=== PATIENT | female | born 1945 | race Caucasian/White ===

== ENCOUNTER → 2023-08-29 | Outpatient (CLI) | payer MEDICARE, OTHER, SELFPAY ==
--- NOTE | 2023-08-29 14:17 | CR.HP_ITS ---
CR - History & Physical General Arrival date:: 08/29/23 Arrival time:: 14:17 Date of Referral:: 08/07/23 Date of CR Evaluation:: 08/29/23 Referring Physician: Gurwinder Wells Primary Diagnosis: CHF with EF</= 35% History of Present Cardiac Event Onset Date Heart Failure EF <35%:: Yes Sleep Disorder Evaluation Hx of Sleep Apnea: No Do you snore loudly (louder than talking or can be heard through closed doors)?: No Do you often feel tired/ fatigued/ sleepy during daytime?: No Has anyone observed you stop breathing during sleep?: No History of Hypertension (for STOP score): Yes STOP Results: Negative Advanced Directives Advanced Directives 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 Living Will: Yes Advance Directives Information Provided: No Advance Directives on File: No DNR Order?:: No Past Medical History Covid-19 Screening Physicial Symptoms Other Clinical Concerns Exposure Risk Pertinent Comorbidities 65 years or older:: Yes Has a chronic lung disease or moderate to severe asthma:: Yes Has a serious heart condition:: Yes Social History Smoking History Smoking Status: Former smoker Years Smokin Packs Smoked per Day: 1 (stopped about 20 years ago) Alcohol Use Alcohol Usage: No Occupation Occupation (List type of work in comments):: Retired Hobbies, Recreation, Social Activities Hobbies: Sewing and Other Recreational Activities: I am able to engage in all my recreational activities Social Environment Status Marital Status: Current Living Arrangements Living Environment:: Family Children How many children do you have?: 4 Do any of your children live nearby?: Yes Safety Do you feel safe in your surroundings?: Yes Assistance Do you need any assistance at home?: no Review of Systems Review of Systems Hints Review of Present Symptoms: Reports Dizziness/Lightheadedness, Appetite - Normal and Appetite - Special Diet; Denies Shortness of Breath at Rest, Shortness of Breath with Exertion, PVD, Operative Discomfort, Angina, Wound Healing, Fatigue, Heart Arrhythmia/Irregularities, Sleep - Normal or Sexual Changes Pain Is Patient Pain Free?: Yes Risk Factor Assessment Chief Complaint Chief Complaint: CHF with EF <35 % Vital Signs Pulse Ox: 95 Blood Pressure: 125/82 Pulse Pulse Rate: 91 Hypertension Blood Pressure Sitting - Right Arm: 125/82 Obesity Height: 5 ft 3 in Weight:: 190 lb Weight in Pounds: 190.0 lbs Body Mass Index (BMI): 33.6 Nutritional Referral for Obesity: No Physical Inactivity Physical Inactivity: Recreational activity Risk Stratification Risk Guidelines: Lowest Risk: Risk Factor for Smoking, Moderate Risk: Risk Factor for Diabetes, Risk Factor for Sedentary Lifestyle and Risk Factor for Depression and Highest Risk: Risk Factor for Dyslipidemia, Risk Factor for Obesity and Risk Factor for Hypertension For Smoking Smoking Risk Guidelines For Dyslipidemia Dyslipidemia Risk Guidelines For Diabetes Mellitus Diabetes Risk Guidelines For Obesity/Overweight Obesity/Overweight Risk Guidelines For Hypertension Hypertension Risk Guidelines For Sedentary Lifestyle Sedentary Lifestyle Risk Guidelines For Depression Depression Risk Guidelines Motivation Motivation to Participate On a scale of 1 to 10, how prepared are you to commit to attending program?: 10 What do you see as barriers to successfully being able to complete the program?: nothing What do you see as the benefits of succesfully completing the program? In other words, what do you hope to get out of participating in the program?: stronger Are there issues you are dealing with that will interfere with completing the program?: no Do you have a spouse or signficant other, family or friends who will help support you to complete the program?: yes
[2023-08-29 14:28] VITALS: BP 125/82; PULSE 91; O2SAT 95
--- NOTE | 2023-08-29 14:29 | PCM.CR.ITP ---
Diagnosis General Information Admitting Diagnosis: CHF w/EF <35% Personal Learning Style:: Audio/Visual Stage of change r/t lifestyle modifications:: Contemplation Gave educational material for:: Treating Heart Disease, How The Heart Works, What it means to have Heart Disease, How Coronary Artery Disease is Diagnosed, Heart Procedures, What Heart Medications Do, Risk Factors & Modifications, Living an Active Life, Nutrition, Emotions & Heart Disease, Stress Management & Relaxation and Sleep Disorders & Heart Disease Education/Goals Cardiac Rehabilitation Goals Personal Goals: Initial Assessment: Improve energy level, Get back to work, or to resume activities faster, Improve muscle strength and endurance and Control risk factors (learn risk factor modification) Scale for measuring improvement of personal goals Diagnosis & Disease Process Outcomes/Goals: Pt IDs own risk factors & lifestyle modifications by Session 10, Verbalizes symptoms of angina & response by session 3., Pt independently manages and Other Additional Outcomes/Goals: Plan/Interventions: Assist Pt to ID & engage in lifestyle modification to reduce CVD risk, Instruct on individual risk factors, Review symptoms of angina & emergency actions, Review secondary diagnosis & identify educational needs. and Other see comment 30 day Reassessments:: Not Met 30 day Reassessments:: Not Met 30 day Reassessments:: Not Met 30 day Reassessments:: Not Met Final Reassessments:: Not Met Safety Referral to Physical Therapy: No Referral to [facility] Case Management: No Fall Risk Assessed:: Yes Assistive Devices:: None Exercise - Initial Assessment Visit Date of Eval: 08/29/23 (initial eval ) Mets: Pre-: >3 METS for 30 minutes by discharge, >5 METS for 30 minutes by discharge, >7 METS for 30 minutes by discharge and Unable to meet goal due to: (see comment below) Physician Prescribed Exercise Modalities: Treadmill, Rower, Airdyne, NuStep, SciFit and Lateral Pediatric Clinical Dietician Frequency: 3x/week for 12 weeks [36 sessions] Intensity: 60-80% of age predicted maximum heart rate reserve Duration: 30 - 45 minutes Current METSs:: 3 Target Heart Rate:: 93-107 Resting Blood Pressure: 125/82 EKG Type: SR Bi-ventricular pacing Outcomes & Goals Goals:: Verbalizes understanding of THR, RPE & goal METS by session 6, Documents in home exercise log/reports 30 min aerobic 5 day/wk by DC, Demonstrates accurate pulse taking by DC and Other additional outcome/goals: see below Intervention & Plan Exercise Program Goals: Instruct on personal THR & RPE, Instruct on MET level & personal MET goal, Show patient to take own pulse /validate performance until accurate, Instruct on home exercise and Other additional plan/int Physical Activity Home Exercise Physical Activity - Home Exercise: Safe Exercise, Warm-up, Self-monitoring, Cool-Down, Home Exercise > 30 min Daily and Sitting Time <3 hours/daily Outcomes & Goals Outcomes/Goals: Demonstrates correct Warm-up/exercise Cool-Down (S3) if = 2.5 METs, Verbalizes symptoms of exercise intolerance by Session 3 (S3), Demonstrate safe equipment use (S3) & follows exercise prescrition (6) and Other: See below Intervention & Plan Plan/Intervention: Instruct warm-up & cool-down if exercising at > 2 METs, Instruct on symptoms of exercise intolerance & actions to take, Instruct & monitor on saf, Assess intial functional capacity & safety risk and Other See below Nutrition - Initial Assessment Program Goals Nutrition Program Goals Patient has diagnosis of Hyperlipidemia (ICD E78)?: Yes Visit Date of Eval: 08/29/23 (initial eval ) Cholesterol/Lipids (Other Core Measures) Determine presence & major risk factors that modify LDL goal: Cigarette smoking, Hypertension or hypertensive medication, Low HDL cholesterol <40 mg/dL*, Family history of premature CHD in Male < 55 years: female <65 yearsFa and Age men > 45 years; women >/= 55 years Outcomes/Goals: Pt IDs own risk factors & lifestyle modifications by Session 10, Verbalizes symptoms of angina & response by session 3., Pt independently manages and Other Additional Outcomes/Goals: Intervention/Plan: Advocate for lipid panel cholesterol medication if applicable, Instruct on personal lipid levels & lipid goals/NCEP guidelines, Instruct on cholesterol and Other additional plan/int Referral to dietitian:: No (declines) Weight Mgt (Other Care) Height: 5 ft 3 in Weight:: 190 lb BMI: 33.6 Diagnosis Overweight/Obesity BMI> 30% ICD-10 E66: Yes Diagnosis High BMI/Morbid Obesity BMI> 35% ICD-10 Z68: No Outcomes/Goals: Pt sets, maintains & shows weight loss goal & trend during rehab and Other additional outcomes/goals Intervention/Plan: Instruct on ideal BMI & set weight loss goal w/patient, Assist pt to ID & incorporate diet changes for weight loss by S9, Refer to Structured Weight Loss program as appropriate, Encourage goal of using 250-300dcal per session for weight loss and Other additional plan/interventions Healthy Eating Habits Will attend diet classes:: Yes Outcomes/Goals:: Consume diet rich in vegs,fruits,whole grain/high fiber,fish,lean meat, Limit sat/trans fats,cholesterol & added salts & sugars and Other additional outcome/goals: Intervention/Plan:: Assess current eating habits and Other Additional plan/interventions Education Gave educational materials for:: Signs & symptoms of hypoglycemia, Signs & symptoms of hyperglycemia, Relate diabetes to coronary artery disease and Healthy eating Core - Initial Assessment Visit Date of Eval: 08/29/23 (initial eval ) Medication Compliance Preventative Medication(s):: Aspirin and Beta lorenzo H/O mental health issues: depression, anxiety, or addiction?: No Doesn?t believe in the benefits of treatment?: No Believes medications are unnecessary or harmful?: No Has a concern about medication side effects?: No Expresses concern over the cost of medications?: No Outcomes/Goals: Verbalizes medications,desired effect & common side effects @ DC, Pt self-reports following medication regimen, Keeps card in wallet w/medications listed by DC and Other additional outcome/goals: Interventions/plans: Instruct on medication effects & side effects, Review medication list w/patient every two weeks, Instruct importance of taking meds as ordered & assist problem solving and Other additional Tobacco Use Tobacco Use: Non-smoker How long ago did you quit using tobacco products?: Greater than or equal to 6 months ago Years Smokin Hypertension Hypertension Diagnosis:: Hypertension ICD-10 I10 Resting Blood Pressure:: 125/82 [place] [employer] Hypertension Guidelines Outcomes/Goals: Able to verbalize/achieve optimal blood pressure <130/80, Incorporates diet changes & exercise for blood pressure control by DC and Other additional outcomes/goals Interventions/plan: Instruct on optimal blood pressure, hypertension & medications, Instruct on effects of sodium, alcohol, stress, exercise &hypertension and Other additional plan/interventions Tobacco Cessation Referral Smoking Cessation Referral:: No Individual Education/Counseling:: No Education Schedule Given:: Yes Psychosocial - Initial Assess VIsit Date of Eval: 08/29/23 History of previous Mental disease:: No Target Goals Target Goals Outcomes/Goals: See list Psychosocial Outcomes/Goals:: ID's personal stressors & 2 strategies to manage stress by discharge and Other Additional outcome/goals: Intervention/Plan: See List Interventions/Plan:: Assess stressors,coping strategies & signs of derpression on admission, Instruct/assist pt to develop coping & personal stress Mgt strategies, Refer to Behavioral Health if appropriate, Refer to Physician if appropriate, Instruct patient to recognize signs & symptoms of depression, Instruct patient to recog and Other additional plan/intervention Patient Health Questionnaire PHQ-9 Screening Initial Assessment: 1. Little interest or pleasure in doing things: Not at all 2. Feeling down, depressed, or hopeless: Not at all 3. Trouble falling or staying asleep, or sleeping too much: Several days 4. Feeling tired or having little energy: Several days 5. Poor appetite or overeating: Not at all 6. Feeling bad about yourself -- or that you are a failure or have let yourself or your family down: Not at all 7. Trouble concentrating on things, such as reading the newspaper or watching television: Several days 8. Moving or speaking so slowly that other people could have noticed. Or the opposite - being so fidgety or restless that you have been moving around a lot more than usual: Several days 9. Thoughts that you would be better off , or of hurting yourself in some way: Not at all How difficult have these problems made it for you to do your work, take care of things at home, or get along with other people?: Not difficult at all Total Score: 4 MIN-Q SV Test Statements CAD is a disease of the arteries in the heart: False Examples of risk factors for heart disease: True Angina is chest pain or discomfort: True The benefits of resistance training include: I Don't Know Eating more meat and dairy products: False Anti-platelet medications such as aspirin are important: True The only effective way to manage stress: False An exercise warm-up slowly increases heart rate: I Don't Know Prepared, processed foods usually have high sodium: True Depression is common after a heart attack: I Don't Know The statin medications lower cholesterol: True To control blood pressure, lower the amount of sodium: True If someone gets chest discomfort during walking: False Transfats are partially hydrogenated vegetable oils: True Sleep apnea that is not treated increases the risk: I Don't Know To control cholesterol, one should become a vegetarian: False Someone knows if he/she is exercising at the right level: I Don't Know Diabetes cannot be prevented with exercise & health eating: I Don't Know Stress is a large risk for heart attack: True A diet that can help lower blood pressure is rich in: True Total Score Total Correct Responses: 14 Self-Efficacy 6-Item Scale Initial Assessment: We would like to know how confident you are in doing certain activities. Please select your confidence level for: Fatigue Select Number: 6 Physical Discomfort or Pain Select Number: 7 Emotional Distress Select Number: 7 Other Symptoms or Health Problems Select Number: 6 Different Tasks and Activities Select Number: 6 Medication Select Number: 7 Total Score:: 6 Nutrition Survey Nutrition Survey Instructions Scoring Instructions Nutrition Survey Initial: Have you lost >10 lbs over the past 2 months without trying?: No Are you following a special diet at home for diabetes, low fat, or low salt?: Yes Are you interested in meeting with a dietitian for help understanding your diet?: Yes Do you eat less than 3 meals a day?: No Do you eat fatty meats (junior, sausage, ribs, etc), fried foods, desserts, large amounts of salad dressings, margarine, butter, or cheese most days?: No Do you have food allergies? [Enter types in comment field]: No Do you eat in restaurants more than 3 times a week?: No Do you season food with salt, seasoning salt, or garlic salt?: Yes Do you used canned, boxed, frozen meals, or soups, seasoning packets?: No Total Score:: 3 Exercise - Final/Discharge Physician Prescribed Exercise Modalities: Treadmill, Rower, Airdyne, NuStep, SciFit and Lateral Pediatric Clinical Dietician Frequency: 3x/week for 12 weeks [36 sessions] Intensity: 60-80% of age predicted maximum heart rate reserve Current METSs:: 3 Target Heart Rate:: 93-107 Nutrition - 30-Day Assessment Weight Mgt (Other Care) Height: 5 ft 3 in Weight:: 190 lb BMI: 33.6 Nutrition - 60-Day Assessment Weight Mgt (Other Care) Height: 5 ft 3 in Weight:: 190 lb BMI: 33.6 Core - 30-Day Assessment Tobacco Use Years Smokin Core - Final Assessment Hypertension Resting Blood Pressure:: 125/82 [place] [employer] Hypertension Guidelines Core - 60-Day Assessment Hypertension Resting Blood Pressure:: 125/82 [place] [employer] Hypertension Guidelines Psychosocial - 30-Day Assess Target Goals Target Goals Psychosocial - 60-Day Assess Target Goals Target Goals Psychosocial - 90-Day Assess Target Goals Target Goals Psychosocial - Final Assessmen Target Goals Target Goals Nutrition - 90-Day Assessment Weight Mgt (Other Care) Height: 5 ft 3 in Weight:: 190 lb BMI: 33.6 Nutrition - Final Assessment Program Goals Patient has diagnosis of Hyperlipidemia (ICD E78)?: Yes Weight Mgt (Other Care) Height: 5 ft 3 in Weight:: 190 lb BMI: 33.6
[2023-08-29 15:17] VITALS: BP 125/82
[2023-08-29 15:22] VITALS: BMI 33.6
[2023-08-29 15:25] VITALS: BP 125/82
[2023-08-29 15:37] VITALS: BMI 33.6
== END | disposition home or self-care (01) ==
PROVIDERS: PCP Student in an Organized Health Care Education/Training Program
DX: Z00.00 Encounter for general adult medical examination without abnormal findings (principal)

== ENCOUNTER 2023-09-10 10:15 | Outpatient (RCR) | payer MEDICARE, OTHER, SELFPAY ==
[2023-08-29 15:22] VITALS: BMI 33.6
== END 2023-09-11 23:59 ==
LOC: CR 10:15
PROVIDERS: PCP Student in an Organized Health Care Education/Training Program
DX: I50.22 Chronic systolic (congestive) heart failure (principal)
CPT/HCPCS: 93798

== ENCOUNTER 2023-10-10 10:15 | Outpatient (RCR) | payer MEDICARE, OTHER, SELFPAY ==
[2023-08-29 15:22] VITALS: BMI 33.6
--- NOTE | 2023-09-26 09:41 | PCM.CR.ITP ---
Exercise - Initial Assessment Visit Session #:: 10 Nutrition - Initial Assessment Weight Mgt (Other Care) Height: 5 ft 3 in Weight:: 193 lb 8 oz BMI: 34.2 Psychosocial - Initial Assess Target Goals Target Goals Patient Health Questionnaire PHQ-9 Screening 30-Day Re-eval Assessment: 1. Little interest or pleasure in doing things: Not at all 2. Feeling down, depressed, or hopeless: Not at all 3. Trouble falling or staying asleep, or sleeping too much: Several days 4. Feeling tired or having little energy: Several days 5. Poor appetite or overeating: Not at all 6. Feeling bad about yourself -- or that you are a failure or have let yourself or your family down: Not at all 7. Trouble concentrating on things, such as reading the newspaper or watching television: Several days 8. Moving or speaking so slowly that other people could have noticed. Or the opposite - being so fidgety or restless that you have been moving around a lot more than usual: Several days 9. Thoughts that you would be better off , or of hurting yourself in some way: Not at all How difficult have these problems made it for you to do your work, take care of things at home, or get along with other people?: Not difficult at all Total Score: 4 Self-Efficacy 6-Item Scale 30-Day Re-eval Assessment: We would like to know how confident you are in doing certain activities. Please select your confidence level for: Fatigue Select Number: 6 Physical Discomfort or Pain Select Number: 7 Emotional Distress Select Number: 7 Other Symptoms or Health Problems Select Number: 6 Different Tasks and Activities Select Number: 6 Medication Select Number: 7 Total Score:: 6 Nutrition Survey Nutrition Survey Instructions Scoring Instructions Exercise - 30-day Assessment Visit Date of Eval: 09/26/23 Session #:: 10 Physician Prescribed Exercise Modalities: Treadmill, Airdyne and NuStep Frequency: 3x/week for 12 weeks [36 sessions] Intensity: 60-80% of age predicted maximum heart rate reserve Duration: 30 - 45 minutes Current METSs:: 3.6 Target Heart Rate:: 93-107 Current RPE:: 11-12 Maximum Excercise HR:: 114 Resting Blood Pressure: 130/82 Maximum Exercise Blood Pressure: 158/88 EKG Type: atrial sensed ventricular paced rhythm Outcomes & Goals Goals:: Verbalizes understanding of THR, RPE & goal METS by session 6, Documents in home exercise log/reports 30 min aerobic 5 day/wk by DC, Demonstrates accurate pulse taking by DC and Other additional outcome/goals: see below Intervention & Plan Exercise Program Goals: Instruct on personal THR & RPE, Instruct on MET level & personal MET goal, Show patient to take own pulse /validate performance until accurate, Instruct on home exercise and Other additional plan/int 30-day Reassessments 30 day Reassessments:: Progressing Reassessment Notes & Comments:: RPE explained Physical Activity Home Exercise Physical Activity - Home Exercise: Safe Exercise, Warm-up, Self-monitoring, Cool-Down, Home Exercise > 30 min Daily and Sitting Time <3 hours/daily Outcomes & Goals Outcomes/Goals: Demonstrates correct Warm-up/exercise Cool-Down (S3) if = 2.5 METs, Verbalizes symptoms of exercise intolerance by Session 3 (S3), Demonstrate safe equipment use (S3) & follows exercise prescrition (6) and Other: See below Intervention & Plan Plan/Intervention: Instruct warm-up & cool-down if exercising at > 2 METs, Instruct on symptoms of exercise intolerance & actions to take, Instruct & monitor on saf, Assess intial functional capacity & safety risk and Other See below 30-day Reassessments 30 day Reassessments:: Progressing Reassessment Notes & Comments:: warm up encouraged Nutrition - 30-Day Assessment Program Goals Nutrition Program Goals Patient has diagnosis of Hyperlipidemia (ICD E78)?: Yes Visit Date of Eval: 09/26/23 Session #:: 10 Cholesterol/Lipids (Other Core Measures) Determine presence & major risk factors that modify LDL goal: Cigarette smoking, Hypertension or hypertensive medication, Low HDL cholesterol <40 mg/dL*, Family history of premature CHD in Male < 55 years: female <65 yearsFa and Age men > 45 years; women >/= 55 years Outcomes/Goals: Pt IDs own risk factors & lifestyle modifications by Session 10, Verbalizes symptoms of angina & response by session 3., Pt independently manages and Other Additional Outcomes/Goals: Intervention/Plan: Advocate for lipid panel cholesterol medication if applicable, Instruct on personal lipid levels & lipid goals/NCEP guidelines, Instruct on cholesterol and Other additional plan/int Referral to dietitian:: No 30-day Reassessments:: Progressing Reassessment Notes & Comments:: pt to attend nutrition class Weight Mgt (Other Care) Height: 5 ft 3 in Weight:: 193 lb 8 oz BMI: 34.2 Diagnosis Overweight/Obesity BMI> 30% ICD-10 E66: Yes Diagnosis High BMI/Morbid Obesity BMI> 35% ICD-10 Z68: No Outcomes/Goals: Pt sets, maintains & shows weight loss goal & trend during rehab and Other additional outcomes/goals Intervention/Plan: Instruct on ideal BMI & set weight loss goal w/patient, Assist pt to ID & incorporate diet changes for weight loss by S9, Refer to Structured Weight Loss program as appropriate, Encourage goal of using 250-300dcal per session for weight loss and Other additional plan/interventions 30 day Reassessments:: Progressing Reassessment Notes & Comments:: pt to attend nutrition class Healthy Eating Habits Will attend diet classes:: Yes Outcomes/Goals:: Consume diet rich in vegs,fruits,whole grain/high fiber,fish,lean meat, Limit sat/trans fats,cholesterol & added salts & sugars and Other additional outcome/goals: Intervention/Plan:: Assess current eating habits and Other Additional plan/interventions 30-day Reassessments:: Progressing Reassessment Notes & Comments:: pt to attend nutrition class Education Gave educational materials for:: Signs & symptoms of hypoglycemia, Signs & symptoms of hyperglycemia, Relate diabetes to coronary artery disease and Healthy eating Nutrition - 60-Day Assessment Weight Mgt (Other Care) Height: 5 ft 3 in Weight:: 193 lb 8 oz BMI: 34.2 Core - 30-Day Assessment Visit Date of Eval: 09/26/23 Session #:: 10 Medication Compliance Preventative Medication(s):: Aspirin and Beta lorenzo H/O mental health issues: depression, anxiety, or addiction?: No Doesn?t believe in the benefits of treatment?: No Believes medications are unnecessary or harmful?: No Has a concern about medication side effects?: No Expresses concern over the cost of medications?: No Outcomes/Goals: Verbalizes medications,desired effect & common side effects @ DC, Pt self-reports following medication regimen, Keeps card in wallet w/medications listed by DC and Other additional outcome/goals: Interventions/plans: Instruct on medication effects & side effects, Review medication list w/patient every two weeks, Instruct importance of taking meds as ordered & assist problem solving and Other additional 30-day Reassessments:: Progressing Reassessment Notes & Comments:: 09/01 started Jardiance daily and Lasix dc'd Tobacco Use Tobacco Use: Non-smoker Hypertension Hypertension Diagnosis:: Hypertension ICD-10 I10 Resting Blood Pressure:: 130/82 [place] [employer] Hypertension Guidelines Peak Exercise Blood Pressure:: 158/88 Outcomes/Goals: Able to verbalize/achieve optimal blood pressure <130/80, Incorporates diet changes & exercise for blood pressure control by DC and Other additional outcomes/goals Interventions/plan: Instruct on optimal blood pressure, hypertension & medications, Instruct on effects of sodium, alcohol, stress, exercise &hypertension and Other additional plan/interventions 30 day Reassessments:: Progressing Reassessment Notes & Comments:: pt encouraged to take his meds Tobacco Cessation Referral Smoking Cessation Referral:: No Individual Education/Counseling:: No Education Schedule Given:: Yes Psychosocial - 30-Day Assess VIsit Date of Eval: 09/26/23 Session #:: 10 History of previous Mental disease:: No Target Goals Target Goals Outcomes/Goals: See list Psychosocial Outcomes/Goals:: ID's personal stressors & 2 strategies to manage stress by discharge and Other Additional outcome/goals: Intervention/Plan: See List Interventions/Plan:: Assess stressors,coping strategies & signs of derpression on admission, Instruct/assist pt to develop coping & personal stress Mgt strategies, Refer to Behavioral Health if appropriate, Refer to Physician if appropriate, Instruct patient to recognize signs & symptoms of depression, Instruct patient to recog and Other additional plan/intervention 30-day Reassessments: 30 day Reassessments:: Met Psychosocial - 60-Day Assess Target Goals Target Goals Outcomes/Goals: See list Psychosocial Outcomes/Goals:: ID's personal stressors & 2 strategies to manage stress by discharge and Other Additional outcome/goals: Psychosocial - 90-Day Assess Target Goals Target Goals Psychosocial - Final Assessmen Target Goals Target Goals Nutrition - 90-Day Assessment Weight Mgt (Other Care) Height: 5 ft 3 in Weight:: 193 lb 8 oz BMI: 34.2 Nutrition - Final Assessment Weight Mgt (Other Care) Height: 5 ft 3 in Weight:: 193 lb 8 oz BMI: 34.2
[2023-09-26 09:53] VITALS: BP 130/82; BMI 34.2
== END 2023-10-12 23:59 ==
LOC: CR 10:15
PROVIDERS: PCP Student in an Organized Health Care Education/Training Program
DX: I50.22 Chronic systolic (congestive) heart failure (principal)
CPT/HCPCS: 93798

== ENCOUNTER 2023-11-05 10:15 | Outpatient (RCR) | payer MEDICARE, OTHER, SELFPAY ==
[2023-09-26 09:53] VITALS: BMI 34.2
[2023-10-13 02:30] VITALS: BP 130/82
--- NOTE | 2023-10-29 05:22 | CR.ITP_ITS ---
Exercise - Initial Assessment Physician Prescribed Exercise Modalities: Treadmill, Schwinn Airdyne AD-7 and SciFit Stepper Nutrition - Initial Assessment Weight Mgt (Other Care) Height: 5 ft 3 in Weight:: 193 lb 8 oz BMI: 34.2 Psychosocial - Initial Assess Target Goals Target Goals Referral to Behavioral Health PS - Interventions: Yes: Attend Stress Management Classes and No: Referral to Behavioral Health if PHQ-9 score >9:, No: Referral to [facility] and No: Referral to Physician if PHQ-9 if score is 5-9: Patient Health Questionnaire PHQ-9 Screening 60-Day Re-eval Assessment: 1. Little interest or pleasure in doing things: Not at all 2. Feeling down, depressed, or hopeless: Not at all 3. Trouble falling or staying asleep, or sleeping too much: Several days 4. Feeling tired or having little energy: Not at all 5. Poor appetite or overeating: Not at all 6. Feeling bad about yourself -- or that you are a failure or have let yourself or your family down: Not at all 7. Trouble concentrating on things, such as reading the newspaper or watching television: Not at all 8. Moving or speaking so slowly that other people could have noticed. Or the opposite - being so fidgety or restless that you have been moving around a lot more than usual: Not at all 9. Thoughts that you would be better off , or of hurting yourself in some way: Not at all How difficult have these problems made it for you to do your work, take care of things at home, or get along with other people?: Not difficult at all Total Score: 1 Self-Efficacy 6-Item Scale 60-Day Re-eval Assessment: We would like to know how confident you are in doing certain activities. Please select your confidence level for: Fatigue Select Number: 8 Physical Discomfort or Pain Select Number: 9 Emotional Distress Select Number: 9 Other Symptoms or Health Problems Select Number: 7 Different Tasks and Activities Select Number: 7 Medication Select Number: 9 Total Score:: 8 Nutrition Survey Nutrition Survey Instructions Scoring Instructions Exercise - 30-day Assessment Physician Prescribed Exercise Modalities: Treadmill, Schwinn Airdyne AD-7 and SciFit Stepper Exercise - 60-day Assessment Visit Date of Eval: 10/29/23 Session #:: 19 Comments:: Patient has missed 5 scheduled sessions to date. Physician Prescribed Exercise Modalities: Treadmill, Schwinn Airdyne AD-7 and SciFit Stepper Frequency: 3x/week for 12 weeks [36 sessions] Intensity: 60-80% of age predicted maximum heart rate reserve Duration: 30 - 45 minutes Current METSs:: 3.5 Target Heart Rate:: 93-107 Current RPE:: 11-12 Maximum Excercise HR:: 110 Resting Blood Pressure: 120/70 Maximum Exercise Blood Pressure: 150/80 EKG Type: NSR to sinus tach w/BBB rate dependent bi-ventricular pacing, occ. PVC Current Physical Activity or Exercising minutes: 38:40 Outcomes & Goals Goals:: Verbalizes understanding of THR, RPE & goal METS by session 6, Documents in home exercise log/reports 30 min aerobic 5 day/wk by DC and Demonstrates accurate pulse taking by DC Intervention & Plan Exercise Program Goals: Instruct on personal THR & RPE, Instruct on MET level & personal MET goal, Show patient to take own pulse /validate performance until accurate and Instruct on home exercise 30-day Reassessments 30 day Reassessments:: Met Physical Activity Home Exercise Physical Activity - Home Exercise: Safe Exercise, Warm-up, Self-monitoring, Cool-Down, Home Exercise > 30 min Daily and Sitting Time <3 hours/daily Outcomes & Goals Outcomes/Goals: Demonstrates correct Warm-up/exercise Cool-Down (S3) if = 2.5 METs, Verbalizes symptoms of exercise intolerance by Session 3 (S3) and Demonstrate safe equipment use (S3) & follows exercise prescrition (6) Intervention & Plan Plan/Intervention: Instruct warm-up & cool-down if exercising at > 2 METs, Instruct on symptoms of exercise intolerance & actions to take, Instruct & monitor on saf and Assess intial functional capacity & safety risk 30-day Reassessments 30 day Reassessments:: Met Exercise - 90-day Assessment Physician Prescribed Exercise Modalities: Treadmill, Schwinn Airdyne AD-7 and SciFit Stepper Exercise - Final/Discharge Physician Prescribed Exercise Modalities: Treadmill, Schwinn Airdyne AD-7 and SciFit Stepper Nutrition - 30-Day Assessment Weight Mgt (Other Care) Height: 5 ft 3 in Weight:: 193 lb 8 oz BMI: 34.2 Nutrition - 60-Day Assessment Program Goals Nutrition Program Goals Patient has diagnosis of Hyperlipidemia (ICD E78)?: Yes Visit Date of [place]: 10/29/23 Session #:: 19 Cholesterol/Lipids (Other Core Measures) Total Triglycerides (mg/dL): 0 (no lipids available) Determine presence & major risk factors that modify LDL goal: Hypertension or hypertensive medication and Age men > 45 years; women >/= 55 years Outcomes/Goals: Pt IDs own risk factors & lifestyle modifications by Session 10, Verbalizes symptoms of angina & response by session 3. and Pt independently manages Intervention/Plan: Instruct on personal lipid levels & lipid goals/NCEP guidelines and Instruct on cholesterol 30-day Reassessments:: Progressing Diabetes (Other Core Measures) Diabetes Type: Not Applicable Weight Mgt (Other Care) Not Applicable: No Height: 5 ft 3 in Weight:: 193 lb 8 oz BMI: 34.2 Diagnosis Overweight/Obesity BMI> 30% ICD-10 E66: Yes Diagnosis High BMI/Morbid Obesity BMI> 35% ICD-10 Z68: No Outcomes/Goals: Pt sets, maintains & shows weight loss goal & trend during rehab Intervention/Plan: Instruct on ideal BMI & set weight loss goal w/patient, Assist pt to ID & incorporate diet changes for weight loss by S9, Refer to Structured Weight Loss program as appropriate and Encourage goal of using 250- 300dcal per session for weight loss 30 day Reassessments:: Not Met Reassessment Notes & Comments:: No weight loss Healthy Eating Habits Will attend diet classes:: Yes Outcomes/Goals:: Consume diet rich in vegs,fruits,whole grain/high fiber,fish,lean meat and Limit sat/trans fats,cholesterol & added salts & sugars Intervention/Plan:: Assess current eating habits 30-day Reassessments:: Progressing Education Gave educational materials for:: Healthy eating Core - 60-Day Assessment Visit Date of Eval: 10/29/23 Session #:: 19 Medication Compliance Preventative Medication(s):: Aspirin and Beta lorenzo H/O mental health issues: depression, anxiety, or addiction?: No Doesn?t believe in the benefits of treatment?: No Believes medications are unnecessary or harmful?: No Has a concern about medication side effects?: No Expresses concern over the cost of medications?: No Outcomes/Goals: Verbalizes medications,desired effect & common side effects @ DC, Pt self-reports following medication regimen and Keeps card in wallet w/medications listed by DC Interventions/plans: Instruct on medication effects & side effects, Review medication list w/patient every two weeks and Instruct importance of taking meds as ordered & assist problem solving 30-day Reassessments:: Met Tobacco Use Tobacco Use: Non-smoker Hypertension Hypertension Diagnosis:: Hypertension ICD-10 I10 Resting Blood Pressure:: 120/70 [place] [employer] Hypertension Guidelines Peak Exercise Blood Pressure:: 150/80 Outcomes/Goals: Able to verbalize/achieve optimal blood pressure <130/80 and Incorporates diet changes & exercise for blood pressure control by DC Interventions/plan: Instruct on optimal blood pressure, hypertension & medications and Instruct on effects of sodium, alcohol, stress, exercise &hypertension 30 day Reassessments:: Met Tobacco Cessation Referral Smoking Cessation Referral:: No Individual Education/Counseling:: No Education Schedule Given:: Yes Psychosocial - 30-Day Assess Target Goals Target Goals Referral to Behavioral Health PS - Interventions: Yes: Attend Stress Management Classes and No: Referral to Behavioral Health if PHQ-9 score >9:, No: Referral to [facility] and No: Referral to Physician if PHQ-9 if score is 5-9: Outcomes/Goals: See list Psychosocial Outcomes/Goals:: ID's personal stressors & 2 strategies to manage stress by discharge Psychosocial - 60-Day Assess VIsit Date of Eval: 10/29/23 Session #:: 19 Not Applicable: Yes History of previous Mental disease:: No Target Goals Target Goals Psychosocial Test Tool Used:: PHQ-9 Questionnaire phq-9 Severity Referral to Behavioral Health PS - Interventions: Yes: Attend Stress Management Classes and No: Referral to Behavioral Health if PHQ-9 score >9:, No: Referral to [facility] and No: Referral to Physician if PHQ-9 if score is 5-9: Outcomes/Goals: See list Psychosocial Outcomes/Goals:: ID's personal stressors & 2 strategies to manage stress by discharge Intervention/Plan: See List Interventions/Plan:: Assess stressors,coping strategies & signs of derpression on admission, Instruct/assist pt to develop coping & personal stress Mgt strategies, Instruct patient to recognize signs & symptoms of depression and Instruct patient to recog 30-day Reassessments: 30 day Reassessments:: Met Psychosocial - 90-Day Assess Target Goals Target Goals Referral to Behavioral Health PS - Interventions: Yes: Attend Stress Management Classes and No: Referral to Behavioral Health if PHQ-9 score >9:, No: Referral to [facility] and No: Referral to Physician if PHQ-9 if score is 5-9: Psychosocial - Final Assessmen Target Goals Target Goals Referral to Behavioral Health PS - Interventions: Yes: Attend Stress Management Classes and No: Referral to Behavioral Health if PHQ-9 score >9:, No: Referral to [facility] and No: Referral to Physician if PHQ-9 if score is 5-9: Nutrition - 90-Day Assessment Weight Mgt (Other Care) Height: 5 ft 3 in Weight:: 193 lb 8 oz BMI: 34.2 Nutrition - Final Assessment Weight Mgt (Other Care) Height: 5 ft 3 in Weight:: 193 lb 8 oz BMI: 34.2
[2023-10-29 05:31] VITALS: BP 120/70; BMI 34.2
== END 2023-11-11 23:59 ==
LOC: CR 10:15
PROVIDERS: PCP Student in an Organized Health Care Education/Training Program
DX: I50.22 Chronic systolic (congestive) heart failure (principal)
CPT/HCPCS: 93798

== ENCOUNTER 2023-11-12 08:14 | Outpatient (RCR) | payer MEDICARE, OTHER, SELFPAY ==
[2023-10-29 05:31] VITALS: BMI 34.2
[2023-11-12 00:23] VITALS: BP 120/70; BP 130/82
--- NOTE | 2023-11-28 13:02 | CR.ITP_ITS ---
Exercise - Initial Assessment Physician Prescribed Exercise Modalities: Treadmill, Schwinn Airdyne AD-7 and SciFit Stepper Nutrition - Initial Assessment Weight Mgt (Other Care) Height: 5 ft 3 in Weight:: 194 lb BMI: 34.3 Psychosocial - Initial Assess Target Goals Target Goals Patient Health Questionnaire PHQ-9 Screening 90-Day Re-eval Assessment: 1. Little interest or pleasure in doing things: Not at all 2. Feeling down, depressed, or hopeless: Not at all 3. Trouble falling or staying asleep, or sleeping too much: Several days 4. Feeling tired or having little energy: Not at all 5. Poor appetite or overeating: Not at all 6. Feeling bad about yourself -- or that you are a failure or have let yourself or your family down: Not at all 7. Trouble concentrating on things, such as reading the newspaper or watching television: Not at all 8. Moving or speaking so slowly that other people could have noticed. Or the opposite - being so fidgety or restless that you have been moving around a lot more than usual: Not at all 9. Thoughts that you would be better off , or of hurting yourself in some way: Not at all How difficult have these problems made it for you to do your work, take care of things at home, or get along with other people?: Not difficult at all Total Score: 1 Self-Efficacy 6-Item Scale 90-Day Re-eval Assessment: We would like to know how confident you are in doing certain activities. Please select your confidence level for: Fatigue Select Number: 8 Physical Discomfort or Pain Select Number: 9 Emotional Distress Select Number: 9 Other Symptoms or Health Problems Select Number: 7 Different Tasks and Activities Select Number: 7 Medication Select Number: 9 Total Score:: 8 Nutrition Survey Nutrition Survey Instructions Scoring Instructions Exercise - 30-day Assessment Physician Prescribed Exercise Modalities: Treadmill, Schwinn Airdyne AD-7 and SciFit Stepper Exercise - 60-day Assessment Physician Prescribed Exercise Modalities: Treadmill, Schwinn Airdyne AD-7 and SciFit Stepper Exercise - 90-day Assessment Visit Date of Eval: 11/28/23 Session #:: 23 Comments:: pt is currently on med hold for back pain and passing out Physician Prescribed Exercise Modalities: Treadmill, Schwinn Airdyne AD-7 and SciFit Stepper Frequency: 3x/week for 12 weeks [36 sessions] Intensity: 60-80% of age predicted maximum heart rate reserve Duration: 30 - 45 minutes Current METSs:: 3.6 Target Heart Rate:: 93-107 Current RPE:: 11-12.5 Maximum Excercise HR:: 101 Resting Blood Pressure: 122/76 Maximum Exercise Blood Pressure: 150/70 EKG Type: SR to ST w/BBB and rate dependent bi-ventricular pacing, occas pvc, vent bi Outcomes & Goals Goals:: Verbalizes understanding of THR, RPE & goal METS by session 6, Documents in home exercise log/reports 30 min aerobic 5 day/wk by DC, Demonstrates accurate pulse taking by DC and Other additional outcome/goals: see below Intervention & Plan Exercise Program Goals: Instruct on personal THR & RPE, Instruct on MET level & personal MET goal, Show patient to take own pulse /validate performance until accurate, Instruct on home exercise and Other additional plan/int 30-day Reassessments 30 day Reassessments:: Met Physical Activity Home Exercise Physical Activity - Home Exercise: Safe Exercise, Warm-up, Self-monitoring, Cool-Down, Home Exercise > 30 min Daily and Sitting Time <3 hours/daily Outcomes & Goals Outcomes/Goals: Demonstrates correct Warm-up/exercise Cool-Down (S3) if = 2.5 METs, Verbalizes symptoms of exercise intolerance by Session 3 (S3), Demonstrate safe equipment use (S3) & follows exercise prescrition (6) and Other: See below Intervention & Plan Plan/Intervention: Instruct warm-up & cool-down if exercising at > 2 METs, Instruct on symptoms of exercise intolerance & actions to take, Instruct & monitor on saf, Assess intial functional capacity & safety risk and Other See below 30-day Reassessments 30 day Reassessments:: Met Exercise - Final/Discharge Physician Prescribed Exercise Modalities: Treadmill, Schwinn Airdyne AD-7 and SciFit Stepper Nutrition - 30-Day Assessment Weight Mgt (Other Care) Height: 5 ft 3 in Weight:: 194 lb BMI: 34.3 Nutrition - 60-Day Assessment Weight Mgt (Other Care) Height: 5 ft 3 in Weight:: 194 lb BMI: 34.3 Core - 90 Day Assessment Visit Date of Eval: 11/28/23 Session #:: 23 Medication Compliance Preventative Medication(s):: Aspirin and Beta lorenzo H/O mental health issues: depression, anxiety, or addiction?: No Doesn?t believe in the benefits of treatment?: No Believes medications are unnecessary or harmful?: No Has a concern about medication side effects?: No Expresses concern over the cost of medications?: No Outcomes/Goals: Verbalizes medications,desired effect & common side effects @ DC, Pt self-reports following medication regimen, Keeps card in wallet w/medications listed by DC and Other additional outcome/goals: Interventions/plans: Instruct on medication effects & side effects, Review medication list w/patient every two weeks, Instruct importance of taking meds as ordered & assist problem solving and Other additional 30-day Reassessments:: Met Tobacco Use Tobacco Use: Non-smoker Hypertension Hypertension Diagnosis:: Hypertension ICD-10 I10 Resting Blood Pressure:: 122/76 [place] [employer] Hypertension Guidelines Peak Exercise Blood Pressure:: 150/70 Outcomes/Goals: Able to verbalize/achieve optimal blood pressure <130/80, Incorporates diet changes & exercise for blood pressure control by DC and Other additional outcomes/goals Interventions/plan: Instruct on optimal blood pressure, hypertension & medications, Instruct on effects of sodium, alcohol, stress, exercise &hypertension and Other additional plan/interventions 30 day Reassessments:: Met Tobacco Cessation Referral Smoking Cessation Referral:: No Individual Education/Counseling:: No Education Schedule Given:: Yes Psychosocial - 30-Day Assess Target Goals Target Goals Psychosocial - 60-Day Assess Target Goals Target Goals Psychosocial - 90-Day Assess VIsit Date of Eval: 11/28/23 Session #:: 23 History of previous Mental disease:: No Target Goals Target Goals Outcomes/Goals: See list Psychosocial Outcomes/Goals:: ID's personal stressors & 2 strategies to manage stress by discharge and Other Additional outcome/goals: Intervention/Plan: See List Interventions/Plan:: Assess stressors,coping strategies & signs of derpression on admission, Instruct/assist pt to develop coping & personal stress Mgt strategies, Refer to Behavioral Health if appropriate, Refer to Physician if appropriate, Instruct patient to recognize signs & symptoms of depression, Instruct patient to recog and Other additional plan/intervention 30-day Reassessments: 30 day Reassessments:: Met Psychosocial - Final Assessmen Target Goals Target Goals Nutrition - 90-Day Assessment Program Goals Nutrition Program Goals Patient has diagnosis of Hyperlipidemia (ICD E78)?: Yes Visit Date of Eval: 11/28/23 Session #:: 23 Cholesterol/Lipids (Other Core Measures) Determine presence & major risk factors that modify LDL goal: Hypertension or hypertensive medication, Low HDL cholesterol <40 mg/dL*, Family history of premature CHD in Male < 55 years: female <65 yearsFa and Age men > 45 years; women >/= 55 years Outcomes/Goals: Pt IDs own risk factors & lifestyle modifications by Session 10, Verbalizes symptoms of angina & response by session 3., Pt independently manages and Other Additional Outcomes/Goals: Intervention/Plan: Advocate for lipid panel cholesterol medication if applicable, Instruct on personal lipid levels & lipid goals/NCEP guidelines, Instruct on cholesterol and Other additional plan/int 30-day Reassessments:: Met Diabetes (Other Core Measures) Diabetes Type: Not Applicable Weight Mgt (Other Care) Height: 5 ft 3 in Weight:: 194 lb BMI: 34.3 Diagnosis Overweight/Obesity BMI> 30% ICD-10 E66: Yes Diagnosis High BMI/Morbid Obesity BMI> 35% ICD-10 Z68: No Outcomes/Goals: Pt sets, maintains & shows weight loss goal & trend during rehab and Other additional outcomes/goals Intervention/Plan: Instruct on ideal BMI & set weight loss goal w/patient, Assist pt to ID & incorporate diet changes for weight loss by S9, Refer to Structured Weight Loss program as appropriate, Encourage goal of using 250- 300dcal per session for weight loss and Other additional plan/interventions 30 day Reassessments:: Met Healthy Eating Habits Will attend diet classes:: Yes Outcomes/Goals:: Consume diet rich in vegs,fruits,whole grain/high fiber,fish,lean meat, Limit sat/trans fats,cholesterol & added salts & sugars and Other additional outcome/goals: Intervention/Plan:: Assess current eating habits and Other Additional plan/interventions 30-day Reassessments:: Met Education Gave educational materials for:: Signs & symptoms of hypoglycemia, Signs & symptoms of hyperglycemia, Relate diabetes to coronary artery disease and Healthy eating Nutrition - Final Assessment Weight Mgt (Other Care) Height: 5 ft 3 in Weight:: 194 lb BMI: 34.3
[2023-11-28 13:15] VITALS: BP 122/76; BMI 34.3
== END 2023-12-12 23:59 ==
LOC: CR 08:14
PROVIDERS: PCP Student in an Organized Health Care Education/Training Program
DX: I50.22 Chronic systolic (congestive) heart failure (principal)
CPT/HCPCS: 93798

== ENCOUNTER 2024-03-27 01:04 | Emergency (ER) | payer MEDICARE, OTHER, SELFPAY ==
[2024-03-27] VITALS (12 sets, daily range): BP systolic 104–159; BP diastolic 70–115; PULSE 71–119; RESP 15–20; TEMP 36.6; O2SAT 79–94; BMI 35.3
--- NOTE | 2024-03-27 01:21 | EKG12_ITS ---
Test Reason : DYSP Blood Pressure : */* mmHG Vent. Rate : 109 BPM Atrial Rate : 109 BPM P-R Int : * ms QRS Dur : 134 ms QT Int : 370 ms P-R-T Axes : 10 -76 55 degrees QTcB Int : 498 ms Ventricular-paced rhythm with occasional Premature ventricular complexes and Fusion complexes Abnormal ECG Confirmed by TEO BRYAN, MONICA ([id number]), newspaper photo editor SINCERE HINSON ([id number]) on 03/27/2024 1:51:10 P M Referred By: Confirmed By: MONICA BRUCE MD
[2024-03-27 01:39] LABS: Bacteria 0 SEEN /hpf (None Seen); Mucous, Urine 0 SEEN /hpf (<or=2+); Red Blood Cells-Urine 0 SEEN /hpf (0-5); White Blood Cells 0 SEEN /hpf (0-5)
[2024-03-27 01:41] LABS: Color, Urine Yellow (Yellow); Glucose, Dipstick Normal (Normal); Ketone-Dipstick Negative (Negative); Leukocyte Esterase-Dipstick Negative /ul (Negative); Nitrite-Dipstick Negative (Negative); Occult Blood-Urine Negative /ul (Negative); Protein-Dipstick 30 mg/dl (Negative); Specific Gravity, Urine 1.015 (1.002-1.030); Urine Bilirubin Dipstick Negative (Negative); Urine Clarity Clear (Clear); Urine Urobilinogen Normal (Normal)
[2024-03-27 01:41] LABS: Absolute Lymphocyte Count 3.11 X10^3/uL (0.83-4.51); Absolute Neutrophil Count 8.8 X10^3/uL (2.0-7.7); Basophil# 0.11 X10^3/uL; Basophil% 0.9 % (0-1); Eosinophil# 0.29 X10^3/uL; Eosinophils% 2.3 % (0-5); Hematocrit 43.6 % (37-47); Hemoglobin 13.7 g/dL (12.0-15.0); Lymphocyte # 3.11 X10^3/ul (0.83-4.51); Lymphocyte % 24.2 % (19-41); Mean Corp Hgb Conc 31.4 g/dL (32-36); Mean Corpuscular Hgb 28.9 pg (27.0-32.0); Mean Platelet Vol. 10.5 fl (6.2-12.0); Monocyte# 0.35 X10^3/uL; Monocyte% 2.7 % (0-10); NRBC Flagged by Analyzer 0 % (0-5); Neutrophil # 8.83 X10^3/uL (2.7-7.7); Neutrophil % 68.8 % (47-70); Platelet Count 333 K/mm3 (150-450); RBC Distribution Width SD 47.4 fl (35.1-43.9); Red Blood Count 4.74 M/mm3 (4.2-5.4); White Blood Count 12.8 K/mm3 (4.4-11.0)
[2024-03-27 01:49] LABS: Squamous Epithelial Cells - UA 0-5 SEEN /hpf (5-10)
[2024-03-27 01:55] LABS: D-Dimer Quantitative (DVT/PE) 0.57 FEU/ug/m (0.27-0.49)
[2024-03-27] MEDS: 0.9% Normal Saline (500mL Bag) 500 ML 999 ML IV (01:56)
[2024-03-27] MEDS: Ondansetron 4 MG/2 ML Vial IV (01:56)
[2024-03-27 02:00] LABS: AST(SGOT) 18 U/L (15-37); Alanine Aminotransfer ALT/SGPT 16 U/L (13-56); Albumin, Serum 3.7 g/dL (3.2-5.0); Alkaline Phosphatase 78 U/L (45-117); Anion Gap 6 (5-15); BUN 33 mg/dL (7-18); BUN/Creat Ratio 30.8 RATIO (10-20); Bilirubin, Direct 0.13 mg/dL (0.00-0.30); Calcium,Total 9.1 mg/dL (8.5-10.1); Chloride 105 mmol/L (98-107); Creatinine, Serum 1.07 mg/dL (0.55-1.02); EST Glomerular Filtration Rate 53 mL/min (>60); Est Glom Filt Rate - Afr Amer 64 mL/min (>60); Estimated Creatinine Clearance 46.99 ml/min; Globulin 4.5 g/dL (2.2-4.2); Glucose 103 mg/dL (74-106); Lipase 51 U/L (13-75); Magnesium 2.1 mg/dL (1.6-2.6); Potassium 3.8 mmol/L (3.5-5.1); Protein, Total 8.2 g/dL (6.4-8.2); Sodium Level 139 mmol/L (136-145)
[2024-03-27 02:06] LABS: BNP,B-Type NATRIURETIC PEPTIDE 268.9 pg/mL (0-100)
--- NOTE | 2024-03-27 02:15 | RAD_ITS ---
INDICATION: dyspnea EXAMINATION/TECHNIQUE: X-RAY - XR Chest 2 Views COMPARISON: No relevant prior comparison study available FINDINGS: LINES/DEVICES: Pacemaker device over left chest with 3 leads terminating over the heart. LUNGS: No consolidation. No pneumothorax. MEDIASTINUM: The aorta is atherosclerotic. CARDIAC SILHOUETTE: Not enlarged. BONES AND SOFT TISSUES: No acute abnormalities. RAD/Chest PA and Lateral IMPRESSION: No evidence of active intrathoracic disease. Electronically Signed: Lacy Pembreton MD at 2:43 EST ,
--- NOTE | 2024-03-27 02:30 | CT_ITS ---
EXAM: CT Abdomen And Pelvis W/ Contrast Injection HISTORY: abd pain TECHNIQUE: Routine protocol CT abdomen pelvis. IV Contrast: IV 100mL Isovue-370 . Oral Contrast: without. Sagittal and coronal images were reconstructed. RADIATION DOSAGE (If Supplied By Facility): CTDIvol = ( 16.62 ) mGy, DLP = ( 1232.39 ) mGycm Individualized dose optimization techniques were used for this CT. COMPARISON: None. LIMITATIONS: None. FINDINGS: LOWER CHEST: Minimal dependent atelectasis in the lung bases. Cardiac pacemaker leads noted. LIVER: Unremarkable. GALLBLADDER/BILE DUCTS: Gallbladder is surgically absent. PANCREAS: Unremarkable. SPLEEN: Unremarkable. ADRENAL GLANDS: Unremarkable. KIDNEYS / URETERS: Unremarkable. BOWEL / MESENTERY: Mildly dilated small bowel in the upper left midabdomen with prominent folds. Diverticula throughout the colon. No bowel obstruction. APPENDIX: Identified and normal. No evidence of acute appendicitis. PERITONEUM: No free air. No free fluid. VESSELS: Abdominal aorta is normal caliber. RETROPERITONEUM: Unremarkable. REPRODUCTIVE ORGANS: Uterus not identified. BLADDER: Unremarkable. ABDOMINAL WALL: Unremarkable. BONES: No acute abnormality. 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 OTHER: None. CT/Abdomen/Pelvis W IV Cont ONLY IMPRESSION: Mildly dilated small bowel prominent folds nonspecific can be seen with enteritis. No bowel obstruction. Colonic diverticulosis without evidence of acute diverticulitis. Electronically Signed: Lacy Pemberton MD at 3:17 EST ,
--- NOTE | 2024-03-27 03:07 | EDS_ITS ---
HPI History of Present Illness Chief Complaint: Shortness of Breath Informant: patient and family Narrative Narrative: Patient is a 78-year-old female who lives at home with her daughter with past medical history of congestive heart failure hypertension hyperlipidemia and need for pacemaker placement. She states she went to bed as she normally does but then awoke with sensation of nausea and shaking chills. She states she did not have any bouts of emesis. She denies any chest pain associated with this. She states it did feel slightly difficult to catch her breath with her symptoms. She denies any known sick contacts but with the symptoms occurring spontaneously and her past medical history EMS was called to bring her in for evaluation [facility] Medical History (Updated 03/27/24 @ 06:[address] Parker Nunez DO) Obesity Former tobacco use Hyperlipidemia HFrEF (heart failure with reduced ejection fraction) Presence of combination internal cardiac defibrillator (ICD) and pacemaker Hypertension Home Medications ?Medication ?Instructions ?Recorded ?Last Taken ?Type aspirin 81 mg tablet,delayed 81 mg PO DAILY 03/27/24 Unknown History release (Adult Aspirin Regimen) furosemide 20 mg tablet 20 mg PO DAILY 03/27/24 Unknown History losartan 25 mg tablet 25 mg PO DAILY 03/27/24 Unknown History metoprolol succinate 25 mg 25 mg PO QHS 03/27/24 Unknown History tablet,extended release 24 hr ondansetron 4 mg disintegrating 4 mg PO TID PRN nausea and 03/27/24 Unknown Rx tablet vomiting #21 tabs Allergy/AdvReac Type Severity Reaction Status Date / Time amoxicillin (From Augmentin) AdvReac PT UNSURE Verified 03/27/24 01:05 OF REACTION clavulanic acid (From AdvReac PT UNSURE Verified 03/27/24 01:05 Augmentin) OF REACTION Surgical History (Updated 03/27/24 @ 02:[address] Stefania Martin MD) S/P implantation of automatic cardioverter/defibrillator (AICD) H/O: hysterectomy History of cholecystectomy Social History (Updated 03/27/24 @ 02:[address] Stefania Martin MD) household members: none Smoking Status: Former smoker how long ago did patient quit smoking: Quit ~ 20 yrs prior, smoked 1 ppd x ~ 30 yrs. alcohol intake: never substance use type: does not use ROS ROS ED Constitutional Constitutional ED: Reports chills and subjective; Denies fever(s) Eyes Eyes: Denies blurry vision or change in vision ENT ENT ED: Denies sore throat Cardiovascular Cardiovascular: Reports racing heartbeat; Denies chest pain or palpitations Respiratory/Chest Respiratory/Chest: Reports dyspnea; Denies cough Gastrointestinal Gastrointestinal: Reports abdominal pain and nausea; Denies constipation, diarrhea or vomiting Genitourinary Genitourinary ED: Denies dysuria or hematuria Musculoskeletal Musculoskeletal: Denies myalgias Integumentary Denies rash Neurologic Neurologic: Denies headache(s) Hematologic/Lymphatic Hematologic/Lymphatic: Denies easy bleeding or easy bruising EXAM Physical Exam Const Vital Signs: 03/27/24 01:04 03/27/24 01:04 03/27/24 01:42 Temperature 97.9 F Temperature Source Oral Pulse Rate 110 H Respiratory Rate 19 H Respiratory Effort Normal Non-Labored Respiratory Depth Normal Respiratory Pattern Normal Blood Pressure 159/115 H Blood Pressure Mean 129 Pulse Ox 92 90 Oxygen Delivery Method Room Air Room Air 03/27/24 01:45 03/27/24 01:52 03/27/24 02:00 Temperature Temperature Source Pulse Rate 119 H 102 H Respiratory Rate 15 15 Respiratory Effort Respiratory Depth Respiratory Pattern Blood Pressure 143/79 H 143/83 H Blood Pressure Mean 100 100 Pulse Ox 89 89 Oxygen Delivery Method 03/27/24 02:15 03/27/24 02:24 03/27/24 02:30 Temperature Temperature Source Pulse Rate 103 H 99 Respiratory Rate 18 16 Respiratory Effort Respiratory Depth Respiratory Pattern Blood Pressure 117/106 H 131/70 H Blood Pressure Mean 112 88 Pulse Ox 90 88 Oxygen Delivery Method 03/27/24 02:45 03/27/24 02:49 03/27/24 03:00 Temperature Temperature Source Pulse Rate 107 H 100 Respiratory Rate 20 H 18 Respiratory Effort Respiratory Depth Respiratory Pattern Blood Pressure 124/77 H 104/84 H Blood Pressure Mean 90 91 Pulse Ox 79 91 Oxygen Delivery Method 03/27/24 03:54 Temperature 97.9 F Temperature Source Pulse Rate 71 Respiratory Rate 18 Respiratory Effort Respiratory Depth Respiratory Pattern Blood Pressure 132/94 H Blood Pressure Mean 106 Pulse Ox 94 Oxygen Delivery Method Positive well nourished and well developed General Appearance ED: well developed; Negative for pallor HEENT Reports dry mucous membranes HEENT Narrative: No tongue or lip swelling no oral lesions no airway edema or compromise No signs of secondary infection in the posterior pharynx Mouth ED: Yes dry mucous membranes Mouth: dry mucous membranes Eyes PERRL and EOMs intact bilaterally General Eye ED: Negative for pale conjunctiva or scleral icterus Neck supple and no JVD Neck Narrative: No nuchal rigidity or meningeal signs Chest Wall palpation of chest normal Chest Narrative: No bony deformity or crepitance noted Resp normal respiratory effort and clear to auscultation bilaterally Resp Narrative: Breath sounds are slight diminished throughout but overall clear to auscultation without nasal flaring retractions tachypnea or accessory muscle use Cardio regular rhythm Rate: tachycardic and other Other Details: Tachycardic rate with regular rhythm Radial and carotid pulses are equal and symmetric GI non-distended and no masses GI Narrative: Soft and nondistended with hyperactive bowel sounds. There is faint pain with palpation in the upper abdomen without voluntary guarding or rigidity or pulsatile mass Auscultation: hyperactive bowel sounds Palpation: soft Extremity normal to inspection Extremity Narrative: No asymmetric edema no pitting edema negative Homans' sign bilaterally Neuro oriented x3, CN's II-XII intact bilaterally and no sensory deficits noted Sensorium / Orientation: alert Motor Exam: strength 5/5 throughout Psych mental status grossly normal Skin no rashes or lesions noted, no wounds and No skin turgor normal Skin Narrative: Skin turgor is slightly increased General Skin Exam: Negative for jaundice or pallor MDM MDM MDM Narrative Medical decision making narrative: Patient arrived to the ER hypertensive and mildly tachycardic but otherwise afebrile. She denied any chest pain or shortness of breath upon arrival and states that there has been no known sick contacts. Differential diagnosis could be atypical pneumonia versus UTI versus intestinal infection such as colitis diverticulitis or intestinal abscess. There is concern this could also be COVID versus influenza versus RSV. Secondary to this basic blood work was obtained as well as chest x-ray and abdominal CT. Patient's white count is slightly elevated at 12.8 and her neutrophil count is also slightly up to 8.8 consistent with an inflammatory or infectious process. Otherwise she does not have signs of acute kidney injury or clinically significant electrolyte abnormality. Liver enzymes are not elevated going against biliary colic or acute cholecystitis and lipase is normal going against pancreatitis. Chest x-ray showed cardiomegaly but no obvious pneumonia or signs of fluid overload. CT of the abdomen pelvis revealed intestinal thickening consistent with enteritis which could correlate with her nausea and abdominal discomfort as well as shaking chills. The patient was able to ambulate with a steady gait and she did not have any hypoxia with this. Therefore at this time as she does not have pneumonia or fluid overload no signs of acute kidney injury or severe electrolyte abnormality and her CT scan does not show any significant intestinal infection such as abscess diverticulitis with perforation or obstruction she is otherwise safe for discharge and can follow-up as an outpatient History & Record Review Discussion w/independent historian: Patient and Family Lab Data Attestation: I reviewed the patient's lab results. Labs: Laboratory Results - last 24 hr 03/27/24 03/27/24 01:15 01:34 WBC 12.8 H RBC 4.74 Hgb 13.7 Hct 43.6 MCV 92.0 MCH 28.9 MCHC 31.4 L RDW Std Deviation 47.4 H RDW Coeff of [place] 14.0 Plt Count 333 MPV 10.5 Immature Gran % (Auto) 1.100 H Neut % (Auto) 68.8 Lymph % (Auto) 24.2 [place] % (Auto) 2.7 Eos % (Auto) 2.3 Baso % (Auto) 0.9 Absolute Neuts (auto) 8.8 H Absolute Lymphs (auto) 3.11 Nucleated RBC % 0 D-Dimer Quant (PE/DVT) 0.57 H* Sodium 139 Potassium 3.8 Chloride 105 Carbon Dioxide 28.0 Anion Gap 6 BUN 33 H Creatinine 1.07 H Estim Creat Clear Calc 46.99 Est GFR (MDRD) Af Amer 64 Est GFR (MDRD) Non-Af 53 L BUN/Creatinine Ratio 30.8 H Glucose 103 Calcium 9.1 Magnesium 2.1 Total Bilirubin 0.40 Direct Bilirubin 0.13 AST 18 ALT 16 Alkaline Phosphatase 78 B-Natriuretic Peptide 268.9 H Total Protein 8.2 Albumin 3.7 Globulin 4.5 H Lipase 51 Urine Color Yellow Urine Clarity Clear Urine pH 6.0 Ur Specific [place] 1.015 Urine Protein 30 H Urine Glucose (UA) Normal Urine Ketones Negative Urine Occult Blood Negative Urine Nitrite Negative Urine Bilirubin Negative Urine Urobilinogen Normal Ur Leukocyte Esterase Negative Urine RBC 0 SEEN Urine WBC 0 SEEN Ur Squamous Epith Cells 0-5 SEEN Urine Bacteria 0 SEEN Urine Mucus 0 SEEN Radiography Diagnostic Testing: Clinical Impression(s) from Imaging Studies Chest X-Ray 03/27/24 02:15 IMPRESSION: No evidence of active intrathoracic disease. Electronically Signed: Lacy Pemberton MD at 2:43 EST , Abdomen/Pelvis CT 03/27/24 02:30 IMPRESSION: Mildly dilated small bowel prominent folds nonspecific can be seen with enteritis. No bowel obstruction. Colonic diverticulosis without evidence of acute diverticulitis. Electronically Signed: Lacy Pemberton MD at 3:17 EST , Chest x-ray as interpreted by the emergency medicine physician reveals cardiomegaly with pacemaker in place and wires intact but no acute infiltrate pneumothorax or pleural effusion Discharge Plan Triage Chief Complaint: Shortness of Breath ED Provider: Parker Nunez Dx/Rx/DC Orders Clinical Impression: Viral syndrome, Shaking chills, Hypertension, Congestive heart failure Instructions: Viral Gastroenteritis, ED Viral Syndrome (Adult) Prescriptions: New ondansetron 4 mg tablet,disintegrating 4 mg PO TID PRN (Reason: nausea and vomiting) Qty: 21 0RF No Action aspirin [Adult Aspirin Regimen] 81 mg tablet,delayed release (DR/EC) 81 mg PO DAILY losartan 25 mg tablet 25 mg PO DAILY furosemide 20 mg tablet 20 mg PO DAILY metoprolol succinate 25 mg tablet extended release 24 hr 25 mg PO QHS Primary Care Provider: Mandeep Houser Referrals: Mandeep Houser DO [Primary Care Provider] - Activity Restrictions/Additional Instructions: Please take the Zofran to help control any further bouts of nausea use Tylenol and/or Motrin for pain control and return to the ER should you have any further concerns or worsening of symptoms Print Language: Danish Disposition Disposition: Home, Self Care Discharge Date/Time: 03/27/24 03:55
== END 2024-03-27 03:55 | disposition home or self-care (01) ==
PROVIDERS: Emergency Provider Emergency Medicine; PCP Student in an Organized Health Care Education/Training Program; Visit Provider Emergency Medicine
DX: B34.9 Viral infection, unspecified (principal); I11.0 Hypertensive heart disease with heart failure; I50.9 Heart failure, unspecified; E78.5 Hyperlipidemia, unspecified; Z79.82 Long term (current) use of aspirin; Z79.899 Other long term (current) drug therapy; Z95.810 Presence of automatic (implantable) cardiac defibrillator; Z87.891 Personal history of nicotine dependence
CPT/HCPCS: 71046; 74177; 80048; 80076; 81001; 83690; 83735; 83880; 85025; 85379; 87631; 93005; 96361; 96374; 96376; 99285; J7040; Q9967; A4216; J2405

== ENCOUNTER 2024-11-13 17:54 | Emergency (ER) | payer MEDICARE, OTHER, SELFPAY ==
[2024-11-13 17:55] VITALS: BP 143/104; PULSE 71; RESP 22; TEMP 36.3; O2SAT 96; BMI 35.3
--- NOTE | 2024-11-13 18:45 | RAD_ITS ---
PROCEDURE: CHEST 1 VIEW (PORTABLE) 11/13/2024 REASON FOR EXAM: FALL/INJURY CHEST TECHNIQUE: Frontal view of the chest. COMPARISON: Chest radiograph 03/27/2024. FINDINGS: Hardware: Left chest wall pacemaker in place. Heart: Stable mild cardiomegaly. Lungs: Low lung volumes, [id number]. Visualization of the left lung is limited due to overlying pacemaker. No large consolidation, pleural effusion or pneumothorax. Bones: Degenerative changes are identified within the thoracic spine. RAD/Chest 1 View (Portable) IMPRESSION: Cardiomegaly. No acute findings. Reading Location: [id number]
--- NOTE | 2024-11-13 18:45 | EKG12_ITS ---
Test Reason : DYSRHYTHMIA Blood Pressure : */* mmHG Vent. Rate : 67 BPM Atrial Rate : 67 BPM P-R Int : 120 ms QRS Dur : 114 ms QT Int : 428 ms P-R-T Axes : 10 -75 19 degrees QTcB Int : 452 ms Critical Test Result: STEMI Normal sinus rhythm Left axis deviation Inferior-posterior infarct , possibly acute Anterolateral infarct , age undetermined Abnormal ECG Confirmed by CATRACHITO BRYAN, FORTINO ([id number]), technical writer and editor SINCERE HINSON ([id number]) on 11/17/2024 9:56:26 AM Referred By: Confirmed By: FORTINO WINSTON MD
--- NOTE | 2024-11-13 18:46 | RAD_ITS ---
PROCEDURE: HAND MIN 3 VIEWS 11/13/2024 REASON FOR EXAM: PAIN/INJURY TECHNIQUE: HAND MIN 3 VIEWS, right COMPARISON: None. FINDINGS: Bones: No acute fracture. No aggressive osseous lesions. Joints: Normal alignment. Moderate degenerative changes. Soft tissues: Soft tissues are unremarkable. RAD/Hand Min 3 Views IMPRESSION: DEGENERATIVE OSTEOARTHROSIS. NO ACUTE FINDINGS. Reading Location: [id number]
--- NOTE | 2024-11-13 18:46 | ED.VIS.FALL ---
HPI HPI - Fall History of Present Illness Chief Complaint: Fall Informant: patient and family (x2) Narrative Narrative: Patient had an accidental trip and fall. She states she went out to check the mail, and caught an edge on the sidewalk, causing her to tumble hitting the right lateral face/head, her ribs on the right, but she also has chest wall pain on the left that progresses to the posterior aspect around her shoulder blade. She also has some mild pain in her right ring and little fingers, having some trouble moving them, stating that they feel stiff, and family states that she bumped her left knee. The patient states her left knee is not hurting anymore. She denies any abdominal pain. This just happened prior to coming here, they called EMS immediately, EMS helped her onto her feet she was able to stand and brought her right to the hospital. She denies having headache, loss of consciousness, she is on no anticoagulants but takes a baby aspirin daily. [facility] Medical History Obesity Former tobacco use Hyperlipidemia HFrEF (heart failure with reduced ejection fraction) Presence of combination internal cardiac defibrillator (ICD) and pacemaker Hypertension Home Medications ?Medication ?Instructions ?Recorded ?Last Taken ?Type aspirin 81 mg tablet,delayed 81 mg PO DAILY 03/27/24 Unknown History release (Adult Aspirin Regimen) furosemide 20 mg tablet 20 mg PO DAILY 03/27/24 Unknown History losartan 25 mg tablet 25 mg PO DAILY 03/27/24 Unknown History metoprolol succinate 25 mg 25 mg PO QHS 03/27/24 Unknown History tablet,extended release 24 hr ondansetron 8 mg disintegrating 8 mg PO Q8H PRN nausea and 11/13/24 Unknown Rx tablet vomiting #12 tabs oxycodone-acetaminophen 5 mg-325 1 tab PO Q6H PRN PRN Pain 3 days 11/13/24 Unknown Rx mg tablet #12 TABLETS simethicone 80 mg chewable tablet 160 mg PO PRN PRN abdominal 11/13/24 Unknown History distention Allergy/AdvReac Type Severity Reaction Status Date / Time amoxicillin (From Augmentin) AdvReac PT UNSURE Verified 11/13/24 17:57 OF REACTION clavulanic acid (From AdvReac PT UNSURE Verified 11/13/24 17:57 Augmentin) OF REACTION Surgical History S/P implantation of automatic cardioverter/defibrillator (AICD) H/O: hysterectomy History of cholecystectomy Social History household members: none Smoking Status: Former smoker how long ago did patient quit smoking: Quit ~ 20 yrs prior, smoked 1 ppd x ~ 30 yrs. alcohol intake: never substance use type: does not use ROS ROS ED Constitutional Constitutional ED: Denies chills or fever(s) Eyes Eyes: Denies change in vision or diplopia ENT ENT ED: Reports other Details: right facial pain ; Denies ear pain, epistaxis, facial pain or rhinorrhea Cardiovascular Cardiovascular: Reports chest pain; Denies palpitations Respiratory/Chest Respiratory/Chest: Reports dyspnea; Denies cough Gastrointestinal Gastrointestinal: Denies abdominal pain, diarrhea, melena, nausea or vomiting Genitourinary Genitourinary ED: Denies dysuria or hematuria Musculoskeletal Musculoskeletal: Reports back pain and extremity pain; Denies neck pain Integumentary Denies abscess, Abrasions, laceration or rash Neurologic Neurologic: Reports other Details: briefly dazed per family ; Denies confusion, headache(s), paresthesias or weakness EXAM Physical Exam Const Vital Signs: 11/13/24 17:55 11/13/24 17:58 11/13/24 19:54 Temperature 97.3 F L Temperature Source Temporal Pulse Rate 71 Respiratory Rate 22 H 17 Respiratory Effort Short of Breath Blood Pressure 143/104 H 146/72 H Blood Pressure Mean 117 96 Pulse Ox 96 94 Oxygen Delivery Method Room Air Room Air 11/13/24 20:33 11/13/24 22:00 Temperature Temperature Source Pulse Rate 55 L Respiratory Rate Respiratory Effort Blood Pressure 106/79 101/63 Blood Pressure Mean 88 75 Pulse Ox 95 95 Oxygen Delivery Method Room Air Positive well nourished and well developed General Appearance ED: well developed and NAD HEENT Reports TM's clear and nasal mucous membranes and turbinates normal HEENT Narrative: No Pelaez sign, no raccoon eyes, no CSF otorhinorrhea, no hemotympanum. No objective evidence of facial trauma no reproducible tenderness. No intraoral lesions/injury. No trismus. atraumatic Face and Sinus: Negative for facial tenderness Tympanic Membrane ED: Yes TM's clear Eyes PERRL and EOMs intact bilaterally Visual Acuity: other Other Details: no entrapment or pain with extraocular movements Neck full ROM and supple General: Negative for tenderness Chest Wall inspection of chest normal Chest Narrative: Multiple areas of tenderness in the rib cage. Right lower anterior, left mid posterior and lateral and anterior lower. Splinting with deep inspiration. Breath sounds are equal bilaterally. No flail segments. No subcutaneous emphysema palpable. Chest: symmetrical chest wall rise and tenderness; Negative for crepitus Resp normal respiratory effort and clear to auscultation bilaterally Percussion: other equal BS bilat Cardio no murmurs Rate: regular rate Rhythm: regular rhythm GI normal to inspection, nondistended, normoactive bowel sounds, soft to palpation and non-tender Back/Spine Back/Spine Narrative: Limited range of motion due to pain in her upper back, but no midline spinal tenderness throughout. Cervical Spine: Negative for cervical spine tenderness Thoracic Spine / Upper Back: Negative for thoracic spinal tenderness Lumbar Spine / Lower Back: Negative for lumbar spinal tenderness Extremity normal to inspection and full ROM Extremity Narrative: Mild tenderness at the right ring and little fingers, with small associated contusions. No deformities. With supination patient is able to bend fingers in, FDS FDP intact all fingers, no rotational deformities or otherwise. No nail injuries or subungual hematomas. Otherwise full range of motion with no pain or bony tenderness including the left knee, which has full range of motion, no bony tenderness or evidence of trauma, no effusion, extensor mechanism intact and stable ligaments, and her left shoulder with internal/external rotation and no tenderness. With abduction of the left shoulder she does have some pain in the rib cage limiting her somewhat, but not in the shoulder or the clavicles or acromioclavicular joints which are both nontender. General Extremety ED: Yes tenderness Neuro oriented x3, CN's II-XII intact bilaterally, moves all extremities, no focal motor deficits and no sensory deficits noted Ja Coma Scale: document GCS findings Spontaneous Obeys Commands Oriented 15 Sensorium / Orientation: awake and alert Psych mental status grossly normal and thought process normal Skin no wounds Lesions: no lesions Rashes: no rashes MDM MDM MDM Narrative Medical decision making narrative: Initially performed as stat portable chest x-ray, which on my interpretation shows no pneumothorax or significantly widened mediastinum, or obvious displaced rib fracture. However she is tender and having pain so many areas of the rib cage, I thought more appropriate to perform a CT to evaluate more thoroughly including her sternum which is painful and mildly tender. Also due to this and the possibility of a sternal fracture which will be seen on CT if present, and possibility of myocardial contusion, EKG was obtained, my interpretation shows right bundle branch block and some associated T wave inversions but no acute injury pattern and no ectopy. Also obtain three-view x-ray series of the right hand, which my interpretation shows no fractures radiology in agreement on both of these. She was sent for CT of the head which on my interpretation shows no acute intracranial injury or orbital injury, as well as CT of the chest. My interpretation is CT of the chest shows no pulmonary, mediastinal, or rib injury. I see no pneumothorax on my interpretation. Radiology in agreement, it is negative for any acute injury. I discussed with the patient and family, it certainly is possible to have a nondisplaced rib fracture and not be seen on these images, the treatment would be the same but she would just have pain for longer. I will prescribe her some analgesics and give her an incentive spirometer with instructions for use, and recommend outpatient follow-up if she still having issues. She is able to ambulate here in the ED and she has a walker at home to use as needed. With regards to the left shoulder, when she abducts she has pain in the periscapular area of the back, but she does not have shoulder joint pain. We did do a CT of all this area there is no scapular dissociation or fracture, and I do not think she is having any shoulder joint pain I think it is related to the chest wall injury/pain. Lab Data Attestation: I reviewed the patient's lab results. Labs: Laboratory Results - last 24 hr 11/13/24 11/13/24 11/13/24 19:10 19:10 19:22 WBC Cancelled Corrected WBC Cancelled RBC Cancelled Hgb Cancelled Hct Cancelled MCV Cancelled MCH Cancelled MCHC Cancelled RDW Std Deviation Cancelled RDW Coeff of Julian Cancelled Plt Count Cancelled MPV Cancelled Immature Gran % (Auto) Cancelled Neut % (Auto) Cancelled Lymph % (Auto) Cancelled [place] % (Auto) Cancelled Eos % (Auto) Cancelled Baso % (Auto) Cancelled Absolute Neuts (auto) Cancelled Absolute Lymphs (auto) Cancelled Total Counted Cancelled Neutrophils % (Manual) Cancelled Band Neutrophils % Cancelled Lymphocytes % (Manual) Cancelled Monocytes % (Manual) Cancelled Eosinophils % (Manual) Cancelled Basophils % (Manual) Cancelled Metamyelocytes % Cancelled Myelocytes % Cancelled Promyelocytes % Cancelled Blast Cells % Cancelled Plasma Cell % (Manual) Cancelled Other Cells % Cancelled Nucleated RBC % Cancelled Nucleated RBCs/100 WBC Cancelled Differential Comment Cancelled Diff Path Review Cancelled Hypersegmented Neuts Cancelled Atypical Lymphocytes Cancelled Reactive Lymphocytes Cancelled Smudge Cells Cancelled Toxic Granulation Cancelled Toxic Vacuolation Cancelled Dohle Bodies Cancelled Peter Rods Cancelled Platelet Estimate Cancelled Plt Morphology Comment Cancelled RBC Morphology Cancelled Cancelled Polychromasia Cancelled Hypochromasia Cancelled Basophilic Stippling Cancelled Anisocytosis Cancelled Microcytosis Cancelled Macrocytosis Cancelled Spherocytes Cancelled Sickle Cells Cancelled Target Cells Cancelled Tear Drop Cells Cancelled Ovalocytes Cancelled Stomatocytes Cancelled [place] Bodies Cancelled [place] Cells Cancelled Bite Cells Cancelled Crenated Cell Cancelled Acanthocytes (Spur) Cancelled Rouleaux Cancelled Schistocytes Cancelled Sodium 139 Potassium 4.3 Chloride 107 Carbon Dioxide 20.2 L Anion Gap 12 BUN 22 H Creatinine 0.96 Estim Creat Clear Calc 51.57 Est GFR (MDRD) Non-Af 61 BUN/Creatinine Ratio 22.8 H Glucose 122 H Calcium 9.3 Urine Color Yellow Urine Clarity Clear Urine pH 6.5 Ur Specific [place] 1.010 Urine Protein 15 H Urine Glucose (UA) Normal Urine Ketones Negative Urine Occult Blood Negative Urine Nitrite Negative Urine Bilirubin Negative Urine Urobilinogen Normal Ur Leukocyte Esterase Negative Urine RBC 0 SEEN Urine WBC 0-5 SEEN Ur Squamous Epith Cells 5-10 SEEN Urine Bacteria RARE Urine Mucus 0 SEEN 11/13/24 20:07 WBC 9.6 Corrected WBC RBC 4.16 L Hgb 12.1 Hct 37.5 MCV 90.1 MCH 29.1 MCHC 32.3 RDW Std Deviation 45.6 H RDW Coeff of Julian 13.8 Plt Count 295 MPV 9.7 Immature Gran % (Auto) 0.700 Neut % (Auto) 61.4 Lymph % (Auto) 26.8 [place] % (Auto) 8.8 Eos % (Auto) 1.3 Baso % (Auto) 1.0 Absolute Neuts (auto) 5.9 Absolute Lymphs (auto) 2.58 Total Counted Neutrophils % (Manual) Band Neutrophils % Lymphocytes % (Manual) Monocytes % (Manual) Eosinophils % (Manual) Basophils % (Manual) Metamyelocytes % Myelocytes % Promyelocytes % Blast Cells % Plasma Cell % (Manual) Other Cells % Nucleated RBC % 0 Nucleated RBCs/100 WBC Differential Comment Diff Path Review Hypersegmented Neuts Atypical Lymphocytes Reactive Lymphocytes Smudge Cells Toxic Granulation Toxic Vacuolation Dohle Bodies Peter Rods Platelet Estimate Plt Morphology Comment RBC Morphology Polychromasia Hypochromasia Basophilic Stippling Anisocytosis Microcytosis Macrocytosis Spherocytes Sickle Cells Target Cells Tear Drop Cells Ovalocytes Stomatocytes [place] Bodies [place] Cells Bite Cells Crenated Cell Acanthocytes (Spur) Rouleaux Schistocytes Sodium Potassium Chloride Carbon Dioxide Anion Gap BUN Creatinine Estim Creat Clear Calc Est GFR (MDRD) Non-Af BUN/Creatinine Ratio Glucose Calcium Urine Color Urine Clarity Urine pH Ur Specific [place] Urine Protein Urine Glucose (UA) Urine Ketones Urine Occult Blood Urine Nitrite Urine Bilirubin Urine Urobilinogen Ur Leukocyte Esterase Urine RBC Urine WBC Ur Squamous Epith Cells Urine Bacteria Urine Mucus Radiography Diagnostic Testing: Clinical Impression(s) from Imaging Studies Chest X-Ray 11/13/24 18:45 IMPRESSION: Cardiomegaly. No acute findings. Reading Location: [facility] Hand X-Ray 11/13/24 18:46 IMPRESSION: DEGENERATIVE OSTEOARTHROSIS. NO ACUTE FINDINGS. Reading Location: [facility] Brain CT 11/13/24 19:57 IMPRESSION: No acute intracranial finding. Reading Location: [facility] Chest CT 11/13/24 19:57 IMPRESSION: Visualization is limited by motion artifact and streak artifact from left chest wall pacemaker. No acute finding on noncontrast examination. Reading Location: [facility] Rhythm Strip Rhythm Strip: Sinus Rhythm Rate: 67 Ectopy: None EKG Initial EKG: Attestation: I personally reviewed and interpreted this EKG as follows: Interpretation: Sinus Rhythm, No Acute Injury Pattern, RBBB and LAFB Discharge Plan Triage Chief Complaint: Fall ED Provider: Jose Goldberg Dx/Rx/DC Orders Clinical Impression: Chest wall contusion, Contusion of back wall of thorax, Contusion of hand, right, Contusion of face, Fall from slip, trip, or stumble Instructions: ED Chest Wall Contusion Prescriptions: New oxycodone-acetaminophen 5-325 mg tablet 1 tab PO Q6H PRN PRN (Reason: Pain) 3 Days Qty: 12 0RF ondansetron 8 mg tablet,disintegrating 8 mg PO Q8H PRN (Reason: nausea and vomiting) Qty: 12 0RF No Action aspirin [Adult Aspirin Regimen] 81 mg tablet,delayed release (DR/EC) 81 mg PO DAILY losartan 25 mg tablet 25 mg PO DAILY furosemide 20 mg tablet 20 mg PO DAILY metoprolol succinate 25 mg tablet extended release 24 hr 25 mg PO QHS simethicone 80 mg tablet,chewable 160 mg PO PRN PRN (Reason: abdominal distention) Primary Care Provider: Mandeep Houser Referrals: Mandeep Houser DO [Primary Care Provider] - 1 Week if not improving Activity Restrictions/Additional Instructions: Use incentive spirometer 5 times in a row, at least 3 times a day at least for the first half of the week or so, to encourage you to take deep breaths which will help prevent you from developing pneumonia from having pain with breathing. Consider taking a stool softener along with the narcotic pain medication, as it can cause constipation. MiraLAX 1 capful daily dissolved in 8 ounces of any fluid is an option for this. Print Language: Syriac Disposition Disposition: Home, Self Care
[2024-11-13 19:32] LABS: Mucous, Urine 0 SEEN /hpf (<or=2+); Red Blood Cells-Urine 0 SEEN /hpf (0-5)
[2024-11-13 19:44] LABS: Color, Urine Yellow (Yellow); Glucose, Dipstick Normal (Normal); Ketone-Dipstick Negative (Negative); Leukocyte Esterase-Dipstick Negative /ul (Negative); Nitrite-Dipstick Negative (Negative); Occult Blood-Urine Negative /ul (Negative); Protein-Dipstick 15 mg/dl (Negative); Specific Gravity, Urine 1.010 (1.002-1.030); Urine Bilirubin Dipstick Negative (Negative)
[2024-11-13 19:54] VITALS: BP 146/72; RESP 17; O2SAT 94
--- NOTE | 2024-11-13 19:57 | CT_ITS ---
EXAM: BRAIN/HEAD WITHOUT CONTRAST CLINICAL HISTORY: 79 y/o F with HEAD TRAUMA/FALL. COMPARISON: None. TECHNIQUE: Routine CT imaging of the head without IV contrast. Additional multiplanar reformats were obtained. Dose reduction techniques were used including intermediate exposure control (AEC),iterative reconstruction technique, and/or mA and/or KV dose adjustments based on patient's size. FINDINGS: The ventricles, sulci and cisterns are normal for patient age. There is no evidence of acute intracranial hemorrhage or herniation. There is no midline shift, mass effect, or extra-axial collection. Moderate patchy supratentorial white matter hypodensities. The robles and white matter differentiation is otherwise maintained. The orbits, visualized paranasal sinuses and mastoids are unremarkable. No acute calvarial fracture or scalp hematoma. CT/Brain/Head without Contrast IMPRESSION: No acute intracranial finding. Reading Location: [id number]
--- NOTE | 2024-11-13 19:57 | CT_ITS ---
PROCEDURE: CHEST WITHOUT CONTRAST 11/13/2024 REASON FOR EXAM: FALL, CP/SOB, MULTIPLE AREAS OF CHEST WALL INJURY TECHNIQUE: Chest CT without contrast. Coronal and Sagittal reconstruction series were provided. One or more dose reduction techniques were used (e.g., Automated exposure control, adjustment of the mA and/or kV according to patient size, use of iterative reconstruction technique. RADIATION DOSE SUMMARY: DLP: 1400 mGycm COMPARISON: Same day chest radiograph. FINDINGS: Visualization is limited by motion artifact and streak artifact from left chest wall pacemaker. Hardware: Pacemaker. Lymph nodes: Visualization is limited by noncontrast imaging. No large lymphadenopathy. Heart and Vasculature: The heart is normal in size without pericardial effusion. The great vessels are grossly normal caliber. At least moderate coronary artery and thoracic aortic calcifications. Lungs and Airways: Visualization is limited by motion artifact. The central airways are patent. Bibasilar atelectasis/scarring. No large pulmonary mass, pleural effusion or pneumothorax. Upper Abdomen: Diverticulosis. Calcific plaque of the abdominal aorta. Bones: Thoracic spondylosis. No obvious acute fracture. CT/Chest without Contrast IMPRESSION: Visualization is limited by motion artifact and streak artifact from left chest wall pacemaker. No acute finding on noncontrast examination. Reading Location: [id number]
[2024-11-13 20:14] LABS: Hematocrit 37.5 % (37-47); Hemoglobin 12.1 g/dL (12.0-15.0); Immature Granulocytes Count 0.070 X10^3/uL (0.0-0.0); Mean Corp Hgb Conc 32.3 g/dL (32-36); Mean Corpuscular Volume 90.1 fL (81-99); Mean Platelet Vol. 9.7 fl (6.2-12.0); NRBC Flagged by Analyzer 0 % (0-5); Platelet Count 295 K/mm3 (150-450); RBC Distribution Width CV 13.8 % (11.6-14.6); RBC Distribution Width SD 45.6 fl (35.1-43.9); Red Blood Count 4.16 M/mm3 (4.2-5.4); White Blood Count 9.6 K/mm3 (4.4-11.0)
[2024-11-13 20:33] VITALS: BP 106/79; PULSE 55; O2SAT 95
[2024-11-13 20:44] LABS: Squamous Epithelial Cells - UA 5-10 SEEN /hpf (5-10)
[2024-11-13 21:07] LABS: Anion Gap 12 (5-15); BUN 22 mg/dL (4-19); BUN/Creat Ratio 22.8 RATIO (10-20); Calcium,Total 9.3 mg/dL (7.6-11.0); Carbon Dioxide 20.2 mmol/L (21.0-32.0); Chloride 107 mmol/L (98-108); Estimated Creatinine Clearance 51.57 ml/min (50-250); Glucose 122 mg/dL (70-99); Potassium 4.3 mmol/L (3.3-5.1)
[2024-11-13 22:00] VITALS: BP 101/63; O2SAT 95
--- NOTE | 2024-11-13 23:08 | ED.RN ---
pt. given extensive education on incentive spirometer, usage of pain medication and stool softeners and instructions on when to return to the ER.
[2024-11-13 23:09] VITALS: BP 101/63; PULSE 65; RESP 17; TEMP 36.7; O2SAT 100
== END 2024-11-13 23:10 | disposition home or self-care (01) ==
PROVIDERS: Emergency Provider Emergency Medicine; PCP Student in an Organized Health Care Education/Training Program; Visit Provider Emergency Medicine
DX: S20.229A Contusion of unspecified back wall of thorax, initial encounter (principal); I50.22 Chronic systolic (congestive) heart failure; I11.0 Hypertensive heart disease with heart failure; S60.221A Contusion of right hand, initial encounter; S00.83XA Contusion of other part of head, initial encounter; Z79.82 Long term (current) use of aspirin; Z79.899 Other long term (current) drug therapy; Z87.891 Personal history of nicotine dependence; W19.XXXA Unspecified fall, initial encounter; Z45.02 Encounter for adjustment and management of automatic implantable cardiac defibrillator
CPT/HCPCS: 99284; 70450; 71045; 71250; 73130; 80048; 81001; 85025; 93005; A4216; J2405

== ENCOUNTER 2024-11-14 00:47 | Inpatient (IN) | payer MEDICARE, OTHER, SELFPAY ==
[2024-11-14] VITALS (11 sets, daily range): BP systolic 99–133; BP diastolic 44–90; PULSE 48–80; RESP 14–20; TEMP 36.2–36.6; O2SAT 86–96; BMI 34.7; BMI 33.3
[2024-11-14 01:06] LABS: Hematocrit 40.3 % (37-47); Hemoglobin 12.9 g/dL (12.0-15.0); Mean Corp Hgb Conc 32.0 g/dL (32-36); Mean Corpuscular Volume 91.0 fL (81-99); Mean Platelet Vol. 9.8 fl (6.2-12.0); Platelet Count 305 K/mm3 (150-450); RBC Distribution Width CV 14.1 % (11.6-14.6); RBC Distribution Width SD 47.1 fl (35.1-43.9); Red Blood Count 4.43 M/mm3 (4.2-5.4); White Blood Count 10.7 K/mm3 (4.4-11.0)
--- OUTSIDE RECORDS SUMMARY | 2024-11-14 01:18 | XMS RPT_ITS | CCD ---
Author Organization [facility] Care Team Providers Care Insurance Salesperson Name Role Phone Rafael Frankolphus Unavailable Unavailab le Raux, Rafael Louis Unavailable Unavailab le Raux, Rafael Louis Unavailable Unavailab le Raux, Rafael Louis Unavailable Unavailab le Raux, Rafael Louis Unavailable Unavailab le Raux, Rafael Louis Unavailable Unavailab le Raux III, Rafael Unavailable Unavailable Raux, Rafael A Unavailable Unavailable Homafar, Soghra Unavailable Unavailable Mane Solis Unavailable Unavailable Galen Heaton MD Unavailable Maycol Valladares MD Primary Care Provider Mandeep Houser DO Primary Care Provider Maycol Valladares MD Primary Care Provider Galen Heaton MD Unavailable Mandeep Houser DO Primary Care Provider Mandeep Houser DO Primary Care Provider Galen Heaton MD Unavailable Mandeep Houser DO Primary Care Provider Galen Heaton MD Unavailable Zac III, Rafael Myers Primary Care Provider Fitz Mcqueen RN Unavailable MANDEEP HOUSER Primary Care Unavailable DEANN BRYAN, PILI Consulting Unavailable LOUISA CAMP Admitting Unavailable ANGELICA SILVA Attending Unavailable REMINGTON CAI Referring Unavailabl e Mandeep Houser DO Primary Care Provider Timothy TONGN.DIRECTOR OF DONOR RELATIONS, Thuy Serrato Unavailable [phone] FLACA GREENFIELD Attending Unavailable HOUSER, MANDEEP L Primary Care Unavailable HOUSER, MANDEEP L Referring Unavailable HOUSER, MANDEEP L Primary Care Unavailable REMINGTON CAI Admitting Unavailable REMINGTON CAI Attending Unavailable ÁLVARO LOBO Consulting Unavailable HOUSER, MANDEEP L Primary Care Unavailable ADDI BRICE Admitting Unavailable BENTLEY NOLASCO Consulting Unavailable ABBYMANREMINGTON Attending Unavailable HOUSER, MANDEEP L Primary Care Unavailable Provider Uvaldo BRYAN Unavailable Unavailable Maycol Valladares MD Primary Care Provider [phone] Azam VICE PRESIDENT OF OPERATIONS.DIRECTOR OF DONOR RELATIONS, Rupali Adelina Unavailable Yasir VICE PRESIDENT OF OPERATIONS.DIRECTOR OF DONOR RELATIONS, Alejandrina Unavailable ZAINAB, CH Referring Unavailable Houser, Mandeep Primary Care Unavailable ZAINAB, CH Attending Unavailable ZAINAB, CH Referring Unavailable Houser, Mandeep Primary Care Unavailable ZAINAB, CH Attending Unavailable ZAINAB, CH Referring Unavailable Houser, Mandeep Primary Care Unavailable ZAINAB, CH Attending Unavailable ZAINAB, CH Referring Unavailable ZAINAB, CH Attending Unavailable Houser, Mandeep Primary Care Unavailable ZAINAB, CH Attending Unavailable ZAINAB, CH Referring Unavailable Houser, Mandeep Primary Care Unavailable Houser, Mandeep Primary Care Unavailable Parker Nunez Attending Unavailable ZAINAB, CH Referring Unavailable Houser, Mandeep Primary Care Unavailable ZAINAB, CH Attending Unavailable Marely VICE PRESIDENT OF OPERATIONS.DIRECTOR OF DONOR RELATIONS, Brittani Ji Unavailable [phone] HOUSER, MANDEEP Primary Care Unavailable KAKA, YAQUTA Referring Unavailable KAKA, YAQUTA Attending Unavailable HOUSER, MANDEEP Primary Care Unavailable HOUSER, MANDEEP Attending Unavailable HOUSER, MANDEEP Primary Care Unavailable HOUSER, MANDEEP Attending Unavailable HOUSER, MANDEEP Primary Care Unavailable KAKA, YAQUTA Referring Unavailable HOUSER, MANDEEP Primary Care Unavailable HOUSER, MANDEEP Attending Unavailable HOUSER, MANDEEP Primary Care Unavailable HOUSER, MANDEEP Primary Care Unavailable HOUSER, MANDEEP Referring Unavailable HOUSER, MANDEEP Primary Care Unavailable HOUSER, MANDEEP Primary Care Unavailable HOUSER, MANDEEP Attending Unavailable HOUSER, MANDEEP Primary Care Unavailable HOUSER, MANDEEP Attending Unavailable HOUSER, MANDEEP Primary Care Unavailable HOUSER, MANDEEP Attending Unavailable HOUSER, MANDEEP Primary Care Unavailable HOUSER, MANDEEP Referring Unavailable HOUSER, MANDEEP Primary Care Unavailable HOUSER, MANDEEP Referring Unavailable HOUSER, MANDEEP Primary Care Unavailable HOUSER, MANDEEP Attending Unavailable HOUSER, MANDEEP Primary Care Unavailable ANGEL CASTRO Referring Unavailabl e HOUSER, MANDEEP Primary Care Unavailable HOUSER, MANDEEP Attending Unavailable HOUSER, MANDEEP Primary Care Unavailable HOUSER, MANDEEP Attending Unavailable HOUSER, MANDEEP Primary Care Unavailable HOUSER, MANDEEP Attending Unavailable HOUSER, MANDEEP Primary Care Unavailable HOUSER, MANDEEP Attending Unavailable HOUSER, MANDEEP Primary Care Unavailable HOUSER, MANDEEP Attending Unavailable HOUSER, MANDEEP Primary Care Unavailable HOUSER, MANDEEP Referring Unavailable HOUSER, MANDEEP Primary Care Unavailable HOUSER, MANDEEP Attending Unavailable HOUSER, MANDEEP Primary Care Unavailable HOUSRE, MANDEEP Attending Unavailable HOUSER, MANDEEP Primary Care Unavailable HOUSER, MANDEEP Attending Unavailable HOUSER, MANDEEP Primary Care Unavailable ANGEL CASTRO Attending Unavailabl e HOUSER, MANDEEP Primary Care Unavailable HOUSER, MANDEEP Attending Unavailable HOUSER, MANDEEP Primary Care Unavailable HOUSER, MANDEEP Primary Care Unavailable KAKA, YAQUTA Attending Unavailable HOUSER, MANDEEP Primary Care Unavailable HOUSER, MANDEEP Attending Unavailable HOUSER, MANDEEP Primary Care Unavailable RALEIGH HILLARA Attending Unavailable HouserDr. Mandeep padilla DO Primary Care Provider Yusuf BRYAN, Dr. Garcia Emergency Provider Allergies Allergy Classification Reported Allergen(s) Allergy Type Date of Onset Reaction(s) Facility amLODIPine (2 sources) amLODIPine Drug Allergy 0 Intolerance [facility] Amoxicillin / Clavulanate (2 sources) Amoxicillin / Clavulanate Drug Allergy 3 GI Upset [facility] HMG-CoA Reductase Inhibitors (statins) (2 sources) atorvastatin Drug Allergy 0 Myalgia [facility] Opioid Agonists (2 sources) Codeine Drug Allergy 3 Mental Status Change [facility] Work Phone: Sulfonamides (antibiotic) (2 sources) Sulfonamides (Antibiotic) Drug Allergy 0 Intolerance [facility] (20 sources) amLODIPine; Translations: [AMLODIPINE] Drug Allergy 0 Other: See Comments, Intolerance [facility] (2 sources) Amoxicillin / Clavulanate Drug Allergy [facility] Work Phone: (20 sources) Codeine; Translations: [CODEINE] Drug Allergy 3 Dizziness, Mental Status Change [facility] Work Phone: (2 sources) Sulfonamides (Antibiotic) Allergy to drug (finding) Headache [facility] Work Phone: (20 sources) Amoxicillin / Clavulanate; Translations: [AMOXICILLIN-POT CLAVULANATE] Drug Allergy 3 GI Upset [facility] (20 sources) Angiotensin-conve rting enzyme inhibitor agent; Translations: [EMILIO INHIBITORS] Drug Allergy 0 Other: See Comments [facility] (20 sources) atorvastatin; Translations: [ATORVASTATIN] Drug Allergy 0 Myalgia [facility] (20 sources) beta-Blocking agent; Translations: [BETA-BLOCKERS (BETA-ADRENERGIC BLOCKING AGTS)] Drug Allergy 0 Other: See Comments [facility] (20 sources) Sulfonamides (Antibiotic); Translations: [SULFA (SULFONAMIDE ANTIBIOTICS)] Drug Allergy 0 Other: See Comments, Intolerance [facility] (20 sources) Angiotensin-conve rting enzyme inhibitor agent Drug Allergy 0 Other: See Comments, Intolerance [facility] (20 sources) beta-Blocking agent Drug Allergy 0 Other: See Comments, Intolerance [facility] (20 sources) sacubitril / valsartan; Translations: [SACUBITRIL-VALSA RTAN] Drug Allergy 4 Intolerance [facility] (1 source) Amoxicillin Drug Allergy 4 [facility] (1 source) Clavulanate Drug Allergy 4 [facility] (1 source) Amoxicillin Drug Allergy 5 PT UNSURE OF REACTION [facility] (1 source) Clavulanate Drug Allergy 5 PT UNSURE OF REACTION [facility] Medications Current Medications Medication Drug Class(es) Dates Sig (Normalized) Sig (Original) acetaminophen 500 mg oral tablet (20 sources) Start: 07-13-2023 take 2 tablets by mouth every eight hours as needed acetaminophen (TYLENOL) 500 mg tablet Take 2 tablets by mouth every 8 hours as needed for pain. 07/13/2023 Active End: 05-26-2020 take 2 tablets by mouth every six hours as needed acetaminophen (TYLENOL) 325 mg tablet Take 650 mg by mouth every 6 hours as needed. 0 05/26/2020 Discontinued Comment on above: Take 650 mg by mouth every 6 hours as needed. [facility] every 8 hours as needed for pain. acetaminophen 325 mg / HYDROcodone bitartrate 5 mg oral tablet (1 source) Opioid Agonist Start: 11-07-19 End: 11-14-19 take 1 tablet by mouth every eight hours as needed for pain HYDROcodone-acetamin ophen (NORCO) 5-325 mg per tablet Indications: Acute midline low back pain without sciatica Take 1 tablet by mouth every 8 hours as needed for pain for up to 7 days. 21 tablet 0 11/07/2023 11/14/2023 Active acetaminophen 325 mg / oxyCODONE hydrochloride 5 mg oral tablet (1 source) Opioid Agonist Start: 11-14-19 25 take 1 tablet by mouth every six hours as needed for pain Oxycodone-Acetaminop hen 5-325 mg tablet Active 1 {tbl} PO EVERY 6 HOURS NEEDED as needed for Pain 12 3 0 November 13, 2024 Contusion of chest wall Contusion of unspecified front wall of thorax, initial encounter aluminum hydroxide 40 mg/ml / magnesium hydroxide 40 mg/ml / simethicone 4 mg/ml oral suspension (20 sources) Start: 11-18-19 take 30 mL by mouth every six hours as needed aluminum-magnesium hydroxide-simethicon e 200-200-20 mg/5 mL suspension Take 30 mL by mouth every 6 hours as needed. 354 mL 11/18/2023 Active aspirin 81 mg delayed release oral tablet (20 sources) Platelet Aggregation Inhibitor, Nonsteroidal Anti-inflammatory Drug Start: 04-21-20 take 1 tablet by mouth once daily Aspirin (Adult Aspirin Regimen) 81 mg tablet,delayed release (DR/EC) Active 81 mg PO DAILY March 27, 2024 1:00am Comment on above: Take 1 tablet by jc once daily. azithromycin 250 mg oral tablet (4 sources) Macrolide Antimicrobial Start: 10-01-19 End: 10-06-19 azithromycin (ZITHROMAX Z-SANTO) 250 mg tablet Indications: Acute non-recurrent pansinusitis Take 2 tablets day one, then, 1 tablet daily until gone. 6 tablet 0 10/01/2023 10/06/2023 Active Start: 03-10-2022 End: 03-15-2022 azithromycin (ZITHROMAX Z-PA K) 250 mg tablet Indications: Rhinorrhea , Watery eyes , Acute cough , Sneezing , Malaise , Bacterial sinusitis Take 2 tablets day one, then, 1 tablet daily until gone. 6 tablet 0 03/10/2022 03/15/2022 Active Comment on above: Take 2 tablets day o ne, then, 1 tablet daily until gone. cholecalciferol 0.05 mg oral capsule (20 sources) Vitamin D Start: take 2 capsules by mouth once daily Cholecalciferol, Vitamin D3, 50 mcg (2,000 unit) cap Indications: Vitamin D deficiency Take 2 capsules by mouth once daily. 01/20/2022 Active End: 01-20-2022 take 4 [IU] by mouth every twenty-four hours cholecalciferol (VITAMIN D3) 1,000 unit tab tablet Take 4 Units by mouth q 24 HR. 01/20/2022 Discontinued take 1 [IU] by mouth every twenty-four hours cholecalciferol (VITAMIN D3) 1,000 unit tab tablet Take 1 Units by mouth q 24 HR. 0 Active take 1 tablet by jc th once daily Vitamin D3 25 MCG (1000 UT) Oral Tablet TAKE 1 TABLET DAILY. Refills: 0 Active Comment on above: Take 1 Units by mout h q 24 HR. Take 4 Units by mout h q 24 HR. Take 2 capsules by m outh once daily. ciprofloxacin 500 mg oral tablet (1 source) Quinolone Antimicrobial Start: End: take 1 tablet by mouth twice daily ciprofloxacin HCl (CIPRO) 500 mg tablet Take 1 tablet by mouth two times a day for 10 days. 20 tablet 04/22/2024 05/02/2024 Active dicyclomine hydrochloride 10 mg oral capsule (20 sources) Anticholinergic Start: take 1 capsule by mouth every eight hours as needed dicyclomine (BENTYL) 10 mg capsule Take 1 capsule by mouth three times a day as needed (abdominal pain) for up to 20 doses. 20 capsule 11/18/2023 Active furosemide 20 mg oral tablet (20 sources) Loop Diuretic Start: End: take 1 tablet by mouth once daily Furosemide 20 mg tablet Active 20 mg PO DAILY March 27, 2024 1:00am Start: 05-21-2023 End: 07-13-2023 take 1 tablet by mouth once daily furosemide (LASIX) 40 mg tablet Take 1 tablet by mouth once daily. 30 tablet 3 05/21/2023 07/13/2023 Discontinued Start: 07-08-2020 End: 05-21-2023 take 1 tablet by mouth once daily as needed furosemide (LASIX) 20 mg tablet Take 1 tablet by mouth once daily as needed. 90 tablet 3 07/08/2020 09/11/2022 Discontinued Comment on above: Take 1 tablet by jc th once daily as needed. Take 1 tablet by jc th once daily. 12 hr guaiFENesin 600 mg extended release oral tablet (5 sources) Start: End: take 2 tablets by mouth twice daily guaiFENesin (MUCINEX) 600 mg 12 hr tablet Indications: Acute non-recurrent pansinusitis Take 2 tablets by mouth two times a day for 14 days. 56 tablet 0 10/01/2023 10/15/2023 Active levothyroxine sodium 0.1 mg oral tablet (20 sources) l-Thyroxine Start: 4 End: take 1 tablet by mouth once daily before breakfast levothyroxine (LEVOXYL) 100 mcg tablet Take 1 tablet by mouth daily before breakfast. 90 tablet 1 10/21/2024 Active Start: 01-09-2023 End: 11-07-2023 take 1 tablet by mouth once daily for thyroid dysfunction levothyroxine (LEVOXYL) 88 mcg tablet Indications: Hypothyroidism, unspecified type Take 1 tablet by mouth once daily. Take on empty stomach. For Thyroid 90 tablet 1 01/09/2023 07/13/2023 Discontinued Start: 12-28-2022 End: 01-09-2023 take 1 tablet by mouth once daily for thyroid dysfunction levothyroxine (LEVOXYL) 100 mcg tablet Indications: Hypothyroidism, unspecified type Take 1 tablet by mouth once daily. Take on empty stomach. For Thyroid 90 tablet 1 12/28/2022 01/09/2023 Discontinued Start: 12-26-2022 End: 12-26-2022 take 1 tablet by mouth once daily for thyroid dysfunction levothyroxine (LEVOXYL) 100 mcg tablet Indications: Hypothyroidism, unspecified type Take 1 tablet by mouth once daily. Take on empty stomach. For Thyroid 90 tablet 1 12/26/2022 12/26/2022 Discontinued Start: 09-19-2021 End: 12-26-2022 take 1 tablet by mouth once daily for thyroid dysfunction levothyroxine (LEVOXYL) 88 mcg tablet Indications: Hypothyroidism, unspecified type Take 1 tablet by mouth once daily. Take on empty stomach. For Thyroid 90 tablet 1 07/26/2022 12/26/2022 Discontinued Start: 09-22-2020 End: 09-19-2021 take 1 tablet by mouth once daily before breakfast levothyroxine (SYNTHROID) 75 mcg tablet Take 1 tablet by mouth daily before breakfast. 90 tablet 3 07/01/2021 09/19/2021 Discontinued Comment on above: Take 1 tablet by jc th daily before breakfast. Take 1 tablet by jc th once daily. Take on empty stomach. For Thyroid Take 75 mcg by mouth daily before breakfast. losartan potassium 25 mg oral tablet (20 sources) Angiotensin 2 Receptor Lorenzo Start: 03-27-2024 take 1 tablet by mouth once daily Losartan 25 mg tablet Active 25 mg PO DAILY March 27, 2024 1:00am Start: 08-07-2023 End: 02-12-2024 take 1 tablet by mouth once daily losartan (COZAAR) 25 mg tablet Take 1 tablet by mouth once daily. 90 tablet 3 02/12/2024 Active Start: 12-08-2021 End: 09-11-2023 take 1 tablet by mouth once daily losartan (COZAAR) 50 mg tablet Take 1 tablet by mouth once daily. 90 tablet 3 09/11/2022 04/09/2023 Discontinued (Course of therapy completed) Start: 07-08-2020 End: 11-18-2021 take 1 tablet by mouth once daily losartan (COZAAR) 50 mg tablet Take 1 tablet by mouth once daily. 90 tablet 11 10/19/2021 11/10/2021 Discontinued (Course of therapy completed) Comment on above: Take 1 tablet by jc th once daily. methylPREDNISolone (2 sources) Corticosteroid Start: 2021 End: 2021 methylPREDNISolone (MEDROL, SANTO,) 4 mg Dose-Pack Indications: Rhinorrhea , Watery eyes , Acute cough , Sneezing , Malaise , Bacterial sinusitis Follow dosing instructions, take with food. 21 tablet 0 03/10/2022 03/16/2022 Active Comment on above: Follow dosing instru ctions, take with food. 24 hr metoprolol succinate 25 mg extended release oral tablet (20 sources) beta-Adrenergic Lorenzo Start: 2023 take 1 tablet by mouth every twenty-four hours at bedtime Metoprolol Succinate 25 mg tablet extended release 24 hr Active 25 mg PO AT BEDTIME March 27, 2024 1:00am Start: 07-17-2023 End: 11-03-2025 take 1 tablet by mouth once daily at bedtime metoprolol succinate ER (TOPROL XL) 25 mg 24 hr tablet Take 1 tablet by mouth daily at bedtime. 90 tablet 3 09/23/2024 11/03/2024 Discontinued Start: 12-06-2020 End: 07-13-2023 take 1 tablet by mouth once daily metoprolol succinate ER (TOPROL XL) 25 mg 24 hr tablet Indications: Primary hypertension Take 1 tablet by mouth once daily. 90 tablet 0 06/15/2023 07/13/2023 Discontinued Start: 05-17-2020 End: 11-16-2020 take 1 tablet by mouth once daily metoprolol succinate ER (TOPROL XL) 25 mg 24 hr tablet Take 1 tablet by mouth once daily. 30 tablet 5 05/17/2020 11/16/2020 Discontinued Comment on above: Take 1 tablet by jc th once daily. Take 1 tablet by jc th once daily Take 0.5 tablets by mouth daily at bedtime. ondansetron 8 mg disintegrating oral tablet (20 sources) Serotonin-3 Receptor Antagonist Start: 11-14-19 take 1 tablet by mouth every eight hours as needed for nausea and vomiting Ondansetron 8 mg tablet,disintegrati ng Active 8 mg PO Q8H as needed for nausea and vomiting 12 November 13, 2024 12:00am Start: 03-27-2024 End: 11-13-2024 take 1 tablet by mouth three times daily as needed for nausea and vomiting Ondansetron 4 mg tablet,disintegrating Discontinued 4 mg PO THREE TIMES A DAY as needed for nausea and vomiting 21 0 March 27, 2024 4:48am November 13, 2024 6:02pm Start: 07-13-2023 End: 08-22-2023 take 4 mg intravenously every six hours as needed ondansetron, PF, (ZOFRAN) 4 mg/2 mL soln Inject 4 mg intravenously every 6 hours as needed. 0 07/13/2023 08/22/2023 Discontinued Start: 09-08-2020 End: 07-10-2023 take 1 tablet by mouth once daily as needed for nausea ondansetron (ZOFRAN) 4 mg tablet Take 1 tablet by mouth once daily as needed (for nausea.). 30 tablet 09/08/2020 07/10/2023 Discontinued (Other) Comment on above: Take 1 tablet by jc th once daily as needed (for nausea.). Inject 4 mg intraven ously every 6 hours as needed. potassium chloride 10 meq extended release oral tablet (15 sources) Start: 09-23-2024 take 1 tablet by mouth once daily potassium chloride (K-TAB) 10 mEq tablet Take 1 tablet by mouth once daily. 90 tablet 1 09/23/2024 Active Start: 07-18-2023 End: 08-07-2023 take 1 tablet by mouth once daily potassium chloride ER (KLOR-CON) 20 mEq tablet Take 1 tablet by mouth once daily. 30 tablet 1 07/18/2023 08/07/2023 Discontinued Comment on above: Take 1 tablet by jc th once daily. predniSONE 10 mg oral tablet (6 sources) Start: 11-07-2023 End: 11-16-2023 predniSONE (DELTASONE) 10 mg tablet Indications: Acute midline low back pain without sciatica Take 4 tabs daily for 3 days, then 2 tabs daily for 3 days, then 1 tab daily for 3 days with food. 21 tablet 0 11/07/2023 11/16/2023 Active Start: 10-15-2023 End: 10-19-2023 take 1 tablet by mouth once daily at mealtime predniSONE (DELTASONE) 20 mg tablet Indications: Localized swelling of left foot , Foot pain, left , 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 Take 1 tablet by mouth once daily for 4 days. Take daily with food. 4 tablet 0 10/15/2023 10/19/2023 Active Start: 08-22-2023 End: 08-31-2023 predniSONE (DELTASONE) 10 mg tablet Indications: 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 Take 4 tabs daily for 3 days, then 2 tabs daily for 3 days, then 1 tab daily for 3 days with food. 21 tablet 0 08/22/2023 08/31/2023 Active Comment on above: Take 4 tabs daily fo r 3 days, then 2 tabs daily for 3 days, then 1 tab daily for 3 days with food. sacubitril 49 mg / valsartan 51 mg oral tablet (9 sources) Angiotensin 2 Receptor Lorenzo Start: End: take 1 tablet by mouth twice daily sacubitril-valsartan (ENTRESTO) 49-51 mg tablet Take 1 tablet by mouth two times a day. 60 tablet 3 05/21/2023 07/13/2023 Discontinued Start: 04-09-2023 End: 05-21-2023 take 1 tablet by mouth twice daily sacubitril-valsartan (ENTRESTO) 24-26 mg tablet Take 1 tablet by mouth two times a day. 60 tablet 3 04/09/2023 05/21/2023 Discontinued Start: 11-10-2021 End: 12-08-2021 take 1 tablet by mouth twice daily sacubitril-valsartan (ENTRESTO) 24-26 mg tablet Take 1 tablet by mouth twice daily. 60 tablet 3 11/10/2021 12/08/2021 Discontinued Comment on above: Take 1 tablet by jc th twice daily. Take 1 tablet by jc th two times a day. simethicone 80 mg chewable tablet (9 sources) Start: 11-13-2024 Simethicone 80 mg tablet,chewable Active 160 mg PO NEEDED as needed for abdominal distention November 13, 2024 12:00am Start: 11-18-2023 End: 01-17-2024 simethicone, chewable (MYLIC ON) 80 mg chewable tablet Take 2 tablets by mouth as directed. As needed after meals for pain /gas 60 tablet 11/18/2023 01/17/2024 Completed/Discontinued Medications Medication Drug Class(es) Dates Sig (Normalized) Sig (Original) benzonatate 100 mg oral capsule (20 sources) Non-narcotic Antitussive Start: 03-10-2022 End: 07-13-2023 take 1 capsule by mouth three times daily as needed for cough benzonatate (TESSALON PERLES) 100 mg capsule Indications: Rhinorrhea , Watery eyes , Acute cough , Sneezing , Malaise , Bacterial sinusitis Take 1 capsule by mouth three times daily as needed for cough. 21 capsule 03/10/2022 07/13/2023 Discontinued Comment on above: [facility] three times daily as needed for cough. bisacodyl 5 mg delayed release oral tablet (17 sources) Stimulant Laxative Start: 01-06-2021 End: 11-03-2021 Bisacodyl (DULCOLAX) 5 mg tab Indications: Rectal bleeding , Tubular adenoma of colon Use as directed for Miralax / Gatorade Bowel Prep Kit 4 tablet 0 01/06/2021 11/03/2021 Discontinued End: 12-05-2021 take 1 tablet by mouth once daily as needed for constipation bisacodyl EC (DUCODYL, BISACODYL,) 5 mg EC tablet Take 5 mg by mouth once daily as needed for constipation. 0 12/05/2021 Discontinued Comment on above: Use as directed for Miralax / Gatorade Bowel Prep Kit Take 5 mg by mouth o nce daily as needed for constipation. C/sourcherry/celery/g rape seed (TART FONTANEZ ORAL) (17 sources) End: 11-03-2021 C/sourcherry/celery/grape seed (TART FONTANEZ ORAL) Take by mouth. 11/03/2021 Discontinued End: 11-03-2021 C/sourcherry/celery/grape se ed (TART FONTANEZ ORAL) Take by mouth. 0 11/03/2021 Discontinued C/sourcherry/saira andrew/grape seed (TART FONTANEZ ORAL) Take by mouth. 0 Active Comment on above: Take by mouth. Fontanez Concentrate Oral Concentrate (2 sources) Fontanez Concentra te Oral Concentrate Refills: 0 Active Fontanez Concentra te Oral Concentrate Refills: 0 DO Active doxycycline hyclate 100 mg oral tablet (4 sources) Tetracycline-class Drug Start: 07-01-2024 End: 07-11-2024 take 1 tablet by mouth twice daily doxycycline (VIBRA-TABS) 100 mg tablet Take 1 tablet by mouth two times a day for 10 days. 20 tablet 07/01/2024 07/11/2024 Start: 03-21-2024 End: 03-31-2024 take 1 tablet by mouth twice daily doxycycline (VIBRA-TABS) 100 mg tablet Take 1 tablet by mouth two times a day for 10 days. 20 tablet 03/21/2024 03/31/2024 Active empagliflozin 10 mg oral tablet (14 sources) Sodium-Glucose Cotransporter 2 Inhibitor Start: 08-07-2023 End: 10-01-2023 take 1 tablet by mouth once daily at breakfast empagliflozin (JARDIANCE) 10 mg tablet Take 1 tablet by mouth daily with breakfast. 30 tablet 3 08/07/2023 10/01/2023 Discontinued Comment on above: Take 1 tablet by jc th daily with breakfast. enteric contrast (will be provided with radiology test) (2 sources) Start: 08-22-2022 End: 08-23-2022 enteric contrast (will be provided with radiology test) Indications: Abdominal distension (gaseous) , Nausea , RUQ abdominal pain For CT ABD/PEL W IVCON Routine order Administer, As Directed One Time Only, via Oral, Rectal, both Oral and Rectal, Enteric Tube, Stoma or Indwelling Catheter, Enteric Contrast as designated per enteric contrast guidelines 1 Each 0 08/22/2022 08/23/2022 Start: 10-19-2021 End: 10-20-2021 enteric contrast (will be pr ovided with radiology test) Indications: Diverticulitis , RLQ abdominal pain , Lower abdominal pain For CT ABD/PEL W IVCON Routine order Administer, As Directed One Time Only, via Oral, Rectal, both Oral and Rectal, Enteric Tube, Stoma or Indwelling Catheter, Enteric Contrast as designated per enteric contrast guidelines 1 Each 0 10/19/2021 10/20/2021 Active Comment on above: For CT ABD/PEL W IVC ON Routine order Administer, As Directed One Time Only, via Oral, Rectal, both Oral and Rectal, Enteric Tube, Stoma or Indwelling Catheter, Enteric Contrast as designated per enteric contrast guidelines ERGOCALCIFEROL, VITAMIN D2, (VITAMIN D ORAL) (2 sources) End: 10-20-2020 take 2000 [IU] by mouth once daily ERGOCALCIFEROL, VITAMIN D2, (VITAMIN D ORAL) Take 2,000 Units by mouth once daily. 10/20/2020 Discontinued (Duplicate Entry) End: 10-20-2020 take 2000 [IU] by mouth once daily ERGOCALCIFEROL, VITAMIN D2, (VITAMIN D ORAL) Take 2,000 Units by mouth once daily. 0 10/20/2020 Discontinued (Duplicate Entry) Comment on above: Take 2,000 Units by mouth once daily. ezetimibe 10 mg oral tablet (11 sources) Dietary Cholesterol Absorption Inhibitor Start: 07-18-19 End: 08-22-19 take 1 tablet by mouth once daily ezetimibe (ZETIA) 10 mg tablet Take 1 tablet by mouth once daily. 30 tablet 1 07/18/2023 08/22/2023 Discontinued Comment on above: Take 1 tablet by jc once daily. fluconazole 150 mg oral tablet (1 source) Azole Antifungal Start: 08-22-19 End: 08-22-19 fluconazole (DIFLUCAN) 150 mg tablet Indications: Vagina, candidiasis , Burning with urination Take 1 tablet by mouth one time only for 1 dose. Repeat in 3 days as needed. 2 tablet 0 08/22/2023 08/22/2023 Comment on above: Take 1 tablet by jc one time only for 1 dose. Repeat in 3 days as needed. hyoscyamine sulfate 0.125 mg sublingual tablet (1 source) Start: 10-23-19 15 End: 05-03-20 20 take 1 tablet under the tongue at bedtime hyoscyamine sublingual (LEVSIN SL) 0.125 mg subl Indications: IBS (irritable bowel syndrome) Dissolve 1 tablet under the tongue before meals and at bedtime. 120 tablet 6 10/22/2014 05/03/2020 Discontinued Comment on above: Dissolve 1 tablet un sukhjinder the tongue before meals and at bedtime. iv contrast (will be provided with radiology test) (2 sources) Start: 08-23-19 23 End: 08-24-19 iv contrast (will be provided with radiology test) Indications: Abdominal distension (gaseous) , Nausea , RUQ abdominal pain CT ABD/PEL -Inject, intravenously, once for 1 dose.No IV access, insert saline lock prior to the beginning of sedation, infusion, injection of imaging exam. Discontinue saline lock post exam. If Pt. has a central line or IVAD, may access for administration according to line specific nursing protocol. Once exam is complete flush line and de-access according to line specific nursing protocol in the CT contrast administration guidelines link. 1 Each 0 08/22/2022 08/23/2022 Start: 10-19-2021 End: 10-20-2021 iv contrast (will be provide d with radiology test) Indications: Diverticulitis , RLQ abdominal pain , Lower abdominal pain CT ABD/PEL -Inject, intravenously, once for 1 dose.No IV access, insert saline lock prior to the beginning of sedation, infusion, injection of imaging exam. Discontinue saline lock post exam. If Pt. has a central line or IVAD, may access for administration according to line specific nursing protocol. Once exam is complete flush line and de-access according to line specific nursing protocol in the CT contrast administration guidelines link. 1 Each 0 10/19/2021 10/20/2021 Active Comment on above: CT ABD/PEL -Inject, intravenously, once for 1 dose.No IV access, insert saline lock prior to the beginning of sedation, infusion, injection of imaging exam. Discontinue saline lock post exam. If Pt. has a central line or IVAD, may access for administration according to line specific nursing protocol. Once exam is complete flush line and de-access according to line specific nursing protocol in the CT contrast administration guidelines link. L. acidophilus/L. rhamnosus (FLORAJEN WOMEN ORAL) (20 sources) End: 07-13-2023 L. acidophilus/L. rhamnosus (FLORAJEN WOMEN ORAL) Take 1 tablet by mouth as needed. 07/13/2023 Discontinued End: 07-13-2023 L. acidophilus/L. rhamnosus (FLORAJEN WOMEN ORAL) Take 1 tablet by mouth as needed. 0 07/13/2023 Discontinued L. acidophilus/L . rhamnosus (FLORAJEN WOMEN ORAL) Take by mouth once daily. 0 Active L. acidophilus/L . rhamnosus (FLORAJEN WOMEN ORAL) Take by mouth. 0 Active Comment on above: Take by mouth. Take by mouth once d aily. Take 1 tablet by jc th as needed. liothyronine sodium 0.005 mg oral tablet (3 sources) l-Triiodothyronine Start: 04-17-20 End: 07-10-19 24 take 1 tablet by mouth once daily in the morning for thyroid dysfunction liothyronine (CYTOMEL) 5 mcg tablet Indications: Hypothyroidism, acquired Take 1 tablet by mouth once daily. In the morning for thyroid 90 tablet 1 04/17/2023 07/10/2023 Discontinued (Other) Comment on above: Take 1 tablet by jc th once daily. In the morning for thyroid meloxicam 15 mg oral tablet (11 sources) Nonsteroidal Anti-inflammatory Drug Start: 12-14-19 End: 07-10-19 take 1 tablet by mouth once daily as needed for pain meloxicam (MOBIC) 15 mg tablet Take 1 tablet by mouth once daily. As needed for joint pain, Take with food. 30 tablet 1 12/13/2022 07/10/2023 Discontinued (Other) Start: 10-05-2016 End: 05-03-2020 take 1 tablet by mouth once daily meloxicam (MOBIC) 7.5 mg tablet Take 1 tablet by mouth once daily. 30 tablet 1 10/05/2016 05/03/2020 Discontinued Comment on above: Take 1 tablet by jc th once daily. As needed for joint pain, Take with food. Take 1 tablet by jc th once daily. [place]-3 Fatty Acids-Vitamin E (FISH OIL) 1,000 mg cap (1 source) End: 04-30-20 take 1 capsule by mouth once daily [place]-3 Fatty Acids-Vitamin E (FISH OIL) 1,000 mg cap Take 1 capsule by mouth once daily. 0 04/30/2020 Discontinued Comment on above: Take 1 capsule by [facility] once daily. omeprazole 20 mg delayed release oral capsule (20 sources) Proton Pump Inhibitor Start: 08-22-19 End: 10-01-19 take 1 capsule by mouth once daily before breakfast omeprazole (PRILOSEC) 20 mg capsule Indications: Acute cough , Laryngopharyngeal reflux (LPR) Take 1 capsule by mouth daily before breakfast. 1/2 hr before meal. 30 capsule 1 08/22/2023 10/01/2023 Discontinued Start: 12-05-2021 End: 07-10-2023 take 1 capsule by mouth once daily omeprazole (PRILOSEC) 40 mg capsule Take 1 capsule by mouth once daily. 30 capsule 2 12/19/2021 07/10/2023 Discontinued (Other) Comment on above: Take 1 capsule by mo [facility] once daily. Take 1 capsule by mo [facility] daily before breakfast. 1/2 hr before meal. OREGANO OIL ORAL (20 sources) End: 07-13-2023 OREGANO OIL ORAL Take by mouth once daily. 07/13/2023 Discontinued End: 07-13-2023 [facility] 0 07/13/2023 Discontinued OREGANO OIL ORAL Take by mouth once daily. 0 Active Comment on above: Take by mouth once d aily. perflutren lipid microspheres 1.3 mL in NaCl (PF) 0.9% 10 mL injection (DEFINITY) (20 sources) Start: 09-11-2022 End: 12-05-2023 perflutren lipid microspheres 1.3 mL in NaCl (PF) 0.9% 10 mL injection (DEFINITY) Start: 09-11-2022 End: 12-11-2023 perflutren lipid microsphere s 1.3 mL in NaCl (PF) 0.9% 10 mL injection (DEFINITY) Start: 02-13-2022 End: 05-15-2023 perflutren lipid microsphere s 1.3 mL in NaCl (PF) 0.9% 10 mL injection (DEFINITY) Start: 05-23-2021 End: 08-22-2022 perflutren lipid microsphere s 1.3 mL in NaCl (PF) 0.9% 10 mL injection (DEFINITY) Start: 12-06-2020 End: 03-07-2022 perflutren lipid microsphere s 1.3 mL in NaCl (PF) 0.9% 10 mL injection (DEFINITY) Start: 04-01-2020 End: 04-30-2020 perflutren lipid microsphere s 1.3 mL in NaCl (PF) 0.9% 10 mL injection (DEFINITY) Polyethylene Glycols (1 source) End: 12-05-2021 polyethylene glycol 3350 (MIRALAX ORAL) Take by mouth. 0 12/05/2021 Discontinued Comment on above: Take by mouth. promethazine hydrochloride 1.25 mg/ml oral solution (20 sources) Phenothiazine Start: 03-10-2022 End: 07-10-2023 take 5-10 mL by mouth four times daily as needed for cough promethazine (PHENERGAN) 6.25 mg/5 mL syrup Indications: Rhinorrhea , Watery eyes , Acute cough , Sneezing , Malaise , Bacterial sinusitis Take 5-10ml by mouth 4 times daily as needed for cough 200 mL 03/10/2022 07/10/2023 Discontinued (Other) Comment on above: Take 5-10ml by mouth 4 times daily as needed for cough rosuvastatin calcium 5 mg oral tablet (20 sources) HMG-CoA Reductase Inhibitor Start: 10-24-2021 End: 07-21-2022 take 1 tablet by mouth once daily rosuvastatin (CRESTOR) 5 mg tablet Indications: Coronary artery disease involving [place] coronary 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 30 tablet 0 10/24/2021 07/21/2022 Discontinued Comment on above: Take 1 tablet by jc once daily. 125 ml sodium chloride 9 mg/ml prefilled syringe (20 sources) Start: 12-06-2020 End: 12-11-2023 sodium chloride 0.9 % (flush) 10 mL (BD POSIFLUSH) Start: 04-01-2020 End: 04-30-2020 sodium chloride 0.9 % (flush ) 10 mL (BD POSIFLUSH) vitamin b12 1 mg/ml injectable solution (20 sources) Vitamin B12 Start: 07-21-2024 End: 07-21-2024 cyanocobalamin 1,000 mcg injection Start: 07-21-2024 End: 07-21-2024 inject 1 dose by intramuscular injection once 1,000 mcg, INTRAMUSCULAR, ONCE, 1 dose, On Sun07/21/24 at 1700 Start: 07-08-2024 End: 07-08-2024 cyanocobalamin 1,000 mcg inj ection Start: 07-08-2024 End: 07-08-2024 inject 1 dose by intramuscular injection once 1,000 mcg, INTRAMUSCULAR, ONCE, 1 dose, On Sun07/08/24 at 1500 Start: 07-26-2022 take 1 tablet by mouth once da rich cyanocobalamin (VITAMIN B- 12) 1,000 mcg tab Take 1 tablet by mouth once daily. 30 tablet 2 07/26/2022 Active Comment on above: Take 1 tablet by jc th once daily. Zinc (20 sources) End: 07-13-2023 ZINC ORAL Take 50 mg by mouth as needed. 07/13/2023 Discontinued End: 07-13-2023 ZINC ORAL Take 50 mg by mout h as needed. 0 07/13/2023 Discontinued ZINC ORAL Take b y mouth as needed. 0 Active ZINC ORAL Take b y mouth. 0 Active Comment on above: Take by mouth. Take by mouth as nee ded. Take 50 mg by mouth as needed. Problems Active Problems Problem Classification Problem Date Documented Da te Episodic/Chronic Allergic reactions (3 sources) Urticaria; Translations: [Urticaria, unspecified] Episodic Cardiac dysrhythmias (20 sources) Supraventricular tachycardia; Translations: [Supraventricular tachycardia] Onset: 3 09-11-2022 Chronic Chronic obstructive pulmonary disease and bronchiectasis (20 sources) Chronic bronchitis; Translations: [Unspecified chronic bronchitis] Onset: 3 09-11-2022 Chronic Coagulation and hemorrhagic disorders (20 sources) Homozygous Factor V Leiden mutation; Translations: [Activated protein C resistance] Onset: 0 05-03-2020 Chronic Conduction disorders (20 sources) Bundle branch block; Translations: [Nonspecific intraventricular block] Onset: 2 05-23-2021 Chronic Congestive heart failure; nonhypertensive (20 sources) Acute on chronic systolic heart failure; Translations: [Acute on chronic systolic (congestive) heart failure] Onset: 0 05-30-2020 Chronic Coronary atherosclerosis and other heart disease (20 sources) Coronary atherosclerosis; Translations: [Atherosclerotic heart disease of [place] coronary artery with other forms of angina pectoris] Onset: 3 Chronic Deficiency and other anemia (2 sources) Anemia; Translations: [Anemia, unspecified] 10-31-2023 Episodic Diabetes mellitus without complication (1 source) Increased glucose level; Translations: [Other abnormal glucose] Episodic Diseases of white blood cells (1 source) Elevated white blood cell count, unspecified; Translations: [Leukocytosis, unspecified type] Onset: 4 Chronic Disorders of lipid metabolism (20 sources) Hyperlipidemia; Translations: [Mixed hyperlipidemia] Onset: 1 12-29-2020 Chronic Diverticulosis and diverticulitis (20 sources) Diverticulitis; Translations: [Diverticulitis of intestine, part unspecified, without perforation or abscess without bleeding] Onset: 1 09-29-2020 Chronic E Codes: Fall (1 source) Fall on same level from slipping, tripping or stumbling ; Translations: [Fall on same level from slipping, tripping and stumbling without subsequent striking against object, initial encounter] 11-13-2024 Episodic E Codes: Natural/environment (2 sources) Repetitive motion disorder; Translations: [Overexertion from repetitive movements, initial encounter] 09-24-2023 Episodic Esophageal disorders (1 source) Laryngopharyngeal reflux; Translations: [Gastro-esophageal reflux disease without esophagitis] 08-22-2023 Chronic Essential hypertension (20 sources) Essential hypertension; Translations: [Essential (primary) hypertension] Onset: 1 02-14-2021 Chronic Genitourinary symptoms and ill-defined conditions (4 sources) Dysuria; Translations: [Dysuria] Episodic Gout and other crystal arthropathies (20 sources) Gouty arthritis of left foot; Translations: [Idiopathic gout, left ankle and foot] Onset: 1 09-22-2020 Chronic Headache; including migraine (2 sources) Headache; Translations: [New onset of headaches after age 50] 10-31-2023 Episodic Hypertension with complications and secondary hypertension (20 sources) Heart disease; Translations: [Hypertensive heart disease without heart failure] Onset: 4 10-02-2023 Chronic Mycoses (1 source) Candidiasis of vagina; Translations: [Vagina, candidiasis] 08-22-2023 Episodic Nutritional deficiencies (20 sources) Vitamin D deficiency; Translations: [Vitamin D deficiency, unspecified] Onset: 3 Chronic Osteoarthritis (20 sources) Arthropathy; Translations: [Primary osteoarthritis, right ankle and foot] Onset: 3 08-02-2022 Chronic Other aftercare (1 source) Other fdc (current) drug therapy; Translations: [Medication management] Onset: 5 Episodic Other and ill-defined heart disease (20 sources) Cardiomegaly; Translations: [Cardiomegaly] Onset: 2 Chronic Other and ill-defined heart disease (20 sources) Combined systolic and diastolic dysfunction; Translations: [Other ill-defined heart diseases] Onset: 3 09-11-2022 Chronic Other and unspecified benign neoplasm (1 source) History of polyp of colon; Translations: [Personal history of colonic polyps] Episodic Other bone disease and musculoskeletal deformities (2 sources) Disorder of bone; Translations: [Disorder of bone density and structure, unspecified] Episodic Other bone disease and musculoskeletal deformities (2 sources) Somatic dysfunction; Translations: [Somatic dysfunction] Episodic Other connective tissue disease (3 sources) Pain in left foot; Translations: [Pain in left foot] 09-13-2023 Episodic Other connective tissue disease (1 source) Cramp in lower limb; Translations: [Cramp and spasm] 10-31-2023 Episodic Other connective tissue disease (1 source) Pain in hallux; Translations: [Pain in left toe(s)] 08-02-2020 Episodic Other diseases of veins and lymphatics (1 source) Vascular insufficiency; Translations: [Venous insufficiency (chronic) (peripheral)] 09-24-2023 Episodic Other gastrointestinal disorders (20 sources) Irritable bowel syndrome; Translations: [Irritable bowel syndrome without diarrhea] Onset: 3 05-30-2020 Chronic Other gastrointestinal disorders (4 sources) Abdominal bloating; Translations: [Abdominal distension (gaseous)] Episodic Other gastrointestinal disorders (3 sources) Burping; Translations: [Eructation] Episodic Other gastrointestinal disorders (2 sources) Abdominal distension, gaseous; Translations: [Abdominal distension (gaseous)] Episodic Other infections; including parasitic (1 source) History of Clostridium difficile intestinal infection; Translations: [Personal history of other infectious and parasitic diseases] Episodic Other lower respiratory disease (2 sources) Cough; Translations: [Acute cough] Episodic Other lower respiratory disease (1 source) Chronic cough; Translations: [Chronic cough] 05-17-2023 Episodic Other lower respiratory disease (1 source) Shortness of breath; Translations: [Shortness of breath] Onset: 4 Episodic Other lower respiratory disease (3 sources) Cough; Translations: [Acute cough] 07-08-2024 Episodic Other nervous system disorders (1 source) Other chronic pain; Translations: [Chronic bilateral thoracic back pain] Onset: 3 Chronic Other nervous system disorders (2 sources) Word finding difficulty ; Translations: [Other speech disturbances] 10-31-2023 Episodic Other nervous system disorders (1 source) Other speech disturbances; Translations: [Word finding difficulty] Onset: 4 Episodic Other non-traumatic joint disorders (2 sources) Chronic pain of left upper limb; Translations: [Pain in left shoulder] Episodic Other non-traumatic joint disorders (2 sources) Pain in elbow; Translations: [Pain in left elbow] Episodic Other nutritional; endocrine; and metabolic disorders (20 sources) Obese class I; Translations: [Obesity, unspecified] Onset: 0 09-29-2020 Chronic Other nutritional; endocrine; and metabolic disorders (1 source) Body mass index 30+ - obesity; Translations: [Body mass index (BMI) 34.0-34.9, adult] Chronic Other skin disorders (1 source) Enlargement of neck; Translations: [Localized swelling, mass and lump, neck] 01-10-2023 Episodic Other skin disorders (3 sources) Localized swelling of left foot; Translations: [Localized swelling, mass and lump, left lower limb] 09-13-2023 Episodic Other upper respiratory infections (2 sources) Sore throat symptom; Translations: [Acute pharyngitis, unspecified] Episodic [place]-; endo-; and myocarditis; cardiomyopathy (except that caused by tuberculosis or sexually transmitted disease) (20 sources) Heart valve disorder; Translations: [Endocarditis, valve unspecified] Onset: 1 04-06-2021 Chronic Prolapse of female genital organs (20 sources) Uterine prolapse; Translations: [Midline cystocele] Onset: 1 05-25-2020 Chronic Residual codes; unclassified (2 sources) Menopause present; Translations: [Asymptomatic menopausal state] Episodic Residual codes; unclassified (1 source) Chill; Translations: [Chills (without fever)] 04-04-2024 Episodic Superficial injury; contusion (4 sources) Contusion of unspecified back wall of thorax, initial encounter; Translations: [Contusion of back wall of thorax] 11-13-2024 Episodic Thyroid disorders (20 sources) Hypothyroidism; Translations: [Hypothyroidism, unspecified] Onset: 8 09-29-2020 Chronic Unclassified (1 source) New onset of headaches after age 50; Translations: [New onset of headaches after age 50] Onset: 4 Unclassified (1 source) Acute cough; Translations: [Acute cough] Onset: 5 Unclassified (1 source) OMT Onset: 4 Viral infection (1 source) Viral disease; Translations: [Viral infection, unspecified] 04-04-2024 Episodic Past or Other Problems Problem Classification Problem Date Documented Da te Episodic/Chronic Abdominal pain (11 sources) Right lower quadrant pain; Translations: [Right lower quadrant pain] Onset: 07-08-2024 Episodic Acquired foot deformities (20 sources) Right foot drop; Translations: [Foot drop, right foot] Onset: 08-02-2022 08-02-2022 Episodic Acute and unspecified renal failure (20 sources) Acute kidney failure, unspecified; Translations: [Acute renal failure syndrome] Onset: 11-16-2023 Resolved: 11-18-2023 11-18-2023 Episodic Aspiration pneumonitis; food/vomitus (20 sources) Aspiration pneumonia; Translations: [Pneumonitis due to inhalation of food and vomit] Onset: 05-30-2020 Resolved: 09-22-2020 09-22-2020 Episodic Biliary tract disease (20 sources) Acute cholecystitis without calculus; Translations: [Acute cholecystitis] Onset: 05-30-2020 05-30-2020 Episodic Cardiac dysrhythmias (20 sources) Palpitations; Translations: [Palpitations] Onset: 12-16-2014 05-03-2020 Episodic Conditions associated with dizziness or vertigo (3 sources) Dizziness and giddiness; Translations: [Lightheadedness] Onset: 07-10-2023 07-08-2024 Episodic Deficiency and other anemia (1 source) Anemia, unspecified; Translations: [Anemia, unspecified type] Onset: 07-08-2024 Episodic Fluid and electrolyte disorders (20 sources) Hypokalemia; Translations: [Hypokalemia] Onset: 09-29-2020 09-29-2020 Episodic Malaise and fatigue (20 sources) Fatigue; Translations: [Other fatigue] Onset: 07-24-2023 07-24-2023 Episodic Nausea and vomiting (5 sources) Nausea; Translations: [Nausea] Onset: 07-08-2024 Episodic Nonspecific chest pain (20 sources) Chest pain; Translations: [Chest pain, unspecified] Onset: 05-03-2020 Resolved: 06-14-2020 06-14-2020 Episodic Nutritional deficiencies (3 sources) Cobalamin deficiency; Translations: [Deficiency of other specified B group vitamins] Onset: 07-08-2024 07-08-2024 Episodic Other aftercare (20 sources) Post-discharge follow-up; Translations: [Encounter for follow-up examination after completed treatment for conditions other than malignant neoplasm] Onset: 12-06-2020 12-06-2020 Episodic Other and unspecified benign neoplasm (20 sources) Tubular adenoma of colon; Translations: [Benign neoplasm of colon, unspecified] Onset: 12-09-2020 12-09-2020 Episodic Other bone disease and musculoskeletal deformities (20 sources) Somatic dysfunction of head region; Translations: [Segmental and somatic dysfunction of head region] Onset: 08-10-2022 Episodic Other bone disease and musculoskeletal deformities (20 sources) Cervical somatic dysfunction; Translations: [Segmental and somatic dysfunction of cervical region] Onset: 07-18-2022 Episodic Other bone disease and musculoskeletal deformities (20 sources) Somatic dysfunction of rib; Translations: [Segmental and somatic dysfunction of rib cage] Onset: 07-18-2022 Episodic Other bone disease and musculoskeletal deformities (20 sources) Somatic dysfunction of thoracic region; Translations: [Segmental and somatic dysfunction of thoracic region] Onset: 07-18-2022 Episodic Other bone disease and musculoskeletal deformities (20 sources) Somatic dysfunction of pelvic region; Translations: [Segmental and somatic dysfunction of pelvic region] Onset: 10-31-2023 10-31-2023 Episodic Other bone disease and musculoskeletal deformities (20 sources) Somatic dysfunction of lumbar region; Translations: [Segmental and somatic dysfunction of lumbar region] Onset: 01-10-2024 01-10-2024 Episodic Other bone disease and musculoskeletal deformities (1 source) Segmental and somatic dysfunction of rib cage; Translations: [Somatic dysfunction of rib] Onset: 07-18-2022 Episodic Other bone disease and musculoskeletal deformities (1 source) Segmental and somatic dysfunction of lumbar region; Translations: [Somatic dysfunction of spine, lumbar] Onset: 01-10-2024 Episodic Other bone disease and musculoskeletal deformities (1 source) Segmental and somatic dysfunction of thoracic region; Translations: [Somatic dysfunction of spine, thoracic] Onset: 07-18-2022 Episodic Other bone disease and musculoskeletal deformities (1 source) Segmental and somatic dysfunction of cervical region; Translations: [Somatic dysfunction of spine, cervical] Onset: 07-18-2022 Episodic Other bone disease and musculoskeletal deformities (1 source) Segmental and somatic dysfunction of pelvic region; Translations: [Somatic dysfunction of pelvic region] Onset: 10-31-2023 Episodic Other bone disease and musculoskeletal deformities (1 source) Segmental and somatic dysfunction of head region; Translations: [Somatic dysfunction of head region] Onset: 08-10-2022 Episodic Other connective tissue disease (20 sources) Lateral epicondylitis of left humerus; Translations: [Lateral epicondylitis, left elbow] Onset: 07-11-2021 Episodic Other diseases of kidney and ureters (20 sources) Renal impairment; Translations: [Disorder of kidney and ureter, unspecified] Onset: 12-29-2020 12-29-2020 Episodic Other gastrointestinal disorders (1 source) Flatulence; Translations: [Flatulence, eructation, and gas pain] Onset: 12-12-2023 Episodic Other gastrointestinal disorders (1 source) Gas pain; Translations: [Flatulence, eructation, and gas pain] Onset: 12-12-2023 Episodic Other gastrointestinal disorders (1 source) Eructation; Translations: [Flatulence, eructation, and gas pain] Onset: 12-12-2023 Episodic Other gastrointestinal disorders (1 source) Other fecal abnormalities; Translations: [Loose stools] Onset: 12-12-2023 Episodic Other lower respiratory disease (20 sources) Rib pain; Translations: [Pleurodynia] Onset: 07-18-2022 Episodic Other lower respiratory disease (20 sources) Dyspnea; Translations: [Shortness of breath] Onset: 05-03-2020 Resolved: 06-14-2020 12-14-2022 Episodic Other non-traumatic joint disorders (20 sources) Shoulder pain; Translations: [Pain in left shoulder] Onset: 07-11-2021 Episodic Other non-traumatic joint disorders (20 sources) Chronic ankle pain; Translations: [Pain in right ankle and joints of right foot] Onset: 12-29-2020 12-29-2020 Episodic Other non-traumatic joint disorders (20 sources) Pain in left shoulder; Translations: [Pain in joint, shoulder region] Onset: 07-11-2021 07-11-2021 Episodic Other screening for suspected conditions (not mental disorders or infectious disease) (20 sources) Patient encounter status; Translations: [Encounter for screening for malignant neoplasm of colon] Onset: 04-06-2021 04-06-2021 Episodic Residual codes; unclassified (20 sources) Postoperative state; Translations: [Other specified postprocedural states] Onset: 05-24-2020 Resolved: 06-14-2020 06-14-2020 Episodic Respiratory failure; insufficiency; arrest (adult) (20 sources) Acute respiratory failure; Translations: [Acute respiratory failure with hypoxia] Onset: 07-13-2023 07-13-2023 Episodic Spondylosis; intervertebral disc disorders; other back problems (20 sources) Neck pain; Translations: [Cervicalgia] Onset: 07-18-2022 Episodic Syncope (20 sources) Syncope and collapse; Translations: [Near syncope] Onset: 11-15-2023 11-15-2023 Episodic Unclassified (2 sources) Patient encounter status; Translations: [Visit for screening mammogram] NEGATED: Highlighted row has not occurred!Residual codes; unclassified (20 sources) Disease Episodic Results Test Name Value Interpretation Reference Range Facility Absolute lymphocyte countOrd ered By: Jose Goldberg on 11-13-2024 Lymphocytes Auto (Unsp spec) [#/Vol] 2.58 10*3/uL 0.83-4.51 [facility] Absolute neutrophil countOrd ered By: Jose Goldberg on 11-13-2024 Neutrophils (Bld) [#/Vol] 5.9 10*3/uL 2.0-7.7 [facility] Anion gap in Serum or Plasma Ordered By: Jose Goldberg on 11-13-2024 Anion gap [Moles/Vol] 12 mmol/L 5-15 [place] Automated lymphocyte count a s percentage of total leukocytesOrdered By: Jose Goldberg on 11-13-2024 Lymphocytes/100 WBC Auto (Unsp spec) 26.8 % 19-41 [facility] BUN/creatinine ratioOrdered By: Jose Goldberg on 11-13-2024 Urea nitrogen/Creatinine [Mass ratio] 22.8 mg/mg High 10-20 [facility] Basophil percentageOrdered B y: Jose Goldberg on 11-13-2024 Basophils/100 WBC (Bld) 1.0 % 0-1 [facility] Bilirubin Test strip Ql (U)O rdered By: Jose Goldberg on 11-13-2024 Bilirubin Ql (U) Negative Negative [facility] CBC + diff autoon 11-13-2024 CBC W Auto Differential panel (Bld) [facility] Carbon dioxide, total [Moles /volume] in Central venous bloodOrdered By: Jose Goldberg on 11-13-2024 CO2 [Moles/Vol] 20.2 mmol/L Low 21.0-32.0 [facility] Chloride assayOrdered By: Skyla Goldberg on 11-13-2024 Chloride [Moles/Vol] 107 mmol/L 98-108 [facility] Eosinophil percentageOrdered By: Jose Goldberg on 11-13-2024 Eosinophils/100 WBC (Bld) 1.3 % 0-5 [facility] Erythrocyte distribution wid th ratioOrdered By: Jose Goldberg on 11-13-2024 Erythrocyte distribution width (RBC) [Ratio] 13.8 % 11.6-14.6 [facility] Erythrocyte distribution wid th standard deviationOrdered By: Jose Goldberg on 11-13-2024 Erythrocyte distribution width (RBC) [Ratio] 45.6 fl High 35.1-43.9 [facility] Glomerular filtration rate ( GFR) estimation/1.73 sq m using serum, plasma, or whole bOrdered By: Jose Goldberg on 11-13-2024 GFR/1.73 sq M.predicted among non-blacks MDRD (S/P/Bld) [Vol rate/Area] 61 mL/min/{1.73_m2} >60 [facility] Comment on above: mL/min/1.73m2 CKD-EP I Creatinine Equation (2020) Hematocrit Auto (Bld) [Volum e fraction]Ordered By: Jose Goldberg on 11-13-2024 Hematocrit (Bld) [Volume fraction] 37.5 % 37-47 [facility] Hemoglobin measurementOrdere d By: Jose Goldberg on 11-13-2024 Hemoglobin (Bld) [Mass/Vol] 12.1 g/dL 12.0-15.0 [facility] Immature granulocytes/100 WB C Auto (Bld)Ordered By: Jose Goldberg on 11-13-2024 Immature granulocytes/100 WBC (Bld) 0.700 % 0.0-0.9 [facility] Comment on above: IG% - Immature Granu locytes (promyelocytes, myelocytes and metamyelocytes) > 1% indicates that a LEFT SHIFT is Present. Ketones Test strip Ql (U)Ord ered By: Jose Goldberg on 11-13-2024 Ketones Ql (U) Negative Negative [facility] MCV (mean corpuscular volume ) determinationOrdered By: Jose Goldberg on 11-13-2024 MCV (RBC) [Entitic vol] 90.1 fL 81-99 [facility] Mean corpuscular hemoglobin (MCH) determinationOrdered By: Jose Goldberg on 11-13-2024 MCH (RBC) [Entitic mass] 29.1 pg 27.0-32.0 [facility] Mean corpuscular hemoglobin concentration (MCHC) determinationOrdered By: Jose Goldberg on 11-13-2024 MCHC (RBC) [Mass/Vol] 32.3 g/dL 32-36 [place] Mean platelet volume determi nationOrdered By: Jose Goldberg on 11-13-2024 Platelet mean volume (Bld) [Entitic vol] 9.7 fL 6.2-12.0 [facility] Microscopic analysis of urin e for red blood cells (RBC)Ordered By: Jose Goldberg on 11-13-2024 Microscopic analysis of urine for red blood cells (RBC) 0 SEEN /hpf 0-5 [facility] Monocyte percentageOrdered B y: Jose Goldberg on 11-13-2024 Monocytes/100 WBC (Bld) 8.8 % 0-10 [facility] Mucus LM Ql (Urine sed)Order ed By: Jose Goldberg on 11-13-2024 Mucus Ql (Urine sed) 0 SEEN /hpf [place] Neutrophil percentageOrdered By: Jose Goldberg on 11-13-2024 Neutrophils/100 WBC (Bld) 61.4 % 47-70 [facility] Nitrite Test strip Ql (U)Ord ered By: Jose Goldberg on 11-13-2024 Nitrite Ql (U) Negative Negative [facility] Nucleated red blood cell per centageOrdered By: Jose Goldberg on 11-13-2024 Nucleated RBC/100 WBC (Bld) [Ratio] 0 % 0-5 [facility] Platelet countOrdered By: Skyla Goldberg on 11-13-2024 Platelets (Bld) [#/Vol] 295 10*3/uL 150-450 [facility] Potassium measurement (mass/ volume)Ordered By: Jose Goldberg on 11-13-2024 Potassium (Unsp spec) [Mass/Vol] 4.3 mmol/L 3.3-5.1 [facility] Comment on above: Hemolysis present, R esults could be affected. Protein Test strip Ql (U)Ord ered By: Jose Goldberg on 11-13-2024 Protein Ql (U) 15 mg/dl High Negative [facility] RBC Auto (Bld) [#/Vol]Ordere d By: Jose Goldberg on 11-13-2024 RBC (Bld) [#/Vol] 4.16 10*6/uL Low 4.2-5.4 [facility] Serum creatinine measurement (mass/volume)Ordered By: Jose Goldberg on 11-13-2024 Creatinine [Mass/Vol] 0.96 mg/dL 0.70-1.20 [place] Serum glucose measurement (m ass/volume)Ordered By: Jose Goldberg on 11-13-2024 Glucose [Mass/Vol] 122 mg/dL High 70-99 [facility] Serum or plasma calcium franklin urement (mass/volume)Ordered By: Jose Goldberg on 11-13-2024 Calcium [Mass/Vol] 9.3 mg/dL 7.6-11.0 [facility] Serum or plasma urea nitroge n measurement (mass/volume)Ordered By: Jose Goldberg on 11-13-2024 Urea nitrogen [Mass/Vol] 22 mg/dL High 4-19 [facility] Sodium levelOrdered By: Jermaine Goldberg on 11-13-2024 Sodium [Moles/Vol] 139 mmol/L 133-145 [facility] Squamous epithelial cells de tection in urine sediment by light microscopyOrdered By: Jose Goldberg on 11-13-2024 Epithelial cells.squamous LM Ql (Urine sed) 5-10 SEEN /hpf 5-10 [facility] Urine clarityOrdered By: Inna Goldberg on 11-13-2024 Clarity (U) Clear Clear [facility] Urine color determinationOrd ered By: Jose Goldberg on 11-13-2024 Color (U) Yellow Yellow [facility] Urine glucose detectionOrder ed By: Jose Goldberg on 11-13-2024 Glucose Ql (U) Normal mg/dl Normal [facility] Urine leukocyte esterase det ection by dipstickOrdered By: Jose Goldberg on 11-13-2024 Leukocyte esterase Test strip Ql (U) Negative Negative [facility] Urine pHOrdered By: Jose Goldberg on 11-13-2024 pH (U) 6.5 [pH] 5.0 - 8.0 [facility] Urine sediment bacteria coun t by microscopy (number/high power field)Ordered By: Jose Goldberg on 11-13-2024 Bacteria LM.HPF (Urine sed) [#/Area] RARE /hpf None Seen [facility] Urine specific gravity measu rementOrdered By: Jose Goldberg on 11-13-2024 Specific gravity (U) [Rel density] 1.010 1.002-1.030 [facility] Urine urobilinogen measureme ntOrdered By: Jose Goldberg on 11-13-2024 Urobilinogen Ql (U) Normal mg/dl Normal [place] White blood cell (WBC) count Ordered By: Jose Goldberg on 11-13-2024 WBC (Bld) [#/Vol] 9.6 10*3/uL 4.4-11.0 [facility] White blood cell countOrdere d By: Jose Goldberg on 11-13-2024 White blood cell count 0-5 SEEN /hpf 0-5 [facility] ECG COMPLETEon 11-04-2024 Atrial Rate 63 BPM [facility] Calculated P [place] 16 degrees [facility] Calculated R [place] -81 degrees [facility] Calculated T [place] 24 degrees [facility] P-R Interval 118 ms [facility] QRS Duration 118 ms [facility] QT Interval 452 ms [facility] QTC Calculation (Bazett) 462 ms [facility] Ventricular Rate 63 BPM [facility] ATRIAL-SENSED VENTRICULAR-PACED RHYTHM WITH OCCASIONAL SINUS COMPLEXES ABNORMAL ECG Confirmed by GREGORIA MERCADO MD ([id number]) on 11/04/2024 1:01:22 PM [facility] NAME : SANDRA SCHMITZ PID : [id number] : 1945 Gender : Female Race : ORD : [id number] Procedure Date : Nov 03 2024 14:14:06 Edit Date : Nov 04 2024 13:01:29 Diagnosis: ATRIAL-SENSED VENTRICULAR-PACED RHYTHM WITH OCCASIONAL SINUS COMPLEXES ABNORMAL ECG Confirmed by GREGORIA MERCADO MD ([id number]) on 11/04/2024 1:01:22 PM Test Reason : I42.8 Nonischemic cardiomyopathy (HCC) [facility] Overread By : GREGORIA MERCADO MD Edited By : GREGORIA MERCADO MD Referred By : DEANN Acquired by : LISANDRO, [facility] CNOVon 11-03-2024 CNOV Office Visit (CARDFV ) ----- SANDRA SCHMITZ ([id number]) 1945 F Date Time Provider Department 11/03/24 3:45 PM HOLTER/EVENT MONITOR EDENILSON WALLACE During your visit today, we recorded the following information about you: Dilcia Hooks MA 11/03/2024 3:58 PM Signed EVENT MONITOR DISPOSABLE PATCH INSTRUCTIONS Patient Name: Sandra Schmitz [facility] Number: [id number] Skin prepped and cleansed with alcohol Patch secured to prepped area Monitor Activated Serial #: [id number] Patient Instructed: Prescribed order timeframe Bathing guidelines Usage of event button and diary documentation Return of monitor at the end of prescribed order Call with problems [phone] or [phone]. [phone] Patient expresses a good understanding of instructions Dilcia oHoks MA Allergies As of Date: 11/03/2024 Noted Allergy Reaction EMILIO INHIBITORS 05/03/2020 5 - Intolerance Comments: Short of breath, symptoms of heart failure BETA-BLOCKERS (BETA-ADRENERGIC BL*05/03/2020 5 - Intolerance Comments: Short of breath, symptoms of heart failure AUGMENTIN (AMOXICILLIN-POT CLAVUL*01/23/2013 8 - GI Upset CODEINE 10/24/2012 1 - Mental Status Change Comments: Patient felt like she was made out of lead ENTRESTO (SACUBITRIL-VALSARTAN) 02/07/2024 5 - Intolerance LIPITOR (ATORVASTATIN) 05/05/2020 17 - Myalgia Comments: Muscle aches SULFA (SULFONAMIDE ANTIBIOTICS) 04/28/2020 5 - Intolerance AMLODIPINE 04/28/2020 5 - Intolerance Comments: lightheaded Date Reviewed: 11/03/2024 Reviewed by: Dilcia Hooks MA - Fully Assessed Primary Visit Diagnosis:Cardiac resynchronization therapy defibrillator (CUT PLUG PACKER-D) in place [Z95.810] Prescriptions as of 11/03/2024 - metoprolol succinate ER (TOPROL XL) 25 mg 24 hr tablet Take 2 tablets by mouth daily at bedtime. - levothyroxine (LEVOXYL) 100 mcg tablet Take 1 tablet by mouth daily before breakfast. - potassium chloride (K-TAB) 10 mEq tablet Take 1 tablet by mouth once daily. - furosemide (LASIX) 20 mg tablet Take 1 tablet by mouth once daily. - losartan (COZAAR) 25 mg tablet Take 1 tablet by mouth once daily. - aluminum-magnesium hydroxide-simethicone 200-200-20 mg/5 mL suspension Take 30 mL by mouth every 6 hours as needed. - dicyclomine (BENTYL) 10 mg capsule Take 1 capsule by mouth three times a day as needed (abdominal pain) for up to 20 doses. - acetaminophen (TYLENOL) 500 mg tablet Take 2 tablets by mouth every 8 hours as needed for pain. - cyanocobalamin (VITAMIN B-12) 1,000 mcg tab Take 1 tablet by mouth once daily. - Cholecalciferol, Vitamin D3, 50 mcg (2,000 unit) cap Take 2 capsules by mouth once daily. - aspirin, enteric coated (ECOTRIN LOW STRENGTH) 81 mg EC tablet Take 1 tablet by mouth once daily. Problem List As Of Date 11/03/2024 Noted Resolved IBS (irritable bowel syndrome) [K58.9] 01/23/2013 Palpitations [R00.2] 12/16/2014 Obesity, Class I, BMI 30-34.9 [E66.811] 03/10/2020 Shortness of breath [R06.02] 05/03/2020 06/14/2020 Acute on chronic systolic CHF (congestive heart*05/03/2020 Homozygous Factor V Leiden mutation (HCC) [D68.*05/03/2020 Hypothyroidism [E03.9] 01/24/2018 Chest pain [R07.9] 05/03/2020 06/14/2020 Post-operative state [Z98.890] 05/24/2020 06/14/2020 Rectocele [N81.6] 05/25/2020 Cystocele, midline [N81.11] 05/25/2020 Aspiration pneumonia (HCC) [J69.0] 05/30/2020 09/22/2020 Acute acalculous cholecystitis [K81.0] 05/30/2020 Primary hypertension [I10] 06/14/2020 Acute idiopathic gout involving toe of left cristal*09/22/2020 Diverticulitis [K57.92] 09/29/2020 Hypokalemia [E87.6] 09/29/2020 Hospital discharge follow-up [Z09] 12/06/2020 Tubular adenoma of colon [D12.6] 12/09/2020 Mixed hyperlipidemia [E78.2] 12/29/2020 Chronic pain of right ankle [M25.571, G89.29] 12/29/2020 Kidney insufficiency [N28.9] 12/29/2020 Chronic systolic congestive heart failure (HCC)*02/14/2021 Valvular heart disease [I38] 04/06/2021 Colon cancer screening [Z12.11] 04/06/2021 Left bundle branch block [I44.7] 05/23/2021 Left shoulder pain [M25.512] 07/11/2021 Lateral epicondylitis of left elbow [M77.12] 07/11/2021 Cardiomegaly [I51.7] 02/13/2022 Chronic bilateral thoracic back pain [M54.6, G8*07/18/2022 Rib pain on right side [R07.81] 07/18/2022 Somatic dysfunction of rib [M99.08] 07/18/2022 Somatic dysfunction of spine, thoracic [M99.02] 07/18/2022 Somatic dysfunction of spine, cervical [M99.01] 07/18/2022 Foot drop, right [M21.371] 08/02/2022 Arthrosis of ankle, right [M19.071] 08/02/2022 Coronary artery disease involving [place] lopez*08/02/2022 Vitamin D deficiency [E55.9] 08/02/2022 Somatic dysfunction of head region [M99.00] 08/10/2022 Chronic neck pain [M54.2, G89.29] 08/24/2022 Chronic bronchitis (HCC) [J42] 09/11/2022 SVT (supraventricular tachycardia) (HCC) [I47.1*09/11/2022 Combined systolic and diastoli (more content not included)... [facility] CNOV Office Visit (CACHFV ) ----- SANDRA SCHMITZ ([id number]) 1945 F Date Time Provider Department 11/03/24 3:30 PM PILI WELLS During your visit today, we recorded the following information about you: Pulse Blood pressure Weight Height 67/minute 126/85 88.1 kg 1.626 m Pili Wells MD 11/03/2024 2:44 PM Signed Thank you for your visit. It was great to see you today! PLEASE READ ALL THE INSTRUCTIONS Medication changes: Increase toprol Xl to 50mg at bedtime Blood tests: none Referral to other specialties: Additional Testing: Follow up Visit: 6 months Other instructions: Engage in 30 minutes of continuous exercise at least 4 days per week if you can tolerate Please take your blood pressures, heart rate, and weight daily. Please notify us via Vastech if your Systolic BP (top number) < 90 or > 150 consistently. Please record these values and bring them during your next clinic visit so we can adjust your medications appropriately. If blood work or testing is done at an outside facility please send us a message to clarify if we have received the labs. If you have not heard from us regarding lab work or follow up testing please send us a message to ensure that we have received the tests. If you notice a 3 lbs weight gain within 3 days, please call our office for further instructions. Limit the amount of salt intake to less than 2 grams (or 2000 mg) and fluid intake to less than 2 liters (~60 ounces) a day. Please notify if you have any change in medical conditions/new diagnosis/hospitalization s. Your medications may interact with new medication or new diagnosis. Please notify your providers to check/monitor for interractions Avoid NSAIDS- Ibuprofen, aleve, motrin inview of heart kidney injury risk Please send a QuadROI message or call with any questions or concerns: Outpatient Number: [phone] Thank you, Pili Wells MD [facility] [place] [address] For [facility] patients , contact: [facility]- Section Of Heart Failure and Cardiac Transplant Medicine [facility] [place] [facility] - Desk [phone] Nurse Line and for Refills- call [phone] [facility] Scheduling Line- to make appointments- call [phone] Pili Wells MD 11/09/2024 5:30 PM Signed [facility] [place] [facility] SECTION OF HEART FAILURE and CARDIAC TRANSPLANT MEDICINE [facility] OUTPATIENT VISIT DATE November 03, 2024 OUTPATIENT VISIT TYPE Established PRIMARY CARE PHYSICIAN: Mandeep Houser [address] [place] [address] CHIEF COMPLAINT: Follow Up HISTORY OF PRESENT ILLNESS: Sandra Schmitz is a 78 year old female with a medical history that includes non-ischemic CM, HTN, Hypothyroidism, LBBB s/p CUT PLUG PACKER-D who is referred to me for heart failure management. Sandra Schmitz was initially diagnosed with non-ischemic CM ~ 4 yrs ago and was doing well on losartan and metoprolol. She had progressive sxs of dyspnea on exertion, therefore she was started on entresto and farxiga and her sxs persisted and she was admitted locally in [place] and then transferred to for CUT PLUG PACKER consideration. Interval History: Sandra Schmitz was last seen in this clinic on 01/15/24. Since the last visit Sandra Schmitz, has done well. On follow up today, she reports feeling well. She mentions that she has had a few episodes where she feels like she gets more short of breath and cannot quite catch herself but occurs infrequently. No LE edema, no orthopnea, no PND, no abdominal bloating/distention, no LH, no syncope, no device shocks. Scoliosis +, no carpal tunnel, no spinal stenosis. Weight on home scale: 188-190 lbs. Weight stable here. Activity/Exercise: continuing to stay active doing things. Home BP: not checking. 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 Echo 06/2023: LVEF 26%, LVEDd 5.8cm, RV wnl Echo 09/2022: LVEF 30%, LVEDd 4.6cm, RV wnl Echo 02/2022: LVEF 30%, RV wnl Echo 04/2020: LVEF 40%, LVEdd 4.8cm. LBBB: chronic. S/p CUT PLUG PACKER 07/2023 Non-obstructive CAD: stable, ischemic testing recently with no ischemia or infarction. 06/2023 Nuc SPECT: no ischemia or infarction. 10/2021 Cath: mod LAD, D1 prox 40%, mild RCA disease dominant, EF 35%. Hx of HTN: PAST MEDICAL HISTORY Diagnosis Date Acute acalculous cholecystitis 05/30/2020 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 09/22/2020 Acute on chronic systolic CHF (c (more content not included)... [facility] CNOV Office Visit (CARDFV ) ----- SANDRA SCHMITZ ([id number]) 1945 F Date Time Provider Department 11/03/24 3:30 PM MORENITA HILLFV During your visit today, we recorded the following information about you: Pulse Blood pressure Weight Height 70/minute 119/71 86.2 kg 1.626 m Morenita Hill APRN.DIRECTOR OF DONOR RELATIONS 11/03/2024 3:59 PM Signed [facility] [place] [facility] Department of Cardiovascular Medicine SECTION OF ELECTROPHYSIOLOGY AND PACING OUTPATIENT VISIT DATE November 03, 2024 OUTPATIENT VISIT TYPE ESTABLISHED PRIMARY CARE PHYSICIAN: Mandeep Houser [address] [place] [address] CHIEF COMPLAINT: Follow Up HISTORY OF PRESENT ILLNESS: Ms. Schmitz is a 79 year old female, patient of Dr. Wellington and Dr. Wells who presents today for a cardiovascular medicine follow-up visit regarding CUT PLUG PACKER-D which was placed in July of last year during which time she had been admitted to [facility] for acute HFrEF and inability to initiate GDMT. She was deemed excellent candidate for CUT PLUG PACKER therapy and thus had MDT CUT PLUG PACKER-D inserted. Since then, Ms. Schmitz reports that overall she has been feeling well. She has noted over the last several months that when shh is anxious or rushing, she may feel her heart racing with some palpitations. When she rests, symptoms resolve. Overall, since device insertion, she has significantly improved functional capacity. She is compliant with all medications. PMH: Chronic NICM s/p MDT CUT PLUG PACKER-D, dyslipidemia, hypothyroidism, Factor V Leiden, IBS, h/o gout PAST MEDICAL HISTORY Diagnosis Date Acute acalculous cholecystitis 05/30/2020 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 09/22/2020 Acute on chronic systolic CHF (congestive heart failure) ([facility]) 05/03/2020 Aspiration pneumonia ([facility]) 05/30/2020 Chest pain 05/03/2020 Chest pressure 01/23/2013 Chronic diastolic congestive heart failure ([facility]) 02/14/2021 Clostridium difficile diarrhea 09/28/2020 Complete uterovaginal prolapse Cystocele, midline Essential hypertension 06/14/2020 Homozygous Factor V Leiden mutation ([facility]) 05/03/2020 Hypothyroidism IBS (irritable bowel syndrome) 01/23/2013 Palpitation CHRONIC Post-operative state 05/24/2020 Rectocele 05/25/2020 Shortness of breath 05/03/2020 Status post laparoscopic hysterectomy 05/30/2020 Tubular adenoma of colon 12/09/2020 Uterine prolapse 05/03/2020 PAST SURGICAL HISTORY Procedure Laterality Date COLONOSCOPY 01/07/2015 COLONOSCOPY 12/05/2021 repeat in 5 years COLONOSCOPY GEN ANES 12/06/2009 X3 LAST ONE IN 2009 EGD 11/08/2012 EGD 12/05/2021 INSERT/REPL DEFIB LEAD/GENER OTHR 07/2023 w/ Pacemaker PAST SURGICAL HISTORY OF 05/14/1999 left foot bunionectomy w/screws PAST SURGICAL HISTORY OF 05/14/1981 ectopic w/tube removal PAST SURGICAL HISTORY OF 2009 CYST REMOVED FROM UTERUS PAST SURGICAL HISTORY OF 05/24/2020 TVH, partial colpectomy, anterior colporrhaphy, Dennis transobturator midurethral sling, cystourethroscopy, rectocele repair with perineorrhaphy, laparoscopic lysis of adhesions and excision of bilateral adnexal structures PAST SURGICAL HISTORY OF 09/07/2020 Laparoscopic cholecystectomy with intraoperative cholangiograms. Dr. Ragsdale SOCIAL HISTORY Social History Tobacco Use Smoking status: Former Current packs/day: 0.00 Types: Cigarettes Quit date: 10/22/2002 Years since quittin.0 Smokeless tobacco: Never Vaping Use Vaping status: Never Used Substance Use Topics Alcohol use: No Drug use: No FAMILY HISTORY Problem Relation Age of Onset Blood Disease Mother Coronary Artery Disease Mother Cancer Mother lung Blood Disease Father Coronary Artery Disease Father Heart Father pacemaker Diabetes Father Breast Cancer Sister younger sis. COPD Brother Hypertension Brother Heart disease Brother Coronary Artery Disease Maternal Grandmother Ischemic Heart Disease Maternal Grandfather Coronary Artery Disease Maternal Grandfather Coronary Artery Disease Daughter ALLERGIES Allergen Reactions Emilio Inhibitors Intolerance Short of breath, symptoms of heart failure Beta-Blockers (Beta* Intolerance Short of breath, symptoms of heart failure Augmentin [Amoxicil* GI Upset Codeine Mental Status Change Patient felt like she was made out of lead Entresto [Sacubitri* Intolerance Lipitor [Atorvastat* Myalgia Muscle aches Sulfa (Sulfonamide * Intolerance Amlodipine Intolerance lightheaded MEDICATIONS: levothyroxine (LEVOXYL) 100 mcg tablet Take 1 tablet by mouth daily before breakfast. metoprolol succinate ER (TOPROL XL) 25 mg 24 hr tablet Take 1 tablet by mouth daily at bedtime. potassium chloride (K-TAB) 10 mEq tablet Take 1 tablet by mouth once daily. furosemide (LASIX) 20 mg tablet Take 1 tablet by mouth once daily (more content not included)... [facility] ECG COMPLETEon 11-03-2024 ECG COMPLETE Ventricular Rate : 5 6 BPM Atrial Rate : 56 BPM P-R Interval : 122 ms QRS Duration : 124 ms Q-T Interval : 478 ms QTC Calculation(Bazett) : 461 ms Calculated P [place] : 36 degrees Calculated R [place] : -50 degrees Calculated T [place] : 89 degrees ATRIAL-SENSED VENTRICULAR-PACED RHYTHM ABNORMAL ECG Confirmed by GREGORIA MERCADO MD ([id number]) on 11/04/2024 1:01:15 PM NAME : SANDRA SCHMITZ PID : [id number] : 1945 Gender : Female Race : ORD : [id number] Procedure Date : Nov 03 2024 15:09:38 Edit Date : Nov 04 2024 13:01:17 Diagnosis: ATRIAL-SENSED VENTRICULAR-PACED RHYTHM ABNORMAL ECG Confirmed by GREGORIA MERCADO MD ([id number]) on 11/04/2024 1:01:15 PM Test Reason : Z95.810 Cardiac resynchronization therapy defibrillator (CUT PLUG PACKER-D) in place Location : 225 : [facility] Overread By : GREGORIA MERCADO MD Edited By : GREGORIA MERCADO MD Referred By : JERED Acquired by : Terrie GRANT [facility] ECG COMPLETE Ventricular Rate : 6 3 BPM Atrial Rate : 63 BPM P-R Interval : 118 ms QRS Duration : 118 ms Q-T Interval : 452 ms QTC Calculation(Bazett) : 462 ms Calculated P [place] : 16 degrees Calculated R [place] : -81 degrees Calculated T [place] : 24 degrees ATRIAL-SENSED VENTRICULAR-PACED RHYTHM WITH OCCASIONAL SINUS COMPLEXES ABNORMAL ECG Confirmed by GREGORIA MERCADO MD ([id number]) on 11/04/2024 1:01:22 PM NAME : SANDRA SCHMITZ PID : [id number] : 1945 Gender : Female Race : ORD : [id number] Procedure Date : Nov 03 2024 14:14:06 Edit Date : Nov 04 2024 13:01:29 Diagnosis: ATRIAL-SENSED VENTRICULAR-PACED RHYTHM WITH OCCASIONAL SINUS COMPLEXES ABNORMAL ECG Confirmed by GREGORIA MERCADO MD ([id number]) on 11/04/2024 1:01:22 PM Test Reason : I42.8 Nonischemic cardiomyopathy (HCC) Location : 225 : [facility] Overread By : GREGORIA MERCADO MD Edited By : GREGORIA MERCADO MD Referred By : DEANN Acquired by : Terrie MCMAHON [facility] CNOVon 10-21-2024 CNOV Office Visit (FAMPWS ) ----- SANDRA SCHMITZ ([id number]) 1945 F Date Time Provider Department 10/21/24 3:20 PM MANDEEP HOUSER [facility] During your visit today, we recorded the following information about you: Mandeep Houser DO 10/22/2024 7:32 AM Signed CC: Sandraeben Schmitz is a 79 year old female who presents to the office for OMT HPI: Acute on chronic back pain, started a few weeks ago with significant mid to lower back pain. Has been up doing a lot around her home. Otherwise doesn't know what started or triggered her symptoms, no new bowel or bladder changes. Pain is worse when moving from sitting to standing or with standing or walking. No trauma that she is aware of. Pain was previously severe, had been taking tylenol and using ice and heating pad without relief of symptoms. She is not able to take NSAIDs. Has been doing a lot of new exercise with cardiac rehab which has been held since her back pain flare up. Had improvements after her OMT . She states that she is currently doing much better with her pain flare up- now just mild thoracic and neck and low back discomfort with prolonged standing and walking. PAST MEDICAL HISTORY Diagnosis Date Acute acalculous cholecystitis 05/30/2020 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 09/22/2020 Acute on chronic systolic CHF (congestive heart failure) ([facility]) 05/03/2020 Aspiration pneumonia ([facility]) 05/30/2020 Chest pain 05/03/2020 Chest pressure 01/23/2013 Chronic diastolic congestive heart failure ([facility]) 02/14/2021 Clostridium difficile diarrhea 09/28/2020 Complete uterovaginal prolapse Cystocele, midline Essential hypertension 06/14/2020 Homozygous Factor V Leiden mutation ([facility]) 05/03/2020 Hypothyroidism IBS (irritable bowel syndrome) 01/23/2013 Palpitation CHRONIC Post-operative state 05/24/2020 Rectocele 05/25/2020 Shortness of breath 05/03/2020 Status post laparoscopic hysterectomy 05/30/2020 Tubular adenoma of colon 12/09/2020 Uterine prolapse 05/03/2020 PAST SURGICAL HISTORY Procedure Laterality Date COLONOSCOPY 01/07/2015 COLONOSCOPY 12/05/2021 repeat in 5 years COLONOSCOPY GEN ANES 12/06/2009 X3 LAST ONE IN 2009 EGD 11/08/2012 EGD 12/05/2021 INSERT/REPL DEFIB LEAD/GENER OTHR 07/2023 w/ Pacemaker PAST SURGICAL HISTORY OF 05/14/1999 left foot bunionectomy w/screws PAST SURGICAL HISTORY OF 05/14/1981 ectopic w/tube removal PAST SURGICAL HISTORY OF 2009 CYST REMOVED FROM UTERUS PAST SURGICAL HISTORY OF 05/24/2020 TVH, partial colpectomy, anterior colporrhaphy, Dennis transobturator midurethral sling, cystourethroscopy, rectocele repair with perineorrhaphy, laparoscopic lysis of adhesions and excision of bilateral adnexal structures PAST SURGICAL HISTORY OF 09/07/2020 Laparoscopic cholecystectomy with intraoperative cholangiograms. Dr. Ragsdale Current Outpatient Medications Medication Sig levothyroxine (LEVOXYL) 100 mcg tablet Take 1 tablet by mouth daily before breakfast. metoprolol succinate ER (TOPROL XL) 25 mg 24 hr tablet Take 1 tablet by mouth daily at bedtime. potassium chloride (K-TAB) 10 mEq tablet Take 1 tablet by mouth once daily. furosemide (LASIX) 20 mg tablet Take 1 tablet by mouth once daily. losartan (COZAAR) 25 mg tablet Take 1 tablet by mouth once daily. aluminum-magnesium hydroxide-simethicone 200-200-20 mg/5 mL suspension Take 30 mL by mouth every 6 hours as needed. dicyclomine (BENTYL) 10 mg capsule Take 1 capsule by mouth three times a day as needed (abdominal pain) for up to 20 doses. acetaminophen (TYLENOL) 500 mg tablet Take 2 tablets by mouth every 8 hours as needed for pain. cyanocobalamin (VITAMIN B-12) 1,000 mcg tab Take 1 tablet by mouth once daily. Cholecalciferol, Vitamin D3, 50 mcg (2,000 unit) cap Take 2 capsules by mouth once daily. aspirin, enteric coated (ECOTRIN LOW STRENGTH) 81 mg EC tablet Take 1 tablet by mouth once daily. No current facility-administered medications for this visit. ALLERGIES Allergen Reactions Emilio Inhibitors Intolerance Short of breath, symptoms of heart failure Beta-Blockers (Beta* Intolerance Short of breath, symptoms of heart failure Augmentin [Amoxicil* GI Upset Codeine Mental Status Change Patient felt like she was made out of lead Entresto [Sacubitri* Intolerance Lipitor [Atorvastat* Myalgia Muscle aches Sulfa (Sulfonamide * Intolerance Amlodipine Intolerance lightheaded Social History Tobacco Use Smoking status: Former Current packs/day: 0.00 Types: Cigarettes Quit date: 10/22/2002 Years since quittin.0 Smokeless tobacco: Never Vaping Use Vaping status: Never Used Substance Use Topics Alcohol use: No Drug use: No ROS: See HPI PE: There were no vitals taken for this visit. Gen: AANDOX3, she appears uncomfortable HEENT: PERRLA, EOMs intact b/l, nares without drainage, (more content not included)... [facility] CNOVon 09-30-2024 CNOV Office Visit (FAMPWS ) ----- SANDRA SCHMITZ ([id number]) 1945 F Date Time Provider Department 09/30/24 2:00 PM [facility]EP [facility] During your visit today, we recorded the following information about you: aMndeep Houser, 09/30/2024 4:51 PM Signed CC: Sandra Schmitz is a 79 year old female who presents to the office for OMT HPI: Acute on chronic back pain, started yesterday with significant mid to lower back pain. Has been up doing a lot around her home. Otherwise doesn't know what started or triggered her symptoms, no new bowel or bladder changes. Pain is worse when moving from sitting to standing or with standing or walking. No trauma that she is aware of. Pain is severe, has been taking tylenol and using ice and heating pad without relief of symptoms. She is not able to take NSAIDs. Has been doing a lot of new exercise with cardiac rehab which has been held since her back pain flare up. Had improvements after her OMT. Last seen on 08/25 PAST MEDICAL HISTORY Diagnosis Date Acute acalculous cholecystitis 05/30/2020 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 09/22/2020 Acute on chronic systolic CHF (congestive heart failure) ([facility]) 05/03/2020 Aspiration pneumonia ([facility]) 05/30/2020 Chest pain 05/03/2020 Chest pressure 01/23/2013 Chronic diastolic congestive heart failure ([facility]) 02/14/2021 Clostridium difficile diarrhea 09/28/2020 Complete uterovaginal prolapse Cystocele, midline Essential hypertension 06/14/2020 Homozygous Factor V Leiden mutation ([facility]) 05/03/2020 Hypothyroidism IBS (irritable bowel syndrome) 01/23/2013 Palpitation CHRONIC Post-operative state 05/24/2020 Rectocele 05/25/2020 Shortness of breath 05/03/2020 Status post laparoscopic hysterectomy 05/30/2020 Tubular adenoma of colon 12/09/2020 Uterine prolapse 05/03/2020 PAST SURGICAL HISTORY Procedure Laterality Date COLONOSCOPY 01/07/2015 COLONOSCOPY 12/05/2021 repeat in 5 years COLONOSCOPY GEN ANES 12/06/2009 X3 LAST ONE IN 2009 EGD 11/08/2012 EGD 12/05/2021 INSERT/REPL DEFIB LEAD/GENER OTHR 07/2023 w/ Pacemaker PAST SURGICAL HISTORY OF 05/14/1999 left foot bunionectomy w/screws PAST SURGICAL HISTORY OF 05/14/1981 ectopic w/tube removal PAST SURGICAL HISTORY OF 2009 CYST REMOVED FROM UTERUS PAST SURGICAL HISTORY OF 05/24/2020 TVH, partial colpectomy, anterior colporrhaphy, Dennis transobturator midurethral sling, cystourethroscopy, rectocele repair with perineorrhaphy, laparoscopic lysis of adhesions and excision of bilateral adnexal structures PAST SURGICAL HISTORY OF 09/07/2020 Laparoscopic cholecystectomy with intraoperative cholangiograms. Dr. Ragsdale Current Outpatient Medications Medication Sig metoprolol succinate ER (TOPROL XL) 25 mg 24 hr tablet Take 1 tablet by mouth daily at bedtime. potassium chloride (K-TAB) 10 mEq tablet Take 1 tablet by mouth once daily. furosemide (LASIX) 20 mg tablet Take 1 tablet by mouth once daily. levothyroxine (LEVOXYL) 100 mcg tablet Take 1 tablet by mouth daily before breakfast. losartan (COZAAR) 25 mg tablet Take 1 tablet by mouth once daily. aluminum-magnesium hydroxide-simethicone 200-200-20 mg/5 mL suspension Take 30 mL by mouth every 6 hours as needed. dicyclomine (BENTYL) 10 mg capsule Take 1 capsule by mouth three times a day as needed (abdominal pain) for up to 20 doses. acetaminophen (TYLENOL) 500 mg tablet Take 2 tablets by mouth every 8 hours as needed for pain. cyanocobalamin (VITAMIN B-12) 1,000 mcg tab Take 1 tablet by mouth once daily. Cholecalciferol, Vitamin D3, 50 mcg (2,000 unit) cap Take 2 capsules by mouth once daily. aspirin, enteric coated (ECOTRIN LOW STRENGTH) 81 mg EC tablet Take 1 tablet by mouth once daily. No current facility-administered medications for this visit. ALLERGIES Allergen Reactions Emilio Inhibitors Intolerance Short of breath, symptoms of heart failure Beta-Blockers (Beta* Intolerance Short of breath, symptoms of heart failure Augmentin [Amoxicil* GI Upset Codeine Mental Status Change Patient felt like she was made out of lead Entresto [Sacubitri* Intolerance Lipitor [Atorvastat* Myalgia Muscle aches Sulfa (Sulfonamide * Intolerance Amlodipine Intolerance lightheaded Social History Tobacco Use Smoking status: Former Current packs/day: 0.00 Types: Cigarettes Quit date: 10/22/2002 Years since quittin.9 Smokeless tobacco: Never Vaping Use Vaping status: Never Used Substance Use Topics Alcohol use: No Drug use: No ROS: See HPI PE: There were no vitals taken for this visit. Gen: AANDOX3 HEENT: PERRLA, EOMs intact b/l, nares without drainage, pharynx without erythema, exudate, lesions, or drainage. Uvula midline. Neck: supple, No cervical LAD, no thyromegaly, no carotid bruits, suboccipital fullness right head, [id number] Left poste (more content not included)... [facility] CNPNon 08-27-2024 [facility] ----- SANDRA SCHMITZ ([id number]) 1945 F Date Time Provider Department 08/27/24 DILCIA [facility] During your visit today, we recorded the following information about you: Radha Buchanan 08/27/2024 10:21 AM Signed ----- Message from Dilcia Bonilla MD sent at 08/23/2024 9:30 AM EDT ----- I saw her in '24 Please reschedule with [facility] + device Radha Buchanan 08/27/2024 10:22 AM Signed Call to patient to r/s. Patient is driving out from [place] and would prefer all appointments same day as Dr. Wells. Rescheduled to Friday 11/03 with device check, OV with Moren[facility] and Dr. Wells. Allergies As of Date: 08/27/2024 Noted Allergy Reaction EMILIO INHIBITORS 05/03/2020 5 - Intolerance Comments: Short of breath, symptoms of heart failure BETA-BLOCKERS (BETA-ADRENERGIC BL*05/03/2020 5 - Intolerance Comments: Short of breath, symptoms of heart failure AUGMENTIN (AMOXICILLIN-POT CLAVUL*01/23/2013 8 - GI Upset CODEINE 10/24/2012 1 - Mental Status Change Comments: Patient felt like she was made out of lead ENTRESTO (SACUBITRIL-VALSARTAN) 02/07/2024 5 - Intolerance LIPITOR (ATORVASTATIN) 05/05/2020 17 - Myalgia Comments: Muscle aches SULFA (SULFONAMIDE ANTIBIOTICS) 04/28/2020 5 - Intolerance AMLODIPINE 04/28/2020 5 - Intolerance Comments: lightheaded Date Reviewed: 07/21/2024 Reviewed by: Kelsey Costa LPN - Fully Assessed Prescriptions as of 08/27/2024 - furosemide (LASIX) 20 mg tablet Take 1 tablet by mouth once daily. - levothyroxine (LEVOXYL) 100 mcg tablet Take 1 tablet by mouth daily before breakfast. - losartan (COZAAR) 25 mg tablet Take 1 tablet by mouth once daily. - aluminum-magnesium hydroxide-simethicone 200-200-20 mg/5 mL suspension Take 30 mL by mouth every 6 hours as needed. - dicyclomine (BENTYL) 10 mg capsule Take 1 capsule by mouth three times a day as needed (abdominal pain) for up to 20 doses. - metoprolol succinate ER (TOPROL XL) 25 mg 24 hr tablet Take 1 tablet by mouth daily at bedtime. - acetaminophen (TYLENOL) 500 mg tablet Take 2 tablets by mouth every 8 hours as needed for pain. - cyanocobalamin (VITAMIN B-12) 1,000 mcg tab Take 1 tablet by mouth once daily. - Cholecalciferol, Vitamin D3, 50 mcg (2,000 unit) cap Take 2 capsules by mouth once daily. - aspirin, enteric coated (ECOTRIN LOW STRENGTH) 81 mg EC tablet Take 1 tablet by mouth once daily. Problem List As Of Date 08/27/2024 Noted Resolved IBS (irritable bowel syndrome) [K58.9] 01/23/2013 Palpitations [R00.2] 12/16/2014 Obesity, Class I, BMI 30-34.9 [E66.811] 03/10/2020 Shortness of breath [R06.02] 05/03/2020 06/14/2020 Acute on chronic systolic CHF (congestive heart*05/03/2020 Homozygous Factor V Leiden mutation (HCC) [D68.*05/03/2020 Hypothyroidism [E03.9] 01/24/2018 Chest pain [R07.9] 05/03/2020 06/14/2020 Post-operative state [Z98.890] 05/24/2020 06/14/2020 Rectocele [N81.6] 05/25/2020 Cystocele, midline [N81.11] 05/25/2020 Aspiration pneumonia (HCC) [J69.0] 05/30/2020 09/22/2020 Acute acalculous cholecystitis [K81.0] 05/30/2020 Primary hypertension [I10] 06/14/2020 Acute idiopathic gout involving toe of left cristal*09/22/2020 Diverticulitis [K57.92] 09/29/2020 Hypokalemia [E87.6] 09/29/2020 Hospital discharge follow-up [Z09] 12/06/2020 Tubular adenoma of colon [D12.6] 12/09/2020 Mixed hyperlipidemia [E78.2] 12/29/2020 Chronic pain of right ankle [M25.571, G89.29] 12/29/2020 Kidney insufficiency [N28.9] 12/29/2020 Chronic systolic congestive heart failure (HCC)*02/14/2021 Valvular heart disease [I38] 04/06/2021 Colon cancer screening [Z12.11] 04/06/2021 Left bundle branch block [I44.7] 05/23/2021 Left shoulder pain [M25.512] 07/11/2021 Lateral epicondylitis of left elbow [M77.12] 07/11/2021 Cardiomegaly [I51.7] 02/13/2022 Chronic bilateral thoracic back pain [M54.6, G8*07/18/2022 Rib pain on right side [R07.81] 07/18/2022 Somatic dysfunction of rib [M99.08] 07/18/2022 Somatic dysfunction of spine, thoracic [M99.02] 07/18/2022 Somatic dysfunction of spine, cervical [M99.01] 07/18/2022 Foot drop, right [M21.371] 08/02/2022 Arthrosis of ankle, right [M19.071] 08/02/2022 Coronary artery disease involving [place]*08/02/2022 Vitamin D deficiency [E55.9] 08/02/2022 Somatic dysfunction of head region [M99.00] 08/10/2022 Chronic neck pain [M54.2, G89.29] 08/24/2022 Chronic bronchitis (HCC) [J42] 09/11/2022 SVT (supraventricular tachycardia) (HCC) [I47.1*09/11/2022 Combined systolic and diastolic cardiac dysfunc*09/11/2022 Hypothyroidism, acquired [E03.9] 04/17/2023 Acute decompensated heart failure (HCC) [I50.9] 07/10/2023 Nonischemic cardiomyopathy (HCC) [I42.8] 07/10/2023 Acute on chronic combined systolic and diastoli*07/11/2023 Bradycardia [R00.1] 07/13/2023 Acute hypoxic respiratory failure (HCC) [J96.01]07/13/19 (more content not included)... [facility] CNOVon 08-25-2024 CNOV Office Visit (FAMPWS ) ----- SANDRA SCHMITZ ([id number]) 1945 F Date Time Provider Department 08/25/24 3:40 PM MANDEEP HOUSER [facility] During your visit today, we recorded the following information about you: Mandeep HouserDO 08/25/2024 4:32 PM Signed Magnesium glycinate 250-500 mg in the evening with supper Use as a capsule or powder or tablet To help muscles Mandeep Houser, DO 08/28/2024 10:23 AM Signed CC: Sandra Schmitz is a 79 year old female who presents to the office for OMT HPI: Acute on chronic back pain, started yesterday with significant mid to lower back pain. Has been up doing a lot around her home. Otherwise doesn't know what started or triggered her symptoms, no new bowel or bladder changes. Pain is worse when moving from sitting to standing or with standing or walking. No trauma that she is aware of. Pain is severe, has been taking tylenol and using ice and heating pad without relief of symptoms. She is not able to take NSAIDs. Has been doing a lot of new exercise with cardiac rehab which has been held since her back pain flare up. Had improvements after her OMT PAST MEDICAL HISTORY Diagnosis Date Acute acalculous cholecystitis 05/30/2020 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 09/22/2020 Acute on chronic systolic CHF (congestive heart failure) ([facility]) 05/03/2020 Aspiration pneumonia ([facility]) 05/30/2020 Chest pain 05/03/2020 Chest pressure 01/23/2013 Chronic diastolic congestive heart failure ([facility]) 02/14/2021 Clostridium difficile diarrhea 09/28/2020 Complete uterovaginal prolapse Cystocele, midline Essential hypertension 06/14/2020 Homozygous Factor V Leiden mutation ([facility]) 05/03/2020 Hypothyroidism IBS (irritable bowel syndrome) 01/23/2013 Palpitation CHRONIC Post-operative state 05/24/2020 Rectocele 05/25/2020 Shortness of breath 05/03/2020 Status post laparoscopic hysterectomy 05/30/2020 Tubular adenoma of colon 12/09/2020 Uterine prolapse 05/03/2020 PAST SURGICAL HISTORY Procedure Laterality Date COLONOSCOPY 01/07/2015 COLONOSCOPY 12/05/2021 repeat in 5 years COLONOSCOPY GEN ANES 12/06/2009 X3 LAST ONE IN 2009 EGD 11/08/2012 EGD 12/05/2021 INSERT/REPL DEFIB LEAD/GENER OTHR 07/2023 w/ Pacemaker PAST SURGICAL HISTORY OF 05/14/1999 left foot bunionectomy w/screws PAST SURGICAL HISTORY OF 05/14/1981 ectopic w/tube removal PAST SURGICAL HISTORY OF 2009 CYST REMOVED FROM UTERUS PAST SURGICAL HISTORY OF 05/24/2020 TVH, partial colpectomy, anterior colporrhaphy, Dennis transobturator midurethral sling, cystourethroscopy, rectocele repair with perineorrhaphy, laparoscopic lysis of adhesions and excision of bilateral adnexal structures PAST SURGICAL HISTORY OF 09/07/2020 Laparoscopic cholecystectomy with intraoperative cholangiograms. Dr. Ragsdale Current Outpatient Medications Medication Sig furosemide (LASIX) 20 mg tablet Take 1 tablet by mouth once daily. levothyroxine (LEVOXYL) 100 mcg tablet Take 1 tablet by mouth daily before breakfast. losartan (COZAAR) 25 mg tablet Take 1 tablet by mouth once daily. aluminum-magnesium hydroxide-simethicone 200-200-20 mg/5 mL suspension Take 30 mL by mouth every 6 hours as needed. dicyclomine (BENTYL) 10 mg capsule Take 1 capsule by mouth three times a day as needed (abdominal pain) for up to 20 doses. metoprolol succinate ER (TOPROL XL) 25 mg 24 hr tablet Take 1 tablet by mouth daily at bedtime. acetaminophen (TYLENOL) 500 mg tablet Take 2 tablets by mouth every 8 hours as needed for pain. cyanocobalamin (VITAMIN B-12) 1,000 mcg tab Take 1 tablet by mouth once daily. Cholecalciferol, Vitamin D3, 50 mcg (2,000 unit) cap Take 2 capsules by mouth once daily. aspirin, enteric coated (ECOTRIN LOW STRENGTH) 81 mg EC tablet Take 1 tablet by mouth once daily. No current facility-administered medications for this visit. ALLERGIES Allergen Reactions Emilio Inhibitors Intolerance Short of breath, symptoms of heart failure Beta-Blockers (Beta* Intolerance Short of breath, symptoms of heart failure Augmentin [Amoxicil* GI Upset Codeine Mental Status Change Patient felt like she was made out of lead Entresto [Sacubitri* Intolerance Lipitor [Atorvastat* Myalgia Muscle aches Sulfa (Sulfonamide * Intolerance Amlodipine Intolerance lightheaded Social History Tobacco Use Smoking status: Former Current packs/day: 0.00 Types: Cigarettes Quit date: 10/22/2002 Years since quittin.8 Smokeless tobacco: Never Vaping Use Vaping status: Never Used Substance Use Topics Alcohol use: No Drug use: No ROS: See HPI PE: There were no vitals taken for this visit. Gen: AANDOX3, she appears uncomfortable HEENT: PERRLA, EOMs intact b/l, nares without drainage, pharynx without erythema, exudate, lesions, or drainage. Uvula midline. Neck: supple, No cervical L (more content not included)... [facility] ECHOon 08-15-2024 Echocardiography Echocardiography Rep ort: Transthoracic Echo [facility] Date of service: 08/15/2024 12:49:59 PM SPECIALIST Ordering physician: ANGEL CASTRO Indication: NICM Technologist: Teagan Murillo [facility] Interpreting physician: Gilmer Carpio MD PATIENT: Name: MRS. SANDRA SCHMITZ : 1945 Age: 79 years Gender: F History of hypertension, dyslipidemia and heart failure with hospitalization. Previous cardiovascular interventions: Other pacemaker implant Primary rhythm: sinus. Height: 160.00 cm BSA: 1.97 m Weight: 87.54 kg BMI: 34.2 kg/m Heart rate 71 bpm Blood pressure 131/73 mmHg Technically difficult exam due to body habitus. Color Doppler was utilized to interrogate the cardiac valves assessed and spectral Doppler was utilized to determine the flow velocities and pressure gradients reported in this exam. MEASUREMENTS: Value Indexed Normal Max aortic dimension 3.7 cm Ao < 3.8 Left atrial volume 52 ml (biplane A-L) 26 ml/m Eugenio <= 34 LV ID (diastole) 4.5 cm (2D) 2.27 cm/m LV ID (systole) 4.0 cm (2D) 2.01 cm/m IVS, leaflet tips 1.4 cm (2D) Posterior wall thickness 1.3 cm (2D) Left ventricular mass 241 g (2D) 122 g/m LV stroke volume 37 ml (2D 4-ch.) LV end diastolic volume 152 ml (2D 4-ch.) 77.1 ml/m 29<=EDVi<62 LV end systolic volume 115 ml (2D 4-ch.) 58.5 ml/m Ejection Fraction 24 % (2D 4-ch.) EF > 54 FINDINGS: LEFT VENTRICLE The left ventricle is moderately dilated. There is mild concentric left ventricular hypertrophy. Left ventricular systolic function is severely decreased. Left ventricular diastolic function was not evaluated due to pacing. Wall Motion: The basal inferior segment and basal inferoseptal segment are akinetic. The entire anterior septum, mid and distal inferior wall, and mid inferoseptal segment are severely hypokinetic. The entire anterior wall, entire lateral wall, and apex are mildly hypokinetic. RIGHT VENTRICLE The right ventricle is normal in size. Pacer wires are noted in the right ventricle. Right ventricular systolic function is mildly decreased. RV systolic tissue Doppler velocity is 9.0 cm/s. Tricuspid annular displacement is 1.8 cm. Estimated right ventricular systolic pressure is 27 mmHg consistent with normal pulmonary artery pressures. Estimated right atrial pressure is 3 mmHg (although IVC not seen). LEFT ATRIUM The left atrial cavity is normal in size. RIGHT ATRIUM The right atrial cavity is normal in size. Pacer wires are noted in the right atrium. Inferior Vena Cava: The inferior vena cava appears normal measuring 1.6 cm. MITRAL VALVE There is trace (trace - 1+) mitral valve regurgitation. There is no thickening. TRICUSPID VALVE The tricuspid valve leaflets are structurally normal. There is trace (trace - 1+) tricuspid valve regurgitation. AORTIC VALVE There is trace aortic valve regurgitation. Tricuspid aortic valve. There is no thickening. The peak gradient is 6 mmHg (peak velocity = 125.0 cm/s). PULMONIC VALVE The pulmonic valve was not seen or not interrogated. There is mild (1+ - 2+) pulmonic valve regurgitation. AORTA The visualized aorta is normal in size. Measurements - Mid ascending aorta 3.7 cm. INTERATRIAL SEPTUM The interatrial septum is mobile. There is evidence of intracardiac shunting as detected by Doppler. PERICARDIUM There is no pericardial effusion. There is an epicardial fat pad. CONCLUSIONS: - Technically difficult exam due to body habitus. - Exam indication: NICM - The left ventricle is moderately dilated. There is mild concentric left ventricular hypertrophy. Left ventricular systolic function is severely decreased. EF = 24 5% (2D 4-ch.) Left ventricular diastolic function was not evaluated due to pacing. - The right ventricle is normal in size. Right ventricular systolic function is mildly decreased. - Positive saline study on prior echo. - Exam was compared with the prior CC echocardiographic exam performed on 09/21/2022, no significant change. * * * Final * * * CC [facility] : [id number] [facility] CNOVon 08-04-2024 CNOV Office Visit (FAMPWS ) ----- SANDRA SCHMITZ ([id number]) 1945 F Date Time Provider Department 08/04/24 2:00 PM [facility] During your visit today, we recorded the following information about you: Mandeep Houser, 08/05/2024 4:42 PM Signed CC: Sandra Haleigh Nadir is a 79 year old female who presents to the office for OMT HPI: Acute on chronic back pain, started yesterday with significant mid to lower back pain. Has been up doing a lot around her home. Otherwise doesn't know what started or triggered her symptoms, no new bowel or bladder changes. Pain is worse when moving from sitting to standing or with standing or walking. No trauma that she is aware of. Pain is severe, has been taking tylenol and using ice and heating pad without relief of symptoms. She is not able to take NSAIDs. Has been doing a lot of new exercise with cardiac rehab which has been held since her back pain flare up. Had improvements after her OMT PAST MEDICAL HISTORY Diagnosis Date Acute acalculous cholecystitis 05/30/2020 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 09/22/2020 Acute on chronic systolic CHF (congestive heart failure) (HCC) 05/03/2020 Aspiration pneumonia (HCC) 05/30/2020 Chest pain 05/03/2020 Chest pressure 01/23/2013 Chronic diastolic congestive heart failure (HCC) 02/14/2021 Clostridium difficile diarrhea 09/28/2020 Complete uterovaginal prolapse Cystocele, midline Essential hypertension 06/14/2020 Homozygous Factor V Leiden mutation (HCC) 05/03/2020 Hypothyroidism IBS (irritable bowel syndrome) 01/23/2013 Palpitation CHRONIC Post-operative state 05/24/2020 Rectocele 05/25/2020 Shortness of breath 05/03/2020 Status post laparoscopic hysterectomy 05/30/2020 Tubular adenoma of colon 12/09/2020 Uterine prolapse 05/03/2020 PAST SURGICAL HISTORY Procedure Laterality Date COLONOSCOPY 01/07/2015 COLONOSCOPY 12/05/2021 repeat in 5 years COLONOSCOPY GEN ANES 12/06/2009 X3 LAST ONE IN 2009 EGD 11/08/2012 EGD 12/05/2021 INSERT/REPL DEFIB LEAD/GENER OTHR 07/2023 w/ Pacemaker PAST SURGICAL HISTORY OF 05/14/1999 left foot bunionectomy w/screws PAST SURGICAL HISTORY OF 05/14/1981 ectopic w/tube removal PAST SURGICAL HISTORY OF 2009 CYST REMOVED FROM UTERUS PAST SURGICAL HISTORY OF 05/24/2020 TVH, partial colpectomy, anterior colporrhaphy, Dennis transobturator midurethral sling, cystourethroscopy, rectocele repair with perineorrhaphy, laparoscopic lysis of adhesions and excision of bilateral adnexal structures PAST SURGICAL HISTORY OF 09/07/2020 Laparoscopic cholecystectomy with intraoperative cholangiograms. Dr. Ragsdale Current Outpatient Medications Medication Sig furosemide (LASIX) 20 mg tablet Take 1 tablet by mouth once daily. levothyroxine (LEVOXYL) 100 mcg tablet Take 1 tablet by mouth daily before breakfast. losartan (COZAAR) 25 mg tablet Take 1 tablet by mouth once daily. aluminum-magnesium hydroxide-simethicone 200-200-20 mg/5 mL suspension Take 30 mL by mouth every 6 hours as needed. dicyclomine (BENTYL) 10 mg capsule Take 1 capsule by mouth three times a day as needed (abdominal pain) for up to 20 doses. metoprolol succinate ER (TOPROL XL) 25 mg 24 hr tablet Take 1 tablet by mouth daily at bedtime. acetaminophen (TYLENOL) 500 mg tablet Take 2 tablets by mouth every 8 hours as needed for pain. cyanocobalamin (VITAMIN B-12) 1,000 mcg tab Take 1 tablet by mouth once daily. Cholecalciferol, Vitamin D3, 50 mcg (2,000 unit) cap Take 2 capsules by mouth once daily. aspirin, enteric coated (ECOTRIN LOW STRENGTH) 81 mg EC tablet Take 1 tablet by mouth once daily. No current facility-administered medications for this visit. ALLERGIES Allergen Reactions Emilio Inhibitors Intolerance Short of breath, symptoms of heart failure Beta-Blockers (Beta* Intolerance Short of breath, symptoms of heart failure Augmentin [Amoxicil* GI Upset Codeine Mental Status Change Patient felt like she was made out of lead Entresto [Sacubitri* Intolerance Lipitor [Atorvastat* Myalgia Muscle aches Sulfa (Sulfonamide * Intolerance Amlodipine Intolerance lightheaded Social History Tobacco Use Smoking status: Former Current packs/day: 0.00 Types: Cigarettes Quit date: 10/22/2002 Years since quittin.8 Smokeless tobacco: Never Vaping Use Vaping status: Never Used Substance Use Topics Alcohol use: No Drug use: No ROS: See HPI PE: There were no vitals taken for this visit. Gen: AANDOX3, she appears uncomfortable HEENT: PERRLA, EOMs intact b/l, nares without drainage, pharynx without erythema, exudate, lesions, or drainage. Uvula midline. Neck: supple, No cervical LAD, no thyromegaly, no carotid bruits, suboccipital fullness right head, C3-6NRrSBr Right 1st rib inhalation dysfunction posterior T3-10ERrSBl L1-2NRrSBr left (more content not included)... [facility] CNOVon 07-21-2024 CNOV Office Visit (FAMPWS ) ----- SANDRA SCHMITZ ([id number]) 1945 F Date Time Provider Department 07/21/24 4:00 PM MANDEEP HOUSER FAMPWS During your visit today, we recorded the following information about you: Temperature Pulse Respiration Blood pressure 97 degrees 76/minute 20/minute 146/82 Weight 87.5 kg Mandeep Houser, DO 07/21/2024 4:59 PM Signed CC: Sandra Schmitz is a 79 year old female who presents to the office for follow up HPI: Seen in the office on 07/08/2024 as below Cough, chest congestion, sputum production, no fevers or chills. She was started on doxycycline medication. Has had some nausea since being on this antibiotic. Has had some left rib pain since developed this cough 3 weeks ago. + sick contacts. Mood, admits to a lot of fatigue, no SI or HI. Has a lot of support from family No vomiting, or diarrhea HTN, well controlled Heart failure, acute on chronic. 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 Just still with some fatigue but seems to be getting better. No further cough, no sputum production, no fevers or chills. Heart failure. Has an echo to get scheduled and completed for the press operator assistant, taking her medications as prescribed. PAST MEDICAL HISTORY Diagnosis Date Acute acalculous cholecystitis 05/30/2020 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 09/22/2020 Acute on chronic systolic CHF (congestive heart failure) ([facility]) 05/03/2020 Aspiration pneumonia ([facility]) 05/30/2020 Chest pain 05/03/2020 Chest pressure 01/23/2013 Chronic diastolic congestive heart failure (HCC) 02/14/2021 Clostridium difficile diarrhea 09/28/2020 Complete uterovaginal prolapse Cystocele, midline Essential hypertension 06/14/2020 Homozygous Factor V Leiden mutation (HCC) 05/03/2020 Hypothyroidism IBS (irritable bowel syndrome) 01/23/2013 Palpitation CHRONIC Post-operative state 05/24/2020 Rectocele 05/25/2020 Shortness of breath 05/03/2020 Status post laparoscopic hysterectomy 05/30/2020 Tubular adenoma of colon 12/09/2020 Uterine prolapse 05/03/2020 PAST SURGICAL HISTORY Procedure Laterality Date COLONOSCOPY 01/07/2015 COLONOSCOPY 12/05/2021 repeat in 5 years COLONOSCOPY GEN ANES 12/06/2009 X3 LAST ONE IN 2009 EGD 11/08/2012 EGD 12/05/2021 INSERT/REPL DEFIB LEAD/GENER OTHR 07/2023 w/ Pacemaker PAST SURGICAL HISTORY OF 05/14/1999 left foot bunionectomy w/screws PAST SURGICAL HISTORY OF 05/14/1981 ectopic w/tube removal PAST SURGICAL HISTORY OF 2009 CYST REMOVED FROM UTERUS PAST SURGICAL HISTORY OF 05/24/2020 TVH, partial colpectomy, anterior colporrhaphy, Dennis transobturator midurethral sling, cystourethroscopy, rectocele repair with perineorrhaphy, laparoscopic lysis of adhesions and excision of bilateral adnexal structures PAST SURGICAL HISTORY OF 09/07/2020 Laparoscopic cholecystectomy with intraoperative cholangiograms. Dr. Ragsdale Current Outpatient Medications Medication Sig furosemide (LASIX) 20 mg tablet Take 1 tablet by mouth once daily. levothyroxine (LEVOXYL) 100 mcg tablet Take 1 tablet by mouth daily before breakfast. losartan (COZAAR) 25 mg tablet Take 1 tablet by mouth once daily. aluminum-magnesium hydroxide-simethicone 200-200-20 mg/5 mL suspension Take 30 mL by mouth every 6 hours as needed. dicyclomine (BENTYL) 10 mg capsule Take 1 capsule by mouth three times a day as needed (abdominal pain) for up to 20 doses. metoprolol succinate ER (TOPROL XL) 25 mg 24 hr tablet Take 1 tablet by mouth daily at bedtime. acetaminophen (TYLENOL) 500 mg tablet Take 2 tablets by mouth every 8 hours as needed for pain. cyanocobalamin (VITAMIN B-12) 1,000 mcg tab Take 1 tablet by mouth once daily. Cholecalciferol, Vitamin D3, 50 mcg (2,000 unit) cap Take 2 capsules by mouth once daily. aspirin, enteric coated (ECOTRIN LOW STRENGTH) 81 mg EC tablet Take 1 tablet by mouth once daily. Current Facility-Administered Medications Medication Dose Route Frequency cyanocobalamin 1,000 mcg injection 1,000 mcg INTRAMUSCULAR ONCE ALLERGIES Allergen Reactions Emilio Inhibitors Intolerance Short of breath, symptoms of heart failure Beta-Blockers (Beta* Intolerance Short of breath, symptoms of heart failure Augmentin [Amoxicil* GI Upset Codeine Mental Status Change Patient felt like she was made out of lead Entresto [Sacubitri* Intolerance Lipitor [Atorvastat* Myalgia Muscle aches Sulfa (Sulfonamide * Intolerance Amlodipine Intolerance lightheaded Social History Tobacco Use Smoking status: Former Current packs/day: 0.00 Types: Cigarettes Quit date: 10/22/2002 Years since quittin.7 Smokeless tobacco: Never (more content not included)... [facility] 25(OH)D3 SerPl-mCncon 2024 25-hydroxyvitamin D3 [Mass/Vol] 26.0 ng/mL Low 31.0-80.0 [facility] Comment on above: Order Comment: Speci men Type: BLOOD SPECIMENOrdering Facility: [facility] Address: [address] [place] [address] Performed By: #### 1 989-3 ####[facility] LABIA [id number] [address] [place] Bacteria Ur Culton Bacteria identified Cx Nom (U) ORGANISM ID: 1 50,000-<100,000 CFU/ml Normal urogenital kash [facility] Comment on above: Performed By: #### 6 30-4 ####[facility] LABCLIA [id number] [address] [place] CBC W Auto Differential pane l (Bld)on 07-08-2024 Basophils (Bld) [#/Vol] 0.12 10*3/uL High [facility] Basophils/100 WBC (Bld) 1.4 % [facility] Differential cell count method Nom (Bld) Auto [facility] Eosinophils (Bld) [#/Vol] 0.16 10*3/uL [facility] Eosinophils/100 WBC (Bld) 1.8 % [facility] Erythrocyte distribution width (RBC) [Ratio] 14.5 % 11.5 - 15.0 % [facility] Hematocrit (Bld) [Volume fraction] 43.4 % 36.0 - 46.0 % [facility] Hemoglobin (Bld) [Mass/Vol] 13.6 g/dL 11.5 - 15.5 g/dL [facility] Immature granulocytes (Bld) [#/Vol] 0.08 10*3/uL [facility] Immature granulocytes/100 WBC (Bld) 0.9 % [facility] Interpretation and review of laboratory results Abnormal [facility] Lymphocytes (Bld) [#/Vol] 3.59 10*3/uL [facility] Lymphocytes/100 WBC (Bld) 40.5 % [facility] MCH (RBC) [Entitic mass] 28.7 pg 26.0 - 34.0 pg [facility] MCHC (RBC) [Mass/Vol] 31.3 g/dL 30.5 - 36.0 g/dL [facility] MCV (RBC) [Entitic vol] 91.6 fL 80.0 - 100.0 fL [facility] Monocytes (Bld) [#/Vol] 0.81 10*3/uL NINF [facility] Monocytes/100 WBC (Bld) 9.1 % [facility] Neutrophils (Bld) [#/Vol] 4.11 10*3/uL [facility] Neutrophils/100 WBC (Bld) 46.3 % [facility] Nucleated RBC (Bld) [#/Vol] NINF [facility] Nucleated RBC/100 WBC (Bld) [Ratio] 0 % /100 WBC [facility] Platelet mean volume (Bld) [Entitic vol] 10.7 fL 9.0 - 12.7 fL [facility] Platelets (Bld) [#/Vol] 430 10*3/uL High [facility] RBC (Bld) [#/Vol] 4.74 10*6/uL 3.90 - 5.2 0 m/uL [facility] WBC (Bld) [#/Vol] 8.87 10*3/uL [facility] Basophils (Bld) [#/Vol] 0.12 10*3/uL High <0.11 [facility] Comment on above: Order Comment: Speci men Type: BLOOD SPECIMENOrdering Facility: [facility] Address: [address] [place] [address] Performed By: #### 5 7021-8 ####[facility] LABORATORYCLIA [id number] [address] STATES OF [facility] Basophils/100 WBC (Bld) 1.4 % [facility] Comment on above: Order Comment: Speci men Type: BLOOD SPECIMENOrdering Facility: [facility] Address: [address] [place] [address] Performed By: #### 5 7021-8 ####[facility] LABORATORYCLIA [id number] [address] Differential cell count method Nom (Bld) Auto [facility] Comment on above: Order Comment: Speci men Type: BLOOD SPECIMENOrdering Facility: [facility] Address: [address] [place] [address] Performed By: #### 5 7021-8 ####[facility] LABORATORYCLIA [id number] [address] [place] Eosinophils (Bld) [#/Vol] 0.16 10*3/uL Normal <0.46 [facility] Comment on above: Order Comment: Speci men Type: BLOOD SPECIMENOrdering Facility: [facility] Address: [address] [place] [address] Performed By: #### 5 7021-8 ####[facility] LABORATORYCLIA [id number] [address] [place] [facility] Eosinophils/100 WBC (Bld) 1.8 % [facility] Comment on above: Order Comment: Speci men Type: BLOOD SPECIMENOrdering Facility: [facility] Address: [address] [place] [address] Performed By: #### 5 7021-8 ####[facility] LABORATORYCLIA [id number] [address] Erythrocyte distribution width (RBC) [Ratio] 14.5 % Normal 11.5-15.0 [facility] Comment on above: Order Comment: Speci men Type: BLOOD SPECIMENOrdering Facility: [facility] Address: [address] [place] [address] Performed By: #### 5 7021-8 ####[facility] LABORATORYCLIA [id number] [address] Hematocrit (Bld) [Volume fraction] 43.4 % Normal 36.0-46.0 [facility] Comment on above: Order Comment: Speci men Type: BLOOD SPECIMENOrdering Facility: [facility] Address: [address] [place] [address] Performed By: #### 5 7021-8 ####[facility] LABORATORYCLIA [id number] [place] [id number] [place] Hemoglobin (Bld) [Mass/Vol] 13.6 g/dL Normal 11.5-15.5 [facility] Comment on above: Order Comment: Speci men Type: BLOOD SPECIMENOrdering Facility: [facility] Address: [address] [place] [address] Performed By: #### 5 7021-8 ####[facility]ORATORYCLIA [id number] [place] [id number] [place] Immature granulocytes (Bld) [#/Vol] 0.08 10*3/uL Normal <0.10 [facility] Comment on above: Order Comment: Speci men Type: BLOOD SPECIMENOrdering Facility: [facility] Address: [address] [place] [address] Performed By: #### 5 7021-8 ####[facility] LABORATORYCLIA [id number] [place] [address] [place] Immature granulocytes/100 WBC (Bld) 0.9 % Normal [facility] Comment on above: Order Comment: Speci men Type: BLOOD SPECIMENOrdering Facility: [facility] Address: [address] [place] [address] Performed By: #### 5 7021-8 ####[facility]ORATORYCLIA [id number] [place] [id number] [place] Lymphocytes (Bld) [#/Vol] 3.59 10*3/uL Normal 1.00-4.00 [facility] Comment on above: Order Comment: Speci men Type: BLOOD SPECIMENOrdering Facility: [facility] Address: [address] [place] [address] Performed By: #### 5 7021-8 ####[facility] LABORATORYCLIA [id number] [place] [id number] [place] Lymphocytes/100 WBC (Bld) 40.5 % Normal [facility] Comment on above: Order Comment: Speci men Type: BLOOD SPECIMENOrdering Facility: [facility] Address: [address] [place] [address] Performed By: #### 5 7021-8 ####[facility]CAB[facility] LABORATORYCLIA [id number] [address] MCH (RBC) [Entitic mass] 28.7 pg Normal 26.0-34.0 [facility] Comment on above: Order Comment: Speci men Type: BLOOD SPECIMENOrdering Facility: [facility] Address: [address] [place] [address] Performed By: #### 5 7021-8 ####[facility] LABORATORYCLIA [id number] [address] [place] MCHC (RBC) [Mass/Vol] 31.3 g/dL Normal 30.5-36.0 [facility] Comment on above: Order Comment: Speci men Type: BLOOD SPECIMENOrdering Facility: [facility] Address: [address] [place] [address] Performed By: #### 5 7021-8 ####[facility] LABORATORYCLIA [id number] [address] [place] MCV (RBC) [Entitic vol] 91.6 fL Normal 80.0-100.0 [facility] Comment on above: Order Comment: Speci men Type: BLOOD SPECIMENOrdering Facility: [facility] Address: [address] [place] [address] Performed By: #### 5 7021-8 ####[facility] LABORATORYCLIA [id number] [address] [place] Monocytes (Bld) [#/Vol] 0.81 10*3/uL Normal <0.87 [facility] Comment on above: Order Comment: Speci men Type: BLOOD SPECIMENOrdering Facility: [facility] Address: [address] [place] [address] Performed By: #### 5 7021-8 ####[facility] LABORATORYCLIA [id number] [address] [place] Monocytes/100 WBC (Bld) 9.1 % Normal [facility] Comment on above: Order Comment: Speci men Type: BLOOD SPECIMENOrdering Facility: [facility] Address: [address] [place] [address] Performed By: #### 5 7021-8 ####[facility] LABORATORYCLIA [id number] [place] [address] [place] Neutrophils (Bld) [#/Vol] 4.11 10*3/uL Normal 1.45-7.50 [facility] Comment on above: Order Comment: Speci men Type: BLOOD SPECIMENOrdering Facility: [facility] Address: [address] [place] [address] Performed By: #### 5 7021-8 ####[facility] LABORATORYCLIA [id number] [place] [address] [place] Neutrophils/100 WBC (Bld) 46.3 % Normal [facility] Comment on above: Order Comment: Speci men Type: BLOOD SPECIMENOrdering Facility: [facility] Address: [address] [place] [address] Performed By: #### 5 7021-8 ####[facility] LABORATORYCLIA [id number] [place] [address] [place] Nucleated RBC (Bld) [#/Vol] 10*3/uL Normal <0.01 [facility] Comment on above: Order Comment: Speci men Type: BLOOD SPECIMENOrdering Facility: [facility] Address: [address] [place] [address] Performed By: #### 5 7021-8 ####[facility] LABORATORYCLIA [id number] [place] [address] [place] Nucleated RBC/100 WBC (Bld) [Ratio] 0.0 /100 WBC Normal [facility] Comment on above: Order Comment: Speci men Type: BLOOD SPECIMENOrdering Facility: [facility] Address: [address] [place] [address] Performed By: #### 5 7021-8 ####[facility] LABORATORYCLIA [id number] [address] [place] Platelet mean volume (Bld) [Entitic vol] 10.7 fL Normal 9.0-12.7 [facility] Comment on above: Order Comment: Speci men Type: BLOOD SPECIMENOrdering Facility: [facility] Address: [address] [place] [address] Performed By: #### 5 7021-8 ####[facility] LABORATORYCLIA [id number] [place] [address] [place] Platelets (Bld) [#/Vol] 430 10*3/uL High 150-400 [facility] Comment on above: Order Comment: Speci men Type: BLOOD SPECIMENOrdering Facility: [facility] Address: [address] [place] [address] Performed By: #### 5 7021-8 ####[facility] LABORATORYCLIA [id number] [place] [address] [place] RBC (Bld) [#/Vol] 4.74 10*6/uL Normal 3.90-5.20 [facility] Comment on above: Order Comment: Speci men Type: BLOOD SPECIMENOrdering Facility: [facility] Address: [address] [place] [address] Performed By: #### 5 7021-8 ####[facility] LABORATORYCLIA [id number] [place] [id number] [place] WBC (Bld) [#/Vol] 8.87 10*3/uL Normal 3.70-11.00 [facility] Comment on above: Order Comment: Speci men Type: BLOOD SPECIMENOrdering Facility: [facility] Address: [address] [place] [address] Performed By: #### 5 7021-8 ####[facility] LABORATORYCLIA [id number] [address] [place] CNOVon 07-08-2024 CNOV Office Visit (FAMPWS ) ----- SANDRA SCHMITZ ([id number]) 1945 F Date Time Provider Department 07/08/24 2:00 PM MANDEEP HOUSER During your visit today, we recorded the following information about you: Pulse Blood pressure Weight 66/minute 110/70 83.5 kg Mandeep Houser DO 07/08/2024 2:50 PM Signed [employer] local options Dr.[facility]. [place] Options for mood Low dose of valerian root 250-500 mg in the evening Light box therapy consideration of light at 10,000 Lux strength- 20-30 minutes a day in the AM from Feb through August to help mood, can buy this on [employer] for use Mandeep Houser DO 07/08/2024 3:48 PM Signed CC: Sandra Schmitz is a 78 year old female who presents to the office for OMT HPI: Cough, chest congestion, sputum production, no fevers or chills. She was started on doxycycline medication. Has had some nausea since being on this antibiotic. Has had some left rib pain since developed this cough 3 weeks ago. + sick contacts. Mood, admits to a lot of fatigue, no SI or HI. Has a lot of support from family No vomiting, or diarrhea HTN, well controlled Heart failure, acute on chronic. 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 assistant more local for better accessibility PAST MEDICAL HISTORY Diagnosis Date Acute acalculous cholecystitis 05/30/2020 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 09/22/2020 Acute on chronic systolic CHF (congestive heart failure) ([facility]) 05/03/2020 Aspiration pneumonia ([facility]) 05/30/2020 Chest pain 05/03/2020 Chest pressure 01/23/2013 Chronic diastolic congestive heart failure ([facility]) 02/14/2021 Clostridium difficile diarrhea 09/28/2020 Complete uterovaginal prolapse Cystocele, midline Essential hypertension 06/14/2020 Homozygous Factor V Leiden mutation (HCC) 05/03/2020 Hypothyroidism IBS (irritable bowel syndrome) 01/23/2013 Palpitation CHRONIC Post-operative state 05/24/2020 Rectocele 05/25/2020 Shortness of breath 05/03/2020 Status post laparoscopic hysterectomy 05/30/2020 Tubular adenoma of colon 12/09/2020 Uterine prolapse 05/03/2020 PAST SURGICAL HISTORY Procedure Laterality Date COLONOSCOPY 01/07/2015 COLONOSCOPY 12/05/2021 repeat in 5 years COLONOSCOPY GEN ANES 12/06/2009 X3 LAST ONE IN 2009 EGD 11/08/2012 EGD 12/05/2021 INSERT/REPL DEFIB LEAD/GENER OTHR 07/2023 w/ Pacemaker PAST SURGICAL HISTORY OF 05/14/1999 left foot bunionectomy w/screws PAST SURGICAL HISTORY OF 05/14/1981 ectopic w/tube removal PAST SURGICAL HISTORY OF 2009 CYST REMOVED FROM UTERUS PAST SURGICAL HISTORY OF 05/24/2020 TVH, partial colpectomy, anterior colporrhaphy, Dennis transobturator midurethral sling, cystourethroscopy, rectocele repair with perineorrhaphy, laparoscopic lysis of adhesions and excision of bilateral adnexal structures PAST SURGICAL HISTORY OF 09/07/2020 Laparoscopic cholecystectomy with intraoperative cholangiograms. Dr. Ragsdale Current Outpatient Medications Medication Sig doxycycline (VIBRA-TABS) 100 mg tablet Take 1 tablet by mouth two times a day for 10 days. furosemide (LASIX) 20 mg tablet Take 1 tablet by mouth once daily. levothyroxine (LEVOXYL) 100 mcg tablet Take 1 tablet by mouth daily before breakfast. losartan (COZAAR) 25 mg tablet Take 1 tablet by mouth once daily. aluminum-magnesium hydroxide-simethicone 200-200-20 mg/5 mL suspension Take 30 mL by mouth every 6 hours as needed. dicyclomine (BENTYL) 10 mg capsule Take 1 capsule by mouth three times a day as needed (abdominal pain) for up to 20 doses. metoprolol succinate ER (TOPROL XL) 25 mg 24 hr tablet Take 1 tablet by mouth daily at bedtime. acetaminophen (TYLENOL) 500 mg tablet Take 2 tablets by mouth every 8 hours as needed for pain. cyanocobalamin (VITAMIN B-12) 1,000 mcg tab Take 1 tablet by mouth once daily. Cholecalciferol, Vitamin D3, 50 mcg (2,000 unit) cap Take 2 capsules by mouth once daily. aspirin, enteric coated (ECOTRIN LOW STRENGTH) 81 mg EC tablet Take 1 tablet by mouth once daily. No current facility-administered medications for this visit. ALLERGIES Allergen Reactions Emilio Inhibitors Intolerance Short of breath, symptoms of heart failure Beta-Blockers (Beta* Intolerance Short of breath, symptoms of heart failure Augmentin [Amoxicil* GI Upset Codeine Mental Status Change Patient felt like she was made out of lead Entresto [Sacubitri* Intolerance Lipitor [Atorvastat* Myalgia Muscle aches Sulfa (Sulfonamide * Intolerance Amlodipine Intolerance lightheaded Social History Tobacco Use Smoking status: Former Current packs/day: 0.00 Types: Cigarettes Quit date: 10/22/2002 Years since quittin.7 Smokeless tobacco: Never Vaping Use Vaping status: Never Used Substance Use Topics Alcohol use: No (more content not included)... Normal [facility] Comprehensive metabolic 2000 panelon 07-08-2024 Albumin [Mass/Vol] 4.3 g/dL Normal 3.9-4.9 [facility] Comment on above: Order Comment: Speci men Type: BLOOD SPECIMENOrdering Facility: [facility] Address: [address] [place] [address] Performed By: #### 2 132-9, 60314-0 ####East End ManufacturingCABELL [facility] LABORATORYCLIA [id number] [address] STATES OF [facility] ALP [Catalytic activity/Vol] 82 U/L Normal 34-123 [facility] Comment on above: Order Comment: Speci men Type: BLOOD SPECIMENOrdering Facility: [facility] Address: [address] [place] [address] Performed By: #### 2 132-9, 26657-9 ####[employer] ManufacturingC[facility] LABORATORYCLIA [id number] [address] [place] ALT With P-5'-P [Catalytic activity/Vol] 11 U/L Normal 7-38 [facility] Comment on above: Order Comment: Speci men Type: BLOOD SPECIMENOrdering Facility: [facility] Address: [address] [place] [address] Performed By: #### 2 132-9, 40020-1 ####[facility]ORATORYCLIA [id number] [place] [address] [place] Anion gap [Moles/Vol] 12 mmol/L Normal 8-15 [facility] Comment on above: Order Comment: Speci men Type: BLOOD SPECIMENOrdering Facility: [facility] Address: [address] [place] [address] Performed By: #### 2 132-9, 58541-2 ####[facility] LABORATORYCLIA [id number] [place] [address] [place] AST With P-5'-P [Catalytic activity/Vol] 16 U/L Normal 13-35 [facility] Comment on above: Order Comment: Speci men Type: BLOOD SPECIMENOrdering Facility: [facility] Address: [address] [place] [address] Performed By: #### 2 132-9, 58190-0 ####[facility]EC[facility] LABORATORYCLIA [id number] [place] [address] [place] Bilirubin [Mass/Vol] 0.7 mg/dL Normal 0.2-1.3 [facility] Comment on above: Order Comment: Speci men Type: BLOOD SPECIMENOrdering Facility: [facility] Address: [address] [place] [address] Performed By: #### 2 132-9, 85554-9 ####[facility]ORATORYCLIA [id number] [place] [address] [place] Calcium [Mass/Vol] 9.8 mg/dL Normal 8.5-10.2 [facility] Comment on above: Order Comment: Speci men Type: BLOOD SPECIMENOrdering Facility: [facility] Address: [address] [place] [address] Performed By: #### 2 132-9, 83917-0 ####[facility]ORATORYCLIA [id number] [place] [address] [place] Chloride [Moles/Vol] 102 mmol/L Normal 98-107 [facility] Comment on above: Order Comment: Speci men Type: BLOOD SPECIMENOrdering Facility: [facility] Address: [address] [place] [address] Performed By: #### 2 132-9, 87140-2 ####East End ManufacturingLUIS ALFREDO [facility] LABORATORYCLIA [id number] [place] [address] [place] CO2 [Moles/Vol] 26 mmol/L Normal 22-30 [facility] Comment on above: Order Comment: Speci men Type: BLOOD SPECIMENOrdering Facility: [facility] Address: [address] [place] [address] Performed By: #### 2 132-9, ####East End ManufacturingHIGHLAND-CLARKSBURG HOSPITALIA [id number] [address] OF [facility] Creatinine [Mass/Vol] 0.85 mg/dL Normal 0.58-0.96 [facility] Comment on above: Order Comment: Speci men Type: BLOOD SPECIMENOrdering Facility: [facility] Address: [address] [place] [address] Performed By: #### 2 132-9, 54129-4 ####East End ManufacturingHIGHLAND-CLARKSBURG HOSPITALIA [id number] [address] Creatinine and Glomerular filtration rate.predicted panel (S/P/Bld) 71 mL/min/1.73m??? Normal >=60 [facility] Comment on above: Order Comment: Speci men Type: BLOOD SPECIMENOrdering Facility: [facility] Address: [address] [place] [address] Result Comment: Aaron mated Glomerular Filtration Rate (eGFR) is calculated using the 2020 CKD-EPI creatinine equation. This equation utilizes serum creatinine, sex, and age as parameters. The creatinine assay has traceable calibration to isotope dilution-mass spectrometry. Refer to KDIGO guidelines for clinical interpretation. In patients with unstable renal function, e.g. those with acute kidney injury, the eGFR may not accurately reflect actual GFR. Performed By: #### 2 132-9, 70851-8 ####[employer] [facility] LABORATORYCLIA [id number] [place] [id number] [place] Glucose [Mass/Vol] 86 mg/dL Normal 74-99 [facility] Comment on above: Order Comment: Lenard men Type: BLOOD SPECIMENOrdering Facility: [facility] Address: [address] [place], [place] [address] Result Comment: The [place] Diabetes [employer] (ADA) provides guidance for cutoff values for fasting glucose and random glucose. The ADA defines fasting as no caloric intake for at least 8 hours. Fasting plasma glucose results between 100 to 125 mg/dL indicate increased risk for diabetes (prediabetes). Fasting plasma glucose results greater than or equal to 126 mg/dL meet the criteria for diagnosis of diabetes. In the absence of unequivocal hyperglycemia, results should be confirmed by repeat testing. In a patient with classic symptoms of hyperglycemia or hyperglycemic crisis, random plasma glucose results greater than or equal to 200 mg/dL meet the criteria for diagnosis of diabetes. Reference: Standards of Medical Care in Diabetes 2016, [place] [employer]. Diabetes Care. 2016.39(Suppl 1). Performed By: #### 2 132-9, 79675-2 ####[facility] LABORATORYCLIA [id number] [place] [id number] [place] Potassium [Moles/Vol] 4.9 mmol/L Normal 3.7-5.1 [facility] Comment on above: Order Comment: Lenard jesus Type: BLOOD SPECIMENOrdering Facility: [facility] Address: [address] [place], [place] [address] Performed By: #### 2 132-9, ####[facility] LABORATORYCLIA [id number] [place] [address] [place] Protein [Mass/Vol] 7.4 g/dL Normal 6.3-8.0 [facility] Comment on above: Order Comment: Lenard jesus Type: BLOOD SPECIMENOrdering Facility: [facility] Address: [address] [place], [place] [address] Performed By: #### 2 132-9, 40917-1 ####[facility] ManufacturingC[facility] LABORATORYCLIA [id number] [place] [address] [place] Sodium [Moles/Vol] 140 mmol/L Normal 136-144 [facility] Comment on above: Order Comment: Speci men Type: BLOOD SPECIMENOrdering Facility: [facility] Address: [address] [place] [address] Performed By: #### 2 132-9, 90799-7 ####[facility] LABORATORYCLIA [id number] [place] [address] [place] Urea nitrogen [Mass/Vol] 23 mg/dL High 7-21 [facility] Comment on above: Order Comment: Speci men Type: BLOOD SPECIMENOrdering Facility: [facility] Address: [address] [place] [address] Performed By: #### 2 132-9, 64934-7 ####[facility] LABORATORYCLIA [id number] [place] [address] [place] Magnesium SerPl-mCncon 07-08 Magnesium [Mass/Vol] 2.0 mg/dL Normal 1.7-2.3 [facility] Comment on above: Order Comment: Speci men Type: BLOOD SPECIMENOrdering Facility: [facility] Address: [address] [place] [address] Performed By: #### 3 016-3, 35432-1, 89674-0, 7 ####[facility] LABORATORYCLIA [id number] [place] [address] [place] NT-proBNP SerPl-mCncon 07-08 Natriuretic peptide.B prohormone N-Terminal [Mass/Vol] 2199 pg/mL High <450 [facility] Comment on above: Order Comment: Speci men Type: BLOOD SPECIMENOrdering Facility: [facility] Address: [address] [place] [address] Performed By: #### 3 016-3, 31977-1, , 3023-11 ####[facility] LABORATORYCLIA [id number] [place] [address] [place] T4 Free SerPl-mCncon 07-08- 025 Free T4 [Mass/Vol] 1.8 ng/dL High 0.9-1.7 [facility] Comment on above: Order Comment: Speci men Type: BLOOD SPECIMENOrdering Facility: [facility] Address: [address] [place] [address] Performed By: #### 3 016-3, 43496-2, 08250-1, 3024-7 ####[facility] LABORATORYCLIA [id number] [place] [address] [place] TSH SerPl-aCncon 07-08-2024 TSH Qn 0.814 m[IU]/L Normal 0.270-4.200 [facility] Comment on above: Order Comment: Speci men Type: BLOOD SPECIMENOrdering Facility: [facility] Address: [address] [place] [address] Performed By: #### 3 016-3, 38649-0, 64568-0, 3024-7 ####[facility] LABORATORYCLIA [id number] [place] [address] [place] Urinalysis complete panel (U )on 07-08-2024 Bacteria LM.HPF (Urine sed) [#/Area] Negative Normal Negative [facility] Comment on above: Order Comment: Speci men Type: URINE SPECIMENOrdering Facility: [facility] Address: [address] [place] [address] Performed By: #### 2 4356-8 ####[facility] LABCLIA [id number] [place] [address] [place] Bilirubin Ql (U) Negative Normal Negative [facility] Comment on above: Order Comment: Speci men Type: URINE SPECIMENOrdering Facility: [facility] Address: [address] [place] [address] Performed By: #### 2 4356-8 ####[facility] LABCLIA [id number] [place] [address] [place] Clarity (Unsp spec) Clear Normal Clear [facility] Comment on above: Order Comment: Speci men Type: URINE SPECIMENOrdering Facility: [facility] Address: [address] [place] [address] Performed By: #### 2 4356-8 ####[facility] LABCLIA [id number] [address], [place] [address] [place] Color (U) Yellow Normal Yellow [facility] Comment on above: Order Comment: Speci men Type: URINE SPECIMENOrdering Facility: [facility] Address: [address] [place] [address] Performed By: #### 2 4356-8 ####[facility] LABIA [id number] [address], [place] [address] [place] Epithelial cells LM.HPF (Urine sed) [#/Area] Few Normal [facility] Comment on above: Order Comment: Speci men Type: URINE SPECIMENOrdering Facility: [facility] Address: [address] [place] [address] Performed By: #### 2 4356-8 ####[facility] LABIA [id number] [address], [facility] [place] Glucose Test strip (U) [Mass/Vol] Negative Normal Negative [facility] Comment on above: Order Comment: Speci men Type: URINE SPECIMENOrdering Facility: [facility] Address: [address] [place] [address] Performed By: #### 2 4356-8 ####[facility] LABIA [id number] [address], [facility] [place] Hemoglobin Ql (U) Negative Normal Negative [facility] Comment on above: Order Comment: Speci men Type: URINE SPECIMENOrdering Facility: [facility] Address: [address] [place] [address] Performed By: #### 2 4356-8 ####[facility] LABCLIA [id number] [address] [place] [address] [place] Hyaline casts (Urine sed) [#/Area] 0 /[LPF] Normal 0 /LPF [facility] Comment on above: Order Comment: Speci men Type: URINE SPECIMENOrdering Facility: [facility] Address: [address] [place] [address] Performed By: #### 2 4356-8 ####[facility] LABCLIA [id number] [facility] [address] [place] [address] [place] Ketones Ql (U) Negative Normal Negative [facility] Comment on above: Order Comment: Speci men Type: URINE SPECIMENOrdering Facility: [facility] Address: [address] [place] [address] Performed By: #### 2 4356-8 ####[facility] LABCLIA [id number] [address], [facility] [place] Leukocyte esterase Test strip Ql (U) Negative Normal Negative [facility] Comment on above: Order Comment: Speci men Type: URINE SPECIMENOrdering Facility: [facility] Address: [address] [place] [address] Performed By: #### 2 4356-8 ####[facility] LABCLIA [id number] [address], [facility] [place] Nitrite Ql (U) Negative Normal Negative [facility] Comment on above: Order Comment: Speci men Type: URINE SPECIMENOrdering Facility: [facility] Address: [address] [place] [address] Performed By: #### 2 4356-8 ####[facility] LABCLIA [id number] [address] [place] [address] [place] pH (U) 6.0 [pH] Normal <8.5 [facility] Comment on above: Order Comment: Speci men Type: URINE SPECIMENOrdering Facility: [facility] Address: [address] [place] [address] Performed By: #### 2 4356-8 ####[facility] LABCLIA [id number] [address] [place] [address] [place] Protein (U) [Mass/Vol] Negative Normal Negative [facility] Comment on above: Order Comment: Speci men Type: URINE SPECIMENOrdering Facility: [facility] Address: [address] [place] [address] Performed By: #### 2 4356-8 ####[facility] [id number] [place] [address] [place] RBC LM.HPF (Urine sed) [#/Area] 0-2 /HPF Normal 0-2 /HPF [facility] Comment on above: Order Comment: Speci men Type: URINE SPECIMENOrdering Facility: [facility] Address: [address] [place] [address] Performed By: #### 2 4356-8 ####[facility] [id number] [place] [address] [place] Specific gravity (U) [Rel density] 1.022 Normal 1.005-1.030 [facility] Comment on above: Order Comment: Speci men Type: URINE SPECIMENOrdering Facility: [facility] Address: [address] [place] [address] Performed By: #### 2 4356-8 ####[facility] [id number] [address] [place] Urobilinogen Ql (U) 0.2 EU/dL Normal 0.2-1.0 EU/dL [facility] Comment on above: Order Comment: Speci men Type: URINE SPECIMENOrdering Facility: [facility] Address: [address] [place] [address] Performed By: #### 2 4356-8 ####[facility] [id number] [place] [address] [place] WBC LM.HPF (Urine sed) [#/Area] 0-5 /HPF Normal 0-5 /HPF [facility] Comment on above: Order Comment: Speci men Type: URINE SPECIMENOrdering Facility: [facility] Address: [address] [place] [address] Performed By: #### 2 4356-8 ####[facility] LABCLIA [id number] [place] [address] [place] Vit B12 SerPl-mCncon 07-08- 025 Cobalamin (Vitamin B12) [Mass/Vol] pg/mL High 232-1245 [facility] Comment on above: Order Comment: Speci men Type: BLOOD SPECIMENOrdering Facility: [facility] Address: [address] [place] [address] Performed By: #### 2 132-9, 62895-0 ####[facility] LABORATORYCLIA [id number] [place] [id number] [place] XR CHEST 2V FRONTAL/LATon XR CHEST 2V FRONTAL/LAT * * *Final Report* * * DATE OF EXAM: Jul 08 2024 3:31PM WOX [id number] - XR CHEST 2V FRONTAL/LAT / PROCEDURE REASON: Acute cough * * * * Physician Interpretation * * * * EXAMINATION: CHEST RADIOGRAPH (2 VIEW FRONTAL and LATERAL) CLINICAL HISTORY: Acute cough MQ: XC2_6 EXAM DATE/TIME: 07/08/2024 3:31 PM COMPARISON: 11/15/2023 RESULT: Lines, tubes, and devices: Left cardiac pacer and leads is unchanged Lungs and pleura: No consolidation. No lung mass. No pleural effusion. No pneumothorax. Cardiomediastinal silhouette: Normal cardiomediastinal silhouette. Bones and soft tissues: Degenerative change and scoliosis. IMPRESSION: No acute radiographic abnormality. 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 Transcribe Date/Time: Jul 09 2024 11:46A Dictated by : PERLA ONEILL MD This examination was interpreted and the report reviewed and electronically signed by: PERLA ONEILL MD on Jul 09 2024 11:47AM EST [id number] Normal [facility] CNPPadmini 07-01-2024 CNPN Telephone (FAMPWS) ----- NADIRSANDRA ([id number]) 1945 F Date Time Provider Department 07/01/24 MANDEEP HOUSER FAMPWS During your visit today, we recorded the following information about you: Mandeep Houser DO 07/01/2024 12:20 PM Signed The following approved medication requests have been transmitted electronically. Requested Prescriptions Signed Prescriptions Disp Refills doxycycline (VIBRA-TABS) 100 mg tablet 20 tablet 0 Sig: Take 1 tablet by mouth two times a day for 10 days. Authorizing Provider: MANDEEP HOUSER DO Allergies As of Date: 07/01/2024 Noted Allergy Reaction EMILIO INHIBITORS 05/03/2020 5 - Intolerance Comments: Short of breath, symptoms of heart failure BETA-BLOCKERS (BETA-ADRENERGIC BL*05/03/2020 5 - Intolerance Comments: Short of breath, symptoms of heart failure AUGMENTIN (AMOXICILLIN-POT CLAVUL*01/23/2013 8 - GI Upset CODEINE 10/24/2012 1 - Mental Status Change Comments: Patient felt like she was made out of lead ENTRESTO (SACUBITRIL-VALSARTAN) 02/07/2024 5 - Intolerance LIPITOR (ATORVASTATIN) 05/05/2020 17 - Myalgia Comments: Muscle aches SULFA (SULFONAMIDE ANTIBIOTICS) 04/28/2020 5 - Intolerance AMLODIPINE 04/28/2020 5 - Intolerance Comments: lightheaded Date Reviewed: 02/07/2024 Reviewed by: Yessica Quintero MA - Fully Assessed Order(s):[] doxycycline (VIBRA-TABS) 100 mg tabletTake 1 tablet by mouth two times a day for 10 days.Disp: 20 tabletRfl: 0 Prescriptions as of 08/01/2024 - furosemide (LASIX) 20 mg tablet Take 1 tablet by mouth once daily. - levothyroxine (LEVOXYL) 100 mcg tablet Take 1 tablet by mouth daily before breakfast. - losartan (COZAAR) 25 mg tablet Take 1 tablet by mouth once daily. - aluminum-magnesium hydroxide-simethicone 200-200-20 mg/5 mL suspension Take 30 mL by mouth every 6 hours as needed. - dicyclomine (BENTYL) 10 mg capsule Take 1 capsule by mouth three times a day as needed (abdominal pain) for up to 20 doses. - metoprolol succinate ER (TOPROL XL) 25 mg 24 hr tablet Take 1 tablet by mouth daily at bedtime. - acetaminophen (TYLENOL) 500 mg tablet Take 2 tablets by mouth every 8 hours as needed for pain. - cyanocobalamin (VITAMIN B-12) 1,000 mcg tab Take 1 tablet by mouth once daily. - Cholecalciferol, Vitamin D3, 50 mcg (2,000 unit) cap Take 2 capsules by mouth once daily. - aspirin, enteric coated (ECOTRIN LOW STRENGTH) 81 mg EC tablet Take 1 tablet by mouth once daily. Problem List As Of Date 07/01/2024 Noted Resolved IBS (irritable bowel syndrome) [K58.9] 01/23/2013 Palpitations [R00.2] 12/16/2014 Obesity, Class I, BMI 30-34.9 [E66.811] 03/10/2020 Shortness of breath [R06.02] 05/03/2020 06/14/2020 Acute on chronic systolic CHF (congestive heart*05/03/2020 Homozygous Factor V Leiden mutation (HCC) [D68.*05/03/2020 Hypothyroidism [E03.9] 01/24/2018 Chest pain [R07.9] 05/03/2020 06/14/2020 Post-operative state [Z98.890] 05/24/2020 06/14/2020 Rectocele [N81.6] 05/25/2020 Cystocele, midline [N81.11] 05/25/2020 Aspiration pneumonia (HCC) [J69.0] 05/30/2020 09/22/2020 Acute acalculous cholecystitis [K81.0] 05/30/2020 Primary hypertension [I10] 06/14/2020 Acute idiopathic gout involving toe of left cristal*09/22/2020 Diverticulitis [K57.92] 09/29/2020 Hypokalemia [E87.6] 09/29/2020 Hospital discharge follow-up [Z09] 12/06/2020 Tubular adenoma of colon [D12.6] 12/09/2020 Mixed hyperlipidemia [E78.2] 12/29/2020 Chronic pain of right ankle [M25.571, G89.29] 12/29/2020 Kidney insufficiency [N28.9] 12/29/2020 Chronic systolic congestive heart failure (HCC)*02/14/2021 Valvular heart disease [I38] 04/06/2021 Colon cancer screening [Z12.11] 04/06/2021 Left bundle branch block [I44.7] 05/23/2021 Left shoulder pain [M25.512] 07/11/2021 Lateral epicondylitis of left elbow [M77.12] 07/11/2021 Cardiomegaly [I51.7] 02/13/2022 Chronic bilateral thoracic back pain [M54.6, G8*07/18/2022 Rib pain on right side [R07.81] 07/18/2022 Somatic dysfunction of rib [M99.08] 07/18/2022 Somatic dysfunction of spine, thoracic [M99.02] 07/18/2022 Somatic dysfunction of spine, cervical [M99.01] 07/18/2022 Foot drop, right [M21.371] 08/02/2022 Arthrosis of ankle, right [M19.071] 08/02/2022 Coronary artery disease involving [place] lopez*08/02/2022 Vitamin D deficiency [E55.9] 08/02/2022 Somatic dysfunction of head region [M99.00] 08/10/2022 Chronic neck pain [M54.2, G89.29] 08/24/2022 Chronic bronchitis (HCC) [J42] 09/11/2022 SVT (supraventricular tachycardia) (HCC) [I47.1*09/11/2022 Combined systolic and diastolic cardiac dysfunc*09/11/2022 Hypothyroidism, acquired [E03.9] 04/17/2023 Acute decompensated heart failure (HCC) [I50.9] 07/10/2023 Nonischemic cardiomyopathy (HCC) [I42.8] 07/10/2023 Acute on chronic combined systolic and diastoli*07/11/2023 Bradycardia [R00.1] 07/13/2023 Ac (more content not included)... [facility] CNOVon 06-20-2024 CNOV Office Visit (FAMPWS ) ----- SANDRA SCHMITZ ([id number]) 1945 F Date Time Provider Department 06/20/24 2:20 PM MANDEEP HOUSER FAMPWS During your visit today, we recorded the following information about you: Mandeep Houser, 06/20/2024 4:15 PM Signed CC: Sandra Schmitz is a 78 year old female who presents to the office for OMT HPI: Acute on chronic back pain, started yesterday with significant mid to lower back pain. Has been up doing a lot around her home. Otherwise doesn't know what started or triggered her symptoms, no new bowel or bladder changes. Pain is worse when moving from sitting to standing or with standing or walking. No trauma that she is aware of. Pain is severe, has been taking tylenol and using ice and heating pad without relief of symptoms. She is not able to take NSAIDs. Has been doing a lot of new exercise with cardiac rehab which has been held since her back pain flare up. Had improvements after her OMT PAST MEDICAL HISTORY Diagnosis Date Acute acalculous cholecystitis 05/30/2020 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 09/22/2020 Acute on chronic systolic CHF (congestive heart failure) ([facility]) 05/03/2020 Aspiration pneumonia ([facility]) 05/30/2020 Chest pain 05/03/2020 Chest pressure 01/23/2013 Chronic diastolic congestive heart failure ([facility]) 02/14/2021 Clostridium difficile diarrhea 09/28/2020 Complete uterovaginal prolapse Cystocele, midline Essential hypertension 06/14/2020 Homozygous Factor V Leiden mutation ([facility]) 05/03/2020 Hypothyroidism IBS (irritable bowel syndrome) 01/23/2013 Palpitation CHRONIC Post-operative state 05/24/2020 Rectocele 05/25/2020 Shortness of breath 05/03/2020 Status post laparoscopic hysterectomy 05/30/2020 Tubular adenoma of colon 12/09/2020 Uterine prolapse 05/03/2020 PAST SURGICAL HISTORY Procedure Laterality Date COLONOSCOPY 01/07/2015 COLONOSCOPY 12/05/2021 repeat in 5 years COLONOSCOPY GEN ANES 12/06/2009 X3 LAST ONE IN 2009 EGD 11/08/2012 EGD 12/05/2021 INSERT/REPL DEFIB LEAD/GENER OTHR 07/2023 w/ Pacemaker PAST SURGICAL HISTORY OF 05/14/1999 left foot bunionectomy w/screws PAST SURGICAL HISTORY OF 05/14/1981 ectopic w/tube removal PAST SURGICAL HISTORY OF 2009 CYST REMOVED FROM UTERUS PAST SURGICAL HISTORY OF 05/24/2020 TVH, partial colpectomy, anterior colporrhaphy, Dennis transobturator midurethral sling, cystourethroscopy, rectocele repair with perineorrhaphy, laparoscopic lysis of adhesions and excision of bilateral adnexal structures PAST SURGICAL HISTORY OF 09/07/2020 Laparoscopic cholecystectomy with intraoperative cholangiograms. Dr. Ragsdale Current Outpatient Medications Medication Sig furosemide (LASIX) 20 mg tablet Take 1 tablet by mouth once daily. levothyroxine (LEVOXYL) 100 mcg tablet Take 1 tablet by mouth daily before breakfast. losartan (COZAAR) 25 mg tablet Take 1 tablet by mouth once daily. aluminum-magnesium hydroxide-simethicone 200-200-20 mg/5 mL suspension Take 30 mL by mouth every 6 hours as needed. dicyclomine (BENTYL) 10 mg capsule Take 1 capsule by mouth three times a day as needed (abdominal pain) for up to 20 doses. metoprolol succinate ER (TOPROL XL) 25 mg 24 hr tablet Take 1 tablet by mouth daily at bedtime. acetaminophen (TYLENOL) 500 mg tablet Take 2 tablets by mouth every 8 hours as needed for pain. cyanocobalamin (VITAMIN B-12) 1,000 mcg tab Take 1 tablet by mouth once daily. Cholecalciferol, Vitamin D3, 50 mcg (2,000 unit) cap Take 2 capsules by mouth once daily. aspirin, enteric coated (ECOTRIN LOW STRENGTH) 81 mg EC tablet Take 1 tablet by mouth once daily. No current facility-administered medications for this visit. ALLERGIES Allergen Reactions Emilio Inhibitors Intolerance Short of breath, symptoms of heart failure Beta-Blockers (Beta* Intolerance Short of breath, symptoms of heart failure Augmentin [Amoxicil* GI Upset Codeine Mental Status Change Patient felt like she was made out of lead Entresto [Sacubitri* Intolerance Lipitor [Atorvastat* Myalgia Muscle aches Sulfa (Sulfonamide * Intolerance Amlodipine Intolerance lightheaded Social History Tobacco Use Smoking status: Former Current packs/day: 0.00 Types: Cigarettes Quit date: 10/22/2002 Years since quittin.6 Smokeless tobacco: Never Vaping Use Vaping status: Never Used Substance Use Topics Alcohol use: No Drug use: No ROS: See HPI PE: There were no vitals taken for this visit. Gen: AANDOX3, she appears uncomfortable HEENT: PERRLA, EOMs intact b/l, nares without drainage, pharynx without erythema, exudate, lesions, or drainage. Uvula midline. Neck: supple, No cervical LAD, no thyromegaly, no carotid bruits, suboccipital fullness right head, C3-6NRrSBr Left 7th rib inhalation dysfunction posterior T3-10ERrSBl L1-2NRrSBr Right a (more content not included)... [facility] CNCOon 06-06-2024 CNCO Letter Text [facility] CNOVon 05-30-2024 CNOV Office Visit (FAMPWS ) ----- SANDRA SCHMITZ ([id number]) 1945 F [place] [employer]* Date Time Provider Department 05/30/24 3:20 PM MANDEEP HOUSER FAMPWS During your visit today, we recorded the following information about you: Mandeep Houser DO 05/30/2024 5:29 PM Signed CC: Sandra Schmitz is a 78 year old female who presents to the office for OMT HPI: Acute on chronic back pain, intermittent symptoms with significant mid to lower back pain. Has been up doing a lot around her home. Otherwise doesn't know what started or triggered her symptoms, but does have significant lumbar scoliosis and arthritis, denies any new bowel or bladder changes. Pain is worse when moving from sitting to standing or with standing or walking. No trauma that she is aware of. Pain is severe, has been taking tylenol and using ice and heating pad without relief of symptoms. She is not able to take NSAIDs. Has been doing a lot of new exercise with cardiac rehab which has been held since her back pain flare up. Had improvements after her OMT PAST MEDICAL HISTORY Diagnosis Date Acute acalculous cholecystitis 05/30/2020 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 09/22/2020 Acute on chronic systolic CHF (congestive heart failure) ([facility]) 05/03/2020 Aspiration pneumonia ([facility]) 05/30/2020 Chest pain 05/03/2020 Chest pressure 01/23/2013 Chronic diastolic congestive heart failure ([facility]) 02/14/2021 Clostridium difficile diarrhea 09/28/2020 Complete uterovaginal prolapse Cystocele, midline Essential hypertension 06/14/2020 Homozygous Factor V Leiden mutation ([facility]) 05/03/2020 Hypothyroidism IBS (irritable bowel syndrome) 01/23/2013 Palpitation CHRONIC Post-operative state 05/24/2020 Rectocele 05/25/2020 Shortness of breath 05/03/2020 Status post laparoscopic hysterectomy 05/30/2020 Tubular adenoma of colon 12/09/2020 Uterine prolapse 05/03/2020 PAST SURGICAL HISTORY Procedure Laterality Date COLONOSCOPY 01/07/2015 COLONOSCOPY 12/05/2021 repeat in 5 years COLONOSCOPY GEN ANES 12/06/2009 X3 LAST ONE IN 2009 EGD 11/08/2012 EGD 12/05/2021 INSERT/REPL DEFIB LEAD/GENER OTHR 07/2023 w/ Pacemaker PAST SURGICAL HISTORY OF 05/14/1999 left foot bunionectomy w/screws PAST SURGICAL HISTORY OF 05/14/1981 ectopic w/tube removal PAST SURGICAL HISTORY OF 2009 CYST REMOVED FROM UTERUS PAST SURGICAL HISTORY OF 05/24/2020 TVH, partial colpectomy, anterior colporrhaphy, Dennis transobturator midurethral sling, cystourethroscopy, rectocele repair with perineorrhaphy, laparoscopic lysis of adhesions and excision of bilateral adnexal structures PAST SURGICAL HISTORY OF 09/07/2020 Laparoscopic cholecystectomy with intraoperative cholangiograms. Dr. Ragsdale Current Outpatient Medications Medication Sig furosemide (LASIX) 20 mg tablet Take 1 tablet by mouth once daily. levothyroxine (LEVOXYL) 100 mcg tablet Take 1 tablet by mouth daily before breakfast. losartan (COZAAR) 25 mg tablet Take 1 tablet by mouth once daily. aluminum-magnesium hydroxide-simethicone 200-200-20 mg/5 mL suspension Take 30 mL by mouth every 6 hours as needed. dicyclomine (BENTYL) 10 mg capsule Take 1 capsule by mouth three times a day as needed (abdominal pain) for up to 20 doses. metoprolol succinate ER (TOPROL XL) 25 mg 24 hr tablet Take 1 tablet by mouth daily at bedtime. acetaminophen (TYLENOL) 500 mg tablet Take 2 tablets by mouth every 8 hours as needed for pain. cyanocobalamin (VITAMIN B-12) 1,000 mcg tab Take 1 tablet by mouth once daily. Cholecalciferol, Vitamin D3, 50 mcg (2,000 unit) cap Take 2 capsules by mouth once daily. aspirin, enteric coated (ECOTRIN LOW STRENGTH) 81 mg EC tablet Take 1 tablet by mouth once daily. No current facility-administered medications for this visit. ALLERGIES Allergen Reactions Emilio Inhibitors Intolerance Short of breath, symptoms of heart failure Beta-Blockers (Beta* Intolerance Short of breath, symptoms of heart failure Augmentin [Amoxicil* GI Upset Codeine Mental Status Change Patient felt like she was made out of lead Entresto [Sacubitri* Intolerance Lipitor [Atorvastat* Myalgia Muscle aches Sulfa (Sulfonamide * Intolerance Amlodipine Intolerance lightheaded Social History Tobacco Use Smoking status: Former Current packs/day: 0.00 Types: Cigarettes Quit date: 10/22/2002 Years since quittin.6 Smokeless tobacco: Never Vaping Use Vaping status: Never Used Substance Use Topics Alcohol use: No Drug use: No ROS: See HPI PE: There were no vitals taken for this visit. Gen: AANDOX3, she appears uncomfortable HEENT: PERRLA, EOMs intact b/l, nares without drainage, pharynx without erythema, exudate, lesions, or drainage. Uvula midline. Neck: supple, No cervical LAD, no thyromegaly, no carotid bruits, suboccipital fullness right head, C3-6NRrSBr (more content not included)... [facility] CNOVon 05-12-2024 CNOV Office Visit (FAMPWS ) ----- SANDRA SCHMITZ ([id number]) 1945 F [place] Date Time Provider Department 05/12/24 3:20 PM [facility] your visit today, we recorded the following information about you: Mandeep Houser, 05/12/2024 4:24 PM Signed CC: Sandra Schmitz is a 78 year old female who presents to the office for OMT HPI: Acute on chronic back pain, started yesterday with significant mid to lower back pain. Has been up doing a lot around her home. Otherwise doesn't know what started or triggered her symptoms, no new bowel or bladder changes. Pain is worse when moving from sitting to standing or with standing or walking. No trauma that she is aware of. Pain is severe, has been taking tylenol and using ice and heating pad without relief of symptoms. She is not able to take NSAIDs. Has been doing a lot of new exercise with cardiac rehab which has been held since her back pain flare up. Had improvements after her OMT PAST MEDICAL HISTORY Diagnosis Date Acute acalculous cholecystitis 05/30/2020 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 09/22/2020 Acute on chronic systolic CHF (congestive heart failure) ([facility]) 05/03/2020 Aspiration pneumonia ([facility]) 05/30/2020 Chest pain 05/03/2020 Chest pressure 01/23/2013 Chronic diastolic congestive heart failure ([facility]) 02/14/2021 Clostridium difficile diarrhea 09/28/2020 Complete uterovaginal prolapse Cystocele, midline Essential hypertension 06/14/2020 Homozygous Factor V Leiden mutation ([facility]) 05/03/2020 Hypothyroidism IBS (irritable bowel syndrome) 01/23/2013 Palpitation CHRONIC Post-operative state 05/24/2020 Rectocele 05/25/2020 Shortness of breath 05/03/2020 Status post laparoscopic hysterectomy 05/30/2020 Tubular adenoma of colon 12/09/2020 Uterine prolapse 05/03/2020 PAST SURGICAL HISTORY Procedure Laterality Date COLONOSCOPY 01/07/2015 COLONOSCOPY 12/05/2021 repeat in 5 years COLONOSCOPY GEN ANES 12/06/2009 X3 LAST ONE IN 2009 EGD 11/08/2012 EGD 12/05/2021 INSERT/REPL DEFIB LEAD/GENER OTHR 07/2023 w/ Pacemaker PAST SURGICAL HISTORY OF 05/14/1999 left foot bunionectomy w/screws PAST SURGICAL HISTORY OF 05/14/1981 ectopic w/tube removal PAST SURGICAL HISTORY OF 2009 CYST REMOVED FROM UTERUS PAST SURGICAL HISTORY OF 05/24/2020 TVH, partial colpectomy, anterior colporrhaphy, Dennis transobturator midurethral sling, cystourethroscopy, rectocele repair with perineorrhaphy, laparoscopic lysis of adhesions and excision of bilateral adnexal structures PAST SURGICAL HISTORY OF 09/07/2020 Laparoscopic cholecystectomy with intraoperative cholangiograms. Dr. Ragsdale Current Outpatient Medications Medication Sig furosemide (LASIX) 20 mg tablet Take 1 tablet by mouth once daily. levothyroxine (LEVOXYL) 100 mcg tablet Take 1 tablet by mouth daily before breakfast. losartan (COZAAR) 25 mg tablet Take 1 tablet by mouth once daily. aluminum-magnesium hydroxide-simethicone 200-200-20 mg/5 mL suspension Take 30 mL by mouth every 6 hours as needed. dicyclomine (BENTYL) 10 mg capsule Take 1 capsule by mouth three times a day as needed (abdominal pain) for up to 20 doses. metoprolol succinate ER (TOPROL XL) 25 mg 24 hr tablet Take 1 tablet by mouth daily at bedtime. acetaminophen (TYLENOL) 500 mg tablet Take 2 tablets by mouth every 8 hours as needed for pain. cyanocobalamin (VITAMIN B-12) 1,000 mcg tab Take 1 tablet by mouth once daily. Cholecalciferol, Vitamin D3, 50 mcg (2,000 unit) cap Take 2 capsules by mouth once daily. aspirin, enteric coated (ECOTRIN LOW STRENGTH) 81 mg EC tablet Take 1 tablet by mouth once daily. No current facility-administered medications for this visit. ALLERGIES Allergen Reactions Emilio Inhibitors Intolerance Short of breath, symptoms of heart failure Beta-Blockers (Beta* Intolerance Short of breath, symptoms of heart failure Augmentin [Amoxicil* GI Upset Codeine Mental Status Change Patient felt like she was made out of lead Entresto [Sacubitri* Intolerance Lipitor [Atorvastat* Myalgia Muscle aches Sulfa (Sulfonamide * Intolerance Amlodipine Intolerance lightheaded Social History Tobacco Use Smoking status: Former Current packs/day: 0.00 Types: Cigarettes Quit date: 10/22/2002 Years since quittin.5 Smokeless tobacco: Never Vaping Use Vaping status: Never Used Substance Use Topics Alcohol use: No Drug use: No ROS: See HPI PE: There were no vitals taken for this visit. Gen: AANDOX3, she appears uncomfortable HEENT: PERRLA, EOMs intact b/l, nares without drainage, pharynx without erythema, exudate, lesions, or drainage. Uvula midline. Neck: supple, No cervical LAD, no thyromegaly, no carotid bruits, suboccipital fullness right head, C3-6NRrSBr Right 7th and 5th rib inhalation dysfunction posterior T3-10ERrSBl (more content not included)... [facility] CBC W Auto Differential pane l (Bld)on 04-22-2024 Basophils (Bld) [#/Vol] 0.11 10*3/uL High [facility] Basophils/100 WBC (Bld) 0.8 % [facility] Differential cell count method Nom (Bld) Auto [facility] Eosinophils (Bld) [#/Vol] 0.19 10*3/uL [facility] Eosinophils/100 WBC (Bld) 1.3 % [facility] Erythrocyte distribution width (RBC) [Ratio] 14.1 % 11.5 - 15.0 % [facility] Hematocrit (Bld) [Volume fraction] 41.0 % 36.0 - 46.0 % [facility] Hemoglobin (Bld) [Mass/Vol] 12.5 g/dL 11.5 - 15.5 g/dL [facility] Immature granulocytes (Bld) [#/Vol] 0.09 10*3/uL [facility] Immature granulocytes/100 WBC (Bld) 0.6 % [facility] Interpretation and review of laboratory results Abnormal [facility] Lymphocytes (Bld) [#/Vol] 4.47 10*3/uL High [facility] Lymphocytes/100 WBC (Bld) 31.0 % [facility] MCH (RBC) [Entitic mass] 28.0 pg 26.0 - 34.0 pg [facility] MCHC (RBC) [Mass/Vol] 30.5 g/dL 30.5 - 36.0 g/dL [facility] MCV (RBC) [Entitic vol] 91.7 fL 80.0 - 100.0 fL [facility] Monocytes (Bld) [#/Vol] 1.29 10*3/uL High NINF [facility] Monocytes/100 WBC (Bld) 8.9 % [facility] Neutrophils (Bld) [#/Vol] 8.29 10*3/uL High [facility] Neutrophils/100 WBC (Bld) 57.4 % [facility] Nucleated RBC (Bld) [#/Vol] NINF [facility] Nucleated RBC/100 WBC (Bld) [Ratio] 0.0 % /100 WBC [facility] Platelet mean volume (Bld) [Entitic vol] 10.4 fL 9.0 - 12.7 fL [facility] Platelets (Bld) [#/Vol] 317 10*3/uL [facility] RBC (Bld) [#/Vol] 4.47 10*6/uL 3.90 - 5.2 0 m/uL [facility] WBC (Bld) [#/Vol] 14.44 10*3/uL [facility] Basophils (Bld) [#/Vol] 0.11 10*3/uL High <0.11 [facility] Comment on above: Order Comment: Speci men Type: BLOOD SPECIMENOrdering Facility: [facility] Address: [address] [place] [address] Performed By: #### 5 7021-8 ####[facility] LABCLIA [id number] [place] [address] [place] Basophils/100 WBC (Bld) 0.8 % [facility] Comment on above: Order Comment: Speci men Type: BLOOD SPECIMENOrdering Facility: [facility] Address: [address] [place] [address] Performed By: #### 5 7021-8 ####[facility] LABCLIA [id number] [place] [address] [place] Differential cell count method Nom (Bld) Auto [facility] Comment on above: Order Comment: Speci men Type: BLOOD SPECIMENOrdering Facility: [facility] Address: [address] [place] [address] Performed By: #### 5 7021-8 ####[facility] LABCLIA [id number] [place] [address] [place] Eosinophils (Bld) [#/Vol] 0.19 10*3/uL Normal <0.46 [facility] Comment on above: Order Comment: Speci men Type: BLOOD SPECIMENOrdering Facility: [facility] Address: [address] [place] [address] Performed By: #### 5 7021-8 ####[facility] LABCLIA [id number] [place] [address] [place] Eosinophils/100 WBC (Bld) 1.3 % [facility] Comment on above: Order Comment: Speci men Type: BLOOD SPECIMENOrdering Facility: [facility] Address: [address] [place] [address] Performed By: #### 5 7021-8 ####[facility] LABCLIA [id number] [place] [address] [place] Erythrocyte distribution width (RBC) [Ratio] 14.1 % Normal 11.5-15.0 [facility] Comment on above: Order Comment: Speci men Type: BLOOD SPECIMENOrdering Facility: [facility] Address: [address] [place] [address] Performed By: #### 5 7021-8 ####[facility] LABCLIA [id number] [place] [address] [place] Hematocrit (Bld) [Volume fraction] 41.0 % Normal 36.0-46.0 [facility] Comment on above: Order Comment: Speci men Type: BLOOD SPECIMENOrdering Facility: [facility] Address: [address] [place] [address] Performed By: #### 5 7021-8 ####[facility] LABCLIA [id number] [place] [address] [place] Hemoglobin (Bld) [Mass/Vol] 12.5 g/dL Normal 11.5-15.5 [facility] Comment on above: Order Comment: Speci men Type: BLOOD SPECIMENOrdering Facility: [facility] Address: [address] [place] [address] Performed By: #### 5 7021-8 ####[facility] LABCLIA [id number] [place] [address] [place] Immature granulocytes (Bld) [#/Vol] 0.09 10*3/uL Normal <0.10 [facility] Comment on above: Order Comment: Speci men Type: BLOOD SPECIMENOrdering Facility: [facility] Address: [address] [place] [address] Performed By: #### 5 7021-8 ####[facility] LABCLIA [id number] [place] [address] [place] Immature granulocytes/100 WBC (Bld) 0.6 % [facility] Comment on above: Order Comment: Speci men Type: BLOOD SPECIMENOrdering Facility: [facility] Address: [address] [place] [address] Performed By: #### 5 7021-8 ####[facility] LABCLIA [id number] [place] [address] [place] Lymphocytes (Bld) [#/Vol] 4.47 10*3/uL High 1.00-4.00 [facility] Comment on above: Order Comment: Speci men Type: BLOOD SPECIMENOrdering Facility: [facility] Address: [address] [place] [address] Performed By: #### 5 7021-8 ####[facility] LABIA [id number] [place] [address] [place] Lymphocytes/100 WBC (Bld) 31.0 % [facility] Comment on above: Order Comment: Speci men Type: BLOOD SPECIMENOrdering Facility: [facility] Address: [address] [place] [address] Performed By: #### 5 7021-8 ####[facility] LABIA [id number] [place] [address] [place] MCH (RBC) [Entitic mass] 28.0 pg Normal 26.0-34.0 [facility] Comment on above: Order Comment: Speci men Type: BLOOD SPECIMENOrdering Facility: [facility] Address: [address] [place] [address] Performed By: #### 5 7021-8 ####[facility] LABIA [id number] [place] [address] [place] MCHC (RBC) [Mass/Vol] 30.5 g/dL Normal 30.5-36.0 [facility] Comment on above: Order Comment: Speci men Type: BLOOD SPECIMENOrdering Facility: [facility] Address: [address] [place] [address] Performed By: #### 5 7021-8 ####[facility] LABIA [id number] [place] [address] [place] MCV (RBC) [Entitic vol] 91.7 fL Normal 80.0-100.0 [facility] Comment on above: Order Comment: Speci men Type: BLOOD SPECIMENOrdering Facility: [facility] Address: [address] [place] [address] Performed By: #### 5 7021-8 ####[facility] LABCLIA [id number] [place] [address] [place] Monocytes (Bld) [#/Vol] 1.29 10*3/uL High <0.87 [facility] Comment on above: Order Comment: Speci men Type: BLOOD SPECIMENOrdering Facility: [facility] Address: [address] [place] [address] Performed By: #### 5 7021-8 ####[facility] LABCLIA [id number] [place] [address] [place] Monocytes/100 WBC (Bld) 8.9 % [facility] Comment on above: Order Comment: Speci men Type: BLOOD SPECIMENOrdering Facility: [facility] Address: [address] [place] [address] Performed By: #### 5 7021-8 ####[facility] LABCLIA [id number] [place] [address] [place] Neutrophils (Bld) [#/Vol] 8.29 10*3/uL High 1.45-7.50 [facility] Comment on above: Order Comment: Speci men Type: BLOOD SPECIMENOrdering Facility: [facility] Address: [address] [place] [address] Performed By: #### 5 7021-8 ####[facility] LABCLIA [id number] [place] [address] [place] Neutrophils/100 WBC (Bld) 57.4 % [facility] Comment on above: Order Comment: Speci men Type: BLOOD SPECIMENOrdering Facility: [facility] Address: [address] [place] [address] Performed By: #### 5 7021-8 ####[facility] LABCLIA [id number] [place] [address] [place] Nucleated RBC (Bld) [#/Vol] 10*3/uL Normal <0.01 [facility] Comment on above: Order Comment: Speci men Type: BLOOD SPECIMENOrdering Facility: [facility] Address: [address] [place] [address] Performed By: #### 5 7021-8 ####[facility] LABCLIA [id number] [place] [address] [place] Nucleated RBC/100 WBC (Bld) [Ratio] 0.0 /100 WBC [facility] Comment on above: Order Comment: Speci men Type: BLOOD SPECIMENOrdering Facility: [facility] Address: [address] [place] [address] Performed By: #### 5 7021-8 ####[facility] LABCLIA [id number] [place] [address] [place] Platelet mean volume (Bld) [Entitic vol] 10.4 fL Normal 9.0-12.7 [facility] Comment on above: Order Comment: Speci men Type: BLOOD SPECIMENOrdering Facility: [facility] Address: [address] [place] [address] Performed By: #### 5 7021-8 ####[facility] LABCLIA [id number] [place] [address] [place] Platelets (Bld) [#/Vol] 317 10*3/uL Normal 150-400 [facility] Comment on above: Order Comment: Speci men Type: BLOOD SPECIMENOrdering Facility: [facility] Address: [address] [place] [address] Performed By: #### 5 7021-8 ####[facility] LABCLIA [id number] [place] [address] [place] RBC (Bld) [#/Vol] 4.47 10*6/uL Normal 3.90-5.20 [facility] Comment on above: Order Comment: Speci men Type: BLOOD SPECIMENOrdering Facility: [facility] Address: [address] [place] [address] Performed By: #### 5 7021-8 ####[facility] LABCLIA [id number] [place] [id number] [place] WBC (Bld) [#/Vol] 14.44 10*3/uL High 3.70-11.00 [facility] Comment on above: Order Comment: Speci men Type: BLOOD SPECIMENOrdering Facility: [facility] Address: [address] [place] [address] Performed By: #### 5 7021-8 ####[facility] LABCLIA [id number] [place] [id number] [place] CNOVon 04-22-2024 CNOV [facility] ----- SANDRA SCHMITZ ([id number]) 1945 F [place]* Date Time Provider Department 04/22/24 2:00 PM [facility] During your visit today, we recorded the following information about you: Mandeep Houser DO 04/22/2024 4:49 PM Signed CC: Sandra Schmitz is a 78 year old female who presents to the office for OMT HPI: Acute on chronic back pain, started yesterday with significant mid to lower back pain. Has been up doing a lot around her home. Otherwise doesn't know what started or triggered her symptoms, no new bowel or bladder changes. Pain is worse when moving from sitting to standing or with standing or walking. No trauma that she is aware of. Pain is severe, has been taking tylenol and using ice and heating pad without relief of symptoms. She is not able to take NSAIDs. Has been doing a lot of new exercise with cardiac rehab which has been held since her back pain flare up. Had improvements after her OMT Suprapubic pressure and aching, coming and going the last 2-3 days. Hx of UTI and diverticulitis in the past. No new fevers. Did feel like she had chills yesterday, not today. No nausea or vomiting. Has decreased fiber and drinking more fluids to see if this helps her symptoms PAST MEDICAL HISTORY Diagnosis Date Acute acalculous cholecystitis 05/30/2020 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 09/22/2020 Acute on chronic systolic CHF (congestive heart failure) ([facility]) 05/03/2020 Aspiration pneumonia ([facility]) 05/30/2020 Chest pain 05/03/2020 Chest pressure 01/23/2013 Chronic diastolic congestive heart failure ([facility]) 02/14/2021 Clostridium difficile diarrhea 09/28/2020 Complete uterovaginal prolapse Cystocele, midline Essential hypertension 06/14/2020 Homozygous Factor V Leiden mutation ([facility]) 05/03/2020 Hypothyroidism IBS (irritable bowel syndrome) 01/23/2013 Palpitation CHRONIC Post-operative state 05/24/2020 Rectocele 05/25/2020 Shortness of breath 05/03/2020 Status post laparoscopic hysterectomy 05/30/2020 Tubular adenoma of colon 12/09/2020 Uterine prolapse 05/03/2020 PAST SURGICAL HISTORY Procedure Laterality Date COLONOSCOPY 01/07/2015 COLONOSCOPY 12/05/2021 repeat in 5 years COLONOSCOPY GEN ANES 12/06/2009 X3 LAST ONE IN 2009 EGD 11/08/2012 EGD 12/05/2021 INSERT/REPL DEFIB LEAD/GENER OTHR 07/2023 w/ Pacemaker PAST SURGICAL HISTORY OF 05/14/1999 left foot bunionectomy w/screws PAST SURGICAL HISTORY OF 05/14/1981 ectopic w/tube removal PAST SURGICAL HISTORY OF 2009 CYST REMOVED FROM UTERUS PAST SURGICAL HISTORY OF 05/24/2020 TVH, partial colpectomy, anterior colporrhaphy, Dennis transobturator midurethral sling, cystourethroscopy, rectocele repair with perineorrhaphy, laparoscopic lysis of adhesions and excision of bilateral adnexal structures PAST SURGICAL HISTORY OF 09/07/2020 Laparoscopic cholecystectomy with intraoperative cholangiograms. Dr. Ragsdale Current Outpatient Medications Medication Sig furosemide (LASIX) 20 mg tablet Take 1 tablet by mouth once daily. levothyroxine (LEVOXYL) 100 mcg tablet Take 1 tablet by mouth daily before breakfast. losartan (COZAAR) 25 mg tablet Take 1 tablet by mouth once daily. aluminum-magnesium hydroxide-simethicone 200-200-20 mg/5 mL suspension Take 30 mL by mouth every 6 hours as needed. dicyclomine (BENTYL) 10 mg capsule Take 1 capsule by mouth three times a day as needed (abdominal pain) for up to 20 doses. metoprolol succinate ER (TOPROL XL) 25 mg 24 hr tablet Take 1 tablet by mouth daily at bedtime. acetaminophen (TYLENOL) 500 mg tablet Take 2 tablets by mouth every 8 hours as needed for pain. cyanocobalamin (VITAMIN B-12) 1,000 mcg tab Take 1 tablet by mouth once daily. Cholecalciferol, Vitamin D3, 50 mcg (2,000 unit) cap Take 2 capsules by mouth once daily. aspirin, enteric coated (ECOTRIN LOW STRENGTH) 81 mg EC tablet Take 1 tablet by mouth once daily. No current facility-administered medications for this visit. ALLERGIES Allergen Reactions Emilio Inhibitors Intolerance Short of breath, symptoms of heart failure Beta-Blockers (Beta* Intolerance Short of breath, symptoms of heart failure Augmentin [Amoxicil* GI Upset Codeine Mental Status Change Patient felt like she was made out of lead Entresto [Sacubitri* Intolerance Lipitor [Atorvastat* Myalgia Muscle aches Sulfa (Sulfonamide * Intolerance Amlodipine Intolerance lightheaded Social History Tobacco Use Smoking status: Former Current packs/day: 0.00 Types: Cigarettes Quit date: 10/22/2002 Years since quittin.5 Smokeless tobacco: Never Vaping Use Vaping status: Never Used Substance Use Topics Alcohol use: No Drug use: No ROS: See H PI PE: There were no vitals taken for this visit. Gen: AANDOX3, she appears uncomfortable HEENT: PERRLA, EOMs intact b (more content not included)... Normal [facility] CRP SerPl-ncon 04-22-2024 CRP [Mass/Vol] 5.4 mg/dL High <0.9 [facility] Comment on above: Order Comment: Speci men Type: BLOOD SPECIMENOrdering Facility: [facility] Address: [address] [place], [place] [address] Performed By: #### 3 040-3, 1987-09 ####[facility] LABCLIA [id number] [address] [address] [place] Comprehensive metabolic 2000 panelon 04-22-2024 Albumin [Mass/Vol] 4.0 g/dL Normal 3.9-4.9 [facility] Comment on above: Order Comment: Speci men Type: BLOOD SPECIMENOrdering Facility: [facility] Address: [address] [place] [address] Performed By: #### 3 016-3, 3024-7, 305-0, 18668-2 ####[facility] LABCLIA [id number] [place] [address] [place] ALP [Catalytic activity/Vol] 76 U/L Normal 34-123 [facility] Comment on above: Order Comment: Speci men Type: BLOOD SPECIMENOrdering Facility: [facility] Address: [address] [place] [address] Performed By: #### 3 016-3, 302-7, 305-0, 74754-3 ####[facility] LABCLIA [id number] [place] [address] [place] ALT [Catalytic activity/Vol] 8 U/L Normal 7-38 [facility] Comment on above: Order Comment: Speci men Type: BLOOD SPECIMENOrdering Facility: [facility] Address: [address] [place] [address] Performed By: #### 3 016-3, 3024-7, 305-0, 83919-8 ####[facility] LABCLIA [id number] [place] [id number] [place] Anion gap [Moles/Vol] 11 mmol/L Normal 8-15 [facility] Comment on above: Order Comment: Speci men Type: BLOOD SPECIMENOrdering Facility: [facility] Address: [address] [place] [address] Performed By: #### 3 016-3, 3024-7, 305-0, 46899-6 ####[facility] LABCLIA [id number] [place] [address] [place] AST [Catalytic activity/Vol] 14 U/L Normal 13-35 [facility] Comment on above: Order Comment: Speci men Type: BLOOD SPECIMENOrdering Facility: [facility] Address: [address] [place] [address] Performed By: #### 3 016-3, 3024-7, 305-0, 36263-4 ####[facility] LABCLIA [id number] [place] [address] [place] Bilirubin [Mass/Vol] 0.8 mg/dL Normal 0.2-1.3 [facility] Comment on above: Order Comment: Speci men Type: BLOOD SPECIMENOrdering Facility: [facility] Address: [address] [place] [address] Performed By: #### 3 016-3, 3024-7, 3050-0, 20211-8 ####[facility] LABIA [id number] [place] [address] [place] Calcium [Mass/Vol] 9.4 mg/dL Normal 8.5-10.2 [facility] Comment on above: Order Comment: Speci men Type: BLOOD SPECIMENOrdering Facility: [facility] Address: [address] [place] [address] Performed By: #### 3 016-3, 3024-7, 305-0, 67995-9 ####[facility] LABIA [id number] [place] [address] [place] Chloride [Moles/Vol] 103 mmol/L Normal 98-107 [facility] Comment on above: Order Comment: Speci men Type: BLOOD SPECIMENOrdering Facility: [facility] Address: [address] [place] [address] Performed By: #### 3 016-3, 3024-7, 305-0, 18684-4 ####[facility] LABCLIA [id number] [place] [address] [place] CO2 [Moles/Vol] 27 mmol/L Normal 22-30 [facility] Comment on above: Order Comment: Speci men Type: BLOOD SPECIMENOrdering Facility: [facility] Address: [address] [place] [address] Performed By: #### 3 016-3, 3024-7, 305-0, 11096-6 ####[facility] LABIA [id number] [place] [address] [place] Creatinine [Mass/Vol] 0.97 mg/dL High 0.58-0.96 [facility] Comment on above: Order Comment: Speci men Type: BLOOD SPECIMENOrdering Facility: [facility] Address: [address] [place] [address] Performed By: #### 3 016-3, 3024-7, 305-0, 82909-8 ####[facility] [id number] [place] [address] [place] Creatinine and Glomerular filtration rate.predicted panel (S/P/Bld) 60 mL/min/1.73m??? Normal >=60 [facility] Comment on above: Order Comment: Speci men Type: BLOOD SPECIMENOrdering Facility: [facility] Address: [address] [place] [address] Result Comment: Aaron mated Glomerular Filtration Rate (eGFR) is calculated using the 2020 CKD-EPI creatinine equation. This equation utilizes serum creatinine, sex, and age as parameters. The creatinine assay has traceable calibration to isotope dilution-mass spectrometry. Refer to KDIGO guidelines for clinical interpretation. In patients with unstable renal function, e.g. those with acute kidney injury, the eGFR may not accurately reflect actual GFR. Performed By: #### 3 016-3, 3024-7, 305-0, 05222-6 ####[facility] LABIA [id number] [place] [id number] [place] Glucose [Mass/Vol] 90 mg/dL Normal 74-99 [facility] Comment on above: Order Comment: Speci men Type: BLOOD SPECIMENOrdering Facility: [facility] Address: [address] [place] [address] Result Comment: The [place] Diabetes [employer] (ADA) provides guidance for cutoff values for fasting glucose and random glucose. The ADA defines fasting as no caloric intake for at least 8 hours. Fasting plasma glucose results between 100 to 125 mg/dL indicate increased risk for diabetes (prediabetes). Fasting plasma glucose results greater than or equal to 126 mg/dL meet the criteria for diagnosis of diabetes. In the absence of unequivocal hyperglycemia, results should be confirmed by repeat testing. In a patient with classic symptoms of hyperglycemia or hyperglycemic crisis, random plasma glucose results greater than or equal to 200 mg/dL meet the criteria for diagnosis of diabetes. Reference: Standards of Medical Care in Diabetes 2016, [place] [employer]. Diabetes Care. 2016.39(Suppl 1). Performed By: #### 3 016-3, 3024-7, 305-0, 92193-4 ####[facility] LABCLIA [id number] [place] [address] [place] Potassium [Moles/Vol] 4.1 mmol/L Normal 3.7-5.1 [facility] Comment on above: Order Comment: Lenard jesus Type: BLOOD SPECIMENOrdering Facility: [facility] Address: [address] [place] [address] Performed By: #### 3 016-3, 3024-7, 305-0, 02038-9 ####[facility] LABCLIA [id number] [place] [id number] [place] Protein [Mass/Vol] 7.4 g/dL Normal 6.3-8.0 [facility] Comment on above: Order Comment: Ernestinei men Type: BLOOD SPECIMENOrdering Facility: [facility] Address: [address] [place] [address] Performed By: #### 3 016-3, 3024-7, 305-0, 53268-5 ####[facility] LABCLIA [id number] [place] [address] [place] Sodium [Moles/Vol] 141 mmol/L Normal 136-144 [facility] Comment on above: Order Comment: Speci men Type: BLOOD SPECIMENOrdering Facility: [facility] Address: [address] [place] [address] Performed By: #### 3 016-3, 3024-7, 305-0, 57315-2 ####[facility] LABCLIA [id number] [place] [address] [place] Urea nitrogen [Mass/Vol] 19 mg/dL Normal 7-21 [facility] Comment on above: Order Comment: Speci men Type: BLOOD SPECIMENOrdering Facility: [facility] Address: [address] [place] [address] Performed By: #### 3 016-3, 3024-7, 305-0, 61475-0 ####[facility] LABCLIA [id number] [place] [address] [place] Lipase SerPl-cCncon 04-22-20 24 Lipase [Catalytic activity/Vol] 25 U/L Normal 16-61 [facility] Comment on above: Order Comment: Speci men Type: BLOOD SPECIMENOrdering Facility: [facility] Address: [address] [place] [address] Performed By: #### 3 040-3, 1987-09 ####[facility] LABCLIA [id number] [place] [id number] [place] T3Free SerPl-mCncon 04-22-20 24 Free T3 [Mass/Vol] 2.1 pg/mL Low 2.3-4.1 [facility] Comment on above: Order Comment: Speci men Type: BLOOD SPECIMENOrdering Facility: [facility] Address: [address] [place] [address] Performed By: #### 3 016-3, 3024-7, 305-0, 17486-5 ####[facility] LABCLIA [id number] [place] [id number] [place] T4 Free SerPl-mCncon 024 Free T4 [Mass/Vol] 1.6 ng/dL Normal 0.9-1.7 [facility] Comment on above: Order Comment: Speci men Type: BLOOD SPECIMENOrdering Facility: [facility] Address: [address] [place] [address] Performed By: #### 3 016-3, 3024-7, 3051-0, 14239-2 ####[facility] LABIA [id number] [place] [address] [place] TSH SerPl-aCncon 04-22-2024 TSH Qn 0.233 m[IU]/L Low 0.270-4.200 [facility] Comment on above: Order Comment: Speci men Type: BLOOD SPECIMENOrdering Facility: [facility] Address: [address] [place] [address] Performed By: #### 3 016-3, 3024-7, 3051-0, 83805-1 ####[facility] [id number] [place] [address] [place] UA DIP, URINE (POC)on 2023 BILIRUBIN UA (POCT) Negative Negative [facility] CLARITY UA (POCT) Clear [facility] COLOR UA (POCT) Yellow [facility] GLUCOSE UA (POCT) Negative Negative mg/dL [facility] Hemoglobin Ql (U) Negative Negative [facility] KETONE UA (POCT) Negative Negative mg/dL [facility] LEUKOCYTES UA (POCT) Negative [facility] NITRITE UA (POCT) Negative Negative [facility] PH UA (POCT) 6.0 4.5 - 8.0 [facility] Protein Ql (U) Negative Negative mg/dL [facility] SPECIFIC GRAVITY UA (POCT) 1.015 1.005 - 1.030 [facility] UROBILINOGEN UA (POCT) 0.2 Jeanette l E.U./dL [facility] Location:[facility] [place], [address] [facility], [place], [address] [facility] POINT OF CARE [facility] 12 Lead EKGon 03-27-2024 12 Lead EKG [facility] Cardiovascular Services [address] [place] [address] 12 Lead EKG 03/27/24 0108 MR#: [id number] Acct: [id number] Name: SANDRA SCHMITZ Rep #: [id number] : 1945 78 From: Yousuf Parker MD Attending Dr: Status: DEP ER Ordering Dr: Parker Nunez DO Date: 03/27/24 Location: ED Sex: F C Admitted: Test Reason : DYSP Blood Pressure : */* mmHG Vent. Rate : 109 BPM Atrial Rate : 109 BPM P-R Int : * ms QRS Dur : 134 ms QT Int : 370 ms P-R-T Axes : 10 -76 55 degrees QTcB Int : 498 ms Ventricular-paced rhythm with occasional Premature ventricular complexes and Fusion complexes Abnormal ECG Confirmed by TEO BRYAN, MONICA ([id number]), editorial director SINCERE HINSON ([id number]) on 03/27/2024 1:51:10 PM Referred By: Confirmed By: MONICA PARKER MD 03/27/24 1351 Date Yousuf Parker MD CC: Dr. Mandeep Houser DO; Parker Nunez DO Signed Normal [facility] Abdomen/Pelvis W IV Cont ONL Yon 03-27-2024 Abdomen/Pelvis W IV Cont ONLY [facility] Imaging Services [address] [address] Abdomen/Pelvis W IV Cont ONLY MR#: [id number] Acct: [id number] Name: SANDRA SCHMITZ Rep #: [id number] : 1945 F 78 From: Lacy Virk PCP: Dr. Mandeep Houser DO Status: REG ER Study: Abdomen/Pelvis W IV Cont ONLY Date of Exam: Exam# [id number] Ordering Dr: Parker Nunez DO [id number] EXAM: CT Abdomen And Pelvis W/ Contrast Injection HISTORY: abd pain TECHNIQUE: Routine protocol CT abdomen pelvis. IV Contrast: IV 100mL Isovue-370 . Oral Contrast: without. Sagittal and coronal images were reconstructed. RADIATION DOSAGE (If Supplied By Facility): CTDIvol = ( 16.62 ) mGy, DLP = ( 1232.39 ) mGycm Individualized dose optimization techniques were used for this CT. COMPARISON: None. LIMITATIONS: None. FINDINGS: LOWER CHEST: Minimal dependent atelectasis in the lung bases. Cardiac pacemaker leads noted. LIVER: Unremarkable. GALLBLADDER/BILE DUCTS: Gallbladder is surgically absent. PANCREAS: Unremarkable. SPLEEN: Unremarkable. ADRENAL GLANDS: Unremarkable. KIDNEYS / URETERS: Unremarkable. BOWEL / MESENTERY: Mildly dilated small bowel in the upper left midabdomen with prominent folds. Diverticula throughout the colon. No bowel obstruction. APPENDIX: Identified and normal. No evidence of acute appendicitis. PERITONEUM: No free air. No free fluid. VESSELS: Abdominal aorta is normal caliber. RETROPERITONEUM: Unremarkable. REPRODUCTIVE ORGANS: Uterus not identified. BLADDER: Unremarkable. ABDOMINAL WALL: Unremarkable. BONES: No acute abnormality. 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 OTHER: None. CT/Abdomen/Pelvis W IV Cont ONLY IMPRESSION: Mildly dilated small bowel prominent folds nonspecific can be seen with enteritis. No bowel obstruction. Colonic diverticulosis without evidence of acute diverticulitis. Electronically Signed: Lacy Pemberton MD at 3:17 EST , CC: Dr. Mandeep Houser DO; Parker Nunez DO 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 Apprentice: Signed Normal [facility] BNP,B-Type NATRIURETIC PEPTI Lizeth 03-27-2024 Natriuretic peptide B (Bld) [Mass/Vol] 268.9 pg/mL High 0-100 [facility] Comment on above: Performed By: #### L 501.5200, L100.0100, L500.3400, L500.2500, L300.8000, L503.6620, L501.2450 #### [facility] [address] [place], [address] Basic Metabolic Profile (BMP )on 03-27-2024 BUN/CRE 30.8 RATIO High 10-20 [facility] Comment on above: Performed By: #### L 501.5200, L100.0100, L500.3400, L500.2500, L300.8000, L503.6620, L501.2450 #### [facility] [address] [place], [address] CA,Total 9.1 mg/dL Normal 8.5-10.1 [facility] Comment on above: Performed By: #### L 501.5200, L100.0100, L500.3400, L500.2500, L300.8000, L503.6620, L501.2450 #### [facility] [address] [place], [address] Chloride [Moles/Vol] 105 mmol/L Normal 98-107 [facility] Comment on above: Performed By: #### L 501.5200, L100.0100, L500.3400, L500.2500, L300.8000, L503.6620, L501.2450 #### [facility] [address] [place], [address] CO2 [Moles/Vol] 28.0 mmol/L Normal 21.0-32.0 [facility] Comment on above: Performed By: #### L 501.5200, L100.0100, L500.3400, L500.2500, L300.8000, L503.6620, L501.2450 #### [facility] [address] [place], [address] Creatinine [Mass/Vol] 1.07 mg/dL High 0.55-1.02 [place] Comment on above: Result Comment: The validity of the calculated GFR GFRAA in patients over 70 years has not been determined. Clinical correlation is essential. Performed By: #### L 501.5200, L100.0100, L500.3400, L500.2500, L300.8000, L503.6620, L501.2450 #### [facility] [address] [place], [address] ECRCL 46.99 ml/min Normal [facility] Comment on above: Performed By: #### L 501.5200, L100.0100, L500.3400, L500.2500, L300.8000, L503.6620, L501.2450 #### [facility] [address] [place], [address] EST GFR - AA 64 mL/min Normal >60 [facility] Comment on above: Result Comment: Afri can [place] GFR Calc Performed By: #### L 501.5200, L100.0100, L500.3400, L500.2500, L300.8000, L503.6620, L501.2450 #### [facility] [address] [place], [address] GAP 6 Normal 5-15 [facility] Comment on above: Performed By: #### L 501.5200, L100.0100, L500.3400, L500.2500, L300.8000, L503.6620, L501.2450 #### [facility] [address] [place], [address] GFR/1.73 sq M.predicted among non-blacks MDRD (S/P/Bld) [Vol rate/Area] 53 mL/min/{1.73_m2} Low >60 [facility] Comment on above: Result Comment: Non- GFR Calc Performed By: #### L 501.5200, L100.0100, L500.3400, L500.2500, L300.8000, L503.6620, L501.2450 #### [facility] [address] [place], [address] Glucose [Mass/Vol] 103 mg/dL Normal 74-106 [facility] Comment on above: Result Comment: Fast ing Glucose result from 100 to 125 mg/dL suggests IMPAIRED HOMEOSTASIS per A.D.A. criteria. Performed By: #### L 501.5200, L100.0100, L500.3400, L500.2500, L300.8000, L503.6620, L501.2450 #### [facility] [address] [place], [address] Potassium [Moles/Vol] 3.8 mmol/L Normal 3.5-5.1 [facility] Comment on above: Performed By: #### L 501.5200, L100.0100, L500.3400, L500.2500, L300.8000, L503.6620, L501.2450 #### [facility] [address] [place], [address] Sodium [Moles/Vol] 139 mmol/L Normal 136-145 [facility] Comment on above: Performed By: #### L 501.5200, L100.0100, L500.3400, L500.2500, L300.8000, L503.6620, L501.2450 #### [facility] [address] [place], [address] Urea nitrogen [Mass/Vol] 33 mg/dL High 7-18 [facility] Comment on above: Performed By: #### L 501.5200, L100.0100, L500.3400, L500.2500, L300.8000, L503.6620, L501.2450 #### [facility] [address] [place], [address] CBC W/Diff, Automatedon 03-14 Absolute Lymph 3.11 X10 3/uL Normal 0.83-4.51 [facility] Comment on above: Performed By: #### L 501.5200, L100.0100, L500.3400, L500.2500, L300.8000, L503.6620, L501.2450 #### [facility] [address] [place], [address] Absolute Neut 8.8 X10 3/uL High 2.0-7.7 [facility] Comment on above: Performed By: #### L 501.5200, L100.0100, L500.3400, L500.2500, L300.8000, L503.6620, L501.2450 #### [facility] [address] [place], [address] Basophils/100 WBC (Bld) 0.9 % Normal 0-1 [facility] Comment on above: Performed By: #### L 501.5200, L100.0100, L500.3400, L500.2500, L300.8000, L503.6620, L501.2450 #### [facility] [address] [place], [address] Eosinophils/100 WBC (Bld) 2.3 % Normal 0-5 [facility] Comment on above: Performed By: #### L 501.5200, L100.0100, L500.3400, L500.2500, L300.8000, L503.6620, L501.2450 #### [facility] [address] [place], [address] Erythrocyte distribution width (RBC) [Ratio] 14.0 % Normal 11.6-14.6 [facility] Comment on above: Performed By: #### L 501.5200, L100.0100, L500.3400, L500.2500, L300.8000, L503.6620, L501.2450 #### [facility] [address] [place], [address] Hematocrit (Bld) [Volume fraction] 43.6 % Normal 37-47 [facility] Comment on above: Performed By: #### L 501.5200, L100.0100, L500.3400, L500.2500, L300.8000, L503.6620, L501.2450 #### [facility] [address] [place], [address] Hemoglobin (Bld) [Mass/Vol] 13.7 g/dL Normal 12.0-15.0 [facility] Comment on above: Performed By: #### L 501.5200, L100.0100, L500.3400, L500.2500, L300.8000, L503.6620, L501.2450 #### [facility] [address] [place], [address] IG% 1.100 High 0.0-0.9 [facility] Comment on above: Result Comment: IG% - Immature Granulocytes (promyelocytes, myelocytes and metamyelocytes) > 1% indicates that a LEFT SHIFT is Present. Performed By: #### L 501.5200, L100.0100, L500.3400, L500.2500, L300.8000, L503.6620, L501.2450 #### [facility] [address] [place], [address] Lymphocytes/100 WBC (Bld) 24.2 % Normal 19-41 [facility] Comment on above: Performed By: #### L 501.5200, L100.0100, L500.3400, L500.2500, L300.8000, L503.6620, L501.2450 #### [facility] [address] [place], [address] MCH (RBC) [Entitic mass] 28.9 pg Normal 27.0-32.0 [facility] Comment on above: Performed By: #### L 501.5200, L100.0100, L500.3400, L500.2500, L300.8000, L503.6620, L501.2450 #### [facility] [address] [place], [address] MCHC (RBC) [Mass/Vol] 31.4 g/dL Low 32-36 [facility] Comment on above: Performed By: #### L 501.5200, L100.0100, L500.3400, L500.2500, L300.8000, L503.6620, L501.2450 #### [facility] [address] [place], [address] MCV (RBC) [Entitic vol] 92.0 fL Normal 81-99 [facility] Comment on above: Performed By: #### L 501.5200, L100.0100, L500.3400, L500.2500, L300.8000, L503.6620, L501.2450 #### [facility] [address] [place], [address] Monocytes/100 WBC (Bld) 2.7 % Normal 0-10 [facility] Comment on above: Performed By: #### L 501.5200, L100.0100, L500.3400, L500.2500, L300.8000, L503.6620, L501.2450 #### [facility] [address] [place], [address] Neutrophils/100 WBC (Bld) 68.8 % Normal 47-70 [facility] Comment on above: Performed By: #### L 501.5200, L100.0100, L500.3400, L500.2500, L300.8000, L503.6620, L501.2450 #### [facility] [address] [place], [address] Nucleated RBC (Bld) [#/Vol] 0 10*3/uL Normal 0-5 [facility] Comment on above: Performed By: #### L 501.5200, L100.0100, L500.3400, L500.2500, L300.8000, L503.6620, L501.2450 #### [facility] [address] [place], [address] Platelet mean volume (Bld) [Entitic vol] 10.5 fL Normal 6.2-12.0 [facility] Comment on above: Performed By: #### L 501.5200, L100.0100, L500.3400, L500.2500, L300.8000, L503.6620, L501.2450 #### [facility] [address] [place], [address] Platelets (Bld) [#/Vol] 333 10*3/uL Normal 150-450 [facility] Comment on above: Performed By: #### L 501.5200, L100.0100, L500.3400, L500.2500, L300.8000, L503.6620, L501.2450 #### [facility] [address] [place], [address] RBC (Bld) [#/Vol] 4.74 10*6/uL Normal 4.2-5.4 [facility] Comment on above: Performed By: #### L 501.5200, L100.0100, L500.3400, L500.2500, L300.8000, L503.6620, L501.2450 #### [facility] [address] [place], [address] RDW SD 47.4 fl High 35.1-43.9 [facility] Comment on above: Performed By: #### L 501.5200, L100.0100, L500.3400, L500.2500, L300.8000, L503.6620, L501.2450 #### [facility] [address] [place], [address] WBC (Bld) [#/Vol] 12.8 10*3/uL High 4.4-11.0 [facility] Comment on above: Performed By: #### L 501.5200, L100.0100, L500.3400, L500.2500, L300.8000, L503.6620, L501.2450 #### [facility] [address] [place], [address] Chest PA and Lateralon 03-27 Chest PA and Lateral [facility] Imaging Services [address] [place] [address] Chest PA and Lateral MR#: [id number] Acct: [id number] Name: SANDRA SCHMITZ Rep #: [id number] : 1945 F 78 From: Lacy Virk PCP: Dr. Mandeep Houser DO Status: [facility] Study: Chest PA and Lateral Date of Exam: 03/27/24 Exam# [id number] Ordering Dr: Parker Nunez DO [id number] INDICATION: dyspnea EXAMINATION/TECHNIQUE: X-RAY - XR Chest 2 Views COMPARISON: No relevant prior comparison study available FINDINGS: LINES/DEVICES: Pacemaker device over left chest with 3 leads terminating over the heart. LUNGS: No consolidation. No pneumothorax. MEDIASTINUM: The aorta is atherosclerotic. CARDIAC SILHOUETTE: Not enlarged. BONES AND SOFT TISSUES: No acute abnormalities. RAD/Chest PA and Lateral IMPRESSION: No evidence of active intrathoracic disease. Electronically Signed: Lacy Pemberton MD at 2:43 EST , CC: Dr. 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 RESULTS READ BACK BY SAME. Performed By: #### L 501.5200, L100.0100, L500.3400, L500.2500, L300.8000, L503.6620, L501.2450 #### [facility] [address] [facility] [place], [address] Emergency Department Summary on 03-27-2024 Emergency Department Summary [facility] Medical Records Department [address] [place] [address] Emergency Department Summary 03/27/24 MR#: [id number] Acct: [id number] Name: SANDRA SCHMITZ Rep #: [id number] : 1945 78 From: Parker Nunez DO PCP: Dr. Mandeep Houser DO Status:DEP ER Location: ED HPI History of Present Illness Chief Complaint: Shortness of Breath Informant: patient and family Narrative Narrative: Patient is a 78-year-old female who lives at home with her daughter with past medical history of congestive heart failure hypertension hyperlipidemia and need for pacemaker placement. She states she went to bed as she normally does but then awoke with sensation of nausea and shaking chills. She states she did not have any bouts of emesis. She denies any chest pain associated with this. She states it did feel slightly difficult to catch her breath with her symptoms. She denies any known sick contacts but with the symptoms occurring spontaneously and her past medical history EMS was called to bring her in for evaluation [facility] Medical History (Updated 03/27/24 @ 06:[address] Parker Nunez, DO) Obesity Former tobacco use Hyperlipidemia HFrEF (heart failure with reduced ejection fraction) Presence of combination internal cardiac defibrillator (ICD) and pacemaker Hypertension Home Medications ???Medication ???Instructions ???Recorded ???Last Taken ???Type aspirin 81 mg tablet,delayed 81 mg PO DAILY 03/27/24 Unknown History release (Adult Aspirin Regimen) furosemide 20 mg tablet 20 mg PO DAILY 03/27/24 Unknown History losartan 25 mg tablet 25 mg PO DAILY 03/27/24 Unknown History metoprolol succinate 25 mg 25 mg PO QHS 03/27/24 Unknown History tablet,extended release 24 hr ondansetron 4 mg disintegrating 4 mg PO TID PRN nausea and 03/27/24 Unknown Rx tablet vomiting #21 tabs Allergy/AdvReac Type Severity Reaction Status Date / Time amoxicillin (From Augmentin) AdvReac PT UNSURE Verified 03/27/24 01:05 OF REACTION clavulanic acid (From AdvReac PT UNSURE Verified 03/27/24 01:05 Augmentin) OF REACTION Surgical History (Updated 03/27/24 @ 02:[address] Stefania Martin MD) S/P implantation of automatic cardioverter/defibrillato r (AICD) H/O: hysterectomy History of cholecystectomy Social History (Updated 03/27/24 @ 02:[address] Stefania Martin MD) household members: none Smoking Status: Former smoker how long ago did patient quit smoking: Quit 20 yrs prior, smoked 1 ppd x 30 yrs. alcohol intake: never substance use type: does not use ROS ROS ED Constitutional Constitutional ED: Reports chills and subjective; Denies fever(s) Eyes Eyes: Denies blurry vision or change in vision ENT ENT ED: Denies sore throat Cardiovascular Cardiovascular: Reports racing heartbeat; Denies chest pain or palpitations Respiratory/Chest Respiratory/Chest: Reports dyspnea; Denies cough Gastrointestinal Gastrointestinal: Reports abdominal pain and nausea; Denies constipation, diarrhea or vomiting Genitourinary Genitourinary ED: Denies dysuria or hematuria Musculoskeletal Musculoskeletal: Denies myalgias Integumentary Denies rash Neurologic Neurologic: Denies headache(s) Hematologic/Lymphatic Hematologic/Lymphatic: Denies easy bleeding or easy bruising EXAM Physical Exam Const Vital Signs: 03/27/24 01:04 03/27/24 01:04 03/27/24 01:42 Temperature 97.9 F Temperature Source Oral Pulse Rate 110 H Respiratory Rate 19 H Respiratory Effort Normal Non-Labored Respiratory Depth Normal Respiratory Pattern Normal Blood Pressure 159/115 H Blood Pressure Mean 129 Pulse Ox 92 90 Oxygen Delivery Method Room Air Room Air 03/27/24 01:45 03/27/24 01:52 03/27/24 02:00 Temperature Temperature Source Pulse Rate 119 H 102 H Respiratory Rate 15 15 Respiratory Effort Respiratory Depth Respiratory Pattern Blood Pressure 143/79 H 143/83 H Blood Pressure Mean 100 100 Pulse Ox 89 89 Oxygen Delivery Method 03/27/24 02:15 03/27/24 02:24 03/27/24 02:30 Temperature Temperature Source Pulse Rate 103 H 99 Respiratory Rate 18 16 Respiratory Effort Respiratory Depth Respiratory Pattern Blood Pressure 117/106 H 131/70 H Blood Pressure Mean 112 88 Pulse Ox 90 88 Oxygen Delivery Method 03/27/24 02:45 03/27/24 02:49 03/27/24 03:00 Temperature Temperature Source Pulse Rate 107 H 100 Respiratory Rate 20 H 18 Respiratory Effort Respiratory Depth Respiratory Pattern Blood Pressure 124/77 H 104/84 H Blood Pressure Mean 90 91 Pulse Ox 79 91 Oxygen Delivery Method 03/27/24 03:54 Temperature 97.9 F Temperature Source Pulse Rate 71 Respiratory Rate 18 Res (more content not included)... Normal [facility] Lipaseon 03-27-2024 Lipase [Catalytic activity/Vol] 51 U/L Normal 13-75 [facility] Comment on above: Result Comment: Alva wiggins note: LIPASE revised reference range effective 22. New Lipase methodology. Expected to produce lower values than the previous assay method. NEW Reference Range: 13 - 75 U/L Performed By: #### L 501.5200, L100.0100, L500.3400, L500.2500, L300.8000, L503.6620, L501.2450 #### [facility] [address] [place], [address] Liver Profileon 03-27-2024 Albumin [Mass/Vol] 3.7 g/dL Normal 3.2-5.0 [facility] Comment on above: Performed By: #### L 501.5200, L100.0100, L500.3400, L500.2500, L300.8000, L503.6620, L501.2450 #### [facility] [address] [place], [address] ALK P 78 U/L Normal 45-117 [facility] Comment on above: Performed By: #### L 501.5200, L100.0100, L500.3400, L500.2500, L300.8000, L503.6620, L501.2450 #### [facility] [address] [place], [address] ALT [Catalytic activity/Vol] 16 U/L Normal 13-56 [facility] Comment on above: Performed By: #### L 501.5200, L100.0100, L500.3400, L500.2500, L300.8000, L503.6620, L501.2450 #### [facility] [address] [place], [address] AST [Catalytic activity/Vol] 18 U/L Normal 15-37 [facility] Comment on above: Performed By: #### L 501.5200, L100.0100, L500.3400, L500.2500, L300.8000, L503.6620, L501.2450 #### [facility] [address] [place], [address] Bilirubin [Mass/Vol] 0.40 mg/dL Normal 0.20-1.00 [facility] Comment on above: Result Comment: For patients on eltrombopag therapy, use of Dimension [place] TBIL is not recommended. Performed By: #### L 501.5200, L100.0100, L500.3400, L500.2500, L300.8000, L503.6620, L501.2450 #### [facility] [address] [place], [address] Bilirubin.direct [Mass/Vol] 0.13 mg/dL Normal 0.00-0.30 [facility] Comment on above: Performed By: #### L 501.5200, L100.0100, L500.3400, L500.2500, L300.8000, L503.6620, L501.2450 #### [facility] [address] [place], [address] Globulin (S) [Mass/Vol] 4.5 g/dL High 2.2-4.2 [facility] Comment on above: Performed By: #### L 501.5200, L100.0100, L500.3400, L500.2500, L300.8000, L503.6620, L501.2450 #### [facility] [address] [place], [address] T PROT 8.2 g/dL Normal 6.4-8.2 [facility] Comment on above: Performed By: #### L 501.5200, L100.0100, L500.3400, L500.2500, L300.8000, L503.6620, L501.2450 #### [facility] [address] [place], [address] M100.678on 03-27-2024 M100.678 Pending SARS-CoV-2 (COVID 19) Negative INFLUENZA A Negative INFLUENZA B Negative RSV PCR Negative Normal [facility] Comment on above: Performed By: #### M 100.678 ####[facility] [address] [place], [address] Magnesiumon 03-27-2024 Magnesium [Mass/Vol] 2.1 mg/dL Normal 1.6-2.6 [facility] Comment on above: Performed By: #### L 501.5200, L100.0100, L500.3400, L500.2500, L300.8000, L503.6620, L501.2450 #### [facility] [address] [place], [address] Urinalysis, Completeon 03-27 EPI,SQUAMOUS 0-5 SEEN Normal 5-10 [facility] Comment on above: Order Comment: CLEAN CATCH Performed By: #### L 400.0001 ####[facility] [address] [place], [address] BACTERIA 0 SEEN Normal None Seen [facility] Comment on above: Order Comment: CLEAN CATCH Performed By: #### L 400.0001 ####[facility] [address] [place], [address] Mucus Ql (Urine sed) 0 SEEN Normal [facility] Comment on above: Order Comment: CLEAN CATCH Performed By: #### L 400.0001 ####[facility] [address] [place], [address] RBC 0 SEEN Normal 0-5 [facility] Comment on above: Order Comment: CLEAN CATCH Performed By: #### L 400.0001 ####[facility] [address] [place], [address] WBC 0 SEEN Normal 0-5 [facility] Comment on above: Order Comment: CLEAN CATCH Performed By: #### L 400.0001 ####[facility] [address] [place], [address] [facility] ----- SANDRA SCHMITZ ([id number]) 1945 [address] [employer] Date Time Provider Department 03/21/24 MANDEEP HOUSER During your visit today, we recorded the following information about you: Sanjeev Carpio RN 03/21/2024 11:17 AM Signed Patient reports she saw pcp on 03-18-24 for OMT. Reports pcp was going to call in AB to [facility], for her scratchy throat, sinus drainage, pt could take if the s/s continue. Reports [facility] never recv'd the Rx. Asking if pcp can send the Rx? Mandeep Houser DO 03/21/2024 5:06 PM Signed The following approved medication requests have been transmitted electronically. Requested Prescriptions Signed Prescriptions Disp Refills doxycycline (VIBRA-TABS) 100 mg tablet 20 tablet 0 Sig: Take 1 tablet by mouth two times a day for 10 days. Authorizing Provider: MANDEEP HOUSER DO Rowland, Kathryn, MA 03/24/2024 9:52 AM Signed Pt notified. Phyllis Levin MA Allergies As of Date: 03/21/2024 Noted Allergy Reaction EMILIO INHIBITORS 05/03/2020 5 - Intolerance Comments: Short of breath, symptoms of heart failure BETA-BLOCKERS (BETA-ADRENERGIC BL*05/03/2020 5 - Intolerance Comments: Short of breath, symptoms of heart failure AUGMENTIN (AMOXICILLIN-POT CLAVUL*01/23/2013 8 - GI Upset CODEINE 10/24/2012 1 - Mental Status Change Comments: Patient felt like she was made out of lead ENTRESTO (SACUBITRIL-VALSARTAN) 02/07/2024 5 - Intolerance LIPITOR (ATORVASTATIN) 05/05/2020 17 - Myalgia Comments: Muscle aches SULFA (SULFONAMIDE ANTIBIOTICS) 04/28/2020 5 - Intolerance AMLODIPINE 04/28/2020 5 - Intolerance Comments: lightheaded Date Reviewed: 02/07/2024 Reviewed by: Yessica Quintero MA - Fully Assessed Reason for Visit: Medication Problem [65] Order(s):doxycycline (VIBRA-TABS) 100 mg tabletTake 1 tablet by mouth two times a day for 10 days.Disp: 20 tabletRfl: 0 Prescriptions as of 03/24/2024 - doxycycline (VIBRA-TABS) 100 mg tablet Take 1 tablet by mouth two times a day for 10 days. - losartan (COZAAR) 25 mg tablet Take 1 tablet by mouth once daily. - aluminum-magnesium hydroxide-simethicone 200-200-20 mg/5 mL suspension Take 30 mL by mouth every 6 hours as needed. - dicyclomine (BENTYL) 10 mg capsule Take 1 capsule by mouth three times a day as needed (abdominal pain) for up to 20 doses. - levothyroxine (LEVOXYL) 100 mcg tablet Take 1 tablet by mouth daily before breakfast. - furosemide (LASIX) 20 mg tablet Take 1 tablet by mouth once daily. - metoprolol succinate ER (TOPROL XL) 25 mg 24 hr tablet Take 1 tablet by mouth daily at bedtime. - acetaminophen (TYLENOL) 500 mg tablet Take 2 tablets by mouth every 8 hours as needed for pain. - cyanocobalamin (VITAMIN B-12) 1,000 mcg tab Take 1 tablet by mouth once daily. - Cholecalciferol, Vitamin D3, 50 mcg (2,000 unit) cap Take 2 capsules by mouth once daily. - aspirin, enteric coated (ECOTRIN LOW STRENGTH) 81 mg EC tablet Take 1 tablet by mouth once daily. Problem List As Of Date 03/21/2024 Noted Resolved IBS (irritable bowel syndrome) [K58.9] 01/23/2013 Palpitations [R00.2] 12/16/2014 Obesity, Class I, BMI 30-34.9 [E66.811] 03/10/2020 Shortness of breath [R06.02] 05/03/2020 06/14/2020 Acute on chronic systolic CHF (congestive heart*05/03/2020 Homozygous Factor V Leiden mutation (HCC) [D68.*05/03/2020 Hypothyroidism [E03.9] 01/24/2018 Chest pain [R07.9] 05/03/2020 06/14/2020 Post-operative state [Z98.890] 05/24/2020 06/14/2020 Rectocele [N81.6] 05/25/2020 Cystocele, midline [N81.11] 05/25/2020 Aspiration pneumonia (HCC) [J69.0] 05/30/2020 09/22/2020 Acute acalculous cholecystitis [K81.0] 05/30/2020 Primary hypertension [I10] 06/14/2020 Acute idiopathic gout involving toe of left cristal*09/22/2020 Diverticulitis [K57.92] 09/29/2020 Hypokalemia [E87.6] 09/29/2020 Hospital discharge follow-up [Z09] 12/06/2020 Tubular adenoma of colon [D12.6] 12/09/2020 Mixed hyperlipidemia [E78.2] 12/29/2020 Chronic pain of right ankle [M25.571, G89.29] 12/29/2020 Kidney insufficiency [N28.9] 12/29/2020 Chronic systolic congestive heart failure (HCC)*02/14/2021 Valvular heart disease [I38] 04/06/2021 Colon cancer screening [Z12.11] 04/06/2021 Left bundle branch block [I44.7] 05/23/2021 Left shoulder pain [M25.512] 07/11/2021 Lateral epicondylitis of left elbow [M77.12] 07/11/2021 Cardiomegaly [I51.7] 02/13/2022 Chronic bilateral thoracic back pain [M54.6, G8*07/18/2022 Rib pain on right side [R07.81] 07/18/2022 Somatic dysfunction of rib [M99.08] 07/18/2022 Somatic dysfunction of spine, thoracic [M99.02] 07/18/2022 Somatic dysfunction of spine, cervical [M99.01] 07/18/2022 Foot drop, right [M21.371] 08/02/2022 Arthrosis of ankle, right [M19.071] 08/02/2022 Coronary artery disease involving [place] lopez*08/02/2022 Vitamin D deficiency [E55.9] (more content not included)... Normal [facility]na 03-05-2024 [facility] Telephone ([facility]) ----- SANDRA SCHMITZ ([id number]) 1945 [address] [place]* Date Time Provider Department 03/05/24 MANDEEP HOUSERWS During your visit today, we recorded the following information about you: Mandeep Houser DO 03/05/2024 10:33 PM Signed Please call patient and let her know that her recent thyroid labs are all stable DO Kevin Gamez Linda M, LUDY 03/06/2024 10:21 AM Signed Left message to return call. Sanjeev Carpio RN 03/06/2024 2:23 PM Signed Pt returned call and given provider's message below with verbalized understanding. Allergies As of Date: 03/05/2024 Noted Allergy Reaction EMILIO INHIBITORS 05/03/2020 5 - Intolerance Comments: Short of breath, symptoms of heart failure BETA-BLOCKERS (BETA-ADRENERGIC BL*05/03/2020 5 - Intolerance Comments: Short of breath, symptoms of heart failure AUGMENTIN (AMOXICILLIN-POT CLAVUL*01/23/2013 8 - GI Upset CODEINE 10/24/2012 1 - Mental Status Change Comments: Patient felt like she was made out of lead ENTRESTO (SACUBITRIL-VALSARTAN) 02/07/2024 5 - Intolerance LIPITOR (ATORVASTATIN) 05/05/2020 17 - Myalgia Comments: Muscle aches SULFA (SULFONAMIDE ANTIBIOTICS) 04/28/2020 5 - Intolerance AMLODIPINE 04/28/2020 5 - Intolerance Comments: lightheaded Date Reviewed: 02/07/2024 Reviewed by: Yessica Quintero MA - Fully Assessed Prescriptions as of 03/06/2024 - losartan (COZAAR) 25 mg tablet Take 1 tablet by mouth once daily. - aluminum-magnesium hydroxide-simethicone 200-200-20 mg/5 mL suspension Take 30 mL by mouth every 6 hours as needed. - dicyclomine (BENTYL) 10 mg capsule Take 1 capsule by mouth three times a day as needed (abdominal pain) for up to 20 doses. - levothyroxine (LEVOXYL) 100 mcg tablet Take 1 tablet by mouth daily before breakfast. - furosemide (LASIX) 20 mg tablet Take 1 tablet by mouth once daily. - metoprolol succinate ER (TOPROL XL) 25 mg 24 hr tablet Take 1 tablet by mouth daily at bedtime. - acetaminophen (TYLENOL) 500 mg tablet Take 2 tablets by mouth every 8 hours as needed for pain. - cyanocobalamin (VITAMIN B-12) 1,000 mcg tab Take 1 tablet by mouth once daily. - Cholecalciferol, Vitamin D3, 50 mcg (2,000 unit) cap Take 2 capsules by mouth once daily. - aspirin, enteric coated (ECOTRIN LOW STRENGTH) 81 mg EC tablet Take 1 tablet by mouth once daily. Problem List As Of Date 03/05/2024 Noted Resolved IBS (irritable bowel syndrome) [K58.9] 01/23/2013 Palpitations [R00.2] 12/16/2014 Obesity, Class I, BMI 30-34.9 [E66.811] 03/10/2020 Shortness of breath [R06.02] 05/03/2020 06/14/2020 Acute on chronic systolic CHF (congestive heart*05/03/2020 Homozygous Factor V Leiden mutation (HCC) [D68.*05/03/2020 Hypothyroidism [E03.9] 01/24/2018 Chest pain [R07.9] 05/03/2020 06/14/2020 Post-operative state [Z98.890] 05/24/2020 06/14/2020 Rectocele [N81.6] 05/25/2020 Cystocele, midline [N81.11] 05/25/2020 Aspiration pneumonia (HCC) [J69.0] 05/30/2020 09/22/2020 Acute acalculous cholecystitis [K81.0] 05/30/2020 Primary hypertension [I10] 06/14/2020 Acute idiopathic gout involving toe of left cristal*09/22/2020 Diverticulitis [K57.92] 09/29/2020 Hypokalemia [E87.6] 09/29/2020 Hospital discharge follow-up [Z09] 12/06/2020 Tubular adenoma of colon [D12.6] 12/09/2020 Mixed hyperlipidemia [E78.2] 12/29/2020 Chronic pain of right ankle [M25.571, G89.29] 12/29/2020 Kidney insufficiency [N28.9] 12/29/2020 Chronic systolic congestive heart failure (HCC)*02/14/2021 Valvular heart disease [I38] 04/06/2021 Colon cancer screening [Z12.11] 04/06/2021 Left bundle branch block [I44.7] 05/23/2021 Left shoulder pain [M25.512] 07/11/2021 Lateral epicondylitis of left elbow [M77.12] 07/11/2021 Cardiomegaly [I51.7] 02/13/2022 Chronic bilateral thoracic back pain [M54.6, G8*07/18/2022 Rib pain on right side [R07.81] 07/18/2022 Somatic dysfunction of rib [M99.08] 07/18/2022 Somatic dysfunction of spine, thoracic [M99.02] 07/18/2022 Somatic dysfunction of spine, cervical [M99.01] 07/18/2022 Foot drop, right [M21.371] 08/02/2022 Arthrosis of ankle, right [M19.071] 08/02/2022 Coronary artery disease involving [place] lopez*08/02/2022 Vitamin D deficiency [E55.9] 08/02/2022 Somatic dysfunction of head region [M99.00] 08/10/2022 Chronic neck pain [M54.2, G89.29] 08/24/2022 Chronic bronchitis (HCC) [J42] 09/11/2022 SVT (supraventricular tachycardia) (HCC) [I47.1*09/11/2022 Combined systolic and diastolic cardiac dysfunc*09/11/2022 Hypothyroidism, acquired [E03.9] 04/17/2023 Acute decompensated heart failure (HCC) [I50.9] 07/10/2023 Nonischemic cardiomyopathy (HCC) [I42.8] 07/10/2023 Acute on chronic combined systolic and diastoli*07/11/2023 Bradycardia [R00.1] 07/13/2023 Acute hypoxic respiratory failure (HCC) [J96.01]07/13/2023 Atrial fibrillation (HCC) [I48.91] 07/13/2023 LBBB (left bundle (more content not included)... [facility] CNOVon 02-12-2024 CNOV Office Visit (FAMPWS ) ----- SANDRA SCHMITZ ([id number]) 1945 [place]* Date Time Provider Department 02/12/24 2:00 PM [facility] During your visit today, we recorded the following information about you: Mandeep Houser DO 02/12/2024 4:00 PM Signed CC: Sandra Schmitz is a 78 year old female who presents to the office for OMT HPI: Acute on chronic back pain, started yesterday with significant mid to lower back pain. Has been up doing a lot around her home. Otherwise doesn't know what started or triggered her symptoms, no new bowel or bladder changes. Pain is worse when moving from sitting to standing or with standing or walking. No trauma that she is aware of. Pain is severe, has been taking tylenol and using ice and heating pad without relief of symptoms. She is not able to take NSAIDs. Has been doing a lot of new exercise with cardiac rehab which has been held since her back pain flare up. Had improvements after her OMT PAST MEDICAL HISTORY Diagnosis Date Acute acalculous cholecystitis 05/30/2020 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 09/22/2020 Acute on chronic systolic CHF (congestive heart failure) ([facility]) 05/03/2020 Aspiration pneumonia ([facility]) 05/30/2020 Chest pain 05/03/2020 Chest pressure 01/23/2013 Chronic diastolic congestive heart failure ([facility]) 02/14/2021 Clostridium difficile diarrhea 09/28/2020 Complete uterovaginal prolapse Cystocele, midline Essential hypertension 06/14/2020 Homozygous Factor V Leiden mutation ([facility]) 05/03/2020 Hypothyroidism IBS (irritable bowel syndrome) 01/23/2013 Palpitation CHRONIC Post-operative state 05/24/2020 Rectocele 05/25/2020 Shortness of breath 05/03/2020 Status post laparoscopic hysterectomy 05/30/2020 Tubular adenoma of colon 12/09/2020 Uterine prolapse 05/03/2020 PAST SURGICAL HISTORY Procedure Laterality Date COLONOSCOPY 01/07/2015 COLONOSCOPY 12/05/2021 repeat in 5 years COLONOSCOPY GEN ANES 12/06/2009 X3 LAST ONE IN 2009 EGD 11/08/2012 EGD 12/05/2021 INSERT/REPL DEFIB LEAD/GENER OTHR 07/2023 w/ Pacemaker PAST SURGICAL HISTORY OF 05/14/1999 left foot bunionectomy w/screws PAST SURGICAL HISTORY OF 05/14/1981 ectopic w/tube removal PAST SURGICAL HISTORY OF 2009 CYST REMOVED FROM UTERUS PAST SURGICAL HISTORY OF 05/24/2020 TVH, partial colpectomy, anterior colporrhaphy, Dennis transobturator midurethral sling, cystourethroscopy, rectocele repair with perineorrhaphy, laparoscopic lysis of adhesions and excision of bilateral adnexal structures PAST SURGICAL HISTORY OF 09/07/2020 Laparoscopic cholecystectomy with intraoperative cholangiograms. Dr. Ragsdale Current Outpatient Medications Medication Sig losartan (COZAAR) 25 mg tablet Take 1 tablet by mouth once daily. aluminum-magnesium hydroxide-simethicone 200-200-20 mg/5 mL suspension Take 30 mL by mouth every 6 hours as needed. dicyclomine (BENTYL) 10 mg capsule Take 1 capsule by mouth three times a day as needed (abdominal pain) for up to 20 doses. levothyroxine (LEVOXYL) 100 mcg tablet Take 1 tablet by mouth daily before breakfast. furosemide (LASIX) 20 mg tablet Take 1 tablet by mouth once daily. metoprolol succinate ER (TOPROL XL) 25 mg 24 hr tablet Take 1 tablet by mouth daily at bedtime. acetaminophen (TYLENOL) 500 mg tablet Take 2 tablets by mouth every 8 hours as needed for pain. cyanocobalamin (VITAMIN B-12) 1,000 mcg tab Take 1 tablet by mouth once daily. Cholecalciferol, Vitamin D3, 50 mcg (2,000 unit) cap Take 2 capsules by mouth once daily. aspirin, enteric coated (ECOTRIN LOW STRENGTH) 81 mg EC tablet Take 1 tablet by mouth once daily. No current facility-administered medications for this visit. ALLERGIES Allergen Reactions Emilio Inhibitors Intolerance Short of breath, symptoms of heart failure Beta-Blockers (Beta* Intolerance Short of breath, symptoms of heart failure Augmentin [Amoxicil* GI Upset Codeine Mental Status Change Patient felt like she was made out of lead Entresto [Sacubitri* Intolerance Lipitor [Atorvastat* Myalgia Muscle aches Sulfa (Sulfonamide * Intolerance Amlodipine Intolerance lightheaded Social History Tobacco Use Smoking status: Former Current packs/day: 0.00 Types: Cigarettes Quit date: 10/22/2002 Years since quittin.3 Smokeless tobacco: Never Vaping Use Vaping status: Never Used Substance Use Topics Alcohol use: No Drug use: No ROS: See HPI PE: There were no vitals taken for this visit. Gen: AANDOX3, she appears uncomfortable HEENT: PERRLA, EOMs intact b/l, nares without drainage, pharynx without erythema, exudate, lesions, or drainage. Uvula midline. Neck: supple, No cervical LAD, no thyromegaly, no carotid bruits, suboccipital fullness right head, C3-5NRrSBr Left 5th rib inhalation dysfunction posterior T3-10ERrSBl L1-2NRrS (more content not included)... [facility] T3Free SerPl-mCncon 02-12-20 24 Free T3 [Mass/Vol] 2.1 pg/mL Low 2.3-4.1 [facility] Comment on above: Order Comment: Speci men Type: BLOOD SPECIMENOrdering Facility: [facility] Address: [address] [place] [address] Performed By: #### 3 051-0, 3024-7, 3016-3 ####[facility] LABCLIA [id number] [facility] [id number] [address] [place] T4 Free SerPl-mCncon 024 Free T4 [Mass/Vol] 1.6 ng/dL Normal 0.9-1.7 [facility] Comment on above: Order Comment: Speci men Type: BLOOD SPECIMENOrdering Facility: [facility] Address: [address] [place] [address] Performed By: #### 3 051-0, 3024-7, 6-3 ####[facility] LABCLIA [id number] [place] [id number] [place] TSH SerPl-aCncon 02-12-2024 TSH Qn 0.695 m[IU]/L Normal 0.270-4.200 [facility] Comment on above: Order Comment: Speci men Type: BLOOD SPECIMENOrdering Facility: [facility] Address: [address] [place] [address] Performed By: #### 3 051-0, 3024-7, 6-3 ####[facility] LABCLIA [id number] [address] [place] CNOVon 02-07-2024 CNOV Office Visit (CARDMM ) ----- SANDRA SCHMITZ ([id number]) 1945 [place]* Date Time Provider Department 02/07/24 2:20 PM ANGEL CASTRO During your visit today, we recorded the following information about you: Pulse Blood pressure Weight 83/minute 132/78 89.2 kg Angel Castro DO 02/07/2024 2:40 PM Signed Heart [facility] Vascular [facility] Department of Cardiovascular Medicine SECTION OF REGIONAL CARDIOLOGY/[facility] OUTPATIENT VISIT DATE February 07, 2024 OUTPATIENT VISIT TYPE ESTABLISHED PATIENT Name: Sandra Ricardo Nadir : 1945 Date: February 07, 2024 PRIMARY CARE PHYSICIAN: Mandeep Houser [address] [place] [address] REFERRING PHYSICIAN: No referring provider defined for this encounter. CHIEF COMPLAINT: Patient presents with: CARD Follow Up 3 Month: PMH: non-ischemic CM, HTN, Hypothyroidism, LBBB s/p CUT PLUG PACKER-D IMPRESSION / PLAN: Severe nonischemic cardiomyopathy status post CUT PLUG PACKER-D in July 2023. - [facility] 10/2021: mod LAD, D1 prox 40%, mild RCA disease - GDMT: Unable to tolerate Jardiance and Entresto, continue losartan 40 mg daily and metoprolol ER 25 mg daily and unable to tolerate higher doses. We discussed carvedilol versus metoprolol and will continue metoprolol for now. Lasix 20 mg daily and discussed increasing doses if she has any significant weight gain or shortness of breath or increasing abdominal girth. - s/p CUT PLUG PACKER-D 07/16/23 at [facility] - Follows with advanced heart failure, - Follows with EP, Dr. Wellington and continue follow-up in the device clinic Left bundle branch block - s/p CUT PLUG PACKER-D 07/16/23 at [facility] - Follows with EP, Dr. Wellington Nonobstructive coronary artery disease - [facility] 10/2021: mod LAD, D1 prox 40%, mild RCA disease - Pharm MPI stress 07/11/23: No inducible ischemia or scar - Patient appears compensated from cardiac standpoint - Continue ASA and BB as currently ordered - FLP - Pravastatin vs PCSK9i vs bempedoic acid Valvular heart disease - Echo 06/2023: - Moderate (1-2+) MR - Mild (1+) TR - Mild (1+) AI - Emphasis on afterload reduction - Annual echocardiogram monitoring Mixed hyperlipidemia - Currently on no lipid-lowering agents - Myalgias with Atorvastatin and Rosuvastatin - Chest pressure with Zetia - Last lipid panel 07/2022 with LDL 137 - Normal LFTs 07/2023 Follow Up Instructions Return in about 6 months (around 08/06/2024) for Echo before next visit. ORDERS FOR TODAY'S VISIT: Office Visit on 02/07/24 ECHO HISTORY OF PRESENT ILLNESS: Sandra Schmitz is an 78 year old female with a past history of severe nonischemic cardiomyopathy with an ejection fraction of 23% status post CUT PLUG PACKER-D in July 2023, hypertension and factor V Leiden mutation along with hypothyroidism who presents today for follow-up. She has been doing well overall with some good days and bad days but continues to perform many of her activities although with some limitations of shortness of breath. Denies any syncope or near syncope or ICD shocks. PAST MEDICAL HISTORY Diagnosis Date Acute acalculous cholecystitis 05/30/2020 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 09/22/2020 Acute on chronic systolic CHF (congestive heart failure) ([facility]) 05/03/2020 Aspiration pneumonia ([facility]) 05/30/2020 Chest pain 05/03/2020 Chest pressure 01/23/2013 Chronic diastolic congestive heart failure (HCC) 02/14/2021 Clostridium difficile diarrhea 09/28/2020 Complete uterovaginal prolapse Cystocele, midline Essential hypertension 06/14/2020 Homozygous Factor V Leiden mutation (HCC) 05/03/2020 Hypothyroidism IBS (irritable bowel syndrome) 01/23/2013 Palpitation CHRONIC Post-operative state 05/24/2020 Rectocele 05/25/2020 Shortness of breath 05/03/2020 Status post laparoscopic hysterectomy 05/30/2020 Tubular adenoma of colon 12/09/2020 Uterine prolapse 05/03/2020 PAST SURGICAL HISTORY Procedure Laterality Date COLONOSCOPY 01/07/2015 COLONOSCOPY 12/05/2021 repeat in 5 years COLONOSCOPY GEN ANES 12/06/2009 X3 LAST ONE IN 2009 EGD 11/08/2012 EGD 12/05/2021 INSERT/REPL DEFIB LEAD/GENER OTHR 07/2023 w/ Pacemaker PAST SURGICAL HISTORY OF 05/14/1999 left foot bunionectomy w/screws PAST SURGICAL HISTORY OF 05/14/1981 ectopic w/tube removal PAST SURGICAL HISTORY OF 2009 CYST REMOVED FROM UTERUS PAST SURGICAL HISTORY OF 05/24/2020 TVH, partial colpectomy, anterior colporrhaphy, Dennis transobturator midurethral sling, cystourethroscopy, rectocele repair with perineorrhaphy, laparoscopic lysis of adhesions and excision of bilateral adnexal structures PAST SURGICAL HISTORY OF 09/07/2020 Laparoscopic cholecystectomy with intraoperative cholangiograms. Dr. Ragsdale SOCIAL HISTORY Social History Tobacco Use Smoking status: Former (more content not included)... [facility] ECG COMPLETEon 02-04-2024 Atrial Rate 70 BPM [facility] Calculated P [place] 21 degrees [facility] Calculated R [place] -61 degrees [facility] Calculated T [place] 63 degrees [facility] P-R Interval 132 ms [facility] QRS Duration 116 ms [facility] QT Interval 462 ms [facility] QTC Calculation (Bazett) 498 ms [facility] Ventricular Rate 70 BPM [facility] NORMAL SINUS RHYTHM LEFT AXIS DEVIATION INFERIOR MYOCARDIAL INFARCTION , AGE UNDETERMINED ANTEROLATERAL INFARCTION , AGE UNDETERMINED ABNORMAL ECG Confirmed by AUGUSTINE WAN MD ([id number]) on 02/04/2024 10:18:22 AM [facility] NAME : SANDRA SCHMITZ PID : [id number] : 1945 Gender : Female Race : ORD : Procedure Date : Jan 15 2024 12:59:19 Edit Date : Feb 04 2024 10:18:28 Diagnosis: NORMAL SINUS RHYTHM LEFT AXIS DEVIATION INFERIOR MYOCARDIAL INFARCTION , AGE UNDETERMINED ANTEROLATERAL INFARCTION , AGE UNDETERMINED ABNORMAL ECG Confirmed by AUGUSTINE WAN MD ([id number]) on 02/04/2024 10:18:22 AM Test Reason : Location : 225 : FVCARD Overread By : AUGUSTINE WAN MD Edited By : AUGUSTINE WAN MD Referred By : PILI WELLS Acquired by : , HEART AND VASCULAR [facility] NT PRO BNPon 01-30-2024 Natriuretic peptide.B prohormone N-Terminal [Mass/Vol] 2145 pg/mL High NINF - 450 pg/mL [facility] Natriuretic peptide.B prohor briana N-Terminal [Mass/Vol]on 01-30-2024 Interpretation and review of laboratory results Abnormal [facility] CNOVon 01-29-2024 CNOV Office Visit (FAMPWS ) ----- SANDRA SCHMITZ ([id number]) 1945 [place]* Date Time Provider Department 01/29/24 11:40 AM MANDEEP HOUSER FAMPWS During your visit today, we recorded the following information about you: Mandeep Houser, 01/29/2024 1:04 PM Signed CC: Sandra Schmitz is a 78 year old female who presents to the office for OMT HPI: Acute on chronic back pain, started yesterday with significant mid to lower back pain. Has been up doing a lot around her home. Otherwise doesn't know what started or triggered her symptoms, no new bowel or bladder changes. Pain is worse when moving from sitting to standing or with standing or walking. No trauma that she is aware of. Pain is severe, has been taking tylenol and using ice and heating pad without relief of symptoms. She is not able to take NSAIDs. Has been doing a lot of new exercise with cardiac rehab which has been held since her back pain flare up. Had improvements after her OMT PAST MEDICAL HISTORY Diagnosis Date Acute acalculous cholecystitis 05/30/2020 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 09/22/2020 Acute on chronic systolic CHF (congestive heart failure) ([facility]) 05/03/2020 Aspiration pneumonia ([facility]) 05/30/2020 Chest pain 05/03/2020 Chest pressure 01/23/2013 Chronic diastolic congestive heart failure ([facility]) 02/14/2021 Clostridium difficile diarrhea 09/28/2020 Complete uterovaginal prolapse Cystocele, midline Essential hypertension 06/14/2020 Homozygous Factor V Leiden mutation ([facility]) 05/03/2020 Hypothyroidism IBS (irritable bowel syndrome) 01/23/2013 Palpitation CHRONIC Post-operative state 05/24/2020 Rectocele 05/25/2020 Shortness of breath 05/03/2020 Status post laparoscopic hysterectomy 05/30/2020 Tubular adenoma of colon 12/09/2020 Uterine prolapse 05/03/2020 PAST SURGICAL HISTORY Procedure Laterality Date COLONOSCOPY 01/07/2015 COLONOSCOPY 12/05/2021 repeat in 5 years COLONOSCOPY GEN ANES 12/06/2009 X3 LAST ONE IN 2009 EGD 11/08/2012 EGD 12/05/2021 PAST SURGICAL HISTORY OF 05/14/1999 left foot bunionectomy w/screws PAST SURGICAL HISTORY OF 05/14/1981 ectopic w/tube removal PAST SURGICAL HISTORY OF 2009 CYST REMOVED FROM UTERUS PAST SURGICAL HISTORY OF 05/24/2020 TVH, partial colpectomy, anterior colporrhaphy, Dennis transobturator midurethral sling, cystourethroscopy, rectocele repair with perineorrhaphy, laparoscopic lysis of adhesions and excision of bilateral adnexal structures PAST SURGICAL HISTORY OF 09/07/2020 Laparoscopic cholecystectomy with intraoperative cholangiograms. Dr. Ragsdale Current Outpatient Medications Medication Sig aluminum-magnesium hydroxide-simethicone 200-200-20 mg/5 mL suspension Take 30 mL by mouth every 6 hours as needed. (Patient not taking: Reported on 01/15/2024) dicyclomine (BENTYL) 10 mg capsule Take 1 capsule by mouth three times a day as needed (abdominal pain) for up to 20 doses. levothyroxine (LEVOXYL) 100 mcg tablet Take 1 tablet by mouth daily before breakfast. losartan (COZAAR) 25 mg tablet Take 1 tablet by mouth once daily. furosemide (LASIX) 20 mg tablet Take 1 tablet by mouth once daily. metoprolol succinate ER (TOPROL XL) 25 mg 24 hr tablet Take 1 tablet by mouth daily at bedtime. acetaminophen (TYLENOL) 500 mg tablet Take 2 tablets by mouth every 8 hours as needed for pain. cyanocobalamin (VITAMIN B-12) 1,000 mcg tab Take 1 tablet by mouth once daily. Cholecalciferol, Vitamin D3, 50 mcg (2,000 unit) cap Take 2 capsules by mouth once daily. aspirin, enteric coated (ECOTRIN LOW STRENGTH) 81 mg EC tablet Take 1 tablet by mouth once daily. No current facility-administered medications for this visit. ALLERGIES Allergen Reactions Emilio Inhibitors Intolerance Short of breath, symptoms of heart failure Beta-Blockers (Beta* Intolerance Short of breath, symptoms of heart failure Augmentin [Amoxicil* GI Upset Codeine Mental Status Change Patient felt like she was made out of lead Lipitor [Atorvastat* Myalgia Muscle aches Sulfa (Sulfonamide * Intolerance Amlodipine Intolerance lightheaded Social History Tobacco Use Smoking status: Former Current packs/day: 0.00 Types: Cigarettes Quit date: 10/22/2002 Years since quittin.2 Smokeless tobacco: Never Vaping Use Vaping status: Never Used Substance Use Topics Alcohol use: No Drug use: No ROS: See HPI PE: There were no vitals taken for this visit. Gen: AANDOX3, NAD HEENT: PERRLA, EOMs intact b/l, nares without drainage, pharynx without erythema, exudate, lesions, or drainage. Uvula midline. Neck: supple, No cervical LAD, no thyromegaly, no carotid bruits, suboccipital fullness right head, C3-6NRrSBr Right 1st rib inhalation dysfunction T3-9ERrSBl L1-2NRrSBr Left anterior pelvis MS: arthritis changes, antalgic gait No edema. No (more content not included)... [facility] NT-proBNP Becky-Daniel 01-28 Natriuretic peptide.B prohormone N-Terminal [Mass/Vol] 2145 pg/mL High <450 [facility] Comment on above: Order Comment: Speci men Type: BLOOD SPECIMENOrdering Facility: [facility] Address: [address] [place] [address] Performed By: #### 3 3762-6 ####[facility] LABCLIA [id number] [address] CNOVon 01-15-2024 CNOV Office Visit (CACHFV ) ----- SANDRA SCHMITZ ([id number]) 1945 [place]* Date Time Provider Department 01/15/24 1:00 PM PILI WELLS CACHFV During your visit today, we recorded the following information about you: Pulse Blood pressure Weight 65/minute 104/67 88.2 kg Pili Wells MD 01/15/2024 1:51 PM Signed Thank you for your visit. It was great to see you today! PLEASE READ ALL THE INSTRUCTIONS Medication changes: none Blood tests: added on for today Referral to other specialties: Additional Testing: none Follow up Visit: 9 months Other instructions: Engage in 30 minutes of continuous exercise at least 4 days per week if you can tolerate Please take your blood pressures, heart rate, and weight daily. Please notify us via [employer] if your Systolic BP (top number) < 90 or > 150 consistently. Please record these values and bring them during your next clinic visit so we can adjust your medications appropriately. If blood work or testing is done at an outside facility please send us a message to clarify if we have received the labs. If you have not heard from us regarding lab work or follow up testing please send us a message to ensure that we have received the tests. If you notice a 3 lbs weight gain within 3 days, please call our office for further instructions. Limit the amount of salt intake to less than 2 grams (or 2000 mg) and fluid intake to less than 2 liters (~60 ounces) a day. Please notify if you have any change in medical conditions/new diagnosis/hospitalization s. Your medications may interact with new medication or new diagnosis. Please notify your providers to check/monitor for interractions Avoid NSAIDS- Ibuprofen, aleve, motrin inview of heart kidney injury risk Please send a [employer] message or call with any questions or concerns: Outpatient Number: [phone] Thank you, Pili Wells MD [facility] [employer] [place] [phone] Pili Wells MD 03/07/2024 7:04 PM Signed Heart [facility] Vascular [facility] SECTION OF HEART FAILURE and CARDIAC TRANSPLANT MEDICINE [facility] OUTPATIENT VISIT DATE January 15, 2024 OUTPATIENT VISIT TYPE Established PRIMARY CARE PHYSICIAN: Mandeep Houser [address] [place] [phone] CHIEF COMPLAINT: Follow Up HISTORY OF PRESENT ILLNESS: Sandra Schmitz is a 78 year old female with a medical history that includes non-ischemic CM, HTN, Hypothyroidism, LBBB s/p CUT PLUG PACKER-D who is referred to me for heart failure management. Sandra Schmitz was initially diagnosed with non-ischemic CM ~ 4 yrs ago and was doing well on losartan and metoprolol. She had progressive sxs of dyspnea on exertion, therefore she was started on entresto and farxiga and her sxs persisted and she was admitted locally in [place] and then transferred to for CUT PLUG PACKER consideration. Interval History: Sandra Schmitz was last seen in this clinic on 10/02/23 via video visit. Since the last visit Sandra Schmitz, was admitted to the hospital with pre-syncope in the setting of abd spasms and have a bowel movement and also had an MAYCOL. She was seen by GI. On follow up today, she reports having ongoing abdominal issues, and intermittent chest discomfort near pacer, no edema, no orthopnea, no PND, no lightheadedness/dizziness since admission. Reports ongoing back pain and rib issues and scoliosis. Weight on home scale: 188-190 lbs. Weight stable here. Activity/Exercise: continuing to stay active doing things. Home BP: not regularly. CV Problem List/Medical History: Non- Ischemic Cardiomyopathy/Heart Failure with reduced ejection fraction: Echo 06/2023: LVEF 26%, LVEDd 5.8cm, RV wnl Echo 09/2022: LVEF 30%, LVEDd 4.6cm, RV wnl Echo 02/2022: LVEF 30%, RV wnl Echo 04/2020: LVEF 40%, LVEdd 4.8cm. LBBB: chronic. S/p CUT PLUG PACKER 07/2023 Non-obstructive CAD: stable, ischemic testing recently with no ischemia or infarction. 06/2023 Nuc SPECT: no ischemia or infarction. 10/2021 Cath: mod LAD, D1 prox 40%, mild RCA disease dominant, EF 35%. Hx of HTN: BP have been stable PAST MEDICAL HISTORY 05/30/2020: Acute acalculous cholecystitis 09/22/2020: 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 05/03/2020: Acute on chronic systolic CHF (congestive heart failure) ([facility]) 05/30/2020: Aspiration pneumonia ([facility]) 05/03/2020: Chest pain 01/23/2013: Chest pressure 02/14/2021: Chronic diastolic congestive heart failure ([facility]) 09/28/2020: Clostridium difficile diarrhea No date: Complete uterovaginal prolapse No date: Cystocele, midline 06/14/2020: Essential hypertension 05/03/2020: Homozygous Factor V Leiden mutation ([facility]) No date: Hypothyroidism 01/23/2013: IBS (irritable bowel syn (more content not included)... Normal [facility] [id number] 01-15-2024 ECG01 Ventricular Rate : 7 0 BPM Atrial Rate : 70 BPM P-R Interval : 132 ms QRS Duration : 116 ms Q-T Interval : 462 ms QTC Calculation(Bazett) : 498 ms Calculated P [place] : 21 degrees Calculated R [place] : -61 degrees Calculated T [place] : 63 degrees NORMAL SINUS RHYTHM LEFT AXIS DEVIATION INFERIOR MYOCARDIAL INFARCTION , AGE UNDETERMINED ANTEROLATERAL INFARCTION , AGE UNDETERMINED ABNORMAL ECG Confirmed by AUGUSTINE WAN MD ([id number]) on 02/04/2024 10:18:22 AM NAME : SANDRA SCHMITZ PID : [id number] : 1945 Gender : Female Race : ORD : Procedure Date : Jan 15 2024 12:59:19 Edit Date : Feb 04 2024 10:18:28 Diagnosis: NORMAL SINUS RHYTHM LEFT AXIS DEVIATION INFERIOR MYOCARDIAL INFARCTION , AGE UNDETERMINED ANTEROLATERAL INFARCTION , AGE UNDETERMINED ABNORMAL ECG Confirmed by AUGUSTINE WAN MD ([id number]) on 02/04/2024 10:18:22 AM Test Reason : Location : 225 : [facility] Overread By : AUGUSTINE WAN MD Edited By : AUGUSTINE WAN MD Referred By : PILI WELLS Acquired by : Terrie COPE [facility] CNOVon 01-04-2024 CNOV Office Visit (FAMPWS ) ----- SANDRA SCHMITZ ([id number]) 1945 [place]* Date Time Provider Department 01/04/24 4:20 PM [facility] During your visit today, we recorded the following information about you: Mandeep Houser DO 01/10/2024 10:06 AM Signed CC: Sandra Schmitz is a 78 year old female who presents to the office for OMT HPI: Acute on chronic back pain, started yesterday with significant mid to lower back pain. Has been up doing a lot around her home. Otherwise doesn't know what started or triggered her symptoms, no new bowel or bladder changes. Pain is worse when moving from sitting to standing or with standing or walking. No trauma that she is aware of. Pain is severe, has been taking tylenol and using ice and heating pad without relief of symptoms. She is not able to take NSAIDs. Has been doing a lot of new exercise with cardiac rehab which has been held since her back pain flare up. Had improvements after her OMT PAST MEDICAL HISTORY 05/30/2020: Acute acalculous cholecystitis 09/22/2020: 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 05/03/2020: Acute on chronic systolic CHF (congestive heart failure) ([facility]) 05/30/2020: Aspiration pneumonia ([facility]) 05/03/2020: Chest pain 01/23/2013: Chest pressure 02/14/2021: Chronic diastolic congestive heart failure ([facility]) 09/28/2020: Clostridium difficile diarrhea No date: Complete uterovaginal prolapse No date: Cystocele, midline 06/14/2020: Essential hypertension 05/03/2020: Homozygous Factor V Leiden mutation ([facility]) No date: Hypothyroidism 01/23/2013: IBS (irritable bowel syndrome) No date: Palpitation Comment: CHRONIC 05/24/2020: Post-operative state 05/25/2020: Rectocele 05/03/2020: Shortness of breath 05/30/2020: Status post laparoscopic hysterectomy 12/09/2020: Tubular adenoma of colon 05/03/2020: Uterine prolapse PAST SURGICAL HISTORY 01/07/2015: COLONOSCOPY 12/05/2021: COLONOSCOPY Comment: repeat in 5 years 12/06/2009: COLONOSCOPY GEN ANES Comment: X3 LAST ONE IN 200911/08/2012: EGD 12/05/2021: EGD 05/14/1999: PAST SURGICAL HISTORY OF Comment: left foot bunionectomy w/screws 05/14/1981: PAST SURGICAL HISTORY OF Comment: ectopic w/tube removal 2009: PAST SURGICAL HISTORY OF Comment: CYST REMOVED FROM UTERUS 05/24/2020: PAST SURGICAL HISTORY OF Comment: TVH, partial colpectomy, anterior colporrhaphy, Dennis transobturator midurethral sling, cystourethroscopy, rectocele repair with perineorrhaphy, laparoscopic lysis of adhesions and excision of bilateral adnexal structures 09/07/2020: PAST SURGICAL HISTORY OF Comment: Laparoscopic cholecystectomy with intraoperative cholangiograms. Dr. Ragsdale Current Outpatient Medications Medication Sig aluminum-magnesium hydroxide-simethicone 200-200-20 mg/5 mL suspension Take 30 mL by mouth every 6 hours as needed. dicyclomine (BENTYL) 10 mg capsule Take 1 capsule by mouth three times a day as needed (abdominal pain) for up to 20 doses. simethicone, chewable (MYLICON) 80 mg chewable tablet Take 2 tablets by mouth as directed. As needed after meals for pain /gas levothyroxine (LEVOXYL) 100 mcg tablet Take 1 tablet by mouth daily before breakfast. losartan (COZAAR) 25 mg tablet Take 1 tablet by mouth once daily. furosemide (LASIX) 20 mg tablet Take 1 tablet by mouth once daily. metoprolol succinate ER (TOPROL XL) 25 mg 24 hr tablet Take 1 tablet by mouth daily at bedtime. acetaminophen (TYLENOL) 500 mg tablet Take 2 tablets by mouth every 8 hours as needed for pain. cyanocobalamin (VITAMIN B-12) 1,000 mcg tab Take 1 tablet by mouth once daily. Cholecalciferol, Vitamin D3, 50 mcg (2,000 unit) cap Take 2 capsules by mouth once daily. aspirin, enteric coated (ECOTRIN LOW STRENGTH) 81 mg EC tablet Take 1 tablet by mouth once daily. No current facility-administered medications for this visit. ALLERGIES Allergen Reactions Emilio Inhibitors Intolerance Short of breath, symptoms of heart failure Beta-Blockers (Beta* Intolerance Short of breath, symptoms of heart failure Augmentin [Amoxicil* GI Upset Codeine Mental Status Change Patient felt like she was made out of lead Lipitor [Atorvastat* Myalgia Muscle aches Sulfa (Sulfonamide * Intolerance Amlodipine Intolerance lightheaded Social History Tobacco Use Smoking status: Former Current packs/day: 0.00 Types: Cigarettes Quit date: 10/22/2002 Years since quittin.2 Smokeless tobacco: Never Vaping Use Vaping status: Never Used Substance Use Topics Alcohol use: No Drug use: No ROS: See HPI PE: There were no vitals taken for this visit. Gen: AANDOX3, she appears uncomfortable HEENT: PERRLA, EOMs intact b/l, nares without drainage, pharynx without erythema, exudate, lesions, or drainage. Uvula midline. Neck: supple, No cervical LAD, no thyromegaly, no c (more content not included)... Normal [facility] CBC W Auto Differential pane l (Bld)on 12-12-2023 Basophils (Bld) [#/Vol] 0.11 10*3/uL High <0.11 [facility] Comment on above: Order Comment: Speci men Type: BLOOD SPECIMENOrdering Facility: [facility] Address: [address] [place] [address] Performed By: #### 5 7021-8, 4536-7 ####[facility] LABCLIA [id number] [place] [address] [place] Basophils/100 WBC (Bld) 1.2 % Normal [facility] Comment on above: Order Comment: Speci men Type: BLOOD SPECIMENOrdering Facility: [facility] Address: [address] [place] [address] Performed By: #### 5 7021-8, 7 ####[facility] LABCLIA [id number] [place] [address] [place] Differential cell count method Nom (Bld) Auto Normal [facility] Comment on above: Order Comment: Speci men Type: BLOOD SPECIMENOrdering Facility: [facility] Address: [address] [place] [address] Performed By: #### 5 7021-8, 7 ####[facility] LABCLIA [id number] [place] [address] [place] Eosinophils (Bld) [#/Vol] 0.20 10*3/uL Normal <0.46 [facility] Comment on above: Order Comment: Speci men Type: BLOOD SPECIMENOrdering Facility: [facility] Address: [address] [place] [address] Performed By: #### 5 7021-8, 7 ####[facility] LABCLIA [id number] [place] [address] [place] Eosinophils/100 WBC (Bld) 2.1 % Normal [facility] Comment on above: Order Comment: Speci men Type: BLOOD SPECIMENOrdering Facility: [facility] Address: [address] [place] [address] Performed By: #### 5 7021-8, 7 ####[facility] LABCLIA [id number] [address] [address] [place] Erythrocyte distribution width (RBC) [Ratio] 14.4 % Normal 11.5-15.0 [facility] Comment on above: Order Comment: Speci men Type: BLOOD SPECIMENOrdering Facility: [facility] Address: [address] [place] [address] Performed By: #### 5 7021-8, 7 ####[facility] LABIA [id number] [place] [address] [place] Hematocrit (Bld) [Volume fraction] 40.5 % Normal 36.0-46.0 [facility] Comment on above: Order Comment: Speci men Type: BLOOD SPECIMENOrdering Facility: [facility] Address: [address] [place] [address] Performed By: #### 5 7021-8, 7 ####[facility] LABIA [id number] [place] [id number] [place] Hemoglobin (Bld) [Mass/Vol] 12.6 g/dL Normal 11.5-15.5 [facility] Comment on above: Order Comment: Speci men Type: BLOOD SPECIMENOrdering Facility: [facility] Address: [address] [place] [address] Performed By: #### 5 7021-8, 7 ####[facility] LABIA [id number] [address] [address] [place] Immature granulocytes (Bld) [#/Vol] 0.05 10*3/uL Normal <0.10 [facility] Comment on above: Order Comment: Speci men Type: BLOOD SPECIMENOrdering Facility: [facility] Address: [address] [place] [address] Performed By: #### 5 7021-8, 4536-7 ####[facility] LABCLIA [id number] [place] [address] [place] Immature granulocytes/100 WBC (Bld) 0.5 % Normal [facility] Comment on above: Order Comment: Speci men Type: BLOOD SPECIMENOrdering Facility: [facility] Address: [address] [place] [address] Performed By: #### 5 7021-8, 7 ####[facility] LABCLIA [id number] [place] [address] [place] Lymphocytes (Bld) [#/Vol] 3.55 10*3/uL Normal 1.00-4.00 [facility] Comment on above: Order Comment: Speci men Type: BLOOD SPECIMENOrdering Facility: [facility] Address: [address] [place] [address] Performed By: #### 5 7021-8, 7 ####[facility] LABCLIA [id number] [place] [address] [place] Lymphocytes/100 WBC (Bld) 37.6 % Normal [facility] Comment on above: Order Comment: Speci men Type: BLOOD SPECIMENOrdering Facility: [facility] Address: [address] [place] [address] Performed By: #### 5 7021-8, 7 ####[facility] LABCLIA [id number] [place] [address] [place] MCH (RBC) [Entitic mass] 28.8 pg Normal 26.0-34.0 [facility] Comment on above: Order Comment: Speci men Type: BLOOD SPECIMENOrdering Facility: [facility] Address: [address] [place] [address] Performed By: #### 5 7021-8, 4536-7 ####[facility] LABCLIA [id number] [place] [id number] [place] MCHC (RBC) [Mass/Vol] 31.1 g/dL Normal 30.5-36.0 [facility] Comment on above: Order Comment: Speci men Type: BLOOD SPECIMENOrdering Facility: [facility] Address: [address] [place] [address] Performed By: #### 5 7021-8, 7-7 ####[facility] LABCLIA [id number] [place] [address] [place] MCV (RBC) [Entitic vol] 92.5 fL Normal 80.0-100.0 [facility] Comment on above: Order Comment: Speci men Type: BLOOD SPECIMENOrdering Facility: [facility] Address: [address] [place] [address] Performed By: #### 5 7021-8, 4537-7 ####[facility] LABCLIA [id number] [place] [address] [place] Monocytes (Bld) [#/Vol] 1.02 10*3/uL High <0.87 [facility] Comment on above: Order Comment: Speci men Type: BLOOD SPECIMENOrdering Facility: [facility] Address: [address] [place] [address] Performed By: #### 5 7021-8, 4536-7 ####[facility] LABCLIA [id number] [place] [address] [place] Monocytes/100 WBC (Bld) 10.8 % Normal [facility] Comment on above: Order Comment: Speci men Type: BLOOD SPECIMENOrdering Facility: [facility] Address: [address] [place] [address] Performed By: #### 5 7021-8, 4537-7 ####[facility] LABCLIA [id number] [place] [id number] [place] Neutrophils (Bld) [#/Vol] 4.51 10*3/uL Normal 1.45-7.50 [facility] Comment on above: Order Comment: Speci men Type: BLOOD SPECIMENOrdering Facility: [facility] Address: [address] [place] [address] Performed By: #### 5 7021-8, 4537-7 ####[facility] LABCLIA [id number] [place] [address] [place] Neutrophils/100 WBC (Bld) 47.8 % Normal [facility] Comment on above: Order Comment: Speci men Type: BLOOD SPECIMENOrdering Facility: [facility] Address: [address] [place] [address] Performed By: #### 5 7021-8, 453-7 ####[facility] LABCLIA [id number] [place] [address] [place] Nucleated RBC (Bld) [#/Vol] 10*3/uL Normal <0.01 [facility] Comment on above: Order Comment: Speci men Type: BLOOD SPECIMENOrdering Facility: [facility] Address: [address] [place] [address] Performed By: #### 5 7021-8, 4537-7 ####[facility] LABCLIA [id number] [place] [address] [place] Nucleated RBC/100 WBC (Bld) [Ratio] 0.0 /100 WBC Normal [facility] Comment on above: Order Comment: Speci men Type: BLOOD SPECIMENOrdering Facility: [facility] Address: [address] [place] [address] Performed By: #### 5 7021-8, 4537-7 ####[facility] LABCLIA [id number] [place] [address] [place] Platelet mean volume (Bld) [Entitic vol] 10.5 fL Normal 9.0-12.7 [facility] Comment on above: Order Comment: Speci men Type: BLOOD SPECIMENOrdering Facility: [facility] Address: [address] [place] [address] Performed By: #### 5 7021-8, 4537-7 ####[facility] LABCLIA [id number] [place] [address] [place] Platelets (Bld) [#/Vol] 328 10*3/uL Normal 150-400 [facility] Comment on above: Order Comment: Specjeffy jesus Type: BLOOD SPECIMENOrdering Facility: [facility] Address: [address] [place] [address] Performed By: #### 5 7021-8, 4537-7 ####[facility] LABCLIA [id number] [place] [address] [place] RBC (Bld) [#/Vol] 4.38 10*6/uL Normal 3.90-5.20 [facility] Comment on above: Order Comment: Lenard jesus Type: BLOOD SPECIMENOrdering Facility: [facility] Address: [address] [place] [address] Performed By: #### 5 7021-8, 4537-7 ####[facility] LABIA [id number] [place] [address] [place] WBC (Bld) [#/Vol] 9.44 10*3/uL Normal 3.70-11.00 [facility] Comment on above: Order Comment: Lenard jesus Type: BLOOD SPECIMENOrdering Facility: [facility] Address: [address] [place] [address] Performed By: #### 5 7021-8, 4537-7 ####[facility] LABIA [id number] [place] [address] [place] CELIAC SCREENon 12-12-2023 GLIAD DEAMIDATED IGA QUAL Negative Normal Negative, Test not Indicated [facility] Comment on above: Order Comment: Lenard jesus Type: BLOOD SPECIMENOrdering Facility: [facility] Address: [address] [place] [address] Result Comment: This is used as an aid in diagnosis of celiac disease. Clinical correlation is required. The following results were obtained with an [employer] QUANTA Lite Gliadin IgA BLAYNE Gliadin. Gliadin IgA values obtained with different manufacturers' assay methods may not be used interchangeably. The magnitude of the reported IgA levels cannot be correlated to an endpoint titer. Performed By: #### L [id number] ####[facility] LABCLIA [id number] [address] Gliadin peptide IgA Qn (S) 4 Units Normal <20 [facility] Comment on above: Order Comment: Speci men Type: BLOOD SPECIMENOrdering Facility: [facility] Address: [address] [place] [address] Performed By: #### L [id number] ####[facility] LABCLIA [id number] [address] [place] INTERPRETATION No serological evide nce of celiac disease, however, if celiac disease is clinically suspected and patient is not on gluten-free diet, histological diagnosis may be considered. HLA testing may help with risk assessment. Normal [facility] Comment on above: Order Comment: Lenard jesus Type: BLOOD SPECIMENOrdering Facility: [facility] Address: [address] [place] [address] Performed By: #### L [id number] ####[facility] LABCLIA [id number] [address] TRANSGLUTAMINASE IGA ABS INTERPRETATION Negative Normal Negative [facility] Comment on above: Order Comment: Lenard jesus Type: BLOOD SPECIMENOrdering Facility: [facility] Address: [address] [place] [address] Result Comment: The following results were obtained with [employer] QUANTA Lite R h-tTG IgA BLAYNE.???R h-tTG IgA values obtained with different manufacturers' assay methods may not be used interchangeably. The magnitude of the reported IgA levels cannot be corelated to an endpoint???concentration. This is used as an aid in diagnosis of celiac disease. Clinical correlation is required. Performed By: #### L [id number] ####[facility] LABCLIA [id number] [place] [address] [place] tTG IgA Qn (S) <2 Normal <4 [facility] Comment on above: Order Comment: Speci men Type: BLOOD SPECIMENOrdering Facility: [facility] Address: [address] [place] [address] Performed By: #### L [id number] ####[facility] LABCLIA [id number] [address] [place] CNOVon 12-12-2023 CNOV Office Visit (FAMPWS ) ----- SANDRA SCHMITZ ([id number]) 1945 [place] Date Time Provider Department 12/12/23 3:40 PM [facility] During your visit today, we recorded the following information about you: Mandeep Houser, 12/12/2023 5:23 PM Signed CC: Sandra Schmitz is a 78 year old female who presents to the office for OMT HPI: Acute back pain, started yesterday with significant mid to lower back pain. Has been up doing a lot around her home. Otherwise doesn't know what started or triggered her symptoms, no new bowel or bladder changes. Pain is worse when moving from sitting to standing or with standing or walking. No trauma that she is aware of. Pain is severe, has been taking tylenol and using ice and heating pad without relief of symptoms. She is not able to take NSAIDs. Has been doing a lot of new exercise with cardiac rehab which has been held since her back pain flare up. Had improvements after her OMT PAST MEDICAL HISTORY 05/30/2020: Acute acalculous cholecystitis 09/22/2020: 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 05/03/2020: Acute on chronic systolic CHF (congestive heart failure) ([facility]) 05/30/2020: Aspiration pneumonia ([facility]) 05/03/2020: Chest pain 01/23/2013: Chest pressure 02/14/2021: Chronic diastolic congestive heart failure ([facility]) 09/28/2020: Clostridium difficile diarrhea No date: Complete uterovaginal prolapse No date: Cystocele, midline 06/14/2020: Essential hypertension 05/03/2020: Homozygous Factor V Leiden mutation ([facility]) No date: Hypothyroidism 01/23/2013: IBS (irritable bowel syndrome) No date: Palpitation Comment: CHRONIC 05/24/2020: Post-operative state 05/25/2020: Rectocele 05/03/2020: Shortness of breath 05/30/2020: Status post laparoscopic hysterectomy 12/09/2020: Tubular adenoma of colon 05/03/2020: Uterine prolapse PAST SURGICAL HISTORY 01/07/2015: COLONOSCOPY 12/05/2021: COLONOSCOPY Comment: repeat in 5 years 12/06/2009: COLONOSCOPY GEN ANES Comment: X3 LAST ONE IN 200911/08/2012: EGD 12/05/2021: EGD 05/14/1999: PAST SURGICAL HISTORY OF Comment: left foot bunionectomy w/screws 05/14/1981: PAST SURGICAL HISTORY OF Comment: ectopic w/tube removal 2009: PAST SURGICAL HISTORY OF Comment: CYST REMOVED FROM UTERUS 05/24/2020: PAST SURGICAL HISTORY OF Comment: TVH, partial colpectomy, anterior colporrhaphy, Dennis transobturator midurethral sling, cystourethroscopy, rectocele repair with perineorrhaphy, laparoscopic lysis of adhesions and excision of bilateral adnexal structures 09/07/2020: PAST SURGICAL HISTORY OF Comment: Laparoscopic cholecystectomy with intraoperative cholangiograms. Dr. Ragsdale Current Outpatient Medications Medication Sig aluminum-magnesium hydroxide-simethicone 200-200-20 mg/5 mL suspension Take 30 mL by mouth every 6 hours as needed. dicyclomine (BENTYL) 10 mg capsule Take 1 capsule by mouth three times a day as needed (abdominal pain) for up to 20 doses. simethicone, chewable (MYLICON) 80 mg chewable tablet Take 2 tablets by mouth as directed. As needed after meals for pain /gas levothyroxine (LEVOXYL) 100 mcg tablet Take 1 tablet by mouth daily before breakfast. losartan (COZAAR) 25 mg tablet Take 1 tablet by mouth once daily. furosemide (LASIX) 20 mg tablet Take 1 tablet by mouth once daily. metoprolol succinate ER (TOPROL XL) 25 mg 24 hr tablet Take 1 tablet by mouth daily at bedtime. acetaminophen (TYLENOL) 500 mg tablet Take 2 tablets by mouth every 8 hours as needed for pain. cyanocobalamin (VITAMIN B-12) 1,000 mcg tab Take 1 tablet by mouth once daily. Cholecalciferol, Vitamin D3, 50 mcg (2,000 unit) cap Take 2 capsules by mouth once daily. aspirin, enteric coated (ECOTRIN LOW STRENGTH) 81 mg EC tablet Take 1 tablet by mouth once daily. No current facility-administered medications for this visit. ALLERGIES Allergen Reactions Emilio Inhibitors Intolerance Short of breath, symptoms of heart failure Beta-Blockers (Beta* Intolerance Short of breath, symptoms of heart failure Augmentin [Amoxicil* GI Upset Codeine Mental Status Change Patient felt like she was made out of lead Lipitor [Atorvastat* Myalgia Muscle aches Sulfa (Sulfonamide * Intolerance Amlodipine Intolerance lightheaded Social History Tobacco Use Smoking status: Former Types: Cigarettes Quit date: 10/22/2002 Years since quittin.1 Smokeless tobacco: Never Vaping Use Vaping Use: Never used Substance Use Topics Alcohol use: No Drug use: No ROS: See HPI PE: There were no vitals taken for this visit. Gen: AANDOX3, she appears uncomfortable HEENT: PERRLA, EOMs intact b/l, nares without drainage, pharynx without erythema, exudate, lesions, or drainage. Uvula midline. Neck: supple, No cervical LAD, no thyromegaly, no carotid bruits, suboccipital fullness ri (more content not included)... Normal [facility] CRP SerPl-ncon 12-12-2023 CRP [Mass/Vol] 1.2 mg/dL High <0.9 [facility] Comment on above: Order Comment: Speci men Type: BLOOD SPECIMENOrdering Facility: [facility] Address: [address] [place], [place] [address] Performed By: #### 2 4322-12, 1987-09 ####[facility] LABCLIA [id number] [address] [address] [place] Comprehensive metabolic 2000 panelon 12-12-2023 Albumin [Mass/Vol] 4.0 g/dL Normal 3.9-4.9 [facility] Comment on above: Order Comment: Speci men Type: BLOOD SPECIMENOrdering Facility: [facility] Address: [address] [place] [address] Performed By: #### 2 4322-12, 1987-09 ####[facility] LABCLIA [id number] [place] [id number] [place] ALP [Catalytic activity/Vol] 68 U/L Normal 34-123 [facility] Comment on above: Order Comment: Speci men Type: BLOOD SPECIMENOrdering Facility: [facility] Address: [address] [place] [address] Performed By: #### 2 4322-12, 1987-09 ####[facility] LABCLIA [id number] [place] [id number] [place] ALT [Catalytic activity/Vol] 11 U/L Normal 7-38 [facility] Comment on above: Order Comment: Speci men Type: BLOOD SPECIMENOrdering Facility: [facility] Address: [address] [place] [address] Performed By: #### 2 4322-12, 1987-09 ####[facility] LABCLIA [id number] [address] [address] [place] Anion gap [Moles/Vol] 12 mmol/L Normal 8-15 [facility] Comment on above: Order Comment: Speci men Type: BLOOD SPECIMENOrdering Facility: [facility] Address: [address] [place] [address] Performed By: #### 2 4322-12, 1987-09 ####[facility] LABCLIA [id number] [place] [id number] [place] AST [Catalytic activity/Vol] 18 U/L Normal 13-35 [facility] Comment on above: Order Comment: Speci men Type: BLOOD SPECIMENOrdering Facility: [facility] Address: [address] [place] [address] Performed By: #### 2 4322-12, 1987-09 ####[facility] LABCLIA [id number] [place] [id number] [place] Bilirubin [Mass/Vol] 0.3 mg/dL Normal 0.2-1.3 [facility] Comment on above: Order Comment: Speci men Type: BLOOD SPECIMENOrdering Facility: [facility] Address: [address] [place] [address] Performed By: #### 2 4322-12, 1987-09 ####[facility] LABCLIA [id number] [place] [address] [place] Calcium [Mass/Vol] 9.4 mg/dL Normal 8.5-10.2 [facility] Comment on above: Order Comment: Speci men Type: BLOOD SPECIMENOrdering Facility: [facility] Address: [address] [place] [address] Performed By: #### 2 4322-12, 1987-09 ####[facility] LABCLIA [id number] [place] [id number] [place] Chloride [Moles/Vol] 103 mmol/L Normal 98-107 [facility] Comment on above: Order Comment: Speci men Type: BLOOD SPECIMENOrdering Facility: [facility] Address: [address] [place] [address] Performed By: #### 2 4322-12, 1987-09 ####[facility] LABCLIA [id number] [place] [id number] [place] CO2 [Moles/Vol] 26 mmol/L Normal 22-30 [facility] Comment on above: Order Comment: Speci men Type: BLOOD SPECIMENOrdering Facility: [facility] Address: [address] [place] [address] Performed By: #### 2 4322-12, 1987-09 ####[facility] LABCLIA [id number] [address] [address] [place] Creatinine [Mass/Vol] 0.96 mg/dL Normal 0.58-0.96 [facility] Comment on above: Order Comment: Speci men Type: BLOOD SPECIMENOrdering Facility: [facility] Address: [address] [place] [address] Performed By: #### 2 4322-12, 1987-09 ####[facility] LABCLIA [id number] [place] [address] [place] Creatinine and Glomerular filtration rate.predicted panel (S/P/Bld) 61 mL/min/1.73m??? Normal >=60 [facility] Comment on above: Order Comment: Specjeffy jesus Type: BLOOD SPECIMENOrdering Facility: [facility] Address: [address] [place] [address] Result Comment: Aaron mated Glomerular Filtration Rate (eGFR) is calculated using the 2020 CKD-EPI creatinine equation. This equation utilizes serum creatinine, sex, and age as parameters. The creatinine assay has traceable calibration to isotope dilution-mass spectrometry. Refer to KDIGO guidelines for clinical interpretation. In patients with unstable renal function, e.g. those with acute kidney injury, the eGFR may not accurately reflect actual GFR. Performed By: #### 2 4322-12, 1987-09 ####[facility] LABCLIA [id number] [address] [address] [place] Glucose [Mass/Vol] 82 mg/dL Normal 74-99 [facility] Comment on above: Order Comment: Speci edin Type: BLOOD SPECIMENOrdering Facility: [facility] Address: [address] [place] [address] Result Comment: The [place] Diabetes [employer] (ADA) provides guidance for cutoff values for fasting glucose and random glucose. The ADA defines fasting as no caloric intake for at least 8 hours. Fasting plasma glucose results between 100 to 125 mg/dL indicate increased risk for diabetes (prediabetes). Fasting plasma glucose results greater than or equal to 126 mg/dL meet the criteria for diagnosis of diabetes. In the absence of unequivocal hyperglycemia, results should be confirmed by repeat testing. In a patient with classic symptoms of hyperglycemia or hyperglycemic crisis, random plasma glucose results greater than or equal to 200 mg/dL meet the criteria for diagnosis of diabetes. Reference: Standards of Medical Care in Diabetes 2016, [place] [employer]. Diabetes Care. 2016.39(Suppl 1). Performed By: #### 2 43207-19, 1987-09 ####[facility] LABCLIA [id number] [place] [address] [place] Potassium [Moles/Vol] 4.0 mmol/L Normal 3.7-5.1 [facility] Comment on above: Order Comment: Lenard jesus Type: BLOOD SPECIMENOrdering Facility: [facility] Address: [address] [place] [address] Performed By: #### 2 4322-12, 1987-09 ####[facility] LABIA [id number] [place] [address] [place] Protein [Mass/Vol] 7.2 g/dL Normal 6.3-8.0 [facility] Comment on above: Order Comment: Lenard jesus Type: BLOOD SPECIMENOrdering Facility: [facility] Address: [address] [place] [address] Performed By: #### 2 4322-12, 1987-09 ####[facility] LABCLIA [id number] [place] [id number] [place] Sodium [Moles/Vol] 141 mmol/L Normal 136-144 [facility] Comment on above: Order Comment: Lenard jesus Type: BLOOD SPECIMENOrdering Facility: [facility] Address: [address] [place] [address] Performed By: #### 2 8, 1987-09 ####[facility] LABCLIA [id number] [place] [address] [place] Urea nitrogen [Mass/Vol] 22 mg/dL High 7-21 [facility] Comment on above: Order Comment: Speci edin Type: BLOOD SPECIMENOrdering Facility: [facility] Address: [address] [place] [address] Performed By: #### 2 4323-8, 1987-09 ####[facility] LABCLIA [id number] [place] [id number] [place] ESR Westergren method (Bld) [Velocity]on 12-12-2023 ESR (Bld) [Velocity] 32 mm/h [facility] 0-20 [facility] Comment on above: Order Comment: Ernestinei edin Type: BLOOD SPECIMENOrdering Facility: [facility] Address: [address] [place] [address] Performed By: #### 5 7021-8, 4537-7 ####[facility] LABIA [id number] [address] [place] IgA SerPl-mCncon 12-12-2023 IgA [Mass/Vol] 177 mg/dL Normal 70-400 [facility] Comment on above: Order Comment: Lenard jesus Type: BLOOD SPECIMENOrdering Facility: [facility] Address: [address] [place] [address] Performed By: #### 2 458-8 ####[facility] LABCLIA [id number] [place] [id number] [place] Jayna 12-06-2023 TIMN Telephone (EDUARDO) ----- SANDRA SCHMITZ ([id number]) 1945 [place] Date Time Provider Department 12/06/23 PILI WELLS During your visit today, we recorded the following information about you: Pili Wells MD 12/06/2023 6:51 PM Signed Echo results reviewed. LVEF remains stable, mitral regurgitation is improved. At this time we will continue with medications. No changes Helen Ramachandran RN 12/10/2023 11:41 AM Signed Pili Wells MD In, Please call patient with results. She doesn't have mychart for me to send message. Thanks, Helen Ramachandran RN 12/10/2023 11:41 AM Signed I spoke with pt about information below from Dr. Wells. Pt wants Dr. Wells to know that she suspended cardiac rehab d/t back and hip issues that her PCP, Dr. Houser has recently recommended water therapy. Pt also said she is following ED 's advice (11/15/23-11/18/23) for furosemide decreased doses PRN for edema. No further questions. Pt confirmed understanding. Allergies As of Date: 12/06/2023 Noted Allergy Reaction EMILIO INHIBITORS 05/03/2020 5 - Intolerance Comments: Short of breath, symptoms of heart failure BETA-BLOCKERS (BETA-ADRENERGIC BL*05/03/2020 5 - Intolerance Comments: Short of breath, symptoms of heart failure AUGMENTIN (AMOXICILLIN-POT CLAVUL*01/23/2013 8 - GI Upset CODEINE 10/24/2012 1 - Mental Status Change Comments: Patient felt like she was made out of lead LIPITOR (ATORVASTATIN) 05/05/2020 17 - Myalgia Comments: Muscle aches SULFA (SULFONAMIDE ANTIBIOTICS) 04/28/2020 5 - Intolerance AMLODIPINE 04/28/2020 5 - Intolerance Comments: lightheaded Date Reviewed: 11/15/2023 Reviewed by: Linda Ochoa LPN - Fully Assessed Prescriptions as of 12/10/2023 - aluminum-magnesium hydroxide-simethicone 200-200-20 mg/5 mL suspension Take 30 mL by mouth every 6 hours as needed. - dicyclomine (BENTYL) 10 mg capsule Take 1 capsule by mouth three times a day as needed (abdominal pain) for up to 20 doses. - simethicone, chewable (MYLICON) 80 mg chewable tablet Take 2 tablets by mouth as directed. As needed after meals for pain /gas - levothyroxine (LEVOXYL) 100 mcg tablet Take 1 tablet by mouth daily before breakfast. - losartan (COZAAR) 25 mg tablet Take 1 tablet by mouth once daily. - furosemide (LASIX) 20 mg tablet Take 1 tablet by mouth once daily. - metoprolol succinate ER (TOPROL XL) 25 mg 24 hr tablet Take 1 tablet by mouth daily at bedtime. - acetaminophen (TYLENOL) 500 mg tablet Take 2 tablets by mouth every 8 hours as needed for pain. - cyanocobalamin (VITAMIN B-12) 1,000 mcg tab Take 1 tablet by mouth once daily. - Cholecalciferol, Vitamin D3, 50 mcg (2,000 unit) cap Take 2 capsules by mouth once daily. - aspirin, enteric coated (ECOTRIN LOW STRENGTH) 81 mg EC tablet Take 1 tablet by mouth once daily. Problem List As Of Date 12/06/2023 Noted Resolved IBS (irritable bowel syndrome) [K58.9] 01/23/2013 Palpitations [R00.2] 12/16/2014 Obesity, Class I, BMI 30-34.9 [E66.9] 03/10/2020 Shortness of breath [R06.02] 05/03/2020 06/14/2020 Acute on chronic systolic CHF (congestive heart*05/03/2020 Homozygous Factor V Leiden mutation (HCC) [D68.*05/03/2020 Hypothyroidism [E03.9] 01/24/2018 Chest pain [R07.9] 05/03/2020 06/14/2020 Post-operative state [Z98.890] 05/24/2020 06/14/2020 Rectocele [N81.6] 05/25/2020 Cystocele, midline [N81.11] 05/25/2020 Aspiration pneumonia (HCC) [J69.0] 05/30/2020 09/22/2020 Acute acalculous cholecystitis [K81.0] 05/30/2020 Primary hypertension [I10] 06/14/2020 Acute idiopathic gout involving toe of left cristal*09/22/2020 Diverticulitis [K57.92] 09/29/2020 Hypokalemia [E87.6] 09/29/2020 Hospital discharge follow-up [Z09] 12/06/2020 Tubular adenoma of colon [D12.6] 12/09/2020 Mixed hyperlipidemia [E78.2] 12/29/2020 Chronic pain of right ankle [M25.571, G89.29] 12/29/2020 Kidney insufficiency [N28.9] 12/29/2020 Chronic systolic congestive heart failure (HCC)*02/14/2021 Valvular heart disease [I38] 04/06/2021 Colon cancer screening [Z12.11] 04/06/2021 Left bundle branch block [I44.7] 05/23/2021 Left shoulder pain [M25.512] 07/11/2021 Lateral epicondylitis of left elbow [M77.12] 07/11/2021 Cardiomegaly [I51.7] 02/13/2022 Chronic bilateral thoracic back pain [M54.6, G8*07/18/2022 Rib pain on right side [R07.81] 07/18/2022 Somatic dysfunction of rib [M99.08] 07/18/2022 Somatic dysfunction of spine, thoracic [M99.02] 07/18/2022 Somatic dysfunction of spine, cervical [M99.01] 07/18/2022 Foot drop, right [M21.371] 08/02/2022 Arthrosis of ankle, right [M19.071] 08/02/2022 Coronary artery disease involving win[place] lopez*08/02/2022 Vitamin D deficiency [E55.9] 08/02/2022 Somatic dysfunction of head region [M99.00] 08/10/2022 Chronic neck pain [M54.2, G89.29] 08/24/2022 Chronic bronchitis (HCC) [J42] 09/11/2022 SVT (supraventricular tachycardia) (HCC) (more content not included)... Normal [facility] ECHOon 12-05-2023 CONCLUSIONS: - Exam indication: Heart failure - The left ventricle is severely dilated. Left ventricular systolic function is severely decreased. EF = 23 5% (2D biplane) Definity contrast used for endocardial border detection. Left ventricular diastolic function was not evaluated due to pacing. - The right ventricle is normal in size. Right ventricular systolic function is normal. - There are no significant valvular abnormalities. - There is mild (1+) mitral regurgitation. - There is trivial to mild aortic regurgitation. - There is moderate (2+) pulmonic valve regurgitation. - Estimated right ventricular systolic pressure is 30 mmHg consistent with normal pulmonary artery pressures. Estimated right atrial pressure is 8 mmHg based on IVC assessment. - There is evidence of intracardiac shunting as detected by agitated saline contrast. - Exam was compared with the prior CC echocardiographic exam performed on 07/12/23 prior EF 26%. * * * Final * * * [facility] Echocardiography Report: Transthoracic Echo [facility] Date of service: 12/05/2023 1:16:13 PM Ordering physician: PILI WELLS Indication: Heart failure Technologist: Maritza Ahn [facility] Interpreting physician: Jim Gonzalez DO PATIENT: Name: MRS. SANDRA SCHMITZ : 1945 Age: 78 years Gender: F History of hypertension, dyslipidemia, heart failure with hospitalization, cardiomyopathy, coronary artery disease and arrhythmia. Previous cardiovascular interventions: CUT PLUG PACKER-D (07/2023) Primary rhythm: V. Paced. Height: 160.02 cm BSA: 1.97 m Weight: 87.54 kg BMI: 34.2 kg/m Heart rate 63 bpm Blood pressure 115/62 mmHg Color Doppler was utilized to interrogate the cardiac valves assessed and spectral Doppler was utilized to determine the flow velocities and pressure gradients reported in this exam. MEASUREMENTS: Value Indexed Normal Max aortic dimension 3.3 cm Ao < 3.8 Left atrium diameter 4.2 cm (2D) Left atrial volume 43 ml (biplane A-L) 22 ml/m Eugenio <= 34 LV ID (diastole) 4.1 cm (2D) 2.08 cm/m LV ID (systole) 3.6 cm (2D) 1.82 cm/m IVS, leaflet tips 1.3 cm (2D) Posterior wall thickness 1.1 cm (2D) Left ventricular mass 170 g (2D) 86 g/m LV stroke volume 42 ml (2D biplane) LV end diastolic volume 184 ml (2D biplane) 93.1 ml/m 29<=EDVi<62 LV end systolic volume 142 ml (2D biplane) 71.9 ml/m Ejection Fraction 23 % (2D biplane) EF > 54 FINDINGS: LEFT VENTRICLE The left ventricle is severely dilated. Left ventricular systolic function is severely decreased globally. Left ventricular diastolic function was not evaluated due to pacing. Mitral annular lateral E/e': 6.3. Mitral annular septal E/e': 11.3. Definity contrast used for endocardial border detection. Wall Motion: The entire anterior wall, entire lateral wall, entire septum, entire apex, and entire inferior wall are severely hypokinetic. RIGHT VENTRICLE The right ventricle is normal in size. Pacer wires are noted in the right ventricle. Right ventricular systolic function is normal. RV systolic tissue Doppler velocity is 8.1 cm/s. Tricuspid annular displacement is 1.5 cm. Estimated right ventricular systolic pressure is 30 mmHg consistent with normal pulmonary artery pressures. Estimated right atrial pressure is 8 mmHg based on IVC assessment. LEFT ATRIUM The left atrial cavity is normal in size. RIGHT ATRIUM The right atrial cavity is normal in size. Pacer wires are noted in the right atrium. Inferior Vena Cava: The inferior vena cava appears normal measuring 1.8 cm. The vessel decreases less than 50 percent with inspiration. MITRAL VALVE The mitral valve leaflets are structurally normal. There is mild (1+) mitral valve regurgitation. The peak mitral E/A ratio is 0.39. The average mitral E/e' ratio is 8.8. TRICUSPID VALVE The tricuspid valve leaflets are structurally normal. There is trace tricuspid valve regurgitation. AORTIC VALVE The aortic valve cusps are structurally normal. There is trace (trace - 1+) aortic valve regurgitation. Tricuspid aortic valve. The peak gradient is 4 mmHg (peak velocity = 105.5 cm/s). PULMONIC VALVE The pulmonic valve cusps are structurally normal. There is moderate (2+) pulmonic valve regurgitation. The peak gradient is 3 mmHg. AORTA The visualized aorta is normal in size. Measurements - Sinus: 3.1 cm. Mid ascending aorta 3.3 cm. PULMONARY ARTERIES The main pulmonary artery is normal in size. The main pulmonary artery diameter is 2.1 cm (diastolic). INTERATRIAL SEPTUM The interatrial septum is mobile. There is evidence of intracardiac shunting as detected by agitated saline contrast. INTERVENTRICULAR SEPTUM There is no flow through the interventricular septum as detected by Doppler. [facility] Jayna 12-03-2023 CNPN Telephone (FAMPWS) ----- SANDRA SCHMITZ ([id number]) 1945 [place]* Date Time Provider Department 12/03/23 [facility] During your visit today, we recorded the following information about you: Teagan Dickerson RN 12/03/2023 10:53 AM Signed Patient calls and states that Dr. Houser had discussed with her at last appointment that patient should hold or stop cardiac rehab due to patient's back pain. Patient states that she talked to Cardiac Rehab who had told her that there may be a chance that cardiac rehab could be put on hold but that would only be if Dr. Houser sent orders or letter to have patient hold cardiac rehab due to patient's back pain. Patient states that order/letter should be faxed to [facility] Cardiac Rehab [phone]. Please review and advise, CARO Soria Jordan L, DO 12/05/2023 7:20 AM Signed Please create letter as below to hold cardiac rehab due to her back pain for 2-3 weeks DO Juana Gamez Kim E, LPN 12/05/2023 11:08 AM Signed letter completed and signed and faxed to [facility] cardiac rehab. Lillian Arias LPN Allergies As of Date: 12/03/2023 Noted Allergy Reaction EMILIO INHIBITORS 05/03/2020 5 - Intolerance Comments: Short of breath, symptoms of heart failure BETA-BLOCKERS (BETA-ADRENERGIC BL*05/03/2020 5 - Intolerance Comments: Short of breath, symptoms of heart failure AUGMENTIN (AMOXICILLIN-POT CLAVUL*01/23/2013 8 - GI Upset CODEINE 10/24/2012 1 - Mental Status Change Comments: Patient felt like she was made out of lead LIPITOR (ATORVASTATIN) 05/05/2020 17 - Myalgia Comments: Muscle aches SULFA (SULFONAMIDE ANTIBIOTICS) 04/28/2020 5 - Intolerance AMLODIPINE 04/28/2020 5 - Intolerance Comments: lightheaded Date Reviewed: 11/15/2023 Reviewed by: Linda Ochoa LPN - Fully Assessed Reason for Visit: Patient Request [[id number]] Prescriptions as of 12/05/2023 - aluminum-magnesium hydroxide-simethicone 200-200-20 mg/5 mL suspension Take 30 mL by mouth every 6 hours as needed. - dicyclomine (BENTYL) 10 mg capsule Take 1 capsule by mouth three times a day as needed (abdominal pain) for up to 20 doses. - simethicone, chewable (MYLICON) 80 mg chewable tablet Take 2 tablets by mouth as directed. As needed after meals for pain /gas - levothyroxine (LEVOXYL) 100 mcg tablet Take 1 tablet by mouth daily before breakfast. - losartan (COZAAR) 25 mg tablet Take 1 tablet by mouth once daily. - furosemide (LASIX) 20 mg tablet Take 1 tablet by mouth once daily. - metoprolol succinate ER (TOPROL XL) 25 mg 24 hr tablet Take 1 tablet by mouth daily at bedtime. - acetaminophen (TYLENOL) 500 mg tablet Take 2 tablets by mouth every 8 hours as needed for pain. - cyanocobalamin (VITAMIN B-12) 1,000 mcg tab Take 1 tablet by mouth once daily. - Cholecalciferol, Vitamin D3, 50 mcg (2,000 unit) cap Take 2 capsules by mouth once daily. - aspirin, enteric coated (ECOTRIN LOW STRENGTH) 81 mg EC tablet Take 1 tablet by mouth once daily. Facility-Administered Medications as of 12/05/2023 - perflutren lipid microspheres 1.3 mL in NaCl (PF) 0.9% 10 mL injection (DEFINITY) - sodium chloride 0.9 % (flush) 10 mL (BD POSIFLUSH) Problem List As Of Date 12/03/2023 Noted Resolved IBS (irritable bowel syndrome) [K58.9] 01/23/2013 Palpitations [R00.2] 12/16/2014 Obesity, Class I, BMI 30-34.9 [E66.9] 03/10/2020 Shortness of breath [R06.02] 05/03/2020 06/14/2020 Acute on chronic systolic CHF (congestive heart*05/03/2020 Homozygous Factor V Leiden mutation (HCC) [D68.*05/03/2020 Hypothyroidism [E03.9] 01/24/2018 Chest pain [R07.9] 05/03/2020 06/14/2020 Post-operative state [Z98.890] 05/24/2020 06/14/2020 Rectocele [N81.6] 05/25/2020 Cystocele, midline [N81.11] 05/25/2020 Aspiration pneumonia (HCC) [J69.0] 05/30/2020 09/22/2020 Acute acalculous cholecystitis [K81.0] 05/30/2020 Primary hypertension [I10] 06/14/2020 Acute idiopathic gout involving toe of left cristal*09/22/2020 Diverticulitis [K57.92] 09/29/2020 Hypokalemia [E87.6] 09/29/2020 Hospital discharge follow-up [Z09] 12/06/2020 Tubular adenoma of colon [D12.6] 12/09/2020 Mixed hyperlipidemia [E78.2] 12/29/2020 Chronic pain of right ankle [M25.571, G89.29] 12/29/2020 Kidney insufficiency [N28.9] 12/29/2020 Chronic systolic congestive heart failure (HCC)*02/14/2021 Valvular heart disease [I38] 04/06/2021 Colon cancer screening [Z12.11] 04/06/2021 Left bundle branch block [I44.7] 05/23/2021 Left shoulder pain [M25.512] 07/11/2021 Lateral epicondylitis of left elbow [M77.12] 07/11/2021 Cardiomegaly [I51.7] 02/13/2022 Chronic bilateral thoracic back pain [M54.6, G8*07/18/2022 Rib pain on right side [R07.81] 07/18/2022 Somatic dysfunction of rib [M99.08] 07/18/2022 Somatic dysfunction of spine, thoracic [M99.02] 07/18/2022 Somatic dysfunction of spine, cervical [M99.01] 07/18/2022 F (more content not included)... [facility] CNPN Telephone (PODCCP) ----- SANDRA SCHMITZ ([id number]) 1945 [place] Date Time Provider Department 11/28/23 MANDEEP HOUSER [facility] During your visit today, we recorded the following information about you: Concetta Dahl 11/28/2023 11:09 AM Signed Transitional Care Management (TCM) [facility] Monitoring Program Provider Action / FYI: N/A SUMMARY: Outreach type: FOLLOW-UP OUTREACH Discharge Network Status: In-Network Discharge Source of Patient: [facility] TCM Discharge Report Patient discharged from [facility] on 11/18/23. Admitted for Pre-syncope. Contact made with patient: Yes, for Follow-up Outreach Hi, my name is Concetta Dahl. I am calling from the [facility] on behalf of your Primary Care Provider, Mandeep Houser DO. I would like to follow-up with you after your hospital discharge to ensure you continue to improve now that you are home. May I ask you a few questions related to your hospital stay and well-being? Yes Contact with patient post discharge, spoke to patient. Patient identified by name and . Symptoms: Do you feel your health is BETTER, WORSE, or the SAME since leaving the hospital? Better Action Taken: Patient indicated symptoms are better or same, no action required. Hospital Follow-Up Appointment: I would like to help you schedule a hospital follow-up visit with your Primary Care Provider (PCP). This is a great way for you to connect with your provider to ensure you have safely transitioned home. If you are agreeable, I will provide you with the Appointment Center phone number to speak with a java oracle developer who can assist you with that appointment. This will give you an opportunity to ask any questions or address any concerns you may have with your Primary Care Provider. [Inform the patient that if they have any questions or concerns prior to that appointment, to call their PCP's office right away.] Action Taken: No action required, patient already has an appointment scheduled. Concetta Dahl November 28, 2023 11:09 AM Allergies As of Date: 11/28/2023 Noted Allergy Reaction EMILIO INHIBITORS 05/03/2020 5 - Intolerance Comments: Short of breath, symptoms of heart failure BETA-BLOCKERS (BETA-ADRENERGIC BL*05/03/2020 5 - Intolerance Comments: Short of breath, symptoms of heart failure AUGMENTIN (AMOXICILLIN-POT CLAVUL*01/23/2013 8 - GI Upset CODEINE 10/24/2012 1 - Mental Status Change Comments: Patient felt like she was made out of lead LIPITOR (ATORVASTATIN) 05/05/2020 17 - Myalgia Comments: Muscle aches SULFA (SULFONAMIDE ANTIBIOTICS) 04/28/2020 5 - Intolerance AMLODIPINE 04/28/2020 5 - Intolerance Comments: lightheaded Date Reviewed: 11/15/2023 Reviewed by: Linda Ochoa LPN - Fully Assessed Reason for Visit: Transition Of Care [4074] Prescriptions as of 11/28/2023 - aluminum-magnesium hydroxide-simethicone 200-200-20 mg/5 mL suspension Take 30 mL by mouth every 6 hours as needed. - dicyclomine (BENTYL) 10 mg capsule Take 1 capsule by mouth three times a day as needed (abdominal pain) for up to 20 doses. - simethicone, chewable (MYLICON) 80 mg chewable tablet Take 2 tablets by mouth as directed. As needed after meals for pain /gas - levothyroxine (LEVOXYL) 100 mcg tablet Take 1 tablet by mouth daily before breakfast. - losartan (COZAAR) 25 mg tablet Take 1 tablet by mouth once daily. - furosemide (LASIX) 20 mg tablet Take 1 tablet by mouth once daily. - metoprolol succinate ER (TOPROL XL) 25 mg 24 hr tablet Take 1 tablet by mouth daily at bedtime. - acetaminophen (TYLENOL) 500 mg tablet Take 2 tablets by mouth every 8 hours as needed for pain. - cyanocobalamin (VITAMIN B-12) 1,000 mcg tab Take 1 tablet by mouth once daily. - Cholecalciferol, Vitamin D3, 50 mcg (2,000 unit) cap Take 2 capsules by mouth once daily. - aspirin, enteric coated (ECOTRIN LOW STRENGTH) 81 mg EC tablet Take 1 tablet by mouth once daily. Facility-Administered Medications as of 11/28/2023 - perflutren lipid microspheres 1.3 mL in NaCl (PF) 0.9% 10 mL injection (DEFINITY) - sodium chloride 0.9 % (flush) 10 mL (BD POSIFLUSH) Problem List As Of Date 11/28/2023 Noted Resolved IBS (irritable bowel syndrome) [K58.9] 01/23/2013 Palpitations [R00.2] 12/16/2014 Obesity, Class I, BMI 30-34.9 [E66.9] 03/10/2020 Shortness of breath [R06.02] 05/03/2020 06/14/2020 Acute on chronic systolic CHF (congestive heart*05/03/2020 Homozygous Factor V Leiden mutation (HCC) [D68.*05/03/2020 Hypothyroidism [E03.9] 01/24/2018 Chest pain [R07.9] 05/03/2020 06/14/2020 Post-operative state [Z98.890] 05/24/2020 06/14/2020 Rectocele [N81.6] 05/25/2020 Cystocele, midline [N81.11] 05/25/2020 Aspiration pneumonia (HCC) [J69.0] 05/30/2020 09/22/2020 Acute acalculous cholecystitis [K81.0] 05/30/2020 Primary hypertension [I10] 06/14/2020 Acute idiopathic gout involv (more content not included)... Normal [facility] Jayna 11-23-2023 TIMN Telephone (PODCCP) ----- SANDRA SCHMITZ ([id number]) 1945 [address]* Date Time Provider Department 11/23/23 ROJAS PRAKASH PODCCP During your visit today, we recorded the following information about you: Rojas rPakash RN 11/23/2023 1:30 PM Signed Transitional Care Management (TCM) [facility] Monitoring [facility] Provider Action / FYI: na SUMMARY: Outreach type: INITIAL OUTREACH Discharge Network Status: In-Network Discharge Source of Patient: [facility] TCM Discharge Report Patient discharged from [facility] on 11.18.23. Admitted for Pre-syncope . Contact made with patient: No - next outreach attempt will be on next . Rojas Prakash RN November 23, 2023 1:29 PM Allergies As of Date: 11/23/2023 Noted Allergy Reaction EMILIO INHIBITORS 05/03/2020 5 - Intolerance Comments: Short of breath, symptoms of heart failure BETA-BLOCKERS (BETA-ADRENERGIC BL*05/03/2020 5 - Intolerance Comments: Short of breath, symptoms of heart failure AUGMENTIN (AMOXICILLIN-POT CLAVUL*01/23/2013 8 - GI Upset CODEINE 10/24/2012 1 - Mental Status Change Comments: Patient felt like she was made out of lead LIPITOR (ATORVASTATIN) 05/05/2020 17 - Myalgia Comments: Muscle aches SULFA (SULFONAMIDE ANTIBIOTICS) 04/28/2020 5 - Intolerance AMLODIPINE 04/28/2020 5 - Intolerance Comments: lightheaded Date Reviewed: 11/15/2023 Reviewed by: Linda Ochoa LPN - Fully Assessed Reason for Visit: Transition Of Care [4074] Prescriptions as of 11/23/2023 - aluminum-magnesium hydroxide-simethicone 200-200-20 mg/5 mL suspension Take 30 mL by mouth every 6 hours as needed. - dicyclomine (BENTYL) 10 mg capsule Take 1 capsule by mouth three times a day as needed (abdominal pain) for up to 20 doses. - simethicone, chewable (MYLICON) 80 mg chewable tablet Take 2 tablets by mouth as directed. As needed after meals for pain /gas - levothyroxine (LEVOXYL) 100 mcg tablet Take 1 tablet by mouth daily before breakfast. - losartan (COZAAR) 25 mg tablet Take 1 tablet by mouth once daily. - furosemide (LASIX) 20 mg tablet Take 1 tablet by mouth once daily. - metoprolol succinate ER (TOPROL XL) 25 mg 24 hr tablet Take 1 tablet by mouth daily at bedtime. - acetaminophen (TYLENOL) 500 mg tablet Take 2 tablets by mouth every 8 hours as needed for pain. - cyanocobalamin (VITAMIN B-12) 1,000 mcg tab Take 1 tablet by mouth once daily. - Cholecalciferol, Vitamin D3, 50 mcg (2,000 unit) cap Take 2 capsules by mouth once daily. - aspirin, enteric coated (ECOTRIN LOW STRENGTH) 81 mg EC tablet Take 1 tablet by mouth once daily. Facility-Administered Medications as of 11/23/2023 - perflutren lipid microspheres 1.3 mL in NaCl (PF) 0.9% 10 mL injection (DEFINITY) - sodium chloride 0.9 % (flush) 10 mL (BD POSIFLUSH) Problem List As Of Date 11/23/2023 Noted Resolved IBS (irritable bowel syndrome) [K58.9] 01/23/2013 Palpitations [R00.2] 12/16/2014 Obesity, Class I, BMI 30-34.9 [E66.9] 03/10/2020 Shortness of breath [R06.02] 05/03/2020 06/14/2020 Acute on chronic systolic CHF (congestive heart*05/03/2020 Homozygous Factor V Leiden mutation (HCC) [D68.*05/03/2020 Hypothyroidism [E03.9] 01/24/2018 Chest pain [R07.9] 05/03/2020 06/14/2020 Post-operative state [Z98.890] 05/24/2020 06/14/2020 Rectocele [N81.6] 05/25/2020 Cystocele, midline [N81.11] 05/25/2020 Aspiration pneumonia (HCC) [J69.0] 05/30/2020 09/22/2020 Acute acalculous cholecystitis [K81.0] 05/30/2020 Primary hypertension [I10] 06/14/2020 Acute idiopathic gout involving toe of left cristal*09/22/2020 Diverticulitis [K57.92] 09/29/2020 Hypokalemia [E87.6] 09/29/2020 Hospital discharge follow-up [Z09] 12/06/2020 Tubular adenoma of colon [D12.6] 12/09/2020 Mixed hyperlipidemia [E78.2] 12/29/2020 Chronic pain of right ankle [M25.571, G89.29] 12/29/2020 Kidney insufficiency [N28.9] 12/29/2020 Chronic systolic congestive heart failure (HCC)*02/14/2021 Valvular heart disease [I38] 04/06/2021 Colon cancer screening [Z12.11] 04/06/2021 Left bundle branch block [I44.7] 05/23/2021 Left shoulder pain [M25.512] 07/11/2021 Lateral epicondylitis of left elbow [M77.12] 07/11/2021 Cardiomegaly [I51.7] 02/13/2022 Chronic bilateral thoracic back pain [M54.6, G8*07/18/2022 Rib pain on right side [R07.81] 07/18/2022 Somatic dysfunction of rib [M99.08] 07/18/2022 Somatic dysfunction of spine, thoracic [M99.02] 07/18/2022 Somatic dysfunction of spine, cervical [M99.01] 07/18/2022 Foot drop, right [M21.371] 08/02/2022 Arthrosis of ankle, right [M19.071] 08/02/2022 Coronary artery disease involving [place] lopez*08/02/2022 Vitamin D deficiency [E55.9] 08/02/2022 Somatic dysfunction of head region [M99.00] 08/10/2022 Chronic neck pain [M54.2, G89.29] 08/24/2022 Chronic bronchitis (HCC) [J42] 09/11/2022 SVT (supraventricular tachycardia) (HCC) [I47.1*09/11/2022 Combined systol (more content not included)... Normal [facility] CBC panel Auto (Bld)on 11-17 Erythrocyte distribution width (RBC) [Ratio] 14.1 % Normal 11.5-15.0 [facility] Comment on above: Order Comment: Speci men Type: BLOOD SPECIMENOrdering Facility: [facility] Address: [address] [place] [address] [place] [address] Performed By: #### 5 5535-2 ####KO LABORATORYCLIA [id number] [address] Hematocrit (Bld) [Volume fraction] 39.4 % Normal 36.0-46.0 [facility] Comment on above: Order Comment: Speci men Type: BLOOD SPECIMENOrdering Facility: [facility] Address: [address] [place] [address] Performed By: #### 5 8410-2 ####OK LABORATORYCLIA [id number] [address] Hemoglobin (Bld) [Mass/Vol] 12.5 g/dL Normal 11.5-15.5 [facility] Comment on above: Order Comment: Speci men Type: BLOOD SPECIMENOrdering Facility: [facility] Address: [address] [place] [address] Performed By: #### 5 8410-2 ####KO LABORATORYCLIA [id number] [address] MCH (RBC) [Entitic mass] 28.9 pg Normal 26.0-34.0 [facility] Comment on above: Order Comment: Speci men Type: BLOOD SPECIMENOrdering Facility: [facility] Address: [address] [place] [address] Performed By: #### 5 8410-2 ####KO LABORATORYCLIA [id number] [address] MCHC (RBC) [Mass/Vol] 31.7 g/dL Normal 30.5-36.0 [facility] Comment on above: Order Comment: Speci men Type: BLOOD SPECIMENOrdering Facility: [facility] Address: [address] [place] [address] Performed By: #### 5 8410-2 ####KO LABORATORYCLIA [id number] [address] MCV (RBC) [Entitic vol] 91.2 fL Normal 80.0-100.0 [facility] Comment on above: Order Comment: Speci men Type: BLOOD SPECIMENOrdering Facility: [facility] Address: [address] [place] [address] Performed By: #### 5 8410-2 ####KO LABORATORYCLIA [id number] [place] [address] [place] Nucleated RBC (Bld) [#/Vol] 10*3/uL Normal <0.01 [facility] Comment on above: Order Comment: Speci men Type: BLOOD SPECIMENOrdering Facility: [facility] Address: [address] [place] [address] Performed By: #### 5 8410-2 ####KO LABORATORYCLIA [id number] [place] [address] [place] Platelet mean volume (Bld) [Entitic vol] 10.1 fL Normal 9.0-12.7 [facility] Comment on above: Order Comment: Speci men Type: BLOOD SPECIMENOrdering Facility: [facility] Address: [address] [place] [address] Performed By: #### 5 8410-2 ####KO LABORATORYCLIA [id number] [place] [address] [place] Platelets (Bld) [#/Vol] 345 10*3/uL Normal 150-400 [facility] Comment on above: Order Comment: Speci men Type: BLOOD SPECIMENOrdering Facility: [facility] Address: [address] [place] [address] Performed By: #### 5 8410-2 ####KO LABORATORYCLIA [id number] [place] [address] [place] RBC (Bld) [#/Vol] 4.32 10*6/uL Normal 3.90-5.20 [facility] Comment on above: Order Comment: Speci men Type: BLOOD SPECIMENOrdering Facility: [facility] Address: [address] [place] [address] Performed By: #### 5 8410-2 ####KO LABORATORYCLIA [id number] [place] [address] [place] WBC (Bld) [#/Vol] 11.76 10*3/uL High 3.70-11.00 [facility] Comment on above: Order Comment: Speci men Type: BLOOD SPECIMENOrdering Facility: [facility] Address: [address] [place] [id number] Performed By: #### 5 8410-2 ####[facility] LABORATORYCLIA [id number] [place] [address] [place] CNCOon 11-18-2023 CNCO Letter Text Normal [facility] CNDSon 11-18-2023 CNDS HNO ID: [id number] Author: REMINGTON CAI MD Service: Hospital Medicine Author Type: Physician Type: Discharge Summary Filed: 11/18/2023 12:48 Note Text: DISCHARGE SUMMARY PATIENT NAME: Sandra Schmitz Code Status: Full Code Highest Readmission Risk Score: 13 The 30 day readmissions risk score is derived from an internally validated risk model which evaluates patient level characteristics, utilization history, medication orders and lab results up until the day of discharge. Patients with a score of 40 or above are considered highest risk for readmission. Specific patient level drivers will be listed at the bottom of the summary. Admission Information Admission Information ADMIT DATE: 11/15/2023 DISCHARGE DATE: 11/18/2023 MY DOCTORS AND MEDICAL TEAM: My Main Hospital Doctor: Remington Cai MD Primary Care Provider: Mandeep Houser DO My Medical Team Members: Treatment Team: Attending Provider: Remington Cai MD Primary Service: , [facility] Consulting: Bentley Nolasco MD MY CONDITION AT DISCHARGE: Stable REASON I WAS IN THE HOSPITAL: Vagal faint SUMMARY OF WHAT HAPPENED WHILE I WAS IN THE HOSPITAL: Evaluated and it would seem he became dehydrated with some diarrhea and had abdominal cramps and had what is called a vagal reaction. With your prior problems of blood pooled in your feet and you nearly passed out. If this happens again you need to lay down and elevate your feet higher than your heart. You were given fluids and your weight came back to what appears to be normal and stayed stable. The cramping in part could be irritable bowel agitated with by some problems because of dehydration to start with. OTHER PROBLEMS/DIAGNOSIS: Principal Problem: Pre-syncope Active Problems: Primary hypertension Chronic systolic congestive heart failure (HCC) Nonischemic cardiomyopathy (HCC) Hypothyroidism IBS (irritable bowel syndrome) Mixed hyperlipidemia Resolved Problems: MAYCOL (acute kidney injury) (HCC) OPERATIONS PERFORMED WHILE IN THE HOSPITAL: None IMPORTANT TEST/PROCEDURES: No procedures performed TEST RESULTS NOT AVAILABLE AT THIS TIME: No pending results Discharge Disposition Discharge Disposition: Home With Self Care Activity When You Leave the Hospital Resume pre-hospital activity Gradually increase as tolerated Diet Instructions Resume your pre-hospital diet For Pain When You Leave the Hospital Use acetaminophen (Tylenol) as recommended on the bottle Follow Up Appointments Follow-Up Appointment When: In 2 weeks Patient/Parents to call for appointment?: Scheduled Mandeep Houser, [address] [facility] [place] [address] PCP Requested Referral Follow-Up Appointment When: In 2 weeks Bentley Nolasco MD [phone] [facility] [address] [facility] [address] PCP Requested Referral Follow-Up Appointment When: In 2 weeks Angel Castro DO [phone] [address] [place] [address] PCP Requested Referral Additional Provider to Provider Information: ASSESSMENT/PLAN Reason for Admission: Presyncope 1. Pre-syncope Dehydration with abdominal cramps and then vagal episode 2. Nonischemic cardiomyopathy (HCC) POA: Yes No sign of volume overload 3. IBS (irritable bowel syndrome) POA: Yes Stable now 4. Hypothyroidism POA: Yes Continue current dosage 5. Primary hypertension POA: Yes Continue current medications 6. Mixed hyperlipidemia POA: Yes Continue current medications 7. Chronic systolic congestive heart failure (HCC) POA: Yes He has some diastolic dysfunction was dehydrated and will continue hydration for her acute kidney injury 8. MAYCOL (acute kidney injury) (HCC) resolved Baseline BUN in the 30s baseline creatinine around 1.0 or lower OBJECTIVE EK11/15/2023 atrial sensed ventricular paced rhythm with what appears to be biventricular pacing with a right bundle and left anterior hemiblock pattern and poor R wave progression QRS complexes are very similar to 11/01/2023 ECHOCARDIOGRAM: 07/12/2023 The left ventricle is severely dilated. Left ventricular systolic function is severely decreased. EF = 26 ? 5% (2D biplane). Grade II left ventricular diastolic dysfunction. - The right ventricle is normal in size. Right ventricular systolic function is normal. - There is mild to moderate (1+ - 2+) mitral valve regurgitation. - There is mild (1+) tricuspid valve regurgitation. - There is mild (1+) aortic valve regurgitation. - There is mild to moderate (1+ - 2+) pulmonic valve regurgitation. - Wall motion abnormalities as above. Recent Labs 11/15/232003 VPC2 46 VPO2C 42 VBE 2 BICARB 27 LACT 1.6 Recent Labs 11/15/232003 KWB 3.8 Recent Labs 11/18/23 0441 11/17/23 0438 11/16/23 0423 MCV 91.2 92.2 91.4 MCH 28.9 29.1 28.9 MPV 10.1 9.8 10.1 Recent Labs 11/18/23 0441 070 (more content not included)... 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 Labs with MAYCOL, leukocytosis. [place] to be vasovagal episode. A GI evaluation has been requested for abdominal pain. Since admission has noted worsening bloating with lower abdominal discomfort, and flatulence Notes intermittent hx of this for the last several years Does use Pepto or Tums which seems to help Intermittent, excessive flatulence Had mild nausea with pre-syncopal episode which has since resolved. No vomiting Hx IBS and notes episodes of abdominal cramping and diarrhea Last BM this am which was soft No BRB, melena No heartburn but frequent eructation No dysphagia, odynophagia No weight changes Is on tapering dose of Prednisone for back pain Is on 81 mg aspirin daily Was having a BM when had episode of pre-syncope Does not see GI as outpatient ALLERGIES: ALLERGIES Allergen Reactions Emilio Inhibitors Intolerance Short of breath, symptoms of heart failure Beta-Blockers (Beta* Intolerance Short of breath, symptoms of heart failure Augmentin [Amoxicil* GI Upset Codeine Mental Status Change Patient felt like she was made out of lead Lipitor [Atorvastat* Myalgia Muscle aches Sulfa (Sulfonamide * Intolerance Amlodipine Intolerance lightheaded PAST MEDICAL HISTORY: PAST MEDICAL HISTORY Diagnosis Date Acute acalculous cholecystitis 05/30/2020 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 09/22/2020 Acute on chronic systolic CHF (congestive heart failure) ([facility]) 05/03/2020 Aspiration pneumonia ([facility]) 05/30/2020 Chest pain 05/03/2020 Chest pressure 01/23/2013 Chronic diastolic congestive heart failure ([facility]) 02/14/2021 Clostridium difficile diarrhea 09/28/2020 Complete uterovaginal prolapse Cystocele, midline Essential hypertension 06/14/2020 Homozygous Factor V Leiden mutation ([facility]) 05/03/2020 Hypothyroidism IBS (irritable bowel syndrome) 01/23/2013 Palpitation CHRONIC Post-operative state 05/24/2020 Rectocele 05/25/2020 Shortness of breath 05/03/2020 Status post laparoscopic hysterectomy 05/30/2020 Tubular adenoma of colon 12/09/2020 Uterine prolapse 05/03/2020 PAST SURGICAL HISTORY: PAST SURGICAL HISTORY Procedure Laterality Date COLONOSCOPY 01/07/2015 COLONOSCOPY 12/05/2021 repeat in 5 years COLONOSCOPY GEN ANES 12/06/2009 X3 LAST ONE IN 2009 EGD 11/08/2012 EGD 12/05/2021 PAST SURGICAL HISTORY OF 05/14/1999 left foot bunionectomy w/screws PAST SURGICAL HISTORY OF 05/14/1981 ectopic w/tube removal PAST SURGICAL HISTORY OF 2009 CYST REMOVED FROM UTERUS PAST SURGICAL HISTORY OF 05/24/2020 TVH, partial colpectomy, anterior colporrhaphy, Dennis transobturator midurethral sling, cystourethroscopy, rectocele repair with perineorrhaphy, laparoscopic lysis of adhesions and excision of bilateral adnexal structures PAST SURGICAL HISTORY OF 09/07/2020 Laparoscopic cholecystectomy with intraoperative cholangiograms. Dr. Ragsdale MEDICATIONS: Prior to Admission Medications: perflutren lipid microspheres 1.3 mL in NaCl (PF) 0.9% 10 mL injection (DEFINITY), , INTRAVENOUS, DIRECTED PRN, Santo Oneill MD sodium chloride 0.9 % (flush) 10 mL (BD POSIFLUSH), 10 mL, INTRAVENOUS, DIRECTED PRN, Santo Oneill MD [] predniSONE (DELTASONE) 10 mg tablet, Take 4 tabs daily for 3 days, then 2 tabs daily for 3 days, then 1 tab daily for 3 days with food. (Patient taking differently: Take 4 tabs daily for 3 days, then 2 tabs daily for 3 days, then 1 tab daily for 3 days with food. Complied today), Disp: 21 tablet, Rfl: 0, 11/15/2023 at 1200 levothyroxine (LEVOXYL) 100 mcg tablet, Take 1 tablet by mouth daily before breakfast., Disp: 90 tablet, Rfl: 1, 11/15/2023 at 0730 losartan (COZAAR) 25 mg tablet, Take 1 tablet by mouth once daily., Disp: 30 tablet, Rfl: 3, 11/15/2023 at 0900 furosemide (LASIX) 20 mg tablet, Take 1 tablet by mouth once daily., Disp: 90 tablet, Rfl: 1, 11/15/2023 at 0900 metoprolol succinate ER (TOPROL XL) 25 mg 24 hr tablet, Take 1 tablet by mouth daily at bedtime., Disp: 90 tablet, Rfl: 3, 11/14/2023 at 2100 cyanocobalamin (VITAMIN B-12) 1,000 mcg tab, Take 1 tablet by mouth once daily., Disp: 30 tablet, Rfl: 2, 11/14/2023 at 1600 Cholecalciferol, Vitamin D3, 50 mcg (2,000 unit) cap, Take 2 capsules by mouth once daily., (more content not included)... Normal [facility] CRP SerPl-mCncon 11-18-2023 CRP [Mass/Vol] 1.2 mg/dL High <0.9 [facility] Comment on above: Order Comment: Speci men Type: BLOOD SPECIMENOrdering Facility: [facility] Address: [address] [place] [address] Performed By: #### 1 9123-9, 3016-3, 99337-6, 1987-09 ####KO LABORATORYCLIA [id number] [place] [address] [place] Comprehensive metabolic 2000 panelon 11-18-2023 Albumin [Mass/Vol] 3.8 g/dL Low 3.9-4.9 [facility] Comment on above: Order Comment: Speci men Type: BLOOD SPECIMENOrdering Facility: [facility] Address: [address] [place] [address] Performed By: #### 1 9123-9, 3015-3, , 1987-09 ####[facility] LABORATORYCLIA [id number] [place] [address] [place] ALP [Catalytic activity/Vol] 63 U/L Normal 34-123 [facility] Comment on above: Order Comment: Speci men Type: BLOOD SPECIMENOrdering Facility: [facility] Address: [address] [place] [address] Performed By: #### 1 9123-9, 3, , 1987-09 ####[facility] LABORATORYCLIA [id number] [place] [address] [place] ALT [Catalytic activity/Vol] 14 U/L Normal 7-38 [facility] Comment on above: Order Comment: Speci men Type: BLOOD SPECIMENOrdering Facility: [facility] Address: [address] [place] [address] Performed By: #### 1 9123-9, 3, , 1987-09 ####[facility] LABORATORYCLIA [id number] [place] [id number] [place] Anion gap [Moles/Vol] 7 mmol/L Low 8-15 [facility] Comment on above: Order Comment: Speci men Type: BLOOD SPECIMENOrdering Facility: [facility] Address: [address] [place] [address] Performed By: #### 1 9123-9, 3, , 1987-09 ####KO LABORATORYCLIA [id number] [place] [address] [place] AST [Catalytic activity/Vol] 15 U/L Normal 13-35 [facility] Comment on above: Order Comment: Speci men Type: BLOOD SPECIMENOrdering Facility: [facility] Address: [address] [place] [address] Performed By: #### 1 9123-9, 3, , 1987-09 ####KO LABORATORYCLIA [id number] [place] [address] [place] Bilirubin [Mass/Vol] 0.5 mg/dL Normal 0.2-1.3 [facility] Comment on above: Order Comment: Speci men Type: BLOOD SPECIMENOrdering Facility: [facility] Address: [facility] [address] Performed By: #### 1 9123-9, 3015-07, , 1987-09 ####[facility] LABORATORYCLIA [id number] [place] [address] [place] Calcium [Mass/Vol] 9.1 mg/dL Normal 8.5-10.2 [facility] Comment on above: Order Comment: Speci men Type: BLOOD SPECIMENOrdering Facility: [facility] Address: [facility] [address] [place] [id number] Performed By: #### 1 9123-9, 3015-07, , 1987-09 ####[facility] LABORATORYCLIA [id number] [place] [address] [place] Chloride [Moles/Vol] 104 mmol/L Normal 98-107 [facility] Comment on above: Order Comment: Speci men Type: BLOOD SPECIMENOrdering Facility: [facility] Address: [address] [place] [id number] Performed By: #### 1 9123-9, 3, , 1987-09 ####KO LABORATORYCLIA [id number] [place] [address] [place] CO2 [Moles/Vol] 29 mmol/L Normal 22-30 [facility] Comment on above: Order Comment: Speci men Type: BLOOD SPECIMENOrdering Facility: [facility] Address: [facility] [place] [address] Performed By: #### 1 9123-9, 6-3, , 1987-09 ####[facility] LABORATORYCLIA [id number] [place] [address] [place] [facility] Creatinine [Mass/Vol] 0.96 mg/dL Normal 0.58-0.96 [facility] Comment on above: Order Comment: Lenard jesus Type: BLOOD SPECIMENOrdering Facility: [facility] Address: [address] [place] [address] Performed By: #### 1 9123-9, 3015-3, , 1987-09 ####[facility] LABORATORYCLIA [id number] [place] [id number] [facility] Creatinine and Glomerular filtration rate.predicted panel (S/P/Bld) 61 mL/min/1.73m??? Normal >=60 [facility] Comment on above: Order Comment: [facility] Type: BLOOD SPECIMENOrdering Facility: [facility] Address: [address] [place] [address] Result Comment: Aaron mated Glomerular Filtration Rate (eGFR) is calculated using the 2020 CKD-EPI creatinine equation. This equation utilizes serum creatinine, sex, and age as parameters. The creatinine assay has traceable calibration to isotope dilution-mass spectrometry. Refer to KDIGO guidelines for clinical interpretation. In patients with unstable renal function, e.g. those with acute kidney injury, the eGFR may not accurately reflect actual GFR. Performed By: #### 1 9123-9, 3015-3, , 1987-09 ####[facility] LABORATORYCLIA [id number] [place] [id number] [place] [facility] Glucose [Mass/Vol] 81 mg/dL Normal 74-99 [facility] Comment on above: Order Comment: [facility] Type: BLOOD SPECIMENOrdering Facility: [facility] Address: [address] [place] [address] Result Comment: The [place] [employer] (ADA) provides guidance for cutoff values for fasting glucose and random glucose. The ADA defines fasting as no caloric intake for at least 8 hours. Fasting plasma glucose results between 100 to 125 mg/dL indicate increased risk for diabetes (prediabetes). Fasting plasma glucose results greater than or equal to 126 mg/dL meet the criteria for diagnosis of diabetes. In the absence of unequivocal hyperglycemia, results should be confirmed by repeat testing. In a patient with classic symptoms of hyperglycemia or hyperglycemic crisis, random plasma glucose results greater than or equal to 200 mg/dL meet the criteria for diagnosis of diabetes. Reference: Standards of Medical Care in Diabetes 2016, [place] [employer]. Diabetes Care. 2016.39(Suppl 1). Performed By: #### 1 9123-9, 3, , 1987-09 ####KO LABORATORYCLIA [id number] [place] [address] [place] Potassium [Moles/Vol] 4.1 mmol/L Normal 3.7-5.1 [facility] Comment on above: Order Comment: Lenard jesus Type: BLOOD SPECIMENOrdering Facility: [facility] Address: [address] [place] [address] Performed By: #### 1 91239, 3015-07, , 1987-09 ####KO LABORATORYCLIA [id number] [place] [address] [place] Protein [Mass/Vol] 6.4 g/dL Normal 6.3-8.0 [facility] Comment on above: Order Comment: Lenard jseus Type: BLOOD SPECIMENOrdering Facility: [facility] Address: [address] [place] [address] Performed By: #### 1 9123-9, 3015-07, , 1987-09 ####KO LABORATORYCLIA [id number] [place] [id number] [place] Sodium [Moles/Vol] 140 mmol/L Normal 136-144 [facility] Comment on above: Order Comment: Lenard jesus Type: BLOOD SPECIMENOrdering Facility: [facility] Address: [address] [place] [address] Performed By: #### 1 9123-9, 3015-07, , 1987-09 ####KO LABORATORYCLIA [id number] [place] [address] [place] Urea nitrogen [Mass/Vol] 30 mg/dL High 7-21 [facility] Comment on above: Order Comment: Speci men Type: BLOOD SPECIMENOrdering Facility: [facility] Address: [address] [place] [address] [place] [id number] Performed By: #### 1 9123-9, 3, , 1987-09 ####KO LABORATORYCLIA [id number] [place] [address] [place] Magnesium SerPl-mCncon 11-17 Magnesium [Mass/Vol] 1.9 mg/dL Normal 1.7-2.3 [facility] Comment on above: Order Comment: Speci men Type: BLOOD SPECIMENOrdering Facility: [facility] Address: [address] [place] [address] Performed By: #### 1 9123-9, 3015-07, , 1987-09 ####[facility] LABORATORYCLIA [id number] [place] [address] [place] TSH SerPl-aCncon 11-18-2023 TSH Qn 3.520 m[IU]/L Normal 0.270-4.200 [facility] Comment on above: Order Comment: Speci men Type: BLOOD SPECIMENOrdering Facility: [facility] Address: [address] [place] [address] [place] [address] Performed By: #### 1 9123-9, 3015-07, , 1987-09 ####KO LABORATORYCLIA [id number] [place] [address] [place] CBC panel Auto (Bld)on 11-16 Erythrocyte distribution width (RBC) [Ratio] 14.2 % Normal 11.5-15.0 [facility] Comment on above: Order Comment: Speci men Type: BLOOD SPECIMENOrdering Facility: [facility] Address: [address] [place] [address] Performed By: #### 5 8410-2 ####NEW[facility] LABORATORYCLIA [id number] [address] [place] Hematocrit (Bld) [Volume fraction] 36.8 % Normal 36.0-46.0 [facility] Comment on above: Order Comment: Speci men Type: BLOOD SPECIMENOrdering Facility: [facility] Address: [address] [place] [address] Performed By: #### 5 8410-2 ####KO LABORATORYCLIA [id number] [address] Hemoglobin (Bld) [Mass/Vol] 11.6 g/dL Normal 11.5-15.5 [facility] Comment on above: Order Comment: Speci men Type: BLOOD SPECIMENOrdering Facility: [facility] Address: [address] [place] [address] Performed By: #### 5 8410-2 ####KO LABORATORYCLIA [id number] [address] MCH (RBC) [Entitic mass] 29.1 pg Normal 26.0-34.0 [facility] Comment on above: Order Comment: Speci men Type: BLOOD SPECIMENOrdering Facility: [facility] Address: [address] [place] [address] Performed By: #### 5 8410-2 ####KO LABORATORYCLIA [id number] [address] MCHC (RBC) [Mass/Vol] 31.5 g/dL Normal 30.5-36.0 [facility] Comment on above: Order Comment: Speci men Type: BLOOD SPECIMENOrdering Facility: [facility] Address: [address] [place] [address] Performed By: #### 5 8410-2 ####KO LABORATORYCLIA [id number] [address] MCV (RBC) [Entitic vol] 92.2 fL Normal 80.0-100.0 [facility] Comment on above: Order Comment: Speci men Type: BLOOD SPECIMENOrdering Facility: [facility] Address: [address] [place] [address] Performed By: #### 5 8410-2 ####KO LABORATORYCLIA [id number] [address] Nucleated RBC (Bld) [#/Vol] 10*3/uL Normal <0.01 [facility] Comment on above: Order Comment: Speci men Type: BLOOD SPECIMENOrdering Facility: [facility] Address: [address] [place] [address] Performed By: #### 5 8410-2 ####KO LABORATORYCLIA [id number] [place] [address] [place] Platelet mean volume (Bld) [Entitic vol] 9.8 fL Normal 9.0-12.7 [facility] Comment on above: Order Comment: Speci men Type: BLOOD SPECIMENOrdering Facility: [facility] Address: [address] [place] [address] Performed By: #### 5 8410-2 ####KO LABORATORYCLIA [id number] [place] [address] [place] Platelets (Bld) [#/Vol] 321 10*3/uL Normal 150-400 [facility] Comment on above: Order Comment: Speci men Type: BLOOD SPECIMENOrdering Facility: [facility] Address: [address] [place] [address] Performed By: #### 5 8410-2 ####KO LABORATORYCLIA [id number] [place] [address] [place] RBC (Bld) [#/Vol] 3.99 10*6/uL Normal 3.90-5.20 [facility] Comment on above: Order Comment: Speci men Type: BLOOD SPECIMENOrdering Facility: [facility] Address: [address] [place] [address] Performed By: #### 5 8410-2 ####KO LABORATORYCLIA [id number] [place] [address] [place] WBC (Bld) [#/Vol] 9.28 10*3/uL Normal 3.70-11.00 [facility] Comment on above: Order Comment: Speci men Type: BLOOD SPECIMENOrdering Facility: [facility] Address: [address] [place] [address] Performed By: #### 5 8410-2 ####KO LABORATORYCLIA [id number] [place] [address] [place] Comprehensive metabolic 2000 panelon 11-17-2023 Albumin [Mass/Vol] 3.5 g/dL Low 3.9-4.9 [facility] Comment on above: Order Comment: Speci men Type: BLOOD SPECIMENOrdering Facility: [facility] Address: [address] [place] [address] Performed By: #### 2 432-8, ####KO LABORATORYCLIA [id number] [place] [address] [place] ALP [Catalytic activity/Vol] 56 U/L Normal 34-123 [facility] Comment on above: Order Comment: Speci men Type: BLOOD SPECIMENOrdering Facility: [facility] Address: [address] [place] [address] Performed By: #### 2 4322-8, ####KO LABORATORYCLIA [id number] [address] [place] ALT [Catalytic activity/Vol] 16 U/L Normal 7-38 [facility] Comment on above: Order Comment: Speci men Type: BLOOD SPECIMENOrdering Facility: [facility] Address: [address] [place] [address] Performed By: #### 2 8, ####KO LABORATORYCLIA [id number] [address] [place] Anion gap [Moles/Vol] 5 mmol/L Low 8-15 [facility] Comment on above: Order Comment: Speci men Type: BLOOD SPECIMENOrdering Facility: [facility] Address: [address] [place] [address] Performed By: #### 2 4322-8, ####KO LABORATORYCLIA [id number] [place] [id number] [place] AST [Catalytic activity/Vol] 16 U/L Normal 13-35 [facility] Comment on above: Order Comment: Speci men Type: BLOOD SPECIMENOrdering Facility: [facility] Address: [address] [place] [address] Performed By: #### 2 4322-8, 49791-1 ####KO LABORATORYCLIA [id number] [place] [address] [place] Bilirubin [Mass/Vol] 0.4 mg/dL Normal 0.2-1.3 [facility] Comment on above: Order Comment: Speci men Type: BLOOD SPECIMENOrdering Facility: [facility] Address: [address] [place] [address] Performed By: #### 2 4323-8, ####KO LABORATORYCLIA [id number] [place] [address] [place] Calcium [Mass/Vol] 8.5 mg/dL Normal 8.5-10.2 [facility] Comment on above: Order Comment: Speci men Type: BLOOD SPECIMENOrdering Facility: [facility] Address: [address] [place] [address] Performed By: #### 2 4323-8, ####KO LABORATORYCLIA [id number] [place] [address] [place] Chloride [Moles/Vol] 110 mmol/L High 98-107 [facility] Comment on above: Order Comment: Speci men Type: BLOOD SPECIMENOrdering Facility: [facility] Address: [address] [place] [address] Performed By: #### 2 4323-8, ####KO LABORATORYCLIA [id number] [place] [address] [place] CO2 [Moles/Vol] 28 mmol/L Normal 22-30 [facility] Comment on above: Order Comment: Speci men Type: BLOOD SPECIMENOrdering Facility: [facility] Address: [address] [place] [address] Performed By: #### 2 4323-8, ####KO LABORATORYCLIA [id number] [place] [address] [place] Creatinine [Mass/Vol] 1.05 mg/dL High 0.58-0.96 [facility] Comment on above: Order Comment: Speci men Type: BLOOD SPECIMENOrdering Facility: [facility] Address: [address] [place] [address] Performed By: #### 2 4323-8, ####KO LABORATORYCLIA [id number] [place] [address] [place] Creatinine and Glomerular filtration rate.predicted panel (S/P/Bld) 55 mL/min/1.73m??? Low >=60 [facility] Comment on above: Order Comment: Lenard jesus Type: BLOOD SPECIMENOrdering Facility: [facility] Address: [address] [place] [address] Result Comment: Aaron mated Glomerular Filtration Rate (eGFR) is calculated using the 2020 CKD-EPI creatinine equation. This equation utilizes serum creatinine, sex, and age as parameters. The creatinine assay has traceable calibration to isotope dilution-mass spectrometry. Refer to KDIGO guidelines for clinical interpretation. In patients with unstable renal function, e.g. those with acute kidney injury, the eGFR may not accurately reflect actual GFR. Performed By: #### 2 4323-8, ####KO LABORATORYCLIA [id number] [place] [id number] [place] Glucose [Mass/Vol] 79 mg/dL Normal 74-99 [facility] Comment on above: Order Comment: Lenard jesus Type: BLOOD SPECIMENOrdering Facility: [facility] Address: [address] [place] [address] Result Comment: The [place] [employer] (ADA) provides guidance for cutoff values for fasting glucose and random glucose. The ADA defines fasting as no caloric intake for at least 8 hours. Fasting plasma glucose results between 100 to 125 mg/dL indicate increased risk for diabetes (prediabetes). Fasting plasma glucose results greater than or equal to 126 mg/dL meet the criteria for diagnosis of diabetes. In the absence of unequivocal hyperglycemia, results should be confirmed by repeat testing. In a patient with classic symptoms of hyperglycemia or hyperglycemic crisis, random plasma glucose results greater than or equal to 200 mg/dL meet the criteria for diagnosis of diabetes. Reference: Standards of Medical Care in Diabetes 2016, [place] [employer]. Diabetes Care. 2016.39(Suppl 1). Performed By: #### 2 4323-8, ####KO LABORATORYCLIA [id number] [place] [address] [place] Potassium [Moles/Vol] 4.8 mmol/L Normal 3.7-5.1 [facility] Comment on above: Order Comment: Speci men Type: BLOOD SPECIMENOrdering Facility: [facility] Address: [address] [place] [id number] Performed By: #### 2 4323-8, ####KO LABORATORYCLIA [id number] [place] [address] [place] Protein [Mass/Vol] 6.0 g/dL Low 6.3-8.0 [facility] Comment on above: Order Comment: Speci men Type: BLOOD SPECIMENOrdering Facility: [facility] Address: [address] [place] [address] [place] [address] Performed By: #### 2 432-8, ####KO LABORATORYCLIA [id number] [place] [address] [place] Sodium [Moles/Vol] 143 mmol/L Normal 136-144 [facility] Comment on above: Order Comment: Speci men Type: BLOOD SPECIMENOrdering Facility: [facility] Address: [address] [place] [address] Performed By: #### 2 4323-8, ####KO LABORATORYCLIA [id number] [place] [address] [place] Urea nitrogen [Mass/Vol] 34 mg/dL High 7-21 [facility] Comment on above: Order Comment: Speci men Type: BLOOD SPECIMENOrdering Facility: [facility] Address: [address] [place] [id number] Performed By: #### 2 4323-8, ####KO LABORATORYCLIA [id number] [place] [address] [place] Magnesium SerPl-mCncon 11-16 Magnesium [Mass/Vol] 2.0 mg/dL Normal 1.7-2.3 [facility] Comment on above: Order Comment: Speci men Type: BLOOD SPECIMENOrdering Facility: [facility] Address: [address] [place] [address] Performed By: #### 2 432-8, ####KO LABORATORYCLIA [id number] [address] CBC panel Auto (Bld)on 11-15 Erythrocyte distribution width (RBC) [Ratio] 14.3 % Normal 11.5-15.0 [facility] Comment on above: Order Comment: Speci men Type: BLOOD SPECIMENOrdering Facility: [facility] Address: [address] [place] [address] Performed By: #### 5 8410-2 ####KO LABORATORYCLIA [id number] [address] Hematocrit (Bld) [Volume fraction] 37.4 % Normal 36.0-46.0 [facility] Comment on above: Order Comment: Speci men Type: BLOOD SPECIMENOrdering Facility: [facility] Address: [address] [place] [address] Performed By: #### 5 8410-2 ####KO LABORATORYCLIA [id number] [address] Hemoglobin (Bld) [Mass/Vol] 11.8 g/dL Normal 11.5-15.5 [facility] Comment on above: Order Comment: Speci men Type: BLOOD SPECIMENOrdering Facility: [facility] Address: [address] [place] [address] Performed By: #### 5 8410-2 ####KO LABORATORYCLIA [id number] [address] MCH (RBC) [Entitic mass] 28.9 pg Normal 26.0-34.0 [facility] Comment on above: Order Comment: Speci men Type: BLOOD SPECIMENOrdering Facility: [facility] Address: [address] [place] [address] Performed By: #### 5 8410-2 ####KO LABORATORYCLIA [id number] [address] MCHC (RBC) [Mass/Vol] 31.6 g/dL Normal 30.5-36.0 [facility] Comment on above: Order Comment: Speci men Type: BLOOD SPECIMENOrdering Facility: [facility] Address: [address] [place] [address] Performed By: #### 5 8410-2 ####KO LABORATORYCLIA [id number] [address] [place] MCV (RBC) [Entitic vol] 91.4 fL Normal 80.0-100.0 [facility] Comment on above: Order Comment: Speci men Type: BLOOD SPECIMENOrdering Facility: [facility] Address: [address] [place] [address] Performed By: #### 5 8410-2 ####KO LABORATORYCLIA [id number] [address] Nucleated RBC (Bld) [#/Vol] 10*3/uL Normal <0.01 [facility] Comment on above: Order Comment: Speci men Type: BLOOD SPECIMENOrdering Facility: [facility] Address: [address] [place] [address] Performed By: #### 5 8410-2 ####KO LABORATORYCLIA [id number] [address] [place] Platelet mean volume (Bld) [Entitic vol] 10.1 fL Normal 9.0-12.7 [facility] Comment on above: Order Comment: Speci men Type: BLOOD SPECIMENOrdering Facility: [facility] Address: [address] [place] [address] Performed By: #### 5 8410-2 ####KO LABORATORYCLIA [id number] [address] [place] Platelets (Bld) [#/Vol] 356 10*3/uL Normal 150-400 [facility] Comment on above: Order Comment: Speci men Type: BLOOD SPECIMENOrdering Facility: [facility] Address: [address] [place] [address] Performed By: #### 5 8410-2 ####KO LABORATORYCLIA [id number] [place] [address] [facility] [place] RBC (Bld) [#/Vol] 4.09 10*6/uL Normal 3.90-5.20 [facility] Comment on above: Order Comment: Speci men Type: BLOOD SPECIMENOrdering Facility: [facility] Address: [address] [place] [address] Performed By: #### 5 8410-2 ####KO LABORATORYCLIA [id number] [place], [place] [id number] [place] [address] OF [facility] WBC (Bld) [#/Vol] 13.58 10*3/uL High 3.70-11.00 [facility] Comment on above: Order Comment: Speci men Type: BLOOD SPECIMENOrdering Facility: [facility] Address: [address] [place] [address] [place] [id number] Performed By: #### 5 8410-2 ####KO LABORATORYCLIA [id number] [address] Comprehensive metabolic 2000 panelon 11-16-2023 Albumin [Mass/Vol] 3.4 g/dL Low 3.9-4.9 [facility] Comment on above: Order Comment: Speci men Type: BLOOD SPECIMENOrdering Facility: [facility] Address: [address] [place], [place] [address] [id number] Performed By: #### 2 4323-8, ####KO LABORATORYCLIA [id number] [address] OF [facility] ALP [Catalytic activity/Vol] 58 U/L Normal 34-123 [facility] Comment on above: Order Comment: Speci men Type: BLOOD SPECIMENOrdering Facility: [facility] Address: [address] [place] [id number] Performed By: #### 2 4323-8, 72679-8 ####KO LABORATORYCLIA [id number] [place] [id number] [facility] ALT [Catalytic activity/Vol] 15 U/L Normal 7-38 [facility] Comment on above: Order Comment: Speci men Type: BLOOD SPECIMENOrdering Facility: [facility] Address: [address] [place] [id number] Performed By: #### 2 4323-8, 73713-6 ####KO LABORATORYCLIA [id number] [place] [id number] [facility] [place] Anion gap [Moles/Vol] 10 mmol/L Normal 8-15 [facility] Comment on above: Order Comment: Speci men Type: BLOOD SPECIMENOrdering Facility: [facility] Address: [address] [place] [address] Performed By: #### 2 4323-8, ####KO LABORATORYCLIA [id number] [address] [place] AST [Catalytic activity/Vol] 16 U/L Normal 13-35 [facility] Comment on above: Order Comment: Speci men Type: BLOOD SPECIMENOrdering Facility: [facility] Address: [address] [place], [place] [address], [place] [address] Performed By: #### 2 432-8, ####KO LABORATORYCLIA [id number] [address] [place] Bilirubin [Mass/Vol] 0.3 mg/dL Normal 0.2-1.3 [facility] Comment on above: Order Comment: Speci men Type: BLOOD SPECIMENOrdering Facility: [facility] Address: [address] [place] [address] Performed By: #### 2 8, ####KO LABORATORYCLIA [id number] [address] [place] Calcium [Mass/Vol] 8.6 mg/dL Normal 8.5-10.2 [facility] Comment on above: Order Comment: Speci men Type: BLOOD SPECIMENOrdering Facility: [facility] Address: [address] [place] [address] Performed By: #### 2 432-8, ####KO LABORATORYCLIA [id number] [place] [address] [place] Chloride [Moles/Vol] 105 mmol/L Normal 98-107 [facility] Comment on above: Order Comment: Speci men Type: BLOOD SPECIMENOrdering Facility: [facility] Address: [address] [place] [address] Performed By: #### 2 432-8, ####KO LABORATORYCLIA [id number] [place] [id number] [place] CO2 [Moles/Vol] 25 mmol/L Normal 22-30 [facility] Comment on above: Order Comment: Lenard jesus Type: BLOOD SPECIMENOrdering Facility: [facility] Address: [address] [place] [address] Performed By: #### 2 4323-8, ####KO LABORATORYCLIA [id number] [place] [address] [place] Creatinine [Mass/Vol] 1.28 mg/dL High 0.58-0.96 [facility] Comment on above: Order Comment: Speci men Type: BLOOD SPECIMENOrdering Facility: [facility] Address: [address] [place] [address] Performed By: #### 2 4323-8, ####KO LABORATORYCLIA [id number] [address] Creatinine and Glomerular filtration rate.predicted panel (S/P/Bld) 43 mL/min/1.73m??? Low >=60 [facility] Comment on above: Order Comment: Speci men Type: BLOOD SPECIMENOrdering Facility: [facility] Address: [address] [place] [address] Result Comment: Aaron mated Glomerular Filtration Rate (eGFR) is calculated using the 2020 CKD-EPI creatinine equation. This equation utilizes serum creatinine, sex, and age as parameters. The creatinine assay has traceable calibration to isotope dilution-mass spectrometry. Refer to KDIGO guidelines for clinical interpretation. In patients with unstable renal function, e.g. those with acute kidney injury, the eGFR may not accurately reflect actual GFR. Performed By: #### 2 4323-8, ####KO LABORATORYCLIA [id number] [place] [id number] [place] Glucose [Mass/Vol] 121 mg/dL High 74-99 [facility] Comment on above: Order Comment: Ernestinei edin Type: BLOOD SPECIMENOrdering Facility: [facility] Address: [address] [place] [address] Result Comment: The [place] [employer] (ADA) provides guidance for cutoff values for fasting glucose and random glucose. The ADA defines fasting as no caloric intake for at least 8 hours. Fasting plasma glucose results between 100 to 125 mg/dL indicate increased risk for diabetes (prediabetes). Fasting plasma glucose results greater than or equal to 126 mg/dL meet the criteria for diagnosis of diabetes. In the absence of unequivocal hyperglycemia, results should be confirmed by repeat testing. In a patient with classic symptoms of hyperglycemia or hyperglycemic crisis, random plasma glucose results greater than or equal to 200 mg/dL meet the criteria for diagnosis of diabetes. Reference: Standards of Medical Care in Diabetes 2016, [place] [employer]. Diabetes Care. 2016.39(Suppl 1). Performed By: #### 2 4328, ####KO LABORATORYCLIA [id number] [place] [address] [place] Potassium [Moles/Vol] 4.7 mmol/L Normal 3.7-5.1 [facility] Comment on above: Order Comment: Lenard jesus Type: BLOOD SPECIMENOrdering Facility: [facility] Address: [address] [place] [address] Performed By: #### 2 4322-12, ####KO LABORATORYCLIA [id number] [place] [address] [place] Protein [Mass/Vol] 6.3 g/dL Normal 6.3-8.0 [facility] Comment on above: Order Comment: Lenard jesus Type: BLOOD SPECIMENOrdering Facility: [facility] Address: [address] [place] [address] Performed By: #### 2 4322-12, ####KO LABORATORYCLIA [id number] [place] [address] [place] Sodium [Moles/Vol] 140 mmol/L Normal 136-144 [facility] Comment on above: Order Comment: Lenard jesus Type: BLOOD SPECIMENOrdering Facility: [facility] Address: [address] [place] [address] Performed By: #### 2 4328, ####KO LABORATORYCLIA [id number] [place] [address] [place] Urea nitrogen [Mass/Vol] 46 mg/dL High 7-21 [facility] Comment on above: Order Comment: Speci men Type: BLOOD SPECIMENOrdering Facility: [facility] Address: [address] [place], [place] [address] Performed By: #### 2 4323-8, 18469-1 ####NEW[facility] LABORATORYCLIA [id number] [place] [address] [facility] Magnesium SerPl-mCncon 11-15 Magnesium [Mass/Vol] 2.1 mg/dL Normal 1.7-2.3 [facility] Comment on above: Order Comment: Speci men Type: BLOOD SPECIMENOrdering Facility: [facility] Address: [address] [place] [address] Performed By: #### 2 4323-8, ####NEWARK LABORATORYCLIA [id number] [place] [address] [facility] NURSING PROGon 11-16-2023 NURSING PROG HNO ID: [id number] Author: MISTY ASCENCIO, CARO Service: Nursing Author Type: Registered Nurse Type: Nursing Progress Note Filed: 11/16/2023 14:15 Note Text: PATIENT EDUCATION HEART FAILURE PATIENT NAME: Sandra Schmitz PATIENT LOCATION: [place] [address] [address] SURVIVAL SKILLS: Low Sodium Diet Weight Monitoring and Dry Weight Importance of Follow Up after Discharge Fluid Restriction, if applicable Heart Failure Medications Symptom Management related to heart failure Activity / Physical Exercise Recommendations Smoking cessation counseling if applicable When Patient Should Call Provider READINESS TO LEARN COGNITIVE ABILITY: Alert and oriented MOTIVATION TO LEARN: Eager FAMILY SUPPORT: Unable to assess - Family not present INSTRUCTION PROVIDED TO: Patient PATIENT LEARNS BEST BY: Individual Instruction Verbal Instruction FACTORS AFFECTING LEARNING: None PHYSICAL LIMITATIONS AFFECTING LEARNING: None LEARNING RESPONSE DIAGNOSIS: Heart Failure PATIENT/FAMILY RESPONSE: Initial visit for CHF education. Admitting DX: Syncope. Seen for CHF history-EF 26%. Seen during 07/10/2023 admission for HF. Review of Survival Skills. Pt is participating in cardiac rehab post insertion of pacemaker/defib. 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 States she missed her echo and Dr Castro appointment d/t back pain issues. Both have been rescheduled. Unfortunately she is unable to see Dr Castro until January. States stable weights with little fluctuation between 188lb to low 190s. Today's weight is 193lb. She states compliance w/ medication-however she experienced side effects w/ Jardiance and Entresto. States compliance w/ low sodium diet. Discussed fluid allowance as it relates to this admission. Currently on IV fluids d/t MAYCOL. Discussed daily weight and BPs for assessing fluid overload, as well as, dehydration. METHOD OF INSTRUCTION: Individual instruction Verbal instruction FOLLOW-UP PLAN: Patient instructed to call with any further issues Reinforce - Repeat previous content Recommend - Recommend continued instruction and follow up as directed Follow up with cardiology Follow up phone call. Contact information given. INSTRUCTIONAL AIDS USED: NA SUPPLEMENTAL MATERIAL PROVIDED TO PATIENT: Patient refused Heart Failure binder/booklet, already has Heart Failure binder/booklet. REFERRAL (RECOMMENDATION): Cardiology Electronically Signed By: Misty [facility] HNO ID: [id number] Author: JESUS PADILLA RT(R) Service: Radiology Author Type: Technologist Type: Allied Health Filed: 11/15/2023 20:26 Note Text: Radiology Service Progress Note PATIENT NAME: Sandra Schmitz DATE OF SERVICE: November 15, 2023 TIME: 8:26 PM PATIENT IDENTITY VERIFICATION COMPLETED USING TWO (2) IDENTIFIERS: Name and Date of confirmed by patient verbally. FALL SCREENING: Has the patient had 2 falls in the last year or 1 fall with injury or currently using an Ambulatory Assistive Device (Walker, Cane, Wheelchair, Crutches, etc.)? Emergency Room Patient: Screened in ED PATIENT GENDER DATA: Female. status: : No status: NO. PATIENT RELEVANT IMPLANT DATA REVIEWED: Not Applicable PATIENT PRESENTS WITH AN IMPLANTABLE OR ATTACHED MEDICAL SALES: No RADIOLOGY DEPARTMENT: General X-ray: Exam(s) Completed: Chest X-Ray PERIPHERAL IV DATA: Not applicable SIGNED BY: RT William(R) November 15, 2023 8:26 PM [facility] HNO ID: [id number] Author: MASON VAIL RT(R) Service: Radiology Author Type: Technologist Type: Allied Health Filed: 11/15/2023 20:10 Note Text: Radiology Service Progress Note PATIENT NAME: Sandra Schmitz DATE OF SERVICE: November 15, 2023 TIME: 8:05 PM PATIENT IDENTITY VERIFICATION COMPLETED USING TWO (2) IDENTIFIERS: Name and Date of confirmed by patient verbally and Name and Date of confirmed by identification band. FALL SCREENING: Has the patient had 2 falls in the last year or 1 fall with injury or currently using an Ambulatory Assistive Device (Walker, Cane, Wheelchair, Crutches, etc.)? Emergency Room Patient: Screened in ED PATIENT GENDER DATA: Female. status: : No status: NO. PATIENT RELEVANT IMPLANT DATA REVIEWED: Not Applicable PATIENT PRESENTS WITH AN IMPLANTABLE OR ATTACHED MEDICAL SALES: No RADIOLOGY DEPARTMENT: CT; Exam(s) Completed: Abdomen/Pelvis and Brain PERIPHERAL IV DATA: Inpatient: see LDA documentation SIGNED BY: RT Dominique(R) November 15, 2023 8:05 PM Normal [facility] CBC W Auto Differential pane l (Bld)on 11-15-2023 Basophils (Bld) [#/Vol] 0.10 10*3/uL Normal <0.11 [facility] Comment on above: Order Comment: Speci men Type: BLOOD SPECIMENOrdering Facility: [facility] Address: [address] [place] [address] Performed By: #### 5 7021-8 ####KO LABORATORYCLIA [id number] [place] [address] [place] Basophils/100 WBC (Bld) 0.6 % Normal [facility] Comment on above: Order Comment: Speci men Type: BLOOD SPECIMENOrdering Facility: [facility] Address: [address] [place] [address] Performed By: #### 5 7021-8 ####KO LABORATORYCLIA [id number] [place] [address] [place] Differential cell count method Nom (Bld) Auto Normal [facility] Comment on above: Order Comment: Speci men Type: BLOOD SPECIMENOrdering Facility: [facility] Address: [address] [place] [address] Performed By: #### 5 7021-8 ####KO LABORATORYCLIA [id number] [address] [place] Eosinophils (Bld) [#/Vol] 0.22 10*3/uL Normal <0.46 [facility] Comment on above: Order Comment: Speci men Type: BLOOD SPECIMENOrdering Facility: [facility] Address: [address] [place] [address] Performed By: #### 5 7021-8 ####KO LABORATORYCLIA [id number] [address] Eosinophils/100 WBC (Bld) 1.4 % Normal [facility] Comment on above: Order Comment: Speci men Type: BLOOD SPECIMENOrdering Facility: [facility] Address: [address] [place] [address] Performed By: #### 5 7021-8 ####KO LABORATORYCLIA [id number] [address] [place] Erythrocyte distribution width (RBC) [Ratio] 14.3 % Normal 11.5-15.0 [facility] Comment on above: Order Comment: Speci men Type: BLOOD SPECIMENOrdering Facility: [facility] Address: [address] [place] [address] Performed By: #### 5 7021-8 ####KO LABORATORYCLIA [id number] [address] Hematocrit (Bld) [Volume fraction] 43.3 % Normal 36.0-46.0 [facility] Comment on above: Order Comment: Speci men Type: BLOOD SPECIMENOrdering Facility: [facility] Address: [address] [place] [address] Performed By: #### 5 7021-8 ####KO LABORATORYCLIA [id number] [address] [place] Hemoglobin (Bld) [Mass/Vol] 13.8 g/dL Normal 11.5-15.5 [facility] Comment on above: Order Comment: Speci men Type: BLOOD SPECIMENOrdering Facility: [facility] Address: [address] [place] [address] Performed By: #### 5 7021-8 ####KO LABORATORYCLIA [id number] [place] [address] [place] Immature granulocytes (Bld) [#/Vol] 0.25 10*3/uL High <0.10 [facility] Comment on above: Order Comment: Speci men Type: BLOOD SPECIMENOrdering Facility: [facility] Address: [address] [place] [address] Performed By: #### 5 7021-8 ####KO LABORATORYCLIA [id number] [address] [place] [facility] Immature granulocytes/100 WBC (Bld) 1.6 % Normal [facility] Comment on above: Order Comment: Speci men Type: BLOOD SPECIMENOrdering Facility: [facility] Address: [address] [place] [address] Performed By: #### 5 7021-8 ####KO LABORATORYCLIA [id number] [address] [place] Lymphocytes (Bld) [#/Vol] 2.35 10*3/uL Normal 1.00-4.00 [facility] Comment on above: Order Comment: Speci men Type: BLOOD SPECIMENOrdering Facility: [facility] Address: [address] [place] [address] Performed By: #### 5 7021-8 ####KO LABORATORYCLIA [id number] [address] Lymphocytes/100 WBC (Bld) 15.0 % Normal [facility] Comment on above: Order Comment: Speci men Type: BLOOD SPECIMENOrdering Facility: [facility] Address: [address] [place] [address] Performed By: #### 5 7021-8 ####KO LABORATORYCLIA [id number] [place] [address] [place] MCH (RBC) [Entitic mass] 29.3 pg Normal 26.0-34.0 [facility] Comment on above: Order Comment: Speci men Type: BLOOD SPECIMENOrdering Facility: [facility] Address: [address] [place] [address] Performed By: #### 5 7021-8 ####KO LABORATORYCLIA [id number] [place] [id number] [place] MCHC (RBC) [Mass/Vol] 31.9 g/dL Normal 30.5-36.0 [facility] Comment on above: Order Comment: Speci men Type: BLOOD SPECIMENOrdering Facility: [facility] Address: [address] [place] [address] Performed By: #### 5 7021-8 ####KO LABORATORYCLIA [id number] [place] [address] [place] MCV (RBC) [Entitic vol] 91.9 fL Normal 80.0-100.0 [facility] Comment on above: Order Comment: Speci men Type: BLOOD SPECIMENOrdering Facility: [facility] Address: [address] [place] [address] Performed By: #### 5 7021-8 ####OK LABORATORYCLIA [id number] [place] [address] [place] Monocytes (Bld) [#/Vol] 1.05 10*3/uL High <0.87 [facility] Comment on above: Order Comment: Speci men Type: BLOOD SPECIMENOrdering Facility: [facility] Address: [address] [place] [address] Performed By: #### 5 7021-8 ####KO LABORATORYCLIA [id number] [address] Monocytes/100 WBC (Bld) 6.7 % Normal [facility] Comment on above: Order Comment: Speci men Type: BLOOD SPECIMENOrdering Facility: [facility] Address: [address] [place] [address] Performed By: #### 5 7021-8 ####KO LABORATORYCLIA [id number] [place] [id number] [place] Neutrophils (Bld) [#/Vol] 11.69 10*3/uL High 1.45-7.50 [facility] Comment on above: Order Comment: Speci men Type: BLOOD SPECIMENOrdering Facility: [facility] Address: [address] [place] [address] Performed By: #### 5 7021-8 ####KO LABORATORYCLIA [id number] [address] Neutrophils/100 WBC (Bld) 74.7 % Normal [facility] Comment on above: Order Comment: Speci men Type: BLOOD SPECIMENOrdering Facility: [facility] Address: [address] [place] [address] Performed By: #### 5 7021-8 ####KO LABORATORYCLIA [id number] [place] [address] [place] Nucleated RBC (Bld) [#/Vol] 10*3/uL Normal <0.01 [facility] Comment on above: Order Comment: Speci men Type: BLOOD SPECIMENOrdering Facility: [facility] Address: [address] [place] [address] Performed By: #### 5 7021-8 ####KO LABORATORYCLIA [id number] [address] [place] [facility] Nucleated RBC/100 WBC (Bld) [Ratio] 0.0 /100 WBC Normal [facility] Comment on above: Order Comment: Speci men Type: BLOOD SPECIMENOrdering Facility: [facility] Address: [address] [place] [address] Performed By: #### 5 7021-8 ####KO LABORATORYCLIA [id number] [address] [place] Platelet mean volume (Bld) [Entitic vol] 10.4 fL Normal 9.0-12.7 [facility] Comment on above: Order Comment: Speci men Type: BLOOD SPECIMENOrdering Facility: [facility] Address: [address] [place] [address] Performed By: #### 5 7021-8 ####KO LABORATORYCLIA [id number] [address] [place] Platelets (Bld) [#/Vol] 386 10*3/uL Normal 150-400 [facility] Comment on above: Order Comment: Speci men Type: BLOOD SPECIMENOrdering Facility: [facility] Address: [address] [facility] [place] [address] Performed By: #### 5 7021-8 ####KO LABORATORYCLIA [id number] [place] [address] [place] RBC (Bld) [#/Vol] 4.71 10*6/uL Normal 3.90-5.20 [facility] Comment on above: Order Comment: Speci men Type: BLOOD SPECIMENOrdering Facility: [facility] Address: [address] [place] [address] Performed By: #### 5 7021-8 ####KO LABORATORYCLIA [id number] [place] [address] [place] WBC (Bld) [#/Vol] 15.66 10*3/uL High 3.70-11.00 [facility] Comment on above: Order Comment: Speci men Type: BLOOD SPECIMENOrdering Facility: [facility] Address: [address] [place] [address] Performed By: #### 5 7021-8 ####[facility] LABORATORYCLIA [id number] [address] OF [facility] CT ABD/PEL WO IVCONon 2023 CT ABD/PEL WO IVCON * * *Final Report* * * DATE OF EXAM: Nov 15 2023 8:16PM [facility] [place]/PEL WO IVCON / PROCEDURE REASON: Abdominal abscess/infection suspected * * * * Physician Interpretation * * * * EXAMINATION: CT ABDOMEN AND PELVIS WITHOUT IV CONTRAST CLINICAL HISTORY: Abdominal abscess/infection suspected TECHNIQUE: Non-IV contrast imaging of the abdomen and pelvis was performed using standard technique, scanning from just above the dome of the diaphragm to the symphysis pubis. Unenhanced imaging is limited for the evaluation of some intra-abdominal and pelvic pathology. MQ: CTAPWO_3 Contrast: IV: None : ml of CT Radiation dose: Integrated Dose-length product (DLP) for this visit = 621.47 mGy*cm. CT Dose Reduction Employed: Automated exposure control(AEC) and iterative recon COMPARISON: 09/04/2022. RESULT: Abdomen / Pelvis: Liver: Unremarkable. Normal hepatic pathology. Biliary: Cholecystectomy. Spleen: No splenomegaly. Pancreas: Unremarkable. Adrenals: No mass. Kidneys: No renal calculus or hydronephrosis. GI Tract: No bowel dilation. Colonic diverticulosis without findings of acute diverticulitis. Lymph Nodes: No lymphadenopathy. Mesentery/peritoneum: No ascites. Retroperitoneum: No mass. Vasculature: Arterial atherosclerotic disease without aneurysm. Pelvis: No mass or ascites. Partially distended urinary bladder otherwise unremarkable. Bones/Soft Tissues: No acute abnormality. Degenerative changes in the lumbar spine. Stable low-grade anterolisthesis. Soft tissues are unremarkable. Lower thorax: Unremarkable. Localizer images: No additional findings. IMPRESSION: No acute process in the abdomen and pelvis. Additional findings as detailed in the report. 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 Transcribe Date/Time: Nov 15 2023 8:42P Dictated by : PATRICIA GARCÍA MD This examination was interpreted and the report reviewed and electronically signed by: PATRICIA GARCÍA MD on Nov 15 2023 8:44PM EST [id number] [facility] CT BRAIN WO IVCONon 11-15-19 CT BRAIN WO IVCON * * *Final Report* * * DATE OF EXAM: Nov 15 2023 8:16PM [facility] [place] BRAIN WO IVCON / PROCEDURE REASON: Encephalitis * * * * Physician Interpretation * * * * EXAMINATION: CT BRAIN WO IVCON CLINICAL HISTORY: Encephalitis TECHNIQUE: Serial axial images without IV contrast were obtained from the vertex to the foramen magnum. MQ: CTBWO_3 CT Radiation dose: Integrated Dose-Length Product (DLP) for this visit = 748.77 mGy*cm CT Dose Reduction Employed: Automated exposure control(AEC) and iterative recon COMPARISON: 11/01/2023 RESULT: Post-operative change: None. Acute change: No evidence of an acute infarct or other acute parenchymal process. Hemorrhage: No evidence of acute intracranial hemorrhage. ECASS hemorrhagic transformation score: Not Applicable Mass Lesion / Mass Effect: There is no evidence of an intracranial mass or extraaxial fluid collection. No significant mass effect. Chronic change: Scattered patchy foci of low attenuation are present within supratentorial white matter which is a nonspecific finding but likely represents mild microvascular ischemia. Parenchyma: There is mild generalized volume loss. The brain parenchyma is otherwise within normal limits for age. Ventricles: Ventricular enlargement concordant with the degree of parenchymal volume loss. Paranasal sinuses and skull base: The visualized paranasal sinuses are grossly clear. The skull base and imaged soft tissues are unremarkable. Localizer images: No additional findings. IMPRESSION: No acute intracranial findings. No evidence of intracranial hemorrhage. Mild chronic microvascular ischemic changes and parenchymal volume loss. Additional findings as detailed. 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 Apprentice: KEYANA Transcribe Date/Time: Nov 15 2023 8:44P Dictated by : PATRICIA GARCÍA MD This examination was interpreted and the report reviewed and electronically signed by: PATRICIA GARCÍA MD on Nov 15 2023 8:46PM EST [id number] Normal [facility] Comprehensive metabolic 2000 panelon 11-15-2023 Albumin [Mass/Vol] 3.9 g/dL Normal 3.9-4.9 [facility] Comment on above: Order Comment: Lenard jesus Type: BLOOD SPECIMENOrdering Facility: [facility] Address: [address] [place] [address] Performed By: #### 2 4323-8, 3040-3, 03316-6, 27526-7, [id number] ####NEWARK LABORATORYCLIA [id number] [place] [address] [place] ALP [Catalytic activity/Vol] 64 U/L Normal 34-123 [facility] Comment on above: Order Comment: Lenard jesus Type: BLOOD SPECIMENOrdering Facility: [facility] Address: [address] [place] [address] Performed By: #### 2 4323-8, 3040-3, 64806-5, 14911-8, [id number] ####NEWARK LABORATORYCLIA [id number] [place] [id number] [place] ALT [Catalytic activity/Vol] 14 U/L Normal 7-38 [facility] Comment on above: Order Comment: Lenard jesus Type: BLOOD SPECIMENOrdering Facility: [facility] Address: [address] [place] [address] Performed By: #### 2 4323-8, 3040-3, 56559-1, 88791-7, [id number] ####NEWARK LABORATORYCLIA [id number] [place] [id number] [place] Anion gap [Moles/Vol] 11 mmol/L Normal 8-15 [facility] Comment on above: Order Comment: Speci men Type: BLOOD SPECIMENOrdering Facility: [facility] Address: [address] [place] [address] Performed By: #### 2 4323-8, 3040-3, 33037-3, 11830-3, [id number] ####NEW[facility] LABORATORYCLIA [id number] [place] [address] [place] AST [Catalytic activity/Vol] Normal [facility] Comment on above: Order Comment: Speci men Type: BLOOD SPECIMENOrdering Facility: [facility] Address: [address] [place] [address] Result Comment: Unab le to assay due to interference from hemolysis. Suggest reorder as clinically indicated. Performed By: #### 2 4323-8, 3040-3, 40296-0, 57152-5, [id number] ####NEW[facility] LABORATORYCLIA [id number] [place] [address] [place] Bilirubin [Mass/Vol] 0.3 mg/dL Normal 0.2-1.3 [facility] Comment on above: Order Comment: Speci men Type: BLOOD SPECIMENOrdering Facility: [facility] Address: [address] [place] [address] Performed By: #### 2 4323-8, 3040-3, 80464-7, 47534-2, [id number] ####NEW[facility] LABORATORYCLIA [id number] [place] [address] [place] Calcium [Mass/Vol] 9.5 mg/dL Normal 8.5-10.2 [facility] Comment on above: Order Comment: Speci men Type: BLOOD SPECIMENOrdering Facility: [facility] Address: [address] [place] [address] Performed By: #### 2 4323-8, 3040-3, 87127-5, 48943-1, [id number] ####[facility] LABORATORYCLIA [id number] [place] [address] [place] Chloride [Moles/Vol] 100 mmol/L Normal 98-107 [facility] Comment on above: Order Comment: Specjeffy men Type: BLOOD SPECIMENOrdering Facility: [facility] Address: [address] [place] [address] Performed By: #### 2 4323-8, 3040-3, 25091-2, 34372-4, [id number] ####NEW[facility] LABORATORYCLIA [id number] [place] [address] [place] CO2 [Moles/Vol] 28 mmol/L Normal 22-30 [facility] Comment on above: Order Comment: Speci men Type: BLOOD SPECIMENOrdering Facility: [facility] Address: [address] [place], [place] [address] Performed By: #### 2 4323-8, 3040-3, 70767-9, 30130-7, [id number] ####NEW[facility] LABORATORYCLIA [id number] [place] [id number] [place] Creatinine [Mass/Vol] 1.94 mg/dL High 0.58-0.96 [facility] Comment on above: Order Comment: Speci men Type: BLOOD SPECIMENOrdering Facility: [facility] Address: [address] [place], [place] [address] Performed By: #### 2 4323-8, 3040-3, 11937-4, 22214-7, [id number] ####[facility] LABORATORYCLIA [id number] [place] [id number] [facility] Creatinine and Glomerular filtration rate.predicted panel (S/P/Bld) 26 mL/min/1.73m??? Low >=60 [facility] Comment on above: Order Comment: Spec men Type: BLOOD SPECIMENOrdering Facility: [facility] Address: [address] [place], [place] [address] Result Comment: Aaron mated Glomerular Filtration Rate (eGFR) is calculated using the 2020 CKD-EPI creatinine equation. This equation utilizes serum creatinine, sex, and age as parameters. The creatinine assay has traceable calibration to isotope dilution-mass spectrometry. Refer to KDIGO guidelines for clinical interpretation. In patients with unstable renal function, e.g. those with acute kidney injury, the eGFR may not accurately reflect actual GFR. Performed By: #### 2 4323-8, 3040-3, 83916-2, 65954-7, [id number] ####KO LABORATORYCLIA [id number] [place] [address] [place] Glucose [Mass/Vol] 147 mg/dL High 74-99 [facility] Comment on above: Order Comment: Lenard jesus Type: BLOOD SPECIMENOrdering Facility: [facility] Address: [address] [place] [address] Result Comment: The [place] Diabetes [employer] (ADA) provides guidance for cutoff values for fasting glucose and random glucose. The ADA defines fasting as no caloric intake for at least 8 hours. Fasting plasma glucose results between 100 to 125 mg/dL indicate increased risk for diabetes (prediabetes). Fasting plasma glucose results greater than or equal to 126 mg/dL meet the criteria for diagnosis of diabetes. In the absence of unequivocal hyperglycemia, results should be confirmed by repeat testing. In a patient with classic symptoms of hyperglycemia or hyperglycemic crisis, random plasma glucose results greater than or equal to 200 mg/dL meet the criteria for diagnosis of diabetes. Reference: Standards of Medical Care in Diabetes 2016, [place] [employer]. Diabetes Care. 2016.39(Suppl 1). Performed By: #### 2 4323-8, 3040-3, 05290-3, 51922-7, [id number] ####KO LABORATORYCLIA [id number] [place] [id number] [place] Potassium [Moles/Vol] 4.5 mmol/L Normal 3.7-5.1 [facility] Comment on above: Order Comment: Lenard jesus Type: BLOOD SPECIMENOrdering Facility: [facility] Address: [address] [place] [id number] Performed By: #### 2 4323-8, 3040-3, 55611-6, 60005-7, [id number] ####[facility] LABORATORYCLIA [id number] [place] [id number] [place] Protein [Mass/Vol] 7.5 g/dL Normal 6.3-8.0 [facility] Comment on above: Order Comment: Lenard jesus Type: BLOOD SPECIMENOrdering Facility: [facility] Address: [address] [place] [address] Performed By: #### 2 4323-8, 3040-3, 79145-9, 64793-2, [id number] ####KO LABORATORYCLIA [id number] [address] [place] [facility] Sodium [Moles/Vol] 139 mmol/L Normal 136-144 [facility] Comment on above: Order Comment: Speci men Type: BLOOD SPECIMENOrdering Facility: [facility] Address: [address] [place], [place] [address] Performed By: #### 2 4323-8, 3040-3, 84395-6, 14913-8, [id number] ####KO LABORATORYCLIA [id number] [address] Urea nitrogen [Mass/Vol] 50 mg/dL High 7-21 [facility] Comment on above: Order Comment: Speci men Type: BLOOD SPECIMENOrdering Facility: [facility] Address: [address] [place] [address] Performed By: #### 2 4323-8, 3040-3, 41174-8, 68611-6, [id number] ####[facility] LABORATORYCLIA [id number] [address] D dimer FEU PPP-mCncon 11-14 Fibrin D-dimer FEU (PPP) [Mass/Vol] 620 ng/mL FEU High <500 [facility] Comment on above: Order Comment: Speci men Type: BLOOD SPECIMENOrdering Facility: [facility] Address: [address] [place] [address] Performed By: #### 4 8065-7, 43904-1, 57090-1 ####[facility] LABORATORYCLIA [id number] [place] [id number] [facility] ED NOTEon 11-15-2023 ED NOTE HNO ID: [id number] Author: CHALO CHAIDEZ, CARO Service: ? Author Type: Registered Nurse Type: ED Notes Filed: 11/15/2023 22:21 Note Text: Verbal phone report was provided to Josette on . The pt remains stable for transport to the floor for admission. NAD noted at this time. Belongings list was completed. Medic to transport. [facility] ED NOTE HNO ID: [id number] Author: CHALO CHAIDEZ RN Service: ? Author Type: Registered Nurse Type: ED Notes Filed: 11/15/2023 22:07 Note Text: Heads up called to -South charge nurse (Spoke with Singh) [facility] ED PROV NOTEon 11-15-2023 ED PROV NOTE HNO ID: [id number] Author: ISIAH CHOI MD Service: Emergency Medicine Author Type: Physician Type: ED Provider Notes Filed: 11/15/2023 22:01 Note Text: ED Provider Note Patient Name: Sandra Schmitz : 1945 SERVICE DATE: 11/15/23 History Patient presents with: Syncope: Having abd cramps was sitting in the bathroom when started breaking out in a sweat and blacking out. Ms. Schmitz is a 78-year-old female with history of cholecystitis and pacer and CHF hypertension and factor V Leiden and IBS now presenting after she had some lower abdominal cramping and then had a near syncopal episode and felt like she had some tingling around both sides of her face just prior to getting here. She feels much better now. No unilateral weakness or numbness or trouble speaking or swallowing. No chest pain. PAST MEDICAL HISTORY Diagnosis Date Acute acalculous cholecystitis 05/30/2020 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 09/22/2020 Acute on chronic systolic CHF (congestive heart failure) ([facility]) 05/03/2020 Aspiration pneumonia ([facility]) 05/30/2020 Chest pain 05/03/2020 Chest pressure 01/23/2013 Chronic diastolic congestive heart failure (HCC) 02/14/2021 Clostridium difficile diarrhea 09/28/2020 Complete uterovaginal prolapse Cystocele, midline Essential hypertension 06/14/2020 Homozygous Factor V Leiden mutation ([facility]) 05/03/2020 Hypothyroidism IBS (irritable bowel syndrome) 01/23/2013 Palpitation CHRONIC Post-operative state 05/24/2020 Rectocele 05/25/2020 Shortness of breath 05/03/2020 Status post laparoscopic hysterectomy 05/30/2020 Tubular adenoma of colon 12/09/2020 Uterine prolapse 05/03/2020 PAST SURGICAL HISTORY Procedure Laterality Date COLONOSCOPY 01/07/2015 COLONOSCOPY 12/05/2021 repeat in 5 years COLONOSCOPY GEN ANES 12/06/2009 X3 LAST ONE IN 2009 EGD 11/08/2012 EGD 12/05/2021 PAST SURGICAL HISTORY OF 05/14/1999 left foot bunionectomy w/screws PAST SURGICAL HISTORY OF 05/14/1981 ectopic w/tube removal PAST SURGICAL HISTORY OF 2009 CYST REMOVED FROM UTERUS PAST SURGICAL HISTORY OF 05/24/2020 TVH, partial colpectomy, anterior colporrhaphy, Dennis transobturator midurethral sling, cystourethroscopy, rectocele repair with perineorrhaphy, laparoscopic lysis of adhesions and excision of bilateral adnexal structures PAST SURGICAL HISTORY OF 09/07/2020 Laparoscopic cholecystectomy with intraoperative cholangiograms. Dr. Ragsdale FAMILY HISTORY Problem Relation Age of Onset Blood Disease Mother Coronary Artery Disease Mother Cancer Mother lung Blood Disease Father Coronary Artery Disease Father Heart Father pacemaker Diabetes Father Breast Cancer Sister younger sis. COPD Brother Hypertension Brother Heart disease Brother Coronary Artery Disease Maternal Grandmother Ischemic Heart Disease Maternal Grandfather Coronary Artery Disease Maternal Grandfather Coronary Artery Disease Daughter Social History Tobacco Use Smoking status: Former Types: Cigarettes Quit date: 10/22/2002 Years since quittin.0 Smokeless tobacco: Never Vaping Use Vaping Use: Never used Substance and Sexual Activity Alcohol use: No Drug use: No Sexual activity: Not Currently ALLERGIES Allergen Reactions Emilio Inhibitors Intolerance Short of breath, symptoms of heart failure Beta-Blockers (Beta* Intolerance Short of breath, symptoms of heart failure Augmentin [Amoxicil* GI Upset Codeine Mental Status Change Patient felt like she was made out of lead Lipitor [Atorvastat* Myalgia Muscle aches Sulfa (Sulfonamide * Intolerance Amlodipine Intolerance lightheaded Review of Systems Constitutional: Positive for fatigue. Negative for chills and fever. HENT: Negative for ear pain, rhinorrhea and sore throat. Respiratory: Negative for cough and shortness of breath. Cardiovascular: Negative for chest pain and leg swelling. Gastrointestinal: Positive for abdominal pain and nausea. Negative for diarrhea and vomiting. Genitourinary: Negative for dysuria, flank pain, frequency and hematuria. Musculoskeletal: Negative for back pain. Skin: Negative for rash. Neurological: Positive for weakness and light-headedness. Negative for speech difficulty, numbness and headaches. Psychiatric/Behavioral: Negative for hallucinations and suicidal ideas. Physical Exam Vitals [11/15/23 191] BP Pulse Temp Temp src Resp SpO2 Weight Height 120/72 (!) 54 36.4 ?C (97.5 ?F) Oral 18 95 % 85.7 kg (189 lb) -- Physical Exam Vitals and nursing note reviewed. Constitutional: General: She is not in acute distress. Appearance: She is well-developed. HENT: Head: Normocephalic and atraumatic. Eyes: Pupils: Pupils are equal, round, and reactive to light. Neck: Trachea: No tracheal deviation. Cardiovascular: Rate and Rhythm: Normal rate. Heart sounds: No murmur heard. No friction rub. No gallop. (more content not included)... [facility] EKGon 11-15-2023 Electrocardiogram Ventricular Rate : 5 9 BPM Atrial Rate : 59 BPM P-R Interval : 114 ms QRS Duration : 122 ms Q-T Interval : 490 ms QTC Calculation(Bazett) : 485 ms Calculated P [place] : 27 degrees Calculated R [place] : -60 degrees Calculated T [place] : 78 degrees Atrial-sensed ventricular-paced rhythm ABNORMAL ECG When compared with selected ECG of 10-Jul-2023 07:12, ELECTRONIC VENTRICULAR PACEMAKER HAS REPLACED SINUS RHYTHM no STEMI Confirmed by MD CHOI EDWARD.S ([id number]) on 11/15/2023 7:34:54 PM NAME : SANDRA SCHMITZ PID : [id number] : 1945 Gender : Female Race : ORD : Procedure Date : Nov 15 2023 19:27:04 Edit Date : Nov 15 2023 19:34:59 Diagnosis: Atrial-sensed ventricular-paced rhythm ABNORMAL ECG When compared with selected ECG of 10-Jul-2023 07:12, ELECTRONIC VENTRICULAR PACEMAKER HAS REPLACED SINUS RHYTHM no STEMI Confirmed by MD CHOI EDWARD.S ([id number]) on 11/15/2023 7:34:54 PM Test Reason : Location : 1 : ER ED Overread By : MD CHOI EDWARD.S Edited By : MD CHOI EDWARD.Eileen Referred By : , Acquired by : WENCESLAO RN, [facility] FLUABV+SARS-CoV-2+RSV Pnl Re sp PRECIOUS+probeon 11-15-2023 FLUABV+SARS-CoV-2+RSV Pnl Resp PRECIOUS+probe COVID 19 RESULT: Not detected The method used is RT-PCR or an equivalent NAAT method. Reference Range(the expected result in uninfected individuals): Not detected INFLUENZA A PCR: Not detected INFLUENZA B PCR: Not detected RSV PCR: Not detected Normal [facility] Comment on above: Performed By: #### 9 5941-1 ####[facility] LABORATORYCLIA [id number] [place] [address] [place] Fibrin D-dimer FEU (PPP) [Ma ss/Vol]on 11-15-2023 D DIMER AGE-RELATED CUTOFF 770 ng/mL FEU Normal [facility] Comment on above: Order Comment: Lenard jesus Type: BLOOD SPECIMENOrdering Facility: [facility] Address: [address] [place] [address] Performed By: #### 4 8065-7, 67295-2, 93265-0 ####[facility] LABORATORYCLIA [id number] [address] [place] Gas and Carbon monoxide pane l (BldV)on 11-15-2023 Base excess Calc (BldV) [Moles/Vol] 2 mmol/L Normal 0-2 [facility] Comment on above: Order Comment: Lenard jesus Type: VENOUS BLOOD SPECIMENOrdering Facility: [facility] Address: [address] [place] [address] Performed By: #### 2 4344-4 ####[facility] RESPIRATORYCLIA [id number] [facility]IRAT[facility] [id number] [place] [id number] Carboxyhemoglobin (BldV) [Mass fraction] <1.0 Normal 0.0-2.0 [facility] Comment on above: Order Comment: Lenard jesus Type: VENOUS BLOOD SPECIMENOrdering Facility: [facility] Address: [address] [place] [address] Result Comment: Carb oxyhemoglobin Reference Range for Smokers: 2.0-8.0% Performed By: #### 2 4344-4 ####[facility] RESPIRATORYCLIA [id number] [facility] [id number] [address] [address] CO2 (BldV) [Partial pressure] 46 mm[Hg] Normal 42-55 [facility] Comment on above: Order Comment: Speci men Type: VENOUS BLOOD SPECIMENOrdering Facility: [facility] Address: [address] [place] [address] Performed By: #### 2 4344-4 ####KO RESPIRATORYCLIA [id number] [facility] RESPIRAT[facility] [id number] [address] [address] CO2 adjusted to patient's actual temperature (BldV) [Partial pressure] Normal [facility] Comment on above: Order Comment: Speci men Type: VENOUS BLOOD SPECIMENOrdering Facility: [facility] Address: [address] [place] [address] Performed By: #### 2 4344-4 ####[facility] [id number] [facility]OSP[facility] RESPIRATORY [id number] [address] [address] HCO3 (Bld) [Moles/Vol] 27 mmol/L Normal 24-28 [facility] Comment on above: Order Comment: Speci men Type: VENOUS BLOOD SPECIMENOrdering Facility: [facility] Address: [address] [place] [address] Performed By: #### 2 4344-4 ####[facility] [id number] [facility] RESPIRAT[facility] [id number] [address] [address] Hemoglobin (Bld) [Mass/Vol] 13.0 g/dL Normal 11.5-15.5 [facility] Comment on above: Order Comment: Speci men Type: VENOUS BLOOD SPECIMENOrdering Facility: [facility] Address: [address] [place] [address] Performed By: #### 2 4344-4 ####[facility] [id number] [facility] RESPIRATORY [id number] [address] [address] Lactate [Moles/Vol] 1.6 mmol/L Normal 0.5-2.2 [facility] Comment on above: Order Comment: Speci men Type: VENOUS BLOOD SPECIMENOrdering Facility: [facility] Address: [address] [place] [address] Performed By: #### 2 4344-4 ####KO RESPIRATORYCLIA [id number] [facility]OS[facility] RESPIRATORY [id number] [address] [address] Methemoglobin (Bld) [Mass fraction] % Normal 0.0-1.5 [facility] Comment on above: Order Comment: Speci men Type: VENOUS BLOOD SPECIMENOrdering Facility: [facility] Address: [address] [place] [id number] Performed By: #### 2 4344-4 ####KO RESPIRATORYCLIA [id number] [facility] RESPIRATORY [id number] [address] [address] O2 THERAPY RA=Room Air [facility] Comment on above: Order Comment: Speci men Type: VENOUS BLOOD SPECIMENOrdering Facility: [facility] Address: [address] [place] [address] Performed By: #### 2 4344-4 ####[facility] RESPIRATORYIA [id number] [facility] RESPIRATORY [id number] [address] [address] Oxygen (BldV) [Partial pressure] 42 mm[Hg] Normal 35-45 [facility] Comment on above: Order Comment: Speci men Type: VENOUS BLOOD SPECIMENOrdering Facility: [facility] Address: [address] [place] [id number] Performed By: #### 2 4344-4 ####KO RESPIRATORYIA [id number] [facility]OS[facility] RESPIRATORY [id number] [address] [address] Oxygen adjusted to patient's actual temperature (BldV) [Partial pressure] Normal [facility] Comment on above: Order Comment: Speci men Type: VENOUS BLOOD SPECIMENOrdering Facility: [facility] Address: [address] [place] [address] Performed By: #### 2 4344-4 ####KO RESPIRATORYIA [id number] [facility]OS[facility] RESPIRATORY [id number] [address] [address] Oxygen saturation in Venous blood 74 % Normal 60-85 [facility] Comment on above: Order Comment: Speci men Type: VENOUS BLOOD SPECIMENOrdering Facility: [facility] Address: [address] [place] [address] Performed By: #### 2 4344-4 ####KO RESPIRATORYCLIA [id number] [facility]OS[facility] RESPIRATORY [id number] [address] [address] Oxyhemoglobin (BldV) [Mass fraction] 73 % Normal [facility] Comment on above: Order Comment: Speci men Type: VENOUS BLOOD SPECIMENOrdering Facility: [facility] Address: [address] [place] [address] Performed By: #### 2 4344-4 ####KO RESPIRATORYCLIA [id number] [facility] RESPIRATORY [id number] [address] [address] pH (BldV) 7.38 [pH] Normal 7.32-7.42 [facility] Comment on above: Order Comment: Speci men Type: VENOUS BLOOD SPECIMENOrdering Facility: [facility] Address: [address] [place] [address] Performed By: #### 2 4344-4 ####KO RESPIRATORYIA [id number] [facility] RESPIRATORY [id number] [address] [address] pH adjusted to patient's actual temperature (BldV) Normal [facility] Comment on above: Order Comment: Speci men Type: VENOUS BLOOD SPECIMENOrdering Facility: [facility] Address: [address] [place] [address] Performed By: #### 2 4344-4 ####KO RESPIRATORYCLIA [id number] [facility] RESPIRATORY [id number] [address] [address] Potassium [Moles/Vol] 3.8 mmol/L Normal 3.5-5.0 [facility] Comment on above: Order Comment: Speci men Type: VENOUS BLOOD SPECIMENOrdering Facility: [facility] Address: [address] [place] [address] Performed By: #### 2 4344-4 ####KO RESPIRATORYCLIA [id number] [facility] RESPIRATORY [id number] [address] [place] [address] HIGH SENSITIVITY TROPONIN T (INITIAL)on 11-15-2023 Troponin T.cardiac High sensitivity method [Mass/Vol] 31 ng/L High <12 [facility] Comment on above: Order Comment: Speci men Type: BLOOD SPECIMENOrdering Facility: [facility] Address: [address] [place] [address] Performed By: #### 2 4323-8, 3040-3, 79014-1, 57091-3, [id number] ####[facility] LABORATORYCLIA [id number] [address] HIGH SENSITIVITY TROPONIN T (SECOND)on 11-15-2023 Troponin T.cardiac High sensitivity method [Mass/Vol] 25 ng/L High <[address] [place] [address] Comment on above: Order Comment: Speci men Type: BLOOD SPECIMENOrdering Facility: [facility] Address: [address] [place] [address] Performed By: #### 3 3959-8, [id number] ####[facility] LABORATORYCLIA [id number] [address] HIGH SENSITIVITY TROPONIN T (THIRD) 3 HRS AFTER INITIALon 11-15-2023 Troponin T.cardiac High sensitivity method [Mass/Vol] 23 ng/L High <[address] [place] [address] Comment on above: Order Comment: Speci men Type: BLOOD SPECIMENOrdering Facility: [facility] Address: [address] [place] [address] Performed By: #### 3 016-3, [id number] ####[facility] LABORATORYCLIA [id number] [place] [id number] [place] HISTORY PHYSICALon HISTORY PHYSICAL HNO ID: [id number] Author: ADDI BRICE DO Service: Hospital Medicine Author Type: Physician Type: H&P Filed: 11/16/2023 00:14 Note Text: DEPARTMENT OF HOSPITAL MEDICINE HISTORY AND PHYSICAL EXAM SERVICE DATE: 11/16/2023 SERVICE TIME: 12:14 AM Primary Care Physician: Mandeep Houser DO NIGHT COVERAGE: Please page [facility] [place] [phone] for any issues or concerns Subjective CHIEF COMPLAINT: Syncope (Having abd cramps was sitting in the bathroom when started breaking out in a sweat and blacking out. ) HPI: This is a 78 year old female with PMH of non ischemic cardiomyopathy, HFrEF (2019, 07-12-23: EF 26%), s/p CUT PLUG PACKER-D (July 20, 2023, medtronic), non occlusive CAD ([facility]: ), IBS, Factor V Leiden Syndrome, HTN, HLD, CAD, Hypothyroidism almost blacking out. Patient states that earlier today she was having some abdominal spasms and went to the bathroom. Had a small BM then proceeded to very lightheaded and states her visions kind of went dark but she did not lose full consciousness. She is unsure of how long this lasted for, maybe 10-20 minutes until she felt better but still feels kind of tired and weak. Patient does not some diarrhea over the past few days but nothing worse than her baseline with IBS. Patient recently had dose of lasix decreased to 20mg PO Daily from 40. Patient took her last day of a prednisone taper today. Denies ETOH or tobacco. ED Course: Afebrile, HR 54 - 63, BP 114/55 - 153/98 Cr 1.94, Glu 147, K+ 4.5 Trop 31 ->23 BNP 1221 Ddimer 620 [address] 15[address] Brain: IMPRESSION: No acute intracranial findings. No evidence of intracranial hemorrhage. Mild chronic microvascular ischemic changes and parenchymal volume loss. Additional findings as detailed. CT Abd/Pelvis: IMPRESSION: No acute process in the abdomen and pelvis. Additional findings as detailed in the report. CXR: IMPRESSION: No acute cardiopulmonary disease. Labs Reviewed COMPREHENSIVE METABOLIC PANEL - Abnormal; Notable for the following components: Result Value Glucose 147 (*) BUN 50 (*) Creatinine 1.94 (*) Estimated Glomerular Filtration Rate 26 (*) All other components within normal limits HIGH SENSITIVITY TROPONIN T (INITIAL) - Abnormal; Notable for the following components: ALESSIO High Sensitivity 31 (*) All other components within normal limits NT PRO BNP - Abnormal; Notable for the following components: NT Pro BNP 1,221 (*) All other components within normal limits D-DIMER - Abnormal; Notable for the following components: D Dimer 620 (*) All other components within normal limits Narrative: 500 ng/mL FEU is the D Dimer cutoff to exclude DVT (deep vein thrombosis) and PE (pulmonary embolism) in patients with a low pre test probability. Supplemental Comment: In patients over 50 years with a low pre test probability for DVT and/or PE, an age adjusted D dimer cutoff can be calculated as [age x 10] ng/mL FEU. For example, a patient of 88 years would have an age adjusted D dimer cutoff of 880 ng/mL FEU. For patients with a suspected DVT, a D dimer level below 500 ng/mL FEU has a negative predictive value of >98.9%, a sensitivity of >96.9% and a specificity of >35.7%. For patients with a suspected PE, a D dimer level below 500 ng/mL FEU has a negative predictive value of >98.5%, and a sensitivity of >96.5% and a specificity of >38.8%. Reference: Lilo M, et al. FRANCISCA 2014 311:1117 and Oscar You N, et al. Celina Int Med 2016 165:253. COMPLETE BLOOD COUNT AND DIFFERENTIAL - Abnormal; Notable for the following components: WBC 15.66 (*) Abs Neut 11.69 (*) Abs Camas 1.05 (*) Abs Immature Gran 0.25 (*) All other components within normal limits ACTIVATED PARTIAL THROMBOPLASTIN TIME - Abnormal; Notable for the following components: APTT 22.7 (*) All other components within normal limits Narrative: Unfractionated Heparin Therapeutic Ranges: Standard Heparin Nomogram: 53 to 78 seconds (anti-Xa level of 0.3 to 0.7 U/ml) Low Dose/ACS Nomogram: 49 to 67 seconds (anti-Xa level of 0.2 to 0.5 U/ml) Stroke Treatment Nomogram: 49 to 67 seconds (anti-Xa level of 0.2 to 0.5 U/ml) Note: The APTT therapeutic range has been determined for the current lot of laboratory APTT reagent in use throughout the [facility]. HIGH SENSITIVITY TROPONIN T (SECOND) - Abnormal; Notable for the following components: ALESSIO High Sensitivity 25 (*) All other components within normal limits HIGH SENSITIVITY TROPONIN T (THIRD) 3 HRS AFTER INITIAL - Abnormal; Notable for the following components: ALESSIO High Sensitivity 23 (*) All other components within normal limits MAGNESIUM - Normal LIPASE - Normal PROTHROMBIN TIME - Normal PROCALCITONIN - Normal COVID AND INFLUENZA A/B AND RSV NAAT, EXPEDITED - Normal Narrative: This test has been authorized by FDA under an Emergency Use Authorization (EUA). URINALYSIS WI (more content not included)... Normal [facility] Lipase SerPl-cCncon 11-15-19 24 Lipase [Catalytic activity/Vol] 42 U/L Normal 16-61 [facility] Comment on above: Order Comment: Lenard jesus Type: BLOOD SPECIMENOrdering Facility: [facility] Address: [address] [place] [address] Performed By: #### 2 4323-8, 3040-3, 10160-4, 45849-2, [id number] ####[facility] LABORATORYCLIA [id number] [address] [place] Magnesium [facility]-ncon 11-14 Magnesium [Mass/Vol] 2.2 mg/dL Normal 1.7-2.3 [facility] Comment on above: Order Comment: Lenard jesus Type: BLOOD SPECIMENOrdering Facility: [facility] Address: [address] [place] [address] Performed By: #### 2 4323-8, 3040-3, 28950-2, 89678-0, [id number] ####[facility] LABORATORYCLIA [id number] [address] [place] [facility] Natriuretic peptide.B prohormone N-Terminal [Mass/Vol] 1221 pg/mL High <450 [facility] Comment on above: Order Comment: Lenard jesus Type: BLOOD SPECIMENOrdering Facility: [facility] Address: [address] [place] [address] Performed By: #### 2 4323-8, 3040-3, 13617-1, 86549-3, [id number] ####[facility] LABORATORYCLIA [id number] [address] [place] PT panel Coag (PPP)on 2023 INR Coag (PPP) [Relative time] 0.9 {INR} Normal 0.9-1.3 [facility] Comment on above: Order Comment: Lenard jesus Type: BLOOD SPECIMENOrdering Facility: [facility] Address: [address] [place] [address] Result Comment: Sarah min K Antagonist (VKA) Therapeutic Range: INR 2 to 3 (Target INR of 2.5) Note: For patients treated with VKA drugs, such as warfarin, the [employer] 2012 Guideline recommends a therapeutic INR range of 2 to 3 (target INR of 2.5). This recommendation includes high-risk patients with antiphospholipid syndrome with previous arterial or venous thromboembolism, current-generation mechanical or bioprosthetic aortic heart valve replacement. Note: Patients with mechanical aortic valve replacement and additional risk factors for thromboembolic events (atrial fibrillation, previous thromboembolism, LV dysfunction, hypercoagulable conditions) or an older generation mechanical AVR (i.e., ball in-Cage) or any mechanical MVR should have a INR therapeutic range of 2.5 to 3.5 (target INR of 3). Chan GH, et al. Chest 2012, 141:7S-47S Becca RA, et al. [facility] 2017, 70: 252-289 Performed By: #### 4 8065-7, 28480-9, 41921-2 ####[facility] LABORATORYCLIA [id number] [place] [address] [place] PT Coag (PPP) [Time] 10.2 s Normal 9.7-13.0 [facility] Comment on above: Order Comment: [facility] Type: BLOOD SPECIMENOrdering Facility: [facility] Address: [address] [place] [address] Performed By: #### 4 8065-7, 58657-8, 83059-5 ####[facility] LABORATORYCLIA [id number] [place] [id number] [place] Procalcitonin SerPl-mCncon 0 11-15-2023 Procalcitonin [Mass/Vol] 0.07 ng/mL Normal <0.09 [facility] Comment on above: Order Comment: Lenard jesus Type: BLOOD SPECIMENOrdering Facility: [facility] Address: [address] [place] [address] Result Comment: For a guided interpretation of test results, please visit the Change in Procalcitonin Calculator, [email or web address]. Performed By: #### 3 3959-8, [id number] ####KO LABORATORYCLIA [id number] [address] TSH SerPl-aCncon 11-15-2023 TSH Qn 1.470 m[IU]/L Normal 0.270-4.200 [facility] Comment on above: Order Comment: Speci men Type: BLOOD SPECIMENOrdering Facility: [facility] Address: [address] [place] [address] Performed By: #### 3 016-3, [id number] ####KO LABORATORYCLIA [id number] [address] Urinalysis complete panel (U )on 11-15-2023 Bilirubin Ql (U) Negative Normal Negative [facility] Comment on above: Order Comment: Speci men Type: URINE SPECIMENOrdering Facility: [facility] Address: [address] [place] [address] Performed By: #### 2 4356-8 ####KO LABORATORYCLIA [id number] [address] Clarity (Unsp spec) Clear Normal Clear [facility] Comment on above: Order Comment: Speci men Type: URINE SPECIMENOrdering Facility: [facility] Address: [address] [place] [address] Performed By: #### 2 4356-8 ####KO LABORATORYCLIA [id number] [address] Color (U) Yellow Normal Yellow [facility] Comment on above: Order Comment: Speci men Type: URINE SPECIMENOrdering Facility: [facility] Address: [address] [place] [address] Performed By: #### 2 4356-8 ####KO LABORATORYCLIA [id number] [address] Epithelial cells LM.HPF (Urine sed) [#/Area] Few Normal [facility] Comment on above: Order Comment: Speci men Type: URINE SPECIMENOrdering Facility: [facility] Address: [address] [place] [address] Performed By: #### 2 4356-8 ####KO LABORATORYCLIA [id number] [address] Glucose Test strip (U) [Mass/Vol] Negative Normal Negative [facility] Comment on above: Order Comment: Speci men Type: URINE SPECIMENOrdering Facility: [facility] Address: [address] [place] [address] Performed By: #### 2 4356-8 ####KO LABORATORYCLIA [id number] [place] [address] [place] Hemoglobin Ql (U) Negative Normal Negative [facility] Comment on above: Order Comment: Speci men Type: URINE SPECIMENOrdering Facility: [facility] Address: [address] [place] [address] Performed By: #### 2 4356-8 ####KO LABORATORYCLIA [id number] [address] [place] Ketones Ql (U) Negative Normal Negative [facility] Comment on above: Order Comment: Speci men Type: URINE SPECIMENOrdering Facility: [facility] Address: [address] [place] [address] Performed By: #### 2 4356-8 ####KO LABORATORYCLIA [id number] [address] Leukocyte esterase Test strip Ql (U) Negative Normal Negative [facility] Comment on above: Order Comment: Speci men Type: URINE SPECIMENOrdering Facility: [facility] Address: [address] [place] [address] Performed By: #### 2 4356-8 ####KO LABORATORYCLIA [id number] [address] [place] Nitrite Ql (U) Negative Normal Negative [facility] Comment on above: Order Comment: Speci men Type: URINE SPECIMENOrdering Facility: [facility] Address: [address] [place] [address] Performed By: #### 2 4356-8 ####KO LABORATORYCLIA [id number] [address] pH (U) 6.0 [pH] Normal 5.0-8.0 [facility] Comment on above: Order Comment: Speci men Type: URINE SPECIMENOrdering Facility: [facility] Address: [address] [place] [address] Performed By: #### 2 4356-8 ####KO LABORATORYCLIA [id number] [address] [place] Protein (U) [Mass/Vol] Negative Normal Negative [facility] Comment on above: Order Comment: Speci men Type: URINE SPECIMENOrdering Facility: [facility] Address: [address] [place] [address] Performed By: #### 2 4356-8 ####[facility] LABORATORYCLIA [id number] [address] [place] RBC LM.HPF (Urine sed) [#/Area] 0-3 /HPF Normal 0-3 /HPF [facility] Comment on above: Order Comment: Speci men Type: URINE SPECIMENOrdering Facility: [facility] Address: [address] [place] [address] Performed By: #### 2 4356-8 ####[facility] LABORATORYCLIA [id number] [address] Specific gravity (U) [Rel density] 1.020 Normal 1.005-1.030 [facility] Comment on above: Order Comment: Speci men Type: URINE SPECIMENOrdering Facility: [facility] Address: [address] [place] [address] Performed By: #### 2 4356-8 ####KO LABORATORYCLIA [id number] [address] Urobilinogen Ql (U) 0.2 EU/dL Normal 0.2-1.0 EU/dL [facility] Comment on above: Order Comment: Speci men Type: URINE SPECIMENOrdering Facility: [facility] Address: [address] [place] [address] Performed By: #### 2 4356-8 ####KO LABORATORYCLIA [id number] [place] [address] [place] WBC LM.HPF (Urine sed) [#/Area] 0-5 /HPF Normal 0-5 /HPF [facility] Comment on above: Order Comment: Speci men Type: URINE SPECIMENOrdering Facility: [facility] Address: [address] [place] [address] Performed By: #### 2 4356-8 ####[facility] LABORATORYCLIA [id number] [place] [address] [place] XR CHEST 1V FRONTAL PORTon 0 11-15-2023 XR CHEST 1V FRONTAL PORT * * *Final Report* * * DATE OF EXAM: Nov 15 2023 8:25PM MDX 5376 - XR CHEST 1V FRONTAL PORT / PROCEDURE REASON: Shortness of breath * * * * Physician Interpretation * * * * EXAMINATION: CHEST RADIOGRAPH (PORTABLE SINGLE VIEW AP) Exam Date/Time: 11/15/2023 8:25 PM CLINICAL HISTORY: Shortness of breath MQ: XCPR_5 Comparison: 07/17/2023 RESULT: Lines, tubes, and devices: Left-sided AICD is present without lead kinking or discontinuity. Lungs and pleura: No focal pulmonary opacity. No pleural effusion or pneumothorax. Cardiomediastinal silhouette: Stable cardiomediastinal silhouette. Other: No definite acute osseous abnormality. IMPRESSION: No acute cardiopulmonary disease. 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 Apprentice: PSCMykel Transcribe Date/Time: Nov 15 2023 8:27P Dictated by : OLIVERIO NOLASCO MD This examination was interpreted and the report reviewed and electronically signed by: OLIVERIO NOLASCO MD on Nov 15 2023 8:31PM EST [id number] Normal [facility] aPTT PPPon 11-15-2023 aPTT Coag (PPP) [Time] 22.7 s Low 23.0-32.4 [facility] Comment on above: Order Comment: Speci men Type: BLOOD SPECIMENOrdering Facility: [facility] Address: [address] [place] [address] Performed By: #### 4 8065-7, 93872-2, 92903-8 ####[facility] LABORATORYCLIA [id number] [place] [address] [place] [address] BRAIN WO IVCONon 11-01-[address] BRAIN WO IVCON * * *Final Report* * * DATE OF EXAM: Nov 01 2023 3:05PM [facility] 0504 - CT BRAIN WO IVCON / PROCEDURE REASON: multiple diagnoses * * * * Physician Interpretation * * * * EXAMINATION: CT BRAIN WO IVCON CLINICAL HISTORY: Speech difficulties, new onset headaches TECHNIQUE: Serial axial images without IV contrast were obtained from the vertex to the foramen magnum. MQ: CTBWO_3 CT Radiation dose: Integrated Dose-Length Product (DLP) for this visit = 706.22 mGy*cm CT Dose Reduction Employed: No dose reduction techniques were required COMPARISON: None. RESULT: Localizer images: Post-operative change: None. Acute change: No evidence of an acute infarct or other acute parenchymal process. Hemorrhage: No evidence of acute intracranial hemorrhage. ECASS hemorrhagic transformation score: Not Applicable Mass Lesion / Mass Effect: There is no evidence of an intracranial mass or extraaxial fluid collection. No significant mass effect. Chronic change: Arterial calcifications cavernous supraclinoid segments of intracranial internal carotid arteries. Mild degree supratentorial chronic microvascular ischemic changes. Axial image 10, focal area decreased attenuation right insular cortex most consistent with chronic microvascular ischemic changes. Parenchyma: Mild parenchymal volume loss. Ventricles: The ventricles are within normal limits of size and configuration for age and central atrophy. Paranasal sinuses and skull base: The visualized paranasal sinuses are grossly clear. The skull base and imaged soft tissues are unremarkable. IMPRESSION: No CT evidence of acute intracranial abnormality/hemorrhage Mild degree supratentorial chronic microvascular ischemic changes. Axial image 10, focal area decreased attenuation right insular cortex most consistent with chronic microvascular ischemic changes. Decision to perform follow-up and/or further imaging should be made on a neurological basis. 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 Transcribe Date/Time: Nov 01 2023 3:06P Dictated by : ERNESTO KLEIN MD This examination was interpreted and the report reviewed and electronically signed by: ERNESTO KLEIN MD on Nov 01 2023 3:11PM EST [id number] Normal [facility] CT Head WO contraston 2023 IMPRESSION: No CT evidence of acute intracranial abnormality/hemorrhage Mild degree supratentorial chronic microvascular ischemic changes. Axial image 10, focal area decreased attenuation right insular cortex most consistent with chronic microvascular ischemic changes. Decision to perform follow-up and/or further imaging should be made on a neurological basis. 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 Apprentice: KEYANA Transcribe Date/Time: Nov 01 2023 3:06P Dictated by : ERNESTO KLEIN MD This examination was interpreted and the report reviewed and electronically signed by: ERNESTO KLEIN MD on Nov 01 2023 3:11PM EST [facility] * * *Final Report* * * DATE OF EXAM: Nov 01 2023 3:05PM [facility] 0504 - CT BRAIN WO IVCON / PROCEDURE REASON: multiple diagnoses * * * * Physician Interpretation * * * * EXAMINATION: CT BRAIN WO IVCON CLINICAL HISTORY: Speech difficulties, new onset headaches TECHNIQUE: Serial axial images without IV contrast were obtained from the vertex to the foramen magnum. MQ: CTBWO_3 CT Radiation dose: Integrated Dose-Length Product (DLP) for this visit = 706.22 mGy*cm CT Dose Reduction Employed: No dose reduction techniques were required COMPARISON: None. RESULT: Localizer images: Post-operative change: None. Acute change: No evidence of an acute infarct or other acute parenchymal process. Hemorrhage: No evidence of acute intracranial hemorrhage. ECASS hemorrhagic transformation score: Not Applicable Mass Lesion / Mass Effect: There is no evidence of an intracranial mass or extraaxial fluid collection. No significant mass effect. Chronic change: Arterial calcifications cavernous supraclinoid segments of intracranial internal carotid arteries. Mild degree supratentorial chronic microvascular ischemic changes. Axial image 10, focal area decreased attenuation right insular cortex most consistent with chronic microvascular ischemic changes. Parenchyma: Mild parenchymal volume loss. Ventricles: The ventricles are within normal limits of size and configuration for age and central atrophy. Paranasal sinuses and skull base: The visualized paranasal sinuses are grossly clear. The skull base and imaged soft tissues are unremarkable. [facility] * * *Final Report* * * DATE OF EXAM: Nov 01 2023 3:05PM [facility] 0504 - CT BRAIN WO IVCON / PROCEDURE REASON: multiple diagnoses * * * * Physician Interpretation * * * * EXAMINATION: CT BRAIN WO IVCON CLINICAL HISTORY: Speech difficulties, new onset headaches TECHNIQUE: Serial axial images without IV contrast were obtained from the vertex to the foramen magnum. MQ: CTBWO_3 CT Radiation dose: Integrated Dose-Length Product (DLP) for this visit = 706.22 mGy*cm CT Dose Reduction Employed: No dose reduction techniques were required COMPARISON: None. RESULT: Localizer images: Post-operative change: None. Acute change: No evidence of an acute infarct or other acute parenchymal process. Hemorrhage: No evidence of acute intracranial hemorrhage. ECASS hemorrhagic transformation score: Not Applicable Mass Lesion / Mass Effect: There is no evidence of an intracranial mass or extraaxial fluid collection. No significant mass effect. Chronic change: Arterial calcifications cavernous supraclinoid segments of intracranial internal carotid arteries. Mild degree supratentorial chronic microvascular ischemic changes. Axial image 10, focal area decreased attenuation right insular cortex most consistent with chronic microvascular ischemic changes. Parenchyma: Mild parenchymal volume loss. Ventricles: The ventricles are within normal limits of size and configuration for age and central atrophy. Paranasal sinuses and skull base: The visualized paranasal sinuses are grossly clear. The skull base and imaged soft tissues are unremarkable. IMPRESSION IMPRESSION: No CT evidence of acute intracranial abnormality/hemorrhage Mild degree supratentorial chronic microvascular ischemic changes. Axial image 10, focal area decreased attenuation right insular cortex most consistent with chronic microvascular ischemic changes. Decision to perform follow-up and/or further imaging should be made on a neurological basis. 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 Apprentice: KEYANA Transcribe Date/Time: Nov 01 2023 3:06P Dictated by : ERNESTO KLEIN MD This examination was interpreted and the report reviewed and electronically signed by: ERNESTO KLEIN MD on Nov 01 2023 3:11PM EST [facility] Radiology Study observation (narrative) [facility] CT Head WO contrastOrdered B y: [facility] Provider on 11-01-2023 [facility] CBC W Auto Differential pane l (Bld)on 10-31-2023 Basophils (Bld) [#/Vol] 0.13 10*3/uL High [facility] Basophils/100 WBC (Bld) 1.2 % [facility] Differential cell count method Nom (Bld) Auto [facility] Eosinophils (Bld) [#/Vol] 0.34 10*3/uL NINF [facility] Eosinophils/100 WBC (Bld) 3.1 % [facility] Erythrocyte distribution width (RBC) [Ratio] 13.5 % 11.5 - 15.0 % [facility] Hematocrit (Bld) [Volume fraction] 41.9 % 36.0 - 46.0 % [facility] Hemoglobin (Bld) [Mass/Vol] 13.0 g/dL 11.5 - 15.5 g/dL [facility] Immature granulocytes (Bld) [#/Vol] 0.07 10*3/uL [facility] Immature granulocytes/100 WBC (Bld) 0.6 % [facility] Interpretation and review of laboratory results Abnormal [facility] Lymphocytes (Bld) [#/Vol] 4.05 10*3/uL High [facility] Lymphocytes/100 WBC (Bld) 37.4 % [facility] MCH (RBC) [Entitic mass] 28.8 pg 26.0 - 34.0 pg [facility] MCHC (RBC) [Mass/Vol] 31.0 g/dL 30.5 - 36.0 g/dL [facility] MCV (RBC) [Entitic vol] 92.7 fL 80.0 - 100.0 fL [facility] Monocytes (Bld) [#/Vol] 0.99 10*3/uL High [facility] Monocytes/100 WBC (Bld) 9.1 % [facility] Neutrophils (Bld) [#/Vol] 5.24 10*3/uL [facility] Neutrophils/100 WBC (Bld) 48.6 % [facility] Nucleated RBC (Bld) [#/Vol] [facility] Nucleated RBC/100 WBC (Bld) [Ratio] 0.0 % /100 WBC [facility] Platelet mean volume (Bld) [Entitic vol] 10.4 fL 9.0 - 12.7 fL [facility] Platelets (Bld) [#/Vol] 326 10*3/uL [facility] RBC (Bld) [#/Vol] 4.52 10*6/uL 3.90 - 5.2 0 m/uL [facility] WBC (Bld) [#/Vol] 10.82 10*3/uL [facility] CBC W Auto Differential pane l (Bld)on 10-15-2023 Basophils (Bld) [#/Vol] 0.11 10*3/uL High NINF [facility] Basophils/100 WBC (Bld) 1.1 % [facility] Differential cell count method Nom (Bld) Auto [facility] Eosinophils (Bld) [#/Vol] 0.30 10*3/uL [facility] Eosinophils/100 WBC (Bld) 3.0 % [facility] Erythrocyte distribution width (RBC) [Ratio] 13.4 % 11.5 - 15.0 % [facility] Hematocrit (Bld) [Volume fraction] 40.6 % 36.0 - 46.0 % [facility] Hemoglobin (Bld) [Mass/Vol] 12.7 g/dL 11.5 - 15.5 g/dL [facility] Immature granulocytes (Bld) [#/Vol] 0.07 10*3/uL [facility] Immature granulocytes/100 WBC (Bld) 0.7 % [facility] Interpretation and review of laboratory results Abnormal [facility] Lymphocytes (Bld) [#/Vol] 3.14 10*3/uL [facility] Lymphocytes/100 WBC (Bld) 31.7 % [facility] MCH (RBC) [Entitic mass] 29.4 pg 26.0 - 34.0 pg [facility] MCHC (RBC) [Mass/Vol] 31.3 g/dL 30.5 - 36.0 g/dL [facility] MCV (RBC) [Entitic vol] 94.0 fL 80.0 - 100.0 fL [facility] Monocytes (Bld) [#/Vol] 0.72 10*3/uL [facility] Monocytes/100 WBC (Bld) 7.3 % [facility] Neutrophils (Bld) [#/Vol] 5.55 10*3/uL [facility] Neutrophils/100 WBC (Bld) 56.2 % [facility] Nucleated RBC (Bld) [#/Vol] [facility] Nucleated RBC/100 WBC (Bld) [Ratio] 0.0 % /100 WBC [facility] Platelet mean volume (Bld) [Entitic vol] 10.4 fL 9.0 - 12.7 fL [facility] Platelets (Bld) [#/Vol] 353 10*3/uL [facility] RBC (Bld) [#/Vol] 4.32 10*6/uL 3.90 - 5.2 0 m/uL [facility] WBC (Bld) [#/Vol] 9.89 10*3/uL [facility] ICD REMOTE CHECKon 4 AV Delay Adaptive Paced Minimum (ms) 130 ms [facility] AV Delay Adaptive Sensed Minimum (ms) 80 ms [facility] AV Delay Adaptive Status ENABLED [facility] Battery Voltage 3.09 V [facility] Luis LV Pacing Amplitude (volts) 1.0 V [facility] Luis LV Pacing Polarity BI [facility] Luis LV Pacing Pulse Width (ms) 0.4 ms [facility] Luis RA Pacing Amplitude (volts) 3.5 V [facility] Luis RA Pacing Polarity BI [facility] Luis RA Pacing Pulse Width (ms) 0.4 ms [facility] Luis RA Sensing Amplitude (mvolts) 0.3 mV [facility] Luis RA Sensing Blanking Period (ms) 150 ms [facility] Luis RA Sensing Polarity BI [facility] Luis RA Sensing Refractory Period (ms) Auto [facility] Luis RV Pacing Amplitude (volts) 3.5 V [facility] Luis RV Pacing Polarity BI [facility] Luis RV Pacing Pulse Width (ms) 0.4 ms [facility] Luis RV Sensing Amplitude (mvolts) 0.3 mV [facility] Luis RV Sensing Blanking Period (ms) 230 ms [facility] Luis RV Sensing Polarity BI [facility] Detection Configuration (Vent) 1 - Zone [facility] ICD AFIB DetectionStatus ENABLED [facility] ICD ATAF DetectionInterval ms 350 ms [facility] ICD ATAF DetectionStatus ENABLED [facility] ICD FastVT DetectionStatus DISABLED [facility] ICD-ADLRATE_BPM 95 {beats}/min [facility] ICD-AMS EPISODES 171 {beats}/min [facility] ICD-ATP Episodes (Vent) 0 [facility] ICD-ATRIALFIBRILLATION 0 [facility] ICD-Device Mfg MDT [facility] ICD-LEADIMPEDANCEATRIA L 589 ohm [facility] ICD-Percent Pacing (Atrial) 0.07 % [facility] ICD-Percent Pacing (Vent) 6.67 % [facility] ICD-PMT Intervention Enabled [facility] ICD-PVC Intervention Enabled [facility] ICD-Rate Modulation Acceleration Reaction 30 s [facility] ICD-Rate Modulation Deceleration Exercise [facility] ICD-Rate Modulation Edgar 3 [facility] ICD-Rate Modulation Threshold Low [facility] ICD-Shocks Aborted (Vent) 0 [facility] [id number] 0 [facility] ICD-SHOCKSABORTED 0 [facility] ICD-SHOCKSDELIVEREDVEN TRICULAR 0 [facility] ICD-Ventricular Fibrillation 0 [facility] ICD-VVDELAY_MS 0 ms [facility] Lead Impedance (LV) 437 ohm [facility] Lead Impedance (RV) 380 ohm [facility] Lead Impedance High Voltage 73 ohm [facility] Lead1 Mfg MDT [facility] Lead2 Mfg MDT [facility] Lead3 Mfg MDT [facility] Location LV [facility] Location RA [facility] Location RV [facility] Lower Rate (bpm) 45 {beats}/min [facility] LV PACING % 97.85 % [facility] Max Sensor Rate (bpm) 120 {beats}/min [facility] MDT_PROG_TACHY_ZONE_DE TECTIONS_STATUS ENABLED [facility] Model [id number] [place] XT HF Quad CUT PLUG PACKER-D MRI [facility] Model 4798 Attain Stabilit y Quad [facility] Model 5076 [employer] Novus [facility] Model 6935M [employer] Quatt[employer] Secure S [facility] Pacing Mode DDD [facility] Serial Number [id number] [facility] Serial Number [id number] [facility] Serial Number [id number] [facility] Serial Number [id number] [facility] Test Charge Energy 40.[address] [facility] Test Charge Time 0 s [facility] Therapy Status (Vent) Enabled [facility] Thresh LV Capture Amplitude (volts) 0.375 V [facility] Thresh LV Capture Duration (ms) 0.4 ms [facility] Thresh RA Capture Amplitude (volts) 0.375 V [facility] Thresh RA Capture Duration (ms) 0.4 ms [facility] Thresh RA Sensing Amplitude (mvolts) 5.0 mV [facility] Thresh RV Capture Amplitude (VOLTS) 0.625 V [facility] Thresh RV Capture Duration (MS) 0.4 ms [facility] Thresh RV Sensing Amplitude (MVOLTS) 24.5 mV [facility] Tracking Rate (bpm) 130 {beats}/min [facility] VF Zone Detection Interval 320 ms [facility] VF Zone Therapy Configuration 1 ATP(s) + 6 Shock(s) [facility] 09/28/2023 Formattin g of this note might be different from the original. MULTI CHAMBER ICD REMOTE EVALUATION: PRESENTING EGM: /LVP BATTERY STATUS: Estimated time remaining to YOLI is 11.7 years COUNTERS SINCE: 08/07/23 ATRIAL ARRHYTHMIAS: There have been no atrial detections. VENTRICULAR ARRHYTHMIAS: There have been no ventricular detections. LEAD MEASUREMENTS: Sensing is appropriate. Review of the lead impedance trends are normal. OTHER DIAGNOSTICS: RA pacing <0.1%. total V pacing 97.9%. Adaptive CUT PLUG PACKER shows BiV pacing 6.8%, LV only pacing 93.2%. FOLLOW UP: Continue 3 month remote transmissions and yearly in-clinic interrogations. Amy Louis RN NOTE TO PROVIDERS: CARD Flowsheets contain detailed device programming and testing data. Paceart/Interrogation PDF can be found under CARDIAC DATA AND REPORT, Scanned Documents section. [facility] No Panel Informationon 09-27 BLANK _ [facility] ICD-ATRIALTACHYCARDIA 0 [facility] ICD-Fast Ventricular Tachycardia 0 [facility] Implant Date 2023 [facility] 09-25-2023 TIMN Telephone (MEPRAD) ----- SANDRA SCHMITZ ([id number]) 1945 [place] Date Time Provider Department 09/25/23 THUY AGUIRRE During your visit today, we recorded the following information about you: Thuy Aguirre, MELI.DIRECTOR OF DONOR RELATIONS 09/25/2023 12:12 PM Signed Called and spoke with patient to review recent cholesterol results. Her LDL remains elevated at 120. I again recommended treatment with either pravastatin, PCSK9i, or bempedoic acid given her known nonobstructive CAD. At this time she is not ready to start lipid-lowering therapy as she feels she has too much going on and would like to do some more research before deciding on an option. She will let us know once she has made her decision. She additionally has stopped the Jardiance on Sunday as she felt it was causing tingling in her feet and a headache. She resumed Lasix. Her symptoms have resolved since stopping the Jardiance. She is scheduled to see advanced heart failure Dr. Wells 10/01 virtually. Thuy Aguirre APRN.DIRECTOR OF DONOR RELATIONS Allergies As of Date: 09/25/2023 Noted Allergy Reaction EMILIO INHIBITORS 05/03/2020 5 - Intolerance Comments: Short of breath, symptoms of heart failure BETA-BLOCKERS (BETA-ADRENERGIC BL*05/03/2020 5 - Intolerance Comments: Short of breath, symptoms of heart failure AUGMENTIN (AMOXICILLIN-POT CLAVUL*01/23/2013 8 - GI Upset CODEINE 10/24/2012 1 - Mental Status Change Comments: Patient felt like she was made out of lead LIPITOR (ATORVASTATIN) 05/05/2020 17 - Myalgia Comments: Muscle aches SULFA (SULFONAMIDE ANTIBIOTICS) 04/28/2020 5 - Intolerance AMLODIPINE 04/28/2020 5 - Intolerance Comments: lightheaded Date Reviewed: 09/24/2023 Reviewed by: Sincere Berger, RN - Fully Assessed Reason for Visit: Results [95] Cmt: FLP Primary Visit Diagnosis:Acute on chronic systolic CHF (congestive heart failure) (HCC) [I50.23] Other Visit Diagnosis:Dilated cardiomyopathy (HCC) [I42.0] Order(s):metoprolol succinate ER (TOPROL XL) 25 mg 24 hr tabletTake 0.5 tablets by mouth daily at bedtime.Disp: 45 tabletRfl: 3 Prescriptions as of 09/25/2023 - metoprolol succinate ER (TOPROL XL) 25 mg 24 hr tablet Take 0.5 tablets by mouth daily at bedtime. - omeprazole (PRILOSEC) 20 mg capsule Take 1 capsule by mouth daily before breakfast. 1/2 hr before meal. - losartan (COZAAR) 25 mg tablet Take 1 tablet by mouth once daily. - empagliflozin (JARDIANCE) 10 mg tablet Take 1 tablet by mouth daily with breakfast. - levothyroxine (LEVOXYL) 88 mcg tablet Take 1 tablet by mouth daily before breakfast. - furosemide (LASIX) 20 mg tablet Take 1 tablet by mouth once daily. - acetaminophen (TYLENOL) 500 mg tablet Take 2 tablets by mouth every 8 hours as needed for pain. - cyanocobalamin (VITAMIN B-12) 1,000 mcg tab Take 1 tablet by mouth once daily. - Cholecalciferol, Vitamin D3, 50 mcg (2,000 unit) cap Take 2 capsules by mouth once daily. - aspirin, enteric coated (ECOTRIN LOW STRENGTH) 81 mg EC tablet Take 1 tablet by mouth once daily. Facility-Administered Medications as of 09/25/2023 - perflutren lipid microspheres 1.3 mL in NaCl (PF) 0.9% 10 mL injection (DEFINITY) - sodium chloride 0.9 % (flush) 10 mL (BD POSIFLUSH) Problem List As Of Date 09/25/2023 Noted Resolved IBS (irritable bowel syndrome) [K58.9] 01/23/2013 Palpitations [R00.2] 12/16/2014 Obesity, Class I, BMI 30-34.9 [E66.9] 03/10/2020 Shortness of breath [R06.02] 05/03/2020 06/14/2020 Acute on chronic systolic CHF (congestive heart*05/03/2020 Homozygous Factor V Leiden mutation (HCC) [D68.*05/03/2020 Hypothyroidism [E03.9] 01/24/2018 Chest pain [R07.9] 05/03/2020 06/14/2020 Post-operative state [Z98.890] 05/24/2020 06/14/2020 Rectocele [N81.6] 05/25/2020 Cystocele, midline [N81.11] 05/25/2020 Aspiration pneumonia (HCC) [J69.0] 05/30/2020 09/22/2020 Acute acalculous cholecystitis [K81.0] 05/30/2020 Primary hypertension [I10] 06/14/2020 Acute idiopathic gout involving toe of left cristal*09/22/2020 Diverticulitis [K57.92] 09/29/2020 Hypokalemia [E87.6] 09/29/2020 Hospital discharge follow-up [Z09] 12/06/2020 Tubular adenoma of colon [D12.6] 12/09/2020 Mixed hyperlipidemia [E78.2] 12/29/2020 Chronic pain of right ankle [M25.571, G89.29] 12/29/2020 Kidney insufficiency [N28.9] 12/29/2020 Chronic systolic congestive heart failure (HCC)*02/14/2021 Valvular heart disease [I38] 04/06/2021 Colon cancer screening [Z12.11] 04/06/2021 Left bundle branch block [I44.7] 05/23/2021 Left shoulder pain [M25.512] 07/11/2021 Lateral epicondylitis of left elbow [M77.12] 07/11/2021 Cardiomegaly [I51.7] 02/13/2022 Chronic bilateral thoracic back pain [M54.6, G8*07/18/2022 Rib pain on right side [R07.81] 07/18/2022 Somatic dysfunction of rib [M99.08] 07/18/2022 Somatic dysfunction of spine, thoracic [M99.02] 07/18/2022 Somatic dysfunction of spine, cervical (more content not included)... Normal [facility] XR Foot - left AP and Latera l and obliqueon 09-13-2023 IMPRESSION: No acute osseous abnormality 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 Apprentice: EKYANA Transcribe Date/Time: Sep 13 2023 11:53A Dictated by : KIRA MALONE MD This examination was interpreted and the report reviewed and electronically signed by: KIRA MALONE MD on Sep 13 2023 11:55AM [facility] DIVISION OF RADIOLOGY * * *Final Report* * * DATE OF EXAM: Sep 13 2023 11:51AM WOX [id number] - XR FOOT 3V AP/LAT/OBL LT / PROCEDURE REASON: multiple diagnoses * * * * Physician Interpretation * * * * EXAMINATION: XR FOOT 3V AP/LAT/OBL LT CLINICAL HISTORY: Left foot pain and swelling Technique: XR FOOT 3V AP/LAT/OBL LT -- LEFT with 3 views on 3 images Comparison: X-ray left toes 08/02/2020 RESULT: No acute fracture or dislocation. Postoperative changes from a left first metatarsal osteotomy with 2 screws in the metatarsal shaft. Fusion of the PIP joint of the left second toe. No periarticular erosions. DIVISION OF RADIOLOGY Provider, Nasrin Warren - 09/13/2023 * * *Final Report* * * DATE OF EXAM: Sep 13 2023 11:51AM WOX [id number] - XR FOOT 3V AP/LAT/OBL LT / PROCEDURE REASON: multiple diagnoses * * * * Physician Interpretation * * * * EXAMINATION: XR FOOT 3V AP/LAT/OBL LT CLINICAL HISTORY: Left foot pain and swelling Technique: XR FOOT 3V AP/LAT/OBL LT -- LEFT with 3 views on 3 images Comparison: X-ray left toes 08/02/2020 RESULT: No acute fracture or dislocation. Postoperative changes from a left first metatarsal osteotomy with 2 screws in the metatarsal shaft. Fusion of the PIP joint of the left second toe. No periarticular erosions. 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 Transcribe Date/Time: Sep 13 2023 11:53A Dictated by : KIRA MALONE MD This examination was interpreted and the report reviewed and electronically signed by: KIRA MALONE MD on Sep 13 2023 11:55AM EST [facility] Radiology Study observation (narrative) [facility] XR Foot - left AP and Latera l and obliqueOrdered By: Ccf Provider on 09-13-2023 [facility] CR - History AND Physicalon 08-29-2023 CR - History & Physical [facility] Cardiac Rehab [address] [place] [address] CR - History Physical MR#: [id number] Acct: [id number] Name: SANDRA SCHMITZ Rep #: [id number] : 1945 78 From: Duran KEYS, RVT PCP: Dr. Mandeep Houser, DO DOS: 08/29/23 CR - History Physical General Arrival date:: 08/29/23 Arrival time:: 14:17 Date of Referral:: 08/07/23 Date of CR Evaluation:: 08/29/23 Referring Physician: Pili Wells Primary Diagnosis: CHF with EF History of Present Cardiac Event Onset Date Heart Failure EF <35%:: Yes Sleep Disorder Evaluation Hx of Sleep Apnea: No Do you snore loudly (louder than talking or can be heard through closed doors)?: No Do you often feel tired/ fatigued/ sleepy during daytime?: No Has anyone observed you stop breathing during sleep?: No History of Hypertension (for STOP score): Yes STOP Results: Negative Advanced Directives Advanced Directives Power of Cut Tobacco Bulker: Yes Living Will: Yes Advance Directives Information Provided: No Advance Directives on File: No DNR Order?:: No Past Medical History Covid-19 Screening Physicial Symptoms Other Clinical Concerns Exposure Risk Pertinent Comorbidities 65 years or older:: Yes Has a chronic lung disease or moderate to severe asthma:: Yes Has a serious heart condition:: Yes Social History Smoking History Smoking Status: Former smoker Years Smokin Packs Smoked per Day: 1 (stopped about 20 years ago) Alcohol Use Alcohol Usage: No Occupation Occupation (List type of work in comments):: Retired Hobbies, Recreation, Social Activities Hobbies: Sewing and Other Recreational Activities: I am able to engage in all my recreational activities Social Environment Status Marital Status: Current Living Arrangements Living Environment:: Family Children How many children do you have?: 4 Do any of your children live nearby?: Yes Safety Do you feel safe in your surroundings?: Yes Assistance Do you need any assistance at home?: no Review of Systems Review of Systems Hints Review of Present Symptoms: Reports Dizziness/Lightheadedness , Appetite - Normal and Appetite - Special Diet; Denies Shortness of Breath at Rest, Shortness of Breath with Exertion, PVD, Operative Discomfort, Angina, Wound Healing, Fatigue, Heart Arrhythmia/Irregularities , Sleep - Normal or Sexual Changes Pain Is Patient Pain Free?: Yes Risk Factor Assessment Chief Complaint Chief Complaint: CHF with EF <35 % Vital Signs Pulse Ox: 95 Blood Pressure: 125/82 Pulse Pulse Rate: 91 Hypertension Blood Pressure Sitting - Right Arm: 125/82 Obesity Height: 5 ft 3 in Weight:: 190 lb Weight in Pounds: 190.0 lbs Body Mass Index (BMI): 33.6 Nutritional Referral for Obesity: No Physical Inactivity Physical Inactivity: Recreational activity Risk Stratification Risk Guidelines: Lowest Risk: Risk Factor for Smoking, Moderate Risk: Risk Factor for Diabetes, Risk Factor for Sedentary Lifestyle and Risk Factor for Depression and Highest Risk: Risk Factor for Dyslipidemia, Risk Factor for Obesity and Risk Factor for Hypertension For Smoking Smoking Risk Guidelines For Dyslipidemia Dyslipidemia Risk Guidelines For Diabetes Mellitus Diabetes Risk Guidelines For Obesity/Overweight Obesity/Overweight Risk Guidelines For Hypertension Hypertension Risk Guidelines For Sedentary Lifestyle Sedentary Lifestyle Risk Guidelines For Depression Depression Risk Guidelines Motivation Motivation to Participate On a scale of 1 to 10, how prepared are you to commit to attending program?: 10 What do you see as barriers to successfully being able to complete the program?: nothing What do you see as the benefits of succesfully completing the program? In other words, what do you hope to get out of participating in the program?: stronger Are there issues you are dealing with that will interfere with completing the program?: no Do you have a spouse or signficant other, family or friends who will help support you to complete the program?: yes 08/29/231536 Date Duran Currie BS, RVT Outcome assessment reviewed. Exercise plan approved as documented. Treatment plan and goals support patient needs/abilities. Continue with current plan. I certify the patient demonstrates improvement and remains willing and capable of participation. the patient continues to benefit from cardiac rehab services/training. The patient may continue at current intensity, endurance and modality and progress per protocol. 08/29/231939 Cosigner Signature: Date Josh Britton MD CC: Signed Normal [facility] UA DIP, URINE (POC)on 2023 BILIRUBIN UA (POCT) Negative Negative [facility] CLARITY UA (POCT) Clear [facility] COLOR [facility]A ([facility]) Yellow [facility] GLUCOSE UA (POCT) Negative Negative mg/dL [facility] Hemoglobin Ql (U) Negative Negative [facility] KETONE UA (POCT) Negative Negative mg/dL [facility] LEUKOCYTES UA (POCT) [facility] NITRITE UA (POCT) Negative Negative [facility] PH UA (POCT) 6.5 4.5 - 8.0 [facility] Protein Ql (U) Negative Negative mg/dL [facility] SPECIFIC GRAVITY UA (POCT) 1.010 1.005 - 1.030 [facility] UROBILINOGEN UA (POCT) 0.2 E.U./dL Jeanette l E.U./dL [facility] ICD CLINIC CHECKon 4 AV Delay Adaptive Paced Minimum (ms) 100 ms [facility] AV Delay Adaptive Sensed Minimum (ms) 80 ms [facility] AV Delay Adaptive Status ENABLED [facility] Battery Voltage 3.11 V [facility] Luis LV Pacing Amplitude (volts) 2.5 V [facility] Luis LV Pacing Polarity BI [facility] Luis LV Pacing Pulse Width (ms) 0.4 ms [facility] Luis RA Pacing Amplitude (volts) 3.5 V [facility] Luis RA Pacing Polarity BI [facility] Luis RA Pacing Pulse Width (ms) 0.4 ms [facility] Luis RA Sensing Amplitude (mvolts) 0.3 mV [facility] Luis RA Sensing Blanking Period (ms) 150 ms [facility] Luis RA Sensing Polarity BI [facility] Luis RA Sensing Refractory Period (ms) Auto [facility] Luis RV Pacing Amplitude (volts) 3.5 V [facility] Luis RV Pacing Polarity BI [facility] Luis RV Pacing Pulse Width (ms) 0.4 ms [facility] Luis RV Sensing Amplitude (mvolts) 0.3 mV [facility] Luis RV Sensing Blanking Period (ms) 230 ms [facility] Ulis RV Sensing Polarity BI [facility] Detection Configuration (Vent) 1 - Zone [facility] ICD AFIB DetectionStatus ENABLED [facility] ICD ATAF DetectionInterval ms 350 ms [facility] ICD ATAF DetectionStatus ENABLED [facility] ICD FastVT DetectionStatus DISABLED [facility] ICD-ADLRATE_BPM 95 {beats}/min [facility] ICD-AMS EPISODES 171 {beats}/min [facility] ICD-ATP Episodes (Vent) 0 [facility] ICD-ATRIALFIBRILLATION 0 [facility] ICD-Device Mfg MDT [facility] ICD-LEADIMPEDANCEATRIA L 551 ohm [facility] ICD-Percent Pacing (Atrial) 0.09 % [facility] ICD-Percent Pacing (Vent) 4.41 % [facility] ICD-PMT Intervention Enabled [facility] ICD-PVC Intervention Enabled [facility] ICD-Rate Modulation Acceleration Reaction 30 s [facility] ICD-Rate Modulation Deceleration Exercise [facility] ICD-Rate Modulation Edgar 3 [facility] ICD-Rate Modulation Threshold Low [facility] ICD-Rhythm Normal Sinus Rhythm [facility] ICD-Shocks Aborted (Vent) 0 [facility] ETA-TLMDXA-TAGAFOVWB 0 [facility] ICD-SHOCKSABORTED 0 [facility] ICD-SHOCKSDELIVEREDVEN TRICULAR 0 [facility] ICD-Ventricular Fibrillation 0 [facility] ICD-VVDELAY_MS 0 ms [facility] Lead Impedance (LV) 418 ohm [facility] Lead Impedance (RV) 361 ohm [facility] Lead Impedance High Voltage 61 ohm [facility] Lead1 Mfg MDT [facility] Lead2 Mfg MDT [facility] Lead3 Mfg MDT [facility] Location LV [facility] Location RA [facility] Location RV [facility] Lower Rate (bpm) 45 {beats}/min [facility] LV PACING % 98.08 % [facility] Max Sensor Rate (bpm) 120 {beats}/min [facility] MDT_PROG_TACHY_ZONE_DE TECTIONS_STATUS ENABLED [facility] Model [id number] [place] XT HF Quad CUT PLUG PACKER-D MRI [facility] Model 4798 Attain Stabilit y Quad MRI SureNvan [facility] Model 5076 CapSureFix Novus [facility] Model 6935M Sprint Quattro Secure S [facility] Pacemaker Dependent? NO [facility] Pacing Mode DDD [facility] Serial Number [id number] [facility] Serial Number [id number] [facility] Serial Number [id number] [facility] Serial Number [id number] [facility] Test Charge Energy 40.[address] [facility] Test Charge Time 0 s [facility] Therapy Status (Vent) Enabled [facility] Thresh LV Capture Amplitude (volts) 0.75 V [facility] Thresh LV Capture Duration (ms) 0.40 ms [facility] Thresh RA Capture Amplitude (volts) 0.50 V [facility] Thresh RA Capture Duration (ms) 0.40 ms [facility] Thresh RA Sensing Amplitude (mvolts) 4.4 mV [facility] Thresh RV Capture Amplitude (VOLTS) 0.75 V [facility] Thresh RV Capture Duration (MS) 0.40 ms [facility] Thresh RV Sensing Amplitude (MVOLTS) 20.0 mV [facility] Tracking Rate (bpm) 130 {beats}/min [facility] VF Zone Detection Interval 320 ms [facility] VF Zone Therapy Configuration 1 ATP(s) + 6 Shock(s) [facility] No Panel Informationon 08-06 BLANK _ [facility] ICD-Fast Ventricular Tachycardia 0 [facility] Implant Date 2023 [facility] CBC W Auto Differential pane l (Bld)on 07-24-2023 Basophils (Bld) [#/Vol] 0.13 10*3/uL High <0.11 k/uL [facility] Basophils/100 WBC (Bld) 1.0 % [facility] Differential cell count method Nom (Bld) Auto [facility] Eosinophils (Bld) [#/Vol] 0.46 10*3/uL High <0.46 k/uL [facility] Eosinophils/100 WBC (Bld) 3.4 % [facility] Erythrocyte distribution width (RBC) [Ratio] 15.0 % 11.5 - 15.0 % [facility] Hematocrit (Bld) [Volume fraction] 40.8 % 36.0 - 46.0 % [facility] Hemoglobin (Bld) [Mass/Vol] 12.9 g/dL 11.5 - 15.5 g/dL [facility] Immature granulocytes (Bld) [#/Vol] 0.17 10*3/uL High <0.10 k/uL [facility] Immature granulocytes/100 WBC (Bld) 1.3 % [facility] Lymphocytes (Bld) [#/Vol] 3.09 10*3/uL 1.00 - 4.00 k/uL [facility] Lymphocytes/100 WBC (Bld) 23.0 % [facility] MCH (RBC) [Entitic mass] 29.9 pg 26.0 - 34.0 pg [facility] MCHC (RBC) [Mass/Vol] 31.6 g/dL 30.5 - 36.0 g/dL [facility] MCV (RBC) [Entitic vol] 94.7 fL 80.0 - 100.0 fL [facility] Monocytes (Bld) [#/Vol] 1.15 10*3/uL High <0.87 k/uL [facility] Monocytes/100 WBC (Bld) 8.6 % [facility] Neutrophils (Bld) [#/Vol] 8.45 10*3/uL High 1.45 - 7.50 k/uL [facility] Neutrophils/100 WBC (Bld) 62.7 % [facility] Nucleated RBC (Bld) [#/Vol] <0.01 k/uL [facility] Nucleated RBC/100 WBC (Bld) [Ratio] 0.0 /100 WBC [facility] Platelet mean volume (Bld) [Entitic vol] 10.8 fL 9.0 - 12.7 fL [facility] Platelets (Bld) [#/Vol] 230 10*3/uL 150 - 400 k/uL [facility] RBC (Bld) [#/Vol] 4.31 10*6/uL 3.90 - 5.2 0 m/uL [facility] WBC (Bld) [#/Vol] 13.45 10*3/uL High 3.70 - 11.00 k/uL [facility] Comprehensive metabolic 2000 panelon 07-24-2023 Albumin [Mass/Vol] 4.1 g/dL 3.9 - 4.9 g/dL [facility] ALP [Catalytic activity/Vol] 66 U/L 34 - 123 U/L [facility] ALT [Catalytic activity/Vol] 11 U/L 7 - 38 U/L [facility] Anion gap [Moles/Vol] 12 mmol/L 9 - 18 mmol/L [facility] AST [Catalytic activity/Vol] 19 U/L 13 - 35 U/L [facility] Bilirubin [Mass/Vol] 0.4 mg/dL 0.2 - 1 .3 mg/dL [facility] Calcium [Mass/Vol] 9.9 mg/dL 8.5 - 10. 2 mg/dL [facility] Chloride [Moles/Vol] 103 mmol/L 97 - 10 5 mmol/L [facility] CO2 [Moles/Vol] 26 mmol/L 22 - 30 mmol/L [facility] Creatinine [Mass/Vol] 1.08 mg/dL High 0.58 - 0.96 mg/dL [facility] Estimated Glomerular Filtration Rate 53 mL/min/1.73m Low >=60 mL/min/1.73 m [facility] Glucose [Mass/Vol] 89 mg/dL 74 - 99 mg/dL [facility] Potassium [Moles/Vol] 4.5 mmol/L 3.7 - 5.1 mmol/L [facility] Protein [Mass/Vol] 7.5 g/dL 6.3 - 8.0 g/dL [facility] Sodium [Moles/Vol] 141 mmol/L 136 - 144 mmol/L [facility] Urea nitrogen [Mass/Vol] 32 mg/dL High 7 - 21 mg/dL [facility] T3 FREE BLDon 07-24-2023 Free T3 [Mass/Vol] 2.0 pg/mL Low 2.3 - 4.1 pg/mL [facility] T4 FREE/FREE THYROXon 2023 Free T4 [Mass/Vol] 1.5 ng/dL 0.9 - 1.7 ng/dL [facility] TSH BLDon 07-24-2023 TSH Qn 2.430 m[IU]/L 0.270 - 4.200 mIU/L [facility] VITAMIN B12 BLOODon 07-24-19 Cobalamin (Vitamin B12) [Mass/Vol] 520 pg/mL 232 - 1,245 pg/mL [facility] CBC W Auto Differential pane l (Bld)on 07-18-2023 Basophils (Bld) [#/Vol] 0.10 10*3/uL Normal <0.11 [facility] Comment on above: Order Comment: Speci men Type: BLOOD SPECIMENOrdering Facility: [facility] Address: [address] [place] [address] Performed By: #### 5 7021-8 ####[facility]ORATORYCLIA [id number] [place] [address] [place] Basophils/100 WBC (Bld) 1.1 % Normal [facility] Comment on above: Order Comment: Speci men Type: BLOOD SPECIMENOrdering Facility: [facility] Address: [address] [place] [address] Performed By: #### 5 7021-8 ####[facility]ORYCLIA [id number] [place] [id number] [place] Differential cell count method Nom (Bld) Auto Normal [facility] Comment on above: Order Comment: Speci men Type: BLOOD SPECIMENOrdering Facility: [facility] Address: [address] [place] [address] Performed By: #### 5 7021-8 ####[facility] LABORATORYCLIA [id number] [place] [id number] [place] Eosinophils (Bld) [#/Vol] 0.20 10*3/uL Normal <0.46 [facility] Comment on above: Order Comment: Speci men Type: BLOOD SPECIMENOrdering Facility: [facility] Address: [address] [place] [address] Performed By: #### 5 7021-8 ####[facility] LABORATORYCLIA [id number] [place] [id number] [place] Eosinophils/100 WBC (Bld) 2.1 % Normal [facility] Comment on above: Order Comment: Speci men Type: BLOOD SPECIMENOrdering Facility: [facility] Address: [address] [place] [address] Performed By: #### 5 7021-8 ####[facility] LABORATORYCLIA [id number] [place] [address] [place] Erythrocyte distribution width (RBC) [Ratio] 15.1 % High 11.5-15.0 [facility] Comment on above: Order Comment: Speci men Type: BLOOD SPECIMENOrdering Facility: [facility] Address: [address] [place] [address] Performed By: #### 5 7021-8 ####[facility] LABORATORYCLIA [id number] [place] [address] [place] Hematocrit (Bld) [Volume fraction] 36.1 % Normal 36.0-46.0 [facility] Comment on above: Order Comment: Speci men Type: BLOOD SPECIMENOrdering Facility: [facility] Address: [address] [place] [address] Performed By: #### 5 7021-8 ####[facility]ORYCLIA [id number] [place] [id number] [place] Hemoglobin (Bld) [Mass/Vol] 11.7 g/dL Normal 11.5-15.5 [facility] Comment on above: Order Comment: Speci men Type: BLOOD SPECIMENOrdering Facility: [facility] Address: [address] [place] [address] Performed By: #### 5 7021-8 ####[facility]ATORYCLIA [id number] [place] [address] [place] Immature granulocytes (Bld) [#/Vol] 0.05 10*3/uL Normal <0.10 [facility] Comment on above: Order Comment: Speci men Type: BLOOD SPECIMENOrdering Facility: [facility] Address: [address] [place] [address] Performed By: #### 5 7021-8 ####[facility]ATORYCLIA [id number] [place] [address] [place] Immature granulocytes/100 WBC (Bld) 0.5 % Normal [facility] Comment on above: Order Comment: Speci men Type: BLOOD SPECIMENOrdering Facility: [facility] Address: [address] [place] [address] Performed By: #### 5 7021-8 ####[facility]ATORYCLIA [id number] [place] [address] [place] Lymphocytes (Bld) [#/Vol] 3.38 10*3/uL Normal 1.00-4.00 [facility] Comment on above: Order Comment: Speci men Type: BLOOD SPECIMENOrdering Facility: [facility] Address: [address] [place] [address] Performed By: #### 5 7021-8 ####[facility]ORATORYCLIA [id number] [address] [place] Lymphocytes/100 WBC (Bld) 36.1 % Normal [facility] Comment on above: Order Comment: Speci men Type: BLOOD SPECIMENOrdering Facility: [facility] Address: [address] [place] [address] Performed By: #### 5 7021-8 ####[facility]ORATORYCLIA [id number] [place] [address] [place] MCH (RBC) [Entitic mass] 30.0 pg Normal 26.0-34.0 [facility] Comment on above: Order Comment: Speci men Type: BLOOD SPECIMENOrdering Facility: [facility] Address: [address] [place] [address] Performed By: #### 5 7021-8 ####[facility]ATORYCLIA [id number] [place] [id number] [place] MCHC (RBC) [Mass/Vol] 32.4 g/dL Normal 30.5-36.0 [facility] Comment on above: Order Comment: Speci men Type: BLOOD SPECIMENOrdering Facility: [facility] Address: [address] [place] [address] Performed By: #### 5 7021-8 ####[facility]ORATORYCLIA [id number] [place] [id number] [place] MCV (RBC) [Entitic vol] 92.6 fL Normal 80.0-100.0 [facility] Comment on above: Order Comment: Speci men Type: BLOOD SPECIMENOrdering Facility: [facility] Address: [address] [place] [address] Performed By: #### 5 7021-8 ####[facility]ORATORYCLIA [id number] [place] [address] [place] Monocytes (Bld) [#/Vol] 0.81 10*3/uL Normal <0.87 [facility] Comment on above: Order Comment: Speci men Type: BLOOD SPECIMENOrdering Facility: [facility] Address: [address] [place] [address] Performed By: #### 5 7021-8 ####[facility]ATORYCLIA [id number] [place] [id number] [place] Monocytes/100 WBC (Bld) 8.6 % Normal [facility] Comment on above: Order Comment: Speci men Type: BLOOD SPECIMENOrdering Facility: [facility] Address: [address] [place] [address] Performed By: #### 5 7021-8 ####[facility]ORATORYCLIA [id number] [place] [id number] [place] Neutrophils (Bld) [#/Vol] 4.83 10*3/uL Normal 1.45-7.50 [facility] Comment on above: Order Comment: Speci men Type: BLOOD SPECIMENOrdering Facility: [facility] Address: [address] [place] [address] Performed By: #### 5 7021-8 ####[facility]ORATORYCLIA [id number] [place] [id number] [place] Neutrophils/100 WBC (Bld) 51.6 % Normal [facility] Comment on above: Order Comment: Speci men Type: BLOOD SPECIMENOrdering Facility: [facility] Address: [address] [place] [address] Performed By: #### 5 7021-8 ####[facility]ORATORYCLIA [id number] [place] [address] [place] Nucleated RBC (Bld) [#/Vol] 10*3/uL Normal <0.01 [facility] Comment on above: Order Comment: Speci men Type: BLOOD SPECIMENOrdering Facility: [facility] Address: [address] [place] [address] Performed By: #### 5 7021-8 ####[facility]ORATORYCLIA [id number] [place] [address] [place] Nucleated RBC/100 WBC (Bld) [Ratio] 0.0 /100 WBC Normal [facility] Comment on above: Order Comment: Speci men Type: BLOOD SPECIMENOrdering Facility: [facility] Address: [address] [place] [address] Performed By: #### 5 7021-8 ####[facility]ATORYCLIA [id number] [place] [id number] [place] Platelet mean volume (Bld) [Entitic vol] 10.2 fL Normal 9.0-12.7 [facility] Comment on above: Order Comment: Speci men Type: BLOOD SPECIMENOrdering Facility: [facility] Address: [address] [place] [address] Performed By: #### 5 7021-8 ####[facility]ORATORYCLIA [id number] [place] [id number] [place] Platelets (Bld) [#/Vol] 205 10*3/uL Normal 150-400 [facility] Comment on above: Order Comment: Speci men Type: BLOOD SPECIMENOrdering Facility: [facility] Address: [address] [place], [place] [address] Performed By: #### 5 7021-8 ####[facility]ATORYCLIA [id number] [place] [id number] [facility] RBC (Bld) [#/Vol] 3.90 10*6/uL Normal 3.90-5.20 [facility] Comment on above: Order Comment: Speci men Type: BLOOD SPECIMENOrdering Facility: [facility] Address: [address] [place] [address] Performed By: #### 5 7021-8 ####[facility]ORATORYCLIA [id number] [place] [id number] [facility] WBC (Bld) [#/Vol] 9.37 10*3/uL Normal 3.70-11.00 [facility] Comment on above: Order Comment: Speci men Type: BLOOD SPECIMENOrdering Facility: [facility] Address: [address] [place] [address] Performed By: #### 5 7021-8 ####[facility]ATORYCLIA [id number] [place] [id number] [facility] CNDSon 07-18-2023 CNDS HNO ID: [id number] Author: ANGELICA SILVA MD Service: Hospital Medicine Author Type: Physician Type: Discharge Summary Filed: 07/18/2023 09:36 Note Text: DISCHARGE SUMMARY PATIENT NAME: Sandra Schmitz ADMISSION DATE: 07/13/2023 DISCHARGE DATE: 07/18/2023 ATTENDING PHYSICIAN: Angelica Silva MD Code Status: Not on file PCP: Mandeep Houser DO Highest Readmission Risk Score: 13 The 30 day readmissions risk score is derived from an internally validated risk model which evaluates patient level characteristics, utilization history, medication orders and lab results up until the day of discharge. Patients with a score of 40 or above are considered highest risk for readmission. Specific patient level drivers will be listed at the bottom of the summary. 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 (LVEF ~26%) with chronic LBBB SECONDARY DIAGNOSIS: Principal Problem: Bradycardia (POA: Yes) Active Problems: Acute on chronic HFrEF (heart failure with reduced ejection fraction) (HCC) (POA: Yes) Coronary artery disease involving [place] coronary artery of [place] heart without angina pectoris (POA: Yes) Acute hypoxic respiratory failure (HCC) (POA: Unknown) Atrial fibrillation (HCC) (POA: Unknown) LBBB (left bundle branch block) (POA: Unknown) Presence of cardiac resynchronization therapy defibrillator (CUT PLUG PACKER-D) (POA: Unknown) Resolved Problems: * No resolved hospital problems. 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 chronic LBBB 77 year old female, who presented to [facility] ER due to concerns for chest pressure with associated postural lightheadedness and dyspnea She was subsequently admitted to [facility] She had lexiscan stress test which was negative for inducible ischemia Also she had a transthoracic echocardiogram that showed reduced ejection fraction of <35%. Before her admission she was on Entresto 49/51 BID and metoprolol but that was causing her to be bradycardic and hypotensive also dizzy so both medications were stopped also she did not tolerate SGL2i. She was diuresed with IV Lasix And she was transferred to [facility] for consideration of inpatient CUT PLUG PACKER implantation given her left bundle branch block Pt was seen by EP and she had MDT CUT PLUG PACKER-D insertion on 08/14 In regards to heart failure she was continued on Lasix at She was seen by Dr Wells heart failure specialist appreciate her input Patient was started back on low dose entresto 1/2 tab BID , toprol XL 12.5mg and lasix 20 mg daily which she initially tolerated blood pressure was soft cardiology aware and they recommended to continue with above until then on 07/16 she had an episode of lightheadedness , clammy and sweaty felt she was going to pass out Per patient this is the same episode she was having before admission She said these episodes resolved completely when she was off the Entresto We checked her blood sugars and it was 141 Reviewed monitor no evidence of significant arrhythmias Discussed with appreciate her input given the above the decision was made to stop the Entresto and follow-up with Dr. Wells in 2 weeks GDMT can be reintroduced then After stopping estresto blood pressure improved and patient was feeling much better At the time of discharge patient did not have any chest pain or shortness of breath no dizziness no nausea vomiting or diarrhea she was tolerating diet she was cleared for discharge from cardiology and EP standpoint Plan to follow up with Dr Wells in 2 weeks EP Will arrange 1-2 week follow up with EP ROSEMARY at [facility] office with device check prior. OPERATIONS/PROCEDURE DURING THIS HOSPITALIZATION: Procedure(s) (LRB): INSERTION PERM IMPLANTABLE DEFIBRILLATOR SYSTEM, W/TRANSVENOUS LEAD(S) (N/A) INSERTION CORONARY SINUS/LT VENTRICULAR LEAD W/INITIAL INSERTION OF PACEMAKER/DEFIB GENERATOR (N/A) CONSULTS DURING HOSPITALIZATION: Treatment Team: Attending Provider: Angelica Silva MD Primary Service: , [facility] Consulting: Pili Wells MD Orders Placed This Encounter Smoking Cessation Education Consult Cardiology (PHYSICIAN CONSULT) Physician Consult PATIENT CONDITION AT DISCHARGE: Stable ADVANCE CARE PLANNING DISCUSSION (if applicable): N/A DISCHARGE DISPOSITION: Home with Self Care Discharge Physical Exam: VITAL SIGNS: BP 115/65 Pulse (!) 58 Temp 36.4 ?C (97.5 ?F) (Oral) Resp 18 Ht 160 cm (5' 3) Wt 87 kg (191 lb 12.8 oz) SpO2 93% BMI 33.98 kg/m? GENERAL: Alert, no distress, cooperative LUNGS: Lungs clear to ausc (more content not included)... Normal [facility] Comprehensive metabolic 2000 panelon 07-18-2023 Albumin [Mass/Vol] 3.5 g/dL Low 3.9-4.9 [facility] Comment on above: Order Comment: Speci men Type: BLOOD SPECIMEN [facility] Facility: [facility] Address: [address] [place] [address] Performed By: #### 2 4321-2, 79632-4 #### [facility] CLIA [id number] [address] [place] [address] [place] ALP [Catalytic activity/Vol] 52 U/L Normal 34-123 [facility] Comment on above: Order Comment: Speci men Type: BLOOD SPECIMEN [facility] Facility: [facility] Address: [address] [place] [address] Performed By: #### 2 4320-2, #### [facility] CLIA [id number] [address] [place] [address] [place] ALT [Catalytic activity/Vol] 18 U/L Normal 7-38 [facility] Comment on above: Order Comment: Speci men Type: BLOOD SPECIMEN [facility]ing Facility: [facility] Address: [address] [place] [address] Performed By: #### 2 2, #### [facility] CLIA [id number] [address] [place] [address] [place] Anion gap [Moles/Vol] 8 mmol/L Low 9-18 [facility] Comment on above: Order Comment: Speci men Type: BLOOD SPECIMEN [facility]: [facility] Address: [address] [place] [address] Performed By: #### 2 4320-2, #### [facility] CLIA [id number] [address] [place] [address] [place] AST [Catalytic activity/Vol] 18 U/L Normal 13-35 [facility] Comment on above: Order Comment: Speci men Type: BLOOD SPECIMEN [facility] Facility: [facility] Address: [address] [place] [address] Performed By: #### 2 2, #### [facility] CLIA [id number] [address] [place] [address] [place] Bilirubin [Mass/Vol] 0.4 mg/dL Normal 0.2-1.3 [facility] Comment on above: Order Comment: Speci men Type: BLOOD SPECIMEN [facility] Facility: [facility] Address: [address] [place] [address] Performed By: #### 2 432-2, #### [facility] CLIA [id number] [address] [place] [address] [place] Calcium [Mass/Vol] 8.8 mg/dL Normal 8.5-10.2 [facility] Comment on above: Order Comment: Speci men Type: BLOOD SPECIMEN Ordering Facility: [facility] Address: [address] [place] [address] Performed By: #### 2 4321-2, #### [facility] CLIA [id number] [address] [place] [address] [place] Chloride [Moles/Vol] 105 mmol/L Normal 97-105 [facility] Comment on above: Order Comment: Speci men Type: BLOOD SPECIMEN [facility] Facility: [facility] Address: [address] [place] [address] Performed By: #### 2 4321-2, #### [facility] CLIA [id number] [address] [place] [address] [place] CO2 [Moles/Vol] 27 mmol/L Normal 22-30 [facility] Comment on above: Order Comment: Speci men Type: BLOOD SPECIMEN [facility] Facility: [facility] Address: [address] [place] [address] Performed By: #### 2 4321-2, #### [facility] CLIA [id number] [address] [place] [address] [place] Creatinine [Mass/Vol] 1.10 mg/dL High 0.58-0.96 [facility] Comment on above: Order Comment: Speci men Type: BLOOD SPECIMEN [facility] Facility: [facility] Address: [address] [place] [address] Performed By: #### 2 4321-2, #### [facility] CLIA [id number] [address] [place] [address] [place] Creatinine and Glomerular filtration rate.predicted panel (S/P/Bld) 52 mL/min/1.73m??? Low >=60 [facility] Comment on above: Order Comment: Speci men Type: BLOOD SPECIMEN Ordering Facility: [facility] Address: [address] [place] [address] Result Comment: Aaron mated Glomerular Filtration Rate (eGFR) is calculated using the 2020 CKD-EPI creatinine equation. This equation utilizes serum creatinine, sex, and age as parameters. The creatinine assay has traceable calibration to isotope dilution-mass spectrometry. Refer to KDIGO guidelines for clinical interpretation. In patients with unstable renal function, e.g. those with acute kidney injury, the eGFR may not accurately reflect actual GFR. Performed By: #### 2 432-, #### [facility] CLIA [id number] [place] [address] [place] Glucose [Mass/Vol] 95 mg/dL Normal 74-99 [facility] Comment on above: Order Comment: Lenard jesus Type: BLOOD SPECIMEN Ordering Facility: [facility] Address: [address] [place] [address] Result Comment: The [place] Diabetes [employer] (ADA) provides guidance for cutoff values for fasting glucose and random glucose. The ADA defines fasting as no caloric intake for at least 8 hours. Fasting plasma glucose results between 100 to 125 mg/dL indicate increased risk for diabetes (prediabetes). Fasting plasma glucose results greater than or equal to 126 mg/dL meet the criteria for diagnosis of diabetes. In the absence of unequivocal hyperglycemia, results should be confirmed by repeat testing. In a patient with classic symptoms of hyperglycemia or hyperglycemic crisis, random plasma glucose results greater than or equal to 200 mg/dL meet the criteria for diagnosis of diabetes. Reference: Standards of Medical Care in Diabetes 2016, [place] [employer]. Diabetes Care. 2016.39(Suppl 1). Performed By: #### 2 4320-06, #### [facility] CLIA [id number] [place] [address] [place] Potassium [Moles/Vol] 4.0 mmol/L Normal 3.7-5.1 [facility] Comment on above: Order Comment: Lenard jesus Type: BLOOD SPECIMEN Ordering Facility: [facility] Address: [address] [place] [address] Performed By: #### 2 432-, #### [facility] CLIA [id number] [address] [place] [address] [place] Protein [Mass/Vol] 6.2 g/dL Low 6.3-8.0 [facility] Comment on above: Order Comment: Speci men Type: BLOOD SPECIMEN [facility]ing Facility: [facility] Address: [address] [place] [address] Performed By: #### 2 4321-2, #### [facility] CLIA [id number] [address] [place] [address] [place] Sodium [Moles/Vol] 140 mmol/L Normal 136-144 [facility] Comment on above: Order Comment: Speci men Type: BLOOD SPECIMEN [facility] Facility: [facility] Address: [address] [place] [address] Performed By: #### 2 4321-2, #### [facility] CLIA [id number] [address] [place] [address] [place] Urea nitrogen [Mass/Vol] 36 mg/dL High 7-21 [facility] Comment on above: Order Comment: Speci men Type: BLOOD SPECIMEN Ordering Facility: [facility] Address: [address] [place] [address] Performed By: #### 2 4321-2, #### [facility] CLIA [id number] [address] [place] [address] [place] Magnesium SerPl-mCncon 07-17 Magnesium [Mass/Vol] 2.3 mg/dL Normal 1.7-2.3 [facility] Comment on above: Order Comment: Speci men Type: BLOOD SPECIMEN [facility]ing Facility: [facility] Address: [address] [place] [address] Performed By: #### 5 8410-2 #### [facility] CLIA [id number] [address] [place] [address] [place] NURSING PROGon 07-18-2023 NURSING PROG HNO ID: [id number] Author: CHON RAMSEY RN Service: Nursing Author Type: Registered Nurse Type: Nursing Progress Note Filed: 07/18/2023 15:41 Note Text: Daily note: Mateo Silva MD pt clear for discharged. Per pt her family can pick her up after 2pm. 1500: pt is missing a few prescriptions. Waiting on MD Shira. 1520: prescriptions fixed.mateo Silva MD pt okay to go. Pt has all of his belongings. Discharge instructions provided. Pt daughter is here to take her home. [facility] ALLIED HEALTHon 07-17-2023 ALLIED HEALTH HNO ID: [id number] Author: ANAND AMIN RT(R) Service: ? Author Type: Technologist Type: Allied Health Filed: 07/17/2023 10:02 Note Text: Radiology Service Progress Note PATIENT NAME: Sandra Schmitz DATE OF SERVICE: July 17, 2023 TIME: 10:02 AM PATIENT IDENTITY VERIFICATION COMPLETED USING TWO (2) IDENTIFIERS: Name and Date of confirmed by patient verbally and Name and Date of confirmed by identification band. FALL SCREENING: Has the patient had 2 falls in the last year or 1 fall with injury or currently using an Ambulatory Assistive Device (Walker, Cane, Wheelchair, Crutches, etc.)? Inpatient: Screened on floor PATIENT GENDER DATA: Female. status: : No status: NO. PATIENT RELEVANT IMPLANT DATA REVIEWED: Not Applicable PATIENT PRESENTS WITH AN IMPLANTABLE OR ATTACHED MEDICAL SALES: No RADIOLOGY DEPARTMENT: General X-ray: Exam(s) Completed: Chest X-Ray PERIPHERAL IV DATA: Not applicable SIGNED BY: RT Cindy(R) July 17, 2023 10:02 AM [facility] ANES POSTPROC EVALon 024 ANES POSTPROC EVAL HNO ID: [id number] Author: GRISELDA SALMERON MD Service: Anesthesiology Author Type: Anesthesiologist Type: Anesthesia Postprocedure Evaluation Filed: 07/17/2023 07:14 Note Text: POST ANESTHESIA EVALUATION NOTE : 1945 Procedure Summary Date: 07/16/23 Room / Location: EP ROOM 2 / EP Anesthesia Start: 131 Anesthesia Stop: 1716 Procedures: INSERTION PERM IMPLANTABLE DEFIBRILLATOR SYSTEM, W/TRANSVENOUS LEAD(S) INSERTION CORONARY SINUS/LT VENTRICULAR LEAD W/INITIAL INSERTION OF PACEMAKER/DEFIB GENERATOR Diagnosis: Congestive heart failure, unspecified HF chronicity, unspecified heart failure type (HCC) (Congestive heart failure, unspecified HF chronicity, unspecified heart failure type (HCC) [I50.9]) Surgeons: Dilcia Pearson MD Responsible Provider: Griselda Salmeron MD Anesthesia Type: general ASA Status: 4 Anesthesia Type: general Airway Type: ETT Last Vitals Vitals Value Taken Time BP 98/60 07/17/23 0349 Temp 36.4 ?C (97.5 ?F) 07/17/23 0349 HR SpO2 68 07/16/23 1822 Resp 16 07/17/23 0349 SpO2 90 % 07/17/23 0349 Vitals shown include unfiled device data. Post Anesthesia Patient Status Patient Evaluation: PACU. PACU/ICU Patient Condition: stable. Anticipated Disposition: phase 2 then home. Neurological Status: aware and responsive. Pulmonary Status: breathing comfortably on room air Airway Control: returned to baseline unsupported. Cardiovascular Status: stable. Pain Management: clinically adequate Postoperative Hydration: acceptable. Intraoperative Events: no significant anesthesia events Recommendation: continue current plan of care. Anesthesia Observations No Documentation SIGNATURE: Griselda Salmeron MD PATIENT NAME: Sandra Schmitz DATE: July 17, 2023 TIME: 7:14 AM CSN: [id number] Normal [facility] Basic metabolic 2000 panelon 07-17-2023 Anion gap [Moles/Vol] 9 mmol/L Normal 9-18 [facility] Comment on above: Order Comment: Speci edin Type: BLOOD SPECIMEN [facility]ing Facility: [facility] Address: [address] [place] [address] Performed By: #### 2 4321-2 #### [facility] CLIA [id number] [address] [place] [address] [place] Calcium [Mass/Vol] 9.0 mg/dL Normal 8.5-10.2 [facility] Comment on above: Order Comment: Lenard jesus Type: BLOOD SPECIMEN Ordering Facility: [facility] Address: [address] [place] [address] Performed By: #### 2 4321-2 #### [facility] CLIA [id number] [address] [place] [address] [place] Chloride [Moles/Vol] 103 mmol/L Normal 97-105 [facility] Comment on above: Order Comment: Speci men Type: BLOOD SPECIMEN Ordering Facility: [facility] Address: [address] [place] [address] Performed By: #### 2 4321-2 #### [facility] CLIA [id number] [address] [place] [address] [place] CO2 [Moles/Vol] 26 mmol/L Normal 22-30 [facility] Comment on above: Order Comment: Speci men Type: BLOOD SPECIMEN Ordering Facility: [facility] Address: [address] [place] [address] Performed By: #### 2 4321-2 #### [facility] CLIA [id number] [address] [place] [address] Creatinine [Mass/Vol] 0.98 mg/dL High 0.58-0.96 [facility] Comment on above: Order Comment: Speci men Type: BLOOD SPECIMEN Ordering Facility: [facility] Address: [address] [place] [address] Performed By: #### 2 4321-2 #### [facility] CLIA [id number] [address] [place] [address] Creatinine and Glomerular filtration rate.predicted panel (S/P/Bld) 60 mL/min/1.73m??? Normal >=60 [facility] Comment on above: Order Comment: Speci men Type: BLOOD SPECIMEN Ordering Facility: [facility] Address: [address] [place] [address] Result Comment: Aaron mated Glomerular Filtration Rate (eGFR) is calculated using the 2020 CKD-EPI creatinine equation. This equation utilizes serum creatinine, sex, and age as parameters. The creatinine assay has traceable calibration to isotope dilution-mass spectrometry. Refer to KDIGO guidelines for clinical interpretation. In patients with unstable renal function, e.g. those with acute kidney injury, the eGFR may not accurately reflect actual GFR. Performed By: #### 2 4321-2 #### [facility] CLIA [id number] [address] [place] [address] [place] Glucose [Mass/Vol] 120 mg/dL High 74-99 [facility] Comment on above: Order Comment: Lenard jesus Type: BLOOD SPECIMEN Ordering Facility: [facility] Address: [address] [place] [address] Result Comment: The [place] Diabetes [employer] (ADA) provides guidance for cutoff values for fasting glucose and random glucose. The ADA defines fasting as no caloric intake for at least 8 hours. Fasting plasma glucose results between 100 to 125 mg/dL indicate increased risk for diabetes (prediabetes). Fasting plasma glucose results greater than or equal to 126 mg/dL meet the criteria for diagnosis of diabetes. In the absence of unequivocal hyperglycemia, results should be confirmed by repeat testing. In a patient with classic symptoms of hyperglycemia or hyperglycemic crisis, random plasma glucose results greater than or equal to 200 mg/dL meet the criteria for diagnosis of diabetes. Reference: Standards of Medical Care in Diabetes 2016, [place] [employer]. Diabetes Care. 2016.39(Suppl 1). Performed By: #### 2 4321-2 #### [facility] CLIA [id number] [address] [place] [address] [place] Potassium [Moles/Vol] 4.6 mmol/L Normal 3.7-5.1 [facility] Comment on above: Order Comment: Lenard jesus Type: BLOOD SPECIMEN Ordering Facility: [facility] Address: [address] [place] [address] Performed By: #### 2 4321-2 #### [facility] CLIA [id number] [address] [place] [address] [place] Sodium [Moles/Vol] 138 mmol/L Normal 136-144 [facility] Comment on above: Order Comment: Ernestinei men Type: BLOOD SPECIMEN Ordering Facility: [facility] Address: [address] [place] [address] Performed By: #### 2 4321-2 #### [facility] CLIA [id number] [address] [place] [address] [place] Urea nitrogen [Mass/Vol] 33 mg/dL High 7-21 [facility] Comment on above: Order Comment: Ernestinei men Type: BLOOD SPECIMEN Ordering Facility: [facility] Address: [address] [place] [address] Performed By: #### 2 4321-2 #### [facility] CLIA [id number] [address] [place] [address] [place] CBC panel Auto (Bld)on 07-16 Erythrocyte distribution width (RBC) [Ratio] 14.6 % Normal 11.5-15.0 [facility] Comment on above: Order Comment: Speci men Type: BLOOD SPECIMEN Ordering Facility: [facility] Address: [address] [place] [address] Performed By: #### 5 8410-2 #### [facility] CLIA [id number] [address] [place] [address] OF [place] Hematocrit (Bld) [Volume fraction] 38.8 % Normal 36.0-46.0 [facility] Comment on above: Order Comment: Speci men Type: BLOOD SPECIMEN Ordering Facility: [facility] Address: [address] [place] [address] Performed By: #### 5 8410-2 #### [facility] CLIA [id number] [address] [place] [address] [place] Hemoglobin (Bld) [Mass/Vol] 12.8 g/dL Normal 11.5-15.5 [facility] Comment on above: Order Comment: Speci men Type: BLOOD SPECIMEN Ordering Facility: [facility] Address: [address] [place] [address] Performed By: #### 5 8410-2 #### [facility] CLIA [id number] [address] [place] [address] [place] MCH (RBC) [Entitic mass] 29.8 pg Normal 26.0-34.0 [facility] Comment on above: Order Comment: Speci men Type: BLOOD SPECIMEN Ordering Facility: [facility] Address: [address] [place] [address] Performed By: #### 5 8410-2 #### [facility] CLIA [id number] [address] [place] [address] [place] MCHC (RBC) [Mass/Vol] 33.0 g/dL Normal 30.5-36.0 [facility] Comment on above: Order Comment: Speci men Type: BLOOD SPECIMEN Ordering Facility: [facility] Address: [address] [place] [address] Performed By: #### 5 8410-2 #### [facility] CLIA [id number] [address] [place] [address] [place] MCV (RBC) [Entitic vol] 90.4 fL Normal 80.0-100.0 [facility] Comment on above: Order Comment: Speci men Type: BLOOD SPECIMEN Ordering Facility: [facility] Address: [address] [place] [address] Performed By: #### 5 8410-2 #### [facility] CLIA [id number] [address] [place] [address] [place] Nucleated RBC (Bld) [#/Vol] 10*3/uL Normal <0.01 [facility] Comment on above: Order Comment: Speci men Type: BLOOD SPECIMEN Ordering Facility: [facility] Address: [address] [place] [address] Performed By: #### 5 8410-2 #### [facility] CLIA [id number] [address] [place] [address] [place] Platelet mean volume (Bld) [Entitic vol] 9.9 fL Normal 9.0-12.7 [facility] Comment on above: Order Comment: Speci men Type: BLOOD SPECIMEN Ordering Facility: [facility] Address: [address] [place] [address] Performed By: #### 5 8410-2 #### [facility] CLIA [id number] [address] [place] [address] [place] Platelets (Bld) [#/Vol] 266 10*3/uL Normal 150-400 [facility] Comment on above: Order Comment: Speci men Type: BLOOD SPECIMEN Ordering Facility: [facility] Address: [address] [place] [address] Performed By: #### 5 8410-2 #### [facility] CLIA [id number] [address] [place] [address] [place] RBC (Bld) [#/Vol] 4.29 10*6/uL Normal 3.90-5.20 [facility] Comment on above: Order Comment: Speci men Type: BLOOD SPECIMEN Ordering Facility: [facility] Address: [address] [place] [address] Performed By: #### 5 8410-2 #### [facility] CLIA [id number] [address] [place] [address] [place] WBC (Bld) [#/Vol] 11.00 10*3/uL Normal 3.70-11.00 [facility] Comment on above: Order Comment: Speci men Type: BLOOD SPECIMEN Ordering Facility: [facility] Address: [address] [place] [address] Performed By: #### 5 8410-2 #### [facility] CLIA [id number] [facility] CNPNon 07-17-2023 CNPN Telephone (FVPRAD) ----- SANDRA SCHMITZ ([id number]) 1945 F [facility]* Date Time Provider Department 07/17/23 MORENITA HILL FVFILIBERTO During your visit today, we recorded the following information about you: Morenita Hill APRN.DIRECTOR OF DONOR RELATIONS 07/17/2023 11:05 AM Signed Please call patient to arrange for appointment with EP ROSEMARY or Dr. Wellington with device check immediately prior at [facility] office. If we could coordinate this for same day she is seeing Dr. Wells, that would be great, in the next ~2 weeks. Thank you! Morenita Hill APRN.DIRECTOR OF DONOR RELATIONS Allergies As of Date: 07/17/2023 Noted Allergy Reaction EMILIO INHIBITORS 05/03/2020 14 - Other: See Comments Comments: Short of breath, symptoms of heart failure BETA-BLOCKERS (BETA-ADRENERGIC BL*05/03/2020 14 - Other: See Comments Comments: Short of breath, symptoms of heart failure AUGMENTIN (AMOXICILLIN-POT CLAVUL*01/23/2013 8 - GI Upset CODEINE 10/24/2012 1 - Mental Status Change Comments: Patient felt like she was made out of lead LIPITOR (ATORVASTATIN) 05/05/2020 17 - Myalgia Comments: Muscle aches SULFA (SULFONAMIDE ANTIBIOTICS) 04/28/2020 14 - Other: See Comments AMLODIPINE 04/28/2020 14 - Other: See Comments Comments: lightheaded Date Reviewed: 07/17/2023 Reviewed by: Bentley Dumont, RN - Fully Assessed Reason for Visit: Appointment [186] Prescriptions as of 07/20/2023 - potassium chloride ER (KLOR-CON) 20 mEq tablet Take 1 tablet by mouth once daily. - ezetimibe (ZETIA) 10 mg tablet Take 1 tablet by mouth once daily. - metoprolol succinate ER (TOPROL XL) 25 mg 24 hr tablet Take 0.5 tablets by mouth daily at bedtime. - furosemide (LASIX) 20 mg tablet Take 1 tablet by mouth once daily. - acetaminophen (TYLENOL) 500 mg tablet Take 2 tablets by mouth every 8 hours as needed for pain. - levothyroxine (LEVOXYL) 88 mcg tablet Take 1 tablet by mouth daily before breakfast. - ondansetron, PF, (ZOFRAN) 4 mg/2 mL soln Inject 4 mg intravenously every 6 hours as needed. - cyanocobalamin (VITAMIN B-12) 1,000 mcg tab Take 1 tablet by mouth once daily. - Cholecalciferol, Vitamin D3, 50 mcg (2,000 unit) cap Take 2 capsules by mouth once daily. - aspirin, enteric coated (ECOTRIN LOW STRENGTH) 81 mg EC tablet Take 1 tablet by mouth once daily. Facility-Administered Medications as of 07/20/2023 - perflutren lipid microspheres 1.3 mL in NaCl (PF) 0.9% 10 mL injection (DEFINITY) - sodium chloride 0.9 % (flush) 10 mL (BD POSIFLUSH) Problem List As Of Date 07/17/2023 Noted Resolved IBS (irritable bowel syndrome) [K58.9] 01/23/2013 Palpitations [R00.2] 12/16/2014 Obesity, Class I, BMI 30-34.9 [E66.9] 03/10/2020 Shortness of breath [R06.02] 05/03/2020 06/14/2020 Acute on chronic systolic CHF (congestive heart*05/03/2020 Homozygous Factor V Leiden mutation (HCC) [D68.*05/03/2020 Hypothyroidism [E03.9] 01/24/2018 Chest pain [R07.9] 05/03/2020 06/14/2020 Post-operative state [Z98.890] 05/24/2020 06/14/2020 Rectocele [N81.6] 05/25/2020 Cystocele, midline [N81.11] 05/25/2020 Aspiration pneumonia (HCC) [J69.0] 05/30/2020 09/22/2020 Acute acalculous cholecystitis [K81.0] 05/30/2020 Primary hypertension [I10] 06/14/2020 Acute idiopathic gout involving toe of left cristal*09/22/2020 Diverticulitis [K57.92] 09/29/2020 Hypokalemia [E87.6] 09/29/2020 Hospital discharge follow-up [Z09] 12/06/2020 Tubular adenoma of colon [D12.6] 12/09/2020 Mixed hyperlipidemia [E78.2] 12/29/2020 Chronic pain of right ankle [M25.571, G89.29] 12/29/2020 Kidney insufficiency [N28.9] 12/29/2020 Chronic combined systolic and diastolic congest*02/14/2021 Valvular heart disease [I38] 04/06/2021 Colon cancer screening [Z12.11] 04/06/2021 Left bundle branch block [I44.7] 05/23/2021 Left shoulder pain [M25.512] 07/11/2021 Lateral epicondylitis of left elbow [M77.12] 07/11/2021 Cardiomegaly [I51.7] 02/13/2022 Chronic bilateral thoracic back pain [M54.6, G8*07/18/2022 Rib pain on right side [R07.81] 07/18/2022 Somatic dysfunction of rib [M99.08] 07/18/2022 Somatic dysfunction of spine, thoracic [M99.02] 07/18/2022 Somatic dysfunction of spine, cervical [M99.01] 07/18/2022 Foot drop, right [M21.371] 08/02/2022 Arthrosis of ankle, right [M19.071] 08/02/2022 Coronary artery disease involving [place] lopez*08/02/2022 Vitamin D deficiency [E55.9] 08/02/2022 Somatic dysfunction of head region [M99.00] 08/10/2022 Chronic neck pain [M54.2, G89.29] 08/24/2022 Chronic bronchitis (HCC) [J42] 09/11/2022 SVT (supraventricular tachycardia) (HCC) [I47.1*09/11/2022 Combined systolic and diastolic cardiac dysfunc*09/11/2022 Hypothyroidism, acquired [E03.9] 04/17/2023 Acute decompensated heart failure (HCC) [I50.9] 07/10/2023 Nonischemic cardiomyopathy (HCC) [I42.8] 07/10/2023 Acute on chronic combined systolic and diastoli*07/11/2023 Bradycardia [R00.1] 07/13/2023 Acute hypoxic respiratory failure (more content not included)... Normal [facility] CONSULT PROGon 07-17-2023 CONSULT PROG HNO ID: [id number] Author: MORENITA HILL APRN.DIRECTOR OF DONOR RELATIONS Service: Electrophysiology Author Type: Nurse Practitioner Type: Consult Progress Note Filed: 07/17/2023 11:02 Note Text: [facility] CARDIOVASCULAR [facility]ICINE PROGRESS NOTE PRIMARY SERVICE: 5, Fv HOSPITAL DAY: # 4 INTERVAL HISTORY POD #1 s/p MDT CUT PLUG PACKER-D for primary prevention in the setting of chronic non-ischemic cardiomyopathy while on optimal GDMT and chronic LBBB. Today, feeling well, but tired. PHYSICAL EXAM BP 101/70 Pulse 61 Temp 36.4 ?C (97.5 ?F) (Oral) Resp 16 Ht 160 cm (5' 3) Wt 86.1 kg (189 lb 14.4 oz) SpO2 92% BMI 33.64 kg/m? Intake/Output Summary (Last 24 hours) at 07/17/2023 1055 Last data filed at 07/17/2023 0604 Gross per 24 hour Intake 1000 ml Output 500 ml Net 500 ml General Appearance: No distress HEENT: PERRLA Lungs: Clear Heart: Regular rate AND rhythm Abdomen: Soft, Non-tender, and Bowel sounds present Skin: Warm and Dry Musculoskeletal: No deformities Neurologic/Psychiatric: Oriented to time, place AND person and Alert Left subclavian device site: clean, dry and with steri-strips intact with no drainage, signs of infection, erythema or erosion MEDICATIONS Current Facility-Administered Medications Medication Dose Route Frequency ezetimibe 10 mg tab(s) (ZETIA) 10 mg ORAL DAILY aspirin, enteric coated 81 mg tab(s) 81 mg ORAL DAILY levothyroxine 88 mcg tab(s) (SYNTHROID) 88 mcg ORAL BEFORE BREAKFAST DAILY NaCl 0.9% iv flush bag 20 mL INTRAVENOUS PRN acetaminophen 650 mg tab(s) (TYLENOL) 650 mg ORAL q 4 H PRN metoprolol succinate ER 12.5 mg tab(s) (TOPROL XL) 12.5 mg ORAL AT BEDTIME sacubitril-valsartan 24-26 mg 0.5 tablet (ENTRESTO) 0.5 tablet ORAL BID ondansetron (PF) 4 mg injection (ZOFRAN) 4 mg INTRAVENOUS q 6 H PRN furosemide 20 mg tab(s) (LASIX) 20 mg ORAL DAILY DATA Recent Labs 07/17/23 0548 07/15/23 0418 WBC 11.00 7.64 HB 12.8 12.7 HCT 38.8 38.7 PLT 266 280 Recent Labs 07/17/23 0548 07/16/23 0558 07/15/23 0418 NA 138 143 141 K 4.6 4.0 3.8 CO2 26 21* 25 BUN 33* 39* 38* CREAT 0.98* 1.04* 0.99* GLUC 120* 94 95 MG -- 2.2 2.2 2V CXR: Lines, tubes, and devices: AICD Lungs and pleura: No consolidation. No lung mass. No pleural effusion. No pneumothorax. Cardiomediastinal silhouette: Mild cardiomegaly Bones and soft tissues: Unremarkable. EKG 07/17/2023: ASSESSMENT AND PLAN Chronic, non-ischemic HFrEF with LBBB s/p MDT CUT PLUG PACKER-D POD #1 s/p MDT CUT PLUG PACKER-D, reports feeling fatigued, but overall feeling well. EKG as above with improved QRS from ~170 ms to now ~130 ms 2V CXR demonstrates appropriate lead placement and no acute abnormalities as per final report. POD #1 device check completed, demonstrates stable lead impedances/thresholds. Post procedure activity restrictions, wound care, medication and follow up instructions discussed and provided in written format Will arrange 1-2 week follow up with EP ROSEMARY at [facility] office with device check prior. Patient may be discharged from EP perspective. Case to be discussed with staff, Dr. Muro. Morenita Hill APRN.DIRECTOR OF DONOR RELATIONS July 17, 2023 10:55 AM EP Pager: [phone] Normal [facility] CONSULT PROG HNO ID: [id number] Author: PILI WELLS MD Service: Cardiovascular Medicine Author Type: Physician Type: Consult Progress Note Filed: 07/17/2023 10:42 Note Text: [facility] PROGRESS NOTE CONSULTING SERVICE: Cardiology/ Adv HF and Transplant Consult Team PRIMARY SERVICE: Internal Medicine DATE OF SERVICE: 07/17/2023 Subjective: No events overnight. Daughter at bedside. Reports feeling well. No chest pain/pressure/discomfort, no dyspnea on exertion, no palpitations. Some positional lightheadedness when going from sitting to standing. PHYSICAL EXAM: BP 101/70 Pulse 61 Temp (Src) 97.5 (Oral) Resp 16 Ht 5' 3 (1.60m) Wt 189 lb 14.4 oz (86.1kg) SpO2 92% BMI 33.65 kg/(m2). O2 Therapy: Room Air Admission Weight: 86.6 kg (190 lb 14.4 oz) General: well developed, well nourished female in no acute distress. Neck: supple, no carotid bruits. JVD ~8 cm H2O. Cardiac: Regular rate and rhythm. Normal S1 and S2. No S3 or S4. no murmurs or gallops. Lungs: Good inspiratory effort, breath sounds equal. Clear to auscultation bilaterally. No wheezing, rhonchi or rales. Abdominal: soft, nontender, non-distended. Normal bowel sounds. Extremities: Edema: none. Pulses: normal radial and posterior tibial artery pulses. Normal capillary refill. Skin: Warm to touch. Neuro: awake, oriented with no focal neurological deficit. Psychiatric: appropriate mood and affect for her clinical situation. DATA: I/O's 24 hrs: Intake/Output Summary (Last 24 hours) at 07/17/2023 0901 Last data filed at 07/17/2023 0604 Gross per 24 hour Intake 1000 ml Output 500 ml Net 500 ml LABS: Recent Labs 07/17/23 0548 07/16/23 0558 07/15/23 0418 WBC 11.00 -- 7.64 HB 12.8 -- 12.7 HCT 38.8 -- 38.7 PLT 266 -- 280 NA 138 143 141 K 4.6 4.0 3.8 BUN 33* 39* 38* CREAT 0.98* 1.04* 0.99* GLUC 120* 94 95 ALESSIO High Sensitivity 24 07/10/2023 ALESSIO High Sensitivity 25 07/10/2023 ALESSIO High Sensitivity 25 07/10/2023 Cholesterol, Total (mg/dL) Date Value 07/21/2022 220 12/22/2020 232 HDL Cholesterol (mg/dL) Date Value 07/21/2022 46 12/22/2020 48 LDL Cholesterol (mg/dL) Date Value 07/21/2022 137 12/22/2020 149 Triglyceride (mg/dL) Date Value 07/21/2022 184 12/22/2020 175 Hemoglobin A1C Date Value Ref Range Status 07/21/2022 5.7 (H) 4.3 - 5.6 % Final Comment: [place] [employer] guidelines indicate that patients with HgbA1c in the range 5.7-6.4% are at increased risk for development of diabetes, and intervention by lifestyle modification may be beneficial. HgbA1c greater or equal to 6.5% is considered diagnostic of diabetes. TSH 1.940 05/17/2023 T3 75 07/21/2022 No results found for: FE, SAT, TIBC, MICHELLE IMAGING AND TESTS (personally reviewed) EK07/13/23: sinus rhythm with LBBB - QRS ~ 176msec CXR: 07/13/23 RESULT: Cardiomediastinal silhouette is normal. No consolidative opacity. Linear bands of atelectasis in the lower lobes. No pleural effusion or pneumothorax. Pulmonary vasculature is unremarkable. Echo: 07/12/23 The left ventricle is severely dilated. Left ventricular systolic function is severely decreased. EF = 26 ? 5% (2D biplane). Grade II left ventricular diastolic dysfunction. - The right ventricle is normal in size. Right ventricular systolic function is normal. - There is mild to moderate (1+ - 2+) mitral valve regurgitation. - There is mild (1+) tricuspid valve regurgitation. - There is mild (1+) aortic valve regurgitation. - There is mild to moderate (1+ - 2+) pulmonic valve regurgitation. - Wall motion abnormalities as above. - Exam was compared with the prior echocardiographic exam performed on 09/21/2022. There is no significant change. 07/11/23 Nuc SPECT CONCLUSIONS: 1. SPECT Perfusion Study: Normal Perfusion but abnormal EF. 2. There is no scintigraphic evidence for inducible ischemia. 3. No evidence of scarred myocardium. 4. Left ventricle is severely dilated. The left ventricle systolic function is severely decreased. 5. This is a high risk scan. Cardiac cath 10/2021: mod LAD, D1 prox 40%, mild RCA disease dominant, EF 35% IMPRESSION/ASSESSMENT (Some elements have been copied from my note 07/15, which have been updated where appropriate and all reflect current medical decision making from today 07/17/2023) Sandra Schmitz is a 78 year old female with non-ischemic CM, HTN, Hypothyroidism, LBBB who is admitted with decompensated heart failure. PROBLEM LIST Acute on Chronic Systolic Heart Failure/ Non- Ischemic Cardiomyopathy: NYHA Class III, ACC/AHA Stage C, Warm and euvolemic. NT pro elevated to 2k. Volume status looks good today. On low doses of GDMT LBBB: s/p CUT PLUG PACKER-D 07/16/23 Non-obstructive CAD: stable, ischemic testing recently with no ischemia or infarction. PLAN/RECOMMENDATIONS: GDMT: continue low dose entresto, start toprol XL 12.5mg today. Start PO lasix 20mg daily. Benedict (more content not included)... Normal [facility] ECG COMPLETEon 07-17-2023 ECG COMPLETE Ventricular Rate : 5 4 BPM Atrial Rate : 53 BPM P-R Interval : 133 ms QRS Duration : 133 ms Q-T Interval : 464 ms QTC Calculation(Bazett) : 440 ms Calculated P [place] : 13 degrees Calculated R [place] : -66 degrees Calculated T [place] : 19 degrees Atrial-sensed ventricular-paced complexes Abnormal ECG Confirmed by ROSALIA WARNER MD ([id number]) on 08/23/2023 1:01:26 PM NAME : SANDRA SCHMITZ PID : [id number] : 1945 Gender : Female Race : ORD : [id number] Procedure Date : Jul 17 2023 08:44:51 Edit Date : Aug 23 2023 13:01:29 Diagnosis: Atrial-sensed ventricular-paced complexes Abnormal ECG Confirmed by ROSALIA WARNER MD ([id number]) on 08/23/2023 1:01:26 PM Test Reason : Post-OP Location : [address] : [address] Overread By : ROSALIA WARNER MD Edited By : ROSALIA WARNER MD Referred By : REMINGTON CAI Acquired by : WILFREDO THOMPSON [facility] NURSING PROGon 07-17-2023 NURSING PROG HNO ID: [id number] Author: CHON RAMSEY, RN Service: Nursing Author Type: Registered Nurse Type: Nursing Progress Note Filed: 07/18/2023 08:25 Note Text: Daily note: Spoke with MD Shira . Per EP pt ok for discharge. Ok with pt BP 90/37 and aware pt complaints of some dizziness when moving. PT did orthos and they were negative. Per Shira recheck BP. 1231: pt had another episode of dizziness. per MD Shira. Hold lasix 20mg Discharge cancelled. [facility] THERAPY NTon 07-17-2023 THERAPY NT HNO ID: [id number] Author: ZORAN HILL, PT, DPT Service: Physical Therapy Author Type: Physical Therapist Type: Therapy (PT/OT/Speech/Resp) Filed: 07/17/2023 09:00 Note Text: Physical Therapy Treatment Summary SERVICE DATE: 07/17/2023 SERVICE TIME: 08 to 0844 ROOM: [place] [address] PT 6 Clicks Score: 22 DISCHARGE RECOMMENDATIONS Home Recommended Discharge Disposition Comments: Pt is appropriate for d/c Home with PRN family assist. Recommend initial (2-3 day use) of FWW during ambulation and daughter assit with 2 JOSE home. Expect pt will return to baseline with regular household mobility. Recommended Discharge Equipment: No equipment needs anticipated ASSESSMENT Response to Therapy Interventions: Good Participation in Activities, Improved Tolerance for Activity, On-Track to Achieve Discharge Goals Within session pt educated on pacemaker precautions with handout provided, pt able to progress to block practice of ambulation attempts with FWW, VSS on RA: HR 59-77bpm, Paced, 77 bpm during 50' repeats, BP 109/54 mmHg Supine, 112/70 mmHg sitting, 102/50 mmHg standing; SpO2 90-93% throughout session, however > 92% during 50' ambulation attempt. Pt educated on all home-going recommendations (either sister or daughter to transport). No further skilled inpatient PT needs Identified; all functional mobility needs can be completed with the assistance of nursing staff. PT order will be discharged. Please re-consult should functional mobility needs arise. PRECAUTIONS Fall Risk CURRENT HOSPITAL COURSE Pt initially admitted to [facility] for acute on chronic HFrEF. She was stabilized with IV diuresis however course complicated by hypotension and bradycardia. She was transferred to [facility] for biventricular pacer defibrillator placement Relevant Past Medical History: HFrEF, LBBB, hypothyroidism HOME LIVING Patient Lives With: Family (pt lives with her dtr in a 1 story home) Assistance Available: Part-Time (pt reports that dtr works from home and Sunday typically, but company has been flexible and may allow her to barrow worker upon pt's d/c for first week) Entry To Home: Stairs, Without Rail Number Of Stairs Into Home: 2 Number Of Stairs To Bed/Bath: 0 Tub/Shower Type: tub shower Laundry: on 1st floor, pt and dtr share completion Equipment Owned: Commode- Bedside, Rollator, Walker- Wheeled, Cane PRIOR FUNCTIONAL LEVEL Within Functional Limits per pt, indep with ADL/IADLs prior to admission, ambulates w/o AD, dtr lives with pt and can assist PRN, pt has a dog and enjoys taking her on walks, pt also enjoys crocheting in her spare time SUBJECTIVE Pt agreeable to PT session, now s/p Packemaker placement THERAPY DIAGNOSIS Reduced mobility-other, Decreased activities of daily living (ADL), Muscle Weakness (generalized), Unsteadiness on feet TREATMENT INTERVENTIONS Gait Training (57178), Therapeutic Activity (35806) Timed Code Treatment (minutes): 38 Skilled Treatment Time (minutes): 38 TRAINING AND EDUCATION PROVIDED Anatomy and Impact on Deficits, Assistive Device Use, Benefits of In-Hospital Mobility, Discharge Planning, Disease Specific Education, Expected Functional Level, Falls Prevention, Gait Pattern, Reduction of Deviations, Home Safety, Home Set-up/Modifications, Pain Neuroscience, Patient Exercise/Therapy Program Support Needs, Role of Physical Therapy, Standing Balance, Transfers, Treatment Protocol, Energy Conservation THERAPEUTIC SKILLS USED Activity Dosing, Assessment of Tolerance Including Vitals Response to Activity, Cues for Sequencing/Proper Technique for Activity, Cuing Tactile, Cuing Verbal, Cuing Visual, Management of Critical Lines, Tubes and/or Drains, Movement Facilitation, Muscle Activation Facilitation, Physical Assist, Postural Alignment Correction, Teach-Back for Education FUNCTIONAL STATUS Bed Mobility Rolling: Stand By Assistance Supine To Sit: Stand By Assistance Sit to Supine: Stand By Assistance Scooting: Stand By Assistance Transfers Sit To Stand: Stand By Assistance X 4 attempts in session Stand To Sit: Stand By Assistance Bed to Chair Stand By Assistance Bed To Chair Transfer Type: Stepping Bed To Chair Transfer Equipment: Wheeled Walker Gait Contact Guard Assistance Gait Device: Wheeled Walker General Deviations/Observations: Gabriella decreased, Step length decreased Gait Distance (feet): 50' X 4 Stairs (NT, pt declined) Range of Motion: WFL Except (R ankle DF to neutral) Strength: Strength Limitation Comments Strength Limitation Comments: BLE frossly 3+/5, AROM only GOALS Patient will demonstrate progress with functional mobility to allow safe discharge to home with available support and/or physical assistance., Patient will demonstrate progress to optimize functional mobility, maximize activity tolerance and endurance to maximize function upon discharge. Rehab Potential: Good Progress Toward [place] (more content not included)... Normal [facility] Vancomycin [place] SerPl-mCncon 07-17-2023 Vancomycin random [Mass/Vol] 9.8 ug/mL Low 10.0-20.0 [facility] Comment on above: Order Comment: Speci men Type: BLOOD SPECIMEN Ordering Facility: [facility] Address: [address] [place] [id number] Result Comment: Refe rence ranges and high/low indicator flags are provided as general guidelines only. The treating physician must determine appropriate target levels/dosing based on the specific clinical situation. Performed By: #### 4 091-5 #### [facility] CLIA [id number] [place] [address] [place] XR CHEST 2V FRONTAL/LATon XR CHEST 2V FRONTAL/LAT * * *Final Report* * * DATE OF EXAM: Jul 17 2023 10:05AM [facility]X 5291 - XR CHEST 2V FRONTAL/LAT / PROCEDURE REASON: Other * * * * Physician Interpretation * * * * EXAMINATION: CHEST RADIOGRAPH (2 VIEW FRONTAL and LATERAL) CLINICAL HISTORY: Other, Pacemaker Implant MQ: XC2_6 EXAM DATE/TIME: 07/17/2023 10:05 AM COMPARISON: 07/13/2023 RESULT: Lines, tubes, and devices: AICD Lungs and pleura: No consolidation. No lung mass. No pleural effusion. No pneumothorax. Cardiomediastinal silhouette: Mild cardiomegaly Bones and soft tissues: Unremarkable. IMPRESSION: Cardiomegaly. No acute process seen 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 Apprentice: KEYANA Transcribe Date/Time: Jul 17 2023 10:35A Dictated by : FABIAN BRODERICK MD This examination was interpreted and the report reviewed and electronically signed by: FABIAN BRODERICK MD on Jul 17 2023 10:35AM EST [id number] [facility] ANES PRE-OPon 2023 ANES PRE-OP HNO ID: [id number] Author: GRISELDA SALMERON MD Service: Anesthesiology Author Type: Anesthesiologist Type: Anesthesia Preprocedure Evaluation Filed: 2023 17:02 Note Text: ANESTHESIOLOGY DAY OF SURGERY NOTE : 1945 Procedure Information Anesthesia Start Date/Time: 07/16/23 1311 Procedures: INSERTION PERM IMPLANTABLE DEFIBRILLATOR SYSTEM, W/TRANSVENOUS LEAD(S) - [employer]onic INSERTION CORONARY SINUS/LT VENTRICULAR LEAD W/INITIAL INSERTION OF PACEMAKER/DEFIB GENERATOR Location: EP ROOM 2 / [facility] EP Surgeons: Dilcia Pearson MD Estimated body mass index is 33.55 kg/m? as calculated from the following: Height as of this encounter: 160 cm (5' 3). Weight as of this encounter: 85.9 kg (189 lb 6.4 oz). Most recent hematocrit and potassium results: Hematocrit 38.7 07/15/2023 Potassium 4.0 2023 Relevant Problems CARDIO (+) Acute on chronic 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) (+) Atrial fibrillation (HCC) (+) Chronic 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) (+) Coronary artery disease involving [place] coronary artery of [place] heart without angina pectoris (+) LBBB (left bundle branch block) (+) Left bundle branch block (+) Primary hypertension (+) SVT (supraventricular tachycardia) (HCC) ENDO (+) Hypothyroidism (+) Hypothyroidism, acquired -RENAL (+) Kidney insufficiency PULMONARY (+) Chronic bronchitis (HCC) Other (+) Lateral epicondylitis of left elbow I - PHYSICAL EVALUATION AIRWAY Patient intubated: No. Tracheostomy tube not present Mallampati: II. TM distance: >3 FB. Neck ROM: full ROM without neurological symptoms. Mouth opening: adequate. Short neck: yes. Thick neck: yes DENTAL Normal dental observations. Dental findings: chipped. Additional exam findings: yes. CARDIOVASCULAR Normal cardiovascular observations. Rhythm: regular Rate: normal PULMONARY Normal pulmonary observations. Breath sounds clear to auscultation. II - ANESTHESIA PLAN ASA Score: 4 Anesthetic Plan: general Airway type: ETT The patient is not a current smoker. NPO Status: adequate Beta Lorenzo Monitoring Plan Monitoring plan: standard ASA and invasive hemodynamic monitoring. Monitoring method: arterial Line Post Procedure Analgesic Plan Postoperative analgesic plan: multimodal analgesia. Informed Consent Anesthetic risks, benefits, alternatives, personnel and consent discussed: yes. Patient / Responsible Democrat agrees to proceed: yes Patient / Surrogate agrees to blood products: yes Significant changes in the patient condition since the History and Physical, not otherwise documented in primary service progress note: no. Potential Anesthesia issues that may suggest increased risk of complications or contraindication to planned procedure: none. Vitals Value Taken Time BP 125/72 07/16/23 1113 Pulse 72 07/16/23 1113 Resp 16 07/16/23 1113 Temp 36.8 ?C (98.2 ?F) 07/16/23 1113 SpO2 95 % 07/16/23 1113 Facility-Administered Medications as of 2023 Medication Dose Route Frequency - [Held on Transfer] NaCl 0.9% iv flush bag 20 mL INTRAVENOUS PRN - [Held on Transfer] heparin 5,000 Units injection 5,000 Units SUBCUTANEOUS q 12 H - [COMPLETED] potassium chloride ER 20 mEq tab(s) (KLOR-CON) 20 mEq ORAL ONCE - [Held on Transfer] furosemide 40 mg injection (LASIX) 40 mg INTRAVENOUS DAILY - [Held on Transfer] sacubitril-valsartan 24-26 mg 0.5 tablet (ENTRESTO) 0.5 tablet ORAL BID - [Held on Transfer] ezetimibe 10 mg tab(s) (ZETIA) 10 mg ORAL DAILY - [Held on Transfer] aspirin, enteric coated 81 mg tab(s) 81 mg ORAL DAILY - [Held on Transfer] levothyroxine 88 mcg tab(s) (SYNTHROID) 88 mcg ORAL BEFORE BREAKFAST DAILY Outpatient Medications as of 2023 Medication Sig - acetaminophen (TYLENOL) 500 mg tablet Take 2 tablets by mouth every 8 hours as needed for pain. - ezetimibe (ZETIA) 10 mg tablet Take 1 tablet by mouth once daily. - furosemide (LASIX) 40 mg/4 mL soln Inject 4 mL intravenously once daily. - levothyroxine (LEVOXYL) 88 mcg tablet Take 1 tablet by mouth daily before breakfast. - ondansetron, PF, (ZOFRAN) 4 mg/2 mL soln Inject 4 mg intravenously every 6 hours as needed. - potassium chloride ER (KLOR-CON) 20 mEq tablet Take 2 tablets by mouth once daily. - cyanocobalamin (VITAMIN B-12) 1,000 mcg tab Take 1 tablet by mouth once daily. - Cholecalciferol, Vitamin D3, 50 mcg (2,000 unit) cap Take 2 capsules by mouth once daily. - aspirin, enteric coated (ECOTRIN LOW STRENGTH) 81 mg EC tablet Take 1 tablet by mouth once daily. I have interviewed and examined the patient. I have reviewed the medical record and/or the pre-anesthesia evaluation, pertinent labs, and test results. This contains updated information obtained within 48 hours of Surgery/Procedure. SIGNATURE: Griselda Salmeron MD PATIENT NAME: Sandra Schmitz DATE: July 15 (more content not included)... Normal [facility] Basic metabolic 2000 panelon 2023 Anion gap [Moles/Vol] 17 mmol/L Normal 9-18 [facility] Comment on above: Order Comment: Speci men Type: BLOOD SPECIMEN Ordering Facility: [facility] Address: [address] [place] [address] Performed By: #### 2 4321-2, #### [facility] CLIA [id number] [address] [place] [address] [place] Calcium [Mass/Vol] 9.1 mg/dL Normal 8.5-10.2 [facility] Comment on above: Order Comment: Speci men Type: BLOOD SPECIMEN Ordering Facility: [facility] Address: [address] [place] [address] Performed By: #### 2 4320-2, #### [facility] CLIA [id number] [address] [place] [address] [place] Chloride [Moles/Vol] 105 mmol/L Normal 97-105 [facility] Comment on above: Order Comment: Speci men Type: BLOOD SPECIMEN Ordering Facility: [facility] Address: [address] [place] [address] Performed By: #### 2 2, #### [facility] CLIA [id number] [address] [place] [address] [place] CO2 [Moles/Vol] 21 mmol/L Low 22-30 [facility] Comment on above: Order Comment: Speci men Type: BLOOD SPECIMEN Ordering Facility: [facility] Address: [address] [place] [address] Performed By: #### 2 2, #### [facility] CLIA [id number] [address] [place] [address] [place] Creatinine [Mass/Vol] 1.04 mg/dL High 0.58-0.96 [facility] Comment on above: Order Comment: Speci men Type: BLOOD SPECIMEN Ordering Facility: [facility] Address: [address] [place] [address] Performed By: #### 2 2, #### [facility] CLIA [id number] [address] [place] [address] [place] Creatinine and Glomerular filtration rate.predicted panel (S/P/Bld) 56 mL/min/1.73m??? Low >=60 [facility] Comment on above: Order Comment: Speci men Type: BLOOD SPECIMEN Ordering Facility: [facility] Address: [address] [place] [address] Result Comment: Aaron mated Glomerular Filtration Rate (eGFR) is calculated using the 2020 CKD-EPI creatinine equation. This equation utilizes serum creatinine, sex, and age as parameters. The creatinine assay has traceable calibration to isotope dilution-mass spectrometry. Refer to KDIGO guidelines for clinical interpretation. In patients with unstable renal function, e.g. those with acute kidney injury, the eGFR may not accurately reflect actual GFR. Performed By: #### 2 4320-, #### [facility] CLIA [id number] [place] [address] [place] Glucose [Mass/Vol] 94 mg/dL Normal 74-99 [facility] Comment on above: Order Comment: Lenard jesus Type: BLOOD SPECIMEN Ordering Facility: [facility] Address: [address] [place] [address] Result Comment: The [place] Diabetes Association (ADA) provides guidance for cutoff values for fasting glucose and random glucose. The ADA defines fasting as no caloric intake for at least 8 hours. Fasting plasma glucose results between 100 to 125 mg/dL indicate increased risk for diabetes (prediabetes). Fasting plasma glucose results greater than or equal to 126 mg/dL meet the criteria for diagnosis of diabetes. In the absence of unequivocal hyperglycemia, results should be confirmed by repeat testing. In a patient with classic symptoms of hyperglycemia or hyperglycemic crisis, random plasma glucose results greater than or equal to 200 mg/dL meet the criteria for diagnosis of diabetes. Reference: Standards of Medical Care in Diabetes 2016, [place] Diabetes Association. Diabetes Care. 2016.39(Suppl 1). Performed By: #### 2 4320-06, #### [facility] CLIA [id number] [address] [place] [address] [place] Potassium [Moles/Vol] 4.0 mmol/L Normal 3.7-5.1 [facility] Comment on above: Order Comment: Lenard jesus Type: BLOOD SPECIMEN Ordering Facility: [facility] Address: [address] [place] [address] Performed By: #### 2 4320-, #### [facility] CLIA [id number] [address] [place] [address] [place] Sodium [Moles/Vol] 143 mmol/L Normal 136-144 [facility] Comment on above: Order Comment: Speci men Type: BLOOD SPECIMEN Ordering Facility: [facility] Address: [address] [place] [address] Performed By: #### 2 4321-2, #### [facility] CLIA [id number] [address] [place] [id number] [place] Urea nitrogen [Mass/Vol] 39 mg/dL High 7-21 [facility] Comment on above: Order Comment: Speci men Type: BLOOD SPECIMEN Ordering Facility: [facility] Address: [address] [place] [address] Performed By: #### 2 4321-2, #### [facility] CLIA [id number] [facility] CASE MGT INIT ASSESon 2023 CASE MGT INIT ASSES HNO ID: [id number] Author: ESTELA BRIONES RN Service: ? Author Type: Registered Nurse Type: Care Mgt Initial Assessment Filed: 2023 12:25 Note Text: CARE MANAGEMENT: ASSESSMENT AND DISCHARGE PLAN SERVICE DATE: 2023 SERVICE TIME: 12:24 PM PCP: Mandeep Houser DO Primary Contact: Extended Emergency Contact Information Primary Emergency Contact: Louisa Crouch Mobile Relation: Sister Secondary Emergency Contact: Julia Schmitz Mobile Relation: Daughter Admission Status: Inpatient Insurance Provider: MEDICARE A AND B Discharge Planning requested by: Per Department Practice Potential Transition Plans No Services Indicated Advance Directives Current Advance Directive: Health Care Power of Cut Tobacco Bulker;Living Will In Chart: No Current Living Arrangements and Support Lives with: Other person(s) dtr [place] Type of Residence: Private Residence (House) Does the patient have to climb stairs at home?: Yes;stairs outside the home;stairs within the home Support: Family members How do you manage to accomplish the following: Independent: Ambulation;Bathe/Shower;D ress;Meals/Meal Prep;Going to the bathroom;Medication Management;Transportation to appointments/community Current Services/Equipment Current Post-Acute Service(s): None Discharge Planning Patient Goal(s): General wellness [place] Explained: [place] Given: No Are you interested in bedside delivery of your medications? No Discharge Planning Participant(s): Patient Patient/Family Comments: Caregiver Assessment: Caregiver is ready, willing and able to meet the patient's needs as recommended by the inter-professional team: No Caregiver needed Transport at Discharge: Transportation Arrangements: Car Needs Prior to Discharge: Needs Prior to Discharge: Discharge Prescriptions Post-Acute Discharge Plan: Pt getting pacemaker. 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 Dtr Julia lives with her. SIGNATURE: Estela Briones RN PATIENT NAME: Sandra Schmitz DATE: 2023 TIME: 12:24 PM CONTACT #: [phone] [facility] CONSULTon 2023 CONSULT HNO ID: [id number] Author: PILI WELLS MD Service: Cardiovascular Medicine Author Type: Physician Type: Consults Filed: 2023 16:21 Note Text: CONSULT: ADVANCED HEART FAILURE AND TRANSPLANT CARDIOLOGY SERVICE IMPRESSION/ASSESSMENT: Sandra Schmitz is a 77 year old female with non-ischemic CM, HTN, Hypothyroidism, LBBB who is admitted with decompensated heart failure. PROBLEM LIST Acute on Chronic Systolic Heart Failure/ Non- Ischemic Cardiomyopathy: NYHA Class III, ACC/AHA Stage C, Warm and euvolemic. NT pro elevated to 2k. Volume status looks good today. On low doses of GDMT LBBB: chronic. QRS ~ 170 Non-obstructive CAD: stable, ischemic testing recently with no ischemia or infarction. PLAN/RECOMMENDATIONS: Agree with CUT PLUG PACKER, planning for today. Can likely transition to PO lasix 40mg daily starting tomorrow. GDMT: continue low dose entresto, post CUT PLUG PACKER placement can add toprol XL 12.5mg daily. Re-evaluate tomorrow post CUT PLUG PACKER for additional medications if possible. 2L fluid and 2g Na restriction Check daily weights (standing weight ideal if possible) Measure strict I/O's atleast every shift and record. Please replace electrolytes to maintain K> 4, Mg >2 Thank you for allowing me to participate in the care of Sandra Schmitz. HF team will continue to follow this patient. Feel free to reach out with questions or concerns. Please contact Team A pager for urgent questions/concerns about this patient and for routine questions after-hours or on weekends. [place] [phone]; [place] [phone] Pili Wells MD Advanced Heart Failure and Transplant [facility] [place] [address] Appointment: [phone] ----- --- SERVICE DATE: 2023 SERVICE TIME: 10:00AM CONSULTING PHYSICIAN: pili wells PCP: Mandeep Houser DO ATTENDING: Angelica Silva MD REASON FOR CONSULT: Heart Failure CHIEF COMPLAINT: Bradycardia [R00.1] HISTORY OF PRESENT ILLNESS: Ms. Schmitz is a 77 year old female who presents for decompensated HF and EP eval for CUT PLUG PACKER. Sandra Schmitz has a pmhx of non-ischemic CM, HTN, Hypothyroidism, LBBB, non-obstructive CAD who is transferred to for decompensated HF and EP eval for CUT PLUG PACKER. Ns, Nadir reports that she has been having issues with dyspnea on exertion, orthopnea, PND for the past few months. She states that she was recently re-tried on entresto initially at 24-26mg and due to sxs of dyspnea also started on lasix everyday and farxiga. She had some roula-oral numbness with the farxiga therefore stopped it and her entresto was increase. She continued to feel dyspneic, had headaches, was getting lightheaded and therefore went to the hospital. [facility] she was volume up, hypotensive. She was diuresed and some of her GDMT was stopped. Due to ongoing sxs transferred to [facility]. Today she reports feeling well, no orthopnea, no PND, no abdominal bloating/nausea, vomiting. She still some mild headache PAST MEDICAL HISTORY Diagnosis Date Acute acalculous cholecystitis 05/30/2020 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 09/22/2020 Acute on chronic systolic CHF (congestive heart failure) ([facility]) 05/03/2020 Aspiration pneumonia ([facility]) 05/30/2020 Chest pain 05/03/2020 Chest pressure 01/23/2013 Chronic diastolic congestive heart failure ([facility]) 02/14/2021 Clostridium difficile diarrhea 09/28/2020 Complete uterovaginal prolapse Cystocele, midline Essential hypertension 06/14/2020 Homozygous Factor V Leiden mutation ([facility]) 05/03/2020 Hypothyroidism IBS (irritable bowel syndrome) 01/23/2013 Palpitation CHRONIC Post-operative state 05/24/2020 Rectocele 05/25/2020 Shortness of breath 05/03/2020 Status post laparoscopic hysterectomy 05/30/2020 Tubular adenoma of colon 12/09/2020 Uterine prolapse 05/03/2020 PAST SURGICAL HISTORY Procedure Laterality Date COLONOSCOPY 01/07/2015 COLONOSCOPY 12/05/2021 repeat in 5 years COLONOSCOPY GEN ANES 12/06/2009 X3 LAST ONE IN 2009 EGD 11/08/2012 EGD 12/05/2021 PAST SURGICAL HISTORY OF 05/14/1999 left foot bunionectomy w/screws PAST SURGICAL HISTORY OF 05/14/1981 ectopic w/tube removal PAST SURGICAL HISTORY OF 2009 CYST REMOVED FROM UTERUS PAST SURGICAL HISTORY OF 05/24/2020 TVH, partial colpectomy, anterior colporrhaphy, Dennis transobturator midurethral sling, cystourethroscopy, rectocele repair with perineorrhaphy, laparoscopic lysis of adhesions and excision of bilateral adnexal structures PAST SURGICAL HISTORY OF 09/07/2020 Laparoscopic cholecystectomy with intraoperative cholangiograms. Dr. Ragsdale FAMILY HISTORY Problem Relation Age of Onset Blood Disease Mother Coronary Artery Disease Mother Cancer Mother lung Blood Disease Father (more content not included)... Normal [facility] Magnesium SerPl-mCncon 07-15 Magnesium [Mass/Vol] 2.2 mg/dL Normal 1.7-2.3 [facility] Comment on above: Order Comment: Speci men Type: BLOOD SPECIMEN Ordering Facility: [facility] Address: [address] [place] [address] Performed By: #### 2 4321-2, 34845-2 #### [facility] CLIA [id number] [place] NURSING PROGon 2023 NURSING PROG HNO ID: [id number] Author: ELEONORA ALVARADO RN Service: Nursing Author Type: Registered Nurse Type: Nursing Progress Note Filed: 2023 18:38 Note Text: Nursing Progress Note Topic of Note: post procedure PATIENT NAME: Sandra Schmitz Patient Location: [facility] EP LAB POOL/[facility] EP LAB POOL Room: EP LAB POOL ( INVASIVE CARDIOLOGY) S/p BIV ICD left under general see op notes for meds given during procedure. Right arm arterial line removed in OR. Dressing dry and intact. No signs of hematoma or bleeding noted. ppp. Patient alert oriented x3. Respiration even, no acute distress. 1814 Report called to Tayler rn in pk2c 1824 Patient transferred to 2 via bed in stable condition bedside rn at bedside. This note was completed by: Eleonora Alvarado Normal [facility] NURSING PROG HNO ID: [id number] Author: CHON RAMSEY RN Service: Nursing Author Type: Registered Nurse Type: Nursing Progress Note Filed: 2023 08:57 Note Text: Daily note: 0800: per MD Shira hold pt morning dose of IV lasix. Aware subq heparin held for procedure. Normal [facility] CBC panel Auto (Bld)on 07-14 Erythrocyte distribution width (RBC) [Ratio] 14.7 % Normal 11.5-15.0 [facility] Comment on above: Order Comment: Speci men Type: BLOOD SPECIMENOrdering Facility: [facility] Address: [facility] [address] Performed By: #### 5 8410-2 ####[facility] LABORATORYCLIA [id number] [address] [place] Hematocrit (Bld) [Volume fraction] 38.7 % Normal 36.0-46.0 [facility] Comment on above: Order Comment: Speci men Type: BLOOD SPECIMENOrdering Facility: [facility] Address: [address] [place] [address] Performed By: #### 5 8410-2 ####[facility]ORATORYCLIA [id number] [address] [place] Hemoglobin (Bld) [Mass/Vol] 12.7 g/dL Normal 11.5-15.5 [facility] Comment on above: Order Comment: Speci men Type: BLOOD SPECIMENOrdering Facility: [facility] Address: [address] [place] [address] Performed By: #### 5 8410-2 ####[facility]ORATORYCLIA [id number] [address] [place] MCH (RBC) [Entitic mass] 29.7 pg Normal 26.0-34.0 [facility] Comment on above: Order Comment: Speci men Type: BLOOD SPECIMENOrdering Facility: [facility] Address: [address] [place] [address] Performed By: #### 5 8410-2 ####[facility] LABORATORYCLIA [id number] [address] [place] [facility] MCHC (RBC) [Mass/Vol] 32.8 g/dL Normal 30.5-36.0 [facility] Comment on above: Order Comment: Speci men Type: BLOOD SPECIMENOrdering Facility: [facility] Address: [address] [place] [address] Performed By: #### 5 8410-2 ####[facility]ORATORYCLIA [id number] [address] [place] MCV (RBC) [Entitic vol] 90.6 fL Normal 80.0-100.0 [facility] Comment on above: Order Comment: Speci men Type: BLOOD SPECIMENOrdering Facility: [facility] Address: [address] [place] [address] Performed By: #### 5 8410-2 ####[facility]ORATORYCLIA [id number] [place] [address] [place] Nucleated RBC (Bld) [#/Vol] 10*3/uL Normal <0.01 [facility] Comment on above: Order Comment: Speci men Type: BLOOD SPECIMENOrdering Facility: [facility] Address: [address] [place] [address] Performed By: #### 5 8410-2 ####[facility] LABORATORYCLIA [id number] [place] [id number] [place] Platelet mean volume (Bld) [Entitic vol] 10.2 fL Normal 9.0-12.7 [facility] Comment on above: Order Comment: Speci men Type: BLOOD SPECIMENOrdering Facility: [facility] Address: [address] [place] [address] Performed By: #### 5 8410-2 ####[facility] LABORATORYCLIA [id number] [place] [address] [place] Platelets (Bld) [#/Vol] 280 10*3/uL Normal 150-400 [facility] Comment on above: Order Comment: Speci men Type: BLOOD SPECIMENOrdering Facility: [facility] Address: [address] [place] [address] Performed By: #### 5 8410-2 ####[facility] LABORATORYCLIA [id number] [place] [address] [place] RBC (Bld) [#/Vol] 4.27 10*6/uL Normal 3.90-5.20 [facility] Comment on above: Order Comment: Speci men Type: BLOOD SPECIMENOrdering Facility: [facility] Address: [address] [place] [address] Performed By: #### 5 8410-2 ####[facility] LABORATORYCLIA [id number] [place] [id number] [place] WBC (Bld) [#/Vol] 7.64 10*3/uL Normal 3.70-11.00 [facility] Comment on above: Order Comment: Speci men Type: BLOOD SPECIMENOrdering Facility: [facility] Address: [address] [place] [address] Performed By: #### 5 8410-2 ####[facility]ORATORYCLIA [id number] [place] [address] [place] Comprehensive metabolic 2000 panelon 07-15-2023 Albumin [Mass/Vol] 3.7 g/dL Low 3.9-4.9 [facility] Comment on above: Order Comment: Speci men Type: BLOOD SPECIMEN [facility] Address: [address] [place] [address] Performed By: #### 1 9123-9, 96817-7 #### [facility] CLIA [id number] [address] [place] [address] [place] ALP [Catalytic activity/Vol] 51 U/L Normal 34-123 [facility] Comment on above: Order Comment: Speci men Type: BLOOD SPECIMEN [facility] Address: [address] [place] [address] Performed By: #### 1 9123-9, 69850-6 #### [facility] CLIA [id number] [address] [place] [address] [place] ALT [Catalytic activity/Vol] Normal [facility] Comment on above: Order Comment: Speci men Type: BLOOD SPECIMEN [facility] Address: [address] [place] [address] Result Comment: Unab le to assay due to interference from hemolysis. Suggest reorder as clinically indicated. Performed By: #### 1 9123-9, 17423-9 #### [facility] CLIA [id number] [address] [place] [address] [place] Anion gap [Moles/Vol] 13 mmol/L Normal 9-18 [facility] Comment on above: Order Comment: Speci men Type: BLOOD SPECIMEN [facility] Address: [address] [place] [address] Performed By: #### 1 9123-9, 86983-7 #### [facility] CLIA [id number] [address] [place] [address] [place] AST [Catalytic activity/Vol] Normal [facility] Comment on above: Order Comment: Speci men Type: BLOOD SPECIMEN [facility] Address: [address] [place] [address] Result Comment: Unab le to assay due to interference from hemolysis. Suggest reorder as clinically indicated. Performed By: #### 1 23-9, #### [facility] CLIA [id number] [address] [place] [address] [place] Bilirubin [Mass/Vol] 0.7 mg/dL Normal 0.2-1.3 [facility] Comment on above: Order Comment: Speci men Type: BLOOD SPECIMEN [facility] Address: [address] [place] [address] Performed By: #### 1 9123-01, #### [facility] CLIA [id number] [address] [place] [address] [place] Calcium [Mass/Vol] 9.1 mg/dL Normal 8.5-10.2 [facility] Comment on above: Order Comment: Speci men Type: BLOOD SPECIMEN [facility] Address: [address] [place] [address] Performed By: #### 1 239, #### [facility] CLIA [id number] [address] [place] [address] [place] Chloride [Moles/Vol] 103 mmol/L Normal 97-105 [facility] Comment on above: Order Comment: Speci men Type: BLOOD SPECIMEN [facility] Address: [address] [place] [address] Performed By: #### 1 9123-01, #### [facility] CLIA [id number] [address] [place] [address] [place] CO2 [Moles/Vol] 25 mmol/L Normal 22-30 [facility] Comment on above: Order Comment: Speci men Type: BLOOD SPECIMEN [facility] Address: [address] [place] [address] Performed By: #### 1 239, 45096-1 #### [facility] CLIA [id number] [address] [place] [address] [place] Creatinine [Mass/Vol] 0.99 mg/dL High 0.58-0.96 [facility] Comment on above: Order Comment: Lenard jesus Type: BLOOD SPECIMEN [facility] Address: [address] [place] [address] Performed By: #### 1 9123-9, 43303-4 #### [facility] CLIA [id number] [address] [place] [address] [place] Creatinine and Glomerular filtration rate.predicted panel (S/P/Bld) 59 mL/min/1.73m??? Low >=60 [facility] Comment on above: Order Comment: Lenard jesus Type: BLOOD SPECIMEN [facility] Address: [address] [place] [address] Result Comment: Aaron mated Glomerular Filtration Rate (eGFR) is calculated using the 2020 CKD-EPI creatinine equation. This equation utilizes serum creatinine, sex, and age as parameters. The creatinine assay has traceable calibration to isotope dilution-mass spectrometry. Refer to KDIGO guidelines for clinical interpretation. In patients with unstable renal function, e.g. those with acute kidney injury, the eGFR may not accurately reflect actual GFR. Performed By: #### 1 9123-9, 99184-9 #### [facility] CLIA [id number] [address] [place] [address] [place] Glucose [Mass/Vol] 95 mg/dL Normal 74-99 [facility] Comment on above: Order Comment: Lenard jesus Type: BLOOD SPECIMEN [facility] Address: [address] [place] [address] Result Comment: The [place] [employer] (ADA) provides guidance for cutoff values for fasting glucose and random glucose. The ADA defines fasting as no caloric intake for at least 8 hours. Fasting plasma glucose results between 100 to 125 mg/dL indicate increased risk for diabetes (prediabetes). Fasting plasma glucose results greater than or equal to 126 mg/dL meet the criteria for diagnosis of diabetes. In the absence of unequivocal hyperglycemia, results should be confirmed by repeat testing. In a patient with classic symptoms of hyperglycemia or hyperglycemic crisis, random plasma glucose results greater than or equal to 200 mg/dL meet the criteria for diagnosis of diabetes. Reference: Standards of Medical Care in Diabetes 2016, [place] [employer]. Diabetes Care. 2016.39(Suppl 1). Performed By: #### 1 9122-9, 84127-6 #### [facility] CLIA [id number] [address] [place] [address] [place] Potassium [Moles/Vol] 3.8 mmol/L Normal 3.7-5.1 [facility] Comment on above: Order Comment: Speci men Type: BLOOD SPECIMEN [facility] Address: [address] [place] [address] Performed By: #### 1 9123-01, 99280-0 #### [facility] CLIA [id number] [address] [place] [address] [place] Protein [Mass/Vol] 6.6 g/dL Normal 6.3-8.0 [facility] Comment on above: Order Comment: Speci men Type: BLOOD SPECIMEN [facility] Address: [address] [place] [address] Performed By: #### 1 9123-01, 75657-8 #### [facility] CLIA [id number] [address] [place] [address] [place] Sodium [Moles/Vol] 141 mmol/L Normal 136-144 [facility] Comment on above: Order Comment: Speci men Type: BLOOD SPECIMEN [facility] Address: [address] [place] [address] Performed By: #### 1 9123-01, 33081-2 #### [facility] CLIA [id number] [address] [place] [address] [place] Urea nitrogen [Mass/Vol] 38 mg/dL High 7-21 [facility] Comment on above: Order Comment: Speci men Type: BLOOD SPECIMEN [facility] Address: [address] [place] [address] Performed By: #### 1 9123-01, 21707-7 #### [facility] CLIA [id number] [address] [place] [address] [place] Magnesium SerPl-mCncon 07-14 Magnesium [Mass/Vol] 2.2 mg/dL Normal 1.7-2.3 [facility] Comment on above: Order Comment: Speci men Type: BLOOD SPECIMEN [facility] Address: [address] [place] [address] Performed By: #### 1 9123-9, 44479-3 #### [facility] CLIA [id number] [place] NURSING PROGon 07-15-2023 NURSING PROG HNO ID: [id number] Author: DARIUS GUERRA RN Service: PICC Team Author Type: Registered Nurse Type: Nursing Progress Note Filed: 07/15/2023 11:26 Note Text: PICC/VASCULAR ACCESS PROGRESS NOTE SERVICE DATE: 07/15/2023 SERVICE TIME: 1115 Called to floor for difficult IV access. Placed 20 gauge 2 IV in right forearm under ultrasound guidance. Flushed with 10 mL normal saline, good blood return present. No complications. SIGNATURE: Darius Guerra RN PATIENT NAME: Sandra Schmitz DATE: July 15, 2023 TIME: 11:25 AM PAGER/CONTACT #: [phone] [facility] NURSING PROG HNO ID: [id number] Author: FLORENTINO REBOLLEDO RN Service: ? Author Type: Registered Nurse Type: Nursing Progress Note Filed: 07/15/2023 18:01 Note Text: Other: 0930 Monitor SR-ST 90-110's. other VSS. afebrile. wt 86.4 kg. Heart rate increases with ambulation. denies cp, dizziness, or palpitations at this time. Am labs completed. Medications given as scheduled. ICD placement to be completed tomorrow with EP. pt aware of plan of care. Lungs clear diminished. no cough or wheezes noted. 92% to 94% on RA. abdomen non-tender. + BS. denies n/v. tolerates diet. I/O maintained. 1500 fluid restriction maintained. Voiding yellow urine. Having BM's. non-jahaira edema BLE. Elevated up while in chair. assist standby with walker for ambulation. gait steady. denies pain. call mckeon in reach. 1200 Monitor remains SR 70's. VSS. Assessment above unchanged. Denies cp or dizziness. 93% on RA. denies sob. pt ambulating to bathroom independently. gait steady. call mckeon in reach. 1330 Monitor remains SR. denies cp or dizziness. Assessment above unchanged. lunch delivered. I/O. call mckeon in reach. 1500 Cardiology DIRECTOR OF DONOR RELATIONS in to see pt regarding plan of care. ICD to be placed tomorrow. NPO after midnight tonight except medications. questions and concerns addressed. call mckeon in reach. 1600 Monitor remains SR 90's. VSS. afebrile. denies dizziness or cp. independent in room with steady gait. I/O. Assessment unchanged from above. call mckeon in reach. Normal [facility] THERAPY NTon 07-15-2023 THERAPY NT HNO ID: [id number] Author: DANIELLE JACOBS OT/L Service: Occupational Therapy Author Type: Occupational Therapist Type: Therapy (PT/OT/Speech/Resp) Filed: 07/15/2023 12:15 Note Text: Occupational Therapy Evaluation Summary SERVICE DATE: 07/15/2023 SERVICE TIME: 1006 to 1029 ROOM: [place] [address] OT 6 Clicks Score: 24 DISCHARGE RECOMMENDATIONS Home Recommended Discharge Disposition Comments: Pt scheduled for biventricular pacer defibrillator placement. OT to follow up with pt if necessary post- op. Anticipated Discharge Needs: Physical Assist at Home Physical Assist at Home for: Cleaning, Laundry, Shopping, Transportation Recommended Discharge Equipment: Shower Chair, Grab Bars-Shower ASSESSMENT Response to Therapy Interventions: Good Participation in Activities PRECAUTIONS Fall Risk CURRENT HOSPITAL COURSE Pt initially admitted to [facility] for acute on chronic HFrEF. She was stabilized with IV diuresis however course complicated by hypotension and bradycardia. She was transferred to [facility] for biventricular pacer defibrillator placement Relevant Past Medical History: HFrEF, LBBB, hypothyroidism HOME LIVING Patient Lives With: Family (pt lives with her dtr in a 1 story home) Assistance Available: Part-Time (pt reports that dtr works from home and Sunday typically, but company has been flexible and may allow her to barrow worker upon pt's d/c for first week) Entry To Home: Stairs, Without Rail Number Of Stairs Into Home: 2 Number Of Stairs To Bed/Bath: 0 Tub/Shower Type: tub shower Laundry: on 1st floor, pt and dtr share completion Equipment Owned: Commode- Bedside, Rollator, Walker- Wheeled, Cane PRIOR FUNCTIONAL LEVEL Within Functional Limits per pt, indep with ADL/IADLs prior to admission, ambulates w/o AD, dtr lives with pt and can assist PRN, pt has a dog and enjoys taking her on walks, pt also enjoys crocheting in her spare time Baseline Cognition: Oriented to self, Oriented to place, Oriented to time, Oriented to situation SUBJECTIVE I don't think all of my cylinders are firing just yet COGNITION Orientation Deficits: Other: See Comment (AANDOx3) Responsiveness: Alert, Awake Follows Commands: 3-step Commands THERAPY DIAGNOSIS No Skilled Need TREATMENT INTERVENTIONS Evaluation, Self Fdc Management (89570) Timed Code Treatment (minutes): 8 Skilled Treatment Time (minutes): 23 TRAINING AND EDUCATION PROVIDED Assistive Device Use, Benefits of In-Hospital Mobility, Discharge Planning, Disease Specific Education, Energy Conservation, Expected Functional Level, Functional Mobility Involving ADLs, Grooming Tasks, Lower Extremity Dressing, Role of Occupational Therapy, Standing Balance to Improve [place] with ADLs/Self-Care, Toileting , Transfer - Sit to Stand, Upper Extremity Bathing THERAPEUTIC SKILLS USED Cues for Sequencing/Proper Technique for Activity, Cuing Verbal, Facilitation of Joint Range of Motion, Therapeutic Use of Self, Teach-Back for Education FUNCTIONAL STATUS Activities of Daily Living Assist Level Additional Information Feeding Independent Grooming Supervision Bathing Upper Body Supervision Bathing Lower Body Supervision Dressing Upper Body Supervision Dressing Lower Body Supervision Toileting Supervision Mobility Assist Level Additional Information Bed Mobility Sit To Supine: Supervision Sit to Stand Supervision Stand to Sit Supervision Bed to Chair Toilet/Commode Shower Functional Mobility Stand By Assistance Functional Mobility Device: Wheeled Walker GOALS Rehab Potential: Excellent PLAN OT Frequency: PRN (As Needed) Treatment Interventions: Education, Self Care/Home Management, Functional Mobility Training SIGNATURE: Danielle Jacobs OT/Elsi PATIENT NAME: Sandra Schmitz DATE: July 15, 2023 TIME: 12:15 PM [facility] THERAPY NT HNO ID: [id number] Author: ZORAN HILL, PT, DPT Service: Physical Therapy Author Type: Physical Therapist Type: Therapy (PT/OT/Speech/Resp) Filed: 07/15/2023 09:14 Note Text: Physical Therapy Evaluation Summary SERVICE DATE: 07/15/2023 SERVICE TIME: 830 to 853 ROOM: [place] [address] PT 6 Clicks Score: 23 DISCHARGE RECOMMENDATIONS Home Recommended Discharge Disposition Comments: Pacemaker placement this admission, pt to follow up after intervention as needed. Recommended Discharge Equipment: No equipment needs anticipated ASSESSMENT Response to Therapy Interventions: Good Participation in Activities, Improved Tolerance for Activity, On-Track to Achieve Discharge Goals Within session pt able to complete multiple short ambulation attempts with and without FWW, VSS on RA: HR 70-85 bpm SpO2 > 90 throughout, MAP > 70. Pt limited during mobility by chronic ankle / knee pain, strength / balance appears near baseline. Pt to follow up as needed post pacemaker placement. PRECAUTIONS Fall Risk CURRENT HOSPITAL COURSE ON RNF, RA, upcoming CUT PLUG PACKER device implant this admission Relevant Past Medical History: HFrEF, LBBB, hypothyroidism, multiple abdominal surgerise including cholecystectomy. HOME LIVING Patient Lives With: Family Assistance Available: Part-Time (Daughter works days, may be able to barrow worker for pt first week after d/c to provide 24h assist) Entry To Home: Stairs, Without Rail Number Of Stairs Into Home: 1 (Curb step into door vs 2 steps in from garage) Number Of Stairs To Bed/Bath: 0 Laundry: Pt / daughter share completion, main level Equipment Owned: Rollator, Walker- Wheeled PRIOR FUNCTIONAL LEVEL Within Functional Limits Pt reports indep with ADLs / IADLs, ambualting without AD. Adult daughter lives with pt and assists with household tasks as needed, SUBJECTIVE Pt agreeable to PT session THERAPY DIAGNOSIS Reduced mobility-other, Decreased activities of daily living (ADL), Muscle Weakness (generalized) TREATMENT INTERVENTIONS Evaluation, Gait Training (61032) Timed Code Treatment (minutes): 8 Skilled Treatment Time (minutes): 23 TRAINING AND EDUCATION PROVIDED Anatomy and Impact on Deficits, Assistive Device Use, Benefits of In-Hospital Mobility, Discharge Planning, Disease Specific Education, Expected Functional Level, Falls Prevention, Gait Pattern, Reduction of Deviations, Home Safety, Home Set-up/Modifications, Pain Neuroscience, Patient Exercise/Therapy Program Support Needs, Role of Physical Therapy, Standing Balance, Transfers, Treatment Protocol, Energy Conservation THERAPEUTIC SKILLS USED Activity Dosing, Assessment of Tolerance Including Vitals Response to Activity, Cues for Sequencing/Proper Technique for Activity, Cuing Tactile, Cuing Verbal, Cuing Visual, Management of Critical Lines, Tubes and/or Drains, Movement Facilitation, Muscle Activation Facilitation, Physical Assist, Postural Alignment Correction, Teach-Back for Education FUNCTIONAL STATUS Vital Signs Pulse: (70-85 bpmm SpO2 > 90 thorughout, MAP > 70) Bed Mobility *pt encountered in recliner Scooting: Stand By Assistance Transfers Sit To Stand: Stand By Assistance Stand To Sit: Stand By Assistance Bed to Chair Bed To Chair Transfer Type: Stepping Bed To Chair Transfer Equipment: Wheeled Walker (Trials with no AD, Trials with FWW) Gait Stand By Assistance Gait Device: None, Wheeled Walker General Deviations/Observations: Gabriella decreased, Step length decreased Gait Distance (feet): 75' X 2 Stairs (NT) Range of Motion: WFL Except (R ankle DF to neutral) Strength: Strength Limitation Comments Strength Limitation Comments: BLE frossly 3+/5, AROM only GOALS Patient will demonstrate progress with functional mobility to allow safe discharge to home with available support and/or physical assistance., Patient will demonstrate progress to optimize functional mobility, maximize activity tolerance and endurance to maximize function upon discharge. Rehab Potential: Good Progress Toward Goals: Progressing as expected PLAN PT Frequency: PRN (As Needed) Treatment Interventions: Education, Self Care / Home Management, Energy Conservation Training, Strengthening, Functional Mobility Training, Balance Training, Neuromuscular Re-education, Edema Management, Pain Management Plan for Next Visit: Gait Training, Standing Balance, Standing Tolerance, Sit to Stand Transfers, Stair Training SIGNATURE: Zoran Hill PT, DPT PATIENT NAME: Sandra Schmitz DATE: July 15, 2023 TIME: 9:11 AM Normal [facility] Basic metabolic 2000 panelon 07-14-2023 Anion gap [Moles/Vol] 11 mmol/L Normal 9-18 [facility] Comment on above: Order Comment: Speci men Type: BLOOD SPECIMENOrdering Facility: [facility] Address: [address] [place] [address] Performed By: #### 2 4321-2, 02263-8 ####[facility] LABORATORYCLIA [id number] [place] [address] [place] Calcium [Mass/Vol] 9.2 mg/dL Normal 8.5-10.2 [facility] Comment on above: Order Comment: Speci men Type: BLOOD SPECIMENOrdering Facility: [facility] Address: [address] [place] [address] Performed By: #### 2 4321-2, ####[facility]ORATORYCLIA [id number] [place] [id number] [place] Chloride [Moles/Vol] 104 mmol/L Normal 97-105 [facility] Comment on above: Order Comment: Speci men Type: BLOOD SPECIMENOrdering Facility: [facility] Address: [address] [place] [address] Performed By: #### 2 4321-2, ####[facility]ORATORYCLIA [id number] [place] [address] [place] CO2 [Moles/Vol] 27 mmol/L Normal 22-30 [facility] Comment on above: Order Comment: Speci men Type: BLOOD SPECIMENOrdering Facility: [facility] Address: [address] [place] [address] Performed By: #### 2 4321-2, ####[facility]ATORYCLIA [id number] [place] [address] [place] Creatinine [Mass/Vol] 0.84 mg/dL Normal 0.58-0.96 [facility] Comment on above: Order Comment: Speci men Type: BLOOD SPECIMENOrdering Facility: [facility] Address: [address] [place] [address] Performed By: #### 2 4321-2, ####[facility] [facility] LABORATORYCLIA [id number] [place] [id number] [place] Creatinine and Glomerular filtration rate.predicted panel (S/P/Bld) 72 mL/min/1.73m??? Normal >=60 [facility] Comment on above: Order Comment: Speci men Type: BLOOD SPECIMENOrdering Facility: [facility] Address: [address] [place] [address] Result Comment: Aaron mated Glomerular Filtration Rate (eGFR) is calculated using the 2020 CKD-EPI creatinine equation. This equation utilizes serum creatinine, sex, and age as parameters. The creatinine assay has traceable calibration to isotope dilution-mass spectrometry. Refer to KDIGO guidelines for clinical interpretation. In patients with unstable renal function, e.g. those with acute kidney injury, the eGFR may not accurately reflect actual GFR. Performed By: #### 2 432-, ####[facility] LABORATORYCLIA [id number] [place] [id number] [place] Glucose [Mass/Vol] 138 mg/dL High 74-99 [facility] Comment on above: Order Comment: Lenard jesus Type: BLOOD SPECIMENOrdering Facility: [facility] Address: [address] [place] [address] Result Comment: The [place] [employer] (ADA) provides guidance for cutoff values for fasting glucose and random glucose. The ADA defines fasting as no caloric intake for at least 8 hours. Fasting plasma glucose results between 100 to 125 mg/dL indicate increased risk for diabetes (prediabetes). Fasting plasma glucose results greater than or equal to 126 mg/dL meet the criteria for diagnosis of diabetes. In the absence of unequivocal hyperglycemia, results should be confirmed by repeat testing. In a patient with classic symptoms of hyperglycemia or hyperglycemic crisis, random plasma glucose results greater than or equal to 200 mg/dL meet the criteria for diagnosis of diabetes. Reference: Standards of Medical Care in Diabetes 2016, [place] [employer]. Diabetes Care. 2016.39(Suppl 1). Performed By: #### 2 4320-06, ####[facility] LABORATORYCLIA [id number] [place] [address] [place] Potassium [Moles/Vol] 4.2 mmol/L Normal 3.7-5.1 [facility] Comment on above: Order Comment: Lenard jesus Type: BLOOD SPECIMENOrdering Facility: [facility] Address: [address] [place] [id number] Performed By: #### 2 432-, ####[facility] LABORATORYCLIA [id number] [place] [address] [place] Sodium [Moles/Vol] 142 mmol/L Normal 136-144 [facility] Comment on above: Order Comment: Speci men Type: BLOOD SPECIMENOrdering Facility: [facility] Address: [address] [place] [address] Performed By: #### 2 4321-2, ####[facility] LABORATORYCLIA [id number] [place] [address] [place] Urea nitrogen [Mass/Vol] 30 mg/dL High 7-21 [facility] Comment on above: Order Comment: Speci men Type: BLOOD SPECIMENOrdering Facility: [facility] Address: [address] [place], [place] [address] Performed By: #### 2 4321-2, ####[facility] LABORATORYCLIA [id number] [place] [address] [place] Magnesium SerPl-mCncon 07-13 Magnesium [Mass/Vol] 2.1 mg/dL Normal 1.7-2.3 [facility] Comment on above: Order Comment: Speci men Type: BLOOD SPECIMENOrdering Facility: [facility] Address: [address] [place], [place] [address] Performed By: #### 2 4321-2, ####[facility] LABORATORYCLIA [id number] [place] [address] [place] NURSING PROGon 07-14-2023 NURSING PROG HNO ID: [id number] Author: FLORENTINO REBOLLEDO RN Service: ? Author Type: Registered Nurse Type: Nursing Progress Note Filed: 07/14/2023 18:48 Note Text: Other: 1130 Received pt from CPPU. VSS. afebrile. monitor SR 60's. Asymptomatic. denies cp, dizziness, or palpitations at this time. 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 Dr Penaloza in to see pt and family regarding plan of care. Oriented to room, call mckeon, and surroundings. AANDOX3. pt up with assist X1 with walker for safety. instructed pt to call for assist with all ambulation. I/O maintained. 1500 fluid restriction continues. pt aware of restriction. 94% on RA. denies sob. lungs diminished bases. no cough noted. +1 edema BLE. elevated up while in bed. call mckeon in reach. 1430 Monitor remains SR 70's. Assessment above unchanged. Denies cp, dizziness, or palpitations. Family remains at bedside. I/O maintained. denies pain. call mckeon in reach. 1600 Monitor remains SR. VSS. afebrile. denies cp, dizziness. or palpitations. Pt up with standby assist and walker to bathroom. denies sob. 94% on RA. call mckeon in reach. 1800 Monitor remains SR 80's. HR increases with ambulation. denies cp or palpitations. Tolerates diet. denies n/v. Pt states having frequent stools today before transfer. X1 BM noted since transfer. voiding yellow urine. I/O. call mckeon in reach. Normal [facility] NURSING PROG HNO ID: [id number] Author: MEENA ALFORD RN Service: Nursing Author Type: Registered Nurse Type: Nursing Progress Note Filed: 07/14/2023 11:10 Note Text: Transfer Note: PATIENT NAME: Sandra Schmitz [id number]: Dr. Penaloza, Dr. Silva, and Jose Hill, WILLIAM all visited pt this am and updates given; orders rec'd. Pt's family at bedside. 1055: Patient transferred out to room/unit 3P318/CPPU to [place] [address] in stable condition via wheelchair. Actions taken: Report given/called to CARO Swartz. Pt's family with pt. And took pt belongings. Normal [facility] Basic metabolic 2000 panelon 07-13-2023 Anion gap [Moles/Vol] 9 mmol/L Normal 9-18 [facility] Comment on above: Order Comment: Speci men Type: BLOOD SPECIMENOrdering Facility: [facility] Address: [address] [place] [address] Performed By: #### 2 777-1, 24179-2, 39942-7, 03374-2 ####[facility] LABORATORYCLIA [id number] [place] [address] [place] Calcium [Mass/Vol] 9.3 mg/dL Normal 8.5-10.2 [facility] Comment on above: Order Comment: Speci men Type: BLOOD SPECIMENOrdering Facility: [facility] Address: [address] [place] [address] Performed By: #### 2 777-1, 23298-4, 40349-0, ####[facility]ORATORYCLIA [id number] [place] [address] [place] Chloride [Moles/Vol] 102 mmol/L Normal 97-105 [facility] Comment on above: Order Comment: Speci men Type: BLOOD SPECIMENOrdering Facility: [facility] Address: [address] [place] [address] Performed By: #### 2 777-1, 24782-2, 51334-7, ####[facility]ORATORYCLIA [id number] [place] [address] [place] CO2 [Moles/Vol] 30 mmol/L Normal 22-30 [facility] Comment on above: Order Comment: Speci men Type: BLOOD SPECIMENOrdering Facility: [facility] Address: [address] [place] [address] Performed By: #### 2 777-1, 64117-0, 57024-8, ####[facility]ORATORYCLIA [id number] [place] [address] [place] Creatinine [Mass/Vol] 1.05 mg/dL High 0.58-0.96 [facility] Comment on above: Order Comment: Speci men Type: BLOOD SPECIMENOrdering Facility: [facility] Address: [address] [place] [address] Performed By: #### 2 777-1, 99054-3, 76410-4, ####[facility]ORATORYCLIA [id number] [place] [address] [place] Creatinine and Glomerular filtration rate.predicted panel (S/P/Bld) 55 mL/min/1.73m??? Low >=60 [facility] Comment on above: Order Comment: Speci men Type: BLOOD SPECIMENOrdering Facility: [facility] Address: [address] [place] [address] Result Comment: Aaron mated Glomerular Filtration Rate (eGFR) is calculated using the 2020 CKD-EPI creatinine equation. This equation utilizes serum creatinine, sex, and age as parameters. The creatinine assay has traceable calibration to isotope dilution-mass spectrometry. Refer to KDIGO guidelines for clinical interpretation. In patients with unstable renal function, e.g. those with acute kidney injury, the eGFR may not accurately reflect actual GFR. Performed By: #### 2 777-1, 90071-4, 52800-0, ####[facility] LABORATORYCLIA [id number] [place] [address] [place] Glucose [Mass/Vol] 94 mg/dL Normal 74-99 [facility] Comment on above: Order Comment: Lenard jesus Type: BLOOD SPECIMENOrdering Facility: [facility] Address: [address] [place] [address] Result Comment: The [place] Diabetes [employer] (ADA) provides guidance for cutoff values for fasting glucose and random glucose. The ADA defines fasting as no caloric intake for at least 8 hours. Fasting plasma glucose results between 100 to 125 mg/dL indicate increased risk for diabetes (prediabetes). Fasting plasma glucose results greater than or equal to 126 mg/dL meet the criteria for diagnosis of diabetes. In the absence of unequivocal hyperglycemia, results should be confirmed by repeat testing. In a patient with classic symptoms of hyperglycemia or hyperglycemic crisis, random plasma glucose results greater than or equal to 200 mg/dL meet the criteria for diagnosis of diabetes. Reference: Standards of Medical Care in Diabetes 2016, [place] [employer]. Diabetes Care. 2016.39(Suppl 1). Performed By: #### 2 777-1, 39941-6, 68257-8, 45078-6 ####[facility] LABORATORYCLIA [id number] [place] [address] [place] Potassium [Moles/Vol] 4.7 mmol/L Normal 3.7-5.1 [facility] Comment on above: Order Comment: Lenard jesus Type: BLOOD SPECIMENOrdering Facility: [facility] Address: [address] [place] [address] Performed By: #### 2 777-1, 19307-9, 03901-4, 84485-7 ####[facility]ORATORYCLIA [id number] [place] [address] [place] Sodium [Moles/Vol] 141 mmol/L Normal 136-144 [facility] Comment on above: Order Comment: Speci men Type: BLOOD SPECIMENOrdering Facility: [facility] Address: [address] [place] [address] Performed By: #### 2 777-1, 84779-1, 76823-8, 03105-5 ####[facility]ORATORYCLIA [id number] [place] [address] [place] Urea nitrogen [Mass/Vol] 37 mg/dL High 7- [facility] Comment on above: Order Comment: Speci men Type: BLOOD SPECIMENOrdering Facility: [facility] Address: [address] [place] [address] Performed By: #### 2 777-1, 76378-6, 44133-8, 76890-4 ####[facility]ORATORYCLIA [id number] [place] [address] [facility] CASE MANAGEMon 07-13-2023 CASE MANAGEM HNO ID: [id number] Author: ALIREZA ROBERTS LSW Service: ASSESSMENT Author Type: Collar Folder Operator Type: Care Mgt Progress Note Filed: 07/13/2023 11:11 Note Text: CARE MANAGEMENT PROGRESS NOTE SERVICE DATE: 07/13/2023 SERVICE TIME: 10:59 AM LOS: 3 days Needs Prior to Discharge: To Be Determined;Bed Availability SW reviewed EMR. Per EMR pt. Is waiting for a bed at [facility]. CM will remain available should any further discharge planning needs arise. SIGNATURE: CLARA Luna PATIENT NAME: Sandra Schmitz DATE: July 13, 2023 TIME: 10:58 AM PAGER/CONTACT #: [facility] CBC W Auto Differential pane l (Bld)on 07-13-2023 Basophils (Bld) [#/Vol] 0.07 10*3/uL Normal <0.11 [facility] Comment on above: Order Comment: Speci men Type: BLOOD SPECIMENOrdering Facility: [facility] Address: [address] [place] [address] Performed By: #### 5 7021-8 ####[facility] LABORATORYCLIA [id number] [place] [address] [place] Basophils/100 WBC (Bld) 0.9 % Normal [facility] Comment on above: Order Comment: Speci men Type: BLOOD SPECIMENOrdering Facility: [facility] Address: [address] [place] [address] Performed By: #### 5 7021-8 ####[facility] LABORATORYCLIA [id number] [place] [address] [place] Differential cell count method Nom (Bld) Auto Normal [facility] Comment on above: Order Comment: Speci men Type: BLOOD SPECIMENOrdering Facility: [facility] Address: [address] [place] [address] Performed By: #### 5 7021-8 ####[facility] LABORATORYCLIA [id number] [place] [address] [place] Eosinophils (Bld) [#/Vol] 0.23 10*3/uL Normal <0.46 [facility] Comment on above: Order Comment: Speci men Type: BLOOD SPECIMENOrdering Facility: [facility] Address: [address] [place] [address] Performed By: #### 5 7021-8 ####[facility] LABORATORYCLIA [id number] [place] [address] [place] Eosinophils/100 WBC (Bld) 3.0 % Normal [facility] Comment on above: Order Comment: Speci men Type: BLOOD SPECIMENOrdering Facility: [facility] Address: [address] [place] [address] Performed By: #### 5 7021-8 ####[facility] LABORATORYCLIA [id number] [place] [address] [place] Erythrocyte distribution width (RBC) [Ratio] 14.7 % Normal 11.5-15.0 [facility] Comment on above: Order Comment: Speci men Type: BLOOD SPECIMENOrdering Facility: [facility] Address: [address] [place] [address] Performed By: #### 5 7021-8 ####[facility] LABORATORYCLIA [id number] [place] [address] [place] Hematocrit (Bld) [Volume fraction] 37.5 % Normal 36.0-46.0 [facility] Comment on above: Order Comment: Speci men Type: BLOOD SPECIMENOrdering Facility: [facility] Address: [address] [place] [address] Performed By: #### 5 7021-8 ####[facility] LABORATORYCLIA [id number] [place] [address] [place] Hemoglobin (Bld) [Mass/Vol] 12.0 g/dL Normal 11.5-15.5 [facility] Comment on above: Order Comment: Speci men Type: BLOOD SPECIMENOrdering Facility: [facility] Address: [address] [place] [address] Performed By: #### 5 7021-8 ####[facility] LABORATORYCLIA [id number] [place] [address] [place] Immature granulocytes (Bld) [#/Vol] 0.04 10*3/uL Normal <0.10 [facility] Comment on above: Order Comment: Speci men Type: BLOOD SPECIMENOrdering Facility: [facility] Address: [address] [place] [address] Performed By: #### 5 7021-8 ####[facility] LABORATORYCLIA [id number] [place] [address] [place] Immature granulocytes/100 WBC (Bld) 0.5 % Normal [facility] Comment on above: Order Comment: Speci men Type: BLOOD SPECIMENOrdering Facility: [facility] Address: [address] [place] [address] Performed By: #### 5 7021-8 ####[facility] LABORATORYCLIA [id number] [place] [address] [place] Lymphocytes (Bld) [#/Vol] 2.98 10*3/uL Normal 1.00-4.00 [facility] Comment on above: Order Comment: Speci men Type: BLOOD SPECIMENOrdering Facility: [facility] Address: [address] [place] [address] Performed By: #### 5 7021-8 ####[facility] LABORATORYCLIA [id number] [address] Lymphocytes/100 WBC (Bld) 39.4 % Normal [facility] Comment on above: Order Comment: Speci men Type: BLOOD SPECIMENOrdering Facility: [facility] Address: [address] [place] [address] Performed By: #### 5 7021-8 ####[facility] LABORATORYCLIA [id number] [address] MCH (RBC) [Entitic mass] 29.4 pg Normal 26.0-34.0 [facility] Comment on above: Order Comment: Speci men Type: BLOOD SPECIMENOrdering Facility: [facility] Address: [address] [place] [address] Performed By: #### 5 7021-8 ####[facility] LABORATORYCLIA [id number] [address] MCHC (RBC) [Mass/Vol] 32.0 g/dL Normal 30.5-36.0 [facility] Comment on above: Order Comment: Speci men Type: BLOOD SPECIMENOrdering Facility: [facility] Address: [address] [place] [address] Performed By: #### 5 7021-8 ####[facility] LABORATORYCLIA [id number] [address] MCV (RBC) [Entitic vol] 91.9 fL Normal 80.0-100.0 [facility] Comment on above: Order Comment: Speci men Type: BLOOD SPECIMENOrdering Facility: [facility] Address: [address] [place] [address] Performed By: #### 5 7021-8 ####[facility] LABORATORYCLIA [id number] [address] [place] Monocytes (Bld) [#/Vol] 0.72 10*3/uL Normal <0.87 [facility] Comment on above: Order Comment: Speci men Type: BLOOD SPECIMENOrdering Facility: [facility] Address: [address] [place] [address] Performed By: #### 5 7021-8 ####[facility] LABORATORYCLIA [id number] [place] [address] [place] Monocytes/100 WBC (Bld) 9.5 % Normal [facility] Comment on above: Order Comment: Speci men Type: BLOOD SPECIMENOrdering Facility: [facility] Address: [address] [place] [address] Performed By: #### 5 7021-8 ####[facility] LABORATORYCLIA [id number] [place] [address] [place] Neutrophils (Bld) [#/Vol] 3.52 10*3/uL Normal 1.45-7.50 [facility] Comment on above: Order Comment: Speci men Type: BLOOD SPECIMENOrdering Facility: [facility] Address: [address] [place] [address] Performed By: #### 5 7021-8 ####[facility] LABORATORYCLIA [id number] [address] [place] Neutrophils/100 WBC (Bld) 46.7 % Normal [facility] Comment on above: Order Comment: Speci men Type: BLOOD SPECIMENOrdering Facility: [facility] Address: [address] [place] [address] Performed By: #### 5 7021-8 ####[facility] LABORATORYCLIA [id number] [place] [address] [place] Nucleated RBC (Bld) [#/Vol] 10*3/uL Normal <0.01 [facility] Comment on above: Order Comment: Speci men Type: BLOOD SPECIMENOrdering Facility: [facility] Address: [address] [place] [address] Performed By: #### 5 7021-8 ####[facility] LABORATORYCLIA [id number] [place] [address] [place] Nucleated RBC/100 WBC (Bld) [Ratio] 0.0 /100 WBC Normal [facility] Comment on above: Order Comment: Speci men Type: BLOOD SPECIMENOrdering Facility: [facility] Address: [facility] [address] Performed By: #### 5 7021-8 ####KO LABORATORYCLIA [id number] [place] [address] [place] Platelet mean volume (Bld) [Entitic vol] 10.1 fL Normal 9.0-12.7 [facility] Comment on above: Order Comment: Speci men Type: BLOOD SPECIMENOrdering Facility: [facility] Address: [address] [place] [address] Performed By: #### 5 7021-8 ####[facility] LABORATORYCLIA [id number] [place] [address] [place] Platelets (Bld) [#/Vol] 270 10*3/uL Normal 150-400 [facility] Comment on above: Order Comment: Speci men Type: BLOOD SPECIMENOrdering Facility: [facility] Address: [address] [place] [address] Performed By: #### 5 7021-8 ####[facility] LABORATORYCLIA [id number] [place] [address] [place] RBC (Bld) [#/Vol] 4.08 10*6/uL Normal 3.90-5.20 [facility] Comment on above: Order Comment: Speci men Type: BLOOD SPECIMENOrdering Facility: [facility] Address: [address] [place] [address] [place] [address] Performed By: #### 5 7021-8 ####KO LABORATORYCLIA [id number] [place] [address] [place] WBC (Bld) [#/Vol] 7.56 10*3/uL Normal 3.70-11.00 [facility] Comment on above: Order Comment: Speci men Type: BLOOD SPECIMENOrdering Facility: [facility] Address: [address] [place] [address] Performed By: #### 5 7021-8 ####KO LABORATORYCLIA [id number] [place] [address] [place] CBC panel Auto (Bld)on 07-12 Erythrocyte distribution width (RBC) [Ratio] 14.6 % Normal 11.5-15.0 [facility] Comment on above: Order Comment: Speci men Type: BLOOD SPECIMEN [facility] Address: [address] [place] [address] Performed By: #### 5 8410-2 #### [facility] CLIA [id number] [address] [place] [address] [place] Hematocrit (Bld) [Volume fraction] 41.7 % Normal 36.0-46.0 [facility] Comment on above: Order Comment: Speci men Type: BLOOD SPECIMEN [facility] Address: [address] [place] [address] Performed By: #### 5 8410-2 #### [facility] CLIA [id number] [address] [place] [address] [place] Hemoglobin (Bld) [Mass/Vol] 13.3 g/dL Normal 11.5-15.5 [facility] Comment on above: Order Comment: Speci men Type: BLOOD SPECIMEN [facility] Address: [address] [place] [address] Performed By: #### 5 8410-2 #### [facility] CLIA [id number] [address] [place] [address] [place] MCH (RBC) [Entitic mass] 29.4 pg Normal 26.0-34.0 [facility] Comment on above: Order Comment: Speci men Type: BLOOD SPECIMEN [facility] Address: [address] [place] [address] Performed By: #### 5 8410-2 #### [facility] CLIA [id number] [address] [place] [address] [place] MCHC (RBC) [Mass/Vol] 31.9 g/dL Normal 30.5-36.0 [facility] Comment on above: Order Comment: Speci men Type: BLOOD SPECIMEN [facility] Address: [address] [place] [address] Performed By: #### 5 8410-2 #### [facility] CLIA [id number] [address] [place] [address] [place] MCV (RBC) [Entitic vol] 92.1 fL Normal 80.0-100.0 [facility] Comment on above: Order Comment: Speci men Type: BLOOD SPECIMEN [facility] Address: [address] [place] [address] Performed By: #### 5 8410-2 #### [facility] CLIA [id number] [address] [place] [address] [place] Nucleated RBC (Bld) [#/Vol] 10*3/uL Normal <0.01 [facility] Comment on above: Order Comment: Speci men Type: BLOOD SPECIMEN [facility] Address: [address] [place] [address] Performed By: #### 5 8410-2 #### [facility] CLIA [id number] [address] [place] [address] [place] Platelet mean volume (Bld) [Entitic vol] 10.3 fL Normal 9.0-12.7 [facility] Comment on above: Order Comment: Speci men Type: BLOOD SPECIMEN [facility] Address: [address] [place] [address] Performed By: #### 5 8410-2 #### [facility] CLIA [id number] [address] [place] [address] [place] Platelets (Bld) [#/Vol] 299 10*3/uL Normal 150-400 [facility] Comment on above: Order Comment: Speci men Type: BLOOD SPECIMEN [facility] Address: [address] [place] [address] Performed By: #### 5 8410-2 #### [facility] CLIA [id number] [address] [place] [address] [place] RBC (Bld) [#/Vol] 4.53 10*6/uL Normal 3.90-5.20 [facility] Comment on above: Order Comment: Lenard jesus Type: BLOOD SPECIMEN [facility] Address: [address] [place] [address] Performed By: #### 5 8410-2 #### [facility] CLIA [id number] [place] [id number] [place] WBC (Bld) [#/Vol] 8.78 10*3/uL Normal 3.70-11.00 [facility] Comment on above: Order Comment: Lenard men Type: BLOOD SPECIMEN [facility] Address: [address] [place] [address] Performed By: #### 5 8410-2 #### [facility] CLIA [id number] [place], [place] [id number] [place] CK SerPl-cCncon 07-13-2023 CK [Catalytic activity/Vol] 51 U/L Normal 42-196 [facility] [facility] Comment on above: Order Comment: Lenard jesus Type: BLOOD SPECIMENOrdering Facility: [facility] Address: [address] [place] [address] Performed By: #### 1 9123-9, 13902-8, 2157-6 ####[facility]ATORYCLIA [id number] [place] [id number] [place] CNDSon 07-13-2023 CNDS HNO ID: [id number] Author: REMINGTON CAI MD Service: Hospital Medicine Author Type: Physician Type: Discharge Summary Filed: 07/13/2023 07:47 Note Text: DISCHARGE SUMMARY PATIENT NAME: Sandra Schmitz Code Status: Not on file Highest Readmission Risk Score: 15 The 30 day readmissions risk score is derived from an internally validated risk model which evaluates patient level characteristics, utilization history, medication orders and lab results up until the day of discharge. Patients with a score of 40 or above are considered highest risk for readmission. Specific patient level drivers will be listed at the bottom of the summary. Admission Information Admission Information ADMIT DATE: 07/10/2023 DISCHARGE DATE: 07/13/2023 MY DOCTORS AND MEDICAL TEAM: My Main Hospital Doctor: Remington Cai MD Primary Care Provider: Mandeep Houser DO My Medical Team Members: Treatment Team: Attending Provider: Remington Cai MD Consulting: Álvaro Lobo MD MY CONDITION AT DISCHARGE: Serious condition meaning subject to change unexpectedly REASON I WAS IN THE HOSPITAL: Acute decompensated heart failure SUMMARY OF WHAT HAPPENED WHILE I WAS IN THE HOSPITAL: Able to be diuresed with Lasix but unable to tolerate Entresto or beta-lorenzo. Unable to schedule pacer defibrillator and [place] and contacted [facility] in August to have Dr. Wellington do the procedure. Accepted by Dr. Rahul Bee on hospital medicine OTHER PROBLEMS/DIAGNOSIS: Principal Problem: Acute decompensated heart failure (HCC) Active Problems: Acute on chronic systolic CHF (congestive heart failure) (HCC) Obesity, Class I, BMI 30-34.9 Hypothyroidism Chronic 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) Left bundle branch block Nonischemic cardiomyopathy (HCC) Acute on chronic 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) Resolved Problems: * No resolved hospital problems. * OPERATIONS PERFORMED WHILE IN THE HOSPITAL: None IMPORTANT TEST/PROCEDURES: No procedures performed TEST RESULTS NOT AVAILABLE AT THIS TIME: No pending results Discharge Disposition Discharge Disposition: Acute Care Facility Activity When You Leave the Hospital Limited to: Up with assistance due to concern for dysrhythmia Diet Instructions Other: DIET HEART HEALTHY: Additional Provider to Provider Information: Reason for Admission: Acute decompensated heart failure concern for ventricular tachycardia being the precipitating factor ASSESSMENT/PLAN Sinus bradycardia no events-Entresto and beta-lorenzo held for bradycardia Accepted by Rahul Bee for hospital medicine Procedure to be done by Dr. Dilcia Wellington Consultants: Dr. Lobo for cardiology PROCEDURES: Biventricular pacer defibrillator plan to be done at [facility] Disposition: Transfer to [facility] with consult to Dr. Dilcia Wellington EK07/10/2023 sinus rhythm left bundle branch block with her last prior EKG being the same axis and amplitude but the complex now has moved from QRS duration of 100 ms to 172 ms and this is a new left bundle branch block Echocardiogram: 09/21/2022 - The left ventricle is mildly dilated. Left ventricular systolic function is severely decreased. EF = 29 ? 5% (2D biplane) Grade I left ventricular diastolic dysfunction. Segmental wall motion abnormalities as described above. - The right ventricle is normal in size. Right ventricular systolic function is normal. - There are no significant valvular abnormalities. NUCLEAR STRESS TEST: 07/11/2023 1. SPECT Perfusion Study: Normal Perfusion but abnormal EF. 2. There is no scintigraphic evidence for inducible ischemia. 3. No evidence of scarred myocardium. 4. Left ventricle is severely dilated. The left ventricle systolic function is severely decreased. 5. This is a high risk scan. Gated Stress IR:3D LVEF % 24 Recent Labs 07/13/2351607/12/2361607/11/23601 CK 51 51 49 MCV 91.9 92.0 91.1 MCH 29.4 28.8 28.2 MPV 10.1 10.2 10.2 Recent Labs 07/13/2351607/12/2361607/11/23 06 WBC 7.56 7.69 6.94 RBC 4.08 4.23 4.36 HB 12.0 12.2 12.3 HCT 37.5 38.9 39.7 PLT 270 273 290 MCV 91.9 92.0 91.1 MCH 29.4 28.8 28.2 MPV 10.1 10.2 10.2 ABSNEUT 3.52 3.82 3.26 NEUTP 46.7 49.7 47.1 LYMPHP 39.4 35.5 39.9 MONOP 9.5 9.9 8.6 EODINP 3.0 3.5 3.0 Recent Labs 07/13/2351607/12/2361607/11/23 0602 07/10/23 0722 GLUC 91 89 91 105* NA 143 139 141 141 K 4.3 3.8 4.2 4.3 CHLOR 103 103 103 104 CO2 31* 28 29 28 CREAT 1.02* 0.95 0.90 0.89 BUN 33* 34* 29* 33* ANION 9 8* 9 9 CA 9.1 8.8 9.2 9.9 TPROT -- -- -- 7.5 ALB 3.8* 3.6* 3.6* 4.2 TBILI -- -- -- 0.3 ALKPHOS -- -- -- 61 AST -- -- -- 17 ALT -- -- -- 12 No results for input(s): CRP in the last 720 hours. No results for input(s): LACT in the last 168 hours. Recent Labs (more content not included)... Normal [facility] CNPNon 07-13-2023 CNPN Telephone (FVPRAD) ----- SANDRA SCHMITZ ([id number]) 1945 [place] Date Time Provider Department 07/13/23 RAHUL BEE During your visit today, we recorded the following information about you: Rahul Bee MD 07/13/2023 7:28 AM Signed Hospital Medicine Transfer Received page for transfer request from [facility] to [facility]: Sandra Schmitz is 77 year old female who presented with non ischemic decompensated heart failure EF 26%. Suspected runs of tachycardia of unclear origin. Being transferred for possible CUT PLUG PACKER. Cannot tolerate betablocker. Currently SBP in 100s. No ICD before. Mild CAD. Reason for transfer: Possible CUT PLUG PACKER placement Accepted to hospital medicine service at 7:26PM Rahul Bee MD 7:23 AM Allergies As of Date: 07/13/2023 Noted Allergy Reaction EMILIO INHIBITORS 05/03/2020 14 - Other: See Comments Comments: Short of breath, symptoms of heart failure BETA-BLOCKERS (BETA-ADRENERGIC BL*05/03/2020 14 - Other: See Comments Comments: Short of breath, symptoms of heart failure AUGMENTIN (AMOXICILLIN-POT CLAVUL*01/23/2013 8 - GI Upset CODEINE 10/24/2012 1 - Mental Status Change Comments: Patient felt like she was made out of lead LIPITOR (ATORVASTATIN) 05/05/2020 17 - Myalgia Comments: Muscle aches SULFA (SULFONAMIDE ANTIBIOTICS) 04/28/2020 14 - Other: See Comments AMLODIPINE 04/28/2020 14 - Other: See Comments Comments: lightheaded Date Reviewed: 07/12/2023 Reviewed by: Amira Duncan RN - Fully Assessed Reason for Visit: Hospital To Hospital [[id number]] Prescriptions as of 07/13/2023 - metoprolol succinate ER (TOPROL XL) 25 mg 24 hr tablet Take 1 tablet by mouth once daily. - furosemide (LASIX) 40 mg tablet Take 1 tablet by mouth once daily. - sacubitril-valsartan (ENTRESTO) 49-51 mg tablet Take 1 tablet by mouth two times a day. - levothyroxine (LEVOXYL) 88 mcg tablet Take 1 tablet by mouth once daily. Take on empty stomach. For Thyroid - cyanocobalamin (VITAMIN B-12) 1,000 mcg tab Take 1 tablet by mouth once daily. - benzonatate (TESSALON PERLES) 100 mg capsule Take 1 capsule by mouth three times daily as needed for cough. - Cholecalciferol, Vitamin D3, 50 mcg (2,000 unit) cap Take 2 capsules by mouth once daily. - OREGANO OIL ORAL Take by mouth once daily. - L. acidophilus/L. rhamnosus (FLORAJEN WOMEN ORAL) Take 1 tablet by mouth as needed. - ZINC ORAL Take 50 mg by mouth as needed. - aspirin, enteric coated (ECOTRIN LOW STRENGTH) 81 mg EC tablet Take 1 tablet by mouth once daily. Facility-Administered Medications as of 07/13/2023 - potassium chloride ER 40 mEq tab(s) (KLOR-CON) - ondansetron (PF) 4 mg injection (ZOFRAN) - acetaminophen 1,000 mg tab(s) (TYLENOL) - levothyroxine 88 mcg tab(s) (SYNTHROID) - docusate sodium 100 mg cap(s) (COLACE) - bisacodyl 10 mg suppository (DULCOLAX) - traZODone 25 mg tab(s) (DESYREL) - NaCl 0.9% iv flush bag - furosemide 40 mg injection (LASIX) - sodium chloride 0.9 % (flush) 2-10 mL (BD POSIFLUSH) - perflutren lipid microspheres 1.1 mg/mL 1.3 mL injection (DEFINITY) - ezetimibe 10 mg tab(s) (ZETIA) - sodium chloride 0.9 % (flush) 2-10 mL (BD POSIFLUSH) - perflutren lipid microspheres 1.1 mg/mL 1.3 mL injection (DEFINITY) - aspirin, enteric coated 81 mg tab(s) Problem List As Of Date 07/13/2023 Noted Resolved IBS (irritable bowel syndrome) [K58.9] 01/23/2013 Palpitations [R00.2] 12/16/2014 Obesity, Class I, BMI 30-34.9 [E66.9] 03/10/2020 Shortness of breath [R06.02] 05/03/2020 06/14/2020 Acute on chronic systolic CHF (congestive heart*05/03/2020 Homozygous Factor V Leiden mutation (HCC) [D68.*05/03/2020 Hypothyroidism [E03.9] 01/24/2018 Chest pain [R07.9] 05/03/2020 06/14/2020 Post-operative state [Z98.890] 05/24/2020 06/14/2020 Rectocele [N81.6] 05/25/2020 Cystocele, midline [N81.11] 05/25/2020 Aspiration pneumonia (HCC) [J69.0] 05/30/2020 09/22/2020 Acute acalculous cholecystitis [K81.0] 05/30/2020 Primary hypertension [I10] 06/14/2020 Acute idiopathic gout involving toe of left cristal*09/22/2020 Diverticulitis [K57.92] 09/29/2020 Hypokalemia [E87.6] 09/29/2020 Hospital discharge follow-up [Z09] 12/06/2020 Tubular adenoma of colon [D12.6] 12/09/2020 Mixed hyperlipidemia [E78.2] 12/29/2020 Chronic pain of right ankle [M25.571, G89.29] 12/29/2020 Kidney insufficiency [N28.9] 12/29/2020 Chronic combined systolic and diastolic congest*02/14/2021 Valvular heart disease [I38] 04/06/2021 Colon cancer screening [Z12.11] 04/06/2021 Left bundle branch block [I44.7] 05/23/2021 Left shoulder pain [M25.512] 07/11/2021 Lateral epicondylitis of left elbow [M77.12] 07/11/2021 Cardiomegaly [I51.7] 02/13/2022 Chronic bilateral thoracic back pain [M54.6, G8*07/18/2022 Rib pain on right side [R07.81] 07/18/2022 Somatic dysfunction of rib [M99.08] 07/18/2022 Somatic dysfunction of (more content not included)... Normal [facility] CONSULTon 07-13-2023 CONSULT HNO ID: [id number] Author: BRUNO PENALOZA MD Service: Electrophysiology Author Type: Physician Type: Consults Filed: 07/14/2023 11:43 Note Text: [facility]ARDI[facility]ASCULAR [facility]ICINE CONSULT NOTE Sandra Schmitz [id number] PRIMARY SERVICE: Internal Medicine CONSULTING SERVICE: Cardiovascular Medicine: Electrophysiology DATE OF ADMISSION: 07/13/2023 DATE OF CONSULT: 07/13/2023 REASON FOR CONSULT Consideration for CUT PLUG PACKER-D HISTORY OF PRESENT ILLNESS Sandra Schmitz is a 77 year old female, who presented initially to [facility] ER due to concerns for chest pressure with associated postural lightheadedness and bendopnea. Shew as subsequently admitted for further evaluation and management. She underwent lexiscan which was negative for inducible ischemia and transthoracic echocardiogram demonstrated persistently reduced ejection fraction of <35%. There was difficulty initiating GDMT due to hypotension and bradycardia. Thus [facility] EP was consutled for consideration for inpatient CUT PLUG PACKER implantation given her longstanding LBBB, dating back to March 2020-echocardiogram after this demonstrated reduced ejection fraction of ~40%. Prior to this, in September of 2018, she had normal QRS duration and ECHO in 2017 demonstrated normal LVEF. Today, Ms. Schmitz reports that she has noted improvement in chest pressure. She tells me that prior to being admitted, there were several attempts to optimize her GDMT including utilization of Entresto and SGL2i. She did not tolerate SGL2i and higher doses of Entresto resulted in hypotension. PAST MEDICAL HISTORY Nonischemic HFrEF (~26%--07/12/2023) dating back to 2019 with chronic LBBB, PAST MEDICAL HISTORY Diagnosis Date Acute acalculous cholecystitis 05/30/2020 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 09/22/2020 Acute on chronic systolic CHF (congestive heart failure) (HCC) 05/03/2020 Aspiration pneumonia (HCC) 05/30/2020 Chest pain 05/03/2020 Chest pressure 01/23/2013 Chronic diastolic congestive heart failure (HCC) 02/14/2021 Clostridium difficile diarrhea 09/28/2020 Complete uterovaginal prolapse Cystocele, midline Essential hypertension 06/14/2020 Homozygous Factor V Leiden mutation (HCC) 05/03/2020 Hypothyroidism IBS (irritable bowel syndrome) 01/23/2013 Palpitation CHRONIC Post-operative state 05/24/2020 Rectocele 05/25/2020 Shortness of breath 05/03/2020 Status post laparoscopic hysterectomy 05/30/2020 Tubular adenoma of colon 12/09/2020 Uterine prolapse 05/03/2020 PAST SURGICAL HISTORY Procedure Laterality Date COLONOSCOPY 01/07/2015 COLONOSCOPY 12/05/2021 repeat in 5 years COLONOSCOPY GEN ANES 12/06/2009 X3 LAST ONE IN 2009 EGD 11/08/2012 EGD 12/05/2021 PAST SURGICAL HISTORY OF 05/14/1999 left foot bunionectomy w/screws PAST SURGICAL HISTORY OF 05/14/1981 ectopic w/tube removal PAST SURGICAL HISTORY OF 2009 CYST REMOVED FROM UTERUS PAST SURGICAL HISTORY OF 05/24/2020 TVH, partial colpectomy, anterior colporrhaphy, Dennis transobturator midurethral sling, cystourethroscopy, rectocele repair with perineorrhaphy, laparoscopic lysis of adhesions and excision of bilateral adnexal structures PAST SURGICAL HISTORY OF 09/07/2020 Laparoscopic cholecystectomy with intraoperative cholangiograms. Dr. Ragsdale FAMILY HISTORY FAMILY HISTORY Problem Relation Age of Onset Blood Disease Mother Coronary Artery Disease Mother Cancer Mother lung Blood Disease Father Coronary Artery Disease Father Heart Father pacemaker Diabetes Father Breast Cancer Sister younger sis. COPD Brother Hypertension Brother Heart disease Brother Coronary Artery Disease Maternal Grandmother Ischemic Heart Disease Maternal Grandfather Coronary Artery Disease Maternal Grandfather Coronary Artery Disease Daughter SOCIAL HISTORY Social History Tobacco Use Smoking status: Former Types: Cigarettes Quit date: 10/22/2002 Years since quittin.7 Smokeless tobacco: Never Vaping Use Vaping Use: Never used Substance Use Topics Alcohol use: No Drug use: No HOME MEDICATIONS acetaminophen (TYLENOL) 500 mg tabletTake 2 tablets by mouth every 8 hours as needed for pain.Disp: Rfl: ezetimibe (ZETIA) 10 mg tabletTake 1 tablet by mouth once daily.Disp: Rfl: furosemide (LASIX) 40 mg/4 mL solnInject 4 mL intravenously once daily.Disp: Rfl: levothyroxine (LEVOXYL) 88 mcg tabletTake 1 tablet by mouth daily before breakfast.Disp: Rfl: ondansetron, PF, (ZOFRAN) 4 mg/2 mL solnInject 4 mg intravenously every 6 hours as needed.Disp: Rfl: potassium chloride ER (KLOR-CON) 20 mEq tabletTake 2 tablets by mouth once daily.Disp: Rfl: cyanocobalamin (VITAMIN B-12) 1,000 mcg tabTake 1 tablet by mouth once daily.Disp: 30 tabletRfl: 2 Cholecalciferol, Vitamin D3, 50 mcg (2,000 unit) capTake 2 capsules by mouth once daily.Disp: Rfl: aspirin, enteric coated (ECOTRIN LOW STRENGTH) 81 mg EC tabletTak (more content not included)... Normal [facility] ECG COMPLETEon 07-13-2023 ECG COMPLETE Ventricular Rate : 5 8 BPM Atrial Rate : 58 BPM P-R Interval : 148 ms QRS Duration : 177 ms Q-T Interval : 485 ms QTC Calculation(Bazett) : 477 ms Calculated P [place] : 36 degrees Calculated R [place] : -23 degrees Calculated T [place] : 151 degrees Sinus rhythm Left bundle branch block Confirmed by ROSALIA WARNER MD ([id number]) on 08/23/2023 1:01:19 PM NAME : SANDRA SCHMITZ PID : [id number] : 1945 Gender : Female Race : ORD : [id number] Procedure Date : Jul 13 2023 17:24:10 Edit Date : Aug 23 2023 13:01:20 Diagnosis: Sinus rhythm Left bundle branch block Confirmed by ROSALIA WARNER MD ([id number]) on 08/23/2023 1:01:19 PM Test Reason : Shortness of Breath Location : 400 : FVEKG 3P31 Overread By : ROSALIA WARNER MD Edited By : ROSALIA WARNER MD Referred By : REMINGTON CAI Acquired by : ILDEFONSO SANCHEZ [facility] HISTORY PHYSICALon HISTORY PHYSICAL HNO ID: [id number] Author: LOUISA CAMP DO Service: Hospital Medicine Author Type: Physician Type: H&P Filed: 07/13/2023 18:22 Note Text: Hospital Medicine Admission History and Physical PRIMARY SERVICE: HOSPITAL MEDICINE Days: Page or epic chat me directly Evenings: Page hospital medicine pager [phone] PATIENT NAME: Sandra Schmitz DATE of SERVICE: July 13, 2023 TIME of SERVICE: 3:14 PM PCP: Mandeep Houser CODE STATUS: No Order ASSESSMENT/PLAN SUMMARY: 77yo female PMH HFrEF, LBBB, hypothyroidism, initially admitted to [facility] for acute on chronic HFrEF. She was stabilized with IV diuresis however course complicated by hypotension and bradycardia. She was transferred to [facility] for biventricular pacer defibrillator placement Acute on chronic HFrEF Afib Sinus bradycardia LBBB ECHO () LVEF 26% On 2L NC wean as tolerated Cont diureses with IV toresemide. Replete electorlytes PRN Telemetry Strict I/Os Holding entresto, BB in s/o hypotension and BB EP following Plan for procedure possibly Sunday (06/17) SUBJECTIVE CHIEF COMPLAINT: No chief complaint on file. HPI: Sandra Schmitz is a 77 year old female presented with past medical history of severe left ventricular systolic dysfunction with combined systolic diastolic heart failure severe cardiomyopathy nonischemic with normal coronaries with desynchronized left ventricular contractions who presents with chest discomfort and some shortness of breath to the emergency department. She was recently seen in the office ()06/04/2023) by Dr. Oneill for cardiology. She had been having palpitations that he was concerned about ventricular tachycardia or paroxysmal atrial fibrillation. She has seen Dr. Greenfield the densitometer reader. She is to be scheduled for pacer defibrillator implantation. Her exam shows some crackles in the right base HJR to the jaw. Dr. Oneill thought that she was probably having runs of ventricular tachycardia or atrial fibrillation palpitations she was experiencing prior to this. Patient was stabilized on the day stepdown unit. We had to hold her beta-lorenzo and Entresto she became symptomatic with hypotension and also with the beta-lorenzo bradycardic. Crackles improved with Lasix and she was On aspirin. We tried to get the procedure scheduled in [place] but they had no openings and Dr. Castro was able to contact Dr. Wellington and patient will be transferred to [facility] on hospital medicine service for her biventricular pacer defibrillator placement. COMPLETE REVIEW OF SYSTEMS: 14 point ROS reviewed and negative aside from that mentioned in HPI. OBJECTIVE 03/01/24 1434 BP: 113/58 Resp: 18 Temp: 36.3 ?C (97.4 ?F) TempSrc: Temporal SpO2: 97% PHYSICAL EXAM: General appearance: Cooperative. In no distress. Skin: Warm and dry. No rashes or lesions noted. Head: Normocephalic. Atraumatic. Eyes: PERRL. EOMI. Ears: External ears normal. Nose: Mucosa without erythema or lesions. Oropharynx: Moist. Neck: Supple. Heart: Regular rate and rhythm. No murmurs appreciated. Lungs: Lungs CTA. No wheezes, rhonchi, or rales. Abdomen: Soft. Neuro: Awake, alert, and oriented x3. Cranial nerves II-XII grossly intact. Extremities: No deformities. No cyanosis or clubbing. No LE edema. DATA: Previous Labs: Reviewed Previous Imaging: Reviewed SIGNATURE: Louisa Camp DO PATIENT NAME: Sandra Schmitz DATE: July 13, 2023 TIME: 3:14 PM Discussed with: Patient, RN and Patient understands r/b/a and is agreeable to current plan. Normal [facility] Magnesium [facility] 07-12 Magnesium [Mass/Vol] 2.1 mg/dL Normal 1.7-2.3 [facility] Comment on above: Order Comment: Speci men Type: BLOOD SPECIMENOrdering Facility: [facility] Address: [address] [place] [address] Performed By: #### 2 777-1, 85839-9, 47796-3, 70228-6 ####[facility] LABORATORYCLIA [id number] [address] [place] Magnesium [Mass/Vol] 2.1 mg/dL Normal 1.7-2.3 [facility] Comment on above: Order Comment: Speci men Type: BLOOD SPECIMENOrdering Facility: [facility] Address: [address] [place] [address] Performed By: #### 1 9123-9, 92199-7, 215-6 ####[facility]ORATORYCLIA [id number] [place] [address] [place] [facility]12 Natriuretic peptide.B prohormone N-Terminal [Mass/Vol] 2522 pg/mL High <450 [facility] Comment on above: Order Comment: Speci men Type: BLOOD SPECIMENOrdering Facility: [facility] Address: [address] [place] [address] Performed By: #### 2 777-1, 16007-8, 70997-2, 84492-5 ####[facility]ORATORYCLIA [id number] [place] [id number] [facility] NURSING PROGon 07-13-2023 NURSING PROG HNO ID: [id number] Author: MARY LOU CRUZ RN Service: Nursing Author Type: Registered Nurse Type: Nursing Progress Note Filed: 07/13/2023 16:48 Note Text: 1425 Pt arrived to unit with transport from [facility] in stable condition. Tele SR on monitor. Pt oriented to unit and plan of care 1600 Dr. Camp into see pt. Attempting to wean O2 at this time [facility] NURSING PROG HNO ID: [id number] Author: MISTY ASCENCIO, RN Service: Nursing Author Type: Registered Nurse Type: Nursing Progress Note Filed: 07/13/2023 11:31 Note Text: PATIENT EDUCATION HEART FAILURE PATIENT NAME: Sandra Schmitz PATIENT LOCATION: [place] [id number] SURVIVAL SKILLS: Low Sodium Diet Weight Monitoring and Dry Weight Importance of Follow Up after Discharge Fluid Restriction, if applicable Heart Failure Medications Symptom Management related to heart failure Activity / Physical Exercise Recommendations Smoking cessation counseling if applicable When Patient Should Call Provider Follow up visit for CHF education. Survival Skills revieved. No questions @ this time. Awaiting transfer to [facility]. Electronically Signed By: Misty Ascencio [facility] Phosphate SerPl-ncon 07-12 Phosphate [Mass/Vol] 3.1 mg/dL Normal 2.7-4.8 [facility] Comment on above: Order Comment: Speci men Type: BLOOD SPECIMENOrdering Facility: [facility] Address: [address] [place] [address] Performed By: #### 2 777-1, 75340-7, 83201-8, ####[facility] LABORATORYCLIA [id number] [place] [id number] [place] Renal function 2000 panelon 07-13-2023 Albumin [Mass/Vol] 3.8 g/dL Low 3.9-4.9 [facility] Comment on above: Order Comment: Speci men Type: BLOOD SPECIMENOrdering Facility: [facility] Address: [address] [place] [address] Performed By: #### 1 9123-9, 64072-7, 2156-10 ####[facility]ORATORYCLIA [id number] [place] [address] [place] Anion gap [Moles/Vol] 9 mmol/L Normal 9-18 [facility] Comment on above: Order Comment: Speci men Type: BLOOD SPECIMENOrdering Facility: [facility] Address: [address] [place] [address] Performed By: #### 1 9123-9, , 2156-10 ####[facility]ORATORYCLIA [id number] [place] [address] [place] Calcium [Mass/Vol] 9.1 mg/dL Normal 8.5-10.2 [facility] Comment on above: Order Comment: Speci men Type: BLOOD SPECIMENOrdering Facility: [facility] Address: [address] [place] [address] Performed By: #### 1 9123-9, , 2156-10 ####[facility]ORATORYCLIA [id number] [place] [address] [place] Chloride [Moles/Vol] 103 mmol/L Normal 97-105 [facility] Comment on above: Order Comment: Speci men Type: BLOOD SPECIMENOrdering Facility: [facility] Address: [address] [place] [address] Performed By: #### 1 9123-9, 75109-1, 2156-10 ####[facility] LABORATORYCLIA [id number] [place] [address] [place] CO2 [Moles/Vol] 31 mmol/L High 22-30 [facility] Comment on above: Order Comment: Lenard jesus Type: BLOOD SPECIMENOrdering Facility: [facility] Address: [address] [place] [address] Performed By: #### 1 9123-9, 22416-3, 2156-10 ####[facility]ORATORYCLIA [id number] [place] [id number] [place] Creatinine [Mass/Vol] 1.02 mg/dL High 0.58-0.96 [facility] [facility] Comment on above: Order Comment: Lenard jesus Type: BLOOD SPECIMENOrdering Facility: [facility] Address: [address] [place] [address] Performed By: #### 1 9123-9, , 2156-10 ####[facility] LABORATORYCLIA [id number] [place] [id number] [place] Creatinine and Glomerular filtration rate.predicted panel (S/P/Bld) 57 mL/min/1.73m??? Low >=60 [facility] Comment on above: Order Comment: [facility] Type: BLOOD SPECIMENOrdering Facility: [facility] Address: [address] [place] [address] Result Comment: Aaron mated Glomerular Filtration Rate (eGFR) is calculated using the 2020 CKD-EPI creatinine equation. This equation utilizes serum creatinine, sex, and age as parameters. The creatinine assay has traceable calibration to isotope dilution-mass spectrometry. Refer to KDIGO guidelines for clinical interpretation. In patients with unstable renal function, e.g. those with acute kidney injury, the eGFR may not accurately reflect actual GFR. Performed By: #### 1 9123-9, 57814-7, 2156-10 ####[facility] LABORATORYCLIA [id number] [place] [id number] [place] Glucose [Mass/Vol] 91 mg/dL Normal 74-99 [facility] Comment on above: Order Comment: [facility] Type: BLOOD SPECIMENOrdering Facility: [facility] Address: [address] [place] [address] Result Comment: The [place] Diabetes [employer] (ADA) provides guidance for cutoff values for fasting glucose and random glucose. The ADA defines fasting as no caloric intake for at least 8 hours. Fasting plasma glucose results between 100 to 125 mg/dL indicate increased risk for diabetes (prediabetes). Fasting plasma glucose results greater than or equal to 126 mg/dL meet the criteria for diagnosis of diabetes. In the absence of unequivocal hyperglycemia, results should be confirmed by repeat testing. In a patient with classic symptoms of hyperglycemia or hyperglycemic crisis, random plasma glucose results greater than or equal to 200 mg/dL meet the criteria for diagnosis of diabetes. Reference: Standards of Medical Care in Diabetes 2016, [place] [employer]. Diabetes Care. 2016.39(Suppl 1). Performed By: #### 1 9123-9, , 2156-10 ####[facility] LABORATORYCLIA [id number] [place] [address] [place] Phosphate [Mass/Vol] 3.2 mg/dL Normal 2.7-4.8 [facility] Comment on above: Order Comment: Lenard jesus Type: BLOOD SPECIMENOrdering Facility: [facility] Address: [address] [place] [address] Performed By: #### 1 9123-9, , 2156-10 ####KO LABORATORYCLIA [id number] [place] [address] [place] Potassium [Moles/Vol] 4.3 mmol/L Normal 3.7-5.1 [facility] Comment on above: Order Comment: Lenard jesus Type: BLOOD SPECIMENOrdering Facility: [facility] Address: [address] [place] [address] Performed By: #### 1 9123-9, , 2156-10 ####KO LABORATORYCLIA [id number] [place] [id number] [place] Sodium [Moles/Vol] 143 mmol/L Normal 136-144 [facility] Comment on above: Order Comment: Lenard jesus Type: BLOOD SPECIMENOrdering Facility: [facility] Address: [address] [place] [address] Performed By: #### 1 9123-9, , 2156-10 ####KO LABORATORYCLIA [id number] [place] [id number] [place] Urea nitrogen [Mass/Vol] 33 mg/dL High 7- [facility] Comment on above: Order Comment: Speci edin Type: BLOOD SPECIMENOrdering Facility: [facility] Address: [address] [place] [address] Performed By: #### 1 9123-9, 60842-1, 2157-6 ####[facility] LABORATORYCLIA [id number] [place] [id number] [place] XR CHEST 2V FRONTAL/LATon XR CHEST 2V FRONTAL/LAT * * *Final Report* * * DATE OF EXAM: Jul 13 2023 5:00PM FVX 5291 - XR CHEST 2V FRONTAL/LAT / PROCEDURE REASON: Shortness of breath * * * * Physician Interpretation * * * * FRONTAL AND LATERAL CHEST RADIOGRAPHS HISTORY: Shortness of breath. TECHNIQUE: Frontal and lateral views of the chest were obtained. COMPARISON: 07/10/2023 RESULT: Cardiomediastinal silhouette is normal. No consolidative opacity. Linear bands of atelectasis in the lower lobes. No pleural effusion or pneumothorax. Pulmonary vasculature is unremarkable. IMPRESSION: No acute cardiopulmonary process. 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 Transcribe Date/Time: Jul 13 2023 5:02P Dictated by : LILI MARSH MD This examination was interpreted and the report reviewed and electronically signed by: LILI MARSH MD on Jul 13 2023 5:03PM EST [id number] Normal [facility] CBC W Auto Differential pane l (Bld)on 07-12-2023 Basophils (Bld) [#/Vol] 0.08 10*3/uL Normal <0.11 [facility] Comment on above: Order Comment: Speci edni Type: BLOOD SPECIMENOrdering Facility: [facility] Address: [address] [place] [address] Performed By: #### 5 7021-8 ####[facility] LABORATORYCLIA [id number] [place] [id number] [place] Basophils/100 WBC (Bld) 1.0 % Normal [facility] Comment on above: Order Comment: Speci men Type: BLOOD SPECIMENOrdering Facility: [facility] Address: [address] [place] [address] Performed By: #### 5 7021-8 ####KO LABORATORYCLIA [id number] [address] [place] Differential cell count method Nom (Bld) Auto Normal [facility] Comment on above: Order Comment: Speci men Type: BLOOD SPECIMENOrdering Facility: [facility] Address: [address] [place] [address] Performed By: #### 5 7021-8 ####KO LABORATORYCLIA [id number] [place] [address] [place] Eosinophils (Bld) [#/Vol] 0.27 10*3/uL Normal <0.46 [facility] Comment on above: Order Comment: Speci men Type: BLOOD SPECIMENOrdering Facility: [facility] Address: [address] [place] [address] Performed By: #### 5 7021-8 ####KO LABORATORYCLIA [id number] [address] [place] Eosinophils/100 WBC (Bld) 3.5 % Normal [facility] Comment on above: Order Comment: Speci men Type: BLOOD SPECIMENOrdering Facility: [facility] Address: [address] [place] [address] Performed By: #### 5 7021-8 ####KO LABORATORYCLIA [id number] [address] [place] Erythrocyte distribution width (RBC) [Ratio] 14.8 % Normal 11.5-15.0 [facility] Comment on above: Order Comment: Speci men Type: BLOOD SPECIMENOrdering Facility: [facility] Address: [address] [place] [address] Performed By: #### 5 7021-8 ####KO LABORATORYCLIA [id number] [address] [place] Hematocrit (Bld) [Volume fraction] 38.9 % Normal 36.0-46.0 [facility] Comment on above: Order Comment: Speci men Type: BLOOD SPECIMENOrdering Facility: [facility] Address: [address] [place] [address] Performed By: #### 5 7021-8 ####KO LABORATORYCLIA [id number] [place] [address] [place] Hemoglobin (Bld) [Mass/Vol] 12.2 g/dL Normal 11.5-15.5 [facility] Comment on above: Order Comment: Speci men Type: BLOOD SPECIMENOrdering Facility: [facility] Address: [address] [place] [address] Performed By: #### 5 7021-8 ####KO LABORATORYCLIA [id number] [place] [address] [place] Immature granulocytes (Bld) [#/Vol] 0.03 10*3/uL Normal <0.10 [facility] Comment on above: Order Comment: Speci men Type: BLOOD SPECIMENOrdering Facility: [facility] Address: [address] [place] [address] Performed By: #### 5 7021-8 ####KO LABORATORYCLIA [id number] [place] [address] [place] Immature granulocytes/100 WBC (Bld) 0.4 % Normal [facility] Comment on above: Order Comment: Speci men Type: BLOOD SPECIMENOrdering Facility: [facility] Address: [address] [place] [address] Performed By: #### 5 7021-8 ####KO LABORATORYCLIA [id number] [place] [address] [place] Lymphocytes (Bld) [#/Vol] 2.73 10*3/uL Normal 1.00-4.00 [facility] Comment on above: Order Comment: Speci men Type: BLOOD SPECIMENOrdering Facility: [facility] Address: [address] [place] [address] Performed By: #### 5 7021-8 ####KO LABORATORYCLIA [id number] [address] [place] Lymphocytes/100 WBC (Bld) 35.5 % Normal [facility] Comment on above: Order Comment: Speci men Type: BLOOD SPECIMENOrdering Facility: [facility] Address: [address] [place] [address] Performed By: #### 5 7021-8 ####KO LABORATORYCLIA [id number] [place] [address] [place] MCH (RBC) [Entitic mass] 28.8 pg Normal 26.0-34.0 [facility] Comment on above: Order Comment: Speci men Type: BLOOD SPECIMENOrdering Facility: [facility] Address: [address] [place] [address] Performed By: #### 5 7021-8 ####KO LABORATORYCLIA [id number] [place] [address] [place] MCHC (RBC) [Mass/Vol] 31.4 g/dL Normal 30.5-36.0 [facility] Comment on above: Order Comment: Speci men Type: BLOOD SPECIMENOrdering Facility: [facility] Address: [address] [place] [address] Performed By: #### 5 7021-8 ####KO LABORATORYCLIA [id number] [address] [place] MCV (RBC) [Entitic vol] 92.0 fL Normal 80.0-100.0 [facility] Comment on above: Order Comment: Speci men Type: BLOOD SPECIMENOrdering Facility: [facility] Address: [address] [place] [address] Performed By: #### 5 7021-8 ####KO LABORATORYCLIA [id number] [place] [address] [place] Monocytes (Bld) [#/Vol] 0.76 10*3/uL Normal <0.87 [facility] Comment on above: Order Comment: Speci men Type: BLOOD SPECIMENOrdering Facility: [facility] Address: [address] [place] [address] Performed By: #### 5 7021-8 ####KO LABORATORYCLIA [id number] [address] [place] Monocytes/100 WBC (Bld) 9.9 % Normal [facility] Comment on above: Order Comment: Speci men Type: BLOOD SPECIMENOrdering Facility: [facility] Address: [address] [place] [address] Performed By: #### 5 7021-8 ####KO LABORATORYCLIA [id number] [place] [address] [place] Neutrophils (Bld) [#/Vol] 3.82 10*3/uL Normal 1.45-7.50 [facility] Comment on above: Order Comment: Speci men Type: BLOOD SPECIMENOrdering Facility: [facility] Address: [address] [place] [address] Performed By: #### 5 7021-8 ####KO LABORATORYCLIA [id number] [place] [address] [place] Neutrophils/100 WBC (Bld) 49.7 % Normal [facility] Comment on above: Order Comment: Speci men Type: BLOOD SPECIMENOrdering Facility: [facility] Address: [address] [place] [address] Performed By: #### 5 7021-8 ####KO LABORATORYCLIA [id number] [place] [address] [place] Nucleated RBC (Bld) [#/Vol] 10*3/uL Normal <0.01 [facility] Comment on above: Order Comment: Speci men Type: BLOOD SPECIMENOrdering Facility: [facility] Address: [address] [place] [address] Performed By: #### 5 7021-8 ####KO LABORATORYCLIA [id number] [place] [address] [place] Nucleated RBC/100 WBC (Bld) [Ratio] 0.0 /100 WBC Normal [facility] Comment on above: Order Comment: Speci men Type: BLOOD SPECIMENOrdering Facility: [facility] Address: [address] [place] [address] Performed By: #### 5 7021-8 ####KO LABORATORYCLIA [id number] [place] [address] [place] Platelet mean volume (Bld) [Entitic vol] 10.2 fL Normal 9.0-12.7 [facility] Comment on above: Order Comment: Speci men Type: BLOOD SPECIMENOrdering Facility: [facility] Address: [address] [place] [address] Performed By: #### 5 7021-8 ####KO LABORATORYCLIA [id number] [address] Platelets (Bld) [#/Vol] 273 10*3/uL Normal 150-400 [facility] Comment on above: Order Comment: Speci men Type: BLOOD SPECIMENOrdering Facility: [facility] Address: [address] [place] [address] Performed By: #### 5 7021-8 ####KO LABORATORYCLIA [id number] [address] [place] RBC (Bld) [#/Vol] 4.23 10*6/uL Normal 3.90-5.20 [facility] Comment on above: Order Comment: Speci men Type: BLOOD SPECIMENOrdering Facility: [facility] Address: [address] [place] [address] Performed By: #### 5 7021-8 ####KO LABORATORYCLIA [id number] [address] WBC (Bld) [#/Vol] 7.69 10*3/uL Normal 3.70-11.00 [facility] Comment on above: Order Comment: Speci men Type: BLOOD SPECIMENOrdering Facility: [facility] Address: [address] [place] [address] Performed By: #### 5 7021-8 ####KO LABORATORYCLIA [id number] [address] [place] CK SerPl-cCncon 07-12-2023 CK [Catalytic activity/Vol] 51 U/L Normal 42-196 [facility] Comment on above: Order Comment: Speci men Type: BLOOD SPECIMENOrdering Facility: [facility] Address: [address] [place] [address] Performed By: #### 2 157-6, 28430-3, 64762-6 ####KO LABORATORYCLIA [id number] [address] [place] ECHOon 07-12-2023 Echocardiography Echocardiography Rep ort: Transthoracic Echo [facility] Date of service: 07/12/2023 11:47:34 AM Ordering physician: ÁLVARO LOBO Indication: Chest Pain Symptom(s): Chest Pain and Shortness of breath Technologist: Jimena George [facility] Interpreting physician: Cony Almonte MD PATIENT: Name: MRS. SANDRA SCHMITZ : 1945 Age: 77 years Gender: F History of hypertension, heart failure with hospitalization and cardiomyopathy. Primary rhythm: sinus. Secondary rhythm: LBBB. Height: 160.00 cm BSA: 2.01 m Weight: 90.90 kg BMI: 35.5 kg/m Heart rate 59 bpm Blood pressure 121/63 mmHg Color Doppler was utilized to interrogate the cardiac valves assessed and spectral Doppler was utilized to determine the flow velocities and pressure gradients reported in this exam. Myocardial strain analysis was performed in this exam to aid in the assessment of cardiac function. MEASUREMENTS: Value Indexed Normal Max aortic dimension 3.4 cm Ao < 3.8 Left atrial volume 80 ml (biplane A-L) 40 ml/m Eugenio <= 34 LV ID (diastole) 5.8 cm (2D) 2.90 cm/m LV ID (systole) 5.3 cm (2D) 2.62 cm/m IVS, leaflet tips 1.1 cm (2D) Posterior wall thickness 0.6 cm (2D) Left ventricular mass 179 g (2D) 89 g/m Global peak long strain -8.2 % LV stroke volume 44 ml (2D biplane) LV end diastolic volume 166 ml (2D biplane) 82.6 ml/m 29<=EDVi<62 LV end systolic volume 122 ml (2D biplane) 60.7 ml/m Ejection Fraction 26 % (2D biplane) EF > 54 FINDINGS: LEFT VENTRICLE The left ventricle is severely dilated. Left ventricular systolic function is severely decreased regionally. Global LV myocardial strain is abnormal. Grade II left ventricular diastolic dysfunction. Mitral annular lateral E/e': 10.9. Mitral annular septal E/e': 10.6. Wall Motion: The entire inferior wall, mid inferoseptal segment, and basal inferoseptal segment are akinetic. The mid and distal anterior wall, entire anterior septum, apical lateral segment, and apex are severely hypokinetic. The anterolateral wall, posterior wall, and basal anterior segment are mildly hypokinetic. RIGHT VENTRICLE The right ventricle is normal in size. Right ventricular systolic function is normal. RV systolic tissue Doppler velocity is 10.1 cm/s. Tricuspid annular displacement is 1.2 cm. Estimated right ventricular systolic pressure is likely underestimated due to a weak or incomplete tricuspid regurgitation signal and is, at least, 19 mmHg consistent with normal pulmonary artery pressures. Estimated right atrial pressure is 3 mmHg based on IVC assessment. LEFT ATRIUM The left atrial cavity is mildly dilated. Pulmonary Veins: The pulmonary venous pattern showed normal systolic flow. RIGHT ATRIUM The right atrial cavity is normal in size. Inferior Vena Cava: The inferior vena cava appears normal measuring 1.9 cm. The vessel decreases greater than 50 percent with inspiration. MITRAL VALVE The mitral valve leaflets are structurally normal. There is no mitral stenosis. There is mild (1+ - 2+) mitral valve regurgitation. Regurgitant orifice area (PISA) is 0.16 cm . The pressure half time is 67 msec. The peak mitral E/A ratio is 0.46. The average mitral E/e' ratio is 10.8. The mitral flow deceleration time is 230 msec. TRICUSPID VALVE The tricuspid valve leaflets are structurally normal. There is mild (1+) tricuspid valve regurgitation. AORTIC VALVE The aortic valve cusps are structurally normal. There is no aortic valve stenosis. There is mild (1+) aortic valve regurgitation. Tricuspid aortic valve. There is mild thickening. There is mild calcification of the non coronary aortic cusp. The peak gradient is 4 mmHg (peak velocity = 106.0 cm/s). PULMONIC VALVE The pulmonic valve cusps are structurally normal. There is mild (1+ - 2+) pulmonic valve regurgitation. AORTA The visualized aorta is normal in size. Measurements - Mid ascending aorta 3.4 cm. PULMONARY ARTERIES The pulmonary arteries are unseen or not interrogated. INTERATRIAL SEPTUM The interatrial septum is normal. INTERVENTRICULAR SEPTUM The interventricular septum is normal. There is abnormal motion of the interventricular septum secondary to abnormal conduction. PERICARDIUM There is no pericardial effusion. There is an epicardial fat pad. CONCLUSIONS: - Exam indication: Chest Pain - The left ventricle is severely dilated. Left ventricular systolic function is severely decreased. EF = 26 5% (2D biplane). Grade II left ventricular diastolic dysfunction. - The right ventricle is normal in size. Right ventricular systolic function is normal. - There is mild to moderate (1+ - 2+) mitral valve regurgitation. - There is mild (1+) tricuspid valve regurgitation. - There is mild (1+) aortic valve regurgitation. - There is mild to moderate (1+ - 2+) pulmonic valve regurgitation. - Wall motion abnormaliti (more content not included)... Normal [facility] Magnesium SerPl-ncon Magnesium [Mass/Vol] 2.1 mg/dL Normal 1.7-2.3 [facility] Comment on above: Order Comment: Speci men Type: BLOOD SPECIMENOrdering Facility: [facility] Address: [address] [place], [place] [address] Performed By: #### 2 157-6, 79252-9, ####[facility] LABORATORYCLIA [id number] [place] [address] [place] Renal function [address] [place] [address] 07-12-2023 Albumin [Mass/Vol] 3.6 g/dL Low 3.9-4.9 [facility] Comment on above: Order Comment: Speci men Type: BLOOD SPECIMENOrdering Facility: [facility] Address: [address] [place], [place] [address] Performed By: #### 2 157-6, 19485-2, ####[facility] LABORATORYCLIA [id number] [place] [address] [place] Anion gap [Moles/Vol] 8 mmol/L Low 9-18 [facility] Comment on above: Order Comment: Speci men Type: BLOOD SPECIMENOrdering Facility: [facility] Address: [address] [place] [id number] Performed By: #### 2 157-6, 46318-4, ####[facility] LABORATORYCLIA [id number] [place] [id number] [place] Calcium [Mass/Vol] 8.8 mg/dL Normal 8.5-10.2 [facility] Comment on above: Order Comment: Speci men Type: BLOOD SPECIMENOrdering Facility: [facility] Address: [address] [place] [address] Performed By: #### 2 157-6, 79441-8, 94809-4 ####KO LABORATORYCLIA [id number] [place] [address] [place] Chloride [Moles/Vol] 103 mmol/L Normal 97-105 [facility] Comment on above: Order Comment: Speci men Type: BLOOD SPECIMENOrdering Facility: [facility] Address: [address] [place] [address] Performed By: #### 2 157-6, 36154-2, 03532-7 ####KO LABORATORYCLIA [id number] [place] [id number] [place] CO2 [Moles/Vol] 28 mmol/L Normal 22-30 [facility] Comment on above: Order Comment: Speci men Type: BLOOD SPECIMENOrdering Facility: [facility] Address: [address] [place] [address] Performed By: #### 2 157-6, 51331-3, ####KO LABORATORYCLIA [id number] [place] [address] [place] Creatinine [Mass/Vol] 0.95 mg/dL Normal 0.58-0.96 [facility] Comment on above: Order Comment: Speci men Type: BLOOD SPECIMENOrdering Facility: [facility] Address: [address] [place] [address] Performed By: #### 2 157-6, 76373-6, 96231-3 ####KO LABORATORYCLIA [id number] [address] [place] Creatinine and Glomerular filtration rate.predicted panel (S/P/Bld) 62 mL/min/1.73m??? Normal >=60 [facility] Comment on above: Order Comment: Speci men Type: BLOOD SPECIMENOrdering Facility: [facility] Address: [address] [place] [address] Result Comment: Aaron mated Glomerular Filtration Rate (eGFR) is calculated using the 2020 CKD-EPI creatinine equation. This equation utilizes serum creatinine, sex, and age as parameters. The creatinine assay has traceable calibration to isotope dilution-mass spectrometry. Refer to KDIGO guidelines for clinical interpretation. In patients with unstable renal function, e.g. those with acute kidney injury, the eGFR may not accurately reflect actual GFR. Performed By: #### 2 157-6, 10182-2, ####[facility] LABORATORYCLIA [id number] [place] [address] [place] Glucose [Mass/Vol] 89 mg/dL Normal 74-99 [facility] Comment on above: Order Comment: Lenard jesus Type: BLOOD SPECIMENOrdering Facility: [facility] Address: [address] [place], [place] [address] Result Comment: The [place] [employer] (ADA) provides guidance for cutoff values for fasting glucose and random glucose. The ADA defines fasting as no caloric intake for at least 8 hours. Fasting plasma glucose results between 100 to 125 mg/dL indicate increased risk for diabetes (prediabetes). Fasting plasma glucose results greater than or equal to 126 mg/dL meet the criteria for diagnosis of diabetes. In the absence of unequivocal hyperglycemia, results should be confirmed by repeat testing. In a patient with classic symptoms of hyperglycemia or hyperglycemic crisis, random plasma glucose results greater than or equal to 200 mg/dL meet the criteria for diagnosis of diabetes. Reference: Standards of Medical Care in Diabetes 2016, [place] [employer]. Diabetes Care. 2016.39(Suppl 1). Performed By: #### 2 157-6, 09771-3, ####[facility] LABORATORYCLIA [id number] [place] [address] [place] Phosphate [Mass/Vol] 3.7 mg/dL Normal 2.7-4.8 [facility] Comment on above: Order Comment: Lenard jesus Type: BLOOD SPECIMENOrdering Facility: [facility] Address: [address] [place] [address] Performed By: #### 2 157-6, 37089-4, ####[facility] LABORATORYCLIA [id number] [place] [address] [place] Potassium [Moles/Vol] 3.8 mmol/L Normal 3.7-5.1 [facility] Comment on above: Order Comment: Speci men Type: BLOOD SPECIMENOrdering Facility: [facility] Address: [address] [place], [place] [address] Performed By: #### 2 157-6, 37499-2, 32548-5 ####KO LABORATORYCLIA [id number] [place] [address] [facility] Sodium [Moles/Vol] 139 mmol/L Normal 136-144 [facility] Comment on above: Order Comment: Speci men Type: BLOOD SPECIMENOrdering Facility: [facility] Address: [address] [place] [address] Performed By: #### 2 157-6, 10233-7, 28974-0 ####KO LABORATORYCLIA [id number] [place] [id number] [place] Urea nitrogen [Mass/Vol] 34 mg/dL High 7-21 [facility] Comment on above: Order Comment: Speci men Type: BLOOD SPECIMENOrdering Facility: [facility] Address: [address] [place] [address] Performed By: #### 2 157-6, 42583-6, 05720-1 ####KO LABORATORYCLIA [id number] [place] [id number] [facility] ALLIED HEALTHon 07-11-2023 ALLIED HEALTH HNO ID: [id number] Author: DEJAN HERNANDEZ RT(R) Service: Nuclear Medicine Author Type: Technologist Type: Allied Health Filed: 07/11/2023 10:09 Note Text: RADIOLOGY SERVICE PROGRESS NOTE SERVICE DATE: 07/11/2023 SERVICE TIME: 10:09 AM PATIENT IDENTITY VERIFICATION COMPLETED USING TWO (2) STANDARD IDENTIFIERS: Name and Date of confirmed by patient verbally FALL SCREENING: Has the patient had 2 falls in the last year or 1 fall with injury or currently using an Ambulatory Assistive Device (Walker, Cane, Wheelchair, Crutches, etc.)? Inpatient: Screened on floor PATIENT GENDER DATA: .female : No ALLERGIES: Reviewed and unchanged MEDICATIONS REVIEWED: Not applicable PATIENT RELEVANT IMPLANT DATA REVIEWED: Not Applicable PATIENT PRESENTS WITH AN IMPLANTABLE OR ATTACHED MEDICAL SALES: No CREATININE: Creatinine Date Value Ref Range Status 07/11/2023 0.90 0.58 - 0.96 mg/dL Final 07/10/2023 0.89 0.58 - 0.96 mg/dL Final 05/21/2023 0.90 0.58 - 0.96 mg/dL Final Estimated Glomerular Filtration Rate Date Value Ref Range Status 07/11/2023 66 >=60 mL/min/1.73m? Final Comment: Estimated Glomerular Filtration Rate (eGFR) is calculated using the 2020 CKD-EPI creatinine equation. This equation utilizes serum creatinine, sex, and age as parameters. The creatinine assay has traceable calibration to isotope dilution-mass spectrometry. Refer to KDIGO guidelines for clinical interpretation. In patients with unstable renal function, e.g. those with acute kidney injury, the eGFR may not accurately reflect actual GFR. eGFR- Date Value Ref Range Status 01/31/2021 >60 Final P.O.C.T. RESULTS: N/A July 11, [address] PERFORMED: No IV SITE: Inpatient - refer to LDA documentation POST EXAM PIV STATUS: Inpatient see LDA documentation PROCEDURE TYPE: NM Stress: 13.89 mCi [id number] was administered IV for Rest Imaging at 09:05 by [facility]. 35.4 mCi [id number] was administered IV for Stress Imaging at 09:50 by [facility]. PATIENT DISCHARGED TO: Floor A Diagnostic radioactive procedure has taken place, with no further precautions necessary other than routine body substance precautions. More information regarding radiation safety can be found using this link: [email or web address]%20Nuclear%20 [email or web address] SIGNATURE: RT Kevin(R) PATIENT NAME: Sandra Schmitz DATE: July 11, 2023 TIME: 10:09 AM PAGER/CONTACT #: [facility] CASE MGT INIT Alicia 2023 CASE MGT INIT TOMASA HNO ID: [id number] Author: LUX AREVALO LISW Service: ? Author Type: Collar Folder Operator Type: Care Mgt Initial Assessment Filed: 07/11/2023 11:28 Note Text: CARE MANAGEMENT: ASSESSMENT AND DISCHARGE PLAN SERVICE DATE: July 11, 2023 SERVICE TIME: 11:24 AM PCP: Mandeep Houser, DO -verified- Primary Contact: Extended Emergency Contact Information Primary Emergency Contact: Louisa Crouch Mobile Relation: Sister Secondary Emergency Contact: Julia Schmitz Mobile Relation: Daughter Admission Status: Inpatient Insurance Provider: MEDICARE A AND B Discharge Planning requested by: Per Department Practice Potential Transition Plans Home;To Be Determined Advance Directives Current Advance Directive: Health Care Power of Cut Tobacco Bulker Current Living Arrangements and Support Lives with: Children Type of Residence: Private Residence (House) Does the patient have to climb stairs at home?: Yes Support: Family members, Friends/neighbors, Children How do you manage to accomplish the following: Independent: Bathe/Shower;Meals/Meal Prep;Ambulation;Going to the bathroom;Dress;Medication Management;Transportation to appointments/community Current Services/Equipment Current Post-Acute Service(s): None Discharge Planning Patient Goal(s): Be able to go home, General wellness, Ambulate a little better [place] of Choice Explained: Are you interested in bedside delivery of your medications? No Discharge Planning Participant(s): Patient Patient/Family Comments: Pt from home with daughter, independent with all ADLs, no DME used. Caregiver Assessment: Caregiver is ready, willing and able to meet the patient's needs as recommended by the inter-professional team: No Caregiver needed Transport at Discharge: Transportation Arrangements: Car Destination: home Needs Prior to Discharge: Needs Prior to Discharge: To Be Determined Post-Acute Discharge Plan: EMR reviewed. SW met with pt at bedside to complete Initial Assessment. Pt presents with chest pain/pressure, shortness of breath. On 2L O2 NC, none used prior to admission. Pt from home with daughter, is independent with all ADLs, no DME used. Pt reports, prior to admission, inability to ambulate due to chest/back pain/pressure. Anticipate pt will return home with self care at discharge, dtr or sister will transport. SW/CM will continue to follow for potential case mgmt needs, ability to wean O2. SIGNATURE: CLARA Hancock PATIENT NAME: Sandra Schmitz DATE: July 11, 2023 TIME: 11:24 AM CONTACT #: [phone] [facility] CBC W Auto Differential pane l (Bld)on 07-11-2023 Basophils (Bld) [#/Vol] 0.07 10*3/uL Normal <0.11 [facility] Comment on above: Order Comment: Speci men Type: BLOOD SPECIMENOrdering Facility: [facility] Address: [address] [place] [address] Performed By: #### 5 7021-8 ####KO LABORATORYCLIA [id number] [place] [address] [place] Basophils/100 WBC (Bld) 1.0 % Normal [facility] Comment on above: Order Comment: Speci men Type: BLOOD SPECIMENOrdering Facility: [facility] Address: [address] [place] [address] Performed By: #### 5 7021-8 ####KO LABORATORYCLIA [id number] [address] Differential cell count method Nom (Bld) Auto Normal [facility] Comment on above: Order Comment: Speci men Type: BLOOD SPECIMENOrdering Facility: [facility] Address: [address] [place] [address] Performed By: #### 5 7021-8 ####KO LABORATORYCLIA [id number] [place] [address] [place] Eosinophils (Bld) [#/Vol] 0.21 10*3/uL Normal <0.46 [facility] Comment on above: Order Comment: Speci men Type: BLOOD SPECIMENOrdering Facility: [facility] Address: [address] [place] [address] Performed By: #### 5 7021-8 ####KO LABORATORYCLIA [id number] [address] Eosinophils/100 WBC (Bld) 3.0 % Normal [facility] Comment on above: Order Comment: Speci men Type: BLOOD SPECIMENOrdering Facility: [facility] Address: [address] [place] [address] Performed By: #### 5 7021-8 ####KO LABORATORYCLIA [id number] [address] [place] Erythrocyte distribution width (RBC) [Ratio] 14.9 % Normal 11.5-15.0 [facility] Comment on above: Order Comment: Speci men Type: BLOOD SPECIMENOrdering Facility: [facility] Address: [address] [place] [address] Performed By: #### 5 7021-8 ####KO LABORATORYCLIA [id number] [address] OF [place] Hematocrit (Bld) [Volume fraction] 39.7 % Normal 36.0-46.0 [facility] Comment on above: Order Comment: Speci men Type: BLOOD SPECIMENOrdering Facility: [facility] Address: [address] [place] [address] Performed By: #### 5 7021-8 ####KO LABORATORYCLIA [id number] [address] [place] Hemoglobin (Bld) [Mass/Vol] 12.3 g/dL Normal 11.5-15.5 [facility] Comment on above: Order Comment: Speci men Type: BLOOD SPECIMENOrdering Facility: [facility] Address: [address] [place] [address] Performed By: #### 5 7021-8 ####KO LABORATORYCLIA [id number] [place] [address] [place] Immature granulocytes (Bld) [#/Vol] 0.03 10*3/uL Normal <0.10 [facility] Comment on above: Order Comment: Speci men Type: BLOOD SPECIMENOrdering Facility: [facility] Address: [address] [place] [address] Performed By: #### 5 7021-8 ####KO LABORATORYCLIA [id number] [address] [place] Immature granulocytes/100 WBC (Bld) 0.4 % Normal [facility] Comment on above: Order Comment: Speci men Type: BLOOD SPECIMENOrdering Facility: [facility] Address: [address] [place] [address] Performed By: #### 5 7021-8 ####KO LABORATORYCLIA [id number] [place] [address] Lymphocytes (Bld) [#/Vol] 2.77 10*3/uL Normal 1.00-4.00 [facility] Comment on above: Order Comment: Speci men Type: BLOOD SPECIMENOrdering Facility: [facility] Address: [address] [place] [address] Performed By: #### 5 7021-8 ####KO LABORATORYCLIA [id number] [address] Lymphocytes/100 WBC (Bld) 39.9 % Normal [facility] Comment on above: Order Comment: Speci men Type: BLOOD SPECIMENOrdering Facility: [facility] Address: [address] [place] [address] Performed By: #### 5 7021-8 ####KO LABORATORYCLIA [id number] [address] MCH (RBC) [Entitic mass] 28.2 pg Normal 26.0-34.0 [facility] Comment on above: Order Comment: Speci men Type: BLOOD SPECIMENOrdering Facility: [facility] Address: [address] [place] [address] Performed By: #### 5 7021-8 ####KO LABORATORYCLIA [id number] [address] [place] [facility] MCHC (RBC) [Mass/Vol] 31.0 g/dL Normal 30.5-36.0 [facility] Comment on above: Order Comment: Speci men Type: BLOOD SPECIMENOrdering Facility: [facility] Address: [address] [place] [address] Performed By: #### 5 7021-8 ####KO LABORATORYCLIA [id number] [address] MCV (RBC) [Entitic vol] 91.1 fL Normal 80.0-100.0 [facility] Comment on above: Order Comment: Speci men Type: BLOOD SPECIMENOrdering Facility: [facility] Address: [address] [place] [address] Performed By: #### 5 7021-8 ####KO LABORATORYCLIA [id number] [place] [address] [place] Monocytes (Bld) [#/Vol] 0.60 10*3/uL Normal <0.87 [facility] Comment on above: Order Comment: Speci men Type: BLOOD SPECIMENOrdering Facility: [facility] Address: [address] [place] [address] Performed By: #### 5 7021-8 ####KO LABORATORYCLIA [id number] [place] [address] [place] Monocytes/100 WBC (Bld) 8.6 % Normal [facility] Comment on above: Order Comment: Speci men Type: BLOOD SPECIMENOrdering Facility: [facility] Address: [address] [place] [address] Performed By: #### 5 7021-8 ####KO LABORATORYCLIA [id number] [place] [address] [place] Neutrophils (Bld) [#/Vol] 3.26 10*3/uL Normal 1.45-7.50 [facility] Comment on above: Order Comment: Speci men Type: BLOOD SPECIMENOrdering Facility: [facility] Address: [address] [place] [address] Performed By: #### 5 7021-8 ####KO LABORATORYCLIA [id number] [place] [address] [place] Neutrophils/100 WBC (Bld) 47.1 % Normal [facility] Comment on above: Order Comment: Speci men Type: BLOOD SPECIMENOrdering Facility: [facility] Address: [address] [place] [address] Performed By: #### 5 7021-8 ####KO LABORATORYCLIA [id number] [place] [address] [place] Nucleated RBC (Bld) [#/Vol] 10*3/uL Normal <0.01 [facility] Comment on above: Order Comment: Speci men Type: BLOOD SPECIMENOrdering Facility: [facility] Address: [address] [place] [address] Performed By: #### 5 7021-8 ####KO LABORATORYCLIA [id number] [place] [address] [place] Nucleated RBC/100 WBC (Bld) [Ratio] 0.0 /100 WBC Normal [facility] Comment on above: Order Comment: Speci men Type: BLOOD SPECIMENOrdering Facility: [facility] Address: [address] [place] [address] Performed By: #### 5 7021-8 ####KO LABORATORYCLIA [id number] [place] [address] [place] Platelet mean volume (Bld) [Entitic vol] 10.2 fL Normal 9.0-12.7 [facility] Comment on above: Order Comment: Speci men Type: BLOOD SPECIMENOrdering Facility: [facility] Address: [address] [place] [address] Performed By: #### 5 7021-8 ####KO LABORATORYCLIA [id number] [place] [address] [place] Platelets (Bld) [#/Vol] 290 10*3/uL Normal 150-400 [facility] Comment on above: Order Comment: Speci men Type: BLOOD SPECIMENOrdering Facility: [facility] Address: [address] [place] [address] Performed By: #### 5 7021-8 ####KO LABORATORYCLIA [id number] [place] [address] [place] RBC (Bld) [#/Vol] 4.36 10*6/uL Normal 3.90-5.20 [facility] Comment on above: Order Comment: Speci men Type: BLOOD SPECIMENOrdering Facility: [facility] Address: [address] [place] [address] Performed By: #### 5 7021-8 ####KO LABORATORYCLIA [id number] [place] [address] [place] WBC (Bld) [#/Vol] 6.94 10*3/uL Normal 3.70-11.00 [facility] Comment on above: Order Comment: Speci men Type: BLOOD SPECIMENOrdering Facility: [facility] Address: [address] [place] [address] Performed By: #### 5 7021-8 ####NEWARK LABORATORYCLIA [id number] [place] [address] [place] CK SerPl-cCncon 07-11-2023 CK [Catalytic activity/Vol] 49 U/L Normal 42-196 [facility] Comment on above: Order Comment: Speci men Type: BLOOD SPECIMENOrdering Facility: [facility] Address: [address] [place] [address] Performed By: #### 2 4362-6, 6, ####NEWARK LABORATORYCLIA [id number] [place] [address] [place] Magnesium SerPl-mCncon 07-11 Magnesium [Mass/Vol] 2.0 mg/dL Normal 1.7-2.3 [facility] Comment on above: Order Comment: Speci men Type: BLOOD SPECIMENOrdering Facility: [facility] Address: [address] [place] [address] Performed By: #### 2 4362-6, 2156-10, ####NEWARK LABORATORYCLIA [id number] [place] [address] [place] NM CARDIAC PERF STRESS/PHARM on 07-11-2023 NM CARDIAC PERF STRESS/PHARM * * *Final Report* * * DATE OF EXAM: Jul 11 2023 10:57AM SKIP 0006 - NM CARDIAC PERF STRESS/PHARM / PROCEDURE REASON: Chest pain/anginal equiv, intermediate CAD risk, not treadmill candidate * * * * Physician Interpretation * * * * Stress Stage Hand Report: [facility] Date of service: 07/11/2023 9:15:02 AM Supervising physician: Álvaro Lobo MD PATIENT: Name: MRS. SANDRA SCHMITZ Age: 77 years Gender: F The supervising physician was in the department and immediately available. * * * Final * * * PATIENT: Name: MRS. SANDRA SCHMITZ Age: 77 years Gender: F CONCLUSIONS: 1. SPECT Perfusion Study: Normal Perfusion but abnormal EF. 2. There is no scintigraphic evidence for inducible ischemia. 3. No evidence of scarred myocardium. 4. Left ventricle is severely dilated. The left ventricle systolic function is severely decreased. 5. This is a high risk scan. Gated Stress IR:3D LVEF % 24 Prior Study Comparison Prior nuclear cardiology exam was performed on 04/27/2020 which reported LVEF of 40%. Nuclear Med Report:1-Day Gated SPECT Myocardial Perfusion with Regadenoson Stress: Myocardial perfusion imaging was performed at rest 30 minutes following the IV injection of the radiotracer. The patient received 0.4 mg of regadenoson, via rapid IV push, immediately followed by radiotracer IV. Gated post stress tomographic imaging was performed 30 to 60 minutes later. See administered radiotracer and doses below. [facility] Date of service: 07/11/2023 9:15:02 AM Ordering Physician: ÁLVARO LOBO. Requesting Physician: Indication: CP - ECG uniterpretable OR unable to exercise Interpreting physician: Deonte Penaloza MD Height: 161.29 cm BSA: 1.98 m? Weight: 87.54 kg BMI: 33.7 kg/m? Imaging Protocol Limitation Reason Patient motion, Breast attenuation and G.I. uptake. CT Dose Reduction Employed: No. Exam Type: Rest Stress Radiopharm: Tc-99m Tetrofosmin Tc-99m Tetrofosmin Dosage(mCi): 13.89 35.4 Atten Correction: not performed not performed Stress Agent: Regadenoson 0.4mg Supply provided from [facility] Resting Blood Press: 110/59 mmHg Image Quality The overall study imaging quality was deemed to be poor. The following technical issues were noted: Patient motion, Breast attenuation and G.I. uptake. FINDINGS: Left Ventricle Wall Motion: 1 - The apical lateral segment and apex are akinetic. The entire anterior wall, sara-lateral wall, entire septum, entire inferior wall, and posterior wall are hypokinetic. Stress IR:3D - Rest IR:3D - Gated Stress IR:3D - Reversibility - 1 Stress IR:3D Gated Stress IR:3D LVEF: 24 % ED Volume: 247 ml ES Volume: 187 ml TID: 1.14 Perfusion Findings Stress IR:3D - Summed Score=0 All segments demonstrate normal perfusion. Rest IR:3D - Summed Score=0 All segments demonstrate normal perfusion. Stress IR:3D Rest IR:3D Summed Score=0 Summed Score=0 LEFT VENTRICLE The left ventricle is severely dilated. Left ventricular systolic function is severely decreased. Abnormal septal motion due to Left Bundle Branch Block. Stress Test Findings: There is no scintigraphic evidence for inducible ischemia. There is no evidence of scarring. * * * Final * * * Stress ECG Report: [facility] Date of service: 07/11/2023 9:15:02 AM Ordering physician: ÁLVARO LOBO systems specialist: Oumou Piña Audio Video Mechanic: Valery Sung Interpreting physician: Álvaro Lobo MD Patient name: MRS. SANDRA SCHMITZ Age: 77 years Gender: F Height: 161.29 cm BSA: 1.98 m? Weight: 87.54 kg BMI: 33.7 kg/m? Indication: Chest pressure / Chest tightness Stress ECG Conclusion: Conclusion: Non-diagnostic due to LBBB Stress ECG Summary: The patient's resting heart rate was 61 bpm and blood pressure was 110/59 mmHg. The test was terminated due to end of protocol. Other symptoms during the test included SOB. The maximum heart rate was 74 bpm, which is 52% of the predicted heart rate for age. Peak blood pressure was 114/50 mmHg. The double product achieved was 8436. Medications: Last Used METOPROLOL SYNTHROID DESYREL LASIX ZETIA ASPIRIN Resting ECG: Normal Sinus Rhythm and LBBB Symptoms at rest: No symptoms Pharamcologic Protocol: Regadenoson Stress Exercise Table: +-----+--+---+---+ Stage HR SYS SANTOS +-----+--+---+---+ 1 66 114 50 +-----+--+---+---+ 2 74 109 51 +-----+--+---+---+ 3 67 +-----+--+---+---+ 4 64 106 43 +-----+--+---+---+ 5 62 101 42 (more content not included)... Normal [facility] NURSING PROGon 07-11-2023 NURSING PROG HNO ID: [id number] Author: MISTY ASCENCIO, RN Service: Nursing Author Type: Registered Nurse Type: Nursing Progress Note Filed: 07/11/2023 14:37 Note Text: PATIENT EDUCATION HEART FAILURE PATIENT NAME: Sandra Schmitz PATIENT LOCATION: [place] [id number] SURVIVAL SKILLS: Low Sodium Diet Weight Monitoring and Dry Weight Importance of Follow Up after Discharge Fluid Restriction, if applicable Heart Failure Medications Symptom Management related to heart failure Activity / Physical Exercise Recommendations Smoking cessation counseling if applicable When Patient Should Call Provider READINESS TO LEARN COGNITIVE ABILITY: Alert and oriented MOTIVATION TO LEARN: Interested FAMILY SUPPORT: High - Very involved in pt care INSTRUCTION PROVIDED TO: Patient and Daughter PATIENT LEARNS BEST BY: Individual Instruction Written Instruction - Hand-outs Verbal Instruction FACTORS AFFECTING LEARNING: None PHYSICAL LIMITATIONS AFFECTING LEARNING: None LEARNING RESPONSE DIAGNOSIS: Heart Failure PATIENT/FAMILY RESPONSE: Initial visit for CHF education. Seen for h/o CHF w/ EF @ 29%. Follow Dr Oneill from [place]. Brief overview of CHF, s/s and management of. Survival Skills discussed. Pt currently not on low sodium diet. Discussed rationale for 2GM sodium diet. Discussed foods and be avoid as well low/no sodium foods. Pt enjoys cooking and frequently eats @ home. Discussed reading labels to familiarize herself w/ foods she often eats.Discussed fluid allowance. Pt doesn't know how much she drinks per day but feels it to be well over 64 ounces. Drinks ice water d/t dry mouth. Pt is compliant w/ her medication. She has experience tingling around the mouth w/ several cardiac meds. Currently tolerating Entresto. No issues w/ daily Lasix dose. Pt doesn't weigh daily. Discussed rationale for daily weights and notifying medical team for 4 lb weigh changes. Pt's expected or DRY weight is 190lb. Today's weight is 192lb. Discussed benefits of CHF Clinic. Pt will consider. Discussed benefits of physical exercise. Pt has brace to lower leg. Discussed possibility of chair exercises. Pt states no lower leg edema w/ fluid overload but experiences abdominal bloating. METHOD OF INSTRUCTION: Individual instruction Written instruction - handouts Verbal instruction FOLLOW-UP PLAN: Patient instructed to call with any further issues Reinforce - Repeat previous content Follow up with cardiology Follow up phone call. Contact information given. INSTRUCTIONAL AIDS USED: Heart Failure Zones Handout, supplemental handouts from CHF Binder, low sodium diet tips and [employer]. SUPPLEMENTAL MATERIAL PROVIDED TO PATIENT: Heart Failure Zones handout addressing low sodium diet, activity, medications, symptoms related to heart failure (call the physician's office if you gain greater than 4 pounds), weight monitoring and smoking cessation counseling if applicable. REFERRAL (RECOMMENDATION): Cardiology Electronically Signed By: Misty Ascencio Normal [facility] Renal function 2000 panelon 07-11-2023 Albumin [Mass/Vol] 3.6 g/dL Low 3.9-4.9 [facility] Comment on above: Order Comment: Ernestinei men Type: BLOOD SPECIMENOrdering Facility: [facility] Address: [address] [place] [address] Performed By: #### 2 4362-6, 2156-10, ####[facility] LABORATORYCLIA [id number] [place] [id number] [place] Anion gap [Moles/Vol] 9 mmol/L Normal 9-18 [facility] Comment on above: Order Comment: Speci men Type: BLOOD SPECIMENOrdering Facility: [facility] Address: [address] [place] [address] Performed By: #### 2 4362-6, 2156-10, ####[facility] LABORATORYCLIA [id number] [place] [id number] [place] Calcium [Mass/Vol] 9.2 mg/dL Normal 8.5-10.2 [facility] Comment on above: Order Comment: Speci men Type: BLOOD SPECIMENOrdering Facility: [facility] Address: [address] [place] [id number] Performed By: #### 2 4362-6, 2156-10, ####KO LABORATORYCLIA [id number] [place] [address] [place] Chloride [Moles/Vol] 103 mmol/L Normal 97-105 [facility] Comment on above: Order Comment: Speci men Type: BLOOD SPECIMENOrdering Facility: [facility] Address: [address] [place] [address] Performed By: #### 2 4362-6, 2156-10, ####KO LABORATORYCLIA [id number] [place] [id number] [place] CO2 [Moles/Vol] 29 mmol/L Normal 22-30 [facility] Comment on above: Order Comment: Speci men Type: BLOOD SPECIMENOrdering Facility: [facility] Address: [address] [place] [address] Performed By: #### 2 4362-6, 2156-10, ####[facility] LABORATORYCLIA [id number] [place] [address] [place] Creatinine [Mass/Vol] 0.90 mg/dL Normal 0.58-0.96 [facility] Comment on above: Order Comment: Speci men Type: BLOOD SPECIMENOrdering Facility: [facility] Address: [address] [place] [address] Performed By: #### 2 4362-6, 2156-10, ####[facility] LABORATORYCLIA [id number] [address] [place] Creatinine and Glomerular filtration rate.predicted panel (S/P/Bld) 66 mL/min/1.73m??? Normal >=60 [facility] Comment on above: Order Comment: Speci men Type: BLOOD SPECIMENOrdering Facility: [facility] Address: [address] [place] [address] Result Comment: Aaron mated Glomerular Filtration Rate (eGFR) is calculated using the 2020 CKD-EPI creatinine equation. This equation utilizes serum creatinine, sex, and age as parameters. The creatinine assay has traceable calibration to isotope dilution-mass spectrometry. Refer to KDIGO guidelines for clinical interpretation. In patients with unstable renal function, e.g. those with acute kidney injury, the eGFR may not accurately reflect actual GFR. Performed By: #### 2 4362-6, 2156-10, ####KO LABORATORYCLIA [id number] [place] [address] [place] Glucose [Mass/Vol] 91 mg/dL Normal 74-99 [facility] Comment on above: Order Comment: [facility] Type: BLOOD SPECIMENOrdering Facility: [facility] Address: [address] [place] [address] Result Comment: The [place] Diabetes [employer] (ADA) provides guidance for cutoff values for fasting glucose and random glucose. The ADA defines fasting as no caloric intake for at least 8 hours. Fasting plasma glucose results between 100 to 125 mg/dL indicate increased risk for diabetes (prediabetes). Fasting plasma glucose results greater than or equal to 126 mg/dL meet the criteria for diagnosis of diabetes. In the absence of unequivocal hyperglycemia, results should be confirmed by repeat testing. In a patient with classic symptoms of hyperglycemia or hyperglycemic crisis, random plasma glucose results greater than or equal to 200 mg/dL meet the criteria for diagnosis of diabetes. Reference: Standards of Medical Care in Diabetes 2016, [place] [employer]. Diabetes Care. 2016.39(Suppl 1). Performed By: #### 2 4362-6, 2156-10, ####[facility] LABORATORYCLIA [id number] [place] [address] [place] Phosphate [Mass/Vol] 3.9 mg/dL Normal 2.7-4.8 [facility] Comment on above: Order Comment: Lenard jesus Type: BLOOD SPECIMENOrdering Facility: [facility] Address: [address] [place] [address] Performed By: #### 2 4362-6, 2156-10, ####[facility] LABORATORYCLIA [id number] [place] [address] [place] Potassium [Moles/Vol] 4.2 mmol/L Normal 3.7-5.1 [facility] Comment on above: Order Comment: Speci men Type: BLOOD SPECIMENOrdering Facility: [facility] Address: [address] [place], [place] [address] Performed By: #### 2 4362-6, 2156-10, ####KO LABORATORYCLIA [id number] [place] [id number] [facility] Sodium [Moles/Vol] 141 mmol/L Normal 136-144 [facility] Comment on above: Order Comment: Speci men Type: BLOOD SPECIMENOrdering Facility: [facility] Address: [address] [place] [address] Performed By: #### 2 4362-6, 2156-10, ####KO LABORATORYCLIA [id number] [place] [id number] [place] Urea nitrogen [Mass/Vol] 29 mg/dL High 7-21 [facility] Comment on above: Order Comment: Speci men Type: BLOOD SPECIMENOrdering Facility: [facility] Address: [address] [place] [address] Performed By: #### 2 4362-6, 2156-10, ####KO LABORATORYCLIA [id number] [place] [id number] [facility] ALLIED HEALTHon 07-10-2023 ALLIED HEALTH HNO ID: [id number] Author: DANIELLE ESTRELLA RT(Marlee) Service: ? Author Type: Technologist Type: Allied Health Filed: 07/10/2023 08:12 Note Text: Radiology Service Progress Note PATIENT NAME: Sandra Schmitz DATE OF SERVICE: July 10, 2023 TIME: 8:12 AM PATIENT IDENTITY VERIFICATION COMPLETED USING TWO (2) IDENTIFIERS: Name and Date of confirmed by patient verbally and Name and Date of confirmed by identification band. FALL SCREENING: Has the patient had 2 falls in the last year or 1 fall with injury or currently using an Ambulatory Assistive Device (Walker, Cane, Wheelchair, Crutches, etc.)? Emergency Room Patient: Screened in ED PATIENT GENDER DATA: Female. status: : No status: NO. PATIENT RELEVANT IMPLANT DATA REVIEWED: Not Applicable PATIENT PRESENTS WITH AN IMPLANTABLE OR ATTACHED MEDICAL SALES: No RADIOLOGY DEPARTMENT: General X-ray: Exam(s) Completed: Chest X-Ray PERIPHERAL IV DATA: Not applicable SIGNED BY: RT Maciel(R) July 10, 2023 8:12 AM Normal [facility] CBC W Auto Differential pane l (Bld)on 07-10-2023 Basophils (Bld) [#/Vol] 0.11 10*3/uL High <0.11 [facility] Comment on above: Order Comment: Speci men Type: BLOOD SPECIMENOrdering Facility: [facility] Address: [address] [place] [address] Performed By: #### 5 7021-8 ####KO LABORATORYCLIA [id number] [place] [address] [place] Basophils/100 WBC (Bld) 1.3 % Normal [facility] Comment on above: Order Comment: Speci men Type: BLOOD SPECIMENOrdering Facility: [facility] Address: [address] [place] [address] Performed By: #### 5 7021-8 ####KO LABORATORYCLIA [id number] [place] [address] [place] Differential cell count method Nom (Bld) Auto Normal [facility] Comment on above: Order Comment: Speci men Type: BLOOD SPECIMENOrdering Facility: [facility] Address: [address] [place] [address] Performed By: #### 5 7021-8 ####KO LABORATORYCLIA [id number] [place] [address] [place] Eosinophils (Bld) [#/Vol] 0.26 10*3/uL Normal <0.46 [facility] Comment on above: Order Comment: Speci men Type: BLOOD SPECIMENOrdering Facility: [facility] Address: [address] [place] [address] Performed By: #### 5 7021-8 ####KO LABORATORYCLIA [id number] [place] [address] [place] Eosinophils/100 WBC (Bld) 3.0 % Normal [facility] Comment on above: Order Comment: Speci men Type: BLOOD SPECIMENOrdering Facility: [facility] Address: [address] [place] [address] Performed By: #### 5 7021-8 ####KO LABORATORYCLIA [id number] [place] [address] [place] Erythrocyte distribution width (RBC) [Ratio] 14.8 % Normal 11.5-15.0 [facility] Comment on above: Order Comment: Speci men Type: BLOOD SPECIMENOrdering Facility: [facility] Address: [address] [place] [address] Performed By: #### 5 7021-8 ####KO LABORATORYCLIA [id number] [place] [address] [place] Hematocrit (Bld) [Volume fraction] 42.8 % Normal 36.0-46.0 [facility] Comment on above: Order Comment: Speci men Type: BLOOD SPECIMENOrdering Facility: [facility] Address: [address] [place] [address] Performed By: #### 5 7021-8 ####KO LABORATORYCLIA [id number] [place] [address] [place] Hemoglobin (Bld) [Mass/Vol] 14.0 g/dL Normal 11.5-15.5 [facility] Comment on above: Order Comment: Speci men Type: BLOOD SPECIMENOrdering Facility: [facility] Address: [address] [place] [address] Performed By: #### 5 7021-8 ####KO LABORATORYCLIA [id number] [place] [address] [place] Immature granulocytes (Bld) [#/Vol] 0.05 10*3/uL Normal <0.10 [facility] Comment on above: Order Comment: Speci men Type: BLOOD SPECIMENOrdering Facility: [facility] Address: [address] [place] [address] Performed By: #### 5 7021-8 ####KO LABORATORYCLIA [id number] [place] [address] [place] Immature granulocytes/100 WBC (Bld) 0.6 % Normal [facility] Comment on above: Order Comment: Speci men Type: BLOOD SPECIMENOrdering Facility: [facility] Address: [address] [place] [address] Performed By: #### 5 7021-8 ####KO LABORATORYCLIA [id number] [address] Lymphocytes (Bld) [#/Vol] 3.08 10*3/uL Normal 1.00-4.00 [facility] Comment on above: Order Comment: Speci men Type: BLOOD SPECIMENOrdering Facility: [facility] Address: [address] [place] [address] Performed By: #### 5 7021-8 ####KO LABORATORYCLIA [id number] [address] Lymphocytes/100 WBC (Bld) 35.7 % Normal [facility] Comment on above: Order Comment: Speci men Type: BLOOD SPECIMENOrdering Facility: [facility] Address: [address] [place] [address] Performed By: #### 5 7021-8 ####KO LABORATORYCLIA [id number] [address] MCH (RBC) [Entitic mass] 29.9 pg Normal 26.0-34.0 [facility] Comment on above: Order Comment: Speci men Type: BLOOD SPECIMENOrdering Facility: [facility] Address: [address] [place] [address] Performed By: #### 5 7021-8 ####KO LABORATORYCLIA [id number] [address] MCHC (RBC) [Mass/Vol] 32.7 g/dL Normal 30.5-36.0 [facility] Comment on above: Order Comment: Speci men Type: BLOOD SPECIMENOrdering Facility: [facility] Address: [address] [place] [address] Performed By: #### 5 7021-8 ####KO LABORATORYCLIA [id number] [address] MCV (RBC) [Entitic vol] 91.5 fL Normal 80.0-100.0 [facility] Comment on above: Order Comment: Speci men Type: BLOOD SPECIMENOrdering Facility: [facility] Address: [address] [place] [address] Performed By: #### 5 7021-8 ####KO LABORATORYCLIA [id number] [place] [address] [place] Monocytes (Bld) [#/Vol] 0.68 10*3/uL Normal <0.87 [facility] Comment on above: Order Comment: Speci men Type: BLOOD SPECIMENOrdering Facility: [facility] Address: [address] [place] [address] Performed By: #### 5 7021-8 ####KO LABORATORYCLIA [id number] [place] [address] [place] Monocytes/100 WBC (Bld) 7.9 % Normal [facility] Comment on above: Order Comment: Speci men Type: BLOOD SPECIMENOrdering Facility: [facility] Address: [address] [place] [address] Performed By: #### 5 7021-8 ####KO LABORATORYCLIA [id number] [place] [address] [place] Neutrophils (Bld) [#/Vol] 4.45 10*3/uL Normal 1.45-7.50 [facility] Comment on above: Order Comment: Speci men Type: BLOOD SPECIMENOrdering Facility: [facility] Address: [address] [place] [address] Performed By: #### 5 7021-8 ####KO LABORATORYCLIA [id number] [place] [address] [place] Neutrophils/100 WBC (Bld) 51.5 % Normal [facility] Comment on above: Order Comment: Speci men Type: BLOOD SPECIMENOrdering Facility: [facility] Address: [address] [place] [address] Performed By: #### 5 7021-8 ####KO LABORATORYCLIA [id number] [place] [address] [place] Nucleated RBC (Bld) [#/Vol] 10*3/uL Normal <0.01 [facility] Comment on above: Order Comment: Speci men Type: BLOOD SPECIMENOrdering Facility: [facility] Address: [address] [place] [address] Performed By: #### 5 7021-8 ####KO LABORATORYCLIA [id number] [place] [address] [place] Nucleated RBC/100 WBC (Bld) [Ratio] 0.0 /100 WBC Normal [facility] Comment on above: Order Comment: Speci men Type: BLOOD SPECIMENOrdering Facility: [facility] Address: [address] [place] [address] Performed By: #### 5 7021-8 ####KO LABORATORYCLIA [id number] [place] [address] [place] Platelet mean volume (Bld) [Entitic vol] 10.0 fL Normal 9.0-12.7 [facility] Comment on above: Order Comment: Speci men Type: BLOOD SPECIMENOrdering Facility: [facility] Address: [address] [place] [address] Performed By: #### 5 7021-8 ####KO LABORATORYCLIA [id number] [place] [address] [place] Platelets (Bld) [#/Vol] 313 10*3/uL Normal 150-400 [facility] Comment on above: Order Comment: Speci men Type: BLOOD SPECIMENOrdering Facility: [facility] Address: [address] [place] [address] Performed By: #### 5 7021-8 ####KO LABORATORYCLIA [id number] [place] [address] [place] RBC (Bld) [#/Vol] 4.68 10*6/uL Normal 3.90-5.20 [facility] Comment on above: Order Comment: Speci men Type: BLOOD SPECIMENOrdering Facility: [facility] Address: [address] [place] [address] Performed By: #### 5 7021-8 ####KO LABORATORYCLIA [id number] [place] [address] [place] WBC (Bld) [#/Vol] 8.63 10*3/uL Normal 3.70-11.00 [facility] Comment on above: Order Comment: Speci men Type: BLOOD SPECIMENOrdering Facility: [facility] Address: [address] [place] [address] Performed By: #### 5 7021-8 ####[facility] LABORATORYCLIA [id number] [address] [place] CK TOTAL AND CK-MBon 024 CK [Catalytic activity/Vol] 57 U/L Normal 42-196 [facility] Comment on above: Order Comment: Speci men Type: BLOOD SPECIMENOrdering Facility: [facility] Address: [address] [place] [address] Performed By: #### 3 084-1, 2777-1, [id number], , CKCKMB ####[facility] LABORATORYCLIA [id number] [address] CK.MB [Mass/Vol] 2.3 ng/mL Normal <4.4 [facility] Comment on above: Order Comment: Speci men Type: BLOOD SPECIMENOrdering Facility: [facility] Address: [address] [place] [address] Performed By: #### 3 084-1, 2777-1, [id number], , CKCKMB ####[facility] LABORATORYCLIA [id number] [address] CK.MB [Ratio] Normal [facility] Comment on above: Order Comment: Speci men Type: BLOOD SPECIMENOrdering Facility: [facility] Address: [address] [place] [address] Result Comment: CK M B % not reported with CK <100 U/L. Performed By: #### 3 084-1, 2777-1, [id number], , CKCKMB ####[facility] LABORATORYCLIA [id number] [address] [place] CONSULTon 07-10-2023 CONSULT HNO ID: [id number] Author: ÁLVARO LOBO MD Service: Cardiovascular Medicine Author Type: Physician Type: Consults Filed: 07/10/2023 15:09 Note Text: Heart and Vascular [facility] and Lizy Eduardo Department of Cardiovascular Medicine SECTION OF [facility] CARDIOLOGY/[facility] Consultation Note Name: Sandra Schmitz : 1945 Primary Physician: Mandeep Houser DO Consulting Physician: Jim Medina MD SERVICE DATE: July 10, 2023 History: Sandra Schmitz is a 77 year old female, history of hypertension, cardiomyopathy EF 29%, LBBB, hypothyroidism, Factor V Leiden mutation, colon cancer, heart failure who presents with L sided chest pain that started this morning. She also reported lightheadedness and SOB. She reports worsening lightheadedness and low blood pressures while on entresto 49/51 mg po bid. On arrival to the ED, BP 147/86, HR 81, Spo2 98%, afebrile. Labs: NTproBNP 3171, hstrop 25--> 25--> 24. EKG: NSR HR 72, LBBB She received one dose of 40mg IV lasix in the ED. TTE 09/21/22: EF 29%, 1.1, grade I DD, trace MR, TR, mild RI, asc Ao 3.6c m, atrial septal aneurysm Cardiac cath 10/2021: mod LAD, D1 prox 40%, mild RCA disease dominant, EF 35%. 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 She follows with Dr. Oneill, last seen in clinic on 06/04/23. PAST MEDICAL HISTORY Diagnosis Date Acute acalculous cholecystitis 05/30/2020 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 09/22/2020 Acute on chronic systolic CHF (congestive heart failure) ([facility]) 05/03/2020 Aspiration pneumonia (HCC) 05/30/2020 Chest pain 05/03/2020 Chest pressure 01/23/2013 Chronic diastolic congestive heart failure (HCC) 02/14/2021 Clostridium difficile diarrhea 09/28/2020 Complete uterovaginal prolapse Cystocele, midline Essential hypertension 06/14/2020 Homozygous Factor V Leiden mutation (HCC) 05/03/2020 Hypothyroidism IBS (irritable bowel syndrome) 01/23/2013 Palpitation CHRONIC Post-operative state 05/24/2020 Rectocele 05/25/2020 Shortness of breath 05/03/2020 Status post laparoscopic hysterectomy 05/30/2020 Tubular adenoma of colon 12/09/2020 Uterine prolapse 05/03/2020 PAST SURGICAL HISTORY Procedure Laterality Date COLONOSCOPY 01/07/2015 COLONOSCOPY 12/05/2021 repeat in 5 years COLONOSCOPY GEN ANES 12/06/2009 X3 LAST ONE IN 2009 EGD 11/08/2012 EGD 12/05/2021 PAST SURGICAL HISTORY OF 05/14/1999 left foot bunionectomy w/screws PAST SURGICAL HISTORY OF 05/14/1981 ectopic w/tube removal PAST SURGICAL HISTORY OF 2009 CYST REMOVED FROM UTERUS PAST SURGICAL HISTORY OF 05/24/2020 TVH, partial colpectomy, anterior colporrhaphy, Dennis transobturator midurethral sling, cystourethroscopy, rectocele repair with perineorrhaphy, laparoscopic lysis of adhesions and excision of bilateral adnexal structures PAST SURGICAL HISTORY OF 09/07/2020 Laparoscopic cholecystectomy with intraoperative cholangiograms. Dr. Ragsdale FAMILY HISTORY Problem Relation Age of Onset Blood Disease Mother Coronary Artery Disease Mother Cancer Mother lung Blood Disease Father Coronary Artery Disease Father Heart Father pacemaker Diabetes Father Breast Cancer Sister younger sis. COPD Brother Hypertension Brother Heart disease Brother Coronary Artery Disease Maternal Grandmother Ischemic Heart Disease Maternal Grandfather Coronary Artery Disease Maternal Grandfather Coronary Artery Disease Daughter Social History Tobacco Use Smoking status: Former Types: Cigarettes Quit date: 10/22/2002 Years since quittin.7 Smokeless tobacco: Never Vaping Use Vaping Use: Never used Substance Use Topics Alcohol use: No Drug use: No Current Facility-Administered Medications Medication Dose Route Frequency perflutren lipid microspheres 1.3 mL in NaCl (PF) 0.9% 10 mL injection (DEFINITY) INTRAVENOUS DIRECTED PRN sodium chloride 0.9 % (flush) 10 mL (BD POSIFLUSH) 10 mL INTRAVENOUS DIRECTED PRN Allergies As of Date: 07/10/2023 Allergen Noted Reaction EMILIO INHIBITORS 05/03/2020 Other: See Comments BETA-BLOCKERS (BETA-ADRENERGIC BL*05/03/2020 Other: See Comments AUGMENTIN [AMOXICILLIN-POT CLAVUL*01/23/2013 GI Upset CODEINE 10/24/2012 Mental Status Change LIPITOR [ATORVASTATIN] 05/05/2020 Myalgia SULFA (SULFONAMIDE ANTIBIOTICS) 04/28/2020 Other: See Comments AMLODIPINE 04/28/2020 Other: See Comments Fully Assessed 07/10/2023 REVIEW OF SYSTEMS: GENERAL: Negative for: Weight loss or gain, Fever or Chills NECK: Negative for: Swelling, Pain, Stiffness RESPIRATORY: Negative for: Cough, Blood in Sputum GASTROINTESTINAL: Negative for: Trouble swallowing, Heartburn, Change in bowel habits, Blood in stool, Dark black stools MUSCULOSKELETAL: Negative for: Severe Muscle or joint pain, Stiffness , Joint swelling NEUROLOGIC/PSYCHIATRIC: Negative for: Paralysis, Numbness, Tingli (more content not included)... Normal [facility] Comprehensive metabolic 2000 panelon 07-10-2023 Albumin [Mass/Vol] 4.2 g/dL Normal 3.9-4.9 [facility] Comment on above: Order Comment: Lenard jesus Type: BLOOD SPECIMENOrdering Facility: [facility] Address: [address] [place] [address] Performed By: #### 3 3762-6, 75112-6, [id number] ####KO LABORATORYCLIA [id number] [address] STATES OF [facility] ALP [Catalytic activity/Vol] 61 U/L Normal 34-123 [facility] Comment on above: Order Comment: Lenard jesus Type: BLOOD SPECIMENOrdering Facility: [facility] Address: [address] [place] [address] Performed By: #### 3 3762-6, 76079-9, [id number] ####KO LABORATORYCLIA [id number] [address] STATES OF [facility] ALT [Catalytic activity/Vol] 12 U/L Normal 7-38 [facility] Comment on above: Order Comment: Lenard jesus Type: BLOOD SPECIMENOrdering Facility: [facility] Address: [address] [place] [address] Performed By: #### 3 3762-6, 96332-9, [id number] ####KO LABORATORYCLIA [id number] [place] [address] [place] [facility] Anion gap [Moles/Vol] 9 mmol/L Normal 9-18 [facility] Comment on above: Order Comment: Speci men Type: BLOOD SPECIMENOrdering Facility: [facility] Address: [address] [place] [address] Performed By: #### 3 3762-6, 61933-2, [id number] ####KO LABORATORYCLIA [id number] [place] [address] [place] AST [Catalytic activity/Vol] 17 U/L Normal 13-35 [facility] Comment on above: Order Comment: Speci men Type: BLOOD SPECIMENOrdering Facility: [facility] Address: [address] [place] [address] Performed By: #### 3 3762-6, 36162-9, [id number] ####KO LABORATORYCLIA [id number] [place] [address] [place] Bilirubin [Mass/Vol] 0.3 mg/dL Normal 0.2-1.3 [facility] Comment on above: Order Comment: Speci men Type: BLOOD SPECIMENOrdering Facility: [facility] Address: [address] [place] [address] Performed By: #### 3 3762-6, 18544-4, [id number] ####KO LABORATORYCLIA [id number] [address] [place] Calcium [Mass/Vol] 9.9 mg/dL Normal 8.5-10.2 [facility] Comment on above: Order Comment: Speci men Type: BLOOD SPECIMENOrdering Facility: [facility] Address: [address] [place] [address] Performed By: #### 3 3762-6, 06810-4, [id number] ####KO LABORATORYCLIA [id number] [place] [address] [place] Chloride [Moles/Vol] 104 mmol/L Normal 97-105 [facility] Comment on above: Order Comment: Speci men Type: BLOOD SPECIMENOrdering Facility: [facility] Address: [address] [place] [address] Performed By: #### 3 3762-6, 49761-1, [id number] ####KO LABORATORYCLIA [id number] [place] [address] [place] [facility] CO2 [Moles/Vol] 28 mmol/L Normal 22-30 [facility] Comment on above: Order Comment: Lenard jesus Type: BLOOD SPECIMENOrdering Facility: [facility] Address: [address] [place] [address] Performed By: #### 3 3762-6, 65221-4, [id number] ####KO LABORATORYCLIA [id number] [place] [address] [place] Creatinine [Mass/Vol] 0.89 mg/dL Normal 0.58-0.96 [facility] Comment on above: Order Comment: Speci men Type: BLOOD SPECIMENOrdering Facility: [facility] Address: [address] [place] [address] Performed By: #### 3 3762-6, 81739-7, [id number] ####KO LABORATORYCLIA [id number] [address] Creatinine and Glomerular filtration rate.predicted panel (S/P/Bld) 67 mL/min/1.73m??? Normal >=60 [facility] Comment on above: Order Comment: Lenard jesus Type: BLOOD SPECIMENOrdering Facility: [facility] Address: [address] [place] [address] Result Comment: Aaron mated Glomerular Filtration Rate (eGFR) is calculated using the 2020 CKD-EPI creatinine equation. This equation utilizes serum creatinine, sex, and age as parameters. The creatinine assay has traceable calibration to isotope dilution-mass spectrometry. Refer to KDIGO guidelines for clinical interpretation. In patients with unstable renal function, e.g. those with acute kidney injury, the eGFR may not accurately reflect actual GFR. Performed By: #### 3 3762-6, 13849-1, [id number] ####KO LABORATORYCLIA [id number] [address] [place] Glucose [Mass/Vol] 105 mg/dL High 74-99 [facility] Comment on above: Order Comment: Speci men Type: BLOOD SPECIMENOrdering Facility: [facility] Address: [address] [place] [address] Result Comment: The [place] [employer] (ADA) provides guidance for cutoff values for fasting glucose and random glucose. The ADA defines fasting as no caloric intake for at least 8 hours. Fasting plasma glucose results between 100 to 125 mg/dL indicate increased risk for diabetes (prediabetes). Fasting plasma glucose results greater than or equal to 126 mg/dL meet the criteria for diagnosis of diabetes. In the absence of unequivocal hyperglycemia, results should be confirmed by repeat testing. In a patient with classic symptoms of hyperglycemia or hyperglycemic crisis, random plasma glucose results greater than or equal to 200 mg/dL meet the criteria for diagnosis of diabetes. Reference: Standards of Medical Care in Diabetes 2016, [place] [employer]. Diabetes Care. 2016.39(Suppl 1). Performed By: #### 3 3762-6, 11856-1, [id number] ####KO LABORATORYCLIA [id number] [place] [address] [place] Potassium [Moles/Vol] 4.3 mmol/L Normal 3.7-5.1 [facility] Comment on above: Order Comment: Lenard jesus Type: BLOOD SPECIMENOrdering Facility: [facility] Address: [address] [place] [address] Performed By: #### 3 3762-6, 37519-0, [id number] ####KO LABORATORYCLIA [id number] [place] [address] [place] Protein [Mass/Vol] 7.5 g/dL Normal 6.3-8.0 [facility] Comment on above: Order Comment: Lenard jesus Type: BLOOD SPECIMENOrdering Facility: [facility] Address: [address] [place] [address] Performed By: #### 3 3762-6, 52950-4, [id number] ####KO LABORATORYCLIA [id number] [place] [address] [place] Sodium [Moles/Vol] 141 mmol/L Normal 136-144 [facility] Comment on above: Order Comment: Lenard jesus Type: BLOOD SPECIMENOrdering Facility: [facility] Address: [address] [place] [address] Performed By: #### 3 3762-6, 54522-8, [id number] ####KO LABORATORYCLIA [id number] [place] [address] [facility] Urea nitrogen [Mass/Vol] 33 mg/dL High 7-21 [facility] Comment on above: Order Comment: Speci men Type: BLOOD SPECIMENOrdering Facility: [facility] Address: [address] [id number] Performed By: #### 3 3762-6, 54393-3, [id number] ####[facility] LABORATORYCLIA [id number] [place] [id number] [facility] ED NOTEon 07-10-2023 ED NOTE HNO ID: [id number] Author: OLIVERIO RITTER, CARO Service: Nursing Author Type: Registered Nurse Type: ED Notes Filed: 07/10/2023 13:06 Note Text: Report called to 4S RN at this time. [facility] ED NOTE HNO ID: [id number] Author: OLIVERIO IRTTER RN Service: Nursing Author Type: Registered Nurse Type: ED Notes Filed: 07/10/2023 12:50 Note Text: Dr. Sams rounding on patient at bedside at this time. [facility] ED NOTE HNO ID: [id number] Author: OLIVERIO RITTER RN Service: Nursing Author Type: Registered Nurse Type: ED Notes Filed: 07/10/2023 12:13 Note Text: Room air ambulatory pulse oximetry obtained at 92-93%. Patient returned to bed. Patient tolerated fairly. She does endorse that she has unsteadiness and dizziness when ambulating. SPO2 90% on RA when returned to bed. Discussed with Dr. Medina at this time. [facility] ED NOTE HNO ID: [id number] Author: BENTLEY PATTON RN Service: ? Author Type: Registered Nurse Type: ED Notes Filed: 07/10/2023 07:50 Note Text: Pt spo2 noted to be 89-90% on room air. Placed on O2, 2lpm via NC. Dr. Medina aware. [facility] ED NOTE HNO ID: [id number] Author: MARY LOU LIGHT, CARO Service: ? Author Type: Registered Nurse Type: ED Notes Filed: 07/10/2023 07:17 Note Text: Chest pressure woke her up out of sleep at approx 0430 C/O chest pressure 6/10 [facility] ED PROV NOTEon 07-10-2023 ED PROV NOTE HNO ID: [id number] Author: JIM MEDINA MD Service: ? Author Type: Physician Type: ED Provider Notes Filed: 07/10/2023 12:31 Note Text: ED Provider Note Patient Name: Sandra Schmitz : 1945 SERVICE DATE: 07/10/23 History Patient presents with: Chest Pain Patient presenting for evaluation secondary to chest pain. Patient has an underlying history of congestive heart failure, hypertension, heart disease. Patient states that she had a recent titration of her medication and was started on Entresto. Patient reports that lately she has been dealing with some issues with lightheadedness. States that it has been associated with lightheadedness on standing and shortness of breath with bending over. At about 530 this morning patient developed chest back pressure. Was associated with some mild shortness of breath. She denies any diaphoresis or radiation of the pain. States that it feels somewhat atypical from her cardiac chest pain in the past. PAST MEDICAL HISTORY Diagnosis Date Acute acalculous cholecystitis 05/30/2020 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 09/22/2020 Acute on chronic systolic CHF (congestive heart failure) (HCC) 05/03/2020 Aspiration pneumonia (HCC) 05/30/2020 Chest pain 05/03/2020 Chest pressure 01/23/2013 Chronic diastolic congestive heart failure (HCC) 02/14/2021 Clostridium difficile diarrhea 09/28/2020 Complete uterovaginal prolapse Cystocele, midline Essential hypertension 06/14/2020 Homozygous Factor V Leiden mutation (HCC) 05/03/2020 Hypothyroidism IBS (irritable bowel syndrome) 01/23/2013 Palpitation CHRONIC Post-operative state 05/24/2020 Rectocele 05/25/2020 Shortness of breath 05/03/2020 Status post laparoscopic hysterectomy 05/30/2020 Tubular adenoma of colon 12/09/2020 Uterine prolapse 05/03/2020 PAST SURGICAL HISTORY Procedure Laterality Date COLONOSCOPY 01/07/2015 COLONOSCOPY 12/05/2021 repeat in 5 years COLONOSCOPY GEN ANES 12/06/2009 X3 LAST ONE IN 2009 EGD 11/08/2012 EGD 12/05/2021 PAST SURGICAL HISTORY OF 05/14/1999 left foot bunionectomy w/screws PAST SURGICAL HISTORY OF 05/14/1981 ectopic w/tube removal PAST SURGICAL HISTORY OF 2009 CYST REMOVED FROM UTERUS PAST SURGICAL HISTORY OF 05/24/2020 TVH, partial colpectomy, anterior colporrhaphy, Dennis transobturator midurethral sling, cystourethroscopy, rectocele repair with perineorrhaphy, laparoscopic lysis of adhesions and excision of bilateral adnexal structures PAST SURGICAL HISTORY OF 09/07/2020 Laparoscopic cholecystectomy with intraoperative cholangiograms. Dr. Ragsdale FAMILY HISTORY Problem Relation Age of Onset Blood Disease Mother Coronary Artery Disease Mother Cancer Mother lung Blood Disease Father Coronary Artery Disease Father Heart Father pacemaker Diabetes Father Breast Cancer Sister younger sis. COPD Brother Hypertension Brother Heart disease Brother Coronary Artery Disease Maternal Grandmother Ischemic Heart Disease Maternal Grandfather Coronary Artery Disease Maternal Grandfather Coronary Artery Disease Daughter Social History Tobacco Use Smoking status: Former Types: Cigarettes Quit date: 10/22/2002 Years since quittin.7 Smokeless tobacco: Never Vaping Use Vaping Use: Never used Substance and Sexual Activity Alcohol use: No Drug use: No Sexual activity: Not Currently ALLERGIES Allergen Reactions Emilio Inhibitors Other: See Comments Short of breath, symptoms of heart failure Beta-Blockers (Beta* Other: See Comments Short of breath, symptoms of heart failure Augmentin [Amoxicil* GI Upset Codeine Mental Status Change Patient felt like she was made out of lead Lipitor [Atorvastat* Myalgia Muscle aches Sulfa (Sulfonamide * Other: See Comments Amlodipine Other: See Comments lightheaded Review of Systems Constitutional: Negative for activity change and fever. HENT: Negative for rhinorrhea and sore throat. Respiratory: Positive for shortness of breath. Negative for cough. Cardiovascular: Positive for chest pain. Gastrointestinal: Negative for abdominal pain, diarrhea, nausea and vomiting. Genitourinary: Negative for dysuria. Musculoskeletal: Negative for myalgias. Skin: Negative for rash. Neurological: Positive for light-headedness. Negative for weakness and numbness. Psychiatric/Behavioral: Negative for self-injury. Physical Exam Vitals BP Pulse Temp Temp src Resp SpO2 Weight Height 07/10/23 0714 07/10/23 0714 07/10/23 0714 07/10/23 0714 07/10/23 0714 07/10/23 0714 07/10/23 0717 07/10/23 0717 147/86 81 36.6 ?C (97.9 ?F) Oral 16 98 % 90.9 kg (200 lb 6.4 oz) 1.6 m (5' 3) Physical Exam Vitals and nursing note reviewed. Constitutional: General: She is not in acute distress. Appearance: Normal appearance. She is well-developed. HENT: Head: Normocephalic and atraumatic. Nose: Nose normal. Mouth/Throat: M (more content not included)... Normal [facility] EKGon 07-10-2023 Electrocardiogram Ventricular Rate : 7 2 BPM Atrial Rate : 72 BPM P-R Interval : 134 ms QRS Duration : 172 ms Q-T Interval : 424 ms QTC Calculation(Bazett) : 464 ms Calculated P [place] : 39 degrees Calculated R [place] : -10 degrees Calculated T [place] : 153 degrees NORMAL SINUS RHYTHM LEFT BUNDLE BRANCH BLOCK ABNORMAL ECG 716 Confirmed by MD MEDINA MICHAEL ([id number]), editorial director Alyssa Russell ([id number]) on 07/10/2023 3:39:44 PM NAME : SANDRA SCHMITZ PID : [id number] : 1945 Gender : Female Race : ORD : Procedure Date : Jul 10 2023 07:12:14 Edit Date : Jul 10 2023 15:39:46 Diagnosis: NORMAL SINUS RHYTHM LEFT BUNDLE BRANCH BLOCK ABNORMAL ECG 716 Confirmed by MD MEDINA MICHAEL ([id number]), editorial director Alyssa Russell ([id number]) on 07/10/2023 3:39:44 PM Test Reason : Location : 1 : ER ED Overread By : MD MEDINA MICHAEL Edited By : Alyssa Russell Referred By : , Acquired by : Terrie AMADOR [facility] HIGH SENSITIVITY TROPONIN T (INITIAL)on 07-10-2023 Troponin T.cardiac High sensitivity method [Mass/Vol] 25 ng/L High <12 [facility] Comment on above: Order Comment: Speci men Type: BLOOD SPECIMENOrdering Facility: [facility] Address: [address] [place] [address] Result Comment: When assessing risk for acute coronary syndromes: In patients undergoing blood draw greater than or equal to 2 hours from symptom onset, with history of very low to moderate risk and non-ischemic ECG, an initial hs-Troponin T less than 12 ng/L AND a 1 hour delta hs-Troponin T less than 3 ng/L should be considered very low risk for 30 day MACE. Performed By: #### 3 3762-6, 90792-9, [id number] ####KO LABORATORYCLIA [id number] [place] [address] [place] HIGH SENSITIVITY TROPONIN T (SECOND)on 07-10-2023 Troponin T.cardiac High sensitivity method [Mass/Vol] 25 ng/L High <12 [facility] Comment on above: Order Comment: Lenard jesus Type: BLOOD SPECIMENOrdering Facility: [facility] Address: [address] [place] [address] Result Comment: When assessing risk for acute coronary syndromes: In patients undergoing blood draw greater than or equal to 2 hours from symptom onset, with history of very low to moderate risk and non-ischemic ECG, an initial hs-Troponin T less than 12 ng/L AND a 1 hour delta hs-Troponin T less than 3 ng/L should be considered very low risk for 30 day MACE. Performed By: #### L [id number] ####KO LABORATORYCLIA [id number] [place] [address] [place] HIGH SENSITIVITY TROPONIN T (THIRD) 3 HRS AFTER INITIALon 07-10-2023 Troponin T.cardiac High sensitivity method [Mass/Vol] 24 ng/L High <12 [facility] Comment on above: Order Comment: Lenard jesus Type: BLOOD SPECIMENOrdering Facility: [facility] Address: [address] [place] [address] Result Comment: When assessing risk for acute coronary syndromes: In patients undergoing blood draw greater than or equal to 2 hours from symptom onset, with history of very low to moderate risk and non-ischemic ECG, an initial hs-Troponin T less than 12 ng/L AND a 1 hour delta hs-Troponin T less than 3 ng/L should be considered very low risk for 30 day MACE. Performed By: #### 3 084-1, 2777-1, [id number], 16865-2, [id number] ####KO LABORATORYCLIA [id number] [place] [address] [place] HISTORY PHYSICALon HISTORY PHYSICAL HNO ID: [id number] Author: REMINGTON CAI MD Service: Hospital Medicine Author Type: Physician Type: H&P Filed: 07/10/2023 13:52 Note Text: DEPARTMENT OF HOSPITAL MEDICINE HISTORY AND PHYSICAL EXAM SERVICE DATE: 07/10/2023 SERVICE TIME: 1:49 PM Hospital Medicine/Primary Attending: Remington Cai MD NIGHT AND WEEKEND COVERAGE: [facility] COVERAGE: Nights: [phone], please page [facility] Night coverage pager [phone]. Admission date: 07/10/2023 MEDICAL DECISION MAKING Reason for Admission: Chest pain Reviewed notes: Interpreted labs: Interpreted imaging indpendently: Interpreted EKG independently: See EKG interpretation below. ASSESSMENT/PLAN Chest q-yoo-pdrglyliietn with elevated left hemidiaphragm and bibasilar atelectasis Dr. Greenfield is to schedule implantation of pacer defibrillator Changing admission to 2 N. Consultants: Dr. Lobo for cardiology PROCEDURES: NONE Disposition: To be determined EK07/10/2023 sinus rhythm left bundle branch block with her last prior EKG being the same axis and amplitude but the complex now has moved from QRS duration of 100 ms to 172 ms and this is a new left bundle branch block Echocardiogram: 09/21/2022 - The left ventricle is mildly dilated. Left ventricular systolic function is severely decreased. EF = 29 ? 5% (2D biplane) Grade I left ventricular diastolic dysfunction. Segmental wall motion abnormalities as described above. - The right ventricle is normal in size. Right ventricular systolic function is normal. - There are no significant valvular abnormalities. Recent Labs 07/10/23721 MCV 91.5 MCH 29.9 MPV 10.0 Recent Labs 07/10/23721 WBC 8.63 RBC 4.68 HB 14.0 HCT 42.8 PLT 313 MCV 91.5 MCH 29.9 MPV 10.0 ABSNEUT 4.45 NEUTP 51.5 LYMPHP 35.7 MONOP 7.9 EODINP 3.0 Recent Labs 07/10/23721 GLUC 105* NA 141 K 4.3 CHLOR 104 CO2 28 CREAT 0.89 BUN 33* ANION 9 CA 9.9 TPROT 7.5 ALB 4.2 TBILI 0.3 ALKPHOS 61 AST 17 ALT 12 Recent Labs 07/10/23 0722 GLUC 105* No results for input(s): LACT in the last 168 hours. Recent Labs 07/10/23 1047 07/10/23 0722 BUN -- 33* CREAT -- 0.89 CA -- 9.9 P 3.6 -- MG 2.0 -- BNP 05/17/2023 4602=> BNP 07/10/2023 3171 Hemoglobin A1C (%) Date Value 07/21/2022 5.7 09/14/2021 5.7 TSH Date Value Ref Range Status 05/17/2023 1.940 0.270 - 4.200 mIU/L Final Most recent labs HOSPITAL COURSE: Sandra Schmitz is a 77 year old female presented with past medical history of severe left ventricular systolic dysfunction with combined systolic diastolic heart failure severe cardiomyopathy nonischemic with normal coronaries with desynchronized left ventricular contractions who presents with chest discomfort and some shortness of breath to the emergency department. She was recently seen in the office ()06/04/2023) by Dr. Oneill for cardiology. She had been having palpitations that he was concerned about ventricular tachycardia or paroxysmal atrial fibrillation. She has seen Dr. Greenfield the densitometer reader. She is to be scheduled for pacer defibrillator implantation. Her exam shows some crackles in the right base HJR to the jaw. Dr. Oneill thought that she was probably having runs of ventricular tachycardia or atrial fibrillation palpitations she was experiencing prior to this. On my examination at admission she has some tenderness over scalene muscles and also supers scapular area and over her chest wall with some increased work of breathing and some tachypnea at rest on room air with crackles in the right base it seems she has some low-grade bronchospasm and needs diuresis. Dr. Lobo will evaluate the patient that we will watch her rhythm and I will send a copy of the admission to Dr. Greenfield. Principal Problem: Acute decompensated heart failure (HCC) Active Problems: Acute on chronic systolic CHF (congestive heart failure) (HCC) Obesity, Class I, BMI 30-34.9 Hypothyroidism Chronic 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) Left bundle branch block Nonischemic cardiomyopathy (HCC) Resolved Problems: * No resolved hospital problems. * ROS: All systems reviewed and negative except as above. PHYSICAL EXAM: BP 116/63 Pulse 57 Temp (Src) 97.9 (Oral) Resp 22 Ht 5' 3 (1.60m) Wt 200 lb 6.4 oz (90.9kg) SpO2 95% BMI 35.51 kg/(m2). O2 Therapy: Nasal Cannula, Liters: 2 Physical Exam Performed GENERAL: Alert, no distress, cooperative HEENT: Unremarkable SKIN: Warm and dry she does have some presacral edema NECK: No jugulovenous distention, Supple she has HJR to the jaw LUNGS: Clear to auscultation, respiratory distress -she has recruited all her accessory muscles using her intercostals abdominals and her scalenes with about half centimeter tracheal tug even on oxygen CARDIAC: Rhythm: regular rate and rhythm, Rate: bradycardia, S1: decreased (more content not included)... Normal [facility] Magnesium [facility] [place] Magnesium [Mass/Vol] 2.0 mg/dL Normal 1.7-2.3 [facility] Comment on above: Order Comment: [facility] Type: BLOOD SPECIMENOrdering Facility: [facility] Address: [address] [place] [address] Performed By: #### 3 084-1, 2777-1, [id number], 31352-0, CKCKMB ####[facility] LABORATORYCLIA [id number] [place] [address] [place] NT-proBNP [facility] [place] 07[facility]10 Natriuretic peptide.B prohormone N-Terminal [Mass/Vol] 3171 pg/mL High <450 [facility] Comment on above: Order Comment: [facility] Type: BLOOD SPECIMENOrdering Facility: [facility] Address: [address] [place] [address] Performed By: #### 3 3762-6, 61858-7, [id number] ####[facility] LABORATORYCLIA [id number] [place] [id number] [place] [facility] Phosphate [Mass/Vol] 3.6 mg/dL Normal 2.7-4.8 [facility] Comment on above: Order Comment: Speci men Type: BLOOD SPECIMENOrdering Facility: [facility] Address: [address] [place] [address] Performed By: #### 3 084-1, 2777-1, [id number], 07666-7, CKCKMB ####[facility] LABORATORYCLIA [id number] [address] Urate SerPl-mCncon Urate [Mass/Vol] 9.1 mg/dL High 2.5-6.6 [facility] Comment on above: Order Comment: Speci men Type: BLOOD SPECIMENOrdering Facility: [facility] Address: [address] [place] [address] Performed By: #### 3 084-1, 2777-1, [id number], 86341-3, CKCKMB ####[facility] LABORATORYCLIA [id number] [address] Urinalysis complete panel (U )on 07-10-2023 Bacteria LM.HPF (Urine sed) [#/Area] Few Abnormal None Seen [facility] Comment on above: Order Comment: Speci men Type: URINE SPECIMENOrdering Facility: [facility] Address: [address] [place] [address] Performed By: #### 2 4356-8 ####[facility] LABORATORYCLIA [id number] [address] Bilirubin Ql (U) Negative Normal Negative [facility] Comment on above: Order Comment: Speci men Type: URINE SPECIMENOrdering Facility: [facility] Address: [address] [place] [address] Performed By: #### 2 4356-8 ####[facility] LABORATORYCLIA [id number] [address] Clarity (Unsp spec) Clear Normal Clear [facility] Comment on above: Order Comment: Speci men Type: URINE SPECIMENOrdering Facility: [facility] Address: [address] [place] [address] Performed By: #### 2 4356-8 ####KO LABORATORYCLIA [id number] [place] [address] [place] Color (U) Yellow Normal Yellow [facility] Comment on above: Order Comment: Speci men Type: URINE SPECIMENOrdering Facility: [facility] Address: [address] [place] [address] Performed By: #### 2 4356-8 ####KO LABORATORYCLIA [id number] [place] [address] [place] Epithelial cells LM.HPF (Urine sed) [#/Area] Few Normal [facility] Comment on above: Order Comment: Speci men Type: URINE SPECIMENOrdering Facility: [facility] Address: [address] [place] [address] Performed By: #### 2 4356-8 ####KO LABORATORYCLIA [id number] [address] [place] Glucose Test strip (U) [Mass/Vol] Negative Normal Negative [facility] Comment on above: Order Comment: Speci men Type: URINE SPECIMENOrdering Facility: [facility] Address: [address] [place] [address] Performed By: #### 2 4356-8 ####KO LABORATORYCLIA [id number] [address] [place] Hemoglobin Ql (U) Negative Normal Negative [facility] Comment on above: Order Comment: Speci men Type: URINE SPECIMENOrdering Facility: [facility] Address: [address] [place] [address] Performed By: #### 2 4356-8 ####KO LABORATORYCLIA [id number] [place] [address] [place] Ketones Ql (U) Negative Normal Negative [facility] Comment on above: Order Comment: Speci men Type: URINE SPECIMENOrdering Facility: [facility] Address: [facility] [place] [address] Performed By: #### 2 4356-8 ####KO LABORATORYCLIA [id number] [address] [place] Leukocyte esterase Test strip Ql (U) Negative Normal Negative [facility] Comment on above: Order Comment: Speci men Type: URINE SPECIMENOrdering Facility: [facility] Address: [address] [place] [address] Performed By: #### 2 4356-8 ####KO LABORATORYCLIA [id number] [place] [address] [place] Nitrite Ql (U) Negative Normal Negative [facility] Comment on above: Order Comment: Speci men Type: URINE SPECIMENOrdering Facility: [facility] Address: [address] [place] [address] Performed By: #### 2 4356-8 ####KO LABORATORYCLIA [id number] [place] [address] [place] pH (U) 6.5 [pH] Normal 5.0-8.0 [facility] Comment on above: Order Comment: Speci men Type: URINE SPECIMENOrdering Facility: [facility] Address: [address] [place] [address] Performed By: #### 2 4356-8 ####KO LABORATORYCLIA [id number] [place] [address] [place] Protein (U) [Mass/Vol] Negative Normal Negative [facility] Comment on above: Order Comment: Speci men Type: URINE SPECIMENOrdering Facility: [facility] Address: [address] [place] [address] Performed By: #### 2 4356-8 ####KO LABORATORYCLIA [id number] [place] [address] [place] RBC LM.HPF (Urine sed) [#/Area] 0-3 /HPF Normal 0-3 /HPF [facility] Comment on above: Order Comment: Speci men Type: URINE SPECIMENOrdering Facility: [facility] Address: [address] [place] [address] Performed By: #### 2 4356-8 ####KO LABORATORYCLIA [id number] [place] [address] [place] Specific gravity (U) [Rel density] <=1.005 Low 1.005-1.030 [facility] Comment on above: Order Comment: Speci men Type: URINE SPECIMENOrdering Facility: [facility] Address: [address] [place] [address] Performed By: #### 2 4356-8 ####KO LABORATORYCLIA [id number] [address] Urobilinogen Ql (U) 0.2 EU/dL Normal 0.2-1.0 EU/dL [facility] Comment on above: Order Comment: Speci men Type: URINE SPECIMENOrdering Facility: [facility] Address: [address] [place] [address] Performed By: #### 2 4356-8 ####[facility] LABORATORYCLIA [id number] [address] [place] WBC LM.HPF (Urine sed) [#/Area] 0-5 /HPF Normal 0-5 /HPF [facility] Comment on above: Order Comment: Speci men Type: URINE SPECIMENOrdering Facility: [facility] Address: [address] [place] [address] Performed By: #### 2 4356-8 ####[facility] LABORATORYCLIA [id number] [address] OF [facility] XR CHEST 2V FRONTAL/LATon XR CHEST 2V FRONTAL/LAT * * *Final Report* * * DATE OF EXAM: Jul 10 2023 8:13AM MDX 5291 - XR CHEST 2V FRONTAL/LAT / PROCEDURE REASON: Chest Pain * * * * Physician Interpretation * * * * EXAMINATION: CHEST RADIOGRAPH (2 VIEW FRONTAL and LATERAL) CLINICAL HISTORY: Chest Pain MQ: XC2_6 EXAM DATE/TIME: 07/10/2023 8:13 AM COMPARISON: 05/17/2023 RESULT: Lines, tubes, and devices: None. Lungs and pleura: No consolidation. No lung mass. No pleural effusion. No pneumothorax. Mild bibasilar atelectasis/scar. Stable left hemidiaphragm elevation. Cardiomediastinal silhouette: Stable cardiomediastinal silhouette. Bones and soft tissues: Unremarkable. IMPRESSION: No acute radiographic abnormality. 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 Apprentice: KEYANA Transcribe Date/Time: Jul 10 2023 8:19A Dictated by : YESENIA GUZMAN MD This examination was interpreted and the report reviewed and electronically signed by: YESENIA GUZMAN MD on Jul 10 2023 8:20AM EST [id number] [facility] 06-12-2023 [facility] Office Visit (AGCARD POB) ----- SANDRA SCHMITZ ([id number]) 1945 [address]* Date Time Provider Department 06/12/23 3:20 PM [facility] During your visit today, we recorded the following information about you: Pulse Blood pressure Weight Height 68/minute 115/74 86.2 kg 1.6 m Randa Smith MA 06/12/2023 4:02 PM Signed No cardiac complaints today. FELIPE Rios Sergey Aleksandrovich, MD 06/12/2023 4:02 PM Signed Heart and Vascular [facility] SECTION OF CARDIAC PACING and ELECTROPHYSIOLOGY OUTPATIENT VISIT DATE June 12, 2023 OUTPATIENT VISIT TYPE NEW PRIMARY CARE PHYSICIAN: Mandeep Houser [address] [phone] REFERRING PHYSICIAN: Santo Oneill MD. HISTORY OF PRESENT ILLNESS: 77-year-old female with history of nonischemic cardiomyopathy, severe LV systolic function, LVEF of 30% despite GDMT, LBBB with QRS of 170 ms, was referred for consideration of CUT PLUG PACKER-D system implantation for prevention of sudden cardiac and heart failure management. Ms. Schmitz presents accompanied by her daughter. She reports feeling well, although has baseline exertional dyspnea, denies palpitation, chest pain, or syncope. She is compliant with her medical therapy. ECG shows sinus bradycardia 59 bpm with LBBB and QRS of 170 ms. PAST MEDICAL HISTORY Diagnosis Date Acute acalculous cholecystitis 05/30/2020 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 09/22/2020 Acute on chronic systolic CHF (congestive heart failure) ([facility]) 05/03/2020 Aspiration pneumonia ([facility]) 05/30/2020 Chest pain 05/03/2020 Chest pressure 01/23/2013 Chronic diastolic congestive heart failure ([facility]) 02/14/2021 Clostridium difficile diarrhea 09/28/2020 Complete uterovaginal prolapse Cystocele, midline Essential hypertension 06/14/2020 Homozygous Factor V Leiden mutation ([facility]) 05/03/2020 Hypothyroidism IBS (irritable bowel syndrome) 01/23/2013 Palpitation CHRONIC Post-operative state 05/24/2020 Rectocele 05/25/2020 Shortness of breath 05/03/2020 Status post laparoscopic hysterectomy 05/30/2020 Tubular adenoma of colon 12/09/2020 Uterine prolapse 05/03/2020 MEDICATIONS: furosemide (LASIX) 40 mg tabletTake 1 tablet by mouth once daily.Disp: 30 tabletRfl: 3 sacubitril-valsartan (ENTRESTO) 49-51 mg tabletTake 1 tablet by mouth two times a day.Disp: 60 tabletRfl: 3 metoprolol succinate ER (TOPROL XL) 25 mg 24 hr tabletTake 1 tablet by mouth once daily.Disp: 90 tabletRfl: 0 levothyroxine (LEVOXYL) 88 mcg tabletTake 1 tablet by mouth once daily. Take on empty stomach. For ThyroidDisp: 90 tabletRfl: 1 cyanocobalamin (VITAMIN B-12) 1,000 mcg tabTake 1 tablet by mouth once daily.Disp: 30 tabletRfl: 2 benzonatate (TESSALON PERLES) 100 mg capsuleTake 1 capsule by mouth three times daily as needed for cough.Disp: 21 capsuleRfl: 0 Cholecalciferol, Vitamin D3, 50 mcg (2,000 unit) capTake 2 capsules by mouth once daily.Disp: Rfl: OREGANO OIL ORALTake by mouth once daily.Disp: Rfl: L. acidophilus/L. rhamnosus (FLORAJEN WOMEN ORAL)Take 1 tablet by mouth as needed.Disp: Rfl: ZINC ORALTake 50 mg by mouth as needed.Disp: Rfl: aspirin, enteric coated (ECOTRIN LOW STRENGTH) 81 mg EC tabletTake 1 tablet by mouth once daily.Disp: Rfl: 0 dapagliflozin propanediol (FARXIGA) 10 mg tabletTake 1 tablet by mouth daily with breakfast.Disp: 30 tabletRfl: 3 liothyronine (CYTOMEL) 5 mcg tabletTake 1 tablet by mouth once daily. In the morning for thyroidDisp: 90 tabletRfl: 1 (Patient not taking: Reported on 06/12/2023) meloxicam (MOBIC) 15 mg tabletTake 1 tablet by mouth once daily. As needed for joint pain, Take with food.Disp: 30 tabletRfl: 1 (Patient not taking: Reported on 06/12/2023) promethazine (PHENERGAN) 6.25 mg/5 mL syrupTake 5-10ml by mouth 4 times daily as needed for coughDisp: 200 mLRfl: 0 (Patient not taking: Reported on 06/12/2023) omeprazole (PRILOSEC) 40 mg capsuleTake 1 capsule by mouth once daily.Disp: 30 capsuleRfl: 2 (Patient not taking: Reported on 06/12/2023) ondansetron (ZOFRAN) 4 mg tabletTake 1 tablet by mouth once daily as needed (for nausea.).Disp: 30 tabletRfl: 0 (Patient not taking: Reported on 06/12/2023) REVIEW OF SYSTEMS: Review of Systems Constitutional: Negative for fatigue and fever. HENT: Negative for hearing loss. Eyes: Negative for pain. Respiratory: Positive for shortness of breath. Negative for cough. Cardiovascular: Negative for chest pain, palpitations and leg swelling. Gastrointestinal: Negative for abdominal pain and blood in stool. Endocrine: Negative for cold intolerance. Genitourinary: Negative for hematuria. Musculoskeletal: Negative for back pain. Skin: Negative for pallor. Neurological: Negative for dizziness and syncope. Psychiatric/Behavior (more content not included)... Normal [facility] XR Chest PA and Lateralon IMPRESSION: Stable exam with mild cardiomegaly and nonspecific parenchymal changes in left lung base. 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 Apprentice: KEYANA Transcribe Date/Time: May 20 2023 10:19A Dictated by : KRISHNA CRUZ MD This examination was interpreted and the report reviewed and electronically signed by: KRISHNA CRUZ MD on May 20 2023 10:20AM [facility] DIVISION OF RADIOLOGY * * *Final Report* * * DATE OF EXAM: May 17 2023 1:42PM WOX 5291 - XR CHEST 2V FRONTAL/LAT / PROCEDURE REASON: Chronic cough * * * * Physician Interpretation * * * * EXAMINATION: CHEST RADIOGRAPH (2 VIEW FRONTAL & LATERAL) CLINICAL HISTORY: Chronic cough MQ: XC2_6 EXAM DATE/TIME: 05/17/2023 1:42 PM COMPARISON: 12/14/2022. RESULT: Lines, tubes, and devices: None. Lungs and pleura: There is mild elevation of the left hemidiaphragm with fibrotic/atelectatic changes in left lung base. No consolidation. No lung mass. No pleural effusion. No pneumothorax. Cardiomediastinal silhouette: There is mild cardiomegaly and there are vague calcified lymph nodes in the guillermina. Bones and soft tissues: Unremarkable. DIVISION OF RADIOLOGY Provider, [facility] - 05/20/2023 * * *Final Report* * * DATE OF EXAM: May 17 2023 1:42PM WOX 5291 - XR CHEST 2V FRONTAL/LAT / PROCEDURE REASON: Chronic cough * * * * Physician Interpretation * * * * EXAMINATION: CHEST RADIOGRAPH (2 VIEW FRONTAL & LATERAL) CLINICAL HISTORY: Chronic cough MQ: XC2_6 EXAM DATE/TIME: 05/17/2023 1:42 PM COMPARISON: 12/14/2022. RESULT: Lines, tubes, and devices: None. Lungs and pleura: There is mild elevation of the left hemidiaphragm with fibrotic/atelectatic changes in left lung base. No consolidation. No lung mass. No pleural effusion. No pneumothorax. Cardiomediastinal silhouette: There is mild cardiomegaly and there are vague calcified lymph nodes in the guillermina. Bones and soft tissues: Unremarkable. IMPRESSION IMPRESSION: Stable exam with mild cardiomegaly and nonspecific parenchymal changes in left lung base. 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 Transcribe Date/Time: May 20 2023 10:19A Dictated by : KRISHNA CRUZ MD This examination was interpreted and the report reviewed and electronically signed by: KRISHNA CRUZ MD on May 20 2023 10:20AM EST [facility] XR Chest PA and LateralOrder ed By: Cc Provider on 05-20-2023 [facility] XR Chest PA and Lateralon Radiology Study observation (narrative) [facility] XR CHEST 2V FRONTAL/LATon [facility] STREP A MOLECULAR (POC)on Procedural Control Valid [facility] Strep A (POCT) Negative Negative [facility] CT ABD/PEL W IVCONon 023 [facility] DXA-AXIAL SKELETONon 023 [facility] VITAMIN D 25 HYDROXYon 07-22 25-hydroxyvitamin D3 [Mass/Vol] 45.2 ng/mL 31.0 - 80.0 ng/mL [facility] CBC panel Auto (Bld)on 07-21 Erythrocyte distribution width (RBC) [Ratio] 14.2 % 11.5 - 15.0 % [facility] Hematocrit (Bld) [Volume fraction] 41.8 % 36.0 - 46.0 % [facility] Hemoglobin (Bld) [Mass/Vol] 13.1 g/dL 11.5 - 15.5 g/dL [facility] MCH (RBC) [Entitic mass] 29.3 pg 26.0 - 34.0 pg [facility] MCHC (RBC) [Mass/Vol] 31.3 g/dL 30.5 - 36.0 g/dL [facility] MCV (RBC) [Entitic vol] 93.5 fL 80.0 - 100.0 fL [facility] Nucleated RBC (Bld) [#/Vol] <0.01 k/uL [facility] Platelet mean volume (Bld) [Entitic vol] 10.6 fL 9.0 - 12.7 fL [facility] Platelets (Bld) [#/Vol] 346 10*3/uL 150 - 400 k/uL [facility] RBC (Bld) [#/Vol] 4.47 10*6/uL 3.90 - 5.2 0 m/uL [facility] WBC (Bld) [#/Vol] 9.77 10*3/uL 3.70 - 11.00 k/uL [facility] Comprehensive metabolic 2000 panelon 07-21-2022 Albumin [Mass/Vol] 4.2 g/dL 3.9 - 4.9 g/dL [facility] ALP [Catalytic activity/Vol] 61 U/L 34 - 123 U/L [facility] ALT [Catalytic activity/Vol] 12 U/L 7 - 38 U/L [facility] Anion gap [Moles/Vol] 8 mmol/L Low 9 - 18 mmol/L [facility] AST [Catalytic activity/Vol] 15 U/L 13 - 35 U/L [facility] Bilirubin [Mass/Vol] 0.6 mg/dL 0.2 - 1 .3 mg/dL [facility] Calcium [Mass/Vol] 9.6 mg/dL 8.5 - 10. 2 mg/dL [facility] Chloride [Moles/Vol] 106 mmol/L High 97 - 10 5 mmol/L [facility] CO2 [Moles/Vol] 28 mmol/L 22 - 30 mmol/L [facility] Creatinine [Mass/Vol] 0.75 mg/dL 0.58 - 0.96 mg/dL [facility] Estimated Glomerular Filtration Rate 83 mL/min/1.73m >=60 mL/min/1.73 m [facility] Glucose [Mass/Vol] 68 mg/dL Low 74 - 99 mg/dL [facility] Potassium [Moles/Vol] 4.3 mmol/L 3.7 - 5.1 mmol/L [facility] Protein [Mass/Vol] 7.0 g/dL 6.3 - 8.0 g/dL [facility] Sodium [Moles/Vol] 142 mmol/L 136 - 144 mmol/L [facility] Urea nitrogen [Mass/Vol] 20 mg/dL 7 - 21 mg/dL [facility] HbA1c (Bld)on 07-21-2022 Average glucose Estimated from glycated hemoglobin (Bld) [Mass/Vol] 117 mg/dL [facility] HbA1c (Bld) [Mass fraction] 5.7 % High 4.3 - 5.6 % [facility] Lipid 1996 panelon Cholesterol [Mass/Vol] 220 mg/dL High <200 mg/dL [facility] Cholesterol in HDL [Mass/Vol] 46 mg/dL >39 mg/dL [facility] Cholesterol in LDL [Mass/Vol] 137 mg/dL High <100 mg/dL [facility] Cholesterol in LDL/Cholesterol in HDL [Mass ratio] 2.98 {ratio} High <2.54 [facility] Cholesterol in VLDL [Mass/Vol] 37 mg/dL High <30 mg/dL [facility] Cholesterol non HDL [Mass/Vol] 174 mg/dL High <130 mg/dL [facility] Cholesterol.total/Chol esterol in HDL [Mass ratio] 4.78 {ratio} <5.10 [facility] Fasting Time 4 hrs [facility] Triglyceride [Mass/Vol] 184 mg/dL High <150 mg/dL [facility] T3 [facility] 07-21-2022 T3 [Mass/Vol] 75 ng/dL Low 79 - 165 ng/dL [facility] T4 FREE/FREE THYROXon 2022 Free T4 [Mass/Vol] 1.6 ng/dL 0.9 - 1.7 ng/dL [facility] TSH [facility] 07-21-2022 TSH Qn 1.880 m[IU]/L 0.270 - 4.200 mIU/L [facility] VITAMIN B12 BLOODon 07-22-19 Cobalamin (Vitamin B12) [Mass/Vol] 246 pg/mL 232 - 1,245 pg/mL [facility] ALGN ALMOND IGEon 05-23-2022 [place] IgE Qn (S) <0.35 KU/L [facility] ALGN CASHEW NUT IGEon 2022 [place] nut IgE Qn (S) <0.35 KU/L [facility] ALGN GLUTEN IGEon 05-23-2022 Gluten IgE Qn (S) <0.35 kU/l [facility] ALGN PEANUT IGEon 05-23-2022 Peanut IgE Qn (S) <0.35 kU/l [facility] ALGN PECAN NUT IGEon 023 Pecan or [place] Nut IgE Qn (S) <0.35 kU/l [facility] ALGN WHEAT IGEon 05-23-2022 Wheat IgE Qn (S) <0.35 kU/l [facility] [place] IgE Qn (S)on 05-23-19 [place] IgE RAST class (S) Class 0 Class 0 [facility] Cashew nut IgE Qn (S)on 05-14 [place] nut IgE RAST class (S) Class 0 Class 0 [facility] Comprehensive metabolic 2000 panelon 05-23-2022 Albumin [Mass/Vol] 4.4 g/dL 3.9 - 4.9 g/dL [facility] ALP [Catalytic activity/Vol] 65 U/L 34 - 123 U/L [facility] ALT [Catalytic activity/Vol] 12 U/L 7 - 38 U/L [facility] Anion gap [Moles/Vol] 12 mmol/L 9 - 18 mmol/L [facility] AST [Catalytic activity/Vol] 25 U/L 13 - 35 U/L [facility] Bilirubin [Mass/Vol] 0.8 mg/dL 0.2 - 1 .3 mg/dL [facility] Calcium [Mass/Vol] 9.9 mg/dL 8.5 - 10. 2 mg/dL [facility] Chloride [Moles/Vol] 101 mmol/L 97 - 10 5 mmol/L [facility] CO2 [Moles/Vol] 25 mmol/L 22 - 30 mmol/L [facility] Creatinine [Mass/Vol] 0.90 mg/dL 0.58 - 0.96 mg/dL [facility] Estimated Glomerular Filtration Rate 67 mL/min/1.73m >=60 mL/min/1.73 m [facility] Glucose [Mass/Vol] 73 mg/dL Low 74 - 99 mg/dL [facility] Potassium [Moles/Vol] 4.7 mmol/L 3.7 - 5.1 mmol/L [facility] Protein [Mass/Vol] 7.6 g/dL 6.3 - 8.0 g/dL [facility] Sodium [Moles/Vol] 138 mmol/L 136 - 144 mmol/L [facility] Urea nitrogen [Mass/Vol] 27 mg/dL High 7 - 21 mg/dL [facility] Gluten IgE Qn (S)on 05-23-19 Gluten IgE RAST class (S) Class 0 Class 0 [facility] Peanut IgE Qn (S)on 05-23-19 Peanut IgE RAST class (S) Class 0 Class 0 [facility] Pecan or [place] Nut IgE Qn (S)on 05-23-2022 [place] Nut IgE RAST class (S) Class 0 Class 0 [facility] URINE CULTUREon 05-23-2022 Bacteria identified Cx Nom (U) No growth (<1,000 CFU/ml) [facility] Urinalysis complete panel (U )on 05-23-2022 Bilirubin Ql (U) Negative Negative [facility] Clarity (Unsp spec) Clear Clear [facility] Color (U) Light Yellow Yellow [facility] Epithelial cells LM.HPF (Urine sed) [#/Area] Few [facility] Glucose Test strip (U) [Mass/Vol] Negative Trace, Negative [facility] Hemoglobin Ql (U) Negative Negative, Trace [facility] Hyaline casts (Urine sed) [#/Area] 1-3 /LPF Abnormal 0 /LPF [facility] Ketones Ql (U) Negative Trace, Negative [facility] Leukocyte esterase Test strip Ql (U) Negative Negative, 25 Cruz/mL [facility] Nitrite Ql (U) Negative Negative [facility] pH (U) 6.5 [pH] 5.0 - 8.0 [facility] Protein (U) [Mass/Vol] 1+ Abnormal Trace , Negative [facility] RBC LM.HPF (Urine sed) [#/Area] 0-3 /HPF 0-3 /HPF [facility] Specific gravity (U) [Rel density] 1.023 1.005 - 1.030 [facility] Urobilinogen Ql (U) Negative Negative [facility] WBC LM.HPF (Urine sed) [#/Area] 0-5 /HPF 0-5 /HPF [facility] Wheat IgE Qn (S)on Wheat IgE RAST class (S) Class 0 Class 0 [facility] CBC W Auto Differential pane l (Bld)on 05-22-2022 Basophils (Bld) [#/Vol] 0.12 10*3/uL High <0.11 k/uL [facility] Basophils/100 WBC (Bld) 1.4 % [facility] Differential cell count method Nom (Bld) Auto [facility] Eosinophils (Bld) [#/Vol] 0.26 10*3/uL <0.46 k/uL [facility] Eosinophils/100 WBC (Bld) 3.0 % [facility] Erythrocyte distribution width (RBC) [Ratio] 14.6 % 11.5 - 15.0 % [facility] Hematocrit (Bld) [Volume fraction] 44.9 % 36.0 - 46.0 % [facility] Hemoglobin (Bld) [Mass/Vol] 14.2 g/dL 11.5 - 15.5 g/dL [facility] Immature granulocytes (Bld) [#/Vol] 0.03 10*3/uL <0.10 k/uL [facility] Immature granulocytes/100 WBC (Bld) 0.3 % [facility] Lymphocytes (Bld) [#/Vol] 3.76 10*3/uL 1.00 - 4.00 k/uL [facility] Lymphocytes/100 WBC (Bld) 42.8 % [facility] MCH (RBC) [Entitic mass] 29.4 pg 26.0 - 34.0 pg [facility] MCHC (RBC) [Mass/Vol] 31.6 g/dL 30.5 - 36.0 g/dL [facility] MCV (RBC) [Entitic vol] 93.0 fL 80.0 - 100.0 fL [facility] Monocytes (Bld) [#/Vol] 0.82 10*3/uL <0.87 k/uL [facility] Monocytes/100 WBC (Bld) 9.3 % [facility] Neutrophils (Bld) [#/Vol] 3.80 10*3/uL 1.45 - 7.50 k/uL [facility] Neutrophils/100 WBC (Bld) 43.2 % [facility] Nucleated RBC (Bld) [#/Vol] <0.01 k/uL [facility] Nucleated RBC/100 WBC (Bld) [Ratio] 0.0 /100 WBC [facility] Platelet mean volume (Bld) [Entitic vol] 10.8 fL 9.0 - 12.7 fL [facility] Platelets (Bld) [#/Vol] 365 10*3/uL 150 - 400 k/uL [facility] RBC (Bld) [#/Vol] 4.83 10*6/uL 3.90 - 5.2 0 m/uL [facility] WBC (Bld) [#/Vol] 8.79 10*3/uL 3.70 - 11.00 k/uL [facility] No Panel Informationon 12-[address] [facility] [address] ABD/PEL W IVCONon 022 [facility] No Panel InformationOrdered By: Ccf Provider on 09-02-2021 [facility] XR Elbow - left AP and Later jones 09-02-2021 IMPRESSION: NO ACUTE FINDINGS. 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 Apprentice: KEYANA Transcribe Date/Time: Sep 02 2021 7:52A Dictated by : MALCOM GELLER MD This examination was interpreted and the report reviewed and electronically signed by: MALCOM GELLER MD on Sep 02 2021 7:53AM EST [facility]_DO_NOT_ USE_DIVISIO N OF RADIOLOGY * * *Final Report* * * DATE OF EXAM: Sep 01 2021 4:43PM WOX 5322 - XR ELBOW 2V AP/LAT LT / PROCEDURE REASON: multiple diagnoses * * * * Physician Interpretation * * * * HISTORY: left shoulder and left elbow pain. Shoulder pain has been chronic for many years, per patient. Elbow pain is acute.. Chronic left shoulder pain Chronic left shoulder pain Left elbow pain . TECHNIQUE: XR ELBOW 2V AP/LAT LT Laterality: LEFT Number of different views (projections): 2 COMPARISON: None RESULT: There is no evidence of joint effusion. No fracture or dislocation is identified. Joint spaces appear preserved. - [facility]_DO_NOT_ USE_DIVISIO N OF RADIOLOGY Provider, [facility] - 09/02/2021 * * *Final Report* * * DATE OF EXAM: Sep 01 2021 4:43PM WOX 5322 - XR ELBOW 2V AP/LAT LT / PROCEDURE REASON: multiple diagnoses * * * * Physician Interpretation * * * * HISTORY: left shoulder and left elbow pain. Shoulder pain has been chronic for many years, per patient. Elbow pain is acute.. Chronic left shoulder pain Chronic left shoulder pain Left elbow pain . TECHNIQUE: XR ELBOW 2V AP/LAT LT Laterality: LEFT Number of different views (projections): 2 COMPARISON: None RESULT: There is no evidence of joint effusion. No fracture or dislocation is identified. Joint spaces appear preserved. - IMPRESSION IMPRESSION: NO ACUTE FINDINGS. 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 Transcribe Date/Time: Sep 02 2021 7:52A Dictated by : MALCOM GELLER MD This examination was interpreted and the report reviewed and electronically signed by: MALCOM GELLER MD on Sep 02 2021 7:53AM EST [facility] XR Shoulder - left 2 Viewson 09-02-2021 IMPRESSION: NO ACUTE FINDINGS. 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 Transcribe Date/Time: Sep 02 2021 7:53A Dictated by : MALCOM GELLER MD This examination was interpreted and the report reviewed and electronically signed by: MALCOM GELLER MD on Sep 02 2021 7:53AM EST [facility]_DO_NOT_ USE_DIVISIO N OF RADIOLOGY * * *Final Report* * * DATE OF EXAM: Sep 01 2021 4:43PM WOX 5254 - XR SHOULDER 2V AP/TRUE AP LT / PROCEDURE REASON: multiple diagnoses * * * * Physician Interpretation * * * * HISTORY: left shoulder and left elbow pain. Shoulder pain has been chronic for many years, per patient. Elbow pain is acute.. Chronic left shoulder pain Chronic left shoulder pain Left elbow pain . TECHNIQUE: XR SHOULDER 2V AP/TRUE AP LT Laterality: LEFT Number of different views (projections): 2 COMPARISON: None RESULT: There are tiny areas of calcification in LEFT axillary region. There is no evidence of fracture or dislocation. The subacromial space is preserved. The glenohumeral joint space is maintained. - ZZZ_DO_NOT_ USE_DIVISIO N OF RADIOLOGY Provider, [facility] - 09/02/2021 * * *Final Report* * * DATE OF EXAM: Sep 01 2021 4:43PM WOX 5254 - XR SHOULDER 2V AP/TRUE AP LT / PROCEDURE REASON: multiple diagnoses * * * * Physician Interpretation * * * * HISTORY: left shoulder and left elbow pain. Shoulder pain has been chronic for many years, per patient. Elbow pain is acute.. Chronic left shoulder pain Chronic left shoulder pain Left elbow pain . TECHNIQUE: XR SHOULDER 2V AP/TRUE AP LT Laterality: LEFT Number of different views (projections): 2 COMPARISON: None RESULT: There are tiny areas of calcification in LEFT axillary region. There is no evidence of fracture or dislocation. The subacromial space is preserved. The glenohumeral joint space is maintained. - IMPRESSION IMPRESSION: NO ACUTE FINDINGS. 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 Apprentice: PSCMykel Transcribe Date/Time: Sep 02 2021 7:53A Dictated by : MALCOM GELLER MD This examination was interpreted and the report reviewed and electronically signed by: MALCOM GELLER MD on Sep 02 2021 7:53AM EST [facility] Panel Informationon 09-01 Radiology Study observation (narrative) [facility] KARTHIK SCREENINGon 08-15-2021 [facility] XR Ankle - right AP and Late ral and obliqueon 01-05-2021 IMPRESSION: No radiographic evidence of acute osseous injury. Plantar calcaneal enthesophyte. 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 Apprentice: KEYANA Transcribe Date/Time: Jan 05 2021 10:38A Dictated by : ZEKE TIRADO MD This examination was interpreted and the report reviewed and electronically signed by: ZEKE TIRADO MD on Jan 05 2021 10:39AM EST DIVISION OF RADIOLOGY * * *Final Report* * * DATE OF EXAM: Jan 05 2021 10:35AM WOX 5297 - XR ANKLE 3V AP/LAT/OBL RT / PROCEDURE REASON: multiple diagnoses * * * * Physician Interpretation * * * * CLINICAL INDICATION: Ankle pain TECHNIQUE: 3 view radiographic study of the right ankle COMPARISON: None FINDINGS: No fracture or dislocation identified. Miniscule plantar calcaneal enthesophyte. DIVISION OF RADIOLOGY Provider, [facility] Skyler Warren - 01/05/2021 * * *Final Report* * * DATE OF EXAM: Jan 05 2021 10:35AM WOX 5297 - XR ANKLE 3V AP/LAT/OBL RT / PROCEDURE REASON: multiple diagnoses * * * * Physician Interpretation * * * * CLINICAL INDICATION: Ankle pain TECHNIQUE: 3 view radiographic study of the right ankle COMPARISON: None FINDINGS: No fracture or dislocation identified. Miniscule plantar calcaneal enthesophyte. IMPRESSION IMPRESSION: No radiographic evidence of acute osseous injury. Plantar calcaneal enthesophyte. 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 Apprentice[facility] Transcribe Date/Time: Jan 05 2021 10:38A Dictated by : ZEKE TIRADO MD This examination was interpreted and the report reviewed and electronically signed by: ZEKE TIRADO MD on Jan 05 2021 10:39AM EST [facility] Radiology Study observation (narrative) [facility] XR Ankle - right AP and Late ral and obliqueOrdered By: Ccf Provider on 01-05-2021 [facility] XR Toes - left 3 Viewson IMPRESSION: Refer to the result. 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 Apprentice: PSCMykel Transcribe Date/Time: Aug 02 2020 12:20P Dictated by : BUCK MARRUFO MD This examination was interpreted and the report reviewed and electronically signed by: BUCK MARRUFO MD on Aug 02 2020 12:25PM [facility] DIVISION OF RADIOLOGY * * *Final Report* * * DATE OF EXAM: Aug 02 2020 12:14PM WOX 5268 - XR TOE 3V AP/LAT/OBL LT / PROCEDURE REASON: Great toe pain, left * * * * Physician Interpretation * * * * EXAMINATION: XR TOE 3V AP/LAT/OBL LT CLINICAL HISTORY: pt states woke up . or Sunday with pain in left grt. toe denies inj Great toe pain, left Technique: XR TOE 3V AP/LAT/OBL LT -- LEFT foot 1st digit with 3 views on 3 images Comparison: 02/25/2020 RESULT: No acute fracture or dislocation. There is narrowing of the 1st metatarsophalangeal joint and interphalangeal joint. No bony erosive process. No unexpected radiopaque foreign body. Postsurgical changes of a prior LEFT bunionectomy with placement of orthopedic screws in the 1st metatarsal. Incidental note is made of stable fusion of the 2nd proximal interphalangeal joint. DIVISION OF RADIOLOGY Provider, [facility] - 08/02/2020 * * *Final Report* * * DATE OF EXAM: Aug 02 2020 12:14PM WOX [id number] - XR TOE 3V AP/LAT/OBL LT / PROCEDURE REASON: Great toe pain, left * * * * Physician Interpretation * * * * EXAMINATION: XR TOE 3V AP/LAT/OBL LT CLINICAL HISTORY: pt states woke up . or Sunday with pain in left grt. toe denies inj Great toe pain, left Technique: XR TOE 3V AP/LAT/OBL LT -- LEFT foot 1st digit with 3 views on 3 images Comparison: 02/25/2020 RESULT: No acute fracture or dislocation. There is narrowing of the 1st metatarsophalangeal joint and interphalangeal joint. No bony erosive process. No unexpected radiopaque foreign body. Postsurgical changes of a prior LEFT bunionectomy with placement of orthopedic screws in the 1st metatarsal. Incidental note is made of stable fusion of the 2nd proximal interphalangeal joint. IMPRESSION IMPRESSION: Refer to the result. 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 Apprentice: KEYANA Transcribe Date/Time: Aug 02 2020 12:20P Dictated by : BUCK MARRUFO MD This examination was interpreted and the report reviewed and electronically signed by: BUCK MARRUFO MD on Aug 02 2020 12:25PM EST [facility] Radiology Study observation (narrative) [facility] XR Toes - left 3 ViewsOrdere d By: Ccf Provider on 08-02-2020 [facility] XR CHEST 2V FRONTAL/LATon XR CHEST 2V FRONTAL/LAT Final Report DATE OF EXAM: May 26 2020 9:34AM [id number] [id number] - XR CHEST 2V FRONTAL/LAT / PROCEDURE REASON: Post-operative / post-procedure assessment, asymptomatic Physician Interpretation EXAMINATION: CHEST RADIOGRAPH (2 VIEW FRONTAL & LATERAL) CLINICAL HISTORY: Post-operative / post-procedure assessment, asymptomatic MQ: [id number] EXAM DATE/TIME: 05/26/2020 9:34 AM COMPARISON: Chest radiograph 05/03/2020 RESULT: Lines, tubes, and devices: None. Lungs and pleura: No consolidation. No pneumothorax. No pleural effusion. Cardiomediastinal silhouette: Cardiomegaly. Bones and soft tissues: Unremarkable. IMPRESSION: No acute radiographic abnormality. 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 Apprentice: [facility] Transcribe Date/Time: May 26 2020 9:36A Dictated by : SALLIE BUTTS MD This examination was interpreted and the report reviewed and electronically signed by: SALLIE BUTTS MD on May 26 2020 9:39AM EST Normal [facility] No Panel Informationon 04-27 [facility] AIRBRUSH ARTIST - Office Visiton 02-11 AIRBRUSH ARTIST - Office Visit Chief Complaint Patient here for pessary check. It is causing her discomfort. 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 Kameron placed a Gehrung pessary about 2 weeks ago. pt had some intestinal upset and when having a BM the pessary was dislodged. When she replaced it it was uncomfortable. Review of Systems Constitutional: no fever, no chills, no recent weight gain, no recent weight loss and no fatigue. Eyes: no eye pain, no vision problems and no dryness of the eyes. ENT: no hearing loss, no nosebleeds and no sinus congestion. Cardiovascular: no chest pain, no palpitations and no orthopnea. Respiratory: no shortness of breath, no cough and no wheezing. Gastrointestinal: no abdominal pain, no constipation, no nausea, no diarrhea and no vomiting. Genitourinary: no dysuria, no urinary incontinence, no vaginal dryness, no vaginal itching, no dyspareunia, no pelvic pain, no dysmenorrhea, no sexual problems, no change in urinary frequency, no vaginal discharge, no unexplained vaginal bleeding and no lesion/sore. Musculoskeletal: no back pain, no joint swelling and no leg edema. Integumentary: no rashes, no skin lesions, no nipple discharge, no breast pain and no breast lump. Neurological: no headache, no numbness and no dizziness. Psychiatric: no sleep disturbances, no anxiety and no depression. Endocrine: no hot flashes, no loss of hair and no hirsutism. Hematologic/Lymphatic: no swollen glands, no tendency for easy bleeding and no tendency for easy bruising. 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.01) (N81.11) Somatic dysfunction (739.9) (M99.09) Uterine prolapse (618.1) (N81.4) Visit for screening mammogram (V76.12) (Z12.31) Vitamin D deficiency (268.9) (E55.9) Surgical History History of Foot surgery History of Foot surgery History of Tubal ligation Family History Family history of cardiac disorder (V17.49) (Z82.49) Family history of hypertension (V17.49) (Z82.49) Family history of cardiac disorder (V17.49) (Z82.49) Family history of hypertension (V17.49) (Z82.49) Family history of malignant neoplasm of breast (V16.3) (Z80.3) Family history of cardiac disorder (V17.49) (Z82.49) Family history of cardiac disorder (V17.49) (Z82.49) Social History Caffeine use (V49.89) (Z78.9) Coffee Exercises occasionally (V49.89) (Z78.9) Feels safe at home Former smoker (V15.82) (Z87.891) No alcohol use No illicit drug use Non-smoker (V49.89) (Z78.9) Not currently sexually active Pets/Animals: Dog Allergies codeine Dizziness; Recorded By: Louisa Rondon; 07/20/2019 2:07:48 PM Sulfa Drugs Headache; Recorded By: Louisa Rondon; 07/20/2019 2:07:48 PM amlodipine Recorded By: Louisa Rondon; 07/20/2019 2:07:48 PM Additional reactions - Other(See Desc) Augmentin Recorded By: Sloane Feng; 03/06/2019 10:30:31 AM Stomach cramping and diarrhea Current Meds Levothyroxine Sodium 75 MCG Oral Tablet; TAKE 1 TABLET DAILY Requested for: 28Jan2020; Last Rx:22Jan2020 Ordered Rx By: Rafael Frank III; Dispense: 90 Days ; #:90 Tablet; Refill: 1;For: Hypothyroidism; ZAK = N; Print Rx; Last Updated By: Bety Iverson; 01/28/2020 1:21:26 PM Aspirin Adult Low Dose 81 MG Oral Tablet Delayed Release; Therapy: (Recorded:[id number]) to Recorded Dispense: 0 Days ; #: Sufficient; Refill: 0; ZAK = N; Record; Last Updated By: Bety Iverson; 01/28/2020 1:21:26 PM Fontanez Concentrate Oral Concentrate; Therapy: (Recorded:[id number]) to Recorded Dispense: 0 Days ; #: Sufficient; Refill: 0; ZAK = N; Record; Last Updated By: Bety Iverson; 01/28/2020 1:21:27 PM Vitamin D3 25 MCG (1000 UT) Oral Tablet; TAKE 1 TABLET DAILY; Therapy: (Recorded:[id number]) to Recorded Dispense: 0 Days ; #: Sufficient Tablet; Refill: 0; ZAK = N; Record; Last Updated By: Bety Iverson; 01/28/2020 1:21:27 PM Vitals Vital Signs Recorded: 42Ufe1599 10:13AM Nshmrzpb497 Xxgehziqq39 Balqdv479 lb BMI Vhhwexghfy46.9 BSA Calculated1.92 Physical Exam Constitutional: Alert and in no acute distress. Well developed, well nourished. Genitourinary: External genitalia: Normal. Palpation of lymph nodes in groin: No inguinal lymphadenopathy. Bartholin's Urethral and Skenes Glands: Normal. Urethra: Normal. Bladder: Normal on palpation. Vagina: Normal. no erosions or lacerations, atrophy. Cervix: Normal. cervix visualized at the introitus. Uterus: Normal. reduced support. Right Adnexa/parametria: Normal. Left Adnexa/parametria: Normal. Inspection of Perianal Area: Normal. Psychiatric: Alert and oriented x 3. Affect normal to patient baseline. Mood: Appropriate. Diagnoses/Problems Midline cystocele (618.01) (N81.11) Uterine prolapse (618.1) (N81.4) Provider Impressions Assessment: as above Plan: 1. exam 2. pessary removed, cleaned and replaced. pt comfortable after reinsertion. 3. she is trying to delay surgery until the beginning of the new year. at this time she is comfortable having the pessary in. she will see Dr. Melo after the new year Signatures Electronically signed by : Mane Solis DO; Feb 25 2020 8:52PM EST (Author) Normal Touchworks Cult, Urineon 02-04-2020 Bacteria identified Cx Nom (U) PATIENT: SANDRA SCHMITZ LOCATION: [facility]#: [id number] : 47 AGE: SEX: F ORDERED BY: ISAEL MELO: URINE COLLECTED: 02/04/20 16:53ANTIBIOTICS AT RASHAAD.: RECEIVED : 02/05/20 00:18SITE: R E S U L T S URINE CULTURE,BACTERIAL FINAL 02/05/20 18:51 NO SIGNIFICANT GROWTH. [facility] Work Phone: AIRBRUSH ARTIST - Office Visiton 01-13 AIRBRUSH ARTIST - Office Visit Chief Complaint recheck pessary, refer from DR. Doll History of Present Rwdqpaj21 y.o. W and 1 ectopic with prior tubal ligation in the past postmenopausal since age 56 no HRT here referral from Dr. Solis for uterine prolapse for years using pessary for years. She says within last few months giving her much more trouble. Pessary was changed recently to a bigger one but she still feels tissue coming out. She has frequency of urination and feel prolapse coming out despite the pessary. 2 UTIs this year some vaginal bleeding. Not sexually active for years. Patient was recommended to have Le fort's procedure by Dr. Solis. Domestic Violence Screen: Does not feel threatened or abused physically, emotionally or sexually. Do you feel UNSAFE? The patient feels safe in the home. Depression/Suicide Screening: During the past 2 weeks, the patient has not felt down, depressed or hopeless. During the past 2 weeks, the patient has not felt little interest or pleasure in doing things. She has no thoughts of harming self. She has not had thoughts of harming others. Review of Systems Constitutional: no fever, no chills, no recent weight gain, no recent weight loss and no fatigue. Eyes: no eye pain, no vision problems and no dryness of the eyes. ENT: no hearing loss, no nosebleeds and no sinus congestion. Cardiovascular: no chest pain, no palpitations and no orthopnea. Respiratory: no shortness of breath, no cough and no wheezing. Gastrointestinal: no abdominal pain, no constipation, no nausea, no diarrhea and no vomiting. Genitourinary: dysuria, urinary incontinence, urinary frequency, unexplained vaginal bleeding and RAUL, nocturia 3 times, but no vaginal dryness, no vaginal itching, no dyspareunia, no pelvic pain and no vulvar/vaginal pain. Musculoskeletal: no back pain, no joint swelling and no leg edema. Integumentary: no rashes, no skin lesions, no nipple discharge, no breast pain and no breast lump. Neurological: no headache, no numbness and no dizziness. Psychiatric: no sleep disturbances, no anxiety and no depression. Endocrine: no hot flashes, no loss of hair and no hirsutism. Hematologic/Lymphatic: no swollen glands, no tendency for easy bleeding and no tendency for easy bruising. 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) Hyperlipidemia (272.4) (E78.5) Hypothyroidism (244.9) (E03.9) Midline cystocele (618.01) (N81.11) Somatic dysfunction (739.9) (M99.09) Uterine prolapse (618.1) (N81.4) Visit for screening mammogram (V76.12) (Z12.31) Vitamin D deficiency (268.9) (E55.9) Surgical History History of Foot surgery History of Foot surgery History of Tubal ligation Family History Family history of cardiac disorder (V17.49) (Z82.49) Family history of hypertension (V17.49) (Z82.49) Family history of cardiac disorder (V17.49) (Z82.49) Family history of hypertension (V17.49) (Z82.49) Family history of malignant neoplasm of breast (V16.3) (Z80.3) Family history of cardiac disorder (V17.49) (Z82.49) Family history of cardiac disorder (V17.49) (Z82.49) Social History Caffeine use (V49.89) (Z78.9) Coffee Exercises occasionally (V49.89) (Z78.9) Feels safe at home Former smoker (V15.82) (Z87.891) No alcohol use No illicit drug use Non-smoker (V49.89) (Z78.9) Not currently sexually active Pets/Animals: Dog Allergies codeine Dizziness; Recorded By: Louisa Rondon; 07/20/2019 2:07:48 PM Sulfa Drugs Headache; Recorded By: Louisa Rondon; 07/20/2019 2:07:48 PM amlodipine Recorded By: Louisa Rondon; 07/20/2019 2:07:48 PM Additional reactions - Other(See Desc) Augmentin Recorded By: Sloane Feng; 03/06/2019 10:30:31 AM Stomach cramping and diarrhea Current Meds Levothyroxine Sodium 75 MCG Oral Tablet; TAKE 1 TABLET DAILY Requested for: [id number]; Last Rx:[id number] Ordered Rx By: Rafael Frank III; Dispense: 90 Days ; #:90 Tablet; Refill: 1;For: Hypothyroidism; ZAK = N; Print Rx; Last Updated By: Bety Iverson; 01/28/2020 1:21:26 PM Aspirin Adult Low Dose 81 MG Oral Tablet Delayed Release; Therapy: (Recorded:[id number]) to Recorded Dispense: 0 Days ; #: Sufficient; Refill: 0; ZAK = N; Record; Last Updated By: Bety Iverson; 01/28/2020 1:21:26 PM Fontanez Concentrate Oral Concentrate; Therapy: (Recorded:[id number]) to Recorded Dispense: 0 Days ; #: Sufficient; Refill: 0; ZAK = N; Record; Last Updated By: Bety Iverson; 01/28/2020 1:21:27 PM Vitamin D3 25 MCG (1000 UT) Oral Tablet; TAKE 1 TABLET DAILY; Therapy: (Recorded:37Pfw5632) to Recorded Dispense: 0 Days ; #: Sufficient Tablet; Refill: 0; ZAK = N; Record; Last Updated By: Bety Iverson; 01/28/2020 1:21:27 PM Vitals Vital Signs Recorded: 48Khq0703 02:16PM Elqjatku463 Pzkwpesot53 Height5 ft 3 in Lknoxf566 lb BMI Ulfkptdzoq54.43 BSA Calculated1.93 LMPyears ago Gravida2 Para1 Physical Exam Constitutional: Alert and in no acute distress. Well developed, well nourished. Obese. Head and Face: Head and face: Normal. Eyes: Normal external exam - nonicteric sclera, extraocular movements intact (EOMI) and no ptosis. Ears, Nose, Mouth, and Throat: External inspection of ears and nose: Normal. Neck: No neck asymmetry. Supple. Thyroid not enlarged and there were no palpable thyroid nodules. Cardiovascular: Heart rate and rhythm were normal, normal S1 and S2, no gallops, and no murmurs. Pulmonary: No respiratory distress. Clear bilateral breath sounds. Chest: Breasts: Normal appearance, no nipple discharge and no skin changes. Palpation of breasts and axillae: No palpable mass and no axillary lymphadenopathy. Abdomen: Soft nontender; no abdominal mass palpated. No organomegaly. No hernias. Genitourinary: External genitalia: Normal. Palpation of lymph nodes in groin: No inguinal lymphadenopathy. Bartholin's Urethral and Skenes Glands: Normal. Urethra: Normal. Bladder: Normal on palpation. Vagina: Normal. Cervix: Normal. Uterus: Normal. Small. Right Adnexa/parametria: Normal. Not felt no mass. Left Adnexa/parametria: Normal. Not felt no mass. Inspection of Perianal Area: Normal. POP-Q: Stage: 4. cervix at or out of hymen. Musculoskeletal: No joint swelling seen, normal movements of all extremities. Skin: Normal skin color and pigmentation, normal skin turgor, and no rash. Neurologic: non-focal. Grossly intact. Psychiatric: Alert and oriented x 3. Affect normal to patient baseline. Mood: Appropriate. Diagnoses/Problems Uterine prolapse (618.1) (N81.4) Dysuria (788.1) (R30.0) Orders Cult, Urine; Status:Active; Requested for:[id number]; Perform:Lab Services - Lab To Draw (Non-Blood Test); Due:94Kug0926;Ordered; For:Dysuria; Ordered By:Darren Melo; Urinalysis; Status:Active; Requested for:[id number]; Perform:Lab Services - Lab To Draw (Non-Blood Test); Due:99Tfr9084;Ordered; For:Dysuria; Ordered By:Darren Melo; Provider Impressions Utero vaginal prolapse stage 3-4. Ring pessary removed cleaned. Exam shows no ulceration. No active infection. Cervix at interoitus in supine position. We discussed options : New pessary such as Gehrung, Le fort's procedure or pelvic reconstructive surgery including TVH, possible BSO, Uterosacral ligament fixation, AANDP repair. I discussed details of each, risks pros and cons and expectations in the future. A urine CANDS sent. 45 mins with > 50 % counseling and coordinating care. She gave a clean catch for CANDS. She wanted to try a different pessary and I fitted a large Gehrung pessary for now. Sollow up next week. Patient Discussion/Summary Utero vaginal prolapse stage 3-4. Ring pessary removed cleaned. Exam shows no ulceration. No active infection. Cervix at interoitus in supine position. We discussed options : New pessary such as Gehrung, Le fort's procedure or pelvic reconstructive surgery including TVH, possible BSO, Uterosacral ligament fixation, AANDP repair. I discussed details of each, risks pros and cons and expectations in the future. A urine CANDS sent. A new pessary Gehrung inserted. Follow up in 1 week. The was counseled regarding instructions for management, prognosis, patient and family education, impressions and risks and benefits of treatment options. Signatures Electronically signed by : Darren Melo MD; Feb 04 2020 5:40PM EST (Author) Normal [facility] UA MICROSCOPICon 02-04-2020 BACTERIA 4+ /HPF Abnormal [place]/[facility] Comment on above: Performed By: #### L IPID #### [address] [address] RBC (Bld) [#/Vol] NONE Normal [facility]-5 [facility] Comment on above: Performed By: #### L IPID #### [address] [address] SQUAMOUS EPITH. CELLS 3 /HPF Normal [place] inson/Po [facility] Comment on above: Performed By: #### L IPID #### [address] [address] WBC 1 /HPF Normal 0-5 [place]/[facility] Comment on above: Performed By: #### L IPID #### [address] [address] URINALYSISon 02-04-2020 Appearance (U) Clear Normal CLEAR [place]/P o [facility] Comment on above: Performed By: #### U A #### [address] [address] Bilirubin (U) [Mass/Vol] Negative Normal NEGATIVE [place]/[facility] Comment on above: Performed By: #### U A #### [address] [address] BLOOD Negative Normal NEGATIVE [place]/[facility] Comment on above: Performed By: #### U A #### [address] [address] Color (U) Yellow Normal STRAW,YELLO W [place]/[facility] Comment on above: Performed By: #### U A #### [address] [address] Glucose [Mass/Vol] Negative Normal NEGATIVE [place] on/Po [facility] Comment on above: Performed By: #### U A #### [address] [address] Ketones Ql (U) Negative Normal NEGATIVE [place]/P [facility] Comment on above: Performed By: #### U A #### [address] [address] Leukocyte esterase Test strip Ql (U) MODERATE(2+) Abnormal NEGATIVE [place]/[facility] Comment on above: Performed By: #### U A #### [address] [address] Nitrite Ql (U) Negative Normal NEGATIVE [place]/P [facility] Comment on above: Performed By: #### U A #### [address] [address] pH (Bld) 6.0 Normal 5.0 - 8.0 [place]/[facility] Comment on above: Performed By: #### U A #### [address] [address] Protein (U) [Mass/Vol] Negative Normal NEGATIVE [place]/[facility] Comment on above: Performed By: #### U A #### [address] [address] Specific gravity (U) [Rel density] 1.011 Normal 1.005 - 1.035 [place]/[facility] Comment on above: Performed By: #### U A #### [address] [address] Urobilinogen Qn (U) <2.0 Normal 0.0 - 1.9 Robert son/[facility] Comment on above: Performed By: #### U A #### [address] [address] URINE CULTURE,BACTERIALon URINE CULTURE,BACTERIAL PATIENT: SANDRA SCHMITZ LOCATION: [facility]#: [id number] : 47 AGE: SEX: F ORDERED BY: DARREN MELO SOURCE: URINE COLLECTED: 02/04/20 16:53 ANTIBIOTICS AT RASHAAD.: RECEIVED : 02/05/20 00:18 SITE: R E Eileen U L T S URINE CULTURE,BACTERIAL FINAL 02/05/20 18:51 NO SIGNIFICANT GROWTH. Normal [place]/[facility] Comment on above: Performed By: #### L IPID #### [facility] [address] [place] [address] Urinalysison 02-04-2020 Appearance (U) Clear CLEAR [facility] [employer] Work Phone: Color (U) Yellow See Below [facility] [employer] Work Phone: Comment on above: Reference Range: STR AW,YELLOW Glucose Ql (U) Negative NEGATIVE [facility] [employer] Work Phone: Ketones Ql (U) Negative NEGATIVE [facility] [employer] Work Phone: Leukocyte esterase Test strip Ql (U) MODERATE(2+) Abnormal NEGATIVE [facility] [employer] Work Phone: pH (U) 6.0 [pH] 5.0 - 8.0 [facility] [employer] Work Phone: Protein (U) [Mass/Vol] Negative NEGATIVE [facility] [employer] Work Phone: RBC (U) [#/Vol] Negative NEGATIVE [facility] 1d4 Pty Phone: Specific gravity (U) [Rel density] 1.011 See Below [facility] 1d4 Pty Phone: Comment on above: Reference Range: 1.0 05 - 1.035 Urinalysis Negative NEGATIVE [facility] 1d4 Pty Phone: Urinalysis <2.0 0.0 - 1.9 [facility] [employer] Work Phone: Urinalysis, Microscopicon Bacteria LM.HPF (Urine sed) [#/Area] 4+ Abnormal [facility] [employer] Work Phone: RBC (Bld) [#/Vol] NONE 0-5 [employer] Work Phone: Urinalysis, Microscopic 1 {/HPF} 0-5 [facility] [employer] Work Phone: Urinalysis, Microscopic 3 {/HPF} [facility] [employer] Work Phone: AIRBRUSH ARTIST - Office Visiton 01-12 AIRBRUSH ARTIST - Office Visit Chief Complaint PT here for a PESSARY check from 10/21/2019 States she thinks she might have to change sizes. Vice President Global Digital Marketing Declined Bety Iverson CMA History of Present Illnessshe has been very uncomfortable for the last 2 weeks. the pessary has not been able to hold back the uterus and the cervix has been hanging out. she has had some spotting due to the friction of the cervix rubbing on her clothes. discussed options of treatment and she would like to talk to Dr. Melo about the [place] procedure Review of Systems Constitutional: no fever, no chills, no recent weight gain, no recent weight loss and no fatigue. Eyes: no eye pain, no vision problems and no dryness of the eyes. ENT: no hearing loss, no nosebleeds and no sinus congestion. Cardiovascular: no chest pain, no palpitations and no orthopnea. Respiratory: no shortness of breath, no cough and no wheezing. Gastrointestinal: no abdominal pain, no constipation, no nausea, no diarrhea and no vomiting. Genitourinary: no dysuria, no urinary incontinence, no vaginal dryness, no vaginal itching, no dyspareunia, no pelvic pain, no dysmenorrhea, no sexual problems, no change in urinary frequency, no vaginal discharge, no unexplained vaginal bleeding and no lesion/sore. Musculoskeletal: no back pain, no joint swelling and no leg edema. Integumentary: no rashes, no skin lesions, no nipple discharge, no breast pain and no breast lump. Neurological: no headache, no numbness and no dizziness. Psychiatric: no sleep disturbances, no anxiety and no depression. Endocrine: no hot flashes, no loss of hair and no hirsutism. Hematologic/Lymphatic: no swollen glands, no tendency for easy bleeding and no tendency for easy bruising. 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) Hyperlipidemia (272.4) (E78.5) Hypothyroidism (244.9) (E03.9) Midline cystocele (618.01) (N81.11) Somatic dysfunction (739.9) (M99.09) Uterine prolapse (618.1) (N81.4) Visit for screening mammogram (V76.12) (Z12.31) Vitamin D deficiency (268.9) (E55.9) Surgical History History of Foot surgery History of Foot surgery History of Tubal ligation Family History Family history of cardiac disorder (V17.49) (Z82.49) Family history of hypertension (V17.49) (Z82.49) Family history of cardiac disorder (V17.49) (Z82.49) Family history of hypertension (V17.49) (Z82.49) Family history of cardiac disorder (V17.49) (Z82.49) Family history of cardiac disorder (V17.49) (Z82.49) Social History Caffeine use (V49.89) (Z78.9) Coffee Feels safe at home Former smoker (V15.82) (Z87.891) No alcohol use No illicit drug use Non-smoker (V49.89) (Z78.9) Not currently sexually active Allergies codeine Dizziness; Recorded By: Louisa Rondon; 07/20/2019 2:07:48 PM Sulfa Drugs Headache; Recorded By: Louisa Rondon; 07/20/2019 2:07:48 PM amlodipine Recorded By: Louisa Rondon; 07/20/2019 2:07:48 PM Additional reactions - Other(See Desc) Augmentin Recorded By: Sloane Feng; 03/06/2019 10:30:31 AM Stomach cramping and diarrhea Current Meds Levothyroxine Sodium 75 MCG Oral Tablet; TAKE 1 TABLET DAILY Requested for: [id number]; Last Rx:[id number] Ordered Rx By: Rafael Frank III; Dispense: 90 Days ; #:90 Tablet; Refill: 1;For: Hypothyroidism; ZAK = N; Print Rx Aspirin Adult Low Dose 81 MG Oral Tablet Delayed Release; Therapy: (Recorded:28Jan2020) to Recorded Dispense: 0 Days ; #: Sufficient; Refill: 0; ZAK = N; Record; Last Updated By: Bety Iverson; 01/28/2020 1:21:26 PM Fontanez Concentrate Oral Concentrate; Therapy: (Recorded:28Jan2020) to Recorded Dispense: 0 Days ; #: Sufficient; Refill: 0; ZAK = N; Record; Last Updated By: Bety Iverson; 01/28/2020 1:21:27 PM Vitamin D3 25 MCG (1000 UT) Oral Tablet; TAKE 1 TABLET DAILY; Therapy: (Recorded:28Jan2020) to Recorded Dispense: 0 Days ; #: Sufficient Tablet; Refill: 0; ZAK = N; Record; Last Updated By: Bety Iverson; 01/28/2020 1:21:27 PM Vitals Vital Signs Recorded: 28Jan2020 01:21PM Zcbuxodu525 Rjyildyhe85 Height5 ft 3 in Liigac284 lb BMI Qevlfiemhf50.07 BSA Calculated1.93 Physical Exam Constitutional: Alert and in no acute distress. Well developed, well nourished. Genitourinary: External genitalia: Normal. Palpation of lymph nodes in groin: No inguinal lymphadenopathy. Bartholin's Urethral and Skenes Glands: Normal. Urethra: Normal. Bladder: Normal on palpation. Vagina: Normal. no erosions. Cervix: Normal. prolapses through the introitus. a Pap smear was not performed. Uterus: Normal. reduced support. Right Adnexa/parametria: Normal. Left Adnexa/parametria: Normal. Diagnoses/Problems Uterine prolapse (618.1) (N81.4) Orders Continue: Levothyroxine Sodium 75 MCG Oral Tablet; TAKE 1 TABLET DAILY Rx By: Rafael Frank III; Dispense: 90 Days ; #:90 Tablet; Refill: 1;For: Hypothyroidism; ZAK = N; Print Rx; Last Updated By: Bety Iverson; 01/28/2020 1:21:26 PM Tobacco Use Screening; Status:Complete; Done: 28Jan2020 Perform:Not Applicable;Ordered; For:SocHx: Non-smoker; Ordered By:Bety Iverson; Continue: Aspirin Adult Low Dose 81 MG Oral Tablet Delayed Release Dispense: 0 Days ; #: Sufficient; Refill: 0; ZAK = N; Record; Last Updated By: Bety Iverson; 01/28/2020 1:21:26 PM Continue: Fontanez Concentrate Oral Concentrate Dispense: 0 Days ; #: Sufficient; Refill: 0; ZAK = N; Record; Last Updated By: Bety Iverson; 01/28/2020 1:21:27 PM Continue: Vitamin D3 25 MCG (1000 UT) Oral Tablet; TAKE 1 TABLET DAILY Dispense: 0 Days ; #: Sufficient Tablet; Refill: 0; ZAK = N; Record; Last Updated By: Bety Iverson; 01/28/2020 1:21:27 PM Provider Impressions Assessment: as above Plan: 1. pessary removed. I replaced it with a #6 ring with support. she previously was using a #5 ring with support 2. she will see Dr. Melo for consult about surgery Signatures Electronically signed by : Mane Solis DO; Jan 28 2020 2:00PM EST (Author) Normal Touchworks CBCon 01-22-2020 Erythrocyte distribution width (RBC) [Ratio] 14.0 % Normal 11.5 - 14.5 [facility] Comment on above: Performed By: #### C BC #### [address] [address] Hematocrit (Bld) [Volume fraction] 45.0 % Normal 36.0 - 46.0 [facility] Comment on above: Performed By: #### C BC #### [address] [address] Hemoglobin (Bld) [Mass/Vol] 14.0 g/dL Normal 12.0 - 16.0 [facility] Comment on above: Performed By: #### C BC #### [address] [address] MCHC (RBC) [Mass/Vol] 31.1 g/dL Low 32.0 - 36.[address] [facility] Comment on above: Performed By: #### C BC #### [address] [address] MCV (RBC) [Entitic vol] 93 fL Normal 80 - 100 [place] Comment on above: Performed By: #### C BC #### [address] [address] Platelets (Bld) [#/Vol] 369 10*3/uL Normal 150 - 450 [place] Comment on above: Performed By: #### C BC #### [address] [address] RBC (Bld) [#/Vol] 4.83 x10E12/L Normal 4.00 - 5.20 [place] inson/[facility] Comment on above: Performed By: #### C BC #### [address] [address] WBC (Bld) [#/Vol] 8.1 10*3/uL Normal 4.4 - 11.3 [place]/[facility] Comment on above: Performed By: #### C BC #### [address] [address] COMPREHENSIVE PANELon 2019 Albumin [Mass/Vol] 4.2 g/dL Normal 3.4 - 5.0 [place]/[facility] Comment on above: Performed By: #### C MP #### [address] [address] ALP [Catalytic activity/Vol] 58 U/L Normal 33 - 136 [place] Comment on above: Performed By: #### C MP #### [address] [address] ALT [Catalytic activity/Vol] 11 U/L Normal 7 - 45 [place] Comment on above: Result Comment: Shelby ents treated with Sulfasalazine may generate falsely decreased results for ALT. Performed By: #### C MP #### [address] [address] Anion gap [Moles/Vol] 10 mmol/L Normal 10 - 20 [place] inson/[facility] Comment on above: Performed By: #### C MP #### [address] [address] AST [Catalytic activity/Vol] 15 U/L Normal 9 - 39 [place] Comment on above: Performed By: #### C MP #### [address] [address] Bilirubin [Mass/Vol] 0.4 mg/dL Normal 0.0 - 1.2 [place]/[facility] Comment on above: Performed By: #### C MP #### [address] [address] Calcium [Mass/Vol] 9.5 mg/dL Normal 8.6 - 10.3 [place]/[facility] Comment on above: Performed By: #### C MP #### [address] [address] Chloride [Moles/Vol] 104 mmol/L Normal 98 - 107 [place]/[facility] Comment on above: Performed By: #### C MP #### [address] [address] Creatinine [Mass/Vol] 0.63 mg/dL Normal 0.50 - 1.05 [place]/[facility] Comment on above: Performed By: #### C MP #### [address] [address] GFR- AM. >60 Normal >60 [place]/ [facility] Comment on above: Result Comment: CALC ULATIONS OF ESTIMATED GFR ARE PERFORMED USING THE MDRD STUDY EQUATION FOR THE IDMS-TRACEABLE CREATININE METHODS. CLIN CHEM 2007;53:766-72 Performed By: #### C MP #### [address] [address] GFR-NON AM. >60 Normal >60 Robert son/[facility] Comment on above: Performed By: #### C MP #### [address] [address] Glucose [Mass/Vol] 87 mg/dL Normal 74 - 99 [place]/[facility] Comment on above: Performed By: #### C MP #### [address] [address] HCO3 (Bld) [Moles/Vol] 31 mmol/L Normal 21 - 32 [place]/[facility] Comment on above: Performed By: #### C MP #### [address] [address] Potassium [Moles/Vol] 4.4 mmol/L Normal 3.5 - 5.3 [place]on/[facility] Comment on above: Performed By: #### C MP #### [address] [address] Protein [Mass/Vol] 7.6 g/dL Normal 6.4 - 8.2 [place]/[facility] Comment on above: Performed By: #### C MP #### [address] [address] Sodium [Moles/Vol] 141 mmol/L Normal 136 - 145 [place]/[facility] Comment on above: Performed By: #### C MP #### [address] [address] Urea nitrogen [Mass/Vol] 13 mg/dL Normal 6 - 23 [place] Comment on above: Performed By: #### C MP #### [address] [address] [facility]acon 01-22-2020 Cholesterol [Mass/Vol] 248 mg/dL above hig h threshold 0 - 199 [facility] [employer] Work Phone: Comment on above: . AGE DESIRABLE BORD TRINI HIGH HIGH 0-19 Y 0 - 169 170 - 199 >/= 200 20-24 Y 0 - 189 190 - 224 >/= 225 >24 Y 0 - 199 200 - 239 >/= 240 All ranges are based on fasting samples. Specific therapeutic targets will vary based on patient-specific cardiac risk.. Pediatric guidelines reference:Pediatrics 2011, 128(S5). Adult guidelines reference: NCEP ATPIII Guidelines, FRANCISCA 2001, 258:2486-97. Venipuncture immediately after or during the administration of Metamizole may lead to falsely low results. Testing should be performed immediately prior to Metamizole dosing. Cholesterol in HDL [Mass/Vol] 51.9 mg/dL [facility] [employer]ty Phone: Comment on above: . AGE VERY LOW LOW N ORMAL HIGH 0-19 Y < 35 < 40 40-45 ---- 20-24 Y ---- < 40 >45 ---- >24 Y ---- < 40 40-60 >60. Hematologyon 01-22-2020 Hematocrit (Bld) [Volume fraction] 45.0 % See Below [facility]ty Phone: Comment on above: Reference Range: 36. 0 - 46.0 Hemoglobin (Bld) [Mass/Vol] 14.0 g/dL See Below [facility] Phone: Comment on above: Reference Range: 12. 0 - 16.0 MCV (RBC) [Entitic vol] 93 fL 80 - 100 [facility] [employer] Work Phone: Platelets (Bld) [#/Vol] 369 {x10E9/L} 150 - 450 [facility] [employer]ty Phone: RBC (Bld) [#/Vol] 4.83 {x10E12/L} See Below [facility] [employer] Pty Phone: Comment on above: Reference Range: 4.0 0 - 5.20 WBC (Bld) [#/Vol] 8.1 {x10E9/L} 4.4 - 11.3 [facility] Work Phone: LIPID PANEL NON-FASTINGon Cholesterol [Mass/Vol] 248 mg/dL High 0 - 199 Ro [facility] Comment on above: Result Comment: . AGE DESIRABLE BORDERLINE HIGH HIGH 0-19 Y 0 - 169 170 - 199 >/= 200 20-24 Y 0 - 189 190 - 224 >/= 225 >24 Y 0 - 199 200 - 239 >/= 240 All ranges are based on fasting samples. Specific therapeutic targets will vary based on patient-specific cardiac risk. . Pediatric guidelines reference:Pediatrics 2011, 128(S5). Adult guidelines reference: NCEP ATPIII Guidelines, FRANCISCA 2001, 258:2486-97 . Venipuncture immediately after or during the administration of Metamizole may lead to falsely low results. Testing should be performed immediately prior to Metamizole dosing. Performed By: #### L IPIN #### [address] [address] Cholesterol in HDL [Mass/Vol] 51.9 mg/dL Normal [place] Comment on above: Result Comment: . AGE VERY LOW LOW NORMAL HIGH 0-19 Y < 35 < 40 40-45 ---- 20-24 Y ---- < 40 >45 ---- >24 Y ---- < 40 40-60 >60 . Performed By: #### L IPIN #### [address] [address] Cholesterol.total/Chol esterol in HDL [Mass ratio] 4.8 {ratio} Normal [place]/[facility] Comment on above: Result Comment: REF VALUES DESIRABLE < 3.4 HIGH RISK > 5.0 Performed By: #### L IPIN #### [address] [address] NON-HDL CHOLESTEROL 196 mg/dL Normal Robert [facility] Comment on above: Result Comment: AGE DESIRABLE BORDERLINE HIGH HIGH VERY HIGH 0-19 Y 0 - 119 120 - 144 >/= 145 >/= 160 20-24 Y 0 - 149 150 - 189 >/= 190 ---- >24 Y 30 MG/DL ABOVE LDL CHOLESTEROL GOAL . Performed By: #### L IPIN #### [address] [address] Metabolic Panelon 01-22-2020 ALP [Catalytic activity/Vol] 58 U/L 33 - 136 [facility] [employer] Work Phone: Anion gap [Moles/Vol] 10 mmol/L 10 - 20 [facility] [employer] Work Phone: Bilirubin [Mass/Vol] 0.4 mg/dL 0.0 - 1.2 [facility] [employer] Work Phone: Calcium [Mass/Vol] 9.5 mg/dL 8.6 - 10.3 [facility] 1[employer] Pty Phone: Chloride [Moles/Vol] 104 mmol/L 98 - 107 [facility] [employer] Work Phone: CO2 [Moles/Vol] 31 mmol/L 21 - 32 [facility] [employer] Work Phone: Creatinine [Mass/Vol] 0.63 mg/dL See Below [facility] 1[employer] Pty Phone: Comment on above: Reference Range: 0.5 0 - 1.05 Glucose [Mass/Vol] 87 mg/dL 74 - 99 [facility] are-N [facility] 1d[employer] Pty Phone: Potassium [Moles/Vol] 4.4 mmol/L 3.5 - 5.3 [facility] 1[employer] Pty Phone: Protein [Mass/Vol] 7.6 g/dL 6.4 - 8.2 [facility] are-N [facility] 1[employer] Pty Phone: Sodium [Moles/Vol] 141 mmol/L 136 - 145 [facility] are-N [facility] 1d[employer] Pty Phone: Urea nitrogen [Mass/Vol] 13 mg/dL 6 - 23 [facility] [employer] Work Phone: Otheron 01-22-2020 Albumin BCP dye [Mass/Vol] 4.2 g/dL 3.4 - 5.0 [facility] [employer] Work Phone: ALT With P-5'-P [Catalytic activity/Vol] 11 U/L 7 - 45 [facility] 1[facility] Pty Phone: Comment on above: Patients treated wit h Sulfasalazine may generate falsely decreased results for ALT. AST With P-5'-P [Catalytic activity/Vol] 15 U/L 9 - 39 [facility] Phone: Cholesterol non HDL [Mass/Vol] 196 mg/dL [employer] Phone: Comment on above: AGE DESIRABLE BORDER LINE HIGH HIGH VERY HIGH 0-19 Y 0 - 119 120 - 144 >/= 145 >/= 160 20-24 Y 0 - 149 150 - 189 >/= 190 ---- >24 Y 30 MG/DL ABOVE LDL CHOLESTEROL GOAL. Cholesterol.total/Chol esterol in HDL [Mass ratio] 4.8 {ratio} [employer] Phone: Comment on above: REF VALUESDESIRABLE < 3.4HIGH RISK > 5.0 Erythrocyte distribution width (RBC) [Ratio] 14.0 % See Below [employer] Phone: Comment on above: Reference Range: 11. 5 - 14.5 MCHC (RBC) [Mass/Vol] 31.1 g/dL below low threshold See Below [employer] Phone: Comment on above: Reference Range: 32. 0 - 36.0 >60 >60 [employer] Phone: Comment on above: CALCULATIONS OF AARON MATED GFR ARE PERFORMED USING THE MDRD STUDY EQUATION FOR THE IDMS-TRACEABLE CREATININE METHODS. CLIN CHEM 2007;53:766-72 TSHon 01-22-2020 TSH Qn 3.22 m[IU]/L Normal 0.44 - 3.98 [facility] Comment on above: Result Comment: TSH testing is performed using different testing methodology at [facility] than at other [facility]. Direct result comparisons should only be made within the same method. Performed By: #### T [facility] #### [facility] [address] [place] [address] TSH - Thyroid Stimulating Ho rmone, Serumon 01-22-2020 TSH Qn 3.22 {mIU/L} See Below [employer] Phone: Comment on above: Reference Range: 0.4 4 - 3.98 TSH testing is performed using different testing methodology at [facility] than at other [facility]. Direct result comparisons should only be made within the same method. AIRBRUSH ARTIST - Office Visiton AIRBRUSH ARTIST - Office Visit Chief Complaint 3 month follow up Pessary Check No Concerns History of Present IllnessDoing well. no bleeding. pessary working well Review of Systems Constitutional: no fever, no chills, no recent weight gain, no recent weight loss and no fatigue. Eyes: no eye pain, no vision problems and no dryness of the eyes. ENT: no hearing loss, no nosebleeds and no sinus congestion. Cardiovascular: no chest pain, no palpitations and no orthopnea. Respiratory: no shortness of breath, no cough and no wheezing. Gastrointestinal: no abdominal pain, no constipation, no nausea, no diarrhea and no vomiting. Genitourinary: no dysuria, no urinary incontinence, no vaginal dryness, no vaginal itching, no dyspareunia, no pelvic pain, no dysmenorrhea, no sexual problems, no change in urinary frequency, no vaginal discharge, no unexplained vaginal bleeding and no lesion/sore. Musculoskeletal: no back pain, no joint swelling and no leg edema. Integumentary: no rashes, no skin lesions, no nipple discharge, no breast pain and no breast lump. Neurological: no headache, no numbness and no dizziness. Psychiatric: no sleep disturbances, no anxiety and no depression. Endocrine: no hot flashes, no loss of hair and no hirsutism. Hematologic/Lymphatic: no swollen glands, no tendency for easy bleeding and no tendency for easy bruising. 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) Hyperlipidemia (272.4) (E78.5) Hypothyroidism (244.9) (E03.9) Somatic dysfunction (739.9) (M99.09) Uterine prolapse (618.1) (N81.4) Visit for screening mammogram (V76.12) (Z12.31) Vitamin D deficiency (268.9) (E55.9) Surgical History History of Foot surgery History of Foot surgery History of Tubal ligation Family History Family history of cardiac disorder (V17.49) (Z82.49) Family history of hypertension (V17.49) (Z82.49) Family history of cardiac disorder (V17.49) (Z82.49) Family history of hypertension (V17.49) (Z82.49) Family history of cardiac disorder (V17.49) (Z82.49) Family history of cardiac disorder (V17.49) (Z82.49) Social History Former smoker (V15.82) (Z87.891) Allergies codeine Dizziness; Recorded By: Louisa Rondon; 07/20/2019 2:07:48 PM Sulfa Drugs Headache; Recorded By: Louisa Rondon; 07/20/2019 2:07:48 PM amlodipine Recorded By: Louisa Rondon; 07/20/2019 2:07:48 PM Additional reactions - Other(See Desc) Augmentin Recorded By: Sloane Feng; 03/06/2019 10:30:31 AM Stomach cramping and diarrhea Current Meds Levothyroxine Sodium 75 MCG Oral Tablet; TAKE 1 TABLET DAILY Requested for: [id number]; Last Rx:[id number] Ordered Rx By: Rafael Frank III; Dispense: 90 Days ; #:90 Tablet; Refill: 1;For: Hypothyroidism; ZAK = N; Print Rx Aspirin Adult Low Dose 81 MG Oral Tablet Delayed Release; Therapy: (Recorded:06Mar2019) to Recorded Dispense: 0 Days ; #: Sufficient; Refill: 0; ZAK = N; Record; Last Updated By: Sloane Feng; 03/06/2019 10:30:31 AM Fontanez Concentrate Oral Concentrate; Therapy: (Recorded:23Jul2019) to Recorded Dispense: 0 Days ; #: Sufficient; Refill: 0; ZAK = N; Record; Last Updated By: Louisa Rondon; 07/23/2019 7:41:42 AM Fish Oil 500 MG Oral Capsule; 1 daily; Therapy: (Recorded:23Jul2019) to Recorded Dispense: 0 Days ; #: Sufficient Capsule; Refill: 0; ZAK = N; Record; Last Updated By: Louisa Rondon; 07/23/2019 7:41:42 AM Vitamin D3 25 MCG (1000 UT) Oral Tablet; TAKE 1 TABLET DAILY; Therapy: (Recorded:23Jul2019) to Recorded Dispense: 0 Days ; #: Sufficient Tablet; Refill: 0; ZAK = N; Record; Last Updated By: Louisa Rondon; 07/23/2019 7:41:42 AM Vitals Vital Signs Recorded: 21Oct2019 01:20PMRecorded: 21Oct2019 01:19PM Jocwxchd187 Jaaqvqmix73 Gidtys932 lb BMI Tzvcoyzmlt40.54 BSA Calculated1.91 Physical Exam Constitutional: Alert and in no acute distress. Well developed, well nourished. Genitourinary: Sexual maturation: Normal. External genitalia: Normal. Palpation of lymph nodes in groin: No inguinal lymphadenopathy. Bartholin's Urethral and Skenes Glands: Normal. Vestibule: Normal. Urethra: Normal. Bladder: Normal on palpation. Vagina: atrophy. Cervix: Normal. Uterus: Normal. reduced support. Right Adnexa/parametria: Normal. Left Adnexa/parametria: Normal. Inspection of Perianal Area: Normal. Psychiatric: Alert and oriented x 3. Affect normal to patient baseline. Mood: Appropriate. Diagnoses/Problems Midline cystocele (618.01) (N81.11) Uterine prolapse (618.1) (N81.4) Provider Impressions Assessment: as above Plan: 1. pessary removed and cleaned and replaced 2. follow up in 3 months Signatures Electronically signed by : Mane Solis DO; Oct 21 2019 1:47PM EST (Author) Normal Touchworks CBCon 07-22-2019 Erythrocyte distribution width (RBC) [Ratio] 14.2 % Normal 11.5 - 14.5 [facility] Comment on above: Performed By: #### C BC #### [address] [address] Hematocrit (Bld) [Volume fraction] 45.4 % Normal 36.0 - 46.0 [facility] Comment on above: Performed By: #### C BC #### [facility] [address] [place] [address] Hemoglobin (Bld) [Mass/Vol] 13.9 g/dL Normal 12.0 - 16.0 [facility] Comment on above: Performed By: #### C BC #### [address] [address] MCHC (RBC) [Mass/Vol] 30.6 g/dL Low 32.0 - 36.0 [place]/[facility] Comment on above: Performed By: #### C BC #### [address] [address] MCV (RBC) [Entitic vol] 92 fL Normal 80 - 100 [place] Comment on above: Performed By: #### C BC #### [address] [address] Platelets (Bld) [#/Vol] 349 10*3/uL Normal 150 - 450 [place] Comment on above: Performed By: #### C BC #### [address] [address] RBC (Bld) [#/Vol] 4.91 x10E12/L Normal 4.00 - 5.20 [place] inson/[facility] Comment on above: Performed By: #### C BC #### [address] [address] WBC (Bld) [#/Vol] 8.0 10*3/uL Normal 4.4 - 11.3 [place]/[facility] Comment on above: Performed By: #### C BC #### [address] [address] COMPREHENSIVE PANELon 2019 Albumin [Mass/Vol] 3.9 g/dL Normal 3.4 - 5.0 [place]/[facility] Comment on above: Performed By: #### C MP #### [address] [address] ALP [Catalytic activity/Vol] 66 U/L Normal 33 - 136 [place] Comment on above: Performed By: #### C MP #### [address] [address] ALT [Catalytic activity/Vol] 10 U/L Normal 7 - 45 [place] Comment on above: Result Comment: [place] ents treated with Sulfasalazine may generate falsely decreased results for ALT. Performed By: #### C MP #### [address] [address] Anion gap [Moles/Vol] 10 mmol/L Normal 10 - 20 [place] inson/[facility] Comment on above: Performed By: #### C MP #### [address] [address] AST [Catalytic activity/Vol] 14 U/L Normal 9 - 39 [place] Comment on above: Performed By: #### C MP #### [address] [address] Bilirubin [Mass/Vol] 0.5 mg/dL Normal 0.0 - 1.2 [place]/[facility] Comment on above: Performed By: #### C MP #### [place] [address] Calcium [Mass/Vol] 9.1 mg/dL Normal 8.6 - 10.3 [place]/[facility] Comment on above: Performed By: #### C MP #### [place] [address] Chloride [Moles/Vol] 106 mmol/L Normal 98 - 107 [place]/[facility] Comment on above: Performed By: #### C MP #### [address] [address] Creatinine [Mass/Vol] 0.59 mg/dL Normal 0.50 - 1.05 [place]/[facility] Comment on above: Performed By: #### C MP #### [address] [address] GFR- AM. >60 Normal >60 [place]/ [facility] Comment on above: Result Comment: CALC ULATIONS OF ESTIMATED GFR ARE PERFORMED USING THE MDRD STUDY EQUATION FOR THE IDMS-TRACEABLE CREATININE METHODS. CLIN CHEM 2007;53:766-72 Performed By: #### C MP #### [address] [address] GFR-NON AM. >60 Normal >60 Robert son/[facility] Comment on above: Performed By: #### C MP #### [address] [address] Glucose [Mass/Vol] 75 mg/dL Normal 74 - 99 [place] on/[facility] Comment on above: Performed By: #### C MP #### [address] [address] HCO3 (Bld) [Moles/Vol] 29 mmol/L Normal 21 - 32 [place]/[facility] Comment on above: Performed By: #### C MP #### [address] [address] Potassium [Moles/Vol] 4.2 mmol/L Normal 3.5 - 5.3 [place] inson/[facility] Comment on above: Performed By: #### C MP #### [address] [address] Protein [Mass/Vol] 6.9 g/dL Normal 6.4 - 8.2 [place]/[facility] Comment on above: Performed By: #### C MP #### [address] [address] Sodium [Moles/Vol] 141 mmol/L Normal 136 - 145 [place]/[facility] Comment on above: Performed By: #### C MP #### [address] [address] Urea nitrogen [Mass/Vol] 17 mg/dL Normal 6 - 23 [place] Comment on above: Performed By: #### C MP #### [address] [address] LIPID PANEL (CORONARY RISK 2 )on 07-22-2019 Cholesterol [Mass/Vol] 243 mg/dL High 0 - 199 [place] Comment on above: Result Comment: . AGE DESIRABLE BORDERLINE HIGH HIGH 0-19 Y 0 - 169 170 - 199 >/= 200 20-24 Y 0 - 189 190 - 224 >/= 225 >24 Y 0 - 199 200 - 239 >/= 240 All ranges are based on fasting samples. Specific therapeutic targets will vary based on patient-specific cardiac risk. . Pediatric guidelines reference:Pediatrics 2011, 128(S5). Adult guidelines reference: NCEP ATPIII Guidelines, FRANCISCA 2001, 258:2486-97 . Venipuncture immediately after or during the administration of Metamizole may lead to falsely low results. Testing should be performed immediately prior to Metamizole dosing. Performed By: #### L IPID #### [address] [address] Cholesterol in HDL [Mass/Vol] 47.0 mg/dL Normal [facility] Comment on above: Result Comment: . AGE VERY LOW LOW NORMAL HIGH 0-19 Y < 35 < 40 40-45 ---- 20-24 Y ---- < 40 >45 ---- >24 Y ---- < 40 40-60 >60 . Performed By: #### L IPID #### [address] [address] Cholesterol in LDL [Mass/Vol] 151 mg/dL High 0 - 99 [facility] Comment on above: Result Comment: . NEAR BORD AGE DESIRABLE OPTIMAL HIGH HIGH VERY HIGH 0-19 Y 0 - 109 --- 110-129 >/= 130 ---- 20-24 Y 0 - 119 --- 120-159 >/= 160 ---- >24 Y 0 - 99 100-129 130-159 160-189 >/=190 . Performed By: #### L IPID #### [address] [address] Cholesterol in VLDL [Mass/Vol] 45 mg/dL High 0 - 40 [facility] Comment on above: Performed By: #### L IPID #### [address] [address] Cholesterol.total/Chol esterol in HDL [Mass ratio] 5.2 {ratio} Abnormal [facility] Comment on above: Result Comment: REF VALUES DESIRABLE < 3.4 HIGH RISK > 5.0 Performed By: #### L IPID #### [address] [address] NON-HDL CHOLESTEROL 196 mg/dL Normal [facility] Comment on above: Result Comment: AGE DESIRABLE BORDERLINE HIGH HIGH VERY HIGH 0-19 Y 0 - 119 120 - 144 >/= 145 >/= 160 20-24 Y 0 - 149 150 - 189 >/= 190 ---- >24 Y 30 MG/DL ABOVE LDL CHOLESTEROL GOAL . Performed By: #### L IPID #### [facility] [address] [place] [address] Triglyceride [Mass/Vol] 225 mg/dL High 0 - 149 [place] Comment on above: Result Comment: . AGE DESIRABLE BORDERLINE HIGH HIGH VERY HIGH 0 D-90 D 19 - 174 ---- ---- ---- 91 D- 9 Y 0 - 74 75 - 99 >/= 100 ---- 10-19 Y 0 - 89 90 - 129 >/= 130 ---- 20-24 Y 0 - 114 115 - 149 >/= 150 ---- >24 Y 0 - 149 150 - 199 200- 499 >/= 500 . Venipuncture immediately after or during the administration of Metamizole may lead to falsely low results. Testing should be performed immediately prior to Metamizole dosing. Performed By: #### L IPID #### [address] [address] [employer] ARTIST - Office Visiton 07-12 [employer]IST - Office Visit Chief Complaint Pessary Follow Up History of Present Illness here for recheck of pessary, no bleeding. moving to [place] Review of Systems Constitutional: no fever, no chills, no recent weight gain, no recent weight loss and no fatigue. Eyes: no eye pain, no vision problems and no dryness of the eyes. ENT: no hearing loss, no nosebleeds and no sinus congestion. Cardiovascular: no chest pain, no palpitations and no orthopnea. Respiratory: no shortness of breath, no cough and no wheezing. Gastrointestinal: no abdominal pain, no constipation, no nausea, no diarrhea and no vomiting. Genitourinary: no dysuria, no urinary incontinence, no vaginal dryness, no vaginal itching, no dyspareunia, no pelvic pain, no dysmenorrhea, no sexual problems, no change in urinary frequency, no vaginal discharge, no unexplained vaginal bleeding and no lesion/sore. Musculoskeletal: no back pain, no joint swelling and no leg edema. Integumentary: no rashes, no skin lesions, no nipple discharge, no breast pain and no breast lump. Neurological: no headache, no numbness and no dizziness. Psychiatric: no sleep disturbances, no anxiety and no depression. Endocrine: no hot flashes, no loss of hair and no hirsutism. Hematologic/Lymphatic: no swollen glands, no tendency for easy bleeding and no tendency for easy bruising. 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49) (Z82.49) Family history of hypertension (V17.49) (Z82.49) Family history of cardiac disorder (V17.49) (Z82.49) Family history of hypertension (V17.49) (Z82.49) Family history of cardiac disorder (V17.49) (Z82.49) Family history of cardiac disorder (V17.49) (Z82.49) Social History Former smoker (V15.82) (Z87.891) Allergies codeine Dizziness; Recorded By: Louisa Rondon; 07/20/2019 2:07:48 PM Sulfa Drugs Headache; Recorded By: Louisa Rondon; 07/20/2019 2:07:48 PM amlodipine Recorded By: Louisa Rondon; 07/20/2019 2:07:48 PM Additional reactions - Other(See Desc) Augmentin Recorded By: Sloane Feng; 03/06/2019 10:30:31 AM Stomach cramping and diarrhea Current Meds Levothyroxine Sodium 75 MCG Oral Tablet; TAKE 1 TABLET DAILY Requested for: 18Mar2019; Last Rx:18Mar2019 Ordered Rx By: Rafael Frank III; Dispense: 90 Days ; #:90 Tablet; Refill: 1;For: Hypothyroidism; ZAK = N; Verified Transmission to [facility]; Last Updated By: System[employer]ia; 03/18/2019 8:27:37 AM Aspirin Adult Low Dose 81 MG Oral Tablet Delayed Release; Therapy: (Recorded:06Mar2019) to Recorded Dispense: 0 Days ; #: Sufficient; Refill: 0; ZAK = N; Record; Last Updated By: Sloane Feng; 03/06/2019 10:30:31 AM Vitamin D-3 TABS; Therapy: (Recorded:06Mar2019) to Recorded Dispense: 0 Days ; #: Sufficient; Refill: 0; ZAK = N; Record; Last Updated By: Sloane Feng; 03/06/2019 10:30:31 AM Vitals Vital Signs Recorded: 22Jul2019 11:25AM [id number] lb Physical Exam Constitutional: Alert and in no acute distress. Well developed, well nourished. Genitourinary: External genitalia: Normal. Palpation of lymph nodes in groin: No inguinal lymphadenopathy. Bartholin's Urethral and Skenes Glands: Normal. Urethra: Normal. Bladder: Normal on palpation. Vagina: Normal. no erosions. Cervix: Normal. a Pap smear was not performed. Uterus: Abnormal. The uterus was grade 3 uterine prolapse. Diagnoses/Problems Uterine prolapse (618.1) (N81.4) Provider Impressions Assessment: as above Plan: 1. pessary removed and cleaned and replaced 2. follow up in 3 months 3. when she gets settled and finds a doctor she will sign records release Signatures Electronically signed by : Mane Solis DO; Jul 22 2019 11:50AM EST (Author) Normal [facility]BV TSHon 07-22-2019 TSH Qn 2.12 m[IU]/L Normal 0.44 - 3.98 [place] Comment on above: Result Comment: Note new pediatric reference range as of 07/17/2019. TSH testing is performed using different testing methodology at [facility] than at other [facility]. Direct result comparisons should only be made within the same method. Performed By: #### T SH2 #### [facility] [address] [place] [address] VITAMIN D, 25-HYDROXYon 07-12 VITAMIN D, 25-HYDROXY 31 ng/mL Normal [place] [facility] Comment on above: Result Comment: . DEFICIENCY: < 20 NG/ML INSUFFICIENCY: 20-29 NG/ML SUFFICIENCY: 30-100 NG/ML THIS ASSAY ACCURATELY QUANTIFIES THE SUM OF VITAMIN D3, 25-HYDROXY AND VIT D2,25-HYDROXY. Performed By: #### V TDOH #### [facility] [address] [place] [address] CBCon 01-22-2019 Erythrocyte distribution width (RBC) [Ratio] 14.8 % Normal 11.4-16.0 [facility] Hematocrit (Bld) [Volume fraction] 42.5 % Normal 34.7-44.9 [facility] Hemoglobin (Bld) [Mass/Vol] 14.1 g/dL Normal 11.3-15.6 [facility] MCH (RBC) [Entitic mass] 29.1 pg Normal 26.5-33.0 [facility] MCHC (RBC) [Mass/Vol] 33.1 g/dL Normal 32.6-36.0 [facility] MCV (RBC) [Entitic vol] 87.7 fL Normal 80.0-100.0 [facility] Mean Plt Vol 8.8 fL Normal 7.2-10.3 [facility] Platelets (Bld) [#/Vol] 362 10*3/uL Normal 144-400 [facility] RBC (Bld) [#/Vol] 4.84 x10E12/L Normal 3.78-5.45 [facility] WBC (Bld) [#/Vol] 7.4 10*3/uL Normal 3.5-11.5 [facility] CMPon 01-22-2019 Albumin [Mass/Vol] 4.0 g/dL Normal 3.5-5.0 [facility] Alk Phos 62 IU/L Normal 32-91 [facility] ALT [Catalytic activity/Vol] 12 U/L Low 14-63 [facility] Anion gap [Moles/Vol] 11.0 mmol/L Normal 5.0-19.0 [facility] AST [Catalytic activity/Vol] 18 U/L Normal 15-41 [facility] Bilirubin [Mass/Vol] 0.5 mg/dL Normal 0.3-1.2 [facility] Bun/CretRatio 18.1 Normal [facility] Calcium [Mass/Vol] 9.5 mg/dL Normal 8.1-10.1 [facility] Chloride [Moles/Vol] 104 mmol/L Normal 98-107 [facility] CO2 [Moles/Vol] 25 mmol/L Normal 22-32 [facility] Creatinine [Mass/Vol] 0.72 mg/dL Normal 0.60-1.30 [facility] Glucose [Mass/Vol] 84 mg/dL Normal 70-100 [facility] Osmolality-Calc 279 mOsm/kg Normal [facility] Potassium [Moles/Vol] 4.0 mmol/L Normal 3.4-5.1 [facility] Protein [Mass/Vol] 7.3 g/dL Normal 6.5-8.1 [facility] Sodium [Moles/Vol] 140 mmol/L Normal 136-144 [facility] Urea nitrogen [Mass/Vol] 13 mg/dL Normal 8-26 [facility] LDL Calculatedon 01-22-2019 Cholesterol in LDL [Mass/Vol] 124 mg/dL Normal [facility] Comment on above: Result Comment: Calculated LDL is unreliable when Triglyceride result is greater than 400. TSHon 01-22-2019 TSH Qn 2.18 uIU/mL Normal 0.34-5.60 [facility] Vit D 25OHon 01-22-2019 Vit D 25-OH 22 ng/mL Normal [facility] Comment on above: Result Comment: Deficient: Less than 20 ng/mL Insufficient: 20 to less than 30 ng/mL Sufficient: 30 to 100 ng/mL Upper Safety Limit: Greater than 100 ng/mL ZLipidon 01-22-2019 Cholesterol [Mass/Vol] 219 mg/dL High 0-200 [facility] Cholesterol in HDL [Mass/Vol] 51 mg/dL Normal [facility] Triglyceride [Mass/Vol] 222 mg/dL High 0-149 [facility] JOSÉ ANTONIO/MAMMO SCRN DIGIT BILon 0 12-06-2018 Bilirubin [Mass/Vol] Patient Name: SANDRA SCHMITZ STUDY: JOSÉ ANTONIO/MAMMO SCRN DIGIT MADDI; 12/05/2018 12:40 pm INDICATION: Screening. COMPARISON: 08/22/2017 ACCESSION NUMBER(S): [id number] ORDERING CLINICIAN: MANE SOLIS FINDINGS: The breasts are almost entirely fatty. No suspicious masses or calcifications are identified. This study was interpreted with CAD. Markers: [place]- skin lesion; triangle- palpable abnormality IMPRESSION: No mammographic evidence of malignancy. BI-RADS CATEGORY: Category: 1 - Negative. Recommendation: Continued age appropriate screening mammography For any future breast imaging appointments, please call [phone]). Dictated by: Electronically Signed by: Isiah Dacosta Electronically Signed on: 12/06/2018 4:18 PM Normal [facility] NUC/HIDA W/ CCKon 11-08-2018 NUC/HIDA W/ CCK Patient Name: SANDRA SCHMITZ STUDY: NUC/HIDA W/ CCK; 11/08/2018 3:09 pm INDICATION: RUQ PAIN. COMPARISON: Ultrasound of the abdomen 10/21/2018, CT of the abdomen 10/31/2018 ACCESSION NUMBER(S): [id number] ORDERING CLINICIAN: LC MCCARTHY TECHNIQUE: DIVISION OF NUCLEAR MEDICINE HEPATOBILIARY SCAN (HIDA), QUANTITATIVE The patient received an intravenous dose of 4.9 mCi of Tc-99m mebrofenin (Choletec). Sequential images of the upper abdomen were then acquired over the next 60 minutes. An oral fatty meal of whole milk with added cream was then administered followed by an additional hour of imaging. Computer quantification of gallbladder emptying was also performed. FINDINGS: There is prompt accumulation of activity within the liver and normal subsequent excretion via the biliary ductal system into the small bowel. The gallbladder first visualizes at about 15 minutes after radiopharmaceutical injection and progressively fills. After fatty meal administration, there is prompt contraction of the gallbladder with further anterograde transit of activity into the small bowel. The gallbladder ejection fraction is calculated to be 95 % (normal above 38%). IMPRESSION: 1. Visualization of the gallbladder without evidence of acute cholecystitis. 2. Normal contraction of the gallbladder without evidence of chronic cholecystitis. 3. Normal liver function. 4. Patent biliary tract and outlet. I personally reviewed the images/study and I agree with the findings as stated. This study was interpreted at [facility], [place], [place]. Dictated by: Electronically Signed by: Moises Macdonald Electronically Signed on: 11/08/2018 3:40 PM Normal [facility] JOSÉ ANTONIO/CT ABD/PELVIS WITHon JOSÉ ANTONIO/CT ABD/PELVIS WITH Patient Name: SANDRA SCHMITZ STUDY: Unremarkable. JOSÉ ANTONIO/CT ABD/PELVIS WITH; 10/31/2018 12:26 pm INDICATION: PAIN. COMPARISON: 08/22/2017 ACCESSION NUMBER(S): [id number] ORDERING CLINICIAN: LC MCCARTHY TECHNIQUE: CT of the abdomen and pelvis was performed. Standard contiguous axial images were obtained at 3 mm slice thickness through the abdomen and pelvis. Coronal and sagittal reconstructions at 3 mm slice thickness were performed. 130 ml of contrast Omnipaque 350 were administered intravenously without immediate complication. FINDINGS: LOWER CHEST: Unremarkable ABDOMEN: LIVER: Unremarkable BILE DUCTS: No intra or extrahepatic bile duct dilation. GALLBLADDER: No gallbladder calculi, wall thickening or pericholecystic fluid. PANCREAS: Unremarkable SPLEEN: Unremarkable. ADRENAL GLANDS: Unremarkable. KIDNEYS AND URETERS: Both the kidneys show no abnormal enhancing lesions or hydronephrosis. PELVIS: BLADDER: Unremarkable. REPRODUCTIVE ORGANS: No pelvic masses. Vaginal pessary noted. BOWEL: No dilated bowel loops or bowel wall thickening. Increased fecal material in the colon. Few diverticula in the left colon. No acute diverticulitis. VESSELS: No aortic aneurysm PERITONEUM/RETROPERITONEU M/LYMPH NODES: No pathological enlarged lymphadenopathy. 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 No acute process in the abdominal wall. IMPRESSION: 1. Increased fecal material in the colon. 2. No acute intra-abdominal process noted. Dictated by: Electronically Signed by: Ted Stoll Electronically Signed on: 11/04/2018 1:[address] [facility] Creaton 10-29-2018 Creatinine [Mass/Vol] 0.64 mg/dL Normal 0.60-1.30 [facility] RUL/ABDOMEN LIMITEDon 2018 RUL/ABDOMEN LIMITED Patient Name: SANDRA SCHMITZ STUDY: RUL/ABDOMEN LIMITED; 10/21/2018 9:19 am INDICATION: RUQ ABD PAIN--EAL GB. COMPARISON: None. ACCESSION NUMBER(S): [id number] ORDERING CLINICIAN: LC MCCARTHY TECHNIQUE: Multiple images of the abdomen were obtained. FINDINGS: LIVER: The echogenicity of the liver is within normal limits. There is no hepatic mass. The sagittal dimension of the right lobe of the liver is 13.7 cm GALLBLADDER: The gallbladder is nondistended. The gallbladder wall is not thickened. There are no gallstones. There is no sludge. There is no pericholecystic fluid. BILE DUCTS: There is no intrahepatic biliary dilatation. The common bile duct is nondilated measuring 4 mm. PANCREAS: The pancreas is unremarkable. RIGHT KIDNEY: The right kidney is normal in size measuring 10.2 cm in length The echogenicity of the cortex is within normal limits. There is no renal mass. There is no intrarenal calculus or hydronephrosis. IMPRESSION: Unremarkable right upper quadrant ultrasound. Dictated by: Electronically Signed by: Pamela Morales Electronically Signed on: 10/21/2018 10:09 AM Normal [facility] CBCon 08-08-2018 Erythrocyte distribution width (RBC) [Ratio] 15.1 % Normal 11.4-16.0 [facility] Hematocrit (Bld) [Volume fraction] 42.3 % Normal 34.7-44.9 [facility] Hemoglobin (Bld) [Mass/Vol] 13.9 g/dL Normal 11.3-15.6 [facility] MCH (RBC) [Entitic mass] 28.7 pg Normal 26.5-33.0 [facility] MCHC (RBC) [Mass/Vol] 32.8 g/dL Normal 32.6-36.0 [facility] MCV (RBC) [Entitic vol] 87.7 fL Normal 80.0-100.0 [facility] Mean Plt Vol 8.7 fL Normal 7.2-10.3 [facility] Platelets (Bld) [#/Vol] 367 10*3/uL Normal 144-400 [facility] RBC (Bld) [#/Vol] 4.82 x10E12/L Normal 3.78-5.45 [facility] WBC (Bld) [#/Vol] 7.4 10*3/uL Normal 3.5-11.5 [facility] CMPon 08-08-2018 Albumin [Mass/Vol] 4.0 g/dL Normal 3.5-5.0 [facility] Alk Phos 56 IU/L Normal 32-91 [facility] ALT [Catalytic activity/Vol] 12 U/L Low 14-63 [facility] Anion gap [Moles/Vol] 12.0 mmol/L Normal 5.0-19.0 [facility] AST [Catalytic activity/Vol] 22 U/L Normal 15-41 [facility] Bilirubin [Mass/Vol] 0.3 mg/dL Normal 0.3-1.2 [facility] Bun/CretRatio 20.2 Normal [facility] Calcium [Mass/Vol] 9.1 mg/dL Normal 8.1-10.1 [facility] Chloride [Moles/Vol] 102 mmol/L Normal 98-107 [facility] CO2 [Moles/Vol] 27 mmol/L Normal 22-32 [facility] Creatinine [Mass/Vol] 0.84 mg/dL Normal 0.60-1.30 [facility] Glucose [Mass/Vol] 80 mg/dL Normal 70-100 [facility] Osmolality-Calc 282 mOsm/kg Normal [facility] Potassium [Moles/Vol] 3.9 mmol/L Normal 3.4-5.1 [facility] Protein [Mass/Vol] 7.3 g/dL Normal 6.5-8.1 [facility] Sodium [Moles/Vol] 141 mmol/L Normal 136-144 [facility] Urea nitrogen [Mass/Vol] 17 mg/dL Normal 8-26 [facility] LDL Calculatedon 08-08-2018 Cholesterol in LDL [Mass/Vol] 144 mg/dL Normal [facility] Comment on above: Result Comment: Calculated LDL is unreliable when Triglyceride result is greater than 400. ZLipidon 08-08-2018 Cholesterol [Mass/Vol] 237 mg/dL High 0-200 [facility] Cholesterol in HDL [Mass/Vol] 49 mg/dL Normal [facility] Triglyceride [Mass/Vol] 222 mg/dL High 0-149 [facility] Vital Signs Date Time Vital Sign Value Performing Clinician Facility 11-13-2024 23:09-0400 Body temperature 98 [degF] Dr. Mandeep Houser DO Work Phone: [facility] 11-13-2024 23:09-0400 Diastolic blood pressure 63 mm[Hg] Dr. Mandeep Houser DO Work Phone: [facility] 11-13-2024 23:09-0400 Heart rate 65 /min Dr. Mandeep Houser DO Work Phone: [facility] 11-13-2024 23:09-0400 Respiratory rate 17 /min Dr. Mandeep Houser DO Work Phone: [facility] 11-13-2024 23:09-0400 SaO2% (BldA) [Mass fraction] 100 % Dr. Mandeep Houser DO Work Phone: [facility] 11-13-2024 23:09-0400 Systolic blood pressure 101 mm[Hg] Dr. Mandeep Houser DO Work Phone: [facility] 11-13-2024 17:55-0400 Body height 160.[address] Mandeep Houser DO Work Phone: [facility] 11-13-2024 17:55-0400 Body mass index (BMI) [Ratio] 35.3 kg/m2 Dr. Mandeep Houser DO Work Phone: [facility] 11-13-2024 17:55-0400 Body weight 90.[address] Mandeep Houser DO Work Phone: [facility] 11-03-2024 15:12-0400 Body height 162.6 cm Morenita Hill APRN.CNP Work Phone: [facility] 11-03-2024 15:12-0400 Body mass index (BMI) [Ratio] 32.62 kg/m2 Morenita Hill VICE PRESIDENT OF OPERATIONS.DIRECTOR OF DONOR RELATIONS Work Phone: [facility] 11-03-2024 15:12-0400 Body weight 86.2 kg Morenita Hill VICE PRESIDENT OF OPERATIONS.DIRECTOR OF DONOR RELATIONS Work Phone: [facility] 11-03-2024 15:12-0400 Diastolic blood pressure 71 mm[Hg] Morenita Hill VICE PRESIDENT OF OPERATIONS.DIRECTOR OF DONOR RELATIONS Work Phone: [facility] 11-03-2024 15:12-0400 Heart rate 70 /min Morenita Hill VICE PRESIDENT OF OPERATIONS.DIRECTOR OF DONOR RELATIONS Work Phone: [facility] 11-03-2024 15:12-0400 SaO2% (BldA) [Mass fraction] 93 % Morenita Hill VICE PRESIDENT OF OPERATIONS.DIRECTOR OF DONOR RELATIONS Work Phone: [facility] 11-03-2024 15:12-0400 Systolic blood pressure 119 mm[Hg] Morenita Hill VICE PRESIDENT OF OPERATIONS.DIRECTOR OF DONOR RELATIONS Work Phone: [facility] 11-03-2024 14:05-0400 Body height 162.6 cm Pili Wells MD Work Phone: [facility] 11-03-2024 14:05-0400 Body mass index (BMI) [Ratio] 33.34 kg/m2 Pili Wells MD Work Phone: [facility] 11-03-2024 14:05-0400 Body weight 88.1 kg Pili Wells MD Work Phone: [facility] 11-03-2024 14:05-0400 Diastolic blood pressure 85 mm[Hg] Pili Wells MD Work Phone: [facility] 11-03-2024 14:05-0400 Heart rate 67 /min Pili Wells MD Work Phone: [facility] 11-03-2024 14:05-0400 Systolic blood pressure 126 mm[Hg] Pili Wells MD Work Phone: [facility] 07-21-2024 15:55-0400 Body mass index (BMI) [Ratio] 34.19 kg/m2 Mandeep Houser DO Work Phone: [facility] 07-21-2024 15:55-0400 Body temperature 97 [degF] Mandeep Houser DO Work Phone: [facility] 07-21-2024 15:55-0400 Body weight 87.54 kg Mandeep Houser DO Work Phone: [facility] 07-21-2024 15:55-0400 Diastolic blood pressure 82 mm[Hg] Mandeep Houser DO Work Phone: [facility] 07-21-2024 15:55-0400 Heart rate 76 /min Mandeep Houser DO Work Phone: [facility] 07-21-2024 15:55-0400 Respiratory rate 20 /min Mandeep Houser DO Work Phone: [facility] 07-21-2024 15:55-0400 Systolic blood pressure 146 mm[Hg] Mandeep Houser DO Work Phone: [facility] 07-08-2024 14:47-0500 Body mass index (BMI) [Ratio] 32.59 kg/m2 Mandeep Houser DO Work Phone: [facility] 07-08-2024 14:47-0500 Body weight 83.46 kg Mandeep Houser DO Work Phone: [facility] 07-08-2024 14:47-0500 Diastolic blood pressure 70 mm[Hg] Mandeep Houser DO Work Phone: [facility] 07-08-2024 14:47-0500 Heart rate 66 /min Mandeep Houser DO Work Phone: [facility] 07-08-2024 14:47-0500 SaO2% (BldA) [Mass fraction] 96 % Mandeep Houser DO Work Phone: [facility] 07-08-2024 14:47-0500 Systolic blood pressure 110 mm[Hg] Mandeep Houser DO Work Phone: [facility] 02-07-2024 14:13-0400 Body mass index (BMI) [Ratio] 34.84 kg/m2 Angel [place] DO Work Phone: [facility] 02-07-2024 14:13-0400 Body weight 89.2 kg Angel [place] DO Work Phone: [facility] 02-07-2024 14:13-0400 Diastolic blood pressure 78 mm[Hg] Angel [place] DO Work Phone: [facility] 02-07-2024 14:13-0400 Heart rate 83 /min Angel [place] DO Work Phone: [facility] 02-07-2024 14:13-0400 SaO2% (BldA) [Mass fraction] 95 % Angel [place] DO Work Phone: [facility] 02-07-2024 14:13-0400 Systolic blood pressure 132 mm[Hg] Angel [place] DO Work Phone: [facility] 01-15-2024 12:54-0400 Diastolic blood pressure 67 mm[Hg] Pili Wells MD Work Phone: [facility] 01-15-2024 12:54-0400 Heart rate 65 /min Pili Wells MD Work Phone: [facility] 01-15-2024 12:54-0400 Systolic blood pressure 104 mm[Hg] Pili Wells MD Work Phone: [facility] 01-15-2024 12:48-0400 Body mass index (BMI) [Ratio] 34.44 kg/m2 Pili Wells MD Work Phone: [facility] 01-15-2024 12:48-0400 Body weight 88.2 kg Pili Wells MD Work Phone: [facility] 01-15-2024 12:48-0400 SaO2% (BldA) [Mass fraction] 96 % Pili Wells MD Work Phone: [facility] Comment on above: 11-01-2023 09:13-0400 Body height 160 cm Mercedes Vera VICE PRESIDENT OF OPERATIONS.DIRECTOR OF DONOR RELATIONS Work Phone: [facility] 11-01-2023 09:13-0400 Body mass index (BMI) [Ratio] 34.01 kg/m2 Mercedes Vera VICE PRESIDENT OF OPERATIONS.DIRECTOR OF DONOR RELATIONS Work Phone: [facility] 11-01-2023 09:13-0400 Body weight 87.09 kg Mercedes Vera VICE PRESIDENT OF OPERATIONS.DIRECTOR OF DONOR RELATIONS Work Phone: [facility] 11-01-2023 09:13-0400 Diastolic blood pressure 79 mm[Hg] Mercedes Vera VICE PRESIDENT OF OPERATIONS.DIRECTOR OF DONOR RELATIONS Work Phone: [facility] 11-01-2023 09:13-0400 Heart rate 68 /min Mercedes Vera VICE PRESIDENT OF OPERATIONS.DIRECTOR OF DONOR RELATIONS Work Phone: [facility] 11-01-2023 09:13-0400 Systolic blood pressure 125 mm[Hg] Mercedes Vera VICE PRESIDENT OF OPERATIONS.DIRECTOR OF DONOR RELATIONS Work Phone: [facility] 10-31-2023 15:08-0400 Body mass index (BMI) [Ratio] 34.37 kg/m2 Mandeep Houser DO Work Phone: [facility] 10-31-2023 15:08-0400 Body temperature 96.4 [degF] Mandeep Houesr DO Work Phone: [facility] 10-31-2023 15:08-0400 Body weight 88 kg Mandeep Houser DO Work Phone: [facility] 10-31-2023 15:08-0400 Diastolic blood pressure 80 mm[Hg] Mandeep Houser DO Work Phone: [facility] 10-31-2023 15:08-0400 Heart rate 76 /min Mandeep Houser DO Work Phone: [facility] 10-31-2023 15:08-0400 Respiratory rate 20 /min Mandeep Houser DO Work Phone: [facility] 10-31-2023 15:08-0400 Systolic blood pressure 150 mm[Hg] Mandeep Houser DO Work Phone: [facility] 10-15-2023 11:41-0400 Body mass index (BMI) [Ratio] 34.4 kg/m2 Rupali Nascimento VICE PRESIDENT OF OPERATIONS.DIRECTOR OF DONOR RELATIONS Work Phone: [facility] 10-15-2023 11:41-0400 Body weight 88.09 kg Rupali Nascimento VICE PRESIDENT OF OPERATIONS.DIRECTOR OF DONOR RELATIONS Work Phone: [facility] 10-15-2023 11:41-0400 Diastolic blood pressure 68 mm[Hg] Rupali Nascimento VICE PRESIDENT OF OPERATIONS.DIRECTOR OF DONOR RELATIONS Work Phone: [facility] 10-15-2023 11:41-0400 Heart rate 68 /min Rupali Nascimento VICE PRESIDENT OF OPERATIONS.DIRECTOR OF DONOR RELATIONS Work Phone: [facility] 10-15-2023 11:41-0400 Respiratory rate 14 /min Rupali Nascimento VICE PRESIDENT OF OPERATIONS.DIRECTOR OF DONOR RELATIONS Work Phone: [facility] 10-15-2023 11:41-0400 SaO2% (BldA) [Mass fraction] 94 % Rupali Nascimento VICE PRESIDENT OF OPERATIONS.DIRECTOR OF DONOR RELATIONS Work Phone: [facility] 10-15-2023 11:41-0400 Systolic blood pressure 130 mm[Hg] Rupali Nascimento VICE PRESIDENT OF OPERATIONS.DIRECTOR OF DONOR RELATIONS Work Phone: [facility] 10-01-2023 12:22-0400 Body mass index (BMI) [Ratio] 34.15 kg/m2 Alejandrina Yasir VICE PRESIDENT OF OPERATIONS.DIRECTOR OF DONOR RELATIONS Work Phone: [facility] 10-01-2023 12:22-0400 Body temperature 97.11 [degF] Alejandrina Yasir VICE PRESIDENT OF OPERATIONS.DIRECTOR OF DONOR RELATIONS Work Phone: [facility] 10-01-2023 12:22-0400 Body weight 87.45 kg Alejandrina Yasir VICE PRESIDENT OF OPERATIONS.DIRECTOR OF DONOR RELATIONS Work Phone: [facility] 10-01-2023 12:22-0400 Diastolic blood pressure 84 mm[Hg] Alejandrina Yasir VICE PRESIDENT OF OPERATIONS.DIRECTOR OF DONOR RELATIONS Work Phone: [facility] 10-01-2023 12:22-0400 Heart rate 80 /min Alejandrina Yasir VICE PRESIDENT OF OPERATIONS.DIRECTOR OF DONOR RELATIONS Work Phone: [facility] 10-01-2023 12:22-0400 Respiratory rate 16 /min Alejandrina Yasir VICE PRESIDENT OF OPERATIONS.DIRECTOR OF DONOR RELATIONS Work Phone: [facility] 10-01-2023 12:22-0400 SaO2% (BldA) [Mass fraction] 95 % Alejandrina Yasir VICE PRESIDENT OF OPERATIONS.DIRECTOR OF DONOR RELATIONS Work Phone: [facility] 10-01-2023 12:22-0400 Systolic blood pressure 118 mm[Hg] Alejandrina Yasir VICE PRESIDENT OF OPERATIONS.DIRECTOR OF DONOR RELATIONS Work Phone: [facility] 09-13-2023 11:04-0400 Body mass index (BMI) [Ratio] 34.12 kg/m2 Alejandrina Yasir VICE PRESIDENT OF OPERATIONS.DIRECTOR OF DONOR RELATIONS Work Phone: [facility] 09-13-2023 11:04-0400 Body weight 87.36 kg Alejandrina Yasir VICE PRESIDENT OF OPERATIONS.DIRECTOR OF DONOR RELATIONS Work Phone: [facility] 09-13-2023 11:04-0400 Diastolic blood pressure 80 mm[Hg] Alejandrina Yasir VICE PRESIDENT OF OPERATIONS.DIRECTOR OF DONOR RELATIONS Work Phone: [facility] 09-13-2023 11:04-0400 Heart rate 73 /min Alejandrina Yasir VICE PRESIDENT OF OPERATIONS.DIRECTOR OF DONOR RELATIONS Work Phone: [facility] 09-13-2023 11:04-0400 Respiratory rate 16 /min Alejandrina Yasir VICE PRESIDENT OF OPERATIONS.DIRECTOR OF DONOR RELATIONS Work Phone: [facility] 09-13-2023 11:04-0400 SaO2% (BldA) [Mass fraction] 94 % Alejandrina Yasir VICE PRESIDENT OF OPERATIONS.DIRECTOR OF DONOR RELATIONS Work Phone: [facility] 09-13-2023 11:04-0400 Systolic blood pressure 122 mm[Hg] Alejandrina Yasir VICE PRESIDENT OF OPERATIONS.DIRECTOR OF DONOR RELATIONS Work Phone: [facility] 09-05-2023 10:51-0400 Body height 160 cm Thuy Aguirre APRN.DIRECTOR OF DONOR RELATIONS Work Phone: [facility] 09-05-2023 10:51-0400 Body mass index (BMI) [Ratio] 34.05 kg/m2 Thuy Aguirre VICE PRESIDENT OF OPERATIONS.DIRECTOR OF DONOR RELATIONS Work Phone: [facility] 09-05-2023 10:51-0400 Body weight 87.2 kg Thuy Aguirre VICE PRESIDENT OF OPERATIONS.DIRECTOR OF DONOR RELATIONS Work Phone: [facility] 09-05-2023 10:51-0400 Diastolic blood pressure 84 mm[Hg] Thuy Aguirre VICE PRESIDENT OF OPERATIONS.DIRECTOR OF DONOR RELATIONS Work Phone: [facility] 09-05-2023 10:51-0400 Heart rate 84 /min Thuy Aguirre VICE PRESIDENT OF OPERATIONS.DIRECTOR OF DONOR RELATIONS Work Phone: [facility] 09-05-2023 10:51-0400 SaO2% (BldA) [Mass fraction] 97 % Thuy Aguirre VICE PRESIDENT OF OPERATIONS.DIRECTOR OF DONOR RELATIONS Work Phone: [facility] 09-05-2023 10:51-0400 Systolic blood pressure 128 mm[Hg] Thuy Aguirre VICE PRESIDENT OF OPERATIONS.DIRECTOR OF DONOR RELATIONS Work Phone: [facility] 08-29-2023 15:37-0400 Body mass index (BMI) [Ratio] 33.6 kg/m2 [facility] 08-29-2023 15:17-0400 Body height 160.02 cm [facility] 08-29-2023 15:17-0400 Body weight 86.18 kg [facility] 08-29-2023 14:28-0400 Diastolic blood pressure 82 mm[Hg] [facility] 08-29-2023 14:28-0400 Heart rate 91 /min [facility] 08-29-2023 14:28-0400 SaO2% (BldA) [Mass fraction] 95 % [facility] 08-29-2023 14:28-0400 Systolic blood pressure 125 mm[Hg] [facility] 08-22-2023 10:27-0400 Body temperature 96.91 [degF] Alejandrina Harvey VICE PRESIDENT OF OPERATIONS.DIRECTOR OF DONOR RELATIONS Work Phone: [facility] 08-22-2023 10:27-0400 Body weight 87 kg Alejandrina Waldenman VICE PRESIDENT OF OPERATIONS.DIRECTOR OF DONOR RELATIONS Work Phone: [facility] 08-22-2023 10:27-0400 Diastolic blood pressure 84 mm[Hg] Alejandrina Waldenman VICE PRESIDENT OF OPERATIONS.DIRECTOR OF DONOR RELATIONS Work Phone: [facility] 08-22-2023 10:27-0400 Heart rate 76 /min Alejandrina Waldenman VICE PRESIDENT OF OPERATIONS.DIRECTOR OF DONOR RELATIONS Work Phone: [facility] 08-22-2023 10:27-0400 SaO2% (BldA) [Mass fraction] 95 % Alejandrina Waldenman VICE PRESIDENT OF OPERATIONS.DIRECTOR OF DONOR RELATIONS Work Phone: [facility] 08-22-2023 10:27-0400 Systolic blood pressure 122 mm[Hg] Alejandrina Waldenman VICE PRESIDENT OF OPERATIONS.DIRECTOR OF DONOR RELATIONS Work Phone: [facility] 08-07-2023 14:44-0400 Body height 160 cm Dilcia Bonilla MD Work Phone: [facility] 08-07-2023 14:44-0400 Body weight 86.59 kg Dilcia Bonilla MD Work Phone: [facility] 08-07-2023 14:44-0400 Diastolic blood pressure 82 mm[Hg] Dilcia Bonilla MD Work Phone: [facility] 08-07-2023 14:44-0400 Heart rate 91 /min Dilcia Bonilla MD Work Phone: [facility] 08-07-2023 14:44-0400 SaO2% (BldA) [Mass fraction] 95 % Dilcia Bonilla MD Work Phone: [facility] 08-07-2023 14:44-0400 Systolic blood pressure 125 mm[Hg] Dilcia Bonilla MD Work Phone: [facility] 07-24-2023 13:42-0400 Body temperature 97 [degF] Mandeep Houser DO Work Phone: [facility] 07-24-2023 13:42-0400 Body weight 87.54 kg Mandeep Houser DO Work Phone: [facility] 07-24-2023 13:42-0400 Diastolic blood pressure 80 mm[Hg] Mandeep Houser DO Work Phone: [facility] 07-24-2023 13:42-0400 Heart rate 80 /min Mandeep Houser DO Work Phone: [facility] 07-24-2023 13:42-0400 Respiratory rate 20 /min Mandeep Houser DO Work Phone: [facility] 07-24-2023 13:42-0400 Systolic blood pressure 120 mm[Hg] Mandeep Houser DO Work Phone: [facility] 10-14-2022 14:12-0400 Body temperature 99.81 [degF] Shanell Older VICE PRESIDENT OF OPERATIONS.DIRECTOR OF DONOR RELATIONS Work Phone: [facility] 10-14-2022 14:12-0400 Body weight 88.91 kg Shanell Older VICE PRESIDENT OF OPERATIONS.DIRECTOR OF DONOR RELATIONS Work Phone: [facility] 10-14-2022 14:12-0400 Diastolic blood pressure 78 mm[Hg] Shanell Older VICE PRESIDENT OF OPERATIONS.DIRECTOR OF DONOR RELATIONS Work Phone: [facility] 10-14-2022 14:12-0400 Heart rate 87 /min Shanell Older VICE PRESIDENT OF OPERATIONS.DIRECTOR OF DONOR RELATIONS Work Phone: [facility] 10-14-2022 14:12-0400 Respiratory rate 22 /min Shanell Older VICE PRESIDENT OF OPERATIONS.DIRECTOR OF DONOR RELATIONS Work Phone: [facility] 10-14-2022 14:12-0400 SaO2% (BldA) [Mass fraction] 94 % Shanell Older VICE PRESIDENT OF OPERATIONS.DIRECTOR OF DONOR RELATIONS Work Phone: [facility] 10-14-2022 14:12-0400 Systolic blood pressure 104 mm[Hg] Shanell Older VICE PRESIDENT OF OPERATIONS.DIRECTOR OF DONOR RELATIONS Work Phone: [facility] 08-14-2022 11:20-0400 Body weight 87.09 kg Santo Oneill MD Work Phone: [facility] 08-14-2022 11:20-0400 Diastolic blood pressure 70 mm[Hg] Santo Oneill MD Work Phone: [facility] 08-14-2022 11:20-0400 Heart rate 87 /min Santo Oneill MD Work Phone: [facility] 08-14-2022 11:20-0400 SaO2% (BldA) [Mass fraction] 94 % Santo Oneill MD Work Phone: [facility] 08-14-2022 11:20-0400 Systolic blood pressure 110 mm[Hg] Santo Oneill MD Work Phone: [facility] 07-21-2022 10:44-0500 Body weight 89.54 kg Alejandrina Yasir VICE PRESIDENT OF OPERATIONS.DIRECTOR OF DONOR RELATIONS Work Phone: [facility] 07-21-2022 10:44-0500 Diastolic blood pressure 78 mm[Hg] Alejandrina Yasir VICE PRESIDENT OF OPERATIONS.DIRECTOR OF DONOR RELATIONS Work Phone: [facility] 07-21-2022 10:44-0500 Heart rate 64 /min Alejandrina Yasir VICE PRESIDENT OF OPERATIONS.DIRECTOR OF DONOR RELATIONS Work Phone: [facility] 07-21-2022 10:44-0500 SaO2% (BldA) [Mass fraction] 93 % Alejandrina Yasir VICE PRESIDENT OF OPERATIONS.DIRECTOR OF DONOR RELATIONS Work Phone: [facility] 07-21-2022 10:44-0500 Systolic blood pressure 130 mm[Hg] Alejandrina Yasir VICE PRESIDENT OF OPERATIONS.DIRECTOR OF DONOR RELATIONS Work Phone: [facility] 02-13-2022 11:07-0400 Body height 162.6 cm Santo Oneill MD Work Phone: [facility] 02-13-2022 11:07-0400 Body weight 89.09 kg Santo Oneill MD Work Phone: [facility] 02-13-2022 11:07-0400 Diastolic blood pressure 84 mm[Hg] Santo Oneill MD Work Phone: [facility] 02-13-2022 11:07-0400 Heart rate 80 /min Santo Oneill MD Work Phone: [facility] 02-13-2022 11:07-0400 Systolic blood pressure 136 mm[Hg] Santo Oneill MD Work Phone: [facility] 01-20-2022 10:46-0400 Body weight 87.91 kg Alejandrina Yasir VICE PRESIDENT OF OPERATIONS.DIRECTOR OF DONOR RELATIONS Work Phone: [facility] 01-20-2022 10:46-0400 Diastolic blood pressure 78 mm[Hg] Alejandrina Yasir VICE PRESIDENT OF OPERATIONS.DIRECTOR OF DONOR RELATIONS Work Phone: [facility] 01-20-2022 10:46-0400 Heart rate 79 /min Alejandrina Yasir VICE PRESIDENT OF OPERATIONS.DIRECTOR OF DONOR RELATIONS Work Phone: [facility] 01-20-2022 10:46-0400 SaO2% (BldA) [Mass fraction] 95 % Alejandrina Yasir VICE PRESIDENT OF OPERATIONS.DIRECTOR OF DONOR RELATIONS Work Phone: [facility] 01-20-2022 10:46-0400 Systolic blood pressure 124 mm[Hg] Alejandrina Yasir VICE PRESIDENT OF OPERATIONS.DIRECTOR OF DONOR RELATIONS Work Phone: [facility] 12-19-2021 09:10-0400 Body temperature 97.2 [degF] Sincere Westby PA-C Work Phone: [facility] 12-19-2021 09:10-0400 Diastolic blood pressure 70 mm[Hg] Sincere Maddie PA-C Work Phone: [facility] 12-19-2021 09:10-0400 Heart rate 76 /min Sincere Maddie PA-C Work Phone: [facility] 12-19-2021 09:10-0400 SaO2% (BldA) [Mass fraction] 92 % Sincere Maddie PA-C Work Phone: [facility] 12-19-2021 09:10-0400 Systolic blood pressure 128 mm[Hg] Sincere Westby PA-C Work Phone: [facility] 12-05-2021 10:53-0400 Body temperature 98.2 [degF] Wes Marshall MD Work Phone: [facility] 12-05-2021 10:53-0400 Heart rate 60 /min Wes Marshall MD Work Phone: [facility] 12-05-2021 10:53-0400 Respiratory rate 8 /min Wes Marshall MD Work Phone: [facility] 12-05-2021 10:53-0400 SaO2% (BldA) [Mass fraction] 98 % Wes Marshall MD Work Phone: [facility] 12-05-2021 10:45-0400 Diastolic blood pressure 70 mm[Hg] Wes Marshall MD Work Phone: [facility] 12-05-2021 10:45-0400 Systolic blood pressure 135 mm[Hg] Wes Marshall MD Work Phone: [facility] 11-02-2021 13:29-0400 Body height 162.6 cm Sincere Maddie PA-C Work Phone: [facility] 11-02-2021 13:29-0400 Body temperature 97.3 [degF] Sincere Maddie PA-C Work Phone: [facility] 11-02-2021 13:29-0400 Body weight 86.64 kg Sincere Westby PA-C Work Phone: [facility] 11-02-2021 13:29-0400 Diastolic blood pressure 62 mm[Hg] Sincere Maddie PA-C Work Phone: [facility] 11-02-2021 13:29-0400 Heart rate 80 /min Sincere Westby PA-C Work Phone: [facility] 11-02-2021 13:29-0400 SaO2% (BldA) [Mass fraction] 94 % Sincere Westby PA-C Work Phone: [facility] 11-02-2021 13:29-0400 Systolic blood pressure 118 mm[Hg] Sincere Perkins PA-C Work Phone: [facility] 10-19-2021 11:38-0400 Body weight 86.73 kg Alejandrina Yasir VICE PRESIDENT OF OPERATIONS.DIRECTOR OF DONOR RELATIONS Work Phone: [facility] 10-19-2021 11:38-0400 Diastolic blood pressure 92 mm[Hg] Alejandrnia Yasir VICE PRESIDENT OF OPERATIONS.DIRECTOR OF DONOR RELATIONS Work Phone: [facility] 10-19-2021 11:38-0400 Heart rate 79 /min Alejandrina Yasir VICE PRESIDENT OF OPERATIONS.DIRECTOR OF DONOR RELATIONS Work Phone: [facility] 10-19-2021 11:38-0400 Respiratory rate 16 /min Alejandrina Yasir VICE PRESIDENT OF OPERATIONS.DIRECTOR OF DONOR RELATIONS Work Phone: [facility] 10-19-2021 11:38-0400 SaO2% (BldA) [Mass fraction] 96 % Alejandrina Yasir VICE PRESIDENT OF OPERATIONS.DIRECTOR OF DONOR RELATIONS Work Phone: [facility] 10-19-2021 11:38-0400 Systolic blood pressure 132 mm[Hg] Alejandrina Yasir VICE PRESIDENT OF OPERATIONS.DIRECTOR OF DONOR RELATIONS Work Phone: [facility] 09-01-2021 15:38-0400 Body height 160 cm Alejandrina Yasir VICE PRESIDENT OF OPERATIONS.DIRECTOR OF DONOR RELATIONS Work Phone: [facility] 09-01-2021 15:38-0400 Body weight 88.45 kg Alejandrina Yasir VICE PRESIDENT OF OPERATIONS.DIRECTOR OF DONOR RELATIONS Work Phone: [facility] 09-01-2021 15:38-0400 Diastolic blood pressure 90 mm[Hg] Alejandrina Yasir VICE PRESIDENT OF OPERATIONS.DIRECTOR OF DONOR RELATIONS Work Phone: [facility] 09-01-2021 15:38-0400 Heart rate 69 /min Alejandrina Yasir VICE PRESIDENT OF OPERATIONS.DIRECTOR OF DONOR RELATIONS Work Phone: [facility] 09-01-2021 15:38-0400 SaO2% (BldA) [Mass fraction] 96 % Alejandrina Yasir VICE PRESIDENT OF OPERATIONS.DIRECTOR OF DONOR RELATIONS Work Phone: [facility] 09-01-2021 15:38-0400 Systolic blood pressure 146 mm[Hg] Alejandrina Harvey APRN.DIRECTOR OF DONOR RELATIONS Work Phone: [facility] 02-24-2020 12:13-0400 BMI (Body Mass Index) 34.9 kg/m2 [facility] Solis [facility] Work Phone: 02-24-2020 12:13-0400 Body weight 89.36 kg Mane Solis [facility] [place] Work Phone: 02-24-2020 12:13-0400 BP Diastolic 80 mm[Hg] Mane Solis [facility] Elvie Work Phone: 02-24-2020 12:13-0400 BP Systolic 160 mm[Hg] [facility] Work Phone: 02-24-2020 12:13-0400 BSA (Body Surface Area) 1.92 m2 [facility]ane Solis [facility] Work Phone: 02-04-2020 16:16-0400 BMI (Body Mass Index) 35.43 kg/m2 Rafael Frank III [facility] Work Phone: 02-04-2020 16:16-0400 Body weight 90.72 kg Rafael Frank III [facility] Work Phone: 02-04-2020 16:16-0400 BP Diastolic 78 mm[Hg] Rafael Frank III [facility] Jareth Work Phone: 02-04-2020 16:16-0400 BP Systolic 154 mm[Hg] [facility] Work Phone: 02-04-2020 16:16-0400 BSA (Body Surface Area) 1.93 m2 Rafael Frank [facility] Work Phone: 02-04-2020 16:16-0400 Height 160.02 cm Rafael Templeton Work Phone: 02-04-2020 16:16-0400 1 1 Rafael Templeton Work Phone: Comment on above: Para 02-04-2020 16:16-0400 2 1 Rafael Templeton Work Phone: Comment on above: 01-28-2020 15:21-0400 BMI (Body Mass Index) 35.07 kg/m2 Rafael Templeton Work Phone: 01-28-2020 15:21-0400 Body weight 89.81 kg Rafael Templeton Work Phone: 01-28-2020 15:21-0400 BP Diastolic 92 mm[Hg] Rafael Frank III [facility] [place] Work Phone: 01-28-2020 15:21-0400 BP Systolic 132 mm[Hg] Rafael Frank III [facility] [place] Work Phone: 01-28-2020 15:21-0400 BSA (Body Surface Area) 1.93 m2 Rafael Templeton Work Phone: 01-28-2020 15:21-0400 Height 160.02 cm Rafael Frank III [facility] [place] Work Phone: 01-22-2020 12:56-0400 BMI (Body Mass Index) 35.04 kg/m2 Rafael Templeton Work Phone: 01-22-2020 12:56-0400 Body weight 89.72 kg Rafael Frank III [facility] [place] Work Phone: 01-22-2020 12:56-0400 BP Diastolic 84 mm[Hg] Rafael Frank III [facility] [place] Work Phone: 01-22-2020 12:56-0400 BP Systolic 118 mm[Hg] Rafael Frank III [facility] [place] Work Phone: 01-22-2020 12:56-0400 BSA (Body Surface Area) 1.92 m2 Rafael Templeton Work Phone: 01-22-2020 12:56-0400 Height 160.02 cm Rafael Templeton Work Phone: 01-22-2020 12:56-0400 Pulse (Heart Rate) 75 /min Rafael MendenhallOR TISHA Templeton Work Phone: 01-22-2020 12:56-0400 Respiratory Rate 16 /min Rafael Templeton Work Phone: Encounters Encounter Date Encounter Type Care Provider Facility Start: 11-13-2024 End: 11-13-2024 Emergency department patient visit Dr. Mandeep Houser DO Work Phone: -Emergency Department Work Phone: Start: 11-05-2024 End: 11-05-2024 ambulatory Chasidy Lyn MA [email or web address] Start: 11-05-2024 End: 11-05-2024 Patient encounter procedure Chasidy Lyn MA [email or web address] Comment on above: [facility] Start: 11-03-2024 End: 11-03-2024 Office outpatient visit 25 minutes Pili Wells MD Work Phone: Cardiology Comment on above: Chronic systolic con gestive heart failure (HCC) (Primary Dx); Nonischemic cardiomyopathy (HCC); Coronary artery disease involving [place] coronary artery of [place] heart without angina pectoris; Left bundle branch block; Cardiac resynchronization therapy defibrillator (CUT PLUG PACKER-D) in place Start: 11-03-2024 End: 11-03-2024 Patient encounter procedure Holter/Event Monitor Edenilson Work Phone: Cardiology Comment on above: Cardiac resynchroniz ation therapy defibrillator (CUT PLUG PACKER-D) in place (Primary Dx) Cardiac resynchroniz ation therapy defibrillator (CUT PLUG PACKER-D) in place (Primary Dx); Chronic HFrEF (heart failure with reduced ejection fraction) ([facility]); Medication management Start: 11-03-2024 End: 11-03-2024 ambulatory MANDEEP ALFARORISON Facility:[facility] Start: 11-03-2024 End: 11-03-2024 ambulatory MANDEEP HOUSER Facility:[facility] Start: 10-21-2024 End: 10-21-2024 Patient encounter procedure Mandeep Houser DO Work Phone: [facility] Comment on above: Chronic bilateral th oracic back pain (Primary Dx); Somatic dysfunction of spine, lumbar; Somatic dysfunction of rib; Somatic dysfunction of head region; Somatic dysfunction of spine, cervical; Somatic dysfunction of spine, thoracic Start: 10-21-2024 End: 10-21-2024 ambulatory MANDEEP ALFARORISON Facility:[facility] Start: 09-30-2024 End: 09-30-2024 ambulatory MANDEEP ALFARORISON Facility:[facility] Start: 09-23-2024 End: 09-23-2024 ambulatory MANDEEP ALFARORISON Facility:[facility] Start: 09-15-2024 End: 09-15-20[facility] Start: 09-15-2024 End: 09-15-2024 Patient encounter procedure Dorinda Young MA [facility] Comment on above: Population Health Na vigation Outreach ([facility], High Risk /) Start: 08-27-2024 End: 08-27-2024 Telephone encounter Dilcia Bonilla MD Work Phone: Cardiology Start: 08-25-2024 End: 08-25-2024 ambulatory MANDEEP HOUSER Facility:[facility] Start: 08-25-2024 End: 08-25-2024 Patient encounter procedure Mandeep Houser DO Work Phone: [facility] Comment on above: Chronic bilateral th oracic back pain (Primary Dx); Somatic dysfunction of rib; Somatic dysfunction of pelvic region; Somatic dysfunction of spine, thoracic; Somatic dysfunction of spine, cervical; Somatic dysfunction of head region; Somatic dysfunction of spine, lumbar Start: 08-18-2024 End: 10-18-2024 Follow-up encounter Estelita Lamb APRN.CNP Work Phone: Cardiology Start: 08-15-2024 End: 08-15-2024 ambulatory MANDEEP ALFARORISON Facility:[facility] Start: 08-04-2024 End: 08-04-2024 ambulatory MANDEEP HOUSER Facility:[facility] Start: 08-04-2024 End: 08-04-2024 Patient encounter procedure Mandeep Houser DO Work Phone: Family [facility] [place] Comment on above: Chronic bilateral th oracic back pain (Primary Dx); Somatic dysfunction of rib; Somatic dysfunction of spine, thoracic; Somatic dysfunction of spine, cervical; Somatic dysfunction of head region; Somatic dysfunction of pelvic region Start: 07-21-2024 End: 07-21-2024 ambulatory MANDEEP ALFARORISON Facility:[facility] Start: 07-21-2024 End: 07-21-2024 Patient encounter procedure Mandeep Houser DO Work Phone: [facility] [place] Comment on above: Acute cough (Primary Dx); Vitamin B12 deficiency; Fatigue, unspecified type; Nausea; Hypothyroidism, acquired; Chronic 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); Vitamin D deficiency Start: 07-08-2024 End: 07-08-2024 Subsequent hospital visit by physician [facility] Work Phone: Radiology Comment on above: Acute cough [R05.1] Start: 07-08-2024 End: 07-08-2024 ambulatory MANDEEP HOUSER Facility:[facility] Start: 07-08-2024 End: 07-08-2024 Patient encounter procedure Mandeep Houser DO Work Phone: [facility] [place] Comment on above: Vitamin B12 deficien cy (Primary Dx); Fatigue, unspecified type; Lightheadedness; Acute cough; Chronic 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); Nausea; Hypothyroidism, acquired; Anemia, unspecified type; Vitamin D deficiency; Nonischemic cardiomyopathy (HCC) Start: 07-01-2024 End: 08-01-2024 Telephone encounter Mandeep Elsi Houser DO Work Phone: [facility] Start: 06-20-2024 End: 06-20-2024 ambulatory MANDEEP ALFARORISON Facility:[facility] Start: 06-20-2024 End: 06-20-2024 Patient encounter procedure Mandeep Alfarorison DO Work Phone: [facility] [place] Comment on above: Chronic bilateral th oracic back pain (Primary Dx); Somatic dysfunction of rib; Somatic dysfunction of head region; Somatic dysfunction of spine, thoracic; Somatic dysfunction of spine, lumbar; Somatic dysfunction of spine, cervical; Somatic dysfunction of pelvic region Start: 05-30-2024 End: 05-30-2024 Patient encounter procedure Mandeep Alfarorison DO Work Phone: [facility] [place] Comment on above: Chronic bilateral th oracic back pain (Primary Dx); Somatic dysfunction of rib; Somatic dysfunction of spine, lumbar; Somatic dysfunction of spine, thoracic; Somatic dysfunction of spine, cervical; Somatic dysfunction of pelvic region; Somatic dysfunction of head region Start: 05-30-2024 End: 05-30-2024 ambulatory MANDEEP HOUSER Facility:[facility] Start: 05-12-2024 End: 05-12-2024 Patient encounter procedure Mandeep Elsi AlfaroHouser DO Work Phone: [facility] [place] Comment on above: Chronic bilateral th oracic back pain (Primary Dx); Somatic dysfunction of rib; Somatic dysfunction of spine, thoracic; Somatic dysfunction of spine, cervical; Somatic dysfunction of head region; Somatic dysfunction of spine, lumbar Start: 05-12-2024 End: 05-12-2024 ambulatory MANDEEP HOUSER Facility:[facility] Start: 04-22-2024 End: 04-22-2024 ambulatory MANDEEP HOUSER Facility:[facility] Start: 04-22-2024 End: 04-22-2024 Patient encounter procedure Mandeep Elsi AlfaroHouser DO Work Phone: [facility] [place] Comment on above: Suprapubic pain (Richi maritza Dx); Somatic dysfunction of head region; Chronic bilateral thoracic back pain; Somatic dysfunction of rib; Somatic dysfunction of spine, cervical; Somatic dysfunction of spine, thoracic; Somatic dysfunction of pelvic region; Somatic dysfunction of spine, lumbar Start: 04-22-2024 End: 04-22-2024 ambulatory MANDEEP HOUSER Facility:[facility] Start: 04-08-2024 End: 04-08-2024 Refill Mandeep L Houser DO Work Phone: [facility] [place] Comment on above: Refill Request Start: 03-27-2024 End: 03-27-2024 Emergency department patient visit Mandeep Houser Facility:[facility] Start: 03-21-2024 End: 03-24-2024 Telephone encounter Mandeep Houser DO Work Phone: [facility] [place] Comment on above: Medication Problem Start: 03-18-2024 End: 03-18-2024 ambulatory MANDEEP HOUSER Facility:[facility] Start: 03-05-2024 End: 03-06-2024 Telephone encounter Mandeep Houser DO Work Phone: [facility] Start: 02-12-2024 End: 02-12-2024 Patient encounter procedure Mandeep Houser DO Work Phone: [facility] [place] Comment on above: Hypothyroidism, acqu ired (Primary Dx); Chronic bilateral thoracic back pain; Somatic dysfunction of rib; Somatic dysfunction of spine, cervical; Somatic dysfunction of spine, thoracic; Somatic dysfunction of spine, lumbar; Somatic dysfunction of head region Start: 02-12-2024 End: 02-12-2024 ambulatory MANDEEP HOUSER Facility:[facility] Start: 02-07-2024 End: 02-07-2024 ambulatory [facility] Facility:[facility] Start: 02-07-2024 End: 02-07-2024 Patient encounter procedure Angel Castro DO Work Phone: Cardiology Comment on above: Nonischemic cardiomy opathy (HCC) (Primary Dx) Start: 01-29-2024 End: 01-29-2024 ambulatory MANDEEP HOUSER Facility:[facility] Start: 01-29-2024 End: 01-29-2024 Patient encounter procedure Mandeep Houser DO Work Phone: [facility] [place] Comment on above: Hypothyroidism, acqu ired (Primary Dx); Chronic bilateral thoracic back pain; Somatic dysfunction of spine, thoracic; Somatic dysfunction of spine, cervical; Somatic dysfunction of rib; Somatic dysfunction of spine, lumbar; Somatic dysfunction of head region Start: 01-15-2024 End: 01-15-2024 ambulatory MANDEEP HOUSER Facility:[facility] Start: 01-15-2024 End: 01-15-2024 Office outpatient visit 40 minutes Pili Wells MD Work Phone: Cardiology Comment on above: Chronic systolic con gestive heart failure (HCC) (Primary Dx); Nonischemic cardiomyopathy (HCC); Left bundle branch block; Coronary artery disease involving [place] coronary artery of [place] heart without angina pectoris Start: 01-04-2024 End: 01-04-2024 Patient encounter procedure Mandeep Houser DO Work Phone: [facility] Comment on above: Chronic neck pain (P rimary Dx); Chronic bilateral thoracic back pain; Somatic dysfunction of spine, thoracic; Somatic dysfunction of rib; Somatic dysfunction of spine, cervical; Somatic dysfunction of pelvic region; Somatic dysfunction of head region; Somatic dysfunction of spine, lumbar Start: 01-04-2024 End: 01-04-2024 [address] [facility] Facility:[facility] Start: 12-23-2023 ambulatory [facility] Facility:[facility] Start: 12-12-2023 End: 12-12-2023 ambulatory [facility] Facility:[facility] Start: 12-12-2023 End: 12-12-2023 Patient encounter procedure Mandeep Houser DO Work Phone: [facility] Comment on above: Chronic bilateral th oracic back pain (Primary Dx); Somatic dysfunction of head region; Somatic dysfunction of spine, cervical; Somatic dysfunction of rib; Somatic dysfunction of spine, thoracic; Somatic dysfunction of pelvic region Start: 12-12-2023 End: 12-12-2023 ambulatory MANDEEP HOUSER Facility:[facility] Start: 12-06-2023 Telephone encounter Pili ricardo MD Work Phone: Cardiology Start: 12-05-2023 End: 12-05-2023 Subsequent hospital visit by physician [facility] Work Phone: Cardiology Lab Comment on above: Chronic systolic con gestive heart failure (HCC) [I50.22] Start: 11-28-2023 Telephone encounter Mandeep ochoa DO Work Phone: NOC Comment on above: Transition Of Care Start: 11-27-2023 End: 11-27-2023 ambulatory MANDEEP ELDERON Facility:[facility] Start: 11-23-2023 Telephone encounter Rojas Prakash RN NOC Comment on above: Transition Of Care Start: 11-20-2023 Telephone encounter Misty Ascencio RN Cardiology Comment on above: [employer] - O ther (CHF) Start: 11-15-2023 End: 11-18-2023 ambulatory [facility] Facility:[facility] Start: 11-12-2023 End: 12-12-2023 ambulatory [facility] Facility:[facility] Start: 11-07-2023 End: 11-07-2023 Patient encounter procedure Mandeep Houser DO Work Phone: [facility] Comment on above: Acute midline low ba ck pain without sciatica (Primary Dx) Start: 11-07-2023 Telephone encounter Mandeep ochoa DO Work Phone: [facility] Comment on above: Appointment; OMT Start: 11-06-2023 Telephone encounter Mandeep ochoa DO Work Phone: [facility] Comment on above: Results (CT Brain) Start: 11-05-2023 End: 11-11-2023 ambulatory [facility] Facility:[facility] Start: 11-01-2023 ambulatory MANDEEP Calzada HOUSER Facil ity:[facility] Start: 11-01-2023 End: 11-01-2023 Subsequent hospital visit by physician [facility] Work Phone: [facility] Comment on above: Word finding difficu lty [R47.89] Start: 11-01-2023 End: 11-01-2023 Patient encounter procedure Mercedes Vera APRN.DIRECTOR OF DONOR RELATIONS Work Phone: Cardiology Comment on above: Presence of cardiac resynchronization therapy defibrillator (CUT PLUG PACKER-D) (Primary Dx); Non-ischemic cardiomyopathy (HCC); LBBB (left bundle branch block) Start: 10-31-2023 End: 10-31-2023 Patient encounter procedure Mandeep Houser DO Work Phone: [facility] Comment on above: Hypothyroidism, acqu ired (Primary Dx); 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; Word finding difficulty; New onset of headaches after age 50; Leg cramping; Vitamin D deficiency; Anemia, unspecified type; Somatic dysfunction of head region; Somatic dysfunction of spine, cervical; Somatic dysfunction of rib; Chronic bilateral thoracic back pain; Somatic dysfunction of spine, thoracic; Somatic dysfunction of pelvic region Start: 10-30-2023 Telephone encounter Dilcia Bonilla MD Work Phone: Cardiology Start: 10-17-2023 Telephone encounter Rupali Zak chandra VICE PRESIDENT OF OPERATIONS.DIRECTOR OF DONOR RELATIONS Work Phone: [facility] Comment on above: Results Start: 10-15-2023 End: 10-15-2023 Patient encounter procedure Rupali Nascimento MELI.DIRECTOR OF DONOR RELATIONS Work Phone: [facility] Comment on above: Localized swelling o f left foot (Primary Dx); Foot pain, left; 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 Start: 10-11-2023 End: 10-11-2023 Refill Mandeep Houser DO Work Phone: [facility] Comment on above: Refill Request Left Great Toe Pain Start: 10-10-2023 End: 10-12-2023 ambulatory [facility] Facility:[facility] Start: 10-02-2023 End: 10-02-2023 Office outpatient visit 15 minutes Pili Wells MD Work Phone: Cardiology Comment on above: Chronic systolic con gestive heart failure (HCC) (Primary Dx); Left bundle branch block; Nonischemic cardiomyopathy (HCC); Hypertension with heart disease Start: 10-01-2023 End: 10-01-2023 Patient encounter procedure Alejandrina Harvey APRN.DIRECTOR OF DONOR RELATIONS Work Phone: [facility] Comment on above: Acute non-recurrent pansinusitis (Primary Dx) Start: 09-30-2023 Telephone encounter Oliverio Del Cid Work Phone: Podiatry Comment on above: Results Start: 09-25-2023 Telephone encounter Thuy Aguirre APRN.DIRECTOR OF DONOR RELATIONS Work Phone: [facility] Adult Comment on above: Results (FLP) Start: 09-24-2023 End: 09-24-2023 Subsequent hospital visit by physician [facility] Work Phone: Radiology Comment on above: Repetitive stress in jury [X50.3XXA] Start: 09-24-2023 End: 09-24-2023 Patient encounter procedure Oliverio Mata Work Phone: Podiatry Comment on above: Repetitive stress in jury (Primary Dx); Venous insufficiency Start: 09-19-2023 Follow-up encounter Dilcia Bonilla MD Work Phone: [facility] Start: 09-19-2023 Patient encounter procedure Dilcia Bonilla MD Work Phone: [facility] Start: 09-17-2023 Telephone encounter Angel Castro DO Work Phone: Cardiology Comment on above: Patient Question (inga dennison) Results Patient Update Start: 09-13-2023 End: 09-13-2023 Subsequent hospital visit by physician [facility] Work Phone: Radiology Comment on above: Foot pain, left [M79 .672] Start: 09-13-2023 End: 09-13-2023 Patient encounter procedure Alejandrina Harvey APRN.DIRECTOR OF DONOR RELATIONS Work Phone: [facility] Comment on above: Foot pain, left (Richi maritza Dx); Localized swelling of left foot Start: 09-10-2023 End: 09-11-2023 ambulatory [facility] Work Phone: Start: 09-10-2023 End: 09-11-2023 Discharged [facility] Work Phone: Start: 09-06-2023 Encounter for meera l adult medical examination without abnormal findings [facility] Start: 09-05-2023 End: 09-05-2023 Patient encounter procedure Thuy Aguirre APRN.DIRECTOR OF DONOR RELATIONS Work Phone: Cardiology Comment on above: Chronic systolic con gestive heart failure (HCC) (Primary Dx); Nonischemic cardiomyopathy (HCC); Mixed hyperlipidemia; LBBB (left bundle branch block); Presence of cardiac resynchronization therapy defibrillator (CUT PLUG PACKER-D); Primary hypertension; Coronary artery disease involving [place] coronary artery of [place] heart without angina pectoris; Valvular heart disease Start: 09-03-2023 Registered [facility] Work Phone: Start: 08-29-2023 End: 08-29-2023 ambulatory [facility] Work Phone: Start: 08-29-2023 End: 08-29-2023 Patient encounter procedure [facility] Work Phone: Start: 08-29-2023 End: 08-29-2023 ambulatory [facility] Facility:[facility] Start: 08-27-2023 Telephone encounter Alejandrina Johnson APRN.DIRECTOR OF DONOR RELATIONS Work Phone: [facility] Comment on above: Patient Question; Inga moralesnt Update Start: 08-23-2023 Telephone encounter Pili ricardo MD Work Phone: Cardiology Start: 08-22-2023 End: 08-22-2023 Patient encounter procedure Alejandrina Harvey VICE PRESIDENT OF OPERATIONS.DIRECTOR OF DONOR RELATIONS Work Phone: [facility] Comment on above: Vagina, candidiasis (Primary Dx); Burning with urination; 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; Acute cough; Laryngopharyngeal reflux (LPR) Start: 08-07-2023 Follow-up encounter Dilcia Bonilla MD Work Phone: [facility] Start: 08-07-2023 End: 08-07-2023 Patient encounter procedure Dilcia Bonilla MD Work Phone: [facility] Comment on above: LBBB (left bundle br anch block) (Primary Dx); Presence of cardiac resynchronization therapy defibrillator (CUT PLUG PACKER-D); Acute on chronic systolic CHF (congestive heart failure) (HCC) Start: 08-06-2023 Telephone encounter Pili ricardo MD Work Phone: Cardiology Start: 07-26-2023 Telephone encounter Dilcia Bonilla MD Work Phone: Cardiology Comment on above: Patient Update Start: 07-25-2023 Telephone encounter Mandeep ochoa DO Work Phone: Family [facility] [place] Comment on above: Results Refill Request Start: 07-24-2023 End: 07-24-2023 Patient encounter procedure Mandeep Houser DO Work Phone: [facility] [place] Comment on above: Chronic diastolic co ngestive heart failure (HCC) (Primary Dx); Hypothyroidism, acquired; Vitamin D deficiency; Fatigue, unspecified type; Acute hypoxic respiratory failure (HCC); Chronic bronchitis, unspecified chronic bronchitis type (HCC); Atrial fibrillation, unspecified type (HCC); SVT (supraventricular tachycardia) (HCC); Homozygous Factor V Leiden mutation (HCC) Start: 07-20-2023 ambulatory Fitz ramirez RN Work Phone: [facility] Start: 07-20-2023 Telephone encounter Mandeep Millard birdieanh DO Work Phone: NOC Comment on above: Follow Up (All Clear ) Transition Of Care ( TCM Initial [facility] Discharge 07/18/23) Start: 07-17-2023 Telephone encounter Morenita Griffin res, APRN.CNP Work Phone: [facility] Comment on above: Appointment Start: 07-13-2023 End: 07-18-2023 Evaluation and management of inpatient MANDEEP HOUSER Facility:[facility] Start: 07-13-2023 Telephone encounter Rahul messina MD Work Phone: [facility] Adult Comment on above: Hospital To Hospital Start: 07-10-2023 End: 07-13-2023 Evaluation and management of inpatient REMINGTON CAI Facility:[facility] Start: 06-12-2023 End: 06-12-2023 ambulatory [facility] Facility:[facility] Start: 05-17-2023 End: 05-17-2023 Subsequent hospital visit by physician Joe [facility] Work Phone: Radiology Comment on above: Chronic cough [R05.3 ] Start: 04-26-2023 Telephone encounter Mandeep ochoa DO Work Phone: [facility] [place] Comment on above: Results Start: 04-17-2023 Telephone encounter Mandeep ochoa DO Work Phone: [facility] [place] Start: 04-09-2023 End: 04-09-2023 Patient encounter procedure Santo Oneill MD Work Phone: Cardiology Comment on above: Primary hypertension ; Chronic diastolic congestive heart failure (HCC) Start: 03-01-2023 Telephone encounter Mandeep ochoa DO Work Phone: Family [facility] [place] Comment on above: Results Start: 01-09-2023 End: 01-09-2023 Refill Santo Oneill MD Work Phone: Cardiology Comment on above: Refill Request Hypothyroidism, unsp ecified type (Primary Dx); Somatic dysfunction of spine, cervical; Somatic dysfunction of rib; Somatic dysfunction of head region; Chronic bilateral thoracic back pain; Chronic neck pain; Neck fullness Start: 12-22-2022 Telephone encounter Mandeep ochoa DO Work Phone: [facility] [place] Comment on above: Results Start: 12-19-2022 Telephone encounter Mandeep ochoa DO Work Phone: Family [facility] [place] Comment on above: Results Start: 12-14-2022 End: 12-14-2022 Subsequent hospital visit by physician [facility] [place] Work Phone: Radiology Comment on above: SOB (shortness of br eath) [R06.02] Start: 10-24-2022 Telephone encounter Oliverio Cross g[place] Work Phone: Podiatry Comment on above: Orders Start: 10-15-2022 Telephone encounter Estelita hess VICE PRESIDENT OF OPERATIONS.DIRECTOR OF DONOR RELATIONS Work Phone: [facility] Comment on above: Results Start: 10-14-2022 End: 10-14-2022 Patient encounter procedure Shanellraghav Cox VICE PRESIDENT OF OPERATIONS.DIRECTOR OF DONOR RELATIONS Work Phone: [facility] Comment on above: Acute cough (Primary Dx); Sore throat Start: 10-10-2022 End: 10-10-2022 Patient encounter procedure Mandeep Eldervalerie MENDOZA Work Phone: [facility] [place] Comment on above: Chronic bilateral th oracic back pain (Primary Dx); Somatic dysfunction of spine, cervical; Somatic dysfunction of rib; Somatic dysfunction of head region; Chronic neck pain; Somatic dysfunction of spine, thoracic Start: 09-21-2022 Telephone encounter Oliverio Del Cid Work Phone: Podiatry Comment on above: Orders (Shana masonjeffy cs) Start: 09-11-2022 Telephone encounter Oliverio Del Cid Work Phone: Podiatry Comment on above: Orders Start: 09-04-2022 End: 09-04-2022 Subsequent hospital visit by physician [facility]) Work Phone: Cat Scan Comment on above: Abdominal distension (gaseous) [R14.0] Start: 08-22-2022 End: 08-22-2022 Patient encounter procedure Mandeep Houser DO Work Phone: [facility] [place] Comment on above: Chronic neck pain (P rimary Dx); Abdominal distension (gaseous); Nausea; RUQ abdominal pain; Somatic dysfunction of spine, cervical; Somatic dysfunction of rib; Somatic dysfunction of head region Start: 08-14-2022 End: 08-14-2022 Patient encounter procedure Santo Oneill MD Work Phone: Cardiology Comment on above: Primary hypertension (Primary Dx); Palpitations; Mixed hyperlipidemia Start: 08-03-2022 [facility] Start: 07-26-2022 Telephone encounter Alejandrina Johnson APRN.DIRECTOR OF DONOR RELATIONS Work Phone: [facility] [place] Comment on above: Results Start: 07-25-2022 End: 07-25-2022 Subsequent hospital visit by physician [facility] D[facility] Work Phone: Radiology Comment on above: Screening for osteop orosis [Z13.820] Start: 07-21-2022 End: 07-21-2022 Patient encounter procedure Alejandrina Harvey APRN.DIRECTOR OF DONOR RELATIONS Work Phone: [facility] Comment on above: Hypothyroidism, unsp ecified type (Primary Dx); Primary hypertension; Mixed hyperlipidemia; Vitamin D deficiency; Asymptomatic menopause; Encounter for vitamin deficiency screening; Screening for diabetes mellitus; Elevated glucose; Encounter for immunization; Screening for osteoporosis; Encounter for screening for osteoporosis Start: 07-18-2022 End: 07-18-2022 Patient encounter procedure Mandeep Houser DO Work Phone: [facility] Comment on above: Chronic right-sided thoracic back pain (Primary Dx); Somatic dysfunction of spine, cervical; Somatic dysfunction of spine, thoracic; Somatic dysfunction of rib; Rib pain on right side Start: 07-03-2022 End: 07-03-2022 Patient encounter procedure Mandeep Houser DO Work Phone: [facility] Comment on above: Chronic bilateral th oracic back pain (Primary Dx); Somatic dysfunction of rib; Somatic dysfunction of spine, thoracic; Somatic dysfunction of spine, cervical; Rib pain on right side; Somatic dysfunction of head region Start: 05-24-2022 Telephone encounter Mandeep ochoa DO Work Phone: [facility] [place] Start: 05-22-2022 End: 05-22-2022 Patient encounter procedure Mandeep Houser DO Work Phone: [facility] [place] Comment on above: Dysuria (Primary Dx) ; Urticaria; Food allergy; Allergic urticaria; Somatic dysfunction of spine, thoracic; Somatic dysfunction of rib; Somatic dysfunction of spine, cervical; Rib pain on right side; Somatic dysfunction of head region Start: 05-16-2022 Refill Santo nOeill MD Work Phone: Cardiology Comment on above: Refill Request Start: 05-03-2022 Telephone encounter Mandeep ochoa DO Work Phone: [address] [place] [address] Comment on above: Patient Question Start: 05-03-2022 End: 05-03-2022 Patient encounter procedure Mandeep Houser DO Work Phone: [facility] Comment on above: Rib pain on right si de (Primary Dx); Somatic dysfunction of spine, cervical; Somatic dysfunction of rib; Somatic dysfunction of spine, thoracic Start: 04-05-2022 ambulatory No Pcp (Historical) Ref erring Physician Start: 03-31-2022 ambulatory No Pcp (Historical) Ref erring Physician Start: 03-13-2022 Telephone encounter Alejandrina Johnson APRN.CNP Work Phone: [facility] Comment on above: Results Start: 03-10-2022 Telephone encounter Alejandrina Johnson APRN.CNP Work Phone: [facility] [place] Comment on above: Consult Start: 02-13-2022 End: 02-13-2022 Patient encounter procedure Santo Oneill MD Work Phone: Cardiology Comment on above: Cardiomegaly (Primar y Dx); Primary hypertension; Chronic diastolic congestive heart failure (HCC); Palpitations; Acute on chronic systolic CHF (congestive heart failure) (HCC) Start: 01-20-2022 End: 01-20-2022 Patient encounter procedure Alejandrina Harvey APRN.CNP Work Phone: [facility] Comment on above: Routine physical exa mination (Primary Dx); Primary hypertension; Mixed hyperlipidemia; Coronary artery disease involving [place] coronary artery of [place] heart with other form of angina pectoris (HCC); Vitamin D deficiency; Hypothyroidism, unspecified type Start: 01-20-2022 End: 01-20-2022 Physical examination Alejandrina Harvey APRN.CNP Work Phone: [facility] Start: 01-13-2022 Telephone encounter Estelita Culp APRN.CNP Work Phone: Cardiology Comment on above: Results Start: 12-27-2021 Refill Mandeep Gamble son DO Work Phone: [facility] Comment on above: Refill Request Start: 12-19-2021 End: 12-19-2021 Patient encounter procedure Sincere Perkins PA-C Work Phone: General Surgery Comment on above: Diverticulosis (Prim moni Dx); History of Clostridium difficile colitis; Abdominal bloating Start: 12-08-2021 Telephone encounter Santo Oneill MD Work Phone: Cardiology Comment on above: Patient Question Start: 12-05-2021 End: 12-05-2021 Subsequent hospital visit by physician Wes Marshall MD Work Phone: [facility] Endoscopy Comment on above: Abdominal bloating [ R14.0] Start: 11-29-2021 Telephone encounter Santo Oneill MD Work Phone: Cardiology Comment on above: Medication Problem Start: 11-10-2021 Orders Only Santo Oneill MD Work Phone: Cardiology Start: 11-02-2021 Telephone encounter Sincere MAC-C Work Phone: General Surgery Comment on above: 12/05 COLON/ASC MEDIN A Start: 11-02-2021 End: 11-02-2021 Patient encounter procedure Sincere MAC-Joaquín Work Phone: General Surgery Comment on above: Generalized abdomina l pain (Primary Dx); Bloating; Belching; History of colonic polyps; Chronic diastolic congestive heart failure (HCC) Start: 11-01-2021 ambulatory Mandeep Gamble son DO Work Phone: [facility] Start: 11-01-2021 Patient encounter procedure Mandeep Houser DO Work Phone: General Surgery Comment on above: Outpatient [place] [facility] Start: 10-27-2021 Telephone encounter Estelita Culp APRN.CNP Work Phone: [facility] Cardiology Comment on above: Results Start: 10-27-2021 End: 10-27-2021 Subsequent hospital visit by physician [facility]) Work Phone: Cat Scan Comment on above: Diverticulitis [K57. 92] Start: 10-24-2021 ambulatory Mandeep Gamble son DO Work Phone: [facility] Start: 10-24-2021 Patient encounter procedure Mandeep Houser DO Work Phone: [facility] [place] Comment on above: Outpatient [place] Start: 10-24-2021 Telephone encounter Estelita Culp MELI.DIRECTOR OF DONOR RELATIONS Work Phone: [facility] Comment on above: Preparations For Pro cedures Start: 10-19-2021 End: 10-19-2021 Patient encounter procedure Alejandrina Harvey MELI.DIRECTOR OF DONOR RELATIONS Work Phone: [facility] Comment on above: Diverticulitis (Prim moni Dx); RLQ abdominal pain; Lower abdominal pain Start: 09-21-2021 End: 09-21-2021 Patient encounter procedure Mandeep Houser DO Work Phone: [facility] Comment on above: Rib pain (Primary Dx ); Somatic dysfunction of head region; Somatic dysfunction of spine, cervical; Somatic dysfunction of rib; Somatic dysfunction of spine, thoracic; Neck pain Start: 09-19-[address] moyatoby MELI.DIRECTOR OF DONOR RELATIONS Work Phone: [facility] Comment on above: Results Start: 09-02-2021 Telephone encounter Alejandrina leslie MELI.DIRECTOR OF DONOR RELATIONS Work Phone: [facility] Comment on above: Results Start: 09-01-2021 End: 09-01-2021 Subsequent hospital visit by physician [facility] Work Phone: Radiology Comment on above: Chronic left shoulde r pain [M25.512, G89.29] Start: 09-01-2021 End: 09-01-2021 Patient encounter procedure Alejandrina Harvey MELI.DIRECTOR OF DONOR RELATIONS Work Phone: [facility] Comment on above: Chronic left shoulde r pain (Primary Dx); Left elbow pain; Primary hypertension; Mixed hyperlipidemia; Hypokalemia; Screening for lipid disorders; Screening for diabetes mellitus; Screening for thyroid disorder; Encounter for vitamin deficiency screening; Body mass index (BMI) 34.0-34.9, adult ; Abnormal finding of blood chemistry, unspecified Start: 08-29-2021 Telephone encounter Mandeep ochoa DO Work Phone: [facility] Comment on above: Appointment Start: 08-23-2021 ambulatory Farzana Rodriguez LPN [facility] Start: 08-15-2021 Documentation procedure Mammog hermann Coordinator [facility] Start: 08-15-2021 Letter encounter Mammography Coordinator [facility] Department Start: 08-15-2021 End: 08-15-2021 Subsequent hospital visit by physician Screen Mammo [facility] Mammogram Comment on above: Encounter for screen ing mammogram for breast cancer [Z12.31] Start: 08-09-2021 End: 08-09-2021 ambulatory Estelita Maradiaga PT Work Phone: [facility] Comment on above: Left shoulder pain, unspecified chronicity; Lateral epicondylitis of left elbow Start: 01-05-2021 End: 01-05-2021 Subsequent hospital visit by physician [facility] [place] Work Phone: Radiology Comment on above: Chronic pain of righ t ankle [M25.571, G89.29] Start: 08-02-2020 End: 08-02-2020 Subsequent hospital visit by physician [facility] Work Phone: Radiology Comment on above: Great toe pain, left [M79.675] Start: 04-27-2020 End: 04-27-2020 Subsequent hospital visit by physician Susi Cardenas Radiology Comment on above: Abnormal electrocard iogram [R94.31] Start: 02-24-2020 Patient encounter procedure Mane Solis [facility] Work Phone: Start: 02-04-2020 Patient encounter procedure Rafael Frank III [facility] Work Phone: Start: 01-28-2020 Patient encounter procedure Rafael Frank III [facility] Work Phone: Start: 01-22-2020 Patient encounter procedure Rafael Frank III [facility] Work Phone: Start: 10-21-2019 Patient encounter procedure [facility] Frank [facility] [place] Work Phone: Start: 07-24-2019 Patient encounter procedure Rafael Frank III [facility] [place] Work Phone: Start: 07-22-2019 Patient encounter procedure Rafael [place] Work Phone: Start: 03-06-2019 Patient encounter procedure Rafael [place] Work Phone: Start: 01-23-2019 Patient encounter procedure Rafael [place] Work Phone: Start: 12-02-2018 Patient encounter procedure Rafael [place] Work Phone: Start: 04-22-2018 Patient encounter procedure Rafael [place] Work Phone: Start: 04-15-2018 Patient encounter procedure Rafael [place] Work Phone: Start: 01-24-2018 Patient encounter Rafael Whalen aux Facility:[id number] Start: 09-08-2017 Patient encounter Rafael Whalen aux Facility:[id number] Start: 08-22-2017 Patient encounter Rafael Whalen aux Facility:[id number] Start: 07-25-2017 Patient encounter Rafael Whalen aux Facility:[id number] Start: 07-06-2017 Patient encounter Rafael Whalen aux Facility:[id number] Start: 03-08-2017 Patient encounter Rafael Whalen aux Facility:[id number] Procedures Date Procedure Procedure Detail Performing Clinician Start: 11-13-2024 CT of chest without contrast Dr. Mandeep Houser DO Work Phone: Start: 11-13-2024 CT of head without contrast Dr. Mandeep ochoa DO Work Phone: Start: 11-13-2024 Urnls dip stick/tablet reagent auto microscopy Dr. Mandeep Houser DO Work Phone: Start: 11-13-[address] Tran Houser DO Work Phone: Start: 11-13-2024 Plain x-ray of hand Dr. Mandeep Houser DO Work Phone: Start: 11-13-2024 Plain chest X-abdi Houser DO Work Phone: Start: 11-03-2024 Ecg routine ecg w/least 12 lds i&r only Pili Wells MD Work Phone: Start: 04-22-2024 Urnls dip stick/tablet rgnt auto w/o microscopy Mandeep Houser DO Work Phone: Start: 01-15-2024 Ecg routine ecg w/least 12 lds i&r only [facility] Start: 12-05-2023 Echo tthrc r-t 2d w/wom-mode compl spec&colr d Pili Wells MD Work Phone: Start: 11-01-2023 Ct head/brain w/o contrast material Neville Houser DO Work Phone: Start: 10-31-2023 Adult depression screening assessment [facility] Work Phone: Start: 09-19-2023 ICD REMOTE CHECK Dilcia Bonilla MD Work Phone: Start: 09-13-2023 Radex foot complete minimum 3 views Kari Harvey VICE PRESIDENT OF OPERATIONS.DIRECTOR OF DONOR RELATIONS Work Phone: Start: 08-22-2023 Urnls dip stick/tablet rgnt auto w/o microscopy Alejandrina Harvey VICE PRESIDENT OF OPERATIONS.DIRECTOR OF DONOR RELATIONS Work Phone: Start: 08-07-2023 ICD CLINIC CHECK Dilcia Bonilla MD Work Phone: Start: 05-17-2023 Radiologic exam chest 2 views Mandeep ochoa DO Work Phone: Start: 04-09-2023 End: 04-09-2023 Ecg routine ecg w/least 12 lds i&r only [facility] Provider Start: 12-14-2022 Radiologic exam chest 2 views Mandeep ochoa DO Work Phone: Start: 10-14-2022 STREP A MOLECULAR (POC) Sulma Brantley PA-C Work Phone: Start: 09-04-2022 Ct abdomen & pelvis w/contrast material Mandeep Houser DO Work Phone: Start: 07-25-2022 Dxa bone density study 1/> sites axial skel Alejandrina Harvey VICE PRESIDENT OF OPERATIONS.DIRECTOR OF DONOR RELATIONS Work Phone: Start: 12-05-2021 Colonoscopy flx dx w/collj spec when pfrmd Sincere Perkins PA-C Work Phone: Start: 12-05-2021 Esophagogastroduodenoscopy transoral diagnostic Sincere Perkins PA-C Work Phone: Start: 12-05-2021 Colonoscopy Wes Marshall MD Work Phone: Start: 10-27-2021 Ct abdomen & pelvis w/contrast material Alejandrina Harvey APRN.DIRECTOR OF DONOR RELATIONS Work Phone: Start: 09-01-2021 Radex elbow 2 views Alejandrina Harvey APRN.DIRECTOR OF DONOR RELATIONS Work Phone: Start: 08-15-2021 End: 08-15-2021 Screening mammography bi 2-view breast inc cad Maycol Valladares MD Work Phone: Start: 01-05-2021 Radex ankle complete minimum 3 views Maycol Valladares MD Work Phone: Start: 12-09-2020 Adult depression screening assessment Estelita Maradiaga PT Work Phone: Start: 08-09-2020 Mammography Estelitaanne Maradiaga PT Work Phone: Start: 08-02-2020 Radex toe minimum 2 views Jamari chavez MD Work Phone: Start: 04-29-2020 Follow-up visit Start: 04-27-2020 Myocardial spect multiple studies Galen Heaton MD Work Phone: Start: 02-04-2020 Culture bacterial quanttative colony count urine Rafael Frank III Start: 02-04-2020 Urnls dip stick/tablet rgnt auto w/o microscopy Rafael Frank III Start: 01-22-2020 Follow-up visit Start: 07-24-2019 Follow-up visit Start: 12-18-2014 Colonoscopy Estelita Maradiaga PT Work Phone: Ligation of fallopian tube W gabrielle Zac III Operative procedure on foot Rafael Zac III Plan of Treatment Date Care Activity Detail Author Start: 07-08-2027 Diabetes Screening Diabetes Screening [facility] Start: 04-22-2027 Diabetes Screening Diabetes Screening [facility] Start: 01-12-2027 LIPID SCREEN LIPID SCREEN [facility] Start: 12-11-2026 Diabetes Screening Diabetes Screening [facility] Start: 12-05-2026 Colonoscopy COLONOSCOPY [facility] Start: 12-05-2026 COLORECTAL CANCER SCREENING COLORECTAL CANCER SCREENING [facility] Start: 11-17-2026 Diabetes Screening Diabetes Screening [facility] Start: 10-14-2026 Diabetes Screening Diabetes Screening [facility] Start: 09-19-2026 Diabetes Screening Diabetes Screening [facility] Start: 09-14-2026 LIPID SCREEN LIPID SCREEN [facility] Start: 08-21-2026 Diabetes Screening Diabetes Screening [facility] Start: 07-23-2026 Diabetes Screening Diabetes Screening [facility] Start: 07-17-2026 Diabetes Screening Diabetes Screening [facility] Start: 07-10-2026 Diabetes Screening Diabetes Screening [facility] Start: 02-27-2026 Diabetes Screening Diabetes Screening [facility] Start: 12-22-2025 LIPID SCREEN LIPID SCREEN [facility] Start: 12-14-2025 DIABETES SCREEN DIABETES SCREEN [facility] Start: 12-14-2025 Diabetes Screening Diabetes Screening [facility] Start: 10-21-2025 Annual PCP Team Chronic Disease Visit Annual PCP Team Chronic Disease Visit [facility] Start: 09-30-2025 Annual PCP Team Chronic Disease Visit Annual PCP Team Chronic Disease Visit [facility] Start: 08-25-2025 Annual PCP Team Chronic Disease Visit Annual PCP Team Chronic Disease Visit [facility] Start: 08-04-2025 Annual PCP Team Chronic Disease Visit Annual PCP Team Chronic Disease Visit [facility] Start: 07-21-2025 Annual PCP Team Chronic Disease Visit Annual PCP Team Chronic Disease Visit [facility] Start: 07-21-2025 DIABETES SCREEN DIABETES SCREEN [facility] Start: 07-08-2025 Annual PCP Team Chronic Disease Visit Annual PCP Team Chronic Disease Visit [facility] Start: 07-08-2025 BP Controlled (<130/80) BP Controlled (<130/80) [facility] in Start: 06-20-2025 Annual PCP Team Chronic Disease Visit Annual PCP Team Chronic Disease Visit [facility] Start: 05-30-2025 Annual PCP Team Chronic Disease Visit Annual PCP Team Chronic Disease Visit [facility] Start: 05-22-2025 DIABETES SCREEN DIABETES SCREEN [facility] Start: 05-20-2025 End: 05-20-2025 Patient encounter procedure 05/20/2025 2:00 PM EST Office Visit Cardiology [address] [place] [address] [place] [address] [place], [place] [id number] 6 months follow up Cardiology Comment on above: 6 months follow up Start: 05-12-2025 Annual PCP Team Chronic Disease Visit Annual PCP Team Chronic Disease Visit [facility] Start: 04-22-2025 Annual PCP Team Chronic Disease Visit Annual PCP Team Chronic Disease Visit [facility] Start: 03-09-2025 End: 03-09-2025 Patient encounter procedure 03/09/2025 2:00 PM EDT Office Visit Cardiology [address] [place] [address] Santo Oneill MD [address] [facility] [address] [place], [place] [id number] 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]; Nonischemic cardiomyopathy (HCC) [I42.8] Cardiology Comment on above: 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]; Nonischemic cardiomyopathy (HCC) [I42.8] Start: 02-11-2025 Annual PCP Team Chronic Disease Visit Annual PCP Team Chronic Disease Visit [facility] Start: 01-28-2025 Annual PCP Team Chronic Disease Visit Annual PCP Team Chronic Disease Visit [facility] Start: 01-14-2025 BP Controlled (<130/80) BP Controlled (<130/80) [facility] Start: 01-12-2025 DIABETES SCREEN DIABETES SCREEN [facility] Start: 01-03-2025 Annual PCP Team Chronic Disease Visit Annual PCP Team Chronic Disease Visit [facility] Start: 12-11-2024 Annual PCP Team Chronic Disease Visit Annual PCP Team Chronic Disease Visit [facility] Start: 11-24-2024 End: 11-24-2024 Patient encounter procedure 11/24/2024 2:00 PM EDT Office Visit [facility] [address] [place] [address] Mandeep Houser DO [address] [place] [address] OMT Family [facility] [place] Comment on above: OMT Start: 11-21-2024 End: 11-21-2024 Patient encounter procedure 11/21/2024 11:20 AM EDT Office Visit Cardiology [address] [place] [id number] Álvaro Lobo MD [address] [place] [address] follow up Cardiology Comment on above: follow up Start: 11-13-2024 Incentive spirometry [facility] Start: 11-13-2024 End: 11-13-2024 [facility] Start: 11-06-2024 Annual PCP Team Chronic Disease Visit Annual PCP Team Chronic Disease Visit [facility] Start: 11-04-2024 End: 11-04-2024 Patient encounter procedure Cardiology Comment on above: medtronic annual annual medtronic ck medtronic annual ck 9 months follow up Start: 11-03-2024 End: 11-03-2024 Patient encounter procedure Cardiology Comment on above: annual device check+ HOP SORTER annual device check+ [place] 9m Start: 10-31-2024 BP Controlled (<130/80) BP Controlled (<130/80) [facility] in Start: 10-30-2024 Annual PCP Team Chronic Disease Visit Annual PCP Team Chronic Disease Visit [facility] Start: 10-30-2024 Anxiety Screening Anxiety Screening [facility] Start: 10-30-2024 Depression Screening Depression Screening [facility] Start: 10-27-2024 DIABETES SCREEN DIABETES SCREEN [facility] Start: 10-21-2024 End: 10-21-2024 Patient encounter procedure 10/21/2024 3:20 PM EDT Office Visit [facility] [address] [place] [address] Mandeep Houser DO [address] [facility] [place] MD [id number] OMT Family [facility] [place] Comment on above: OMT Start: 10-14-2024 Annual PCP Team Chronic Disease Visit Annual PCP Team Chronic Disease Visit [facility] Start: 10-14-2024 RSV Vaccine (1 - 1-dose 60+ series) RSV Vaccine (1 - 1-dose 60+ series) [facility] Comment on above: Postponed from 2006 (Declined at t his time) Start: 10-14-2024 RSV Vaccine (1 - 1-dose 75+ series) RSV Vaccine (1 - 1-dose 75+ series) [facility] Comment on above: Postponed from 2021 (Declined at t his time) Start: 10-14-2024 Shingrix Vaccine (1 of 2) Shingrix Vaccine (1 of 2) [facility] Comment on above: Postponed from 1996 (Declined at t his time) Start: 10-14-2024 Urine microalbumin profile DTaP,Tdap,Td Vaccine (1 - Tdap) [facility] Comment on above: Postponed from 1965 (Declined at t his time) Start: 10-14-2024 End: 10-14-2024 Patient encounter procedure Cardiology Comment on above: 9 months follow up Start: 09-30-2024 Annual PCP Team Chronic Disease Visit Annual PCP Team Chronic Disease Visit [facility] Start: 09-23-2024 End: 09-23-2024 Patient encounter procedure 09/23/2024 3:40 PM EDT Office Visit Family [facility] [address] [facility] [place] [place] [address] Mandeep Houser, [address] [facility] [place] [address] OMT Family [facility] Comment on above: OMT Start: 09-19-2024 Hepatitis B surface antibody level LDL Cholesterol [facility] Start: 09-14-2024 DIABETES SCREEN DIABETES SCREEN [facility] Start: 09-12-2024 Annual PCP Team Chronic Disease Visit Annual PCP Team Chronic Disease Visit [facility] Start: 08-25-2024 End: 08-25-2024 Patient encounter procedure 08/25/2024 3:40 PM EDT Office Visit Family [facility] [address] [place] [address] Mandeep Houser DO [address] [facility] [place] [address] OMT [facility] [place] Comment on above: OMT Start: 08-22-2024 End: 08-22-2024 Patient encounter procedure 08/22/2024 11:20 AM EDT Office Visit Cardiology [address] [address] Álvaro Lobo MD [address] [place] [address] follow up Cardiology Comment on above: follow up Start: 08-21-2024 Annual PCP Team Chronic Disease Visit Annual PCP Team Chronic Disease Visit [facility] Start: 08-20-2024 End: 08-20-2024 Patient encounter procedure 08/20/2024 1:00 PM EDT Office Visit Cardiology [address] [address] Angel Castro DO [address] [place] [address] 6 month follow up Cardiology Comment on above: 6 month follow up Start: 08-15-2024 End: 08-15-2024 Patient encounter procedure 08/15/2024 1:00 PM EDT Office Visit Cardiology [address] [place] [address] Nonischemic cardiomyopathy (HCC) [I42.8] Cardiology Comment on above: Nonischemic cardiomyopathy (HCC) [I42.8] Start: 08-06-2024 BP Controlled (<130/80) BP Controlled (<130/80) [facility] in Start: 08-06-2024 End: 02-06-2025 Echocardiography ECHO Cardiology Routine Nonischemic cardiomyopathy (HCC) Expected: 08/06/2024, Expires: 02/06/2025 [facility] Work Phone: Comment on above: Expected: 08/06/2024, Expires: Start: 08-06-2024 End: 08-06-2024 Patient encounter procedure 08/06/2024 11:20 AM EDT Office Visit Cardiology [address] [address] Nonischemic cardiomyopathy (HCC) [I42.8] Cardiology Comment on above: Nonischemic cardiomyopathy (HCC) [I42.8] Start: 08-04-2024 End: 08-04-2024 Patient encounter procedure 08/04/2024 2:00 PM EDT Office Visit [facility] [address] [facility] [place] [address] Mandeep Houser DO [address] [facility] [place] [address] Omt [facility] [place] Comment on above: Omt Start: 07-23-2024 Annual PCP Team Chronic Disease Visit Annual PCP Team Chronic Disease Visit [facility] Start: 07-21-2024 End: 07-21-2024 Patient encounter procedure 07/21/2024 4:00 PM EDT Office Visit Family [facility] [address] [facility] [place] [place] [address] Mandeep Houser, [address] [facility] [place] [address] 2 week follow up Family [facility] Comment on above: 2 week follow up Start: 07-08-2024 End: 10-07-2024 25-hydroxyvitamin D3 [Mass/volume] in Serum or Plasma [facility] Comment on above: Expected: 07/08/2024, Expires: Start: 07-08-2024 End: 10-07-2024 Cobalamin (Vitamin B12) [Mass/volume] in Serum or Plasma [facility] Comment on above: Expected: 07/08/2024, Expires: Start: 07-08-2024 End: 10-07-2024 Comprehensive metabolic 2000 panel - Serum or Plasma [facility] Comment on above: Expected: 07/08/2024, Expires: Start: 07-08-2024 End: 10-07-2024 Magnesium [Mass/volume] in Serum or Plasma [facility] Comment on above: Expected: 07/08/2024, Expires: Start: 07-08-2024 End: 10-07-2024 Natriuretic peptide.B prohormone N-Terminal [Mass/volume] in Serum or Plasma [facility] Comment on above: Expected: 07/08/2024, Expires: Start: 07-08-2024 End: 07-08-2024 Patient encounter procedure 07/08/2024 2:00 PM EST Office Visit [facility] [place] [address] [place] [address] Mandeep Houser DO [address] [place] [address] OMT [facility] Comment on above: OMT Start: 07-08-2024 End: 10-07-2024 Thyrotropin [Units/volume] in Serum or Plasma [facility] Comment on above: Expected: 07/08/2024, Expires: Start: 07-08-2024 End: 10-07-2024 Thyroxine (T4) free [Mass/volume] in Serum or Plasma [facility] Comment on above: Expected: 07/08/2024, Expires: Start: 07-08-2024 End: 10-07-2024 Urinalysis complete panel - Urine [facility] Work Phone: Comment on above: Expected: 07/08/2024, Expires: Start: 06-20-2024 End: 06-20-2024 Patient encounter procedure 06/20/2024 2:20 PM EST Office Visit [facility] [place] [address] [place] [address] Mandeep Houser, [address] [place] [address] OMT [facility] [place] Comment on above: OMT Start: 06-12-2024 BP Controlled (<130/80) BP Controlled (<130/80) [facility] Start: 05-30-2024 End: 05-30-2024 Patient encounter procedure 05/30/2024 3:20 PM EST Office Visit [facility] [place] [address] [place] [address] Mandeep Houser, [address] [place] [address] OMT [facility] [place] Comment on above: OMT Start: 05-14-2024 Advance Directive Discussion Advance Directive Discussion [facility] Start: 05-12-2024 End: 05-12-2024 Patient encounter procedure 05/12/2024 3:20 PM EST Office Visit [facility] [address] [facility] [place] [id number] Mandeep Houser, DO [address] [facility] [place] [address] OMT [facility] Comment on above: OMT Start: 04-22-2024 End: 07-22-2024 Bacteria identified in Urine by Culture URINE CULTURE Microbiology Routine Suprapubic pain Expected: 04/22/2024, Expires: 07/22/2024 [facility] Work Phone: Comment on above: Expected: 04/22/2024, Expires: 5 Start: 04-22-2024 End: 07-22-2024 C reactive protein [Mass/volume] in Serum or Plasma [facility] Comment on above: Expected: 04/22/2024, Expires: 5 Start: 04-22-2024 End: 07-22-2024 Comprehensive metabolic 2000 panel - Serum or Plasma [facility] Comment on above: Expected: 04/22/2024, Expires: 5 Start: 04-22-2024 End: 07-22-2024 Lipase [Enzymatic activity/volume] in Serum or Plasma [facility] Comment on above: Expected: 04/22/2024, Expires: Start: 04-22-2024 End: 04-22-2024 Patient encounter procedure 04/22/2024 2:00 PM EST Office Visit [facility] [place] [address] [place] [address] Mandeep Houser, DO [address] [place] [address] OMT [facility] [place] Comment on above: OMT Start: 04-17-2024 Annual PCP Team Chronic Disease Visit Annual PCP Team Chronic Disease Visit [facility] Start: 03-18-2024 End: 03-18-2024 Patient encounter procedure 03/18/2024 2:00 PM EST Office Visit [facility] [place] [address] [place] [address] Mandeep Houser, DO [address] [place] [address] OMT [facility] [place] Comment on above: OMT Start: 02-12-2024 End: 02-12-2024 Patient encounter procedure 02/12/2024 2:00 PM EDT Office Visit [facility] [place] [address] [place] [id number] Mandeep Houser, DO [address] [place] [address] OMT [facility] [place] Comment on above: OMT Start: 02-12-2024 End: 05-13-2024 Thyrotropin [Units/volume] in Serum or Plasma [facility] Work Phone: Comment on above: Expected: 02/12/2024, Expires: Start: 02-12-2024 End: 05-13-2024 Thyroxine (T4) free [Mass/volume] in Serum or Plasma [facility] Comment on above: Expected: 02/12/2024, Expires: Start: 02-12-2024 End: 05-13-2024 Triiodothyronine (T3) Free [Mass/volume] in Serum or Plasma [facility] Comment on above: Expected: 02/12/2024, Expires: Start: 02-07-2024 End: 02-07-2024 Patient encounter procedure 02/07/2024 2:20 PM EDT Office Visit Cardiology [address] [address] Angel Castro DO [address] [place] [address] 3 month follow up Cardiology Comment on above: 3 month follow up Start: 02-07-2024 Annual PCP Team Chronic Disease Visit Annual PCP Team Chronic Disease Visit [facility] Start: 02-01-2024 DIABETES SCREEN DIABETES SCREEN [facility] Start: 01-29-2024 End: 04-29-2024 Thyrotropin [Units/volume] in Serum or Plasma THYROID STIMULATING HORMONE Lab Routine Hypothyroidism, acquired Expected: 01/29/2024, Expires: 04/29/2024 [facility] Work Phone: Comment on above: Expected: 01/29/2024, Expires: Start: 01-29-2024 End: 04-29-2024 Thyroxine (T4) free [Mass/volume] in Serum or Plasma T4 FREE/FREE THYROXINE Lab Routine Hypothyroidism, acquired Expected: 01/29/2024, Expires: 04/29/2024 [facility] Comment on above: Expected: 01/29/2024, Expires: Start: 01-29-2024 End: 04-29-2024 Triiodothyronine (T3) Free [Mass/volume] in Serum or Plasma T3, FREE Lab Routine Hypothyroidism, acquired Expected: 01/29/2024, Expires: 04/29/2024 [facility] Comment on above: Expected: 01/29/2024, Expires: Start: 01-29-2024 End: 01-29-2024 Patient encounter procedure 01/29/2024 11:40 AM EDT Office Visit [facility] [place] [address] [place] [address] Mandeep Houser DO [address] [facility] [place] [address] OMT [facility] [place] Comment on above: OMT Start: 01-15-2024 End: 01-15-2024 Patient encounter procedure 01/15/2024 1:00 PM EDT Office Visit Cardiology [id number] [facility] [address] [place] [id number] [place] [address] [place] [address] 5 months follow up in office per Cardiology Comment on above: 5 months follow up in office per Start: 01-10-2024 ANNUAL PCP TEAM CHRONIC DISEASE VISIT ANNUAL PCP TEAM CHRONIC DISEASE VISIT [facility] Start: 01-07-2024 End: 01-07-2024 Patient encounter procedure Cardiology Comment on above: 5 month follow up office appointment per Start: 01-04-2024 End: 01-04-2024 Patient encounter procedure 01/04/2024 4:20 PM EDT Office Visit [facility] [place] [address] [facility] [place] [address] Mandeep Houser DO [address] [facility] [place] [address] OMT [facility] [place] Comment on above: OMT Start: 12-14-2023 ANNUAL PCP TEAM CHRONIC DISEASE VISIT ANNUAL PCP TEAM CHRONIC DISEASE VISIT [facility] Start: 12-12-2023 End: 12-12-2023 Patient encounter procedure 12/12/2023 3:40 PM EDT Office Visit Family Medicine [place] [address] [facility] [place] [place] [address] Mandeep Houser DO [address] [facility] [place] [id number] OMT [facility] [place] Comment on above: OMT Start: 12-05-2023 End: 12-05-2023 Patient encounter procedure 12/05/2023 1:00 PM EDT Appointment Cardiology Lab [address] [place] [id number] [facility] Lab Comment on above: ECHO Start: 11-27-2023 End: 11-27-2023 Patient encounter procedure 11/27/2023 11:20 AM EDT Office Visit Family Medicine [place] [address] [facility] [place] [place] [address] Mandeep Houser, [address] [place] [address] OMT [facility] [place] Comment on above: OMT Start: 11-14-2023 End: 11-14-2023 Patient encounter procedure 11/14/2023 11:40 AM EDT Office Visit Cardiology [address] [address] Angel Castro, DO [address] [place] [address] 3 month follow up Cardiology Comment on above: 3 month follow up Start: 11-07-2023 End: 11-07-2023 Patient encounter procedure 11/07/2023 1:00 PM EDT Office Visit Cardiology [address] [address] ECHO Cardiology Comment on above: ECHO Start: 11-01-2023 End: 11-01-2023 Patient encounter procedure Cardiology Comment on above: follow up check incision Word finding difficu lty [R47.89]; New onset of headaches after age 50 [R51.9] Start: 10-31-2023 End: 10-31-2023 Patient encounter procedure 10/31/2023 3:00 PM EDT Office Visit Family Medicine [place] [address] [place] [address] Mandeep Houser, [address] [place] [address] 3 month follow up Family [facility] Comment on above: 3 month follow up Start: 10-31-2023 End: 01-30-2024 25-hydroxyvitamin D3 [Mass/volume] in Serum or Plasma [facility] Work Phone: Comment on above: Expected: 10/31/2023, Expires: 4 Start: 10-31-2023 End: 01-30-2024 C reactive protein [Mass/volume] in Serum or Plasma [facility] Comment on above: Expected: 10/31/2023, Expires: 4 Start: 10-31-2023 End: 01-30-2024 Iron and Iron binding capacity panel - Serum or Plasma [facility] Comment on above: Expected: 10/31/2023, Expires: 4 Start: 10-31-2023 End: 01-30-2024 Magnesium [Mass/volume] in Serum or Plasma [facility] Comment on above: Expected: 10/31/2023, Expires: Start: 10-31-2023 End: 01-30-2024 Thyrotropin [Units/volume] in Serum or Plasma [facility] Comment on above: Expected: 10/31/2023, Expires: Start: 10-31-2023 End: 01-30-2024 Thyroxine (T4) free [Mass/volume] in Serum or Plasma [facility] Comment on above: Expected: 10/31/2023, Expires: Start: 10-31-2023 End: 01-30-2024 Triiodothyronine (T3) Free [Mass/volume] in Serum or Plasma [facility] Comment on above: Expected: 10/31/2023, Expires: 4 Start: 10-15-2023 BP CONTROLLED (<130/80) BP CONTROLLED (<130/80) [facility] Start: 10-15-2023 End: 01-14-2024 Comprehensive metabolic 2000 panel - Serum or Plasma [facility] Work Phone: Comment on above: Expected: 10/15/2023, Expires: 4 Start: 10-15-2023 End: 01-14-2024 Urate [Mass/volume] in Serum or Plasma [facility] Comment on above: Expected: 10/15/2023, Expires: 4 Start: 10-11-2023 ANNUAL PCP TEAM CHRONIC DISEASE VISIT ANNUAL PCP TEAM CHRONIC DISEASE VISIT [facility] Start: 10-02-2023 End: 10-02-2023 ambulatory Cardiology Comment on above: Phone visit 6-[address] Wells please call [phone] Start: 09-24-2023 End: 09-24-2023 Patient encounter procedure 09/24/2023 10:15 AM EDT Office Visit Podiatry [address] [place], [place] [id number] Oliverio Mata [address] [place], [place] [id number] left foot pain swollen Podiatry Comment on above: left foot pain swollen Start: 09-19-2023 End: 12-19-2023 Basic metabolic 2000 panel - Serum or Plasma BASIC METABOLIC PANEL Lab Routine Nonischemic cardiomyopathy (HCC) Chronic systolic congestive heart failure (HCC) Expected: 09/19/2023 (Approximate), Expires: 12/19/2023 [facility] Work Phone: Comment on above: Expected: 09/19/2023 (Approximate), Expi res: 12/19/2023 Start: 09-05-2023 End: 12-05-2023 Lipid 1996 panel - Serum or Plasma LIPID PANEL BASIC Lab Routine Mixed hyperlipidemia Expected: 09/05/2023, Expires: 12/05/2023 [facility] Comment on above: Expected: 09/05/2023, Expires: Start: 08-23-2023 ANNUAL PCP TEAM CHRONIC DISEASE VISIT ANNUAL PCP TEAM CHRONIC DISEASE VISIT [facility] Start: 08-15-2023 BP CONTROLLED (<130/80) BP CONTROLLED (<130/80) [facility] Start: 08-03-2023 ANNUAL PCP TEAM CHRONIC DISEASE VISIT ANNUAL PCP TEAM CHRONIC DISEASE VISIT [facility] Start: 07-24-2023 End: 10-23-2023 25-hydroxyvitamin D3 [Mass/volume] in Serum or Plasma [facility] Work Phone: Comment on above: Expected: 07/24/2023, Expires: Start: 07-22-2023 ANNUAL PCP TEAM CHRONIC DISEASE VISIT ANNUAL PCP TEAM CHRONIC DISEASE VISIT [facility] Start: 07-22-2023 Hepatitis B surface antibody level LDL CHOLESTEROL [facility] Start: 07-22-2023 HEPATITIS C SCREENING HEPATITIS C SCREENING [facility] Comment on above: Postponed from 1964 (Declined at t his time) Start: 07-22-2023 Hepatitis C screening Hepatitis C Screening [facility] Comment on above: Postponed from 1964 (Declined at t his time) Start: 07-22-2023 Urine microalbumin profile [facility] Comment on above: Postponed from 1965 (Declined at t his time) Start: 07-19-2023 ANNUAL PCP TEAM CHRONIC DISEASE VISIT ANNUAL PCP TEAM CHRONIC DISEASE VISIT [facility] Start: 05-14-2023 Advance Directive Discussion Advance Directive Discussion [facility] Start: 05-14-2023 Behavioral Health Screening Behavioral Health Screening [facility] Start: 05-14-2023 Depression Assessment Depression Assessment [facility] Start: 05-13-2023 ADVANCE DIRECTIVE DISCUSSION ADVANCE DIRECTIVE DISCUSSION [facility] Comment on above: Postponed from 05/14/2022 (Declined at t his time) Start: 05-03-2023 ANNUAL PCP TEAM CHRONIC DISEASE VISIT ANNUAL PCP TEAM CHRONIC DISEASE VISIT [facility] Start: 03-10-2023 ANNUAL PCP TEAM CHRONIC DISEASE VISIT ANNUAL PCP TEAM CHRONIC DISEASE VISIT [facility] Start: 03-10-2023 BP CONTROLLED (<130/80) BP CONTROLLED (<130/80) [facility] Start: 02-09-2023 End: 04-11-2023 CBC W Auto Differential panel - Blood CBC + DIFF Lab Routine Hypothyroidism, unspecified type Expected: 02/09/2023, Expires: 04/11/2023 [facility] Work Phone: Comment on above: Expected: 02/09/2023, Expires: 3 Start: 02-09-2023 End: 04-11-2023 Comprehensive metabolic 2000 panel - Serum or Plasma COMP METABOLIC PANEL Lab Routine Hypothyroidism, unspecified type Expected: 02/09/2023, Expires: 04/11/2023 [facility] Work Phone: Comment on above: Expected: 02/09/2023, Expires: 3 Start: 02-09-2023 End: 04-11-2023 Thyrotropin [Units/volume] in Serum or Plasma TSH BLD Lab Routine Hypothyroidism, unspecified type Expected: 02/09/2023, Expires: 04/11/2023 [facility] Work Phone: Comment on above: Expected: 02/09/2023, Expires: 3 Start: 02-09-2023 End: 04-11-2023 Thyroxine (T4) free [Mass/volume] in Serum or Plasma T4 FREE/FREE THYROX Lab Routine Hypothyroidism, unspecified type Expected: 02/09/2023, Expires: 04/11/2023 [facility] Work Phone: Comment on above: Expected: 02/09/2023, Expires: 3 Start: 02-09-2023 End: 04-11-2023 Triiodothyronine (T3) Free [Mass/volume] in Serum or Plasma T3 FREE BLD Lab Routine Hypothyroidism, unspecified type Expected: 02/09/2023, Expires: 04/11/2023 [facility] Work Phone: Comment on above: Expected: 02/09/2023, Expires: 3 Start: 01-20-2023 ANNUAL PCP TEAM CHRONIC DISEASE VISIT ANNUAL PCP TEAM CHRONIC DISEASE VISIT [facility] Start: 01-20-2023 BP CONTROLLED (<130/80) BP CONTROLLED (<130/80) [facility] Start: 01-12-2023 Hepatitis B surface antibody level LDL CHOLESTEROL [facility] Start: 12-19-2022 BP CONTROLLED (<130/80) BP CONTROLLED (<130/80) [facility] Start: 11-02-2022 BP CONTROLLED (<130/80) BP CONTROLLED (<130/80) [facility] Start: 10-19-2022 ANNUAL PCP TEAM CHRONIC DISEASE VISIT ANNUAL PCP TEAM CHRONIC DISEASE VISIT [facility] Start: 10-14-2022 End: 10-28-2022 Influenza virus A and B RNA and SARS-CoV-2 (COVID-19) N gene panel - Respiratory specimen by PRECIOUS with probe detection COVID WITH FLUA+B, ROUTINE Microbiology Routine Sore throat Acute cough Expected: 10/14/2022, Expires: 10/28/2022 [facility] Work Phone: Comment on above: Expected: 10/14/2022, Expires: 3 Start: 09-21-2022 ANNUAL PCP TEAM CHRONIC DISEASE VISIT ANNUAL PCP TEAM CHRONIC DISEASE VISIT [facility] Start: 09-14-2022 Hepatitis B surface antibody level LDL CHOLESTEROL [facility] Start: 09-01-2022 ANNUAL PCP TEAM CHRONIC DISEASE VISIT ANNUAL PCP TEAM CHRONIC DISEASE VISIT [facility] Start: 08-15-2022 Mammography MAMMOGRAM [facility] Start: 07-01-2022 ANNUAL PCP TEAM CHRONIC DISEASE VISIT ANNUAL PCP TEAM CHRONIC DISEASE VISIT [facility] Start: 05-14-2022 ADVANCE DIRECTIVE DISCUSSION ADVANCE DIRECTIVE DISCUSSION [facility] Start: 05-14-2022 DEPRESSION ASSESSMENT DEPRESSION ASSESSMENT [facility] Start: 02-20-2022 End: 02-13-2023 Echocardiography ECHO Cardiology Routine Cardiomegaly Expected: 02/20/2022, Expires: 02/13/2023 [facility] Work Phone: Comment on above: Expected: 02/20/2022, Expires: 3 Start: 12-29-2021 PNEUMOCOCCAL: 65+ (2 - PCV) PNEUMOCOCCAL: 65+ (2 - PCV) [facility] Start: 12-22-2021 Hepatitis B surface antibody level LDL CHOLESTEROL [facility] Start: 12-09-2021 Adult depression screening assessment DEPRESSION SCREENING [facility] Start: 11-29-2021 End: 01-29-2022 Basic metabolic 2000 panel - Serum or Plasma BASIC METABOLIC PNL Lab Routine Chronic systolic CHF (congestive heart failure) (HCC) Expected: 11/29/2021, Expires: 01/29/2022 [facility] Work Phone: Comment on above: Expected: 11/29/2021, Expires: 2 Start: 11-29-2021 End: 01-29-2022 CBC panel - Blood by Automated count CBC Lab Routine Chronic systolic CHF (congestive heart failure) (HCC) Expected: 11/29/2021, Expires: 01/29/2022 [facility] Work Phone: Comment on above: Expected: 11/29/2021, Expires: 2 Start: 10-20-2021 End: 12-20-2021 T3 BLD T3 BLD Lab Routine Hypothyroidism, unspecified type Expected: 10/20/2021, Expires: 12/20/2021 [facility] Work Phone: Comment on above: Expected: 10/20/2021, Expires: 2 Start: 10-20-2021 End: 12-20-2021 T4 FREE/FREE THYROX T4 FREE/FREE THYROX Lab Routine Hypothyroidism, unspecified type Expected: 10/20/2021, Expires: 12/20/2021 [facility] Work Phone: Comment on above: Expected: 10/20/2021, Expires: 2 Start: 10-20-2021 End: 12-20-2021 Thyrotropin [Units/volume] in Serum or Plasma TSH BLD Lab Routine Hypothyroidism, unspecified type Expected: 10/20/2021, Expires: 12/20/2021 [facility] Work Phone: Comment on above: Expected: 10/20/2021, Expires: 2 Start: 09-01-2021 End: 11-01-2021 CBC W Auto Differential panel - Blood CBC + DIFF Lab Routine Primary hypertension Expected: 09/01/2021, Expires: 11/01/2021 [facility] Work Phone: Comment on above: Expected: 09/01/2021, Expires: 2 Start: 09-01-2021 End: 11-01-2021 Comprehensive metabolic 2000 panel - Serum or Plasma COMP METABOLIC PANEL Lab Routine Primary hypertension Hypokalemia Expected: 09/01/2021, Expires: 11/01/2021 [facility] Work Phone: Comment on above: Expected: 09/01/2021, Expires: 2 Start: 09-01-2021 End: 11-01-2021 Hemoglobin A1c/Hemoglobin.total in Blood HGB A1C Lab Routine Screening for diabetes mellitus Abnormal finding of blood chemistry, unspecified Expected: 09/01/2021, Expires: 11/01/2021 [facility] Work Phone: Comment on above: Expected: 09/01/2021, Expires: 2 Start: 09-01-2021 End: 11-01-2021 LIPID PANEL BASIC LIPID PANEL BASIC Lab Routine Mixed hyperlipidemia Expected: 09/01/2021, Expires: 11/01/2021 [facility] Work Phone: Comment on above: Expected: 09/01/2021, Expires: 2 Start: 09-01-2021 End: 11-01-2021 Thyrotropin [Units/volume] in Serum or Plasma TSH BLD Lab Routine Screening for thyroid disorder Expected: 09/01/2021, Expires: 11/01/2021 [facility] Work Phone: Comment on above: Expected: 09/01/2021, Expires: 2 Start: 09-01-2021 End: 11-01-2021 VITAMIN D 25 HYDROXY VITAMIN D 25 HYDROXY Lab Routine Encounter for vitamin deficiency screening Body mass index (BMI) 34.0-34.9, adult Expected: 09/01/2021, Expires: 11/01/2021 [facility] Work Phone: Comment on above: Expected: 09/01/2021, Expires: 2 Start: 08-09-2021 Mammography MAMMOGRAM [facility] Start: 2021 RSV Vaccine (1 - 1-dose 75+ series) RSV Vaccine (1 - 1-dose 75+ series) [facility] Start: 05-14-2021 ADVANCE DIRECTIVE DISCUSSION ADVANCE DIRECTIVE DISCUSSION [facility] Start: 05-14-2021 DEPRESSION ASSESSMENT DEPRESSION ASSESSMENT [facility] Start: 12-19-2019 Colonoscopy COLONOSCOPY [facility] Start: 12-19-2019 COLORECTAL CANCER SCREENING COLORECTAL CANCER SCREENING [facility] Start: 07-17-2011 BONE DENSITY BONE DENSITY [facility] Start: 07-13-2011 Medicare Annual Wellness Visit Medicare Annual Wellness Visit [facility] Start: 2006 RSV Vaccine (1 - 1-dose 60+ series) RSV Vaccine (1 - 1-dose 60+ series) [facility] Start: 1996 SHINGRIX VACCINE (1 of 2) SHINGRIX VACCINE (1 of 2) [facility] Start: 07-17-1991 COLOGUARD (FIT-DNA) COLOGUARD (FIT-DNA) [facility] Start: 07-17-[address] COLONOGRAPHY [facility] Start: 07-17-1991 FECAL OCCULT BLOOD FECAL OCCULT BLOOD [facility] Start: 07-17-1991 SIGMOIDOSCOPY SIGMOIDOSCOPY [facility] Start: 1965 Urine microalbumin profile [facility] Start: 1964 BP CONTROLLED (<130/80) BP CONTROLLED (<130/80) [facility] Start: 1964 HEPATITIS C SCREENING HEPATITIS C SCREENING [facility] Start: 1964 Hepatitis C screening Hepatitis C Screening [facility] End: 11-18-2022 Ct abdomen & pelvis w/contrast material CT ABD/PEL W IVCON Radiology Routine Diverticulitis RLQ abdominal pain Lower abdominal pain 1 Occurrences starting 10/19/2021 until 11/18/2022 [facility] Work Phone: Comment on above: 1 Occurrences starting 10/19/2021 until 11/18/2022 End: 09-21-2023 Ct abdomen & pelvis w/contrast material CT ABD/PEL W IVCON Radiology STAT Abdominal distension (gaseous) Nausea RUQ abdominal pain 1 Occurrences starting 08/22/2022 until 09/21/2023 [facility] Work Phone: Comment on above: 1 Occurrences starting 08/22/2022 until 09/21/2023 End: 11-29-2024 CT Head WO contrast CT BRAIN WO IVCON Radiology STAT Word finding difficulty New onset of headaches after age 50 1 Occurrences starting 10/31/2023 until 11/29/2024 [facility] Comment on above: 1 Occurrences starting 10/31/2023 until 11/29/2024 End: 08-20-2023 DXA-AXIAL SKELETON DXA-AXIAL SKELETON Radiology Routine Screening for osteoporosis Asymptomatic menopause 1 Occurrences starting 07/21/2022 until 08/20/2023 [facility] Work Phone: Comment on above: 1 Occurrences starting 07/21/2022 until 08/20/2023 End: 08-04-2023 ECG COMPLETE ECG COMPLETE ECG Routine Primary hypertension Palpitations Mixed hyperlipidemia 1 Occurrences starting 08/03/2022 until 08/04/2023 [facility] Work Phone: Comment on above: 1 Occurrences starting 08/03/2022 until 08/04/2023 ECG COMPLETE [facility] Work Phone: Comment on above: Ordered: 04/09/2023 ECG COMPLETE ECG COMPLETE ECG Routine LBBB (left bundle branch block) Presence of cardiac resynchronization therapy defibrillator (CUT PLUG PACKER-D) Acute on chronic systolic CHF (congestive heart failure) (HCC) Ordered: 08/07/2023 [facility] Work Phone: Comment on above: Ordered: 08/07/2023 ECG COMPLETE ECG COMPLETE ECG Routine Presence of cardiac resynchronization therapy defibrillator (CUT PLUG PACKER-D) Non-ischemic cardiomyopathy (HCC) LBBB (left bundle branch block) Ordered: 11/01/2023 [facility] Work Phone: Comment on above: Ordered: 11/01/2023 ECG COMPLETE ECG COMPLETE ECG Routine Cardiac resynchronization therapy defibrillator (CUT PLUG PACKER-D) in place Ordered: 11/03/2024 [facility] Work Phone: Comment on above: Ordered: 11/03/2024 OUTSIDE VENDOR CARDI AC OUTPATIENT EXTENDED RHYTHM RECORDING (WITHOUT TELEMETRY) OUTSIDE VENDOR CARDIAC OUTPATIENT EXTENDED RHYTHM RECORDING (WITHOUT TELEMETRY) Holter Routine Primary hypertension Palpitations Ordered: 08/14/2022 [facility] Work Phone: Comment on above: Ordered: 08/14/2022 OUTSIDE VENDOR CARDI AC OUTPATIENT EXTENDED RHYTHM RECORDING (WITHOUT TELEMETRY) OUTSIDE VENDOR CARDIAC OUTPATIENT EXTENDED RHYTHM RECORDING (WITHOUT TELEMETRY) Holter Routine Cardiac resynchronization therapy defibrillator (CUT PLUG PACKER-D) in place Ordered: 11/03/2024 [facility] Comment on above: Ordered: 11/03/2024 Patient Education ED Chest Wall Contusion [facility] Work Phone: SURGICAL PATHOLOGY [facility] Work Phone: Comment on above: Release Upon Ordering for 1 Occurrences starting 12/05/2021, 1 completed UA DIP, URINE (POC) UA DIP, URIN E (POC) Lab Routine Vagina, candidiasis Burning with urination Ordered: 08/22/2023 [facility] Work Phone: Comment on above: Ordered: 08/22/2023 End: 08-07-2025 XR Chest PA and Lateral XR CHEST 2V FRONTAL/LAT Radiology Routine Acute cough 1 Occurrences starting 07/08/2024 until 08/07/2025 [facility] Comment on above: 1 Occurrences starting 07/08/2024 until 08/07/2025 XR Chest PA and Lateral XR CHEST 2V FRONTAL/LAT Radiology Routine Acute cough 07/08/2024 3:31 PM EST [facility] End: 10-23-2024 XR Foot - left AP and Lateral and oblique XR FOOT GENERAL 3V AP/LAT/OBL LEFT Radiology Routine Repetitive stress injury 1 Occurrences starting 09/24/2023 until 10/23/2024 [facility] Work Phone: Comment on above: 1 Occurrences starting 09/24/2023 until 10/23/2024 XR Foot - left AP an d Lateral and oblique XR FOOT GENERAL 3V AP/LAT/OBL LEFT Radiology Routine Repetitive stress injury 09/24/2023 11:15 AM EDT [facility] End: 12-06-2024 XR Lumbar spine 3 Views XR LUMBAR GENERAL 3V AP/LAT/L5-S1 Radiology Routine Acute midline low back pain without sciatica 1 Occurrences starting 11/07/2023 until 12/06/2024 [facility] Work Phone: Comment on above: 1 Occurrences starting 11/07/2023 until 12/06/2024 [facility] Immunizations Immunization Date Immunization Notes Care Provider Fa gideon 07-21-2022 pneumococcal (PCV20) vaccine, 20 valent (PREVNAR 20) Alejandrina Yasir VICE PRESIDENT OF OPERATIONS.DIRECTOR OF DONOR RELATIONS Work Phone: [facility] 07-21-2022 pneumococcal Conjuga te, unspecified formulation Alejandrina Yasir VICE PRESIDENT OF OPERATIONS.DIRECTOR OF DONOR RELATIONS Work Phone: [facility] Work Phone: 12-29-2020 pneumococcal polysaccharide vaccine, 23 valent Estelita Maradiaga PT Work Phone: [facility] Work Phone: Payers Date Payer Category Payer Self-pay 2013 Private Health Insurance [facility] A[employer] SUPPLEMENT [id number] 2013-Present [phone] [address] [place] [address] Indemnity [id number] 2013 Private Health Insurance [id number] 2013 Unknown [id number] 2011 Medicare MEDICARE MEDICAR E A AND B [id number] 2011-Present [phone] [address] [address] [place] [address] Medicare [id number] 2011 Medicare [id number] 2011 Medicare [id number] Medicare [id number] Unknown NOLANARE/AKRO [id number] Unknown [id number] Unknown [id number] Unknown [id number] Unknown [id number] Unknown [id number] Unknown [id number] Unknown [id number] Social History Date Type Detail Facility Start: 09-03-2020 End: 11-13-2024 Tobacco smoking status NHIS Ex-smoker [facility] End: 10-22-2002 History of tobacco use Current smoker [facility] End: 10-22-2002 History of tobacco use Cigarette Smoker [facility] Start: 07-01-2021 End: 11-03-2024 Alcohol intake Current non-drinker of alcohol (finding) [facility] Start: 1945 Sex Assigned At Not on file C [facility] Start: 03-21-2020 End: 03-10-2022 Exposure to SARS-CoV-2 (event) Not sure [facility] Start: 09-03-2020 End: 01-15-2024 Tobacco use and exposure Smokeless tobacco non-user [facility] Start: 09-27-2022 End: 10-14-2022 History of Social function [facility] Work Phone: Start: 09-27-2022 End: 10-14-2022 Tobacco use panel [facility] Work Phone: Adult Depression Screening Assessment 0 [facility] Work Phone: Has the [employer], [employer], or water Feidee threatened to shut off services in your home in past 12Mo No [facility] How hard is it for y ou to pay for the very basics like food, housing, medical care, and heating Not very hard [facility] (I/We) worried paulo er (my/our) food would run out before (I/we) got money to buy more. Never true [facility] Start: 08-29-2023 [facility] Start: 1945 Sex Assigned At Female W [facility] NEGATED: Highlighted row - - [facility] Work Phone: Medical Equipment Procedure Code Equipment Code Equipment Original Text Equipment Identifier Dates Sling Dennis Polypropylene 60x1.1cm Suburethral Transobturator Tape - [id number] Start: 05-24-2020 [id number] Baltazar lt Xt Hf Quad Resaw Operator-D [id number] Start: 2023 [id number] Caps urefix Novus [id number] Start: 2023 [id number] Narinder in Stability Quad Mri Surescan [id number] Start: 2023 [id number] Spr int Quattro Secure S [id number] Start: 2023 Goals Date Patient Goal Desired Activity /State Personal health goal Functional Status Date Assessment Result Facility 11-18-2023 Are you deaf, or do you have serious difficulty hearing No 11/18/2023 1:06 PM Lena Holloway, CARO No [facility] 11-18-2023 Are you blind, or do you have serious difficulty seeing, even when wearing glasses No 11/18/2023 1:06 PM Lena Holloway, CARO No [facility] 11-18-2023 Do you have serious difficulty walking or climbing stairs No 11/18/2023 1:06 PM Lena Holloway, CARO No [facility] 11-18-2023 Do you have difficul ty dressing or bathing No 11/18/2023 1:06 PM Lena Holloway, CARO No [facility] 11-18-2023 Because of a physica l, mental, or emotional condition, do you have difficulty doing errands alone such as visiting a physician's office or shopping No 11/18/2023 1:06 PM EDT Lena Lennon RN No [facility] NEGATED: Highlighted row Functional performance Functional status health issues are not documented Disease [facility] Work Phone: Mental Status Date Assessment Result Facility 11-18-2023 Because of a physical, mental, or emotional condition, do you have serious difficulty concentrating, remembering, or making decisions No 11/18/2023 1:06 PM EDT Lena Lennon RN No [facility] NEGATED: Highlighted row Cognitive function [Interpretation] Cognitive status health issues are not documented Disease [facility] Work Phone: Clinical Notes 04-27-2020 to 11-13-2024 Note Date & Type Note Facility 11-13-2024 Discharge summary [facility] 11-13-2024 Radiology Diagnostic study note [facility] Imaging Services [address] [place] [address] [id number] Chest without Contrast MR#: [id number] Acct: [id number] Name: SANDRA SCHMITZ Rep #: [id number] : 1945 F 79 From: Julianna Lanza MD PCP: Dr. Mandeep Houser, DO Status: RE G ER Study:Chest without Contrast Date of Exam: 11/13/24 Exam# [id number] Ordering Dr: Mykel Goldberg MD PROCEDURE: CHEST WITHOUT CONTRAST 11/13/2024 REASON FOR EXAM: FALL, CP/SOB, MULTIPLE AREAS OF CHEST WALL INJURY TECHNIQUE: Chest CT without contrast. Coronal and Sagittal reconstruction series were provided. One or more dose reduction techniques were used (e.g., Automated exposure control, adjustment of the mA and/or kV according to patient size, use of iterative reconstruction technique. RADIATION DOSE SUMMARY: DLP: 1400 mGycm COMPARISON: Same day chest radiograph. FINDINGS: Visualization is limited by motion artifact and streak artifact from left chest wall pacemaker. Hardware: Pacemaker. Lymph nodes: Visualization is limited by noncontrast imaging. No large lymphadenopathy. Heart and Vasculature: The heart is normal in size without pericardial effusion. The great vessels are grossly normal caliber. At least moderate coronary artery and thoracic aortic calcifications. Lungs and Airways: Visualization is limited by motion artifact. The central airways are patent. Bibasilar atelectasis/scarring. No large pulmonary mass, pleural effusion or pneumothorax. Upper Abdomen: Diverticulosis. Calcific plaque of the abdominal aorta. Bones: Thoracic spondylosis. No obvious acute fracture. CT/Chest without Contrast IMPRESSION: Visualization is limited by motion artifact and streak artifact from left chest wall pacemaker. No acute finding on noncontrast examination. Reading Location: [id number] CC: Dr. Jose Goldberg MD; Dr. Mandeep Houser DO ~ 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 Apprentice: Signed [facility] 11-13-2024 Radiology Diagnostic study note [facility] Imaging Services [address] [place] [address] [id number] Brain/Head without Contrast MR#: [id number] Acct: [id number] Name: SANDRA SCHMITZ Rep #: [id number] : 1945 F 79 From: Julianna Lanza MD PCP: Dr. Mandeep Houser DO Status: RE G ER Study:Brain/Head without Contrast Date of Exa m: 11/13/24 Exam# [id number] Ordering Dr: Mykel Goldberg MD EXAM: BRAIN/HEAD WITHOUT CONTRAST CLINICAL HISTORY: 79 y/o F with HEAD TRAUMA/FALL. COMPARISON: None. TECHNIQUE: Routine CT imaging of the head without IV contrast. Additional multiplanar reformats were obtained. Dose reduction techniques were used including intermediate exposure control (AEC),iterative reconstruction technique, and/or mA and/or KV dose adjustments based on patient's size. FINDINGS: The ventricles, sulci and cisterns are normal for patient age. There is no evidence of acute intracranial hemorrhage or herniation. There is no midline shift, mass effect, or extra-axial collection. Moderate patchy supratentorial white matter hypodensities. The robles and white matter differentiation is otherwise maintained. The orbits, visualized paranasal sinuses and mastoids are unremarkable. No acute calvarial fracture or scalp hematoma. CT/Brain/Head without Contrast IMPRESSION: No acute intracranial finding. Reading Location: [facility] CC: Dr. Jose Goldberg MD; Dr. Mandeep Houser DO ~ 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 Apprentice: Signed [facility] 11-13-2024 Radiology Diagnostic study note [facility] Imaging Services [address] [place] [address] Hand Min 3 Views MR#: [id number] Acct: [id number] Name: NADIRSANDRA Rep #: [id number] : 1945 F 79 From: Julianna Lanza MD PCP: Dr. Manedep Houser DO Status: RE G ER Study:Hand Min 3 Views Date of Exam: 08/05 Exam# [id number] Ordering Dr: Mykel Goldberg MD PROCEDURE: HAND MIN 3 VIEWS 11/13/2024 REASON FOR EXAM: PAIN/INJURY TECHNIQUE: HAND MIN 3 VIEWS, right COMPARISON: None. FINDINGS: Bones: No acute fracture. No aggressive osseous lesions. Joints: Normal alignment. Moderate degenerative changes. Soft tissues: Soft tissues are unremarkable. RAD/Hand Min 3 Views IMPRESSION: DEGENERATIVE OSTEOARTHROSIS. NO ACUTE FINDINGS. Reading Location: [facility] CC: Dr. Jose Goldberg MD; Dr. Mandeep Houser DO ~ 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 Apprentice: Signed [facility] 11-13-2024 Radiology Diagnostic study note [facility] Imaging Services [address] [place], [place] [id number] Chest 1 View (Portable) MR#: [id number] Acct: [id number] Name: SANDRA SCHMITZ Rep #: [id number] : 1945 F 79 From: Julianna Lanza MD PCP: Dr. Mandeep Houser DO Status: RE G ER Study:Chest 1 View (Portable) Date of Exam: 11/13/24 Exam# [id number] Ordering Dr: Mykel Goldberg MD PROCEDURE: CHEST 1 VIEW (PORTABLE) 11/13/2024 REASON FOR EXAM: FALL/INJURY CHEST TECHNIQUE: Frontal view of the chest. COMPARISON: Chest radiograph 03/27/2024. FINDINGS: Hardware: Left chest wall pacemaker in place. Heart: Stable mild cardiomegaly. Lungs: Low lung volumes, nxab-byellcl-iwck-right. Visualization of the left lung is limited due to overlying pacemaker. No large consolidation, pleural effusion or pneumothorax. Bones: Degenerative changes are identified within the thoracic spine. RAD/Chest 1 View (Portable) IMPRESSION: Cardiomegaly. No acute findings. Reading Location: [facility] CC: Dr. Jose Goldberg MD; Dr. Mandeep Houser DO ~ 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 Apprentice: Signed [facility] 11-13-2024 Discharge summary Note Date/Time November 13, 2024 10:33pm [facility] Medical Records Department [address] [place] [id number] Emergency Department Summary 11/13/24 MR#: [id number] Acct: [id number] Name: SANDRA SCHMITZ Rep #:[id number] : 1945 79 From: Jose Goldberg MD PCP: Dr. Mandeep Houser, Status:RE G ER Location: ED HPI HPI - Fall History of Present Illness Chief Complaint: Fall Informant: patient and family (x2) Narrative Narrative: Patient had an accidental trip and fall. She states she went out to check the mail, and caught an edge on the sidewalk, causing her to tumble hitting the right lateral face/head, her ribs on the right, but she also has chest wall painon the left that progresses to the posterior aspect around her shoulder blade. She also has some mild pain in her right ring and little fingers, having some trouble moving them, stating that they feel stiff, and family states that she bumped her left knee. The patient states her left knee is not hurting anymore. She denies any abdominal pain. This just happened prior to coming here, they called EMS immediately, EMS helped her onto her feet she was able to stand and brought her right to the hospital. She denies having headache, loss of consciousness, she is on no anticoagulants but takes a baby aspirin daily. [facility] Medical History Obesity Former tobacco use Hyperlipidemia HFrEF (heart failure with reduced ejection fraction) Presence of combination internal cardiac defibrillator (ICD) and pacemaker Hypertension Home Medications ?Medication ?Instructions ?Recorded ?Last Taken ?Type aspirin 81 mg tablet,delayed 81 mg PO DAILY 03/27/24 U nknown History release (Adult Aspirin Regimen) furosemide 20 mg tablet 20 mg PO DAILY 03/27/24 Unkn own History losartan 25 mg tablet 25 mg PO DAILY 03/27/24 Unkn own History metoprolol succinate 25 mg 25 mg PO QHS 03/27/24 Unkno wn History tablet,extended release 24 hr ondansetron 8 mg disintegrating 8 mg PO Q8H PRN nausea and 11/13/24 Unknown Rx tablet vomiting #12 tabs oxycodone-acetaminophen 5 mg-325 1 tab PO Q6H PRN PRN Pain 3 days 11/13/24 Unknown Rx mg tablet #12 TABLETS simethicone 80 mg chewable tablet 160 mg PO PRN PRN ab dominal 11/13/24 Unknown History distention Allergy/AdvReac Type Severity Reaction Status Date / Time amoxicillin (From Augmentin) AdvReac PT UNSURE Verified 11/13/24 17:57 OF REACTION clavulanic acid (From AdvReac PT UNSURE Verified 11/13/24 17:57 Augmentin) OF REACTION Surgical History S/P implantation of automatic cardioverter/defibrillator (AICD) H/O: hysterectomy History of cholecystectomy Social History household members: none Smoking Status: Former smoker how long ago did patient quit smoking: Quit ~ 20 yrs prior, smoked 1 ppd x ~ 30yrs. alcohol intake: never substance use type: does not use ROS ROS ED Constitutional Constitutional ED: Denies chills or fever(s) Eyes Eyes: Denies change in vision or diplopia ENT ENT ED: Reports other Details: right facial pain ; Denies ear pain, epistaxis, facial pain or rhinorrhea Cardiovascular Cardiovascular: Reports chest pain; Denies palpitations Respiratory/Chest Respiratory/Chest: Reports dyspnea; Denies cough Gastrointestinal Gastrointestinal: Denies abdominal pain, diarrhea, melena, nausea or vomiting Genitourinary Genitourinary ED: Denies dysuria or hematuria Musculoskeletal Musculoskeletal: Reports back pain and extremity pain; Denies neck pain Integumentary Denies abscess, Abrasions, laceration or rash Neurologic Neurologic: Reports other Details: briefly dazed per family ; Denies confusion, headache(s), paresthesias or weakness EXAM Physical Exam Const Vital Signs: 11/13/24 17:55 11/13/24 17:58 11/13/24 19:54 Temperature 97.3 F L Temperature Source Temporal Pulse Rate 71 Respiratory Rate 22 H 17 Respiratory Effort Short of Breath Blood Pressure 143/104 H 146/72 H Blood Pressure Mean 117 96 Pulse Ox 96 94 Oxygen Delivery Method Room Air Room Air 11/13/24 20:33 11/13/24 22:00 Temperature Temperature Source Pulse Rate 55 L Respiratory Rate Respiratory Effort Blood Pressure 106/79 101/63 Blood Pressure Mean 88 75 Pulse Ox 95 95 Oxygen Delivery Method Room Air Positive well nourished and well developed General Appearance ED: well developed and NAD HEENT Reports TM's clear and nasal mucous membranes and turbinates normal HEENT Narrative: No Pelaez sign, no raccoon eyes, no CSF otorhinorrhea, no hemotympanum. No objective evidence of facial trauma no reproducible tenderness. No intraoral lesions/injury. No trismus. atraumatic Face and Sinus: Negative for facial tenderness Tympanic Membrane ED: Yes TM's clear Eyes PERRL and EOMs intact bilaterally Visual Acuity: other Other Details: no entrapment or pain with extraocular movements Neck full ROM and supple General: Negative for tenderness Chest Wall inspection of chest normal Chest Narrative: Multiple areas of tenderness in the rib cage. Right lower anterior, left mid posterior and lateral and anterior lower. Splinting with deep inspiration. Breath sounds are equal bilaterally. No flail segments. No subcutaneous emphysema palpable. Chest: symmetrical chest wall rise and tenderness; Negative for crepitus Resp normal respiratory effort and clear to auscultation bilaterally Percussion: other equal BS bilat Cardio no murmurs Rate: regular rate Rhythm: regular rhythm GI normal to inspection, nondistended, normoactive bowel sounds, soft to palpation and non-tender Back/Spine Back/Spine Narrative: Limited range of motion due to pain in her upper back, but no midline spinal tenderness throughout. Cervical Spine: Negative for cervical spine tenderness Thoracic Spine / Upper Back: Negative for thoracic spinal tenderness Lumbar Spine / Lower Back: Negative for lumbar spinal tenderness Extremity normal to inspection and full ROM Extremity Narrative: Mild tenderness at the right ring and little fingers, with small associated contusions. No deformities. With supination patient is able to bend fingers in, FDS FDP intact all fingers, no rotational deformities or otherwise. No nailinjuries or subungual hematomas. Otherwise full range of motion with no pain orbony tenderness including the left knee, which has full range of motion, no bonytenderness or evidence of trauma, no effusion, extensor mechanism intact and stable ligaments, and her left shoulder with internal/external rotation and no tenderness. With abduction of the left shoulder she does have some pain in the rib cage limiting her somewhat, but not in the shoulder or the clavicles or acromioclavicular joints which are both nontender. General Extremety ED: Yes tenderness Neuro oriented x3, CN's II-XII intact bilaterally, moves all extremities, no focal motor deficits and no sensory deficits noted Ja Coma Scale: document GCS findings Spontaneous Obeys Commands Oriented 15 Sensorium / Orientation: awake and alert Psych mental status grossly normal and thought process normal Skin no wounds Lesions: no lesions Rashes: no rashes MDM MDM MDM Narrative Medical decision making narrative: Initially performed as stat portable chest x-ray, which on my interpretation shows no pneumothorax or significantly widened mediastinum, or obvious displacedrib fracture. However she is tender and having pain so many areas of the rib cage, I thought more appropriate to perform a CT to evaluate more thoroughly including her sternum which is painful and mildly tender. Also due to this and the possibility of a sternal fracture which will be seen on CT if present, and possibility of myocardial contusion, EKG was obtained, my interpretation shows right bundle branch block and some associated T wave inversions but no acute injury pattern and no ectopy. Also obtain three-view x-ray series of the right hand, which my interpretation shows no fractures radiology in agreement on both of these. She was sent for CT of the head which on my interpretation shows no acute intracranial injury or orbital injury, as well as CT of the chest. My interpretation is CT of the chest shows no pulmonary, mediastinal, or rib injury. I see no pneumothorax on my interpretation. Radiology in agreement, itis negative for any acute injury. I discussed with the patient and family, it certainly is possible to have a nondisplaced rib fracture and not be seen on these images, the treatment would be the same but she would just have pain for longer. I will prescribe her some analgesics and give her an incentive spirometer with instructions for use, and recommend outpatient follow-up if she still having issues. She is able to ambulate here in the ED and she has a walker at home to use as needed. With regards to the left shoulder, when she abducts she has pain in the periscapular area of the back, but she does not haveshoulder joint pain. We did do a CT of all this area there is no scapular dissociation or fracture, and I do not think she is having any shoulder joint pain I think it is related to the chest wall injury/pain. Lab Data Attestation: I reviewed the patient's lab results. Labs: Laboratory Results - last 24 hr 11/13/24 11/13/24 11/13/24 19:10 19:10 19:22 WBC Cancelled Corrected WBC Cancelled RBC Cancelled Hgb Cancelled Hct Cancelled MCV Cancelled MCH Cancelled MCHC Cancelled RDW Std Deviation Cancelled RDW Coeff of Julian Cancelled Plt Count Cancelled MPV Cancelled Immature Gran % (Auto) Cancelled Neut % (Auto) Cancelled Lymph % (Auto) Cancelled Camas % (Auto) Cancelled Eos % (Auto) Cancelled Baso % (Auto) Cancelled Absolute Neuts (auto) Cancelled Absolute Lymphs (auto) Cancelled Total Counted Cancelled Neutrophils % (Manual) Cancelled Band Neutrophils % Cancelled Lymphocytes % (Manual) Cancelled Monocytes % (Manual) Cancelled Eosinophils % (Manual) Cancelled Basophils % (Manual) Cancelled Metamyelocytes % Cancelled Myelocytes % Cancelled Promyelocytes % Cancelled Blast Cells % Cancelled Plasma Cell % (Manual) Cancelled Other Cells % Cancelled Nucleated RBC % Cancelled Nucleated RBCs/100 WBC Cancelled Differential Comment Cancelled Diff Path Review Cancelled Hypersegmented Neuts Cancelled Atypical Lymphocytes Cancelled Reactive Lymphocytes Cancelled Smudge Cells Cancelled Toxic Granulation Cancelled Toxic Vacuolation Cancelled Dohle Bodies Cancelled Peter Rods Cancelled Platelet Estimate Cancelled Plt Morphology Comment Cancelled RBC Morphology Cancelled Cancelled Polychromasia Cancelled Hypochromasia Cancelled Basophilic Stippling Cancelled Anisocytosis Cancelled Microcytosis Cancelled Macrocytosis Cancelled Spherocytes Cancelled Sickle Cells Cancelled Target Cells Cancelled Tear Drop Cells Cancelled Ovalocytes Cancelled Stomatocytes Cancelled Lua-Evarts Bodies Cancelled Rocky Cells Cancelled Bite Cells Cancelled Crenated Cell Cancelled Acanthocytes (Spur) Cancelled Rouleaux Cancelled Schistocytes Cancelled Sodium 139 Potassium 4.3 Chloride 107 Carbon Dioxide 20.2 L Anion Gap 12 BUN 22 H Creatinine 0.96 Estim Creat Clear Calc 51.57 Est GFR (MDRD) Non-Af 61 BUN/Creatinine Ratio 22.8 H Glucose 122 H Calcium 9.3 Urine Color Yellow Urine Clarity Clear Urine pH 6.5 Ur Specific [place] 1.010 Urine Protein 15 H Urine Glucose (UA) Normal Urine Ketones Negative Urine Occult Blood Negative Urine Nitrite Negative Urine Bilirubin Negative Urine Urobilinogen Normal Ur Leukocyte Esterase Negative Urine RBC 0 SEEN Urine WBC 0-5 SEEN Ur Squamous Epith Cells 5-10 SEEN Urine Bacteria RARE Urine Mucus 0 SEEN 11/13/24 20:07 WBC 9.6 Corrected WBC RBC 4.16 L Hgb 12.1 Hct 37.5 MCV 90.1 MCH 29.1 MCHC 32.3 RDW Std Deviation 45.6 H RDW Coeff of Julian 13.8 Plt Count 295 MPV 9.7 Immature Gran % (Auto) 0.700 Neut % (Auto) 61.4 Lymph % (Auto) 26.8 Camas % (Auto) 8.8 Eos % (Auto) 1.3 Baso % (Auto) 1.0 Absolute Neuts (auto) 5.9 Absolute Lymphs (auto) 2.58 Total Counted Neutrophils % (Manual) Band Neutrophils % Lymphocytes % (Manual) Monocytes % (Manual) Eosinophils % (Manual) Basophils % (Manual) Metamyelocytes % Myelocytes % Promyelocytes % Blast Cells % Plasma Cell % (Manual) Other Cells % Nucleated RBC % 0 Nucleated RBCs/100 WBC Differential Comment Diff Path Review Hypersegmented Neuts Atypical Lymphocytes Reactive Lymphocytes Smudge Cells Toxic Granulation Toxic Vacuolation Dohle Bodies Peter Rods Platelet Estimate Plt Morphology Comment RBC Morphology Polychromasia Hypochromasia Basophilic Stippling Anisocytosis Microcytosis Macrocytosis Spherocytes Sickle Cells Target Cells Tear Drop Cells Ovalocytes Stomatocytes Lua-Evarts Bodies Rocky Cells Bite Cells Crenated Cell Acanthocytes (Spur) Rouleaux Schistocytes Sodium Potassium Chloride Carbon Dioxide Anion Gap BUN Creatinine Estim Creat Clear Calc Est GFR (MDRD) Non-Af BUN/Creatinine Ratio Glucose Calcium Urine Color Urine Clarity Urine pH Ur Specific [place] Urine Protein Urine Glucose (UA) Urine Ketones Urine Occult Blood Urine Nitrite Urine Bilirubin Urine Urobilinogen Ur Leukocyte Esterase Urine RBC Urine WBC Ur Squamous Epith Cells Urine Bacteria Urine Mucus Radiography Diagnostic Testing: Clinical Impression(s) from Imaging Studies Chest X-Ray 11/13/24 18:45 IMPRESSION: Cardiomegaly. No acute findings. Reading Location: [facility] Hand X-Ray 11/13/24 18:46 IMPRESSION: DEGENERATIVE OSTEOARTHROSIS. NO ACUTE FINDINGS. Reading Location: [facility] Brain CT 11/13/24 19:57 IMPRESSION: No acute intracranial finding. Reading Location: [facility] Chest CT 11/13/24 19:57 IMPRESSION: Visualization is limited by motion artifact and streak artifact from left chest wall pacemaker. No acute finding on noncontrast examination. Reading Location: [facility] Rhythm Strip Rhythm Strip: Sinus Rhythm Rate: 67 Ectopy: None EKG Initial EKG: Attestation: I personally reviewed and interpreted this EKG as follows: Interpretation: Sinus Rhythm, No Acute Injury Pattern, RBBB and LAFB Discharge Plan Triage Chief Complaint: Fall ED Provider: Jose Goldberg Dx/Rx/DC Orders Clinical Impression: Chest wall contusion, Contusion of back wall of thorax, Contusion of hand, right, Contusion of face, Fall from slip, trip, or stumble Instructions: ED Chest Wall Contusion Prescriptions: New oxycodone-acetaminophen 5-325 mg tablet 1 tab PO Q6H PRN PRN (Reason: Pain) 3 Days Qty: 12 0RF ondansetron 8 mg tablet,disintegrating 8 mg PO Q8H PRN (Reason: nausea and vomiting) Qty: 12 0RF No Action aspirin [Adult Aspirin Regimen] 81 mg tablet,delayed release (DR/EC) 81 mg PO DAILY losartan 25 mg tablet 25 mg PO DAILY furosemide 20 mg tablet 20 mg PO DAILY metoprolol succinate 25 mg tablet extended release 24 hr 25 mg PO QHS simethicone 80 mg tablet,chewable 160 mg PO PRN PRN (Reason: abdominal distention) Primary Care Provider: Mandeep Houser Referrals: Mandeep Houser DO [Primary Care Provider] - 1 Week if not improving Activity Restrictions/Additional Instructions: Use incentive spirometer 5 times in a row, at least 3 times a day at least for the first half of the week or so, to encourage you to take deep breaths which will help prevent you from developing pneumonia from having pain with breathing. Consider taking a stool softener along with the narcotic pain medication, as it can cause constipation. MiraLAX 1 capful daily dissolved in 8 ounces of any fluid is an option for this. Print Language: Icelandic Disposition Disposition: Home, Self Care What to do if you have Problems For any increased pain, shortness of breath, bleeding, nausea or vomiting, chestpain, or any unexpected problems, contact your Primary Care Provider. Call [facility] ([phone]) or report to the closest Emergency Room. Call 911 if necessary. 11/13/242232 <Electronically signed by Jose Goldberg MD> Cosigner Signature (if applicable): CC: Dr. Mandeep Houser DO ~ Signed [facility] Work Phone: 1(445) 229-250906-25-2025 NoteHNO ID: [id number] Author: CHASIDY LYN MA Service: ? Author Type: Employee Health Nurse Type: Progress Notes Filed: 11/05/2024 14:20 Note Text: POPULATION HEALTH NAVIGATION OUTREACH Action/FYI updated appointment note Topic Due (Y or N) Comments Medicare Wellness y PCP Follow up Colorectal Cancer Screening Controlling Blood Pressure A1C HCC y Flu Vaccine Care Everywhere Reviewed MyChart Activation Updated Appointment Note Reason for Outreach Care Gap/HCC or Scheduling Wellness Visits Care Gaps due: Medicare Annual Wellness Visit Patient Contacted: Unable or unnecessary to reach patient: HCC related Patient already scheduled Updated appointment notes Navigation Signature: Chasidy Lyn MA November 05, 2024 2:18 [facility] History of Present illness Narrative* Chasidy Lyn MA - 11/05/2024 2:18 PM EDT POPULATION HEALTH NAVIGATION OUTREACH Action/FYI updated appointment note Topic Due (Y or N) Comments Medicare Wellness y PCP Follow up Colorectal Cancer Screening Controlling Blood Pressure A1C HCC y Flu Vaccine Care Everywhere Reviewed MyChart Activation Updated Appointment Note Reason for Outreach Care Gap/HCC or Scheduling Wellness Visits Care Gaps due: Medicare Annual Wellness Visit Patient Contacted: Unable or unnecessary to reach patient: HCC related Patient already scheduled Updated appointment notes Navigation Signature: Chasidy Lyn MA November 05, 2024 2:18 PM documented in this encounterK[facility]-25-2025 NotePatient Outreach (NETNAV) SANDRA SCHMITZ ([id number]) 1945 F Date Time Provider Department 11/05/24 CHASIDY LYN NETRIKKIV During your visit today, we recorded the following information about you: Chasidy Lyn MA 11/05/2024 2:20 PM Signed POPULATION HEALTH NAVIGATION OUTREACH Action/FYI updated appointment note Topic Due (Y or N) Comments Medicare Wellness y PCP Follow up Colorectal Cancer Screening Controlling Blood Pressure A1C HCC y Flu Vaccine Care Everywhere Reviewed MyChart Activation Updated Appointment Note Reason for Outreach Care Gap/HCC or Scheduling Wellness Visits Care Gaps due: Medicare Annual Wellness Visit Patient Contacted: Unable or unnecessary to reach patient: HCC related Patient already scheduled Updated appointment notes Navigation Signature: Chasidy Lyn MA November 05, 2024 2:18 PM Allergies As of Date: 11/05/2024 Noted Allergy Reaction EMILIO INHIBITORS 05/03/2020 5 - Intolerance Comments: Short of breath, symptoms of heart failure BETA-BLOCKERS (BETA-ADRENERGIC BL*05/03/2020 5 - Intolerance Comments: Short of breath, symptoms of heart failure AUGMENTIN (AMOXICILLIN-POT CLAVUL*01/23/2013 8 - GI Upset CODEINE 10/24/2012 1 - Mental Status Change Comments: Patient felt like she was made out of lead ENTRESTO (SACUBITRIL-VALSARTAN) 02/07/2024 5 - Intolerance LIPITOR (ATORVASTATIN) 05/05/2020 17 - Myalgia Comments: Muscle aches SULFA (SULFONAMIDE ANTIBIOTICS) 04/28/2020 5 - Intolerance AMLODIPINE 04/28/2020 5 - Intolerance Comments: lightheaded Date Reviewed: 11/03/2024 Reviewed by: Dilcia Hooks MA - Fully Assessed Reason for Visit: Population Health Navigation Outreach [3910] Cmt: [facility] Prescriptions as of 11/05/2024 - metoprolol succinate ER (TOPROL XL) 25 mg 24 hr tablet Take 2 tablets by mouth daily at bedtime. - levothyroxine (LEVOXYL) 100 mcg tablet Take 1 tablet by mouth daily before breakfast. - potassium chloride (K-TAB) 10 mEq tablet Take 1 tablet by mouth once daily. - furosemide (LASIX) 20 mg tablet Take 1 tablet by mouth once daily. - losartan (COZAAR) 25 mg tablet Take 1 tablet by mouth once daily. - aluminum-magnesium hydroxide-simethicone 200-200-20 mg/5 mL suspension Take 30 mL by mouth every 6 hours as needed. - dicyclomine (BENTYL) 10 mg capsule Take 1 capsule by mouth three times a day as needed (abdominal pain) for up to 20 doses. - acetaminophen (TYLENOL) 500 mg tablet Take 2 tablets by mouth every 8 hours as needed for pain. - cyanocobalamin (VITAMIN B-12) 1,000 mcg tab Take 1 tablet by mouth once daily. - Cholecalciferol, Vitamin D3, 50 mcg (2,000 unit) cap Take 2 capsules by mouth once daily. - aspirin, enteric coated (ECOTRIN LOW STRENGTH) 81 mg EC tablet Take 1 tablet by mouth once daily. Problem List As Of Date 11/05/2024 Noted Resolved IBS (irritable bowel syndrome) [K58.9] 01/23/2013 Palpitations [R00.2] 12/16/2014 Obesity, Class I, BMI 30-34.9 [E66.811] 03/10/2020 Shortness of breath [R06.02] 05/03/2020 06/14/2020 Acute on chronic systolic CHF (congestive heart*05/03/2020 Homozygous Factor V Leiden mutation (HCC) [D68.*05/03/2020 Hypothyroidism [E03.9] 01/24/2018 Chest pain [R07.9] 05/03/2020 06/14/2020 Post-operative state [Z98.890] 05/24/2020 06/14/2020 Rectocele [N81.6] 05/25/2020 Cystocele, midline [N81.11] 05/25/2020 Aspiration pneumonia (HCC) [J69.0] 05/30/2020 09/22/2020 Acute acalculous cholecystitis [K81.0] 05/30/2020 Primary hypertension [I10] 06/14/2020 Acute idiopathic gout involving toe of left cristal*09/22/2020 Diverticulitis [K57.92] 09/29/2020 Hypokalemia [E87.6] 09/29/2020 Hospital discharge follow-up [Z09] 12/06/2020 Tubular adenoma of colon [D12.6] 12/09/2020 Mixed hyperlipidemia [E78.2] 12/29/2020 Chronic pain of right ankle [M25.571, G89.29] 12/29/2020 Kidney insufficiency [N28.9] 12/29/2020 Chronic systolic congestive heart failure (HCC)*02/14/2021 Valvular heart disease [I38] 04/06/2021 Colon cancer screening [Z12.11] 04/06/2021 Left bundle branch block [I44.7] 05/23/2021 Left shoulder pain [M25.512] 07/11/2021 Lateral epicondylitis of left elbow [M77.12] 07/11/2021 Cardiomegaly [I51.7] 02/13/2022 Chronic bilateral thoracic back pain [M54.6, G8*07/18/2022 Rib pain on right side [R07.81] 07/18/2022 Somatic dysfunction of rib [M99.08] 07/18/2022 Somatic dysfunction of spine, thoracic [M99.02] 07/18/2022 Somatic dysfunction of spine, cervical [M99.01] 07/18/2022 Foot drop, right [M21.371] 08/02/2022 Arthrosis of ankle, right [M19.071] 08/02/2022 Coronary artery disease involving [place] lopez*08/02/2022 Vitamin D deficiency [E55.9] 08/02/2022 Somatic dysfunction of head region [M99.00] 08/10/2022 Chronic neck pain [M54.2, G89.29] 08/24/2022 Chronic bronchitis (HCC) [J42] 09/11/2022 SVT (suprave (more content not included)...[facility]25 NoteHNO ID: [id number] Author: DILCIA HOOKS MA Service: ? Author Type: Employee Health Nurse Type: Progress Notes Filed: 11/03/2024 15:58 Note Text: EVENT MONITOR DISPOSABLE PATCH INSTRUCTIONS Patient Name: Sandra Schmitz [facility] Number: [id number] Skin prepped and cleansed with alcohol Patch secured to prepped area Monitor Activated Serial #: [id number] Patient Instructed: Prescribed order timeframe Bathing guidelines Usage of event button and diary documentation Return of monitor at the end of prescribed order Call with problems [phone] or [phone]. [phone] Patient expresses a good understanding of instructions Dilcia Hooks [facility]06-23-2025 History of Present illness Narrative* Dilcia Hooks MA - 11/03/2024 3:57 PM EDT EVENT MONITOR DISPOSABLE PATCH INSTRUCTIONS Patient Name: Sandra Schmitz [facility] Number: [id number] Skin prepped and cleansed with alcohol Patch secured to prepped area Monitor Activated Serial #: [id number] Patient Instructed: Prescribed order timeframe Bathing guidelines Usage of event button and diary documentation Return of monitor at the end of prescribed order Call with problems [phone] or [phone]. [phone] Patient expresses a good understanding of instructions Dilcia Hooks MA documented in this encounterK[facility]06-23-2025 History of Present illness Narrative* HillMorenita youMELI.DIRECTOR OF DONOR RELATIONS - 11/03/2024 3:30 PM EDT Images from the original note were not included. [facility] V[facility] Department of Cardiovascular Medicine SECTION OF ELECTROPHYSIOLOGY AND PACING OUTPATIENT VISIT DATE November 03, 2024 OUTPATIENT VISIT TYPE ESTABLISHED PRIMARY CARE PHYSICIAN: Mandeep Houser [address] [place] [address] CHIEF COMPLAINT: Follow Up HISTORY OF PRESENT ILLNESS: Ms. Schmitz is a 79 year old female, patient of Dr. Wellington and Dr. Wells who presents today for a cardiovascular medicine follow-up visit regarding CUT PLUG PACKER-D which was placed in July of last year during which time she had been admitted to [facility] for acute HFrEF and inability to initiate GDMT. She was deemed excellent candidate for CUT PLUG PACKER therapy and thus had MDT CUT PLUG PACKER-D inserted. Since then, Ms. Schmitz reports that overall she has been feeling well. She has noted over the last several months that when shh is anxious or rushing, she may feel her heart racing with some palpitations. When she rests, symptoms resolve. Overall, since device insertion, she has significantly improved functional capacity. She is compliant with all medications. PMH: Chronic NICM s/p MDT CUT PLUG PACKER-D, dyslipidemia, hypothyroidism, Factor V Leiden, IBS, h/o gout PAST MEDICAL HISTORY Diagnosis Date Acute acalculous cholecystitis 05/30/2020 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 09/22/2020 Acute on chronic systolic CHF (congestive heart failure) ([facility]) 05/03/2020 Aspiration pneumonia ([facility]) 05/30/2020 Chest pain 05/03/2020 Chest pressure 01/23/2013 Chronic diastolic congestive heart failure (HCC) 02/14/2021 Clostridium difficile diarrhea 09/28/2020 Complete uterovaginal prolapse Cystocele, midline Essential hypertension 06/14/2020 Homozygous Factor V Leiden mutation (HCC) 05/03/2020 Hypothyroidism IBS (irritable bowel syndrome) 01/23/2013 Palpitation CHRONIC Post-operative state 05/24/2020 Rectocele 05/25/2020 Shortness of breath 05/03/2020 Status post laparoscopic hysterectomy 05/30/2020 Tubular adenoma of colon 12/09/2020 Uterine prolapse 05/03/2020 PAST SURGICAL HISTORY Procedure Laterality Date COLONOSCOPY 01/07/2015 COLONOSCOPY 12/05/2021 repeat in 5 years COLONOSCOPY GEN ANES 12/06/2009 X3 LAST ONE IN 2009 EGD 11/08/2012 EGD 12/05/2021 INSERT/REPL DEFIB LEAD/GENER OTHR 07/2023 w/ Pacemaker PAST SURGICAL HISTORY OF 05/14/1999 left foot bunionectomy w/screws PAST SURGICAL HISTORY OF 05/14/1981 ectopic w/tube removal PAST SURGICAL HISTORY OF 2009 CYST REMOVED FROM UTERUS PAST SURGICAL HISTORY OF 05/24/2020 TVH, partial colpectomy, anterior colporrhaphy, Dennis transobturator midurethral sling, cystourethroscopy, rectocele repair with perineorrhaphy, laparoscopic lysis of adhesions and excision of bilateral adnexal structures PAST SURGICAL HISTORY OF 09/07/2020 Laparoscopic cholecystectomy with intraoperative cholangiograms. Dr. Ragsdale SOCIAL HISTORY Social History Tobacco Use Smoking status: Former Current packs/day: 0.00 Types: Cigarettes Quit date: 10/22/2002 Years since quittin.0 Smokeless tobacco: Never Vaping Use Vaping status: Never Used Substance Use Topics Alcohol use: No Drug use: No FAMILY HISTORY Problem Relation Age of Onset Blood Disease Mother Coronary Artery Disease Mother Cancer Mother lung Blood Disease Father Coronary Artery Disease Father Heart Father pacemaker Diabetes Father Breast Cancer Sister younger sis. COPD Brother Hypertension Brother Heart disease Brother Coronary Artery Disease Maternal Grandmother Ischemic Heart Disease Maternal Grandfather Coronary Artery Disease Maternal Grandfather Coronary Artery Disease Daughter ALLERGIES Allergen Reactions Emilio Inhibitors Intolerance Short of breath, symptoms of heart failure Beta-Blockers (Beta* Intolerance Short of breath, symptoms of heart failure Augmentin [Amoxicil* GI Upset Codeine Mental Status Change Patient felt like she was made out of lead Entresto [Sacubitri* Intolerance Lipitor [Atorvastat* Myalgia Muscle aches Sulfa (Sulfonamide * Intolerance Amlodipine Intolerance lightheaded MEDICATIONS: levothyroxine (LEVOXYL) 100 mcg tablet Take 1 tablet by mouth daily before breakfast. metoprolol succinate ER (TOPROL XL) 25 mg 24 hr tablet Take 1 tablet by mouth daily at bedtime. potassium chloride (K-TAB) 10 mEq tablet Take 1 tablet by mouth once daily. furosemide (LASIX) 20 mg tablet Take 1 tablet by mouth once daily. losartan (COZAAR) 25 mg tablet Take 1 tablet by mouth once daily. aluminum-magnesium hydroxide-simethicone 200-200-20 mg/5 mL suspension Take 30 mL by mouth every 6 hours as needed. dicyclomine (BENTYL) 10 mg capsule Take 1 capsule by mouth three times a day as needed (abdominal pain) for up to 20 doses. acetaminophen (TYLENOL) 500 mg tablet Take 2 tablets by mouth every 8 hours as needed for pain. cyanocobalamin (VITAMIN B-12) 1,000 mcg tab Take 1 tablet by mouth once daily. Cholecalciferol, Vitamin D3, 50 mcg (2,000 unit) cap Take 2 capsules by mouth once daily. aspirin, enteric coated (ECOTRIN LOW STRENGTH) 81 mg EC tablet Take 1 tablet by mouth once daily. REVIEW OF SYSTEMS: ROS is otherwise negative apart from what has been documented in HPI PHYSICAL EXAMINATION: BP 119/71 Pulse 70 Ht 162.6 cm (5' 4) Wt 86.2 kg (190 lb 0.6 oz) SpO2 93% BMI 32.62 kg/m General: Well appearing, in no acute distress, speaking in complete sentences. Skin: No clubbing, no cyanosis. Neck: No jugular venous distention, no carotid bruits Lungs: Clear to auscultation bilaterally, no wheezing or rhonchi. Heart: Regular rhythm, S1, S2 present Abdomen: Soft, nontender, bowel sounds present Extremities: No peripheral edema . Grade 2/4 distal pulses bilaterally. Neuro: Oriented to person, place and time, alert, cooperative, gait coordinated. Left subclavian device site: clean, dry and intact with no drainage, signs of infection, erythema or erosion CARDIOVASCULAR MEDICINE TESTING: Labs: Latest Ref Rng 04/22/2024 07/08/2024 WBC 3.70 - 11.00 k/uL 14.44 (H) 8.87 RBC 3.90 - 5.20 m/uL 4.47 4.74 Hemoglobin 11.5 - 15.5 g/dL 12.5 13.6 Hematocrit 36.0 - 46.0 % 41.0 43.4 MCV 80.0 - 100.0 fL 91.7 91.6 MCH 26.0 - 34.0 pg 28.0 28.7 MCHC 30.5 - 36.0 g/dL 30.5 31.3 RDW-CV 11.5 - 15.0 % 14.1 14.5 Platelet Count 150 - 400 k/uL 317 430 (H) Latest Ref Rng 04/22/2024 07/08/2024 Glucose 74 - 99 mg/dL 90 86 BUN 7 - 21 mg/dL 19 23 (H) Creatinine 0.58 - 0.96 mg/dL 0.97 (H) 0.85 Sodium 136 - 144 mmol/L 141 140 Potassium 3.7 - 5.1 mmol/L 4.1 4.9 Chloride 98 - 107 mmol/L 103 102 CO2 22 - 30 mmol/L 27 26 Anion Gap 8 - 15 mmol/L 11 12 eGFR >=60 mL/min/1.73m 60 71 Latest Ref Rng 01/29/2024 07/08/2024 NT Pro BNP <450 pg/mL 2,145 (H) 2,199 (H) ECG 11/03/2024: Atrial sensed, vetnricular paced rhythm ECHO (08/15/2024 12:49 PM) - LVEF ~24% with normal RV size and mildly reduced function - Positive saline suty on prior ECHO Device Check 11/03/2024: MULTIPLE LEAD ICD. * /V-BiVP. NSR * Normal Device Function * Alerts or events: None * Battery: OK, 10.17 yrs * Sensing, impedance and thresholds reviewed and tested * Presenting Rhythm: /V-BiVP * Underlying Rhythm: NSR. * Heart Rate Histograms reviewed * Pacing and Detection Parameters were evaluated. AP 0.1%. BiVP 87.1%. NM CARDIAC PERF STRESS/PHARM (07/11/2023 10:57 AM) - No evidence of inducible ischemia - No scarred myocardium I have personally reviewed the Electrocardiogram and Laboratory Testing. IMPRESSION/PLAN: Chronic Non-ischemic cardiomyopathy s/p MDT CUT PLUG PACKER-D (07/2023) ECG today demonstrates atrial sensed, ventricular paced rhythm VR 63 Device check compelted today demonstrates sub-optimal BiV Pacing at 87%, however stable lead impedances and thresholds. Discussed device check with Dr. Wellington- particularly in light of sub-optimal BiV pacing. Her base rate is at 45, but AVD is 130 ms to promote BiV Pacing. We will obtain 3 day ZIO monitor to assess for PVC burden to determine if this is contributing to sub-optimal pacing. Results will be reviewed with Dr. Wellington and either medication vs programming changes will occur. GDMT: Beta lorenzo: Toprol XL 50 mg QHS--increased today by Dr. Wells ARB: Losartan 25 mg every day MRA: N/A due to intolerance SGL2i: N/A due to intolerance Device: MDT CUT PLUG PACKER-D (BiV pacing 87.1%) Will contact patient with results and plan. Will arrange for 6 month follow up with DR. Wellington withdevice check prior. If BiVP is optimized, then can extend to annual follow up. CONTACT INFORMATION: Morenita Hill APRN.TIM Cardiology [id number] [facility] [address] [facility] [place] [address] Dept: [phone] Dept documented in this encounterK[facility]06-23-2025 NoteHNO ID: [id number] Author: MORENITA HILL APRN.TIM Service: ? Author Type: Nurse Practitioner Type: Progress Notes Filed: 11/03/2024 15:59 Note Text: [facility] V[facility] Department of Cardiovascular Medicine SECTION OF ELECTROPHYSIOLOGY AND PACING OUTPATIENT VISIT DATE November 03, 2024 OUTPATIENT VISIT TYPE ESTABLISHED PRIMARY CARE PHYSICIAN: Mandeep Houser [address] [place] [address] CHIEF COMPLAINT: Follow Up HISTORY OF PRESENT ILLNESS: Ms. Schmitz is a 79 year old female, patient of Dr. Wellington and Dr. Wells who presents today for a cardiovascular medicine follow-up visit regarding CUT PLUG PACKER-D which was placed in July of last year during which time she had been admitted to [facility] for acute HFrEF and inability to initiate GDMT. She was deemed excellent candidate for CUT PLUG PACKER therapy and thus had MDT CUT PLUG PACKER-D inserted. Since then, Ms. Schmitz reports that overall she has been feeling well. She has noted over the last several months that when shh is anxious or rushing, she may feel her heart racing with some palpitations. When she rests, symptoms resolve. Overall, since device insertion, she has significantly improved functional capacity. She is compliant with all medications. PMH: Chronic NICM s/p MDT CUT PLUG PACKER-D, dyslipidemia, hypothyroidism, Factor V Leiden, IBS, h/o gout PAST MEDICAL HISTORY Diagnosis Date Acute acalculous cholecystitis 05/30/2020 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 09/22/2020 Acute on chronic systolic CHF (congestive heart failure) ([facility]) 05/03/2020 Aspiration pneumonia ([facility]) 05/30/2020 Chest pain 05/03/2020 Chest pressure 01/23/2013 Chronic diastolic congestive heart failure ([facility]) 02/14/2021 Clostridium difficile diarrhea 09/28/2020 Complete uterovaginal prolapse Cystocele, midline Essential hypertension 06/14/2020 Homozygous Factor V Leiden mutation ([facility]) 05/03/2020 Hypothyroidism IBS (irritable bowel syndrome) 01/23/2013 Palpitation CHRONIC Post-operative state 05/24/2020 Rectocele 05/25/2020 Shortness of breath 05/03/2020 Status post laparoscopic hysterectomy 05/30/2020 Tubular adenoma of colon 12/09/2020 Uterine prolapse 05/03/2020 PAST SURGICAL HISTORY Procedure Laterality Date COLONOSCOPY 01/07/2015 COLONOSCOPY 12/05/2021 repeat in 5 years COLONOSCOPY GEN ANES 12/06/2009 X3 LAST ONE IN 2009 EGD 11/08/2012 EGD 12/05/2021 INSERT/REPL DEFIB LEAD/GENER OTHR 07/2023 w/ Pacemaker PAST SURGICAL HISTORY OF 05/14/1999 left foot bunionectomy w/screws PAST SURGICAL HISTORY OF 05/14/1981 ectopic w/tube removal PAST SURGICAL HISTORY OF 2009 CYST REMOVED FROM UTERUS PAST SURGICAL HISTORY OF 05/24/2020 TVH, partial colpectomy, anterior colporrhaphy, Dennis transobturator midurethral sling, cystourethroscopy, rectocele repair with perineorrhaphy, laparoscopic lysis of adhesions and excision of bilateral adnexal structures PAST SURGICAL HISTORY OF 09/07/2020 Laparoscopic cholecystectomy with intraoperative cholangiograms. Dr. Ragsdale SOCIAL HISTORY Social History Tobacco Use Smoking status: Former Current packs/day: 0.00 Types: Cigarettes Quit date: 10/22/2002 Years since quittin.0 Smokeless tobacco: Never Vaping Use Vaping status: Never Used Substance Use Topics Alcohol use: No Drug use: No FAMILY HISTORY Problem Relation Age of Onset Blood Disease Mother Coronary Artery Disease Mother Cancer Mother lung Blood Disease Father Coronary Artery Disease Father Heart Father pacemaker Diabetes Father Breast Cancer Sister younger sis. COPD Brother Hypertension Brother Heart disease Brother Coronary Artery Disease Maternal Grandmother Ischemic Heart Disease Maternal Grandfather Coronary Artery Disease Maternal Grandfather Coronary Artery Disease Daughter ALLERGIES Allergen Reactions Emilio Inhibitors Intolerance Short of breath, symptoms of heart failure Beta-Blockers (Beta* Intolerance Short of breath, symptoms of heart failure Augmentin [Amoxicil* GI Upset Codeine Mental Status Change Patient felt like she was made out of lead Entresto [Sacubitri* Intolerance Lipitor [Atorvastat* Myalgia Muscle aches Sulfa (Sulfonamide * Intolerance Amlodipine Intolerance lightheaded MEDICATIONS: levothyroxine (LEVOXYL) 100 mcg tablet Take 1 tablet by mouth daily before breakfast. metoprolol succinate ER (TOPROL XL) 25 mg 24 hr tablet Take 1 tablet by mouth daily at bedtime. potassium chloride (K-TAB) 10 mEq tablet Take 1 tablet by mouth once daily. furosemide (LASIX) 20 mg tablet Take 1 tablet by mouth once daily. losartan (COZAAR) 25 mg tablet Take 1 tablet by mouth once daily. aluminum-magnesium hydroxide-simethicone 200-200-20 mg/5 mL suspension Take 30 mL by mouth every 6 hours as needed. dicyclomine (BENTYL) 10 mg capsule Take 1 capsule by mouth thre (more content not included)...[facility]06-23-2025 NoteHNO ID: [id number] Author: PILI WELLS MD Service: ? Author Type: Physician Type: Progress Notes Filed: 11/09/2024 17:30 Note Text: Heart and Vascular [facility] SECTION OF HEART FAILURE and CARDIAC TRANSPLANT MEDICINE [facility] OUTPATIENT VISIT DATE November 03, 2024 OUTPATIENT VISIT TYPE Established PRIMARY CARE PHYSICIAN: Mandeep Houser [address] [place] [address] CHIEF COMPLAINT: Follow Up HISTORY OF PRESENT ILLNESS: Sandra Schmitz is a 78 year old female with a medical history that includes non-ischemic CM, HTN, Hypothyroidism, LBBB s/p CUT PLUG PACKER-D who is referred to me for heart failure management. Sandra Schmitz was initially diagnosed with non-ischemic CM ~ 4 yrs ago and was doing well on losartan and metoprolol. She had progressive sxs of dyspnea on exertion, therefore she was started on entresto and farxiga and her sxs persisted and she was admitted locally in [place] and then transferred to for CUT PLUG PACKER consideration. Interval History: Sandra Schmitz was last seen in this clinic on 01/15/24. Since the last visit Sandra Schmitz, has done well. On follow up today, she reports feeling well. She mentions that she has had a few episodes where she feels like she gets more short of breath and cannot quite catch herself but occurs infrequently. No LE edema, no orthopnea, no PND, no abdominal bloating/distention, no LH, no syncope, no device shocks. Scoliosis +, no carpal tunnel, no spinal stenosis. Weight on home scale: 188-190 lbs. Weight stable here. Activity/Exercise: continuing to stay active doing things. Home BP: not checking. 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 Echo 06/2023: LVEF 26%, LVEDd 5.8cm, RV wnl Echo 09/2022: LVEF 30%, LVEDd 4.6cm, RV wnl Echo 02/2022: LVEF 30%, RV wnl Echo 04/2020: LVEF 40%, LVEdd 4.8cm. LBBB: chronic. S/p CUT PLUG PACKER 07/2023 Non-obstructive CAD: stable, ischemic testing recently with no ischemia or infarction. 06/2023 Nuc SPECT: no ischemia or infarction. 10/2021 Cath: mod LAD, D1 prox 40%, mild RCA disease dominant, EF 35%. Hx of HTN: PAST MEDICAL HISTORY Diagnosis Date Acute acalculous cholecystitis 05/30/2020 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 09/22/2020 Acute on chronic systolic CHF (congestive heart failure) (HCC) 05/03/2020 Aspiration pneumonia (HCC) 05/30/2020 Chest pain 05/03/2020 Chest pressure 01/23/2013 Chronic diastolic congestive heart failure ([facility]) 02/14/2021 Clostridium difficile diarrhea 09/28/2020 Complete uterovaginal prolapse Cystocele, midline Essential hypertension 06/14/2020 Homozygous Factor V Leiden mutation (HCC) 05/03/2020 Hypothyroidism IBS (irritable bowel syndrome) 01/23/2013 Palpitation CHRONIC Post-operative state 05/24/2020 Rectocele 05/25/2020 Shortness of breath 05/03/2020 Status post laparoscopic hysterectomy 05/30/2020 Tubular adenoma of colon 12/09/2020 Uterine prolapse 05/03/2020 PAST SURGICAL HISTORY Procedure Laterality Date COLONOSCOPY 01/07/2015 COLONOSCOPY 12/05/2021 repeat in 5 years COLONOSCOPY GEN ANES 12/06/2009 X3 LAST ONE IN 2009 EGD 11/08/2012 EGD 12/05/2021 INSERT/REPL DEFIB LEAD/GENER OTHR 07/2023 w/ Pacemaker PAST SURGICAL HISTORY OF 05/14/1999 left foot bunionectomy w/screws PAST SURGICAL HISTORY OF 05/14/1981 ectopic w/tube removal PAST SURGICAL HISTORY OF 2009 CYST REMOVED FROM UTERUS PAST SURGICAL HISTORY OF 05/24/2020 TVH, partial colpectomy, anterior colporrhaphy, Dennis transobturator midurethral sling, cystourethroscopy, rectocele repair with perineorrhaphy, laparoscopic lysis of adhesions and excision of bilateral adnexal structures PAST SURGICAL HISTORY OF 09/07/2020 Laparoscopic cholecystectomy with intraoperative cholangiograms. Dr. Ragsdale SOCIAL HISTORY Social History Tobacco Use Smoking status: Former Current packs/day: 0.00 Types: Cigarettes Quit date: 10/22/2002 Years since quittin.0 Smokeless tobacco: Never Vaping Use Vaping status: Never Used Substance Use Topics Alcohol use: No Drug use: No FAMILY HISTORY Problem Relation Age of Onset Blood Disease Mother Coronary Artery Disease Mother Cancer Mother lung Blood Disease Father Coronary Artery Disease Father Heart Father pacemaker Diabetes Father Breast Cancer Sister younger sis. COPD Brother Hypertension Brother Heart disease Brother Coronary Artery Disease Maternal Grandmother Ischemic Heart Disease Maternal Grandfather Coronary Artery Disease Maternal Grandfather Coronary Artery Disease Daughter ALLERGIES: ALLERGIES Allergen Reactions Emilio Inhibitors Intolerance Short of breath, symptoms of heart failure Beta-Blockers (Beta* Intolerance Short of breath, sympto (more content not included)...[facility] 11-03-2024 History of Present illness Narrative* Pili Wells MD - 11/03/2024 2:17 PM EDT Images from the original note were not included. [facility] [place] [facility] SECTION OF HEART FAILURE and CARDIAC TRANSPLANT MEDICINE [facility] OUTPATIENT VISIT DATE November 03, 2024 OUTPATIENT VISIT TYPE Established PRIMARY CARE PHYSICIAN: Mandeep Houser [address] [place] [address] CHIEF COMPLAINT: Follow Up HISTORY OF PRESENT ILLNESS: Sandra Schmitz is a 78 year old female with a medical history that includes non-ischemic CM, HTN, Hypothyroidism, LBBB s/p CUT PLUG PACKER-D who is referred to me for heart failure management. Sandra Schmitz was initially diagnosed with non-ischemic CM ~ 4 yrs ago and was doing well on losartan and metoprolol. She had progressive sxs of dyspnea on exertion, therefore she was started on entresto and farxiga and her sxs persisted and she was admitted locally in [place] and then transferredto for CUT PLUG PACKER consideration. Interval History: Sandra Schmitz was last seen in this clinic on 01/15/24. Since the last visit Sandra Schmitz, has done well. On follow up today, she reports feeling well. She mentions that she has had a few episodeswhere she feels like she gets more short of breath and cannot quite catch herself but occurs infrequently. No LE edema, no orthopnea, no PND, no abdominal bloating/distention, no LH, no syncope, nodevice shocks. Scoliosis +, no carpal tunnel, no spinal stenosis. Weight on home scale: 188-190 lbs. Weight stable here. Activity/Exercise: continuing to stay active doing things. Home BP: not checking. 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 Echo 06/2023: LVEF 26%, LVEDd 5.8cm, RV wnl Echo 09/2022: LVEF 30%, LVEDd 4.6cm, RV wnl Echo 02/2022: LVEF 30%, RV wnl Echo 04/2020: LVEF 40%, LVEdd 4.8cm. LBBB: chronic. S/p CUT PLUG PACKER 07/2023 Non-obstructive CAD: stable, ischemic testing recently with no ischemia or infarction. 06/2023 Nuc SPECT: no ischemia or infarction. 10/2021 Cath: mod LAD, D1 prox 40%, mild RCA disease dominant, EF 35%. Hx of HTN: PAST MEDICAL HISTORY Diagnosis Date Acute acalculous cholecystitis 05/30/2020 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 09/22/2020 Acute on chronic systolic CHF (congestive heart failure) ([facility]) 05/03/2020 Aspiration pneumonia ([facility]) 05/30/2020 Chest pain 05/03/2020 Chest pressure 01/23/2013 Chronic diastolic congestive heart failure ([facility]) 02/14/2021 Clostridium difficile diarrhea 09/28/2020 Complete uterovaginal prolapse Cystocele, midline Essential hypertension 06/14/2020 Homozygous Factor V Leiden mutation ([facility]) 05/03/2020 Hypothyroidism IBS (irritable bowel syndrome) 01/23/2013 Palpitation CHRONIC Post-operative state 05/24/2020 Rectocele 05/25/2020 Shortness of breath 05/03/2020 Status post laparoscopic hysterectomy 05/30/2020 Tubular adenoma of colon 12/09/2020 Uterine prolapse 05/03/2020 PAST SURGICAL HISTORY Procedure Laterality Date COLONOSCOPY 01/07/2015 COLONOSCOPY 12/05/2021 repeat in 5 years COLONOSCOPY GEN ANES 12/06/2009 X3 LAST ONE IN 2009 EGD 11/08/2012 EGD 12/05/2021 INSERT/REPL DEFIB LEAD/GENER OTHR 07/2023 w/ Pacemaker PAST SURGICAL HISTORY OF 05/14/1999 left foot bunionectomy w/screws PAST SURGICAL HISTORY OF 05/14/1981 ectopic w/tube removal PAST SURGICAL HISTORY OF 2009 CYST REMOVED FROM UTERUS PAST SURGICAL HISTORY OF 05/24/2020 TVH, partial colpectomy, anterior colporrhaphy, Dennis transobturator midurethral sling, cystourethroscopy, rectocele repair with perineorrhaphy, laparoscopic lysis of adhesions and excision of bilateral adnexal structures PAST SURGICAL HISTORY OF 09/07/2020 Laparoscopic cholecystectomy with intraoperative cholangiograms. Dr. Ragsdale SOCIAL HISTORY Social History Tobacco Use Smoking status: Former Current packs/day: 0.00 Types: Cigarettes Quit date: 10/22/2002 Years since quittin.0 Smokeless tobacco: Never Vaping Use Vaping status: Never Used Substance Use Topics Alcohol use: No Drug use: No FAMILY HISTORY Problem Relation Age of Onset Blood Disease Mother Coronary Artery Disease Mother Cancer Mother lung Blood Disease Father Coronary Artery Disease Father Heart Father pacemaker Diabetes Father Breast Cancer Sister younger sis. COPD Brother Hypertension Brother Heart disease Brother Coronary Artery Disease Maternal Grandmother Ischemic Heart Disease Maternal Grandfather Coronary Artery Disease Maternal Grandfather Coronary Artery Disease Daughter ALLERGIES: ALLERGIES Allergen Reactions Emilio Inhibitors Intolerance Short of breath, symptoms of heart failure Beta-Blockers (Beta* Intolerance Short of breath, symptoms of heart failure Augmentin [Amoxicil* GI Upset Codeine Mental Status Change Patient felt like she was made out of lead Entresto [Sacubitri* Intolerance Lipitor [Atorvastat* Myalgia Muscle aches Sulfa (Sulfonamide * Intolerance Amlodipine Intolerance lightheaded CURRENT MEDICATIONS: levothyroxine (LEVOXYL) 100 mcg tablet Take 1 tablet by mouth daily before breakfast. metoprolol succinate ER (TOPROL XL) 25 mg 24 hr tablet Take 1 tablet by mouth daily at bedtime. potassium chloride (K-TAB) 10 mEq tablet Take 1 tablet by mouth once daily. furosemide (LASIX) 20 mg tablet Take 1 tablet by mouth once daily. losartan (COZAAR) 25 mg tablet Take 1 tablet by mouth once daily. aluminum-magnesium hydroxide-simethicone 200-200-20 mg/5 mL suspension Take 30 mL by mouth every 6 hours as needed. dicyclomine (BENTYL) 10 mg capsule Take 1 capsule by mouth three times a day as needed (abdominal pain) for up to 20 doses. acetaminophen (TYLENOL) 500 mg tablet Take 2 tablets by mouth every 8 hours as needed for pain. cyanocobalamin (VITAMIN B-12) 1,000 mcg tab Take 1 tablet by mouth once daily. Cholecalciferol, Vitamin D3, 50 mcg (2,000 unit) cap Take 2 capsules by mouth once daily. aspirin, enteric coated (ECOTRIN LOW STRENGTH) 81 mg EC tablet Take 1 tablet by mouth once daily. REVIEW OF SYSTEMS: 10 point review of systems completed and negative unless mentioned above. PATIENT ENTERED DATA: No data to display 12/09/2020 PHQ-9 Score 2 10/05/2016 01/25/2017 PROMIS Global Health - (T-Scores - the mean of general population = 50. Five points is a clinicallymeaningful difference.) Physical T-Score 44.9 44.9 47.7 47.7 Mental T-Score 53.3 53.3 50.8 50.8 Multiple values from one day are sorted in reverse-chronological order PHYSICAL EXAMINATION: BP 126/85 Pulse 67 Ht 5' 4 (1.63m) Wt 194 lb 3.6 oz (88.1kg) BMI 33.32 kg/(m^2). General: no acute distress. Neck: supple, no carotid bruits. JVD <6 cm H2O. Cardiac: Regular rate and rhythm. Normal S1 and S2. no S3 or S4. no murmurs or gallops. Lungs: Good inspiratory effort, breath sounds equal. Clear to auscultation bilaterally. No wheezing, rhonchi or rales. Abdominal: soft, nontender, non-distended. Extremities: Edema: none. Pulses: normal radial artery pulses. Skin: Warm to touch. No clubbing or cyanosis. Neuro: awake, oriented with no focal neurological deficit. Psychiatric: appropriate mood and affect for her clinical situation. CARDIOVASCULAR MEDICINE TESTING: I personally reviewed the following testing. EKG (today): A sensed V paced, PVCs LABS ALESSIO High Sensitivity 23 11/15/2023 ALESSIO High Sensitivity 25 11/15/2023 ALESSIO High Sensitivity 31 11/15/2023 Cholesterol, Total (mg/dL) Date Value 09/20/2023 206 12/22/2020 232 HDL Cholesterol (mg/dL) Date Value 09/20/2023 52 12/22/2020 48 LDL Cholesterol, Calculated (mg/dL) Date Value 09/20/2023 120 12/22/2020 149 Triglyceride (mg/dL) Date Value 09/20/2023 172 12/22/2020 175 @RESUFAST)HBA1C)@ TSH 3.520 11/18/2023 T3 75 07/21/2022 Iron Date Value Ref Range Status 10/31/2023 51 41 - 186 ug/dL Final TIBC Date Value Ref Range Status 10/31/2023 321 232 - 386 ug/dL Final GDMT: - BB: toprol XL 25mg daily --> increase to 50mg daily - ACEI/ARB/ARNI: losartan 25mg daily - MRA: no - per pt preference - SGLT2: unable to toelrate due to tingling/BADILLO - Vasodilators: no - Device: CUT PLUG PACKER-D - Cardiomems: no - Other: lasix 20mg as needed IMPRESSION and PLAN/Recommendation In summary, Sandra Schmitz is a 78 year old being managed today for the following issues: 1. Non-ischemic Cardiomyopathy/chronic systolic heart failure: NYHA functional class IIb, Stage C heart failure, Clinical Class A - warm and euvolemic. Intolerant/doesn't wish to be on much GDMT as above. Continues to report symptomatic improvement with CUT PLUG PACKER. Echo 08/2023 reviewed - LVEF remains low, LV not as dilated, MR improved as well. + LVH GDMT: as above, increase toprol XL to 50mg daily Labs 07/08/24 reviewed: K 4.9, Cr 0.85, NT pro 2.1K Due to suboptimal CUT PLUG PACKER pacing increase toprol XL to 50mg daily --> seeing EP after this appointment. Discussed amyloid testing as well --> she doesn't wish to pursue currently 2. Non-obsctructive CAD: on aspirin and toprol as above On aspirin 81mg daily, not on statin - reports intolerance. 3. PVCs; LBBB s/p CUT PLUG PACKER-D -- suboptimal CUT PLUG PACKER pacing: increasing toprol XL given PVCs on EKG. Also seeing EP after this visit therefore will await their input as well. Thank you for allowing me to participate in the care of your patient. I will continue to follow up with Sandra Schmitz in my heart failure clinic with plans to see her back in 9 months. In the interim do not hesitate to reach out to me with questions or concerns. I personally spent 32 minutes in total time involved in the management and care of this patient. Wediscussed natural history of disease, current treatment options, and future potential treatment options. We discussed diet, exercise, other non-medical management as above. Pili Wells MD [facility] Trans[facility] [place] [address] Appointment: [phone] documented in this encounterK[facility] Instructions* Patient Instructions* Pili Wells MD - 11/03/2024 2:03 PM EDT Thank you for your visit. It was great to see you today! PLEASE READ ALL THE INSTRUCTIONS Medication changes: Increase toprol Xl to 50mg at bedtime Blood tests: none Referral to other specialties: Additional Testing: Follow up Visit: 6 months Other instructions: Engage in 30 minutes of continuous exercise at least 4 days per week if you can tolerate Please take your blood pressures, heart rate, and weight daily. Please notify us via Vastech if your Systolic BP (top number) < 90 or > 150 consistently. Please record these values and bring them during your next clinic visit so we can adjust your medications appropriately. If blood work or testing is done at an outside facility please send us a message to clarify if we have received the labs. If you have not heard from us regarding lab work or follow up testing please send us a message to ensure that we have received the tests. If you notice a 3 lbs weight gain within 3 days, please call our office for further instructions. Limit the amount of salt intake to less than 2 grams (or 2000 mg) and fluid intake to less than 2 liters (~60 ounces) a day. Please notify if you have any change in medical conditions/new diagnosis/hospitalizations. Your medications may interact with new medication or new diagnosis. Please notify your providers tocheck/monitor for interractions Avoid NSAIDS- Ibuprofen, aleve, motrin inview of heart kidney injury risk Please send a QuadROI message or call with any questions or concerns: Outpatient Number: [phone] Thank you, Pili Wells MD [facility] [address], [place] [address] For [facility] patients , contact: [facility]- Section Of Heart Failure and Cardiac Transplant Medicine [facility] [place] [facility] - Desk [phone] [id number] [facility] Nurse Line and for Refills- call [phone] [facility] Scheduling Line- to make appointments- call [phone] documented in this encounterK[facility]06-10-2025 NoteHNO ID: [id number] Author: MANDEEP HOUSER, DO Service: ? Author Type: Physician Type: Progress Notes Filed: 10/22/2024 07:32 Note Text: CC: Sandra Schmitz is a 79 year old female who presents to the office for OMT HPI: Acute on chronic back pain, started a few weeks ago with significant mid to lower back pain. Has been up doing a lot around her home. Otherwise doesn't know what started or triggered her symptoms, no new bowel or bladder changes. Pain is worse when moving from sitting to standing or with standing or walking. No trauma that she is aware of. Pain was previously severe, had been taking tylenol and using ice and heating pad without relief of symptoms. She is not able to take NSAIDs. Has been doing a lot of new exercise with cardiac rehab which has been held since her back pain flare up. Had improvements after her OMT . She states that she is currently doing much better with her pain flare up- now just mild thoracic and neck and low back discomfort with prolonged standing and walking. PAST MEDICAL HISTORY Diagnosis Date Acute acalculous cholecystitis 05/30/2020 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 09/22/2020 Acute on chronic systolic CHF (congestive heart failure) ([facility]) 05/03/2020 Aspiration pneumonia ([facility]) 05/30/2020 Chest pain 05/03/2020 Chest pressure 01/23/2013 Chronic diastolic congestive heart failure ([facility]) 02/14/2021 Clostridium difficile diarrhea 09/28/2020 Complete uterovaginal prolapse Cystocele, midline Essential hypertension 06/14/2020 Homozygous Factor V Leiden mutation ([facility]) 05/03/2020 Hypothyroidism IBS (irritable bowel syndrome) 01/23/2013 Palpitation CHRONIC Post-operative state 05/24/2020 Rectocele 05/25/2020 Shortness of breath 05/03/2020 Status post laparoscopic hysterectomy 05/30/2020 Tubular adenoma of colon 12/09/2020 Uterine prolapse 05/03/2020 PAST SURGICAL HISTORY Procedure Laterality Date COLONOSCOPY 01/07/2015 COLONOSCOPY 12/05/2021 repeat in 5 years COLONOSCOPY GEN ANES 12/06/2009 X3 LAST ONE IN 2009 EGD 11/08/2012 EGD 12/05/2021 INSERT/REPL DEFIB LEAD/GENER OTHR 07/2023 w/ Pacemaker PAST SURGICAL HISTORY OF 05/14/1999 left foot bunionectomy w/screws PAST SURGICAL HISTORY OF 05/14/1981 ectopic w/tube removal PAST SURGICAL HISTORY OF 2009 CYST REMOVED FROM UTERUS PAST SURGICAL HISTORY OF 05/24/2020 TVH, partial colpectomy, anterior colporrhaphy, Dennis transobturator midurethral sling, cystourethroscopy, rectocele repair with perineorrhaphy, laparoscopic lysis of adhesions and excision of bilateral adnexal structures PAST SURGICAL HISTORY OF 09/07/2020 Laparoscopic cholecystectomy with intraoperative cholangiograms. Dr. Ragsdale Current Outpatient Medications Medication Sig levothyroxine (LEVOXYL) 100 mcg tablet Take 1 tablet by mouth daily before breakfast. metoprolol succinate ER (TOPROL XL) 25 mg 24 hr tablet Take 1 tablet by mouth daily at bedtime. potassium chloride (K-TAB) 10 mEq tablet Take 1 tablet by mouth once daily. furosemide (LASIX) 20 mg tablet Take 1 tablet by mouth once daily. losartan (COZAAR) 25 mg tablet Take 1 tablet by mouth once daily. aluminum-magnesium hydroxide-simethicone 200-200-20 mg/5 mL suspension Take 30 mL by mouth every 6 hours as needed. dicyclomine (BENTYL) 10 mg capsule Take 1 capsule by mouth three times a day as needed (abdominal pain) for up to 20 doses. acetaminophen (TYLENOL) 500 mg tablet Take 2 tablets by mouth every 8 hours as needed for pain. cyanocobalamin (VITAMIN B-12) 1,000 mcg tab Take 1 tablet by mouth once daily. Cholecalciferol, Vitamin D3, 50 mcg (2,000 unit) cap Take 2 capsules by mouth once daily. aspirin, enteric coated (ECOTRIN LOW STRENGTH) 81 mg EC tablet Take 1 tablet by mouth once daily. No current facility-administered medications for this visit. ALLERGIES Allergen Reactions Emilio Inhibitors Intolerance Short of breath, symptoms of heart failure Beta-Blockers (Beta* Intolerance Short of breath, symptoms of heart failure Augmentin [Amoxicil* GI Upset Codeine Mental Status Change Patient felt like she was made out of lead Entresto [Sacubitri* Intolerance Lipitor [Atorvastat* Myalgia Muscle aches Sulfa (Sulfonamide * Intolerance Amlodipine Intolerance lightheaded Social History Tobacco Use Smoking status: Former Current packs/day: 0.00 Types: Cigarettes Quit date: 10/22/2002 Years since quittin.0 Smokeless tobacco: Never Vaping Use Vaping status: Never Used Substance Use Topics Alcohol use: No Drug use: No ROS: See HPI PE: There were no vitals taken for this visit. Gen: AANDOX3, she appears uncomfortable HEENT: PERRLA, EOMs intact b/l, nares without drainage, pharynx without erythema, exudate, lesions, or drainage. Uvula midline. Neck: supple, No cervical LAD, no thyromegaly, no carotid bruits, suboccipital fullness right head, [id number] Right (more content not included)...[facility]06-10-2025 History of Present illness Narrative* Mandeep Houser, - 10/21/2024 11:53 AM EDT CC: Sandra Schmitz is a 79 year old female who presents to the office for OMT HPI: Acute on chronic back pain, started a few weeks ago with significant mid to lower back pain. Has been up doing a lot around her home. Otherwise doesn't know what started or triggered her symptoms, nonew bowel or bladder changes. Pain is worse when moving from sitting to standing or with standing or walking. No trauma that she is aware of. Pain was previously severe, had been taking tylenol and using ice and heating pad without relief of symptoms. She is not able to take NSAIDs. Has been doing a lot of new exercise with cardiac rehab which has been held since her back pain flare up. Had improvements after her OMT . She states that she is currently doing much better with her pain flare up- now just mild thoracic and neck and low back discomfort with prolonged standing and walking. PAST MEDICAL HISTORY Diagnosis Date Acute acalculous cholecystitis 05/30/2020 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 09/22/2020 Acute on chronic systolic CHF (congestive heart failure) ([facility]) 05/03/2020 Aspiration pneumonia ([facility]) 05/30/2020 Chest pain 05/03/2020 Chest pressure 01/23/2013 Chronic diastolic congestive heart failure ([facility]) 02/14/2021 Clostridium difficile diarrhea 09/28/2020 Complete uterovaginal prolapse Cystocele, midline Essential hypertension 06/14/2020 Homozygous Factor V Leiden mutation ([facility]) 05/03/2020 Hypothyroidism IBS (irritable bowel syndrome) 01/23/2013 Palpitation CHRONIC Post-operative state 05/24/2020 Rectocele 05/25/2020 Shortness of breath 05/03/2020 Status post laparoscopic hysterectomy 05/30/2020 Tubular adenoma of colon 12/09/2020 Uterine prolapse 05/03/2020 PAST SURGICAL HISTORY Procedure Laterality Date COLONOSCOPY 01/07/2015 COLONOSCOPY 12/05/2021 repeat in 5 years COLONOSCOPY GEN ANES 12/06/2009 X3 LAST ONE IN 2009 EGD 11/08/2012 EGD 12/05/2021 INSERT/REPL DEFIB LEAD/GENER OTHR 07/2023 w/ Pacemaker PAST SURGICAL HISTORY OF 05/14/1999 left foot bunionectomy w/screws PAST SURGICAL HISTORY OF 05/14/1981 ectopic w/tube removal PAST SURGICAL HISTORY OF 2009 CYST REMOVED FROM UTERUS PAST SURGICAL HISTORY OF 05/24/2020 TVH, partial colpectomy, anterior colporrhaphy, Dennis transobturator midurethral sling, cystourethroscopy, rectocele repair with perineorrhaphy, laparoscopic lysis of adhesions and excision of bilateral adnexal structures PAST SURGICAL HISTORY OF 09/07/2020 Laparoscopic cholecystectomy with intraoperative cholangiograms. Dr. Ragsdale Current Outpatient Medications Medication Sig levothyroxine (LEVOXYL) 100 mcg tablet Take 1 tablet by mouth daily before breakfast. metoprolol succinate ER (TOPROL XL) 25 mg 24 hr tablet Take 1 tablet by mouth daily at bedtime. potassium chloride (K-TAB) 10 mEq tablet Take 1 tablet by mouth once daily. furosemide (LASIX) 20 mg tablet Take 1 tablet by mouth once daily. losartan (COZAAR) 25 mg tablet Take 1 tablet by mouth once daily. aluminum-magnesium hydroxide-simethicone 200-200-20 mg/5 mL suspension Take 30 mL by mouth every 6 hours as needed. dicyclomine (BENTYL) 10 mg capsule Take 1 capsule by mouth three times a day as needed (abdominal pain) for up to 20 doses. acetaminophen (TYLENOL) 500 mg tablet Take 2 tablets by mouth every 8 hours as needed for pain. cyanocobalamin (VITAMIN B-12) 1,000 mcg tab Take 1 tablet by mouth once daily. Cholecalciferol, Vitamin D3, 50 mcg (2,000 unit) cap Take 2 capsules by mouth once daily. aspirin, enteric coated (ECOTRIN LOW STRENGTH) 81 mg EC tablet Take 1 tablet by mouth once daily. No current facility-administered medications for this visit. ALLERGIES Allergen Reactions Emilio Inhibitors Intolerance Short of breath, symptoms of heart failure Beta-Blockers (Beta* Intolerance Short of breath, symptoms of heart failure Augmentin [Amoxicil* GI Upset Codeine Mental Status Change Patient felt like she was made out of lead Entresto [Sacubitri* Intolerance Lipitor [Atorvastat* Myalgia Muscle aches Sulfa (Sulfonamide * Intolerance Amlodipine Intolerance lightheaded Social History Tobacco Use Smoking status: Former Current packs/day: 0.00 Types: Cigarettes Quit date: 10/22/2002 Years since quittin.0 Smokeless tobacco: Never Vaping Use Vaping status: Never Used Substance Use Topics Alcohol use: No Drug use: No ROS: See HPI PE: There were no vitals taken for this visit. Gen: A&OX3, she appears uncomfortable HEENT: PERRLA, EOMs intact b/l, nares without drainage, pharynx without erythema, exudate, lesions,or drainage. Uvula midline. Neck: supple, No cervical LAD, no thyromegaly, no carotid bruits, suboccipital fullness right head,C3-6NRrSBr Right 1st rib inhalation dysfunction posterior T3-8ERrSBl L1-2NRrSBr Posterior rib left 5 inhalation dysfunction MS: arthritis changes, antalgic gait No edema. No spinal TTP Intact neurovascular tone of arms and leg Right lower leg in ankle arthrosis bracing ASSESSMENT/PLAN: 1. Chronic bilateral thoracic back pain - ICD9: 724.1, 338.29, ICD10: M54.6, G89.29 (primary diagnosis) OMT: Discussed risks, benefits, alternatives, and potential SEs of treatment. Patient wished to proceed with OMT. OMT was performed to the cervical region, thoracic region, head region, lumbar regionand ribs including soft tissue, functional methods, . Patient tolerated treatment well with good release, increase ROM, and decrease in pain, without complications. Instructed patient to drink plentyof water. Gentle stretches at home. 2. Somatic dysfunction of spine, lumbar - ICD9: 739.3, ICD10: M99.03 OMT: Discussed risks, benefits, alternatives, and potential SEs of treatment. Patient wished to proceed with OMT. OMT was performed to the cervical region, thoracic region, head region, lumbar regionand ribs including soft tissue, functional methods, . Patient tolerated treatment well with good release, increase ROM, and decrease in pain, without complications. Instructed patient to drink plentyof water. Gentle stretches at home. 3. Somatic dysfunction of rib - ICD9: 739.8, ICD10: M99.08 OMT: Discussed risks, benefits, alternatives, and potential SEs of treatment. Patient wished to proceed with OMT. OMT was performed to the cervical region, thoracic region, head region, lumbar regionand ribs including soft tissue, functional methods, . Patient tolerated treatment well with good release, increase ROM, and decrease in pain, without complications. Instructed patient to drink plentyof water. Gentle stretches at home. 4. Somatic dysfunction of head region - ICD9: 739.0, ICD10: M99.00 OMT: Discussed risks, benefits, alternatives, and potential SEs of treatment. Patient wished to proceed with OMT. OMT was performed to the cervical region, thoracic region, head region, lumbar regionand ribs including soft tissue, functional methods, . Patient tolerated treatment well with good release, increase ROM, and decrease in pain, without complications. Instructed patient to drink plentyof water. Gentle stretches at home. 5. Somatic dysfunction of spine, cervical - ICD9: 739.1, ICD10: M99.01 OMT: Discussed risks, benefits, alternatives, and potential SEs of treatment. Patient wished to proceed with OMT. OMT was performed to the cervical region, thoracic region, head region, lumbar regionand ribs including soft tissue, functional methods, . Patient tolerated treatment well with good release, increase ROM, and decrease in pain, without complications. Instructed patient to drink plentyof water. Gentle stretches at home. 6. Somatic dysfunction of spine, thoracic - ICD9: 739.2, ICD10: M99.02 OMT: Discussed risks, benefits, alternatives, and potential SEs of treatment. Patient wished to proceed with OMT. OMT was performed to the cervical region, thoracic region, head region, lumbar regionand ribs including soft tissue, functional methods, . Patient tolerated treatment well with good release, increase ROM, and decrease in pain, without complications. Instructed patient to drink plentyof water. Gentle stretches at home. Mandeep Houser DO Return if no improvement. Follow up with Mandeep Houser DO. To ER if develops chest pain, shortness of breath,. Discussed risks, benefits, alternatives, and potential side effects of medications. Patient/Guardian expressed understanding and agreed with the plan. See patient instructions. Mandeep Houesr DO [address] [place] [address] documented in [facility] NoteHNO ID: [id number] Author: MANDEEP HOUSER DO Service: ? Author Type: Physician Type: Progress Notes Filed: 09/30/2024 16:51 Note Text: CC: Sandra Schmitz is a 79 year old female who presents to the office for OMT HPI: Acute on chronic back pain, started yesterday with significant mid to lower back pain. Has been up doing a lot around her home. Otherwise doesn't know what started or triggered her symptoms, no new bowel or bladder changes. Pain is worse when moving from sitting to standing or with standing or walking. No trauma that she is aware of. Pain is severe, has been taking tylenol and using ice and heating pad without relief of symptoms. She is not able to take NSAIDs. Has been doing a lot of new exercise with cardiac rehab which has been held since her back pain flare up. Had improvements after her OMT. Last seen on 08/25 PAST MEDICAL HISTORY Diagnosis Date Acute acalculous cholecystitis 05/30/2020 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 09/22/2020 Acute on chronic systolic CHF (congestive heart failure) ([facility]) 05/03/2020 Aspiration pneumonia ([facility]) 05/30/2020 Chest pain 05/03/2020 Chest pressure 01/23/2013 Chronic diastolic congestive heart failure ([facility]) 02/14/2021 Clostridium difficile diarrhea 09/28/2020 Complete uterovaginal prolapse Cystocele, midline Essential hypertension 06/14/2020 Homozygous Factor V Leiden mutation ([facility]) 05/03/2020 Hypothyroidism IBS (irritable bowel syndrome) 01/23/2013 Palpitation CHRONIC Post-operative state 05/24/2020 Rectocele 05/25/2020 Shortness of breath 05/03/2020 Status post laparoscopic hysterectomy 05/30/2020 Tubular adenoma of colon 12/09/2020 Uterine prolapse 05/03/2020 PAST SURGICAL HISTORY Procedure Laterality Date COLONOSCOPY 01/07/2015 COLONOSCOPY 12/05/2021 repeat in 5 years COLONOSCOPY GEN ANES 12/06/2009 X3 LAST ONE IN 2009 EGD 11/08/2012 EGD 12/05/2021 INSERT/REPL DEFIB LEAD/GENER OTHR 07/2023 w/ Pacemaker PAST SURGICAL HISTORY OF 05/14/1999 left foot bunionectomy w/screws PAST SURGICAL HISTORY OF 05/14/1981 ectopic w/tube removal PAST SURGICAL HISTORY OF 2009 CYST REMOVED FROM UTERUS PAST SURGICAL HISTORY OF 05/24/2020 TVH, partial colpectomy, anterior colporrhaphy, Dennis transobturator midurethral sling, cystourethroscopy, rectocele repair with perineorrhaphy, laparoscopic lysis of adhesions and excision of bilateral adnexal structures PAST SURGICAL HISTORY OF 09/07/2020 Laparoscopic cholecystectomy with intraoperative cholangiograms. Dr. Ragsdale Current Outpatient Medications Medication Sig metoprolol succinate ER (TOPROL XL) 25 mg 24 hr tablet Take 1 tablet by mouth daily at bedtime. potassium chloride (K-TAB) 10 mEq tablet Take 1 tablet by mouth once daily. furosemide (LASIX) 20 mg tablet Take 1 tablet by mouth once daily. levothyroxine (LEVOXYL) 100 mcg tablet Take 1 tablet by mouth daily before breakfast. losartan (COZAAR) 25 mg tablet Take 1 tablet by mouth once daily. aluminum-magnesium hydroxide-simethicone 200-200-20 mg/5 mL suspension Take 30 mL by mouth every 6 hours as needed. dicyclomine (BENTYL) 10 mg capsule Take 1 capsule by mouth three times a day as needed (abdominal pain) for up to 20 doses. acetaminophen (TYLENOL) 500 mg tablet Take 2 tablets by mouth every 8 hours as needed for pain. cyanocobalamin (VITAMIN B-12) 1,000 mcg tab Take 1 tablet by mouth once daily. Cholecalciferol, Vitamin D3, 50 mcg (2,000 unit) cap Take 2 capsules by mouth once daily. aspirin, enteric coated (ECOTRIN LOW STRENGTH) 81 mg EC tablet Take 1 tablet by mouth once daily. No current facility-administered medications for this visit. ALLERGIES Allergen Reactions Emilio Inhibitors Intolerance Short of breath, symptoms of heart failure Beta-Blockers (Beta* Intolerance Short of breath, symptoms of heart failure Augmentin [Amoxicil* GI Upset Codeine Mental Status Change Patient felt like she was made out of lead Entresto [Sacubitri* Intolerance Lipitor [Atorvastat* Myalgia Muscle aches Sulfa (Sulfonamide * Intolerance Amlodipine Intolerance lightheaded Social History Tobacco Use Smoking status: Former Current packs/day: 0.00 Types: Cigarettes Quit date: 10/22/2002 Years since quittin.9 Smokeless tobacco: Never Vaping Use Vaping status: Never Used Substance Use Topics Alcohol use: No Drug use: No ROS: See HPI PE: There were no vitals taken for this visit. Gen: AANDOX3 HEENT: PERRLA, EOMs intact b/l, nares without drainage, pharynx without erythema, exudate, lesions, or drainage. Uvula midline. Neck: supple, No cervical LAD, no thyromegaly, no carotid bruits, suboccipital fullness right head, C3-5NRrSBr Left posterior rib 5 inhalation dysfunction posterior T3-8ERrSBl L1-2NRrSBr MS: arthritis changes, antalgic gait No edema. No spinal TTP Intact neurovascular tone of arms and leg Right lower leg (more content not included)...[facility] 09-15-2024 NoteHNO ID: [id number] Author: DORINDA YOUNG MA Service: ? Author Type: Employee Health Nurse Type: Progress Notes Filed: 09/15/2024 12:40 Note Text: POPULATION HEALTH NAVIGATION OUTREACH Action/FYI Called and left a message to call [phone], to discuss health maintenance items that are due. PCP appt: Wellness due for 2024 Patient has follow up on 09/23- updated note with ANNUAL WELLNESS VISIT , HCC and HM due. HM due: BP My chart Reason for Outreach Care Gap/HCC or Scheduling Wellness Visits Care Gaps due: Medicare Annual Wellness Visit Controlling Blood Pressure Patient Contacted: Unable or unnecessary to reach patient: Left message HCC related Updated appointment notes Navigation Signature: Dorinda Young MA September 15, 2024 12:39 [facility]05-05-2025 History of Present illness Narrative* Dorinda Young MA - 09/15/2024 12:39 PM EDT POPULATION HEALTH NAVIGATION OUTREACH Action/FYI Called and left a message to call [phone], to discuss health maintenance items that are due. PCP appt: Wellness due for 2024 Patient has follow up on 09/23- updated note with ANNUAL WELLNESS VISIT , HCC and HM due. HM due: BP My chart Reason for Outreach Care Gap/HCC or Scheduling Wellness Visits Care Gaps due: Medicare Annual Wellness Visit Controlling Blood Pressure Patient Contacted: Unable or unnecessary to reach patient: Left message HCC related Updated appointment notes Navigation Signature: Dorinda Young MA September 15, 2024 12:39 PM documented in this encounter[facility] NotePatient Outreach (NETNAV) SANDRA SCHMITZ ([id number]) 1945 F Date Time Provider Department 09/15/24 DORINDA YOUNG During your visit today, we recorded the following information about you: Dorinda Young MA 09/15/2024 12:40 PM Addendum POPULATION HEALTH NAVIGATION OUTREACH Action/MARIVEL Called and left a message to call [phone], to discuss health maintenance items that are due. PCP appt: Wellness due for 2024 Patient has follow up on 09/23- updated note with ANNUAL WELLNESS VISIT , HCC and HM due. HM due: BP My chart Reason for Outreach Care Gap/HCC or Scheduling Wellness Visits Care Gaps due: Medicare Annual Wellness Visit Controlling Blood Pressure Patient Contacted: Unable or unnecessary to reach patient: Left message HCC related Updated appointment notes Navigation Signature: Dorinda Young MA September 15, 2024 12:39 PM Allergies As of Date: 09/15/2024 Noted Allergy Reaction EMILIO INHIBITORS 05/03/2020 5 - Intolerance Comments: Short of breath, symptoms of heart failure BETA-BLOCKERS (BETA-ADRENERGIC BL*05/03/2020 5 - Intolerance Comments: Short of breath, symptoms of heart failure AUGMENTIN (AMOXICILLIN-POT CLAVUL*01/23/2013 8 - GI Upset CODEINE 10/24/2012 1 - Mental Status Change Comments: Patient felt like she was made out of lead ENTRESTO (SACUBITRIL-VALSARTAN) 02/07/2024 5 - Intolerance LIPITOR (ATORVASTATIN) 05/05/2020 17 - Myalgia Comments: Muscle aches SULFA (SULFONAMIDE ANTIBIOTICS) 04/28/2020 5 - Intolerance AMLODIPINE 04/28/2020 5 - Intolerance Comments: lightheaded Date Reviewed: 07/21/2024 Reviewed by: Kelsey Costa LPN - Fully Assessed Reason for Visit: Population Health Navigation Outreach [3910] Cmt: ACO, High Risk Prescriptions as of 09/15/2024 - furosemide (LASIX) 20 mg tablet Take 1 tablet by mouth once daily. - levothyroxine (LEVOXYL) 100 mcg tablet Take 1 tablet by mouth daily before breakfast. - losartan (COZAAR) 25 mg tablet Take 1 tablet by mouth once daily. - aluminum-magnesium hydroxide-simethicone 200-200-20 mg/5 mL suspension Take 30 mL by mouth every 6 hours as needed. - dicyclomine (BENTYL) 10 mg capsule Take 1 capsule by mouth three times a day as needed (abdominal pain) for up to 20 doses. - metoprolol succinate ER (TOPROL XL) 25 mg 24 hr tablet Take 1 tablet by mouth daily at bedtime. - acetaminophen (TYLENOL) 500 mg tablet Take 2 tablets by mouth every 8 hours as needed for pain. - cyanocobalamin (VITAMIN B-12) 1,000 mcg tab Take 1 tablet by mouth once daily. - Cholecalciferol, Vitamin D3, 50 mcg (2,000 unit) cap Take 2 capsules by mouth once daily. - aspirin, enteric coated (ECOTRIN LOW STRENGTH) 81 mg EC tablet Take 1 tablet by mouth once daily. Problem List As Of Date 09/15/2024 Noted Resolved IBS (irritable bowel syndrome) [K58.9] 01/23/2013 Palpitations [R00.2] 12/16/2014 Obesity, Class I, BMI 30-34.9 [E66.811] 03/10/2020 Shortness of breath [R06.02] 05/03/2020 06/14/2020 Acute on chronic systolic CHF (congestive heart*05/03/2020 Homozygous Factor V Leiden mutation (HCC) [D68.*05/03/2020 Hypothyroidism [E03.9] 01/24/2018 Chest pain [R07.9] 05/03/2020 06/14/2020 Post-operative state [Z98.890] 05/24/2020 06/14/2020 Rectocele [N81.6] 05/25/2020 Cystocele, midline [N81.11] 05/25/2020 Aspiration pneumonia (HCC) [J69.0] 05/30/2020 09/22/2020 Acute acalculous cholecystitis [K81.0] 05/30/2020 Primary hypertension [I10] 06/14/2020 Acute idiopathic gout involving toe of left cristal*09/22/2020 Diverticulitis [K57.92] 09/29/2020 Hypokalemia [E87.6] 09/29/2020 Hospital discharge follow-up [Z09] 12/06/2020 Tubular adenoma of colon [D12.6] 12/09/2020 Mixed hyperlipidemia [E78.2] 12/29/2020 Chronic pain of right ankle [M25.571, G89.29] 12/29/2020 Kidney insufficiency [N28.9] 12/29/2020 Chronic systolic congestive heart failure (HCC)*02/14/2021 Valvular heart disease [I38] 04/06/2021 Colon cancer screening [Z12.11] 04/06/2021 Left bundle branch block [I44.7] 05/23/2021 Left shoulder pain [M25.512] 07/11/2021 Lateral epicondylitis of left elbow [M77.12] 07/11/2021 Cardiomegaly [I51.7] 02/13/2022 Chronic bilateral thoracic back pain [M54.6, G8*07/18/2022 Rib pain on right side [R07.81] 07/18/2022 Somatic dysfunction of rib [M99.08] 07/18/2022 Somatic dysfunction of spine, thoracic [M99.02] 07/18/2022 Somatic dysfunction of spine, cervical [M99.01] 07/18/2022 Foot drop, right [M21.371] 08/02/2022 Arthrosis of ankle, right [M19.071] 08/02/2022 Coronary artery disease involving [place]*08/02/2022 Vitamin D deficiency [E55.9] 08/02/2022 Somatic dysfunction of head region [M99.00] 08/10/2022 Chronic neck pain [M54.2, G89.29] 08/24/2022 Chronic bronchitis (HCC) [J42] 09/11/2022 SVT (supraventricular tachycardia) (HCC) [I47.1*09/11/2022 Combined systolic and diastolic cardi (more content not included)...[facility] NoteHNO ID: [id number] Author: MANDEEP HOUSER, DO Service: ? Author Type: Physician Type: Progress Notes Filed: 08/28/2024 10:23 Note Text: CC: Sandra Schmitz is a 79 year old female who presents to the office for OMT HPI: Acute on chronic back pain, started yesterday with significant mid to lower back pain. Has been up doing a lot around her home. Otherwise doesn't know what started or triggered her symptoms, no new bowel or bladder changes. Pain is worse when moving from sitting to standing or with standing or walking. No trauma that she is aware of. Pain is severe, has been taking tylenol and using ice and heating pad without relief of symptoms. She is not able to take NSAIDs. Has been doing a lot of new exercise with cardiac rehab which has been held since her back pain flare up. Had improvements after her OMT PAST MEDICAL HISTORY Diagnosis Date Acute acalculous cholecystitis 05/30/2020 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 09/22/2020 Acute on chronic systolic CHF (congestive heart failure) ([facility]) 05/03/2020 Aspiration pneumonia ([facility]) 05/30/2020 Chest pain 05/03/2020 Chest pressure 01/23/2013 Chronic diastolic congestive heart failure ([facility]) 02/14/2021 Clostridium difficile diarrhea 09/28/2020 Complete uterovaginal prolapse Cystocele, midline Essential hypertension 06/14/2020 Homozygous Factor V Leiden mutation ([facility]) 05/03/2020 Hypothyroidism IBS (irritable bowel syndrome) 01/23/2013 Palpitation CHRONIC Post-operative state 05/24/2020 Rectocele 05/25/2020 Shortness of breath 05/03/2020 Status post laparoscopic hysterectomy 05/30/2020 Tubular adenoma of colon 12/09/2020 Uterine prolapse 05/03/2020 PAST SURGICAL HISTORY Procedure Laterality Date COLONOSCOPY 01/07/2015 COLONOSCOPY 12/05/2021 repeat in 5 years COLONOSCOPY GEN ANES 12/06/2009 X3 LAST ONE IN 2009 EGD 11/08/2012 EGD 12/05/2021 INSERT/REPL DEFIB LEAD/GENER OTHR 07/2023 w/ Pacemaker PAST SURGICAL HISTORY OF 05/14/1999 left foot bunionectomy w/screws PAST SURGICAL HISTORY OF 05/14/1981 ectopic w/tube removal PAST SURGICAL HISTORY OF 2009 CYST REMOVED FROM UTERUS PAST SURGICAL HISTORY OF 05/24/2020 TVH, partial colpectomy, anterior colporrhaphy, Dennis transobturator midurethral sling, cystourethroscopy, rectocele repair with perineorrhaphy, laparoscopic lysis of adhesions and excision of bilateral adnexal structures PAST SURGICAL HISTORY OF 09/07/2020 Laparoscopic cholecystectomy with intraoperative cholangiograms. Dr. Ragsdale Current Outpatient Medications Medication Sig furosemide (LASIX) 20 mg tablet Take 1 tablet by mouth once daily. levothyroxine (LEVOXYL) 100 mcg tablet Take 1 tablet by mouth daily before breakfast. losartan (COZAAR) 25 mg tablet Take 1 tablet by mouth once daily. aluminum-magnesium hydroxide-simethicone 200-200-20 mg/5 mL suspension Take 30 mL by mouth every 6 hours as needed. dicyclomine (BENTYL) 10 mg capsule Take 1 capsule by mouth three times a day as needed (abdominal pain) for up to 20 doses. metoprolol succinate ER (TOPROL XL) 25 mg 24 hr tablet Take 1 tablet by mouth daily at bedtime. acetaminophen (TYLENOL) 500 mg tablet Take 2 tablets by mouth every 8 hours as needed for pain. cyanocobalamin (VITAMIN B-12) 1,000 mcg tab Take 1 tablet by mouth once daily. Cholecalciferol, Vitamin D3, 50 mcg (2,000 unit) cap Take 2 capsules by mouth once daily. aspirin, enteric coated (ECOTRIN LOW STRENGTH) 81 mg EC tablet Take 1 tablet by mouth once daily. No current facility-administered medications for this visit. ALLERGIES Allergen Reactions Emilio Inhibitors Intolerance Short of breath, symptoms of heart failure Beta-Blockers (Beta* Intolerance Short of breath, symptoms of heart failure Augmentin [Amoxicil* GI Upset Codeine Mental Status Change Patient felt like she was made out of lead Entresto [Sacubitri* Intolerance Lipitor [Atorvastat* Myalgia Muscle aches Sulfa (Sulfonamide * Intolerance Amlodipine Intolerance lightheaded Social History Tobacco Use Smoking status: Former Current packs/day: 0.00 Types: Cigarettes Quit date: 10/22/2002 Years since quittin.8 Smokeless tobacco: Never Vaping Use Vaping status: Never Used Substance Use Topics Alcohol use: No Drug use: No ROS: See HPI PE: There were no vitals taken for this visit. Gen: AANDOX3, she appears uncomfortable HEENT: PERRLA, EOMs intact b/l, nares without drainage, pharynx without erythema, exudate, lesions, or drainage. Uvula midline. Neck: supple, No cervical LAD, no thyromegaly, no carotid bruits, suboccipital fullness right head, C3-6NRrSBr Right 1st rib inhalation dysfunction posterior T3-10ERrSBl L1-2NRrSBr Right anterior innominate MS: arthritis changes, antalgic gait No edema. No spinal TTP Intact neurovascular tone of arms and leg Right lower leg in ankle arthrosis bracing ASSESSMENT/PLAN: (more content not included)...[facility]04-17-[facility] History of Present illness Narrative* Mandeep Houser, DO - 08/28/2024 10:21 AM EDT CC: Sandra Schmitz is a 79 year old female who presents to the office for OMT HPI: Acute on chronic back pain, started yesterday with significant mid to lower back pain. Has been up doing a lot around her home. Otherwise doesn't know what started or triggered her symptoms, no new bowel or bladder changes. Pain is worse when moving from sitting to standing or with standing or walking. No trauma that she is aware of. Pain is severe, has been taking tylenol and using ice and heating pad without relief of symptoms. She is not able to take NSAIDs. Has been doing a lot of new exercise with cardiac rehab which has been held since her back pain flare up. Had improvements after her OMT PAST MEDICAL HISTORY Diagnosis Date Acute acalculous cholecystitis 05/30/2020 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 09/22/2020 Acute on chronic systolic CHF (congestive heart failure) ([facility]) 05/03/2020 Aspiration pneumonia ([facility]) 05/30/2020 Chest pain 05/03/2020 Chest pressure 01/23/2013 Chronic diastolic congestive heart failure (HCC) 02/14/2021 Clostridium difficile diarrhea 09/28/2020 Complete uterovaginal prolapse Cystocele, midline Essential hypertension 06/14/2020 Homozygous Factor V Leiden mutation ([facility]) 05/03/2020 Hypothyroidism IBS (irritable bowel syndrome) 01/23/2013 Palpitation CHRONIC Post-operative state 05/24/2020 Rectocele 05/25/2020 Shortness of breath 05/03/2020 Status post laparoscopic hysterectomy 05/30/2020 Tubular adenoma of colon 12/09/2020 Uterine prolapse 05/03/2020 PAST SURGICAL HISTORY Procedure Laterality Date COLONOSCOPY 01/07/2015 COLONOSCOPY 12/05/2021 repeat in 5 years COLONOSCOPY GEN ANES 12/06/2009 X3 LAST ONE IN 2009 EGD 11/08/2012 EGD 12/05/2021 INSERT/REPL DEFIB LEAD/GENER OTHR 07/2023 w/ Pacemaker PAST SURGICAL HISTORY OF 05/14/1999 left foot bunionectomy w/screws PAST SURGICAL HISTORY OF 05/14/1981 ectopic w/tube removal PAST SURGICAL HISTORY OF 2009 CYST REMOVED FROM UTERUS PAST SURGICAL HISTORY OF 05/24/2020 TVH, partial colpectomy, anterior colporrhaphy, Dennis transobturator midurethral sling, cystourethroscopy, rectocele repair with perineorrhaphy, laparoscopic lysis of adhesions and excision of bilateral adnexal structures PAST SURGICAL HISTORY OF 09/07/2020 Laparoscopic cholecystectomy with intraoperative cholangiograms. Dr. Ragsdale Current Outpatient Medications Medication Sig furosemide (LASIX) 20 mg tablet Take 1 tablet by mouth once daily. levothyroxine (LEVOXYL) 100 mcg tablet Take 1 tablet by mouth daily before breakfast. losartan (COZAAR) 25 mg tablet Take 1 tablet by mouth once daily. aluminum-magnesium hydroxide-simethicone 200-200-20 mg/5 mL suspension Take 30 mL by mouth every 6 hours as needed. dicyclomine (BENTYL) 10 mg capsule Take 1 capsule by mouth three times a day as needed (abdominal pain) for up to 20 doses. metoprolol succinate ER (TOPROL XL) 25 mg 24 hr tablet Take 1 tablet by mouth daily at bedtime. acetaminophen (TYLENOL) 500 mg tablet Take 2 tablets by mouth every 8 hours as needed for pain. cyanocobalamin (VITAMIN B-12) 1,000 mcg tab Take 1 tablet by mouth once daily. Cholecalciferol, Vitamin D3, 50 mcg (2,000 unit) cap Take 2 capsules by mouth once daily. aspirin, enteric coated (ECOTRIN LOW STRENGTH) 81 mg EC tablet Take 1 tablet by mouth once daily. No current facility-administered medications for this visit. ALLERGIES Allergen Reactions Emilio Inhibitors Intolerance Short of breath, symptoms of heart failure Beta-Blockers (Beta* Intolerance Short of breath, symptoms of heart failure Augmentin [Amoxicil* GI Upset Codeine Mental Status Change Patient felt like she was made out of lead Entresto [Sacubitri* Intolerance Lipitor [Atorvastat* Myalgia Muscle aches Sulfa (Sulfonamide * Intolerance Amlodipine Intolerance lightheaded Social History Tobacco Use Smoking status: Former Current packs/day: 0.00 Types: Cigarettes Quit date: 10/22/2002 Years since quittin.8 Smokeless tobacco: Never Vaping Use Vaping status: Never Used Substance Use Topics Alcohol use: No Drug use: No ROS: See HPI PE: There were no vitals taken for this visit. Gen: A&OX3, she appears uncomfortable HEENT: PERRLA, EOMs intact b/l, nares without drainage, pharynx without erythema, exudate, lesions,or drainage. Uvula midline. Neck: supple, No cervical LAD, no thyromegaly, no carotid bruits, suboccipital fullness right head,C3-6NRrSBr Right 1st rib inhalation dysfunction posterior T3-10ERrSBl L1-2NRrSBr Right anterior innominate MS: arthritis changes, antalgic gait No edema. No spinal TTP Intact neurovascular tone of arms and leg Right lower leg in ankle arthrosis bracing ASSESSMENT/PLAN: 1. Chronic bilateral thoracic back pain - ICD9: 724.1, 338.29, ICD10: M54.6, G89.29 (primary diagnosis) OMT: Discussed risks, benefits, alternatives, and potential SEs of treatment. Patient wished to proceed with OMT. OMT was performed to the cervical region, head region, lumbar region, pelvis region, thoracic region, and ribs including soft tissue, functional methods. Patient tolerated treatment well with good release, increase ROM, and decrease in pain, without complications. Instructed patient to drink plenty of water. Gentle stretches at home. 2. Somatic dysfunction of rib - ICD9: 739.8, ICD10: M99.08 OMT: Discussed risks, benefits, alternatives, and potential SEs of treatment. Patient wished to proceed with OMT. OMT was performed to the cervical region, head region, lumbar region, pelvis region, thoracic region, and ribs including soft tissue, functional methods. Patient tolerated treatment well with good release, increase ROM, and decrease in pain, without complications. Instructed patient to drink plenty of water. Gentle stretches at home. 3. Somatic dysfunction of pelvic region - ICD9: 739.5, ICD10: M99.05 OMT: Discussed risks, benefits, alternatives, and potential SEs of treatment. Patient wished to proceed with OMT. OMT was performed to the cervical region, head region, lumbar region, pelvis region, thoracic region, and ribs including soft tissue, functional methods. Patient tolerated treatment well with good release, increase ROM, and decrease in pain, without complications. Instructed patient to drink plenty of water. Gentle stretches at home. 4. Somatic dysfunction of spine, thoracic - ICD9: 739.2, ICD10: M99.02 OMT: Discussed risks, benefits, alternatives, and potential SEs of treatment. Patient wished to proceed with OMT. OMT was performed to the cervical region, head region, lumbar region, pelvis region, thoracic region, and ribs including soft tissue, functional methods. Patient tolerated treatment well with good release, increase ROM, and decrease in pain, without complications. Instructed patient to drink plenty of water. Gentle stretches at home. 5. Somatic dysfunction of spine, cervical - ICD9: 739.1, ICD10: M99.01 OMT: Discussed risks, benefits, alternatives, and potential SEs of treatment. Patient wished to proceed with OMT. OMT was performed to the cervical region, head region, lumbar region, pelvis region, thoracic region, and ribs including soft tissue, functional methods. Patient tolerated treatment well with good release, increase ROM, and decrease in pain, without complications. Instructed patient to drink plenty of water. Gentle stretches at home. 6. Somatic dysfunction of head region - ICD9: 739.0, ICD10: M99.00 OMT: Discussed risks, benefits, alternatives, and potential SEs of treatment. Patient wished to proceed with OMT. OMT was performed to the cervical region, head region, lumbar region, pelvis region, thoracic region, and ribs including soft tissue, functional methods. Patient tolerated treatment well with good release, increase ROM, and decrease in pain, without complications. Instructed patient to drink plenty of water. Gentle stretches at home. 7. Somatic dysfunction of spine, lumbar - ICD9: 739.3, ICD10: M99.03 OMT: Discussed risks, benefits, alternatives, and potential SEs of treatment. Patient wished to proceed with OMT. OMT was performed to the cervical region, head region, lumbar region, pelvis region, thoracic region, and ribs including soft tissue, functional methods. Patient tolerated treatment well with good release, increase ROM, and decrease in pain, without complications. Instructed patient to drink plenty of water. Gentle stretches at home. Mandeep Houser DO Return if no improvement. Follow up with Mandeep Houser DO. To ER if develops chest pain, shortness of breath. Discussed risks, benefits, alternatives, and potential side effects of medications. Patient/Guardian expressed understanding and agreed with the plan. See patient instructions. Mandeep Houser DO [address] [place] [address] documented [facility] Miscellaneous Notes* Telephone Encounter - Radha Buchanan - 08/27/2024 10:22 AM EDT Call to patient to r/s. Patient is driving out from [place] and would prefer all appointments same day as Dr. Wells. Rescheduled to Friday 11/03 with device check, OV with Morenita Hill and Dr. Wells. * Telephone Encounter - Radha Buchanan - 08/27/2024 10:21 AM EDT ----- Message from Dilcia Bonilla MD sent at 08/23/2024 9:30 AM EDT ----- I saw her in '24 Please reschedule with Mercedes + device documented in this encounterK[facility]25 Telephone encounter Note * Telephone Encounter - Radha Buchanan - 08/27/2024 10:22 AM EDT Call to patient to r/s. Patient is driving out from [place] and would prefer all appointments same day as Dr. Wells. Rescheduled to Friday 11/03 with device check, OV with Morenita Hill and Dr. Wells. [facility] Telephone encounter Note* Telephone Encounter - Radha Buchanan - 08/27/2024 10:21 AM EDT ----- Message from Dilcia Bonilla MD sent at 08/23/2024 9:30 AM EDT ----- I saw her in '24 Please reschedule with Mercedes + device [facility]04-14-[facility] Instructions* Patient Instructions* Mandeep Houser DO - 08/25/2024 4:32 PM EDT Magnesium glycinate 250-500 mg in the evening with supper Use as a capsule or powder or tablet To help muscles documented in this encounterK[facility]03-[facility]-2025 NoteHNO ID: [id number] Author: MANDEEP HOUSER DO Service: ? Author Type: Physician Type: Progress Notes Filed: 08/05/2024 16:42 Note Text: CC: Sandra Schmitz is a 79 year old female who presents to the office for OMT HPI: Acute on chronic back pain, started yesterday with significant mid to lower back pain. Has been up doing a lot around her home. Otherwise doesn't know what started or triggered her symptoms, no new bowel or bladder changes. Pain is worse when moving from sitting to standing or with standing or walking. No trauma that she is aware of. Pain is severe, has been taking tylenol and using ice and heating pad without relief of symptoms. She is not able to take NSAIDs. Has been doing a lot of new exercise with cardiac rehab which has been held since her back pain flare up. Had improvements after her OMT PAST MEDICAL HISTORY Diagnosis Date Acute acalculous cholecystitis 05/30/2020 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 09/22/2020 Acute on chronic systolic CHF (congestive heart failure) (HCC) 05/03/2020 Aspiration pneumonia (HCC) 05/30/2020 Chest pain 05/03/2020 Chest pressure 01/23/2013 Chronic diastolic congestive heart failure (HCC) 02/14/2021 Clostridium difficile diarrhea 09/28/2020 Complete uterovaginal prolapse Cystocele, midline Essential hypertension 06/14/2020 Homozygous Factor V Leiden mutation (HCC) 05/03/2020 Hypothyroidism IBS (irritable bowel syndrome) 01/23/2013 Palpitation CHRONIC Post-operative state 05/24/2020 Rectocele 05/25/2020 Shortness of breath 05/03/2020 Status post laparoscopic hysterectomy 05/30/2020 Tubular adenoma of colon 12/09/2020 Uterine prolapse 05/03/2020 PAST SURGICAL HISTORY Procedure Laterality Date COLONOSCOPY 01/07/2015 COLONOSCOPY 12/05/2021 repeat in 5 years COLONOSCOPY GEN ANES 12/06/2009 X3 LAST ONE IN 2009 EGD 11/08/2012 EGD 12/05/2021 INSERT/REPL DEFIB LEAD/GENER OTHR 07/2023 w/ Pacemaker PAST SURGICAL HISTORY OF 05/14/1999 left foot bunionectomy w/screws PAST SURGICAL HISTORY OF 05/14/1981 ectopic w/tube removal PAST SURGICAL HISTORY OF 2009 CYST REMOVED FROM UTERUS PAST SURGICAL HISTORY OF 05/24/2020 TVH, partial colpectomy, anterior colporrhaphy, Dennis transobturator midurethral sling, cystourethroscopy, rectocele repair with perineorrhaphy, laparoscopic lysis of adhesions and excision of bilateral adnexal structures PAST SURGICAL HISTORY OF 09/07/2020 Laparoscopic cholecystectomy with intraoperative cholangiograms. Dr. Ragsdale Current Outpatient Medications Medication Sig furosemide (LASIX) 20 mg tablet Take 1 tablet by mouth once daily. levothyroxine (LEVOXYL) 100 mcg tablet Take 1 tablet by mouth daily before breakfast. losartan (COZAAR) 25 mg tablet Take 1 tablet by mouth once daily. aluminum-magnesium hydroxide-simethicone 200-200-20 mg/5 mL suspension Take 30 mL by mouth every 6 hours as needed. dicyclomine (BENTYL) 10 mg capsule Take 1 capsule by mouth three times a day as needed (abdominal pain) for up to 20 doses. metoprolol succinate ER (TOPROL XL) 25 mg 24 hr tablet Take 1 tablet by mouth daily at bedtime. acetaminophen (TYLENOL) 500 mg tablet Take 2 tablets by mouth every 8 hours as needed for pain. cyanocobalamin (VITAMIN B-12) 1,000 mcg tab Take 1 tablet by mouth once daily. Cholecalciferol, Vitamin D3, 50 mcg (2,000 unit) cap Take 2 capsules by mouth once daily. aspirin, enteric coated (ECOTRIN LOW STRENGTH) 81 mg EC tablet Take 1 tablet by mouth once daily. No current facility-administered medications for this visit. ALLERGIES Allergen Reactions Emilio Inhibitors Intolerance Short of breath, symptoms of heart failure Beta-Blockers (Beta* Intolerance Short of breath, symptoms of heart failure Augmentin [Amoxicil* GI Upset Codeine Mental Status Change Patient felt like she was made out of lead Entresto [Sacubitri* Intolerance Lipitor [Atorvastat* Myalgia Muscle aches Sulfa (Sulfonamide * Intolerance Amlodipine Intolerance lightheaded Social History Tobacco Use Smoking status: Former Current packs/day: 0.00 Types: Cigarettes Quit date: 10/22/2002 Years since quittin.8 Smokeless tobacco: Never Vaping Use Vaping status: Never Used Substance Use Topics Alcohol use: No Drug use: No ROS: See HPI PE: There were no vitals taken for this visit. Gen: AANDOX3, she appears uncomfortable HEENT: PERRLA, EOMs intact b/l, nares without drainage, pharynx without erythema, exudate, lesions, or drainage. Uvula midline. Neck: supple, No cervical LAD, no thyromegaly, no carotid bruits, suboccipital fullness right head, C3-6NRrSBr Right 1st rib inhalation dysfunction posterior T3-10ERrSBl L1-2NRrSBr left anterior innominate MS: arthritis changes, antalgic gait No edema. No spinal TTP Intact neurovascular tone of arms and leg ASSESSMENT/PLAN: 1. Chronic bilateral thoracic back pain - ICD (more content not included)... [facility]03-25-2025 History of Present illness Narrative* Mandeep Houser, - 08/05/2024 4:40 PM EDT CC: Sandra Schmitz is a 79 year old female who presents to the office for OMT HPI: Acute on chronic back pain, started yesterday with significant mid to lower back pain. Has been up doing a lot around her home. Otherwise doesn't know what started or triggered her symptoms, no new bowel or bladder changes. Pain is worse when moving from sitting to standing or with standing or walking. No trauma that she is aware of. Pain is severe, has been taking tylenol and using ice and heating pad without relief of symptoms. She is not able to take NSAIDs. Has been doing a lot of new exercise with cardiac rehab which has been held since her back pain flare up. Had improvements after her OMT PAST MEDICAL HISTORY Diagnosis Date Acute acalculous cholecystitis 05/30/2020 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 09/22/2020 Acute on chronic systolic CHF (congestive heart failure) ([facility]) 05/03/2020 Aspiration pneumonia ([facility]) 05/30/2020 Chest pain 05/03/2020 Chest pressure 01/23/2013 Chronic diastolic congestive heart failure ([facility]) 02/14/2021 Clostridium difficile diarrhea 09/28/2020 Complete uterovaginal prolapse Cystocele, midline Essential hypertension 06/14/2020 Homozygous Factor V Leiden mutation ([facility]) 05/03/2020 Hypothyroidism IBS (irritable bowel syndrome) 01/23/2013 Palpitation CHRONIC Post-operative state 05/24/2020 Rectocele 05/25/2020 Shortness of breath 05/03/2020 Status post laparoscopic hysterectomy 05/30/2020 Tubular adenoma of colon 12/09/2020 Uterine prolapse 05/03/2020 PAST SURGICAL HISTORY Procedure Laterality Date COLONOSCOPY 01/07/2015 COLONOSCOPY 12/05/2021 repeat in 5 years COLONOSCOPY GEN ANES 12/06/2009 X3 LAST ONE IN 2009 EGD 11/08/2012 EGD 12/05/2021 INSERT/REPL DEFIB LEAD/GENER OTHR 07/2023 w/ Pacemaker PAST SURGICAL HISTORY OF 05/14/1999 left foot bunionectomy w/screws PAST SURGICAL HISTORY OF 05/14/1981 ectopic w/tube removal PAST SURGICAL HISTORY OF 2009 CYST REMOVED FROM UTERUS PAST SURGICAL HISTORY OF 05/24/2020 TVH, partial colpectomy, anterior colporrhaphy, Dennis transobturator midurethral sling, cystourethroscopy, rectocele repair with perineorrhaphy, laparoscopic lysis of adhesions and excision of bilateral adnexal structures PAST SURGICAL HISTORY OF 09/07/2020 Laparoscopic cholecystectomy with intraoperative cholangiograms. Dr. Ragsdale Current Outpatient Medications Medication Sig furosemide (LASIX) 20 mg tablet Take 1 tablet by mouth once daily. levothyroxine (LEVOXYL) 100 mcg tablet Take 1 tablet by mouth daily before breakfast. losartan (COZAAR) 25 mg tablet Take 1 tablet by mouth once daily. aluminum-magnesium hydroxide-simethicone 200-200-20 mg/5 mL suspension Take 30 mL by mouth every 6 hours as needed. dicyclomine (BENTYL) 10 mg capsule Take 1 capsule by mouth three times a day as needed (abdominal pain) for up to 20 doses. metoprolol succinate ER (TOPROL XL) 25 mg 24 hr tablet Take 1 tablet by mouth daily at bedtime. acetaminophen (TYLENOL) 500 mg tablet Take 2 tablets by mouth every 8 hours as needed for pain. cyanocobalamin (VITAMIN B-12) 1,000 mcg tab Take 1 tablet by mouth once daily. Cholecalciferol, Vitamin D3, 50 mcg (2,000 unit) cap Take 2 capsules by mouth once daily. aspirin, enteric coated (ECOTRIN LOW STRENGTH) 81 mg EC tablet Take 1 tablet by mouth once daily. No current facility-administered medications for this visit. ALLERGIES Allergen Reactions Emilio Inhibitors Intolerance Short of breath, symptoms of heart failure Beta-Blockers (Beta* Intolerance Short of breath, symptoms of heart failure Augmentin [Amoxicil* GI Upset Codeine Mental Status Change Patient felt like she was made out of lead Entresto [Sacubitri* Intolerance Lipitor [Atorvastat* Myalgia Muscle aches Sulfa (Sulfonamide * Intolerance Amlodipine Intolerance lightheaded Social History Tobacco Use Smoking status: Former Current packs/day: 0.00 Types: Cigarettes Quit date: 10/22/2002 Years since quittin.8 Smokeless tobacco: Never Vaping Use Vaping status: Never Used Substance Use Topics Alcohol use: No Drug use: No ROS: See HPI PE: There were no vitals taken for this visit. Gen: A&OX3, she appears uncomfortable HEENT: PERRLA, EOMs intact b/l, nares without drainage, pharynx without erythema, exudate, lesions,or drainage. Uvula midline. Neck: supple, No cervical LAD, no thyromegaly, no carotid bruits, suboccipital fullness right head,C3-6NRrSBr Right 1st rib inhalation dysfunction posterior T3-10ERrSBl L1-2NRrSBr left anterior innominate MS: arthritis changes, antalgic gait No edema. No spinal TTP Intact neurovascular tone of arms and leg ASSESSMENT/PLAN: 1. Chronic bilateral thoracic back pain - ICD9: 724.1, 338.29, ICD10: M54.6, G89.29 (primary diagnosis) OMT: Discussed risks, benefits, alternatives, and potential SEs of treatment. Patient wished to proceed with OMT. OMT was performed to the cervical region, thoracic region, head region, pelvis regionand ribs including soft tissue, functional methods, . Patient tolerated treatment well with good release, increase ROM, and decrease in pain, without complications. Instructed patient to drink plenty of water. Gentle stretches at home. 2. Somatic dysfunction of rib - ICD9: 739.8, ICD10: M99.08 OMT: Discussed risks, benefits, alternatives, and potential SEs of treatment. Patient wished to proceed with OMT. OMT was performed to the cervical region, thoracic region, head region, pelvis regionand ribs including soft tissue, functional methods, . Patient tolerated treatment well with good release, increase ROM, and decrease in pain, without complications. Instructed patient to drink plenty of water. Gentle stretches at home. 3. Somatic dysfunction of spine, thoracic - ICD9: 739.2, ICD10: M99.02 OMT: Discussed risks, benefits, alternatives, and potential SEs of treatment. Patient wished to proceed with OMT. OMT was performed to the cervical region, thoracic region, head region, pelvis regionand ribs including soft tissue, functional methods, . Patient tolerated treatment well with good release, increase ROM, and decrease in pain, without complications. Instructed patient to drink plenty of water. Gentle stretches at home. 4. Somatic dysfunction of spine, cervical - ICD9: 739.1, ICD10: M99.01 OMT: Discussed risks, benefits, alternatives, and potential SEs of treatment. Patient wished to proceed with OMT. OMT was performed to the cervical region, thoracic region, head region, pelvis regionand ribs including soft tissue, functional methods, . Patient tolerated treatment well with good release, increase ROM, and decrease in pain, without complications. Instructed patient to drink plenty of water. Gentle stretches at home. 5. Somatic dysfunction of head region - ICD9: 739.0, ICD10: M99.00 OMT: Discussed risks, benefits, alternatives, and potential SEs of treatment. Patient wished to proceed with OMT. OMT was performed to the cervical region, thoracic region, head region, pelvis regionand ribs including soft tissue, functional methods, . Patient tolerated treatment well with good release, increase ROM, and decrease in pain, without complications. Instructed patient to drink plenty of water. Gentle stretches at home. 6. Somatic dysfunction of pelvic region - ICD9: 739.5, ICD10: M99.05 OMT: Discussed risks, benefits, alternatives, and potential SEs of treatment. Patient wished to proceed with OMT. OMT was performed to the cervical region, thoracic region, head region, pelvis regionand ribs including soft tissue, functional methods, . Patient tolerated treatment well with good release, increase ROM, and decrease in pain, without complications. Instructed patient to drink plenty of water. Gentle stretches at home. Mandeep Houser DO Return if no improvement. Follow up with Mandeep Houser DO. To ER if develops chest pain, shortness of breath. Discussed risks, benefits, alternatives, and potential side effects of medications. Patient/Guardian expressed understanding and agreed with the plan. See patient instructions. Mandeep Houser DO [address] [place] [address] documented in this [facility] NoteHNO ID: [id number] Author: MANDEEP HOUSER DO Service: ? Author Type: Physician Type: Progress Notes Filed: 07/21/2024 16:59 Note Text: CC: Sandra Schmitz is a 79 year old female who presents to the office for follow up HPI: Seen in the office on 07/08/2024 as below Cough, chest congestion, sputum production, no fevers or chills. She was started on doxycycline medication. Has had some nausea since being on this antibiotic. Has had some left rib pain since developed this cough 3 weeks ago. + sick contacts. Mood, admits to a lot of fatigue, no SI or HI. Has a lot of support from family No vomiting, or diarrhea HTN, well controlled Heart failure, acute on chronic. 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 Just still with some fatigue but seems to be getting better. No further cough, no sputum production, no fevers or chills. Heart failure. Has an echo to get scheduled and completed for the press operator assistant, taking her medications as prescribed. PAST MEDICAL HISTORY Diagnosis Date Acute acalculous cholecystitis 05/30/2020 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 09/22/2020 Acute on chronic systolic CHF (congestive heart failure) ([facility]) 05/03/2020 Aspiration pneumonia ([facility]) 05/30/2020 Chest pain 05/03/2020 Chest pressure 01/23/2013 Chronic diastolic congestive heart failure ([facility]) 02/14/2021 Clostridium difficile diarrhea 09/28/2020 Complete uterovaginal prolapse Cystocele, midline Essential hypertension 06/14/2020 Homozygous Factor V Leiden mutation ([facility]) 05/03/2020 Hypothyroidism IBS (irritable bowel syndrome) 01/23/2013 Palpitation CHRONIC Post-operative state 05/24/2020 Rectocele 05/25/2020 Shortness of breath 05/03/2020 Status post laparoscopic hysterectomy 05/30/2020 Tubular adenoma of colon 12/09/2020 Uterine prolapse 05/03/2020 PAST SURGICAL HISTORY Procedure Laterality Date COLONOSCOPY 01/07/2015 COLONOSCOPY 12/05/2021 repeat in 5 years COLONOSCOPY GEN ANES 12/06/2009 X3 LAST ONE IN 2009 EGD 11/08/2012 EGD 12/05/2021 INSERT/REPL DEFIB LEAD/GENER OTHR 07/2023 w/ Pacemaker PAST SURGICAL HISTORY OF 05/14/1999 left foot bunionectomy w/screws PAST SURGICAL HISTORY OF 05/14/1981 ectopic w/tube removal PAST SURGICAL HISTORY OF 2009 CYST REMOVED FROM UTERUS PAST SURGICAL HISTORY OF 05/24/2020 TVH, partial colpectomy, anterior colporrhaphy, Dennis transobturator midurethral sling, cystourethroscopy, rectocele repair with perineorrhaphy, laparoscopic lysis of adhesions and excision of bilateral adnexal structures PAST SURGICAL HISTORY OF 09/07/2020 Laparoscopic cholecystectomy with intraoperative cholangiograms. Dr. Ragsdale Current Outpatient Medications Medication Sig furosemide (LASIX) 20 mg tablet Take 1 tablet by mouth once daily. levothyroxine (LEVOXYL) 100 mcg tablet Take 1 tablet by mouth daily before breakfast. losartan (COZAAR) 25 mg tablet Take 1 tablet by mouth once daily. aluminum-magnesium hydroxide-simethicone 200-200-20 mg/5 mL suspension Take 30 mL by mouth every 6 hours as needed. dicyclomine (BENTYL) 10 mg capsule Take 1 capsule by mouth three times a day as needed (abdominal pain) for up to 20 doses. metoprolol succinate ER (TOPROL XL) 25 mg 24 hr tablet Take 1 tablet by mouth daily at bedtime. acetaminophen (TYLENOL) 500 mg tablet Take 2 tablets by mouth every 8 hours as needed for pain. cyanocobalamin (VITAMIN B-12) 1,000 mcg tab Take 1 tablet by mouth once daily. Cholecalciferol, Vitamin D3, 50 mcg (2,000 unit) cap Take 2 capsules by mouth once daily. aspirin, enteric coated (ECOTRIN LOW STRENGTH) 81 mg EC tablet Take 1 tablet by mouth once daily. Current Facility-Administered Medications Medication Dose Route Frequency cyanocobalamin 1,000 mcg injection 1,000 mcg INTRAMUSCULAR ONCE ALLERGIES Allergen Reactions Emilio Inhibitors Intolerance Short of breath, symptoms of heart failure Beta-Blockers (Beta* Intolerance Short of breath, symptoms of heart failure Augmentin [Amoxicil* GI Upset Codeine Mental Status Change Patient felt like she was made out of lead Entresto [Sacubitri* Intolerance Lipitor [Atorvastat* Myalgia Muscle aches Sulfa (Sulfonamide * Intolerance Amlodipine Intolerance lightheaded Social History Tobacco Use Smoking status: Former Current packs/day: 0.00 Types: Cigarettes Quit date: 10/22/2002 Years since quittin.7 Smokeless tobacco: Never Vaping Use Vaping status: Never Used Substance Use Topics Alcohol use: No Drug use: No ROS: See HPI PE: BP 146/82 Pulse 76 Temp (Src) 97 (Temporal) Resp 20 Wt 193 lb (87.5kg) Gen: AANDOX3, NAD, non-toxic appearing, less fatigued appearing HEENT: PERRLA, EOMs intact b/l, na (more content not included)...[facility]03-10-2025 History of Present illness Narrative* Mandeep Houser, - 07/21/2024 4:40 PM EDT CC: Sandra Schmitz is a 79 year old female who presents to the office for follow up HPI: Seen in the office on 07/08/2024 as below Cough, chest congestion, sputum production, no fevers or chills. She was started on doxycycline medication. Has had some nausea since being on this antibiotic. Has had some left rib pain since developed this cough 3 weeks ago. + sick contacts. Mood, admits to a lot of fatigue, no SI or HI. Has a lot of support from family No vomiting, or diarrhea HTN, well controlled Heart failure, acute on chronic. 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 Just still with some fatigue but seems to be getting better. No further cough, no sputum production, no fevers or chills. Heart failure. Has an echo to get scheduled and completed for the press operator assistant, taking her medications as prescribed. PAST MEDICAL HISTORY Diagnosis Date Acute acalculous cholecystitis 05/30/2020 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 09/22/2020 Acute on chronic systolic CHF (congestive heart failure) ([facility]) 05/03/2020 Aspiration pneumonia (HCC) 05/30/2020 Chest pain 05/03/2020 Chest pressure 01/23/2013 Chronic diastolic congestive heart failure (HCC) 02/14/2021 Clostridium difficile diarrhea 09/28/2020 Complete uterovaginal prolapse Cystocele, midline Essential hypertension 06/14/2020 Homozygous Factor V Leiden mutation (HCC) 05/03/2020 Hypothyroidism IBS (irritable bowel syndrome) 01/23/2013 Palpitation CHRONIC Post-operative state 05/24/2020 Rectocele 05/25/2020 Shortness of breath 05/03/2020 Status post laparoscopic hysterectomy 05/30/2020 Tubular adenoma of colon 12/09/2020 Uterine prolapse 05/03/2020 PAST SURGICAL HISTORY Procedure Laterality Date COLONOSCOPY 01/07/2015 COLONOSCOPY 12/05/2021 repeat in 5 years COLONOSCOPY GEN ANES 12/06/2009 X3 LAST ONE IN 2009 EGD 11/08/2012 EGD 12/05/2021 INSERT/REPL DEFIB LEAD/GENER OTHR 07/2023 w/ Pacemaker PAST SURGICAL HISTORY OF 05/14/1999 left foot bunionectomy w/screws PAST SURGICAL HISTORY OF 05/14/1981 ectopic w/tube removal PAST SURGICAL HISTORY OF 2009 CYST REMOVED FROM UTERUS PAST SURGICAL HISTORY OF 05/24/2020 TVH, partial colpectomy, anterior colporrhaphy, Dennis transobturator midurethral sling, cystourethroscopy, rectocele repair with perineorrhaphy, laparoscopic lysis of adhesions and excision of bilateral adnexal structures PAST SURGICAL HISTORY OF 09/07/2020 Laparoscopic cholecystectomy with intraoperative cholangiograms. Dr. Ragsdale Current Outpatient Medications Medication Sig furosemide (LASIX) 20 mg tablet Take 1 tablet by mouth once daily. levothyroxine (LEVOXYL) 100 mcg tablet Take 1 tablet by mouth daily before breakfast. losartan (COZAAR) 25 mg tablet Take 1 tablet by mouth once daily. aluminum-magnesium hydroxide-simethicone 200-200-20 mg/5 mL suspension Take 30 mL by mouth every 6 hours as needed. dicyclomine (BENTYL) 10 mg capsule Take 1 capsule by mouth three times a day as needed (abdominal pain) for up to 20 doses. metoprolol succinate ER (TOPROL XL) 25 mg 24 hr tablet Take 1 tablet by mouth daily at bedtime. acetaminophen (TYLENOL) 500 mg tablet Take 2 tablets by mouth every 8 hours as needed for pain. cyanocobalamin (VITAMIN B-12) 1,000 mcg tab Take 1 tablet by mouth once daily. Cholecalciferol, Vitamin D3, 50 mcg (2,000 unit) cap Take 2 capsules by mouth once daily. aspirin, enteric coated (ECOTRIN LOW STRENGTH) 81 mg EC tablet Take 1 tablet by mouth once daily. Current Facility-Administered Medications Medication Dose Route Frequency cyanocobalamin 1,000 mcg injection 1,000 mcg INTRAMUSCULAR ONCE ALLERGIES Allergen Reactions Emilio Inhibitors Intolerance Short of breath, symptoms of heart failure Beta-Blockers (Beta* Intolerance Short of breath, symptoms of heart failure Augmentin [Amoxicil* GI Upset Codeine Mental Status Change Patient felt like she was made out of lead Entresto [Sacubitri* Intolerance Lipitor [Atorvastat* Myalgia Muscle aches Sulfa (Sulfonamide * Intolerance Amlodipine Intolerance lightheaded Social History Tobacco Use Smoking status: Former Current packs/day: 0.00 Types: Cigarettes Quit date: 10/22/2002 Years since quittin.7 Smokeless tobacco: Never Vaping Use Vaping status: Never Used Substance Use Topics Alcohol use: No Drug use: No ROS: See HPI PE: BP 146/82 Pulse 76 Temp (Src) 97 (Temporal) Resp 20 Wt 193 lb (87.5kg) Gen: A&OX3, NAD, non-toxic appearing, less fatigued appearing HEENT: PERRLA, EOMs intact b/l, nares without drainage, pharynx without erythema, exudate, lesions,or drainage. Uvula midline. MMM Neck: No LAD, no thyromegaly, no meningismus. CV: RRR, 2/6 HSM RUSB soft blowing murmur Lungs: CTA b/l, no wheezing,no cough Skin: No rashes, lesions, or wounds on exposed skin. ASSESSMENT/PLAN: 1. Acute cough - ICD9: 786.2, ICD10: R05.1 (primary diagnosis) Cough is now resolved, she is feeling better No fevers or chills 2. Vitamin B12 deficiency - ICD9: 266.2, ICD10: E53.8 Given injection of vitamin B12 today again in the office for her fatigue She is starting to feel better - CYANOCOBALAMIN (VIT B-12) 1,000 MCG/ML INJECTION SOLUTION 3. Fatigue, unspecified type - ICD9: 780.79, ICD10: R53.83 Given injection of vitamin B12 today again in the office for her fatigue She is starting to feel better 4. Nausea - ICD9: 787.02, ICD10: R11.0 Resolved after stopping the doxycycline 5. Hypothyroidism, acquired - ICD9: 244.9, ICD10: E03.9 - Instructed patient on importance of taking on an empty stomach either first thing in the morning or at bedtime. - continue current dose of Synthroid Stable labs 6. Chronic 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) - ICD9: 428.42, 428.0, ICD10: I50.42 - chronic, managed by Knife Grinder 7. Vitamin D deficiency - ICD9: 268.9, ICD10: E55.9 Increase dose of supplement as d/w her today Mandeep Houser DO Return if no improvement. Follow up with Mandeep Houser DO. To ER if develops chest pain, shortness of breath. Discussed risks, benefits, alternatives, and potential side effects of medications. Patient/Guardian expressed understanding and agreed with the plan. See patient instructions. Mandeep Houser DO [address] [place] [address] documented in this encounterK[facility] History of Present illness Narrative* Boone Neumann Tech - 07/08/2024 3:50 PM EST Radiology Service Progress Note PATIENT NAME: Sandra Schmitz DATE OF SERVICE: July 08, 2024 TIME: 3:31 PM PATIENT IDENTITY VERIFICATION COMPLETED USING TWO (2) IDENTIFIERS: Name and Date of confirmedby patient verbally. FALL SCREENING: Has the patient had 2 falls in the last year or 1 fall with injury or currently using an Ambulatory Assistive Device (Walker, Cane, Wheelchair, Crutches, etc.)? No PATIENT GENDER DATA: Assigned female at . status: : No status:NO. PATIENT RELEVANT IMPLANT DATA REVIEWED: Not Applicable PATIENT PRESENTS WITH AN IMPLANTABLE OR ATTACHED MEDICAL SALES: No RADIOLOGY DEPARTMENT: General X-ray: Exam(s) Completed: Chest X-Ray PERIPHERAL IV DATA: Not applicable SIGNED BY: Marino Arevalo July 08, 2024 3:31 PM documented in this encounterK[facility]02-25-2025 NoteHNO ID: [id number] Author: BOONE NEUMANN Tech Service: ? Author Type: Technologist Type: Progress Notes Filed: 07/08/2024 15:31 Note Text: Radiology Service Progress Note PATIENT NAME: Sandra Schmitz DATE OF SERVICE: July 08, 2024 TIME: 3:31 PM PATIENT IDENTITY VERIFICATION COMPLETED USING TWO (2) IDENTIFIERS: Name and Date of confirmed by patient verbally. FALL SCREENING: Has the patient had 2 falls in the last year or 1 fall with injury or currently using an Ambulatory Assistive Device (Walker, Cane, Wheelchair, Crutches, etc.)? No PATIENT GENDER DATA: Assigned female at . status: : No status: NO. PATIENT RELEVANT IMPLANT DATA REVIEWED: Not Applicable PATIENT PRESENTS WITH AN IMPLANTABLE OR ATTACHED MEDICAL SALES: No RADIOLOGY DEPARTMENT: General X-ray: Exam(s) Completed: Chest X-Ray PERIPHERAL IV DATA: Not applicable SIGNED BY: Marino Arevalo July 08, 2024 3:31 [facility]02-25-2025 NoteHNO ID: [id number] Author: MANDEEP HOUSER, DO Service: ? Author Type: Physician Type: Progress Notes Filed: 07/08/2024 15:48 Note Text: CC: Sandra Schmitz is a 78 year old female who presents to the office for OMT HPI: Cough, chest congestion, sputum production, no fevers or chills. She was started on doxycycline medication. Has had some nausea since being on this antibiotic. Has had some left rib pain since developed this cough 3 weeks ago. + sick contacts. Mood, admits to a lot of fatigue, no SI or HI. Has a lot of support from family No vomiting, or diarrhea HTN, well controlled Heart failure, acute on chronic. 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 assistant more local for better accessibility PAST MEDICAL HISTORY Diagnosis Date Acute acalculous cholecystitis 05/30/2020 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 09/22/2020 Acute on chronic systolic CHF (congestive heart failure) ([facility]) 05/03/2020 Aspiration pneumonia ([facility]) 05/30/2020 Chest pain 05/03/2020 Chest pressure 01/23/2013 Chronic diastolic congestive heart failure (HCC) 02/14/2021 Clostridium difficile diarrhea 09/28/2020 Complete uterovaginal prolapse Cystocele, midline Essential hypertension 06/14/2020 Homozygous Factor V Leiden mutation ([facility]) 05/03/2020 Hypothyroidism IBS (irritable bowel syndrome) 01/23/2013 Palpitation CHRONIC Post-operative state 05/24/2020 Rectocele 05/25/2020 Shortness of breath 05/03/2020 Status post laparoscopic hysterectomy 05/30/2020 Tubular adenoma of colon 12/09/2020 Uterine prolapse 05/03/2020 PAST SURGICAL HISTORY Procedure Laterality Date COLONOSCOPY 01/07/2015 COLONOSCOPY 12/05/2021 repeat in 5 years COLONOSCOPY GEN ANES 12/06/2009 X3 LAST ONE IN 2009 EGD 11/08/2012 EGD 12/05/2021 INSERT/REPL DEFIB LEAD/GENER OTHR 07/2023 w/ Pacemaker PAST SURGICAL HISTORY OF 05/14/1999 left foot bunionectomy w/screws PAST SURGICAL HISTORY OF 05/14/1981 ectopic w/tube removal PAST SURGICAL HISTORY OF 2009 CYST REMOVED FROM UTERUS PAST SURGICAL HISTORY OF 05/24/2020 TVH, partial colpectomy, anterior colporrhaphy, Dennis transobturator midurethral sling, cystourethroscopy, rectocele repair with perineorrhaphy, laparoscopic lysis of adhesions and excision of bilateral adnexal structures PAST SURGICAL HISTORY OF 09/07/2020 Laparoscopic cholecystectomy with intraoperative cholangiograms. Dr. Ragsdale Current Outpatient Medications Medication Sig doxycycline (VIBRA-TABS) 100 mg tablet Take 1 tablet by mouth two times a day for 10 days. furosemide (LASIX) 20 mg tablet Take 1 tablet by mouth once daily. levothyroxine (LEVOXYL) 100 mcg tablet Take 1 tablet by mouth daily before breakfast. losartan (COZAAR) 25 mg tablet Take 1 tablet by mouth once daily. aluminum-magnesium hydroxide-simethicone 200-200-20 mg/5 mL suspension Take 30 mL by mouth every 6 hours as needed. dicyclomine (BENTYL) 10 mg capsule Take 1 capsule by mouth three times a day as needed (abdominal pain) for up to 20 doses. metoprolol succinate ER (TOPROL XL) 25 mg 24 hr tablet Take 1 tablet by mouth daily at bedtime. acetaminophen (TYLENOL) 500 mg tablet Take 2 tablets by mouth every 8 hours as needed for pain. cyanocobalamin (VITAMIN B-12) 1,000 mcg tab Take 1 tablet by mouth once daily. Cholecalciferol, Vitamin D3, 50 mcg (2,000 unit) cap Take 2 capsules by mouth once daily. aspirin, enteric coated (ECOTRIN LOW STRENGTH) 81 mg EC tablet Take 1 tablet by mouth once daily. No current facility-administered medications for this visit. ALLERGIES Allergen Reactions Emilio Inhibitors Intolerance Short of breath, symptoms of heart failure Beta-Blockers (Beta* Intolerance Short of breath, symptoms of heart failure Augmentin [Amoxicil* GI Upset Codeine Mental Status Change Patient felt like she was made out of lead Entresto [Sacubitri* Intolerance Lipitor [Atorvastat* Myalgia Muscle aches Sulfa (Sulfonamide * Intolerance Amlodipine Intolerance lightheaded Social History Tobacco Use Smoking status: Former Current packs/day: 0.00 Types: Cigarettes Quit date: 10/22/2002 Years since quittin.7 Smokeless tobacco: Never Vaping Use Vaping status: Never Used Substance Use Topics Alcohol use: No Drug use: No ROS: See HPI PE: BP 110/70 Pulse 66 Wt 184 lb (83.5kg) SpO2 96% Gen: AANDOX3, NAD, non-toxic appearing, appears fatigued HEENT: PERRLA, EOMs intact b/l, nares without drainage, pharynx without erythema, exudate, lesions, or drainage. Uvula midline. MMM. Neck: No LAD, no thyromegaly, no meningismus. CV: RRR, 2/6 HSM RUSB soft blowing murmur Lungs: CTA b/l, no wheezing Skin: No rashes, lesions, or wounds on exposed skin. No edema, normal pulses ASSESSMENT/PLAN: 1. Vitamin B12 deficiency - ICD9: 266.2, ICD10: E53.8 (primary diagnosis) Injection o (more content not included)...[facility] History of Present illness Narrative* Mandeep Houser, DO - 07/08/2024 2:56 PM EST CC: Sandra Schmitz is a 78 year old female who presents to the office for OMT HPI: Cough, chest congestion, sputum production, no fevers or chills. She was started on doxycycline medication. Has had some nausea since being on this antibiotic. Has had some left rib pain since developed this cough 3 weeks ago. + sick contacts. Mood, admits to a lot of fatigue, no SI or HI. Has a lot of support from family No vomiting, or diarrhea HTN, well controlled Heart failure, acute on chronic. 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 assistant more local for better accessibility PAST MEDICAL HISTORY Diagnosis Date Acute acalculous cholecystitis 05/30/2020 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 09/22/2020 Acute on chronic systolic CHF (congestive heart failure) ([facility]) 05/03/2020 Aspiration pneumonia ([facility]) 05/30/2020 Chest pain 05/03/2020 Chest pressure 01/23/2013 Chronic diastolic congestive heart failure ([facility]) 02/14/2021 Clostridium difficile diarrhea 09/28/2020 Complete uterovaginal prolapse Cystocele, midline Essential hypertension 06/14/2020 Homozygous Factor V Leiden mutation ([facility]) 05/03/2020 Hypothyroidism IBS (irritable bowel syndrome) 01/23/2013 Palpitation CHRONIC Post-operative state 05/24/2020 Rectocele 05/25/2020 Shortness of breath 05/03/2020 Status post laparoscopic hysterectomy 05/30/2020 Tubular adenoma of colon 12/09/2020 Uterine prolapse 05/03/2020 PAST SURGICAL HISTORY Procedure Laterality Date COLONOSCOPY 01/07/2015 COLONOSCOPY 12/05/2021 repeat in 5 years COLONOSCOPY GEN ANES 12/06/2009 X3 LAST ONE IN 2009 EGD 11/08/2012 EGD 12/05/2021 INSERT/REPL DEFIB LEAD/GENER OTHR 07/2023 w/ Pacemaker PAST SURGICAL HISTORY OF 05/14/1999 left foot bunionectomy w/screws PAST SURGICAL HISTORY OF 05/14/1981 ectopic w/tube removal PAST SURGICAL HISTORY OF 2009 CYST REMOVED FROM UTERUS PAST SURGICAL HISTORY OF 05/24/2020 TVH, partial colpectomy, anterior colporrhaphy, Dennis transobturator midurethral sling, cystourethroscopy, rectocele repair with perineorrhaphy, laparoscopic lysis of adhesions and excision of bilateral adnexal structures PAST SURGICAL HISTORY OF 09/07/2020 Laparoscopic cholecystectomy with intraoperative cholangiograms. Dr. Ragsdale Current Outpatient Medications Medication Sig doxycycline (VIBRA-TABS) 100 mg tablet Take 1 tablet by mouth two times a day for 10 days. furosemide (LASIX) 20 mg tablet Take 1 tablet by mouth once daily. levothyroxine (LEVOXYL) 100 mcg tablet Take 1 tablet by mouth daily before breakfast. losartan (COZAAR) 25 mg tablet Take 1 tablet by mouth once daily. aluminum-magnesium hydroxide-simethicone 200-200-20 mg/5 mL suspension Take 30 mL by mouth every 6 hours as needed. dicyclomine (BENTYL) 10 mg capsule Take 1 capsule by mouth three times a day as needed (abdominal pain) for up to 20 doses. metoprolol succinate ER (TOPROL XL) 25 mg 24 hr tablet Take 1 tablet by mouth daily at bedtime. acetaminophen (TYLENOL) 500 mg tablet Take 2 tablets by mouth every 8 hours as needed for pain. cyanocobalamin (VITAMIN B-12) 1,000 mcg tab Take 1 tablet by mouth once daily. Cholecalciferol, Vitamin D3, 50 mcg (2,000 unit) cap Take 2 capsules by mouth once daily. aspirin, enteric coated (ECOTRIN LOW STRENGTH) 81 mg EC tablet Take 1 tablet by mouth once daily. No current facility-administered medications for this visit. ALLERGIES Allergen Reactions Emilio Inhibitors Intolerance Short of breath, symptoms of heart failure Beta-Blockers (Beta* Intolerance Short of breath, symptoms of heart failure Augmentin [Amoxicil* GI Upset Codeine Mental Status Change Patient felt like she was made out of lead Entresto [Sacubitri* Intolerance Lipitor [Atorvastat* Myalgia Muscle aches Sulfa (Sulfonamide * Intolerance Amlodipine Intolerance lightheaded Social History Tobacco Use Smoking status: Former Current packs/day: 0.00 Types: Cigarettes Quit date: 10/22/2002 Years since quittin.7 Smokeless tobacco: Never Vaping Use Vaping status: Never Used Substance Use Topics Alcohol use: No Drug use: No ROS: See HPI PE: BP 110/70 Pulse 66 Wt 184 lb (83.5kg) SpO2 96% Gen: A&OX3, NAD, non-toxic appearing, appears fatigued HEENT: PERRLA, EOMs intact b/l, nares without drainage, pharynx without erythema, exudate, lesions,or drainage. Uvula midline. MMM. Neck: No LAD, no thyromegaly, no meningismus. CV: RRR, 2/6 HSM RUSB soft blowing murmur Lungs: CTA b/l, no wheezing Skin: No rashes, lesions, or wounds on exposed skin. No edema, normal pulses ASSESSMENT/PLAN: 1. Vitamin B12 deficiency - ICD9: 266.2, ICD10: E53.8 (primary diagnosis) Injection of vitamin B12 given today due to fatigue Labs as ordered. - CYANOCOBALAMIN (VIT B-12) 1,000 MCG/ML INJECTION SOLUTION - VITAMIN B12 2. Fatigue, unspecified type - ICD9: 780.79, ICD10: R53.83 Injection of vitamin B12 given today due to fatigue Labs as ordered. Also suspect some depression- she doesn't want to start on SSRI at this time. Consider starting some supplements or light box therapy - CYANOCOBALAMIN (VIT B-12) 1,000 MCG/ML INJECTION SOLUTION - URINALYSIS, WITH MICROSCOPIC - COMPLETE BLOOD COUNT AND DIFFERENTIAL - VITAMIN B12 3. Lightheadedness - ICD9: 780.4, ICD10: R42 Injection of vitamin B12 given today due to fatigue Labs as ordered. Also suspect some depression- she doesn't want to start on SSRI at this time. Consider starting some supplements or light box therapy - URINALYSIS, WITH MICROSCOPIC - COMPLETE BLOOD COUNT AND DIFFERENTIAL 4. Acute cough - ICD9: 786.2, ICD10: R05.1 CXR as ordered No signs of distress Stop doxycycline due to SE with medication - XR CHEST 2V FRONTAL/LAT 5. Chronic 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) - ICD9: 428.42, 428.0, ICD10: I50.42 - chronic, recheck labs Check CXR F/u with Knife Grinder - NT PRO BNP - COMPLETE BLOOD COUNT AND DIFFERENTIAL - CONSULT TO CARDIOLOGY 6. Nausea - ICD9: 787.02, ICD10: R11.0 Labs as ordered, likely secondary to doxycycline SE - URINALYSIS, WITH MICROSCOPIC - COMPREHENSIVE METABOLIC PANEL - NT PRO BNP - COMPLETE BLOOD COUNT AND DIFFERENTIAL 7. Hypothyroidism, acquired - ICD9: 244.9, ICD10: E03.9 - Instructed patient on importance of taking on an empty stomach either first thing in the morning or at bedtime. - THYROID STIMULATING HORMONE - T4 FREE/FREE THYROXINE 8. Anemia, unspecified type - ICD9: 285.9, ICD10: D64.9 - MAGNESIUM 9. Vitamin D deficiency - ICD9: 268.9, ICD10: E55.9 - VITAMIN D 25 HYDROXY 10. Nonischemic cardiomyopathy (HCC) - ICD9: 425.4, ICD10: I42.8 - CONSULT TO CARDIOLOGY Mandeep Houser DO Return if no improvement. Follow up with Mandeep Houser DO. To ER if develops chest pain, shortness of breath. Discussed risks, benefits, alternatives, and potential side effects of medications. Patient/Guardian expressed understanding and agreed with the plan. See patient instructions. Mandeep Houser DO [address] [place] [address] documented in this encounterK[facility] Instructions* Patient Instructions* Mandeep Houser DO - 07/08/2024 2:50 PM EST Knife [employer]inder local options Dr.[address] [place] Options for mood Low dose of valerian root 250-500 mg in the evening Light box therapy consideration of light at 10,000 Lux strength- 20-30 minutes a day in the AM fromFeb through August to help mood, can buy this on [employer] for use documented in this encounterK[facility]02-18-2025 Telephone encounter Note * Telephone Encounter - Mandeep Houser DO - 07/01/2024 12:19 PM EST The following approved medication requests have been transmitted electronically. Requested Prescriptions Signed Prescriptions Disp Refills doxycycline (VIBRA-TABS) 100 mg tablet 20 tablet 0 Sig: Take 1 tablet by mouth two times a day for 10 days. Authorizing Provider: MANDEEP HOUSER DO [facility]02-18-[facility] Miscellaneous Notes* Telephone Encounter - Mandeep Houser DO - 07/01/2024 12:19 PM EST The following approved medication requests have been transmitted electronically. Requested Prescriptions Signed Prescriptions Disp Refills doxycycline (VIBRA-TABS) 100 mg tablet 20 tablet 0 Sig: Take 1 tablet by mouth two times a day for 10 days. Authorizing Provider: MANDEEP HOUSER DO documented in this encounterK[facility]02-07-2025 NoteHNO ID: [id number] Author: MANDEEP HOUSER DO Service: ? Author Type: Physician Type: Progress Notes Filed: 06/20/2024 16:15 Note Text: CC: Sandra Schmitz is a 78 year old female who presents to the office for OMT HPI: Acute on chronic back pain, started yesterday with significant mid to lower back pain. Has been up doing a lot around her home. Otherwise doesn't know what started or triggered her symptoms, no new bowel or bladder changes. Pain is worse when moving from sitting to standing or with standing or walking. No trauma that she is aware of. Pain is severe, has been taking tylenol and using ice and heating pad without relief of symptoms. She is not able to take NSAIDs. Has been doing a lot of new exercise with cardiac rehab which has been held since her back pain flare up. Had improvements after her OMT PAST MEDICAL HISTORY Diagnosis Date Acute acalculous cholecystitis 05/30/2020 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 09/22/2020 Acute on chronic systolic CHF (congestive heart failure) ([facility]) 05/03/2020 Aspiration pneumonia ([facility]) 05/30/2020 Chest pain 05/03/2020 Chest pressure 01/23/2013 Chronic diastolic congestive heart failure (HCC) 02/14/2021 Clostridium difficile diarrhea 09/28/2020 Complete uterovaginal prolapse Cystocele, midline Essential hypertension 06/14/2020 Homozygous Factor V Leiden mutation ([facility]) 05/03/2020 Hypothyroidism IBS (irritable bowel syndrome) 01/23/2013 Palpitation CHRONIC Post-operative state 05/24/2020 Rectocele 05/25/2020 Shortness of breath 05/03/2020 Status post laparoscopic hysterectomy 05/30/2020 Tubular adenoma of colon 12/09/2020 Uterine prolapse 05/03/2020 PAST SURGICAL HISTORY Procedure Laterality Date COLONOSCOPY 01/07/2015 COLONOSCOPY 12/05/2021 repeat in 5 years COLONOSCOPY GEN ANES 12/06/2009 X3 LAST ONE IN 2009 EGD 11/08/2012 EGD 12/05/2021 INSERT/REPL DEFIB LEAD/GENER OTHR 07/2023 w/ Pacemaker PAST SURGICAL HISTORY OF 05/14/1999 left foot bunionectomy w/screws PAST SURGICAL HISTORY OF 05/14/1981 ectopic w/tube removal PAST SURGICAL HISTORY OF 2009 CYST REMOVED FROM UTERUS PAST SURGICAL HISTORY OF 05/24/2020 TV[facility], partial colpectomy, anterior colporrhaphy, Dennis transobturator midurethral sling, cystourethroscopy, rectocele repair with perineorrhaphy, laparoscopic lysis of adhesions and excision of bilateral adnexal structures PAST SURGICAL HISTORY OF 09/07/2020 Laparoscopic cholecystectomy with intraoperative cholangiograms. Dr. Ragsdale Current Outpatient Medications Medication Sig furosemide (LASIX) 20 mg tablet Take 1 tablet by mouth once daily. levothyroxine (LEVOXYL) 100 mcg tablet Take 1 tablet by mouth daily before breakfast. losartan (COZAAR) 25 mg tablet Take 1 tablet by mouth once daily. aluminum-magnesium hydroxide-simethicone 200-200-20 mg/5 mL suspension Take 30 mL by mouth every 6 hours as needed. dicyclomine (BENTYL) 10 mg capsule Take 1 capsule by mouth three times a day as needed (abdominal pain) for up to 20 doses. metoprolol succinate ER (TOPROL XL) 25 mg 24 hr tablet Take 1 tablet by mouth daily at bedtime. acetaminophen (TYLENOL) 500 mg tablet Take 2 tablets by mouth every 8 hours as needed for pain. cyanocobalamin (VITAMIN B-12) 1,000 mcg tab Take 1 tablet by mouth once daily. Cholecalciferol, Vitamin D3, 50 mcg (2,000 unit) cap Take 2 capsules by mouth once daily. aspirin, enteric coated (ECOTRIN LOW STRENGTH) 81 mg EC tablet Take 1 tablet by mouth once daily. No current facility-administered medications for this visit. ALLERGIES Allergen Reactions Emilio Inhibitors Intolerance Short of breath, symptoms of heart failure Beta-Blockers (Beta* Intolerance Short of breath, symptoms of heart failure Augmentin [Amoxicil* GI Upset Codeine Mental Status Change Patient felt like she was made out of lead Entresto [Sacubitri* Intolerance Lipitor [Atorvastat* Myalgia Muscle aches Sulfa (Sulfonamide * Intolerance Amlodipine Intolerance lightheaded Social History Tobacco Use Smoking status: Former Current packs/day: 0.00 Types: Cigarettes Quit date: 10/22/2002 Years since quittin.6 Smokeless tobacco: Never Vaping Use Vaping status: Never Used Substance Use Topics Alcohol use: No Drug use: No ROS: See HPI PE: There were no vitals taken for this visit. Gen: AANDOX3, she appears uncomfortable HEENT: PERRLA, EOMs intact b/l, nares without drainage, pharynx without erythema, exudate, lesions, or drainage. Uvula midline. Neck: supple, No cervical LAD, no thyromegaly, no carotid bruits, suboccipital fullness right head, C3-6NRrSBr Left 7th rib inhalation dysfunction posterior T3-10ERrSBl L1-2NRrSBr Right anterior innominate MS: arthritis changes, antalgic gait No edema. No spinal TTP Intact neurovascular tone of arms and leg ASSESSMENT/PLAN: 1. Chronic bilateral thoracic back pain - ICD (more content not included)... [facility]02-07-2025 History of Present illness Narrative* Mandeep Houser, DO - 06/20/2024 4:13 PM EST CC: Sandra Schmitz is a 78 year old female who presents to the office for OMT HPI: Acute on chronic back pain, started yesterday with significant mid to lower back pain. Has been up doing a lot around her home. Otherwise doesn't know what started or triggered her symptoms, no new bowel or bladder changes. Pain is worse when moving from sitting to standing or with standing or walking. No trauma that she is aware of. Pain is severe, has been taking tylenol and using ice and heating pad without relief of symptoms. She is not able to take NSAIDs. Has been doing a lot of new exercise with cardiac rehab which has been held since her back pain flare up. Had improvements after her OMT PAST MEDICAL HISTORY Diagnosis Date Acute acalculous cholecystitis 05/30/2020 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 09/22/2020 Acute on chronic systolic CHF (congestive heart failure) ([facility]) 05/03/2020 Aspiration pneumonia ([facility]) 05/30/2020 Chest pain 05/03/2020 Chest pressure 01/23/2013 Chronic diastolic congestive heart failure ([facility]) 02/14/2021 Clostridium difficile diarrhea 09/28/2020 Complete uterovaginal prolapse Cystocele, midline Essential hypertension 06/14/2020 Homozygous Factor V Leiden mutation ([facility]) 05/03/2020 Hypothyroidism IBS (irritable bowel syndrome) 01/23/2013 Palpitation CHRONIC Post-operative state 05/24/2020 Rectocele 05/25/2020 Shortness of breath 05/03/2020 Status post laparoscopic hysterectomy 05/30/2020 Tubular adenoma of colon 12/09/2020 Uterine prolapse 05/03/2020 PAST SURGICAL HISTORY Procedure Laterality Date COLONOSCOPY 01/07/2015 COLONOSCOPY 12/05/2021 repeat in 5 years COLONOSCOPY GEN ANES 12/06/2009 X3 LAST ONE IN 2009 EGD 11/08/2012 EGD 12/05/2021 INSERT/REPL DEFIB LEAD/GENER OTHR 07/2023 w/ Pacemaker PAST SURGICAL HISTORY OF 05/14/1999 left foot bunionectomy w/screws PAST SURGICAL HISTORY OF 05/14/1981 ectopic w/tube removal PAST SURGICAL HISTORY OF 2009 CYST REMOVED FROM UTERUS PAST SURGICAL HISTORY OF 05/24/2020 TV[facility], partial colpectomy, anterior colporrhaphy, Dennis transobturator midurethral sling, cystourethroscopy, rectocele repair with perineorrhaphy, laparoscopic lysis of adhesions and excision of bilateral adnexal structures PAST SURGICAL HISTORY OF 09/07/2020 Laparoscopic cholecystectomy with intraoperative cholangiograms. Dr. Ragsdale Current Outpatient Medications Medication Sig furosemide (LASIX) 20 mg tablet Take 1 tablet by mouth once daily. levothyroxine (LEVOXYL) 100 mcg tablet Take 1 tablet by mouth daily before breakfast. losartan (COZAAR) 25 mg tablet Take 1 tablet by mouth once daily. aluminum-magnesium hydroxide-simethicone 200-200-20 mg/5 mL suspension Take 30 mL by mouth every 6 hours as needed. dicyclomine (BENTYL) 10 mg capsule Take 1 capsule by mouth three times a day as needed (abdominal pain) for up to 20 doses. metoprolol succinate ER (TOPROL XL) 25 mg 24 hr tablet Take 1 tablet by mouth daily at bedtime. acetaminophen (TYLENOL) 500 mg tablet Take 2 tablets by mouth every 8 hours as needed for pain. cyanocobalamin (VITAMIN B-12) 1,000 mcg tab Take 1 tablet by mouth once daily. Cholecalciferol, Vitamin D3, 50 mcg (2,000 unit) cap Take 2 capsules by mouth once daily. aspirin, enteric coated (ECOTRIN LOW STRENGTH) 81 mg EC tablet Take 1 tablet by mouth once daily. No current facility-administered medications for this visit. ALLERGIES Allergen Reactions Emilio Inhibitors Intolerance Short of breath, symptoms of heart failure Beta-Blockers (Beta* Intolerance Short of breath, symptoms of heart failure Augmentin [Amoxicil* GI Upset Codeine Mental Status Change Patient felt like she was made out of lead Entresto [Sacubitri* Intolerance Lipitor [Atorvastat* Myalgia Muscle aches Sulfa (Sulfonamide * Intolerance Amlodipine Intolerance lightheaded Social History Tobacco Use Smoking status: Former Current packs/day: 0.00 Types: Cigarettes Quit date: 10/22/2002 Years since quittin.6 Smokeless tobacco: Never Vaping Use Vaping status: Never Used Substance Use Topics Alcohol use: No Drug use: No ROS: See HPI PE: There were no vitals taken for this visit. Gen: A&OX3, she appears uncomfortable HEENT: PERRLA, EOMs intact b/l, nares without drainage, pharynx without erythema, exudate, lesions,or drainage. Uvula midline. Neck: supple, No cervical LAD, no thyromegaly, no carotid bruits, suboccipital fullness right head,C3-6NRrSBr Left 7th rib inhalation dysfunction posterior T3-10ERrSBl L1-2NRrSBr Right anterior innominate MS: arthritis changes, antalgic gait No edema. No spinal TTP Intact neurovascular tone of arms and leg ASSESSMENT/PLAN: 1. Chronic bilateral thoracic back pain - ICD9: 724.1, 338.29, ICD10: M54.6, G89.29 (primary diagnosis) OMT: Discussed risks, benefits, alternatives, and potential SEs of treatment. Patient wished to proceed with OMT. OMT was performed to the cervical region, pelvis region, head region, thoracic region, and ribs including soft tissue, functional methods. Patient tolerated treatment well with good release, increase ROM, and decrease in pain, without complications. Instructed patient to drink plenty of water. Gentle stretches at home. 2. Somatic dysfunction of rib - ICD9: 739.8, ICD10: M99.08 OMT: Discussed risks, benefits, alternatives, and potential SEs of treatment. Patient wished to proceed with OMT. OMT was performed to the cervical region, pelvis region, head region, thoracic region, and ribs including soft tissue, functional methods. Patient tolerated treatment well with good release, increase ROM, and decrease in pain, without complications. Instructed patient to drink plenty of water. Gentle stretches at home. 3. Somatic dysfunction of head region - ICD9: 739.0, ICD10: M99.00 OMT: Discussed risks, benefits, alternatives, and potential SEs of treatment. Patient wished to proceed with OMT. OMT was performed to the cervical region, pelvis region, head region, thoracic region, and ribs including soft tissue, functional methods. Patient tolerated treatment well with good release, increase ROM, and decrease in pain, without complications. Instructed patient to drink plenty of water. Gentle stretches at home. 4. Somatic dysfunction of spine, thoracic - ICD9: 739.2, ICD10: M99.02 OMT: Discussed risks, benefits, alternatives, and potential SEs of treatment. Patient wished to proceed with OMT. OMT was performed to the cervical region, pelvis region, head region, thoracic region, and ribs including soft tissue, functional methods. Patient tolerated treatment well with good release, increase ROM, and decrease in pain, without complications. Instructed patient to drink plenty of water. Gentle stretches at home. 5. Somatic dysfunction of spine, lumbar - ICD9: 739.3, ICD10: M99.03 OMT: Discussed risks, benefits, alternatives, and potential SEs of treatment. Patient wished to proceed with OMT. OMT was performed to the cervical region, pelvis region, head region, thoracic region, and ribs including soft tissue, functional methods. Patient tolerated treatment well with good release, increase ROM, and decrease in pain, without complications. Instructed patient to drink plenty of water. Gentle stretches at home. 6. Somatic dysfunction of spine, cervical - ICD9: 739.1, ICD10: M99.01 OMT: Discussed risks, benefits, alternatives, and potential SEs of treatment. Patient wished to proceed with OMT. OMT was performed to the cervical region, pelvis region, head region, thoracic region, and ribs including soft tissue, functional methods. Patient tolerated treatment well with good release, increase ROM, and decrease in pain, without complications. Instructed patient to drink plenty of water. Gentle stretches at home. 7. Somatic dysfunction of pelvic region - ICD9: 739.5, ICD10: M99.05 OMT: Discussed risks, benefits, alternatives, and potential SEs of treatment. Patient wished to proceed with OMT. OMT was performed to the cervical region, pelvis region, head region, thoracic region, and ribs including soft tissue, functional methods. Patient tolerated treatment well with good release, increase ROM, and decrease in pain, without complications. Instructed patient to drink plenty of water. Gentle stretches at home. Mandeep Houser DO Return if no improvement. Follow up with Mandeep Houser DO. To ER if develops chest pain, shortness of breath. Discussed risks, benefits, alternatives, and potential side effects of medications. Patient/Guardian expressed understanding and agreed with the plan. See patient instructions. Mandeep Houser DO [address] [place] [address] [facility] NoteHNO ID: [id number] Author: MANDEEP HOUSER DO Service: ? Author Type: Physician Type: Progress Notes Filed: 05/30/2024 17:29 Note Text: CC: Sandra Schmitz is a 78 year old female who presents to the office for OMT HPI: Acute on chronic back pain, intermittent symptoms with significant mid to lower back pain. Has been up doing a lot around her home. Otherwise doesn't know what started or triggered her symptoms, but does have significant lumbar scoliosis and arthritis, denies any new bowel or bladder changes. Pain is worse when moving from sitting to standing or with standing or walking. No trauma that she is aware of. Pain is severe, has been taking tylenol and using ice and heating pad without relief of symptoms. She is not able to take NSAIDs. Has been doing a lot of new exercise with cardiac rehab which has been held since her back pain flare up. Had improvements after her OMT PAST MEDICAL HISTORY Diagnosis Date Acute acalculous cholecystitis 05/30/2020 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 09/22/2020 Acute on chronic systolic CHF (congestive heart failure) ([facility]) 05/03/2020 Aspiration pneumonia ([facility]) 05/30/2020 Chest pain 05/03/2020 Chest pressure 01/23/2013 Chronic diastolic congestive heart failure ([facility]) 02/14/2021 Clostridium difficile diarrhea 09/28/2020 Complete uterovaginal prolapse Cystocele, midline Essential hypertension 06/14/2020 Homozygous Factor V Leiden mutation ([facility]) 05/03/2020 Hypothyroidism IBS (irritable bowel syndrome) 01/23/2013 Palpitation CHRONIC Post-operative state 05/24/2020 Rectocele 05/25/2020 Shortness of breath 05/03/2020 Status post laparoscopic hysterectomy 05/30/2020 Tubular adenoma of colon 12/09/2020 Uterine prolapse 05/03/2020 PAST SURGICAL HISTORY Procedure Laterality Date COLONOSCOPY 01/07/2015 COLONOSCOPY 12/05/2021 repeat in 5 years COLONOSCOPY GEN ANES 12/06/2009 X3 LAST ONE IN 2009 EGD 11/08/2012 EGD 12/05/2021 INSERT/REPL DEFIB LEAD/GENER OTHR 07/2023 w/ Pacemaker PAST SURGICAL HISTORY OF 05/14/1999 left foot bunionectomy w/screws PAST SURGICAL HISTORY OF 05/14/1981 ectopic w/tube removal PAST SURGICAL HISTORY OF 2009 CYST REMOVED FROM UTERUS PAST SURGICAL HISTORY OF 05/24/2020 TVH, partial colpectomy, anterior colporrhaphy, Dennis transobturator midurethral sling, cystourethroscopy, rectocele repair with perineorrhaphy, laparoscopic lysis of adhesions and excision of bilateral adnexal structures PAST SURGICAL HISTORY OF 09/07/2020 Laparoscopic cholecystectomy with intraoperative cholangiograms. Dr. Ragsdale Current Outpatient Medications Medication Sig furosemide (LASIX) 20 mg tablet Take 1 tablet by mouth once daily. levothyroxine (LEVOXYL) 100 mcg tablet Take 1 tablet by mouth daily before breakfast. losartan (COZAAR) 25 mg tablet Take 1 tablet by mouth once daily. aluminum-magnesium hydroxide-simethicone 200-200-20 mg/5 mL suspension Take 30 mL by mouth every 6 hours as needed. dicyclomine (BENTYL) 10 mg capsule Take 1 capsule by mouth three times a day as needed (abdominal pain) for up to 20 doses. metoprolol succinate ER (TOPROL XL) 25 mg 24 hr tablet Take 1 tablet by mouth daily at bedtime. acetaminophen (TYLENOL) 500 mg tablet Take 2 tablets by mouth every 8 hours as needed for pain. cyanocobalamin (VITAMIN B-12) 1,000 mcg tab Take 1 tablet by mouth once daily. Cholecalciferol, Vitamin D3, 50 mcg (2,000 unit) cap Take 2 capsules by mouth once daily. aspirin, enteric coated (ECOTRIN LOW STRENGTH) 81 mg EC tablet Take 1 tablet by mouth once daily. No current facility-administered medications for this visit. ALLERGIES Allergen Reactions Emilio Inhibitors Intolerance Short of breath, symptoms of heart failure Beta-Blockers (Beta* Intolerance Short of breath, symptoms of heart failure Augmentin [Amoxicil* GI Upset Codeine Mental Status Change Patient felt like she was made out of lead Entresto [Sacubitri* Intolerance Lipitor [Atorvastat* Myalgia Muscle aches Sulfa (Sulfonamide * Intolerance Amlodipine Intolerance lightheaded Social History Tobacco Use Smoking status: Former Current packs/day: 0.00 Types: Cigarettes Quit date: 10/22/2002 Years since quittin.6 Smokeless tobacco: Never Vaping Use Vaping status: Never Used Substance Use Topics Alcohol use: No Drug use: No ROS: See HPI PE: There were no vitals taken for this visit. Gen: AANDOX3, she appears uncomfortable HEENT: PERRLA, EOMs intact b/l, nares without drainage, pharynx without erythema, exudate, lesions, or drainage. Uvula midline. Neck: supple, No cervical LAD, no thyromegaly, no carotid bruits, suboccipital fullness right head, C3-6NRrSBr Right 9th and 5th rib inhalation dysfunction posterior T3-10ERrSBl L1-2NRrSBr MS: arthritis changes, antalgic gait No edema. No spinal TTP Right anterior pelvis Intact neurovascular tone of ar (more content not included)...[facility]01-17-2025 History of Present illness Narrative* Mandeep Houser, - 05/30/2024 5:22 PM EST CC: Sandra Schmitz is a 78 year old female who presents to the office for OMT HPI: Acute on chronic back pain, intermittent symptoms with significant mid to lower back pain. Has beenup doing a lot around her home. Otherwise doesn't know what started or triggered her symptoms, but does have significant lumbar scoliosis and arthritis, denies any new bowel or bladder changes. Pain is worse when moving from sitting to standing or with standing or walking. No trauma that she is aware of. Pain is severe, has been taking tylenol and using ice and heating pad without relief of symptoms. She is not able to take NSAIDs. Has been doing a lot of new exercise with cardiac rehab which has been held since her back pain flare up. Had improvements after her OMT PAST MEDICAL HISTORY Diagnosis Date Acute acalculous cholecystitis 05/30/2020 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 09/22/2020 Acute on chronic systolic CHF (congestive heart failure) ([facility]) 05/03/2020 Aspiration pneumonia ([facility]) 05/30/2020 Chest pain 05/03/2020 Chest pressure 01/23/2013 Chronic diastolic congestive heart failure ([facility]) 02/14/2021 Clostridium difficile diarrhea 09/28/2020 Complete uterovaginal prolapse Cystocele, midline Essential hypertension 06/14/2020 Homozygous Factor V Leiden mutation ([facility]) 05/03/2020 Hypothyroidism IBS (irritable bowel syndrome) 01/23/2013 Palpitation CHRONIC Post-operative state 05/24/2020 Rectocele 05/25/2020 Shortness of breath 05/03/2020 Status post laparoscopic hysterectomy 05/30/2020 Tubular adenoma of colon 12/09/2020 Uterine prolapse 05/03/2020 PAST SURGICAL HISTORY Procedure Laterality Date COLONOSCOPY 01/07/2015 COLONOSCOPY 12/05/2021 repeat in 5 years COLONOSCOPY GEN ANES 12/06/2009 X3 LAST ONE IN 2009 EGD 11/08/2012 EGD 12/05/2021 INSERT/REPL DEFIB LEAD/GENER OTHR 07/2023 w/ Pacemaker PAST SURGICAL HISTORY OF 05/14/1999 left foot bunionectomy w/screws PAST SURGICAL HISTORY OF 05/14/1981 ectopic w/tube removal PAST SURGICAL HISTORY OF 2009 CYST REMOVED FROM UTERUS PAST SURGICAL HISTORY OF 05/24/2020 TVH, partial colpectomy, anterior colporrhaphy, Dennis transobturator midurethral sling, cystourethroscopy, rectocele repair with perineorrhaphy, laparoscopic lysis of adhesions and excision of bilateral adnexal structures PAST SURGICAL HISTORY OF 09/07/2020 Laparoscopic cholecystectomy with intraoperative cholangiograms. Dr. Ragsdale Current Outpatient Medications Medication Sig furosemide (LASIX) 20 mg tablet Take 1 tablet by mouth once daily. levothyroxine (LEVOXYL) 100 mcg tablet Take 1 tablet by mouth daily before breakfast. losartan (COZAAR) 25 mg tablet Take 1 tablet by mouth once daily. aluminum-magnesium hydroxide-simethicone 200-200-20 mg/5 mL suspension Take 30 mL by mouth every 6 hours as needed. dicyclomine (BENTYL) 10 mg capsule Take 1 capsule by mouth three times a day as needed (abdominal pain) for up to 20 doses. metoprolol succinate ER (TOPROL XL) 25 mg 24 hr tablet Take 1 tablet by mouth daily at bedtime. acetaminophen (TYLENOL) 500 mg tablet Take 2 tablets by mouth every 8 hours as needed for pain. cyanocobalamin (VITAMIN B-12) 1,000 mcg tab Take 1 tablet by mouth once daily. Cholecalciferol, Vitamin D3, 50 mcg (2,000 unit) cap Take 2 capsules by mouth once daily. aspirin, enteric coated (ECOTRIN LOW STRENGTH) 81 mg EC tablet Take 1 tablet by mouth once daily. No current facility-administered medications for this visit. ALLERGIES Allergen Reactions Emilio Inhibitors Intolerance Short of breath, symptoms of heart failure Beta-Blockers (Beta* Intolerance Short of breath, symptoms of heart failure Augmentin [Amoxicil* GI Upset Codeine Mental Status Change Patient felt like she was made out of lead Entresto [Sacubitri* Intolerance Lipitor [Atorvastat* Myalgia Muscle aches Sulfa (Sulfonamide * Intolerance Amlodipine Intolerance lightheaded Social History Tobacco Use Smoking status: Former Current packs/day: 0.00 Types: Cigarettes Quit date: 10/22/2002 Years since quittin.6 Smokeless tobacco: Never Vaping Use Vaping status: Never Used Substance Use Topics Alcohol use: No Drug use: No ROS: See HPI PE: There were no vitals taken for this visit. Gen: A&OX3, she appears uncomfortable HEENT: PERRLA, EOMs intact b/l, nares without drainage, pharynx without erythema, exudate, lesions,or drainage. Uvula midline. Neck: supple, No cervical LAD, no thyromegaly, no carotid bruits, suboccipital fullness right head,C3-6NRrSBr Right 9th and 5th rib inhalation dysfunction posterior T3-10ERrSBl L1-2NRrSBr MS: arthritis changes, antalgic gait No edema. No spinal TTP Right anterior pelvis Intact neurovascular tone of arms and legs ASSESSMENT/PLAN: 1. Chronic bilateral thoracic back pain - ICD9: 724.1, 338.29, ICD10: M54.6, G89.29 (primary diagnosis) OMT: Discussed risks, benefits, alternatives, and potential SEs of treatment. Patient wished to proceed with OMT. OMT was performed to the cervical region, head region, pelvis region, lumbar region, thoracic region, and ribs including soft tissue, functional methods. Patient tolerated treatment well with good release, increase ROM, and decrease in pain, without complications. Instructed patient to drink plenty of water. Gentle stretches at home. 2. Somatic dysfunction of rib - ICD9: 739.8, ICD10: M99.08 OMT: Discussed risks, benefits, alternatives, and potential SEs of treatment. Patient wished to proceed with OMT. OMT was performed to the cervical region, head region, pelvis region, lumbar region, thoracic region, and ribs including soft tissue, functional methods. Patient tolerated treatment well with good release, increase ROM, and decrease in pain, without complications. Instructed patient to drink plenty of water. Gentle stretches at home. 3. Somatic dysfunction of spine, lumbar - ICD9: 739.3, ICD10: M99.03 OMT: Discussed risks, benefits, alternatives, and potential SEs of treatment. Patient wished to proceed with OMT. OMT was performed to the cervical region, head region, pelvis region, lumbar region, thoracic region, and ribs including soft tissue, functional methods. Patient tolerated treatment well with good release, increase ROM, and decrease in pain, without complications. Instructed patient to drink plenty of water. Gentle stretches at home. 4. Somatic dysfunction of spine, thoracic - ICD9: 739.2, ICD10: M99.02 OMT: Discussed risks, benefits, alternatives, and potential SEs of treatment. Patient wished to proceed with OMT. OMT was performed to the cervical region, head region, pelvis region, lumbar region, thoracic region, and ribs including soft tissue, functional methods. Patient tolerated treatment well with good release, increase ROM, and decrease in pain, without complications. Instructed patient to drink plenty of water. Gentle stretches at home. 5. Somatic dysfunction of spine, cervical - ICD9: 739.1, ICD10: M99.01 OMT: Discussed risks, benefits, alternatives, and potential SEs of treatment. Patient wished to proceed with OMT. OMT was performed to the cervical region, head region, pelvis region, lumbar region, thoracic region, and ribs including soft tissue, functional methods. Patient tolerated treatment well with good release, increase ROM, and decrease in pain, without complications. Instructed patient to drink plenty of water. Gentle stretches at home. 6. Somatic dysfunction of pelvic region - ICD9: 739.5, ICD10: M99.05 OMT: Discussed risks, benefits, alternatives, and potential SEs of treatment. Patient wished to proceed with OMT. OMT was performed to the cervical region, head region, pelvis region, lumbar region, thoracic region, and ribs including soft tissue, functional methods. Patient tolerated treatment well with good release, increase ROM, and decrease in pain, without complications. Instructed patient to drink plenty of water. Gentle stretches at home. 7. Somatic dysfunction of head region - ICD9: 739.0, ICD10: M99.00 OMT: Discussed risks, benefits, alternatives, and potential SEs of treatment. Patient wished to proceed with OMT. OMT was performed to the cervical region, head region, pelvis region, lumbar region, thoracic region, and ribs including soft tissue, functional methods. Patient tolerated treatment well with good release, increase ROM, and decrease in pain, without complications. Instructed patient to drink plenty of water. Gentle stretches at home. Mandeep Houser DO Return if no improvement. Follow up with Mandeep Houser DO. To ER if develops chest pain, shortness of breath. Discussed risks, benefits, alternatives, and potential side effects of medications. Patient/Guardian expressed understanding and agreed with the plan. See patient instructions. Mandeep Houser DO [address] [place] [address] [facility] NoteHNO ID: [id number] Author: MANDEEP HOUSER DO Service: ? Author Type: Physician Type: Progress Notes Filed: 05/12/2024 16:24 Note Text: CC: Sandra Schmitz is a 78 year old female who presents to the office for OMT HPI: Acute on chronic back pain, started yesterday with significant mid to lower back pain. Has been up doing a lot around her home. Otherwise doesn't know what started or triggered her symptoms, no new bowel or bladder changes. Pain is worse when moving from sitting to standing or with standing or walking. No trauma that she is aware of. Pain is severe, has been taking tylenol and using ice and heating pad without relief of symptoms. She is not able to take NSAIDs. Has been doing a lot of new exercise with cardiac rehab which has been held since her back pain flare up. Had improvements after her OMT PAST MEDICAL HISTORY Diagnosis Date Acute acalculous cholecystitis 05/30/2020 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 09/22/2020 Acute on chronic systolic CHF (congestive heart failure) ([facility]) 05/03/2020 Aspiration pneumonia ([facility]) 05/30/2020 Chest pain 05/03/2020 Chest pressure 01/23/2013 Chronic diastolic congestive heart failure ([facility]) 02/14/2021 Clostridium difficile diarrhea 09/28/2020 Complete uterovaginal prolapse Cystocele, midline Essential hypertension 06/14/2020 Homozygous Factor V Leiden mutation ([facility]) 05/03/2020 Hypothyroidism IBS (irritable bowel syndrome) 01/23/2013 Palpitation CHRONIC Post-operative state 05/24/2020 Rectocele 05/25/2020 Shortness of breath 05/03/2020 Status post laparoscopic hysterectomy 05/30/2020 Tubular adenoma of colon 12/09/2020 Uterine prolapse 05/03/2020 PAST SURGICAL HISTORY Procedure Laterality Date COLONOSCOPY 01/07/2015 COLONOSCOPY 12/05/2021 repeat in 5 years COLONOSCOPY GEN ANES 12/06/2009 X3 LAST ONE IN 2009 EGD 11/08/2012 EGD 12/05/2021 INSERT/REPL DEFIB LEAD/GENER OTHR 07/2023 w/ Pacemaker PAST SURGICAL HISTORY OF 05/14/1999 left foot bunionectomy w/screws PAST SURGICAL HISTORY OF 05/14/1981 ectopic w/tube removal PAST SURGICAL HISTORY OF 2009 CYST REMOVED FROM UTERUS PAST SURGICAL HISTORY OF 05/24/2020 [facility], partial colpectomy, anterior colporrhaphy, Dennis transobturator midurethral sling, cystourethroscopy, rectocele repair with perineorrhaphy, laparoscopic lysis of adhesions and excision of bilateral adnexal structures PAST SURGICAL HISTORY OF 09/07/2020 Laparoscopic cholecystectomy with intraoperative cholangiograms. Dr. Ragsdale Current Outpatient Medications Medication Sig furosemide (LASIX) 20 mg tablet Take 1 tablet by mouth once daily. levothyroxine (LEVOXYL) 100 mcg tablet Take 1 tablet by mouth daily before breakfast. losartan (COZAAR) 25 mg tablet Take 1 tablet by mouth once daily. aluminum-magnesium hydroxide-simethicone 200-200-20 mg/5 mL suspension Take 30 mL by mouth every 6 hours as needed. dicyclomine (BENTYL) 10 mg capsule Take 1 capsule by mouth three times a day as needed (abdominal pain) for up to 20 doses. metoprolol succinate ER (TOPROL XL) 25 mg 24 hr tablet Take 1 tablet by mouth daily at bedtime. acetaminophen (TYLENOL) 500 mg tablet Take 2 tablets by mouth every 8 hours as needed for pain. cyanocobalamin (VITAMIN B-12) 1,000 mcg tab Take 1 tablet by mouth once daily. Cholecalciferol, Vitamin D3, 50 mcg (2,000 unit) cap Take 2 capsules by mouth once daily. aspirin, enteric coated (ECOTRIN LOW STRENGTH) 81 mg EC tablet Take 1 tablet by mouth once daily. No current facility-administered medications for this visit. ALLERGIES Allergen Reactions Emilio Inhibitors Intolerance Short of breath, symptoms of heart failure Beta-Blockers (Beta* Intolerance Short of breath, symptoms of heart failure Augmentin [Amoxicil* GI Upset Codeine Mental Status Change Patient felt like she was made out of lead Entresto [Sacubitri* Intolerance Lipitor [Atorvastat* Myalgia Muscle aches Sulfa (Sulfonamide * Intolerance Amlodipine Intolerance lightheaded Social History Tobacco Use Smoking status: Former Current packs/day: 0.00 Types: Cigarettes Quit date: 10/22/2002 Years since quittin.5 Smokeless tobacco: Never Vaping Use Vaping status: Never Used Substance Use Topics Alcohol use: No Drug use: No ROS: See HPI PE: There were no vitals taken for this visit. Gen: AANDOX3, she appears uncomfortable HEENT: PERRLA, EOMs intact b/l, nares without drainage, pharynx without erythema, exudate, lesions, or drainage. Uvula midline. Neck: supple, No cervical LAD, no thyromegaly, no carotid bruits, suboccipital fullness right head, C3-6NRrSBr Right 7th and 5th rib inhalation dysfunction posterior T3-10ERrSBl L1-2NRrSBr MS: arthritis changes, antalgic gait No edema. No spinal TTP Intact neurovascular tone of arms and legs ASSESSMENT/PLAN: 1. Chronic bilateral thoracic back pain - ICD9: 724.1, 338.29, (more content not included)...[facility]12-30-[facility] History of Present illness Narrative* Mandeep Houser, - 05/12/2024 4:21 PM EST CC: Sandra Schmitz is a 78 year old female who presents to the office for OMT HPI: Acute on chronic back pain, started yesterday with significant mid to lower back pain. Has been up doing a lot around her home. Otherwise doesn't know what started or triggered her symptoms, no new bowel or bladder changes. Pain is worse when moving from sitting to standing or with standing or walking. No trauma that she is aware of. Pain is severe, has been taking tylenol and using ice and heating pad without relief of symptoms. She is not able to take NSAIDs. Has been doing a lot of new exercise with cardiac rehab which has been held since her back pain flare up. Had improvements after her OMT PAST MEDICAL HISTORY Diagnosis Date Acute acalculous cholecystitis 05/30/2020 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 09/22/2020 Acute on chronic systolic CHF (congestive heart failure) ([facility]) 05/03/2020 Aspiration pneumonia ([facility]) 05/30/2020 Chest pain 05/03/2020 Chest pressure 01/23/2013 Chronic diastolic congestive heart failure ([facility]) 02/14/2021 Clostridium difficile diarrhea 09/28/2020 Complete uterovaginal prolapse Cystocele, midline Essential hypertension 06/14/2020 Homozygous Factor V Leiden mutation ([facility]) 05/03/2020 Hypothyroidism IBS (irritable bowel syndrome) 01/23/2013 Palpitation CHRONIC Post-operative state 05/24/2020 Rectocele 05/25/2020 Shortness of breath 05/03/2020 Status post laparoscopic hysterectomy 05/30/2020 Tubular adenoma of colon 12/09/2020 Uterine prolapse 05/03/2020 PAST SURGICAL HISTORY Procedure Laterality Date COLONOSCOPY 01/07/2015 COLONOSCOPY 12/05/2021 repeat in 5 years COLONOSCOPY GEN ANES 12/06/2009 X3 LAST ONE IN 2009 EGD 11/08/2012 EGD 12/05/2021 INSERT/REPL DEFIB LEAD/GENER OTHR 07/2023 w/ Pacemaker PAST SURGICAL HISTORY OF 05/14/1999 left foot bunionectomy w/screws PAST SURGICAL HISTORY OF 05/14/1981 ectopic w/tube removal PAST SURGICAL HISTORY OF 2009 CYST REMOVED FROM UTERUS PAST SURGICAL HISTORY OF 05/24/2020 [facility], partial colpectomy, anterior colporrhaphy, Dennis transobturator midurethral sling, cystourethroscopy, rectocele repair with perineorrhaphy, laparoscopic lysis of adhesions and excision of bilateral adnexal structures PAST SURGICAL HISTORY OF 09/07/2020 Laparoscopic cholecystectomy with intraoperative cholangiograms. Dr. Ragsdale Current Outpatient Medications Medication Sig furosemide (LASIX) 20 mg tablet Take 1 tablet by mouth once daily. levothyroxine (LEVOXYL) 100 mcg tablet Take 1 tablet by mouth daily before breakfast. losartan (COZAAR) 25 mg tablet Take 1 tablet by mouth once daily. aluminum-magnesium hydroxide-simethicone 200-200-20 mg/5 mL suspension Take 30 mL by mouth every 6 hours as needed. dicyclomine (BENTYL) 10 mg capsule Take 1 capsule by mouth three times a day as needed (abdominal pain) for up to 20 doses. metoprolol succinate ER (TOPROL XL) 25 mg 24 hr tablet Take 1 tablet by mouth daily at bedtime. acetaminophen (TYLENOL) 500 mg tablet Take 2 tablets by mouth every 8 hours as needed for pain. cyanocobalamin (VITAMIN B-12) 1,000 mcg tab Take 1 tablet by mouth once daily. Cholecalciferol, Vitamin D3, 50 mcg (2,000 unit) cap Take 2 capsules by mouth once daily. aspirin, enteric coated (ECOTRIN LOW STRENGTH) 81 mg EC tablet Take 1 tablet by mouth once daily. No current facility-administered medications for this visit. ALLERGIES Allergen Reactions Emilio Inhibitors Intolerance Short of breath, symptoms of heart failure Beta-Blockers (Beta* Intolerance Short of breath, symptoms of heart failure Augmentin [Amoxicil* GI Upset Codeine Mental Status Change Patient felt like she was made out of lead Entresto [Sacubitri* Intolerance Lipitor [Atorvastat* Myalgia Muscle aches Sulfa (Sulfonamide * Intolerance Amlodipine Intolerance lightheaded Social History Tobacco Use Smoking status: Former Current packs/day: 0.00 Types: Cigarettes Quit date: 10/22/2002 Years since quittin.5 Smokeless tobacco: Never Vaping Use Vaping status: Never Used Substance Use Topics Alcohol use: No Drug use: No ROS: See HPI PE: There were no vitals taken for this visit. Gen: A&OX3, she appears uncomfortable HEENT: PERRLA, EOMs intact b/l, nares without drainage, pharynx without erythema, exudate, lesions,or drainage. Uvula midline. Neck: supple, No cervical LAD, no thyromegaly, no carotid bruits, suboccipital fullness right head,C3-6NRrSBr Right 7th and 5th rib inhalation dysfunction posterior T3-10ERrSBl L1-2NRrSBr MS: arthritis changes, antalgic gait No edema. No spinal TTP Intact neurovascular tone of arms and legs ASSESSMENT/PLAN: 1. Chronic bilateral thoracic back pain - ICD9: 724.1, 338.29, ICD10: M54.6, G89.29 (primary diagnosis) OMT: Discussed risks, benefits, alternatives, and potential SEs of treatment. Patient wished to proceed with OMT. OMT was performed to the cervical region, thoracic region, head region, lumbar regionand ribs including soft tissue, functional methods. Patient tolerated treatment well with good release, increase ROM, and decrease in pain, without complications. Instructed patient to drink plenty of water. Gentle stretches at home. 2. Somatic dysfunction of rib - ICD9: 739.8, ICD10: M99.08 OMT: Discussed risks, benefits, alternatives, and potential SEs of treatment. Patient wished to proceed with OMT. OMT was performed to the cervical region, thoracic region, head region, lumbar regionand ribs including soft tissue, functional methods. Patient tolerated treatment well with good release, increase ROM, and decrease in pain, without complications. Instructed patient to drink plenty of water. Gentle stretches at home. 3. Somatic dysfunction of spine, thoracic - ICD9: 739.2, ICD10: M99.02 OMT: Discussed risks, benefits, alternatives, and potential SEs of treatment. Patient wished to proceed with OMT. OMT was performed to the cervical region, thoracic region, head region, lumbar regionand ribs including soft tissue, functional methods. Patient tolerated treatment well with good release, increase ROM, and decrease in pain, without complications. Instructed patient to drink plenty of water. Gentle stretches at home. 4. Somatic dysfunction of spine, cervical - ICD9: 739.1, ICD10: M99.01 OMT: Discussed risks, benefits, alternatives, and potential SEs of treatment. Patient wished to proceed with OMT. OMT was performed to the cervical region, thoracic region, head region, lumbar regionand ribs including soft tissue, functional methods. Patient tolerated treatment well with good release, increase ROM, and decrease in pain, without complications. Instructed patient to drink plenty of water. Gentle stretches at home. 5. Somatic dysfunction of head region - ICD9: 739.0, ICD10: M99.00 OMT: Discussed risks, benefits, alternatives, and potential SEs of treatment. Patient wished to proceed with OMT. OMT was performed to the cervical region, thoracic region, head region, lumbar regionand ribs including soft tissue, functional methods. Patient tolerated treatment well with good release, increase ROM, and decrease in pain, without complications. Instructed patient to drink plenty of water. Gentle stretches at home. 6. Somatic dysfunction of spine, lumbar - ICD9: 739.3, ICD10: M99.03 OMT: Discussed risks, benefits, alternatives, and potential SEs of treatment. Patient wished to proceed with OMT. OMT was performed to the cervical region, thoracic region, head region, lumbar regionand ribs including soft tissue, functional methods. Patient tolerated treatment well with good release, increase ROM, and decrease in pain, without complications. Instructed patient to drink plenty of water. Gentle stretches at home. Mandeep Houser DO Return if no improvement. Follow up with Mandeep Houser DO. To ER if develops chest pain, shortness of breath. Discussed risks, benefits, alternatives, and potential side effects of medications. Patient/Guardian expressed understanding and agreed with the plan. See patient instructions. Mandeep Houser DO [address] [place] [address] [facility] NoteHNO ID: [id number] Author: MANDEEP HOUSER DO Service: ? Author Type: Physician Type: Progress Notes Filed: 04/22/2024 16:49 Note Text: CC: Sandra Schmitz is a 78 year old female who presents to the office for OMT HPI: Acute on chronic back pain, started yesterday with significant mid to lower back pain. Has been up doing a lot around her home. Otherwise doesn't know what started or triggered her symptoms, no new bowel or bladder changes. Pain is worse when moving from sitting to standing or with standing or walking. No trauma that she is aware of. Pain is severe, has been taking tylenol and using ice and heating pad without relief of symptoms. She is not able to take NSAIDs. Has been doing a lot of new exercise with cardiac rehab which has been held since her back pain flare up. Had improvements after her OMT Suprapubic pressure and aching, coming and going the last 2-3 days. Hx of UTI and diverticulitis in the past. No new fevers. Did feel like she had chills yesterday, not today. No nausea or vomiting. Has decreased fiber and drinking more fluids to see if this helps her symptoms PAST MEDICAL HISTORY Diagnosis Date Acute acalculous cholecystitis 05/30/2020 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 09/22/2020 Acute on chronic systolic CHF (congestive heart failure) ([facility]) 05/03/2020 Aspiration pneumonia ([facility]) 05/30/2020 Chest pain 05/03/2020 Chest pressure 01/23/2013 Chronic diastolic congestive heart failure ([facility]) 02/14/2021 Clostridium difficile diarrhea 09/28/2020 Complete uterovaginal prolapse Cystocele, midline Essential hypertension 06/14/2020 Homozygous Factor V Leiden mutation ([facility]) 05/03/2020 Hypothyroidism IBS (irritable bowel syndrome) 01/23/2013 Palpitation CHRONIC Post-operative state 05/24/2020 Rectocele 05/25/2020 Shortness of breath 05/03/2020 Status post laparoscopic hysterectomy 05/30/2020 Tubular adenoma of colon 12/09/2020 Uterine prolapse 05/03/2020 PAST SURGICAL HISTORY Procedure Laterality Date COLONOSCOPY 01/07/2015 COLONOSCOPY 12/05/2021 repeat in 5 years COLONOSCOPY GEN ANES 12/06/2009 X3 LAST ONE IN 2009 EGD 11/08/2012 EGD 12/05/2021 INSERT/REPL DEFIB LEAD/GENER OTHR 07/2023 w/ Pacemaker PAST SURGICAL HISTORY OF 05/14/1999 left foot bunionectomy w/screws PAST SURGICAL HISTORY OF 05/14/1981 ectopic w/tube removal PAST SURGICAL HISTORY OF 2009 CYST REMOVED FROM UTERUS PAST SURGICAL HISTORY OF 05/24/2020 [facility], partial colpectomy, anterior colporrhaphy, Dennis transobturator midurethral sling, cystourethroscopy, rectocele repair with perineorrhaphy, laparoscopic lysis of adhesions and excision of bilateral adnexal structures PAST SURGICAL HISTORY OF 09/07/2020 Laparoscopic cholecystectomy with intraoperative cholangiograms. Dr. Ragsdale Current Outpatient Medications Medication Sig furosemide (LASIX) 20 mg tablet Take 1 tablet by mouth once daily. levothyroxine (LEVOXYL) 100 mcg tablet Take 1 tablet by mouth daily before breakfast. losartan (COZAAR) 25 mg tablet Take 1 tablet by mouth once daily. aluminum-magnesium hydroxide-simethicone 200-200-20 mg/5 mL suspension Take 30 mL by mouth every 6 hours as needed. dicyclomine (BENTYL) 10 mg capsule Take 1 capsule by mouth three times a day as needed (abdominal pain) for up to 20 doses. metoprolol succinate ER (TOPROL XL) 25 mg 24 hr tablet Take 1 tablet by mouth daily at bedtime. acetaminophen (TYLENOL) 500 mg tablet Take 2 tablets by mouth every 8 hours as needed for pain. cyanocobalamin (VITAMIN B-12) 1,000 mcg tab Take 1 tablet by mouth once daily. Cholecalciferol, Vitamin D3, 50 mcg (2,000 unit) cap Take 2 capsules by mouth once daily. aspirin, enteric coated (ECOTRIN LOW STRENGTH) 81 mg EC tablet Take 1 tablet by mouth once daily. No current facility-administered medications for this visit. ALLERGIES Allergen Reactions Emilio Inhibitors Intolerance Short of breath, symptoms of heart failure Beta-Blockers (Beta* Intolerance Short of breath, symptoms of heart failure Augmentin [Amoxicil* GI Upset Codeine Mental Status Change Patient felt like she was made out of lead Entresto [Sacubitri* Intolerance Lipitor [Atorvastat* Myalgia Muscle aches Sulfa (Sulfonamide * Intolerance Amlodipine Intolerance lightheaded Social History Tobacco Use Smoking status: Former Current packs/day: 0.00 Types: Cigarettes Quit date: 10/22/2002 Years since quittin.5 Smokeless tobacco: Never Vaping Use Vaping status: Never Used Substance Use Topics Alcohol use: No Drug use: No ROS: See H PI PE: There were no vitals taken for this visit. Gen: AANDOX3, she appears uncomfortable HEENT: PERRLA, EOMs intact b/l, nares without drainage, pharynx without erythema, exudate, lesions, or drainage. Uvula midline. Neck: supple, No cervical LAD, no thyromegaly, no carotid bruits, suboccipital fullness right head, C3-5 (more content not included)...[facility]12-10-20[facility] History of Present illness Narrative* Mandeep Houser, DO - 04/22/2024 4:46 PM EST CC: Sandra Schmitz is a 78 year old female who presents to the office for OMT HPI: Acute on chronic back pain, started yesterday with significant mid to lower back pain. Has been up doing a lot around her home. Otherwise doesn't know what started or triggered her symptoms, no new bowel or bladder changes. Pain is worse when moving from sitting to standing or with standing or walking. No trauma that she is aware of. Pain is severe, has been taking tylenol and using ice and heating pad without relief of symptoms. She is not able to take NSAIDs. Has been doing a lot of new exercise with cardiac rehab which has been held since her back pain flare up. Had improvements after her OMT Suprapubic pressure and aching, coming and going the last 2-3 days. Hx of UTI and diverticulitis inthe past. No new fevers. Did feel like she had chills yesterday, not today. No nausea or vomiting. Has decreased fiber and drinking more fluids to see if this helps her symptoms PAST MEDICAL HISTORY Diagnosis Date Acute acalculous cholecystitis 05/30/2020 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 09/22/2020 Acute on chronic systolic CHF (congestive heart failure) ([facility]) 05/03/2020 Aspiration pneumonia ([facility]) 05/30/2020 Chest pain 05/03/2020 Chest pressure 01/23/2013 Chronic diastolic congestive heart failure ([facility]) 02/14/2021 Clostridium difficile diarrhea 09/28/2020 Complete uterovaginal prolapse Cystocele, midline Essential hypertension 06/14/2020 Homozygous Factor V Leiden mutation ([facility]) 05/03/2020 Hypothyroidism IBS (irritable bowel syndrome) 01/23/2013 Palpitation CHRONIC Post-operative state 05/24/2020 Rectocele 05/25/2020 Shortness of breath 05/03/2020 Status post laparoscopic hysterectomy 05/30/2020 Tubular adenoma of colon 12/09/2020 Uterine prolapse 05/03/2020 PAST SURGICAL HISTORY Procedure Laterality Date COLONOSCOPY 01/07/2015 COLONOSCOPY 12/05/2021 repeat in 5 years COLONOSCOPY GEN ANES 12/06/2009 X3 LAST ONE IN 2009 EGD 11/08/2012 EGD 12/05/2021 INSERT/REPL DEFIB LEAD/GENER OTHR 07/2023 w/ Pacemaker PAST SURGICAL HISTORY OF 05/14/1999 left foot bunionectomy w/screws PAST SURGICAL HISTORY OF 05/14/1981 ectopic w/tube removal PAST SURGICAL HISTORY OF 2009 CYST REMOVED FROM UTERUS PAST SURGICAL HISTORY OF 05/24/2020 TV[facility], partial colpectomy, anterior colporrhaphy, Dennis transobturator midurethral sling, cystourethroscopy, rectocele repair with perineorrhaphy, laparoscopic lysis of adhesions and excision of bilateral adnexal structures PAST SURGICAL HISTORY OF 09/07/2020 Laparoscopic cholecystectomy with intraoperative cholangiograms. Dr. Ragsdale Current Outpatient Medications Medication Sig furosemide (LASIX) 20 mg tablet Take 1 tablet by mouth once daily. levothyroxine (LEVOXYL) 100 mcg tablet Take 1 tablet by mouth daily before breakfast. losartan (COZAAR) 25 mg tablet Take 1 tablet by mouth once daily. aluminum-magnesium hydroxide-simethicone 200-200-20 mg/5 mL suspension Take 30 mL by mouth every 6 hours as needed. dicyclomine (BENTYL) 10 mg capsule Take 1 capsule by mouth three times a day as needed (abdominal pain) for up to 20 doses. metoprolol succinate ER (TOPROL XL) 25 mg 24 hr tablet Take 1 tablet by mouth daily at bedtime. acetaminophen (TYLENOL) 500 mg tablet Take 2 tablets by mouth every 8 hours as needed for pain. cyanocobalamin (VITAMIN B-12) 1,000 mcg tab Take 1 tablet by mouth once daily. Cholecalciferol, Vitamin D3, 50 mcg (2,000 unit) cap Take 2 capsules by mouth once daily. aspirin, enteric coated (ECOTRIN LOW STRENGTH) 81 mg EC tablet Take 1 tablet by mouth once daily. No current facility-administered medications for this visit. ALLERGIES Allergen Reactions Emilio Inhibitors Intolerance Short of breath, symptoms of heart failure Beta-Blockers (Beta* Intolerance Short of breath, symptoms of heart failure Augmentin [Amoxicil* GI Upset Codeine Mental Status Change Patient felt like she was made out of lead Entresto [Sacubitri* Intolerance Lipitor [Atorvastat* Myalgia Muscle aches Sulfa (Sulfonamide * Intolerance Amlodipine Intolerance lightheaded Social History Tobacco Use Smoking status: Former Current packs/day: 0.00 Types: Cigarettes Quit date: 10/22/2002 Years since quittin.5 Smokeless tobacco: Never Vaping Use Vaping status: Never Used Substance Use Topics Alcohol use: No Drug use: No ROS: See H PI PE: There were no vitals taken for this visit. Gen: A&OX3, she appears uncomfortable HEENT: PERRLA, EOMs intact b/l, nares without drainage, pharynx without erythema, exudate, lesions,or drainage. Uvula midline. Neck: supple, No cervical LAD, no thyromegaly, no carotid bruits, suboccipital fullness right head,C3-5NRrSBr Left 5th rib inhalation dysfunction posterior T3-10ERrSBl L1-2NRrSBr MS: arthritis changes, antalgic gait No edema. No spinal TTP Intact neurovascular tone of arms and legs Abd: soft, mild suprapubic and LLQ discomfort without r/r/g, normal BS, no obvious masses ASSESSMENT/PLAN: 1. Suprapubic pain - ICD9: 789.09, ICD10: R10.2 (primary diagnosis) - urine in office is normal. Check labs as ordered, will change to a bland low fiber diet for a fewdays. If symptoms worsen, start rx for antibiotic or go to hospital due to risk of acute diverticulitis. - UA DIP, URINE (POC) - URINE CULTURE - COMPREHENSIVE METABOLIC PANEL - COMPLETE BLOOD COUNT AND DIFFERENTIAL - LIPASE - C-REACTIVE PROTEIN 2. Somatic dysfunction of head region - ICD9: 739.0, ICD10: M99.00 OMT: Discussed risks, benefits, alternatives, and potential SEs of treatment. Patient wished to proceed with OMT. OMT was performed to the cervical region, head region, pelvis region, lumbar region, thoracic region, and ribs including soft tissue, functional methods Patient tolerated treatment wellwith good release, increase ROM, and decrease in pain, without complications. Instructed patient todrink plenty of water. Gentle stretches at home. 3. Chronic bilateral thoracic back pain - ICD9: 724.1, 338.29, ICD10: M54.6, G89.29 OMT: Discussed risks, benefits, alternatives, and potential SEs of treatment. Patient wished to proceed with OMT. OMT was performed to the cervical region, head region, pelvis region, lumbar region, thoracic region, and ribs including soft tissue, functional methods Patient tolerated treatment wellwith good release, increase ROM, and decrease in pain, without complications. Instructed patient todrink plenty of water. Gentle stretches at home. 4. Somatic dysfunction of rib - ICD9: 739.8, ICD10: M99.08 OMT: Discussed risks, benefits, alternatives, and potential SEs of treatment. Patient wished to proceed with OMT. OMT was performed to the cervical region, head region, pelvis region, lumbar region, thoracic region, and ribs including soft tissue, functional methods Patient tolerated treatment wellwith good release, increase ROM, and decrease in pain, without complications. Instructed patient todrink plenty of water. Gentle stretches at home. 5. Somatic dysfunction of spine, cervical - ICD9: 739.1, ICD10: M99.01 OMT: Discussed risks, benefits, alternatives, and potential SEs of treatment. Patient wished to proceed with OMT. OMT was performed to the cervical region, head region, pelvis region, lumbar region, thoracic region, and ribs including soft tissue, functional methods Patient tolerated treatment wellwith good release, increase ROM, and decrease in pain, without complications. Instructed patient todrink plenty of water. Gentle stretches at home. 6. Somatic dysfunction of spine, thoracic - ICD9: 739.2, ICD10: M99.02 OMT: Discussed risks, benefits, alternatives, and potential SEs of treatment. Patient wished to proceed with OMT. OMT was performed to the cervical region, head region, pelvis region, lumbar region, thoracic region, and ribs including soft tissue, functional methods Patient tolerated treatment wellwith good release, increase ROM, and decrease in pain, without complications. Instructed patient todrink plenty of water. Gentle stretches at home. 7. Somatic dysfunction of pelvic region - ICD9: 739.5, ICD10: M99.05 OMT: Discussed risks, benefits, alternatives, and potential SEs of treatment. Patient wished to proceed with OMT. OMT was performed to the cervical region, head region, pelvis region, lumbar region, thoracic region, and ribs including soft tissue, functional methods Patient tolerated treatment wellwith good release, increase ROM, and decrease in pain, without complications. Instructed patient todrink plenty of water. Gentle stretches at home. 8. Somatic dysfunction of spine, lumbar - ICD9: 739.3, ICD10: M99.03 OMT: Discussed risks, benefits, alternatives, and potential SEs of treatment. Patient wished to proceed with OMT. OMT was performed to the cervical region, head region, pelvis region, lumbar region, thoracic region, and ribs including soft tissue, functional methods Patient tolerated treatment wellwith good release, increase ROM, and decrease in pain, without complications. Instructed patient todrink plenty of water. Gentle stretches at home. Mandeep Houser DO Return if no improvement. Follow up with Mandeep Houser DO. To ER if develops chest pain, shortness of breath,. Discussed risks, benefits, alternatives, and potential side effects of medications. Patient/Guardian expressed understanding and agreed with the plan. See patient instructions. Mandeep Houser DO [address] [place] [address] [facility] Telephone encounter Note * Telephone Encounter - Mane Pennington LPN - 04/08/2024 9:25 AM EST The patient has been identified by name and date of : Yes Caregiver verified no other encounters exist for this prescription request: Yes Caregiver confirmed with patient/requestor that no other refills are due, in the near future, with this provider at this time: Yes The last office visit in the department: 02/12/2024 Does the patient have a future office visit with this provider/department: Yes 04/22/2024 Requested Prescriptions Pending Prescriptions Disp Refills furosemide (LASIX) 20 mg tablet 90 tablet 1 Sig: Take 1 tablet by mouth once daily. levothyroxine (LEVOXYL) 100 mcg tablet 90 tablet 1 Sig: Take 1 tablet by mouth daily before breakfast. thyroid medication rx runs out next month. Mane Pennington LPN April 08, 2024 9:26 AM [facility] Miscellaneous Notes* Telephone Encounter - Mane Pennington LPN - 04/08/2024 9:25 AM EST The patient has been identified by name and date of : Yes Caregiver verified no other encounters exist for this prescription request: Yes Caregiver confirmed with patient/requestor that no other refills are due, in the near future, with this provider at this time: Yes The last office visit in the department: 02/12/2024 Does the patient have a future office visit with this provider/department: Yes 04/22/2024 Requested Prescriptions Pending Prescriptions Disp Refills furosemide (LASIX) 20 mg tablet 90 tablet 1 Sig: Take 1 tablet by mouth once daily. levothyroxine (LEVOXYL) 100 mcg tablet 90 tablet 1 Sig: Take 1 tablet by mouth daily before breakfast. thyroid medication rx runs out next month. Mane Pennington LPN April 08, 2024 9:26 AM documented in this [facility]24 Telephone encounter Note * Telephone Encounter - Phyllis Levin MA - 03/24/2024 9:51 AM EST Pt notified. Phyllis Levin MA [facility]-11-[facility]24 Miscellaneous Notes* Telephone Encounter - Phyllis Levin MA - 03/24/2024 9:51 AM EST Pt notified. Phyllis Levin MA * Telephone Encounter - Mandeep Houser DO - 03/21/2024 5:06 PM EST The following approved medication requests have been transmitted electronically. Requested Prescriptions Signed Prescriptions Disp Refills doxycycline (VIBRA-TABS) 100 mg tablet 20 tablet 0 Sig: Take 1 tablet by mouth two times a day for 10 days. Authorizing Provider: MANDEEP HOUSER DO * Telephone Encounter - Sanjeev Carpio RN - 03/21/2024 11:15 AM EST Patient reports she saw pcp on 03-18-24 for OMT. Reports pcp was going to call in AB to [facility], for her scratchy throat, sinus drainage, pt could take if the s/s continue. Reports [facility] never recv'd the Rx. Asking if pcp can send the Rx? documented in this encounterK[facility]24 Telephone encounter Note * Telephone Encounter - Mandeep Houser DO - 03/21/2024 5:06 PM EST The following approved medication requests have been transmitted electronically. Requested Prescriptions Signed Prescriptions Disp Refills doxycycline (VIBRA-TABS) 100 mg tablet 20 tablet 0 Sig: Take 1 tablet by mouth two times a day for 10 days. Authorizing Provider: MANDEEP HOUSER DO [facility]11-08-2024 Telephone encounter Note* Telephone Encounter - Sanjeev Carpio RN - 03/21/2024 11:15 AM EST Patient reports she saw pcp on 03-18-24 for OMT. Reports pcp was going to call in AB to [facility], for her scratchy throat, sinus drainage, pt could take if the s/s continue. Reports [facility] never recv'd the Rx. Asking if pcp can send the Rx? [facility]10-24-2024 Telephone encounter Note* Telephone Encounter - Sanjeev Carpio RN - 03/06/2024 2:23 PM EDT Pt returned call and given provider's message below with verbalized understanding. [facility] Miscellaneous Notes* Telephone Encounter - Sanjeev Carpio RN - 03/06/2024 2:23 PM EDT Pt returned call and given provider's message below with verbalized understanding. * Telephone Encounter - Meena Brown LPN - 03/06/2024 10:20 AM EDT Left message to return call. * Telephone Encounter - Mandeep Houser DO - 03/05/2024 10:33 PM EDT Please call patient and let her know that her recent thyroid labs are all stable Mandeep Houser DO documented in this [facility]24 Telephone encounter Note * Telephone Encounter - Meena Brown LPN - 03/06/2024 10:20 AM EDT Left message to return call. [facility] Telephone encounter Note* Telephone Encounter - Mandeep Houser DO - 03/05/2024 10:33 PM EDT Please call patient and let her know that her recent thyroid labs are all stable Mandeep Houser DO [facility]10-[facility]24 NoteHNO ID: [id number] Author: MANDEEP HOUSER DO Service: ? Author Type: Physician Type: Progress Notes Filed: 02/12/2024 16:00 Note Text: CC: Sandra Schmitz is a 78 year old female who presents to the office for OMT HPI: Acute on chronic back pain, started yesterday with significant mid to lower back pain. Has been up doing a lot around her home. Otherwise doesn't know what started or triggered her symptoms, no new bowel or bladder changes. Pain is worse when moving from sitting to standing or with standing or walking. No trauma that she is aware of. Pain is severe, has been taking tylenol and using ice and heating pad without relief of symptoms. She is not able to take NSAIDs. Has been doing a lot of new exercise with cardiac rehab which has been held since her back pain flare up. Had improvements after her OMT PAST MEDICAL HISTORY Diagnosis Date Acute acalculous cholecystitis 05/30/2020 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 09/22/2020 Acute on chronic systolic CHF (congestive heart failure) (HCC) 05/03/2020 Aspiration pneumonia (HCC) 05/30/2020 Chest pain 05/03/2020 Chest pressure 01/23/2013 Chronic diastolic congestive heart failure (HCC) 02/14/2021 Clostridium difficile diarrhea 09/28/2020 Complete uterovaginal prolapse Cystocele, midline Essential hypertension 06/14/2020 Homozygous Factor V Leiden mutation (HCC) 05/03/2020 Hypothyroidism IBS (irritable bowel syndrome) 01/23/2013 Palpitation CHRONIC Post-operative state 05/24/2020 Rectocele 05/25/2020 Shortness of breath 05/03/2020 Status post laparoscopic hysterectomy 05/30/2020 Tubular adenoma of colon 12/09/2020 Uterine prolapse 05/03/2020 PAST SURGICAL HISTORY Procedure Laterality Date COLONOSCOPY 01/07/2015 COLONOSCOPY 12/05/2021 repeat in 5 years COLONOSCOPY GEN ANES 12/06/2009 X3 LAST ONE IN 2009 EGD 11/08/2012 EGD 12/05/2021 INSERT/REPL DEFIB LEAD/GENER OTHR 07/2023 w/ Pacemaker PAST SURGICAL HISTORY OF 05/14/1999 left foot bunionectomy w/screws PAST SURGICAL HISTORY OF 05/14/1981 ectopic w/tube removal PAST SURGICAL HISTORY OF 2009 CYST REMOVED FROM UTERUS PAST SURGICAL HISTORY OF 05/24/2020 TVH, partial colpectomy, anterior colporrhaphy, Dennis transobturator midurethral sling, cystourethroscopy, rectocele repair with perineorrhaphy, laparoscopic lysis of adhesions and excision of bilateral adnexal structures PAST SURGICAL HISTORY OF 09/07/2020 Laparoscopic cholecystectomy with intraoperative cholangiograms. Dr. Ragsdale Current Outpatient Medications Medication Sig losartan (COZAAR) 25 mg tablet Take 1 tablet by mouth once daily. aluminum-magnesium hydroxide-simethicone 200-200-20 mg/5 mL suspension Take 30 mL by mouth every 6 hours as needed. dicyclomine (BENTYL) 10 mg capsule Take 1 capsule by mouth three times a day as needed (abdominal pain) for up to 20 doses. levothyroxine (LEVOXYL) 100 mcg tablet Take 1 tablet by mouth daily before breakfast. furosemide (LASIX) 20 mg tablet Take 1 tablet by mouth once daily. metoprolol succinate ER (TOPROL XL) 25 mg 24 hr tablet Take 1 tablet by mouth daily at bedtime. acetaminophen (TYLENOL) 500 mg tablet Take 2 tablets by mouth every 8 hours as needed for pain. cyanocobalamin (VITAMIN B-12) 1,000 mcg tab Take 1 tablet by mouth once daily. Cholecalciferol, Vitamin D3, 50 mcg (2,000 unit) cap Take 2 capsules by mouth once daily. aspirin, enteric coated (ECOTRIN LOW STRENGTH) 81 mg EC tablet Take 1 tablet by mouth once daily. No current facility-administered medications for this visit. ALLERGIES Allergen Reactions Emilio Inhibitors Intolerance Short of breath, symptoms of heart failure Beta-Blockers (Beta* Intolerance Short of breath, symptoms of heart failure Augmentin [Amoxicil* GI Upset Codeine Mental Status Change Patient felt like she was made out of lead Entresto [Sacubitri* Intolerance Lipitor [Atorvastat* Myalgia Muscle aches Sulfa (Sulfonamide * Intolerance Amlodipine Intolerance lightheaded Social History Tobacco Use Smoking status: Former Current packs/day: 0.00 Types: Cigarettes Quit date: 10/22/2002 Years since quittin.3 Smokeless tobacco: Never Vaping Use Vaping status: Never Used Substance Use Topics Alcohol use: No Drug use: No ROS: See HPI PE: There were no vitals taken for this visit. Gen: AANDOX3, she appears uncomfortable HEENT: PERRLA, EOMs intact b/l, nares without drainage, pharynx without erythema, exudate, lesions, or drainage. Uvula midline. Neck: supple, No cervical LAD, no thyromegaly, no carotid bruits, suboccipital fullness right head, C3-5NRrSBr Left 5th rib inhalation dysfunction posterior T3-10ERrSBl L1-2NRrSBr MS: arthritis changes, antalgic gait No edema. No spinal TTP Intact neurovascular tone of arms and legs ASSESSMENT/PLAN: 1. Hypothyroidism, acquired - ICD9: 244.9, ICD10: E03.9 (primary diagnos (more content not included)...[facility]10-01-2024 History of Present illness Narrative* Mandeep Houser, - 02/12/2024 2:11 PM EDT CC: Sandra Schmitz is a 78 year old female who presents to the office for OMT HPI: Acute on chronic back pain, started yesterday with significant mid to lower back pain. Has been up doing a lot around her home. Otherwise doesn't know what started or triggered her symptoms, no new bowel or bladder changes. Pain is worse when moving from sitting to standing or with standing or walking. No trauma that she is aware of. Pain is severe, has been taking tylenol and using ice and heating pad without relief of symptoms. She is not able to take NSAIDs. Has been doing a lot of new exercise with cardiac rehab which has been held since her back pain flare up. Had improvements after her OMT PAST MEDICAL HISTORY Diagnosis Date Acute acalculous cholecystitis 05/30/2020 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 09/22/2020 Acute on chronic systolic CHF (congestive heart failure) ([facility]) 05/03/2020 Aspiration pneumonia ([facility]) 05/30/2020 Chest pain 05/03/2020 Chest pressure 01/23/2013 Chronic diastolic congestive heart failure ([facility]) 02/14/2021 Clostridium difficile diarrhea 09/28/2020 Complete uterovaginal prolapse Cystocele, midline Essential hypertension 06/14/2020 Homozygous Factor V Leiden mutation ([facility]) 05/03/2020 Hypothyroidism IBS (irritable bowel syndrome) 01/23/2013 Palpitation CHRONIC Post-operative state 05/24/2020 Rectocele 05/25/2020 Shortness of breath 05/03/2020 Status post laparoscopic hysterectomy 05/30/2020 Tubular adenoma of colon 12/09/2020 Uterine prolapse 05/03/2020 PAST SURGICAL HISTORY Procedure Laterality Date COLONOSCOPY 01/07/2015 COLONOSCOPY 12/05/2021 repeat in 5 years COLONOSCOPY GEN ANES 12/06/2009 X3 LAST ONE IN 2009 EGD 11/08/2012 EGD 12/05/2021 INSERT/REPL DEFIB LEAD/GENER OTHR 07/2023 w/ Pacemaker PAST SURGICAL HISTORY OF 05/14/1999 left foot bunionectomy w/screws PAST SURGICAL HISTORY OF 05/14/1981 ectopic w/tube removal PAST SURGICAL HISTORY OF 2009 CYST REMOVED FROM UTERUS PAST SURGICAL HISTORY OF 05/24/2020 TVH, partial colpectomy, anterior colporrhaphy, Dennis transobturator midurethral sling, cystourethroscopy, rectocele repair with perineorrhaphy, laparoscopic lysis of adhesions and excision of bilateral adnexal structures PAST SURGICAL HISTORY OF 09/07/2020 Laparoscopic cholecystectomy with intraoperative cholangiograms. Dr. Ragsdale Current Outpatient Medications Medication Sig losartan (COZAAR) 25 mg tablet Take 1 tablet by mouth once daily. aluminum-magnesium hydroxide-simethicone 200-200-20 mg/5 mL suspension Take 30 mL by mouth every 6 hours as needed. dicyclomine (BENTYL) 10 mg capsule Take 1 capsule by mouth three times a day as needed (abdominal pain) for up to 20 doses. levothyroxine (LEVOXYL) 100 mcg tablet Take 1 tablet by mouth daily before breakfast. furosemide (LASIX) 20 mg tablet Take 1 tablet by mouth once daily. metoprolol succinate ER (TOPROL XL) 25 mg 24 hr tablet Take 1 tablet by mouth daily at bedtime. acetaminophen (TYLENOL) 500 mg tablet Take 2 tablets by mouth every 8 hours as needed for pain. cyanocobalamin (VITAMIN B-12) 1,000 mcg tab Take 1 tablet by mouth once daily. Cholecalciferol, Vitamin D3, 50 mcg (2,000 unit) cap Take 2 capsules by mouth once daily. aspirin, enteric coated (ECOTRIN LOW STRENGTH) 81 mg EC tablet Take 1 tablet by mouth once daily. No current facility-administered medications for this visit. ALLERGIES Allergen Reactions Emilio Inhibitors Intolerance Short of breath, symptoms of heart failure Beta-Blockers (Beta* Intolerance Short of breath, symptoms of heart failure Augmentin [Amoxicil* GI Upset Codeine Mental Status Change Patient felt like she was made out of lead Entresto [Sacubitri* Intolerance Lipitor [Atorvastat* Myalgia Muscle aches Sulfa (Sulfonamide * Intolerance Amlodipine Intolerance lightheaded Social History Tobacco Use Smoking status: Former Current packs/day: 0.00 Types: Cigarettes Quit date: 10/22/2002 Years since quittin.3 Smokeless tobacco: Never Vaping Use Vaping status: Never Used Substance Use Topics Alcohol use: No Drug use: No ROS: See HPI PE: There were no vitals taken for this visit. Gen: A&OX3, she appears uncomfortable HEENT: PERRLA, EOMs intact b/l, nares without drainage, pharynx without erythema, exudate, lesions,or drainage. Uvula midline. Neck: supple, No cervical LAD, no thyromegaly, no carotid bruits, suboccipital fullness right head,C3-5NRrSBr Left 5th rib inhalation dysfunction posterior T3-10ERrSBl L1-2NRrSBr MS: arthritis changes, antalgic gait No edema. No spinal TTP Intact neurovascular tone of arms and legs ASSESSMENT/PLAN: 1. Hypothyroidism, acquired - ICD9: 244.9, ICD10: E03.9 (primary diagnosis) - Instructed patient on importance of taking on an empty stomach either first thing in the morning or at bedtime. - continue current dose of Synthroid Check labs as ordered. - THYROID STIMULATING HORMONE - T4 FREE/FREE THYROXINE - T3, FREE 2. Chronic bilateral thoracic back pain - ICD9: 724.1, 338.29, ICD10: M54.6, G89.29 OMT: Discussed risks, benefits, alternatives, and potential SEs of treatment. Patient wished to proceed with OMT. OMT was performed to the cervical region, head region, lumbar region, thoracic region, and ribs including soft tissue, functional methods, and HVLA. Patient tolerated treatment well with good release, increase ROM, and decrease in pain, without complications. Instructed patient to drink plenty of water. Gentle stretches at home. 3. Somatic dysfunction of rib - ICD9: 739.8, ICD10: M99.08 OMT: Discussed risks, benefits, alternatives, and potential SEs of treatment. Patient wished to proceed with OMT. OMT was performed to the cervical region, head region, lumbar region, thoracic region, and ribs including soft tissue, functional methods, and HVLA. Patient tolerated treatment well with good release, increase ROM, and decrease in pain, without complications. Instructed patient to drink plenty of water. Gentle stretches at home. 4. Somatic dysfunction of spine, cervical - ICD9: 739.1, ICD10: M99.01 OMT: Discussed risks, benefits, alternatives, and potential SEs of treatment. Patient wished to proceed with OMT. OMT was performed to the cervical region, head region, lumbar region, thoracic region, and ribs including soft tissue, functional methods, and HVLA. Patient tolerated treatment well with good release, increase ROM, and decrease in pain, without complications. Instructed patient to drink plenty of water. Gentle stretches at home. 5. Somatic dysfunction of spine, thoracic - ICD9: 739.2, ICD10: M99.02 OMT: Discussed risks, benefits, alternatives, and potential SEs of treatment. Patient wished to proceed with OMT. OMT was performed to the cervical region, head region, lumbar region, thoracic region, and ribs including soft tissue, functional methods, and HVLA. Patient tolerated treatment well with good release, increase ROM, and decrease in pain, without complications. Instructed patient to drink plenty of water. Gentle stretches at home. 6. Somatic dysfunction of spine, lumbar - ICD9: 739.3, ICD10: M99.03 OMT: Discussed risks, benefits, alternatives, and potential SEs of treatment. Patient wished to proceed with OMT. OMT was performed to the cervical region, head region, lumbar region, thoracic region, and ribs including soft tissue, functional methods, and HVLA. Patient tolerated treatment well with good release, increase ROM, and decrease in pain, without complications. Instructed patient to drink plenty of water. Gentle stretches at home. 7. Somatic dysfunction of head region - ICD9: 739.0, ICD10: M99.00 OMT: Discussed risks, benefits, alternatives, and potential SEs of treatment. Patient wished to proceed with OMT. OMT was performed to the cervical region, head region, lumbar region, thoracic region, and ribs including soft tissue, functional methods, and HVLA. Patient tolerated treatment well with good release, increase ROM, and decrease in pain, without complications. Instructed patient to drink plenty of water. Gentle stretches at home. Mandeep Houser DO Return if no improvement. Follow up with Mandeep Houser DO. To ER if develops chest pain, shortness of breath. Discussed risks, benefits, alternatives, and potential side effects of medications. Patient/Guardian expressed understanding and agreed with the plan. See patient instructions. Mandeep Houser DO [address] [place] [address] documented in this [facility]09-[facility]24 NoteHNO ID: [id number] Author: ANGEL CASTRO DO Service: ? Author Type: Physician Type: Progress Notes Filed: 02/07/2024 14:40 Note Text: [facility] Department of Cardiovascular Medicine SECTION OF [facility] OUTPATIENT VISIT DATE February 07, 2024 OUTPATIENT VISIT TYPE ESTABLISHED PATIENT Name: Sandra Schmitz : 1945 Date: February 07, 2024 PRIMARY CARE PHYSICIAN: Mandeep Houser [address] [place] [address] REFERRING PHYSICIAN: No referring provider defined for this encounter. CHIEF COMPLAINT: Patient presents with: CARD Follow Up 3 Month: PMH: non-ischemic CM, HTN, Hypothyroidism, LBBB s/p CUT PLUG PACKER-D IMPRESSION / PLAN: Severe nonischemic cardiomyopathy status post CUT PLUG PACKER-D in July 2023. - [facility] 10/2021: mod LAD, D1 prox 40%, mild RCA disease - GDMT: Unable to tolerate Jardiance and Entresto, continue losartan 40 mg daily and metoprolol ER 25 mg daily and unable to tolerate higher doses. We discussed carvedilol versus metoprolol and will continue metoprolol for now. Lasix 20 mg daily and discussed increasing doses if she has any significant weight gain or shortness of breath or increasing abdominal girth. - s/p CUT PLUG PACKER-D 07/16/23 at [facility] - Follows with advanced heart failure, - Follows with EPDr. Wellington and continue follow-up in the device clinic Left bundle branch block - s/p CUT PLUG PACKER-D 07/16/23 at [facility] - Follows with EP, Dr. Wellington Nonobstructive coronary artery disease - [facility] 10/2021: mod LAD, D1 prox 40%, mild RCA disease - Pharm MPI stress 07/11/23: No inducible ischemia or scar - Patient appears compensated from cardiac standpoint - Continue ASA and BB as currently ordered - FLP - Pravastatin vs PCSK9i vs bempedoic acid Valvular heart disease - Echo 06/2023: - Moderate (1-2+) MR - Mild (1+) TR - Mild (1+) AI - Emphasis on afterload reduction - Annual echocardiogram monitoring Mixed hyperlipidemia - Currently on no lipid-lowering agents - Myalgias with Atorvastatin and Rosuvastatin - Chest pressure with Zetia - Last lipid panel 07/2022 with LDL 137 - Normal LFTs 07/2023 Follow Up Instructions Return in about 6 months (around 08/06/2024) for Echo before next visit. ORDERS FOR TODAY'S VISIT: Office Visit on 02/07/24 ECHO HISTORY OF PRESENT ILLNESS: Sandra Schmitz is an 78 year old female with a past history of severe nonischemic cardiomyopathy with an ejection fraction of 23% status post CUT PLUG PACKER-D in July 2023, hypertension and factor V Leiden mutation along with hypothyroidism who presents today for follow-up. She has been doing well overall with some good days and bad days but continues to perform many of her activities although with some limitations of shortness of breath. Denies any syncope or near syncope or ICD shocks. PAST MEDICAL HISTORY Diagnosis Date Acute acalculous cholecystitis 05/30/2020 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 09/22/2020 Acute on chronic systolic CHF (congestive heart failure) ([facility]) 05/03/2020 Aspiration pneumonia ([facility]) 05/30/2020 Chest pain 05/03/2020 Chest pressure 01/23/2013 Chronic diastolic congestive heart failure ([facility]) 02/14/2021 Clostridium difficile diarrhea 09/28/2020 Complete uterovaginal prolapse Cystocele, midline Essential hypertension 06/14/2020 Homozygous Factor V Leiden mutation ([facility]) 05/03/2020 Hypothyroidism IBS (irritable bowel syndrome) 01/23/2013 Palpitation CHRONIC Post-operative state 05/24/2020 Rectocele 05/25/2020 Shortness of breath 05/03/2020 Status post laparoscopic hysterectomy 05/30/2020 Tubular adenoma of colon 12/09/2020 Uterine prolapse 05/03/2020 PAST SURGICAL HISTORY Procedure Laterality Date COLONOSCOPY 01/07/2015 COLONOSCOPY 12/05/2021 repeat in 5 years COLONOSCOPY GEN ANES 12/06/2009 X3 LAST ONE IN 2009 EGD 11/08/2012 EGD 12/05/2021 INSERT/REPL DEFIB LEAD/GENER OTHR 07/2023 w/ Pacemaker PAST SURGICAL HISTORY OF 05/14/1999 left foot bunionectomy w/screws PAST SURGICAL HISTORY OF 05/14/1981 ectopic w/tube removal PAST SURGICAL HISTORY OF 2009 CYST REMOVED FROM UTERUS PAST SURGICAL HISTORY OF 05/24/2020 TVH, partial colpectomy, anterior colporrhaphy, Dennis transobturator midurethral sling, cystourethroscopy, rectocele repair with perineorrhaphy, laparoscopic lysis of adhesions and excision of bilateral adnexal structures PAST SURGICAL HISTORY OF 09/07/2020 Laparoscopic cholecystectomy with intraoperative cholangiograms. Dr. Ragsdale SOCIAL HISTORY Social History Tobacco Use Smoking status: Former Current packs/day: 0.00 Types: Cigarettes Quit date: 10/22/2002 Years since quittin.3 Smokeless tobacco: Never Vaping Use Vaping status: Never Used Substance Use Topics Alcohol use: No Drug use: No FAMILY HISTORY Problem Relation Age of Onset (more content not included)...[facility]09-26-2024 History of Present illness Narrative* Angel Castro, DO - 02/07/2024 2:02 PM EDT Images from the original note were not included. [facility] [place] [facility] Department of Cardiovascular Medicine SECTION OF [facility] OUTPATIENT VISIT DATE February 07, 2024 OUTPATIENT VISIT TYPE ESTABLISHED PATIENT Name: Sandra Schmitz : 1945 Date: February 07, 2024 PRIMARY CARE PHYSICIAN: Mandeep Houser [address] [place] [address] REFERRING PHYSICIAN: No referring provider defined for this encounter. CHIEF COMPLAINT: Patient presents with: CARD Follow Up 3 Month: PMH: non-ischemic CM, HTN, Hypothyroidism, LBBB s/p CUT PLUG PACKER-D IMPRESSION / PLAN: Severe nonischemic cardiomyopathy status post CUT PLUG PACKER-D in July 2023. - [facility] 10/2021: mod LAD, D1 prox 40%, mild RCA disease - GDMT: Unable to tolerate Jardiance and Entresto, continue losartan 40 mg daily and metoprolol ER 25 mg daily and unable to tolerate higher doses. We discussed carvedilol versus metoprolol and will continue metoprolol for now. Lasix 20 mg daily and discussed increasing doses if she has any significant weight gain or shortness of breath or increasing abdominal girth. - s/p CUT PLUG PACKER-D 07/16/23 at [facility] - Follows with advanced heart failure, - Follows with Dr. Kitty DIAZ and continue follow-up in the device clinic Left bundle branch block - s/p CUT PLUG PACKER-D 07/16/23 at [facility] - Follows with EPDr. [place] Nonobstructive coronary artery disease - [facility] 10/2021: mod LAD, D1 prox 40%, mild RCA disease - Pharm MPI stress 07/11/23: No inducible ischemia or scar - Patient appears compensated from cardiac standpoint - Continue ASA and BB as currently ordered - FLP - Pravastatin vs PCSK9i vs bempedoic acid Valvular heart disease - Echo 06/2023: - Moderate (1-2+) MR - Mild (1+) TR - Mild (1+) AI - Emphasis on afterload reduction - Annual echocardiogram monitoring Mixed hyperlipidemia - Currently on no lipid-lowering agents - Myalgias with Atorvastatin and Rosuvastatin - Chest pressure with Zetia - Last lipid panel 07/2022 with LDL 137 - Normal LFTs 07/2023 Follow Up Instructions Return in about 6 months (around 08/06/2024) for Echo before next visit. ORDERS FOR TODAY'S VISIT: Office Visit on 02/07/24 ECHO HISTORY OF PRESENT ILLNESS: Sandra Schmitz is an 78 year old female with a past history of severe nonischemic cardiomyopathy with an ejection fraction of 23% status post CUT PLUG PACKER-D in July 2023, hypertension and factor V Leiden mutation along with hypothyroidism who presents today for follow-up. She has been doing well overall with some good days and bad days but continues to perform many of her activities although with some limitations of shortness of breath. Denies any syncope or near syncope or ICD shocks. PAST MEDICAL HISTORY Diagnosis Date Acute acalculous cholecystitis 05/30/2020 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 09/22/2020 Acute on chronic systolic CHF (congestive heart failure) ([facility]) 05/03/2020 Aspiration pneumonia ([facility]) 05/30/2020 Chest pain 05/03/2020 Chest pressure 01/23/2013 Chronic diastolic congestive heart failure ([facility]) 02/14/2021 Clostridium difficile diarrhea 09/28/2020 Complete uterovaginal prolapse Cystocele, midline Essential hypertension 06/14/2020 Homozygous Factor V Leiden mutation ([facility]) 05/03/2020 Hypothyroidism IBS (irritable bowel syndrome) 01/23/2013 Palpitation CHRONIC Post-operative state 05/24/2020 Rectocele 05/25/2020 Shortness of breath 05/03/2020 Status post laparoscopic hysterectomy 05/30/2020 Tubular adenoma of colon 12/09/2020 Uterine prolapse 05/03/2020 PAST SURGICAL HISTORY Procedure Laterality Date COLONOSCOPY 01/07/2015 COLONOSCOPY 12/05/2021 repeat in 5 years COLONOSCOPY GEN ANES 12/06/2009 X3 LAST ONE IN 2009 EGD 11/08/2012 EGD 12/05/2021 INSERT/REPL DEFIB LEAD/GENER OTHR 07/2023 w/ Pacemaker PAST SURGICAL HISTORY OF 05/14/1999 left foot bunionectomy w/screws PAST SURGICAL HISTORY OF 05/14/1981 ectopic w/tube removal PAST SURGICAL HISTORY OF 2009 CYST REMOVED FROM UTERUS PAST SURGICAL HISTORY OF 05/24/2020 TVH, partial colpectomy, anterior colporrhaphy, Dennis transobturator midurethral sling, cystourethroscopy, rectocele repair with perineorrhaphy, laparoscopic lysis of adhesions and excision of bilateral adnexal structures PAST SURGICAL HISTORY OF 09/07/2020 Laparoscopic cholecystectomy with intraoperative cholangiograms. Dr. Ragsdale SOCIAL HISTORY Social History Tobacco Use Smoking status: Former Current packs/day: 0.00 Types: Cigarettes Quit date: 10/22/2002 Years since quittin.3 Smokeless tobacco: Never Vaping Use Vaping status: Never Used Substance Use Topics Alcohol use: No Drug use: No FAMILY HISTORY Problem Relation Age of Onset Blood Disease Mother Coronary Artery Disease Mother Cancer Mother lung Blood Disease Father Coronary Artery Disease Father Heart Father pacemaker Diabetes Father Breast Cancer Sister younger sis. COPD Brother Hypertension Brother Heart disease Brother Coronary Artery Disease Maternal Grandmother Ischemic Heart Disease Maternal Grandfather Coronary Artery Disease Maternal Grandfather Coronary Artery Disease Daughter ALLERGIES: ALLERGIES Allergen Reactions Emilio Inhibitors Intolerance Short of breath, symptoms of heart failure Beta-Blockers (Beta* Intolerance Short of breath, symptoms of heart failure Augmentin [Amoxicil* GI Upset Codeine Mental Status Change Patient felt like she was made out of lead Entresto [Sacubitri* Intolerance Lipitor [Atorvastat* Myalgia Muscle aches Sulfa (Sulfonamide * Intolerance Amlodipine Intolerance lightheaded MEDICATIONS: aluminum-magnesium hydroxide-simethicone 200-200-20 mg/5 mL suspension Take 30 mL by mouth every 6 hours as needed. dicyclomine (BENTYL) 10 mg capsule Take 1 capsule by mouth three times a day as needed (abdominal pain) for up to 20 doses. levothyroxine (LEVOXYL) 100 mcg tablet Take 1 tablet by mouth daily before breakfast. losartan (COZAAR) 25 mg tablet Take 1 tablet by mouth once daily. furosemide (LASIX) 20 mg tablet Take 1 tablet by mouth once daily. metoprolol succinate ER (TOPROL XL) 25 mg 24 hr tablet Take 1 tablet by mouth daily at bedtime. acetaminophen (TYLENOL) 500 mg tablet Take 2 tablets by mouth every 8 hours as needed for pain. cyanocobalamin (VITAMIN B-12) 1,000 mcg tab Take 1 tablet by mouth once daily. Cholecalciferol, Vitamin D3, 50 mcg (2,000 unit) cap Take 2 capsules by mouth once daily. aspirin, enteric coated (ECOTRIN LOW STRENGTH) 81 mg EC tablet Take 1 tablet by mouth once daily. REVIEW OF SYSTEMS: GENERAL: Negative for: Weight loss or gain, Fever or Chills NECK: Negative for: Swelling, Pain, Stiffness RESPIRATORY: Negative for: Cough, Blood in Sputum GASTROINTESTINAL: Negative for: Trouble swallowing, Heartburn, Change in bowel habits, Blood in stool, Dark black stools MUSCULOSKELETAL: Negative for: Severe Muscle or joint pain, Stiffness , Joint swelling NEUROLOGIC/PSYCHIATRIC: Negative for: Paralysis, Numbness, Tingling, Tremor SKIN: Negative for: Rashes, Itching HEMATOLOGICAL/LYMPHATIC: Negative for: Easy bruising , Easy bleeding ENDOCRINE: Negative for: Heat or cold intolerance, Excessive sweating, Frequent urination All other review of systems, per history of present illness. PHYSICAL EXAMINATION: BP 132/78 Pulse 83 Wt 89.2 kg (196 lb 10.4 oz) SpO2 95% BMI 34.84 kg/m Last 2 Encounter Wt Readings: Date: Wt: 01/15/2024 88.2 kg (194 lb 7.1 oz) 11/15/2023 87.7 kg (193 lb 5.5 oz) General: Well appearing, in no acute distress. Skin: No clubbing, no cyanosis. Eyes: Extra ocular movements intact Oropharynx: No gross abnormalities Neck: No jugular venous distention, no carotid bruits, carotids have a normal upstroke, no palpablethyromegaly. Lungs: Clear to auscultation bilaterally, no wheezing or rhonchi. Heart: Regular rhythm, PMI not displaced, S1, S2, no S3, no S4, no murmur. Abdomen: Soft, nontender, bowel sounds normal, no palpable organomegaly, no bruits. Extremities: No peripheral edema . +2 distal pulses bilaterally. Neuro: Oriented to person, place and time, alert, cooperative. CARDIOVASCULAR MEDICINE TESTING: I have personally reviewed No Cardiovascular testing perfomed today. Angel Castro DO, [facility] Staff [employer] [facility] Dept. of Cardiovascular Medicine Heart, Vascular and Thoracic [place], [facility] This document was generated using the assistance of voice recognition software. If there are any errors of spelling, grammar, syntax or meaning, please feel free to contact me directly at anytime. documented in this encounterK[facility]24 NoteHNO ID: [id number] Author: MANDEEP HOUSER DO Service: ? Author Type: Physician Type: Progress Notes Filed: 01/29/2024 13:04 Note Text: CC: Sandra Schmitz is a 78 year old female who presents to the office for OMT HPI: Acute on chronic back pain, started yesterday with significant mid to lower back pain. Has been up doing a lot around her home. Otherwise doesn't know what started or triggered her symptoms, no new bowel or bladder changes. Pain is worse when moving from sitting to standing or with standing or walking. No trauma that she is aware of. Pain is severe, has been taking tylenol and using ice and heating pad without relief of symptoms. She is not able to take NSAIDs. Has been doing a lot of new exercise with cardiac rehab which has been held since her back pain flare up. Had improvements after her OMT PAST MEDICAL HISTORY Diagnosis Date Acute acalculous cholecystitis 05/30/2020 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 09/22/2020 Acute on chronic systolic CHF (congestive heart failure) ([facility]) 05/03/2020 Aspiration pneumonia ([facility]) 05/30/2020 Chest pain 05/03/2020 Chest pressure 01/23/2013 Chronic diastolic congestive heart failure ([facility]) 02/14/2021 Clostridium difficile diarrhea 09/28/2020 Complete uterovaginal prolapse Cystocele, midline Essential hypertension 06/14/2020 Homozygous Factor V Leiden mutation ([facility]) 05/03/2020 Hypothyroidism IBS (irritable bowel syndrome) 01/23/2013 Palpitation CHRONIC Post-operative state 05/24/2020 Rectocele 05/25/2020 Shortness of breath 05/03/2020 Status post laparoscopic hysterectomy 05/30/2020 Tubular adenoma of colon 12/09/2020 Uterine prolapse 05/03/2020 PAST SURGICAL HISTORY Procedure Laterality Date COLONOSCOPY 01/07/2015 COLONOSCOPY 12/05/2021 repeat in 5 years COLONOSCOPY GEN ANES 12/06/2009 X3 LAST ONE IN 2009 EGD 11/08/2012 EGD 12/05/2021 PAST SURGICAL HISTORY OF 05/14/1999 left foot bunionectomy w/screws PAST SURGICAL HISTORY OF 05/14/1981 ectopic w/tube removal PAST SURGICAL HISTORY OF 2009 CYST REMOVED FROM UTERUS PAST SURGICAL HISTORY OF 05/24/2020 TVH, partial colpectomy, anterior colporrhaphy, Dennis transobturator midurethral sling, cystourethroscopy, rectocele repair with perineorrhaphy, laparoscopic lysis of adhesions and excision of bilateral adnexal structures PAST SURGICAL HISTORY OF 09/07/2020 Laparoscopic cholecystectomy with intraoperative cholangiograms. Dr. Ragsdale Current Outpatient Medications Medication Sig aluminum-magnesium hydroxide-simethicone 200-200-20 mg/5 mL suspension Take 30 mL by mouth every 6 hours as needed. (Patient not taking: Reported on 01/15/2024) dicyclomine (BENTYL) 10 mg capsule Take 1 capsule by mouth three times a day as needed (abdominal pain) for up to 20 doses. levothyroxine (LEVOXYL) 100 mcg tablet Take 1 tablet by mouth daily before breakfast. losartan (COZAAR) 25 mg tablet Take 1 tablet by mouth once daily. furosemide (LASIX) 20 mg tablet Take 1 tablet by mouth once daily. metoprolol succinate ER (TOPROL XL) 25 mg 24 hr tablet Take 1 tablet by mouth daily at bedtime. acetaminophen (TYLENOL) 500 mg tablet Take 2 tablets by mouth every 8 hours as needed for pain. cyanocobalamin (VITAMIN B-12) 1,000 mcg tab Take 1 tablet by mouth once daily. Cholecalciferol, Vitamin D3, 50 mcg (2,000 unit) cap Take 2 capsules by mouth once daily. aspirin, enteric coated (ECOTRIN LOW STRENGTH) 81 mg EC tablet Take 1 tablet by mouth once daily. No current facility-administered medications for this visit. ALLERGIES Allergen Reactions Emilio Inhibitors Intolerance Short of breath, symptoms of heart failure Beta-Blockers (Beta* Intolerance Short of breath, symptoms of heart failure Augmentin [Amoxicil* GI Upset Codeine Mental Status Change Patient felt like she was made out of lead Lipitor [Atorvastat* Myalgia Muscle aches Sulfa (Sulfonamide * Intolerance Amlodipine Intolerance lightheaded Social History Tobacco Use Smoking status: Former Current packs/day: 0.00 Types: Cigarettes Quit date: 10/22/2002 Years since quittin.2 Smokeless tobacco: Never Vaping Use Vaping status: Never Used Substance Use Topics Alcohol use: No Drug use: No ROS: See HPI PE: There were no vitals taken for this visit. Gen: AANDOX3, NAD HEENT: PERRLA, EOMs intact b/l, nares without drainage, pharynx without erythema, exudate, lesions, or drainage. Uvula midline. Neck: supple, No cervical LAD, no thyromegaly, no carotid bruits, suboccipital fullness right head, C3-6NRrSBr Right 1st rib inhalation dysfunction T3-9ERrSBl L1-2NRrSBr Left anterior pelvis MS: arthritis changes, antalgic gait No edema. No spinal TTP but with diffuse myalgias Thoracolumbar scoliosis Intact neurovascular tone of arms and legs ASSESSMENT/PLAN: 1. Hypothyroidism, acquired - ICD9: 244.9, ICD10: E03.9 (primary diagnosis) - (more content not included)...[facility]09-17-2024 History of Present illness Narrative* Mandeep Houser, - 01/29/2024 12:53 PM EDT CC: Sandra Schmitz is a 78 year old female who presents to the office for OMT HPI: Acute on chronic back pain, started yesterday with significant mid to lower back pain. Has been up doing a lot around her home. Otherwise doesn't know what started or triggered her symptoms, no new bowel or bladder changes. Pain is worse when moving from sitting to standing or with standing or walking. No trauma that she is aware of. Pain is severe, has been taking tylenol and using ice and heating pad without relief of symptoms. She is not able to take NSAIDs. Has been doing a lot of new exercise with cardiac rehab which has been held since her back pain flare up. Had improvements after her OMT PAST MEDICAL HISTORY Diagnosis Date Acute acalculous cholecystitis 05/30/2020 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 09/22/2020 Acute on chronic systolic CHF (congestive heart failure) ([facility]) 05/03/2020 Aspiration pneumonia ([facility]) 05/30/2020 Chest pain 05/03/2020 Chest pressure 01/23/2013 Chronic diastolic congestive heart failure ([facility]) 02/14/2021 Clostridium difficile diarrhea 09/28/2020 Complete uterovaginal prolapse Cystocele, midline Essential hypertension 06/14/2020 Homozygous Factor V Leiden mutation ([facility]) 05/03/2020 Hypothyroidism IBS (irritable bowel syndrome) 01/23/2013 Palpitation CHRONIC Post-operative state 05/24/2020 Rectocele 05/25/2020 Shortness of breath 05/03/2020 Status post laparoscopic hysterectomy 05/30/2020 Tubular adenoma of colon 12/09/2020 Uterine prolapse 05/03/2020 PAST SURGICAL HISTORY Procedure Laterality Date COLONOSCOPY 01/07/2015 COLONOSCOPY 12/05/2021 repeat in 5 years COLONOSCOPY GEN ANES 12/06/2009 X3 LAST ONE IN 2009 EGD 11/08/2012 EGD 12/05/2021 PAST SURGICAL HISTORY OF 05/14/1999 left foot bunionectomy w/screws PAST SURGICAL HISTORY OF 05/14/1981 ectopic w/tube removal PAST SURGICAL HISTORY OF 2009 CYST REMOVED FROM UTERUS PAST SURGICAL HISTORY OF 05/24/2020 TVH, partial colpectomy, anterior colporrhaphy, Dennis transobturator midurethral sling, cystourethroscopy, rectocele repair with perineorrhaphy, laparoscopic lysis of adhesions and excision of bilateral adnexal structures PAST SURGICAL HISTORY OF 09/07/2020 Laparoscopic cholecystectomy with intraoperative cholangiograms. Dr. Ragsdale Current Outpatient Medications Medication Sig aluminum-magnesium hydroxide-simethicone 200-200-20 mg/5 mL suspension Take 30 mL by mouth every 6 hours as needed. (Patient not taking: Reported on 01/15/2024) dicyclomine (BENTYL) 10 mg capsule Take 1 capsule by mouth three times a day as needed (abdominal pain) for up to 20 doses. levothyroxine (LEVOXYL) 100 mcg tablet Take 1 tablet by mouth daily before breakfast. losartan (COZAAR) 25 mg tablet Take 1 tablet by mouth once daily. furosemide (LASIX) 20 mg tablet Take 1 tablet by mouth once daily. metoprolol succinate ER (TOPROL XL) 25 mg 24 hr tablet Take 1 tablet by mouth daily at bedtime. acetaminophen (TYLENOL) 500 mg tablet Take 2 tablets by mouth every 8 hours as needed for pain. cyanocobalamin (VITAMIN B-12) 1,000 mcg tab Take 1 tablet by mouth once daily. Cholecalciferol, Vitamin D3, 50 mcg (2,000 unit) cap Take 2 capsules by mouth once daily. aspirin, enteric coated (ECOTRIN LOW STRENGTH) 81 mg EC tablet Take 1 tablet by mouth once daily. No current facility-administered medications for this visit. ALLERGIES Allergen Reactions Emilio Inhibitors Intolerance Short of breath, symptoms of heart failure Beta-Blockers (Beta* Intolerance Short of breath, symptoms of heart failure Augmentin [Amoxicil* GI Upset Codeine Mental Status Change Patient felt like she was made out of lead Lipitor [Atorvastat* Myalgia Muscle aches Sulfa (Sulfonamide * Intolerance Amlodipine Intolerance lightheaded Social History Tobacco Use Smoking status: Former Current packs/day: 0.00 Types: Cigarettes Quit date: 10/22/2002 Years since quittin.2 Smokeless tobacco: Never Vaping Use Vaping status: Never Used Substance Use Topics Alcohol use: No Drug use: No ROS: See HPI PE: There were no vitals taken for this visit. Gen: A&OX3, NAD HEENT: PERRLA, EOMs intact b/l, nares without drainage, pharynx without erythema, exudate, lesions,or drainage. Uvula midline. Neck: supple, No cervical LAD, no thyromegaly, no carotid bruits, suboccipital fullness right head,C3-6NRrSBr Right 1st rib inhalation dysfunction T3-9ERrSBl L1-2NRrSBr Left anterior pelvis MS: arthritis changes, antalgic gait No edema. No spinal TTP but with diffuse myalgias Thoracolumbar scoliosis Intact neurovascular tone of arms and legs ASSESSMENT/PLAN: 1. Hypothyroidism, acquired - ICD9: 244.9, ICD10: E03.9 (primary diagnosis) - Instructed patient on importance of taking on an empty stomach either first thing in the morning or at bedtime. - check TSH, free T4, and Free T3 today - continue current dose of Synthroid - THYROID STIMULATING HORMONE - T4 FREE/FREE THYROXINE - T3, FREE 2. Chronic bilateral thoracic back pain - ICD9: 724.1, 338.29, ICD10: M54.6, G89.29 Chronic low back pain - Ice for localized tenderness - Warm moist heat for 20 min three times a day OMT as below 3. Somatic dysfunction of spine, thoracic - ICD9: 739.2, ICD10: M99.02 OMT: Discussed risks, benefits, alternatives, and potential SEs of treatment. Patient wished to proceed with OMT. OMT was performed to the cervical region, head region, lumbar region, thoracic region, and ribs including soft tissue, functional methods. Patient tolerated treatment well with good release, increase ROM, and decrease in pain, without complications. Instructed patient to drink plenty of water. Gentle stretches at home. 4. Somatic dysfunction of spine, cervical - ICD9: 739.1, ICD10: M99.01 OMT: Discussed risks, benefits, alternatives, and potential SEs of treatment. Patient wished to proceed with OMT. OMT was performed to the cervical region, head region, lumbar region, thoracic region, and ribs including soft tissue, functional methods. Patient tolerated treatment well with good release, increase ROM, and decrease in pain, without complications. Instructed patient to drink plenty of water. Gentle stretches at home. 5. Somatic dysfunction of rib - ICD9: 739.8, ICD10: M99.08 OMT: Discussed risks, benefits, alternatives, and potential SEs of treatment. Patient wished to proceed with OMT. OMT was performed to the cervical region, head region, lumbar region, thoracic region, and ribs including soft tissue, functional methods. Patient tolerated treatment well with good release, increase ROM, and decrease in pain, without complications. Instructed patient to drink plenty of water. Gentle stretches at home. 6. Somatic dysfunction of spine, lumbar - ICD9: 739.3, ICD10: M99.03 OMT: Discussed risks, benefits, alternatives, and potential SEs of treatment. Patient wished to proceed with OMT. OMT was performed to the cervical region, head region, lumbar region, thoracic region, and ribs including soft tissue, functional methods. Patient tolerated treatment well with good release, increase ROM, and decrease in pain, without complications. Instructed patient to drink plenty of water. Gentle stretches at home. 7. Somatic dysfunction of head region - ICD9: 739.0, ICD10: M99.00 OMT: Discussed risks, benefits, alternatives, and potential SEs of treatment. Patient wished to proceed with OMT. OMT was performed to the cervical region, head region, lumbar region, thoracic region, and ribs including soft tissue, functional methods. Patient tolerated treatment well with good release, increase ROM, and decrease in pain, without complications. Instructed patient to drink plenty of water. Gentle stretches at home. Mandeep Houser DO Return if no improvement. Follow up with Mandeep Houser DO. To ER if develops chest pain, shortness of breat. Discussed risks, benefits, alternatives, and potential side effects of medications. Patient/Guardian expressed understanding and agreed with the plan. See patient instructions. Mandeep Houser DO [address] [place] [address] documented in this encounterK[facility]24 NoteHNO ID: [id number] Author: PILI WELLS MD Service: ? Author Type: Physician Type: Progress Notes Filed: 03/07/2024 19:04 Note Text: [facility] SECTION OF HEART FAILURE and CARDIAC TRANSPLANT MEDICINE [facility] OUTPATIENT VISIT DATE January 15, 2024 OUTPATIENT VISIT TYPE Established PRIMARY CARE PHYSICIAN: Mandeep Houser [address] [place] [address] CHIEF COMPLAINT: Follow Up HISTORY OF PRESENT ILLNESS: Sandra Schmitz is a 78 year old female with a medical history that includes non-ischemic CM, HTN, Hypothyroidism, LBBB s/p CUT PLUG PACKER-D who is referred to me for heart failure management. Sandra Schmitz was initially diagnosed with non-ischemic CM ~ 4 yrs ago and was doing well on losartan and metoprolol. She had progressive sxs of dyspnea on exertion, therefore she was started on entresto and farxiga and her sxs persisted and she was admitted locally in [place] and then transferred to for CUT PLUG PACKER consideration. Interval History: Sandra Schmitz was last seen in this clinic on 10/02/23 via video visit. Since the last visit Sandra Schmitz, was admitted to the hospital with pre-syncope in the setting of abd spasms and have a bowel movement and also had an MAYCOL. She was seen by GI. On follow up today, she reports having ongoing abdominal issues, and intermittent chest discomfort near pacer, no edema, no orthopnea, no PND, no lightheadedness/dizziness since admission. Reports ongoing back pain and rib issues and scoliosis. Weight on home scale: 188-190 lbs. Weight stable here. Activity/Exercise: continuing to stay active doing things. Home BP: not regularly. CV Problem List/Medical History: Non- Ischemic Cardiomyopathy/Heart Failure with reduced ejection fraction: Echo 06/2023: LVEF 26%, LVEDd 5.8cm, RV wnl Echo 09/2022: LVEF 30%, LVEDd 4.6cm, RV wnl Echo 02/2022: LVEF 30%, RV wnl Echo 04/2020: LVEF 40%, LVEdd 4.8cm. LBBB: chronic. S/p CUT PLUG PACKER 07/2023 Non-obstructive CAD: stable, ischemic testing recently with no ischemia or infarction. 06/2023 Nuc SPECT: no ischemia or infarction. 10/2021 Cath: mod LAD, D1 prox 40%, mild RCA disease dominant, EF 35%. Hx of HTN: BP have been stable PAST MEDICAL HISTORY 05/30/2020: Acute acalculous cholecystitis 09/22/2020: 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 05/03/2020: Acute on chronic systolic CHF (congestive heart failure) ([facility]) 05/30/2020: Aspiration pneumonia ([facility]) 05/03/2020: Chest pain 01/23/2013: Chest pressure 02/14/2021: Chronic diastolic congestive heart failure ([facility]) 09/28/2020: Clostridium difficile diarrhea No date: Complete uterovaginal prolapse No date: Cystocele, midline 06/14/2020: Essential hypertension 05/03/2020: Homozygous Factor V Leiden mutation ([facility]) No date: Hypothyroidism 01/23/2013: IBS (irritable bowel syndrome) No date: Palpitation Comment: CHRONIC 05/24/2020: Post-operative state 05/25/2020: Rectocele 05/03/2020: Shortness of breath 05/30/2020: Status post laparoscopic hysterectomy 12/09/2020: Tubular adenoma of colon 05/03/2020: Uterine prolapse PAST SURGICAL HISTORY 01/07/2015: COLONOSCOPY 12/05/2021: COLONOSCOPY Comment: repeat in 5 years 12/06/2009: COLONOSCOPY GEN ANES Comment: X3 LAST ONE IN 200911/08/2012: EGD 12/05/2021: EGD 05/14/1999: PAST SURGICAL HISTORY OF Comment: left foot bunionectomy w/screws 05/14/1981: PAST SURGICAL HISTORY OF Comment: ectopic w/tube removal 2009: PAST SURGICAL HISTORY OF Comment: CYST REMOVED FROM UTERUS 05/24/2020: PAST SURGICAL HISTORY OF Comment: TVH, partial colpectomy, anterior colporrhaphy, Dennis transobturator midurethral sling, cystourethroscopy, rectocele repair with perineorrhaphy, laparoscopic lysis of adhesions and excision of bilateral adnexal structures 09/07/2020: PAST SURGICAL HISTORY OF Comment: Laparoscopic cholecystectomy with intraoperative cholangiograms. Dr. Ragsdale SOCIAL HISTORY Social History Tobacco Use Smoking status: Former Current packs/day: 0.00 Types: Cigarettes Quit date: 10/22/2002 Years since quittin.2 Smokeless tobacco: Never Vaping Use Vaping status: Never Used Substance Use Topics Alcohol use: No Drug use: No FAMILY HISTORY Problem Relation Age of Onset Blood Disease Mother Coronary Artery Disease Mother Cancer Mother lung Blood Disease Father Coronary Artery Disease Father Heart Father pacemaker Diabetes Father Breast Cancer Sister younger sis. COPD Brother Hypertension Brother Heart disease Brother Coronary Artery Disease Maternal Grandmother Ischemic Heart Disease Maternal Grandfather Coronary Artery Disease Maternal Grandfather Coronary Artery Disease Daughter ALLERGIES: ALLERGIES Allergen Reactions Emilio Inhibitors Intolerance Short of breath, symptoms of heart failure Beta (more content not included)...[facility]09-03-2024 History of Present illness Narrative* Pili Wells MD - 01/15/2024 1:13 PM EDT Images from the original note were not included. [facility] SECTION OF HEART FAILURE and CARDIAC TRANSPLANT MEDICINE [facility] OUTPATIENT VISIT DATE January 15, 2024 OUTPATIENT VISIT TYPE Established PRIMARY CARE PHYSICIAN: Mandeep Houser [address] [place] [address] CHIEF COMPLAINT: Follow Up HISTORY OF PRESENT ILLNESS: Sandra Schmitz is a 78 year old female with a medical history that includes non-ischemic CM, HTN, Hypothyroidism, LBBB s/p CUT PLUG PACKER-D who [place]. Sandra Schmitz was initially diagnosed with non-ischemic CM ~ 4 yrs ago and was doing well on losartan and metoprolol. She had progressive sxs of dyspnea on exertion, therefore she was started on entresto and farxiga and her sxs persisted and she was admitted locally in [place] and then transferredto for CUT PLUG PACKER consideration. Interval History: Sandra Schmitz was last seen in this clinic on 10/02/23 via video visit. Since the last visit Sandra Schmitz, was admitted to the hospital with pre-syncope in the setting of abd spasms and have a bowel movement and also had an MAYCOL. She was seen by GI. On follow up today, she reports having ongoingabdominal issues, and intermittent chest discomfort near pacer, no edema, no orthopnea, no PND, no lightheadedness/dizziness since admission. Reports ongoing back pain and rib issues and scoliosis. Weight on home scale: 188-190 lbs. Weight stable here. Activity/Exercise: continuing to stay active doing things. Home BP: not regularly. CV Problem List/Medical History: Non- Ischemic Cardiomyopathy/Heart Failure with reduced ejection fraction: Echo 06/2023: LVEF 26%, LVEDd 5.8cm, RV wnl Echo 09/2022: LVEF 30%, LVEDd 4.6cm, RV wnl Echo 02/2022: LVEF 30%, RV wnl Echo 04/2020: LVEF 40%, LVEdd 4.8cm. LBBB: chronic. S/p CUT PLUG PACKER 07/2023 Non-obstructive CAD: stable, ischemic testing recently with no ischemia or infarction. 06/2023 Nuc SPECT: no ischemia or infarction. 10/2021 Cath: mod LAD, D1 prox 40%, mild RCA disease dominant, EF 35%. Hx of HTN: BP have been stable PAST MEDICAL HISTORY 05/30/2020: Acute acalculous cholecystitis 09/22/2020: 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 05/03/2020: Acute on chronic systolic CHF (congestive heart failure) ([facility]) 05/30/2020: Aspiration pneumonia ([facility]) 05/03/2020: Chest pain 01/23/2013: Chest pressure 02/14/2021: Chronic diastolic congestive heart failure ([facility]) 09/28/2020: Clostridium difficile diarrhea No date: Complete uterovaginal prolapse No date: Cystocele, midline 06/14/2020: Essential hypertension 05/03/2020: Homozygous Factor V Leiden mutation ([facility]) No date: Hypothyroidism 01/23/2013: IBS (irritable bowel syndrome) No date: Palpitation Comment: CHRONIC 05/24/2020: Post-operative state 05/25/2020: Rectocele 05/03/2020: Shortness of breath 05/30/2020: Status post laparoscopic hysterectomy 12/09/2020: Tubular adenoma of colon 05/03/2020: Uterine prolapse PAST SURGICAL HISTORY 01/07/2015: COLONOSCOPY 12/05/2021: COLONOSCOPY Comment: repeat in 5 years 12/06/2009: COLONOSCOPY GEN ANES Comment: X3 LAST ONE IN 200911/08/2012: EGD 12/05/2021: EGD 05/14/1999: PAST SURGICAL HISTORY OF Comment: left foot bunionectomy w/screws 05/14/1981: PAST SURGICAL HISTORY OF Comment: ectopic w/tube removal 2009: PAST SURGICAL HISTORY OF Comment: CYST REMOVED FROM UTERUS 05/24/2020: PAST SURGICAL HISTORY OF Comment: TVH, partial colpectomy, anterior colporrhaphy, Dennis transobturator midurethral sling, cystourethroscopy, rectocele repair with perineorrhaphy, laparoscopic lysis of adhesions and excision of bilateral adnexal structures 09/07/2020: PAST SURGICAL HISTORY OF Comment: Laparoscopic cholecystectomy with intraoperative cholangiograms. Dr. Ragsdale SOCIAL HISTORY Social History Tobacco Use Smoking status: Former Current packs/day: 0.00 Types: Cigarettes Quit date: 10/22/2002 Years since quittin.2 Smokeless tobacco: Never Vaping Use Vaping status: Never Used Substance Use Topics Alcohol use: No Drug use: No FAMILY HISTORY Problem Relation Age of Onset Blood Disease Mother Coronary Artery Disease Mother Cancer Mother lung Blood Disease Father Coronary Artery Disease Father Heart Father pacemaker Diabetes Father Breast Cancer Sister younger sis. COPD Brother Hypertension Brother Heart disease Brother Coronary Artery Disease Maternal Grandmother Ischemic Heart Disease Maternal Grandfather Coronary Artery Disease Maternal Grandfather Coronary Artery Disease Daughter ALLERGIES: ALLERGIES Allergen Reactions Emilio Inhibitors Intolerance Short of breath, symptoms of heart failure Beta-Blockers (Beta* Intolerance Short of breath, symptoms of heart failure Augmentin [Amoxicil* GI Upset Codeine Mental Status Change Patient felt like she was made out of lead Lipitor [Atorvastat* Myalgia Muscle aches Sulfa (Sulfonamide * Intolerance Amlodipine Intolerance lightheaded CURRENT MEDICATIONS: dicyclomine (BENTYL) 10 mg capsule Take 1 capsule by mouth three times a day as needed (abdominal pain) for up to 20 doses. simethicone, chewable (MYLICON) 80 mg chewable tablet Take 2 tablets by mouth as directed. As needed after meals for pain /gas levothyroxine (LEVOXYL) 100 mcg tablet Take 1 tablet by mouth daily before breakfast. losartan (COZAAR) 25 mg tablet Take 1 tablet by mouth once daily. furosemide (LASIX) 20 mg tablet Take 1 tablet by mouth once daily. metoprolol succinate ER (TOPROL XL) 25 mg 24 hr tablet Take 1 tablet by mouth daily at bedtime. acetaminophen (TYLENOL) 500 mg tablet Take 2 tablets by mouth every 8 hours as needed for pain. cyanocobalamin (VITAMIN B-12) 1,000 mcg tab Take 1 tablet by mouth once daily. Cholecalciferol, Vitamin D3, 50 mcg (2,000 unit) cap Take 2 capsules by mouth once daily. aspirin, enteric coated (ECOTRIN LOW STRENGTH) 81 mg EC tablet Take 1 tablet by mouth once daily. aluminum-magnesium hydroxide-simethicone 200-200-20 mg/5 mL suspension Take 30 mL by mouth every 6 hours as needed. (Patient not taking: Reported on 01/15/2024) REVIEW OF SYSTEMS: 10 point review of systems completed and negative unless mentioned above. PATIENT ENTERED DATA: No data to display 12/09/2020 PHQ-9 Score 2 10/05/2016 01/25/2017 PROMIS Global Health - (T-Scores - the mean of general population = 50. Five points is a clinicallymeaningful difference.) Physical T-Score 44.9 44.9 47.7 47.7 Mental T-Score 53.3 53.3 50.8 50.8 Multiple values from one day are sorted in reverse-chronological order PHYSICAL EXAMINATION: BP 104/67 Pulse 65 Wt 194 lb 7.1 oz (88.2kg) SpO2 96[RA]% General: well developed, well nourished female in no acute distress. Neck: supple, no carotid bruits. JVD <6 cm H2O. Cardiac: Regular rate and rhythm. Normal S1 and S2. no S3 or S4. no murmurs or gallops. Lungs: Good inspiratory effort, breath sounds equal. Clear to auscultation bilaterally. No wheezing, rhonchi or rales. Abdominal: soft, nontender, non-distended. Normal bowel sounds. Extremities: Edema : none. Normal Gait. Pulses: normal radial and posterior tibial artery pulses. Normal capillary refill. Skin: Warm to touch. No clubbing or cyanosis. Neuro: awake, oriented with no focal neurological deficit. Psychiatric: appropriate mood and affect for her clinical situation. CARDIOVASCULAR MEDICINE TESTING: I personally reviewed the following testing. EKG (todau): Sinus rhythm with Echo (12/05/23): The left ventricle is severely dilated. Left ventricular systolic function is severely decreased. EF = 23 5% (2D biplane) Definity contrast used for endocardial border detection. Left ventricular diastolic function was not evaluated due to pacing. - The right ventricle is normal in size. Right ventricular systolic function is normal. - There are no significant valvular abnormalities. - There is mild (1+) mitral regurgitation. - There is trivial to mild aortic regurgitation. - There is moderate (2+) pulmonic valve regurgitation. - Estimated right ventricular systolic pressure is 30 mmHg consistent with normal pulmonary artery pressures. Estimated right atrial pressure is 8 mmHg based on IVC assessment. - There is evidence of intracardiac shunting as detected by agitated saline contrast. - Exam was compared with the prior echocardiographic exam performed on 07/12/23 prior EF 26%. LABS ALESSIO High Sensitivity 23 11/15/2023 ALESSIO High Sensitivity 25 11/15/2023 ALESSIO High Sensitivity 31 11/15/2023 Cholesterol, Total (mg/dL) Date Value 09/20/2023 206 12/22/2020 232 HDL Cholesterol (mg/dL) Date Value 09/20/2023 52 12/22/2020 48 LDL Cholesterol (mg/dL) Date Value 09/20/2023 120 12/22/2020 149 Triglyceride (mg/dL) Date Value 09/20/2023 172 12/22/2020 175 @RESUFAST)HBA1C)@ TSH 3.520 11/18/2023 T3 75 07/21/2022 Iron Date Value Ref Range Status 10/31/2023 51 41 - 186 ug/dL Final TIBC Date Value Ref Range Status 10/31/2023 321 232 - 386 ug/dL Final GDMT: - BB: toprol XL 25mg daily - ACEI/ARB/ARNI: losartan 25mg daily - MRA: no - per pt preference - SGLT2: unable to toelrate due to tingling/BADILLO - Vasodilators: no - Device: CUT PLUG PACKER-D - Cardiomems: no - Other: lasix 20mg daily IMPRESSION and PLAN/Recommendation In summary, Sandra Schmitz is a 78 year old being managed today for the following issues: 1. Non-ischemic Cardiomyopathy/chronic systolic heart failure: NYHA functional class IIb, Stage C heart failure, Clinical Class A - warm and euvolemic. Intolerant to many GDMT as above. Currently will continue. She reports symptomatic improvement post CUT PLUG PACKER. Echo 11/2023 reviewed - LVEF remains low, LV not as dilated, MR improved as well GDMT: as above Did cardiac rehab. Labs 11/2022 reviwed: K 4.0, Cr 0.96 Following with Gloria as well. 2. Non-obsctructive CAD: on aspirin and toprol as above On aspirin 81mg daily, not on stating - reports intolerance. Following with Dr. Castro. 3. LBBB s/p CUT PLUG PACKER-D Thank you for allowing me to participate in the care of your patient. I will continue to follow up with Sandra Schmitz in my heart failure clinic with plans to see her back in 9 months. In the interim do not hesitate to reach out to me with questions or concerns. I personally spent 42 minutes in total time involved in the management and care of this patient. Wediscussed natural history of disease, current treatment options, and future potential treatment options. We discussed diet, exercise, other non-medical management as above. Pili Wells MD [facility] [place] [address] Appointment: [phone] documented in this encounterK[facility]09-03-2024 Instructions* Patient Instructions* Pili Wells MD - 01/15/2024 12:43 PM EDT Thank you for your visit. It was great to see you today! PLEASE READ ALL THE INSTRUCTIONS Medication changes: none Blood tests: added on for today Referral to other specialties: Additional Testing: none Follow up Visit: 9 months Other instructions: Engage in 30 minutes of continuous exercise at least 4 days per week if you can tolerate Please take your blood pressures, heart rate, and weight daily. Please notify us via [employer] if your Systolic BP (top number) < 90 or > 150 consistently. Please record these values and bring them during your next clinic visit so we can adjust your medications appropriately. If blood work or testing is done at an outside facility please send us a message to clarify if we have received the labs. If you have not heard from us regarding lab work or follow up testing please send us a message to ensure that we have received the tests. If you notice a 3 lbs weight gain within 3 days, please call our office for further instructions. Limit the amount of salt intake to less than 2 grams (or 2000 mg) and fluid intake to less than 2 liters (~60 ounces) a day. Please notify if you have any change in medical conditions/new diagnosis/hospitalizations. Your medications may interact with new medication or new diagnosis. Please notify your providers tocheck/monitor for interractions Avoid NSAIDS- Ibuprofen, aleve, motrin inview of heart kidney injury risk Please send a [employer] message or call with any questions or concerns: Outpatient Number: [phone] Thank you, Pili Wells MD [facility] [place] [phone] documented in this encounterK[facility]08-29-2024 NoteHNO ID: [id number] Author: MANDEEP HOUSER, DO Service: ? Author Type: Physician Type: Progress Notes Filed: 01/10/2024 10:06 Note Text: CC: Sandra Schmitz is a 78 year old female who presents to the office for OMT HPI: Acute on chronic back pain, started yesterday with significant mid to lower back pain. Has been up doing a lot around her home. Otherwise doesn't know what started or triggered her symptoms, no new bowel or bladder changes. Pain is worse when moving from sitting to standing or with standing or walking. No trauma that she is aware of. Pain is severe, has been taking tylenol and using ice and heating pad without relief of symptoms. She is not able to take NSAIDs. Has been doing a lot of new exercise with cardiac rehab which has been held since her back pain flare up. Had improvements after her OMT PAST MEDICAL HISTORY 05/30/2020: Acute acalculous cholecystitis 09/22/2020: 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 05/03/2020: Acute on chronic systolic CHF (congestive heart failure) ([facility]) 05/30/2020: Aspiration pneumonia ([facility]) 05/03/2020: Chest pain 01/23/2013: Chest pressure 02/14/2021: Chronic diastolic congestive heart failure ([facility]) 09/28/2020: Clostridium difficile diarrhea No date: Complete uterovaginal prolapse No date: Cystocele, midline 06/14/2020: Essential hypertension 05/03/2020: Homozygous Factor V Leiden mutation ([facility]) No date: Hypothyroidism 01/23/2013: IBS (irritable bowel syndrome) No date: Palpitation Comment: CHRONIC 05/24/2020: Post-operative state 05/25/2020: Rectocele 05/03/2020: Shortness of breath 05/30/2020: Status post laparoscopic hysterectomy 12/09/2020: Tubular adenoma of colon 05/03/2020: Uterine prolapse PAST SURGICAL HISTORY 01/07/2015: COLONOSCOPY 12/05/2021: COLONOSCOPY Comment: repeat in 5 years 12/06/2009: COLONOSCOPY GEN ANES Comment: X3 LAST ONE IN 200911/08/2012: EGD 12/05/2021: EGD 05/14/1999: PAST SURGICAL HISTORY OF Comment: left foot bunionectomy w/screws 05/14/1981: PAST SURGICAL HISTORY OF Comment: ectopic w/tube removal 2009: PAST SURGICAL HISTORY OF Comment: CYST REMOVED FROM UTERUS 05/24/2020: PAST SURGICAL HISTORY OF Comment: TVH, partial colpectomy, anterior colporrhaphy, Dennis transobturator midurethral sling, cystourethroscopy, rectocele repair with perineorrhaphy, laparoscopic lysis of adhesions and excision of bilateral adnexal structures 09/07/2020: PAST SURGICAL HISTORY OF Comment: Laparoscopic cholecystectomy with intraoperative cholangiograms. Dr. Ragsdale Current Outpatient Medications Medication Sig aluminum-magnesium hydroxide-simethicone 200-200-20 mg/5 mL suspension Take 30 mL by mouth every 6 hours as needed. dicyclomine (BENTYL) 10 mg capsule Take 1 capsule by mouth three times a day as needed (abdominal pain) for up to 20 doses. simethicone, chewable (MYLICON) 80 mg chewable tablet Take 2 tablets by mouth as directed. As needed after meals for pain /gas levothyroxine (LEVOXYL) 100 mcg tablet Take 1 tablet by mouth daily before breakfast. losartan (COZAAR) 25 mg tablet Take 1 tablet by mouth once daily. furosemide (LASIX) 20 mg tablet Take 1 tablet by mouth once daily. metoprolol succinate ER (TOPROL XL) 25 mg 24 hr tablet Take 1 tablet by mouth daily at bedtime. acetaminophen (TYLENOL) 500 mg tablet Take 2 tablets by mouth every 8 hours as needed for pain. cyanocobalamin (VITAMIN B-12) 1,000 mcg tab Take 1 tablet by mouth once daily. Cholecalciferol, Vitamin D3, 50 mcg (2,000 unit) cap Take 2 capsules by mouth once daily. aspirin, enteric coated (ECOTRIN LOW STRENGTH) 81 mg EC tablet Take 1 tablet by mouth once daily. No current facility-administered medications for this visit. ALLERGIES Allergen Reactions Emilio Inhibitors Intolerance Short of breath, symptoms of heart failure Beta-Blockers (Beta* Intolerance Short of breath, symptoms of heart failure Augmentin [Amoxicil* GI Upset Codeine Mental Status Change Patient felt like she was made out of lead Lipitor [Atorvastat* Myalgia Muscle aches Sulfa (Sulfonamide * Intolerance Amlodipine Intolerance lightheaded Social History Tobacco Use Smoking status: Former Current packs/day: 0.00 Types: Cigarettes Quit date: 10/22/2002 Years since quittin.2 Smokeless tobacco: Never Vaping Use Vaping status: Never Used Substance Use Topics Alcohol use: No Drug use: No ROS: See HPI PE: There were no vitals taken for this visit. Gen: AANDOX3, she appears uncomfortable HEENT: PERRLA, EOMs intact b/l, nares without drainage, pharynx without erythema, exudate, lesions, or drainage. Uvula midline. Neck: supple, No cervical LAD, no thyromegaly, no carotid bruits, suboccipital fullness right head, C3-6NRrSBr Right 1st rib inhalation dysfunction T3-10ERrSBl L1-2NRrSBr Left anterior pelvis MS: arthritis changes, antalgic gait No edema. No sp (more content not included)...[facility]08-29-2024 History of Present illness Narrative* Mandeep Houser, DO - 01/10/2024 10:03 AM EDT CC: Sandra Schmitz is a 78 year old female who presents to the office for OMT HPI: Acute on chronic back pain, started yesterday with significant mid to lower back pain. Has been up doing a lot around her home. Otherwise doesn't know what started or triggered her symptoms, no new bowel or bladder changes. Pain is worse when moving from sitting to standing or with standing or walking. No trauma that she is aware of. Pain is severe, has been taking tylenol and using ice and heating pad without relief of symptoms. She is not able to take NSAIDs. Has been doing a lot of new exercise with cardiac rehab which has been held since her back pain flare up. Had improvements after her OMT PAST MEDICAL HISTORY 05/30/2020: Acute acalculous cholecystitis 09/22/2020: 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 05/03/2020: Acute on chronic systolic CHF (congestive heart failure) (HCC) 05/30/2020: Aspiration pneumonia ([facility]) 05/03/2020: Chest pain 01/23/2013: Chest pressure 02/14/2021: Chronic diastolic congestive heart failure (HCC) 09/28/2020: Clostridium difficile diarrhea No date: Complete uterovaginal prolapse No date: Cystocele, midline 06/14/2020: Essential hypertension 05/03/2020: Homozygous Factor V Leiden mutation (HCC) No date: Hypothyroidism 01/23/2013: IBS (irritable bowel syndrome) No date: Palpitation Comment: CHRONIC 05/24/2020: Post-operative state 05/25/2020: Rectocele 05/03/2020: Shortness of breath 05/30/2020: Status post laparoscopic hysterectomy 12/09/2020: Tubular adenoma of colon 05/03/2020: Uterine prolapse PAST SURGICAL HISTORY 01/07/2015: COLONOSCOPY 12/05/2021: COLONOSCOPY Comment: repeat in 5 years 12/06/2009: COLONOSCOPY GEN ANES Comment: X3 LAST ONE IN 200911/08/2012: EGD 12/05/2021: EGD 05/14/1999: PAST SURGICAL HISTORY OF Comment: left foot bunionectomy w/screws 05/14/1981: PAST SURGICAL HISTORY OF Comment: ectopic w/tube removal 2009: PAST SURGICAL HISTORY OF Comment: CYST REMOVED FROM UTERUS 05/24/2020: PAST SURGICAL HISTORY OF Comment: TVH, partial colpectomy, anterior colporrhaphy, Dennis transobturator midurethral sling, cystourethroscopy, rectocele repair with perineorrhaphy, laparoscopic lysis of adhesions and excision of bilateral adnexal structures 09/07/2020: PAST SURGICAL HISTORY OF Comment: Laparoscopic cholecystectomy with intraoperative cholangiograms. Dr. Ragsdale Current Outpatient Medications Medication Sig aluminum-magnesium hydroxide-simethicone 200-200-20 mg/5 mL suspension Take 30 mL by mouth every 6 hours as needed. dicyclomine (BENTYL) 10 mg capsule Take 1 capsule by mouth three times a day as needed (abdominal pain) for up to 20 doses. simethicone, chewable (MYLICON) 80 mg chewable tablet Take 2 tablets by mouth as directed. As needed after meals for pain /gas levothyroxine (LEVOXYL) 100 mcg tablet Take 1 tablet by mouth daily before breakfast. losartan (COZAAR) 25 mg tablet Take 1 tablet by mouth once daily. furosemide (LASIX) 20 mg tablet Take 1 tablet by mouth once daily. metoprolol succinate ER (TOPROL XL) 25 mg 24 hr tablet Take 1 tablet by mouth daily at bedtime. acetaminophen (TYLENOL) 500 mg tablet Take 2 tablets by mouth every 8 hours as needed for pain. cyanocobalamin (VITAMIN B-12) 1,000 mcg tab Take 1 tablet by mouth once daily. Cholecalciferol, Vitamin D3, 50 mcg (2,000 unit) cap Take 2 capsules by mouth once daily. aspirin, enteric coated (ECOTRIN LOW STRENGTH) 81 mg EC tablet Take 1 tablet by mouth once daily. No current facility-administered medications for this visit. ALLERGIES Allergen Reactions Emilio Inhibitors Intolerance Short of breath, symptoms of heart failure Beta-Blockers (Beta* Intolerance Short of breath, symptoms of heart failure Augmentin [Amoxicil* GI Upset Codeine Mental Status Change Patient felt like she was made out of lead Lipitor [Atorvastat* Myalgia Muscle aches Sulfa (Sulfonamide * Intolerance Amlodipine Intolerance lightheaded Social History Tobacco Use Smoking status: Former Current packs/day: 0.00 Types: Cigarettes Quit date: 10/22/2002 Years since quittin.2 Smokeless tobacco: Never Vaping Use Vaping status: Never Used Substance Use Topics Alcohol use: No Drug use: No ROS: See HPI PE: There were no vitals taken for this visit. Gen: A&OX3, she appears uncomfortable HEENT: PERRLA, EOMs intact b/l, nares without drainage, pharynx without erythema, exudate, lesions,or drainage. Uvula midline. Neck: supple, No cervical LAD, no thyromegaly, no carotid bruits, suboccipital fullness right head,C3-6NRrSBr Right 1st rib inhalation dysfunction T3-10ERrSBl L1-2NRrSBr Left anterior pelvis MS: arthritis changes, antalgic gait No edema. No spinal TTP Intact neurovascular tone of arms and legs ASSESSMENT/PLAN: 1. Chronic neck pain - ICD9: 723.1, 338.29, ICD10: M54.2, G89.29 (primary diagnosis) OMT: Discussed risks, benefits, alternatives, and potential SEs of treatment. Patient wished to proceed with OMT. OMT was performed to the cervical region, head region, lumbar region, pelvis region, thoracic region, and ribs including soft tissue, functional methods, and FPR. Patient tolerated treatment well with good release, increase ROM, and decrease in pain, without complications. Instructed patient to drink plenty of water. Gentle stretches at home. 2. Chronic bilateral thoracic back pain - ICD9: 724.1, 338.29, ICD10: M54.6, G89.29 OMT: Discussed risks, benefits, alternatives, and potential SEs of treatment. Patient wished to proceed with OMT. OMT was performed to the cervical region, head region, lumbar region, pelvis region, thoracic region, and ribs including soft tissue, functional methods, and FPR. Patient tolerated treatment well with good release, increase ROM, and decrease in pain, without complications. Instructed patient to drink plenty of water. Gentle stretches at home. 3. Somatic dysfunction of spine, thoracic - ICD9: 739.2, ICD10: M99.02 OMT: Discussed risks, benefits, alternatives, and potential SEs of treatment. Patient wished to proceed with OMT. OMT was performed to the cervical region, head region, lumbar region, pelvis region, thoracic region, and ribs including soft tissue, functional methods, and FPR. Patient tolerated treatment well with good release, increase ROM, and decrease in pain, without complications. Instructed patient to drink plenty of water. Gentle stretches at home. 4. Somatic dysfunction of rib - ICD9: 739.8, ICD10: M99.08 OMT: Discussed risks, benefits, alternatives, and potential SEs of treatment. Patient wished to proceed with OMT. OMT was performed to the cervical region, head region, lumbar region, pelvis region, thoracic region, and ribs including soft tissue, functional methods, and FPR. Patient tolerated treatment well with good release, increase ROM, and decrease in pain, without complications. Instructed patient to drink plenty of water. Gentle stretches at home. 5. Somatic dysfunction of spine, cervical - ICD9: 739.1, ICD10: M99.01 OMT: Discussed risks, benefits, alternatives, and potential SEs of treatment. Patient wished to proceed with OMT. OMT was performed to the cervical region, head region, lumbar region, pelvis region, thoracic region, and ribs including soft tissue, functional methods, and FPR. Patient tolerated treatment well with good release, increase ROM, and decrease in pain, without complications. Instructed patient to drink plenty of water. Gentle stretches at home. 6. Somatic dysfunction of pelvic region - ICD9: 739.5, ICD10: M99.05 OMT: Discussed risks, benefits, alternatives, and potential SEs of treatment. Patient wished to proceed with OMT. OMT was performed to the cervical region, head region, lumbar region, pelvis region, thoracic region, and ribs including soft tissue, functional methods, and FPR. Patient tolerated treatment well with good release, increase ROM, and decrease in pain, without complications. Instructed patient to drink plenty of water. Gentle stretches at home. 7. Somatic dysfunction of head region - ICD9: 739.0, ICD10: M99.00 OMT: Discussed risks, benefits, alternatives, and potential SEs of treatment. Patient wished to proceed with OMT. OMT was performed to the cervical region, head region, lumbar region, pelvis region, thoracic region, and ribs including soft tissue, functional methods, and FPR. Patient tolerated treatment well with good release, increase ROM, and decrease in pain, without complications. Instructed patient to drink plenty of water. Gentle stretches at home. 8. Somatic dysfunction of spine, lumbar - ICD9: 739.3, ICD10: M99.03 OMT: Discussed risks, benefits, alternatives, and potential SEs of treatment. Patient wished to proceed with OMT. OMT was performed to the cervical region, head region, lumbar region, pelvis region, thoracic region, and ribs including soft tissue, functional methods, and FPR. Patient tolerated treatment well with good release, increase ROM, and decrease in pain, without complications. Instructed patient to drink plenty of water. Gentle stretches at home. Mandeep Houser DO Return if no improvement. Follow up with Mandeep Houser DO. To ER if develops chest pain, shortness of breath. Discussed risks, benefits, alternatives, and potential side effects of medications. Patient/Guardian expressed understanding and agreed with the plan. See patient instructions. Mandeep Houser DO [address] [place] [address] documented [facility] NoteHNO ID: [id number] Author: MANDEEP HOUSER DO Service: ? Author Type: Physician Type: Progress Notes Filed: 12/12/2023 17:23 Note Text: CC: Sandra Schmitz is a 78 year old female who presents to the office for OMT HPI: Acute back pain, started yesterday with significant mid to lower back pain. Has been up doing a lot around her home. Otherwise doesn't know what started or triggered her symptoms, no new bowel or bladder changes. Pain is worse when moving from sitting to standing or with standing or walking. No trauma that she is aware of. Pain is severe, has been taking tylenol and using ice and heating pad without relief of symptoms. She is not able to take NSAIDs. Has been doing a lot of new exercise with cardiac rehab which has been held since her back pain flare up. Had improvements after her OMT PAST MEDICAL HISTORY 05/30/2020: Acute acalculous cholecystitis 09/22/2020: 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 05/03/2020: Acute on chronic systolic CHF (congestive heart failure) ([facility]) 05/30/2020: Aspiration pneumonia ([facility]) 05/03/2020: Chest pain 01/23/2013: Chest pressure 02/14/2021: Chronic diastolic congestive heart failure ([facility]) 09/28/2020: Clostridium difficile diarrhea No date: Complete uterovaginal prolapse No date: Cystocele, midline 06/14/2020: Essential hypertension 05/03/2020: Homozygous Factor V Leiden mutation ([facility]) No date: Hypothyroidism 01/23/2013: IBS (irritable bowel syndrome) No date: Palpitation Comment: CHRONIC 05/24/2020: Post-operative state 05/25/2020: Rectocele 05/03/2020: Shortness of breath 05/30/2020: Status post laparoscopic hysterectomy 12/09/2020: Tubular adenoma of colon 05/03/2020: Uterine prolapse PAST SURGICAL HISTORY 01/07/2015: COLONOSCOPY 12/05/2021: COLONOSCOPY Comment: repeat in 5 years 12/06/2009: COLONOSCOPY GEN ANES Comment: X3 LAST ONE IN 200911/08/2012: EGD 12/05/2021: EGD 05/14/1999: PAST SURGICAL HISTORY OF Comment: left foot bunionectomy w/screws 05/14/1981: PAST SURGICAL HISTORY OF Comment: ectopic w/tube removal 2009: PAST SURGICAL HISTORY OF Comment: CYST REMOVED FROM UTERUS 05/24/2020: PAST SURGICAL HISTORY OF Comment: TVH, partial colpectomy, anterior colporrhaphy, Dennis transobturator midurethral sling, cystourethroscopy, rectocele repair with perineorrhaphy, laparoscopic lysis of adhesions and excision of bilateral adnexal structures 09/07/2020: PAST SURGICAL HISTORY OF Comment: Laparoscopic cholecystectomy with intraoperative cholangiograms. Dr. Ragsdale Current Outpatient Medications Medication Sig aluminum-magnesium hydroxide-simethicone 200-200-20 mg/5 mL suspension Take 30 mL by mouth every 6 hours as needed. dicyclomine (BENTYL) 10 mg capsule Take 1 capsule by mouth three times a day as needed (abdominal pain) for up to 20 doses. simethicone, chewable (MYLICON) 80 mg chewable tablet Take 2 tablets by mouth as directed. As needed after meals for pain /gas levothyroxine (LEVOXYL) 100 mcg tablet Take 1 tablet by mouth daily before breakfast. losartan (COZAAR) 25 mg tablet Take 1 tablet by mouth once daily. furosemide (LASIX) 20 mg tablet Take 1 tablet by mouth once daily. metoprolol succinate ER (TOPROL XL) 25 mg 24 hr tablet Take 1 tablet by mouth daily at bedtime. acetaminophen (TYLENOL) 500 mg tablet Take 2 tablets by mouth every 8 hours as needed for pain. cyanocobalamin (VITAMIN B-12) 1,000 mcg tab Take 1 tablet by mouth once daily. Cholecalciferol, Vitamin D3, 50 mcg (2,000 unit) cap Take 2 capsules by mouth once daily. aspirin, enteric coated (ECOTRIN LOW STRENGTH) 81 mg EC tablet Take 1 tablet by mouth once daily. No current facility-administered medications for this visit. ALLERGIES Allergen Reactions Emilio Inhibitors Intolerance Short of breath, symptoms of heart failure Beta-Blockers (Beta* Intolerance Short of breath, symptoms of heart failure Augmentin [Amoxicil* GI Upset Codeine Mental Status Change Patient felt like she was made out of lead Lipitor [Atorvastat* Myalgia Muscle aches Sulfa (Sulfonamide * Intolerance Amlodipine Intolerance lightheaded Social History Tobacco Use Smoking status: Former Types: Cigarettes Quit date: 10/22/2002 Years since quittin.1 Smokeless tobacco: Never Vaping Use Vaping Use: Never used Substance Use Topics Alcohol use: No Drug use: No ROS: See HPI PE: There were no vitals taken for this visit. Gen: AANDOX3, she appears uncomfortable HEENT: PERRLA, EOMs intact b/l, nares without drainage, pharynx without erythema, exudate, lesions, or drainage. Uvula midline. Neck: supple, No cervical LAD, no thyromegaly, no carotid bruits, suboccipital fullness right head, C3-6NRrSBr Right 1st rib inhalation dysfunction T3-10ERrSBl Left anterior pelvis MS: arthritis changes, antalgic gait No edema. ASSESSMENT/PLAN: 1. Chronic bilateral thoracic back pain (more content not included)...[facility]07-31-2024 History of Present illness Narrative* Mandeep Houser, - 12/12/2023 5:19 PM EDT CC: Sandra Schmitz is a 78 year old female who presents to the office for OMT HPI: Acute back pain, started yesterday with significant mid to lower back pain. Has been up doing a lotaround her home. Otherwise doesn't know what started or triggered her symptoms, no new bowel or bladder changes. Pain is worse when moving from sitting to standing or with standing or walking. No trauma that she is aware of. Pain is severe, has been taking tylenol and using ice and heating pad without relief of symptoms. She is not able to take NSAIDs. Has been doing a lot of new exercise with cardiac rehab which has been held since her back pain flare up. Had improvements after her OMT PAST MEDICAL HISTORY 05/30/2020: Acute acalculous cholecystitis 09/22/2020: 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 05/03/2020: Acute on chronic systolic CHF (congestive heart failure) ([facility]) 05/30/2020: Aspiration pneumonia ([facility]) 05/03/2020: Chest pain 01/23/2013: Chest pressure 02/14/2021: Chronic diastolic congestive heart failure ([facility]) 09/28/2020: Clostridium difficile diarrhea No date: Complete uterovaginal prolapse No date: Cystocele, midline 06/14/2020: Essential hypertension 05/03/2020: Homozygous Factor V Leiden mutation ([facility]) No date: Hypothyroidism 01/23/2013: IBS (irritable bowel syndrome) No date: Palpitation Comment: CHRONIC 05/24/2020: Post-operative state 05/25/2020: Rectocele 05/03/2020: Shortness of breath 05/30/2020: Status post laparoscopic hysterectomy 12/09/2020: Tubular adenoma of colon 05/03/2020: Uterine prolapse PAST SURGICAL HISTORY 01/07/2015: COLONOSCOPY 12/05/2021: COLONOSCOPY Comment: repeat in 5 years 12/06/2009: COLONOSCOPY GEN ANES Comment: X3 LAST ONE IN 200911/08/2012: EGD 12/05/2021: EGD 05/14/1999: PAST SURGICAL HISTORY OF Comment: left foot bunionectomy w/screws 05/14/1981: PAST SURGICAL HISTORY OF Comment: ectopic w/tube removal 2009: PAST SURGICAL HISTORY OF Comment: CYST REMOVED FROM UTERUS 05/24/2020: PAST SURGICAL HISTORY OF Comment: TVH, partial colpectomy, anterior colporrhaphy, Dennis transobturator midurethral sling, cystourethroscopy, rectocele repair with perineorrhaphy, laparoscopic lysis of adhesions and excision of bilateral adnexal structures 09/07/2020: PAST SURGICAL HISTORY OF Comment: Laparoscopic cholecystectomy with intraoperative cholangiograms. Dr. Ragsdale Current Outpatient Medications Medication Sig aluminum-magnesium hydroxide-simethicone 200-200-20 mg/5 mL suspension Take 30 mL by mouth every 6 hours as needed. dicyclomine (BENTYL) 10 mg capsule Take 1 capsule by mouth three times a day as needed (abdominal pain) for up to 20 doses. simethicone, chewable (MYLICON) 80 mg chewable tablet Take 2 tablets by mouth as directed. As needed after meals for pain /gas levothyroxine (LEVOXYL) 100 mcg tablet Take 1 tablet by mouth daily before breakfast. losartan (COZAAR) 25 mg tablet Take 1 tablet by mouth once daily. furosemide (LASIX) 20 mg tablet Take 1 tablet by mouth once daily. metoprolol succinate ER (TOPROL XL) 25 mg 24 hr tablet Take 1 tablet by mouth daily at bedtime. acetaminophen (TYLENOL) 500 mg tablet Take 2 tablets by mouth every 8 hours as needed for pain. cyanocobalamin (VITAMIN B-12) 1,000 mcg tab Take 1 tablet by mouth once daily. Cholecalciferol, Vitamin D3, 50 mcg (2,000 unit) cap Take 2 capsules by mouth once daily. aspirin, enteric coated (ECOTRIN LOW STRENGTH) 81 mg EC tablet Take 1 tablet by mouth once daily. No current facility-administered medications for this visit. ALLERGIES Allergen Reactions Emilio Inhibitors Intolerance Short of breath, symptoms of heart failure Beta-Blockers (Beta* Intolerance Short of breath, symptoms of heart failure Augmentin [Amoxicil* GI Upset Codeine Mental Status Change Patient felt like she was made out of lead Lipitor [Atorvastat* Myalgia Muscle aches Sulfa (Sulfonamide * Intolerance Amlodipine Intolerance lightheaded Social History Tobacco Use Smoking status: Former Types: Cigarettes Quit date: 10/22/2002 Years since quittin.1 Smokeless tobacco: Never Vaping Use Vaping Use: Never used Substance Use Topics Alcohol use: No Drug use: No ROS: See HPI PE: There were no vitals taken for this visit. Gen: A&OX3, she appears uncomfortable HEENT: PERRLA, EOMs intact b/l, nares without drainage, pharynx without erythema, exudate, lesions,or drainage. Uvula midline. Neck: supple, No cervical LAD, no thyromegaly, no carotid bruits, suboccipital fullness right head,C3-6NRrSBr Right 1st rib inhalation dysfunction T3-10ERrSBl Left anterior pelvis MS: arthritis changes, antalgic gait No edema. ASSESSMENT/PLAN: 1. Chronic bilateral thoracic back pain - ICD9: 724.1, 338.29, ICD10: M54.6, G89.29 (primary diagnosis) OMT: Discussed risks, benefits, alternatives, and potential SEs of treatment. Patient wished to proceed with OMT. OMT was performed to the cervical region, thoracic region, head region, pelvis and ribs including soft tissue, functional methods. Patient tolerated treatment well with good release, increase ROM, and decrease in pain, without complications. Instructed patient to drink plenty of water. Gentle stretches at home. 2. Somatic dysfunction of head region - ICD9: 739.0, ICD10: M99.00 OMT: Discussed risks, benefits, alternatives, and potential SEs of treatment. Patient wished to proceed with OMT. OMT was performed to the cervical region, thoracic region, head region, pelvis and ribs including soft tissue, functional methods. Patient tolerated treatment well with good release, increase ROM, and decrease in pain, without complications. Instructed patient to drink plenty of water. Gentle stretches at home. 3. Somatic dysfunction of spine, cervical - ICD9: 739.1, ICD10: M99.01 OMT: Discussed risks, benefits, alternatives, and potential SEs of treatment. Patient wished to proceed with OMT. OMT was performed to the cervical region, thoracic region, head region, pelvis and ribs including soft tissue, functional methods. Patient tolerated treatment well with good release, increase ROM, and decrease in pain, without complications. Instructed patient to drink plenty of water. Gentle stretches at home. 4. Somatic dysfunction of rib - ICD9: 739.8, ICD10: M99.08 OMT: Discussed risks, benefits, alternatives, and potential SEs of treatment. Patient wished to proceed with OMT. OMT was performed to the cervical region, thoracic region, head region, pelvis and ribs including soft tissue, functional methods. Patient tolerated treatment well with good release, increase ROM, and decrease in pain, without complications. Instructed patient to drink plenty of water. Gentle stretches at home. 5. Somatic dysfunction of spine, thoracic - ICD9: 739.2, ICD10: M99.02 OMT: Discussed risks, benefits, alternatives, and potential SEs of treatment. Patient wished to proceed with OMT. OMT was performed to the cervical region, thoracic region, head region, pelvis and ribs including soft tissue, functional methods. Patient tolerated treatment well with good release, increase ROM, and decrease in pain, without complications. Instructed patient to drink plenty of water. Gentle stretches at home. 6. Somatic dysfunction of pelvic region - ICD9: 739.5, ICD10: M99.05 OMT: Discussed risks, benefits, alternatives, and potential SEs of treatment. Patient wished to proceed with OMT. OMT was performed to the cervical region, thoracic region, head region, pelvis and ribs including soft tissue, functional methods. Patient tolerated treatment well with good release, increase ROM, and decrease in pain, without complications. Instructed patient to drink plenty of water. Gentle stretches at home. Mandeep Houser DO Return if no improvement. Follow up with Mandeep Houser DO. To ER if develops chest pain, shortness of breath. Discussed risks, benefits, alternatives, and potential side effects of medications. Patient/Guardian expressed understanding and agreed with the plan. See patient instructions. Mandeep Houser DO [address] [place] [address] documented in this [facility] Telephone encounter Note * Telephone Encounter - Helen Ramachandran RN - 12/10/2023 11:37 AM EDT I spoke with pt about information below from Dr. Wells. Pt wants Dr. Wells to know that she suspended cardiac rehab d/t back and hip issues that her PCP, Dr. Houser has recently recommended water therapy. Pt also said she is following ED DrAsael's advice (11/15/23-11/18/23) for furosemide decreased doses PRN for edema. No further questions. Pt confirmed understanding. [facility] Miscellaneous Notes* Telephone Encounter - Helen Ramachandran RN - 12/10/2023 11:37 AM EDT I spoke with pt about information below from Dr. Wells. Pt wants Dr. Wells to know that she suspended cardiac rehab d/t back and hip issues that her PCP, Dr. Houser has recently recommended water therapy. Pt also said she is following ED DrAsael's advice (11/15/23-11/18/23) for furosemide decreased doses PRN for edema. No further questions. Pt confirmed understanding. * Telephone Encounter - Helen Ramachandran RN - 12/10/2023 11:31 AM EDT Pili Wells MD In, Please call patient with results. She doesn't have mychart for me to send message. Thanks, * Telephone Encounter - Pili Wells MD - 12/06/2023 6:49 PM EDT Echo results reviewed. LVEF remains stable, mitral regurgitation is improved. At this time we will continue with medications. No changes documented in this encounterK[facility] Telephone encounter Note * Telephone Encounter - Helen Ramachandran RN - 12/10/2023 11:31 AM EDT Pili Wells MD In, Please call patient with results. She doesn't have mychart for me to send message. Thanks, [facility]07-25-2024 Telephone encounter Note* Telephone Encounter - Pili Wells MD - 12/06/2023 6:49 PM EDT Echo results reviewed. LVEF remains stable, mitral regurgitation is improved. At this time we will continue with medications. No changes [facility]07-17-2024 Telephone encounter Note* Telephone Encounter - Concetta Dahl - 11/28/2023 11:06 AM EDT Transitional Care Management (TCM) [facility] Monitoring Program Provider Action / FYI: N/A SUMMARY: Outreach type: FOLLOW-UP OUTREACH Discharge Network Status: In-Network Discharge Source of Patient: [facility] TCM Discharge Report Patient discharged from [facility] on 11/18/23. Admitted for Pre-syncope. Contact made with patient: Yes, for Follow-up Outreach In, my name is Concettajose a Edmondslela. I am calling from the [facility] on behalf of your PrimaryCare Provider, Mandeep Houser DO. I would like to follow-up with you after your hospital discharge to ensure you continue to improve now that you are home. May I ask you a few questions related to your hospital stay and well-being? Yes Contact with patient post discharge, spoke to patient. Patient identified by name and . Symptoms: Do you feel your health is BETTER, WORSE, or the SAME since leaving the hospital? Better Action Taken: Patient indicated symptoms are better or same, no action required. Hospital Follow-Up Appointment: I would like to help you schedule a hospital follow-up visit with your Primary Care Provider (PCP). This is a great way for you to connect with your provider to ensure you have safely transitioned home. If you are agreeable, I will provide you with the Appointment Center phone number to speak witha java oracle developer who can assist you with that appointment. This will give you an opportunity to ask any questions or address any concerns you may have with your Primary Care Provider. [Inform the patient that if they have any questions or concerns prior to that appointment, to call their PCP's office right away.] Action Taken: No action required, patient already has an appointment scheduled. Concetta Dahl November 28, 2023 11:09 AM [facility]07-17-2024 Miscellaneous Notes* Telephone Encounter - Concetta Dahl - 11/28/2023 11:06 AM EDT Transitional Care Management (TCM) [facility] Monitoring [facility] Provider Action / FYI: N/A SUMMARY: Outreach type: FOLLOW-UP OUTREACH Discharge Network Status: In-Network Discharge Source of Patient: [facility] TCM Discharge Report Patient discharged from [facility] on 11/18/23. Admitted for Pre-syncope. Contact made with patient: Yes, for Follow-up Outreach Hi, my name is Concetta Nabila. I am calling from the [facility] on behalf of your PrimaryCare Provider, Mandeep Houser DO. I would like to follow-up with you after your hospital discharge to ensure you continue to improve now that you are home. May I ask you a few questions related to your hospital stay and well-being? Yes Contact with patient post discharge, spoke to patient. Patient identified by name and . Symptoms: Do you feel your health is BETTER, WORSE, or the SAME since leaving the hospital? Better Action Taken: Patient indicated symptoms are better or same, no action required. Hospital Follow-Up Appointment: I would like to help you schedule a hospital follow-up visit with your Primary Care Provider (PCP). This is a great way for you to connect with your provider to ensure you have safely transitioned home. If you are agreeable, I will provide you with the Appointment Center phone number to speak witha java oracle developer who can assist you with that appointment. This will give you an opportunity to ask any questions or address any concerns you may have with your Primary Care Provider. [Inform the patient that if they have any questions or concerns prior to that appointment, to call their PCP's office right away.] Action Taken: No action required, patient already has an appointment scheduled. Concetta Dahl November 28, 2023 11:09 AM documented in [facility] Telephone encounter Note * Telephone Encounter - Rojas Prakash RN - 11/23/2023 1:28 PM EDT Transitional Care Management (TCM) [facility] Provider Action / FYI: na SUMMARY: Outreach type: INITIAL OUTREACH Discharge Network Status: In-Network Discharge Source of Patient: [facility] TCM Discharge Report Patient discharged from [facility] on 11.18.23. Admitted for Pre-syncope . Contact made with patient: No - next outreach attempt will be on next business day. Rojas Prakash RN November 23, 2023 1:29 PM [facility]07-12-2024 Miscellaneous Notes* Telephone Encounter - Rojas Prakash RN - 11/23/2023 1:28 PM EDT Transitional Care Management (TCM) [facility] Provider Action / FYI: na SUMMARY: Outreach type: INITIAL OUTREACH Discharge Network Status: In-Network Discharge Source of Patient: [facility] TCM Discharge Report Patient discharged from [facility] on 11.18.23. Admitted for Pre-syncope . Contact made with patient: No - next outreach attempt will be on next business day. Rojas Prakash RN November 23, 2023 1:29 PM documented in this encounterK[facility] Telephone encounter Note * Telephone Encounter - Misty Ascencio RN - 11/20/2023 10:23 AM EDT HF Follow-up Phone Call: Red Flags: Patient noticed change in their breathing since discharge: No Patient noticed increased swelling in their feet or ankles: No Patient gained more than 4 pounds since discharge: No Patient noticed change in incision since discharge (surgical patients only): N/A Patient having chest discomfort since discharge: No If yes, what type of pain and where: Patient went to the ED or hospital after their discharge: No Was it related to HF: No Reason: Medications: Did patient refill their prescriptions: Yes If no, why: N/A Patient taking medications as prescribed: yes If no, why: N/A Patient had questions about their medications: No Care Coordination: Patient had an appointment within 7 days: Yes Patient issues with appointment: N/A Comments: Pt doing well. Weights within a couple ounces. Reviewed upcoming appointments. Discussed when to reach out to medical team for s/s of fluid overload or dehydration. Sodium 140 11/18/2023 Potassium 4.1 11/18/2023 BUN 30 11/18/2023 Creatinine 0.96 11/18/2023 No results found for this basename: BNP [facility]07-09-2024 Miscellaneous Notes* Telephone Encounter - Misty Ascencio RN - 11/20/2023 10:23 AM EDT HF Follow-up Phone Call: Red Flags: Patient noticed change in their breathing since discharge: No Patient noticed increased swelling in their feet or ankles: No Patient gained more than 4 pounds since discharge: No Patient noticed change in incision since discharge (surgical patients only): N/A Patient having chest discomfort since discharge: No If yes, what type of pain and where: Patient went to the ED or hospital after their discharge: No Was it related to HF: No Reason: Medications: Did patient refill their prescriptions: Yes If no, why: N/A Patient taking medications as prescribed: yes If no, why: N/A Patient had questions about their medications: No Care Coordination: Patient had an appointment within 7 days: Yes Patient issues with appointment: N/A Comments: Pt doing well. Weights within a couple ounces. Reviewed upcoming appointments. Discussed when to reach out to medical team for s/s of fluid overload or dehydration. Sodium 140 11/18/2023 Potassium 4.1 11/18/2023 BUN 30 11/18/2023 Creatinine 0.96 11/18/2023 No results found for this basename: BNP documented in this encounterK[facility]24 NoteHNO ID: [id number] Author: REMINGTON CAI MD Service: Hospital Medicine Author Type: Physician Type: Progress Notes Filed: 11/18/2023 08:20 Note Text: DEPARTMENT OF HOSPITAL MEDICINE PROGRESS NOTE SERVICE DATE: 11/17/2023 SERVICE TIME: 3:13 PM Hospital Medicine/Primary Attending: Remington Cai MD NIGHT AND WEEKEND COVERAGE: [employer]: Nights: [phone], please page [facility] Hospitalist Night coverage pager [phone]. Probable discharge: 11/17 Disposition: Home Consultants: PROCEDURES: NONE Anticoagulation: Prior to admission: 81 mg aspirin daily Current: 81 mg aspirin daily Smoking history: Quit 2002 ASSESSMENT/PLAN Reason for Admission: Presyncope INTERVAL COURSE OF EVENTS: Lungs clear with slight JVD renal function has returned to baseline and patient's weight corresponds to her intake and output but with about a 4 pound weight gain. Resuming her Lasix 20 mg daily, Toprol 25 mg daily and losartan 25 mg daily. Will reassess orthostatics weight and examination tomorrow. At that point we should be able to make any adjustments and then discharge the patient. Patient Active Hospital Problem List: 1. Pre-syncope Dehydration with abdominal cramps and then vagal episode 2. Nonischemic cardiomyopathy (HCC) POA: Yes No sign of volume overload 3. IBS (irritable bowel syndrome) POA: Yes Stable now 4. Hypothyroidism POA: Yes Continue current dosage 5. Primary hypertension POA: Yes Continue current medications 6. Mixed hyperlipidemia POA: Yes Continue current medications 7. Chronic systolic congestive heart failure (HCC) POA: Yes He has some diastolic dysfunction was dehydrated and will continue hydration for her acute kidney injury 8. MAYCOL (acute kidney injury) (HCC) Baseline BUN in the 30s baseline creatinine around 1.0 or lower OBJECTIVE EK11/15/2023 atrial sensed ventricular paced rhythm with what appears to be biventricular pacing with a right bundle and left anterior hemiblock pattern and poor R wave progression QRS complexes are very similar to 11/01/2023 ECHOCARDIOGRAM: 07/12/2023 The left ventricle is severely dilated. Left ventricular systolic function is severely decreased. EF = 26 ? 5% (2D biplane). Grade II left ventricular diastolic dysfunction. - The right ventricle is normal in size. Right ventricular systolic function is normal. - There is mild to moderate (1+ - 2+) mitral valve regurgitation. - There is mild (1+) tricuspid valve regurgitation. - There is mild (1+) aortic valve regurgitation. - There is mild to moderate (1+ - 2+) pulmonic valve regurgitation. - Wall motion abnormalities as above. Recent Labs 11/15/232003 VPC2 46 VPO2C 42 VBE 2 BICARB 27 LACT 1.6 Recent Labs 11/15/232003 KWB 3.8 Recent Labs 11/17/2343711/16/2342211/15/232003 MCV 92.2 91.4 91.9 MCH 29.1 28.9 29.3 MPV 9.8 10.1 10.4 Recent Labs 11/17/2343711/16/2342211/15/23200310/31/23 1612 WBC 9.28 13.58* 15.66* 10.82 RBC 3.99 4.09 4.71 4.52 HB 11.6 11.8 13.8 13.0 HCT 36.8 37.4 43.3 41.9 PLT 321 356 386 326 MCV 92.2 91.4 91.9 92.7 MCH 29.1 28.9 29.3 28.8 MPV 9.8 10.1 10.4 10.4 ABSNEUT -- -- 11.69* 5.24 NEUTP -- -- 74.7 48.6 LYMPHP -- -- 15.0 37.4 MONOP -- -- 6.7 9.1 EODINP -- -- 1.4 3.1 Recent Labs 11/17/2343711/16/2342211/15/232003 GLUC 79 121* 147* NA 143 140 139 K 4.8 4.7 4.5 CHLOR 110* 105 100 CO2 28 25 28 CREAT 1.05* 1.28* 1.94* BUN 34* 46* 50* ANION 5* 10 11 CA 8.5 8.6 9.5 TPROT 6.0* 6.3 7.5 ALB 3.5* 3.4* 3.9 TBILI 0.4 0.3 0.3 ALKPHOS 56 58 64 AST 16 16 -- ALT 16 15 14 Recent Labs 11/17/2343711/16/2342211/15/232003 GLUC 79 121* 147* Recent Labs 11/15/232003 LACT 1.6 Recent Labs 11/17/2343711/16/2342211/15/232003 BUN 34* 46* 50* CREAT 1.05* 1.28* 1.94* CA 8.5 8.6 9.5 MG 2.0 2.1 2.2 Most recent labs Last 14 BP Last 14 Encounter BP Readings: Date: BP: 11/15/2023 129/43 11/01/2023 125/79 10/31/2023 150/80 10/15/2023 130/68 10/01/2023 118/84 09/13/2023 122/80 09/05/2023 128/84 08/22/2023 122/84 08/07/2023 125/82 08/07/2023 115/74 07/24/2023 120/80 2023 114/73 07/13/2023 99/63 07/10/2023 130/70 Hemoglobin A1C (%) Date Value 07/21/2022 5.7 09/14/2021 5.7 TSH Date Value Ref Range Status 11/15/2023 1.470 0.270 - 4.200 mIU/L Final HOSPITAL COURSE: Sandra Schmitz is a 78 year old female presented with past medical history of non ischemic cardiomyopathy, HFrEF (1st dx 2019, 07-12-23: EF 26%), s/p CUT PLUG PACKER-D (July 20, 2023, [employer]), non occlusive CAD ([facility]: ), IBS, Factor V Leiden Syndrome, HTN, HLD, CAD, Hypothyroidism almost blacking out. Patient states that earlier today she was having some abdominal spasms and went to the bathroom. Had a small BM then proceeded to very lightheaded and states her visions kind of went dark but she did not lose full consci (more content not included)...[facility] [id number] NoteHNO ID: [id number] Author: REMINGTON CAI MD Service: Hospital Medicine Author Type: Physician Type: Progress Notes Filed: 11/17/2023 15:12 Note Text: [facility]PART[facility] OF [facility] MEDICINE PROGRESS NOTE SERVICE DATE: 11/16/2023 SERVICE TIME: 2:31 PM Hospital Medicine/Primary Attending: Remington Cai MD NIGHT AND WEEKEND COVERAGE: [employer]: Nights: [phone], please page [facility] Hospitalist Night coverage pager [phone]. Probable discharge: 11/16 Disposition: Home Consultants: PROCEDURES: NONE Anticoagulation: Prior to admission: 81 mg aspirin daily Current: 81 mg aspirin daily Smoking history: Quit 2002 ASSESSMENT/PLAN Reason for Admission: Presyncope INTERVAL COURSE OF EVENTS: Patient with acute kidney injury improving with IV hydration. She has diastolic dysfunction. She had been somewhat dehydrated probably from the heat and having diarrhea she went to the bathroom was slightly lightheaded going there and then had what sounds to be a vagal episode while on the toilet with profuse diaphoresis and nausea and then slumping to the ground she did not completely lose consciousness. And she was taken to the emergency department and found to have acute kidney injury and admitted to the medical floor. Patient Active Hospital Problem List: 1. Pre-syncope Dehydration with abdominal cramps and then vagal episode 2. Nonischemic cardiomyopathy (HCC) POA: Yes No sign of volume overload 3. IBS (irritable bowel syndrome) POA: Yes Stable now 4. Hypothyroidism POA: Yes Continue current dosage 5. Primary hypertension POA: Yes Continue current medications 6. Mixed hyperlipidemia POA: Yes Continue current medications 7. Chronic systolic congestive heart failure (HCC) POA: Yes He has some diastolic dysfunction was dehydrated and will continue hydration for her acute kidney injury 8. MAYCOL (acute kidney injury) (HCC) Baseline BUN in the 30s baseline creatinine around 1.0 or lower OBJECTIVE EK11/15/2023 atrial sensed ventricular paced rhythm with what appears to be biventricular pacing with a right bundle and left anterior hemiblock pattern and poor R wave progression QRS complexes are very similar to 11/01/2023 ECHOCARDIOGRAM: 07/12/2023 The left ventricle is severely dilated. Left ventricular systolic function is severely decreased. EF = 26 ? 5% (2D biplane). Grade II left ventricular diastolic dysfunction. - The right ventricle is normal in size. Right ventricular systolic function is normal. - There is mild to moderate (1+ - 2+) mitral valve regurgitation. - There is mild (1+) tricuspid valve regurgitation. - There is mild (1+) aortic valve regurgitation. - There is mild to moderate (1+ - 2+) pulmonic valve regurgitation. - Wall motion abnormalities as above. Recent Labs 11/15/232003 VPC2 46 VPO2C 42 VBE 2 BICARB 27 LACT 1.6 Recent Labs 11/15/232003 KWB 3.8 Recent Labs 11/17/2343711/16/2342211/15/232003 MCV 92.2 91.4 91.9 MCH 29.1 28.9 29.3 MPV 9.8 10.1 10.4 Recent Labs 11/17/2343711/16/233 11/15/23200310/31/23 1612 WBC 9.28 13.58* 15.66* 10.82 RBC 3.99 4.09 4.71 4.52 HB 11.6 11.8 13.8 13.0 HCT 36.8 37.4 43.3 41.9 PLT 321 356 386 326 MCV 92.2 91.4 91.9 92.7 MCH 29.1 28.9 29.3 28.8 MPV 9.8 10.1 10.4 10.4 ABSNEUT -- -- 11.69* 5.24 NEUTP -- -- 74.7 48.6 LYMPHP -- -- 15.0 37.4 MONOP -- -- 6.7 9.1 EODINP -- -- 1.4 3.1 Recent Labs 07/0643711/16/2342211/15/232003 GLUC 79 121* 147* NA 143 140 139 K 4.8 4.7 4.5 CHLOR 110* 105 100 CO2 28 25 28 CREAT 1.05* 1.28* 1.94* BUN 34* 46* 50* ANION 5* 10 11 CA 8.5 8.6 9.5 TPROT 6.0* 6.3 7.5 ALB 3.5* 3.4* 3.9 TBILI 0.4 0.3 0.3 ALKPHOS 56 58 64 AST 16 16 -- ALT 16 15 14 Recent Labs 11/17/2343711/16/2342211/15/232003 GLUC 79 121* 147* Recent Labs 11/15/232003 LACT 1.6 Recent Labs 11/17/2343711/16/2342211/15/232003 BUN 34* 46* 50* CREAT 1.05* 1.28* 1.94* CA 8.5 8.6 9.5 MG 2.0 2.1 2.2 Most recent labs Last 14 BP Last 14 Encounter BP Readings: Date: BP: 11/15/2023 129/43 11/01/2023 125/79 10/31/2023 150/80 10/15/2023 130/68 10/01/2023 118/84 09/13/2023 122/80 09/05/2023 128/84 08/22/2023 122/84 08/07/2023 125/82 08/07/2023 115/74 07/24/2023 120/80 2023 114/73 07/13/2023 99/63 07/10/2023 130/70 Hemoglobin A1C (%) Date Value 07/21/2022 5.7 09/14/2021 5.7 TSH Date Value Ref Range Status 11/15/2023 1.470 0.270 - 4.200 mIU/L Final HOSPITAL COURSE: Sandra Schmitz is a 78 year old female presented with past medical history of non ischemic cardiomyopathy, HFrEF ( dx 2019, 07-12-23: EF 26%), s/p CUT PLUG PACKER-D (July 20, 2023, [employer]), non occlusive CAD ([facility]: ), IBS, Factor V Leiden Syndrome, HTN, HLD, CAD, Hypothyroidism almost blacking out. Patient states that earlier today she was having some abdominal spasms and went (more content not included)...[facility] [id number] NoteHNO ID: [id number] Author: SADIE TALBERT RN Service: Care Management Author Type: Registered Nurse Type: Care Mgt Initial Assessment Filed: 11/16/2023 09:43 Note Text: CARE MANAGEMENT: ASSESSMENT AND DISCHARGE PLAN SERVICE DATE: November 16, 2023 SERVICE TIME: 9:42 AM PCP: Mandeep Houser DO--Confirmed Primary Contact: Extended Emergency Contact Information Primary Emergency Contact: Louisa Crouch Mobile Relation: Sister Secondary Emergency Contact: Julia Schmitz Mobile Relation: Daughter Admission Status: Observation Insurance Provider: MEDICARE A AND B Discharge Planning requested by: Per Department Practice Potential Transition Plans Home;To Be Determined Advance Directives Current Advance Directive: None Security Analyst Attempted to Assist with AD Completion: Yes Action: Education Provided Current Living Arrangements and Support Lives with: Children Type of Residence: Private Residence (House) Does the patient have to climb stairs at home?: Yes;stairs outside the home Support: Children, Family members, Friends/neighbors How do you manage to accomplish the following: Independent: Ambulation;Bathe/Shower;Meals/Meal Prep;Dress;Going to the bathroom;Medication Management;Transportation to appointments/community Current Services/Equipment Current Post-Acute Service(s): DME Current DME Type: Walker Discharge Planning Patient Goal(s): Independent living, Be able to go home, General wellness [place] Explained: [place] Given: No Reason Not Given: No placements necessary Are you interested in bedside delivery of your medications? Yes Discharge Planning Participant(s): Patient;Children Patient/Family Comments: Caregiver Assessment: Caregiver is ready, willing and able to meet the patient's needs as recommended by the inter-professional team: No Caregiver needed Transport at Discharge: Transportation Arrangements: Car Needs Prior to Discharge: Needs Prior to Discharge: To Be Determined;Other: See Comment (Medical Clearance) Post-Acute Discharge Plan: CM spoke to sister on the phone, introduced self and role. Pt is 78 y/o, admit Dx Pre-syncope. On RA. Pt is AANDO X 3, IPTA. Patient is from home with daughter. Family to transport upon discharge. CM instructed patient that CM team will remain available for any dc needs. SIGNATURE: Sadie Talbert RN PATIENT NAME: Sandra Schmitz DATE: November 16, 2023 TIME: 9:42 AM CONTACT #: [phone] [id number] NoteHNO ID: [id number] Author: JP HENNING CT Service: Cardiovascular Testing Author Type: Clinical Relay Motorman Type: Progress Notes Filed: 11/16/2023 07:55 Note Text: Summary: Pacemaker Check Received requisition for pacemaker check. Went to patient's room to check device. Patient stated that the device was checked in the ED last night. I checked the patient's hard chart and report from [employer] is in the chart. No need to repeat a device check.[facility] [id number] Telephone encounter Note * Telephone Encounter - Bria Wallace MA - 11/08/2023 8:20 AM EDT Pt notified and verbalized understanding Bria Wallace MA [facility]06-27-2024 Miscellaneous Notes* Telephone Encounter - Bria Wallace MA - 11/08/2023 8:20 AM EDT Pt notified and verbalized understanding Bria Wallace MA * Telephone Encounter - Mandeep Houser DO - 11/07/2023 8:12 PM EDT Please let patient know that her vitamin D levels are low. Needs to increase vitamin d3 intake by taking extra 1000 international unit(s) a day with a meal Also her Free t3 is too low. Need to increase the levothyroxine to 100 mcg a day for thyroid Mandeep Houser DO The following approved medication requests have been transmitted electronically. Requested Prescriptions Signed Prescriptions Disp Refills levothyroxine (LEVOXYL) 100 mcg tablet 90 tablet 1 Sig: Take 1 tablet by mouth daily before breakfast. Authorizing Provider: MANDEEP HOUSER DO * Telephone Encounter - Sanjeev Carpio RN - 11/06/2023 10:25 AM EDT Patient returned call and given provider's message below with verbalized understanding. Patient asking if pcp reviewed her lab results. Reviewed results with patient. Patient asking if pcp has any concerns regarding her abnormal results? Latest Ref Rng 10/31/2023 WBC 3.70 - 11.00 k/uL 10.82 RBC 3.90 - 5.20 m/uL 4.52 Hemoglobin 11.5 - 15.5 g/dL 13.0 Hematocrit 36.0 - 46.0 % 41.9 MCV 80.0 - 100.0 fL 92.7 MCH 26.0 - 34.0 pg 28.8 MCHC 30.5 - 36.0 g/dL 31.0 RDW-CV 11.5 - 15.0 % 13.5 Platelet Count 150 - 400 k/uL 326 MPV 9.0 - 12.7 fL 10.4 Neut% % 48.6 Abs Neut (ANC) 1.45 - 7.50 k/uL 5.24 Lymph% % 37.4 Abs Lymph 1.00 - 4.00 k/uL 4.05 (H) Camas% % 9.1 Abs Camas <0.87 k/uL 0.99 (H) Eosin% % 3.1 Abs Eosin <0.46 k/uL 0.34 Baso% % 1.2 Abs Baso <0.11 k/uL 0.13 (H) Immature Gran % % 0.6 IMMATURE GRANS (ABS) <0.10 k/uL 0.07 NRBC /100 WBC 0.0 Absolute nRBC <0.01 k/uL <0.01 DTYPE Auto Iron 41 - 186 ug/dL 51 TIBC 232 - 386 ug/dL 321 Transferrin Saturation 15.0 - 57.0 % 15.9 Vitamin D 25 Hydroxy 31.0 - 80.0 ng/mL 30.4 (L) Magnesium 1.7 - 2.3 mg/dL 2.2 CRP <0.9 mg/dL 0.8 TSH 0.270 - 4.200 mIU/L 4.200 Free T4 0.9 - 1.7 ng/dL 1.3 Free T3 2.3 - 4.1 pg/mL 2.1 (L) Legend: (H) High (L) Low * Telephone Encounter - Merly Gomez OCCA - 11/06/2023 10:14 AM EDT TC no answer. Left VM to return call. BETTY Wells * Telephone Encounter - Mandeep Houser DO - 11/06/2023 7:24 AM EDT Please inform patient that CT of her brain is overall stable as below. Can consider follow up with Neurologist for opinion if symptoms worsen Mandeep Houser DO IMPRESSION: No CT evidence of acute intracranial abnormality/hemorrhage Mild degree supratentorial chronic microvascular ischemic changes. Axial image 10, focal area decreased attenuation right insular cortex most consistent with chronic microvascular ischemic changes. documented in this encounterK[facility] History of Present illness Narrative* Mandeep Houser DO - 11/07/2023 8:36 PM EDT CC: Sandra Schmitz is a 78 year old female who presents to the office for acute back pain HPI: Acute back pain, started yesterday with significant mid to lower back pain. Has been up doing a lotaround her home. Otherwise doesn't know what started or triggered her symptoms, no new bowel or bladder changes. Pain is worse when moving from sitting to standing or with standing or walking. No trauma that she is aware of. Pain is severe, has been taking tylenol and using ice and heating pad without relief of symptoms. She is not able to take NSAIDs. Has been doing a lot of new exercise with cardiac rehab PAST MEDICAL HISTORY Diagnosis Date Acute acalculous cholecystitis 05/30/2020 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 09/22/2020 Acute on chronic systolic CHF (congestive heart failure) ([facility]) 05/03/2020 Aspiration pneumonia ([facility]) 05/30/2020 Chest pain 05/03/2020 Chest pressure 01/23/2013 Chronic diastolic congestive heart failure ([facility]) 02/14/2021 Clostridium difficile diarrhea 09/28/2020 Complete uterovaginal prolapse Cystocele, midline Essential hypertension 06/14/2020 Homozygous Factor V Leiden mutation ([facility]) 05/03/2020 Hypothyroidism IBS (irritable bowel syndrome) 01/23/2013 Palpitation CHRONIC Post-operative state 05/24/2020 Rectocele 05/25/2020 Shortness of breath 05/03/2020 Status post laparoscopic hysterectomy 05/30/2020 Tubular adenoma of colon 12/09/2020 Uterine prolapse 05/03/2020 PAST SURGICAL HISTORY Procedure Laterality Date COLONOSCOPY 01/07/2015 COLONOSCOPY 12/05/2021 repeat in 5 years COLONOSCOPY GEN ANES 12/06/2009 X3 LAST ONE IN 2009 EGD 11/08/2012 EGD 12/05/2021 PAST SURGICAL HISTORY OF 05/14/1999 left foot bunionectomy w/screws PAST SURGICAL HISTORY OF 05/14/1981 ectopic w/tube removal PAST SURGICAL HISTORY OF 2009 CYST REMOVED FROM UTERUS PAST SURGICAL HISTORY OF 05/24/2020 TVH, partial colpectomy, anterior colporrhaphy, Dennis transobturator midurethral sling, cystourethroscopy, rectocele repair with perineorrhaphy, laparoscopic lysis of adhesions and excision of bilateral adnexal structures PAST SURGICAL HISTORY OF 09/07/2020 Laparoscopic cholecystectomy with intraoperative cholangiograms. Dr. Ragsdale Current Outpatient Medications Medication Sig HYDROcodone-acetaminophen (NORCO) 5-325 mg per tablet Take 1 tablet by mouth every 8 hours as needed for pain for up to 7 days. predniSONE (DELTASONE) 10 mg tablet Take 4 tabs daily for 3 days, then 2 tabs daily for 3 days, then 1 tab daily for 3 days with food. levothyroxine (LEVOXYL) 100 mcg tablet Take 1 tablet by mouth daily before breakfast. losartan (COZAAR) 25 mg tablet Take 1 tablet by mouth once daily. furosemide (LASIX) 20 mg tablet Take 1 tablet by mouth once daily. metoprolol succinate ER (TOPROL XL) 25 mg 24 hr tablet Take 1 tablet by mouth daily at bedtime. acetaminophen (TYLENOL) 500 mg tablet Take 2 tablets by mouth every 8 hours as needed for pain. cyanocobalamin (VITAMIN B-12) 1,000 mcg tab Take 1 tablet by mouth once daily. Cholecalciferol, Vitamin D3, 50 mcg (2,000 unit) cap Take 2 capsules by mouth once daily. aspirin, enteric coated (ECOTRIN LOW STRENGTH) 81 mg EC tablet Take 1 tablet by mouth once daily. Current Facility-Administered Medications Medication Dose Route Frequency perflutren lipid microspheres 1.3 mL in NaCl (PF) 0.9% 10 mL injection (DEFINITY) INTRAVENOUS DIRECTED PRN sodium chloride 0.9 % (flush) 10 mL (BD POSIFLUSH) 10 mL INTRAVENOUS DIRECTED PRN ALLERGIES Allergen Reactions Eimlio Inhibitors Intolerance Short of breath, symptoms of heart failure Beta-Blockers (Beta* Intolerance Short of breath, symptoms of heart failure Augmentin [Amoxicil* GI Upset Codeine Mental Status Change Patient felt like she was made out of lead Lipitor [Atorvastat* Myalgia Muscle aches Sulfa (Sulfonamide * Intolerance Amlodipine Intolerance lightheaded Social History Tobacco Use Smoking status: Former Types: Cigarettes Quit date: 10/22/2002 Years since quittin.0 Smokeless tobacco: Never Vaping Use Vaping Use: Never used Substance Use Topics Alcohol use: No Drug use: No ROS: See HPI PE: There were no vitals taken for this visit. Gen: A&OX3, she appears uncomfortable HEENT: PERRLA, EOMs intact b/l, nares without drainage, pharynx without erythema, exudate, lesions,or drainage. Uvula midline. Neck: No LAD, no thyromegaly, no meningismus. CV: RRR, no murmur Lungs: CTA b/l, no wheezing Skin: No rashes, lesions, or wounds on exposed skin. Pain left>right mid and lower lumbar laterally and into lumbar spine area, no bony TTP, impairedROM No edema legs, normal pulses ASSESSMENT/PLAN: 1. Acute midline low back pain without sciatica - ICD9: 724.2, ICD10: M54.50 Xrays as ordered Start on prednisone Pierpont for severe pain, If xrays are without any signs of compression fracture, then okay to start PT - HYDROCODONE 5 MG-ACETAMINOPHEN 325 MG TABLET - PREDNISONE 10 MG TABLET - CONSULT TO PHYSICAL THERAPY - XR LUMBAR GENERAL 3V AP/LAT/L5-S1 Mandeep Houser DO Return if no improvement. Follow up with Mandeep Houser DO. To ER if develops chest pain, shortness of breat. Discussed risks, benefits, alternatives, and potential side effects of medications. Patient/Guardian expressed understanding and agreed with the plan. See patient instructions. Mandeep Houser DO [address] [place] [address] documented in [facility] Telephone encounter Note * Telephone Encounter - Mandeep Houser DO - 11/07/2023 8:12 PM EDT Please let patient know that her vitamin D levels are low. Needs to increase vitamin d3 intake by taking extra 1000 international unit(s) a day with a meal Also her Free t3 is too low. Need to increase the levothyroxine to 100 mcg a day for thyroid Mandeep Houser DO The following approved medication requests have been transmitted electronically. Requested Prescriptions Signed Prescriptions Disp Refills levothyroxine (LEVOXYL) 100 mcg tablet 90 tablet 1 Sig: Take 1 tablet by mouth daily before breakfast. Authorizing Provider: HOUSERMANDEEP HAUSER DO [facility] Telephone encounter Note* Telephone Encounter - Petrona Lechuga RN - 11/07/2023 1:03 PM EDT Spoke with patient. Given message from provider's office. Patient verbalizes understanding. Scheduled. Petrona Lechuga RN [facility] Miscellaneous Notes* Telephone Encounter - Petrona Lechuga RN - 11/07/2023 1:03 PM EDT Spoke with patient. Given message from provider's office. Patient verbalizes understanding. Scheduled. Petrona Lechuga RN * Telephone Encounter - Mandeep Houser DO - 11/07/2023 12:36 PM EDT Ok for her to come in at 6 pm tonight for an appointment Mandeep Houser DO * Telephone Encounter - Mane Pennington LPN - 11/07/2023 10:36 AM EDT Patient calling asking for an OMT appt having back and hip problems. Patient said her hip went out on her. Please advise documented in this [facility]24 Telephone encounter Note * Telephone Encounter - Mandeep Houser DO - 11/07/2023 12:36 PM EDT Ok for her to come in at 6 pm tonight for an appointment Mandeep Houser DO [facility] Telephone encounter Note* Telephone Encounter - Mane Pennington LPN - 11/07/2023 10:36 AM EDT Patient calling asking for an OMT appt having back and hip problems. Patient said her hip went out on her. Please advise [facility] Telephone encounter Note* Telephone Encounter - Sanjeev Carpio RN - 11/06/2023 10:25 AM EDT Patient returned call and given provider's message below with verbalized understanding. Patient asking if pcp reviewed her lab results. Reviewed results with patient. Patient asking if pcp has any concerns regarding her abnormal results? Latest Ref Rng 10/31/2023 WBC 3.70 - 11.00 k/uL 10.82 RBC 3.90 - 5.20 m/uL 4.52 Hemoglobin 11.5 - 15.5 g/dL 13.0 Hematocrit 36.0 - 46.0 % 41.9 MCV 80.0 - 100.0 fL 92.7 MCH 26.0 - 34.0 pg 28.8 MCHC 30.5 - 36.0 g/dL 31.0 RDW-CV 11.5 - 15.0 % 13.5 Platelet Count 150 - 400 k/uL 326 MPV 9.0 - 12.7 fL 10.4 Neut% % 48.6 Abs Neut (ANC) 1.45 - 7.50 k/uL 5.24 Lymph% % 37.4 Abs Lymph 1.00 - 4.00 k/uL 4.05 (H) Camas% % 9.1 Abs Camas <0.87 k/uL 0.99 (H) Eosin% % 3.1 Abs Eosin <0.46 k/uL 0.34 Baso% % 1.2 Abs Baso <0.11 k/uL 0.13 (H) Immature Gran % % 0.6 IMMATURE GRANS (ABS) <0.10 k/uL 0.07 NRBC /100 WBC 0.0 Absolute nRBC <0.01 k/uL <0.01 DTYPE Auto Iron 41 - 186 ug/dL 51 TIBC 232 - 386 ug/dL 321 Transferrin Saturation 15.0 - 57.0 % 15.9 Vitamin D 25 Hydroxy 31.0 - 80.0 ng/mL 30.4 (L) Magnesium 1.7 - 2.3 mg/dL 2.2 CRP <0.9 mg/dL 0.8 TSH 0.270 - 4.200 mIU/L 4.200 Free T4 0.9 - 1.7 ng/dL 1.3 Free T3 2.3 - 4.1 pg/mL 2.1 (L) Legend: (H) High (L) Low [facility] Telephone encounter Note* Telephone Encounter - Merly Gomez OCCA - 11/06/2023 10:14 AM EDT TC no answer. Left VM to return call. BETTY Wells [facility] Telephone encounter Note* Telephone Encounter - Mandeep Houser DO - 11/06/2023 7:24 AM EDT Please inform patient that CT of her brain is overall stable as below. Can consider follow up with Neurologist for opinion if symptoms worsen Mandeep Houser DO IMPRESSION: No CT evidence of acute intracranial abnormality/hemorrhage Mild degree supratentorial chronic microvascular ischemic changes. Axial image 10, focal area decreased attenuation right insular cortex most consistent with chronic microvascular ischemic changes. T [facility]-20-[facility] History of Present illness Narrative* Kirstin Stevens RT(R) - 11/01/2023 3:00 PM EDT Radiology Service Progress Note PATIENT NAME: Sandra Schmitz DATE OF SERVICE: November 01, 2023 TIME: 3:05 PM PATIENT IDENTITY VERIFICATION COMPLETED USING TWO (2) IDENTIFIERS: Name and Date of confirmedby patient verbally. FALL SCREENING: Has the patient had 2 falls in the last year or 1 fall with injury or currently using an Ambulatory Assistive Device (Walker, Cane, Wheelchair, Crutches, etc.)? No PATIENT GENDER DATA: Female. status: : No status: NO. PATIENT RELEVANT IMPLANT DATA REVIEWED: Not Applicable PATIENT PRESENTS WITH AN IMPLANTABLE OR ATTACHED MEDICAL SALES: No RADIOLOGY DEPARTMENT: CT; Exam(s) Completed: Brain PERIPHERAL IV DATA: Not applicable SIGNED BY: RT Reyes(Marlee) November 01, 2023 3:05 PM documented in this encounterK[facility]-20-2024 NoteHNO ID: [id number] Author: KIRSTIN STEVENS RT(Marlee) Service: Radiology Author Type: Technologist Type: Progress Notes Filed: 11/01/2023 15:05 Note Text: Radiology Service Progress Note PATIENT NAME: Sandra Schmitz DATE OF SERVICE: November 01, 2023 TIME: 3:05 PM PATIENT IDENTITY VERIFICATION COMPLETED USING TWO (2) IDENTIFIERS: Name and Date of confirmed by patient verbally. FALL SCREENING: Has the patient had 2 falls in the last year or 1 fall with injury or currently using an Ambulatory Assistive Device (Walker, Cane, Wheelchair, Crutches, etc.)? No PATIENT GENDER DATA: Female. status: : No status: NO. PATIENT RELEVANT IMPLANT DATA REVIEWED: Not Applicable PATIENT PRESENTS WITH AN IMPLANTABLE OR ATTACHED MEDICAL SALES: No RADIOLOGY DEPARTMENT: CT; Exam(s) Completed: Brain PERIPHERAL IV DATA: Not applicable SIGNED BY: RT Reyes(R) November 01, 2023 3:05 [facility]06-20-2024 History of Present illness Narrative* Mercedes Vera APRN.DIRECTOR OF DONOR RELATIONS - 11/01/2023 9:30 AM EDT Images from the original note were not included. [facility] Department of Cardiovascular Medicine SECTION OF CARDIAC PACING and ELECTROPHYSIOLOGY OUTPATIENT VISIT DATE November 01, 2023 OUTPATIENT VISIT TYPE ESTABLISHED PRIMARY CARE PHYSICIAN: Mandeep Houser [address] [place] [address] CHIEF COMPLAINT: follow up s/p CUT PLUG PACKER-D HISTORY OF PRESENT ILLNESS: Ms. Schmitz is a 78 year old female who presents today for followed by Dr. Wells, Dr. Wellington, Dr. Greenfield ([facility]), Dr. Oneill, non ischemic cardiomyopathy, chronic HFrEF (2019, 07-12-23: EF 26%), s/p CUT PLUG PACKER-D (July 20, 2023, [employer]), non occlusive CAD ([facility]: ), Other PMH of hypertension, hyperlipidemia, family h/o CAD, hypothyroid, factor V leiden mutation, IBS, h/o gout. She states since the pacemaker warmth feeling over the site, when she moves her shoulder protrudes outward, bending over feels falling forward, when lies on left side can be bothersome, sometimes episodes of pain, wants to make sure its ok Evaluated by primary care provider, has noticed difficulty with word finding, progressively worse, has discontinue the entresto, jardiance due to symptomatic hypotension She denies chest pain, shortness of breath, orthopnea, cough, edema, palpitations, PND, lightheadedness or syncope. PAST CARDIAC HISTORY: see below PAST MEDICAL HISTORY Diagnosis Date Acute acalculous cholecystitis 05/30/2020 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 09/22/2020 Acute on chronic systolic CHF (congestive heart failure) ([facility]) 05/03/2020 Aspiration pneumonia ([facility]) 05/30/2020 Chest pain 05/03/2020 Chest pressure 01/23/2013 Chronic diastolic congestive heart failure ([facility]) 02/14/2021 Clostridium difficile diarrhea 09/28/2020 Complete uterovaginal prolapse Cystocele, midline Essential hypertension 06/14/2020 Homozygous Factor V Leiden mutation ([facility]) 05/03/2020 Hypothyroidism IBS (irritable bowel syndrome) 01/23/2013 Palpitation CHRONIC Post-operative state 05/24/2020 Rectocele 05/25/2020 Shortness of breath 05/03/2020 Status post laparoscopic hysterectomy 05/30/2020 Tubular adenoma of colon 12/09/2020 Uterine prolapse 05/03/2020 PAST SURGICAL HISTORY Procedure Laterality Date COLONOSCOPY 01/07/2015 COLONOSCOPY 12/05/2021 repeat in 5 years COLONOSCOPY GEN ANES 12/06/2009 X3 LAST ONE IN 2009 EGD 11/08/2012 EGD 12/05/2021 PAST SURGICAL HISTORY OF 05/14/1999 left foot bunionectomy w/screws PAST SURGICAL HISTORY OF 05/14/1981 ectopic w/tube removal PAST SURGICAL HISTORY OF 2009 CYST REMOVED FROM UTERUS PAST SURGICAL HISTORY OF 05/24/2020 TVH, partial colpectomy, anterior colporrhaphy, Dennis transobturator midurethral sling, cystourethroscopy, rectocele repair with perineorrhaphy, laparoscopic lysis of adhesions and excision of bilateral adnexal structures PAST SURGICAL HISTORY OF 09/07/2020 Laparoscopic cholecystectomy with intraoperative cholangiograms. Dr. Ragsdale SOCIAL HISTORY Social History Tobacco Use Smoking status: Former Types: Cigarettes Quit date: 10/22/2002 Years since quittin.0 Smokeless tobacco: Never Vaping Use Vaping Use: Never used Substance Use Topics Alcohol use: No Drug use: No FAMILY HISTORY Problem Relation Age of Onset Blood Disease Mother Coronary Artery Disease Mother Cancer Mother lung Blood Disease Father Coronary Artery Disease Father Heart Father pacemaker Diabetes Father Breast Cancer Sister younger sis. COPD Brother Hypertension Brother Heart disease Brother Coronary Artery Disease Maternal Grandmother Ischemic Heart Disease Maternal Grandfather Coronary Artery Disease Maternal Grandfather Coronary Artery Disease Daughter ALLERGIES: ALLERGIES Allergen Reactions Emilio Inhibitors Intolerance Short of breath, symptoms of heart failure Beta-Blockers (Beta* Intolerance Short of breath, symptoms of heart failure Augmentin [Amoxicil* GI Upset Codeine Mental Status Change Patient felt like she was made out of lead Lipitor [Atorvastat* Myalgia Muscle aches Sulfa (Sulfonamide * Intolerance Amlodipine Intolerance lightheaded MEDICATIONS: losartan (COZAAR) 25 mg tablet^Take 1 tablet by mouth once daily.^Disp: 30 tablet^Rfl: 3 furosemide (LASIX) 20 mg tablet^Take 1 tablet by mouth once daily.^Disp: 90 tablet^Rfl: 1 metoprolol succinate ER (TOPROL XL) 25 mg 24 hr tablet^Take 1 tablet by mouth daily at bedtime.^Disp: 90 tablet^Rfl: 3 levothyroxine (LEVOXYL) 88 mcg tablet^Take 1 tablet by mouth daily before breakfast.^Disp: 90 tablet^Rfl: 2 acetaminophen (TYLENOL) 500 mg tablet^Take 2 tablets by mouth every 8 hours as needed for pain.^Disp: ^Rfl: cyanocobalamin (VITAMIN B-12) 1,000 mcg tab^Take 1 tablet by mouth once daily.^Disp: 30 tablet^Rfl:2 Cholecalciferol, Vitamin D3, 50 mcg (2,000 unit) cap^Take 2 capsules by mouth once daily.^Disp: ^Rfl: aspirin, enteric coated (ECOTRIN LOW STRENGTH) 81 mg EC tablet^Take 1 tablet by mouth once daily.^Disp: ^Rfl: 0 REVIEW OF SYSTEMS: GENERAL: Negative for: Weight loss or gain, Fever or Chills, Weakness and Sleep difficulties. NECK: Negative for: Swelling, Pain, Stiffness RESPIRATORY: Negative for: Cough, Blood in Sputum, Shortness of breath, Wheezing, Apnea GASTROINTESTINAL: Negative for: Trouble swallowing, Heartburn, Change in bowel habits, Blood in stool, Dark black stools MUSCULOSKELETAL: Negtive for: Muscle or joint pain, stiffness, Joint swelling NEUROLOGIC/PSYCHIATRIC: Negative for: Weakness, Paralysis, Numbness, Tingling, Tremor, Nervousness or anxiety, Depressed mood, Memory loss SKIN: Negative for: Rash, Itching HEMATOLOGICAL/LYMPHATIC: Negative for: Easy bruising, Easy bleeding ENDOCRINE: Negative for: Heat or Cold Intolerance, Excessive Sweating, Frequent Urination, FrequentThirst PHYSICAL EXAMINATION: General: Well appearing, in no acute distress, speaking in complete sentences. Neck: prominent jugular venous distention, no carotid bruits, carotids have a normal upstroke Lungs: Clear to auscultation bilaterally, no wheezing or rhonchi. Heart: Regular rhythm, paced, S1, S2 normal, no S3, no S4, no heaves, no rub and no murmur. left chest device present no swelling, no discoloration, no drainage Abdomen: Soft, nontender, bowel sounds normal Extremities: No peripheral edema . Grade 2/4 distal pulses bilaterally. Neuro: Oriented to person, place and time, alert, cooperative CARDIOVASCULAR MEDICINE TESTING: Reviewed VS, labs, previous cardiac testing Latest Ref Rng 07/24/2023 10/15/2023 10/31/2023 WBC 3.70 - 11.00 k/uL 13.45 (H) 9.89 10.82 RBC 3.90 - 5.20 m/uL 4.31 4.32 4.52 Hemoglobin 11.5 - 15.5 g/dL 12.9 12.7 13.0 Hematocrit 36.0 - 46.0 % 40.8 40.6 41.9 MCV 80.0 - 100.0 fL 94.7 94.0 92.7 MCH 26.0 - 34.0 pg 29.9 29.4 28.8 MCHC 30.5 - 36.0 g/dL 31.6 31.3 31.0 RDW-CV 11.5 - 15.0 % 15.0 13.4 13.5 Platelet Count 150 - 400 k/uL 230 353 326 MPV 9.0 - 12.7 fL 10.8 10.4 10.4 Neut% % 62.7 56.2 48.6 Abs Neut (ANC) 1.45 - 7.50 k/uL 8.45 (H) 5.55 5.24 Lymph% % 23.0 31.7 37.4 Abs Lymph 1.00 - 4.00 k/uL 3.09 3.14 4.05 (H) Camas% % 8.6 7.3 9.1 Abs Camas <0.87 k/uL 1.15 (H) 0.72 0.99 (H) Eosin% % 3.4 3.0 3.1 Abs Eosin <0.46 k/uL 0.46 (H) 0.30 0.34 Baso% % 1.0 1.1 1.2 Abs Baso <0.11 k/uL 0.13 (H) 0.11 (H) 0.13 (H) Immature Gran % % 1.3 0.7 0.6 IMMATURE GRANS (ABS) <0.10 k/uL 0.17 (H) 0.07 0.07 NRBC /100 WBC 0.0 0.0 0.0 Absolute nRBC <0.01 k/uL <0.01 <0.01 <0.01 DTYPE Auto Auto Auto Latest Ref Rng 09/20/2023 10/15/2023 Protein, Total 6.3 - 8.0 g/dL 7.4 Albumin 3.9 - 4.9 g/dL 4.0 Calcium 8.5 - 10.2 mg/dL 9.5 9.9 Bilirubin, Total 0.2 - 1.3 mg/dL 0.4 Alkaline Phosphatase 34 - 123 U/L 67 AST 13 - 35 U/L 22 ALT 7 - 38 U/L 10 Glucose 74 - 99 mg/dL 95 74 BUN 7 - 21 mg/dL 22 (H) 23 (H) Creatinine 0.58 - 0.96 mg/dL 0.84 0.84 Sodium 136 - 144 mmol/L 140 139 Potassium 3.7 - 5.1 mmol/L 3.9 4.9 Chloride 97 - 105 mmol/L 105 102 CO2 22 - 30 mmol/L 26 27 Anion Gap 9 - 18 mmol/L 9 10 eGFR >=60 mL/min/1.73m 72 72 Latest Ref Rng 07/10/2023 07/13/2023 08/22/2023 NT Pro BNP <450 pg/mL 3,171 (H) 2,522 (H) 3,243 (H) Latest Ref Rng 05/03/2020 07/10/2023 ALESSIO High Sensitivity <12 ng/L 17 (H) 24 (H) ALESSIO High Sensitivity 14 (H) 25 (H) ALESSIO High Sensitivity 25 (H) Latest Ref Rng 07/24/2023 TSH 0.270 - 4.200 mIU/L 2.430 Free T4 0.9 - 1.7 ng/dL 1.5 Free T3 2.3 - 4.1 pg/mL 2.0 (L) EC11-01-23: NSR, V'64, RICHI: 124ms, QTc: 449ms, LBBB, paced ventricular Device check: 10-29-23 Normal Remote: No Events * Normal Device Function * Alerts or events: None * Battery: , 11.58 yrs * Sensing, impedance and thresholds reviewed * Programmed parameters reviewed * Presenting rhythm reviewed: /CHUTE GREASER * Heart Rate Histograms reviewed * No significant changes noted Device check: 09-19-23 MULTI CHAMBER ICD REMOTE EVALUATION: PRESENTING EGM: /LVP BATTERY STATUS: Estimated time remaining to YOLI is 11.7 years COUNTERS SINCE: 08/07/23 ATRIAL ARRHYTHMIAS: There have been no atrial detections. VENTRICULAR ARRHYTHMIAS: There have been no ventricular detections. LEAD MEASUREMENTS: Sensing is appropriate. Review of the lead impedance trends are normal. OTHER DIAGNOSTICS: RA pacing <0.1%. total V pacing 97.9%. Adaptive CUT PLUG PACKER shows BiV pacing 6.8%, LV only pacing 93.2%. CxR: 3-5-24 Cardiomegaly. No acute process seen Echocardiogram 07/12/2023: - Exam indication: Chest Pain - The left ventricle is severely dilated. Left ventricular systolic function is severely decreased.EF = 26 5% (2D biplane). Grade II left ventricular diastolic dysfunction. - The right ventricle is normal in size. Right ventricular systolic function is normal. - There is mild to moderate (1+ - 2+) mitral valve regurgitation. - There is mild (1+) tricuspid valve regurgitation. - There is mild (1+) aortic valve regurgitation. - There is mild to moderate (1+ - 2+) pulmonic valve regurgitation. - Wall motion abnormalities as above. - Exam was compared with the prior echocardiographic exam performed on 09/21/2022. There is no significant change. Pharmacological Nuclear Stress Testing 07/11/2023: 1. SPECT Perfusion Study: Normal Perfusion but abnormal EF. 2. There is no scintigraphic evidence for inducible ischemia. 3. No evidence of scarred myocardium. 4. Left ventricle is severely dilated. The left ventricle systolic function is severely decreased. 5. This is a high risk scan. Gated Stress IR:3D LVEF % 24 Cardiac Catheterization 10/2021: LMT: _ The LMT is normal. LAD: _ The LAD has moderate diffuse disease. _ The proximal LAD is narrowed 50 % - moderate diffuse disease. _ The 1st diagonal is narrowed 50 % - moderate diffuse disease. LCX: _ The Circumflex has mild diffuse disease. RAMUS: _ Ramus Status: Not Applicable. RCA: _ The RCA has mild diffuse disease. _ The proximal RCA is narrowed 20 % - mild diffuse disease. Left Ventriculogram:Dilated LV with Moderate severe LV systolic dysfunction LVEF= 30% IMPRESSION: Ms. Schmitz is a 78 year old female with a PMH of non ischemic cardiomyopathy, chronic HFrEF (2019, 07-12-23: EF 26%), s/p CUT PLUG PACKER-D (July 20, 2023, [employer]), non occlusive CAD ([facility]: ). -normotensive, ventricular pacing, no evidence per physical assessment of heart failure, her devicesite appears to be healing normally -discussed with the patient the following: remote device check completed no arrhythmia, BiV pacing 99%, appears to be healing, normal for the device to move with changes in movement upper extremities, warmth over the device site normal, no signs of infection, reassured her -remote checks every three months PLAN AND RECOMMENDATIONS: No medication changes Let us know if any changes in symptoms Follow up appointment: device check & Dr. Wellington in one year I spent 30 minutes in the visit, with more than 50% of the total [id number] time of the visit in counseling / coordination of care. CONTACT INFORMATION: Mercedes Vera APRN.TIM, 11/01/23 [facility] [address] [place] [address] documented in this encounterK[facility] History of Present illness Narrative* Mandeep Houser, - 10/31/2023 3:28 PM EDT CC: Sandra Schmitz is a 78 year old female who presents to the office for follow up and OMT HPI: Seen recently in the office by Rupali Nascimento CNP for foot pain, she was assessed and diagnosed withgout. She was treated and symptoms improved. Recently in the last 3 months had a pacemaker placed by [employer]- has upcoming follow up for check up. No chest pressure or pain or dyspnea or palpitations. HTN, well controlled, taking medication as prescribed. No CP or dyspnea- this has improved after use of pacemaker. Chronic neck and back mid and lower discomfort, myalgias, chronic, would like to have OMT today in office, this has benefitted her in the past. Word finding difficulty, sometimes difficulty with not being able to get the right words out. Has also been getting intermittent headaches, which is unusual to her. No fevers or chills. No head injuries. No LOC, no recent travel or infections. PAST MEDICAL HISTORY Diagnosis Date Acute acalculous cholecystitis 05/30/2020 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 09/22/2020 Acute on chronic systolic CHF (congestive heart failure) ([facility]) 05/03/2020 Aspiration pneumonia ([facility]) 05/30/2020 Chest pain 05/03/2020 Chest pressure 01/23/2013 Chronic diastolic congestive heart failure ([facility]) 02/14/2021 Clostridium difficile diarrhea 09/28/2020 Complete uterovaginal prolapse Cystocele, midline Essential hypertension 06/14/2020 Homozygous Factor V Leiden mutation ([facility]) 05/03/2020 Hypothyroidism IBS (irritable bowel syndrome) 01/23/2013 Palpitation CHRONIC Post-operative state 05/24/2020 Rectocele 05/25/2020 Shortness of breath 05/03/2020 Status post laparoscopic hysterectomy 05/30/2020 Tubular adenoma of colon 12/09/2020 Uterine prolapse 05/03/2020 PAST SURGICAL HISTORY Procedure Laterality Date COLONOSCOPY 01/07/2015 COLONOSCOPY 12/05/2021 repeat in 5 years COLONOSCOPY GEN ANES 12/06/2009 X3 LAST ONE IN 2009 EGD 11/08/2012 EGD 12/05/2021 PAST SURGICAL HISTORY OF 05/14/1999 left foot bunionectomy w/screws PAST SURGICAL HISTORY OF 05/14/1981 ectopic w/tube removal PAST SURGICAL HISTORY OF 2009 CYST REMOVED FROM UTERUS PAST SURGICAL HISTORY OF 05/24/2020 TVH, partial colpectomy, anterior colporrhaphy, Dennis transobturator midurethral sling, cystourethroscopy, rectocele repair with perineorrhaphy, laparoscopic lysis of adhesions and excision of bilateral adnexal structures PAST SURGICAL HISTORY OF 09/07/2020 Laparoscopic cholecystectomy with intraoperative cholangiograms. Dr. Ragsdale Social History: Social History Tobacco Use Smoking status: Former Types: Cigarettes Quit date: 10/22/2002 Years since quittin.0 Smokeless tobacco: Never Vaping Use Vaping Use: Never used Substance Use Topics Alcohol use: No Drug use: No FAMILY HISTORY Problem Relation Age of Onset Blood Disease Mother Coronary Artery Disease Mother Cancer Mother lung Blood Disease Father Coronary Artery Disease Father Heart Father pacemaker Diabetes Father Breast Cancer Sister younger sis. COPD Brother Hypertension Brother Heart disease Brother Coronary Artery Disease Maternal Grandmother Ischemic Heart Disease Maternal Grandfather Coronary Artery Disease Maternal Grandfather Coronary Artery Disease Daughter Current Outpatient prescriptions: losartan (COZAAR) 25 mg tablet^Take 1 tablet by mouth once daily.^Disp: 30 tablet^Rfl: 3 furosemide (LASIX) 20 mg tablet^Take 1 tablet by mouth once daily.^Disp: 90 tablet^Rfl: 1 metoprolol succinate ER (TOPROL XL) 25 mg 24 hr tablet^Take 1 tablet by mouth daily at bedtime.^Disp: 90 tablet^Rfl: 3 levothyroxine (LEVOXYL) 88 mcg tablet^Take 1 tablet by mouth daily before breakfast.^Disp: 90 tablet^Rfl: 2 acetaminophen (TYLENOL) 500 mg tablet^Take 2 tablets by mouth every 8 hours as needed for pain.^Disp: ^Rfl: cyanocobalamin (VITAMIN B-12) 1,000 mcg tab^Take 1 tablet by mouth once daily.^Disp: 30 tablet^Rfl:2 Cholecalciferol, Vitamin D3, 50 mcg (2,000 unit) cap^Take 2 capsules by mouth once daily.^Disp: ^Rfl: aspirin, enteric coated (ECOTRIN LOW STRENGTH) 81 mg EC tablet^Take 1 tablet by mouth once daily.^Disp: ^Rfl: 0 Allergies: ALLERGIES Allergen Reactions Emilio Inhibitors Intolerance Short of breath, symptoms of heart failure Beta-Blockers (Beta* Intolerance Short of breath, symptoms of heart failure Augmentin [Amoxicil* GI Upset Codeine Mental Status Change Patient felt like she was made out of lead Lipitor [Atorvastat* Myalgia Muscle aches Sulfa (Sulfonamide * Intolerance Amlodipine Intolerance lightheaded ROS: See HPI PE: 10/31/23 1508 BP: 150/80 Pulse: 76 Resp: 20 Temp: (!) 35.8 C (96.4 F) TempSrc: Right Tympanic Weight: 88 kg (194 lb) Gen: A&O, NAD, non-toxic appearing, Pleasant, cooperative HEENT: NT/AC, PERRLA, EOMs intact b/l, nares clear and patent b/l, pharynx without erythema, exudate or lesions. Uvula midline. MMM, EACs without erythema or debris. TMs pearly story with intact landmarks b/l. Neck: supple, No cervical LAD, no thyromegaly, no carotid bruits, suboccipital fullness right head,[id number] CV: RRR, normal S1 and S2, 1/6 RUSB soft blowing murmurs, no gallops, no rubs, Pulses 2+ and symmetric in UE and LE b/l Pacemaker in left chest wall Lungs: normal respiratory effort, CTA b/l, no wheezing or rhonchi or rales T3-10ERrSBl Left anterior pelvis Abd: soft, obese, NT, ND, +BS, no hepatosplenomegaly MS: arthritis changes, antalgic gait Neuro: CN II-XII intact b/l, strength 5/5 b/l UE and LE, DTRs 2/4 UE and LE, sensation intact. Skin: warm, dry, intact, No rashes or lesions on exposed skin. No edema. ASSESSMENT/PLAN: 1. Hypothyroidism, acquired - ICD9: 244.9, ICD10: E03.9 (primary diagnosis) - Instructed patient on importance of taking on an empty stomach either first thing in the morning or at bedtime. - continue current dose of Synthroid - THYROID STIMULATING HORMONE - T4 FREE/FREE THYROXINE - T3, FREE 2. 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 - ICD9: 274.01, ICD10: M10.072 Symptoms are improving 3. Word finding difficulty - ICD9: V40.1, ICD10: R47.[address] brain, labs as ordered, unsure cause of symptoms - VITAMIN D 25 HYDROXY - MAGNESIUM - C-REACTIVE PROTEIN - CT BRAIN WO IVCON - COMPLETE BLOOD COUNT AND DIFFERENTIAL - IRON AND TIBC 4. New onset of headaches after age 50 - ICD9: 784.0, ICD10: R51.[address] brain, labs as ordered, unsure cause of symptoms - VITAMIN D 25 HYDROXY - MAGNESIUM - C-REACTIVE PROTEIN - CT BRAIN WO IVCON - COMPLETE BLOOD COUNT AND DIFFERENTIAL - IRON AND TIBC 5. Leg cramping - ICD9: 729.82, ICD10: R25.2 Labs as ordered - VITAMIN D 25 HYDROXY - MAGNESIUM - C-REACTIVE PROTEIN - COMPLETE BLOOD COUNT AND DIFFERENTIAL - IRON AND TIBC 6. Vitamin D deficiency - ICD9: 268.9, ICD10: E55.9 Continue supplement - VITAMIN D 25 HYDROXY 7. Anemia, unspecified type - ICD9: 285.9, ICD10: D64.9 Recheck labs. - COMPLETE BLOOD COUNT AND DIFFERENTIAL - IRON AND TIBC 8. Somatic dysfunction of head region - ICD9: 739.0, ICD10: M99.00 OMT: Discussed risks, benefits, alternatives, and potential SEs of treatment. Patient wished to proceed with OMT. OMT was performed to the cervical region, thoracic region, pelvis symptoms and ribs including soft tissue, functional methods, Patient tolerated treatment well with good release, increase ROM, and decrease in pain, without complications. Instructed patient to drink plenty of water. Gentle stretches at home. 9. Somatic dysfunction of spine, cervical - ICD9: 739.1, ICD10: M99.01 OMT: Discussed risks, benefits, alternatives, and potential SEs of treatment. Patient wished to proceed with OMT. OMT was performed to the cervical region, thoracic region, pelvis symptoms and ribs including soft tissue, functional methods, Patient tolerated treatment well with good release, increase ROM, and decrease in pain, without complications. Instructed patient to drink plenty of water. Gentle stretches at home. 10. Somatic dysfunction of rib - ICD9: 739.8, ICD10: M99.08 v 11. Chronic bilateral thoracic back pain - ICD9: 724.1, 338.29, ICD10: M54.6, G89.29 OMT: Discussed risks, benefits, alternatives, and potential SEs of treatment. Patient wished to proceed with OMT. OMT was performed to the cervical region, thoracic region, pelvis symptoms and ribs including soft tissue, functional methods, Patient tolerated treatment well with good release, increase ROM, and decrease in pain, without complications. Instructed patient to drink plenty of water. Gentle stretches at home. 12. Somatic dysfunction of spine, thoracic - ICD9: 739.2, ICD10: M99.02 OMT: Discussed risks, benefits, alternatives, and potential SEs of treatment. Patient wished to proceed with OMT. OMT was performed to the cervical region, thoracic region, pelvis symptoms and ribs including soft tissue, functional methods, Patient tolerated treatment well with good release, increase ROM, and decrease in pain, without complications. Instructed patient to drink plenty of water. Gentle stretches at home. 13. Somatic dysfunction of pelvic region - ICD9: 739.5, ICD10: M99.05 OMT: Discussed risks, benefits, alternatives, and potential SEs of treatment. Patient wished to proceed with OMT. OMT was performed to the cervical region, thoracic region, pelvis symptoms and ribs including soft tissue, functional methods, Patient tolerated treatment well with good release, increase ROM, and decrease in pain, without complications. Instructed patient to drink plenty of water. Gentle stretches at home. Mandeep Houser DO To ER if develops chest pain, shortness of breath, or severe worsening of symptoms. Discussed risks, benefits, alternatives, and potential side effects of medications. Patient expressed understanding and agreed with the plan. Mandeep Houser DO [address] [place] [address] documented [facility] Telephone encounter Note * Telephone Encounter - Radha Buchanan - 10/30/2023 12:00 PM EDT Patient will call back to confirm or change appointment. Will check with daughter and sister for transportation help. Prefers [place] location with Mercedes. [facility] Miscellaneous Notes* Telephone Encounter - Radha Buchanan - 10/30/2023 12:00 PM EDT Patient will call back to confirm or change appointment. Will check with daughter and sister for transportation help. Prefers [place] location with Mercedes. * Telephone Encounter - Radha Buchanan - 10/30/2023 11:33 AM EDT Images from the original note were not included. Dilcia Pearson MD Oth[place], Amal; Shelly Briones MA Can we bring her in for visit with Mercedes (here) or Morenita Chavis at [facility] - earliest available(not urgent) Thx C documented in this encounterK[facility]06-[facility] Telephone encounter Note * Telephone Encounter - Radha Buchanan - 10/30/2023 11:33 AM EDT Images from the original note were not included. Dilcia Pearson MD Othman, Amal; Shelly Briones MA Can we bring her in for visit with Mercedes (here) or Morenita or [place] at [facility] - earliest available(not urgent) Thx C [facility]-05[facility] Telephone encounter Note* Telephone Encounter - Anni Herrera LPN - 10/17/2023 11:20 AM EDT Spoke with pt and information listed below given. Pt verbalizes understanding. Anni Herrera LPN [facility]06-05-[facility]24 Miscellaneous Notes* Telephone Encounter - Anni Herrera LPN - 10/17/2023 11:20 AM EDT Spoke with pt and information listed below given. Pt verbalizes understanding. Anni Herrera LPN * Telephone Encounter - Kelsey Costa LPN - 10/17/2023 10:19 AM EDT Message left to return call. * Telephone Encounter - Rupali Nascimento APRN.CNP - 10/17/2023 9:38 AM EDT Please call patient and let her know that lab work looks good. Uric acid level was elevated as we suspected d/t gout flare up. Continue with regimen as discussed. Kidney function is normal and stable. Take careRupali APRN.CNP documented in this encounterK[facility] Telephone encounter Note * Telephone Encounter - Kelsey Costa LPN - 10/17/2023 10:19 AM EDT Message left to return call. [facility] Work Phone: 1(306) 194-825206-05-2024 Telephone encounter Note* Telephone Encounter - Rupali Nascimento APRN.CNP - 10/17/2023 9:38 AM EDT Please call patient and let her know that lab work looks good. Uric acid level was elevated as we suspected d/t gout flare up. Continue with regimen as discussed. Kidney function is normal and stable. Take care, Rupali Nascimento APRN.DIRECTOR OF DONOR RELATIONS [facility] Telephone encounter Note* Telephone Encounter - Rupali Nascimento APRN.CNP - 10/15/2023 12:18 PM EDT Noted. Just saw patient in office and agree with below. Trial of prednisone burst x 4 days and continue with compression stockings was the recommendation. Thank you, Rupali Nascimento APRN.DIRECTOR OF DONOR RELATIONS [facility]-03[facility] Miscellaneous Notes* Telephone Encounter - Rupali Nascimento APRN.CNP - 10/15/2023 12:18 PM EDT Noted. Just saw patient in office and agree with below. Trial of prednisone burst x 4 days and continue with compression stockings was the recommendation. Thank you, Rupali Nascimento APRN.CNP * Telephone Encounter - Jyoti Josue RN - 10/15/2023 11:09 AM EDT Received TE back today and called patient with update. Patient scheduled with PCP office previously. Patient wanting to have PCP check to make sure she doesn't have gout. Dr. Del Cid is out this week. Jyoti Josue RN * Telephone Encounter - Jyoti Josue RN - 10/11/2023 9:25 AM EDT Patient calls for continued swelling/redness/warmth to left great toe. Patient reports the area is not any worse but not getting any better and asking what next steps in treatment would be. Continues to wear orthotics. Hasn't started compression stocking as she doesn't feel that is the issue. Forwarding to Dr. Mata as patient has been under his care. Reason for Disposition [1] MODERATE pain (e.g., interferes with normal activities, limping) AND [2] present > 3 days Answer Assessment - Initial Assessment Questions 1. ONSET: Over a month ago. --On-going. Not a new issue. Patient under the care of Dr. Mata. 2. LOCATION: Entire left great toe with soreness to top of foot and underneath. 3. PAIN:- MILD (1-3): doesn't interfere with normal activities to - MODERATE (4-7): interferes with normal activities (e.g., work or school) or awakens from sleep, limping 4. APPEARANCE: Swelling/redness/maybe a little bit of warmth to the great toe. Soreness to the top/bottom of foot. 5. CAUSE: Patient not certain. Reports x-rays x 2 with no findings but she knows something is wrong. Wants to know what next steps in treatment would be. 6. OTHER SYMPTOMS: No leg pain, rash, fever, numbness Protocols used: Toe [id number] documented in this encounterK[facility]06-[facility]-2024 Instructions* Patient Instructions* Rupali Nascimento APRN.DIRECTOR OF DONOR RELATIONS - 10/15/2023 11:47 AM EDT .az documented in this encounterK[facility]06-03-2024 History of Present illness Narrative* Rupali Nascimento APRN.CNP - 10/15/2023 11:40 AM EDT Chief Complaint Patient presents with: lft foot pain and swelling.: Saw Dr. Mata was seen he did x-rays states no fractures but did have surgery on this foot back in 2002 has screews and such. Wondering about gout HPI Sandra Schmitz is a 78 year old female who presents here today for Above Complaints. Sandra is an established patient of Dr. Mik DO. She is a new patient to me today. Concerns today.. Per triage from 10/10: Patient calls for continued swelling/redness/warmth to left great toe. Patient reports the area isnot any worse but not getting any better and asking what next steps in treatment would be. Continues to wear orthotics. Hasn't started compression stocking as she doesn't feel that is the issue. Forwarding to Dr. Mata as patient has been under his care. Reason for Disposition [1] MODERATE pain (e.g., interferes with normal activities, limping) AND [2] present > 3 days Answer Assessment - Initial Assessment Questions 1. ONSET: Over a month ago. --On-going. Not a new issue. Patient under the care of Dr. Mata. 2. LOCATION: Entire left great toe with soreness to top of foot and underneath. 3. PAIN:- MILD (1-3): doesn't interfere with normal activities to - MODERATE (4-7): interferes with normal activities (e.g., work or school) or awakens from sleep, limping 4. APPEARANCE: Swelling/redness/maybe a little bit of warmth to the great toe. Soreness to the top/bottom of foot. 5. CAUSE: Patient not certain. Reports x-rays x 2 with no findings but she knows something is wrong. Wants to know what next steps in treatment would be. 6. OTHER SYMPTOMS: No leg pain, rash, fever, numbness Foot pain/swelling --- Swelling and redness to L big toe x 1 month. Constant throbbing sensation. Pt feels this is gout. Pt does have hx of gout. Hx of surgery on this foot in 2002 with screw, pins, and fusion completed. No complications until recently. Has been seen by TIM Tinoco and Dr. Mata for this. X-ray x 2 have been normal. Compression stockings ordered and should be arriving at patient's house this week. No other concerns or complaints. Past medical history, appointments, medications, allergies reviewed. Previous Medical History PAST MEDICAL HISTORY Diagnosis Date Acute acalculous cholecystitis 05/30/2020 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 09/22/2020 Acute on chronic systolic CHF (congestive heart failure) ([facility]) 05/03/2020 Aspiration pneumonia ([facility]) 05/30/2020 Chest pain 05/03/2020 Chest pressure 01/23/2013 Chronic diastolic congestive heart failure ([facility]) 02/14/2021 Clostridium difficile diarrhea 09/28/2020 Complete uterovaginal prolapse Cystocele, midline Essential hypertension 06/14/2020 Homozygous Factor V Leiden mutation ([facility]) 05/03/2020 Hypothyroidism IBS (irritable bowel syndrome) 01/23/2013 Palpitation CHRONIC Post-operative state 05/24/2020 Rectocele 05/25/2020 Shortness of breath 05/03/2020 Status post laparoscopic hysterectomy 05/30/2020 Tubular adenoma of colon 12/09/2020 Uterine prolapse 05/03/2020 Previous Surgical History PAST SURGICAL HISTORY Procedure Laterality Date COLONOSCOPY 01/07/2015 COLONOSCOPY 12/05/2021 repeat in 5 years COLONOSCOPY GEN ANES 12/06/2009 X3 LAST ONE IN 2009 EGD 11/08/2012 EGD 12/05/2021 PAST SURGICAL HISTORY OF 05/14/1999 left foot bunionectomy w/screws PAST SURGICAL HISTORY OF 05/14/1981 ectopic w/tube removal PAST SURGICAL HISTORY OF 2009 CYST REMOVED FROM UTERUS PAST SURGICAL HISTORY OF 05/24/2020 TVH, partial colpectomy, anterior colporrhaphy, Dennis transobturator midurethral sling, cystourethroscopy, rectocele repair with perineorrhaphy, laparoscopic lysis of adhesions and excision of bilateral adnexal structures PAST SURGICAL HISTORY OF 09/07/2020 Laparoscopic cholecystectomy with intraoperative cholangiograms. Dr. Ragsdale Family History FAMILY HISTORY Problem Relation Age of Onset Blood Disease Mother Coronary Artery Disease Mother Cancer Mother lung Blood Disease Father Coronary Artery Disease Father Heart Father pacemaker Diabetes Father Breast Cancer Sister younger sis. COPD Brother Hypertension Brother Heart disease Brother Coronary Artery Disease Maternal Grandmother Ischemic Heart Disease Maternal Grandfather Coronary Artery Disease Maternal Grandfather Coronary Artery Disease Daughter Patient Allergies ALLERGIES Allergen Reactions Emilio Inhibitors Intolerance Short of breath, symptoms of heart failure Beta-Blockers (Beta* Intolerance Short of breath, symptoms of heart failure Augmentin [Amoxicil* GI Upset Codeine Mental Status Change Patient felt like she was made out of lead Lipitor [Atorvastat* Myalgia Muscle aches Sulfa (Sulfonamide * Intolerance Amlodipine Intolerance lightheaded Current Medications Current Outpatient Medications on File Prior to Visit Medication Sig furosemide (LASIX) 20 mg tablet Take 1 tablet by mouth once daily. metoprolol succinate ER (TOPROL XL) 25 mg 24 hr tablet Take 1 tablet by mouth daily at bedtime. guaiFENesin (MUCINEX) 600 mg 12 hr tablet Take 2 tablets by mouth two times a day for 14 days. losartan (COZAAR) 25 mg tablet Take 1 tablet by mouth once daily. levothyroxine (LEVOXYL) 88 mcg tablet Take 1 tablet by mouth daily before breakfast. acetaminophen (TYLENOL) 500 mg tablet Take 2 tablets by mouth every 8 hours as needed for pain. cyanocobalamin (VITAMIN B-12) 1,000 mcg tab Take 1 tablet by mouth once daily. Cholecalciferol, Vitamin D3, 50 mcg (2,000 unit) cap Take 2 capsules by mouth once daily. aspirin, enteric coated (ECOTRIN LOW STRENGTH) 81 mg EC tablet Take 1 tablet by mouth once daily. Current Facility-Administered Medications on File Prior to Visit Medication perflutren lipid microspheres 1.3 mL in NaCl (PF) 0.9% 10 mL injection (DEFINITY) sodium chloride 0.9 % (flush) 10 mL (BD POSIFLUSH) Social History Social History Tobacco Use Smoking status: Former Types: Cigarettes Quit date: 10/22/2002 Years since quittin.9 Smokeless tobacco: Never Vaping Use Vaping Use: Never used Substance Use Topics Alcohol use: No Drug use: No REVIEW OF SYSTEMS: as above Reviewed relevant PMHx, PSHx, Social Hx, current medications and allergies. Review of Symptoms REVIEW OF SYSTEMS See HPI. EXAM: BP 130/68 (BP Site: Left Arm, BP Position: Sitting, BP Cuff Size: Large Adult) Pulse 68 Resp 14 Wt 88.1 kg (194 lb 3.2 oz) SpO2 94% BMI 34.40 kg/m General Appearance: Well appearing, alert, in no acute distress, well-hydrated, well nourished.. Skin: Skin color, texture, turgor normal, no suspicious rashes or lesions. Extremities: No deformities, edema, skin discoloration, clubbing or cyanosis. Good capillary refill. , Positive findings: joint location: + MTP joint on L big toe with redness, swelling, and pain. Peripheral Pulses: Normal, Capillary refill <2secs, strong peripheral pulses. Health Maintenance List Hepatitis C Screening Never done BP Controlled (<130/80) Never done Advance Directive Discussion Never done Behavioral Health Screening Never done DTaP,Tdap,Td Vaccine(1 - Tdap) due on 10/14/2024 RSV Vaccine(1 - 1-dose 60+ series) due on 10/14/2024 Shingrix Vaccine(1 of 2) due on 10/14/2024 LDL Cholesterol due on 09/19/2024 Annual PCP Team Chronic Disease Visit due on 09/30/2024 Diabetes Screening due on 09/19/2026 Bone Density Screening Completed Pneumococcal Vaccine: 65+ Completed Mammogram Screening Discontinued Influenza Vaccine Discontinued Colorectal Cancer Screening Discontinued Covid-19 Vaccine Discontinued ASSESSMENT/PLAN: 1. Localized swelling of left foot - ICD9: 782.2, ICD10: R22.42 (primary diagnosis) Concern for gout. Uric acid blood test. Labs as ordered to look at kidney function. Short term prednisone burst x [address] Mata recommendations of compression stockings. - PREDNISONE 20 MG TABLET - COMPREHENSIVE METABOLIC PANEL - URIC ACID - COMPLETE BLOOD COUNT AND DIFFERENTIAL 2. Foot pain, left - ICD9: 729.5, ICD10: M79.672 See above. - PREDNISONE 20 MG TABLET - COMPREHENSIVE METABOLIC PANEL - URIC ACID - COMPLETE BLOOD COUNT AND DIFFERENTIAL 3. 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 - ICD9: 274.01, ICD10: M10.072 See above. - PREDNISONE 20 MG TABLET - COMPREHENSIVE METABOLIC PANEL - URIC ACID - COMPLETE BLOOD COUNT AND DIFFERENTIAL RTO as needed. Prescription instructions reviewed with patient as applicable. Potential red flag symptoms discussed with the patient. Reviewed appropriate action plan to take if red flag symptoms occur. Patient agreeable to treatment plan. Rupali Correa APRN.DIRECTOR OF DONOR RELATIONS [address] [place] [address] documented in this encounterK[facility]06-[facility] Telephone encounter Note * Telephone Encounter - Jyoti Josue RN - 10/15/2023 11:09 AM EDT Received TE back today and called patient with update. Patient scheduled with PCP office previously. Patient wanting to have PCP check to make sure she doesn't have gout. Dr. Del Cid is out this week. Jyoti Josue RN [facility] Telephone encounter Note* Telephone Encounter - Jyoti Josue RN - 10/11/2023 9:25 AM EDT Patient calls for continued swelling/redness/warmth to left great toe. Patient reports the area is not any worse but not getting any better and asking what next steps in treatment would be. Continues to wear orthotics. Hasn't started compression stocking as she doesn't feel that is the issue. Forwarding to Dr. Mata as patient has been under his care. Reason for Disposition [1] MODERATE pain (e.g., interferes with normal activities, limping) AND [2] present > 3 days Answer Assessment - Initial Assessment Questions 1. ONSET: Over a month ago. --On-going. Not a new issue. Patient under the care of Dr. Mata. 2. LOCATION: Entire left great toe with soreness to top of foot and underneath. 3. PAIN:- MILD (1-3): doesn't interfere with normal activities to - MODERATE (4-7): interferes with normal activities (e.g., work or school) or awakens from sleep, limping 4. APPEARANCE: Swelling/redness/maybe a little bit of warmth to the great toe. Soreness to the top/bottom of foot. 5. CAUSE: Patient not certain. Reports x-rays x 2 with no findings but she knows something is wrong. Wants to know what next steps in treatment would be. 6. OTHER SYMPTOMS: No leg pain, rash, fever, numbness Protocols used: Toe [id number] [facility] Telephone encounter Note* Telephone Encounter - Sridevi Leyva - 10/11/2023 9:07 AM EDT Patient has been identified by name and date of : Patient phones for refill(s): Requested Prescriptions Pending Prescriptions Disp Refills furosemide (LASIX) 20 mg tablet 30 tablet 2 Sig: Take 1 tablet by mouth once daily. Date of last office visit in primary care: 10/01/2023 Date of next office visit in primary care: 10/31/2023 Please advise. Thank you. Sridevi Leyva. [facility]05-30-2024 Miscellaneous Notes* Telephone Encounter - Sridevi Leyva - 10/11/2023 9:07 AM EDT Patient has been identified by name and date of : Patient phones for refill(s): Requested Prescriptions Pending Prescriptions Disp Refills furosemide (LASIX) 20 mg tablet 30 tablet 2 Sig: Take 1 tablet by mouth once daily. Date of last office visit in primary care: 10/01/2023 Date of next office visit in primary care: 10/31/2023 Please advise. Thank you. Sridevi Leyva. documented in this encounterK[facility] History of Present illness Narrative* Pili Wells MD - 10/02/2023 4:00 PM EDT [facility] [place] Department of Cardiovascular Medicine TELEPHONE VISIT (audio only) PROGRESS NOTE This is a telephone encounter initiated for an established patient. The patient, parent or guardianis not originating from a related Evaluation & Management service provided within the previous 7 days nor leading to an Evaluation & Management service or procedure within the next 24 hours or soonest available appointment. I have communicated my name and active licensure. The patient's identity and physical location wereverified at the time of this visit. Either the patient or their legal abrasives sales representative has been informed of the risks and benefits of -- and alternatives to -- treatment through a remote evaluation andconsents to proceed with the evaluation remotely. Sandra Schmitz has consented to this telephone encounter. Persons Present: patient Chief Complaint/Reason: Follow up HPI: Sandra Schmitz is a 78 year old female with a medical history that includes non-ischemic CM, HTN, Hypothyroidism, LBBB s/p CUT PLUG PACKER-D who is referred to me for heart failure management. Sandra Schmitz was initially diagnosed with non-ischemic CM ~ 4 yrs ago and was doing well on losartan and metoprolol. She had progressive sxs of dyspnea on exertion, therefore she was started on entresto and farxiga and her sxs persisted and she was admitted locally in [place] and then transferredto for CUT PLUG PACKER consideration. Interval History: Sandra Schmitz was last seen in this clinic on 08/08/23. Since the last visit Sandra Schmitz, she reports overall feeling well however she feels like her device is moving in her chest. She states that when she is moving or reaches over to the right side she feels the device move as well or get pushed to the right side. She also states that on the device incision site she feels a knot there. Notenderness, no erythema, no swelling. She has also started cardiac rehab - has been doing it for ~ 1 month. She is using bicycle, stepping etc and is doing well with it. She states that he got numbness/tingling and had to stop the jardiance. She currently has a URI sxs. No dyspnea on exertion, no orthopnea, no PND, no peripheral edema, no lightheadedness, no syncope, no chest pain/pressure/discomfort. Activity/Exercise: doing cardiac rehab. Home BP: have been good -- 110s-120s/70s. HR: CV Problem List/Medical History: Non- Ischemic Cardiomyopathy/Heart Failure with reduced ejection fraction: Echo 06/2023: LVEF 26%, LVEDd 5.8cm, RV wnl Echo 09/2022: LVEF 30%, LVEDd 4.6cm, RV wnl Echo 02/2022: LVEF 30%, RV wnl Echo 04/2020: LVEF 40%, LVEdd 4.8cm. LBBB: chronic. S/p CUT PLUG PACKER 07/2023 Non-obstructive CAD: stable, ischemic testing recently with no ischemia or infarction. 06/2023 Nuc SPECT: no ischemia or infarction. 10/2021 Cath: mod LAD, D1 prox 40%, mild RCA disease dominant, EF 35%. Hx of HTN: BP have been stable Data Reviewed: Device interrogation (09/19/23) OTHER DIAGNOSTICS: RA pacing <0.1%. total V pacing 97.9%. Adaptive CUT PLUG PACKER shows BiV pacing 6.8%, LV only pacing 93.2%. Assessment: GDMT: - BB: toprol XL 12.5mg daily - ACEI/ARB/ARNI: losartan 25mg daily - MRA: no - SGLT2: unable to tolerate it - Vasodilators: no - Device: CUT PLUG PACKER - Cardiomems: no - Other: lasix 20mg daily. IMPRESSION In summary, Sandra Schmitz is a 78 year old being managed today for the following issues: 1. Non-ischemic Cardiomyopathy/chronic systolic heart failure: NYHA functional class IIb, Stage c heart failure. She reports feeling much improved, having more energy. GDMT: increase toprol XL 25mg daily, continue losartan 25mg daily, unable tolerate SLGT2i. Discussed addition of MRA - will hold off currently. Can re- discuss starting it after repeat echo. Labs reviewed Cr: 0.84, K 3.9. Echocardiogram in [place] next month and following with Dr. Castro. 2. HTN: BP well controlled currently. 3. LBBB s/p CUT PLUG PACKER: Will send message to Dr. Wellington given her device concerns. Thank you for allowing me to participate in the care of your patient. In the interim do not hesitate to reach out to me with questions or concerns. I personally spent 27 minutes in total time involved in the management and care of this patient. Wediscussed natural history of disease, current treatment options, and future potential treatment options. We discussed diet, exercise, other non-medical management as above. Pili Wells MD [facility] [place] [id number] Appointment: [phone] documented in this encounterKettering [facility]-20-2024 Instructions* Patient Instructions* Alejandrina Harvey APRN.DIRECTOR OF DONOR RELATIONS - 10/01/2023 12:41 PM EDT Take the Mucinex twice daily for 14 days. Start the Zpak today. Use the tessalon perles for your cough if they work. Get in at least 60-80oz of water daily. Ok for Tylenol/ibuprofen if necessary. Let me know in the next week if you're not improving. documented in this encounterKettering [facility]-20-2024 History of Present illness Narrative* Alejandrina Harvey APRN.TIM - 10/01/2023 12:23 PM EDT Chief Complaint Patient presents with: Acute Visit: Cough, runny nose, fatigue x 09/28 HPI Sandra Schmitz is a 78 year old female who presents here today for Above Complaints.. Sx started on 09/27 with sore throat. Sore throat is for the most part gone right now. Is congested and drainage down the back of her throat. Occasional productive cough. Has used Benadryl which hasn't been helpful. Knows she had a fever yesterday because it was so hot out and she was cold and needing a sweatshirt. No known ill contacts. Past medical history, appointments, medications, allergies reviewed. Previous Medical History PAST MEDICAL HISTORY Diagnosis Date Acute acalculous cholecystitis 05/30/2020 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 09/22/2020 Acute on chronic systolic CHF (congestive heart failure) ([facility]) 05/03/2020 Aspiration pneumonia ([facility]) 05/30/2020 Chest pain 05/03/2020 Chest pressure 01/23/2013 Chronic diastolic congestive heart failure ([facility]) 02/14/2021 Clostridium difficile diarrhea 09/28/2020 Complete uterovaginal prolapse Cystocele, midline Essential hypertension 06/14/2020 Homozygous Factor V Leiden mutation ([facility]) 05/03/2020 Hypothyroidism IBS (irritable bowel syndrome) 01/23/2013 Palpitation CHRONIC Post-operative state 05/24/2020 Rectocele 05/25/2020 Shortness of breath 05/03/2020 Status post laparoscopic hysterectomy 05/30/2020 Tubular adenoma of colon 12/09/2020 Uterine prolapse 05/03/2020 Previous Surgical History PAST SURGICAL HISTORY Procedure Laterality Date COLONOSCOPY 01/07/2015 COLONOSCOPY 12/05/2021 repeat in 5 years COLONOSCOPY GEN ANES 12/06/2009 X3 LAST ONE IN 2009 EGD 11/08/2012 EGD 12/05/2021 PAST SURGICAL HISTORY OF 05/14/1999 left foot bunionectomy w/screws PAST SURGICAL HISTORY OF 05/14/1981 ectopic w/tube removal PAST SURGICAL HISTORY OF 2009 CYST REMOVED FROM UTERUS PAST SURGICAL HISTORY OF 05/24/2020 TVH, partial colpectomy, anterior colporrhaphy, Dennis transobturator midurethral sling, cystourethroscopy, rectocele repair with perineorrhaphy, laparoscopic lysis of adhesions and excision of bilateral adnexal structures PAST SURGICAL HISTORY OF 09/07/2020 Laparoscopic cholecystectomy with intraoperative cholangiograms. Dr. Ragsdale Family History FAMILY HISTORY Problem Relation Age of Onset Blood Disease Mother Coronary Artery Disease Mother Cancer Mother lung Blood Disease Father Coronary Artery Disease Father Heart Father pacemaker Diabetes Father Breast Cancer Sister younger sis. COPD Brother Hypertension Brother Heart disease Brother Coronary Artery Disease Maternal Grandmother Ischemic Heart Disease Maternal Grandfather Coronary Artery Disease Maternal Grandfather Coronary Artery Disease Daughter Patient Allergies ALLERGIES Allergen Reactions Emilio Inhibitors Intolerance Short of breath, symptoms of heart failure Beta-Blockers (Beta* Intolerance Short of breath, symptoms of heart failure Augmentin [Amoxicil* GI Upset Codeine Mental Status Change Patient felt like she was made out of lead Lipitor [Atorvastat* Myalgia Muscle aches Sulfa (Sulfonamide * Intolerance Amlodipine Intolerance lightheaded Current Medications Current Outpatient Medications on File Prior to Visit Medication Sig metoprolol succinate ER (TOPROL XL) 25 mg 24 hr tablet Take 0.5 tablets by mouth daily at bedtime. losartan (COZAAR) 25 mg tablet Take 1 tablet by mouth once daily. levothyroxine (LEVOXYL) 88 mcg tablet Take 1 tablet by mouth daily before breakfast. furosemide (LASIX) 20 mg tablet Take 1 tablet by mouth once daily. acetaminophen (TYLENOL) 500 mg tablet Take 2 tablets by mouth every 8 hours as needed for pain. cyanocobalamin (VITAMIN B-12) 1,000 mcg tab Take 1 tablet by mouth once daily. Cholecalciferol, Vitamin D3, 50 mcg (2,000 unit) cap Take 2 capsules by mouth once daily. aspirin, enteric coated (ECOTRIN LOW STRENGTH) 81 mg EC tablet Take 1 tablet by mouth once daily. omeprazole (PRILOSEC) 20 mg capsule Take 1 capsule by mouth daily before breakfast. 1/2 hr before meal. (Patient not taking: Reported on 09/05/2023) empagliflozin (JARDIANCE) 10 mg tablet Take 1 tablet by mouth daily with breakfast. (Patient not taking: Reported on 10/01/2023) Current Facility-Administered Medications on File Prior to Visit Medication perflutren lipid microspheres 1.3 mL in NaCl (PF) 0.9% 10 mL injection (DEFINITY) sodium chloride 0.9 % (flush) 10 mL (BD POSIFLUSH) Social History Social History Tobacco Use Smoking status: Former Types: Cigarettes Quit date: 10/22/2002 Years since quittin.9 Smokeless tobacco: Never Vaping Use Vaping Use: Never used Substance Use Topics Alcohol use: No Drug use: No Review of Symptoms REVIEW OF SYSTEMS See HPI, otherwise negative EXAM: BP 118/84 (BP Site: Left Arm, BP Position: Sitting, BP Cuff Size: Regular Adult) Pulse 80 Temp 36.2 C (97.1 F) Resp 16 Wt 87.5 kg (192 lb 12.8 oz) SpO2 95% BMI 34.15 kg/m General Appearance: ill-appearing, alert, in no acute distress, well-hydrated, well nourished.. Head: Facial tenderness. Eyes: Anicteric sclera. Pupils are equally round and reactive to light. Extraocular movements are intact. . Ears: External ears normal, canals clear. Nose/Sinuses: Positive findings: mucosa erythematous and swollen. Oropharynx: Lips, mucosa, and tongue normal, teeth and gums normal, oropharynx normal. Neck: Supple, no adenopathy; thyroid symmetric, normal size, no bruits. Lungs: Lungs clear to auscultation. No wheezing, rhonchi, rales.. Heart: RRR without murmur, gallop, or rubs. No ectopy. Lymph Nodes: No cervical lymphadenopathy and No supraclavicular lymphadenopathy. Psychiatric: pleasant, cooperative. Health Maintenance List Hepatitis C Screening Never done BP Controlled (<130/80) Never done DTaP,Tdap,Td Vaccine(1 - Tdap) Never done Shingrix Vaccine(1 of 2) Never done RSV Vaccine(1 - 1-dose 60+ series) Never done Advance Directive Discussion Never done Behavioral Health Screening Never done Annual PCP Team Chronic Disease Visit due on 09/12/2024 LDL Cholesterol due on 09/19/2024 Diabetes Screening due on 09/19/2026 Bone Density Screening Completed Pneumococcal Vaccine: 65+ Completed Mammogram Screening Discontinued Influenza Vaccine Discontinued Colorectal Cancer Screening Discontinued Covid-19 Vaccine Discontinued Data reviewed Previous records, office notes ASSESSMENT/PLAN: 1. Acute non-recurrent pansinusitis - ICD9: 461.8, ICD10: J01.40 - Will begin treatment with as per antibiotic as written, see orders - The patient should also be given OTC decongestants prn for the first 5-7 days of treatment. - Supportive care with plenty of fluids, rest, and analgesia prn. Follow up in 1 week if necessary. - AZITHROMYCIN 250 MG TABLET - GUAIFENESIN ER 600 MG TABLET, EXTENDED RELEASE 12 HR Alejandrina Harvey APRN.TIM documented in this encounterKettering [facility]-2024 Telephone encounter Note * Telephone Encounter - Margarita Villalba LPN - 10/01/2023 10:17 AM EDT Patient notified of results and provider's instructions. Patient verbalizes understanding. Margarita Villalba LPN [facility] Work Phone: 1(361) 950-105405-20-2024 Miscellaneous Notes* Telephone Encounter - Margarita Villalba LPN - 10/01/2023 10:17 AM EDT Patient notified of results and provider's instructions. Patient verbalizes understanding. Margarita Villalba LPN * Telephone Encounter - Oliverio Mata - 09/30/2023 8:03 AM EDT Please call patient to inform her that xrays do not show any stress fracture. Continue with good supportive shoes and/or insert in shoes Oliverio Mata DPM documented in this encounterKettering [facility]05-19-2024 Telephone encounter Note * Telephone Encounter - Oliverio Mata - 09/30/2023 8:03 AM EDT Please call patient to inform her that xrays do not show any stress fracture. Continue with good supportive shoes and/or insert in shoes Oliverio Mata DPM [facility] Work Phone: 1(468) 897-225605-17-2024 NoteMULTI CHAMBER ICD REMOTE EVALUATION: PRESENTING EGM: /LVP BATTERY STATUS: Estimated time remaining to YOLI is 11.7 years COUNTERS SINCE: 08/07/23 ATRIAL ARRHYTHMIAS: There have been no atrial detections. VENTRICULAR ARRHYTHMIAS: There have been no ventricular detections. LEAD MEASUREMENTS: Sensing is appropriate. Review of the lead impedance trends are normal. OTHER DIAGNOSTICS: RA pacing <0.1%. total V pacing 97.9%. Adaptive CUT PLUG PACKER shows BiV pacing 6.8%, LV only pacing 93.2%. FOLLOW UP: Continue 3 month remote transmissions and yearly in-clinic interrogations. Amy Louis RN NOTE TO PROVIDERS: CARD Flowsheets contain detailed device programming and testing data. Paceart/Interrogation PDF can be found under CARDIAC DATA AND REPORT, Scanned Documents section.[id number] Telephone encounter Note* Telephone Encounter - Thuy Aguirre APRN.CNP - 09/25/2023 11:28 AM EDT Called and spoke with patient to review recent cholesterol results. Her LDL remains elevated at 120. I again recommended treatment with either pravastatin, PCSK9i, or bempedoic acid given her known nonobstructive CAD. At this time she is not ready to start lipid-lowering therapy as she feels she has too much going on and would like to do some more research before deciding on an option. She will let us know once she has made her decision. She additionally has stopped the Jardiance on Sunday as she felt it was causing tingling in her feet and a headache. She resumed Lasix. Her symptoms have resolved since stopping the Jardiance. She is scheduled to see advanced heart failure Dr. Wells 10/01 carlito. Thuy Aguirre APRN.CNP [facility]05-14-2024 Miscellaneous Notes* Telephone Encounter - Thuy Aguirre APRN.CNP - 09/25/2023 11:28 AM EDT Called and spoke with patient to review recent cholesterol results. Her LDL remains elevated at 120. I again recommended treatment with either pravastatin, PCSK9i, or bempedoic acid given her known nonobstructive CAD. At this time she is not ready to start lipid-lowering therapy as she feels she has too much going on and would like to do some more research before deciding on an option. She will let us know once she has made her decision. She additionally has stopped the Jardiance on Sunday as she felt it was causing tingling in her feet and a headache. She resumed Lasix. Her symptoms have resolved since stopping the Jardiance. She is scheduled to see advanced heart failure Dr. Wells 10/01 carlito. Thuy Aguirre APRN.CNP documented in this encounterCleveland [id number] History of Present illness Narrative* Nuria Whitten RT(R) - 09/24/2023 11:10 AM EDT Radiology Service Progress Note PATIENT NAME: Sandra Schmitz DATE OF SERVICE: September 24, 2023 TIME: 11:01 AM PATIENT IDENTITY VERIFICATION COMPLETED USING TWO (2) IDENTIFIERS: Name and Date of confirmedby patient verbally. FALL SCREENING: Has the patient had 2 falls in the last year or 1 fall with injury or currently using an Ambulatory Assistive Device (Walker, Cane, Wheelchair, Crutches, etc.)? No PATIENT GENDER DATA: Female. status: : No status: NO. PATIENT RELEVANT IMPLANT DATA REVIEWED: Yes PATIENT PRESENTS WITH AN IMPLANTABLE OR ATTACHED MEDICAL SALES: No RADIOLOGY DEPARTMENT: General X-ray: Exam(s) Completed: Lower Extremity X- Ray(s): Foot, Left PERIPHERAL IV DATA: Not applicable SIGNED BY: RT Daily(R) September 24, 2023 11:01 AM documented in this encounterKettering Health [facility]05-13-2024 History of Present illness Narrative* Oliverio Mata - 09/24/2023 10:45 AM EDT Initial Podiatric Office Visit: Chief Complaint: This 78 year old female who presents with chief complaint:left foot pain and swelling HPI Patient presents to clinic for evaluation of left foot Complains of one month history of pain and swelling to left first interspace. She states that the left great toe/ 1st interspace feels tight and swollen. She did feel a pop recently. Had xray and xrays were unremarkable. Just started cardiac rehab PAIN EVALUATION 09/24/2023 1026 Pain Level: 3 Pain Location: Foot-Left Description: Pressure Duration Amount of Time: 1 Duration Units: Months Frequency: Intermittent Intervention/Comfort measure: Relaxation Hemoglobin A1C (%) Date Value 07/21/2022 5.7 09/14/2021 5.7 PCP: Mandeep Houser DO PAST MEDICAL HISTORY Diagnosis Date Acute acalculous cholecystitis 05/30/2020 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 09/22/2020 Acute on chronic systolic CHF (congestive heart failure) ([facility]) 05/03/2020 Aspiration pneumonia ([facility]) 05/30/2020 Chest pain 05/03/2020 Chest pressure 01/23/2013 Chronic diastolic congestive heart failure ([facility]) 02/14/2021 Clostridium difficile diarrhea 09/28/2020 Complete uterovaginal prolapse Cystocele, midline Essential hypertension 06/14/2020 Homozygous Factor V Leiden mutation ([facility]) 05/03/2020 Hypothyroidism IBS (irritable bowel syndrome) 01/23/2013 Palpitation CHRONIC Post-operative state 05/24/2020 Rectocele 05/25/2020 Shortness of breath 05/03/2020 Status post laparoscopic hysterectomy 05/30/2020 Tubular adenoma of colon 12/09/2020 Uterine prolapse 05/03/2020 Current Outpatient Medications Medication Sig losartan (COZAAR) 25 mg tablet Take 1 tablet by mouth once daily. empagliflozin (JARDIANCE) 10 mg tablet Take 1 tablet by mouth daily with breakfast. (Patient takingdifferently: Take 10 mg by mouth daily with breakfast. On hold) levothyroxine (LEVOXYL) 88 mcg tablet Take 1 tablet by mouth daily before breakfast. metoprolol succinate ER (TOPROL XL) 25 mg 24 hr tablet Take 0.5 tablets by mouth daily at bedtime. furosemide (LASIX) 20 mg tablet Take 1 tablet by mouth once daily. acetaminophen (TYLENOL) 500 mg tablet Take 2 tablets by mouth every 8 hours as needed for pain. cyanocobalamin (VITAMIN B-12) 1,000 mcg tab Take 1 tablet by mouth once daily. Cholecalciferol, Vitamin D3, 50 mcg (2,000 unit) cap Take 2 capsules by mouth once daily. aspirin, enteric coated (ECOTRIN LOW STRENGTH) 81 mg EC tablet Take 1 tablet by mouth once daily. omeprazole (PRILOSEC) 20 mg capsule Take 1 capsule by mouth daily before breakfast. 1/2 hr before meal. (Patient not taking: Reported on 09/05/2023) Current Facility-Administered Medications Medication Dose Route Frequency perflutren lipid microspheres 1.3 mL in NaCl (PF) 0.9% 10 mL injection (DEFINITY) INTRAVENOUS DIRECTED PRN sodium chloride 0.9 % (flush) 10 mL (BD POSIFLUSH) 10 mL INTRAVENOUS DIRECTED PRN ALLERGIES Allergen Reactions Emilio Inhibitors Intolerance Short of breath, symptoms of heart failure Beta-Blockers (Beta* Intolerance Short of breath, symptoms of heart failure Augmentin [Amoxicil* GI Upset Codeine Mental Status Change Patient felt like she was made out of lead Lipitor [Atorvastat* Myalgia Muscle aches Sulfa (Sulfonamide * Intolerance Amlodipine Intolerance lightheaded PAST SURGICAL HISTORY Procedure Laterality Date COLONOSCOPY 01/07/2015 COLONOSCOPY 12/05/2021 repeat in 5 years COLONOSCOPY GEN ANES 12/06/2009 X3 LAST ONE IN 2009 EGD 11/08/2012 EGD 12/05/2021 PAST SURGICAL HISTORY OF 05/14/1999 left foot bunionectomy w/screws PAST SURGICAL HISTORY OF 05/14/1981 ectopic w/tube removal PAST SURGICAL HISTORY OF 2009 CYST REMOVED FROM UTERUS PAST SURGICAL HISTORY OF 05/24/2020 TVH, partial colpectomy, anterior colporrhaphy, Dennis transobturator midurethral sling, cystourethroscopy, rectocele repair with perineorrhaphy, laparoscopic lysis of adhesions and excision of bilateral adnexal structures PAST SURGICAL HISTORY OF 09/07/2020 Laparoscopic cholecystectomy with intraoperative cholangiograms. Dr. Ragsdale FAMILY HISTORY Problem Relation Age of Onset Blood Disease Mother Coronary Artery Disease Mother Cancer Mother lung Blood Disease Father Coronary Artery Disease Father Heart Father pacemaker Diabetes Father Breast Cancer Sister younger sis. COPD Brother Hypertension Brother Heart disease Brother Coronary Artery Disease Maternal Grandmother Ischemic Heart Disease Maternal Grandfather Coronary Artery Disease Maternal Grandfather Coronary Artery Disease Daughter Social History Tobacco Use Smoking status: Former Types: Cigarettes Quit date: 10/22/2002 Years since quittin.9 Smokeless tobacco: Never Vaping Use Vaping Use: Never used Substance Use Topics Alcohol use: No Drug use: No REVIEW OF SYSTEMS GENERAL: Negative for Malaise, significant weight loss, fever RESPIRATORY: Negative for cough, wheezing and shortness of breath CARDIOVASCULAR: Negative for chest pain, leg swelling and palpitations GI: Negative for abdominal discomfort, blood in stools or black stools and change in bowel habits : Negative for dysuria, frequency and incontinence MUSCULOSKELETAL: Negative for joint pain or swelling, back pain, and muscle pain. SKIN: Negative for lesions, rash, and itching. HEMATOLOGY/LYMPHOLOGY Negative for prolonged bleeding, bruising easily, and swollen nodes. ENDOCRINE: Negative for cold or heat intolerance, polyuria, polydipsia and goiter. NEURO: negative Physical Exam: Constitutional: Pt is a well developed 78 year old female who is alert, oriented and cooperative Eyes: Following during examination. No redness or drainage. Respiratory: RR normal and nonlabored. Even breathing. No evidence of distress or shortness of breath. Psychology: Patient is engaged during conversation. Normal affect and mood. Does not appear depressed or anxious during encounter. Vascular: Dorsalis pedis and posterior tibial pulses palpable as b/l Capillary Fill time < 5 seconds to digits 1-5 b/l Skin temperature warm to warm proximal to distal b/l Hair growth present to digits Neurological: intact light touch/epicritic sensation b/l intact protective sensation no significant neurological deficits Dermatological: Nails 1-5 b/l appear normal. Webspaces clean and dry 1-4 b/l. Skin appears well hydrated and supple. good color, texture, turgor. No open lesions present. No callosities present. Musculoskeletal/Orthopaedic: Patient has pain to palpation of left 2nd metatarsal shaft Mild swelling across the top of her foot AJ ROM is decreased with knee extended and flexed 1st MPJ is decreased when loaded and no pain or crepitus are noted with ROM. MTJ, STJ are full and free of pain and crepitus. +5/5 muscle strength dorsiflexion, plantarflexion, inversion, eversion b/l Radiographs: 3 views left foot reviewed from september 12. No acute fracture. S/p bunionectomy with two screw fixation. Fused 2nd pipj ASSESSMENT: (X50.3XXA) Repetitive stress injury (primary encounter diagnosis) (I87.2) Venous insufficiency PLAN: 1. History and physical examination performed. 2. XR reviewed with patient and interpreted today 3. Patient does have pain and swelling of left first interspace/ 2nd metatarsal shaft. Pain is not horrible. Would have her continue with custom orthotics. Will repeat xrays to assure no stress fracture as she recently started cardiac rehab. If stress fracture were present, would need to place her in boot. 4. Will order compression stockings for lower extremity swelling. Can use while exercise if permissible by cardiology Oliverio Mata DPM Podiatry [address] [facility] [address] Dept: [phone] Dept * Sincere Berger RN - 09/24/2023 10:21 AM EDT AMB ROOMING INTAKE FLOWSHEET DATA Pain Pain Level: 3 Pain Location: Foot-Left Description: Pressure Duration Amount of Time: 1 Duration Units: Months Frequency: Intermittent Intervention/Comfort measure: Relaxation Patient presents with: Left Foot - Established Patient, Pain, Swelling Patient presents for Left foot pain and swelling between 1st and 2nd toe for almost a month. Xr wasdone 09/13/23/ Hx of surgery with screws to that foot. Patient is in cardiac rehab where she walks [facility], started that on 08/31/23 three times a week. [facility] Telephone encounter Note * Telephone Encounter - Ira Welch RN - 09/19/2023 5:43 PM EDT Spoke with patient and talked her through sending remote transmission. Pt states that she feels okay other than mild discomfort, denies any shortness of breath, internal chest pain or feeling unwell. Ira Welch RN [facility]05-08-[facility]24 Miscellaneous Notes* Telephone Encounter - Ira Welch RN - 09/19/2023 5:43 PM EDT Spoke with patient and talked her through sending remote transmission. Pt states that she feels okay other than mild discomfort, denies any shortness of breath, internal chest pain or feeling unwell. Ira Welch RN * Telephone Encounter - Julia Dickey RN - 09/19/2023 5:22 PM EDT Called patient who describes pacemaker moving forward as if it shifted out of place and then wentback in. She also describes some discomfort near her bra strap now. She feels as if it is now more dimensional than it was. She does not have any pain, swelling or redness. Spoke to Morenita who said to reach out to device clinic to request a remote transmission. Explained to patient that a remote transmission will be requested and she asks if that is the [place] thing that sits on the table and turns green. She states she has never had to send one before and isn't sure how to do it so someone will need to walk her through it. I told her to watch for our call. * Telephone Encounter - Concetta Prado PSS - 09/17/2023 1:38 PM EDT Patient stated that while she bent over to weed she felt her pacemaker move forward. Pt had a cardio therapy appt today 09/17/23 and they stated everything was connected that she should contact her press operator assistant. Please review. JOHN Rowe documented in this [facility] Telephone encounter Note * Telephone Encounter - Julia Dickey RN - 09/19/2023 5:22 PM EDT Called patient who describes pacemaker moving forward as if it shifted out of place and then wentback in. She also describes some discomfort near her bra strap now. She feels as if it is now more dimensional than it was. She does not have any pain, swelling or redness. Spoke to Morenita who said to reach out to device clinic to request a remote transmission. Explained to patient that a remote transmission will be requested and she asks if that is the [place] thing that sits on the table and turns green. She states she has never had to send one before and isn't sure how to do it so someone will need to walk her through it. I told her to watch for our call. [facility] Telephone encounter Note* Telephone Encounter - Sanjeev Carpio RN - 09/18/2023 8:22 AM EDT Phoned patient and given provider's message below with verbalized understanding. Patient agreeable and will call back to schedule appt. [facility] Miscellaneous Notes* Telephone Encounter - Sanjeev Carpio RN - 09/18/2023 8:22 AM EDT Phoned patient and given provider's message below with verbalized understanding. Patient agreeable and will call back to schedule appt. * Telephone Encounter - Alejandrina Harvey APRN.CNP - 09/18/2023 6:57 AM EDT Her foot xray looks stable, nothing acutely concerning. Yes, please assist her to schedule with for further assessment. Alejandrina Harvey APRN.DIRECTOR OF DONOR RELATIONS * Telephone Encounter - Sanjeev Carpio RN - 09/17/2023 1:11 PM EDT Patient asking provider to review and advise on xray left foot results, and asking if she should schedule appt with Dr. Mata, as the left foot is sill swollen some today. documented in this encounterK[facility] Telephone encounter Note * Telephone Encounter - Alejandrina Harvey APRN.CNP - 09/18/2023 6:57 AM EDT Her foot xray looks stable, nothing acutely concerning. Yes, please assist her to schedule with for further assessment. Alejandrina Harvey APRN.TIM [facility] Telephone encounter Note* Telephone Encounter - Dianna Merino RN - 09/17/2023 1:54 PM EDT Pt was outside and bent over to fix flower in flower bed and felt her pacemaker move down. When standing back up felt pacemaker go back into place. Not experiencing any dizziness, pain, palpitations.Went to therapy (cardiac rehab) this morning and nurse said everything looked okay when connected to the monitor. Pt already contacted Dr. Wells's office to informed them about her pacemaker. Advised pt to reach out to EP doctor Dr. Wellington too. [facility] Miscellaneous Notes* Telephone Encounter - Dianna Merino RN - 09/17/2023 1:54 PM EDT Pt was outside and bent over to fix flower in flower bed and felt her pacemaker move down. When standing back up felt pacemaker go back into place. Not experiencing any dizziness, pain, palpitations.Went to therapy (cardiac rehab) this morning and nurse said everything looked okay when connected to the monitor. Pt already contacted Dr. Wells's office to informed them about her pacemaker. Advised pt to reach out to EP doctor Dr. Wellington too. documented in this encounterK[facility] Telephone encounter Note * Telephone Encounter - Concetta Prado PSS - 09/17/2023 1:38 PM EDT Patient stated that while she bent over to weed she felt her pacemaker move forward. Pt had a cardio therapy appt today 09/17/23 and they stated everything was connected that she should contact her press operator assistant. Please review. JOHN Rowe [facility]05-06-[facility] Telephone encounter Note* Telephone Encounter - Sanjeev Carpio RN - 09/17/2023 1:11 PM EDT Patient asking provider to review and advise on xray left foot results, and asking if she should schedule appt with Dr. Mata, as the left foot is sill swollen some today. [facility] History of Present illness Narrative* Nuria Whitten RT(R) - 09/13/2023 11:40 AM EDT Radiology Service Progress Note PATIENT NAME: Sandra Schmitz DATE OF SERVICE: September 13, 2023 TIME: 11:37 AM PATIENT IDENTITY VERIFICATION COMPLETED USING TWO (2) IDENTIFIERS: Name and Date of confirmedby patient verbally. FALL SCREENING: Has the patient had 2 falls in the last year or 1 fall with injury or currently using an Ambulatory Assistive Device (Walker, Cane, Wheelchair, Crutches, etc.)? No PATIENT GENDER DATA: Female. status: : No status: NO. PATIENT RELEVANT IMPLANT DATA REVIEWED: Yes PATIENT PRESENTS WITH AN IMPLANTABLE OR ATTACHED MEDICAL SALES: No RADIOLOGY DEPARTMENT: General X-ray: Exam(s) Completed: Lower Extremity X- Ray(s): Foot, Left PERIPHERAL IV DATA: Not applicable SIGNED BY: RT Daily(R) September 13, 2023 11:37 AM documented in this encounterK[facility] History of Present illness Narrative* Alejandrina Harvey APRN.TIM - 09/13/2023 10:56 AM EDT Chief Complaint Patient presents with: Follow Up: Reports swelling of toe has improved, Top of left foot swollen now HPI Sandra Schmitz is a 78 year old female who presents here today for Above Complaints.. Per visit with myself on 08/22/2023: HPI Sandra Schmitz is a 78 year old female who presents here today for Above Complaints. UTI-a little bit of burning with urination for about 4 days. Has been drinking a lot of fontanez juice, lemon juice for concern for gout in her left foot and wondering if this could be the cause as it does seem to be improving somewhat. Wheezy cough-moreso at nighttime, doesn't bring anything (sputum) up. Did just restart losartan. Has tolerated this in the past. Left big toe swollen and painful-for a strong week. Has 2 screws in her big toe, fusion to her left second toe. Is painful but can now get a shoe on it. Has hx of gout in this toe. Had a pacemaker placed about 1-1.5 months ago. This seems to be healing well. Has some burning to her labia. Denies discharge, itching, or pain. ASSESSMENT/PLAN: 1. Vagina, candidiasis - ICD9: 112.1, ICD10: B37.31 (primary diagnosis) - UA DIP, URINE (POC) - FLUCONAZOLE 150 MG TABLET 2. Burning with urination - ICD9: 788.1, ICD10: R30.0 Suspect vaginal candidiasis - UA DIP, URINE (POC) - FLUCONAZOLE 150 MG TABLET 3. 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 - ICD9: 274.01, ICD10: M10.072 - PREDNISONE 10 MG TABLET 4. Acute cough - ICD9: 786.2, ICD10: R05.1 Suspect LPR - OMEPRAZOLE 20 MG CAPSULE,DELAYED RELEASE 5. Laryngopharyngeal reflux (LPR) - ICD9: 478.79, ICD10: K21.9 - Discussed lifestyle modifications including losing weight, limiting caffeine, no meals three hours before sleep, and head of bed elevation - Begin treatment with Prilosec 20 mg QD - OMEPRAZOLE 20 MG CAPSULE,DELAYED RELEASE Alejandrina Harvey APRN.DIRECTOR OF DONOR RELATIONS Currently: Top of left foot just near the base of her first 2 toes is painful and swollen. Doing therapy. Has hx of pin in her big toe and fusion to second toe. Thinks she may have stepped wrong-started about 1.5 weeks ago. Hurts to walk and now hurting into the ball of her foot. M-W-F at 10:00 therapy/cardiac rehab at [facility]. Past medical history, appointments, medications, allergies reviewed. Previous Medical History PAST MEDICAL HISTORY Diagnosis Date Acute acalculous cholecystitis 05/30/2020 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 09/22/2020 Acute on chronic systolic CHF (congestive heart failure) ([facility]) 05/03/2020 Aspiration pneumonia ([facility]) 05/30/2020 Chest pain 05/03/2020 Chest pressure 01/23/2013 Chronic diastolic congestive heart failure ([facility]) 02/14/2021 Clostridium difficile diarrhea 09/28/2020 Complete uterovaginal prolapse Cystocele, midline Essential hypertension 06/14/2020 Homozygous Factor V Leiden mutation ([facility]) 05/03/2020 Hypothyroidism IBS (irritable bowel syndrome) 01/23/2013 Palpitation CHRONIC Post-operative state 05/24/2020 Rectocele 05/25/2020 Shortness of breath 05/03/2020 Status post laparoscopic hysterectomy 05/30/2020 Tubular adenoma of colon 12/09/2020 Uterine prolapse 05/03/2020 Previous Surgical History PAST SURGICAL HISTORY Procedure Laterality Date COLONOSCOPY 01/07/2015 COLONOSCOPY 12/05/2021 repeat in 5 years COLONOSCOPY GEN ANES 12/06/2009 X3 LAST ONE IN 2009 EGD 11/08/2012 EGD 12/05/2021 PAST SURGICAL HISTORY OF 05/14/1999 left foot bunionectomy w/screws PAST SURGICAL HISTORY OF 05/14/1981 ectopic w/tube removal PAST SURGICAL HISTORY OF 2009 CYST REMOVED FROM UTERUS PAST SURGICAL HISTORY OF 05/24/2020 TVH, partial colpectomy, anterior colporrhaphy, Dennis transobturator midurethral sling, cystourethroscopy, rectocele repair with perineorrhaphy, laparoscopic lysis of adhesions and excision of bilateral adnexal structures PAST SURGICAL HISTORY OF 09/07/2020 Laparoscopic cholecystectomy with intraoperative cholangiograms. Dr. Ragsdale Family History FAMILY HISTORY Problem Relation Age of Onset Blood Disease Mother Coronary Artery Disease Mother Cancer Mother lung Blood Disease Father Coronary Artery Disease Father Heart Father pacemaker Diabetes Father Breast Cancer Sister younger sis. COPD Brother Hypertension Brother Heart disease Brother Coronary Artery Disease Maternal Grandmother Ischemic Heart Disease Maternal Grandfather Coronary Artery Disease Maternal Grandfather Coronary Artery Disease Daughter Patient Allergies ALLERGIES Allergen Reactions Emilio Inhibitors Intolerance Short of breath, symptoms of heart failure Beta-Blockers (Beta* Intolerance Short of breath, symptoms of heart failure Augmentin [Amoxicil* GI Upset Codeine Mental Status Change Patient felt like she was made out of lead Lipitor [Atorvastat* Myalgia Muscle aches Sulfa (Sulfonamide * Intolerance Amlodipine Intolerance lightheaded Current Medications Current Outpatient Medications on File Prior to Visit Medication Sig losartan (COZAAR) 25 mg tablet Take 1 tablet by mouth once daily. empagliflozin (JARDIANCE) 10 mg tablet Take 1 tablet by mouth daily with breakfast. levothyroxine (LEVOXYL) 88 mcg tablet Take 1 tablet by mouth daily before breakfast. metoprolol succinate ER (TOPROL XL) 25 mg 24 hr tablet Take 0.5 tablets by mouth daily at bedtime. acetaminophen (TYLENOL) 500 mg tablet Take 2 tablets by mouth every 8 hours as needed for pain. cyanocobalamin (VITAMIN B-12) 1,000 mcg tab Take 1 tablet by mouth once daily. Cholecalciferol, Vitamin D3, 50 mcg (2,000 unit) cap Take 2 capsules by mouth once daily. aspirin, enteric coated (ECOTRIN LOW STRENGTH) 81 mg EC tablet Take 1 tablet by mouth once daily. omeprazole (PRILOSEC) 20 mg capsule Take 1 capsule by mouth daily before breakfast. 1/2 hr before meal. (Patient not taking: Reported on 09/05/2023) furosemide (LASIX) 20 mg tablet Take 1 tablet by mouth once daily. (Patient not taking: Reported on09/05/2023) Current Facility-Administered Medications on File Prior to Visit Medication perflutren lipid microspheres 1.3 mL in NaCl (PF) 0.9% 10 mL injection (DEFINITY) sodium chloride 0.9 % (flush) 10 mL (BD POSIFLUSH) Social History Social History Tobacco Use Smoking status: Former Types: Cigarettes Quit date: 10/22/2002 Years since quittin.9 Smokeless tobacco: Never Vaping Use Vaping Use: Never used Substance Use Topics Alcohol use: No Drug use: No Review of Symptoms REVIEW OF SYSTEMS See HPI, otherwise negative EXAM: BP 122/80 (BP Site: Left Arm, BP Position: Sitting, BP Cuff Size: Regular Adult) Pulse 73 Resp 16 Wt 87.4 kg (192 lb 9.6 oz) SpO2 94% BMI 34.12 kg/m General Appearance: Well appearing, alert, in no acute distress, well-hydrated, well nourished. Extremities: very slight swelling to left dorsal foot just below 1st and 2nd toes, no warmth or erythema, slightly painful to palpation, no deformity. Pedal pulses present. Musculoskeletal: very slight swelling to left dorsal foot just below 1st and 2nd toes, no warmth orerythema, slightly painful to palpation, no deformity. Pedal pulses present. Psychiatric: pleasant, cooperative. Health Maintenance List Hepatitis C Screening Never done BP Controlled (<130/80) Never done DTaP,Tdap,Td Vaccine(1 - Tdap) Never done Shingrix Vaccine(1 of 2) Never done RSV Vaccine(1 - 1-dose 60+ series) Never done Advance Directive Discussion Never done Behavioral Health Screening Never done LDL Cholesterol due on 07/22/2023 Annual PCP Team Chronic Disease Visit due on 08/21/2024 Diabetes Screening due on 08/21/2026 Bone Density Screening Completed Pneumococcal Vaccine: 65+ Completed Mammogram Screening Discontinued Influenza Vaccine Discontinued Colorectal Cancer Screening Discontinued Covid-19 Vaccine Discontinued Data reviewed Previous records, office notes ASSESSMENT/PLAN: 1. Foot pain, left - ICD9: 729.5, ICD10: M79.672 (primary diagnosis) Xray today. Patient is known to Dr. Mata, podiatry, likely will schedule with him for follow up. - XR FOOT GENERAL 3V AP/LAT/OBL LEFT 2. Localized swelling of left foot - ICD9: 782.2, ICD10: R22.42 Xray today. Patient is known to Dr. Mata, podiatry, likely will schedule with him for follow up. - XR FOOT GENERAL 3V AP/LAT/OBL LEFT Alejandrina Harvey APRN.TIM documented in this encounterK[facility]24 Instructions* Patient Instructions* Thuy Aguirre APRN.CNP - 09/05/2023 11:27 AM EDT It was great to see you today, as we discussed: 1. Continue on the Jardiance an off the Lasix for now. Let me or Dr. Wells know if you develop worsening symptoms with this. 2. Continue weighing yourself daily and let us know if you begin to gain weight off the Jardiance. 3. Fasting blood work at any [facility] lab in 2 weeks to check kidney function, electrolytes, and cholesterol 4. Given your history of nonobstructive coronary artery disease we would recommend your bad cholesterol (LDL) be <70, your most recent LDL was 137. Given your prior intolerance to Crestor and Lipitor I would recommend one of these three options to decrease cardiovascular risk 1. A very low dose Pravastatin, generally better tolerated 2. An injectable every 2 weeks (PCSK9i) such as Repatha or Praluent 3. Bempedoic acid (Nexlitol) sometimes it is difficult to get insurance coverage of this 5. Follow up with Dr. Wells 10/01 as scheduled, Dr. Castro 11/13 as scheduled and I will have the schedulers cancel your 12/[address] Oneill documented in this encounterK[facility]04-24-[facility]24 History of Present illness Narrative* Thuy Aguirre APRN.CNP - 09/05/2023 11:00 AM EDT Images from the original note were not included. [facility] Department of Cardiovascular Medicine SECTION OF CLINICAL CARDIOLOGY OUTPATIENT VISIT DATE September 05, 2023 OUTPATIENT VISIT TYPE ESTABLISHED PRIMARY CARE PHYSICIAN: Mandeep Houser [address] [place] [address] CHIEF COMPLAINT: Follow up HISTORY OF PRESENT ILLNESS: Ms. Schmitz is a 78 year old female with history of chronic HFrEF, NICM, LBBB, s/p CUT PLUG PACKER-D (07/2023), nonobstructive CAD, valvular insufficiency, HTN, hypothyroidism, and factor V Leiden mutation who presents today for a cardiovascular medicine follow-up visit. She has historically received her general cardiology care in [place] with Dr. Oneill however after recent admission to [facility] 06/2023 she is looking to establish her cardiac care here. She was last seen by advanced heart failure, Dr. Wells on 08/07/2023 at which time she was doing wellwith no new or worsening cardiac complaints. At that time she was started on losartan with plan forrepeat blood work in 2 weeks and addition of Jardiance at that time if able. Since her last office visit she began taking Jardiance on Sunday and discontinued her Lasix as advised at that time. She reports since starting the Jardiance she feels jittery and like she can feelher heart pounding when she lays down. She is participating in cardiac rehab in [facility]. She isweighing herself daily and weights have been stable at 188 lbs. She has not been monitoring her heart rate or blood pressure at home since this is being monitored so closely at cardiac rehab. She denies any chest pain, shortness of breath, lightheadedness, dizziness, presyncope, syncope, lower extremity edema, orthopnea, or PND. Subjective PAST MEDICAL HISTORY Diagnosis Date Acute acalculous cholecystitis 05/30/2020 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 09/22/2020 Acute on chronic systolic CHF (congestive heart failure) ([facility]) 05/03/2020 Aspiration pneumonia ([facility]) 05/30/2020 Chest pain 05/03/2020 Chest pressure 01/23/2013 Chronic diastolic congestive heart failure ([facility]) 02/14/2021 Clostridium difficile diarrhea 09/28/2020 Complete uterovaginal prolapse Cystocele, midline Essential hypertension 06/14/2020 Homozygous Factor V Leiden mutation ([facility]) 05/03/2020 Hypothyroidism IBS (irritable bowel syndrome) 01/23/2013 Palpitation CHRONIC Post-operative state 05/24/2020 Rectocele 05/25/2020 Shortness of breath 05/03/2020 Status post laparoscopic hysterectomy 05/30/2020 Tubular adenoma of colon 12/09/2020 Uterine prolapse 05/03/2020 PAST SURGICAL HISTORY Procedure Laterality Date COLONOSCOPY 01/07/2015 COLONOSCOPY 12/05/2021 repeat in 5 years COLONOSCOPY GEN ANES 12/06/2009 X3 LAST ONE IN 2009 EGD 11/08/2012 EGD 12/05/2021 PAST SURGICAL HISTORY OF 05/14/1999 left foot bunionectomy w/screws PAST SURGICAL HISTORY OF 05/14/1981 ectopic w/tube removal PAST SURGICAL HISTORY OF 2009 CYST REMOVED FROM UTERUS PAST SURGICAL HISTORY OF 05/24/2020 TVH, partial colpectomy, anterior colporrhaphy, Dennis transobturator midurethral sling, cystourethroscopy, rectocele repair with perineorrhaphy, laparoscopic lysis of adhesions and excision of bilateral adnexal structures PAST SURGICAL HISTORY OF 09/07/2020 Laparoscopic cholecystectomy with intraoperative cholangiograms. Dr. Ragsdale Social History Tobacco Use Smoking status: Former Types: Cigarettes Quit date: 10/22/2002 Years since quittin.8 Smokeless tobacco: Never Vaping Use Vaping Use: Never used Substance Use Topics Alcohol use: No Drug use: No FAMILY HISTORY Problem Relation Age of Onset Blood Disease Mother Coronary Artery Disease Mother Cancer Mother lung Blood Disease Father Coronary Artery Disease Father Heart Father pacemaker Diabetes Father Breast Cancer Sister younger sis. COPD Brother Hypertension Brother Heart disease Brother Coronary Artery Disease Maternal Grandmother Ischemic Heart Disease Maternal Grandfather Coronary Artery Disease Maternal Grandfather Coronary Artery Disease Daughter ALLERGIES: ALLERGIES Allergen Reactions Emilio Inhibitors Intolerance Short of breath, symptoms of heart failure Beta-Blockers (Beta* Intolerance Short of breath, symptoms of heart failure Augmentin [Amoxicil* GI Upset Codeine Mental Status Change Patient felt like she was made out of lead Lipitor [Atorvastat* Myalgia Muscle aches Sulfa (Sulfonamide * Intolerance Amlodipine Intolerance lightheaded MEDICATIONS: losartan (COZAAR) 25 mg tablet^Take 1 tablet by mouth once daily.^Disp: 30 tablet^Rfl: 3 empagliflozin (JARDIANCE) 10 mg tablet^Take 1 tablet by mouth daily with breakfast.^Disp: 30 tablet^Rfl: 3 levothyroxine (LEVOXYL) 88 mcg tablet^Take 1 tablet by mouth daily before breakfast.^Disp: 90 tablet^Rfl: 2 metoprolol succinate ER (TOPROL XL) 25 mg 24 hr tablet^Take 0.5 tablets by mouth daily at bedtime.^Disp: 15 tablet^Rfl: 2 acetaminophen (TYLENOL) 500 mg tablet^Take 2 tablets by mouth every 8 hours as needed for pain.^Disp: ^Rfl: cyanocobalamin (VITAMIN B-12) 1,000 mcg tab^Take 1 tablet by mouth once daily.^Disp: 30 tablet^Rfl:2 Cholecalciferol, Vitamin D3, 50 mcg (2,000 unit) cap^Take 2 capsules by mouth once daily.^Disp: ^Rfl: aspirin, enteric coated (ECOTRIN LOW STRENGTH) 81 mg EC tablet^Take 1 tablet by mouth once daily.^Disp: ^Rfl: 0 omeprazole (PRILOSEC) 20 mg capsule^Take 1 capsule by mouth daily before breakfast. 1/2 hr before meal.^Disp: 30 capsule^Rfl: 1 (Patient not taking: Reported on 09/05/2023) furosemide (LASIX) 20 mg tablet^Take 1 tablet by mouth once daily.^Disp: 30 tablet^Rfl: 2 (Patient not taking: Reported on 09/05/2023) REVIEW OF SYSTEMS: CARD: See HPI GENERAL: Negative for: Weight loss or gain, Fever and/or Chills HEENT: Negative for: Headache, Impaired Vision, Glasses, Hearing Impairment, Ringing in Ears, Nosebleeds, Bleeding Gums NECK: Negative for: Swelling, Pain, Stiffness RESPIRATORY: Negative for: Cough, Blood in Sputum, Shortness of breath, Wheezing, Apnea GASTROINTESTINAL: Negative for: Nausea, Vomiting, Diarrhea, Blood in stool, or Dark black stools MUSCULOSKELETAL: +Arthralgias NEUROLOGIC: Negative for: focal numbness/weakness, headaches, visual changes, ataxia, speech/language loss SKIN: Negative for: Rashes, Itching HEMATOLOGICAL/LYMPHATIC: Negative for: Easy bruising , Easy bleeding ENDOCRINE: Negative for: Heat or cold intolerance, Excessive sweating, Frequent urination, Frequentthirst Objective PHYSICAL EXAMINATION: BP 128/84 Pulse 84 Ht 160 cm (5' 3) Wt 87.2 kg (192 lb 3.9 oz) SpO2 97% BMI 34.05 kg/m General: Well appearing, in no acute distress. Skin: No clubbing, no cyanosis. Left CW incision well healed Eyes: Extra ocular movements intact Oropharynx: Teeth in good repair. Neck: No jugular venous distention, no carotid bruits, carotids have a normal upstroke. Lungs: Clear to auscultation bilaterally, no wheezing or rhonchi. Heart: Regular rhythm, S1, S2 normal, no S3, no S4, no heaves, no rub and no murmur. No peripheral edema . Grade 2/4 distal pulses bilaterally. Abdomen: Soft, nontender, bowel sounds normal, no bruits. Neuro: Oriented to person, place and time, alert, cooperative, gait coordinated. CARDIOVASCULAR MEDICINE TESTING: Last ECHO Result Conclusion ECHO Collected: 07/12/2023 11:47 AM (Final result) Impression: CONCLUSIONS: - Exam indication: Chest Pain - The left ventricle is severely dilated. Left ventricular systolic function is severely decreased. EF = 26 5% (2D biplane). Grade II left ventricular diastolic dysfunction. - The right ventricle is normal in size. Right ventricular systolic function is normal. - There is mild to moderate (1+ - 2+) mitral valve regurgitation. - There is mild (1+) tricuspid valve regurgitation. - There is mild (1+) aortic valve regurgitation. - There is mild to moderate (1+ - 2+) pulmonic valve regurgitation. - Wall motion abnormalities as above. - Exam was compared with the prior echocardiographic exam performed on 09/21/2022. There is no significant change. * * * Final * * * Last EKG Result Conclusion ECG COMPLETE Collected: 08/07/2023 2:39 PM (Final result) Impression: SINUS RHYTHM LATERAL MYOCARDIAL INFARCTION , AGE UNDETERMINED INFERIOR MYOCARDIAL INFARCTION , AGE UNDETERMINED ABNORMAL ECG Confirmed by GREGORIA MERCADO MD ([id number]) on 08/08/2023 8:01:02 AM Left heart cath LMT: _ The LMT is normal. LAD: _ The LAD has moderate diffuse disease. _ The proximal LAD is narrowed 50 % - moderate diffuse disease. _ The 1st diagonal is narrowed 50 % - moderate diffuse disease. LCX: _ The Circumflex has mild diffuse disease. RAMUS: _ Ramus Status: Not Applicable. RCA: _ The RCA has mild diffuse disease. _ The proximal RCA is narrowed 20 % - mild diffuse disease. Left Ventriculogram:Dilated LV with Moderate severe LV systolic dysfunction LVEF= 30% Nuclear stress test 07/11/2023: CONCLUSIONS: 1. SPECT Perfusion Study: Normal Perfusion but abnormal EF. 2. There is no scintigraphic evidence for inducible ischemia. 3. No evidence of scarred myocardium. 4. Left ventricle is severely dilated. The left ventricle systolic function is severely decreased. 5. This is a high risk scan. Gated Stress IR:3D LVEF % 24 There were no tests performed for review. PLAN AND RECOMMENDATIONS: Chronic HFrEF - NYHA Functional Class II stage C Heart Failure - Echo 07/12/23: EF 26%, grade II LVDD, and normal RV size/systolic function - NT pro BNP 08/22/23: 3,243 (Prior 07/13/23: 2,522) - GDMT: SGLT2i, BB, and ARB - Did not tolerate Entresto (hypotension) or Farxiga (mouth tingling) - Volume status managed on Jardiance - Patient appears euvolemic on exam. - Encouraged to monitor sodium and fluid intake as well as daily weights - Follows with advanced heart failure (Next apt 09/11) - Repeat echo 3 months post CUT PLUG PACKER-D (~10/2023) - Jardiance started 08/31 and Lasix discontinued - BMP 2 weeks after starting Jardiance - Consider increase Losartan dose pending Jardiance response Nonischemic cardiomyopathy - [facility] 10/2021: mod LAD, D1 prox 40%, mild RCA disease - GDMT: - s/p CUT PLUG PACKER-D 07/16/23 at [facility] - Follows with advanced heart failure, - Follows with EP, Dr. Wellington Left bundle branch block - s/p CUT PLUG PACKER-D 07/16/23 at [facility] - Follows with EP, Dr. Wellington Nonobstructive coronary artery disease - [facility] 10/2021: mod LAD, D1 prox 40%, mild RCA disease - Pharm MPI stress 07/11/23: No inducible ischemia or scar - Patient appears compensated from cardiac standpoint - Continue ASA and BB as currently ordered - FLP - Pravastatin vs PCSK9i vs bempedoic acid Valvular heart disease - Echo 06/2023: - Moderate (1-2+) MR - Mild (1+) TR - Mild (1+) AI - Emphasis on afterload reduction - Annual echocardiogram monitoring Essential hypertension - Optimal control on metoprolol succinate and losartan - Encouraged dietary sodium restriction/DASH diet - Reviewed risks of HTN and principles of treatment - Goal of BP <130/80 Mixed hyperlipidemia - Currently on no lipid-lowering agents - Myalgias with Atorvastatin and Rosuvastatin - Chest pressure with Zetia - Last lipid panel 07/2022 with LDL 137 - Normal LFTs 07/2023 - FLP - Pravastatin vs PCSK9i vs bempedoic acid CONCLUSION: Patient presents today for follow-up an appears to be doing well from a cardiovascular standpoint. She was started on Jardiance by advanced heart failure and Lasix discontinued which she began on Sunday. She has noted some jitteriness and palpitations with this change. She will continue to monitor this and let us know if it worsens. She will have BMP in 2 weeks time to assess kidney function onJardiance. She has blood pressure room for continued optimization of her GDMT however she is sensitive to medication changes thus would wait to make any further changes until we see how she does on the Jardiance. She is scheduled to have repeat echocardiogram in October to assess LVEF 3 months s/p CUT PLUG PACKER-D. Her most recent cholesterol profile is not under favorable control. We discussed at length the importance of cholesterol optimization given her known history of nonobstructive CAD. At this time we will obtain repeat FLP and she will consider starting pravastatin versus PCSK9i versus bempedoic acid and let us know which she prefers once her cholesterol results. I have made no additions or changes to her medications. She should continue to actively engage in cardiovascular risk factor modification and follow up with Dr. Wells in September as scheduled and Dr. Mckeon November as scheduled, or sooner should need arise. CONTACT INFORMATION: Thuy Aguirre APRN.TIM Cardiology Nurse Practitioner Section of Regional Cardiology [facility] Dept of Cardiovascular Medicine [facility] Heart and Vascular [place] [phone] Office Office This note was partially generated using [employer] voice recognition system and may contain errors related to that system including grammar, punctuation, spelling, and words that may be inappropriate documented in this encounterKettering [facility]04-15-2024 Miscellaneous Notes* Telephone Encounter - Vinita Fernandez RN - 08/27/2023 3:07 PM EDT Patient returned call and given provider's message below and patient verbalized understanding. Chaim Fernandez RN * Telephone Encounter - Griselda Staton MA - 08/27/2023 2:50 PM EDT Left message to return call Griselda Staton MA * Telephone Encounter - Alejandrina Harvey APRN.TIM - 08/27/2023 2:38 PM EDT Yes, agree that she should take the second dose. Yes it is safe to take the Diflucan and Jardiance together. Alejandrina Harvey APRN.TIM * Telephone Encounter - Maia Larsen RN - 08/27/2023 10:32 AM EDT Pt seen on 08/21 by Alejandrina Harvey. Was having some burning with urination and c/o burning on her labia. Pt states took the Fluconozole as prescribed by Alejandrina. States the symptoms got better for aday or two and then returned. Pt took the Fluconozole on the . Per prescription directions, pt was to repeat in 3 days as needed. Pt calling to see if she should do that. Pt instructed to go ahead and take the 2nd dose. Pt also calling as she states she recently saw her press operator assistant and was put on Jardiance. She is calling to see if there is any problem to starting the Jardiance and taking the Fluconozole? Please call pt back after provider review. documented in this encounterKettering [facility]04-12-2024 Miscellaneous Notes* Telephone Encounter - Helen Ramachandran RN - 08/24/2023 9:25 AM EDT I spoke with pt, she said she's feeling much better with breathing- no JONES, no edema, no weight fluctuations/changes, and BP's 120/80's generally. Pt said she will stop Lasix 20mg daily on Sunday, and start Jardiance on Sunday. She said she starts cardiac rehab next week, too. She will call in if she's having any unpleasant side effects next week. * Telephone Encounter - Pili Wells MD - 08/23/2023 4:43 PM EDT Labs reviewed. NT pro slightly higher than prior. Please follow up with patient regarding any HF sxs, weight change and BP's? Has she started the jardiance as yet and how much lasix is she taking? documented in this encounterKettering [facility]04-10-2024 Instructions* Patient Instructions* Alejandrina Harvey APRN.TIM - 08/22/2023 11:16 AM EDT Take the prednisone (steroid) if needed for your gout pain. Start taking the omeprazole for your silent reflux, take this at night if you're able. Take the diflucan for yeast infection today. You can repeat it in 3 days if necessary. Your urine testing looks completely normal. documented in this encounterKettering Health [facility]04-10-2024 History of Present illness Narrative* Alejandrina Harvey APRN.CNP - 08/22/2023 10:42 AM EDT Chief Complaint Patient presents with: UTI: Burning x 4 days Gout: Swelling left foot Cough: Wheezing x 1 week , had pacemaker placed beginning of july Sandra Schmitz is a 78 year old female who presents here today for Above Complaints. UTI-a little bit of burning with urination for about 4 days. Has been drinking a lot of fontanez juice, lemon juice for concern for gout in her left foot and wondering if this could be the cause as it does seem to be improving somewhat. Wheezy cough-moreso at nighttime, doesn't bring anything (sputum) up. Did just restart losartan. Has tolerated this in the past. Left big to swollen and painful-for a strong week. Has 2 screws in her big toe, fusion to her left second toe. Is painful but can now get a shoe on it. Has hx of gout in this toe. Had a pacemaker placed about 1-1.5 months ago. This seems to be healing well. Has some burning to her labia. Denies discharge, itching, or pain. Past medical history, appointments, medications, allergies reviewed. Previous Medical History PAST MEDICAL HISTORY Diagnosis Date Acute acalculous cholecystitis 05/30/2020 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 09/22/2020 Acute on chronic systolic CHF (congestive heart failure) ([facility]) 05/03/2020 Aspiration pneumonia ([facility]) 05/30/2020 Chest pain 05/03/2020 Chest pressure 01/23/2013 Chronic diastolic congestive heart failure ([facility]) 02/14/2021 Clostridium difficile diarrhea 09/28/2020 Complete uterovaginal prolapse Cystocele, midline Essential hypertension 06/14/2020 Homozygous Factor V Leiden mutation ([facility]) 05/03/2020 Hypothyroidism IBS (irritable bowel syndrome) 01/23/2013 Palpitation CHRONIC Post-operative state 05/24/2020 Rectocele 05/25/2020 Shortness of breath 05/03/2020 Status post laparoscopic hysterectomy 05/30/2020 Tubular adenoma of colon 12/09/2020 Uterine prolapse 05/03/2020 Previous Surgical History PAST SURGICAL HISTORY Procedure Laterality Date COLONOSCOPY 01/07/2015 COLONOSCOPY 12/05/2021 repeat in 5 years COLONOSCOPY GEN ANES 12/06/2009 X3 LAST ONE IN 2009 EGD 11/08/2012 EGD 12/05/2021 PAST SURGICAL HISTORY OF 05/14/1999 left foot bunionectomy w/screws PAST SURGICAL HISTORY OF 05/14/1981 ectopic w/tube removal PAST SURGICAL HISTORY OF 2009 CYST REMOVED FROM UTERUS PAST SURGICAL HISTORY OF 05/24/2020 TVH, partial colpectomy, anterior colporrhaphy, Dennis transobturator midurethral sling, cystourethroscopy, rectocele repair with perineorrhaphy, laparoscopic lysis of adhesions and excision of bilateral adnexal structures PAST SURGICAL HISTORY OF 09/07/2020 Laparoscopic cholecystectomy with intraoperative cholangiograms. Dr. Ragsdale Family History FAMILY HISTORY Problem Relation Age of Onset Blood Disease Mother Coronary Artery Disease Mother Cancer Mother lung Blood Disease Father Coronary Artery Disease Father Heart Father pacemaker Diabetes Father Breast Cancer Sister younger sis. COPD Brother Hypertension Brother Heart disease Brother Coronary Artery Disease Maternal Grandmother Ischemic Heart Disease Maternal Grandfather Coronary Artery Disease Maternal Grandfather Coronary Artery Disease Daughter Patient Allergies ALLERGIES Allergen Reactions Emilio Inhibitors Other: See Comments Short of breath, symptoms of heart failure Beta-Blockers (Beta* Other: See Comments Short of breath, symptoms of heart failure Augmentin [Amoxicil* GI Upset Codeine Mental Status Change Patient felt like she was made out of lead Lipitor [Atorvastat* Myalgia Muscle aches Sulfa (Sulfonamide * Other: See Comments Amlodipine Other: See Comments lightheaded Current Medications Current Outpatient Medications on File Prior to Visit Medication Sig losartan (COZAAR) 25 mg tablet Take 1 tablet by mouth once daily. empagliflozin (JARDIANCE) 10 mg tablet Take 1 tablet by mouth daily with breakfast. levothyroxine (LEVOXYL) 88 mcg tablet Take 1 tablet by mouth daily before breakfast. metoprolol succinate ER (TOPROL XL) 25 mg 24 hr tablet Take 0.5 tablets by mouth daily at bedtime. furosemide (LASIX) 20 mg tablet Take 1 tablet by mouth once daily. acetaminophen (TYLENOL) 500 mg tablet Take 2 tablets by mouth every 8 hours as needed for pain. cyanocobalamin (VITAMIN B-12) 1,000 mcg tab Take 1 tablet by mouth once daily. Cholecalciferol, Vitamin D3, 50 mcg (2,000 unit) cap Take 2 capsules by mouth once daily. aspirin, enteric coated (ECOTRIN LOW STRENGTH) 81 mg EC tablet Take 1 tablet by mouth once daily. ezetimibe (ZETIA) 10 mg tablet Take 1 tablet by mouth once daily. (Patient not taking: Reported on 08/22/2023) ondansetron, PF, (ZOFRAN) 4 mg/2 mL soln Inject 4 mg intravenously every 6 hours as needed. (Patient not taking: Reported on 08/07/2023) Current Facility-Administered Medications on File Prior to Visit Medication perflutren lipid microspheres 1.3 mL in NaCl (PF) 0.9% 10 mL injection (DEFINITY) sodium chloride 0.9 % (flush) 10 mL (BD POSIFLUSH) Social History Social History Tobacco Use Smoking status: Former Types: Cigarettes Quit date: 10/22/2002 Years since quittin.8 Smokeless tobacco: Never Vaping Use Vaping Use: Never used Substance Use Topics Alcohol use: No Drug use: No Review of Symptoms REVIEW OF SYSTEMS See HPI, otherwise negative EXAM: BP 122/84 (BP Site: Left Arm, BP Position: Sitting, BP Cuff Size: Regular Adult) Pulse 76 Temp 36.1 C (96.9 F) Wt 87 kg (191 lb 12.8 oz) SpO2 95% BMI 33.98 kg/m General Appearance: Well appearing, alert, in no acute distress, well-hydrated, well nourished.. Nose/Sinuses: Nares normal, septum midline, mucosa normal, no drainage or sinus tenderness. Oropharynx: Lips, mucosa, and tongue normal, teeth and gums normal, oropharynx normal. Neck: Supple, no adenopathy; thyroid symmetric, normal size, no bruits. Lungs: Lungs clear to auscultation. No wheezing, rhonchi, rales.. Heart: RRR without murmur, gallop, or rubs. No ectopy. Abdomen: Normal abdominal exam, Abdomen soft, non-tender. Bowel sounds normal. No masses, organomegaly. Psychiatric: pleasant, cooperative. Health Maintenance List Hepatitis C Screening Never done DTaP,Tdap,Td Vaccine(1 - Tdap) Never done Shingrix Vaccine(1 of 2) Never done RSV Vaccine(1 - 1-dose 60+ series) Never done Advance Directive Discussion Never done Behavioral Health Screening Never done LDL Cholesterol due on 07/22/2023 Annual PCP Team Chronic Disease Visit due on 07/23/2024 BP Controlled (<130/80) due on 08/06/2024 Diabetes Screening due on 07/23/2026 Bone Density Screening Completed Pneumococcal Vaccine: 65+ Completed Mammogram Screening Discontinued Influenza Vaccine Discontinued Colorectal Cancer Screening Discontinued Covid-19 Vaccine Discontinued Data reviewed Previous records, office notes ASSESSMENT/PLAN: 1. Vagina, candidiasis - ICD9: 112.1, ICD10: B37.31 (primary diagnosis) - UA DIP, URINE (POC) - FLUCONAZOLE 150 MG TABLET 2. Burning with urination - ICD9: 788.1, ICD10: R30.0 Suspect vaginal candidiasis - UA DIP, URINE (POC) - FLUCONAZOLE 150 MG TABLET 3. 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 - ICD9: 274.01, ICD10: M10.072 - PREDNISONE 10 MG TABLET 4. Acute cough - ICD9: 786.2, ICD10: R05.1 Suspect LPR - OMEPRAZOLE 20 MG CAPSULE,DELAYED RELEASE 5. Laryngopharyngeal reflux (LPR) - ICD9: 478.79, ICD10: K21.9 - Discussed lifestyle modifications including losing weight, limiting caffeine, no meals three hours before sleep, and head of bed elevation - Begin treatment with Prilosec 20 mg QD - OMEPRAZOLE 20 MG CAPSULE,DELAYED RELEASE Alejandrina Harvey APRN.DIRECTOR OF DONOR RELATIONS documented in this encounterKettering [facility]03-26-2024 History of Present illness Narrative* Dilcia Pearson MD - 08/07/2023 3:22 PM EDT Images from the original note were not included. Heart and Vascular [facility] Department of Cardiovascular Medicine SECTION OF CARDIAC PACING and ELECTROPHYSIOLOGY OUTPATIENT VISIT DATE August 07, 2023 OUTPATIENT VISIT TYPE ESTABLISHED PRIMARY CARE PHYSICIAN: Mandeep Houser [address] [place] [address] REFERRING PHYSICIAN: No referring provider defined for this encounter. CHIEF COMPLAINT: Left bundle branch block, nonischemic cardiomyopathy, status post CUT PLUG PACKER-D HISTORY OF PRESENT ILLNESS: Ms. Schmitz is a 78 year old female who presents today for follow-up visit --- doing significantly better since discharge from the hospital. Dyspnea on exertion which was previously limiting, has resolved entirely. No issues with healing of the wound. She denies chest pain, shortness of breath, orthopnea, cough, edema, palpitations, PND, lightheadedness or syncope. PAST CARDIAC HISTORY: PAST MEDICAL HISTORY Diagnosis Date Acute acalculous cholecystitis 05/30/2020 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 09/22/2020 Acute on chronic systolic CHF (congestive heart failure) ([facility]) 05/03/2020 Aspiration pneumonia ([facility]) 05/30/2020 Chest pain 05/03/2020 Chest pressure 01/23/2013 Chronic diastolic congestive heart failure ([facility]) 02/14/2021 Clostridium difficile diarrhea 09/28/2020 Complete uterovaginal prolapse Cystocele, midline Essential hypertension 06/14/2020 Homozygous Factor V Leiden mutation ([facility]) 05/03/2020 Hypothyroidism IBS (irritable bowel syndrome) 01/23/2013 Palpitation CHRONIC Post-operative state 05/24/2020 Rectocele 05/25/2020 Shortness of breath 05/03/2020 Status post laparoscopic hysterectomy 05/30/2020 Tubular adenoma of colon 12/09/2020 Uterine prolapse 05/03/2020 PAST SURGICAL HISTORY Procedure Laterality Date COLONOSCOPY 01/07/2015 COLONOSCOPY 12/05/2021 repeat in 5 years COLONOSCOPY GEN ANES 12/06/2009 X3 LAST ONE IN 2009 EGD 11/08/2012 EGD 12/05/2021 PAST SURGICAL HISTORY OF 05/14/1999 left foot bunionectomy w/screws PAST SURGICAL HISTORY OF 05/14/1981 ectopic w/tube removal PAST SURGICAL HISTORY OF 2009 CYST REMOVED FROM UTERUS PAST SURGICAL HISTORY OF 05/24/2020 TVH, partial colpectomy, anterior colporrhaphy, Dennis transobturator midurethral sling, cystourethroscopy, rectocele repair with perineorrhaphy, laparoscopic lysis of adhesions and excision of bilateral adnexal structures PAST SURGICAL HISTORY OF 09/07/2020 Laparoscopic cholecystectomy with intraoperative cholangiograms. Dr. Ragsdale SOCIAL HISTORY Social History Tobacco Use Smoking status: Former Types: Cigarettes Quit date: 10/22/2002 Years since quittin.8 Smokeless tobacco: Never Vaping Use Vaping Use: Never used Substance Use Topics Alcohol use: No Drug use: No FAMILY HISTORY Problem Relation Age of Onset Blood Disease Mother Coronary Artery Disease Mother Cancer Mother lung Blood Disease Father Coronary Artery Disease Father Heart Father pacemaker Diabetes Father Breast Cancer Sister younger sis. COPD Brother Hypertension Brother Heart disease Brother Coronary Artery Disease Maternal Grandmother Ischemic Heart Disease Maternal Grandfather Coronary Artery Disease Maternal Grandfather Coronary Artery Disease Daughter ALLERGIES: ALLERGIES Allergen Reactions Emilio Inhibitors Other: See Comments Short of breath, symptoms of heart failure Beta-Blockers (Beta* Other: See Comments Short of breath, symptoms of heart failure Augmentin [Amoxicil* GI Upset Codeine Mental Status Change Patient felt like she was made out of lead Lipitor [Atorvastat* Myalgia Muscle aches Sulfa (Sulfonamide * Other: See Comments Amlodipine Other: See Comments lightheaded MEDICATIONS: levothyroxine (LEVOXYL) 88 mcg tablet^Take 1 tablet by mouth daily before breakfast.^Disp: 90 tablet^Rfl: 2 potassium chloride ER (KLOR-CON) 20 mEq tablet^Take 1 tablet by mouth once daily.^Disp: 30 tablet^Rfl: 1 ezetimibe (ZETIA) 10 mg tablet^Take 1 tablet by mouth once daily.^Disp: 30 tablet^Rfl: 1 metoprolol succinate ER (TOPROL XL) 25 mg 24 hr tablet^Take 0.5 tablets by mouth daily at bedtime.^Disp: 15 tablet^Rfl: 2 furosemide (LASIX) 20 mg tablet^Take 1 tablet by mouth once daily.^Disp: 30 tablet^Rfl: 2 acetaminophen (TYLENOL) 500 mg tablet^Take 2 tablets by mouth every 8 hours as needed for pain.^Disp: ^Rfl: cyanocobalamin (VITAMIN B-12) 1,000 mcg tab^Take 1 tablet by mouth once daily.^Disp: 30 tablet^Rfl:2 Cholecalciferol, Vitamin D3, 50 mcg (2,000 unit) cap^Take 2 capsules by mouth once daily.^Disp: ^Rfl: aspirin, enteric coated (ECOTRIN LOW STRENGTH) 81 mg EC tablet^Take 1 tablet by mouth once daily.^Disp: ^Rfl: 0 ondansetron, PF, (ZOFRAN) 4 mg/2 mL soln^Inject 4 mg intravenously every 6 hours as needed.^Disp: ^Rfl: REVIEW OF SYSTEMS: GENERAL: Negative for: Weight loss or gain, Fever or Chills, Weakness and Sleep difficulties. HEENT: Negative for: Headache, Impaired Vision, Glasses, Hearing Impairment, Ringing in Ears, Nosebleeds, Poor dental care, Bleeding Gums, Dentures NECK: Negative for: Swelling, Pain, Stiffness RESPIRATORY: Negative for: Cough, Blood in Sputum, Shortness of breath, Wheezing, Apnea GASTROINTESTINAL: Negative for: Trouble swallowing, Heartburn, Change in bowel habits, Blood in stool, Dark black stools MUSCULOSKELETAL: Negative for: Muscle or joint pain, Stiffness , Joint swelling NEUROLOGIC/PSYCHIATRIC: Negative for: Weakness, Paralysis, Numbness, Tingling, Tremor, Nervousness,Depressed mood, Memory loss SKIN: Negative for: Rashes, Itching HEMATOLOGICAL/LYMPHATIC: Negative for: Easy bruising , Easy bleeding ENDOCRINE: Negative for: Heat or cold intolerance, Excessive sweating, Frequent urination, Frequentthirst PHYSICAL EXAMINATION: BP 125/82 (BP Site: Right Arm, BP Position: Sitting, BP Cuff Size: Extra Large Adult) Pulse 91 Ht 160 cm (5' 3) Wt 86.6 kg (190 lb 14.4 oz) SpO2 95% BMI 33.82 kg/m BP w/Orthostatic Vitals Date and Time Orthostatic BP Orthostatic Pulse BP Pulse BP Position BP Site BP Cuff Size 08/07/23 1444 -- -- 125/82 91 Sitting Right Arm Extra Large Adult General: Well appearing, in no acute distress. Skin: No clubbing, no cyanosis. Eyes: Extra ocular movements intact Oropharynx: Teeth in good repair. Neck: No jugular venous distention, no carotid bruits, carotids have a normal upstroke, no palpablethyromegaly. Lungs: Clear to auscultation bilaterally, no wheezing or rhonchi. Heart: Regular rhythm, PMI not displaced, S1, S2 normal, no S3, no S4, no heaves, no rub and no murmur. Chest: Left-sided device is well-seated, incision is healed Abdomen: Soft, nontender, bowel sounds normal, no palpable organomegaly, no bruits. Extremities: No peripheral edema . Grade 2/4 distal pulses bilaterally. Neuro: Oriented to person, place and time, alert, cooperative, gait coordinated. CARDIOVASCULAR MEDICINE TESTING: Electrocardiogram: Sinus with biventricular pacing, QRS is 120 ms Device interrogation: Battery status is good. Lead parameters stable. BiV pacing delivery 98% I have personally reviewed the Electrocardiogram and Device Check. Assessment IMPRESSION: Ms. Schmitz is a 78 year old female with nonischemic cardiomyopathy, with EF less than 35% and spite of GDMT, complete left bundle branch block --- underwent implant of a biventricular ICD with excellent procedural endpoints. She is here for follow-up device interrogation shows normal lead parametersand effective delivery of CUT PLUG PACKER. She reports notable improvement in symptoms. We will monitor her device remotely every 3 months Follow-up with EP team on an annual basis CONTACT INFORMATION: Dilcia Bonilla MD documented in this encounterK[facility]-25-2024 Miscellaneous Notes* Telephone Encounter - Helen Ramachandran RN - 08/06/2023 3:41 PM EDT Spoke with pt to confirm appt with Dr. Wells tomorrow. documented in this encounterK[facility]03-16-2024 Miscellaneous Notes* Telephone Encounter - Palmira Samuels APRN.CNP - 07/28/2023 2:18 PM EDT Attempted to call patient, left VM w/ call back number. * Telephone Encounter - Shelly Briones Ma - 07/26/2023 3:04 PM EDT Patient states on Sunday pulled something in her back. Today she feels pressure across the frontof chest when she burbs there pressure stops and comes back. The patient has a remote monitor at home and will do a down load for her device. I advised patient ER if necessary. Can someone call to see if device related. Please advise. documented in this encounterK[facility]03-13-2024 Miscellaneous Notes* Telephone Encounter - Mane Pennington LPN - 07/25/2023 2:07 PM EDT Patient has been identified by name and date of : Patient phones for refill(s): Requested Prescriptions Pending Prescriptions Disp Refills levothyroxine (LEVOXYL) 88 mcg tablet 90 tablet Sig: Take 1 tablet by mouth daily before breakfast. Date of last office visit in primary care: 07/24/2023 Date of next office visit in primary care: 10/31/2023 Please advise. Thank you. Mane Pennington LPN. documented in this encounterK[facility]03-13-2024 Miscellaneous Notes* Telephone Encounter - Mane Pennington LPN - 07/25/2023 2:06 PM EDT Phoned patient and went over results, notes from Dr Houser with understanding. * Telephone Encounter - Mandeep Houser DO - 07/25/2023 1:49 PM EDT Please let patient know that overall her labs are stable. No changes at this time Mandeep Houser DO documented in this encounterK[facility]03-12-2024 History of Present illness Narrative* Mandeep Houser DO - 07/24/2023 1:56 PM EDT CC: Sandra Schmitz is a 78 year old female who presents to the office for follow up HPI: Here with her sister Louisa in the office today: ADMIT DATE: 07/10/2023 DISCHARGE DATE: 07/13/2023 MY DOCTORS AND MEDICAL TEAM: My Main Hospital Doctor: Remington Cai MD Primary Care Provider: Mandeep Houser DO My Medical Team Members: Treatment Team: Attending Provider: Remington Cai MD Consulting: Álvaro Lobo MD MY CONDITION AT DISCHARGE: Serious condition meaning subject to change unexpectedly REASON I WAS IN THE HOSPITAL: Acute decompensated heart failure SUMMARY OF WHAT HAPPENED WHILE I WAS IN THE HOSPITAL: Able to be diuresed with Lasix but unable to tolerate Entresto or beta-lorenzo. Unable to schedule pacer defibrillator and Blanch and contacted [facility] in August to have Dr. Wellington do the procedure. Accepted by Dr. Rahul Bee on hospital medicine Principal Problem: Acute decompensated heart failure (HCC) Active Problems: Acute on chronic systolic CHF (congestive heart failure) (HCC) Obesity, Class I, BMI 30-34.9 Hypothyroidism Chronic 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) Left bundle branch block Nonischemic cardiomyopathy (HCC) Acute on chronic 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) PROCEDURES: Biventricular pacer defibrillator plan to be done at [facility] Disposition: Transfer to [facility] on hospital medicine with consult to Dr. Dilcia Wellington EK07/10/2023 sinus rhythm left bundle branch block with her last prior EKG being the same axis and amplitude but the complex now has moved from QRS duration of 100 ms to 172 ms and this is a new left bundle branch block Echocardiogram: 09/21/2022 - The left ventricle is mildly dilated. Left ventricular systolic function is severely decreased. EF = 29 5% (2D biplane) Grade I left ventricular diastolic dysfunction. Segmental wall motion abnormalities as described above. - The right ventricle is normal in size. Right ventricular systolic function is normal. - There are no significant valvular abnormalities. NUCLEAR STRESS TEST: 07/11/2023 1. SPECT Perfusion Study: Normal Perfusion but abnormal EF. 2. There is no scintigraphic evidence for inducible ischemia. 3. No evidence of scarred myocardium. 4. Left ventricle is severely dilated. The left ventricle systolic function is severely decreased. 5. This is a high risk scan. Gated Stress IR:3D LVEF % 24 Has a follow up scheduled with Knife Grinder / Cardiac surgeon in the next 2 weeks. Currently she feels that her fatigue and dyspnea have improved since the pacemaker and defibrillator biventricular. Has good support from her daughter Julia and sister Louisa. Bruising at her pacemaker site and arms and chest are improving. Has been napping at home. No chest pain or pressure. PAST MEDICAL HISTORY Diagnosis Date Acute acalculous cholecystitis 05/30/2020 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 09/22/2020 Acute on chronic systolic CHF (congestive heart failure) (HCC) 05/03/2020 Aspiration pneumonia (HCC) 05/30/2020 Chest pain 05/03/2020 Chest pressure 01/23/2013 Chronic diastolic congestive heart failure (HCC) 02/14/2021 Clostridium difficile diarrhea 09/28/2020 Complete uterovaginal prolapse Cystocele, midline Essential hypertension 06/14/2020 Homozygous Factor V Leiden mutation (HCC) 05/03/2020 Hypothyroidism IBS (irritable bowel syndrome) 01/23/2013 Palpitation CHRONIC Post-operative state 05/24/2020 Rectocele 05/25/2020 Shortness of breath 05/03/2020 Status post laparoscopic hysterectomy 05/30/2020 Tubular adenoma of colon 12/09/2020 Uterine prolapse 05/03/2020 PAST SURGICAL HISTORY Procedure Laterality Date COLONOSCOPY 01/07/2015 COLONOSCOPY 12/05/2021 repeat in 5 years COLONOSCOPY GEN ANES 12/06/2009 X3 LAST ONE IN 2009 EGD 11/08/2012 EGD 12/05/2021 PAST SURGICAL HISTORY OF 05/14/1999 left foot bunionectomy w/screws PAST SURGICAL HISTORY OF 05/14/1981 ectopic w/tube removal PAST SURGICAL HISTORY OF 2009 CYST REMOVED FROM UTERUS PAST SURGICAL HISTORY OF 05/24/2020 TVH, partial colpectomy, anterior colporrhaphy, Dennis transobturator midurethral sling, cystourethroscopy, rectocele repair with perineorrhaphy, laparoscopic lysis of adhesions and excision of bilateral adnexal structures PAST SURGICAL HISTORY OF 09/07/2020 Laparoscopic cholecystectomy with intraoperative cholangiograms. Dr. Ragsdale Social History: Social History Tobacco Use Smoking status: Former Types: Cigarettes Quit date: 10/22/2002 Years since quittin.7 Smokeless tobacco: Never Vaping Use Vaping Use: Never used Substance Use Topics Alcohol use: No Drug use: No FAMILY HISTORY Problem Relation Age of Onset Blood Disease Mother Coronary Artery Disease Mother Cancer Mother lung Blood Disease Father Coronary Artery Disease Father Heart Father pacemaker Diabetes Father Breast Cancer Sister younger sis. COPD Brother Hypertension Brother Heart disease Brother Coronary Artery Disease Maternal Grandmother Ischemic Heart Disease Maternal Grandfather Coronary Artery Disease Maternal Grandfather Coronary Artery Disease Daughter Current Outpatient prescriptions: potassium chloride ER (KLOR-CON) 20 mEq tablet^Take 1 tablet by mouth once daily.^Disp: 30 tablet^Rfl: 1 ezetimibe (ZETIA) 10 mg tablet^Take 1 tablet by mouth once daily.^Disp: 30 tablet^Rfl: 1 metoprolol succinate ER (TOPROL XL) 25 mg 24 hr tablet^Take 0.5 tablets by mouth daily at bedtime.^Disp: 15 tablet^Rfl: 2 furosemide (LASIX) 20 mg tablet^Take 1 tablet by mouth once daily.^Disp: 30 tablet^Rfl: 2 acetaminophen (TYLENOL) 500 mg tablet^Take 2 tablets by mouth every 8 hours as needed for pain.^Disp: ^Rfl: levothyroxine (LEVOXYL) 88 mcg tablet^Take 1 tablet by mouth daily before breakfast.^Disp: ^Rfl: cyanocobalamin (VITAMIN B-12) 1,000 mcg tab^Take 1 tablet by mouth once daily.^Disp: 30 tablet^Rfl:2 Cholecalciferol, Vitamin D3, 50 mcg (2,000 unit) cap^Take 2 capsules by mouth once daily.^Disp: ^Rfl: aspirin, enteric coated (ECOTRIN LOW STRENGTH) 81 mg EC tablet^Take 1 tablet by mouth once daily.^Disp: ^Rfl: 0 ondansetron, PF, (ZOFRAN) 4 mg/2 mL soln^Inject 4 mg intravenously every 6 hours as needed.^Disp: ^Rfl: Allergies: ALLERGIES Allergen Reactions Emilio Inhibitors Other: See Comments Short of breath, symptoms of heart failure Beta-Blockers (Beta* Other: See Comments Short of breath, symptoms of heart failure Augmentin [Amoxicil* GI Upset Codeine Mental Status Change Patient felt like she was made out of lead Lipitor [Atorvastat* Myalgia Muscle aches Sulfa (Sulfonamide * Other: See Comments Amlodipine Other: See Comments lightheaded ROS: See HPI PE: 07/24/23 1342 BP: 120/80 Pulse: 80 Resp: 20 Temp: 36.1 C (97 F) TempSrc: Left Tympanic Weight: 87.5 kg (193 lb) Gen: A&O, NAD, non-toxic appearing, Pleasant, cooperative HEENT: NT/AC, PERRLA, wearing glasses, EOMs intact b/l, nares clear and patent b/l, pharynx withouterythema, exudate or lesions. Uvula midline. MMM, Neck: supple, No cervical LAD, no thyromegaly, no carotid bruits CV: RRR, normal S1 and S2, no murmurs, no gallops, no rubs, Pulses 2+ and symmetric in UE and LE b/l Lungs: normal respiratory effort, CTA b/l, no wheezing or rhonchi or rales Abd: soft, obese, NT, ND, +BS, no hepatosplenomegaly MS: FROM all 4 extremities Neuro: CN II-XII intact b/l, strength 5/5 b/l UE and LE, DTRs 2/4 UE and LE, sensation intact. Skin: warm, dry, intact, healing bruising and incision pacemaker site with pacemaker in place No leg edema, normal pulses ASSESSMENT/PLAN: 1. Chronic diastolic congestive heart failure (HCC) - ICD9: 428.32, 428.0, ICD10: I50.32 (primary diagnosis) - recently hospitalized and medications adjusted down and off Entresto. Had biventricular pacemakerand defibrillator placed and fatigue is improving. Follow up with Knife Grinder/surgeon Recheck labs. She is taking the metoprolol medication - COMP METABOLIC PANEL - CBC + DIFF 2. Hypothyroidism, acquired - ICD9: 244.9, ICD10: E03.9 - Instructed patient on importance of taking on an empty stomach either first thing in the morning or at bedtime. - continue current dose of Synthroid - TSH BLD - T4 FREE/FREE THYROX - T3 FREE BLD - COMP METABOLIC PANEL - CBC + DIFF 3. Vitamin D deficiency - ICD9: 268.9, ICD10: E55.9 - VITAMIN D 25 HYDROXY 4. Fatigue, unspecified type - ICD9: 780.79, ICD10: R53.83 - recently hospitalized and medications adjusted down and off Entresto. Had biventricular pacemakerand defibrillator placed and fatigue is improving. Follow up with Knife Grinder/surgeon Recheck labs. She is taking the metoprolol medication - COMP METABOLIC PANEL - CBC + DIFF 5. Acute hypoxic respiratory failure (HCC) - ICD9: 518.81, ICD10: J96.01 - recently hospitalized and medications adjusted down and off Entresto. Had biventricular pacemakerand defibrillator placed and fatigue is improving. Follow up with Knife Grinder/surgeon Recheck labs. She is taking the metoprolol medication - COMP METABOLIC PANEL - CBC + DIFF 6. Chronic bronchitis, unspecified chronic bronchitis type (HCC) - ICD9: 491.9, ICD10: J42 - recently hospitalized and medications adjusted down and off Entresto. Had biventricular pacemakerand defibrillator placed and fatigue is improving. Follow up with Knife Grinder/surgeon Recheck labs. She is taking the metoprolol medication - COMP METABOLIC PANEL - CBC + DIFF 7. Atrial fibrillation, unspecified type (HCC) - ICD9: 427.31, ICD10: I48.91 - recently hospitalized and medications adjusted down and off Entresto. Had biventricular pacemakerand defibrillator placed and fatigue is improving. Follow up with Knife Grinder/surgeon Recheck labs. She is taking the metoprolol medication - COMP METABOLIC PANEL - CBC + DIFF 8. SVT (supraventricular tachycardia) (HCC) - ICD9: 427.89, ICD10: I47.10 - recently hospitalized and medications adjusted down and off Entresto. Had biventricular pacemakerand defibrillator placed and fatigue is improving. Follow up with Knife Grinder/surgeon Recheck labs. She is taking the metoprolol medication - COMP METABOLIC PANEL - CBC + DIFF 9. Homozygous Factor V Leiden mutation (HCC) - ICD9: 289.81, ICD10: D68.51 Mandeep Houser DO To ER if develops chest pain, shortness of breath, or severe worsening of symptoms. Discussed risks, benefits, alternatives, and potential side effects of medications. Patient expressed understanding and agreed with the plan. Mandeep Houser DO [address] [place] [address] documented in this encounterK[facility]03-08-2024 History of Present illness Narrative* Fitz Mcqueen RN - 07/20/2023 1:09 PM EST TCM Home Visit Referral Source of Stratification: [facility] Admission Status: Discharged Readmission Risk Score: 13 RICHI Score: 16 Patient meets program referral criteria: No Patient does not qualify for High Risk TCM Home Visit program due to: Discharged home, does not meet program criteria Fitz Mcqueen RN July 20, 2023 1:09 PM TRANSITIONAL CARE MANAGEMENT (TCM) COMMUNITY MONITORING PROGRAM Provider Action/FYI: Spoke to patient. States she is feeling better. States someone had already called her today. Lives with daughter Denies chest pain or SOB. Does have some chest pressure. Denies fever or chills. Denies s/s of infection No drainage. Pt did not check her BP or weight today. Denies questions or concerns re: medications, self care, and discharge instructions. Agreeable with recommended plan of care. To call PCP for new/worsening symptoms Appointments for Next 60 Days Date Time Provider Location Dept Phone 07/24/2023 1:40 PM MANDEEP HOUSER [facility] [phone] 08/07/2023 2:30 PM [facility] [phone] 08/07/2023 3:00 PM [facility] [phone] 08/07/2023 3:30 PM [facility] [phone] SUMMARY: Discharge Network Status: In-Network Discharge Pt discharged from [facility] on 07/18/23. Admitted for: Bradycardia Contact made with patient: Yes Hi my name is Fitz Mcqueen RN and I am calling [facility] the [facility] on behalf of your PCP, Mandeep Houser, DO I understand you were recently in the hospital so I am calling to check in with you to ensure you are feeling well now that you're home. May I ask you a few questions related to your hospital stay and well-being? Yes Contact with patient post discharge, spoke to patient. Patient identified by name and . Do you feel your health is BETTER, WORSE, or the SAME since leaving the hospital? Better ACTION TAKEN: Patient indicated symptoms are better or same, no action required. Continue outreach. MEDICATIONS: Many patients have questions or concerns about their medications once they are home. Do you have any questions about taking your medications or which medication you should be on? No Do you need any medication refills at this time, including any of the medications you might take only when needed? No ACTION TAKEN: No action required For RNs or Pharmacy completing outreach ONLY, was a medication review completed? No SOCIAL: We would like to make sure you have what you need so that your basics needs are met - including your personal safety, food, housing and medications. Would you like to speak with a social work steam shovel operating engineer to help give you support for any of these needs? No It can be normal to feel anxious or down during a time like this. Would you like to talk to a mental health professional about how you have been feeling? No ACTION TAKEN: No action taken DISCHARGE INTRUCTIONS: Your discharge instructions / After Visit Summary (AVS) are important in guiding you through the recovery process. Do you have any questions related to your discharge instructions? No Do you have all the necessary equipment and supplies at home? Yes ACTION TAKEN: No action required I would like to help you schedule a hospital follow-up virtual or telephone visit with your PCP. This is a great way for you to connect with your provider to ensure you have safely transitioned home.If you are agreeable, I will send your request to a java oracle developer who will contact and assist you with that appointment. This will give you an opportunity to ask any questions or address any concerns youmay have with your PCP. Inform the patient that if they have any questions or concerns prior to that appointment, to call their PCP's office right away. ACTION TAKEN: No action required, patient already has an appointment scheduled. Your doctor would like us to remind you of the recommendations regarding the coronavirus (Covid19) outbreak: Avoid public places as much as possible. Avoid close contact (within 6 feet) with others you don t live with, especially if they are sick. Stay home if you are sick. Wash your hands regularly for at least 20 seconds with soap and water. Wear a cloth mask in public places to help reduce community spread. Do not go to your Doctor s office unless instructed to do so. For any non- emergency symptoms, call your Doctor s office to get instructions on how to manage (we might recommend a telephone or virtualvisit). For emergency symptoms, proceed to Emergency Department as usual but inform them of cough and fever symptoms CRISTINE if present (or call on the way if possible). LAZ Education Ordered -: No Fitz Mcqueen RN documented in this encounterK[facility]03-08-2024 Miscellaneous Notes* Telephone Encounter - Ctahy Munguia - 07/20/2023 10:17 AM EST PATIENT INFORMATION Record ID: [id number] [facility] [place]: [facility] Attending: Angelica Silva Center: Hospital Medicine INSTRUCTIONS SN to remind patient of next upcoming appointment date, time, location All Clear SURVEY INFORMATION Medical/Nurse Audio Video Mechanic: Cathy Prakash 1. Your discharge instructions are important in guiding you through the recovery process. Is there anything I could help you clarify on your discharge instructions? (Standard Question) No, no clarification needed 2. We encourage a follow up appointment with your physician. Do you have one scheduled? If not; What is the name of the doctor you should be seeing for your follow-up care? (Standard Question) Yes 3. Many patients have concerns about their medications once they are home. Do you have any questions about getting or taking your medications? (Standard Question) No 4. Do you have any new or worsening symptoms? (Standard Question) No documented in this encounterKet[facility]03-05-2024 NoteHNO ID: [id number] Author: ANGELICA SILVA MD Service: Hospital Medicine Author Type: Physician Type: Progress Notes Filed: 07/18/2023 09:37 Note Text: DEPARTMENT OF HOSPITAL MEDICINE PROGRESS NOTE SERVICE DATE: 07/17/2023 SERVICE TIME: 5:22 PM Hospital Medicine/Primary Attending: Angelica Silva MD NIGHT AND WEEKEND COVERAGE: [place] COVERAGE:Team 5 Subjective INTERVAL HPI: The patient was seen twice today In the morning she was feeling well did not have any chest pain or shortness of breath very mild dizziness, the plan was to discharge her home Then after she ate lunch she had an episode of dizziness lightheadedness felt that she was going to pass out She said this is the same thing that happened to her at home that made her come to [facility] Patient reports when she was off the Entresto did not have any of these episodes Otherwise no abdominal pain no nausea vomiting no diarrhea MEDICATIONS: Reviewed Objective PHYSICAL EXAM: BP 96/46 Pulse 60 Temp (Src) 97.7 (Oral) Resp 20 Ht 5' 3 (1.60m) Wt 189 lb 14.4 oz (86.1kg) SpO2 95% BMI 33.65 kg/(m2). O2 Therapy: Room Air Physical Exam Performed GENERAL: Alert, no distress, cooperative LUNGS: Lungs clear to auscultation, Good diaphragmatic excursion CARDIAC: S1 and S2 ABDOMEN: Abdomen soft, non-tender, BS normal, No masses or organomegaly EXTREMITIES: no edema Lines, Drains, and Airways Line Duration Peripheral 07/15/23 1115 [facility] Short Right Forearm 20 Gauge 2 days Peripheral 07/16/23 1718 [facility] Left Wrist 20 Gauge 1 day DATA: Diagnostic tests reviewed for today's visit: Most recent labs and imaging results. 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 chronic LBBB 77 year old female, who presented to [facility] ER due to concerns for chest pressure with associated postural lightheadedness and dyspnea She was subsequently admitted to [facility] She had lexiscan stress test which was negative for inducible ischemia Also she had a transthoracic echocardiogram that showed reduced ejection fraction of <35%. Before her admission she was on Entresto 49/51 BID and metoprolol but that was causing her to be bradycardic and hypotensive also dizzy so both medications were stopped also she did not tolerate SGL2i. She was diuresed with IV Lasix And she was transferred to [facility] for consideration of inpatient CUT PLUG PACKER implantation given her left bundle branch block Pt was seen by EP and she had MDT CUT PLUG PACKER-D insertion on 08/14 In regards to heart failure she was continued on Lasix at She was seen by Dr Wells heart failure specialist appreciate her input Patient was started back on low dose entresto 1/2 tab BID , toprol XL 12.5mg and lasix 20 mg daily which overall she tolerated blood pressure was soft cardiology aware and they recommended to continue with above until this afternoon when she finished eating she had and episode of significant lightheadedness , clammy and sweaty felt she was going to pass out Per patient this is the same episode she was having before admission She said these episodes resolved completely when she was off the Entresto We checked her blood sugars and it was 141 Reviewed monitor no evidence of significant arrhythmias Discussed with appreciate her input given the above the decision was made to stop the Entresto Discharge canceled and patient will be monitored in the hospital overnight Plan to follow up with Dr Wells in 2 weeks EP Will arrange 1-2 week follow up with EP RO[facility] at [facility] office with device check prior. Medication and Non-Pharmacologic VTE Prophylaxis/Anticoagulants Anticoagulant AND Antiplatelet Medications (From admission, onward) Start Dose Route Frequency Last Action Ordered Stop 07/13/232029 aspirin, enteric coated 81 mg tab(s) 81 mg ORAL DAILY Given, 07/16 93407/13/232017 -- VTE Prophylaxis: VTE prophylaxis appropriate Disposition: Home Plan of care discussed with: Provider, RN, Patient and Consultants: EP and cardiology SIGNATURE: Angelica Silva MD PATIENT NAME: Sandra Schmitz DATE: July 17, 2023 TIME: 5:22 PM etx [id number] Braintree Rehabilitation [id number] NoteHNO ID: [id number] Author: ANGELICA SILVA MD Service: Hospital Medicine Author Type: Physician Type: Progress Notes Filed: 07/17/2023 10:15 Note Text: Documentation Query Based on your medical judgment of the clinical indicators outlined below, please clarify the condition: (Please type X next to your response and sign) Clinical Indicators: 3/1 Bun/creat=37/1.05, GFR-55 3/2 Bun-30 3/3 Bun/creat= 38/0.99, GFR= 59 3/4 Bun/creat= 39/1.04 , GFR=56 3/5 Bun/creat-33/0.98, GFR= 60 Treatment: Monitoring daily BMP Please clarify the Renal Status Such as: Acute Kidney Injury/Failure, POA Dehydration, POA x Elevated Bun/creatinine levels are clinically Insignificant Other, please specify [facility] [phone] Miscellaneous Notes* Telephone Encounter - Morenita Hill APRN.CNP - 07/17/2023 11:04 AM EST Please call patient to arrange for appointment with EP ROSEMARY or Dr. Wellington with device check immediately prior at P office. If we could coordinate this for same day she is seeing Dr. Wells, that wouldbe great, in the next ~2 weeks. Thank you! Morenita Hill APRN.CNP documented in this encounterK[facility]24 NoteHNO ID: [id number] Author: GRISELDA SALMERON MD Service: Anesthesiology Author Type: Anesthesiologist Type: Anesthesia Procedure Notes Filed: 2023 17:05 Note Text: ANESTHESIOLOGY PROCEDURE NOTE A-Line General Information Procedure Start Time/Medication Administration: 2023 1:35 PM Procedure End Time: 2023 1:45 PM Patient location during procedure: OR Consent Obtained: Yes Indications: continuous blood pressure monitoring Staffing Anesthesiologist: Griselda Salmeron MD Performed by: anesthesiologist Preparation Sterility Preparation: hand hygiene performed prior to procedure, sterile gloves, drapes, and procedure tray, surgical cap used, mask used, sterile drape used during line insertion, skin prep agent completely dried prior to procedure Site Prep: Chlorhexidine Procedure Details Catheter Type: arterial line Catheter Size: 20 G Catheter Length: 2 in Micropuncture Kit Used: No Guidewire Used: Yes Guidewire Removed Intact: Yes Laterality: right Site: radial artery Ultrasound Guided: No Line Secured: Tegaderm and tape SIGNATURE: Griselda Salmeron MD PATIENT NAME: Sandra Schmitz DATE: 2023 TIME: 5:03 PM CSN: [id number] NoteHNO ID: [id number] Author: KEKE DENG APRN.CRNA Service: ? Author Type: Nurse Loading Machine Tool Setter Type: Anesthesia Procedure Notes Filed: 2023 14:19 Note Text: ANESTHESIOLOGY PROCEDURE NOTE Airway General Information Procedure Start Time/Medication Administration: 2023 1:49 PM Patient location during procedure: OR Timeout Performed Pre-procedure: timeout performed Consent Obtained: Yes Patient identity confirmed: arm band and patient Staffing CRUTCH MAKER: Keke Deng APRN.CRNA Indications and Patient Condition Indications for airway management: anesthesia Preoxygenated: yes anesthesia circuit Method: sleep Difficult Mask: No Airway Accessory: oral airway Final Airway Details Final airway type: endotracheal airway Final Endotracheal Airway: ETT Cuffed: yes Successful intubation technique: video laryngoscopy Devices used: intubating stylet and Jennings Endotracheal tube insertion site: oral Blade size: #3 ETT size (mm): 7.0 Measured from: lips Measurement (cm): 20 Placement verified by: capnometry Cormack-Lehane Classification: grade I - full view of glottis Number of attempts at approach: 1 Airway not difficult SIGNATURE: Keke Deng APRN.CRNA PATIENT NAME: Sandra Schmitz DATE: 2023 TIME: 2:19 PM CSN: [id number] NoteHNO ID: [id number] Author: ANGELICA SILVA MD Service: Hospital Medicine Author Type: Physician Type: Progress Notes Filed: 2023 13:44 Note Text: DEPARTMENT OF HOSPITAL MEDICINE PROGRESS NOTE SERVICE DATE: 2023 SERVICE TIME: 1:41 PM Hospital Medicine/Primary Attending: Angelica Silva MD NIGHT AND WEEKEND COVERAGE: [place] COVERAGE:Team 5 Subjective INTERVAL HPI: Patient is very pleasant and currently denies any chest pain or shortness of breath no dizziness No nausea vomiting or diarrhea MEDICATIONS: Reviewed Objective PHYSICAL EXAM: BP 125/72 Pulse 72 Temp (Src) 98.2 (Oral) Resp 16 Ht 5' 3 (1.60m) Wt 189 lb 6.4 oz (85.9kg) SpO2 95% BMI 33.56 kg/(m2). O2 Therapy: Room Air Physical Exam Performed GENERAL: Alert, no distress, cooperative LUNGS: Lungs clear to auscultation, Good diaphragmatic excursion CARDIAC: S1 and S2 ABDOMEN: Abdomen soft, non-tender, BS normal, No masses or organomegaly EXTREMITIES: no edema Lines, Drains, and Airways Line Duration Peripheral 07/15/23 1115 [facility] Short Right Forearm 20 Gauge 1 day DATA: Diagnostic tests reviewed for today's visit: Most recent labs and imaging results. 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 chronic LBBB 77 year old female, who presented to [facility] ER due to concerns for chest pressure with associated postural lightheadedness and dyspnea She was subsequently admitted to [facility] She had lexiscan stress test which was negative for inducible ischemia Also she had a transthoracic echocardiogram that showed reduced ejection fraction of <35%. Before her admission she was on Entresto 49/51 and metoprolol but that was causing her to be bradycardic and hypotensive also dizzy so both medications were stopped also she did not tolerate SGL2i. She was diuresed with IV Lasix And she was transferred to [facility] for consideration of inpatient CUT PLUG PACKER implantation given her left bundle branch block Patient currently reports significant improvement in chest pain and shortness of breath compared to admission X-ray of the chest no acute cardiopulmonary process proBNP improved Seen by EP appreciate input PT for CUT PLUG PACKER placement today Plan Continue IV Lasix ( Switch to PO soon) Monitor volume status Consulted with Dr. Wells, advanced heart failure specialist, CUT PLUG PACKER today Started on lower dose Entresto 24-26 mg half tablet twice daily Monitor kidney functions very carefully Monitor for hypotension Medication and Non-Pharmacologic VTE Prophylaxis/Anticoagulants Anticoagulant AND Antiplatelet Medications (From admission, onward) Start Dose Route Frequency Last Action Ordered Stop 07/15/23 0900 [Held on Transfer] heparin 5,000 Units injection (Held on Transfer since Sun2023 at 1320.Hold Reason: Hold Unreviewed Transfer Orders) 5,000 Units SUBCUTANEOUS EVERY 12 HOURS Given, 07/14 200407/15/2353 -- 07/13/232029 [Held on Transfer] aspirin, enteric coated 81 mg tab(s) (Held on Transfer since Sun2023 at 1320.Hold Reason: Hold Unreviewed Transfer Orders) 81 mg ORAL DAILY Given, 07/15 82407/13/232017 -- VTE Prophylaxis: VTE prophylaxis appropriate Disposition: Home Plan of care discussed with: Provider, RN, Patient SIGNATURE: Angelica Silva MD PATIENT NAME: Sandra Schmitz DATE: 2023 TIME: 1:41 PM etx [id number] Braintree Rehabilitation [id number] NoteHNO ID: [id number] Author: ANGELICA SILVA MD Service: Hospital Medicine Author Type: Physician Type: Progress Notes Filed: 07/15/2023 15:41 Note Text: DEPARTMENT OF HOSPITAL MEDICINE PROGRESS NOTE SERVICE DATE: 07/15/2023 SERVICE TIME: 3:33 PM Hospital Medicine/Primary Attending: Angelica Silva MD NIGHT AND WEEKEND COVERAGE: [place] COVERAGE:Team 5 Subjective INTERVAL HPI: Patient is very pleasant and currently denies any chest pain or shortness of breath no dizziness No nausea vomiting or diarrhea MEDICATIONS: Reviewed Objective PHYSICAL EXAM: BP 105/56 Pulse 81 Temp (Src) 97.7 (Oral) Resp 16 Ht 5' 3 (1.60m) Wt 190 lb 9.6 oz (86.5kg) SpO2 93% BMI 33.77 kg/(m2). O2 Therapy: Room Air Physical Exam Performed GENERAL: Alert, no distress, cooperative LUNGS: Lungs clear to auscultation, Good diaphragmatic excursion CARDIAC: S1 and S2 ABDOMEN: Abdomen soft, non-tender, BS normal, No masses or organomegaly EXTREMITIES: no edema Lines, Drains, and Airways Line Duration Peripheral 07/15/23 1115 [facility] Short Right Forearm 20 Gauge <1 day DATA: Diagnostic tests reviewed for today's visit: Most recent labs and imaging results. 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 chronic LBBB 77 year old female, who presented to [facility] ER due to concerns for chest pressure with associated postural lightheadedness and dyspnea She was subsequently admitted to [facility] She had lexiscan stress test which was negative for inducible ischemia Also she had a transthoracic echocardiogram that showed reduced ejection fraction of <35%. Before her admission she was on Entresto 49/51 and metoprolol but that was causing her to be bradycardic and hypotensive also dizzy so both medications were stopped also she did not tolerate SGL2i. She was diuresed with IV Lasix And she was transferred to [facility] for consideration of inpatient CUT PLUG PACKER implantation given her left bundle branch block Patient currently reports significant improvement in chest pain and shortness of breath compared to admission X-ray of the chest no acute cardiopulmonary process proBNP improved Seen by EP appreciate input Plan Continue IV Lasix ( Switch to PO soon) Monitor volume status Consult with Dr. Wells, advanced heart failure specialist, on Sunday morning. EP tentatively planning for CUT PLUG PACKER Sunday Started on lower dose Entresto 24-26 mg half tablet twice daily Medication and Non-Pharmacologic VTE Prophylaxis/Anticoagulants Anticoagulant AND Antiplatelet Medications (From admission, onward) Start Dose Route Frequency Last Action Ordered Stop 07/15/23 0900 heparin 5,000 Units injection 5,000 Units SUBCUTANEOUS EVERY 12 HOURS Given, 07/14 92107/15/23 0853 -- 07/13/232029 aspirin, enteric coated 81 mg tab(s) 81 mg ORAL DAILY Given, 07/14 92107/13/23 2018 -- VTE Prophylaxis: VTE prophylaxis appropriate Disposition: Home Plan of care discussed with: Provider, RN, Patient SIGNATURE: Angelica Silva MD PATIENT NAME: Sandra Schmitz DATE: July 15, 2023 TIME: 3:33 PM etx [id number] Braintree Rehabilitation [id number] NoteHNO ID: [id number] Author: ANGELICA SILVA MD Service: Hospital Medicine Author Type: Physician Type: Progress Notes Filed: 07/14/2023 20:15 Note Text: DEPARTMENT OF HOSPITAL MEDICINE PROGRESS NOTE SERVICE DATE: 07/14/2023 SERVICE TIME: 8:01 PM Hospital Medicine/Primary Attending: Angelica Silva MD NIGHT AND WEEKEND COVERAGE: [place] COVERAGE:Team 5 Subjective INTERVAL HPI: patient is very pleasant and currently denies any chest pain or shortness of breath no dizziness No nausea vomiting or diarrhea MEDICATIONS: Reviewed Objective PHYSICAL EXAM: BP 111/61 Pulse 69 Temp (Src) 97.5 (Oral) Resp 16 Ht 5' 3 (1.60m) Wt 190 lb 14.4 oz (86.6kg) SpO2 93% BMI 33.83 kg/(m2). O2 Therapy: Room Air Physical Exam Performed GENERAL: Alert, no distress, cooperative LUNGS: Lungs clear to auscultation, Good diaphragmatic excursion CARDIAC: S1 and S2 ABDOMEN: Abdomen soft, non-tender, BS normal, No masses or organomegaly EXTREMITIES: no edema Lines, Drains, and Airways Line Duration Peripheral 07/13/23 1445 Short Left Hand 22 Gauge 1 day DATA: Diagnostic tests reviewed for today's visit: Most recent labs and imaging results. 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 chronic LBBB 77 year old female, who presented to [facility] ER due to concerns for chest pressure with associated postural lightheadedness and dyspnea She was subsequently admitted to [facility] She had lexiscan stress test which was negative for inducible ischemia Also she had a transthoracic echocardiogram that showed reduced ejection fraction of <35%. Before her admission she was on Entresto 49/51 and metoprolol but that was causing her to be bradycardic and hypotensive also dizzy so both medications were stopped also she did not tolerate SGL2i. She was diuresed with IV Lasix And she was transferred to [facility] for consideration of inpatient CUT PLUG PACKER implantation given her left bundle branch block Patient currently reports significant improvement in chest pain and shortness of breath compared to admission X-ray of the chest no acute cardiopulmonary process proBNP improved Seen by EP appreciate input Plan Continue IV Lasix Monitor volume status Consult with Dr. Wells, advanced heart failure specialist, on Sunday morning. EP tentatively planning for CUT PLUG PACKER Sunday Started on lower dose Entresto 24-26 mg half tablet twice daily Medication and Non-Pharmacologic VTE Prophylaxis/Anticoagulants Anticoagulant AND Antiplatelet Medications (From admission, onward) Start Dose Route Frequency Last Action Ordered Stop 07/13/232029 aspirin, enteric coated 81 mg tab(s) 81 mg ORAL DAILY Given, 07/13 0856 07/13/232017 -- VTE Prophylaxis: VTE prophylaxis appropriate Disposition: To be determined Plan of care discussed with: Provider, RN, Patient SIGNATURE: Angelica Silva MD PATIENT NAME: Sandra Schmitz DATE: July 14, 2023 TIME: 8:01 PM etx [id number] Braintree Rehabilitation HospitalRmmnotig73-19-1282 NoteHNO ID: [id number] Author: ESTELITA LAMB APRN.CNP Service: Cardiovascular Medicine Author Type: Nurse Practitioner Type: Progress Notes Filed: 07/13/2023 09:28 Note Text: Heart and Vascular [facility] Department of Cardiovascular Medicine SECTION OF [facility] CARDIOLOG[facility] Progress Note Elements of this note, including but not limited to HPI, ROS, Physical Exam, Assessment and Plan were copied and pasted from previous visit notes completed within our department. Updates have been made where appropriate/noted and reflect current exam and medical decision making from date of this visit. Name: Sandra Schmitz : 1945 Primary Physician: Mandeep Houser DO Consulting Physician: Remington Cai MD Primary Knife Grinder: Dr. Oneill SERVICE DATE: July 13, 2023 Interval History: Patient seen and examined laying in bed - no acute distress NO events reported overnight Patient with some reported orthopnea at HS and still requiring O2 Feels bloated. NO chest pain Has some dizziness/lightheadedness with position changes >> no near syncope or syncope >> Improved since stopping Entresto and BB Tele shows SB/SR HR 50-60's Labs reviewed with mild increase in creatinine this AM. 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 - normal MPI on admission - echo 09/2022: EF 29% - repeat echo this admission: EF 26%. Left ventricular systolic function is severely decreased regionally. Global LV myocardial strain is abnormal. Grade II left ventricular diastolic dysfunction. - historically on BB and ARNI >> Theses are on hold due to hypotension, dizziness and bradycardia - of note, the patient has had difficult with tolerating ARNI and SGLT2-I (Farxiga) per her report. Did best on ARB (losartan). - continues on lasix 40 mg IV daily >> mild increase in RF overnight. Already received AM lasix. - net negative 1.8 liters, weight unchanged overnight. LBBB - EKG 07/10/2023: NORMAL SINUS RHYTHM . LEFT BUNDLE BRANCH BLOCK . ABNORMAL ECG - QRS = 176 mx - pending CUT PLUG PACKER-D implant Palpitations - present GSE MECHANIC - zio 06/2023: Patient had a min HR of 28 bpm, max HR of 145 bpm, and avg HR of 70 bpm. Predominant underlying rhythm was Sinus Rhythm. Bundle Branch Block/IVCD was present. 4 Supraventricular Tachycardia runs occurred, the run with the fastest interval lasting 4 beats with a max rate of 145 bpm, the longest lasting 52.5 secs with an avg rate of 111 bpm. Second Degree AV Block-Mobitz I (Wenckebach) was present. Isolated SVEs were rare (< 1.0%), SVE Couplets were rare (<1.0%), and SVE Triplets were rare (<1.0%). Isolated VEs were rare (<1.0%, 44), VE Couplets were rare (<1.0%, 1), and VE Triplets were rare (<1.0%, 3). Ventricular Trigeminy was present. - no arrhythmia noted on admission - call placed to [facility] EP service to discuss considerations for expedited CUT PLUG PACKER-D CAD - chest pain on admission has resolved - [facility] 10/2021: Moderate LAD and D1 proximal disease 40%, normal LM, LCx and RCA with mild dx. - MPI yesterday shows no ischemia or infarct - BB on hold due to bradycardia, hypotension and dizziness - continues on ASA and Zetia Respiratory Failure - remains on O2 via NC - reports improvement in breathing status since admission Spoke with Dr. Wellington last evening who agrees with transfer to [facility] for refractory HF despite medical therapy. Patient pending transfer to [facility] via medicine team with consults to EP and advanced heart failure. Patient aware of plan and agreeable. Case discussed with Dr. Lobo and nursing staff. Estelita Lamb APRN.DIRECTOR OF DONOR RELATIONS 07/13/2023 9:21 AM PAST MEDICAL HISTORY PAST MEDICAL HISTORY Diagnosis Date Acute acalculous cholecystitis 05/30/2020 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 09/22/2020 Acute on chronic systolic CHF (congestive heart failure) (HCC) 05/03/2020 Aspiration pneumonia (HCC) 05/30/2020 Chest pain 05/03/2020 Chest pressure 01/23/2013 Chronic diastolic congestive heart failure (HCC) 02/14/2021 Clostridium difficile diarrhea 09/28/2020 Complete uterovaginal prolapse Cystocele, midline Essential hypertension 06/14/2020 Homozygous Factor V Leiden mutation (HCC) 05/03/2020 Hypothyroidism IBS (irritable bowel syndrome) 01/23/2013 Palpitation CHRONIC Post-operative state 05/24/2020 Rectocele 05/25/2020 Shortness of breath 05/03/2020 Status post laparoscopic hysterectomy 05/30/2020 Tubular adenoma of colon 12/09/2020 Uterine prolapse 05/03/2020 PAST SURGICAL HISTORY Procedure Laterality Date COLONOSCOPY 01/07/2015 COLONOSCOPY 12/05/2021 repeat in 5 years COLONOSCOPY GEN ANES 12/06/2009 X3 LAST ONE IN 2009 EGD 11/08/2012 (more content not included)...[facility] [id number] Miscellaneous Notes* Telephone Encounter - Rahul Bee MD - 07/13/2023 7:23 AM EST Hospital Medicine Transfer Received page for transfer request from [facility] to [facility]: Sandra Schmitz is 77 year old female who presented with non ischemic decompensated heart failure EF 26%. Suspected runs of tachycardia of unclear origin. Being transferred for possible CUT PLUG PACKER. Cannot tolerate betablocker. Currently SBP in 100s. No ICD before. Mild CAD. Reason for transfer: Possible CUT PLUG PACKER placement Accepted to hospital medicine service at 7:26PM Rahul Bee MD 7:23 AM documented in this encounterK[facility]-29-[facility]24 NoteHNO ID: [id number] Author: ESTELITA LAMB APRN.DIRECTOR OF DONOR RELATIONS Service: Cardiovascular Medicine Author Type: Nurse Practitioner Type: Progress Notes Filed: 07/12/2023 18:56 Note Text: Heart and V[facility] Department of Cardiovascular Medicine [facility] OF [facility] Progress Note Elements of this note, including but not limited to HPI, ROS, Physical Exam, Assessment and Plan were copied and pasted from previous visit notes completed within our department. Updates have been made where appropriate/noted and reflect current exam and medical decision making from date of this visit. Name: Sandra Schmitz : 1945 Primary Physician: Mandeep Houser DO Consulting Physician: Remington Cai MD Primary Knife Grinder: Dr. Oneill SERVICE DATE: July 12, 2023 Interval History: Patient seen and examined sitting at the side of the bed - family at bedside No acute events overnight Patient denies chest pain, palpitations on increase in SOB Dizziness and lightheadedness have improved since stopping Entresto and BB She is on O2 - she does not wear this at home. Has had low O2 sats per her report. She complains of GI discomfort >> this is a chronic IBS issue per her report We reviewed her stress test from yesterday Echo is pending for today Labs and tele reviewed ASSESSMENT AND RECOMMENDATIONS Severe LV Dysfunction Combined Systolic and Diastolic Heart Failure NICM - presented with SOB, chest pain and lightheadedness - [facility] 10/2021: Moderate LAD and D1 proximal disease 40%, normal LM, LCx and RCA with mild dx. - normal MPI on admission - echo 09/2022: EF 29% - repeat echo pending - historically on BB and ARNI >> Theses are on hold due to hypotension, dizziness and bradycardia - continues on lasix 40 mg IV daily - net negative 1.2 liters, weight down 0.9 kg since admission LBBB - pending CUT PLUG PACKER-D implant Palpitations - present GSE MECHANIC - zio 06/2023: Patient had a min HR of 28 bpm, max HR of 145 bpm, and avg HR of 70 bpm. Predominant underlying rhythm was Sinus Rhythm. Bundle Branch Block/IVCD was present. 4 Supraventricular Tachycardia runs occurred, the run with the fastest interval lasting 4 beats with a max rate of 145 bpm, the longest lasting 52.5 secs with an avg rate of 111 bpm. Second Degree AV Block-Mobitz I (Wenckebach) was present. Isolated SVEs were rare (< 1.0%), SVE Couplets were rare (<1.0%), and SVE Triplets were rare (<1.0%). Isolated VEs were rare (<1.0%, 44), VE Couplets were rare (<1.0%, 1), and VE Triplets were rare (<1.0%, 3). Ventricular Trigeminy was present. - no arrhythmia noted on admission - call placed to [facility] EP service to discuss considerations for expedited CUT PLUG PACKER-D CAD - chest pain on admission has resolved - [facility] 10/2021: Moderate LAD and D1 proximal disease 40%, normal LM, LCx and RCA with mild dx. - MPI yesterday shows no ischemia or infarct - BB on hold due to hypotension and dizziness - continues on ASA and Zetia Respiratory Failure - remains on O2 via NC - reports improvement in breathing status since admission Case discussed with Dr. Castro and nursing staff. Estelita Lamb APRN.DIRECTOR OF DONOR RELATIONS 07/12/2023 1:26 PM ADDENDUM: Echo today shows EF 26% Discussed patient with Dr. Wellington ant [facility] who is agreeable for patient transfer for refractory heart failure despite medications. We will start transfer process via medicine team with consult to EP and advanced heart failure at [facility]. Consideration for CUT PLUG PACKER-D implant per Dr. Wellington and EP team. Estelita Lamb APRN.DIRECTOR OF DONOR RELATIONS 07/12/23 6:55 PM PAST MEDICAL HISTORY PAST MEDICAL HISTORY Diagnosis Date Acute acalculous cholecystitis 05/30/2020 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 09/22/2020 Acute on chronic systolic CHF (congestive heart failure) (HCC) 05/03/2020 Aspiration pneumonia ([facility]) 05/30/2020 Chest pain 05/03/2020 Chest pressure 01/23/2013 Chronic diastolic congestive heart failure (HCC) 02/14/2021 Clostridium difficile diarrhea 09/28/2020 Complete uterovaginal prolapse Cystocele, midline Essential hypertension 06/14/2020 Homozygous Factor V Leiden mutation (HCC) 05/03/2020 Hypothyroidism IBS (irritable bowel syndrome) 01/23/2013 Palpitation CHRONIC Post-operative state 05/24/2020 Rectocele 05/25/2020 Shortness of breath 05/03/2020 Status post laparoscopic hysterectomy 05/30/2020 Tubular adenoma of colon 12/09/2020 Uterine prolapse 05/03/2020 PAST SURGICAL HISTORY Procedure Laterality Date COLONOSCOPY 01/07/2015 COLONOSCOPY 12/05/2021 repeat in 5 years COLONOSCOPY GEN ANES 12/06/2009 X3 LAST ONE IN 2009 EGD 11/08/2012 EGD 12/05/2021 PAST SURGICAL HISTORY OF 05/14/1999 left foot bunionectomy w/screws PAST SURGICAL HISTORY OF 05/14/1981 ectopic w/tube removal PAST SURGICAL HISTORY OF 2009 CYST REMOVED FROM UTERUS PAST SURGICAL HIST (more content not included)...[facility] [id number] Note HNO ID: [id number] Author: REMINGTON CAI MD Service: Hospital Medicine Author Type: Physician Type: Progress Notes Filed: 07/12/2023 10:40 Note Text: DEPARTMENT OF HOSPITAL MEDICINE PROGRESS NOTE SERVICE DATE: 07/12/2023 SERVICE TIME: 9:21 AM Hospital Medicine/Primary Attending: Remington Cai MD NIGHT AND WEEKEND COVERAGE: [place] COVERAGE: Nights: [phone], please page [facility] Hospitalist Night coverage pager [phone]. Reason for Admission: Acute decompensated heart failure concern for ventricular tachycardia being the precipitating factor INTERVAL HPI: I called electrophysiology and they had no openings. Could page 2 Bl[facility] General densitometer reader on-call Dr. Castro who will see if Dr. Wellington at [facility] did not do the pacer defibrillator. My concern being if she has another run of the rapid heartbeat we have trouble keeping her on beta-lorenzo and Entresto because of hypotension that she may have sustained V. tach or A-fib with RVR Gangel and pulmonary edema or worse. ASSESSMENT/PLAN Sinus bradycardia no events-Entresto and beta-lorenzo held Nuclear stress test-see below Cell phone will not accepttext sent page number to concerning pacer defibrillator placement timing CHECK LIST Goal for glucose 100-180 At goal Cultures negative thus far other than those noted:None Vital signs: Reviewed labs Problem list reviewed Medication list reviewed Reviewed new notes Probable discharge- Consultants: Dr. Lobo for cardiology PROCEDURES: NONE Disposition: To be determined EK07/10/2023 sinus rhythm left bundle branch block with her last prior EKG being the same axis and amplitude but the complex now has moved from QRS duration of 100 ms to 172 ms and this is a new left bundle branch block Echocardiogram: 09/21/2022 - The left ventricle is mildly dilated. Left ventricular systolic function is severely decreased. EF = 29 ? 5% (2D biplane) Grade I left ventricular diastolic dysfunction. Segmental wall motion abnormalities as described above. - The right ventricle is normal in size. Right ventricular systolic function is normal. - There are no significant valvular abnormalities. NUCLEAR STRESS TEST: 07/11/2023 1. SPECT Perfusion Study: Normal Perfusion but abnormal EF. 2. There is no scintigraphic evidence for inducible ischemia. 3. No evidence of scarred myocardium. 4. Left ventricle is severely dilated. The left ventricle systolic function is severely decreased. 5. This is a high risk scan. Gated Stress IR:3D LVEF % 24 Recent Labs 07/12/2361607/11/2360107/10/23 1047 07/10/23 0722 CK 51 49 57 -- MCV 92.0 91.1 -- 91.5 MCH 28.8 28.2 -- 29.9 MPV 10.2 10.2 -- 10.0 Recent Labs 07/12/23 0607/11/23 0602 07/10/23 0722 WBC 7.69 6.94 8.63 RBC 4.23 4.36 4.68 HB 12.2 12.3 14.0 HCT 38.9 39.7 42.8 PLT 273 290 313 MCV 92.0 91.1 91.5 MCH 28.8 28.2 29.9 MPV 10.2 10.2 10.0 ABSNEUT 3.82 3.26 4.45 NEUTP 49.7 47.1 51.5 LYMPHP 35.5 39.9 35.7 MONOP 9.9 8.6 7.9 EODINP 3.5 3.0 3.0 Recent Labs 07/12/23 0607/11/23 0602 07/10/23 0722 GLUC 89 91 105* NA 139 141 141 K 3.8 4.2 4.3 CHLOR 103 103 104 CO2 28 29 28 CREAT 0.95 0.90 0.89 BUN 34* 29* 33* ANION 8* 9 9 CA 8.8 9.2 9.9 TPROT -- -- 7.5 ALB 3.6* 3.6* 4.2 TBILI -- -- 0.3 ALKPHOS -- -- 61 AST -- -- 17 ALT -- -- 12 No results for input(s): CRP in the last 720 hours. No results for input(s): LACT in the last 168 hours. Recent Labs 07/12/23 0617 07/11/23 0602 07/10/23 1047 07/10/23 0722 BUN 34* 29* -- 33* CREAT 0.95 0.90 -- 0.89 CA 8.8 9.2 -- 9.9 P 3.7 3.9 3.6 -- MG 2.1 2.0 2.0 -- Most recent labs HOSPITAL COURSE: Sandra Schmitz is a 77 year old female presented with past medical history of severe left ventricular systolic dysfunction with combined systolic diastolic heart failure severe cardiomyopathy nonischemic with normal coronaries with desynchronized left ventricular contractions who presents with chest discomfort and some shortness of breath to the emergency department. She was recently seen in the office ()06/04/2023) by Dr. Oneill for cardiology. She had been having palpitations that he was concerned about ventricular tachycardia or paroxysmal atrial fibrillation. She has seen Dr. Greenfield the densitometer reader. She is to be scheduled for pacer defibrillator implantation. Her exam shows some crackles in the right base HJR to the jaw. Dr. Oneill thought that she was probably having runs of ventricular tachycardia or atrial fibrillation palpitations she was experiencing prior to this. On my examination at admission she has some tenderness over scalene muscles and also supers scapular area and over her chest wall with some increased work of breathing and some tachypnea at rest on room air with crackles in the right base it seems she has some low-grade bronchospasm and needs diuresis. Dr. Virk (more content not included)...[id number] NoteHNO ID: [id number] Author: ESTELITA LAMB APRN.TIM Service: Cardiovascular Medicine Author Type: Nurse Practitioner Type: Plan of Care Filed: 07/11/2023 15:22 Note Text: Patient stress test reviewed. Shows no ischemia but low EF. Echo planned for tomorrow. Pending CUT PLUG PACKER-D as OP >>> Dr. Sams is facilitating discussion on timing of implant. Will follow. Estelita Lamb APRN.DIRECTOR OF DONOR RELATIONS Cardiology Nurse Practitioner Section of Regional Cardiology [facility] Dept of Cardiovascular Medicine [facility] [place] [address] [address] Office Office Mkkqnv [id number] NoteHNO ID: [id number] Author: REMINGTON CAI MD Service: Hospital Medicine Author Type: Physician Type: Progress Notes Filed: 07/11/2023 14:17 Note Text: DEPARTMENT OF HOSPITAL MEDICINE PROGRESS NOTE SERVICE DATE: 07/11/2023 SERVICE TIME: 1:06 PM Hospital Medicine/Primary Attending: Remington Cai MD NIGHT AND WEEKEND COVERAGE: [place] COVERAGE: Nights: [phone], please page [facility] Night coverage pager [phone]. Reason for Admission: Acute decompensated heart failure concern for ventricular tachycardia being the precipitating factor INTERVAL HPI: Spoke with Dr. Lobo and holding her other cardiac meds except for Lasix for now as she is having orthostatic symptomatology. She has had no dysrhythmia since just before she came to the emergency department. She seems okay at rest on oxygen. Her JVD is a couple centimeters higher today than yesterday and she still has HJR to the jaw a little bit more bibasilar crackles and more pronounced gallop that is palpable but not audible ASSESSMENT/PLAN Sinus bradycardia no events-Entresto and beta-lorenzo held Nuclear stress test-see below [employer] message sent to concerning pacer defibrillator placement timing CHECK LIST Goal for glucose 100-180 At goal Cultures negative thus far other than those noted:None Vital signs: Reviewed labs Problem list reviewed Medication list reviewed Reviewed new notes Probable discharge- Consultants: Dr. Lobo for cardiology PROCEDURES: NONE Disposition: To be determined EK07/10/2023 sinus rhythm left bundle branch block with her last prior EKG being the same axis and amplitude but the complex now has moved from QRS duration of 100 ms to 172 ms and this is a new left bundle branch block Echocardiogram: 09/21/2022 - The left ventricle is mildly dilated. Left ventricular systolic function is severely decreased. EF = 29 ? 5% (2D biplane) Grade I left ventricular diastolic dysfunction. Segmental wall motion abnormalities as described above. - The right ventricle is normal in size. Right ventricular systolic function is normal. - There are no significant valvular abnormalities. NUCLEAR STRESS TEST: 07/11/2023 1. SPECT Perfusion Study: Normal Perfusion but abnormal EF. 2. There is no scintigraphic evidence for inducible ischemia. 3. No evidence of scarred myocardium. 4. Left ventricle is severely dilated. The left ventricle systolic function is severely decreased. 5. This is a high risk scan. Gated Stress IR:3D LVEF % 24 Recent Labs 07/11/23 0607/10/23 1047 07/10/23 0722 CK 49 57 -- MCV 91.1 -- 91.5 MCH 28.2 -- 29.9 MPV 10.2 -- 10.0 Recent Labs 07/11/23 0607/10/23 0722 WBC 6.94 8.63 RBC 4.36 4.68 HB 12.3 14.0 HCT 39.7 42.8 PLT 290 313 MCV 91.1 91.5 MCH 28.2 29.9 MPV 10.2 10.0 ABSNEUT 3.26 4.45 NEUTP 47.1 51.5 LYMPHP 39.9 35.7 MONOP 8.6 7.9 EODINP 3.0 3.0 Recent Labs 07/11/23 0602 07/10/23 0722 GLUC 91 105* NA 141 141 K 4.2 4.3 CHLOR 103 104 CO2 29 28 CREAT 0.90 0.89 BUN 29* 33* ANION 9 9 CA 9.2 9.9 TPROT -- 7.5 ALB 3.6* 4.2 TBILI -- 0.3 ALKPHOS -- 61 AST -- 17 ALT -- 12 No results for input(s): CRP in the last 720 hours. No results for input(s): LACT in the last 168 hours. Recent Labs 07/11/23 0602 07/10/23 1047 07/10/23 0722 BUN 29* -- 33* CREAT 0.90 -- 0.89 CA 9.2 -- 9.9 P 3.9 3.6 -- MG 2.0 2.0 -- Most recent labs HOSPITAL COURSE: Sandra Schmitz is a 77 year old female presented with past medical history of severe left ventricular systolic dysfunction with combined systolic diastolic heart failure severe cardiomyopathy nonischemic with normal coronaries with desynchronized left ventricular contractions who presents with chest discomfort and some shortness of breath to the emergency department. She was recently seen in the office ()06/04/2023) by Dr. Oneill for cardiology. She had been having palpitations that he was concerned about ventricular tachycardia or paroxysmal atrial fibrillation. She has seen Dr. Greenfield the densitometer reader. She is to be scheduled for pacer defibrillator implantation. Her exam shows some crackles in the right base HJR to the jaw. Dr. Oneill thought that she was probably having runs of ventricular tachycardia or atrial fibrillation palpitations she was experiencing prior to this. On my examination at admission she has some tenderness over scalene muscles and also supers scapular area and over her chest wall with some increased work of breathing and some tachypnea at rest on room air with crackles in the right base it seems she has some low-grade bronchospasm and needs diuresis. Dr. Lobo will evaluate the patient that we will watch her rhythm and I will send a copy of the admission to Dr. Greenfield. Principal Problem: Acute decompensated heart failure (HCC) Active Problems: Acute on chronic systolic (more content not included)...[facility] 06-12-2023 NoteHNO ID: [id number] Author: FLACA GREENFIELD MD Service: ? Author Type: Physician Type: Progress Notes Filed: 06/12/2023 16:02 Note Text: Heart [facility] V[facility] [place] [facility] SECTION OF CARDIAC PACING and ELECTROPHYSIOLOGY OUTPATIENT VISIT DATE June 12, 2023 OUTPATIENT VISIT TYPE NEW PRIMARY CARE PHYSICIAN: Mandeep Houser [address] [place] [address] REFERRING PHYSICIAN: Santo Oneill MD. HISTORY OF PRESENT ILLNESS: 77-year-old female with history of nonischemic cardiomyopathy, severe LV systolic function, LVEF of 30% despite GDMT, LBBB with QRS of 170 ms, was referred for consideration of CUT PLUG PACKER-D system implantation for prevention of sudden cardiac and heart failure management. Ms. Schmitz presents accompanied by her daughter. She reports feeling well, although has baseline exertional dyspnea, denies palpitation, chest pain, or syncope. She is compliant with her medical therapy. ECG shows sinus bradycardia 59 bpm with LBBB and QRS of 170 ms. PAST MEDICAL HISTORY Diagnosis Date Acute acalculous cholecystitis 05/30/2020 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 09/22/2020 Acute on chronic systolic CHF (congestive heart failure) ([facility]) 05/03/2020 Aspiration pneumonia ([facility]) 05/30/2020 Chest pain 05/03/2020 Chest pressure 01/23/2013 Chronic diastolic congestive heart failure ([facility]) 02/14/2021 Clostridium difficile diarrhea 09/28/2020 Complete uterovaginal prolapse Cystocele, midline Essential hypertension 06/14/2020 Homozygous Factor V Leiden mutation ([facility]) 05/03/2020 Hypothyroidism IBS (irritable bowel syndrome) 01/23/2013 Palpitation CHRONIC Post-operative state 05/24/2020 Rectocele 05/25/2020 Shortness of breath 05/03/2020 Status post laparoscopic hysterectomy 05/30/2020 Tubular adenoma of colon 12/09/2020 Uterine prolapse 05/03/2020 MEDICATIONS: furosemide (LASIX) 40 mg tabletTake 1 tablet by mouth once daily.Disp: 30 tabletRfl: 3 sacubitril-valsartan (ENTRESTO) 49-51 mg tabletTake 1 tablet by mouth two times a day.Disp: 60 tabletRfl: 3 metoprolol succinate ER (TOPROL XL) 25 mg 24 hr tabletTake 1 tablet by mouth once daily.Disp: 90 tabletRfl: 0 levothyroxine (LEVOXYL) 88 mcg tabletTake 1 tablet by mouth once daily. Take on empty stomach. For ThyroidDisp: 90 tabletRfl: 1 cyanocobalamin (VITAMIN B-12) 1,000 mcg tabTake 1 tablet by mouth once daily.Disp: 30 tabletRfl: 2 benzonatate (TESSALON PERLES) 100 mg capsuleTake 1 capsule by mouth three times daily as needed for cough.Disp: 21 capsuleRfl: 0 Cholecalciferol, Vitamin D3, 50 mcg (2,000 unit) capTake 2 capsules by mouth once daily.Disp: Rfl: OREGANO OIL ORALTake by mouth once daily.Disp: Rfl: L. acidophilus/L. rhamnosus (FLORAJEN WOMEN ORAL)Take 1 tablet by mouth as needed.Disp: Rfl: ZINC ORALTake 50 mg by mouth as needed.Disp: Rfl: aspirin, enteric coated (ECOTRIN LOW STRENGTH) 81 mg EC tabletTake 1 tablet by mouth once daily.Disp: Rfl: 0 dapagliflozin propanediol (FARXIGA) 10 mg tabletTake 1 tablet by mouth daily with breakfast.Disp: 30 tabletRfl: 3 liothyronine (CYTOMEL) 5 mcg tabletTake 1 tablet by mouth once daily. In the morning for thyroidDisp: 90 tabletRfl: 1 (Patient not taking: Reported on 06/12/2023) meloxicam (MOBIC) 15 mg tabletTake 1 tablet by mouth once daily. As needed for joint pain, Take with food.Disp: 30 tabletRfl: 1 (Patient not taking: Reported on 06/12/2023) promethazine (PHENERGAN) 6.25 mg/5 mL syrupTake 5-10ml by mouth 4 times daily as needed for coughDisp: 200 mLRfl: 0 (Patient not taking: Reported on 06/12/2023) omeprazole (PRILOSEC) 40 mg capsuleTake 1 capsule by mouth once daily.Disp: 30 capsuleRfl: 2 (Patient not taking: Reported on 06/12/2023) ondansetron (ZOFRAN) 4 mg tabletTake 1 tablet by mouth once daily as needed (for nausea.).Disp: 30 tabletRfl: 0 (Patient not taking: Reported on 06/12/2023) REVIEW OF SYSTEMS: Review of Systems Constitutional: Negative for fatigue and fever. HENT: Negative for hearing loss. Eyes: Negative for pain. Respiratory: Positive for shortness of breath. Negative for cough. Cardiovascular: Negative for chest pain, palpitations and leg swelling. Gastrointestinal: Negative for abdominal pain and blood in stool. Endocrine: Negative for cold intolerance. Genitourinary: Negative for hematuria. Musculoskeletal: Negative for back pain. Skin: Negative for pallor. Neurological: Negative for dizziness and syncope. Psychiatric/Behavioral: The patient is not nervous/anxious. PHYSICAL EXAMINATION: BP 115/74 (BP Site: Left Arm, BP Position: Sitting, BP Cuff Size: Large Adult) Pulse 68 Ht 5' 3 (1.6 m) Wt 190 lb (86.2 kg) SpO2 95% BMI 33.66 kg/m? BP w/Orthostatic Vitals Date and Time Orthostatic BP Orthostatic Pulse BP Pulse BP Position BP Site BP Cuff Size 06/12/23 1513 -- -- 115/74 68 Sitting Left Arm Large Adult Physic (more content not included)...[facility]01-04-2024 History of Present illness Narrative* Luzma Vega RT(R) - 05/17/2023 1:20 PM EST Radiology Service Progress Note PATIENT NAME: Sandra Schmitz DATE OF SERVICE: May 17, 2023 TIME: 1:31 PM PATIENT IDENTITY VERIFICATION COMPLETED USING TWO (2) IDENTIFIERS: Name and Date of confirmedby patient verbally. FALL SCREENING: Has the patient had 2 falls in the last year or 1 fall with injury or currently using an Ambulatory Assistive Device (Walker, Cane, Wheelchair, Crutches, etc.)? No PATIENT GENDER DATA: Female. status: : No status: NO. PATIENT RELEVANT IMPLANT DATA REVIEWED: Not Applicable RADIOLOGY DEPARTMENT: General X-ray: Exam(s) Completed: Chest X-Ray PERIPHERAL IV DATA: Not applicable SIGNED BY: RT Radha(R) May 17, 2023 1:31 PM documented [facility] Miscellaneous Notes* Telephone Encounter - Bria Shah MA - 04/26/2023 2:37 PM EST Patient notified of results, verbalizes understanding of instructions. Bria Shah MA * Telephone Encounter - Mandeep Houser DO - 04/26/2023 2:24 PM EST Please inform patient that her mammogram is normal/negative. She will need routine screening mammogram in 1 year. Thanks CELIA Gamez documented in this encounterK[facility]12-12-2023 Miscellaneous Notes* Telephone Encounter - Vinita Harman - 04/24/2023 2:06 PM EST Patient is scheduled at on 05/28/[address] Angel Gaxiola. * Telephone Encounter - Mandeep Houser DO - 04/17/2023 4:59 PM EST Patient is supposed to be seen by Costing Manager / Cardiology per recommendations by Dr. Oneill. She is asking office if this is scheduled yet? Please clarify Mandeep Houser DO documented in this encounterK[facility]11-27-2023 History of Present illness Narrative* Santo Oneill MD - 04/09/2023 5:19 PM EST Images from the original note were not included. Santo Oneill MD Interventional Cardiology [address] [place] [address] Chief Complaint Patient presents with: Established Patient Follow-Up HISTORY OF PRESENT ILLNESS: Ms. Schmitz is a 77 year old female in my office today status post cardiac catheterization which revealed nonobstructive coronary artery disease severe LV systolic dysfunction with severe cardiomyopathy and left bundle branch block and desynchronized left ventricle She is maximized on medical therapy She is having more symptoms with exertional dyspnea more than usual EKG showed left bundle branch Cardiac Risk Factors age (male over 45, female over 55), hyperlipidemia, obesity, hypertension, family history of CAD PAST MEDICAL HISTORY Diagnosis Date Acute acalculous cholecystitis 05/30/2020 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 09/22/2020 Acute on chronic systolic CHF (congestive heart failure) (HCC) 05/03/2020 Aspiration pneumonia (HCC) 05/30/2020 Chest pain 05/03/2020 Chest pressure 01/23/2013 Chronic diastolic congestive heart failure (HCC) 02/14/2021 Clostridium difficile diarrhea 09/28/2020 Complete uterovaginal prolapse Cystocele, midline Essential hypertension 06/14/2020 Homozygous Factor V Leiden mutation (HCC) 05/03/2020 Hypothyroidism IBS (irritable bowel syndrome) 01/23/2013 Palpitation CHRONIC Post-operative state 05/24/2020 Rectocele 05/25/2020 Shortness of breath 05/03/2020 Status post laparoscopic hysterectomy 05/30/2020 Tubular adenoma of colon 12/09/2020 Uterine prolapse 05/03/2020 PAST SURGICAL HISTORY Procedure Laterality Date COLONOSCOPY 01/07/2015 COLONOSCOPY 12/05/2021 repeat in 5 years COLONOSCOPY GEN ANES 12/06/2009 X3 LAST ONE IN 2009 EGD 11/08/2012 EGD 12/05/2021 PAST SURGICAL HISTORY OF 05/14/1999 left foot bunionectomy w/screws PAST SURGICAL HISTORY OF 05/14/1981 ectopic w/tube removal PAST SURGICAL HISTORY OF 2009 CYST REMOVED FROM UTERUS PAST SURGICAL HISTORY OF 05/24/2020 TVH, partial colpectomy, anterior colporrhaphy, Dennis transobturator midurethral sling, cystourethroscopy, rectocele repair with perineorrhaphy, laparoscopic lysis of adhesions and excision of bilateral adnexal structures PAST SURGICAL HISTORY OF 09/07/2020 Laparoscopic cholecystectomy with intraoperative cholangiograms. Dr. Ragsdale FAMILY HISTORY Problem Relation Age of Onset Blood Disease Mother Coronary Artery Disease Mother Cancer Mother lung Blood Disease Father Coronary Artery Disease Father Heart Father pacemaker Diabetes Father Breast Cancer Sister younger sis. COPD Brother Hypertension Brother Heart disease Brother Coronary Artery Disease Maternal Grandmother Ischemic Heart Disease Maternal Grandfather Coronary Artery Disease Maternal Grandfather Coronary Artery Disease Daughter Social History Tobacco Use Smoking status: Former Types: Cigarettes Quit date: 10/22/2002 Years since quittin.4 Smokeless tobacco: Never Vaping Use Vaping Use: Never used Substance Use Topics Alcohol use: No Drug use: No ALLERGIES Allergen Reactions Emilio Inhibitors Other: See Comments Short of breath, symptoms of heart failure Beta-Blockers (Beta* Other: See Comments Short of breath, symptoms of heart failure Augmentin [Amoxicil* GI Upset Codeine Mental Status Change Patient felt like she was made out of lead Lipitor [Atorvastat* Myalgia Muscle aches Sulfa (Sulfonamide * Other: See Comments Amlodipine Other: See Comments lightheaded Medications: Current Outpatient Medications Medication Sig Dispense Refill levothyroxine (LEVOXYL) 88 mcg tablet Take 1 tablet by mouth once daily. Take on empty stomach. ForThyroid 90 tablet 1 meloxicam (MOBIC) 15 mg tablet Take 1 tablet by mouth once daily. As needed for joint pain, Take with food. 30 tablet 1 furosemide (LASIX) 20 mg tablet Take 1 tablet by mouth once daily as needed. 90 tablet 3 cyanocobalamin (VITAMIN B-12) 1,000 mcg tab Take 1 tablet by mouth once daily. 30 tablet 2 benzonatate (TESSALON PERLES) 100 mg capsule Take 1 capsule by mouth three times daily as needed for cough. 21 capsule 0 promethazine (PHENERGAN) 6.25 mg/5 mL syrup Take 5-10ml by mouth 4 times daily as needed for cough 200 mL 0 Cholecalciferol, Vitamin D3, 50 mcg (2,000 unit) cap Take 2 capsules by mouth once daily. OREGANO OIL ORAL Take by mouth once daily. L. acidophilus/L. rhamnosus (FLORAJEN WOMEN ORAL) Take by mouth once daily. ondansetron (ZOFRAN) 4 mg tablet Take 1 tablet by mouth once daily as needed (for nausea.). 30 tablet 0 ZINC ORAL Take by mouth as needed. aspirin, enteric coated (ECOTRIN LOW STRENGTH) 81 mg EC tablet Take 1 tablet by mouth once daily. 0 metoprolol succinate ER (TOPROL XL) 25 mg 24 hr tablet Take 1 tablet by mouth once daily. 90 tablet0 sacubitril-valsartan (ENTRESTO) 24-26 mg tablet Take 1 tablet by mouth two times a day. 60 tablet 3 omeprazole (PRILOSEC) 40 mg capsule Take 1 capsule by mouth once daily. (Patient not taking: Reported on 04/09/2023) 30 capsule 2 Current Facility-Administered Medications Medication Dose Route Frequency Provider Last Rate Last Admin perflutren lipid microspheres 1.3 mL in NaCl (PF) 0.9% 10 mL injection (DEFINITY) INTRAVENOUS DIRECTED PRSanto Jaquez MD sodium chloride 0.9 % (flush) 10 mL (BD POSIFLUSH) 10 mL INTRAVENOUS DIRECTED Santo Hernandez MD perflutren lipid microspheres 1.3 mL in NaCl (PF) 0.9% 10 mL injection (DEFINITY) INTRAVENOUS DIRECTED PRSanto Jaquez MD sodium chloride 0.9 % (flush) 10 mL (BD POSIFLUSH) 10 mL INTRAVENOUS DIRECTED PRSanto Jaquez MD Review of Systems Constitutional: Negative for chills, diaphoresis, fever, malaise/fatigue and weight loss. HENT: Negative for congestion, ear discharge, ear pain, hearing loss, nosebleeds, sinus pain, sore throat and tinnitus. Eyes: Negative for blurred vision, double vision, photophobia, pain, discharge and redness. Respiratory: Positive for shortness of breath. Negative for cough, hemoptysis, sputum production, wheezing and stridor. Cardiovascular: Negative for chest pain, palpitations, orthopnea, claudication, leg swelling and PND. Gastrointestinal: Negative for abdominal pain, blood in stool, constipation, diarrhea, heartburn, melena, nausea and vomiting. Genitourinary: Negative for dysuria, flank pain, frequency, hematuria and urgency. Musculoskeletal: Negative for back pain, falls, joint pain, myalgias and neck pain. Skin: Negative for itching and rash. Neurological: Negative for dizziness, tingling, tremors, sensory change, speech change, focal weakness, seizures, loss of consciousness, weakness and headaches. Endo/Heme/Allergies: Negative for environmental allergies and polydipsia. Does not bruise/bleed easily. Psychiatric/Behavioral: Negative for depression, hallucinations, memory loss, substance abuse and suicidal ideas. The patient is not nervous/anxious and does not have insomnia. Physical Examination: Vitals:There were no vitals taken for this visit. Last 2 Encounter Wt Readings: Date: Wt: 10/14/2022 88.9 kg (196 lb) 09/11/2022 88.9 kg (196 lb) Physical Exam Constitutional: General: She is not in acute distress. Appearance: She is not diaphoretic. HENT: Head: Normocephalic and atraumatic. Right Ear: External ear normal. Left Ear: External ear normal. Nose: Nose normal. Mouth/Throat: Pharynx: Oropharynx is clear. Eyes: General: Right eye: No discharge. Left eye: No discharge. Conjunctiva/sclera: Conjunctivae normal. Pupils: Pupils are equal, round, and reactive to light. Cardiovascular: Rate and Rhythm: Normal rate and regular rhythm. Heart sounds: Normal heart sounds, S1 normal and S2 normal. No murmur heard. No friction rub. No gallop. No S3 or S4 sounds. Pulmonary: Effort: Pulmonary effort is normal. No respiratory distress. Breath sounds: Normal breath sounds. No wheezing or rales. Chest: Chest wall: No tenderness. Musculoskeletal: General: Normal range of motion. Cervical back: Normal range of motion and neck supple. Skin: General: Skin is warm and dry. Neurological: Mental Status: She is alert and oriented to person, place, and time. Psychiatric: Mood and Affect: Mood normal. Thought Content: Thought content normal. Pertinent Labs: CBC: Hemoglobin (g/dL) Date Value 02/27/2023 13.5 12/22/2020 13.4 Hematocrit (%) Date Value 02/27/2023 42.8 12/22/2020 43.4 WBC (k/uL) Date Value 02/27/2023 7.11 12/22/2020 7.77 Platelet Count (k/uL) Date Value 02/27/2023 319 12/22/2020 368 BMP: Glucose (mg/dL) Date Value 02/27/2023 140 01/31/2021 96 Potassium (mmol/L) Date Value 02/27/2023 4.4 01/31/2021 4.3 Sodium (mmol/L) Date Value 02/27/2023 140 01/31/2021 139 Chloride (mmol/L) Date Value 02/27/2023 101 01/31/2021 101 CO2 (mmol/L) Date Value 02/27/2023 27 01/31/2021 23 Creatinine (mg/dL) Date Value 02/27/2023 0.79 01/31/2021 0.78 BUN (mg/dL) Date Value 02/27/2023 16 01/31/2021 19 Anion Gap (mmol/L) Date Value 02/27/2023 12 01/31/2021 15 Calcium (mg/dL) Date Value 01/31/2021 10.0 Calcium, Total (mg/dL) Date Value 02/27/2023 9.7 INR: Lipid Profile: Cholesterol, Total Date Value Ref Range Status 07/21/2022 220 (H) <200 mg/dL Final Comment: <200 mg/dL, Desirable 200-239 mg/dL, Borderline high >239 mg/dL, High HDL Cholesterol Date Value Ref Range Status 07/21/2022 46 >39 mg/dL Final Comment: 40-59 mg/dL, Acceptable >59 mg/dL, High: Negative risk factor for coronary heart disease <40 mg/dL, Low: Positive risk factor for coronary heart disease LDL Cholesterol Date Value Ref Range Status 07/21/2022 137 (H) <100 mg/dL Final Comment: <100 mg/dL, Optimal 100-129 mg/dL, Near optimal/above optimal 130-159 mg/dL, Borderline high 160-189 mg/dL, High >189 mg/dL, Very high Secondary prevention optimal LDL Cholesterol levels are recommended to be < 70 mg/dL Triglyceride Date Value Ref Range Status 07/21/2022 184 (H) <150 mg/dL Final Comment: <150 mg/dL, Normal 150-199 mg/dL, Borderline high 200-499 mg/dL, High >499 mg/dL, Very high Hemoglobin A1C: No results found for: HGBA1C TSH: No results found for: TSHREFL Prior Cardiac Testing Echo Coronary angiography Assessment and Plan: 77 years old with chronic combined systolic and diastolic congestive heart failure with severe LV ASSESSMENT/PLAN: 1. Primary hypertension - ICD9: 401.9, ICD10: I10 - Controlled - Continue current medications - Recommend home blood pressure monitoring, to bring results to next visit - Encouraged sodium restriction, DASH or Mediterranean diet - Recommend regular aerobic exercise - METOPROLOL SUCCINATE ER 25 MG TABLET,EXTENDED RELEASE 24 HR - ECG COMPLETE 2. Chronic diastolic congestive heart failure (HCC) - ICD9: 428.32, 428.0, ICD10: I50.32 - HFrEF <=40 - Continue current medications Referral to electrophysiology service to consider biventricular ICD pacer insertion Consider device Santo Oneill MD Follow up plannin months Electronically signed by Santo Oneill MD on April 09, 2023, 5:19 PM The above note was partially created using a dictation recognition software. A reasonable attempt has been made to correct any errors. documented in this encounterK[facility]-19-2023 Miscellaneous Notes* Telephone Encounter - Sanjeev Carpio RN - 03/01/2023 10:38 AM EDT Patient returned call and given provider's message below. Patient wrote results and plan down. States she will read about the cytomel and call back to let pcp know her decision. * Telephone Encounter - Griselda Staton - 03/01/2023 10:29 AM EDT Left message for patient to return call. Griselda Staton MA * Telephone Encounter - Mandeep Houser DO - 03/01/2023 9:25 AM EDT Please inform patient that her TSH is slightly high, free t4 is normal and free t3 is slightly low.Can consider adding on Cytomel which is additional thyroid hormone T3 only, which would improve theT3 and TSH levels without affecting the T4 (which is treated with her levothyroxine). Otherwise can continue to observe with repeat labs in a few months Mandeep Houser DO documented in this encounterKettering [facility]08-30-2023 History of Present illness Narrative* Mandeep Houser DO - 01/10/2023 8:13 AM EDT CC: Sandra Schmitz is a 77 year old female who presents to the office for follow up and OMT. HPI: Right neck and rib and upper back pain as well as Right mid back and rib pain >left side, no known recent injuries. Off and on symptoms x years, no rash or fevers or chills. Has tried icy hot and heating pad and ice with some relief. Has gotten benefit from OMT in the past Anterior neck muscle discomfort and fullness feeling. She thinks that this started after her increase of her thyroid dose to 100 mcg a day, up from 88 mcg a day. Asking if can decrease levothyroxine dose back down to 88 mcg and see if this helps these symptoms go away. 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 No fevers or chills. Present the last few weeksoff and on PAST MEDICAL HISTORY Diagnosis Date Acute acalculous cholecystitis 05/30/2020 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 09/22/2020 Acute on chronic systolic CHF (congestive heart failure) ([facility]) 05/03/2020 Aspiration pneumonia ([facility]) 05/30/2020 Chest pain 05/03/2020 Chest pressure 01/23/2013 Chronic diastolic congestive heart failure ([facility]) 02/14/2021 Clostridium difficile diarrhea 09/28/2020 Complete uterovaginal prolapse Cystocele, midline Essential hypertension 06/14/2020 Homozygous Factor V Leiden mutation ([facility]) 05/03/2020 Hypothyroidism IBS (irritable bowel syndrome) 01/23/2013 Palpitation CHRONIC Post-operative state 05/24/2020 Rectocele 05/25/2020 Shortness of breath 05/03/2020 Status post laparoscopic hysterectomy 05/30/2020 Tubular adenoma of colon 12/09/2020 Uterine prolapse 05/03/2020 PAST SURGICAL HISTORY Procedure Laterality Date COLONOSCOPY 01/07/2015 COLONOSCOPY 12/05/2021 repeat in 5 years COLONOSCOPY GEN ANES 12/06/2009 X3 LAST ONE IN 2009 EGD 11/08/2012 EGD 12/05/2021 PAST SURGICAL HISTORY OF 05/14/1999 left foot bunionectomy w/screws PAST SURGICAL HISTORY OF 05/14/1981 ectopic w/tube removal PAST SURGICAL HISTORY OF 2009 CYST REMOVED FROM UTERUS PAST SURGICAL HISTORY OF 05/24/2020 TVH, partial colpectomy, anterior colporrhaphy, Dennis transobturator midurethral sling, cystourethroscopy, rectocele repair with perineorrhaphy, laparoscopic lysis of adhesions and excision of bilateral adnexal structures PAST SURGICAL HISTORY OF 09/07/2020 Laparoscopic cholecystectomy with intraoperative cholangiograms. Dr. Ragsdale Current Outpatient Medications Medication Sig metoprolol succinate ER (TOPROL XL) 25 mg 24 hr tablet Take 1 tablet by mouth once daily. levothyroxine (LEVOXYL) 88 mcg tablet Take 1 tablet by mouth once daily. Take on empty stomach. ForThyroid meloxicam (MOBIC) 15 mg tablet Take 1 tablet by mouth once daily. As needed for joint pain, Take with food. losartan (COZAAR) 50 mg tablet Take 1 tablet by mouth once daily. furosemide (LASIX) 20 mg tablet Take 1 tablet by mouth once daily as needed. cyanocobalamin (VITAMIN B-12) 1,000 mcg tab Take 1 tablet by mouth once daily. benzonatate (TESSALON PERLES) 100 mg capsule Take 1 capsule by mouth three times daily as needed for cough. promethazine (PHENERGAN) 6.25 mg/5 mL syrup Take 5-10ml by mouth 4 times daily as needed for cough (Patient not taking: Reported on 09/11/2022) Cholecalciferol, Vitamin D3, 50 mcg (2,000 unit) cap Take 2 capsules by mouth once daily. omeprazole (PRILOSEC) 40 mg capsule Take 1 capsule by mouth once daily. (Patient not taking: Reported on 10/14/2022) OREGANO OIL ORAL Take by mouth once daily. L. acidophilus/L. rhamnosus (FLORAJEN WOMEN ORAL) Take by mouth once daily. ondansetron (ZOFRAN) 4 mg tablet Take 1 tablet by mouth once daily as needed (for nausea.). (Patient not taking: Reported on 10/14/2022) ZINC ORAL Take by mouth as needed. aspirin, enteric coated (ECOTRIN LOW STRENGTH) 81 mg EC tablet Take 1 tablet by mouth once daily. Current Facility-Administered Medications Medication Dose Route Frequency perflutren lipid microspheres 1.3 mL in NaCl (PF) 0.9% 10 mL injection (DEFINITY) INTRAVENOUS DIRECTED PRN sodium chloride 0.9 % (flush) 10 mL (BD POSIFLUSH) 10 mL INTRAVENOUS DIRECTED PRN perflutren lipid microspheres 1.3 mL in NaCl (PF) 0.9% 10 mL injection (DEFINITY) INTRAVENOUS DIRECTED PRN sodium chloride 0.9 % (flush) 10 mL (BD POSIFLUSH) 10 mL INTRAVENOUS DIRECTED PRN ALLERGIES Allergen Reactions Emilio Inhibitors Other: See Comments Short of breath, symptoms of heart failure Beta-Blockers (Beta* Other: See Comments Short of breath, symptoms of heart failure Augmentin [Amoxicil* GI Upset Codeine Mental Status Change Patient felt like she was made out of lead Lipitor [Atorvastat* Myalgia Muscle aches Sulfa (Sulfonamide * Other: See Comments Amlodipine Other: See Comments lightheaded Social History Tobacco Use Smoking status: Former Types: Cigarettes Quit date: 10/22/2002 Years since quittin.2 Smokeless tobacco: Never Vaping Use Vaping Use: Never used Substance Use Topics Alcohol use: No Drug use: No ROS: See HPI PE: There were no vitals taken for this visit. Gen: A&OX3, NAD, non-toxic appearing HEENT: PERRLA, EOMs intact b/l, nares without drainage, pharynx without erythema, exudate, lesions,or drainage. Uvula midline. Neck: No LAD, no thyromegaly, no meningismus. Mild fullness of thyroid and anterior neck without obvious mass Trapezius muscle tension and spasm present right >left [id number] Suboccipital fullness and dysfunction right >left Right 1st rib inhalation dysfunction [id number] CV: RRR, no murmur Lungs: CTA b/l, no wheezing Skin: No rashes, lesions, or wounds on exposed skin. ASSESSMENT/PLAN: 1. Hypothyroidism, unspecified type - ICD9: 244.9, ICD10: E03.9 (primary diagnosis) - Instructed patient on importance of taking on an empty stomach either first thing in the morning or at bedtime. - Decrease Synthroid dose to 0.088 mg Stable - Behavioral intervention and - Continue current medications Recheck labs in 4-6 weeks - TSH BLD - T4 FREE/FREE THYROX - T3 FREE BLD - CBC + DIFF - COMP METABOLIC PANEL - LEVOTHYROXINE 88 MCG TABLET 2. Somatic dysfunction of spine, cervical - ICD9: 739.1, ICD10: M99.01 OMT: Discussed risks, benefits, alternatives, and potential SEs of treatment. Patient wished to proceed with OMT. OMT was performed to the cervical region, thoracic region, head region and ribs including soft tissue, functional methods. Patient tolerated treatment well with good release, increase ROM, and decrease in pain, without complications. Instructed patient to drink plenty of water. Gentlestretches at home. 3. Somatic dysfunction of rib - ICD9: 739.8, ICD10: M99.08 OMT: Discussed risks, benefits, alternatives, and potential SEs of treatment. Patient wished to proceed with OMT. OMT was performed to the cervical region, thoracic region, head region and ribs including soft tissue, functional methods. Patient tolerated treatment well with good release, increase ROM, and decrease in pain, without complications. Instructed patient to drink plenty of water. Gentlestretches at home. 4. Somatic dysfunction of head region - ICD9: 739.0, ICD10: M99.00 OMT: Discussed risks, benefits, alternatives, and potential SEs of treatment. Patient wished to proceed with OMT. OMT was performed to the cervical region, thoracic region, head region and ribs including soft tissue, functional methods. Patient tolerated treatment well with good release, increase ROM, and decrease in pain, without complications. Instructed patient to drink plenty of water. Gentlestretches at home. 5. Chronic bilateral thoracic back pain - ICD9: 724.1, 338.29, ICD10: M54.6, G89.29 OMT: Discussed risks, benefits, alternatives, and potential SEs of treatment. Patient wished to proceed with OMT. OMT was performed to the cervical region, thoracic region, head region and ribs including soft tissue, functional methods. Patient tolerated treatment well with good release, increase ROM, and decrease in pain, without complications. Instructed patient to drink plenty of water. Gentlestretches at home. 6. Chronic neck pain - ICD9: 723.1, 338.29, ICD10: M54.2, G89.29 OMT: Discussed risks, benefits, alternatives, and potential SEs of treatment. Patient wished to proceed with OMT. OMT was performed to the cervical region, thoracic region, head region and ribs including soft tissue, functional methods. Patient tolerated treatment well with good release, increase ROM, and decrease in pain, without complications. Instructed patient to drink plenty of water. Gentlestretches at home. 7. Neck fullness - ICD9: 784.2, ICD10: R22.1 If symptoms don't improve with dose decrease of levothyroxine, then need for neck US Mandeep Houser DO Return if no improvement. Follow up with Mandeep Houser DO. To ER if develops chest pain, shortness of breath Discussed risks, benefits, alternatives, and potential side effects of medications. Patient/Guardian expressed understanding and agreed with the plan. See patient instructions. Mandeep Houser DO [address] [place] [address] documented in this encounterK[facility]08-29-2023 Instructions* Patient Instructions* Mandeep Houser DO - 01/09/2023 1:53 PM EDT Decrease dose of thyroid medication to 88 mcg a day, new rx sent into [facility] Recheck labs in 1 month, these are ordered. Can be done non fasting If front of neck symptoms aren't better, I will order ultrasound. Let me konw documented in this encounterKet[facility]08-29-2023 Miscellaneous Notes* Telephone Encounter - Sandra Malave - 01/09/2023 9:29 AM EDT Patient has been identified by name and date of : Yes Last office visit in this department: Visit date not found RX INSTRUCTIONS: Patient aware RX will be sent to pharmacy. No need to notify patient. Patient phones requesting refills as follows: Requested Prescriptions Pending Prescriptions Disp Refills metoprolol succinate ER (TOPROL XL) 25 mg 24 hr tablet 90 tablet 0 Sig: Take 1 tablet by mouth once daily. Please review and advise. Sandra Wells documented in this encounterKettering [facility]08-17-2023 Miscellaneous Notes* Telephone Encounter - Rupali Nascimento APRN.CNP - 12/28/2022 9:37 AM EDT Rx sent in. OMT as needed when flare up occurs. The following approved medication requests have been transmitted electronically. Requested Prescriptions Signed Prescriptions Disp Refills levothyroxine (LEVOXYL) 100 mcg tablet 90 tablet 1 Sig: Take 1 tablet by mouth once daily. Take on empty stomach. For Thyroid Authorizing Provider: RUPALI NASCIMENTO APRN.CNP * Telephone Encounter - Mane Pennington LPN - 12/26/2022 9:45 AM EDT Phoned patient and went over results, notes from Dr Houser with understanding. Patient asking for rx to be sent to [facility] please. She does not use [facility]. Reset rx to file to correct pharmacy. Patient asking when did you want her to schedule next appt for treatment on her back? * Telephone Encounter - Mandeep Houser DO - 12/26/2022 7:25 AM EDT Please advise patient that her labs were all stable except her free t3 is slightly low, would recommend increased dose of thyroid medication to 100 mcg a day (up from 88 mcg) of levothyroxine for better thyroid support. Mandeep Houser DO The following approved medication requests have been transmitted electronically. Requested Prescriptions Signed Prescriptions Disp Refills levothyroxine (LEVOXYL) 100 mcg tablet 90 tablet 1 Sig: Take 1 tablet by mouth once daily. Take on empty stomach. For Thyroid Authorizing Provider: MANDEEP HOUSER DO * Telephone Encounter - Vinita Fernandez RN - 12/22/2022 9:14 AM EDT Patient asking Dr. Houser to advise on her lab results from 12/14/22 when able. Thank you. documented in this encounterKettering [facility]08-08-2023 Miscellaneous Notes* Telephone Encounter - Alejandrina Barnes LPN - 12/19/2022 8:59 AM EDT Patient notified. Verbalized understanding. * Telephone Encounter - Mandeep Houser DO - 12/19/2022 8:08 AM EDT Please inform patient that her CXR is normal Mandeep Houser DO documented in this encounterKettering [facility]08-03-2023 History of Present illness Narrative* Faye Aguirre RT(R) - 12/14/2022 10:40 AM EDT Radiology Service Progress Note PATIENT NAME: Sandra Schmitz DATE OF SERVICE: December 14, 2022 TIME: 10:38 AM PATIENT IDENTITY VERIFICATION COMPLETED USING TWO (2) IDENTIFIERS: Name and Date of confirmedby patient verbally. FALL SCREENING: Has the patient had 2 falls in the last year or 1 fall with injury or currently using an Ambulatory Assistive Device (Walker, Cane, Wheelchair, Crutches, etc.)? No PATIENT GENDER DATA: Female. status: : No status: NO. PATIENT RELEVANT IMPLANT DATA REVIEWED: Yes RADIOLOGY DEPARTMENT: General X-ray: Exam(s) Completed: Chest X-Ray PERIPHERAL IV DATA: Not applicable SIGNED BY: RT Roberto(R) December 14, 2022 10:38 AM documented in this encounterKettering [facility]06-19-2023 Miscellaneous Notes* Telephone Encounter - Leyla Ferreira RN - 10/30/2022 10:48 AM EDT Addendum completed by Dr. Mata and faxed to [facility]. * Telephone Encounter - Sincere Berger RN - 10/24/2022 1:25 PM EDT Received fax from [facility] requesting addendum to 08/[address]. [address] Testrakes desk. documented in this encounterKettering [facility]06-04-2023 Miscellaneous Notes* Telephone Encounter - Estelita Pinon APRN.CNP - 10/15/2022 9:26 AM EDT Reached out and informed patient. States today she is feeling better. At this time she is declining antivirals. She was informed she can take antivirals up until day 5. * Telephone Encounter - Estelita Pinon APRN.CNP - 10/15/2022 8:02 AM EDT You tested positive for COVID-19. Follow the CDC guidelines for isolation: 1. Everyone, regardless of vaccination status, should stay home for 5 days. 2. If you have no symptoms or your symptoms are resolving after 5 days, you can leave your house. 3. Continue to wear a mask around others for 5 additional days. If you have a fever, continue to stay home until your fever resolves, even if it is longer than 5 days. You may be eligible for additional treatments for COVID-19. Please call our office as soon as possible to schedule a virtual visit to discuss your eligibility for antiviral or monoclonal antibody therapy. Please monitor your symptoms, and for any worrisome symptoms, call your primary care provider or schedule a visit with [facility]. A test is not recommended to return to work/school when meeting the above criteria. Estelita Pinon APRN.CNP documented in this encounterKettering [facility]06-03-2023 History of Present illness Narrative* Shanell Cox APRN.CNP - 10/14/2022 2:19 PM EDT CC: Patient presents with: Sore Throat: Cough x 3 days HPI: Sandra Schmitz is a 77 year old female who presents to the office with complaint of respiratory symptoms for a few days. Associated symptoms includes sneezing, sore throat, nasal congestion, rhinorrhea, ear pressure , and cough. Denies headache, body aches, fever, wheezing, dyspnea, nausea, vomiting , and diarrhea. Treatments tried include Acetaminophen and Vicks. Sick contacts: unknown. History of asthma, frequent episodes of bronchitis, chronic bronchitis, bronchiectasis or COPD: No Smoker: No The ROS is otherwise negative. The patient's pmh, medications, allergies, and past visits are reviewed. PHYSICAL EXAM: BP 104/78 Pulse 87 Temp 37.7 C (99.8 F) Resp 22 Wt 88.9 kg (196 lb) SpO2 94% BMI 33.64 kg/m General appearance: alert, cooperative, pleasant, in no acute distress Head: Normocephalic Eyes: conjunctiva pink and moist, no icterus, sclera white, non-injected Ears: Right ear: External ear/canal- Normal, TM - clear with good landmarks. Left ear: External ear/canal- Normal, TM - clear with good landmarks Nose: clear. Oropharynx:No erythema, exudates or tonsillar hypertrophy. Neck:supple and no adenopathy Heart: Negative. RRR without obvious murmur, gallop, or rubs. No ectopy. Lungs: clear to auscultation, without rales or wheeze, good air exchange ASSESSMENT/PLAN: 1. Acute cough - ICD9: 786.2, ICD10: R05.1 (primary diagnosis) - Meets symptom-based criteria for testing and is high risk. - COVID swab collected at time of office visit - Instructed to isolate pending test results - Discussed symptom monitoring and supportive care - Red flag symptoms requiring follow up discussed - COVID WITH FLUA+B, ROUTINE 2. Sore throat - ICD9: 462, ICD10: J02.9 - suspect viral - STREP A MOLECULAR (POC) negative - COVID WITH FLUA+B, ROUTINE Prescription instructions reviewed with patient as applicable. Potential red flag symptoms discussed with the patient. Reviewed appropriate action plan to take if red flag symptoms occur. Patient agreeable to treatment plan. Shanell Cox APRN.CNP documented in this encounterKettering [facility]05-31-2023 History of Present illness Narrative* Mandeep Houser DO - 10/11/2022 10:31 PM EDT CC: Sandra Schmitz is a 77 year old female who presents to the office for OMT HPI: Here for OMT today Right neck and rib and upper back pain as well as Right mid back and rib pain >left side, no known recent injuries. Off and on symptoms x years, no rash or fevers or chills. Has tried icy hot and heating pad and ice with some relief. Has gotten benefit from OMT in the past PAST MEDICAL HISTORY Diagnosis Date Acute acalculous cholecystitis 05/30/2020 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 09/22/2020 Acute on chronic systolic CHF (congestive heart failure) ([facility]) 05/03/2020 Aspiration pneumonia ([facility]) 05/30/2020 Chest pain 05/03/2020 Chest pressure 01/23/2013 Chronic diastolic congestive heart failure ([facility]) 02/14/2021 Clostridium difficile diarrhea 09/28/2020 Complete uterovaginal prolapse Cystocele, midline Essential hypertension 06/14/2020 Homozygous Factor V Leiden mutation ([facility]) 05/03/2020 Hypothyroidism IBS (irritable bowel syndrome) 01/23/2013 Palpitation CHRONIC Post-operative state 05/24/2020 Rectocele 05/25/2020 Shortness of breath 05/03/2020 Status post laparoscopic hysterectomy 05/30/2020 Tubular adenoma of colon 12/09/2020 Uterine prolapse 05/03/2020 PAST SURGICAL HISTORY Procedure Laterality Date COLONOSCOPY 01/07/2015 COLONOSCOPY 12/05/2021 repeat in 5 years COLONOSCOPY GEN ANES 12/06/2009 X3 LAST ONE IN 2009 EGD 11/08/2012 EGD 12/05/2021 PAST SURGICAL HISTORY OF 05/14/1999 left foot bunionectomy w/screws PAST SURGICAL HISTORY OF 05/14/1981 ectopic w/tube removal PAST SURGICAL HISTORY OF 2009 CYST REMOVED FROM UTERUS PAST SURGICAL HISTORY OF 05/24/2020 TVH, partial colpectomy, anterior colporrhaphy, Dennis transobturator midurethral sling, cystourethroscopy, rectocele repair with perineorrhaphy, laparoscopic lysis of adhesions and excision of bilateral adnexal structures PAST SURGICAL HISTORY OF 09/07/2020 Laparoscopic cholecystectomy with intraoperative cholangiograms. Dr. Ragsdale Current Outpatient Medications Medication Sig metoprolol succinate ER (TOPROL XL) 25 mg 24 hr tablet Take 1 tablet by mouth once daily. losartan (COZAAR) 50 mg tablet Take 1 tablet by mouth once daily. furosemide (LASIX) 20 mg tablet Take 1 tablet by mouth once daily as needed. levothyroxine (LEVOXYL) 88 mcg tablet Take 1 tablet by mouth once daily. Take on empty stomach. ForThyroid cyanocobalamin (VITAMIN B-12) 1,000 mcg tab Take 1 tablet by mouth once daily. benzonatate (TESSALON PERLES) 100 mg capsule Take 1 capsule by mouth three times daily as needed for cough. promethazine (PHENERGAN) 6.25 mg/5 mL syrup Take 5-10ml by mouth 4 times daily as needed for cough (Patient not taking: Reported on 09/11/2022) Cholecalciferol, Vitamin D3, 50 mcg (2,000 unit) cap Take 2 capsules by mouth once daily. omeprazole (PRILOSEC) 40 mg capsule Take 1 capsule by mouth once daily. (Patient taking differently: Take 40 mg by mouth once daily. PRN) OREGANO OIL ORAL Take by mouth once daily. L. acidophilus/L. rhamnosus (FLORAJEN WOMEN ORAL) Take by mouth once daily. ondansetron (ZOFRAN) 4 mg tablet Take 1 tablet by mouth once daily as needed (for nausea.). ZINC ORAL Take by mouth as needed. aspirin, enteric coated (ECOTRIN LOW STRENGTH) 81 mg EC tablet Take 1 tablet by mouth once daily. Current Facility-Administered Medications Medication Dose Route Frequency perflutren lipid microspheres 1.3 mL in NaCl (PF) 0.9% 10 mL injection (DEFINITY) INTRAVENOUS DIRECTED PRN sodium chloride 0.9 % (flush) 10 mL (BD POSIFLUSH) 10 mL INTRAVENOUS DIRECTED PRN perflutren lipid microspheres 1.3 mL in NaCl (PF) 0.9% 10 mL injection (DEFINITY) INTRAVENOUS DIRECTED PRN sodium chloride 0.9 % (flush) 10 mL (BD POSIFLUSH) 10 mL INTRAVENOUS DIRECTED PRN ALLERGIES Allergen Reactions Emilio Inhibitors Other: See Comments Short of breath, symptoms of heart failure Beta-Blockers (Beta* Other: See Comments Short of breath, symptoms of heart failure Augmentin [Amoxicil* GI Upset Codeine Mental Status Change Patient felt like she was made out of lead Lipitor [Atorvastat* Myalgia Muscle aches Sulfa (Sulfonamide * Other: See Comments Amlodipine Other: See Comments lightheaded Social History Tobacco Use Smoking status: Former Types: Cigarettes Quit date: 10/22/2002 Years since quittin.9 Smokeless tobacco: Never Vaping Use Vaping Use: Never used Substance Use Topics Alcohol use: No Drug use: No ROS: See HPI PE: There were no vitals taken for this visit. Gen: A&OX3, NAD, non-toxic appearing HEENT: PERRLA, EOMs intact b/l, nares without drainage, pharynx without erythema, exudate, lesions,or drainage. Uvula midline. Neck: No LAD, no thyromegaly, no meningismus. Trapezius muscle tension and spasm present right >left C2-6ERrSBl Suboccipital fullness and dysfunction right >left Right 1st rib inhalation dysfunction [id number] ASSESSMENT/PLAN: 1. Chronic bilateral thoracic back pain - ICD9: 724.1, 338.29, ICD10: M54.6, OMT: Discussed risks, benefits, alternatives, and potential SEs of treatment. Patient wished to proceed with OMT. OMT was performed to the cervical region, thoracic region, head region and ribs including soft tissue, functional methods.. Patient tolerated treatment well with good release, increase ROM, and decrease in pain, without complications. Instructed patient to drink plenty of water. Gentle stretches at home. 2. Somatic dysfunction of spine, cervical - ICD9: 739.1, ICD10: M99.01 OMT: Discussed risks, benefits, alternatives, and potential SEs of treatment. Patient wished to proceed with OMT. OMT was performed to the cervical region, thoracic region, head region and ribs including soft tissue, functional methods.. Patient tolerated treatment well with good release, increase ROM, and decrease in pain, without complications. Instructed patient to drink plenty of water. Gentle stretches at home. 3. Somatic dysfunction of rib - ICD9: 739.8, ICD10: M99.08 OMT: Discussed risks, benefits, alternatives, and potential SEs of treatment. Patient wished to proceed with OMT. OMT was performed to the cervical region, thoracic region, head region and ribs including soft tissue, functional methods.. Patient tolerated treatment well with good release, increase ROM, and decrease in pain, without complications. Instructed patient to drink plenty of water. Gentle stretches at home. 4. Somatic dysfunction of head region - ICD9: 739.0, ICD10: M99.00 OMT: Discussed risks, benefits, alternatives, and potential SEs of treatment. Patient wished to proceed with OMT. OMT was performed to the cervical region, thoracic region, head region and ribs including soft tissue, functional methods.. Patient tolerated treatment well with good release, increase ROM, and decrease in pain, without complications. Instructed patient to drink plenty of water. Gentle stretches at home. 5. Chronic neck pain - ICD9: 723.1, 338.29, ICD10: M54.2, G89.29 OMT: Discussed risks, benefits, alternatives, and potential SEs of treatment. Patient wished to proceed with OMT. OMT was performed to the cervical region, thoracic region, head region and ribs including soft tissue, functional methods.. Patient tolerated treatment well with good release, increase ROM, and decrease in pain, without complications. Instructed patient to drink plenty of water. Gentle stretches at home. 6. Somatic dysfunction of spine, thoracic - ICD9: 739.2, ICD10: M99.02 OMT: Discussed risks, benefits, alternatives, and potential SEs of treatment. Patient wished to proceed with OMT. OMT was performed to the cervical region, thoracic region, head region and ribs including soft tissue, functional methods.. Patient tolerated treatment well with good release, increase ROM, and decrease in pain, without complications. Instructed patient to drink plenty of water. Gentle stretches at home. Mandeep Houser DO Return if no improvement. Follow up with Mandeep Houser DO. To ER if develops chest pain, shortness of breath Discussed risks, benefits, alternatives, and potential side effects of medications. Patient/Guardian expressed understanding and agreed with the plan. See patient instructions. Mandeep Houser DO [address] [place] [address] documented in this encounterK[facility]23 Miscellaneous Notes* Telephone Encounter - Leyla Ferreira RN - 09/21/2022 2:51 PM EDT Refaxed forms to [employer]. * Telephone Encounter - Rachelle Stout LPN - 09/21/2022 1:38 PM EDT Shana varner called stating that fax sent only came thru as every other page and the whole fax was not received. Please refax paper work to [phone] Rachelle Stout LPN documented in this encounterK[facility]05-01-2023 Miscellaneous Notes* Telephone Encounter - Sincere Berger RN - 09/11/2022 11:44 AM EDT Received fax from [facility] for Orthosis order. Forms filled out and signed by Dr. Mata andfaxed back to [place] with office notes. Fax number: [phone] documented in this encounterK[facility]04-24-2023 History of Present illness Narrative* Dorinda Davidson, RT(R) - 09/04/2022 2:00 PM EDT Radiology Service Progress Note DATE OF SERVICE: September 04, 2022 TIME: 2:30 PM PATIENT IDENTITY VERIFICATION COMPLETED USING TWO (2) STANDARD IDENTIFIERS: Name and Date of confirmed by patient verbally. FALL SCREENING: Has the patient had 2 falls in the last year or 1 fall with injury or currently using an Ambulatory Assistive Device (Walker, Cane, Wheelchair, Crutches, etc.)? No PATIENT GENDER DATA: Female. status: : No status: NO. PATIENT RELEVANT IMPLANT DATA REVIEWED: Yes ALLERGIES: Reviewed and unchanged CONTRAST ALLERGY: NO. EXAM: CT -CONTRAST INDUCED NEPHROPATHY RISK FACTORS: Patient age > 60 years CREATININE: Creatinine Date Value Ref Range Status 07/21/2022 0.75 0.58 - 0.96 mg/dL Final 05/22/2022 0.90 0.58 - 0.96 mg/dL Final 01/12/2022 0.72 0.58 - 0.96 mg/dL Final Estimated Glomerular Filtration Rate Date Value Ref Range Status 07/21/2022 83 >=60 mL/min/1.73m Final Comment: Estimated Glomerular Filtration Rate (eGFR) is calculated using the 2020 CKD-EPI creatinine equation. This equation utilizes serum creatinine, sex, and age as parameters. The creatinine assay has traceable calibration to isotope dilution- mass spectrometry. Refer to KDIGO guidelines for clinical interpretation. In patients with unstable renal function, e.g. those with acute kidney injury, the eGFRmay not accurately reflect actual GFR. eGFR- Date Value Ref Range Status 01/31/2021 >60 Final P.O.C.T. RESULTS: POC done: Yes, See Lab Tab September 04, 2022 TREATMENT: N/A PERIPHERAL IV DATA: Ambulatory: A peripheral IV was started in the Left antecubital site with a Angio cath: 22 gauge. RADIOLOGY DEPARTMENT: CT; Exam(s) Completed: Abdomen/Pelvis SIGNATURE: RT Mauricio(R) PATIENT NAME: Sandra Schmitz DATE: September 04, 2022 TIME: 2:30 PM documented in this encounterK[facility]04-13-2023 History of Present illness Narrative* Mandeep Houser, - 08/24/2022 11:41 AM EDT CC: Sandra Schmitz is a 77 year old female who presents to the office for OMT HPI: Here for OMT today Right neck and rib and upper back pain as well as Right mid back and rib pain >left side, no known recent injuries. Off and on symptoms x years, no rash or fevers or chills. Has tried icy hot and heating pad and ice with some relief. 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 Feels like she could at times. No blood in stool. Symptoms worsening over weeks time PAST MEDICAL HISTORY Diagnosis Date Acute acalculous cholecystitis 05/30/2020 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 09/22/2020 Acute on chronic systolic CHF (congestive heart failure) ([facility]) 05/03/2020 Aspiration pneumonia ([facility]) 05/30/2020 Chest pain 05/03/2020 Chest pressure 01/23/2013 Chronic diastolic congestive heart failure ([facility]) 02/14/2021 Clostridium difficile diarrhea 09/28/2020 Complete uterovaginal prolapse Cystocele, midline Essential hypertension 06/14/2020 Homozygous Factor V Leiden mutation ([facility]) 05/03/2020 Hypothyroidism IBS (irritable bowel syndrome) 01/23/2013 Palpitation CHRONIC Post-operative state 05/24/2020 Rectocele 05/25/2020 Shortness of breath 05/03/2020 Status post laparoscopic hysterectomy 05/30/2020 Tubular adenoma of colon 12/09/2020 Uterine prolapse 05/03/2020 PAST SURGICAL HISTORY Procedure Laterality Date COLONOSCOPY 01/07/2015 COLONOSCOPY 12/05/2021 repeat in 5 years COLONOSCOPY GEN ANES 12/06/2009 X3 LAST ONE IN 2009 EGD 11/08/2012 EGD 12/05/2021 PAST SURGICAL HISTORY OF 05/14/1999 left foot bunionectomy w/screws PAST SURGICAL HISTORY OF 05/14/1981 ectopic w/tube removal PAST SURGICAL HISTORY OF 2009 CYST REMOVED FROM UTERUS PAST SURGICAL HISTORY OF 05/24/2020 TVH, partial colpectomy, anterior colporrhaphy, Dennis transobturator midurethral sling, cystourethroscopy, rectocele repair with perineorrhaphy, laparoscopic lysis of adhesions and excision of bilateral adnexal structures PAST SURGICAL HISTORY OF 09/07/2020 Laparoscopic cholecystectomy with intraoperative cholangiograms. Dr. Ragsdale Current Outpatient Medications Medication Sig levothyroxine (LEVOXYL) 88 mcg tablet Take 1 tablet by mouth once daily. Take on empty stomach. ForThyroid cyanocobalamin (VITAMIN B-12) 1,000 mcg tab Take 1 tablet by mouth once daily. metoprolol succinate ER (TOPROL XL) 25 mg 24 hr tablet Take 1 tablet by mouth once daily. benzonatate (TESSALON PERLES) 100 mg capsule Take 1 capsule by mouth three times daily as needed for cough. promethazine (PHENERGAN) 6.25 mg/5 mL syrup Take 5-10ml by mouth 4 times daily as needed for cough Cholecalciferol, Vitamin D3, 50 mcg (2,000 unit) cap Take 2 capsules by mouth once daily. omeprazole (PRILOSEC) 40 mg capsule Take 1 capsule by mouth once daily. losartan (COZAAR) 50 mg tablet Take 1 tablet by mouth once daily. OREGANO OIL ORAL Take by mouth once daily. L. acidophilus/L. rhamnosus (FLORAJEN WOMEN ORAL) Take by mouth once daily. ondansetron (ZOFRAN) 4 mg tablet Take 1 tablet by mouth once daily as needed (for nausea.). ZINC ORAL Take by mouth as needed. furosemide (LASIX) 20 mg tablet Take 1 tablet by mouth once daily as needed. (Patient taking differently: Take 20 mg by mouth as needed.) aspirin, enteric coated (ECOTRIN LOW STRENGTH) 81 mg EC tablet Take 1 tablet by mouth once daily. Current Facility-Administered Medications Medication Dose Route Frequency perflutren lipid microspheres 1.3 mL in NaCl (PF) 0.9% 10 mL injection (DEFINITY) INTRAVENOUS DIRECTED PRN sodium chloride 0.9 % (flush) 10 mL (BD POSIFLUSH) 10 mL INTRAVENOUS DIRECTED PRN ALLERGIES Allergen Reactions Emilio Inhibitors Other: See Comments Short of breath, symptoms of heart failure Beta-Blockers (Beta* Other: See Comments Short of breath, symptoms of heart failure Augmentin [Amoxicil* GI Upset Codeine Mental Status Change Patient felt like she was made out of lead Lipitor [Atorvastat* Myalgia Muscle aches Sulfa (Sulfonamide * Other: See Comments Amlodipine Other: See Comments lightheaded Social History Tobacco Use Smoking status: Former Types: Cigarettes Quit date: 10/22/2002 Years since quittin.8 Smokeless tobacco: Never Vaping Use Vaping Use: Never used Substance Use Topics Alcohol use: No Drug use: No ROS: See HPI PE: There were no vitals taken for this visit. Gen: A&OX3, NAD, non-toxic appearing HEENT: PERRLA, EOMs intact b/l, nares without drainage, pharynx without erythema, exudate, lesions,or drainage. Uvula midline. Neck: No LAD, no thyromegaly, no meningismus. Trapezius muscle tension and spasm present right >left C2-6ERrSBl Suboccipital fullness and dysfunction right >left Right 1st rib inhalation dysfunction Abd: + TTP RUQ and epigastric area, no obvious masses, + abdominal distension mild, slightly hypoactive normal pitch bowel sounds. ASSESSMENT/PLAN: 1. Chronic neck pain - ICD9: 723.1, 338.29, ICD10: M54.2, G89.29 (primary diagnosis) OMT: Discussed risks, benefits, alternatives, and potential SEs of treatment. Patient wished to proceed with OMT. OMT was performed to the cervical region, head region, and ribs including soft tissue, functional methods, Patient tolerated treatment well with good release, increase ROM, and decreasein pain, without complications. Instructed patient to drink plenty of water. Gentle stretches at home. 2. Abdominal distension (gaseous) - ICD9: 787.3, ICD10: R14.0 Need for further testing with CT abd/pelvis. Concerns due to risk of hernia vs. Scar tissue from previous surgery vs. Other cause. - IV CONTRAST (RADIOLOGY PROCEDURE) - ENTERIC CONTRAST (RADIOLOGY PROCEDURE) - CT ABD/PEL W IVCON 3. Nausea - ICD9: 787.02, ICD10: R11.0 See above - IV CONTRAST (RADIOLOGY PROCEDURE) - ENTERIC CONTRAST (RADIOLOGY PROCEDURE) - CT ABD/PEL W IVCON 4. RUQ abdominal pain - ICD9: 789.01, ICD10: R10.11 Need for further testing with CT abd/pelvis. Concerns due to risk of hernia vs. Scar tissue from previous surgery vs. Other cause. - IV CONTRAST (RADIOLOGY PROCEDURE) - ENTERIC CONTRAST (RADIOLOGY PROCEDURE) - CT ABD/PEL W IVCON 5. Somatic dysfunction of spine, cervical - ICD9: 739.1, ICD10: M99.01 OMT: Discussed risks, benefits, alternatives, and potential SEs of treatment. Patient wished to proceed with OMT. OMT was performed to the cervical region, head region, and ribs including soft tissue, functional methods, Patient tolerated treatment well with good release, increase ROM, and decreasein pain, without complications. Instructed patient to drink plenty of water. Gentle stretches at home. 6. Somatic dysfunction of rib - ICD9: 739.8, ICD10: M99.08 OMT: Discussed risks, benefits, alternatives, and potential SEs of treatment. Patient wished to proceed with OMT. OMT was performed to the cervical region, head region, and ribs including soft tissue, functional methods, Patient tolerated treatment well with good release, increase ROM, and decreasein pain, without complications. Instructed patient to drink plenty of water. Gentle stretches at home. 7. Somatic dysfunction of head region - ICD9: 739.0, ICD10: M99.00 OMT: Discussed risks, benefits, alternatives, and potential SEs of treatment. Patient wished to proceed with OMT. OMT was performed to the cervical region, head region, and ribs including soft tissue, functional methods, Patient tolerated treatment well with good release, increase ROM, and decreasein pain, without complications. Instructed patient to drink plenty of water. Gentle stretches at home. Mandeep Houser DO Return if no improvement. Follow up with Mandeep Houser DO. To ER if develops chest pain, shortness of breath Discussed risks, benefits, alternatives, and potential side effects of medications. Patient/Guardian expressed understanding and agreed with the plan. See patient instructions. Mandeep Houser DO [address] [place] [address] documented in this encounterK[facility]04-03-2023 History of Present illness Narrative* Santo Oneill MD - 08/14/2022 11:58 AM EDT Images from the original note were not included. Santo Oneill MD Interventional Cardiology [facility] [address], [place] [address] [phone] Chief Complaint Patient presents with: Established Patient Follow-Up HISTORY OF PRESENT ILLNESS: Ms. Schmitz is a 77 year old female seen in my office for assessment and management with history of mild nonobstructive coronary artery disease and cardiomyopathy Patient is doing reasonably well but she had recurrent episodes of sudden onset shortness of breathassociated with palpitations suggestive of cardiac arrhythmia EKG today shows left ventricular hypertrophy Clinically no signs or symptoms of congestive heart failure Cardiac Risk Factors age (male over 45, female over 55), hyperlipidemia, hypertension, family history of CAD PAST MEDICAL HISTORY Diagnosis Date Acute acalculous cholecystitis 05/30/2020 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 09/22/2020 Acute on chronic systolic CHF (congestive heart failure) ([facility]) 05/03/2020 Aspiration pneumonia ([facility]) 05/30/2020 Chest pain 05/03/2020 Chest pressure 01/23/2013 Chronic diastolic congestive heart failure ([facility]) 02/14/2021 Clostridium difficile diarrhea 09/28/2020 Complete uterovaginal prolapse Cystocele, midline Essential hypertension 06/14/2020 Homozygous Factor V Leiden mutation ([facility]) 05/03/2020 Hypothyroidism IBS (irritable bowel syndrome) 01/23/2013 Palpitation CHRONIC Post-operative state 05/24/2020 Rectocele 05/25/2020 Shortness of breath 05/03/2020 Status post laparoscopic hysterectomy 05/30/2020 Tubular adenoma of colon 12/09/2020 Uterine prolapse 05/03/2020 PAST SURGICAL HISTORY Procedure Laterality Date COLONOSCOPY 01/07/2015 COLONOSCOPY 12/05/2021 repeat in 5 years COLONOSCOPY GEN ANES 12/06/2009 X3 LAST ONE IN 2009 EGD 11/08/2012 EGD 12/05/2021 PAST SURGICAL HISTORY OF 05/14/1999 left foot bunionectomy w/screws PAST SURGICAL HISTORY OF 05/14/1981 ectopic w/tube removal PAST SURGICAL HISTORY OF 2009 CYST REMOVED FROM UTERUS PAST SURGICAL HISTORY OF 05/24/2020 TVH, partial colpectomy, anterior colporrhaphy, Dennis transobturator midurethral sling, cystourethroscopy, rectocele repair with perineorrhaphy, laparoscopic lysis of adhesions and excision of bilateral adnexal structures PAST SURGICAL HISTORY OF 09/07/2020 Laparoscopic cholecystectomy with intraoperative cholangiograms. Dr. Ragsdale FAMILY HISTORY Problem Relation Age of Onset Blood Disease Mother Coronary Artery Disease Mother Cancer Mother lung Blood Disease Father Coronary Artery Disease Father Heart Father pacemaker Diabetes Father Breast Cancer Sister younger sis. COPD Brother Hypertension Brother Heart disease Brother Coronary Artery Disease Maternal Grandmother Ischemic Heart Disease Maternal Grandfather Coronary Artery Disease Maternal Grandfather Coronary Artery Disease Daughter Social History Tobacco Use Smoking status: Former Types: Cigarettes Quit date: 10/22/2002 Years since quittin.8 Smokeless tobacco: Never Vaping Use Vaping Use: Never used Substance Use Topics Alcohol use: No Drug use: No ALLERGIES Allergen Reactions Emilio Inhibitors Other: See Comments Short of breath, symptoms of heart failure Beta-Blockers (Beta* Other: See Comments Short of breath, symptoms of heart failure Augmentin [Amoxicil* GI Upset Codeine Mental Status Change Patient felt like she was made out of lead Lipitor [Atorvastat* Myalgia Muscle aches Sulfa (Sulfonamide * Other: See Comments Amlodipine Other: See Comments lightheaded Medications: Current Outpatient Medications Medication Sig Dispense Refill levothyroxine (LEVOXYL) 88 mcg tablet Take 1 tablet by mouth once daily. Take on empty stomach. ForThyroid 90 tablet 1 cyanocobalamin (VITAMIN B-12) 1,000 mcg tab Take 1 tablet by mouth once daily. 30 tablet 2 metoprolol succinate ER (TOPROL XL) 25 mg 24 hr tablet Take 1 tablet by mouth once daily. 90 tablet0 benzonatate (TESSALON PERLES) 100 mg capsule Take 1 capsule by mouth three times daily as needed for cough. 21 capsule 0 promethazine (PHENERGAN) 6.25 mg/5 mL syrup Take 5-10ml by mouth 4 times daily as needed for cough 200 mL 0 Cholecalciferol, Vitamin D3, 50 mcg (2,000 unit) cap Take 2 capsules by mouth once daily. omeprazole (PRILOSEC) 40 mg capsule Take 1 capsule by mouth once daily. 30 capsule 2 losartan (COZAAR) 50 mg tablet Take 1 tablet by mouth once daily. 90 tablet 3 OREGANO OIL ORAL Take by mouth once daily. L. acidophilus/L. rhamnosus (FLORAJEN WOMEN ORAL) Take by mouth once daily. ondansetron (ZOFRAN) 4 mg tablet Take 1 tablet by mouth once daily as needed (for nausea.). 30 tablet 0 ZINC ORAL Take by mouth as needed. furosemide (LASIX) 20 mg tablet Take 1 tablet by mouth once daily as needed. (Patient taking differently: Take 20 mg by mouth as needed.) 90 tablet 3 aspirin, enteric coated (ECOTRIN LOW STRENGTH) 81 mg EC tablet Take 1 tablet by mouth once daily. 0 Current Facility-Administered Medications Medication Dose Route Frequency Provider Last Rate Last Admin perflutren lipid microspheres 1.3 mL in NaCl (PF) 0.9% 10 mL injection (DEFINITY) INTRAVENOUS DIRECTED QUINTIN Oneill MD sodium chloride 0.9 % (flush) 10 mL (BD POSIFLUSH) 10 mL INTRAVENOUS DIRECTED PRRory Oneill MD perflutren lipid microspheres 1.3 mL in NaCl (PF) 0.9% 10 mL injection (DEFINITY) INTRAVENOUS DIRECTED QUINTIN Oneill MD sodium chloride 0.9 % (flush) 10 mL (BD POSIFLUSH) 10 mL INTRAVENOUS DIRECTED QUINTIN Oneill MD Review of Systems Constitutional: Negative for chills, diaphoresis, fever, malaise/fatigue and weight loss. HENT: Negative for congestion, ear discharge, ear pain, hearing loss, nosebleeds, sinus pain, sore throat and tinnitus. Eyes: Negative for blurred vision, double vision, photophobia, pain, discharge and redness. Respiratory: Positive for shortness of breath. Negative for cough, hemoptysis, sputum production, wheezing and stridor. Cardiovascular: Positive for palpitations. Negative for chest pain, orthopnea, claudication, leg swelling and PND. Gastrointestinal: Negative for abdominal pain, blood in stool, constipation, diarrhea, heartburn, melena, nausea and vomiting. Genitourinary: Negative for dysuria, flank pain, frequency, hematuria and urgency. Musculoskeletal: Negative for back pain, falls, joint pain, myalgias and neck pain. Skin: Negative for itching and rash. Neurological: Negative for dizziness, tingling, tremors, sensory change, speech change, focal weakness, seizures, loss of consciousness, weakness and headaches. Endo/Heme/Allergies: Negative for environmental allergies and polydipsia. Does not bruise/bleed easily. Psychiatric/Behavioral: Negative for depression, hallucinations, memory loss, substance abuse and suicidal ideas. The patient is not nervous/anxious and does not have insomnia. Physical Examination: Vitals:BP 110/70 Pulse 87 Wt 192 lb (87.1kg) SpO2 94% BP w/Orthostatic Vitals Date and Time Orthostatic BP Orthostatic Pulse BP Pulse BP Position BP Site BP Cuff Size 08/14/22 1120 -- -- 110/70 87 Sitting Right Arm Large Adult Last 2 Encounter Wt Readings: Date: Wt: 08/14/2022 87.1 kg (192 lb) 07/21/2022 89.5 kg (197 lb 6.4 oz) Physical Exam Constitutional: General: She is not in acute distress. Appearance: She is not diaphoretic. HENT: Head: Normocephalic and atraumatic. Right Ear: External ear normal. Left Ear: External ear normal. Nose: Nose normal. Mouth/Throat: Pharynx: Oropharynx is clear. Eyes: General: Right eye: No discharge. Left eye: No discharge. Conjunctiva/sclera: Conjunctivae normal. Pupils: Pupils are equal, round, and reactive to light. Cardiovascular: Rate and Rhythm: Normal rate and regular rhythm. Heart sounds: Normal heart sounds, S1 normal and S2 normal. No murmur heard. No friction rub. No gallop. No S3 or S4 sounds. Pulmonary: Effort: Pulmonary effort is normal. No respiratory distress. Breath sounds: Normal breath sounds. No wheezing or rales. Chest: Chest wall: No tenderness. Abdominal: General: Abdomen is flat. Palpations: Abdomen is soft. Musculoskeletal: General: Normal range of motion. Cervical back: Normal range of motion and neck supple. Skin: General: Skin is warm and dry. Neurological: Mental Status: She is alert and oriented to person, place, and time. Psychiatric: Mood and Affect: Mood normal. Thought Content: Thought content normal. Judgment: Judgment normal. Pertinent Labs: CBC: Hemoglobin (g/dL) Date Value 07/21/2022 13.1 12/22/2020 13.4 Hematocrit (%) Date Value 07/21/2022 41.8 12/22/2020 43.4 WBC (k/uL) Date Value 07/21/2022 9.77 12/22/2020 7.77 Platelet Count (k/uL) Date Value 07/21/2022 346 12/22/2020 368 BMP: Glucose (mg/dL) Date Value 07/21/2022 68 01/31/2021 96 Potassium (mmol/L) Date Value 07/21/2022 4.3 01/31/2021 4.3 Sodium (mmol/L) Date Value 07/21/2022 142 01/31/2021 139 Chloride (mmol/L) Date Value 07/21/2022 106 01/31/2021 101 CO2 (mmol/L) Date Value 07/21/2022 28 01/31/2021 23 Creatinine (mg/dL) Date Value 07/21/2022 0.75 01/31/2021 0.78 BUN (mg/dL) Date Value 07/21/2022 20 01/31/2021 19 Anion Gap (mmol/L) Date Value 07/21/2022 8 01/31/2021 15 Calcium (mg/dL) Date Value 01/31/2021 10.0 Calcium, Total (mg/dL) Date Value 07/21/2022 9.6 INR: Lipid Profile: Cholesterol, Total Date Value Ref Range Status 07/21/2022 220 (H) <200 mg/dL Final Comment: <200 mg/dL, Desirable 200-239 mg/dL, Borderline high >239 mg/dL, High HDL Cholesterol Date Value Ref Range Status 07/21/2022 46 >39 mg/dL Final Comment: 40-59 mg/dL, Acceptable >59 mg/dL, High: Negative risk factor for coronary heart disease <40 mg/dL, Low: Positive risk factor for coronary heart disease LDL Cholesterol Date Value Ref Range Status 07/21/2022 137 (H) <100 mg/dL Final Comment: <100 mg/dL, Optimal 100-129 mg/dL, Near optimal/above optimal 130-159 mg/dL, Borderline high 160-189 mg/dL, High >189 mg/dL, Very high Secondary prevention optimal LDL Cholesterol levels are recommended to be < 70 mg/dL Triglyceride Date Value Ref Range Status 07/21/2022 184 (H) <150 mg/dL Final Comment: <150 mg/dL, Normal 150-199 mg/dL, Borderline high 200-499 mg/dL, High >499 mg/dL, Very high Hemoglobin A1C: No results found for: HGBA1C TSH: No results found for: TSHREFL Prior Cardiac Testing ekg Assessment and Plan: 77 years old female patient with cardiomyopathy and nonobstructive coronary artery disease Cardiomyopathy The degree of cardiomyopathy out of proportion of the degree of coronary artery disease Schedule Holter monitor to rule out atrial fibrillation Patient did not tolerate Entresto because of extensive and severe itching She is willing to retry the Entresto once we establish diagnosis of arrhythmia 2. Palpitation High likelihood of atrial fibrillation Holter monitor for 2 weeks Follow up plannin months Electronically signed by Santo Oneill MD on August 14, 2022, 12:03 PM The above note was partially created using a dictation recognition software. A reasonable attempt has been made to correct any errors. EVENT MONITOR DISPOSABLE PATCH INSTRUCTIONS Patient Name: Sandra Schmitz Clinic Number: [id number] Skin prepped and cleansed with alcohol Patch secured to prepped area Monitor Activated Serial #: [id number] Patient Instructed: Prescribed order timeframe Bathing guidelines Usage of event button and diary documentation Return of monitor at the end of prescribed order Call with problems [phone] or [phone]. [phone] Patient expresses a good understanding of instructions Anni Roldan * Santo Oneill MD - 08/14/2022 11:57 AM EDT Images from the original note were not included. Santo Oneill MD Interventional Cardiology [facility] [address], [place] [address] [phone] Chief Complaint Patient presents with: Established Patient Follow-Up HISTORY OF PRESENT ILLNESS: Ms. Schmitz is a 77 year old female in the office for follow-up patient had prior moderate proximal LAD disease with moderate left ventricular systolic dysfunction appropriate medical therapy She was initiated on Entresto but after 3 weeks started having's extensive itching Entresto was discontinued and she went back on losartan Patient is having recurrent episodes of sudden onset palpitations associated with shortness of breath not feeling well Description suggestive of arrhythmia EKG showed left bundle branch block normal sinus rhythm Echocardiography showed ejection fraction of 35% Cardiac Risk Factors age (male over 45, female over 55), hyperlipidemia, hypertension, family history of CAD PAST MEDICAL HISTORY Diagnosis Date Acute acalculous cholecystitis 05/30/2020 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 09/22/2020 Acute on chronic systolic CHF (congestive heart failure) (HCC) 05/03/2020 Aspiration pneumonia (HCC) 05/30/2020 Chest pain 05/03/2020 Chest pressure 01/23/2013 Chronic diastolic congestive heart failure (HCC) 02/14/2021 Clostridium difficile diarrhea 09/28/2020 Complete uterovaginal prolapse Cystocele, midline Essential hypertension 06/14/2020 Homozygous Factor V Leiden mutation (HCC) 05/03/2020 Hypothyroidism IBS (irritable bowel syndrome) 01/23/2013 Palpitation CHRONIC Post-operative state 05/24/2020 Rectocele 05/25/2020 Shortness of breath 05/03/2020 Status post laparoscopic hysterectomy 05/30/2020 Tubular adenoma of colon 12/09/2020 Uterine prolapse 05/03/2020 PAST SURGICAL HISTORY Procedure Laterality Date COLONOSCOPY 01/07/2015 COLONOSCOPY 12/05/2021 repeat in 5 years COLONOSCOPY GEN ANES 12/06/2009 X3 LAST ONE IN 2009 EGD 11/08/2012 EGD 12/05/2021 PAST SURGICAL HISTORY OF 05/14/1999 left foot bunionectomy w/screws PAST SURGICAL HISTORY OF 05/14/1981 ectopic w/tube removal PAST SURGICAL HISTORY OF 2009 CYST REMOVED FROM UTERUS PAST SURGICAL HISTORY OF 05/24/2020 TVH, partial colpectomy, anterior colporrhaphy, Dennis transobturator midurethral sling, cystourethroscopy, rectocele repair with perineorrhaphy, laparoscopic lysis of adhesions and excision of bilateral adnexal structures PAST SURGICAL HISTORY OF 09/07/2020 Laparoscopic cholecystectomy with intraoperative cholangiograms. Dr. Ragsdale FAMILY HISTORY Problem Relation Age of Onset Blood Disease Mother Coronary Artery Disease Mother Cancer Mother lung Blood Disease Father Coronary Artery Disease Father Heart Father pacemaker Diabetes Father Breast Cancer Sister younger sis. COPD Brother Hypertension Brother Heart disease Brother Coronary Artery Disease Maternal Grandmother Ischemic Heart Disease Maternal Grandfather Coronary Artery Disease Maternal Grandfather Coronary Artery Disease Daughter Social History Tobacco Use Smoking status: Former Types: Cigarettes Quit date: 10/22/2002 Years since quittin.8 Smokeless tobacco: Never Vaping Use Vaping Use: Never used Substance Use Topics Alcohol use: No Drug use: No ALLERGIES Allergen Reactions Emilio Inhibitors Other: See Comments Short of breath, symptoms of heart failure Beta-Blockers (Beta* Other: See Comments Short of breath, symptoms of heart failure Augmentin [Amoxicil* GI Upset Codeine Mental Status Change Patient felt like she was made out of lead Lipitor [Atorvastat* Myalgia Muscle aches Sulfa (Sulfonamide * Other: See Comments Amlodipine Other: See Comments lightheaded Medications: Current Outpatient Medications Medication Sig Dispense Refill levothyroxine (LEVOXYL) 88 mcg tablet Take 1 tablet by mouth once daily. Take on empty stomach. ForThyroid 90 tablet 1 cyanocobalamin (VITAMIN B-12) 1,000 mcg tab Take 1 tablet by mouth once daily. 30 tablet 2 metoprolol succinate ER (TOPROL XL) 25 mg 24 hr tablet Take 1 tablet by mouth once daily. 90 tablet0 benzonatate (TESSALON PERLES) 100 mg capsule Take 1 capsule by mouth three times daily as needed for cough. 21 capsule 0 promethazine (PHENERGAN) 6.25 mg/5 mL syrup Take 5-10ml by mouth 4 times daily as needed for cough 200 mL 0 Cholecalciferol, Vitamin D3, 50 mcg (2,000 unit) cap Take 2 capsules by mouth once daily. omeprazole (PRILOSEC) 40 mg capsule Take 1 capsule by mouth once daily. 30 capsule 2 losartan (COZAAR) 50 mg tablet Take 1 tablet by mouth once daily. 90 tablet 3 OREGANO OIL ORAL Take by mouth once daily. L. acidophilus/L. rhamnosus (FLORAJEN WOMEN ORAL) Take by mouth once daily. ondansetron (ZOFRAN) 4 mg tablet Take 1 tablet by mouth once daily as needed (for nausea.). 30 tablet 0 ZINC ORAL Take by mouth as needed. furosemide (LASIX) 20 mg tablet Take 1 tablet by mouth once daily as needed. (Patient taking differently: Take 20 mg by mouth as needed.) 90 tablet 3 aspirin, enteric coated (ECOTRIN LOW STRENGTH) 81 mg EC tablet Take 1 tablet by mouth once daily. 0 Current Facility-Administered Medications Medication Dose Route Frequency Provider Last Rate Last Admin perflutren lipid microspheres 1.3 mL in NaCl (PF) 0.9% 10 mL injection (DEFINITY) INTRAVENOUS DIRECTED PRN Santo Oneill MD sodium chloride 0.9 % (flush) 10 mL (BD POSIFLUSH) 10 mL INTRAVENOUS DIRECTED PRN Santo Oneill MD perflutren lipid microspheres 1.3 mL in NaCl (PF) 0.9% 10 mL injection (DEFINITY) INTRAVENOUS DIRECTED PRN Santo Oneill MD sodium chloride 0.9 % (flush) 10 mL (BD POSIFLUSH) 10 mL INTRAVENOUS DIRECTED PRN Santo Oneill MD Review of Systems Constitutional: Negative for chills, diaphoresis, fever, malaise/fatigue and weight loss. HENT: Negative for congestion, ear discharge, ear pain, hearing loss, nosebleeds, sinus pain, sore throat and tinnitus. Eyes: Negative for blurred vision, double vision, photophobia, pain, discharge and redness. Respiratory: Negative for cough, hemoptysis, sputum production, shortness of breath, wheezing and stridor. Cardiovascular: Negative for chest pain, palpitations, orthopnea, claudication, leg swelling and PND. Gastrointestinal: Negative for abdominal pain, blood in stool, constipation, diarrhea, heartburn, melena, nausea and vomiting. Genitourinary: Negative for dysuria, flank pain, frequency, hematuria and urgency. Musculoskeletal: Negative for back pain, falls, joint pain, myalgias and neck pain. Skin: Negative for itching and rash. Neurological: Negative for dizziness, tingling, tremors, sensory change, speech change, focal weakness, seizures, loss of consciousness, weakness and headaches. Endo/Heme/Allergies: Negative for environmental allergies and polydipsia. Does not bruise/bleed easily. Psychiatric/Behavioral: Negative for depression, hallucinations, memory loss, substance abuse and suicidal ideas. The patient is not nervous/anxious and does not have insomnia. Physical Examination: Vitals:BP 110/70 Pulse 87 Wt 192 lb (87.1kg) SpO2 94% BP w/Orthostatic Vitals Date and Time Orthostatic BP Orthostatic Pulse BP Pulse BP Position BP Site BP Cuff Size 08/14/22 1120 -- -- 110/70 87 Sitting Right Arm Large Adult Last 2 Encounter Wt Readings: Date: Wt: 08/14/2022 87.1 kg (192 lb) 07/21/2022 89.5 kg (197 lb 6.4 oz) Physical Exam Constitutional: General: She is not in acute distress. Appearance: She is not diaphoretic. HENT: Head: Normocephalic and atraumatic. Right Ear: External ear normal. Left Ear: External ear normal. Nose: Nose normal. Mouth/Throat: Pharynx: Oropharynx is clear. Eyes: General: Right eye: No discharge. Left eye: No discharge. Conjunctiva/sclera: Conjunctivae normal. Pupils: Pupils are equal, round, and reactive to light. Cardiovascular: Rate and Rhythm: Normal rate and regular rhythm. Heart sounds: Normal heart sounds, S1 normal and S2 normal. No murmur heard. No friction rub. No gallop. No S3 or S4 sounds. Pulmonary: Effort: Pulmonary effort is normal. No respiratory distress. Breath sounds: Normal breath sounds. No wheezing or rales. Chest: Chest wall: No tenderness. Musculoskeletal: General: Normal range of motion. Cervical back: Normal range of motion and neck supple. Skin: General: Skin is warm and dry. Neurological: Mental Status: She is alert and oriented to person, place, and time. Psychiatric: Mood and Affect: Mood normal. Thought Content: Thought content normal. Pertinent Labs: CBC: Hemoglobin (g/dL) Date Value 07/21/2022 13.1 12/22/2020 13.4 Hematocrit (%) Date Value 07/21/2022 41.8 12/22/2020 43.4 WBC (k/uL) Date Value 07/21/2022 9.77 12/22/2020 7.77 Platelet Count (k/uL) Date Value 07/21/2022 346 12/22/2020 368 BMP: Glucose (mg/dL) Date Value 07/21/2022 68 01/31/2021 96 Potassium (mmol/L) Date Value 07/21/2022 4.3 01/31/2021 4.3 Sodium (mmol/L) Date Value 07/21/2022 142 01/31/2021 139 Chloride (mmol/L) Date Value 07/21/2022 106 01/31/2021 101 CO2 (mmol/L) Date Value 07/21/2022 28 01/31/2021 23 Creatinine (mg/dL) Date Value 07/21/2022 0.75 01/31/2021 0.78 BUN (mg/dL) Date Value 07/21/2022 20 01/31/2021 19 Anion Gap (mmol/L) Date Value 07/21/2022 8 01/31/2021 15 Calcium (mg/dL) Date Value 01/31/2021 10.0 Calcium, Total (mg/dL) Date Value 07/21/2022 9.6 INR: Lipid Profile: Cholesterol, Total Date Value Ref Range Status 07/21/2022 220 (H) <200 mg/dL Final Comment: <200 mg/dL, Desirable 200-239 mg/dL, Borderline high >239 mg/dL, High HDL Cholesterol Date Value Ref Range Status 07/21/2022 46 >39 mg/dL Final Comment: 40-59 mg/dL, Acceptable >59 mg/dL, High: Negative risk factor for coronary heart disease <40 mg/dL, Low: Positive risk factor for coronary heart disease LDL Cholesterol Date Value Ref Range Status 07/21/2022 137 (H) <100 mg/dL Final Comment: <100 mg/dL, Optimal 100-129 mg/dL, Near optimal/above optimal 130-159 mg/dL, Borderline high 160-189 mg/dL, High >189 mg/dL, Very high Secondary prevention optimal LDL Cholesterol levels are recommended to be < 70 mg/dL Triglyceride Date Value Ref Range Status 07/21/2022 184 (H) <150 mg/dL Final Comment: <150 mg/dL, Normal 150-199 mg/dL, Borderline high 200-499 mg/dL, High >499 mg/dL, Very high Hemoglobin A1C: No results found for: HGBA1C TSH: No results found for: TSHREFL Prior Cardiac Testing EKG Assessment and Plan: 77 years old female patient with mild nonobstructive coronary artery disease and cardiomyopathy Coronary artery disease Nonobstructive we will treat medically 2. Cardiomyopathy Is out of proportion of the degree of coronary artery disease With recent symptoms of palpitation shortness of breath potentially she might have an arrhythmia weneed to rule out atrial fibrillation Schedule for monitor for 2 weeks Cardiology plan Holter monitor for 2-week Retrial the Entresto instead of losartan Echocardiography to assess LV function Follow up plannin MONTHS Electronically signed by Santo Oneill MD on August 14, 2022, 11:58 AM The above note was partially created using a dictation recognition software. A reasonable attempt has been made to correct any errors. 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 Right mid back and rib pain >left side, no known recent injuries. Off and on symptoms x years, no rash or fevers or chills. Has tried icy hot and heating pad and ice with some relief. 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 No fevers or chills or flank pain Also concerns for food allergy to gluten and nuts. She would like lab testing if available. When eating these foods, sometimes she ends up with hives or rash or itching. No angioedema or breathing issues in the past. PAST MEDICAL HISTORY Diagnosis Date Acute acalculous cholecystitis 05/30/2020 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 09/22/2020 Acute on chronic systolic CHF (congestive heart failure) ([facility]) 05/03/2020 Aspiration pneumonia ([facility]) 05/30/2020 Chest pain 05/03/2020 Chest pressure 01/23/2013 Chronic diastolic congestive heart failure ([facility]) 02/14/2021 Clostridium difficile diarrhea 09/28/2020 Complete uterovaginal prolapse Cystocele, midline Essential hypertension 06/14/2020 Homozygous Factor V Leiden mutation ([facility]) 05/03/2020 Hypothyroidism IBS (irritable bowel syndrome) 01/23/2013 Palpitation CHRONIC Post-operative state 05/24/2020 Rectocele 05/25/2020 Shortness of breath 05/03/2020 Status post laparoscopic hysterectomy 05/30/2020 Tubular adenoma of colon 12/09/2020 Uterine prolapse 05/03/2020 PAST SURGICAL HISTORY Procedure Laterality Date COLONOSCOPY 01/07/2015 COLONOSCOPY 12/05/2021 repeat in 5 years COLONOSCOPY GEN ANES 12/06/2009 X3 LAST ONE IN 2009 EGD 11/08/2012 EGD 12/05/2021 PAST SURGICAL HISTORY OF 05/14/1999 left foot bunionectomy w/screws PAST SURGICAL HISTORY OF 05/14/1981 ectopic w/tube removal PAST SURGICAL HISTORY OF 2009 CYST REMOVED FROM UTERUS PAST SURGICAL HISTORY OF 05/24/2020 TVH, partial colpectomy, anterior colporrhaphy, Dennis transobturator midurethral sling, cystourethroscopy, rectocele repair with perineorrhaphy, laparoscopic lysis of adhesions and excision of bilateral adnexal structures PAST SURGICAL HISTORY OF 09/07/2020 Laparoscopic cholecystectomy with intraoperative cholangiograms. Dr. Ragsdale Current Outpatient Medications Medication Sig levothyroxine (LEVOXYL) 88 mcg tablet Take 1 tablet by mouth once daily. Take on empty stomach. ForThyroid cyanocobalamin (VITAMIN B-12) 1,000 mcg tab Take 1 tablet by mouth once daily. metoprolol succinate ER (TOPROL XL) 25 mg 24 hr tablet Take 1 tablet by mouth once daily. benzonatate (TESSALON PERLES) 100 mg capsule Take 1 capsule by mouth three times daily as needed for cough. promethazine (PHENERGAN) 6.25 mg/5 mL syrup Take 5-10ml by mouth 4 times daily as needed for cough Cholecalciferol, Vitamin D3, 50 mcg (2,000 unit) cap Take 2 capsules by mouth once daily. omeprazole (PRILOSEC) 40 mg capsule Take 1 capsule by mouth once daily. losartan (COZAAR) 50 mg tablet Take 1 tablet by mouth once daily. OREGANO OIL ORAL Take by mouth once daily. L. acidophilus/L. rhamnosus (FLORAJEN WOMEN ORAL) Take by mouth once daily. ondansetron (ZOFRAN) 4 mg tablet Take 1 tablet by mouth once daily as needed (for nausea.). ZINC ORAL Take by mouth as needed. furosemide (LASIX) 20 mg tablet Take 1 tablet by mouth once daily as needed. (Patient taking differently: Take 20 mg by mouth as needed.) aspirin, enteric coated (ECOTRIN LOW STRENGTH) 81 mg EC tablet Take 1 tablet by mouth once daily. Current Facility-Administered Medications Medication Dose Route Frequency perflutren lipid microspheres 1.3 mL in NaCl (PF) 0.9% 10 mL injection (DEFINITY) INTRAVENOUS DIRECTED PRN sodium chloride 0.9 % (flush) 10 mL (BD POSIFLUSH) 10 mL INTRAVENOUS DIRECTED PRN perflutren lipid microspheres 1.3 mL in NaCl (PF) 0.9% 10 mL injection (DEFINITY) INTRAVENOUS DIRECTED PRN sodium chloride 0.9 % (flush) 10 mL (BD POSIFLUSH) 10 mL INTRAVENOUS DIRECTED PRN ALLERGIES Allergen Reactions Emilio Inhibitors Other: See Comments Short of breath, symptoms of heart failure Beta-Blockers (Beta* Other: See Comments Short of breath, symptoms of heart failure Augmentin [Amoxicil* GI Upset Codeine Mental Status Change Patient felt like she was made out of lead Lipitor [Atorvastat* Myalgia Muscle aches Sulfa (Sulfonamide * Other: See Comments Amlodipine Other: See Comments lightheaded Social History Tobacco Use Smoking status: Former Types: Cigarettes Quit date: 10/22/2002 Years since quittin.8 Smokeless tobacco: Never Vaping Use Vaping Use: Never used Substance Use Topics Alcohol use: No Drug use: No ROS: See HPI PE: There were no vitals taken for this visit. Gen: A&OX3, NAD, non-toxic appearing HEENT: PERRLA, EOMs intact b/l, nares without drainage, pharynx without erythema, exudate, lesions,or drainage. Uvula midline. Neck: No LAD, no thyromegaly, no meningismus. Trapezius muscle tension and spasm present right >left [id number] Right posterior rib 6 inhalation dysfunction [id number] Skin: No rashes, lesions, or wounds on exposed skin. Intact neurovascular supply to legs and arms No edema No CVA TTP ASSESSMENT/PLAN: 1. Dysuria - ICD9: 788.1, ICD10: R30.0 (primary diagnosis) acute - UA positive for cruz esterase - Send urine for culture - Patient education for prevention given - URINALYSIS, WITH MICROSCOPIC - URINE CULTURE 2. Urticaria - ICD9: 708.9, ICD10: L50.9 - Likely viral or allergic etiology discussed with patient - Follow up if symptoms persist or worsen. - COMP METABOLIC PANEL - CBC + DIFF - ALGN PECAN NUT IGE - ALGN CASHEW NUT IGE - ALGN PEANUT IGE - ALGN WHEAT IGE - ALGN GLUTEN IGE - ALGN ALMOND IGE 3. Food allergy - ICD9: V15.05, ICD10: Z91.018 - COMP METABOLIC PANEL - CBC + DIFF - ALGN PECAN NUT IGE - ALGN CASHEW NUT IGE - ALGN PEANUT IGE - ALGN WHEAT IGE - ALGN GLUTEN IGE - ALGN ALMOND IGE 4. Allergic urticaria - ICD9: 708.0, ICD10: L50.0 - Likely viral or allergic etiology discussed with patient - Follow up if symptoms persist or worsen. - COMP METABOLIC PANEL - CBC + DIFF - ALGN PECAN NUT IGE - ALGN CASHEW NUT IGE - ALGN PEANUT IGE - ALGN WHEAT IGE - ALGN GLUTEN IGE - ALGN ALMOND IGE 5. Somatic dysfunction of spine, thoracic - ICD9: 739.2, ICD10: M99.02 OMT: Discussed risks, benefits, alternatives, and potential SEs of treatment. Patient wished to proceed with OMT. OMT was performed to the cervical region, thoracic region, cervical region and ribs including soft tissue, functional methods. Patient tolerated treatment well with good release, increase ROM, and decrease in pain, without complications. Instructed patient to drink plenty of water. Gentle stretches at home. 6. Somatic dysfunction of rib - ICD9: 739.8, ICD10: M99.08 OMT: Discussed risks, benefits, alternatives, and potential SEs of treatment. Patient wished to proceed with OMT. OMT was performed to the cervical region, thoracic region, cervical region and ribs including soft tissue, functional methods. Patient tolerated treatment well with good release, increase ROM, and decrease in pain, without complications. Instructed patient to drink plenty of water. Gentle stretches at home. 7. Somatic dysfunction of spine, cervical - ICD9: 739.1, ICD10: M99.01 OMT: Discussed risks, benefits, alternatives, and potential SEs of treatment. Patient wished to proceed with OMT. OMT was performed to the cervical region, thoracic region, cervical region and ribs including soft tissue, functional methods. Patient tolerated treatment well with good release, increase ROM, and decrease in pain, without complications. Instructed patient to drink plenty of water. Gentle stretches at home. 8. Rib pain on right side - ICD9: 786.50, ICD10: R07.81 OMT: Discussed risks, benefits, alternatives, and potential SEs of treatment. Patient wished to proceed with OMT. OMT was performed to the cervical region, thoracic region, cervical region and ribs including soft tissue, functional methods. Patient tolerated treatment well with good release, increase ROM, and decrease in pain, without complications. Instructed patient to drink plenty of water. Gentle stretches at home. 9. Somatic dysfunction of head region - ICD9: 739.0, ICD10: M99.00 OMT: Discussed risks, benefits, alternatives, and potential SEs of treatment. Patient wished to proceed with OMT. OMT was performed to the cervical region, thoracic region, cervical region and ribs including soft tissue, functional methods. Patient tolerated treatment well with good release, increase ROM, and decrease in pain, without complications. Instructed patient to drink plenty of water. Gentle stretches at home. Mandeep Houser DO Return if no improvement. Follow up with Mandeep Houser DO. To ER if develops chest pain, shortness of breath Discussed risks, benefits, alternatives, and potential side effects of medications. Patient/Guardian expressed understanding and agreed with the plan. See patient instructions. Mandeep Houser DO [id number] [place] [address] documented [facility] this [facility] History of Present illness Narrative* Mandeep Houser DO - 08/10/2022 11:10 AM EDT CC: Sandra Schmitz is a 77 year old female who presents to the office for OMT HPI: Here for OMT today Right mid back and rib pain >left side, no known recent injuries. Off and on symptoms x years, no rash or fevers or chills. Has tried icy hot and heating pad and ice with some relief. Has gotten benefit from OMT in the past PAST MEDICAL HISTORY Diagnosis Date Acute acalculous cholecystitis 05/30/2020 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 09/22/2020 Acute on chronic systolic CHF (congestive heart failure) ([facility]) 05/03/2020 Aspiration pneumonia ([facility]) 05/30/2020 Chest pain 05/03/2020 Chest pressure 01/23/2013 Chronic diastolic congestive heart failure (HCC) 02/14/2021 Clostridium difficile diarrhea 09/28/2020 Complete uterovaginal prolapse Cystocele, midline Essential hypertension 06/14/2020 Homozygous Factor V Leiden mutation (HCC) 05/03/2020 Hypothyroidism IBS (irritable bowel syndrome) 01/23/2013 Palpitation CHRONIC Post-operative state 05/24/2020 Rectocele 05/25/2020 Shortness of breath 05/03/2020 Status post laparoscopic hysterectomy 05/30/2020 Tubular adenoma of colon 12/09/2020 Uterine prolapse 05/03/2020 PAST SURGICAL HISTORY Procedure Laterality Date COLONOSCOPY 01/07/2015 COLONOSCOPY 12/05/2021 repeat in 5 years COLONOSCOPY GEN ANES 12/06/2009 X3 LAST ONE IN 2009 EGD 11/08/2012 EGD 12/05/2021 PAST SURGICAL HISTORY OF 05/14/1999 left foot bunionectomy w/screws PAST SURGICAL HISTORY OF 05/14/1981 ectopic w/tube removal PAST SURGICAL HISTORY OF 2009 CYST REMOVED FROM UTERUS PAST SURGICAL HISTORY OF 05/24/2020 TVH, partial colpectomy, anterior colporrhaphy, Dennis transobturator midurethral sling, cystourethroscopy, rectocele repair with perineorrhaphy, laparoscopic lysis of adhesions and excision of bilateral adnexal structures PAST SURGICAL HISTORY OF 09/07/2020 Laparoscopic cholecystectomy with intraoperative cholangiograms. Dr. Ragsdale Current Outpatient Medications Medication Sig levothyroxine (LEVOXYL) 88 mcg tablet Take 1 tablet by mouth once daily. Take on empty stomach. ForThyroid cyanocobalamin (VITAMIN B-12) 1,000 mcg tab Take 1 tablet by mouth once daily. metoprolol succinate ER (TOPROL XL) 25 mg 24 hr tablet Take 1 tablet by mouth once daily. benzonatate (TESSALON PERLES) 100 mg capsule Take 1 capsule by mouth three times daily as needed for cough. promethazine (PHENERGAN) 6.25 mg/5 mL syrup Take 5-10ml by mouth 4 times daily as needed for cough Cholecalciferol, Vitamin D3, 50 mcg (2,000 unit) cap Take 2 capsules by mouth once daily. omeprazole (PRILOSEC) 40 mg capsule Take 1 capsule by mouth once daily. losartan (COZAAR) 50 mg tablet Take 1 tablet by mouth once daily. OREGANO OIL ORAL Take by mouth once daily. L. acidophilus/L. rhamnosus (FLORAJEN WOMEN ORAL) Take by mouth once daily. ondansetron (ZOFRAN) 4 mg tablet Take 1 tablet by mouth once daily as needed (for nausea.). ZINC ORAL Take by mouth as needed. furosemide (LASIX) 20 mg tablet Take 1 tablet by mouth once daily as needed. (Patient taking differently: Take 20 mg by mouth as needed.) aspirin, enteric coated (ECOTRIN LOW STRENGTH) 81 mg EC tablet Take 1 tablet by mouth once daily. Current Facility-Administered Medications Medication Dose Route Frequency perflutren lipid microspheres 1.3 mL in NaCl (PF) 0.9% 10 mL injection (DEFINITY) INTRAVENOUS DIRECTED PRN sodium chloride 0.9 % (flush) 10 mL (BD POSIFLUSH) 10 mL INTRAVENOUS DIRECTED PRN perflutren lipid microspheres 1.3 mL in NaCl (PF) 0.9% 10 mL injection (DEFINITY) INTRAVENOUS DIRECTED PRN sodium chloride 0.9 % (flush) 10 mL (BD POSIFLUSH) 10 mL INTRAVENOUS DIRECTED PRN ALLERGIES Allergen Reactions Emilio Inhibitors Other: See Comments Short of breath, symptoms of heart failure Beta-Blockers (Beta* Other: See Comments Short of breath, symptoms of heart failure Augmentin [Amoxicil* GI Upset Codeine Mental Status Change Patient felt like she was made out of lead Lipitor [Atorvastat* Myalgia Muscle aches Sulfa (Sulfonamide * Other: See Comments Amlodipine Other: See Comments lightheaded Social History Tobacco Use Smoking status: Former Types: Cigarettes Quit date: 10/22/2002 Years since quittin.8 Smokeless tobacco: Never Vaping Use Vaping Use: Never used Substance Use Topics Alcohol use: No Drug use: No ROS: See HPI PE: There were no vitals taken for this visit. Gen: A&OX3, NAD, non-toxic appearing HEENT: PERRLA, EOMs intact b/l, nares without drainage, pharynx without erythema, exudate, lesions,or drainage. Uvula midline. Neck: No LAD, no thyromegaly, no meningismus. Trapezius muscle tension and spasm present right >left Right posterior rib 6-8 inhalation dysfunction [id number] Skin: No rashes, lesions, or wounds on exposed skin. ASSESSMENT/PLAN: 1. Chronic bilateral thoracic back pain - ICD9: 724.1, 338.29, ICD10: M54.6, G89.29 (primary diagnosis) OMT: Discussed risks, benefits, alternatives, and potential SEs of treatment. Patient wished to proceed with OMT. OMT was performed to the cervical region, thoracic region, head region and ribs including soft tissue, functional methods. Patient tolerated treatment well with good release, increase ROM, and decrease in pain, without complications. Instructed patient to drink plenty of water. Gentlestretches at home. 2. Somatic dysfunction of rib - ICD9: 739.8, ICD10: M99.08 OMT: Discussed risks, benefits, alternatives, and potential SEs of treatment. Patient wished to proceed with OMT. OMT was performed to the cervical region, thoracic region, head region and ribs including soft tissue, functional methods. Patient tolerated treatment well with good release, increase ROM, and decrease in pain, without complications. Instructed patient to drink plenty of water. Gentlestretches at home. 3. Somatic dysfunction of spine, thoracic - ICD9: 739.2, ICD10: M99.02 OMT: Discussed risks, benefits, alternatives, and potential SEs of treatment. Patient wished to proceed with OMT. OMT was performed to the cervical region, thoracic region, head region and ribs including soft tissue, functional methods. Patient tolerated treatment well with good release, increase ROM, and decrease in pain, without complications. Instructed patient to drink plenty of water. Gentlestretches at home. 4. Somatic dysfunction of spine, cervical - ICD9: 739.1, ICD10: M99.01 OMT: Discussed risks, benefits, alternatives, and potential SEs of treatment. Patient wished to proceed with OMT. OMT was performed to the cervical region, thoracic region, head region and ribs including soft tissue, functional methods. Patient tolerated treatment well with good release, increase ROM, and decrease in pain, without complications. Instructed patient to drink plenty of water. Gentlestretches at home. 5. Rib pain on right side - ICD9: 786.50, ICD10: R07.81 OMT: Discussed risks, benefits, alternatives, and potential SEs of treatment. Patient wished to proceed with OMT. OMT was performed to the cervical region, thoracic region, head region and ribs including soft tissue, functional methods. Patient tolerated treatment well with good release, increase ROM, and decrease in pain, without complications. Instructed patient to drink plenty of water. Gentlestretches at home. 6. Somatic dysfunction of head region - ICD9: 739.0, ICD10: M99.00 OMT: Discussed risks, benefits, alternatives, and potential SEs of treatment. Patient wished to proceed with OMT. OMT was performed to the cervical region, thoracic region, head region and ribs including soft tissue, functional methods. Patient tolerated treatment well with good release, increase ROM, and decrease in pain, without complications. Instructed patient to drink plenty of water. Gentlestretches at home. Mandeep Houser DO Return if no improvement. Follow up with Mandeep Houser DO. To ER if develops chest pain, shortness of breath Discussed risks, benefits, alternatives, and potential side effects of medications. Patient/Guardian expressed understanding and agreed with the plan. See patient instructions. Mandeep Houser DO [address] [place] [address] documented in this encounterK[facility] History of Present illness Narrative* Linda Juarez - 08/03/2022 10:33 AM EDT POPULATION HEALTH NAVIGATION OUTREACH Action/FYI Left vm Patient Identified by Name and : NO Outreach Outcome/Action Unable to reach patient: Left message Did you use a PCP flex slot to schedule this appointment? No Reason for Outreach Care Gap or Scheduling/Wellness visits Payer: Payor: MEDICARE / Plan: MEDICARE A AND B / Product Type: Medicare / Care Gap Reviewed:: Specialty Scheduling Reminder: Reminder note to check Health Maintenance for items below Health Maintenance items due: BP CONTROLLED (<130/80) Never done SHINGRIX VACCINE(1 of 2) Never done DEPRESSION ASSESSMENT Never done Navigation Signature: Linda Juarez August 03, 2022 10:33 AM documented in this encounterK[facility]03-15-2023 Miscellaneous Notes* Telephone Encounter - Palak Jacobson Ma - 07/26/2022 4:59 PM EDT Patient notified and states has been on atorvastatin and crestor, could not tolerate either. * Telephone Encounter - Alejandrina Harvey APRN.CNP - 07/26/2022 3:26 PM EDT Her thyroid labs look good. I refilled her original rx. A1C (3-month blood glucose average) remains 5.7 which is the same as previous. This is on the lowest end of prediabetes. Cholesterol/lipids-remain elevated but stable. I see she didn't tolerate Lipitor in the past due toaching. Has she tried any other statin medications and/or willing to try a different medication? Her vitamin B12 level is in the normal range but on the lower end. I would recommend she begin taking a daily supplement-I've sent this in for her. Otherwise no other concerns. The following approved medication requests have been transmitted electronically. Requested Prescriptions Signed Prescriptions Disp Refills levothyroxine (LEVOXYL) 88 mcg tablet 90 tablet 1 Sig: Take 1 tablet by mouth once daily. Take on empty stomach. For Thyroid Authorizing Provider: ALEJANDRINA HARVEY cyanocobalamin (VITAMIN B-12) 1,000 mcg tab 30 tablet 2 Sig: Take 1 tablet by mouth once daily. Authorizing Provider: ALEJANDRINA HARVEY APRN.TIM * Telephone Encounter - Jyoti Josue RN - 07/26/2022 3:08 PM EDT Patient calls and notified of results and providers instructions. Patient verbalizes understanding. Patient asking for provider to review labs from 07/21/2022 and advise. Patient will need a new prescription for thyroid medication. Pended current prescription. Jyoti Josue RN * Telephone Encounter - Mane Pennington LPN - 07/26/2022 2:57 PM EDT Phoned patient and left message to return call and ask to speak to triage nurse for results. * Telephone Encounter - Alejandrina Harvey APRN.CNP - 07/26/2022 2:28 PM EDT Please let patient know that bone scan results show osteopenia. They need to be taking a daily calcium and Vitamin D3 supplement. *1200 mg - 1500 mg calcium per day *800 - 1000 International Units of vitamin D3 per day Alejandrina Harvey APRN.CNP documented in this encounterK[facility]03-14-2023 History of Present illness Narrative* Abraham Ibarra RT(Marlee) - 07/25/2022 3:00 PM EDT Radiology Service Progress Note PATIENT NAME: Sandra Schmitz DATE OF SERVICE: July 25, 2022 TIME: 3:03 PM PATIENT IDENTITY VERIFICATION COMPLETED USING TWO (2) IDENTIFIERS: Name and Date of confirmedby patient verbally. FALL SCREENING: Has the patient had 2 falls in the last year or 1 fall with injury or currently using an Ambulatory Assistive Device (Walker, Cane, Wheelchair, Crutches, etc.)? No PATIENT GENDER DATA: Female. status: : No status: NO. PATIENT RELEVANT IMPLANT DATA REVIEWED: Not Applicable RADIOLOGY DEPARTMENT: Bone Density PERIPHERAL IV DATA: Not applicable SIGNED BY: RT Hiram(R) July 25, 2022 3:03 PM documented in this encounterK[facility]03-10-2023 Instructions* Patient Instructions* Alejandrina Harvey APRN.CNP - 07/21/2022 10:51 AM EST Have your lab work completed. Consider the Shingles vaccine. Check with your insurance to see if they would like it to be given in the office or the pharmacy. Schedule your bone density scan looking for osteoarthritis. BONE MINERAL DENSITY PATIENT INSTRUCTIONS Bone mineral density testing measures the amount of calcium in certain parts of your bones. This information determines how strong your bones are. The test is used to detect osteoporosis, a disease in which the bone's mineral content and density are low, increasing a person's risk of fractures. Thelumbar spine (lower back) and the hip are the skeletal sites usually examined. For the test, remember that: 1. You cannot take this test if you are . 2. Eat a normal diet on the day of the test. 3. Take your medications as you normally would. 4. DO NOT take calcium supplements (such as Tums) for 24 hours before the test. 5. On the day of the test, leave valuables (jewelry or credit cards) at home. 6. The test should be performed prior to oral, rectal or IV contrast studies, or at least 7 days after any of these studies. For the test, you may be asked to wear a hospital gown. You will lie on your back, on a padded table, in a comfortable position. Generally, you can resume your usual activities immediately. documented in this encounterK[facility]03-10-2023 History of Present illness Narrative* Alejandrina Harvey APRN.CNP - 07/21/2022 10:47 AM EST Chief Complaint Patient presents with: F/U 6 months HPI Sandra Schmitz is a 77 year old female who presents here today for Above Complaints. Today: Here for 6 month follow up, denies any concerns or complaints today. Past medical history, appointments, medications, allergies reviewed. Previous Medical History PAST MEDICAL HISTORY Diagnosis Date Acute acalculous cholecystitis 05/30/2020 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 09/22/2020 Acute on chronic systolic CHF (congestive heart failure) ([facility]) 05/03/2020 Aspiration pneumonia ([facility]) 05/30/2020 Chest pain 05/03/2020 Chest pressure 01/23/2013 Chronic diastolic congestive heart failure (HCC) 02/14/2021 Clostridium difficile diarrhea 09/28/2020 Complete uterovaginal prolapse Cystocele, midline Essential hypertension 06/14/2020 Homozygous Factor V Leiden mutation (HCC) 05/03/2020 Hypothyroidism IBS (irritable bowel syndrome) 01/23/2013 Palpitation CHRONIC Post-operative state 05/24/2020 Rectocele 05/25/2020 Shortness of breath 05/03/2020 Status post laparoscopic hysterectomy 05/30/2020 Tubular adenoma of colon 12/09/2020 Uterine prolapse 05/03/2020 Previous Surgical History PAST SURGICAL HISTORY Procedure Laterality Date COLONOSCOPY 01/07/2015 COLONOSCOPY 12/05/2021 repeat in 5 years COLONOSCOPY GEN ANES 12/06/2009 X3 LAST ONE IN 2009 EGD 11/08/2012 EGD 12/05/2021 PAST SURGICAL HISTORY OF 05/14/1999 left foot bunionectomy w/screws PAST SURGICAL HISTORY OF 05/14/1981 ectopic w/tube removal PAST SURGICAL HISTORY OF 2009 CYST REMOVED FROM UTERUS PAST SURGICAL HISTORY OF 05/24/2020 TVH, partial colpectomy, anterior colporrhaphy, Dennis transobturator midurethral sling, cystourethroscopy, rectocele repair with perineorrhaphy, laparoscopic lysis of adhesions and excision of bilateral adnexal structures PAST SURGICAL HISTORY OF 09/07/2020 Laparoscopic cholecystectomy with intraoperative cholangiograms. Dr. Ragsdale Family History FAMILY HISTORY Problem Relation Age of Onset Blood Disease Mother Coronary Artery Disease Mother Cancer Mother lung Blood Disease Father Coronary Artery Disease Father Heart Father pacemaker Diabetes Father Breast Cancer Sister younger sis. COPD Brother Hypertension Brother Heart disease Brother Coronary Artery Disease Maternal Grandmother Ischemic Heart Disease Maternal Grandfather Coronary Artery Disease Maternal Grandfather Coronary Artery Disease Daughter Patient Allergies ALLERGIES Allergen Reactions Emilio Inhibitors Other: See Comments Short of breath, symptoms of heart failure Beta-Blockers (Beta* Other: See Comments Short of breath, symptoms of heart failure Augmentin [Amoxicil* GI Upset Codeine Mental Status Change Patient felt like she was made out of lead Lipitor [Atorvastat* Myalgia Muscle aches Sulfa (Sulfonamide * Other: See Comments Amlodipine Other: See Comments lightheaded Current Medications Current Outpatient Medications on File Prior to Visit Medication Sig metoprolol succinate ER (TOPROL XL) 25 mg 24 hr tablet Take 1 tablet by mouth once daily benzonatate (TESSALON PERLES) 100 mg capsule Take 1 capsule by mouth three times daily as needed for cough. promethazine (PHENERGAN) 6.25 mg/5 mL syrup Take 5-10ml by mouth 4 times daily as needed for cough Cholecalciferol, Vitamin D3, 50 mcg (2,000 unit) cap Take 2 capsules by mouth once daily. levothyroxine (LEVOXYL) 88 mcg tablet Take 1 tablet by mouth once daily. Take on empty stomach. ForThyroid omeprazole (PRILOSEC) 40 mg capsule Take 1 capsule by mouth once daily. losartan (COZAAR) 50 mg tablet Take 1 tablet by mouth once daily. OREGANO OIL ORAL Take by mouth once daily. L. acidophilus/L. rhamnosus (FLORAJEN WOMEN ORAL) Take by mouth once daily. ondansetron (ZOFRAN) 4 mg tablet Take 1 tablet by mouth once daily as needed (for nausea.). ZINC ORAL Take by mouth as needed. furosemide (LASIX) 20 mg tablet Take 1 tablet by mouth once daily as needed. (Patient taking differently: Take 20 mg by mouth as needed.) aspirin, enteric coated (ECOTRIN LOW STRENGTH) 81 mg EC tablet Take 1 tablet by mouth once daily. rosuvastatin (CRESTOR) 5 mg tablet Take 1 tablet by mouth once daily. (Patient not taking: Reportedon 03/10/2022) Current Facility-Administered Medications on File Prior to Visit Medication perflutren lipid microspheres 1.3 mL in NaCl (PF) 0.9% 10 mL injection (DEFINITY) sodium chloride 0.9 % (flush) 10 mL (BD POSIFLUSH) perflutren lipid microspheres 1.3 mL in NaCl (PF) 0.9% 10 mL injection (DEFINITY) sodium chloride 0.9 % (flush) 10 mL (BD POSIFLUSH) Social History Social History Tobacco Use Smoking status: Former Types: Cigarettes Quit date: 10/22/2002 Years since quittin.7 Smokeless tobacco: Never Vaping Use Vaping Use: Never used Substance Use Topics Alcohol use: No Drug use: No Review of Symptoms REVIEW OF SYSTEMS See HPI, otherwise negative EXAM: BP 130/78 (BP Site: Left Arm, BP Position: Sitting, BP Cuff Size: Regular Adult) Pulse 64 Wt 89.5 kg (197 lb 6.4 oz) SpO2 93% BMI 33.88 kg/m General Appearance: Well appearing, alert, in no acute distress, well-hydrated, well nourished.. Lungs: Lungs clear to auscultation. No wheezing, rhonchi, rales.. Heart: RRR without murmur, gallop, or rubs. No ectopy. Health Maintenance List HEPATITIS C SCREENING Never done DTAP,TDAP,TD(1 - Tdap) Never done SHINGRIX VACCINE(1 of 2) Never done BONE DENSITY Never done PNEUMOCOCCAL: 65+(2 - PCV) due on 12/29/2021 ADVANCE DIRECTIVE DISCUSSION Never done DEPRESSION ASSESSMENT Never done LDL CHOLESTEROL due on 01/12/2023 BP CONTROLLED (<130/80) due on 03/10/2023 ANNUAL PCP TEAM CHRONIC DISEASE VISIT due on 07/19/2023 DIABETES SCREEN due on 05/22/2025 INFLUENZA Discontinued COVID-19 VACCINE Discontinued Data reviewed Previous records, office notes ASSESSMENT/PLAN: 1. Hypothyroidism, unspecified type - ICD9: 244.9, ICD10: E03.9 (primary diagnosis) Controlled. Needing levothyroxine refill-will send pending lab results. - TSH BLD - T3 BLD - T4 FREE/FREE THYROX 2. Primary hypertension - ICD9: 401.9, ICD10: I10 - good control - Continue current medication(s) - Recommended regular aerobic exercise. - Recommend home blood pressure monitoring, to bring results in on next visit - Goal of BP <130/80 - CBC - COMP METABOLIC PANEL - METOPROLOL SUCCINATE ER 25 MG TABLET,EXTENDED RELEASE 24 HR 3. Mixed hyperlipidemia - ICD9: 272.2, ICD10: E78.2 - to be determined upon return of lab results - LIPID PANEL BASIC 4. Vitamin D deficiency - ICD9: 268.9, ICD10: E55.9 - VITAMIN D 25 HYDROXY 5. Asymptomatic menopause - ICD9: V49.81, ICD10: Z78.0 - DXA-AXIAL SKELETON 6. Encounter for vitamin deficiency screening - ICD9: V77.99, ICD10: Z13.21 - VITAMIN B12 BLOOD 7. Screening for diabetes mellitus - ICD9: V77.1, ICD10: Z13.1 - HGB A1C 8. Elevated glucose - ICD9: 790.29, ICD10: R73.09 - HGB A1C 9. Encounter for immunization - ICD9: V03.89, ICD10: Z23 - PNEUMOCOCCAL VACCINE (PREVNAR 20) 10. Screening for osteoporosis - ICD9: V82.81, ICD10: Z13.820 - DXA-AXIAL SKELETON Alejandrina Harvey APRN.DIRECTOR OF DONOR RELATIONS documented in this encounterK[facility]03-07-2023 History of Present illness Narrative* Mandeep Houser, - 07/18/2022 2:27 PM EST CC: Sandra Schmitz is a 77 year old female who presents to the office for follow up HPI: Here for OMT today Right mid back and rib pain >left side, no known recent injuries. Off and on symptoms x years, no rash or fevers or chills. Has tried icy hot and heating pad and ice with some relief. Has gotten benefit from OMT in the past PAST MEDICAL HISTORY Diagnosis Date Acute acalculous cholecystitis 05/30/2020 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 09/22/2020 Acute on chronic systolic CHF (congestive heart failure) (HCC) 05/03/2020 Aspiration pneumonia (HCC) 05/30/2020 Chest pain 05/03/2020 Chest pressure 01/23/2013 Chronic diastolic congestive heart failure (HCC) 02/14/2021 Clostridium difficile diarrhea 09/28/2020 Complete uterovaginal prolapse Cystocele, midline Essential hypertension 06/14/2020 Homozygous Factor V Leiden mutation (HCC) 05/03/2020 Hypothyroidism IBS (irritable bowel syndrome) 01/23/2013 Palpitation CHRONIC Post-operative state 05/24/2020 Rectocele 05/25/2020 Shortness of breath 05/03/2020 Status post laparoscopic hysterectomy 05/30/2020 Tubular adenoma of colon 12/09/2020 Uterine prolapse 05/03/2020 PAST SURGICAL HISTORY Procedure Laterality Date COLONOSCOPY 01/07/2015 COLONOSCOPY 12/05/2021 repeat in 5 years COLONOSCOPY GEN ANES 12/06/2009 X3 LAST ONE IN 2009 EGD 11/08/2012 EGD 12/05/2021 PAST SURGICAL HISTORY OF 05/14/1999 left foot bunionectomy w/screws PAST SURGICAL HISTORY OF 05/14/1981 ectopic w/tube removal PAST SURGICAL HISTORY OF 2009 CYST REMOVED FROM UTERUS PAST SURGICAL HISTORY OF 05/24/2020 TVH, partial colpectomy, anterior colporrhaphy, Dennis transobturator midurethral sling, cystourethroscopy, rectocele repair with perineorrhaphy, laparoscopic lysis of adhesions and excision of bilateral adnexal structures PAST SURGICAL HISTORY OF 09/07/2020 Laparoscopic cholecystectomy with intraoperative cholangiograms. Dr. Ragsdale Current Outpatient Medications Medication Sig metoprolol succinate ER (TOPROL XL) 25 mg 24 hr tablet Take 1 tablet by mouth once daily benzonatate (TESSALON PERLES) 100 mg capsule Take 1 capsule by mouth three times daily as needed for cough. promethazine (PHENERGAN) 6.25 mg/5 mL syrup Take 5-10ml by mouth 4 times daily as needed for cough Cholecalciferol, Vitamin D3, 50 mcg (2,000 unit) cap Take 2 capsules by mouth once daily. levothyroxine (LEVOXYL) 88 mcg tablet Take 1 tablet by mouth once daily. Take on empty stomach. ForThyroid omeprazole (PRILOSEC) 40 mg capsule Take 1 capsule by mouth once daily. losartan (COZAAR) 50 mg tablet Take 1 tablet by mouth once daily. rosuvastatin (CRESTOR) 5 mg tablet Take 1 tablet by mouth once daily. (Patient not taking: Reportedon 03/10/2022) OREGANO OIL ORAL Take by mouth once daily. L. acidophilus/L. rhamnosus (FLORAJEN WOMEN ORAL) Take by mouth once daily. ondansetron (ZOFRAN) 4 mg tablet Take 1 tablet by mouth once daily as needed (for nausea.). ZINC ORAL Take by mouth as needed. furosemide (LASIX) 20 mg tablet Take 1 tablet by mouth once daily as needed. (Patient taking differently: Take 20 mg by mouth as needed.) aspirin, enteric coated (ECOTRIN LOW STRENGTH) 81 mg EC tablet Take 1 tablet by mouth once daily. Current Facility-Administered Medications Medication Dose Route Frequency perflutren lipid microspheres 1.3 mL in NaCl (PF) 0.9% 10 mL injection (DEFINITY) INTRAVENOUS DIRECTED PRN sodium chloride 0.9 % (flush) 10 mL (BD POSIFLUSH) 10 mL INTRAVENOUS DIRECTED PRN perflutren lipid microspheres 1.3 mL in NaCl (PF) 0.9% 10 mL injection (DEFINITY) INTRAVENOUS DIRECTED PRN sodium chloride 0.9 % (flush) 10 mL (BD POSIFLUSH) 10 mL INTRAVENOUS DIRECTED PRN ALLERGIES Allergen Reactions Emilio Inhibitors Other: See Comments Short of breath, symptoms of heart failure Beta-Blockers (Beta* Other: See Comments Short of breath, symptoms of heart failure Augmentin [Amoxicil* GI Upset Codeine Mental Status Change Patient felt like she was made out of lead Lipitor [Atorvastat* Myalgia Muscle aches Sulfa (Sulfonamide * Other: See Comments Amlodipine Other: See Comments lightheaded Social History Tobacco Use Smoking status: Former Types: Cigarettes Quit date: 10/22/2002 Years since quittin.7 Smokeless tobacco: Never Vaping Use Vaping Use: Never used Substance Use Topics Alcohol use: No Drug use: No ROS: See HPI PE: There were no vitals taken for this visit. Gen: A&OX3, NAD, non-toxic appearing HEENT: PERRLA, EOMs intact b/l, nares without drainage, pharynx without erythema, exudate, lesions,or drainage. Uvula midline. Neck: No LAD, no thyromegaly, no meningismus. Trapezius muscle tension and spasm present right >left Right rib 6-7 inhalation dysfunction [id number] Skin: No rashes, lesions, or wounds on exposed skin. ASSESSMENT/PLAN: 1. Chronic right-sided thoracic back pain - ICD9: 724.1, 338.29, ICD10: M54.6, G89.29 (primary diagnosis) OMT: Discussed risks, benefits, alternatives, and potential SEs of treatment. Patient wished to proceed with OMT. OMT was performed to the cervical region, thoracic region,and ribs including soft tissue, functional methods. Patient tolerated treatment well with good release, increase ROM, and decrease in pain, without complications. Instructed patient to drink plenty of water. Gentle stretches athome. 2. Somatic dysfunction of spine, cervical - ICD9: 739.1, ICD10: M99.01 OMT: Discussed risks, benefits, alternatives, and potential SEs of treatment. Patient wished to proceed with OMT. OMT was performed to the cervical region, thoracic region,and ribs including soft tissue, functional methods. Patient tolerated treatment well with good release, increase ROM, and decrease in pain, without complications. Instructed patient to drink plenty of water. Gentle stretches athome. 3. Somatic dysfunction of spine, thoracic - ICD9: 739.2, ICD10: M99.02 OMT: Discussed risks, benefits, alternatives, and potential SEs of treatment. Patient wished to proceed with OMT. OMT was performed to the cervical region, thoracic region,and ribs including soft tissue, functional methods. Patient tolerated treatment well with good release, increase ROM, and decrease in pain, without complications. Instructed patient to drink plenty of water. Gentle stretches athome. 4. Somatic dysfunction of rib - ICD9: 739.8, ICD10: M99.08 OMT: Discussed risks, benefits, alternatives, and potential SEs of treatment. Patient wished to proceed with OMT. OMT was performed to the cervical region, thoracic region,and ribs including soft tissue, functional methods. Patient tolerated treatment well with good release, increase ROM, and decrease in pain, without complications. Instructed patient to drink plenty of water. Gentle stretches athome. 5. Rib pain on right side - ICD9: 786.50, ICD10: R07.81 OMT: Discussed risks, benefits, alternatives, and potential SEs of treatment. Patient wished to proceed with OMT. OMT was performed to the cervical region, thoracic region,and ribs including soft tissue, functional methods. Patient tolerated treatment well with good release, increase ROM, and decrease in pain, without complications. Instructed patient to drink plenty of water. Gentle stretches athome. Mandeep Houser DO Return if no improvement. Follow up with Mandeep Houser DO. To ER if develops chest pain, shortness of breath Discussed risks, benefits, alternatives, and potential side effects of medications. Patient/Guardian expressed understanding and agreed with the plan. See patient instructions. Mandeep Houser DO [address] [place] [address] documented in this encounterK[facility] Miscellaneous Notes* Telephone Encounter - Griselda Harris Ma - 05/25/2022 11:23 AM EST Pt informed, verbalized understanding Griselda Harris Ma * Telephone Encounter - Mandeep Houser DO - 05/24/2022 8:57 PM EST Please inform patient that her labs show that she was mildly low in glucose and her BUN was slightly high to show she was dehydrated. Otherwise labs were stable without concerns. Mandeep Houser DO documented in this encounterK[facility]01-03-2023 Miscellaneous Notes* Telephone Encounter - Leyla Ferreira RN - 05/16/2022 11:48 AM EST Requested Prescriptions Pending Prescriptions Disp Refills metoprolol succinate ER (TOPROL XL) 25 mg 24 hr tablet [Pharmacy Med Name: Metoprolol Succinate ER 25 MG Oral Tablet Extended Release 24 Hour] 90 tablet 0 Sig: Take 1 tablet by mouth once daily Patient calls following up from pharmacy's request. Please send RX to [facility] in [place]. documented in this encounterK[facility]12-21-2022 History of Present illness Narrative* Mandeep Houser DO - 05/03/2022 1:14 PM EST CC: Sandra Schmitz is a 76 year old female who presents to the office for rib soreness HPI: Here for OMT today States that she had been moving things around in an outlet so was bending over and twisting and then developed rib discomfort on right posterior mid back. No known pop or crack, pain is significant. Has tried icy hot and heating pad and ice with some relief. Has gotten benefit from OMT in the past PAST MEDICAL HISTORY Diagnosis Date Acute acalculous cholecystitis 05/30/2020 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 09/22/2020 Acute on chronic systolic CHF (congestive heart failure) (HCC) 05/03/2020 Aspiration pneumonia (HCC) 05/30/2020 Chest pain 05/03/2020 Chest pressure 01/23/2013 Chronic diastolic congestive heart failure (HCC) 02/14/2021 Clostridium difficile diarrhea 09/28/2020 Complete uterovaginal prolapse Cystocele, midline Essential hypertension 06/14/2020 Homozygous Factor V Leiden mutation (HCC) 05/03/2020 Hypothyroidism IBS (irritable bowel syndrome) 01/23/2013 Palpitation CHRONIC Post-operative state 05/24/2020 Rectocele 05/25/2020 Shortness of breath 05/03/2020 Status post laparoscopic hysterectomy 05/30/2020 Tubular adenoma of colon 12/09/2020 Uterine prolapse 05/03/2020 PAST SURGICAL HISTORY Procedure Laterality Date COLONOSCOPY 01/07/2015 COLONOSCOPY 12/05/2021 repeat in 5 years COLONOSCOPY GEN ANES 12/06/2009 X3 LAST ONE IN 2009 EGD 11/08/2012 EGD 12/05/2021 PAST SURGICAL HISTORY OF 05/14/1999 left foot bunionectomy w/screws PAST SURGICAL HISTORY OF 05/14/1981 ectopic w/tube removal PAST SURGICAL HISTORY OF 2009 CYST REMOVED FROM UTERUS PAST SURGICAL HISTORY OF 05/24/2020 TVH, partial colpectomy, anterior colporrhaphy, Dennis transobturator midurethral sling, cystourethroscopy, rectocele repair with perineorrhaphy, laparoscopic lysis of adhesions and excision of bilateral adnexal structures PAST SURGICAL HISTORY OF 09/07/2020 Laparoscopic cholecystectomy with intraoperative cholangiograms. Dr. Ragsdale Current Outpatient Medications Medication Sig benzonatate (TESSALON PERLES) 100 mg capsule Take 1 capsule by mouth three times daily as needed for cough. promethazine (PHENERGAN) 6.25 mg/5 mL syrup Take 5-10ml by mouth 4 times daily as needed for cough Cholecalciferol, Vitamin D3, 50 mcg (2,000 unit) cap Take 2 capsules by mouth once daily. levothyroxine (LEVOXYL) 88 mcg tablet Take 1 tablet by mouth once daily. Take on empty stomach. ForThyroid omeprazole (PRILOSEC) 40 mg capsule Take 1 capsule by mouth once daily. losartan (COZAAR) 50 mg tablet Take 1 tablet by mouth once daily. rosuvastatin (CRESTOR) 5 mg tablet Take 1 tablet by mouth once daily. (Patient not taking: Reportedon 03/10/2022) OREGANO OIL ORAL Take by mouth once daily. metoprolol succinate ER (TOPROL XL) 25 mg 24 hr tablet Take 1 tablet by mouth once daily. L. acidophilus/L. rhamnosus (FLORAJEN WOMEN ORAL) Take by mouth once daily. ondansetron (ZOFRAN) 4 mg tablet Take 1 tablet by mouth once daily as needed (for nausea.). ZINC ORAL Take by mouth as needed. furosemide (LASIX) 20 mg tablet Take 1 tablet by mouth once daily as needed. (Patient taking differently: Take 20 mg by mouth as needed.) aspirin, enteric coated (ECOTRIN LOW STRENGTH) 81 mg EC tablet Take 1 tablet by mouth once daily. Current Facility-Administered Medications Medication Dose Route Frequency perflutren lipid microspheres 1.3 mL in NaCl (PF) 0.9% 10 mL injection (DEFINITY) INTRAVENOUS DIRECTED PRN sodium chloride 0.9 % (flush) 10 mL (BD POSIFLUSH) 10 mL INTRAVENOUS DIRECTED PRN perflutren lipid microspheres 1.3 mL in NaCl (PF) 0.9% 10 mL injection (DEFINITY) INTRAVENOUS DIRECTED PRN sodium chloride 0.9 % (flush) 10 mL (BD POSIFLUSH) 10 mL INTRAVENOUS DIRECTED PRN ALLERGIES Allergen Reactions Emilio Inhibitors Other: See Comments Short of breath, symptoms of heart failure Beta-Blockers (Beta* Other: See Comments Short of breath, symptoms of heart failure Augmentin [Amoxicil* GI Upset Codeine Mental Status Change Patient felt like she was made out of lead Lipitor [Atorvastat* Myalgia Muscle aches Sulfa (Sulfonamide * Other: See Comments Amlodipine Other: See Comments lightheaded Social History Tobacco Use Smoking status: Former Types: Cigarettes Quit date: 10/22/2002 Years since quittin.5 Smokeless tobacco: Never Vaping Use Vaping Use: Never used Substance Use Topics Alcohol use: No Drug use: No ROS: See HPI PE: There were no vitals taken for this visit. Gen: A&OX3, NAD, non-toxic appearing HEENT: PERRLA, EOMs intact b/l, nares without drainage, pharynx without erythema, exudate, lesions,or drainage. Uvula midline. Neck: No LAD, no thyromegaly, no meningismus. Trapezius muscle tension and spasm present right >left Right rib 6-7 inhalation dysfunction [id number] Skin: No rashes, lesions, or wounds on exposed skin. ASSESSMENT/PLAN: 1. Rib pain on right side - ICD9: 786.50, ICD10: R07.81 (primary diagnosis) No signs of fracture or severe pain, supportive care with use of topical muscle rubs, rest, heatingpad and OMT today, f/u in 2-3 weeks in office OMT: Discussed risks, benefits, alternatives, and potential SEs of treatment. Patient wished to proceed with OMT. OMT was performed to the cervical region, thoracic region, and ribs including soft tissue, functional method. Patient tolerated treatment well with good release, increase ROM, and decrease in pain, without complications. Instructed patient to drink plenty of water. Gentle stretches athome. 2. Somatic dysfunction of spine, cervical - ICD9: 739.1, ICD10: M99.01 No signs of fracture or severe pain, supportive care with use of topical muscle rubs, rest, heatingpad and OMT today, f/u in 2-3 weeks in office OMT: Discussed risks, benefits, alternatives, and potential SEs of treatment. Patient wished to proceed with OMT. OMT was performed to the cervical region, thoracic region, and ribs including soft tissue, functional method. Patient tolerated treatment well with good release, increase ROM, and decrease in pain, without complications. Instructed patient to drink plenty of water. Gentle stretches athome. 3. Somatic dysfunction of rib - ICD9: 739.8, ICD10: M99.08 No signs of fracture or severe pain, supportive care with use of topical muscle rubs, rest, heatingpad and OMT today, f/u in 2-3 weeks in office OMT: Discussed risks, benefits, alternatives, and potential SEs of treatment. Patient wished to proceed with OMT. OMT was performed to the cervical region, thoracic region, and ribs including soft tissue, functional method. Patient tolerated treatment well with good release, increase ROM, and decrease in pain, without complications. Instructed patient to drink plenty of water. Gentle stretches athome. 4. Somatic dysfunction of spine, thoracic - ICD9: 739.2, ICD10: M99.02 No signs of fracture or severe pain, supportive care with use of topical muscle rubs, rest, heatingpad and OMT today, f/u in 2-3 weeks in office OMT: Discussed risks, benefits, alternatives, and potential SEs of treatment. Patient wished to proceed with OMT. OMT was performed to the cervical region, thoracic region, and ribs including soft tissue, functional method. Patient tolerated treatment well with good release, increase ROM, and decrease in pain, without complications. Instructed patient to drink plenty of water. Gentle stretches athome. Mandeep Houser DO Return if no improvement. Follow up with Mandeep Houser DO. To ER if develops chest pain, shortness of breath Discussed risks, benefits, alternatives, and potential side effects of medications. Patient/Guardian expressed understanding and agreed with the plan. See patient instructions. Mandeep Houser DO [address] [place] [address] documented in this encounterK[facility]12-21-2022 Miscellaneous Notes* Telephone Encounter - Mandeep Houser DO - 05/03/2022 12:32 PM EST Patient is being seen at 1240 pm Mandeep Houser DO * Telephone Encounter - Sincere Vizcaino RN - 05/03/2022 11:53 AM EST Pt called in asking if provider was able to add her on to schedule today. Please call with any availability. * Telephone Encounter - Vinita Wells - 05/03/2022 8:51 AM EST Patient is calling stating she has a rib out and is requesting appt with PCP as she was advised to call and let provider know when this happens and she would work her into her schedule . Please advise the patient. documented in this encounterK[facility]11-23-2022 History of Present illness Narrative* Enmanuel Sahu - 04/05/2022 11:02 AM EST POPULATION HEALTH NAVIGATION OUTREACH Action/I RP Outreach: Contacted patient to schedule ROBEL Consult for Chronic pain of right ankle [M25.571, G89.29] and patient requested to call back [phone]. Any agent can assist. Pt identified by name and : YES, via [employer] Outreach Outcome/Action Spoke to patient or caregiver: Patient will return the call or ask for return call Did you use a PCP flex slot to schedule this appointment? No Reason for Outreach Care Gap or Scheduling/Wellness visits Payer: Payor: MEDICARE / Plan: MEDICARE A AND B / Product Type: Medicare / Care Gap Reviewed:: ORQ Reminder: Reminder note to check Health Maintenance for items below Health Maintenance items due: HEPATITIS C SCREENING Never done DTAP,TDAP,TD(1 - Tdap) Never done SHINGRIX VACCINE(1 of 2) Never done BONE DENSITY Never done ADVANCE DIRECTIVE DISCUSSION Never done DEPRESSION ASSESSMENT Never done PNEUMOCOCCAL: 66+(2 - PCV) due on 12/29/2021 Message Sent to Practice: No Navigation Signature: Enmanuel Sahu April 05, 2022 11:03 AM documented in this encounterK[facility]11-18-2022 History of Present illness Narrative* Santisujit Sahu - 03/31/2022 2:07 PM EST POPULATION HEALTH NAVIGATION OUTREACH Action/I RP Outreach: LVM for Patient to call back and schedule ROBEL Consult for Chronic pain of right ankle [M25.571, G89.29]. [phone]. Any agent can assist. Pt identified by name and : YES, via [employer] Outreach Outcome/Action Unable to reach patient: Left message Did you use a PCP flex slot to schedule this appointment? No Reason for Outreach Care Gap or Scheduling/Wellness visits Payer: Payor: MEDICARE / Plan: MEDICARE A AND B / Product Type: Medicare / Care Gap Reviewed:: ORQ Reminder: Reminder note to check Health Maintenance for items below Health Maintenance items due: HEPATITIS C SCREENING Never done DTAP,TDAP,TD(1 - Tdap) Never done SHINGRIX VACCINE(1 of 2) Never done BONE DENSITY Never done ADVANCE DIRECTIVE DISCUSSION Never done DEPRESSION ASSESSMENT Never done PNEUMOCOCCAL: 66+(2 - PCV) due on 12/29/2021 Message Sent to Practice: No Navigation Signature: Enmanuel Sahu March 31, 2022 2:07 PM documented in this encounterKettering [facility]10-31-2022 Miscellaneous Notes* Telephone Encounter - Kelsey Costa LPN - 03/13/2022 9:59 AM EDT Pt. informed, * Telephone Encounter - Alejandrina Harvey APRN.CNP - 03/13/2022 7:45 AM EDT Please let Sandra know that her COVID and flu tests are negative. Alejandrina Harvey APRN.CNP documented in this encounterKet[facility]10-28-2022 Miscellaneous Notes* Telephone Encounter - Griselda Harris Ma - 03/10/2022 11:08 AM EDT Faxed 03/10/2022 BRANDI Harris Ma * Telephone Encounter - Alejandrina Harvey APRN.CNP - 03/10/2022 10:14 AM EDT Please fax podiatry consult to Dr. Contreras's office. Alejandrina Harvey APRN.CNP documented in this encounterKettering [facility]10-03-2022 History of Present illness Narrative* Santo Oneill MD - 02/13/2022 12:21 PM EDT Images from the original note were not included. Santo Oneill MD Interventional Cardiology [address] [place] [address] Chief Complaint Patient presents with: Follow Up HISTORY OF PRESENT ILLNESS: Ms. Schmitz is a 76 year old female seen in my office today for assessment management of cardiomyopathy ejection fraction of 35% by cardiac catheterization moderate disease in the LAD and the diagonal Medical therapy is recommended Patient still short of breath with exertion Denies any denies any swelling in both legs Left and right heart cath suggest medical therapy No angina Cardiac Risk Factors age (male over 45, female over 55), hyperlipidemia, obesity, hypertension, family history of CAD PAST MEDICAL HISTORY Diagnosis Date Acute acalculous cholecystitis 05/30/2020 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 09/22/2020 Acute on chronic systolic CHF (congestive heart failure) ([facility]) 05/03/2020 Aspiration pneumonia ([facility]) 05/30/2020 Chest pain 05/03/2020 Chest pressure 01/23/2013 Chronic diastolic congestive heart failure (HCC) 02/14/2021 Clostridium difficile diarrhea 09/28/2020 Complete uterovaginal prolapse Cystocele, midline Essential hypertension 06/14/2020 Homozygous Factor V Leiden mutation (HCC) 05/03/2020 Hypothyroidism IBS (irritable bowel syndrome) 01/23/2013 Palpitation CHRONIC Post-operative state 05/24/2020 Rectocele 05/25/2020 Shortness of breath 05/03/2020 Status post laparoscopic hysterectomy 05/30/2020 Tubular adenoma of colon 12/09/2020 Uterine prolapse 05/03/2020 PAST SURGICAL HISTORY Procedure Laterality Date COLONOSCOPY 01/07/2015 COLONOSCOPY 12/05/2021 repeat in 5 years COLONOSCOPY GEN ANES 12/06/2009 X3 LAST ONE IN 2009 EGD 11/08/2012 EGD 12/05/2021 PAST SURGICAL HISTORY OF 05/14/1999 left foot bunionectomy w/screws PAST SURGICAL HISTORY OF 05/14/1981 ectopic w/tube removal PAST SURGICAL HISTORY OF 2009 CYST REMOVED FROM UTERUS PAST SURGICAL HISTORY OF 05/24/2020 TVH, partial colpectomy, anterior colporrhaphy, Dennis transobturator midurethral sling, cystourethroscopy, rectocele repair with perineorrhaphy, laparoscopic lysis of adhesions and excision of bilateral adnexal structures PAST SURGICAL HISTORY OF 09/07/2020 Laparoscopic cholecystectomy with intraoperative cholangiograms. Dr. Ragsdale FAMILY HISTORY Problem Relation Age of Onset Blood Disease Mother Coronary Artery Disease Mother Cancer Mother lung Blood Disease Father Coronary Artery Disease Father Heart Father pacemaker Diabetes Father Breast Cancer Sister younger sis. COPD Brother Hypertension Brother Heart disease Brother Coronary Artery Disease Maternal Grandmother Ischemic Heart Disease Maternal Grandfather Coronary Artery Disease Maternal Grandfather Coronary Artery Disease Daughter Social History Tobacco Use Smoking status: Former Types: Cigarettes Quit date: 10/22/2002 Years since quittin.3 Smokeless tobacco: Never Vaping Use Vaping Use: Never used Substance Use Topics Alcohol use: No Drug use: No ALLERGIES Allergen Reactions Emilio Inhibitors Other: See Comments Short of breath, symptoms of heart failure Beta-Blockers (Beta* Other: See Comments Short of breath, symptoms of heart failure Augmentin [Amoxicil* GI Upset Codeine Mental Status Change Patient felt like she was made out of lead Lipitor [Atorvastat* Myalgia Muscle aches Sulfa (Sulfonamide * Other: See Comments Amlodipine Other: See Comments lightheaded Medications: Current Outpatient Medications Medication Sig Dispense Refill Cholecalciferol, Vitamin D3, 50 mcg (2,000 unit) cap Take 2 capsules by mouth once daily. levothyroxine (LEVOXYL) 88 mcg tablet Take 1 tablet by mouth once daily. Take on empty stomach. ForThyroid 90 tablet 1 omeprazole (PRILOSEC) 40 mg capsule Take 1 capsule by mouth once daily. 30 capsule 2 losartan (COZAAR) 50 mg tablet Take 1 tablet by mouth once daily. 90 tablet 3 OREGANO OIL ORAL Take by mouth once daily. metoprolol succinate ER (TOPROL XL) 25 mg 24 hr tablet Take 1 tablet by mouth once daily. 90 [id number] L. acidophilus/L. rhamnosus (FLORAJEN WOMEN ORAL) Take by mouth once daily. ondansetron (ZOFRAN) 4 mg tablet Take 1 tablet by mouth once daily as needed (for nausea.). 30 tablet 0 ZINC ORAL Take by mouth as needed. furosemide (LASIX) 20 mg tablet Take 1 tablet by mouth once daily as needed. (Patient taking differently: Take 20 mg by mouth as needed.) 90 tablet 3 aspirin, enteric coated (ECOTRIN LOW STRENGTH) 81 mg EC tablet Take 1 tablet by mouth once daily. 0 rosuvastatin (CRESTOR) 5 mg tablet Take 1 tablet by mouth once daily. 30 tablet 0 Current Facility-Administered Medications Medication Dose Route Frequency Provider Last Rate Last Admin perflutren lipid microspheres 1.3 mL in NaCl (PF) 0.9% 10 mL injection (DEFINITY) INTRAVENOUS DIRECTED QUINTIN Oneill MD sodium chloride 0.9 % (flush) 10 mL (BD POSIFLUSH) 10 mL INTRAVENOUS DIRECTED QUINTIN Oneill MD perflutren lipid microspheres 1.3 mL in NaCl (PF) 0.9% 10 mL injection (DEFINITY) INTRAVENOUS DIRECTED QUINTIN Oneill MD sodium chloride 0.9 % (flush) 10 mL (BD POSIFLUSH) 10 mL INTRAVENOUS DIRECTED QUINTIN Oneill MD perflutren lipid microspheres 1.3 mL in NaCl (PF) 0.9% 10 mL injection (DEFINITY) INTRAVENOUS DIRECTED QUINTIN Oneill MD sodium chloride 0.9 % (flush) 10 mL (BD POSIFLUSH) 10 mL INTRAVENOUS DIRECTED QUINTIN Oneill MD Review of Systems Constitutional: Negative for chills, diaphoresis, fever, malaise/fatigue and weight loss. HENT: Negative for congestion, ear discharge, ear pain, hearing loss, nosebleeds, sinus pain, sore throat and tinnitus. Eyes: Negative for blurred vision, double vision, photophobia, pain, discharge and redness. Respiratory: Positive for shortness of breath. Negative for cough, hemoptysis, sputum production, wheezing and stridor. Cardiovascular: Negative for chest pain, palpitations, orthopnea, claudication, leg swelling and PND. Gastrointestinal: Negative for abdominal pain, blood in stool, constipation, diarrhea, heartburn, melena, nausea and vomiting. Genitourinary: Negative for dysuria, flank pain, frequency, hematuria and urgency. Musculoskeletal: Negative for back pain, falls, joint pain, myalgias and neck pain. Skin: Negative for itching and rash. Neurological: Negative for dizziness, tingling, tremors, sensory change, speech change, focal weakness, seizures, loss of consciousness, weakness and headaches. Endo/Heme/Allergies: Negative for environmental allergies and polydipsia. Does not bruise/bleed easily. Psychiatric/Behavioral: Negative for depression, hallucinations, memory loss, substance abuse and suicidal ideas. The patient is not nervous/anxious and does not have insomnia. Physical Examination: Vitals:BP 136/84 Pulse 80 Ht 5' 4 (1.63m) Wt 196 lb 6.4 oz (89.1kg) BMI 33.70 kg/(m^2). BP w/Orthostatic Vitals Date and Time Orthostatic BP Orthostatic Pulse BP Pulse BP Position BP Site BP Cuff Size 02/13/22 1107 -- -- 136/84 80 -- -- -- Last 2 Encounter Wt Readings: Date: Wt: 02/13/2022 89.1 kg (196 lb 6.4 oz) 01/20/2022 87.9 kg (193 lb 12.8 oz) Physical Exam Constitutional: General: She is not in acute distress. Appearance: She is not diaphoretic. HENT: Head: Normocephalic and atraumatic. Right Ear: External ear normal. Left Ear: External ear normal. Nose: Nose normal. Mouth/Throat: Pharynx: Oropharynx is clear. Eyes: General: Right eye: No discharge. Left eye: No discharge. Conjunctiva/sclera: Conjunctivae normal. Pupils: Pupils are equal, round, and reactive to light. Cardiovascular: Rate and Rhythm: Normal rate and regular rhythm. Heart sounds: Normal heart sounds, S1 normal and S2 normal. No murmur heard. No friction rub. No gallop. No S3 or S4 sounds. Pulmonary: Effort: Pulmonary effort is normal. No respiratory distress. Breath sounds: Normal breath sounds. No wheezing or rales. Chest: Chest wall: No tenderness. Musculoskeletal: General: Normal range of motion. Cervical back: Normal range of motion and neck supple. Skin: General: Skin is warm and dry. Neurological: Mental Status: She is alert and oriented to person, place, and time. Psychiatric: Mood and Affect: Mood normal. Thought Content: Thought content normal. Judgment: Judgment normal. Pertinent Labs: CBC: Hemoglobin (g/dL) Date Value 01/12/2022 13.4 12/22/2020 13.4 Hematocrit (%) Date Value 01/12/2022 43.4 12/22/2020 43.4 WBC (k/uL) Date Value 01/12/2022 8.02 12/22/2020 7.77 Platelet Count (k/uL) Date Value 01/12/2022 340 12/22/2020 368 BMP: Glucose (mg/dL) Date Value 01/12/2022 92 01/31/2021 96 Potassium (mmol/L) Date Value 01/12/2022 4.2 01/31/2021 4.3 Sodium (mmol/L) Date Value 01/12/2022 139 01/31/2021 139 Chloride (mmol/L) Date Value 01/12/2022 104 01/31/2021 101 CO2 (mmol/L) Date Value 01/12/2022 24 01/31/2021 23 Creatinine (mg/dL) Date Value 01/12/2022 0.72 01/31/2021 0.78 BUN (mg/dL) Date Value 01/12/2022 22 01/31/2021 19 Anion Gap (mmol/L) Date Value 01/12/2022 11 01/31/2021 15 Calcium (mg/dL) Date Value 01/31/2021 10.0 Calcium, Total (mg/dL) Date Value 01/12/2022 9.7 INR: Lipid Profile: Cholesterol, Total Date Value Ref Range Status 01/12/2022 218 (H) <200 mg/dL Final Comment: <200 mg/dL, Desirable 200-239 mg/dL, Borderline high >239 mg/dL, High HDL Cholesterol Date Value Ref Range Status 01/12/2022 50 >39 mg/dL Final Comment: 40-59 mg/dL, Acceptable >59 mg/dL, High: Negative risk factor for coronary heart disease <40 mg/dL, Low: Positive risk factor for coronary heart disease LDL Cholesterol Date Value Ref Range Status 01/12/2022 126 (H) <100 mg/dL Final Comment: <100 mg/dL, Optimal 100-129 mg/dL, Near optimal/above optimal 130-159 mg/dL, Borderline high 160-189 mg/dL, High >189 mg/dL, Very high Secondary prevention optimal LDL Cholesterol levels are recommended to be < 70 mg/dL Triglyceride Date Value Ref Range Status 01/12/2022 208 (H) <150 mg/dL Final Comment: <150 mg/dL, Normal 150-199 mg/dL, Borderline high 200-499 mg/dL, High >499 mg/dL, Very high Hemoglobin A1C: No results found for: HGBA1C TSH: No results found for: TSHREFL Prior Cardiac Testing none Assessment and Plan: 76 years old female patient with mild to moderate coronary artery disease and 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 Coronary artery disease Mild to moderate nonobstructive medical therapy Follow up plannin months Electronically signed by Santo Oneill MD on February 13, 2022, 12:21 PM The above note was partially created using a dictation recognition software. A reasonable attempt has been made to correct any errors. documented in this encounterK[facility]22 History of Present illness Narrative* Alejandrina Harvey, MELI.DIRECTOR OF DONOR RELATIONS - 01/20/2022 10:51 AM EDT Chief Complaint Patient presents with: Follow Up: Review lab work HPI Sandra Schmitz is a 76 year old female who presents here today for Above Complaints. Today: Would like to review her lab results today. Knows that her cholesterol still elevated, but has not tolerated Lipitor or Crestor. She is awaiting a call back from her press operator assistant in regards to possibly starting a new medication. Denies any concerns or complaints. Past medical history, appointments, medications, allergies reviewed. Previous Medical History PAST MEDICAL HISTORY Diagnosis Date Acute acalculous cholecystitis 05/30/2020 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 09/22/2020 Acute on chronic systolic CHF (congestive heart failure) (HCC) 05/03/2020 Aspiration pneumonia (HCC) 05/30/2020 Chest pain 05/03/2020 Chest pressure 01/23/2013 Chronic diastolic congestive heart failure (HCC) 02/14/2021 Clostridium difficile diarrhea 09/28/2020 Complete uterovaginal prolapse Cystocele, midline Essential hypertension 06/14/2020 Homozygous Factor V Leiden mutation (HCC) 05/03/2020 Hypothyroidism IBS (irritable bowel syndrome) 01/23/2013 Palpitation CHRONIC Post-operative state 05/24/2020 Rectocele 05/25/2020 Shortness of breath 05/03/2020 Status post laparoscopic hysterectomy 05/30/2020 Tubular adenoma of colon 12/09/2020 Uterine prolapse 05/03/2020 Previous Surgical History PAST SURGICAL HISTORY Procedure Laterality Date COLONOSCOPY 01/07/2015 COLONOSCOPY 12/05/2021 repeat in 5 years COLONOSCOPY GEN ANES 12/06/2009 X3 LAST ONE IN 2009 EGD 11/08/2012 EGD 12/05/2021 PAST SURGICAL HISTORY OF 05/14/1999 left foot bunionectomy w/screws PAST SURGICAL HISTORY OF 05/14/1981 ectopic w/tube removal PAST SURGICAL HISTORY OF 2009 CYST REMOVED FROM UTERUS PAST SURGICAL HISTORY OF 05/24/2020 TVH, partial colpectomy, anterior colporrhaphy, Dennis transobturator midurethral sling, cystourethroscopy, rectocele repair with perineorrhaphy, laparoscopic lysis of adhesions and excision of bilateral adnexal structures PAST SURGICAL HISTORY OF 09/07/2020 Laparoscopic cholecystectomy with intraoperative cholangiograms. Dr. Ragsdale Family History FAMILY HISTORY Problem Relation Age of Onset Blood Disease Mother Coronary Artery Disease Mother Cancer Mother lung Blood Disease Father Coronary Artery Disease Father Heart Father pacemaker Diabetes Father Breast Cancer Sister younger sis. COPD Brother Hypertension Brother Heart disease Brother Coronary Artery Disease Maternal Grandmother Ischemic Heart Disease Maternal Grandfather Coronary Artery Disease Maternal Grandfather Coronary Artery Disease Daughter Patient Allergies ALLERGIES Allergen Reactions Emilio Inhibitors Other: See Comments Short of breath, symptoms of heart failure Beta-Blockers (Beta* Other: See Comments Short of breath, symptoms of heart failure Augmentin [Amoxicil* GI Upset Codeine Mental Status Change Patient felt like she was made out of lead Lipitor [Atorvastat* Myalgia Muscle aches Sulfa (Sulfonamide * Other: See Comments Amlodipine Other: See Comments lightheaded Current Medications Current Outpatient Medications on File Prior to Visit Medication Sig levothyroxine (LEVOXYL) 88 mcg tablet Take 1 tablet by mouth once daily. Take on empty stomach. ForThyroid losartan (COZAAR) 50 mg tablet Take 1 tablet by mouth once daily. OREGANO OIL ORAL Take by mouth once daily. metoprolol succinate ER (TOPROL XL) 25 mg 24 hr tablet Take 1 tablet by mouth once daily. cholecalciferol (VITAMIN D3) 1,000 unit tab tablet Take 4 Units by mouth q 24 HR. L. acidophilus/L. rhamnosus (FLORAJEN WOMEN ORAL) Take by mouth once daily. ondansetron (ZOFRAN) 4 mg tablet Take 1 tablet by mouth once daily as needed (for nausea.). ZINC ORAL Take by mouth as needed. furosemide (LASIX) 20 mg tablet Take 1 tablet by mouth once daily as needed. (Patient taking differently: Take 20 mg by mouth as needed.) aspirin, enteric coated (ECOTRIN LOW STRENGTH) 81 mg EC tablet Take 1 tablet by mouth once daily. omeprazole (PRILOSEC) 40 mg capsule Take 1 capsule by mouth once daily. rosuvastatin (CRESTOR) 5 mg tablet Take 1 tablet by mouth once daily. Current Facility-Administered Medications on File Prior to Visit Medication perflutren lipid microspheres 1.3 mL in NaCl (PF) 0.9% 10 mL injection (DEFINITY) sodium chloride 0.9 % (flush) 10 mL (BD POSIFLUSH) perflutren lipid microspheres 1.3 mL in NaCl (PF) 0.9% 10 mL injection (DEFINITY) sodium chloride 0.9 % (flush) 10 mL (BD POSIFLUSH) Social History Social History Tobacco Use Smoking status: Former Types: Cigarettes Quit date: 10/22/2002 Years since quittin.2 Smokeless tobacco: Never Vaping Use Vaping Use: Never used Substance Use Topics Alcohol use: No Drug use: No Review of Symptoms REVIEW OF SYSTEMS See HPI, otherwise negative EXAM: BP 124/78 (BP Site: Left Arm, BP Position: Sitting, BP Cuff Size: Regular Adult) Pulse 79 Wt 87.9 kg (193 lb 12.8 oz) SpO2 95% BMI 34.33 kg/m General Appearance: Well appearing, alert, in no acute distress, well-hydrated, well nourished.. Lungs: Lungs clear to auscultation. No wheezing, rhonchi, rales.. Heart: RRR without murmur, gallop, or rubs. No ectopy. The 10-year ASCVD risk score (Angelica FRIEDMAN, et al., 2019) is: 20% Values used to calculate the score: Age: 76 years Sex: Female Is Non- : No Diabetic: No Tobacco smoker: No Systolic Blood Pressure: 124 mmHg Is BP treated: Yes HDL Cholesterol: 50 mg/dL Total Cholesterol: 218 mg/dL Health Maintenance List HEPATITIS C SCREENING Never done DTAP,TDAP,TD(1 - Tdap) Never done SHINGRIX VACCINE(1 of 2) Never done BONE DENSITY Never done ADVANCE DIRECTIVE DISCUSSION Never done DEPRESSION SCREENING due on 12/09/2021 PNEUMOCOCCAL: 65+(2 - PCV) due on 12/29/2021 ANNUAL PCP TEAM CHRONIC DISEASE VISIT due on 10/19/2022 BP CONTROLLED (<130/80) due on 12/19/2022 LDL CHOLESTEROL due on 01/12/2023 DIABETES SCREEN due on 01/12/2025 COLORECTAL CANCER SCREENING due on 12/05/2026 LIPID SCREEN due on 01/12/2027 INFLUENZA Discontinued COVID-19 VACCINE Discontinued Data reviewed Previous records, office notes ASSESSMENT/PLAN: 1. Routine physical examination - ICD9: V70.0, ICD10: Z00.00 (primary diagnosis) - Counseled on healthy diet and regular exercise - Calcium intake with supplements or by diet of 1000 mg/day for under 50, 1200- 1500 mg/day for 50+ Follow up in 6 months for 6 month review. 2. Primary hypertension - ICD9: 401.9, ICD10: I10 - good control - Continue current medication(s) - Recommended regular aerobic exercise. - Recommend home blood pressure monitoring, to bring results in on next visit - Goal of BP <130/80 3. Mixed hyperlipidemia - ICD9: 272.2, ICD10: E78.2 Continue to follow with cardiology. 4. Coronary artery disease involving [place] coronary artery of [place] heart with other form of angina pectoris (HCC) - ICD9: 414.01, 413.9, ICD10: I25.118 Continue to follow with cardiology. 5. Vitamin D deficiency - ICD9: 268.9, ICD10: E55.9 Continue medication. - CHOLECALCIFEROL (VITAMIN D3) 50 MCG (2,000 UNIT) CAPSULE 6. Hypothyroidism, unspecified type - ICD9: 244.9, ICD10: E03.9 - Instructed patient on importance of taking on an empty stomach either first thing in the morning or at bedtime. Stable - LEVOTHYROXINE 88 MCG TABLET Alejandrina Harvey APRN.TIM documented in this encounterK[facility]09-06-2022 Miscellaneous Notes* Telephone Encounter - Leyla Ferreira RN - 01/17/2022 3:14 PM EDT Patient returned phone call and was notified of provider's message below. She verbalized understanding. Reports she cannot tolerate Lipitor or Crestor as she has tried both. * Telephone Encounter - Rula Lopez RN - 01/13/2022 3:02 PM EDT Left message for pt to return call. Rula Lopez RN * Telephone Encounter - Rula Lopez RN - 01/13/2022 3:02 PM EDT ----- Message from Estelita Culp APRN.TIM sent at 01/13/2022 2:09 AM EDT ----- Please call patient and notify her of results. Kidney function, electrolytes and liver function arestable. Cholesterol is elevated. Is she able to tolerate/taking 5 mg of Crestor? Thank you, Saqib. MELI Culp.DIRECTOR OF DONOR RELATIONS documented in this encounterKettering [facility]08-16-2022 Miscellaneous Notes* Telephone Encounter - Anni Herrera LPN - 12/27/2021 10:43 AM EDT Pt calling to see if she needs thyroid lab work done. Pt states she will need a refill on Levothyroxine . Please review. Patient has been identified by name and date of : Yes Patient phones for refill(s): Requested Prescriptions Pending Prescriptions Disp Refills levothyroxine (LEVOXYL) 88 mcg tablet 30 tablet 3 Sig: Take 1 tablet by mouth once daily. Take on empty stomach. For Thyroid Date of last office visit in primary care: 10/19/21 next apt 01/02/22 Last 2 Encounter Wt Readings: Date: Wt: 11/02/2021 86.6 kg (191 lb) 10/24/2021 86.2 kg (190 lb) Previous labs/tests for medication: Thyroid: TSH Date Value 10/19/2021 1.290 mIU/L 12/22/2020 3.190 uU/mL Please advise. Thank you. Anni Herrera LPN documented in this encounterKettering [facility]08-08-2022 Instructions* Patient Instructions* Sincere Perkins PA-C - 12/19/2021 9:33 AM EDT The following instructions are important for you related to your office visit today with the [facility]. -Continue omeprazole for 1-2 months INSTRUCTIONS FOLLOWING A NORMAL COLONOSCOPY WITH HISTORY OF POLYPS I recommend you undergo repeat endoscopy in 5 years based on prior history of polyps. If you note bleeding, change in bowel habits, or other suspicious colon related symptoms before that time, those symptoms should be evaluated as necessary. If you have any difficulties or concerns, you should contact our office immediately. INSTRUCTIONS FOR PEPTIC ULCER DISEASE - ESOPHAGITIS I discussed with you the findings of your upper endoscopy. Your upper endoscopy demonstrated esophagitis Esophagitis may be a form of peptic irritation, with acid moving from the stomach to the esophagus (gastroesophageal reflux) Factors that increase acid production include smoking and stress. If you smoke, stopping smoking will often cure these issues without needing other medications. Over the counter medications including antiacids and acid reducing medications including H2 blockers (Zantac and the like) and proton pump inhibitors (prilosec, prevacid and the like) neutralize or prevent acid production. Prescription strength proton pump inhibitors (PPIs) may be necessary if your symptoms persist. Carafate may be added to PPI treatment in refractory cases. Avoiding smoking, alcohol and antiinflammatory medications are important in the successful treatment of reflux esophagitis and peptic diseases. Other factors that contribute to GERD and esophagitis are being overweight, eating large meals before laying down and certain foods. Weight loss will help improve many GERD complaints. Remaining upright after eating large meals and having a small supper will also help symptoms. Avoiding food that contribute to reflux - chocolate, caffeine, cheddar cheese may also help. Follow up upper endoscopy may be recommended to assure healing of the esophagus. New or worsening symptoms such are epigastric pain, burning, difficulty swallowing or food stickingshould be relayed to your physician. Feeling full early after eating, or black, tarry, foul smelling stools are also worrisome. If you have any difficulties or concerns, you should contact our office immediately. If you note any additional difficulties, questions, or concerns, you should contact our office immediately @ [phone] and ask to be transferred to the General Surgery department. documented in this encounterK[facility]08-08-2022 History of Present illness Narrative* Sincere Perkins PA-C - 12/19/2021 9:15 AM EDT FOLLOW UP VISIT - ENDOSCOPY NAME: Sandra Ricardo [facility] NO.: [id number] DATE OF SERVICE: 12/19/2021 : 1945 REFERRING PHYSICIAN: Mandeep Houser DO Sandra is a patient I am following with Dr. Marshall for history of colon polyps as well as upper GI complaints. Dr. Marshall performed upper and lower endoscopy on 12/05/21 at [facility]. The patient was found to have gastritis and shallow ulcerations on upper endoscopy. Colonoscopy was normal in appearance with random biopsies taken. Pathology demonstrated: FINAL DIAGNOSIS A. Jejunum, biopsy: - Small bowel mucosa with no diagnostic alteration. - No evidence of celiac sprue. B. Stomach, biopsy: - Antral mucosa with foveolar hyperplasia and features of erosion. - No evidence of H. pylori. C. Distal esophagus, biopsy: - Mildly hyperplastic squamous mucosa. - No evidence of intestinal metaplasia or dysplasia. D. Mid esophagus, biopsy: - Squamous mucosa with no diagnostic alteration. - No evidence of eosinophilic esophagitis. E. Terminal ileum, biopsy: - Small bowel mucosa with no diagnostic alteration. F. Ascending colon, biopsy: - Colonic mucosa with no diagnostic alteration. - No evidence of lymphocytic or collagenous colitis. G. Descending colon, biopsy: - Colonic mucosa with no diagnostic alteration. - No evidence of lymphocytic or collagenous colitis. The patient states she noted some generalized intense itching following the procedure, denies rash.She had contacted her PCP, notes her Entresto was discontinued and symptoms have since resolved VITALS: Blood pressure 128/70, pulse 76, temperature 36.2 C (97.2 F), SpO2 92 %. General: patient is alert, cooperative, pleasant and in no acute distress On examination, the abdomen is benign. Assessment IMPRESSION: gastritis, normal colonoscopy with history of colon polyps PLAN: The operative findings and pathology report were reviewed with the patient, and the patient has hadthe opportunity to ask questions and have questions answered. Reviewed dietary and lifestyle modifications for GERD and gastritis. Recommend continuing omeprazole for the next 1-2 months. If the patient notes any problems or changes in bowel function, the patient should contact me immediately. Other benedict I recommend follow up endoscopy in 5 years for surveillance due to history of colon polyps. HMupdated and recall letter generated. Patient verbalized understanding of all above and agreed with the plan Diagnoses: (K57.90) Diverticulosis (primary encounter diagnosis) (Z86.19) History of Clostridium difficile colitis (R14.0) Abdominal bloating I spent a total of 24 minutes on the date of the service which included preparing to see the patient, icze-ad-ycid patient care, completing clinical documentation, obtaining and/or reviewing separately obtained history, counseling and educating the patient/family/caregiver, independently interpretin g results (not separately reported), and communicating results to the patient/family/caregiver. Sincere Perkins PA-C documented in this encounterKettering [facility]07-28-2022 Miscellaneous Notes* Telephone Encounter - Rula Lopez RN - 12/08/2021 11:11 AM EDT Pt. notified. Please send refill for Losartan to [facility]. Thank you. Rula Lopez RN * Telephone Encounter - Rula Lopez RN - 12/08/2021 11:11 AM EDT Images from the original note were not included. Estelita Culp APRN.DIRECTOR OF DONOR RELATIONS You; Santo Oneill MD 12 minutes ago (10:58 AM) Lets go back to her losartan 50 mg if she is not able to tolerate entresto. Thank you! Message text * Telephone Encounter - Rula Lopez RN - 12/08/2021 9:46 AM EDT Called pt to get more detail. States she is itching all over. No rash present. Pt. states she was switched from Losartan to Entresto following her heart cath on 11/10/21. Please advise if alternative medication available as pt is not tolerating Entresto. Thank you. Rula Lopez RN * Telephone Encounter - Mary Lou Cadet - 12/08/2021 9:29 AM EDT Pt reports having some issues with Entresto. She states with the problems she had with it before her colonoscopy but now that she has started it back up after the colonoscopy she is itchy all over. Not taking until she hears back from someone. documented in this encounterKettering [facility]07-25-2022 History and physical note * Wes Marshall MD - 12/05/2021 10:00 AM EDT UPDATED PROCEDURAL SEDATION HISTORY AND PHYSICAL EXAMINATION SERVICE DATE: 12/05/2021 SERVICE TIME: 9:37 AM PHYSICAL EXAM MUST BE COMPLETED ON ADMISSION PROCEDURE: Procedure Indications: The History and Physical (completed in the past 30 days) has been reviewed and the patient has beenexamined. The contents accurately reflect the patient's condition with the following additions or revisions since the H&P was completed. ASA Class: ASA Class:: Patient with severe systemic disease Examination indicates no changes. AIRWAY: Airway Visualization of Uvula: Yes Mouth opening greater than 2 fingerbreadths: Yes Neck Full Range of Motion: Yes LUNGS: Lungs clear to auscultation CARDIAC: Regular rhythm,Regular rate Provisional Diagnosis/Treatment Plan: bloating, belching, irregular bowels - EGD and Colonoscopy SEDATION GOAL: Moderate This H&P can be found in the attached. SIGNATURE: Wes Marshall MD PATIENT NAME: Sandra Schmitz DATE: December 05, 2021 TIME: 9:37 AM * Wes Marshall MD - 12/05/2021 10:00 AM EDT Images from the original note were not included. HISTORY AND PHYSICAL Sandra Schmitz 1945 REFERRING PHYSICIAN: Mandeep Houser DO CHIEF COMPLAINT: Consult (colonoscopy) HPI: The patient is a 76 year old female referred for endoscopy. Patient was previously evaluated by Laverne Merrill CNP in gastroenterology on 01/06/21. Patient was noted at that time to be overdue for 5-year surveillance colonoscopy for personal history of adenomatous colon polyps, and additionally had noted some complaints of rectal bleeding at that time. Sandra had been scheduled to have a colonoscopy performed by Dr. Marshall in [place] for 04/04/21, however procedure was cancelled. Patient notes she had some confusion as to why she was unable to have the procedure at that time. Review of [facility] note from 03/28/21 shows that although cardiac clearance had been received on 02/22/21, there were anesthesia concerns as last cardiac office visit had also recommended a cardiac cath which had not been scheduled at that time and last EF 35%. In the interim [atient has noted various abdominal complaints including upper abdominal discomfort,bloating, gas. She also had an episode of lower abdominal pain recently which was felt to possibly be diverticulitis, but CT scan 10/27/21 showed no acute abdominal findings. Patient had recent follow-up in primary care and was scheduled to see cardiology for clearance for colonoscopy. Cardiology notes from 10/24/21 state: Cardiac Clearance Patient is in need of colonoscopy. May proceed. Patient is at moderate risk given systolic HF and need for ischemic evaluation. If elective consider waiting until after LHC, although if PCI is preformed will likely need DAPT for at least 6 months without interruption. Patient is scheduled to undergo cardiac catheterization on 11/10/21. PAST MEDICAL HISTORY PAST MEDICAL HISTORY Diagnosis Date Acute acalculous cholecystitis 05/30/2020 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 09/22/2020 Acute on chronic systolic CHF (congestive heart failure) (HCC) 05/03/2020 Aspiration pneumonia (HCC) 05/30/2020 Chest pain 05/03/2020 Chest pressure 01/23/2013 Chronic diastolic congestive heart failure (HCC) 02/14/2021 Clostridium difficile diarrhea 09/28/2020 Complete uterovaginal prolapse Cystocele, midline Essential hypertension 06/14/2020 Homozygous Factor V Leiden mutation (HCC) 05/03/2020 Hypothyroidism IBS (irritable bowel syndrome) 01/23/2013 Palpitation CHRONIC Post-operative state 05/24/2020 Rectocele 05/25/2020 Shortness of breath 05/03/2020 Status post laparoscopic hysterectomy 05/30/2020 Tubular adenoma of colon 12/09/2020 Uterine prolapse 05/03/2020 PAST SURGICAL HISTORY PAST SURGICAL HISTORY Procedure Laterality Date COLONOSCOPY 01/07/2015 COLONOSCOPY GEN ANES 12/06/2009 X3 LAST ONE IN 2009 EGD 11/08/2012 PAST SURGICAL HISTORY OF 05/14/1999 left foot bunionectomy w/screws PAST SURGICAL HISTORY OF 05/14/1981 ectopic w/tube removal PAST SURGICAL HISTORY OF 2009 CYST REMOVED FROM UTERUS PAST SURGICAL HISTORY OF 05/24/2020 TVH, partial colpectomy, anterior colporrhaphy, Dennis transobturator midurethral sling, cystourethroscopy, rectocele repair with perineorrhaphy, laparoscopic lysis of adhesions and excision of bilateral adnexal structures PAST SURGICAL HISTORY OF 09/07/2020 Laparoscopic cholecystectomy with intraoperative cholangiograms. Dr. Ragsdale CURRENT MEDICATIONS Current Outpatient Medications Medication Sig rosuvastatin (CRESTOR) 5 mg tablet Take 1 tablet by mouth once daily. losartan (COZAAR) 50 mg tablet Take 1 tablet by mouth once daily. levothyroxine (LEVOXYL) 88 mcg tablet Take 1 tablet by mouth once daily. Take on empty stomach. ForThyroid OREGANO OIL ORAL Take by mouth once daily. metoprolol succinate ER (TOPROL XL) 25 mg 24 hr tablet Take 1 tablet by mouth once daily. cholecalciferol (VITAMIN D3) 1,000 unit tab tablet Take 4 Units by mouth q 24 HR. L. acidophilus/L. rhamnosus (FLORAJEN WOMEN ORAL) Take by mouth once daily. ondansetron (ZOFRAN) 4 mg tablet Take 1 tablet by mouth once daily as needed (for nausea.). furosemide (LASIX) 20 mg tablet Take 1 tablet by mouth once daily as needed. (Patient taking differently: Take 20 mg by mouth as needed. ) aspirin, enteric coated (ECOTRIN LOW STRENGTH) 81 mg EC tablet Take 1 tablet by mouth once daily. ZINC ORAL Take by mouth as needed. Current Facility-Administered Medications Medication Dose Route Frequency perflutren lipid microspheres 1.3 mL in NaCl (PF) 0.9% 10 mL injection (DEFINITY) INTRAVENOUS DIRECTED PRN sodium chloride 0.9 % (flush) 10 mL (BD POSIFLUSH) 10 mL INTRAVENOUS DIRECTED PRN perflutren lipid microspheres 1.3 mL in NaCl (PF) 0.9% 10 mL injection (DEFINITY) INTRAVENOUS DIRECTED PRN sodium chloride 0.9 % (flush) 10 mL (BD POSIFLUSH) 10 mL INTRAVENOUS DIRECTED PRN ALLERGIES: Emilio Inhibitors, Beta-Blockers (Beta-Adrenergic Blocking Agts), Augmentin [Amoxicillin-Pot Clavulanate], Codeine, Lipitor [Atorvastatin], Sulfa (Sulfonamide Antibiotics), and Amlodipine PERSONAL HISTORY: SOCIAL HISTORY Social History Tobacco Use Smoking status: Former Smoker Types: Cigarettes Quit date: 10/22/2002 Years since quittin.0 Smokeless tobacco: Never Used Vaping Use Vaping Use: Never used Substance Use Topics Alcohol use: No Drug use: No FAMILY HISTORY: FAMILY HISTORY FAMILY HISTORY Problem Relation Age of Onset Blood Disease Mother Coronary Artery Disease Mother Cancer Mother lung Blood Disease Father Coronary Artery Disease Father Heart Father pacemaker Diabetes Father Breast Cancer Sister younger sis. COPD Brother Hypertension Brother Heart disease Brother Coronary Artery Disease Maternal Grandmother Ischemic Heart Disease Maternal Grandfather Coronary Artery Disease Maternal Grandfather Coronary Artery Disease Daughter REVIEW OF SYMPTOMS: The review of systems data was entered by the nurse and reviewed by me Nursing Notes: Maritza Contreras LPN 11/02/2021 1:34 PM Signed REVIEW OF SYSTEMS: General: The patient denies fatigue, denies weight loss, denies weight gain, denies feeling hot, and denies feelings of cold. Eyes: The patient denies glaucoma, denies eye injury/surgery, wears glasses or contacts. Ear/Nose/Throat: The patient denies allergies, denies hayfever, denies ear infections, and denies bloody noses. Cardiovascular: The patient denies chest pain, denies heart disease, notes high blood pressure,denies cardiac stent, denies prior heart attack, notes irregular heart beat, denies high cholesterol, denies poor circulation, denies heart failure, other cardiac issues, denies claudication, denies cold feet, denies peripheral arterial stent. Respiratory: The patient denies tuberculosis, denies pneumonia, denies frequent cough, denies pulmonary embolism, notes shortness of breath, and denies coughing up blood. Gastrointestinal: The patient denies difficulty swallowing, denies acid reflux, denies ulcers, denies vomiting, denies jaundice/hepatitis, denies gallbladder problems, denies black or tarry stools, denies hemorrhoids, denies bleeding from rectum, notes diverticulitis, denies constipation, notes diarrhea, denies loss of stool control, and denies hernias. Kidney/Bladder: The patient denies kidney stones, denies urine infections, and denies bloody urine. Skin: The patient denies a history of skin cancer, denies bleeding/changing moles, and denies a history of skin rash. Neurologic: The patient denies a history of epilepsy/convulsions, denies headaches, denies head/spinal injuries, and denies stroke/TIA. Psychiatric: The patient denies psychiatric medications, denies depression, and denies voices, denies substance abuse. Endocrine: The patient notes thyroid disorders, denies diabetes, and denies hormonal problems. Hematologic: The patient denies a history of bruising, denies bleeding, and denies anemia, denies blood clots. Infections: The patient notes a history of measles, denies rheumatic fever, and denies sexually transmitted diseases. Musculoskeletal: The patient notes back pain/injury, notes back problems, denies sciatica, notes knee/foot trouble, notes arthritis, or notes gout. When was patient's last Mammogram screening? 2021 Last Colonoscopy: 2020 Maritza Contreras LPN I have confirmed and edited as necessary, the PFSH and ROS obtained by others. Sincere Perkins PA-C PHYSICAL EXAMINATION: General: The patient is 76 year old female, well nourished, well hydrated in no acute distress. Thepatient is oriented to time, place, and person. VITALS: Blood pressure 118/62, pulse 80, temperature 36.3 C (97.3 F), height 162.6 cm (5' 4), weight 86.6 kg (191 lb), SpO2 94 %. Body mass index is 32.79 kg/m . HEENT: Normal cephalic, ataumatic, pupils are equally round, sclera are anicteric, mucous membranesare moist, oropharynx is clear. Neck has no masses, asymmetry or lymphadenopathy. Respiratory: Clear to auscultation and percussion. Normal respiratory excursion and pattern. Cardiac: Examination is regular rate and rhythm. Normal S1/S2 Abdominal exam: Soft, nontender, with no palpable masses. No hepatosplenomegaly. No palpable hernias. Extremities: no clubbing, cyanosis or edema. No adenopathy. LABORATORY VALUES: As Noted RADIOLOGIC STUDIES: As Noted Assessment IMPRESSION: generalized abdominal pain, bloating, belching, history of colon polyps. Multiple medical comorbidities, upcoming cardiac catheterization planned, history of JONES, heart failure PLAN: I have reviewed my findings with the surgeon. Will plan for upper and lower endoscopy after cardiac cath has been completed. We discussed the risks and benefits of the planned endoscopy. I haveinformed the patient that complications can occur including failure to complete the endoscopy and pe rforation. The patient had the opportunity to ask questions concerning the planned endoscopy. My staff has also explained the procedure to the patient in understandable terms and has given the patient printed material concerning the procedure. The patient freely consents to surgery. The patient was offered a surgery/procedure at a [facility] facility. I have counseled the patient regarding the risk of exposure to and/or potential harm posed by the COVID-19 virus with having a surgery/procedure at this time versus the risk of delaying the surgery/procedure. It is not possible to know either the risk of delaying the surgery or procedure or chance of getting an infection with perfect accuracy, but a joint decision was made between the patient and myself to proceed at this time with endoscopy. I plan to use Miralax/Dulcolax bowel preparation We will plan for Monitored Anesthetic Care. Patient will require PACC review prior to procedure Discussed that if patient initiated on anticoagulation following her cardiac procedure, will need to remain on anticoagulation for endoscopy Diagnoses: (R10.84) Generalized abdominal pain (primary encounter diagnosis) (R14.0) Bloating (R14.2) Belching (Z86.010) History of colonic polyps Consultation requested by Dr. Houser for an opinion regarding abdominal pain and history of colonpolyps. My final recommendations will be communicated back to the requesting physician by way of shared Medical record or letter to requesting physician via US mail. Sincere Perkins PA-C documented in this encounterK[facility] Miscellaneous Notes* Telephone Encounter - Sincere Perkins PA-C - 11/29/2021 3:[address] Marshall, this question to be deferred to Anesthesia. He stated no problem from endoscopy standpoint if patient were to take medication with a small amount of applesauce, but this would dependon time medication is typically taken and would need to follow Anesthesia's NPO instructions. I do not see where this patient has a PACC appointment scheduled prior to her procedure. Will forward this to [facility] for review and to arrange appt if needed. * Telephone Encounter - Shannon Hughes - 11/28/2021 1:51 PM EDT Patient is scheduled 12/05 for upper and lower scope with [facility] in [place] and is on miralax/dulcalax as her prep Patient called in and had questions about upcoming procedure. Patient stated she has been put on Entrestro by here heart doctor. Per patient stated she needs to eat with this medication. When she does not eat she states her stomach gets really bad. She did state she can eat apple sauce with this medication and will be fine. Patient is wanting to know if there is another way around to taking this medication. Please and review and advise on the next step for this patient Thank you Marie * Telephone Encounter - Shannon Hughes - 11/15/2021 11:33 AM EDT Patient has been added and moved up to 12/05 with [facility] in [place] for upper and lower scopes. LV of date change * Telephone Encounter - Sincere Perkins PA-C - 11/03/2021 9:51 AM EDT Noted, and patient has been made aware that if started on any anticoagulation she will remain on this for endoscopy procedure * Telephone Encounter - Dejan Lange - 11/03/2021 8:35 AM EDT Please see note below. Patient is scheduled for Heart Cath on 11-10-2021 Dejan Lorenzo Patient is in need of colonoscopy. May proceed. Patient is at moderate risk given systolic HF and need for ischemic evaluation. If elective consider waiting until after LHC, although if PCI is preformed will likely need DAPT for at least 6 months without interruption. * Telephone Encounter - Shannon Hughes - 11/02/2021 2:39 PM EDT Per patient wants [facility] and is added to waitlist * Telephone Encounter - Shannon Hughes - 11/02/2021 2:38 PM EDT 02/20/2022 colon egd ko documented in this encounterK[facility]-2022 Miscellaneous Notes* Telephone Encounter - Rula Lopez RN - 11/29/2021 1:56 PM EDT Pt. notified. Follow up with Dr. Oneill on 02/13/22 at 11am. Rula Lopez RN * Telephone Encounter - Rula Lopez RN - 11/29/2021 1:56 PM EDT I will order follow up lab work. Schedule with Dr. Oneill in 3 months. Thank you! * Telephone Encounter - Rula Lopez RN - 11/29/2021 10:54 AM EDT Pt. notified. Voices understanding. Pt. questioning what kind of follow up/ lab work she should be doing post cath? She has no appts scheduled at this time. Please advise. Rula Lopez RN * Telephone Encounter - Rula Lopez RN - 11/29/2021 10:53 AM EDT This would be ok and resume after. Thank you * Telephone Encounter - Leyla Ferreira RN - 11/29/2021 10:37 AM EDT Patient calls asking if it would be ok to skip 4 doses of Entresto while she does her bowel prep for colonoscopy scheduled on 12/05? She states she cannot take Entresto on an empty stomach, she has totake with food or else it gives her major stomach problems. Please advise. documented in this encounterK[facility]06-23-2022 History of Present illness Narrative* Vinita Flores Pss - 11/03/2021 3:26 PM EDT Patient seen by Elisha Perkins on 11/02 for consult. * Dejan Lorenzo - 11/01/2021 11:45 AM EDT Patient due for screening colonoscopy . Patient is not appropriate for open access. Please scheduleoffice consult Dejan Lorenzo documented in this encounterK[facility]22 History of Present illness Narrative* Sincere Perkins PA-C - 11/03/2021 11:47 AM EDT HISTORY AND PHYSICAL Sandra Ricardo Nadir 1945 REFERRING PHYSICIAN: Mandeep Houser DO CHIEF COMPLAINT: Consult (colonoscopy) HPI: The patient is a 76 year old female referred for endoscopy. Patient was previously evaluated by Laverne Merrill CNP in gastroenterology on 01/06/21. Patient was noted at that time to be overdue for 5-year surveillance colonoscopy for personal history of adenomatous colon polyps, and additionally had noted some complaints of rectal bleeding at that time. Sandra had been scheduled to have a colonoscopy performed by Dr. Marshall in [place] for 04/04/21, however procedure was cancelled. Patient notes she had some confusion as to why she was unable to have the procedure at that time. Review of PACC note from 03/28/21 shows that although cardiac clearance had been received on 02/22/21, there were anesthesia concerns as last cardiac office visit had also recommended a cardiac cath which had not been scheduled at that time and last EF 35%. In the interim [atient has noted various abdominal complaints including upper abdominal discomfort,bloating, gas. She also had an episode of lower abdominal pain recently which was felt to possibly be diverticulitis, but CT scan 10/27/21 showed no acute abdominal findings. Patient had recent follow-up in primary care and was scheduled to see cardiology for clearance for colonoscopy. Cardiology notes from 10/24/21 state: Cardiac Clearance Patient is in need of colonoscopy. May proceed. Patient is at moderate risk given systolic HF and need for ischemic evaluation. If elective consider waiting until after LHC, although if PCI is preformed will likely need DAPT for at least 6 months without interruption. Patient is scheduled to undergo cardiac catheterization on 11/10/21. PAST MEDICAL HISTORY Diagnosis Date Acute acalculous cholecystitis 05/30/2020 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 09/22/2020 Acute on chronic systolic CHF (congestive heart failure) (HCC) 05/03/2020 Aspiration pneumonia (HCC) 05/30/2020 Chest pain 05/03/2020 Chest pressure 01/23/2013 Chronic diastolic congestive heart failure (HCC) 02/14/2021 Clostridium difficile diarrhea 09/28/2020 Complete uterovaginal prolapse Cystocele, midline Essential hypertension 06/14/2020 Homozygous Factor V Leiden mutation (HCC) 05/03/2020 Hypothyroidism IBS (irritable bowel syndrome) 01/23/2013 Palpitation CHRONIC Post-operative state 05/24/2020 Rectocele 05/25/2020 Shortness of breath 05/03/2020 Status post laparoscopic hysterectomy 05/30/2020 Tubular adenoma of colon 12/09/2020 Uterine prolapse 05/03/2020 PAST SURGICAL HISTORY Procedure Laterality Date COLONOSCOPY 01/07/2015 COLONOSCOPY GEN ANES 12/06/2009 X3 LAST ONE IN 2009 EGD 11/08/2012 PAST SURGICAL HISTORY OF 05/14/1999 left foot bunionectomy w/screws PAST SURGICAL HISTORY OF 05/14/1981 ectopic w/tube removal PAST SURGICAL HISTORY OF 2009 CYST REMOVED FROM UTERUS PAST SURGICAL HISTORY OF 05/24/2020 TVH, partial colpectomy, anterior colporrhaphy, Dennis transobturator midurethral sling, cystourethroscopy, rectocele repair with perineorrhaphy, laparoscopic lysis of adhesions and excision of bilateral adnexal structures PAST SURGICAL HISTORY OF 09/07/2020 Laparoscopic cholecystectomy with intraoperative cholangiograms. Dr. Ragsdale Current Outpatient Medications Medication Sig rosuvastatin (CRESTOR) 5 mg tablet Take 1 tablet by mouth once daily. losartan (COZAAR) 50 mg tablet Take 1 tablet by mouth once daily. levothyroxine (LEVOXYL) 88 mcg tablet Take 1 tablet by mouth once daily. Take on empty stomach. ForThyroid OREGANO OIL ORAL Take by mouth once daily. metoprolol succinate ER (TOPROL XL) 25 mg 24 hr tablet Take 1 tablet by mouth once daily. cholecalciferol (VITAMIN D3) 1,000 unit tab tablet Take 4 Units by mouth q 24 HR. L. acidophilus/L. rhamnosus (FLORAJEN WOMEN ORAL) Take by mouth once daily. ondansetron (ZOFRAN) 4 mg tablet Take 1 tablet by mouth once daily as needed (for nausea.). furosemide (LASIX) 20 mg tablet Take 1 tablet by mouth once daily as needed. (Patient taking differently: Take 20 mg by mouth as needed. ) aspirin, enteric coated (ECOTRIN LOW STRENGTH) 81 mg EC tablet Take 1 tablet by mouth once daily. ZINC ORAL Take by mouth as needed. Current Facility-Administered Medications Medication Dose Route Frequency perflutren lipid microspheres 1.3 mL in NaCl (PF) 0.9% 10 mL injection (DEFINITY) INTRAVENOUS DIRECTED PRN sodium chloride 0.9 % (flush) 10 mL (BD POSIFLUSH) 10 mL INTRAVENOUS DIRECTED PRN perflutren lipid microspheres 1.3 mL in NaCl (PF) 0.9% 10 mL injection (DEFINITY) INTRAVENOUS DIRECTED PRN sodium chloride 0.9 % (flush) 10 mL (BD POSIFLUSH) 10 mL INTRAVENOUS DIRECTED PRN ALLERGIES: Emilio Inhibitors, Beta-Blockers (Beta-Adrenergic Blocking Agts), Augmentin [Amoxicillin-Pot Clavulanate], Codeine, Lipitor [Atorvastatin], Sulfa (Sulfonamide Antibiotics), and Amlodipine PERSONAL HISTORY: Social History Tobacco Use Smoking status: Former Smoker Types: Cigarettes Quit date: 10/22/2002 Years since quittin.0 Smokeless tobacco: Never Used Vaping Use Vaping Use: Never used Substance Use Topics Alcohol use: No Drug use: No FAMILY HISTORY: FAMILY HISTORY Problem Relation Age of Onset Blood Disease Mother Coronary Artery Disease Mother Cancer Mother lung Blood Disease Father Coronary Artery Disease Father Heart Father pacemaker Diabetes Father Breast Cancer Sister younger sis. COPD Brother Hypertension Brother Heart disease Brother Coronary Artery Disease Maternal Grandmother Ischemic Heart Disease Maternal Grandfather Coronary Artery Disease Maternal Grandfather Coronary Artery Disease Daughter REVIEW OF SYMPTOMS: The review of systems data was entered by the nurse and reviewed by fl Nursing Notes: Maritza Contreras LPN 11/02/2021 1:34 PM Signed REVIEW OF SYSTEMS: General: The patient denies fatigue, denies weight loss, denies weight gain, denies feeling hot, and denies feelings of cold. Eyes: The patient denies glaucoma, denies eye injury/surgery, wears glasses or contacts. Ear/Nose/Throat: The patient denies allergies, denies hayfever, denies ear infections, and denies bloody noses. Cardiovascular: The patient denies chest pain, denies heart disease, notes high blood pressure,denies cardiac stent, denies prior heart attack, notes irregular heart beat, denies high cholesterol, denies poor circulation, denies heart failure, other cardiac issues, denies claudication, denies cold feet, denies peripheral arterial stent. Respiratory: The patient denies tuberculosis, denies pneumonia, denies frequent cough, denies pulmonary embolism, notes shortness of breath, and denies coughing up blood. Gastrointestinal: The patient denies difficulty swallowing, denies acid reflux, denies ulcers, denies vomiting, denies jaundice/hepatitis, denies gallbladder problems, denies black or tarry stools, denies hemorrhoids, denies bleeding from rectum, notes diverticulitis, denies constipation, notes diarrhea, denies loss of stool control, and denies hernias. Kidney/Bladder: The patient denies kidney stones, denies urine infections, and denies bloody urine. Skin: The patient denies a history of skin cancer, denies bleeding/changing moles, and denies a history of skin rash. Neurologic: The patient denies a history of epilepsy/convulsions, denies headaches, denies head/spinal injuries, and denies stroke/TIA. Psychiatric: The patient denies psychiatric medications, denies depression, and denies voices, denies substance abuse. Endocrine: The patient notes thyroid disorders, denies diabetes, and denies hormonal problems. Hematologic: The patient denies a history of bruising, denies bleeding, and denies anemia, denies blood clots. Infections: The patient notes a history of measles, denies rheumatic fever, and denies sexually transmitted diseases. Musculoskeletal: The patient notes back pain/injury, notes back problems, denies sciatica, notes knee/foot trouble, notes arthritis, or notes gout. When was patient's last Mammogram screening? 2021 Last Colonoscopy: 2020 Maritza Contreras LPN I have confirmed and edited as necessary, the PFSH and ROS obtained by others. Sincere Perkins PA-C PHYSICAL EXAMINATION: General: The patient is 76 year old female, well nourished, well hydrated in no acute distress. Thepatient is oriented to time, place, and person. VITALS: Blood pressure 118/62, pulse 80, temperature 36.3 C (97.3 F), height 162.6 cm (5' 4), weight 86.6 kg (191 lb), SpO2 94 %. Body mass index is 32.79 kg/m . HEENT: Normal cephalic, ataumatic, pupils are equally round, sclera are anicteric, mucous membranesare moist, oropharynx is clear. Neck has no masses, asymmetry or lymphadenopathy. Respiratory: Clear to auscultation and percussion. Normal respiratory excursion and pattern. Cardiac: Examination is regular rate and rhythm. Normal S1/S2 Abdominal exam: Soft, nontender, with no palpable masses. No hepatosplenomegaly. No palpable hernias. Extremities: no clubbing, cyanosis or edema. No adenopathy. LABORATORY VALUES: As Noted RADIOLOGIC STUDIES: As Noted Assessment IMPRESSION: generalized abdominal pain, bloating, belching, history of colon polyps. Multiple medical comorbidities, upcoming cardiac catheterization planned, history of JONES, heart failure PLAN: I have reviewed my findings with the surgeon. Will plan for upper and lower endoscopy after cardiac cath has been completed. We discussed the risks and benefits of the planned endoscopy. I haveinformed the patient that complications can occur including failure to complete the endoscopy and pe rforation. The patient had the opportunity to ask questions concerning the planned endoscopy. My staff has also explained the procedure to the patient in understandable terms and has given the patient printed material concerning the procedure. The patient freely consents to surgery. The patient was offered a surgery/procedure at a [facility] facility. I have counseled the patient regarding the risk of exposure to and/or potential harm posed by the COVID-19 virus with having a surgery/procedure at this time versus the risk of delaying the surgery/procedure. It is not possible to know either the risk of delaying the surgery or procedure or chance of getting an infection with perfect accuracy, but a joint decision was made between the patient and myself to proceed at this time with endoscopy. I plan to use Miralax/Dulcolax bowel preparation We will plan for Monitored Anesthetic Care. Patient will require PACC review prior to procedure Discussed that if patient initiated on anticoagulation following her cardiac procedure, will need to remain on anticoagulation for endoscopy Diagnoses: (R10.84) Generalized abdominal pain (primary encounter diagnosis) (R14.0) Bloating (R14.2) Belching (Z86.010) History of colonic polyps Consultation requested by Dr. Houser for an opinion regarding abdominal pain and history of colonpolyps. My final recommendations will be communicated back to the requesting physician by way of shared Medical record or letter to requesting physician via US mail. Sincere Perkins PA-C documented in this encounterK[facility]22 Nurse Note* Maritza Contreras LPN - 11/02/2021 1:31 PM EDT REVIEW OF SYSTEMS: General: The patient denies fatigue, denies weight loss, denies weight gain, denies feeling hot, and denies feelings of cold. Eyes: The patient denies glaucoma, denies eye injury/surgery, wears glasses or contacts. Ear/Nose/Throat: The patient denies allergies, denies hayfever, denies ear infections, and denies bloody noses. Cardiovascular: The patient denies chest pain, denies heart disease, notes high blood pressure,denies cardiac stent, denies prior heart attack, notes irregular heart beat, denies high cholesterol, denies poor circulation, denies heart failure, other cardiac issues, denies claudication, denies cold feet, denies peripheral arterial stent. Respiratory: The patient denies tuberculosis, denies pneumonia, denies frequent cough, denies pulmonary embolism, notes shortness of breath, and denies coughing up blood. Gastrointestinal: The patient denies difficulty swallowing, denies acid reflux, denies ulcers, denies vomiting, denies jaundice/hepatitis, denies gallbladder problems, denies black or tarry stools, denies hemorrhoids, denies bleeding from rectum, notes diverticulitis, denies constipation, notes diarrhea, denies loss of stool control, and denies hernias. Kidney/Bladder: The patient denies kidney stones, denies urine infections, and denies bloody urine. Skin: The patient denies a history of skin cancer, denies bleeding/changing moles, and denies a history of skin rash. Neurologic: The patient denies a history of epilepsy/convulsions, denies headaches, denies head/spinal injuries, and denies stroke/TIA. Psychiatric: The patient denies psychiatric medications, denies depression, and denies voices, denies substance abuse. Endocrine: The patient notes thyroid disorders, denies diabetes, and denies hormonal problems. Hematologic: The patient denies a history of bruising, denies bleeding, and denies anemia, denies blood clots. Infections: The patient notes a history of measles, denies rheumatic fever, and denies sexually transmitted diseases. Musculoskeletal: The patient notes back pain/injury, notes back problems, denies sciatica, notes knee/foot trouble, notes arthritis, or notes gout. When was patient's last Mammogram screening? 2021 Last Colonoscopy: 2020 Maritza Contreras LPN documented in this encounterK[facility]22 Miscellaneous Notes* Telephone Encounter - Estelita Hermosillo LPN - 10/27/2021 10:51 AM EDT I spoke to and informed her of Estelita's response to lab results. Patient voiced understanding. Estelita Hermosillo LPN * Telephone Encounter - Estelita [place] LPN - 10/27/2021 10:50 AM EDT ----- Message from Estelita Culp APRN.DIRECTOR OF DONOR RELATIONS sent at 10/27/2021 10:39 AM EDT ----- Please call patient and notify her of results. BMP and CBC stable. Thank you! documented in this encounterK[facility]-16-[facility]22 History of Present illness Narrative* RT Dayanna(R) - 10/27/2021 9:20 AM EDT Radiology Service Progress Note DATE OF SERVICE: October 27, 2021 TIME: 1:36 PM PATIENT IDENTITY VERIFICATION COMPLETED USING TWO (2) STANDARD IDENTIFIERS: Name and Date of confirmed by patient verbally. FALL SCREENING: Has the patient had 2 falls in the last year or 1 fall with injury or currently using an Ambulatory Assistive Device (Walker, Cane, Wheelchair, Crutches, etc.)? No PATIENT GENDER DATA: Female. status: : No status: NO. PATIENT RELEVANT IMPLANT DATA REVIEWED: Yes ALLERGIES: Reviewed and unchanged CONTRAST ALLERGY: NO. EXAM: CT -CONTRAST INDUCED NEPHROPATHY RISK FACTORS: Patient age > 60 years CREATININE: Creatinine Date Value Ref Range Status 10/27/2021 0.72 0.58 - 0.96 mg/dL Final 09/14/2021 0.77 0.58 - 0.96 mg/dL Final 01/31/2021 0.78 0.58 - 0.96 mg/dL Final Estimated Glomerular Filtration Rate Date Value Ref Range Status 10/27/2021 87 >=60 mL/min/1.73m Final Comment: Estimated Glomerular Filtration Rate (eGFR) is calculated using the 2020 CKD-EPI creatinine equation. This equation utilizes serum creatinine, sex, and age as parameters. The creatinine assay has traceable calibration to isotope dilution- mass spectrometry. Refer to KDIGO guidelines for clinical interpretation. In patients with unstable renal function, e.g. those with acute kidney injury, the eGFRmay not accurately reflect actual GFR. eGFR- Date Value Ref Range Status 01/31/2021 >60 Final P.O.C.T. RESULTS: POC done: Yes, See Lab Tab October 27, 2021 TREATMENT: N/A PERIPHERAL IV DATA: Ambulatory: A peripheral IV was started in the Left antecubital site with a Angio cath: 22 gauge. RADIOLOGY DEPARTMENT: CT; Exam(s) Completed: Abdomen/Pelvis SIGNATURE: RT Mauricio(R) PATIENT NAME: Sandra Schmitz DATE: October 27, 2021 TIME: 1:36 PM documented in this encounterKet[facility]06-13-2022 Miscellaneous Notes* Telephone Encounter - Kelsey Shannon RN - 10/24/2021 4:00 PM EDT Patient scheduled for left heart cath, with Dr Oneill on 11/10/21. Instructions reviewed. Questions answered. Patient verbalized understanding. 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 Pt may eat a light meal and drink clear liquids until 3 hours prior to procedure. -With a sip of water on 11/10/21 morning take: Aspirin 325mg along with usual BP meds- Losartan andmetoprolol. -Labs to be done by 10/28/21. - You must have someone drive you home from your procedure. -worm farm laborer policy is pt not be alone first evening Office phone number provided for questions or concerns. Kelsey Shannon RN * Telephone Encounter - Luzma Tejeda [facility] - 10/24/2021 1:33 PM EDT Schedule C on 11/10/[address] Oneill documented in this encounterK[facility]06-13-2022 History of Present illness Narrative* Kelsey Costa LPN - 10/24/2021 10:20 AM EDT Patient scheduled. Kelsey Costa LPN * Mandeep Houser DO - 10/24/2021 9:28 AM EDT See below, needs consult with surgeon Mandeep Houser DO * Dejan Lorenzo - 10/24/2021 8:27 AM EDT Patient due for a colonoscopy. Patient is not ok for open access. Patient has CT coming up for diverticulitis. Please schedule office consult with Dr Marshall, Dr Webber, Dr Grover or Dr Ragsdale after CT documented in this encounterKettering [facility]06-08-2022 Instructions* Patient Instructions* Alejandrina Harvey APRN.CNP - 10/19/2021 12:28 PM EDT Schedule your CT scan of your abdomen and pelvis. I'll get back with you in regards to the clearance for you colonoscopy. documented in this encounterKet[facility]06-08-2022 History of Present illness Narrative* Alejandrina Harvey APRN.CNP - 10/19/2021 11:58 AM EDT Chief Complaint Patient presents with: Abdominal Pain: Discuss colonoscopy HPI Sandra Schmitz is a 76 year old female who presents here today for Above Complaints. Today: Continues problems with her stomach. Previously difficulty being approved for her colonoscopy. Would like assistance in getting it scheduled-was supposed to have been last December. Is concerned because she does have known polyps and would like to get this completed. Has a bladder sling. Is passing a lot of gas, orally and rectally. Past medical history, appointments, medications, allergies reviewed. Previous Medical History PAST MEDICAL HISTORY Diagnosis Date Acute acalculous cholecystitis 05/30/2020 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 09/22/2020 Acute on chronic systolic CHF (congestive heart failure) (HCC) 05/03/2020 Aspiration pneumonia (HCC) 05/30/2020 Chest pain 05/03/2020 Chest pressure 01/23/2013 Chronic diastolic congestive heart failure (HCC) 02/14/2021 Clostridium difficile diarrhea 09/28/2020 Complete uterovaginal prolapse Cystocele, midline Essential hypertension 06/14/2020 Homozygous Factor V Leiden mutation (HCC) 05/03/2020 Hypothyroidism IBS (irritable bowel syndrome) 01/23/2013 Palpitation CHRONIC Post-operative state 05/24/2020 Rectocele 05/25/2020 Shortness of breath 05/03/2020 Status post laparoscopic hysterectomy 05/30/2020 Tubular adenoma of colon 12/09/2020 Uterine prolapse 05/03/2020 Previous Surgical History PAST SURGICAL HISTORY Procedure Laterality Date COLONOSCOPY 01/07/2015 COLONOSCOPY GEN ANES 12/06/2009 X3 LAST ONE IN 2009 EGD 11/08/2012 PAST SURGICAL HISTORY OF 05/14/1999 left foot bunionectomy w/screws PAST SURGICAL HISTORY OF 05/14/1981 ectopic w/tube removal PAST SURGICAL HISTORY OF 2009 CYST REMOVED FROM UTERUS PAST SURGICAL HISTORY OF 05/24/2020 TVH, partial colpectomy, anterior colporrhaphy, Dennis transobturator midurethral sling, cystourethroscopy, rectocele repair with perineorrhaphy, laparoscopic lysis of adhesions and excision of bilateral adnexal structures PAST SURGICAL HISTORY OF 09/07/2020 Laparoscopic cholecystectomy with intraoperative cholangiograms. Dr. Ragsdael Family History FAMILY HISTORY Problem Relation Age of Onset Blood Disease Mother Coronary Artery Disease Mother Cancer Mother lung Blood Disease Father Coronary Artery Disease Father Heart Father pacemaker Diabetes Father Breast Cancer Sister younger sis. COPD Brother Hypertension Brother Heart disease Brother Coronary Artery Disease Maternal Grandmother Ischemic Heart Disease Maternal Grandfather Coronary Artery Disease Maternal Grandfather Coronary Artery Disease Daughter Patient Allergies ALLERGIES Allergen Reactions Emilio Inhibitors Other: See Comments Short of breath, symptoms of heart failure Beta-Blockers (Beta* Other: See Comments Short of breath, symptoms of heart failure Augmentin [Amoxicil* GI Upset Codeine Mental Status Change Patient felt like she was made out of lead Lipitor [Atorvastat* Myalgia Muscle aches Sulfa (Sulfonamide * Other: See Comments Amlodipine Other: See Comments lightheaded Current Medications Current Outpatient Medications on File Prior to Visit Medication Sig levothyroxine (LEVOXYL) 88 mcg tablet Take 1 tablet by mouth once daily. Take on empty stomach. ForThyroid OREGANO OIL ORAL Take by mouth once daily. metoprolol succinate ER (TOPROL XL) 25 mg 24 hr tablet Take 1 tablet by mouth once daily. losartan (COZAAR) 50 mg tablet Take 1 tablet by mouth once daily. Bisacodyl (DULCOLAX) 5 mg tab Use as directed for Miralax / Gatorade Bowel Prep Kit cholecalciferol (VITAMIN D3) 1,000 unit tab tablet Take 1 Units by mouth q 24 HR. L. acidophilus/L. rhamnosus (FLORAJEN WOMEN ORAL) Take by mouth. ondansetron (ZOFRAN) 4 mg tablet Take 1 tablet by mouth once daily as needed (for nausea.). ZINC ORAL Take by mouth. C/sourcherry/celery/grape seed (TART FONTANEZ ORAL) Take by mouth. furosemide (LASIX) 20 mg tablet Take 1 tablet by mouth once daily as needed. (Patient taking differently: Take 20 mg by mouth as needed. ) aspirin, enteric coated (ECOTRIN LOW STRENGTH) 81 mg EC tablet Take 1 tablet by mouth once daily. Current Facility-Administered Medications on File Prior to Visit Medication perflutren lipid microspheres 1.3 mL in NaCl (PF) 0.9% 10 mL injection (DEFINITY) sodium chloride 0.9 % (flush) 10 mL (BD POSIFLUSH) perflutren lipid microspheres 1.3 mL in NaCl (PF) 0.9% 10 mL injection (DEFINITY) sodium chloride 0.9 % (flush) 10 mL (BD POSIFLUSH) Social History Social History Tobacco Use Smoking status: Former Smoker Types: Cigarettes Quit date: 10/22/2002 Years since quittin.0 Smokeless tobacco: Never Used Vaping Use Vaping Use: Never used Substance Use Topics Alcohol use: No Drug use: No Review of Symptoms REVIEW OF SYSTEMS see HPI, otherwise negative EXAM: BP 132/92 (BP Site: Left Arm, BP Position: Sitting, BP Cuff Size: Regular Adult) Pulse 79 Resp 16 Wt 86.7 kg (191 lb 3.2 oz) SpO2 96% BMI 33.88 kg/m General Appearance: Well appearing, alert, in no acute distress, well-hydrated, well nourished.. Heart: RRR without murmur, gallop, or rubs. No ectopy. Abdomen: soft, mild general tenderness, non-distended, bowel sounds normal throughout. Health Maintenance List HEPATITIS C SCREENING Never done BP CONTROLLED (<130/80) Never done DTAP,TDAP,TD(1 - Tdap) Never done SHINGRIX VACCINE(1 of 2) Never done BONE DENSITY Never done COLORECTAL CANCER SCREENING due on 12/19/2019 ADVANCE DIRECTIVE DISCUSSION Never done DEPRESSION SCREENING due on 12/09/2021 PNEUMOCOCCAL: 65+(2 - PCV) due on 12/29/2021 LDL CHOLESTEROL due on 09/14/2022 ANNUAL PCP TEAM CHRONIC DISEASE VISIT due on 09/21/2022 DIABETES SCREEN due on 09/14/2024 LIPID SCREEN due on 09/14/2026 INFLUENZA Discontinued COVID-19 VACCINE Discontinued Data reviewed Previous records, office notes ASSESSMENT/PLAN: 1. Diverticulitis - ICD9: 562.11, ICD10: K57.92 (primary diagnosis) Obtain CT scan due to continued persistent abdominal pain. Will contact cardiology as well as general surgery to discuss process to be approved for and have colonoscopy. - CT ABD/PEL W IVCON - IV CONTRAST (RADIOLOGY PROCEDURE) - ENTERIC CONTRAST (RADIOLOGY PROCEDURE) 2. RLQ abdominal pain - ICD9: 789.03, ICD10: R10.[address] scan due to continued persistent abdominal pain. Will contact cardiology as well as general surgery to discuss process to be approved for and have colonoscopy. - CT ABD/PEL W IVCON - IV CONTRAST (RADIOLOGY PROCEDURE) - ENTERIC CONTRAST (RADIOLOGY PROCEDURE) 3. Lower abdominal pain - ICD9: 789.09, ICD10: R10.[address] scan due to continued persistent abdominal pain. Will contact cardiology as well as general surgery to discuss process to be approved for and have colonoscopy. - CT ABD/PEL W IVCON - IV CONTRAST (RADIOLOGY PROCEDURE) - ENTERIC CONTRAST (RADIOLOGY PROCEDURE) Alejandrina Harvey APRN.TIM documented in this encounterKet[facility]05-11-2022 History of Present illness Narrative* Mandeep Houser DO - 09/21/2021 7:37 PM EDT CC: Sandra Schmitz is a 76 year old female who presents to the office for OMT HPI: Here for OMT today Chronic right mid back pain and neck pain and upper back pain, has been going to PHYSICAL THERAPY with some benefit. Denies any arm weakness or injuries. PAST MEDICAL HISTORY Diagnosis Date Acute acalculous cholecystitis 05/30/2020 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 09/22/2020 Acute on chronic systolic CHF (congestive heart failure) ([facility]) 05/03/2020 Aspiration pneumonia ([facility]) 05/30/2020 Chest pain 05/03/2020 Chest pressure 01/23/2013 Chronic diastolic congestive heart failure ([facility]) 02/14/2021 Clostridium difficile diarrhea 09/28/2020 Complete uterovaginal prolapse Cystocele, midline Essential hypertension 06/14/2020 Homozygous Factor V Leiden mutation ([facility]) 05/03/2020 Hypothyroidism IBS (irritable bowel syndrome) 01/23/2013 Palpitation CHRONIC Post-operative state 05/24/2020 Rectocele 05/25/2020 Shortness of breath 05/03/2020 Status post laparoscopic hysterectomy 05/30/2020 Tubular adenoma of colon 12/09/2020 Uterine prolapse 05/03/2020 PAST SURGICAL HISTORY Procedure Laterality Date COLONOSCOPY 01/07/2015 COLONOSCOPY GEN ANES 12/06/2009 X3 LAST ONE IN 2009 EGD 11/08/2012 PAST SURGICAL HISTORY OF 05/14/1999 left foot bunionectomy w/screws PAST SURGICAL HISTORY OF 05/14/1981 ectopic w/tube removal PAST SURGICAL HISTORY OF 2009 CYST REMOVED FROM UTERUS PAST SURGICAL HISTORY OF 05/24/2020 TVH, partial colpectomy, anterior colporrhaphy, Dennis transobturator midurethral sling, cystourethroscopy, rectocele repair with perineorrhaphy, laparoscopic lysis of adhesions and excision of bilateral adnexal structures PAST SURGICAL HISTORY OF 09/07/2020 Laparoscopic cholecystectomy with intraoperative cholangiograms. Dr. Ragsdale Current Outpatient Medications Medication Sig levothyroxine (LEVOXYL) 88 mcg tablet Take 1 tablet by mouth once daily. Take on empty stomach. ForThyroid OREGANO OIL ORAL Take by mouth once daily. metoprolol succinate ER (TOPROL XL) 25 mg 24 hr tablet Take 1 tablet by mouth once daily. losartan (COZAAR) 50 mg tablet Take 1 tablet by mouth once daily. Bisacodyl (DULCOLAX) 5 mg tab Use as directed for Miralax / Gatorade Bowel Prep Kit cholecalciferol (VITAMIN D3) 1,000 unit tab tablet Take 1 Units by mouth q 24 HR. L. acidophilus/L. rhamnosus (FLORAJEN WOMEN ORAL) Take by mouth. ondansetron (ZOFRAN) 4 mg tablet Take 1 tablet by mouth once daily as needed (for nausea.). ZINC ORAL Take by mouth. C/sourcherry/celery/grape seed (TART FONTANEZ ORAL) Take by mouth. furosemide (LASIX) 20 mg tablet Take 1 tablet by mouth once daily as needed. (Patient taking differently: Take 20 mg by mouth as needed. ) aspirin, enteric coated (ECOTRIN LOW STRENGTH) 81 mg EC tablet Take 1 tablet by mouth once daily. Current Facility-Administered Medications Medication Dose Route Frequency perflutren lipid microspheres 1.3 mL in NaCl (PF) 0.9% 10 mL injection (DEFINITY) INTRAVENOUS DIRECTED PRN sodium chloride 0.9 % (flush) 10 mL (BD POSIFLUSH) 10 mL INTRAVENOUS DIRECTED PRN perflutren lipid microspheres 1.3 mL in NaCl (PF) 0.9% 10 mL injection (DEFINITY) INTRAVENOUS DIRECTED PRN sodium chloride 0.9 % (flush) 10 mL (BD POSIFLUSH) 10 mL INTRAVENOUS DIRECTED PRN ALLERGIES Allergen Reactions Emilio Inhibitors Other: See Comments Short of breath, symptoms of heart failure Beta-Blockers (Beta* Other: See Comments Short of breath, symptoms of heart failure Augmentin [Amoxicil* GI Upset Codeine Mental Status Change Patient felt like she was made out of lead Lipitor [Atorvastat* Myalgia Muscle aches Sulfa (Sulfonamide * Other: See Comments Amlodipine Other: See Comments lightheaded Social History Tobacco Use Smoking status: Former Smoker Types: Cigarettes Quit date: 10/22/2002 Years since quittin.9 Smokeless tobacco: Never Used Vaping Use Vaping Use: Never used Substance Use Topics Alcohol use: No Drug use: No ROS: See HPI PE: There were no vitals taken for this visit. Gen: A&OX3, NAD, non-toxic appearing HEENT: PERRLA, EOMs intact b/l, nares without drainage, pharynx without erythema, exudate, lesions,or drainage. Uvula midline. Neck: No LAD, no thyromegaly, no meningismus. No spinal TTP, suboccipital TTP on right >left, cervical muscle spasm right>left Right rib 7 inhalation dysfunction [id number] Skin: No rashes, lesions, or wounds on exposed skin. ASSESSMENT/PLAN: 1. Rib pain - ICD9: 786.50, ICD10: R07.81 (primary diagnosis) OMT: Discussed risks, benefits, alternatives, and potential SEs of treatment. Patient wished to proceed with OMT. OMT was performed to the cervical region, thoracic region, head and ribs including soft tissue, functional methods. Patient tolerated treatment well with good release, increase ROM, anddecrease in pain, without complications. Instructed patient to drink plenty of water. Gentle stretches at home. 2. Somatic dysfunction of head region - ICD9: 739.0, ICD10: M99.00 OMT: Discussed risks, benefits, alternatives, and potential SEs of treatment. Patient wished to proceed with OMT. OMT was performed to the cervical region, thoracic region, head and ribs including soft tissue, functional methods. Patient tolerated treatment well with good release, increase ROM, anddecrease in pain, without complications. Instructed patient to drink plenty of water. Gentle stretches at home. 3. Somatic dysfunction of spine, cervical - ICD9: 739.1, ICD10: M99.01 OMT: Discussed risks, benefits, alternatives, and potential SEs of treatment. Patient wished to proceed with OMT. OMT was performed to the cervical region, thoracic region, head and ribs including soft tissue, functional methods. Patient tolerated treatment well with good release, increase ROM, anddecrease in pain, without complications. Instructed patient to drink plenty of water. Gentle stretches at home. 4. Somatic dysfunction of rib - ICD9: 739.8, ICD10: M99.08 OMT: Discussed risks, benefits, alternatives, and potential SEs of treatment. Patient wished to proceed with OMT. OMT was performed to the cervical region, thoracic region, head and ribs including soft tissue, functional methods. Patient tolerated treatment well with good release, increase ROM, anddecrease in pain, without complications. Instructed patient to drink plenty of water. Gentle stretches at home. 5. Somatic dysfunction of spine, thoracic - ICD9: 739.2, ICD10: M99.02 OMT: Discussed risks, benefits, alternatives, and potential SEs of treatment. Patient wished to proceed with OMT. OMT was performed to the cervical region, thoracic region, head and ribs including soft tissue, functional methods. Patient tolerated treatment well with good release, increase ROM, anddecrease in pain, without complications. Instructed patient to drink plenty of water. Gentle stretches at home. 6. Neck pain - ICD9: 723.1, ICD10: M54.2 OMT: Discussed risks, benefits, alternatives, and potential SEs of treatment. Patient wished to proceed with OMT. OMT was performed to the cervical region, thoracic region, head and ribs including soft tissue, functional methods. Patient tolerated treatment well with good release, increase ROM, anddecrease in pain, without complications. Instructed patient to drink plenty of water. Gentle stretches at home. Mandeep Houser DO Return if no improvement. Follow up with Mandeep Houser DO. To ER if develops chest pain, shortness of breath Discussed risks, benefits, alternatives, and potential side effects of medications. Patient/Guardian expressed understanding and agreed with the plan. See patient instructions. Mandeep Houser DO [address] [place] [address] documented in this encounterKettering [facility]05-09-2022 Miscellaneous Notes* Telephone Encounter - Griselda Harris Ma - 09/19/2021 9:18 AM EDT Pt notified and verbalized understanding Griselda Harris Ma * Telephone Encounter - Alejandrina Harvey APRN.CNP - 09/19/2021 7:42 AM EDT Please let Sandra know that her I received her lab results. Her vitamin D level is low. I'd like her to start taking a daily Vitamin D supplement. Vitamin D3 5000 units daily. This can be found in the vitamin aisle. Her TSH (thyroid) is elevated. I'd like her to increase her dose and recheck again in 4-6 weeks. This lab has been entered, medication sent to the pharmacy. Her A1C (3-month blood glucose average) is elevated into the prediabetes range. Cholesterol/lipids remain elevated but stable. For both her A1C and cholesterol, I recommend exercise, weight loss, and a low carbohydrate, low fat/cholesterol diet, with green vegetables. Alejandrina Harvey APRN.CNP The following approved medication requests have been transmitted electronically. Signed Prescriptions Disp Refills levothyroxine (LEVOXYL) 88 mcg tablet 30 tablet 3 Sig: Take 1 tablet by mouth once daily. Take on empty stomach. For Thyroid Authorizing Provider: ALEJANDRINA HARVEY APRN.CNP documented in this encounterKettering [facility]04-22-2022 Miscellaneous Notes* Telephone Encounter - Griselda Harris Ma - 09/02/2021 3:27 PM EDT Pt informed of results and verbalized understanding. Griselda Harris Ma * Telephone Encounter - Alejandrina Harvey APRN.CNP - 09/02/2021 3:17 PM EDT Please let Sandra know that I received the results of her elbow and shoulder xrays. Her elbow and shoulder look completely normal. She can discuss these more with Dr. Houser during he upcoming appointment. Alejandrina Harvey APRN.CNP documented in this encounterKettering Health [facility]04-21-2022 Instructions* Patient Instructions* Alejandrina Harvey APRN.CNP - 09/01/2021 3:57 PM EDT Have your xrays completed. I typically have results in 24 hours or less. Have your lab work completed, fasting, when able. We typically have results in 1-2 days. documented in this encounter[address]21-2022 History of Present illness Narrative* Alejandrina Yasir, VICE PRESIDENT OF OPERATIONS.DIRECTOR OF DONOR RELATIONS - 09/01/2021 3:40 PM EDT Patient presents with: Establish Care Pain (Shoulder Pain): left shoulder & elbow pain x years HPI: Sandra Schmitz is a 76 year old female who presents to the office today for review of health conditions. She is establishing care with Dr. Houser today. Concerns today: Left shoulder pain for many years. Has recently been in therapy for 4 weeks. Did help the shoulder somewhat, but not her left elbow. Therapy did not help the elbow-this started bothering her about 2 months ago. Twisting, like wringing out a washcloth really bothers her elbow. No one has ever ordered any xrays on either. Ice and heat do help momentarily. Since having her gallbladder removed, has had a lot of belching and bloating. Has intermittent diarrhea since her cholecystectomy. Was scheduled for a colonoscopy last March, but she was not given the ok to have it completed. Last 3 Encounter BP Readings: Date: BP: 09/01/2021 146/90 05/23/2021 128/88 03/28/2021 144/81 PAST MEDICAL HISTORY Diagnosis Date Acute acalculous cholecystitis 05/30/2020 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 09/22/2020 Acute on chronic systolic CHF (congestive heart failure) ([facility]) 05/03/2020 Aspiration pneumonia ([facility]) 05/30/2020 Chest pain 05/03/2020 Chest pressure 01/23/2013 Chronic diastolic congestive heart failure (HCC) 02/14/2021 Clostridium difficile diarrhea 09/28/2020 Complete uterovaginal prolapse Cystocele, midline Essential hypertension 06/14/2020 Homozygous Factor V Leiden mutation ([facility]) 05/03/2020 Hypothyroidism IBS (irritable bowel syndrome) 01/23/2013 Palpitation CHRONIC Post-operative state 05/24/2020 Rectocele 05/25/2020 Shortness of breath 05/03/2020 Status post laparoscopic hysterectomy 05/30/2020 Tubular adenoma of colon 12/09/2020 Uterine prolapse 05/03/2020 PAST SURGICAL HISTORY Procedure Laterality Date COLONOSCOPY 01/07/2015 COLONOSCOPY GEN ANES 12/06/2009 X3 LAST ONE IN 2009 EGD 11/08/2012 PAST SURGICAL HISTORY OF 05/14/1999 left foot bunionectomy w/screws PAST SURGICAL HISTORY OF 05/14/1981 ectopic w/tube removal PAST SURGICAL HISTORY OF 2009 CYST REMOVED FROM UTERUS PAST SURGICAL HISTORY OF 05/24/2020 TVH, partial colpectomy, anterior colporrhaphy, Dennis transobturator midurethral sling, cystourethroscopy, rectocele repair with perineorrhaphy, laparoscopic lysis of adhesions and excision of bilateral adnexal structures PAST SURGICAL HISTORY OF 09/07/2020 Laparoscopic cholecystectomy with intraoperative cholangiograms. Dr. Ragsdale Social History Tobacco Use Smoking status: Former Smoker Types: Cigarettes Quit date: 10/22/2002 Years since quittin.8 Smokeless tobacco: Never Used Vaping Use Vaping Use: Never used Substance Use Topics Alcohol use: No Drug use: No FAMILY HISTORY Problem Relation Age of Onset Blood Disease Mother Coronary Artery Disease Mother Cancer Mother lung Blood Disease Father Coronary Artery Disease Father Heart Father pacemaker Diabetes Father Breast Cancer Sister younger sis. COPD Brother Hypertension Brother Heart disease Brother Coronary Artery Disease Maternal Grandmother Ischemic Heart Disease Maternal Grandfather Coronary Artery Disease Maternal Grandfather Coronary Artery Disease Daughter Allergies: ALLERGIES Allergen Reactions Emilio Inhibitors Other: See Comments Short of breath, symptoms of heart failure Beta-Blockers (Beta* Other: See Comments Short of breath, symptoms of heart failure Augmentin [Amoxicil* GI Upset Codeine Mental Status Change Patient felt like she was made out of lead Lipitor [Atorvastat* Myalgia Muscle aches Sulfa (Sulfonamide * Other: See Comments Amlodipine Other: See Comments lightheaded Current Meds: levothyroxine (SYNTHROID) 75 mcg tablet Take 1 tablet by mouth daily before breakfast. OREGANO OIL ORAL Take by mouth once daily. metoprolol succinate ER (TOPROL XL) 25 mg 24 hr tablet Take 1 tablet by mouth once daily. losartan (COZAAR) 50 mg tablet Take 1 tablet by mouth once daily. Bisacodyl (DULCOLAX) 5 mg tab Use as directed for Miralax / Gatorade Bowel Prep Kit cholecalciferol (VITAMIN D3) 1,000 unit tab tablet Take 1 Units by mouth q 24 HR. L. acidophilus/L. rhamnosus (FLORAJEN WOMEN ORAL) Take by mouth. ondansetron (ZOFRAN) 4 mg tablet Take 1 tablet by mouth once daily as needed (for nausea.). ZINC ORAL Take by mouth. C/sourcherry/celery/grape seed (TART FONTANEZ ORAL) Take by mouth. furosemide (LASIX) 20 mg tablet Take 1 tablet by mouth once daily as needed. aspirin, enteric coated (ECOTRIN LOW STRENGTH) 81 mg EC tablet Take 1 tablet by mouth once daily. Review of Systems All other systems reviewed and are negative. See HPI PE: 09/01/21 1538 BP: 146/90 BP Site: Left Arm BP Position: Sitting BP Cuff Size: Large Adult Pulse: 69 SpO2: 96% Weight: 88.5 kg (195 lb) Height: 160 cm (5' 2.99) Physical Exam Vitals and nursing note reviewed. Constitutional: Appearance: Normal appearance. She is obese. HENT: Head: Normocephalic and atraumatic. Right Ear: Tympanic membrane, ear canal and external ear normal. Left Ear: Tympanic membrane, ear canal and external ear normal. Nose: Nose normal. Mouth/Throat: Mouth: Mucous membranes are moist. Pharynx: Oropharynx is clear. Eyes: Conjunctiva/sclera: Conjunctivae normal. Pupils: Pupils are equal, round, and reactive to light. Neck: Thyroid: No thyroid mass. Cardiovascular: Rate and Rhythm: Normal rate. Pulses: Normal pulses. Heart sounds: Normal heart sounds. Pulmonary: Effort: Pulmonary effort is normal. Breath sounds: Normal breath sounds. Abdominal: General: Bowel sounds are normal. Palpations: Abdomen is soft. Musculoskeletal: Left shoulder: Deformity and tenderness present. No swelling or effusion. Decreased range of motion. Normal strength. Left elbow: No swelling or deformity. Normal range of motion. Tenderness present. Cervical back: Neck supple. Tenderness present. Decreased range of motion. Skin: General: Skin is warm and dry. Capillary Refill: Capillary refill takes less than 2 seconds. Neurological: General: No focal deficit present. Mental Status: She is alert and oriented to person, place, and time. Psychiatric: Mood and Affect: Mood normal. Behavior: Behavior normal. ASSESSMENT/PLAN: 1. Chronic left shoulder pain - ICD9: 719.41, 338.29, ICD10: M25.512, G89.29 (primary diagnosis) States physical therapy has not been helpful. Requesting OMT with Dr. Houser. States this has been helpful in the past. - XR ELBOW GENERAL 2V AP/LAT LEFT - XR SHOULDER LIMITED 2V AP/TRUE AP LEFT 2. Left elbow pain - ICD9: 719.42, ICD10: M25.522 States physical therapy has not been helpful. Requesting OMT with Dr. Houser. States this has been helpful in the past. - XR ELBOW GENERAL 2V AP/LAT LEFT - XR SHOULDER LIMITED 2V AP/TRUE AP LEFT 3. Primary hypertension - ICD9: 401.9, ICD10: I10 Elevated. However, patient states is in 130/80's at home. Feels elevated being in the doctor's office as well as pain. Will recheck at upcoming appointment in a couple weeks. - CBC + DIFF - COMP METABOLIC PANEL 4. Mixed hyperlipidemia - ICD9: 272.2, ICD10: E78.2 - LIPID PANEL BASIC 5. Hypokalemia - ICD9: 276.8, ICD10: E87.6 - COMP METABOLIC PANEL 6. Screening for lipid disorders - ICD9: V77.91, ICD10: Z13.220 - LIPID PANEL BASIC 7. Screening for diabetes mellitus - ICD9: V77.1, ICD10: Z13.1 - COMP METABOLIC PANEL - HGB A1C 8. Screening for thyroid disorder - ICD9: V77.0, ICD10: Z13.29 - TSH BLD 9. Encounter for vitamin deficiency screening - ICD9: V77.99, ICD10: Z13.21 - VITAMIN D 25 HYDROXY 10. Body mass index (BMI) 34.0-34.9, adult - ICD9: V85.34, ICD10: Z68.34 - VITAMIN D 25 HYDROXY 11. Abnormal finding of blood chemistry, unspecified - ICD9: 790.6, ICD10: R79.9 - HGB A1C Alejandrina Harvey APRN.DIRECTOR OF DONOR RELATIONS To ER if develops chest pain, shortness of breath, or severe worsening of symptoms. Discussed risks, benefits, alternatives, and potential side effects of medications. Patient expressed understanding and agreed with the plan. Alejandrina Harvey APRN.DIRECTOR OF DONOR RELATIONS [address] [place] [address] documented in this encounterK[facility]-18-2022 Miscellaneous Notes* Telephone Encounter - Griselda Harris Ma - 08/29/2021 1:42 PM EDT Pt scheduled with [facility] to [email or web address] care Griselda Harris Ma * Telephone Encounter - Alejandrina Harvey APRN.CNP - 08/29/2021 1:08 PM EDT Please let her know that it will be several months until Dr. Houser can see her for a new patientappointment. If necessary, she can see Rupali or myself to establish care. Dr. Houser cannot see her for OMT at this time, as she is not yet her patient. Alejandrina Harvey APRN.CNP * Telephone Encounter - Vinita Wells - 08/29/2021 10:43 AM EDT Patient is calling stating that her sister Louisa Roger got message that it is okay for this patient to transfer care to you. Also needing seen for possible shoulder OMT Please advise if okay to schedule. documented in this encounterK[facility]04-12-2022 History of Present illness Narrative* Farzana Rodriguez LPN - 08/23/2021 10:23 AM EDT POPULATION HEALTH NAVIGATION OUTREACH Action/FYI Patient scheduled for BP alia, 11/07/2021. Pt identified by name and : YES, via phone Outreach Outcome/Action Spoke to patient or caregiver: Patient scheduled Reason for Outreach Care Gap or Scheduling/Wellness visits Payer: Payor: MEDICARE / Plan: MEDICARE A AND B / Product Type: Medicare / Care Gap Reviewed:: Follow-up appointment Controlling Blood Pressure Reminder: Reminder note to check Health Maintenance for items below Health Maintenance items due: HEPATITIS C SCREENING Never done BP CONTROLLED (<130/80) Never done DTAP,TDAP,TD(1 - Tdap) Never done SHINGRIX VACCINE(1 of 2) Never done BONE DENSITY Never done COLORECTAL CANCER SCREENING due on 12/19/2019 ADVANCE DIRECTIVE DISCUSSION Never done Farzana Rodriguez LPN August 23, 2021 10:23 AM documented in this encounterK[facility]04-04-2022 Miscellaneous Notes* Letter - Mammography Coordinator - 08/15/2021 1:00 PM EDT August 15, 2021 PID: [id number] Sandra Schmitz [address] [place] [address] Dear Ms. Schmitz, We are pleased to inform you that the results of your recent breast imaging exam on 08/15/2021 are normal. Early detection of cancer is very important. We also understand recommendations regarding breast cancer screening are controversial. Please discuss with your primary care provider which strategy is best for you and whether a mammogram is right for you. Your imaging studies and report will be [facility] at [facility] as part of your permanent medical record and are available for your continuing care. Thank you for allowing us to help in meeting your health care needs. Sincerely, Dr. Zendejas Interpreting Radiologist [facility] (Normal over 40) documented in this encounterKettering [facility]04-04-2022 History of Present illness Narrative* Polina Castaneda, Mammo Tech - 08/15/2021 9:50 AM EDT Radiology Service Progress Note PATIENT NAME: Sandra Schmitz DATE OF SERVICE: August 15, 2021 TIME: 9:50 AM PATIENT IDENTITY VERIFICATION COMPLETED USING TWO (2) IDENTIFIERS: Name and Date of confirmedby patient verbally. FALL SCREENING: Has the patient had 2 falls in the last year or 1 fall with injury or currently using an Ambulatory Assistive Device (Walker, Cane, Wheelchair, Crutches, etc.)? No PATIENT GENDER DATA: Female. status: : No status: NO. PATIENT RELEVANT IMPLANT DATA REVIEWED: Not Applicable RADIOLOGY DEPARTMENT: Mammography PERIPHERAL IV DATA: Not applicable SIGNED BY: Lester Alvaradoo Marino August 15, 2021 9:50 AM documented in this encounterKet[facility]03-29-2022 History of Present illness Narrative* Estelita Maradiaga, PT - 08/09/2021 9:12 AM EDT Episode Visit Count: 8 Therapist That Will Oversee The Plan Of Care: Estelita Maradiaga Start of Care Date: 07/11/21 Onset Date: 07/04/21 Plan of Care Certification Date: 07/11/21 Next Certification Due Date: 08/15/21 Patient Identified by Name and Date of : Yes REHABILITATION AND SPORTS THERAPY PHYSICAL THERAPY DISCONTINUANCE OF CARE PLAN OF CARE UPDATE: Assessment: Sandra Schmitz is discontinued from Physical Therapy services due to maximal benefit. and Patient/Clinician mutual decision to discontinue current plan of care.. Patient was seen for 8 visits from Start of Care Date: 07/11/21 to 08/09/2021 and treatment included: Therapeutic exercise, Manual therapy, Self- correction management and Patient/Family/Caregiver Education. Pt. Reports reduced neck and shoulder symptoms since onset of PT services, but no lasting changes in symptom report forthe L elbow. Pt. Continues to demonstrate elbow AROM WNL with complaints of pain, but demonstrates L shoulder and cervical spine AROM grossly WNL without complaints of concordant symptoms in the L elbow. Special testing seems consistent with L elbow lateral epicondylitis. Pt. Has been advised to f/u with physician. Goals for Episode of Care: created on 07/11/21 through 09/05/21 Goals updated on 08/09/2021. [place] in home exercise program. -- PARTIALLY MET Patient will decrease pain to 1-2/10 with functional activities to allow patient to improve ADLs without limitation. -- NOT MET Patient will increase active ROM of L shoulder flexion to 170 or greater to improve performance of ADLs. -- MET Patient will demonstrate increase in L shoulder serratus anterior, lower trapezius, and rhomboid strength to 4/5 during manual muscle testing in order to improve function for basic self-care tasks, home management tasks, light functional tasks and prior functional tasks. -- MET Perform carrying, twisting, and gripping with decreased report of symptoms/pain in 6 weeks. -- PARTIALLY MET Perform shoulder elevation combined with elbow and wrist extension without Pain. -- PARTIALLY MET, complains of elbow pain, no improvement with shoulder elevation while the elbow is flexed. Improve flexibility of upper trapezius for decreased L scapular tightness. Improve postural awareness. Patient Goals: restore AROM of the L shoulder and elbow without increased symptoms to complete ADLs SUBJECTIVE: Patient Reason for Visit: Pt. reports no change, and she wants to see an ortho to view an x-ray for her L elbow. Pt. reports the elbow felt somewhat looser after the [facility] last visit but then returned back to how it was after a few days. Pt. reports the shoulder is good, no neck pain,and the elbow is very sore. She reports wall push ups are the only thing that help my shoulder pain. Pt. denies increased L elbow pain with this exercise despite weight bearing and pushing through from flexed elbows to extended elbow and wrist.. Pain: Pain Pain Level: 0 Pain Location: Neck - Left;Scapula - Left Frequency: Continuous Pain Level 2: 4 Pain Location 2: Elbow - Left Description 2: Aching Frequency 2: Intermittent Post Treatment Pain Post Treatment Pain Level: 2 Post Treatment Pain Location: Shoulder - Left;Scapula - Left Post Treatment Pain Description: Aching (grabbing) Post Treatment Symptoms: increased scapular pain following AROM examination of neck and shoulder for DC summary Post Treatment Pain Score 2: 4/10 Post Treatment Pain Location 2: Elbow - Left Post Treatment Pain Description 2: Aching (grabbing) PROMIS Scales Higher is Better 10/05/2016 01/25/2017 GH Physical - Percentile 31 % 41 % GH Mental - Percentile 63 % 53 % T-scores: mean of general population = 50. 5 points is clinically meaningfully difference Percentiles provide an indication of how the patient's score ranks in relation to the general population. Higher percentile rankings indicate better function/quality of life. 50th percentile is the average of the general population and indicates half of respondents had a worse score. T-scores: mean of general population = 50. 5 points is clinically meaningfully difference Percentiles provide an indication of how the patient's score ranks in relation to the general population. Higher percentile rankings indicate better function/quality of life. 50th percentile is the average of the general population and indicates half of respondents had a worse score. OBJECTIVE MEASURES WITH LEVEL OF FUNCTION: Elbow Observations L Elbow Presents with: Comments (unremarkable) L Elbow/Wrist Palpation Tenderness: Lateral epicondyle Cervical Spine ROM Cervical Protrusion AROM: Normal Cervical Retraction AROM: Normal Cervical Flexion AROM: Normal Cervical Extension AROM: Normal Cervical Side-Bend Right AROM: Normal Cervical Side-Bend Left AROM: Normal Cervical Rotation Right AROM: Normal Cervical Rotation Left AROM: Normal Static Testing - Cervical Sustained Cervical Protrusion: no effect Sustained Cervical Flexion: no effect Sustained Cervical Retraction: no effect Sustained Cervical Extension: no effect Sustained Cervical Extension Prone: no effect Sustained Cervical Extension Supine: no effect UE AROM L Shoulder Flex: 164 Degrees L Shoulder ABduction: 180 Degrees L Shoulder Internal Rotation (Functional): T10 L Shoulder External Rotation (Functional): posterior occiput L Elbow Extension: 0 L Elbow Flexion: 145 Degrees L Wrist Extension: 90 Degrees L Wrist Flexion: 90 Degrees (reduced symptoms with the elbow flexed) UE Joint Mobility L Elbow joint mobility: WNL L Wrist joint mobility: WNL UE Joint Mobility Comment: elbow and wrist painful with AROM, but WNL AROM demonstrated LUE grossly UE and Cervical Strength L Shoulder Shrug (C4): 4/5 L Shoulder Flexion: 5/5 L Shoulder Abduction (C5): 4/5 L Elbow Extension (C7): 3/5 L Elbow Flexion (C6): 3/5 Special Tests - Cervical Vertebral Artery Test: Negative Quadrant: Left Negative;Right Negative Spurling: Right Negative;Left Negative Median Nerve: Right Negative;Left Negative Ulnar Nerve: Left Negative;Right Negative Radial Nerve: Left Negative;Right Negative L'Hermitte's: Positive Special Tests - Shoulder Neer: Left Negative;Right Negative (only elbow pain) Special Tests - Elbow/Wrist/Hand Elbow/Wrist/Hand Special Tests: Valgus Stress Test;Varus Stress Test;Maudsley's Test Varus Stress Test: Left negative;Right negative Valgus Stress Test: Left positive;Right negative Moving Valgus Stress Test: Left positive;Right negative Maudsley's Test: Left positive TREATMENT: Therapeutic Exercise: 1: L extended elbow wrist flexion and extension 3x30 seconds 2: L RD/UD wrist with elbow extended 3: seated, Lelbow flexed 90 pronation and supination 2x20 4: cervical SB R and L stretch 3x30 sec each side (reduced scapular symptoms) 5: seated scapular squeezes 2x20 (reduced scapular symptoms) Skilled Intervention: Patient was educated in proper exercise technique and purpose for exercises. Reviewed and educated patient on additions/changes for home exercise program as above (*). Skilled judgment was provided in selection of appropriate interventions. Correct performance of therapeutic exercises was facilitated with verbal, visual and tactile cuing. Additional time necessary for assessment of neck, shoulder, and elbow due to discharge summary completed today. Educated patient on rationale for performing exercises in regards to decreasing fatigue , increase ease of ADL and ROM and function . Patient education as noted. Self-Fdc Management: 1: *advised pt. to avoid carrying the purse over the flexed elbow 2: *advised pt to avoid excessive wrist extension AROM with ADLs including reaching and gripping 3: *pt. to f/u with referring provider to discuss pain management options following PT 4: *encouraged continued HEP as tolerated to maintain strength and AROM of L wrist and elbow Skilled Intervention: Skilled judgment in the selection of proper modification for activity of daily living/home management based on clinical presentation, deficits, and needs. Reviewed patient specific diagnosis in relation to activities of daily living/home management. Activity progression based on professional judgement. Instructed on proper lifting and carrying techniques with importance of core activation. Billing Therapeutic Exercise Treatment Minutes: 25 Self-Care/Home Management Treatment Minutes: 5 Total Treatment Time Minutes (timed and untimed codes) : 30 Estelita Maradiaga PT documented in this encounterK[facility]08-25-2021 History of Present illness Narrative* Nely Carrasquillo RT(R) - 01/05/2021 10:20 AM EDT Radiology Service Progress Note PATIENT NAME: Sandra Schmitz DATE OF SERVICE: January 05, 2021 TIME: 10:18 AM PATIENT IDENTITY VERIFICATION COMPLETED USING TWO (2) IDENTIFIERS: Name and Date of confirmedby patient verbally. FALL SCREENING: Has the patient had 2 falls in the last year or 1 fall with injury or currently using an Ambulatory Assistive Device (Walker, Cane, Wheelchair, Crutches, etc.)? No PATIENT GENDER DATA: Female. status: : No status: NO. PATIENT RELEVANT IMPLANT DATA REVIEWED: Not Applicable RADIOLOGY DEPARTMENT: General X-ray: Exam(s) Completed: Lower Extremity X- Ray(s): Ankle, Right and Wt. Bearing PERIPHERAL IV DATA: Not applicable SIGNED BY: RT Latricia(R) January 05, 2021 10:18 AM documented in this encounterKettering [facility]03-22-2021 History of Present illness Narrative* Luzma VegaRt)Marino - 08/02/2020 12:10 PM EDT Radiology Service Progress Note PATIENT NAME: Sandra Schmitz DATE OF SERVICE: August 02, 2020 TIME: 12:14 PM PATIENT IDENTITY VERIFICATION COMPLETED USING TWO (2) IDENTIFIERS: Name and Date of confirmedby patient verbally. FALL SCREENING: Has the patient had 2 falls in the last year or 1 fall with injury or currently using an Ambulatory Assistive Device (Walker, Cane, Wheelchair, Crutches, etc.)? No PATIENT GENDER DATA: Female. status: : No status: NO. PATIENT RELEVANT IMPLANT DATA REVIEWED: Not Applicable RADIOLOGY DEPARTMENT: General X-ray: Exam(s) Completed: Lower Extremity X- Ray(s): Toes, Left: PERIPHERAL IV DATA: Not applicable SIGNED BY: RT Radha August 02, 2020 12:14 PM documented in this encounterK[facility]01-17-2021 History of Past illness Narrative* Problem Noted Date Resolved Date Aspiration pneumonia 05/30/2020 09/22/2020 Post-operative state 05/24/2020 06/14/2020 Shortness of breath 05/03/2020 06/14/2020 Chest pain 05/03/2020 06/14/2020 documented as of this encounter (statuses as of 08/09/2021) [address]17-2021 History of Past illness Narrative* Problem Noted Date Resolved Date Aspiration pneumonia 05/30/2020 09/22/2020 Post-operative state 05/24/2020 06/14/2020 Shortness of breath 05/03/2020 06/14/2020 Chest pain 05/03/2020 06/14/2020 documented as of this encounter (statuses as of 08/16/2021) [address]17-2021 History of Past illness Narrative* Problem Noted Date Resolved Date Aspiration pneumonia 05/30/2020 09/22/2020 Post-operative state 05/24/2020 06/14/2020 Shortness of breath 05/03/2020 06/14/2020 Chest pain 05/03/2020 06/14/2020 documented as of this encounter (statuses as of 08/17/2021) [address]17-2021 History of Past illness Narrative* Problem Noted Date Resolved Date Aspiration pneumonia 05/30/2020 09/22/2020 Post-operative state 05/24/2020 06/14/2020 Shortness of breath 05/03/2020 06/14/2020 Chest pain 05/03/2020 06/14/2020 documented as of this encounter (statuses as of 08/23/2021) [address]17-2021 History of Past illness Narrative* Problem Noted Date Resolved Date Aspiration pneumonia 05/30/2020 09/22/2020 Post-operative state 05/24/2020 06/14/2020 Shortness of breath 05/03/2020 06/14/2020 Chest pain 05/03/2020 06/14/2020 documented as of this encounter (statuses as of 09/02/2021) [address]17-2021 History of Past illness Narrative* Problem Noted Date Resolved Date Aspiration pneumonia 05/30/2020 09/22/2020 Post-operative state 05/24/2020 06/14/2020 Shortness of breath 05/03/2020 06/14/2020 Chest pain 05/03/2020 06/14/2020 documented as of this encounter (statuses as of 09/07/2021) [address]17-2021 History of Past illness Narrative* Problem Noted Date Resolved Date Aspiration pneumonia 05/30/2020 09/22/2020 Post-operative state 05/24/2020 06/14/2020 Shortness of breath 05/03/2020 06/14/2020 Chest pain 05/03/2020 06/14/2020 documented as of this encounter (statuses as of 09/19/2021) [address]17-2021 History of Past illness Narrative* Problem Noted Date Resolved Date Aspiration pneumonia 05/30/2020 09/22/2020 Post-operative state 05/24/2020 06/14/2020 Shortness of breath 05/03/2020 06/14/2020 Chest pain 05/03/2020 06/14/2020 documented as of this encounter (statuses as of 09/21/2021) [address]17-2021 History of Past illness Narrative* Problem Noted Date Resolved Date Aspiration pneumonia 05/30/2020 09/22/2020 Post-operative state 05/24/2020 06/14/2020 Shortness of breath 05/03/2020 06/14/2020 Chest pain 05/03/2020 06/14/2020 documented as of this encounter (statuses as of 09/29/2021) [address]17-2021 History of Past illness Narrative* Problem Noted Date Resolved Date Aspiration pneumonia 05/30/2020 09/22/2020 Post-operative state 05/24/2020 06/14/2020 Shortness of breath 05/03/2020 06/14/2020 Chest pain 05/03/2020 06/14/2020 documented as of this encounter (statuses as of 10/20/2021) [address]17-2021 History of Past illness Narrative* Problem Noted Date Resolved Date Aspiration pneumonia 05/30/2020 09/22/2020 Post-operative state 05/24/2020 06/14/2020 Shortness of breath 05/03/2020 06/14/2020 Chest pain 05/03/2020 06/14/2020 documented as of this encounter (statuses as of 10/24/2021) [address]17-2021 History of Past illness Narrative* Problem Noted Date Resolved Date Aspiration pneumonia 05/30/2020 09/22/2020 Post-operative state 05/24/2020 06/14/2020 Shortness of breath 05/03/2020 06/14/2020 Chest pain 05/03/2020 06/14/2020 documented as of this encounter (statuses as of 10/27/2021) [address]17-2021 History of Past illness Narrative* Problem Noted Date Resolved Date Aspiration pneumonia 05/30/2020 09/22/2020 Post-operative state 05/24/2020 06/14/2020 Shortness of breath 05/03/2020 06/14/2020 Chest pain 05/03/2020 06/14/2020 documented as of this encounter (statuses as of 10/28/2021) [address]17-2021 History of Past illness Narrative* Problem Noted Date Resolved Date Aspiration pneumonia 05/30/2020 09/22/2020 Post-operative state 05/24/2020 06/14/2020 Shortness of breath 05/03/2020 06/14/2020 Chest pain 05/03/2020 06/14/2020 documented as of this encounter (statuses as of 11/03/2021) [address]17-2021 History of Past illness Narrative* Problem Noted Date Resolved Date Aspiration pneumonia 05/30/2020 09/22/2020 Post-operative state 05/24/2020 06/14/2020 Shortness of breath 05/03/2020 06/14/2020 Chest pain 05/03/2020 06/14/2020 documented as of this encounter (statuses as of 11/03/2021) [address]17-2021 History of Past illness Narrative* Problem Noted Date Resolved Date Aspiration pneumonia 05/30/2020 09/22/2020 Post-operative state 05/24/2020 06/14/2020 Shortness of breath 05/03/2020 06/14/2020 Chest pain 05/03/2020 06/14/2020 documented as of this encounter (statuses as of 11/10/2021) [address]17-2021 History of Past illness Narrative* Problem Noted Date Resolved Date Aspiration pneumonia 05/30/2020 09/22/2020 Post-operative state 05/24/2020 06/14/2020 Shortness of breath 05/03/2020 06/14/2020 Chest pain 05/03/2020 06/14/2020 documented as of this encounter (statuses as of 11/29/2021) [address]17-2021 History of Past illness Narrative* Problem Noted Date Resolved Date Aspiration pneumonia 05/30/2020 09/22/2020 Post-operative state 05/24/2020 06/14/2020 Shortness of breath 05/03/2020 06/14/2020 Chest pain 05/03/2020 06/14/2020 documented as of this encounter (statuses as of 12/06/2021) [address]17-2021 History of Past illness Narrative* Problem Noted Date Resolved Date Aspiration pneumonia 05/30/2020 09/22/2020 Post-operative state 05/24/2020 06/14/2020 Shortness of breath 05/03/2020 06/14/2020 Chest pain 05/03/2020 06/14/2020 documented as of this encounter (statuses as of 12/08/2021) [address]17-2021 History of Past illness Narrative* Problem Noted Date Resolved Date Aspiration pneumonia 05/30/2020 09/22/2020 Post-operative state 05/24/2020 06/14/2020 Shortness of breath 05/03/2020 06/14/2020 Chest pain 05/03/2020 06/14/2020 documented as of this encounter (statuses as of 12/27/2021) [address]17-2021 History of Past illness Narrative* Problem Noted Date Resolved Date Aspiration pneumonia 05/30/2020 09/22/2020 Post-operative state 05/24/2020 06/14/2020 Shortness of breath 05/03/2020 06/14/2020 Chest pain 05/03/2020 06/14/2020 documented as of this encounter (statuses as of 12/27/2021) [address]17-2021 History of Past illness Narrative* Problem Noted Date Resolved Date Aspiration pneumonia 05/30/2020 09/22/2020 Post-operative state 05/24/2020 06/14/2020 Shortness of breath 05/03/2020 06/14/2020 Chest pain 05/03/2020 06/14/2020 documented as of this encounter (statuses as of 01/19/2022) [address]17-2021 History of Past illness Narrative* Problem Noted Date Resolved Date Aspiration pneumonia 05/30/2020 09/22/2020 Post-operative state 05/24/2020 06/14/2020 Shortness of breath 05/03/2020 06/14/2020 Chest pain 05/03/2020 06/14/2020 documented as of this encounter (statuses as of 01/19/2022) [address]17-2021 History of Past illness Narrative* Problem Noted Date Resolved Date Aspiration pneumonia 05/30/2020 09/22/2020 Post-operative state 05/24/2020 06/14/2020 Shortness of breath 05/03/2020 06/14/2020 Chest pain 05/03/2020 06/14/2020 documented as of this encounter (statuses as of 01/20/2022) [address]17-2021 History of Past illness Narrative* Problem Noted Date Resolved Date Aspiration pneumonia 05/30/2020 09/22/2020 Post-operative state 05/24/2020 06/14/2020 Shortness of breath 05/03/2020 06/14/2020 Chest pain 05/03/2020 06/14/2020 documented as of this encounter (statuses as of 02/13/2022) [address]17-2021 History of Past illness Narrative* Problem Noted Date Resolved Date Aspiration pneumonia 05/30/2020 09/22/2020 Post-operative state 05/24/2020 06/14/2020 Shortness of breath 05/03/2020 06/14/2020 Chest pain 05/03/2020 06/14/2020 documented as of this encounter (statuses as of 03/10/2022) [address]17-2021 History of Past illness Narrative* Problem Noted Date Resolved Date Aspiration pneumonia 05/30/2020 09/22/2020 Post-operative state 05/24/2020 06/14/2020 Shortness of breath 05/03/2020 06/14/2020 Chest pain 05/03/2020 06/14/2020 documented as of this encounter (statuses as of 03/13/2022) [address]17-2021 History of Past illness Narrative* Problem Noted Date Resolved Date Aspiration pneumonia 05/30/2020 09/22/2020 Post-operative state 05/24/2020 06/14/2020 Shortness of breath 05/03/2020 06/14/2020 Chest pain 05/03/2020 06/14/2020 documented as of this encounter (statuses as of 03/31/2022) [address]17-2021 History of Past illness Narrative* Problem Noted Date Resolved Date Aspiration pneumonia 05/30/2020 09/22/2020 Post-operative state 05/24/2020 06/14/2020 Shortness of breath 05/03/2020 06/14/2020 Chest pain 05/03/2020 06/14/2020 documented as of this encounter (statuses as of 04/05/2022) [facility]-17-2021 History of Past illness Narrative* Problem Noted Date Resolved Date Aspiration pneumonia 05/30/2020 09/22/2020 Post-operative state 05/24/2020 06/14/2020 Shortness of breath 05/03/2020 06/14/2020 Chest pain 05/03/2020 06/14/2020 documented as of this encounter (statuses as of 05/03/2022) [facility]-17-2021 History of Past illness Narrative* Problem Noted Date Resolved Date Aspiration pneumonia 05/30/2020 09/22/2020 Post-operative state 05/24/2020 06/14/2020 Shortness of breath 05/03/2020 06/14/2020 Chest pain 05/03/2020 06/14/2020 documented as of this encounter (statuses as of 05/18/2022) [address]17-2021 History of Past illness Narrative* Problem Noted Date Resolved Date Aspiration pneumonia 05/30/2020 09/22/2020 Post-operative state 05/24/2020 06/14/2020 Shortness of breath 05/03/2020 06/14/2020 Chest pain 05/03/2020 06/14/2020 documented as of this encounter (statuses as of 07/12/2022) [facility]17-2021 History of Past illness Narrative* Problem Noted Date Resolved Date Aspiration pneumonia 05/30/2020 09/22/2020 Post-operative state 05/24/2020 06/14/2020 Shortness of breath 05/03/2020 06/14/2020 Chest pain 05/03/2020 06/14/2020 documented as of this encounter (statuses as of 07/18/2022) [facility]17-2021 History of Past illness Narrative* Problem Noted Date Resolved Date Aspiration pneumonia 05/30/2020 09/22/2020 Post-operative state 05/24/2020 06/14/2020 Shortness of breath 05/03/2020 06/14/2020 Chest pain 05/03/2020 06/14/2020 documented as of this encounter (statuses as of 07/25/2022) [address]17-2021 History of Past illness Narrative* Problem Noted Date Resolved Date Aspiration pneumonia 05/30/2020 09/22/2020 Post-operative state 05/24/2020 06/14/2020 Shortness of breath 05/03/2020 06/14/2020 Chest pain 05/03/2020 06/14/2020 documented as of this encounter (statuses as of 07/27/2022) [address]17-2021 History of Past illness Narrative* Problem Noted Date Resolved Date Aspiration pneumonia 05/30/2020 09/22/2020 Post-operative state 05/24/2020 06/14/2020 Shortness of breath 05/03/2020 06/14/2020 Chest pain 05/03/2020 06/14/2020 documented as of this encounter (statuses as of 08/03/2022) [place] [id number] History of Past illness Narrative* Problem Noted Date Resolved Date Aspiration pneumonia 05/30/2020 09/22/2020 Post-operative state 05/24/2020 06/14/2020 Shortness of breath 05/03/2020 06/14/2020 Chest pain 05/03/2020 06/14/2020 documented as of this encounter (statuses as of 08/10/2022) [address]17-2021 History of Past illness Narrative* Problem Noted Date Resolved Date Aspiration pneumonia 05/30/2020 09/22/2020 Post-operative state 05/24/2020 06/14/2020 Shortness of breath 05/03/2020 06/14/2020 Chest pain 05/03/2020 06/14/2020 documented as of this encounter (statuses as of 08/10/2022) [address]17-2021 History of Past illness Narrative* Problem Noted Date Resolved Date Aspiration pneumonia 05/30/2020 09/22/2020 Post-operative state 05/24/2020 06/14/2020 Shortness of breath 05/03/2020 06/14/2020 Chest pain 05/03/2020 06/14/2020 documented as of this encounter (statuses as of 08/14/2022) [facility]-17-2021 History of Past illness Narrative* Problem Noted Date Resolved Date Aspiration pneumonia 05/30/2020 09/22/2020 Post-operative state 05/24/2020 06/14/2020 Shortness of breath 05/03/2020 06/14/2020 Chest pain 05/03/2020 06/14/2020 documented as of this encounter (statuses as of 08/25/2022) [address]17-2021 History of Past illness Narrative* Problem Noted Date Resolved Date Aspiration pneumonia 05/30/2020 09/22/2020 Post-operative state 05/24/2020 06/14/2020 Shortness of breath 05/03/2020 06/14/2020 Chest pain 05/03/2020 06/14/2020 documented as of this encounter (statuses as of 09/11/2022) [facility]-17-2021 History of Past illness Narrative* Problem Noted Date Resolved Date Aspiration pneumonia 05/30/2020 09/22/2020 Post-operative state 05/24/2020 06/14/2020 Shortness of breath 05/03/2020 06/14/2020 Chest pain 05/03/2020 06/14/2020 documented as of this encounter (statuses as of 09/22/2022) [address]17-2021 History of Past illness Narrative* Problem Noted Date Resolved Date Aspiration pneumonia 05/30/2020 09/22/2020 Post-operative state 05/24/2020 06/14/2020 Shortness of breath 05/03/2020 06/14/2020 Chest pain 05/03/2020 06/14/2020 documented as of this encounter (statuses as of 10/12/2022) [facility]17-2021 History of Past illness Narrative* Problem Noted Date Resolved Date Aspiration pneumonia 05/30/2020 09/22/2020 Post-operative state 05/24/2020 06/14/2020 Shortness of breath 05/03/2020 06/14/2020 Chest pain 05/03/2020 06/14/2020 documented as of this encounter (statuses as of 10/14/2022) [facility]17-2021 History of Past illness Narrative* Problem Noted Date Resolved Date Aspiration pneumonia 05/30/2020 09/22/2020 Post-operative state 05/24/2020 06/14/2020 Shortness of breath 05/03/2020 06/14/2020 Chest pain 05/03/2020 06/14/2020 documented as of this encounter (statuses as of 10/15/2022) [facility]17-2021 History of Past illness Narrative* Problem Noted Date Resolved Date Aspiration pneumonia 05/30/2020 09/22/2020 Post-operative state 05/24/2020 06/14/2020 Shortness of breath 05/03/2020 06/14/2020 Chest pain 05/03/2020 06/14/2020 documented as of this encounter (statuses as of 10/30/2022) [facility]17-2021 History of Past illness Narrative* Problem Noted Date Diagnosed Date Resolved Date Aspiration pneumonia 05/30/2020 021 Post-operative state 05/24/2020 021 Shortness of breath 05/03/2020 06/14/19 21 Chest pain 05/03/2020 06/14/2020 documented as of this encounter (statuses as of 12/19/2022) [facility]17-2021 History of Past illness Narrative* Problem Noted Date Diagnosed Date Resolved Date Aspiration pneumonia 05/30/2020 021 Post-operative state 05/24/2020 021 Shortness of breath 05/03/2020 06/14/19 21 Chest pain 05/03/2020 06/14/2020 documented as of this encounter (statuses as of 01/10/2023) [address]17-2021 History of Past illness Narrative* Problem Noted Date Diagnosed Date Resolved Date Aspiration pneumonia 05/30/2020 021 Post-operative state 05/24/2020 021 Shortness of breath 05/03/2020 06/14/19 21 Chest pain 05/03/2020 06/14/2020 documented as of this encounter (statuses as of 01/10/2023) [facility]17-2021 History of Past illness Narrative* Problem Noted Date Diagnosed Date Resolved Date Aspiration pneumonia 05/30/2020 021 Post-operative state 05/24/2020 021 Shortness of breath 05/03/2020 06/14/19 21 Chest pain 05/03/2020 06/14/2020 documented as of this encounter (statuses as of 01/12/2023) [facility]17-2021 History of Past illness Narrative* Problem Noted Date Diagnosed Date Resolved Date Aspiration pneumonia 05/30/2020 021 Post-operative state 05/24/2020 021 Shortness of breath 05/03/2020 06/14/19 21 Chest pain 05/03/2020 06/14/2020 documented as of this encounter (statuses as of 02/21/2023) [facility]17-2021 History of Past illness Narrative* Problem Noted Date Diagnosed Date Resolved Date Aspiration pneumonia 05/30/2020 021 Post-operative state 05/24/2020 021 Shortness of breath 05/03/2020 06/14/19 21 Chest pain 05/03/2020 06/14/2020 documented as of this encounter (statuses as of 03/18/2023) [facility]17-2021 History of Past illness Narrative* Problem Noted Date Diagnosed Date Resolved Date Aspiration pneumonia 05/30/2020 021 Post-operative state 05/24/2020 021 Shortness of breath 05/03/2020 06/14/19 21 Chest pain 05/03/2020 06/14/2020 documented as of this encounter (statuses as of 03/18/2023) [facility]17[facility]2021 History of Past illness Narrative* Problem Noted Date Diagnosed Date Resolved Date Aspiration pneumonia 05/30/2020 021 Post-operative state 05/24/2020 021 Shortness of breath 05/03/2020 06/14/19 21 Chest pain 05/03/2020 06/14/2020 documented as of this encounter (statuses as of 03/18/2023) [facility]17-2021 History of Past illness Narrative* Problem Noted Date Diagnosed Date Resolved Date Aspiration pneumonia 05/30/2020 021 Post-operative state 05/24/2020 021 Shortness of breath 05/03/2020 06/14/19 21 Chest pain 05/03/2020 06/14/2020 documented as of this encounter (statuses as of 03/18/2023) [facility]17-2021 History of Past illness Narrative* Problem Noted Date Diagnosed Date Resolved Date Aspiration pneumonia 05/30/2020 021 Post-operative state 05/24/2020 021 Shortness of breath 05/03/2020 06/14/19 21 Chest pain 05/03/2020 06/14/2020 documented as of this encounter (statuses as of 03/20/2023) [facility]17-2021 History of Past illness Narrative* Problem Noted Date Diagnosed Date Resolved Date Aspiration pneumonia 05/30/2020 021 Post-operative state 05/24/2020 021 Shortness of breath 05/03/2020 06/14/19 21 Chest pain 05/03/2020 06/14/2020 documented as of this encounter (statuses as of 04/10/2023) [facility]17-2021 History of Past illness Narrative* Problem Noted Date Diagnosed Date Resolved Date Aspiration pneumonia 05/30/2020 021 Post-operative state 05/24/2020 021 Shortness of breath 05/03/2020 06/14/19 21 Chest pain 05/03/2020 06/14/2020 documented as of this encounter (statuses as of 04/25/2023) [facility]17-2021 History of Past illness Narrative* Problem Noted Date Diagnosed Date Resolved Date Aspiration pneumonia 05/30/2020 021 Post-operative state 05/24/2020 021 Shortness of breath 05/03/2020 06/14/19 21 Chest pain 05/03/2020 06/14/2020 documented as of this encounter (statuses as of 04/27/2023) [facility]17-2021 History of Past illness Narrative* Problem Noted Date Diagnosed Date Resolved Date Aspiration pneumonia 05/30/2020 021 Post-operative state 05/24/2020 021 Shortness of breath 05/03/2020 06/14/19 21 Chest pain 05/03/2020 06/14/2020 documented as of this encounter (statuses as of 07/13/2023) [facility]17-2021 History of Past illness Narrative* Problem Noted Date Diagnosed Date Resolved Date Aspiration pneumonia 05/30/2020 021 Post-operative state 05/24/2020 021 Shortness of breath 05/03/2020 06/14/19 21 Chest pain 05/03/2020 06/14/2020 documented as of this encounter (statuses as of 07/20/2023) [facility]17-2021 History of Past illness Narrative* Problem Noted Date Diagnosed Date Resolved Date Aspiration pneumonia 05/30/2020 021 Post-operative state 05/24/2020 021 Shortness of breath 05/03/2020 06/14/19 21 Chest pain 05/03/2020 06/14/2020 documented as of this encounter (statuses as of 07/25/2023) [facility]17-2021 History of Past illness Narrative* Problem Noted Date Diagnosed Date Resolved Date Aspiration pneumonia 05/30/2020 021 Post-operative state 05/24/2020 021 Shortness of breath 05/03/2020 06/14/19 21 Chest pain 05/03/2020 06/14/2020 documented as of this encounter (statuses as of 07/25/2023) [address]17-2021 History of Past illness Narrative* Problem Noted Date Diagnosed Date Resolved Date Aspiration pneumonia 05/30/2020 021 Post-operative state 05/24/2020 021 Shortness of breath 05/03/2020 06/14/19 21 Chest pain 05/03/2020 06/14/2020 documented as of this encounter (statuses as of 07/26/2023) [address]17-2021 History of Past illness Narrative* Problem Noted Date Diagnosed Date Resolved Date Aspiration pneumonia 05/30/2020 021 Post-operative state 05/24/2020 021 Shortness of breath 05/03/2020 06/14/19 21 Chest pain 05/03/2020 06/14/2020 documented as of this encounter (statuses as of 07/28/2023) [facility]17-2021 History of Past illness Narrative* Problem Noted Date Diagnosed Date Resolved Date Aspiration pneumonia 05/30/2020 021 Post-operative state 05/24/2020 021 Shortness of breath 05/03/2020 06/14/19 21 Chest pain 05/03/2020 06/14/2020 documented as of this encounter (statuses as of 08/06/2023) [facility]17-2021 History of Past illness Narrative* Problem Noted Date Diagnosed Date Resolved Date Aspiration pneumonia 05/30/2020 021 Post-operative state 05/24/2020 021 Shortness of breath 05/03/2020 06/14/19 21 Chest pain 05/03/2020 06/14/2020 documented as of this encounter (statuses as of 08/07/2023) [facility]17-2021 History of Past illness Narrative* Problem Noted Date Diagnosed Date Resolved Date Aspiration pneumonia 05/30/2020 021 Post-operative state 05/24/2020 021 Shortness of breath 05/03/2020 06/14/19 21 Chest pain 05/03/2020 06/14/2020 documented as of this encounter (statuses as of 08/08/2023) [address]17-2021 History of Past illness Narrative* Problem Noted Date Diagnosed Date Resolved Date Aspiration pneumonia 05/30/2020 021 Post-operative state 05/24/2020 021 Shortness of breath 05/03/2020 06/14/19 21 Chest pain 05/03/2020 06/14/2020 documented as of this encounter (statuses as of 08/23/2023) [facility]17-2021 History of Past illness Narrative* Problem Noted Date Diagnosed Date Resolved Date Aspiration pneumonia 05/30/2020 021 Post-operative state 05/24/2020 021 Shortness of breath 05/03/2020 06/14/19 21 Chest pain 05/03/2020 06/14/2020 documented as of this encounter (statuses as of 08/24/2023) [facility]17-2021 History of Past illness Narrative* Problem Noted Date Diagnosed Date Resolved Date Aspiration pneumonia 05/30/2020 021 Post-operative state 05/24/2020 021 Shortness of breath 05/03/2020 06/14/19 21 Chest pain 05/03/2020 06/14/2020 documented as of this encounter (statuses as of 08/28/2023) [facility]2020 History of Present illness Narrative* [facility] - 04/27/2020 1:00 PM EST RADIOLOGY SERVICE PROGRESS NOTE SERVICE DATE: 04/27/2020 SERVICE TIME: 1:10 PM PATIENT IDENTITY VERIFICATION COMPLETED USING TWO (2) STANDARD IDENTIFIERS: Name and Date of confirmed by patient verbally FALL SCREENING: Has the patient had 2 falls in the last year or 1 fall with injury or currently using an Ambulatory Assistive Device (Walker, Cane, Wheelchair, Crutches, etc.)? No PATIENT GENDER DATA: .female : No ALLERGIES: Reviewed and unchanged MEDICATIONS REVIEWED: Not applicable PATIENT RELEVANT IMPLANT DATA REVIEWED: Not Applicable CREATININE: Creatinine Date Value Ref Range Status 03/09/2020 0.58 0.58 - 0.96 mg/dL Final 02/11/2013 0.60 (L) 0.70 - 1.40 mg/dL Final eGFR-All Other Races Date Value Ref Range Status 03/09/2020 >60 . Final Comment: eGFR (Estimated GFR) Units of measure: mL/min/1.73 meters squared eGFR is derived from the reexpressed MDRD Study equation using the following parameters: serum creatinine, age, gender and race. The creatinine assay has been calibrated to be traceable to IDMS. An eGFR <60 mL/min/1.73m2 for >3 months is consistent with chronic kidney disease. Refer to KDOQI guidelines for clinical interpretation. In patients with unstable renal function, e.g. those with acute kidney injury, the eGFR may not accurately reflect actual GFR. eGFR- Date Value Ref Range Status 03/09/2020 >60 Final P.O.C.T. RESULTS: N/A April 27, [address] PERFORMED: No IV SITE: Ambulatory: A peripheral IV was started in the Right antecubital site with a Angio cath: 22 gauge. POST EXAM PIV STATUS: Discontinued PROCEDURE TYPE: NM Stress: 13.0mCi [id number] was administered IV for Rest Imaging at 1307 by [facility]. 35.8 mCi [id number] was administered IV for Stress Imaging at 1405 by [facility]. PATIENT DISCHARGED TO: Ambulatory patient, left [place] department area. A Diagnostic radioactive procedure has taken place, with no further precautions necessary other than routine body substance precautions. More information regarding radiation safety can be found usingthis link: [email or web address] SIGNATURE: [facility] PATIENT NAME: Sandra Schmitz DATE: April 27, 2020 TIME: 1:10 PM PAGER/CONTACT [facility]: [facility] Diagnosis Left shoulder pain, unspecified chronicity Lateral epicondylitis of left elbow Lateral epicondylitis of elbow [facility] Diagnosis Encounter for screening mammogram for breast cancer [facility] [place] [facility] Diagnosis Chronic left shoulder pain- Primary Pain in joint, shoulder region Left elbow pain Pain in joint, upper arm Primary hypertension Unspecified essential hypertension Mixed hyperlipidemia Hypokalemia Hypopotassemia Screening for lipid disorders Screening for diabetes mellitus Screening for thyroid disorder Encounter for vitamin deficiency screening Screening for other and unspecified endocrine, nutritional, metabolic, and immunity disorders Body mass index (BMI) 34.0-34.9, adult Abnormal finding of blood chemistry, unspecified documented in this encounter [facility] note* Diagnosis Hypothyroidism, unspecified type- Primary documented in this encounter [facility] note* Diagnosis Rib pain- Primary Chest pain, unspecified Somatic dysfunction of head region Somatic dysfunction of spine, cervical Nonallopathic lesion of cervical region, not elsewhere classified Somatic dysfunction of rib Somatic dysfunction of spine, thoracic Nonallopathic lesion of thoracic region, not elsewhere classified Neck pain Cervicalgia documented in this encounter [facility] note* Diagnosis Diverticulitis- Primary Diverticulitis of colon (without mention of hemorrhage) RLQ abdominal pain Abdominal pain, right lower quadrant Lower abdominal pain Abdominal pain, other specified site documented in this encounter [facility] note* Diagnosis Diverticulitis Diverticulitis of colon (without mention of hemorrhage) RLQ abdominal pain Abdominal pain, right lower quadrant Lower abdominal pain Abdominal pain, other specified site Stable angina (HCC) Other and unspecified angina pectoris Cardiomyopathy, unspecified type (HCC) Dyspnea on exertion Other dyspnea and respiratory abnormality documented in this encounter [facility] note* Diagnosis Generalized abdominal pain- Primary Abdominal pain, generalized Bloating Flatulence, eructation, and gas pain Belching Flatulence, eructation, and gas pain History of colonic polyps Personal history of colonic polyps Chronic diastolic congestive heart failure (HCC) Chronic diastolic heart failure Stable angina (HCC) Other and unspecified angina pectoris Cardiomyopathy, unspecified type (HCC) Dyspnea on exertion Other dyspnea and respiratory abnormality documented in this encounter [facility] note* Diagnosis Chronic systolic CHF (congestive heart failure) (HCC)- Primary Chronic systolic heart failure documented in this encounter [facility] note* Diagnosis Abdominal bloating Flatulence, eructation, and gas pain Belching Flatulence, eructation, and gas pain Abdominal pain, unspecified abdominal location documented in this encounter [facility] note* Diagnosis Diverticulosis- Primary Diverticulosis of colon (without mention of hemorrhage) History of Clostridium difficile colitis Personal history of other diseases of digestive system Abdominal bloating Flatulence, eructation, and gas pain documented in this encounter [facility] note* Diagnosis Hypothyroidism, unspecified type documented in this encounter [facility] note* Diagnosis Abdominal bloating- Primary Flatulence, eructation, and gas pain Belching Flatulence, eructation, and gas pain Abdominal pain, unspecified abdominal location [facility] Routine physical examination- Primary Routine general medical examination at a health care facility Primary hypertension Unspecified essential hypertension Mixed hyperlipidemia Coronary artery disease involving [place] coronary artery of [place] heart with other form of angina pectoris (HCC) Vitamin D deficiency Unspecified vitamin D deficiency Hypothyroidism, unspecified type [facility] Diagnosis Cardiomegaly- Primary Primary hypertension Unspecified essential hypertension Chronic diastolic congestive heart failure (HCC) Chronic diastolic heart failure Palpitations Acute on chronic systolic CHF (congestive heart failure) (HCC) Acute on chronic systolic heart failure [facility] Diagnosis Rib pain on right side- Primary Chest pain, unspecified Somatic dysfunction of spine, cervical Nonallopathic lesion of cervical region, not elsewhere classified Somatic dysfunction of rib Somatic dysfunction of spine, thoracic Nonallopathic lesion of thoracic region, not elsewhere classified [facility] Diagnosis Chronic right-sided thoracic back pain- Primary Somatic dysfunction of spine, cervical Nonallopathic lesion of cervical region, not elsewhere classified Somatic dysfunction of spine, thoracic Nonallopathic lesion of thoracic region, not elsewhere classified Somatic dysfunction of rib Rib pain on right side Chest pain, unspecified [facility] Diagnosis Hypothyroidism, unspecified type- Primary Primary hypertension Unspecified essential hypertension Mixed hyperlipidemia Vitamin D deficiency Unspecified vitamin D deficiency Asymptomatic menopause Encounter for vitamin deficiency screening Screening for other and unspecified endocrine, nutritional, metabolic, and immunity disorders Screening for diabetes mellitus Elevated glucose Other abnormal glucose Encounter for immunization Need for other specified prophylactic vaccination against single bacterial disease Screening for osteoporosis Special screening for osteoporosis Encounter for screening for osteoporosis Special screening for osteoporosis [facility] Diagnosis Hypothyroidism, unspecified type [facility] Diagnosis Chronic bilateral thoracic back pain- Primary Somatic dysfunction of rib Somatic dysfunction of spine, thoracic Nonallopathic lesion of thoracic region, not elsewhere classified Somatic dysfunction of spine, cervical Nonallopathic lesion of cervical region, not elsewhere classified Rib pain on right side Chest pain, unspecified Somatic dysfunction of head region Primary hypertension- Primary Unspecified essential hypertension Palpitations Mixed hyperlipidemia [facility]* Diagnosis Dysuria- Primary Urticaria Urticaria, unspecified Food allergy Other adverse food reactions, not elsewhere classified Allergic urticaria Somatic dysfunction of spine, thoracic Nonallopathic lesion of thoracic region, not elsewhere classified Somatic dysfunction of rib Somatic dysfunction of spine, cervical Nonallopathic lesion of cervical region, not elsewhere classified Rib pain on right side Chest pain, unspecified Somatic dysfunction of head region Primary hypertension- Primary Unspecified essential hypertension Palpitations Mixed hyperlipidemia [facility] [place] [facility] Diagnosis Primary hypertension- Primary Unspecified essential hypertension Palpitations Mixed hyperlipidemia [facility] [place] [facility]* Diagnosis Chronic neck pain- Primary Cervicalgia Abdominal distension (gaseous) Flatulence, eructation, and gas pain Nausea Nausea alone RUQ abdominal pain Abdominal pain, right upper quadrant Somatic dysfunction of spine, cervical Nonallopathic lesion of cervical region, not elsewhere classified Somatic dysfunction of rib Somatic dysfunction of head region [facility] [place] [facility]* Diagnosis Chronic bilateral thoracic back pain- Primary Somatic dysfunction of spine, cervical Nonallopathic lesion of cervical region, not elsewhere classified Somatic dysfunction of rib Somatic dysfunction of head region Chronic neck pain Cervicalgia Somatic dysfunction of spine, thoracic Nonallopathic lesion of thoracic region, not elsewhere classified [facility] [place] [facility]* Diagnosis Acute cough- Primary Sore throat Acute pharyngitis [facility] [place] [facility]* Diagnosis Primary hypertension Unspecified essential hypertension [facility] [place] [facility]* Diagnosis Hypothyroidism, unspecified type- Primary Somatic dysfunction of spine, cervical Nonallopathic lesion of cervical region, not elsewhere classified Somatic dysfunction of rib Somatic dysfunction of head region Chronic bilateral thoracic back pain Chronic neck pain Cervicalgia Neck fullness Swelling, mass, or lump in head and neck [facility] [place] [facility]* Diagnosis Hypothyroidism, unspecified type [facility] [place] [facility]* Diagnosis Screening for osteoporosis Special screening for osteoporosis Asymptomatic menopause [facility] [place] [facility]* Diagnosis SOB (shortness of breath) Shortness of breath [facility] [place] [facility]* Diagnosis Abnormal electrocardiogram Nonspecific abnormal electrocardiogram (ECG) (EKG) LBBB (left bundle branch block) Other left bundle branch block [facility] [place] [facility]* Diagnosis Abdominal distension (gaseous) Flatulence, eructation, and gas pain Nausea Nausea alone RUQ abdominal pain Abdominal pain, right upper quadrant [facility] [place] [facility]* Diagnosis Primary hypertension Unspecified essential hypertension Chronic diastolic congestive heart failure (HCC) Chronic diastolic heart failure [facility] [place] [facility] Diagnosis Chronic diastolic congestive heart failure (HCC)- Primary Chronic diastolic heart failure Hypothyroidism, acquired Unspecified hypothyroidism Vitamin D deficiency Unspecified vitamin D deficiency Fatigue, unspecified type Acute hypoxic respiratory failure (HCC) Chronic bronchitis, unspecified chronic bronchitis type (HCC) Atrial fibrillation, unspecified type (HCC) SVT (supraventricular tachycardia) (HCC) Other specified cardiac dysrhythmias Homozygous Factor V Leiden mutation (HCC) Primary hypercoagulable state [facility] [place] [facility]* Diagnosis LBBB (left bundle branch block)- Primary Other left bundle branch block Presence of cardiac resynchronization therapy defibrillator (CUT PLUG PACKER-D) Acute on chronic systolic CHF (congestive heart failure) (HCC) Acute on chronic systolic heart failure [facility] Diagnosis Vagina, candidiasis- Primary Candidiasis of vulva and vagina Burning with urination Dysuria 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 Acute cough Laryngopharyngeal reflux (LPR) Other diseases of larynx [facility]* Diagnosis Chronic systolic congestive heart failure (HCC)- Primary Chronic systolic heart failure Nonischemic cardiomyopathy (HCC) Other primary cardiomyopathies Mixed hyperlipidemia LBBB (left bundle branch block) Other left bundle branch block Presence of cardiac resynchronization therapy defibrillator (CUT PLUG PACKER-D) Primary hypertension Unspecified essential hypertension Coronary artery disease involving [place] coronary artery of [place] heart without angina pectoris Valvular heart disease Endocarditis, valve unspecified, unspecified cause [facility] [place] noteNo assessment information availableWOhio State [facility] Work Phone: Evaluation note* Diagnosis Foot pain, left- Primary Pain in limb Localized swelling of left foot Foot pain, left Pain in limb Localized swelling of left foot [facility] [place] [facility]* Diagnosis Repetitive stress injury- Primary Unspecified site of sprain and strain Venous insufficiency Unspecified venous (peripheral) insufficiency [facility]* Diagnosis Repetitive stress injury Unspecified site of sprain and strain [facility]* Diagnosis Acute on chronic systolic CHF (congestive heart failure) (HCC)- Primary Acute on chronic systolic heart failure Dilated cardiomyopathy (HCC) Other primary cardiomyopathies [facility] Diagnosis Acute non-recurrent pansinusitis- Primary [facility] Diagnosis Chronic systolic congestive heart failure (HCC)- Primary Chronic systolic heart failure Left bundle branch block Other left bundle branch block Nonischemic cardiomyopathy (HCC) Other primary cardiomyopathies Hypertension with heart disease [facility] Diagnosis Localized swelling of left foot- Primary Foot pain, left Pain in limb 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 [facility] Diagnosis Hypothyroidism, acquired- Primary Unspecified hypothyroidism 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 Word finding difficulty Problems with communication (including speech) New onset of headaches after age 51 Headache Leg cramping Cramp of limb Vitamin D deficiency Unspecified vitamin D deficiency Anemia, unspecified type Somatic dysfunction of head region Somatic dysfunction of spine, cervical Nonallopathic lesion of cervical region, not elsewhere classified Somatic dysfunction of rib Chronic bilateral thoracic back pain Somatic dysfunction of spine, thoracic Nonallopathic lesion of thoracic region, not elsewhere classified Somatic dysfunction of pelvic region Nonallopathic lesion of pelvic region, not elsewhere classified [facility] Diagnosis Presence of cardiac resynchronization therapy defibrillator (CUT PLUG PACKER-D)- Primary Non-ischemic cardiomyopathy (HCC) Other primary cardiomyopathies LBBB (left bundle branch block) Other left bundle branch block [facility] Diagnosis Word finding difficulty Problems with communication (including speech) New onset of headaches after age 51 Headache [facility] Diagnosis Acute midline low back pain without sciatica- Primary [facility] Diagnosis Chronic systolic congestive heart failure (HCC) Chronic systolic heart failure [facility] Diagnosis Chronic bilateral thoracic back pain- Primary Somatic dysfunction of head region Somatic dysfunction of spine, cervical Nonallopathic lesion of cervical region, not elsewhere classified Somatic dysfunction of rib Somatic dysfunction of spine, thoracic Nonallopathic lesion of thoracic region, not elsewhere classified Somatic dysfunction of pelvic region Nonallopathic lesion of pelvic region, not elsewhere classified [facility] Diagnosis Pre-op evaluation- Primary Preoperative examination, unspecified Acute on chronic systolic CHF (congestive heart failure) (HCC) Acute on chronic systolic heart failure Essential hypertension Unspecified essential hypertension Obesity, Class I, BMI 30-34.9 Obesity, unspecified Hypothyroidism, unspecified type Homozygous Factor V Leiden mutation (HCC) Primary hypercoagulable state Pre-operative examination- Primary Preoperative examination, unspecified Colon cancer screening Special screening for malignant neoplasms, colon Chronic 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) Chronic combined systolic and diastolic heart failure Valvular heart disease Endocarditis, valve unspecified, unspecified cause Mixed hyperlipidemia Primary hypertension Unspecified essential hypertension Palpitations Diverticulitis Diverticulitis of colon (without mention of hemorrhage) Irritable bowel syndrome, unspecified type Kidney insufficiency Unspecified disorder of kidney and ureter Hypokalemia Hypopotassemia Hypothyroidism, unspecified type Homozygous Factor V Leiden mutation (HCC) Primary hypercoagulable state Obesity, Class I, BMI 30-34.9 Obesity, unspecified Chronic neck pain- Primary Cervicalgia Chronic bilateral thoracic back pain Somatic dysfunction of spine, thoracic Nonallopathic lesion of thoracic region, not elsewhere classified Somatic dysfunction of rib Somatic dysfunction of spine, cervical Nonallopathic lesion of cervical region, not elsewhere classified Somatic dysfunction of pelvic region Nonallopathic lesion of pelvic region, not elsewhere classified Somatic dysfunction of head region Somatic dysfunction of spine, lumbar Nonallopathic lesion of lumbar region, not elsewhere classified [facility] [place] [facility]* Diagnosis Pre-op evaluation- Primary Preoperative examination, unspecified Acute on chronic systolic CHF (congestive heart failure) (HCC) Acute on chronic systolic heart failure Essential hypertension Unspecified essential hypertension Obesity, Class I, BMI 30-34.9 Obesity, unspecified Hypothyroidism, unspecified type Homozygous Factor V Leiden mutation (HCC) Primary hypercoagulable state Pre-operative examination- Primary Preoperative examination, unspecified Colon cancer screening Special screening for malignant neoplasms, colon Chronic 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) Chronic combined systolic and diastolic heart failure Valvular heart disease Endocarditis, valve unspecified, unspecified cause Mixed hyperlipidemia Primary hypertension Unspecified essential hypertension Palpitations Diverticulitis Diverticulitis of colon (without mention of hemorrhage) Irritable bowel syndrome, unspecified type Kidney insufficiency Unspecified disorder of kidney and ureter Hypokalemia Hypopotassemia Hypothyroidism, unspecified type Homozygous Factor V Leiden mutation (HCC) Primary hypercoagulable state Obesity, Class I, BMI 30-34.9 Obesity, unspecified Foot pain, left Pain in limb Localized swelling of left foot [facility] [place] [facility]* Diagnosis Pre-op evaluation- Primary Preoperative examination, unspecified Acute on chronic systolic CHF (congestive heart failure) (HCC) Acute on chronic systolic heart failure Essential hypertension Unspecified essential hypertension Obesity, Class I, BMI 30-34.9 Obesity, unspecified Hypothyroidism, unspecified type Homozygous Factor V Leiden mutation (HCC) Primary hypercoagulable state Pre-operative examination- Primary Preoperative examination, unspecified Colon cancer screening Special screening for malignant neoplasms, colon Chronic 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) Chronic combined systolic and diastolic heart failure Valvular heart disease Endocarditis, valve unspecified, unspecified cause Mixed hyperlipidemia Primary hypertension Unspecified essential hypertension Palpitations Diverticulitis Diverticulitis of colon (without mention of hemorrhage) Irritable bowel syndrome, unspecified type Kidney insufficiency Unspecified disorder of kidney and ureter Hypokalemia Hypopotassemia Hypothyroidism, unspecified type Homozygous Factor V Leiden mutation (HCC) Primary hypercoagulable state Obesity, Class I, BMI 30-34.9 Obesity, unspecified Chronic cough Cough documented in this encounter [facility]* Diagnosis Pre-op evaluation- Primary Preoperative examination, unspecified Acute on chronic systolic CHF (congestive heart failure) (HCC) Acute on chronic systolic heart failure Essential hypertension Unspecified essential hypertension Obesity, Class I, BMI 30-34.9 Obesity, unspecified Hypothyroidism, unspecified type Homozygous Factor V Leiden mutation (HCC) Primary hypercoagulable state Pre-operative examination- Primary Preoperative examination, unspecified Colon cancer screening Special screening for malignant neoplasms, colon Chronic 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) Chronic combined systolic and diastolic heart failure Valvular heart disease Endocarditis, valve unspecified, unspecified cause Mixed hyperlipidemia Primary hypertension Unspecified essential hypertension Palpitations Diverticulitis Diverticulitis of colon (without mention of hemorrhage) Irritable bowel syndrome, unspecified type Kidney insufficiency Unspecified disorder of kidney and ureter Hypokalemia Hypopotassemia Hypothyroidism, unspecified type Homozygous Factor V Leiden mutation (HCC) Primary hypercoagulable state Obesity, Class I, BMI 30-34.9 Obesity, unspecified Hypothyroidism, acquired- Primary Unspecified hypothyroidism Chronic bilateral thoracic back pain Somatic dysfunction of spine, thoracic Nonallopathic lesion of thoracic region, not elsewhere classified Somatic dysfunction of spine, cervical Nonallopathic lesion of cervical region, not elsewhere classified Somatic dysfunction of rib Somatic dysfunction of spine, lumbar Nonallopathic lesion of lumbar region, not elsewhere classified Somatic dysfunction of head region [facility] [place] [facility]* Diagnosis Pre-op evaluation- Primary Preoperative examination, unspecified Acute on chronic systolic CHF (congestive heart failure) (HCC) Acute on chronic systolic heart failure Essential hypertension Unspecified essential hypertension Obesity, Class I, BMI 30-34.9 Obesity, unspecified Hypothyroidism, unspecified type Homozygous Factor V Leiden mutation (HCC) Primary hypercoagulable state Pre-operative examination- Primary Preoperative examination, unspecified Colon cancer screening Special screening for malignant neoplasms, colon Chronic 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) Chronic combined systolic and diastolic heart failure Valvular heart disease Endocarditis, valve unspecified, unspecified cause Mixed hyperlipidemia Primary hypertension Unspecified essential hypertension Palpitations Diverticulitis Diverticulitis of colon (without mention of hemorrhage) Irritable bowel syndrome, unspecified type Kidney insufficiency Unspecified disorder of kidney and ureter Hypokalemia Hypopotassemia Hypothyroidism, unspecified type Homozygous Factor V Leiden mutation (HCC) Primary hypercoagulable state Obesity, Class I, BMI 30-34.9 Obesity, unspecified Nonischemic cardiomyopathy (HCC)- Primary Other primary cardiomyopathies documented in this encounter [facility] note* Diagnosis Pre-op evaluation- Primary Preoperative examination, unspecified Acute on chronic systolic CHF (congestive heart failure) (HCC) Acute on chronic systolic heart failure Essential hypertension Unspecified essential hypertension Obesity, Class I, BMI 30-34.9 Obesity, unspecified Hypothyroidism, unspecified type Homozygous Factor V Leiden mutation (HCC) Primary hypercoagulable state Pre-operative examination- Primary Preoperative examination, unspecified Colon cancer screening Special screening for malignant neoplasms, colon Chronic 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) Chronic combined systolic and diastolic heart failure Valvular heart disease Endocarditis, valve unspecified, unspecified cause Mixed hyperlipidemia Primary hypertension Unspecified essential hypertension Palpitations Diverticulitis Diverticulitis of colon (without mention of hemorrhage) Irritable bowel syndrome, unspecified type Kidney insufficiency Unspecified disorder of kidney and ureter Hypokalemia Hypopotassemia Hypothyroidism, unspecified type Homozygous Factor V Leiden mutation (HCC) Primary hypercoagulable state Obesity, Class I, BMI 30-34.9 Obesity, unspecified Chronic left shoulder pain Pain in joint, shoulder region Left elbow pain Pain in joint, upper arm documented in this encounter [facility] note* Diagnosis Pre-op evaluation- Primary Preoperative examination, unspecified Acute on chronic systolic CHF (congestive heart failure) (HCC) Acute on chronic systolic heart failure Essential hypertension Unspecified essential hypertension Obesity, Class I, BMI 30-34.9 Obesity, unspecified Hypothyroidism, unspecified type Homozygous Factor V Leiden mutation (HCC) Primary hypercoagulable state Pre-operative examination- Primary Preoperative examination, unspecified Colon cancer screening Special screening for malignant neoplasms, colon Chronic 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) Chronic combined systolic and diastolic heart failure Valvular heart disease Endocarditis, valve unspecified, unspecified cause Mixed hyperlipidemia Primary hypertension Unspecified essential hypertension Palpitations Diverticulitis Diverticulitis of colon (without mention of hemorrhage) Irritable bowel syndrome, unspecified type Kidney insufficiency Unspecified disorder of kidney and ureter Hypokalemia Hypopotassemia Hypothyroidism, unspecified type Homozygous Factor V Leiden mutation (HCC) Primary hypercoagulable state Obesity, Class I, BMI 30-34.9 Obesity, unspecified Hypothyroidism, acquired- Primary Unspecified hypothyroidism Chronic bilateral thoracic back pain Somatic dysfunction of rib Somatic dysfunction of spine, cervical Nonallopathic lesion of cervical region, not elsewhere classified Somatic dysfunction of spine, thoracic Nonallopathic lesion of thoracic region, not elsewhere classified Somatic dysfunction of spine, lumbar Nonallopathic lesion of lumbar region, not elsewhere classified Somatic dysfunction of head region [facility] [place] [facility]* Diagnosis Pre-op evaluation- Primary Preoperative examination, unspecified Acute on chronic systolic CHF (congestive heart failure) (HCC) Acute on chronic systolic heart failure Essential hypertension Unspecified essential hypertension Obesity, Class I, BMI 30-34.9 Obesity, unspecified Hypothyroidism, unspecified type Homozygous Factor V Leiden mutation (HCC) Primary hypercoagulable state Chronic pain of right ankle Pre-operative examination- Primary Preoperative examination, unspecified Colon cancer screening Special screening for malignant neoplasms, colon Chronic 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) Chronic combined systolic and diastolic heart failure Valvular heart disease Endocarditis, valve unspecified, unspecified cause Mixed hyperlipidemia Primary hypertension Unspecified essential hypertension Palpitations Diverticulitis Diverticulitis of colon (without mention of hemorrhage) Irritable bowel syndrome, unspecified type Kidney insufficiency Unspecified disorder of kidney and ureter Hypokalemia Hypopotassemia Hypothyroidism, unspecified type Homozygous Factor V Leiden mutation (HCC) Primary hypercoagulable state Obesity, Class I, BMI 30-34.9 Obesity, unspecified [facility] [place] [facility]* Diagnosis Great toe pain, left Pre-op evaluation- Primary Preoperative examination, unspecified Acute on chronic systolic CHF (congestive heart failure) (HCC) Acute on chronic systolic heart failure Essential hypertension Unspecified essential hypertension Obesity, Class I, BMI 30-34.9 Obesity, unspecified Hypothyroidism, unspecified type Homozygous Factor V Leiden mutation (HCC) Primary hypercoagulable state Pre-operative examination- Primary Preoperative examination, unspecified Colon cancer screening Special screening for malignant neoplasms, colon Chronic 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) Chronic combined systolic and diastolic heart failure Valvular heart disease Endocarditis, valve unspecified, unspecified cause Mixed hyperlipidemia Primary hypertension Unspecified essential hypertension Palpitations Diverticulitis Diverticulitis of colon (without mention of hemorrhage) Irritable bowel syndrome, unspecified type Kidney insufficiency Unspecified disorder of kidney and ureter Hypokalemia Hypopotassemia Hypothyroidism, unspecified type Homozygous Factor V Leiden mutation (HCC) Primary hypercoagulable state Obesity, Class I, BMI 30-34.9 Obesity, unspecified [facility] [place] [facility]* Diagnosis Pre-op evaluation- Primary Preoperative examination, unspecified Acute on chronic systolic CHF (congestive heart failure) (HCC) Acute on chronic systolic heart failure Essential hypertension Unspecified essential hypertension Obesity, Class I, BMI 30-34.9 Obesity, unspecified Hypothyroidism, unspecified type Homozygous Factor V Leiden mutation (HCC) Primary hypercoagulable state Pre-operative examination- Primary Preoperative examination, unspecified Colon cancer screening Special screening for malignant neoplasms, colon Chronic 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) Chronic combined systolic and diastolic heart failure Valvular heart disease Endocarditis, valve unspecified, unspecified cause Mixed hyperlipidemia Primary hypertension Unspecified essential hypertension Palpitations Diverticulitis Diverticulitis of colon (without mention of hemorrhage) Irritable bowel syndrome, unspecified type Kidney insufficiency Unspecified disorder of kidney and ureter Hypokalemia Hypopotassemia Hypothyroidism, unspecified type Homozygous Factor V Leiden mutation (HCC) Primary hypercoagulable state Obesity, Class I, BMI 30-34.9 Obesity, unspecified Chronic systolic congestive heart failure (HCC)- Primary Chronic systolic heart failure Nonischemic cardiomyopathy (HCC) Other primary cardiomyopathies Left bundle branch block Other left bundle branch block Coronary artery disease involving [place] coronary artery of [place] heart without angina pectoris [facility] [place] [facility]* Diagnosis Pre-op evaluation- Primary Preoperative examination, unspecified Acute on chronic systolic CHF (congestive heart failure) (HCC) Acute on chronic systolic heart failure Essential hypertension Unspecified essential hypertension Obesity, Class I, BMI 30-34.9 Obesity, unspecified Hypothyroidism, unspecified type Homozygous Factor V Leiden mutation (HCC) Primary hypercoagulable state Pre-operative examination- Primary Preoperative examination, unspecified Colon cancer screening Special screening for malignant neoplasms, colon Chronic 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) Chronic combined systolic and diastolic heart failure Valvular heart disease Endocarditis, valve unspecified, unspecified cause Mixed hyperlipidemia Primary hypertension Unspecified essential hypertension Palpitations Diverticulitis Diverticulitis of colon (without mention of hemorrhage) Irritable bowel syndrome, unspecified type Kidney insufficiency Unspecified disorder of kidney and ureter Hypokalemia Hypopotassemia Hypothyroidism, unspecified type Homozygous Factor V Leiden mutation (HCC) Primary hypercoagulable state Obesity, Class I, BMI 30-34.9 Obesity, unspecified Suprapubic pain- Primary Abdominal pain, other specified site Somatic dysfunction of head region Chronic bilateral thoracic back pain Somatic dysfunction of rib Somatic dysfunction of spine, cervical Nonallopathic lesion of cervical region, not elsewhere classified Somatic dysfunction of spine, thoracic Nonallopathic lesion of thoracic region, not elsewhere classified Somatic dysfunction of pelvic region Nonallopathic lesion of pelvic region, not elsewhere classified Somatic dysfunction of spine, lumbar Nonallopathic lesion of lumbar region, not elsewhere classified [facility] Pre-op evaluation- Primary Preoperative examination, unspecified Acute on chronic systolic CHF (congestive heart failure) (HCC) Acute on chronic systolic heart failure Essential hypertension Unspecified essential hypertension Obesity, Class I, BMI 30-34.9 Obesity, unspecified Hypothyroidism, unspecified type Homozygous Factor V Leiden mutation (HCC) Primary hypercoagulable state Pre-operative examination- Primary Preoperative examination, unspecified Colon cancer screening Special screening for malignant neoplasms, colon Chronic 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) Chronic combined systolic and diastolic heart failure Valvular heart disease Endocarditis, valve unspecified, unspecified cause Mixed hyperlipidemia Primary hypertension Unspecified essential hypertension Palpitations Diverticulitis Diverticulitis of colon (without mention of hemorrhage) Irritable bowel syndrome, unspecified type Kidney insufficiency Unspecified disorder of kidney and ureter Hypokalemia Hypopotassemia Hypothyroidism, unspecified type Homozygous Factor V Leiden mutation (HCC) Primary hypercoagulable state Obesity, Class I, BMI 30-34.9 Obesity, unspecified Chronic bilateral thoracic back pain- Primary Somatic dysfunction of rib Somatic dysfunction of spine, thoracic Nonallopathic lesion of thoracic region, not elsewhere classified Somatic dysfunction of spine, cervical Nonallopathic lesion of cervical region, not elsewhere classified Somatic dysfunction of head region Somatic dysfunction of spine, lumbar Nonallopathic lesion of lumbar region, not elsewhere classified [facility] [place] [facility]* Diagnosis Pre-op evaluation- Primary Preoperative examination, unspecified Acute on chronic systolic CHF (congestive heart failure) (HCC) Acute on chronic systolic heart failure Essential hypertension Unspecified essential hypertension Obesity, Class I, BMI 30-34.9 Obesity, unspecified Hypothyroidism, unspecified type Homozygous Factor V Leiden mutation (HCC) Primary hypercoagulable state Pre-operative examination- Primary Preoperative examination, unspecified Colon cancer screening Special screening for malignant neoplasms, colon Chronic 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) Chronic combined systolic and diastolic heart failure Valvular heart disease Endocarditis, valve unspecified, unspecified cause Mixed hyperlipidemia Primary hypertension Unspecified essential hypertension Palpitations Diverticulitis Diverticulitis of colon (without mention of hemorrhage) Irritable bowel syndrome, unspecified type Kidney insufficiency Unspecified disorder of kidney and ureter Hypokalemia Hypopotassemia Hypothyroidism, unspecified type Homozygous Factor V Leiden mutation (HCC) Primary hypercoagulable state Obesity, Class I, BMI 30-34.9 Obesity, unspecified Chronic bilateral thoracic back pain- Primary Somatic dysfunction of rib Somatic dysfunction of spine, lumbar Nonallopathic lesion of lumbar region, not elsewhere classified Somatic dysfunction of spine, thoracic Nonallopathic lesion of thoracic region, not elsewhere classified Somatic dysfunction of spine, cervical Nonallopathic lesion of cervical region, not elsewhere classified Somatic dysfunction of pelvic region Nonallopathic lesion of pelvic region, not elsewhere classified Somatic dysfunction of head region [facility] [place] [facility]* Diagnosis Pre-op evaluation- Primary Preoperative examination, unspecified Acute on chronic systolic CHF (congestive heart failure) (HCC) Acute on chronic systolic heart failure Essential hypertension Unspecified essential hypertension Obesity, Class I, BMI 30-34.9 Obesity, unspecified Hypothyroidism, unspecified type Homozygous Factor V Leiden mutation (HCC) Primary hypercoagulable state Pre-operative examination- Primary Preoperative examination, unspecified Colon cancer screening Special screening for malignant neoplasms, colon Chronic 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) Chronic combined systolic and diastolic heart failure Valvular heart disease Endocarditis, valve unspecified, unspecified cause Mixed hyperlipidemia Primary hypertension Unspecified essential hypertension Palpitations Diverticulitis Diverticulitis of colon (without mention of hemorrhage) Irritable bowel syndrome, unspecified type Kidney insufficiency Unspecified disorder of kidney and ureter Hypokalemia Hypopotassemia Hypothyroidism, unspecified type Homozygous Factor V Leiden mutation (HCC) Primary hypercoagulable state Obesity, Class I, BMI 30-34.9 Obesity, unspecified Chronic bilateral thoracic back pain- Primary Somatic dysfunction of rib Somatic dysfunction of head region Somatic dysfunction of spine, thoracic Nonallopathic lesion of thoracic region, not elsewhere classified Somatic dysfunction of spine, lumbar Nonallopathic lesion of lumbar region, not elsewhere classified Somatic dysfunction of spine, cervical Nonallopathic lesion of cervical region, not elsewhere classified Somatic dysfunction of pelvic region Nonallopathic lesion of pelvic region, not elsewhere classified [facility] [place] [facility]* Diagnosis Pre-op evaluation- Primary Preoperative examination, unspecified Acute on chronic systolic CHF (congestive heart failure) (HCC) Acute on chronic systolic heart failure Essential hypertension Unspecified essential hypertension Obesity, Class I, BMI 30-34.9 Obesity, unspecified Hypothyroidism, unspecified type Homozygous Factor V Leiden mutation (HCC) Primary hypercoagulable state Pre-operative examination- Primary Preoperative examination, unspecified Colon cancer screening Special screening for malignant neoplasms, colon Chronic 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) Chronic combined systolic and diastolic heart failure Valvular heart disease Endocarditis, valve unspecified, unspecified cause Mixed hyperlipidemia Primary hypertension Unspecified essential hypertension Palpitations Diverticulitis Diverticulitis of colon (without mention of hemorrhage) Irritable bowel syndrome, unspecified type Kidney insufficiency Unspecified disorder of kidney and ureter Hypokalemia Hypopotassemia Hypothyroidism, unspecified type Homozygous Factor V Leiden mutation (HCC) Primary hypercoagulable state Obesity, Class I, BMI 30-34.9 Obesity, unspecified Vitamin B12 deficiency- Primary Other B-complex deficiencies Fatigue, unspecified type Lightheadedness Dizziness and giddiness Acute cough Chronic 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) Chronic combined systolic and diastolic heart failure Nausea Nausea alone Hypothyroidism, acquired Unspecified hypothyroidism Anemia, unspecified type Vitamin D deficiency Unspecified vitamin D deficiency Nonischemic cardiomyopathy (HCC) Other primary cardiomyopathies [facility] [place] [facility]* Diagnosis Pre-op evaluation- Primary Preoperative examination, unspecified Acute on chronic systolic CHF (congestive heart failure) (HCC) Acute on chronic systolic heart failure Essential hypertension Unspecified essential hypertension Obesity, Class I, BMI 30-34.9 Obesity, unspecified Hypothyroidism, unspecified type Homozygous Factor V Leiden mutation (HCC) Primary hypercoagulable state Pre-operative examination- Primary Preoperative examination, unspecified Colon cancer screening Special screening for malignant neoplasms, colon Chronic 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) Chronic combined systolic and diastolic heart failure Valvular heart disease Endocarditis, valve unspecified, unspecified cause Mixed hyperlipidemia Primary hypertension Unspecified essential hypertension Palpitations Diverticulitis Diverticulitis of colon (without mention of hemorrhage) Irritable bowel syndrome, unspecified type Kidney insufficiency Unspecified disorder of kidney and ureter Hypokalemia Hypopotassemia Hypothyroidism, unspecified type Homozygous Factor V Leiden mutation (HCC) Primary hypercoagulable state Obesity, Class I, BMI 30-34.9 Obesity, unspecified Acute cough [facility] [place] [facility]* Diagnosis Pre-op evaluation- Primary Preoperative examination, unspecified Acute on chronic systolic CHF (congestive heart failure) (HCC) Acute on chronic systolic heart failure Essential hypertension Unspecified essential hypertension Obesity, Class I, BMI 30-34.9 Obesity, unspecified Hypothyroidism, unspecified type Homozygous Factor V Leiden mutation (HCC) Primary hypercoagulable state Pre-operative examination- Primary Preoperative examination, unspecified Colon cancer screening Special screening for malignant neoplasms, colon Chronic 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) Chronic combined systolic and diastolic heart failure Valvular heart disease Endocarditis, valve unspecified, unspecified cause Mixed hyperlipidemia Primary hypertension Unspecified essential hypertension Palpitations Diverticulitis Diverticulitis of colon (without mention of hemorrhage) Irritable bowel syndrome, unspecified type Kidney insufficiency Unspecified disorder of kidney and ureter Hypokalemia Hypopotassemia Hypothyroidism, unspecified type Homozygous Factor V Leiden mutation (HCC) Primary hypercoagulable state Obesity, Class I, BMI 30-34.9 Obesity, unspecified Acute cough- Primary Vitamin B12 deficiency Other B-complex deficiencies Fatigue, unspecified type Nausea Nausea alone Hypothyroidism, acquired Unspecified hypothyroidism Chronic 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) Chronic combined systolic and diastolic heart failure Vitamin D deficiency Unspecified vitamin D deficiency [facility] [place] [facility]* Diagnosis Pre-op evaluation- Primary Preoperative examination, unspecified Acute on chronic systolic CHF (congestive heart failure) (HCC) Acute on chronic systolic heart failure Essential hypertension Unspecified essential hypertension Obesity, Class I, BMI 30-34.9 Obesity, unspecified Hypothyroidism, unspecified type Homozygous Factor V Leiden mutation (HCC) Primary hypercoagulable state Pre-operative examination- Primary Preoperative examination, unspecified Colon cancer screening Special screening for malignant neoplasms, colon Chronic 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) Chronic combined systolic and diastolic heart failure Valvular heart disease Endocarditis, valve unspecified, unspecified cause Mixed hyperlipidemia Primary hypertension Unspecified essential hypertension Palpitations Diverticulitis Diverticulitis of colon (without mention of hemorrhage) Irritable bowel syndrome, unspecified type Kidney insufficiency Unspecified disorder of kidney and ureter Hypokalemia Hypopotassemia Hypothyroidism, unspecified type Homozygous Factor V Leiden mutation (HCC) Primary hypercoagulable state Obesity, Class I, BMI 30-34.9 Obesity, unspecified Chronic bilateral thoracic back pain- Primary Somatic dysfunction of rib Somatic dysfunction of spine, thoracic Nonallopathic lesion of thoracic region, not elsewhere classified Somatic dysfunction of spine, cervical Nonallopathic lesion of cervical region, not elsewhere classified Somatic dysfunction of head region Somatic dysfunction of pelvic region Nonallopathic lesion of pelvic region, not elsewhere classified [facility] Diagnosis Pre-op evaluation- Primary Preoperative examination, unspecified Acute on chronic systolic CHF (congestive heart failure) (HCC) Acute on chronic systolic heart failure Essential hypertension Unspecified essential hypertension Obesity, Class I, BMI 30-34.9 Obesity, unspecified Hypothyroidism, unspecified type Homozygous Factor V Leiden mutation (HCC) Primary hypercoagulable state Pre-operative examination- Primary Preoperative examination, unspecified Colon cancer screening Special screening for malignant neoplasms, colon Chronic 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) Chronic combined systolic and diastolic heart failure Valvular heart disease Endocarditis, valve unspecified, unspecified cause Mixed hyperlipidemia Primary hypertension Unspecified essential hypertension Palpitations Diverticulitis Diverticulitis of colon (without mention of hemorrhage) Irritable bowel syndrome, unspecified type Kidney insufficiency Unspecified disorder of kidney and ureter Hypokalemia Hypopotassemia Hypothyroidism, unspecified type Homozygous Factor V Leiden mutation (HCC) Primary hypercoagulable state Obesity, Class I, BMI 30-34.9 Obesity, unspecified Chronic bilateral thoracic back pain- Primary Somatic dysfunction of rib Somatic dysfunction of pelvic region Nonallopathic lesion of pelvic region, not elsewhere classified Somatic dysfunction of spine, thoracic Nonallopathic lesion of thoracic region, not elsewhere classified Somatic dysfunction of spine, cervical Nonallopathic lesion of cervical region, not elsewhere classified Somatic dysfunction of head region Somatic dysfunction of spine, lumbar Nonallopathic lesion of lumbar region, not elsewhere classified Pacemaker reprogramming/check Fitting and adjustment of cardiac pacemaker documented in this encounter [facility] note* Diagnosis Pre-op evaluation- Primary Preoperative examination, unspecified Acute on chronic systolic CHF (congestive heart failure) (HCC) Acute on chronic systolic heart failure Essential hypertension Unspecified essential hypertension Obesity, Class I, BMI 30-34.9 Obesity, unspecified Hypothyroidism, unspecified type Homozygous Factor V Leiden mutation (HCC) Primary hypercoagulable state Pre-operative examination- Primary Preoperative examination, unspecified Colon cancer screening Special screening for malignant neoplasms, colon Chronic 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) Chronic combined systolic and diastolic heart failure Valvular heart disease Endocarditis, valve unspecified, unspecified cause Mixed hyperlipidemia Primary hypertension Unspecified essential hypertension Palpitations Diverticulitis Diverticulitis of colon (without mention of hemorrhage) Irritable bowel syndrome, unspecified type Kidney insufficiency Unspecified disorder of kidney and ureter Hypokalemia Hypopotassemia Hypothyroidism, unspecified type Homozygous Factor V Leiden mutation (HCC) Primary hypercoagulable state Obesity, Class I, BMI 30-34.9 Obesity, unspecified Chronic bilateral thoracic back pain- Primary Somatic dysfunction of spine, lumbar Nonallopathic lesion of lumbar region, not elsewhere classified Somatic dysfunction of rib Somatic dysfunction of head region Somatic dysfunction of spine, cervical Nonallopathic lesion of cervical region, not elsewhere classified Somatic dysfunction of spine, thoracic Nonallopathic lesion of thoracic region, not elsewhere classified Pacemaker reprogramming/check Fitting and adjustment of cardiac pacemaker [facility] [place] [facility]* Diagnosis Pre-op evaluation- Primary Preoperative examination, unspecified Acute on chronic systolic CHF (congestive heart failure) (HCC) Acute on chronic systolic heart failure Essential hypertension Unspecified essential hypertension Obesity, Class I, BMI 30-34.9 Obesity, unspecified Hypothyroidism, unspecified type Homozygous Factor V Leiden mutation (HCC) Primary hypercoagulable state Pre-operative examination- Primary Preoperative examination, unspecified Colon cancer screening Special screening for malignant neoplasms, colon Chronic 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) Chronic combined systolic and diastolic heart failure Valvular heart disease Endocarditis, valve unspecified, unspecified cause Mixed hyperlipidemia Primary hypertension Unspecified essential hypertension Palpitations Diverticulitis Diverticulitis of colon (without mention of hemorrhage) Irritable bowel syndrome, unspecified type Kidney insufficiency Unspecified disorder of kidney and ureter Hypokalemia Hypopotassemia Hypothyroidism, unspecified type Homozygous Factor V Leiden mutation (HCC) Primary hypercoagulable state Obesity, Class I, BMI 30-34.9 Obesity, unspecified Cardiac resynchronization therapy defibrillator (CUT PLUG PACKER-D) in place- Primary documented in this encounter [facility] note* Diagnosis Pre-op evaluation- Primary Preoperative examination, unspecified Acute on chronic systolic CHF (congestive heart failure) (HCC) Acute on chronic systolic heart failure Essential hypertension Unspecified essential hypertension Obesity, Class I, BMI 30-34.9 Obesity, unspecified Hypothyroidism, unspecified type Homozygous Factor V Leiden mutation (HCC) Primary hypercoagulable state Pre-operative examination- Primary Preoperative examination, unspecified Colon cancer screening Special screening for malignant neoplasms, colon Chronic 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) Chronic combined systolic and diastolic heart failure Valvular heart disease Endocarditis, valve unspecified, unspecified cause Mixed hyperlipidemia Primary hypertension Unspecified essential hypertension Palpitations Diverticulitis Diverticulitis of colon (without mention of hemorrhage) Irritable bowel syndrome, unspecified type Kidney insufficiency Unspecified disorder of kidney and ureter Hypokalemia Hypopotassemia Hypothyroidism, unspecified type Homozygous Factor V Leiden mutation (HCC) Primary hypercoagulable state Obesity, Class I, BMI 30-34.9 Obesity, unspecified Cardiac resynchronization therapy defibrillator (CUT PLUG PACKER-D) in place- Primary Chronic HFrEF (heart failure with reduced ejection fraction) (HCC) Medication management Encounter for long-term (current) use of other medications documented in this encounter [facility] note* Diagnosis Pre-op evaluation- Primary Preoperative examination, unspecified Acute on chronic systolic CHF (congestive heart failure) (HCC) Acute on chronic systolic heart failure Essential hypertension Unspecified essential hypertension Obesity, Class I, BMI 30-34.9 Obesity, unspecified Hypothyroidism, unspecified type Homozygous Factor V Leiden mutation (HCC) Primary hypercoagulable state Pre-operative examination- Primary Preoperative examination, unspecified Colon cancer screening Special screening for malignant neoplasms, colon Chronic 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) Chronic combined systolic and diastolic heart failure Valvular heart disease Endocarditis, valve unspecified, unspecified cause Mixed hyperlipidemia Primary hypertension Unspecified essential hypertension Palpitations Diverticulitis Diverticulitis of colon (without mention of hemorrhage) Irritable bowel syndrome, unspecified type Kidney insufficiency Unspecified disorder of kidney and ureter Hypokalemia Hypopotassemia Hypothyroidism, unspecified type Homozygous Factor V Leiden mutation (HCC) Primary hypercoagulable state Obesity, Class I, BMI 30-34.9 Obesity, unspecified Chronic systolic congestive heart failure (HCC)- Primary Chronic systolic heart failure Nonischemic cardiomyopathy (HCC) Other primary cardiomyopathies Coronary artery disease involving [place] coronary artery of [place] heart without angina pectoris Left bundle branch block Other left bundle branch block Cardiac resynchronization therapy defibrillator (CUT PLUG PACKER-D) in place documented in this encounter [facility] Discharge instructionsAdditional Instructions Use incentive spirometer 5 times in a row, at least 3 times a day at least for the first half of the week or so, to encourage you to take deep breaths which will help prevent you from developing pneumonia from having pain with breathing. Consider taking a stool softener along with the narcotic pain medication, as it can cause constipation. MiraLAX 1 capful daily dissolved in 8 ounces of any fluid is an option for this.[facility] Work Phone: Reason for referral (narrative)* Diagnostic Procedure Only (Routine) - Closed Specialty Diagnoses / Procedures Referred By Crissy kelley Referred To Contact BR [facility] Diagnoses Encounter for screening mammogram for breast cancer Procedures KARTHIK SCREENING SCREENING MAMMOGRAPHY BI 2-VIEW BREAST INC CAD Maycol Valladares MD [address] [place] [address] Br Imaging [address] [place] [address] Referral ID Status Reason Start Date Expiration Date V isits Requested Visits Authorized [id number] Closed Auto-Generate d Referral 07/01/2021 07/31/2022 1 1 [facility] for referral (narrative)* Diagnostic Procedure Only (Routine) - Closed Specialty Diagnoses / Procedures Referred By Crissy kelley Referred To Contact XR IMAGING Diagnoses Chronic left shoulder pain Left elbow pain Procedures XR SHOULDER LIMITED 2V AP/TRUE AP LEFT RADEX SHOULDER COMPLETE MINIMUM 2 VIEWS Alejandrina Harvey APRN.DIRECTOR OF DONOR RELATIONS [address] [place] [address] Xr Imaging Referral ID Status Reason Start Date Expiration Date V isits Requested Visits Authorized [id number] Closed Auto-Generate d Referral 09/01/2021 10/01/2022 1 1 * Diagnostic Procedure Only (Routine) - Closed Specialty Diagnoses / Procedures Referred By Contac t Referred To Contact XR IMAGING Diagnoses Chronic left shoulder pain Left elbow pain Procedures XR ELBOW GENERAL 2V AP/LAT LEFT RADEX ELBOW 2 VIEWS Alejandrina Harvey APRN.CNP [address] [place] [address] Xr Imaging Referral ID Status Reason Start Date Expiration Date V isits Requested Visits Authorized [id number] Closed Auto-Generate d Referral 09/01/2021 10/01/2022 1 1 [facility] for referral (narrative)* Outpatient Procedure (Routine) - Closed Specialty Diagnoses / Procedures Referred By Contac t Referred To [facility] Diagnoses Abdominal bloating Belching Abdominal pain, unspecified abdominal location Procedures EGD DIAGNOSTIC ESOPHAGOGASTRODUODENOSC OPY TRANSORAL DIAGNOSTIC Sincere Perkins PA-C [address] [place] [address] [facility] [place] [address] [place] [address] Referral ID Status Reason Start Date Expiration Date V isits Requested Visits Authorized [id number] Closed Auto-Generate d Referral 11/02/2021 11/02/2022 1 1 * Outpatient Procedure (Routine) - Closed Specialty Diagnoses / Procedures Referred By Contac t Referred To Contact [facility] Diagnoses Abdominal bloating Belching Abdominal pain, unspecified abdominal location Procedures COLONOSCOPY DIAGNOSTIC COLONOSCOPY FLX DX W/COLLJ SPEC WHEN PFRMD Sincere Perkins PA-C [address] [place] [address] [facility] [address] [place] [address] Referral ID Status Reason Start Date Expiration Date V isits Requested Visits Authorized [id number] Closed Auto-Generate d Referral 11/02/2021 11/02/2022 1 1 [facility] for referral (narrative)* Outpatient Procedure (Routine) - Closed Specialty Diagnoses / Procedures Referred By Contac t Referred To Contact [facility] [place] Diagnoses Abdominal bloating Belching Abdominal pain, unspecified abdominal location Procedures EGD DIAGNOSTIC ESOPHAGOGASTRODUODENOSC OPY TRANSORAL DIAGNOSTIC Sincere Perkins PA-C [address] [place] [address] [address] Referral ID Status Reason Start Date Expiration Date V isits Requested Visits Authorized [id number] Closed Auto-Generate d Referral 11/02/2021 11/02/2022 1 1 * Outpatient Procedure (Routine) - Closed Specialty Diagnoses / Procedures Referred By Contac t Referred To Contact [facility] Diagnoses Abdominal bloating Belching Abdominal pain, unspecified abdominal location Procedures COLONOSCOPY DIAGNOSTIC COLONOSCOPY FLX DX W/COLLJ SPEC WHEN PFRMD Sincere Perkins PA-C [address] [place] [address] [address] Referral ID Status Reason Start Date Expiration Date V isits Requested Visits Authorized [id number] Closed Auto-Generate d Referral 11/02/2021 11/02/2022 1 1 [facility] for referral (narrative)* Outpatient Procedure (Routine) - Authorized Specialty Diagnoses / Procedures Referred By Contac t Referred To [facility] Diagnoses Cardiomegaly Procedures ECHO ECHO TTHRC R-T 2D W/WOM-MODE COMPL SPEC&COLR D Santo Oneill MD [address] [place] [address] [facility] [address] [place] [address] Referral ID Status Reason Start Date Expiration Date Visits Requested Visits Authorized [id number] Authorized Auto-Generat ed Referral 02/13/2023 1 1 [facility] for referral (narrative)* Outpatient Procedure (Routine) - Closed Specialty Diagnoses / Procedures Referred By Contac t Referred To Contact [facility] Diagnoses Primary hypertension Palpitations Mixed hyperlipidemia Procedures ECG COMPLETE ECG ROUTINE ECG W/LEAST 12 LDS W/I&R Santo Oneill MD [address] [place] [address] [facility] [address] [place] [address] Referral ID Status Reason Start Date Expiration Date V isits Requested Visits Authorized [id number] Closed Auto-Generate d Referral 08/03/2022 08/03/2023 1 1 [facility] for referral (narrative)* Outpatient Procedure (Routine) - Pending Review Specialty Diagnoses / Procedures Referred By Contac t Referred To Contact [facility] Diagnoses LBBB (left bundle branch block) Presence of cardiac resynchronization therapy defibrillator (CUT PLUG PACKER-D) Acute on chronic systolic CHF (congestive heart failure) (HCC) Procedures ECG COMPLETE ECG ROUTINE ECG W/LEAST 12 LDS W/I&[place] [address] [place] [address] [address] Referral ID Status Reason Start Date Expiration Date Visits Requested Visits Authorized [id number] Pending Review Auto-Generat ed Referral 08/07/2023 08/06/2024 1 1 [facility] for referral (narrative)* Diagnostic Procedure Only (Urgent) - Closed Specialty Diagnoses / Procedures Referred By Contac t Referred To Contact XR IMAGING Diagnoses Foot pain, left Localized swelling of left foot Procedures XR FOOT GENERAL 3V AP/LAT/OBL LEFT RADEX FOOT COMPLETE MINIMUM 3 VIEWS Alejandrina Harvey APRN.CNP [address] [place] [address] [place] [address] Referral ID Status Reason Start Date Expiration Date V isits Requested Visits Authorized [id number] Closed Auto-Generate d Referral 09/13/2023 10/12/2024 1 1 [facility] for referral (narrative)* Diagnostic Procedure Only (Routine) - Closed Specialty Diagnoses / Procedures Referred By Contac t Referred To Contact XR IMAGING Diagnoses Repetitive stress injury Procedures XR FOOT GENERAL 3V AP/LAT/OBL LEFT RADEX FOOT COMPLETE MINIMUM 3 VIEWS Oliverio Mata [address] [place] [address] [place] [address] Referral ID Status Reason Start Date Expiration Date V isits Requested Visits Authorized [id number] Closed Auto-Generate d Referral 09/24/2023 10/23/2024 1 1 [facility] for referral (narrative)* Outpatient Procedure (Routine) - Pending Review Specialty Diagnoses / Procedures Referred By Contac t Ref[facility] Diagnoses Presence of cardiac resynchronization therapy defibrillator (CUT PLUG PACKER-D) Non-ischemic cardiomyopathy (HCC) LBBB (left bundle branch block) Procedures ECG COMPLETE ECG ROUTINE ECG W/LEAST 12 LDS W/I&R Mercedes Vera APRN.DIRECTOR OF DONOR RELATIONS [address] [place] [address] [facility] [place] [address] [facility] [place] [id number] Referral ID Status Reason Start Date Expiration Date Visits Requested Visits Authorized [id number] Pending Review Auto-Generat ed Referral 11/01/2023 10/31/2024 1 1 [facility] for referral (narrative)* Diagnostic Procedure Only (Routine) - Pending Review Specialty Diagnoses / Procedures Referred By Contac t Referred To Contact XR IMAGING Diagnoses Acute midline low back pain without sciatica Procedures XR LUMBAR GENERAL 3V AP/LAT/L5-S1 RADEX SPINE LUMBOSACRAL 2/3 VIEWS Mandeep Houser DO [address] [place] [address] [place] [address] Referral ID Status Reason Start Date Expiration Date Visits Requested Visits Authorized [id number] Pending Review Auto-Generat ed Referral 11/07/2023 12/06/2024 1 1 * Physical Therapy (Routine) - Authorized Specialty Diagnoses / Procedures Referred By Contac t Referred To Contact [facility] Diagnoses Acute midline low back pain without sciatica Procedures CONSULT TO PHYSICAL THERAPY PHYSICAL THERAPY EVALUATION HIGH COMPLEX 45 MINS Mandeep Houser DO [address] [place] [address] [facility] [address] [address] Referral ID Status Reason Start Date Expiration Date Visits Requested Visits Authorized [id number] Authorized PCP Requested Referral Auto-Generate d Referral 11/07/2023 11/06/2024 99 99 [facility] for referral (narrative)* Outpatient Procedure (Routine) - Closed Specialty Diagnoses / Procedures Referred By Contac t Referred [facility] Diagnoses Chronic systolic congestive heart failure (HCC) Procedures ECHO ECHO TTHRC R-T 2D W/WOM-MODE COMPL SPEC&[place] [address] [place] [address] [facility] [address] [address] Referral ID Status Reason Start Date Expiration Date V isits Requested Visits Authorized [id number] Closed Auto-Generate d Referral 11/07/2023 08/06/2024 1 1 [facility] for referral (narrative)* Diagnostic Procedure Only (Urgent) - Closed Specialty Diagnoses / Procedures Referred By Contac t Referred To Contact XR IMAGING Diagnoses Foot pain, left Localized swelling of left foot Procedures XR FOOT GENERAL 3V AP/LAT/OBL LEFT RADEX FOOT COMPLETE MINIMUM 3 VIEWS Alejandrina Harvey APRN.DIRECTOR OF DONOR RELATIONS [address] [place] [address] [place] [id number] Referral ID Status Reason Start Date Expiration Date V isits Requested Visits Authorized [id number] Closed Auto-Generate d Referral 09/13/2023 10/12/2024 1 1 [facility] for referral (narrative)* Outpatient Procedure (Routine) - New Request Specialty Diagnoses / Procedures Referred By Contac t Referred To Contact [facility] [place] Diagnoses Nonischemic cardiomyopathy (HCC) Procedures ECHO ECHO TTHRC R-T 2D W/WOM-MODE COMPL SPEC&COLR Angel Benites DO [address] [place] [address] [facility] [address] [address] Referral ID Status Reason Start Date Expiration Date Visits Requested Visits Authorized [id number] New Request Auto-Generat ed Referral 08/06/2024 02/06/2025 1 1 [facility] for referral (narrative)* Diagnostic Procedure Only (Routine) - Closed Specialty Diagnoses / Procedures Referred By Contac t Referred To Contact XR IMAGING Diagnoses Chronic left shoulder pain Left elbow pain Procedures XR SHOULDER LIMITED 2V AP/TRUE AP LEFT RADEX SHOULDER COMPLETE MINIMUM 2 VIEWS Alejandrina Harvey APRN.DIRECTOR OF DONOR RELATIONS [address] [place] [address] [place] [address] Referral ID Status Reason Start Date Expiration Date V isits Requested Visits Authorized [id number] Closed Auto-Generate d Referral 09/01/2021 10/01/2022 1 1 * Diagnostic Procedure Only (Routine) - Closed Specialty Diagnoses / Procedures Referred By Contac t Referred To Contact XR IMAGING Diagnoses Chronic left shoulder pain Left elbow pain Procedures XR ELBOW GENERAL 2V AP/LAT LEFT RADEX ELBOW 2 VIEWS Alejandrina Harvey APRN.DIRECTOR OF DONOR RELATIONS [address] [place] [address] [place] [address] Referral ID Status Reason Start Date Expiration Date V isits Requested Visits Authorized [id number] Closed Auto-Generate d Referral 09/01/2021 10/01/2022 1 1 [facility] for referral (narrative)* Diagnostic Procedure Only (Routine) - Closed Specialty Diagnoses / Procedures Referred By Contac t Referred To Contact XR IMAGING Diagnoses Chronic pain of right ankle Procedures XR ANKLE GENERAL 3V AP/LAT/OBL RT X-RAY ANKLE MINIMUM 3 VIEWS Maycol Valladares MD [address] [place] [address] [place] [address] Referral ID Status Reason Start Date Expiration Date V isits Requested Visits Authorized [id number] Closed Auto-Generate d Referral 12/29/2020 01/28/2022 1 1 [facility] for referral (narrative)No reason for referral information availableW[facility] Work Phone: Reason for visit Narrative* Diagnostic Procedure Only (Routine) - Closed Specialty Diagnoses / Procedures Referred By Crissy t Referred To Contact [facility] Diagnoses Encounter for screening mammogram for breast cancer Procedures KARTHIK SCREENING SCREENING MAMMOGRAPHY BI 2-VIEW BREAST INC CAD Valladares, Treeso, MD [address] [place] [address] [facility] [address] [place] [phone] Referral ID Status Reason Start Date Expiration Date V isits Requested Visits Authorized [id number] Closed Auto-Generate d Referral 07/01/2021 07/31/2022 1 1 [facility] for visit Narrative* Outpatient Procedure (Routine) - Closed Specialty Diagnoses / Procedures Referred By Gageac t Referred To Contact [facility] Diagnoses Abdominal bloating Belching Abdominal pain, unspecified abdominal location Procedures EGD DIAGNOSTIC ESOPHAGOGASTRODUODENOSC OPY TRANSORAL DIAGNOSTIC Sincere Perknis PA-C [address] [place] [address] [facility] [address] [address] Referral ID Status Reason Start Date Expiration Date V isits Requested Visits Authorized [id number] Closed Auto-Generate d Referral 11/02/2021 11/02/2022 1 1 [facility] for visit Narrative* Diagnostic Procedure Only (Routine) - Closed Specialty Diagnoses / Procedures Referred By Crissy t Referred To Contact XR IMAGING Diagnoses Repetitive stress injury Procedures XR FOOT GENERAL 3V AP/LAT/OBL LEFT RADEX FOOT COMPLETE MINIMUM 3 VIEWS Oliverio Mata [address] [place] [address] [place] [address] Referral ID Status Reason Start Date Expiration Date V isits Requested Visits Authorized [id number] Closed Auto-Generate d Referral 09/24/2023 10/23/2024 1 1 [facility] for visit Narrative* Outpatient Procedure (Routine) - Closed Specialty Diagnoses / Procedures Referred By Contac t Referred To Contact [facility] Diagnoses Chronic systolic congestive heart failure (HCC) Procedures ECHO ECHO TTHRC R-T 2D W/WOM-MODE COMPL SPEC&[place] [address] [place] [address] [facility] [place] [address] [place] [address] Referral ID Status Reason Start Date Expiration Date V isits Requested Visits Authorized [id number] Closed Auto-Generate d Referral 11/07/2023 08/06/2024 1 1 [facility] for visit Narrative* Diagnostic Procedure Only (Urgent) - Closed Specialty Diagnoses / Procedures Referred By Contac t Referred To Contact XR IMAGING Diagnoses Foot pain, left Localized swelling of left foot Procedures XR FOOT GENERAL 3V AP/LAT/OBL LEFT RADEX FOOT COMPLETE MINIMUM 3 VIEWS Alejandrina Harvey, VICE PRESIDENT OF OPERATIONS.DIRECTOR OF DONOR RELATIONS [address] [place] [address] [place] [address] Referral ID Status Reason Start Date Expiration Date V isits Requested Visits Authorized [id number] Closed Auto-Generate d Referral 09/13/2023 10/12/2024 1 1 [facility] for visit Narrative* Diagnostic Procedure Only (Routine) - Closed Specialty Diagnoses / Procedures Referred By Contac t Referred To Contact XR IMAGING Diagnoses Chronic left shoulder pain Left elbow pain Procedures XR SHOULDER LIMITED 2V AP/TRUE AP LEFT RADEX SHOULDER COMPLETE MINIMUM 2 VIEWS Alejandrina Harvey, VICE PRESIDENT OF OPERATIONS.DIRECTOR OF DONOR RELATIONS [address] [place] [address] [place] [address] Referral ID Status Reason Start Date Expiration Date V isits Requested Visits Authorized [id number] Closed Auto-Generate d Referral 09/01/2021 10/01/2022 1 1 [facility] for visit Narrative* Diagnostic Procedure Only (Routine) - Closed Specialty Diagnoses / Procedures Referred By Contac t Referred To Contact XR IMAGING Diagnoses Chronic pain of right ankle Procedures XR ANKLE GENERAL 3V AP/LAT/OBL RT X-RAY ANKLE MINIMUM 3 VIEWS Maycol Valladares MD [address] [place] [address] [place] [address] Referral ID Status Reason Start Date Expiration Date V isits Requested Visits Authorized [id number] Closed Auto-Generate d Referral 12/29/2020 01/28/2022 1 1 [facility] Summary Purpose Family History Grandmother Name Dates Details Family history of cardiac di sorder(V17.49, Z82.49) Status:Active Mother Name Dates Details Family history of hypertensi on(V17.49, Z82.49) Status:Active Family history of cardiac di sorder(V17.49, Z82.49) Status:Active Father Name Dates Details Family history of hypertensi on(V17.49, Z82.49) Status:Active Family history of cardiac di sorder(V17.49, Z82.49) Status:Active Sister Name Dates Details Family history of malignant neoplasm of breast(V16.3, Z80.3) Status:Active Grandfather Name Dates Details Family history of cardiac di sorder(V17.49, Z82.49) Status:Active Grandmother Name Dates Details Family history of cardiac di sorder(V17.49, Z82.49) Status:Active Mother Name Dates Details Family history of hypertensi on(V17.49, Z82.49) Status:Active Family history of cardiac di sorder(V17.49, Z82.49) Status:Active Father Name Dates Details Family history of hypertensi on(V17.49, Z82.49) Status:Active Family history of cardiac di sorder(V17.49, Z82.49) Status:Active Sister Name Dates Details Family history of malignant neoplasm of breast(V16.3, Z80.3) Status:Active Grandfather Name Dates Details Family history of cardiac di sorder(V17.49, Z82.49) Status:Active Advance Directives Documents on File Type Date 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(s) 03/18/2021 2:56 PM Advance Directive(s) 09/28/2020 8:38 PM Advance Directive(s) 09/07/2020 9:42 AM Advance Directive(s) 09/03/2020 2:04 PM Advance Directive(s) 05/30/2020 10:25 AM Advance Directive(s) 05/24/2020 10:03 AM Advance Directive(s) 05/03/2020 9:25 AM Advance Directive(s) 03/09/2020 8:13 AM Advance Directive(s) 03/09/2020 12:44 PM Documents on File Type Date 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(s) 03/18/2021 2:56 PM Advance Directive(s) 09/28/2020 8:38 PM Advance Directive(s) 09/07/2020 9:42 AM Advance Directive(s) 09/03/2020 2:04 PM Advance Directive(s) 05/30/2020 10:25 AM Advance Directive(s) 05/24/2020 10:03 AM Advance Directive(s) 05/03/2020 9:25 AM Advance Directive(s) 03/09/2020 8:13 AM Advance Directive(s) 03/09/2020 12:44 PM Documents on File Type Date 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(s) 11/21/2021 10:55 AM Advance Directive(s) 03/18/2021 2:56 PM Advance Directive(s) 09/28/2020 8:38 PM Advance Directive(s) 09/07/2020 9:42 AM Advance Directive(s) 09/03/2020 2:04 PM Advance Directive(s) 05/30/2020 10:25 AM Advance Directive(s) 05/24/2020 10:03 AM Advance Directive(s) 05/03/2020 9:25 AM Advance Directive(s) 03/09/2020 8:13 AM Advance Directive(s) 03/09/2020 12:44 PM Documents on File Type Date 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(s) 12/05/2021 8:38 AM Advance Directive(s) 11/21/2021 10:55 AM Advance Directive(s) 03/18/2021 2:56 PM Advance Directive(s) 09/28/2020 8:38 PM Advance Directive(s) 09/07/2020 9:42 AM Advance Directive(s) 09/03/2020 2:04 PM Advance Directive(s) 05/30/2020 10:25 AM Advance Directive(s) 05/24/2020 10:03 AM Advance Directive(s) 05/03/2020 9:25 AM Advance Directive(s) 03/09/2020 8:13 AM Advance Directive(s) 03/09/2020 12:44 PM Documents on File Type Date 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(s) 12/05/2021 8:38 AM Advance Directive(s) 11/21/2021 10:55 AM Advance Directive(s) 03/18/2021 2:56 PM Advance Directive(s) 09/28/2020 8:38 PM Advance Directive(s) 09/07/2020 9:42 AM Advance Directive(s) 09/03/2020 2:04 PM Advance Directive(s) 05/30/2020 10:25 AM Advance Directive(s) 05/24/2020 10:03 AM Advance Directive(s) 05/03/2020 9:25 AM Advance Directive(s) 03/09/2020 8:13 AM Advance Directive(s) 03/09/2020 12:44 PM Advance Directive Response Recorded Date/ Time Living Will Yes August 29, 2023 3:01pm Power of Cut Tobacco Bulker Yes August 28 3:01pm Advance Directives on File No August 29, 2023 2:28pm Date Activated Date Inactivated Comments 11/15/2023 11:12 PM 11/18/2023 6:11 PM Question Answer Comments Full Code Order Discussed With: Patient Date Activated Date Inactivated Comments 11/15/2023 11:12 PM 11/18/2023 6:11 PM Question Answer Comments Full Code Order Discussed With: Patient Advance Directive Response Recorded Date/ Time Do you have a Healthcare Power of Cut Tobacco Bulker? Yes November 13, 2024 5:58pm Reason for Referral Specialty Diagnoses / Procedures Referred By Contac t Referred To Contact CT IMAGING Diagnoses Diverticulitis RLQ abdominal pain Lower abdominal pain Procedures CT ABD/PEL W IVCON CT ABD & PELVIS W/CONTRAST Alejandrina Harvey APRN.DIRECTOR OF DONOR RELATIONS [address] [place] [address] Ct Imaging Referral ID Status Reason Start Date Expiration Date Visits Requested Visits Authorized [id number] Authorized Auto-Generat ed Referral 10/19/2021 11/18/2022 1 1 Referral ID Status Reason Start Date Expiration Date V isits Requested Visits Authorized [id number] Closed Auto-Generate d Referral 10/19/2021 11/18/2022 1 1 Specialty Diagnoses / Procedures Referred By Contac t Referred To Contact CT IMAGING Diagnoses Abdominal distension (gaseous) Nausea RUQ abdominal pain Procedures CT ABD/PEL W IVCON CT ABD & PELVIS W/CONTRAST Mandeep Houser, DO [address] [place] [address] Ct Imaging Referral ID Status Reason Start Date Expiration Date Visits Requested Visits Authorized [id number] Authorized Auto-Generat ed Referral 08/22/2022 09/21/2023 1 1 Specialty Diagnoses / Procedures Referred By Contac t Referred To Contact CT IMAGING Diagnoses Abdominal distension (gaseous) Nausea RUQ abdominal pain Procedures CT ABD/PEL W IVCON CT ABD & PELVIS W/CONTRAST Mandeep Houser L, DO [address] [place] [address] Ct Imaging [place] [address] Referral ID Status Reason Start Date Expiration Date V isits Requested Visits Authorized [id number] Closed Auto-Generate d Referral 08/22/2022 09/21/2023 1 1 Specialty Diagnoses / Procedures Referred By Contac t Referred To Contact Diagnoses Acute on chronic systolic CHF (congestive heart failure) (HCC) Procedures CONSULT TO ELECTROPHYSIOLOGY OFFICE/OUTPATIENT NEW HIGH MDM 60-74 MINUTES Santo Oneill MD [address] [place] [address] Angel Gaxiola MD [address] [address] Referral ID Status Reason Start Date Expiration Date Visits Requested Visits Authorized [id number] Authorized PCP Requested Referral 04/16/2023 07/08/2023 1 1 Specialty Diagnoses / Procedures Referred By Contac t Referred [facility] Diagnoses Primary hypertension Procedures ECG COMPLETE ECG ROUTINE ECG W/LEAST 12 LDS W/I&R Santo Oneill MD [address] [place] [address] [facility] [place] [address] [place] [address] Referral ID Status Reason Start Date Expiration Date Visits Requested Visits Authorized [id number] Pending Review Auto-Generat ed Referral 3 04/08/2024 1 1 Specialty Diagnoses / Procedures Referred By Contac t Referred To Contact CT IMAGING Diagnoses Word finding difficulty New onset of headaches after age [address] BRAIN WO IVCON CT HEAD/BRAIN W/O CONTRAST MATERIAL Mandeep Houser L, DO [address] [place] [address] Ct Imaging MD [id number] Referral ID Status Reason Start Date Expiration Date Visits Requested Visits Authorized [id number] Authorized Auto-Generat ed Referral 10/31/2023 11/29/2024 1 1 Referral ID Status Reason Start Date Expiration Date V isits Requested Visits Authorized [id number] Closed Auto-Generate d Referral 10/31/2023 11/29/2024 1 1 Medications Administered Section Inactive Administered Medications - up to 3 most recent administrations Medication Order MAR Action Action Date Dose Rate Site benzocaine 20% 1 [place] (TOPEX) 1 [place], TOPICAL, ONCE, 1 dose, On Sun12/05/21 at 1030, 1 spray to the back of the throat prior to EGD - Pharmaceutical Waste: Aerosol -, Preprocedure Given 12/05/2021 9:50 AM EDT 1 [place] lactated ringers iv infusion 30 mL/hr, INTRAVENOUS, CONTINUOUS, Starting on Sun12/05/21 at 0900, Until Sun12/05/21 at 1021, Preprocedure New Bag/Syringe/Bottle 12/05/2021 9:26 AM EDT 30 mL/hr 30 mL/hr ondansetron (PF) 4 mg injection (ZOFRAN) 4 mg, INTRAVENOUS, PRE-OP ONCE, 1 dose, On Sun12/05/21 at 0930, Give IV push over 2 minutes, Preprocedure Given 12/05/2021 9:33 AM EDT 4 mg Health Concerns Infection Onset Date Last Indicated Resolved Time COVID-19 Rule-Out 10/14/2022 10/14/2022 Infection Onset Date Last Indicated Resolved Time COVID-19 Rule-Out 10/14/2022 10/14/2022 10/15/2022 1:40 AM EDT COVID-19 Confirmed 10/14/2022 10/14/2022 Infection Onset Date Last Indicated Resolved Time COVID-19 Confirmed 10/14/2022 10/14/2022 3 8:51 PM EDT Infection Onset Date Last Indicated Resolved Time COVID-19 Rule-Out 10/14/2022 10/14/2022 10/15/2022 1:40 AM EDT COVID-19 Confirmed 10/14/2022 10/14/2022 06/13/202 3 8:51 PM EDT Chief Complaint and Reason for Visit Chief Complaint Heart (congestive) L VEF<35% CHF w/EF<35% Chief Complaint Admit Date fallNovember 13, 2024 5:54p m Additional Source Comments INFORMATION SOURCE (unrecogn ized section and content) DATE CREATED AUTHOR 02/21/2018 [facility] DATE CREATED AUTHOR AUTHOR'S ORGANIZ ATION 01/28/2019 [facility] DATE CREATED AUTHOR AUTHOR'S ORGANIZ ATION 02/09/2020 [facility] DATE CREATED AUTHOR AUTHOR'S ORGANIZ ATION 04/30/2020 [facility] DATE CREATED AUTHOR AUTHOR'S ORGANIZ ATION 01/11/2021 [facility] DATE CREATED AUTHOR AUTHOR'S ORGANIZ ATION 08/24/2023 [facility] DATE CREATED AUTHOR AUTHOR'S ORGANIZ ATION 11/03/2023 [facility] DATE CREATED AUTHOR AUTHOR'S ORGANIZ ATION 11/19/2023 [facility] DATE CREATED AUTHOR AUTHOR'S ORGANIZ ATION 04/26/2024 [facility] DATE CREATED AUTHOR AUTHOR'S ORGANIZ ATION 11/09/2024 [facility] Source Comments (unrecognize d section and content) In the event this informatio n is protected by the Federal Confidentiality of Alcohol and Drug Abuse Patient Records regulations: The Federal rules restrict any use of the information to criminally investigate or prosecute any alcohol or drug abuse patient.[facility]In the event this information is protected by the Federal Confidentiality of Alcohol and Drug Abuse Patient Records regulations: The Federal rules restrict any use of the information to criminally investigate or prosecute any alcohol or drug abuse patient.[facility]bleIn the event this information is protected by the Federal Confidentiality of Alcohol and Drug Abuse Patient Records regulations: The Federal rules restrict any use of the information to criminally investigate or prosecute any alcohol or drug abuse patient.[facility]bleIn the event this information is protected by the Federal Confidentiality of Alcohol and Drug Abuse Patient Records regulations: The Federal rules restrict any use of the information to criminally investigate or prosecute any alcohol or drug abuse patient.[facility]bleIn the event this information is protected by the Federal Confidentiality of Alcohol and Drug Abuse Patient Records regulations: The Federal rules restrict any use of the information to criminally investigate or prosecute any alcohol or drug abuse patient.[facility]bleIn the event this information is protected by the Federal Confidentiality of Alcohol and Drug Abuse Patient Records regulations: The Federal rules restrict any use of the information to criminally investigate or prosecute any alcohol or drug abuse patient.[facility]bleIn the event this information is protected by the Federal Confidentiality of Alcohol and Drug Abuse Patient Records regulations: The Federal rules restrict any use of the information to criminally investigate or prosecute any alcohol or drug abuse patient.[facility]bleIn the event this information is protected by the Federal Confidentiality of Alcohol and Drug Abuse Patient Records regulations: The Federal rules restrict any use of the information to criminally investigate or prosecute any alcohol or drug abuse patient.[facility]bleIn the event this information is protected by the Federal Confidentiality of Alcohol and Drug Abuse Patient Records regulations: The Federal rules restrict any use of the information to criminally investigate or prosecute any alcohol or drug abuse patient.[facility]bleIn the event this information is protected by the Federal Confidentiality of Alcohol and Drug Abuse Patient Records regulations: The Federal rules restrict any use of the information to criminally investigate or prosecute any alcohol or drug abuse patient.[facility]bleIn the event this information is protected by the Federal Confidentiality of Alcohol and Drug Abuse Patient Records regulations: The Federal rules restrict any use of the information to criminally investigate or prosecute any alcohol or drug abuse patient.[facility]bleIn the event this information is protected by the Federal Confidentiality of Alcohol and Drug Abuse Patient Records regulations: The Federal rules restrict any use of the information to criminally investigate or prosecute any alcohol or drug abuse patient.[facility]bleIn the event this information is protected by the Federal Confidentiality of Alcohol and Drug Abuse Patient Records regulations: The Federal rules restrict any use of the information to criminally investigate or prosecute any alcohol or drug abuse patient.[facility]bleIn the event this information is protected by the Federal Confidentiality of Alcohol and Drug Abuse Patient Records regulations: The Federal rules restrict any use of the information to criminally investigate or prosecute any alcohol or drug abuse patient.[facility]bleIn the event this information is protected by the Federal Confidentiality of Alcohol and Drug Abuse Patient Records regulations: The Federal rules restrict any use of the information to criminally investigate or prosecute any alcohol or drug abuse patient.[facility]bleIn the event this information is protected by the Federal Confidentiality of Alcohol and Drug Abuse Patient Records regulations: The Federal rules restrict any use of the information to criminally investigate or prosecute any alcohol or drug abuse patient.[facility]bleIn the event this information is protected by the Federal Confidentiality of Alcohol and Drug Abuse Patient Records regulations: The Federal rules restrict any use of the information to criminally investigate or prosecute any alcohol or drug abuse patient.[facility]bleIn the event this information is protected by the Federal Confidentiality of Alcohol and Drug Abuse Patient Records regulations: The Federal rules restrict any use of the information to criminally investigate or prosecute any alcohol or drug abuse patient.[facility]bleIn the event this information is protected by the Federal Confidentiality of Alcohol and Drug Abuse Patient Records regulations: The Federal rules restrict any use of the information to criminally investigate or prosecute any alcohol or drug abuse patient.[facility]bleIn the event this information is protected by the Federal Confidentiality of Alcohol and Drug Abuse Patient Records regulations: The Federal rules restrict any use of the information to criminally investigate or prosecute any alcohol or drug abuse patient.[facility]bleIn the event this information is protected by the Federal Confidentiality of Alcohol and Drug Abuse Patient Records regulations: The Federal rules restrict any use of the information to criminally investigate or prosecute any alcohol or drug abuse patient.[facility]bleIn the event this information is protected by the Federal Confidentiality of Alcohol and Drug Abuse Patient Records regulations: The Federal rules restrict any use of the information to criminally investigate or prosecute any alcohol or drug abuse patient.[facility]In the event this information is protected by the Federal Confidentiality of Alcohol and Drug Abuse Patient Records regulations: The Federal rules restrict any use of the information to criminally investigate or prosecute any alcohol or drug abuse patient.[facility]In the event this information is protected by the Federal Confidentiality of Alcohol and Drug Abuse Patient Records regulations: The Federal rules restrict any use of the information to criminally investigate or prosecute any alcohol or drug abuse patient.[facility]bleIn the event this information is protected by the Federal Confidentiality of Alcohol and Drug Abuse Patient Records regulations: The Federal rules restrict any use of the information to criminally investigate or prosecute any alcohol or drug abuse patient.[facility]bleIn the event this information is protected by the Federal Confidentiality of Alcohol and Drug Abuse Patient Records regulations: The Federal rules restrict any use of the information to criminally investigate or prosecute any alcohol or drug abuse patient.[facility]bleIn the event this information is protected by the Federal Confidentiality of Alcohol and Drug Abuse Patient Records regulations: The Federal rules restrict any use of the information to criminally investigate or prosecute any alcohol or drug abuse patient.[facility]bleIn the event this information is protected by the Federal Confidentiality of Alcohol and Drug Abuse Patient Records regulations: The Federal rules restrict any use of the information to criminally investigate or prosecute any alcohol or drug abuse patient.[facility]bleIn the event this information is protected by the Federal Confidentiality of Alcohol and Drug Abuse Patient Records regulations: The Federal rules restrict any use of the information to criminally investigate or prosecute any alcohol or drug abuse patient.[facility]bleIn the event this information is protected by the Federal Confidentiality of Alcohol and Drug Abuse Patient Records regulations: The Federal rules restrict any use of the information to criminally investigate or prosecute any alcohol or drug abuse patient.[facility]bleIn the event this information is protected by the Federal Confidentiality of Alcohol and Drug Abuse Patient Records regulations: The Federal rules restrict any use of the information to criminally investigate or prosecute any alcohol or drug abuse patient.[facility]bleIn the event this information is protected by the Federal Confidentiality of Alcohol and Drug Abuse Patient Records regulations: The Federal rules restrict any use of the information to criminally investigate or prosecute any alcohol or drug abuse patient.[facility]bleIn the event this information is protected by the Federal Confidentiality of Alcohol and Drug Abuse Patient Records regulations: The Federal rules restrict any use of the information to criminally investigate or prosecute any alcohol or drug abuse patient.[facility]bleIn the event this information is protected by the Federal Confidentiality of Alcohol and Drug Abuse Patient Records regulations: The Federal rules restrict any use of the information to criminally investigate or prosecute any alcohol or drug abuse patient.[facility]bleIn the event this information is protected by the Federal Confidentiality of Alcohol and Drug Abuse Patient Records regulations: The Federal rules restrict any use of the information to criminally investigate or prosecute any alcohol or drug abuse patient.[facility]bleIn the event this information is protected by the Federal Confidentiality of Alcohol and Drug Abuse Patient Records regulations: The Federal rules restrict any use of the information to criminally investigate or prosecute any alcohol or drug abuse patient.[facility]bleIn the event this information is protected by the Federal Confidentiality of Alcohol and Drug Abuse Patient Records regulations: The Federal rules restrict any use of the information to criminally investigate or prosecute any alcohol or drug abuse patient.[facility]bleIn the event this information is protected by the Federal Confidentiality of Alcohol and Drug Abuse Patient Records regulations: The Federal rules restrict any use of the information to criminally investigate or prosecute any alcohol or drug abuse patient.[facility]bleIn the event this information is protected by the Federal Confidentiality of Alcohol and Drug Abuse Patient Records regulations: The Federal rules restrict any use of the information to criminally investigate or prosecute any alcohol or drug abuse patient.[facility]bleIn the event this information is protected by the Federal Confidentiality of Alcohol and Drug Abuse Patient Records regulations: The Federal rules restrict any use of the information to criminally investigate or prosecute any alcohol or drug abuse patient.[facility]bleIn the event this information is protected by the Federal Confidentiality of Alcohol and Drug Abuse Patient Records regulations: The Federal rules restrict any use of the information to criminally investigate or prosecute any alcohol or drug abuse patient.[facility]bleIn the event this information is protected by the Federal Confidentiality of Alcohol and Drug Abuse Patient Records regulations: The Federal rules restrict any use of the information to criminally investigate or prosecute any alcohol or drug abuse patient.[facility]bleIn the event this information is protected by the Federal Confidentiality of Alcohol and Drug Abuse Patient Records regulations: The Federal rules restrict any use of the information to criminally investigate or prosecute any alcohol or drug abuse patient.[facility]bleIn the event this information is protected by the Federal Confidentiality of Alcohol and Drug Abuse Patient Records regulations: The Federal rules restrict any use of the information to criminally investigate or prosecute any alcohol or drug abuse patient.[facility]bleIn the event this information is protected by the Federal Confidentiality of Alcohol and Drug Abuse Patient Records regulations: The Federal rules restrict any use of the information to criminally investigate or prosecute any alcohol or drug abuse patient.[facility]bleIn the event this information is protected by the Federal Confidentiality of Alcohol and Drug Abuse Patient Records regulations: The Federal rules restrict any use of the information to criminally investigate or prosecute any alcohol or drug abuse patient.[facility]bleIn the event this information is protected by the Federal Confidentiality of Alcohol and Drug Abuse Patient Records regulations: The Federal rules restrict any use of the information to criminally investigate or prosecute any alcohol or drug abuse patient.[facility]bleIn the event this information is protected by the Federal Confidentiality of Alcohol and Drug Abuse Patient Records regulations: The Federal rules restrict any use of the information to criminally investigate or prosecute any alcohol or drug abuse patient.[facility]bleIn the event this information is protected by the Federal Confidentiality of Alcohol and Drug Abuse Patient Records regulations: The Federal rules restrict any use of the information to criminally investigate or prosecute any alcohol or drug abuse patient.[facility]bleIn the event this information is protected by the Federal Confidentiality of Alcohol and Drug Abuse Patient Records regulations: The Federal rules restrict any use of the information to criminally investigate or prosecute any alcohol or drug abuse patient.[facility]In the event this information is protected by the Federal Confidentiality of Alcohol and Drug Abuse Patient Records regulations: The Federal rules restrict any use of the information to criminally investigate or prosecute any alcohol or drug abuse patient.[facility]bleIn the event this information is protected by the Federal Confidentiality of Alcohol and Drug Abuse Patient Records regulations: The Federal rules restrict any use of the information to criminally investigate or prosecute any alcohol or drug abuse patient.[facility]In the event this information is protected by the Federal Confidentiality of Alcohol and Drug Abuse Patient Records regulations: The Federal rules restrict any use of the information to criminally investigate or prosecute any alcohol or drug abuse patient.[facility]bleIn the event this information is protected by the Federal Confidentiality of Alcohol and Drug Abuse Patient Records regulations: The Federal rules restrict any use of the information to criminally investigate or prosecute any alcohol or drug abuse patient.[facility]bleIn the event this information is protected by the Federal Confidentiality of Alcohol and Drug Abuse Patient Records regulations: The Federal rules restrict any use of the information to criminally investigate or prosecute any alcohol or drug abuse patient.[facility]In the event this information is protected by the Federal Confidentiality of Alcohol and Drug Abuse Patient Records regulations: The Federal rules restrict any use of the information to criminally investigate or prosecute any alcohol or drug abuse patient.[facility]In the event this information is protected by the Federal Confidentiality of Alcohol and Drug Abuse Patient Records regulations: The Federal rules restrict any use of the information to criminally investigate or prosecute any alcohol or drug abuse patient.[facility]bleIn the event this information is protected by the Federal Confidentiality of Alcohol and Drug Abuse Patient Records regulations: The Federal rules restrict any use of the information to criminally investigate or prosecute any alcohol or drug abuse patient.[facility]bleIn the event this information is protected by the Federal Confidentiality of Alcohol and Drug Abuse Patient Records regulations: The Federal rules restrict any use of the information to criminally investigate or prosecute any alcohol or drug abuse patient.[facility]bleIn the event this information is protected by the Federal Confidentiality of Alcohol and Drug Abuse Patient Records regulations: The Federal rules restrict any use of the information to criminally investigate or prosecute any alcohol or drug abuse patient.[facility]bleIn the event this information is protected by the Federal Confidentiality of Alcohol and Drug Abuse Patient Records regulations: The Federal rules restrict any use of the information to criminally investigate or prosecute any alcohol or drug abuse patient.[facility]bleIn the event this information is protected by the Federal Confidentiality of Alcohol and Drug Abuse Patient Records regulations: The Federal rules restrict any use of the information to criminally investigate or prosecute any alcohol or drug abuse patient.[facility]bleIn the event this information is protected by the Federal Confidentiality of Alcohol and Drug Abuse Patient Records regulations: The Federal rules restrict any use of the information to criminally investigate or prosecute any alcohol or drug abuse patient.[facility]bleIn the event this information is protected by the Federal Confidentiality of Alcohol and Drug Abuse Patient Records regulations: The Federal rules restrict any use of the information to criminally investigate or prosecute any alcohol or drug abuse patient.[facility]bleIn the event this information is protected by the Federal Confidentiality of Alcohol and Drug Abuse Patient Records regulations: The Federal rules restrict any use of the information to criminally investigate or prosecute any alcohol or drug abuse patient.[facility]bleIn the event this information is protected by the Federal Confidentiality of Alcohol and Drug Abuse Patient Records regulations: The Federal rules restrict any use of the information to criminally investigate or prosecute any alcohol or drug abuse patient.[facility]bleIn the event this information is protected by the Federal Confidentiality of Alcohol and Drug Abuse Patient Records regulations: The Federal rules restrict any use of the information to criminally investigate or prosecute any alcohol or drug abuse patient.[facility]bleIn the event this information is protected by the Federal Confidentiality of Alcohol and Drug Abuse Patient Records regulations: The Federal rules restrict any use of the information to criminally investigate or prosecute any alcohol or drug abuse patient.[facility]bleIn the event this information is protected by the Federal Confidentiality of Alcohol and Drug Abuse Patient Records regulations: The Federal rules restrict any use of the information to criminally investigate or prosecute any alcohol or drug abuse patient.[facility]In the event this information is protected by the Federal Confidentiality of Alcohol and Drug Abuse Patient Records regulations: The Federal rules restrict any use of the information to criminally investigate or prosecute any alcohol or drug abuse patient.[facility]In the event this information is protected by the Federal Confidentiality of Alcohol and Drug Abuse Patient Records regulations: The Federal rules restrict any use of the information to criminally investigate or prosecute any alcohol or drug abuse patient.[facility]bleIn the event this information is protected by the Federal Confidentiality of Alcohol and Drug Abuse Patient Records regulations: The Federal rules restrict any use of the information to criminally investigate or prosecute any alcohol or drug abuse patient.[facility]In the event this information is protected by the Federal Confidentiality of Alcohol and Drug Abuse Patient Records regulations: The Federal rules restrict any use of the information to criminally investigate or prosecute any alcohol or drug abuse patient.[facility]In the event this information is protected by the Federal Confidentiality of Alcohol and Drug Abuse Patient Records regulations: The Federal rules restrict any use of the information to criminally investigate or prosecute any alcohol or drug abuse patient.[facility]In the event this information is protected by the Federal Confidentiality of Alcohol and Drug Abuse Patient Records regulations: The Federal rules restrict any use of the information to criminally investigate or prosecute any alcohol or drug abuse patient.[facility]bleIn the event this information is protected by the Federal Confidentiality of Alcohol and Drug Abuse Patient Records regulations: The Federal rules restrict any use of the information to criminally investigate or prosecute any alcohol or drug abuse patient.[facility]bleIn the event this information is protected by the Federal Confidentiality of Alcohol and Drug Abuse Patient Records regulations: The Federal rules restrict any use of the information to criminally investigate or prosecute any alcohol or drug abuse patient.[facility]bleIn the event this information is protected by the Federal Confidentiality of Alcohol and Drug Abuse Patient Records regulations: The Federal rules restrict any use of the information to criminally investigate or prosecute any alcohol or drug abuse patient.[facility] PrebleIn the event this information is protected by the Federal Confidentiality of Alcohol and Drug Abuse Patient Records regulations: The Federal rules restrict any use of the information to criminally investigate or prosecute any alcohol or drug abuse patient.[facility] PrebleIn the event this information is protected by the Federal Confidentiality of Alcohol and Drug Abuse Patient Records regulations: The Federal rules restrict any use of the information to criminally investigate or prosecute any alcohol or drug abuse patient.[facility] PrebleIn the event this information is protected by the Federal Confidentiality of Alcohol and Drug Abuse Patient Records regulations: The Federal rules restrict any use of the information to criminally investigate or prosecute any alcohol or drug abuse patient.[facility] PrebleIn the event this information is protected by the Federal Confidentiality of Alcohol and Drug Abuse Patient Records regulations: The Federal rules restrict any use of the information to criminally investigate or prosecute any alcohol or drug abuse patient.[facility] PrebleIn the event this information is protected by the Federal Confidentiality of Alcohol and Drug Abuse Patient Records regulations: The Federal rules restrict any use of the information to criminally investigate or prosecute any alcohol or drug abuse patient.[facility] PrebleIn the event this information is protected by the Federal Confidentiality of Alcohol and Drug Abuse Patient Records regulations: The Federal rules restrict any use of the information to criminally investigate or prosecute any alcohol or drug abuse patient.[facility]bleIn the event this information is protected by the Federal Confidentiality of Alcohol and Drug Abuse Patient Records regulations: The Federal rules restrict any use of the information to criminally investigate or prosecute any alcohol or drug abuse patient.[facility]bleIn the event this information is protected by the Federal Confidentiality of Alcohol and Drug Abuse Patient Records regulations: The Federal rules restrict any use of the information to criminally investigate or prosecute any alcohol or drug abuse patient.[facility]bleIn the event this information is protected by the Federal Confidentiality of Alcohol and Drug Abuse Patient Records regulations: The Federal rules restrict any use of the information to criminally investigate or prosecute any alcohol or drug abuse patient.[facility]bleIn the event this information is protected by the Federal Confidentiality of Alcohol and Drug Abuse Patient Records regulations: The Federal rules restrict any use of the information to criminally investigate or prosecute any alcohol or drug abuse patient.[facility]bleIn the event this information is protected by the Federal Confidentiality of Alcohol and Drug Abuse Patient Records regulations: The Federal rules restrict any use of the information to criminally investigate or prosecute any alcohol or drug abuse patient.[facility]bleIn the event this information is protected by the Federal Confidentiality of Alcohol and Drug Abuse Patient Records regulations: The Federal rules restrict any use of the information to criminally investigate or prosecute any alcohol or drug abuse patient.[facility]bleIn the event this information is protected by the Federal Confidentiality of Alcohol and Drug Abuse Patient Records regulations: The Federal rules restrict any use of the information to criminally investigate or prosecute any alcohol or drug abuse patient.[facility]bleIn the event this information is protected by the Federal Confidentiality of Alcohol and Drug Abuse Patient Records regulations: The Federal rules restrict any use of the information to criminally investigate or prosecute any alcohol or drug abuse patient.[facility]bleIn the event this information is protected by the Federal Confidentiality of Alcohol and Drug Abuse Patient Records regulations: The Federal rules restrict any use of the information to criminally investigate or prosecute any alcohol or drug abuse patient.[facility]bleIn the event this information is protected by the Federal Confidentiality of Alcohol and Drug Abuse Patient Records regulations: The Federal rules restrict any use of the information to criminally investigate or prosecute any alcohol or drug abuse patient.[facility]bleIn the event this information is protected by the Federal Confidentiality of Alcohol and Drug Abuse Patient Records regulations: The Federal rules restrict any use of the information to criminally investigate or prosecute any alcohol or drug abuse patient.[facility]bleIn the event this information is protected by the Federal Confidentiality of Alcohol and Drug Abuse Patient Records regulations: The Federal rules restrict any use of the information to criminally investigate or prosecute any alcohol or drug abuse patient.[facility]bleIn the event this information is protected by the Federal Confidentiality of Alcohol and Drug Abuse Patient Records regulations: The Federal rules restrict any use of the information to criminally investigate or prosecute any alcohol or drug abuse patient.[facility]bleIn the event this information is protected by the Federal Confidentiality of Alcohol and Drug Abuse Patient Records regulations: The Federal rules restrict any use of the information to criminally investigate or prosecute any alcohol or drug abuse patient.[facility]bleIn the event this information is protected by the Federal Confidentiality of Alcohol and Drug Abuse Patient Records regulations: The Federal rules restrict any use of the information to criminally investigate or prosecute any alcohol or drug abuse patient.[facility]bleIn the event this information is protected by the Federal Confidentiality of Alcohol and Drug Abuse Patient Records regulations: The Federal rules restrict any use of the information to criminally investigate or prosecute any alcohol or drug abuse patient.[facility]bleIn the event this information is protected by the Federal Confidentiality of Alcohol and Drug Abuse Patient Records regulations: The Federal rules restrict any use of the information to criminally investigate or prosecute any alcohol or drug abuse patient.[facility]bleIn the event this information is protected by the Federal Confidentiality of Alcohol and Drug Abuse Patient Records regulations: The Federal rules restrict any use of the information to criminally investigate or prosecute any alcohol or drug abuse patient.[facility]bleIn the event this information is protected by the Federal Confidentiality of Alcohol and Drug Abuse Patient Records regulations: The Federal rules restrict any use of the information to criminally investigate or prosecute any alcohol or drug abuse patient.[facility]bleIn the event this information is protected by the Federal Confidentiality of Alcohol and Drug Abuse Patient Records regulations: The Federal rules restrict any use of the information to criminally investigate or prosecute any alcohol or drug abuse patient.[facility]bleIn the event this information is protected by the Federal Confidentiality of Alcohol and Drug Abuse Patient Records regulations: The Federal rules restrict any use of the information to criminally investigate or prosecute any alcohol or drug abuse patient.[facility]bleIn the event this information is protected by the Federal Confidentiality of Alcohol and Drug Abuse Patient Records regulations: The Federal rules restrict any use of the information to criminally investigate or prosecute any alcohol or drug abuse patient.[facility]bleIn the event this information is protected by the Federal Confidentiality of Alcohol and Drug Abuse Patient Records regulations: The Federal rules restrict any use of the information to criminally investigate or prosecute any alcohol or drug abuse patient.[facility]bleIn the event this information is protected by the Federal Confidentiality of Alcohol and Drug Abuse Patient Records regulations: The Federal rules restrict any use of the information to criminally investigate or prosecute any alcohol or drug abuse patient.[facility]bleIn the event this information is protected by the Federal Confidentiality of Alcohol and Drug Abuse Patient Records regulations: The Federal rules restrict any use of the information to criminally investigate or prosecute any alcohol or drug abuse patient.[facility]bleIn the event this information is protected by the Federal Confidentiality of Alcohol and Drug Abuse Patient Records regulations: The Federal rules restrict any use of the information to criminally investigate or prosecute any alcohol or drug abuse patient.[facility]bleIn the event this information is protected by the Federal Confidentiality of Alcohol and Drug Abuse Patient Records regulations: The Federal rules restrict any use of the information to criminally investigate or prosecute any alcohol or drug abuse patient.[facility]bleIn the event this information is protected by the Federal Confidentiality of Alcohol and Drug Abuse Patient Records regulations: The Federal rules restrict any use of the information to criminally investigate or prosecute any alcohol or drug abuse patient.[facility]bleIn the event this information is protected by the Federal Confidentiality of Alcohol and Drug Abuse Patient Records regulations: The Federal rules restrict any use of the information to criminally investigate or prosecute any alcohol or drug abuse patient.[facility]bleIn the event this information is protected by the Federal Confidentiality of Alcohol and Drug Abuse Patient Records regulations: The Federal rules restrict any use of the information to criminally investigate or prosecute any alcohol or drug abuse patient.[facility]bleIn the event this information is protected by the Federal Confidentiality of Alcohol and Drug Abuse Patient Records regulations: The Federal rules restrict any use of the information to criminally investigate or prosecute any alcohol or drug abuse patient.[facility]bleIn the event this information is protected by the Federal Confidentiality of Alcohol and Drug Abuse Patient Records regulations: The Federal rules restrict any use of the information to criminally investigate or prosecute any alcohol or drug abuse patient.[facility]bleIn the event this information is protected by the Federal Confidentiality of Alcohol and Drug Abuse Patient Records regulations: The Federal rules restrict any use of the information to criminally investigate or prosecute any alcohol or drug abuse patient.[facility]bleIn the event this information is protected by the Federal Confidentiality of Alcohol and Drug Abuse Patient Records regulations: The Federal rules restrict any use of the information to criminally investigate or prosecute any alcohol or drug abuse patient.[facility]bleIn the event this information is protected by the Federal Confidentiality of Alcohol and Drug Abuse Patient Records regulations: The Federal rules restrict any use of the information to criminally investigate or prosecute any alcohol or drug abuse patient.[facility]bleIn the event this information is protected by the Federal Confidentiality of Alcohol and Drug Abuse Patient Records regulations: The Federal rules restrict any use of the information to criminally investigate or prosecute any alcohol or drug abuse patient.[facility]bleIn the event this information is protected by the Federal Confidentiality of Alcohol and Drug Abuse Patient Records regulations: The Federal rules restrict any use of the information to criminally investigate or prosecute any alcohol or drug abuse patient.[facility]bleIn the event this information is protected by the Federal Confidentiality of Alcohol and Drug Abuse Patient Records regulations: The Federal rules restrict any use of the information to criminally investigate or prosecute any alcohol or drug abuse patient.[facility]bleIn the event this information is protected by the Federal Confidentiality of Alcohol and Drug Abuse Patient Records regulations: The Federal rules restrict any use of the information to criminally investigate or prosecute any alcohol or drug abuse patient.[facility]bleIn the event this information is protected by the Federal Confidentiality of Alcohol and Drug Abuse Patient Records regulations: The Federal rules restrict any use of the information to criminally investigate or prosecute any alcohol or drug abuse patient.[facility]bleIn the event this information is protected by the Federal Confidentiality of Alcohol and Drug Abuse Patient Records regulations: The Federal rules restrict any use of the information to criminally investigate or prosecute any alcohol or drug abuse patient.[facility]bleIn the event this information is protected by the Federal Confidentiality of Alcohol and Drug Abuse Patient Records regulations: The Federal rules restrict any use of the information to criminally investigate or prosecute any alcohol or drug abuse patient.[facility]bleIn the event this information is protected by the Federal Confidentiality of Alcohol and Drug Abuse Patient Records regulations: The Federal rules restrict any use of the information to criminally investigate or prosecute any alcohol or drug abuse patient.[facility]bleIn the event this information is protected by the Federal Confidentiality of Alcohol and Drug Abuse Patient Records regulations: The Federal rules restrict any use of the information to criminally investigate or prosecute any alcohol or drug abuse patient.[facility]bleIn the event this information is protected by the Federal Confidentiality of Alcohol and Drug Abuse Patient Records regulations: The Federal rules restrict any use of the information to criminally investigate or prosecute any alcohol or drug abuse patient.[facility]bleIn the event this information is protected by the Federal Confidentiality of Alcohol and Drug Abuse Patient Records regulations: The Federal rules restrict any use of the information to criminally investigate or prosecute any alcohol or drug abuse patient.[facility]bleIn the event this information is protected by the Federal Confidentiality of Alcohol and Drug Abuse Patient Records regulations: The Federal rules restrict any use of the information to criminally investigate or prosecute any alcohol or drug abuse patient.[facility]bleIn the event this information is protected by the Federal Confidentiality of Alcohol and Drug Abuse Patient Records regulations: The Federal rules restrict any use of the information to criminally investigate or prosecute any alcohol or drug abuse patient.[facility]bleIn the event this information is protected by the Federal Confidentiality of Alcohol and Drug Abuse Patient Records regulations: The Federal rules restrict any use of the information to criminally investigate or prosecute any alcohol or drug abuse patient.[facility]bleIn the event this information is protected by the Federal Confidentiality of Alcohol and Drug Abuse Patient Records regulations: The Federal rules restrict any use of the information to criminally investigate or prosecute any alcohol or drug abuse patient.[facility]bleIn the event this information is protected by the Federal Confidentiality of Alcohol and Drug Abuse Patient Records regulations: The Federal rules restrict any use of the information to criminally investigate or prosecute any alcohol or drug abuse patient.[facility]bleIn the event this information is protected by the Federal Confidentiality of Alcohol and Drug Abuse Patient Records regulations: The Federal rules restrict any use of the information to criminally investigate or prosecute any alcohol or drug abuse patient.[facility] Reason for Visit (unrecogniz ed section and content) Reason Comments PT Discharge Specialty Diagnoses / Procedures Referred By Contac t Referred To Contact [facility] Diagnoses Left shoulder pain, unspecified chronicity Lateral epicondylitis of left elbow Procedures CONSULT TO PHYSICAL THERAPY PHYSICAL THERAPY EVALUATION HIGH COMPLEX 45 MINS Maycol Valladares MD [address] [place] [address] [facility] [address] [place] [address] Referral ID Status Reason Start Date Expiration Date Visits Requested Visits Authorized [id number] Authorized PCP Requested Referral Auto-Generate d Referral 07/01/2021 07/01/2022 99 99 Reason Comments Results Reason Comments Establish Care Pain (Shoulder Pain) left shoulder & elb ow pain x years Reason Comments Appointment Reason Comments Abdominal Pain Discuss colonoscopy Reason Onset Date Comments Outpatient Colonoscopy 10/24/2021 Reason Onset Date Comments Preparations For Procedures 10/24/[address] Specialty Diagnoses / Procedures Referred By Crissy t Referred To Contact CT [facility]AG[facility] Diagnoses Diverticulitis RLQ abdominal pain Lower abdominal pain Procedures CT ABD/PEL W IVCON CT ABD & PELVIS W/CONTRAST Alejandrina Harvey APRN.CNP [address] [place] [address] Ct Imaging Referral ID Status Reason Start Date Expiration Date V isits Requested Visits Authorized [id number] Closed Auto-Generate d Referral 10/19/2021 11/18/2022 1 1 Reason Comments Consult colonoscopy Reason Onset Date Comments Outpatient Colonoscopy 11/01/2021 Reason Comments Medication Problem Reason Comments Patient Question Reason Comments Follow Up EGD & Colon Reason Onset Date Comments Refill Request 12/27/2021 Reason Comments 12/05 COLON/ASC KO Reason Comments Follow Up Review lab work Reason Comments Follow Up Reason Comments Consult Reason Comments Refill Request Reason Comments F/U 6 months Reason Comments Established Patient Follow-Up Reason Comments Orders Reason Comments Orders Yankee biotics Reason Comments Sore Throat Cough x 3 days Reason Onset Date Comments Refill Request 01/09/2023 Reason Comments Radiology [place] Specialty Diagnoses / Procedures Referred By Contac t Referred To Contact CT IMAGING Diagnoses Abdominal distension (gaseous) Nausea RUQ abdominal pain Procedures CT ABD/PEL W IVCON CT ABD & PELVIS W/CONTRAST Mandeep Houser DO [address] [place] [address] [place] [id number] Referral ID Status Reason Start Date Expiration Date V isits Requested Visits Authorized [id number] Closed Auto-Generate d Referral 08/22/2022 09/21/2023 1 1 Reason Comments Established Patient Follow-Up Reason Onset Date Comments 07/13/2023 Reason Onset Date Comments Appointment 07/17/2023 Reason Comments Follow Up All Clear Reason Onset Date Comments Transition Of Care 07/20/2023 TCM [facility] Discharge 07/18/23 Reason Comments Hospital F/U Pace maker/defib Reason Onset Date Comments Refill Request 07/25/2023 Reason Comments Patient Update Reason Comments Established Patient Follow up Reason Comments UTI Burning x 4 days Gout Swelling left foot Cough Wheezing x 1 week , had pacemaker placed beginning of july Reason Comments Patient Question Patient Update Reason Comments Follow Up Room 10f/u Has quest ions regarding JardianceECHO Scheduled 11/07/23EKG 08/07/23Defib 07/16/23Inpatient Visit 07/13/23 JohnsonECHO 07/12/23Stress 07/11/23ED 07/10/23 Dr Lobo ConsultedZIO 06/26/23Cath 11/10/21 Reason Comments Follow Up Reports swelling of toe has improved, Top of left foot swollen now Reason Comments Patient Question pacemaker Reason Comments Established Patient Pain Swelling Reason Comments Results FLP Reason Comments Acute Visit Cough, runny nose, f atigue x 09/28 Reason Comments Follow Up Reason Onset Date Comments Refill Request 10/11/2023 Reason Comments lft foot pain and swelling. Saw Dr. 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 Wondering about gout Reason Comments Left Great Toe Pain Reason Comments F/U 3 Month Reason Comments Follow Up Follow up Specialty Diagnoses / Procedures Referred By Crissy t Referred To Contact CT IMAGING Diagnoses Word finding difficulty New onset of headaches after age [address] BRAIN WO IVCON CT HEAD/BRAIN W/O CONTRAST MATERIAL Mandeep Houser DO [address] [place] [address] [place] [id number] Referral ID Status Reason Start Date Expiration Date V isits Requested Visits Authorized [id number] Closed Auto-Generate d Referral 10/31/2023 11/29/2024 1 1 Reason Comments Appointment OMT Reason Comments Results CT Brain 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 Reason Comments Transition Of Care Reason Comments omt Reason Comments OMT Reason Comments CARD Follow Up 3 Month PMH: non-ischemic CM, HTN, Hypothyroidism, LBBB s/p CUT PLUG PACKER-D Reason Comments Establish Care 5 mos follow up Reason Onset Date Comments Refill Request 04/08/2024 Reason Comments Follow Up 2 weeks Reason Onset Date Comments Population Health Navigation Outreach 09/15/2024 ACO, High Risk Reason Comments CARD Follow Up Annual Reason Onset Date Comments Population Health Navigation Outreach 11/05/2024 ACO WORKBENC BLACK PCSA Reason Comments Established Patient 9 month follow up Care Teams (unrecognized sec tion and content) Insurance Salesperson Relationship Specialty Start Date End Date Maycol Valladares MD [address] [place] [address] PCP - General Internal Medicine 06/14/20 Galen Heaton MD [address] [place] [address] Primary Staff Physician Cardiology 07/30/18 Insurance Salesperson Relationship Specialty Start Date End Date Maycol Valladares MD [address] [place] [address] PCP - General Internal Medicine 06/14/20 Galen Heaton MD [address] [place] [address] Primary Staff Physician Cardiology 07/30/18 Insurance Salesperson Relationship Specialty Start Date End Date Maycol Valladares MD [address] [place] [address] PCP - General Internal Medicine 06/14/20 Galen Heaton MD [address] [place] [address] Primary Staff Physician Cardiology 07/30/18 Insurance Salesperson Relationship Specialty Start Date End Date Maycol Valladares MD [address] [place] [address] PCP - General Internal Medicine 06/14/20 Galen Heaton MD [address] [place] [address] Primary Staff Physician Cardiology 07/30/18 Insurance Salesperson Relationship Specialty Start Date End Date Mandeep Houser, DO [address] [facility] [place] [address] PCP - General Family Practice 09/01/21 Galen Heaton MD [address] [place] [address] Primary Staff Physician Cardiology 07/30/18 Insurance Salesperson Relationship Specialty Start Date End Date Mandeep Houser, DO [address] [facility] [place] [address] PCP - General Family Practice 09/01/21 Galen Heaton MD [address] [place] [address] Primary Staff Physician Cardiology 07/30/18 Insurance Salesperson Relationship Specialty Start Date End Date Mandeep Houser, DO [address] [facility] [place] [address] PCP - General Family Practice 09/01/21 Galen Heaton MD [address] [place] [address] Primary Staff Physician Cardiology 07/30/18 Insurance Salesperson Relationship Specialty Start Date End Date Mandeep Houser, DO [address] [facility] [place] [address] PCP - General Family Practice 09/01/21 Galen Heaton MD [address] [place] [address] Primary Staff Physician Cardiology 07/30/18 Insurance Salesperson Relationship Specialty Start Date End Date Maycol Valladares MD [address] [facility] [place] [address] PCP - General Internal Medicine 06/14/20 08/31/21 Mandeep Houser, DO [address] [facility] [place] [address] PCP - General Family Practice 09/01/21 Galen Heaton MD [address] [place] [address] Primary Staff Physician Cardiology 07/30/18 Insurance Salesperson Relationship Specialty Start Date End Date Mandeep Houser, DO [address] [facility] [place] [address] PCP - General Family Practice 09/01/21 Galen Heaton MD [address] [facility] [place] [address] Primary Staff Physician Cardiology 07/30/18 Insurance Salesperson Relationship Specialty Start Date End Date Mandeep Houser, DO [address] [facility] [place] [address] PCP - General Family Practice 09/01/21 Galen Heaton MD [address] [facility] [place] [address] Primary Staff Physician Cardiology 07/30/18 Insurance Salesperson Relationship Specialty Start Date End Date Mandeep Houser, DO [address] [facility] [place] [address] PCP - General Family Practice 09/01/21 Galen Heaton MD [address] [place] [address] Primary Staff Physician Cardiology 07/30/18 Insurance Salesperson Relationship Specialty Start Date End Date Mandeep Houser, DO [address] [facility] [place] [address] PCP - General Family Practice 09/01/21 Galen Heaton MD [address] [place] [address] Primary Staff Physician Cardiology 07/30/18 Insurance Salesperson Relationship Specialty Start Date End Date Mandeep Houser, DO [address] [facility] [place] [address] PCP - General Family Practice 09/01/21 Galen Heaton MD [address] [place] [address] Primary Staff Physician Cardiology 07/30/18 Insurance Salesperson Relationship Specialty Start Date End Date Mandeep Houser, DO [address] [facility] [place] [address] PCP - General Family Practice 09/01/21 Galen Heaton MD [address] [place] [address] Primary Staff Physician Cardiology 07/30/18 Insurance Salesperson Relationship Specialty Start Date End Date Mandeep Houser, DO [address] [place] [address] PCP - General Family Practice 09/01/21 Galen Heaton MD [address] [place] [address] Primary Staff Physician Cardiology 07/30/18 Insurance Salesperson Relationship Specialty Start Date End Date Mandeep Houser, DO [address] [place] [address] PCP - General Family Practice 09/01/21 Galen Heaton MD [address] [place] [address] Primary Staff Physician Cardiology 07/30/18 Insurance Salesperson Relationship Specialty Start Date End Date Mandeep Houser, DO [address] [facility] [place] [address] PCP - General Family Practice 09/01/21 Galen Heaton MD [address] [place] [address] Primary Staff Physician Cardiology 07/30/18 Insurance Salesperson Relationship Specialty Start Date End Date Mandeep Houser, DO [address] [facility] [place] [address] PCP - General Family Practice 09/01/21 Galen Heaton MD [address] [place] [address] Primary Staff Physician Cardiology 07/30/18 Insurance Salesperson Relationship Specialty Start Date End Date Mandeep Houser, DO [address] [facility] [place] [address] PCP - General Family Practice 09/01/21 Galen Heaton MD [address] [place] [address] Primary Staff Physician Cardiology 07/30/18 Insurance Salesperson Relationship Specialty Start Date End Date Mandeep Houser, DO [address] [facility] [place] [address] PCP - General Family Practice 09/01/21 Galen Heaton MD [address] [place] [address] Primary Staff Physician Cardiology 07/30/18 Insurance Salesperson Relationship Specialty Start Date End Date Mandeep Houser, DO [address] [facility] [place] [address] PCP - General Family Practice 09/01/21 Galen Heaton MD [address] [place] [address] Primary Staff Physician Cardiology 07/30/18 Insurance Salesperson Relationship Specialty Start Date End Date Mandeep Houser, DO [address] [facility] [place] [address] PCP - General Family Medicine 09/01/21 Galen Heaton MD [address] [place] [address] Primary Staff Physician Cardiology 07/30/18 Insurance Salesperson Relationship Specialty Start Date End Date Mandeep Houser, DO [address] [facility] [place] [address] PCP - General Family Medicine 09/01/21 Galen Heaton MD [address] [place] [address] Primary Staff Physician Cardiology 07/30/18 Insurance Salesperson Relationship Specialty Start Date End Date Mandeep Houser, DO [address] [facility] [place] [address] PCP - General Family Medicine 09/01/21 Galen Heaton MD [address] [facility] [place] [address] Primary Staff Physician Cardiology 07/30/18 Insurance Salesperson Relationship Specialty Start Date End Date Mandeep Houser, DO [address] [facility] [place] [address] PCP - General Family Medicine 09/01/21 Galen Heaton MD [address] [facility] [place] [address] Primary Staff Physician Cardiology 07/30/18 Insurance Salesperson Relationship Specialty Start Date End Date Mandeep Houser, DO [address] [facility] [place] [address] PCP - General Family Medicine 09/01/21 Galen Heaton MD [address] [facility] [place] [place] [address] Primary Staff Physician Cardiology 07/30/18 Insurance Salesperson Relationship Specialty Start Date End Date Mandeep Houser, DO [address] [facility] [place] [address] PCP - General Family Medicine 09/01/21 Galen Heaton MD [address] [facility] [place] [address] Primary Staff Physician Cardiology 07/30/18 Insurance Salesperson Relationship Specialty Start Date End Date Mandeep Houser, DO [address] [facility] [place] [address] PCP - General Family Medicine 09/01/21 Galen Heaton MD [address] [place] [address] Primary Staff Physician Cardiology 07/30/18 Insurance Salesperson Relationship Specialty Start Date End Date Mandeep Houser, DO [address] [facility] [place] [address] PCP - General Family Medicine 09/01/21 Galen Heaton MD [address] [place] [address] Primary Staff Physician Cardiology 07/30/18 Insurance Salesperson Relationship Specialty Start Date End Date Mandeep Houser, DO [address] [facility] [place] [address] PCP - General Family Medicine 09/01/21 Galen Heaton MD [address] [place] [address] Primary Staff Physician Cardiology 07/30/18 Insurance Salesperson Relationship Specialty Start Date End Date Mandeep Houser, DO [address] [facility] [place] [address] PCP - General Family Medicine 09/01/21 Galen Heaton MD [address] [place] [address] Primary Staff Physician Cardiology 07/30/18 Insurance Salesperson Relationship Specialty Start Date End Date Mandeep Houser, DO [address] [facility] [place] [address] PCP - General Family Medicine 09/01/21 Galen Heaton MD [address] [place] [address] Primary Staff Physician Cardiology 07/30/18 Insurance Salesperson Relationship Specialty Start Date End Date Mandeep Houser, DO [address] [facility] [place] [address] PCP - General Family Medicine 09/01/21 Galen Heaton MD [address] [place] [address] Primary Staff Physician Cardiology 07/30/18 Insurance Salesperson Relationship Specialty Start Date End Date Mandeep Houser DO [address] [facility] [place] [address] PCP - General Family Medicine 09/01/21 Galen Heaton MD [address] [place] [address] Primary Staff Physician Cardiology 07/30/18 Insurance Salesperson Relationship Specialty Start Date End Date Mandeep Houser DO [address] [place] [address] PCP - General Family Medicine 09/01/21 Galen Heaton MD [address] [place] [address] Primary Staff Physician Cardiology 07/30/18 Insurance Salesperson Relationship Specialty Start Date End Date Mandeep Houser DO [address] [place] [address] PCP - General Family Medicine 09/01/21 Galen Heaton MD [address] [place] [address] Primary Staff Physician Cardiology 07/30/18 Insurance Salesperson Relationship Specialty Start Date End Date Mandeep Houser DO [address] [place] [address] PCP - General Family Medicine 09/01/21 Galen Heaton MD [address] [place] [address] Primary Staff Physician Cardiology 07/30/18 Insurance Salesperson Relationship Specialty Start Date End Date Mandeep Houser DO [address] [place] [address] PCP - General Family Medicine 09/01/21 Galen Heaton MD [address] [place] [address] Primary Staff Physician Cardiology 07/30/18 Insurance Salesperson Relationship Specialty Start Date End Date Mandeep Houser DO [address] [place] [address] PCP - General Family Medicine 09/01/21 Galen Heaton MD [address] [place] [address] Primary Staff Physician Cardiology 07/30/18 Insurance Salesperson Relationship Specialty Start Date End Date Mandeep Houser DO [address] [place] [address] PCP - General Family Medicine 09/01/21 Galen Heaton MD [address] [place] [address] Primary Staff Physician Cardiology 07/30/18 Insurance Salesperson Relationship Specialty Start Date End Date Rafael Frank III [address] [phone] PCP - General Family Medicine 09/02/12 05/23/20 Galen Heaton MD [address] [place] [address] Primary Staff Physician Cardiology 07/30/18 Insurance Salesperson Relationship Specialty Start Date End Date Mandeep Houser DO [address] [place] [address] PCP - General Family Medicine 09/01/21 Galen Heaton MD [address] [place] [address] Primary Staff Physician Cardiology 07/30/18 Insurance Salesperson Relationship Specialty Start Date End Date Rafael Frank LISA [address] [phone] PCP - General Family Medicine 09/02/12 05/23/20 Galen Heaton MD [address] [place] [address] Primary Staff Physician Cardiology 07/30/18 Insurance Salesperson Relationship Specialty Start Date End Date Mandeep Houser DO [address] [place], [place] [address] PCP - General Family Medicine 09/01/21 Galen Heaton MD [address] [place] [address] Primary Staff Physician Cardiology 07/30/18 Insurance Salesperson Relationship Specialty Start Date End Date Mandeep Houser DO [address] [place] [address] PCP - General Family Medicine 09/01/21 Galen Heaton MD [address] [place], [place] [address] Primary Staff Physician Cardiology 07/30/18 Insurance Salesperson Relationship Specialty Start Date End Date Mandeep Houser DO [address] [place] [address] PCP - General Family Medicine 09/01/21 Galen Heaton MD [address] [place] [address] Primary Staff Physician Cardiology 07/30/18 Insurance Salesperson Relationship Specialty Start Date End Date Mandeep Houser DO [address] [place] [address] PCP - General Family Medicine 09/01/21 Galen Heaton MD [address] [place], [place] [phone] Primary Staff Physician Cardiology 07/30/18 Insurance Salesperson Relationship Specialty Start Date End Date Mandeep Houser DO [address] [place] [address] PCP - General Family Medicine 09/01/21 Galen Heaton MD [address] [place] [address] Primary Staff Physician Cardiology 07/30/18 Insurance Salesperson Relationship Specialty Start Date End Date Mandeep Houser DO [address] [place] [address] PCP - General Family Medicine 09/01/21 Galen Heaton MD [address] [place] [address] Primary Staff Physician Cardiology 07/30/18 Insurance Salesperson Relationship Specialty Start Date End Date Mandeep Houser DO [address] [place] [address] PCP - General Family Medicine 09/01/21 Galen Heaton MD [address] [place] [address] Primary Staff Physician Cardiology 07/30/18 Insurance Salesperson Relationship Specialty Start Date End Date Mandeep Houser DO [address] [place] [address] PCP - General Family Medicine 09/01/21 Galen Heaton MD [address] [place] [address] Primary Staff Physician Cardiology 07/30/18 Fitz Mcqueen RN [address] [place] [address] Primary Care Sugar Boiler Internal Medicine 07/19/23 Insurance Salesperson Relationship Specialty Start Date End Date Mandeep Houser DO [address] [place] [address] PCP - General Family Medicine 09/01/21 Galen Heaton MD [address] [place] [address] Primary Staff Physician Cardiology 07/30/18 Fitz Mcqueen RN [address] [facility] [place] [address] Primary Care Sugar Boiler Internal Medicine 07/19/23 Insurance Salesperson Relationship Specialty Start Date End Date Mandeep Houser DO [address] [place] [address] PCP - General Family Medicine 09/01/21 Galen Heaton MD [address] [place] [address] Primary Staff Physician Cardiology 07/30/18 Fitz Mcqueen RN [address] [place] [address] Primary Care Sugar Boiler Internal Medicine 07/19/23 Insurance Salesperson Relationship Specialty Start Date End Date Mandeep Houser DO [address] [place] [address] PCP - General Family Medicine 09/01/21 Galen Heaton MD [address] [place] [address] Primary Staff Physician Cardiology 07/30/18 Fitz Mcqueen RN [address] [place] [address] Primary Care Sugar Boiler Internal Medicine 07/19/23 Insurance Salesperson Relationship Specialty Start Date End Date Mandeep Houser DO [address] [place] [address] PCP - General Family Medicine 09/01/21 Galen Heaton MD [address] [facility] [address] Primary Staff Physician Cardiology 07/30/18 Fitz Mcqueen RN [address] [place] [address] Primary Care Sugar Boiler Internal Medicine 07/19/23 Insurance Salesperson Relationship Specialty Start Date End Date Mandeep Houser DO [address] [place] [address] PCP - General Family Medicine 09/01/21 Galen Heaton MD [address] [place] [address] Primary Staff Physician Cardiology 07/30/18 Insurance Salesperson Relationship Specialty Start Date End Date Mandeep Houser DO [address] [place] [address] PCP - General Family Medicine 09/01/21 Galen Heaton MD [address] [facility] [address] Primary Staff Physician Cardiology 07/30/18 Insurance Salesperson Relationship Specialty Start Date End Date Mandeep Houser DO [address] [place] [address] PCP - General Family Medicine 09/01/21 Galen Heaton MD [address] [place] [address] Primary Staff Physician Cardiology 07/30/18 Thuy Aguirre, VICE PRESIDENT OF OPERATIONS.DIRECTOR OF DONOR RELATIONS [address] [place] [address] Cardiology 09/05/23 Team Status: Active Member Role Status Dates Concetta Hall Family Provider Active Dr. Mandeep Houser DO Primary Care Provider Active Team Status: Inactive Member Role Status Dates Dr. Mandeep Houser DO Primary Care Provider Active DEANN ALEJANDRE Attending Provider, Referring Provider Ac tive Team Status: Active Member Role Status Dates Dr. Mandeep Houser DO Primary Care Provider Active DEANN ALEJANDRE Attending Provider, Referring Provider Ac tive Insurance Salesperson Relationship Specialty Start Date End Date Mandeep Houser DO [address] [place] [address] PCP - General Family Medicine 09/01/21 Galen Heaton MD [address] [place] [address] Primary Staff Physician Cardiology 07/30/18 Thuy Aguirre, VICE PRESIDENT OF OPERATIONS.DIRECTOR OF DONOR RELATIONS [address] [place] [address] Cardiology 09/05/23 Insurance Salesperson Relationship Specialty Start Date End Date Mandeep Houser DO [address] [place] [address] PCP - General Family Medicine 09/01/21 Galen Heaton MD [address] [place] [address] Primary Staff Physician Cardiology 07/30/18 Thuy Aguirre, VICE PRESIDENT OF OPERATIONS.DIRECTOR OF DONOR RELATIONS [address] [place] [address] Cardiology 09/05/23 Insurance Salesperson Relationship Specialty Start Date End Date Mandeep Houser DO [address] [place] [address] PCP - General Family Medicine 09/01/21 Galen Heaton MD [address] [place] [address] Primary Staff Physician Cardiology 07/30/18 Thuy Aguirre, VICE PRESIDENT OF OPERATIONS.DIRECTOR OF DONOR RELATIONS [address] [place] [address] Cardiology 09/05/23 Insurance Salesperson Relationship Specialty Start Date End Date Mandeep Houser DO [address] [place] [address] PCP - General Family Medicine 09/01/21 Galen Heaton MD [address] [place] [address] Primary Staff Physician Cardiology 07/30/18 Thuy Aguirre, VICE PRESIDENT OF OPERATIONS.DIRECTOR OF DONOR RELATIONS [address] [place] [address] Cardiology 09/05/23 Insurance Salesperson Relationship Specialty Start Date End Date Mandeep Houser DO [address] [place] [address] PCP - General Family Medicine 09/01/21 Galen Heaton MD [address] [place] [address] Primary Staff Physician Cardiology 07/30/18 Thuy Aguirre, VICE PRESIDENT OF OPERATIONS.DIRECTOR OF DONOR RELATIONS [address] [place] [address] Cardiology 09/05/23 Insurance Salesperson Relationship Specialty Start Date End Date Mandeep Houser DO [address] [place] [address] PCP - General Family Medicine 09/01/21 Galen Heaton MD [address] [place] [address] Primary Staff Physician Cardiology 07/30/18 Thuy Aguirre, VICE PRESIDENT OF OPERATIONS.DIRECTOR OF DONOR RELATIONS [address] [place] [address] Cardiology 09/05/23 Insurance Salesperson Relationship Specialty Start Date End Date Mandeep Houser DO [address] [place] [address] PCP - General Family Medicine 09/01/21 Galen Heaton MD [address] [place] [address] Primary Staff Physician Cardiology 07/30/18 Thuy Aguirre, VICE PRESIDENT OF OPERATIONS.DIRECTOR OF DONOR RELATIONS [address] [place] [address] Cardiology 09/05/23 Insurance Salesperson Relationship Specialty Start Date End Date Mandeep Houser DO [address] [place] [address] PCP - General Family Medicine 09/01/21 Galen Heaton MD [address] [place] [address] Primary Staff Physician Cardiology 07/30/18 Thuy Aguirre, VICE PRESIDENT OF OPERATIONS.DIRECTOR OF DONOR RELATIONS [address] [place] [address] Cardiology 09/05/23 Insurance Salesperson Relationship Specialty Start Date End Date Mandeep Houser DO [address] [place] [address] PCP - General Family Medicine 09/01/21 Galen Heaton MD [address] [place] [address] Primary Staff Physician Cardiology 07/30/18 Thuy Aguirre, VICE PRESIDENT OF OPERATIONS.DIRECTOR OF DONOR RELATIONS [address] [place] [address] Cardiology 09/05/23 Insurance Salesperson Relationship Specialty Start Date End Date Mandeep Houser DO [address] [place] [address] PCP - General Family Medicine 09/01/21 Galen Heaton MD [address] [place] [address] Primary Staff Physician Cardiology 07/30/18 Thuy Aguirre, VICE PRESIDENT OF OPERATIONS.DIRECTOR OF DONOR RELATIONS [address] [place] [address] Cardiology 09/05/23 Insurance Salesperson Relationship Specialty Start Date End Date Mandeep Houser DO [address] [place] [address] PCP - General Family Medicine 09/01/21 Galen Heaton MD [address] [place] [address] Primary Staff Physician Cardiology 07/30/18 Thuy Aguirre, VICE PRESIDENT OF OPERATIONS.DIRECTOR OF DONOR RELATIONS [address] [place] [address] Cardiology 09/05/23 Insurance Salesperson Relationship Specialty Start Date End Date Mandeep Houser DO [address] [place] [address] PCP - General Family Medicine 09/01/21 Galen Heaton MD [address] [place] [address] Primary Staff Physician Cardiology 07/30/18 Thuy Aguirre, VICE PRESIDENT OF OPERATIONS.DIRECTOR OF DONOR RELATIONS [address] [place] [address] Cardiology 09/05/23 Insurance Salesperson Relationship Specialty Start Date End Date Mandeep Houser DO [address] [place] [address] PCP - General Family Medicine 09/01/21 Galen Heaton MD [address] [place] [address] Primary Staff Physician Cardiology 07/30/18 Thuy Aguirre, VICE PRESIDENT OF OPERATIONS.DIRECTOR OF DONOR RELATIONS [address] [place] [address] Cardiology 09/05/23 Insurance Salesperson Relationship Specialty Start Date End Date Mandeep Houser DO [address] [place] [address] PCP - General Family Medicine 09/01/21 Galen Heaton MD [address] [place] [address] Primary Staff Physician Cardiology 07/30/18 Thuy Aguirre, VICE PRESIDENT OF OPERATIONS.DIRECTOR OF DONOR RELATIONS [address] [place] [address] Cardiology 09/05/23 Insurance Salesperson Relationship Specialty Start Date End Date Mandeep Houser DO [address] [place] [address] PCP - General Family Medicine 09/01/21 Galen Heaton MD [address] [place] [address] Primary Staff Physician Cardiology 07/30/18 Thuy Aguirre, VICE PRESIDENT OF OPERATIONS.DIRECTOR OF DONOR RELATIONS [address] [place] [address] Cardiology 09/05/23 ProviderUvaldo MD Toys Inspector 11/18/23 12/01/23 Insurance Salesperson Relationship Specialty Start Date End Date Mandeep Houser DO [address] [place] [address] PCP - General Family Medicine 09/01/21 Galen Heaton MD [address] [place] [address] Primary Staff Physician Cardiology 07/30/18 Thuy Aguirre, VICE PRESIDENT OF OPERATIONS.DIRECTOR OF DONOR RELATIONS [address] [place] [address] Cardiology 09/05/23 Insurance Salesperson Relationship Specialty Start Date End Date Mandeep Houser DO [address] [place] [address] PCP - General Family Medicine 09/01/21 Galen Heaton MD [address] [place] [address] Primary Staff Physician Cardiology 07/30/18 Thuy Aguirre VICE PRESIDENT OF OPERATIONS.DIRECTOR OF DONOR RELATIONS [address] [place] [address] Cardiology 09/05/23 Insurance Salesperson Relationship Specialty Start Date End Date Mandeep Houser DO [address] [place] [address] PCP - General Family Medicine 09/01/21 Galen Heaton MD [address] [place] [address] Primary Staff Physician Cardiology 07/30/18 Thuy Aguirre, VICE PRESIDENT OF OPERATIONS.DIRECTOR OF DONOR RELATIONS [address] [place] [address] Cardiology 09/05/23 Insurance Salesperson Relationship Specialty Start Date End Date Mandeep Houser DO [address] [place] [address] PCP - General Family Medicine 09/01/21 Galen Heaton MD [address] [place] [address] Primary Staff Physician Cardiology 07/30/18 Insurance Salesperson Relationship Specialty Start Date End Date Mandeep Houser DO [address] [place] [address] PCP - General Family Medicine 09/01/21 Galen Heaton MD [address] [place] [address] Primary Staff Physician Cardiology 07/30/18 Thuy Aguirre, VICE PRESIDENT OF OPERATIONS.DIRECTOR OF DONOR RELATIONS [address] [place] [address] Cardiology 09/05/23 Insurance Salesperson Relationship Specialty Start Date End Date Mandeep Houser DO [address] [place] [address] PCP - General Family Medicine 09/01/21 Galen Heaton MD [address] [place], [place] [address] Primary Staff Physician Cardiology 07/30/18 Thuy Aguirre, VICE PRESIDENT OF OPERATIONS.DIRECTOR OF DONOR RELATIONS [address] [place], [place] [id number] Cardiology 09/05/23 Insurance Salesperson Relationship Specialty Start Date End Date Mandeep Houser DO [address] [place] [address] PCP - General Family Medicine 09/01/21 Galen Heaton MD [address] [place], [place] [address] Primary Staff Physician Cardiology 07/30/18 Insurance Salesperson Relationship Specialty Start Date End Date Mandeep Houser DO [address] [place] [address] PCP - General Family Medicine 09/01/21 Galen Heaton MD [address] [place] [address] Primary Staff Physician Cardiology 07/30/18 Thuy Aguirre, VICE PRESIDENT OF OPERATIONS.DIRECTOR OF DONOR RELATIONS [address] [place], [place] [id number] Cardiology 09/05/23 Insurance Salesperson Relationship Specialty Start Date End Date Maycol Valladares MD [address] [place] [address] PCP - General Internal Medicine 06/14/20 08/31/21 Galen Heaton MD [address] [place] [address] Primary Staff Physician Cardiology 07/30/18 Insurance Salesperson Relationship Specialty Start Date End Date Maycol Valladares MD [address] [place] [address] PCP - General Internal Medicine 06/14/20 08/31/21 Galen Heaton MD [address] [place] [address] Primary Staff Physician Cardiology 07/30/18 Insurance Salesperson Relationship Specialty Start Date End Date Mandeep Houser DO [address] [place] [address] PCP - General Family Medicine 09/01/21 Galen Heaton MD [address] [place] [address] Primary Staff Physician Cardiology 07/30/18 Thuy Aguirre, VICE PRESIDENT OF OPERATIONS.DIRECTOR OF DONOR RELATIONS [address] [place] [address] Cardiology 09/05/23 Insurance Salesperson Relationship Specialty Start Date End Date Mandeep Houser DO [address] [place] [address] PCP - General Family Medicine 09/01/21 Galen Heaton MD [address] [place] [address] Primary Staff Physician Cardiology 07/30/18 Thuy Aguirre, VICE PRESIDENT OF OPERATIONS.DIRECTOR OF DONOR RELATIONS [address] [place] [address] Cardiology 09/05/23 Insurance Salesperson Relationship Specialty Start Date End Date Mandeep Houser DO [address] [place] [address] PCP - General Family Medicine 09/01/21 Galen Heaton MD [address] [place] [address] Primary Staff Physician Cardiology 07/30/18 Thuy Aguirre, VICE PRESIDENT OF OPERATIONS.DIRECTOR OF DONOR RELATIONS [address] [place] [address] Cardiology 09/05/23 Insurance Salesperson Relationship Specialty Start Date End Date Mandeep Houser DO [address] [place] [address] PCP - General Family Medicine 09/01/21 Galen Heaton MD [address] [place] [address] Primary Staff Physician Cardiology 07/30/18 Thuy Aguirre, VICE PRESIDENT OF OPERATIONS.DIRECTOR OF DONOR RELATIONS [address] [place] [address] Cardiology 09/05/23 Insurance Salesperson Relationship Specialty Start Date End Date Mandeep Houser DO [address] [place] [address] PCP - General Family Medicine 09/01/21 Galen Heaton MD [address] [place] [address] Primary Staff Physician Cardiology 07/30/18 Thuy Aguirre, VICE PRESIDENT OF OPERATIONS.DIRECTOR OF DONOR RELATIONS [address] [place] [address] Cardiology 09/05/23 Rupali Nascimento, VICE PRESIDENT OF OPERATIONS.DIRECTOR OF DONOR RELATIONS [address] [place] [address] Toys Inspector Family Medicine 04/20/24 [facility] VICE PRESIDENT OF OPERATIONS.DIRECTOR OF DONOR RELATIONS [address] [place] [address] Toys Inspector Family Medicine 04/20/24 Insurance Salesperson Relationship Specialty Start Date End Date Mandeep Houser DO [address] [place] [address] PCP - General Family Medicine 09/01/21 Galen Heaton MD [address] [place] [address] Primary Staff Physician Cardiology 07/30/18 Thuy Aguirre, VICE PRESIDENT OF OPERATIONS.DIRECTOR OF DONOR RELATIONS [address] [place] [address] Cardiology 09/05/23 Rupali Nascimento, VICE PRESIDENT OF OPERATIONS.DIRECTOR OF DONOR RELATIONS [address] [place] [address] Toys Inspector Family Medicine 04/20/24 [facility] VICE PRESIDENT OF OPERATIONS.DIRECTOR OF DONOR RELATIONS [address] [place] [address] Toys Inspector Family Medicine 04/20/24 Insurance Salesperson Relationship Specialty Start Date End Date Mandeep Houser DO [address] [place] [address] PCP - General Family Medicine 09/01/21 Galen Heaton MD [address] [place] [address] Primary Staff Physician Cardiology 07/30/18 Thuy Aguirre VICE PRESIDENT OF OPERATIONS.DIRECTOR OF DONOR RELATIONS [address] [place] [address] Cardiology 09/05/23 Rupali Nascimento VICE PRESIDENT OF OPERATIONS.DIRECTOR OF DONOR RELATIONS [address] [place] [address] Toys Inspector Family Medicine 04/20/24 Alejandrina Harvey APRN.DIRECTOR OF DONOR RELATIONS [address] [place] [address] Toys Inspector Family Medicine 04/20/24 Insurance Salesperson Relationship Specialty Start Date End Date Mandeep Houser DO [address] [place] [address] PCP - General Family Medicine 09/01/21 Galen Heaton MD [address] [place] [address] Primary Staff Physician Cardiology 07/30/18 Thuy Aguirre VICE PRESIDENT OF OPERATIONS.DIRECTOR OF DONOR RELATIONS [address] [place] [address] Cardiology 09/05/23 Rupali Nascimento VICE PRESIDENT OF OPERATIONS.DIRECTOR OF DONOR RELATIONS [address] [place] [address] Toys Inspector Family Medicine 04/20/24 Alejandrina Harvey VICE PRESIDENT OF OPERATIONS.DIRECTOR OF DONOR RELATIONS [address] [place] [address] Toys Inspector Family Medicine 04/20/24 Insurance Salesperson Relationship Specialty Start Date End Date Mandeep Houser DO [address] [place] [address] PCP - General Family Medicine 09/01/21 Galen Heaton MD [address] [place] [address] Primary Staff Physician Cardiology 07/30/18 Thuy Aguirre, VICE PRESIDENT OF OPERATIONS.DIRECTOR OF DONOR RELATIONS [address] [place], [place] [id number] Cardiology 09/05/23 Rupali Nascimento, VICE PRESIDENT OF OPERATIONS.DIRECTOR OF DONOR RELATIONS [address] [place] [address] Toys Inspector Family Medicine 04/20/24 Alejandrina Harvey, VICE PRESIDENT OF OPERATIONS.DIRECTOR OF DONOR RELATIONS [address] [place] [address] Toys Inspector Family [facility] 04/20/24 Insurance Salesperson Relationship Specialty Start Date End Date Mandeep Houser DO [address] [place] [address] PCP - General Family Medicine 09/01/21 Galen Heaton MD [address] [place] [address] Primary Staff Physician Cardiology 07/30/18 Thuy Aguirre, VICE PRESIDENT OF OPERATIONS.DIRECTOR OF DONOR RELATIONS [address] [place], [place] [id number] Cardiology 09/05/23 Rupali Nascimento, VICE PRESIDENT OF OPERATIONS.DIRECTOR OF DONOR RELATIONS [address] [place] [address] [facility] 04/20/24 Alejandrina Harvey, VICE PRESIDENT OF OPERATIONS.DIRECTOR OF DONOR RELATIONS [address] [place] [address] [facility] 04/20/24 Insurance Salesperson Relationship Specialty Start Date End Date Mandeep Houser DO [address] [place] [address] PCP - General Family Medicine 09/01/21 Galen Heaton MD [address] [place], [place] [id number] Primary Staff Physician Cardiology 07/30/18 Thuy Aguirre, VICE PRESIDENT OF OPERATIONS.DIRECTOR OF DONOR RELATIONS [address] [place], [place] [id number] Cardiology 09/05/23 Rupali Nascimento, VICE PRESIDENT OF OPERATIONS.DIRECTOR OF DONOR RELATIONS [address] [place] [address] [facility] 04/20/24 Alejandrina Harvey, VICE PRESIDENT OF OPERATIONS.DIRECTOR OF DONOR RELATIONS [address] [place] [address] [facility] 04/20/24 Insurance Salesperson Relationship Specialty Start Date End Date Mandeep Houser DO [address] [place] [address] PCP - General Family Medicine 09/01/21 Galen Heaton MD [address] [place], [place] [id number] Primary Staff Physician Cardiology 07/30/18 Thuy Aguirre, VICE PRESIDENT OF OPERATIONS.DIRECTOR OF DONOR RELATIONS [address] [place] [address] Cardiology 09/05/23 Alejandrina Harvey, VICE PRESIDENT OF OPERATIONS.DIRECTOR OF DONOR RELATIONS [address] [place] [address] [facility] 04/20/24 Insurance Salesperson Relationship Specialty Start Date End Date Mandeep Houser DO [address] [place] [address] PCP - General Family Medicine 09/01/21 Galen Heaton MD [address] [place] [address] Primary Staff Physician Cardiology 07/30/18 Thuy Aguirre, VICE PRESIDENT OF OPERATIONS.DIRECTOR OF DONOR RELATIONS [address] [place] [address] Cardiology 09/05/23 Alejandrina Harvey, VICE PRESIDENT OF OPERATIONS.DIRECTOR OF DONOR RELATIONS [address] [place] [address] [facility] 04/20/24 Insurance Salesperson Relationship Specialty Start Date End Date Mandeep Houser DO [address] [place] [address] PCP - General Family Medicine 09/01/21 Galen Heaton MD [address] [place] [address] Primary Staff Physician Cardiology 07/30/18 Thuy Aguirre VICE PRESIDENT OF OPERATIONS.DIRECTOR OF DONOR RELATIONS [address] [place] [address] Cardiology 09/05/23 Alejandrina Harvey, VICE PRESIDENT OF OPERATIONS.DIRECTOR OF DONOR RELATIONS [address] [place] [address] Toys Inspector Family Medicine 04/20/24 Insurance Salesperson Relationship Specialty Start Date End Date Mandeep Houser DO [address] [place] [address] PCP - General Family Medicine 09/01/21 Galen Heaton MD [address] [place] [address] Primary Staff Physician Cardiology 07/30/18 Thuy Aguirre, VICE PRESIDENT OF OPERATIONS.DIRECTOR OF DONOR RELATIONS [address] [place], [place] [id number] Cardiology 09/05/23 Alejandrina Harvey, VICE PRESIDENT OF OPERATIONS.DIRECTOR OF DONOR RELATIONS [address] [place] [address] Toys Inspector [facility] Medicine 04/20/24 Insurance Salesperson Relationship Specialty Start Date End Date Mandeep Houser DO [address] [place] [address] PCP - General Family Medicine 09/01/21 Galen Heaton MD [address] [place] [address] Primary Staff Physician Cardiology 07/30/18 Thuy Aguirre, VICE PRESIDENT OF OPERATIONS.DIRECTOR OF DONOR RELATIONS [address] [place], [place] [id number] Cardiology 09/05/23 Alejandrina Harvey, VICE PRESIDENT OF OPERATIONS.DIRECTOR OF DONOR RELATIONS [address] [place] [address] Toys Inspector Family Medicine 04/20/24 Insurance Salesperson Relationship Specialty Start Date End Date Mandeep Houser DO [address] [place] [address] PCP - General Family Medicine 09/01/21 Galen Heaton MD [address] [place] [address] Primary Staff Physician Cardiology 07/30/18 Thuy Aguirre, VICE PRESIDENT OF OPERATIONS.DIRECTOR OF DONOR RELATIONS [address] [place], [place] [id number] Cardiology 09/05/23 Alejandrina Harvey, VICE PRESIDENT OF OPERATIONS.DIRECTOR OF DONOR RELATIONS [facility] [place] [address] Toys Inspector Family Medicine 04/20/24 Brittani Yap, VICE PRESIDENT OF OPERATIONS.DIRECTOR OF DONOR RELATIONS [facility] [place] [address] Toys Inspector Family Medicine 10/27/24 Insurance Salesperson Relationship Specialty Start Date End Date Mandeep Houser DO [address] [place] [address] PCP - General Family Medicine 09/01/21 Galen Heaton MD [address] [place] [address] Primary Staff Physician Cardiology 07/30/18 Thuy Aguirre VICE PRESIDENT OF OPERATIONS.DIRECTOR OF DONOR RELATIONS [address] [place], [place] [id number] Cardiology 09/05/23 Alejandrina Harvey, VICE PRESIDENT OF OPERATIONS.DIRECTOR OF DONOR RELATIONS [address] [place] [address] Toys Inspector Family Medicine 04/20/24 Brittani Yap, VICE PRESIDENT OF OPERATIONS.DIRECTOR OF DONOR RELATIONS [address] [place], [place] [address] [facility] 10/27/24 Insurance Salesperson Relationship Specialty Start Date End Date Mandeep Houser DO [address] [place] [address] PCP - General Family Medicine 09/01/21 Galen Heaton MD [address] [place] [address] Primary Staff Physician Cardiology 07/30/18 Thuy Aguirre, VICE PRESIDENT OF OPERATIONS.DIRECTOR OF DONOR RELATIONS [address], [place] [id number] Cardiology 09/05/23 Alejandrina Harvey, VICE PRESIDENT OF OPERATIONS.DIRECTOR OF DONOR RELATIONS [address] [place] [address] [facility] 04/20/24 Brittani Yap, VICE PRESIDENT OF OPERATIONS.DIRECTOR OF DONOR RELATIONS [address] [place], [place] [address] [facility] 10/27/24 Team Status: Active Member Role/Relationship Status Dates Dr. Madneep Houser DO Primary Care Provider Active Team Status: Inactive Member Role/Relationship Status Dates Dr. Mandeep Houser DO Primary Care Provider Active Start: November 13, 2024 End: November 13, 2024 Dr. Jose Goldberg MD Emergency Provider Active Start: November 13, 2024 End: November 13, 2024 Goals (unrecognized section and content) Goals may be documented in a n alternate sectionGoals may be documented in an alternate sectionGoals may be documented in an alternate section FOR RECORDS PERTAINING TO PATIENTS WHO ARE OR HAVE BEEN ENROLLED IN A CHEMICAL DEPENDENCY/SUBSTANCEABUSE PROGRAM, SOME INFORMATION MAY BE OMITTED. This clinical summary was aggregated from multiple sources. Caution should be exercised in using it in the provision of clinical care. This summary normalizes information from multiple sources, and as a consequence, information in this document may materially change the coding, format and clinical context of patient data. In addition, data may be omitted in some cases. CLINICAL DECISIONS SHOULD BE BASED ON THE PRIMARY CLINICAL RECORDS. [facility] [employer] [facility] provides no warranty or guarantee of the accuracy or completeness of information in this document.
--- OUTSIDE RECORDS SUMMARY | 2024-11-14 01:18 | XMS RPT_ITS | CCD ---
Author Organization [facility] Care Team Providers Care Public Works Supervisor Name Role Phone Rafael Frankolphus Unavailable Unavailab [...] Mandeep Houser DO Primary Care Provider Timothy TONGN.MEDICAL DEVICE SALES, Thuy Serrato Unavailable [phone] FLACA GREENFIELD Attending Unavailable HOUSER, MANDEEP L [...] Maycol Valladares MD Primary Care Provider [phone] Azam CONDUIT BENDER.MEDICAL DEVICE SALES, Rupali Adelina Unavailable Yasir CONDUIT BENDER.MEDICAL DEVICE SALES, Alejandrina Unavailable ZAINAB, CH Referring Unavailable Houser, [...] Care Unavailable ZAINAB, CH Attending Unavailable Marely CONDUIT BENDER.MEDICAL DEVICE SALES, Brittani Ji Unavailable [phone] HOUSER, MANDEEP [...] Primary Care Unavailable HOUSER, MANDEEP Attending Unavailable OHUSER, MANDEEP Primary Care Unavailable ANGEL CASTRO Referring [...] (2 sources) amLODIPine Drug Allergy 0 Intolerance [facility] Amoxicillin / Clavulanate (2 sources) Amoxicillin / Clavulanate Drug Allergy 3 GI Upset [facility] HMG-CoA Reductase Inhibitors (statins) (2 sources) atorvastatin Drug Allergy 0 Myalgia [facility] Opioid Agonists (2 sources) Codeine Drug Allergy 3 Mental Status Change [facility] Work Phone: Sulfonamides (antibiotic) (2 sources) Sulfonamides (Antibiotic) Drug Allergy 0 Intolerance [facility] (20 sources) amLODIPine; Translations: [AMLODIPINE] Drug Allergy 0 Other: See Comments, Intolerance [facility] (2 sources) Amoxicillin / Clavulanate Drug Allergy [facility] Work Phone: (20 sources) Codeine; Translations: [CODEINE] Drug Allergy 3 Dizziness, Mental Status Change [facility] Work Phone: (2 sources) Sulfonamides (Antibiotic) Allergy to drug (finding) Headache [facility] Work Phone: (20 sources) Amoxicillin / Clavulanate; Translations: [AMOXICILLIN-POT CLAVULANATE] Drug Allergy 3 GI Upset [facility] (20 sources) Angiotensin-conve rting enzyme inhibitor agent; Translations: [EMILIO INHIBITORS] Drug Allergy 0 Other: See Comments [facility] (20 sources) atorvastatin; Translations: [ATORVASTATIN] Drug Allergy 0 Myalgia [facility] (20 sources) beta-Blocking agent; Translations: [BETA-BLOCKERS (BETA-ADRENERGIC BLOCKING AGTS)] Drug Allergy 0 Other: See Comments [facility] (20 sources) Sulfonamides (Antibiotic); Translations: [SULFA (SULFONAMIDE ANTIBIOTICS)] Drug Allergy 0 Other: See Comments, Intolerance [facility] (20 sources) Angiotensin-conve rting enzyme inhibitor agent Drug Allergy 0 Other: See Comments, Intolerance [facility] (20 sources) beta-Blocking agent Drug Allergy 0 Other: See Comments, Intolerance [facility] (20 sources) sacubitril / valsartan; Translations: [SACUBITRIL-VALSA RTAN] Drug Allergy 4 Intolerance [facility] (1 source) Amoxicillin Drug Allergy 4 [facility] Repository (1 source) Clavulanate Drug Allergy 4 [facility] Repository (1 source) Amoxicillin Drug Allergy 5 PT UNSURE OF REACTION [facility] (1 source) Clavulanate Drug Allergy 5 PT UNSURE OF REACTION [facility] Medications Current Medications Medication Drug Class(es) [...] as needed. Take 2 tablets by mo [facility] every 8 hours as needed [...] on above: Take 1 capsule by mo [facility] three times daily as needed [...] 1 tablet by jc th once daily. [place]-3 Fatty Acids-Vitamin E (FISH OIL) 1,000 mg cap (1 source) End: 04-30-20 take 1 capsule by mouth once daily [place]-3 Fatty Acids-Vitamin E (FISH OIL) 1,000 mg cap Take 1 capsule by mouth once daily. 0 04/30/2020 Discontinued Comment on above: Take 1 capsule by mo [facility] once daily. omeprazole 20 mg [...] End: 07-13-2023 OREGANO OIL ORAL [facility]. 0 07/13/2023 Discontinued OREGANO [...] mg tablet Indications: Coronary artery disease involving [place] coronary artery of [place] heart with other form of angina pectoris [...] Coronary atherosclerosis; Translations: [Atherosclerotic heart disease of [place] coronary artery with other forms of angina [...] 08-02-2022 Chronic Other aftercare (1 source) Other [facility] (current) drug therapy; Translations: [Medication management] Onset: [...] Auto (Unsp spec) [#/Vol] 2.58 10*3/uL 0.83-4.51 [facility] Absolute neutrophil countOrd ered By: Jose Goldberg on 11-13-2024 Neutrophils (Bld) [#/Vol] 5.9 10*3/uL 2.0-7.7 [facility] Anion gap in Serum or Plasma Ordered By: Jose Goldberg on 11-13-2024 Anion gap [Moles/Vol] 12 mmol/L 5-15 [facility] Automated lymphocyte count a s percentage of total leukocytesOrdered By: Jose Goldberg on 11-13-2024 Lymphocytes/100 WBC Auto (Unsp spec) 26.8 % 19-41 [facility] BUN/creatinine ratioOrdered By: Jose Goldberg on 11-13-2024 Urea nitrogen/Creatinine [Mass ratio] 22.8 mg/mg High 10-20 [facility] Basophil percentageOrdered B y: Jose Goldberg on 11-13-2024 Basophils/100 WBC (Bld) 1.0 % 0-1 [facility] Bilirubin Test strip Ql (U)O rdered By: Jose Goldberg on 11-13-2024 Bilirubin Ql (U) Negative Negative [facility] CBC + diff autoon 11-13-2024 CBC W Auto Differential panel (Bld) [facility] Carbon dioxide, total [Moles /volume] in Central venous bloodOrdered By: Jose Goldberg on 11-13-2024 CO2 [Moles/Vol] 20.2 mmol/L Low 21.0-32.0 [facility] Chloride assayOrdered By: Skyla Goldberg on 11-13-2024 Chloride [Moles/Vol] 107 mmol/L 98-108 [facility] Eosinophil percentageOrdered By: Jose Goldberg on 11-13-2024 Eosinophils/100 WBC (Bld) 1.3 % 0-5 [facility] Erythrocyte distribution wid th ratioOrdered By: Jose Goldberg on 11-13-2024 Erythrocyte distribution width (RBC) [Ratio] 13.8 % 11.6-14.6 [facility] Erythrocyte distribution wid th standard deviationOrdered By: Jose Goldberg on 11-13-2024 Erythrocyte distribution width (RBC) [Ratio] 45.6 fl High 35.1-43.9 [facility] Glomerular filtration rate ( GFR) estimation/1.73 sq m using serum, plasma, or whole bOrdered By: Jose Goldberg on 11-13-2024 GFR/1.73 sq M.predicted among non-blacks MDRD (S/P/Bld) [Vol rate/Area] 61 mL/min/{1.73_m2} >60 [facility] Comment on above: mL/min/1.73m2 CKD-EP I Creatinine Equation (2020) Hematocrit Auto (Bld) [Volum e fraction]Ordered By: Jose Goldberg on 11-13-2024 Hematocrit (Bld) [Volume fraction] 37.5 % 37-47 [facility] Hemoglobin measurementOrdere d By: Jose Goldberg on 11-13-2024 Hemoglobin (Bld) [Mass/Vol] 12.1 g/dL 12.0-15.0 [facility] Immature granulocytes/100 WB C Auto (Bld)Ordered By: Jose Goldberg on 11-13-2024 Immature granulocytes/100 WBC (Bld) 0.700 % 0.0-0.9 [facility] Comment on above: IG% - Immature Granu locytes (promyelocytes, myelocytes and metamyelocytes) > 1% indicates that a LEFT SHIFT is Present. Ketones Test strip Ql (U)Ord ered By: Jose Goldberg on 11-13-2024 Ketones Ql (U) Negative Negative [facility] MCV (mean corpuscular volume ) determinationOrdered By: Jose Goldberg on 11-13-2024 MCV (RBC) [Entitic vol] 90.1 fL 81-99 [facility] Mean corpuscular hemoglobin (MCH) determinationOrdered By: Jose Goldberg on 11-13-2024 MCH (RBC) [Entitic mass] 29.1 pg 27.0-32.0 [facility] Mean corpuscular hemoglobin concentration (MCHC) determinationOrdered By: Jose Goldberg on 11-13-2024 MCHC (RBC) [Mass/Vol] 32.3 g/dL 32-36 [facility] Mean platelet volume determi nationOrdered By: Jose Goldberg on 11-13-2024 Platelet mean volume (Bld) [Entitic vol] 9.7 fL 6.2-12.0 [facility] Microscopic analysis of urin e for red blood cells (RBC)Ordered By: Jose Goldberg on 11-13-2024 Microscopic analysis of urine for red blood cells (RBC) 0 SEEN /hpf 0-5 [facility] Monocyte percentageOrdered B y: Jose Goldberg on 11-13-2024 Monocytes/100 WBC (Bld) 8.8 % 0-10 [facility] Mucus LM Ql (Urine sed)Order ed By: Jose Goldberg on 11-13-2024 Mucus Ql (Urine sed) 0 SEEN /hpf [facility] Neutrophil percentageOrdered By: Jose Goldberg on 11-13-2024 Neutrophils/100 WBC (Bld) 61.4 % 47-70 [facility] Nitrite Test strip Ql (U)Ord ered By: Jose Goldberg on 11-13-2024 Nitrite Ql (U) Negative Negative [facility] Nucleated red blood cell per centageOrdered By: Jose Goldberg on 11-13-2024 Nucleated RBC/100 WBC (Bld) [Ratio] 0 % 0-5 [facility] Platelet countOrdered By: Skyla Goldberg on 11-13-2024 Platelets (Bld) [#/Vol] 295 10*3/uL 150-450 [facility] Potassium measurement (mass/ volume)Ordered By: Jose Goldberg on 11-13-2024 Potassium (Unsp spec) [Mass/Vol] 4.3 mmol/L 3.3-5.1 [facility] Comment on above: Hemolysis present, R esults could be affected. Protein Test strip Ql (U)Ord ered By: Jose Goldberg on 11-13-2024 Protein Ql (U) 15 mg/dl High Negative [facility] RBC Auto (Bld) [#/Vol]Ordere d By: Jose Goldberg on 11-13-2024 RBC (Bld) [#/Vol] 4.16 10*6/uL Low 4.2-5.4 [facility] Serum creatinine measurement (mass/volume)Ordered By: Jose Goldberg on 11-13-2024 Creatinine [Mass/Vol] 0.96 mg/dL 0.70-1.20 [facility] Serum glucose measurement (m ass/volume)Ordered By: Jose Goldberg on 11-13-2024 Glucose [Mass/Vol] 122 mg/dL High 70-99 [facility] Serum or plasma calcium franklin urement (mass/volume)Ordered By: Jose Goldberg on 11-13-2024 Calcium [Mass/Vol] 9.3 mg/dL 7.6-11.0 [facility] Serum or plasma urea nitroge n measurement (mass/volume)Ordered By: Jose Goldberg on 11-13-2024 Urea nitrogen [Mass/Vol] 22 mg/dL High 4-19 [facility] Sodium levelOrdered By: Jermaine Goldberg on 11-13-2024 Sodium [Moles/Vol] 139 mmol/L 133-145 [facility] Squamous epithelial cells de tection in urine sediment by light microscopyOrdered By: Jose Goldberg on 11-13-2024 Epithelial cells.squamous LM Ql (Urine sed) 5-10 SEEN /hpf 5-10 [facility] Urine clarityOrdered By: Inna Goldberg on 11-13-2024 Clarity (U) Clear Clear [facility] Urine color determinationOrd ered By: Jose Goldberg on 11-13-2024 Color (U) Yellow Yellow [facility] Urine glucose detectionOrder ed By: Jose Goldberg on 11-13-2024 Glucose Ql (U) Normal mg/dl Normal [facility] Urine leukocyte esterase det ection by dipstickOrdered By: Jose Goldberg on 11-13-2024 Leukocyte esterase Test strip Ql (U) Negative Negative [facility] Urine pHOrdered By: Jose Goldberg on 11-13-2024 pH (U) 6.5 [pH] 5.0 - 8.0 [facility] Urine sediment bacteria coun t by microscopy (number/high power field)Ordered By: Jose Goldberg on 11-13-2024 Bacteria LM.HPF (Urine sed) [#/Area] RARE /hpf None Seen [facility] Urine specific gravity measu rementOrdered By: Jose Goldberg on 11-13-2024 Specific gravity (U) [Rel density] 1.010 1.002-1.030 [facility] Urine urobilinogen measureme ntOrdered By: Jose Goldberg on 11-13-2024 Urobilinogen Ql (U) Normal mg/dl Normal [facility] White blood cell (WBC) count Ordered By: Jose Goldberg on 11-13-2024 WBC (Bld) [#/Vol] 9.6 10*3/uL 4.4-11.0 [facility] White blood cell countOrdere d By: Jose Goldberg on 11-13-2024 White blood cell count 0-5 SEEN /hpf 0-5 [facility] ECG COMPLETEon 11-04-2024 Atrial Rate 63 BPM [facility] Calculated P [place] 16 degrees [facility] Calculated R [place] -81 degrees [facility] Calculated T [place] 24 degrees [facility] P-R Interval 118 ms [facility] QRS Duration 118 ms [facility] QT Interval 452 ms [facility] QTC Calculation (Bazett) 462 ms [facility] Ventricular Rate 63 BPM [facility] ATRIAL-SENSED VENTRICULAR-PACED RHYTHM WITH OCCASIONAL SINUS COMPLEXES ABNORMAL ECG Confirmed by GREGORIA MERCADO MD ([id number]) on 11/04/2024 1:01:22 PM [facility] NAME : SANDRA SCHMITZ PID : [id number] : 1945 Gender : Female Race : ORD : [id number] Procedure Date : Nov 03 2024 14:14:06 Edit Date : Nov 04 2024 13:01:29 Diagnosis: ATRIAL-SENSED VENTRICULAR-PACED RHYTHM WITH OCCASIONAL SINUS COMPLEXES ABNORMAL ECG Confirmed by GREGORIA MERCADO MD ([id number]) on 11/04/2024 1:01:22 PM Test Reason : I42.8 Nonischemic cardiomyopathy (HCC) [facility] Overread By : GREGORIA MERCADO MD Edited By : GREGORIA MERCADO MD Referred By : DEANN Acquired by : LISANDRO, [facility] CNOVon 11-03-2024 CNOV Office Visit (CARDFV ) ----- SANDRA SCHMITZ ([id number]) 1945 F Date Time Provider Department 11/03/24 3:45 PM HOLTER/EVENT MONITOR EDENILSON WALLACE During your visit today, we recorded the following information about you: Dilcia Hooks MA 11/03/2024 3:58 PM Signed EVENT MONITOR DISPOSABLE PATCH INSTRUCTIONS Patient Name: Sandra Schmitz [facility] Number: [id number] Skin prepped and cleansed with alcohol Patch secured to prepped area Monitor Activated Serial #: [id number] Patient Instructed: Prescribed order timeframe Bathing guidelines Usage of event button and diary documentation Return of monitor at the end of prescribed order Call with problems [phone] or [phone]. [phone] Patient expresses a good understanding of instructions Dilcia Hooks MA Allergies As of Date: 11/03/2024 Noted [...] Assessed Primary Visit Diagnosis:Cardiac resynchronization therapy defibrillator (ENERGY AUDITOR-D) in place [Z95.810] Prescriptions as of 11/03/2024 [...] right [M19.071] 08/02/2022 Coronary artery disease involving united keetoowah lopez*08/02/2022 Vitamin D deficiency [E55.9] 08/02/2022 Somatic dysfunction of head region [M99.00] 08/10/2022 Chronic neck pain [M54.2, G89.29] 08/24/2022 Chronic bronchitis (HCC) [J42] 09/11/2022 SVT (supraventricular tachycardia) (HCC) [I47.1*09/11/2022 Combined systolic and diastoli (more content not included)... Normal [facility] CNOV Office Visit (CACHFV ) ----- SANDRA SCHMITZ ([id number]) 1945 F Date Time Provider Department 11/03/24 [...] and weight daily. Please notify us via Sookasa if your Systolic BP (top number) < [...] heart kidney injury risk Please send a YouGoDo message or call with any questions or concerns: Outpatient Number: [phone] Thank you, Pili Wells MD Advanced Heart Failure and Transplant [place] [address] For [facility] patients , contact: [facility]- Section Of Heart Failure and Cardiac Transplant Medicine [facility] - Desk [id number] Nurse Line and for Refills- call [phone] [facility] Scheduling Line- to make appointments- call [phone] Pili Wells MD 11/09/2024 5:30 PM Signed [facility] SECTION OF HEART FAILURE and CARDIAC TRANSPLANT MEDICINE [facility] OUTPATIENT VISIT DATE November 03, 2024 OUTPATIENT VISIT TYPE Established PRIMARY CARE PHYSICIAN: Mandeep Houser [address] [place] [address] CHIEF COMPLAINT: Follow Up HISTORY OF PRESENT ILLNESS: Sandra Schmitz is a 78 year old female with a medical history that includes non-ischemic CM, HTN, Hypothyroidism, LBBB s/p ENERGY AUDITOR-D who is referred to me for heart failure management. Sandra Schmitz was initially diagnosed with non-ischemic CM ~ 4 yrs ago and was doing well on losartan and metoprolol. She had progressive sxs of dyspnea on exertion, therefore she was started on entresto and farxiga and her sxs persisted and she was admitted locally in [place] and then transferred to for ENERGY AUDITOR consideration. Interval History: Sandra Schmitz was last [...] LVEF 40%, LVEdd 4.8cm. LBBB: chronic. S/p ENERGY AUDITOR 07/2023 Non-obstructive CAD: stable, ischemic testing recently [...] CHF (c (more content not included)... Normal [facility] CNOV Office Visit (CARDFV ) ----- SANDRA SCHMITZ ([id number]) 1945 F Date Time Provider Department 11/03/24 3:30 PM M[facility]EN[facility] During your visit today, we recorded the following information about you: Pulse Blood pressure Weight Height 70/minute 119/71 86.2 kg 1.626 m Morenita Hill APRN.MEDICAL DEVICE SALES 11/03/2024 3:59 PM Signed [facility] Department of Cardiovascular Medicine SECTION OF ELECTROPHYSIOLOGY AND PACING OUTPATIENT VISIT DATE November 03, 2024 OUTPATIENT VISIT TYPE ESTABLISHED PRIMARY CARE PHYSICIAN: Mandeep Houser [address] [place] [address] CHIEF COMPLAINT: Follow Up HISTORY OF PRESENT ILLNESS: Ms. Schmitz is a 79 year old female, patient of Dr. Wellington and Dr. Wells who presents today for a cardiovascular medicine follow-up visit regarding ENERGY AUDITOR-D which was placed in July of last year during which time she had been admitted to [facility] for acute HFrEF and inability to initiate GDMT. She was deemed excellent candidate for ENERGY AUDITOR therapy and thus had MDT ENERGY AUDITOR-D inserted. Since then, Ms. Schmitz reports that overall she has been feeling well. She has noted over the last several months that when shh is anxious or rushing, she may feel her heart racing with some palpitations. When she rests, symptoms resolve. Overall, since device insertion, she has significantly improved functional capacity. She is compliant with all medications. PMH: Chronic NICM s/p MDT ENERGY AUDITOR-D, dyslipidemia, hypothyroidism, Factor V Leiden, IBS, h/o gout PAST MEDICAL HISTORY Diagnosis Date Acute acalculous cholecystitis 05/30/2020 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 09/22/2020 Acute on chronic systolic CHF (congestive heart failure) ([facility]) 05/03/2020 Aspiration pneumonia ([facility]) 05/30/2020 Chest pain 05/03/2020 Chest pressure 01/23/2013 Chronic diastolic congestive heart failure ([facility]) 02/14/2021 Clostridium difficile diarrhea 09/28/2020 Complete uterovaginal prolapse Cystocele, midline Essential hypertension 06/14/2020 Homozygous Factor V Leiden mutation ([facility]) 05/03/2020 Hypothyroidism IBS (irritable bowel syndrome) 01/23/2013 [...] once daily (more content not included)... Normal [facility] ECG COMPLETEon 11-03-2024 ECG COMPLETE Ventricular Rate : 5 6 BPM Atrial Rate : 56 BPM P-R Interval : 122 ms QRS Duration : 124 ms Q-T Interval : 478 ms QTC Calculation(Bazett) : 461 ms Calculated P [place] : 36 degrees Calculated R [place] : -50 degrees Calculated T [place] : 89 degrees ATRIAL-SENSED VENTRICULAR-PACED RHYTHM ABNORMAL ECG Confirmed by GREGORIA MERCADO MD ([id number]) on 11/04/2024 1:01:15 PM NAME : SANDRA SCHMITZ PID : [id number] : 1945 Gender : Female Race : ORD : [id number] Procedure Date : Nov 03 2024 15:09:38 Edit Date : Nov 04 2024 13:01:17 Diagnosis: ATRIAL-SENSED VENTRICULAR-PACED RHYTHM ABNORMAL ECG Confirmed by GREGORIA MERCADO MD ([id number]) on 11/04/2024 1:01:15 PM Test Reason : Z95.810 Cardiac resynchronization therapy defibrillator (ENERGY AUDITOR-D) in place Location : 225 : [facility] Overread By : GREGORIA MERCADO MD Edited By : GREGORIA MERCADO MD Referred By : JERED Acquired by : Terrie GRANT [facility] ECG COMPLETE Ventricular Rate : 6 3 BPM Atrial Rate : 63 BPM P-R Interval : 118 ms QRS Duration : 118 ms Q-T Interval : 452 ms QTC Calculation(Bazett) : 462 ms Calculated P [place] : 16 degrees Calculated R [place] : -81 degrees Calculated T [place] : 24 degrees ATRIAL-SENSED VENTRICULAR-PACED RHYTHM WITH OCCASIONAL SINUS COMPLEXES ABNORMAL ECG Confirmed by GREGORIA MERCADO MD ([id number]) on 11/04/2024 1:01:22 PM NAME : SANDRA SCHMITZ PID : [id number] : 1945 Gender : Female Race : ORD : [id number] Procedure Date : Nov 03 2024 14:14:06 [...] : DEANN Acquired by : Terrie MCMAHON [facility] CNOVon 10-21-2024 CNOV Office Visit (FAMPWS ) ----- SANDRA SCHMITZ ([id number]) 1945 F Date Time Provider Department 10/21/24 [...] on chronic systolic CHF (congestive heart failure) ([facility]) 05/03/2020 Aspiration pneumonia ([facility]) 05/30/2020 Chest pain 05/03/2020 Chest pressure 01/23/2013 Chronic diastolic congestive heart failure ([facility]) 02/14/2021 Clostridium difficile diarrhea 09/28/2020 Complete uterovaginal prolapse Cystocele, midline Essential hypertension 06/14/2020 Homozygous Factor V Leiden mutation ([facility]) 05/03/2020 Hypothyroidism IBS (irritable bowel syndrome) 01/23/2013 [...] without drainage, (more content not included)... Normal [facility] CNOVon 09-30-2024 CNOV Office Visit (FAMPWS ) ----- SANDRA SCHMITZ ([id number]) 1945 F Date Time Provider Department 09/30/24 2:00 PM MANDEEP HOUSER FAMPWS During your visit today, we recorded the following information about you: Mandeep Houser, 09/30/2024 4:51 PM Signed CC: Sandra [...] on chronic systolic CHF (congestive heart failure) ([facility]) 05/03/2020 Aspiration pneumonia ([facility]) 05/30/2020 Chest pain 05/03/2020 Chest pressure 01/23/2013 Chronic diastolic congestive heart failure ([facility]) 02/14/2021 Clostridium difficile diarrhea 09/28/2020 Complete uterovaginal prolapse Cystocele, midline Essential hypertension 06/14/2020 Homozygous Factor V Leiden mutation ([facility]) 05/03/2020 Hypothyroidism IBS (irritable bowel syndrome) 01/23/2013 [...] Left poste (more content not included)... Normal [facility] CNPNon 08-27-2024 CNPN Telephone ([facility]) ----- SANDRA SCHMITZ ([id number]) 1945 F Date Time Provider Department 08/27/24 DILCIA PEARSON [facility] During your visit today, we recorded the following information about you: Radha Buchanan 08/27/2024 10:21 AM Signed ----- Message from Dilcia Bonilla MD sent at 08/23/2024 9:30 AM EDT ----- I saw her in '24 Please reschedule with Mercedes + device Radha Buchanan 08/27/2024 10:22 AM Signed Call to patient to r/s. Patient is [facility] out [facility] and would prefer all appointments same day [...] right [M19.071] 08/02/2022 Coronary artery disease involving united keetoowah lopez*08/02/2022 Vitamin D deficiency [E55.9] 08/02/2022 Somatic [...] (HCC) [J96.01]07/13/19 (more content not included)... Normal [facility] CNOVon 08-25-2024 CNOV Office Visit (FAMPWS ) ----- SANDRA SCHMITZ ([id number]) 1945 F Date Time Provider Department 08/25/24 [...] on chronic systolic CHF (congestive heart failure) ([facility]) 05/03/2020 Aspiration pneumonia ([facility]) 05/30/2020 Chest pain 05/03/2020 Chest pressure 01/23/2013 Chronic diastolic congestive heart failure ([facility]) 02/14/2021 Clostridium difficile diarrhea 09/28/2020 Complete uterovaginal prolapse Cystocele, midline Essential hypertension 06/14/2020 Homozygous Factor V Leiden mutation ([facility]) 05/03/2020 Hypothyroidism IBS (irritable bowel syndrome) 01/23/2013 [...] cervical L (more content not included)... Normal [facility] ECHOon 08-15-2024 Echocardiography Echocardiography Rep ort: Transthoracic Echo [facility] Date of service: 08/15/2024 12:49:59 PM ENGINEER Ordering physician: ANGEL CASTRO Indication: NICM Technologist: Teagan Murillo [facility] Interpreting physician: Gilmer Carpio MD PATIENT: [...] * * Final * * * [facility] : [id number] Normal [facility] CNOVon 08-04-2024 CNOV Office Visit (FAMPWS ) ----- SANDRA SCHMITZ ([id number]) 1945 F Date Time Provider Department 08/04/24 2:00 PM [facility] your visit today, we recorded the [...] L1-2NRrSBr left (more content not included)... Normal [facility] CNOVon 07-21-2024 CNOV Office Visit (FAMPWS ) ----- SANDRA SCHMITZ ([id number]) 1945 F Date Time Provider Department 07/21/24 [...] October Would like to have her medical internet marketing intern more local for better accessibility She had labs and a chest xray Currently Cough, chest congestion, symptoms are improved. Just still with some fatigue but seems to be getting better. No further cough, no sputum production, no fevers or chills. Heart failure. Has an echo to get scheduled and completed for the internet marketing intern, taking her medications as prescribed. PAST MEDICAL HISTORY Diagnosis Date Acute acalculous cholecystitis 05/30/2020 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 09/22/2020 Acute on chronic systolic CHF (congestive heart failure) ([facility]) 05/03/2020 Aspiration pneumonia ([facility]) 05/30/2020 Chest pain 05/03/2020 Chest pressure 01/23/2013 [...] tobacco: Never (more content not included)... Normal [facility] 25(OH)D3 SerPl-mCncon 2024 25-hydroxyvitamin D3 [Mass/Vol] 26.0 ng/mL Low 31.0-80.0 [facility] Comment on above: Order Comment: Speci men Type: BLOOD SPECIMENOrdering Facility: [facility] Address: [address] [place] [address] Performed By: #### 1 989-3 ####[facility] LABIA [id number] [address] [place] Bacteria Ur Culton Bacteria identified Cx Nom (U) ORGANISM ID: 1 50,000-<100,000 CFU/ml Normal urogenital kash Normal [facility] Comment on above: Performed By: #### 6 30-4 ####[facility] LABCLIA [id number] [address] [place] CBC W Auto Differential pane l (Bld)on 07-08-2024 Basophils (Bld) [#/Vol] 0.12 10*3/uL High [facility] Basophils/100 WBC (Bld) 1.4 % [facility] Differential cell count method Nom (Bld) Auto [facility] Eosinophils (Bld) [#/Vol] 0.16 10*3/uL [facility] Eosinophils/100 WBC (Bld) 1.8 % [facility] Erythrocyte distribution width (RBC) [Ratio] 14.5 % 11.5 - 15.0 % [facility] Hematocrit (Bld) [Volume fraction] 43.4 % 36.0 - 46.0 % [facility] Hemoglobin (Bld) [Mass/Vol] 13.6 g/dL 11.5 - 15.5 g/dL [facility] Immature granulocytes (Bld) [#/Vol] 0.08 10*3/uL [facility] Immature granulocytes/100 WBC (Bld) 0.9 % [facility] Interpretation and review of laboratory results Abnormal [facility] Lymphocytes (Bld) [#/Vol] 3.59 10*3/uL [facility] Lymphocytes/100 WBC (Bld) 40.5 % [facility] MCH (RBC) [Entitic mass] 28.7 pg 26.0 - 34.0 pg [facility] MCHC (RBC) [Mass/Vol] 31.3 g/dL 30.5 - 36.0 g/dL [facility] MCV (RBC) [Entitic vol] 91.6 fL 80.0 - 100.0 fL [facility] Monocytes (Bld) [#/Vol] 0.81 10*3/uL NINF [facility] Monocytes/100 WBC (Bld) 9.1 % [facility] Neutrophils (Bld) [#/Vol] 4.11 10*3/uL [facility] Neutrophils/100 WBC (Bld) 46.3 % [facility] Nucleated RBC (Bld) [#/Vol] NINF [facility] Nucleated RBC/100 WBC (Bld) [Ratio] 0 % /100 WBC [facility] Platelet mean volume (Bld) [Entitic vol] 10.7 fL 9.0 - 12.7 fL [facility] Platelets (Bld) [#/Vol] 430 10*3/uL High [facility] RBC (Bld) [#/Vol] 4.74 10*6/uL 3.90 - 5.2 0 m/uL [facility] WBC (Bld) [#/Vol] 8.87 10*3/uL [facility] Basophils (Bld) [#/Vol] 0.12 10*3/uL High <0.11 [facility] Comment on above: Order Comment: Speci men Type: BLOOD SPECIMENOrdering Facility: [facility] Address: [address] [place] [address] Performed By: #### 5 7021-8 ####[facility] LABORATORYCLIA [id number] [address] STATES OF [facility] Basophils/100 WBC (Bld) 1.4 % Normal [facility] Comment on above: Order Comment: Speci men Type: BLOOD SPECIMENOrdering Facility: [facility] Address: [address] [place] [address] Performed By: #### 5 7021-8 ####[facility] LABORATORYCLIA [id number] [address] Differential cell count method Nom (Bld) Auto Normal [facility] Comment on above: Order Comment: Speci men Type: BLOOD SPECIMENOrdering Facility: [facility] Address: [address] [place] [address] Performed By: #### 5 7021-8 ####[facility] LABORATORYCLIA [id number] [address] [place] Eosinophils (Bld) [#/Vol] 0.16 10*3/uL Normal <0.46 [facility] Comment on above: Order Comment: Speci men Type: BLOOD SPECIMENOrdering Facility: [facility] Address: [address] [place] [address] Performed By: #### 5 7021-8 ####[facility] LABORATORYCLIA [id number] [address] STATES [facility] Eosinophils/100 WBC (Bld) 1.8 % Normal [facility] Comment on above: Order Comment: Speci men Type: BLOOD SPECIMENOrdering Facility: [facility] Address: [address] [place] [address] Performed By: #### 5 7021-8 ####[facility] LABORATORYCLIA [id number] [address] Erythrocyte distribution width (RBC) [Ratio] 14.5 % Normal 11.5-15.0 [facility] Comment on above: Order Comment: Speci men Type: BLOOD SPECIMENOrdering Facility: [facility] Address: [address] [place] [address] Performed By: #### 5 7021-8 ####[facility] LABORATORYCLIA [id number] [address] Hematocrit (Bld) [Volume fraction] 43.4 % Normal 36.0-46.0 [facility] Comment on above: Order Comment: Speci men Type: BLOOD SPECIMENOrdering Facility: [facility] Address: [address] [place] [address] Performed By: #### 5 7021-8 ####[facility]ORATORYCLIA [id number] [place] [id number] [place] Hemoglobin (Bld) [Mass/Vol] 13.6 g/dL Normal 11.5-15.5 [facility] Comment on above: Order Comment: Speci men Type: BLOOD SPECIMENOrdering Facility: [facility] Address: [address] [place] [address] Performed By: #### 5 7021-8 ####[facility]ORATORYCLIA [id number] [place] [id number] [place] Immature granulocytes (Bld) [#/Vol] 0.08 10*3/uL Normal <0.10 [facility] Comment on above: Order Comment: Speci men Type: BLOOD SPECIMENOrdering Facility: [facility] Address: [address] [place] [address] Performed By: #### 5 7021-8 ####[facility] LABORATORYCLIA [id number] [place] [address] [place] Immature granulocytes/100 WBC (Bld) 0.9 % Normal [facility] Comment on above: Order Comment: Speci men Type: BLOOD SPECIMENOrdering Facility: [facility] Address: [address] [place] [address] Performed By: #### 5 7021-8 ####[facility]ORATORYCLIA [id number] [place] [id number] [place] Lymphocytes (Bld) [#/Vol] 3.59 10*3/uL Normal 1.00-4.00 [facility] Comment on above: Order Comment: Speci men Type: BLOOD SPECIMENOrdering Facility: [facility] Address: [address] [place] [address] Performed By: #### 5 7021-8 ####[facility]ORATORYCLIA [id number] [place] [id number] [place] Lymphocytes/100 WBC (Bld) 40.5 % Normal [facility] Comment on above: Order Comment: Speci men Type: BLOOD SPECIMENOrdering Facility: [facility] Address: [address] [place] [address] Performed By: #### 5 7021-8 ####Stream5[facility] LABORATORYCLIA [id number] [address] MCH (RBC) [Entitic mass] 28.7 pg Normal 26.0-34.0 [facility] Comment on above: Order Comment: Speci men Type: BLOOD SPECIMENOrdering Facility: [facility] Address: [address] [place] [address] Performed By: #### 5 7021-8 ####[facility] LABORATORYCLIA [id number] [address] [place] MCHC (RBC) [Mass/Vol] 31.3 g/dL Normal 30.5-36.0 [facility] Comment on above: Order Comment: Speci men Type: BLOOD SPECIMENOrdering Facility: [facility] Address: [address] [place] [address] Performed By: #### 5 7021-8 ####[facility] LABORATORYCLIA [id number] [address] [place] MCV (RBC) [Entitic vol] 91.6 fL Normal 80.0-100.0 [facility] Comment on above: Order Comment: Speci men Type: BLOOD SPECIMENOrdering Facility: [facility] Address: [address] [place] [address] Performed By: #### 5 7021-8 ####[facility] LABORATORYCLIA [id number] [address] [place] Monocytes (Bld) [#/Vol] 0.81 10*3/uL Normal <0.87 [facility] Comment on above: Order Comment: Speci men Type: BLOOD SPECIMENOrdering Facility: [facility] Address: [address] [place] [address] Performed By: #### 5 7021-8 ####[facility] LABORATORYCLIA [id number] [address] [place] Monocytes/100 WBC (Bld) 9.1 % Normal [facility] Comment on above: Order Comment: Speci men Type: BLOOD SPECIMENOrdering Facility: [facility] Address: [address] [place] [address] Performed By: #### 5 7021-8 ####[facility] LABORATORYCLIA [id number] [place] [address] [place] Neutrophils (Bld) [#/Vol] 4.11 10*3/uL Normal 1.45-7.50 [facility] Comment on above: Order Comment: Speci men Type: BLOOD SPECIMENOrdering Facility: [facility] Address: [address] [place] [address] Performed By: #### 5 7021-8 ####[facility] LABORATORYCLIA [id number] [place] [address] [place] Neutrophils/100 WBC (Bld) 46.3 % Normal [facility] Comment on above: Order Comment: Speci men Type: BLOOD SPECIMENOrdering Facility: [facility] Address: [address] [place] [address] Performed By: #### 5 7021-8 ####[facility] LABORATORYCLIA [id number] [place] [address] [place] Nucleated RBC (Bld) [#/Vol] 10*3/uL Normal <0.01 [facility] Comment on above: Order Comment: Speci men Type: BLOOD SPECIMENOrdering Facility: [facility] Address: [address] [place] [address] Performed By: #### 5 7021-8 ####[facility] LABORATORYCLIA [id number] [place] [address] [place] Nucleated RBC/100 WBC (Bld) [Ratio] 0.0 /100 WBC Normal [facility] Comment on above: Order Comment: Speci men Type: BLOOD SPECIMENOrdering Facility: [facility] Address: [address] [place] [address] Performed By: #### 5 7021-8 ####[facility] LABORATORYCLIA [id number] [address] [place] Platelet mean volume (Bld) [Entitic vol] 10.7 fL Normal 9.0-12.7 [facility] Comment on above: Order Comment: Speci men Type: BLOOD SPECIMENOrdering Facility: [facility] Address: [address] [place] [address] Performed By: #### 5 7021-8 ####[facility] LABORATORYCLIA [id number] [place] [address] [place] Platelets (Bld) [#/Vol] 430 10*3/uL High 150-400 [facility] Comment on above: Order Comment: Speci men Type: BLOOD SPECIMENOrdering Facility: [facility] Address: [address] [place] [address] Performed By: #### 5 7021-8 ####[facility] LABORATORYCLIA [id number] [place] [address] [place] RBC (Bld) [#/Vol] 4.74 10*6/uL Normal 3.90-5.20 [facility] Comment on above: Order Comment: Speci men Type: BLOOD SPECIMENOrdering Facility: [facility] Address: [address] [place] [address] Performed By: #### 5 7021-8 ####[facility] LABORATORYCLIA [id number] [place] [id number] [place] WBC (Bld) [#/Vol] 8.87 10*3/uL Normal 3.70-11.00 [facility] Comment on above: Order Comment: Speci men Type: BLOOD SPECIMENOrdering Facility: [facility] Address: [address] [place] [address] Performed By: #### 5 7021-8 ####[facility] LABORATORYCLIA [id number] [address] [place] CNOVon 07-08-2024 CNOV Office Visit (FAMPWS ) ----- SANDRA SCHMITZ ([id number]) 1945 F Date Time Provider Department 07/08/24 2:00 PM MANDEEP HOUSER During your visit today, we recorded the following information about you: Pulse Blood pressure Weight 66/minute 110/70 83.5 kg Mandeep Houser DO 07/08/2024 2:50 PM 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 Normal [facility] Comprehensive metabolic 2000 panelon 07-08-2024 Albumin [Mass/Vol] 4.3 g/dL Normal 3.9-4.9 [facility] Comment on above: Order Comment: Speci men Type: BLOOD SPECIMENOrdering Facility: [facility] Address: [address] [place] [address] Performed By: #### 2 132-9, 46833-0 ####Stream5[facility] LABORATORYCLIA [id number] [address] STATES OF [facility] ALP [Catalytic activity/Vol] 82 U/L Normal 34-123 [facility] Comment on above: Order Comment: Speci men Type: BLOOD SPECIMENOrdering Facility: [facility] Address: [address] [place] [address] Performed By: #### 2 132-9, 68502-3 ####[facility] LABORATORYCLIA [id number] [address] [place] ALT With P-5'-P [Catalytic activity/Vol] 11 U/L Normal 7-38 [facility] Comment on above: Order Comment: Speci men Type: BLOOD SPECIMENOrdering Facility: [facility] Address: [address] [place] [address] Performed By: #### 2 132-9, 72070-1 ####[facility] LABORATORYCLIA [id number] [place] [address] [place] Anion gap [Moles/Vol] 12 mmol/L Normal 8-15 [facility] Comment on above: Order Comment: Speci men Type: BLOOD SPECIMENOrdering Facility: [facility] Address: [address] [place] [address] Performed By: #### 2 132-9, 31991-7 ####[facility] LABORATORYCLIA [id number] [place] [address] [place] AST With P-5'-P [Catalytic activity/Vol] 16 U/L Normal 13-35 [facility] Comment on above: Order Comment: Speci men Type: BLOOD SPECIMENOrdering Facility: [facility] Address: [address] [place] [address] Performed By: #### 2 132-9, 64439-1 ####[facility] LABORATORYCLIA [id number] [place] [address] [place] Bilirubin [Mass/Vol] 0.7 mg/dL Normal 0.2-1.3 [facility] Comment on above: Order Comment: Speci men Type: BLOOD SPECIMENOrdering Facility: [facility] Address: [address] [place] [address] Performed By: #### 2 132-9, 05855-5 ####[facility] LABORATORYCLIA [id number] [place] [address] [place] Calcium [Mass/Vol] 9.8 mg/dL Normal 8.5-10.2 [facility] Comment on above: Order Comment: Speci men Type: BLOOD SPECIMENOrdering Facility: [facility] Address: [address] [place] [address] Performed By: #### 2 132-9, 34757-6 ####[facility] LABORATORYCLIA [id number] [place] [address] [place] Chloride [Moles/Vol] 102 mmol/L Normal 98-107 [facility] Comment on above: Order Comment: Speci men Type: BLOOD SPECIMENOrdering Facility: [facility] Address: [address] [place] [address] Performed By: #### 2 132-9, 18020-4 ####Stream5LUIS ALFREDO [facility] LABORATORYCLIA [id number] [place] [address] [place] CO2 [Moles/Vol] 26 mmol/L Normal 22-30 [facility] Comment on above: Order Comment: Speci men Type: BLOOD SPECIMENOrdering Facility: [facility] Address: [address] [place] [address] Performed By: #### 2 132-9, ####Stream5[facility] CENTERIA [id number] [address] OF [facility] Creatinine [Mass/Vol] 0.85 mg/dL Normal 0.58-0.96 [facility] Comment on above: Order Comment: Speci men Type: BLOOD SPECIMENOrdering Facility: [facility] Address: [address] [place] [address] Performed By: #### 2 132-9, 16433-8 ####Stream5[facility] MEDICAL CENTERIA [id number] [address] Creatinine and Glomerular filtration rate.predicted panel (S/P/Bld) 71 mL/min/1.73m??? Normal >=60 [facility] Comment on above: Order Comment: Speci men Type: BLOOD SPECIMENOrdering Facility: [facility] Address: [address] [place] [address] Result Comment: Aaron mated Glomerular Filtration Rate [...] actual GFR. Performed By: #### 2 132-9, 94611-6 ####[employer] [facility] LABORATORYCLIA [id number] [place] [id number] [place] Glucose [Mass/Vol] 86 mg/dL Normal 74-99 [facility] Comment on above: Order Comment: Lenard men Type: BLOOD SPECIMENOrdering Facility: [facility] Address: [address] [place], [place] [address] Result Comment: The [place] [employer] (ADA) provides guidance for cutoff [...] Standards of Medical Care in Diabetes 2016, [place] [employer]. Diabetes Care. 2016.39(Suppl 1). Performed By: #### 2 132-9, 52219-2 ####[facility] LABORATORYCLIA [id number] [place] [id number] [place] Potassium [Moles/Vol] 4.9 mmol/L Normal 3.7-5.1 [facility] Comment on above: Order Comment: Lenard jesus Type: BLOOD SPECIMENOrdering Facility: [facility] Address: [address] [place], [place] [address] Performed By: #### 2 132-9, ####[facility] LABORATORYCLIA [id number] [place] [address] [place] Protein [Mass/Vol] 7.4 g/dL Normal 6.3-8.0 [facility] Comment on above: Order Comment: Lenard jesus Type: BLOOD SPECIMENOrdering Facility: [facility] Address: [address] [place], [place] [address] Performed By: #### 2 132-9, 30526-7 ####[facility] LABORATORYCLIA [id number] [place] [address] [place] Sodium [Moles/Vol] 140 mmol/L Normal 136-144 [facility] Comment on above: Order Comment: Speci men Type: BLOOD SPECIMENOrdering Facility: [facility] Address: [address] [place] [address] Performed By: #### 2 132-9, 54506-0 ####[facility] LABORATORYCLIA [id number] [place] [address] [place] Urea nitrogen [Mass/Vol] 23 mg/dL High 7-21 [facility] Comment on above: Order Comment: Speci men Type: BLOOD SPECIMENOrdering Facility: [facility] Address: [address] [place] [address] Performed By: #### 2 132-9, 81448-2 ####[facility] LABORATORYCLIA [id number] [place] [address] [place] Magnesium SerPl-mCncon 07-08 Magnesium [Mass/Vol] 2.0 mg/dL Normal 1.7-2.3 [facility] Comment on above: Order Comment: Speci men Type: BLOOD SPECIMENOrdering Facility: [facility] Address: [address] [place] [address] Performed By: #### 3 016-3, 44878-4, 98898-0, 7 ####[facility] LABORATORYCLIA [id number] [place] [address] [place] NT-proBNP SerPl-mCncon 07-08 Natriuretic peptide.B prohormone N-Terminal [Mass/Vol] 2199 pg/mL High <450 [facility] Comment on above: Order Comment: Speci men Type: BLOOD SPECIMENOrdering Facility: [facility] Address: [address] [place] [address] Performed By: #### 3 016-3, 41445-6, , 3023-11 ####[facility] LABORATORYCLIA [id number] [place] [address] [place] T4 Free SerPl-mCncon 07-08- 025 Free T4 [Mass/Vol] 1.8 ng/dL High 0.9-1.7 [facility] Comment on above: Order Comment: Speci men Type: BLOOD SPECIMENOrdering Facility: [facility] Address: [address] [place] [address] Performed By: #### 3 016-3, 21446-3, 11172-5, 3024-7 ####[facility] LABORATORYCLIA [id number] [place] [address] [place] TSH SerPl-aCncon 07-08-2024 TSH Qn 0.814 m[IU]/L Normal 0.270-4.200 [facility] Comment on above: Order Comment: Speci men Type: BLOOD SPECIMENOrdering Facility: [facility] Address: [address] [place] [address] Performed By: #### 3 016-3, 17667-2, 46890-7, 3024-7 ####[facility] LABORATORYCLIA [id number] [place] [address] [place] Urinalysis complete panel (U )on 07-08-2024 Bacteria LM.HPF (Urine sed) [#/Area] Negative Normal Negative [facility] Comment on above: Order Comment: Speci men Type: URINE SPECIMENOrdering Facility: [facility] Address: [address] [place] [address] Performed By: #### 2 4356-8 ####[facility] LABCLIA [id number] [place] [address] [place] Bilirubin Ql (U) Negative Normal Negative [facility] Comment on above: Order Comment: Speci men Type: URINE SPECIMENOrdering Facility: [facility] Address: [address] [place] [address] Performed By: #### 2 4356-8 ####[facility] LABCLIA [id number] [place] [address] [place] Clarity (Unsp spec) Clear Normal Clear [facility] Comment on above: Order Comment: Speci men Type: URINE SPECIMENOrdering Facility: [facility] Address: [address] [place] [address] Performed By: #### 2 4356-8 ####[facility] LABCLIA [id number] [address], [place] [address] [place] Color (U) Yellow Normal Yellow [facility] Comment on above: Order Comment: Speci men Type: URINE SPECIMENOrdering Facility: [facility] Address: [address] [place] [address] Performed By: #### 2 4356-8 ####[facility] LABIA [id number] [address], [place] [address] [place] Epithelial cells LM.HPF (Urine sed) [#/Area] Few Normal [facility] Comment on above: Order Comment: Speci men Type: URINE SPECIMENOrdering Facility: [facility] Address: [address] [place] [address] Performed By: #### 2 4356-8 ####[facility] LABIA [id number] [address], [facility] [place] Glucose Test strip (U) [Mass/Vol] Negative Normal Negative [facility] Comment on above: Order Comment: Speci men Type: URINE SPECIMENOrdering Facility: [facility] Address: [address] [place] [address] Performed By: #### 2 4356-8 ####[facility] LABIA [id number] [address], [facility] [place] Hemoglobin Ql (U) Negative Normal Negative [facility] Comment on above: Order Comment: Speci men Type: URINE SPECIMENOrdering Facility: [facility] Address: [address] [place] [address] Performed By: #### 2 4356-8 ####[facility] LABCLIA [id number] [address] [place] [address] [place] Hyaline casts (Urine sed) [#/Area] 0 /[LPF] Normal 0 /LPF [facility] Comment on above: Order Comment: Speci men Type: URINE SPECIMENOrdering Facility: [facility] Address: [address] [place] [address] Performed By: #### 2 4356-8 ####[facility] LABCLIA [id number] [facility] [address] [place] [address] [place] Ketones Ql (U) Negative Normal Negative [facility] Comment on above: Order Comment: Speci men Type: URINE SPECIMENOrdering Facility: [facility] Address: [address] [place] [address] Performed By: #### 2 4356-8 ####[facility] LABCLIA [id number] [address], [facility] [place] Leukocyte esterase Test strip Ql (U) Negative Normal Negative [facility] Comment on above: Order Comment: Speci men Type: URINE SPECIMENOrdering Facility: [facility] Address: [address] [place] [address] Performed By: #### 2 4356-8 ####[facility] LABCLIA [id number] [address], [facility] [place] Nitrite Ql (U) Negative Normal Negative [facility] Comment on above: Order Comment: Speci men Type: URINE SPECIMENOrdering Facility: [facility] Address: [address] [place] [address] Performed By: #### 2 4356-8 ####[facility] LABCLIA [id number] [address] [place] [address] [place] pH (U) 6.0 [pH] Normal <8.5 [facility] Comment on above: Order Comment: Speci men Type: URINE SPECIMENOrdering Facility: [facility] Address: [address] [place] [address] Performed By: #### 2 4356-8 ####[facility] LABCLIA [id number] [address] [place] [address] [place] Protein (U) [Mass/Vol] Negative Normal Negative Cl [facility] Comment on above: Order Comment: Speci men Type: URINE SPECIMENOrdering Facility: [facility] Address: [address] [place] [address] Performed By: #### 2 4356-8 ####[facility] [id number] [place] [address] [place] RBC LM.HPF (Urine sed) [#/Area] 0-2 /HPF Normal 0-2 /HPF [facility] Comment on above: Order Comment: Speci men Type: URINE SPECIMENOrdering Facility: [facility] Address: [address] [place] [address] Performed By: #### 2 4356-8 ####[facility] [id number] [place] [address] [place] Specific gravity (U) [Rel density] 1.022 Normal 1.005-1.030 [facility] Comment on above: Order Comment: Speci men Type: URINE SPECIMENOrdering Facility: [facility] Address: [address] [place] [address] Performed By: #### 2 4356-8 ####[facility] [id number] [address] [place] Urobilinogen Ql (U) 0.2 EU/dL Normal 0.2-1.0 EU/dL [facility] Comment on above: Order Comment: Speci men Type: URINE SPECIMENOrdering Facility: [facility] Address: [address] [place] [address] Performed By: #### 2 4356-8 ####[facility] [id number] [place] [address] [place] WBC LM.HPF (Urine sed) [#/Area] 0-5 /HPF Normal 0-5 /HPF [facility] Comment on above: Order Comment: Speci men Type: URINE SPECIMENOrdering Facility: [facility] Address: [address] [place] [address] Performed By: #### 2 4356-8 ####[facility] LABCLIA [id number] [place] [address] [place] Vit B12 SerPl-mCncon 07-08- 025 Cobalamin (Vitamin B12) [Mass/Vol] pg/mL High 232-1245 [facility] Comment on above: Order Comment: Speci men Type: BLOOD SPECIMENOrdering Facility: [facility] Address: [address] [place] [address] Performed By: #### 2 132-9, 34907-2 ####[facility] LABORATORYCLIA [id number] [place] [id number] [place] XR CHEST 2V [...] and scoliosis. IMPRESSION: No acute radiographic abnormality. Wafer Fab Operator: PSCB Transcribe Date/Time: Jul 09 2024 11:46A Dictated by : PERLA ONEILL MD This examination was interpreted and the report reviewed and electronically signed by: PERLA ONEILL MD on Jul 09 2024 11:47AM EST [id number] Normal [facility] CNPPadmini 07-01-2024 CNPN Telephone (FAMPWS) ----- NADIRSANDRA ([id number]) 1945 F Date Time Provider Department 07/01/24 [...] right [M19.071] 08/02/2022 Coronary artery disease involving united keetoowah lopez*08/02/2022 Vitamin D deficiency [E55.9] 08/02/2022 Somatic [...] 07/13/2023 Ac (more content not included)... Normal [facility] CNOVon 06-20-2024 CNOV Office Visit (FAMPWS ) ----- SANDRA SCHMITZ ([id number]) 1945 F Date Time Provider Department 06/20/24 [...] on chronic systolic CHF (congestive heart failure) ([facility]) 05/03/2020 Aspiration pneumonia ([facility]) 05/30/2020 Chest pain 05/03/2020 Chest pressure 01/23/2013 Chronic diastolic congestive heart failure ([facility]) 02/14/2021 Clostridium difficile diarrhea 09/28/2020 Complete uterovaginal prolapse Cystocele, midline Essential hypertension 06/14/2020 Homozygous Factor V Leiden mutation ([facility]) 05/03/2020 Hypothyroidism IBS (irritable bowel syndrome) 01/23/2013 [...] Right a (more content not included)... Normal [facility] CNCOon 06-06-2024 CNCO Letter Text Normal [facility] CNOVon 05-30-2024 CNOV Office Visit (FAMPWS ) ----- SANDRA SCHMITZ ([id number]) 1945 F [place]* Date Time Provider [...] on chronic systolic CHF (congestive heart failure) ([facility]) 05/03/2020 Aspiration pneumonia ([facility]) 05/30/2020 Chest pain 05/03/2020 Chest pressure 01/23/2013 Chronic diastolic congestive heart failure ([facility]) 02/14/2021 Clostridium difficile diarrhea 09/28/2020 Complete uterovaginal prolapse Cystocele, midline Essential hypertension 06/14/2020 Homozygous Factor V Leiden mutation ([facility]) 05/03/2020 Hypothyroidism IBS (irritable bowel syndrome) 01/23/2013 [...] head, C3-6NRrSBr (more content not included)... Normal [facility] CNOVon 05-12-2024 CNOV Office Visit (FAMPWS ) ----- SANDRA SCHMITZ ([id number]) 1945 F [place]* Date Time Provider Department 05/12/24 3:20 PM [facility] today, we recorded the [...] on chronic systolic CHF (congestive heart failure) ([facility]) 05/03/2020 Aspiration pneumonia ([facility]) 05/30/2020 Chest pain 05/03/2020 Chest pressure 01/23/2013 Chronic diastolic congestive heart failure ([facility]) 02/14/2021 Clostridium difficile diarrhea 09/28/2020 Complete uterovaginal prolapse Cystocele, midline Essential hypertension 06/14/2020 Homozygous Factor V Leiden mutation ([facility]) 05/03/2020 Hypothyroidism IBS (irritable bowel syndrome) 01/23/2013 [...] posterior T3-10ERrSBl (more content not included)... Normal [facility] CBC W Auto Differential pane l (Bld)on 04-22-2024 Basophils (Bld) [#/Vol] 0.11 10*3/uL High [facility] Basophils/100 WBC (Bld) 0.8 % [facility] Differential cell count method Nom (Bld) Auto [facility] Eosinophils (Bld) [#/Vol] 0.19 10*3/uL [facility] Eosinophils/100 WBC (Bld) 1.3 % [facility] Erythrocyte distribution width (RBC) [Ratio] 14.1 % 11.5 - 15.0 % [facility] Hematocrit (Bld) [Volume fraction] 41.0 % 36.0 - 46.0 % [facility] Hemoglobin (Bld) [Mass/Vol] 12.5 g/dL 11.5 - 15.5 g/dL [facility] Immature granulocytes (Bld) [#/Vol] 0.09 10*3/uL [facility] Immature granulocytes/100 WBC (Bld) 0.6 % [facility] Interpretation and review of laboratory results Abnormal [facility] Lymphocytes (Bld) [#/Vol] 4.47 10*3/uL High [facility] Lymphocytes/100 WBC (Bld) 31.0 % [facility] MCH (RBC) [Entitic mass] 28.0 pg 26.0 - 34.0 pg [facility] MCHC (RBC) [Mass/Vol] 30.5 g/dL 30.5 - 36.0 g/dL [facility] MCV (RBC) [Entitic vol] 91.7 fL 80.0 - 100.0 fL [facility] Monocytes (Bld) [#/Vol] 1.29 10*3/uL High NINF [facility] Monocytes/100 WBC (Bld) 8.9 % [facility] Neutrophils (Bld) [#/Vol] 8.29 10*3/uL High [facility] Neutrophils/100 WBC (Bld) 57.4 % [facility] Nucleated RBC (Bld) [#/Vol] NINF [facility] Nucleated RBC/100 WBC (Bld) [Ratio] 0.0 % /100 WBC [facility] Platelet mean volume (Bld) [Entitic vol] 10.4 fL 9.0 - 12.7 fL [facility] Platelets (Bld) [#/Vol] 317 10*3/uL [facility] RBC (Bld) [#/Vol] 4.47 10*6/uL 3.90 - 5.2 0 m/uL [facility] WBC (Bld) [#/Vol] 14.44 10*3/uL [facility] Basophils (Bld) [#/Vol] 0.11 10*3/uL High <0.11 [facility] Comment on above: Order Comment: Speci men Type: BLOOD SPECIMENOrdering Facility: [facility] Address: [address] [place] [address] Performed By: #### 5 7021-8 ####[facility] LABCLIA [id number] [place] [address] [place] Basophils/100 WBC (Bld) 0.8 % Normal [facility] Comment on above: Order Comment: Speci men Type: BLOOD SPECIMENOrdering Facility: [facility] Address: [address] [place] [address] Performed By: #### 5 7021-8 ####[facility] LABCLIA [id number] [place] [address] [place] Differential cell count method Nom (Bld) Auto Normal [facility] Comment on above: Order Comment: Speci men Type: BLOOD SPECIMENOrdering Facility: [facility] Address: [address] [place] [address] Performed By: #### 5 7021-8 ####[facility] LABCLIA [id number] [place] [address] [place] Eosinophils (Bld) [#/Vol] 0.19 10*3/uL Normal <0.46 [facility] Comment on above: Order Comment: Speci men Type: BLOOD SPECIMENOrdering Facility: [facility] Address: [address] [place] [address] Performed By: #### 5 7021-8 ####[facility] LABCLIA [id number] [place] [address] [place] Eosinophils/100 WBC (Bld) 1.3 % Normal [facility] Comment on above: Order Comment: Speci men Type: BLOOD SPECIMENOrdering Facility: [facility] Address: [address] [place] [address] Performed By: #### 5 7021-8 ####[facility] LABCLIA [id number] [place] [address] [place] Erythrocyte distribution width (RBC) [Ratio] 14.1 % Normal 11.5-15.0 [facility] Comment on above: Order Comment: Speci men Type: BLOOD SPECIMENOrdering Facility: [facility] Address: [address] [place] [address] Performed By: #### 5 7021-8 ####[facility] LABCLIA [id number] [place] [address] [place] Hematocrit (Bld) [Volume fraction] 41.0 % Normal 36.0-46.0 [facility] Comment on above: Order Comment: Speci men Type: BLOOD SPECIMENOrdering Facility: [facility] Address: [address] [place] [address] Performed By: #### 5 7021-8 ####[facility] LABCLIA [id number] [place] [address] [place] Hemoglobin (Bld) [Mass/Vol] 12.5 g/dL Normal 11.5-15.5 [facility] Comment on above: Order Comment: Speci men Type: BLOOD SPECIMENOrdering Facility: [facility] Address: [address] [place] [address] Performed By: #### 5 7021-8 ####[facility] LABCLIA [id number] [place] [address] [place] Immature granulocytes (Bld) [#/Vol] 0.09 10*3/uL Normal <0.10 [facility] Comment on above: Order Comment: Speci men Type: BLOOD SPECIMENOrdering Facility: [facility] Address: [address] [place] [address] Performed By: #### 5 7021-8 ####[facility] LABCLIA [id number] [place] [address] [place] Immature granulocytes/100 WBC (Bld) 0.6 % Normal [facility] Comment on above: Order Comment: Speci men Type: BLOOD SPECIMENOrdering Facility: [facility] Address: [address] [place] [address] Performed By: #### 5 7021-8 ####[facility] LABCLIA [id number] [place] [address] [place] Lymphocytes (Bld) [#/Vol] 4.47 10*3/uL High 1.00-4.00 [facility] Comment on above: Order Comment: Speci men Type: BLOOD SPECIMENOrdering Facility: [facility] Address: [address] [place] [address] Performed By: #### 5 7021-8 ####[facility] LABIA [id number] [place] [address] [place] Lymphocytes/100 WBC (Bld) 31.0 % Normal [facility] Comment on above: Order Comment: Speci men Type: BLOOD SPECIMENOrdering Facility: [facility] Address: [address] [place] [address] Performed By: #### 5 7021-8 ####[facility] LABIA [id number] [place] [address] [place] MCH (RBC) [Entitic mass] 28.0 pg Normal 26.0-34.0 [facility] Comment on above: Order Comment: Speci men Type: BLOOD SPECIMENOrdering Facility: [facility] Address: [address] [place] [address] Performed By: #### 5 7021-8 ####[facility] LABIA [id number] [place] [address] [place] MCHC (RBC) [Mass/Vol] 30.5 g/dL Normal 30.5-36.0 [facility] Comment on above: Order Comment: Speci men Type: BLOOD SPECIMENOrdering Facility: [facility] Address: [address] [place] [address] Performed By: #### 5 7021-8 ####[facility] LABIA [id number] [place] [address] [place] MCV (RBC) [Entitic vol] 91.7 fL Normal 80.0-100.0 [facility] Comment on above: Order Comment: Speci men Type: BLOOD SPECIMENOrdering Facility: [facility] Address: [address] [place] [address] Performed By: #### 5 7021-8 ####[facility] LABCLIA [id number] [place] [address] [place] Monocytes (Bld) [#/Vol] 1.29 10*3/uL High <0.87 [facility] Comment on above: Order Comment: Speci men Type: BLOOD SPECIMENOrdering Facility: [facility] Address: [address] [place] [address] Performed By: #### 5 7021-8 ####[facility] LABCLIA [id number] [place] [address] [place] Monocytes/100 WBC (Bld) 8.9 % Normal [facility] Comment on above: Order Comment: Speci men Type: BLOOD SPECIMENOrdering Facility: [facility] Address: [address] [place] [address] Performed By: #### 5 7021-8 ####[facility] LABCLIA [id number] [place] [address] [place] Neutrophils (Bld) [#/Vol] 8.29 10*3/uL High 1.45-7.50 [facility] Comment on above: Order Comment: Speci men Type: BLOOD SPECIMENOrdering Facility: [facility] Address: [address] [place] [address] Performed By: #### 5 7021-8 ####[facility] LABCLIA [id number] [place] [address] [place] Neutrophils/100 WBC (Bld) 57.4 % Normal [facility] Comment on above: Order Comment: Speci men Type: BLOOD SPECIMENOrdering Facility: [facility] Address: [address] [place] [address] Performed By: #### 5 7021-8 ####[facility] LABCLIA [id number] [place] [address] [place] Nucleated RBC (Bld) [#/Vol] 10*3/uL Normal <0.01 [facility] Comment on above: Order Comment: Speci men Type: BLOOD SPECIMENOrdering Facility: [facility] Address: [address] [place] [address] Performed By: #### 5 7021-8 ####[facility] LABCLIA [id number] [place] [address] [place] Nucleated RBC/100 WBC (Bld) [Ratio] 0.0 /100 WBC Normal [facility] Comment on above: Order Comment: Speci men Type: BLOOD SPECIMENOrdering Facility: [facility] Address: [address] [place] [address] Performed By: #### 5 7021-8 ####[facility] LABCLIA [id number] [place] [address] [place] Platelet mean volume (Bld) [Entitic vol] 10.4 fL Normal 9.0-12.7 [facility] Comment on above: Order Comment: Speci men Type: BLOOD SPECIMENOrdering Facility: [facility] Address: [address] [place] [address] Performed By: #### 5 7021-8 ####[facility] LABCLIA [id number] [place] [address] [place] Platelets (Bld) [#/Vol] 317 10*3/uL Normal 150-400 [facility] Comment on above: Order Comment: Speci men Type: BLOOD SPECIMENOrdering Facility: [facility] Address: [address] [place] [address] Performed By: #### 5 7021-8 ####[facility] LABCLIA [id number] [place] [address] [place] RBC (Bld) [#/Vol] 4.47 10*6/uL Normal 3.90-5.20 [facility] Comment on above: Order Comment: Speci men Type: BLOOD SPECIMENOrdering Facility: [facility] Address: [address] [place] [address] Performed By: #### 5 7021-8 ####[facility] LABCLIA [id number] [place] [id number] [place] WBC (Bld) [#/Vol] 14.44 10*3/uL High 3.70-11.00 [facility] Comment on above: Order Comment: Speci men Type: BLOOD SPECIMENOrdering Facility: [facility] Address: [address] [place] [address] Performed By: #### 5 7021-8 ####[facility] LABCLIA [id number] [place] [id number] [place] CNOVon 04-22-2024 [facility] ----- SANDRA SCHMITZ ([id number]) 1945 F [place] Date Time Provider Department 04/22/24 2:00 PM [facility] During [facility] visit today, we recorded the [...] on chronic systolic CHF (congestive heart failure) ([facility]) 05/03/2020 Aspiration pneumonia ([facility]) 05/30/2020 Chest pain 05/03/2020 Chest pressure 01/23/2013 Chronic diastolic congestive heart failure ([facility]) 02/14/2021 Clostridium difficile diarrhea 09/28/2020 Complete uterovaginal prolapse Cystocele, midline Essential hypertension 06/14/2020 Homozygous Factor V Leiden mutation ([facility]) 05/03/2020 Hypothyroidism IBS (irritable bowel syndrome) 01/23/2013 [...] medications for this visit. ALLERGIES Allergen Reactions Eimlio Inhibitors Intolerance Short [...] intact b (more content not included)... Normal [facility] CRP SerPl-ncon 04-22-2024 CRP [Mass/Vol] 5.4 mg/dL High <0.9 [facility] Comment on above: Order Comment: Speci men Type: BLOOD SPECIMENOrdering Facility: [facility] Address: [address] [place], [place] [address] Performed By: #### 3 040-3, 1987-09 ####[facility] LABCLIA [id number] [address] [address] [place] Comprehensive metabolic 2000 panelon 04-22-2024 Albumin [Mass/Vol] 4.0 g/dL Normal 3.9-4.9 [facility] Comment on above: Order Comment: Speci men Type: BLOOD SPECIMENOrdering Facility: [facility] Address: [address] [place] [address] Performed By: #### 3 016-3, 3024-7, 305-0, 21113-7 ####[facility] LABCLIA [id number] [place] [address] [place] ALP [Catalytic activity/Vol] 76 U/L Normal 34-123 [facility] Comment on above: Order Comment: Speci men Type: BLOOD SPECIMENOrdering Facility: [facility] Address: [address] [place] [address] Performed By: #### 3 016-3, 302-7, 305-0, 69689-3 ####[facility] LABCLIA [id number] [place] [address] [place] ALT [Catalytic activity/Vol] 8 U/L Normal 7-38 [facility] Comment on above: Order Comment: Speci men Type: BLOOD SPECIMENOrdering Facility: [facility] Address: [address] [place] [address] Performed By: #### 3 016-3, 3024-7, 305-0, 80082-1 ####[facility] LABCLIA [id number] [place] [id number] [place] Anion gap [Moles/Vol] 11 mmol/L Normal 8-15 [facility] Comment on above: Order Comment: Speci men Type: BLOOD SPECIMENOrdering Facility: [facility] Address: [address] [place] [address] Performed By: #### 3 016-3, 3024-7, 305-0, 42965-5 ####[facility] LABCLIA [id number] [place] [address] [place] AST [Catalytic activity/Vol] 14 U/L Normal 13-35 [facility] Comment on above: Order Comment: Speci men Type: BLOOD SPECIMENOrdering Facility: [facility] Address: [address] [place] [address] Performed By: #### 3 016-3, 3024-7, 305-0, 55006-7 ####[facility] LABCLIA [id number] [place] [address] [place] Bilirubin [Mass/Vol] 0.8 mg/dL Normal 0.2-1.3 [facility] Comment on above: Order Comment: Speci men Type: BLOOD SPECIMENOrdering Facility: [facility] Address: [address] [place] [address] Performed By: #### 3 016-3, 3024-7, 3050-0, 50160-9 ####[facility] LABIA [id number] [place] [address] [place] Calcium [Mass/Vol] 9.4 mg/dL Normal 8.5-10.2 [facility] Comment on above: Order Comment: Speci men Type: BLOOD SPECIMENOrdering Facility: [facility] Address: [address] [place] [address] Performed By: #### 3 016-3, 3024-7, 305-0, 35917-1 ####[facility] [facility] LABIA [id number] [place] [address] [place] Chloride [Moles/Vol] 103 mmol/L Normal 98-107 [facility] Comment on above: Order Comment: Speci men Type: BLOOD SPECIMENOrdering Facility: [facility] Address: [address] [place] [address] Performed By: #### 3 016-3, 3024-7, 305-0, 85295-6 ####[facility] LABCLIA [id number] [place] [address] [place] CO2 [Moles/Vol] 27 mmol/L Normal 22-30 [facility] Comment on above: Order Comment: Speci men Type: BLOOD SPECIMENOrdering Facility: [facility] Address: [address] [place] [address] Performed By: #### 3 016-3, 3024-7, 305-0, 73353-1 ####[facility] LABIA [id number] [place] [address] [place] Creatinine [Mass/Vol] 0.97 mg/dL High 0.58-0.96 [facility] Comment on above: Order Comment: Speci men Type: BLOOD SPECIMENOrdering Facility: [facility] Address: [address] [place] [address] Performed By: #### 3 016-3, 3024-7, 305-0, 25055-5 ####[facility] [id number] [place] [address] [place] Creatinine and Glomerular filtration rate.predicted panel (S/P/Bld) 60 mL/min/1.73m??? Normal >=60 [facility] Comment on above: Order Comment: Speci men Type: BLOOD SPECIMENOrdering Facility: [facility] Address: [address] [place] [address] Result Comment: Aaron mated Glomerular Filtration Rate [...] Performed By: #### 3 016-3, 3024-7, 305-0, 85360-4 ####[facility] LABIA [id number] [place] [id number] [place] Glucose [Mass/Vol] 90 mg/dL Normal 74-99 [facility] Comment on above: Order Comment: Speci men Type: BLOOD SPECIMENOrdering Facility: [facility] Address: [address] [place] [address] Result Comment: The [place] Diabetes Association (ADA) provides guidance for cutoff [...] Standards of Medical Care in Diabetes 2016, [place] [employer]. Diabetes Care. 2016.39(Suppl 1). Performed By: #### 3 016-3, 3024-7, 305-0, 30314-2 ####[facility] LABCLIA [id number] [place] [address] [place] Potassium [Moles/Vol] 4.1 mmol/L Normal 3.7-5.1 [facility] Comment on above: Order Comment: Lenard jesus Type: BLOOD SPECIMENOrdering Facility: [facility] Address: [address] [place] [address] Performed By: #### 3 016-3, 3024-7, 305-0, 42018-5 ####[facility] LABCLIA [id number] [place] [id number] [place] Protein [Mass/Vol] 7.4 g/dL Normal 6.3-8.0 [facility] Comment on above: Order Comment: Ernestinei men Type: BLOOD SPECIMENOrdering Facility: [facility] Address: [address] [place] [address] Performed By: #### 3 016-3, 3024-7, 305-0, 23989-5 ####[facility] LABCLIA [id number] [place] [address] [place] Sodium [Moles/Vol] 141 mmol/L Normal 136-144 [facility] Comment on above: Order Comment: Speci men Type: BLOOD SPECIMENOrdering Facility: [facility] Address: [address] [place] [address] Performed By: #### 3 016-3, 3024-7, 305-0, 76052-2 ####[facility] LABCLIA [id number] [place] [address] [place] Urea nitrogen [Mass/Vol] 19 mg/dL Normal 7-21 [facility] Comment on above: Order Comment: Speci men Type: BLOOD SPECIMENOrdering Facility: [facility] Address: [address] [place] [address] Performed By: #### 3 016-3, 3024-7, 305-0, 71906-8 ####[facility] LABCLIA [id number] [place] [address] [place] Lipase SerPl-cCncon 04-22-20 24 Lipase [Catalytic activity/Vol] 25 U/L Normal 16-61 [facility] Comment on above: Order Comment: Speci men Type: BLOOD SPECIMENOrdering Facility: [facility] Address: [address] [place] [address] Performed By: #### 3 040-3, 1987-09 ####[facility] LABCLIA [id number] [place] [id number] [place] T3Free SerPl-mCncon 04-22-20 24 Free T3 [Mass/Vol] 2.1 pg/mL Low 2.3-4.1 [facility] Comment on above: Order Comment: Speci men Type: BLOOD SPECIMENOrdering Facility: [facility] Address: [address] [place] [address] Performed By: #### 3 016-3, 3024-7, 305-0, 39950-0 ####[facility] LABCLIA [id number] [place] [id number] [place] T4 Free SerPl-mCncon 024 Free T4 [Mass/Vol] 1.6 ng/dL Normal 0.9-1.7 [facility] Comment on above: Order Comment: Speci men Type: BLOOD SPECIMENOrdering Facility: [facility] Address: [address] [place] [address] Performed By: #### 3 016-3, 3024-7, 3051-0, 19671-0 ####[facility] LABIA [id number] [place] [address] [place] TSH SerPl-aCncon 04-22-2024 TSH Qn 0.233 m[IU]/L Low 0.270-4.200 [facility] Comment on above: Order Comment: Speci men Type: BLOOD SPECIMENOrdering Facility: [facility] Address: [address] [place] [address] Performed By: #### 3 016-3, 3024-7, 3051-0, 02857-2 ####[facility] [id number] [place] [address] [place] UA DIP, URINE (POC)on 2023 BILIRUBIN UA (POCT) Negative Negative [facility] CLARITY UA (POCT) Clear [facility] COLOR UA (POCT) Yellow [facility] GLUCOSE UA (POCT) Negative Negative mg/dL [facility] Hemoglobin Ql (U) Negative Negative [facility] KETONE UA (POCT) Negative Negative mg/dL [facility] LEUKOCYTES UA (POCT) Negative Negative [facility] NITRITE UA (POCT) Negative Negative [facility] PH UA (POCT) 6.0 4.5 - 8.0 [facility] Protein Ql (U) Negative Negative mg/dL [facility] SPECIFIC GRAVITY UA (POCT) 1.015 1.005 - 1.030 [facility] UROBILINOGEN UA (POCT) 0.2 Jeanette l E.U./dL [facility] Location:[facility], [address] [facility], [place], [address] [facility] POINT OF CARE [facility] 12 Lead EKGon 03-27-2024 12 Lead EKG [facility] [address] [place] [address] 12 Lead EKG 03/27/24 0108 MR#: [id number] Acct: [id number] Name: SANDRA SCHMITZ Rep #: [id number] : 1945 78 From: Yousuf Parker MD [...] ECG Confirmed by TEO BRYAN, MONICA ([id number]), editor index SINCERE HINSON ([id number]) on 03/27/2024 1:51:10 PM Referred By: Confirmed By: MONICA PARKER MD 03/27/24 1351 Date Yousuf Parker MD CC: Dr. Mandeep Houser DO; Parker Nunez DO Signed Normal [facility] Abdomen/Pelvis W IV Cont ONL Yon 03-27-2024 Abdomen/Pelvis W IV Cont ONLY [facility] Imaging Services [address] [place] [address] Abdomen/Pelvis W IV Cont ONLY MR#: [id number] Acct: [id number] Name: SANDRA SCHMITZ Rep #: [id number] : 1945 F 78 From: Lacy Virk PCP: Dr. Mandeep Houser DO Status: REG ER Study: Abdomen/Pelvis W IV Cont ONLY Date of Exam: Exam# [id number] Ordering Dr: Parker Nunez DO [id number] EXAM: CT Abdomen And Pelvis W/ Contrast [...] , CC: Dr. Mandeep Houser DO; Parker Nunze DO [employer]fer [employer] Operator: Signed Normal [facility] BNP,B-Type NATRIURETIC PEPTI Lizeth 03-27-2024 Natriuretic peptide B (Bld) [Mass/Vol] 268.9 pg/mL High 0-100 [facility] Comment on above: Performed By: #### L 501.5200, L100.0100, L500.3400, L500.2500, L300.8000, L503.6620, L501.2450 #### [facility] Laboratory [address] [place], [address] Basic Metabolic Profile (BMP )on 03-27-2024 BUN/CRE 30.8 RATIO High 10-20 [facility] Comment on above: Performed By: #### L 501.5200, L100.0100, L500.3400, L500.2500, L300.8000, L503.6620, L501.2450 #### [facility] [address] [place], [address] CA,Total 9.1 mg/dL Normal 8.5-10.1 [facility] Comment on above: Performed By: #### L 501.5200, L100.0100, L500.3400, L500.2500, L300.8000, L503.6620, L501.2450 #### [facility] [address] [place], [address] Chloride [Moles/Vol] 105 mmol/L Normal 98-107 [facility] Comment on above: Performed By: #### L 501.5200, L100.0100, L500.3400, L500.2500, L300.8000, L503.6620, L501.2450 #### [facility] [address] [place], [address] CO2 [Moles/Vol] 28.0 mmol/L Normal 21.0-32.0 [facility] Comment on above: Performed By: #### L 501.5200, L100.0100, L500.3400, L500.2500, L300.8000, L503.6620, L501.2450 #### [facility] [address] [place], [address] Creatinine [Mass/Vol] 1.07 mg/dL High 0.55-1.02 [facility] Comment on above: Result Comment: The validity of the calculated GFR GFRAA in patients over 70 years has not been determined. Clinical correlation is essential. Performed By: #### L 501.5200, L100.0100, L500.3400, L500.2500, L300.8000, L503.6620, L501.2450 #### [facility] [address] [place], [address] ECRCL 46.99 ml/min Normal [facility] Comment on above: Performed By: #### L 501.5200, L100.0100, L500.3400, L500.2500, L300.8000, L503.6620, L501.2450 #### [facility] [address] [place], [address] EST GFR - AA 64 mL/min Normal >60 [facility] Comment on above: Result Comment: Afri can [place] GFR Calc Performed By: #### L 501.5200, L100.0100, L500.3400, L500.2500, L300.8000, L503.6620, L501.2450 #### [facility] [address] [place], [address] GAP 6 Normal 5-15 [facility] Comment on above: Performed By: #### L 501.5200, L100.0100, L500.3400, L500.2500, L300.8000, L503.6620, L501.2450 #### [facility] [address] [place], [address] GFR/1.73 sq M.predicted among non-blacks MDRD (S/P/Bld) [Vol rate/Area] 53 mL/min/{1.73_m2} Low >60 [facility] Comment on above: Result Comment: Non- GFR Calc Performed By: #### L 501.5200, L100.0100, L500.3400, L500.2500, L300.8000, L503.6620, L501.2450 #### [facility] [address] [place], [address] Glucose [Mass/Vol] 103 mg/dL Normal 74-106 [facility] Comment on above: Result Comment: Fast ing Glucose result from 100 to 125 mg/dL suggests IMPAIRED HOMEOSTASIS per A.D.A. criteria. Performed By: #### L 501.5200, L100.0100, L500.3400, L500.2500, L300.8000, L503.6620, L501.2450 #### [facility] [address] [place], [address] Potassium [Moles/Vol] 3.8 mmol/L Normal 3.5-5.1 [facility] Comment on above: Performed By: #### L 501.5200, L100.0100, L500.3400, L500.2500, L300.8000, L503.6620, L501.2450 #### [facility] [address] [place], [address] Sodium [Moles/Vol] 139 mmol/L Normal 136-145 [facility] Comment on above: Performed By: #### L 501.5200, L100.0100, L500.3400, L500.2500, L300.8000, L503.6620, L501.2450 #### [facility] [address] [place], [address] Urea nitrogen [Mass/Vol] 33 mg/dL High 7-18 [facility] Comment on above: Performed By: #### L 501.5200, L100.0100, L500.3400, L500.2500, L300.8000, L503.6620, L501.2450 #### [facility] [address] [place], [address] CBC W/Diff, Automatedon 03-14 Absolute Lymph 3.11 X10 3/uL Normal 0.83-4.51 [facility] Comment on above: Performed By: #### L 501.5200, L100.0100, L500.3400, L500.2500, L300.8000, L503.6620, L501.2450 #### [facility] [address] [place], [address] Absolute Neut 8.8 X10 3/uL High 2.0-7.7 [facility] Comment on above: Performed By: #### L 501.5200, L100.0100, L500.3400, L500.2500, L300.8000, L503.6620, L501.2450 #### [facility] [address] [place], [address] Basophils/100 WBC (Bld) 0.9 % Normal 0-1 [facility] Comment on above: Performed By: #### L 501.5200, L100.0100, L500.3400, L500.2500, L300.8000, L503.6620, L501.2450 #### [facility] [address] [place], [address] Eosinophils/100 WBC (Bld) 2.3 % Normal 0-5 [facility] Comment on above: Performed By: #### L 501.5200, L100.0100, L500.3400, L500.2500, L300.8000, L503.6620, L501.2450 #### [facility] [address] [place], [address] Erythrocyte distribution width (RBC) [Ratio] 14.0 % Normal 11.6-14.6 [facility] Comment on above: Performed By: #### L 501.5200, L100.0100, L500.3400, L500.2500, L300.8000, L503.6620, L501.2450 #### [facility] [address] [place], [address] Hematocrit (Bld) [Volume fraction] 43.6 % Normal 37-47 [facility] Comment on above: Performed By: #### L 501.5200, L100.0100, L500.3400, L500.2500, L300.8000, L503.6620, L501.2450 #### [facility] [address] [place], [address] Hemoglobin (Bld) [Mass/Vol] 13.7 g/dL Normal 12.0-15.0 [facility] Comment on above: Performed By: #### L 501.5200, L100.0100, L500.3400, L500.2500, L300.8000, L503.6620, L501.2450 #### [facility] [address] [place], [address] IG% 1.100 High 0.0-0.9 [facility] Comment on above: Result Comment: IG% - Immature Granulocytes (promyelocytes, myelocytes and metamyelocytes) > 1% indicates that a LEFT SHIFT is Present. Performed By: #### L 501.5200, L100.0100, L500.3400, L500.2500, L300.8000, L503.6620, L501.2450 #### [facility] [address] [place], [address] Lymphocytes/100 WBC (Bld) 24.2 % Normal 19-41 [facility] Comment on above: Performed By: #### L 501.5200, L100.0100, L500.3400, L500.2500, L300.8000, L503.6620, L501.2450 #### [facility] [address] [place], [address] MCH (RBC) [Entitic mass] 28.9 pg Normal 27.0-32.0 [facility] Comment on above: Performed By: #### L 501.5200, L100.0100, L500.3400, L500.2500, L300.8000, L503.6620, L501.2450 #### [facility] [address] [place], [address] MCHC (RBC) [Mass/Vol] 31.4 g/dL Low 32-36 [facility] Comment on above: Performed By: #### L 501.5200, L100.0100, L500.3400, L500.2500, L300.8000, L503.6620, L501.2450 #### [facility] [address] [place], [address] MCV (RBC) [Entitic vol] 92.0 fL Normal 81-99 [facility] Comment on above: Performed By: #### L 501.5200, L100.0100, L500.3400, L500.2500, L300.8000, L503.6620, L501.2450 #### [facility] [address] [place], [address] Monocytes/100 WBC (Bld) 2.7 % Normal 0-10 [facility] Comment on above: Performed By: #### L 501.5200, L100.0100, L500.3400, L500.2500, L300.8000, L503.6620, L501.2450 #### [facility] [address] [place], [address] Neutrophils/100 WBC (Bld) 68.8 % Normal 47-70 [facility] Comment on above: Performed By: #### L 501.5200, L100.0100, L500.3400, L500.2500, L300.8000, L503.6620, L501.2450 #### [facility] [address] [place], [address] Nucleated RBC (Bld) [#/Vol] 0 10*3/uL Normal 0-5 [facility] Comment on above: Performed By: #### L 501.5200, L100.0100, L500.3400, L500.2500, L300.8000, L503.6620, L501.2450 #### [facility] [address] [place], [address] Platelet mean volume (Bld) [Entitic vol] 10.5 fL Normal 6.2-12.0 [facility] Comment on above: Performed By: #### L 501.5200, L100.0100, L500.3400, L500.2500, L300.8000, L503.6620, L501.2450 #### [facility] [address] [place], [address] Platelets (Bld) [#/Vol] 333 10*3/uL Normal 150-450 [facility] Comment on above: Performed By: #### L 501.5200, L100.0100, L500.3400, L500.2500, L300.8000, L503.6620, L501.2450 #### [facility] [address] [place], [address] RBC (Bld) [#/Vol] 4.74 10*6/uL Normal 4.2-5.4 [facility] Comment on above: Performed By: #### L 501.5200, L100.0100, L500.3400, L500.2500, L300.8000, L503.6620, L501.2450 #### [facility] [address] [place], [address] RDW SD 47.4 fl High 35.1-43.9 [facility] Comment on above: Performed By: #### L 501.5200, L100.0100, L500.3400, L500.2500, L300.8000, L503.6620, L501.2450 #### [facility] [address] [place], [address] WBC (Bld) [#/Vol] 12.8 10*3/uL High 4.4-11.0 [facility] Comment on above: Performed By: #### L 501.5200, L100.0100, L500.3400, L500.2500, L300.8000, L503.6620, L501.2450 #### [facility] [address] [place], [address] Chest PA and Lateralon 03-27 Chest PA and Lateral [facility] Services [address] [place] [address] Chest PA and Lateral MR#: [id number] Acct: [id number] Name: SANDRA SCHMITZ Rep #: [id number] : 1945 F 78 From: Lacy Virk PCP: Dr. Mandeep Houser DO Status: [facility] Study: Chest PA and Lateral Date of Exam: 03/27/24 Exam# [id number] Ordering Dr: Parker Nunez DO [id number] INDICATION: dyspnea EXAMINATION/TECHNIQUE: X-RAY - XR Chest [...] Dr. Mandeep Houser DO; Parker Nunez DO Wafer Fab Operator: Signed Normal [facility] D-Dimer Quantitative (DVT/PE )on 03-27-2024 D-DIMER QUANT 0.57 FEU/ug/m Invalid Interpretation Code 0.27-0.49 [facility] Comment on above: Result Comment: D-Di rosa elena ELEVATED (>0.49): Additional studies and clinical assessments are indicated to conclude diagnosis of: Deep Vein Thrombosis (DVT) or Pulmonary Embolism (PE) CRITICAL VALUE CALLED TO MMARTIAN 03/27/24 0155 Cristhian Agiurre. RESULTS READ BACK BY SAME. Performed By: #### L 501.5200, L100.0100, L500.3400, L500.2500, L300.8000, L503.6620, L501.2450 #### [facility] [address] [place], [address] Emergency Department Summary on 03-27-2024 Emergency Department Summary [facility] Department [address] [place] [address] Emergency Department Summary 03/27/24 MR#: [id number] Acct: [id number] Name: SANDRA SCHMITZ Rep #: [id number] : 1945 78 From: Parker Nunez DO [...] called to bring her in for evaluation [facility] Medical History (Updated 03/27/24 @ 06:55 [...] 18 Res (more content not included)... Normal [facility] Lipaseon 03-27-2024 Lipase [Catalytic activity/Vol] 51 U/L Normal 13-75 [facility] Comment on above: Result Comment: Alva wiggins note: LIPASE revised reference range effective 22. New Lipase methodology. Expected to produce lower values than the previous assay method. NEW Reference Range: 13 - 75 U/L Performed By: #### L 501.5200, L100.0100, L500.3400, L500.2500, L300.8000, L503.6620, L501.2450 #### [facility] [address] [place], [address] Liver Profileon 03-27-2024 Albumin [Mass/Vol] 3.7 g/dL Normal 3.2-5.0 [facility] Comment on above: Performed By: #### L 501.5200, L100.0100, L500.3400, L500.2500, L300.8000, L503.6620, L501.2450 #### [facility] [address] [place], [address] ALK P 78 U/L Normal 45-117 [facility] Comment on above: Performed By: #### L 501.5200, L100.0100, L500.3400, L500.2500, L300.8000, L503.6620, L501.2450 #### [facility] [address] [place], [address] ALT [Catalytic activity/Vol] 16 U/L Normal 13-56 [facility] Comment on above: Performed By: #### L 501.5200, L100.0100, L500.3400, L500.2500, L300.8000, L503.6620, L501.2450 #### [facility] [address] [place], [address] AST [Catalytic activity/Vol] 18 U/L Normal 15-37 [facility] Comment on above: Performed By: #### L 501.5200, L100.0100, L500.3400, L500.2500, L300.8000, L503.6620, L501.2450 #### [facility] [address] [place], [address] Bilirubin [Mass/Vol] 0.40 mg/dL Normal 0.20-1.00 [facility] Comment on above: Result Comment: For patients on eltrombopag therapy, use of Dimension Castana TBIL is not recommended. Performed By: #### L 501.5200, L100.0100, L500.3400, L500.2500, L300.8000, L503.6620, L501.2450 #### [facility] [address] [place], [address] Bilirubin.direct [Mass/Vol] 0.13 mg/dL Normal 0.00-0.30 [facility] Comment on above: Performed By: #### L 501.5200, L100.0100, L500.3400, L500.2500, L300.8000, L503.6620, L501.2450 #### [facility] [address] [place], [address] Globulin (S) [Mass/Vol] 4.5 g/dL High 2.2-4.2 [facility] Comment on above: Performed By: #### L 501.5200, L100.0100, L500.3400, L500.2500, L300.8000, L503.6620, L501.2450 #### [facility] [address] [place], [address] T PROT 8.2 g/dL Normal 6.4-8.2 [facility] Comment on above: Performed By: #### L 501.5200, L100.0100, L500.3400, L500.2500, L300.8000, L503.6620, L501.2450 #### [facility] [address] [place], [address] M100.678on 03-27-2024 M100.678 Pending SARS-CoV-2 (COVID 19) Negative INFLUENZA A Negative INFLUENZA B Negative RSV PCR Negative Normal [facility] Comment on above: Performed By: #### M 100.678 ####[facility] [address] [place], [address] Magnesiumon 03-27-2024 Magnesium [Mass/Vol] 2.1 mg/dL Normal 1.6-2.6 [facility] Comment on above: Performed By: #### L 501.5200, L100.0100, L500.3400, L500.2500, L300.8000, L503.6620, L501.2450 #### [facility] [address] [place], [address] Urinalysis, Completeon 03-27 EPI,SQUAMOUS 0-5 SEEN Normal 5-10 [facility] Comment on above: Order Comment: CLEAN CATCH Performed By: #### L 400.0001 ####[facility] [address] [place], [address] BACTERIA 0 SEEN Normal None Seen [facility] Comment on above: Order Comment: CLEAN CATCH Performed By: #### L 400.0001 ####[facility] [address] [place], [address] Mucus Ql (Urine sed) 0 SEEN Normal [facility] Comment on above: Order Comment: CLEAN CATCH Performed By: #### L 400.0001 ####[facility] [address] [place], [address] RBC 0 SEEN Normal 0-5 [facility] Comment on above: Order Comment: CLEAN CATCH Performed By: #### L 400.0001 ####[facility] [facility] [address] [place], [address] WBC 0 SEEN Normal 0-5 [facility] Comment on above: Order Comment: CLEAN CATCH Performed By: #### L 400.0001 ####[facility] [address] [place], [address] CNPNon 03-21-2024 [facility]) ----- SANDRA SCHMITZ ([id number]) 1945 [place] [employer]* Date Time Provider [...] right [M19.071] 08/02/2022 Coronary artery disease involving united keetoowah lopez*08/02/2022 Vitamin D deficiency [E55.9] (more content not included)... Normal [facility] Jayna 03-05-2024 TIMN Telephone (FAMPWS) ----- SANDRA SCHMITZ ([id number]) 1945 Praful Farhan Shonna* Date Time Provider [...] right [M19.071] 08/02/2022 Coronary artery disease involving united keetoowah lopez*08/02/2022 Vitamin D deficiency [E55.9] 08/02/2022 Somatic [...] (left bundle (more content not included)... Normal [facility] CNOVon 02-12-2024 CNOV Office Visit (FAMPWS ) ----- SANDRA SCHMITZ ([id number]) 1945 F [place] [employer]* Date Time Provider Department 02/12/24 2:00 PM [facility] During your visit today, we recorded the [...] on chronic systolic CHF (congestive heart failure) ([facility]) 05/03/2020 Aspiration pneumonia ([facility]) 05/30/2020 Chest pain 05/03/2020 Chest pressure 01/23/2013 Chronic diastolic congestive heart failure ([facility]) 02/14/2021 Clostridium difficile diarrhea 09/28/2020 Complete uterovaginal prolapse Cystocele, midline Essential hypertension 06/14/2020 Homozygous Factor V Leiden mutation ([facility]) 05/03/2020 Hypothyroidism IBS (irritable bowel syndrome) 01/23/2013 [...] T3-10ERrSBl L1-2NRrS (more content not included)... Normal [facility] T3Free SerPl-mCncon 02-12-20 24 Free T3 [Mass/Vol] 2.1 pg/mL Low 2.3-4.1 [facility] Comment on above: Order Comment: Speci men Type: BLOOD SPECIMENOrdering Facility: [facility] Address: [address] [place] [address] Performed By: #### 3 051-0, 3024-7, 3016-3 ####[facility] LABCLIA [id number] [facility] [id number] [address] [place] T4 Free SerPl-mCncon 024 Free T4 [Mass/Vol] 1.6 ng/dL Normal 0.9-1.7 [facility] Comment on above: Order Comment: Speci men Type: BLOOD SPECIMENOrdering Facility: [facility] Address: [address] [place] [address] Performed By: #### 3 051-0, 3024-7, 6-3 ####[facility] LABCLIA [id number] [place] [id number] [place] TSH SerPl-aCncon 02-12-2024 TSH Qn 0.695 m[IU]/L Normal 0.270-4.200 [facility] Comment on above: Order Comment: Speci men Type: BLOOD SPECIMENOrdering Facility: [facility] Address: [address] [place] [address] Performed By: #### 3 051-0, 3024-7, 6-3 ####[facility] LABCLIA [id number] [address] [place] CNOVon 02-07-2024 CNOV Office Visit (CARDMM ) ----- SANDRA SCHMITZ ([id number]) 1945 [address] [place]* Date Time Provider Department 02/07/24 2:20 PM ANGEL CATSRO During your visit today, we recorded the following information about you: Pulse Blood pressure Weight 83/minute 132/78 89.2 kg Angel Castro DO 02/07/2024 2:40 PM Signed [facility] Department of Cardiovascular Medicine SECTION OF REGIONAL CARDIOLOGY/[facility] OUTPATIENT VISIT DATE February 07, 2024 OUTPATIENT VISIT TYPE ESTABLISHED PATIENT Name: Sandra Ricardo Nadir : 1945 Date: February 07, 2024 PRIMARY CARE PHYSICIAN: Mandeep Houser [address] [place] [address] REFERRING PHYSICIAN: No referring provider defined for this encounter. CHIEF COMPLAINT: Patient presents with: CARD Follow Up 3 Month: PMH: non-ischemic CM, HTN, Hypothyroidism, LBBB s/p ENERGY AUDITOR-D IMPRESSION / PLAN: Severe nonischemic cardiomyopathy status post ENERGY AUDITOR-D in July 2023. - [facility] 10/2021: mod LAD, D1 prox [...] breath or increasing abdominal girth. - s/p ENERGY AUDITOR-D 07/16/23 at [facility] - Follows with advanced heart failure, - Follows with EP, Dr. Wellington and continue follow-up in the device clinic Left bundle branch block - s/p ENERGY AUDITOR-D 07/16/23 at [facility] - Follows with EP, Dr. Wellington Nonobstructive coronary artery disease - [facility] 10/2021: mod LAD, D1 prox [...] an ejection fraction of 23% status post ENERGY AUDITOR-D in July 2023, hypertension and factor V [...] on chronic systolic CHF (congestive heart failure) ([facility]) 05/03/2020 Aspiration pneumonia ([facility]) 05/30/2020 Chest pain 05/03/2020 Chest pressure 01/23/2013 [...] status: Former (more content not included)... Normal [facility] ECG COMPLETEon 02-04-2024 Atrial Rate 70 BPM [facility] Calculated P [place] 21 degrees [facility] Calculated R [place] -61 degrees [facility] Calculated T [place] 63 degrees [facility] P-R Interval 132 ms [facility] QRS Duration 116 ms [facility] QT Interval 462 ms [facility] QTC Calculation (Bazett) 498 ms [facility] Ventricular Rate 70 BPM [facility] NORMAL SINUS RHYTHM LEFT AXIS DEVIATION INFERIOR MYOCARDIAL INFARCTION , AGE UNDETERMINED ANTEROLATERAL INFARCTION , AGE UNDETERMINED ABNORMAL ECG Confirmed by AUGUSTINE WAN MD ([id number]) on 02/04/2024 10:18:22 AM [facility] NAME : SANDRA SCHMITZ PID : [id number] : 1945 Gender : Female Race : [...] Acquired by : , HEART AND VASCULAR [facility] NT PRO BNPon 01-30-2024 Natriuretic peptide.B prohormone N-Terminal [Mass/Vol] 2145 pg/mL High NINF - 450 pg/mL [facility] Natriuretic peptide.B prohor briana N-Terminal [Mass/Vol]on 01-30-2024 Interpretation and review of laboratory results Abnormal [facility] CNOVon 01-29-2024 CNOV Office Visit (FAMPWS ) ----- SANDRA SCHMITZ ([id number]) 1945 [place]patrick* Date Time Provider Department [...] on chronic systolic CHF (congestive heart failure) ([facility]) 05/03/2020 Aspiration pneumonia ([facility]) 05/30/2020 Chest pain 05/03/2020 Chest pressure 01/23/2013 Chronic diastolic congestive heart failure ([facility]) 02/14/2021 Clostridium difficile diarrhea 09/28/2020 Complete uterovaginal prolapse Cystocele, midline Essential hypertension 06/14/2020 Homozygous Factor V Leiden mutation ([facility]) 05/03/2020 Hypothyroidism IBS (irritable bowel syndrome) 01/23/2013 [...] edema. No (more content not included)... Normal [facility] NT-proBNP Becky-Daniel 01-28 Natriuretic peptide.B prohormone N-Terminal [Mass/Vol] 2145 pg/mL High <450 [facility] Comment on above: Order Comment: Speci men Type: BLOOD SPECIMENOrdering Facility: [facility] Address: [address] [place] [address] Performed By: #### 3 3762-6 ####[facility] LABCLIA [id number] [address] CNOVon 01-15-2024 CNOV Office Visit (CACHFV ) ----- SANDRA SCHMITZ ([id number]) 1945 F Farhan Kilpatrick* Date Time Provider [...] and weight daily. Please notify us via Big Contactshart if your Systolic BP (top number) < [...] heart kidney injury risk Please send a YouGoDo message or call with any questions or concerns: Outpatient Number: [phone] Thank you, Pili Wells MD Advanced Heart Failure and Transplant [employer] [place] [phone] Pili Wells MD 03/07/2024 7:04 PM Signed [facility] SECTION OF HEART FAILURE and CARDIAC TRANSPLANT MEDICINE [facility] OUTPATIENT VISIT DATE January 15, 2024 OUTPATIENT VISIT TYPE Established PRIMARY CARE PHYSICIAN: Mandeep Houser [address] [place] [phone] CHIEF COMPLAINT: Follow Up HISTORY OF PRESENT ILLNESS: Sandra Schmitz is a 78 year old female with a medical history that includes non-ischemic CM, HTN, Hypothyroidism, LBBB s/p ENERGY AUDITOR-D who is referred to me for heart failure management. Sandra Schmitz was initially diagnosed with non-ischemic CM ~ 4 yrs ago and was doing well on losartan and metoprolol. She had progressive sxs of dyspnea on exertion, therefore she was started on entresto and farxiga and her sxs persisted and she was admitted locally in [place] and then transferred to for ENERGY AUDITOR consideration. Interval History: Sandra Schmitz was last [...] LVEF 40%, LVEdd 4.8cm. LBBB: chronic. S/p ENERGY AUDITOR 07/2023 Non-obstructive CAD: stable, ischemic testing recently [...] on chronic systolic CHF (congestive heart failure) ([facility]) 05/30/2020: Aspiration pneumonia ([facility]) 05/03/2020: Chest pain 01/23/2013: Chest pressure 02/14/2021: Chronic diastolic congestive heart failure ([facility]) 09/28/2020: Clostridium difficile diarrhea No date: Complete uterovaginal prolapse No date: Cystocele, midline 06/14/2020: Essential hypertension 05/03/2020: Homozygous Factor V Leiden mutation ([facility]) No date: Hypothyroidism 01/23/2013: IBS (irritable bowel syn (more content not included)... Normal [facility] ULO32ak 01-15-2024 ECG01 Ventricular Rate : 7 0 BPM Atrial Rate : 70 BPM P-R Interval : 132 ms QRS Duration : 116 ms Q-T Interval : 462 ms QTC Calculation(Bazett) : 498 ms Calculated P Orlando : 21 degrees Calculated R Orlando : -61 degrees Calculated T Orlando : 63 degrees NORMAL SINUS RHYTHM LEFT AXIS DEVIATION INFERIOR MYOCARDIAL INFARCTION , AGE UNDETERMINED ANTEROLATERAL INFARCTION , AGE UNDETERMINED ABNORMAL ECG Confirmed by AUGUSTINE WAN MD ([id number]) on 02/04/2024 10:18:22 AM NAME : SANDRA SCHMITZ PID : [id number] : 1945 Gender : Female Race : [...] PILI WELLS Acquired by : Terrie COPE [facility] CNOVon 01-04-2024 CNOV Office Visit (FAMPWS ) ----- SANDRA SCHMITZ ([id number]) 1945 [place] [place]* Date Time Provider Department 01/04/24 4:20 PM [facility] During your visit today, we recorded the [...] on chronic systolic CHF (congestive heart failure) ([facility]) 05/30/2020: Aspiration pneumonia ([facility]) 05/03/2020: Chest pain 01/23/2013: Chest pressure 02/14/2021: Chronic diastolic congestive heart failure ([facility]) 09/28/2020: Clostridium difficile diarrhea No date: Complete uterovaginal prolapse No date: Cystocele, midline 06/14/2020: Essential hypertension 05/03/2020: Homozygous Factor V Leiden mutation ([facility]) No date: Hypothyroidism 01/23/2013: IBS (irritable bowel [...] no c (more content not included)... Normal [facility] CBC W Auto Differential pane l (Bld)on 12-12-2023 Basophils (Bld) [#/Vol] 0.11 10*3/uL High <0.11 [facility] Comment on above: Order Comment: Speci men Type: BLOOD SPECIMENOrdering Facility: [facility] [place] Address: [address] [place] [address] Performed By: #### 5 7021-8, 4536-7 ####[facility] LABCLIA [id number] [place] [address] [place] Basophils/100 WBC (Bld) 1.2 % Normal [facility] Comment on above: Order Comment: Speci men Type: BLOOD SPECIMENOrdering Facility: [facility] [place] Address: [address] [place] [address] Performed By: #### 5 7021-8, 7 ####[facility] LABCLIA [id number] [place] [address] [place] Differential cell count method Nom (Bld) Auto Normal [facility] Comment on above: Order Comment: Speci men Type: BLOOD SPECIMENOrdering Facility: [facility] [place] Address: [address] [place] [address] Performed By: #### 5 7021-8, 7 ####[facility] LABCLIA [id number] [place] [address] [place] Eosinophils (Bld) [#/Vol] 0.20 10*3/uL Normal <0.46 [facility] Comment on above: Order Comment: Speci men Type: BLOOD SPECIMENOrdering Facility: [facility] [place] Address: [address] [place] [address] Performed By: #### 5 7021-8, 7 ####[facility] LABCLIA [id number] [place] [address] [place] Eosinophils/100 WBC (Bld) 2.1 % Normal [facility] Comment on above: Order Comment: Speci men Type: BLOOD SPECIMENOrdering Facility: [facility] [place] Address: [address] [place] [address] Performed By: #### 5 7021-8, 7 ####[facility] LABCLIA [id number] [address] [address] [place] Erythrocyte distribution width (RBC) [Ratio] 14.4 % Normal 11.5-15.0 [facility] Comment on above: Order Comment: Speci men Type: BLOOD SPECIMENOrdering Facility: [facility] [place] Address: [address] [place] [address] Performed By: #### 5 7021-8, 7 ####[facility] LABIA [id number] [place] [address] [place] Hematocrit (Bld) [Volume fraction] 40.5 % Normal 36.0-46.0 [facility] Comment on above: Order Comment: Speci men Type: BLOOD SPECIMENOrdering Facility: [facility] [place] Address: [address] [place] [address] Performed By: #### 5 7021-8, 7 ####[facility] LABIA [id number] [place] [id number] [place] Hemoglobin (Bld) [Mass/Vol] 12.6 g/dL Normal 11.5-15.5 [facility] Comment on above: Order Comment: Speci men Type: BLOOD SPECIMENOrdering Facility: [facility] [place] Address: [address] [place] [address] Performed By: #### 5 7021-8, 7 ####[facility] LABIA [id number] [address] [address] [place] Immature granulocytes (Bld) [#/Vol] 0.05 10*3/uL Normal <0.10 [facility] Comment on above: Order Comment: Speci men Type: BLOOD SPECIMENOrdering Facility: [facility] [place] Address: [address] [place] [address] Performed By: #### 5 7021-8, 4536-7 ####[facility] LABCLIA [id number] [place] [address] [place] Immature granulocytes/100 WBC (Bld) 0.5 % Normal [facility] Comment on above: Order Comment: Speci men Type: BLOOD SPECIMENOrdering Facility: [facility] [place] Address: [address] [place] [address] Performed By: #### 5 7021-8, 7 ####[facility] LABCLIA [id number] [place] [address] [place] Lymphocytes (Bld) [#/Vol] 3.55 10*3/uL Normal 1.00-4.00 [facility] Comment on above: Order Comment: Speci men Type: BLOOD SPECIMENOrdering Facility: [facility] [place] Address: [address] [place] [address] Performed By: #### 5 7021-8, 7 ####[facility] LABCLIA [id number] [place] [address] [place] Lymphocytes/100 WBC (Bld) 37.6 % Normal [facility] Comment on above: Order Comment: Speci men Type: BLOOD SPECIMENOrdering Facility: [facility] [place] Address: [address] [place] [address] Performed By: #### 5 7021-8, 7 ####[facility] LABCLIA [id number] [place] [address] [place] MCH (RBC) [Entitic mass] 28.8 pg Normal 26.0-34.0 [facility] Comment on above: Order Comment: Speci men Type: BLOOD SPECIMENOrdering Facility: [facility] [place] Address: [address] [place] [address] Performed By: #### 5 7021-8, 4536-7 ####[facility] LABCLIA [id number] [place] [id number] [place] MCHC (RBC) [Mass/Vol] 31.1 g/dL Normal 30.5-36.0 [facility] Comment on above: Order Comment: Speci men Type: BLOOD SPECIMENOrdering Facility: [facility] Address: [address] [place] [address] Performed By: #### 5 7021-8, 7-7 ####[facility] LABCLIA [id number] [place] [address] [place] MCV (RBC) [Entitic vol] 92.5 fL Normal 80.0-100.0 [facility] Comment on above: Order Comment: Speci men Type: BLOOD SPECIMENOrdering Facility: [facility] Address: [address] [place] [address] Performed By: #### 5 7021-8, 4537-7 ####[facility] LABCLIA [id number] [place] [address] [place] Monocytes (Bld) [#/Vol] 1.02 10*3/uL High <0.87 [facility] Comment on above: Order Comment: Speci men Type: BLOOD SPECIMENOrdering Facility: [facility] Address: [address] [place] [address] Performed By: #### 5 7021-8, 4536-7 ####[facility] LABCLIA [id number] [place] [address] [place] Monocytes/100 WBC (Bld) 10.8 % Normal [facility] Comment on above: Order Comment: Speci men Type: BLOOD SPECIMENOrdering Facility: [facility] [place] Address: [address] [place] [address] Performed By: #### 5 7021-8, 4537-7 ####[facility] LABCLIA [id number] [place] [id number] [place] Neutrophils (Bld) [#/Vol] 4.51 10*3/uL Normal 1.45-7.50 [facility] Comment on above: Order Comment: Speci men Type: BLOOD SPECIMENOrdering Facility: [facility] [place] Address: [address] [place] [address] Performed By: #### 5 7021-8, 4537-7 ####[facility] LABCLIA [id number] [place] [address] [place] Neutrophils/100 WBC (Bld) 47.8 % Normal [facility] Comment on above: Order Comment: Speci men Type: BLOOD SPECIMENOrdering Facility: [facility] [place] Address: [address] [place] [address] Performed By: #### 5 7021-8, 453-7 ####[facility] LABCLIA [id number] [place] [address] [place] Nucleated RBC (Bld) [#/Vol] 10*3/uL Normal <0.01 [facility] Comment on above: Order Comment: Speci men Type: BLOOD SPECIMENOrdering Facility: [facility] [place] Address: [address] [place] [address] Performed By: #### 5 7021-8, 4537-7 ####[facility] LABCLIA [id number] [place] [address] [place] Nucleated RBC/100 WBC (Bld) [Ratio] 0.0 /100 WBC Normal [facility] Comment on above: Order Comment: Speci men Type: BLOOD SPECIMENOrdering Facility: [facility] [place] Address: [address] [place] [address] Performed By: #### 5 7021-8, 4537-7 ####[facility] LABCLIA [id number] [place] [address] [place] Platelet mean volume (Bld) [Entitic vol] 10.5 fL Normal 9.0-12.7 [facility] Comment on above: Order Comment: Speci men Type: BLOOD SPECIMENOrdering Facility: [facility] [place] Address: [address] [place] [address] Performed By: #### 5 7021-8, 4537-7 ####[facility] LABCLIA [id number] [place] [address] [place] Platelets (Bld) [#/Vol] 328 10*3/uL Normal 150-400 [facility] Comment on above: Order Comment: Specjeffy jesus Type: BLOOD SPECIMENOrdering Facility: [facility] [place] Address: [address] [place] [address] Performed By: #### 5 7021-8, 4537-7 ####[facility] LABCLIA [id number] [place] [address] [place] RBC (Bld) [#/Vol] 4.38 10*6/uL Normal 3.90-5.20 [facility] Comment on above: Order Comment: Lenard jesus Type: BLOOD SPECIMENOrdering Facility: [facility] [place] Address: [address] [place] [address] Performed By: #### 5 7021-8, 4537-7 ####[facility] LABIA [id number] [place] [address] [place] WBC (Bld) [#/Vol] 9.44 10*3/uL Normal 3.70-11.00 [facility] Comment on above: Order Comment: Lenard jesus Type: BLOOD SPECIMENOrdering Facility: [facility] [place] Address: [address] [place] [address] Performed By: #### 5 7021-8, 4537-7 ####[facility] LABIA [id number] [place] [address] [place] CELIAC SCREENon 12-12-2023 GLIAD DEAMIDATED IGA QUAL Negative Normal Negative, Test not Indicated [facility] Comment on above: Order Comment: Lenard jesus Type: BLOOD SPECIMENOrdering Facility: [facility] [place] Address: [address] [place] [address] Result Comment: This is used as an aid in diagnosis of celiac disease. Clinical correlation is required. The following results were obtained with an [employer]ova QUANTA Lite Gliadin IgA BLAYNE Gliadin. Gliadin IgA values obtained with different manufacturers' assay methods may not be used interchangeably. The magnitude of the reported IgA levels cannot be correlated to an endpoint titer. Performed By: #### L [id number] ####[facility] LABCLIA [id number] [address] Gliadin peptide IgA Qn (S) 4 Units Normal <20 [facility] Comment on above: Order Comment: Speci men Type: BLOOD SPECIMENOrdering Facility: [facility] [place] Address: [address] [place] [address] Performed By: #### L [id number] ####[facility] LABCLIA [id number] [address] [place] INTERPRETATION No serological evide nce of celiac disease, however, if celiac disease is clinically suspected and patient is not on gluten-free diet, histological diagnosis may be considered. HLA testing may help with risk assessment. Normal [facility] Comment on above: Order Comment: Lenard jesus Type: BLOOD SPECIMENOrdering Facility: [facility] [place] Address: [address] [place] [address] Performed By: #### L [id number] ####[facility] LABCLIA [id number] [address] TRANSGLUTAMINASE IGA ABS INTERPRETATION Negative Normal Negative [facility] Comment on above: Order Comment: Lenard jesus Type: BLOOD SPECIMENOrdering Facility: [facility] [place] Address: [address] [place] [address] Result Comment: The following results were obtained with [employer]ova QUANTA Lite R h-tTG IgA BLAYNE.???R h-tTG IgA values obtained with different manufacturers' assay methods may not be used interchangeably. The magnitude of the reported IgA levels cannot be corelated to an endpoint???concentration. This is used as an aid in diagnosis of celiac disease. Clinical correlation is required. Performed By: #### L [id number] ####[facility] LABCLIA [id number] [place] [address] [place] tTG IgA Qn (S) <2 Normal <4 [facility] Comment on above: Order Comment: Speci men Type: BLOOD SPECIMENOrdering Facility: [facility] [place] Address: [address] [place] [address] Performed By: #### L [id number] ####[facility] LABCLIA [id number] [address] [place] CNOVon 12-12-2023 CNOV Office Visit (FAMPWS ) ----- SANDRA SCHMITZ ([id number]) 1945 [place]* Date Time Provider Department 12/12/23 3:40 PM [facility] During your visit today, we recorded the [...] on chronic systolic CHF (congestive heart failure) ([facility]) 05/30/2020: Aspiration pneumonia ([facility]) 05/03/2020: Chest pain 01/23/2013: Chest pressure 02/14/2021: Chronic diastolic congestive heart failure ([facility]) 09/28/2020: Clostridium difficile diarrhea No date: Complete uterovaginal prolapse No date: Cystocele, midline 06/14/2020: Essential hypertension 05/03/2020: Homozygous Factor V Leiden mutation ([facility]) No date: Hypothyroidism 01/23/2013: IBS (irritable bowel [...] fullness ri (more content not included)... Normal [facility] CRP SerPl-ncon 12-12-2023 CRP [Mass/Vol] 1.2 mg/dL High <0.9 [facility] Comment on above: Order Comment: Speci men Type: BLOOD SPECIMENOrdering Facility: [facility] [place] Address: [address] [place], [place] [id number] Performed By: #### 2 4322-12, 1987-09 ####[facility] LABCLIA [id number] [address] [address] [place] Comprehensive metabolic 2000 panelon 12-12-2023 Albumin [Mass/Vol] 4.0 g/dL Normal 3.9-4.9 [facility] Comment on above: Order Comment: Speci men Type: BLOOD SPECIMENOrdering Facility: [facility] [place] Address: [address] [place] [address] Performed By: #### 2 4322-12, 1987-09 ####[facility] LABCLIA [id number] [place] [id number] [place] ALP [Catalytic activity/Vol] 68 U/L Normal 34-123 [facility] Comment on above: Order Comment: Speci men Type: BLOOD SPECIMENOrdering Facility: [facility] [place] Address: [address] [place] [address] Performed By: #### 2 4322-12, 1987-09 ####[facility] LABCLIA [id number] [place] [id number] [place] ALT [Catalytic activity/Vol] 11 U/L Normal 7-38 [facility] Comment on above: Order Comment: Speci men Type: BLOOD SPECIMENOrdering Facility: [facility] Address: [address] [place] [address] Performed By: #### 2 4322-12, 1987-09 ####[facility] LABCLIA [id number] [address] [address] [place] Anion gap [Moles/Vol] 12 mmol/L Normal 8-15 [facility] Comment on above: Order Comment: Speci men Type: BLOOD SPECIMENOrdering Facility: [facility] [place] Address: [address] [place] [address] Performed By: #### 2 4322-12, 1987-09 ####[facility] LABCLIA [id number] [place] [id number] [place] AST [Catalytic activity/Vol] 18 U/L Normal 13-35 [facility] Comment on above: Order Comment: Speci men Type: BLOOD SPECIMENOrdering Facility: [facility] Address: [address] [place] [address] Performed By: #### 2 4322-12, 1987-09 ####[facility] LABCLIA [id number] [place] [address] [place] Bilirubin [Mass/Vol] 0.3 mg/dL Normal 0.2-1.3 [facility] Comment on above: Order Comment: Speci men Type: BLOOD SPECIMENOrdering Facility: [facility] Address: [address] [place] [address] Performed By: #### 2 4322-12, 1987-09 ####[facility] LABCLIA [id number] [place] [address] [place] Calcium [Mass/Vol] 9.4 mg/dL Normal 8.5-10.2 [facility] Comment on above: Order Comment: Speci men Type: BLOOD SPECIMENOrdering Facility: [facility] Address: [address] [place] [address] Performed By: #### 2 4322-12, 1987-09 ####[facility] LABCLIA [id number] [place] [address] [place] Chloride [Moles/Vol] 103 mmol/L Normal 98-107 [facility] Comment on above: Order Comment: Speci men Type: BLOOD SPECIMENOrdering Facility: [facility] [place] Address: [address] [place] [address] Performed By: #### 2 4322-12, 1987-09 ####[facility] LABCLIA [id number] [place] [id number] [place] CO2 [Moles/Vol] 26 mmol/L Normal 22-30 [facility] Comment on above: Order Comment: Speci men Type: BLOOD SPECIMENOrdering Facility: [facility] ruiz Address: [address] [place] [address] Performed By: #### 2 4322-12, 1987-09 ####[facility] LABCLIA [id number] [address] [address] [place] Creatinine [Mass/Vol] 0.96 mg/dL Normal 0.58-0.96 [facility] Comment on above: Order Comment: Speci men Type: BLOOD SPECIMENOrdering Facility: [facility] Address: [address] [place] [address] Performed By: #### 2 4322-12, 1987-09 ####[facility] LABCLIA [id number] [place] [address] [place] Creatinine and Glomerular filtration rate.predicted panel (S/P/Bld) 61 mL/min/1.73m??? Normal >=60 [facility] Comment on above: Order Comment: Specjeffy jesus Type: BLOOD SPECIMENOrdering Facility: [facility] Address: [address] [place] [address] Result Comment: Aaron mated Glomerular Filtration Rate [...] GFR. Performed By: #### 2 4322-12, 1987-09 ####[facility] LABCLIA [id number] [address] [address] [place] Glucose [Mass/Vol] 82 mg/dL Normal 74-99 [facility] Comment on above: Order Comment: Speci edin Type: BLOOD SPECIMENOrdering Facility: [facility] Address: [address] [place] [address] Result Comment: The [place] Diabetes Association (ADA) provides guidance for cutoff [...] Standards of Medical Care in Diabetes 2016, [place] [employer]. Diabetes Care. 2016.39(Suppl 1). Performed By: #### 2 43207-19, 1987-09 ####[facility] LABCLIA [id number] [place] [address] [place] Potassium [Moles/Vol] 4.0 mmol/L Normal 3.7-5.1 [facility] Comment on above: Order Comment: Lenard jesus Type: BLOOD SPECIMENOrdering Facility: [facility] [place] Address: [address] [place] [address] Performed By: #### 2 4322-12, 1987-09 ####[facility] LABIA [id number] [place] [address] [place] Protein [Mass/Vol] 7.2 g/dL Normal 6.3-8.0 [facility] Comment on above: Order Comment: Lenard jesus Type: BLOOD SPECIMENOrdering Facility: [facility] [place] Address: [address] [place] [address] Performed By: #### 2 4322-12, 1987-09 ####[facility] LABCLIA [id number] [place] [id number] [place] Sodium [Moles/Vol] 141 mmol/L Normal 136-144 [facility] Comment on above: Order Comment: Lenard jesus Type: BLOOD SPECIMENOrdering Facility: [facility] [place] Address: [address] [place] [address] Performed By: #### 2 8, 1987-09 ####[facility] LABCLIA [id number] [place] [address] [place] Urea nitrogen [Mass/Vol] 22 mg/dL High 7-21 [facility] Comment on above: Order Comment: Speci edin Type: BLOOD SPECIMENOrdering Facility: [facility] [place] Address: [address] [place] [address] Performed By: #### 2 4323-8, 1987-09 ####[facility] LABCLIA [id number] [place] [id number] [place] ESR Westergren method (Bld) [Velocity]on 12-12-2023 ESR (Bld) [Velocity] 32 mm/h High 0-20 [facility] Comment on above: Order Comment: Ernestinei edin Type: BLOOD SPECIMENOrdering Facility: [facility] [place] Address: [address] [place] [address] Performed By: #### 5 7021-8, 4537-7 ####[facility] LABIA [id number] [address] [place] IgA SerPl-mCncon 12-12-2023 IgA [Mass/Vol] 177 mg/dL Normal 70-400 [facility] Comment on above: Order Comment: Lenard jesus Type: BLOOD SPECIMENOrdering Facility: [facility] [place] Address: [address] [place] [address] Performed By: #### 2 458-8 ####[facility] LABCLIA [id number] [place] [id number] [place] Jayna 12-06-2023 TIMN Telephone (EDUARDO) ----- SANDRA SCHMITZ ([id number]) 1945 [place] Date Time Provider Department 12/06/23 PILI WELLS During your visit today, we recorded the following information about you: Pili Wells MD 12/06/2023 6:51 PM Signed Echo results reviewed. LVEF remains stable, mitral regurgitation is improved. At this time we will continue with medications. No changes Helen Ramachandran RN 12/10/2023 11:41 AM Signed Pili Wells MD Sc, Please call patient with results. She doesn't have mychart for me to send message. Thanks, Helen Ramachandran RN 12/10/2023 11:41 AM Signed I spoke with pt about information below from Dr. Wlels. Pt wants Dr. Wells to know that [...] right [M19.071] 08/02/2022 Coronary artery disease involving united keetoowah lopez*08/02/2022 Vitamin D deficiency [E55.9] 08/02/2022 Somatic dysfunction of head region [M99.00] 08/10/2022 Chronic neck pain [M54.2, G89.29] 08/24/2022 Chronic bronchitis (HCC) [J42] 09/11/2022 SVT (supraventricular tachycardia) (HCC) (more content not included)... Normal [facility] ECHOon 12-05-2023 CONCLUSIONS: - Exam indication: [...] * * * Final * * * [facility] Echocardiography Report: Transthoracic Echo [facility] Date of service: 12/05/2023 1:16:13 PM Ordering physician: PILI WELLS Indication: Heart failure Technologist: Maritza Ahn [facility] Interpreting physician: Jim Gonzalez DO PATIENT: Name: MRS. SANDRA SCHMITZ : 1945 Age: 78 years Gender: F History of hypertension, dyslipidemia, heart failure with hospitalization, cardiomyopathy, coronary artery disease and arrhythmia. Previous cardiovascular interventions: ENERGY AUDITOR-D (07/2023) Primary rhythm: V. Paced. Height: 160.02 [...] interventricular septum as detected by Doppler. KO [facility] Jayna 12-03-2023 CNPN Telephone (FAMPWS) ----- SANDRA SCHMITZ ([id number]) 1945 [place]* Date Time Provider Department 12/03/23 [facility] During your visit today, we recorded the [...] states that order/letter should be faxed to [facility] Cardiac Rehab [phone]. Please review and advise, CARO Soria Jordan L, DO 12/05/2023 7:20 AM Signed Please create letter as below to hold cardiac rehab due to her back pain for 2-3 weeks DO Juana Gamez Kim E, LPN 12/05/2023 11:08 AM Signed letter completed and signed and faxed to [facility] cardiac rehab. Lillian Arias LPN Allergies As [...] 07/18/2022 F (more content not included)... [facility]N [facility] (PODCCP) ----- SANDRA SCHMITZ ([id number]) 1945 [place] Date Time Provider Department 11/28/23 MANDEEP HOUSER PODCCJohn During your visit today, we recorded the following information about you: Concetta Dahl 11/28/2023 11:09 AM Signed Transitional Care Management (TCM) [facility] Monitoring Program Provider Action / FYI: N/A SUMMARY: Outreach type: FOLLOW-UP OUTREACH Discharge Network Status: In-Network Discharge Source of Patient: [facility] TCM Discharge Report Patient discharged from [place] on 11/18/23. Admitted for Pre-syncope. Contact made with patient: Yes, for Follow-up Outreach Hi, my name is Concetta Dahl. I am calling from the [facility] on behalf of your Primary Care Provider, [...] Center phone number to speak with a spares scheduler who can assist you with that appointment. [...] gout involv (more content not included)... Normal [facility] Jayna 11-23-2023 TIMN Telephone (PODCCP) ----- SANDRA SCHMITZ ([id number]) 1945 [place]* Date Time Provider Department 11/23/23 ROJAS PRAKASH PODCCP During your visit today, we recorded the following information about you: Rojas Prakash RN 11/23/2023 1:30 PM Signed Transitional Care Management (TCM) [facility] Monitoring Program Provider Action / FYI: na SUMMARY: Outreach type: INITIAL OUTREACH Discharge Network Status: In-Network Discharge Source of Patient: [facility] TCM Discharge Report Patient discharged from [place] on 11.18.23. Admitted for Pre-syncope . Contact [...] right [M19.071] 08/02/2022 Coronary artery disease involving united keetoowah lopez*08/02/2022 Vitamin D deficiency [E55.9] 08/02/2022 Somatic dysfunction of head region [M99.00] 08/10/2022 Chronic neck pain [M54.2, G89.29] 08/24/2022 Chronic bronchitis (HCC) [J42] 09/11/2022 SVT (supraventricular tachycardia) (HCC) [I47.1*09/11/2022 Combined systol (more content not included)... Normal [facility] CBC panel Auto (Bld)on 11-17 Erythrocyte distribution width (RBC) [Ratio] 14.1 % Normal 11.5-15.0 [facility] Comment on above: Order Comment: Speci men Type: BLOOD SPECIMENOrdering Facility: [facility] Address: [address] [place] [address] [place] [address] Performed By: #### 5 6525-2 ####KO LABORATORYCLIA [id number] [address] Hematocrit (Bld) [Volume fraction] 39.4 % Normal 36.0-46.0 [facility] Comment on above: Order Comment: Speci men Type: BLOOD SPECIMENOrdering Facility: [facility] Address: [address] [place] [address] Performed By: #### 5 8410-2 ####KO LABORATORYCLIA [id number] [address] Hemoglobin (Bld) [Mass/Vol] 12.5 g/dL Normal 11.5-15.5 [facility] Comment on above: Order Comment: Speci men Type: BLOOD SPECIMENOrdering Facility: [facility] Address: [address] [place] [address] Performed By: #### 5 8410-2 ####KO LABORATORYCLIA [id number] [address] MCH (RBC) [Entitic mass] 28.9 pg Normal 26.0-34.0 [facility] Comment on above: Order Comment: Speci men Type: BLOOD SPECIMENOrdering Facility: [facility] Address: [address] [place] [address] Performed By: #### 5 8410-2 ####KO LABORATORYCLIA [id number] [address] MCHC (RBC) [Mass/Vol] 31.7 g/dL Normal 30.5-36.0 [facility] Comment on above: Order Comment: Speci men Type: BLOOD SPECIMENOrdering Facility: [facility] Address: [address] [place] [address] Performed By: #### 5 8410-2 ####KO LABORATORYCLIA [id number] [address] MCV (RBC) [Entitic vol] 91.2 fL Normal 80.0-100.0 [facility] Comment on above: Order Comment: Speci men Type: BLOOD SPECIMENOrdering Facility: [facility] Address: [address] [place] [address] Performed By: #### 5 8410-2 ####KO LABORATORYCLIA [id number] [place] [address] [place] Nucleated RBC (Bld) [#/Vol] 10*3/uL Normal <0.01 [facility] Comment on above: Order Comment: Speci men Type: BLOOD SPECIMENOrdering Facility: [facility] Address: [address] [place] [address] Performed By: #### 5 8410-2 ####KO LABORATORYCLIA [id number] [place] [address] [place] Platelet mean volume (Bld) [Entitic vol] 10.1 fL Normal 9.0-12.7 [facility] Comment on above: Order Comment: Speci men Type: BLOOD SPECIMENOrdering Facility: [facility] Address: [address] [place] [address] Performed By: #### 5 8410-2 ####KO LABORATORYCLIA [id number] [place] [address] [place] Platelets (Bld) [#/Vol] 345 10*3/uL Normal 150-400 [facility] Comment on above: Order Comment: Speci men Type: BLOOD SPECIMENOrdering Facility: [facility] Address: [address] [place] [address] Performed By: #### 5 8410-2 ####KO LABORATORYCLIA [id number] [place] [address] [place] RBC (Bld) [#/Vol] 4.32 10*6/uL Normal 3.90-5.20 [facility] Comment on above: Order Comment: Speci men Type: BLOOD SPECIMENOrdering Facility: [facility] Address: [address] [place] [address] Performed By: #### 5 8410-2 ####KO LABORATORYCLIA [id number] [place] [address] [place] WBC (Bld) [#/Vol] 11.76 10*3/uL High 3.70-11.00 [facility] Comment on above: Order Comment: Speci men Type: BLOOD SPECIMENOrdering Facility: [facility] Address: [address] [place] [address] Performed By: #### 5 8410-2 ####[facility] LABORATORYCLIA [id number] [place] [address] [place] CNCOon 11-18-2023 CNCO Letter Text Normal [facility] CNDSon 11-18-2023 CNDS HNO ID: [id number] Author: REMINGTON CAI MD Service: Hospital Medicine [...] Provider: Remington Cai MD Primary Service: , [facility] Consulting: Bentley Nolasco MD MY CONDITION AT [...] call for appointment?: Scheduled Mandeep Houser, [address] [place] [address] PCP Requested Referral Follow-Up Appointment When: In 2 weeks Bentley Nolasco MD [phone] [facility] [address] [facility] [address] PCP Requested Referral Follow-Up Appointment When: In 2 weeks Angel Castro DO [phone] [address] [place] [address] PCP Requested Referral Additional Provider to Provider [...] [phone] (more content not included)... Normal [facility] CONSULTon 11-18-2023 CONSULT HNO ID: [id number] Author: BENTLEY NOLASCO MD Service: Gastroenterology Author [...] medical history significant for NICM/systolic CHF s/p ENERGY AUDITOR-D, IBS, Factor V Leiden, HTN, HPL, hypothyroidism who presented to ED on 11/15/23 with episode of pre-syncope, facial tingling. Labs with MAYCOL, leukocytosis. Hilliard to be vasovagal episode. A GI evaluation [...] on chronic systolic CHF (congestive heart failure) ([facility]) 05/03/2020 Aspiration pneumonia ([facility]) 05/30/2020 Chest pain 05/03/2020 Chest pressure 01/23/2013 Chronic diastolic congestive heart failure ([facility]) 02/14/2021 Clostridium difficile diarrhea 09/28/2020 Complete uterovaginal prolapse Cystocele, midline Essential hypertension 06/14/2020 Homozygous Factor V Leiden mutation ([facility]) 05/03/2020 Hypothyroidism IBS (irritable bowel syndrome) 01/23/2013 [...] once daily., (more content not included)... Normal [facility] CRP SerPl-mCncon 11-18-2023 CRP [Mass/Vol] 1.2 mg/dL High <0.9 [facility] Comment on above: Order Comment: Speci men Type: BLOOD SPECIMENOrdering Facility: [facility] Address: [address] [place] [address] Performed By: #### 1 9123-9, 3016-3, 97786-6, 1987-09 ####KO LABORATORYCLIA [id number] [place] [address] [place] Comprehensive metabolic 2000 panelon 11-18-2023 Albumin [Mass/Vol] 3.8 g/dL Low 3.9-4.9 [facility] Comment on above: Order Comment: Speci men Type: BLOOD SPECIMENOrdering Facility: [facility] Address: [address] [place] [address] Performed By: #### 1 9123-9, 3015-3, , 1987-09 ####[facility] LABORATORYCLIA [id number] [place] [address] [place] ALP [Catalytic activity/Vol] 63 U/L Normal 34-123 [facility] Comment on above: Order Comment: Speci men Type: BLOOD SPECIMENOrdering Facility: [facility] Address: [address] [place] [address] Performed By: #### 1 9123-9, 3, , 1987-09 ####[facility] LABORATORYCLIA [id number] [place] [address] [place] ALT [Catalytic activity/Vol] 14 U/L Normal 7-38 [facility] Comment on above: Order Comment: Speci men Type: BLOOD SPECIMENOrdering Facility: [facility] Address: [address] [place] [address] Performed By: #### 1 9123-9, 3, , 1987-09 ####[facility] LABORATORYCLIA [id number] [place] [id number] [place] Anion gap [Moles/Vol] 7 mmol/L Low 8-15 [facility] Comment on above: Order Comment: Speci men Type: BLOOD SPECIMENOrdering Facility: [facility] Address: [address] [place] [address] Performed By: #### 1 9123-9, 3, , 1987-09 ####KO LABORATORYCLIA [id number] [place] [address] [place] AST [Catalytic activity/Vol] 15 U/L Normal 13-35 [facility] Comment on above: Order Comment: Speci men Type: BLOOD SPECIMENOrdering Facility: [facility] Address: [address] [place] [place] [address] Performed By: #### 1 9123-9, 3, , 1987-09 ####KO LABORATORYCLIA [id number] [place] [address] [place] Bilirubin [Mass/Vol] 0.5 mg/dL Normal 0.2-1.3 [facility] Comment on above: Order Comment: Speci men Type: BLOOD SPECIMENOrdering Facility: [facility] Address: [facility] [place] [address] Performed By: #### 1 9123-9, 3015-07, , 1987-09 ####[facility] LABORATORYCLIA [id number] [place] [address] [place] Calcium [Mass/Vol] 9.1 mg/dL Normal 8.5-10.2 [facility] Comment on above: Order Comment: Speci men Type: BLOOD SPECIMENOrdering Facility: [facility] Address: [facility] [place] [place] [id number] Performed By: #### 1 9123-9, 3015-07, , 1987-09 ####[facility] LABORATORYCLIA [id number] [place] [address] [place] Chloride [Moles/Vol] 104 mmol/L Normal 98-107 [facility] Comment on above: Order Comment: Speci men Type: BLOOD SPECIMENOrdering Facility: [facility] Address: [address] [id number] Performed By: #### 1 9123-9, 3, , 1987-09 ####KO LABORATORYCLIA [id number] [place] [address] [place] CO2 [Moles/Vol] 29 mmol/L Normal 22-30 [facility] Comment on above: Order Comment: Speci men Type: BLOOD SPECIMENOrdering Facility: [facility] Address: [facility] [place] [address] Performed By: #### 1 9123-9, 6-3, , 1987-09 ####[facility] LABORATORYCLIA [id number] [place] [address] [place] [facility] Creatinine [Mass/Vol] 0.96 mg/dL Normal 0.58-0.96 [facility] Comment on above: Order Comment: Lenard jesus Type: BLOOD SPECIMENOrdering Facility: [facility] Address: [address] [place] [address] Performed By: #### 1 9123-9, 3015-3, , 1987-09 ####[facility] LABORATORYCLIA [id number] [place] [id number] [facility] Creatinine and Glomerular filtration rate.predicted panel (S/P/Bld) 61 mL/min/1.73m??? Normal >=60 [facility] Comment on above: Order Comment: [facility] Type: BLOOD SPECIMENOrdering Facility: [facility] Address: [address] [place] [address] Result Comment: Aaron mated Glomerular Filtration Rate [...] By: #### 1 9123-9, 3015-3, , 1987-09 ####[facility] LABORATORYCLIA [id number] [place] [id number] [place] [facility] Glucose [Mass/Vol] 81 mg/dL Normal 74-99 [facility] Comment on above: Order Comment: [facility] Type: BLOOD SPECIMENOrdering Facility: [facility] Address: [address] [place] [address] Result Comment: The [place] Diabetes Association (ADA) provides guidance for cutoff [...] Standards of Medical Care in Diabetes 2016, [place] [employer]. Diabetes Care. 2016.39(Suppl 1). Performed By: #### 1 9123-9, 3, , 1987-09 ####KO LABORATORYCLIA [id number] [place] [address] [place] Potassium [Moles/Vol] 4.1 mmol/L Normal 3.7-5.1 [facility] Comment on above: Order Comment: Lenard jesus Type: BLOOD SPECIMENOrdering Facility: [facility] Address: [address] [place] [address] Performed By: #### 1 91239, 3015-07, , 1987-09 ####KO LABORATORYCLIA [id number] [place] [address] [place] Protein [Mass/Vol] 6.4 g/dL Normal 6.3-8.0 [facility] Comment on above: Order Comment: Lenard jesus Type: BLOOD SPECIMENOrdering Facility: [facility] Address: [address] [place] [address] Performed By: #### 1 9123-9, 3015-07, , 1987-09 ####KO LABORATORYCLIA [id number] [place] [id number] [place] Sodium [Moles/Vol] 140 mmol/L Normal 136-144 [facility] Comment on above: Order Comment: Lenard jesus Type: BLOOD SPECIMENOrdering Facility: [facility] Address: [address] [place] [address] Performed By: #### 1 9123-9, 3015-07, , 1987-09 ####KO LABORATORYCLIA [id number] [place] [address] [place] Urea nitrogen [Mass/Vol] 30 mg/dL High 7-21 [facility] Comment on above: Order Comment: Speci men Type: BLOOD SPECIMENOrdering Facility: [facility] Address: [address] [place] [address] [place] [id number] Performed By: #### 1 9123-9, 3, , 1987-09 ####KO LABORATORYCLIA [id number] [place] [address] [place] Magnesium SerPl-mCncon 11-17 Magnesium [Mass/Vol] 1.9 mg/dL Normal 1.7-2.3 [facility] Comment on above: Order Comment: Speci men Type: BLOOD SPECIMENOrdering Facility: [facility] Address: [address] [place] [address] Performed By: #### 1 9123-9, 3015-07, , 1987-09 ####[facility] LABORATORYCLIA [id number] [place] [address] [place] TSH SerPl-aCncon 11-18-2023 TSH Qn 3.520 m[IU]/L Normal 0.270-4.200 [facility] Comment on above: Order Comment: Speci men Type: BLOOD SPECIMENOrdering Facility: [facility] Address: [address] [place] [address] [place] [address] Performed By: #### 1 9123-9, 3015-07, , 1987-09 ####KO LABORATORYCLIA [id number] [place] [address] [place] CBC panel Auto (Bld)on 11-16 Erythrocyte distribution width (RBC) [Ratio] 14.2 % Normal 11.5-15.0 [facility] Comment on above: Order Comment: Speci men Type: BLOOD SPECIMENOrdering Facility: [facility] Address: [address] [place] [address] Performed By: #### 5 8410-2 ####[facility] LABORATORYCLIA [id number] [address] [place] Hematocrit (Bld) [Volume fraction] 36.8 % Normal 36.0-46.0 [facility] Comment on above: Order Comment: Speci men Type: BLOOD SPECIMENOrdering Facility: [facility] Address: [address] [place] [address] Performed By: #### 5 8410-2 ####KO LABORATORYCLIA [id number] [address] Hemoglobin (Bld) [Mass/Vol] 11.6 g/dL Normal 11.5-15.5 [facility] Comment on above: Order Comment: Speci men Type: BLOOD SPECIMENOrdering Facility: [facility] Address: [address] [place] [address] Performed By: #### 5 8410-2 ####KO LABORATORYCLIA [id number] [address] MCH (RBC) [Entitic mass] 29.1 pg Normal 26.0-34.0 [facility] Comment on above: Order Comment: Speci men Type: BLOOD SPECIMENOrdering Facility: [facility] Address: [address] [place] [address] Performed By: #### 5 8410-2 ####KO LABORATORYCLIA [id number] [address] MCHC (RBC) [Mass/Vol] 31.5 g/dL Normal 30.5-36.0 [facility] Comment on above: Order Comment: Speci men Type: BLOOD SPECIMENOrdering Facility: [facility] Address: [address] [place] [address] Performed By: #### 5 8410-2 ####KO LABORATORYCLIA [id number] [address] MCV (RBC) [Entitic vol] 92.2 fL Normal 80.0-100.0 [facility] Comment on above: Order Comment: Speci men Type: BLOOD SPECIMENOrdering Facility: [facility] Address: [address] [place] [address] Performed By: #### 5 8410-2 ####KO LABORATORYCLIA [id number] [address] Nucleated RBC (Bld) [#/Vol] 10*3/uL Normal <0.01 [facility] Comment on above: Order Comment: Speci men Type: BLOOD SPECIMENOrdering Facility: [facility] Address: [address] [place] [address] Performed By: #### 5 8410-2 ####KO LABORATORYCLIA [id number] [place] [address] [place] Platelet mean volume (Bld) [Entitic vol] 9.8 fL Normal 9.0-12.7 [facility] Comment on above: Order Comment: Speci men Type: BLOOD SPECIMENOrdering Facility: [facility] Address: [address] [place] [address] Performed By: #### 5 8410-2 ####KO LABORATORYCLIA [id number] [place] [address] [place] Platelets (Bld) [#/Vol] 321 10*3/uL Normal 150-400 [facility] Comment on above: Order Comment: Speci men Type: BLOOD SPECIMENOrdering Facility: [facility] Address: [address] [place] [address] Performed By: #### 5 8410-2 ####KO LABORATORYCLIA [id number] [place] [address] [place] RBC (Bld) [#/Vol] 3.99 10*6/uL Normal 3.90-5.20 [facility] Comment on above: Order Comment: Speci men Type: BLOOD SPECIMENOrdering Facility: [facility] Address: [address] [place] [address] Performed By: #### 5 8410-2 ####KO LABORATORYCLIA [id number] [place] [address] [place] WBC (Bld) [#/Vol] 9.28 10*3/uL Normal 3.70-11.00 [facility] Comment on above: Order Comment: Speci men Type: BLOOD SPECIMENOrdering Facility: [facility] Address: [address] [place] [address] Performed By: #### 5 8410-2 ####KO LABORATORYCLIA [id number] [place] [address] [place] Comprehensive metabolic 2000 panelon 11-17-2023 Albumin [Mass/Vol] 3.5 g/dL Low 3.9-4.9 [facility] Comment on above: Order Comment: Speci men Type: BLOOD SPECIMENOrdering Facility: [facility] Address: [address] [place] [address] Performed By: #### 2 432-8, ####KO LABORATORYCLIA [id number] [place] [address] [place] ALP [Catalytic activity/Vol] 56 U/L Normal 34-123 [facility] Comment on above: Order Comment: Speci men Type: BLOOD SPECIMENOrdering Facility: [facility] Address: [address] [place] [address] Performed By: #### 2 4322-8, ####KO LABORATORYCLIA [id number] [address] [place] ALT [Catalytic activity/Vol] 16 U/L Normal 7-38 [facility] Comment on above: Order Comment: Speci men Type: BLOOD SPECIMENOrdering Facility: [facility] Address: [address] [place] [address] Performed By: #### 2 8, ####KO LABORATORYCLIA [id number] [address] [place] Anion gap [Moles/Vol] 5 mmol/L Low 8-15 [facility] Comment on above: Order Comment: Speci men Type: BLOOD SPECIMENOrdering Facility: [facility] Address: [address] [place] [address] Performed By: #### 2 4322-8, ####KO LABORATORYCLIA [id number] [place] [id number] [place] AST [Catalytic activity/Vol] 16 U/L Normal 13-35 [facility] Comment on above: Order Comment: Speci men Type: BLOOD SPECIMENOrdering Facility: [facility] Address: [address] [place] [address] Performed By: #### 2 4322-8, 24832-1 ####KO LABORATORYCLIA [id number] [place] [address] [place] Bilirubin [Mass/Vol] 0.4 mg/dL Normal 0.2-1.3 [facility] Comment on above: Order Comment: Speci men Type: BLOOD SPECIMENOrdering Facility: [facility] Address: [address] [place] [address] Performed By: #### 2 4323-8, ####KO LABORATORYCLIA [id number] [place] [address] [place] Calcium [Mass/Vol] 8.5 mg/dL Normal 8.5-10.2 [facility] Comment on above: Order Comment: Speci men Type: BLOOD SPECIMENOrdering Facility: [facility] Address: [address] [place] [address] Performed By: #### 2 4323-8, ####KO LABORATORYCLIA [id number] [place] [address] [place] Chloride [Moles/Vol] 110 mmol/L High 98-107 [facility] Comment on above: Order Comment: Speci men Type: BLOOD SPECIMENOrdering Facility: [facility] Address: [address] [place] [address] Performed By: #### 2 4323-8, ####KO LABORATORYCLIA [id number] [place] [address] [place] CO2 [Moles/Vol] 28 mmol/L Normal 22-30 [facility] Comment on above: Order Comment: Speci men Type: BLOOD SPECIMENOrdering Facility: [facility] Address: [address] [place] [address] Performed By: #### 2 4323-8, ####KO LABORATORYCLIA [id number] [place] [address] [place] Creatinine [Mass/Vol] 1.05 mg/dL High 0.58-0.96 [facility] Comment on above: Order Comment: Speci men Type: BLOOD SPECIMENOrdering Facility: [facility] Address: [address] [place] [address] Performed By: #### 2 4323-8, ####KO LABORATORYCLIA [id number] [place] [address] [place] Creatinine and Glomerular filtration rate.predicted panel (S/P/Bld) 55 mL/min/1.73m??? Low >=60 [facility] Comment on above: Order Comment: Lenard jesus Type: BLOOD SPECIMENOrdering Facility: [facility] Address: [address] [place] [address] Result Comment: Aaron mated Glomerular Filtration Rate [...] Performed By: #### 2 4323-8, ####KO LABORATORYCLIA [id number] [place] [id number] [place] Glucose [Mass/Vol] 79 mg/dL Normal 74-99 [facility] Comment on above: Order Comment: Lenard jesus Type: BLOOD SPECIMENOrdering Facility: [facility] Address: [address] [place] [address] Result Comment: The [place] Diabetes Association (ADA) provides guidance for cutoff [...] Standards of Medical Care in Diabetes 2016, [place] [employer]. Diabetes Care. 2016.39(Suppl 1). Performed By: #### 2 4323-8, ####KO LABORATORYCLIA [id number] [place] [address] [place] Potassium [Moles/Vol] 4.8 mmol/L Normal 3.7-5.1 [facility] Comment on above: Order Comment: Speci men Type: BLOOD SPECIMENOrdering Facility: [facility] Address: [address] [place] [id number] Performed By: #### 2 4323-8, ####KO LABORATORYCLIA [id number] [place] [address] [place] Protein [Mass/Vol] 6.0 g/dL Low 6.3-8.0 [facility] Comment on above: Order Comment: Speci men Type: BLOOD SPECIMENOrdering Facility: [facility] Address: [address] [place] [address] [place] [address] Performed By: #### 2 432-8, ####KO LABORATORYCLIA [id number] [place] [address] [place] Sodium [Moles/Vol] 143 mmol/L Normal 136-144 [facility] Comment on above: Order Comment: Speci men Type: BLOOD SPECIMENOrdering Facility: [facility] Address: [address] [place] [address] Performed By: #### 2 4323-8, ####KO LABORATORYCLIA [id number] [place] [address] [place] Urea nitrogen [Mass/Vol] 34 mg/dL High 7-21 [facility] Comment on above: Order Comment: Speci men Type: BLOOD SPECIMENOrdering Facility: [facility] Address: [address] [place] [id number] Performed By: #### 2 4323-8, ####KO LABORATORYCLIA [id number] [place] [address] [place] Magnesium SerPl-mCncon 11-16 Magnesium [Mass/Vol] 2.0 mg/dL Normal 1.7-2.3 [facility] Comment on above: Order Comment: Speci men Type: BLOOD SPECIMENOrdering Facility: [facility] Address: [address] [place] [address] Performed By: #### 2 432-8, ####KO LABORATORYCLIA [id number] [address] CBC panel Auto (Bld)on 11-15 Erythrocyte distribution width (RBC) [Ratio] 14.3 % Normal 11.5-15.0 [facility] Comment on above: Order Comment: Speci men Type: BLOOD SPECIMENOrdering Facility: [facility] Address: [address] [place] [address] Performed By: #### 5 8410-2 ####KO LABORATORYCLIA [id number] [address] Hematocrit (Bld) [Volume fraction] 37.4 % Normal 36.0-46.0 [facility] Comment on above: Order Comment: Speci men Type: BLOOD SPECIMENOrdering Facility: [facility] Address: [address] [place] [address] Performed By: #### 5 8410-2 ####KO LABORATORYCLIA [id number] [address] Hemoglobin (Bld) [Mass/Vol] 11.8 g/dL Normal 11.5-15.5 [facility] Comment on above: Order Comment: Speci men Type: BLOOD SPECIMENOrdering Facility: [facility] Address: [address] [place] [address] Performed By: #### 5 8410-2 ####KO LABORATORYCLIA [id number] [address] MCH (RBC) [Entitic mass] 28.9 pg Normal 26.0-34.0 [facility] Comment on above: Order Comment: Speci men Type: BLOOD SPECIMENOrdering Facility: [facility] Address: [address] [place] [address] Performed By: #### 5 8410-2 ####KO LABORATORYCLIA [id number] [address] MCHC (RBC) [Mass/Vol] 31.6 g/dL Normal 30.5-36.0 [facility] Comment on above: Order Comment: Speci men Type: BLOOD SPECIMENOrdering Facility: [facility] Address: [address] [place] [address] Performed By: #### 5 8410-2 ####KO LABORATORYCLIA [id number] [address] [place] MCV (RBC) [Entitic vol] 91.4 fL Normal 80.0-100.0 [facility] Comment on above: Order Comment: Speci men Type: BLOOD SPECIMENOrdering Facility: [facility] Address: [address] [place] [address] Performed By: #### 5 8410-2 ####KO LABORATORYCLIA [id number] [address] Nucleated RBC (Bld) [#/Vol] 10*3/uL Normal <0.01 [facility] Comment on above: Order Comment: Speci men Type: BLOOD SPECIMENOrdering Facility: [facility] Address: [address] [place] [address] Performed By: #### 5 8410-2 ####KO LABORATORYCLIA [id number] [address] [place] Platelet mean volume (Bld) [Entitic vol] 10.1 fL Normal 9.0-12.7 [facility] Comment on above: Order Comment: Speci men Type: BLOOD SPECIMENOrdering Facility: [facility] Address: [address] [place] [address] Performed By: #### 5 8410-2 ####KO LABORATORYCLIA [id number] [address] [place] Platelets (Bld) [#/Vol] 356 10*3/uL Normal 150-400 [facility] Comment on above: Order Comment: Speci men Type: BLOOD SPECIMENOrdering Facility: [facility] Address: [address] [place] [address] Performed By: #### 5 8410-2 ####KO LABORATORYCLIA [id number] [place] [address] [facility] [place] RBC (Bld) [#/Vol] 4.09 10*6/uL Normal 3.90-5.20 [facility] Comment on above: Order Comment: Speci men Type: BLOOD SPECIMENOrdering Facility: [facility] Address: [address] [place] [address] Performed By: #### 5 8410-2 ####KO LABORATORYCLIA [id number] [place], [place] [address] [place] [address] OF [facility] WBC (Bld) [#/Vol] 13.58 10*3/uL High 3.70-11.00 [facility] Comment on above: Order Comment: Speci men Type: BLOOD SPECIMENOrdering Facility: [facility] Address: [address] [place] [address] [place] [id number] Performed By: #### 5 8410-2 ####KO LABORATORYCLIA [id number] [address] Comprehensive metabolic 2000 panelon 11-16-2023 Albumin [Mass/Vol] 3.4 g/dL Low 3.9-4.9 [facility] Comment on above: Order Comment: Speci men Type: BLOOD SPECIMENOrdering Facility: [facility] Address: [address] [place], [place] [address] [id number] Performed By: #### 2 4323-8, ####KO LABORATORYCLIA [id number] [address] OF [facility] ALP [Catalytic activity/Vol] 58 U/L Normal 34-123 [facility] Comment on above: Order Comment: Speci men Type: BLOOD SPECIMENOrdering Facility: [facility] Address: [address] [place] [id number] Performed By: #### 2 4323-8, 86908-3 ####KO LABORATORYCLIA [id number] [place] [id number] [facility] ALT [Catalytic activity/Vol] 15 U/L Normal 7-38 [facility] Comment on above: Order Comment: Speci men Type: BLOOD SPECIMENOrdering Facility: [facility] Address: [address] [place] [id number] Performed By: #### 2 4323-8, 47090-1 ####KO LABORATORYCLIA [id number] [place] [id number] [facility] [place] Anion gap [Moles/Vol] 10 mmol/L Normal 8-15 [facility] Comment on above: Order Comment: Speci men Type: BLOOD SPECIMENOrdering Facility: [facility] Address: [address] [place] [address] Performed By: #### 2 4323-8, ####KO LABORATORYCLIA [id number] [address] [place] AST [Catalytic activity/Vol] 16 U/L Normal 13-35 [facility] Comment on above: Order Comment: Speci men Type: BLOOD SPECIMENOrdering Facility: [facility] Address: [address] [place], [place] [address] [address] Performed By: #### 2 432-8, ####KO LABORATORYCLIA [id number] [address] [place] Bilirubin [Mass/Vol] 0.3 mg/dL Normal 0.2-1.3 [facility] Comment on above: Order Comment: Speci men Type: BLOOD SPECIMENOrdering Facility: [facility] Address: [address] [place] [address] Performed By: #### 2 8, ####KO LABORATORYCLIA [id number] [address] [place] Calcium [Mass/Vol] 8.6 mg/dL Normal 8.5-10.2 [facility] Comment on above: Order Comment: Speci men Type: BLOOD SPECIMENOrdering Facility: [facility] Address: [address] [place] [address] Performed By: #### 2 432-8, ####KO LABORATORYCLIA [id number] [place] [address] [place] Chloride [Moles/Vol] 105 mmol/L Normal 98-107 [facility] Comment on above: Order Comment: Speci men Type: BLOOD SPECIMENOrdering Facility: [facility] Address: [address] [place] [address] Performed By: #### 2 432-8, ####KO LABORATORYCLIA [id number] [place] [id number] [place] CO2 [Moles/Vol] 25 mmol/L Normal 22-30 [facility] Comment on above: Order Comment: Lenard jesus Type: BLOOD SPECIMENOrdering Facility: [facility] Address: [address] [place] [address] Performed By: #### 2 4323-8, ####KO LABORATORYCLIA [id number] [place] [address] [place] Creatinine [Mass/Vol] 1.28 mg/dL High 0.58-0.96 [facility] Comment on above: Order Comment: Speci men Type: BLOOD SPECIMENOrdering Facility: [facility] Address: [address] [place] [address] Performed By: #### 2 4323-8, ####KO LABORATORYCLIA [id number] [address] Creatinine and Glomerular filtration rate.predicted panel (S/P/Bld) 43 mL/min/1.73m??? Low >=60 [facility] Comment on above: Order Comment: Speci men Type: BLOOD SPECIMENOrdering Facility: [facility] Address: [address] [place] [address] Result Comment: Aaron mated Glomerular Filtration Rate [...] Performed By: #### 2 4323-8, ####KO LABORATORYCLIA [id number] [place] [id number] [place] Glucose [Mass/Vol] 121 mg/dL High 74-99 [facility] Comment on above: Order Comment: Ernestinei edin Type: BLOOD SPECIMENOrdering Facility: [facility] Address: [address] [place] [address] Result Comment: The [place] [employer] (ADA) provides guidance for cutoff [...] Standards of Medical Care in Diabetes 2016, [place] [employer]. Diabetes Care. 2016.39(Suppl 1). Performed By: #### 2 4328, ####KO LABORATORYCLIA [id number] [place] [address] [place] Potassium [Moles/Vol] 4.7 mmol/L Normal 3.7-5.1 [facility] Comment on above: Order Comment: Lenard jesus Type: BLOOD SPECIMENOrdering Facility: [facility] Address: [address] [place] [address] Performed By: #### 2 4322-12, ####KO LABORATORYCLIA [id number] [place] [address] [place] Protein [Mass/Vol] 6.3 g/dL Normal 6.3-8.0 [facility] Comment on above: Order Comment: Lenard jesus Type: BLOOD SPECIMENOrdering Facility: [facility] Address: [address] [place] [address] Performed By: #### 2 4322-12, ####KO LABORATORYCLIA [id number] [place] [address] [place] Sodium [Moles/Vol] 140 mmol/L Normal 136-144 [facility] Comment on above: Order Comment: Lenard jesus Type: BLOOD SPECIMENOrdering Facility: [facility] Address: [address] [place] [address] Performed By: #### 2 4328, ####KO LABORATORYCLIA [id number] [place] [address] [place] Urea nitrogen [Mass/Vol] 46 mg/dL High 7-21 [facility] Comment on above: Order Comment: Speci men Type: BLOOD SPECIMENOrdering Facility: [facility] Address: [address] [place], [place] [address] Performed By: #### 2 4323-8, 95738-2 ####[facility] LABORATORYCLIA [id number] [place] [address] [facility] [place] Magnesium SerPl-mCncon 11-15 Magnesium [Mass/Vol] 2.1 mg/dL Normal 1.7-2.3 [facility] Comment on above: Order Comment: Speci men Type: BLOOD SPECIMENOrdering Facility: [facility] Address: [address] [place] [address] Performed By: #### 2 4323-8, ####[facility] LABORATORYCLIA [id number] [place] [address] [facility] NURSING PROGon 11-16-2023 NURSING PROG HNO ID: [id number] Author: MISTY ASCENCIO, CARO Service: Nursing Author Type: Registered Nurse Type: Nursing Progress Note Filed: 11/16/2023 14:15 Note Text: PATIENT EDUCATION HEART FAILURE PATIENT NAME: Sandra Schmitz PATIENT LOCATION: [place] [address] [address] SURVIVAL SKILLS: Low Sodium Diet Weight Monitoring [...] rehab post insertion of pacemaker/defib. Follows [employer] ,as well as, [place]'s cardiology team. States she missed her echo [...] (RECOMMENDATION): Cardiology Electronically Signed By: Misty Ascencio [facility] HNO ID: [id number] Author: JESUS PADILLA RT(R) Service: Radiology Author [...] PATIENT PRESENTS WITH AN IMPLANTABLE OR ATTACHED TIME ANALYSIS CLERK: No RADIOLOGY DEPARTMENT: General X-ray: Exam(s) Completed: Chest X-Ray PERIPHERAL IV DATA: Not applicable SIGNED BY: RT William(R) November 15, 2023 8:26 PM [facility] HNO ID: [id number] Author: MASON VAIL RT(R) Service: Radiology Author [...] PATIENT PRESENTS WITH AN IMPLANTABLE OR ATTACHED TIME ANALYSIS CLERK: No RADIOLOGY DEPARTMENT: CT; Exam(s) Completed: Abdomen/Pelvis and Brain PERIPHERAL IV DATA: Inpatient: see LDA documentation SIGNED BY: RT Dominique(R) November 15, 2023 8:05 PM Normal [facility] CBC W Auto Differential pane l (Bld)on 11-15-2023 Basophils (Bld) [#/Vol] 0.10 10*3/uL Normal <0.11 [facility] Comment on above: Order Comment: Speci men Type: BLOOD SPECIMENOrdering Facility: [facility] Address: [address] [place] [address] Performed By: #### 5 7021-8 ####KO LABORATORYCLIA [id number] [place] [address] [place] Basophils/100 WBC (Bld) 0.6 % Normal [facility] Comment on above: Order Comment: Speci men Type: BLOOD SPECIMENOrdering Facility: [facility] Address: [address] [place] [address] Performed By: #### 5 7021-8 ####KO LABORATORYCLIA [id number] [place] [address] [place] Differential cell count method Nom (Bld) Auto Normal [facility] Comment on above: Order Comment: Speci men Type: BLOOD SPECIMENOrdering Facility: [facility] Address: [address] [place] [address] Performed By: #### 5 7021-8 ####KO LABORATORYCLIA [id number] [address] [place] Eosinophils (Bld) [#/Vol] 0.22 10*3/uL Normal <0.46 [facility] Comment on above: Order Comment: Speci men Type: BLOOD SPECIMENOrdering Facility: [facility] Address: [address] [place] [address] Performed By: #### 5 7021-8 ####KO LABORATORYCLIA [id number] [address] Eosinophils/100 WBC (Bld) 1.4 % Normal [facility] Comment on above: Order Comment: Speci men Type: BLOOD SPECIMENOrdering Facility: [facility] Address: [address] [place] [address] Performed By: #### 5 7021-8 ####KO LABORATORYCLIA [id number] [address] [place] Erythrocyte distribution width (RBC) [Ratio] 14.3 % Normal 11.5-15.0 [facility] Comment on above: Order Comment: Speci men Type: BLOOD SPECIMENOrdering Facility: [facility] Address: [address] [place] [address] Performed By: #### 5 7021-8 ####KO LABORATORYCLIA [id number] [address] Hematocrit (Bld) [Volume fraction] 43.3 % Normal 36.0-46.0 [facility] Comment on above: Order Comment: Speci men Type: BLOOD SPECIMENOrdering Facility: [facility] Address: [address] [place] [address] Performed By: #### 5 7021-8 ####KO LABORATORYCLIA [id number] [address] [place] Hemoglobin (Bld) [Mass/Vol] 13.8 g/dL Normal 11.5-15.5 [facility] Comment on above: Order Comment: Speci men Type: BLOOD SPECIMENOrdering Facility: [facility] Address: [address] [place] [address] Performed By: #### 5 7021-8 ####KO LABORATORYCLIA [id number] [place] [address] [place] Immature granulocytes (Bld) [#/Vol] 0.25 10*3/uL High <0.10 [facility] Comment on above: Order Comment: Speci men Type: BLOOD SPECIMENOrdering Facility: [facility] Address: [address] [place] [address] Performed By: #### 5 7021-8 ####KO LABORATORYCLIA [id number] [address] STATES [facility] Immature granulocytes/100 WBC (Bld) 1.6 % Normal [facility] Comment on above: Order Comment: Speci men Type: BLOOD SPECIMENOrdering Facility: [facility] Address: [address] [place] [address] Performed By: #### 5 7021-8 ####KO LABORATORYCLIA [id number] [address] [place] Lymphocytes (Bld) [#/Vol] 2.35 10*3/uL Normal 1.00-4.00 [facility] Comment on above: Order Comment: Speci men Type: BLOOD SPECIMENOrdering Facility: [facility] Address: [address] [place] [address] Performed By: #### 5 7021-8 ####KO LABORATORYCLIA [id number] [address] Lymphocytes/100 WBC (Bld) 15.0 % Normal [facility] Comment on above: Order Comment: Speci men Type: BLOOD SPECIMENOrdering Facility: [facility] Address: [address] [place] [address] Performed By: #### 5 7021-8 ####KO LABORATORYCLIA [id number] [place] [address] [place] MCH (RBC) [Entitic mass] 29.3 pg Normal 26.0-34.0 [facility] Comment on above: Order Comment: Speci men Type: BLOOD SPECIMENOrdering Facility: [facility] Address: [address] [place] [address] Performed By: #### 5 7021-8 ####KO LABORATORYCLIA [id number] [place] [id number] [place] MCHC (RBC) [Mass/Vol] 31.9 g/dL Normal 30.5-36.0 [facility] Comment on above: Order Comment: Speci men Type: BLOOD SPECIMENOrdering Facility: [facility] Address: [address] [place] [address] Performed By: #### 5 7021-8 ####KO LABORATORYCLIA [id number] [place] [address] [place] MCV (RBC) [Entitic vol] 91.9 fL Normal 80.0-100.0 [facility] Comment on above: Order Comment: Speci men Type: BLOOD SPECIMENOrdering Facility: [facility] Address: [address] [place] [address] Performed By: #### 5 7021-8 ####KO LABORATORYCLIA [id number] [place] [address] [place] Monocytes (Bld) [#/Vol] 1.05 10*3/uL High <0.87 [facility] Comment on above: Order Comment: Speci men Type: BLOOD SPECIMENOrdering Facility: [facility] Address: [address] [place] [address] Performed By: #### 5 7021-8 ####KO LABORATORYCLIA [id number] [address] Monocytes/100 WBC (Bld) 6.7 % Normal [facility] Comment on above: Order Comment: Speci men Type: BLOOD SPECIMENOrdering Facility: [facility] Address: [address] [place] [address] Performed By: #### 5 7021-8 ####KO LABORATORYCLIA [id number] [place] [id number] [place] Neutrophils (Bld) [#/Vol] 11.69 10*3/uL High 1.45-7.50 [facility] Comment on above: Order Comment: Speci men Type: BLOOD SPECIMENOrdering Facility: [facility] Address: [address] [place] [address] Performed By: #### 5 7021-8 ####KO LABORATORYCLIA [id number] [address] Neutrophils/100 WBC (Bld) 74.7 % Normal [facility] Comment on above: Order Comment: Speci men Type: BLOOD SPECIMENOrdering Facility: [facility] Address: [address] [place] [address] Performed By: #### 5 7021-8 ####KO LABORATORYCLIA [id number] [place] [address] [place] Nucleated RBC (Bld) [#/Vol] 10*3/uL Normal <0.01 [facility] Comment on above: Order Comment: Speci men Type: BLOOD SPECIMENOrdering Facility: [facility] Address: [address] [place] [address] Performed By: #### 5 7021-8 ####KO LABORATORYCLIA [id number] [address] STATES [facility] Nucleated RBC/100 WBC (Bld) [Ratio] 0.0 /100 WBC Normal [facility] Comment on above: Order Comment: Speci men Type: BLOOD SPECIMENOrdering Facility: [facility] Address: [address] [place] [address] Performed By: #### 5 7021-8 ####KO LABORATORYCLIA [id number] [address] [place] Platelet mean volume (Bld) [Entitic vol] 10.4 fL Normal 9.0-12.7 [facility] Comment on above: Order Comment: Speci men Type: BLOOD SPECIMENOrdering Facility: [facility] Address: [address] [place] [address] Performed By: #### 5 7021-8 ####KO LABORATORYCLIA [id number] [address] [place] Platelets (Bld) [#/Vol] 386 10*3/uL Normal 150-400 [facility] Comment on above: Order Comment: Speci men Type: BLOOD SPECIMENOrdering Facility: [facility] Address: [address] [place] [address] Performed By: #### 5 7021-8 ####KO LABORATORYCLIA [id number] [place] [address] [place] RBC (Bld) [#/Vol] 4.71 10*6/uL Normal 3.90-5.20 [facility] Comment on above: Order Comment: Speci men Type: BLOOD SPECIMENOrdering Facility: [facility] Address: [address] [place] [address] Performed By: #### 5 7021-8 ####KO LABORATORYCLIA [id number] [place] [address] [place] WBC (Bld) [#/Vol] 15.66 10*3/uL High 3.70-11.00 [facility] Comment on above: Order Comment: Speci men Type: BLOOD SPECIMENOrdering Facility: [facility] Address: [address] [place] [address] Performed By: #### 5 7021-8 ####[place] [place] LABORATORYCLIA [id number] [address] OF [facility] CT ABD/PEL WO IVCONon 2023 CT ABD/PEL WO IVCON * * *Final Report* * * DATE OF EXAM: Nov 15 2023 8:16PM [facility] [place] CT ABD/PEL WO IVCON / [...] Additional findings as detailed in the report. Wafer Fab Operator: PSCB Transcribe Date/Time: Nov 15 2023 8:42P Dictated by : PATRICIA GARCÍA MD This examination was interpreted and the report reviewed and electronically signed by: PATRICIA GARCÍA MD on Nov 15 2023 8:44PM EST [id number] [facility] CT BRAIN WO IVCONon 11-15-19 CT BRAIN WO IVCON * * *Final Report* * * DATE OF EXAM: Nov 15 2023 8:16PM [facility] [place] - CT BRAIN WO IVCON / [...] parenchymal volume loss. Additional findings as detailed. Wafer Fab Operator: KEYANA Transcribe Date/Time: Nov 15 2023 8:44P Dictated by : PATRICIA GARCÍA MD This examination was interpreted and the report reviewed and electronically signed by: PATRICIA GARCÍA MD on Nov 15 2023 8:46PM EST [id number] Normal [facility] Comprehensive metabolic 2000 panelon 11-15-2023 Albumin [Mass/Vol] 3.9 g/dL Normal 3.9-4.9 [facility] Comment on above: Order Comment: Lenard jesus Type: BLOOD SPECIMENOrdering Facility: [facility] Address: [address] [place] [address] Performed By: #### 2 4323-8, 3040-3, 66524-0, 71698-1, [id number] ####[facility] LABORATORYCLIA [id number] [place] [address] [place] ALP [Catalytic activity/Vol] 64 U/L Normal 34-123 [facility] Comment on above: Order Comment: Lenard jesus Type: BLOOD SPECIMENOrdering Facility: [facility] Address: [address] [place] [address] Performed By: #### 2 4323-8, 3040-3, 80087-6, 63054-1, [id number] ####[facility] LABORATORYCLIA [id number] [place] [id number] [place] ALT [Catalytic activity/Vol] 14 U/L Normal 7-38 [facility] Comment on above: Order Comment: Lenard jesus Type: BLOOD SPECIMENOrdering Facility: [facility] Address: [address] [place] [address] Performed By: #### 2 4323-8, 3040-3, 27393-8, 09973-6, [id number] ####[facility] LABORATORYCLIA [id number] [place] [id number] [place] Anion gap [Moles/Vol] 11 mmol/L Normal 8-15 [facility] Comment on above: Order Comment: Speci men Type: BLOOD SPECIMENOrdering Facility: [facility] Address: [address] [place] [address] Performed By: #### 2 4323-8, 3040-3, 37054-5, 69590-7, [id number] ####[facility] LABORATORYCLIA [id number] [place] [address] [place] AST [Catalytic activity/Vol] Normal [facility] Comment on above: Order Comment: Speci men Type: BLOOD SPECIMENOrdering Facility: [facility] Address: [address] [place] [address] Result Comment: Unab le to assay due to interference from hemolysis. Suggest reorder as clinically indicated. Performed By: #### 2 4323-8, 3040-3, 69268-4, 78952-8, [id number] ####[facility] LABORATORYCLIA [id number] [place] [address] [place] Bilirubin [Mass/Vol] 0.3 mg/dL Normal 0.2-1.3 [facility] Comment on above: Order Comment: Speci men Type: BLOOD SPECIMENOrdering Facility: [facility] Address: [address] [place] [address] Performed By: #### 2 4323-8, 3040-3, 09586-5, 60613-7, [id number] ####[facility] LABORATORYCLIA [id number] [place] [address] [place] Calcium [Mass/Vol] 9.5 mg/dL Normal 8.5-10.2 [facility] Comment on above: Order Comment: Speci men Type: BLOOD SPECIMENOrdering Facility: [facility] Address: [address] [place] [address] Performed By: #### 2 4323-8, 3040-3, 82710-9, 95112-0, [id number] ####[facility] LABORATORYCLIA [id number] [place] [address] [place] Chloride [Moles/Vol] 100 mmol/L Normal 98-107 [facility] Comment on above: Order Comment: Specjeffy men Type: BLOOD SPECIMENOrdering Facility: [facility] Address: [address] [place] [address] Performed By: #### 2 4323-8, 3040-3, 10758-2, 33977-1, [id number] ####[facility] LABORATORYCLIA [id number] [place] [address] [place] CO2 [Moles/Vol] 28 mmol/L Normal 22-30 [facility] Comment on above: Order Comment: Speci men Type: BLOOD SPECIMENOrdering Facility: [facility] Address: [address] [place], [place] [address] Performed By: #### 2 4323-8, 3040-3, 40881-4, 40979-4, [id number] ####[facility] LABORATORYCLIA [id number] [place] [id number] [place] Creatinine [Mass/Vol] 1.94 mg/dL High 0.58-0.96 [facility] Comment on above: Order Comment: Speci men Type: BLOOD SPECIMENOrdering Facility: [facility] Address: [address] [place], [place] [address] Performed By: #### 2 4323-8, 3040-3, 09083-1, 19687-8, [id number] ####[facility] LABORATORYCLIA [id number] [place] [id number] [facility] Creatinine and Glomerular filtration rate.predicted panel (S/P/Bld) 26 mL/min/1.73m??? Low >=60 [facility] Comment on above: Order Comment: Spec men Type: BLOOD SPECIMENOrdering Facility: [facility] Address: [address] [place], [place] [address] Result Comment: Aaron mated Glomerular Filtration Rate [...] GFR. Performed By: #### 2 4323-8, 3040-3, 17021-3, 03602-6, [id number] ####KO LABORATORYCLIA [id number] [place] [address] [place] Glucose [Mass/Vol] 147 mg/dL High 74-99 [facility] Comment on above: Order Comment: Lenard jesus Type: BLOOD SPECIMENOrdering Facility: [facility] Address: [address] [place] [address] Result Comment: The [place] [employer] Association (ADA) provides guidance for cutoff [...] Standards of Medical Care in Diabetes 2016, [place] [employer]. Diabetes Care. 2016.39(Suppl 1). Performed By: #### 2 4323-8, 3040-3, 33075-7, 60431-7, [id number] ####KO LABORATORYCLIA [id number] [place] [id number] [place] Potassium [Moles/Vol] 4.5 mmol/L Normal 3.7-5.1 [facility] Comment on above: Order Comment: Lenard jesus Type: BLOOD SPECIMENOrdering Facility: [facility] Address: [address] [place] [id number] Performed By: #### 2 4323-8, 3040-3, 44778-3, 45799-5, [id number] ####[facility] LABORATORYCLIA [id number] [place] [id number] [place] Protein [Mass/Vol] 7.5 g/dL Normal 6.3-8.0 [facility] Comment on above: Order Comment: Lenard jesus Type: BLOOD SPECIMENOrdering Facility: [facility] Address: [address] [place] [address] Performed By: #### 2 4323-8, 3040-3, 70702-1, 96433-0, [id number] ####KO LABORATORYCLIA [id number] [address] STATES [facility] Sodium [Moles/Vol] 139 mmol/L Normal 136-144 [facility] Comment on above: Order Comment: Speci men Type: BLOOD SPECIMENOrdering Facility: [facility] Address: [address] [place], [place] [address] Performed By: #### 2 4323-8, 3040-3, 18721-2, 55699-5, [id number] ####KO LABORATORYCLIA [id number] [address] Urea nitrogen [Mass/Vol] 50 mg/dL High 7-21 [facility] Comment on above: Order Comment: Speci men Type: BLOOD SPECIMENOrdering Facility: [facility] Address: [address] [place] [address] Performed By: #### 2 4323-8, 3040-3, 94958-9, 07911-8, [id number] ####[facility] LABORATORYCLIA [id number] [address] D dimer FEU PPP-mCncon 11-14 Fibrin D-dimer FEU (PPP) [Mass/Vol] 620 ng/mL FEU High <500 [facility] Comment on above: Order Comment: Speci men Type: BLOOD SPECIMENOrdering Facility: [facility] Address: [address] [place] [address] Performed By: #### 4 8065-7, 06278-1, 10757-9 ####[facility] LABORATORYCLIA [id number] [place] [id number] [facility] ED NOTEon 11-15-2023 ED NOTE HNO ID: [id number] Author: CHALO CHAIDEZ, CARO Service: ? Author Type: Registered Nurse Type: ED Notes Filed: 11/15/2023 22:21 Note Text: Verbal phone report was provided to Josette on . The pt remains stable for transport to the floor for admission. NAD noted at this time. Belongings list was completed. Medic to transport. [facility] ED NOTE HNO ID: [id number] Author: CHALO CHAIDEZ RN Service: ? Author Type: Registered Nurse Type: ED Notes Filed: 11/15/2023 22:07 Note Text: Heads up called to -South charge nurse (Spoke with Singh) [facility] ED PROV NOTEon 11-15-2023 ED PROV NOTE HNO ID: [id number] Author: ISIAH CHOI MD Service: Emergency Medicine [...] on chronic systolic CHF (congestive heart failure) ([facility]) 05/03/2020 Aspiration pneumonia ([facility]) 05/30/2020 Chest pain 05/03/2020 Chest pressure 01/23/2013 Chronic diastolic congestive heart failure (HCC) 02/14/2021 Clostridium difficile diarrhea 09/28/2020 Complete uterovaginal prolapse Cystocele, midline Essential hypertension 06/14/2020 Homozygous Factor V Leiden mutation ([facility]) 05/03/2020 Hypothyroidism IBS (irritable bowel syndrome) 01/23/2013 [...] rub. No gallop. (more content not included)... [facility] EKGon 11-15-2023 Electrocardiogram Ventricular Rate : 5 9 BPM Atrial Rate : 59 BPM P-R Interval : 114 ms QRS Duration : 122 ms Q-T Interval : 490 ms QTC Calculation(Bazett) : 485 ms Calculated P [place] : 27 degrees Calculated R [place] : -60 degrees Calculated T [place] : 78 degrees Atrial-sensed ventricular-paced rhythm ABNORMAL ECG When compared with selected ECG of 10-Jul-2023 07:12, ELECTRONIC VENTRICULAR PACEMAKER HAS REPLACED SINUS RHYTHM no STEMI Confirmed by MD CHOI EDWARD.S ([id number]) on 11/15/2023 7:34:54 PM NAME : SANDRA SCHMITZ PID : [id number] : 1945 Gender : Female Race : ORD : Procedure Date : Nov 15 2023 19:27:04 Edit Date : Nov 15 2023 19:34:59 Diagnosis: Atrial-sensed ventricular-paced rhythm ABNORMAL ECG When compared with selected ECG of 10-Jul-2023 07:12, ELECTRONIC VENTRICULAR PACEMAKER HAS REPLACED SINUS RHYTHM no STEMI Confirmed by MD CHOI EDWARD.S ([id number]) on 11/15/2023 7:34:54 PM Test Reason : Location : 1 : ER ED Overread By : MD CHOI EDWARD.S Edited By : MD CHOI EDWARD.Eileen Referred By : , Acquired by : WENCESLAO RN, [facility] FLUABV+SARS-CoV-2+RSV Pnl Re sp PRECIOUS+probeon 11-15-2023 FLUABV+SARS-CoV-2+RSV Pnl Resp PRECIOUS+probe COVID 19 RESULT: Not detected The method used is RT-PCR or an equivalent NAAT method. Reference Range(the expected result in uninfected individuals): Not detected INFLUENZA A PCR: Not detected INFLUENZA B PCR: Not detected RSV PCR: Not detected Normal [facility] Comment on above: Performed By: #### 9 5941-1 ####[facility] LABORATORYCLIA [id number] [place] [address] [place] Fibrin D-dimer FEU (PPP) [Ma ss/Vol]on 11-15-2023 D DIMER AGE-RELATED CUTOFF 770 ng/mL FEU Normal [facility] Comment on above: Order Comment: Lenard jesus Type: BLOOD SPECIMENOrdering Facility: [facility] Address: [address] [place] [address] Performed By: #### 4 8065-7, 62274-5, 58238-9 ####[facility] LABORATORYCLIA [id number] [address] [place] Gas and Carbon monoxide pane l (BldV)on 11-15-2023 Base excess Calc (BldV) [Moles/Vol] 2 mmol/L Normal 0-2 [facility] Comment on above: Order Comment: Lenard jessu Type: VENOUS BLOOD SPECIMENOrdering Facility: [facility] Address: [address] [place] [address] Performed By: #### 2 4344-4 ####[facility] RESPIRATORYCLIA [id number] [facility] RESPIRAT[facility] [id number] [place] [address] Carboxyhemoglobin (BldV) [Mass fraction] <1.0 Normal 0.0-2.0 [facility] Comment on above: Order Comment: Lenard jesus Type: VENOUS BLOOD SPECIMENOrdering Facility: [facility] Address: [address] [place] [address] Result Comment: Carb oxyhemoglobin Reference Range for Smokers: 2.0-8.0% Performed By: #### 2 4344-4 ####[facility] RESPIRATORYCLIA [id number] [facility] [id number] [address] [address] CO2 (BldV) [Partial pressure] 46 mm[Hg] Normal 42-55 [facility] Comment on above: Order Comment: Speci men Type: VENOUS BLOOD SPECIMENOrdering Facility: [facility] Address: [address] [place] [address] Performed By: #### 2 4344-4 ####[facility] RESPIRATORYCLIA [id number] [facility] [id number] [address] [address] CO2 adjusted to patient's actual temperature (BldV) [Partial pressure] Normal [facility] Comment on above: Order Comment: Speci men Type: VENOUS BLOOD SPECIMENOrdering Facility: [facility] Address: [address] [place] [address] Performed By: #### 2 4344-4 ####[facility] RESPIRATORYGR[facility]OTT[facility] [id number] [facility] RESPIRAT[facility] [id number] [address] HCO3 (Bld) [Moles/Vol] 27 mmol/L Normal 24-28 [facility] Comment on above: Order Comment: Speci men Type: VENOUS BLOOD SPECIMENOrdering Facility: [facility] Address: [address] [place] [address] Performed By: #### 2 4344-4 ####[facility] RESPIRATORYGRACE COTTAGE [facility] [id number] [facility] RESPIRATORY [id number] [address] [address] Hemoglobin (Bld) [Mass/Vol] 13.0 g/dL Normal 11.5-15.5 [facility] Comment on above: Order Comment: Speci men Type: VENOUS BLOOD SPECIMENOrdering Facility: [facility] Address: [address] [place] [address] Performed By: #### 2 4344-4 ####[facility] RESPIRATORYGR[facility] COTTAGE [facility] [id number] [facility]OS[facility] RESPIRATORY [id number] [address] [address] Lactate [Moles/Vol] 1.6 mmol/L Normal 0.5-2.2 [facility] Comment on above: Order Comment: Speci men Type: VENOUS BLOOD SPECIMENOrdering Facility: [facility] Address: [address] [place] [address] Performed By: #### 2 4344-4 ####KO RESPIRATORYCLIA [id number] [facility] RESPIRAT[facility] [id number] [address] [address] Methemoglobin (Bld) [Mass fraction] % Normal 0.0-1.5 [facility] Comment on above: Order Comment: Speci men Type: VENOUS BLOOD SPECIMENOrdering Facility: [facility] Address: [address] [place] [id number] Performed By: #### 2 4344-4 ####KO RESPIRATORYCLIA [id number] [facility] RES[facility]IR[facility] [id number] [address] [address] O2 THERAPY RA=Room Air [facility] Comment on above: Order Comment: Speci men Type: VENOUS BLOOD SPECIMENOrdering Facility: [facility] Address: [address] [place] [address] Performed By: #### 2 4344-4 ####[facility] RESPIRATORYIA [id number] [id number] [address] [address] Oxygen (BldV) [Partial pressure] 42 mm[Hg] Normal 35-45 [facility] Comment on above: Order Comment: Speci men Type: VENOUS BLOOD SPECIMENOrdering Facility: [facility] Address: [address] [id number] Performed By: #### 2 4344-4 ####KO RESPIRATORYIA [id number]PIRAT[facility] [id number] [address] [address] Oxygen adjusted to patient's actual temperature (BldV) [Partial pressure] Normal [facility] Comment on above: Order Comment: Speci men Type: VENOUS BLOOD SPECIMENOrdering Facility: [facility] Address: [address] [place] [address] Performed By: #### 2 4344-4 ####KO RESPIRATORYIA [id number] [facility] RESPIRATORY [id number] [address] [address] Oxygen saturation in Venous blood 74 % Normal 60-85 [facility] Comment on above: Order Comment: Speci men Type: VENOUS BLOOD SPECIMENOrdering Facility: [facility] Address: [address] [place] [address] Performed By: #### 2 4344-4 ####KO RESPIRATORYCLIA [id number] [facility] RESPIRATORY [id number] [address] [address] Oxyhemoglobin (BldV) [Mass fraction] 73 % Normal [facility] Comment on above: Order Comment: Speci men Type: VENOUS BLOOD SPECIMENOrdering Facility: [facility] Address: [address] [place] [address] Performed By: #### 2 4344-4 ####KO RESPIRATORYCLIA [id number] [facility] RESPIRATORY [id number] [address] [address] pH (BldV) 7.38 [pH] Normal 7.32-7.42 [facility] Comment on above: Order Comment: Speci men Type: VENOUS BLOOD SPECIMENOrdering Facility: [facility] Address: [address] [place] [address] Performed By: #### 2 4344-4 ####KO RESPIRATORYIA [id number] [facility] RESPIRATORY [id number] [address] [address] pH adjusted to patient's actual temperature (BldV) Normal [facility] Comment on above: Order Comment: Speci men Type: VENOUS BLOOD SPECIMENOrdering Facility: [facility] Address: [address] [place] [address] Performed By: #### 2 4344-4 ####KO RESPIRATORYCLIA [id number] [facility] RESPIRATORY [id number] [address] [address] Potassium [Moles/Vol] 3.8 mmol/L Normal 3.5-5.0 [facility] Comment on above: Order Comment: Speci men Type: VENOUS BLOOD SPECIMENOrdering Facility: [facility] Address: [address] [place] [address] Performed By: #### 2 4344-4 ####KO RESPIRATORYCLIA [id number] [facility] RESPIRATORY [id number] [address] [place] [address] HIGH SENSITIVITY TROPONIN T (INITIAL)on 11-15-2023 Troponin T.cardiac High sensitivity method [Mass/Vol] 31 ng/L High <12 [facility] Comment on above: Order Comment: Speci men Type: BLOOD SPECIMENOrdering Facility: [facility] Address: [address] [place] [address] Performed By: #### 2 4323-8, 3040-3, 93098-0, 73413-7, [id number] ####[facility] LABORATORYCLIA [id number] [address] HIGH SENSITIVITY TROPONIN T (SECOND)on 11-15-2023 Troponin T.cardiac High sensitivity method [Mass/Vol] 25 ng/L High <[address] [place] [address] Comment on above: Order Comment: Speci men Type: BLOOD SPECIMENOrdering Facility: [facility] Address: [address] [place] [address] Performed By: #### 3 3959-8, [id number] ####[facility] LABORATORYCLIA [id number] [address] HIGH SENSITIVITY TROPONIN T (THIRD) 3 HRS AFTER INITIALon 11-15-2023 Troponin T.cardiac High sensitivity method [Mass/Vol] 23 ng/L High <[address] [place] [address] Comment on above: Order Comment: Speci men Type: BLOOD SPECIMENOrdering Facility: [facility] Address: [address] [place] [address] Performed By: #### 3 016-3, [id number] ####[facility] LABORATORYCLIA [id number] [place] [id number] [place] HISTORY PHYSICALon HISTORY PHYSICAL HNO ID: [id number] Author: ADDI BRICE DO Service: Hospital Medicine Author Type: Physician Type: H&P Filed: 11/16/2023 00:14 Note Text: DEPARTMENT OF HOSPITAL MEDICINE HISTORY AND PHYSICAL EXAM SERVICE DATE: 11/16/2023 SERVICE TIME: 12:14 AM Primary Care Physician: Mandeep Houser DO NIGHT COVERAGE: [place] [facility] [place] [phone] for any issues or concerns Subjective CHIEF COMPLAINT: Syncope (Having abd cramps was sitting in the bathroom when started breaking out in a sweat and blacking out. ) HPI: This is a 78 year old female with PMH of non ischemic cardiomyopathy, HFrEF (2019, 07-12-23: EF 26%), s/p ENERGY AUDITOR-D (July 20, 2023, medtronic), non occlusive CAD ([facility]: ), IBS, Factor V Leiden [...] 15.66 (*) Abs Neut 11.69 (*) Abs [place] 1.05 (*) Abs Immature Gran 0.25 (*) [...] laboratory APTT reagent in use throughout the [facility]. HIGH SENSITIVITY TROPONIN T (SECOND) - Abnormal; [...] URINALYSIS WI (more content not included)... Normal [facility] Lipase SerPl-cCncon 11-15-19 24 Lipase [Catalytic activity/Vol] 42 U/L Normal 16-61 [facility] Comment on above: Order Comment: Lenard jesus Type: BLOOD SPECIMENOrdering Facility: [facility] Address: [address] [place] [address] Performed By: #### 2 4323-8, 3040-3, 61963-1, 18502-4, [id number] ####[facility] LABORATORYCLIA [id number] [address] [place] Magnesium [facility]-ncon 11-14 Magnesium [Mass/Vol] 2.2 mg/dL Normal 1.7-2.3 [facility] Comment on above: Order Comment: Lenard jesus Type: BLOOD SPECIMENOrdering Facility: [facility] Address: [address] [place] [address] Performed By: #### 2 4323-8, 3040-3, 09513-3, 36513-0, [id number] ####[facility] LABORATORYCLIA [id number] [address] [place] [facility] Natriuretic peptide.B prohormone N-Terminal [Mass/Vol] 1221 pg/mL High <450 [facility] Comment on above: Order Comment: Lenard jesus Type: BLOOD SPECIMENOrdering Facility: [facility] Address: [address] [place] [address] Performed By: #### 2 4323-8, 3040-3, 23423-1, 72999-9, [id number] ####[facility] LABORATORYCLIA [id number] [address] [place] PT panel Coag (PPP)on 2023 INR Coag (PPP) [Relative time] 0.9 {INR} Normal 0.9-1.3 [facility] Comment on above: Order Comment: Lenard jesus Type: BLOOD SPECIMENOrdering Facility: [facility] Address: [address] [place] [address] Result Comment: Sarah min K Antagonist (VKA) Therapeutic Range: INR 2 to 3 (Target INR of 2.5) Note: For patients treated with VKA drugs, such as warfarin, the [place] [employer] 2012 Guideline recommends [...] Chest 2012, 141:7S-47S Becca RA, et al. [facility] 2017, 70: 252-289 Performed By: #### 4 8065-7, 12568-0, 84091-9 ####[facility] LABORATORYCLIA [id number] [place] [address] [place] PT Coag (PPP) [Time] 10.2 s Normal 9.7-13.0 [facility] Comment on above: Order Comment: [facility] Type: BLOOD SPECIMENOrdering Facility: [facility] Address: [address] [place] [address] Performed By: #### 4 8065-7, 06905-5, 18516-5 ####[facility] LABORATORYCLIA [id number] [place] [id number] [place] Procalcitonin SerPl-mCncon 0 11-15-2023 Procalcitonin [Mass/Vol] 0.07 ng/mL Normal <0.09 [facility] Comment on above: Order Comment: Lenard jesus Type: BLOOD SPECIMENOrdering Facility: [facility] Address: [address] [place] [address] Result Comment: For a guided interpretation of test results, please visit the Change in Procalcitonin Calculator, [email or web address]. Performed By: #### 3 3959-8, [id number] ####KO LABORATORYCLIA [id number] [address] TSH SerPl-aCncon 11-15-2023 TSH Qn 1.470 m[IU]/L Normal 0.270-4.200 [facility] Comment on above: Order Comment: Speci men Type: BLOOD SPECIMENOrdering Facility: [facility] Address: [address] [place] [address] Performed By: #### 3 016-3, [id number] ####KO LABORATORYCLIA [id number] [address] Urinalysis complete panel (U )on 11-15-2023 Bilirubin Ql (U) Negative Normal Negative [facility] Comment on above: Order Comment: Speci men Type: URINE SPECIMENOrdering Facility: [facility] Address: [address] [place] [address] Performed By: #### 2 4356-8 ####KO LABORATORYCLIA [id number] [address] Clarity (Unsp spec) Clear Normal Clear [facility] Comment on above: Order Comment: Speci men Type: URINE SPECIMENOrdering Facility: [facility] Address: [address] [place] [address] Performed By: #### 2 4356-8 ####KO LABORATORYCLIA [id number] [address] Color (U) Yellow Normal Yellow [facility] Comment on above: Order Comment: Speci men Type: URINE SPECIMENOrdering Facility: [facility] Address: [address] [place] [address] Performed By: #### 2 4356-8 ####KO LABORATORYCLIA [id number] [address] Epithelial cells LM.HPF (Urine sed) [#/Area] Few Normal [facility] Comment on above: Order Comment: Speci men Type: URINE SPECIMENOrdering Facility: [facility] Address: [address] [place] [address] Performed By: #### 2 4356-8 ####KO LABORATORYCLIA [id number] [address] Glucose Test strip (U) [Mass/Vol] Negative Normal Negative [facility] Comment on above: Order Comment: Speci men Type: URINE SPECIMENOrdering Facility: [facility] Address: [address] [place] [address] Performed By: #### 2 4356-8 ####KO LABORATORYCLIA [id number] [place] [address] [place] Hemoglobin Ql (U) Negative Normal Negative [facility] Comment on above: Order Comment: Speci men Type: URINE SPECIMENOrdering Facility: [facility] Address: [address] [place] [address] Performed By: #### 2 4356-8 ####KO LABORATORYCLIA [id number] [address] [place] Ketones Ql (U) Negative Normal Negative [facility] Comment on above: Order Comment: Speci men Type: URINE SPECIMENOrdering Facility: [facility] Address: [address] [place] [address] Performed By: #### 2 4356-8 ####KO LABORATORYCLIA [id number] [address] Leukocyte esterase Test strip Ql (U) Negative Normal Negative [facility] Comment on above: Order Comment: Speci men Type: URINE SPECIMENOrdering Facility: [facility] Address: [address] [place] [address] Performed By: #### 2 4356-8 ####KO LABORATORYCLIA [id number] [address] [place] Nitrite Ql (U) Negative Normal Negative [facility] Comment on above: Order Comment: Speci men Type: URINE SPECIMENOrdering Facility: [facility] Address: [address] [place] [address] Performed By: #### 2 4356-8 ####KO LABORATORYCLIA [id number] [address] pH (U) 6.0 [pH] Normal 5.0-8.0 [facility] Comment on above: Order Comment: Speci men Type: URINE SPECIMENOrdering Facility: [facility] Address: [address] [place] [address] Performed By: #### 2 4356-8 ####KO LABORATORYCLIA [id number] [address] [place] Protein (U) [Mass/Vol] Negative Normal Negative [facility] Comment on above: Order Comment: Speci men Type: URINE SPECIMENOrdering Facility: [facility] Address: [address] [place] [address] Performed By: #### 2 4356-8 ####[facility] LABORATORYCLIA [id number] [address] [place] RBC LM.HPF (Urine sed) [#/Area] 0-3 /HPF Normal 0-3 /HPF [facility] Comment on above: Order Comment: Speci men Type: URINE SPECIMENOrdering Facility: [facility] Address: [address] [place] [address] Performed By: #### 2 4356-8 ####[facility] LABORATORYCLIA [id number] [address] Specific gravity (U) [Rel density] 1.020 Normal 1.005-1.030 [facility] Comment on above: Order Comment: Speci men Type: URINE SPECIMENOrdering Facility: [facility] Address: [address] [place] [address] Performed By: #### 2 4356-8 ####KO LABORATORYCLIA [id number] [address] Urobilinogen Ql (U) 0.2 EU/dL Normal 0.2-1.0 EU/dL [facility] Comment on above: Order Comment: Speci men Type: URINE SPECIMENOrdering Facility: [facility] Address: [address] [place] [address] Performed By: #### 2 4356-8 ####KO LABORATORYCLIA [id number] [place] [address] [place] WBC LM.HPF (Urine sed) [#/Area] 0-5 /HPF Normal 0-5 /HPF [facility] Comment on above: Order Comment: Speci men Type: URINE SPECIMENOrdering Facility: [facility] Address: [address] [place] [address] Performed By: #### 2 4356-8 ####[facility] LABORATORYCLIA [id number] [place] [address] [place] XR CHEST 1V [...] osseous abnormality. IMPRESSION: No acute cardiopulmonary disease. Wafer Fab Operator: PSCMykel Transcribe Date/Time: Nov 15 2023 8:27P Dictated by : OLIVERIO NOLASCO MD This examination was interpreted and the report reviewed and electronically signed by: OLIVERIO NOLASCO MD on Nov 15 2023 8:31PM EST [id number] Normal [facility] aPTT PPPon 11-15-2023 aPTT Coag (PPP) [Time] 22.7 s Low 23.0-32.4 [facility] Comment on above: Order Comment: Speci men Type: BLOOD SPECIMENOrdering Facility: [facility] Address: [address] [place] [address] Performed By: #### 4 8065-7, 66763-5, 26412-3 ####[facility] LABORATORYCLIA [id number] [place] [address] [place] [address] BRAIN WO IVCONon 11-01-[address] BRAIN WO IVCON * * *Final Report* * * DATE OF EXAM: Nov 01 2023 3:05PM [facility] 0504 - CT BRAIN WO IVCON / [...] should be made on a neurological basis. Wafer Fab Operator: PSCB Transcribe Date/Time: Nov 01 2023 3:06P Dictated by : ERNESTO KLEIN MD This examination was interpreted and the report reviewed and electronically signed by: ERNESTO KLEIN MD on Nov 01 2023 3:11PM EST [id number] Normal [facility] Head WO contraston 2023 IMPRESSION: No CT evidence of acute intracranial abnormality/hemorrhage Mild degree supratentorial chronic microvascular ischemic changes. Axial image 10, focal area decreased attenuation right insular cortex most consistent with chronic microvascular ischemic changes. Decision to perform follow-up and/or further imaging should be made on a neurological basis. Wafer Fab Operator: KEYANA Transcribe Date/Time: Nov 01 2023 3:06P Dictated by : ERNESTO KLEIN MD This examination was interpreted and the report reviewed and electronically signed by: ERNESTO KLEIN MD on Nov 01 2023 3:11PM EST [facility] * * *Final Report* * * DATE OF EXAM: Nov 01 2023 3:05PM [facility] 0504 - CT BRAIN WO IVCON / [...] base and imaged soft tissues are unremarkable. [facility] Provider, [facility]/01/[facility]23 * * *Final Report* * * DATE OF EXAM: Nov 01 2023 3:05PM [facility] 0504 - CT BRAIN WO IVCON / [...] should be made on a neurological basis. Wafer Fab Operator: KEYANA Transcribe Date/Time: Nov 01 2023 3:06P Dictated by : ERNESTO KLEIN MD This examination was interpreted and the report reviewed and electronically signed by: ERNESTO KLEIN MD on Nov 01 2023 3:11PM EST [facility] Radiology Study observation (narrative) [facility] CT Head WO contrastOrdered B y: [facility] Provider on 11-01-2023 [facility] CBC W Auto Differential pane l (Bld)on 10-31-2023 Basophils (Bld) [#/Vol] 0.13 10*3/uL High [facility] Basophils/100 WBC (Bld) 1.2 % [facility] Differential cell count method Nom (Bld) Auto [facility] Eosinophils (Bld) [#/Vol] 0.34 10*3/uL NINF [facility] Eosinophils/100 WBC (Bld) 3.1 % [facility] Erythrocyte distribution width (RBC) [Ratio] 13.5 % 11.5 - 15.0 % [facility] Hematocrit (Bld) [Volume fraction] 41.9 % 36.0 - 46.0 % [facility] Hemoglobin (Bld) [Mass/Vol] 13.0 g/dL 11.5 - 15.5 g/dL [facility] Immature granulocytes (Bld) [#/Vol] 0.07 10*3/uL [facility] Immature granulocytes/100 WBC (Bld) 0.6 % [facility] Interpretation and review of laboratory results Abnormal [facility] Lymphocytes (Bld) [#/Vol] 4.05 10*3/uL High [facility] Lymphocytes/100 WBC (Bld) 37.4 % [facility] MCH (RBC) [Entitic mass] 28.8 pg 26.0 - 34.0 pg [facility] MCHC (RBC) [Mass/Vol] 31.0 g/dL 30.5 - 36.0 g/dL [facility] MCV (RBC) [Entitic vol] 92.7 fL 80.0 - 100.0 fL [facility] Monocytes (Bld) [#/Vol] 0.99 10*3/uL High [facility] Monocytes/100 WBC (Bld) 9.1 % [facility] Neutrophils (Bld) [#/Vol] 5.24 10*3/uL [facility] Neutrophils/100 WBC (Bld) 48.6 % [facility] Nucleated RBC (Bld) [#/Vol] [facility] Nucleated RBC/100 WBC (Bld) [Ratio] 0.0 % /100 WBC [facility] Platelet mean volume (Bld) [Entitic vol] 10.4 fL 9.0 - 12.7 fL [facility] Platelets (Bld) [#/Vol] 326 10*3/uL [facility] RBC (Bld) [#/Vol] 4.52 10*6/uL 3.90 - 5.2 0 m/uL [facility] WBC (Bld) [#/Vol] 10.82 10*3/uL [facility] CBC W Auto Differential pane l (Bld)on 10-15-2023 Basophils (Bld) [#/Vol] 0.11 10*3/uL High NINF [facility] Basophils/100 WBC (Bld) 1.1 % [facility] Differential cell count method Nom (Bld) Auto [facility] Eosinophils (Bld) [#/Vol] 0.30 10*3/uL [facility] Eosinophils/100 WBC (Bld) 3.0 % [facility] Erythrocyte distribution width (RBC) [Ratio] 13.4 % 11.5 - 15.0 % [facility] Hematocrit (Bld) [Volume fraction] 40.6 % 36.0 - 46.0 % [facility] Hemoglobin (Bld) [Mass/Vol] 12.7 g/dL 11.5 - 15.5 g/dL [facility] Immature granulocytes (Bld) [#/Vol] 0.07 10*3/uL [facility] Immature granulocytes/100 WBC (Bld) 0.7 % [facility] Interpretation and review of laboratory results Abnormal [facility] Lymphocytes (Bld) [#/Vol] 3.14 10*3/uL [facility] Lymphocytes/100 WBC (Bld) 31.7 % [facility] MCH (RBC) [Entitic mass] 29.4 pg 26.0 - 34.0 pg [facility] MCHC (RBC) [Mass/Vol] 31.3 g/dL 30.5 - 36.0 g/dL [facility] MCV (RBC) [Entitic vol] 94.0 fL 80.0 - 100.0 fL [facility] Monocytes (Bld) [#/Vol] 0.72 10*3/uL [facility] Monocytes/100 WBC (Bld) 7.3 % [facility] Neutrophils (Bld) [#/Vol] 5.55 10*3/uL [facility] Neutrophils/100 WBC (Bld) 56.2 % [facility] Nucleated RBC (Bld) [#/Vol] [facility] Nucleated RBC/100 WBC (Bld) [Ratio] 0.0 % /100 WBC [facility] Platelet mean volume (Bld) [Entitic vol] 10.4 fL 9.0 - 12.7 fL [facility] Platelets (Bld) [#/Vol] 353 10*3/uL [facility] RBC (Bld) [#/Vol] 4.32 10*6/uL 3.90 - 5.2 0 m/uL [facility] WBC (Bld) [#/Vol] 9.89 10*3/uL [facility] ICD REMOTE CHECKon 4 AV Delay Adaptive Paced Minimum (ms) 130 ms [facility] AV Delay Adaptive Sensed Minimum (ms) 80 ms [facility] AV Delay Adaptive Status ENABLED [facility] Battery Voltage 3.09 V [facility] Luis LV Pacing Amplitude (volts) 1.0 V [facility] Luis LV Pacing Polarity BI [facility] Luis LV Pacing Pulse Width (ms) 0.4 ms [facility] Luis RA Pacing Amplitude (volts) 3.5 V [facility] Luis RA Pacing Polarity BI [facility] Luis RA Pacing Pulse Width (ms) 0.4 ms [facility] Luis RA Sensing Amplitude (mvolts) 0.3 mV [facility] Luis RA Sensing Blanking Period (ms) 150 ms [facility] Luis RA Sensing Polarity BI [facility] Luis RA Sensing Refractory Period (ms) Auto [facility] Luis RV Pacing Amplitude (volts) 3.5 V [facility] Luis RV Pacing Polarity BI [facility] Luis RV Pacing Pulse Width (ms) 0.4 ms [facility] Luis RV Sensing Amplitude (mvolts) 0.3 mV [facility] Luis RV Sensing Blanking Period (ms) 230 ms [facility] Luis RV Sensing Polarity BI [facility] Detection Configuration (Vent) 1 - Zone [facility] ICD AFIB DetectionStatus ENABLED [facility] ICD ATAF DetectionInterval ms 350 ms [facility] ICD ATAF DetectionStatus ENABLED [facility] ICD FastVT DetectionStatus DISABLED [facility] ICD-ADLRATE_BPM 95 {beats}/min [facility] ICD-AMS EPISODES 171 {beats}/min [facility] ICD-ATP Episodes (Vent) 0 [facility] ICD-ATRIALFIBRILLATION 0 Cl [facility] ICD-Device Mfg MDT [facility] ICD-LEADIMPEDANCEATRIA L 589 ohm [facility] ICD-Percent Pacing (Atrial) 0.07 % [facility] ICD-Percent Pacing (Vent) 6.67 % [facility] ICD-PMT Intervention Enabled [facility] ICD-PVC Intervention Enabled [facility] ICD-Rate Modulation Acceleration Reaction 30 s [facility] ICD-Rate Modulation Deceleration Exercise [facility] ICD-Rate Modulation [place] 3 [facility] ICD-Rate Modulation Threshold Low [facility] ICD-Shocks Aborted (Vent) 0 [facility] RAO-FMHAWM-CDFQYPRFT 0 [facility] ICD-SHOCKSABORTED 0 [facility] ICD-SHOCKSDELIVEREDVEN TRICULAR 0 [facility] ICD-Ventricular Fibrillation 0 [facility] ICD-VVDELAY_MS 0 ms [facility] Lead Impedance (LV) 437 ohm [facility] Lead Impedance (RV) 380 ohm [facility] Lead Impedance High Voltage 73 ohm [facility] Lead1 Mfg MDT [facility] Lead2 Mfg MDT [facility] Lead3 Mfg MDT [facility] Location LV [facility] Location RA [facility] Location RV [facility] Lower Rate (bpm) 45 {beats}/min [facility] LV PACING % 97.85 % [facility] Max Sensor Rate (bpm) 120 {beats}/min [facility] MDT_PROG_TACHY_ZONE_DE TECTIONS_STATUS ENABLED [facility] Model [id number] [place] XT HF Quad ENERGY AUDITOR-D MRI [facility] Model 4798 Attain Stabilit y Quad MRI [facility] Model 5076 CapSureFix Novus [facility] Model 6935M Sprint Quattro Secure S [facility] Pacing Mode DDD [facility] Serial Number [id number] [facility] Serial Number [id number] [facility] Serial Number [id number] [facility] Serial Number [id number] [facility] Test Charge Energy 40.0 J [facility] Test Charge Time 0 s [facility] Therapy Status (Vent) Enabled [facility] Thresh LV Capture Amplitude (volts) 0.375 V [facility] Thresh LV Capture Duration (ms) 0.4 ms [facility] Thresh RA Capture Amplitude (volts) 0.375 V [facility] Thresh RA Capture Duration (ms) 0.4 ms [facility] Thresh RA Sensing Amplitude (mvolts) 5.0 mV [facility] Thresh RV Capture Amplitude (VOLTS) 0.625 V [facility] Thresh RV Capture Duration (MS) 0.4 ms [facility] Thresh RV Sensing Amplitude (MVOLTS) 24.5 mV [facility] Tracking Rate (bpm) 130 {beats}/min [facility] VF Zone Detection Interval 320 ms [facility] VF Zone Therapy Configuration 1 ATP(s) + 6 Shock(s) [facility] 09/28/2023 Formattin g of this note might [...] pacing <0.1%. total V pacing 97.9%. Adaptive ENERGY AUDITOR shows BiV pacing 6.8%, LV only pacing 93.2%. FOLLOW UP: Continue 3 month remote transmissions and yearly in-clinic interrogations. Amy Louis RN NOTE TO PROVIDERS: CARD Flowsheets contain detailed device programming and testing data. Paceart/Interrogation PDF can be found under CARDIAC DATA AND REPORT, Scanned Documents section. [facility] No Panel Informationon 09-27 BLANK _ [facility] ICD-ATRIALTACHYCARDIA 0 [facility] ICD-Fast Ventricular Tachycardia 0 [facility] Implant Date 2023 [facility] [facility] 09-25-2023 TIMN Telephone (MEPRAD) ----- SANDRA SCHMITZ ([id number]) 1945 [address] Date Time Provider Department 09/25/23 THUY AGUIRRE During your visit today, we recorded the following information about you: Thuy Aguirre, MELI.MEDICAL DEVICE SALES 09/25/2023 12:12 PM Signed Called and spoke [...] failure Dr. Wells 10/01 virtually. Thuy Aguirre APRN.MEDICAL DEVICE SALES Allergies As of Date: 09/25/2023 Noted Allergy [...] spine, cervical (more content not included)... Normal [facility] XR Foot - left AP and Latera l and obliqueon 09-13-2023 IMPRESSION: No acute osseous abnormality Wafer Fab Operator: KEYANA Transcribe Date/Time: Sep 13 2023 11:53A Dictated by : KIRA MALONE MD This examination was interpreted and the report reviewed and electronically signed by: KIRA MALONE MD on Sep 13 2023 11:55AM [facility] DIVISION OF RADIOLOGY * * *Final [...] erosions. IMPRESSION IMPRESSION: No acute osseous abnormality Wafer Fab Operator: PSCB Transcribe Date/Time: Sep 13 2023 11:53A Dictated by : KIRA MALONE MD This examination was interpreted and the report reviewed and electronically signed by: KIRA MALONE MD on Sep 13 2023 11:55AM EST [facility] Radiology Study observation (narrative) [facility] XR Foot - left AP and Latera l and obliqueOrdered By: Ccf Provider on 09-13-2023 [facility] CR - History AND Physicalon 08-29-2023 CR - History & Physical [facility] [address] [place] [address] CR - History Physical MR#: [id number] Acct: [id number] Name: SANDRA SCHMITZ Rep #: [id number] : 1945 78 From: Duran KEYS, RVT [...] Negative Advanced Directives Advanced Directives Power of Impregnating Helper: Yes Living Will: Yes Advance Directives Information [...] Date Josh Britton MD CC: Signed Normal [facility] UA DIP, URINE (POC)on 2023 BILIRUBIN UA (POCT) Negative Negative [facility] CLARITY UA (POCT) Clear [facility] COLOR UA ([facility]CT) Yellow [facility] GLUCOSE UA (POCT) Negative Negative mg/dL [facility] Hemoglobin Ql (U) Negative Negative [facility] KETONE UA (POCT) Negative Negative mg/dL [facility] LEUKOCYTES UA (POCT) Negative Negative [facility] NITRITE UA (POCT) Negative Negative [facility] PH UA (POCT) 6.5 4.5 - 8.0 [facility] Protein Ql (U) Negative Negative mg/dL [facility] SPECIFIC GRAVITY UA (POCT) 1.010 1.005 - 1.030 [facility] UROBILINOGEN UA (POCT) 0.2 E.U./dL Jeanette l E.U./dL [facility] ICD CLINIC CHECKon 4 AV Delay Adaptive Paced Minimum (ms) 100 ms [facility] AV Delay Adaptive Sensed Minimum (ms) 80 ms [facility] AV Delay Adaptive Status ENABLED [facility] Battery Voltage 3.11 V [facility] Luis LV Pacing Amplitude (volts) 2.5 V [facility] Luis LV Pacing Polarity BI [facility] Luis LV Pacing Pulse Width (ms) 0.4 ms [facility] Luis RA Pacing Amplitude (volts) 3.5 V [facility] Luis RA Pacing Polarity BI [facility] Luis RA Pacing Pulse Width (ms) 0.4 ms [facility] Luis RA Sensing Amplitude (mvolts) 0.3 mV [facility] Luis RA Sensing Blanking Period (ms) 150 ms [facility] Luis RA Sensing Polarity BI [facility] Luis RA Sensing Refractory Period (ms) Auto [facility] Luis RV Pacing Amplitude (volts) 3.5 V [facility] Luis RV Pacing Polarity BI [facility] Luis RV Pacing Pulse Width (ms) 0.4 ms [facility] Luis RV Sensing Amplitude (mvolts) 0.3 mV [facility] Luis RV Sensing Blanking Period (ms) 230 ms [facility] Luis RV Sensing Polarity BI [facility] Detection Configuration (Vent) 1 - Zone [facility] ICD AFIB DetectionStatus ENABLED [facility] ICD ATAF DetectionInterval ms 350 ms [facility] ICD ATAF DetectionStatus ENABLED [facility] ICD FastVT DetectionStatus DISABLED [facility] ICD-ADLRATE_BPM 95 {beats}/min [facility] ICD-AMS EPISODES 171 {beats}/min [facility] ICD-ATP Episodes (Vent) 0 [facility] ICD-ATRIALFIBRILLATION 0 [facility] ICD-Device Mfg MDT [facility] ICD-LEADIMPEDANCEATRIA L 551 ohm [facility] ICD-Percent Pacing (Atrial) 0.09 % [facility] ICD-Percent Pacing (Vent) 4.41 % [facility] ICD-PMT Intervention Enabled [facility] ICD-PVC Intervention Enabled [facility] ICD-Rate Modulation Acceleration Reaction 30 s [facility] ICD-Rate Modulation Deceleration Exercise [facility] ICD-Rate Modulation [place] 3 [facility] ICD-Rate Modulation Threshold Low [facility] ICD-Rhythm Normal Sinus Rhythm [facility] ICD-Shocks Aborted (Vent) 0 [facility] [id number] 0 [facility] ICD-SHOCKSABORTED 0 [facility] ICD-SHOCKSDELIVEREDVEN TRICULAR 0 [facility] ICD-Ventricular Fibrillation 0 [facility] ICD-VVDELAY_MS 0 ms [facility] Lead Impedance (LV) 418 ohm [facility] Lead Impedance (RV) 361 ohm [facility] Lead Impedance High Voltage 61 ohm [facility] Lead1 Mfg MDT [facility] Lead2 Mfg MDT [facility] Lead3 Mfg MDT [facility] Location LV [facility] Location RA [facility] Location RV [facility] Lower Rate (bpm) 45 {beats}/min [facility] LV PACING % 98.08 % [facility] Max Sensor Rate (bpm) 120 {beats}/min [facility] MDT_PROG_TACHY_ZONE_DE TECTIONS_STATUS ENABLED [facility] Model [id number] [place] XT HF Quad ENERGY AUDITOR-D MRI [facility] Model 4798 Attain Stabilit y Quad MRI SureMtan [facility] Model 5076 CapSureFix Novus [facility] Model 6935M Sprint Quattro Secure S [facility] Pacemaker Dependent? NO [facility] Pacing Mode DDD [facility] Serial Number [id number] [facility] Serial Number [id number] [facility] Serial Number [id number] [facility] Serial Number [id number] [facility] Test Charge Energy 40.0 J [facility] Test Charge Time 0 s [facility] Therapy Status (Vent) Enabled [facility] Thresh LV Capture Amplitude (volts) 0.75 V [facility] Thresh LV Capture Duration (ms) 0.40 ms [facility] Thresh RA Capture Amplitude (volts) 0.50 V [facility] Thresh RA Capture Duration (ms) 0.40 ms [facility] Thresh RA Sensing Amplitude (mvolts) 4.4 mV [facility] Thresh RV Capture Amplitude (VOLTS) 0.75 V [facility] Thresh RV Capture Duration (MS) 0.40 ms [facility] Thresh RV Sensing Amplitude (MVOLTS) 20.0 mV [facility] Tracking Rate (bpm) 130 {beats}/min [facility] VF Zone Detection Interval 320 ms [facility] VF Zone Therapy Configuration 1 ATP(s) + 6 Shock(s) [facility] No Panel Informationon 08-06 BLANK _ [facility] ICD-Fast Ventricular Tachycardia 0 [facility] Implant Date 2023 [facility] CBC W Auto Differential pane l (Bld)on 07-24-2023 Basophils (Bld) [#/Vol] 0.13 10*3/uL High <0.11 k/uL [facility] Basophils/100 WBC (Bld) 1.0 % [facility] Differential cell count method Nom (Bld) Auto [facility] Eosinophils (Bld) [#/Vol] 0.46 10*3/uL High <0.46 k/uL [facility] Eosinophils/100 WBC (Bld) 3.4 % [facility] Erythrocyte distribution width (RBC) [Ratio] 15.0 % 11.5 - 15.0 % [facility] Hematocrit (Bld) [Volume fraction] 40.8 % 36.0 - 46.0 % [facility] Hemoglobin (Bld) [Mass/Vol] 12.9 g/dL 11.5 - 15.5 g/dL [facility] Immature granulocytes (Bld) [#/Vol] 0.17 10*3/uL High <0.10 k/uL [facility] Immature granulocytes/100 WBC (Bld) 1.3 % [facility] Lymphocytes (Bld) [#/Vol] 3.09 10*3/uL 1.00 - 4.00 k/uL [facility] Lymphocytes/100 WBC (Bld) 23.0 % [facility] MCH (RBC) [Entitic mass] 29.9 pg 26.0 - 34.0 pg [facility] MCHC (RBC) [Mass/Vol] 31.6 g/dL 30.5 - 36.0 g/dL [facility] MCV (RBC) [Entitic vol] 94.7 fL 80.0 - 100.0 fL [facility] Monocytes (Bld) [#/Vol] 1.15 10*3/uL High <0.87 k/uL [facility] Monocytes/100 WBC (Bld) 8.6 % [facility] Neutrophils (Bld) [#/Vol] 8.45 10*3/uL High 1.45 - 7.50 k/uL [facility] Neutrophils/100 WBC (Bld) 62.7 % [facility] Nucleated RBC (Bld) [#/Vol] <0.01 k/uL [facility] Nucleated RBC/100 WBC (Bld) [Ratio] 0.0 /100 WBC [facility] Platelet mean volume (Bld) [Entitic vol] 10.8 fL 9.0 - 12.7 fL [facility] Platelets (Bld) [#/Vol] 230 10*3/uL 150 - 400 k/uL [facility] RBC (Bld) [#/Vol] 4.31 10*6/uL 3.90 - 5.2 0 m/uL [facility] WBC (Bld) [#/Vol] 13.45 10*3/uL High 3.70 - 11.00 k/uL [facility] Comprehensive metabolic 2000 panelon 07-24-2023 Albumin [Mass/Vol] 4.1 g/dL 3.9 - 4.9 g/dL [facility] ALP [Catalytic activity/Vol] 66 U/L 34 - 123 U/L [facility] ALT [Catalytic activity/Vol] 11 U/L 7 - 38 U/L [facility] Anion gap [Moles/Vol] 12 mmol/L 9 - 18 mmol/L [facility] AST [Catalytic activity/Vol] 19 U/L 13 - 35 U/L [facility] Bilirubin [Mass/Vol] 0.4 mg/dL 0.2 - 1 .3 mg/dL [facility] Calcium [Mass/Vol] 9.9 mg/dL 8.5 - 10. 2 mg/dL [facility] Chloride [Moles/Vol] 103 mmol/L 97 - 10 5 mmol/L [facility] CO2 [Moles/Vol] 26 mmol/L 22 - 30 mmol/L [facility] Creatinine [Mass/Vol] 1.08 mg/dL High 0.58 - 0.96 mg/dL [facility] Estimated Glomerular Filtration Rate 53 mL/min/1.73m Low >=60 mL/min/1.73 m [facility] Glucose [Mass/Vol] 89 mg/dL 74 - 99 mg/dL [facility] Potassium [Moles/Vol] 4.5 mmol/L 3.7 - 5.1 mmol/L [facility] Protein [Mass/Vol] 7.5 g/dL 6.3 - 8.0 g/dL [facility] Sodium [Moles/Vol] 141 mmol/L 136 - 144 mmol/L [facility] Urea nitrogen [Mass/Vol] 32 mg/dL High 7 - 21 mg/dL [facility] T3 FREE BLDon 07-24-2023 Free T3 [Mass/Vol] 2.0 pg/mL Low 2.3 - 4.1 pg/mL [facility] T4 FREE/FREE THYROXon 2023 Free T4 [Mass/Vol] 1.5 ng/dL 0.9 - 1.7 ng/dL [facility] TSH BLDon 07-24-2023 TSH Qn 2.430 m[IU]/L 0.270 - 4.200 mIU/L [facility] VITAMIN B12 BLOODon 07-24-19 Cobalamin (Vitamin B12) [Mass/Vol] 520 pg/mL 232 - 1,245 pg/mL [facility] CBC W Auto Differential pane l (Bld)on 07-18-2023 Basophils (Bld) [#/Vol] 0.10 10*3/uL Normal <0.11 [facility] Comment on above: Order Comment: Speci men Type: BLOOD SPECIMENOrdering Facility: [facility] Address: [address] [place] [address] Performed By: #### 5 7021-8 ####[facility] LABORATORYCLIA [id number] [place] [address] [place] Basophils/100 WBC (Bld) 1.1 % Normal [facility] Comment on above: Order Comment: Speci men Type: BLOOD SPECIMENOrdering Facility: [facility] Address: [address] [place] [address] Performed By: #### 5 7021-8 ####[facility] LABORATORYCLIA [id number] [place] [id number] [place] Differential cell count method Nom (Bld) Auto Normal [facility] Comment on above: Order Comment: Speci men Type: BLOOD SPECIMENOrdering Facility: [facility] Address: [address] [place] [address] Performed By: #### 5 7021-8 ####[facility] LABORATORYCLIA [id number] [place] [id number] [place] Eosinophils (Bld) [#/Vol] 0.20 10*3/uL Normal <0.46 [facility] Comment on above: Order Comment: Speci men Type: BLOOD SPECIMENOrdering Facility: [facility] Address: [address] [place] [address] Performed By: #### 5 7021-8 ####[facility] LABORATORYCLIA [id number] [place] [id number] [place] Eosinophils/100 WBC (Bld) 2.1 % Normal [facility] Comment on above: Order Comment: Speci men Type: BLOOD SPECIMENOrdering Facility: [facility] Address: [address] [place] [address] Performed By: #### 5 7021-8 ####[facility] LABORATORYCLIA [id number] [place] [address] [place] Erythrocyte distribution width (RBC) [Ratio] 15.1 % High 11.5-15.0 [facility] Comment on above: Order Comment: Speci men Type: BLOOD SPECIMENOrdering Facility: [facility] Address: [address] [place] [address] Performed By: #### 5 7021-8 ####[facility] LABORATORYCLIA [id number] [place] [address] [place] Hematocrit (Bld) [Volume fraction] 36.1 % Normal 36.0-46.0 [facility] Comment on above: Order Comment: Speci men Type: BLOOD SPECIMENOrdering Facility: [facility] Address: [address] [place] [address] Performed By: #### 5 7021-8 ####[facility] LABORATORYCLIA [id number] [place] [id number] [place] Hemoglobin (Bld) [Mass/Vol] 11.7 g/dL Normal 11.5-15.5 [facility] Comment on above: Order Comment: Speci men Type: BLOOD SPECIMENOrdering Facility: [facility] Address: [address] [place] [address] Performed By: #### 5 7021-8 ####[facility] LABORATORYCLIA [id number] [place] [address] [place] Immature granulocytes (Bld) [#/Vol] 0.05 10*3/uL Normal <0.10 [facility] Comment on above: Order Comment: Speci men Type: BLOOD SPECIMENOrdering Facility: [facility] Address: [address] [place] [address] Performed By: #### 5 7021-8 ####[facility] LABORATORYCLIA [id number] [place] [address] [place] Immature granulocytes/100 WBC (Bld) 0.5 % Normal [facility] Comment on above: Order Comment: Speci men Type: BLOOD SPECIMENOrdering Facility: [facility] Address: [address] [place] [address] Performed By: #### 5 7021-8 ####[facility] LABORATORYCLIA [id number] [place] [address] [place] Lymphocytes (Bld) [#/Vol] 3.38 10*3/uL Normal 1.00-4.00 [facility] Comment on above: Order Comment: Speci men Type: BLOOD SPECIMENOrdering Facility: [facility] Address: [address] [place] [address] Performed By: #### 5 7021-8 ####[facility] LABORATORYCLIA [id number] [address] [place] Lymphocytes/100 WBC (Bld) 36.1 % Normal [facility] Comment on above: Order Comment: Speci men Type: BLOOD SPECIMENOrdering Facility: [facility] Address: [address] [place] [address] Performed By: #### 5 7021-8 ####[facility] LABORATORYCLIA [id number] [place] [address] [place] MCH (RBC) [Entitic mass] 30.0 pg Normal 26.0-34.0 [facility] Comment on above: Order Comment: Speci men Type: BLOOD SPECIMENOrdering Facility: [facility] Address: [address] [place] [address] Performed By: #### 5 7021-8 ####[facility] LABORATORYCLIA [id number] [place] [id number] [place] MCHC (RBC) [Mass/Vol] 32.4 g/dL Normal 30.5-36.0 [facility] Comment on above: Order Comment: Speci men Type: BLOOD SPECIMENOrdering Facility: [facility] Address: [address] [place] [address] Performed By: #### 5 7021-8 ####[facility] LABORATORYCLIA [id number] [place] [id number] [place] MCV (RBC) [Entitic vol] 92.6 fL Normal 80.0-100.0 [facility] Comment on above: Order Comment: Speci men Type: BLOOD SPECIMENOrdering Facility: [facility] Address: [address] [place] [address] Performed By: #### 5 7021-8 ####[facility] LABORATORYCLIA [id number] [place] [address] [place] Monocytes (Bld) [#/Vol] 0.81 10*3/uL Normal <0.87 [facility] Comment on above: Order Comment: Speci men Type: BLOOD SPECIMENOrdering Facility: [facility] Address: [address] [place] [address] Performed By: #### 5 7021-8 ####[facility] LABORATORYCLIA [id number] [place] [id number] [place] Monocytes/100 WBC (Bld) 8.6 % Normal [facility] Comment on above: Order Comment: Speci men Type: BLOOD SPECIMENOrdering Facility: [facility] Address: [address] [place] [address] Performed By: #### 5 7021-8 ####[facility] LABORATORYCLIA [id number] [place] [id number] [place] Neutrophils (Bld) [#/Vol] 4.83 10*3/uL Normal 1.45-7.50 [facility] Comment on above: Order Comment: Speci men Type: BLOOD SPECIMENOrdering Facility: [facility] Address: [address] [place] [address] Performed By: #### 5 7021-8 ####[facility] LABORATORYCLIA [id number] [place] [id number] [place] Neutrophils/100 WBC (Bld) 51.6 % Normal [facility] Comment on above: Order Comment: Speci men Type: BLOOD SPECIMENOrdering Facility: [facility] Address: [address] [place] [address] Performed By: #### 5 7021-8 ####[facility] LABORATORYCLIA [id number] [place] [address] [place] Nucleated RBC (Bld) [#/Vol] 10*3/uL Normal <0.01 [facility] Comment on above: Order Comment: Speci men Type: BLOOD SPECIMENOrdering Facility: [facility] Address: [address] [place] [address] Performed By: #### 5 7021-8 ####[facility] LABORATORYCLIA [id number] [place] [address] [place] Nucleated RBC/100 WBC (Bld) [Ratio] 0.0 /100 WBC Normal [facility] Comment on above: Order Comment: Speci men Type: BLOOD SPECIMENOrdering Facility: [facility] Address: [address] [place] [address] Performed By: #### 5 7021-8 ####[facility] LABORATORYCLIA [id number] [place] [id number] [place] Platelet mean volume (Bld) [Entitic vol] 10.2 fL Normal 9.0-12.7 [facility] Comment on above: Order Comment: Speci men Type: BLOOD SPECIMENOrdering Facility: [facility] Address: [address] [place] [address] Performed By: #### 5 7021-8 ####[facility] LABORATORYCLIA [id number] [place] [id number] [place] Platelets (Bld) [#/Vol] 205 10*3/uL Normal 150-400 [facility] Comment on above: Order Comment: Speci men Type: BLOOD SPECIMENOrdering Facility: [facility] Address: [address] [place], [place] [address] Performed By: #### 5 7021-8 ####[facility] LABORATORYCLIA [id number] [place] [id number] [facility] RBC (Bld) [#/Vol] 3.90 10*6/uL Normal 3.90-5.20 [facility] Comment on above: Order Comment: Speci men Type: BLOOD SPECIMENOrdering Facility: [facility] Address: [address] [place] [address] Performed By: #### 5 7021-8 ####[facility] LABORATORYCLIA [id number] [place] [id number] [facility] WBC (Bld) [#/Vol] 9.37 10*3/uL Normal 3.70-11.00 [facility] Comment on above: Order Comment: Speci men Type: BLOOD SPECIMENOrdering Facility: [facility] Address: [address] [place] [address] Performed By: #### 5 7021-8 ####[facility] LABORATORYCLIA [id number] [place] [id number] [facility] CNDSon 07-18-2023 CNDS HNO ID: [id number] Author: ANGELICA SILVA MD Service: Hospital Medicine [...] (HCC) (POA: Yes) 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 (POA: Yes) Acute hypoxic respiratory failure (HCC) (POA: Unknown) Atrial fibrillation (HCC) (POA: Unknown) LBBB (left bundle branch block) (POA: Unknown) Presence of cardiac resynchronization therapy defibrillator (ENERGY AUDITOR-D) (POA: Unknown) Resolved Problems: * No resolved hospital problems. 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 OPERATIONS/PROCEDURE DURING THIS HOSPITALIZATION: Procedure(s) (LRB): INSERTION PERM IMPLANTABLE DEFIBRILLATOR SYSTEM, W/TRANSVENOUS LEAD(S) (N/A) INSERTION CORONARY SINUS/LT VENTRICULAR LEAD W/INITIAL INSERTION OF PACEMAKER/DEFIB GENERATOR (N/A) CONSULTS DURING HOSPITALIZATION: Treatment Team: Attending Provider: Angelica Silva MD Primary Service: , [facility] Consulting: Pili Wells MD Orders Placed This [...] to ausc (more content not included)... Normal [facility] Comprehensive metabolic 2000 panelon 07-18-2023 Albumin [Mass/Vol] 3.5 g/dL Low 3.9-4.9 [facility] Comment on above: Order Comment: Speci men Type: BLOOD SPECIMEN [facility] Address: [address] [place] [address] Performed By: #### 2 4321-2, 83317-6 #### [facility] CLIA [id number] [place] [address] [place] ALP [Catalytic activity/Vol] 52 U/L Normal 34-123 [facility] Comment on above: Order Comment: Speci men Type: BLOOD SPECIMEN [facility] Address: [address] [place] [address] Performed By: #### 2 4320-2, #### [facility] CLIA [id number] [address] [place] [address] [place] ALT [Catalytic activity/Vol] 18 U/L Normal 7-38 [facility] Comment on above: Order Comment: Speci men Type: BLOOD SPECIMEN [facility] Address: [address] [place] [address] Performed By: #### 2 2, #### [facility] CLIA [id number] [address] [place] [address] [place] Anion gap [Moles/Vol] 8 mmol/L Low 9-18 [facility] Comment on above: Order Comment: Speci men Type: BLOOD SPECIMEN [facility] Address: [address] [place] [address] Performed By: #### 2 4320-2, #### [facility] CLIA [id number] [address] [place] [address] [place] AST [Catalytic activity/Vol] 18 U/L Normal 13-35 [facility] Comment on above: Order Comment: Speci men Type: BLOOD SPECIMEN [facility] Address: [address] [place] [address] Performed By: #### 2 2, #### [facility] CLIA [id number] [address] [place] [address] [place] Bilirubin [Mass/Vol] 0.4 mg/dL Normal 0.2-1.3 [facility] Comment on above: Order Comment: Speci men Type: BLOOD SPECIMEN [facility] Address: [address] [place] [address] Performed By: #### 2 432-2, #### [facility] CLIA [id number] [address] [place] [address] [place] Calcium [Mass/Vol] 8.8 mg/dL Normal 8.5-10.2 [facility] Comment on above: Order Comment: Speci men Type: BLOOD SPECIMEN Ordering Facility: [facility] Address: [address] [place] [address] Performed By: #### 2 4321-2, #### [facility] CLIA [id number] [address] [place] [address] [place] Chloride [Moles/Vol] 105 mmol/L Normal 97-105 [facility] Comment on above: Order Comment: Speci men Type: BLOOD SPECIMEN Ordering Facility: [facility] Address: [address] [place] [address] Performed By: #### 2 4321-2, #### [facility] CLIA [id number] [address] [place] [address] [place] CO2 [Moles/Vol] 27 mmol/L Normal 22-30 [facility] Comment on above: Order Comment: Speci men Type: BLOOD SPECIMEN Ordering Facility: [facility] Address: [address] [place] [address] Performed By: #### 2 4321-2, #### [facility] CLIA [id number] [address] [place] [address] [place] Creatinine [Mass/Vol] 1.10 mg/dL High 0.58-0.96 [facility] Comment on above: Order Comment: Speci men Type: BLOOD SPECIMEN Ordering Facility: [facility] Address: [address] [place] [address] Performed By: #### 2 4321-2, #### [facility] CLIA [id number] [address] [place] [address] [place] Creatinine and Glomerular filtration rate.predicted panel (S/P/Bld) 52 mL/min/1.73m??? Low >=60 [facility] Comment on above: Order Comment: Speci men Type: BLOOD SPECIMEN Ordering Facility: [facility] Address: [address] [place] [address] Result Comment: Aaron mated Glomerular Filtration Rate [...] GFR. Performed By: #### 2 432-, #### [facility] CLIA [id number] [place] [address] [place] Glucose [Mass/Vol] 95 mg/dL Normal 74-99 [facility] Comment on above: Order Comment: Lenard jesus Type: BLOOD SPECIMEN Ordering Facility: [facility] Address: [address] [place] [address] Result Comment: The [place] Diabetes Association (ADA) provides guidance for cutoff [...] Standards of Medical Care in Diabetes 2016, [place] [employer] Association. Diabetes Care. 2016.39(Suppl 1). Performed By: #### 2 4320-06, #### [facility] CLIA [id number] [place] [address] [place] Potassium [Moles/Vol] 4.0 mmol/L Normal 3.7-5.1 [facility] Comment on above: Order Comment: Lenard jesus Type: BLOOD SPECIMEN Ordering [facility]: [facility] Address: [address] [place] [address] Performed By: #### 2 432-, #### [facility] CLIA [id number] [address] [place] [address] [place] Protein [Mass/Vol] 6.2 g/dL Low 6.3-8.0 [facility] Comment on above: Order Comment: Speci men Type: BLOOD SPECIMEN Ordering Facility: [facility] Address: [address] [place] [address] Performed By: #### 2 4321-2, #### [facility] CLIA [id number] [address] [place] [address] [place] Sodium [Moles/Vol] 140 mmol/L Normal 136-144 [facility] Comment on above: Order Comment: Speci men Type: BLOOD SPECIMEN Ordering Facility: [facility] Address: [address] [place] [address] Performed By: #### 2 4321-2, #### [facility] CLIA [id number] [address] [place] [address] [place] Urea nitrogen [Mass/Vol] 36 mg/dL High 7-21 [facility] Comment on above: Order Comment: Speci men Type: BLOOD SPECIMEN Ordering Facility: [facility] Address: [address] [place] [address] Performed By: #### 2 4321-2, #### [facility] CLIA [id number] [address] [place] [address] [place] Magnesium SerPl-mCncon 07-17 Magnesium [Mass/Vol] 2.3 mg/dL Normal 1.7-2.3 [facility] Comment on above: Order Comment: Speci men Type: BLOOD SPECIMEN Ordering Facility: [facility] Address: [address] [place] [address] Performed By: #### 5 8410-2 #### [facility] CLIA [id number] [address] [place] [address] [place] NURSING PROGon 07-18-2023 NURSING PROG HNO ID: [id number] Author: CHON RAMSEY RN Service: Nursing Author [...] daughter is here to take her home. [facility] ALLIED HEALTHon 07-17-2023 ALLIED HEALTH HNO ID: [id number] Author: ANAND AMIN RT(R) Service: ? Author [...] PATIENT PRESENTS WITH AN IMPLANTABLE OR ATTACHED TIME ANALYSIS CLERK: No RADIOLOGY DEPARTMENT: General X-ray: Exam(s) Completed: Chest X-Ray PERIPHERAL IV DATA: Not applicable SIGNED BY: RT Cindy(R) July 17, 2023 10:02 AM [facility] ANES POSTPROC EVALon 024 ANES POSTPROC EVAL HNO ID: [id number] Author: GRISELDA SALMERON MD Service: Anesthesiology Author [...] July 17, 2023 TIME: 7:14 AM CSN: [id number] Normal [facility] Basic metabolic 2000 panelon 07-17-2023 Anion gap [Moles/Vol] 9 mmol/L Normal 9-18 [facility] Comment on above: Order Comment: Speci edin Type: BLOOD SPECIMEN Ordering [facility] Address: [address] [place] [address] Performed By: #### 2 4321-2 #### [facility] CLIA [id number] [address] [place] [address] [place] Calcium [Mass/Vol] 9.0 mg/dL Normal 8.5-10.2 [facility] Comment on above: Order Comment: Lenard jesus Type: BLOOD SPECIMEN Ordering Facility: [facility] Address: [address] [place] [address] Performed By: #### 2 4321-2 #### [facility] CLIA [id number] [address] [place] [address] [place] Chloride [Moles/Vol] 103 mmol/L Normal 97-105 [facility] Comment on above: Order Comment: Speci men Type: BLOOD SPECIMEN Ordering Facility: [facility] Address: [address] [place] [address] Performed By: #### 2 4321-2 #### [facility] CLIA [id number] [address] [place] [address] [place] CO2 [Moles/Vol] 26 mmol/L Normal 22-30 [facility] Comment on above: Order Comment: Speci men Type: BLOOD SPECIMEN Ordering Facility: [facility] Address: [address] [place] [address] Performed By: #### 2 4321-2 #### [facility] CLIA [id number] [address] [place] [address] Creatinine [Mass/Vol] 0.98 mg/dL High 0.58-0.96 [facility] Comment on above: Order Comment: Speci men Type: BLOOD SPECIMEN Ordering Facility: [facility] Address: [address] [place] [address] Performed By: #### 2 4321-2 #### [facility] CLIA [id number] [address] [place] [address] Creatinine and Glomerular filtration rate.predicted panel (S/P/Bld) 60 mL/min/1.73m??? Normal >=60 [facility] Comment on above: Order Comment: Speci men Type: BLOOD SPECIMEN Ordering Facility: [facility] Address: [address] [place] [address] Result Comment: Aaron mated Glomerular Filtration Rate [...] GFR. Performed By: #### 2 4321-2 #### [facility] CLIA [id number] [address] [place] [address] [place] Glucose [Mass/Vol] 120 mg/dL High 74-99 [facility] Comment on above: Order Comment: Lenard jesus Type: BLOOD SPECIMEN Ordering Facility: [facility] Address: [address] [place] [address] Result Comment: The [place] Diabetes Association (ADA) provides guidance for cutoff [...] Standards of Medical Care in Diabetes 2016, [place] [employer]. Diabetes Care. 2016.39(Suppl 1). Performed By: #### 2 4321-2 #### [facility] CLIA [id number] [address] [place] [address] [place] Potassium [Moles/Vol] 4.6 mmol/L Normal 3.7-5.1 [facility] Comment on above: Order Comment: Lenard jesus Type: BLOOD SPECIMEN Ordering Facility: [facility] Address: [address] [place] [address] Performed By: #### 2 4321-2 #### [facility] CLIA [id number] [address] [place] [address] [place] Sodium [Moles/Vol] 138 mmol/L Normal 136-144 [facility] Comment on above: Order Comment: Ernestinei men Type: BLOOD SPECIMEN Ordering Facility: [facility] Address: [address] [place] [address] Performed By: #### 2 4321-2 #### [facility] CLIA [id number] [address] [place] [address] [place] Urea nitrogen [Mass/Vol] 33 mg/dL High 7-21 [facility] Comment on above: Order Comment: Ernestinei men Type: BLOOD SPECIMEN Ordering Facility: [facility] Address: [address] [place] [address] Performed By: #### 2 4321-2 #### [facility] CLIA [id number] [address] [place] [address] [place] CBC panel Auto (Bld)on 07-16 Erythrocyte distribution width (RBC) [Ratio] 14.6 % Normal 11.5-15.0 [facility] Comment on above: Order Comment: Speci men Type: BLOOD SPECIMEN Ordering Facility: [facility] Address: [address] [place] [address] Performed By: #### 5 8410-2 #### [facility] CLIA [id number] [address] [place] [address] OF [place] Hematocrit (Bld) [Volume fraction] 38.8 % Normal 36.0-46.0 [facility] Comment on above: Order Comment: Speci men Type: BLOOD SPECIMEN Ordering Facility: [facility] Address: [address] [place] [address] Performed By: #### 5 8410-2 #### [facility] CLIA [id number] [address] [place] [address] [place] Hemoglobin (Bld) [Mass/Vol] 12.8 g/dL Normal 11.5-15.5 [facility] Comment on above: Order Comment: Speci men Type: BLOOD SPECIMEN Ordering Facility: [facility] Address: [address] [place] [address] Performed By: #### 5 8410-2 #### [facility] CLIA [id number] [address] [place] [address] [place] MCH (RBC) [Entitic mass] 29.8 pg Normal 26.0-34.0 [facility] Comment on above: Order Comment: Speci men Type: BLOOD SPECIMEN Ordering Facility[facility] Address: [address] [place] [address] Performed By: #### 5 8410-2 #### [facility] CLIA [id number] [address] [place] [address] [place] MCHC (RBC) [Mass/Vol] 33.0 g/dL Normal 30.5-36.0 [facility] Comment on above: Order Comment: Speci men Type: BLOOD SPECIMEN Ordering Facility: [facility] Address: [address] [place] [address] Performed By: #### 5 8410-2 #### [facility] CLIA [id number] [address] [place] [address] [place] MCV (RBC) [Entitic vol] 90.4 fL Normal 80.0-100.0 [facility] Comment on above: Order Comment: Speci men Type: BLOOD SPECIMEN Ordering Facility: [facility] Address: [address] [place] [address] Performed By: #### 5 8410-2 #### [facility] CLIA [id number] [address] [place] [address] [place] Nucleated RBC (Bld) [#/Vol] 10*3/uL Normal <0.01 [facility] Comment on above: Order Comment: Speci men Type: BLOOD SPECIMEN Ordering Facility: [facility] Address: [address] [place] [address] Performed By: #### 5 8410-2 #### [facility] CLIA [id number] [address] [place] [address] [place] Platelet mean volume (Bld) [Entitic vol] 9.9 fL Normal 9.0-12.7 [facility] Comment on above: Order Comment: Speci men Type: BLOOD SPECIMEN Ordering Facility[facility] Address: [address] [place] [address] Performed By: #### 5 8410-2 #### [facility] CLIA [id number] [address] [place] [address] [place] Platelets (Bld) [#/Vol] 266 10*3/uL Normal 150-400 [facility] Comment on above: Order Comment: Speci men Type: BLOOD SPECIMEN Ordering Facility[facility] Address: [address] [place] [address] Performed By: #### 5 8410-2 #### [facility] CLIA [id number] [address] [place] [address] [place] RBC (Bld) [#/Vol] 4.29 10*6/uL Normal 3.90-5.20 [facility] Comment on above: Order Comment: Speci men Type: BLOOD SPECIMEN Ordering Facility: [facility] Address: [address] [place] [address] Performed By: #### 5 8410-2 #### [facility] CLIA [id number] [address] [place] [address] [place] WBC (Bld) [#/Vol] 11.00 10*3/uL Normal 3.70-11.00 [facility] Comment on above: Order Comment: Speci men Type: BLOOD SPECIMEN Ordering Facility: [facility] Address: [address] [place] [address] Performed By: #### 5 8410-2 #### [facility] CLIA [id number] [facility] CNPNon 07-17-2023 CNPN Telephone (FVPRAD) ----- SANDRA SCHMITZ ([id number]) 1945 F [facility]* Date Time Provider Department 07/17/23 MORENITA HILL FVFILIBERTO During your visit today, we recorded the following information about you: Morenita Hill APRN.MEDICAL DEVICE SALES 07/17/2023 11:05 AM Signed Please call patient to arrange for appointment with EP ROSEMARY or Dr. Wellington with device check immediately prior at [facility] office. If we could coordinate this for same day she is seeing Dr. Wells, that would be great, in the next ~2 weeks. Thank you! Morenita Hill APRN.MEDICAL DEVICE SALES Allergies As of Date: 07/17/2023 Noted Allergy [...] right [M19.071] 08/02/2022 Coronary artery disease involving united ke[place]owah lopez*08/02/2022 Vitamin D deficiency [E55.9] 08/02/2022 Somatic [...] respiratory failure (more content not included)... Normal [facility] CONSULT PROGon 07-17-2023 CONSULT PROG HNO ID: [id number] Author: MORENITA HILL APRN.MEDICAL DEVICE SALES Service: Electrophysiology Author Type: Nurse Practitioner Type: Consult Progress Note Filed: 07/17/2023 11:02 Note Text: [facility]ARD[facility]IC[facility] PROGRESS NOTE PRIMARY SERVICE: 5, Fv HOSPITAL DAY: # 4 INTERVAL HISTORY POD #1 s/p MDT ENERGY AUDITOR-D for primary prevention in the setting of [...] Chronic, non-ischemic HFrEF with LBBB s/p MDT ENERGY AUDITOR-D POD #1 s/p MDT ENERGY AUDITOR-D, reports feeling fatigued, but overall feeling well. [...] week follow up with EP ROSEMARY at [facility] office with device check prior. Patient may be discharged from EP perspective. Case to be discussed with staff, Dr. Muro. Morenita Hill APRN.MEDICAL DEVICE SALES July 17, 2023 10:55 AM EP Pager: [phone] Normal [facility] CONSULT PROG HNO ID: [id number] Author: PILI WELLS MD Service: Cardiovascular Medicine [...] 0.98* 1.04* 0.99* GLUC 120* 94 95 ALESSOI High Sensitivity 24 07/10/2023 ALESSIO High Sensitivity [...] (H) 4.3 - 5.6 % Final Comment: [place] Diabetes Association guidelines indicate that patients with [...] On low doses of GDMT LBBB: s/p ENERGY AUDITOR-D 07/16/23 Non-obstructive CAD: stable, ischemic testing recently with no ischemia or infarction. PLAN/RECOMMENDATIONS: GDMT: continue low dose entresto, start toprol XL 12.5mg today. Start PO lasix 20mg daily. Benedict (more content not included)... Normal [facility] ECG COMPLETEon 07-17-2023 ECG COMPLETE Ventricular Rate : 5 4 BPM Atrial Rate : 53 BPM P-R Interval : 133 ms QRS Duration : 133 ms Q-T Interval : 464 ms QTC Calculation(Bazett) : 440 ms Calculated P [place] : 13 degrees Calculated R [place] : -66 degrees Calculated T [place] : 19 degrees Atrial-sensed ventricular-paced complexes Abnormal ECG Confirmed by ROSALIA WARNER MD ([id number]) on 08/23/2023 1:01:26 PM NAME : SANDRA SCHMITZ PID : [id number] : 1945 Gender : Female Race : ORD : [id number] Procedure Date : Jul 17 2023 08:44:51 Edit Date : Aug 23 2023 13:01:29 Diagnosis: Atrial-sensed ventricular-paced complexes Abnormal ECG Confirmed by ROSALIA WARNER MD ([id number]) on 08/23/2023 1:01:26 PM Test Reason : Post-OP Location : [address] : [address] Overread By : ROSALIA WARNER MD Edited By : ROSALIA WARNER MD Referred By : REMINGTON CAI Acquired by : WILFREDO THOMPSON [facility] NURSING PROGon 07-17-2023 NURSING PROG HNO ID: [id number] Author: CHON RAMSEY, RN Service: Nursing Author [...] MD Shira. Hold lasix 20mg Discharge cancelled. [facility] THERAPY NTon 07-17-2023 THERAPY NT HNO ID: [id number] Author: ZORAN HILL, PT, DPT Service: Physical Therapy Author Type: Physical Therapist Type: Therapy (PT/OT/Speech/Resp) Filed: 07/17/2023 09:00 Note Text: Physical Therapy Treatment Summary SERVICE DATE: 07/17/2023 SERVICE TIME: 08 to 0844 ROOM: [place] [address] PT 6 Clicks Score: 22 DISCHARGE RECOMMENDATIONS [...] CURRENT HOSPITAL COURSE Pt initially admitted to [place] for acute on chronic HFrEF. She was stabilized with IV diuresis however course complicated by hypotension and bradycardia. She was transferred to [facility] for biventricular pacer defibrillator placement Relevant Past Medical History: HFrEF, LBBB, hypothyroidism HOME LIVING Patient Lives With: Family (pt lives with her dtr in a 1 story home) Assistance Available: Part-Time (pt reports that dtr works from home and Sunday typically, but company has been flexible and may allow her to network consultant upon pt's d/c for first week) Entry [...] Unsteadiness on feet TREATMENT INTERVENTIONS Gait Training (61277), Therapeutic Activity (76012) Timed Code Treatment (minutes): 38 Skilled Treatment [...] Toward [place] (more content not included)... Normal [facility] Vancomycin [place] SerPl-mCncon 07-17-2023 Vancomycin random [Mass/Vol] 9.8 ug/mL Low 10.0-20.0 [facility] Comment on above: Order Comment: Speci men Type: BLOOD SPECIMEN [facility] Address: [address] [place] [id number] Result Comment: Refe rence ranges and high/low indicator flags are provided as general guidelines only. The treating physician must determine appropriate target levels/dosing based on the specific clinical situation. Performed By: #### 4 091-5 #### [facility] CLIA [id number] [place] [address] [place] XR CHEST 2V [...] Unremarkable. IMPRESSION: Cardiomegaly. No acute process seen Wafer Fab Operator: KEYANA Transcribe Date/Time: Jul 17 2023 10:35A Dictated by : FABIAN BRODERICK MD This examination was interpreted and the report reviewed and electronically signed by: FABIAN BRODERICK MD on Jul 17 2023 10:35AM EST [id number] [facility] ANES PRE-OPon 2023 ANES PRE-OP HNO ID: [id number] Author: GRISELDA SALMERON MD Service: Anesthesiology Author [...] failure (HCC) (+) 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 (+) LBBB (left [...] and consent discussed: yes. Patient / Responsible Green Party agrees to proceed: yes Patient / Surrogate [...] July 15 (more content not included)... Normal [facility] Basic metabolic 2000 panelon 2023 Anion gap [Moles/Vol] 17 mmol/L Normal 9-18 [facility] Comment on above: Order Comment: Speci men Type: BLOOD SPECIMEN [facility] Address: [address] [place] [address] Performed By: #### 2 4321-2, #### [facility] CLIA [id number] [address] [place] [address] [place] Calcium [Mass/Vol] 9.1 mg/dL Normal 8.5-10.2 [facility] Comment on above: Order Comment: Speci men Type: BLOOD SPECIMEN [facility] Address: [address] [place] [address] Performed By: #### 2 4320-2, #### [facility] CLIA [id number] [address] [place] [address] [place] Chloride [Moles/Vol] 105 mmol/L Normal 97-105 [facility] Comment on above: Order Comment: Speci men Type: BLOOD SPECIMEN [facility] Address: [address] [place] [address] Performed By: #### 2 2, #### [facility] CLIA [id number] [address] [place] [address] [place] CO2 [Moles/Vol] 21 mmol/L Low 22-30 [facility] Comment on above: Order Comment: Speci men Type: BLOOD SPECIMEN [facility] Address: [address] [place] [address] Performed By: #### 2 2, #### [facility] CLIA [id number] [address] [place] [address] [place] Creatinine [Mass/Vol] 1.04 mg/dL High 0.58-0.96 [facility] Comment on above: Order Comment: Speci men Type: BLOOD SPECIMEN [facility] Address: [address] [place] [address] Performed By: #### 2 2, #### [facility] CLIA [id number] [address] [place] [address] [place] Creatinine and Glomerular filtration rate.predicted panel (S/P/Bld) 56 mL/min/1.73m??? Low >=60 [facility] Comment on above: Order Comment: Speci men Type: BLOOD SPECIMEN Order[facility] Facility[facility] Address: [address] [place] [address] Result Comment: Aaron mated Glomerular Filtration Rate [...] GFR. Performed By: #### 2 4320-, #### [facility] CLIA [id number] [place] [address] [place] Glucose [Mass/Vol] 94 mg/dL Normal 74-99 [facility] Comment on above: Order Comment: Lenard jesus Type: BLOOD SPECIMEN Ordering Facility: [facility] Address: [address] [place] [address] Result Comment: The [place] Diabetes Association (ADA) provides guidance for cutoff [...] Standards of Medical Care in Diabetes 2016, [place] [employer]. Diabetes Care. 2016.39(Suppl 1). Performed By: #### 2 4320-06, #### [facility] CLIA [id number] [address] [place] [address] [place] Potassium [Moles/Vol] 4.0 mmol/L Normal 3.7-5.1 [facility] Comment on above: Order Comment: Lenard jesus Type: BLOOD SPECIMEN Order[facility] Facility[facility] Address: [address] [place] [address] Performed By: #### 2 4320-, #### [facility] CLIA [id number] [address] [place] [address] [place] Sodium [Moles/Vol] 143 mmol/L Normal 136-144 [facility] Comment on above: Order Comment: Speci men Type: BLOOD SPECIMEN Order[facility] Address: [address] [place] [address] Performed By: #### 2 4321-2, #### [facility] CLIA [id number] [address] [place] [id number] [place] Urea nitrogen [Mass/Vol] 39 mg/dL High 7-21 [facility] Comment on above: Order Comment: Speci men Type: BLOOD SPECIMEN [facility]ing Facility[facility] Address: [address] [place] [address] Performed By: #### 2 4321-2, #### [facility] CLIA [id number] [facility] CASE MGT INIT ASSESon 2023 CASE MGT INIT ASSES HNO ID: [id number] Author: SETELA BRIONES RN Service: ? Author Type: Registered [...] Current Advance Directive: Health Care Power of Impregnating Helper;Living Will In Chart: No Current Living Arrangements [...] None Discharge Planning Patient Goal(s): General wellness [place] of Choice Explained: [place] of Choice Given: No Are you interested [...] Discharge Plan: Pt getting pacemaker. 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 Dtr Julia lives with her. SIGNATURE: Estela Briones RN PATIENT NAME: Sandra Schmitz DATE: 2023 TIME: 12:24 PM CONTACT #: [phone] [facility] CONSULTon 2023 CONSULT HNO ID: [id number] Author: PILI WELLS MD Service: Cardiovascular Medicine [...] no ischemia or infarction. PLAN/RECOMMENDATIONS: Agree with ENERGY AUDITOR, planning for today. Can likely transition to PO lasix 40mg daily starting tomorrow. GDMT: continue low dose entresto, post ENERGY AUDITOR placement can add toprol XL 12.5mg daily. Re-evaluate tomorrow post ENERGY AUDITOR for additional medications if possible. 2L fluid [...] or on weekends. [place] [phone]; [place] [phone] Pili Wells MD Advanced Heart Failure and Transplant [facility] [place] [address] Appointment: [phone] ----- --- SERVICE DATE: 2023 SERVICE TIME: 10:00AM CONSULTING PHYSICIAN: pili wells PCP: Mandeep Houser DO ATTENDING: Angelica Silva MD REASON FOR CONSULT: Heart Failure CHIEF COMPLAINT: Bradycardia [R00.1] HISTORY OF PRESENT ILLNESS: Ms. Schmitz is a 77 year old female who presents for decompensated HF and EP eval for ENERGY AUDITOR. Sandra Schmitz has a pmhx of non-ischemic CM, HTN, Hypothyroidism, LBBB, non-obstructive CAD who is transferred to for decompensated HF and EP eval for ENERGY AUDITOR. Ns, Nadir reports that she has been [...] went to the hospital. On arrival to [facility] she was volume up, hypotensive. She was [...] on chronic systolic CHF (congestive heart failure) ([facility]) 05/03/2020 Aspiration pneumonia ([facility]) 05/30/2020 Chest pain 05/03/2020 Chest pressure 01/23/2013 Chronic diastolic congestive heart failure ([facility]) 02/14/2021 Clostridium difficile diarrhea 09/28/2020 Complete uterovaginal prolapse Cystocele, midline Essential hypertension 06/14/2020 Homozygous Factor V Leiden mutation ([facility]) 05/03/2020 Hypothyroidism IBS (irritable bowel syndrome) 01/23/2013 [...] Disease Father (more content not included)... Normal [facility] Magnesium SerPl-mCncon 07-15 Magnesium [Mass/Vol] 2.2 mg/dL Normal 1.7-2.3 [facility] Comment on above: Order Comment: Speci men Type: BLOOD SPECIMEN [facility]ing Facility[facility] Address: [address] [place] [address] Performed By: #### 2 4321-2, 90596-9 #### [facility] CLIA [id number] [place] NURSING PROGon 2023 NURSING PROG HNO ID: [id number] Author: ELEONORA ALVARADO RN Service: Nursing Author [...] note was completed by: Eleonora Alvarado Normal [facility] NURSING PROG HNO ID: [id number] Author: CHON RAMSEY RN Service: Nursing Author Type: Registered Nurse Type: Nursing Progress Note Filed: 2023 08:57 Note Text: Daily note: 0800: per MD Shira hold pt morning dose of IV lasix. Aware subq heparin held for procedure. Normal [facility] CBC panel Auto (Bld)on 07-14 Erythrocyte distribution width (RBC) [Ratio] 14.7 % Normal 11.5-15.0 [facility] Comment on above: Order Comment: Speci men Type: BLOOD SPECIMENOrdering Facility: [facility] Address: [facility] [place] [address] Performed By: #### 5 8410-2 ####[facility] LABORATORYCLIA [id number] [address] [place] Hematocrit (Bld) [Volume fraction] 38.7 % Normal 36.0-46.0 [facility] Comment on above: Order Comment: Speci men Type: BLOOD SPECIMENOrdering Facility: [facility] Address: [address] [place] [address] Performed By: #### 5 8410-2 ####[facility]IA [id number] [address] [place] Hemoglobin (Bld) [Mass/Vol] 12.7 g/dL Normal 11.5-15.5 [facility] Comment on above: Order Comment: Speci men Type: BLOOD SPECIMENOrdering Facility: [facility] Address: [address] [place] [address] Performed By: #### 5 8410-2 ####[facility]ORYCLIA [id number] [address] [place] MCH (RBC) [Entitic mass] 29.7 pg Normal 26.0-34.0 [facility] Comment on above: Order Comment: Speci men Type: BLOOD SPECIMENOrdering Facility: [facility] Address: [address] [place] [address] Performed By: #### 5 8410-2 ####[facility] LABORATORYCLIA [id number] [address] [place] [facility] MCHC (RBC) [Mass/Vol] 32.8 g/dL Normal 30.5-36.0 [facility] Comment on above: Order Comment: Speci men Type: BLOOD SPECIMENOrdering Facility: [facility] Address: [address] [place] [address] Performed By: #### 5 8410-2 ####[facility]IA [id number] [address] [place] MCV (RBC) [Entitic vol] 90.6 fL Normal 80.0-100.0 [facility] Comment on above: Order Comment: Speci men Type: BLOOD SPECIMENOrdering Facility: [facility] Address: [address] [place] [address] Performed By: #### 5 8410-2 ####[facility]ORYCLIA [id number] [place] [address] [place] Nucleated RBC (Bld) [#/Vol] 10*3/uL Normal <0.01 [facility] Comment on above: Order Comment: Speci men Type: BLOOD SPECIMENOrdering Facility: [facility] Address: [address] [place] [address] Performed By: #### 5 8410-2 ####[facility] LABORATORYCLIA [id number] [place] [address] [place] Platelet mean volume (Bld) [Entitic vol] 10.2 fL Normal 9.0-12.7 [facility] Comment on above: Order Comment: Speci men Type: BLOOD SPECIMENOrdering Facility: [facility] Address: [address] [place] [address] Performed By: #### 5 8410-2 ####[facility] LABORATORYCLIA [id number] [place] [address] [place] Platelets (Bld) [#/Vol] 280 10*3/uL Normal 150-400 [facility] Comment on above: Order Comment: Speci men Type: BLOOD SPECIMENOrdering Facility: [facility] Address: [address] [place] [address] Performed By: #### 5 8410-2 ####[facility] LABORATORYCLIA [id number] [place] [address] [place] RBC (Bld) [#/Vol] 4.27 10*6/uL Normal 3.90-5.20 [facility] Comment on above: Order Comment: Speci men Type: BLOOD SPECIMENOrdering Facility: [facility] Address: [address] [place] [address] Performed By: #### 5 8410-2 ####[facility] LABORATORYCLIA [id number] [place] [address] [place] WBC (Bld) [#/Vol] 7.64 10*3/uL Normal 3.70-11.00 [facility] Comment on above: Order Comment: Speci men Type: BLOOD SPECIMENOrdering Facility: [facility] Address: [address] [place] [address] Performed By: #### 5 8410-2 ####[facility]ORY[facility]IA [id number] [place] [address] [place] Comprehensive metabolic 2000 panelon 07-15-2023 Albumin [Mass/Vol] 3.7 g/dL Low 3.9-4.9 [facility] Comment on above: Order Comment: Speci men Type: BLOOD SPECIMEN [facility] Address: [address] [place] [address] Performed By: #### 1 9123-9, 67790-9 #### [facility] CLIA [id number] [address] [place] [address] [place] ALP [Catalytic activity/Vol] 51 U/L Normal 34-123 [facility] Comment on above: Order Comment: Speci men Type: BLOOD SPECIMEN [facility] Address: [address] [place] [address] Performed By: #### 1 9123-9, 00767-7 #### [facility] CLIA [id number] [address] [place] [address] [place] ALT [Catalytic activity/Vol] Normal [facility] Comment on above: Order Comment: Speci men Type: BLOOD SPECIMEN [facility] Address: [address] [place] [address] Result Comment: Unab le to assay due to interference from hemolysis. Suggest reorder as clinically indicated. Performed By: #### 1 9123-9, 24399-2 #### [facility] CLIA [id number] [address] [place] [address] [place] Anion gap [Moles/Vol] 13 mmol/L Normal 9-18 [facility] Comment on above: Order Comment: Speci men Type: BLOOD SPECIMEN [facility] Address: [address] [place] [address] Performed By: #### 1 9123-9, 34814-5 #### [facility] CLIA [id number] [address] [place] [address] [place] AST [Catalytic activity/Vol] Normal [facility] Comment on above: Order Comment: Speci men Type: BLOOD SPECIMEN [facility] Address: [address] [place] [address] Result Comment: Unab le to assay due to interference from hemolysis. Suggest reorder as clinically indicated. Performed By: #### 1 23-9, #### [facility] CLIA [id number] [address] [place] [address] [place] Bilirubin [Mass/Vol] 0.7 mg/dL Normal 0.2-1.3 [facility] Comment on above: Order Comment: Speci men Type: BLOOD SPECIMEN [facility] Address: [address] [place] [address] Performed By: #### 1 9123-01, #### [facility] CLIA [id number] [address] [place] [address] [place] Calcium [Mass/Vol] 9.1 mg/dL Normal 8.5-10.2 [facility] Comment on above: Order Comment: Speci men Type: BLOOD SPECIMEN [facility] Address: [address] [place] [address] Performed By: #### 1 239, #### [facility] CLIA [id number] [address] [place] [address] [place] Chloride [Moles/Vol] 103 mmol/L Normal 97-105 [facility] Comment on above: Order Comment: Speci men Type: BLOOD SPECIMEN [facility] Address: [address] [place] [address] Performed By: #### 1 9123-01, #### [facility] CLIA [id number] [address] [place] [address] [place] CO2 [Moles/Vol] 25 mmol/L Normal 22-30 [facility] Comment on above: Order Comment: Speci men Type: BLOOD SPECIMEN [facility] Address: [address] [place] [address] Performed By: #### 1 239, 64085-7 #### [facility] CLIA [id number] [address] [place] [address] [place] Creatinine [Mass/Vol] 0.99 mg/dL High 0.58-0.96 [facility] Comment on above: Order Comment: Lenard jesus Type: BLOOD SPECIMEN [facility] Address: [address] [place] [address] Performed By: #### 1 9123-9, 08146-3 #### [facility] CLIA [id number] [address] [place] [address] [place] Creatinine and Glomerular filtration rate.predicted panel (S/P/Bld) 59 mL/min/1.73m??? Low >=60 [facility] Comment on above: Order Comment: Lenard jesus Type: BLOOD SPECIMEN [facility] Address: [address] [place] [address] Result Comment: Aaron mated Glomerular Filtration Rate [...] actual GFR. Performed By: #### 1 9123-9, 20567-1 #### [facility] CLIA [id number] [address] [place] [address] [place] Glucose [Mass/Vol] 95 mg/dL Normal 74-99 [facility] Comment on above: Order Comment: Lenard jesus Type: BLOOD SPECIMEN [facility] Address: [address] [place] [address] Result Comment: The [place] [employer] Association (ADA) provides guidance for cutoff [...] Standards of Medical Care in Diabetes 2016, [place] [employer]. Diabetes Care. 2016.39(Suppl 1). Performed By: #### 1 9122-9, 09161-0 #### [facility] CLIA [id number] [address] [place] [address] [place] Potassium [Moles/Vol] 3.8 mmol/L Normal 3.7-5.1 [facility] Comment on above: Order Comment: Speci men Type: BLOOD SPECIMEN [facility] Address: [address] [place] [address] Performed By: #### 1 9123-01, 50176-0 #### [facility] CLIA [id number] [address] [place] [address] [place] Protein [Mass/Vol] 6.6 g/dL Normal 6.3-8.0 [facility] Comment on above: Order Comment: Speci men Type: BLOOD SPECIMEN [facility] Address: [address] [place] [address] Performed By: #### 1 9123-01, 18879-3 #### [facility] CLIA [id number] [address] [place] [address] [place] Sodium [Moles/Vol] 141 mmol/L Normal 136-144 [facility] Comment on above: Order Comment: Speci men Type: BLOOD SPECIMEN [facility] Address: [address] [place] [address] Performed By: #### 1 9123-01, 10970-6 #### [facility] CLIA [id number] [address] [place] [address] [place] Urea nitrogen [Mass/Vol] 38 mg/dL High 7-21 [facility] Comment on above: Order Comment: Speci men Type: BLOOD SPECIMEN [facility] Address: [address] [place] [address] Performed By: #### 1 9123-01, 72850-9 #### [facility] CLIA [id number] [address] [place] [address] [place] Magnesium SerPl-mCncon 07-14 Magnesium [Mass/Vol] 2.2 mg/dL Normal 1.7-2.3 [facility] Comment on above: Order Comment: Speci men Type: BLOOD SPECIMEN [facility] Address: [address] [place] [address] Performed By: #### 1 9123-9, 95521-4 #### [facility] CLIA [id number] [address] [place] NURSING PROGon 07-15-2023 NURSING PROG HNO ID: [id number] Author: DARIUS GUERRA RN Service: PICC Team [...] 15, 2023 TIME: 11:25 AM PAGER/CONTACT #: [phone] [facility] NURSING PROG HNO ID: [id number] Author: FLORENTINO REBOLLEDO RN Service: ? Author [...] I/O. call mckeon in reach. 1500 Cardiology MEDICAL DEVICE SALES in to see pt regarding plan of care. ICD to be placed tomorrow. NPO after midnight tonight except medications. questions and concerns addressed. call mckeon in reach. 1600 Monitor remains SR 90's. VSS. afebrile. denies dizziness or cp. independent in room with steady gait. I/O. Assessment unchanged from above. call mckeon in reach. Normal [facility] THERAPY NTon 07-15-2023 THERAPY NT HNO ID: [id number] Author: DANIELLE JACOBS OT/L Service: Occupational Therapy Author Type: Occupational Therapist Type: Therapy (PT/OT/Speech/Resp) Filed: 07/15/2023 12:15 Note Text: Occupational Therapy Evaluation Summary SERVICE DATE: 07/15/2023 SERVICE TIME: 1006 to 1029 ROOM: [place] [address] OT 6 Clicks Score: 24 DISCHARGE RECOMMENDATIONS [...] CURRENT HOSPITAL COURSE Pt initially admitted to [place] for acute on chronic HFrEF. She was stabilized with IV diuresis however course complicated by hypotension and bradycardia. She was transferred to [facility] for biventricular pacer defibrillator placement Relevant Past Medical History: HFrEF, LBBB, hypothyroidism HOME LIVING Patient Lives With: Family (pt lives with her dtr in a 1 story home) Assistance Available: Part-Time (pt reports that dtr works from home and Sunday typically, but company has been flexible and may allow her to network consultant upon pt's d/c for first week) Entry [...] Need TREATMENT INTERVENTIONS Evaluation, Self Fdc Management (37058) Timed Code Treatment (minutes): 8 Skilled Treatment Time (minutes): 23 TRAINING AND EDUCATION PROVIDED Assistive Device Use, Benefits of In-Hospital Mobility, Discharge Planning, Disease Specific Education, Energy Conservation, Expected Functional Level, Functional Mobility Involving ADLs, Grooming Tasks, Lower Extremity Dressing, Role of Occupational Therapy, Standing Balance to Improve [place] with ADLs/Self-Care, Toileting , Transfer - Sit [...] DATE: July 15, 2023 TIME: 12:15 PM [facility] THERAPY NT HNO ID: [id number] Author: ZORAN HILL, PT, DPT Service: Physical Therapy Author Type: Physical Therapist Type: Therapy (PT/OT/Speech/Resp) Filed: 07/15/2023 09:14 Note Text: Physical Therapy Evaluation Summary SERVICE DATE: 07/15/2023 SERVICE TIME: 830 to 853 ROOM: [place] [address] PT 6 Clicks Score: 23 DISCHARGE RECOMMENDATIONS [...] CURRENT HOSPITAL COURSE ON RNF, RA, upcoming ENERGY AUDITOR device implant this admission Relevant Past Medical History: HFrEF, LBBB, hypothyroidism, multiple abdominal surgerise including cholecystectomy. HOME LIVING Patient Lives With: Family Assistance Available: Part-Time (Daughter works days, may be able to network consultant for pt first week after d/c to [...] Weakness (generalized) TREATMENT INTERVENTIONS Evaluation, Gait Training (81366) Timed Code Treatment (minutes): 8 Skilled Treatment [...] July 15, 2023 TIME: 9:11 AM Normal [facility] Basic metabolic 2000 panelon 07-14-2023 Anion gap [Moles/Vol] 11 mmol/L Normal 9-18 [facility] Comment on above: Order Comment: Speci men Type: BLOOD SPECIMENOrdering Facility: [facility] Address: [address] [place] [address] Performed By: #### 2 4321-2, 12350-4 ####[facility]ORATORYCLIA [id number] [place] [address] [place] Calcium [Mass/Vol] 9.2 mg/dL Normal 8.5-10.2 [facility] Comment on above: Order Comment: Speci men Type: BLOOD SPECIMENOrdering Facility: [facility] Address: [address] [place] [address] Performed By: #### 2 4321-2, ####[facility] LABORATORYCLIA [id number] [place] [address] [place] Chloride [Moles/Vol] 104 mmol/L Normal 97-105 [facility] Comment on above: Order Comment: Speci men Type: BLOOD SPECIMENOrdering Facility: [facility] Address: [address] [place] [address] Performed By: #### 2 4321-2, ####[facility]ORATORYCLIA [id number] [place] [address] [place] CO2 [Moles/Vol] 27 mmol/L Normal 22-30 [facility] Comment on above: Order Comment: Speci men Type: BLOOD SPECIMENOrdering Facility: [facility] Address: [address] [place] [address] Performed By: #### 2 4321-2, ####[facility]ORYCLIA [id number] [place] [address] [place] Creatinine [Mass/Vol] 0.84 mg/dL Normal 0.58-0.96 [facility] Comment on above: Order Comment: Speci men Type: BLOOD SPECIMENOrdering Facility: [facility] Address: [address] [place] [address] Performed By: #### 2 4321-2, ####[facility]ORATORYCLIA [id number] [place] [address] [place] Creatinine and Glomerular filtration rate.predicted panel (S/P/Bld) 72 mL/min/1.73m??? Normal >=60 [facility] Comment on above: Order Comment: Speci men Type: BLOOD SPECIMENOrdering Facility: [facility] Address: [address] [place] [address] Result Comment: Aaron mated Glomerular Filtration Rate [...] Performed By: #### 2 432-, ####[facility]ORYCLIA [id number] [place] [id number] [place] Glucose [Mass/Vol] 138 mg/dL High 74-99 [facility] Comment on above: Order Comment: Lenard jesus Type: BLOOD SPECIMENOrdering Facility: [facility] Address: [address] [place] [address] Result Comment: The [place] Diabetes Association (ADA) provides guidance for cutoff [...] Standards of Medical Care in Diabetes 2016, [place] [employer]. Diabetes Care. 2016.39(Suppl 1). Performed By: #### 2 4320-06, ####[facility]ORYCLIA [id number] [place] [id number] [place] Potassium [Moles/Vol] 4.2 mmol/L Normal 3.7-5.1 [facility] Comment on above: Order Comment: Lenard jesus Type: BLOOD SPECIMENOrdering Facility: [facility] Address: [address] [place] [address] Performed By: #### 2 432-, ####[facility]ORYCLIA [id number] [place] [address] [place] Sodium [Moles/Vol] 142 mmol/L Normal 136-144 [facility] Comment on above: Order Comment: Speci men Type: BLOOD SPECIMENOrdering Facility: [facility] Address: [address] [place] [address] Performed By: #### 2 4321-2, ####[facility]ORYCLIA [id number] [place] [address] [place] Urea nitrogen [Mass/Vol] 30 mg/dL High 7-21 [facility] Comment on above: Order Comment: Speci men Type: BLOOD SPECIMENOrdering Facility: [facility] Address: [address] [place], [place] [address] Performed By: #### 2 4321-2, ####[facility]ORYCLIA [id number] [place] [address] [place] Magnesium SerPl-mCncon 07-13 Magnesium [Mass/Vol] 2.1 mg/dL Normal 1.7-2.3 [facility] Comment on above: Order Comment: Speci men Type: BLOOD SPECIMENOrdering Facility: [facility] Address: [address] [place], [place] [address] Performed By: #### 2 4321-2, ####[facility]ORYCLIA [id number] [place] [address] [place] NURSING PROGon 07-14-2023 NURSING PROG HNO ID: [id number] Author: FLORENTINO REBOLLEDO RN Service: ? Author [...] urine. I/O. call mckeon in reach. Normal [facility] NURSING PROG HNO ID: [id number] Author: MEENA ALFORD RN Service: Nursing Author Type: Registered Nurse Type: Nursing Progress Note Filed: 07/14/2023 11:10 Note Text: Transfer Note: PATIENT NAME: Sandra Schmitz [id number]: Dr. Penaloza, Dr. Silva, and Jose Hill, WILLIAM all visited pt this am and updates given; orders rec'd. Pt's family at bedside. 1055: Patient transferred out to room/unit 3P318/CPPU to [place] [address] in stable condition via wheelchair. Actions taken: Report given/called to CARO Swartz. Pt's family with pt. And took pt belongings. Normal [facility] Basic metabolic 2000 panelon 07-13-2023 Anion gap [Moles/Vol] 9 mmol/L Normal 9-18 [facility] Comment on above: Order Comment: Speci men Type: BLOOD SPECIMENOrdering Facility: [facility] Address: [address] [place] [address] Performed By: #### 2 777-1, 50952-2, 00968-6, 26412-1 ####[facility]ORYCLIA [id number] [place] [address] [place] Calcium [Mass/Vol] 9.3 mg/dL Normal 8.5-10.2 [facility] Comment on above: Order Comment: Speci men Type: BLOOD SPECIMENOrdering Facility: [facility] Address: [address] [place] [address] Performed By: #### 2 777-1, 80926-6, 90504-4, ####[facility]ORYCLIA [id number] [place] [id number] [place] Chloride [Moles/Vol] 102 mmol/L Normal 97-105 [facility] Comment on above: Order Comment: Speci men Type: BLOOD SPECIMENOrdering Facility: [facility] Address: [address] [place] [address] Performed By: #### 2 777-1, 40559-8, 37809-6, ####[facility]ORYCLIA [id number] [place] [address] [place] CO2 [Moles/Vol] 30 mmol/L Normal 22-30 [facility] Comment on above: Order Comment: Speci men Type: BLOOD SPECIMENOrdering Facility: [facility] Address: [address] [place] [address] Performed By: #### 2 777-1, 52383-9, 73864-3, ####[facility]ORYCLIA [id number] [place] [id number] [place] Creatinine [Mass/Vol] 1.05 mg/dL High 0.58-0.96 [facility] Comment on above: Order Comment: Speci men Type: BLOOD SPECIMENOrdering Facility: [facility] Address: [address] [place] [address] Performed By: #### 2 777-1, 31062-5, 09600-9, ####[facility]ORYCLIA [id number] [place] [address] [place] Creatinine and Glomerular filtration rate.predicted panel (S/P/Bld) 55 mL/min/1.73m??? Low >=60 [facility] Comment on above: Order Comment: Speci men Type: BLOOD SPECIMENOrdering Facility: [facility] Address: [address] [place] [address] Result Comment: Aaron mated Glomerular Filtration Rate [...] actual GFR. Performed By: #### 2 777-1, 65433-9, 29360-6, ####[facility] LABORATORYCLIA [id number] [place] [id number] [place] Glucose [Mass/Vol] 94 mg/dL Normal 74-99 [facility] Comment on above: Order Comment: Lenard jesus Type: BLOOD SPECIMENOrdering Facility: [facility] Address: [address] [place] [address] Result Comment: The [place] Diabetes Association (ADA) provides guidance for cutoff [...] Standards of Medical Care in Diabetes 2016, [place] [employer]. Diabetes Care. 2016.39(Suppl 1). Performed By: #### 2 777-1, 78172-2, 50019-5, 38811-1 ####[facility] LABORATORYCLIA [id number] [place] [id number] [place] Potassium [Moles/Vol] 4.7 mmol/L Normal 3.7-5.1 [facility] Comment on above: Order Comment: Lenard jesus Type: BLOOD SPECIMENOrdering Facility: [facility] Address: [address] [place] [address] Performed By: #### 2 777-1, 48249-4, 00448-4, 92733-7 ####[facility]ATORYCLIA [id number] [place] [address] [place] Sodium [Moles/Vol] 141 mmol/L Normal 136-144 [facility] [facility] Comment on above: Order Comment: Speci men Type: BLOOD SPECIMENOrdering Facility: [facility] Address: [address] [place] [address] Performed By: #### 2 777-1, 23096-0, 19881-9, 00196-5 ####[facility]AND LABORATORYCLIA [id number] [place] [id number] [place] Urea nitrogen [Mass/Vol] 37 mg/dL High 7- [facility] Comment on above: Order Comment: Speci men Type: BLOOD SPECIMENOrdering Facility: [facility] Address: [address] [place] [address] Performed By: #### 2 777-1, 39178-4, 65202-1, 20778-0 ####ZEELAND LABORATORYCLIA [id number] [place] [address] [facility] CASE MANAGEMon 07-13-2023 CASE MANAGEM HNO ID: [id number] Author: ALIREZA ROBERTS LSW Service: ASSESSMENT Author Type: Corrugator Helper Type: Care Mgt Progress Note Filed: 07/13/2023 11:11 Note Text: CARE MANAGEMENT PROGRESS NOTE SERVICE DATE: 07/13/2023 SERVICE TIME: 10:59 AM LOS: 3 days Needs Prior to Discharge: To Be Determined;Bed Availability SW reviewed EMR. Per EMR pt. Is waiting for a bed at [place]. CM will remain available should any further discharge planning needs arise. SIGNATURE: CLARA Luna PATIENT NAME: Sandra Schmitz DATE: July 13, 2023 TIME: 10:58 AM PAGER/CONTACT #: [facility] CBC W Auto Differential pane l (Bld)on 07-13-2023 Basophils (Bld) [#/Vol] 0.07 10*3/uL Normal <0.11 [facility] Comment on above: Order Comment: Speci men Type: BLOOD SPECIMENOrdering Facility: [facility] Address: [address] [place] [address] Performed By: #### 5 7021-8 ####KO LABORATORYCLIA [id number] [place] [address] [place] Basophils/100 WBC (Bld) 0.9 % Normal [facility] Comment on above: Order Comment: Speci men Type: BLOOD SPECIMENOrdering Facility: [facility] Address: [address] [place] [address] Performed By: #### 5 7021-8 ####KO LABORATORYCLIA [id number] [place] [address] [place] Differential cell count method Nom (Bld) Auto Normal [facility] Comment on above: Order Comment: Speci men Type: BLOOD SPECIMENOrdering Facility: [facility] Address: [address] [place] [address] Performed By: #### 5 7021-8 ####KO LABORATORYCLIA [id number] [place] [address] [place] Eosinophils (Bld) [#/Vol] 0.23 10*3/uL Normal <0.46 [facility] Comment on above: Order Comment: Speci men Type: BLOOD SPECIMENOrdering Facility: [facility] Address: [address] [place] [address] Performed By: #### 5 7021-8 ####KO LABORATORYCLIA [id number] [place] [address] [place] Eosinophils/100 WBC (Bld) 3.0 % Normal [facility] Comment on above: Order Comment: Speci men Type: BLOOD SPECIMENOrdering Facility: [facility] Address: [address] [place] [address] Performed By: #### 5 7021-8 ####KO LABORATORYCLIA [id number] [place] [address] [place] Erythrocyte distribution width (RBC) [Ratio] 14.7 % Normal 11.5-15.0 [facility] Comment on above: Order Comment: Speci men Type: BLOOD SPECIMENOrdering Facility: [facility] Address: [address] [place] [address] Performed By: #### 5 7021-8 ####KO LABORATORYCLIA [id number] [place] [address] [place] Hematocrit (Bld) [Volume fraction] 37.5 % Normal 36.0-46.0 [facility] Comment on above: Order Comment: Speci men Type: BLOOD SPECIMENOrdering Facility: [facility] Address: [address] [place] [address] Performed By: #### 5 7021-8 ####KO LABORATORYCLIA [id number] [place] [address] [place] Hemoglobin (Bld) [Mass/Vol] 12.0 g/dL Normal 11.5-15.5 [facility] Comment on above: Order Comment: Speci men Type: BLOOD SPECIMENOrdering Facility: [facility] Address: [address] [place] [address] Performed By: #### 5 7021-8 ####KO LABORATORYCLIA [id number] [place] [address] [place] Immature granulocytes (Bld) [#/Vol] 0.04 10*3/uL Normal <0.10 [facility] Comment on above: Order Comment: Speci men Type: BLOOD SPECIMENOrdering Facility: [facility] Address: [address] [place] [address] Performed By: #### 5 7021-8 ####KO LABORATORYCLIA [id number] [place] [address] [place] Immature granulocytes/100 WBC (Bld) 0.5 % Normal [facility] Comment on above: Order Comment: Speci men Type: BLOOD SPECIMENOrdering Facility: [facility] Address: [address] [place] [address] Performed By: #### 5 7021-8 ####KO LABORATORYCLIA [id number] [place] [address] [place] Lymphocytes (Bld) [#/Vol] 2.98 10*3/uL Normal 1.00-4.00 [facility] Comment on above: Order Comment: Speci men Type: BLOOD SPECIMENOrdering Facility: [facility] Address: [address] [place] [address] Performed By: #### 5 7021-8 ####KO LABORATORYCLIA [id number] [address] Lymphocytes/100 WBC (Bld) 39.4 % Normal [facility] Comment on above: Order Comment: Speci men Type: BLOOD SPECIMENOrdering Facility: [facility] Address: [address] [place] [address] Performed By: #### 5 7021-8 ####KO LABORATORYCLIA [id number] [address] MCH (RBC) [Entitic mass] 29.4 pg Normal 26.0-34.0 [facility] Comment on above: Order Comment: Speci men Type: BLOOD SPECIMENOrdering Facility: [facility] Address: [address] [place] [address] Performed By: #### 5 7021-8 ####KO LABORATORYCLIA [id number] [address] MCHC (RBC) [Mass/Vol] 32.0 g/dL Normal 30.5-36.0 [facility] Comment on above: Order Comment: Speci men Type: BLOOD SPECIMENOrdering Facility: [facility] Address: [address] [place] [address] Performed By: #### 5 7021-8 ####KO LABORATORYCLIA [id number] [address] MCV (RBC) [Entitic vol] 91.9 fL Normal 80.0-100.0 [facility] Comment on above: Order Comment: Speci men Type: BLOOD SPECIMENOrdering Facility: [facility] Address: [address] [place] [address] Performed By: #### 5 7021-8 ####KO LABORATORYCLIA [id number] [address] [place] Monocytes (Bld) [#/Vol] 0.72 10*3/uL Normal <0.87 [facility] Comment on above: Order Comment: Speci men Type: BLOOD SPECIMENOrdering Facility: [facility] Address: [address] [place] [address] Performed By: #### 5 7021-8 ####KO LABORATORYCLIA [id number] [place] [address] [place] Monocytes/100 WBC (Bld) 9.5 % Normal [facility] Comment on above: Order Comment: Speci men Type: BLOOD SPECIMENOrdering Facility: [facility] Address: [address] [place] [address] Performed By: #### 5 7021-8 ####KO LABORATORYCLIA [id number] [place] [address] [place] Neutrophils (Bld) [#/Vol] 3.52 10*3/uL Normal 1.45-7.50 [facility] Comment on above: Order Comment: Speci men Type: BLOOD SPECIMENOrdering Facility: [facility] Address: [address] [place] [address] Performed By: #### 5 7021-8 ####KO LABORATORYCLIA [id number] [address] [place] Neutrophils/100 WBC (Bld) 46.7 % Normal [facility] Comment on above: Order Comment: Speci men Type: BLOOD SPECIMENOrdering Facility: [facility] Address: [address] [place] [address] Performed By: #### 5 7021-8 ####KO LABORATORYCLIA [id number] [place] [address] [place] Nucleated RBC (Bld) [#/Vol] 10*3/uL Normal <0.01 [facility] Comment on above: Order Comment: Speci men Type: BLOOD SPECIMENOrdering Facility: [facility] Address: [address] [place] [address] Performed By: #### 5 7021-8 ####KO LABORATORYCLIA [id number] [place] [address] [place] Nucleated RBC/100 WBC (Bld) [Ratio] 0.0 /100 WBC Normal [facility] Comment on above: Order Comment: Speci men Type: BLOOD SPECIMENOrdering Facility: [facility] Address: [facility] [place] [address] Performed By: #### 5 7021-8 ####KO LABORATORYCLIA [id number] [place] [address] [place] Platelet mean volume (Bld) [Entitic vol] 10.1 fL Normal 9.0-12.7 [facility] Comment on above: Order Comment: Speci men Type: BLOOD SPECIMENOrdering Facility: [facility] Address: [address] [place] [address] Performed By: #### 5 7021-8 ####KO LABORATORYCLIA [id number] [place] [address] [place] Platelets (Bld) [#/Vol] 270 10*3/uL Normal 150-400 [facility] Comment on above: Order Comment: Speci men Type: BLOOD SPECIMENOrdering Facility: [facility] Address: [address] [place] [address] Performed By: #### 5 7021-8 ####KO LABORATORYCLIA [id number] [place] [address] [place] RBC (Bld) [#/Vol] 4.08 10*6/uL Normal 3.90-5.20 [facility] Comment on above: Order Comment: Speci men Type: BLOOD SPECIMENOrdering Facility: [facility] Address: [address] [place] [address] [place] [address] Performed By: #### 5 7021-8 ####KO LABORATORYCLIA [id number] [place] [address] [place] WBC (Bld) [#/Vol] 7.56 10*3/uL Normal 3.70-11.00 [facility] Comment on above: Order Comment: Speci men Type: BLOOD SPECIMENOrdering Facility: [facility] Address: [address] [place] [address] Performed By: #### 5 7021-8 ####KO LABORATORYCLIA [id number] [place] [address] [place] CBC panel Auto (Bld)on 07-12 Erythrocyte distribution width (RBC) [Ratio] 14.6 % Normal 11.5-15.0 [facility] Comment on above: Order Comment: Speci men Type: BLOOD SPECIMEN [facility] Address: [address] [place] [address] Performed By: #### 5 8410-2 #### [facility] CLIA [id number] [address] [place] [address] [place] Hematocrit (Bld) [Volume fraction] 41.7 % Normal 36.0-46.0 [facility] Comment on above: Order Comment: Speci men Type: BLOOD SPECIMEN [facility] Address: [address] [place] [address] Performed By: #### 5 8410-2 #### [facility] CLIA [id number] [address] [place] [address] [place] Hemoglobin (Bld) [Mass/Vol] 13.3 g/dL Normal 11.5-15.5 [facility] Comment on above: Order Comment: Speci men Type: BLOOD SPECIMEN [facility] Address: [address] [place] [address] Performed By: #### 5 8410-2 #### [facility] CLIA [id number] [address] [place] [address] [place] MCH (RBC) [Entitic mass] 29.4 pg Normal 26.0-34.0 [facility] Comment on above: Order Comment: Speci men Type: BLOOD SPECIMEN [facility] Address: [address] [place] [address] Performed By: #### 5 8410-2 #### [facility] CLIA [id number] [address] [place] [address] [place] MCHC (RBC) [Mass/Vol] 31.9 g/dL Normal 30.5-36.0 [facility] Comment on above: Order Comment: Speci men Type: BLOOD SPECIMEN [facility] Address: [address] [place] [address] Performed By: #### 5 8410-2 #### [facility] CLIA [id number] [address] [place] [address] [place] MCV (RBC) [Entitic vol] 92.1 fL Normal 80.0-100.0 [facility] Comment on above: Order Comment: Speci men Type: BLOOD SPECIMEN [facility] Address: [address] [place] [address] Performed By: #### 5 8410-2 #### [facility] CLIA [id number] [address] [place] [address] [place] Nucleated RBC (Bld) [#/Vol] 10*3/uL Normal <0.01 [facility] Comment on above: Order Comment: Speci men Type: BLOOD SPECIMEN [facility] Address: [address] [place] [address] Performed By: #### 5 8410-2 #### [facility] CLIA [id number] [address] [place] [address] [place] Platelet mean volume (Bld) [Entitic vol] 10.3 fL Normal 9.0-12.7 [facility] Comment on above: Order Comment: Speci men Type: BLOOD SPECIMEN [facility] Address: [address] [place] [address] Performed By: #### 5 8410-2 #### [facility] CLIA [id number] [address] [place] [address] [place] Platelets (Bld) [#/Vol] 299 10*3/uL Normal 150-400 [facility] Comment on above: Order Comment: Speci men Type: BLOOD SPECIMEN [facility] Address: [address] [place] [address] Performed By: #### 5 8410-2 #### [facility] CLIA [id number] [address] [place] [address] [place] RBC (Bld) [#/Vol] 4.53 10*6/uL Normal 3.90-5.20 [facility] Comment on above: Order Comment: Lenard jesus Type: BLOOD SPECIMEN [facility] Address: [address] [place] [address] Performed By: #### 5 8410-2 #### [facility] CLIA [id number] [place] [id number] [place] WBC (Bld) [#/Vol] 8.78 10*3/uL Normal 3.70-11.00 [facility] Comment on above: Order Comment: Lenard men Type: BLOOD SPECIMEN [facility] Address: [address] [place] [address] Performed By: #### 5 8410-2 #### [facility] CLIA [id number] [place], [place] [address] [place] CK SerPl-cCncon 07-13-2023 CK [Catalytic activity/Vol] 51 U/L Normal 42-196 [facility] Comment on above: Order Comment: Lenard jesus Type: BLOOD SPECIMENOrdering Facility: [facility] Address: [address] [place] [address] Performed By: #### 1 9123-9, 55759-4, 2157-6 ####[facility] LABORATORYCLIA [id number] [place] [id number] [place] CNDSon 07-13-2023 CNDS HNO ID: [id number] Author: REMINGTON CAI MD Service: Hospital Medicine [...] beta-lorenzo. Unable to schedule pacer defibrillator and [place] and contacted [facility] in August to have Dr. Wellington [...] pacer defibrillator plan to be done at [place] Disposition: Transfer to [place] on [facility] medicine with consult to Dr. Dilcia Wellington [...] Recent Labs (more content not included)... Normal [facility] CNPNon 07-13-2023 CNPN Telephone (FVPRAD) ----- SANDRA SCHMITZ ([id number]) 1945 F [place] Date Time Provider Department 07/13/23 RAHUL BEE During your visit today, we recorded the following information about you: Rahul Bee MD 07/13/2023 7:28 AM Signed Hospital Medicine Transfer Received page for transfer request from [facility] to [facility]: Sandra Schmitz is 77 year old female who presented with non ischemic decompensated heart failure EF 26%. Suspected runs of tachycardia of unclear origin. Being transferred for possible ENERGY AUDITOR. Cannot tolerate betablocker. Currently SBP in 100s. No ICD before. Mild CAD. Reason for transfer: Possible ENERGY AUDITOR placement Accepted to hospital medicine service at [...] Assessed Reason for Visit: Hospital To Hospital [[id number]] Prescriptions as of 07/13/2023 - metoprolol succinate [...] dysfunction of (more content not included)... Normal [facility] CONSULTon 07-13-2023 CONSULT HNO ID: [id number] Author: BRUNO PENALOZA MD Service: Electrophysiology Author Type: Physician Type: Consults Filed: 07/14/2023 11:43 Note Text: [facility] CARDIOVASCULAR MEDICINE CONSULT NOTE Sandra Schmitz [id number] PRIMARY SERVICE: Internal Medicine CONSULTING SERVICE: Cardiovascular Medicine: Electrophysiology DATE OF ADMISSION: 07/13/2023 DATE OF CONSULT: 07/13/2023 REASON FOR CONSULT Consideration for ENERGY AUDITOR-D HISTORY OF PRESENT ILLNESS Sandra Schmitz is a 77 year old female, who presented initially to [place] ER due to concerns for chest pressure with associated postural lightheadedness and bendopnea. Shew as subsequently admitted for further evaluation and management. She underwent lexiscan which was negative for inducible ischemia and transthoracic echocardiogram demonstrated persistently reduced ejection fraction of <35%. There was difficulty initiating GDMT due to hypotension and bradycardia. Thus FV EP was consutled for consideration for inpatient ENERGY AUDITOR implantation given her longstanding LBBB, dating back [...] EC tabletTak (more content not included)... Normal [facility] ECG COMPLETEon 07-13-2023 ECG COMPLETE Ventricular Rate : 5 8 BPM Atrial Rate : 58 BPM P-R Interval : 148 ms QRS Duration : 177 ms Q-T Interval : 485 ms QTC Calculation(Bazett) : 477 ms Calculated P Orlando : 36 degrees Calculated R Orlando : -23 degrees Calculated T Orlando : 151 degrees Sinus rhythm Left bundle branch block Confirmed by ROSALIA WARNER MD ([id number]) on 08/23/2023 1:01:19 PM NAME : SANDRA SCHMITZ PID : [id number] : 1945 Gender : Female Race : ORD : [id number] Procedure Date : Jul 13 2023 17:24:10 Edit Date : Aug 23 2023 13:01:20 Diagnosis: Sinus rhythm Left bundle branch block Confirmed by ROSALIA WARNER MD ([id number]) on 08/23/2023 1:01:19 PM Test Reason : Shortness of Breath Location : 400 : FVEKG 3P31 Overread By : ROSALIA WARNER MD Edited By : ROSALIA WARNER MD Referred By : REMINGTON CAI Acquired by : ILDEFONSO SANCHEZ [facility] HISTORY PHYSICALon HISTORY PHYSICAL HNO ID: [id number] Author: LOUISA CAMP DO Service: Hospital Medicine Author Type: Physician Type: H&P Filed: 07/13/2023 18:22 Note Text: Hospital Medicine Admission History and Physical PRIMARY SERVICE: HOSPITAL MEDICINE Days: Page or epic chat me directly Evenings: Page hospital medicine pager [phone] PATIENT NAME: Sandra Schmitz DATE of SERVICE: July 13, 2023 TIME of SERVICE: 3:14 PM PCP: Mandeep Houser CODE STATUS: No Order ASSESSMENT/PLAN SUMMARY: 77yo female PMH HFrEF, LBBB, hypothyroidism, initially admitted to [place] for acute on chronic HFrEF. She was stabilized with IV diuresis however course complicated by hypotension and bradycardia. She was transferred to [facility] for biventricular pacer defibrillator placement Acute [...] fibrillation. 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 She is to be scheduled for pacer [...] tried to get the procedure scheduled in [place] but they had no openings and Dr. Castro was able to contact Dr. Wellington and patient will be transferred to [facility] on hospital medicine service for her [...] and is agreeable to current plan. Normal [facility] Magnesium [facility] 07-12 Magnesium [Mass/Vol] 2.1 mg/dL Normal 1.7-2.3 [facility] Comment on above: Order Comment: Speci men Type: BLOOD SPECIMENOrdering Facility: [facility] Address: [address] [place] [address] Performed By: #### 2 777-1, 59462-9, 81190-9, 70764-2 ####[facility] LABORATORYCLIA [id number] [address] [place] Magnesium [Mass/Vol] 2.1 mg/dL Normal 1.7-2.3 [facility] Comment on above: Order Comment: Speci men Type: BLOOD SPECIMENOrdering Facility: [facility] Address: [address] [place] [address] Performed By: #### 1 9123-9, 03554-6, 215-6 ####[facility] LABORATORYCLIA [id number] [place] [address] [place] [facility] Natriuretic peptide.B prohormone N-Terminal [Mass/Vol] 2522 pg/mL High <450 [facility] Comment on above: Order Comment: Speci men Type: BLOOD SPECIMENOrdering Facility: [facility] Address: [address] [place] [address] Performed By: #### 2 777-1, 91776-7, 63307-3, 27778-6 ####[facility] LABORATORYCLIA [id number] [place] [id number] [facility] NURSING PROGon 07-13-2023 NURSING PROG HNO ID: [id number] Author: MARY LOU CRUZ RN Service: Nursing Author Type: Registered Nurse Type: Nursing Progress Note Filed: 07/13/2023 16:48 Note Text: 1425 Pt arrived to unit with transport from [facility] in stable condition. Tele SR on monitor. Pt oriented to unit and plan of care 1600 Dr. Camp into see pt. Attempting to wean O2 at this time [facility] NURSING PROG HNO ID: [id number] Author: MISTY ASCENCIO, RN Service: Nursing Author Type: Registered Nurse Type: Nursing Progress Note Filed: 07/13/2023 11:31 Note Text: PATIENT EDUCATION HEART FAILURE PATIENT NAME: Sandra Schmitz PATIENT LOCATION: [place] [id number] SURVIVAL SKILLS: Low Sodium Diet Weight Monitoring and Dry Weight Importance of Follow Up after Discharge Fluid Restriction, if applicable Heart Failure Medications Symptom Management related to heart failure Activity / Physical Exercise Recommendations Smoking cessation counseling if applicable When Patient Should Call Provider Follow up visit for CHF education. Survival Skills revieved. No questions @ this time. Awaiting transfer to [facility]. Electronically Signed By: Misty Ascencio [facility] Phosphate SerPl-ncon 07-12 Phosphate [Mass/Vol] 3.1 mg/dL Normal 2.7-4.8 [facility] Comment on above: Order Comment: Speci men Type: BLOOD SPECIMENOrdering Facility: [facility] Address: [address] [place] [address] Performed By: #### 2 777-1, 75470-8, 41801-3, ####[facility] LABORATORYCLIA [id number] [place] [id number] [place] Renal function 2000 panelon 07-13-2023 Albumin [Mass/Vol] 3.8 g/dL Low 3.9-4.9 [facility] Comment on above: Order Comment: Speci men Type: BLOOD SPECIMENOrdering Facility: [facility] Address: [address] [place] [address] Performed By: #### 1 9123-9, 32698-1, 2156-10 ####[facility] LABORATORYCLIA [id number] [place] [address] [place] Anion gap [Moles/Vol] 9 mmol/L Normal 9-18 [facility] Comment on above: Order Comment: Speci men Type: BLOOD SPECIMENOrdering Facility: [facility] Address: [address] [place] [address] Performed By: #### 1 9123-9, , 2156-10 ####[facility] LABORATORYCLIA [id number] [place] [address] [place] Calcium [Mass/Vol] 9.1 mg/dL Normal 8.5-10.2 [facility] Comment on above: Order Comment: Speci men Type: BLOOD SPECIMENOrdering Facility: [facility] Address: [address] [place] [address] Performed By: #### 1 9123-9, , 2156-10 ####[facility] LABORATORYCLIA [id number] [place] [address] [place] Chloride [Moles/Vol] 103 mmol/L Normal 97-105 [facility] Comment on above: Order Comment: Speci men Type: BLOOD SPECIMENOrdering Facility: [facility] Address: [address] [place] [address] Performed By: #### 1 9123-9, 41924-9, 2156-10 ####[facility] LABORATORYCLIA [id number] [place] [address] [place] CO2 [Moles/Vol] 31 mmol/L High 22-30 [facility] Comment on above: Order Comment: Lenard jesus Type: BLOOD SPECIMENOrdering Facility: [facility] Address: [address] [place] [address] Performed By: #### 1 9123-9, 78949-0, 2156-10 ####[facility] LABORATORYCLIA [id number] [place] [id number] [place] Creatinine [Mass/Vol] 1.02 mg/dL High 0.58-0.96 [facility] Comment on above: Order Comment: Lenard jesus Type: BLOOD SPECIMENOrdering Facility: [facility] Address: [address] [place] [address] Performed By: #### 1 9123-9, , 2156-10 ####[facility] LABORATORYCLIA [id number] [place] [id number] [place] Creatinine and Glomerular filtration rate.predicted panel (S/P/Bld) 57 mL/min/1.73m??? Low >=60 [facility] Comment on above: Order Comment: [facility] Type: BLOOD SPECIMENOrdering Facility: [facility] Address: [address] [place] [address] Result Comment: Aaron mated Glomerular Filtration Rate [...] actual GFR. Performed By: #### 1 9123-9, 91407-7, 2156-10 ####[facility]ORATORYCLIA [id number] [place] [id number] [place] Glucose [Mass/Vol] 91 mg/dL Normal 74-99 [facility] Comment on above: Order Comment: [facility] Type: BLOOD SPECIMENOrdering Facility: [facility] Address: [address] [place] [address] Result Comment: The [place] Diabetes Association (ADA) provides guidance for cutoff [...] Standards of Medical Care in Diabetes 2016, [place] [employer]. Diabetes Care. 2016.39(Suppl 1). Performed By: #### 1 9123-9, , 2156-10 ####[facility] LABORATORYCLIA [id number] [place] [address] [place] Phosphate [Mass/Vol] 3.2 mg/dL Normal 2.7-4.8 [facility] Comment on above: Order Comment: Lenard jesus Type: BLOOD SPECIMENOrdering Facility: [facility] Address: [address] [place] [address] Performed By: #### 1 9123-9, , 2156-10 ####KO LABORATORYCLIA [id number] [place] [address] [place] Potassium [Moles/Vol] 4.3 mmol/L Normal 3.7-5.1 [facility] Comment on above: Order Comment: Lenard jesus Type: BLOOD SPECIMENOrdering Facility: [facility] Address: [address] [place] [address] Performed By: #### 1 9123-9, , 2156-10 ####KO LABORATORYCLIA [id number] [place] [id number] [place] Sodium [Moles/Vol] 143 mmol/L Normal 136-144 [facility] Comment on above: Order Comment: Lenard jesus Type: BLOOD SPECIMENOrdering Facility: [facility] Address: [address] [place] [address] Performed By: #### 1 9123-9, , 2156-10 ####KO LABORATORYCLIA [id number] [place] [id number] [place] Urea nitrogen [Mass/Vol] 33 mg/dL High 7- [facility] Comment on above: Order Comment: Speci edin Type: BLOOD SPECIMENOrdering Facility: [facility] Address: [address] [place] [address] Performed By: #### 1 9123-9, 55784-7, 2157-6 ####[facility]ORATORYCLIA [id number] [place] [id number] [place] XR CHEST 2V [...] is unremarkable. IMPRESSION: No acute cardiopulmonary process. Wafer Fab Operator: PSCB Transcribe Date/Time: Jul 13 2023 5:02P Dictated by : LILI MARSH MD This examination was interpreted and the report reviewed and electronically signed by: LILI MARSH MD on Jul 13 2023 5:03PM EST [id number] Normal [facility] CBC W Auto Differential pane l (Bld)on 07-12-2023 Basophils (Bld) [#/Vol] 0.08 10*3/uL Normal <0.11 [facility] Comment on above: Order Comment: Speci edin Type: BLOOD SPECIMENOrdering Facility: [facility] Address: [address] [place] [address] Performed By: #### 5 7021-8 ####[facility]ORATORYCLIA [id number] [place] [id number] [place] Basophils/100 WBC (Bld) 1.0 % Normal [facility] Comment on above: Order Comment: Speci men Type: BLOOD SPECIMENOrdering Facility: [facility] Address: [address] [place] [address] Performed By: #### 5 7021-8 ####KO LABORATORYCLIA [id number] [address] [place] Differential cell count method Nom (Bld) Auto Normal [facility] Comment on above: Order Comment: Speci men Type: BLOOD SPECIMENOrdering Facility: [facility] Address: [address] [place] [address] Performed By: #### 5 7021-8 ####KO LABORATORYCLIA [id number] [place] [address] [place] Eosinophils (Bld) [#/Vol] 0.27 10*3/uL Normal <0.46 [facility] Comment on above: Order Comment: Speci men Type: BLOOD SPECIMENOrdering Facility: [facility] Address: [address] [place] [address] Performed By: #### 5 7021-8 ####KO LABORATORYCLIA [id number] [address] [place] Eosinophils/100 WBC (Bld) 3.5 % Normal [facility] Comment on above: Order Comment: Speci men Type: BLOOD SPECIMENOrdering Facility: [facility] Address: [address] [place] [address] Performed By: #### 5 7021-8 ####KO LABORATORYCLIA [id number] [address] [place] Erythrocyte distribution width (RBC) [Ratio] 14.8 % Normal 11.5-15.0 [facility] Comment on above: Order Comment: Speci men Type: BLOOD SPECIMENOrdering Facility: [facility] Address: [address] [place] [address] Performed By: #### 5 7021-8 ####KO LABORATORYCLIA [id number] [address] [place] Hematocrit (Bld) [Volume fraction] 38.9 % Normal 36.0-46.0 [facility] Comment on above: Order Comment: Speci men Type: BLOOD SPECIMENOrdering Facility: [facility] Address: [address] [place] [address] Performed By: #### 5 7021-8 ####KO LABORATORYCLIA [id number] [place] [address] [place] Hemoglobin (Bld) [Mass/Vol] 12.2 g/dL Normal 11.5-15.5 [facility] Comment on above: Order Comment: Speci men Type: BLOOD SPECIMENOrdering Facility: [facility] Address: [address] [place] [address] Performed By: #### 5 7021-8 ####KO LABORATORYCLIA [id number] [place] [address] [place] Immature granulocytes (Bld) [#/Vol] 0.03 10*3/uL Normal <0.10 [facility] Comment on above: Order Comment: Speci men Type: BLOOD SPECIMENOrdering Facility: [facility] Address: [address] [place] [address] Performed By: #### 5 7021-8 ####KO LABORATORYCLIA [id number] [place] [address] [place] Immature granulocytes/100 WBC (Bld) 0.4 % Normal [facility] Comment on above: Order Comment: Speci men Type: BLOOD SPECIMENOrdering Facility: [facility] Address: [address] [place] [address] Performed By: #### 5 7021-8 ####KO LABORATORYCLIA [id number] [place] [address] [place] Lymphocytes (Bld) [#/Vol] 2.73 10*3/uL Normal 1.00-4.00 [facility] Comment on above: Order Comment: Speci men Type: BLOOD SPECIMENOrdering Facility: [facility] Address: [address] [place] [address] Performed By: #### 5 7021-8 ####KO LABORATORYCLIA [id number] [address] [place] Lymphocytes/100 WBC (Bld) 35.5 % Normal [facility] Comment on above: Order Comment: Speci men Type: BLOOD SPECIMENOrdering Facility: [facility] Address: [address] [place] [address] Performed By: #### 5 7021-8 ####KO LABORATORYCLIA [id number] [place] [address] [place] MCH (RBC) [Entitic mass] 28.8 pg Normal 26.0-34.0 [facility] Comment on above: Order Comment: Speci men Type: BLOOD SPECIMENOrdering Facility: [facility] Address: [address] [place] [address] Performed By: #### 5 7021-8 ####KO LABORATORYCLIA [id number] [place] [address] [place] MCHC (RBC) [Mass/Vol] 31.4 g/dL Normal 30.5-36.0 [facility] Comment on above: Order Comment: Speci men Type: BLOOD SPECIMENOrdering Facility: [facility] Address: [address] [place] [address] Performed By: #### 5 7021-8 ####KO LABORATORYCLIA [id number] [address] [place] MCV (RBC) [Entitic vol] 92.0 fL Normal 80.0-100.0 [facility] Comment on above: Order Comment: Speci men Type: BLOOD SPECIMENOrdering Facility: [facility] Address: [address] [place] [address] Performed By: #### 5 7021-8 ####KO LABORATORYCLIA [id number] [place] [address] [place] Monocytes (Bld) [#/Vol] 0.76 10*3/uL Normal <0.87 [facility] Comment on above: Order Comment: Speci men Type: BLOOD SPECIMENOrdering Facility: [facility] Address: [address] [place] [address] Performed By: #### 5 7021-8 ####KO LABORATORYCLIA [id number] [address] [place] Monocytes/100 WBC (Bld) 9.9 % Normal [facility] Comment on above: Order Comment: Speci men Type: BLOOD SPECIMENOrdering Facility: [facility] Address: [address] [place] [address] Performed By: #### 5 7021-8 ####KO LABORATORYCLIA [id number] [place] [address] [place] Neutrophils (Bld) [#/Vol] 3.82 10*3/uL Normal 1.45-7.50 [facility] Comment on above: Order Comment: Speci men Type: BLOOD SPECIMENOrdering Facility: [facility] Address: [address] [place] [address] Performed By: #### 5 7021-8 ####KO LABORATORYCLIA [id number] [place] [address] [place] Neutrophils/100 WBC (Bld) 49.7 % Normal [facility] Comment on above: Order Comment: Speci men Type: BLOOD SPECIMENOrdering Facility: [facility] Address: [address] [place] [address] Performed By: #### 5 7021-8 ####KO LABORATORYCLIA [id number] [place] [address] [place] Nucleated RBC (Bld) [#/Vol] 10*3/uL Normal <0.01 [facility] Comment on above: Order Comment: Speci men Type: BLOOD SPECIMENOrdering Facility: [facility] Address: [address] [place] [address] Performed By: #### 5 7021-8 ####KO LABORATORYCLIA [id number] [place] [address] [place] Nucleated RBC/100 WBC (Bld) [Ratio] 0.0 /100 WBC Normal [facility] Comment on above: Order Comment: Speci men Type: BLOOD SPECIMENOrdering Facility: [facility] Address: [address] [place] [address] Performed By: #### 5 7021-8 ####KO LABORATORYCLIA [id number] [place] [address] [place] Platelet mean volume (Bld) [Entitic vol] 10.2 fL Normal 9.0-12.7 [facility] Comment on above: Order Comment: Speci men Type: BLOOD SPECIMENOrdering Facility: [facility] Address: [address] [place] [address] Performed By: #### 5 7021-8 ####KO LABORATORYCLIA [id number] [address] Platelets (Bld) [#/Vol] 273 10*3/uL Normal 150-400 [facility] Comment on above: Order Comment: Speci men Type: BLOOD SPECIMENOrdering Facility: [facility] Address: [address] [place] [address] Performed By: #### 5 7021-8 ####KO LABORATORYCLIA [id number] [address] [place] RBC (Bld) [#/Vol] 4.23 10*6/uL Normal 3.90-5.20 [facility] Comment on above: Order Comment: Speci men Type: BLOOD SPECIMENOrdering Facility: [facility] Address: [address] [place] [address] Performed By: #### 5 7021-8 ####KO LABORATORYCLIA [id number] [address] WBC (Bld) [#/Vol] 7.69 10*3/uL Normal 3.70-11.00 [facility] Comment on above: Order Comment: Speci men Type: BLOOD SPECIMENOrdering Facility: [facility] Address: [address] [place] [address] Performed By: #### 5 7021-8 ####KO LABORATORYCLIA [id number] [address] [place] CK SerPl-cCncon 07-12-2023 CK [Catalytic activity/Vol] 51 U/L Normal 42-196 [facility] Comment on above: Order Comment: Speci men Type: BLOOD SPECIMENOrdering Facility: [facility] Address: [address] [place] [address] Performed By: #### 2 157-6, 25792-6, 34467-7 ####KO LABORATORYCLIA [id number] [address] [place] ECHOon 07-12-2023 Echocardiography Echocardiography Rep ort: Transthoracic Echo [facility] Date of service: 07/12/2023 11:47:34 AM Ordering physician: ÁLVARO LOBO Indication: Chest Pain Symptom(s): Chest Pain and Shortness of breath Technologist: Jimena George [facility] Interpreting physician: Cony Almonte MD PATIENT: [...] motion abnormaliti (more content not included)... Normal [facility] Magnesium SerPl-ncon Magnesium [Mass/Vol] 2.1 mg/dL Normal 1.7-2.3 [facility] Comment on above: Order Comment: Speci men Type: BLOOD SPECIMENOrdering Facility: [facility] Address: [address] [place], [place] [address] Performed By: #### 2 157-6, 08104-3, ####[facility]ORATORYCLIA [id number] [place] [address] [place] Renal function [address] [place] [address] 07-12-2023 Albumin [Mass/Vol] 3.6 g/dL Low 3.9-4.9 [facility] Comment on above: Order Comment: Speci men Type: BLOOD SPECIMENOrdering Facility: [facility] Address: [address] [place], [place] [address] Performed By: #### 2 157-6, 76953-7, ####[facility]ORATORYCLIA [id number] [place] [address] [place] Anion gap [Moles/Vol] 8 mmol/L Low 9-18 [facility] Comment on above: Order Comment: Speci men Type: BLOOD SPECIMENOrdering Facility: [facility] Address: [address] [place] [id number] Performed By: #### 2 157-6, 75030-6, ####[facility]ORATORYCLIA [id number] [place] [id number] [place] Calcium [Mass/Vol] 8.8 mg/dL Normal 8.5-10.2 [facility] Comment on above: Order Comment: Speci men Type: BLOOD SPECIMENOrdering Facility: [facility] Address: [address] [place] [address] Performed By: #### 2 157-6, 56867-0, 52057-7 ####KO LABORATORYCLIA [id number] [place] [address] [place] Chloride [Moles/Vol] 103 mmol/L Normal 97-105 [facility] Comment on above: Order Comment: Speci men Type: BLOOD SPECIMENOrdering Facility: [facility] Address: [address] [place] [address] Performed By: #### 2 157-6, 69652-1, 21113-4 ####KO LABORATORYCLIA [id number] [place] [id number] [place] CO2 [Moles/Vol] 28 mmol/L Normal 22-30 [facility] Comment on above: Order Comment: Speci men Type: BLOOD SPECIMENOrdering Facility: [facility] Address: [address] [place] [address] Performed By: #### 2 157-6, 54791-9, ####KO LABORATORYCLIA [id number] [place] [address] [place] Creatinine [Mass/Vol] 0.95 mg/dL Normal 0.58-0.96 [facility] Comment on above: Order Comment: Speci men Type: BLOOD SPECIMENOrdering Facility: [facility] Address: [address] [place] [address] Performed By: #### 2 157-6, 91938-2, 86704-8 ####KO LABORATORYCLIA [id number] [address] [place] Creatinine and Glomerular filtration rate.predicted panel (S/P/Bld) 62 mL/min/1.73m??? Normal >=60 [facility] Comment on above: Order Comment: Speci men Type: BLOOD SPECIMENOrdering Facility: [facility] Address: [address] [place] [address] Result Comment: Aaron mated Glomerular Filtration Rate [...] actual GFR. Performed By: #### 2 157-6, 75195-1, ####[facility] LABORATORYCLIA [id number] [place] [address] [place] Glucose [Mass/Vol] 89 mg/dL Normal 74-99 [facility] Comment on above: Order Comment: Lenard jesus Type: BLOOD SPECIMENOrdering Facility: [facility] Address: [address] [place], [place] [address] Result Comment: The [place] [employer] Association (ADA) provides guidance for cutoff [...] Standards of Medical Care in Diabetes 2016, [place] [employer]. Diabetes Care. 2016.39(Suppl 1). Performed By: #### 2 157-6, 67562-7, ####[facility] LABORATORYCLIA [id number] [place] [address] [place] Phosphate [Mass/Vol] 3.7 mg/dL Normal 2.7-4.8 [facility] Comment on above: Order Comment: Lenard jesus Type: BLOOD SPECIMENOrdering Facility: [facility] Address: [address] [place] [address] Performed By: #### 2 157-6, 40151-1, ####[facility]ORATORYCLIA [id number] [place] [address] [place] Potassium [Moles/Vol] 3.8 mmol/L Normal 3.7-5.1 [facility] Comment on above: Order Comment: Speci men Type: BLOOD SPECIMENOrdering Facility: [facility] Address: [address] [place], [place] [address] Performed By: #### 2 157-6, 31248-4, 95675-2 ####KO LABORATORYCLIA [id number] [place] [address] [facility] [place] Sodium [Moles/Vol] 139 mmol/L Normal 136-144 [facility] Comment on above: Order Comment: Speci men Type: BLOOD SPECIMENOrdering Facility: [facility] Address: [address] [place] [address] Performed By: #### 2 157-6, 86988-4, 53590-9 ####KO LABORATORYCLIA [id number] [place] [id number] [place] Urea nitrogen [Mass/Vol] 34 mg/dL High 7-21 [facility] Comment on above: Order Comment: Speci men Type: BLOOD SPECIMENOrdering Facility: [facility] Address: [address] [place] [address] Performed By: #### 2 157-6, 65982-7, 57086-1 ####KO LABORATORYCLIA [id number] [place] [id number] [facility] ALLIED HEALTHon 07-11-2023 ALLIED HEALTH HNO ID: [id number] Author: DEJAN HERNANDEZ RT(R) Service: Nuclear Medicine [...] PATIENT PRESENTS WITH AN IMPLANTABLE OR ATTACHED TIME ANALYSIS CLERK: No CREATININE: Creatinine Date Value Ref Range [...] documentation PROCEDURE TYPE: NM Stress: 13.89 mCi Xd34m-Xdsenly was administered IV for Rest Imaging at 09:05 by [facility]. 35.4 mCi Kl39w-Vtshxvg was administered IV for Stress Imaging at 09:50 by [facility]. PATIENT DISCHARGED TO: Floor A Diagnostic radioactive procedure has taken place, with no further precautions necessary other than routine body substance precautions. More information regarding radiation safety can be found using this link: [email or web address]%20Nuclear%20 Medicine%[email or web address] SIGNATURE: RT Kevin(R) PATIENT NAME: Sandra Schmitz DATE: July 11, 2023 TIME: 10:09 AM PAGER/CONTACT #: [facility] CASE MGT INIT Alicia 2023 CASE MGT INIT TOMASA HNO ID: [id number] Author: LUX AREVALO LISW Service: ? Author Type: Corrugator Helper Type: Care Mgt Initial Assessment Filed: 07/11/2023 [...] Current Advance Directive: Health Care Power of Impregnating Helper Current Living Arrangements and Support Lives with: [...] home, General wellness, Ambulate a little better [place] of Choice Explained: Are you interested in [...] 11, 2023 TIME: 11:24 AM CONTACT #: [phone] [facility] CBC W Auto Differential pane l (Bld)on 07-11-2023 Basophils (Bld) [#/Vol] 0.07 10*3/uL Normal <0.11 [facility] Comment on above: Order Comment: Speci men Type: BLOOD SPECIMENOrdering Facility: [facility] Address: [address] [place] [address] Performed By: #### 5 7021-8 ####KO LABORATORYCLIA [id number] [place] [address] [place] Basophils/100 WBC (Bld) 1.0 % Normal [facility] Comment on above: Order Comment: Speci men Type: BLOOD SPECIMENOrdering Facility: [facility] Address: [address] [place] [address] Performed By: #### 5 7021-8 ####KO LABORATORYCLIA [id number] [address] Differential cell count method Nom (Bld) Auto Normal [facility] Comment on above: Order Comment: Speci men Type: BLOOD SPECIMENOrdering Facility: [facility] Address: [address] [place] [address] Performed By: #### 5 7021-8 ####KO LABORATORYCLIA [id number] [place] [address] [place] Eosinophils (Bld) [#/Vol] 0.21 10*3/uL Normal <0.46 [facility] Comment on above: Order Comment: Speci men Type: BLOOD SPECIMENOrdering Facility: [facility] Address: [address] [place] [address] Performed By: #### 5 7021-8 ####KO LABORATORYCLIA [id number] [address] Eosinophils/100 WBC (Bld) 3.0 % Normal [facility] Comment on above: Order Comment: Speci men Type: BLOOD SPECIMENOrdering Facility: [facility] Address: [address] [place] [address] Performed By: #### 5 7021-8 ####KO LABORATORYCLIA [id number] [address] [place] Erythrocyte distribution width (RBC) [Ratio] 14.9 % Normal 11.5-15.0 [facility] Comment on above: Order Comment: Speci men Type: BLOOD SPECIMENOrdering Facility: [facility] Address: [address] [place] [address] Performed By: #### 5 7021-8 ####KO LABORATORYCLIA [id number] [address] [place] Hematocrit (Bld) [Volume fraction] 39.7 % Normal 36.0-46.0 [facility] Comment on above: Order Comment: Speci men Type: BLOOD SPECIMENOrdering Facility: [facility] Address: [address] [place] [address] Performed By: #### 5 7021-8 ####KO LABORATORYCLIA [id number] [address] [place] Hemoglobin (Bld) [Mass/Vol] 12.3 g/dL Normal 11.5-15.5 [facility] Comment on above: Order Comment: Speci men Type: BLOOD SPECIMENOrdering Facility: [facility] Address: [address] [place] [address] Performed By: #### 5 7021-8 ####KO LABORATORYCLIA [id number] [place] [address] [place] Immature granulocytes (Bld) [#/Vol] 0.03 10*3/uL Normal <0.10 [facility] Comment on above: Order Comment: Speci men Type: BLOOD SPECIMENOrdering Facility: [facility] Address: [address] [place] [address] Performed By: #### 5 7021-8 ####KO LABORATORYCLIA [id number] [address] [place] Immature granulocytes/100 WBC (Bld) 0.4 % Normal [facility] Comment on above: Order Comment: Speci men Type: BLOOD SPECIMENOrdering Facility: [facility] Address: [address] [place] [address] Performed By: #### 5 7021-8 ####KO LABORATORYCLIA [id number] [place] [address] Lymphocytes (Bld) [#/Vol] 2.77 10*3/uL Normal 1.00-4.00 [facility] Comment on above: Order Comment: Speci men Type: BLOOD SPECIMENOrdering Facility: [facility] Address: [address] [place] [address] Performed By: #### 5 7021-8 ####KO LABORATORYCLIA [id number] [address] Lymphocytes/100 WBC (Bld) 39.9 % Normal [facility] Comment on above: Order Comment: Speci men Type: BLOOD SPECIMENOrdering Facility: [facility] Address: [address] [place] [address] Performed By: #### 5 7021-8 ####KO LABORATORYCLIA [id number] [address] MCH (RBC) [Entitic mass] 28.2 pg Normal 26.0-34.0 [facility] Comment on above: Order Comment: Speci men Type: BLOOD SPECIMENOrdering Facility: [facility] Address: [address] [place] [address] Performed By: #### 5 7021-8 ####KO LABORATORYCLIA [id number] [address] [place] [facility] MCHC (RBC) [Mass/Vol] 31.0 g/dL Normal 30.5-36.0 [facility] Comment on above: Order Comment: Speci men Type: BLOOD SPECIMENOrdering Facility: [facility] Address: [address] [place] [address] Performed By: #### 5 7021-8 ####KO LABORATORYCLIA [id number] [address] MCV (RBC) [Entitic vol] 91.1 fL Normal 80.0-100.0 [facility] Comment on above: Order Comment: Speci men Type: BLOOD SPECIMENOrdering Facility: [facility] Address: [address] [place] [address] Performed By: #### 5 7021-8 ####KO LABORATORYCLIA [id number] [place] [address] [place] Monocytes (Bld) [#/Vol] 0.60 10*3/uL Normal <0.87 [facility] Comment on above: Order Comment: Speci men Type: BLOOD SPECIMENOrdering Facility: [facility] Address: [address] [place] [address] Performed By: #### 5 7021-8 ####KO LABORATORYCLIA [id number] [place] [address] [place] Monocytes/100 WBC (Bld) 8.6 % Normal [facility] Comment on above: Order Comment: Speci men Type: BLOOD SPECIMENOrdering Facility: [facility] Address: [address] [place] [address] Performed By: #### 5 7021-8 ####KO LABORATORYCLIA [id number] [place] [address] [place] Neutrophils (Bld) [#/Vol] 3.26 10*3/uL Normal 1.45-7.50 [facility] Comment on above: Order Comment: Speci men Type: BLOOD SPECIMENOrdering Facility: [facility] Address: [address] [place] [address] Performed By: #### 5 7021-8 ####KO LABORATORYCLIA [id number] [place] [address] [place] Neutrophils/100 WBC (Bld) 47.1 % Normal [facility] Comment on above: Order Comment: Speci men Type: BLOOD SPECIMENOrdering Facility: [facility] Address: [address] [place] [address] Performed By: #### 5 7021-8 ####KO LABORATORYCLIA [id number] [place] [address] [place] Nucleated RBC (Bld) [#/Vol] 10*3/uL Normal <0.01 [facility] Comment on above: Order Comment: Speci men Type: BLOOD SPECIMENOrdering Facility: [facility] Address: [address] [place] [address] Performed By: #### 5 7021-8 ####KO LABORATORYCLIA [id number] [place] [address] [place] Nucleated RBC/100 WBC (Bld) [Ratio] 0.0 /100 WBC Normal [facility] Comment on above: Order Comment: Speci men Type: BLOOD SPECIMENOrdering Facility: [facility] Address: [address] [place] [address] Performed By: #### 5 7021-8 ####KO LABORATORYCLIA [id number] [place] [address] [place] Platelet mean volume (Bld) [Entitic vol] 10.2 fL Normal 9.0-12.7 [facility] Comment on above: Order Comment: Speci men Type: BLOOD SPECIMENOrdering Facility: [facility] Address: [address] [place] [address] Performed By: #### 5 7021-8 ####KO LABORATORYCLIA [id number] [place] [address] [place] Platelets (Bld) [#/Vol] 290 10*3/uL Normal 150-400 [facility] Comment on above: Order Comment: Speci men Type: BLOOD SPECIMENOrdering Facility: [facility] Address: [address] [place] [address] Performed By: #### 5 7021-8 ####KO LABORATORYCLIA [id number] [place] [address] [place] RBC (Bld) [#/Vol] 4.36 10*6/uL Normal 3.90-5.20 [facility] Comment on above: Order Comment: Speci men Type: BLOOD SPECIMENOrdering Facility: [facility] Address: [address] [place] [address] Performed By: #### 5 7021-8 ####KO LABORATORYCLIA [id number] [place] [address] [place] WBC (Bld) [#/Vol] 6.94 10*3/uL Normal 3.70-11.00 [facility] Comment on above: Order Comment: Speci men Type: BLOOD SPECIMENOrdering Facility: [facility] Address: [address] [place] [address] Performed By: #### 5 7021-8 ####[facility] LABORATORYCLIA [id number] [place] [address] [place] CK SerPl-cCncon 07-11-2023 CK [Catalytic activity/Vol] 49 U/L Normal 42-196 [facility] Comment on above: Order Comment: Speci men Type: BLOOD SPECIMENOrdering Facility: [facility] Address: [address] [place] [address] Performed By: #### 2 4362-6, 6, ####[facility] LABORATORYCLIA [id number] [place] [address] [place] Magnesium SerPl-mCncon 07-11 Magnesium [Mass/Vol] 2.0 mg/dL Normal 1.7-2.3 [facility] Comment on above: Order Comment: Speci men Type: BLOOD SPECIMENOrdering Facility: [facility] Address: [address] [place] [address] Performed By: #### 2 4362-6, 2156-10, ####[facility] LABORATORYCLIA [id number] [place] [address] [place] NM CARDIAC PERF STRESS/PHARM on 07-11-2023 NM CARDIAC PERF STRESS/PHARM * * *Final Report* * * DATE OF EXAM: Jul 11 2023 10:57AM SKIP 0006 - NM CARDIAC PERF STRESS/PHARM / PROCEDURE REASON: Chest pain/anginal equiv, intermediate CAD risk, not treadmill candidate * * * * Physician Interpretation * * * * Stress Oral Surgery Assistant Report: [facility] Date of service: 07/11/2023 9:15:02 AM [...] later. See administered radiotracer and doses below. [facility] Date of service: 07/11/2023 9:15:02 AM [...] Final * * * Stress ECG Report: [facility] Date of service: 07/11/2023 9:15:02 AM Ordering physician: ÁLVARO LOBO food safety specialist: Oumou Piña Power Press Operator: Valery Sung Interpreting physician: Álvaro Lobo MD [...] 101 42 (more content not included)... Normal [facility] NURSING PROGon 07-11-2023 NURSING PROG HNO ID: [id number] Author: MISTY ASCENCIO, RN Service: Nursing Author Type: Registered Nurse Type: Nursing Progress Note Filed: 07/11/2023 14:37 Note Text: PATIENT EDUCATION HEART FAILURE PATIENT NAME: Sandra Schmitz PATIENT LOCATION: [place] [id number] SURVIVAL SKILLS: Low Sodium Diet Weight Monitoring [...] EF @ 29%. Follow Dr Oneill from [facility]. Brief overview of CHF, s/s and management [...] applicable. REFERRAL (RECOMMENDATION): Cardiology Electronically Signed By: Msity Ascencio Normal [facility] Renal function 2000 panelon 07-11-2023 Albumin [Mass/Vol] 3.6 g/dL Low 3.9-4.9 [facility] Comment on above: Order Comment: Ernestinei men Type: BLOOD SPECIMENOrdering Facility: [facility] Address: [address] [place] [address] Performed By: #### 2 4362-6, 2156-10, ####[facility] LABORATORYCLIA [id number] [place] [id number] [place] Anion gap [Moles/Vol] 9 mmol/L Normal 9-18 [facility] Comment on above: Order Comment: Speci men Type: BLOOD SPECIMENOrdering Facility: [facility] Address: [address] [place] [address] Performed By: #### 2 4362-6, 2156-10, ####[facility] LABORATORYCLIA [id number] [place] [id number] [place] Calcium [Mass/Vol] 9.2 mg/dL Normal 8.5-10.2 [facility] Comment on above: Order Comment: Speci men Type: BLOOD SPECIMENOrdering Facility: [facility] Address: [address] [place] [id number] Performed By: #### 2 4362-6, 2156-10, ####KO LABORATORYCLIA [id number] [place] [address] [place] Chloride [Moles/Vol] 103 mmol/L Normal 97-105 [facility] Comment on above: Order Comment: Speci men Type: BLOOD SPECIMENOrdering Facility: [facility] Address: [address] [place] [address] Performed By: #### 2 4362-6, 2156-10, ####KO LABORATORYCLIA [id number] [place] [id number] [place] CO2 [Moles/Vol] 29 mmol/L Normal 22-30 [facility] Comment on above: Order Comment: Speci men Type: BLOOD SPECIMENOrdering Facility: [facility] Address: [address] [place] [address] Performed By: #### 2 4362-6, 2156-10, ####[facility] LABORATORYCLIA [id number] [place] [address] [place] Creatinine [Mass/Vol] 0.90 mg/dL Normal 0.58-0.96 [facility] Comment on above: Order Comment: Speci men Type: BLOOD SPECIMENOrdering Facility: [facility] Address: [address] [place] [address] Performed By: #### 2 4362-6, 2156-10, ####[facility] LABORATORYCLIA [id number] [address] [place] Creatinine and Glomerular filtration rate.predicted panel (S/P/Bld) 66 mL/min/1.73m??? Normal >=60 [facility] Comment on above: Order Comment: Speci men Type: BLOOD SPECIMENOrdering Facility: [facility] Address: [address] [place] [address] Result Comment: Aaron mated Glomerular Filtration Rate [...] By: #### 2 4362-6, 2156-10, ####KO LABORATORYCLIA [id number] [place] [address] [place] Glucose [Mass/Vol] 91 mg/dL Normal 74-99 [facility] Comment on above: Order Comment: [facility] Type: BLOOD SPECIMENOrdering Facility: [facility] Address: [address] [place] [address] Result Comment: The [place] [employer] (ADA) provides guidance for cutoff [...] Standards of Medical Care in Diabetes 2016, [place] [employer]. Diabetes Care. 2016.39(Suppl 1). Performed By: #### 2 4362-6, 2156-10, ####[facility] LABORATORYCLIA [id number] [place] [address] [place] Phosphate [Mass/Vol] 3.9 mg/dL Normal 2.7-4.8 [facility] Comment on above: Order Comment: Lenard jesus Type: BLOOD SPECIMENOrdering Facility: [facility] Address: [address] [place] [address] Performed By: #### 2 4362-6, 2156-10, ####[facility] LABORATORYCLIA [id number] [place] [address] [place] Potassium [Moles/Vol] 4.2 mmol/L Normal 3.7-5.1 [facility] Comment on above: Order Comment: Speci men Type: BLOOD SPECIMENOrdering Facility: [facility] Address: [address] [place], [place] [address] Performed By: #### 2 4362-6, 2156-10, ####KO LABORATORYCLIA [id number] [place] [id number] [facility] Sodium [Moles/Vol] 141 mmol/L Normal 136-144 [facility] Comment on above: Order Comment: Speci men Type: BLOOD SPECIMENOrdering Facility: [facility] Address: [address] [place] [address] Performed By: #### 2 4362-6, 2156-10, ####KO LABORATORYCLIA [id number] [place] [id number] [place] Urea nitrogen [Mass/Vol] 29 mg/dL High 7-21 [facility] Comment on above: Order Comment: Speci men Type: BLOOD SPECIMENOrdering Facility: [facility] Address: [address] [place] [address] Performed By: #### 2 4362-6, 2156-10, ####KO LABORATORYCLIA [id number] [place] [id number] [facility] ALLIED HEALTHon 07-10-2023 ALLIED HEALTH HNO ID: [id number] Author: DANIELLE ESTRELLA RT(Marlee) Service: ? Author [...] PATIENT PRESENTS WITH AN IMPLANTABLE OR ATTACHED TIME ANALYSIS CLERK: No RADIOLOGY DEPARTMENT: General X-ray: Exam(s) Completed: Chest X-Ray PERIPHERAL IV DATA: Not applicable SIGNED BY: RT Maciel(R) July 10, 2023 8:12 AM Normal [facility] CBC W Auto Differential pane l (Bld)on 07-10-2023 Basophils (Bld) [#/Vol] 0.11 10*3/uL High <0.11 [facility] Comment on above: Order Comment: Speci men Type: BLOOD SPECIMENOrdering Facility: [facility] Address: [address] [place] [address] Performed By: #### 5 7021-8 ####KO LABORATORYCLIA [id number] [place] [address] [place] Basophils/100 WBC (Bld) 1.3 % Normal [facility] Comment on above: Order Comment: Speci men Type: BLOOD SPECIMENOrdering Facility: [facility] Address: [address] [place] [address] Performed By: #### 5 7021-8 ####KO LABORATORYCLIA [id number] [place] [address] [place] Differential cell count method Nom (Bld) Auto Normal [facility] Comment on above: Order Comment: Speci men Type: BLOOD SPECIMENOrdering Facility: [facility] Address: [address] [place] [address] Performed By: #### 5 7021-8 ####KO LABORATORYCLIA [id number] [place] [address] [place] Eosinophils (Bld) [#/Vol] 0.26 10*3/uL Normal <0.46 [facility] Comment on above: Order Comment: Speci men Type: BLOOD SPECIMENOrdering Facility: [facility] Address: [address] [place] [address] Performed By: #### 5 7021-8 ####KO LABORATORYCLIA [id number] [place] [address] [place] Eosinophils/100 WBC (Bld) 3.0 % Normal [facility] Comment on above: Order Comment: Speci men Type: BLOOD SPECIMENOrdering Facility: [facility] Address: [address] [place] [address] Performed By: #### 5 7021-8 ####KO LABORATORYCLIA [id number] [place] [address] [place] Erythrocyte distribution width (RBC) [Ratio] 14.8 % Normal 11.5-15.0 [facility] Comment on above: Order Comment: Speci men Type: BLOOD SPECIMENOrdering Facility: [facility] Address: [address] [place] [address] Performed By: #### 5 7021-8 ####KO LABORATORYCLIA [id number] [place] [address] [place] Hematocrit (Bld) [Volume fraction] 42.8 % Normal 36.0-46.0 [facility] Comment on above: Order Comment: Speci men Type: BLOOD SPECIMENOrdering Facility: [facility] Address: [address] [place] [address] Performed By: #### 5 7021-8 ####KO LABORATORYCLIA [id number] [place] [address] [place] Hemoglobin (Bld) [Mass/Vol] 14.0 g/dL Normal 11.5-15.5 [facility] Comment on above: Order Comment: Speci men Type: BLOOD SPECIMENOrdering Facility: [facility] Address: [address] [place] [address] Performed By: #### 5 7021-8 ####KO LABORATORYCLIA [id number] [place] [address] [place] Immature granulocytes (Bld) [#/Vol] 0.05 10*3/uL Normal <0.10 [facility] Comment on above: Order Comment: Speci men Type: BLOOD SPECIMENOrdering Facility: [facility] Address: [address] [place] [address] Performed By: #### 5 7021-8 ####KO LABORATORYCLIA [id number] [place] [address] [place] Immature granulocytes/100 WBC (Bld) 0.6 % Normal [facility] Comment on above: Order Comment: Speci men Type: BLOOD SPECIMENOrdering Facility: [facility] Address: [address] [place] [address] Performed By: #### 5 7021-8 ####KO LABORATORYCLIA [id number] [address] Lymphocytes (Bld) [#/Vol] 3.08 10*3/uL Normal 1.00-4.00 [facility] Comment on above: Order Comment: Speci men Type: BLOOD SPECIMENOrdering Facility: [facility] Address: [address] [place] [address] Performed By: #### 5 7021-8 ####KO LABORATORYCLIA [id number] [address] Lymphocytes/100 WBC (Bld) 35.7 % Normal [facility] Comment on above: Order Comment: Speci men Type: BLOOD SPECIMENOrdering Facility: [facility] Address: [address] [place] [address] Performed By: #### 5 7021-8 ####KO LABORATORYCLIA [id number] [address] MCH (RBC) [Entitic mass] 29.9 pg Normal 26.0-34.0 [facility] Comment on above: Order Comment: Speci men Type: BLOOD SPECIMENOrdering Facility: [facility] Address: [address] [place] [address] Performed By: #### 5 7021-8 ####KO LABORATORYCLIA [id number] [address] MCHC (RBC) [Mass/Vol] 32.7 g/dL Normal 30.5-36.0 [facility] Comment on above: Order Comment: Speci men Type: BLOOD SPECIMENOrdering Facility: [facility] Address: [address] [place] [address] Performed By: #### 5 7021-8 ####KO LABORATORYCLIA [id number] [address] MCV (RBC) [Entitic vol] 91.5 fL Normal 80.0-100.0 [facility] Comment on above: Order Comment: Speci men Type: BLOOD SPECIMENOrdering Facility: [facility] Address: [address] [place] [address] Performed By: #### 5 7021-8 ####KO LABORATORYCLIA [id number] [place] [address] [place] Monocytes (Bld) [#/Vol] 0.68 10*3/uL Normal <0.87 [facility] Comment on above: Order Comment: Speci men Type: BLOOD SPECIMENOrdering Facility: [facility] Address: [address] [place] [address] Performed By: #### 5 7021-8 ####KO LABORATORYCLIA [id number] [place] [address] [place] Monocytes/100 WBC (Bld) 7.9 % Normal [facility] Comment on above: Order Comment: Speci men Type: BLOOD SPECIMENOrdering Facility: [facility] Address: [address] [place] [address] Performed By: #### 5 7021-8 ####KO LABORATORYCLIA [id number] [place] [address] [place] Neutrophils (Bld) [#/Vol] 4.45 10*3/uL Normal 1.45-7.50 [facility] Comment on above: Order Comment: Speci men Type: BLOOD SPECIMENOrdering Facility: [facility] Address: [address] [place] [address] Performed By: #### 5 7021-8 ####KO LABORATORYCLIA [id number] [place] [address] [place] Neutrophils/100 WBC (Bld) 51.5 % Normal [facility] Comment on above: Order Comment: Speci men Type: BLOOD SPECIMENOrdering Facility: [facility] Address: [address] [place] [address] Performed By: #### 5 7021-8 ####KO LABORATORYCLIA [id number] [place] [address] [place] Nucleated RBC (Bld) [#/Vol] 10*3/uL Normal <0.01 [facility] Comment on above: Order Comment: Speci men Type: BLOOD SPECIMENOrdering Facility: [facility] Address: [address] [place] [address] Performed By: #### 5 7021-8 ####KO LABORATORYCLIA [id number] [place] [address] [place] Nucleated RBC/100 WBC (Bld) [Ratio] 0.0 /100 WBC Normal [facility] Comment on above: Order Comment: Speci men Type: BLOOD SPECIMENOrdering Facility: [facility] Address: [address] [place] [address] Performed By: #### 5 7021-8 ####KO LABORATORYCLIA [id number] [place] [address] [place] Platelet mean volume (Bld) [Entitic vol] 10.0 fL Normal 9.0-12.7 [facility] Comment on above: Order Comment: Speci men Type: BLOOD SPECIMENOrdering Facility: [facility] Address: [address] [place] [address] Performed By: #### 5 7021-8 ####KO LABORATORYCLIA [id number] [place] [address] [place] Platelets (Bld) [#/Vol] 313 10*3/uL Normal 150-400 [facility] Comment on above: Order Comment: Speci men Type: BLOOD SPECIMENOrdering Facility: [facility] Address: [address] [place] [address] Performed By: #### 5 7021-8 ####KO LABORATORYCLIA [id number] [place] [address] [place] RBC (Bld) [#/Vol] 4.68 10*6/uL Normal 3.90-5.20 [facility] Comment on above: Order Comment: Speci men Type: BLOOD SPECIMENOrdering Facility: [facility] Address: [address] [place] [address] Performed By: #### 5 7021-8 ####KO LABORATORYCLIA [id number] [place] [address] [place] WBC (Bld) [#/Vol] 8.63 10*3/uL Normal 3.70-11.00 [facility] Comment on above: Order Comment: Speci men Type: BLOOD SPECIMENOrdering Facility: [facility] Address: [address] [place] [address] Performed By: #### 5 7021-8 ####[facility] LABORATORYCLIA [id number] [address] [place] CK TOTAL AND CK-MBon 024 CK [Catalytic activity/Vol] 57 U/L Normal 42-196 [facility] Comment on above: Order Comment: Speci men Type: BLOOD SPECIMENOrdering Facility: [facility] Address: [address] [place] [address] Performed By: #### 3 084-1, 2777-1, [id number], , CKCKMB ####[facility] LABORATORYCLIA [id number] [address] CK.MB [Mass/Vol] 2.3 ng/mL Normal <4.4 [facility] Comment on above: Order Comment: Speci men Type: BLOOD SPECIMENOrdering Facility: [facility] Address: [address] [place] [address] Performed By: #### 3 084-1, 2777-1, [id number], , CKCKMB ####[facility] LABORATORYCLIA [id number] [address] CK.MB [Ratio] Normal [facility] Comment on above: Order Comment: Speci men Type: BLOOD SPECIMENOrdering Facility: [facility] Address: [address] [place] [address] Result Comment: CK M B % not reported with CK <100 U/L. Performed By: #### 3 084-1, 2777-1, [id number], , CKCKMB ####[facility] LABORATORYCLIA [id number] [address] [place] CONSULTon 07-10-2023 CONSULT HNO ID: [id number] Author: ÁLVARO LOBO MD Service: Cardiovascular Medicine Author Type: Physician Type: Consults Filed: 07/10/2023 15:09 Note Text: [facility] Lizy Eduardo Department of Cardiovascular Medicine SECTION OF [facility] Consultation Note Name: Sandra Schmitz : 1945 [...] grade I DD, trace MR, TR, mild SC, asc Ao 3.6c m, atrial septal aneurysm Cardiac cath 10/2021: mod LAD, D1 prox 40%, mild RCA disease dominant, EF 35%. She was seen by EP on 06/12/23 and was planned for ENERGY AUDITOR-D. She follows with Dr. Oneill, last seen in clinic on 06/04/23. 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 Normal [facility] Comprehensive metabolic 2000 panelon 07-10-2023 Albumin [Mass/Vol] 4.2 g/dL Normal 3.9-4.9 [facility] Comment on above: Order Comment: Lenard jesus Type: BLOOD SPECIMENOrdering Facility: [facility] Address: [address] [place] [address] Performed By: #### 3 3762-6, 63403-6, [id number] ####KO LABORATORYCLIA [id number] [address] STATES OF [facility] ALP [Catalytic activity/Vol] 61 U/L Normal 34-123 [facility] Comment on above: Order Comment: Lenard jesus Type: BLOOD SPECIMENOrdering Facility: [facility] Address: [address] [place] [address] Performed By: #### 3 3762-6, 98687-0, [id number] ####KO LABORATORYCLIA [id number] [address] STATES [place] [facility] ALT [Catalytic activity/Vol] 12 U/L Normal 7-38 [facility] Comment on above: Order Comment: Lenard jesus Type: BLOOD SPECIMENOrdering Facility: [facility] Address: [address] [place] [address] Performed By: #### 3 3762-6, 27608-7, [id number] ####KO LABORATORYCLIA [id number] [place] [address] [place] [facility] Anion gap [Moles/Vol] 9 mmol/L Normal 9-18 [facility] Comment on above: Order Comment: Speci men Type: BLOOD SPECIMENOrdering Facility: [facility] Address: [address] [place] [address] Performed By: #### 3 3762-6, 77441-4, [id number] ####KO LABORATORYCLIA [id number] [place] [address] [place] AST [Catalytic activity/Vol] 17 U/L Normal 13-35 [facility] Comment on above: Order Comment: Speci men Type: BLOOD SPECIMENOrdering Facility: [facility] Address: [address] [place] [address] Performed By: #### 3 3762-6, 76040-8, [id number] ####KO LABORATORYCLIA [id number] [place] [address] [place] Bilirubin [Mass/Vol] 0.3 mg/dL Normal 0.2-1.3 [facility] Comment on above: Order Comment: Speci men Type: BLOOD SPECIMENOrdering Facility: [facility] Address: [address] [place] [address] Performed By: #### 3 3762-6, 80186-1, [id number] ####KO LABORATORYCLIA [id number] [address] [place] Calcium [Mass/Vol] 9.9 mg/dL Normal 8.5-10.2 [facility] Comment on above: Order Comment: Speci men Type: BLOOD SPECIMENOrdering Facility: [facility] Address: [address] [place] [address] Performed By: #### 3 3762-6, 31310-1, [id number] ####KO LABORATORYCLIA [id number] [place] [address] [place] Chloride [Moles/Vol] 104 mmol/L Normal 97-105 [facility] Comment on above: Order Comment: Speci men Type: BLOOD SPECIMENOrdering Facility: [facility] Address: [address] [place] [address] Performed By: #### 3 3762-6, 46495-2, [id number] ####KO LABORATORYCLIA [id number] [place] [address] [place] [facility] CO2 [Moles/Vol] 28 mmol/L Normal 22-30 [facility] Comment on above: Order Comment: Lenard jesus Type: BLOOD SPECIMENOrdering Facility: [facility] Address: [address] [place] [address] Performed By: #### 3 3762-6, 52757-3, [id number] ####KO LABORATORYCLIA [id number] [place] [address] [place] Creatinine [Mass/Vol] 0.89 mg/dL Normal 0.58-0.96 [facility] Comment on above: Order Comment: Speci men Type: BLOOD SPECIMENOrdering Facility: [facility] Address: [address] [place] [address] Performed By: #### 3 3762-6, 96344-4, [id number] ####KO LABORATORYCLIA [id number] [address] Creatinine and Glomerular filtration rate.predicted panel (S/P/Bld) 67 mL/min/1.73m??? Normal >=60 [facility] Comment on above: Order Comment: Lenard jesus Type: BLOOD SPECIMENOrdering Facility: [facility] Address: [address] [place] [address] Result Comment: Aaron mated Glomerular Filtration Rate [...] actual GFR. Performed By: #### 3 3762-6, 85419-5, [id number] ####KO LABORATORYCLIA [id number] [address] [place] Glucose [Mass/Vol] 105 mg/dL High 74-99 [facility] Comment on above: Order Comment: Speci men Type: BLOOD SPECIMENOrdering Facility: [facility] Address: [address] [place] [address] Result Comment: The [place] Diabetes Association (ADA) provides guidance for cutoff [...] Standards of Medical Care in Diabetes 2016, [place] [employer]. Diabetes Care. 2016.39(Suppl 1). Performed By: #### 3 3762-6, 99236-6, [id number] ####OK LABORATORYCLIA [id number] [place] [address] [place] Potassium [Moles/Vol] 4.3 mmol/L Normal 3.7-5.1 [facility] Comment on above: Order Comment: Lenard jesus Type: BLOOD SPECIMENOrdering Facility: [facility] Address: [address] [place] [address] Performed By: #### 3 3762-6, 16491-4, [id number] ####KO LABORATORYCLIA [id number] [place] [address] [place] Protein [Mass/Vol] 7.5 g/dL Normal 6.3-8.0 [facility] Comment on above: Order Comment: Lenard jesus Type: BLOOD SPECIMENOrdering Facility: [facility] Address: [address] [place] [address] Performed By: #### 3 3762-6, 71224-2, [id number] ####KO LABORATORYCLIA [id number] [place] [address] [place] Sodium [Moles/Vol] 141 mmol/L Normal 136-144 [facility] Comment on above: Order Comment: Lenard jesus Type: BLOOD SPECIMENOrdering Facility: [facility] Address: [address] [place] [address] Performed By: #### 3 3762-6, 86366-2, [id number] ####KO LABORATORYCLIA [id number] [place] [address] [facility] Urea nitrogen [Mass/Vol] 33 mg/dL High 7-21 [facility] Comment on above: Order Comment: Speci men Type: BLOOD SPECIMENOrdering Facility: [facility] Address: [address] [id number] Performed By: #### 3 3762-6, 17161-4, [id number] ####[facility] LABORATORYCLIA [id number] [place] [id number] [facility] ED NOTEon 07-10-2023 ED NOTE HNO ID: [id number] Author: OLIVERIO RITTER, CARO Service: Nursing Author Type: Registered Nurse Type: ED Notes Filed: 07/10/2023 13:06 Note Text: Report called to 4S RN at this time. [facility] ED NOTE HNO ID: [id number] Author: OLIVERIO RITTER RN Service: Nursing Author Type: Registered Nurse Type: ED Notes Filed: 07/10/2023 12:50 Note Text: Dr. Sams rounding on patient at bedside at this time. [facility] ED NOTE HNO ID: [id number] Author: OLIVERIO RITTER RN Service: Nursing Author Type: Registered Nurse Type: ED Notes Filed: 07/10/2023 12:13 Note Text: Room air ambulatory pulse oximetry obtained at 92-93%. Patient returned to bed. Patient tolerated fairly. She does endorse that she has unsteadiness and dizziness when ambulating. SPO2 90% on RA when returned to bed. Discussed with Dr. Medina at this time. [facility] ED NOTE HNO ID: [id number] Author: BENTLEY PATTON RN Service: ? Author Type: Registered Nurse Type: ED Notes Filed: 07/10/2023 07:50 Note Text: Pt spo2 noted to be 89-90% on room air. Placed on O2, 2lpm via NC. Dr. Medina aware. [facility] ED NOTE HNO ID: [id number] Author: MARY LOU LIGHT, CARO Service: ? Author Type: Registered Nurse Type: ED Notes Filed: 07/10/2023 07:17 Note Text: Chest pressure woke her up out of sleep at approx 0430 C/O chest pressure 6/10 [facility] ED PROV NOTEon 07-10-2023 ED PROV NOTE HNO ID: [id number] Author: JIM MEDINA MD Service: ? Author [...] Mouth/Throat: M (more content not included)... Normal [facility] EKGon 07-10-2023 Electrocardiogram Ventricular Rate : 7 2 BPM Atrial Rate : 72 BPM P-R Interval : 134 ms QRS Duration : 172 ms Q-T Interval : 424 ms QTC Calculation(Bazett) : 464 ms Calculated P [place] : 39 degrees Calculated R [place] : -10 degrees Calculated T [place] : 153 degrees NORMAL SINUS RHYTHM LEFT BUNDLE BRANCH BLOCK ABNORMAL ECG 716 Confirmed by MD MEDINA MICHAEL ([id number]), editor index Alyssa Russell ([id number]) on 07/10/2023 3:39:44 PM NAME : SANDRA SCHMITZ PID : [id number] : 1945 Gender : Female Race : ORD : Procedure Date : Jul 10 2023 07:12:14 Edit Date : Jul 10 2023 15:39:46 Diagnosis: NORMAL SINUS RHYTHM LEFT BUNDLE BRANCH BLOCK ABNORMAL ECG 716 Confirmed by MD MEDINA MICHAEL ([id number]), editor index Alyssa Russell ([id number]) on 07/10/2023 3:39:44 PM Test Reason : Location : 1 : ER ED Overread By : MD MEDINA MICHAEL Edited By : Alyssa Russell Referred By : , Acquired by : Terrie AMADOR [facility] HIGH SENSITIVITY TROPONIN T (INITIAL)on 07-10-2023 Troponin T.cardiac High sensitivity method [Mass/Vol] 25 ng/L High <12 [facility] Comment on above: Order Comment: Speci men Type: BLOOD SPECIMENOrdering Facility: [facility] Address: [address] [place] [address] Result Comment: When assessing risk for acute [...] day MACE. Performed By: #### 3 3762-6, 01602-9, [id number] ####KO LABORATORYCLIA [id number] [place] [address] [place] HIGH SENSITIVITY TROPONIN T (SECOND)on 07-10-2023 Troponin T.cardiac High sensitivity method [Mass/Vol] 25 ng/L High <12 [facility] Comment on above: Order Comment: Lenard jesus Type: BLOOD SPECIMENOrdering Facility: [facility] Address: [address] [place] [address] Result Comment: When assessing risk for acute [...] 30 day MACE. Performed By: #### L [id number] ####KO LABORATORYCLIA [id number] [place] [address] [place] HIGH SENSITIVITY TROPONIN T (THIRD) 3 HRS AFTER INITIALon 07-10-2023 Troponin T.cardiac High sensitivity method [Mass/Vol] 24 ng/L High <12 [facility] Comment on above: Order Comment: Lenard jesus Type: BLOOD SPECIMENOrdering Facility: [facility] Address: [address] [place] [address] Result Comment: When assessing risk for acute [...] MACE. Performed By: #### 3 084-1, 2777-1, [id number], 07097-4, CKCKMB ####KO LABORATORYCLIA [id number] [place] [address] [place] HISTORY PHYSICALon HISTORY PHYSICAL HNO ID: [id number] Author: REMINGTON CAI MD Service: Hospital Medicine Author Type: Physician Type: H&P Filed: 07/10/2023 13:52 Note Text: DEPARTMENT OF HOSPITAL MEDICINE HISTORY AND PHYSICAL EXAM SERVICE DATE: 07/10/2023 SERVICE TIME: 1:49 PM Hospital Medicine/Primary Attending: Remington Cai MD NIGHT AND WEEKEND COVERAGE: [facility] [employer]: Nights: [phone], please page [place] [facility] Night coverage pager [phone]. Admission date: 07/10/2023 MEDICAL DECISION MAKING Reason for Admission: Chest pain Reviewed notes: Interpreted labs: Interpreted imaging indpendently: Interpreted EKG independently: See EKG interpretation below. ASSESSMENT/PLAN Chest v-rjp-zbnyhhltkgov with elevated left hemidiaphragm and bibasilar atelectasis [...] fibrillation. 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 She is to be scheduled for pacer [...] S1: decreased (more content not included)... Normal [facility] Magnesium [Mass/Vol] 2.0 mg/dL Normal 1.7-2.3 [facility] Comment on above: Order Comment: [facility] Type: BLOOD SPECIMENOrdering Facility: [facility] Address: [address] [place] [address] Performed By: #### 3 084-1, 2777-1, [id number], 27613-2, CKCKMB ####[facility] LABORATORYCLIA [id number] [place] [address] [place] NT-proBNP [facility] Natriuretic peptide.B prohormone N-Terminal [Mass/Vol] 3171 pg/mL High <450 [facility] Comment on above: Order Comment: [facility] Type: BLOOD SPECIMENOrdering Facility: [facility] Address: [address] [place] [address] Performed By: #### 3 3762-6, 31706-7, [id number] ####[facility] LABORATORYCLIA [id number] [place] [id number] [place] [facility]ate [facility] Phosphate [Mass/Vol] 3.6 mg/dL Normal 2.7-4.8 [facility] Comment on above: Order Comment: Speci men Type: BLOOD SPECIMENOrdering Facility: [facility] Address: [address] [place] [address] Performed By: #### 3 084-1, 2777-1, [id number], 63357-4, CKCKMB ####[facility] LABORATORYCLIA [id number] [address] Urate SerPl-mCncon Urate [Mass/Vol] 9.1 mg/dL High 2.5-6.6 [facility] Comment on above: Order Comment: Speci men Type: BLOOD SPECIMENOrdering Facility: [facility] Address: [address] [place] [address] Performed By: #### 3 084-1, 2777-1, [id number], 25354-8, CKCKMB ####[facility] LABORATORYCLIA [id number] [address] Urinalysis complete panel (U )on 07-10-2023 Bacteria LM.HPF (Urine sed) [#/Area] Few Abnormal None Seen [facility] Comment on above: Order Comment: Speci men Type: URINE SPECIMENOrdering Facility: [facility] Address: [address] [place] [address] Performed By: #### 2 4356-8 ####[facility] LABORATORYCLIA [id number] [address] Bilirubin Ql (U) Negative Normal Negative [facility] Comment on above: Order Comment: Speci men Type: URINE SPECIMENOrdering Facility: [facility] Address: [address] [place] [address] Performed By: #### 2 4356-8 ####[facility] LABORATORYCLIA [id number] [address] Clarity (Unsp spec) Clear Normal Clear [facility] Comment on above: Order Comment: Speci men Type: URINE SPECIMENOrdering Facility: [facility] Address: [address] [place] [address] Performed By: #### 2 4356-8 ####KO LABORATORYCLIA [id number] [place] [address] [place] Color (U) Yellow Normal Yellow [facility] Comment on above: Order Comment: Speci men Type: URINE SPECIMENOrdering Facility: [facility] Address: [address] [place] [address] Performed By: #### 2 4356-8 ####KO LABORATORYCLIA [id number] [place] [address] [place] Epithelial cells LM.HPF (Urine sed) [#/Area] Few Normal [facility] Comment on above: Order Comment: Speci men Type: URINE SPECIMENOrdering Facility: [facility] Address: [address] [place] [address] Performed By: #### 2 4356-8 ####KO LABORATORYCLIA [id number] [address] [place] Glucose Test strip (U) [Mass/Vol] Negative Normal Negative [facility] Comment on above: Order Comment: Speci men Type: URINE SPECIMENOrdering Facility: [facility] Address: [address] [place] [address] Performed By: #### 2 4356-8 ####KO LABORATORYCLIA [id number] [address] [place] Hemoglobin Ql (U) Negative Normal Negative [facility] Comment on above: Order Comment: Speci men Type: URINE SPECIMENOrdering Facility: [facility] Address: [address] [place] [address] Performed By: #### 2 4356-8 ####KO LABORATORYCLIA [id number] [place] [address] [place] Ketones Ql (U) Negative Normal Negative [facility] Comment on above: Order Comment: Speci men Type: URINE SPECIMENOrdering Facility: [facility] Address: [facility] [place] [address] Performed By: #### 2 4356-8 ####KO LABORATORYCLIA [id number] [address] [place] Leukocyte esterase Test strip Ql (U) Negative Normal Negative [facility] Comment on above: Order Comment: Speci men Type: URINE SPECIMENOrdering Facility: [facility] Address: [address] [place] [address] Performed By: #### 2 4356-8 ####KO LABORATORYCLIA [id number] [place] [address] [place] Nitrite Ql (U) Negative Normal Negative [facility] Comment on above: Order Comment: Speci men Type: URINE SPECIMENOrdering Facility: [facility] Address: [address] [place] [address] Performed By: #### 2 4356-8 ####KO LABORATORYCLIA [id number] [place] [address] [place] pH (U) 6.5 [pH] Normal 5.0-8.0 [facility] Comment on above: Order Comment: Speci men Type: URINE SPECIMENOrdering Facility: [facility] Address: [address] [place] [address] Performed By: #### 2 4356-8 ####KO LABORATORYCLIA [id number] [place] [address] [place] Protein (U) [Mass/Vol] Negative Normal Negative [facility] Comment on above: Order Comment: Speci men Type: URINE SPECIMENOrdering Facility: [facility] Address: [address] [place] [address] Performed By: #### 2 4356-8 ####KO LABORATORYCLIA [id number] [place] [address] [place] RBC LM.HPF (Urine sed) [#/Area] 0-3 /HPF Normal 0-3 /HPF [facility] Comment on above: Order Comment: Speci men Type: URINE SPECIMENOrdering Facility: [facility] Address: [address] [place] [address] Performed By: #### 2 4356-8 ####KO LABORATORYCLIA [id number] [place] [address] [place] Specific gravity (U) [Rel density] <=1.005 Low 1.005-1.030 [facility] Comment on above: Order Comment: Speci men Type: URINE SPECIMENOrdering Facility: [facility] Address: [address] [place] [address] Performed By: #### 2 4356-8 ####KO LABORATORYCLIA [id number] [address] Urobilinogen Ql (U) 0.2 EU/dL Normal 0.2-1.0 EU/dL [facility] Comment on above: Order Comment: Speci men Type: URINE SPECIMENOrdering Facility: [facility] Address: [address] [place] [address] Performed By: #### 2 4356-8 ####[facility] LABORATORYCLIA [id number] [address] [place] WBC LM.HPF (Urine sed) [#/Area] 0-5 /HPF Normal 0-5 /HPF [facility] Comment on above: Order Comment: Speci men Type: URINE SPECIMENOrdering Facility: [facility] Address: [address] [place] [address] Performed By: #### 2 4356-8 ####[facility] LABORATORYCLIA [id number] [address] OF [facility] XR CHEST 2V FRONTAL/LATon XR CHEST 2V [...] tissues: Unremarkable. IMPRESSION: No acute radiographic abnormality. Wafer Fab Operator: KEYANA Transcribe Date/Time: Jul 10 2023 8:19A Dictated by : YESENIA GUZMAN MD This examination was interpreted and the report reviewed and electronically signed by: YESENIA GUZMAN MD on Jul 10 2023 8:20AM EST [id number] [facility] 06-12-2023 [facility] Office Visit (AGCARD POB) ----- SANDRA SCHMITZ ([id number]) 1945 [address] [employer]* Date Time Provider Department 06/12/23 3:20 PM [facility] During your visit today, we recorded the following information about you: Pulse Blood pressure Weight Height 68/minute 115/74 86.2 kg 1.6 m Randa Smith MA 06/12/2023 4:02 PM Signed No cardiac complaints today. FELIPE Rios Sergey Aleksandrovich, MD 06/12/2023 4:02 PM Signed [facility] SECTION OF CARDIAC PACING and ELECTROPHYSIOLOGY OUTPATIENT VISIT DATE June 12, 2023 OUTPATIENT VISIT TYPE NEW PRIMARY CARE PHYSICIAN: Mandeep Houser [phone] [phone] REFERRING PHYSICIAN: Santo Oneill MD. HISTORY OF PRESENT ILLNESS: 77-year-old female with history of nonischemic cardiomyopathy, severe LV systolic function, LVEF of 30% despite GDMT, LBBB with QRS of 170 ms, was referred for consideration of ENERGY AUDITOR-D system implantation for prevention of sudden cardiac [...] on chronic systolic CHF (congestive heart failure) ([facility]) 05/03/2020 Aspiration pneumonia ([facility]) 05/30/2020 Chest pain 05/03/2020 Chest pressure 01/23/2013 Chronic diastolic congestive heart failure ([facility]) 02/14/2021 Clostridium difficile diarrhea 09/28/2020 Complete uterovaginal prolapse Cystocele, midline Essential hypertension 06/14/2020 Homozygous Factor V Leiden mutation ([facility]) 05/03/2020 Hypothyroidism IBS (irritable bowel syndrome) 01/23/2013 [...] syncope. Psychiatric/Behavior (more content not included)... [facility] X[facility] Chest PA and Lateralon IMPRESSION: Stable exam with mild cardiomegaly and nonspecific parenchymal changes in left lung base. Wafer Fab Operator: KEYANA Transcribe Date/Time: May 20 2023 10:19A Dictated by : KRISHNA CRUZ MD This examination was interpreted and the report reviewed and electronically signed by: KRISHNA CRUZ MD on May 20 2023 10:20AM [facility] DIVISION OF RADIOLOGY * * *Final [...] soft tissues: Unremarkable. DIVISION OF RADIOLOGY Provider, [facility] - 05/20/2023 * * *Final Report* * [...] nonspecific parenchymal changes in left lung base. Wafer Fab Operator: PSCB Transcribe Date/Time: May 20 2023 10:19A Dictated by : KRISHNA CRUZ MD This examination was interpreted and the report reviewed and electronically signed by: KRISHNA CRUZ MD on May 20 2023 10:20AM EST [facility] XR Chest PA and LateralOrder ed By: Cc Provider on 05-20-2023 [facility] XR Chest PA and Lateralon Radiology Study observation (narrative) [facility] XR CHEST 2V FRONTAL/LATon [facility] STREP A MOLECULAR (POC)on Procedural Control Valid [facility] Strep A (POCT) Negative Negative [facility] CT ABD/PEL W IVCONon 023 [facility] DXA-AXIAL SKELETONon 023 [facility] VITAMIN D 25 HYDROXYon 07-22 25-hydroxyvitamin D3 [Mass/Vol] 45.2 ng/mL 31.0 - 80.0 ng/mL [facility] CBC panel Auto (Bld)on 07-21 Erythrocyte distribution width (RBC) [Ratio] 14.2 % 11.5 - 15.0 % [facility] Hematocrit (Bld) [Volume fraction] 41.8 % 36.0 - 46.0 % [facility] Hemoglobin (Bld) [Mass/Vol] 13.1 g/dL 11.5 - 15.5 g/dL [facility] MCH (RBC) [Entitic mass] 29.3 pg 26.0 - 34.0 pg [facility] MCHC (RBC) [Mass/Vol] 31.3 g/dL 30.5 - 36.0 g/dL [facility] MCV (RBC) [Entitic vol] 93.5 fL 80.0 - 100.0 fL [facility] Nucleated RBC (Bld) [#/Vol] <0.01 k/uL [facility] Platelet mean volume (Bld) [Entitic vol] 10.6 fL 9.0 - 12.7 fL [facility] Platelets (Bld) [#/Vol] 346 10*3/uL 150 - 400 k/uL [facility] RBC (Bld) [#/Vol] 4.47 10*6/uL 3.90 - 5.2 0 m/uL [facility] WBC (Bld) [#/Vol] 9.77 10*3/uL 3.70 - 11.00 k/uL [facility] Comprehensive metabolic 2000 panelon 07-21-2022 Albumin [Mass/Vol] 4.2 g/dL 3.9 - 4.9 g/dL [facility] ALP [Catalytic activity/Vol] 61 U/L 34 - 123 U/L [facility] ALT [Catalytic activity/Vol] 12 U/L 7 - 38 U/L [facility] Anion gap [Moles/Vol] 8 mmol/L Low 9 - 18 mmol/L [facility] AST [Catalytic activity/Vol] 15 U/L 13 - 35 U/L [facility] Bilirubin [Mass/Vol] 0.6 mg/dL 0.2 - 1 .3 mg/dL [facility] Calcium [Mass/Vol] 9.6 mg/dL 8.5 - 10. 2 mg/dL [facility] Chloride [Moles/Vol] 106 mmol/L High 97 - 10 5 mmol/L [facility] CO2 [Moles/Vol] 28 mmol/L 22 - 30 mmol/L [facility] Creatinine [Mass/Vol] 0.75 mg/dL 0.58 - 0.96 mg/dL [facility] Estimated Glomerular Filtration Rate 83 mL/min/1.73m >=60 mL/min/1.73 m [facility] Glucose [Mass/Vol] 68 mg/dL Low 74 - 99 mg/dL [facility] Potassium [Moles/Vol] 4.3 mmol/L 3.7 - 5.1 mmol/L [facility] Protein [Mass/Vol] 7.0 g/dL 6.3 - 8.0 g/dL [facility] Sodium [Moles/Vol] 142 mmol/L 136 - 144 mmol/L [facility] Urea nitrogen [Mass/Vol] 20 mg/dL 7 - 21 mg/dL [facility] HbA1c (Bld)on 07-21-2022 Average glucose Estimated from glycated hemoglobin (Bld) [Mass/Vol] 117 mg/dL [facility] HbA1c (Bld) [Mass fraction] 5.7 % High 4.3 - 5.6 % [facility] Lipid 1996 panelon Cholesterol [Mass/Vol] 220 mg/dL High <200 mg/dL [facility] Cholesterol in HDL [Mass/Vol] 46 mg/dL >39 mg/dL [facility] Cholesterol in LDL [Mass/Vol] 137 mg/dL High <100 mg/dL [facility] Cholesterol in LDL/Cholesterol in HDL [Mass ratio] 2.98 {ratio} High <2.54 [facility] Cholesterol in VLDL [Mass/Vol] 37 mg/dL High <30 mg/dL [facility] Cholesterol non HDL [Mass/Vol] 174 mg/dL High <130 mg/dL [facility] Cholesterol.total/Chol esterol in HDL [Mass ratio] 4.78 {ratio} <5.10 [facility] Fasting Time 4 hrs [facility] Triglyceride [Mass/Vol] 184 mg/dL High <150 mg/dL [facility] T3 [facility] 07-21-2022 T3 [Mass/Vol] 75 ng/dL Low 79 - 165 ng/dL [facility] T4 FREE/FREE THYROXon 2022 Free T4 [Mass/Vol] 1.6 ng/dL 0.9 - 1.7 ng/dL [facility] TSH [facility] 07-21-2022 TSH Qn 1.880 m[IU]/L 0.270 - 4.200 mIU/L [facility] VITAMIN B12 BLOODon 07-22-19 Cobalamin (Vitamin B12) [Mass/Vol] 246 pg/mL 232 - 1,245 pg/mL [facility] ALGN ALMOND IGEon 05-23-2022 [place] IgE Qn (S) <0.35 KU/L [facility] ALGN CASHEW NUT IGEon 2022 Cashew nut IgE Qn (S) <0.35 KU/L [facility] ALGN GLUTEN IGEon 05-23-2022 Gluten IgE Qn (S) <0.35 kU/l [facility] ALGN PEANUT IGEon 05-23-2022 Peanut IgE Qn (S) <0.35 kU/l [facility] ALGN PECAN NUT IGEon [address] Nut IgE Qn (S) <0.35 kU/l [facility] ALGN WHEAT IGEon 05-23-2022 Wheat IgE Qn (S) <0.35 kU/l [facility] [place] IgE Qn (S)on 05-23-19 [place] IgE RAST class (S) Class 0 Class 0 [facility] Cashew nut IgE Qn (S)on 05-14 Cashew nut IgE RAST class (S) Class 0 Class 0 [facility] Comprehensive metabolic 2000 panelon 05-23-2022 Albumin [Mass/Vol] 4.4 g/dL 3.9 - 4.9 g/dL [facility] ALP [Catalytic activity/Vol] 65 U/L 34 - 123 U/L [facility] ALT [Catalytic activity/Vol] 12 U/L 7 - 38 U/L [facility] Anion gap [Moles/Vol] 12 mmol/L 9 - 18 mmol/L [facility] AST [Catalytic activity/Vol] 25 U/L 13 - 35 U/L [facility] Bilirubin [Mass/Vol] 0.8 mg/dL 0.2 - 1 .3 mg/dL [facility] Calcium [Mass/Vol] 9.9 mg/dL 8.5 - 10. 2 mg/dL [facility] Chloride [Moles/Vol] 101 mmol/L 97 - 10 5 mmol/L [facility] CO2 [Moles/Vol] 25 mmol/L 22 - 30 mmol/L [facility] Creatinine [Mass/Vol] 0.90 mg/dL 0.58 - 0.96 mg/dL [facility] Estimated Glomerular Filtration Rate 67 mL/min/1.73m >=60 mL/min/1.73 m [facility] Glucose [Mass/Vol] 73 mg/dL Low 74 - 99 mg/dL [facility] Potassium [Moles/Vol] 4.7 mmol/L 3.7 - 5.1 mmol/L [facility] Protein [Mass/Vol] 7.6 g/dL 6.3 - 8.0 g/dL [facility] Sodium [Moles/Vol] 138 mmol/L 136 - 144 mmol/L [facility] Urea nitrogen [Mass/Vol] 27 mg/dL High 7 - 21 mg/dL [facility] Gluten IgE Qn (S)on 05-23-19 Gluten IgE RAST class (S) Class 0 Class 0 [facility] Peanut IgE Qn (S)on 05-23-19 Peanut IgE RAST class (S) Class 0 Class 0 [facility] Pecan or [facility] Nut IgE Qn (S)on 05-23-[address] [place] Nut IgE RAST class (S) Class 0 Class 0 [facility] URINE CULTUREon 05-23-2022 Bacteria identified Cx Nom (U) No growth (<1,000 CFU/ml) [facility] Urinalysis complete panel (U )on 05-23-2022 Bilirubin Ql (U) Negative Negative [facility] Clarity (Unsp spec) Clear Clear [facility] Color (U) Light Yellow Yellow [facility] Epithelial cells LM.HPF (Urine sed) [#/Area] Few [facility] Glucose Test strip (U) [Mass/Vol] Negative Trace, Negative [facility] Hemoglobin Ql (U) Negative Negative, Trace [facility] Hyaline casts (Urine sed) [#/Area] 1-3 /LPF Abnormal 0 /LPF [facility] Ketones Ql (U) Negative Trace, Negative [facility] Leukocyte esterase Test strip Ql (U) Negative Negative, 25 Cruz/mL [facility] Nitrite Ql (U) Negative Negative [facility] pH (U) 6.5 [pH] 5.0 - 8.0 [facility] Protein (U) [Mass/Vol] 1+ Abnormal Trace , Negative [facility] RBC LM.HPF (Urine sed) [#/Area] 0-3 /HPF 0-3 /HPF [facility] Specific gravity (U) [Rel density] 1.023 1.005 - 1.030 [facility] Urobilinogen Ql (U) Negative Negative [facility] WBC LM.HPF (Urine sed) [#/Area] 0-5 /HPF 0-5 /HPF [facility] Wheat IgE Qn (S)on Wheat IgE RAST class (S) Class 0 Class 0 [facility] CBC W Auto Differential pane l (Bld)on 05-22-2022 Basophils (Bld) [#/Vol] 0.12 10*3/uL High <0.11 k/uL [facility] Basophils/100 WBC (Bld) 1.4 % [facility] Differential cell count method Nom (Bld) Auto [facility] Eosinophils (Bld) [#/Vol] 0.26 10*3/uL <0.46 k/uL [facility] Eosinophils/100 WBC (Bld) 3.0 % [facility] Erythrocyte distribution width (RBC) [Ratio] 14.6 % 11.5 - 15.0 % [facility] Hematocrit (Bld) [Volume fraction] 44.9 % 36.0 - 46.0 % [facility] Hemoglobin (Bld) [Mass/Vol] 14.2 g/dL 11.5 - 15.5 g/dL [facility] Immature granulocytes (Bld) [#/Vol] 0.03 10*3/uL <0.10 k/uL [facility] Immature granulocytes/100 WBC (Bld) 0.3 % [facility] Lymphocytes (Bld) [#/Vol] 3.76 10*3/uL 1.00 - 4.00 k/uL [facility] Lymphocytes/100 WBC (Bld) 42.8 % [facility] MCH (RBC) [Entitic mass] 29.4 pg 26.0 - 34.0 pg [facility] MCHC (RBC) [Mass/Vol] 31.6 g/dL 30.5 - 36.0 g/dL [facility] MCV (RBC) [Entitic vol] 93.0 fL 80.0 - 100.0 fL [facility] Monocytes (Bld) [#/Vol] 0.82 10*3/uL <0.87 k/uL [facility] Monocytes/100 WBC (Bld) 9.3 % [facility] Neutrophils (Bld) [#/Vol] 3.80 10*3/uL 1.45 - 7.50 k/uL [facility] Neutrophils/100 WBC (Bld) 43.2 % [facility] Nucleated RBC (Bld) [#/Vol] <0.01 k/uL [facility] Nucleated RBC/100 WBC (Bld) [Ratio] 0.0 /100 WBC [facility] Platelet mean volume (Bld) [Entitic vol] 10.8 fL 9.0 - 12.7 fL [facility] Platelets (Bld) [#/Vol] 365 10*3/uL 150 - 400 k/uL [facility] RBC (Bld) [#/Vol] 4.83 10*6/uL 3.90 - 5.2 0 m/uL [facility] WBC (Bld) [#/Vol] 8.79 10*3/uL 3.70 - 11.00 k/uL [facility] No Panel Informationon 12-[address] [facility] [address] ABD/PEL W IVCONon 022 [facility] No Panel InformationOrdered By: Ccf Provider on 09-02-2021 [facility] XR Elbow - left AP and Later jones 09-02-2021 IMPRESSION: NO ACUTE FINDINGS. Wafer Fab Operator: KEYANA Transcribe Date/Time: Sep 02 2021 7:52A [...] - ZZZ_DO_NOT_ USE_DIVISIO N OF RADIOLOGY Provider, [facility] - 09/02/2021 * * *Final Report* * [...] preserved. - IMPRESSION IMPRESSION: NO ACUTE FINDINGS. Wafer Fab Operator: PSCB Transcribe Date/Time: Sep 02 2021 7:52A Dictated by : MALCOM GELLER MD This examination was interpreted and the report reviewed and electronically signed by: MALCOM GELLER MD on Sep 02 2021 7:53AM EST [facility] XR Shoulder - left 2 Viewson 09-02-2021 IMPRESSION: NO ACUTE FINDINGS. Wafer Fab Operator: PSCB Transcribe Date/Time: Sep 02 2021 7:53A [...] - ZZZ_DO_NOT_ USE_DIVISIO N OF RADIOLOGY Provider, [facility] - 09/02/2021 * * *Final Report* * [...] maintained. - IMPRESSION IMPRESSION: NO ACUTE FINDINGS. Wafer Fab Operator: PSCMykel Transcribe Date/Time: Sep 02 2021 7:53A Dictated by : MALCOM GELLER MD This examination was interpreted and the report reviewed and electronically signed by: MALCOM GELLER MD on Sep 02 2021 7:53AM EST [facility] Panel Informationon 09-01 Radiology Study observation (narrative) [facility] KARTHIK SCREENINGon 08-15-2021 [facility] XR Ankle - right AP and Late ral and obliqueon 01-05-2021 IMPRESSION: No radiographic evidence of acute osseous injury. Plantar calcaneal enthesophyte. Wafer Fab Operator: KEYANA Transcribe Date/Time: Jan 05 2021 10:38A [...] plantar calcaneal enthesophyte. DIVISION OF RADIOLOGY Provider, [facility] Skyler Warren - 01/05/2021 * * *Final [...] of acute osseous injury. Plantar calcaneal enthesophyte. [facility]fer [facility] Transcribe Date/Time: Jan 05 2021 10:38A Dictated by : ZEKE TIRADO MD This examination was interpreted and the report reviewed and electronically signed by: ZEKE TIRADO MD on Jan 05 2021 10:39AM EST [facility] Radiology Study observation (narrative) [facility] XR Ankle - right AP and Late ral and obliqueOrdered By: Ccf Provider on 01-05-2021 [facility] XR Toes - left 3 Viewson IMPRESSION: Refer to the result. Wafer Fab Operator: PSCMykel Transcribe Date/Time: Aug 02 2020 12:20P Dictated by : BUCK MARRUFO MD This examination was interpreted and the report reviewed and electronically signed by: BUCK MARRUFO MD on Aug 02 2020 12:25PM [facility] DIVISION OF RADIOLOGY * * *Final [...] proximal interphalangeal joint. DIVISION OF RADIOLOGY Provider, [facility] - 08/02/2020 * * *Final Report* * [...] joint. IMPRESSION IMPRESSION: Refer to the result. Wafer Fab Operator: KEYANA Transcribe Date/Time: Aug 02 2020 12:20P Dictated by : BUCK MARRUFO MD This examination was interpreted and the report reviewed and electronically signed by: BUCK MARRUFO MD on Aug 02 2020 12:25PM EST [facility] Radiology Study observation (narrative) [facility] XR Toes - left 3 ViewsOrdere d By: Ccf Provider on 08-02-2020 [facility] XR CHEST 2V FRONTAL/LATon XR CHEST 2V [...] tissues: Unremarkable. IMPRESSION: No acute radiographic abnormality. Wafer Fab Operator: [facility] Transcribe Date/Time: May 26 2020 9:36A Dictated by : SALLIE BUTTS MD This examination was interpreted and the report reviewed and electronically signed by: SALLIE BUTTS MD on May 26 2020 9:39AM EST Normal [facility] No Panel Informationon 04-27 [facility] BUSINESS SYSTEMS ANALYST - Office Visiton 02-11 BUSINESS SYSTEMS ANALYST - Office Visit Chief Complaint Patient here for pessary check. It is causing her discomfort. Threat Monitoring Analyst Status: Declined History of Present IllnessDr. Kameron [...] 81 MG Oral Tablet Delayed Release; Therapy: (Recorded:[id number]) to Recorded Dispense: 0 Days ; #: Sufficient; Refill: 0; ZAK = N; Record; Last Updated By: Bety Iverson; 01/28/2020 1:21:26 PM Fontanez Concentrate Oral Concentrate; Therapy: (Recorded:[id number]) to Recorded Dispense: 0 Days ; #: Sufficient; Refill: 0; ZAK = N; Record; Last Updated By: Bety Iverson; 01/28/2020 1:21:27 PM Vitamin D3 25 MCG (1000 UT) Oral Tablet; TAKE 1 TABLET DAILY; Therapy: (Recorded:[id number]) to Recorded Dispense: 0 Days ; #: Sufficient Tablet; Refill: 0; ZAK = N; Record; Last Updated By: Bety Iverson; 01/28/2020 1:21:27 PM Vitals Vital Signs Recorded: 44Hkh5834 10:13AM Klsonksu977 Qfbmydtul07 Omwhho404 lb BMI Uhaguivplk51.9 BSA Calculated1.92 Physical Exam Constitutional: Alert and [...] Cx Nom (U) PATIENT: SANDRA SCHMITZ LOCATION: [facility]#: [id number] : 47 AGE: SEX: F ORDERED BY: ISAEL MELO: URINE COLLECTED: 02/04/20 16:53ANTIBIOTICS AT [facility]HA[place].: RECEIVED : 02/05/20 00:18SITE: R E S U L T S URINE CULTURE,BACTERIAL FINAL 02/05/20 18:51 NO SIGNIFICANT GROWTH. [facility] Work Phone: BUSINESS SYSTEMS ANALYST - Office Visiton 01-13 BUSINESS SYSTEMS ANALYST - Office Visit Chief Complaint recheck pessary, refer from DR. Doll History of Present Yzvdrxj37 y.o. W and 1 ectopic with prior [...] Tablet; TAKE 1 TABLET DAILY Requested for: [id number]; Last Rx:[id number] Ordered Rx By: Rafael Frank III; Dispense: 90 Days ; #:90 Tablet; Refill: 1;For: Hypothyroidism; ZAK = N; Print Rx; Last Updated By: Bety Iverson; 01/28/2020 1:21:26 PM Aspirin Adult Low Dose 81 MG Oral Tablet Delayed Release; Therapy: (Recorded:[id number]) to Recorded Dispense: 0 Days ; #: Sufficient; Refill: 0; ZAK = N; Record; Last Updated By: Bety Iverson; 01/28/2020 1:21:26 PM Fontanez Concentrate Oral Concentrate; Therapy: (Recorded:[id number]) to Recorded Dispense: 0 Days ; #: Sufficient; Refill: 0; ZAK = N; Record; Last Updated By: Bety Iverson; 01/28/2020 1:21:27 PM Vitamin D3 25 MCG (1000 UT) Oral Tablet; TAKE 1 TABLET DAILY; Therapy: (Recorded:[id number]) to Recorded Dispense: 0 Days ; #: Sufficient Tablet; Refill: 0; ZAK = N; Record; Last Updated By: Bety Iverson; 01/28/2020 1:21:27 PM Vitals Vital Signs Recorded: 25Ycv8573 02:16PM Tazbckwk915 Nknpaskye72 Height5 ft 3 in Jqhnpu791 lb BMI Jmrxdbnlkn51.43 BSA Calculated1.93 LMPyears ago Gravida2 Para1 Physical [...] (788.1) (R30.0) Orders Cult, Urine; Status:Active; Requested for:[id number]; Perform:Lab Services - Lab To Draw (Non-Blood Test); Due:[id number];Ordered; For:Dysuria; Ordered By:Darren Melo; Urinalysis; Status:Active; Requested for:[id number]; Perform:Lab Services - Lab To Draw (Non-Blood Test); Due:[id number];Ordered; For:Dysuria; Ordered By:Darren Melo; Provider Impressions Utero [...] MICROSCOPICon 02-04-2020 BACTERIA 4+ /HPF Abnormal [place]/[facility] Comment on above: Performed By: #### L IPID #### [address] [address] RBC (Bld) [#/Vol] NONE Normal 0-5 [facility] Comment on above: Performed By: #### L IPID #### [address] [address] SQUAMOUS EPITH. CELLS 3 /HPF Normal [place] inson/[facility] Comment on above: Performed By: #### L IPID #### [address] [address] WBC 1 /HPF Normal 0-5 [place]/[facility] Comment on above: Performed By: #### L IPID #### [address] [address] URINALYSISon 02-04-2020 Appearance (U) Clear Normal CLEAR [place]/P [facility] Comment on above: Performed By: #### U A #### [address] [address] Bilirubin (U) [Mass/Vol] Negative Normal NEGATIVE [place] Comment on above: Performed By: #### U A #### [address] [address] BLOOD Negative Normal NEGATIVE [place]/[facility] Comment on above: Performed By: #### U A #### [address] [address] Color (U) Yellow Normal STRAW,YELLO W [place]/[facility] Comment on above: Performed By: #### U A #### [address] [address] Glucose [Mass/Vol] Negative Normal NEGATIVE [place]/[facility] Comment on above: Performed By: #### U A #### [address] [address] Ketones Ql (U) Negative Normal NEGATIVE [place]/[facility] Comment on above: Performed By: #### U A #### [address] [address] Leukocyte esterase Test strip Ql (U) MODERATE(2+) Abnormal NEGATIVE [place]/[facility] Comment on above: Performed By: #### U A #### [address] [address] Nitrite Ql (U) Negative Normal NEGATIVE [place]/[facility] Comment on above: Performed By: #### U A #### [address] [address] pH (Bld) 6.0 Normal 5.0 - 8.0 [place] Comment on above: Performed By: #### U A #### [address] [address] Protein (U) [Mass/Vol] Negative Normal NEGATIVE [place]/[facility] Comment on above: Performed By: #### U A #### [address] [address] Specific gravity (U) [Rel density] 1.011 Normal 1.005 - 1.035 [place] Comment on above: Performed By: #### U A #### [address] [address] Urobilinogen Qn (U) <2.0 Normal 0.0 - 1.9 [place] son/[facility] Comment on above: Performed By: #### U A #### [address] [address] URINE CULTURE,BACTERIALon URINE CULTURE,BACTERIAL PATIENT: SANDRA SCHMITZ LOCATION: [facility]#: [id number] : 47 AGE: SEX: F ORDERED BY: DARREN MELO SOURCE: URINE COLLECTED: 02/04/20 16:53 ANTIBIOTICS AT RASHA[place].: RECEIVED : 02/05/20 00:18 SITE: R E Eileen U L T S URINE CULTURE,BACTERIAL FINAL 02/05/20 18:51 NO SIGNIFICANT GROWTH. Normal [place]/[facility] Comment on above: Performed By: #### L IPID #### [facility] [address] [place] [address] Urinalysison 02-04-2020 Appearance (U) Clear CLEAR [facility] [employer] Work Phone: Color (U) Yellow See Below [facility] [employer] Work Phone: Comment on above: Reference Range: STR AW,YELLOW Glucose Ql (U) Negative NEGATIVE [facility] [employer] Work Phone: Ketones Ql (U) Negative NEGATIVE [facility] [employer] Work Phone: Leukocyte esterase Test strip Ql (U) MODERATE(2+) Abnormal NEGATIVE [facility] [employer] Work Phone: pH (U) 6.0 [pH] 5.0 - 8.0 [facility] [employer] Work Phone: Protein (U) [Mass/Vol] Negative NEGATIVE [facility] [employer] Work Phone: RBC (U) [#/Vol] Negative NEGATIVE [facility] [employer] Phone: Specific gravity (U) [Rel density] 1.011 See Below [facility] [employer] Phone: Comment on above: Reference Range: 1.0 05 - 1.035 Urinalysis Negative NEGATIVE [facility] [employer] Phone: Urinalysis <2.0 0.0 - 1.9 [facility] [employer] Work Phone: Urinalysis, Microscopicon Bacteria LM.HPF (Urine sed) [#/Area] 4+ Abnormal [facility] Work Phone: RBC (Bld) [#/Vol] NONE 0-5 [facility] [facility] Work Phone: Urinalysis, Microscopic 1 {/HPF} 0-5 [facility] Work Phone: Urinalysis, Microscopic 3 {/HPF} [facility] [employer] Work Phone: BUSINESS SYSTEMS ANALYST - Office Visiton 01-12 BUSINESS SYSTEMS ANALYST - Office Visit Chief Complaint PT here for a PESSARY check from 10/21/2019 States she thinks she might have to change sizes. Threat Monitoring Analyst Declined Bety Iverson CMA History of Present [...] Tablet; TAKE 1 TABLET DAILY Requested for: [id number]; Last Rx:[id number] Ordered Rx By: Rafael Frank III; Dispense: [...] PM Vitals Vital Signs Recorded: 28Jan2020 01:21PM Srnaknpa588 Tzveodykk06 Height5 ft 3 in Ufadkl164 lb BMI Xbrhcniplk56.07 BSA Calculated1.93 Physical Exam Constitutional: Alert and [...] [Ratio] 14.0 % Normal 11.5 - 14.5 [facility] Comment on above: Performed By: #### C BC #### [address] [address] Hematocrit (Bld) [Volume fraction] 45.0 % Normal 36.0 - 46.0 [facility] Comment on above: Performed By: #### C BC #### [address] [address] Hemoglobin (Bld) [Mass/Vol] 14.0 g/dL Normal 12.0 - 16.0 [facility] Comment on above: Performed By: #### C BC #### [address] [address] MCHC (RBC) [Mass/Vol] 31.1 g/dL Low 32.0 - 36.0 [facility] Comment on above: Performed By: #### C BC #### [address] [address] MCV (RBC) [Entitic vol] 93 fL Normal 80 - 100 [place] Comment on above: Performed By: #### C BC #### [address] [address] Platelets (Bld) [#/Vol] 369 10*3/uL Normal 150 - 450 [place]/[facility] Comment on above: Performed By: #### C BC #### [address] [address] RBC (Bld) [#/Vol] 4.83 x10E12/L Normal 4.00 - 5.20 [place] inson/[facility] Comment on above: Performed By: #### C BC #### [address] [address] WBC (Bld) [#/Vol] 8.1 10*3/uL Normal 4.4 - 11.3 [place] on/[facility] Comment on above: Performed By: #### C BC #### [address] [address] COMPREHENSIVE PANELon 2019 Albumin [Mass/Vol] 4.2 g/dL Normal 3.4 - 5.0 [place] on/[facility] Comment on above: Performed By: #### C MP #### [address] [address] ALP [Catalytic activity/Vol] 58 U/L Normal 33 - 136 [place] Comment on above: Performed By: #### C MP #### [address] [address] ALT [Catalytic activity/Vol] 11 U/L Normal 7 - 45 [place] Comment on above: Result Comment: [place] ents treated with Sulfasalazine may generate falsely decreased results for ALT. Performed By: #### C MP #### [address] [address] Anion gap [Moles/Vol] 10 mmol/L Normal 10 - 20 [place] inson/[facility] Comment on above: Performed By: #### C MP #### [address] [address] AST [Catalytic activity/Vol] 15 U/L Normal 9 - 39 [place] Comment on above: Performed By: #### C MP #### [address] [address] Bilirubin [Mass/Vol] 0.4 mg/dL Normal 0.0 - 1.2 [place]/[facility] Comment on above: Performed By: #### C MP #### [address] [address] Calcium [Mass/Vol] 9.5 mg/dL Normal 8.6 - 10.3 [place] on/[facility] Comment on above: Performed By: #### C MP #### [address] [address] Chloride [Moles/Vol] 104 mmol/L Normal 98 - 107 [place] nson/[facility] Comment on above: Performed By: #### C MP #### [address] [address] Creatinine [Mass/Vol] 0.63 mg/dL Normal 0.50 - 1.05 [place]/[facility] Comment on above: Performed By: #### C MP #### [address] [address] GFR- AM. >60 Normal >60 [place]/ [facility] Comment on above: Result Comment: CALC ULATIONS OF ESTIMATED GFR ARE PERFORMED USING THE MDRD STUDY EQUATION FOR THE IDMS-TRACEABLE CREATININE METHODS. CLIN CHEM 2007;53:766-72 Performed By: #### C MP #### [address] [address] GFR-NON AM. >60 Normal >60 [place] son/[facility] Comment on above: Performed By: #### C MP #### [address] [address] Glucose [Mass/Vol] 87 mg/dL Normal 74 - 99 [place] on/[facility] Comment on above: Performed By: #### C MP #### [address] [address] HCO3 (Bld) [Moles/Vol] 31 mmol/L Normal 21 - 32 [place]/[facility] Comment on above: Performed By: #### C MP #### [address] [address] Potassium [Moles/Vol] 4.4 mmol/L Normal 3.5 - 5.3 [place] inson/[facility] Comment on above: Performed By: #### C MP #### [address] [address] Protein [Mass/Vol] 7.6 g/dL Normal 6.4 - 8.2 [place] on/[facility] Comment on above: Performed By: #### C MP #### [address] [address] Sodium [Moles/Vol] 141 mmol/L Normal 136 - 145 [place] on/[facility] Comment on above: Performed By: #### C MP #### [address] [address] Urea nitrogen [Mass/Vol] 13 mg/dL Normal 6 - 23 [place]/[facility] Comment on above: Performed By: #### C MP #### [address] [address] [facility]acon 01-22-2020 Cholesterol [Mass/Vol] 248 mg/dL above hig h threshold 0 - 199 [facility] [employer] Work Phone: Comment on above: . AGE [...] dosing. Cholesterol in HDL [Mass/Vol] 51.9 mg/dL [facility] [employer] Phone: Comment on above: . AGE VERY LOW LOW N ORMAL HIGH 0-19 Y < 35 < 40 40-45 ---- 20-24 Y ---- < 40 >45 ---- >24 Y ---- < 40 40-60 >60. Hematologyon 01-22-2020 Hematocrit (Bld) [Volume fraction] 45.0 % See Below [facility] [employer] Phone: Comment on above: Reference Range: 36. 0 - 46.0 Hemoglobin (Bld) [Mass/Vol] 14.0 g/dL See Below [facility] [employer] Phone: Comment on above: Reference Range: 12. 0 - 16.0 MCV (RBC) [Entitic vol] 93 fL 80 - 100 [facility] [employer] Work Phone: Platelets (Bld) [#/Vol] 369 {x10E9/L} 150 - 450 [facility] [employer] Phone: RBC (Bld) [#/Vol] 4.83 {x10E12/L} See Below [facility] [employer] Phone: Comment on above: Reference Range: 4.0 0 - 5.20 WBC (Bld) [#/Vol] 8.1 {x10E9/L} 4.4 - 11.3 [facility] [employer] Work Phone: LIPID PANEL NON-FASTINGon Cholesterol [Mass/Vol] 248 mg/dL High 0 - 199 [facility] Comment on above: Result Comment: . [...] dosing. Performed By: #### L IPIN #### [address] [address] Cholesterol in HDL [Mass/Vol] 51.9 mg/dL Normal [place] Comment on above: Result Comment: . AGE VERY LOW LOW NORMAL HIGH 0-19 Y < 35 < 40 40-45 ---- 20-24 Y ---- < 40 >45 ---- >24 Y ---- < 40 40-60 >60 . Performed By: #### L IPIN #### [address] [address] Cholesterol.total/Chol esterol in HDL [Mass ratio] 4.8 {ratio} Normal [place]/[facility] Comment on above: Result Comment: REF VALUES DESIRABLE < 3.4 HIGH RISK > 5.0 Performed By: #### L IPIN #### [address] [address] NON-HDL CHOLESTEROL 196 mg/dL Normal [facility] Comment on above: Result Comment: AGE DESIRABLE BORDERLINE HIGH HIGH VERY HIGH 0-19 Y 0 - 119 120 - 144 >/= 145 >/= 160 20-24 Y 0 - 149 150 - 189 >/= 190 ---- >24 Y 30 MG/DL ABOVE LDL CHOLESTEROL GOAL . Performed By: #### L IPIN #### [address] [address] Metabolic Panelon 01-22-2020 ALP [Catalytic activity/Vol] 58 U/L 33 - 136 [facility] Work Phone: Anion gap [Moles/Vol] 10 mmol/L 10 - 20 [facility] [employer] Work Phone: Bilirubin [Mass/Vol] 0.4 mg/dL 0.0 - 1.2 [facility] [employer] Work Phone: Calcium [Mass/Vol] 9.5 mg/dL 8.6 - 10.3 [facility] [employer] Phone: Chloride [Moles/Vol] 104 mmol/L 98 - 107 [facility] [employer] Work Phone: CO2 [Moles/Vol] 31 mmol/L 21 - 32 [facility] -N [facility] [employer] Work Phone: Creatinine [Mass/Vol] 0.63 mg/dL See Below [facility] [employer] Phone: Comment on above: Reference Range: 0.5 0 - 1.05 Glucose [Mass/Vol] 87 mg/dL 74 - 99 [facility] are-N [facility] [employer] Phone: Potassium [Moles/Vol] 4.4 mmol/L 3.5 - 5.3 [facility] [employer] Phone: Protein [Mass/Vol] 7.6 g/dL 6.4 - 8.2 [facility] are-N [facility] [employer] Phone: Sodium [Moles/Vol] 141 mmol/L 136 - 145 [facility] are-N [facility] [employer] Phone: Urea nitrogen [Mass/Vol] 13 mg/dL 6 - 23 [facility] [employer] Work Phone: Otheron 01-22-2020 Albumin BCP dye [Mass/Vol] 4.2 g/dL 3.4 - 5.0 [facility] [employer] Work Phone: ALT With P-5'-P [Catalytic activity/Vol] 11 U/L 7 - 45 [facility] [employer] Phone: Comment on above: Patients treated wit h Sulfasalazine may generate falsely decreased results for ALT. AST With P-5'-P [Catalytic activity/Vol] 15 U/L 9 - 39 [employer] Phone: Cholesterol non HDL [Mass/Vol] 196 mg/dL [employer] Phone: Comment on above: AGE DESIRABLE BORDER LINE HIGH HIGH VERY HIGH 0-19 Y 0 - 119 120 - 144 >/= 145 >/= 160 20-24 Y 0 - 149 150 - 189 >/= 190 ---- >24 Y 30 MG/DL ABOVE LDL CHOLESTEROL GOAL. Cholesterol.total/Chol esterol in HDL [Mass ratio] 4.8 {ratio} [employer] Phone: Comment on above: REF VALUESDESIRABLE < 3.4HIGH RISK > 5.0 Erythrocyte distribution width (RBC) [Ratio] 14.0 % See Below [employer] Phone: Comment on above: Reference Range: 11. 5 - 14.5 MCHC (RBC) [Mass/Vol] 31.1 g/dL below low threshold See Below [employer] Phone: Comment on above: Reference Range: 32. 0 - 36.0 >60 >60 [employer] Phone: Comment on above: CALCULATIONS OF AARON MATED GFR ARE PERFORMED USING THE MDRD STUDY EQUATION FOR THE IDMS-TRACEABLE CREATININE METHODS. CLIN CHEM 2007;53:766-72 TSHon 01-22-2020 TSH Qn 3.22 m[IU]/L Normal 0.44 - 3.98 [facility] Comment on above: Result Comment: TSH testing is performed using different testing methodology at [facility] than at other [facility] [facility]. Direct result comparisons should only be made within the same method. Performed By: #### [facility] #### [facility] [address] [place] [address] TSH - Thyroid Stimulating Ho rmone, Serumon 01-22-2020 TSH Qn 3.22 {mIU/L} See Below [employer] Phone: Comment on above: Reference Range: 0.4 4 - 3.98 TSH testing is performed using different testing methodology at [facility] than at other [facility] [facility]. Direct result comparisons should only be made within the same method. BUSINESS SYSTEMS ANALYST - Office Visiton BUSINESS SYSTEMS ANALYST - Office Visit Chief Complaint 3 month [...] Vital Signs Recorded: 21Oct2019 01:20PMRecorded: 21Oct2019 01:19PM [id number] Risvlakdi83 Wvusce793 lb BMI Eanqenwplf00.54 BSA Calculated1.91 Physical Exam Constitutional: Alert and [...] [Ratio] 14.2 % Normal 11.5 - 14.5 [facility] Comment on above: Performed By: #### C BC #### [address] [address] Hematocrit (Bld) [Volume fraction] 45.4 % Normal 36.0 - 46.0 [facility] Comment on above: Performed By: #### C BC #### [facility] [address] [place] [id number] Hemoglobin (Bld) [Mass/Vol] 13.9 g/dL Normal 12.0 - 16.0 [facility] Comment on above: Performed By: #### C BC #### [address] [address] MCHC (RBC) [Mass/Vol] 30.6 g/dL Low 32.0 - 36.0 Ro binson/[facility] Comment on above: Performed By: #### C BC #### [address] [address] MCV (RBC) [Entitic vol] 92 fL Normal 80 - 100 [place] Comment on above: Performed By: #### C BC #### [address] [address] Platelets (Bld) [#/Vol] 349 10*3/uL Normal 150 - 450 [place] Comment on above: Performed By: #### C BC #### [address] [address] RBC (Bld) [#/Vol] 4.91 x10E12/L Normal 4.00 - 5.20 Ronn inson/[facility] Comment on above: Performed By: #### C BC #### [address] [address] WBC (Bld) [#/Vol] 8.0 10*3/uL Normal 4.4 - 11.3 [place] on/[facility] Comment on above: Performed By: #### C BC #### [address] [address] COMPREHENSIVE PANELon 2019 Albumin [Mass/Vol] 3.9 g/dL Normal 3.4 - 5.0 [place] on/[facility] Comment on above: Performed By: #### C MP #### [address] [address] ALP [Catalytic activity/Vol] 66 U/L Normal 33 - 136 [facility] Comment on above: Performed By: #### C MP #### [address] [address] ALT [Catalytic activity/Vol] 10 U/L Normal 7 - 45 [place] Comment on above: Result Comment: Shelby ents treated with Sulfasalazine may generate falsely decreased results for ALT. Performed By: #### C MP #### [address] [address] Anion gap [Moles/Vol] 10 mmol/L Normal 10 - 20 [facility]n inson/[facility] Comment on above: Performed By: #### C MP #### [address] [address] AST [Catalytic activity/Vol] 14 U/L Normal 9 - 39 [place] Comment on above: Performed By: #### C MP #### [address] [address] Bilirubin [Mass/Vol] 0.5 mg/dL Normal 0.0 - 1.2 [place] nson/[facility] Comment on above: Performed By: #### C MP #### [place] [address] Calcium [Mass/Vol] 9.1 mg/dL Normal 8.6 - 10.3 [place] on/[facility] Comment on above: Performed By: #### C MP #### [place] [address] Chloride [Moles/Vol] 106 mmol/L Normal 98 - 107 [place] nson/[facility] Comment on above: Performed By: #### C MP #### [address] [address] Creatinine [Mass/Vol] 0.59 mg/dL Normal 0.50 - 1.05 [place] binson/[facility] Comment on above: Performed By: #### C MP #### [address] [address] GFR- AM. >60 Normal >60 [place]/ [facility] Comment on above: Result Comment: CALC ULATIONS OF ESTIMATED GFR ARE PERFORMED USING THE MDRD STUDY EQUATION FOR THE IDMS-TRACEABLE CREATININE METHODS. CLIN CHEM 2007;53:766-72 Performed By: #### C MP #### [address] [address] GFR-NON AM. >60 Normal >60 Robert son/[facility] Comment on above: Performed By: #### C MP #### [address] [address] Glucose [Mass/Vol] 75 mg/dL Normal 74 - 99 [place] on/[facility] Comment on above: Performed By: #### C MP #### [address] [address] HCO3 (Bld) [Moles/Vol] 29 mmol/L Normal 21 - 32 [facility] Comment on above: Performed By: #### C MP #### [address] [address] Potassium [Moles/Vol] 4.2 mmol/L Normal 3.5 - 5.3 Ronn inson/[facility] Comment on above: Performed By: #### C MP #### [address] [address] Protein [Mass/Vol] 6.9 g/dL Normal 6.4 - 8.2 [place] on/[facility] Comment on above: Performed By: #### C MP #### [address] [address] Sodium [Moles/Vol] 141 mmol/L Normal 136 - 145 [place] on/[facility] Comment on above: Performed By: #### C MP #### [address] [address] Urea nitrogen [Mass/Vol] 17 mg/dL Normal 6 - 23 [place] Comment on above: Performed By: #### C MP #### [address] [address] LIPID PANEL (CORONARY RISK 2 )on 07-22-2019 Cholesterol [Mass/Vol] 243 mg/dL High 0 - 199 [facility] b[facility] Comment on above: Result Comment: . [...] dosing. Performed By: #### L IPID #### [address] [address] Cholesterol in HDL [Mass/Vol] 47.0 mg/dL Normal [facility] Comment on above: Result Comment: . AGE VERY LOW LOW NORMAL HIGH 0-19 Y < 35 < 40 40-45 ---- 20-24 Y ---- < 40 >45 ---- >24 Y ---- < 40 40-60 >60 . Performed By: #### L IPID #### [address] [address] Cholesterol in LDL [Mass/Vol] 151 mg/dL High 0 - 99 [facility] Comment on above: Result Comment: . NEAR BORD AGE DESIRABLE OPTIMAL HIGH HIGH VERY HIGH 0-19 Y 0 - 109 --- 110-129 >/= 130 ---- 20-24 Y 0 - 119 --- 120-159 >/= 160 ---- >24 Y 0 - 99 100-129 130-159 160-189 >/=190 . Performed By: #### L IPID #### [address] [address] Cholesterol in VLDL [Mass/Vol] 45 mg/dL High 0 - 40 [facility] Comment on above: Performed By: #### L IPID #### [address] [address] Cholesterol.total/Chol esterol in HDL [Mass ratio] 5.2 {ratio} Abnormal [facility] Comment on above: Result Comment: REF VALUES DESIRABLE < 3.4 HIGH RISK > 5.0 Performed By: #### L IPID #### [address] [address] NON-HDL CHOLESTEROL 196 mg/dL Normal Robert son/[facility] Comment on above: Result Comment: AGE DESIRABLE BORDERLINE HIGH HIGH VERY HIGH 0-19 Y 0 - 119 120 - 144 >/= 145 >/= 160 20-24 Y 0 - 149 150 - 189 >/= 190 ---- >24 Y 30 MG/DL ABOVE LDL CHOLESTEROL GOAL . Performed By: #### L IPID #### [facility] [address] [place] [address] Triglyceride [Mass/Vol] 225 mg/dL High 0 - 149 [place] Comment on above: Result Comment: . [...] dosing. Performed By: #### L IPID #### [address] [address] BUSINESS SYSTEMS ANALYST - Office Visiton 07-12 BUSINESS SYSTEMS ANALYST - Office Visit Chief Complaint Pessary Follow Up History of Present Illness here for recheck of pessary, no bleeding. moving to [place] Review of Systems Constitutional: no fever, no [...] Hypothyroidism; ZAK = N; Verified Transmission to [facility]; Last Updated By: [employer]; 03/18/2019 8:27:37 AM Aspirin Adult Low Dose [...] AM Vitals Vital Signs Recorded: 22Jul2019 11:25AM Dipucrve515 Sqnslkjwp28 Dyxiel710 lb Physical Exam Constitutional: Alert and in [...] records release Signatures Electronically signed by : Mnae Solis DO; Jul 22 2019 11:50AM EST (Author) Normal Ratify TSHon 07-22-2019 TSH Qn 2.12 m[IU]/L Normal 0.44 - 3.98 [facility] Comment on above: Result Comment: Note new pediatric reference range as of 07/17/2019. TSH testing is performed using different testing methodology at [facility] than at other [facility] [facility]. Direct result comparisons should only be made within the same method. Performed By: #### T SH2 #### [facility] [address] [place] [address] VITAMIN D, 25-HYDROXYon 07-12 VITAMIN D, 25-HYDROXY 31 ng/mL Normal Ronn ins/[facility] Comment on above: Result Comment: . DEFICIENCY: < 20 NG/ML INSUFFICIENCY: 20-29 NG/ML SUFFICIENCY: 30-100 NG/ML THIS ASSAY ACCURATELY QUANTIFIES THE SUM OF VITAMIN D3, 25-HYDROXY AND VIT D2,25-HYDROXY. Performed By: #### V TDOH #### [facility] [address] [place] [address] CBCon 01-22-2019 Erythrocyte distribution width (RBC) [Ratio] 14.8 % Normal 11.4-16.0 [facility] Hematocrit (Bld) [Volume fraction] 42.5 % Normal 34.7-44.9 [facility] Hemoglobin (Bld) [Mass/Vol] 14.1 g/dL Normal 11.3-15.6 [facility] MCH (RBC) [Entitic mass] 29.1 pg Normal 26.5-33.0 [facility] MCHC (RBC) [Mass/Vol] 33.1 g/dL Normal 32.6-36.0 [facility] MCV (RBC) [Entitic vol] 87.7 fL Normal 80.0-100.0 [facility] Mean Plt Vol 8.8 fL Normal 7.2-10.3 [facility] Platelets (Bld) [#/Vol] 362 10*3/uL Normal 144-400 [facility] RBC (Bld) [#/Vol] 4.84 x10E12/L Normal 3.78-5.45 [facility] WBC (Bld) [#/Vol] 7.4 10*3/uL Normal 3.5-11.5 [facility] CMPon 01-22-2019 Albumin [Mass/Vol] 4.0 g/dL Normal 3.5-5.0 [facility] Alk Phos 62 IU/L Normal 32-91 [facility] ALT [Catalytic activity/Vol] 12 U/L Low 14-63 [facility] Anion gap [Moles/Vol] 11.0 mmol/L Normal 5.0-19.0 [facility] AST [Catalytic activity/Vol] 18 U/L Normal 15-41 [facility] Bilirubin [Mass/Vol] 0.5 mg/dL Normal 0.3-1.2 [facility] Bun/CretRatio 18.1 Normal [facility] Calcium [Mass/Vol] 9.5 mg/dL Normal 8.1-10.1 [facility] Chloride [Moles/Vol] 104 mmol/L Normal 98-107 [facility] CO2 [Moles/Vol] 25 mmol/L Normal 22-32 [facility] Creatinine [Mass/Vol] 0.72 mg/dL Normal 0.60-1.30 [facility] Glucose [Mass/Vol] 84 mg/dL Normal 70-100 [facility] Osmolality-Calc 279 mOsm/kg Normal [facility] Potassium [Moles/Vol] 4.0 mmol/L Normal 3.4-5.1 [facility] Protein [Mass/Vol] 7.3 g/dL Normal 6.5-8.1 [facility] Sodium [Moles/Vol] 140 mmol/L Normal 136-144 [facility] Urea nitrogen [Mass/Vol] 13 mg/dL Normal 8-26 [facility] LDL Calculatedon 01-22-2019 Cholesterol in LDL [Mass/Vol] 124 mg/dL Normal [facility] Comment on above: Result Comment: Calculated LDL is unreliable when Triglyceride result is greater than 400. TSHon 01-22-2019 TSH Qn 2.18 uIU/mL Normal 0.34-5.60 [facility] Vit D 25OHon 01-22-2019 Vit D 25-OH 22 ng/mL Normal [facility] Comment on above: Result Comment: Deficient: Less than 20 ng/mL Insufficient: 20 to less than 30 ng/mL Sufficient: 30 to 100 ng/mL Upper Safety Limit: Greater than 100 ng/mL ZLipidon 01-22-2019 Cholesterol [Mass/Vol] 219 mg/dL High 0-200 [facility] Cholesterol in HDL [Mass/Vol] 51 mg/dL Normal [facility] Triglyceride [Mass/Vol] 222 mg/dL High 0-149 [facility] JOSÉ ANTONIO/MAMMO SCRN DIGIT BILon 0 12-06-2018 Bilirubin [Mass/Vol] Patient Name: SANDRA SCHMITZ STUDY: JOSÉ ANTONIO/MAMMO SCRN DIGIT MADDI; 12/05/2018 12:40 pm INDICATION: Screening. COMPARISON: 08/22/2017 ACCESSION NUMBER(S): [id number] ORDERING CLINICIAN: MANE SOLIS FINDINGS: The breasts are almost entirely fatty. No suspicious masses or calcifications are identified. This study was interpreted with CAD. Markers: Torres Martinez- skin lesion; triangle- palpable abnormality IMPRESSION: No mammographic evidence of malignancy. BI-RADS CATEGORY: Category: 1 - Negative. Recommendation: Continued age appropriate screening mammography For any future breast imaging appointments, please call [phone] ([phone]). Dictated by: Electronically Signed by: Isiah Dacosta Electronically Signed on: 12/06/2018 4:18 PM Normal [facility] NUC/HIDA W/ CCKon 11-08-2018 NUC/HIDA W/ CCK Patient Name: SANDRA SCHMITZ STUDY: NUC/HIDA W/ CCK; 11/08/2018 3:09 pm INDICATION: RUQ PAIN. COMPARISON: Ultrasound of the abdomen 10/21/2018, CT of the abdomen 10/31/2018 ACCESSION NUMBER(S): [id number] ORDERING CLINICIAN: LC MCCARTHY TECHNIQUE: DIVISION OF [...] as stated. This study was interpreted at [facility], [place], [place]. Dictated by: Electronically Signed by: Moises Macdonald Electronically Signed on: 11/08/2018 3:40 PM Normal [facility] JOSÉ ANTONIO/CT ABD/PELVIS WITHon JOSÉ ANTONIO/CT ABD/PELVIS WITH Patient Name: SANDRA SCHMITZ STUDY: Unremarkable. JOSÉ ANTONIO/CT ABD/PELVIS WITH; 10/31/2018 12:26 pm INDICATION: PAIN. COMPARISON: 08/22/2017 ACCESSION NUMBER(S): [id number] ORDERING CLINICIAN: LC MCCARTHY TECHNIQUE: CT of [...] Electronically Signed on: 11/04/2018 1:[address] [facility] Creaton 10-29-2018 Creatinine [Mass/Vol] 0.64 mg/dL Normal 0.60-1.30 [facility] RUL/ABDOMEN LIMITEDon 2018 RUL/ABDOMEN LIMITED Patient Name: SANDRA SCHMITZ STUDY: RUL/ABDOMEN LIMITED; 10/21/2018 9:19 am INDICATION: RUQ ABD PAIN--EAL GB. COMPARISON: None. ACCESSION NUMBER(S): [id number] ORDERING CLINICIAN: LC MCCARTHY TECHNIQUE: Multiple images [...] Electronically Signed on: 10/21/2018 10:09 AM Normal [facility] CBCon 08-08-2018 Erythrocyte distribution width (RBC) [Ratio] 15.1 % Normal 11.4-16.0 [facility] Hematocrit (Bld) [Volume fraction] 42.3 % Normal 34.7-44.9 [facility] Hemoglobin (Bld) [Mass/Vol] 13.9 g/dL Normal 11.3-15.6 [facility] MCH (RBC) [Entitic mass] 28.7 pg Normal 26.5-33.0 [facility] MCHC (RBC) [Mass/Vol] 32.8 g/dL Normal 32.6-36.0 [facility] MCV (RBC) [Entitic vol] 87.7 fL Normal 80.0-100.0 [facility] Mean Plt Vol 8.7 fL Normal 7.2-10.3 [facility] Platelets (Bld) [#/Vol] 367 10*3/uL Normal 144-400 [facility] RBC (Bld) [#/Vol] 4.82 x10E12/L Normal 3.78-5.45 [facility] WBC (Bld) [#/Vol] 7.4 10*3/uL Normal 3.5-11.5 [facility] CMPon 08-08-2018 Albumin [Mass/Vol] 4.0 g/dL Normal 3.5-5.0 [facility] Alk Phos 56 IU/L Normal 32-91 [facility] ALT [Catalytic activity/Vol] 12 U/L Low 14-63 [facility] Anion gap [Moles/Vol] 12.0 mmol/L Normal 5.0-19.0 [facility] AST [Catalytic activity/Vol] 22 U/L Normal 15-41 [facility] Bilirubin [Mass/Vol] 0.3 mg/dL Normal 0.3-1.2 [facility] Bun/CretRatio 20.2 Normal [facility] Calcium [Mass/Vol] 9.1 mg/dL Normal 8.1-10.1 [facility] Chloride [Moles/Vol] 102 mmol/L Normal 98-107 [facility] CO2 [Moles/Vol] 27 mmol/L Normal 22-32 [facility] Creatinine [Mass/Vol] 0.84 mg/dL Normal 0.60-1.30 [facility] Glucose [Mass/Vol] 80 mg/dL Normal 70-100 [facility] Osmolality-Calc 282 mOsm/kg Normal [facility] Potassium [Moles/Vol] 3.9 mmol/L Normal 3.4-5.1 [facility] Protein [Mass/Vol] 7.3 g/dL Normal 6.5-8.1 [facility] Sodium [Moles/Vol] 141 mmol/L Normal 136-144 [facility] Urea nitrogen [Mass/Vol] 17 mg/dL Normal 8-26 [facility] LDL Calculatedon 08-08-2018 Cholesterol in LDL [Mass/Vol] 144 mg/dL Normal [facility] Comment on above: Result Comment: Calculated LDL is unreliable when Triglyceride result is greater than 400. ZLipidon 08-08-2018 Cholesterol [Mass/Vol] 237 mg/dL High 0-200 [facility] Cholesterol in HDL [Mass/Vol] 49 mg/dL Normal [facility] Triglyceride [Mass/Vol] 222 mg/dL High 0-149 [facility] Vital Signs Date Time Vital Sign Value Performing Clinician Facility 11-13-2024 23:09-0400 Body temperature 98 [degF] Dr. Mandeep Houser DO Work Phone: [facility] 11-13-2024 23:09-0400 Diastolic blood pressure 63 mm[Hg] Dr. Mandeep Houser DO Work Phone: [facility] 11-13-2024 23:09-0400 Heart rate 65 /min Dr. Mandeep Houser DO Work Phone: [facility] 11-13-2024 23:09-0400 Respiratory rate 17 /min Dr. Mandeep Houser DO Work Phone: [facility] 11-13-2024 23:09-0400 SaO2% (BldA) [Mass fraction] 100 % Dr. Mandeep Houser DO Work Phone: [facility] 11-13-2024 23:09-0400 Systolic blood pressure 101 mm[Hg] Dr. Mandeep Houser DO Work Phone: [facility] 11-13-2024 17:55-0400 Body height 160.[address] Mandeep Houser DO Work Phone: [facility] 11-13-2024 17:55-0400 Body mass index (BMI) [Ratio] 35.3 kg/m2 Dr. Mandeep Houser DO Work Phone: [facility] 11-13-2024 17:55-0400 Body weight 90.[address] Mandeep Houser DO Work Phone: [facility] 11-03-2024 15:12-0400 Body height 162.6 cm Morenita Hill APRN.CNP Work Phone: [facility] 11-03-2024 15:12-0400 Body mass index (BMI) [Ratio] 32.62 kg/m2 Morenita Hill CONDUIT BENDER.MEDICAL DEVICE SALES Work Phone: [facility] 11-03-2024 15:12-0400 Body weight 86.2 kg Morenita Hill CONDUIT BENDER.MEDICAL DEVICE SALES Work Phone: [facility] 11-03-2024 15:12-0400 Diastolic blood pressure 71 mm[Hg] Morenita Hill CONDUIT BENDER.MEDICAL DEVICE SALES Work Phone: [facility] 11-03-2024 15:12-0400 Heart rate 70 /min Morenita Hill CONDUIT BENDER.MEDICAL DEVICE SALES Work Phone: [facility] 11-03-2024 15:12-0400 SaO2% (BldA) [Mass fraction] 93 % Morenita Hill CONDUIT BENDER.MEDICAL DEVICE SALES Work Phone: [facility] 11-03-2024 15:12-0400 Systolic blood pressure 119 mm[Hg] Morenita Hill CONDUIT BENDER.MEDICAL DEVICE SALES Work Phone: [facility] 11-03-2024 14:05-0400 Body height 162.6 cm Pili Wells MD Work Phone: [facility] 11-03-2024 14:05-0400 Body mass index (BMI) [Ratio] 33.34 kg/m2 Pili Wells MD Work Phone: [facility] 11-03-2024 14:05-0400 Body weight 88.1 kg Pili Wells MD Work Phone: [facility] 11-03-2024 14:05-0400 Diastolic blood pressure 85 mm[Hg] Pili Wells MD Work Phone: [facility] 11-03-2024 14:05-0400 Heart rate 67 /min Pili Wells MD Work Phone: [facility] 11-03-2024 14:05-0400 Systolic blood pressure 126 mm[Hg] Pili Wells MD Work Phone: [facility] 07-21-2024 15:55-0400 Body mass index (BMI) [Ratio] 34.19 kg/m2 Mandeep Houser DO Work Phone: [facility] 07-21-2024 15:55-0400 Body temperature 97 [degF] Mandeep Houser DO Work Phone: [facility] 07-21-2024 15:55-0400 Body weight 87.54 kg Mandeep Houser DO Work Phone: [facility] 07-21-2024 15:55-0400 Diastolic blood pressure 82 mm[Hg] Mandeep Houser DO Work Phone: [facility] 07-21-2024 15:55-0400 Heart rate 76 /min Mandeep Houser DO Work Phone: [facility] 07-21-2024 15:55-0400 Respiratory rate 20 /min Mandeep Houser DO Work Phone: [facility] 07-21-2024 15:55-0400 Systolic blood pressure 146 mm[Hg] Mandeep Houser DO Work Phone: [facility] 07-08-2024 14:47-0500 Body mass index (BMI) [Ratio] 32.59 kg/m2 Mandeep Houser DO Work Phone: [facility] 07-08-2024 14:47-0500 Body weight 83.46 kg Mandeep Houser DO Work Phone: [facility] 07-08-2024 14:47-0500 Diastolic blood pressure 70 mm[Hg] Mandeep Houser DO Work Phone: [facility] 07-08-2024 14:47-0500 Heart rate 66 /min Mandeep Houser DO Work Phone: [facility] 07-08-2024 14:47-0500 SaO2% (BldA) [Mass fraction] 96 % Mandeep Houser DO Work Phone: [facility] 07-08-2024 14:47-0500 Systolic blood pressure 110 mm[Hg] Mandeep Houser DO Work Phone: [facility] 02-07-2024 14:13-0400 Body mass index (BMI) [Ratio] 34.84 kg/m2 Angel Mendon DO Work Phone: [facility] 02-07-2024 14:13-0400 Body weight 89.2 kg Angel Mendon DO Work Phone: [facility] 02-07-2024 14:13-0400 Diastolic blood pressure 78 mm[Hg] Angel Mendon DO Work Phone: [facility] 02-07-2024 14:13-0400 Heart rate 83 /min Angel Mendon DO Work Phone: [facility] 02-07-2024 14:13-0400 SaO2% (BldA) [Mass fraction] 95 % Angel Mendon DO Work Phone: [facility] 02-07-2024 14:13-0400 Systolic blood pressure 132 mm[Hg] Angel Mendon DO Work Phone: [facility] 01-15-2024 12:54-0400 Diastolic blood pressure 67 mm[Hg] Pili Wells MD Work Phone: [facility] 01-15-2024 12:54-0400 Heart rate 65 /min Pili Wells MD Work Phone: [facility] 01-15-2024 12:54-0400 Systolic blood pressure 104 mm[Hg] Pili Wells MD Work Phone: [facility] 01-15-2024 12:48-0400 Body mass index (BMI) [Ratio] 34.44 kg/m2 Pili Wells MD Work Phone: [facility] 01-15-2024 12:48-0400 Body weight 88.2 kg Pili Wells MD Work Phone: [facility] 01-15-2024 12:48-0400 SaO2% (BldA) [Mass fraction] 96 % Pili Wells MD Work Phone: [facility] Comment on above: 11-01-2023 09:13-0400 Body height 160 cm Mercedes Vera CONDUIT BENDER.MEDICAL DEVICE SALES Work Phone: [facility] 11-01-2023 09:13-0400 Body mass index (BMI) [Ratio] 34.01 kg/m2 Mercedes Vera CONDUIT BENDER.MEDICAL DEVICE SALES Work Phone: [facility] 11-01-2023 09:13-0400 Body weight 87.09 kg Mercedes Vera CONDUIT BENDER.MEDICAL DEVICE SALES Work Phone: [facility] 11-01-2023 09:13-0400 Diastolic blood pressure 79 mm[Hg] Mercedes Vera CONDUIT BENDER.MEDICAL DEVICE SALES Work Phone: [facility] 11-01-2023 09:13-0400 Heart rate 68 /min Mercedes Vera CONDUIT BENDER.MEDICAL DEVICE SALES Work Phone: [facility] 11-01-2023 09:13-0400 Systolic blood pressure 125 mm[Hg] Mercedes Vera CONDUIT BENDER.MEDICAL DEVICE SALES Work Phone: [facility] 10-31-2023 15:08-0400 Body mass index (BMI) [Ratio] 34.37 kg/m2 Mandeep Houser DO Work Phone: [facility] 10-31-2023 15:08-0400 Body temperature 96.4 [degF] Mandeep Houser DO Work Phone: [facility] 10-31-2023 15:08-0400 Body weight 88 kg Mandeep Houser DO Work Phone: [facility] 10-31-2023 15:08-0400 Diastolic blood pressure 80 mm[Hg] Mandeep Houser DO Work Phone: [facility] 10-31-2023 15:08-0400 Heart rate 76 /min Mandeep Houser DO Work Phone: [facility] 10-31-2023 15:08-0400 Respiratory rate 20 /min Mandeep Houser DO Work Phone: [facility] 10-31-2023 15:08-0400 Systolic blood pressure 150 mm[Hg] Mandeep Houser DO Work Phone: [facility] 10-15-2023 11:41-0400 Body mass index (BMI) [Ratio] 34.4 kg/m2 Rupali Nascimento CONDUIT BENDER.MEDICAL DEVICE SALES Work Phone: [facility] 10-15-2023 11:41-0400 Body weight 88.09 kg Rupali Nascimento CONDUIT BENDER.MEDICAL DEVICE SALES Work Phone: [facility] 10-15-2023 11:41-0400 Diastolic blood pressure 68 mm[Hg] Rupali Nascimento CONDUIT BENDER.MEDICAL DEVICE SALES Work Phone: [facility] 10-15-2023 11:41-0400 Heart rate 68 /min Rupali Nascimento CONDUIT BENDER.MEDICAL DEVICE SALES Work Phone: [facility] 10-15-2023 11:41-0400 Respiratory rate 14 /min Rupali Nascimento CONDUIT BENDER.MEDICAL DEVICE SALES Work Phone: [facility] 10-15-2023 11:41-0400 SaO2% (BldA) [Mass fraction] 94 % Rupali Nascimento CONDUIT BENDER.MEDICAL DEVICE SALES Work Phone: [facility] 10-15-2023 11:41-0400 Systolic blood pressure 130 mm[Hg] Rupali Nascimento CONDUIT BENDER.MEDICAL DEVICE SALES Work Phone: [facility] 10-01-2023 12:22-0400 Body mass index (BMI) [Ratio] 34.15 kg/m2 Alejandrina Yasir CONDUIT BENDER.MEDICAL DEVICE SALES Work Phone: [facility] 10-01-2023 12:22-0400 Body temperature 97.11 [degF] Alejandrina Yasir CONDUIT BENDER.MEDICAL DEVICE SALES Work Phone: [facility] 10-01-2023 12:22-0400 Body weight 87.45 kg Alejandrina Ysair CONDUIT BENDER.MEDICAL DEVICE SALES Work Phone: [facility] 10-01-2023 12:22-0400 Diastolic blood pressure 84 mm[Hg] Alejandrina Yasir CONDUIT BENDER.MEDICAL DEVICE SALES Work Phone: [facility] 10-01-2023 12:22-0400 Heart rate 80 /min Alejandrina Yasir CONDUIT BENDER.MEDICAL DEVICE SALES Work Phone: [facility] 10-01-2023 12:22-0400 Respiratory rate 16 /min Alejandrina Yasir CONDUIT BENDER.MEDICAL DEVICE SALES Work Phone: [facility] 10-01-2023 12:22-0400 SaO2% (BldA) [Mass fraction] 95 % Alejandrina Yasir CONDUIT BENDER.MEDICAL DEVICE SALES Work Phone: [facility] 10-01-2023 12:22-0400 Systolic blood pressure 118 mm[Hg] Alejandrina Yasir CONDUIT BENDER.MEDICAL DEVICE SALES Work Phone: [facility] 09-13-2023 11:04-0400 Body mass index (BMI) [Ratio] 34.12 kg/m2 Alejandrina Yasir CONDUIT BENDER.MEDICAL DEVICE SALES Work Phone: [facility] 09-13-2023 11:04-0400 Body weight 87.36 kg Alejandrina Yasir CONDUIT BENDER.MEDICAL DEVICE SALES Work Phone: [facility] 09-13-2023 11:04-0400 Diastolic blood pressure 80 mm[Hg] Alejandrina Yasir CONDUIT BENDER.MEDICAL DEVICE SALES Work Phone: [facility] 09-13-2023 11:04-0400 Heart rate 73 /min Alejandrina Yasir CONDUIT BENDER.MEDICAL DEVICE SALES Work Phone: [facility] 09-13-2023 11:04-0400 Respiratory rate 16 /min Alejandrina Yasir CONDUIT BENDER.MEDICAL DEVICE SALES Work Phone: [facility] 09-13-2023 11:04-0400 SaO2% (BldA) [Mass fraction] 94 % Alejandrina Yasir CONDUIT BENDER.MEDICAL DEVICE SALES Work Phone: [facility] 09-13-2023 11:04-0400 Systolic blood pressure 122 mm[Hg] Alejandrina Yasir CONDUIT BENDER.MEDICAL DEVICE SALES Work Phone: [facility] 09-05-2023 10:51-0400 Body height 160 cm Thuy Aguirre APRN.MEDICAL DEVICE SALES Work Phone: [facility] 09-05-2023 10:51-0400 Body mass index (BMI) [Ratio] 34.05 kg/m2 Thuy Aguirre CONDUIT BENDER.MEDICAL DEVICE SALES Work Phone: [facility] 09-05-2023 10:51-0400 Body weight 87.2 kg Thuy Aguirre CONDUIT BENDER.MEDICAL DEVICE SALES Work Phone: [facility] 09-05-2023 10:51-0400 Diastolic blood pressure 84 mm[Hg] Thuy Aguirre CONDUIT BENDER.MEDICAL DEVICE SALES Work Phone: [facility] 09-05-2023 10:51-0400 Heart rate 84 /min Thuy Aguirre CONDUIT BENDER.MEDICAL DEVICE SALES Work Phone: [facility] 09-05-2023 10:51-0400 SaO2% (BldA) [Mass fraction] 97 % Thuy Aguirre CONDUIT BENDER.MEDICAL DEVICE SALES Work Phone: [facility] 09-05-2023 10:51-0400 Systolic blood pressure 128 mm[Hg] Thuy Aguirre CONDUIT BENDER.MEDICAL DEVICE SALES Work Phone: [facility] 08-29-2023 15:37-0400 Body mass index (BMI) [Ratio] 33.6 kg/m2 [facility] 08-29-2023 15:17-0400 Body height 160.02 cm [facility] 08-29-2023 15:17-0400 Body weight 86.18 kg [facility] 08-29-2023 14:28-0400 Diastolic blood pressure 82 mm[Hg] [facility] 08-29-2023 14:28-0400 Heart rate 91 /min [facility] 08-29-2023 14:28-0400 SaO2% (BldA) [Mass fraction] 95 % [facility] 08-29-2023 14:28-0400 Systolic blood pressure 125 mm[Hg] [facility] 08-22-2023 10:27-0400 Body temperature 96.91 [degF] Alejandrina Harvey CONDUIT BENDER.MEDICAL DEVICE SALES Work Phone: [facility] 08-22-2023 10:27-0400 Body weight 87 kg Alejandrina Waldenman CONDUIT BENDER.MEDICAL DEVICE SALES Work Phone: [facility] 08-22-2023 10:27-0400 Diastolic blood pressure 84 mm[Hg] Alejandrina Waldenman CONDUIT BENDER.MEDICAL DEVICE SALES Work Phone: [facility] 08-22-2023 10:27-0400 Heart rate 76 /min Alejandrina Waldenman CONDUIT BENDER.MEDICAL DEVICE SALES Work Phone: [facility] 08-22-2023 10:27-0400 SaO2% (BldA) [Mass fraction] 95 % Alejandrina Waldenman CONDUIT BENDER.MEDICAL DEVICE SALES Work Phone: [facility] 08-22-2023 10:27-0400 Systolic blood pressure 122 mm[Hg] Alejandrina Waldenman CONDUIT BENDER.MEDICAL DEVICE SALES Work Phone: [facility] 08-07-2023 14:44-0400 Body height 160 cm Dilcia Bonilla MD Work Phone: [facility] 08-07-2023 14:44-0400 Body weight 86.59 kg Dilcia Bonilla MD Work Phone: [facility] 08-07-2023 14:44-0400 Diastolic blood pressure 82 mm[Hg] Dilcia Bonilla MD Work Phone: [facility] 08-07-2023 14:44-0400 Heart rate 91 /min Dilcia Bonilla MD Work Phone: [facility] 08-07-2023 14:44-0400 SaO2% (BldA) [Mass fraction] 95 % Dilcia Bonilla MD Work Phone: [facility] 08-07-2023 14:44-0400 Systolic blood pressure 125 mm[Hg] Dilcia Bonilla MD Work Phone: [facility] 07-24-2023 13:42-0400 Body temperature 97 [degF] Mandeep Houser DO Work Phone: [facility] 07-24-2023 13:42-0400 Body weight 87.54 kg Mandeep Houser DO Work Phone: [facility] 07-24-2023 13:42-0400 Diastolic blood pressure 80 mm[Hg] Mandeep Houser DO Work Phone: [facility] 07-24-2023 13:42-0400 Heart rate 80 /min Mandeep Houser DO Work Phone: [facility] 07-24-2023 13:42-0400 Respiratory rate 20 /min Mandeep Houser DO Work Phone: [facility] 07-24-2023 13:42-0400 Systolic blood pressure 120 mm[Hg] Mandeep Houser DO Work Phone: [facility] 10-14-2022 14:12-0400 Body temperature 99.81 [degF] Shanell Older CONDUIT BENDER.MEDICAL DEVICE SALES Work Phone: [facility] 10-14-2022 14:12-0400 Body weight 88.91 kg Shanell Older CONDUIT BENDER.MEDICAL DEVICE SALES Work Phone: [facility] 10-14-2022 14:12-0400 Diastolic blood pressure 78 mm[Hg] Shanell Older CONDUIT BENDER.MEDICAL DEVICE SALES Work Phone: [facility] 10-14-2022 14:12-0400 Heart rate 87 /min Shanell Older CONDUIT BENDER.MEDICAL DEVICE SALES Work Phone: [facility] 10-14-2022 14:12-0400 Respiratory rate 22 /min Shanell Older CONDUIT BENDER.MEDICAL DEVICE SALES Work Phone: [facility] 10-14-2022 14:12-0400 SaO2% (BldA) [Mass fraction] 94 % Shanell Older CONDUIT BENDER.MEDICAL DEVICE SALES Work Phone: [facility] 10-14-2022 14:12-0400 Systolic blood pressure 104 mm[Hg] Shanell Older CONDUIT BENDER.MEDICAL DEVICE SALES Work Phone: [facility] 08-14-2022 11:20-0400 Body weight 87.09 kg Santo Oneill MD Work Phone: [facility] 08-14-2022 11:20-0400 Diastolic blood pressure 70 mm[Hg] Santo Oneill MD Work Phone: [facility] 08-14-2022 11:20-0400 Heart rate 87 /min Santo Oneill MD Work Phone: [facility] 08-14-2022 11:20-0400 SaO2% (BldA) [Mass fraction] 94 % Santo Oneill MD Work Phone: [facility] 08-14-2022 11:20-0400 Systolic blood pressure 110 mm[Hg] Santo Oneill MD Work Phone: [facility] 07-21-2022 10:44-0500 Body weight 89.54 kg Alejandrina Yasir CONDUIT BENDER.MEDICAL DEVICE SALES Work Phone: [facility] 07-21-2022 10:44-0500 Diastolic blood pressure 78 mm[Hg] Alejandrina Yasir CONDUIT BENDER.MEDICAL DEVICE SALES Work Phone: [facility] 07-21-2022 10:44-0500 Heart rate 64 /min Alejandrina Yasir CONDUIT BENDER.MEDICAL DEVICE SALES Work Phone: [facility] 07-21-2022 10:44-0500 SaO2% (BldA) [Mass fraction] 93 % Alejandrina Yasir CONDUIT BENDER.MEDICAL DEVICE SALES Work Phone: [facility] 07-21-2022 10:44-0500 Systolic blood pressure 130 mm[Hg] Alejandrina Yasir CONDUIT BENDER.MEDICAL DEVICE SALES Work Phone: [facility] 02-13-2022 11:07-0400 Body height 162.6 cm Santo Oneill MD Work Phone: [facility] 02-13-2022 11:07-0400 Body weight 89.09 kg Santo Oneill MD Work Phone: [facility] 02-13-2022 11:07-0400 Diastolic blood pressure 84 mm[Hg] Santo Oneill MD Work Phone: [facility] 02-13-2022 11:07-0400 Heart rate 80 /min Santo Oneill MD Work Phone: [facility] 02-13-2022 11:07-0400 Systolic blood pressure 136 mm[Hg] Santo Oneill MD Work Phone: [facility] 01-20-2022 10:46-0400 Body weight 87.91 kg Alejandrina Yasir CONDUIT BENDER.MEDICAL DEVICE SALES Work Phone: [facility] 01-20-2022 10:46-0400 Diastolic blood pressure 78 mm[Hg] Alejandrina Yasir CONDUIT BENDER.MEDICAL DEVICE SALES Work Phone: [facility] 01-20-2022 10:46-0400 Heart rate 79 /min Alejandrina Yasir CONDUIT BENDER.MEDICAL DEVICE SALES Work Phone: [facility] 01-20-2022 10:46-0400 SaO2% (BldA) [Mass fraction] 95 % Alejandrina Yasir CONDUIT BENDER.MEDICAL DEVICE SALES Work Phone: [facility] 01-20-2022 10:46-0400 Systolic blood pressure 124 mm[Hg] Alejandrina Yasir CONDUIT BENDER.MEDICAL DEVICE SALES Work Phone: [facility] 12-19-2021 09:10-0400 Body temperature 97.2 [degF] Sincere Clatskanie PA-C Work Phone: [facility] 12-19-2021 09:10-0400 Diastolic blood pressure 70 mm[Hg] Sincere Maddie PA-C Work Phone: [facility] 12-19-2021 09:10-0400 Heart rate 76 /min Sincere Maddie PA-C Work Phone: [facility] 12-19-2021 09:10-0400 SaO2% (BldA) [Mass fraction] 92 % Sincere Maddie PA-C Work Phone: [facility] 12-19-2021 09:10-0400 Systolic blood pressure 128 mm[Hg] Sincere Clats[place]ie PA-C Work Phone: [facility] 12-05-2021 10:53-0400 Body temperature 98.2 [degF] Wes Marshall MD Work Phone: [facility] 12-05-2021 10:53-0400 Heart rate 60 /min Wes Marshall MD Work Phone: [facility] 12-05-2021 10:53-0400 Respiratory rate 8 /min Wes Marshall MD Work Phone: [facility] 12-05-2021 10:53-0400 SaO2% (BldA) [Mass fraction] 98 % Wes Marshall MD Work Phone: [facility] 12-05-2021 10:45-0400 Diastolic blood pressure 70 mm[Hg] Wes Marshall MD Work Phone: [facility] 12-05-2021 10:45-0400 Systolic blood pressure 135 mm[Hg] Wes Marshall MD Work Phone: [facility] 11-02-2021 13:29-0400 Body height 162.6 cm Sincere Maddie PA-C Work Phone: [facility] 11-02-2021 13:29-0400 Body temperature 97.3 [degF] Sincere Maddie PA-C Work Phone: [facility] 11-02-2021 13:29-0400 Body weight 86.64 kg Sincere Clats[place]ie PA-C Work Phone: [facility] 11-02-2021 13:29-0400 Diastolic blood pressure 62 mm[Hg] Sincere Maddie PA-C Work Phone: [facility] 11-02-2021 13:29-0400 Heart rate 80 /min Sincere Clats[place]ie PA-C Work Phone: [facility] 11-02-2021 13:29-0400 SaO2% (BldA) [Mass fraction] 94 % Sincere Clats[place]ie PA-C Work Phone: [facility] 11-02-2021 13:29-0400 Systolic blood pressure 118 mm[Hg] Sincere Perkins PA-C Work Phone: [facility] 10-19-2021 11:38-0400 Body weight 86.73 kg Alejandrina Yasir CONDUIT BENDER.MEDICAL DEVICE SALES Work Phone: [facility] 10-19-2021 11:38-0400 Diastolic blood pressure 92 mm[Hg] Alejandrina Yasir CONDUIT BENDER.MEDICAL DEVICE SALES Work Phone: [facility] 10-19-2021 11:38-0400 Heart rate 79 /min Alejandrina Yasir CONDUIT BENDER.MEDICAL DEVICE SALES Work Phone: [facility] 10-19-2021 11:38-0400 Respiratory rate 16 /min Alejandrina Yasir CONDUIT BENDER.MEDICAL DEVICE SALES Work Phone: [facility] 10-19-2021 11:38-0400 SaO2% (BldA) [Mass fraction] 96 % Alejandrina Yasir CONDUIT BENDER.MEDICAL DEVICE SALES Work Phone: [facility] 10-19-2021 11:38-0400 Systolic blood pressure 132 mm[Hg] Alejandrina Yasir CONDUIT BENDER.MEDICAL DEVICE SALES Work Phone: [facility] 09-01-2021 15:38-0400 Body height 160 cm Alejandrina Yasir CONDUIT BENDER.MEDICAL DEVICE SALES Work Phone: [facility] 09-01-2021 15:38-0400 Body weight 88.45 kg Alejandrina Yasir CONDUIT BENDER.MEDICAL DEVICE SALES Work Phone: [facility] 09-01-2021 15:38-0400 Diastolic blood pressure 90 mm[Hg] Alejandrina Yasir CONDUIT BENDER.MEDICAL DEVICE SALES Work Phone: [facility] 09-01-2021 15:38-0400 Heart rate 69 /min Alejandrina Yasir CONDUIT BENDER.MEDICAL DEVICE SALES Work Phone: [facility] 09-01-2021 15:38-0400 SaO2% (BldA) [Mass fraction] 96 % Alejandrina Yasir CONDUIT BENDER.MEDICAL DEVICE SALES Work Phone: [facility] 09-01-2021 15:38-0400 Systolic blood pressure 146 mm[Hg] Alejandrina Harvey APRN.MEDICAL DEVICE SALES Work Phone: [facility] 02-24-2020 12:13-0400 BMI (Body Mass Index) 34.9 kg/m2 [facility] Work Phone: 02-24-2020 12:13-0400 Body weight 89.36 kg Mane Solis [facility] [place] Work Phone: 02-24-2020 12:13-0400 BP Diastolic 80 mm[Hg] Mane Solis [facility] Elvie Work Phone: 02-24-2020 12:13-0400 BP Systolic 160 mm[Hg] [facility] El[facility] Work Phone: 02-24-2020 12:13-0400 BSA (Body Surface Area) 1.92 m2 [facility] Work Phone: 02-04-2020 16:16-0400 BMI (Body Mass Index) 35.43 kg/m2 Rafael Frank III [facility] Work Phone: 02-04-2020 16:16-0400 Body weight 90.72 kg Rafael Frank III [facility] Work Phone: 02-04-2020 16:16-0400 BP Diastolic 78 mm[Hg] Rafael Frank III [facility] Jareth Work Phone: 02-04-2020 16:16-0400 BP Systolic 154 mm[Hg] [facility] Work Phone: 02-04-2020 16:16-0400 BSA (Body Surface Area) 1.93 m2 Rafael Frank III [facility] Work Phone: 02-04-2020 16:16-0400 Height 160.02 cm Rafael Templeton Work Phone: 02-04-2020 16:16-0400 1 1 Rafael Tepmleton Work Phone: Comment on above: Para 02-04-2020 16:16-0400 2 1 Rafael Templeton Work Phone: Comment on above: 01-28-2020 15:21-0400 BMI (Body Mass Index) 35.07 kg/m2 Rafael Templeton Work Phone: 01-28-2020 15:21-0400 Body weight 89.81 kg Rafael Templeton Work Phone: 01-28-2020 15:21-0400 BP Diastolic 92 mm[Hg] Rafael Frank III [facility] Work Phone: 01-28-2020 15:21-0400 BP Systolic 132 mm[Hg] Rafael Frank III [facility] Work Phone: 01-28-2020 15:21-0400 BSA (Body Surface Area) 1.93 m2 Rafael Templeton Work Phone: 01-28-2020 15:21-0400 Height 160.02 cm Rafael Frank III [facility] Work Phone: 01-22-2020 12:56-0400 BMI (Body Mass Index) 35.04 kg/m2 Rafael Templeton Work Phone: 01-22-2020 12:56-0400 Body weight 89.72 kg Rafael Frank III [facility] Work Phone: 01-22-2020 12:56-0400 BP Diastolic 84 mm[Hg] Rafael Frank III [facility] Work Phone: 01-22-2020 12:56-0400 BP Systolic 118 mm[Hg] Rafael Frank III [facility] Work Phone: 01-22-2020 12:56-0400 BSA (Body Surface Area) 1.92 m2 Rafael Templeton Work Phone: 01-22-2020 12:56-0400 Height 160.02 cm Rafael Templeton Work Phone: 01-22-2020 12:56-0400 Pulse (Heart Rate) 75 /min Rafael MendenhallWV TISHA Temple[place] Work Phone: 01-22-2020 12:56-0400 Respiratory Rate 16 /min Rafael Templeton Work Phone: Encounters Encounter Date Encounter Type Care Provider Facility Start: 11-13-2024 End: 11-13-2024 Emergency department patient visit Dr. Mandeep Houser DO Work Phone: -Emergency Department Work Phone: Start: 11-05-2024 End: 11-05-2024 ambulatory Chasidy Lyn MA [employer] Start: 11-05-2024 End: 11-05-2024 Patient encounter procedure Chasidy Lyn MA [employer] Comment on above: [facility] Start: 11-03-2024 End: 11-03-2024 Office outpatient visit 25 minutes Pili Wells MD Work Phone: Cardiology Comment on above: Chronic systolic con gestive heart failure (HCC) (Primary Dx); Nonischemic cardiomyopathy (HCC); 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; Left bundle branch block; Cardiac resynchronization therapy defibrillator (ENERGY AUDITOR-D) in place Start: 11-03-2024 End: 11-03-2024 Patient encounter procedure Holter/Event Monitor Edenilson Work Phone: Cardiology Comment on above: Cardiac resynchroniz ation therapy defibrillator (ENERGY AUDITOR-D) in place (Primary Dx) Cardiac resynchroniz ation therapy defibrillator (ENERGY AUDITOR-D) in place (Primary Dx); Chronic HFrEF (heart failure with reduced ejection fraction) ([facility]); Medication management Start: 11-03-2024 End: 11-03-2024 ambulatory MANDEEP ALFARORISON Facility:[facility] Start: 11-03-2024 End: 11-03-2024 ambulatory MANDEEP HOUSER Facility:[facility] Start: 10-21-2024 End: 10-21-2024 Patient encounter procedure Mandeep Houser DO Work Phone: [facility] Comment on above: Chronic bilateral th oracic back pain (Primary Dx); Somatic dysfunction of spine, lumbar; Somatic dysfunction of rib; Somatic dysfunction of head region; Somatic dysfunction of spine, cervical; Somatic dysfunction of spine, thoracic Start: 10-21-2024 End: 10-21-2024 ambulatory MANDEEP ALFARORISON Facility:[facility] Start: 09-30-2024 End: 09-30-2024 ambulatory MANDEEP ALFARORISON Facility:[facility] Start: 09-23-2024 End: 09-23-2024 ambulatory MANDEEP ALFARORISON Facility:[facility] Start: 09-15-2024 End: 09-15-[facility] [place] Start: 09-15-2024 End: 09-15-2024 Patient encounter procedure Dorinda Young MA [facility] Comment on above: Population Health Na vigation Outreach ([facility], High Risk /) Start: 08-27-2024 End: 08-27-2024 Telephone encounter Dilcia Bonilla MD Work Phone: Cardiology Start: 08-25-2024 End: 08-25-2024 ambulatory MANDEEP HOUSER Facility:[facility] Start: 08-25-2024 End: 08-25-2024 Patient encounter [...] Start: 08-15-2024 End: 08-15-2024 ambulatory MANDEEP ALFARORISON Facility:[facility] Start: 08-04-2024 End: 08-04-2024 ambulatory MADNEEP HOUSER Facility:[facility] Start: 08-04-2024 End: 08-04-2024 Patient encounter procedure Mandeep Houser DO Work Phone: [facility] Comment on above: Chronic bilateral th oracic back pain (Primary Dx); Somatic dysfunction of rib; Somatic dysfunction of spine, thoracic; Somatic dysfunction of spine, cervical; Somatic dysfunction of head region; Somatic dysfunction of pelvic region Start: 07-21-2024 End: 07-21-2024 ambulatory MANDEEP ALFARORISON Facility:[facility] Start: 07-21-2024 End: 07-21-2024 Patient encounter procedure Mandeep Houser DO Work Phone: [facility] Comment on above: Acute cough (Primary Dx); Vitamin B12 deficiency; Fatigue, unspecified type; Nausea; Hypothyroidism, acquired; Chronic 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); Vitamin D deficiency Start: 07-08-2024 End: 07-08-2024 Subsequent hospital visit by physician Joe [facility] Work Phone: Radiology Comment on above: Acute cough [R05.1] Start: 07-08-2024 End: 07-08-2024 ambulatory MANDEEP HOUSER Facility:[facility] Start: 07-08-2024 End: 07-08-2024 Patient encounter procedure Mandeep Houser DO Work Phone: [facility] Comment on above: Vitamin B12 deficien cy (Primary Dx); Fatigue, unspecified type; Lightheadedness; Acute cough; Chronic 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); Nausea; Hypothyroidism, acquired; Anemia, unspecified type; Vitamin D deficiency; Nonischemic cardiomyopathy (HCC) Start: 07-01-2024 End: 08-01-2024 Telephone encounter Mandeep Elsi Houser DO Work Phone: [facility] Start: 06-20-2024 End: 06-20-2024 ambulatory MANDEEP ALFARORISON Facility:[facility] Start: 06-20-2024 End: 06-20-2024 Patient encounter procedure Mandeep Alfarorison DO Work Phone: [facility] Comment on above: Chronic bilateral th oracic back pain (Primary Dx); Somatic dysfunction of rib; Somatic dysfunction of head region; Somatic dysfunction of spine, thoracic; Somatic dysfunction of spine, lumbar; Somatic dysfunction of spine, cervical; Somatic dysfunction of pelvic region Start: 05-30-2024 End: 05-30-2024 Patient encounter procedure Mandeep Alfarorison DO Work Phone: [facility] Comment on above: Chronic bilateral th oracic back pain (Primary Dx); Somatic dysfunction of rib; Somatic dysfunction of spine, lumbar; Somatic dysfunction of spine, thoracic; Somatic dysfunction of spine, cervical; Somatic dysfunction of pelvic region; Somatic dysfunction of head region Start: 05-30-2024 End: 05-30-2024 ambulatory MANDEEP HOUSER Facility:[facility] Start: 05-12-2024 End: 05-12-2024 Patient encounter procedure Mandeep Elsi AlfaroHouser DO Work Phone: [facility] Comment on above: Chronic bilateral th oracic back pain (Primary Dx); Somatic dysfunction of rib; Somatic dysfunction of spine, thoracic; Somatic dysfunction of spine, cervical; Somatic dysfunction of head region; Somatic dysfunction of spine, lumbar Start: 05-12-2024 End: 05-12-2024 ambulatory MANDEEP HOUSER Facility:[facility] Start: 04-22-2024 End: 04-22-2024 ambulatory MANDEEP HOUSER Facility:[facility] Start: 04-22-2024 End: 04-22-2024 Patient encounter procedure Mandeep Elsi AlfaroHouser DO Work Phone: [facility] Comment on above: Suprapubic pain (Richi maritza Dx); Somatic dysfunction of head region; Chronic bilateral thoracic back pain; Somatic dysfunction of rib; Somatic dysfunction of spine, cervical; Somatic dysfunction of spine, thoracic; Somatic dysfunction of pelvic region; Somatic dysfunction of spine, lumbar Start: 04-22-2024 End: 04-22-2024 ambulatory MANDEEP HOUSER Facility:[facility] Start: 04-08-2024 End: 04-08-2024 Refill Mandeep L Houser DO Work Phone: [facility] Comment on above: Refill Request Start: 03-27-2024 End: 03-27-2024 Emergency department patient visit Mandeep Houser Facility:[facility] Start: 03-21-2024 End: 03-24-2024 Telephone encounter Mandeep Houser DO Work Phone: [facility] Comment on above: Medication Problem Start: 03-18-2024 End: 03-18-2024 ambulatory MANDEEP HOUSER Facility:[facility] Start: 03-05-2024 End: 03-06-2024 Telephone encounter Mandeep Houser DO Work Phone: [facility] Start: 02-12-2024 End: 02-12-2024 Patient encounter procedure Mandeep Houser DO Work Phone: [facility] Comment on above: Hypothyroidism, acqu ired (Primary Dx); Chronic bilateral thoracic back pain; Somatic dysfunction of rib; Somatic dysfunction of spine, cervical; Somatic dysfunction of spine, thoracic; Somatic dysfunction of spine, lumbar; Somatic dysfunction of head region Start: 02-12-2024 End: 02-12-2024 ambulatory MANDEEP HOUSER Facility:[facility] Start: 02-07-2024 End: 02-07-2024 ambulatory [facility] Start: 02-07-2024 End: 02-07-2024 Patient encounter procedure Angel Castro DO Work Phone: Cardiology Comment on above: Nonischemic cardiomy opathy (HCC) (Primary Dx) Start: 01-29-2024 End: 01-29-2024 ambulatory MANDEEP HOUSER Facility:[facility] Start: 01-29-2024 End: 01-29-2024 Patient encounter procedure Mandeep Houser DO Work Phone: [facility] Comment on above: Hypothyroidism, acqu ired (Primary Dx); Chronic bilateral thoracic back pain; Somatic dysfunction of spine, thoracic; Somatic dysfunction of spine, cervical; Somatic dysfunction of rib; Somatic dysfunction of spine, lumbar; Somatic dysfunction of head region Start: 01-15-2024 End: 01-15-2024 ambulatory MANDEEP HOUSER Facility:[facility] Start: 01-15-2024 End: 01-15-2024 Office outpatient visit 40 minutes Pili Wells MD Work Phone: Cardiology Comment on above: Chronic systolic con gestive heart failure (HCC) (Primary Dx); Nonischemic cardiomyopathy (HCC); Left bundle branch block; 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 Start: 01-04-2024 End: 01-04-2024 Patient encounter procedure Mandeep Houser DO Work Phone: [facility] Comment on above: Chronic neck pain (P rimary Dx); Chronic bilateral thoracic back pain; Somatic dysfunction of spine, thoracic; Somatic dysfunction of rib; Somatic dysfunction of spine, cervical; Somatic dysfunction of pelvic region; Somatic dysfunction of head region; Somatic dysfunction of spine, lumbar Start: 01-04-2024 End: 01-04-2024 ambulatory [facility] Facility:[facility] Start: 12-23-2023 ambulatory [facility] Facility:[facility] Start: 12-12-2023 End: 12-12-2023 ambulatory [facility] Start: 12-12-2023 End: 12-12-2023 Patient encounter procedure Mandeep Houser DO Work Phone: [facility] Comment on above: Chronic bilateral th oracic back pain (Primary Dx); Somatic dysfunction of head region; Somatic dysfunction of spine, cervical; Somatic dysfunction of rib; Somatic dysfunction of spine, thoracic; Somatic dysfunction of pelvic region Start: 12-12-2023 End: 12-12-2023 ambulatory MANDEEP HOUSER Facility:[facility] Start: 12-06-2023 Telephone encounter Pili ricardo MD Work Phone: Cardiology Start: 12-05-2023 End: 12-05-2023 Subsequent hospital visit by physician [facility] Work Phone: Cardiology Lab Comment on above: Chronic systolic con gestive heart failure (HCC) [I50.22] Start: 11-28-2023 Telephone encounter Mandeep ochoa DO Work Phone: NOC Comment on above: Transition Of Care Start: 11-27-2023 End: 11-27-2023 ambulatory MANDEEP ELDERON Facility:[facility] Start: 11-23-2023 Telephone encounter Rojas Prakash RN NOC Comment on above: Transition Of Care Start: 11-20-2023 Telephone encounter Misty Ascencio RN Cardiology Comment on above: Help Desk Manager - O ther (CHF) Start: 11-15-2023 End: 11-18-2023 ambulatory [facility] Facility:[facility] Start: 11-12-2023 End: 12-12-2023 ambulatory [facility] Facility:[facility] Start: 11-07-2023 End: 11-07-2023 Patient encounter procedure Mandeep Houser DO Work Phone: [facility] Comment on above: Acute midline low ba ck pain without sciatica (Primary Dx) Start: 11-07-2023 Telephone encounter Mandeep ochoa DO Work Phone: [facility] Comment on above: Appointment; OMT Start: 11-06-2023 Telephone encounter Mandeep ochoa DO Work Phone: [facility] Comment on above: Results (CT Brain) Start: 11-05-2023 End: 11-11-2023 ambulatory [facility] Facility:[facility] Start: 11-01-2023 ambulatory MANDEEP Calzada HOUSER Facil ity:[facility] Start: 11-01-2023 End: 11-01-2023 Subsequent hospital visit by physician [facility] Work Phone: [facility] Comment on above: Word finding difficu lty [R47.89] Start: 11-01-2023 End: 11-01-2023 Patient encounter procedure Mercedes Vera APRN.MEDICAL DEVICE SALES Work Phone: Cardiology Comment on above: Presence of cardiac resynchronization therapy defibrillator (ENERGY AUDITOR-D) (Primary Dx); Non-ischemic cardiomyopathy (HCC); LBBB (left bundle branch block) Start: 10-31-2023 End: 10-31-2023 Patient encounter procedure Mandeep Houser DO Work Phone: [facility] Comment on above: Hypothyroidism, acqu ired (Primary [...] Start: 10-17-2023 Telephone encounter Rupali Zak chandra CONDUIT BENDER.MEDICAL DEVICE SALES Work Phone: [facility] Comment on above: Results Start: 10-15-2023 End: 10-15-2023 Patient encounter procedure Rupali Nascimento MELI.MEDICAL DEVICE SALES Work Phone: [facility] Comment on above: Localized swelling o f left foot (Primary Dx); Foot pain, left; 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 Start: 10-11-2023 End: 10-11-2023 Refill Mandeep Houser DO Work Phone: [facility] Comment on above: Refill Request Left Great Toe Pain Start: 10-10-2023 End: 10-12-2023 ambulatory [facility] Facility:[facility] Start: 10-02-2023 End: 10-02-2023 Office outpatient visit 15 minutes Pili Wells MD Work Phone: Cardiology Comment on above: Chronic systolic con gestive heart failure (HCC) (Primary Dx); Left bundle branch block; Nonischemic cardiomyopathy (HCC); Hypertension with heart disease Start: 10-01-2023 End: 10-01-2023 Patient encounter procedure Alejandrina Harvey APRN.MEDICAL DEVICE SALES Work Phone: [facility] Comment on above: Acute non-recurrent pansinusitis (Primary Dx) Start: 09-30-2023 Telephone encounter Oliverio Del Cid Work Phone: Podiatry Comment on above: Results Start: 09-25-2023 Telephone encounter Thuy Aguirre APRN.MEDICAL DEVICE SALES Work Phone: [place] Provider Adult Comment on above: Results (FLP) Start: 09-24-2023 End: 09-24-2023 Subsequent hospital visit by physician Xr [facility] Work Phone: Radiology Comment on above: Repetitive stress in jury [X50.3XXA] Start: 09-24-2023 End: 09-24-2023 Patient encounter procedure Oliverio Mata Work Phone: Podiatry Comment on above: Repetitive stress in jury (Primary Dx); Venous insufficiency Start: 09-19-2023 Follow-up encounter Dilcia Bonilla MD Work Phone: [facility] Start: 09-19-2023 Patient encounter procedure Dilcia Bonilla MD Work Phone: [facility] Start: 09-17-2023 Telephone encounter Angel Castro DO Work Phone: Cardiology Comment on above: Patient Question (inga dennison) Results Patient Update Start: 09-13-2023 End: 09-13-2023 Subsequent hospital visit by physician Xr [facility] Work Phone: Radiology Comment on above: Foot pain, left [M79 .672] Start: 09-13-2023 End: 09-13-2023 Patient encounter procedure Alejandrina Harvey APRN.MEDICAL DEVICE SALES Work Phone: [facility] Comment on above: Foot pain, left (Richi maritza Dx); Localized swelling of left foot Start: 09-10-2023 End: 09-11-2023 ambulatory [facility] Work Phone: Start: 09-10-2023 End: 09-11-2023 Discharged [facility] Work Phone: Start: 09-06-2023 Encounter for meera l adult medical examination without abnormal findings [facility] Start: 09-05-2023 End: 09-05-2023 Patient encounter procedure Thuy Aguirre APRN.MEDICAL DEVICE SALES Work Phone: Cardiology Comment on above: Chronic systolic con gestive heart failure (HCC) (Primary Dx); Nonischemic cardiomyopathy (HCC); Mixed hyperlipidemia; LBBB (left bundle branch block); Presence of cardiac resynchronization therapy defibrillator (ENERGY AUDITOR-D); Primary hypertension; 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; Valvular heart disease Start: 09-03-2023 Registered [facility] Work Phone: Start: 08-29-2023 End: 08-29-2023 ambulatory [facility] Work Phone: Start: 08-29-2023 End: 08-29-2023 Patient encounter procedure [facility] Work Phone: Start: 08-29-2023 End: 08-29-2023 ambulatory [facility] Facility:[facility] Start: 08-27-2023 Telephone encounter Alejandrina Johnson APRN.MEDICAL DEVICE SALES Work Phone: [facility] Comment on above: Patient Question; Inga moralesnt Update Start: 08-23-2023 Telephone encounter Pili ricardo MD Work Phone: Cardiology Start: 08-22-2023 End: 08-22-2023 Patient encounter procedure Alejandrina Harvey CONDUIT BENDER.MEDICAL DEVICE SALES Work Phone: [facility] Comment on above: Vagina, candidiasis (Primary Dx); Burning with urination; 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; Acute cough; Laryngopharyngeal reflux (LPR) Start: 08-07-2023 Follow-up encounter Dilcia Bonilla MD Work Phone: [facility] Start: 08-07-2023 End: 08-07-2023 Patient encounter procedure Dilcia Bonilla MD Work Phone: [facility] Comment on above: LBBB (left bundle br anch block) (Primary Dx); Presence of cardiac resynchronization therapy defibrillator (ENERGY AUDITOR-D); Acute on chronic systolic CHF (congestive heart failure) (HCC) Start: 08-06-2023 Telephone encounter Pili ricardo MD Work Phone: Cardiology Start: 07-26-2023 Telephone encounter Dilcia Bonilla MD Work Phone: Cardiology Comment on above: Patient Update Start: 07-25-2023 Telephone encounter Mandeep ochoa DO Work Phone: [facility] Comment on above: Results Refill Request Start: 07-24-2023 End: 07-24-2023 Patient encounter procedure Mandeep Houser DO Work Phone: [facility] Comment on above: Chronic diastolic co ngestive heart failure (HCC) (Primary Dx); Hypothyroidism, acquired; Vitamin D deficiency; Fatigue, unspecified type; Acute hypoxic respiratory failure (HCC); Chronic bronchitis, unspecified chronic bronchitis type (HCC); Atrial fibrillation, unspecified type (HCC); SVT (supraventricular tachycardia) (HCC); Homozygous Factor V Leiden mutation (HCC) Start: 07-20-2023 ambulatory Fitz ramirez RN Work Phone: [facility] Start: 07-20-2023 Telephone encounter Mandeep Millard birdieanh DO Work Phone: NOC Comment on above: Follow Up (All Clear ) Transition Of Care ( TCM Initial [facility] Discharge 07/18/23) Start: 07-17-2023 Telephone encounter Morenita Griffin res, APRN.CNP Work Phone: [facility] Adult Comment on above: Appointment Start: 07-13-2023 End: 07-18-2023 Evaluation and management of inpatient MANDEEP HOUSER Facility:[facility] Start: 07-13-2023 Telephone encounter Rahul messina MD Work Phone: [facility] Adult Comment on above: Hospital [facility] Hospital Start: 07-10-2023 End: 07-13-2023 Evaluation and management of inpatient REMINGTON CAI Facility:[facility] Start: 06-12-2023 End: 06-12-2023 ambulatory [facility] Facility:[facility] Start: 05-17-2023 End: 05-17-2023 Subsequent hospital visit by physician Joe [facility] Work Phone: Radiology Comment on above: Chronic cough [R05.3 ] Start: 04-26-2023 Telephone encounter Mandeep ochoa DO Work Phone: [facility] Comment on above: Results Start: 04-17-2023 Telephone encounter Mandeep ochoa DO Work Phone: [facility] Start: 04-09-2023 End: 04-09-2023 Patient encounter procedure Santo Oneill MD Work Phone: Cardiology Comment on above: Primary hypertension ; Chronic diastolic congestive heart failure (HCC) Start: 03-01-2023 Telephone encounter Mandeep ochoa DO Work Phone: [facility] Comment on above: Results Start: 01-09-2023 End: 01-09-2023 Refill Santo Oneill MD Work Phone: Cardiology Comment on above: Refill Request Hypothyroidism, unsp ecified type (Primary Dx); Somatic dysfunction of spine, cervical; Somatic dysfunction of rib; Somatic dysfunction of head region; Chronic bilateral thoracic back pain; Chronic neck pain; Neck fullness Start: 12-22-2022 Telephone encounter Mandeep ochoa DO Work Phone: [facility] Comment on above: Results Start: 12-19-2022 Telephone encounter Mandeep ochoa DO Work Phone: [facility] Comment on above: Results Start: 12-14-2022 End: 12-14-2022 Subsequent hospital visit by physician Joe [facility] [place] Work Phone: Radiology Comment on above: SOB (shortness of br eath) [R06.02] Start: 10-24-2022 Telephone encounter Oliverio Cross gretadiane Work Phone: Podiatry Comment on above: Orders Start: 10-15-2022 Telephone encounter Estelita hess CONDUIT BENDER.MEDICAL DEVICE SALES Work Phone: [facility] Comment on above: Results Start: 10-14-2022 End: 10-14-2022 Patient encounter procedure Shanellraghav Cox CONDUIT BENDER.MEDICAL DEVICE SALES Work Phone: [facility] Comment on above: Acute cough (Primary Dx); Sore throat Start: 10-10-2022 End: 10-10-2022 Patient encounter procedure Mandeep Eldervalerie MENDOZA Work Phone: [facility] Comment on above: Chronic bilateral th oracic [...] 09-04-2022 Subsequent hospital visit by physician Ct [facility] (I-Stat) Work Phone: Cat Scan Comment [...] Mixed hyperlipidemia Start: 08-03-2022 [facility] Start: 07-26-2022 Telephone encounter Alejandrina Johnson APRN.MEDICAL DEVICE SALES Work Phone: [facility] Comment on above: Results Start: 07-25-2022 End: 07-25-2022 Subsequent hospital visit by physician Bone Density [facility] Work Phone: Radiology Comment on above: Screening for osteop orosis [Z13.820] Start: 07-21-2022 End: 07-21-2022 Patient encounter procedure Alejandrina Harvey APRN.MEDICAL DEVICE SALES Work Phone: [facility] Comment on above: Hypothyroidism, unsp ecified type (Primary Dx); Primary hypertension; Mixed hyperlipidemia; Vitamin D deficiency; Asymptomatic menopause; Encounter for vitamin deficiency screening; Screening for diabetes mellitus; Elevated glucose; Encounter for immunization; Screening for osteoporosis; Encounter for screening for osteoporosis Start: 07-18-2022 End: 07-18-2022 Patient encounter procedure Mandeep Houser DO Work Phone: [facility] Comment on above: Chronic right-sided thoracic back pain (Primary Dx); Somatic dysfunction of spine, cervical; Somatic dysfunction of spine, thoracic; Somatic dysfunction of rib; Rib pain on right side Start: 07-03-2022 End: 07-03-2022 Patient encounter procedure Mandeep Houser DO Work Phone: [facility] Comment on above: Chronic bilateral th oracic back pain (Primary Dx); Somatic dysfunction of rib; Somatic dysfunction of spine, thoracic; Somatic dysfunction of spine, cervical; Rib pain on right side; Somatic dysfunction of head region Start: 05-24-2022 Telephone encounter Mandeep ochoa DO Work Phone: [facility] Start: 05-22-2022 End: 05-22-2022 Patient encounter procedure Mandeep Houser DO Work Phone: [facility] Comment on above: Dysuria (Primary Dx) ; Urticaria; Food allergy; Allergic urticaria; Somatic dysfunction of spine, thoracic; Somatic dysfunction of rib; Somatic dysfunction of spine, cervical; Rib pain on right side; Somatic dysfunction of head region Start: 05-16-2022 Refill Santo Oneill MD Work Phone: Cardiology Comment on above: Refill Request Start: 05-03-2022 Telephone encounter Mandeep ochoa DO Work Phone: [address] [place] [address] Comment on above: Patient Question Start: 05-03-2022 End: 05-03-2022 Patient encounter procedure Mandeep Houser DO Work Phone: [facility] Comment on above: Rib pain on right si de (Primary Dx); Somatic dysfunction of spine, cervical; Somatic dysfunction of rib; Somatic dysfunction of spine, thoracic Start: 04-05-2022 ambulatory No Pcp (Historical) Ref erring Physician Start: 03-31-2022 ambulatory No Pcp (Historical) Ref erring Physician Start: 03-13-2022 Telephone encounter Alejandrina Johnson APRN.CNP Work Phone: [facility] Comment on above: Results Start: 03-10-2022 Telephone encounter Alejandrina Johnson APRN.CNP Work Phone: [facility] Comment on above: Consult Start: 02-13-2022 End: 02-13-2022 Patient encounter procedure Santo Oneill MD Work Phone: Cardiology Comment on above: Cardiomegaly (Primar y Dx); Primary hypertension; Chronic diastolic congestive heart failure (HCC); Palpitations; Acute on chronic systolic CHF (congestive heart failure) (HCC) Start: 01-20-2022 End: 01-20-2022 Patient encounter procedure Alejandrina Harvey APRN.CNP Work Phone: [facility] Comment on above: Routine physical exa mination (Primary Dx); Primary hypertension; Mixed hyperlipidemia; Coronary artery disease involving [place] coronary artery of [place] heart with other form of angina pectoris (HCC); Vitamin D deficiency; Hypothyroidism, unspecified type Start: 01-20-2022 End: 01-20-2022 Physical examination Alejandrina Harvey APRN.CNP Work Phone: [facility] Start: 01-13-2022 Telephone encounter Estelita Culp APRN.CNP Work Phone: Cardiology Comment on above: Results Start: 12-27-2021 Refill Mandeep Gamble son DO Work Phone: [facility] Comment on above: Refill Request Start: 12-19-2021 End: 12-19-2021 Patient encounter procedure Sincere Perkins PA-C Work Phone: General Surgery Comment on above: Diverticulosis (Prim moni Dx); History of Clostridium difficile colitis; Abdominal bloating Start: 12-08-2021 Telephone encounter Santo Oneill MD Work Phone: Cardiology Comment on above: Patient Question Start: 12-05-2021 End: 12-05-2021 Subsequent hospital visit by physician Wes Marshall MD Work Phone: [facility] Endoscopy Comment on above: Abdominal bloating [...] ambulatory Mandeep Gamble son DO Work Phone: [facility] Start: 11-01-2021 Patient encounter procedure Mandeep Houser DO Work Phone: General Surgery Comment on above: Outpatient [place] [facility] Start: 10-27-2021 Telephone encounter Estelita Culp APRN.CNP Work Phone: [facility] Card[facility] Comment on above: Results Start: 10-27-2021 End: 10-27-2021 Subsequent hospital visit by physician [facility] (I-Stat) Work Phone: Cat Scan Comment on above: Diverticulitis [K57. 92] Start: 10-24-2021 ambulatory Mandeep Gamble son DO Work Phone: [facility] Start: 10-24-2021 Patient encounter procedure Mandeep Houser DO Work Phone: [facility] Comment on above: Outpatient [place] [facility] Start: 10-24-2021 Telephone encounter Estelita Culp MELI.MEDICAL DEVICE SALES Work Phone: [place] [employer] Comment on above: [employer] Start: 10-19-2021 End: 10-19-2021 Patient encounter procedure Alejandrina Harvey MELI.MEDICAL DEVICE SALES Work Phone: [facility] Comment on above: Diverticulitis (Prim moni Dx); RLQ abdominal pain; Lower abdominal pain Start: 09-21-2021 End: 09-21-2021 Patient encounter procedure Mandeep Houser DO Work Phone: [facility] Comment on above: Rib pain (Primary Dx ); Somatic dysfunction of head region; Somatic dysfunction of spine, cervical; Somatic dysfunction of rib; Somatic dysfunction of spine, thoracic; Neck pain Start: 09-19-[address] moyatoby MELI.MEDICAL DEVICE SALES Work Phone: [facility] Comment on above: Results Start: 09-02-2021 Telephone encounter Alejandrina leslie MELI.MEDICAL DEVICE SALES Work Phone: [facility] Comment on above: Results Start: 09-01-2021 End: 09-01-2021 Subsequent hospital visit by physician Joe [facility] Work Phone: Radiology Comment on above: Chronic left shoulde r pain [M25.512, G89.29] Start: 09-01-2021 End: 09-01-2021 Patient encounter procedure Alejandrina Harvey MELI.MEDICAL DEVICE SALES Work Phone: [facility] Comment on above: Chronic left shoulde r pain (Primary Dx); Left elbow pain; Primary hypertension; Mixed hyperlipidemia; Hypokalemia; Screening for lipid disorders; Screening for diabetes mellitus; Screening for thyroid disorder; Encounter for vitamin deficiency screening; Body mass index (BMI) 34.0-34.9, adult ; Abnormal finding of blood chemistry, unspecified Start: 08-29-2021 Telephone encounter Mandeep ochoa DO Work Phone: [facility] Comment on above: Appointment Start: 08-23-2021 ambulatory Farzana Rodriguez LPN [facility] Start: 08-15-2021 Documentation procedure Mammog hermann Coordinator [facility] Start: 08-15-2021 Letter encounter Mammography Coordinator [facility] Start: 08-15-2021 End: 08-15-2021 Subsequent hospital visit by physician Screen Mammo [facility] Mammogram Comment on above: Encounter for screen ing mammogram for breast cancer [Z12.31] Start: 08-09-2021 End: 08-09-2021 ambulatory Estelita Maradiaga PT Work Phone: [facility] Comment on above: Left shoulder pain, unspecified chronicity; Lateral epicondylitis of left elbow Start: 01-05-2021 End: 01-05-2021 Subsequent hospital visit by physician Joe [facility] Work Phone: Radiology Comment on above: Chronic pain of righ t ankle [M25.571, G89.29] Start: 08-02-2020 End: 08-02-2020 Subsequent hospital visit by physician Joe [facility] Work Phone: Radiology Comment on above: Great toe pain, left [M79.675] Start: 04-27-2020 End: 04-27-2020 Subsequent hospital visit by physician Suis Cardenas Radiology Comment on above: Abnormal electrocard [...] foot complete minimum 3 views Kari Harvey CONDUIT BENDER.MEDICAL DEVICE SALES Work Phone: Start: 08-22-2023 Urnls dip stick/tablet rgnt auto w/o microscopy Alejandrina Harvey CONDUIT BENDER.MEDICAL DEVICE SALES Work Phone: Start: 08-07-2023 ICD CLINIC CHECK [...] study 1/> sites axial skel Alejandrina Harvey CONDUIT BENDER.MEDICAL DEVICE SALES Work Phone: Start: 12-05-2021 Colonoscopy flx dx w/collj spec when pfrmd Sincere Perkins PA-C Work Phone: Start: 12-05-2021 Esophagogastroduodenoscopy transoral diagnostic Sincere Perkins PA-C Work Phone: Start: 12-05-2021 Colonoscopy Wes Marshall MD Work Phone: Start: 10-27-2021 Ct abdomen & pelvis w/contrast material Alejandrina Harvey APRN.MEDICAL DEVICE SALES Work Phone: Start: 09-01-2021 Radex elbow 2 views Alejandrina Harvey APRN.MEDICAL DEVICE SALES Work Phone: Start: 08-15-2021 End: 08-15-2021 Screening [...] Author Start: 07-08-2027 Diabetes Screening Diabetes Screening [facility] Start: 04-22-2027 Diabetes Screening Diabetes Screening [facility] Start: 01-12-2027 LIPID SCREEN LIPID SCREEN [facility] Start: 12-11-2026 Diabetes Screening Diabetes Screening [facility] Start: 12-05-2026 Colonoscopy COLONOSCOPY [facility] Start: 12-05-2026 COLORECTAL CANCER SCREENING COLORECTAL CANCER SCREENING [facility] Start: 11-17-2026 Diabetes Screening Diabetes Screening [facility] Start: 10-14-2026 Diabetes Screening Diabetes Screening [facility] Start: 09-19-2026 Diabetes Screening Diabetes Screening [facility] Start: 09-14-2026 LIPID SCREEN LIPID SCREEN [facility] Start: 08-21-2026 Diabetes Screening Diabetes Screening [facility] Start: 07-23-2026 Diabetes Screening Diabetes Screening [facility] Start: 07-17-2026 Diabetes Screening Diabetes Screening [facility] Start: 07-10-2026 Diabetes Screening Diabetes Screening [facility] Start: 02-27-2026 Diabetes Screening Diabetes Screening [facility] Start: 12-22-2025 LIPID SCREEN LIPID SCREEN [facility] Start: 12-14-2025 DIABETES SCREEN DIABETES SCREEN [facility] Start: 12-14-2025 Diabetes Screening Diabetes Screening [facility] Start: 10-21-2025 Annual PCP Team Chronic Disease Visit Annual PCP Team Chronic Disease Visit [facility] Start: 09-30-2025 Annual PCP Team Chronic Disease Visit Annual PCP Team Chronic Disease Visit [facility] Start: 08-25-2025 Annual PCP Team Chronic Disease Visit Annual PCP Team Chronic Disease Visit [facility] Start: 08-04-2025 Annual PCP Team Chronic Disease Visit Annual PCP Team Chronic Disease Visit [facility] Start: 07-21-2025 Annual PCP Team Chronic Disease Visit Annual PCP Team Chronic Disease Visit [facility] Start: 07-21-2025 DIABETES SCREEN DIABETES SCREEN [facility] Start: 07-08-2025 Annual PCP Team Chronic Disease Visit Annual PCP Team Chronic Disease Visit [facility] Start: 07-08-2025 BP Controlled (<130/80) BP Controlled (<130/80) [facility] Start: 06-20-2025 Annual PCP Team Chronic Disease Visit Annual PCP Team Chronic Disease Visit [facility] Start: 05-30-2025 Annual PCP Team Chronic Disease Visit Annual PCP Team Chronic Disease Visit [facility] Start: 05-22-2025 DIABETES SCREEN DIABETES SCREEN [facility] Start: 05-20-2025 End: 05-20-2025 Patient encounter procedure 05/20/2025 2:00 PM EST Office Visit Cardiology [facility] [address] [place] [address] [place] [address] [place], [place] [id number] 6 months follow up Cardiology Comment on above: 6 months follow up Start: 05-12-2025 Annual PCP Team Chronic Disease Visit Annual PCP Team Chronic Disease Visit [facility] Start: 04-22-2025 Annual PCP Team Chronic Disease Visit Annual PCP Team Chronic Disease Visit [facility] Start: 03-09-2025 End: 03-09-2025 Patient encounter procedure 03/09/2025 2:00 PM EDT Office Visit Cardiology [address] [place] [address] Santo Oneill MD [address] [facility] [address] [place], [place] [id number] 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]; Nonischemic cardiomyopathy (HCC) [I42.8] Cardiology Comment on above: 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]; Nonischemic cardiomyopathy (HCC) [I42.8] Start: 02-11-2025 Annual PCP Team Chronic Disease Visit Annual PCP Team Chronic Disease Visit [facility] Start: 01-28-2025 Annual PCP Team Chronic Disease Visit Annual PCP Team Chronic Disease Visit [facility] Start: 01-14-2025 BP Controlled (<130/80) BP Controlled (<130/80) [facility] Start: 01-12-2025 DIABETES SCREEN DIABETES SCREEN [facility] Start: 01-03-2025 Annual PCP Team Chronic Disease Visit Annual PCP Team Chronic Disease Visit [facility] Start: 12-11-2024 Annual PCP Team Chronic Disease Visit Annual PCP Team Chronic Disease Visit [facility] Start: 11-24-2024 End: 11-24-2024 Patient encounter procedure 11/24/2024 2:00 PM EDT Office Visit [facility] [address] [place] [address] Mandeep Houser DO [address] [place] [address] OMT Family [facility] Comment on above: OMT Start: 11-21-2024 End: 11-21-2024 Patient encounter procedure 11/21/2024 11:20 AM EDT Office Visit Cardiology [address] [place] [id number] Álvaro Lobo MD [address] [place] [address] follow up Cardiology Comment on above: follow up Start: 11-13-2024 Incentive spirometry [facility] Start: 11-13-2024 End: 11-13-2024 [facility] Start: 11-06-2024 Annual PCP Team Chronic Disease Visit Annual PCP Team Chronic Disease Visit [facility] Start: 11-04-2024 End: 11-04-2024 Patient encounter procedure Cardiology Comment on above: medtronic annual annual medtronic ck medtronic annual ck 9 months follow up Start: 11-03-2024 End: 11-03-2024 Patient encounter procedure Cardiology Comment on above: annual device check+ 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 annual device check+ [facility] Start: 10-31-2024 BP Controlled (<130/80) BP Controlled (<130/80) [facility] Start: 10-30-2024 Annual PCP Team Chronic Disease Visit Annual PCP Team Chronic Disease Visit [facility] Start: 10-30-2024 Anxiety Screening Anxiety Screening [facility] Start: 10-30-2024 Depression Screening Depression Screening [facility] Start: 10-27-2024 DIABETES SCREEN DIABETES SCREEN [facility] Start: 10-21-2024 End: 10-21-2024 Patient encounter procedure 10/21/2024 3:20 PM EDT Office Visit [facility] [address] [place] [address] Mandeep Houser DO [address] [facility] [place] [id number] OMT [facility] Comment on above: OMT Start: 10-14-2024 Annual PCP Team Chronic Disease Visit Annual PCP Team Chronic Disease Visit [facility] Start: 10-14-2024 RSV Vaccine (1 - 1-dose 60+ series) RSV Vaccine (1 - 1-dose 60+ series) [facility] Comment on above: Postponed from 2006 (Declined at t his time) Start: 10-14-2024 RSV Vaccine (1 - 1-dose 75+ series) RSV Vaccine (1 - 1-dose 75+ series) [facility] Comment on above: Postponed from 2021 (Declined at t his time) Start: 10-14-2024 Shingrix Vaccine (1 of 2) Shingrix Vaccine (1 of 2) [facility] Comment on above: Postponed from 1996 (Declined at t his time) Start: 10-14-2024 Urine microalbumin profile DTaP,Tdap,Td Vaccine (1 - Tdap) [facility] Comment on above: Postponed from 1965 (Declined at t his time) Start: 10-14-2024 End: 10-14-2024 Patient encounter procedure Cardiology Comment on above: 9 months follow up Start: 09-30-2024 Annual PCP Team Chronic Disease Visit Annual PCP Team Chronic Disease Visit [facility] Start: 09-23-2024 End: 09-23-2024 Patient encounter procedure 09/23/2024 3:40 PM EDT Office Visit Family [facility] [address] [facility] [place] [address] Mandeep Houser, [address] [facility] [place] [address] OMT Family [facility] Comment on above: OMT Start: 09-19-2024 Hepatitis B surface antibody level LDL Cholesterol [facility] Start: 09-14-2024 DIABETES SCREEN DIABETES SCREEN [facility] Start: 09-12-2024 Annual PCP Team Chronic Disease Visit Annual PCP Team Chronic Disease Visit [facility] Start: 08-25-2024 End: 08-25-2024 Patient encounter procedure 08/25/2024 3:40 PM EDT Office Visit Family [facility] [address] [place] [address] Mandeep Houser DO [address] [facility] [place] [address] OMT [facility] Comment on above: OMT Start: 08-22-2024 End: 08-22-2024 Patient encounter procedure 08/22/2024 11:20 AM EDT Office Visit Cardiology [address] [address] Álvaro Lobo MD [address] [place] [address] follow up Cardiology Comment on above: follow up Start: 08-21-2024 Annual PCP Team Chronic Disease Visit Annual PCP Team Chronic Disease Visit [facility] Start: 08-20-2024 End: 08-20-2024 Patient encounter procedure 08/20/2024 1:00 PM EDT Office Visit Cardiology [address] [address] Angel Castro DO [address] [place] [address] 6 month follow up Cardiology Comment on above: 6 month follow up Start: 08-15-2024 End: 08-15-2024 Patient encounter procedure 08/15/2024 1:00 PM EDT Office Visit Cardiology [address] [place] [address] Nonischemic cardiomyopathy (HCC) [I42.8] Cardiology Comment on above: Nonischemic cardiomyopathy (HCC) [I42.8] Start: 08-06-2024 BP Controlled (<130/80) BP Controlled (<130/80) [facility] Start: 08-06-2024 End: 02-06-2025 Echocardiography ECHO Cardiology Routine Nonischemic cardiomyopathy (HCC) Expected: 08/06/2024, Expires: 02/06/2025 [facility] Work Phone: Comment on above: Expected: 08/06/2024, Expires: Start: 08-06-2024 End: 08-06-2024 Patient encounter procedure 08/06/2024 11:20 AM EDT Office Visit Cardiology [address] [address] Nonischemic cardiomyopathy (HCC) [I42.8] Cardiology Comment on above: Nonischemic cardiomyopathy (HCC) [I42.8] Start: 08-04-2024 End: 08-04-2024 Patient encounter procedure 08/04/2024 2:00 PM EDT Office Visit [facility] [address] [place] [address] Mandeep Houser DO [address] [facility] [place] [address] Omt [facility] Comment on above: Omt Start: 07-23-2024 Annual PCP Team Chronic Disease Visit Annual PCP Team Chronic Disease Visit [facility] Start: 07-21-2024 End: 07-21-2024 Patient encounter procedure 07/21/2024 4:00 PM EDT Office Visit Family [facility] [address] [facility] [place] [address] Mnadeep Houser, [address] [facility] [place] [address] 2 week follow up Family [facility] Comment on above: 2 week follow up Start: 07-08-2024 End: 10-07-2024 25-hydroxyvitamin D3 [Mass/volume] in Serum or Plasma [facility] Comment on above: Expected: 07/08/2024, Expires: Start: 07-08-2024 End: 10-07-2024 Cobalamin (Vitamin B12) [Mass/volume] in Serum or Plasma [facility] Comment on above: Expected: 07/08/2024, Expires: Start: 07-08-2024 End: 10-07-2024 Comprehensive metabolic 2000 panel - Serum or Plasma [facility] Comment on above: Expected: 07/08/2024, Expires: Start: 07-08-2024 End: 10-07-2024 Magnesium [Mass/volume] in Serum or Plasma [facility] Comment on above: Expected: 07/08/2024, Expires: Start: 07-08-2024 End: 10-07-2024 Natriuretic peptide.B prohormone N-Terminal [Mass/volume] in Serum or Plasma [facility] Comment on above: Expected: 07/08/2024, Expires: Start: 07-08-2024 End: 07-08-2024 Patient encounter procedure 07/08/2024 2:00 PM EST Office Visit [facility] [address] [place] [address] Mandeep Houser DO [address] [place] [address] OMT [facility] Comment on above: OMT Start: 07-08-2024 End: 10-07-2024 Thyrotropin [Units/volume] in Serum or Plasma [facility] Comment on above: Expected: 07/08/2024, Expires: Start: 07-08-2024 End: 10-07-2024 Thyroxine (T4) free [Mass/volume] in Serum or Plasma [facility] Comment on above: Expected: 07/08/2024, Expires: Start: 07-08-2024 End: 10-07-2024 Urinalysis complete panel - Urine [facility] Work Phone: Comment on above: Expected: 07/08/2024, Expires: Start: 06-20-2024 End: 06-20-2024 Patient encounter procedure 06/20/2024 2:20 PM EST Office Visit [facility] [address] [place] [address] Mandeep Houser, [address] [place] [address] OMT [facility] Comment on above: OMT Start: 06-12-2024 BP Controlled (<130/80) BP Controlled (<130/80) [facility] Start: 05-30-2024 End: 05-30-2024 Patient encounter procedure 05/30/2024 3:20 PM EST Office Visit [facility] [address] [facility] [place] [address] Mandeep Houser, [address] [place] [address] OMT [facility] Comment on above: OMT Start: 05-14-2024 Advance Directive Discussion Advance Directive Discussion [facility] Start: 05-12-2024 End: 05-12-2024 Patient encounter procedure 05/12/2024 3:20 PM EST Office Visit [facility] [address] [facility] [place] [address] Mandeep Houser, DO [address] [place] [address] OMT [facility] Comment on above: OMT Start: 04-22-2024 End: 07-22-2024 Bacteria identified in Urine by Culture URINE CULTURE Microbiology Routine Suprapubic pain Expected: 04/22/2024, Expires: 07/22/2024 [facility] Work Phone: Comment on above: Expected: 04/22/2024, Expires: 5 Start: 04-22-2024 End: 07-22-2024 C reactive protein [Mass/volume] in Serum or Plasma [facility] Comment on above: Expected: 04/22/2024, Expires: 5 Start: 04-22-2024 End: 07-22-2024 Comprehensive metabolic 2000 panel - Serum or Plasma [facility] Comment on above: Expected: 04/22/2024, Expires: 5 Start: 04-22-2024 End: 07-22-2024 Lipase [Enzymatic activity/volume] in Serum or Plasma [facility] Comment on above: Expected: 04/22/2024, Expires: Start: 04-22-2024 End: 04-22-2024 Patient encounter procedure 04/22/2024 2:00 PM EST Office Visit [facility] [address] [place] [address] Mandeep Houser, DO [address] [place] [address] OMT [facility] Comment on above: OMT Start: 04-17-2024 Annual PCP Team Chronic Disease Visit Annual PCP Team Chronic Disease Visit [facility] Start: 03-18-2024 End: 03-18-2024 Patient encounter procedure 03/18/2024 2:00 PM EST Office Visit [facility] [address] [place] [address] Mandeep Houser, DO [address] [place] [address] OMT [facility] Comment on above: OMT Start: 02-12-2024 End: 02-12-2024 Patient encounter procedure 02/12/2024 2:00 PM EDT Office Visit [facility] [address] [place] [address] Mandeep Houser, DO [address] [place] [address] OMT [facility] Comment on above: OMT Start: 02-12-2024 End: 05-13-2024 Thyrotropin [Units/volume] in Serum or Plasma [facility] Work Phone: Comment on above: Expected: 02/12/2024, Expires: Start: 02-12-2024 End: 05-13-2024 Thyroxine (T4) free [Mass/volume] in Serum or Plasma [facility] Comment on above: Expected: 02/12/2024, Expires: Start: 02-12-2024 End: 05-13-2024 Triiodothyronine (T3) Free [Mass/volume] in Serum or Plasma [facility] Comment on above: Expected: 02/12/2024, Expires: Start: 02-07-2024 End: 02-07-2024 Patient encounter procedure 02/07/2024 2:20 PM EDT Office Visit Cardiology [address] [address] Angel Castro DO [address] [place] [address] 3 month follow up Cardiology Comment on above: 3 month follow up Start: 02-07-2024 Annual PCP Team Chronic Disease Visit Annual PCP Team Chronic Disease Visit [facility] Start: 02-01-2024 DIABETES SCREEN DIABETES SCREEN [facility] Start: 01-29-2024 End: 04-29-2024 Thyrotropin [Units/volume] in Serum or Plasma THYROID STIMULATING HORMONE Lab Routine Hypothyroidism, acquired Expected: 01/29/2024, Expires: 04/29/2024 [facility] Work Phone: Comment on above: Expected: 01/29/2024, Expires: Start: 01-29-2024 End: 04-29-2024 Thyroxine (T4) free [Mass/volume] in Serum or Plasma T4 FREE/FREE THYROXINE Lab Routine Hypothyroidism, acquired Expected: 01/29/2024, Expires: 04/29/2024 [facility] Comment on above: Expected: 01/29/2024, Expires: Start: 01-29-2024 End: 04-29-2024 Triiodothyronine (T3) Free [Mass/volume] in Serum or Plasma T3, FREE Lab Routine Hypothyroidism, acquired Expected: 01/29/2024, Expires: 04/29/2024 [facility] Comment on above: Expected: 01/29/2024, Expires: Start: 01-29-2024 End: 01-29-2024 Patient encounter procedure 01/29/2024 11:40 AM EDT Office Visit [facility] [address] [facility] [place] [address] Mandeep Houser DO [address] [place] [address] OMT [facility] Comment on above: OMT Start: 01-15-2024 End: 01-15-2024 Patient encounter procedure 01/15/2024 1:00 PM EDT Office Visit Cardiology [address] [facility] [address] [place] [id number] [place] [address] [place] [address] 5 months follow up in office per Cardiology Comment on above: 5 months follow up in office per Start: 01-10-2024 ANNUAL PCP TEAM CHRONIC DISEASE VISIT ANNUAL PCP TEAM CHRONIC DISEASE VISIT [facility] Start: 01-07-2024 End: 01-07-2024 Patient encounter procedure Cardiology Comment on above: 5 month follow up office appointment per Start: 01-04-2024 End: 01-04-2024 Patient encounter procedure 01/04/2024 4:20 PM EDT Office Visit [facility] [address] [place] [address] Mandeep Houser DO [address] [place] [address] OMT [facility] Comment on above: OMT Start: 12-14-2023 ANNUAL PCP TEAM CHRONIC DISEASE VISIT ANNUAL PCP TEAM CHRONIC DISEASE VISIT [facility] Start: 12-12-2023 End: 12-12-2023 Patient encounter procedure 12/12/2023 3:40 PM EDT Office Visit [facility] [place] [address] [facility] [place] [address] Mandeep Houser DO [address] [facility] [place] [id number] OMT [facility] Comment on above: OMT Start: 12-05-2023 End: 12-05-2023 Patient encounter procedure 12/05/2023 1:00 PM EDT Appointment Cardiology Lab [address] [place] [address] ECHO Cardiology Lab Comment on above: ECHO Start: 11-27-2023 End: 11-27-2023 Patient encounter procedure 11/27/2023 11:20 AM EDT Office Visit [facility] [place] [address] [facility] [place] [address] Mandeep Houser, [address] [place] [address] OMT [facility] Comment on above: OMT Start: 11-14-2023 End: 11-14-2023 Patient encounter procedure 11/14/2023 11:40 AM EDT Office Visit Cardiology [address] [address] Angel Castro, DO [address] [place] [address] 3 month follow up Cardiology Comment on above: 3 month follow up Start: 11-07-2023 End: 11-07-2023 Patient encounter procedure 11/07/2023 1:00 PM EDT Office Visit Cardiology [address] [address] ECHO Cardiology Comment on above: ECHO Start: 11-01-2023 End: 11-01-2023 Patient encounter procedure Cardiology Comment on above: follow up check incision Word finding difficu lty [R47.89]; New onset of headaches after age 50 [R51.9] Start: 10-31-2023 End: 10-31-2023 Patient encounter procedure 10/31/2023 3:00 PM EDT Office Visit [facility] [address] [place] [address] Mandeep Houser, [address] [place] [address] 3 month follow up Family [facility] Comment on above: 3 month follow up Start: 10-31-2023 End: 01-30-2024 25-hydroxyvitamin D3 [Mass/volume] in Serum or Plasma [facility] Work Phone: Comment on above: Expected: 10/31/2023, Expires: 4 Start: 10-31-2023 End: 01-30-2024 C reactive protein [Mass/volume] in Serum or Plasma [facility] Comment on above: Expected: 10/31/2023, Expires: 4 Start: 10-31-2023 End: 01-30-2024 Iron and Iron binding capacity panel - Serum or Plasma [facility] Comment on above: Expected: 10/31/2023, Expires: 4 Start: 10-31-2023 End: 01-30-2024 Magnesium [Mass/volume] in Serum or Plasma [facility] Comment on above: Expected: 10/31/2023, Expires: Start: 10-31-2023 End: 01-30-2024 Thyrotropin [Units/volume] in Serum or Plasma [facility] Comment on above: Expected: 10/31/2023, Expires: Start: 10-31-2023 End: 01-30-2024 Thyroxine (T4) free [Mass/volume] in Serum or Plasma [facility] Comment on above: Expected: 10/31/2023, Expires: Start: 10-31-2023 End: 01-30-2024 Triiodothyronine (T3) Free [Mass/volume] in Serum or Plasma [facility] Comment on above: Expected: 10/31/2023, Expires: 4 Start: 10-15-2023 BP CONTROLLED (<130/80) BP CONTROLLED (<130/80) [facility] Start: 10-15-2023 End: 01-14-2024 Comprehensive metabolic 2000 panel - Serum or Plasma [facility] Work Phone: Comment on above: Expected: 10/15/2023, Expires: 4 Start: 10-15-2023 End: 01-14-2024 Urate [Mass/volume] in Serum or Plasma [facility] Comment on above: Expected: 10/15/2023, Expires: 4 Start: 10-11-2023 ANNUAL PCP TEAM CHRONIC DISEASE VISIT ANNUAL PCP TEAM CHRONIC DISEASE VISIT [facility] Start: 10-02-2023 End: 10-02-2023 ambulatory Cardiology Comment on above: Phone visit 6-[address] Wells please call [phone] Start: 09-24-2023 End: 09-24-2023 Patient encounter procedure 09/24/2023 10:15 AM EDT Office Visit Podiatry [address] [place], [place] [id number] Oliverio Mata [address] [place], [place] [id number] left foot pain swollen Podiatry Comment on above: left foot pain swollen Start: 09-19-2023 End: 12-19-2023 Basic metabolic 2000 panel - Serum or Plasma BASIC METABOLIC PANEL Lab Routine Nonischemic cardiomyopathy (HCC) Chronic systolic congestive heart failure (HCC) Expected: 09/19/2023 (Approximate), Expires: 12/19/2023 [facility] Work Phone: Comment on above: Expected: 09/19/2023 (Approximate), Expi res: 12/19/2023 Start: 09-05-2023 End: 12-05-2023 Lipid 1996 panel - Serum or Plasma LIPID PANEL BASIC Lab Routine Mixed hyperlipidemia Expected: 09/05/2023, Expires: 12/05/2023 [facility] Comment on above: Expected: 09/05/2023, Expires: Start: 08-23-2023 ANNUAL PCP TEAM CHRONIC DISEASE VISIT ANNUAL PCP TEAM CHRONIC DISEASE VISIT [facility] Start: 08-15-2023 BP CONTROLLED (<130/80) BP CONTROLLED (<130/80) [facility] Start: 08-03-2023 ANNUAL PCP TEAM CHRONIC DISEASE VISIT ANNUAL PCP TEAM CHRONIC DISEASE VISIT [facility] Start: 07-24-2023 End: 10-23-2023 25-hydroxyvitamin D3 [Mass/volume] in Serum or Plasma [facility] Work Phone: Comment on above: Expected: 07/24/2023, Expires: Start: 07-22-2023 ANNUAL PCP TEAM CHRONIC DISEASE VISIT ANNUAL PCP TEAM CHRONIC DISEASE VISIT [facility] Start: 07-22-2023 Hepatitis B surface antibody level LDL CHOLESTEROL [facility] Start: 07-22-2023 HEPATITIS C SCREENING HEPATITIS C SCREENING [facility] Comment on above: Postponed from 1964 (Declined at t his time) Start: 07-22-2023 Hepatitis C screening Hepatitis C Screening [facility] Comment on above: Postponed from 1964 (Declined at t his time) Start: 07-22-2023 Urine microalbumin profile [facility] Comment on above: Postponed from 1965 (Declined at t his time) Start: 07-19-2023 ANNUAL PCP TEAM CHRONIC DISEASE VISIT ANNUAL PCP TEAM CHRONIC DISEASE VISIT [facility] Start: 05-14-2023 Advance Directive Discussion Advance Directive Discussion [facility] Start: 05-14-2023 Behavioral Health Screening Behavioral Health Screening [facility] Start: 05-14-2023 Depression Assessment Depression Assessment [facility] Start: 05-13-2023 ADVANCE DIRECTIVE DISCUSSION ADVANCE DIRECTIVE DISCUSSION [facility] Comment on above: Postponed from 05/14/2022 (Declined at t his time) Start: 05-03-2023 ANNUAL PCP TEAM CHRONIC DISEASE VISIT ANNUAL PCP TEAM CHRONIC DISEASE VISIT [facility] Start: 03-10-2023 ANNUAL PCP TEAM CHRONIC DISEASE VISIT ANNUAL PCP TEAM CHRONIC DISEASE VISIT [facility] Start: 03-10-2023 BP CONTROLLED (<130/80) BP CONTROLLED (<130/80) [facility] Start: 02-09-2023 End: 04-11-2023 CBC W Auto Differential panel - Blood CBC + DIFF Lab Routine Hypothyroidism, unspecified type Expected: 02/09/2023, Expires: 04/11/2023 [facility] Work Phone: Comment on above: Expected: 02/09/2023, Expires: 3 Start: 02-09-2023 End: 04-11-2023 Comprehensive metabolic 2000 panel - Serum or Plasma COMP METABOLIC PANEL Lab Routine Hypothyroidism, unspecified type Expected: 02/09/2023, Expires: 04/11/2023 [facility] Work Phone: Comment on above: Expected: 02/09/2023, Expires: 3 Start: 02-09-2023 End: 04-11-2023 Thyrotropin [Units/volume] in Serum or Plasma TSH BLD Lab Routine Hypothyroidism, unspecified type Expected: 02/09/2023, Expires: 04/11/2023 [facility] Work Phone: Comment on above: Expected: 02/09/2023, Expires: 3 Start: 02-09-2023 End: 04-11-2023 Thyroxine (T4) free [Mass/volume] in Serum or Plasma T4 FREE/FREE THYROX Lab Routine Hypothyroidism, unspecified type Expected: 02/09/2023, Expires: 04/11/2023 [facility] Work Phone: Comment on above: Expected: 02/09/2023, Expires: 3 Start: 02-09-2023 End: 04-11-2023 Triiodothyronine (T3) Free [Mass/volume] in Serum or Plasma T3 FREE BLD Lab Routine Hypothyroidism, unspecified type Expected: 02/09/2023, Expires: 04/11/2023 [facility] Work Phone: Comment on above: Expected: 02/09/2023, Expires: 3 Start: 01-20-2023 ANNUAL PCP TEAM CHRONIC DISEASE VISIT ANNUAL PCP TEAM CHRONIC DISEASE VISIT [facility] Start: 01-20-2023 BP CONTROLLED (<130/80) BP CONTROLLED (<130/80) [facility] Start: 01-12-2023 Hepatitis B surface antibody level LDL CHOLESTEROL [facility] Start: 12-19-2022 BP CONTROLLED (<130/80) BP CONTROLLED (<130/80) [facility] Start: 11-02-2022 BP CONTROLLED (<130/80) BP CONTROLLED (<130/80) [facility] Start: 10-19-2022 ANNUAL PCP TEAM CHRONIC DISEASE VISIT ANNUAL PCP TEAM CHRONIC DISEASE VISIT [facility] Start: 10-14-2022 End: 10-28-2022 Influenza virus A and B RNA and SARS-CoV-2 (COVID-19) N gene panel - Respiratory specimen by PRECIOUS with probe detection COVID WITH FLUA+B, ROUTINE Microbiology Routine Sore throat Acute cough Expected: 10/14/2022, Expires: 10/28/2022 [facility] Work Phone: Comment on above: Expected: 10/14/2022, Expires: 3 Start: 09-21-2022 ANNUAL PCP TEAM CHRONIC DISEASE VISIT ANNUAL PCP TEAM CHRONIC DISEASE VISIT [facility] Start: 09-14-2022 Hepatitis B surface antibody level LDL CHOLESTEROL [facility] Start: 09-01-2022 ANNUAL PCP TEAM CHRONIC DISEASE VISIT ANNUAL PCP TEAM CHRONIC DISEASE VISIT [facility] Start: 08-15-2022 Mammography MAMMOGRAM [facility] Start: 07-01-2022 ANNUAL PCP TEAM CHRONIC DISEASE VISIT ANNUAL PCP TEAM CHRONIC DISEASE VISIT [facility] Start: 05-14-2022 ADVANCE DIRECTIVE DISCUSSION ADVANCE DIRECTIVE DISCUSSION [facility] Start: 05-14-2022 DEPRESSION ASSESSMENT DEPRESSION ASSESSMENT [facility] Start: 02-20-2022 End: 02-13-2023 Echocardiography ECHO Cardiology Routine Cardiomegaly Expected: 02/20/2022, Expires: 02/13/2023 [facility] Work Phone: Comment on above: Expected: 02/20/2022, Expires: 3 Start: 12-29-2021 PNEUMOCOCCAL: 65+ (2 - PCV) PNEUMOCOCCAL: 65+ (2 - PCV) [facility] Start: 12-22-2021 Hepatitis B surface antibody level LDL CHOLESTEROL [facility] Start: 12-09-2021 Adult depression screening assessment DEPRESSION SCREENING [facility] Start: 11-29-2021 End: 01-29-2022 Basic metabolic 2000 panel - Serum or Plasma BASIC METABOLIC PNL Lab Routine Chronic systolic CHF (congestive heart failure) (HCC) Expected: 11/29/2021, Expires: 01/29/2022 [facility] Work Phone: Comment on above: Expected: 11/29/2021, Expires: 2 Start: 11-29-2021 End: 01-29-2022 CBC panel - Blood by Automated count CBC Lab Routine Chronic systolic CHF (congestive heart failure) (HCC) Expected: 11/29/2021, Expires: 01/29/2022 [facility] Work Phone: Comment on above: Expected: 11/29/2021, Expires: 2 Start: 10-20-2021 End: 12-20-2021 T3 BLD T3 BLD Lab Routine Hypothyroidism, unspecified type Expected: 10/20/2021, Expires: 12/20/2021 [facility] Work Phone: Comment on above: Expected: 10/20/2021, Expires: 2 Start: 10-20-2021 End: 12-20-2021 T4 FREE/FREE THYROX T4 FREE/FREE THYROX Lab Routine Hypothyroidism, unspecified type Expected: 10/20/2021, Expires: 12/20/2021 [facility] Work Phone: Comment on above: Expected: 10/20/2021, Expires: 2 Start: 10-20-2021 End: 12-20-2021 Thyrotropin [Units/volume] in Serum or Plasma TSH BLD Lab Routine Hypothyroidism, unspecified type Expected: 10/20/2021, Expires: 12/20/2021 [facility] Work Phone: Comment on above: Expected: 10/20/2021, Expires: 2 Start: 09-01-2021 End: 11-01-2021 CBC W Auto Differential panel - Blood CBC + DIFF Lab Routine Primary hypertension Expected: 09/01/2021, Expires: 11/01/2021 [facility] Work Phone: Comment on above: Expected: 09/01/2021, Expires: 2 Start: 09-01-2021 End: 11-01-2021 Comprehensive metabolic 2000 panel - Serum or Plasma COMP METABOLIC PANEL Lab Routine Primary hypertension Hypokalemia Expected: 09/01/2021, Expires: 11/01/2021 [facility] Work Phone: Comment on above: Expected: 09/01/2021, Expires: 2 Start: 09-01-2021 End: 11-01-2021 Hemoglobin A1c/Hemoglobin.total in Blood HGB A1C Lab Routine Screening for diabetes mellitus Abnormal finding of blood chemistry, unspecified Expected: 09/01/2021, Expires: 11/01/2021 [facility] Work Phone: Comment on above: Expected: 09/01/2021, Expires: 2 Start: 09-01-2021 End: 11-01-2021 LIPID PANEL BASIC LIPID PANEL BASIC Lab Routine Mixed hyperlipidemia Expected: 09/01/2021, Expires: 11/01/2021 [facility] Work Phone: Comment on above: Expected: 09/01/2021, Expires: 2 Start: 09-01-2021 End: 11-01-2021 Thyrotropin [Units/volume] in Serum or Plasma TSH BLD Lab Routine Screening for thyroid disorder Expected: 09/01/2021, Expires: 11/01/2021 [facility] Work Phone: Comment on above: Expected: 09/01/2021, Expires: 2 Start: 09-01-2021 End: 11-01-2021 VITAMIN D 25 HYDROXY VITAMIN D 25 HYDROXY Lab Routine Encounter for vitamin deficiency screening Body mass index (BMI) 34.0-34.9, adult Expected: 09/01/2021, Expires: 11/01/2021 [facility] Work Phone: Comment on above: Expected: 09/01/2021, Expires: 2 Start: 08-09-2021 Mammography MAMMOGRAM [facility] Start: 2021 RSV Vaccine (1 - 1-dose 75+ series) RSV Vaccine (1 - 1-dose 75+ series) [facility] Start: 05-14-2021 ADVANCE DIRECTIVE DISCUSSION ADVANCE DIRECTIVE DISCUSSION [facility] Start: 05-14-2021 DEPRESSION ASSESSMENT DEPRESSION ASSESSMENT [facility] Start: 12-19-2019 Colonoscopy COLONOSCOPY [facility] Start: 12-19-2019 COLORECTAL CANCER SCREENING COLORECTAL CANCER SCREENING [facility] Start: 07-17-2011 BONE DENSITY BONE DENSITY [facility] Start: 07-13-2011 Medicare Annual Wellness Visit Medicare Annual Wellness Visit [facility] Start: 2006 RSV Vaccine (1 - 1-dose 60+ series) RSV Vaccine (1 - 1-dose 60+ series) [facility] Start: 1996 SHINGRIX VACCINE (1 of 2) SHINGRIX VACCINE (1 of 2) [facility] Start: 07-17-1991 COLOGUARD (FIT-DNA) COLOGUARD (FIT-DNA) [facility] Start: 07-17-[address] COLONOGRAPHY [facility] Start: 07-17-1991 FECAL OCCULT BLOOD FECAL OCCULT BLOOD [facility] Start: 07-17-1991 SIGMOIDOSCOPY SIGMOIDOSCOPY [facility] Start: 1965 Urine microalbumin profile [facility] Start: 1964 BP CONTROLLED (<130/80) BP CONTROLLED (<130/80) [facility] Start: 1964 HEPATITIS C SCREENING HEPATITIS C SCREENING [facility] Start: 1964 Hepatitis C screening Hepatitis C Screening [facility] End: 11-18-2022 Ct abdomen & pelvis w/contrast material CT ABD/PEL W IVCON Radiology Routine Diverticulitis RLQ abdominal pain Lower abdominal pain 1 Occurrences starting 10/19/2021 until 11/18/2022 [facility] Work Phone: Comment on above: 1 Occurrences starting 10/19/2021 until 11/18/2022 End: 09-21-2023 Ct abdomen & pelvis w/contrast material CT ABD/PEL W IVCON Radiology STAT Abdominal distension (gaseous) Nausea RUQ abdominal pain 1 Occurrences starting 08/22/2022 until 09/21/2023 [facility] Work Phone: Comment on above: 1 Occurrences starting 08/22/2022 until 09/21/2023 End: 11-29-2024 CT Head WO contrast CT BRAIN WO IVCON Radiology STAT Word finding difficulty New onset of headaches after age 50 1 Occurrences starting 10/31/2023 until 11/29/2024 [facility] Comment on above: 1 Occurrences starting 10/31/2023 until 11/29/2024 End: 08-20-2023 DXA-AXIAL SKELETON DXA-AXIAL SKELETON Radiology Routine Screening for osteoporosis Asymptomatic menopause 1 Occurrences starting 07/21/2022 until 08/20/2023 [facility] Work Phone: Comment on above: 1 Occurrences starting 07/21/2022 until 08/20/2023 End: 08-04-2023 ECG COMPLETE ECG COMPLETE ECG Routine Primary hypertension Palpitations Mixed hyperlipidemia 1 Occurrences starting 08/03/2022 until 08/04/2023 [facility] Work Phone: Comment on above: 1 Occurrences starting 08/03/2022 until 08/04/2023 ECG COMPLETE [facility] Work Phone: Comment on above: Ordered: 04/09/2023 ECG COMPLETE ECG COMPLETE ECG Routine LBBB (left bundle branch block) Presence of cardiac resynchronization therapy defibrillator (ENERGY AUDITOR-D) Acute on chronic systolic CHF (congestive heart failure) (HCC) Ordered: 08/07/2023 [facility] Work Phone: Comment on above: Ordered: 08/07/2023 ECG COMPLETE ECG COMPLETE ECG Routine Presence of cardiac resynchronization therapy defibrillator (ENERGY AUDITOR-D) Non-ischemic cardiomyopathy (HCC) LBBB (left bundle branch block) Ordered: 11/01/2023 [facility] Work Phone: Comment on above: Ordered: 11/01/2023 ECG COMPLETE ECG COMPLETE ECG Routine Cardiac resynchronization therapy defibrillator (ENERGY AUDITOR-D) in place Ordered: 11/03/2024 [facility] Work Phone: Comment on above: Ordered: 11/03/2024 OUTSIDE VENDOR CARDI AC OUTPATIENT EXTENDED RHYTHM RECORDING (WITHOUT TELEMETRY) OUTSIDE VENDOR CARDIAC OUTPATIENT EXTENDED RHYTHM RECORDING (WITHOUT TELEMETRY) Holter Routine Primary hypertension Palpitations Ordered: 08/14/2022 [facility] Work Phone: Comment on above: Ordered: 08/14/2022 OUTSIDE VENDOR CARDI AC OUTPATIENT EXTENDED RHYTHM RECORDING (WITHOUT TELEMETRY) OUTSIDE VENDOR CARDIAC OUTPATIENT EXTENDED RHYTHM RECORDING (WITHOUT TELEMETRY) Holter Routine Cardiac resynchronization therapy defibrillator (ENERGY AUDITOR-D) in place Ordered: 11/03/2024 [facility] Comment on above: Ordered: 11/03/2024 Patient Education ED Chest Wall Contusion [facility] Work Phone: SURGICAL PATHOLOGY [facility] Work Phone: Comment on above: Release Upon Ordering for 1 Occurrences starting 12/05/2021, 1 completed UA DIP, URINE (POC) UA DIP, URIN E (POC) Lab Routine Vagina, candidiasis Burning with urination Ordered: 08/22/2023 [facility] Work Phone: Comment on above: Ordered: 08/22/2023 End: 08-07-2025 XR Chest PA and Lateral XR CHEST 2V FRONTAL/LAT Radiology Routine Acute cough 1 Occurrences starting 07/08/2024 until 08/07/2025 [facility] Comment on above: 1 Occurrences starting 07/08/2024 until 08/07/2025 XR Chest PA and Lateral XR CHEST 2V FRONTAL/LAT Radiology Routine Acute cough 07/08/2024 3:31 PM EST [facility] End: 10-23-2024 XR Foot - left AP and Lateral and oblique XR FOOT GENERAL 3V AP/LAT/OBL LEFT Radiology Routine Repetitive stress injury 1 Occurrences starting 09/24/2023 until 10/23/2024 [facility] Work Phone: Comment on above: 1 Occurrences starting 09/24/2023 until 10/23/2024 XR Foot - left AP an d Lateral and oblique XR FOOT GENERAL 3V AP/LAT/OBL LEFT Radiology Routine Repetitive stress injury 09/24/2023 11:15 AM EDT [facility] End: 12-06-2024 XR Lumbar spine 3 Views XR LUMBAR GENERAL 3V AP/LAT/L5-S1 Radiology Routine Acute midline low back pain without sciatica 1 Occurrences starting 11/07/2023 until 12/06/2024 [facility] Work Phone: Comment on above: 1 Occurrences starting 11/07/2023 until 12/06/2024 [facility] Immunizations Immunization Date Immunization Notes Care Provider Fa gideon 07-21-2022 pneumococcal (PCV20) vaccine, 20 valent (PREVNAR 20) Alejandrina Yasir CON[employer]IT [employer] Work Phone: [facility] 07-21-2022 pneumococcal Conjuga te, unspecified formulation Alejandrina Yasir [employer] Work Phone: [facility] Work Phone: 12-29-2020 pneumococcal polysaccharide vaccine, 23 valent Estelita Maradiaga PT Work Phone: [facility] Work Phone: Payers Date Payer Category Payer Self-pay 2013 Private Health Insurance [facility] AARP SUPPLEMENT [id number] 2013-Present [phone] [address] [place] [address] Indemnity [id number] 2013 Private Health Insurance [id number] 2013 Unknown [id number] 2011 Medicare MEDICARE MEDICAR E A AND B [id number] 2011-Present [phone] [address] [address] [place] [address] Medicare [id number] 2011 Medicare [id number] 2011 Medicare [id number] Medicare [id number] Unknown NOLANARE/AKRO [id number] Unknown [id number] Unknown [id number] Unknown [id number] Unknown [id number] Unknown [id number] Unknown [id number] Unknown [id number] Social History Date Type Detail Facility Start: 09-03-2020 End: 11-13-2024 Tobacco smoking status NHIS Ex-smoker [facility] End: 10-22-2002 History of tobacco use Current smoker [facility] End: 10-22-2002 History of tobacco use Cigarette Smoker [facility] Start: 07-01-2021 End: 11-03-2024 Alcohol intake Current non-drinker of alcohol (finding) [facility] Start: 1945 Sex Assigned At Not on file C [facility] Start: 03-21-2020 End: 03-10-2022 Exposure to SARS-CoV-2 (event) Not sure [facility] Start: 09-03-2020 End: 01-15-2024 Tobacco use and exposure Smokeless tobacco non-user [facility] Start: 09-27-2022 End: 10-14-2022 History of Social function [facility] Work Phone: Start: 09-27-2022 End: 10-14-2022 Tobacco use panel [facility] Work Phone: Adult Depression Screening Assessment 0 [facility] Work Phone: Has the [employer], or water [employer] threatened to shut off services in your home in past 12Mo No [facility] How hard is it for y ou to pay for the very basics like food, housing, medical care, and heating Not very hard [facility] (I/We) worried paulo er (my/our) food would run out before (I/we) got money to buy more. Never true [facility] Start: 08-29-2023 [facility] Start: 1945 Sex Assigned At Female W [facility] NEGATED: Highlighted row - - [facility] Work Phone: Medical Equipment Procedure Code Equipment Code Equipment Original Text Equipment Identifier Dates Sling Dennis Polypropylene 60x1.1cm Suburethral Transobturator Tape - [id number] Start: 05-24-2020 Icd-Pouy2ss Baltazar lt Xt Hf Quad Fur Scraper-D [id number] Start: 2023 [id number] Caps urefix Novus [id number] Start: 2023 [id number] Narinder in Stability Quad Mri Surescan [id number] Start: 2023 [id number] Spr int Quattro Secure S [id number] Start: 2023 Goals Date Patient Goal Desired Activity /State Personal health goal Functional Status Date Assessment Result Facility 11-18-2023 Are you deaf, or do you have serious difficulty hearing No 11/18/2023 1:06 PM Lena Holloway, CARO No [facility] 11-18-2023 Are you blind, or do you have serious difficulty seeing, even when wearing glasses No 11/18/2023 1:06 PM Lena Holloway, CARO No [facility] 11-18-2023 Do you have serious difficulty walking or climbing stairs No 11/18/2023 1:06 PM Lena Holloway, CARO No [facility] 11-18-2023 Do you have difficul ty dressing or bathing No 11/18/2023 1:06 PM Lena Holloway, CARO No [facility] 11-18-2023 Because of a physica l, mental, or emotional condition, do you have difficulty doing errands alone such as visiting a physician's office or shopping No 11/18/2023 1:06 PM EDT Lena Lennon RN No [facility] NEGATED: Highlighted row Functional performance Functional status health issues are not documented [facility] [employer] Work Phone: Mental Status Date Assessment Result Facility 11-18-2023 Because of a physical, mental, or emotional condition, do you have serious difficulty concentrating, remembering, or making decisions No 11/18/2023 1:06 PM EDT Lena Lennon RN No [facility] NEGATED: Highlighted row Cognitive function [Interpretation] Cognitive status health issues are not documented [facility] [employer] Work Phone: Clinical Notes 04-27-2020 to 11-13-2024 Note Date & Type Note Facility 11-13-2024 Discharge summary [facility] 11-13-2024 Radiology Diagnostic study note [facility] [address] [place] [address] [id number] Chest without Contrast MR#: [id number] Acct: [id number] Name: SANDRA SCHMITZ Rep #: [id number] : 1945 F 79 From: Julianna Lanza MD PCP: Dr. Mandeep Houser, DO Status: RE G ER Study:Chest without Contrast Date of Exam: 11/13/24 Exam# [id number] Ordering Dr: Mykel Goldberg MD PROCEDURE: CHEST [...] acute finding on noncontrast examination. Reading Location: [id number] CC: Dr. Jose Goldberg MD; Dr. Mandeep Houser DO ~ Wafer Fab Operator: Signed [facility] 11-13-2024 Radiology Diagnostic study note [facility] [address] [place] [address] [id number] Brain/Head without Contrast MR#: [id number] Acct: [id number] Name: SANDRA SCHMITZ Rep #: [id number] : 1945 F 79 From: Julianna Lanza MD PCP: Dr. Mandeep Houser DO Status: RE G ER Study:Brain/Head without Contrast Date of Exa m: 11/13/24 Exam# [id number] Ordering Dr: Mykel Goldberg MD EXAM: BRAIN/HEAD [...] IMPRESSION: No acute intracranial finding. Reading Location: [facility] CC: Dr. Jose Goldberg MD; Dr. Mandeep Houser DO ~ Wafer Fab Operator: Signed [facility] 11-13-2024 Radiology Diagnostic study note [facility] [address] [place] [address] Hand Min 3 Views MR#: [id number] Acct: [id number] Name: NADIRSANDRA Rep #: [id number] : 1945 F 79 From: Julianna Lanza MD PCP: Dr. Mandeep Houser DO Status: RE G ER Study:Hand Min 3 Views Date of Exam: 08/05 Exam# [id number] Ordering Dr: Mykel Goldberg MD PROCEDURE: HAND MIN 3 VIEWS 11/13/2024 REASON FOR EXAM: PAIN/INJURY TECHNIQUE: HAND MIN 3 VIEWS, right COMPARISON: None. FINDINGS: Bones: No acute fracture. No aggressive osseous lesions. Joints: Normal alignment. Moderate degenerative changes. Soft tissues: Soft tissues are unremarkable. RAD/Hand Min 3 Views IMPRESSION: DEGENERATIVE OSTEOARTHROSIS. NO ACUTE FINDINGS. Reading Location: [facility] CC: Dr. Jose Goldberg MD; Dr. Mandeep Houser DO ~ Wafer Fab Operator: Signed [facility] 11-13-2024 Radiology Diagnostic study note [facility] [address] [place], [place] [address] Chest 1 View (Portable) MR#: [id number] Acct: [id number] Name: SANDRA SCHMITZ Rep #: [id number] : 1945 F 79 From: Julianna Lanza MD PCP: Dr. Mandeep Houser DO Status: RE G ER Study:Chest 1 View (Portable) Date of Exam: 11/13/24 Exam# [id number] Ordering Dr: Mykel Goldberg MD PROCEDURE: CHEST 1 VIEW (PORTABLE) 11/13/2024 REASON FOR EXAM: FALL/INJURY CHEST TECHNIQUE: Frontal view of the chest. COMPARISON: Chest radiograph 03/27/2024. FINDINGS: Hardware: Left chest wall pacemaker in place. Heart: Stable mild cardiomegaly. Lungs: Low lung volumes, vekx-[id number]-right. Visualization of the left lung is limited due to overlying pacemaker. No large consolidation, pleural effusion or pneumothorax. Bones: Degenerative changes are identified within the thoracic spine. RAD/Chest 1 View (Portable) IMPRESSION: Cardiomegaly. No acute findings. Reading Location: [facility] CC: Dr. Jose Goldberg MD; Dr. Mandeep Houser DO ~ Wafer Fab Operator: Signed [facility] 11-13-2024 Discharge summary Note Date/Time November 13, 2024 10:33pm [facility] Medical Records Department [address] [place] [id number] Emergency Department Summary 11/13/24 MR#: [id number] Acct: [id number] Name: SANDRA SCHMITZ Rep #:[id number] : 1945 79 From: oJse Goldberg MD PCP: Dr. Mandeep Houser, Status:RE [...] anticoagulants but takes a baby aspirin daily. [facility] Medical History Obesity Former tobacco use [...] % (Auto) Cancelled Lymph % (Auto) Cancelled [place] % (Auto) Cancelled Eos % (Auto) Cancelled [...] Drop Cells Cancelled Ovalocytes Cancelled Stomatocytes Cancelled [place] Bodies Cancelled Rocky Cells Cancelled Bite Cells [...] Clarity Clear Urine pH 6.5 Ur Specific [place] 1.010 Urine Protein 15 H Urine Glucose [...] % (Auto) 61.4 Lymph % (Auto) 26.8 [place] % (Auto) 8.8 Eos % (Auto) 1.3 [...] Target Cells Tear Drop Cells Ovalocytes Stomatocytes [place] Bodies Rocky Cells Bite Cells Crenated Cell Acanthocytes (Spur) Rouleaux Schistocytes Sodium Potassium Chloride Carbon Dioxide Anion Gap BUN Creatinine Estim Creat Clear Calc Est GFR (MDRD) Non-Af BUN/Creatinine Ratio Glucose Calcium Urine Color Urine Clarity Urine pH Ur Specific [place] Urine Protein Urine Glucose (UA) Urine Ketones Urine Occult Blood Urine Nitrite Urine Bilirubin Urine Urobilinogen Ur Leukocyte Esterase Urine RBC Urine WBC Ur Squamous Epith Cells Urine Bacteria Urine Mucus Radiography Diagnostic Testing: Clinical Impression(s) from Imaging Studies Chest X-Ray 11/13/24 18:45 IMPRESSION: Cardiomegaly. No acute findings. Reading Location: [facility] Hand X-Ray 11/13/24 18:46 IMPRESSION: DEGENERATIVE OSTEOARTHROSIS. NO ACUTE FINDINGS. Reading Location: [facility] Brain CT 11/13/24 19:57 IMPRESSION: No acute intracranial finding. Reading Location: [facility] Chest CT 11/13/24 19:57 IMPRESSION: Visualization is limited by motion artifact and streak artifact from left chest wall pacemaker. No acute finding on noncontrast examination. Reading Location: [facility] Rhythm Strip Rhythm Strip: Sinus Rhythm Rate: [...] is an option for this. Print Language: Kazakh Disposition Disposition: Home, Self Care What to do if you have Problems For any increased pain, shortness of breath, bleeding, nausea or vomiting, chestpain, or any unexpected problems, contact your Primary Care Provider. Call [facility] ([phone]) or report to the closest Emergency Room. Call 911 if necessary. 11/13/242232 <Electronically signed by Jose Goldberg MD> Cosigner Signature (if applicable): CC: Dr. Mandeep Houser DO ~ Signed [facility] Work Phone: 1(110) 802-889906-25-2025 NoteHNO ID: [id number] Author: CHASIDY LYN MA Service: ? Author Type: Salon Stylist Type: Progress Notes Filed: 11/05/2024 14:20 Note [...] Chasidy Lyn MA November 05, 2024 2:18 [facility] History of Present illness Narrative* Chasidy [...] 05, 2024 2:18 PM documented in this encounterGreene [facility] NotePatient Outreach (NETNAV) SANDRA SCHMITZ ([id number]) 1945 F Date Time Provider Department 11/05/24 [...] Health Navigation Outreach [[id number]] Cmt: [facility] Prescriptions as of 11/05/2024 - metoprolol succinate [...] right [M19.071] 08/02/2022 Coronary artery disease involving united keetoowah lopez*08/02/2022 Vitamin D deficiency [E55.9] 08/02/2022 Somatic dysfunction of head region [M99.00] 08/10/2022 Chronic neck pain [M54.2, G89.29] 08/24/2022 Chronic bronchitis (HCC) [J42] 09/11/2022 SVT (suprave (more content not included)...[facility]06-23-2025 NoteHNO ID: [id number] Author: DILCIA HOOKS MA Service: ? Author Type: Salon Stylist Type: Progress Notes Filed: 11/03/2024 15:58 Note Text: EVENT MONITOR DISPOSABLE PATCH INSTRUCTIONS Patient Name: [facility] Number: [id number] Skin prepped and cleansed with alcohol Patch secured to prepped area Monitor Activated Serial #: [id number] Patient Instructed: Prescribed order timeframe Bathing guidelines Usage of event button and diary documentation Return of monitor at the end of prescribed order Call with problems [phone] or [phone]. [phone] Patient expresses a good understanding of instructions Dilcia Hooks [facility]06-23-2025 History of Present illness Narrative* Dilcia Hooks MA - 11/03/2024 3:57 PM EDT EVENT MONITOR DISPOSABLE PATCH INSTRUCTIONS Patient Name: [facility] Number: [id number] Skin prepped and cleansed with alcohol Patch secured to prepped area Monitor Activated Serial #: [id number] Patient Instructed: Prescribed order timeframe Bathing guidelines Usage of event button and diary documentation Return of monitor at the end of prescribed order Call with problems [phone] or [phone]. [phone] Patient expresses a good understanding of instructions Dilcia Hooks MA documented in this encounterGreene [facility] Hospital06-[facility]25 History of Present illness Narrative* HillMorenita [email or web address].[employer]ICAL [employer]ICE SALES - 11/03/2024 3:30 PM EDT Images from the original note were not included. [facility] [place] [facility] Department of Cardiovascular Medicine SECTION OF ELECTROPHYSIOLOGY AND PACING OUTPATIENT VISIT DATE November 03, 2024 OUTPATIENT VISIT TYPE ESTABLISHED PRIMARY CARE PHYSICIAN: Mandeep Houser [address] [place] [address] CHIEF COMPLAINT: Follow Up HISTORY OF PRESENT ILLNESS: Ms. Schmitz is a 79 year old female, patient of Dr. Wellington and Dr. Wells who presents today for a cardiovascular medicine follow-up visit regarding ENERGY AUDITOR-D which was placed in July of last year during which time she had been admitted to [facility] for acute HFrEF and inability to initiate GDMT. She was deemed excellent candidate for ENERGY AUDITOR therapy and thus had MDT ENERGY AUDITOR-D inserted. Since then, Ms. Schmitz reports that overall she has been feeling well. She has noted over the last several months that when shh is anxious or rushing, she may feel her heart racing with some palpitations. When she rests, symptoms resolve. Overall, since device insertion, she has significantly improved functional capacity. She is compliant with all medications. PMH: Chronic NICM s/p MDT ENERGY AUDITOR-D, dyslipidemia, hypothyroidism, Factor V Leiden, IBS, h/o gout PAST MEDICAL HISTORY Diagnosis Date Acute acalculous cholecystitis 05/30/2020 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 09/22/2020 Acute on chronic systolic CHF (congestive heart failure) ([facility]) 05/03/2020 Aspiration pneumonia ([facility]) 05/30/2020 Chest pain 05/03/2020 Chest pressure 01/23/2013 [...] Testing. IMPRESSION/PLAN: Chronic Non-ischemic cardiomyopathy s/p MDT ENERGY AUDITOR-D (07/2023) ECG today demonstrates atrial sensed, ventricular [...] SGL2i: N/A due to intolerance Device: MDT ENERGY AUDITOR-D (BiV pacing 87.1%) Will contact patient with results and plan. Will arrange for 6 month follow up with DR. Wellington withdevice check prior. If BiVP is optimized, then can extend to annual follow up. CONTACT INFORMATION: Morenita Hill APRN.TIM Cardiology [address] [facility] [address] [facility] [address] Dept: [phone] Dept documented in this encounterGreene Memorial Hospital06-23-2025 NoteHNO ID: [id number] Author: MORENITA HILL APRN.TIM Service: ? Author Type: Nurse Practitioner Type: Progress Notes Filed: 11/03/2024 15:59 Note Text: [facility] [place] [facility] Department of Cardiovascular Medicine SECTION OF ELECTROPHYSIOLOGY AND PACING OUTPATIENT VISIT DATE November 03, 2024 OUTPATIENT VISIT TYPE ESTABLISHED PRIMARY CARE PHYSICIAN: Mandeep Houser [address] [place] [address] CHIEF COMPLAINT: Follow Up HISTORY OF PRESENT ILLNESS: Ms. Schmitz is a 79 year old female, patient of Dr. Wellington and Dr. Wells who presents today for a cardiovascular medicine follow-up visit regarding ENERGY AUDITOR-D which was placed in July of last year during which time she had been admitted to [facility] for acute HFrEF and inability to initiate GDMT. She was deemed excellent candidate for ENERGY AUDITOR therapy and thus had MDT ENERGY AUDITOR-D inserted. Since then, Ms. Schmitz reports that overall she has been feeling well. She has noted over the last several months that when shh is anxious or rushing, she may feel her heart racing with some palpitations. When she rests, symptoms resolve. Overall, since device insertion, she has significantly improved functional capacity. She is compliant with all medications. PMH: Chronic NICM s/p MDT ENERGY AUDITOR-D, dyslipidemia, hypothyroidism, Factor V Leiden, IBS, h/o gout PAST MEDICAL HISTORY Diagnosis Date Acute acalculous cholecystitis 05/30/2020 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 09/22/2020 Acute on chronic systolic CHF (congestive heart failure) ([facility]) 05/03/2020 Aspiration pneumonia ([facility]) 05/30/2020 Chest pain 05/03/2020 Chest pressure 01/23/2013 Chronic diastolic congestive heart failure ([facility]) 02/14/2021 Clostridium difficile diarrhea 09/28/2020 Complete uterovaginal prolapse Cystocele, midline Essential hypertension 06/14/2020 Homozygous Factor V Leiden mutation ([facility]) 05/03/2020 Hypothyroidism IBS (irritable bowel syndrome) 01/23/2013 [...] capsule by mouth thre (more content not included)...[facility]06-23-2025 NoteHNO ID: [id number] Author: PILI WELLS MD Service: ? Author Type: Physician Type: Progress Notes Filed: 11/09/2024 17:30 Note Text: [facility] [place] [facility] SECTION OF HEART FAILURE and CARDIAC TRANSPLANT MEDICINE [facility] OUTPATIENT VISIT DATE November 03, 2024 OUTPATIENT VISIT TYPE Established PRIMARY CARE PHYSICIAN: Mandeep Houser [address] [place] [address] CHIEF COMPLAINT: Follow Up HISTORY OF PRESENT ILLNESS: Sandra Schmitz is a 78 year old female with a medical history that includes non-ischemic CM, HTN, Hypothyroidism, LBBB s/p ENERGY AUDITOR-D who is referred to me for heart failure management. Sandra Schmitz was initially diagnosed with non-ischemic CM ~ 4 yrs ago and was doing well on losartan and metoprolol. She had progressive sxs of dyspnea on exertion, therefore she was started on entresto and farxiga and her sxs persisted and she was admitted locally in [place] and then transferred to for ENERGY AUDITOR consideration. Interval History: Sandra Schmitz was last [...] LVEF 40%, LVEdd 4.8cm. LBBB: chronic. S/p ENERGY AUDITOR 07/2023 Non-obstructive CAD: stable, ischemic testing recently [...] pressure 01/23/2013 Chronic diastolic congestive heart failure ([facility]) 02/14/2021 Clostridium difficile diarrhea 09/28/2020 Complete uterovaginal [...] Short of breath, sympto (more content not included)...[facility] 11-03-2024 History of Present illness Narrative* Pili Wells MD - 11/03/2024 2:17 PM EDT Images from the original note were not included. [facility] [place] [facility] SECTION OF HEART FAILURE and CARDIAC TRANSPLANT MEDICINE [facility] OUTPATIENT VISIT DATE November 03, 2024 OUTPATIENT VISIT TYPE Established PRIMARY CARE PHYSICIAN: Mandeep Houser [address] [place] [address] CHIEF COMPLAINT: Follow Up HISTORY OF PRESENT ILLNESS: Sandra Schmitz is a 78 year old female with a medical history that includes non-ischemic CM, HTN, Hypothyroidism, LBBB s/p ENERGY AUDITOR-D who is referred to me for heart failure management. Sandra Schmitz was initially diagnosed with non-ischemic CM ~ 4 yrs ago and was doing well on losartan and metoprolol. She had progressive sxs of dyspnea on exertion, therefore she was started on entresto and farxiga and her sxs persisted and she was admitted locally in [place] and then transferredto for ENERGY AUDITOR consideration. Interval History: Sandra Schmitz was last [...] LVEF 40%, LVEdd 4.8cm. LBBB: chronic. S/p ENERGY AUDITOR 07/2023 Non-obstructive CAD: stable, ischemic testing recently with no ischemia or infarction. 06/2023 Nuc SPECT: no ischemia or infarction. 10/2021 Cath: mod LAD, D1 prox 40%, mild RCA disease dominant, EF 35%. Hx of HTN: PAST MEDICAL HISTORY Diagnosis Date Acute acalculous cholecystitis 05/30/2020 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 09/22/2020 Acute on chronic systolic CHF (congestive heart failure) ([facility]) 05/03/2020 Aspiration pneumonia ([facility]) 05/30/2020 Chest pain 05/03/2020 Chest pressure 01/23/2013 Chronic diastolic congestive heart failure ([facility]) 02/14/2021 Clostridium difficile diarrhea 09/28/2020 Complete uterovaginal prolapse Cystocele, midline Essential hypertension 06/14/2020 Homozygous Factor V Leiden mutation ([facility]) 05/03/2020 Hypothyroidism IBS (irritable bowel syndrome) 01/23/2013 [...] to tingling/BADILLO - Vasodilators: no - Device: ENERGY AUDITOR-D - Cardiomems: no - Other: lasix 20mg [...] above. Continues to report symptomatic improvement with ENERGY AUDITOR. Echo 08/2023 reviewed - LVEF remains low, LV not as dilated, MR improved as well. + LVH GDMT: as above, increase toprol XL to 50mg daily Labs 07/08/24 reviewed: K 4.9, Cr 0.85, NT pro 2.1K Due to suboptimal ENERGY AUDITOR pacing increase toprol XL to 50mg daily --> seeing EP after this appointment. Discussed amyloid testing as well --> she doesn't wish to pursue currently 2. Non-obsctructive CAD: on aspirin and toprol as above On aspirin 81mg daily, not on statin - reports intolerance. 3. PVCs; LBBB s/p ENERGY AUDITOR-D -- suboptimal ENERGY AUDITOR pacing: increasing toprol XL given PVCs on [...] Wells MD [facility] Trans[facility] [place] [address] Appointment: [phone] documented in this encounterGreene Memorial Hospital06-23-2025 Instructions* Patient Instructions* Pili Wells MD - [...] and weight daily. Please notify us via Sookasa if your Systolic BP (top number) < [...] heart kidney injury risk Please send a YouGoDo message or call with any questions or concerns: Outpatient Number: [phone] Thank you, Pili Wells MD Advanced Heart Failure and Transplant [facility] [address], [place] [address] For [facility] patients , contact: [facility]- Section Of Heart Failure and Cardiac Transplant Medicine [facility] [place] [facility] - Desk [phone] [phone] [facility] Nurse Line and for Refills- call [phone] [facility] Scheduling Line- to make appointments- call [phone] documented in this encounterGreene Memorial Hospital06-10-2025 NoteHNO ID: [id number] Author: MANDEEP HOUSER, DO Service: ? Author [...] on chronic systolic CHF (congestive heart failure) ([facility]) 05/03/2020 Aspiration pneumonia ([facility]) 05/30/2020 Chest pain 05/03/2020 Chest pressure 01/23/2013 Chronic diastolic congestive heart failure ([facility]) 02/14/2021 Clostridium difficile diarrhea 09/28/2020 Complete uterovaginal prolapse Cystocele, midline Essential hypertension 06/14/2020 Homozygous Factor V Leiden mutation ([facility]) 05/03/2020 Hypothyroidism IBS (irritable bowel syndrome) 01/23/2013 [...] right head, [id number] Right (more content not included)...[facility]06-10-2025 History of Present illness Narrative* Mandeep [...] on chronic systolic CHF (congestive heart failure) ([facility]) 05/03/2020 Aspiration pneumonia ([facility]) 05/30/2020 Chest pain 05/03/2020 Chest pressure 01/23/2013 Chronic diastolic congestive heart failure ([facility]) 02/14/2021 Clostridium difficile diarrhea 09/28/2020 Complete uterovaginal prolapse Cystocele, midline Essential hypertension 06/14/2020 Homozygous Factor V Leiden mutation ([facility]) 05/03/2020 Hypothyroidism IBS (irritable bowel syndrome) 01/23/2013 [...] plan. See patient instructions. Mandeep Houser DO [address] [place] [address] documented in this encounterGreene Memorial Hospital05-20-2025 NoteHNO ID: [id number] Author: MANDEEP HOUSER DO Service: ? Author [...] on chronic systolic CHF (congestive heart failure) ([facility]) 05/03/2020 Aspiration pneumonia ([facility]) 05/30/2020 Chest pain 05/03/2020 Chest pressure 01/23/2013 Chronic diastolic congestive heart failure ([facility]) 02/14/2021 Clostridium difficile diarrhea 09/28/2020 Complete uterovaginal prolapse Cystocele, midline Essential hypertension 06/14/2020 Homozygous Factor V Leiden mutation ([facility]) 05/03/2020 Hypothyroidism IBS (irritable bowel syndrome) 01/23/2013 [...] leg Right lower leg (more content not included)...[facility] 09-15-2024 NoteHNO ID: [id number] Author: DORINDA YOUNG MA Service: ? Author Type: Salon Stylist Type: Progress Notes Filed: 09/15/2024 12:40 Note Text: POPULATION HEALTH NAVIGATION OUTREACH Action/FYI Called and left a message to call [phone], to discuss health maintenance items that are [...] Dorinda Young MA September 15, 2024 12:39 [facility]05-05-2025 History of Present illness Narrative* Dorinda Young MA - 09/15/2024 12:39 PM EDT POPULATION HEALTH NAVIGATION OUTREACH Action/FYI Called and left a message to call [phone], to discuss health maintenance items that are [...] 15, 2024 12:39 PM documented in this encounterGreene Memorial Hospital05-05-2025 NotePatient Outreach (NETNAV) SANDRA SCHMITZ ([id number]) 1945 F Date Time Provider Department 09/15/24 DORINDA YOUNG During your visit today, we recorded the following information about you: Dorinda Young MA 09/15/2024 12:40 PM Addendum POPULATION HEALTH NAVIGATION OUTREACH Action/MARIVEL Called and left a message to call [phone], to discuss health maintenance items that are [...] right [M19.071] 08/02/2022 Coronary artery disease involving united keetoowah lopez*08/02/2022 Vitamin D deficiency [E55.9] 08/02/2022 Somatic dysfunction of head region [M99.00] 08/10/2022 Chronic neck pain [M54.2, G89.29] 08/24/2022 Chronic bronchitis (HCC) [J42] 09/11/2022 SVT (supraventricular tachycardia) (HCC) [I47.1*09/11/2022 Combined systolic and diastolic cardi (more content not included)...[facility]04-17-2025 NoteHNO ID: [id number] Author: MANDEEP HOUSER, DO Service: ? Author [...] on chronic systolic CHF (congestive heart failure) ([facility]) 05/03/2020 Aspiration pneumonia ([facility]) 05/30/2020 Chest pain 05/03/2020 Chest pressure 01/23/2013 Chronic diastolic congestive heart failure ([facility]) 02/14/2021 Clostridium difficile diarrhea 09/28/2020 Complete uterovaginal prolapse Cystocele, midline Essential hypertension 06/14/2020 Homozygous Factor V Leiden mutation ([facility]) 05/03/2020 Hypothyroidism IBS (irritable bowel syndrome) 01/23/2013 [...] ankle arthrosis bracing ASSESSMENT/PLAN: (more content not included)...[facility]04-17-2025 History of Present illness Narrative* Mandeep [...] on chronic systolic CHF (congestive heart failure) ([facility]) 05/03/2020 Aspiration pneumonia ([facility]) 05/30/2020 Chest pain 05/03/2020 Chest pressure 01/23/2013 Chronic diastolic congestive heart failure (HCC) 02/14/2021 Clostridium difficile diarrhea 09/28/2020 Complete uterovaginal prolapse Cystocele, midline Essential hypertension 06/14/2020 Homozygous Factor V Leiden mutation ([facility]) 05/03/2020 Hypothyroidism IBS (irritable bowel syndrome) 01/23/2013 [...] of water. Gentle stretches at home. Mandeep Hosuer DO Return if no improvement. Follow up with Mandeep Houser DO. To ER if develops chest pain, shortness of breath. Discussed risks, benefits, alternatives, and potential side effects of medications. Patient/Guardian expressed understanding and agreed with the plan. See patient instructions. Mandeep Houser DO [address] [place] [address] documented in this encounterGreene Memorial Hospital04-16-2025 Miscellaneous Notes* Telephone Encounter - Radha Buchanan - 08/27/2024 10:22 AM EDT Call to patient to r/s. Patient is driving out from [place] and would prefer all appointments same day as Dr. Wells. Rescheduled to Friday 11/03 with device check, OV with Morenita Hill and Dr. Wells. * Telephone Encounter - Radha Buchanan - 08/27/2024 10:21 AM EDT ----- Message from Dilcia Bonilla MD sent at 08/23/2024 9:30 AM EDT ----- I saw her in '24 Please reschedule with Mercedes + device documented in this encounterGreene Memorial Hospital04-16-2025 Telephone encounter Note * Telephone Encounter - Radha Buchanan - 08/27/2024 10:22 AM EDT Call to patient to r/s. Patient is driving out from [place] and would prefer all appointments same day as Dr. Wells. Rescheduled to Friday 11/03 with device check, OV with Morenita iHll and Dr. Wells. [facility]04-16-[facility] Telephone encounter Note* Telephone Encounter - Radha Buchanan - 08/27/2024 10:21 AM EDT ----- Message from Dilcia Bonilla MD sent at 08/23/2024 9:30 AM EDT ----- I saw her in '24 Please reschedule with Mercedes + device [facility]04-14-20[facility] Instructions* Patient Instructions* Mandeep Houser DO - 08/25/2024 4:32 PM EDT Magnesium glycinate 250-500 mg in the evening with supper Use as a capsule or powder or tablet To help muscles documented in this encounterGreene Memorial Hospital03-25-2025 NoteHNO ID: [id number] Author: MANDEEP HOUSER DO Service: ? Author [...] pain - ICD (more content not included)... [facility]03-25-2025 History of Present illness Narrative* Mandeep [...] on chronic systolic CHF (congestive heart failure) ([facility]) 05/03/2020 Aspiration pneumonia ([facility]) 05/30/2020 Chest pain 05/03/2020 Chest pressure 01/23/2013 Chronic diastolic congestive heart failure ([facility]) 02/14/2021 Clostridium difficile diarrhea 09/28/2020 Complete uterovaginal prolapse Cystocele, midline Essential hypertension 06/14/2020 Homozygous Factor V Leiden mutation ([facility]) 05/03/2020 Hypothyroidism IBS (irritable bowel syndrome) 01/23/2013 [...] See patient instructions. Mandeep Houser DO [address] [place] [address] documented in this encounterGreene Memorial Hospital03-10-2025 NoteHNO ID: [id number] Author: MANDEEP HOUSER DO Service: ? Author [...] October Would like to have her medical internet marketing intern more local for better accessibility She had labs and a chest xray Currently Cough, chest congestion, symptoms are improved. Just still with some fatigue but seems to be getting better. No further cough, no sputum production, no fevers or chills. Heart failure. Has an echo to get scheduled and completed for the internet marketing intern, taking her medications as prescribed. PAST MEDICAL HISTORY Diagnosis Date Acute acalculous cholecystitis 05/30/2020 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 09/22/2020 Acute on chronic systolic CHF (congestive heart failure) ([facility]) 05/03/2020 Aspiration pneumonia ([facility]) 05/30/2020 Chest pain 05/03/2020 Chest pressure 01/23/2013 Chronic diastolic congestive heart failure ([facility]) 02/14/2021 Clostridium difficile diarrhea 09/28/2020 Complete uterovaginal prolapse Cystocele, midline Essential hypertension 06/14/2020 Homozygous Factor V Leiden mutation ([facility]) 05/03/2020 Hypothyroidism IBS (irritable bowel syndrome) 01/23/2013 [...] EOMs intact b/l, na (more content not included)...[facility]03-10-2025 History of Present illness Narrative* Mandeep [...] October Would like to have her medical internet marketing intern more local for better accessibility She had labs and a chest xray Currently Cough, chest congestion, symptoms are improved. Just still with some fatigue but seems to be getting better. No further cough, no sputum production, no fevers or chills. Heart failure. Has an echo to get scheduled and completed for the internet marketing intern, taking her medications as prescribed. PAST MEDICAL HISTORY Diagnosis Date Acute acalculous cholecystitis 05/30/2020 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 09/22/2020 Acute on chronic systolic CHF (congestive heart failure) ([facility]) 05/03/2020 Aspiration pneumonia (HCC) 05/30/2020 Chest pain [...] 428.0, ICD10: I50.42 - chronic, managed by Floor Layer Helper 7. Vitamin D deficiency - ICD9: 268.9, ICD10: E55.9 Increase dose of supplement as d/w her today Mandeep Houser DO Return if no improvement. Follow up with Mandeep Houser DO. To ER if develops chest pain, shortness of breath. Discussed risks, benefits, alternatives, and potential side effects of medications. Patient/Guardian expressed understanding and agreed with the plan. See patient instructions. Mandeep Houser DO [address] [place] [address] documented in this encounterGreene Memorial Hospital02-25-2025 History of Present illness Narrative* Boone Neumann [...] PATIENT PRESENTS WITH AN IMPLANTABLE OR ATTACHED TIME ANALYSIS CLERK: No RADIOLOGY DEPARTMENT: General X-ray: Exam(s) Completed: Chest X-Ray PERIPHERAL IV DATA: Not applicable SIGNED BY: Marino Arevalo July 08, 2024 3:31 PM documented in this encounterGreene Memorial Hospital02-25-2025 NoteHNO ID: [id number] Author: BOONE NEUMANN Tech Service: ? Author [...] PATIENT PRESENTS WITH AN IMPLANTABLE OR ATTACHED TIME ANALYSIS CLERK: No RADIOLOGY DEPARTMENT: General X-ray: Exam(s) Completed: Chest X-Ray PERIPHERAL IV DATA: Not applicable SIGNED BY: Marino Arevalo July 08, 2024 3:31 [facility]02-25-2025 NoteHNO ID: [id number] Author: MANDEEP HOUSER, DO Service: ? Author [...] October Would like to have her medical internet marketing intern more local for better accessibility PAST MEDICAL HISTORY Diagnosis Date Acute acalculous cholecystitis 05/30/2020 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 09/22/2020 Acute on chronic systolic CHF (congestive heart failure) ([facility]) 05/03/2020 Aspiration pneumonia ([facility]) 05/30/2020 Chest pain 05/03/2020 Chest pressure 01/23/2013 Chronic diastolic congestive heart failure (HCC) 02/14/2021 Clostridium difficile diarrhea 09/28/2020 Complete uterovaginal prolapse Cystocele, midline Essential hypertension 06/14/2020 Homozygous Factor V Leiden mutation ([facility]) 05/03/2020 Hypothyroidism IBS (irritable bowel syndrome) 01/23/2013 [...] (primary diagnosis) Injection o (more content not included)...[facility]02-[facility]-2025 History of Present illness Narrative* Mandeep [...] October Would like to have her medical internet marketing intern more local for better accessibility PAST MEDICAL HISTORY Diagnosis Date Acute acalculous cholecystitis 05/30/2020 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 09/22/2020 Acute on chronic systolic CHF (congestive heart failure) ([facility]) 05/03/2020 Aspiration pneumonia ([facility]) 05/30/2020 Chest pain 05/03/2020 Chest pressure 01/23/2013 Chronic diastolic congestive heart failure ([facility]) 02/14/2021 Clostridium difficile diarrhea 09/28/2020 Complete uterovaginal prolapse Cystocele, midline Essential hypertension 06/14/2020 Homozygous Factor V Leiden mutation ([facility]) 05/03/2020 Hypothyroidism IBS (irritable bowel syndrome) 01/23/2013 [...] chronic, recheck labs Check CXR F/u with Floor Layer Helper - NT PRO BNP - COMPLETE BLOOD [...] plan. See patient instructions. Mandeep Houser DO [address] [place] [address] documented in this encounterGreene [facility] Hospital02-25-[facility]25 Instructions* Patient Instructions* Mandeep Houser DO - 07/08/2024 2:50 PM EST Floor Layer Helper local options Dr.Sleik Dr. [place]s Options for mood Low dose of valerian root 250-500 mg in the evening Light box therapy consideration of light at 10,000 Lux strength- 20-30 minutes a day in the AM fromFeb through August to help mood, can buy this on [employer] for use documented in this encounterGreene [facility] Hospital02-18-2025 Telephone encounter Note * Telephone Encounter - Mandeep Houser DO - 07/01/2024 12:19 PM EST The following approved medication requests have been transmitted electronically. Requested Prescriptions Signed Prescriptions Disp Refills doxycycline (VIBRA-TABS) 100 mg tablet 20 tablet 0 Sig: Take 1 tablet by mouth two times a day for 10 days. Authorizing Provider: MANDEEP HOUSER DO [facility]02-18-2025 Miscellaneous Notes* Telephone Encounter - Mandeep Houser DO - 07/01/2024 12:19 PM EST The following approved medication requests have been transmitted electronically. Requested Prescriptions Signed Prescriptions Disp Refills doxycycline (VIBRA-TABS) 100 mg tablet 20 tablet 0 Sig: Take 1 tablet by mouth two times a day for 10 days. Authorizing Provider: MANDEEP HOUSER DO documented in this encounterGreene Memorial Hospital02-07-2025 NoteHNO ID: [id number] Author: MANDEEP HOUSER DO Service: ? Author [...] on chronic systolic CHF (congestive heart failure) ([facility]) 05/03/2020 Aspiration pneumonia ([facility]) 05/30/2020 Chest pain 05/03/2020 Chest pressure 01/23/2013 Chronic diastolic congestive heart failure (HCC) 02/14/2021 Clostridium difficile diarrhea 09/28/2020 Complete uterovaginal prolapse Cystocele, midline Essential hypertension 06/14/2020 Homozygous Factor V Leiden mutation ([facility]) 05/03/2020 Hypothyroidism IBS (irritable bowel syndrome) 01/23/2013 [...] pain - ICD (more content not included)... [facility]02-07-[facility]25 History of Present illness Narrative* Mandeep [...] on chronic systolic CHF (congestive heart failure) ([facility]) 05/03/2020 Aspiration pneumonia ([facility]) 05/30/2020 Chest pain 05/03/2020 Chest pressure 01/23/2013 Chronic diastolic congestive heart failure ([facility]) 02/14/2021 Clostridium difficile diarrhea 09/28/2020 Complete uterovaginal [...] plan. See patient instructions. Mandeep Houser DO [address] [place] [address] documented in this encounterGreene Memorial Hospital01-17-2025 NoteHNO ID: [id number] Author: MANDEEP HOUSER DO Service: ? Author [...] pressure 01/23/2013 Chronic diastolic congestive heart failure ([facility]) 02/14/2021 Clostridium difficile diarrhea 09/28/2020 Complete uterovaginal prolapse Cystocele, midline Essential hypertension 06/14/2020 Homozygous Factor V Leiden mutation ([facility]) 05/03/2020 Hypothyroidism IBS (irritable bowel syndrome) 01/23/2013 [...] neurovascular tone of ar (more content not included)...[facility]01-17-20[facility] History of Present illness Narrative* Mandeep [...] on chronic systolic CHF (congestive heart failure) ([facility]) 05/03/2020 Aspiration pneumonia ([facility]) 05/30/2020 Chest pain 05/03/2020 Chest pressure 01/23/2013 Chronic diastolic congestive heart failure ([facility]) 02/14/2021 Clostridium difficile diarrhea 09/28/2020 Complete uterovaginal prolapse Cystocele, midline Essential hypertension 06/14/2020 Homozygous Factor V Leiden mutation ([facility]) 05/03/2020 Hypothyroidism IBS (irritable bowel syndrome) 01/23/2013 [...] plan. See patient instructions. Mandeep Houser DO [address] [place] [address] documented in this encounterGreene Memorial Hospital12-30-2024 NoteHNO ID: [id number] Author: MANDEEP HOUSER DO Service: ? Author [...] on chronic systolic CHF (congestive heart failure) ([facility]) 05/03/2020 Aspiration pneumonia ([facility]) 05/30/2020 Chest pain 05/03/2020 Chest pressure 01/23/2013 Chronic diastolic congestive heart failure ([facility]) 02/14/2021 Clostridium difficile diarrhea 09/28/2020 Complete uterovaginal prolapse Cystocele, midline Essential hypertension 06/14/2020 Homozygous Factor V Leiden mutation ([facility]) 05/03/2020 Hypothyroidism IBS (irritable bowel syndrome) 01/23/2013 [...] - ICD9: 724.1, 338.29, (more content not included)...[facility]12-30-[facility] History of Present illness Narrative* Mandeep [...] on chronic systolic CHF (congestive heart failure) ([facility]) 05/03/2020 Aspiration pneumonia ([facility]) 05/30/2020 Chest pain 05/03/2020 Chest pressure 01/23/2013 Chronic diastolic congestive heart failure ([facility]) 02/14/2021 Clostridium difficile diarrhea 09/28/2020 Complete uterovaginal prolapse Cystocele, midline Essential hypertension 06/14/2020 Homozygous Factor V Leiden mutation ([facility]) 05/03/2020 Hypothyroidism IBS (irritable bowel syndrome) 01/23/2013 [...] plan. See patient instructions. Mandeep Houser DO [address] [place] [address] documented in this encounterGreene Memorial Hospital12-10-2024 NoteHNO ID: [id number] Author: MANDEEP HOUSER DO Service: ? Author [...] on chronic systolic CHF (congestive heart failure) ([facility]) 05/03/2020 Aspiration pneumonia ([facility]) 05/30/2020 Chest pain 05/03/2020 Chest pressure 01/23/2013 [...] fullness right head, C3-5 (more content not included)...[facility]12-10-2024 History of Present illness Narrative* Mandeep [...] on chronic systolic CHF (congestive heart failure) ([facility]) 05/03/2020 Aspiration pneumonia ([facility]) 05/30/2020 Chest pain 05/03/2020 Chest pressure 01/23/2013 Chronic diastolic congestive heart failure ([facility]) 02/14/2021 Clostridium difficile diarrhea 09/28/2020 Complete uterovaginal prolapse Cystocele, midline Essential hypertension 06/14/2020 Homozygous Factor V Leiden mutation ([facility]) 05/03/2020 Hypothyroidism IBS (irritable bowel syndrome) 01/23/2013 [...] See patient instructions. Mandeep Houser DO [address] [place] [address] documented in this encounterGreene Memorial Hospital11-26-2024 Telephone encounter Note * Telephone Encounter - [...] thyroid medication rx runs out next month. Maen Pennington LPN April 08, 2024 9:26 AM [facility]11-26-[facility]24 Miscellaneous Notes* Telephone Encounter - Mane Pennington [...] 08, 2024 9:26 AM documented in this encounterGreene Memorial Hospital11-11-2024 Telephone encounter Note * Telephone Encounter - Phyllis Levin MA - 03/24/2024 9:51 AM EST Pt notified. Phyllis Levin MA [facility]11-11-2024 Miscellaneous Notes* Telephone Encounter - Phyllis Levin [...] can send the Rx? documented in this encounterGreene Memorial Hospital11-08-2024 Telephone encounter Note * Telephone Encounter - Mandeep Houser DO - 03/21/2024 5:06 PM EST The following approved medication requests have been transmitted electronically. Requested Prescriptions Signed Prescriptions Disp Refills doxycycline (VIBRA-TABS) 100 mg tablet 20 tablet 0 Sig: Take 1 tablet by mouth two times a day for 10 days. Authorizing Provider: MANDEEP HOUSER DO [facility]11-08-2024 Telephone encounter Note* Telephone Encounter - Sanjeev Carpio RN - 03/21/2024 11:15 AM EST Patient reports she saw pcp on 03-18-24 for OMT. Reports pcp was going to call in AB to [facility], for her scratchy throat, sinus drainage, pt could take if the s/s continue. Reports Joanna Cleaning never recv'd the Rx. Asking if pcp can send the Rx? [facility]10-24-2024 Telephone encounter Note* Telephone Encounter - Sanjeev Carpio RN - 03/06/2024 2:23 PM EDT Pt returned call and given provider's message below with verbalized understanding. [facility]10-24-2024 Miscellaneous Notes* Telephone Encounter - Sanjeev Carpio [...] stable Mandeep Houser DO documented in this encounterGreene Memorial Hospital10-24-2024 Telephone encounter Note * Telephone Encounter - Meena Brown LPN - 03/06/2024 10:20 AM EDT Left message to return call. [facility]10-23-2024 Telephone encounter Note* Telephone Encounter - Mandeep Houser DO - 03/05/2024 10:33 PM EDT Please call patient and let her know that her recent thyroid labs are all stable Mandeep Houser DO [facility]10-01-2024 NoteHNO ID: [id number] Author: MANDEEP HOUSER DO Service: ? Author [...] ICD10: E03.9 (primary diagnos (more content not included)...[facility]10-01-2024 History of Present illness Narrative* Mandeep [...] on chronic systolic CHF (congestive heart failure) ([facility]) 05/03/2020 Aspiration pneumonia ([facility]) 05/30/2020 Chest pain 05/03/2020 Chest pressure 01/23/2013 Chronic diastolic congestive heart failure ([facility]) 02/14/2021 Clostridium difficile diarrhea 09/28/2020 Complete uterovaginal prolapse Cystocele, midline Essential hypertension 06/14/2020 Homozygous Factor V Leiden mutation ([facility]) 05/03/2020 Hypothyroidism IBS (irritable bowel syndrome) 01/23/2013 [...] plan. See patient instructions. Mandeep Houser DO [address] [place] [address] documented in this encounterGreene Memorial Hospital09-26-2024 NoteHNO ID: [id number] Author: ANGEL CASTRO DO Service: ? Author Type: Physician Type: Progress Notes Filed: 02/07/2024 14:40 Note Text: [facility] [place] [facility] Department of Cardiovascular Medicine SECTION OF [facility] CARDIOLOGY/[facility] OUTPATIENT VISIT DATE February 07, 2024 OUTPATIENT VISIT TYPE ESTABLISHED PATIENT Name: Sandra Schmitz : 1945 Date: February 07, 2024 PRIMARY CARE PHYSICIAN: Madneep Houser [address] [place] [address] REFERRING PHYSICIAN: No referring provider defined for this encounter. CHIEF COMPLAINT: Patient presents with: CARD Follow Up 3 Month: PMH: non-ischemic CM, HTN, Hypothyroidism, LBBB s/p ENERGY AUDITOR-D IMPRESSION / PLAN: Severe nonischemic cardiomyopathy status post ENERGY AUDITOR-D in July 2023. - [facility] 10/2021: mod LAD, D1 prox [...] breath or increasing abdominal girth. - s/p ENERGY AUDITOR-D 07/16/23 at [facility] - Follows with advanced heart failure, - Follows with EPDr. [place] and continue follow-up in the device clinic Left bundle branch block - s/p ENERGY AUDITOR-D 07/16/23 at [facility] - Follows with EP, Dr. Wellington Nonobstructive coronary artery disease - [facility] 10/2021: mod LAD, D1 prox [...] an ejection fraction of 23% status post ENERGY AUDITOR-D in July 2023, hypertension and factor V [...] on chronic systolic CHF (congestive heart failure) ([facility]) 05/03/2020 Aspiration pneumonia ([facility]) 05/30/2020 Chest pain 05/03/2020 Chest pressure 01/23/2013 Chronic diastolic congestive heart failure ([facility]) 02/14/2021 Clostridium difficile diarrhea 09/28/2020 Complete uterovaginal prolapse Cystocele, midline Essential hypertension 06/14/2020 Homozygous Factor V Leiden mutation ([facility]) 05/03/2020 Hypothyroidism IBS (irritable bowel syndrome) 01/23/2013 [...] Relation Age of Onset (more content not included)...[facility]09-26-20[facility] History of Present illness Narrative* Angel Castro, DO - 02/07/2024 2:02 PM EDT Images from the original note were not included. [facility] [place] [facility] Department of Cardiovascular Medicine SECTION OF [facility]OLOG[facility] OUTPATIENT VISIT DATE February 07, 2024 OUTPATIENT VISIT TYPE ESTABLISHED PATIENT Name: Sandra Schmitz : 1945 Date: February 07, 2024 PRIMARY CARE PHYSICIAN: Mandeep Houser [address] [place] [address] REFERRING PHYSICIAN: No referring provider defined for this encounter. CHIEF COMPLAINT: Patient presents with: CARD Follow Up 3 Month: PMH: non-ischemic CM, HTN, Hypothyroidism, LBBB s/p ENERGY AUDITOR-D IMPRESSION / PLAN: Severe nonischemic cardiomyopathy status post ENERGY AUDITOR-D in July 2023. - [facility] 10/2021: mod LAD, D1 prox [...] breath or increasing abdominal girth. - s/p ENERGY AUDITOR-D 07/16/23 at [facility] - Follows with advanced heart failure, - Follows with Dr. Kitty DIAZ and continue follow-up in the device clinic Left bundle branch block - s/p ENERGY AUDITOR-D 07/16/23 at [facility] - Follows with EPDr. [place] Nonobstructive coronary artery disease - [facility] 10/2021: mod LAD, D1 prox [...] an ejection fraction of 23% status post ENERGY AUDITOR-D in July 2023, hypertension and factor V [...] on chronic systolic CHF (congestive heart failure) ([facility]) 05/03/2020 Aspiration pneumonia ([facility]) 05/30/2020 Chest pain 05/03/2020 Chest pressure 01/23/2013 Chronic diastolic congestive heart failure (HCC) 02/14/2021 Clostridium difficile diarrhea 09/28/2020 Complete uterovaginal prolapse Cystocele, midline Essential hypertension 06/14/2020 Homozygous Factor V Leiden mutation ([facility]) 05/03/2020 Hypothyroidism IBS (irritable bowel syndrome) 01/23/2013 [...] Cardiovascular testing perfomed today. Angel Castro DO, [facility] Staff Floor Layer Helper Angel and Lizy Nuno Dept. of Cardiovascular Medicine Heart[facility] Vascular [facility] Thor[facility] [place], [facility] This document was generated using the assistance of voice recognition software. If there are any errors of spelling, grammar, syntax or meaning, please feel free to contact me directly at anytime. documented in this encounterGreene Memorial Hospital09-17-2024 NoteHNO ID: [id number] Author: MANDEEP HOUSER DO Service: ? Author [...] on chronic systolic CHF (congestive heart failure) ([facility]) 05/03/2020 Aspiration pneumonia ([facility]) 05/30/2020 Chest pain 05/03/2020 Chest pressure 01/23/2013 Chronic diastolic congestive heart failure ([facility]) 02/14/2021 Clostridium difficile diarrhea 09/28/2020 Complete uterovaginal [...] E03.9 (primary diagnosis) - (more content not included)...[facility]09-17-[facility] History of Present illness Narrative* Mandeep [...] on chronic systolic CHF (congestive heart failure) ([facility]) 05/03/2020 Aspiration pneumonia ([facility]) 05/30/2020 Chest pain 05/03/2020 Chest pressure 01/23/2013 Chronic diastolic congestive heart failure ([facility]) 02/14/2021 Clostridium difficile diarrhea 09/28/2020 Complete uterovaginal prolapse Cystocele, midline Essential hypertension 06/14/2020 Homozygous Factor V Leiden mutation ([facility]) 05/03/2020 Hypothyroidism IBS (irritable bowel syndrome) 01/23/2013 [...] plan. See patient instructions. Mandeep Houser DO [address] [place] [address] documented in this encounterGreene Memorial Hospital09-03-2024 NoteHNO ID: [id number] Author: PILI WELLS MD Service: ? Author Type: Physician Type: Progress Notes Filed: 03/07/2024 19:04 Note Text: [facility] [place] [facility] SECTION OF HEART FAILURE and CARDIAC TRANSPLANT MEDICINE [facility] OUTPATIENT VISIT DATE January 15, 2024 OUTPATIENT VISIT TYPE Established PRIMARY CARE PHYSICIAN: Mandeep Houser [address] [place] [address] CHIEF COMPLAINT: Follow Up HISTORY OF PRESENT ILLNESS: Sandra Schmitz is a 78 year old female with a medical history that includes non-ischemic CM, HTN, Hypothyroidism, LBBB s/p ENERGY AUDITOR-D who is referred to me for heart failure management. Sandra Schmitz was initially diagnosed with non-ischemic CM ~ 4 yrs ago and was doing well on losartan and metoprolol. She had progressive sxs of dyspnea on exertion, therefore she was started on entresto and farxiga and her sxs persisted and she was admitted locally in [place] and then transferred to for ENERGY AUDITOR consideration. Interval History: Sandra Schmitz was last [...] LVEF 40%, LVEdd 4.8cm. LBBB: chronic. S/p ENERGY AUDITOR 07/2023 Non-obstructive CAD: stable, ischemic testing recently [...] on chronic systolic CHF (congestive heart failure) ([facility]) 05/30/2020: Aspiration pneumonia ([facility]) 05/03/2020: Chest pain 01/23/2013: Chest pressure 02/14/2021: Chronic diastolic congestive heart failure ([facility]) 09/28/2020: Clostridium difficile diarrhea No date: Complete uterovaginal prolapse No date: Cystocele, midline 06/14/2020: Essential hypertension 05/03/2020: Homozygous Factor V Leiden mutation ([facility]) No date: Hypothyroidism 01/23/2013: IBS (irritable bowel [...] of heart failure Beta (more content not included)...[facility]09-03-2024 History of Present illness Narrative* Pili Wells MD - 01/15/2024 1:13 PM EDT Images from the original note were not included. [facility] [place] [facility] SECTION OF HEART FAILURE and CARDIAC TRANSPLANT MEDICINE [facility] OUTPATIENT VISIT DATE January 15, 2024 OUTPATIENT VISIT TYPE Established PRIMARY CARE PHYSICIAN: Mandeep Houser [address] [place] [address] CHIEF COMPLAINT: Follow Up HISTORY OF PRESENT ILLNESS: Sandra Schmitz is a 78 year old female with a medical history that includes non-ischemic CM, HTN, Hypothyroidism, LBBB s/p ENERGY AUDITOR-D who [place] heart [place]. Sandra Schmitz was initially diagnosed with non-ischemic CM ~ 4 yrs ago and was doing well on losartan and metoprolol. She had progressive sxs of dyspnea on exertion, therefore she was started on entresto and farxiga and her sxs persisted and she was admitted locally in [place] and then transferredto for ENERGY AUDITOR consideration. Interval History: Sandra Schmitz was last [...] LVEF 40%, LVEdd 4.8cm. LBBB: chronic. S/p ENERGY AUDITOR 07/2023 Non-obstructive CAD: stable, ischemic testing recently [...] on chronic systolic CHF (congestive heart failure) ([facility]) 05/30/2020: Aspiration pneumonia ([facility]) 05/03/2020: Chest pain 01/23/2013: Chest pressure 02/14/2021: Chronic diastolic congestive heart failure ([facility]) 09/28/2020: Clostridium difficile diarrhea No date: Complete uterovaginal prolapse No date: Cystocele, midline 06/14/2020: Essential hypertension 05/03/2020: Homozygous Factor V Leiden mutation ([facility]) No date: Hypothyroidism 01/23/2013: IBS (irritable bowel [...] to tingling/[place]ILLO - Vasodilators: no - Device: ENERGY AUDITOR-D - Cardiomems: no - Other: lasix 20mg daily IMPRESSION and PLAN/Recommendation In summary, Sandra Schmitz is a 78 year old being managed today for the following issues: 1. Non-ischemic Cardiomyopathy/chronic systolic heart failure: NYHA functional class IIb, Stage C heart failure, Clinical Class A - warm and euvolemic. Intolerant to many GDMT as above. Currently will continue. She reports symptomatic improvement post ENERGY AUDITOR. Echo 11/2023 reviewed - LVEF remains low, LV not as dilated, MR improved as well GDMT: as above Did cardiac rehab. Labs 11/2022 reviwed: K 4.0, Cr 0.96 Following with Gloria as well. 2. Non-obsctructive CAD: on aspirin and toprol as above On aspirin 81mg daily, not on stating - reports intolerance. Following with Dr. Castro. 3. LBBB s/p ENERGY AUDITOR-D Thank you for allowing me to participate [...] Wells MD Advanced Heart Failure and Transplant Floor Layer Helper [facility] [place] [address] Appointment: [phone] documented in this encounterGreene Memorial Hospital09-03-2024 Instructions* Patient Instructions* Pili Wells MD - [...] and weight daily. Please notify us via [employer] if your Systolic BP (top number) < [...] heart kidney injury risk Please send a YouGoDo message or call with any questions or concerns: Outpatient Number: [phone] Thank you, Pili Wells MD Advanced Heart Failure and Transplant Floor Layer Helper [place] [phone] documented in this encounterGreene Memorial Hospital08-29-2024 NoteHNO ID: [id number] Author: MANDEEP HOUSER, DO Service: ? Author [...] on chronic systolic CHF (congestive heart failure) ([facility]) 05/30/2020: Aspiration pneumonia ([facility]) 05/03/2020: Chest pain 01/23/2013: Chest pressure 02/14/2021: Chronic diastolic congestive heart failure ([facility]) 09/28/2020: Clostridium difficile diarrhea No date: Complete uterovaginal prolapse No date: Cystocele, midline 06/14/2020: Essential hypertension 05/03/2020: Homozygous Factor V Leiden mutation ([facility]) No date: Hypothyroidism 01/23/2013: IBS (irritable bowel [...] No edema. No sp (more content not included)...[facility]08-29-20[facility] History of Present illness Narrative* Mandeep [...] (congestive heart failure) (HCC) 05/30/2020: Aspiration pneumonia ([facility]) 05/03/2020: Chest pain 01/23/2013: Chest pressure 02/14/2021: [...] plan. See patient instructions. Mandeep Houser DO [address] [place] [address] documented in this encounterGreene Memorial Hospital07-31-2024 NoteHNO ID: [id number] Author: MANDEEP HOUSER DO Service: ? Author [...] on chronic systolic CHF (congestive heart failure) ([facility]) 05/30/2020: Aspiration pneumonia ([facility]) 05/03/2020: Chest pain 01/23/2013: Chest pressure 02/14/2021: Chronic diastolic congestive heart failure ([facility]) 09/28/2020: Clostridium difficile diarrhea No date: Complete uterovaginal prolapse No date: Cystocele, midline 06/14/2020: Essential hypertension 05/03/2020: Homozygous Factor V Leiden mutation ([facility]) No date: Hypothyroidism 01/23/2013: IBS (irritable bowel [...] bilateral thoracic back pain (more content not included)...[facility]07-31-20[facility] History of Present illness Narrative* Mandeep [...] on chronic systolic CHF (congestive heart failure) ([facility]) 05/30/2020: Aspiration pneumonia ([facility]) 05/03/2020: Chest pain 01/23/2013: Chest pressure 02/14/2021: Chronic diastolic congestive heart failure ([facility]) 09/28/2020: Clostridium difficile diarrhea No date: Complete uterovaginal prolapse No date: Cystocele, midline 06/14/2020: Essential hypertension 05/03/2020: Homozygous Factor V Leiden mutation ([facility]) No date: Hypothyroidism 01/23/2013: IBS (irritable bowel [...] plan. See patient instructions. Mandeep Houser DO [address] [place] [address] documented in this encounterGreene Memorial Hospital07-29-2024 Telephone encounter Note * Telephone Encounter - [...] edema. No further questions. Pt confirmed understanding. [facility]07-29-2024 Miscellaneous Notes* Telephone Encounter - eHlen Ramachandran RN - 12/10/2023 11:37 AM EDT [...] 12/10/2023 11:31 AM EDT Pili Wells MD Sc, Please call patient with results. She doesn't have mychart for me to send message. Thanks, * Telephone Encounter - Pili Wells MD - 12/06/2023 6:49 PM EDT Echo results reviewed. LVEF remains stable, mitral regurgitation is improved. At this time we will continue with medications. No changes documented in [facility] encounterGreene [facility] Telephone encounter Note * Telephone Encounter - Helen Ramachandran RN - 12/10/2023 11:31 AM EDT Pili Wells MD Sc, Please call patient with results. She doesn't have mychart for me to send message. Thanks, [facility]07-25-2024 Telephone encounter Note* Telephone Encounter - Pili Wells MD - 12/06/2023 6:49 PM EDT Echo results reviewed. LVEF remains stable, mitral regurgitation is improved. At this time we will continue with medications. No changes [facility]07-17-2024 Telephone encounter Note* Telephone Encounter - Concetta Dahl - 11/28/2023 11:06 AM EDT Transitional Care Management (TCM) [facility] Monitoring Program Provider Action / FYI: N/A SUMMARY: Outreach type: FOLLOW-UP OUTREACH Discharge Network Status: In-Network Discharge Source of Patient: [facility] TCM Discharge Report Patient discharged from [place] on 11/18/23. Admitted for Pre-syncope. Contact made with patient: Yes, for Follow-up Outreach Sc, my name is Concettajose a Edmondslela. I am calling from the [facility] on behalf of your PrimaryCare Provider, Mandeep [...] Appointment Center phone number to speak witha spares scheduler who can assist you with that appointment. [...] Concetta Dahl November 28, 2023 11:09 AM [facility]07-17-2024 Miscellaneous Notes* Telephone Encounter - Concetta Dahl - 11/28/2023 11:06 AM EDT Transitional Care Management (TCM) [facility] Monitoring Program Provider Action / FYI: N/A SUMMARY: Outreach type: FOLLOW-UP OUTREACH Discharge Network Status: [facility] Patient discharged from [place] on 11/18/23. Admitted for Pre-syncope. Contact made with patient: Yes, for Follow-up Outreach Hi, my name is Concetta Nabila. I am calling from the [facility] on behalf of your PrimaryCare Provider, Mandeep [...] Appointment Center phone number to speak witha spares scheduler who can assist you with that appointment. [...] 28, 2023 11:09 AM documented in this encounterGreene [facility] Hospital07-12-[facility]24 Telephone encounter Note * Telephone Encounter - Rojas Prakash RN - 11/23/2023 1:28 PM EDT Transitional Care Management (TCM) [facility] Monitoring Program Provider Action / FYI: na SUMMARY: Outreach type: INITIAL OUTREACH Discharge Network Status: In-Network Discharge Source of Patient: [facility] TCM Discharge Report Patient discharged from [place] on 11.18.23. Admitted for Pre-syncope . Contact made with patient: No - next outreach attempt will be on next business day. Rojas Prakash RN November 23, 2023 1:29 PM [facility]07-12-2024 Miscellaneous Notes* Telephone Encounter - Rojas Prakash RN - 11/23/2023 1:28 PM EDT Transitional Care Management (TCM) [facility] Monitoring Program Provider Action / FYI: na SUMMARY: Outreach type: INITIAL OUTREACH Discharge Network Status: In-Network Discharge Source of Patient: [facility] TCM Discharge Report Patient discharged from [place] on 11.18.23. Admitted for Pre-syncope . Contact made with patient: No - next outreach attempt will be on next business day. Rojas Prakash RN November 23, 2023 1:29 PM documented in this encounterGreene [facility] Telephone encounter Note * Telephone Encounter - [...] No results found for this basename: BNP [facility]07-09-2024 Miscellaneous Notes* Telephone Encounter - Misty Ascencio [...] for this basename: BNP documented in this encounterGreene [facility] Hospital07-06-2024 NoteHNO ID: [id number] Author: REMINGTON CAI MD Service: Hospital Medicine Author Type: Physician Type: Progress Notes Filed: 11/18/2023 08:20 Note Text: DEPARTMENT OF HOSPITAL MEDICINE PROGRESS NOTE SERVICE DATE: 11/17/2023 SERVICE TIME: 3:13 PM Hospital Medicine/Primary Attending: Remingotn Cai MD NIGHT AND WEEKEND COVERAGE: [employer]: Nights: [phone], please page [facility] Hospital[facility] Night coverage pager [phone]. Probable discharge: 11/17 Disposition: Home Consultants: PROCEDURES: [...] (1st dx 2019, 07-12-23: EF 26%), s/p ENERGY AUDITOR-D (July 20, 2023, [employer]), non occlusive CAD ([facility]: ), IBS, Factor V Leiden Syndrome, HTN, HLD, CAD, Hypothyroidism almost blacking out. Patient states that earlier today she was having some abdominal spasms and went to the bathroom. Had a small BM then proceeded to very lightheaded and states her visions kind of went dark but she did not lose full consci (more content not included)...[facility] [id number] NoteHNO ID: [id number] Author: REMINGTON CAI MD Service: Hospital Medicine Author Type: Physician Type: Progress Notes Filed: 11/17/2023 15:12 Note Text: DEPARTMENT OF [facility] MEDICINE PROGRESS NOTE SERVICE DATE: 11/16/2023 SERVICE TIME: 2:31 PM Hospital Medicine/Primary Attending: Remington Cai MD NIGHT AND WEEKEND COVERAGE: [place]: Nights: [phone], please page [place] Hospitalist Night coverage pager [phone]. Probable discharge: 11/16 Disposition: Home Consultants: PROCEDURES: [...] ( dx 2019, 07-12-23: EF 26%), s/p ENERGY AUDITOR-D (July 20, 2023, [employer]), non occlusive CAD ([facility]: ), IBS, Factor V Leiden Syndrome, HTN, HLD, CAD, Hypothyroidism almost blacking out. Patient states that earlier today she was having some abdominal spasms and went (more content not included)...[facility] [id number] NoteHNO ID: [id number] Author: SADIE TALBERT RN Service: Care Management [...] Determined Advance Directives Current Advance Directive: None Hot Molder Attempted to Assist with AD Completion: Yes [...] Be able to go home, General wellness [place] of Choice Explained: [place] of Choice Given: No Reason Not Given: [...] 16, 2023 TIME: 9:42 AM CONTACT #: [phone] [id number] NoteHNO ID: [id number] Author: JP HENNING CT Service: Cardiovascular Testing Author Type: Clinical Financial Rep Type: Progress Notes Filed: 11/16/2023 07:55 Note Text: Summary: Pacemaker Check Received requisition for pacemaker check. Went to patient's room to check device. Patient stated that the device was checked in the ED last night. I checked the patient's hard chart and report from [employer] is in the chart. No need to repeat a device check.[facility] [id number] Telephone encounter Note * Telephone Encounter - Bria Wallace MA - 11/08/2023 8:20 AM EDT Pt notified and verbalized understanding Bria Wallace MA [facility]06-27-2024 Miscellaneous Notes* Telephone Encounter - Bria Wallace [...] Lymph 1.00 - 4.00 k/uL 4.05 (H) [place]% % 9.1 Abs [place] <0.87 k/uL 0.99 (H) Eosin% % 3.1 [...] Neurologist for opinion if symptoms worsen Mandeep Hosuer DO IMPRESSION: No CT evidence of acute intracranial abnormality/hemorrhage Mild degree supratentorial chronic microvascular ischemic changes. Axial image 10, focal area decreased attenuation right insular cortex most consistent with chronic microvascular ischemic changes. documented in this encounterGreene [facility] Hospital06-26-[facility]24 History of Present illness Narrative* Mandeep Houser [...] on chronic systolic CHF (congestive heart failure) ([facility]) 05/03/2020 Aspiration pneumonia ([facility]) 05/30/2020 Chest pain 05/03/2020 Chest pressure 01/23/2013 Chronic diastolic congestive heart failure ([facility]) 02/14/2021 Clostridium difficile diarrhea 09/28/2020 Complete uterovaginal prolapse Cystocele, midline Essential hypertension 06/14/2020 Homozygous Factor V Leiden mutation ([facility]) 05/03/2020 Hypothyroidism IBS (irritable bowel syndrome) 01/23/2013 [...] M54.50 Xrays as ordered Start on prednisone [place] for severe pain, If xrays are without [...] plan. See patient instructions. Mandeep Houser DO [address] [place] [address] documented in this encounterGreene [facility] Hospital06-26-2024 Telephone encounter Note * Telephone Encounter - [...] before breakfast. Authorizing Provider: HOUSERMANDEEP HAUSER DO [facility]06-26-2024 Telephone encounter Note* Telephone Encounter - Petrona Lechuga RN - 11/07/2023 1:03 PM EDT Spoke with patient. Given message from provider's office. Patient verbalizes understanding. Scheduled. Petrona Lechuga RN [facility]06-26-2024 Miscellaneous Notes* Telephone Encounter - Petrona Lechuga [...] on her. Please advise documented in this encounterGreene Memorial Hospital06-26-2024 Telephone encounter Note * Telephone Encounter - Mandeep Houser DO - 11/07/2023 12:36 PM EDT Ok for her to come in at 6 pm tonight for an appointment Mandeep Houser DO [facility]06-26-2024 Telephone encounter Note* Telephone Encounter - Mane Pennington LPN - 11/07/2023 10:36 AM EDT Patient calling asking for an OMT appt having back and hip problems. Patient said her hip went out on her. Please advise [facility]06-25-2024 Telephone encounter Note* Telephone Encounter - Sanjeev [...] Lymph 1.00 - 4.00 k/uL 4.05 (H) [place]% % 9.1 Abs [place] <0.87 k/uL 0.99 (H) Eosin% % 3.1 [...] 2.1 (L) Legend: (H) High (L) Low [facility]06-25-2024 Telephone encounter Note* Telephone Encounter - Merly Gomez OCCA - 11/06/2023 10:14 AM EDT TC no answer. Left VM to return call. BETTY Wells [facility]06-25-2024 Telephone encounter Note* Telephone Encounter - Mandeep Houser DO - 11/06/2023 7:24 AM EDT Please inform patient that CT of her brain is overall stable as below. Can consider follow up with Neurologist for opinion if symptoms worsen Mandeep Hosuer DO IMPRESSION: No CT evidence of acute intracranial abnormality/hemorrhage Mild degree supratentorial chronic microvascular ischemic changes. Axial image 10, focal area decreased attenuation right insular cortex most consistent with chronic microvascular ischemic changes. T [facility]06-20-2024 History of Present illness Narrative* Kirstin Stevens [...] PATIENT PRESENTS WITH AN IMPLANTABLE OR ATTACHED TIME ANALYSIS CLERK: No RADIOLOGY DEPARTMENT: CT; Exam(s) Completed: Brain PERIPHERAL IV DATA: Not applicable SIGNED BY: RT Reyes(Marlee) November 01, 2023 3:05 PM documented in this encounterGreene Memorial Hospital06-20-2024 NoteHNO ID: [id number] Author: KIRSTIN STEVENS RT(Marlee) Service: Radiology Author [...] PATIENT PRESENTS WITH AN IMPLANTABLE OR ATTACHED TIME ANALYSIS CLERK: No RADIOLOGY DEPARTMENT: CT; Exam(s) Completed: Brain PERIPHERAL IV DATA: Not applicable SIGNED BY: RT Reyes(R) November 01, 2023 3:05 [facility]06-20-2024 History of Present illness Narrative* Mercedes Vera APRN.MEDICAL DEVICE SALES - 11/01/2023 9:30 AM EDT Images from the original note were not included. [facility] [place] [facility] Department of Cardiovascular Medicine SECTION OF CARDIAC PACING and ELECTROPHYSIOLOGY OUTPATIENT VISIT DATE November 01, 2023 OUTPATIENT VISIT TYPE ESTABLISHED PRIMARY CARE PHYSICIAN: Mandeep Houser [address] [place] [address] CHIEF COMPLAINT: follow up s/p ENERGY AUDITOR-D HISTORY OF PRESENT ILLNESS: Ms. Schmitz is a 78 year old female who presents today for followed by Dr. Wells, Dr. Wellington, Dr. Greenfield ([facility]), Dr. Oneill, non ischemic cardiomyopathy, chronic HFrEF (2019, 07-12-23: EF 26%), s/p ENERGY AUDITOR-D (July 20, 2023, [employer]), non occlusive CAD ([facility]: ), Other PMH of hypertension, [...] on chronic systolic CHF (congestive heart failure) ([facility]) 05/03/2020 Aspiration pneumonia ([facility]) 05/30/2020 Chest pain 05/03/2020 Chest pressure 01/23/2013 [...] - 4.00 k/uL 3.09 3.14 4.05 (H) [place]% % 8.6 7.3 9.1 Abs [place] <0.87 k/uL 1.15 (H) 0.72 0.99 (H) [...] Programmed parameters reviewed * Presenting rhythm reviewed: /WARRANTY MANAGER * Heart Rate Histograms reviewed * No [...] pacing <0.1%. total V pacing 97.9%. Adaptive ENERGY AUDITOR shows BiV pacing 6.8%, LV only pacing [...] chronic HFrEF (2019, 07-12-23: EF 26%), s/p ENERGY AUDITOR-D (July 20, 2023, [employer]), non occlusive CAD ([facility]: ). -normotensive, ventricular pacing, no [...] with more than 50% of the total [id number]-[id number] time of the visit in counseling / coordination of care. CONTACT INFORMATION: Mercedes Vera APRN.TIM, 11/01/23 [facility] [address] [place] [address] documented in this encounterGreene [facility] Hospital06-19-2024 History of Present illness Narrative* Mandeep Houser, [...] 3 months had a pacemaker placed by [employer]- has upcoming follow up for check up. [...] (congestive heart failure) (HCC) 05/03/2020 Aspiration pneumonia ([facility]) 05/30/2020 Chest pain 05/03/2020 Chest pressure 01/23/2013 Chronic diastolic congestive heart failure ([facility]) 02/14/2021 Clostridium difficile diarrhea 09/28/2020 Complete uterovaginal prolapse Cystocele, midline Essential hypertension 06/14/2020 Homozygous Factor V Leiden mutation ([facility]) 05/03/2020 Hypothyroidism IBS (irritable bowel syndrome) 01/23/2013 [...] with the plan. Mandeep Houser DO [address] [place] [address] documented in this encounterGreene Memorial Hospital06-18-2024 Telephone encounter Note * Telephone Encounter - Radha Buchanan - 10/30/2023 12:00 PM EDT Patient will call back to confirm or change appointment. Will check with daughter and sister for transportation help. Prefers [place] location with Mercedes. [facility]06-18-2024 Miscellaneous Notes* Telephone Encounter - Radha Buchanan - 10/30/2023 12:00 PM EDT Patient will call back to confirm or change appointment. Will check with daughter and sister for transportation help. Prefers [place] location with Mercedes. * Telephone Encounter - Radha Buchanan - 10/30/2023 11:33 AM EDT Images from the original note were not included. Dilcia Pearson MD Othman, Amal; Shelly Briones MA Can we bring her in for visit with Mercedes (here) or Morenita Chavis at [facility] - earliest available(not urgent) Thx C documented in this encounterGreene Memorial Hospital06-18-2024 Telephone encounter Note * Telephone Encounter - Radha Buchanan - 10/30/2023 11:33 AM EDT Images from the original note were not included. Dilcia Pearson MD Othman, Amal; Shelly Briones MA Can we bring her in for visit with Mercedes (here) or Morenita or Palm[place] at [facility] - earliest available(not urgent) Thx C [facility]06-05-2024 Telephone encounter Note* Telephone Encounter - Anni Herrera LPN - 10/17/2023 11:20 AM EDT Spoke with pt and information listed below given. Pt verbalizes understanding. Anni Herrera LPN [facility]06-05-2024 Miscellaneous Notes* Telephone Encounter - Anni Herrera [...] stable. Take careRupali APRN.CNP documented in this encounterGreene Memorial Hospital06-05-2024 Telephone encounter Note * Telephone Encounter - Kelsey Costa LPN - 10/17/2023 10:19 AM EDT Message left to return call. [facility] Work Phone: 1(317) 255-192306-05-2024 Telephone encounter Note* Telephone Encounter - Rupali Nascimento APRN.CNP - 10/17/2023 9:38 AM EDT Please call patient and let her know that lab work looks good. Uric acid level was elevated as we suspected d/t gout flare up. Continue with regimen as discussed. Kidney function is normal and stable. Take care, Rupali Nascimento APRN.MEDICAL DEVICE SALES [facility]06-03-2024 Telephone encounter Note* Telephone Encounter - Rupali Nascimento APRN.CNP - 10/15/2023 12:18 PM EDT Noted. Just saw patient in office and agree with below. Trial of prednisone burst x 4 days and continue with compression stockings was the recommendation. Thank you, Rupali Nascimento APRN.MEDICAL DEVICE SALES [facility]06-03-2024 Miscellaneous Notes* Telephone Encounter - Rupali Nascimento [...] pain, rash, fever, numbness Protocols used: Toe Wuvw-[id number]-AL documented in this encounterGreene Memorial Hospital06-03-2024 Instructions* Patient Instructions* Rupali Nascimento APRN.MEDICAL DEVICE SALES - 10/15/2023 11:47 AM EDT .az documented in this encounterGreene Memorial Hospital06-03-2024 History of Present illness Narrative* Rupali Nascimento [...] on chronic systolic CHF (congestive heart failure) ([facility]) 05/03/2020 Aspiration pneumonia ([facility]) 05/30/2020 Chest pain 05/03/2020 Chest pressure 01/23/2013 Chronic diastolic congestive heart failure ([facility]) 02/14/2021 Clostridium difficile diarrhea 09/28/2020 Complete uterovaginal prolapse Cystocele, midline Essential hypertension 06/14/2020 Homozygous Factor V Leiden mutation ([facility]) 05/03/2020 Hypothyroidism IBS (irritable bowel syndrome) 01/23/2013 [...] Patient agreeable to treatment plan. Rupali Correa APRN.MEDICAL DEVICE SALES [address] [place] [address] documented in this encounterGreene Memorial Hospital06-03-2024 Telephone encounter Note * Telephone Encounter - Jyoti Josue RN - 10/15/2023 11:09 AM EDT Received TE back today and called patient with update. Patient scheduled with PCP office previously. Patient wanting to have PCP check to make sure she doesn't have gout. Dr. Del Cid is out this week. Jyoti Josue RN [facility]05-30-2024 Telephone encounter Note* Telephone Encounter - Jyoti [...] pain, rash, fever, numbness Protocols used: Toe Gqes-PBPDP-EG [facility]05-30-2024 Telephone encounter Note* Telephone Encounter - Sridevi [...] 10/31/2023 Please advise. Thank you. Sridevi Leyva. [facility]05-30-2024 Miscellaneous Notes* Telephone Encounter - Sridevi Leyva [...] Thank you. Sridevi Leyva. documented in this encounterGreene Memorial Hospital05-21-2024 History of Present illness Narrative* Pili Wells MD - 10/02/2023 4:00 PM EDT [facility] [place] Department of Cardiovascular Medicine TELEPHONE VISIT (audio [...] visit. Either the patient or their legal apprenticeship representative has been informed of the risks and benefits of -- and alternatives to -- treatment through a remote evaluation andconsents to proceed with the evaluation remotely. Sandra Schmitz has consented to this telephone encounter. Persons Present: patient Chief Complaint/Reason: Follow up HPI: Sandra Schmitz is a 78 year old female with a medical history that includes non-ischemic CM, HTN, Hypothyroidism, LBBB s/p ENERGY AUDITOR-D who is referred to me for heart failure management. Sandra Schmitz was initially diagnosed with non-ischemic CM ~ 4 yrs ago and was doing well on losartan and metoprolol. She had progressive sxs of dyspnea on exertion, therefore she was started on entresto and farxiga and her sxs persisted and she was admitted locally in [place] and then transferredto for ENERGY AUDITOR consideration. Interval History: Sandra Schmitz was last [...] LVEF 40%, LVEdd 4.8cm. LBBB: chronic. S/p ENERGY AUDITOR 07/2023 Non-obstructive CAD: stable, ischemic testing recently with no ischemia or infarction. 06/2023 Nuc SPECT: no ischemia or infarction. 10/2021 Cath: mod LAD, D1 prox 40%, mild RCA disease dominant, EF 35%. Hx of HTN: BP have been stable Data Reviewed: Device interrogation (09/19/23) OTHER DIAGNOSTICS: RA pacing <0.1%. total V pacing 97.9%. Adaptive ENERGY AUDITOR shows BiV pacing 6.8%, LV only pacing 93.2%. Assessment: GDMT: - BB: toprol XL 12.5mg daily - ACEI/ARB/ARNI: losartan 25mg daily - MRA: no - SGLT2: unable to tolerate it - Vasodilators: no - Device: ENERGY AUDITOR - Cardiomems: no - Other: lasix 20mg [...] reviewed Cr: 0.84, K 3.9. Echocardiogram in [place] next month and following with Dr. Castro. 2. HTN: BP well controlled currently. 3. LBBB s/p ENERGY AUDITOR: Will send message to Dr. Wellington given [...] Wells MD Advanced Heart Failure and Transplant [facility] [place] [id number] Appointment: [phone] documented in this encounterGreene Memorial Hospital05-20-2024 Instructions* Patient Instructions* Alejandrina Harvey APRN.MEDICAL DEVICE SALES - 10/01/2023 12:41 PM EDT Take the Mucinex twice daily for 14 days. Start the Zpak today. Use the tessalon perles for your cough if they work. Get in at least 60-80oz of water daily. Ok for Tylenol/ibuprofen if necessary. Let me know in the next week if you're not improving. documented in this encounterGreene Memorial Hospital05-20-2024 History of Present illness Narrative* Alejandrina Harvey [...] on chronic systolic CHF (congestive heart failure) ([facility]) 05/03/2020 Aspiration pneumonia ([facility]) 05/30/2020 Chest pain 05/03/2020 Chest pressure 01/23/2013 Chronic diastolic congestive heart failure ([facility]) 02/14/2021 Clostridium difficile diarrhea 09/28/2020 Complete uterovaginal prolapse Cystocele, midline Essential hypertension 06/14/2020 Homozygous Factor V Leiden mutation ([facility]) 05/03/2020 Hypothyroidism IBS (irritable bowel syndrome) 01/23/2013 [...] HR Alejandrina Harvey APRN.TIM documented in this encounterGreene Memorial Hospital05-20-2024 Telephone encounter Note * Telephone Encounter - Margarita Villalba LPN - 10/01/2023 10:17 AM EDT Patient notified of results and provider's instructions. Patient verbalizes understanding. Margarita Villalba LPN [facility] Work Phone: 1(156) 260-900605-20-2024 Miscellaneous Notes* Telephone Encounter - Margarita Villalba [...] shoes Oliverio Mata DPM documented in this encounterGreene Memorial Hospital05-19-2024 Telephone encounter Note * Telephone Encounter - Oliverio Mata - 09/30/2023 8:03 AM EDT Please call patient to inform her that xrays do not show any stress fracture. Continue with good supportive shoes and/or insert in shoes Oliverio Mata DPM [facility] Work Phone: 1(252) 803-268205-17-2024 NoteMULTI CHAMBER ICD REMOTE EVALUATION: PRESENTING EGM: /LVP BATTERY STATUS: Estimated time remaining to YOLI is 11.7 years COUNTERS SINCE: 08/07/23 ATRIAL ARRHYTHMIAS: There have been no atrial detections. VENTRICULAR ARRHYTHMIAS: There have been no ventricular detections. LEAD MEASUREMENTS: Sensing is appropriate. Review of the lead impedance trends are normal. OTHER DIAGNOSTICS: RA pacing <0.1%. total V pacing 97.9%. Adaptive ENERGY AUDITOR shows BiV pacing 6.8%, LV only pacing 93.2%. FOLLOW UP: Continue 3 month remote transmissions and yearly in-clinic interrogations. Amy Louis RN NOTE TO PROVIDERS: CARD Flowsheets contain detailed device programming and testing data. Paceart/Interrogation PDF can be found under CARDIAC DATA AND REPORT, Scanned Documents section.[id number] Telephone encounter Note* Telephone Encounter - Thuy [...] Dr. Wells 10/01 carlito. Thuy Aguirre APRN.CNP [facility]05-14-2024 Miscellaneous Notes* Telephone Encounter - Thuy Aguirre [...] Thuy Aguirre APRN.CNP documented in this encounterCleveland [id number] History of Present illness Narrative* Nuria Whitten [...] PATIENT PRESENTS WITH AN IMPLANTABLE OR ATTACHED TIME ANALYSIS CLERK: No RADIOLOGY DEPARTMENT: General X-ray: Exam(s) Completed: Lower Extremity X- Ray(s): Foot, Left PERIPHERAL IV DATA: Not applicable SIGNED BY: RT Daily(R) September 24, 2023 11:01 AM documented in this encounterGreene [facility] History of Present illness Narrative* Oliveiro Mata - 09/24/2023 10:45 AM EDT Initial [...] on chronic systolic CHF (congestive heart failure) ([facility]) 05/03/2020 Aspiration pneumonia ([facility]) 05/30/2020 Chest pain 05/03/2020 Chest pressure 01/23/2013 Chronic diastolic congestive heart failure ([facility]) 02/14/2021 Clostridium difficile diarrhea 09/28/2020 Complete uterovaginal prolapse Cystocele, midline Essential hypertension 06/14/2020 Homozygous Factor V Leiden mutation ([facility]) 05/03/2020 Hypothyroidism IBS (irritable bowel syndrome) 01/23/2013 [...] cardiology Oliverio Mata DPM Podiatry [address] [facility] [address] Dept: [phone] Dept * Sincere Begrer RN - 09/24/2023 10:21 AM EDT AMB [...] is in cardiac rehab where she walks [facility], started that on 08/31/23 three times a week. documented in this encounterGreene [facility]05-08-[facility]24 Telephone encounter Note * Telephone Encounter - Ira Welch RN - 09/19/2023 5:43 PM EDT Spoke with patient and talked her through sending remote transmission. Pt states that she feels okay other than mild discomfort, denies any shortness of breath, internal chest pain or feeling unwell. Ira Welch RN [facility]05-08[facility] Miscellaneous Notes* Telephone Encounter - Ira Welch [...] and she asks if that is the [place] thing that sits on the table and [...] was connected that she should contact her internet marketing intern. Please review. JOHN Rowe documented in this encounterGreene [facility] Hospital05-08-[facility]24 Telephone encounter Note * Telephone Encounter - [...] and she asks if that is the [place] thing that sits on the table and turns green. She states she has never had to send one before and isn't sure how to do it so someone will need to walk her through it. I told her to watch for our call. [facility]05-07[facility] Telephone encounter Note* Telephone Encounter - Sanjeev Carpio RN - 09/18/2023 8:22 AM EDT Phoned patient and given provider's message below with verbalized understanding. Patient agreeable and will call back to schedule appt. [facility]05-07-[facility] Miscellaneous Notes* Telephone Encounter - Sanjeev Carpio [...] schedule with for further assessment. Alejandrina Harvey APRN.MEDICAL DEVICE SALES * Telephone Encounter - Sanjeev Carpio RN - 09/17/2023 1:11 PM EDT Patient asking provider to review and advise on xray left foot results, and asking if she should schedule appt with Dr. Mata, as the left foot is sill swollen some today. documented in this encounterGreene [facility] Hospital05-07-2024 Telephone encounter Note * Telephone Encounter - Alejandrina Harvey APRN.CNP - 09/18/2023 6:57 AM EDT Her foot xray looks stable, nothing acutely concerning. Yes, please assist her to schedule with for further assessment. Alejandrina Harvey APRN.TIM [facility]05-06-[facility] Telephone encounter Note* Telephone Encounter - Dianna [...] out to EP doctor Dr. Wellington too. [facility]05-[facility] Miscellaneous Notes* Telephone Encounter - Dianna Merino [...] doctor Dr. Wellington too. documented in this encounterGreene [facility] Hospital05-06-2024 Telephone encounter Note * Telephone Encounter - Concetta Prado PSS - 09/17/2023 1:38 PM EDT Patient stated that while she bent over to weed she felt her pacemaker move forward. Pt had a cardio therapy appt today 09/17/23 and they stated everything was connected that she should contact her internet marketing intern. Please review. JOHN Rowe [facility]05-06-[facility] Telephone encounter Note* Telephone Encounter - Sanjeev Carpio RN - 09/17/2023 1:11 PM EDT Patient asking provider to review and advise on xray left foot results, and asking if she should schedule appt with Dr. Mata, as the left foot is sill swollen some today. [facility]05-02[facility] History of Present illness Narrative* Nuria Whitten [...] PATIENT PRESENTS WITH AN IMPLANTABLE OR ATTACHED TIME ANALYSIS CLERK: No RADIOLOGY DEPARTMENT: General X-ray: Exam(s) Completed: Lower Extremity X- Ray(s): Foot, Left PERIPHERAL IV DATA: Not applicable SIGNED BY: RT Daily(R) September 13, 2023 11:37 AM documented in this encounterGreene [facility] Hospital05-02-2024 History of Present illness Narrative* Alejandrina Harvey [...] OMEPRAZOLE 20 MG CAPSULE,DELAYED RELEASE Alejandrina Harvey APRN.MEDICAL DEVICE SALES Currently: Top of left foot just near the base of her first 2 toes is painful and swollen. Doing therapy. Has hx of pin in her big toe and fusion to second toe. Thinks she may have stepped wrong-started about 1.5 weeks ago. Hurts to walk and now hurting into the ball of her foot. M-W-F at 10:00 therapy/cardiac rehab at [facility]. Past medical history, appointments, medications, allergies reviewed. Previous Medical History PAST MEDICAL HISTORY Diagnosis Date Acute acalculous cholecystitis 05/30/2020 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 09/22/2020 Acute on chronic systolic CHF (congestive heart failure) ([facility]) 05/03/2020 Aspiration pneumonia ([facility]) 05/30/2020 Chest pain 05/03/2020 Chest pressure 01/23/2013 Chronic diastolic congestive heart failure ([facility]) 02/14/2021 Clostridium difficile diarrhea 09/28/2020 Complete uterovaginal prolapse Cystocele, midline Essential hypertension 06/14/2020 Homozygous Factor V Leiden mutation ([facility]) 05/03/2020 Hypothyroidism IBS (irritable bowel syndrome) 01/23/2013 [...] LEFT Alejandrina Harvey APRN.TIM documented in this encounterGreene [facility] Hospital04-24-2024 Instructions* Patient Instructions* Thuy Aguirre APRN.CNP - [...] Jardiance. 3. Fasting blood work at [facility] lab in 2 weeks to check kidney [...] appointment with Dr. Oneill documented in this encounterGreene Memorial Hospital04-24-2024 History of Present illness Narrative* Thuy Aguirre APRN.CNP - 09/05/2023 11:00 AM EDT Images from the original note were not included. [facility] [place] [facility] Department of Cardiovascular Medicine SECTION OF CLINICAL CARDIOLOGY OUTPATIENT VISIT DATE September 05, 2023 OUTPATIENT VISIT TYPE ESTABLISHED PRIMARY CARE PHYSICIAN: Mandeep Houser [address] [place] [address] CHIEF COMPLAINT: Follow up HISTORY OF PRESENT ILLNESS: Ms. Schmitz is a 78 year old female with history of chronic HFrEF, NICM, LBBB, s/p ENERGY AUDITOR-D (07/2023), nonobstructive CAD, valvular insufficiency, HTN, hypothyroidism, and factor V Leiden mutation who presents today for a cardiovascular medicine follow-up visit. She has historically received her general cardiology care in [place] with Dr. Oneill however after recent admission to [place] 06/2023 she is looking to establish her [...] She is participating in cardiac rehab in [facility]. She isweighing herself daily and weights have [...] on chronic systolic CHF (congestive heart failure) ([facility]) 05/03/2020 Aspiration pneumonia ([facility]) 05/30/2020 Chest pain 05/03/2020 Chest pressure 01/23/2013 Chronic diastolic congestive heart failure ([facility]) 02/14/2021 Clostridium difficile diarrhea 09/28/2020 Complete uterovaginal prolapse Cystocele, midline Essential hypertension 06/14/2020 Homozygous Factor V Leiden mutation ([facility]) 05/03/2020 Hypothyroidism IBS (irritable bowel syndrome) 01/23/2013 [...] 09/11) - Repeat echo 3 months post ENERGY AUDITOR-D (~10/2023) - Jardiance started 08/31 and Lasix discontinued - BMP 2 weeks after starting Jardiance - Consider increase Losartan dose pending Jardiance response Nonischemic cardiomyopathy - [facility] 10/2021: mod LAD, D1 prox 40%, mild RCA disease - GDMT: - s/p ENERGY AUDITOR-D 07/16/23 at [facility] - Follows with advanced heart failure, - Follows with EP, Dr. Wellington Left bundle branch block - s/p ENERGY AUDITOR-D 07/16/23 at [facility] - Follows with EP, Dr. Wellington Nonobstructive coronary artery disease - [facility] 10/2021: mod LAD, D1 prox [...] October to assess LVEF 3 months s/p ENERGY AUDITOR-D. Her most recent cholesterol profile is not [...] Cardiology Nurse Practitioner Section of Regional Cardiology [facility] Dept of Cardiovascular Medicine [facility] [place] [address] Office Office This note was partially generated using [employer] voice recognition system and may contain errors related to that system including grammar, punctuation, spelling, and words that may be inappropriate documented in this encounterGreene Memorial Hospital04-15-2024 Miscellaneous Notes* Telephone Encounter - Vinita Fernandez [...] as she states she recently saw her internet marketing intern and was put on Jardiance. She is calling to see if there is any problem to starting the Jardiance and taking the Fluconozole? Please call pt back after provider review. documented in this encounterGreene Memorial Hospital04-12-2024 Miscellaneous Notes* Telephone Encounter - Helen Ramachandran [...] lasix is she taking? documented in this encounterGreene [facility] Hospital04-10-2024 Instructions* Patient Instructions* Alejandrina Harvey APRN.TIM - 08/22/2023 11:16 AM EDT Take the prednisone (steroid) if needed for your gout pain. Start taking the omeprazole for your silent reflux, take this at night if you're able. Take the diflucan for yeast infection today. You can repeat it in 3 days if necessary. Your urine testing looks completely normal. documented in this encounterGreene Memorial Hospital04-10-2024 History of Present illness Narrative* Alejandrina Harvey [...] on chronic systolic CHF (congestive heart failure) ([facility]) 05/03/2020 Aspiration pneumonia ([facility]) 05/30/2020 Chest pain 05/03/2020 Chest pressure 01/23/2013 Chronic diastolic congestive heart failure ([facility]) 02/14/2021 Clostridium difficile diarrhea 09/28/2020 Complete uterovaginal prolapse Cystocele, midline Essential hypertension 06/14/2020 Homozygous Factor V Leiden mutation ([facility]) 05/03/2020 Hypothyroidism IBS (irritable bowel syndrome) 01/23/2013 [...] OMEPRAZOLE 20 MG CAPSULE,DELAYED RELEASE Alejandrina Harvey APRN.MEDICAL DEVICE SALES documented in this encounterGreene [facility] Hospital03-26-2024 History of Present illness Narrative* Dilcia Pearson MD - 08/07/2023 3:22 PM EDT Images from the original note were not included. [facility] [place] [facility] Department of Cardiovascular Medicine SECTION OF CARDIAC PACING and ELECTROPHYSIOLOGY OUTPATIENT VISIT DATE August 07, 2023 OUTPATIENT VISIT TYPE ESTABLISHED PRIMARY CARE PHYSICIAN: Mandeep Houser [address] [place] [address] REFERRING PHYSICIAN: No referring provider defined for this encounter. CHIEF COMPLAINT: Left bundle branch block, nonischemic cardiomyopathy, status post ENERGY AUDITOR-D HISTORY OF PRESENT ILLNESS: Ms. Schmitz is [...] shows normal lead parametersand effective delivery of ENERGY AUDITOR. She reports notable improvement in symptoms. We will monitor her device remotely every 3 months Follow-up with EP team on an annual basis CONTACT INFORMATION: Dilcia Bonilla MD documented in this encounterGreene Memorial Hospital03-25-2024 Miscellaneous Notes* Telephone Encounter - Helen Ramachandran RN - 08/06/2023 3:41 PM EDT Spoke with pt to confirm appt with Dr. Wells tomorrow. documented in this encounterGreene Memorial Hospital03-16-2024 Miscellaneous Notes* Telephone Encounter - Palmira Samuels [...] device related. Please advise. documented in this encounterGreene Memorial Hospital03-13-2024 Miscellaneous Notes* Telephone Encounter - Mane Pennington [...] you. Mane Pennington LPN. documented in this encounterGreene Memorial Hospital03-13-2024 Miscellaneous Notes* Telephone Encounter - Mane Pennington LPN - 07/25/2023 2:06 PM EDT Phoned patient and went over results, notes from Dr Houser with understanding. * Telephone Encounter - Mandeep Houser DO - 07/25/2023 1:49 PM EDT Please let patient know that overall her labs are stable. No changes at this time Mandeep Houser DO documented in this encounterGreene Memorial Hospital03-12-2024 History of Present illness Narrative* Mandeep Houser [...] beta-lorenzo. Unable to schedule pacer defibrillator and [place] and contacted [facility] in August to have Dr. Wellington [...] pacer defibrillator plan to be done at [place] Disposition: Transfer to [place] on hospital medicine with consult to Dr. [...] 24 Has a follow up scheduled with Floor Layer Helper / Cardiac surgeon in the next 2 [...] and fatigue is improving. Follow up with Floor Layer Helper/surgeon Recheck labs. She is taking the metoprolol [...] and fatigue is improving. Follow up with Floor Layer Helper/surgeon Recheck labs. She is taking the metoprolol medication - COMP METABOLIC PANEL - CBC + DIFF 5. Acute hypoxic respiratory failure (HCC) - ICD9: 518.81, ICD10: J96.01 - recently hospitalized and medications adjusted down and off Entresto. Had biventricular pacemakerand defibrillator placed and fatigue is improving. Follow up with Floor Layer Helper/surgeon Recheck labs. She is taking the metoprolol medication - COMP METABOLIC PANEL - CBC + DIFF 6. Chronic bronchitis, unspecified chronic bronchitis type (HCC) - ICD9: 491.9, ICD10: J42 - recently hospitalized and medications adjusted down and off Entresto. Had biventricular pacemakerand defibrillator placed and fatigue is improving. Follow up with Floor Layer Helper/surgeon Recheck labs. She is taking the metoprolol medication - COMP METABOLIC PANEL - CBC + DIFF 7. Atrial fibrillation, unspecified type (HCC) - ICD9: 427.31, ICD10: I48.91 - recently hospitalized and medications adjusted down and off Entresto. Had biventricular pacemakerand defibrillator placed and fatigue is improving. Follow up with Floor Layer Helper/surgeon Recheck labs. She is taking the metoprolol medication - COMP METABOLIC PANEL - CBC + DIFF 8. SVT (supraventricular tachycardia) (HCC) - ICD9: 427.89, ICD10: I47.10 - recently hospitalized and medications adjusted down and off Entresto. Had biventricular pacemakerand defibrillator placed and fatigue is improving. Follow up with Floor Layer Helper/surgeon Recheck labs. She is taking the metoprolol [...] with the plan. Mandeep Houser DO [address] [place] [address] documented in this encounterGreene Memorial Hospital03-08-2024 History of Present illness Narrative* Fitz Mcqueen RN - 07/20/2023 1:09 PM EST TCM Home Visit Referral Source of Stratification: [facility] Hospital Admission Status: Discharged Readmission Risk [...] Dept Phone 07/24/2023 1:40 PM MANDEEP HOUSER [facility] [phone] 08/07/2023 2:30 PM DEVICE CLINIC CARD EPS EDENILSON Reed [phone] 08/07/2023 3:00 PM KITTY MUNOZTODILCIAWestVal[place] [phone] 08/07/2023 3:30 PM PILI [place] [phone] SUMMARY: Discharge Network Status: In-Network Discharge Pt discharged from [place] on 07/18/23. Admitted for: Bradycardia Contact made with patient: Yes Hi my name is Fitz Mcqueen RN and I am calling [facility] on behalf of your PCP, Mandeep Houser, [...] to speak with a social work steam blocker to help give you support for any [...] I will send your request to a spares scheduler who will contact and assist you with [...] No Fitz Mcqueen RN documented in this encounterGreene Memorial Hospital03-08-2024 Miscellaneous Notes* Telephone Encounter - Cathy Munguia - 07/20/2023 10:17 AM EST PATIENT INFORMATION Record ID: [id number] Patient Name: [facility]: [place]: [facility] Attending: Angelica Silva Center: Hospital Medicine INSTRUCTIONS SN to remind patient of next upcoming appointment date, time, location All Clear SURVEY INFORMATION Medical/Nurse Power Press Operator: Cathy Prakahs 1. Your discharge instructions are important in [...] symptoms? (Standard Question) No documented in this encounterGreene Memorial Hospital03-05-2024 NoteHNO ID: [id number] Author: ANGELICA SILVA MD Service: Hospital Medicine Author Type: Physician Type: Progress Notes Filed: 07/18/2023 09:37 Note Text: DEPARTMENT OF HOSPITAL MEDICINE PROGRESS NOTE SERVICE DATE: 07/17/2023 SERVICE TIME: 5:22 PM Hospital Medicine/Primary Attending: Angelica Silva MD NIGHT AND WEEKEND COVERAGE: ZEELAND COVERAGE:Team 5 Subjective INTERVAL HPI: The patient [...] at home that made her come to [facility] Patient reports when she was off the [...] and Airways Line Duration Peripheral 07/15/23 1115 [facility] Short Right Forearm 20 Gauge 2 days Peripheral 07/16/23 1718 [facility] Left Wrist 20 Gauge 1 day DATA: Diagnostic tests reviewed for today's visit: Most recent labs and imaging results. 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 Medication and [...] July 17, 2023 TIME: 5:22 PM etx [id number] Dickinson [id number] NoteHNO ID: [id number] Author: ANGELICA SILVA MD Service: Hospital Medicine [...] levels are clinically Insignificant Other, please specify [facility] [id number] Miscellaneous Notes* Telephone Encounter - Morenita Hill APRN.CNP - 07/17/2023 11:04 AM EST Please call patient to arrange for appointment with EP ROSEMARY or Dr. Wellington with device check immediately prior at P office. If we could coordinate this for same day she is seeing Dr. Wells, that wouldbe great, in the next ~2 weeks. Thank you! Morenita Hill APRN.CNP documented in this encounterGreene Memorial Hospital03-04-2024 NoteHNO ID: [id number] Author: GRISELDA SALMERON MD Service: Anesthesiology Author [...] Schmitz DATE: 2023 TIME: 5:03 PM CSN: [id number] NoteHNO ID: [id number] Author: KEKE DENG APRN.CRNA Service: ? Author Type: Nurse Community Placement Worker Type: Anesthesia Procedure Notes Filed: 2023 14:19 Note Text: ANESTHESIOLOGY PROCEDURE NOTE Airway General Information Procedure Start Time/Medication Administration: 2023 1:49 PM Patient location during procedure: OR Timeout Performed Pre-procedure: timeout performed Consent Obtained: Yes Patient identity confirmed: arm band and patient Staffing STONE PAVER: Keke Deng APRN.CRNA Indications and Patient Condition [...] Schmitz DATE: 2023 TIME: 2:19 PM CSN: [id number] NoteHNO ID: [id number] Author: ANGELICA SILVA MD Service: Hospital Medicine Author Type: Physician Type: Progress Notes Filed: 2023 13:44 Note Text: DEPARTMENT OF HOSPITAL MEDICINE PROGRESS NOTE SERVICE DATE: 2023 SERVICE TIME: 1:41 PM Hospital Medicine/Primary Attending: Angelica Silva MD NIGHT AND WEEKEND COVERAGE: ZEELAND COVERAGE:Team 5 Subjective INTERVAL HPI: Patient is [...] and Airways Line Duration Peripheral 07/15/23 1115 [facility] Short Right Forearm 20 Gauge 1 day DATA: Diagnostic tests reviewed for today's visit: Most recent labs and imaging results. 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 chronic LBBB 77 year old female, who presented to [place] ER due to concerns for chest pressure with associated postural lightheadedness and dyspnea She was subsequently admitted to [place] She had lexiscan stress test which was [...] IV Lasix And she was transferred to [facility] for consideration of inpatient ENERGY AUDITOR implantation given her left bundle branch block Patient currently reports significant improvement in chest pain and shortness of breath compared to admission X-ray of the chest no acute cardiopulmonary process proBNP improved Seen by EP appreciate input PT for ENERGY AUDITOR placement today Plan Continue IV Lasix ( Switch to PO soon) Monitor volume status Consulted with Dr. Wells, advanced heart failure specialist, ENERGY AUDITOR today Started on lower dose Entresto 24-26 [...] Schmitz DATE: 2023 TIME: 1:41 PM etx [id number] Dickinson [id number] NoteHNO ID: [id number] Author: ANGELICA SILVA MD Service: Hospital Medicine Author Type: Physician Type: Progress Notes Filed: 07/15/2023 15:41 Note Text: DEPARTMENT OF HOSPITAL MEDICINE PROGRESS NOTE SERVICE DATE: 07/15/2023 SERVICE TIME: 3:33 PM Hospital Medicine/Primary Attending: Angelica Silva MD NIGHT AND WEEKEND COVERAGE: ZEELAND COVERAGE:Team 5 Subjective INTERVAL HPI: Patient is [...] and Airways Line Duration Peripheral 07/15/23 1115 [facility] Short Right Forearm 20 Gauge <1 day DATA: Diagnostic tests reviewed for today's visit: Most recent labs and imaging results. 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 EP tentatively planning for ENERGY AUDITOR Sunday Started on lower dose Entresto 24-26 [...] July 15, 2023 TIME: 3:33 PM etx [id number] Dickinson [id number] NoteHNO ID: [id number] Author: ANGELICA SILVA MD Service: Hospital Medicine Author Type: Physician Type: Progress Notes Filed: 07/14/2023 20:15 Note Text: DEPARTMENT OF HOSPITAL MEDICINE PROGRESS NOTE SERVICE DATE: 07/14/2023 SERVICE TIME: 8:01 PM Hospital Medicine/Primary Attending: Angelica Silva MD NIGHT AND WEEKEND COVERAGE: ZEELAND COVERAGE:Team 5 Subjective INTERVAL HPI: patient is [...] 77 year old female, who presented to [place] ER due to concerns for chest pressure with associated postural lightheadedness and dyspnea She was subsequently admitted to [place] She had lexiscan stress test which was [...] IV Lasix And she was transferred to [facility] for consideration of inpatient ENERGY AUDITOR implantation given her left bundle branch block Patient currently reports significant improvement in chest pain and shortness of breath compared to admission X-ray of the chest no acute cardiopulmonary process proBNP improved Seen by EP appreciate input Plan Continue IV Lasix Monitor volume status Consult with Dr. Wells, advanced heart failure specialist, on Sunday morning. EP tentatively planning for ENERGY AUDITOR Sunday Started on lower dose Entresto 24-26 [...] July 14, 2023 TIME: 8:01 PM etx [id number] Dickinson HospitalDxuxntzq72-03-5622 NoteHNO ID: [id number] Author: ESTELITA LAMB APRN.CNP Service: Cardiovascular Medicine Author Type: Nurse Practitioner Type: Progress Notes Filed: 07/13/2023 09:28 Note Text: [facility] [place] [facility] Department of Cardiovascular Medicine SECTION OF [facility] Progress Note Elements of this note, including [...] DO Consulting Physician: Remington Cai MD Primary Floor Layer Helper: Dr. Oneill SERVICE DATE: July 13, 2023 [...] with SOB, chest pain and lightheadedness - [facility] 10/2021: Moderate LAD and D1 [...] - QRS = 176 mx - pending ENERGY AUDITOR-D implant Palpitations - present JIG WORKER - zio 06/2023: Patient had a min [...] noted on admission - call placed to [facility] EP service to discuss considerations for expedited ENERGY AUDITOR-D CAD - chest pain on admission has resolved - [facility] 10/2021: Moderate LAD and D1 [...] last evening who agrees with transfer to [facility] for refractory HF despite medical therapy. Patient pending transfer to [facility] via medicine team with consults to EP and advanced heart failure. Patient aware of plan and agreeable. Case discussed with Dr. Lobo and nursing staff. Estelita Lamb APRN.MEDICAL DEVICE SALES 07/13/2023 9:21 AM PAST MEDICAL HISTORY PAST [...] IN 2009 EGD 11/08/2012 (more content not included)...[facility] [id number] Miscellaneous Notes* Telephone Encounter - Rahul Bee MD - 07/13/2023 7:23 AM EST Hospital Medicine Transfer Received page for transfer request from [facility] to [facility]: Sandra Schmitz is 77 year old female who presented with non ischemic decompensated heart failure EF 26%. Suspected runs of tachycardia of unclear origin. Being transferred for possible ENERGY AUDITOR. Cannot tolerate betablocker. Currently SBP in 100s. No ICD before. Mild CAD. Reason for transfer: Possible ENERGY AUDITOR placement Accepted to hospital medicine service at 7:26PM Rahul Bee MD 7:23 AM documented in this encounterGreene Memorial Hospital02-29-2024 NoteHNO ID: [id number] Author: ESTELITA LAMB APRN.MEDICAL DEVICE SALES Service: Cardiovascular Medicine Author Type: Nurse Practitioner Type: Progress Notes Filed: 07/12/2023 18:56 Note Text: Heart [facility] Vascular [place] Eduardo Department of Cardiovascular Medicine SECTION OF [facility] CARDIOLOGY/[facility] Progress Note Elements of this note, including [...] DO Consulting Physician: Remington Cai MD Primary Floor Layer Helper: Dr. Oneill SERVICE DATE: July 12, 2023 [...] with SOB, chest pain and lightheadedness - [facility] 10/2021: Moderate LAD and D1 [...] 0.9 kg since admission LBBB - pending ENERGY AUDITOR-D implant Palpitations - present JIG WORKER - zio 06/2023: Patient had a min [...] noted on admission - call placed to [facility] EP service to discuss considerations for expedited ENERGY AUDITOR-D CAD - chest pain on admission has resolved - [facility] 10/2021: Moderate LAD and D1 [...] Dr. Castro and nursing staff. Estelita Lamb APRN.MEDICAL DEVICE SALES 07/12/2023 1:26 PM ADDENDUM: Echo today shows EF 26% Discussed patient with Dr. Wellington ant [facility] who is agreeable for patient transfer for refractory heart failure despite medications. We will start transfer process via medicine team with consult to EP and advanced heart failure at [place]. Consideration for ENERGY AUDITOR-D implant per Dr. Wellington and EP team. Estelita Lamb APRN.MEDICAL DEVICE SALES 07/12/23 6:55 PM PAST MEDICAL HISTORY PAST MEDICAL HISTORY Diagnosis Date Acute acalculous cholecystitis 05/30/2020 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 09/22/2020 Acute on chronic systolic CHF (congestive heart failure) (HCC) 05/03/2020 Aspiration pneumonia ([facility]) 05/30/2020 Chest pain 05/03/2020 Chest pressure 01/23/2013 [...] UTERUS PAST SURGICAL HIST (more content not included)...[facility] [id number] Note HNO ID: [id number] Author: REMINGTON CAI MD Service: Hospital Medicine Author Type: Physician Type: Progress Notes Filed: 07/12/2023 10:40 Note Text: DEPARTMENT OF HOSPITAL MEDICINE PROGRESS NOTE SERVICE DATE: 07/12/2023 SERVICE TIME: 9:21 AM Hospital Medicine/Primary Attending: Remington Cai MD NIGHT AND WEEKEND COVERAGE: [place] COVERAGE: Nights: [phone], please page [place] [facility] Night coverage pager [phone]. Reason for Admission: Acute decompensated heart failure concern for ventricular tachycardia being the precipitating factor INTERVAL HPI: I called electrophysiology and they had no openings. Could page 2 [facility] sporting goods salesperson on-call Dr. Castro who will see if Dr. Wellington at [place] did not do the pacer defibrillator. My [...] fibrillation. 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 She is to be scheduled for pacer [...] needs diuresis. Dr. Virk (more content not included)...[facility] [id number] NoteHNO ID: [id number] Author: ESTELITA LAMB APRN.TIM Service: Cardiovascular Medicine Author Type: Nurse Practitioner Type: Plan of Care Filed: 07/11/2023 15:22 Note Text: Patient stress test reviewed. Shows no ischemia but low EF. Echo planned for tomorrow. Pending ENERGY AUDITOR-D as OP >>> Dr. Sams is facilitating discussion on timing of implant. Will follow. Estelita Lamb APRN.MEDICAL DEVICE SALES Cardiology Nurse Practitioner Section of Regional Cardiology [facility] Dept of Cardiovascular Medicine [facility] Heart [facility] V[facility] [place] [address] [address] Office Office Qzzoyx [id number] NoteHNO ID: [id number] Author: REMINGTON CAI MD Service: Hospital Medicine Author Type: Physician Type: Progress Notes Filed: 07/11/2023 14:17 Note Text: DEPARTMENT OF HOSPITAL MEDICINE PROGRESS NOTE SERVICE DATE: 07/11/2023 SERVICE TIME: 1:06 PM Hospital Medicine/Primary Attending: Remington Cai MD NIGHT AND WEEKEND COVERAGE: [place] [employer]: Nights: [phone], please page [place] [facility] Night coverage pager [phone]. Reason for Admission: Acute decompensated heart failure [...] beta-lorenzo held Nuclear stress test-see below Basket 5 examples message sent to concerning pacer defibrillator placement [...] fibrillation. 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 She is to be scheduled for pacer [...] Acute on chronic systolic (more content not included)...[facility] 06-12-2023 NoteHNO ID: [id number] Author: FLACA GREENFIELD MD Service: ? Author Type: Physician Type: Progress Notes Filed: 06/12/2023 16:02 Note Text: [facility] SECTION OF CARDIAC PACING and ELECTROPHYSIOLOGY OUTPATIENT VISIT DATE June 12, 2023 OUTPATIENT VISIT TYPE NEW PRIMARY CARE PHYSICIAN: Mandeep Houser [address] [place] [address] REFERRING PHYSICIAN: Santo Oneill MD. HISTORY OF PRESENT ILLNESS: 77-year-old female with history of nonischemic cardiomyopathy, severe LV systolic function, LVEF of 30% despite GDMT, LBBB with QRS of 170 ms, was referred for consideration of ENERGY AUDITOR-D system implantation for prevention of sudden cardiac [...] on chronic systolic CHF (congestive heart failure) ([facility]) 05/03/2020 Aspiration pneumonia ([facility]) 05/30/2020 Chest pain 05/03/2020 Chest pressure 01/23/2013 Chronic diastolic congestive heart failure ([facility]) 02/14/2021 Clostridium difficile diarrhea 09/28/2020 Complete uterovaginal prolapse Cystocele, midline Essential hypertension 06/14/2020 Homozygous Factor V Leiden mutation ([facility]) 05/03/2020 Hypothyroidism IBS (irritable bowel syndrome) 01/23/2013 [...] Arm Large Adult Physic (more content not included)...[facility] History of Present illness Narrative* Luzma [...] 17, 2023 1:31 PM documented in this encounterGreene Memorial Hospital12-14-2023 Miscellaneous Notes* Telephone Encounter - Bria Shah MA - 04/26/2023 2:37 PM EST Patient notified of results, verbalizes understanding of instructions. Bria Shah MA * Telephone Encounter - Mandeep Houser DO - 04/26/2023 2:24 PM EST Please inform patient that her mammogram is normal/negative. She will need routine screening mammogram in 1 year. Thanks CELIA Gamez documented in this encounterGreene Memorial Hospital12-12-2023 Miscellaneous Notes* Telephone Encounter - Vinita Harman - 04/24/2023 2:06 PM EST Patient is scheduled at on 05/28/[address] Angel Gaxiola. * Telephone Encounter - Mandeep Houser DO - 04/17/2023 4:59 PM EST Patient is supposed to be seen by Geodetic Survey Director / Cardiology per recommendations by Dr. Oneill. She is asking office if this is scheduled yet? Please clarify Mandeep Houser DO documented in this encounterGreene Memorial Hospital11-27-2023 History of Present illness Narrative* Santo Oneill MD - 04/09/2023 5:19 PM EST Images from the original note were not included. Santo Oneill MD Interventional Cardiology [address] [place] [address] Chief Complaint Patient presents with: Established Patient [...] to correct any errors. documented in this encounterGreene Memorial Hospital10-19-2023 Miscellaneous Notes* Telephone Encounter - Sanjeev Carpio [...] months Mandeep Houser DO documented in this encounterGreene Memorial Hospital08-30-2023 History of Present illness Narrative* Mandeep Houser [...] organize [facility] No fevers or chills. Present the last few weeksoff and on PAST MEDICAL HISTORY Diagnosis Date Acute acalculous cholecystitis 05/30/2020 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 09/22/2020 Acute on chronic systolic CHF (congestive heart failure) ([facility]) 05/03/2020 Aspiration pneumonia ([facility]) 05/30/2020 Chest pain 05/03/2020 Chest pressure 01/23/2013 Chronic diastolic congestive heart failure ([facility]) 02/14/2021 Clostridium difficile diarrhea 09/28/2020 Complete uterovaginal prolapse Cystocele, midline Essential hypertension 06/14/2020 Homozygous Factor V Leiden mutation ([facility]) 05/03/2020 Hypothyroidism IBS (irritable bowel syndrome) 01/23/2013 [...] plan. See patient instructions. Mandeep Houser DO [address] [place] [address] documented in this encounterGreene Memorial Hospital08-29-2023 Instructions* Patient Instructions* Mandeep Houser DO - 01/09/2023 1:53 PM EDT Decrease dose of thyroid medication to 88 mcg a day, new rx sent into [facility] Recheck labs in 1 month, these are ordered. Can be done non fasting If front of neck symptoms aren't better, I will order ultrasound. Let me konw documented in this encounterGreene Memorial Hospital08-29-2023 Miscellaneous Notes* Telephone Encounter - Sandra Malave [...] and advise. Sandra Wells documented in this encounterGreene Memorial Hospital08-17-2023 Miscellaneous Notes* Telephone Encounter - Rupali Nascimento [...] when able. Thank you. documented in this encounterGreene Memorial Hospital08-08-2023 Miscellaneous Notes* Telephone Encounter - Alejandrina Barnes LPN - 12/19/2022 8:59 AM EDT Patient notified. Verbalized understanding. * Telephone Encounter - Mandeep Houser DO - 12/19/2022 8:08 AM EDT Please inform patient that her CXR is normal Mandeep Houser DO documented in this encounterGreene Memorial Hospital08-03-2023 History of Present illness Narrative* Faye Aguirre [...] 14, 2022 10:38 AM documented in this encounterGreene Memorial Hospital06-19-2023 Miscellaneous Notes* Telephone Encounter - Leyla Ferreira RN - 10/30/2022 10:48 AM EDT Addendum completed by Dr. Mata and faxed to [employer]. * Telephone Encounter - Sincere Berger RN - 10/24/2022 1:25 PM EDT Received fax from [employer] requesting addendum to 08/[address]. [address] Testrakes desk. documented in this encounterGreene Memorial Hospital06-04-2023 Miscellaneous Notes* Telephone Encounter - Estelita Pinon [...] care provider or schedule a visit with [facility]. A test is not recommended to return to work/school when meeting the above criteria. Estelita Pinon APRN.CNP documented in this encounterGreene Memorial Hospital06-03-2023 History of Present illness Narrative* Shanell Cox [...] plan. Shanell Cox APRN.CNP documented in this encounterGreene Memorial Hospital05-31-2023 History of Present illness Narrative* Mandeep Houser [...] on chronic systolic CHF (congestive heart failure) ([facility]) 05/03/2020 Aspiration pneumonia ([facility]) 05/30/2020 Chest pain 05/03/2020 Chest pressure 01/23/2013 Chronic diastolic congestive heart failure ([facility]) 02/14/2021 Clostridium difficile diarrhea 09/28/2020 Complete uterovaginal prolapse Cystocele, midline Essential hypertension 06/14/2020 Homozygous Factor V Leiden mutation ([facility]) 05/03/2020 Hypothyroidism IBS (irritable bowel syndrome) 01/23/2013 [...] See patient instructions. Mandeep Houser DO [address] [place] [address] documented in this encounterGreene Memorial Hospital05-11-2023 Miscellaneous Notes* Telephone Encounter - Leyla Ferreira RN - 09/21/2022 2:51 PM EDT Refaxed forms to [employer]. * Telephone Encounter - Rachelle Stout LPN - 09/21/2022 1:38 PM EDT Shana varner called stating that fax sent only came thru as every other page and the whole fax was not received. Please refax paper work to [phone] Rachelle Stout LPN documented in this encounterGreene Memorial Hospital05-01-2023 Miscellaneous Notes* Telephone Encounter - Sincere Berger RN - 09/11/2022 11:44 AM EDT Received fax from [employer] for Orthosis order. Forms filled out and signed by Dr. Mata andfaxed back to [place] with office notes. Fax number: [phone] documented in this encounterGreene Memorial Hospital04-24-2023 History of Present illness Narrative* Dorinda Davidson, [...] 2022 TIME: 2:30 PM documented in this encounterGreene Memorial Hospital04-13-2023 History of Present illness Narrative* Mandeep Houser, [...] OMT in the past Has a [employer] nuclear monitoring technician in place currently Abdominal discomfort, fullness feeling and distension feeling, gassiness/intermittent nausea, hx ofcholecystectomy >1 year ago, no vomiting. Feels like she could at times. No blood in stool. Symptoms worsening over weeks time PAST MEDICAL HISTORY Diagnosis Date Acute acalculous cholecystitis 05/30/2020 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 09/22/2020 Acute on chronic systolic CHF (congestive heart failure) ([facility]) 05/03/2020 Aspiration pneumonia ([facility]) 05/30/2020 Chest pain 05/03/2020 Chest pressure 01/23/2013 Chronic diastolic congestive heart failure ([facility]) 02/14/2021 Clostridium difficile diarrhea 09/28/2020 Complete uterovaginal prolapse Cystocele, midline Essential hypertension 06/14/2020 Homozygous Factor V Leiden mutation ([facility]) 05/03/2020 Hypothyroidism IBS (irritable bowel syndrome) 01/23/2013 [...] with the plan. See patient instructions. Mandeep oHuser DO [address] [place] [address] documented in this encounterGreene Memorial Hospital04-03-2023 History of Present illness Narrative* Santo Oneill MD - 08/14/2022 11:58 AM EDT Images from the original note were not included. Santo Oneill MD Interventional Cardiology [facility] [address] [place], [place] [address] [phone] Chief Complaint Patient presents with: Established Patient [...] on chronic systolic CHF (congestive heart failure) ([facility]) 05/03/2020 Aspiration pneumonia ([facility]) 05/30/2020 Chest pain 05/03/2020 Chest pressure 01/23/2013 Chronic diastolic congestive heart failure ([facility]) 02/14/2021 Clostridium difficile diarrhea 09/28/2020 Complete uterovaginal prolapse Cystocele, midline Essential hypertension 06/14/2020 Homozygous Factor V Leiden mutation ([facility]) 05/03/2020 Hypothyroidism IBS (irritable bowel syndrome) 01/23/2013 [...] INSTRUCTIONS Patient Name: Sandra Schmitz Clinic Number: [id number] Skin prepped and cleansed with alcohol Patch secured to prepped area Monitor Activated Serial #: [id number] Patient Instructed: Prescribed order timeframe Bathing guidelines Usage of event button and diary documentation Return of monitor at the end of prescribed order Call with problems [phone] or [phone]. [phone] Patient expresses a good understanding of instructions Anni Roldan * Santo Oneill MD - 08/14/2022 11:57 AM EDT Images from the original note were not included. Santo Oneill MD Interventional Cardiology [facility] [address] [place], [place] [address] [phone] Chief Complaint Patient presents with: Established Patient [...] to correct any errors. documented in this encounterGreene Memorial Hospital03-30-2023 History of Present illness Narrative* Mandeep Houser, - 08/10/2022 11:20 AM EDT CC: Sandra Schmitz is a 77 year old female who presents to the office for OMT HPI: Here for OMT today, has had care tech and OMT in the past. Right mid [...] on chronic systolic CHF (congestive heart failure) ([facility]) 05/03/2020 Aspiration pneumonia ([facility]) 05/30/2020 Chest pain 05/03/2020 Chest pressure 01/23/2013 Chronic diastolic congestive heart failure ([facility]) 02/14/2021 Clostridium difficile diarrhea 09/28/2020 Complete uterovaginal prolapse Cystocele, midline Essential hypertension 06/14/2020 Homozygous Factor V Leiden mutation ([facility]) 05/03/2020 Hypothyroidism IBS (irritable bowel syndrome) 01/23/2013 [...] plan. See patient instructions. Mandeep Houser DO [address] [place] [address] documented in this encounterGreene Memorial Hospital03-30-2023 History of Present illness Narrative* Mandeep Houser [...] on chronic systolic CHF (congestive heart failure) ([facility]) 05/03/2020 Aspiration pneumonia ([facility]) 05/30/2020 Chest pain 05/03/2020 Chest pressure 01/23/2013 [...] plan. See patient instructions. Mandeep Houser DO [address] [place] [address] documented in this encounterGreene Memorial Hospital03-23-2023 History of Present illness Narrative* Linda Juarez [...] 03, 2022 10:33 AM documented in this encounterGreene Memorial Hospital03-15-2023 Miscellaneous Notes* Telephone Encounter - Palak Jacobson [...] day Alejandrina Harvey APRN.CNP documented in this encounterGreene Memorial Hospital03-14-2023 History of Present illness Narrative* Abraham Ibarra [...] 25, 2022 3:03 PM documented in this encounterGreene Memorial Hospital03-10-2023 Instructions* Patient Instructions* Alejandrina Harvey APRN.CNP - [...] your usual activities immediately. documented in this encounterGreene Memorial Hospital03-10-2023 History of Present illness Narrative* Alejandrina Harvey [...] on chronic systolic CHF (congestive heart failure) ([facility]) 05/03/2020 Aspiration pneumonia ([facility]) 05/30/2020 Chest pain 05/03/2020 Chest pressure 01/23/2013 [...] ICD10: Z13.820 - DXA-AXIAL SKELETON Alejandrina Harvey APRN.MEDICAL DEVICE SALES documented in this encounterGreene Memorial Hospital03-07-2023 History of Present illness Narrative* Mandeep Houser, [...] plan. See patient instructions. Mandeep Houser DO [address] [place] [address] documented in this encounterGreene Memorial Hospital01-12-2023 Miscellaneous Notes* Telephone Encounter - Griselda Harris [...] concerns. Mandeep Houser DO documented in this encounterGreene Memorial Hospital01-03-2023 Miscellaneous Notes* Telephone Encounter - Leyla Ferreira [...] from pharmacy's request. Please send RX to [facility] [place] in [place]. documented in this encounterGreene Memorial Hospital12-21-2022 History of Present illness Narrative* Mandeep Houser [...] See patient instructions. Mandeep Houser DO [address] [place] [address] documented in this encounterGreene Memorial Hospital12-21-2022 Miscellaneous Notes* Telephone Encounter - Mandeep Houser [...] Please advise the patient. documented in this encounterGreene Memorial Hospital11-23-2022 History of Present illness Narrative* Enmanuel Sahu - 04/05/2022 11:02 AM EST POPULATION HEALTH NAVIGATION OUTREACH Action/I RP Outreach: Contacted patient to schedule ROBEL Consult for Chronic pain of right ankle [M25.571, G89.29] and patient requested to call back [phone]. Any agent can assist. Pt identified by name and : YES, via [employer] Outreach Outcome/Action Spoke to patient or caregiver: [...] 05, 2022 11:03 AM documented in this encounterGreene Memorial Hospital11-18-2022 History of Present illness Narrative* Santisujit Sahu - 03/31/2022 2:07 PM EST POPULATION HEALTH NAVIGATION OUTREACH Action/I RP Outreach: LVM for Patient to call back and schedule ROBEL Consult for Chronic pain of right ankle [M25.571, G89.29]. [phone]. Any agent can assist. Pt identified by name and : YES, via [place] Outreach Outcome/Action Unable to reach patient: Left [...] 31, 2022 2:07 PM documented in this encounterGreene Memorial Hospital10-31-2022 Miscellaneous Notes* Telephone Encounter - Kelsey Costa LPN - 03/13/2022 9:59 AM EDT Pt. informed, * Telephone Encounter - Alejandrina Harvey APRN.CNP - 03/13/2022 7:45 AM EDT Please let Sandra know that her COVID and flu tests are negative. Alejandrina Harvey APRN.CNP documented in this encounterGreene Memorial Hospital10-28-2022 Miscellaneous Notes* Telephone Encounter - Griselda Harris Ma - 03/10/2022 11:08 AM EDT Faxed 03/10/2022 BRANDI Harris Ma * Telephone Encounter - Alejandrina Harvey APRN.CNP - 03/10/2022 10:14 AM EDT Please fax podiatry consult to Dr. Contreras's office. Alejandrina Harvey APRN.CNP documented in this encounterGreene Memorial Hospital10-03-2022 History of Present illness Narrative* Santo Oneill MD - 02/13/2022 12:21 PM EDT Images from the original note were not included. Santo Oneill MD Interventional Cardiology [address] [place] [address] Chief Complaint Patient presents with: Follow Up [...] on chronic systolic CHF (congestive heart failure) ([facility]) 05/03/2020 Aspiration pneumonia ([facility]) 05/30/2020 Chest pain 05/03/2020 Chest pressure 01/23/2013 [...] 1 tablet by mouth once daily. 90 [id number] L. acidophilus/L. rhamnosus ([facility]) Take [...] to correct any errors. documented in this encounterGreene Memorial Hospital09-09-2022 History of Present illness Narrative* Alejandrina Harvey, MELI.MEDICAL DEVICE SALES - 01/20/2022 10:51 AM EDT Chief Complaint Patient presents with: Follow Up: Review lab work HPI Sandra Schmitz is a 76 year old female who presents here today for Above Complaints. Today: Would like to review her lab results today. Knows that her cholesterol still elevated, but has not tolerated Lipitor or Crestor. She is awaiting a call back from her internet marketing intern in regards to possibly starting a new [...] with cardiology. 4. Coronary artery disease involving [place] coronary artery of [place] heart with other form of angina pectoris [...] TABLET Alejandrina Harvey APRN.TIM documented in this encounterGreene Memorial Hospital09-06-2022 Miscellaneous Notes* Telephone Encounter - Leyla Ferreira [...] mg of Crestor? Thank you, Saqib. MELI Culp.MEDICAL DEVICE SALES documented in this encounterGreene Memorial Hospital08-16-2022 Miscellaneous Notes* Telephone Encounter - Anni Herrera [...] you. Anni Herrera LPN documented in this encounterGreene Memorial Hospital08-08-2022 Instructions* Patient Instructions* Sincere Perkins PA-C - 12/19/2021 9:33 AM EDT The following instructions are important for you related to your office visit today with the [facility] General Surgeons. -Continue omeprazole for 1-2 [...] you should contact our office immediately @ [phone] and ask to be transferred to the General Surgery department. documented in this encounterGreene Memorial Hospital08-08-2022 History of Present illness Narrative* Sincere Perkins PA-C - 12/19/2021 9:15 AM EDT FOLLOW UP VISIT - ENDOSCOPY NAME: Sandra Ricardo [facility] NO.: [id number] DATE OF SERVICE: 12/19/2021 : 1945 REFERRING PHYSICIAN: Mandeep Houser DO Sandra is a patient I am following with Dr. Marshall for history of colon polyps as well as upper GI complaints. Dr. Marshall performed upper and lower endoscopy on 12/05/21 at [facility]. The patient was found to have [...] which included preparing to see the patient, [id number] patient care, completing clinical documentation, obtaining and/or reviewing separately obtained history, counseling and educating the patient/family/caregiver, independently interpretin g results (not separately reported), and communicating results to the patient/family/caregiver. Sincere Perkins PA-C documented in [facility] encounterGre[facility]07-28-[facility]22 Miscellaneous Notes* Telephone Encounter - Rula Lopez RN - 12/08/2021 11:11 AM EDT Pt. notified. Please send refill for Losartan to [facility]. Thank you. Rula Lopez RN * Telephone Encounter - Rula Lopez RN - 12/08/2021 11:11 AM EDT Images from the original note were not included. Estelita Culp APRN.MEDICAL DEVICE SALES You; Santo Oneill MD 12 minutes ago [...] hears back from someone. documented in this encounterGreene [facility] Hospital07-25-2022 History and physical note * Wes Marshall [...] a colonoscopy performed by Dr. Marshall in [place] for 04/04/21, however procedure was cancelled. Patient [...] patient was offered a surgery/procedure [facility] a [facility] facility. I have counseled the patient regarding [...] mail. Sincere Perkins PA-C documented in this encounterGreene [facility] Hospital07-19-2022 Miscellaneous Notes* Telephone Encounter - Sincere Perkins [...] upper and lower scope with [facility] in [place] and is on miralax/dulcalax as her prep [...] moved up to 12/05 with [facility] in [place] for upper and lower scopes. LV of [...] 02/20/2022 colon egd ko documented in this encounterGreene [facility] Hospital07-19-2022 Miscellaneous Notes* Telephone Encounter - Rula Lopez [...] stomach problems. Please advise. documented in this encounterGreene [facility] Hospital06-23-2022 History of Present illness Narrative* Vinita Flores Pss - 11/03/2021 3:26 PM EDT Patient seen by Elisha Perkins on 11/02 for consult. * Dejan Lorenzo - 11/01/2021 11:45 AM EDT Patient due for screening colonoscopy . Patient is not appropriate for open access. Please scheduleoffice consult Dejan Lorenzo documented in this encounterGreene [facility] Hospital06-23-2022 History of Present illness Narrative* Sincere Perkins [...] a colonoscopy performed by Dr. Marshall in [place] for 04/04/21, however procedure was cancelled. Patient [...] entered by the nurse and reviewed by ia Nursing Notes: Maritza Contreras LPN 11/02/2021 1:34 [...] patient was offered a surgery/procedure at a [facility]. I have counseled the patient regarding [...] mail. Sincere Perkins PA-C documented in this encounterGreene [facility] Hospital06-22-2022 Nurse Note* Maritza Contreras LPN - 11/02/2021 [...] 2020 Maritza Contreras LPN documented in this encounterGreene [facility] Hospital06-16-2022 Miscellaneous Notes* Telephone Encounter - Estelita Hermosillo LPN - 10/27/2021 10:51 AM EDT I spoke to and informed her of Estelita's response to lab results. Patient voiced understanding. Estelita Hermosillo LPN * Telephone Encounter - Estelita Hermosillo LPN - 10/27/2021 10:50 AM EDT ----- Message from Estelita Culp APRN.MEDICAL DEVICE SALES sent at 10/27/2021 10:39 AM EDT ----- Please call patient and notify her of results. BMP and CBC stable. Thank you! documented in this encounterGreene [facility] Hospital06-16-2022 History of Present illness Narrative* RT Dayanna(R) [...] 2021 TIME: 1:36 PM documented in this encounterGreene [facility] Hospital06-13-2022 Miscellaneous Notes* Telephone Encounter - Kelsey Shannon RN - 10/24/2021 4:00 PM EDT Patient scheduled for left heart cath, with Dr Oneill on 11/10/21. Instructions reviewed. Questions answered. Patient verbalized understanding. Instructions were as follows: -Arrive to [facility] En[facility] at time assigned by [facility] catheterization laboratory technician staff in phone call 2-5 PM on [...] someone drive you home from your procedure. -catheterization laboratory technician policy is pt not be alone first evening Office phone number provided for questions or concerns. Kelsey Shannon RN * Telephone Encounter - Luzma Tejeda [facility] [place] - 10/24/2021 1:33 PM EDT Schedule C on 11/10/[address] Oneill Electronically signed by Luzma Tejeda [facility] [place] [facility] at 10/24/2021 1:34 PM EDT documented in this encounterGreene [facility] Hospital06-13-2022 History of Present illness Narrative* Kelsey Costa [...] Dr Ragsdale after CT documented in this encounterGreene Memorial Hospital06-08-2022 Instructions* Patient Instructions* Alejandrina Harvey APRN.CNP - 10/19/2021 12:28 PM EDT Schedule your CT scan of your abdomen and pelvis. I'll get back with you in regards to the clearance for you colonoscopy. documented in this encounterGreene [facility] Hospital06-08-2022 History of Present illness Narrative* Alejandrina Harvey [...] PROCEDURE) Alejandrina Harvey APRN.TIM documented in this encounterGreene [facility] Hospital05-11-2022 History of Present illness Narrative* Mandeep Houser [...] on chronic systolic CHF (congestive heart failure) ([facility]) 05/03/2020 Aspiration pneumonia ([facility]) 05/30/2020 Chest pain 05/03/2020 Chest pressure 01/23/2013 Chronic diastolic congestive heart failure ([facility]) 02/14/2021 Clostridium difficile diarrhea 09/28/2020 Complete uterovaginal prolapse Cystocele, midline Essential hypertension 06/14/2020 Homozygous Factor V Leiden mutation ([facility]) 05/03/2020 Hypothyroidism IBS (irritable bowel syndrome) 01/23/2013 [...] plan. See patient instructions. Mandeep Houser DO [address] [place] [address] documented in this encounterGreene Memorial Hospital05-09-2022 Miscellaneous Notes* Telephone Encounter - Griselda Harris [...] Provider: ALEJANDRINA HARVEY APRN.CNP documented in this encounterGreene Memorial Hospital04-22-2022 Miscellaneous Notes* Telephone Encounter - Griselda Harris [...] appointment. Alejandrina Harvey APRN.CNP documented in this encounterGreene Memorial Hospital04-21-2022 Instructions* Patient Instructions* Alejandrina Harvey APRN.CNP - 09/01/2021 3:57 PM EDT Have your xrays completed. I typically have results in 24 hours or less. Have your lab work completed, fasting, when able. We typically have results in 1-2 days. documented in this encounter[address]21-2022 History of Present illness Narrative* Alejandrina Yasir, CONDUIT BENDER.MEDICAL DEVICE SALES - 09/01/2021 3:40 PM EDT Patient presents [...] on chronic systolic CHF (congestive heart failure) ([facility]) 05/03/2020 Aspiration pneumonia ([facility]) 05/30/2020 Chest pain 05/03/2020 Chest pressure 01/23/2013 Chronic diastolic congestive heart failure ([facility]) 02/14/2021 Clostridium difficile diarrhea 09/28/2020 Complete uterovaginal prolapse Cystocele, midline Essential hypertension 06/14/2020 Homozygous Factor V Leiden mutation ([facility]) 05/03/2020 Hypothyroidism IBS (irritable bowel syndrome) 01/23/2013 [...] ICD10: R79.9 - HGB A1C Alejandrina Harvey APRN.MEDICAL DEVICE SALES To ER if develops chest pain, shortness of breath, or severe worsening of symptoms. Discussed risks, benefits, alternatives, and potential side effects of medications. Patient expressed understanding and agreed with the plan. Alejandrina Harvey APRN.MEDICAL DEVICE SALES [address] [place] [address] documented in this encounterGreene [facility] Hospital04-18-2022 Miscellaneous Notes* Telephone Encounter - Griselda Harris Ma - 08/29/2021 1:42 PM EDT Pt scheduled with RS to [facility] care Griselda Harris Ma * Telephone Encounter [...] if okay to schedule. documented in this encounterGreene [facility] Hospital04-12-2022 History of Present illness Narrative* Farzana Rodriguez [...] 23, 2021 10:23 AM documented in this encounterGreene Memorial Hospital04-04-2022 Miscellaneous Notes* Letter - Mammography Coordinator - 08/15/2021 1:00 PM EDT August 15, 2021 PID: [id number] Sandra Schmitz [address] [place] [address] Dear Ms. Schmitz, We are pleased to [...] report will be [facility] at [facility] as part of your permanent medical record and are available for your continuing care. Thank you for allowing us to help in meeting your health care needs. Sincerely, Dr. Zendejas Interpreting Radiologist [facility] (Normal over 40) documented in this encounterGreene Memorial Hospital04-04-2022 History of Present illness Narrative* Polina Castaneda, [...] 15, 2021 9:50 AM documented in this encounterGreene Memorial Hospital03-29-2022 History of Present illness Narrative* Estelita Maradiaga, [...] treatment included: Therapeutic exercise, Manual therapy, Self- fpc management and Patient/Family/Caregiver Education. Pt. Reports reduced [...] 07/11/21 through 09/05/21 Goals updated on 08/09/2021. [place] in home exercise program. -- PARTIALLY MET [...] the elbow felt somewhat looser after the [facility] last visit but then returned back to [...] 30 Estelita Maradiaga PT documented in this encounterGreene Memorial Hospital08-25-2021 History of Present illness Narrative* Nely Carrasquillo [...] 05, 2021 10:18 AM documented in this encounterGreene Memorial Hospital03-22-2021 History of Present illness Narrative* Luzma VegaRt)Marino [...] 02, 2020 12:14 PM documented in this encounterGreene Memorial Hospital01-17-2021 History of Past illness Narrative* Problem Noted Date Resolved Date Aspiration pneumonia 05/30/2020 09/22/2020 Post-operative state 05/24/2020 06/14/2020 Shortness of breath 05/03/2020 06/14/2020 Chest pain 05/03/2020 06/14/2020 documented as of this encounter (statuses as of 08/09/2021) [address]17-2021 History of Past illness Narrative* Problem Noted Date Resolved Date Aspiration pneumonia 05/30/2020 09/22/2020 Post-operative state 05/24/2020 06/14/2020 Shortness of breath 05/03/2020 06/14/2020 Chest pain 05/03/2020 06/14/2020 documented as of this encounter (statuses as of 08/16/2021) [address]17-2021 History of Past illness Narrative* Problem Noted Date Resolved Date Aspiration pneumonia 05/30/2020 09/22/2020 Post-operative state 05/24/2020 06/14/2020 Shortness of breath 05/03/2020 06/14/2020 Chest pain 05/03/2020 06/14/2020 documented as of this encounter (statuses as of 08/17/2021) [address]17-2021 History of Past illness Narrative* Problem Noted Date Resolved Date Aspiration pneumonia 05/30/2020 09/22/2020 Post-operative state 05/24/2020 06/14/2020 Shortness of breath 05/03/2020 06/14/2020 Chest pain 05/03/2020 06/14/2020 documented as of this encounter (statuses as of 08/23/2021) [address]17-2021 History of Past illness Narrative* Problem Noted Date Resolved Date Aspiration pneumonia 05/30/2020 09/22/2020 Post-operative state 05/24/2020 06/14/2020 Shortness of breath 05/03/2020 06/14/2020 Chest pain 05/03/2020 06/14/2020 documented as of this encounter (statuses as of 09/02/2021) [address]17-2021 History of Past illness Narrative* Problem Noted Date Resolved Date Aspiration pneumonia 05/30/2020 09/22/2020 Post-operative state 05/24/2020 06/14/2020 Shortness of breath 05/03/2020 06/14/2020 Chest pain 05/03/2020 06/14/2020 documented as of this encounter (statuses as of 09/07/2021) [address]17-2021 History of Past illness Narrative* Problem Noted Date Resolved Date Aspiration pneumonia 05/30/2020 09/22/2020 Post-operative state 05/24/2020 06/14/2020 Shortness of breath 05/03/2020 06/14/2020 Chest pain 05/03/2020 06/14/2020 documented as of this encounter (statuses as of 09/19/2021) [address]17-2021 History of Past illness Narrative* Problem Noted Date Resolved Date Aspiration pneumonia 05/30/2020 09/22/2020 Post-operative state 05/24/2020 06/14/2020 Shortness of breath 05/03/2020 06/14/2020 Chest pain 05/03/2020 06/14/2020 documented as of this encounter (statuses as of 09/21/2021) [address]17-2021 History of Past illness Narrative* Problem Noted Date Resolved Date Aspiration pneumonia 05/30/2020 09/22/2020 Post-operative state 05/24/2020 06/14/2020 Shortness of breath 05/03/2020 06/14/2020 Chest pain 05/03/2020 06/14/2020 documented as of this encounter (statuses as of 09/29/2021) [address]17-2021 History of Past illness Narrative* Problem Noted Date Resolved Date Aspiration pneumonia 05/30/2020 09/22/2020 Post-operative state 05/24/2020 06/14/2020 Shortness of breath 05/03/2020 06/14/2020 Chest pain 05/03/2020 06/14/2020 documented as of this encounter (statuses as of 10/20/2021) [address]17-2021 History of Past illness Narrative* Problem Noted Date Resolved Date Aspiration pneumonia 05/30/2020 09/22/2020 Post-operative state 05/24/2020 06/14/2020 Shortness of breath 05/03/2020 06/14/2020 Chest pain 05/03/2020 06/14/2020 documented as of this encounter (statuses as of 10/24/2021) [address]17-2021 History of Past illness Narrative* Problem Noted Date Resolved Date Aspiration pneumonia 05/30/2020 09/22/2020 Post-operative state 05/24/2020 06/14/2020 Shortness of breath 05/03/2020 06/14/2020 Chest pain 05/03/2020 06/14/2020 documented as of this encounter (statuses as of 10/27/2021) [address]17-2021 History of Past illness Narrative* Problem Noted Date Resolved Date Aspiration pneumonia 05/30/2020 09/22/2020 Post-operative state 05/24/2020 06/14/2020 Shortness of breath 05/03/2020 06/14/2020 Chest pain 05/03/2020 06/14/2020 documented as of this encounter (statuses as of 10/28/2021) [address]17-2021 History of Past illness Narrative* Problem Noted Date Resolved Date Aspiration pneumonia 05/30/2020 09/22/2020 Post-operative state 05/24/2020 06/14/2020 Shortness of breath 05/03/2020 06/14/2020 Chest pain 05/03/2020 06/14/2020 documented as of this encounter (statuses as of 11/03/2021) [address]17-2021 History of Past illness Narrative* Problem Noted Date Resolved Date Aspiration pneumonia 05/30/2020 09/22/2020 Post-operative state 05/24/2020 06/14/2020 Shortness of breath 05/03/2020 06/14/2020 Chest pain 05/03/2020 06/14/2020 documented as of this encounter (statuses as of 11/03/2021) [address]17-2021 History of Past illness Narrative* Problem Noted Date Resolved Date Aspiration pneumonia 05/30/2020 09/22/2020 Post-operative state 05/24/2020 06/14/2020 Shortness of breath 05/03/2020 06/14/2020 Chest pain 05/03/2020 06/14/2020 documented as of this encounter (statuses as of 11/10/2021) [address]17-2021 History of Past illness Narrative* Problem Noted Date Resolved Date Aspiration pneumonia 05/30/2020 09/22/2020 Post-operative state 05/24/2020 06/14/2020 Shortness of breath 05/03/2020 06/14/2020 Chest pain 05/03/2020 06/14/2020 documented as of this encounter (statuses as of 11/29/2021) [address]17-2021 History of Past illness Narrative* Problem Noted Date Resolved Date Aspiration pneumonia 05/30/2020 09/22/2020 Post-operative state 05/24/2020 06/14/2020 Shortness of breath 05/03/2020 06/14/2020 Chest pain 05/03/2020 06/14/2020 documented as of this encounter (statuses as of 12/06/2021) [address]17-2021 History of Past illness Narrative* Problem Noted Date Resolved Date Aspiration pneumonia 05/30/2020 09/22/2020 Post-operative state 05/24/2020 06/14/2020 Shortness of breath 05/03/2020 06/14/2020 Chest pain 05/03/2020 06/14/2020 documented as of this encounter (statuses as of 12/08/2021) [address]17-2021 History of Past illness Narrative* Problem Noted Date Resolved Date Aspiration pneumonia 05/30/2020 09/22/2020 Post-operative state 05/24/2020 06/14/2020 Shortness of breath 05/03/2020 06/14/2020 Chest pain 05/03/2020 06/14/2020 documented as of this encounter (statuses as of 12/27/2021) [address]17-2021 History of Past illness Narrative* Problem Noted Date Resolved Date Aspiration pneumonia 05/30/2020 09/22/2020 Post-operative state 05/24/2020 06/14/2020 Shortness of breath 05/03/2020 06/14/2020 Chest pain 05/03/2020 06/14/2020 documented as of this encounter (statuses as of 12/27/2021) [address]17-2021 History of Past illness Narrative* Problem Noted Date Resolved Date Aspiration pneumonia 05/30/2020 09/22/2020 Post-operative state 05/24/2020 06/14/2020 Shortness of breath 05/03/2020 06/14/2020 Chest pain 05/03/2020 06/14/2020 documented as of this encounter (statuses as of 01/19/2022) [address]17-2021 History of Past illness Narrative* Problem Noted Date Resolved Date Aspiration pneumonia 05/30/2020 09/22/2020 Post-operative state 05/24/2020 06/14/2020 Shortness of breath 05/03/2020 06/14/2020 Chest pain 05/03/2020 06/14/2020 documented as of this encounter (statuses as of 01/19/2022) [address]17-2021 History of Past illness Narrative* Problem Noted Date Resolved Date Aspiration pneumonia 05/30/2020 09/22/2020 Post-operative state 05/24/2020 06/14/2020 Shortness of breath 05/03/2020 06/14/2020 Chest pain 05/03/2020 06/14/2020 documented as of this encounter (statuses as of 01/20/2022) [address]17-2021 History of Past illness Narrative* Problem Noted Date Resolved Date Aspiration pneumonia 05/30/2020 09/22/2020 Post-operative state 05/24/2020 06/14/2020 Shortness of breath 05/03/2020 06/14/2020 Chest pain 05/03/2020 06/14/2020 documented as of this encounter (statuses as of 02/13/2022) [address]17-2021 History of Past illness Narrative* Problem Noted Date Resolved Date Aspiration pneumonia 05/30/2020 09/22/2020 Post-operative state 05/24/2020 06/14/2020 Shortness of breath 05/03/2020 06/14/2020 Chest pain 05/03/2020 06/14/2020 documented as of this encounter (statuses as of 03/10/2022) [address]17-2021 History of Past illness Narrative* Problem Noted Date Resolved Date Aspiration pneumonia 05/30/2020 09/22/2020 Post-operative state 05/24/2020 06/14/2020 Shortness of breath 05/03/2020 06/14/2020 Chest pain 05/03/2020 06/14/2020 documented as of this encounter (statuses as of 03/13/2022) [address]17-2021 History of Past illness Narrative* Problem Noted Date Resolved Date Aspiration pneumonia 05/30/2020 09/22/2020 Post-operative state 05/24/2020 06/14/2020 Shortness of breath 05/03/2020 06/14/2020 Chest pain 05/03/2020 06/14/2020 documented as of this encounter (statuses as of 03/31/2022) [address]17-2021 History of Past illness Narrative* Problem Noted Date Resolved Date Aspiration pneumonia 05/30/2020 09/22/2020 Post-operative state 05/24/2020 06/14/2020 Shortness of breath 05/03/2020 06/14/2020 Chest pain 05/03/2020 06/14/2020 documented as of this encounter (statuses as of 04/05/2022) [facility] Narrative* Problem Noted Date Resolved Date Aspiration pneumonia 05/30/2020 09/22/2020 Post-operative state 05/24/2020 06/14/2020 Shortness of breath 05/03/2020 06/14/2020 Chest pain 05/03/2020 06/14/2020 documented as of this encounter (statuses as of 05/03/2022) [facility] Narrative* Problem Noted Date Resolved Date Aspiration pneumonia 05/30/2020 09/22/2020 Post-operative state 05/24/2020 06/14/2020 Shortness of breath 05/03/2020 06/14/2020 Chest pain 05/03/2020 06/14/2020 documented as of this encounter (statuses as of 05/18/2022) [address]17-2021 History of Past illness Narrative* Problem Noted Date Resolved Date Aspiration pneumonia 05/30/2020 09/22/2020 Post-operative state 05/24/2020 06/14/2020 Shortness of breath 05/03/2020 06/14/2020 Chest pain 05/03/2020 06/14/2020 documented as of this encounter (statuses as of 07/12/2022) [facility] Narrative* Problem Noted Date Resolved Date Aspiration pneumonia 05/30/2020 09/22/2020 Post-operative state 05/24/2020 06/14/2020 Shortness of breath 05/03/2020 06/14/2020 Chest pain 05/03/2020 06/14/2020 documented as of this encounter (statuses as of 07/18/2022) [facility] Narrative* Problem Noted Date Resolved Date Aspiration pneumonia 05/30/2020 09/22/2020 Post-operative state 05/24/2020 06/14/2020 Shortness of breath 05/03/2020 06/14/2020 Chest pain 05/03/2020 06/14/2020 documented as of this encounter (statuses as of 07/25/2022) [address]17-2021 History of Past illness Narrative* Problem Noted Date Resolved Date Aspiration pneumonia 05/30/2020 09/22/2020 Post-operative state 05/24/2020 06/14/2020 Shortness of breath 05/03/2020 06/14/2020 Chest pain 05/03/2020 06/14/2020 documented as of this encounter (statuses as of 07/27/2022) [address]17-2021 History of Past illness Narrative* Problem Noted Date Resolved Date Aspiration pneumonia 05/30/2020 09/22/2020 Post-operative state 05/24/2020 06/14/2020 Shortness of breath 05/03/2020 06/14/2020 Chest pain 05/03/2020 06/14/2020 documented as of this encounter (statuses as of 08/03/2022) [place] [address]-17-2021 History of Past illness Narrative* Problem Noted Date Resolved Date Aspiration pneumonia 05/30/2020 09/22/2020 Post-operative state 05/24/2020 06/14/2020 Shortness of breath 05/03/2020 06/14/2020 Chest pain 05/03/2020 06/14/2020 documented as of this encounter (statuses as of 08/10/2022) [address]17-2021 History of Past illness Narrative* Problem Noted Date Resolved Date Aspiration pneumonia 05/30/2020 09/22/2020 Post-operative state 05/24/2020 06/14/2020 Shortness of breath 05/03/2020 06/14/2020 Chest pain 05/03/2020 06/14/2020 documented as of this encounter (statuses as of 08/10/2022) [address]17-2021 History of Past illness Narrative* Problem Noted Date Resolved Date Aspiration pneumonia 05/30/2020 09/22/2020 Post-operative state 05/24/2020 06/14/2020 Shortness of breath 05/03/2020 06/14/2020 Chest pain 05/03/2020 06/14/2020 documented as of this encounter (statuses as of 08/14/2022) [facility] Narrative* Problem Noted Date Resolved Date Aspiration pneumonia 05/30/2020 09/22/2020 Post-operative state 05/24/2020 06/14/2020 Shortness of breath 05/03/2020 06/14/2020 Chest pain 05/03/2020 06/14/2020 documented as of this encounter (statuses as of 08/25/2022) [address]17-2021 History of Past illness Narrative* Problem Noted Date Resolved Date Aspiration pneumonia 05/30/2020 09/22/2020 Post-operative state 05/24/2020 06/14/2020 Shortness of breath 05/03/2020 06/14/2020 Chest pain 05/03/2020 06/14/2020 documented as of this encounter (statuses as of 09/11/2022) [facility] Narrative* Problem Noted Date Resolved Date Aspiration pneumonia 05/30/2020 09/22/2020 Post-operative state 05/24/2020 06/14/2020 Shortness of breath 05/03/2020 06/14/2020 Chest pain 05/03/2020 06/14/2020 documented as of this encounter (statuses as of 09/22/2022) [address]17-2021 History of Past illness Narrative* Problem Noted Date Resolved Date Aspiration pneumonia 05/30/2020 09/22/2020 Post-operative state 05/24/2020 06/14/2020 Shortness of breath 05/03/2020 06/14/2020 Chest pain 05/03/2020 06/14/2020 documented as of this encounter (statuses as of 10/12/2022) [facility] Narrative* Problem Noted Date Resolved Date Aspiration pneumonia 05/30/2020 09/22/2020 Post-operative state 05/24/2020 06/14/2020 Shortness of breath 05/03/2020 06/14/2020 Chest pain 05/03/2020 06/14/2020 documented as of this encounter (statuses as of 10/14/2022) [facility] Narrative* Problem Noted Date Resolved Date Aspiration pneumonia 05/30/2020 09/22/2020 Post-operative state 05/24/2020 06/14/2020 Shortness of breath 05/03/2020 06/14/2020 Chest pain 05/03/2020 06/14/2020 documented as of this encounter (statuses as of 10/15/2022) [facility] Narrative* Problem Noted Date Resolved Date Aspiration pneumonia 05/30/2020 09/22/2020 Post-operative state 05/24/2020 06/14/2020 Shortness of breath 05/03/2020 06/14/2020 Chest pain 05/03/2020 06/14/2020 documented as of this encounter (statuses as of 10/30/2022) [facility] Narrative* Problem Noted Date Diagnosed Date Resolved Date Aspiration pneumonia 05/30/2020 021 Post-operative state 05/24/2020 021 Shortness of breath 05/03/2020 06/14/19 21 Chest pain 05/03/2020 06/14/2020 documented as of this encounter (statuses as of 12/19/2022) [facility]01-17-2021 History of Past illness Narrative* Problem Noted Date Diagnosed Date Resolved Date Aspiration pneumonia 05/30/2020 021 Post-operative state 05/24/2020 021 Shortness of breath 05/03/2020 06/14/19 21 Chest pain 05/03/2020 06/14/2020 documented as of this encounter (statuses as of 01/10/2023) [address]17-2021 History of Past illness Narrative* Problem Noted Date Diagnosed Date Resolved Date Aspiration pneumonia 05/30/2020 021 Post-operative state 05/24/2020 021 Shortness of breath 05/03/2020 06/14/19 21 Chest pain 05/03/2020 06/14/2020 documented as of this encounter (statuses as of 01/10/2023) [facility]01-17-2021 History of Past illness Narrative* Problem Noted Date Diagnosed Date Resolved Date Aspiration pneumonia 05/30/2020 021 Post-operative state 05/24/2020 021 Shortness of breath 05/03/2020 06/14/19 21 Chest pain 05/03/2020 06/14/2020 documented as of this encounter (statuses as of 01/12/2023) [facility]01-17-2021 History of Past illness Narrative* Problem Noted Date Diagnosed Date Resolved Date Aspiration pneumonia 05/30/2020 021 Post-operative state 05/24/2020 021 Shortness of breath 05/03/2020 06/14/19 21 Chest pain 05/03/2020 06/14/2020 documented as of this encounter (statuses as of 02/21/2023) [facility]17-2021 History of Past illness Narrative* Problem Noted Date Diagnosed Date Resolved Date Aspiration pneumonia 05/30/2020 021 Post-operative state 05/24/2020 021 Shortness of breath 05/03/2020 06/14/19 21 Chest pain 05/03/2020 06/14/2020 documented as of this encounter (statuses as of 03/18/2023) [facility]17[facility]2021 History of Past illness Narrative* Problem Noted Date Diagnosed Date Resolved Date Aspiration pneumonia 05/30/2020 021 Post-operative state 05/24/2020 021 Shortness of breath 05/03/2020 06/14/19 21 Chest pain 05/03/2020 06/14/2020 documented as of this encounter (statuses as of 03/18/2023) [facility]17[facility]2021 History of Past illness Narrative* Problem Noted Date Diagnosed Date Resolved Date Aspiration pneumonia 05/30/2020 021 Post-operative state 05/24/2020 021 Shortness of breath 05/03/2020 06/14/19 21 Chest pain 05/03/2020 06/14/2020 documented as of this encounter (statuses as of 03/18/2023) [facility]2021 History of Past illness Narrative* Problem Noted Date Diagnosed Date Resolved Date Aspiration pneumonia 05/30/2020 021 Post-operative state 05/24/2020 021 Shortness of breath 05/03/2020 06/14/19 21 Chest pain 05/03/2020 06/14/2020 documented as of this encounter (statuses as of 03/18/2023) [facility]2021 History of Past illness Narrative* Problem Noted Date Diagnosed Date Resolved Date Aspiration pneumonia 05/30/2020 021 Post-operative state 05/24/2020 021 Shortness of breath 05/03/2020 06/14/19 21 Chest pain 05/03/2020 06/14/2020 documented as of this encounter (statuses as of 03/20/2023) [facility]21 History of Past illness Narrative* Problem Noted Date Diagnosed Date Resolved Date Aspiration pneumonia 05/30/2020 021 Post-operative state 05/24/2020 021 Shortness of breath 05/03/2020 06/14/19 21 Chest pain 05/03/2020 06/14/2020 documented as of this encounter (statuses as of 04/10/2023) [facility]21 History of Past illness Narrative* Problem Noted Date Diagnosed Date Resolved Date Aspiration pneumonia 05/30/2020 021 Post-operative state 05/24/2020 021 Shortness of breath 05/03/2020 06/14/19 21 Chest pain 05/03/2020 06/14/2020 documented as of this encounter (statuses as of 04/25/2023) [facility]2021 History of Past illness Narrative* Problem Noted Date Diagnosed Date Resolved Date Aspiration pneumonia 05/30/2020 021 Post-operative state 05/24/2020 021 Shortness of breath 05/03/2020 06/14/19 21 Chest pain 05/03/2020 06/14/2020 documented as of this encounter (statuses as of 04/27/2023) [facility]2021 History of Past illness Narrative* Problem Noted Date Diagnosed Date Resolved Date Aspiration pneumonia 05/30/2020 021 Post-operative state 05/24/2020 021 Shortness of breath 05/03/2020 06/14/19 21 Chest pain 05/03/2020 06/14/2020 documented as of this encounter (statuses as of 07/13/2023) [facility]2021 History of Past illness Narrative* Problem Noted Date Diagnosed Date Resolved Date Aspiration pneumonia 05/30/2020 021 Post-operative state 05/24/2020 021 Shortness of breath 05/03/2020 06/14/19 21 Chest pain 05/03/2020 06/14/2020 documented as of this encounter (statuses as of 07/20/2023) [facility]2021 History of Past illness Narrative* Problem Noted Date Diagnosed Date Resolved Date Aspiration pneumonia 05/30/2020 021 Post-operative state 05/24/2020 021 Shortness of breath 05/03/2020 06/14/19 21 Chest pain 05/03/2020 06/14/2020 documented as of this encounter (statuses as of 07/25/2023) [facility]2021 History of Past illness Narrative* Problem Noted Date Diagnosed Date Resolved Date Aspiration pneumonia 05/30/2020 021 Post-operative state 05/24/2020 021 Shortness of breath 05/03/2020 06/14/19 21 Chest pain 05/03/2020 06/14/2020 documented as of this encounter (statuses as of 07/25/2023) [address]17-2021 History of Past illness Narrative* Problem Noted Date Diagnosed Date Resolved Date Aspiration pneumonia 05/30/2020 021 Post-operative state 05/24/2020 021 Shortness of breath 05/03/2020 06/14/19 21 Chest pain 05/03/2020 06/14/2020 documented as of this encounter (statuses as of 07/26/2023) [address]17-2021 History of Past illness Narrative* Problem Noted Date Diagnosed Date Resolved Date Aspiration pneumonia 05/30/2020 021 Post-operative state 05/24/2020 021 Shortness of breath 05/03/2020 06/14/19 21 Chest pain 05/03/2020 06/14/2020 documented as of this encounter (statuses as of 07/28/2023) [facility]2021 History of Past illness Narrative* Problem Noted Date Diagnosed Date Resolved Date Aspiration pneumonia 05/30/2020 021 Post-operative state 05/24/2020 021 Shortness of breath 05/03/2020 06/14/19 21 Chest pain 05/03/2020 06/14/2020 documented as of this encounter (statuses as of 08/06/2023) [facility]01[facility]2021 History of Past illness Narrative* Problem Noted Date Diagnosed Date Resolved Date Aspiration pneumonia 05/30/2020 021 Post-operative state 05/24/2020 021 Shortness of breath 05/03/2020 06/14/19 21 Chest pain 05/03/2020 06/14/2020 documented as of this encounter (statuses as of 08/07/2023) [facility]2021 History of Past illness Narrative* Problem Noted Date Diagnosed Date Resolved Date Aspiration pneumonia 05/30/2020 021 Post-operative state 05/24/2020 021 Shortness of breath 05/03/2020 06/14/19 21 Chest pain 05/03/2020 06/14/2020 documented as of this encounter (statuses as of 08/08/2023) [address]17-2021 History of Past illness Narrative* Problem Noted Date Diagnosed Date Resolved Date Aspiration pneumonia 05/30/2020 021 Post-operative state 05/24/2020 021 Shortness of breath 05/03/2020 06/14/19 21 Chest pain 05/03/2020 06/14/2020 documented as of this encounter (statuses as of 08/23/2023) [facility]2021 History of Past illness Narrative* Problem Noted Date Diagnosed Date Resolved Date Aspiration pneumonia 05/30/2020 021 Post-operative state 05/24/2020 021 Shortness of breath 05/03/2020 06/14/19 21 Chest pain 05/03/2020 06/14/2020 documented as of this encounter (statuses as of 08/24/2023) [facility]21 History of Past illness Narrative* Problem Noted Date Diagnosed Date Resolved Date Aspiration pneumonia 05/30/2020 021 Post-operative state 05/24/2020 021 Shortness of breath 05/03/2020 06/14/19 21 Chest pain 05/03/2020 06/14/2020 documented as of this encounter (statuses as of 08/28/2023) [facility]12-15-2020 History of Present illness Narrative* [facility] [...] STATUS: Discontinued PROCEDURE TYPE: NM Stress: 13.0mCi [id number] was administered IV for Rest Imaging at 1307 by [facility]. 35.8 mCi [id number] was administered IV for Stress Imaging at [...] 1:10 PM PAGER/CONTACT #: [facility] Diagnosis Left shoulder pain, unspecified chronicity Lateral epicondylitis of left elbow Lateral epicondylitis of elbow [facility] Diagnosis Encounter for screening mammogram for breast cancer [facility] Diagnosis Chronic left shoulder pain- Primary [...] blood chemistry, unspecified documented in this encounter [facility] note* Diagnosis Hypothyroidism, unspecified type- Primary documented in this encounter [facility] note* Diagnosis Rib pain- Primary Chest pain, unspecified Somatic dysfunction of head region Somatic dysfunction of spine, cervical Nonallopathic lesion of cervical region, not elsewhere classified Somatic dysfunction of rib Somatic dysfunction of spine, thoracic Nonallopathic lesion of thoracic region, not elsewhere classified Neck pain Cervicalgia documented in this encounter [facility] note* Diagnosis Diverticulitis- Primary Diverticulitis of colon (without mention of hemorrhage) RLQ abdominal pain Abdominal pain, right lower quadrant Lower abdominal pain Abdominal pain, other specified site documented in this encounter [facility] note* Diagnosis Diverticulitis Diverticulitis of colon (without mention of hemorrhage) RLQ abdominal pain Abdominal pain, right lower quadrant Lower abdominal pain Abdominal pain, other specified site Stable angina (HCC) Other and unspecified angina pectoris Cardiomyopathy, unspecified type (HCC) Dyspnea on exertion Other dyspnea and respiratory abnormality documented in this encounter [facility] note* Diagnosis Generalized abdominal pain- Primary [...] and respiratory abnormality documented in this encounter [facility] note* Diagnosis Chronic systolic CHF (congestive heart failure) (HCC)- Primary Chronic systolic heart failure documented in this encounter [facility] note* Diagnosis Abdominal bloating Flatulence, eructation, and gas pain Belching Flatulence, eructation, and gas pain Abdominal pain, unspecified abdominal location documented in this encounter [facility] note* Diagnosis Diverticulosis- Primary Diverticulosis of colon (without mention of hemorrhage) History of Clostridium difficile colitis Personal history of other diseases of digestive system Abdominal bloating Flatulence, eructation, and gas pain documented in this encounter [facility] note* Diagnosis Hypothyroidism, unspecified type documented in this encounter [facility] note* Diagnosis Abdominal bloating- Primary Flatulence, eructation, and gas pain Belching Flatulence, eructation, and gas pain Abdominal pain, unspecified abdominal location [facility] Routine physical examination- Primary Routine general medical examination at a health care facility Primary hypertension Unspecified essential hypertension Mixed hyperlipidemia Coronary artery disease involving [place] coronary artery of [place] heart with other form of angina pectoris (HCC) Vitamin D deficiency Unspecified vitamin D deficiency Hypothyroidism, unspecified type [facility] Diagnosis Cardiomegaly- Primary Primary hypertension Unspecified essential hypertension Chronic diastolic congestive heart failure (HCC) Chronic diastolic heart failure Palpitations Acute on chronic systolic CHF (congestive heart failure) (HCC) Acute on chronic systolic heart failure [facility] Diagnosis Rib pain on right side- Primary Chest pain, unspecified Somatic dysfunction of spine, cervical Nonallopathic lesion of cervical region, not elsewhere classified Somatic dysfunction of rib Somatic dysfunction of spine, thoracic Nonallopathic lesion of thoracic region, not elsewhere classified [facility] Diagnosis Chronic right-sided thoracic back pain- Primary Somatic dysfunction of spine, cervical Nonallopathic lesion of cervical region, not elsewhere classified Somatic dysfunction of spine, thoracic Nonallopathic lesion of thoracic region, not elsewhere classified Somatic dysfunction of rib Rib pain on right side Chest pain, unspecified [facility] Diagnosis Hypothyroidism, unspecified type- Primary [...] screening for osteoporosis [facility] Diagnosis Hypothyroidism, unspecified type [facility] Diagnosis Chronic bilateral thoracic back [...] Palpitations Mixed hyperlipidemia [facility] Diagnosis Dysuria- Primary Urticaria Urticaria, [...] Palpitations Mixed hyperlipidemia [facility] Diagnosis Primary hypertension- Primary Unspecified essential hypertension Palpitations Mixed hyperlipidemia [facility] Diagnosis Chronic neck pain- Primary Cervicalgia Abdominal distension (gaseous) Flatulence, eructation, and gas pain Nausea Nausea alone RUQ abdominal pain Abdominal pain, right upper quadrant Somatic dysfunction of spine, cervical Nonallopathic lesion of cervical region, not elsewhere classified Somatic dysfunction of rib Somatic dysfunction of head region [facility] Diagnosis Chronic bilateral thoracic back pain- Primary Somatic dysfunction of spine, cervical Nonallopathic lesion of cervical region, not elsewhere classified Somatic dysfunction of rib Somatic dysfunction of head region Chronic neck pain Cervicalgia Somatic dysfunction of spine, thoracic Nonallopathic lesion of thoracic region, not elsewhere classified [facility] Diagnosis Acute cough- Primary Sore throat Acute pharyngitis [facility] Diagnosis Primary hypertension Unspecified essential hypertension [facility] Diagnosis Hypothyroidism, unspecified type- Primary Somatic dysfunction of spine, cervical Nonallopathic lesion of cervical region, not elsewhere classified Somatic dysfunction of rib Somatic dysfunction of head region Chronic bilateral thoracic back pain Chronic neck pain Cervicalgia Neck fullness Swelling, mass, or lump in head and neck [facility] Diagnosis Hypothyroidism, unspecified type [facility] Diagnosis Screening for osteoporosis Special screening for osteoporosis Asymptomatic menopause [facility] Diagnosis SOB (shortness of breath) Shortness of breath [facility] Diagnosis Abnormal electrocardiogram Nonspecific abnormal electrocardiogram (ECG) (EKG) LBBB (left bundle branch block) Other left bundle branch block [facility] Diagnosis Abdominal distension (gaseous) Flatulence, eructation, and gas pain Nausea Nausea alone RUQ abdominal pain Abdominal pain, right upper quadrant [facility] Diagnosis Primary hypertension Unspecified essential hypertension Chronic diastolic congestive heart failure (HCC) Chronic diastolic heart failure [facility] Diagnosis Chronic diastolic congestive heart failure [...] Primary hypercoagulable state [facility]* Diagnosis LBBB (left bundle branch block)- Primary Other left bundle branch block Presence of cardiac resynchronization therapy defibrillator (ENERGY AUDITOR-D) Acute on chronic systolic CHF (congestive heart failure) (HCC) Acute on chronic systolic heart failure [facility] Diagnosis Vagina, candidiasis- Primary Candidiasis of vulva and vagina Burning with urination Dysuria 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 Acute cough Laryngopharyngeal reflux (LPR) Other diseases of larynx [facility] Diagnosis Chronic systolic congestive heart failure (HCC)- Primary Chronic systolic heart failure Nonischemic cardiomyopathy (HCC) Other primary cardiomyopathies Mixed hyperlipidemia LBBB (left bundle branch block) Other left bundle branch block Presence of cardiac resynchronization therapy defibrillator (ENERGY AUDITOR-D) Primary hypertension Unspecified essential hypertension 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 Valvular heart disease Endocarditis, valve unspecified, unspecified cause [facility] noteNo assessment information availableWVan Wert [facility] Work Phone: Evaluation note* Diagnosis Foot pain, left- Primary Pain in limb Localized swelling of left foot Foot pain, left Pain in limb Localized swelling of left foot [facility] Diagnosis Repetitive stress injury- Primary Unspecified site of sprain and strain Venous insufficiency Unspecified venous (peripheral) insufficiency [facility] Diagnosis Repetitive stress injury Unspecified site of sprain and strain [facility] Diagnosis Acute on chronic systolic CHF [...] of left foot [facility] Diagnosis Hypothyroidism, acquired- Primary Unspecified [...] Diagnosis Presence of cardiac resynchronization therapy defibrillator (ENERGY AUDITOR-D)- Primary Non-ischemic cardiomyopathy (HCC) Other primary cardiomyopathies [...] not elsewhere classified [facility] Diagnosis Pre-op evaluation- Primary Preoperative examination, [...] not elsewhere classified [facility]* Diagnosis Pre-op evaluation- Primary Preoperative examination, [...] of left foot [facility]* Diagnosis Pre-op evaluation- Primary Preoperative examination, [...] Chronic cough Cough documented in this encounter [facility] note* Diagnosis Pre-op evaluation- Primary Preoperative [...] of head region [facility]* Diagnosis Pre-op evaluation- Primary Preoperative examination, [...] Other primary cardiomyopathies documented in this encounter [facility] note* Diagnosis Pre-op evaluation- Primary Preoperative [...] joint, upper arm documented in this encounter [facility] note* Diagnosis Pre-op evaluation- Primary Preoperative [...] of head region [facility]* Diagnosis Pre-op evaluation- Primary Preoperative examination, [...] 30-34.9 Obesity, unspecified [facility]* Diagnosis Great toe pain, left Pre-op [...] 30-34.9 Obesity, unspecified [facility]* Diagnosis Pre-op evaluation- Primary Preoperative examination, [...] bundle branch block 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 [facility]* Diagnosis Pre-op evaluation- Primary Preoperative examination, [...] not elsewhere classified [facility] Diagnosis Pre-op evaluation- Primary Preoperative examination, [...] not elsewhere classified [facility] Diagnosis Pre-op evaluation- Primary Preoperative examination, [...] of head region [facility] Diagnosis Pre-op evaluation- Primary Preoperative examination, [...] not elsewhere classified [facility] Diagnosis Pre-op evaluation- Primary Preoperative examination, [...] Other primary cardiomyopathies [facility]* Diagnosis Pre-op evaluation- Primary Preoperative examination, [...] unspecified Acute cough [facility]* Diagnosis Pre-op evaluation- Primary Preoperative examination, [...] vitamin D deficiency [facility]* Diagnosis Pre-op evaluation- Primary Preoperative examination, [...] not elsewhere classified [facility] Diagnosis Pre-op evaluation- Primary Preoperative examination, [...] of cardiac pacemaker documented in this encounter [facility] note* Diagnosis Pre-op evaluation- Primary Preoperative [...] of cardiac pacemaker [facility]* Diagnosis Pre-op evaluation- Primary Preoperative examination, [...] 30-34.9 Obesity, unspecified Cardiac resynchronization therapy defibrillator (ENERGY AUDITOR-D) in place- Primary documented in this encounter [facility] note* Diagnosis Pre-op evaluation- Primary Preoperative [...] 30-34.9 Obesity, unspecified Cardiac resynchronization therapy defibrillator (ENERGY AUDITOR-D) in place- Primary Chronic HFrEF (heart failure with reduced ejection fraction) (HCC) Medication management Encounter for long-term (current) use of other medications documented in this encounter [facility] note* Diagnosis Pre-op evaluation- Primary Preoperative [...] Other primary cardiomyopathies 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 Left bundle branch block Other left bundle branch block Cardiac resynchronization therapy defibrillator (ENERGY AUDITOR-D) in place documented in this encounter [facility] Discharge instructionsAdditional Instructions Use incentive spirometer [...] of any fluid is an option for this.[facility] Work Phone: Reason for referral (narrative)* Diagnostic Procedure Only (Routine) - Closed Specialty Diagnoses / Procedures Referred By Crissy kelley Referred To Contact [facility] Diagnoses Encounter for screening mammogram for breast cancer Procedures KARTHIK SCREENING SCREENING MAMMOGRAPHY BI 2-VIEW BREAST INC CAD Maycol Valladares MD [address] [place] [address] [facility] Imaging [address] [place] [address] Referral ID Status Reason Start Date Expiration Date V isits Requested Visits Authorized [id number] Closed Auto-Generate d Referral 07/01/2021 07/31/2022 1 1 [facility] for referral (narrative)* Diagnostic Procedure Only (Routine) - Closed Specialty Diagnoses / Procedures Referred By Crissy kelley Referred To Contact XR IMAGING Diagnoses Chronic left shoulder pain Left elbow pain Procedures XR SHOULDER LIMITED 2V AP/TRUE AP LEFT RADEX SHOULDER COMPLETE MINIMUM 2 VIEWS Alejandrina Harvey APRN.MEDICAL DEVICE SALES [address] [place] [address] Xr Imaging Referral ID Status Reason Start Date Expiration Date V isits Requested Visits Authorized [id number] Closed Auto-Generate d Referral 09/01/2021 10/01/2022 1 1 * Diagnostic Procedure Only (Routine) - Closed Specialty Diagnoses / Procedures Referred By Contac t Referred To Contact XR IMAGING Diagnoses Chronic left shoulder pain Left elbow pain Procedures XR ELBOW GENERAL 2V AP/LAT LEFT RADEX ELBOW 2 VIEWS Alejandrina Harvey APRN.CNP [address] [place] [address] Xr Imaging Referral ID Status Reason Start Date Expiration Date V isits Requested Visits Authorized [id number] Closed Auto-Generate d Referral 09/01/2021 10/01/2022 1 1 [facility] for referral (narrative)* Outpatient Procedure (Routine) - Closed Specialty Diagnoses / Procedures Referred By Contac t Referred To Contact [facility] Diagnoses Abdominal bloating Belching Abdominal pain, unspecified abdominal location Procedures EGD DIAGNOSTIC ESOPHAGOGASTRODUODENOSC OPY TRANSORAL DIAGNOSTIC Sincere Perkins PA-C [address] [place] [address] [facility] [address] [place] [address] Referral ID Status Reason Start Date Expiration Date V isits Requested Visits Authorized [id number] Closed Auto-Generate d Referral 11/02/2021 11/02/2022 1 1 * Outpatient Procedure (Routine) - Closed Specialty Diagnoses / Procedures Referred By Contac t Referred To Contact [facility] Diagnoses Abdominal bloating Belching Abdominal pain, unspecified abdominal location Procedures COLONOSCOPY DIAGNOSTIC COLONOSCOPY FLX DX W/COLLJ SPEC WHEN PFRMD Sincere Perkins PA-C [address] [place] [address] [facility] [address] [place] [address] Referral ID Status Reason Start Date Expiration Date V isits Requested Visits Authorized [id number] Closed Auto-Generate d Referral 11/02/2021 11/02/2022 1 1 [facility] for referral (narrative)* Outpatient Procedure (Routine) - Closed Specialty Diagnoses / Procedures Referred By Contac t Referred To Contact [facility] Diagnoses Abdominal bloating Belching Abdominal pain, unspecified abdominal location Procedures EGD DIAGNOSTIC ESOPHAGOGASTRODUODENOSC OPY TRANSORAL DIAGNOSTIC Sincere Perkins PA-C [address] [place] [address] [address] Referral ID Status Reason Start Date Expiration Date V isits Requested Visits Authorized [id number] Closed Auto-Generate d Referral 11/02/2021 11/02/2022 1 1 * Outpatient Procedure (Routine) - Closed Specialty Diagnoses / Procedures Referred By Contac t Referred To Contact [facility] Diagnoses Abdominal bloating Belching Abdominal pain, unspecified abdominal location Procedures COLONOSCOPY DIAGNOSTIC COLONOSCOPY FLX DX W/COLLJ SPEC WHEN PFRMD Sincere Perkins PA-C [address] [place] [address] [address] Referral ID Status Reason Start Date Expiration Date V isits Requested Visits Authorized [id number] Closed Auto-Generate d Referral 11/02/2021 11/02/2022 1 1 [facility] for referral (narrative)* Outpatient Procedure (Routine) - Authorized Specialty Diagnoses / Procedures Referred By Contac t Referred To [facility] Diagnoses Cardiomegaly Procedures ECHO ECHO TTHRC R-T 2D W/WOM-MODE COMPL SPEC&COLR D Santo Oneill MD [address] [place] [address] [facility] [address] [place] [address] Referral ID Status Reason Start Date Expiration Date Visits Requested Visits Authorized [id number] Authorized Auto-Generat ed Referral 02/13/2023 1 1 [facility] for referral (narrative)* Outpatient Procedure (Routine) - Closed Specialty Diagnoses / Procedures Referred By Contac t Referred To Contact [facility] Diagnoses Primary hypertension Palpitations Mixed hyperlipidemia Procedures ECG COMPLETE ECG ROUTINE ECG W/LEAST 12 LDS W/I&R Santo Oneill MD [address] [place] [address] [facility] [address] [place] [address] Referral ID Status Reason Start Date Expiration Date V isits Requested Visits Authorized [id number] Closed Auto-Generate d Referral 08/03/2022 08/03/2023 1 1 [facility] for referral (narrative)* Outpatient Procedure (Routine) - Pending Review Specialty Diagnoses / Procedures Referred By Contac t Referred To Contact [facility] Diagnoses LBBB (left bundle branch block) Presence of cardiac resynchronization therapy defibrillator (ENERGY AUDITOR-D) Acute on chronic systolic CHF (congestive heart failure) (HCC) Procedures ECG COMPLETE ECG ROUTINE ECG W/LEAST 12 LDS W/I&[place] [address] [place] [address] [address] Referral ID Status Reason Start Date Expiration Date Visits Requested Visits Authorized [id number] Pending Review Auto-Generat ed Referral 08/07/2023 08/06/2024 1 1 [facility] for referral (narrative)* Diagnostic Procedure Only (Urgent) - Closed Specialty Diagnoses / Procedures Referred By Contac t Referred To Contact XR IMAGING Diagnoses Foot pain, left Localized swelling of left foot Procedures XR FOOT GENERAL 3V AP/LAT/OBL LEFT RADEX FOOT COMPLETE MINIMUM 3 VIEWS Alejandrina Harvey APRN.CNP [address] [place] [address] [place] [address] Referral ID Status Reason Start Date Expiration Date V isits Requested Visits Authorized [id number] Closed Auto-Generate d Referral 09/13/2023 10/12/2024 1 1 [facility] for referral (narrative)* Diagnostic Procedure Only (Routine) - Closed Specialty Diagnoses / Procedures Referred By Contac t Referred To Contact XR IMAGING Diagnoses Repetitive stress injury Procedures XR FOOT GENERAL 3V AP/LAT/OBL LEFT RADEX FOOT COMPLETE MINIMUM 3 VIEWS Oliverio Mata [address] [place] [address] [place] [address] Referral ID Status Reason Start Date Expiration Date V isits Requested Visits Authorized [id number] Closed Auto-Generate d Referral 09/24/2023 10/23/2024 1 1 [facility] for referral (narrative)* Outpatient Procedure (Routine) - Pending Review Specialty Diagnoses / Procedures Referred By Contac t Referred [facility] Diagnoses Presence of cardiac resynchronization therapy defibrillator (ENERGY AUDITOR-D) Non-ischemic cardiomyopathy (HCC) LBBB (left bundle branch block) Procedures ECG COMPLETE ECG ROUTINE ECG W/LEAST 12 LDS W/I&R Mercedes Vera APRN.MEDICAL DEVICE SALES [address] [place] [address] [facility] [address] [facility] [place] [id number] Referral ID Status Reason Start Date Expiration Date Visits Requested Visits Authorized [id number] Pending Review Auto-Generat ed Referral 11/01/2023 10/31/2024 1 1 [facility] for referral (narrative)* Diagnostic Procedure Only (Routine) - Pending Review Specialty Diagnoses / Procedures Referred By Contac t Referred To Contact XR IMAGING Diagnoses Acute midline low back pain without sciatica Procedures XR LUMBAR GENERAL 3V AP/LAT/L5-S1 RADEX SPINE LUMBOSACRAL 2/3 VIEWS Mandeep Houser DO [address] [place] [address] [place] [address] Referral ID Status Reason Start Date Expiration Date Visits Requested Visits Authorized [id number] Pending Review Auto-Generat ed Referral 11/07/2023 12/06/2024 1 1 * Physical Therapy (Routine) - Authorized Specialty Diagnoses / Procedures Referred By Contac t Referred To Contact [facility] Diagnoses Acute midline low back pain without sciatica Procedures CONSULT TO PHYSICAL THERAPY PHYSICAL THERAPY EVALUATION HIGH COMPLEX 45 MINS Mandeep Houser DO [address] [place] [address] [facility] [address] [address] Referral ID Status Reason Start Date Expiration Date Visits Requested Visits Authorized [id number] Authorized PCP Requested Referral Auto-Generate d Referral 11/07/2023 11/06/2024 99 99 [facility] for referral (narrative)* Outpatient Procedure (Routine) - Closed Specialty Diagnoses / Procedures Referred By Contac t Referred To [facility] Diagnoses Chronic systolic congestive heart failure (HCC) Procedures ECHO ECHO TTHRC R-T 2D W/WOM-MODE COMPL SPEC&[place] [address] [place] [address] [facility] [address] [address] Referral ID Status Reason Start Date Expiration Date V isits Requested Visits Authorized [id number] Closed Auto-Generate d Referral 11/07/2023 08/06/2024 1 1 [facility] for referral (narrative)* Diagnostic Procedure Only (Urgent) - Closed Specialty Diagnoses / Procedures Referred By Contac t Referred To Contact XR IMAGING Diagnoses Foot pain, left Localized swelling of left foot Procedures XR FOOT GENERAL 3V AP/LAT/OBL LEFT RADEX FOOT COMPLETE MINIMUM 3 VIEWS Alejandrina Harvey APRN.MEDICAL DEVICE SALES [address] [place] [address] [place] [address] Referral ID Status Reason Start Date Expiration Date V isits Requested Visits Authorized [id number] Closed Auto-Generate d Referral 09/13/2023 10/12/2024 1 1 [facility] for referral (narrative)* Outpatient Procedure (Routine) - New Request Specialty Diagnoses / Procedures Referred By Contac t Referred To Contact [facility] [place] Diagnoses Nonischemic cardiomyopathy (HCC) Procedures ECHO ECHO TTHRC R-T 2D W/WOM-MODE COMPL SPEC&COLR Angel Benites DO [address] [place] [address] [facility] [address] [address] Referral ID Status Reason Start Date Expiration Date Visits Requested Visits Authorized [id number] New Request Auto-Generat ed Referral 08/06/2024 02/06/2025 1 1 [facility] for referral (narrative)* Diagnostic Procedure Only (Routine) - Closed Specialty Diagnoses / Procedures Referred By Contac t Referred To Contact XR IMAGING Diagnoses Chronic left shoulder pain Left elbow pain Procedures XR SHOULDER LIMITED 2V AP/TRUE AP LEFT RADEX SHOULDER COMPLETE MINIMUM 2 VIEWS Alejandrina Harvey APRN.MEDICAL DEVICE SALES [address] [place] [address] [place] [address] Referral ID Status Reason Start Date Expiration Date V isits Requested Visits Authorized [id number] Closed Auto-Generate d Referral 09/01/2021 10/01/2022 1 1 * Diagnostic Procedure Only (Routine) - Closed Specialty Diagnoses / Procedures Referred By Contac t Referred To Contact XR IMAGING Diagnoses Chronic left shoulder pain Left elbow pain Procedures XR ELBOW GENERAL 2V AP/LAT LEFT RADEX ELBOW 2 VIEWS Alejandrina Harvey APRN.MEDICAL DEVICE SALES [address] [place] [address] [place] [address] Referral ID Status Reason Start Date Expiration Date V isits Requested Visits Authorized [id number] Closed Auto-Generate d Referral 09/01/2021 10/01/2022 1 1 [facility] for referral (narrative)* Diagnostic Procedure Only (Routine) - Closed Specialty Diagnoses / Procedures Referred By Contac t Referred To Contact XR IMAGING Diagnoses Chronic pain of right ankle Procedures XR ANKLE GENERAL 3V AP/LAT/OBL RT X-RAY ANKLE MINIMUM 3 VIEWS Maycol Valladares MD [address] [place] [address] [place] [address] Referral ID Status Reason Start Date Expiration Date V isits Requested Visits Authorized [id number] Closed Auto-Generate d Referral 12/29/2020 01/28/2022 1 1 [facility] for referral (narrative)No reason for referral information [facility] Work Phone: Reason for visit Narrative* Diagnostic Procedure Only (Routine) - Closed Specialty Diagnoses / Procedures Referred By Crissy t Referred To Contact [facility] Diagnoses Encounter for screening mammogram for breast cancer Procedures KARTHIK SCREENING SCREENING MAMMOGRAPHY BI 2-VIEW BREAST INC CAD Valladares, Tereso, MD [address] [place] [address] [facility] [address] [place] [id number] Referral ID Status Reason Start Date Expiration Date V isits Requested Visits Authorized [id number] Closed Auto-Generate d Referral 07/01/2021 07/31/2022 1 1 [facility] for visit Narrative* Outpatient Procedure (Routine) - Closed Specialty Diagnoses / Procedures Referred By Gageac t Referred To Contact [facility] Diagnoses Abdominal bloating Belching Abdominal pain, unspecified abdominal location Procedures EGD DIAGNOSTIC ESOPHAGOGASTRODUODENOSC OPY TRANSORAL DIAGNOSTIC Sincere Perkins PA-C [address] [place] [address] [facility] [address] [address] Referral ID Status Reason Start Date Expiration Date V isits Requested Visits Authorized [id number] Closed Auto-Generate d Referral 11/02/2021 11/02/2022 1 1 [facility] for visit Narrative* Diagnostic Procedure Only (Routine) - Closed Specialty Diagnoses / Procedures Referred By Crissy t Referred To Contact XR IMAGING Diagnoses Repetitive stress injury Procedures XR FOOT GENERAL 3V AP/LAT/OBL LEFT RADEX FOOT COMPLETE MINIMUM 3 VIEWS Oliverio Mata [address] [place] [address] [place] [address] Referral ID Status Reason Start Date Expiration Date V isits Requested Visits Authorized [id number] Closed Auto-Generate d Referral 09/24/2023 10/23/2024 1 1 [facility] for visit Narrative* Outpatient Procedure (Routine) - Closed Specialty Diagnoses / Procedures Referred By Contac t Referred To [facility] Diagnoses Chronic systolic congestive heart failure (HCC) Procedures ECHO ECHO TTHRC R-T 2D W/WOM-MODE COMPL SPEC&[place] [address] [place] [address] [facility] [address] [place] [address] Referral ID Status Reason Start Date Expiration Date V isits Requested Visits Authorized [id number] Closed Auto-Generate d Referral 11/07/2023 08/06/2024 1 1 [facility] for visit Narrative* Diagnostic Procedure Only (Urgent) - Closed Specialty Diagnoses / Procedures Referred By Contac t Referred To Contact XR IMAGING Diagnoses Foot pain, left Localized swelling of left foot Procedures XR FOOT GENERAL 3V AP/LAT/OBL LEFT RADEX FOOT COMPLETE MINIMUM 3 VIEWS Alejandrina Harvey, CONDUIT BENDER.MEDICAL DEVICE SALES [address] [place] [address] [place] [address] Referral ID Status Reason Start Date Expiration Date V isits Requested Visits Authorized [id number] Closed Auto-Generate d Referral 09/13/2023 10/12/2024 1 1 [facility] for visit Narrative* Diagnostic Procedure Only (Routine) - Closed Specialty Diagnoses / Procedures Referred By Contac t Referred To Contact XR IMAGING Diagnoses Chronic left shoulder pain Left elbow pain Procedures XR SHOULDER LIMITED 2V AP/TRUE AP LEFT RADEX SHOULDER COMPLETE MINIMUM 2 VIEWS Alejandrina Harvey, CONDUIT BENDER.MEDICAL DEVICE SALES [address] [place] [address] [place] [address] Referral ID Status Reason Start Date Expiration Date V isits Requested Visits Authorized [id number] Closed Auto-Generate d Referral 09/01/2021 10/01/2022 1 1 [facility] for visit Narrative* Diagnostic Procedure Only (Routine) - Closed Specialty Diagnoses / Procedures Referred By Contac t Referred To Contact XR IMAGING Diagnoses Chronic pain of right ankle Procedures XR ANKLE GENERAL 3V AP/LAT/OBL RT X-RAY ANKLE MINIMUM 3 VIEWS Maycol Valladares MD [address] [place] [address] [place] [address] Referral ID Status Reason Start Date Expiration Date V isits Requested Visits Authorized [id number] Closed Auto-Generate d Referral 12/29/2020 01/28/2022 1 1 [facility] Summary Purpose Family History Grandmother Name Dates [...] Documents on File Type Date Recorded 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 Advance Directive(s) 03/18/2021 2:56 PM Advance Directive(s) 09/28/2020 8:38 PM Advance Directive(s) 09/07/2020 9:42 AM Advance Directive(s) 09/03/2020 2:04 PM Advance Directive(s) 05/30/2020 10:25 AM Advance Directive(s) 05/24/2020 10:03 AM Advance Directive(s) 05/03/2020 9:25 AM Advance Directive(s) 03/09/2020 8:13 AM Advance Directive(s) 03/09/2020 12:44 PM Documents on File Type Date Recorded 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 Advance Directive(s) 03/18/2021 2:56 PM Advance Directive(s) 09/28/2020 8:38 PM Advance Directive(s) 09/07/2020 9:42 AM Advance Directive(s) 09/03/2020 2:04 PM Advance Directive(s) 05/30/2020 10:25 AM Advance Directive(s) 05/24/2020 10:03 AM Advance Directive(s) 05/03/2020 9:25 AM Advance Directive(s) 03/09/2020 8:13 AM Advance Directive(s) 03/09/2020 12:44 PM Documents on File Type Date Recorded 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 Advance Directive(s) 11/21/2021 10:55 AM Advance Directive(s) 03/18/2021 2:56 PM Advance Directive(s) 09/28/2020 8:38 PM Advance Directive(s) 09/07/2020 9:42 AM Advance Directive(s) 09/03/2020 2:04 PM Advance Directive(s) 05/30/2020 10:25 AM Advance Directive(s) 05/24/2020 10:03 AM Advance Directive(s) 05/03/2020 9:25 AM Advance Directive(s) 03/09/2020 8:13 AM Advance Directive(s) 03/09/2020 12:44 PM Documents on File Type Date Recorded 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 Yes November 13, 2024 5:58pm Reason for Referral Specialty Diagnoses / Procedures Referred By Contac t Referred To Contact CT IMAGING Diagnoses Diverticulitis RLQ abdominal pain Lower abdominal pain Procedures CT ABD/PEL W IVCON CT ABD & PELVIS W/CONTRAST Alejandrina Harvey APRN.MEDICAL DEVICE SALES [address] [place] [address] Ct [facility] Referral ID Status Reason Start Date Expiration Date Visits Requested Visits Authorized [id number] Authorized Auto-Generat ed Referral 10/19/2021 11/18/2022 1 1 Referral ID Status Reason Start Date Expiration Date V isits Requested Visits Authorized [id number] Closed Auto-Generate d Referral 10/19/2021 11/18/2022 1 1 Specialty Diagnoses / Procedures Referred By Contac t Referred To Contact CT IMAGING Diagnoses Abdominal distension (gaseous) Nausea RUQ abdominal pain Procedures CT ABD/PEL W IVCON CT ABD & PELVIS W/CONTRAST Mandeep Houser, DO [address] [place] [address] Ct Imaging Referral ID Status Reason Start Date Expiration Date Visits Requested Visits Authorized [id number] Authorized Auto-Generat ed Referral 08/22/2022 09/21/2023 1 1 Specialty Diagnoses / Procedures Referred By Contac t Referred To Contact CT IMAG[facility] Diagnoses Abdominal distension (gaseous) Nausea RUQ abdominal pain Procedures CT ABD/PEL W IVCON CT ABD & PELVIS W/CONTRAST Mandeep Houser L, DO [address] [place] [address] [address] [facility] [place] [address] Referral ID Status Reason Start Date Expiration Date V isits Requested Visits Authorized [id number] Closed Auto-Generate d Referral 08/22/2022 09/21/2023 1 1 Specialty Diagnoses / Procedures Referred By Contac t Referred To Contact Diagnoses Acute on chronic systolic CHF (congestive heart failure) (HCC) Procedures CONSULT TO ELECTROPHYSIOLOGY OFFICE/OUTPATIENT NEW HIGH MDM 60-74 MINUTES Santo Oneill MD [address] [place] [address] Angel Gaxiola MD [address] [address] Referral ID Status Reason Start Date Expiration Date Visits Requested Visits Authorized [id number] Authorized PCP Requested Referral 04/16/2023 07/08/2023 1 1 Specialty Diagnoses / Procedures Referred By Contac t Referred [facility] Diagnoses Primary hypertension Procedures ECG COMPLETE ECG ROUTINE ECG W/LEAST 12 LDS W/I&R Santo Oneill MD [address] [place] [address] [facility] [address] [place] [address] Referral ID Status Reason Start Date Expiration Date Visits Requested Visits Authorized [id number] Pending Review Auto-Generat ed Referral 3 04/08/2024 1 1 Specialty Diagnoses / Procedures Referred By Contac t Referred To Contact CT IMAGING Diagnoses Word finding difficulty New onset of headaches after age [address] BRAIN WO IVCON CT HEAD/BRAIN W/O CONTRAST MATERIAL Mandeep Houser L, DO [address] [place] [address] [place] [address] Referral ID Status Reason Start Date Expiration Date Visits Requested Visits Authorized [id number] Authorized Auto-Generat ed Referral 10/31/2023 11/29/2024 1 1 Referral ID Status Reason Start Date Expiration Date V isits Requested Visits Authorized [id number] Closed Auto-Generate d Referral 10/31/2023 11/29/2024 1 1 Medications Administered Section Inactive Administered Medications - up to 3 most recent administrations Medication Order MAR Action Action Date Dose Rate Site benzocaine 20% 1 [place] (TOPEX) 1 [place], TOPICAL, ONCE, 1 dose, On Sun12/05/21 at 1030, 1 spray to the back of the throat prior to EGD - Pharmaceutical Waste: Aerosol -, Preprocedure Given 12/05/2021 9:50 AM EDT 1 [place] lactated ringers iv infusion 30 mL/hr, INTRAVENOUS, [...] section and content) DATE CREATED AUTHOR 02/21/2018 [facility] DATE CREATED AUTHOR AUTHOR'S ORGANIZ ATION 01/28/2019 [facility] DATE CREATED AUTHOR AUTHOR'S ORGANIZ ATION 02/09/2020 [facility] DATE CREATED AUTHOR AUTHOR'S ORGANIZ ATION 04/30/2020 [facility] DATE CREATED AUTHOR AUTHOR'S ORGANIZ ATION 01/11/2021 [facility] DATE CREATED AUTHOR AUTHOR'S ORGANIZ ATION 08/24/2023 [facility] DATE CREATED AUTHOR AUTHOR'S ORGANIZ ATION 11/03/2023 [facility] DATE CREATED AUTHOR AUTHOR'S ORGANIZ ATION 11/19/2023 [facility] DATE CREATED AUTHOR AUTHOR'S ORGANIZ ATION 04/26/2024 [facility] DATE CREATED AUTHOR AUTHOR'S ORGANIZ ATION 11/09/2024 [facility] Source Comments (unrecognize d section and content) In the event this informatio n is protected by the Federal Confidentiality of Alcohol and Drug Abuse Patient Records regulations: The Federal rules restrict any use of the information to criminally investigate or prosecute any alcohol or drug abuse patient.[facility] the event this information is protected by the Federal Confidentiality of Alcohol and Drug Abuse Patient Records regulations: The Federal rules restrict any use of the information to criminally investigate or prosecute any alcohol or drug abuse patient.[facility] the event this information is protected by the Federal Confidentiality of Alcohol and Drug Abuse Patient Records regulations: The Federal rules restrict any use of the information to criminally investigate or prosecute any alcohol or drug abuse patient.[facility] the event this information is protected by the Federal Confidentiality of Alcohol and Drug Abuse Patient Records regulations: The Federal rules restrict any use of the information to criminally investigate or prosecute any alcohol or drug abuse patient.[facility] Hospital[facility] the event this information is protected by the Federal Confidentiality of Alcohol and Drug Abuse Patient Records regulations: The Federal rules restrict any use of the information to criminally investigate or prosecute any alcohol or drug abuse patient.[facility] Hospital[facility] the event this information is protected by the Federal Confidentiality of Alcohol and Drug Abuse Patient Records regulations: The Federal rules restrict any use of the information to criminally investigate or prosecute any alcohol or drug abuse patient.[facility] Hospital[facility] the event this information is protected by the Federal Confidentiality of Alcohol and Drug Abuse Patient Records regulations: The Federal rules restrict any use of the information to criminally investigate or prosecute any alcohol or drug abuse patient.[facility] Hospital[facility] the event this information is protected by the Federal Confidentiality of Alcohol and Drug Abuse Patient Records regulations: The Federal rules restrict any use of the information to criminally investigate or prosecute any alcohol or drug abuse patient.[facility] HospitalIn the event this information is protected by the Federal Confidentiality of Alcohol and Drug Abuse Patient Records regulations: The Federal rules restrict any use of the information to criminally investigate or prosecute any alcohol or drug abuse patient.[facility] HospitalIn the event this information is protected by the Federal Confidentiality of Alcohol and Drug Abuse Patient Records regulations: The Federal rules restrict any use of the information to criminally investigate or prosecute any alcohol or drug abuse patient.[facility] HospitalIn the event this information is protected by the Federal Confidentiality of Alcohol and Drug Abuse Patient Records regulations: The Federal rules restrict any use of the information to criminally investigate or prosecute any alcohol or drug abuse patient.[facility] HospitalIn the event this information is protected by the Federal Confidentiality of Alcohol and Drug Abuse Patient Records regulations: The Federal rules restrict any use of the information to criminally investigate or prosecute any alcohol or drug abuse patient.[facility] HospitalIn the event this information is protected by the Federal Confidentiality of Alcohol and Drug Abuse Patient Records regulations: The Federal rules restrict any use of the information to criminally investigate or prosecute any alcohol or drug abuse patient.[facility] HospitalIn the event this information is protected by the Federal Confidentiality of Alcohol and Drug Abuse Patient Records regulations: The Federal rules restrict any use of the information to criminally investigate or prosecute any alcohol or drug abuse patient.[facility] HospitalIn the event this information is protected by the Federal Confidentiality of Alcohol and Drug Abuse Patient Records regulations: The Federal rules restrict any use of the information to criminally investigate or prosecute any alcohol or drug abuse patient.[facility] HospitalIn the event this information is protected by the Federal Confidentiality of Alcohol and Drug Abuse Patient Records regulations: The Federal rules restrict any use of the information to criminally investigate or prosecute any alcohol or drug abuse patient.[facility] HospitalIn the event this information is protected by the Federal Confidentiality of Alcohol and Drug Abuse Patient Records regulations: The Federal rules restrict any use of the information to criminally investigate or prosecute any alcohol or drug abuse patient.[facility] HospitalIn the event this information is protected by the Federal Confidentiality of Alcohol and Drug Abuse Patient Records regulations: The Federal rules restrict any use of the information to criminally investigate or prosecute any alcohol or drug abuse patient.[facility] HospitalIn the event this information is protected by the Federal Confidentiality of Alcohol and Drug Abuse Patient Records regulations: The Federal rules restrict any use of the information to criminally investigate or prosecute any alcohol or drug abuse patient.[facility] HospitalIn the event this information is protected by the Federal Confidentiality of Alcohol and Drug Abuse Patient Records regulations: The Federal rules restrict any use of the information to criminally investigate or prosecute any alcohol or drug abuse patient.[facility] HospitalIn the event this information is protected by the Federal Confidentiality of Alcohol and Drug Abuse Patient Records regulations: The Federal rules restrict any use of the information to criminally investigate or prosecute any alcohol or drug abuse patient.[facility] HospitalIn the event this information is protected by the Federal Confidentiality of Alcohol and Drug Abuse Patient Records regulations: The Federal rules restrict any use of the information to criminally investigate or prosecute any alcohol or drug abuse patient.[facility] HospitalIn the event this information is protected by the Federal Confidentiality of Alcohol and Drug Abuse Patient Records regulations: The Federal rules restrict any use of the information to criminally investigate or prosecute any alcohol or drug abuse patient.[facility] HospitalIn the event this information is protected by the Federal Confidentiality of Alcohol and Drug Abuse Patient Records regulations: The Federal rules restrict any use of the information to criminally investigate or prosecute any alcohol or drug abuse patient.[facility] HospitalIn the event this information is protected by the Federal Confidentiality of Alcohol and Drug Abuse Patient Records regulations: The Federal rules restrict any use of the information to criminally investigate or prosecute any alcohol or drug abuse patient.[facility] HospitalIn the event this information is protected by the Federal Confidentiality of Alcohol and Drug Abuse Patient Records regulations: The Federal rules restrict any use of the information to criminally investigate or prosecute any alcohol or drug abuse patient.[facility] HospitalIn the event this information is protected by the Federal Confidentiality of Alcohol and Drug Abuse Patient Records regulations: The Federal rules restrict any use of the information to criminally investigate or prosecute any alcohol or drug abuse patient.[facility] HospitalIn the event this information is protected by the Federal Confidentiality of Alcohol and Drug Abuse Patient Records regulations: The Federal rules restrict any use of the information to criminally investigate or prosecute any alcohol or drug abuse patient.[facility] HospitalIn the event this information is protected by the Federal Confidentiality of Alcohol and Drug Abuse Patient Records regulations: The Federal rules restrict any use of the information to criminally investigate or prosecute any alcohol or drug abuse patient.[facility] HospitalIn the event this information is protected by the Federal Confidentiality of Alcohol and Drug Abuse Patient Records regulations: The Federal rules restrict any use of the information to criminally investigate or prosecute any alcohol or drug abuse patient.[facility] HospitalIn the event this information is protected by the Federal Confidentiality of Alcohol and Drug Abuse Patient Records regulations: The Federal rules restrict any use of the information to criminally investigate or prosecute any alcohol or drug abuse patient.[facility] HospitalIn the event this information is protected by the Federal Confidentiality of Alcohol and Drug Abuse Patient Records regulations: The Federal rules restrict any use of the information to criminally investigate or prosecute any alcohol or drug abuse patient.[facility] HospitalIn the event this information is protected by the Federal Confidentiality of Alcohol and Drug Abuse Patient Records regulations: The Federal rules restrict any use of the information to criminally investigate or prosecute any alcohol or drug abuse patient.[facility] HospitalIn the event this information is protected by the Federal Confidentiality of Alcohol and Drug Abuse Patient Records regulations: The Federal rules restrict any use of the information to criminally investigate or prosecute any alcohol or drug abuse patient.[facility] HospitalIn the event this information is protected by the Federal Confidentiality of Alcohol and Drug Abuse Patient Records regulations: The Federal rules restrict any use of the information to criminally investigate or prosecute any alcohol or drug abuse patient.[facility] HospitalIn the event this information is protected by the Federal Confidentiality of Alcohol and Drug Abuse Patient Records regulations: The Federal rules restrict any use of the information to criminally investigate or prosecute any alcohol or drug abuse patient.[facility] HospitalIn the event this information is protected by the Federal Confidentiality of Alcohol and Drug Abuse Patient Records regulations: The Federal rules restrict any use of the information to criminally investigate or prosecute any alcohol or drug abuse patient.[facility] HospitalIn the event this information is protected by the Federal Confidentiality of Alcohol and Drug Abuse Patient Records regulations: The Federal rules restrict any use of the information to criminally investigate or prosecute any alcohol or drug abuse patient.[facility] HospitalIn the event this information is protected by the Federal Confidentiality of Alcohol and Drug Abuse Patient Records regulations: The Federal rules restrict any use of the information to criminally investigate or prosecute any alcohol or drug abuse patient.[facility] HospitalIn the event this information is protected by the Federal Confidentiality of Alcohol and Drug Abuse Patient Records regulations: The Federal rules restrict any use of the information to criminally investigate or prosecute any alcohol or drug abuse patient.[facility] HospitalIn the event this information is protected by the Federal Confidentiality of Alcohol and Drug Abuse Patient Records regulations: The Federal rules restrict any use of the information to criminally investigate or prosecute any alcohol or drug abuse patient.[facility] HospitalIn the event this information is protected by the Federal Confidentiality of Alcohol and Drug Abuse Patient Records regulations: The Federal rules restrict any use of the information to criminally investigate or prosecute any alcohol or drug abuse patient.[facility] HospitalIn the event this information is protected by the Federal Confidentiality of Alcohol and Drug Abuse Patient Records regulations: The Federal rules restrict any use of the information to criminally investigate or prosecute any alcohol or drug abuse patient.[facility] HospitalIn the event this information is protected by the Federal Confidentiality of Alcohol and Drug Abuse Patient Records regulations: The Federal rules restrict any use of the information to criminally investigate or prosecute any alcohol or drug abuse patient.[facility] HospitalIn the event this information is protected by the Federal Confidentiality of Alcohol and Drug Abuse Patient Records regulations: The Federal rules restrict any use of the information to criminally investigate or prosecute any alcohol or drug abuse patient.[facility] HospitalIn the event this information is protected by the Federal Confidentiality of Alcohol and Drug Abuse Patient Records regulations: The Federal rules restrict any use of the information to criminally investigate or prosecute any alcohol or drug abuse patient.[facility] HospitalIn the event this information is protected by the Federal Confidentiality of Alcohol and Drug Abuse Patient Records regulations: The Federal rules restrict any use of the information to criminally investigate or prosecute any alcohol or drug abuse patient.[facility] HospitalIn the event this information is protected by the Federal Confidentiality of Alcohol and Drug Abuse Patient Records regulations: The Federal rules restrict any use of the information to criminally investigate or prosecute any alcohol or drug abuse patient.[facility] HospitalIn the event this information is protected by the Federal Confidentiality of Alcohol and Drug Abuse Patient Records regulations: The Federal rules restrict any use of the information to criminally investigate or prosecute any alcohol or drug abuse patient.[facility] HospitalIn the event this information is protected by the Federal Confidentiality of Alcohol and Drug Abuse Patient Records regulations: The Federal rules restrict any use of the information to criminally investigate or prosecute any alcohol or drug abuse patient.[facility] HospitalIn the event this information is protected by the Federal Confidentiality of Alcohol and Drug Abuse Patient Records regulations: The Federal rules restrict any use of the information to criminally investigate or prosecute any alcohol or drug abuse patient.[facility] HospitalIn the event this information is protected by the Federal Confidentiality of Alcohol and Drug Abuse Patient Records regulations: The Federal rules restrict any use of the information to criminally investigate or prosecute any alcohol or drug abuse patient.[facility] HospitalIn the event this information is protected by the Federal Confidentiality of Alcohol and Drug Abuse Patient Records regulations: The Federal rules restrict any use of the information to criminally investigate or prosecute any alcohol or drug abuse patient.[facility] HospitalIn the event this information is protected by the Federal Confidentiality of Alcohol and Drug Abuse Patient Records regulations: The Federal rules restrict any use of the information to criminally investigate or prosecute any alcohol or drug abuse patient.[facility] HospitalIn the event this information is protected by the Federal Confidentiality of Alcohol and Drug Abuse Patient Records regulations: The Federal rules restrict any use of the information to criminally investigate or prosecute any alcohol or drug abuse patient.[facility] HospitalIn the event this information is protected by the Federal Confidentiality of Alcohol and Drug Abuse Patient Records regulations: The Federal rules restrict any use of the information to criminally investigate or prosecute any alcohol or drug abuse patient.[facility] HospitalIn the event this information is protected by the Federal Confidentiality of Alcohol and Drug Abuse Patient Records regulations: The Federal rules restrict any use of the information to criminally investigate or prosecute any alcohol or drug abuse patient.[facility] HospitalIn the event this information is protected by the Federal Confidentiality of Alcohol and Drug Abuse Patient Records regulations: The Federal rules restrict any use of the information to criminally investigate or prosecute any alcohol or drug abuse patient.[facility] HospitalIn the event this information is protected by the Federal Confidentiality of Alcohol and Drug Abuse Patient Records regulations: The Federal rules restrict any use of the information to criminally investigate or prosecute any alcohol or drug abuse patient.[facility] HospitalIn the event this information is protected by the Federal Confidentiality of Alcohol and Drug Abuse Patient Records regulations: The Federal rules restrict any use of the information to criminally investigate or prosecute any alcohol or drug abuse patient.[facility] HospitalIn the event this information is protected by the Federal Confidentiality of Alcohol and Drug Abuse Patient Records regulations: The Federal rules restrict any use of the information to criminally investigate or prosecute any alcohol or drug abuse patient.[facility] HospitalIn the event this information is protected by the Federal Confidentiality of Alcohol and Drug Abuse Patient Records regulations: The Federal rules restrict any use of the information to criminally investigate or prosecute any alcohol or drug abuse patient.[facility] HospitalIn the event this information is protected by the Federal Confidentiality of Alcohol and Drug Abuse Patient Records regulations: The Federal rules restrict any use of the information to criminally investigate or prosecute any alcohol or drug abuse patient.[facility] HospitalIn the event this information is protected by the Federal Confidentiality of Alcohol and Drug Abuse Patient Records regulations: The Federal rules restrict any use of the information to criminally investigate or prosecute any alcohol or drug abuse patient.[facility] HospitalIn the event this information is protected by the Federal Confidentiality of Alcohol and Drug Abuse Patient Records regulations: The Federal rules restrict any use of the information to criminally investigate or prosecute any alcohol or drug abuse patient.[facility] HospitalIn the event this information is protected by the Federal Confidentiality of Alcohol and Drug Abuse Patient Records regulations: The Federal rules restrict any use of the information to criminally investigate or prosecute any alcohol or drug abuse patient.[facility] HospitalIn the event this information is protected by the Federal Confidentiality of Alcohol and Drug Abuse Patient Records regulations: The Federal rules restrict any use of the information to criminally investigate or prosecute any alcohol or drug abuse patient.[facility] HospitalIn the event this information is protected by the Federal Confidentiality of Alcohol and Drug Abuse Patient Records regulations: The Federal rules restrict any use of the information to criminally investigate or prosecute any alcohol or drug abuse patient.[facility] HospitalIn the event this information is protected by the Federal Confidentiality of Alcohol and Drug Abuse Patient Records regulations: The Federal rules restrict any use of the information to criminally investigate or prosecute any alcohol or drug abuse patient.[facility] HospitalIn the event this information is protected by the Federal Confidentiality of Alcohol and Drug Abuse Patient Records regulations: The Federal rules restrict any use of the information to criminally investigate or prosecute any alcohol or drug abuse patient.[facility] HospitalIn the event this information is protected by the Federal Confidentiality of Alcohol and Drug Abuse Patient Records regulations: The Federal rules restrict any use of the information to criminally investigate or prosecute any alcohol or drug abuse patient.[facility] HospitalIn the event this information is protected by the Federal Confidentiality of Alcohol and Drug Abuse Patient Records regulations: The Federal rules restrict any use of the information to criminally investigate or prosecute any alcohol or drug abuse patient.[facility] HospitalIn the event this information is protected by the Federal Confidentiality of Alcohol and Drug Abuse Patient Records regulations: The Federal rules restrict any use of the information to criminally investigate or prosecute any alcohol or drug abuse patient.[facility] HospitalIn the event this information is protected by the Federal Confidentiality of Alcohol and Drug Abuse Patient Records regulations: The Federal rules restrict any use of the information to criminally investigate or prosecute any alcohol or drug abuse patient.[facility] HospitalIn the event this information is protected by the Federal Confidentiality of Alcohol and Drug Abuse Patient Records regulations: The Federal rules restrict any use of the information to criminally investigate or prosecute any alcohol or drug abuse patient.[facility] HospitalIn the event this information is protected by the Federal Confidentiality of Alcohol and Drug Abuse Patient Records regulations: The Federal rules restrict any use of the information to criminally investigate or prosecute any alcohol or drug abuse patient.[facility] HospitalIn the event this information is protected by the Federal Confidentiality of Alcohol and Drug Abuse Patient Records regulations: The Federal rules restrict any use of the information to criminally investigate or prosecute any alcohol or drug abuse patient.[facility] HospitalIn the event this information is protected by the Federal Confidentiality of Alcohol and Drug Abuse Patient Records regulations: The Federal rules restrict any use of the information to criminally investigate or prosecute any alcohol or drug abuse patient.[facility] HospitalIn the event this information is protected by the Federal Confidentiality of Alcohol and Drug Abuse Patient Records regulations: The Federal rules restrict any use of the information to criminally investigate or prosecute any alcohol or drug abuse patient.[facility] HospitalIn the event this information is protected by the Federal Confidentiality of Alcohol and Drug Abuse Patient Records regulations: The Federal rules restrict any use of the information to criminally investigate or prosecute any alcohol or drug abuse patient.[facility]In the event this information is protected by the Federal Confidentiality of Alcohol and Drug Abuse Patient Records regulations: The Federal rules restrict any use of the information to criminally investigate or prosecute any alcohol or drug abuse patient.[facility] HospitalIn the event this information is protected by the Federal Confidentiality of Alcohol and Drug Abuse Patient Records regulations: The Federal rules restrict any use of the information to criminally investigate or prosecute any alcohol or drug abuse patient.[facility]In the event this information is protected by the Federal Confidentiality of Alcohol and Drug Abuse Patient Records regulations: The Federal rules restrict any use of the information to criminally investigate or prosecute any alcohol or drug abuse patient.[facility] HospitalIn the event this information is protected by the Federal Confidentiality of Alcohol and Drug Abuse Patient Records regulations: The Federal rules restrict any use of the information to criminally investigate or prosecute any alcohol or drug abuse patient.[facility] HospitalIn the event this information is protected by the Federal Confidentiality of Alcohol and Drug Abuse Patient Records regulations: The Federal rules restrict any use of the information to criminally investigate or prosecute any alcohol or drug abuse patient.[facility]In the event this information is protected by the Federal Confidentiality of Alcohol and Drug Abuse Patient Records regulations: The Federal rules restrict any use of the information to criminally investigate or prosecute any alcohol or drug abuse patient.[facility] HospitalIn the event this information is protected by the Federal Confidentiality of Alcohol and Drug Abuse Patient Records regulations: The Federal rules restrict any use of the information to criminally investigate or prosecute any alcohol or drug abuse patient.[facility] HospitalIn the event this information is protected by the Federal Confidentiality of Alcohol and Drug Abuse Patient Records regulations: The Federal rules restrict any use of the information to criminally investigate or prosecute any alcohol or drug abuse patient.[facility] HospitalIn the event this information is protected by the Federal Confidentiality of Alcohol and Drug Abuse Patient Records regulations: The Federal rules restrict any use of the information to criminally investigate or prosecute any alcohol or drug abuse patient.[facility]In the event this information is protected by the Federal Confidentiality of Alcohol and Drug Abuse Patient Records regulations: The Federal rules restrict any use of the information to criminally investigate or prosecute any alcohol or drug abuse patient.[facility] HospitalIn the event this information is protected by the Federal Confidentiality of Alcohol and Drug Abuse Patient Records regulations: The Federal rules restrict any use of the information to criminally investigate or prosecute any alcohol or drug abuse patient.[facility] HospitalIn the event this information is protected by the Federal Confidentiality of Alcohol and Drug Abuse Patient Records regulations: The Federal rules restrict any use of the information to criminally investigate or prosecute any alcohol or drug abuse patient.[facility] HospitalIn the event this information is protected by the Federal Confidentiality of Alcohol and Drug Abuse Patient Records regulations: The Federal rules restrict any use of the information to criminally investigate or prosecute any alcohol or drug abuse patient.[facility] HospitalIn the event this information is protected by the Federal Confidentiality of Alcohol and Drug Abuse Patient Records regulations: The Federal rules restrict any use of the information to criminally investigate or prosecute any alcohol or drug abuse patient.[facility] HospitalIn the event this information is protected by the Federal Confidentiality of Alcohol and Drug Abuse Patient Records regulations: The Federal rules restrict any use of the information to criminally investigate or prosecute any alcohol or drug abuse patient.[facility] HospitalIn the event this information is protected by the Federal Confidentiality of Alcohol and Drug Abuse Patient Records regulations: The Federal rules restrict any use of the information to criminally investigate or prosecute any alcohol or drug abuse patient.[facility] HospitalIn the event this information is protected by the Federal Confidentiality of Alcohol and Drug Abuse Patient Records regulations: The Federal rules restrict any use of the information to criminally investigate or prosecute any alcohol or drug abuse patient.[facility] HospitalIn the event this information is protected by the Federal Confidentiality of Alcohol and Drug Abuse Patient Records regulations: The Federal rules restrict any use of the information to criminally investigate or prosecute any alcohol or drug abuse patient.[facility] HospitalIn the event this information is protected by the Federal Confidentiality of Alcohol and Drug Abuse Patient Records regulations: The Federal rules restrict any use of the information to criminally investigate or prosecute any alcohol or drug abuse patient.[facility] HospitalIn the event this information is protected by the Federal Confidentiality of Alcohol and Drug Abuse Patient Records regulations: The Federal rules restrict any use of the information to criminally investigate or prosecute any alcohol or drug abuse patient.[facility] HospitalIn the event this information is protected by the Federal Confidentiality of Alcohol and Drug Abuse Patient Records regulations: The Federal rules restrict any use of the information to criminally investigate or prosecute any alcohol or drug abuse patient.[facility] HospitalIn the event this information is protected by the Federal Confidentiality of Alcohol and Drug Abuse Patient Records regulations: The Federal rules restrict any use of the information to criminally investigate or prosecute any alcohol or drug abuse patient.[facility] HospitalIn the event this information is protected by the Federal Confidentiality of Alcohol and Drug Abuse Patient Records regulations: The Federal rules restrict any use of the information to criminally investigate or prosecute any alcohol or drug abuse patient.[facility] HospitalIn the event this information is protected by the Federal Confidentiality of Alcohol and Drug Abuse Patient Records regulations: The Federal rules restrict any use of the information to criminally investigate or prosecute any alcohol or drug abuse patient.[facility] HospitalIn the event this information is protected by the Federal Confidentiality of Alcohol and Drug Abuse Patient Records regulations: The Federal rules restrict any use of the information to criminally investigate or prosecute any alcohol or drug abuse patient.[facility] HospitalIn the event this information is protected by the Federal Confidentiality of Alcohol and Drug Abuse Patient Records regulations: The Federal rules restrict any use of the information to criminally investigate or prosecute any alcohol or drug abuse patient.[facility] HospitalIn the event this information is protected by the Federal Confidentiality of Alcohol and Drug Abuse Patient Records regulations: The Federal rules restrict any use of the information to criminally investigate or prosecute any alcohol or drug abuse patient.[facility] HospitalIn the event this information is protected by the Federal Confidentiality of Alcohol and Drug Abuse Patient Records regulations: The Federal rules restrict any use of the information to criminally investigate or prosecute any alcohol or drug abuse patient.[facility] HospitalIn the event this information is protected by the Federal Confidentiality of Alcohol and Drug Abuse Patient Records regulations: The Federal rules restrict any use of the information to criminally investigate or prosecute any alcohol or drug abuse patient.[facility] HospitalIn the event this information is protected by the Federal Confidentiality of Alcohol and Drug Abuse Patient Records regulations: The Federal rules restrict any use of the information to criminally investigate or prosecute any alcohol or drug abuse patient.[facility] HospitalIn the event this information is protected by the Federal Confidentiality of Alcohol and Drug Abuse Patient Records regulations: The Federal rules restrict any use of the information to criminally investigate or prosecute any alcohol or drug abuse patient.[facility] HospitalIn the event this information is protected by the Federal Confidentiality of Alcohol and Drug Abuse Patient Records regulations: The Federal rules restrict any use of the information to criminally investigate or prosecute any alcohol or drug abuse patient.[facility] HospitalIn the event this information is protected by the Federal Confidentiality of Alcohol and Drug Abuse Patient Records regulations: The Federal rules restrict any use of the information to criminally investigate or prosecute any alcohol or drug abuse patient.[facility] HospitalIn the event this information is protected by the Federal Confidentiality of Alcohol and Drug Abuse Patient Records regulations: The Federal rules restrict any use of the information to criminally investigate or prosecute any alcohol or drug abuse patient.[facility] HospitalIn the event this information is protected by the Federal Confidentiality of Alcohol and Drug Abuse Patient Records regulations: The Federal rules restrict any use of the information to criminally investigate or prosecute any alcohol or drug abuse patient.[facility] HospitalIn the event this information is protected by the Federal Confidentiality of Alcohol and Drug Abuse Patient Records regulations: The Federal rules restrict any use of the information to criminally investigate or prosecute any alcohol or drug abuse patient.[facility] HospitalIn the event this information is protected by the Federal Confidentiality of Alcohol and Drug Abuse Patient Records regulations: The Federal rules restrict any use of the information to criminally investigate or prosecute any alcohol or drug abuse patient.[facility] HospitalIn the event this information is protected by the Federal Confidentiality of Alcohol and Drug Abuse Patient Records regulations: The Federal rules restrict any use of the information to criminally investigate or prosecute any alcohol or drug abuse patient.[facility] HospitalIn the event this information is protected by the Federal Confidentiality of Alcohol and Drug Abuse Patient Records regulations: The Federal rules restrict any use of the information to criminally investigate or prosecute any alcohol or drug abuse patient.[facility] HospitalIn the event this information is protected by the Federal Confidentiality of Alcohol and Drug Abuse Patient Records regulations: The Federal rules restrict any use of the information to criminally investigate or prosecute any alcohol or drug abuse patient.[facility] HospitalIn the event this information is protected by the Federal Confidentiality of Alcohol and Drug Abuse Patient Records regulations: The Federal rules restrict any use of the information to criminally investigate or prosecute any alcohol or drug abuse patient.[facility] HospitalIn the event this information is protected by the Federal Confidentiality of Alcohol and Drug Abuse Patient Records regulations: The Federal rules restrict any use of the information to criminally investigate or prosecute any alcohol or drug abuse patient.[facility] HospitalIn the event this information is protected by the Federal Confidentiality of Alcohol and Drug Abuse Patient Records regulations: The Federal rules restrict any use of the information to criminally investigate or prosecute any alcohol or drug abuse patient.[facility] HospitalIn the event this information is protected by the Federal Confidentiality of Alcohol and Drug Abuse Patient Records regulations: The Federal rules restrict any use of the information to criminally investigate or prosecute any alcohol or drug abuse patient.[facility] HospitalIn the event this information is protected by the Federal Confidentiality of Alcohol and Drug Abuse Patient Records regulations: The Federal rules restrict any use of the information to criminally investigate or prosecute any alcohol or drug abuse patient.[facility] HospitalIn the event this information is protected by the Federal Confidentiality of Alcohol and Drug Abuse Patient Records regulations: The Federal rules restrict any use of the information to criminally investigate or prosecute any alcohol or drug abuse patient.[facility] HospitalIn the event this information is protected by the Federal Confidentiality of Alcohol and Drug Abuse Patient Records regulations: The Federal rules restrict any use of the information to criminally investigate or prosecute any alcohol or drug abuse patient.[facility] HospitalIn the event this information is protected by the Federal Confidentiality of Alcohol and Drug Abuse Patient Records regulations: The Federal rules restrict any use of the information to criminally investigate or prosecute any alcohol or drug abuse patient.[facility] HospitalIn the event this information is protected by the Federal Confidentiality of Alcohol and Drug Abuse Patient Records regulations: The Federal rules restrict any use of the information to criminally investigate or prosecute any alcohol or drug abuse patient.[facility] HospitalIn the event this information is protected by the Federal Confidentiality of Alcohol and Drug Abuse Patient Records regulations: The Federal rules restrict any use of the information to criminally investigate or prosecute any alcohol or drug abuse patient.[facility] HospitalIn the event this information is protected by the Federal Confidentiality of Alcohol and Drug Abuse Patient Records regulations: The Federal rules restrict any use of the information to criminally investigate or prosecute any alcohol or drug abuse patient.[facility] HospitalIn the event this information is protected by the Federal Confidentiality of Alcohol and Drug Abuse Patient Records regulations: The Federal rules restrict any use of the information to criminally investigate or prosecute any alcohol or drug abuse patient.[facility] HospitalIn the event this information is protected by the Federal Confidentiality of Alcohol and Drug Abuse Patient Records regulations: The Federal rules restrict any use of the information to criminally investigate or prosecute any alcohol or drug abuse patient.[facility] HospitalIn the event this information is protected by the Federal Confidentiality of Alcohol and Drug Abuse Patient Records regulations: The Federal rules restrict any use of the information to criminally investigate or prosecute any alcohol or drug abuse patient.[facility] HospitalIn the event this information is protected by the Federal Confidentiality of Alcohol and Drug Abuse Patient Records regulations: The Federal rules restrict any use of the information to criminally investigate or prosecute any alcohol or drug abuse patient.[facility] HospitalIn the event this information is protected by the Federal Confidentiality of Alcohol and Drug Abuse Patient Records regulations: The Federal rules restrict any use of the information to criminally investigate or prosecute any alcohol or drug abuse patient.[facility] Reason for Visit (unrecogniz ed section and content) Reason Comments PT Discharge Specialty Diagnoses / Procedures Referred By Contac t Referred To Contact [facility] Diagnoses Left shoulder pain, unspecified chronicity Lateral epicondylitis of left elbow Procedures CONSULT TO PHYSICAL THERAPY PHYSICAL THERAPY EVALUATION HIGH COMPLEX 45 MINS Maycol Valladares MD [address] [place] [address] [facility] [address] [place] [address] Referral ID Status Reason Start Date Expiration Date Visits Requested Visits Authorized [id number] Authorized PCP Requested Referral Auto-Generate d Referral [...] & PELVIS W/CONTRAST Alejandrina Harvey APRN.CNP [address] [place] [address] Ct Imaging Referral ID Status Reason Start Date Expiration Date V isits Requested Visits Authorized [id number] Closed Auto-Generate d Referral 10/19/2021 11/18/2022 1 [...] & PELVIS W/CONTRAST Mandeep Houser DO [address] [place] [address] [place] [id number] Referral ID Status Reason Start Date Expiration Date V isits Requested Visits Authorized [id number] Closed Auto-Generate d Referral 08/22/2022 09/21/2023 1 [...] HEAD/BRAIN W/O CONTRAST MATERIAL Mandeep Houser DO [address] [place] [address] [place] [address] Referral ID Status Reason Start Date Expiration Date V isits Requested Visits Authorized [id number] Closed Auto-Generate d Referral 10/31/2023 11/29/2024 1 1 Reason Comments Appointment OMT Reason Comments Results CT Brain 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 Reason Comments Transition Of Care Reason Comments omt Reason Comments OMT Reason Comments CARD Follow Up 3 Month PMH: non-ischemic CM, HTN, Hypothyroidism, LBBB s/p ENERGY AUDITOR-D Reason Comments Establish Care 5 mos follow [...] Care Teams (unrecognized sec tion and content) Public Works Supervisor Relationship Specialty Start Date End Date Macyol Valladares MD [address] [place] [address] PCP - General Internal Medicine 06/14/20 Galen Heaton MD [address] [place] [address] Primary Staff Physician Cardiology 07/30/18 Public Works Supervisor Relationship Specialty Start Date End Date Maycol Valladares MD [address] [place] [address] PCP - General Internal Medicine 06/14/20 Galen Heaton MD [address] [place] [address] Primary Staff Physician Cardiology 07/30/18 Public Works Supervisor Relationship Specialty Start Date End Date Maycol Valladares MD [address] [place] [address] PCP - General Internal Medicine 06/14/20 Galne Heaton MD [address] [place] [address] Primary Staff Physician Cardiology 07/30/18 Public Works Supervisor Relationship Specialty Start Date End Date Maycol Valladares MD [address] [place] [address] PCP - General Internal Medicine 06/14/20 Galen Heaton MD [address] [place] [address] Primary Staff Physician Cardiology 07/30/18 Public Works Supervisor Relationship Specialty Start Date End Date Mandeep Houser, DO [address] [place] [address] PCP - General Family Practice 09/01/21 Galen Heaton MD [address] [place] [address] Primary Staff Physician Cardiology 07/30/18 Public Works Supervisor Relationship Specialty Start Date End Date Mandeep Houser, DO [address] [place] [address] PCP - General Family Practice 09/01/21 Galen Heaton MD [address] [place] [address] Primary Staff Physician Cardiology 07/30/18 Public Works Supervisor Relationship Specialty Start Date End Date Mandeep Houser, DO [address] [place] [address] PCP - General Family Practice 09/01/21 Galen Heaton MD [address] [place] [address] Primary Staff Physician Cardiology 07/30/18 Public Works Supervisor Relationship Specialty Start Date End Date Mandeep Houser, DO [address] [place] [address] PCP - General Family Practice 09/01/21 Galen Heaton MD [address] [place] [address] Primary Staff Physician Cardiology 07/30/18 Public Works Supervisor Relationship Specialty Start Date End Date Maycol Valladares MD [address] [place] [address] PCP - General Internal Medicine 06/14/20 08/31/21 Mandeep Houser, DO [address] [place] [place] [address] PCP - General Family Practice 09/01/21 Galen Heaton MD [address] [place] [address] Primary Staff Physician Cardiology 07/30/18 Public Works Supervisor Relationship Specialty Start Date End Date Mandeep Houser, DO [address] [place] [address] PCP - General Family Practice 09/01/21 Galen Heaton MD [address] [facility] [place] [address] Primary Staff Physician Cardiology 07/30/18 Public Works Supervisor Relationship Specialty Start Date End Date Mandeep Houser, DO [address] [place] [address] PCP - General Family Practice 09/01/21 Galen Heaton MD [address] [facility] [place] [address] Primary Staff Physician Cardiology 07/30/18 Public Works Supervisor Relationship Specialty Start Date End Date Mandeep Houser, DO [address] [place] [address] PCP - General Family Practice 09/01/21 Galen Heaton MD [address] [place] [address] Primary Staff Physician Cardiology 07/30/18 Public Works Supervisor Relationship Specialty Start Date End Date Mandeep Houser, DO [address] [place] [address] PCP - General Family Practice 09/01/21 Galen Heaton MD [address] [place] [address] Primary Staff Physician Cardiology 07/30/18 Public Works Supervisor Relationship Specialty Start Date End Date Mandeep Houser, DO [address] [place] [address] PCP - General Family Practice 09/01/21 Galen Heaton MD [address] [place] [address] Primary Staff Physician Cardiology 07/30/18 Public Works Supervisor Relationship Specialty Start Date End Date Mandeep Houser, DO [address] [facility] [place] [address] PCP - General Family Practice 09/01/21 Galen Heaton MD [address] [place] [address] Primary Staff Physician Cardiology 07/30/18 Public Works Supervisor Relationship Specialty Start Date End Date Mandeep Houser, DO [address] [place] [address] PCP - General Family Practice 09/01/21 Galen Heaton MD [address] [place] [address] Primary Staff Physician Cardiology 07/30/18 Public Works Supervisor Relationship Specialty Start Date End Date Mandeep Houser, DO [address] [place] [address] PCP - General Family Practice 09/01/21 Galen Heaton MD [address] [place] [address] Primary Staff Physician Cardiology 07/30/18 Public Works Supervisor Relationship Specialty Start Date End Date Mandeep Houser, DO [address] [facility] [place] [address] PCP - General Family Practice 09/01/21 Galen Heaton MD [address] [place] [address] Primary Staff Physician Cardiology 07/30/18 Public Works Supervisor Relationship Specialty Start Date End Date Mandeep Houser, DO [address] [facility] [place] [address] PCP - General Family Practice 09/01/21 Galen Heaton MD [address] [place] [address] Primary Staff Physician Cardiology 07/30/18 Public Works Supervisor Relationship Specialty Start Date End Date Mandeep Houser, DO [address] [place] [address] PCP - General Family Practice 09/01/21 Galen Heaton MD [address] [place] [address] Primary Staff Physician Cardiology 07/30/18 Public Works Supervisor Relationship Specialty Start Date End Date Mandeep Houser, DO [address] [place] [address] PCP - General Family Practice 09/01/21 Galen Heaton MD [address] [place] [address] Primary Staff Physician Cardiology 07/30/18 Public Works Supervisor Relationship Specialty Start Date End Date Mandeep Houser, DO [address] [place] [address] PCP - General Family Practice 09/01/21 Galen Heaton MD [address] [place] [address] Primary Staff Physician Cardiology 07/30/18 Public Works Supervisor Relationship Specialty Start Date End Date Mandeep Houser, DO [address] [place] [address] PCP - General Family Medicine 09/01/21 Galen Heaton MD [address] [place] [address] Primary Staff Physician Cardiology 07/30/18 Public Works Supervisor Relationship Specialty Start Date End Date Mandeep Houser, DO [address] [place] [address] PCP - General Family Medicine 09/01/21 Galen Heaton MD [address] [place] [address] Primary Staff Physician Cardiology 07/30/18 Public Works Supervisor Relationship Specialty Start Date End Date Mandeep Houser, DO [address] [place] [address] PCP - General Family Medicine 09/01/21 Galen Heaton MD [address] [place] [address] Primary Staff Physician Cardiology 07/30/18 Public Works Supervisor Relationship Specialty Start Date End Date Mandeep Houser, DO [address] [place] [address] PCP - General Family Medicine 09/01/21 Galen Heaton MD [address] [place] [address] Primary Staff Physician Cardiology 07/30/18 Public Works Supervisor Relationship Specialty Start Date End Date Mandeep Houser, DO [address] [place] [address] PCP - General Family Medicine 09/01/21 Galen Heaton MD [address] [facility] [place] [address] Primary Staff Physician Cardiology 07/30/18 Public Works Supervisor Relationship Specialty Start Date End Date Mandeep Houser, DO [address] [place] [address] PCP - General Family Medicine 09/01/21 Galen Heaton MD [address] [place] [address] Primary Staff Physician Cardiology 07/30/18 Public Works Supervisor Relationship Specialty Start Date End Date Mandeep Houser, DO [address] [place] [address] PCP - General Family Medicine 09/01/21 Galen Heaton MD [address] [place] [address] Primary Staff Physician Cardiology 07/30/18 Public Works Supervisor Relationship Specialty Start Date End Date Mandeep Houser, DO [address] [place] [address] PCP - General Family Medicine 09/01/21 Galen Heaton MD [address] [place] [address] Primary Staff Physician Cardiology 07/30/18 Public Works Supervisor Relationship Specialty Start Date End Date Mandeep Houser, DO [address] [place] [address] PCP - General Family Medicine 09/01/21 Galen Heaton MD [address] [place] [address] Primary Staff Physician Cardiology 07/30/18 Public Works Supervisor Relationship Specialty Start Date End Date Mandeep Houser, DO [address] [place] [address] PCP - General Family Medicine 09/01/21 Galen Heaton MD [address] [place] [address] Primary Staff Physician Cardiology 07/30/18 Public Works Supervisor Relationship Specialty Start Date End Date Mandeep Houser, DO [address] [place] [address] PCP - General Family Medicine 09/01/21 Galen Heaton MD [address] [place] [address] Primary Staff Physician Cardiology 07/30/18 Public Works Supervisor Relationship Specialty Start Date End Date Mandeep Houser, DO [address] [place] [address] PCP - General Family Medicine 09/01/21 Galen Heaton MD [address] [place] [address] Primary Staff Physician Cardiology 07/30/18 Public Works Supervisor Relationship Specialty Start Date End Date Mandeep Houser DO [address] [place] [address] PCP - General Family Medicine 09/01/21 Galen Heaton MD [address] [place] [address] Primary Staff Physician Cardiology 07/30/18 Public Works Supervisor Relationship Specialty Start Date End Date Mandeep Houser DO [address] [place] [address] PCP - General Family Medicine 09/01/21 Galen Heaton MD [address] [place] [address] Primary Staff Physician Cardiology 07/30/18 Public Works Supervisor Relationship Specialty Start Date End Date Manedep Houser DO [address] [place] [address] PCP - General Family Medicine 09/01/21 Galen Heaton MD [address] [place] [address] Primary Staff Physician Cardiology 07/30/18 Public Works Supervisor Relationship Specialty Start Date End Date Mandeep Houser DO [address] [place] [address] PCP - General Family Medicine 09/01/21 Galen Heaton MD [address] [place] [address] Primary Staff Physician Cardiology 07/30/18 Public Works Supervisor Relationship Specialty Start Date End Date Mandeep Houser DO [address] [place] [address] PCP - General Family Medicine 09/01/21 Galen Heaton MD [address] [place] [address] Primary Staff Physician Cardiology 07/30/18 Public Works Supervisor Relationship Specialty Start Date End Date Mandeep Houser DO [address] [place] [address] PCP - General Family Medicine 09/01/21 Galen Heaton MD [address] [place] [address] Primary Staff Physician Cardiology 07/30/18 Public Works Supervisor Relationship Specialty Start Date End Date Mandeep Houser DO [address] [place] [address] PCP - General Family Medicine 09/01/21 Galen Heaton MD [address] [place] [address] Primary Staff Physician Cardiology 07/30/18 Public Works Supervisor Relationship Specialty Start Date End Date Rafael Frank III [address] [phone] PCP - General Family Medicine 09/02/12 05/23/20 Galen Heaton MD [address] [place] [address] Primary Staff Physician Cardiology 07/30/18 Public Works Supervisor Relationship Specialty Start Date End Date Mandeep Houser DO [address] [place] [address] PCP - General Family Medicine 09/01/21 Galen Heaton MD [address] [place] [address] Primary Staff Physician Cardiology 07/30/18 Public Works Supervisor Relationship Specialty Start Date End Date Rafael Frank LISA [address] [phone] PCP - General Family Medicine 09/02/12 05/23/20 Galen Heaton MD [address] [place] [address] Primary Staff Physician Cardiology 07/30/18 Public Works Supervisor Relationship Specialty Start Date End Date Mandeep Houser DO [address] [place], [place] [address] PCP - General Family Medicine 09/01/21 Galen Heaton MD [address] [place] [address] Primary Staff Physician Cardiology 07/30/18 Public Works Supervisor Relationship Specialty Start Date End Date Mandeep Houser DO [address] [place] [address] PCP - General Family Medicine 09/01/21 Galen Heaton MD [address] [place], [place] [address] Primary Staff Physician Cardiology 07/30/18 Public Works Supervisor Relationship Specialty Start Date End Date Mandeep Houser DO [address] [place] [address] PCP - General Family Medicine 09/01/21 Galen Heaton MD [address] [place] [address] Primary Staff Physician Cardiology 07/30/18 Public Works Supervisor Relationship Specialty Start Date End Date Mandeep Houser DO [address] [place] [address] PCP - General Family Medicine 09/01/21 Galen Heaton MD [address] [place], [place] [address] [phone] Primary Staff Physician Cardiology 07/30/18 Public Works Supervisor Relationship Specialty Start Date End Date Mandeep Houser DO [address] [place] [address] PCP - General Family Medicine 09/01/21 Galen Heaton MD [address] [place] [address] Primary Staff Physician Cardiology 07/30/18 Public Works Supervisor Relationship Specialty Start Date End Date Mandeep Houser DO [address] [place] [address] PCP - General Family Medicine 09/01/21 Galen Heaton MD [address] [place] [address] Primary Staff Physician Cardiology 07/30/18 Public Works Supervisor Relationship Specialty Start Date End Date Mandeep Houser DO [address] [place] [address] PCP - General Family Medicine 09/01/21 Galen Heaton MD [address] [place] [address] Primary Staff Physician Cardiology 07/30/18 Public Works Supervisor Relationship Specialty Start Date End Date Mandeep Houser DO [address] [place] [address] PCP - General Family Medicine 09/01/21 Galen Heaton MD [address] [place] [address] Primary Staff Physician Cardiology 07/30/18 Fitz Mcqueen RN [address] [place] [address] Primary Care Plasterer Tender Internal Medicine 07/19/23 Public Works Supervisor Relationship Specialty Start Date End Date Mandeep Houser DO [address] [place] [address] PCP - General Family Medicine 09/01/21 Galen Heaton MD [address] [place] [address] Primary Staff Physician Cardiology 07/30/18 Fitz Mcqueen RN [address] [facility] [place] [address] Primary Care Plasterer Tender Internal Medicine 07/19/23 Public Works Supervisor Relationship Specialty Start Date End Date Mandeep Houser DO [address] [place] [address] PCP - General Family Medicine 09/01/21 Galen Heaton MD [address] [place] [address] Primary Staff Physician Cardiology 07/30/18 Fitz Mcqueen RN [address] [place] [address] Primary Care Plasterer Tender Internal Medicine 07/19/23 Public Works Supervisor Relationship Specialty Start Date End Date Mandeep Houser DO [address] [place] [address] PCP - General Family Medicine 09/01/21 Galen Heaton MD [address] [place] [address] Primary Staff Physician Cardiology 07/30/18 Fitz Mcqueen RN [address] [place] [address] Primary Care Plasterer Tender Internal Medicine 07/19/23 Public Works Supervisor Relationship Specialty Start Date End Date Mandeep Houser DO [address] [place] [address] PCP - General Family Medicine 09/01/21 Galen Heaton MD [address] [facility] [place] [address] Primary Staff Physician Cardiology 07/30/18 Fitz Mcqueen RN [address] [place] [address] Primary Care Plasterer Tender Internal Medicine 07/19/23 Public Works Supervisor Relationship Specialty Start Date End Date Mandeep Houser DO [address] [place] [address] PCP - General Family Medicine 09/01/21 Galen Heaton MD [address] [place] [address] Primary Staff Physician Cardiology 07/30/18 Public Works Supervisor Relationship Specialty Start Date End Date Mandeep Houser DO [address] [place] [address] PCP - General Family Medicine 09/01/21 Galen Heaton MD [address] [facility] [place] [address] Primary Staff Physician Cardiology 07/30/18 Public Works Supervisor Relationship Specialty Start Date End Date Mandeep Houser DO [address] [place] [address] PCP - General Family Medicine 09/01/21 Galen Heaton MD [address] [place] [address] Primary Staff Physician Cardiology 07/30/18 Thuy Aguirre, CONDUIT BENDER.MEDICAL DEVICE SALES [address] [place] [address] Cardiology 09/05/23 Team Status: Active Member Role [...] ALEJANDRE Attending Provider, Referring Provider Ac tive Public Works Supervisor Relationship Specialty Start Date End Date Mandeep Houser DO [address] [place] [address] PCP - General Family Medicine 09/01/21 Galen Heaton MD [address] [place] [address] Primary Staff Physician Cardiology 07/30/18 Thuy Aguirre, CONDUIT BENDER.MEDICAL DEVICE SALES [address] [place] [address] Cardiology 09/05/23 Public Works Supervisor Relationship Specialty Start Date End Date Mandeep Houser DO [address] [place] [address] PCP - General Family Medicine 09/01/21 Galen Heaton MD [address] [place] [address] Primary Staff Physician Cardiology 07/30/18 Thuy Aguirre, CONDUIT BENDER.MEDICAL DEVICE SALES [address] [place] [address] Cardiology 09/05/23 Public Works Supervisor Relationship Specialty Start Date End Date Mandeep Houser DO [address] [place] [address] PCP - General Family Medicine 09/01/21 Galen Heaton MD [address] [place] [address] Primary Staff Physician Cardiology 07/30/18 Thuy Aguirre, CONDUIT BENDER.MEDICAL DEVICE SALES [address] [place] [address] Cardiology 09/05/23 Public Works Supervisor Relationship Specialty Start Date End Date Mandeep Houser DO [address] [place] [address] PCP - General Family Medicine 09/01/21 Galen Heaton MD [address] [place] [address] Primary Staff Physician Cardiology 07/30/18 Thuy Aguirre, CONDUIT BENDER.MEDICAL DEVICE SALES [address] [place] [address] Cardiology 09/05/23 Public Works Supervisor Relationship Specialty Start Date End Date Mandeep Houser DO [address] [place] [address] PCP - General Family Medicine 09/01/21 Galen Heaton MD [address] [place] [address] Primary Staff Physician Cardiology 07/30/18 Thuy Aguirre, CONDUIT BENDER.MEDICAL DEVICE SALES [address] [place] [address] Cardiology 09/05/23 Public Works Supervisor Relationship Specialty Start Date End Date Mandeep Houser DO [address] [place] [address] PCP - General Family Medicine 09/01/21 Galen Heaton MD [address] [place] [address] Primary Staff Physician Cardiology 07/30/18 Thuy Aguirre, CONDUIT BENDER.MEDICAL DEVICE SALES [address] [place] [address] Cardiology 09/05/23 Public Works Supervisor Relationship Specialty Start Date End Date Mandeep Houser DO [address] [place] [address] PCP - General Family Medicine 09/01/21 Galen Heaton MD [address] [place] [address] Primary Staff Physician Cardiology 07/30/18 Thuy Aguirre, CONDUIT BENDER.MEDICAL DEVICE SALES [address] [place] [address] Cardiology 09/05/23 Public Works Supervisor Relationship Specialty Start Date End Date Mandeep Houser DO [address] [place] [address] PCP - General Family Medicine 09/01/21 Galen Heaton MD [address] [place] [address] Primary Staff Physician Cardiology 07/30/18 Thuy Aguirre, CONDUIT BENDER.MEDICAL DEVICE SALES [address] [place] [address] Cardiology 09/05/23 Public Works Supervisor Relationship Specialty Start Date End Date Mandeep Houser DO [address] [place] [address] PCP - General Family Medicine 09/01/21 Galen Heaton MD [address] [place] [address] Primary Staff Physician Cardiology 07/30/18 Thuy Aguirre, CONDUIT BENDER.MEDICAL DEVICE SALES [address] [place] [address] Cardiology 09/05/23 Public Works Supervisor Relationship Specialty Start Date End Date Mandeep Houser DO [address] [place] [address] PCP - General Family Medicine 09/01/21 Galen Heaton MD [address] [place] [address] Primary Staff Physician Cardiology 07/30/18 Thuy Aguirre, CONDUIT BENDER.MEDICAL DEVICE SALES [address] [place] [address] Cardiology 09/05/23 Public Works Supervisor Relationship Specialty Start Date End Date Mandeep Houser DO [address] [place] [address] PCP - General Family Medicine 09/01/21 Galen Heaton MD [address] [place] [address] Primary Staff Physician Cardiology 07/30/18 Thuy Aguirre, CONDUIT BENDER.MEDICAL DEVICE SALES [address] [place] [address] Cardiology 09/05/23 Public Works Supervisor Relationship Specialty Start Date End Date Mandeep Houser DO [address] [place] [address] PCP - General Family Medicine 09/01/21 Galen Heaton MD [address] [place] [address] Primary Staff Physician Cardiology 07/30/18 Thuy Aguirre, CONDUIT BENDER.MEDICAL DEVICE SALES [address] [place] [address] Cardiology 09/05/23 Public Works Supervisor Relationship Specialty Start Date End Date Mandeep Houser DO [address] [place] [address] PCP - General Family Medicine 09/01/21 Galen Heaton MD [address] [place] [address] Primary Staff Physician Cardiology 07/30/18 Thuy Aguirre, CONDUIT BENDER.MEDICAL DEVICE SALES [address] [place] [address] Cardiology 09/05/23 Public Works Supervisor Relationship Specialty Start Date End Date Mandeep Houser DO [address] [place] [address] PCP - General Family Medicine 09/01/21 Galen Heaton MD [address] [place] [address] Primary Staff Physician Cardiology 07/30/18 Thuy Aguirre, CONDUIT BENDER.MEDICAL DEVICE SALES [address] [place] [address] Cardiology 09/05/23 Public Works Supervisor Relationship Specialty Start Date End Date Mandeep Housre DO [address] [place] [address] PCP - General Family Medicine 09/01/21 Galen Heaton MD [address] [place] [address] Primary Staff Physician Cardiology 07/30/18 Thuy Aguirre, CONDUIT BENDER.MEDICAL DEVICE SALES [address] [place] [address] Cardiology 09/05/23 ProviderUvaldo MD Production Truck Driver 11/18/23 12/01/23 Public Works Supervisor Relationship Specialty Start Date End Date Mandeep Houser DO [address] [place] [address] PCP - General Family Medicine 09/01/21 Galen Heaton MD [address] [place] [address] Primary Staff Physician Cardiology 07/30/18 Thuy Aguirre, CONDUIT BENDER.MEDICAL DEVICE SALES [address] [place] [address] Cardiology 09/05/23 Public Works Supervisor Relationship Specialty Start Date End Date Mandeep Houser DO [address] [place] [address] PCP - General Family Medicine 09/01/21 Galen Heaton MD [address] [place] [address] Primary Staff Physician Cardiology 07/30/18 Thuy Aguirre CONDUIT BENDER.MEDICAL DEVICE SALES [address] [place] [address] Cardiology 09/05/23 Public Works Supervisor Relationship Specialty Start Date End Date Mandeep Houser DO [address] [place] [address] PCP - General Family Medicine 09/01/21 Galen Heaton MD [address] [place] [address] Primary Staff Physician Cardiology 07/30/18 Thuy Aguirre, CONDUIT BENDER.MEDICAL DEVICE SALES [address] [place] [address] Cardiology 09/05/23 Public Works Supervisor Relationship Specialty Start Date End Date Mandeep Houser DO [address] [place] [address] PCP - General Family Medicine 09/01/21 Galen Heaton MD [address] [place] [address] Primary Staff Physician Cardiology 07/30/18 Public Works Supervisor Relationship Specialty Start Date End Date Mandeep Houser DO [address] [place] [address] PCP - General Family Medicine 09/01/21 Galen Heaton MD [address] [place] [address] Primary Staff Physician Cardiology 07/30/18 Thuy Aguirre, CONDUIT BENDER.MEDICAL DEVICE SALES [address] [place] [address] Cardiology 09/05/23 Public Works Supervisor Relationship Specialty Start Date End Date Mandeep Houser DO [address] [place] [address] PCP - General Family Medicine 09/01/21 Galen Heaton MD [address] [place], [place] [address] Primary Staff Physician Cardiology 07/30/18 Thuy Aguirre, CONDUIT BENDER.MEDICAL DEVICE SALES [address] [place], [place] [id number] Cardiology 09/05/23 Public Works Supervisor Relationship Specialty Start Date End Date Mandeep Houser DO [address] [place] [address] PCP - General Family Medicine 09/01/21 Galen Heaton MD [address] [place], [place] [address] Primary Staff Physician Cardiology 07/30/18 Public Works Supervisor Relationship Specialty Start Date End Date Mandeep Houser DO [address] [place] [address] PCP - General Family Medicine 09/01/21 Galen Heaton MD [address] [place] [address] Primary Staff Physician Cardiology 07/30/18 Thuy Aguirre, CONDUIT BENDER.MEDICAL DEVICE SALES [address] [place], [place] [id number] Cardiology 09/05/23 Public Works Supervisor Relationship Specialty Start Date End Date Maycol Valladares MD [address] [place] [address] PCP - General Internal Medicine 06/14/20 08/31/21 Galen Heaton MD [address] [place] [address] Primary Staff Physician Cardiology 07/30/18 Public Works Supervisor Relationship Specialty Start Date End Date Maycol Valladares MD [address] [place] [address] PCP - General Internal Medicine 06/14/20 08/31/21 Galen Heaton MD [address] [place] [address] Primary Staff Physician Cardiology 07/30/18 Public Works Supervisor Relationship Specialty Start Date End Date Mandeep Houser DO [address] [place] [address] PCP - General Family Medicine 09/01/21 Galen Heaton MD [address] [place] [address] Primary Staff Physician Cardiology 07/30/18 Thuy Aguirre, CONDUIT BENDER.MEDICAL DEVICE SALES [address] [place] [address] Cardiology 09/05/23 Public Works Supervisor Relationship Specialty Start Date End Date Mandeep Houser DO [address] [place] [address] PCP - General Family Medicine 09/01/21 Galen Heaton MD [address] [place] [address] Primary Staff Physician Cardiology 07/30/18 Thuy Aguirre, CONDUIT BENDER.MEDICAL DEVICE SALES [address] [place] [address] Cardiology 09/05/23 Public Works Supervisor Relationship Specialty Start Date End Date Mandeep Houser DO [address] [place] [address] PCP - General Family Medicine 09/01/21 Galen Heaton MD [address] [place] [address] Primary Staff Physician Cardiology 07/30/18 Thuy Aguirre, CONDUIT BENDER.MEDICAL DEVICE SALES [address] [place] [address] Cardiology 09/05/23 Public Works Supervisor Relationship Specialty Start Date End Date Mandeep Houser DO [address] [place] [address] PCP - General Family Medicine 09/01/21 Galen Heaton MD [address] [place] [address] Primary Staff Physician Cardiology 07/30/18 Thuy Aguirre, CONDUIT BENDER.MEDICAL DEVICE SALES [address] [place] [address] Cardiology 09/05/23 Public Works Supervisor Relationship Specialty Start Date End Date Mandeep Houser DO [address] [place] [address] PCP - General Family Medicine 09/01/21 Galen Heaton MD [address] [place] [address] Primary Staff Physician Cardiology 07/30/18 Thuy Aguirre, CONDUIT BENDER.MEDICAL DEVICE SALES [address] [place] [address] Cardiology 09/05/23 Rupali Nascimento, CONDUIT BENDER.MEDICAL DEVICE SALES [address] [place] [address] Production Truck Driver Family Medicine 04/20/24 [facility], CONDUIT BENDER.MEDICAL DEVICE SALES [address] [place] [address] Production Truck Driver Family Medicine 04/20/24 Public Works Supervisor Relationship Specialty Start Date End Date Mandeep Houser DO [address] [place] [address] PCP - General Family Medicine 09/01/21 Galen Heaton MD [address] [place] [address] Primary Staff Physician Cardiology 07/30/18 Thuy Aguirre, CONDUIT BENDER.MEDICAL DEVICE SALES [address] [place] [address] Cardiology 09/05/23 Rupali Nascimento, CONDUIT BENDER.MEDICAL DEVICE SALES [address] [place] [address] Production Truck Driver Family Medicine 04/20/24 [facility], CONDUIT BENDER.MEDICAL DEVICE SALES [address] [place] [address] Production Truck Driver Family Medicine 04/20/24 Public Works Supervisor Relationship Specialty Start Date End Date Mandeep Houser DO [address] [place] [address] PCP - General Family Medicine 09/01/21 Galen Heaton MD [address] [place] [address] Primary Staff Physician Cardiology 07/30/18 Thuy Aguirre CONDUIT BENDER.MEDICAL DEVICE SALES [address] [place] [address] Cardiology 09/05/23 Rupali Nascimento CONDUIT BENDER.MEDICAL DEVICE SALES [address] [place] [address] Production Truck Driver Family Medicine 04/20/24 Alejandrina Harvey APRN.MEDICAL DEVICE SALES [address] [place] [address] Production Truck Driver Family Medicine 04/20/24 Public Works Supervisor Relationship Specialty Start Date End Date Mandeep Houser DO [address] [place] [address] PCP - General Family Medicine 09/01/21 Galen Heaton MD [address] [place] [address] Primary Staff Physician Cardiology 07/30/18 Thuy Aguirre CONDUIT BENDER.MEDICAL DEVICE SALES [address] [place] [address] Cardiology 09/05/23 Rupali Nascimento CONDUIT BENDER.MEDICAL DEVICE SALES [address] [place] [address] Production Truck Driver Family Medicine 04/20/24 Alejandrina Harvey CONDUIT BENDER.MEDICAL DEVICE SALES [address] [place] [address] Production Truck Driver Family Medicine 04/20/24 Public Works Supervisor Relationship Specialty Start Date End Date Mandeep Houser DO [address] [place] [address] PCP - General Family Medicine 09/01/21 Galen Heaton MD [address] [place] [address] Primary Staff Physician Cardiology 07/30/18 Thuy Aguirre, CONDUIT BENDER.MEDICAL DEVICE SALES [address] [place], [place] [id number] Cardiology 09/05/23 Rupali Nascimento, CONDUIT BENDER.MEDICAL DEVICE SALES [address] [place] [address] Production Truck Driver Family Medicine 04/20/24 Alejandrina Harvey, CONDUIT BENDER.MEDICAL DEVICE SALES [address] [place] [address] Production Truck Driver Family [facility] 04/20/24 Public Works Supervisor Relationship Specialty Start Date End Date Mandeep Houser DO [address] [place] [address] PCP - General Family Medicine 09/01/21 Galen Heaton MD [address] [place] [address] Primary Staff Physician Cardiology 07/30/18 Thuy Aguirre, CONDUIT BENDER.MEDICAL DEVICE SALES [address] [place], [place] [id number] Cardiology 09/05/23 Rupali Nascimento, CONDUIT BENDER.MEDICAL DEVICE SALES [address] [place] [address] [facility] 04/20/24 Alejandrina Harevy, CONDUIT BENDER.MEDICAL DEVICE SALES [address] [place] [address] [facility] 04/20/24 Public Works Supervisor Relationship Specialty Start Date End Date Mandeep Houser DO [address] [place] [address] PCP - General Family Medicine 09/01/21 Galen Heaton MD [address] [place], [place] [address] Primary Staff Physician Cardiology 07/30/18 Thuy Aguirre, CONDUIT BENDER.MEDICAL DEVICE SALES [address] [place], [place] [id number] Cardiology 09/05/23 Rupali Nascimento, CONDUIT BENDER.MEDICAL DEVICE SALES [address] [place] [address] [facility] 04/20/24 Alejandrina Harvey, CONDUIT BENDER.MEDICAL DEVICE SALES [address] [place] [address] [facility] 04/20/24 Public Works Supervisor Relationship Specialty Start Date End Date Mandeep Houser DO [address] [place] [address] PCP - General Family Medicine 09/01/21 Galen Heaton MD [address] [place], [place] [address] Primary Staff Physician Cardiology 07/30/18 Thuy Aguirre, CONDUIT BENDER.MEDICAL DEVICE SALES [address] [place] [address] Cardiology 09/05/23 Alejandrina Harvey, CONDUIT BENDER.MEDICAL DEVICE SALES [address] [place] [address] [facility] 04/20/24 Public Works Supervisor Relationship Specialty Start Date End Date Mandeep Houser DO [address] [place] [address] PCP - General Family Medicine 09/01/21 Galen Heaton MD [address] [place] [address] Primary Staff Physician Cardiology 07/30/18 Thuy Aguirre, CONDUIT BENDER.MEDICAL DEVICE SALES [address] [place] [address] Cardiology 09/05/23 Alejandrina Harvey, CONDUIT BENDER.MEDICAL DEVICE SALES [address] [place] [address] [facility] 04/20/24 Public Works Supervisor Relationship Specialty Start Date End Date Mandeep Houser DO [address] [place] [address] PCP - General Family Medicine 09/01/21 Galen Heaton MD [address] [place] [address] Primary Staff Physician Cardiology 07/30/18 Thuy Aguirre CONDUIT BENDER.MEDICAL DEVICE SALES [address] [place] [address] Cardiology 09/05/23 Alejandrina Harvey, CONDUIT BENDER.MEDICAL DEVICE SALES [address] [place] [address] Production Truck Driver Family Medicine 04/20/24 Public Works Supervisor Relationship Specialty Start Date End Date Mandeep Houser DO [address] [place] [address] PCP - General Family Medicine 09/01/21 Galen Heaton MD [address] [place] [address] Primary Staff Physician Cardiology 07/30/18 Thuy Aguirre, CONDUIT BENDER.MEDICAL DEVICE SALES [address] [place], [place] [id number] Cardiology 09/05/23 Alejandrina Harvey, CONDUIT BENDER.MEDICAL DEVICE SALES [address] [place] [address] Production Truck Driver [facility] 04/20/24 Public Works Supervisor Relationship Specialty Start Date End Date Mandeep Houser DO [address] [place] [address] PCP - General Family Medicine 09/01/21 Galen Heaton MD [address] [place] [address] Primary Staff Physician Cardiology 07/30/18 Thuy Aguirre, CONDUIT BENDER.MEDICAL DEVICE SALES [address] [place], [place] [id number] Cardiology 09/05/23 Alejandrina Harvey, CONDUIT BENDER.MEDICAL DEVICE SALES [address] [place] [address] Production Truck Driver Family Medicine 04/20/24 Public Works Supervisor Relationship Specialty Start Date End Date Mandeep Houser DO [address] [place] [address] PCP - General Family Medicine 09/01/21 Galen Heaton MD [address] [place] [address] Primary Staff Physician Cardiology 07/30/18 Thuy Aguirre, CONDUIT BENDER.MEDICAL DEVICE SALES [address] [place], [place] [id number] Cardiology 09/05/23 Alejandrina Harvey, CONDUIT BENDER.MEDICAL DEVICE SALES [facility] [place] [address] Production Truck Driver Family Medicine 04/20/24 Brittani Yap, CONDUIT BENDER.MEDICAL DEVICE SALES [facility] [place] [address] Production Truck Driver Family Medicine 10/27/24 Public Works Supervisor Relationship Specialty Start Date End Date Mandeep Houser DO [address] [place] [address] PCP - General Family Medicine 09/01/21 Galen Heaton MD [address] [place] [address] Primary Staff Physician Cardiology 07/30/18 Thuy Aguirre CONDUIT BENDER.MEDICAL DEVICE SALES [address] [place], [place] [id number] Cardiology 09/05/23 Alejandrina Harvey, CONDUIT BENDER.MEDICAL DEVICE SALES [address] [place] [address] Production Truck Driver Family Medicine 04/20/24 Brittani Yap, CONDUIT BENDER.MEDICAL DEVICE SALES [address] [place], [place] [address] [facility] 10/27/24 Public Works Supervisor Relationship Specialty Start Date End Date Mandeep Houser DO [address] [place] [address] PCP - General Family Medicine 09/01/21 Galen Heaton MD [address] [place] [address] Primary Staff Physician Cardiology 07/30/18 Thuy Aguirre, CONDUIT BENDER.MEDICAL DEVICE SALES [address] [place], [place] [id number] Cardiology 09/05/23 Alejandrina Harvey, CONDUIT BENDER.MEDICAL DEVICE SALES [address] [place] [address] [facility] 04/20/24 Brittani Yap, CONDUIT BENDER.MEDICAL DEVICE SALES [address] [place], [place] [address] [facility] 10/27/24 Team Status: Active Member Role/Relationship Status Dates Dr. Mandeep Houser [...] BE BASED ON THE PRIMARY CLINICAL RECORDS. [facility] [employer] [facility]. provides no warranty or guarantee of the accuracy or completeness of information in this document.
[2024-11-14 01:41] LABS: Troponin T High Sensitivity 20 ng/L (<=14)
--- NOTE | 2024-11-14 01:48 | EKG12_ITS ---
Test Reason : SYNCOPE Blood Pressure : */* mmHG Vent. Rate : 49 BPM Atrial Rate : 49 BPM P-R Int : 120 ms QRS Dur : 122 ms QT Int : 520 ms P-R-T Axes : 42 -64 1 degrees QTcB Int : 469 ms Atrial-sensed ventricular-paced rhythm Abnormal ECG Confirmed by CATRACHITO BRYAN, FORTINO ([id number]), legal editor SINCERE HINSON ([id number]) on 11/17/2024 9:36:13 AM Referred By: BEVERLY Confirmed By: FORTINO WINSTON MD
--- NOTE | 2024-11-14 01:48 | EKG12_ITS ---
Test Reason : SYNCOPE Blood Pressure : */* mmHG Vent. Rate : 49 BPM Atrial Rate : 49 BPM P-R Int : 120 ms QRS Dur : 122 ms QT Int : 520 ms P-R-T Axes : 42 -64 1 degrees QTcB Int : 469 ms Atrial-sensed ventricular-paced rhythm Abnormal ECG Confirmed by CATRACHITO BRYAN, FORTINO ([id number]), editor managing newspaper SINCERE HINSON ([id number]) on 11/17/2024 9:36:13 AM Referred By: BEVERLY Confirmed By: FORTINO WINSTON MD
--- NOTE | 2024-11-14 02:02 | EDS_ITS ---
HPI History of Present Illness Chief Complaint: Syncope Detail of Chief Complaint: Diaphoresis and near syncope Informant: patient and family Onset/Context/Timing Onset: Hours (Approximately 1 hour prior to presentation) Context: Sudden Onset Timing: Intermittent Quality: Diaphoresis, pallor and near syncope Location: Patient was at home Current Severity: Mild Maximum Severity: Severe Worsened by: Nothing per patient and family Relieved by: Not applicable Associated Symptoms Associated Symptoms: Does complain of some mild shortness of breath. Denies chest discomfort. Narrative Narrative: Patient is a 79-year-old woman. According to her nurse she was discharged 1.5 hours prior to repeat evaluation for diaphoresis and near syncope. She was seen for fall. She had an extensive workup which was unremarkable. The ER note was reviewed. The laboratory results and CAT scan was reviewed as well. Patient is complaining of left-sided chest pain. She had left-sided chest pain apparently prior to discharge. Prior to discharge she received Zofran and ODT 4 mg tablet and oxycodone 5 mg. She required assistance to get to the car. Family got her into her home. Patient became diaphoretic pale and had a near syncopal. She denies abdominal pain, hematemesis or coffee-ground emesis. Denies black or maroon-colored stool. Nurse informed me that there may be an issue with her pacemaker and heart rate was in the 40s. In light of this information an order was placed to interrogate the pacemaker. Prior similar symptoms: No Recent Illness/Hospitalization: Yes [facility] Medical History Obesity Former tobacco use Hyperlipidemia HFrEF (heart failure with reduced ejection fraction) Presence of combination internal cardiac defibrillator (ICD) and pacemaker Hypertension Home Medications ?Medication ?Instructions ?Recorded ?Last Taken ?Type aspirin 81 mg tablet,delayed 81 mg PO DAILY 03/27/24 U nknown History release (Adult Aspirin Regimen) furosemide 20 mg tablet 20 mg PO DAILY 03/27/24 Unkn own History losartan 25 mg tablet 25 mg PO DAILY 03/27/24 Unkn own History metoprolol succinate 25 mg 25 mg PO QHS 03/27/24 Unkno wn History tablet,extended release 24 hr ondansetron 8 mg disintegrating 8 mg PO Q8H PRN nausea and 11/13/24 Unknown Rx tablet vomiting #12 tabs oxycodone-acetaminophen 5 mg-325 1 tab PO Q6H PRN PRN Pain 3 days 11/13/24 Unknown Rx mg tablet #12 TABLETS simethicone 80 mg chewable tablet 160 mg PO PRN PRN ab dominal 11/13/24 Unknown History distention levothyroxine 100 mcg tablet 100 mcg PO DAILY 11/14/24 Unknown History potassium chloride 10 mEq 10 meq PO DAILY 11/14/24 Unk nown History tablet,extended release Allergy/AdvReac Type Severity Reaction Status Date / Time amoxicillin (From Augmentin) AdvReac PT UNSURE Verified 11/14/24 00:49 OF REACTION clavulanic acid (From AdvReac PT UNSURE Verified 11/14/24 00:49 Augmentin) OF REACTION Surgical History S/P implantation of automatic cardioverter/defibrillator (AICD) H/O: hysterectomy History of cholecystectomy Social History household members: none Smoking Status: Former smoker how long ago did patient quit smoking: Quit ~ 20 yrs prior, smoked 1 ppd x ~ 30 yrs. alcohol intake: never substance use type: does not use ROS ROS ED Constitutional Constitutional ED: Denies chills, fever(s), subjective or sweats Eyes Eyes: Denies blurry vision, change in vision or diplopia ENT ENT ED: Denies ear pain, rhinorrhea or sore throat Cardiovascular Cardiovascular: Reports chest pain and other Details: Chest pain left side due to blunt trauma. ; Denies orthopnea, palpitations, paroxysmal nocturnal dyspnea or racing heartbeat Respiratory/Chest Respiratory/Chest: Reports dyspnea and dyspnea on exertion; Denies cough, orthopnea, paroxysmal nocturnal dyspnea or sputum Gastrointestinal Gastrointestinal: Denies abdominal pain, nausea or vomiting Genitourinary Genitourinary ED: Denies dysuria, hematuria or urinary frequency Musculoskeletal Musculoskeletal: Denies arthralgias or myalgias Integumentary Denies rash Neurologic Neurologic: Denies headache(s) or weakness Endocrine Endocrinology: Denies cold intolerance or heat intolerance Hematologic/Lymphatic Hematologic/Lymphatic: Reports systems reviewed and no addt'l complaints, except as documented EXAM Physical Exam Const Vital Signs: 11/14/24 00:49 11/14/24 01:19 11/14/24 01:53 Temperature 97.2 F L Temperature Source Temporal Pulse Rate 69 Pulse Rate [Lying] 48 L Pulse Rate [Sitting (for 1 minute prior to obtaining)] 62 Pulse Rate [Standing (for 1 minute prior to obtaining)] 64 Respiratory Rate 16 Respiratory Effort Normal Non-Labored Respiratory Pattern Normal Blood Pressure 133/84 H Blood Pressure [Lying] 117/62 Blood Pressure [Sitting (for 1 minute prior to obtaining)] 131/90 H Blood Pressure [Standing (for 1 minute prior to obtaining)] 133/70 H Blood Pressure Mean 100 Blood Pressure Mean [Lying] 80 Blood Pressure Mean [Sitting (for 1 minute prior to obtaining)] 103 Blood Pressure Mean [Standing (for 1 minute prior to obtaining)] 91 Pulse Ox 92 Oxygen Delivery Method Room Air 11/14/24 01:53 11/14/24 02:00 11/14/24 02:11 Temperature Temperature Source Pulse Rate 80 53 L 54 L Pulse Rate [Lying] Pulse Rate [Sitting (for 1 minute prior to obtaining)] Pulse Rate [Standing (for 1 minute prior to obtaining)] Respiratory Rate 17 14 17 Respiratory Effort Respiratory Pattern Blood Pressure 133/70 H 133/70 H 99/66 Blood Pressure [Lying] Blood Pressure [Sitting (for 1 minute prior to obtaining)] Blood Pressure [Standing (for 1 minute prior to obtaining)] Blood Pressure Mean 91 91 77 Blood Pressure Mean [Lying] Blood Pressure Mean [Sitting (for 1 minute prior to obtaining)] Blood Pressure Mean [Standing (for 1 minute prior to obtaining)] Pulse Ox 96 86 95 Oxygen Delivery Method Room Air Room Air Room Air 11/14/24 03:00 Temperature Temperature Source Pulse Rate 65 Pulse Rate [Lying] Pulse Rate [Sitting (for 1 minute prior to obtaining)] Pulse Rate [Standing (for 1 minute prior to obtaining)] Respiratory Rate 20 H Respiratory Effort Respiratory Pattern Blood Pressure 103/58 L Blood Pressure [Lying] Blood Pressure [Sitting (for 1 minute prior to obtaining)] Blood Pressure [Standing (for 1 minute prior to obtaining)] Blood Pressure Mean 73 Blood Pressure Mean [Lying] Blood Pressure Mean [Sitting (for 1 minute prior to obtaining)] Blood Pressure Mean [Standing (for 1 minute prior to obtaining)] Pulse Ox 92 Oxygen Delivery Method Room Air Orthostatic vital signs are normal. Positive well nourished and well developed Constitutional Narrative: BMI is 34.7. Blood pressure slightly elevated. General Appearance ED: well developed; Negative for cyanotic, diaphoretic, NAD or pallor HEENT Reports dry mucous membranes HEENT Narrative: Head is atraumatic normocephalic. Ears normal. Nares patent. Posterior pharynx unremarkable. Mouth ED: Yes dry mucous membranes Mouth: dry mucous membranes Eyes PERRL and EOMs intact bilaterally General Eye ED: Negative for pale conjunctiva or scleral icterus Neck no lymphadenopathy, supple and no JVD Chest Wall inspection of chest normal and palpation of chest normal Chest Narrative: Patient complains of pain with palpation of the left side of the chest wall. There is no crepitus or subcutaneous air. Resp normal respiratory effort and clear to auscultation bilaterally Auscultation: Negative for rales, rhonchi or wheezes Cardio regular rate, regular rhythm, S1 normal heart sound and S2 normal heart sound GI normal to inspection, nondistended, normoactive bowel sounds, non-tender, non- distended and no masses; Negative for hepatosplenomegaly Back/Spine General Back: CVA tenderness left Extremity General Extremety ED: Yes edema General Extremity: edema Neuro oriented x3, CN's II-XII intact bilaterally and no sensory deficits noted Neuro Narrative: Patient is awake but not necessarily alert. There is no clonus Babinski sign noted right or left. There is no dysmetria. Sensorium / Orientation: Negative for alert Motor Exam: strength 5/5 throughout Psych Mood & Affect: depressed Skin no rashes or lesions noted and no wounds General Skin Exam: Negative for elasticity normal, jaundice or pallor MDM MDM MDM Narrative Medical decision making narrative: Since patient was just discharged reviewed note authored by Dr. Jose Goldberg. Reviewed her laboratory tests and images. Because there was concern regarding her pacemaker this was interrogated. CBC was obtained to assess H&H to determine if there is a change in with necessitate CT of the abdomen and pelvis to evaluate for hepatic or splenic injury. Doubt renal injury since patient's urine was unremarkable. Macro was negative for occult blood and micro had 0 RBCs. This may represent an atypical presentation for cardiac ischemia. Serial troponin levels were obtained. This may represent a vasovagal episode. Lab Data Attestation: I reviewed the patient's lab results. Lab results narrative: CBC is unchanged from laboratory tests obtained earlier. First troponin is slightly elevated at 20. Second troponin is 22. Delta is 2. This is not significant. Since patient desaturates with minimal activity and had a episode of diaphoresis with near syncope suspect this to be a vasovagal will contact hospitalist for MedSurg observation status with OT PT because of her pain due to the fall that was evaluated on prior visit. Labs: Laboratory Results - last 24 hr 11/14/24 11/14/24 01:00 03:08 WBC 10.7 RBC 4.43 Hgb 12.9 Hct 40.3 MCV 91.0 MCH 29.1 MCHC 32.0 RDW Std Deviation 47.1 H RDW Coeff of Julian 14.1 Plt Count 305 MPV 9.8 Troponin T High Sens 20 H Troponin T Hi Sens 2 Hr 22 H ABG Data Attestation: I personally reviewed and interpreted this ABG as follows: Interpretation: ABG is actually a VBG. Respiratory therapist informed her that she was difficult to obtain blood from. pH was 7.45, pCO2 39.4, PO2 30.5. Bicarb was 27.4. Saturation 61.6%. This venous blood gases unremarkable. ABG results: ABG 11/14/24 02:44 Specimen Type TRES Sample Site R Brach VBG pH 7.45 H VBG pO2 31 VBG HCO3 27 H VBG Total CO2 29 VBG O2 Sat (Calc) 62 VBG Base Excess 3 POC Mix VBG pCO2 Pt Tmp 39.4 L O2 Delivery Device Room Air EKG Initial EKG: Attestation: I personally reviewed and interpreted this EKG as follows: Interpretation: Paced (Atrial sensed ventricular paced rhythm rate of 49. Trigger point is 45. NV interval is 120 ms. Cures duration is prolonged at 122 ms. QT is 520 ms with a QTc of 469.) Management Discussion w/another healthcare provider: Hospitalist (Case was discussed with Dr. Tank Lester. He requested CTA since the scan that was performed earlier was without contrast. In my opinion this is very reasonable since she has unexplained hypoxia. Also may reveal a pulmonary contusion that was not noted earlier. She will be admitted to PCU.) Treatment and Re-Evaluation :: I was informed by ancillary staff that when she stood up she desaturated to 86%. Since she had a CT that revealed no evidence of pneumothorax, hemothorax or fractured ribs suspect this is due to the fact that she is not taking adequate breaths because of her pain. Discharge Plan Dx/Rx/DC Orders Clinical Impression: Near syncope, Hypoxia, Pacemaker, Bradycardia, Injury due to fall, Contusion of left front wall of thorax, subsequent encounter Disposition Disposition: Acute Care Hospital [facility]
[2024-11-14 02:50] LABS: SITE R Brach; VBG BASE EXCESS 3 mmol/L (-1.0-3.5); VBG PO2 31 mmHg (25-40); VBG SO2 62 % (50-70); VBG TCO2 29 mmol/L (23-33)
[2024-11-14 03:45] LABS: Troponin T High Sens 2 HR 22 ng/L (<=14)
--- NOTE | 2024-11-14 04:05 | HP.PCM.HOS_ITS ---
[facility] - General General Date of Admission: 11/14/24 Date of Service: 11/14/24 Chief Complaint: Near Syncope and Fall with SOB. [facility] Narrative PRANAV WATKINS, is a 79 F with a past medical history of essential hypertension; on metoprolol, losartan and furosemide, hyperlipidemia; currently not on treatment, hypothyroidism; on levothyroxine, former tobacco abuse (quit ~20 years ago), obesity; with BMI of 34.7 this admission, chronic diastolic CHF; preserved LVEF, history of arrhythmia; s/p PPM/AICD (July 2023) followed by Dr. Wellington at [facility], IBS; of diarrheal type with painful abdominal bloating on simethicone as needed and OA who presents to [facility] ER complaining of near syncope. Ms. Watkins reports her symptoms began on the evening of November 13, 2024 after she presented to the ER for the first time complaining of an accidental trip and fall after she went out to check the mail and caught the edge of the sidewalk with her foot, causing her to tumble and hit the right lateral side of her face and ribs on the right with subsequent radiation into Left chest wall pain and shoulder blade. She also endorsed mild pain in the 4th and 5th fingers of her Right hand with some difficulty moving them as they are still swollen and stiff. EMS was called and helped her onto her feet and she was able to stand up immediately without marked orthostasis. She denied loss of consciousness with her fall, headaches or currently being on anticoagulation. She underwent CT scan of the chest without contrast which revealed no acute findings on noncontrast examination with visualization limited by motion artifact and streak artifact from Left chest wall pacemaker with no other signs of significant trauma or injury with mention of possible cardiac contusion with possible nondisplaced rib fractures not evident on imaging and EKG that revealed RBBB with some associated T-wave changes, but no acute injury pattern or ectopy. She also underwent head CT that revealed no acute intracranial finding prior to being discharged home after conservative medical treatment with Zofran ODT and oxycodone 5 mg p.o x 1. She then returned to the ER at approximately 2 AM on November 14, 2024 complaining of a near syncopal event that was sudden in onset. She admits to associated diaphoresis and pallor with associated dyspnea on exertion that has now progressed to shortness of breath at rest. She also complained of Left-sided chest pain with patient noted to have a heart rate in the 40's and pacemaker interrogation done in the ER that shows her pacemaker is not set to atrial paced until 45 bpm with ER physician raising concern the device may need to be adjusted to increase her heart rate to prevent further syncopal episodes due to bradycardia with additional concern expressed for possible vasovagal syncopal event. In the ER she was noted to have an elevated initial troponin T of 20 ng/L followed by a second troponin T of 22 ng/L with patient also desaturating with minimal activity patient noted to have an oxygen saturation of ~86% with VBG that revealed pH 7.45/ total CO2 29 mmHg/ PO2 31 mmHg/ HCO3 27 mmol/L at 61.6% saturation on RA with otherwise unremarkable laboratory studies. After discussion with ER physician who was decided to pursue CTA of the chest with IV contrast due to patient's dyspnea and ongoing concern for possible cardiac contusion, pulmonary contusion or pulmonary embolism which was eventually read as negative for acute pathologic changes. The patient went on to explain she had a similar previous episode approximately 1 year ago attributed to dehydration from a combination of diarrhea from IBS and furosemide which was changed to as needed for fluid overload after being initially prescribed daily. There was no reported fever, chills, changes in vision, discharge from eyes, headache, focal neurologic deficits, runny nose, sore throat, ear pain, abdominal pain, vomiting, diarrhea, dysuria, hematuria, urinary frequency or rash. She was then admitted to the PCU for ongoing care for a stay that is expected to extend beyond 2 midnights. [facility] Medical History (Updated 11/14/24 @ 06:[address] Tank Cabezas, DO) Obesity Former tobacco use Hyperlipidemia HFrEF (heart failure with reduced ejection fraction) Presence of combination internal cardiac defibrillator (ICD) and pacemaker Hypertension Home Medications ?Medication ?Instructions ?Recorded ?Last Taken ?Type aspirin 81 mg tablet,delayed 81 mg PO DAILY 03/27/24 U nknown History release (Adult Aspirin Regimen) furosemide 20 mg tablet 20 mg PO DAILY 03/27/24 Unkn own History losartan 25 mg tablet 25 mg PO DAILY 03/27/24 Unkn own History metoprolol succinate 25 mg 25 mg PO QHS 03/27/24 Unkno wn History tablet,extended release 24 hr ondansetron 8 mg disintegrating 8 mg PO Q8H PRN nausea and 11/13/24 Unknown Rx tablet vomiting #12 tabs oxycodone-acetaminophen 5 mg-325 1 tab PO Q6H PRN PRN Pain 3 days 11/13/24 Unknown Rx mg tablet #12 TABLETS simethicone 80 mg chewable tablet 160 mg PO PRN PRN ab dominal 11/13/24 Unknown History distention levothyroxine 100 mcg tablet 100 mcg PO DAILY 11/14/24 Unknown History potassium chloride 10 mEq 10 meq PO DAILY 11/14/24 Unk nown History tablet,extended release Allergy/AdvReac Type Severity Reaction Status Date / Time amoxicillin (From Augmentin) AdvReac PT UNSURE Verified 11/14/24 00:49 OF REACTION clavulanic acid (From AdvReac PT UNSURE Verified 11/14/24 00:49 Augmentin) OF REACTION Surgical History S/P implantation of automatic cardioverter/defibrillator (AICD) H/O: hysterectomy History of cholecystectomy Social History household members: none Smoking Status: Former smoker how long ago did patient quit smoking: Quit ~ 20 yrs prior, smoked 1 ppd x ~ 30 yrs. alcohol intake: never substance use type: does not use ROS ROS Narrative Review of Systems: Constitutional: Patient denies fever or chills. Eyes: Patient denies change in vision or discharge from eyes. ENT: Patient denies runny nose, sore throat or ear pain. Resp: Patient admits to dyspnea on exertion that progressed to shortness of breath at rest as per HPI. CV: Patient admits to Left-sided chest pain after recent fall due to blunt trauma as per HPI. She denies palpitations, heart racing, orthopnea or LE edema. GI: Patient admits to nausea but she denies denies vomiting, abdominal pain, diarrhea or constipation. : Patient denies dysuria or hematuria. MSK: Patient admits to severe stiffness and soreness in her entire Left side and in the 4th and 5th fingers of her Right hand after recent fall. Skin: Patient admits to scattered bruises on her extremities after recent fall but she denies rash. Psych: Patient denies symptoms of uncontrolled depression or anxiety. Neuro: Patient denies headache, paresthesias or focal neurologic deficits. Allergy: Patient denies lip swelling, tongue swelling or urticaria. Hematology: Patient denies easy bleeding or easy bruisability. Endocrinology: Patient denies polyuria, polydipsia, polyphagia or heat/cold intolerance. 14 point ROS otherwise negative except for positives noted above HPI. Vital Signs Vital Signs Vital Signs: 11/14/24 00:49 11/14/24 01:19 11/14/24 01:53 Temperature 97.2 F L Temperature Source Temporal Pulse Rate 69 Pulse Rate [Lying] 48 L Pulse Rate [Sitting (for 1 minute prior to obtaining)] 62 Pulse Rate [Standing (for 1 minute prior to obtaining)] 64 Respiratory Rate 16 Respiratory Effort Normal Non-Labored Respiratory Pattern Normal Blood Pressure 133/84 H Blood Pressure [Lying] 117/62 Blood Pressure [Sitting (for 1 minute prior to obtaining)] 131/90 H Blood Pressure [Standing (for 1 minute prior to obtaining)] 133/70 H Blood Pressure Mean 100 Blood Pressure Mean [Lying] 80 Blood Pressure Mean [Sitting (for 1 minute prior to obtaining)] 103 Blood Pressure Mean [Standing (for 1 minute prior to obtaining)] 91 Pulse Ox 92 Oxygen Delivery Method Room Air 11/14/24 01:53 11/14/24 02:00 11/14/24 02:11 Temperature Temperature Source Pulse Rate 80 53 L 54 L Pulse Rate [Lying] Pulse Rate [Sitting (for 1 minute prior to obtaining)] Pulse Rate [Standing (for 1 minute prior to obtaining)] Respiratory Rate 17 14 17 Respiratory Effort Respiratory Pattern Blood Pressure 133/70 H 133/70 H 99/66 Blood Pressure [Lying] Blood Pressure [Sitting (for 1 minute prior to obtaining)] Blood Pressure [Standing (for 1 minute prior to obtaining)] Blood Pressure Mean 91 91 77 Blood Pressure Mean [Lying] Blood Pressure Mean [Sitting (for 1 minute prior to obtaining)] Blood Pressure Mean [Standing (for 1 minute prior to obtaining)] Pulse Ox 96 86 95 Oxygen Delivery Method Room Air Room Air Room Air 11/14/24 03:00 Temperature Temperature Source Pulse Rate 65 Pulse Rate [Lying] Pulse Rate [Sitting (for 1 minute prior to obtaining)] Pulse Rate [Standing (for 1 minute prior to obtaining)] Respiratory Rate 20 H Respiratory Effort Respiratory Pattern Blood Pressure 103/58 L Blood Pressure [Lying] Blood Pressure [Sitting (for 1 minute prior to obtaining)] Blood Pressure [Standing (for 1 minute prior to obtaining)] Blood Pressure Mean 73 Blood Pressure Mean [Lying] Blood Pressure Mean [Sitting (for 1 minute prior to obtaining)] Blood Pressure Mean [Standing (for 1 minute prior to obtaining)] Pulse Ox 92 Oxygen Delivery Method Room Air Weight Weight: 195 lb 15.855 oz Body Mass Index (BMI) 34.7 Physical Exam Const alert, oriented x3 and no apparent distress Constitutional Narrative: Obese with elderly frail appearance. General Appearance: cooperative HEENT normocephalic, head/scalp atraumatic, hearing grossly normal bilaterally and moist oral mucous membranes Eyes PERRL, EOMs intact bilaterally and conjunctivae normal Neck no lymphadenopathy and supple Resp normal respiratory effort, no retractions, no use of accessory muscles and clear to auscultation bilaterally Cardio regular rate and regular rhythm Cardio Narrative: Bradycardia noted at ~49 bpm. GI normal to inspection, nondistended, normoactive bowel sounds, soft to palpation, non-tender and non-distended Extremity Extremity Narrative: Patient has scattered bruising on extremities from recent fall. Skin Skin Narrative: Patient has evidence of rash, abscess, wounds or jaundice. Neuro oriented x3, CN's II-XII intact bilaterally, moves all extremities and no focal motor deficits Sensorium / Orientation: awake, alert, oriented to person, oriented to place and oriented to time Speech: speech normal Results Lab / Micro Data Attestation: I reviewed the patient's lab results. 11/14/24 01:00 Labs: Laboratory Results - last 24 hr 11/14/24 01:00: WBC 10.7, RBC 4.43, Hgb 12.9, Hct 40.3, MCV 91.0, MCH 29.1, MCHC 32.0, RDW Std Deviation 47.1 H, RDW Coeff of Julian 14.1, Plt Count 305, MPV 9.8, T roponin T High Sens 20 H 11/14/24 03:08: Troponin T Hi Sens 2 Hr 22 H ABG Data ABG results: ABG 11/14/24 02:44 Specimen Type TRES Sample Site R Brach VBG pH 7.45 H VBG pO2 31 VBG HCO3 27 H VBG Total CO2 29 VBG O2 Sat (Calc) 62 VBG Base Excess 3 POC Mix VBG pCO2 Pt Tmp 39.4 L O2 Delivery Device Room Air Imaging [facility] Imaging Services [address] [place] [address] Chest without Contrast MR#: [id number] Acct: [id number] Name: PRANAV WATKINS Rep #: [id number] : 1945 F [id number] From: Concetta Lanza MD PCP: Dr. Mandeep Houser DO Status: REG ER Study: Chest without Contrast Date of Exam: 11/13/24 Exam# [id number] Ordering Dr: Jose Goldberg MD PROCEDURE: CHEST WITHOUT CONTRAST 11/13/2024 REASON FOR EXAM: FALL, CP/SOB, MULTIPLE AREAS OF CHEST WALL INJURY TECHNIQUE: Chest CT without contrast. Coronal and Sagittal reconstruction series were provided. One or more dose reduction techniques were used (e.g., Automated exposure control, adjustment of the mA and/or kV according to patient size, use of iterative reconstruction technique. RADIATION DOSE SUMMARY: DLP: 1400 mGycm COMPARISON: Same day chest radiograph. FINDINGS: Visualization is limited by motion artifact and streak artifact from left chest wall pacemaker. Hardware: Pacemaker. Lymph nodes: Visualization is limited by noncontrast imaging. No large lymphadenopathy. Heart and Vasculature: The heart is normal in size without pericardial effusion. The great vessels are grossly normal caliber. At least moderate coronary artery and thoracic aortic calcifications. Lungs and Airways: Visualization is limited by motion artifact. The central airways are patent. Bibasilar atelectasis/scarring. No large pulmonary mass, pleural effusion or pneumothorax. Upper Abdomen: Diverticulosis. Calcific plaque of the abdominal aorta. Bones: Thoracic spondylosis. No obvious acute fracture. CT/Chest without Contrast IMPRESSION: Visualization is limited by motion artifact and streak artifact from left chest wall pacemaker. No acute finding on noncontrast examination. Reading Location: [id number] CC: Dr. Jose Goldberg MD; Dr. Mandeep Houser DO ~ Steel E[employer]ctor: Signed [facility] Imaging Services [address] [place] [address] CTA Chest W/WO Contrast MR#: [id number] Acct: [id number] Name: PRANAV WATKINS Rep #: [id number] : 1945 F 79 From: Thiago Beard MD PCP: Dr. Mandeep Houser, Status: ADM IN Study: CTA Chest W/WO Contrast Date of Exam: 11/14/24 Exam# [id number] Ordering Dr: Nathaniel Bustamante MD PROCEDURE: CTA CHEST W/WO CONTRAST 11/14/2024 REASON FOR EXAM: HYPOXIA UNEXPLAINED TECHNIQUE: CTA CHEST W/WO CONTRAST Multiplanar Sagittal and Coronal images were obtained. CONTRAST: Isovue 3 7 VOLUME: 100 mL One or more dose reduction techniques were used (e.g., Automated exposure control, adjustment of the mA and/or kV according to patient size, use of iterative reconstruction technique). RADIATION DOSE SUMMARY: CTDlvol: 31 mGy DLP: 540 mGycm COMPARISON: 11/13/2024 FINDINGS: Absent thyroid gland. Unremarkable axilla. Thoracic spine scoliosis and degeneration. Normal esophagus. Upper limits of normal heart size. No aortic dissection. No pulmonary embolism. Central airways are patent. Bronchial wall thickening. Dependent atelectasis. Mild emphysema. No consolidation, effusion or pneumothorax. On the left, series 2, image 119, 4 mm noncalcified upper lobe nodule. Recommend annual screening with low-dose chest CT.. On the right, no suspicious lung nodules. No acute upper abdominal findings. Diverticulosis. Status post cholecystectomy. Left-sided cardiac device. No acute chest wall findings. CT/CTA Chest W/WO Contrast IMPRESSION: No embolism, dissection, or pneumonia. Reading Location: [place] [address] CC: Dr. Mandeep Houser DO; Dr. Nathaniel Bustamante MD ~ Steel Erector: Signed Assessment & Plan Assessment/Plan (1) Near syncope: (2) Diaphoresis: (3) Shortness of breath: (4) Injury due to fall: QUALIFIERS: Encounter type: initial encounter Qualified Code(s): W19.XXXA - Unspecified fall, initial encounter (5) Contusion of left front wall of thorax, subsequent encounter: (6) Elevated troponin: (7) Presence of combination internal cardiac defibrillator (ICD) and pacemaker: (8) Essential hypertension: (9) Adverse drug reaction: QUALIFIERS: Encounter type: initial encounter Qualified Code(s): T50.905A - Adverse effect of unspecified drugs, medicaments and biological substances, initial encounter (10) Generalized weakness: (11) Ambulatory dysfunction: (12) Obesity (BMI 30.0-34.9): PLAN: Plan 1. Near Syncopal event with Diaphoresis and SOB after recent mechanical fall causing blunt force trauma to the chest wall with subsequent persistent chest pain - Admit to PCU. Check echocardiogram to evaluate LVEF. Check carotid Doppler to evaluate for stenosis. Serialize troponin. Check urinalysis and CPK after recent trauma. Give normal saline 100 cc/h x 1 L and then reassess. Continue aspirin as previous. Give acetaminophen as needed for [id number] (level 1-5/10) pain or fever. Give morphine IV as needed for severe (level 6- 10/10) pain. Patient suspects recent oxycodone may have at least partially provoked some of her symptoms. 2. Mildly elevated initial troponin T of 20 ng/L from suspected cardiac contusion complicating #1 - CTA of chest with IV contrast negative for PE or obvious organ-related significant traumatic injury. Check echocardiogram to evaluate LVEF and to evaluate for possible wall motion abnormalities after recent trauma. 3. Shortness of Breath attributable to #1 & #2 - Start supplemental oxygen if needed. 4. History of arrhythmia; s/p PPM/AICD with patient bradycardic ~49 bpm range raising concern for possible vasovagal syncope compounding #1 - #3 - We we will consult [facility] for further recommendations regarding adjustment of pacemaker settings to allow pacing at a higher heart rate to prevent recurrence with help appreciated in advance. After new echocardiogram results are available patient would appreciate if a call would be made to Dr. Wellington to update her on patient's findings and recent events. 5. Essential hypertension; on metoprolol, losartan and furosemide with possible adverse drug reaction to beta-blockade contributing to #4 - Hold metoprolol in light of persistent bradycardia. We will also hold losartan and furosemide with blood pressure of 103/58 mmHg noted shortly after admission. 6. Generalized Weakness with Ambulatory Dysfunction after recent fall with residual Left-sided severe soreness followed by near syncopal event with diaphoresis arising from #1 - #5 in the setting of previously known OA - PT/OT and Case Management consult and treat on rounds in a.m. further recommendations with appreciated in advance. 7. Obesity; with BMI of 34.7 this admission adding to the burden of disease outlined from #1 - #5 - Weight loss was recommended. Check TSH. This complicates her case and may hamper recovery. 8. Chronic diastolic CHF; preserved LVEF - Noted with echocardiogram ordered for #1. 9. IBS; of diarrheal type with painful abdominal bloating on simethicone as needed - Continue as needed simethicone daily as needed for abdominal bloating plus antidiarrheal if patient develops signs of severe active disease. 10. Hyperlipidemia; currently not on treatment - Check Lipid Profile this admission to confirm status. 11. Hypothyroidism; on levothyroxine - Resume levothyroxine and check TSH. 12. Former tobacco abuse (quit ~20 years ago) - Noted. 13. DVT prophylaxis - Heparin 5,000U sq BID plus SCDs. Total time: Approximately (but not less than) 75 minutes. Charges/Coding Visit Charges Inpatient E&M: 58167 Init Hosp L3
--- NOTE | 2024-11-14 04:05 | HP.PCM.HOS_ITS ---
[facility] - General General Date of Admission: 11/14/24 Date of Service: 11/14/24 Chief Complaint: Near Syncope and Fall with SOB. [facility] Narrative PRANAV WATKINS, is a 79 F with a past medical history of essential hypertension; on metoprolol, losartan and furosemide, hyperlipidemia; currently not on treatment, hypothyroidism; on levothyroxine, former tobacco abuse (quit ~20 years ago), obesity; with BMI of 34.7 this admission, chronic diastolic CHF; preserved LVEF, history of arrhythmia; s/p PPM/AICD (July 2023) followed by Dr. Wellington at [facility], IBS; of diarrheal type with painful abdominal bloating on simethicone as needed and OA who presents to [facility] ER complaining of near syncope. Ms. Watkins reports her symptoms began on the evening of November 13, 2024 after she presented to the ER for the first time complaining of an accidental trip and fall after she went out to check the mail and caught the edge of the sidewalk with her foot, causing her to tumble and hit the right lateral side of her face and ribs on the right with subsequent radiation into Left chest wall pain and shoulder blade. She also endorsed mild pain in the 4th and 5th fingers of her Right hand with some difficulty moving them as they are still swollen and stiff. EMS was called and helped her onto her feet and she was able to stand up immediately without marked orthostasis. She denied loss of consciousness with her fall, headaches or currently being on anticoagulation. She underwent CT scan of the chest without contrast which revealed no acute findings on noncontrast examination with visualization limited by motion artifact and streak artifact from Left chest wall pacemaker with no other signs of significant trauma or injury with mention of possible cardiac contusion with possible nondisplaced rib fractures not evident on imaging and EKG that revealed RBBB with some associated T-wave changes, but no acute injury pattern or ectopy. She also underwent head CT that revealed no acute intracranial finding prior to being discharged home after conservative medical treatment with Zofran ODT and oxycodone 5 mg p.o x 1. She then returned to the ER at approximately 2 AM on November 14, 2024 complaining of a near syncopal event that was sudden in onset. She admits to associated diaphoresis and pallor with associated dyspnea on exertion that has now progressed to shortness of breath at rest. She also complained of Left-sided chest pain with patient noted to have a heart rate in the 40's and pacemaker interrogation done in the ER that shows her pacemaker is not set to atrial paced until 45 bpm with ER physician raising concern the device may need to be adjusted to increase her heart rate to prevent further syncopal episodes due to bradycardia with additional concern expressed for possible vasovagal syncopal event. In the ER she was noted to have an elevated initial troponin T of 20 ng/L followed by a second troponin T of 22 ng/L with patient also desaturating with minimal activity patient noted to have an oxygen saturation of ~86% with VBG that revealed pH 7.45/ total CO2 29 mmHg/ PO2 31 mmHg/ HCO3 27 mmol/L at 61.6% saturation on RA with otherwise unremarkable laboratory studies. After discussion with ER physician who was decided to pursue CTA of the chest with IV contrast due to patient's dyspnea and ongoing concern for possible cardiac contusion, pulmonary contusion or pulmonary embolism which was eventually read as negative for acute pathologic changes. The patient went on to explain she had a similar previous episode approximately 1 year ago attributed to dehydration from a combination of diarrhea from IBS and furosemide which was changed to as needed for fluid overload after being initially prescribed daily. There was no reported fever, chills, changes in vision, discharge from eyes, headache, focal neurologic deficits, runny nose, sore throat, ear pain, abdominal pain, vomiting, diarrhea, dysuria, hematuria, urinary frequency or rash. She was then admitted to the PCU for ongoing care for a stay that is expected to extend beyond 2 midnights. [facility] Medical History (Updated 11/14/24 @ 06:[address] Tank Cabezas, DO) Obesity Former tobacco use Hyperlipidemia HFrEF (heart failure with reduced ejection fraction) Presence of combination internal cardiac defibrillator (ICD) and pacemaker Hypertension Home Medications ?Medication ?Instructions ?Recorded ?Last Taken ?Type aspirin 81 mg tablet,delayed 81 mg PO DAILY 03/27/24 U nknown History release (Adult Aspirin Regimen) furosemide 20 mg tablet 20 mg PO DAILY 03/27/24 Unkn own History losartan 25 mg tablet 25 mg PO DAILY 03/27/24 Unkn own History metoprolol succinate 25 mg 25 mg PO QHS 03/27/24 Unkno wn History tablet,extended release 24 hr ondansetron 8 mg disintegrating 8 mg PO Q8H PRN nausea and 11/13/24 Unknown Rx tablet vomiting #12 tabs oxycodone-acetaminophen 5 mg-325 1 tab PO Q6H PRN PRN Pain 3 days 11/13/24 Unknown Rx mg tablet #12 TABLETS simethicone 80 mg chewable tablet 160 mg PO PRN PRN ab dominal 11/13/24 Unknown History distention levothyroxine 100 mcg tablet 100 mcg PO DAILY 11/14/24 Unknown History potassium chloride 10 mEq 10 meq PO DAILY 11/14/24 Unk nown History tablet,extended release Allergy/AdvReac Type Severity Reaction Status Date / Time amoxicillin (From Augmentin) AdvReac PT UNSURE Verified 11/14/24 00:49 OF REACTION clavulanic acid (From AdvReac PT UNSURE Verified 11/14/24 00:49 Augmentin) OF REACTION Surgical History S/P implantation of automatic cardioverter/defibrillator (AICD) H/O: hysterectomy History of cholecystectomy Social History household members: none Smoking Status: Former smoker how long ago did patient quit smoking: Quit ~ 20 yrs prior, smoked 1 ppd x ~ 30 yrs. alcohol intake: never substance use type: does not use ROS ROS Narrative Review of Systems: Constitutional: Patient denies fever or chills. Eyes: Patient denies change in vision or discharge from eyes. ENT: Patient denies runny nose, sore throat or ear pain. Resp: Patient admits to dyspnea on exertion that progressed to shortness of breath at rest as per HPI. CV: Patient admits to Left-sided chest pain after recent fall due to blunt trauma as per HPI. She denies palpitations, heart racing, orthopnea or LE edema. GI: Patient admits to nausea but she denies denies vomiting, abdominal pain, diarrhea or constipation. : Patient denies dysuria or hematuria. MSK: Patient admits to severe stiffness and soreness in her entire Left side and in the 4th and 5th fingers of her Right hand after recent fall. Skin: Patient admits to scattered bruises on her extremities after recent fall but she denies rash. Psych: Patient denies symptoms of uncontrolled depression or anxiety. Neuro: Patient denies headache, paresthesias or focal neurologic deficits. Allergy: Patient denies lip swelling, tongue swelling or urticaria. Hematology: Patient denies easy bleeding or easy bruisability. Endocrinology: Patient denies polyuria, polydipsia, polyphagia or heat/cold intolerance. 14 point ROS otherwise negative except for positives noted above HPI. Vital Signs Vital Signs Vital Signs: 11/14/24 00:49 11/14/24 01:19 11/14/24 01:53 Temperature 97.2 F L Temperature Source Temporal Pulse Rate 69 Pulse Rate [Lying] 48 L Pulse Rate [Sitting (for 1 minute prior to obtaining)] 62 Pulse Rate [Standing (for 1 minute prior to obtaining)] 64 Respiratory Rate 16 Respiratory Effort Normal Non-Labored Respiratory Pattern Normal Blood Pressure 133/84 H Blood Pressure [Lying] 117/62 Blood Pressure [Sitting (for 1 minute prior to obtaining)] 131/90 H Blood Pressure [Standing (for 1 minute prior to obtaining)] 133/70 H Blood Pressure Mean 100 Blood Pressure Mean [Lying] 80 Blood Pressure Mean [Sitting (for 1 minute prior to obtaining)] 103 Blood Pressure Mean [Standing (for 1 minute prior to obtaining)] 91 Pulse Ox 92 Oxygen Delivery Method Room Air 11/14/24 01:53 11/14/24 02:00 11/14/24 02:11 Temperature Temperature Source Pulse Rate 80 53 L 54 L Pulse Rate [Lying] Pulse Rate [Sitting (for 1 minute prior to obtaining)] Pulse Rate [Standing (for 1 minute prior to obtaining)] Respiratory Rate 17 14 17 Respiratory Effort Respiratory Pattern Blood Pressure 133/70 H 133/70 H 99/66 Blood Pressure [Lying] Blood Pressure [Sitting (for 1 minute prior to obtaining)] Blood Pressure [Standing (for 1 minute prior to obtaining)] Blood Pressure Mean 91 91 77 Blood Pressure Mean [Lying] Blood Pressure Mean [Sitting (for 1 minute prior to obtaining)] Blood Pressure Mean [Standing (for 1 minute prior to obtaining)] Pulse Ox 96 86 95 Oxygen Delivery Method Room Air Room Air Room Air 11/14/24 03:00 Temperature Temperature Source Pulse Rate 65 Pulse Rate [Lying] Pulse Rate [Sitting (for 1 minute prior to obtaining)] Pulse Rate [Standing (for 1 minute prior to obtaining)] Respiratory Rate 20 H Respiratory Effort Respiratory Pattern Blood Pressure 103/58 L Blood Pressure [Lying] Blood Pressure [Sitting (for 1 minute prior to obtaining)] Blood Pressure [Standing (for 1 minute prior to obtaining)] Blood Pressure Mean 73 Blood Pressure Mean [Lying] Blood Pressure Mean [Sitting (for 1 minute prior to obtaining)] Blood Pressure Mean [Standing (for 1 minute prior to obtaining)] Pulse Ox 92 Oxygen Delivery Method Room Air Weight Weight: 195 lb 15.855 oz Body Mass Index (BMI) 34.7 Physical Exam Const alert, oriented x3 and no apparent distress Constitutional Narrative: Obese with elderly frail appearance. General Appearance: cooperative HEENT normocephalic, head/scalp atraumatic, hearing grossly normal bilaterally and moist oral mucous membranes Eyes PERRL, EOMs intact bilaterally and conjunctivae normal Neck no lymphadenopathy and supple Resp normal respiratory effort, no retractions, no use of accessory muscles and clear to auscultation bilaterally Cardio regular rate and regular rhythm Cardio Narrative: Bradycardia noted at ~49 bpm. GI normal to inspection, nondistended, normoactive bowel sounds, soft to palpation, non-tender and non-distended Extremity Extremity Narrative: Patient has scattered bruising on extremities from recent fall. Skin Skin Narrative: Patient has evidence of rash, abscess, wounds or jaundice. Neuro oriented x3, CN's II-XII intact bilaterally, moves all extremities and no focal motor deficits Sensorium / Orientation: awake, alert, oriented to person, oriented to place and oriented to time Speech: speech normal Results Lab / Micro Data Attestation: I reviewed the patient's lab results. 11/14/24 01:00 Labs: Laboratory Results - last 24 hr 11/14/24 01:00: WBC 10.7, RBC 4.43, Hgb 12.9, Hct 40.3, MCV 91.0, MCH 29.1, MCHC 32.0, RDW Std Deviation 47.1 H, RDW Coeff of Julian 14.1, Plt Count 305, MPV 9.8, T roponin T High Sens 20 H 11/14/24 03:08: Troponin T Hi Sens 2 Hr 22 H ABG Data ABG results: ABG 11/14/24 02:44 Specimen Type TRES Sample Site R Brach VBG pH 7.45 H VBG pO2 31 VBG HCO3 27 H VBG Total CO2 29 VBG O2 Sat (Calc) 62 VBG Base Excess 3 POC Mix VBG pCO2 Pt Tmp 39.4 L O2 Delivery Device Room Air Imaging [facility] Imaging Services [address] [place] [address] Chest without Contrast MR#: [id number] Acct: [id number] Name: PRANAV WATKINS Rep #: [id number] : 1945 F [id number] From: Concetta Lanza MD PCP: Dr. Mandeep Houser DO Status: REG ER Study: Chest without Contrast Date of Exam: 11/13/24 Exam# [id number] Ordering Dr: Jose Goldberg MD PROCEDURE: CHEST WITHOUT CONTRAST 11/13/2024 REASON FOR EXAM: FALL, CP/SOB, MULTIPLE AREAS OF CHEST WALL INJURY TECHNIQUE: Chest CT without contrast. Coronal and Sagittal reconstruction series were provided. One or more dose reduction techniques were used (e.g., Automated exposure control, adjustment of the mA and/or kV according to patient size, use of iterative reconstruction technique. RADIATION DOSE SUMMARY: DLP: 1400 mGycm COMPARISON: Same day chest radiograph. FINDINGS: Visualization is limited by motion artifact and streak artifact from left chest wall pacemaker. Hardware: Pacemaker. Lymph nodes: Visualization is limited by noncontrast imaging. No large lymphadenopathy. Heart and Vasculature: The heart is normal in size without pericardial effusion. The great vessels are grossly normal caliber. At least moderate coronary artery and thoracic aortic calcifications. Lungs and Airways: Visualization is limited by motion artifact. The central airways are patent. Bibasilar atelectasis/scarring. No large pulmonary mass, pleural effusion or pneumothorax. Upper Abdomen: Diverticulosis. Calcific plaque of the abdominal aorta. Bones: Thoracic spondylosis. No obvious acute fracture. CT/Chest without Contrast IMPRESSION: Visualization is limited by motion artifact and streak artifact from left chest wall pacemaker. No acute finding on noncontrast examination. Reading Location: [id number] CC: Dr. Jose Goldberg MD; Dr. Mandeep Houser DO ~ Adult Education Instructor: Signed [facility] Imaging Services [address] [place] [id number] CTA Chest W/WO Contrast MR#: [id number] Acct: [id number] Name: PRANAV WATKINS Rep #: [id number] : 1945 F 79 From: Thiago Beard MD PCP: Dr. Mandeep Houser, Status: ADM IN Study: CTA Chest W/WO Contrast Date of Exam: 11/14/24 Exam# [id number] Ordering Dr: Nathaniel Bustamante MD PROCEDURE: CTA CHEST W/WO CONTRAST 11/14/2024 REASON FOR EXAM: HYPOXIA UNEXPLAINED TECHNIQUE: CTA CHEST W/WO CONTRAST Multiplanar Sagittal and Coronal images were obtained. CONTRAST: Isovue 3 7 VOLUME: 100 mL One or more dose reduction techniques were used (e.g., Automated exposure control, adjustment of the mA and/or kV according to patient size, use of iterative reconstruction technique). RADIATION DOSE SUMMARY: CTDlvol: 31 mGy DLP: 540 mGycm COMPARISON: 11/13/2024 FINDINGS: Absent thyroid gland. Unremarkable axilla. Thoracic spine scoliosis and degeneration. Normal esophagus. Upper limits of normal heart size. No aortic dissection. No pulmonary embolism. Central airways are patent. Bronchial wall thickening. Dependent atelectasis. Mild emphysema. No consolidation, effusion or pneumothorax. On the left, series 2, image 119, 4 mm noncalcified upper lobe nodule. Recommend annual screening with low-dose chest CT.. On the right, no suspicious lung nodules. No acute upper abdominal findings. Diverticulosis. Status post cholecystectomy. Left-sided cardiac device. No acute chest wall findings. CT/CTA Chest W/WO Contrast IMPRESSION: No embolism, dissection, or pneumonia. Reading Location: [place] [address] CC: Dr. Mandeep Houser DO; Dr. Nathaniel Bustamante MD ~ Adult Education Instructor: Signed Assessment & Plan Assessment/Plan (1) Near syncope: (2) Diaphoresis: (3) Shortness of breath: (4) Injury due to fall: QUALIFIERS: Encounter type: initial encounter Qualified Code(s): W19.XXXA - Unspecified fall, initial encounter (5) Contusion of left front wall of thorax, subsequent encounter: (6) Elevated troponin: (7) Presence of combination internal cardiac defibrillator (ICD) and pacemaker: (8) Essential hypertension: (9) Adverse drug reaction: QUALIFIERS: Encounter type: initial encounter Qualified Code(s): T50.905A - Adverse effect of unspecified drugs, medicaments and biological substances, initial encounter (10) Generalized weakness: (11) Ambulatory dysfunction: (12) Obesity (BMI 30.0-34.9): PLAN: Plan 1. Near Syncopal event with Diaphoresis and SOB after recent mechanical fall causing blunt force trauma to the chest wall with subsequent persistent chest pain - Admit to PCU. Check echocardiogram to evaluate LVEF. Check carotid Doppler to evaluate for stenosis. Serialize troponin. Check urinalysis and CPK after recent trauma. Give normal saline 100 cc/h x 1 L and then reassess. Continue aspirin as previous. Give acetaminophen as needed for [id number] (level 1-5/10) pain or fever. Give morphine IV as needed for severe (level 6- 10/10) pain. Patient suspects recent oxycodone may have at least partially provoked some of her symptoms. 2. Mildly elevated initial troponin T of 20 ng/L from suspected cardiac contusion complicating #1 - CTA of chest with IV contrast negative for PE or obvious organ-related significant traumatic injury. Check echocardiogram to evaluate LVEF and to evaluate for possible wall motion abnormalities after recent trauma. 3. Shortness of Breath attributable to #1 & #2 - Start supplemental oxygen if needed. 4. History of arrhythmia; s/p PPM/AICD with patient bradycardic ~49 bpm range raising concern for possible vasovagal syncope compounding #1 - #3 - We we will consult [facility] for further recommendations regarding adjustment of pacemaker settings to allow pacing at a higher heart rate to prevent recurrence with help appreciated in advance. After new echocardiogram results are available patient would appreciate if a call would be made to Dr. Wellington to update her on patient's findings and recent events. 5. Essential hypertension; on metoprolol, losartan and furosemide with possible adverse drug reaction to beta-blockade contributing to #4 - Hold metoprolol in light of persistent bradycardia. We will also hold losartan and furosemide with blood pressure of 103/58 mmHg noted shortly after admission. 6. Generalized Weakness with Ambulatory Dysfunction after recent fall with residual Left-sided severe soreness followed by near syncopal event with diaphoresis arising from #1 - #5 in the setting of previously known OA - PT/OT and Case Management consult and treat on rounds in a.m. further recommendations with appreciated in advance. 7. Obesity; with BMI of 34.7 this admission adding to the burden of disease outlined from #1 - #5 - Weight loss was recommended. Check TSH. This complicates her case and may hamper recovery. 8. Chronic diastolic CHF; preserved LVEF - Noted with echocardiogram ordered for #1. 9. IBS; of diarrheal type with painful abdominal bloating on simethicone as needed - Continue as needed simethicone daily as needed for abdominal bloating plus antidiarrheal if patient develops signs of severe active disease. 10. Hyperlipidemia; currently not on treatment - Check Lipid Profile this admission to confirm status. 11. Hypothyroidism; on levothyroxine - Resume levothyroxine and check TSH. 12. Former tobacco abuse (quit ~20 years ago) - Noted. 13. DVT prophylaxis - Heparin 5,000U sq BID plus SCDs. Total time: Approximately (but not less than) 75 minutes. Charges/Coding Visit Charges Inpatient E&M: 57268 Init Hosp L3
--- NOTE | 2024-11-14 04:08 | CT_ITS ---
PROCEDURE: CTA CHEST W/WO CONTRAST 11/14/2024 REASON FOR EXAM: HYPOXIA UNEXPLAINED TECHNIQUE: CTA CHEST W/WO CONTRAST Multiplanar Sagittal and Coronal images were obtained. CONTRAST: Isovue 3 7 VOLUME: 100 mL One or more dose reduction techniques were used (e.g., Automated exposure control, adjustment of the mA and/or kV according to patient size, use of iterative reconstruction technique). RADIATION DOSE SUMMARY: CTDlvol: 31 mGy DLP: 540 mGycm COMPARISON: 11/13/2024 FINDINGS: Absent thyroid gland. Unremarkable axilla. Thoracic spine scoliosis and degeneration. Normal esophagus. Upper limits of normal heart size. No aortic dissection. No pulmonary embolism. Central airways are patent. Bronchial wall thickening. Dependent atelectasis. Mild emphysema. No consolidation, effusion or pneumothorax. On the left, series 2, image 119, 4 mm noncalcified upper lobe nodule. Recommend annual screening with low-dose chest CT.. On the right, no suspicious lung nodules. No acute upper abdominal findings. Diverticulosis. Status post cholecystectomy. Left-sided cardiac device. No acute chest wall findings. CT/CTA Chest W/WO Contrast IMPRESSION: No embolism, dissection, or pneumonia. Reading Location: [place] [address]
--- NOTE | 2024-11-14 04:08 | CT_ITS ---
PROCEDURE: CTA CHEST W/WO CONTRAST 11/14/2024 REASON FOR EXAM: HYPOXIA UNEXPLAINED TECHNIQUE: CTA CHEST W/WO CONTRAST Multiplanar Sagittal and Coronal images were obtained. CONTRAST: Isovue 3 7 VOLUME: 100 mL One or more dose reduction techniques were used (e.g., Automated exposure control, adjustment of the mA and/or kV according to patient size, use of iterative reconstruction technique). RADIATION DOSE SUMMARY: CTDlvol: 31 mGy DLP: 540 mGycm COMPARISON: 11/13/2024 FINDINGS: Absent thyroid gland. Unremarkable axilla. Thoracic spine scoliosis and degeneration. Normal esophagus. Upper limits of normal heart size. No aortic dissection. No pulmonary embolism. Central airways are patent. Bronchial wall thickening. Dependent atelectasis. Mild emphysema. No consolidation, effusion or pneumothorax. On the left, series 2, image 119, 4 mm noncalcified upper lobe nodule. Recommend annual screening with low-dose chest CT.. On the right, no suspicious lung nodules. No acute upper abdominal findings. Diverticulosis. Status post cholecystectomy. Left-sided cardiac device. No acute chest wall findings. CT/CTA Chest W/WO Contrast IMPRESSION: No embolism, dissection, or pneumonia. Reading Location: [place] [address]
--- OUTSIDE RECORDS SUMMARY | 2024-11-14 04:32 | XMS RPT_ITS | CCD ---
Author Organization [facility] Care Team Providers Care Acetaldehyde Converter Operator Name Role Phone Rafael Frankolphus Unavailable Unavailab [...] Mandeep Houser DO Primary Care Provider Timothy TONGN.PELLETIZER TENDER, Thuy Serrato Unavailable [phone] FLACA GREENFIELD Attending Unavailable HOUSER, MANDEEP L [...] Maycol Valladares MD Primary Care Provider [phone] Azam LEASING ASSISTANT.PELLETIZER TENDER, Rupali Adelina Unavailable Yasir LEASING ASSISTANT.PELLETIZER TENDER, Alejandrina Unavailable ZAINAB, CH Referring Unavailable Houser, [...] Care Unavailable ZAINAB, CH Attending Unavailable Marely LEASING ASSISTANT.PELLETIZER TENDER, Brittani Ji Unavailable [phone] HOUSER, MANDEEP [...] Unavailable RALEIGH HILLARA Attending Unavailable HouserDr. Mandeep paidlla DO Primary Care Provider Yusuf BRYAN, Dr. Garcia Emergency Provider Allergies Allergy Classification Reported Allergen(s) Allergy Type Date of Onset Reaction(s) Facility amLODIPine (2 sources) amLODIPine Drug Allergy 0 Intolerance [facility] Amoxicillin / Clavulanate (2 sources) Amoxicillin / Clavulanate Drug Allergy 3 GI Upset [facility] HMG-CoA Reductase Inhibitors (statins) (2 sources) atorvastatin Drug Allergy 0 Myalgia [facility] Opioid Agonists (2 sources) Codeine Drug Allergy 3 Mental Status Change [facility] Work Phone: Sulfonamides (antibiotic) (2 sources) Sulfonamides (Antibiotic) Drug Allergy 0 Intolerance [facility] (20 sources) amLODIPine; Translations: [AMLODIPINE] Drug Allergy 0 Other: See Comments, Intolerance [facility] (2 sources) Amoxicillin / Clavulanate Drug Allergy [facility] Work Phone: (20 sources) Codeine; Translations: [CODEINE] Drug Allergy 3 Dizziness, Mental Status Change [facility] Work Phone: (2 sources) Sulfonamides (Antibiotic) Allergy to drug (finding) Headache [facility] Work Phone: (20 sources) Amoxicillin / Clavulanate; Translations: [AMOXICILLIN-POT CLAVULANATE] Drug Allergy 3 GI Upset [facility] (20 sources) Angiotensin-conve rting enzyme inhibitor agent; Translations: [EMILIO INHIBITORS] Drug Allergy 0 Other: See Comments [facility] (20 sources) atorvastatin; Translations: [ATORVASTATIN] Drug Allergy 0 Myalgia [facility] (20 sources) beta-Blocking agent; Translations: [BETA-BLOCKERS (BETA-ADRENERGIC BLOCKING AGTS)] Drug Allergy 0 Other: See Comments [facility] (20 sources) Sulfonamides (Antibiotic); Translations: [SULFA (SULFONAMIDE ANTIBIOTICS)] Drug Allergy 0 Other: See Comments, Intolerance [facility] (20 sources) Angiotensin-conve rting enzyme inhibitor agent Drug Allergy 0 Other: See Comments, Intolerance [facility] (20 sources) beta-Blocking agent Drug Allergy 0 Other: See Comments, Intolerance [facility] (20 sources) sacubitril / valsartan; Translations: [SACUBITRIL-VALSA RTAN] Drug Allergy 4 Intolerance [facility] (1 source) Amoxicillin Drug Allergy 4 [facility] Repository (1 source) Clavulanate Drug Allergy 4 [facility] Repository (1 source) Amoxicillin Drug Allergy 5 PT UNSURE OF REACTION [facility] (1 source) Clavulanate Drug Allergy 5 PT UNSURE OF REACTION [facility] Medications Current Medications Medication Drug Class(es) Dates [...] as needed. Take 2 tablets by mo [facility] every 8 hours as needed for pain. [...] on above: Take 1 capsule by mo [facility] three times daily as needed for cough. [...] 1 tablet by jc th once daily. Hayes-3 Fatty Acids-Vitamin E (FISH OIL) 1,000 mg cap (1 source) End: 04-30-20 take 1 capsule by mouth once daily Hayes-3 Fatty Acids-Vitamin E (FISH OIL) 1,000 mg cap Take 1 capsule by mouth once daily. 0 04/30/2020 Discontinued Comment on above: Take 1 capsule by mo [facility] once daily. omeprazole 20 mg delayed release [...] End: 07-13-2023 [facility] OIL ORAL [facility] 0 07/13/2023 Discontinued OREGANO OIL [...] mg tablet Indications: Coronary artery disease involving paimiut coronary artery of paimiut heart with other form of angina pectoris [...] Coronary atherosclerosis; Translations: [Atherosclerotic heart disease of paimiut coronary artery with other forms of angina [...] 08-02-2022 Chronic Other aftercare (1 source) Other halfway (current) drug therapy; Translations: [Medication management] Onset: [...] Auto (Unsp spec) [#/Vol] 2.58 10*3/uL 0.83-4.51 [facility] Absolute neutrophil countOrd ered By: Jose Goldberg on 11-13-2024 Neutrophils (Bld) [#/Vol] 5.9 10*3/uL 2.0-7.7 [facility] Anion gap in Serum or Plasma Ordered By: Jose Goldberg on 11-13-2024 Anion gap [Moles/Vol] 12 mmol/L 5-15 [facility] Automated lymphocyte count a s percentage of total leukocytesOrdered By: Jose Goldberg on 11-13-2024 Lymphocytes/100 WBC Auto (Unsp spec) 26.8 % 19-41 [facility] BUN/creatinine ratioOrdered By: Jose Goldberg on 11-13-2024 Urea nitrogen/Creatinine [Mass ratio] 22.8 mg/mg High 10-20 [facility] Basophil percentageOrdered B y: Jose Goldberg on 11-13-2024 Basophils/100 WBC (Bld) 1.0 % 0-1 [facility] Bilirubin Test strip Ql (U)O rdered By: Jose Goldberg on 11-13-2024 Bilirubin Ql (U) Negative Negative [facility] CBC + diff autoon 11-13-2024 CBC W Auto Differential panel (Bld) [facility] Carbon dioxide, total [Moles /volume] in Central venous bloodOrdered By: Jose Goldberg on 11-13-2024 CO2 [Moles/Vol] 20.2 mmol/L Low 21.0-32.0 [facility] Chloride assayOrdered By: Skyla Goldberg on 11-13-2024 Chloride [Moles/Vol] 107 mmol/L 98-108 [facility] Eosinophil percentageOrdered By: Jose Goldberg on 11-13-2024 Eosinophils/100 WBC (Bld) 1.3 % 0-5 [facility] Erythrocyte distribution wid th ratioOrdered By: Jose Goldberg on 11-13-2024 Erythrocyte distribution width (RBC) [Ratio] 13.8 % 11.6-14.6 [facility] Erythrocyte distribution wid th standard deviationOrdered By: Jose Goldberg on 11-13-2024 Erythrocyte distribution width (RBC) [Ratio] 45.6 fl High 35.1-43.9 [facility] Glomerular filtration rate ( GFR) estimation/1.73 sq m using serum, plasma, or whole bOrdered By: Jose Goldberg on 11-13-2024 GFR/1.73 sq M.predicted among non-blacks MDRD (S/P/Bld) [Vol rate/Area] 61 mL/min/{1.73_m2} >60 [facility] Comment on above: mL/min/1.73m2 CKD-EP I Creatinine Equation (2020) Hematocrit Auto (Bld) [Volum e fraction]Ordered By: Jose Goldberg on 11-13-2024 Hematocrit (Bld) [Volume fraction] 37.5 % 37-47 [facility] Hemoglobin measurementOrdere d By: Jose Goldberg on 11-13-2024 Hemoglobin (Bld) [Mass/Vol] 12.1 g/dL 12.0-15.0 [facility] Immature granulocytes/100 WB C Auto (Bld)Ordered By: Jose Goldberg on 11-13-2024 Immature granulocytes/100 WBC (Bld) 0.700 % 0.0-0.9 [facility] Comment on above: IG% - Immature Granu locytes (promyelocytes, myelocytes and metamyelocytes) > 1% indicates that a LEFT SHIFT is Present. Ketones Test strip Ql (U)Ord ered By: Jose Goldberg on 11-13-2024 Ketones Ql (U) Negative Negative [facility] MCV (mean corpuscular volume ) determinationOrdered By: Jose Goldberg on 11-13-2024 MCV (RBC) [Entitic vol] 90.1 fL 81-99 [facility] Mean corpuscular hemoglobin (MCH) determinationOrdered By: Jose Goldberg on 11-13-2024 MCH (RBC) [Entitic mass] 29.1 pg 27.0-32.0 [facility] Mean corpuscular hemoglobin concentration (MCHC) determinationOrdered By: Jose Goldberg on 11-13-2024 MCHC (RBC) [Mass/Vol] 32.3 g/dL 32-36 [facility] Mean platelet volume determi nationOrdered By: Jose Goldberg on 11-13-2024 Platelet mean volume (Bld) [Entitic vol] 9.7 fL 6.2-12.0 [facility] Microscopic analysis of urin e for red blood cells (RBC)Ordered By: Jose Goldberg on 11-13-2024 Microscopic analysis of urine for red blood cells (RBC) 0 SEEN /hpf 0-5 [facility] Monocyte percentageOrdered B y: Jose Goldberg on 11-13-2024 Monocytes/100 WBC (Bld) 8.8 % 0-10 [facility] Mucus LM Ql (Urine sed)Order ed By: Jose Goldberg on 11-13-2024 Mucus Ql (Urine sed) 0 SEEN /hpf [facility] Neutrophil percentageOrdered By: Jose Goldberg on 11-13-2024 Neutrophils/100 WBC (Bld) 61.4 % 47-70 [facility] Nitrite Test strip Ql (U)Ord ered By: Jose Goldberg on 11-13-2024 Nitrite Ql (U) Negative Negative [facility] Nucleated red blood cell per centageOrdered By: Jose Goldberg on 11-13-2024 Nucleated RBC/100 WBC (Bld) [Ratio] 0 % 0-5 [facility] Platelet countOrdered By: Skyla Goldberg on 11-13-2024 Platelets (Bld) [#/Vol] 295 10*3/uL 150-450 [facility] Potassium measurement (mass/ volume)Ordered By: Jose Goldberg on 11-13-2024 Potassium (Unsp spec) [Mass/Vol] 4.3 mmol/L 3.3-5.1 [facility] Comment on above: Hemolysis present, R esults could be affected. Protein Test strip Ql (U)Ord ered By: Jose Goldberg on 11-13-2024 Protein Ql (U) 15 mg/dl High Negative [facility] RBC Auto (Bld) [#/Vol]Ordere d By: Jose Goldberg on 11-13-2024 RBC (Bld) [#/Vol] 4.16 10*6/uL Low 4.2-5.4 [facility] Serum creatinine measurement (mass/volume)Ordered By: Jose Goldberg on 11-13-2024 Creatinine [Mass/Vol] 0.96 mg/dL 0.70-1.20 [facility] Serum glucose measurement (m ass/volume)Ordered By: Jose Goldberg on 11-13-2024 Glucose [Mass/Vol] 122 mg/dL High 70-99 [facility] Serum or plasma calcium franklin urement (mass/volume)Ordered By: Jose Goldberg on 11-13-2024 Calcium [Mass/Vol] 9.3 mg/dL 7.6-11.0 [facility] Serum or plasma urea nitroge n measurement (mass/volume)Ordered By: Jose Goldberg on 11-13-2024 Urea nitrogen [Mass/Vol] 22 mg/dL High 4-19 [facility] Sodium levelOrdered By: Jermaine Goldberg on 11-13-2024 Sodium [Moles/Vol] 139 mmol/L 133-145 [facility] Squamous epithelial cells de tection in urine sediment by light microscopyOrdered By: Jose Goldberg on 11-13-2024 Epithelial cells.squamous LM Ql (Urine sed) 5-10 SEEN /hpf 5-10 [facility] Urine clarityOrdered By: Inna Goldberg on 11-13-2024 Clarity (U) Clear Clear [facility] Urine color determinationOrd ered By: Jose Goldberg on 11-13-2024 Color (U) Yellow Yellow [facility] Urine glucose detectionOrder ed By: Jose Goldberg on 11-13-2024 Glucose Ql (U) Normal mg/dl Normal [facility] Urine leukocyte esterase det ection by dipstickOrdered By: Jose Goldberg on 11-13-2024 Leukocyte esterase Test strip Ql (U) Negative Negative [facility] Urine pHOrdered By: Jose Goldberg on 11-13-2024 pH (U) 6.5 [pH] 5.0 - 8.0 [facility] Urine sediment bacteria coun t by microscopy (number/high power field)Ordered By: Jose Goldberg on 11-13-2024 Bacteria LM.HPF (Urine sed) [#/Area] RARE /hpf None Seen [facility] Urine specific gravity measu rementOrdered By: Jose Goldberg on 11-13-2024 Specific gravity (U) [Rel density] 1.010 1.002-1.030 [facility] Urine urobilinogen measureme ntOrdered By: Jose Goldberg on 11-13-2024 Urobilinogen Ql (U) Normal mg/dl Normal [facility] White blood cell (WBC) count Ordered By: Jose Goldberg on 11-13-2024 WBC (Bld) [#/Vol] 9.6 10*3/uL 4.4-11.0 [facility] White blood cell countOrdere d By: Jose Goldberg on 11-13-2024 White blood cell count 0-5 SEEN /hpf 0-5 [facility] ECG COMPLETEon 11-04-2024 Atrial Rate 63 BPM [facility] Calculated P [place] 16 degrees [facility] Calculated R [place] -81 degrees [facility] Calculated T [place] 24 degrees [facility] P-R Interval 118 ms [facility] QRS Duration 118 ms [facility] QT Interval 452 ms [facility] QTC Calculation (Bazett) 462 ms [facility] Ventricular Rate 63 BPM [facility] ATRIAL-SENSED VENTRICULAR-PACED RHYTHM WITH OCCASIONAL SINUS COMPLEXES ABNORMAL ECG Confirmed by GREGORIA MERCADO MD ([id number]) on 11/04/2024 1:01:22 PM [facility] NAME : SANDRA SCHMITZ PID : [id number] : 1945 Gender : Female Race : ORD : [id number] Procedure Date : Nov 03 2024 14:14:06 Edit Date : Nov 04 2024 13:01:29 Diagnosis: ATRIAL-SENSED VENTRICULAR-PACED RHYTHM WITH OCCASIONAL SINUS COMPLEXES ABNORMAL ECG Confirmed by GREGORIA MERCADO MD ([id number]) on 11/04/2024 1:01:22 PM Test Reason : I42.8 Nonischemic cardiomyopathy (HCC) [facility] : [facility] Overread By : GREGORIA MERCADO MD Edited By : GREGORIA MERCADO MD Referred By : DEANN Acquired by : LISANDRO, [facility] CNOVon 11-03-2024 CNOV Office Visit (CARDFV ) ----- SANDRA SCHMITZ ([id number]) 1945 F Date Time Provider Department 11/03/24 3:45 PM HOLTER/EVENT MONITOR EDENILSON WALLACE During your visit today, we recorded the following information about you: Dilcia Hooks MA 11/03/2024 3:58 PM Signed EVENT MONITOR DISPOSABLE PATCH INSTRUCTIONS Patient Name: Sandra Schmitz [facility] Number: [id number] Skin prepped and cleansed with alcohol Patch secured to prepped area Monitor Activated Serial #: [id number] Patient Instructed: Prescribed order timeframe Bathing guidelines Usage of event button and diary documentation Return of monitor at the end of prescribed order Call with problems [phone] or [phone] Patient expresses a good understanding of instructions [...] Assessed Primary Visit Diagnosis:Cardiac resynchronization therapy defibrillator (RN RENAL-D) in place [Z95.810] Prescriptions as of 11/03/2024 [...] right [M19.071] 08/02/2022 Coronary artery disease involving paimiut lopez*08/02/2022 Vitamin D deficiency [E55.9] 08/02/2022 Somatic dysfunction of head region [M99.00] 08/10/2022 Chronic neck pain [M54.2, G89.29] 08/24/2022 Chronic bronchitis (HCC) [J42] 09/11/2022 SVT (supraventricular tachycardia) (HCC) [I47.1*09/11/2022 Combined systolic and diastoli (more content not included)... Normal [facility] CNOV Office Visit (CACHFV ) ----- SANDRA SCHMITZ ([id number]) 1945 F Date Time Provider Department 11/03/24 3:30 PM PLII WELLS During your visit today, we recorded [...] and weight daily. Please notify us via Clipik if your Systolic BP (top number) < [...] heart kidney injury risk Please send a Titansan message or call with any questions or concerns: Outpatient Number: [phone] Thank you, Pili Wells MD Advanced Heart Failure and [place] [address] For [facility] patients , contact: [facility]- Section Of Heart Failure and Cardiac Transplant Medicine [facility] [place] [facility] - Desk [phone] Nurse Line and for Refills- call [phone] [facility] Scheduling Line- to make appointments- call [phone] Pili Wells MD 11/09/2024 5:30 PM Signed [facility] [place] [facility] SECTION OF HEART FAILURE and CARDIAC TRANSPLANT MEDICINE [facility] OUTPATIENT VISIT DATE November 03, 2024 OUTPATIENT VISIT TYPE Established PRIMARY CARE PHYSICIAN: Mandeep Houser [address] [place] [address] CHIEF COMPLAINT: Follow Up HISTORY OF PRESENT ILLNESS: Sandra Schmitz is a 78 year old female with a medical history that includes non-ischemic CM, HTN, Hypothyroidism, LBBB s/p RN RENAL-D who is referred to me for heart failure management. Sandra Schmitz was initially diagnosed with non-ischemic CM ~ 4 yrs ago and was doing well on losartan and metoprolol. She had progressive sxs of dyspnea on exertion, therefore she was started on entresto and farxiga and her sxs persisted and she was admitted locally in [place] and then transferred to for RN RENAL consideration. Interval History: Sandra Schmitz was last [...] LVEF 40%, LVEdd 4.8cm. LBBB: chronic. S/p RN RENAL 07/2023 Non-obstructive CAD: stable, ischemic testing recently [...] CHF (c (more content not included)... Normal [facility] CNOV Office Visit (CARDFV ) ----- SANDRA SCHMITZ ([id number]) 1945 F Date Time Provider Department 11/03/24 3:30 PM MORENITA HILLFV During your visit today, we recorded the following information about you: Pulse Blood pressure Weight Height 70/minute 119/71 86.2 kg 1.626 m Morenita Hill APRN.PELLETIZER TENDER 11/03/2024 3:59 PM Signed [facility] [place] Eduardo Department of Cardiovascular Medicine SECTION OF ELECTROPHYSIOLOGY AND PACING OUTPATIENT VISIT DATE November 03, 2024 OUTPATIENT VISIT TYPE ESTABLISHED PRIMARY CARE PHYSICIAN: Mandeep Houser [address] [place] [address] CHIEF COMPLAINT: Follow Up HISTORY OF PRESENT ILLNESS: Ms. Schmitz is a 79 year old female, patient of Dr. Wellington and Dr. Wells who presents today for a cardiovascular medicine follow-up visit regarding RN RENAL-D which was placed in July of last year during which time she had been admitted to [facility] for acute HFrEF and inability to initiate GDMT. She was deemed excellent candidate for RN RENAL therapy and thus had MDT RN RENAL-D inserted. Since then, Ms. Schmitz reports that overall she has been feeling well. She has noted over the last several months that when shh is anxious or rushing, she may feel her heart racing with some palpitations. When she rests, symptoms resolve. Overall, since device insertion, she has significantly improved functional capacity. She is compliant with all medications. PMH: Chronic NICM s/p MDT RN RENAL-D, dyslipidemia, hypothyroidism, Factor V Leiden, IBS, h/o gout PAST MEDICAL HISTORY Diagnosis Date Acute acalculous cholecystitis 05/30/2020 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 09/22/2020 Acute on chronic systolic CHF (congestive heart failure) ([facility]) 05/03/2020 Aspiration pneumonia ([facility]) 05/30/2020 Chest pain 05/03/2020 Chest pressure 01/23/2013 Chronic diastolic congestive heart failure ([facility]) 02/14/2021 Clostridium difficile diarrhea 09/28/2020 Complete uterovaginal prolapse Cystocele, midline Essential hypertension 06/14/2020 Homozygous Factor V Leiden mutation ([facility]) 05/03/2020 Hypothyroidism IBS (irritable bowel syndrome) 01/23/2013 [...] once daily (more content not included)... Normal [facility] ECG COMPLETEon 11-03-2024 ECG COMPLETE Ventricular Rate : 5 6 BPM Atrial Rate : 56 BPM P-R Interval : 122 ms QRS Duration : 124 ms Q-T Interval : 478 ms QTC Calculation(Bazett) : 461 ms Calculated P [place] : 36 degrees Calculated R [place] : -50 degrees Calculated T [place] : 89 degrees ATRIAL-SENSED VENTRICULAR-PACED RHYTHM ABNORMAL ECG Confirmed by GREGORIA MERCADO MD ([id number]) on 11/04/2024 1:01:15 PM NAME : SANDRA SCHMITZ PID : [id number] : 1945 Gender : Female Race : ORD : [id number] Procedure Date : Nov 03 2024 15:09:38 Edit Date : Nov 04 2024 13:01:17 Diagnosis: ATRIAL-SENSED VENTRICULAR-PACED RHYTHM ABNORMAL ECG Confirmed by GREGORIA MERCADO MD ([id number]) on 11/04/2024 1:01:15 PM Test Reason : Z95.810 Cardiac resynchronization therapy defibrillator (RN RENAL-D) in place Location : 225 : [facility] Overread By : GREGORIA MERCADO MD Edited By : GREGORIA MERCADO MD Referred By : JERED Acquired by : Terrie GRANT [facility] ECG COMPLETE Ventricular Rate : 6 3 BPM Atrial Rate : 63 BPM P-R Interval : 118 ms QRS Duration : 118 ms Q-T Interval : 452 ms QTC Calculation(Bazett) : 462 ms Calculated P [place] : 16 degrees Calculated R [place] : -81 degrees Calculated T [place] : 24 degrees ATRIAL-SENSED VENTRICULAR-PACED RHYTHM WITH OCCASIONAL SINUS COMPLEXES ABNORMAL ECG Confirmed by GREGORIA MERCADO MD ([id number]) on 11/04/2024 1:01:22 PM NAME : SANDRA SCHMITZ PID : [id number] : 1945 Gender : Female Race : ORD : [id number] Procedure Date : Nov 03 2024 14:14:06 [...] : DEANN Acquired by : Terrie MCMAHON [facility] CNOVon 10-21-2024 CNOV Office Visit (FAMPWS ) ----- SANDRA SCHMITZ ([id number]) 1945 F Date Time Provider Department 10/21/24 [...] on chronic systolic CHF (congestive heart failure) ([facility]) 05/03/2020 Aspiration pneumonia ([facility]) 05/30/2020 Chest pain 05/03/2020 Chest pressure 01/23/2013 Chronic diastolic congestive heart failure ([facility]) 02/14/2021 Clostridium difficile diarrhea 09/28/2020 Complete uterovaginal prolapse Cystocele, midline Essential hypertension 06/14/2020 Homozygous Factor V Leiden mutation ([facility]) 05/03/2020 Hypothyroidism IBS (irritable bowel syndrome) 01/23/2013 [...] without drainage, (more content not included)... Normal [facility] CNOVon 09-30-2024 CNOV Office Visit (FAMPWS ) ----- SANDRA SCHMITZ ([id number]) 1945 F Date Time Provider Department 09/30/24 [...] on chronic systolic CHF (congestive heart failure) ([facility]) 05/03/2020 Aspiration pneumonia ([facility]) 05/30/2020 Chest pain 05/03/2020 Chest pressure 01/23/2013 Chronic diastolic congestive heart failure ([facility]) 02/14/2021 Clostridium difficile diarrhea 09/28/2020 Complete uterovaginal prolapse Cystocele, midline Essential hypertension 06/14/2020 Homozygous Factor V Leiden mutation ([facility]) 05/03/2020 Hypothyroidism IBS (irritable bowel syndrome) 01/23/2013 [...] Left poste (more content not included)... Normal [facility] CNPNon 08-27-2024 CNPN Telephone ([facility]) ----- SANDRA SCHMITZ ([id number]) 1945 F Date Time Provider Department 08/27/24 DILCIA PEARSON [facility] During your visit today, we recorded the following information about you: Radha Buchanan 08/27/2024 10:21 AM Signed ----- Message from Dilcia Bonilla MD sent at 08/23/2024 9:30 AM EDT ----- I saw her in '24 Please reschedule with Mercedes + device Radha Buchanan 08/27/2024 10:22 AM Signed Call to patient to r/s. Patient is driving out from [place] and would prefer all appointments same day [...] right [M19.071] 08/02/2022 Coronary artery disease involving paimiut lopez*08/02/2022 Vitamin D deficiency [E55.9] 08/02/2022 Somatic [...] (HCC) [J96.01]07/13/19 (more content not included)... Normal [facility] CNOVon 08-25-2024 CNOV Office Visit (FAMPWS ) ----- SANDRA SCHMITZ ([id number]) 1945 F Date Time Provider Department 08/25/24 [...] on chronic systolic CHF (congestive heart failure) ([facility]) 05/03/2020 Aspiration pneumonia ([facility]) 05/30/2020 Chest pain 05/03/2020 Chest pressure 01/23/2013 Chronic diastolic congestive heart failure ([facility]) 02/14/2021 Clostridium difficile diarrhea 09/28/2020 Complete uterovaginal prolapse Cystocele, midline Essential hypertension 06/14/2020 Homozygous Factor V Leiden mutation ([facility]) 05/03/2020 Hypothyroidism IBS (irritable bowel syndrome) 01/23/2013 [...] cervical L (more content not included)... Normal [facility] ECHOon 08-15-2024 Echocardiography Echocardiography Rep ort: Transthoracic Echo [facility] Date of service: 08/15/2024 12:49:59 PM ASSESSOR Ordering physician: ANGEL CASTRO Indication: NICM Technologist: Teagan Murillo [facility] Interpreting physician: Gilmer Carpio MD PATIENT: Name: [...] * * Final * * * CC [employer] Image : [id number] Normal [facility] CNOVon 08-04-2024 CNOV Office Visit (FAMPWS ) ----- SANDRA SCHMITZ ([id number]) 1945 F Date Time Provider Department 08/04/24 2:00 PM [facility] visit today, we recorded [...] L1-2NRrSBr left (more content not included)... Normal [facility] CNOVon 07-21-2024 CNOV Office Visit (FAMPWS ) ----- SANDRA SCHMITZ ([id number]) 1945 F Date Time Provider Department 07/21/24 [...] October Would like to have her medical armhole baster jumpbasting more local for better accessibility She had labs and a chest xray Currently Cough, chest congestion, symptoms are improved. Just still with some fatigue but seems to be getting better. No further cough, no sputum production, no fevers or chills. Heart failure. Has an echo to get scheduled and completed for the armhole baster jumpbasting, taking her medications as prescribed. PAST MEDICAL HISTORY Diagnosis Date Acute acalculous cholecystitis 05/30/2020 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 09/22/2020 Acute on chronic systolic CHF (congestive heart failure) ([facility]) 05/03/2020 Aspiration pneumonia ([facility]) 05/30/2020 Chest pain 05/03/2020 Chest pressure 01/23/2013 [...] tobacco: Never (more content not included)... Normal [facility] 25(OH)D3 SerPl-mCncon 2024 25-hydroxyvitamin D3 [Mass/Vol] 26.0 ng/mL Low 31.0-80.0 [facility] Comment on above: Order Comment: Speci men Type: BLOOD SPECIMENOrdering Facility: [facility] Address: [address] [place] [address] Performed By: #### 1 989-3 ####[facility] LABIA [id number] [address] [place] Bacteria Ur Culton Bacteria identified Cx Nom (U) ORGANISM ID: 1 50,000-<100,000 CFU/ml Normal urogenital kash Normal [facility] Comment on above: Performed By: #### 6 30-4 ####[facility] LABCLIA [id number] [address] [place] CBC W Auto Differential pane l (Bld)on 07-08-2024 Basophils (Bld) [#/Vol] 0.12 10*3/uL High [facility] Basophils/100 WBC (Bld) 1.4 % [facility] Differential cell count method Nom (Bld) Auto [facility] Eosinophils (Bld) [#/Vol] 0.16 10*3/uL [facility] Eosinophils/100 WBC (Bld) 1.8 % [facility] Erythrocyte distribution width (RBC) [Ratio] 14.5 % 11.5 - 15.0 % [facility] Hematocrit (Bld) [Volume fraction] 43.4 % 36.0 - 46.0 % [facility] Hemoglobin (Bld) [Mass/Vol] 13.6 g/dL 11.5 - 15.5 g/dL [facility] Immature granulocytes (Bld) [#/Vol] 0.08 10*3/uL [facility] Immature granulocytes/100 WBC (Bld) 0.9 % [facility] Interpretation and review of laboratory results Abnormal [facility] Lymphocytes (Bld) [#/Vol] 3.59 10*3/uL [facility] Lymphocytes/100 WBC (Bld) 40.5 % [facility] MCH (RBC) [Entitic mass] 28.7 pg 26.0 - 34.0 pg [facility] MCHC (RBC) [Mass/Vol] 31.3 g/dL 30.5 - 36.0 g/dL [facility] MCV (RBC) [Entitic vol] 91.6 fL 80.0 - 100.0 fL [facility] Monocytes (Bld) [#/Vol] 0.81 10*3/uL NINF [facility] Monocytes/100 WBC (Bld) 9.1 % [facility] Neutrophils (Bld) [#/Vol] 4.11 10*3/uL [facility] Neutrophils/100 WBC (Bld) 46.3 % [facility] Nucleated RBC (Bld) [#/Vol] NINF [facility] Nucleated RBC/100 WBC (Bld) [Ratio] 0 % /100 WBC [facility] Platelet mean volume (Bld) [Entitic vol] 10.7 fL 9.0 - 12.7 fL [facility] Platelets (Bld) [#/Vol] 430 10*3/uL High [facility] RBC (Bld) [#/Vol] 4.74 10*6/uL 3.90 - 5.2 0 m/uL [facility] WBC (Bld) [#/Vol] 8.87 10*3/uL [facility] Basophils (Bld) [#/Vol] 0.12 10*3/uL High <0.11 [facility] Comment on above: Order Comment: Speci men Type: BLOOD SPECIMENOrdering Facility: [facility] Address: [address] [place] [address] Performed By: #### 5 7021-8 ####[facility] LABORATORYCLIA [id number] [address] STATES OF [facility] Basophils/100 WBC (Bld) 1.4 % Normal [facility] Comment on above: Order Comment: Speci men Type: BLOOD SPECIMENOrdering Facility: [facility] Address: [address] [place] [address] Performed By: #### 5 7021-8 ####[facility] LABORATORYCLIA [id number] [address] Differential cell count method Nom (Bld) Auto Normal [facility] Comment on above: Order Comment: Speci men Type: BLOOD SPECIMENOrdering Facility: [facility] Address: [address] [place] [address] Performed By: #### 5 7021-8 ####[facility] LABORATORYCLIA [id number] [address] [place] Eosinophils (Bld) [#/Vol] 0.16 10*3/uL Normal <0.46 [facility] Comment on above: Order Comment: Speci men Type: BLOOD SPECIMENOrdering Facility: [facility] Address: [address] [place] [address] Performed By: #### 5 7021-8 ####[facility] LABORATORYCLIA [id number] [address] STATES [facility] Eosinophils/100 WBC (Bld) 1.8 % Normal [facility] Comment on above: Order Comment: Speci men Type: BLOOD SPECIMENOrdering Facility: [facility] Address: [address] [place] [address] Performed By: #### 5 7021-8 ####[facility] LABORATORYCLIA [id number] [address] Erythrocyte distribution width (RBC) [Ratio] 14.5 % Normal 11.5-15.0 [facility] Comment on above: Order Comment: Speci men Type: BLOOD SPECIMENOrdering Facility: [facility] Address: [address] [place] [address] Performed By: #### 5 7021-8 ####[facility] LABORATORYCLIA [id number] [address] Hematocrit (Bld) [Volume fraction] 43.4 % Normal 36.0-46.0 [facility] Comment on above: Order Comment: Speci men Type: BLOOD SPECIMENOrdering Facility: [facility] Address: [address] [place] [address] Performed By: #### 5 7021-8 ####[facility] LABORATORYCLIA [id number] [place] [id number] [place] Hemoglobin (Bld) [Mass/Vol] 13.6 g/dL Normal 11.5-15.5 [facility] Comment on above: Order Comment: Speci men Type: BLOOD SPECIMENOrdering Facility: [facility] Address: [address] [place] [address] Performed By: #### 5 7021-8 ####[facility] LABORATORYCLIA [id number] [place] [id number] [place] Immature granulocytes (Bld) [#/Vol] 0.08 10*3/uL Normal <0.10 [facility] Comment on above: Order Comment: Speci men Type: BLOOD SPECIMENOrdering Facility: [facility] Address: [address] [place] [address] Performed By: #### 5 7021-8 ####[facility] LABORATORYCLIA [id number] [place] [address] [place] Immature granulocytes/100 WBC (Bld) 0.9 % Normal [facility] Comment on above: Order Comment: Speci men Type: BLOOD SPECIMENOrdering Facility: [facility] Address: [address] [place] [address] Performed By: #### 5 7021-8 ####[facility] LABORATORYCLIA [id number] [place] [id number] [place] Lymphocytes (Bld) [#/Vol] 3.59 10*3/uL Normal 1.00-4.00 [facility] Comment on above: Order Comment: Speci men Type: BLOOD SPECIMENOrdering Facility: [facility] Address: [address] [place] [address] Performed By: #### 5 7021-8 ####[facility] LABORATORYCLIA [id number] [place] [id number] [place] Lymphocytes/100 WBC (Bld) 40.5 % Normal [facility] Comment on above: Order Comment: Speci men Type: BLOOD SPECIMENOrdering Facility: [facility] Address: [address] [place] [address] Performed By: #### 5 7021-8 ####[facility] LABORATORYCLIA [id number] [address] MCH (RBC) [Entitic mass] 28.7 pg Normal 26.0-34.0 [facility] Comment on above: Order Comment: Speci men Type: BLOOD SPECIMENOrdering Facility: [facility] Address: [address] [place] [address] Performed By: #### 5 7021-8 ####[facility] LABORATORYCLIA [id number] [address] [place] MCHC (RBC) [Mass/Vol] 31.3 g/dL Normal 30.5-36.0 [facility] Comment on above: Order Comment: Speci men Type: BLOOD SPECIMENOrdering Facility: [facility] Address: [address] [place] [address] Performed By: #### 5 7021-8 ####[facility] LABORATORYCLIA [id number] [address] [place] MCV (RBC) [Entitic vol] 91.6 fL Normal 80.0-100.0 [facility] Comment on above: Order Comment: Speci men Type: BLOOD SPECIMENOrdering Facility: [facility] Address: [address] [place] [address] Performed By: #### 5 7021-8 ####[facility] LABORATORYCLIA [id number] [address] [place] Monocytes (Bld) [#/Vol] 0.81 10*3/uL Normal <0.87 [facility] Comment on above: Order Comment: Speci men Type: BLOOD SPECIMENOrdering Facility: [facility] Address: [address] [place] [address] Performed By: #### 5 7021-8 ####[facility] LABORATORYCLIA [id number] [address] [place] Monocytes/100 WBC (Bld) 9.1 % Normal [facility] Comment on above: Order Comment: Speci men Type: BLOOD SPECIMENOrdering Facility: [facility] Address: [address] [place] [address] Performed By: #### 5 7021-8 ####[facility] LABORATORYCLIA [id number] [place] [address] [place] Neutrophils (Bld) [#/Vol] 4.11 10*3/uL Normal 1.45-7.50 [facility] Comment on above: Order Comment: Speci men Type: BLOOD SPECIMENOrdering Facility: [facility] Address: [address] [place] [address] Performed By: #### 5 7021-8 ####[facility] LABORATORYCLIA [id number] [place] [address] [place] Neutrophils/100 WBC (Bld) 46.3 % Normal [facility] Comment on above: Order Comment: Speci men Type: BLOOD SPECIMENOrdering Facility: [facility] Address: [address] [place] [address] Performed By: #### 5 7021-8 ####[facility] LABORATORYCLIA [id number] [place] [address] [place] Nucleated RBC (Bld) [#/Vol] 10*3/uL Normal <0.01 [facility] Comment on above: Order Comment: Speci men Type: BLOOD SPECIMENOrdering Facility: [facility] Address: [address] [place] [address] Performed By: #### 5 7021-8 ####[facility] LABORATORYCLIA [id number] [place] [address] [place] Nucleated RBC/100 WBC (Bld) [Ratio] 0.0 /100 WBC Normal [facility] Comment on above: Order Comment: Speci men Type: BLOOD SPECIMENOrdering Facility: [facility] Address: [address] [place] [address] Performed By: #### 5 7021-8 ####[facility] LABORATORYCLIA [id number] [address] [place] Platelet mean volume (Bld) [Entitic vol] 10.7 fL Normal 9.0-12.7 [facility] Comment on above: Order Comment: Speci men Type: BLOOD SPECIMENOrdering Facility: [facility] Address: [address] [place] [address] Performed By: #### 5 7021-8 ####[facility] LABORATORYCLIA [id number] [place] [address] [place] Platelets (Bld) [#/Vol] 430 10*3/uL High 150-400 [facility] Comment on above: Order Comment: Speci men Type: BLOOD SPECIMENOrdering Facility: [facility] Address: [address] [place] [address] Performed By: #### 5 7021-8 ####[facility] LABORATORYCLIA [id number] [place] [address] [place] RBC (Bld) [#/Vol] 4.74 10*6/uL Normal 3.90-5.20 [facility] Comment on above: Order Comment: Speci men Type: BLOOD SPECIMENOrdering Facility: [facility] Address: [address] [place] [address] Performed By: #### 5 7021-8 ####[facility] LABORATORYCLIA [id number] [place] [id number] [place] WBC (Bld) [#/Vol] 8.87 10*3/uL Normal 3.70-11.00 [facility] Comment on above: Order Comment: Speci men Type: BLOOD SPECIMENOrdering Facility: [facility] Address: [address] [place] [address] Performed By: #### 5 7021-8 ####[facility] LABORATORYCLIA [id number] [address] [place] CNOVon 07-08-2024 CNOV Office Visit (FAMPWS ) ----- SANDRA SCHMITZ ([id number]) 1945 F Date Time Provider Department 07/08/24 2:00 PM MANDEEP HOUSER During your visit today, we recorded the following information about you: Pulse Blood pressure Weight 66/minute 110/70 83.5 kg Mandeep Houser DO 07/08/2024 2:50 PM Signed Milieu Therapist local options Dr.Sleik Dr. Downs Options for mood Low dose of valerian root 250-500 mg in the evening Light box therapy consideration of light at 10,000 Lux strength- 20-30 minutes a day in the AM from Feb through August to help mood, can buy this on [employer] for use Mandeep Houser DO 07/08/2024 3:48 [...] October Would like to have her medical armhole baster jumpbasting more local for better accessibility PAST MEDICAL HISTORY Diagnosis Date Acute acalculous cholecystitis 05/30/2020 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 09/22/2020 Acute on chronic systolic CHF (congestive heart failure) ([facility]) 05/03/2020 Aspiration pneumonia ([facility]) 05/30/2020 Chest pain 05/03/2020 Chest pressure 01/23/2013 Chronic diastolic congestive heart failure ([facility]) 02/14/2021 Clostridium difficile diarrhea 09/28/2020 Complete uterovaginal [...] use: No (more content not included)... Normal [facility] Comprehensive metabolic 2000 panelon 07-08-2024 Albumin [Mass/Vol] 4.3 g/dL Normal 3.9-4.9 [facility] Comment on above: Order Comment: Speci men Type: BLOOD SPECIMENOrdering Facility: [facility] Address: [address] [place] [address] Performed By: #### 2 132-9, 88055-3 ####[facility] LABORATORYCLIA [id number] [address] STATES OF [facility] ALP [Catalytic activity/Vol] 82 U/L Normal 34-123 [facility] Comment on above: Order Comment: Speci men Type: BLOOD SPECIMENOrdering Facility: [facility] Address: [address] [place] [address] Performed By: #### 2 132-9, 08464-6 ####[facility] LABORATORYCLIA [id number] [address] [place] ALT With P-5'-P [Catalytic activity/Vol] 11 U/L Normal 7-38 [facility] Comment on above: Order Comment: Speci men Type: BLOOD SPECIMENOrdering Facility: [facility] Address: [address] [place] [address] Performed By: #### 2 132-9, 02407-2 ####[facility] LABORATORYCLIA [id number] [place] [address] [place] Anion gap [Moles/Vol] 12 mmol/L Normal 8-15 [facility] Comment on above: Order Comment: Speci men Type: BLOOD SPECIMENOrdering Facility: [facility] Address: [address] [place] [address] Performed By: #### 2 132-9, 50144-9 ####[facility] LABORATORYCLIA [id number] [place] [address] [place] AST With P-5'-P [Catalytic activity/Vol] 16 U/L Normal 13-35 [facility] Comment on above: Order Comment: Speci men Type: BLOOD SPECIMENOrdering Facility: [facility] Address: [address] [place] [address] Performed By: #### 2 132-9, 38233-7 ####[facility] LABORATORYCLIA [id number] [place] [address] [place] Bilirubin [Mass/Vol] 0.7 mg/dL Normal 0.2-1.3 [facility] Comment on above: Order Comment: Speci men Type: BLOOD SPECIMENOrdering Facility: [facility] Address: [address] [place] [address] Performed By: #### 2 132-9, 95377-9 ####[facility] LABORATORYCLIA [id number] [place] [address] [place] Calcium [Mass/Vol] 9.8 mg/dL Normal 8.5-10.2 [facility] Comment on above: Order Comment: Speci men Type: BLOOD SPECIMENOrdering Facility: [facility] Address: [address] [place] [address] Performed By: #### 2 132-9, 18461-6 ####[facility] LABORATORYCLIA [id number] [place] [address] [place] Chloride [Moles/Vol] 102 mmol/L Normal 98-107 [facility] Comment on above: Order Comment: Speci men Type: BLOOD SPECIMENOrdering Facility: [facility] Address: [address] [place] [address] Performed By: #### 2 132-9, 76038-7 ####[facility] HoldingsLUIS [address] [facility] LABORATORYCLIA [id number] [place] [address] [place] CO2 [Moles/Vol] 26 mmol/L Normal 22-30 [facility] Comment on above: Order Comment: Speci men Type: BLOOD SPECIMENOrdering Facility: [facility] Address: [address] [place] [address] Performed By: #### 2 132-9, ####[facility] HoldingsROANE GENERAL HOSPITALIA [id number] [address] OF [facility] Creatinine [Mass/Vol] 0.85 mg/dL Normal 0.58-0.96 [facility] Comment on above: Order Comment: Speci men Type: BLOOD SPECIMENOrdering Facility: [facility] Address: [address] [place] [address] Performed By: #### 2 132-9, 87568-3 ####[facility] HoldingsROANE GENERAL HOSPITALIA [id number] [address] Creatinine and Glomerular filtration rate.predicted panel (S/P/Bld) 71 mL/min/1.73m??? Normal >=60 [facility] Comment on above: Order Comment: Speci men Type: BLOOD SPECIMENOrdering Facility: [facility] Address: [address] [place] [address] Result Comment: Aaron mated Glomerular Filtration Rate [...] actual GFR. Performed By: #### 2 132-9, 67861-1 ####[employer] [facility] LABORATORYCLIA [id number] [place] [id number] [place] Glucose [Mass/Vol] 86 mg/dL Normal 74-99 [facility] Comment on above: Order Comment: Lenard men Type: BLOOD SPECIMENOrdering Facility: [facility] Address: [address] [place], [place] [address] Result Comment: The [place] Diabetes Association (ADA) provides guidance for cutoff [...] Standards of Medical Care in Diabetes 2016, [place] Diabetes Association. Diabetes Care. 2016.39(Suppl 1). Performed By: #### 2 132-9, 73228-8 ####[facility] LABORATORYCLIA [id number] [place] [id number] [place] Potassium [Moles/Vol] 4.9 mmol/L Normal 3.7-5.1 [facility] Comment on above: Order Comment: Lenard jesus Type: BLOOD SPECIMENOrdering Facility: [facility] Address: [address] [place], [place] [address] Performed By: #### 2 132-9, ####[facility] LABORATORYCLIA [id number] [place] [address] [place] Protein [Mass/Vol] 7.4 g/dL Normal 6.3-8.0 [facility] Comment on above: Order Comment: Lenard jesus Type: BLOOD SPECIMENOrdering Facility: [facility] Address: [address] [place], [place] [address] Performed By: #### 2 132-9, 71523-3 ####[facility] LABORATORYCLIA [id number] [place] [address] [place] Sodium [Moles/Vol] 140 mmol/L Normal 136-144 [facility] Comment on above: Order Comment: Speci men Type: BLOOD SPECIMENOrdering Facility: [facility] Address: [address] [place] [address] Performed By: #### 2 132-9, 52064-5 ####[facility] LABORATORYCLIA [id number] [place] [address] [place] Urea nitrogen [Mass/Vol] 23 mg/dL High 7-21 [facility] Comment on above: Order Comment: Speci men Type: BLOOD SPECIMENOrdering Facility: [facility] Address: [address] [place] [address] Performed By: #### 2 132-9, 87466-2 ####[facility] LABORATORYCLIA [id number] [place] [address] [place] Magnesium SerPl-mCncon 07-08 Magnesium [Mass/Vol] 2.0 mg/dL Normal 1.7-2.3 [facility] Comment on above: Order Comment: Speci men Type: BLOOD SPECIMENOrdering Facility: [facility] Address: [address] [place] [address] Performed By: #### 3 016-3, 96968-9, 54191-3, 7 ####[facility] LABORATORYCLIA [id number] [place] [address] [place] NT-proBNP SerPl-mCncon 07-08 Natriuretic peptide.B prohormone N-Terminal [Mass/Vol] 2199 pg/mL High <450 [facility] Comment on above: Order Comment: Speci men Type: BLOOD SPECIMENOrdering Facility: [facility] Address: [address] [place] [address] Performed By: #### 3 016-3, 85913-8, , 3023-11 ####[facility] LABORATORYCLIA [id number] [place] [address] [place] T4 Free SerPl-mCncon 07-08- 025 Free T4 [Mass/Vol] 1.8 ng/dL High 0.9-1.7 [facility] Comment on above: Order Comment: Speci men Type: BLOOD SPECIMENOrdering Facility: [facility] Address: [address] [place] [address] Performed By: #### 3 016-3, 81885-1, 57261-2, 3024-7 ####[facility] LABORATORYCLIA [id number] [place] [address] [place] TSH SerPl-aCncon 07-08-2024 TSH Qn 0.814 m[IU]/L Normal 0.270-4.200 [facility] Comment on above: Order Comment: Speci men Type: BLOOD SPECIMENOrdering Facility: [facility] Address: [address] [place] [address] Performed By: #### 3 016-3, 18712-3, 62002-5, 3024-7 ####[facility] LABORATORYCLIA [id number] [place] [address] [place] Urinalysis complete panel (U )on 07-08-2024 Bacteria LM.HPF (Urine sed) [#/Area] Negative Normal Negative [facility] Comment on above: Order Comment: Speci men Type: URINE SPECIMENOrdering Facility: [facility] Address: [address] [place] [address] Performed By: #### 2 4356-8 ####[facility] LABCLIA [id number] [place] [address] [place] Bilirubin Ql (U) Negative Normal Negative [facility] Comment on above: Order Comment: Speci men Type: URINE SPECIMENOrdering Facility: [facility] Address: [address] [place] [address] Performed By: #### 2 4356-8 ####[facility] LABCLIA [id number] [place] [address] [place] Clarity (Unsp spec) Clear Normal Clear [facility] Comment on above: Order Comment: Speci men Type: URINE SPECIMENOrdering Facility: [facility] Address: [address] [place] [address] Performed By: #### 2 4356-8 ####[facility] LABCLIA [id number] [address], [place] [address] [place] Color (U) Yellow Normal Yellow [facility] Comment on above: Order Comment: Speci men Type: URINE SPECIMENOrdering Facility: [facility] Address: [address] [place] [address] Performed By: #### 2 4356-8 ####[facility] LABIA [id number] [address], [place] [address] [place] Epithelial cells LM.HPF (Urine sed) [#/Area] Few Normal [facility] Comment on above: Order Comment: Speci men Type: URINE SPECIMENOrdering Facility: [facility] Address: [address] [place] [address] Performed By: #### 2 4356-8 ####[facility] LABIA [id number] [address], [facility]95 [place] Glucose Test strip (U) [Mass/Vol] Negative Normal Negative [facility] Comment on above: Order Comment: Speci men Type: URINE SPECIMENOrdering Facility: [facility] Address: [address] [place] [address] Performed By: #### 2 4356-8 ####[facility] LABIA [id number] [address], [facility]95 [place] Hemoglobin Ql (U) Negative Normal Negative [facility] Comment on above: Order Comment: Speci men Type: URINE SPECIMENOrdering Facility: [facility] Address: [address] [place] [address] Performed By: #### 2 4356-8 ####[facility] LABCLIA [id number] [address] [place] [address] [place] Hyaline casts (Urine sed) [#/Area] 0 /[LPF] Normal 0 /LPF [facility] Comment on above: Order Comment: Speci men Type: URINE SPECIMENOrdering Facility: [facility] Address: [address] [place] [address] Performed By: #### 2 4356-8 ####[facility] LABCLIA [id number] [facility] [address] [place] [address] [place] Ketones Ql (U) Negative Normal Negative [facility] Comment on above: Order Comment: Speci men Type: URINE SPECIMENOrdering Facility: [facility] Address: [address] [place] [address] Performed By: #### 2 4356-8 ####[facility] LABCLIA [id number] [address], [facility]95 [place] Leukocyte esterase Test strip Ql (U) Negative Normal Negative [facility] Comment on above: Order Comment: Speci men Type: URINE SPECIMENOrdering Facility: [facility] Address: [address] [place] [address] Performed By: #### 2 4356-8 ####[facility] LABCLIA [id number] [address], [facility]95 [place] Nitrite Ql (U) Negative Normal Negative [facility] Comment on above: Order Comment: Speci men Type: URINE SPECIMENOrdering Facility: [facility] Address: [address] [place] [address] Performed By: #### 2 4356-8 ####[facility] LABCLIA [id number] [address] [place] [address] [place] pH (U) 6.0 [pH] Normal <8.5 [facility] Comment on above: Order Comment: Speci men Type: URINE SPECIMENOrdering Facility: [facility] Address: [address] [place] [address] Performed By: #### 2 4356-8 ####[facility] LABCLIA [id number] [address] [place] [address] [place] Protein (U) [Mass/Vol] Negative Normal Negative [facility] Comment on above: Order Comment: Speci men Type: URINE SPECIMENOrdering Facility: [facility] Address: [address] [place] [address] Performed By: #### 2 4356-8 ####[facility] [id number] [place] [address] [place] RBC LM.HPF (Urine sed) [#/Area] 0-2 /HPF Normal 0-2 /HPF [facility] Comment on above: Order Comment: Speci men Type: URINE SPECIMENOrdering Facility: [facility] Address: [address] [place] [address] Performed By: #### 2 4356-8 ####[facility] [id number] [place] [address] [place] Specific gravity (U) [Rel density] 1.022 Normal 1.005-1.030 [facility] Comment on above: Order Comment: Speci men Type: URINE SPECIMENOrdering Facility: [facility] Address: [address] [place] [address] Performed By: #### 2 4356-8 ####[facility] [id number] [address] [place] Urobilinogen Ql (U) 0.2 EU/dL Normal 0.2-1.0 EU/dL [facility] Comment on above: Order Comment: Speci men Type: URINE SPECIMENOrdering Facility: [facility] Address: [address] [place] [address] Performed By: #### 2 4356-8 ####[facility] [id number] [place] [address] [place] WBC LM.HPF (Urine sed) [#/Area] 0-5 /HPF Normal 0-5 /HPF [facility] Comment on above: Order Comment: Speci men Type: URINE SPECIMENOrdering Facility: [facility] Address: [address] [place] [address] Performed By: #### 2 4356-8 ####[facility] LABCLIA [id number] [place] [address] [place] Vit B12 SerPl-mCncon 07-08- 025 Cobalamin (Vitamin B12) [Mass/Vol] pg/mL High 232-1245 [facility] Comment on above: Order Comment: Speci men Type: BLOOD SPECIMENOrdering Facility: [facility] Address: [address] [place] [address] Performed By: #### 2 132-9, 55701-3 ####[facility] LABORATORYCLIA [id number] [place] [id number] [place] XR CHEST 2V [...] and scoliosis. IMPRESSION: No acute radiographic abnormality. Tricot Knitter: PSCB Transcribe Date/Time: Jul 09 2024 11:46A Dictated by : PERLA ONEILL MD This examination was interpreted and the report reviewed and electronically signed by: PERLA ONEILL MD on Jul 09 2024 11:47AM EST [id number] Normal [facility] CNPPadmini 07-01-2024 CNPN Telephone (FAMPWS) ----- NADIRSANDRA ([id number]) 1945 F Date Time Provider Department 07/01/24 [...] right [M19.071] 08/02/2022 Coronary artery disease involving paimiut lopez*08/02/2022 Vitamin D deficiency [E55.9] 08/02/2022 Somatic [...] 07/13/2023 Ac (more content not included)... Normal [facility] CNOVon 06-20-2024 CNOV Office Visit (FAMPWS ) ----- SANDRA SCHMITZ ([id number]) 1945 F Date Time Provider Department 06/20/24 [...] on chronic systolic CHF (congestive heart failure) ([facility]) 05/03/2020 Aspiration pneumonia ([facility]) 05/30/2020 Chest pain 05/03/2020 Chest pressure 01/23/2013 Chronic diastolic congestive heart failure ([facility]) 02/14/2021 Clostridium difficile diarrhea 09/28/2020 Complete uterovaginal prolapse Cystocele, midline Essential hypertension 06/14/2020 Homozygous Factor V Leiden mutation ([facility]) 05/03/2020 Hypothyroidism IBS (irritable bowel syndrome) 01/23/2013 [...] Right a (more content not included)... Normal [facility] CNCOon 06-06-2024 CNCO Letter Text Normal [facility] CNOVon 05-30-2024 CNOV Office Visit (FAMPWS ) ----- SANDRA SCHMITZ ([id number]) 1945 F [place]* Date Time Provider [...] on chronic systolic CHF (congestive heart failure) ([facility]) 05/03/2020 Aspiration pneumonia ([facility]) 05/30/2020 Chest pain 05/03/2020 Chest pressure 01/23/2013 Chronic diastolic congestive heart failure ([facility]) 02/14/2021 Clostridium difficile diarrhea 09/28/2020 Complete uterovaginal prolapse Cystocele, midline Essential hypertension 06/14/2020 Homozygous Factor V Leiden mutation ([facility]) 05/03/2020 Hypothyroidism IBS (irritable bowel syndrome) 01/23/2013 [...] head, C3-6NRrSBr (more content not included)... Normal [facility] CNOVon 05-12-2024 CNOV Office Visit (FAMPWS ) ----- SANDRA SCHMITZ ([id number]) 1945 F [place]* Date Time Provider Department 05/12/24 3:20 [facility] we recorded [...] on chronic systolic CHF (congestive heart failure) ([facility]) 05/03/2020 Aspiration pneumonia ([facility]) 05/30/2020 Chest pain 05/03/2020 Chest pressure 01/23/2013 Chronic diastolic congestive heart failure ([facility]) 02/14/2021 Clostridium difficile diarrhea 09/28/2020 Complete uterovaginal prolapse Cystocele, midline Essential hypertension 06/14/2020 Homozygous Factor V Leiden mutation ([facility]) 05/03/2020 Hypothyroidism IBS (irritable bowel syndrome) 01/23/2013 [...] posterior T3-10ERrSBl (more content not included)... Normal [facility] CBC W Auto Differential pane l (Bld)on 04-22-2024 Basophils (Bld) [#/Vol] 0.11 10*3/uL High [facility] Basophils/100 WBC (Bld) 0.8 % [facility] Differential cell count method Nom (Bld) Auto [facility] Eosinophils (Bld) [#/Vol] 0.19 10*3/uL [facility] Eosinophils/100 WBC (Bld) 1.3 % [facility] Erythrocyte distribution width (RBC) [Ratio] 14.1 % 11.5 - 15.0 % [facility] Hematocrit (Bld) [Volume fraction] 41.0 % 36.0 - 46.0 % [facility] Hemoglobin (Bld) [Mass/Vol] 12.5 g/dL 11.5 - 15.5 g/dL [facility] Immature granulocytes (Bld) [#/Vol] 0.09 10*3/uL [facility] Immature granulocytes/100 WBC (Bld) 0.6 % [facility] Interpretation and review of laboratory results Abnormal [facility] Lymphocytes (Bld) [#/Vol] 4.47 10*3/uL High [facility] Lymphocytes/100 WBC (Bld) 31.0 % [facility] MCH (RBC) [Entitic mass] 28.0 pg 26.0 - 34.0 pg [facility] MCHC (RBC) [Mass/Vol] 30.5 g/dL 30.5 - 36.0 g/dL [facility] MCV (RBC) [Entitic vol] 91.7 fL 80.0 - 100.0 fL [facility] Monocytes (Bld) [#/Vol] 1.29 10*3/uL High NINF [facility] Monocytes/100 WBC (Bld) 8.9 % [facility] Neutrophils (Bld) [#/Vol] 8.29 10*3/uL High [facility] Neutrophils/100 WBC (Bld) 57.4 % [facility] Nucleated RBC (Bld) [#/Vol] NINF [facility] Nucleated RBC/100 WBC (Bld) [Ratio] 0.0 % /100 WBC [facility] Platelet mean volume (Bld) [Entitic vol] 10.4 fL 9.0 - 12.7 fL [facility] Platelets (Bld) [#/Vol] 317 10*3/uL [facility] RBC (Bld) [#/Vol] 4.47 10*6/uL 3.90 - 5.2 0 m/uL [facility] WBC (Bld) [#/Vol] 14.44 10*3/uL High [facility] Basophils (Bld) [#/Vol] 0.11 10*3/uL High <0.11 [facility] Comment on above: Order Comment: Speci men Type: BLOOD SPECIMENOrdering Facility: [facility] Address: [address] [place] [address] Performed By: #### 5 7021-8 ####[facility] LABCLIA [id number] [place] [address] [place] Basophils/100 WBC (Bld) 0.8 % Normal [facility] Comment on above: Order Comment: Speci men Type: BLOOD SPECIMENOrdering Facility: [facility] Address: [address] [place] [address] Performed By: #### 5 7021-8 ####[facility] LABCLIA [id number] [place] [address] [place] Differential cell count method Nom (Bld) Auto Normal [facility] Comment on above: Order Comment: Speci men Type: BLOOD SPECIMENOrdering Facility: [facility] Address: [address] [place] [address] Performed By: #### 5 7021-8 ####[facility] LABCLIA [id number] [place] [address] [place] Eosinophils (Bld) [#/Vol] 0.19 10*3/uL Normal <0.46 [facility] Comment on above: Order Comment: Speci men Type: BLOOD SPECIMENOrdering Facility: [facility] Address: [address] [place] [address] Performed By: #### 5 7021-8 ####[facility] LABCLIA [id number] [place] [address] [place] Eosinophils/100 WBC (Bld) 1.3 % Normal [facility] Comment on above: Order Comment: Speci men Type: BLOOD SPECIMENOrdering Facility: [facility] Address: [address] [place] [address] Performed By: #### 5 7021-8 ####[facility] LABCLIA [id number] [place] [address] [place] Erythrocyte distribution width (RBC) [Ratio] 14.1 % Normal 11.5-15.0 [facility] Comment on above: Order Comment: Speci men Type: BLOOD SPECIMENOrdering Facility: [facility] Address: [address] [place] [address] Performed By: #### 5 7021-8 ####[facility] LABCLIA [id number] [place] [address] [place] Hematocrit (Bld) [Volume fraction] 41.0 % Normal 36.0-46.0 [facility] Comment on above: Order Comment: Speci men Type: BLOOD SPECIMENOrdering Facility: [facility] Address: [address] [place] [address] Performed By: #### 5 7021-8 ####[facility] LABCLIA [id number] [place] [address] [place] Hemoglobin (Bld) [Mass/Vol] 12.5 g/dL Normal 11.5-15.5 [facility] Comment on above: Order Comment: Speci men Type: BLOOD SPECIMENOrdering Facility: [facility] Address: [address] [place] [address] Performed By: #### 5 7021-8 ####[facility] LABCLIA [id number] [place] [address] [place] Immature granulocytes (Bld) [#/Vol] 0.09 10*3/uL Normal <0.10 [facility] Comment on above: Order Comment: Speci men Type: BLOOD SPECIMENOrdering Facility: [facility] Address: [address] [place] [address] Performed By: #### 5 7021-8 ####[facility] LABCLIA [id number] [place] [address] [place] Immature granulocytes/100 WBC (Bld) 0.6 % Normal [facility] Comment on above: Order Comment: Speci men Type: BLOOD SPECIMENOrdering Facility: [facility] Address: [address] [place] [address] Performed By: #### 5 7021-8 ####[facility] LABCLIA [id number] [place] [address] [place] Lymphocytes (Bld) [#/Vol] 4.47 10*3/uL High 1.00-4.00 [facility] Comment on above: Order Comment: Speci men Type: BLOOD SPECIMENOrdering Facility: [facility] Address: [address] [place] [address] Performed By: #### 5 7021-8 ####[facility] LABIA [id number] [place] [address] [place] Lymphocytes/100 WBC (Bld) 31.0 % Normal [facility] Comment on above: Order Comment: Speci men Type: BLOOD SPECIMENOrdering Facility: [facility] Address: [address] [place] [address] Performed By: #### 5 7021-8 ####[facility] LABIA [id number] [place] [address] [place] MCH (RBC) [Entitic mass] 28.0 pg Normal 26.0-34.0 [facility] Comment on above: Order Comment: Speci men Type: BLOOD SPECIMENOrdering Facility: [facility] Address: [address] [place] [address] Performed By: #### 5 7021-8 ####[facility] LABIA [id number] [place] [address] [place] MCHC (RBC) [Mass/Vol] 30.5 g/dL Normal 30.5-36.0 [facility] Comment on above: Order Comment: Speci men Type: BLOOD SPECIMENOrdering Facility: [facility] Address: [address] [place] [address] Performed By: #### 5 7021-8 ####[facility] LABIA [id number] [place] [address] [place] MCV (RBC) [Entitic vol] 91.7 fL Normal 80.0-100.0 [facility] Comment on above: Order Comment: Speci men Type: BLOOD SPECIMENOrdering Facility: [facility] Address: [address] [place] [address] Performed By: #### 5 7021-8 ####[facility] LABCLIA [id number] [place] [address] [place] Monocytes (Bld) [#/Vol] 1.29 10*3/uL High <0.87 [facility] Comment on above: Order Comment: Speci men Type: BLOOD SPECIMENOrdering Facility: [facility] Address: [address] [place] [address] Performed By: #### 5 7021-8 ####[facility] LABCLIA [id number] [place] [address] [place] Monocytes/100 WBC (Bld) 8.9 % Normal [facility] Comment on above: Order Comment: Speci men Type: BLOOD SPECIMENOrdering Facility: [facility] Address: [address] [place] [address] Performed By: #### 5 7021-8 ####[facility] LABCLIA [id number] [place] [address] [place] Neutrophils (Bld) [#/Vol] 8.29 10*3/uL High 1.45-7.50 [facility] Comment on above: Order Comment: Speci men Type: BLOOD SPECIMENOrdering Facility: [facility] Address: [address] [place] [address] Performed By: #### 5 7021-8 ####[facility] LABCLIA [id number] [place] [address] [place] Neutrophils/100 WBC (Bld) 57.4 % Normal [facility] Comment on above: Order Comment: Speci men Type: BLOOD SPECIMENOrdering Facility: [facility] Address: [address] [place] [address] Performed By: #### 5 7021-8 ####[facility] LABCLIA [id number] [place] [address] [place] Nucleated RBC (Bld) [#/Vol] 10*3/uL Normal <0.01 [facility] Comment on above: Order Comment: Speci men Type: BLOOD SPECIMENOrdering Facility: [facility] Address: [address] [place] [address] Performed By: #### 5 7021-8 ####[facility] LABCLIA [id number] [place] [address] [place] Nucleated RBC/100 WBC (Bld) [Ratio] 0.0 /100 WBC Normal [facility] Comment on above: Order Comment: Speci men Type: BLOOD SPECIMENOrdering Facility: [facility] Address: [address] [place] [address] Performed By: #### 5 7021-8 ####[facility] LABCLIA [id number] [place] [address] [place] Platelet mean volume (Bld) [Entitic vol] 10.4 fL Normal 9.0-12.7 [facility] Comment on above: Order Comment: Speci men Type: BLOOD SPECIMENOrdering Facility: [facility] Address: [address] [place] [address] Performed By: #### 5 7021-8 ####[facility] LABCLIA [id number] [place] [address] [place] Platelets (Bld) [#/Vol] 317 10*3/uL Normal 150-400 [facility] Comment on above: Order Comment: Speci men Type: BLOOD SPECIMENOrdering Facility: [facility] Address: [address] [place] [address] Performed By: #### 5 7021-8 ####[facility] LABCLIA [id number] [place] [address] [place] RBC (Bld) [#/Vol] 4.47 10*6/uL Normal 3.90-5.20 [facility] Comment on above: Order Comment: Speci men Type: BLOOD SPECIMENOrdering Facility: [facility] Address: [address] [place] [address] Performed By: #### 5 7021-8 ####[facility] LABCLIA [id number] [place] [id number] [place] WBC (Bld) [#/Vol] 14.44 10*3/uL High 3.70-11.00 [facility] Comment on above: Order Comment: Speci men Type: BLOOD SPECIMENOrdering Facility: [facility] Address: [address] [place] [address] Performed By: #### 5 7021-8 ####[facility] LABCLIA [id number] [place] [id number] [place] CNOVon 04-22-2024 [facility] SANDRA SCHMITZ ([id number]) 1945 F [place] Date Time Provider Department 04/22/24 2:00 PM [facility] During your visit today, we recorded the [...] on chronic systolic CHF (congestive heart failure) ([facility]) 05/03/2020 Aspiration pneumonia ([facility]) 05/30/2020 Chest pain 05/03/2020 Chest pressure 01/23/2013 Chronic diastolic congestive heart failure ([facility]) 02/14/2021 Clostridium difficile diarrhea 09/28/2020 Complete uterovaginal prolapse Cystocele, midline Essential hypertension 06/14/2020 Homozygous Factor V Leiden mutation ([facility]) 05/03/2020 Hypothyroidism IBS (irritable bowel syndrome) 01/23/2013 [...] intact b (more content not included)... Normal [facility] CRP SerPl-ncon 04-22-2024 CRP [Mass/Vol] 5.4 mg/dL High <0.9 [facility] Comment on above: Order Comment: Speci men Type: BLOOD SPECIMENOrdering Facility: [facility] Address: [address] [place], [place] [address] Performed By: #### 3 040-3, 1987-09 ####[facility] LABCLIA [id number] [address] [address] [place] Comprehensive metabolic 2000 panelon 04-22-2024 Albumin [Mass/Vol] 4.0 g/dL Normal 3.9-4.9 [facility] Comment on above: Order Comment: Speci men Type: BLOOD SPECIMENOrdering Facility: [facility] Address: [address] [place] [address] Performed By: #### 3 016-3, 3024-7, 305-0, 71507-2 ####[facility] LABCLIA [id number] [place] [address] [place] ALP [Catalytic activity/Vol] 76 U/L Normal 34-123 [facility] Comment on above: Order Comment: Speci men Type: BLOOD SPECIMENOrdering Facility: [facility] Address: [address] [place] [address] Performed By: #### 3 016-3, 302-7, 305-0, 95067-7 ####[facility] LABCLIA [id number] [place] [address] [place] ALT [Catalytic activity/Vol] 8 U/L Normal 7-38 [facility] Comment on above: Order Comment: Speci men Type: BLOOD SPECIMENOrdering Facility: [facility] Address: [address] [place] [address] Performed By: #### 3 016-3, 3024-7, 305-0, 71391-7 ####[facility] LABCLIA [id number] [place] [id number] [place] Anion gap [Moles/Vol] 11 mmol/L Normal 8-15 [facility] Comment on above: Order Comment: Speci men Type: BLOOD SPECIMENOrdering Facility: [facility] Address: [address] [place] [address] Performed By: #### 3 016-3, 3024-7, 305-0, 04571-4 ####[facility] LABCLIA [id number] [place] [address] [place] AST [Catalytic activity/Vol] 14 U/L Normal 13-35 [facility] Comment on above: Order Comment: Speci men Type: BLOOD SPECIMENOrdering Facility: [facility] Address: [address] [place] [address] Performed By: #### 3 016-3, 3024-7, 305-0, 20038-7 ####[facility] LABCLIA [id number] [place] [address] [place] Bilirubin [Mass/Vol] 0.8 mg/dL Normal 0.2-1.3 [facility] Comment on above: Order Comment: Speci men Type: BLOOD SPECIMENOrdering Facility: [facility] Address: [address] [place] [address] Performed By: #### 3 016-3, 3024-7, 3050-0, 81380-0 ####[facility] LABIA [id number] [place] [address] [place] Calcium [Mass/Vol] 9.4 mg/dL Normal 8.5-10.2 [facility] Comment on above: Order Comment: Speci men Type: BLOOD SPECIMENOrdering Facility: [facility] Address: [address] [place] [address] Performed By: #### 3 016-3, 3024-7, 305-0, 17708-3 ####[facility] LABIA [id number] [place] [address] [place] Chloride [Moles/Vol] 103 mmol/L Normal 98-107 [facility] Comment on above: Order Comment: Speci men Type: BLOOD SPECIMENOrdering Facility: [facility] Address: [address] [place] [address] Performed By: #### 3 016-3, 3024-7, 305-0, 50193-9 ####[facility] LABCLIA [id number] [place] [address] [place] CO2 [Moles/Vol] 27 mmol/L Normal 22-30 [facility] Comment on above: Order Comment: Speci men Type: BLOOD SPECIMENOrdering Facility: [facility] Address: [address] [place] [address] Performed By: #### 3 016-3, 3024-7, 305-0, 98841-9 ####[facility] LABIA [id number] [place] [address] [place] Creatinine [Mass/Vol] 0.97 mg/dL High 0.58-0.96 [facility] Comment on above: Order Comment: Speci men Type: BLOOD SPECIMENOrdering Facility: [facility] Address: [address] [place] [address] Performed By: #### 3 016-3, 3024-7, 305-0, 97410-0 ####[facility] [id number] [place] [address] [place] Creatinine and Glomerular filtration rate.predicted panel (S/P/Bld) 60 mL/min/1.73m??? Normal >=60 [facility] Comment on above: Order Comment: Speci men Type: BLOOD SPECIMENOrdering Facility: [facility] Address: [address] [place] [address] Result Comment: Aaron mated Glomerular Filtration Rate [...] Performed By: #### 3 016-3, 3024-7, 305-0, 39645-1 ####[facility] LABIA [id number] [place] [id number] [place] Glucose [Mass/Vol] 90 mg/dL Normal 74-99 [facility] Comment on above: Order Comment: Speci men Type: BLOOD SPECIMENOrdering Facility: [facility] Address: [address] [place] [address] Result Comment: The [place] Diabetes Association (ADA) provides guidance for cutoff [...] Standards of Medical Care in Diabetes 2016, [place] Diabetes Association. Diabetes Care. 2016.39(Suppl 1). Performed By: #### 3 016-3, 3024-7, 305-0, 30944-9 ####[facility] LABCLIA [id number] [place] [address] [place] Potassium [Moles/Vol] 4.1 mmol/L Normal 3.7-5.1 [facility] Comment on above: Order Comment: Lenard jesus Type: BLOOD SPECIMENOrdering Facility: [facility] Address: [address] [place] [address] Performed By: #### 3 016-3, 3024-7, 305-0, 69083-9 ####[facility] LABCLIA [id number] [place] [id number] [place] Protein [Mass/Vol] 7.4 g/dL Normal 6.3-8.0 [facility] Comment on above: Order Comment: Ernestinei men Type: BLOOD SPECIMENOrdering Facility: [facility] Address: [address] [place] [address] Performed By: #### 3 016-3, 3024-7, 305-0, 25415-7 ####[facility] LABCLIA [id number] [place] [address] [place] Sodium [Moles/Vol] 141 mmol/L Normal 136-144 [facility] Comment on above: Order Comment: Speci men Type: BLOOD SPECIMENOrdering Facility: [facility] Address: [address] [place] [address] Performed By: #### 3 016-3, 3024-7, 305-0, 65609-3 ####[facility] LABCLIA [id number] [place] [address] [place] Urea nitrogen [Mass/Vol] 19 mg/dL Normal 7-21 [facility] Comment on above: Order Comment: Speci men Type: BLOOD SPECIMENOrdering Facility: [facility] Address: [address] [place] [address] Performed By: #### 3 016-3, 3024-7, 305-0, 67504-3 ####[facility] LABCLIA [id number] [place] [address] [place] Lipase SerPl-cCncon 04-22-20 24 Lipase [Catalytic activity/Vol] 25 U/L Normal 16-61 [facility] Comment on above: Order Comment: Speci men Type: BLOOD SPECIMENOrdering Facility: [facility] Address: [address] [place] [address] Performed By: #### 3 040-3, 1987-09 ####[facility] LABCLIA [id number] [place] [id number] [place] T3Free SerPl-mCncon 04-22-20 24 Free T3 [Mass/Vol] 2.1 pg/mL Low 2.3-4.1 [facility] Comment on above: Order Comment: Speci men Type: BLOOD SPECIMENOrdering Facility: [facility] Address: [address] [place] [address] Performed By: #### 3 016-3, 3024-7, 305-0, 15877-3 ####[facility] LABCLIA [id number] [place] [id number] [place] T4 Free SerPl-mCncon 024 Free T4 [Mass/Vol] 1.6 ng/dL Normal 0.9-1.7 [facility] Comment on above: Order Comment: Speci men Type: BLOOD SPECIMENOrdering Facility: [facility] Address: [address] [place] [address] Performed By: #### 3 016-3, 3024-7, 3051-0, 85760-4 ####[facility] LABIA [id number] [place] [address] [place] TSH SerPl-aCncon 04-22-2024 TSH Qn 0.233 m[IU]/L Low 0.270-4.200 [facility] Comment on above: Order Comment: Speci men Type: BLOOD SPECIMENOrdering Facility: [facility] Address: [address] [place] [address] Performed By: #### 3 016-3, 3024-7, 3051-0, 42749-5 ####[facility] [id number] [place] [address] [place] UA DIP, URINE (POC)on 2023 BILIRUBIN UA (POCT) Negative Negative [facility] CLARITY UA (POCT) Clear [facility] COLOR UA (POCT) Yellow [facility] GLUCOSE UA (POCT) Negative Negative mg/dL [facility] Hemoglobin Ql (U) Negative Negative [facility] KETONE UA (POCT) Negative Negative mg/dL [facility] LEUKOCYTES UA (POCT) Negative Negative [facility] NITRITE UA (POCT) Negative Negative [facility] PH UA (POCT) 6.0 4.5 - 8.0 [facility] Protein Ql (U) Negative Negative mg/dL [facility] SPECIFIC GRAVITY UA (POCT) 1.015 1.005 - 1.030 [facility] UROBILINOGEN UA (POCT) 0.2 Jeanette l E.U./dL [facility] Location:[facility], [address], [place], [address] [facility] 12 Lead EKGon 03-27-2024 12 Lead EKG [facility] Cardiovascular Services [address] [place] [address] 12 Lead EKG 03/27/24 0108 MR#: [id number] Acct: [id number] Name: SANDRA SCHMITZ Rep #: [id number] : 1945 78 From: Yousuf Parker MD [...] ECG Confirmed by TEO BRYAN, MONICA ([id number]), technical editor SINCERE HINSON ([id number]) on 03/27/2024 1:51:10 PM Referred By: Confirmed By: MONICA PARKER MD 03/27/24 1351 Date Yousuf Parker MD CC: Dr. Mandeep Houser DO; Parker Nunez DO Signed Normal [facility] Abdomen/Pelvis W IV Cont ONL Yon 03-27-2024 Abdomen/Pelvis W IV Cont ONLY [facility] Imaging Services [address] [place] [address] Abdomen/Pelvis W IV Cont ONLY MR#: [id number] Acct: [id number] Name: SANDRA SCHMITZ Rep #: [id number] : 1945 F 78 From: Lacy Virk PCP: Dr. Mandeep Houser DO Status: REG ER Study: Abdomen/Pelvis W IV Cont ONLY Date of Exam: Exam# [id number] Ordering Dr: Parker Nunez DO [id number] EXAM: CT Abdomen And Pelvis W/ Contrast [...] Dr. Mandeep Houser DO; Parker Nunez DO Tricot Knitter: Signed Normal [facility] BNP,B-Type NATRIURETIC PEPTI Lizeth 03-27-2024 Natriuretic peptide B (Bld) [Mass/Vol] 268.9 pg/mL High 0-100 [facility] Comment on above: Performed By: #### L 501.5200, L100.0100, L500.3400, L500.2500, L300.8000, L503.6620, L501.2450 #### [facility] Laboratory [address] [place], [address] Basic Metabolic Profile (BMP )on 03-27-2024 BUN/CRE 30.8 RATIO High 10-20 [facility] Comment on above: Performed By: #### L 501.5200, L100.0100, L500.3400, L500.2500, L300.8000, L503.6620, L501.2450 #### [facility] [address] [place], [address] CA,Total 9.1 mg/dL Normal 8.5-10.1 [facility] Comment on above: Performed By: #### L 501.5200, L100.0100, L500.3400, L500.2500, L300.8000, L503.6620, L501.2450 #### [facility] [address] [place], [address] Chloride [Moles/Vol] 105 mmol/L Normal 98-107 [facility] Comment on above: Performed By: #### L 501.5200, L100.0100, L500.3400, L500.2500, L300.8000, L503.6620, L501.2450 #### [facility] [address] [place], [address] CO2 [Moles/Vol] 28.0 mmol/L Normal 21.0-32.0 [facility] Comment on above: Performed By: #### L 501.5200, L100.0100, L500.3400, L500.2500, L300.8000, L503.6620, L501.2450 #### [facility] [address] [place], [address] Creatinine [Mass/Vol] 1.07 mg/dL High 0.55-1.02 [facility] Comment on above: Result Comment: The validity of the calculated GFR GFRAA in patients over 70 years has not been determined. Clinical correlation is essential. Performed By: #### L 501.5200, L100.0100, L500.3400, L500.2500, L300.8000, L503.6620, L501.2450 #### [facility] [address] [place], [address] ECRCL 46.99 ml/min Normal [facility] Comment on above: Performed By: #### L 501.5200, L100.0100, L500.3400, L500.2500, L300.8000, L503.6620, L501.2450 #### [facility] [address] [place], [address] EST GFR - AA 64 mL/min Normal >60 [facility] Comment on above: Result Comment: Afri can Danish GFR Calc Performed By: #### L 501.5200, L100.0100, L500.3400, L500.2500, L300.8000, L503.6620, L501.2450 #### [facility] [address] [place], [address] GAP 6 Normal 5-15 [facility] Comment on above: Performed By: #### L 501.5200, L100.0100, L500.3400, L500.2500, L300.8000, L503.6620, L501.2450 #### [facility] [address] [place], [address] GFR/1.73 sq M.predicted among non-blacks MDRD (S/P/Bld) [Vol rate/Area] 53 mL/min/{1.73_m2} Low >60 [facility] Comment on above: Result Comment: Non- GFR Calc Performed By: #### L 501.5200, L100.0100, L500.3400, L500.2500, L300.8000, L503.6620, L501.2450 #### [facility] [address] [place], [address] Glucose [Mass/Vol] 103 mg/dL Normal 74-106 [facility] Comment on above: Result Comment: Fast ing Glucose result from 100 to 125 mg/dL suggests IMPAIRED HOMEOSTASIS per A.D.A. criteria. Performed By: #### L 501.5200, L100.0100, L500.3400, L500.2500, L300.8000, L503.6620, L501.2450 #### [facility] [address] [place], [address] Potassium [Moles/Vol] 3.8 mmol/L Normal 3.5-5.1 [facility] Comment on above: Performed By: #### L 501.5200, L100.0100, L500.3400, L500.2500, L300.8000, L503.6620, L501.2450 #### [facility] [address] [place], [address] Sodium [Moles/Vol] 139 mmol/L Normal 136-145 [facility] Comment on above: Performed By: #### L 501.5200, L100.0100, L500.3400, L500.2500, L300.8000, L503.6620, L501.2450 #### [facility] [address] [place], [address] Urea nitrogen [Mass/Vol] 33 mg/dL High 7-18 [facility] Comment on above: Performed By: #### L 501.5200, L100.0100, L500.3400, L500.2500, L300.8000, L503.6620, L501.2450 #### [facility] [address] [place], [address] CBC W/Diff, Automatedon 03-14 Absolute Lymph 3.11 X10 3/uL Normal 0.83-4.51 [facility] Comment on above: Performed By: #### L 501.5200, L100.0100, L500.3400, L500.2500, L300.8000, L503.6620, L501.2450 #### [facility] [address] [place], [address] Absolute Neut 8.8 X10 3/uL High 2.0-7.7 [facility] Comment on above: Performed By: #### L 501.5200, L100.0100, L500.3400, L500.2500, L300.8000, L503.6620, L501.2450 #### [facility] [address] [place], [address] Basophils/100 WBC (Bld) 0.9 % Normal 0-1 [facility] Comment on above: Performed By: #### L 501.5200, L100.0100, L500.3400, L500.2500, L300.8000, L503.6620, L501.2450 #### [facility] [address] [place], [address] Eosinophils/100 WBC (Bld) 2.3 % Normal 0-5 [facility] Comment on above: Performed By: #### L 501.5200, L100.0100, L500.3400, L500.2500, L300.8000, L503.6620, L501.2450 #### [facility] [address] [place], [address] Erythrocyte distribution width (RBC) [Ratio] 14.0 % Normal 11.6-14.6 [facility] Comment on above: Performed By: #### L 501.5200, L100.0100, L500.3400, L500.2500, L300.8000, L503.6620, L501.2450 #### [facility] [address] [place], [address] Hematocrit (Bld) [Volume fraction] 43.6 % Normal 37-47 [facility] Comment on above: Performed By: #### L 501.5200, L100.0100, L500.3400, L500.2500, L300.8000, L503.6620, L501.2450 #### [facility] [address] [place], [address] Hemoglobin (Bld) [Mass/Vol] 13.7 g/dL Normal 12.0-15.0 [facility] Comment on above: Performed By: #### L 501.5200, L100.0100, L500.3400, L500.2500, L300.8000, L503.6620, L501.2450 #### [facility] [address] [place], [address] IG% 1.100 High 0.0-0.9 [facility] Comment on above: Result Comment: IG% - Immature Granulocytes (promyelocytes, myelocytes and metamyelocytes) > 1% indicates that a LEFT SHIFT is Present. Performed By: #### L 501.5200, L100.0100, L500.3400, L500.2500, L300.8000, L503.6620, L501.2450 #### [facility] [address] [place], [address] Lymphocytes/100 WBC (Bld) 24.2 % Normal 19-41 [facility] Comment on above: Performed By: #### L 501.5200, L100.0100, L500.3400, L500.2500, L300.8000, L503.6620, L501.2450 #### [facility] [address] [place], [address] MCH (RBC) [Entitic mass] 28.9 pg Normal 27.0-32.0 [facility] Comment on above: Performed By: #### L 501.5200, L100.0100, L500.3400, L500.2500, L300.8000, L503.6620, L501.2450 #### [facility] [address] [place], [address] MCHC (RBC) [Mass/Vol] 31.4 g/dL Low 32-36 [facility] Comment on above: Performed By: #### L 501.5200, L100.0100, L500.3400, L500.2500, L300.8000, L503.6620, L501.2450 #### [facility] [address] [place], [address] MCV (RBC) [Entitic vol] 92.0 fL Normal 81-99 [facility] Comment on above: Performed By: #### L 501.5200, L100.0100, L500.3400, L500.2500, L300.8000, L503.6620, L501.2450 #### [facility] [address] [place], [address] Monocytes/100 WBC (Bld) 2.7 % Normal 0-10 [facility] Comment on above: Performed By: #### L 501.5200, L100.0100, L500.3400, L500.2500, L300.8000, L503.6620, L501.2450 #### [facility] [address] [place], [address] Neutrophils/100 WBC (Bld) 68.8 % Normal 47-70 [facility] Comment on above: Performed By: #### L 501.5200, L100.0100, L500.3400, L500.2500, L300.8000, L503.6620, L501.2450 #### [facility] [address] [place], [address] Nucleated RBC (Bld) [#/Vol] 0 10*3/uL Normal 0-5 [facility] Comment on above: Performed By: #### L 501.5200, L100.0100, L500.3400, L500.2500, L300.8000, L503.6620, L501.2450 #### [facility] [address] [place], [address] Platelet mean volume (Bld) [Entitic vol] 10.5 fL Normal 6.2-12.0 [facility] Comment on above: Performed By: #### L 501.5200, L100.0100, L500.3400, L500.2500, L300.8000, L503.6620, L501.2450 #### [facility] [address] [place], [address] Platelets (Bld) [#/Vol] 333 10*3/uL Normal 150-450 [facility] Comment on above: Performed By: #### L 501.5200, L100.0100, L500.3400, L500.2500, L300.8000, L503.6620, L501.2450 #### [facility] [address] [place], [address] RBC (Bld) [#/Vol] 4.74 10*6/uL Normal 4.2-5.4 [facility] Comment on above: Performed By: #### L 501.5200, L100.0100, L500.3400, L500.2500, L300.8000, L503.6620, L501.2450 #### [facility] [address] [place], [address] RDW SD 47.4 fl High 35.1-43.9 [facility] Comment on above: Performed By: #### L 501.5200, L100.0100, L500.3400, L500.2500, L300.8000, L503.6620, L501.2450 #### [facility] [address] [place], [address] WBC (Bld) [#/Vol] 12.8 10*3/uL High 4.4-11.0 [facility] Comment on above: Performed By: #### L 501.5200, L100.0100, L500.3400, L500.2500, L300.8000, L503.6620, L501.2450 #### [facility] [address] [place], [address] Chest PA and Lateralon 03-27 Chest PA and Lateral [facility] Imaging Services [address] [place] [address] Chest PA and Lateral MR#: [id number] Acct: [id number] Name: SANDRA SCHMITZ Rep #: [id number] : 1945 F 78 From: Lacy Virk PCP: Dr. Mandeep Houser DO Status: [facility] Study: Chest PA and Lateral Date of Exam: 03/27/24 Exam# [id number] Ordering Dr: Parker Nunez DO [id number] INDICATION: dyspnea EXAMINATION/TECHNIQUE: X-RAY - XR Chest [...] Dr. 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 RESULTS READ BACK BY SAME. Performed By: #### L 501.5200, L100.0100, L500.3400, L500.2500, L300.8000, L503.6620, L501.2450 #### [facility] [address] [place], [address] Emergency Department Summary on 03-27-2024 Emergency Department Summary [facility] Medical Records Department [address] [place] [address] Emergency Department Summary 03/27/24 MR#: [id number] Acct: [id number] Name: SANDRA SCHMITZ Rep #: [id number] : 1945 78 From: Parker Nunez DO [...] to bring her in for evaluation [facility] Medical History (Updated 03/27/24 @ 06:55 by [...] 18 Res (more content not included)... Normal [facility] Lipaseon 03-27-2024 Lipase [Catalytic activity/Vol] 51 U/L Normal 13-75 [facility] Comment on above: Result Comment: Alva wiggins note: LIPASE revised reference range effective 22. New Lipase methodology. Expected to produce lower values than the previous assay method. NEW Reference Range: 13 - 75 U/L Performed By: #### L 501.5200, L100.0100, L500.3400, L500.2500, L300.8000, L503.6620, L501.2450 #### [facility] [address] [place], [address] Liver Profileon 03-27-2024 Albumin [Mass/Vol] 3.7 g/dL Normal 3.2-5.0 [facility] Comment on above: Performed By: #### L 501.5200, L100.0100, L500.3400, L500.2500, L300.8000, L503.6620, L501.2450 #### [facility] [address] [place], [address] ALK P 78 U/L Normal 45-117 [facility] Comment on above: Performed By: #### L 501.5200, L100.0100, L500.3400, L500.2500, L300.8000, L503.6620, L501.2450 #### [facility] [address] [place], [address] ALT [Catalytic activity/Vol] 16 U/L Normal 13-56 [facility] Comment on above: Performed By: #### L 501.5200, L100.0100, L500.3400, L500.2500, L300.8000, L503.6620, L501.2450 #### [facility] [address] [place], [address] AST [Catalytic activity/Vol] 18 U/L Normal 15-37 [facility] Comment on above: Performed By: #### L 501.5200, L100.0100, L500.3400, L500.2500, L300.8000, L503.6620, L501.2450 #### [facility] [address] [place], [address] Bilirubin [Mass/Vol] 0.40 mg/dL Normal 0.20-1.00 [facility] Comment on above: Result Comment: For patients on eltrombopag therapy, use of Dimension [place] TBIL is not recommended. Performed By: #### L 501.5200, L100.0100, L500.3400, L500.2500, L300.8000, L503.6620, L501.2450 #### [facility] [address] [place], [address] Bilirubin.direct [Mass/Vol] 0.13 mg/dL Normal 0.00-0.30 [facility] Comment on above: Performed By: #### L 501.5200, L100.0100, L500.3400, L500.2500, L300.8000, L503.6620, L501.2450 #### [facility] [address] [place], [address] Globulin (S) [Mass/Vol] 4.5 g/dL High 2.2-4.2 [facility] Comment on above: Performed By: #### L 501.5200, L100.0100, L500.3400, L500.2500, L300.8000, L503.6620, L501.2450 #### [facility] [address] [place], [address] T PROT 8.2 g/dL Normal 6.4-8.2 [facility] Comment on above: Performed By: #### L 501.5200, L100.0100, L500.3400, L500.2500, L300.8000, L503.6620, L501.2450 #### [facility] [address] [place], [address] M100.678on 03-27-2024 M100.678 Pending SARS-CoV-2 (COVID 19) Negative INFLUENZA A Negative INFLUENZA B Negative RSV PCR Negative Normal [facility] Comment on above: Performed By: #### M 100.678 ####[facility] [address] [place], [address] Magnesiumon 03-27-2024 Magnesium [Mass/Vol] 2.1 mg/dL Normal 1.6-2.6 [facility] Comment on above: Performed By: #### L 501.5200, L100.0100, L500.3400, L500.2500, L300.8000, L503.6620, L501.2450 #### [facility] [address] [place], [address] Urinalysis, Completeon 03-27 EPI,SQUAMOUS 0-5 SEEN Normal 5-10 [facility] Comment on above: Order Comment: CLEAN CATCH Performed By: #### L 400.0001 ####[facility] [address] [place], [address] BACTERIA 0 SEEN Normal None Seen [facility] Comment on above: Order Comment: CLEAN CATCH Performed By: #### L 400.0001 ####[facility] [address] [place], [address] Mucus Ql (Urine sed) 0 SEEN Normal [facility] Comment on above: Order Comment: CLEAN CATCH Performed By: #### L 400.0001 ####[facility] [address] [place], [address] RBC 0 SEEN Normal 0-5 [facility] Comment on above: Order Comment: CLEAN CATCH Performed By: #### L 400.0001 ####[facility] [address] [place], [address] WBC 0 SEEN Normal 0-5 [facility] Comment on above: Order Comment: CLEAN CATCH Performed By: #### L 400.0001 ####[facility] [address] [place], [address] [facility] ----- SANDRA SCHMITZ ([id number]) 1945 [place]* Date Time Provider [...] right [M19.071] 08/02/2022 Coronary artery disease involving paimiut lopez*08/02/2022 Vitamin D deficiency [E55.9] (more content not included)... Normal [facility] Jayna 03-05-2024 TIMN Telephone ([facility]) ----- SANDRA SCHMITZ ([id number]) 1945 Pra[address] Farhan Shonna* Date Time Provider [...] right [M19.071] 08/02/2022 Coronary artery disease involving paimiut lopez*08/02/2022 Vitamin D deficiency [E55.9] 08/02/2022 Somatic [...] (left bundle (more content not included)... Normal [facility] CNOVon 02-12-2024 CNOV Office Visit (FAMPWS ) ----- SANDRA SCHMITZ ([id number]) 1945 [place]* Date Time Provider Department 02/12/24 2:00 PM MANDEEP HOUS[facility] During your visit today, we recorded the [...] on chronic systolic CHF (congestive heart failure) ([facility]) 05/03/2020 Aspiration pneumonia ([facility]) 05/30/2020 Chest pain 05/03/2020 Chest pressure 01/23/2013 Chronic diastolic congestive heart failure ([facility]) 02/14/2021 Clostridium difficile diarrhea 09/28/2020 Complete uterovaginal prolapse Cystocele, midline Essential hypertension 06/14/2020 Homozygous Factor V Leiden mutation ([facility]) 05/03/2020 Hypothyroidism IBS (irritable bowel syndrome) 01/23/2013 [...] T3-10ERrSBl L1-2NRrS (more content not included)... Normal [facility] T3Free SerPl-mCncon 02-12-20 24 Free T3 [Mass/Vol] 2.1 pg/mL Low 2.3-4.1 [facility] Comment on above: Order Comment: Speci men Type: BLOOD SPECIMENOrdering Facility: [facility] Address: [address] [place] [address] Performed By: #### 3 051-0, 3024-7, 3016-3 ####[facility] LABCLIA [id number] [facility] [place] [address] [place] T4 Free SerPl-mCncon 024 Free T4 [Mass/Vol] 1.6 ng/dL Normal 0.9-1.7 [facility] Comment on above: Order Comment: Speci men Type: BLOOD SPECIMENOrdering Facility: [facility] Address: [address] [place] [address] Performed By: #### 3 051-0, 3024-7, 6-3 ####[facility] LABCLIA [id number] [place] [id number] [place] TSH SerPl-aCncon 02-12-2024 TSH Qn 0.695 m[IU]/L Normal 0.270-4.200 [facility] Comment on above: Order Comment: Speci men Type: BLOOD SPECIMENOrdering Facility: [facility] Address: [address] [place] [address] Performed By: #### 3 051-0, 3024-7, 6-3 ####[facility] LABCLIA [id number] [address] [place] CNOVon 02-07-2024 CNOV Office Visit (CARDMM ) ----- SANDRA SCHMITZ ([id number]) 1945 [place] [place]* Date Time Provider Department 02/07/24 2:20 PM ANGEL CASTRO During your visit today, we recorded the following information about you: Pulse Blood pressure Weight 83/minute 132/78 89.2 kg Angel Castro DO 02/07/2024 2:40 PM Signed [facility] [place] Eduardo Department of Cardiovascular Medicine SECTION OF REGIONAL C[facility]IOLOGY/[facility] OUTPATIENT VISIT DATE February 07, 2024 OUTPATIENT VISIT TYPE ESTABLISHED PATIENT Name: Sandra Ricardo Nadir : 1945 Date: February 07, 2024 PRIMARY CARE PHYSICIAN: Mandeep Houser [address] [place] [address] REFERRING PHYSICIAN: No referring provider defined for this encounter. 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 - [facility] 10/2021: mod LAD, D1 prox 40%, [...] breath or increasing abdominal girth. - s/p RN RENAL-D 07/16/23 at [facility] - Follows with advanced heart failure, - Follows with EP, Dr. Wellington and continue follow-up in the device clinic Left bundle branch block - s/p RN RENAL-D 07/16/23 at [facility] - Follows with EP, Dr. Wellington Nonobstructive coronary artery disease - [facility] 10/2021: mod LAD, D1 prox 40%, [...] an ejection fraction of 23% status post RN RENAL-D in July 2023, hypertension and factor V [...] on chronic systolic CHF (congestive heart failure) ([facility]) 05/03/2020 Aspiration pneumonia ([facility]) 05/30/2020 Chest pain 05/03/2020 Chest pressure 01/23/2013 [...] status: Former (more content not included)... Normal [facility] ECG COMPLETEon 02-04-2024 Atrial Rate 70 BPM [facility] Calculated P [place] 21 degrees [facility] Calculated R [place] -61 degrees [facility] Calculated T [place] 63 degrees [facility] P-R Interval 132 ms [facility] QRS Duration 116 ms [facility] QT Interval 462 ms [facility] QTC Calculation (Bazett) 498 ms [facility] Ventricular Rate 70 BPM [facility] NORMAL SINUS RHYTHM LEFT AXIS DEVIATION INFERIOR MYOCARDIAL INFARCTION , AGE UNDETERMINED ANTEROLATERAL INFARCTION , AGE UNDETERMINED ABNORMAL ECG Confirmed by AUGUSTINE WAN MD ([id number]) on 02/04/2024 10:18:22 AM [facility] NAME : SANDRA SCHMTIZ PID : [id number] : 1945 Gender : Female Race : [...] Acquired by : , [facility] NT PRO BNPon 01-30-2024 Natriuretic peptide.B prohormone N-Terminal [Mass/Vol] 2145 pg/mL High NINF - 450 pg/mL [facility] Natriuretic peptide.B prohor briana N-Terminal [Mass/Vol]on 01-30-2024 Interpretation and review of laboratory results Abnormal [facility] CNOVon 01-29-2024 CNOV Office Visit (FAMPWS ) ----- SANDRA SCHMITZ ([id number]) 1945 [place] [place]* Date Time Provider Department [...] on chronic systolic CHF (congestive heart failure) ([facility]) 05/03/2020 Aspiration pneumonia ([facility]) 05/30/2020 Chest pain 05/03/2020 Chest pressure 01/23/2013 Chronic diastolic congestive heart failure ([facility]) 02/14/2021 Clostridium difficile diarrhea 09/28/2020 Complete uterovaginal prolapse Cystocele, midline Essential hypertension 06/14/2020 Homozygous Factor V Leiden mutation ([facility]) 05/03/2020 Hypothyroidism IBS (irritable bowel syndrome) 01/23/2013 [...] edema. No (more content not included)... Normal [facility] NT-proBNP Becky-Daniel 01-28 Natriuretic peptide.B prohormone N-Terminal [Mass/Vol] 2145 pg/mL High <450 [facility] Comment on above: Order Comment: Speci men Type: BLOOD SPECIMENOrdering Facility: [facility] Address: [address] [place] [address] Performed By: #### 3 3762-6 ####[facility] LABCLIA [id number] [address] CNOVon 01-15-2024 CNOV Office Visit (CACHFV ) ----- SANDRA SCHMITZ ([id number]) 1945 F Farhan [place]* Date Time Provider [...] and weight daily. Please notify us via Sysomoshart if your Systolic BP (top number) < [...] heart kidney injury risk Please send a Titansan message or call with any questions or concerns: Outpatient Number: [phone] Thank you, Pili Wells MD Advanced Heart Failure and Transplant Milieu Therapist [place] [phone] Pili Wells MD 03/07/2024 7:04 PM Signed [facility] [place] [facility] SECTION OF HEART FAILURE and CARDIAC TRANSPLANT MEDICINE [facility] OUTPATIENT VISIT DATE January 15, 2024 OUTPATIENT VISIT TYPE Established PRIMARY CARE PHYSICIAN: Mandeep Houser [address] [place] [phone] CHIEF COMPLAINT: Follow Up HISTORY OF PRESENT ILLNESS: Sandra Schmitz is a 78 year old female with a medical history that includes non-ischemic CM, HTN, Hypothyroidism, LBBB s/p RN RENAL-D who is referred to me for heart failure management. Sandra Schmitz was initially diagnosed with non-ischemic CM ~ 4 yrs ago and was doing well on losartan and metoprolol. She had progressive sxs of dyspnea on exertion, therefore she was started on entresto and farxiga and her sxs persisted and she was admitted locally in [place] and then transferred to for RN RENAL consideration. Interval History: Sandra Schmitz was last [...] LVEF 40%, LVEdd 4.8cm. LBBB: chronic. S/p RN RENAL 07/2023 Non-obstructive CAD: stable, ischemic testing recently [...] on chronic systolic CHF (congestive heart failure) ([facility]) 05/30/2020: Aspiration pneumonia ([facility]) 05/03/2020: Chest pain 01/23/2013: Chest pressure 02/14/2021: Chronic diastolic congestive heart failure ([facility]) 09/28/2020: Clostridium difficile diarrhea No date: Complete uterovaginal prolapse No date: Cystocele, midline 06/14/2020: Essential hypertension 05/03/2020: Homozygous Factor V Leiden mutation ([facility]) No date: Hypothyroidism 01/23/2013: IBS (irritable bowel syn (more content not included)... Normal [facility] QWA90sy 01-15-2024 ECG01 Ventricular Rate : 7 0 BPM Atrial Rate : 70 BPM P-R Interval : 132 ms QRS Duration : 116 ms Q-T Interval : 462 ms QTC Calculation(Bazett) : 498 ms Calculated P [place] : 21 degrees Calculated R [place] : -61 degrees Calculated T [place] : 63 degrees NORMAL SINUS RHYTHM LEFT AXIS DEVIATION INFERIOR MYOCARDIAL INFARCTION , AGE UNDETERMINED ANTEROLATERAL INFARCTION , AGE UNDETERMINED ABNORMAL ECG Confirmed by AUGUSTINE WAN MD ([id number]) on 02/04/2024 10:18:22 AM NAME : SANDRA SCHMITZ PID : [id number] : 1945 Gender : Female Race : [...] PILI WELLS Acquired by : Terrie COPE [facility] CNOVon 01-04-2024 CNOV Office Visit (FAMPWS ) ----- SANDRA SCHMITZ ([id number]) 1945 [place]* Date Time Provider Department 01/04/24 4:20 [facility] today, we recorded [...] on chronic systolic CHF (congestive heart failure) ([facility]) 05/30/2020: Aspiration pneumonia ([facility]) 05/03/2020: Chest pain 01/23/2013: Chest pressure 02/14/2021: Chronic diastolic congestive heart failure ([facility]) 09/28/2020: Clostridium difficile diarrhea No date: Complete uterovaginal prolapse No date: Cystocele, midline 06/14/2020: Essential hypertension 05/03/2020: Homozygous Factor V Leiden mutation ([facility]) No date: Hypothyroidism 01/23/2013: IBS (irritable bowel [...] no c (more content not included)... Normal [facility] CBC W Auto Differential pane l (Bld)on 12-12-2023 Basophils (Bld) [#/Vol] 0.11 10*3/uL High <0.11 [facility] Comment on above: Order Comment: Speci men Type: BLOOD SPECIMENOrdering Facility: [facility] [place] Address: [address] [place] [address] Performed By: #### 5 7021-8, 4536-7 ####[facility] LABCLIA [id number] [facility] [place] [address] [place] Basophils/100 WBC (Bld) 1.2 % Normal [facility] Comment on above: Order Comment: Speci men Type: BLOOD SPECIMENOrdering Facility: [facility] [place] Address: [address] [place] [address] Performed By: #### 5 7021-8, 7 ####[facility] LABCLIA [id number] [place] [address] [place] Differential cell count method Nom (Bld) Auto Normal [facility] Comment on above: Order Comment: Speci men Type: BLOOD SPECIMENOrdering Facility: [facility] [place] Address: [address] [place] [address] Performed By: #### 5 7021-8, 7 ####[facility] LABCLIA [id number] [place] [address] [place] Eosinophils (Bld) [#/Vol] 0.20 10*3/uL Normal <0.46 [facility] Comment on above: Order Comment: Speci men Type: BLOOD SPECIMENOrdering Facility: [facility] [place] Address: [address] [place] [address] Performed By: #### 5 7021-8, 7 ####[facility] LABCLIA [id number] [place] [address] [place] Eosinophils/100 WBC (Bld) 2.1 % Normal [facility] Comment on above: Order Comment: Speci men Type: BLOOD SPECIMENOrdering Facility: [facility] [place] Address: [address] [place] [address] Performed By: #### 5 7021-8, 7 ####[facility] LABCLIA [id number] [address] [address] [place] Erythrocyte distribution width (RBC) [Ratio] 14.4 % Normal 11.5-15.0 [facility] Comment on above: Order Comment: Speci men Type: BLOOD SPECIMENOrdering Facility: [facility] [place] Address: [address] [place] [address] Performed By: #### 5 7021-8, 7 ####[facility] LABIA [id number] [place] [address] [place] Hematocrit (Bld) [Volume fraction] 40.5 % Normal 36.0-46.0 [facility] Comment on above: Order Comment: Speci men Type: BLOOD SPECIMENOrdering Facility: [facility] [place] Address: [address] [place] [address] Performed By: #### 5 7021-8, 7 ####[facility] LABIA [id number] [place] [id number] [place] Hemoglobin (Bld) [Mass/Vol] 12.6 g/dL Normal 11.5-15.5 [facility] Comment on above: Order Comment: Speci men Type: BLOOD SPECIMENOrdering Facility: [facility] [place] Address: [address] [place] [address] Performed By: #### 5 7021-8, 7 ####[facility] LABIA [id number] [address] [address] [place] Immature granulocytes (Bld) [#/Vol] 0.05 10*3/uL Normal <0.10 [facility] Comment on above: Order Comment: Speci men Type: BLOOD SPECIMENOrdering Facility: [facility] [place] Address: [address] [place] [address] Performed By: #### 5 7021-8, 4536-7 ####[facility] LABCLIA [id number] [place] [address] [place] Immature granulocytes/100 WBC (Bld) 0.5 % Normal [facility] Comment on above: Order Comment: Speci men Type: BLOOD SPECIMENOrdering Facility: [facility] [place] Address: [address] [place] [address] Performed By: #### 5 7021-8, 7 ####[facility] LABCLIA [id number] [place] [address] [place] Lymphocytes (Bld) [#/Vol] 3.55 10*3/uL Normal 1.00-4.00 [facility] Comment on above: Order Comment: Speci men Type: BLOOD SPECIMENOrdering Facility: [facility] [place] Address: [address] [place] [address] Performed By: #### 5 7021-8, 7 ####[facility] LABCLIA [id number] [place] [address] [place] Lymphocytes/100 WBC (Bld) 37.6 % Normal [facility] Comment on above: Order Comment: Speci men Type: BLOOD SPECIMENOrdering Facility: [facility] [place] Address: [address] [place] [address] Performed By: #### 5 7021-8, 7 ####[facility] LABCLIA [id number] [place] [address] [place] MCH (RBC) [Entitic mass] 28.8 pg Normal 26.0-34.0 [facility] Comment on above: Order Comment: Speci men Type: BLOOD SPECIMENOrdering Facility: [facility] [place] Address: [address] [place] [address] Performed By: #### 5 7021-8, 4536-7 ####[facility] LABCLIA [id number] [place] [id number] [place] MCHC (RBC) [Mass/Vol] 31.1 g/dL Normal 30.5-36.0 [facility] Comment on above: Order Comment: Speci men Type: BLOOD SPECIMENOrdering Facility: [facility] Address: [address] [place] [address] Performed By: #### 5 7021-8, 7-7 ####[facility] LABCLIA [id number] [place] [address] [place] MCV (RBC) [Entitic vol] 92.5 fL Normal 80.0-100.0 [facility] Comment on above: Order Comment: Speci men Type: BLOOD SPECIMENOrdering Facility: [facility] Address: [address] [place] [address] Performed By: #### 5 7021-8, 4537-7 ####[facility] LABCLIA [id number] [place] [address] [place] Monocytes (Bld) [#/Vol] 1.02 10*3/uL High <0.87 [facility] Comment on above: Order Comment: Speci men Type: BLOOD SPECIMENOrdering Facility: [facility] Address: [address] [place] [address] Performed By: #### 5 7021-8, 4536-7 ####[facility] LABCLIA [id number] [place] [address] [place] Monocytes/100 WBC (Bld) 10.8 % Normal [facility] Comment on above: Order Comment: Speci men Type: BLOOD SPECIMENOrdering Facility: [facility] [place] Address: [address] [place] [address] Performed By: #### 5 7021-8, 4537-7 ####[facility] LABCLIA [id number] [place] [id number] [place] Neutrophils (Bld) [#/Vol] 4.51 10*3/uL Normal 1.45-7.50 [facility] Comment on above: Order Comment: Speci men Type: BLOOD SPECIMENOrdering Facility: [facility] [place] Address: [address] [place] [address] Performed By: #### 5 7021-8, 4537-7 ####[facility] LABCLIA [id number] [place] [address] [place] Neutrophils/100 WBC (Bld) 47.8 % Normal [facility] Comment on above: Order Comment: Speci men Type: BLOOD SPECIMENOrdering Facility: [facility] [place] Address: [address] [place] [address] Performed By: #### 5 7021-8, 453-7 ####[facility] LABCLIA [id number] [place] [address] [place] Nucleated RBC (Bld) [#/Vol] 10*3/uL Normal <0.01 [facility] Comment on above: Order Comment: Speci men Type: BLOOD SPECIMENOrdering Facility: [facility] [place] Address: [address] [place] [address] Performed By: #### 5 7021-8, 4537-7 ####[facility] LABCLIA [id number] [place] [address] [place] Nucleated RBC/100 WBC (Bld) [Ratio] 0.0 /100 WBC Normal [facility] Comment on above: Order Comment: Speci men Type: BLOOD SPECIMENOrdering Facility: [facility] [place] Address: [address] [place] [address] Performed By: #### 5 7021-8, 4537-7 ####[facility] LABCLIA [id number] [place] [address] [place] Platelet mean volume (Bld) [Entitic vol] 10.5 fL Normal 9.0-12.7 [facility] Comment on above: Order Comment: Speci men Type: BLOOD SPECIMENOrdering Facility: [facility] [place] Address: [address] [place] [address] Performed By: #### 5 7021-8, 4537-7 ####[facility] LABCLIA [id number] [place] [address] [place] Platelets (Bld) [#/Vol] 328 10*3/uL Normal 150-400 [facility] Comment on above: Order Comment: Specjeffy jesus Type: BLOOD SPECIMENOrdering Facility: [facility] [place] Address: [address] [place] [address] Performed By: #### 5 7021-8, 4537-7 ####[facility] LABCLIA [id number] [place] [address] [place] RBC (Bld) [#/Vol] 4.38 10*6/uL Normal 3.90-5.20 [facility] Comment on above: Order Comment: Lenard jesus Type: BLOOD SPECIMENOrdering Facility: [facility] [place] Address: [address] [place] [address] Performed By: #### 5 7021-8, 4537-7 ####[facility] LABIA [id number] [place] [address] [place] WBC (Bld) [#/Vol] 9.44 10*3/uL Normal 3.70-11.00 [facility] Comment on above: Order Comment: Lenard jesus Type: BLOOD SPECIMENOrdering Facility: [facility] Address: [address] [place] [address] Performed By: #### 5 7021-8, 4537-7 ####[facility] LABIA [id number] [place] [address] [place] CELIAC SCREENon 12-12-2023 GLIAD DEAMIDATED IGA QUAL Negative Normal Negative, Test not Indicated [facility] Comment on above: Order Comment: Lenard jesus Type: BLOOD SPECIMENOrdering Facility: [facility] Address: [address] [place] [address] Result Comment: This is used as an aid in diagnosis of celiac disease. Clinical correlation is required. The following results were obtained with an Inova QUANTA Lite Gliadin IgA BLAYNE Gliadin. Gliadin IgA values obtained with different manufacturers' assay methods may not be used interchangeably. The magnitude of the reported IgA levels cannot be correlated to an endpoint titer. Performed By: #### L [id number] ####[facility] LABCLIA [id number] [address] Gliadin peptide IgA Qn (S) 4 Units Normal <20 [facility] Comment on above: Order Comment: Speci men Type: BLOOD SPECIMENOrdering Facility: [facility] Address: [address] [place] [address] Performed By: #### L [id number] ####[facility] LABCLIA [id number] [address] OF [place] INTERPRETATION No serological evide nce of celiac disease, however, if celiac disease is clinically suspected and patient is not on gluten-free diet, histological diagnosis may be considered. HLA testing may help with risk assessment. Normal [facility] Comment on above: Order Comment: Lenard jesus Type: BLOOD SPECIMENOrdering Facility: [facility] Address: [address] [place] [address] Performed By: #### L [id number] ####[facility] LABCLIA [id number] [address] TRANSGLUTAMINASE IGA ABS INTERPRETATION Negative Normal Negative [facility] Comment on above: Order Comment: Lenard jesus Type: BLOOD SPECIMENOrdering Facility: [facility] Address: [address] [place] [address] Result Comment: The following results were obtained with Inova QUANTA Lite R h-tTG IgA BLAYNE.???R h-tTG IgA values obtained with different manufacturers' assay methods may not be used interchangeably. The magnitude of the reported IgA levels cannot be corelated to an endpoint???concentration. This is used as an aid in diagnosis of celiac disease. Clinical correlation is required. Performed By: #### L [id number] ####[facility] LABCLIA [id number] [place] [address] [place] tTG IgA Qn (S) <2 Normal <4 [facility] Comment on above: Order Comment: Speci men Type: BLOOD SPECIMENOrdering Facility: [facility] Address: [address] [place] [address] Performed By: #### L [id number] ####[facility] LABCLIA [id number] [address] [place] CNOVon 12-12-2023 CNOV Office Visit (FAMPWS ) ----- SANDRA SCHMITZ ([id number]) 1945 [place] [employer] Date Time Provider Department 12/12/23 3:40 PM [facility] today, we recorded [...] on chronic systolic CHF (congestive heart failure) ([facility]) 05/30/2020: Aspiration pneumonia ([facility]) 05/03/2020: Chest pain 01/23/2013: Chest pressure 02/14/2021: Chronic diastolic congestive heart failure ([facility]) 09/28/2020: Clostridium difficile diarrhea No date: Complete uterovaginal prolapse No date: Cystocele, midline 06/14/2020: Essential hypertension 05/03/2020: Homozygous Factor V Leiden mutation ([facility]) No date: Hypothyroidism 01/23/2013: IBS (irritable bowel [...] fullness ri (more content not included)... Normal [facility] CRP SerPl-ncon 12-12-2023 CRP [Mass/Vol] 1.2 mg/dL High <0.9 [facility] Comment on above: Order Comment: Speci men Type: BLOOD SPECIMENOrdering Facility: [facility] Address: [address] [place], [place] [id number] Performed By: #### 2 4322-12, 1987-09 ####[facility] LABCLIA [id number] [address] [address] [place] Comprehensive metabolic 2000 panelon 12-12-2023 Albumin [Mass/Vol] 4.0 g/dL Normal 3.9-4.9 [facility] Comment on above: Order Comment: Speci men Type: BLOOD SPECIMENOrdering Facility: [facility] Address: [address] [place] [address] Performed By: #### 2 4322-12, 1987-09 ####[facility] LABCLIA [id number] [place] [id number] [place] ALP [Catalytic activity/Vol] 68 U/L Normal 34-123 [facility] Comment on above: Order Comment: Speci men Type: BLOOD SPECIMENOrdering Facility: [facility] Address: [address] [place] [address] Performed By: #### 2 4322-12, 1987-09 ####[facility] LABCLIA [id number] [place] [id number] [place] ALT [Catalytic activity/Vol] 11 U/L Normal 7-38 [facility] Comment on above: Order Comment: Speci men Type: BLOOD SPECIMENOrdering Facility: [facility]antR[facility] riuzna Address: [address] [place] [address] Performed By: #### 2 4322-12, 1987-09 ####[facility] LABCLIA [id number] [address] [address] [place] Anion gap [Moles/Vol] 12 mmol/L Normal 8-15 [facility] Comment on above: Order Comment: Speci men Type: BLOOD SPECIMENOrdering Facility: [facility] Address: [address] [place] [address] Performed By: #### 2 4322-12, 1987-09 ####[facility] LABCLIA [id number] [place] [id number] [place] AST [Catalytic activity/Vol] 18 U/L Normal 13-35 [facility] Comment on above: Order Comment: Speci men Type: BLOOD SPECIMENOrdering Facility: [facility] ruzina Address: [address] [place] [address] Performed By: #### 2 4322-12, 1987-09 ####[facility] LABCLIA [id number] [place] [id number] [place] Bilirubin [Mass/Vol] 0.3 mg/dL Normal 0.2-1.3 [facility] Comment on above: Order Comment: Speci men Type: BLOOD SPECIMENOrdering Facility: [facility] ruizna Address: [address] [place] [address] Performed By: #### 2 4322-12, 1987-09 ####[facility] LABCLIA [id number] [place] [address] [place] Calcium [Mass/Vol] 9.4 mg/dL Normal 8.5-10.2 [facility] Comment on above: Order Comment: Speci men Type: BLOOD SPECIMENOrdering Facility: [facility] ru[facility]na Address: [address] [place] [address] Performed By: #### 2 4322-12, 1987-09 ####[facility] LABCLIA [id number] [place] [id number] [place] Chloride [Moles/Vol] 103 mmol/L Normal 98-107 [facility] Comment on above: Order Comment: Speci men Type: BLOOD SPECIMENOrdering Facility: [facility] Address: [address] [place] [address] Performed By: #### 2 4322-12, 1987-09 ####[facility] LABCLIA [id number] [place] [id number] [place] CO2 [Moles/Vol] 26 mmol/L Normal 22-30 [facility] Comment on above: Order Comment: Speci men Type: BLOOD SPECIMENOrdering Facility: [facility]antLetty ruiz Address: [address] [place] [address] Performed By: #### 2 4322-12, 1987-09 ####[facility] LABCLIA [id number] [address] [address] [place] Creatinine [Mass/Vol] 0.96 mg/dL Normal 0.58-0.96 [facility] Comment on above: Order Comment: Speci men Type: BLOOD SPECIMENOrdering Facility: [facility] ru[facility] Address: [address] [place] [address] Performed By: #### 2 4322-12, 1987-09 ####[facility] LABCLIA [id number] [place] [address] [place] Creatinine and Glomerular filtration rate.predicted panel (S/P/Bld) 61 mL/min/1.73m??? Normal >=60 [facility] Comment on above: Order Comment: Specjeffy jesus Type: BLOOD SPECIMENOrdering Facility: [facility] Address: [address] [place] [address] Result Comment: Aaron mated Glomerular Filtration Rate [...] GFR. Performed By: #### 2 4322-12, 1987-09 ####[facility] LABCLIA [id number] [address] [address] [place] Glucose [Mass/Vol] 82 mg/dL Normal 74-99 [facility] Comment on above: Order Comment: Speci edin Type: BLOOD SPECIMENOrdering Facility: [facility]Let[facility] ruiz Address: [address] [place] [address] Result Comment: The [place] Diabetes Association (ADA) provides guidance for cutoff [...] Standards of Medical Care in Diabetes 2016, [place] Diabetes Association. Diabetes Care. 2016.39(Suppl 1). Performed By: #### 2 43207-19, 1987-09 ####[facility] LABCLIA [id number] [place] [address] [place] Potassium [Moles/Vol] 4.0 mmol/L Normal 3.7-5.1 [facility] Comment on above: Order Comment: Lenard jesus Type: BLOOD SPECIMENOrdering Facility: [facility] Address: [address] [place] [address] Performed By: #### 2 4322-12, 1987-09 ####[facility] LABIA [id number] [place] [address] [place] Protein [Mass/Vol] 7.2 g/dL Normal 6.3-8.0 [facility] Comment on above: Order Comment: Lenard jesus Type: BLOOD SPECIMENOrdering Facility: [facility] Address: [address] [place] [address] Performed By: #### 2 4322-12, 1987-09 ####[facility] LABCLIA [id number] [place] [id number] [place] Sodium [Moles/Vol] 141 mmol/L Normal 136-144 [facility] Comment on above: Order Comment: Lenard jesus Type: BLOOD SPECIMENOrdering Facility: [facility] Address: [address] [place] [address] Performed By: #### 2 8, 1987-09 ####[facility] LABCLIA [id number] [place] [address] [place] Urea nitrogen [Mass/Vol] 22 mg/dL High 7-21 [facility] Comment on above: Order Comment: Speci edin Type: BLOOD SPECIMENOrdering Facility: [facility] Address: [address] [place] [address] Performed By: #### 2 4323-8, 1987-09 ####[facility] LABCLIA [id number] [place] [id number] [place] ESR Westergren method (Bld) [Velocity]on 12-12-2023 ESR (Bld) [Velocity] 32 mm/h High 0-20 [facility] Comment on above: Order Comment: Ernestinei edin Type: BLOOD SPECIMENOrdering Facility: [facility] Address: [address] [place] [address] Performed By: #### 5 7021-8, 4537-7 ####[facility] LABIA [id number] [address] [place] IgA SerPl-mCncon 12-12-2023 IgA [Mass/Vol] 177 mg/dL Normal 70-400 [facility] Comment on above: Order Comment: Lenard jesus Type: BLOOD SPECIMENOrdering Facility: [facility] Address: [address] [place] [address] Performed By: #### 2 458-8 ####[facility] LABCLIA [id number] [place] [id number] [place] Jayna 12-06-2023 TIMN Telephone (EDUARDO) ----- SANDRA SCHMITZ ([id number]) 1945 [place] [employer] Date Time Provider Department 12/06/23 PILI WELLS During your visit today, we recorded the following information about you: Pili Wells MD 12/06/2023 6:51 PM Signed Echo results reviewed. LVEF remains stable, mitral regurgitation is improved. At this time we will continue with medications. No changes Helen Ramachandran RN 12/10/2023 11:41 AM Signed Pili Wells MD Me, Please call patient with results. She doesn't [...] right [M19.071] 08/02/2022 Coronary artery disease involving paimiut lopez*08/02/2022 Vitamin D deficiency [E55.9] 08/02/2022 Somatic dysfunction of head region [M99.00] 08/10/2022 Chronic neck pain [M54.2, G89.29] 08/24/2022 Chronic bronchitis (HCC) [J42] 09/11/2022 SVT (supraventricular tachycardia) (HCC) (more content not included)... Normal [facility] ECHOon 12-05-2023 CONCLUSIONS: - Exam indication: [...] * * * Final * * * [facility] Echocardiography Report: Transthoracic Echo [facility] Date of service: 12/05/2023 1:16:13 PM Ordering physician: PILI WELLS Indication: Heart failure Technologist: Maritza Ahn [facility] Interpreting physician: Jim Gonzalez DO PATIENT: Name: MRS. SANDRA SCHMITZ : 1945 Age: 78 years Gender: F History of hypertension, dyslipidemia, heart failure with hospitalization, cardiomyopathy, coronary artery disease and arrhythmia. Previous cardiovascular interventions: RN RENAL-D (07/2023) Primary rhythm: V. Paced. Height: 160.02 [...] interventricular septum as detected by Doppler. KO [facility] Jayna 12-03-2023 CNPN Telephone (FAMPWS) ----- SANDRA SCHMITZ ([id number]) 1945 F [place]* Date Time Provider Department 12/03/23 [facility]EP [facility]OUS[facility] During your visit today, we recorded the [...] states that order/letter should be faxed to [facility] Cardiac Rehab [phone]. Please review and advise, CARO Soria Jordan L, DO 12/05/2023 7:20 AM Signed Please create letter as below to hold cardiac rehab due to her back pain for 2-3 weeks DO Juana Gamez Kim E, LPN 12/05/2023 11:08 AM Signed letter completed and signed and faxed to [facility] cardiac rehab. Lillian Arias LPN Allergies [...] 07/18/2022 F (more content not included)... [facility] CNPN Telephone (PODCCP) ----- SANDRA SCHMITZ ([id number]) 1945 [place] Date Time Provider Department 11/28/23 MANDEEP HOUSER PODCCJohn During your visit today, we recorded the following information about you: Concetta Dahl 11/28/2023 11:09 AM Signed Transitional Care Management (TCM) [facility] Monitoring Program Provider Action / FYI: N/A SUMMARY: Outreach type: FOLLOW-UP OUTREACH Discharge Network Status: In-Network Discharge Source of Patient: [facility] TCM Discharge Report Patient discharged from [facility] on 11/18/23. Admitted for Pre-syncope. Contact made with patient: Yes, for Follow-up Outreach Hi, my name is Concetta Dahl. I am calling from the [facility] on behalf of your Primary Care Provider, [...] Center phone number to speak with a wellness specialist who can assist you with that appointment. [...] gout involv (more content not included)... Normal [facility] Jayna 11-23-2023 TIMN Telephone (PODCCP) ----- SANDRA SCHMITZ ([id number]) 1945 [place]* Date Time Provider Department 11/23/23 ROJAS PRAKASH PODCCP During your visit today, we recorded the following information about you: Rojas Prakash RN 11/23/2023 1:30 PM Signed Transitional Care Management (TCM) [facility] Monitoring Program Provider Action / FYI: na SUMMARY: Outreach type: INITIAL OUTREACH Discharge Network Status: In-Network Discharge Source of Patient: [facility] TCM Discharge Report Patient discharged from [facility] on 11.18.23. Admitted for Pre-syncope . Contact [...] right [M19.071] 08/02/2022 Coronary artery disease involving paimiut lopez*08/02/2022 Vitamin D deficiency [E55.9] 08/02/2022 Somatic dysfunction of head region [M99.00] 08/10/2022 Chronic neck pain [M54.2, G89.29] 08/24/2022 Chronic bronchitis (HCC) [J42] 09/11/2022 SVT (supraventricular tachycardia) (HCC) [I47.1*09/11/2022 Combined systol (more content not included)... Normal [facility] CBC panel Auto (Bld)on 11-17 Erythrocyte distribution width (RBC) [Ratio] 14.1 % Normal 11.5-15.0 [facility] Comment on above: Order Comment: Speci men Type: BLOOD SPECIMENOrdering Facility: [facility] Address: [address] [place] [address] [place] [address] Performed By: #### 5 5264-2 ####[facility] LABORATORYCLIA [id number] [address] Hematocrit (Bld) [Volume fraction] 39.4 % Normal 36.0-46.0 [facility] Comment on above: Order Comment: Speci men Type: BLOOD SPECIMENOrdering Facility: [facility] Address: [address] [place] [address] Performed By: #### 5 8410-2 ####KO LABORATORYCLIA [id number] [address] Hemoglobin (Bld) [Mass/Vol] 12.5 g/dL Normal 11.5-15.5 [facility] Comment on above: Order Comment: Speci men Type: BLOOD SPECIMENOrdering Facility: [facility] Address: [address] [place] [address] Performed By: #### 5 8410-2 ####[facility] LABORATORYCLIA [id number] [address] MCH (RBC) [Entitic mass] 28.9 pg Normal 26.0-34.0 [facility] Comment on above: Order Comment: Speci men Type: BLOOD SPECIMENOrdering Facility: [facility] Address: [address] [place] [address] Performed By: #### 5 8410-2 ####KO LABORATORYCLIA [id number] [address] MCHC (RBC) [Mass/Vol] 31.7 g/dL Normal 30.5-36.0 [facility] Comment on above: Order Comment: Speci men Type: BLOOD SPECIMENOrdering Facility: [facility] Address: [address] [place] [address] Performed By: #### 5 8410-2 ####KO LABORATORYCLIA [id number] [address] MCV (RBC) [Entitic vol] 91.2 fL Normal 80.0-100.0 [facility] Comment on above: Order Comment: Speci men Type: BLOOD SPECIMENOrdering Facility: [facility] Address: [address] [place] [address] Performed By: #### 5 8410-2 ####KO LABORATORYCLIA [id number] [place] [address] [place] Nucleated RBC (Bld) [#/Vol] 10*3/uL Normal <0.01 [facility] Comment on above: Order Comment: Speci men Type: BLOOD SPECIMENOrdering Facility: [facility] Address: [address] [place] [address] Performed By: #### 5 8410-2 ####KO LABORATORYCLIA [id number] [place] [address] [place] Platelet mean volume (Bld) [Entitic vol] 10.1 fL Normal 9.0-12.7 [facility] Comment on above: Order Comment: Speci men Type: BLOOD SPECIMENOrdering Facility: [facility] Address: [address] [place] [address] Performed By: #### 5 8410-2 ####KO LABORATORYCLIA [id number] [place] [address] [place] Platelets (Bld) [#/Vol] 345 10*3/uL Normal 150-400 [facility] Comment on above: Order Comment: Speci men Type: BLOOD SPECIMENOrdering Facility: [facility] Address: [address] [place] [address] Performed By: #### 5 8410-2 ####KO LABORATORYCLIA [id number] [place] [address] [place] RBC (Bld) [#/Vol] 4.32 10*6/uL Normal 3.90-5.20 [facility] Comment on above: Order Comment: Speci men Type: BLOOD SPECIMENOrdering Facility: [facility] Address: [address] [place] [address] Performed By: #### 5 8410-2 ####KO LABORATORYCLIA [id number] [place] [address] [place] WBC (Bld) [#/Vol] 11.76 10*3/uL High 3.70-11.00 [facility] Comment on above: Order Comment: Speci men Type: BLOOD SPECIMENOrdering Facility: [facility] Address: [address] [place] [id number] Performed By: #### 5 8410-2 ####[facility] LABORATORYCLIA [id number] [place] [address] [place] CNCOon 11-18-2023 CNCO Letter Text Normal [facility] CNDSon 11-18-2023 CNDS HNO ID: [id number] Author: REMINGTON CAI MD Service: Hospital Medicine [...] Provider: Remington Cai MD Primary Service: , [facility] Consulting: Bentley Nolasco MD MY CONDITION [...] call for appointment?: Scheduled Mandeep Houser, [address] [facility] [place] [address] PCP Requested Referral Follow-Up Appointment When: In 2 weeks Bentley Nolasco MD [phone] [facility] [address] [facility] [facility] [address] PCP Requested Referral Follow-Up Appointment When: In 2 weeks Angel Castro DO [phone] [address] [place] [address] PCP Requested Referral Additional Provider to Provider [...] [phone] (more content not included)... Normal [facility] CONSULTon 11-18-2023 CONSULT HNO ID: [id number] Author: BENTLEY NOLASCO MD Service: Gastroenterology Author [...] medical history significant for NICM/systolic CHF s/p RN RENAL-D, IBS, Factor V Leiden, HTN, HPL, hypothyroidism who presented to ED on 11/15/23 with episode of pre-syncope, facial tingling. Labs with [place], leukocytosis. [place] to be vasovagal episode. A GI evaluation [...] on chronic systolic CHF (congestive heart failure) ([facility]) 05/03/2020 Aspiration pneumonia ([facility]) 05/30/2020 Chest pain 05/03/2020 Chest pressure 01/23/2013 Chronic diastolic congestive heart failure ([facility]) 02/14/2021 Clostridium difficile diarrhea 09/28/2020 Complete uterovaginal prolapse Cystocele, midline Essential hypertension 06/14/2020 Homozygous Factor V Leiden mutation ([facility]) 05/03/2020 Hypothyroidism IBS (irritable bowel syndrome) 01/23/2013 [...] once daily., (more content not included)... Normal [facility] CRP SerPl-mCncon 11-18-2023 CRP [Mass/Vol] 1.2 mg/dL High <0.9 [facility] Comment on above: Order Comment: Speci men Type: BLOOD SPECIMENOrdering Facility: [facility] Address: [address] [place] [address] Performed By: #### 1 9123-9, 3016-3, 06045-5, 1987-09 ####KO LABORATORYCLIA [id number] [place] [address] [place] Comprehensive metabolic 2000 panelon 11-18-2023 Albumin [Mass/Vol] 3.8 g/dL Low 3.9-4.9 [facility] Comment on above: Order Comment: Speci men Type: BLOOD SPECIMENOrdering Facility: [facility] Address: [address] [place] [address] Performed By: #### 1 9123-9, 3015-3, , 1987-09 ####[facility] LABORATORYCLIA [id number] [place] [address] [place] ALP [Catalytic activity/Vol] 63 U/L Normal 34-123 [facility] Comment on above: Order Comment: Speci men Type: BLOOD SPECIMENOrdering Facility: [facility] Address: [address] [place] [address] Performed By: #### 1 9123-9, 3, , 1987-09 ####[facility] LABORATORYCLIA [id number] [place] [address] [place] ALT [Catalytic activity/Vol] 14 U/L Normal 7-38 [facility] Comment on above: Order Comment: Speci men Type: BLOOD SPECIMENOrdering Facility: [facility] Address: [address] [place] [address] Performed By: #### 1 9123-9, 3, , 1987-09 ####[facility]N LABORATORYCLIA [id number] [place] [id number] [place] Anion gap [Moles/Vol] 7 mmol/L Low 8-15 [facility] Comment on above: Order Comment: Speci men Type: BLOOD SPECIMENOrdering Facility: [facility] Address: [address] [place] [address] Performed By: #### 1 9123-9, 3, , 1987-09 ####KO LABORATORYCLIA [id number] [place] [address] [place] AST [Catalytic activity/Vol] 15 U/L Normal 13-35 [facility] Comment on above: Order Comment: Speci men Type: BLOOD SPECIMENOrdering Facility: [facility] Address: [address] [place] [address] Performed By: #### 1 9123-9, 3, , 1987-09 ####KO LABORATORYCLIA [id number] [place] [address] [place] Bilirubin [Mass/Vol] 0.5 mg/dL Normal 0.2-1.3 [facility] Comment on above: Order Comment: Speci men Type: BLOOD SPECIMENOrdering Facility: [facility] Address: [facility] [place] [address] Performed By: #### 1 9123-9, 3015-07, , 1987-09 ####LINCOLN LABORATORYCLIA [id number] [place] [address] [place] Calcium [Mass/Vol] 9.1 mg/dL Normal 8.5-10.2 [facility] Comment on above: Order Comment: Speci men Type: BLOOD SPECIMENOrdering Facility: [facility] Address: [facility] [place] [phone] Performed By: #### 1 9123-9, 3015-07, , 1987-09 ####LINCOLN LABORATORYCLIA [id number] [place] [address] [place] Chloride [Moles/Vol] 104 mmol/L Normal 98-107 [facility] Comment on above: Order Comment: Speci men Type: BLOOD SPECIMENOrdering Facility: [facility] Address: [address] [place] [phone] Performed By: #### 1 9123-9, 3, , 1987-09 ####KO LABORATORYCLIA [id number] [place] [address] [place] CO2 [Moles/Vol] 29 mmol/L Normal 22-30 [facility] Comment on above: Order Comment: Speci men Type: BLOOD SPECIMENOrdering Facility: [facility] Address: [facility] [place] [address] Performed By: #### 1 9123-9, 6-3, , 1987-09 ####LINCOLN LABORATORYCLIA [id number] [place] [address] [place] [facility] Creatinine [Mass/Vol] 0.96 mg/dL Normal 0.58-0.96 [facility] Comment on above: Order Comment: Lenard jesus Type: BLOOD SPECIMENOrdering Facility: [facility] Address: [address] [place] [address] Performed By: #### 1 9123-9, 3015-3, , 1987-09 ####LINCOLN LABORATORYCLIA [id number] [place] [id number] [facility] Creatinine and Glomerular filtration rate.predicted panel (S/P/Bld) 61 mL/min/1.73m??? Normal >=60 [facility] Comment on above: Order Comment: [facility] Type: BLOOD SPECIMENOrdering Facility: [facility] Address: [address] [place] [address] Result Comment: Aaron mated Glomerular Filtration Rate [...] By: #### 1 9123-9, 3015-3, , 1987-09 ####LINCOLN LABORATORYCLIA [id number] [place] [id number] [place] [facility] Glucose [Mass/Vol] 81 mg/dL Normal 74-99 [facility] Comment on above: Order Comment: [facility] Type: BLOOD SPECIMENOrdering Facility: [facility] Address: [address] [place] [address] Result Comment: The [place] Diabetes Association (ADA) provides guidance for cutoff [...] Standards of Medical Care in Diabetes 2016, [place] Diabetes [employer]. Diabetes Care. 2016.39(Suppl 1). Performed By: #### 1 9123-9, 3, , 1987-09 ####KO LABORATORYCLIA [id number] [place] [address] [place] Potassium [Moles/Vol] 4.1 mmol/L Normal 3.7-5.1 [facility] Comment on above: Order Comment: Lenard jesus Type: BLOOD SPECIMENOrdering Facility: [facility] Address: [address] [place] [address] Performed By: #### 1 91239, 3015-07, , 1987-09 ####KO LABORATORYCLIA [id number] [place] [address] [place] Protein [Mass/Vol] 6.4 g/dL Normal 6.3-8.0 [facility] Comment on above: Order Comment: Lenard jesus Type: BLOOD SPECIMENOrdering Facility: [facility] Address: [address] [place] [address] Performed By: #### 1 9123-9, 3015-07, , 1987-09 ####KO LABORATORYCLIA [id number] [place] [id number] [place] Sodium [Moles/Vol] 140 mmol/L Normal 136-144 [facility] Comment on above: Order Comment: Lenard jesus Type: BLOOD SPECIMENOrdering Facility: [facility] Address: [address] [place] [address] Performed By: #### 1 9123-9, 3015-07, , 1987-09 ####KO LABORATORYCLIA [id number] [place] [address] [place] Urea nitrogen [Mass/Vol] 30 mg/dL High 7-21 [facility] Comment on above: Order Comment: Speci men Type: BLOOD SPECIMENOrdering Facility: [facility] Address: [address] [place] [address] [place] [phone] Performed By: #### 1 9123-9, 3, , 1987-09 ####KO LABORATORYCLIA [id number] [place] [address] [place] Magnesium SerPl-mCncon 11-17 Magnesium [Mass/Vol] 1.9 mg/dL Normal 1.7-2.3 [facility] Comment on above: Order Comment: Speci men Type: BLOOD SPECIMENOrdering Facility: [facility] Address: [address] [place] [address] Performed By: #### 1 9123-9, 3015-07, , 1987-09 ####LINCOLN LABORATORYCLIA [id number] [place] [address] [place] TSH SerPl-aCncon 11-18-2023 TSH Qn 3.520 m[IU]/L Normal 0.270-4.200 [facility] Comment on above: Order Comment: Speci men Type: BLOOD SPECIMENOrdering Facility: [facility] Address: [address] [place] [address] [place] [address] Performed By: #### 1 9123-9, 3015-07, , 1987-09 ####KO LABORATORYCLIA [id number] [place] [address] [place] CBC panel Auto (Bld)on 11-16 Erythrocyte distribution width (RBC) [Ratio] 14.2 % Normal 11.5-15.0 [facility] Comment on above: Order Comment: Speci men Type: BLOOD SPECIMENOrdering Facility: [facility] Address: [address] [place] [address] Performed By: #### 5 8410-2 ####LINCOLN LABORATORYCLIA [id number] [address] [place] Hematocrit (Bld) [Volume fraction] 36.8 % Normal 36.0-46.0 [facility] Comment on above: Order Comment: Speci men Type: BLOOD SPECIMENOrdering Facility: [facility] Address: [address] [place] [address] Performed By: #### 5 8410-2 ####KO LABORATORYCLIA [id number] [address] Hemoglobin (Bld) [Mass/Vol] 11.6 g/dL Normal 11.5-15.5 [facility] Comment on above: Order Comment: Speci men Type: BLOOD SPECIMENOrdering Facility: [facility] Address: [address] [place] [address] Performed By: #### 5 8410-2 ####KO LABORATORYCLIA [id number] [address] MCH (RBC) [Entitic mass] 29.1 pg Normal 26.0-34.0 [facility] Comment on above: Order Comment: Speci men Type: BLOOD SPECIMENOrdering Facility: [facility] Address: [address] [place] [address] Performed By: #### 5 8410-2 ####KO LABORATORYCLIA [id number] [address] MCHC (RBC) [Mass/Vol] 31.5 g/dL Normal 30.5-36.0 [facility] Comment on above: Order Comment: Speci men Type: BLOOD SPECIMENOrdering Facility: [facility] Address: [address] [place] [address] Performed By: #### 5 8410-2 ####KO LABORATORYCLIA [id number] [address] MCV (RBC) [Entitic vol] 92.2 fL Normal 80.0-100.0 [facility] Comment on above: Order Comment: Speci men Type: BLOOD SPECIMENOrdering Facility: [facility] Address: [address] [place] [address] Performed By: #### 5 8410-2 ####KO LABORATORYCLIA [id number] [address] Nucleated RBC (Bld) [#/Vol] 10*3/uL Normal <0.01 [facility] Comment on above: Order Comment: Speci men Type: BLOOD SPECIMENOrdering Facility: [facility] Address: [address] [place] [address] Performed By: #### 5 8410-2 ####KO LABORATORYCLIA [id number] [place] [address] [place] Platelet mean volume (Bld) [Entitic vol] 9.8 fL Normal 9.0-12.7 [facility] Comment on above: Order Comment: Speci men Type: BLOOD SPECIMENOrdering Facility: [facility] Address: [address] [place] [address] Performed By: #### 5 8410-2 ####KO LABORATORYCLIA [id number] [place] [address] [place] Platelets (Bld) [#/Vol] 321 10*3/uL Normal 150-400 [facility] Comment on above: Order Comment: Speci men Type: BLOOD SPECIMENOrdering Facility: [facility] Address: [address] [place] [address] Performed By: #### 5 8410-2 ####KO LABORATORYCLIA [id number] [place] [address] [place] RBC (Bld) [#/Vol] 3.99 10*6/uL Normal 3.90-5.20 [facility] Comment on above: Order Comment: Speci men Type: BLOOD SPECIMENOrdering Facility: [facility] Address: [address] [place] [address] Performed By: #### 5 8410-2 ####KO LABORATORYCLIA [id number] [place] [address] [place] WBC (Bld) [#/Vol] 9.28 10*3/uL Normal 3.70-11.00 [facility] Comment on above: Order Comment: Speci men Type: BLOOD SPECIMENOrdering Facility: [facility] Address: [address] [place] [address] Performed By: #### 5 8410-2 ####KO LABORATORYCLIA [id number] [place] [address] [place] Comprehensive metabolic 2000 panelon 11-17-2023 Albumin [Mass/Vol] 3.5 g/dL Low 3.9-4.9 [facility] Comment on above: Order Comment: Speci men Type: BLOOD SPECIMENOrdering Facility: [facility] Address: [address] [place] [address] Performed By: #### 2 432-8, ####KO LABORATORYCLIA [id number] [place] [address] [place] ALP [Catalytic activity/Vol] 56 U/L Normal 34-123 [facility] Comment on above: Order Comment: Speci men Type: BLOOD SPECIMENOrdering Facility: [facility] Address: [address] [place] [address] Performed By: #### 2 4322-8, ####KO LABORATORYCLIA [id number] [address] [place] ALT [Catalytic activity/Vol] 16 U/L Normal 7-38 [facility] Comment on above: Order Comment: Speci men Type: BLOOD SPECIMENOrdering Facility: [facility] Address: [address] [place] [address] Performed By: #### 2 8, ####KO LABORATORYCLIA [id number] [address] [place] Anion gap [Moles/Vol] 5 mmol/L Low 8-15 [facility] Comment on above: Order Comment: Speci men Type: BLOOD SPECIMENOrdering Facility: [facility] Address: [address] [place] [address] Performed By: #### 2 4322-8, ####KO LABORATORYCLIA [id number] [place] [id number] [place] AST [Catalytic activity/Vol] 16 U/L Normal 13-35 [facility] Comment on above: Order Comment: Speci men Type: BLOOD SPECIMENOrdering Facility: [facility] Address: [address] [place] [address] Performed By: #### 2 4322-8, 97928-8 ####KO LABORATORYCLIA [id number] [place] [address] [place] Bilirubin [Mass/Vol] 0.4 mg/dL Normal 0.2-1.3 [facility] Comment on above: Order Comment: Speci men Type: BLOOD SPECIMENOrdering Facility: [facility] Address: [address] [place] [address] Performed By: #### 2 4323-8, ####KO LABORATORYCLIA [id number] [place] [address] [place] Calcium [Mass/Vol] 8.5 mg/dL Normal 8.5-10.2 [facility] Comment on above: Order Comment: Speci men Type: BLOOD SPECIMENOrdering Facility: [facility] Address: [address] [place] [address] Performed By: #### 2 4323-8, ####KO LABORATORYCLIA [id number] [place] [address] [place] Chloride [Moles/Vol] 110 mmol/L High 98-107 [facility] Comment on above: Order Comment: Speci men Type: BLOOD SPECIMENOrdering Facility: [facility] Address: [address] [place] [address] Performed By: #### 2 4323-8, ####KO LABORATORYCLIA [id number] [place] [address] [place] CO2 [Moles/Vol] 28 mmol/L Normal 22-30 [facility] Comment on above: Order Comment: Speci men Type: BLOOD SPECIMENOrdering Facility: [facility] Address: [address] [place] [address] Performed By: #### 2 4323-8, ####KO LABORATORYCLIA [id number] [place] [address] [place] Creatinine [Mass/Vol] 1.05 mg/dL High 0.58-0.96 [facility] Comment on above: Order Comment: Speci men Type: BLOOD SPECIMENOrdering Facility: [facility] Address: [address] [place] [address] Performed By: #### 2 4323-8, ####KO LABORATORYCLIA [id number] [place] [address] [place] Creatinine and Glomerular filtration rate.predicted panel (S/P/Bld) 55 mL/min/1.73m??? Low >=60 [facility] Comment on above: Order Comment: Lenard jesus Type: BLOOD SPECIMENOrdering Facility: [facility] Address: [address] [place] [address] Result Comment: Aaron mated Glomerular Filtration Rate [...] Performed By: #### 2 4323-8, ####KO LABORATORYCLIA [id number] [place] [id number] [place] Glucose [Mass/Vol] 79 mg/dL Normal 74-99 [facility] Comment on above: Order Comment: Lenard jesus Type: BLOOD SPECIMENOrdering Facility: [facility] Address: [address] [place] [address] Result Comment: The [place] Diabetes Association (ADA) provides guidance for cutoff [...] Standards of Medical Care in Diabetes 2016, [place] Diabetes Association. Diabetes Care. 2016.39(Suppl 1). Performed By: #### 2 4323-8, ####KO LABORATORYCLIA [id number] [place] [address] [place] Potassium [Moles/Vol] 4.8 mmol/L Normal 3.7-5.1 [facility] Comment on above: Order Comment: Speci men Type: BLOOD SPECIMENOrdering Facility: [facility] Address: [address] [place] [phone] Performed By: #### 2 4323-8, ####KO LABORATORYCLIA [id number] [place] [address] [place] Protein [Mass/Vol] 6.0 g/dL Low 6.3-8.0 [facility] Comment on above: Order Comment: Speci men Type: BLOOD SPECIMENOrdering Facility: [facility] Address: [address] [place] [address] [place] [address] Performed By: #### 2 432-8, ####KO LABORATORYCLIA [id number] [place] [address] [place] Sodium [Moles/Vol] 143 mmol/L Normal 136-144 [facility] Comment on above: Order Comment: Speci men Type: BLOOD SPECIMENOrdering Facility: [facility] Address: [address] [place] [address] Performed By: #### 2 4323-8, ####KO LABORATORYCLIA [id number] [place] [address] [place] Urea nitrogen [Mass/Vol] 34 mg/dL High 7-21 [facility] Comment on above: Order Comment: Speci men Type: BLOOD SPECIMENOrdering Facility: [facility] Address: [address] [place] [id number] Performed By: #### 2 4323-8, ####KO LABORATORYCLIA [id number] [place] [address] [place] Magnesium SerPl-mCncon 11-16 Magnesium [Mass/Vol] 2.0 mg/dL Normal 1.7-2.3 [facility] Comment on above: Order Comment: Speci men Type: BLOOD SPECIMENOrdering Facility: [facility] Address: [address] [place] [address] Performed By: #### 2 432-8, ####KO LABORATORYCLIA [id number] [address] CBC panel Auto (Bld)on 11-15 Erythrocyte distribution width (RBC) [Ratio] 14.3 % Normal 11.5-15.0 [facility] Comment on above: Order Comment: Speci men Type: BLOOD SPECIMENOrdering Facility: [facility] Address: [address] [place] [address] Performed By: #### 5 8410-2 ####KO LABORATORYCLIA [id number] [address] Hematocrit (Bld) [Volume fraction] 37.4 % Normal 36.0-46.0 [facility] Comment on above: Order Comment: Speci men Type: BLOOD SPECIMENOrdering Facility: [facility] Address: [address] [place] [address] Performed By: #### 5 8410-2 ####KO LABORATORYCLIA [id number] [address] Hemoglobin (Bld) [Mass/Vol] 11.8 g/dL Normal 11.5-15.5 [facility] Comment on above: Order Comment: Speci men Type: BLOOD SPECIMENOrdering Facility: [facility] Address: [address] [place] [address] Performed By: #### 5 8410-2 ####KO LABORATORYCLIA [id number] [address] MCH (RBC) [Entitic mass] 28.9 pg Normal 26.0-34.0 [facility] Comment on above: Order Comment: Speci men Type: BLOOD SPECIMENOrdering Facility: [facility] Address: [address] [place] [address] Performed By: #### 5 8410-2 ####KO LABORATORYCLIA [id number] [address] MCHC (RBC) [Mass/Vol] 31.6 g/dL Normal 30.5-36.0 [facility] Comment on above: Order Comment: Speci men Type: BLOOD SPECIMENOrdering Facility: [facility] Address: [address] [place] [address] Performed By: #### 5 8410-2 ####KO LABORATORYCLIA [id number] [address] [place] MCV (RBC) [Entitic vol] 91.4 fL Normal 80.0-100.0 [facility] Comment on above: Order Comment: Speci men Type: BLOOD SPECIMENOrdering Facility: [facility] Address: [address] [place] [address] Performed By: #### 5 8410-2 ####KO LABORATORYCLIA [id number] [address] Nucleated RBC (Bld) [#/Vol] 10*3/uL Normal <0.01 [facility] Comment on above: Order Comment: Speci men Type: BLOOD SPECIMENOrdering Facility: [facility] Address: [address] [place] [address] Performed By: #### 5 8410-2 ####KO LABORATORYCLIA [id number] [address] [place] Platelet mean volume (Bld) [Entitic vol] 10.1 fL Normal 9.0-12.7 [facility] Comment on above: Order Comment: Speci men Type: BLOOD SPECIMENOrdering Facility: [facility] Address: [address] [place] [address] Performed By: #### 5 8410-2 ####KO LABORATORYCLIA [id number] [address] [place] Platelets (Bld) [#/Vol] 356 10*3/uL Normal 150-400 [facility] Comment on above: Order Comment: Speci men Type: BLOOD SPECIMENOrdering Facility: [facility] Address: [address] [place] [address] Performed By: #### 5 8410-2 ####KO LABORATORYCLIA [id number] [place] [address] [facility] [place] RBC (Bld) [#/Vol] 4.09 10*6/uL Normal 3.90-5.20 [facility] Comment on above: Order Comment: Speci men Type: BLOOD SPECIMENOrdering Facility: [facility] Address: [address] [place] [address] Performed By: #### 5 8410-2 ####KO LABORATORYCLIA [id number] [place], [place] [id number] [place] [address] OF [facility] WBC (Bld) [#/Vol] 13.58 10*3/uL High 3.70-11.00 [facility] Comment on above: Order Comment: Speci men Type: BLOOD SPECIMENOrdering Facility: [facility] Address: [address] [place] [address] [place] [phone] Performed By: #### 5 8410-2 ####KO LABORATORYCLIA [id number] [address] Comprehensive metabolic 2000 panelon 11-16-2023 Albumin [Mass/Vol] 3.4 g/dL Low 3.9-4.9 [facility] Comment on above: Order Comment: Speci men Type: BLOOD SPECIMENOrdering Facility: [facility] Address: [address] [place], [place] [address] [phone] Performed By: #### 2 4323-8, ####KO LABORATORYCLIA [id number] [address] OF [facility] ALP [Catalytic activity/Vol] 58 U/L Normal 34-123 [facility] Comment on above: Order Comment: Speci men Type: BLOOD SPECIMENOrdering Facility: [facility] Address: [address] [place] [id number] Performed By: #### 2 4323-8, 43401-1 ####KO LABORATORYCLIA [id number] [place] [id number] [facility] ALT [Catalytic activity/Vol] 15 U/L Normal 7-38 [facility] Comment on above: Order Comment: Speci men Type: BLOOD SPECIMENOrdering Facility: [facility] Address: [address] [place] [phone] Performed By: #### 2 4323-8, 10592-3 ####KO LABORATORYCLIA [id number] [place] [id number] [facility] [place] Anion gap [Moles/Vol] 10 mmol/L Normal 8-15 [facility] Comment on above: Order Comment: Speci men Type: BLOOD SPECIMENOrdering Facility: [facility] Address: [address] [place] [address] Performed By: #### 2 4323-8, ####KO LABORATORYCLIA [id number] [address] [place] AST [Catalytic activity/Vol] 16 U/L Normal 13-35 [facility] Comment on above: Order Comment: Speci men Type: BLOOD SPECIMENOrdering Facility: [facility] Address: [address] [place], [place] [address] [address] Performed By: #### 2 432-8, ####KO LABORATORYCLIA [id number] [address] [place] Bilirubin [Mass/Vol] 0.3 mg/dL Normal 0.2-1.3 [facility] Comment on above: Order Comment: Speci men Type: BLOOD SPECIMENOrdering Facility: [facility] Address: [address] [place] [address] Performed By: #### 2 8, ####KO LABORATORYCLIA [id number] [address] [place] Calcium [Mass/Vol] 8.6 mg/dL Normal 8.5-10.2 [facility] Comment on above: Order Comment: Speci men Type: BLOOD SPECIMENOrdering Facility: [facility] Address: [address] [place] [address] Performed By: #### 2 432-8, ####KO LABORATORYCLIA [id number] [place] [address] [place] Chloride [Moles/Vol] 105 mmol/L Normal 98-107 [facility] Comment on above: Order Comment: Speci men Type: BLOOD SPECIMENOrdering Facility: [facility] Address: [address] [place] [address] Performed By: #### 2 432-8, ####KO LABORATORYCLIA [id number] [place] [id number] [place] CO2 [Moles/Vol] 25 mmol/L Normal 22-30 [facility] Comment on above: Order Comment: Lenard jesus Type: BLOOD SPECIMENOrdering Facility: [facility] [facility] Address: [address] [place] [address] Performed By: #### 2 4323-8, ####KO LABORATORYCLIA [id number] [place] [address] [place] Creatinine [Mass/Vol] 1.28 mg/dL High 0.58-0.96 [facility] Comment on above: Order Comment: Speci men Type: BLOOD SPECIMENOrdering Facility: [facility] Address: [address] [place] [address] Performed By: #### 2 4323-8, ####KO LABORATORYCLIA [id number] [address] Creatinine and Glomerular filtration rate.predicted panel (S/P/Bld) 43 mL/min/1.73m??? Low >=60 [facility] Comment on above: Order Comment: Speci men Type: BLOOD SPECIMENOrdering Facility: [facility] Address: [address] [place] [address] Result Comment: Aaron mated Glomerular Filtration Rate [...] Performed By: #### 2 4323-8, ####KO LABORATORYCLIA [id number] [place] [id number] [place] Glucose [Mass/Vol] 121 mg/dL High 74-99 [facility] Comment on above: Order Comment: Ernestinei edin Type: BLOOD SPECIMENOrdering Facility: [facility] Address: [address] [place] [address] Result Comment: The [place] Diabetes Association (ADA) provides guidance for cutoff [...] Standards of Medical Care in Diabetes 2016, [place] Diabetes Association. Diabetes Care. 2016.39(Suppl 1). Performed By: #### 2 4328, ####KO LABORATORYCLIA [id number] [place] [address] [place] Potassium [Moles/Vol] 4.7 mmol/L Normal 3.7-5.1 [facility] Comment on above: Order Comment: Lenard jesus Type: BLOOD SPECIMENOrdering Facility: [facility] Address: [address] [place] [address] Performed By: #### 2 4322-12, ####KO LABORATORYCLIA [id number] [place] [address] [place] Protein [Mass/Vol] 6.3 g/dL Normal 6.3-8.0 [facility] Comment on above: Order Comment: Lenard jesus Type: BLOOD SPECIMENOrdering Facility: [facility] Address: [address] [place] [address] Performed By: #### 2 4322-12, ####KO LABORATORYCLIA [id number] [place] [address] [place] Sodium [Moles/Vol] 140 mmol/L Normal 136-144 [facility] Comment on above: Order Comment: Lenard jesus Type: BLOOD SPECIMENOrdering Facility: [facility] Address: [address] [place] [address] Performed By: #### 2 4328, ####KO LABORATORYCLIA [id number] [place] [address] [place] Urea nitrogen [Mass/Vol] 46 mg/dL High 7-21 [facility] Comment on above: Order Comment: Speci men Type: BLOOD SPECIMENOrdering Facility: [facility] Address: [address] [place], [place] [address] Performed By: #### 2 4323-8, 48512-0 ####LINCOLN LABORATORYCLIA [id number] [place] [address] [facility] [place] Magnesium SerPl-mCncon 11-15 Magnesium [Mass/Vol] 2.1 mg/dL Normal 1.7-2.3 [facility] Comment on above: Order Comment: Speci men Type: BLOOD SPECIMENOrdering Facility: [facility] Address: [address] [place] [address] Performed By: #### 2 4323-8, ####LINCOLN LABORATORYCLIA [id number] [place] [address] [facility] NURSING PROGon 11-16-2023 NURSING PROG HNO ID: [id number] Author: MISTY ASCENCIO, CARO Service: Nursing Author Type: Registered Nurse Type: Nursing Progress Note Filed: 11/16/2023 14:15 Note Text: PATIENT EDUCATION HEART FAILURE PATIENT NAME: Sandra Schmitz PATIENT LOCATION: [place] [address] [address] SURVIVAL SKILLS: Low Sodium Diet Weight Monitoring [...] rehab post insertion of pacemaker/defib. [facility]s [facility] ,as well as, [facility]. States she missed her echo [...] (RECOMMENDATION): Cardiology Electronically Signed By: Mist[facility]io [facility] HNO ID: [id number] Author: JESUS PADILLA RT(R) Service: Radiology Author [...] PATIENT PRESENTS WITH AN IMPLANTABLE OR ATTACHED FIELD TECHNICAL ASSISTANT: No RADIOLOGY DEPARTMENT: General X-ray: Exam(s) Completed: Chest X-Ray PERIPHERAL IV DATA: Not applicable SIGNED BY: RT William(R) November 15, 2023 8:26 PM [facility] HNO ID: [id number] Author: MASON VAIL RT(R) Service: Radiology Author [...] PATIENT PRESENTS WITH AN IMPLANTABLE OR ATTACHED FIELD TECHNICAL ASSISTANT: No RADIOLOGY DEPARTMENT: CT; Exam(s) Completed: Abdomen/Pelvis and Brain PERIPHERAL IV DATA: Inpatient: see LDA documentation SIGNED BY: RT Dominique(R) November 15, 2023 8:05 PM Normal [facility] CBC W Auto Differential pane l (Bld)on 11-15-2023 Basophils (Bld) [#/Vol] 0.10 10*3/uL Normal <0.11 [facility] Comment on above: Order Comment: Speci men Type: BLOOD SPECIMENOrdering Facility: [facility] Address: [address] [place] [address] Performed By: #### 5 7021-8 ####KO LABORATORYCLIA [id number] [place] [address] [place] Basophils/100 WBC (Bld) 0.6 % Normal [facility] Comment on above: Order Comment: Speci men Type: BLOOD SPECIMENOrdering Facility: [facility] Address: [address] [place] [address] Performed By: #### 5 7021-8 ####KO LABORATORYCLIA [id number] [place] [address] [place] Differential cell count method Nom (Bld) Auto Normal [facility] Comment on above: Order Comment: Speci men Type: BLOOD SPECIMENOrdering Facility: [facility] Address: [address] [place] [address] Performed By: #### 5 7021-8 ####KO LABORATORYCLIA [id number] [address] [place] Eosinophils (Bld) [#/Vol] 0.22 10*3/uL Normal <0.46 [facility] Comment on above: Order Comment: Speci men Type: BLOOD SPECIMENOrdering Facility: [facility] Address: [address] [place] [address] Performed By: #### 5 7021-8 ####KO LABORATORYCLIA [id number] [address] Eosinophils/100 WBC (Bld) 1.4 % Normal [facility] Comment on above: Order Comment: Speci men Type: BLOOD SPECIMENOrdering Facility: [facility] Address: [address] [place] [address] Performed By: #### 5 7021-8 ####KO LABORATORYCLIA [id number] [address] [place] Erythrocyte distribution width (RBC) [Ratio] 14.3 % Normal 11.5-15.0 [facility] Comment on above: Order Comment: Speci men Type: BLOOD SPECIMENOrdering Facility: [facility] Address: [address] [place] [address] Performed By: #### 5 7021-8 ####KO LABORATORYCLIA [id number] [address] Hematocrit (Bld) [Volume fraction] 43.3 % Normal 36.0-46.0 [facility] Comment on above: Order Comment: Speci men Type: BLOOD SPECIMENOrdering Facility: [facility] Address: [address] [place] [address] Performed By: #### 5 7021-8 ####KO LABORATORYCLIA [id number] [address] [place] Hemoglobin (Bld) [Mass/Vol] 13.8 g/dL Normal 11.5-15.5 [facility] Comment on above: Order Comment: Speci men Type: BLOOD SPECIMENOrdering Facility: [facility] Address: [address] [place] [address] Performed By: #### 5 7021-8 ####KO LABORATORYCLIA [id number] [place] [address] [place] Immature granulocytes (Bld) [#/Vol] 0.25 10*3/uL High <0.10 [facility] Comment on above: Order Comment: Speci men Type: BLOOD SPECIMENOrdering Facility: [facility] Address: [address] [place] [address] Performed By: #### 5 7021-8 ####KO LABORATORYCLIA [id number] [address] STATES [facility] Immature granulocytes/100 WBC (Bld) 1.6 % Normal [facility] Comment on above: Order Comment: Speci men Type: BLOOD SPECIMENOrdering Facility: [facility] Address: [address] [place] [address] Performed By: #### 5 7021-8 ####KO LABORATORYCLIA [id number] [address] [place] Lymphocytes (Bld) [#/Vol] 2.35 10*3/uL Normal 1.00-4.00 [facility] Comment on above: Order Comment: Speci men Type: BLOOD SPECIMENOrdering Facility: [facility] Address: [address] [place] [address] Performed By: #### 5 7021-8 ####KO LABORATORYCLIA [id number] [address] Lymphocytes/100 WBC (Bld) 15.0 % Normal [facility] Comment on above: Order Comment: Speci men Type: BLOOD SPECIMENOrdering Facility: [facility] Address: [address] [place] [address] Performed By: #### 5 7021-8 ####KO LABORATORYCLIA [id number] [place] [address] [place] MCH (RBC) [Entitic mass] 29.3 pg Normal 26.0-34.0 [facility] Comment on above: Order Comment: Speci men Type: BLOOD SPECIMENOrdering Facility: [facility] Address: [address] [place] [address] Performed By: #### 5 7021-8 ####KO LABORATORYCLIA [id number] [place] [id number] [place] MCHC (RBC) [Mass/Vol] 31.9 g/dL Normal 30.5-36.0 [facility] Comment on above: Order Comment: Speci men Type: BLOOD SPECIMENOrdering Facility: [facility] Address: [address] [place] [address] Performed By: #### 5 7021-8 ####KO LABORATORYCLIA [id number] [place] [address] [place] MCV (RBC) [Entitic vol] 91.9 fL Normal 80.0-100.0 [facility] Comment on above: Order Comment: Speci men Type: BLOOD SPECIMENOrdering Facility: [facility] Address: [address] [place] [address] Performed By: #### 5 7021-8 ####KO LABORATORYCLIA [id number] [place] [address] [place] Monocytes (Bld) [#/Vol] 1.05 10*3/uL High <0.87 [facility] Comment on above: Order Comment: Speci men Type: BLOOD SPECIMENOrdering Facility: [facility] Address: [address] [place] [address] Performed By: #### 5 7021-8 ####KO LABORATORYCLIA [id number] [address] Monocytes/100 WBC (Bld) 6.7 % Normal [facility] Comment on above: Order Comment: Speci men Type: BLOOD SPECIMENOrdering Facility: [facility] Address: [address] [place] [address] Performed By: #### 5 7021-8 ####KO LABORATORYCLIA [id number] [place] [id number] [place] Neutrophils (Bld) [#/Vol] 11.69 10*3/uL High 1.45-7.50 [facility] Comment on above: Order Comment: Speci men Type: BLOOD SPECIMENOrdering Facility: [facility] Address: [address] [place] [address] Performed By: #### 5 7021-8 ####KO LABORATORYCLIA [id number] [address] Neutrophils/100 WBC (Bld) 74.7 % Normal [facility] Comment on above: Order Comment: Speci men Type: BLOOD SPECIMENOrdering Facility: [facility] Address: [address] [place] [address] Performed By: #### 5 7021-8 ####KO LABORATORYCLIA [id number] [place] [address] [place] Nucleated RBC (Bld) [#/Vol] 10*3/uL Normal <0.01 [facility] Comment on above: Order Comment: Speci men Type: BLOOD SPECIMENOrdering Facility: [facility] Address: [address] [place] [address] Performed By: #### 5 7021-8 ####KO LABORATORYCLIA [id number] [address] STATES [facility] Nucleated RBC/100 WBC (Bld) [Ratio] 0.0 /100 WBC Normal [facility] Comment on above: Order Comment: Speci men Type: BLOOD SPECIMENOrdering Facility: [facility] Address: [address] [place] [address] Performed By: #### 5 7021-8 ####KO LABORATORYCLIA [id number] [address] [place] Platelet mean volume (Bld) [Entitic vol] 10.4 fL Normal 9.0-12.7 [facility] Comment on above: Order Comment: Speci men Type: BLOOD SPECIMENOrdering Facility: [facility] Address: [address] [place] [address] Performed By: #### 5 7021-8 ####KO LABORATORYCLIA [id number] [address] [place] Platelets (Bld) [#/Vol] 386 10*3/uL Normal 150-400 [facility] Comment on above: Order Comment: Speci men Type: BLOOD SPECIMENOrdering Facility: [facility] Address: [address] [place] [address] Performed By: #### 5 7021-8 ####KO LABORATORYCLIA [id number] [place] [address] [place] RBC (Bld) [#/Vol] 4.71 10*6/uL Normal 3.90-5.20 [facility] Comment on above: Order Comment: Speci men Type: BLOOD SPECIMENOrdering Facility: [facility] Address: [address] [place] [address] Performed By: #### 5 7021-8 ####KO LABORATORYCLIA [id number] [place] [address] [place] WBC (Bld) [#/Vol] 15.66 10*3/uL High 3.70-11.00 [facility] Comment on above: Order Comment: Speci men Type: BLOOD SPECIMENOrdering Facility: [facility] Address: [address] [place] [address] Performed By: #### 5 7021-8 ####LINCOLN LABORATORYCLIA [id number] [address] OF [facility] CT ABD/PEL WO IVCONon 2023 CT ABD/PEL WO IVCON * * *Final Report* * * DATE OF EXAM: Nov 15 2023 8:16PM [facility] 0531 - CT ABD/PEL WO IVCON / [...] Additional findings as detailed in the report. Tricot Knitter: PSCB Transcribe Date/Time: Nov 15 2023 8:42P Dictated by : PATRICIA GARCÍA MD This examination was interpreted and the report reviewed and electronically signed by: PATRICIA GARCÍA MD on Nov 15 2023 8:44PM EST [id number] [facility] CT BRAIN WO IVCONon 11-15-19 CT BRAIN WO IVCON * * *Final Report* * * DATE OF EXAM: Nov 15 2023 8:16PM [facility] 0504 - CT BRAIN WO IVCON / [...] parenchymal volume loss. Additional findings as detailed. Tricot Knitter: KEYANA Transcribe Date/Time: Nov 15 2023 8:44P Dictated by : PATRICIA GARCÍA MD This examination was interpreted and the report reviewed and electronically signed by: PATRICIA GARCÍA MD on Nov 15 2023 8:46PM EST [id number] Normal [facility] Comprehensive metabolic 2000 panelon 11-15-2023 Albumin [Mass/Vol] 3.9 g/dL Normal 3.9-4.9 [facility] Comment on above: Order Comment: Lenard jesus Type: BLOOD SPECIMENOrdering Facility: [facility] Address: [address] [place] [address] Performed By: #### 2 4323-8, 3040-3, 03485-6, 45716-3, [id number] ####LINCOLN LABORATORYCLIA [id number] [place] [address] [place] ALP [Catalytic activity/Vol] 64 U/L Normal 34-123 [facility] Comment on above: Order Comment: Lenard jesus Type: BLOOD SPECIMENOrdering Facility: [facility] Address: [address] [place] [address] Performed By: #### 2 4323-8, 3040-3, 18071-5, 51825-9, [id number] ####LINCOLN LABORATORYCLIA [id number] [place] [id number] [place] ALT [Catalytic activity/Vol] 14 U/L Normal 7-38 [facility] Comment on above: Order Comment: Lenard jesus Type: BLOOD SPECIMENOrdering Facility: [facility] Address: [address] [place] [address] Performed By: #### 2 4323-8, 3040-3, 49618-4, 09190-8, [id number] ####LINCOLN LABORATORYCLIA [id number] [place] [id number] [place] Anion gap [Moles/Vol] 11 mmol/L Normal 8-15 [facility] Comment on above: Order Comment: Speci men Type: BLOOD SPECIMENOrdering Facility: [facility] Address: [address] [place] [address] Performed By: #### 2 4323-8, 3040-3, 35935-6, 72749-6, [id number] ####LINCOLN LABORATORYCLIA [id number] [place] [address] [place] AST [Catalytic activity/Vol] Normal [facility] Comment on above: Order Comment: Speci men Type: BLOOD SPECIMENOrdering Facility: [facility] Address: [address] [place] [address] Result Comment: Unab le to assay due to interference from hemolysis. Suggest reorder as clinically indicated. Performed By: #### 2 4323-8, 3040-3, 63265-8, 86182-2, [id number] ####LINCOLN LABORATORYCLIA [id number] [place] [address] [place] Bilirubin [Mass/Vol] 0.3 mg/dL Normal 0.2-1.3 [facility] Comment on above: Order Comment: Speci men Type: BLOOD SPECIMENOrdering Facility: [facility] Address: [address] [place] [address] Performed By: #### 2 4323-8, 3040-3, 38474-1, 20820-3, [id number] ####LINCOLN LABORATORYCLIA [id number] [place] [address] [place] Calcium [Mass/Vol] 9.5 mg/dL Normal 8.5-10.2 [facility] Comment on above: Order Comment: Speci men Type: BLOOD SPECIMENOrdering Facility: [facility] Address: [address] [place] [address] Performed By: #### 2 4323-8, 3040-3, 62447-6, 05929-0, [id number] ####LINCOLN LABORATORYCLIA [id number] [place] [address] [place] Chloride [Moles/Vol] 100 mmol/L Normal 98-107 [facility] Comment on above: Order Comment: Specejffy men Type: BLOOD SPECIMENOrdering Facility: [facility] Address: [address] [place] [address] Performed By: #### 2 4323-8, 3040-3, 33683-6, 56320-9, [id number] ####LINCOLN LABORATORYCLIA [id number] [place] [address] [place] CO2 [Moles/Vol] 28 mmol/L Normal 22-30 [facility] Comment on above: Order Comment: Speci men Type: BLOOD SPECIMENOrdering Facility: [facility] Address: [address] [place], [place] [address] Performed By: #### 2 4323-8, 3040-3, 57737-6, 56128-0, [id number] ####LINCOLN LABORATORYCLIA [id number] [place] [id number] [place] Creatinine [Mass/Vol] 1.94 mg/dL High 0.58-0.96 [facility] Comment on above: Order Comment: Speci men Type: BLOOD SPECIMENOrdering Facility: [facility] Address: [address] [place], [place] [address] Performed By: #### 2 4323-8, 3040-3, 15955-8, 19443-3, [id number] ####LINCOLN LABORATORYCLIA [id number] [place] [id number] [facility] Creatinine and Glomerular filtration rate.predicted panel (S/P/Bld) 26 mL/min/1.73m??? Low >=60 [facility] Comment on above: Order Comment: Spec men Type: BLOOD SPECIMENOrdering Facility: [facility] Address: [address] [place], [place] [address] Result Comment: Aaron mated Glomerular Filtration Rate [...] GFR. Performed By: #### 2 4323-8, 3040-3, 71054-3, 06521-9, [id number] ####KO LABORATORYCLIA [id number] [place] [address] [place] Glucose [Mass/Vol] 147 mg/dL High 74-99 [facility] Comment on above: Order Comment: Lenard jesus Type: BLOOD SPECIMENOrdering Facility: [facility] Address: [address] [place] [address] Result Comment: The [place] Diabetes Association (ADA) provides guidance for cutoff [...] Standards of Medical Care in Diabetes 2016, [place] Diabetes Association. Diabetes Care. 2016.39(Suppl 1). Performed By: #### 2 4323-8, 3040-3, 07317-9, 26111-2, [id number] ####KO LABORATORYCLIA [id number] [place] [id number] [place] Potassium [Moles/Vol] 4.5 mmol/L Normal 3.7-5.1 [facility] Comment on above: Order Comment: Lenard jesus Type: BLOOD SPECIMENOrdering Facility: [facility] Address: [address] [place] [address] Performed By: #### 2 4323-8, 3040-3, 14989-0, 78149-9, [id number] ####LINCOLN LABORATORYCLIA [id number] [place] [id number] [place] Protein [Mass/Vol] 7.5 g/dL Normal 6.3-8.0 [facility] Comment on above: Order Comment: Lenard jesus Type: BLOOD SPECIMENOrdering Facility: [facility] Address: [address] [place] [address] Performed By: #### 2 4323-8, 3040-3, 51948-5, 09844-0, [id number] ####KO LABORATORYCLIA [id number] [address] STATES [facility] Sodium [Moles/Vol] 139 mmol/L Normal 136-144 [facility] Comment on above: Order Comment: Speci men Type: BLOOD SPECIMENOrdering Facility: [facility] Address: [address] [place], [place] [address] Performed By: #### 2 4323-8, 3040-3, 58638-1, 90046-3, [id number] ####KO LABORATORYCLIA [id number] [address] Urea nitrogen [Mass/Vol] 50 mg/dL High 7-21 [facility] Comment on above: Order Comment: Speci men Type: BLOOD SPECIMENOrdering Facility: [facility] Address: [address] [place] [address] Performed By: #### 2 4323-8, 3040-3, 09330-5, 63320-7, [id number] ####LINCOLN LABORATORYCLIA [id number] [address] D dimer FEU PPP-mCncon 11-14 Fibrin D-dimer FEU (PPP) [Mass/Vol] 620 ng/mL FEU High <500 [facility] Comment on above: Order Comment: Speci men Type: BLOOD SPECIMENOrdering Facility: [facility] Address: [address] [place] [address] Performed By: #### 4 8065-7, 00029-6, 56046-5 ####LINCOLN LABORATORYCLIA [id number] [place] [id number] [facility] ED NOTEon 11-15-2023 ED NOTE HNO ID: [id number] Author: CHALO CHAIDEZ, CARO Service: ? Author Type: Registered Nurse Type: ED Notes Filed: 11/15/2023 22:21 Note Text: Verbal phone report was provided to Josette on . The pt remains stable for transport to the floor for admission. NAD noted at this time. Belongings list was completed. Medic to transport. [facility] ED NOTE HNO ID: [id number] Author: CHALO CHAIDEZ RN Service: ? Author Type: Registered Nurse Type: ED Notes Filed: 11/15/2023 22:07 Note Text: Heads up called to -[place] charge nurse (Spoke with Singh) [facility] ED PROV NOTEon 11-15-2023 ED PROV NOTE HNO ID: [id number] Author: ISIAH CHOI MD Service: Emergency Medicine [...] on chronic systolic CHF (congestive heart failure) ([facility]) 05/03/2020 Aspiration pneumonia ([facility]) 05/30/2020 Chest pain 05/03/2020 Chest pressure 01/23/2013 Chronic diastolic congestive heart failure (HCC) 02/14/2021 Clostridium difficile diarrhea 09/28/2020 Complete uterovaginal prolapse Cystocele, midline Essential hypertension 06/14/2020 Homozygous Factor V Leiden mutation ([facility]) 05/03/2020 Hypothyroidism IBS (irritable bowel syndrome) 01/23/2013 [...] rub. No gallop. (more content not included)... [facility] EKGon 11-15-2023 Electrocardiogram Ventricular Rate : 5 9 BPM Atrial Rate : 59 BPM P-R Interval : 114 ms QRS Duration : 122 ms Q-T Interval : 490 ms QTC Calculation(Bazett) : 485 ms Calculated P [place] : 27 degrees Calculated R [place] : -60 degrees Calculated T [place] : 78 degrees Atrial-sensed ventricular-paced rhythm ABNORMAL ECG When compared with selected ECG of 10-Jul-2023 07:12, ELECTRONIC VENTRICULAR PACEMAKER HAS REPLACED SINUS RHYTHM no STEMI Confirmed by MD CHOI EDWARD.S ([id number]) on 11/15/2023 7:34:54 PM NAME : SANDRA SCHMITZ PID : [id number] : 1945 Gender : Female Race : ORD : Procedure Date : Nov 15 2023 19:27:04 Edit Date : Nov 15 2023 19:34:59 Diagnosis: Atrial-sensed ventricular-paced rhythm ABNORMAL ECG When compared with selected ECG of 10-Jul-2023 07:12, ELECTRONIC VENTRICULAR PACEMAKER HAS REPLACED SINUS RHYTHM no STEMI Confirmed by MD CHOI EDWARD.S ([id number]) on 11/15/2023 7:34:54 PM Test Reason : Location : 1 : ER ED Overread By : MD CHOI EDWARD.S Edited By : MD CHOI EDWARD.Eileen Referred By : , Acquired by : WENCESLAO RN, [facility] FLUABV+SARS-CoV-2+RSV Pnl Re sp PRECIOUS+probeon 11-15-2023 FLUABV+SARS-CoV-2+RSV Pnl Resp PRECIOUS+probe COVID 19 RESULT: Not detected The method used is RT-PCR or an equivalent NAAT method. Reference Range(the expected result in uninfected individuals): Not detected INFLUENZA A PCR: Not detected INFLUENZA B PCR: Not detected RSV PCR: Not detected Normal [facility] Comment on above: Performed By: #### 9 5941-1 ####[facility] LABORATORYCLIA [id number] [place] [address] [place] Fibrin D-dimer FEU (PPP) [Ma ss/Vol]on 11-15-2023 D DIMER AGE-RELATED CUTOFF 770 ng/mL FEU Normal [facility] Comment on above: Order Comment: Lenard jesus Type: BLOOD SPECIMENOrdering Facility: [facility] Address: [address] [place] [address] Performed By: #### 4 8065-7, 13634-6, 69519-8 ####LINCOLN LABORATORYCLIA [id number] [address] [place] Gas and Carbon monoxide pane l (BldV)on 11-15-2023 Base excess Calc (BldV) [Moles/Vol] 2 mmol/L Normal 0-2 [facility] Comment on above: Order Comment: Lenard jesus Type: VENOUS BLOOD SPECIMENOrdering Facility: [facility] Address: [address] [place] [address] Performed By: #### 2 4344-4 ####[facility] RESPIRATORYCLIA [id number] [facility] [id number] [place] [address] Carboxyhemoglobin (BldV) [Mass fraction] <1.0 Normal 0.0-2.0 [facility] Comment on above: Order Comment: Lenard jesus Type: VENOUS BLOOD SPECIMENOrdering Facility: [facility] Address: [address] [place] [address] Result Comment: Carb oxyhemoglobin Reference Range for Smokers: 2.0-8.0% Performed By: #### 2 4344-4 ####[facility] RESPIRATORYCLIA [id number] [facility] [id number] [address] [address] CO2 (BldV) [Partial pressure] 46 mm[Hg] Normal 42-55 [facility] Comment on above: Order Comment: Speci men Type: VENOUS BLOOD SPECIMENOrdering Facility: [facility] Address: [address] [place] [address] Performed By: #### 2 4344-4 ####KO RESPIRATORYCLIA [id number] [facility] [id number] [address] [address] CO2 adjusted to patient's actual temperature (BldV) [Partial pressure] Normal [facility] Comment on above: Order Comment: Speci men Type: VENOUS BLOOD SPECIMENOrdering Facility: [facility] Address: [address] [place] [address] Performed By: #### 2 4344-4 ####[facility] [id number] [facility] [id number] [address] [address] HCO3 (Bld) [Moles/Vol] 27 mmol/L Normal 24-28 [facility] Comment on above: Order Comment: Speci men Type: VENOUS BLOOD SPECIMENOrdering Facility: [facility] Address: [address] [place] [address] Performed By: #### 2 4344-4 ####[facility] [id number] [facility]OS[facility] [id number] [address] [address] Hemoglobin (Bld) [Mass/Vol] 13.0 g/dL Normal 11.5-15.5 [facility] Comment on above: Order Comment: Speci men Type: VENOUS BLOOD SPECIMENOrdering Facility: [facility] Address: [address] [place] [address] Performed By: #### 2 4344-4 ####[facility]ORY[facility] [id number] [facility]OS[facility] [id number] [address] [address] Lactate [Moles/Vol] 1.6 mmol/L Normal 0.5-2.2 [facility] Comment on above: Order Comment: Speci men Type: VENOUS BLOOD SPECIMENOrdering Facility: [facility] Address: [address] [place] [address] Performed By: #### 2 4344-4 ####KO RESPIRATORYCLIA [id number] [facility] RES[facility]IRAT[facility] [id number] [address] [address] Methemoglobin (Bld) [Mass fraction] % Normal 0.0-1.5 [facility] Comment on above: Order Comment: Speci men Type: VENOUS BLOOD SPECIMENOrdering Facility: [facility] Address: [address] [place] [id number] Performed By: #### 2 4344-4 ####KO RESPIRATORYCLIA [id number] [facility]OS[facility] RESPIRATORY [id number] [address] [address] O2 THERAPY RA=Room Air [facility] Comment on above: Order Comment: Speci men Type: VENOUS BLOOD SPECIMENOrdering Facility: [facility] Address: [address] [place] [address] Performed By: #### 2 4344-4 ####LIN[facility]N RESPIRATORYIA [id number] [facility]OS[facility] RES[facility]IRAT[facility] [id number] [address] [address] Oxygen (BldV) [Partial pressure] 42 mm[Hg] Normal 35-45 [facility] Comment on above: Order Comment: Speci men Type: VENOUS BLOOD SPECIMENOrdering Facility: [facility] Address: [address] [place] [id number] Performed By: #### 2 4344-4 ####KO RESPIRATORYIA [id number] [facility]OS[facility] RESPIRATORY [id number] [address] [address] Oxygen adjusted to patient's actual temperature (BldV) [Partial pressure] Normal [facility] Comment on above: Order Comment: Speci men Type: VENOUS BLOOD SPECIMENOrdering Facility: [facility] Address: [address] [place] [address] Performed By: #### 2 4344-4 ####KO RESPIRATORYIA [id number] [facility]OSP[facility] RESPIRATORY [id number] [address] [address] Oxygen saturation in Venous blood 74 % Normal 60-85 [facility] Comment on above: Order Comment: Speci men Type: VENOUS BLOOD SPECIMENOrdering Facility: [facility] Address: [address] [place] [address] Performed By: #### 2 4344-4 ####KO RESPIRATORYCLIA [id number] [facility]OS[facility] RES[facility]IRATORY [id number] [address] [address] Oxyhemoglobin (BldV) [Mass fraction] 73 % Normal [facility] Comment on above: Order Comment: Speci men Type: VENOUS BLOOD SPECIMENOrdering Facility: [facility] Address: [address] [place] [address] Performed By: #### 2 4344-4 ####KO RESPIRATORYCLIA [id number] [facility] RES[facility] [id number] [address] [address] pH (BldV) 7.38 [pH] Normal 7.32-7.42 [facility] Comment on above: Order Comment: Speci men Type: VENOUS BLOOD SPECIMENOrdering Facility: [facility] Address: [address] [place] [address] Performed By: #### 2 4344-4 ####KO RESPIRATORYIA [id number] [facility]OS[facility] RESPIRATORY [id number] [address] [address] pH adjusted to patient's actual temperature (BldV) Normal [facility] Comment on above: Order Comment: Speci men Type: VENOUS BLOOD SPECIMENOrdering Facility: [facility] Address: [address] [place] [address] Performed By: #### 2 4344-4 ####KO RESPIRATORYCLIA [id number] [facility]IR[facility] [id number] [address] [address] Potassium [Moles/Vol] 3.8 mmol/L Normal 3.5-5.0 [facility] Comment on above: Order Comment: Speci men Type: VENOUS BLOOD SPECIMENOrdering Facility: [facility] Address: [address] [place] [address] Performed By: #### 2 4344-4 ####KO RESPIRATORYCLIA [id number] [facility] RES[facility]IRAT[facility] [id number] [address] [place] [address] HIGH SENSITIVITY TROPONIN T (INITIAL)on 11-15-2023 Troponin T.cardiac High sensitivity method [Mass/Vol] 31 ng/L High <12 [facility] Comment on above: Order Comment: Speci men Type: BLOOD SPECIMENOrdering Facility: [facility] Address: [address] [place] [address] Performed By: #### 2 4323-8, 3040-3, 50186-7, 01054-2, [id number] ####[facility] LABORATORYCLIA [id number] [address] HIGH SENSITIVITY TROPONIN T (SECOND)on 11-15-2023 Troponin T.cardiac High sensitivity method [Mass/Vol] 25 ng/L High <[address] [place] [address] Comment on above: Order Comment: Speci men Type: BLOOD SPECIMENOrdering Facility: [facility] Address: [address] [place] [address] Performed By: #### 3 3959-8, [id number] ####[facility] LABORATORYCLIA [id number] [address] HIGH SENSITIVITY TROPONIN T (THIRD) 3 HRS AFTER INITIALon 11-15-2023 Troponin T.cardiac High sensitivity method [Mass/Vol] 23 ng/L High <[address] [place] [address] Comment on above: Order Comment: Speci men Type: BLOOD SPECIMENOrdering Facility: [facility] Address: [address] [place] [address] Performed By: #### 3 016-3, [id number] ####LIN[facility]N LABORATORYCLIA [id number] [place] [id number] [place] HISTORY PHYSICALon HISTORY PHYSICAL HNO ID: [id number] Author: ADDI BRICE DO Service: Hospital Medicine Author Type: Physician Type: H&P Filed: 11/16/2023 00:14 Note Text: DEPARTMENT OF HOSPITAL MEDICINE HISTORY AND PHYSICAL EXAM SERVICE DATE: 11/16/2023 SERVICE TIME: 12:14 AM Primary Care Physician: Mandeep Houser DO NIGHT COVERAGE: Please page [facility] [place] [phone] for any issues or concerns Subjective CHIEF COMPLAINT: Syncope (Having abd cramps was sitting in the bathroom when started breaking out in a sweat and blacking out. ) HPI: This is a 78 year old female with PMH of non ischemic cardiomyopathy, HFrEF (2019, 07-12-23: EF 26%), s/p RN RENAL-D (July 20, 2023, [employer]), non occlusive CAD ([facility]: ), IBS, Factor V Leiden Syndrome, [...] 15.66 (*) Abs Neut 11.69 (*) Abs [place] 1.05 (*) Abs Immature Gran 0.25 (*) [...] laboratory APTT reagent in use throughout the [facility]. HIGH SENSITIVITY TROPONIN T (SECOND) - Abnormal; [...] URINALYSIS WI (more content not included)... Normal [facility] Lipase SerPl-cCncon 11-15-19 24 Lipase [Catalytic activity/Vol] 42 U/L Normal 16-61 [facility] Comment on above: Order Comment: Lenard jesus Type: BLOOD SPECIMENOrdering Facility: [facility] Address: [address] [place] [address] Performed By: #### 2 4323-8, 3040-3, 76640-5, 10187-9, [id number] ####[facility] LABORATORYCLIA [id number] [address] [place] Magnesium [facility]-ncon 11-14 Magnesium [Mass/Vol] 2.2 mg/dL Normal 1.7-2.3 [facility] Comment on above: Order Comment: Lenard jesus Type: BLOOD SPECIMENOrdering Facility: [facility] Address: [address] [place] [address] Performed By: #### 2 4323-8, 3040-3, 79272-0, 07077-6, [id number] ####[facility] LABORATORYCLIA [id number] [address] [place] [facility] Natriuretic peptide.B prohormone N-Terminal [Mass/Vol] 1221 pg/mL High <450 [facility] Comment on above: Order Comment: Lenard jesus Type: BLOOD SPECIMENOrdering Facility: [facility] Address: [address] [place] [address] Performed By: #### 2 4323-8, 3040-3, 95461-8, 77746-4, [id number] ####[facility] LABORATORYCLIA [id number] [address] [place] PT panel Coag (PPP)on 2023 INR Coag (PPP) [Relative time] 0.9 {INR} Normal 0.9-1.3 [facility] Comment on above: Order Comment: Lenard jesus Type: BLOOD SPECIMENOrdering Facility: [facility] Address: [address] [place] [address] Result Comment: Sarah min K Antagonist (VKA) Therapeutic Range: INR 2 to 3 (Target INR of 2.5) Note: For patients treated with VKA drugs, such as warfarin, the [employer] 2012 Guideline recommends [...] Chest 2012, 141:7S-47S Becca RA, et al. [facility] 2017, 70: 252-289 Performed By: #### 4 8065-7, 98456-3, 54876-1 ####[facility] LABORATORYCLIA [id number] [place] [address] [place] PT Coag (PPP) [Time] 10.2 s Normal 9.7-13.0 [facility] Comment on above: Order Comment: Lenard [facility] Type: BLOOD SPECIMENOrdering Facility: [facility] Address: [address] [place] [address] Performed By: #### 4 8065-7, 87960-3, 74678-5 ####LIN[facility] LABORATORYCLIA [id number] [place] [id number] [place] Procalcitonin SerPl-mCncon 0 11-15-2023 Procalcitonin [Mass/Vol] 0.07 ng/mL Normal <0.09 [facility] Comment on above: Order Comment: Lenard jesus Type: BLOOD SPECIMENOrdering Facility: [facility] Address: [address] [place] [address] Result Comment: For a guided interpretation of test results, please visit the Change in Procalcitonin Calculator, [email or web address]. Performed By: #### 3 3959-8, [id number] ####KO LABORATORYCLIA [id number] [address] TSH SerPl-aCncon 11-15-2023 TSH Qn 1.470 m[IU]/L Normal 0.270-4.200 [facility] Comment on above: Order Comment: Speci men Type: BLOOD SPECIMENOrdering Facility: [facility] Address: [address] [place] [address] Performed By: #### 3 016-3, [id number] ####KO LABORATORYCLIA [id number] [address] Urinalysis complete panel (U )on 11-15-2023 Bilirubin Ql (U) Negative Normal Negative [facility] Comment on above: Order Comment: Speci men Type: URINE SPECIMENOrdering Facility: [facility] Address: [address] [place] [address] Performed By: #### 2 4356-8 ####KO LABORATORYCLIA [id number] [address] Clarity (Unsp spec) Clear Normal Clear [facility] Comment on above: Order Comment: Speci men Type: URINE SPECIMENOrdering Facility: [facility] Address: [address] [place] [address] Performed By: #### 2 4356-8 ####KO LABORATORYCLIA [id number] [address] Color (U) Yellow Normal Yellow [facility] Comment on above: Order Comment: Speci men Type: URINE SPECIMENOrdering Facility: [facility] Address: [address] [place] [address] Performed By: #### 2 4356-8 ####KO LABORATORYCLIA [id number] [address] Epithelial cells LM.HPF (Urine sed) [#/Area] Few Normal [facility] Comment on above: Order Comment: Speci men Type: URINE SPECIMENOrdering Facility: [facility] Address: [address] [place] [address] Performed By: #### 2 4356-8 ####KO LABORATORYCLIA [id number] [address] Glucose Test strip (U) [Mass/Vol] Negative Normal Negative [facility] Comment on above: Order Comment: Speci men Type: URINE SPECIMENOrdering Facility: [facility] Address: [address] [place] [address] Performed By: #### 2 4356-8 ####KO LABORATORYCLIA [id number] [place] [address] [place] Hemoglobin Ql (U) Negative Normal Negative [facility] Comment on above: Order Comment: Speci men Type: URINE SPECIMENOrdering Facility: [facility] Address: [address] [place] [address] Performed By: #### 2 4356-8 ####KO LABORATORYCLIA [id number] [address] [place] Ketones Ql (U) Negative Normal Negative [facility] Comment on above: Order Comment: Speci men Type: URINE SPECIMENOrdering Facility: [facility] Address: [address] [place] [address] Performed By: #### 2 4356-8 ####KO LABORATORYCLIA [id number] [address] Leukocyte esterase Test strip Ql (U) Negative Normal Negative [facility] Comment on above: Order Comment: Speci men Type: URINE SPECIMENOrdering Facility: [facility] Address: [address] [place] [address] Performed By: #### 2 4356-8 ####KO LABORATORYCLIA [id number] [address] [place] Nitrite Ql (U) Negative Normal Negative [facility] Comment on above: Order Comment: Speci men Type: URINE SPECIMENOrdering Facility: [facility] Address: [address] [place] [address] Performed By: #### 2 4356-8 ####KO LABORATORYCLIA [id number] [address] pH (U) 6.0 [pH] Normal 5.0-8.0 [facility] Comment on above: Order Comment: Speci men Type: URINE SPECIMENOrdering Facility: [facility] Address: [address] [place] [address] Performed By: #### 2 4356-8 ####KO LABORATORYCLIA [id number] [address] [place] Protein (U) [Mass/Vol] Negative Normal Negative [facility] Comment on above: Order Comment: Speci men Type: URINE SPECIMENOrdering Facility: [facility] Address: [address] [place] [address] Performed By: #### 2 4356-8 ####LIN[facility] LABORATORYCLIA [id number] [address] [place] RBC LM.HPF (Urine sed) [#/Area] 0-3 /HPF Normal 0-3 /HPF [facility] Comment on above: Order Comment: Speci men Type: URINE SPECIMENOrdering Facility: [facility] Address: [address] [place] [address] Performed By: #### 2 4356-8 ####LIN[facility] LABORATORYCLIA [id number] [address] Specific gravity (U) [Rel density] 1.020 Normal 1.005-1.030 [facility] Comment on above: Order Comment: Speci men Type: URINE SPECIMENOrdering Facility: [facility] Address: [address] [place] [address] Performed By: #### 2 4356-8 ####KO LABORATORYCLIA [id number] [address] Urobilinogen Ql (U) 0.2 EU/dL Normal 0.2-1.0 EU/dL [facility] Comment on above: Order Comment: Speci men Type: URINE SPECIMENOrdering Facility: [facility] Address: [address] [place] [address] Performed By: #### 2 4356-8 ####KO LABORATORYCLIA [id number] [place] [address] [place] WBC LM.HPF (Urine sed) [#/Area] 0-5 /HPF Normal 0-5 /HPF [facility] Comment on above: Order Comment: Speci men Type: URINE SPECIMENOrdering Facility: [facility] Address: [address] [place] [address] Performed By: #### 2 4356-8 ####LINCOLN LABORATORYCLIA [id number] [place] [address] [place] XR CHEST 1V [...] osseous abnormality. IMPRESSION: No acute cardiopulmonary disease. Tricot Knitter: PSCMykel Transcribe Date/Time: Nov 15 2023 8:27P Dictated by : OLIVERIO NOLASCO MD This examination was interpreted and the report reviewed and electronically signed by: OLIVERIO NOLASCO MD on Nov 15 2023 8:31PM EST [id number] Normal [facility] aPTT PPPon 11-15-2023 aPTT Coag (PPP) [Time] 22.7 s Low 23.0-32.4 [facility] Comment on above: Order Comment: Speci men Type: BLOOD SPECIMENOrdering Facility: [facility] Address: [address] [place] [address] Performed By: #### 4 8065-7, 31908-8, 57546-9 ####LINCOLN LABORATORYCLIA [id number] [place] [address] [place] [address] BRAIN WO IVCONon 11-01-[address] BRAIN WO IVCON * * *Final Report* * * DATE OF EXAM: Nov 01 2023 3:05PM [facility] 0504 - CT BRAIN WO IVCON / [...] should be made on a neurological basis. Tricot Knitter: PSCB Transcribe Date/Time: Nov 01 2023 3:06P [...] should be made on a neurological basis. Tricot Knitter: KEYANA Transcribe Date/Time: Nov 01 2023 3:06P Dictated by : ERNESTO KLEIN MD This examination was interpreted and the report reviewed and electronically signed by: ERNESTO KLEIN MD on Nov 01 2023 3:11PM EST [facility] * * *Final Report* * * DATE OF EXAM: Nov 01 2023 3:05PM [facility] 0504 - CT BRAIN WO IVCON / [...] base and imaged soft tissues are unremarkable. [facility] Provider, [facility]/01/2023 * * *Final Report* * * DATE OF EXAM: Nov 01 2023 3:05PM [facility] 0504 - CT BRAIN WO IVCON / [...] should be made on a neurological basis. Tricot Knitter: KEYANA Transcribe Date/Time: Nov 01 2023 3:06P Dictated by : ERNESTO KLEIN MD This examination was interpreted and the report reviewed and electronically signed by: ERNESTO KLEIN MD on Nov 01 2023 3:11PM EST [facility] Radiology Study observation (narrative) [facility] CT Head WO contrastOrdered B y: [facility] Provider on 11-01-2023 [facility] CBC W Auto Differential pane l (Bld)on 10-31-2023 Basophils (Bld) [#/Vol] 0.13 10*3/uL High [facility] Basophils/100 WBC (Bld) 1.2 % [facility] Differential cell count method Nom (Bld) Auto [facility] Eosinophils (Bld) [#/Vol] 0.34 10*3/uL NINF [facility] Eosinophils/100 WBC (Bld) 3.1 % [facility] Erythrocyte distribution width (RBC) [Ratio] 13.5 % 11.5 - 15.0 % [facility] Hematocrit (Bld) [Volume fraction] 41.9 % 36.0 - 46.0 % [facility] Hemoglobin (Bld) [Mass/Vol] 13.0 g/dL 11.5 - 15.5 g/dL [facility] Immature granulocytes (Bld) [#/Vol] 0.07 10*3/uL [facility] Immature granulocytes/100 WBC (Bld) 0.6 % [facility] Interpretation and review of laboratory results Abnormal [facility] Lymphocytes (Bld) [#/Vol] 4.05 10*3/uL High [facility] Lymphocytes/100 WBC (Bld) 37.4 % [facility] MCH (RBC) [Entitic mass] 28.8 pg 26.0 - 34.0 pg [facility] MCHC (RBC) [Mass/Vol] 31.0 g/dL 30.5 - 36.0 g/dL [facility] MCV (RBC) [Entitic vol] 92.7 fL 80.0 - 100.0 fL [facility] Monocytes (Bld) [#/Vol] 0.99 10*3/uL High [facility] Monocytes/100 WBC (Bld) 9.1 % [facility] Neutrophils (Bld) [#/Vol] 5.24 10*3/uL [facility] Neutrophils/100 WBC (Bld) 48.6 % [facility] Nucleated RBC (Bld) [#/Vol] [facility] Nucleated RBC/100 WBC (Bld) [Ratio] 0.0 % /100 WBC [facility] Platelet mean volume (Bld) [Entitic vol] 10.4 fL 9.0 - 12.7 fL [facility] Platelets (Bld) [#/Vol] 326 10*3/uL [facility] RBC (Bld) [#/Vol] 4.52 10*6/uL 3.90 - 5.2 0 m/uL [facility] WBC (Bld) [#/Vol] 10.82 10*3/uL [facility] CBC W Auto Differential pane l (Bld)on 10-15-2023 Basophils (Bld) [#/Vol] 0.11 10*3/uL High NINF [facility] Basophils/100 WBC (Bld) 1.1 % [facility] Differential cell count method Nom (Bld) Auto [facility] Eosinophils (Bld) [#/Vol] 0.30 10*3/uL [facility] Eosinophils/100 WBC (Bld) 3.0 % [facility] Erythrocyte distribution width (RBC) [Ratio] 13.4 % 11.5 - 15.0 % [facility] Hematocrit (Bld) [Volume fraction] 40.6 % 36.0 - 46.0 % [facility] Hemoglobin (Bld) [Mass/Vol] 12.7 g/dL 11.5 - 15.5 g/dL [facility] Immature granulocytes (Bld) [#/Vol] 0.07 10*3/uL [facility] Immature granulocytes/100 WBC (Bld) 0.7 % [facility] Interpretation and review of laboratory results Abnormal [facility] Lymphocytes (Bld) [#/Vol] 3.14 10*3/uL [facility] Lymphocytes/100 WBC (Bld) 31.7 % [facility] MCH (RBC) [Entitic mass] 29.4 pg 26.0 - 34.0 pg [facility] MCHC (RBC) [Mass/Vol] 31.3 g/dL 30.5 - 36.0 g/dL [facility] MCV (RBC) [Entitic vol] 94.0 fL 80.0 - 100.0 fL [facility] Monocytes (Bld) [#/Vol] 0.72 10*3/uL [facility] Monocytes/100 WBC (Bld) 7.3 % [facility] Neutrophils (Bld) [#/Vol] 5.55 10*3/uL [facility] Neutrophils/100 WBC (Bld) 56.2 % [facility] Nucleated RBC (Bld) [#/Vol] [facility] Nucleated RBC/100 WBC (Bld) [Ratio] 0.0 % /100 WBC [facility] Platelet mean volume (Bld) [Entitic vol] 10.4 fL 9.0 - 12.7 fL [facility] Platelets (Bld) [#/Vol] 353 10*3/uL [facility] RBC (Bld) [#/Vol] 4.32 10*6/uL 3.90 - 5.2 0 m/uL [facility] WBC (Bld) [#/Vol] 9.89 10*3/uL [facility] ICD REMOTE CHECKon 4 AV Delay Adaptive Paced Minimum (ms) 130 ms [facility] AV Delay Adaptive Sensed Minimum (ms) 80 ms [facility] AV Delay Adaptive Status ENABLED [facility] Battery Voltage 3.09 V [facility] Luis LV Pacing Amplitude (volts) 1.0 V [facility] Luis LV Pacing Polarity BI [facility] Luis LV Pacing Pulse Width (ms) 0.4 ms [facility] Luis RA Pacing Amplitude (volts) 3.5 V [facility] Luis RA Pacing Polarity BI [facility] Luis RA Pacing Pulse Width (ms) 0.4 ms [facility] Luis RA Sensing Amplitude (mvolts) 0.3 mV [facility] Luis RA Sensing Blanking Period (ms) 150 ms [facility] Luis RA Sensing Polarity BI [facility] Luis RA Sensing Refractory Period (ms) Auto [facility] Luis RV Pacing Amplitude (volts) 3.5 V [facility] Luis RV Pacing Polarity BI [facility] Luis RV Pacing Pulse Width (ms) 0.4 ms [facility] Luis RV Sensing Amplitude (mvolts) 0.3 mV [facility] Luis RV Sensing Blanking Period (ms) 230 ms [facility] Luis RV Sensing Polarity BI [facility] Detection Configuration (Vent) 1 - Zone [facility] ICD AFIB DetectionStatus ENABLED [facility] ICD ATAF DetectionInterval ms 350 ms [facility] ICD ATAF DetectionStatus ENABLED [facility] ICD FastVT DetectionStatus DISABLED [facility] ICD-ADLRATE_BPM 95 {beats}/min [facility] ICD-AMS EPISODES 171 {beats}/min [facility] ICD-ATP Episodes (Vent) 0 [facility] ICD-ATRIALFIBRILLATION 0 Cl [facility] ICD-Device Mfg MDT [facility] ICD-LEADIMPEDANCEATRIA L 589 ohm [facility] ICD-Percent Pacing (Atrial) 0.07 % [facility] ICD-Percent Pacing (Vent) 6.67 % [facility] ICD-PMT Intervention Enabled [facility] ICD-PVC Intervention Enabled [facility] ICD-Rate Modulation Acceleration Reaction 30 s [facility] ICD-Rate Modulation Deceleration Exercise [facility] ICD-Rate Modulation [place] 3 [facility] ICD-Rate Modulation Threshold Low [facility] ICD-Shocks Aborted (Vent) 0 [facility] [id number] 0 [facility] ICD-SHOCKSABORTED 0 [facility] ICD-SHOCKSDELIVEREDVEN TRICULAR 0 [facility] ICD-Ventricular Fibrillation 0 [facility] ICD-VVDELAY_MS 0 ms [facility] Lead Impedance (LV) 437 ohm [facility] Lead Impedance (RV) 380 ohm [facility] Lead Impedance High Voltage 73 ohm [facility] Lead1 Mfg MDT [facility] Lead2 Mfg MDT [facility] Lead3 Mfg MDT [facility] Location LV [facility] Location RA [facility] Location RV [facility] Lower Rate (bpm) 45 {beats}/min [facility] LV PACING % 97.85 % [facility] Max Sensor Rate (bpm) 120 {beats}/min [facility] MDT_PROG_TACHY_ZONE_DE TECTIONS_STATUS ENABLED [facility] Model [id number] [place] XT HF Quad RN RENAL-D MRI [facility] Model 4798 Attain Stabilit y Quad MRI [facility] Model 5076 CapSureFix Novus [facility] Model 6935M Sprint Quattro Secure S [facility] Pacing Mode DDD [facility] Serial Number [id number] [facility] Serial Number [id number] [facility] Serial Number [id number] [facility] Serial Number [id number] [facility] Test Charge Energy 40.0 J [facility] Test Charge Time 0 s [facility] Therapy Status (Vent) Enabled [facility] Thresh LV Capture Amplitude (volts) 0.375 V [facility] Thresh LV Capture Duration (ms) 0.4 ms [facility] Thresh RA Capture Amplitude (volts) 0.375 V [facility] Thresh RA Capture Duration (ms) 0.4 ms [facility] Thresh RA Sensing Amplitude (mvolts) 5.0 mV [facility] Thresh RV Capture Amplitude (VOLTS) 0.625 V [facility] Thresh RV Capture Duration (MS) 0.4 ms [facility] Thresh RV Sensing Amplitude (MVOLTS) 24.5 mV [facility] Tracking Rate (bpm) 130 {beats}/min [facility] VF Zone Detection Interval 320 ms [facility] VF Zone Therapy Configuration 1 ATP(s) + 6 Shock(s) [facility] 09/28/2023 Formattin g of this note might [...] pacing <0.1%. total V pacing 97.9%. Adaptive RN RENAL shows BiV pacing 6.8%, LV only pacing 93.2%. FOLLOW UP: Continue 3 month remote transmissions and yearly in-clinic interrogations. Amy Louis RN NOTE TO PROVIDERS: CARD Flowsheets contain detailed device programming and testing data. Paceart/Interrogation PDF can be found under CARDIAC DATA AND REPORT, Scanned Documents section. [facility] No Panel Informationon 09-27 BLANK _ [facility] ICD-ATRIALTACHYCARDIA [address] [facility] ICD-Fast Ventricular Tachycardia 0 [facility] Implant Date 2023 [facility] 09-25-2023 TIMN Telephone (MEPRAD) ----- SANDRA SCHMITZ ([id number]) 1945 [place] Date Time Provider Department 09/25/23 THUY AGUIRRE During your visit today, we recorded the following information about you: Thuy Aguirre, MELI.PELLETIZER TENDER 09/25/2023 12:12 PM Signed Called and spoke [...] failure Dr. Wells 10/01 virtually. Thuy Aguirre APRN.PELLETIZER TENDER Allergies As of Date: 09/25/2023 Noted Allergy [...] spine, cervical (more content not included)... Normal [facility] XR Foot - left AP and Latera l and obliqueon 09-13-2023 IMPRESSION: No acute osseous abnormality Tricot Knitter: KEYANA Transcribe Date/Time: Sep 13 2023 11:53A Dictated by : KIRA MALONE MD This examination was interpreted and the report reviewed and electronically signed by: KIRA MALONE MD on Sep 13 2023 11:55AM [facility] DIVISION OF RADIOLOGY * * *Final Report* [...] erosions. IMPRESSION IMPRESSION: No acute osseous abnormality Tricot Knitter: PSCB Transcribe Date/Time: Sep 13 2023 11:53A Dictated by : KIRA MALONE MD This examination was interpreted and the report reviewed and electronically signed by: KIRA MALONE MD on Sep 13 2023 11:55AM EST [facility] Radiology Study observation (narrative) [facility] XR Foot - left AP and Latera l and obliqueOrdered By: Ccf Provider on 09-13-2023 [facility] CR - History AND Physicalon 08-29-2023 CR - History & Physical [facility] Cardiac Rehab [address] [place] [address] CR - History Physical MR#: [id number] Acct: [id number] Name: SANDRA SCHMITZ Rep #: [id number] : 1945 78 From: [place] KEYS, RVT [...] Negative Advanced Directives Advanced Directives Power of Aging Room Hand: Yes Living Will: Yes Advance Directives Information [...] Date Josh Britton MD CC: Signed Normal [facility] UA DIP, URINE (POC)on 2023 BILIRUBIN UA (POCT) Negative Negative [facility] CLARITY UA (POCT) Clear [facility] ([facility]) Yellow [facility] GLUCOSE UA (POCT) Negative Negative mg/dL [facility] Hemoglobin Ql (U) Negative Negative [facility] KETONE UA (POCT) Negative Negative mg/dL [facility] LEUKOCYTES UA (POCT) Negative Negative [facility] NITRITE UA (POCT) Negative Negative [facility] PH UA (POCT) 6.5 4.5 - 8.0 [facility] Protein Ql (U) Negative Negative mg/dL [facility] SPECIFIC GRAVITY UA (POCT) 1.010 1.005 - 1.030 [facility] UROBILINOGEN UA (POCT) 0.2 E.U./dL Jeanette l E.U./dL [facility] ICD CLINIC CHECKon 4 AV Delay Adaptive Paced Minimum (ms) 100 ms [facility] AV Delay Adaptive Sensed Minimum (ms) 80 ms [facility] AV Delay Adaptive Status ENABLED [facility] Battery Voltage 3.11 V [facility] Luis LV Pacing Amplitude (volts) 2.5 V [facility] Luis LV Pacing Polarity BI [facility] Luis LV Pacing Pulse Width (ms) 0.4 ms [facility] Luis RA Pacing Amplitude (volts) 3.5 V [facility] Luis RA Pacing Polarity BI [facility] Luis RA Pacing Pulse Width (ms) 0.4 ms [facility] Luis RA Sensing Amplitude (mvolts) 0.3 mV [facility] Luis RA Sensing Blanking Period (ms) 150 ms [facility] Luis RA Sensing Polarity BI [facility] Luis RA Sensing Refractory Period (ms) Auto [facility] Luis RV Pacing Amplitude (volts) 3.5 V [facility] Luis RV Pacing Polarity BI [facility] Luis RV Pacing Pulse Width (ms) 0.4 ms [facility] Luis RV Sensing Amplitude (mvolts) 0.3 mV [facility] Luis RV Sensing Blanking Period (ms) 230 ms [facility] Luis RV Sensing Polarity BI [facility] Detection Configuration (Vent) 1 - Zone [facility] ICD AFIB DetectionStatus ENABLED [facility] ICD ATAF DetectionInterval ms 350 ms [facility] ICD ATAF DetectionStatus ENABLED [facility] ICD FastVT DetectionStatus DISABLED [facility] ICD-ADLRATE_BPM 95 {beats}/min [facility] ICD-AMS EPISODES 171 {beats}/min [facility] ICD-ATP Episodes (Vent) 0 [facility] ICD-ATRIALFIBRILLATION 0 [facility] ICD-Device Mfg MDT [facility] ICD-LEADIMPEDANCEATRIA L 551 ohm [facility] ICD-Percent Pacing (Atrial) 0.09 % [facility] ICD-Percent Pacing (Vent) 4.41 % [facility] ICD-PMT Intervention Enabled [facility] ICD-PVC Intervention Enabled [facility] ICD-Rate Modulation Acceleration Reaction 30 s [facility] ICD-Rate Modulation Deceleration Exercise [facility] ICD-Rate Modulation [place] 3 [facility] ICD-Rate Modulation Threshold Low [facility] ICD-Rhythm Normal Sinus Rhythm [facility] ICD-Shocks Aborted (Vent) 0 [facility] [id number] 0 [facility] ICD-SHOCKSABORTED 0 [facility] ICD-SHOCKSDELIVEREDVEN TRICULAR 0 [facility] ICD-Ventricular Fibrillation 0 [facility] ICD-VVDELAY_MS 0 ms [facility] Lead Impedance (LV) 418 ohm [facility] Lead Impedance (RV) 361 ohm [facility] Lead Impedance High Voltage 61 ohm [facility] Lead1 Mfg MDT [facility] Lead2 Mfg MDT [facility] Lead3 Mfg MDT [facility] Location LV [facility] Location RA [facility] Location RV [facility] Lower Rate (bpm) 45 {beats}/min [facility] LV PACING % 98.08 % [facility] Max Sensor Rate (bpm) 120 {beats}/min [facility] MDT_PROG_TACHY_ZONE_DE TECTIONS_STATUS ENABLED [facility] Model [id number] [place] XT HF Quad RN RENAL-D MRI [facility] Model 4798 Attain Stabilit y Quad MRI SureIdan [facility] Model 5076 CapSureFix Novus [facility] Model 6935M Sprint Quattro Secure S [facility] Pacemaker Dependent? NO [facility] Pacing Mode DDD [facility] Serial Number [id number] [facility] Serial Number [id number] [facility] Serial Number [id number] [facility] Serial Number [id number] [facility] Test Charge Energy 40.0 J [facility] Test Charge Time 0 s [facility] Therapy Status (Vent) Enabled [facility] Thresh LV Capture Amplitude (volts) 0.75 V [facility] Thresh LV Capture Duration (ms) 0.40 ms [facility] Thresh RA Capture Amplitude (volts) 0.50 V [facility] Thresh RA Capture Duration (ms) 0.40 ms [facility] Thresh RA Sensing Amplitude (mvolts) 4.4 mV [facility] Thresh RV Capture Amplitude (VOLTS) 0.75 V [facility] Thresh RV Capture Duration (MS) 0.40 ms [facility] Thresh RV Sensing Amplitude (MVOLTS) 20.0 mV [facility] Tracking Rate (bpm) 130 {beats}/min [facility] VF Zone Detection Interval 320 ms [facility] VF Zone Therapy Configuration 1 ATP(s) + 6 Shock(s) [facility] No Panel Informationon 08-06 BLANK _ [facility] ICD-Fast Ventricular Tachycardia 0 [facility] Implant Date 2023 [facility] CBC W Auto Differential pane l (Bld)on 07-24-2023 Basophils (Bld) [#/Vol] 0.13 10*3/uL High <0.11 k/uL [facility] Basophils/100 WBC (Bld) 1.0 % [facility] Differential cell count method Nom (Bld) Auto [facility] Eosinophils (Bld) [#/Vol] 0.46 10*3/uL High <0.46 k/uL [facility] Eosinophils/100 WBC (Bld) 3.4 % [facility] Erythrocyte distribution width (RBC) [Ratio] 15.0 % 11.5 - 15.0 % [facility] Hematocrit (Bld) [Volume fraction] 40.8 % 36.0 - 46.0 % [facility] Hemoglobin (Bld) [Mass/Vol] 12.9 g/dL 11.5 - 15.5 g/dL [facility] Immature granulocytes (Bld) [#/Vol] 0.17 10*3/uL High <0.10 k/uL [facility] Immature granulocytes/100 WBC (Bld) 1.3 % [facility] Lymphocytes (Bld) [#/Vol] 3.09 10*3/uL 1.00 - 4.00 k/uL [facility] Lymphocytes/100 WBC (Bld) 23.0 % [facility] MCH (RBC) [Entitic mass] 29.9 pg 26.0 - 34.0 pg [facility] MCHC (RBC) [Mass/Vol] 31.6 g/dL 30.5 - 36.0 g/dL [facility] MCV (RBC) [Entitic vol] 94.7 fL 80.0 - 100.0 fL [facility] Monocytes (Bld) [#/Vol] 1.15 10*3/uL High <0.87 k/uL [facility] Monocytes/100 WBC (Bld) 8.6 % [facility] Neutrophils (Bld) [#/Vol] 8.45 10*3/uL High 1.45 - 7.50 k/uL [facility] Neutrophils/100 WBC (Bld) 62.7 % [facility] Nucleated RBC (Bld) [#/Vol] <0.01 k/uL [facility] Nucleated RBC/100 WBC (Bld) [Ratio] 0.0 /100 WBC [facility] Platelet mean volume (Bld) [Entitic vol] 10.8 fL 9.0 - 12.7 fL [facility] Platelets (Bld) [#/Vol] 230 10*3/uL 150 - 400 k/uL [facility] RBC (Bld) [#/Vol] 4.31 10*6/uL 3.90 - 5.2 0 m/uL [facility] WBC (Bld) [#/Vol] 13.45 10*3/uL High 3.70 - 11.00 k/uL [facility] Comprehensive metabolic 2000 panelon 07-24-2023 Albumin [Mass/Vol] 4.1 g/dL 3.9 - 4.9 g/dL [facility] ALP [Catalytic activity/Vol] 66 U/L 34 - 123 U/L [facility] ALT [Catalytic activity/Vol] 11 U/L 7 - 38 U/L [facility] Anion gap [Moles/Vol] 12 mmol/L 9 - 18 mmol/L [facility] AST [Catalytic activity/Vol] 19 U/L 13 - 35 U/L [facility] Bilirubin [Mass/Vol] 0.4 mg/dL 0.2 - 1 .3 mg/dL [facility] Calcium [Mass/Vol] 9.9 mg/dL 8.5 - 10. 2 mg/dL [facility] Chloride [Moles/Vol] 103 mmol/L 97 - 10 5 mmol/L [facility] CO2 [Moles/Vol] 26 mmol/L 22 - 30 mmol/L [facility] Creatinine [Mass/Vol] 1.08 mg/dL High 0.58 - 0.96 mg/dL [facility] Estimated Glomerular Filtration Rate 53 mL/min/1.73m Low >=60 mL/min/1.73 m [facility] Glucose [Mass/Vol] 89 mg/dL 74 - 99 mg/dL [facility] Potassium [Moles/Vol] 4.5 mmol/L 3.7 - 5.1 mmol/L [facility] Protein [Mass/Vol] 7.5 g/dL 6.3 - 8.0 g/dL [facility] Sodium [Moles/Vol] 141 mmol/L 136 - 144 mmol/L [facility] Urea nitrogen [Mass/Vol] 32 mg/dL High 7 - 21 mg/dL [facility] T3 FREE BLDon 07-24-2023 Free T3 [Mass/Vol] 2.0 pg/mL Low 2.3 - 4.1 pg/mL [facility] T4 FREE/FREE THYROXon 2023 Free T4 [Mass/Vol] 1.5 ng/dL 0.9 - 1.7 ng/dL [facility] TSH BLDon 07-24-2023 TSH Qn 2.430 m[IU]/L 0.270 - 4.200 mIU/L [facility] VITAMIN B12 BLOODon 07-24-19 Cobalamin (Vitamin B12) [Mass/Vol] 520 pg/mL 232 - 1,245 pg/mL [facility] CBC W Auto Differential pane l (Bld)on 07-18-2023 Basophils (Bld) [#/Vol] 0.10 10*3/uL Normal <0.11 [facility] Comment on above: Order Comment: Speci men Type: BLOOD SPECIMENOrdering Facility: [facility] Address: [address] [place] [address] Performed By: #### 5 7021-8 ####[facility] LABORATORYCLIA [id number] [place] [address] [place] Basophils/100 WBC (Bld) 1.1 % Normal [facility] Comment on above: Order Comment: Speci men Type: BLOOD SPECIMENOrdering Facility: [facility] Address: [address] [place] [address] Performed By: #### 5 7021-8 ####[facility] LABORATORYCLIA [id number] [place] [id number] [place] Differential cell count method Nom (Bld) Auto Normal [facility] Comment on above: Order Comment: Speci men Type: BLOOD SPECIMENOrdering Facility: [facility] Address: [address] [place] [address] Performed By: #### 5 7021-8 ####[facility] LABORATORYCLIA [id number] [place] [id number] [place] Eosinophils (Bld) [#/Vol] 0.20 10*3/uL Normal <0.46 [facility] Comment on above: Order Comment: Speci men Type: BLOOD SPECIMENOrdering Facility: [facility] Address: [address] [place] [address] Performed By: #### 5 7021-8 ####[facility] LABORATORYCLIA [id number] [place] [id number] [place] Eosinophils/100 WBC (Bld) 2.1 % Normal [facility] Comment on above: Order Comment: Speci men Type: BLOOD SPECIMENOrdering Facility: [facility] Address: [address] [place] [address] Performed By: #### 5 7021-8 ####[facility] LABORATORYCLIA [id number] [place] [address] [place] Erythrocyte distribution width (RBC) [Ratio] 15.1 % High 11.5-15.0 [facility] Comment on above: Order Comment: Speci men Type: BLOOD SPECIMENOrdering Facility: [facility] Address: [address] [place] [address] Performed By: #### 5 7021-8 ####[facility] LABORATORYCLIA [id number] [place] [address] [place] Hematocrit (Bld) [Volume fraction] 36.1 % Normal 36.0-46.0 [facility] Comment on above: Order Comment: Speci men Type: BLOOD SPECIMENOrdering Facility: [facility] Address: [address] [place] [address] Performed By: #### 5 7021-8 ####[facility]EN[facility] LABORATORYCLIA [id number] [place] [id number] [place] Hemoglobin (Bld) [Mass/Vol] 11.7 g/dL Normal 11.5-15.5 [facility] Comment on above: Order Comment: Speci men Type: BLOOD SPECIMENOrdering Facility: [facility] Address: [address] [place] [address] Performed By: #### 5 7021-8 ####[facility] LABORATORYCLIA [id number] [place] [address] [place] Immature granulocytes (Bld) [#/Vol] 0.05 10*3/uL Normal <0.10 [facility] Comment on above: Order Comment: Speci men Type: BLOOD SPECIMENOrdering Facility: [facility] Address: [address] [place] [address] Performed By: #### 5 7021-8 ####[facility] LABORATORYCLIA [id number] [place] [address] [place] Immature granulocytes/100 WBC (Bld) 0.5 % Normal [facility] Comment on above: Order Comment: Speci men Type: BLOOD SPECIMENOrdering Facility: [facility] Address: [address] [place] [address] Performed By: #### 5 7021-8 ####[facility] LABORATORYCLIA [id number] [place] [address] [place] Lymphocytes (Bld) [#/Vol] 3.38 10*3/uL Normal 1.00-4.00 [facility] Comment on above: Order Comment: Speci men Type: BLOOD SPECIMENOrdering Facility: [facility] Address: [address] [place] [address] Performed By: #### 5 7021-8 ####[facility] LABORATORYCLIA [id number] [address] [place] Lymphocytes/100 WBC (Bld) 36.1 % Normal [facility] Comment on above: Order Comment: Speci men Type: BLOOD SPECIMENOrdering Facility: [facility] Address: [address] [place] [address] Performed By: #### 5 7021-8 ####[facility] LABORATORYCLIA [id number] [place] [address] [place] MCH (RBC) [Entitic mass] 30.0 pg Normal 26.0-34.0 [facility] Comment on above: Order Comment: Speci men Type: BLOOD SPECIMENOrdering Facility: [facility] Address: [address] [place] [address] Performed By: #### 5 7021-8 ####[facility] LABORATORYCLIA [id number] [place] [id number] [place] MCHC (RBC) [Mass/Vol] 32.4 g/dL Normal 30.5-36.0 [facility] Comment on above: Order Comment: Speci men Type: BLOOD SPECIMENOrdering Facility: [facility] Address: [address] [place] [address] Performed By: #### 5 7021-8 ####[facility] LABORATORYCLIA [id number] [place] [id number] [place] MCV (RBC) [Entitic vol] 92.6 fL Normal 80.0-100.0 [facility] Comment on above: Order Comment: Speci men Type: BLOOD SPECIMENOrdering Facility: [facility] Address: [address] [place] [address] Performed By: #### 5 7021-8 ####[facility] LABORATORYCLIA [id number] [place] [address] [place] Monocytes (Bld) [#/Vol] 0.81 10*3/uL Normal <0.87 [facility] Comment on above: Order Comment: Speci men Type: BLOOD SPECIMENOrdering Facility: [facility] Address: [address] [place] [address] Performed By: #### 5 7021-8 ####[facility] LABORATORYCLIA [id number] [place] [id number] [place] Monocytes/100 WBC (Bld) 8.6 % Normal [facility] Comment on above: Order Comment: Speci men Type: BLOOD SPECIMENOrdering Facility: [facility] Address: [address] [place] [address] Performed By: #### 5 7021-8 ####[facility] LABORATORYCLIA [id number] [place] [id number] [place] Neutrophils (Bld) [#/Vol] 4.83 10*3/uL Normal 1.45-7.50 [facility] Comment on above: Order Comment: Speci men Type: BLOOD SPECIMENOrdering Facility: [facility] Address: [address] [place] [address] Performed By: #### 5 7021-8 ####[facility] LABORATORYCLIA [id number] [place] [id number] [place] Neutrophils/100 WBC (Bld) 51.6 % Normal [facility] Comment on above: Order Comment: Speci men Type: BLOOD SPECIMENOrdering Facility: [facility] Address: [address] [place] [address] Performed By: #### 5 7021-8 ####[facility] LABORATORYCLIA [id number] [place] [address] [place] Nucleated RBC (Bld) [#/Vol] 10*3/uL Normal <0.01 [facility] Comment on above: Order Comment: Speci men Type: BLOOD SPECIMENOrdering Facility: [facility] Address: [address] [place] [address] Performed By: #### 5 7021-8 ####[facility] LABORATORYCLIA [id number] [place] [address] [place] Nucleated RBC/100 WBC (Bld) [Ratio] 0.0 /100 WBC Normal [facility] Comment on above: Order Comment: Speci men Type: BLOOD SPECIMENOrdering Facility: [facility] Address: [address] [place] [address] Performed By: #### 5 7021-8 ####[facility] LABORATORYCLIA [id number] [place] [id number] [place] Platelet mean volume (Bld) [Entitic vol] 10.2 fL Normal 9.0-12.7 [facility] Comment on above: Order Comment: Speci men Type: BLOOD SPECIMENOrdering Facility: [facility] Address: [address] [place] [address] Performed By: #### 5 7021-8 ####[facility] LABORATORYCLIA [id number] [place] [id number] [place] Platelets (Bld) [#/Vol] 205 10*3/uL Normal 150-400 [facility] Comment on above: Order Comment: Speci men Type: BLOOD SPECIMENOrdering Facility: [facility] Address: [address] [place], [place] [address] Performed By: #### 5 7021-8 ####[facility] LABORATORYCLIA [id number] [place] [id number] [facility] RBC (Bld) [#/Vol] 3.90 10*6/uL Normal 3.90-5.20 [facility] Comment on above: Order Comment: Speci men Type: BLOOD SPECIMENOrdering Facility: [facility] Address: [address] [place] [address] Performed By: #### 5 7021-8 ####[facility] LABORATORYCLIA [id number] [place] [id number] [facility] WBC (Bld) [#/Vol] 9.37 10*3/uL Normal 3.70-11.00 [facility] Comment on above: Order Comment: Speci men Type: BLOOD SPECIMENOrdering Facility: [facility] Address: [address] [place] [address] Performed By: #### 5 7021-8 ####[facility] LABORATORYCLIA [id number] [place] [id number] [facility] CNDSon 07-18-2023 CNDS HNO ID: [id number] Author: ANGELICA SILVA MD Service: Hospital Medicine [...] (HCC) (POA: Yes) 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 OPERATIONS/PROCEDURE DURING THIS HOSPITALIZATION: Procedure(s) (LRB): INSERTION PERM IMPLANTABLE DEFIBRILLATOR SYSTEM, W/TRANSVENOUS LEAD(S) (N/A) INSERTION CORONARY SINUS/LT VENTRICULAR LEAD W/INITIAL INSERTION OF PACEMAKER/DEFIB GENERATOR (N/A) CONSULTS DURING HOSPITALIZATION: Treatment Team: Attending Provider: Angelica Silva MD Primary Service: , [facility] Consulting: Pili Wells MD Orders Placed This [...] to ausc (more content not included)... Normal [facility] Comprehensive metabolic 2000 panelon 07-18-2023 Albumin [Mass/Vol] 3.5 g/dL Low 3.9-4.9 [facility] Comment on above: Order Comment: Speci men Type: BLOOD SPECIMEN Ordering Facility: [facility] Address: [address] [place] [address] Performed By: #### 2 4321-2, 01854-6 #### [facility] CLIA [id number] [place] [address] [place] ALP [Catalytic activity/Vol] 52 U/L Normal 34-123 [facility] Comment on above: Order Comment: Speci men Type: BLOOD SPECIMEN Ordering Facility: [facility] Address: [address] [place] [address] Performed By: #### 2 4320-2, #### [facility] CLIA [id number] [address] [place] [address] [place] ALT [Catalytic activity/Vol] 18 U/L Normal 7-38 [facility] Comment on above: Order Comment: Speci men Type: BLOOD SPECIMEN Ordering Facility: [facility] Address: [address] [place] [address] Performed By: #### 2 2, #### [facility] CLIA [id number] [address] [place] [address] [place] Anion gap [Moles/Vol] 8 mmol/L Low 9-18 [facility] Comment on above: Order Comment: Speci men Type: BLOOD SPECIMEN Ordering Facility: [facility] Address: [address] [place] [address] Performed By: #### 2 4320-2, #### [facility] CLIA [id number] [address] [place] [address] [place] AST [Catalytic activity/Vol] 18 U/L Normal 13-35 [facility] Comment on above: Order Comment: Speci men Type: BLOOD SPECIMEN Ordering Facility: [facility] Address: [address] [place] [address] Performed By: #### 2 2, #### [facility] CLIA [id number] [address] [place] [address] [place] Bilirubin [Mass/Vol] 0.4 mg/dL Normal 0.2-1.3 [facility] Comment on above: Order Comment: Speci men Type: BLOOD SPECIMEN Ordering Facility: [facility] Address: [address] [place] [address] Performed By: #### 2 432-2, #### [facility] CLIA [id number] [address] [place] [address] [place] Calcium [Mass/Vol] 8.8 mg/dL Normal 8.5-10.2 [facility] Comment on above: Order Comment: Speci men Type: BLOOD SPECIMEN Ordering Facility: [facility] Address: [address] [place] [address] Performed By: #### 2 4321-2, #### [facility] CLIA [id number] [address] [place] [address] [place] Chloride [Moles/Vol] 105 mmol/L Normal 97-105 [facility] Comment on above: Order Comment: Speci men Type: BLOOD SPECIMEN Ordering Facility: [facility] Address: [address] [place] [address] Performed By: #### 2 4321-2, #### [facility] CLIA [id number] [address] [place] [address] [place] CO2 [Moles/Vol] 27 mmol/L Normal 22-30 [facility] Comment on above: Order Comment: Speci men Type: BLOOD SPECIMEN Ordering Facility: [facility] Address: [address] [place] [address] Performed By: #### 2 4321-2, #### [facility] CLIA [id number] [address] [place] [address] [place] Creatinine [Mass/Vol] 1.10 mg/dL High 0.58-0.96 [facility] Comment on above: Order Comment: Speci men Type: BLOOD SPECIMEN Ordering Facility: [facility] Address: [address] [place] [address] Performed By: #### 2 4321-2, #### [facility] CLIA [id number] [address] [place] [address] [place] Creatinine and Glomerular filtration rate.predicted panel (S/P/Bld) 52 mL/min/1.73m??? Low >=60 [facility] Comment on above: Order Comment: Speci men Type: BLOOD SPECIMEN Ordering Facility: [facility] Address: [address] [place] [address] Result Comment: Aaron mated Glomerular Filtration Rate [...] By: #### 2 432-, #### [facility] CLIA [id number] [place] [address] [place] Glucose [Mass/Vol] 95 mg/dL Normal 74-99 [facility] Comment on above: Order Comment: Lenard jesus Type: BLOOD SPECIMEN Ordering Facility: [facility] Address: [address] [place] [address] Result Comment: The [place] Diabetes Association (ADA) provides guidance for cutoff [...] Standards of Medical Care in Diabetes 2016, [place] Diabetes [employer]. Diabetes Care. 2016.39(Suppl 1). Performed By: #### 2 4320-06, #### [facility] CLIA [id number] [place] [address] [place] Potassium [Moles/Vol] 4.0 mmol/L Normal 3.7-5.1 [facility] Comment on above: Order Comment: Lenard jesus Type: BLOOD SPECIMEN Ordering Facility: [facility] Address: [address] [place] [address] Performed By: #### 2 432-, #### [facility] CLIA [id number] [place] [address] [place] Protein [Mass/Vol] 6.2 g/dL Low 6.3-8.0 [facility] Comment on above: Order Comment: Speci men Type: BLOOD SPECIMEN Ordering Facility: [facility] Address: [address] [place] [address] Performed By: #### 2 4321-2, #### [facility] CLIA [id number] [address] [place] [address] [place] Sodium [Moles/Vol] 140 mmol/L Normal 136-144 [facility] Comment on above: Order Comment: Speci men Type: BLOOD SPECIMEN Ordering Facility: [facility] Address: [address] [place] [address] Performed By: #### 2 4321-2, #### [facility] CLIA [id number] [address] [place] [address] [place] Urea nitrogen [Mass/Vol] 36 mg/dL High 7-21 [facility] Comment on above: Order Comment: Speci men Type: BLOOD SPECIMEN Ordering Facility: [facility] Address: [address] [place] [address] Performed By: #### 2 4321-2, #### [facility] CLIA [id number] [address] [place] [address] [place] Magnesium SerPl-mCncon 07-17 Magnesium [Mass/Vol] 2.3 mg/dL Normal 1.7-2.3 [facility] Comment on above: Order Comment: Speci men Type: BLOOD SPECIMEN Ordering Facility: [facility] Address: [address] [place] [address] Performed By: #### 5 8410-2 #### [facility] CLIA [id number] [address] [place] [address] [place] NURSING PROGon 07-18-2023 NURSING PROG HNO ID: [id number] Author: CHON RAMSEY RN Service: Nursing Author [...] daughter is here to take her home. [facility] ALLIED HEALTHon 07-17-2023 ALLIED HEALTH HNO ID: [id number] Author: ANAND AMIN RT(R) Service: ? Author [...] PATIENT PRESENTS WITH AN IMPLANTABLE OR ATTACHED FIELD TECHNICAL ASSISTANT: No RADIOLOGY DEPARTMENT: General X-ray: Exam(s) Completed: Chest X-Ray PERIPHERAL IV DATA: Not applicable SIGNED BY: RT Cindy(R) July 17, 2023 10:02 AM [facility] ANES POSTPROC EVALon 024 ANES POSTPROC EVAL HNO ID: [id number] Author: GRISELDA SALMERON MD Service: Anesthesiology Author [...] of care. Anesthesia Observations No Documentation SIGNATURE: Griselad Salmeron MD PATIENT NAME: Sandra Schmitz DATE: July 17, 2023 TIME: 7:14 AM CSN: [id number] Normal [facility] Basic metabolic 2000 panelon 07-17-2023 Anion gap [Moles/Vol] 9 mmol/L Normal 9-18 [facility] Comment on above: Order Comment: Speci edin Type: BLOOD SPECIMEN Ordering Facility: [facility] Address: [address] [place] [address] Performed By: #### 2 4321-2 #### [facility] CLIA [id number] [address] [place] [address] [place] Calcium [Mass/Vol] 9.0 mg/dL Normal 8.5-10.2 [facility] Comment on above: Order Comment: Lenard jesus Type: BLOOD SPECIMEN Ordering Facility: [facility] Address: [address] [place] [address] Performed By: #### 2 4321-2 #### [facility] CLIA [id number] [address] [place] [address] [place] Chloride [Moles/Vol] 103 mmol/L Normal 97-105 [facility] Comment on above: Order Comment: Speci men Type: BLOOD SPECIMEN Ordering Facility: [facility] Address: [address] [place] [address] Performed By: #### 2 4321-2 #### [facility] CLIA [id number] [address] [place] [address] [place] CO2 [Moles/Vol] 26 mmol/L Normal 22-30 [facility] Comment on above: Order Comment: Speci men Type: BLOOD SPECIMEN Ordering Facility: [facility] Address: [address] [place] [address] Performed By: #### 2 4321-2 #### [facility] CLIA [id number] [address] [place] [address] Creatinine [Mass/Vol] 0.98 mg/dL High 0.58-0.96 [facility] Comment on above: Order Comment: Speci men Type: BLOOD SPECIMEN Ordering Facility: [facility] Address: [address] [place] [address] Performed By: #### 2 4321-2 #### [facility] CLIA [id number] [address] [place] [address] Creatinine and Glomerular filtration rate.predicted panel (S/P/Bld) 60 mL/min/1.73m??? Normal >=60 [facility] Comment on above: Order Comment: Speci men Type: BLOOD SPECIMEN Ordering Facility: [facility] Address: [address] [place] [address] Result Comment: Aaron mated Glomerular Filtration Rate [...] GFR. Performed By: #### 2 4321-2 #### [facility] CLIA [id number] [address] [place] [address] [place] Glucose [Mass/Vol] 120 mg/dL High 74-99 [facility] Comment on above: Order Comment: Lenard jesus Type: BLOOD SPECIMEN Ordering Facility: [facility] Address: [address] [place] [address] Result Comment: The [place] Diabetes Association (ADA) provides guidance for cutoff [...] Standards of Medical Care in Diabetes 2016, [place] Diabetes [employer]. Diabetes Care. 2016.39(Suppl 1). Performed By: #### 2 4321-2 #### [facility] CLIA [id number] [address] [place] [address] [place] Potassium [Moles/Vol] 4.6 mmol/L Normal 3.7-5.1 [facility] Comment on above: Order Comment: Lenard jesus Type: BLOOD SPECIMEN Ordering Facility: [facility] Address: [address] [place] [address] Performed By: #### 2 4321-2 #### [facility] CLIA [id number] [address] [place] [address] [place] Sodium [Moles/Vol] 138 mmol/L Normal 136-144 [facility] Comment on above: Order Comment: Ernestinei men Type: BLOOD SPECIMEN Ordering Facility: [facility] Address: [address] [place] [address] Performed By: #### 2 4321-2 #### [facility] CLIA [id number] [address] [place] [address] [place] Urea nitrogen [Mass/Vol] 33 mg/dL High 7-21 [facility] Comment on above: Order Comment: Ernestinei men Type: BLOOD SPECIMEN Ordering Facility: [facility] Address: [address] [place] [address] Performed By: #### 2 4321-2 #### [facility] CLIA [id number] [address] [place] [address] [place] CBC panel Auto (Bld)on 07-16 Erythrocyte distribution width (RBC) [Ratio] 14.6 % Normal 11.5-15.0 [facility] Comment on above: Order Comment: Speci men Type: BLOOD SPECIMEN Ordering Facility: [facility] Address: [address] [place] [address] Performed By: #### 5 8410-2 #### [facility] CLIA [id number] [address] [place] [address] [place] Hematocrit (Bld) [Volume fraction] 38.8 % Normal 36.0-46.0 [facility] Comment on above: Order Comment: Speci men Type: BLOOD SPECIMEN Ordering Facility: [facility] Address: [address] [place] [address] Performed By: #### 5 8410-2 #### [facility] CLIA [id number] [address] [place] [address] [place] Hemoglobin (Bld) [Mass/Vol] 12.8 g/dL Normal 11.5-15.5 [facility] Comment on above: Order Comment: Speci men Type: BLOOD SPECIMEN Ordering Facility: [facility] Address: [address] [place] [address] Performed By: #### 5 8410-2 #### [facility] CLIA [id number] [address] [place] [address] [place] MCH (RBC) [Entitic mass] 29.8 pg Normal 26.0-34.0 [facility] Comment on above: Order Comment: Speci men Type: BLOOD SPECIMEN Ordering Facility: [facility] Address: [address] [place] [address] Performed By: #### 5 8410-2 #### [facility] CLIA [id number] [address] [place] [address] [place] MCHC (RBC) [Mass/Vol] 33.0 g/dL Normal 30.5-36.0 [facility] Comment on above: Order Comment: Speci men Type: BLOOD SPECIMEN Ordering Facility: [facility] Address: [address] [place] [address] Performed By: #### 5 8410-2 #### [facility] CLIA [id number] [address] [place] [address] [place] MCV (RBC) [Entitic vol] 90.4 fL Normal 80.0-100.0 [facility] Comment on above: Order Comment: Speci men Type: BLOOD SPECIMEN Ordering Facility: [facility] Address: [address] [place] [address] Performed By: #### 5 8410-2 #### [facility] CLIA [id number] [address] [place] [address] [place] Nucleated RBC (Bld) [#/Vol] 10*3/uL Normal <0.01 [facility] Comment on above: Order Comment: Speci men Type: BLOOD SPECIMEN Ordering Facility: [facility] Address: [address] [place] [address] Performed By: #### 5 8410-2 #### [facility] CLIA [id number] [address] [place] [address] [place] Platelet mean volume (Bld) [Entitic vol] 9.9 fL Normal 9.0-12.7 [facility] Comment on above: Order Comment: Speci men Type: BLOOD SPECIMEN Ordering Facility: [facility] Address: [address] [place] [address] Performed By: #### 5 8410-2 #### [facility] CLIA [id number] [address] [place] [address] [place] Platelets (Bld) [#/Vol] 266 10*3/uL Normal 150-400 [facility] Comment on above: Order Comment: Speci men Type: BLOOD SPECIMEN Ordering Facility: [facility] Address: [address] [place] [address] Performed By: #### 5 8410-2 #### [facility] CLIA [id number] [place] [address] [place] RBC (Bld) [#/Vol] 4.29 10*6/uL Normal 3.90-5.20 [facility] Comment on above: Order Comment: Speci men Type: BLOOD SPECIMEN Ordering Facility: [facility] Address: [address] [place] [address] Performed By: #### 5 8410-2 #### [facility] CLIA [id number] [place] [address] [place] WBC (Bld) [#/Vol] 11.00 10*3/uL Normal 3.70-11.00 [facility] Comment on above: Order Comment: Speci men Type: BLOOD SPECIMEN Ordering Facility: [facility] Address: [address] [place] [address] Performed By: #### 5 8410-2 #### [facility] CLIA [id number] OF [facility] CNPNon 07-17-2023 CNPN Telephone (FVPRAD) ----- SANDRA SCHMITZ ([id number]) [address] [facility]* Date Time Provider Department 07/17/23 MORENITA HILL FVFILIBERTO During your visit today, we recorded the following information about you: Morenita Hill APRN.PELLETIZER TENDER 07/17/2023 11:05 AM Signed Please call patient to arrange for appointment with EP ROSEMARY or Dr. Wellington with device check immediately prior at [facility] office. If we could coordinate this for same day she is seeing Dr. Wells, that would be great, in the next ~2 weeks. Thank you! Morenita Hill APRN.PELLETIZER TENDER Allergies As of Date: 07/17/2023 Noted Allergy [...] right [M19.071] 08/02/2022 Coronary artery disease involving paimiut lopez*08/02/2022 Vitamin D deficiency [E55.9] 08/02/2022 Somatic [...] respiratory failure (more content not included)... Normal [facility] CONSULT PROGon 07-17-2023 CONSULT PROG HNO ID: [id number] Author: MORENITA HILL APRN.PELLETIZER TENDER Service: Electrophysiology Author Type: Nurse Practitioner Type: Consult Progress Note Filed: 07/17/2023 11:02 Note Text: [facility]ARDI[facility]ULAR [facility]ICINE PROGRESS NOTE PRIMARY SERVICE: 5, Fv HOSPITAL DAY: # 4 INTERVAL HISTORY POD #1 s/p MDT RN RENAL-D for primary prevention in the setting of [...] Chronic, non-ischemic HFrEF with LBBB s/p MDT RN RENAL-D POD #1 s/p MDT RN RENAL-D, reports feeling fatigued, but overall feeling well. [...] week follow up with EP ROSEMARY at [facility] office with device check prior. Patient may be discharged from EP perspective. Case to be discussed with staff, Dr. Muro. Morenita Hill APRN.PELLETIZER TENDER July 17, 2023 10:55 AM EP Pager: [phone] Normal [facility] CONSULT PROG HNO ID: [id number] Author: PILI WELLS MD Service: Cardiovascular Medicine [...] (H) 4.3 - 5.6 % Final Comment: [place] Diabetes Association guidelines indicate that patients with [...] On low doses of GDMT LBBB: s/p RN RENAL-D 07/16/23 Non-obstructive CAD: stable, ischemic testing recently with no ischemia or infarction. PLAN/RECOMMENDATIONS: GDMT: continue low dose entresto, start toprol XL 12.5mg today. Start PO lasix 20mg daily. Benedict (more content not included)... Normal [facility] ECG COMPLETEon 07-17-2023 ECG COMPLETE Ventricular Rate : 5 4 BPM Atrial Rate : 53 BPM P-R Interval : 133 ms QRS Duration : 133 ms Q-T Interval : 464 ms QTC Calculation(Bazett) : 440 ms Calculated P [place] : 13 degrees Calculated R [place] : -66 degrees Calculated T [place] : 19 degrees Atrial-sensed ventricular-paced complexes Abnormal ECG Confirmed by ROSALIA WARNER MD ([id number]) on 08/23/2023 1:01:26 PM NAME : SANDRA SCHMITZ PID : [id number] : 1945 Gender : Female Race : ORD : [id number] Procedure Date : Jul 17 2023 08:44:51 Edit Date : Aug 23 2023 13:01:29 Diagnosis: Atrial-sensed ventricular-paced complexes Abnormal ECG Confirmed by ROSALIA WARNER MD ([id number]) on 08/23/2023 1:01:26 PM Test Reason : Post-OP Location : [address] : [address] Overread By : ROSALIA WARNER MD Edited By : ROSALIA WARNER MD Referred By : REMINGTON CAI Acquired by : WILFREDO THOMPSON [facility] NURSING PROGon 07-17-2023 NURSING PROG HNO ID: [id number] Author: CHON RAMSEY, RN Service: Nursing Author [...] MD Shira. Hold lasix 20mg Discharge cancelled. [facility] THERAPY NTon 07-17-2023 THERAPY NT HNO ID: [id number] Author: ZORAN HILL, PT, DPT Service: Physical Therapy Author Type: Physical Therapist Type: Therapy (PT/OT/Speech/Resp) Filed: 07/17/2023 09:00 Note Text: Physical Therapy Treatment Summary SERVICE DATE: 07/17/2023 SERVICE TIME: 08 to 0844 ROOM: [place] [address] PT 6 Clicks Score: 22 DISCHARGE RECOMMENDATIONS [...] CURRENT HOSPITAL COURSE Pt initially admitted to [facility] for acute on chronic HFrEF. She was stabilized with IV diuresis however course complicated by hypotension and bradycardia. 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 Normal [facility] Vancomycin [place] SerPl-mCncon 07-17-2023 Vancomycin random [Mass/Vol] 9.8 ug/mL Low 10.0-20.0 [facility] Comment on above: Order Comment: Speci men Type: BLOOD SPECIMEN Ordering Facility: [facility] Address: [address] [place] [id number] Result Comment: Refe rence ranges and high/low indicator flags are provided as general guidelines only. The treating physician must determine appropriate target levels/dosing based on the specific clinical situation. Performed By: #### 4 091-5 #### [facility] CLIA [id number] [place] [address] [place] XR CHEST 2V [...] Unremarkable. IMPRESSION: Cardiomegaly. No acute process seen Tricot Knitter: KEYANA Transcribe Date/Time: Jul 17 2023 10:35A Dictated by : FABIAN BRODERICK MD This examination was interpreted and the report reviewed and electronically signed by: FABIAN BRODERICK MD on Jul 17 2023 10:35AM EST [id number] [facility] ANES PRE-OPon 2023 ANES PRE-OP HNO ID: [id number] Author: GRISELDA SALMERON MD Service: Anesthesiology Author [...] failure (HCC) (+) 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 (+) LBBB (left [...] and consent discussed: yes. Patient / Responsible Libertarian agrees to proceed: yes Patient / Surrogate [...] July 15 (more content not included)... Normal [facility] Basic metabolic 2000 panelon 2023 Anion gap [Moles/Vol] 17 mmol/L Normal 9-18 [facility] Comment on above: Order Comment: Speci men Type: BLOOD SPECIMEN Ordering Facility: [facility] Address: [address] [place] [address] Performed By: #### 2 4321-2, #### [facility] CLIA [id number] [address] [place] [address] [place] Calcium [Mass/Vol] 9.1 mg/dL Normal 8.5-10.2 [facility] Comment on above: Order Comment: Speci men Type: BLOOD SPECIMEN Ordering Facility: [facility] Address: [address] [place] [address] Performed By: #### 2 4320-2, #### [facility] CLIA [id number] [address] [place] [address] [place] Chloride [Moles/Vol] 105 mmol/L Normal 97-105 [facility] Comment on above: Order Comment: Speci men Type: BLOOD SPECIMEN Ordering Facility: [facility] Address: [address] [place] [address] Performed By: #### 2 2, #### [facility] CLIA [id number] [address] [place] [address] [place] CO2 [Moles/Vol] 21 mmol/L Low 22-30 [facility] Comment on above: Order Comment: Speci men Type: BLOOD SPECIMEN Ordering Facility: [facility] Address: [address] [place] [address] Performed By: #### 2 2, #### [facility] CLIA [id number] [address] [place] [address] [place] Creatinine [Mass/Vol] 1.04 mg/dL High 0.58-0.96 [facility] Comment on above: Order Comment: Speci men Type: BLOOD SPECIMEN Ordering Facility: [facility] Address: [address] [place] [address] Performed By: #### 2 2, #### [facility] CLIA [id number] [address] [place] [address] [place] Creatinine and Glomerular filtration rate.predicted panel (S/P/Bld) 56 mL/min/1.73m??? Low >=60 [facility] Comment on above: Order Comment: Speci men Type: BLOOD SPECIMEN Ordering Facility: [facility] Address: [address] [place] [address] Result Comment: Aaron mated Glomerular Filtration Rate [...] GFR. Performed By: #### 2 4320-, #### [facility] CLIA [id number] [place] [address] [place] Glucose [Mass/Vol] 94 mg/dL Normal 74-99 [facility] Comment on above: Order Comment: Lenard jesus Type: BLOOD SPECIMEN Ordering Facility: [facility] Address: [address] [place] [address] Result Comment: The [place] Diabetes Association (ADA) provides guidance for cutoff [...] Standards of Medical Care in Diabetes 2016, [place] Diabetes Association. Diabetes Care. 2016.39(Suppl 1). Performed By: #### 2 4320-06, #### [facility] CLIA [id number] [address] [place] [address] [place] Potassium [Moles/Vol] 4.0 mmol/L Normal 3.7-5.1 [facility] Comment on above: Order Comment: Lenard jesus Type: BLOOD SPECIMEN Ordering Facility: [facility] Address: [address] [place] [address] Performed By: #### 2 4320-, #### [facility] CLIA [id number] [address] [place] [address] [place] Sodium [Moles/Vol] 143 mmol/L Normal 136-144 [facility] Comment on above: Order Comment: Speci men Type: BLOOD SPECIMEN Ordering Facility: [facility] Address: [address] [place] [address] Performed By: #### 2 4321-2, #### [facility] CLIA [id number] [address] [place] [id number] [place] Urea nitrogen [Mass/Vol] 39 mg/dL High 7-21 [facility] Comment on above: Order Comment: Speci men Type: BLOOD SPECIMEN Ordering Facility: [facility] Address: [address] [place] [address] Performed By: #### 2 4321-2, #### [facility] CLIA [id number] OF [facility] CASE MGT INIT ASSESon 2023 CASE MGT INIT ASSES HNO ID: [id number] Author: ESTELA BRIONES RN Service: ? Author [...] Current Advance Directive: Health Care Power of Aging Room Hand;Living Will In Chart: No Current Living Arrangements [...] None Discharge Planning Patient Goal(s): General wellness [place] of Choice Explained: [place] of Choice Given: No Are you interested [...] Discharge Plan: Pt getting pacemaker. 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 Dtr Julia lives with her. SIGNATURE: Estela Briones RN PATIENT NAME: Sandra Schmitz DATE: 2023 TIME: 12:24 PM CONTACT #: [phone] [facility] CONSULTon 2023 CONSULT HNO ID: [id number] Author: PILI WELLS MD Service: Cardiovascular Medicine [...] no ischemia or infarction. PLAN/RECOMMENDATIONS: Agree with RN RENAL, planning for today. Can likely transition to PO lasix 40mg daily starting tomorrow. GDMT: continue low dose entresto, post RN RENAL placement can add toprol XL 12.5mg daily. Re-evaluate tomorrow post RN RENAL for additional medications if possible. 2L fluid [...] or [place]. [place] [phone]; [place] [phone] Pili Wells MD Advanced Heart Failure and Transplant Milieu Therapist [facility] [place] [address] Appointment: [phone] ----- --- SERVICE DATE: 2023 SERVICE TIME: 10:00AM CONSULTING PHYSICIAN: pili wells PCP: Mandeep Houser DO ATTENDING: Angelica Silva MD REASON FOR CONSULT: Heart Failure CHIEF COMPLAINT: Bradycardia [R00.1] HISTORY OF PRESENT ILLNESS: Ms. Schmitz is a 77 year old female who presents for decompensated HF and EP eval for RN RENAL. Sandra Schmitz has a pmhx of non-ischemic CM, HTN, Hypothyroidism, LBBB, non-obstructive CAD who is transferred to for decompensated HF and EP eval for RN RENAL. Ns, Nadir reports that she has been [...] the hospital. On arrival to [facility] she was volume up, hypotensive. She was [...] on chronic systolic CHF (congestive heart failure) ([facility]) 05/03/2020 Aspiration pneumonia ([facility]) 05/30/2020 Chest pain 05/03/2020 Chest pressure 01/23/2013 Chronic diastolic congestive heart failure ([facility]) 02/14/2021 Clostridium difficile diarrhea 09/28/2020 Complete uterovaginal prolapse Cystocele, midline Essential hypertension 06/14/2020 Homozygous Factor V Leiden mutation ([facility]) 05/03/2020 Hypothyroidism IBS (irritable bowel syndrome) 01/23/2013 [...] Disease Father (more content not included)... Normal [facility] Magnesium SerPl-mCncon 07-15 Magnesium [Mass/Vol] 2.2 mg/dL Normal 1.7-2.3 [facility] Comment on above: Order Comment: Speci men Type: BLOOD SPECIMEN Ordering Facility: [facility] Address: [address] [place] [address] Performed By: #### 2 4321-2, 91333-4 #### [facility] CLIA [id number] [place] NURSING PROGon 2023 NURSING PROG HNO ID: [id number] Author: ELEONORA ALVARADO RN Service: Nursing Author [...] note was completed by: Eleonora Alvarado Normal [facility] NURSING PROG HNO ID: [id number] Author: CHON RAMSEY RN Service: Nursing Author Type: Registered Nurse Type: Nursing Progress Note Filed: 2023 08:57 Note Text: Daily note: 0800: per MD Shira hold pt morning dose of IV lasix. Aware subq heparin held for procedure. Normal [facility] CBC panel Auto (Bld)on 07-14 Erythrocyte distribution width (RBC) [Ratio] 14.7 % Normal 11.5-15.0 [facility] Comment on above: Order Comment: Speci men Type: BLOOD SPECIMENOrdering Facility: [facility] Address: [facility] [place] [address] Performed By: #### 5 8410-2 ####[facility]CLIA [id number] [address] [place] Hematocrit (Bld) [Volume fraction] 38.7 % Normal 36.0-46.0 [facility] Comment on above: Order Comment: Speci men Type: BLOOD SPECIMENOrdering Facility: [facility] Address: [address] [place] [address] Performed By: #### 5 8410-2 ####[facility] [id number] [address] [place] Hemoglobin (Bld) [Mass/Vol] 12.7 g/dL Normal 11.5-15.5 [facility] Comment on above: Order Comment: Speci men Type: BLOOD SPECIMENOrdering Facility: [facility] Address: [address] [place] [address] Performed By: #### 5 8410-2 ####[facility] [id number] [address] [place] MCH (RBC) [Entitic mass] 29.7 pg Normal 26.0-34.0 [facility] Comment on above: Order Comment: Speci men Type: BLOOD SPECIMENOrdering Facility: [facility] Address: [address] [place] [address] Performed By: #### 5 8410-2 ####[facility]ORYCLIA [id number] [address] STATES [facility] MCHC (RBC) [Mass/Vol] 32.8 g/dL Normal 30.5-36.0 [facility] Comment on above: Order Comment: Speci men Type: BLOOD SPECIMENOrdering Facility: [facility] Address: [address] [place] [address] Performed By: #### 5 8410-2 ####[facility] [id number] [address] [place] MCV (RBC) [Entitic vol] 90.6 fL Normal 80.0-100.0 [facility] Comment on above: Order Comment: Speci men Type: BLOOD SPECIMENOrdering Facility: [facility] Address: [address] [place] [address] Performed By: #### 5 8410-2 ####[facility] [id number] [place] [address] [place] Nucleated RBC (Bld) [#/Vol] 10*3/uL Normal <0.01 [facility] Comment on above: Order Comment: Speci men Type: BLOOD SPECIMENOrdering Facility: [facility] Address: [address] [place] [address] Performed By: #### 5 8410-2 ####[facility]ORYCLIA [id number] [place] [id number] [place] Platelet mean volume (Bld) [Entitic vol] 10.2 fL Normal 9.0-12.7 [facility] Comment on above: Order Comment: Speci men Type: BLOOD SPECIMENOrdering Facility: [facility] Address: [address] [place] [address] Performed By: #### 5 8410-2 ####[facility]ORYCLIA [id number] [place] [address] [place] Platelets (Bld) [#/Vol] 280 10*3/uL Normal 150-400 [facility] Comment on above: Order Comment: Speci men Type: BLOOD SPECIMENOrdering Facility: [facility] Address: [address] [place] [address] Performed By: #### 5 8410-2 ####[facility]ATORYCLIA [id number] [place] [address] [place] RBC (Bld) [#/Vol] 4.27 10*6/uL Normal 3.90-5.20 [facility] Comment on above: Order Comment: Speci men Type: BLOOD SPECIMENOrdering Facility: [facility] Address: [address] [place] [address] Performed By: #### 5 8410-2 ####[facility]ATORYCLIA [id number] [place] [id number] [place] WBC (Bld) [#/Vol] 7.64 10*3/uL Normal 3.70-11.00 [facility] Comment on above: Order Comment: Speci men Type: BLOOD SPECIMENOrdering Facility: [facility] Address: [address] [place] [address] Performed By: #### 5 8410-2 ####[facility] [id number] [place] [address] [place] Comprehensive metabolic 2000 panelon 07-15-2023 Albumin [Mass/Vol] 3.7 g/dL Low 3.9-4.9 [facility] Comment on above: Order Comment: Speci men Type: BLOOD SPECIMEN Ordering Facility: [facility] Address: [address] [place] [address] Performed By: #### 1 9123-9, 84335-7 #### [facility] CLIA [id number] [address] [place] [address] [place] ALP [Catalytic activity/Vol] 51 U/L Normal 34-123 [facility] Comment on above: Order Comment: Speci men Type: BLOOD SPECIMEN Ordering Facility: [facility] Address: [address] [place] [address] Performed By: #### 1 9123-9, 54033-5 #### [facility] CLIA [id number] [address] [place] [address] [place] ALT [Catalytic activity/Vol] Normal [facility] Comment on above: Order Comment: Speci men Type: BLOOD SPECIMEN Ordering Facility: [facility] Address: [address] [place] [address] Result Comment: Unab le to assay due to interference from hemolysis. Suggest reorder as clinically indicated. Performed By: #### 1 9123-9, 98119-1 #### [facility] CLIA [id number] [address] [place] [address] [place] Anion gap [Moles/Vol] 13 mmol/L Normal 9-18 [facility] Comment on above: Order Comment: Speci men Type: BLOOD SPECIMEN Ordering Facility: [facility] Address: [address] [place] [address] Performed By: #### 1 9123-9, 04019-4 #### [facility] CLIA [id number] [address] [place] [address] [place] AST [Catalytic activity/Vol] Normal [facility] Comment on above: Order Comment: Speci men Type: BLOOD SPECIMEN Ordering Facility: [facility] Address: [address] [place] [address] Result Comment: Unab le to assay due to interference from hemolysis. Suggest reorder as clinically indicated. Performed By: #### 1 23-9, #### [facility] CLIA [id number] [address] [place] [address] [place] Bilirubin [Mass/Vol] 0.7 mg/dL Normal 0.2-1.3 [facility] Comment on above: Order Comment: Speci men Type: BLOOD SPECIMEN Ordering Facility: [facility] Address: [address] [place] [address] Performed By: #### 1 9123-01, #### [facility] CLIA [id number] [address] [place] [address] [place] Calcium [Mass/Vol] 9.1 mg/dL Normal 8.5-10.2 [facility] Comment on above: Order Comment: Speci men Type: BLOOD SPECIMEN Ordering Facility: [facility] Address: [address] [place] [address] Performed By: #### 1 239, #### [facility] CLIA [id number] [address] [place] [address] [place] Chloride [Moles/Vol] 103 mmol/L Normal 97-105 [facility] Comment on above: Order Comment: Speci men Type: BLOOD SPECIMEN Ordering Facility: [facility] Address: [address] [place] [address] Performed By: #### 1 9123-01, #### [facility] CLIA [id number] [address] [place] [address] [place] CO2 [Moles/Vol] 25 mmol/L Normal 22-30 [facility] Comment on above: Order Comment: Speci men Type: BLOOD SPECIMEN Ordering Facility: [facility] Address: [address] [place] [address] Performed By: #### 1 239, 05585-2 #### [facility] CLIA [id number] [address] [place] [address] [place] Creatinine [Mass/Vol] 0.99 mg/dL High 0.58-0.96 [facility] Comment on above: Order Comment: Lenard jesus Type: BLOOD SPECIMEN Ordering Facility: [facility] Address: [address] [place] [address] Performed By: #### 1 9123-9, 36697-6 #### [facility] CLIA [id number] [address] [place] [address] [place] Creatinine and Glomerular filtration rate.predicted panel (S/P/Bld) 59 mL/min/1.73m??? Low >=60 [facility] Comment on above: Order Comment: Lenard jesus Type: BLOOD SPECIMEN Ordering Facility: [facility] Address: [address] [place] [address] Result Comment: Aaron mated Glomerular Filtration Rate [...] actual GFR. Performed By: #### 1 9123-9, 24433-2 #### [facility] CLIA [id number] [address] [place] [address] [place] Glucose [Mass/Vol] 95 mg/dL Normal 74-99 [facility] Comment on above: Order Comment: Lenard jesus Type: BLOOD SPECIMEN Ordering Facility: [facility] Address: [address] [place] [address] Result Comment: The [place] Diabetes Association (ADA) provides guidance for cutoff [...] Standards of Medical Care in Diabetes 2016, [place] Diabetes [employer]. Diabetes Care. 2016.39(Suppl 1). Performed By: #### 1 9122-9, 24840-1 #### [facility] CLIA [id number] [address] [place] [address] [place] Potassium [Moles/Vol] 3.8 mmol/L Normal 3.7-5.1 [facility] [facility] Comment on above: Order Comment: Speci men Type: BLOOD SPECIMEN Ordering Facility: [facility] Address: [address] [place] [address] Performed By: #### 1 9123-01, 17054-4 #### [facility] CLIA [id number] [address] [place] [address] [place] Protein [Mass/Vol] 6.6 g/dL Normal 6.3-8.0 [facility] Comment on above: Order Comment: Speci men Type: BLOOD SPECIMEN Ordering Facility: [facility] Address: [address] [place] [address] Performed By: #### 1 9123-01, 36452-5 #### [facility] CLIA [id number] [address] [place] [address] [place] Sodium [Moles/Vol] 141 mmol/L Normal 136-144 [facility] Comment on above: Order Comment: Speci men Type: BLOOD SPECIMEN Ordering Facility: [facility] Address: [address] [place] [address] Performed By: #### 1 9123-01, 30501-2 #### [facility] CLIA [id number] [address] [place] [address] [place] Urea nitrogen [Mass/Vol] 38 mg/dL High 7-21 [facility] Comment on above: Order Comment: Speci men Type: BLOOD SPECIMEN Ordering Facility: [facility] Address: [address] [place] [address] Performed By: #### 1 9123-01, 41462-0 #### [facility] CLIA [id number] [address] [place] [address] [place] Magnesium SerPl-mCncon 07-14 Magnesium [Mass/Vol] 2.2 mg/dL Normal 1.7-2.3 [facility] Comment on above: Order Comment: Speci men Type: BLOOD SPECIMEN Ordering Facility: [facility] Address: [address] [place] [address] Performed By: #### 1 9123-9, 30871-8 #### [facility] CLIA [id number] [place] NURSING PROGon 07-15-2023 NURSING PROG HNO ID: [id number] Author: DARIUS GUERRA RN Service: PICC Team [...] 15, 2023 TIME: 11:25 AM PAGER/CONTACT #: [phone] [facility] NURSING PROG HNO ID: [id number] Author: FLORENTINO REBOLLEDO RN Service: ? Author [...] I/O. call mckeon in reach. 1500 Cardiology PELLETIZER TENDER in to see pt regarding plan of care. ICD to be placed tomorrow. NPO after midnight tonight except medications. questions and concerns addressed. call mckeon in reach. 1600 Monitor remains SR 90's. VSS. afebrile. denies dizziness or cp. independent in room with steady gait. I/O. Assessment unchanged from above. call mckeon in reach. Normal [facility] THERAPY NTon 07-15-2023 THERAPY NT HNO ID: [id number] Author: DANIELLE JACOBS OT/L Service: Occupational Therapy Author Type: Occupational Therapist Type: Therapy (PT/OT/Speech/Resp) Filed: 07/15/2023 12:15 Note Text: Occupational Therapy Evaluation Summary SERVICE DATE: 07/15/2023 SERVICE TIME: 1006 to 1029 ROOM: [place] [address] OT 6 Clicks Score: 24 DISCHARGE RECOMMENDATIONS [...] CURRENT HOSPITAL COURSE Pt initially admitted to [facility] for acute on chronic HFrEF. She was stabilized with IV diuresis however course complicated by hypotension and bradycardia. 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 week) [...] No Skilled Need TREATMENT INTERVENTIONS Evaluation, Self Nursing Home Management (90749) Timed Code Treatment (minutes): 8 Skilled Treatment Time (minutes): 23 TRAINING AND EDUCATION PROVIDED Assistive Device Use, Benefits of In-Hospital Mobility, Discharge Planning, Disease Specific Education, Energy Conservation, Expected Functional Level, Functional Mobility Involving ADLs, Grooming Tasks, Lower Extremity Dressing, Role of Occupational Therapy, Standing Balance to Improve [place] with ADLs/Self-Care, Toileting , Transfer - Sit [...] DATE: July 15, 2023 TIME: 12:15 PM [facility] THERAPY NT HNO ID: [id number] Author: ZORAN HILL, PT, DPT Service: Physical Therapy Author Type: Physical Therapist Type: Therapy (PT/OT/Speech/Resp) Filed: 07/15/2023 09:14 Note Text: Physical Therapy Evaluation Summary SERVICE DATE: 07/15/2023 SERVICE TIME: 830 to 853 ROOM: [place] [address] PT 6 Clicks Score: 23 DISCHARGE RECOMMENDATIONS [...] CURRENT HOSPITAL COURSE ON RNF, RA, upcoming RN RENAL device implant this admission Relevant Past Medical History: HFrEF, LBBB, hypothyroidism, multiple abdominal surgerise including cholecystectomy. HOME LIVING Patient Lives With: Family Assistance Available: Part-Time (Daughter works days, may be able to machine shop worker for pt first week after d/c [...] Weakness (generalized) TREATMENT INTERVENTIONS Evaluation, Gait Training (10537) Timed Code Treatment (minutes): 8 Skilled Treatment [...] July 15, 2023 TIME: 9:11 AM Normal [facility] Basic metabolic 2000 panelon 07-14-2023 Anion gap [Moles/Vol] 11 mmol/L Normal 9-18 [facility] Comment on above: Order Comment: Speci men Type: BLOOD SPECIMENOrdering Facility: [facility] Address: [address] [place] [address] Performed By: #### 2 4321-2, 03087-8 ####[facility]ATORYCLIA [id number] [place] [address] [place] Calcium [Mass/Vol] 9.2 mg/dL Normal 8.5-10.2 [facility] Comment on above: Order Comment: Speci men Type: BLOOD SPECIMENOrdering Facility: [facility] Address: [address] [place] [address] Performed By: #### 2 4321-2, ####[facility] LABORATORYCLIA [id number] [place] [id number] [place] Chloride [Moles/Vol] 104 mmol/L Normal 97-105 [facility] Comment on above: Order Comment: Speci men Type: BLOOD SPECIMENOrdering Facility: [facility] Address: [address] [place] [address] Performed By: #### 2 4321-2, ####[facility] LABORATORYCLIA [id number] [place] [address] [place] CO2 [Moles/Vol] 27 mmol/L Normal 22-30 [facility] Comment on above: Order Comment: Speci men Type: BLOOD SPECIMENOrdering Facility: [facility] Address: [address] [place] [address] Performed By: #### 2 4321-2, ####[facility]ORYCLIA [id number] [place] [address] [place] Creatinine [Mass/Vol] 0.84 mg/dL Normal 0.58-0.96 [facility] Comment on above: Order Comment: Speci men Type: BLOOD SPECIMENOrdering Facility: [facility] Address: [address] [place] [address] Performed By: #### 2 4321-2, ####[facility] LABORATORYCLIA [id number] [place] [id number] [place] Creatinine and Glomerular filtration rate.predicted panel (S/P/Bld) 72 mL/min/1.73m??? Normal >=60 [facility] Comment on above: Order Comment: Speci men Type: BLOOD SPECIMENOrdering Facility: [facility] Address: [address] [place] [address] Result Comment: Aaron mated Glomerular Filtration Rate [...] Performed By: #### 2 432-, ####[facility]ORYCLIA [id number] [place] [id number] [place] Glucose [Mass/Vol] 138 mg/dL High 74-99 [facility] Comment on above: Order Comment: Lenard jesus Type: BLOOD SPECIMENOrdering Facility: [facility] Address: [address] [place] [address] Result Comment: The [place] Diabetes Association (ADA) provides guidance for cutoff [...] Standards of Medical Care in Diabetes 2016, [place] Diabetes Association. Diabetes Care. 2016.39(Suppl 1). Performed By: #### 2 4320-06, ####[facility]ORYCLIA [id number] [place] [id number] [place] Potassium [Moles/Vol] 4.2 mmol/L Normal 3.7-5.1 [facility] Comment on above: Order Comment: Lenard jesus Type: BLOOD SPECIMENOrdering Facility: [facility] Address: [address] [place] [id number] Performed By: #### 2 432-, ####[facility]ORYCLIA [id number] [place] [address] [place] Sodium [Moles/Vol] 142 mmol/L Normal 136-144 [facility] Comment on above: Order Comment: Speci men Type: BLOOD SPECIMENOrdering Facility: [facility] Address: [address] [place] [address] Performed By: #### 2 4321-2, ####[facility]ORYCLIA [id number] [place] [address] [place] Urea nitrogen [Mass/Vol] 30 mg/dL High 7-21 [facility] Comment on above: Order Comment: Speci men Type: BLOOD SPECIMENOrdering Facility: [facility] Address: [address] [place], [place] [address] Performed By: #### 2 4321-2, ####[facility]ORYCLIA [id number] [place] [id number] [place] Magnesium SerPl-mCncon 07-13 Magnesium [Mass/Vol] 2.1 mg/dL Normal 1.7-2.3 [facility] Comment on above: Order Comment: Speci men Type: BLOOD SPECIMENOrdering Facility: [facility] Address: [address] [place], [place] [address] Performed By: #### 2 4321-2, ####[facility]ORYCLIA [id number] [place] [id number] [place] NURSING PROGon 07-14-2023 NURSING PROG HNO ID: [id number] Author: FLORENTINO REBOLLEDO RN Service: ? Author [...] urine. I/O. call mckeon in reach. Normal [facility] NURSING PROG HNO ID: [id number] Author: MEENA ALFORD RN Service: Nursing Author Type: Registered Nurse Type: Nursing Progress Note Filed: 07/14/2023 11:10 Note Text: Transfer Note: PATIENT NAME: Sandra Schmitz [phone]: Dr. Penaloza, Dr. Silva, and Jose Hill, WILLIAM all visited pt this am and updates given; orders rec'd. Pt's family at bedside. 1055: Patient transferred out to room/unit 3P318/CPPU to [place] [address] in stable condition via wheelchair. Actions taken: Report given/called to CARO Swartz. Pt's family with pt. And took pt belongings. Normal [facility] Basic metabolic 2000 panelon 07-13-2023 Anion gap [Moles/Vol] 9 mmol/L Normal 9-18 [facility] Comment on above: Order Comment: Speci men Type: BLOOD SPECIMENOrdering Facility: [facility] Address: [address] [place] [address] Performed By: #### 2 777-1, 88632-0, 46663-8, 64923-5 ####[facility]ORYCLIA [id number] [place] [address] [place] Calcium [Mass/Vol] 9.3 mg/dL Normal 8.5-10.2 [facility] Comment on above: Order Comment: Speci men Type: BLOOD SPECIMENOrdering Facility: [facility] Address: [address] [place] [address] Performed By: #### 2 777-1, 71502-9, 97097-0, ####[facility]ORYCLIA [id number] [place] [id number] [place] Chloride [Moles/Vol] 102 mmol/L Normal 97-105 [facility] Comment on above: Order Comment: Speci men Type: BLOOD SPECIMENOrdering Facility: [facility] Address: [address] [place] [address] Performed By: #### 2 777-1, 61964-4, 51529-4, ####[facility]ORYCLIA [id number] [place] [id number] [place] CO2 [Moles/Vol] 30 mmol/L Normal 22-30 [facility] Comment on above: Order Comment: Speci men Type: BLOOD SPECIMENOrdering Facility: [facility] Address: [address] [place] [address] Performed By: #### 2 777-1, 84081-2, 52148-3, ####[facility]ORYCLIA [id number] [place] [id number] [place] Creatinine [Mass/Vol] 1.05 mg/dL High 0.58-0.96 [facility] Comment on above: Order Comment: Speci men Type: BLOOD SPECIMENOrdering Facility: [facility] Address: [address] [place] [address] Performed By: #### 2 777-1, 18978-4, 83606-8, ####[facility]ORYCLIA [id number] [place] [id number] [place] Creatinine and Glomerular filtration rate.predicted panel (S/P/Bld) 55 mL/min/1.73m??? Low >=60 [facility] Comment on above: Order Comment: Speci men Type: BLOOD SPECIMENOrdering Facility: [facility] Address: [address] [place] [address] Result Comment: Aaron mated Glomerular Filtration Rate [...] actual GFR. Performed By: #### 2 777-1, 76629-5, 42957-1, ####[facility] LABORATORYCLIA [id number] [place] [id number] [place] Glucose [Mass/Vol] 94 mg/dL Normal 74-99 [facility] Comment on above: Order Comment: Lenard jesus Type: BLOOD SPECIMENOrdering Facility: [facility] Address: [address] [place] [address] Result Comment: The [place] Diabetes Association (ADA) provides guidance for cutoff [...] Standards of Medical Care in Diabetes 2016, [place] Diabetes Association. Diabetes Care. 2016.39(Suppl 1). Performed By: #### 2 777-1, 60984-9, 44451-6, 94305-9 ####[facility]ORATORYCLIA [id number] [place] [id number] [place] Potassium [Moles/Vol] 4.7 mmol/L Normal 3.7-5.1 [facility] Comment on above: Order Comment: Lenard jesus Type: BLOOD SPECIMENOrdering Facility: [facility] Address: [address] [place] [address] Performed By: #### 2 777-1, 81529-3, 77569-3, 60059-0 ####[facility]ORYCLIA [id number] [place] [address] [place] Sodium [Moles/Vol] 141 mmol/L Normal 136-144 [facility] Comment on above: Order Comment: Speci men Type: BLOOD SPECIMENOrdering Facility: [facility] Address: [address] [place] [address] Performed By: #### 2 777-1, 39088-3, 55981-6, 30471-1 ####[facility]ORYCLIA [id number] [place] [id number] [place] Urea nitrogen [Mass/Vol] 37 mg/dL High 7- [facility] Comment on above: Order Comment: Speci men Type: BLOOD SPECIMENOrdering Facility: [facility] Address: [address] [place] [address] Performed By: #### 2 777-1, 48472-5, 48265-0, 31998-3 ####[facility]ORYCLIA [id number] [place] [id number] [facility] CASE MANAGEMon 07-13-2023 CASE MANAGEM HNO ID: [id number] Author: ALIREZA ROBERTS LSW Service: ASSESSMENT Author Type: Physical Medicine Teacher Type: Care Mgt Progress Note Filed: 07/13/2023 11:11 Note Text: CARE MANAGEMENT PROGRESS NOTE SERVICE DATE: 07/13/2023 SERVICE TIME: 10:59 AM LOS: 3 days Needs Prior to Discharge: To Be Determined;Bed Availability SW reviewed EMR. Per EMR pt. Is waiting for a bed at [facility]. CM will remain available should any further discharge planning needs arise. SIGNATURE: CLARA Luna PATIENT NAME: Sandra Schmitz DATE: July 13, 2023 TIME: 10:58 AM PAGER/CONTACT #: [facility] CBC W Auto Differential pane l (Bld)on 07-13-2023 Basophils (Bld) [#/Vol] 0.07 10*3/uL Normal <0.11 [facility] Comment on above: Order Comment: Speci men Type: BLOOD SPECIMENOrdering Facility: [facility] Address: [address] [place] [address] Performed By: #### 5 7021-8 ####[facility] LABORATORYCLIA [id number] [place] [address] [place] Basophils/100 WBC (Bld) 0.9 % Normal [facility] Comment on above: Order Comment: Speci men Type: BLOOD SPECIMENOrdering Facility: [facility] Address: [address] [place] [address] Performed By: #### 5 7021-8 ####[facility]ATORYCLIA [id number] [place] [address] [place] Differential cell count method Nom (Bld) Auto Normal [facility] Comment on above: Order Comment: Speci men Type: BLOOD SPECIMENOrdering Facility: [facility] Address: [address] [place] [address] Performed By: #### 5 7021-8 ####[facility]ORYCLIA [id number] [place] [address] [place] Eosinophils (Bld) [#/Vol] 0.23 10*3/uL Normal <0.46 [facility] Comment on above: Order Comment: Speci men Type: BLOOD SPECIMENOrdering Facility: [facility] Address: [address] [place] [address] Performed By: #### 5 7021-8 ####[facility]ORYCLIA [id number] [place] [address] [place] Eosinophils/100 WBC (Bld) 3.0 % Normal [facility] Comment on above: Order Comment: Speci men Type: BLOOD SPECIMENOrdering Facility: [facility] Address: [address] [place] [address] Performed By: #### 5 7021-8 ####[facility]ORYCLIA [id number] [place] [address] [place] Erythrocyte distribution width (RBC) [Ratio] 14.7 % Normal 11.5-15.0 [facility] Comment on above: Order Comment: Speci men Type: BLOOD SPECIMENOrdering Facility: [facility] Address: [address] [place] [address] Performed By: #### 5 7021-8 ####[facility]ORYCLIA [id number] [place] [address] [place] Hematocrit (Bld) [Volume fraction] 37.5 % Normal 36.0-46.0 [facility] Comment on above: Order Comment: Speci men Type: BLOOD SPECIMENOrdering Facility: [facility] Address: [address] [place] [address] Performed By: #### 5 7021-8 ####[facility]ATORYCLIA [id number] [place] [address] [place] Hemoglobin (Bld) [Mass/Vol] 12.0 g/dL Normal 11.5-15.5 [facility] Comment on above: Order Comment: Speci men Type: BLOOD SPECIMENOrdering Facility: [facility] Address: [address] [place] [address] Performed By: #### 5 7021-8 ####[facility]ATORYCLIA [id number] [place] [address] [place] Immature granulocytes (Bld) [#/Vol] 0.04 10*3/uL Normal <0.10 [facility] Comment on above: Order Comment: Speci men Type: BLOOD SPECIMENOrdering Facility: [facility] Address: [address] [place] [address] Performed By: #### 5 7021-8 ####[facility]ATORYCLIA [id number] [place] [address] [place] Immature granulocytes/100 WBC (Bld) 0.5 % Normal [facility] Comment on above: Order Comment: Speci men Type: BLOOD SPECIMENOrdering Facility: [facility] Address: [address] [place] [address] Performed By: #### 5 7021-8 ####[facility]ORATORYCLIA [id number] [place] [address] [place] Lymphocytes (Bld) [#/Vol] 2.98 10*3/uL Normal 1.00-4.00 [facility] Comment on above: Order Comment: Speci men Type: BLOOD SPECIMENOrdering Facility: [facility] Address: [address] [place] [address] Performed By: #### 5 7021-8 ####[facility]ORATORYCLIA [id number] [address] Lymphocytes/100 WBC (Bld) 39.4 % Normal [facility] Comment on above: Order Comment: Speci men Type: BLOOD SPECIMENOrdering Facility: [facility] Address: [address] [place] [address] Performed By: #### 5 7021-8 ####[facility] LABORATORYCLIA [id number] [address] MCH (RBC) [Entitic mass] 29.4 pg Normal 26.0-34.0 [facility] Comment on above: Order Comment: Speci men Type: BLOOD SPECIMENOrdering Facility: [facility] Address: [address] [place] [address] Performed By: #### 5 7021-8 ####KO LABORATORYCLIA [id number] [address] MCHC (RBC) [Mass/Vol] 32.0 g/dL Normal 30.5-36.0 [facility] Comment on above: Order Comment: Speci men Type: BLOOD SPECIMENOrdering Facility: [facility] Address: [address] [place] [address] Performed By: #### 5 7021-8 ####KO LABORATORYCLIA [id number] [address] MCV (RBC) [Entitic vol] 91.9 fL Normal 80.0-100.0 [facility] Comment on above: Order Comment: Speci men Type: BLOOD SPECIMENOrdering Facility: [facility] Address: [address] [place] [address] Performed By: #### 5 7021-8 ####KO LABORATORYCLIA [id number] [address] [place] Monocytes (Bld) [#/Vol] 0.72 10*3/uL Normal <0.87 [facility] Comment on above: Order Comment: Speci men Type: BLOOD SPECIMENOrdering Facility: [facility] Address: [address] [place] [address] Performed By: #### 5 7021-8 ####KO LABORATORYCLIA [id number] [place] [address] [place] Monocytes/100 WBC (Bld) 9.5 % Normal [facility] Comment on above: Order Comment: Speci men Type: BLOOD SPECIMENOrdering Facility: [facility] Address: [address] [place] [address] Performed By: #### 5 7021-8 ####KO LABORATORYCLIA [id number] [place] [address] [place] Neutrophils (Bld) [#/Vol] 3.52 10*3/uL Normal 1.45-7.50 [facility] Comment on above: Order Comment: Speci men Type: BLOOD SPECIMENOrdering Facility: [facility] Address: [address] [place] [address] Performed By: #### 5 7021-8 ####KO LABORATORYCLIA [id number] [address] [place] Neutrophils/100 WBC (Bld) 46.7 % Normal [facility] Comment on above: Order Comment: Speci men Type: BLOOD SPECIMENOrdering Facility: [facility] Address: [address] [place] [address] Performed By: #### 5 7021-8 ####KO LABORATORYCLIA [id number] [place] [address] [place] Nucleated RBC (Bld) [#/Vol] 10*3/uL Normal <0.01 [facility] Comment on above: Order Comment: Speci men Type: BLOOD SPECIMENOrdering Facility: [facility] Address: [address] [place] [address] Performed By: #### 5 7021-8 ####KO LABORATORYCLIA [id number] [place] [address] [place] Nucleated RBC/100 WBC (Bld) [Ratio] 0.0 /100 WBC Normal [facility] Comment on above: Order Comment: Speci men Type: BLOOD SPECIMENOrdering Facility: [facility] Address: [facility] [place] [address] Performed By: #### 5 7021-8 ####KO LABORATORYCLIA [id number] [place] [address] [place] Platelet mean volume (Bld) [Entitic vol] 10.1 fL Normal 9.0-12.7 [facility] Comment on above: Order Comment: Speci men Type: BLOOD SPECIMENOrdering Facility: [facility] Address: [address] [place] [address] Performed By: #### 5 7021-8 ####KO LABORATORYCLIA [id number] [place] [address] [place] Platelets (Bld) [#/Vol] 270 10*3/uL Normal 150-400 [facility] Comment on above: Order Comment: Speci men Type: BLOOD SPECIMENOrdering Facility: [facility] Address: [address] [place] [address] Performed By: #### 5 7021-8 ####KO LABORATORYCLIA [id number] [place] [address] [place] RBC (Bld) [#/Vol] 4.08 10*6/uL Normal 3.90-5.20 [facility] Comment on above: Order Comment: Speci men Type: BLOOD SPECIMENOrdering Facility: [facility] Address: [address] [place] [address] [place] [address] Performed By: #### 5 7021-8 ####KO LABORATORYCLIA [id number] [place] [address] [place] WBC (Bld) [#/Vol] 7.56 10*3/uL Normal 3.70-11.00 [facility] Comment on above: Order Comment: Speci men Type: BLOOD SPECIMENOrdering Facility: [facility] Address: [address] [place] [address] Performed By: #### 5 7021-8 ####KO LABORATORYCLIA [id number] [place] [address] [place] CBC panel Auto (Bld)on 07-12 Erythrocyte distribution width (RBC) [Ratio] 14.6 % Normal 11.5-15.0 [facility] Comment on above: Order Comment: Speci men Type: BLOOD SPECIMEN Ordering Facility: [facility] Address: [address] [place] [address] Performed By: #### 5 8410-2 #### [facility] CLIA [id number] [address] [place] [address] [place] Hematocrit (Bld) [Volume fraction] 41.7 % Normal 36.0-46.0 [facility] Comment on above: Order Comment: Speci men Type: BLOOD SPECIMEN Ordering Facility: [facility] Address: [address] [place] [address] Performed By: #### 5 8410-2 #### [facility] CLIA [id number] [address] [place] [address] [place] Hemoglobin (Bld) [Mass/Vol] 13.3 g/dL Normal 11.5-15.5 [facility] Comment on above: Order Comment: Speci men Type: BLOOD SPECIMEN Ordering Facility: [facility] Address: [address] [place] [address] Performed By: #### 5 8410-2 #### [facility] CLIA [id number] [address] [place] [address] [place] MCH (RBC) [Entitic mass] 29.4 pg Normal 26.0-34.0 [facility] Comment on above: Order Comment: Speci men Type: BLOOD SPECIMEN Ordering Facility: [facility] Address: [address] [place] [address] Performed By: #### 5 8410-2 #### [facility] CLIA [id number] [address] [place] [address] [place] MCHC (RBC) [Mass/Vol] 31.9 g/dL Normal 30.5-36.0 [facility] Comment on above: Order Comment: Speci men Type: BLOOD SPECIMEN Ordering Facility: [facility] Address: [address] [place] [address] Performed By: #### 5 8410-2 #### [facility] CLIA [id number] [address] [place] [address] [place] MCV (RBC) [Entitic vol] 92.1 fL Normal 80.0-100.0 [facility] Comment on above: Order Comment: Speci men Type: BLOOD SPECIMEN Ordering Facility: [facility] Address: [address] [place] [address] Performed By: #### 5 8410-2 #### [facility] CLIA [id number] [address] [place] [address] [place] Nucleated RBC (Bld) [#/Vol] 10*3/uL Normal <0.01 [facility] Comment on above: Order Comment: Speci men Type: BLOOD SPECIMEN Ordering Facility: [facility] Address: [address] [place] [address] Performed By: #### 5 8410-2 #### [facility] CLIA [id number] [address] [place] [address] [place] Platelet mean volume (Bld) [Entitic vol] 10.3 fL Normal 9.0-12.7 [facility] Comment on above: Order Comment: Speci men Type: BLOOD SPECIMEN Ordering Facility: [facility] Address: [address] [place] [address] Performed By: #### 5 8410-2 #### [facility] CLIA [id number] [address] [place] [address] [place] Platelets (Bld) [#/Vol] 299 10*3/uL Normal 150-400 [facility] Comment on above: Order Comment: Speci men Type: BLOOD SPECIMEN Ordering Facility: [facility] Address: [address] [place] [address] Performed By: #### 5 8410-2 #### [facility] CLIA [id number] [address] [place] [address] [place] RBC (Bld) [#/Vol] 4.53 10*6/uL Normal 3.90-5.20 [facility] Comment on above: Order Comment: Lenard jesus Type: BLOOD SPECIMEN Ordering Facility: [facility] Address: [address] [place] [address] Performed By: #### 5 8410-2 #### [facility] CLIA [id number] [address] [place] [id number] [place] WBC (Bld) [#/Vol] 8.78 10*3/uL Normal 3.70-11.00 [facility] Comment on above: Order Comment: Lenard men Type: BLOOD SPECIMEN Ordering Facility: [facility] Address: [address] [place] [address] Performed By: #### 5 8410-2 #### [facility] CLIA [id number] [place], [place] [address] [place] CK SerPl-cCncon 07-13-2023 CK [Catalytic activity/Vol] 51 U/L Normal 42-196 [facility] Comment on above: Order Comment: Lenard jesus Type: BLOOD SPECIMENOrdering Facility: [facility] Address: [address] [place] [address] Performed By: #### 1 9123-9, 63989-1, 2157-6 ####[facility] LABORATORYCLIA [id number] [place] [id number] [place] CNDSon 07-13-2023 CNDS HNO ID: [id number] Author: REMINGTON CAI MD Service: Hospital Medicine [...] beta-lorenzo. Unable to schedule pacer defibrillator and [place] and contacted [facility] in August to have Dr. Wellington [...] pacer defibrillator plan to be done at [facility] Disposition: Transfer to [facility] on [facility] medicine with consult to Dr. Dilcia [...] Recent Labs (more content not included)... Normal [facility] CNPNon 07-13-2023 CNPN Telephone (FVPRAD) ----- SANDRA SCHMITZ ([id number]) 1945 [place] Date Time Provider Department 07/13/23 RAHUL BEE During your visit today, we recorded the following information about you: Rahul Bee MD 07/13/2023 7:28 AM Signed Hospital Medicine Transfer Received page for transfer request from [facility] to [facility]: Sandra Schmitz is 77 year old female who presented with non ischemic decompensated heart failure EF 26%. Suspected runs of tachycardia of unclear origin. Being transferred for possible RN RENAL. Cannot tolerate betablocker. Currently SBP in 100s. No ICD before. Mild CAD. Reason for transfer: Possible RN RENAL placement Accepted to hospital medicine service at [...] Assessed Reason for Visit: Hospital To Hospital [[id number]] Prescriptions as of 07/13/2023 - metoprolol succinate [...] dysfunction of (more content not included)... Normal [facility] CONSULTon 07-13-2023 CONSULT HNO ID: [id number] Author: BRUNO PENALOZA MD Service: Electrophysiology Author Type: Physician Type: Consults Filed: 07/14/2023 11:43 Note Text: [facility]ARDI[facility]ASCULAR [facility]ICINE CONSULT NOTE Sandra Schmitz [id number] PRIMARY SERVICE: Internal Medicine CONSULTING SERVICE: Cardiovascular Medicine: Electrophysiology DATE OF ADMISSION: 07/13/2023 DATE OF CONSULT: 07/13/2023 REASON FOR CONSULT Consideration for RN RENAL-D HISTORY OF PRESENT ILLNESS Sandra Schmitz is a 77 year old female, who presented initially to [facility] due to concerns for chest pressure with associated postural lightheadedness and bendopnea. Shew as subsequently admitted for further evaluation and management. She underwent lexiscan which was negative for inducible ischemia and transthoracic echocardiogram demonstrated persistently reduced ejection fraction of <35%. There was difficulty initiating GDMT due to hypotension and bradycardia. Thus [facility] EP was consutled for consideration for inpatient RN RENAL implantation given her longstanding LBBB, dating back [...] EC tabletTak (more content not included)... Normal [facility] ECG COMPLETEon 07-13-2023 ECG COMPLETE Ventricular Rate : 5 8 BPM Atrial Rate : 58 BPM P-R Interval : 148 ms QRS Duration : 177 ms Q-T Interval : 485 ms QTC Calculation(Bazett) : 477 ms Calculated P [place] : 36 degrees Calculated R [place] : -23 degrees Calculated T [place] : 151 degrees Sinus rhythm Left bundle branch block Confirmed by ROSALIA WARNER MD ([id number]) on 08/23/2023 1:01:19 PM NAME : SANDRA SCHMITZ PID : [id number] : 1945 Gender : Female Race : ORD : [id number] Procedure Date : Jul 13 2023 17:24:10 Edit Date : Aug 23 2023 13:01:20 Diagnosis: Sinus rhythm Left bundle branch block Confirmed by ROSALIA WARNER MD ([id number]) on 08/23/2023 1:01:19 PM Test Reason : Shortness of Breath Location : 400 : FVEKG 3P31 Overread By : ROSALIA WARNER MD Edited By : ROSALIA WARNER MD Referred By : REMINGTON CAI Acquired by : ILDEFONSO SANCHEZ [facility] HISTORY PHYSICALon HISTORY PHYSICAL HNO ID: [id number] Author: LOUISA CAMP DO Service: Hospital Medicine Author Type: Physician Type: H&P Filed: 07/13/2023 18:22 Note Text: Hospital Medicine Admission History and Physical PRIMARY SERVICE: HOSPITAL MEDICINE Days: Page or epic chat me directly Evenings: Page hospital medicine pager [phone] PATIENT NAME: Sandra Schmitz DATE of SERVICE: July 13, 2023 TIME of SERVICE: 3:14 PM PCP: Mandeep Houser CODE STATUS: No Order ASSESSMENT/PLAN SUMMARY: 77yo female PMH HFrEF, LBBB, hypothyroidism, initially admitted to [facility] for acute on chronic HFrEF. She was stabilized with IV diuresis however course complicated by hypotension and bradycardia. She was transferred to [facility] for biventricular pacer defibrillator placement Acute on [...] fibrillation. She has seen Dr. Greenfield the manager secondary. She is to be scheduled for pacer [...] tried to get the procedure scheduled in [place] but they had no openings and Dr. Castro was able to contact Dr. Wellington and patient will be transferred to [facility] on hospital medicine service for her [...] and is agreeable to current plan. Normal [facility] Magnesium [facility] 07-12 Magnesium [Mass/Vol] 2.1 mg/dL Normal 1.7-2.3 [facility] Comment on above: Order Comment: Speci men Type: BLOOD SPECIMENOrdering Facility: [facility] Address: [address] [place] [address] Performed By: #### 2 777-1, 35131-1, 81618-0, 04348-8 ####[facility] LABORATORYCLIA [id number] [address] [place] Magnesium [Mass/Vol] 2.1 mg/dL Normal 1.7-2.3 [facility] Comment on above: Order Comment: Speci men Type: BLOOD SPECIMENOrdering Facility: [facility] Address: [address] [place] [address] Performed By: #### 1 9123-9, 36112-0, 215-6 ####[facility]ORATORYCLIA [id number] [place] [address] [place] [facility] Natriuretic peptide.B prohormone N-Terminal [Mass/Vol] 2522 pg/mL High <450 [facility] Comment on above: Order Comment: Speci men Type: BLOOD SPECIMENOrdering Facility: [facility] Address: [address] [place] [address] Performed By: #### 2 777-1, 72456-9, 10525-6, 84852-7 ####[facility] LABORATORYCLIA [id number] [place] [id number] [facility] NURSING PROGon 07-13-2023 NURSING PROG HNO ID: [id number] Author: MARY LOU CRUZ RN Service: Nursing Author Type: Registered Nurse Type: Nursing Progress Note Filed: 07/13/2023 16:48 Note Text: 1425 Pt arrived to unit with transport from [facility] in stable condition. Tele SR on monitor. Pt oriented to unit and plan of care 1600 Dr. Camp into see pt. Attempting to wean O2 at this time [facility] NURSING PROG HNO ID: [id number] Author: MISTY ASCENCIO, RN Service: Nursing Author Type: Registered Nurse Type: Nursing Progress Note Filed: 07/13/2023 11:31 Note Text: PATIENT EDUCATION HEART FAILURE PATIENT NAME: Sandra Schmitz PATIENT LOCATION: [place] [id number] SURVIVAL SKILLS: Low Sodium Diet Weight Monitoring and Dry Weight Importance of Follow Up after Discharge Fluid Restriction, if applicable Heart Failure Medications Symptom Management related to heart failure Activity / Physical Exercise Recommendations Smoking cessation counseling if applicable When Patient Should Call Provider Follow up visit for CHF education. Survival Skills revieved. No questions @ this time. Awaiting transfer to [facility]. Electronically Signed By: Misty Ascencio [facility] Phosphate SerPl-ncon 07-12 Phosphate [Mass/Vol] 3.1 mg/dL Normal 2.7-4.8 [facility] Comment on above: Order Comment: Speci men Type: BLOOD SPECIMENOrdering Facility: [facility] Address: [address] [place] [address] Performed By: #### 2 777-1, 69020-0, 42606-7, ####[facility] LABORATORYCLIA [id number] [place] [id number] [place] Renal function 2000 panelon 07-13-2023 Albumin [Mass/Vol] 3.8 g/dL Low 3.9-4.9 [facility] Comment on above: Order Comment: Speci men Type: BLOOD SPECIMENOrdering Facility: [facility] Address: [address] [place] [address] Performed By: #### 1 9123-9, 75507-4, 2156-10 ####[facility] LABORATORYCLIA [id number] [place] [address] [place] Anion gap [Moles/Vol] 9 mmol/L Normal 9-18 [facility] Comment on above: Order Comment: Speci men Type: BLOOD SPECIMENOrdering Facility: [facility] Address: [address] [place] [address] Performed By: #### 1 9123-9, , 2156-10 ####[facility] LABORATORYCLIA [id number] [place] [address] [place] Calcium [Mass/Vol] 9.1 mg/dL Normal 8.5-10.2 [facility] Comment on above: Order Comment: Speci men Type: BLOOD SPECIMENOrdering Facility: [facility] Address: [address] [place] [address] Performed By: #### 1 9123-9, , 2156-10 ####[facility] LABORATORYCLIA [id number] [place] [address] [place] Chloride [Moles/Vol] 103 mmol/L Normal 97-105 [facility] Comment on above: Order Comment: Speci men Type: BLOOD SPECIMENOrdering Facility: [facility] Address: [address] [place] [address] Performed By: #### 1 9123-9, 81675-2, 2156-10 ####KO LABORATORYCLIA [id number] [place] [address] [place] CO2 [Moles/Vol] 31 mmol/L High 22-30 [facility] Comment on above: Order Comment: Lenard jesus Type: BLOOD SPECIMENOrdering Facility: [facility] Address: [address] [place] [address] Performed By: #### 1 9123-9, 78536-7, 2156-10 ####[facility]ORATORYCLIA [id number] [place] [id number] [place] Creatinine [Mass/Vol] 1.02 mg/dL High 0.58-0.96 [facility] Comment on above: Order Comment: Lenard jesus Type: BLOOD SPECIMENOrdering Facility: [facility] Address: [address] [place] [address] Performed By: #### 1 9123-9, , 2156-10 ####[facility] LABORATORYCLIA [id number] [place] [id number] [place] Creatinine and Glomerular filtration rate.predicted panel (S/P/Bld) 57 mL/min/1.73m??? Low >=60 [facility] Comment on above: Order Comment: [facility] Type: BLOOD SPECIMENOrdering Facility: [facility] Address: [address] [place] [address] Result Comment: Aaron mated Glomerular Filtration Rate [...] actual GFR. Performed By: #### 1 9123-9, 15235-9, 2156-10 ####[facility] LABORATORYCLIA [id number] [place] [id number] [place] Glucose [Mass/Vol] 91 mg/dL Normal 74-99 [facility] Comment on above: Order Comment: [facility] Type: BLOOD SPECIMENOrdering Facility: [facility] Address: [address] [place] [address] Result Comment: The [place] Diabetes Association (ADA) provides guidance for cutoff [...] Standards of Medical Care in Diabetes 2016, [place] Diabetes Association. Diabetes Care. 2016.39(Suppl 1). Performed By: #### 1 9123-9, , 2156-10 ####[facility] LABORATORYCLIA [id number] [place] [address] [place] Phosphate [Mass/Vol] 3.2 mg/dL Normal 2.7-4.8 [facility] Comment on above: Order Comment: Lenard jesus Type: BLOOD SPECIMENOrdering Facility: [facility] Address: [address] [place] [address] Performed By: #### 1 9123-9, , 2156-10 ####KO LABORATORYCLIA [id number] [place] [address] [place] Potassium [Moles/Vol] 4.3 mmol/L Normal 3.7-5.1 [facility] Comment on above: Order Comment: Lenard jesus Type: BLOOD SPECIMENOrdering Facility: [facility] Address: [address] [place] [address] Performed By: #### 1 9123-9, , 2156-10 ####KO LABORATORYCLIA [id number] [place] [id number] [place] Sodium [Moles/Vol] 143 mmol/L Normal 136-144 [facility] Comment on above: Order Comment: Lenard jesus Type: BLOOD SPECIMENOrdering Facility: [facility] Address: [address] [place] [address] Performed By: #### 1 9123-9, , 2156-10 ####KO LABORATORYCLIA [id number] [place] [id number] [place] Urea nitrogen [Mass/Vol] 33 mg/dL High 7- [facility] Comment on above: Order Comment: Speci edin Type: BLOOD SPECIMENOrdering Facility: [facility] Address: [address] [place] [address] Performed By: #### 1 9123-9, 21060-9, 2157-6 ####[facility] LABORATORYCLIA [id number] [place] [id number] [place] XR CHEST 2V [...] is unremarkable. IMPRESSION: No acute cardiopulmonary process. Tricot Knitter: PSCB Transcribe Date/Time: Jul 13 2023 5:02P Dictated by : LILI MARSH MD This examination was interpreted and the report reviewed and electronically signed by: LILI MARSH MD on Jul 13 2023 5:03PM EST [id number] Normal [facility] CBC W Auto Differential pane l (Bld)on 07-12-2023 Basophils (Bld) [#/Vol] 0.08 10*3/uL Normal <0.11 [facility] Comment on above: Order Comment: Speci edin Type: BLOOD SPECIMENOrdering Facility: [facility] Address: [address] [place] [address] Performed By: #### 5 7021-8 ####[facility] LABORATORYCLIA [id number] [place] [id number] [place] Basophils/100 WBC (Bld) 1.0 % Normal [facility] Comment on above: Order Comment: Speci men Type: BLOOD SPECIMENOrdering Facility: [facility] Address: [address] [place] [address] Performed By: #### 5 7021-8 ####KO LABORATORYCLIA [id number] [address] [place] Differential cell count method Nom (Bld) Auto Normal [facility] Comment on above: Order Comment: Speci men Type: BLOOD SPECIMENOrdering Facility: [facility] Address: [address] [place] [address] Performed By: #### 5 7021-8 ####KO LABORATORYCLIA [id number] [place] [address] [place] Eosinophils (Bld) [#/Vol] 0.27 10*3/uL Normal <0.46 [facility] Comment on above: Order Comment: Speci men Type: BLOOD SPECIMENOrdering Facility: [facility] Address: [address] [place] [address] Performed By: #### 5 7021-8 ####KO LABORATORYCLIA [id number] [address] [place] Eosinophils/100 WBC (Bld) 3.5 % Normal [facility] Comment on above: Order Comment: Speci men Type: BLOOD SPECIMENOrdering Facility: [facility] Address: [address] [place] [address] Performed By: #### 5 7021-8 ####KO LABORATORYCLIA [id number] [address] [place] Erythrocyte distribution width (RBC) [Ratio] 14.8 % Normal 11.5-15.0 [facility] Comment on above: Order Comment: Speci men Type: BLOOD SPECIMENOrdering Facility: [facility] Address: [address] [place] [address] Performed By: #### 5 7021-8 ####KO LABORATORYCLIA [id number] [address] [place] Hematocrit (Bld) [Volume fraction] 38.9 % Normal 36.0-46.0 [facility] Comment on above: Order Comment: Speci men Type: BLOOD SPECIMENOrdering Facility: [facility] Address: [address] [place] [address] Performed By: #### 5 7021-8 ####KO LABORATORYCLIA [id number] [place] [address] [place] Hemoglobin (Bld) [Mass/Vol] 12.2 g/dL Normal 11.5-15.5 [facility] Comment on above: Order Comment: Speci men Type: BLOOD SPECIMENOrdering Facility: [facility] Address: [address] [place] [address] Performed By: #### 5 7021-8 ####KO LABORATORYCLIA [id number] [place] [address] [place] Immature granulocytes (Bld) [#/Vol] 0.03 10*3/uL Normal <0.10 [facility] Comment on above: Order Comment: Speci men Type: BLOOD SPECIMENOrdering Facility: [facility] Address: [address] [place] [address] Performed By: #### 5 7021-8 ####KO LABORATORYCLIA [id number] [place] [address] [place] Immature granulocytes/100 WBC (Bld) 0.4 % Normal [facility] Comment on above: Order Comment: Speci men Type: BLOOD SPECIMENOrdering Facility: [facility] Address: [address] [place] [address] Performed By: #### 5 7021-8 ####KO LABORATORYCLIA [id number] [place] [address] [place] Lymphocytes (Bld) [#/Vol] 2.73 10*3/uL Normal 1.00-4.00 [facility] Comment on above: Order Comment: Speci men Type: BLOOD SPECIMENOrdering Facility: [facility] Address: [address] [place] [address] Performed By: #### 5 7021-8 ####KO LABORATORYCLIA [id number] [address] [place] Lymphocytes/100 WBC (Bld) 35.5 % Normal [facility] Comment on above: Order Comment: Speci men Type: BLOOD SPECIMENOrdering Facility: [facility] Address: [address] [place] [address] Performed By: #### 5 7021-8 ####KO LABORATORYCLIA [id number] [place] [address] [place] MCH (RBC) [Entitic mass] 28.8 pg Normal 26.0-34.0 [facility] Comment on above: Order Comment: Speci men Type: BLOOD SPECIMENOrdering Facility: [facility] Address: [address] [place] [address] Performed By: #### 5 7021-8 ####KO LABORATORYCLIA [id number] [place] [address] [place] MCHC (RBC) [Mass/Vol] 31.4 g/dL Normal 30.5-36.0 [facility] Comment on above: Order Comment: Speci men Type: BLOOD SPECIMENOrdering Facility: [facility] Address: [address] [place] [address] Performed By: #### 5 7021-8 ####KO LABORATORYCLIA [id number] [address] [place] MCV (RBC) [Entitic vol] 92.0 fL Normal 80.0-100.0 [facility] Comment on above: Order Comment: Speci men Type: BLOOD SPECIMENOrdering Facility: [facility] Address: [address] [place] [address] Performed By: #### 5 7021-8 ####KO LABORATORYCLIA [id number] [place] [address] [place] Monocytes (Bld) [#/Vol] 0.76 10*3/uL Normal <0.87 [facility] Comment on above: Order Comment: Speci men Type: BLOOD SPECIMENOrdering Facility: [facility] Address: [address] [place] [address] Performed By: #### 5 7021-8 ####KO LABORATORYCLIA [id number] [address] [place] Monocytes/100 WBC (Bld) 9.9 % Normal [facility] Comment on above: Order Comment: Speci men Type: BLOOD SPECIMENOrdering Facility: [facility] Address: [address] [address] [place] [address] Performed By: #### 5 7021-8 ####KO LABORATORYCLIA [id number] [place] [address] [place] Neutrophils (Bld) [#/Vol] 3.82 10*3/uL Normal 1.45-7.50 [facility] Comment on above: Order Comment: Speci men Type: BLOOD SPECIMENOrdering Facility: [facility] Address: [address] [place] [address] Performed By: #### 5 7021-8 ####KO LABORATORYCLIA [id number] [place] [address] [place] Neutrophils/100 WBC (Bld) 49.7 % Normal [facility] Comment on above: Order Comment: Speci men Type: BLOOD SPECIMENOrdering Facility: [facility] Address: [address] [place] [address] Performed By: #### 5 7021-8 ####KO LABORATORYCLIA [id number] [place] [address] [place] Nucleated RBC (Bld) [#/Vol] 10*3/uL Normal <0.01 [facility] Comment on above: Order Comment: Speci men Type: BLOOD SPECIMENOrdering Facility: [facility] Address: [address] [place] [address] Performed By: #### 5 7021-8 ####KO LABORATORYCLIA [id number] [place] [address] [place] Nucleated RBC/100 WBC (Bld) [Ratio] 0.0 /100 WBC Normal [facility] Comment on above: Order Comment: Speci men Type: BLOOD SPECIMENOrdering Facility: [facility] Address: [address] [place] [address] Performed By: #### 5 7021-8 ####KO LABORATORYCLIA [id number] [place] [address] [place] Platelet mean volume (Bld) [Entitic vol] 10.2 fL Normal 9.0-12.7 [facility] Comment on above: Order Comment: Speci men Type: BLOOD SPECIMENOrdering Facility: [facility] Address: [address] [place] [address] Performed By: #### 5 7021-8 ####KO LABORATORYCLIA [id number] [address] Platelets (Bld) [#/Vol] 273 10*3/uL Normal 150-400 [facility] Comment on above: Order Comment: Speci men Type: BLOOD SPECIMENOrdering Facility: [facility] Address: [address] [place] [address] Performed By: #### 5 7021-8 ####KO LABORATORYCLIA [id number] [address] [place] RBC (Bld) [#/Vol] 4.23 10*6/uL Normal 3.90-5.20 [facility] Comment on above: Order Comment: Speci men Type: BLOOD SPECIMENOrdering Facility: [facility] Address: [address] [place] [address] Performed By: #### 5 7021-8 ####KO LABORATORYCLIA [id number] [address] WBC (Bld) [#/Vol] 7.69 10*3/uL Normal 3.70-11.00 [facility] Comment on above: Order Comment: Speci men Type: BLOOD SPECIMENOrdering Facility: [facility] Address: [address] [place] [address] Performed By: #### 5 7021-8 ####KO LABORATORYCLIA [id number] [address] [place] CK SerPl-cCncon 07-12-2023 CK [Catalytic activity/Vol] 51 U/L Normal 42-196 [facility] Comment on above: Order Comment: Speci men Type: BLOOD SPECIMENOrdering Facility: [facility] Address: [address] [place] [address] Performed By: #### 2 157-6, 67194-1, 48338-2 ####KO LABORATORYCLIA [id number] [address] [place] ECHOon 07-12-2023 Echocardiography Echocardiography Rep ort: Transthoracic Echo [facility] Date of service: 07/12/2023 11:47:34 AM Ordering physician: ÁLVARO LOBO Indication: Chest Pain Symptom(s): Chest Pain and Shortness of breath Technologist: Jimena George [facility] Interpreting physician: Cony Almonte MD PATIENT: Name: [...] motion abnormaliti (more content not included)... Normal [facility] Magnesium SerPl-ncon Magnesium [Mass/Vol] 2.1 mg/dL Normal 1.7-2.3 [facility] Comment on above: Order Comment: Speci men Type: BLOOD SPECIMENOrdering Facility: [facility] Address: [address] [place], [place] [address] Performed By: #### 2 157-6, 63980-4, ####LINCOLN LABORATORYCLIA [id number] [place] [address] [place] Renal function [address] [place] [address] 07-12-2023 Albumin [Mass/Vol] 3.6 g/dL Low 3.9-4.9 [facility] Comment on above: Order Comment: Speci men Type: BLOOD SPECIMENOrdering Facility: [facility] Address: [address] [place], [place] [address] Performed By: #### 2 157-6, 57294-1, ####LINCOLN LABORATORYCLIA [id number] [place] [address] [place] Anion gap [Moles/Vol] 8 mmol/L Low 9-18 [facility] Comment on above: Order Comment: Speci men Type: BLOOD SPECIMENOrdering Facility: [facility] Address: [address] [place] [id number] Performed By: #### 2 157-6, 71596-5, ####LINCOLN LABORATORYCLIA [id number] [place] [id number] [place] Calcium [Mass/Vol] 8.8 mg/dL Normal 8.5-10.2 [facility] Comment on above: Order Comment: Speci men Type: BLOOD SPECIMENOrdering Facility: [facility] Address: [address] [place] [address] Performed By: #### 2 157-6, 00198-5, 72037-6 ####KO LABORATORYCLIA [id number] [place] [address] [place] Chloride [Moles/Vol] 103 mmol/L Normal 97-105 [facility] Comment on above: Order Comment: Speci men Type: BLOOD SPECIMENOrdering Facility: [facility] Address: [address] [place] [address] Performed By: #### 2 157-6, 71085-9, 66836-7 ####KO LABORATORYCLIA [id number] [place] [id number] [place] CO2 [Moles/Vol] 28 mmol/L Normal 22-30 [facility] Comment on above: Order Comment: Speci men Type: BLOOD SPECIMENOrdering Facility: [facility] Address: [address] [place] [address] Performed By: #### 2 157-6, 45485-1, ####KO LABORATORYCLIA [id number] [place] [address] [place] Creatinine [Mass/Vol] 0.95 mg/dL Normal 0.58-0.96 [facility] Comment on above: Order Comment: Speci men Type: BLOOD SPECIMENOrdering Facility: [facility] Address: [address] [place] [address] Performed By: #### 2 157-6, 41274-9, 52779-0 ####KO LABORATORYCLIA [id number] [address] [place] Creatinine and Glomerular filtration rate.predicted panel (S/P/Bld) 62 mL/min/1.73m??? Normal >=60 [facility] Comment on above: Order Comment: Speci men Type: BLOOD SPECIMENOrdering Facility: [facility] Address: [address] [place] [address] Result Comment: Aaron mated Glomerular Filtration Rate [...] actual GFR. Performed By: #### 2 157-6, 29439-8, ####LINCOLN LABORATORYCLIA [id number] [place] [address] [place] Glucose [Mass/Vol] 89 mg/dL Normal 74-99 [facility] Comment on above: Order Comment: Lenard jesus Type: BLOOD SPECIMENOrdering Facility: [facility] Address: [address] [place], [place] [address] Result Comment: The [place] Diabetes Association (ADA) provides guidance for cutoff [...] Standards of Medical Care in Diabetes 2016, [place] Diabetes [employer]. Diabetes Care. 2016.39(Suppl 1). Performed By: #### 2 157-6, 91460-9, ####LINCOLN LABORATORYCLIA [id number] [place] [address] [place] Phosphate [Mass/Vol] 3.7 mg/dL Normal 2.7-4.8 [facility] Comment on above: Order Comment: Lenard jesus Type: BLOOD SPECIMENOrdering Facility: [facility] Address: [address] [place] [address] Performed By: #### 2 157-6, 85100-2, ####LINCOLN LABORATORYCLIA [id number] [place] [address] [place] Potassium [Moles/Vol] 3.8 mmol/L Normal 3.7-5.1 [facility] Comment on above: Order Comment: Speci men Type: BLOOD SPECIMENOrdering Facility: [facility] Address: [address] [place], [place] [address] Performed By: #### 2 157-6, 79795-9, 81554-6 ####KO LABORATORYCLIA [id number] [place] [address] [facility] [place] Sodium [Moles/Vol] 139 mmol/L Normal 136-144 [facility] Comment on above: Order Comment: Speci men Type: BLOOD SPECIMENOrdering Facility: [facility] Address: [address] [place] [address] Performed By: #### 2 157-6, 04146-1, 76868-9 ####OK LABORATORYCLIA [id number] [place] [id number] [place] Urea nitrogen [Mass/Vol] 34 mg/dL High 7-21 [facility] Comment on above: Order Comment: Speci men Type: BLOOD SPECIMENOrdering Facility: [facility] Address: [address] [place] [address] Performed By: #### 2 157-6, 75827-2, 86766-6 ####KO LABORATORYCLIA [id number] [place] [id number] [facility] ALLIED HEALTHon 07-11-2023 ALLIED HEALTH HNO ID: [id number] Author: DEJAN HERNANDEZ RT(R) Service: Nuclear Medicine [...] PATIENT PRESENTS WITH AN IMPLANTABLE OR ATTACHED FIELD TECHNICAL ASSISTANT: No CREATININE: Creatinine Date Value Ref Range [...] documentation PROCEDURE TYPE: NM Stress: 13.89 mCi [id number] was administered IV for Rest Imaging at 09:05 by [facility]. 35.4 mCi [id number] was administered IV for Stress Imaging at 09:50 by [facility]. PATIENT DISCHARGED TO: Floor A Diagnostic radioactive procedure has taken place, with no further precautions necessary other than routine body substance precautions. More information regarding radiation safety can be found using this link: [email or web address]%20Nuclear%20 [email or web address] SIGNATURE: RT Kevin(R) PATIENT NAME: Sandra Schmitz DATE: July 11, 2023 TIME: 10:09 AM PAGER/CONTACT #: [facility] CASE MGT INIT Alicia 2023 CASE MGT INIT TOMASA HNO ID: [id number] Author: LUX AREVALO LISW Service: ? Author Type: Physical Medicine Teacher Type: Care Mgt Initial Assessment Filed: 07/11/2023 [...] Current Advance Directive: Health Care Power of Aging Room Hand Current Living Arrangements and Support Lives with: [...] home, General wellness, Ambulate a little better [place] of Choice Explained: Are you interested in [...] 11, 2023 TIME: 11:24 AM CONTACT #: [phone] [facility] CBC W Auto Differential pane l (Bld)on 07-11-2023 Basophils (Bld) [#/Vol] 0.07 10*3/uL Normal <0.11 [facility] Comment on above: Order Comment: Speci men Type: BLOOD SPECIMENOrdering Facility: [facility] Address: [address] [place] [address] Performed By: #### 5 7021-8 ####KO LABORATORYCLIA [id number] [place] [address] [place] Basophils/100 WBC (Bld) 1.0 % Normal [facility] Comment on above: Order Comment: Speci men Type: BLOOD SPECIMENOrdering Facility: [facility] Address: [address] [place] [address] Performed By: #### 5 7021-8 ####KO LABORATORYCLIA [id number] [address] Differential cell count method Nom (Bld) Auto Normal [facility] Comment on above: Order Comment: Speci men Type: BLOOD SPECIMENOrdering Facility: [facility] Address: [address] [place] [address] Performed By: #### 5 7021-8 ####KO LABORATORYCLIA [id number] [place] [address] [place] Eosinophils (Bld) [#/Vol] 0.21 10*3/uL Normal <0.46 [facility] Comment on above: Order Comment: Speci men Type: BLOOD SPECIMENOrdering Facility: [facility] Address: [address] [place] [address] Performed By: #### 5 7021-8 ####KO LABORATORYCLIA [id number] [address] Eosinophils/100 WBC (Bld) 3.0 % Normal [facility] Comment on above: Order Comment: Speci men Type: BLOOD SPECIMENOrdering Facility: [facility] Address: [address] [place] [address] Performed By: #### 5 7021-8 ####KO LABORATORYCLIA [id number] [address] [place] Erythrocyte distribution width (RBC) [Ratio] 14.9 % Normal 11.5-15.0 [facility] Comment on above: Order Comment: Speci men Type: BLOOD SPECIMENOrdering Facility: [facility] Address: [address] [place] [address] Performed By: #### 5 7021-8 ####KO LABORATORYCLIA [id number] [address] [place] Hematocrit (Bld) [Volume fraction] 39.7 % Normal 36.0-46.0 [facility] Comment on above: Order Comment: Speci men Type: BLOOD SPECIMENOrdering Facility: [facility] Address: [address] [place] [address] Performed By: #### 5 7021-8 ####KO LABORATORYCLIA [id number] [address] [place] Hemoglobin (Bld) [Mass/Vol] 12.3 g/dL Normal 11.5-15.5 [facility] Comment on above: Order Comment: Speci men Type: BLOOD SPECIMENOrdering Facility: [facility] Address: [address] [place] [address] Performed By: #### 5 7021-8 ####KO LABORATORYCLIA [id number] [place] [address] [place] Immature granulocytes (Bld) [#/Vol] 0.03 10*3/uL Normal <0.10 [facility] Comment on above: Order Comment: Speci men Type: BLOOD SPECIMENOrdering Facility: [facility] Address: [address] [place] [address] Performed By: #### 5 7021-8 ####KO LABORATORYCLIA [id number] [address] [place] Immature granulocytes/100 WBC (Bld) 0.4 % Normal [facility] Comment on above: Order Comment: Speci men Type: BLOOD SPECIMENOrdering Facility: [facility] Address: [address] [place] [address] Performed By: #### 5 7021-8 ####KO LABORATORYCLIA [id number] [facility] [address] Lymphocytes (Bld) [#/Vol] 2.77 10*3/uL Normal 1.00-4.00 [facility] Comment on above: Order Comment: Speci men Type: BLOOD SPECIMENOrdering Facility: [facility] Address: [address] [place] [address] Performed By: #### 5 7021-8 ####KO LABORATORYCLIA [id number] [address] Lymphocytes/100 WBC (Bld) 39.9 % Normal [facility] Comment on above: Order Comment: Speci men Type: BLOOD SPECIMENOrdering Facility: [facility] Address: [address] [place] [address] Performed By: #### 5 7021-8 ####KO LABORATORYCLIA [id number] [address] MCH (RBC) [Entitic mass] 28.2 pg Normal 26.0-34.0 [facility] Comment on above: Order Comment: Speci men Type: BLOOD SPECIMENOrdering Facility: [facility] Address: [address] [place] [address] Performed By: #### 5 7021-8 ####KO LABORATORYCLIA [id number] [address] [place] [facility] MCHC (RBC) [Mass/Vol] 31.0 g/dL Normal 30.5-36.0 [facility] Comment on above: Order Comment: Speci men Type: BLOOD SPECIMENOrdering Facility: [facility] Address: [address] [place] [address] Performed By: #### 5 7021-8 ####KO LABORATORYCLIA [id number] [address] MCV (RBC) [Entitic vol] 91.1 fL Normal 80.0-100.0 [facility] Comment on above: Order Comment: Speci men Type: BLOOD SPECIMENOrdering Facility: [facility] Address: [address] [place] [address] Performed By: #### 5 7021-8 ####KO LABORATORYCLIA [id number] [place] [address] [place] Monocytes (Bld) [#/Vol] 0.60 10*3/uL Normal <0.87 [facility] Comment on above: Order Comment: Speci men Type: BLOOD SPECIMENOrdering Facility: [facility] Address: [address] [place] [address] Performed By: #### 5 7021-8 ####KO LABORATORYCLIA [id number] [place] [address] [place] Monocytes/100 WBC (Bld) 8.6 % Normal [facility] Comment on above: Order Comment: Speci men Type: BLOOD SPECIMENOrdering Facility: [facility] Address: [address] [place] [address] Performed By: #### 5 7021-8 ####KO LABORATORYCLIA [id number] [place] [address] [place] Neutrophils (Bld) [#/Vol] 3.26 10*3/uL Normal 1.45-7.50 [facility] Comment on above: Order Comment: Speci men Type: BLOOD SPECIMENOrdering Facility: [facility] Address: [address] [place] [address] Performed By: #### 5 7021-8 ####KO LABORATORYCLIA [id number] [place] [address] [place] Neutrophils/100 WBC (Bld) 47.1 % Normal [facility] Comment on above: Order Comment: Speci men Type: BLOOD SPECIMENOrdering Facility: [facility] Address: [address] [place] [address] Performed By: #### 5 7021-8 ####KO LABORATORYCLIA [id number] [place] [address] [place] Nucleated RBC (Bld) [#/Vol] 10*3/uL Normal <0.01 [facility] Comment on above: Order Comment: Speci men Type: BLOOD SPECIMENOrdering Facility: [facility] Address: [address] [place] [address] Performed By: #### 5 7021-8 ####KO LABORATORYCLIA [id number] [place] [address] [place] Nucleated RBC/100 WBC (Bld) [Ratio] 0.0 /100 WBC Normal [facility] Comment on above: Order Comment: Speci men Type: BLOOD SPECIMENOrdering Facility: [facility] Address: [address] [place] [address] Performed By: #### 5 7021-8 ####KO LABORATORYCLIA [id number] [place] [address] [place] Platelet mean volume (Bld) [Entitic vol] 10.2 fL Normal 9.0-12.7 [facility] Comment on above: Order Comment: Speci men Type: BLOOD SPECIMENOrdering Facility: [facility] Address: [address] [place] [address] Performed By: #### 5 7021-8 ####KO LABORATORYCLIA [id number] [place] [address] [place] Platelets (Bld) [#/Vol] 290 10*3/uL Normal 150-400 [facility] Comment on above: Order Comment: Speci men Type: BLOOD SPECIMENOrdering Facility: [facility] Address: [address] [place] [address] Performed By: #### 5 7021-8 ####KO LABORATORYCLIA [id number] [place] [address] [place] RBC (Bld) [#/Vol] 4.36 10*6/uL Normal 3.90-5.20 [facility] Comment on above: Order Comment: Speci men Type: BLOOD SPECIMENOrdering Facility: [facility] Address: [address] [place] [address] Performed By: #### 5 7021-8 ####KO LABORATORYCLIA [id number] [place] [address] [place] WBC (Bld) [#/Vol] 6.94 10*3/uL Normal 3.70-11.00 [facility] Comment on above: Order Comment: Speci men Type: BLOOD SPECIMENOrdering Facility: [facility] Address: [address] [place] [address] Performed By: #### 5 7021-8 ####LINCOLN LABORATORYCLIA [id number] [place] [address] [place] CK SerPl-cCncon 07-11-2023 CK [Catalytic activity/Vol] 49 U/L Normal 42-196 [facility] Comment on above: Order Comment: Speci men Type: BLOOD SPECIMENOrdering Facility: [facility] Address: [address] [place] [address] Performed By: #### 2 4362-6, 6, ####LINCOLN LABORATORYCLIA [id number] [place] [address] [place] Magnesium SerPl-mCncon 07-11 Magnesium [Mass/Vol] 2.0 mg/dL Normal 1.7-2.3 [facility] Comment on above: Order Comment: Speci men Type: BLOOD SPECIMENOrdering Facility: [facility] Address: [address] [place] [address] Performed By: #### 2 4362-6, 2156-10, ####LINCOLN LABORATORYCLIA [id number] [place] [address] [place] NM CARDIAC PERF STRESS/PHARM on 07-11-2023 NM CARDIAC PERF STRESS/PHARM * * *Final Report* * * DATE OF EXAM: Jul 11 2023 10:57AM SKIP 0006 - NM CARDIAC PERF STRESS/PHARM / PROCEDURE REASON: Chest pain/anginal equiv, intermediate CAD risk, not treadmill candidate * * * * Physician Interpretation * * * * Stress Seo Professional Report: [facility] Date of service: 07/11/2023 9:15:02 AM [...] later. See administered radiotracer and doses below. [facility] Date of service: 07/11/2023 9:15:02 AM [...] Final * * * Stress ECG Report: [facility] Date of service: 07/11/2023 9:15:02 AM Ordering physician: ÁLVARO LOBO resource recovery specialist: Oumou Piña Certified Tumor Registrar: Valery Sung Interpreting physician: Álvaro Lobo MD [...] 101 42 (more content not included)... Normal [facility] NURSING PROGon 07-11-2023 NURSING PROG HNO ID: [id number] Author: MISTY ASCENCIO, RN Service: Nursing Author Type: Registered Nurse Type: Nursing Progress Note Filed: 07/11/2023 14:37 Note Text: PATIENT EDUCATION HEART FAILURE PATIENT NAME: Sandra Schmitz PATIENT LOCATION: [place] [id number] SURVIVAL SKILLS: Low Sodium Diet Weight Monitoring [...] EF @ 29%. Follow Dr Oneill from [facility]. Brief overview of CHF, s/s and management [...] Cardiology Electronically Signed By: Misty Ascencio Normal [facility] Renal function 2000 panelon 07-11-2023 Albumin [Mass/Vol] 3.6 g/dL Low 3.9-4.9 [facility] Comment on above: Order Comment: Ernestinei men Type: BLOOD SPECIMENOrdering Facility: [facility] Address: [address] [place] [address] Performed By: #### 2 4362-6, 2156-10, ####LINCOLN LABORATORYCLIA [id number] [place] [id number] [place] Anion gap [Moles/Vol] 9 mmol/L Normal 9-18 [facility] Comment on above: Order Comment: Speci men Type: BLOOD SPECIMENOrdering Facility: [facility] Address: [address] [place] [address] Performed By: #### 2 4362-6, 2156-10, ####LINCOLN LABORATORYCLIA [id number] [place] [id number] [place] Calcium [Mass/Vol] 9.2 mg/dL Normal 8.5-10.2 [facility] Comment on above: Order Comment: Speci men Type: BLOOD SPECIMENOrdering Facility: [facility] Address: [address] [place] [id number] Performed By: #### 2 4362-6, 2156-10, ####KO LABORATORYCLIA [id number] [place] [address] [place] Chloride [Moles/Vol] 103 mmol/L Normal 97-105 [facility] Comment on above: Order Comment: Speci men Type: BLOOD SPECIMENOrdering Facility: [facility] Address: [address] [place] [address] Performed By: #### 2 4362-6, 2156-10, ####KO LABORATORYCLIA [id number] [place] [id number] [place] CO2 [Moles/Vol] 29 mmol/L Normal 22-30 [facility] Comment on above: Order Comment: Speci men Type: BLOOD SPECIMENOrdering Facility: [facility] Address: [address] [place] [address] Performed By: #### 2 4362-6, 2156-10, ####LINCOLN LABORATORYCLIA [id number] [place] [address] [place] Creatinine [Mass/Vol] 0.90 mg/dL Normal 0.58-0.96 [facility] Comment on above: Order Comment: Speci men Type: BLOOD SPECIMENOrdering Facility: [facility] Address: [address] [place] [address] Performed By: #### 2 4362-6, 2156-10, ####LINCOLN LABORATORYCLIA [id number] [address] OF [place] Creatinine and Glomerular filtration rate.predicted panel (S/P/Bld) 66 mL/min/1.73m??? Normal >=60 [facility] Comment on above: Order Comment: Speci men Type: BLOOD SPECIMENOrdering Facility: [facility] Address: [address] [place] [address] Result Comment: Aaron mated Glomerular Filtration Rate [...] By: #### 2 4362-6, 2156-10, ####KO LABORATORYCLIA [id number] [place] [address] [place] Glucose [Mass/Vol] 91 mg/dL Normal 74-99 [facility] Comment on above: Order Comment: [facility] Type: BLOOD SPECIMENOrdering Facility: [facility] Address: [address] [place] [address] Result Comment: The [place] Diabetes Association (ADA) provides guidance for cutoff [...] Standards of Medical Care in Diabetes 2016, [place] Diabetes Association. Diabetes Care. 2016.39(Suppl 1). Performed By: #### 2 4362-6, 2156-10, ####[facility] LABORATORYCLIA [id number] [place] [address] [place] Phosphate [Mass/Vol] 3.9 mg/dL Normal 2.7-4.8 [facility] Comment on above: Order Comment: Lenard jesus Type: BLOOD SPECIMENOrdering Facility: [facility] Address: [address] [place] [address] Performed By: #### 2 4362-6, 2156-10, ####LINCOLN LABORATORYCLIA [id number] [place] [address] [place] Potassium [Moles/Vol] 4.2 mmol/L Normal 3.7-5.1 [facility] Comment on above: Order Comment: Speci men Type: BLOOD SPECIMENOrdering Facility: [facility] Address: [address] [place], [place] [address] Performed By: #### 2 4362-6, 2156-10, ####KO LABORATORYCLIA [id number] [place] [id number] [facility] Sodium [Moles/Vol] 141 mmol/L Normal 136-144 [facility] Comment on above: Order Comment: Speci men Type: BLOOD SPECIMENOrdering Facility: [facility] Address: [address] [place] [address] Performed By: #### 2 4362-6, 2156-10, ####KO LABORATORYCLIA [id number] [place] [id number] [place] Urea nitrogen [Mass/Vol] 29 mg/dL High 7-21 [facility] Comment on above: Order Comment: Speci men Type: BLOOD SPECIMENOrdering Facility: [facility] Address: [address] [place] [address] Performed By: #### 2 4362-6, 2156-10, ####KO LABORATORYCLIA [id number] [place] [id number] [facility] ALLIED HEALTHon 07-10-2023 ALLIED HEALTH HNO ID: [id number] Author: DANIELLE ESTRELLA RT(Marlee) Service: ? Author [...] PATIENT PRESENTS WITH AN IMPLANTABLE OR ATTACHED FIELD TECHNICAL ASSISTANT: No RADIOLOGY DEPARTMENT: General X-ray: Exam(s) Completed: Chest X-Ray PERIPHERAL IV DATA: Not applicable SIGNED BY: RT Maciel(R) July 10, 2023 8:12 AM Normal [facility] CBC W Auto Differential pane l (Bld)on 07-10-2023 Basophils (Bld) [#/Vol] 0.11 10*3/uL High <0.11 [facility] Comment on above: Order Comment: Speci men Type: BLOOD SPECIMENOrdering Facility: [facility] Address: [address] [place] [address] Performed By: #### 5 7021-8 ####KO LABORATORYCLIA [id number] [place] [address] [place] Basophils/100 WBC (Bld) 1.3 % Normal [facility] Comment on above: Order Comment: Speci men Type: BLOOD SPECIMENOrdering Facility: [facility] Address: [address] [place] [address] Performed By: #### 5 7021-8 ####KO LABORATORYCLIA [id number] [place] [address] [place] Differential cell count method Nom (Bld) Auto Normal [facility] Comment on above: Order Comment: Speci men Type: BLOOD SPECIMENOrdering Facility: [facility] Address: [address] [place] [address] Performed By: #### 5 7021-8 ####KO LABORATORYCLIA [id number] [place] [address] [place] Eosinophils (Bld) [#/Vol] 0.26 10*3/uL Normal <0.46 [facility] Comment on above: Order Comment: Speci men Type: BLOOD SPECIMENOrdering Facility: [facility] Address: [address] [place] [address] Performed By: #### 5 7021-8 ####KO LABORATORYCLIA [id number] [place] [address] [place] Eosinophils/100 WBC (Bld) 3.0 % Normal [facility] Comment on above: Order Comment: Speci men Type: BLOOD SPECIMENOrdering Facility: [facility] Address: [address] [place] [address] Performed By: #### 5 7021-8 ####KO LABORATORYCLIA [id number] [place] [address] [place] Erythrocyte distribution width (RBC) [Ratio] 14.8 % Normal 11.5-15.0 [facility] Comment on above: Order Comment: Speci men Type: BLOOD SPECIMENOrdering Facility: [facility] Address: [address] [place] [address] Performed By: #### 5 7021-8 ####KO LABORATORYCLIA [id number] [place] [address] [place] Hematocrit (Bld) [Volume fraction] 42.8 % Normal 36.0-46.0 [facility] Comment on above: Order Comment: Speci men Type: BLOOD SPECIMENOrdering Facility: [facility] Address: [address] [place] [address] Performed By: #### 5 7021-8 ####KO LABORATORYCLIA [id number] [place] [address] [place] Hemoglobin (Bld) [Mass/Vol] 14.0 g/dL Normal 11.5-15.5 [facility] Comment on above: Order Comment: Speci men Type: BLOOD SPECIMENOrdering Facility: [facility] Address: [address] [place] [address] Performed By: #### 5 7021-8 ####KO LABORATORYCLIA [id number] [place] [address] [place] Immature granulocytes (Bld) [#/Vol] 0.05 10*3/uL Normal <0.10 [facility] Comment on above: Order Comment: Speci men Type: BLOOD SPECIMENOrdering Facility: [facility] Address: [address] [place] [address] Performed By: #### 5 7021-8 ####KO LABORATORYCLIA [id number] [place] [address] [place] Immature granulocytes/100 WBC (Bld) 0.6 % Normal [facility] Comment on above: Order Comment: Speci men Type: BLOOD SPECIMENOrdering Facility: [facility] Address: [address] [place] [address] Performed By: #### 5 7021-8 ####KO LABORATORYCLIA [id number] [address] Lymphocytes (Bld) [#/Vol] 3.08 10*3/uL Normal 1.00-4.00 [facility] Comment on above: Order Comment: Speci men Type: BLOOD SPECIMENOrdering Facility: [facility] Address: [address] [place] [address] Performed By: #### 5 7021-8 ####KO LABORATORYCLIA [id number] [address] Lymphocytes/100 WBC (Bld) 35.7 % Normal [facility] Comment on above: Order Comment: Speci men Type: BLOOD SPECIMENOrdering Facility: [facility] Address: [address] [place] [address] Performed By: #### 5 7021-8 ####KO LABORATORYCLIA [id number] [address] MCH (RBC) [Entitic mass] 29.9 pg Normal 26.0-34.0 [facility] Comment on above: Order Comment: Speci men Type: BLOOD SPECIMENOrdering Facility: [facility] Address: [address] [place] [address] Performed By: #### 5 7021-8 ####KO LABORATORYCLIA [id number] [address] MCHC (RBC) [Mass/Vol] 32.7 g/dL Normal 30.5-36.0 [facility] Comment on above: Order Comment: Speci men Type: BLOOD SPECIMENOrdering Facility: [facility] Address: [address] [place] [address] Performed By: #### 5 7021-8 ####KO LABORATORYCLIA [id number] [address] MCV (RBC) [Entitic vol] 91.5 fL Normal 80.0-100.0 [facility] Comment on above: Order Comment: Speci men Type: BLOOD SPECIMENOrdering Facility: [facility] Address: [address] [place] [address] Performed By: #### 5 7021-8 ####KO LABORATORYCLIA [id number] [place] [address] [place] Monocytes (Bld) [#/Vol] 0.68 10*3/uL Normal <0.87 [facility] Comment on above: Order Comment: Speci men Type: BLOOD SPECIMENOrdering Facility: [facility] Address: [address] [place] [address] Performed By: #### 5 7021-8 ####KO LABORATORYCLIA [id number] [place] [address] [place] Monocytes/100 WBC (Bld) 7.9 % Normal [facility] Comment on above: Order Comment: Speci men Type: BLOOD SPECIMENOrdering Facility: [facility] Address: [address] [place] [address] Performed By: #### 5 7021-8 ####KO LABORATORYCLIA [id number] [place] [address] [place] Neutrophils (Bld) [#/Vol] 4.45 10*3/uL Normal 1.45-7.50 [facility] Comment on above: Order Comment: Speci men Type: BLOOD SPECIMENOrdering Facility: [facility] Address: [address] [place] [address] Performed By: #### 5 7021-8 ####KO LABORATORYCLIA [id number] [place] [address] [place] Neutrophils/100 WBC (Bld) 51.5 % Normal [facility] Comment on above: Order Comment: Speci men Type: BLOOD SPECIMENOrdering Facility: [facility] Address: [address] [place] [address] Performed By: #### 5 7021-8 ####KO LABORATORYCLIA [id number] [place] [address] [place] Nucleated RBC (Bld) [#/Vol] 10*3/uL Normal <0.01 [facility] Comment on above: Order Comment: Speci men Type: BLOOD SPECIMENOrdering Facility: [facility] Address: [address] [place] [address] Performed By: #### 5 7021-8 ####KO LABORATORYCLIA [id number] [place] [address] [place] Nucleated RBC/100 WBC (Bld) [Ratio] 0.0 /100 WBC Normal [facility] Comment on above: Order Comment: Speci men Type: BLOOD SPECIMENOrdering Facility: [facility] Address: [address] [place] [address] Performed By: #### 5 7021-8 ####KO LABORATORYCLIA [id number] [place] [address] [place] Platelet mean volume (Bld) [Entitic vol] 10.0 fL Normal 9.0-12.7 [facility] Comment on above: Order Comment: Speci men Type: BLOOD SPECIMENOrdering Facility: [facility] Address: [address] [place] [address] Performed By: #### 5 7021-8 ####KO LABORATORYCLIA [id number] [place] [address] [place] Platelets (Bld) [#/Vol] 313 10*3/uL Normal 150-400 [facility] Comment on above: Order Comment: Speci men Type: BLOOD SPECIMENOrdering Facility: [facility] Address: [address] [place] [address] Performed By: #### 5 7021-8 ####KO LABORATORYCLIA [id number] [place] [address] [place] RBC (Bld) [#/Vol] 4.68 10*6/uL Normal 3.90-5.20 [facility] Comment on above: Order Comment: Speci men Type: BLOOD SPECIMENOrdering Facility: [facility] Address: [address] [place] [address] Performed By: #### 5 7021-8 ####KO LABORATORYCLIA [id number] [place] [address] [place] WBC (Bld) [#/Vol] 8.63 10*3/uL Normal 3.70-11.00 [facility] Comment on above: Order Comment: Speci men Type: BLOOD SPECIMENOrdering Facility: [facility] Address: [address] [place] [address] Performed By: #### 5 7021-8 ####LIN[facility] LABORATORYCLIA [id number] [address] [place] CK TOTAL AND CK-MBon 024 CK [Catalytic activity/Vol] 57 U/L Normal 42-196 [facility] Comment on above: Order Comment: Speci men Type: BLOOD SPECIMENOrdering Facility: [facility] Address: [address] [place] [address] Performed By: #### 3 084-1, 2777-1, [id number], , CKCKMB ####LIN[facility] LABORATORYCLIA [id number] [address] CK.MB [Mass/Vol] 2.3 ng/mL Normal <4.4 [facility] Comment on above: Order Comment: Speci men Type: BLOOD SPECIMENOrdering Facility: [facility] Address: [address] [place] [address] Performed By: #### 3 084-1, 2777-1, [id number], , CKCKMB ####LIN[facility]N LABORATORYCLIA [id number] [address] CK.MB [Ratio] Normal [facility] Comment on above: Order Comment: Speci men Type: BLOOD SPECIMENOrdering Facility: [facility] Address: [address] [place] [address] Result Comment: CK M B % not reported with CK <100 U/L. Performed By: #### 3 084-1, 2777-1, [id number], , CKCKMB ####LINCOLN LABORATORYCLIA [id number] [address] [place] CONSULTon 07-10-2023 CONSULT HNO ID: [id number] Author: ÁLVARO LOBO MD Service: Cardiovascular Medicine Author Type: Physician Type: Consults Filed: 07/10/2023 15:09 Note Text: Heart and Vascular [place] [facility] and Lizy Eduardo Department of Cardiovascular Medicine SECTION OF [facility] Consultation Note Name: Sandra Schmitz : 1945 [...] grade I DD, trace MR, TR, mild WI, asc Ao 3.6c m, atrial septal aneurysm Cardiac cath 10/2021: mod LAD, D1 prox 40%, mild RCA disease dominant, EF 35%. She was seen by EP on 06/12/23 and was planned for RN RENAL-D. She follows with Dr. Oneill, last seen in clinic on 06/04/23. PAST MEDICAL HISTORY Diagnosis Date Acute acalculous cholecystitis 05/30/2020 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 09/22/2020 Acute on chronic systolic CHF (congestive heart failure) ([facility]) 05/03/2020 Aspiration pneumonia (HCC) 05/30/2020 Chest pain [...] Numbness, Tingli (more content not included)... Normal [facility] Comprehensive metabolic 2000 panelon 07-10-2023 Albumin [Mass/Vol] 4.2 g/dL Normal 3.9-4.9 [facility] Comment on above: Order Comment: Lenard jesus Type: BLOOD SPECIMENOrdering Facility: [facility] Address: [address] [place] [address] Performed By: #### 3 3762-6, 02443-8, [id number] ####KO LABORATORYCLIA [id number] [address] STATES OF [facility] ALP [Catalytic activity/Vol] 61 U/L Normal 34-123 [facility] Comment on above: Order Comment: Lenard jesus Type: BLOOD SPECIMENOrdering Facility: [facility] Address: [address] [place] [address] Performed By: #### 3 3762-6, 75575-8, [id number] ####KO LABORATORYCLIA [id number] [address] STATES OF [facility] ALT [Catalytic activity/Vol] 12 U/L Normal 7-38 [facility] Comment on above: Order Comment: Lenard jesus Type: BLOOD SPECIMENOrdering Facility: [facility] Address: [address] [place] [address] Performed By: #### 3 3762-6, 69598-7, [id number] ####KO LABORATORYCLIA [id number] [place] [address] [place] [facility] Anion gap [Moles/Vol] 9 mmol/L Normal 9-18 [facility] Comment on above: Order Comment: Speci men Type: BLOOD SPECIMENOrdering Facility: [facility] Address: [address] [place] [address] Performed By: #### 3 3762-6, 28094-8, [id number] ####KO LABORATORYCLIA [id number] [place] [address] [place] AST [Catalytic activity/Vol] 17 U/L Normal 13-35 [facility] Comment on above: Order Comment: Speci men Type: BLOOD SPECIMENOrdering Facility: [facility] Address: [address] [place] [address] Performed By: #### 3 3762-6, 98086-7, [id number] ####KO LABORATORYCLIA [id number] [place] [address] [place] Bilirubin [Mass/Vol] 0.3 mg/dL Normal 0.2-1.3 [facility] Comment on above: Order Comment: Speci men Type: BLOOD SPECIMENOrdering Facility: [facility] Address: [address] [place] [address] Performed By: #### 3 3762-6, 92409-2, [id number] ####KO LABORATORYCLIA [id number] [address] [place] Calcium [Mass/Vol] 9.9 mg/dL Normal 8.5-10.2 [facility] Comment on above: Order Comment: Speci men Type: BLOOD SPECIMENOrdering Facility: [facility] Address: [address] [place] [address] Performed By: #### 3 3762-6, 16103-7, [id number] ####KO LABORATORYCLIA [id number] [place] [address] [place] Chloride [Moles/Vol] 104 mmol/L Normal 97-105 [facility] Comment on above: Order Comment: Speci men Type: BLOOD SPECIMENOrdering Facility: [facility] Address: [address] [place] [address] Performed By: #### 3 3762-6, 53419-1, [id number] ####KO LABORATORYCLIA [id number] [place] [address] [place] [facility] CO2 [Moles/Vol] 28 mmol/L Normal 22-30 [facility] Comment on above: Order Comment: Lenard jesus Type: BLOOD SPECIMENOrdering Facility: [facility] Address: [address] [place] [address] Performed By: #### 3 3762-6, 88948-0, [id number] ####KO LABORATORYCLIA [id number] [place] [address] [place] Creatinine [Mass/Vol] 0.89 mg/dL Normal 0.58-0.96 [facility] Comment on above: Order Comment: Speci men Type: BLOOD SPECIMENOrdering Facility: [facility] Address: [address] [place] [address] Performed By: #### 3 3762-6, 03468-1, [id number] ####KO LABORATORYCLIA [id number] [address] Creatinine and Glomerular filtration rate.predicted panel (S/P/Bld) 67 mL/min/1.73m??? Normal >=60 [facility] Comment on above: Order Comment: Lenard jesus Type: BLOOD SPECIMENOrdering Facility: [facility] Address: [address] [place] [address] Result Comment: Aaron mated Glomerular Filtration Rate [...] actual GFR. Performed By: #### 3 3762-6, 78615-9, [id number] ####KO LABORATORYCLIA [id number] [address] [place] Glucose [Mass/Vol] 105 mg/dL High 74-99 [facility] Comment on above: Order Comment: Speci men Type: BLOOD SPECIMENOrdering Facility: [facility] Address: [address] [place] [address] Result Comment: The [place] Diabetes Association (ADA) provides guidance for cutoff [...] Standards of Medical Care in Diabetes 2016, [place] Diabetes [employer]. Diabetes Care. 2016.39(Suppl 1). Performed By: #### 3 3762-6, 32425-3, [id number] ####KO LABORATORYCLIA [id number] [place] [address] [place] Potassium [Moles/Vol] 4.3 mmol/L Normal 3.7-5.1 [facility] Comment on above: Order Comment: Lenard jesus Type: BLOOD SPECIMENOrdering Facility: [facility] Address: [address] [place] [address] Performed By: #### 3 3762-6, 47212-7, [id number] ####KO LABORATORYCLIA [id number] [place] [address] [place] Protein [Mass/Vol] 7.5 g/dL Normal 6.3-8.0 [facility] Comment on above: Order Comment: Lenard jesus Type: BLOOD SPECIMENOrdering Facility: [facility] Address: [address] [place] [address] Performed By: #### 3 3762-6, 50503-1, [id number] ####KO LABORATORYCLIA [id number] [place] [address] [place] Sodium [Moles/Vol] 141 mmol/L Normal 136-144 [facility] Comment on above: Order Comment: Lenard jesus Type: BLOOD SPECIMENOrdering Facility: [facility] Address: [address] [place] [address] Performed By: #### 3 3762-6, 75026-0, [id number] ####KO LABORATORYCLIA [id number] [place] [address] [facility] Urea nitrogen [Mass/Vol] 33 mg/dL High 7-21 [facility] Comment on above: Order Comment: Speci men Type: BLOOD SPECIMENOrdering Facility: [facility] Address: [address] [place] [id number] Performed By: #### 3 3762-6, 07837-7, [id number] ####LINCOLN LABORATORYCLIA [id number] [place] [id number] [facility] ED NOTEon 07-10-2023 ED NOTE HNO ID: [id number] Author: OLIVERIO RITTER, CARO Service: Nursing Author Type: Registered Nurse Type: ED Notes Filed: 07/10/2023 13:06 Note Text: Report called to 4S RN at this time. [facility] ED NOTE HNO ID: [id number] Author: OLIVERIO RITTER RN Service: Nursing Author Type: Registered Nurse Type: ED Notes Filed: 07/10/2023 12:50 Note Text: Dr. Sams rounding on patient at bedside at this time. [facility] ED NOTE HNO ID: [id number] Author: OLIVERIO RITTER RN Service: Nursing Author Type: Registered Nurse Type: ED Notes Filed: 07/10/2023 12:13 Note Text: Room air ambulatory pulse oximetry obtained at 92-93%. Patient returned to bed. Patient tolerated fairly. She does endorse that she has unsteadiness and dizziness when ambulating. SPO2 90% on RA when returned to bed. Discussed with Dr. Medina at this time. [facility] ED NOTE HNO ID: [id number] Author: BENTLEY PATTON RN Service: ? Author Type: Registered Nurse Type: ED Notes Filed: 07/10/2023 07:50 Note Text: Pt spo2 noted to be 89-90% on room air. Placed on O2, 2lpm via NC. Dr. Medina aware. [facility] ED NOTE HNO ID: [id number] Author: MARY LOU LIGHT, CARO Service: ? Author Type: Registered Nurse Type: ED Notes Filed: 07/10/2023 07:17 Note Text: Chest pressure woke her up out of sleep at approx 0430 C/O chest pressure 6/10 [facility] ED PROV NOTEon 07-10-2023 ED PROV NOTE HNO ID: [id number] Author: JIM MEDINA MD Service: ? Author [...] Mouth/Throat: M (more content not included)... Normal [facility] EKGon 07-10-2023 Electrocardiogram Ventricular Rate : 7 2 BPM Atrial Rate : 72 BPM P-R Interval : 134 ms QRS Duration : 172 ms Q-T Interval : 424 ms QTC Calculation(Bazett) : 464 ms Calculated P [place] : 39 degrees Calculated R [place] : -10 degrees Calculated T [place] : 153 degrees NORMAL SINUS RHYTHM LEFT BUNDLE BRANCH BLOCK ABNORMAL ECG 716 Confirmed by MD MEDINA MICHAEL ([id number]), technical editor Alyssa Russell ([id number]) on 07/10/2023 3:39:44 PM NAME : SANDRA SCHMITZ PID : [id number] : 1945 Gender : Female Race : ORD : Procedure Date : Jul 10 2023 07:12:14 Edit Date : Jul 10 2023 15:39:46 Diagnosis: NORMAL SINUS RHYTHM LEFT BUNDLE BRANCH BLOCK ABNORMAL ECG 716 Confirmed by MD MEDINA MICHAEL ([id number]), technical editor Alyssa Russell ([id number]) on 07/10/2023 3:39:44 PM Test Reason : Location : 1 : ER ED Overread By : MD MEDINA MICHAEL Edited By : Alyssa Russell Referred By : , Acquired by : Terrie AMADOR [facility] HIGH SENSITIVITY TROPONIN T (INITIAL)on 07-10-2023 Troponin T.cardiac High sensitivity method [Mass/Vol] 25 ng/L High <12 [facility] Comment on above: Order Comment: Speci men Type: BLOOD SPECIMENOrdering Facility: [facility] Address: [address] [place] [address] Result Comment: When assessing risk for acute [...] day MACE. Performed By: #### 3 3762-6, 95945-4, [id number] ####KO LABORATORYCLIA [id number] [place] [address] [place] HIGH SENSITIVITY TROPONIN T (SECOND)on 07-10-2023 Troponin T.cardiac High sensitivity method [Mass/Vol] 25 ng/L High <12 [facility] Comment on above: Order Comment: Lenard jesus Type: BLOOD SPECIMENOrdering Facility: [facility] Address: [address] [place] [address] Result Comment: When assessing risk for acute [...] 30 day MACE. Performed By: #### L [id number] ####KO LABORATORYCLIA [id number] [place] [address] [place] HIGH SENSITIVITY TROPONIN T (THIRD) 3 HRS AFTER INITIALon 07-10-2023 Troponin T.cardiac High sensitivity method [Mass/Vol] 24 ng/L High <12 [facility] Comment on above: Order Comment: Lenard jesus Type: BLOOD SPECIMENOrdering Facility: [facility] Address: [address] [place] [address] Result Comment: When assessing risk for acute [...] MACE. Performed By: #### 3 084-1, 2777-1, [id number], 77549-7, CKCKMB ####KO LABORATORYCLIA [id number] [place] [address] [place] HISTORY PHYSICALon HISTORY PHYSICAL HNO ID: [id number] Author: REMINGTON CAI MD Service: Hospital Medicine Author Type: Physician Type: H&P Filed: 07/10/2023 13:52 Note Text: DEPARTMENT OF HOSPITAL MEDICINE HISTORY AND PHYSICAL EXAM SERVICE DATE: 07/10/2023 SERVICE TIME: 1:49 PM Hospital Medicine/Primary Attending: Remington Cai MD NIGHT AND WEEKEND COVERAGE: [place] COVERAGE: Nights: [phone], please page [facility] Hospitalist Night coverage pager [phone]. Admission date: 07/10/2023 MEDICAL DECISION MAKING Reason for Admission: Chest pain Reviewed notes: Interpreted labs: Interpreted imaging indpendently: Interpreted EKG independently: See EKG interpretation below. ASSESSMENT/PLAN Chest c-for-lkitamjkwevt with elevated left hemidiaphragm and bibasilar atelectasis [...] fibrillation. She has seen Dr. Greenfield the manager secondary. She is to be scheduled for pacer [...] S1: decreased (more content not included)... Normal [facility] Magnesium [Mass/Vol] 2.0 mg/dL Normal 1.7-2.3 [facility] Comment on above: Order Comment: [facility] Type: BLOOD SPECIMENOrdering Facility: [facility] Address: [address] [place] [address] Performed By: #### 3 084-1, 2777-1, [id number], 14261-8, CKCKMB ####[place] LABORATORYCLIA [id number] [place] [address] [place] NT-proBNP [facility] Natriuretic peptide.B prohormone N-Terminal [Mass/Vol] 3171 pg/mL High <450 [facility] Comment on above: Order Comment: [facility] Type: BLOOD SPECIMENOrdering Facility: [facility] Address: [address] [place] [address] Performed By: #### 3 3762-6, 51725-2, [id number] ####[place] LABORATORYCLIA [id number] [place] [id number] [place] [facility] Phosphate [Mass/Vol] 3.6 mg/dL Normal 2.7-4.8 [facility] Comment on above: Order Comment: Speci men Type: BLOOD SPECIMENOrdering Facility: [facility] Address: [address] [place] [address] Performed By: #### 3 084-1, 2777-1, [id number], 49267-1, CKCKMB ####[place] LABORATORYCLIA [id number] [address] Urate SerPl-mCncon Urate [Mass/Vol] 9.1 mg/dL High 2.5-6.6 [facility] Comment on above: Order Comment: Speci men Type: BLOOD SPECIMENOrdering Facility: [facility] Address: [address] [place] [address] Performed By: #### 3 084-1, 2777-1, [id number], 87584-5, CKCKMB ####[place] LABORATORYCLIA [id number] [address] Urinalysis complete panel (U )on 07-10-2023 Bacteria LM.HPF (Urine sed) [#/Area] Few Abnormal None Seen [facility] Comment on above: Order Comment: Speci men Type: URINE SPECIMENOrdering Facility: [facility] Address: [address] [place] [address] Performed By: #### 2 4356-8 ####[place] LABORATORYCLIA [id number] [address] Bilirubin Ql (U) Negative Normal Negative [facility] Comment on above: Order Comment: Speci men Type: URINE SPECIMENOrdering Facility: [facility] Address: [address] [place] [address] Performed By: #### 2 4356-8 ####[place] LABORATORYCLIA [id number] [address] Clarity (Unsp spec) Clear Normal Clear [facility] Comment on above: Order Comment: Speci men Type: URINE SPECIMENOrdering Facility: [facility] Address: [address] [place] [address] Performed By: #### 2 4356-8 ####KO LABORATORYCLIA [id number] [place] [address] [place] Color (U) Yellow Normal Yellow [facility] Comment on above: Order Comment: Speci men Type: URINE SPECIMENOrdering Facility: [facility] Address: [address] [place] [address] Performed By: #### 2 4356-8 ####KO LABORATORYCLIA [id number] [place] [address] [place] Epithelial cells LM.HPF (Urine sed) [#/Area] Few Normal [facility] Comment on above: Order Comment: Speci men Type: URINE SPECIMENOrdering Facility: [facility] Address: [address] [place] [address] Performed By: #### 2 4356-8 ####KO LABORATORYCLIA [id number] [address] [place] Glucose Test strip (U) [Mass/Vol] Negative Normal Negative [facility] Comment on above: Order Comment: Speci men Type: URINE SPECIMENOrdering Facility: [facility] Address: [address] [place] [address] Performed By: #### 2 4356-8 ####KO LABORATORYCLIA [id number] [address] [place] Hemoglobin Ql (U) Negative Normal Negative [facility] Comment on above: Order Comment: Speci men Type: URINE SPECIMENOrdering Facility: [facility] Address: [address] [place] [address] Performed By: #### 2 4356-8 ####KO LABORATORYCLIA [id number] [place] [address] [place] Ketones Ql (U) Negative Normal Negative [facility] Comment on above: Order Comment: Speci men Type: URINE SPECIMENOrdering Facility: [facility] Address: [facility] [place] [address] Performed By: #### 2 4356-8 ####KO LABORATORYCLIA [id number] [address] [place] Leukocyte esterase Test strip Ql (U) Negative Normal Negative [facility] Comment on above: Order Comment: Speci men Type: URINE SPECIMENOrdering Facility: [facility] Address: [address] [place] [address] Performed By: #### 2 4356-8 ####KO LABORATORYCLIA [id number] [place] [address] [place] Nitrite Ql (U) Negative Normal Negative [facility] Comment on above: Order Comment: Speci men Type: URINE SPECIMENOrdering Facility: [facility] Address: [address] [place] [address] Performed By: #### 2 4356-8 ####KO LABORATORYCLIA [id number] [place] [address] [place] pH (U) 6.5 [pH] Normal 5.0-8.0 [facility] Comment on above: Order Comment: Speci men Type: URINE SPECIMENOrdering Facility: [facility] Address: [address] [place] [address] Performed By: #### 2 4356-8 ####KO LABORATORYCLIA [id number] [place] [address] [place] Protein (U) [Mass/Vol] Negative Normal Negative [facility] Comment on above: Order Comment: Speci men Type: URINE SPECIMENOrdering Facility: [facility] Address: [address] [place] [address] Performed By: #### 2 4356-8 ####KO LABORATORYCLIA [id number] [place] [address] [place] RBC LM.HPF (Urine sed) [#/Area] 0-3 /HPF Normal 0-3 /HPF [facility] Comment on above: Order Comment: Speci men Type: URINE SPECIMENOrdering Facility: [facility] Address: [address] [place] [address] Performed By: #### 2 4356-8 ####KO LABORATORYCLIA [id number] [place] [address] [place] Specific gravity (U) [Rel density] <=1.005 Low 1.005-1.030 [facility] Comment on above: Order Comment: Speci men Type: URINE SPECIMENOrdering Facility: [facility] Address: [address] [place] [address] Performed By: #### 2 4356-8 ####KO LABORATORYCLIA [id number] [address] Urobilinogen Ql (U) 0.2 EU/dL Normal 0.2-1.0 EU/dL [facility] Comment on above: Order Comment: Speci men Type: URINE SPECIMENOrdering Facility: [facility] Address: [address] [place] [address] Performed By: #### 2 4356-8 ####[place] LABORATORYCLIA [id number] [address] [place] WBC LM.HPF (Urine sed) [#/Area] 0-5 /HPF Normal 0-5 /HPF [facility] Comment on above: Order Comment: Speci men Type: URINE SPECIMENOrdering Facility: [facility] Address: [address] [place] [address] Performed By: #### 2 4356-8 ####[facility] LABORATORYCLIA [id number] [address] OF [facility] XR CHEST 2V FRONTAL/LATon XR CHEST [...] tissues: Unremarkable. IMPRESSION: No acute radiographic abnormality. Tricot Knitter: KEYANA Transcribe Date/Time: Jul 10 2023 8:19A Dictated by : YESENIA GUZMAN MD This examination was interpreted and the report reviewed and electronically signed by: YESENIA GUZMAN MD on Jul 10 2023 8:20AM EST [id number] [facility] 06-12-2023 [facility] Office Visit (AGCARD POB) ----- SANDRA SCHMITZ ([id number]) 1945 [address]* Date Time Provider Department 06/12/23 3:20 PM [facility]PO[facility] During your visit today, we recorded the following information about you: Pulse Blood pressure Weight Height 68/minute 115/74 86.2 kg 1.6 m Randa Smith MA 06/12/2023 4:02 PM Signed No cardiac complaints today. FELIPE Rios Sergey Aleksandrovich, MD 06/12/2023 4:02 PM Signed [facility] SECTION OF CARDIAC PACING and ELECTROPHYSIOLOGY OUTPATIENT VISIT DATE June 12, 2023 OUTPATIENT VISIT TYPE NEW PRIMARY CARE PHYSICIAN: Mandeep Houser [phone] [phone] REFERRING PHYSICIAN: Santo Oneill MD. HISTORY OF PRESENT ILLNESS: 77-year-old female with history of nonischemic cardiomyopathy, severe LV systolic function, LVEF of 30% despite GDMT, LBBB with QRS of 170 ms, was referred for consideration of RN RENAL-D system implantation for prevention of sudden cardiac [...] on chronic systolic CHF (congestive heart failure) ([facility]) 05/03/2020 Aspiration pneumonia ([facility]) 05/30/2020 Chest pain 05/03/2020 Chest pressure 01/23/2013 Chronic diastolic congestive heart failure ([facility]) 02/14/2021 Clostridium difficile diarrhea 09/28/2020 Complete uterovaginal prolapse Cystocele, midline Essential hypertension 06/14/2020 Homozygous Factor V Leiden mutation ([facility]) 05/03/2020 Hypothyroidism IBS (irritable bowel syndrome) 01/23/2013 [...] nonspecific parenchymal changes in left lung base. Tricot Knitter: KEAYNA Transcribe Date/Time: May 20 2023 10:19A Dictated by : KRISHNA CRUZ MD This examination was interpreted and the report reviewed and electronically signed by: KRISHNA CRUZ MD on May 20 2023 10:20AM [facility] DIVISION OF RADIOLOGY * * *Final Report* [...] soft tissues: Unremarkable. DIVISION OF RADIOLOGY Provider, [facility] - 05/20/2023 * * *Final Report* * [...] nonspecific parenchymal changes in left lung base. Tricot Knitter: PSCB Transcribe Date/Time: May 20 2023 10:19A Dictated by : KRISHNA CRUZ MD This examination was interpreted and the report reviewed and electronically signed by: KRISHNA CRUZ MD on May 20 2023 10:20AM EST [facility] XR Chest PA and LateralOrder ed By: Cc Provider on 05-20-2023 [facility] XR Chest PA and Lateralon Radiology Study observation (narrative) [facility] XR CHEST 2V FRONTAL/LATon [facility] STREP A MOLECULAR (POC)on Procedural Control Valid [facility] Strep A (POCT) Negative Negative [facility] CT ABD/PEL W IVCONon 023 [facility] DXA-AXIAL SKELETONon 023 [facility] VITAMIN D 25 HYDROXYon 07-22 25-hydroxyvitamin D3 [Mass/Vol] 45.2 ng/mL 31.0 - 80.0 ng/mL [facility] CBC panel Auto (Bld)on 07-21 Erythrocyte distribution width (RBC) [Ratio] 14.2 % 11.5 - 15.0 % [facility] Hematocrit (Bld) [Volume fraction] 41.8 % 36.0 - 46.0 % [facility] Hemoglobin (Bld) [Mass/Vol] 13.1 g/dL 11.5 - 15.5 g/dL [facility] MCH (RBC) [Entitic mass] 29.3 pg 26.0 - 34.0 pg [facility] MCHC (RBC) [Mass/Vol] 31.3 g/dL 30.5 - 36.0 g/dL [facility] MCV (RBC) [Entitic vol] 93.5 fL 80.0 - 100.0 fL [facility] Nucleated RBC (Bld) [#/Vol] <0.01 k/uL [facility] Platelet mean volume (Bld) [Entitic vol] 10.6 fL 9.0 - 12.7 fL [facility] Platelets (Bld) [#/Vol] 346 10*3/uL 150 - 400 k/uL [facility] RBC (Bld) [#/Vol] 4.47 10*6/uL 3.90 - 5.2 0 m/uL [facility] WBC (Bld) [#/Vol] 9.77 10*3/uL 3.70 - 11.00 k/uL [facility] Comprehensive metabolic 2000 panelon 07-21-2022 Albumin [Mass/Vol] 4.2 g/dL 3.9 - 4.9 g/dL [facility] ALP [Catalytic activity/Vol] 61 U/L 34 - 123 U/L [facility] ALT [Catalytic activity/Vol] 12 U/L 7 - 38 U/L [facility] Anion gap [Moles/Vol] 8 mmol/L Low 9 - 18 mmol/L [facility] AST [Catalytic activity/Vol] 15 U/L 13 - 35 U/L [facility] Bilirubin [Mass/Vol] 0.6 mg/dL 0.2 - 1 .3 mg/dL [facility] Calcium [Mass/Vol] 9.6 mg/dL 8.5 - 10. 2 mg/dL [facility] Chloride [Moles/Vol] 106 mmol/L High 97 - 10 5 mmol/L [facility] CO2 [Moles/Vol] 28 mmol/L 22 - 30 mmol/L [facility] Creatinine [Mass/Vol] 0.75 mg/dL 0.58 - 0.96 mg/dL [facility] Estimated Glomerular Filtration Rate 83 mL/min/1.73m >=60 mL/min/1.73 m [facility] Glucose [Mass/Vol] 68 mg/dL Low 74 - 99 mg/dL [facility] Potassium [Moles/Vol] 4.3 mmol/L 3.7 - 5.1 mmol/L [facility] Protein [Mass/Vol] 7.0 g/dL 6.3 - 8.0 g/dL [facility] Sodium [Moles/Vol] 142 mmol/L 136 - 144 mmol/L [facility] Urea nitrogen [Mass/Vol] 20 mg/dL 7 - 21 mg/dL [facility] HbA1c (Bld)on 07-21-2022 Average glucose Estimated from glycated hemoglobin (Bld) [Mass/Vol] 117 mg/dL [facility] HbA1c (Bld) [Mass fraction] 5.7 % High 4.3 - 5.6 % [facility] Lipid 1996 panelon Cholesterol [Mass/Vol] 220 mg/dL High <200 mg/dL [facility] Cholesterol in HDL [Mass/Vol] 46 mg/dL >39 mg/dL [facility] Cholesterol in LDL [Mass/Vol] 137 mg/dL High <100 mg/dL [facility] Cholesterol in LDL/Cholesterol in HDL [Mass ratio] 2.98 {ratio} High <2.54 [facility] Cholesterol in VLDL [Mass/Vol] 37 mg/dL High <30 mg/dL [facility] Cholesterol non HDL [Mass/Vol] 174 mg/dL High <130 mg/dL [facility] Cholesterol.total/Chol esterol in HDL [Mass ratio] 4.78 {ratio} <5.10 [facility] Fasting Time 4 hrs [facility] Triglyceride [Mass/Vol] 184 mg/dL High <150 mg/dL [facility] T3 [facility] 07-21-2022 T3 [Mass/Vol] 75 ng/dL Low 79 - 165 ng/dL [facility] T4 FREE/FREE THYROXon 2022 Free T4 [Mass/Vol] 1.6 ng/dL 0.9 - 1.7 ng/dL [facility] TSH [facility] 07-21-2022 TSH Qn 1.880 m[IU]/L 0.270 - 4.200 mIU/L [facility] VITAMIN B12 BLOODon 07-22-19 Cobalamin (Vitamin B12) [Mass/Vol] 246 pg/mL 232 - 1,245 pg/mL [facility] ALGN ALMOND IGEon 05-23-2022 Vaughn IgE Qn (S) <0.35 KU/L [facility] ALGN CASHEW NUT IGEon 2022 Cashew nut IgE Qn (S) <0.35 KU/L [facility] ALGN GLUTEN IGEon 05-23-2022 Gluten IgE Qn (S) <0.35 kU/l [facility] ALGN PEANUT IGEon 05-23-2022 Peanut IgE Qn (S) <0.35 kU/l [facility] ALGN PECAN NUT IGEon 023 Pecan or Zapata Nut IgE Qn (S) <0.35 kU/l [facility] ALGN WHEAT IGEon 05-23-2022 Wheat IgE Qn (S) <0.35 kU/l [facility] Vaughn IgE Qn (S)on 05-23-19 Vaughn IgE RAST class (S) Class 0 Class 0 [facility] Cashew nut IgE Qn (S)on 05-14 Cashew nut IgE RAST class (S) Class 0 Class 0 [facility] Comprehensive metabolic 2000 panelon 05-23-2022 Albumin [Mass/Vol] 4.4 g/dL 3.9 - 4.9 g/dL [facility] ALP [Catalytic activity/Vol] 65 U/L 34 - 123 U/L [facility] ALT [Catalytic activity/Vol] 12 U/L 7 - 38 U/L [facility] Anion gap [Moles/Vol] 12 mmol/L 9 - 18 mmol/L [facility] AST [Catalytic activity/Vol] 25 U/L 13 - 35 U/L [facility] Bilirubin [Mass/Vol] 0.8 mg/dL 0.2 - 1 .3 mg/dL [facility] Calcium [Mass/Vol] 9.9 mg/dL 8.5 - 10. 2 mg/dL [facility] Chloride [Moles/Vol] 101 mmol/L 97 - 10 5 mmol/L [facility] CO2 [Moles/Vol] 25 mmol/L 22 - 30 mmol/L [facility] Creatinine [Mass/Vol] 0.90 mg/dL 0.58 - 0.96 mg/dL [facility] Estimated Glomerular Filtration Rate 67 mL/min/1.73m >=60 mL/min/1.73 m [facility] Glucose [Mass/Vol] 73 mg/dL Low 74 - 99 mg/dL [facility] Potassium [Moles/Vol] 4.7 mmol/L 3.7 - 5.1 mmol/L [facility] Protein [Mass/Vol] 7.6 g/dL 6.3 - 8.0 g/dL [facility] Sodium [Moles/Vol] 138 mmol/L 136 - 144 mmol/L [facility] Urea nitrogen [Mass/Vol] 27 mg/dL High 7 - 21 mg/dL [facility] Gluten IgE Qn (S)on 05-23-19 Gluten IgE RAST class (S) Class 0 Class 0 [facility] Peanut IgE Qn (S)on 05-23-19 Peanut IgE RAST class (S) Class 0 Class 0 [facility] Pecan or Zapata Nut IgE Qn (S)on 05-23-2022 Pecan or Zapata Nut IgE RAST class (S) Class 0 Class 0 [facility] URINE CULTUREon 05-23-2022 Bacteria identified Cx Nom (U) No growth (<1,000 CFU/ml) [facility] Urinalysis complete panel (U )on 05-23-2022 Bilirubin Ql (U) Negative Negative [facility] Clarity (Unsp spec) Clear Clear [facility] Color (U) Light Yellow Yellow [facility] Epithelial cells LM.HPF (Urine sed) [#/Area] Few [facility] Glucose Test strip (U) [Mass/Vol] Negative Trace, Negative [facility] Hemoglobin Ql (U) Negative Negative, Trace [facility] Hyaline casts (Urine sed) [#/Area] 1-3 /LPF Abnormal 0 /LPF [facility] Ketones Ql (U) Negative Trace, Negative [facility] Leukocyte esterase Test strip Ql (U) Negative Negative, 25 Cruz/mL [facility] Nitrite Ql (U) Negative Negative [facility] pH (U) 6.5 [pH] 5.0 - 8.0 [facility] Protein (U) [Mass/Vol] 1+ Abnormal Trace , Negative [facility] RBC LM.HPF (Urine sed) [#/Area] 0-3 /HPF 0-3 /HPF [facility] Specific gravity (U) [Rel density] 1.023 1.005 - 1.030 [facility] Urobilinogen Ql (U) Negative Negative [facility] WBC LM.HPF (Urine sed) [#/Area] 0-5 /HPF 0-5 /HPF [facility] Wheat IgE Qn (S)on Wheat IgE RAST class (S) Class 0 Class 0 [facility] CBC W Auto Differential pane l (Bld)on 05-22-2022 Basophils (Bld) [#/Vol] 0.12 10*3/uL High <0.11 k/uL [facility] Basophils/100 WBC (Bld) 1.4 % [facility] Differential cell count method Nom (Bld) Auto [facility] Eosinophils (Bld) [#/Vol] 0.26 10*3/uL <0.46 k/uL [facility] Eosinophils/100 WBC (Bld) 3.0 % [facility] Erythrocyte distribution width (RBC) [Ratio] 14.6 % 11.5 - 15.0 % [facility] Hematocrit (Bld) [Volume fraction] 44.9 % 36.0 - 46.0 % [facility] Hemoglobin (Bld) [Mass/Vol] 14.2 g/dL 11.5 - 15.5 g/dL [facility] Immature granulocytes (Bld) [#/Vol] 0.03 10*3/uL <0.10 k/uL [facility] Immature granulocytes/100 WBC (Bld) 0.3 % [facility] Lymphocytes (Bld) [#/Vol] 3.76 10*3/uL 1.00 - 4.00 k/uL [facility] Lymphocytes/100 WBC (Bld) 42.8 % [facility] MCH (RBC) [Entitic mass] 29.4 pg 26.0 - 34.0 pg [facility] MCHC (RBC) [Mass/Vol] 31.6 g/dL 30.5 - 36.0 g/dL [facility] MCV (RBC) [Entitic vol] 93.0 fL 80.0 - 100.0 fL [facility] Monocytes (Bld) [#/Vol] 0.82 10*3/uL <0.87 k/uL [facility] Monocytes/100 WBC (Bld) 9.3 % [facility] Neutrophils (Bld) [#/Vol] 3.80 10*3/uL 1.45 - 7.50 k/uL [facility] Neutrophils/100 WBC (Bld) 43.2 % [facility] Nucleated RBC (Bld) [#/Vol] <0.01 k/uL [facility] Nucleated RBC/100 WBC (Bld) [Ratio] 0.0 /100 WBC [facility] Platelet mean volume (Bld) [Entitic vol] 10.8 fL 9.0 - 12.7 fL [facility] Platelets (Bld) [#/Vol] 365 10*3/uL 150 - 400 k/uL [facility] RBC (Bld) [#/Vol] 4.83 10*6/uL 3.90 - 5.2 0 m/uL [facility] WBC (Bld) [#/Vol] 8.79 10*3/uL 3.70 - 11.00 k/uL [facility] No Panel Informationon 12-05 [facility] CT ABD/PEL W IVCONon 022 [facility] No Panel InformationOrdered By: Ccf Provider on 09-02-2021 [facility] XR Elbow - left AP and Later jones 09-02-2021 IMPRESSION: NO ACUTE FINDINGS. Tricot Knitter: KEYANA Transcribe Date/Time: Sep 02 2021 7:52A [...] - ZZZ_DO_[id number]_ USE_DIVISIO N OF RADIOLOGY Provider, [facility] - 09/02/2021 * * *Final Report* * [...] preserved. - IMPRESSION IMPRESSION: NO ACUTE FINDINGS. Tricot Knitter: PSCB Transcribe Date/Time: Sep 02 2021 7:52A Dictated by : MALCOM GELLER MD This examination was interpreted and the report reviewed and electronically signed by: MALCOM GELLER MD on Sep 02 2021 7:53AM EST [facility] XR Shoulder - left 2 Viewson 09-02-2021 IMPRESSION: NO ACUTE FINDINGS. Tricot Knitter: PSCB Transcribe Date/Time: Sep 02 2021 7:53A [...] - ZZZ_DO_NOT_ USE_DIVISIO N OF RADIOLOGY Provider, [facility] - 09/02/2021 * * *Final Report* * [...] maintained. - IMPRESSION IMPRESSION: NO ACUTE FINDINGS. Tricot Knitter: PSCMykel Transcribe Date/Time: Sep 02 2021 7:53A Dictated by : MALCOM GELLER MD This examination was interpreted and the report reviewed and electronically signed by: MALCOM GELLER MD on Sep 02 2021 7:53AM EST [facility] Panel Informationon 09-01 Radiology Study observation (narrative) [facility] KARTHIK SCREENINGon 08-15-2021 [facility] XR Ankle - right AP and Late ral and obliqueon 01-05-2021 IMPRESSION: No radiographic evidence of acute osseous injury. Plantar calcaneal enthesophyte. Tricot Knitter: KEYANA Transcribe Date/Time: Jan 05 2021 10:38A [...] plantar calcaneal enthesophyte. DIVISION OF RADIOLOGY Provider, [facility] Skyler Warren - 01/05/2021 * * [...] of acute osseous injury. Plantar calcaneal enthesophyte. [facility] Transcribe Date/Time: Jan 05 2021 10:38A Dictated by : ZEKE TIRADO MD This examination was interpreted and the report reviewed and electronically signed by: ZEKE TIRADO MD on Jan 05 2021 10:39AM EST [facility] Radiology Study observation (narrative) [facility] XR Ankle - right AP and Late ral and obliqueOrdered By: Ccf Provider on 01-05-2021 [facility] XR Toes - left 3 Viewson IMPRESSION: Refer to the result. Tricot Knitter: PSCMykel Transcribe Date/Time: Aug 02 2020 12:20P Dictated by : BUCK MARRUFO MD This examination was interpreted and the report reviewed and electronically signed by: BUCK MARRUFO MD on Aug 02 2020 12:25PM [facility] DIVISION OF RADIOLOGY * * *Final Report* [...] proximal interphalangeal joint. DIVISION OF RADIOLOGY Provider, [facility] - 08/02/2020 * * *Final Report* * [...] joint. IMPRESSION IMPRESSION: Refer to the result. Tricot Knitter: KEYANA Transcribe Date/Time: Aug 02 2020 12:20P Dictated by : BUCK MARRUFO MD This examination was interpreted and the report reviewed and electronically signed by: BUCK MARRUFO MD on Aug 02 2020 12:25PM EST [facility] Radiology Study observation (narrative) [facility] XR Toes - left 3 ViewsOrdere d By: Ccf Provider on 08-02-2020 [facility] XR CHEST 2V FRONTAL/LATon XR CHEST 2V [...] tissues: Unremarkable. IMPRESSION: No acute radiographic abnormality. Tricot Knitter: [facility] Transcribe Date/Time: May 26 2020 9:36A Dictated by : SALLIE BUTTS MD This examination was interpreted and the report reviewed and electronically signed by: SALLIE BUTTS MD on May 26 2020 9:39AM EST Normal [facility] No Panel Informationon 04-27 [facility] CRITICAL SYSTEMS TECHNICIAN - Office Visiton 02-11 CRITICAL SYSTEMS TECHNICIAN - Office Visit Chief Complaint Patient here for pessary check. It is causing her discomfort. Circulation Tender Status: Declined History of Present IllnessDr. Kameron [...] 81 MG Oral Tablet Delayed Release; Therapy: (Recorded:[id number]) to Recorded Dispense: 0 Days ; #: Sufficient; Refill: 0; ZAK = N; Record; Last Updated By: Bety Iverson; 01/28/2020 1:21:26 PM Fontane[employer] Concentrate Oral Concentrate; Therapy: (Recorded:[id number]) to Recorded Dispense: 0 Days ; #: Sufficient; Refill: 0; ZAK = N; Record; Last Updated By: Bety Iverson; 01/28/2020 1:21:27 PM Vitamin D3 25 MCG (1000 UT) Oral Tablet; TAKE 1 TABLET DAILY; Therapy: (Recorded:[id number]) to Recorded Dispense: 0 Days ; #: Sufficient Tablet; Refill: 0; ZAK = N; Record; Last Updated By: Bety Iverson; 01/28/2020 1:21:27 PM Vitals Vital Signs Recorded: [id number] 10:13AM Ucmlotnd603 Akgakhvcg54 Nuqrgf644 lb BMI Tlbekwqivt93.9 BSA Calculated1.92 Physical Exam Constitutional: Alert and [...] Cx Nom (U) PATIENT: SANDRA SCHMITZ LOCATION: [facility]#: [id number] : 47 AGE: SEX: F ORDERED BY: ISAEL MELO: URINE COLLECTED: 02/04/20 16:53ANTIBIOTICS AT RASHAAD.: RECEIVED : 02/05/20 00:18SITE: R E S U L T S URINE CULTURE,BACTERIAL FINAL 02/05/20 18:51 NO SIGNIFICANT GROWTH. [facility] Work Phone: CRITICAL SYSTEMS TECHNICIAN - Office Visiton 01-13 CRITICAL SYSTEMS TECHNICIAN - Office Visit Chief Complaint recheck pessary, refer from DR. Doll History of Present Ormzbsh11 y.o. W and 1 ectopic with prior [...] Tablet; TAKE 1 TABLET DAILY Requested for: [id number]; Last Rx:[id number] Ordered Rx By: Rafael Frank III; Dispense: 90 Days ; #:90 Tablet; Refill: 1;For: Hypothyroidism; ZAK = N; Print Rx; Last Updated By: Bety Iverson; 01/28/2020 1:21:26 PM Aspirin Adult Low Dose 81 MG Oral Tablet Delayed Release; Therapy: (Recorded:[id number]) to Recorded Dispense: 0 Days ; #: Sufficient; Refill: 0; ZAK = N; Record; Last Updated By: Bety Iverson; 01/28/2020 1:21:26 PM Fontanez Concentrate Oral Concentrate; Therapy: (Recorded:[id number]) to Recorded Dispense: 0 Days ; #: Sufficient; Refill: 0; ZAK = N; Record; Last Updated By: Bety Iverson; 01/28/2020 1:21:27 PM Vitamin D3 25 MCG (1000 UT) Oral Tablet; TAKE 1 TABLET DAILY; Therapy: (Recorded:[id number]) to Recorded Dispense: 0 Days ; #: Sufficient Tablet; Refill: 0; ZAK = N; Record; Last Updated By: Bety Iverson; 01/28/2020 1:21:27 PM Vitals Vital Signs Recorded: 74Ydj4802 02:16PM Modqubil005 Cxhocxrmo85 Height5 ft 3 in Sdibil285 lb BMI Ccurikydur71.43 BSA Calculated1.93 LMPyears ago Gravida2 Para1 Physical [...] (788.1) (R30.0) Orders Cult, Urine; Status:Active; Requested for:[id number]; Perform:Lab Services - Lab To Draw (Non-Blood Test); Due:58Zrg2733;Ordered; For:Dysuria; Ordered By:Darren Melo; Urinalysis; Status:Active; Requested for:80Mug8220; Perform:Lab Services - Lab To Draw (Non-Blood Test); Due:22Mbd8884;Ordered; For:Dysuria; Ordered By:Darren Melo; Provider Impressions Utero [...] MICROSCOPICon 02-04-2020 BACTERIA 4+ /HPF Abnormal [place]/[facility] Comment on above: Performed By: #### L IPID #### [address] [address] RBC (Bld) [#/Vol] NONE Normal 0-5 [facility] Comment on above: Performed By: #### L IPID #### [address] [address] SQUAMOUS EPITH. CELLS 3 /HPF Normal [place] inson/[facility] Comment on above: Performed By: #### L IPID #### [address] [address] WBC 1 /HPF Normal 0-5 [place]/[facility] Comment on above: Performed By: #### L IPID #### [address] [address] URINALYSISon 02-04-2020 Appearance (U) Clear Normal CLEAR [place]/P [facility] Comment on above: Performed By: #### U A #### [address] [address] Bilirubin (U) [Mass/Vol] Negative Normal NEGATIVE [place]/[facility] Comment on above: Performed By: #### U A #### [address] [address] BLOOD Negative Normal NEGATIVE [place]/[facility] Comment on above: Performed By: #### U A #### [address] [address] Color (U) Yellow Normal STRAW,YELLO W [place]/[facility] Comment on above: Performed By: #### U A #### [address] [address] Glucose [Mass/Vol] Negative Normal NEGATIVE [place]/Po [facility] Comment on above: Performed By: #### U A #### [address] [address] Ketones Ql (U) Negative Normal NEGATIVE [place]/[facility] Comment on above: Performed By: #### U A #### [address] [address] Leukocyte esterase Test strip Ql (U) MODERATE(2+) Abnormal NEGATIVE [place]/[facility] Comment on above: Performed By: #### U A #### [address] [address] Nitrite Ql (U) Negative Normal NEGATIVE [place]/[facility] Comment on above: Performed By: #### U A #### [address] [address] pH (Bld) 6.0 Normal 5.0 - 8.0 [place]/[facility] Comment on above: Performed By: #### U A #### [address] [address] Protein (U) [Mass/Vol] Negative Normal NEGATIVE Ro [place]/[facility] Comment on above: Performed By: #### U A #### [address] [address] Specific gravity (U) [Rel density] 1.011 Normal 1.005 - 1.035 [place]/[facility] Comment on above: Performed By: #### U A #### [address] [address] Urobilinogen Qn (U) <2.0 Normal 0.0 - 1.9 Robert son/[facility] Comment on above: Performed By: #### U A #### [address] [address] URINE CULTURE,BACTERIALon URINE CULTURE,BACTERIAL PATIENT: SANDRA SCHMITZ LOCATION: [facility]#: [id number] : 47 AGE: SEX: F ORDERED BY: DARREN MELO SOURCE: URINE COLLECTED: 02/04/20 16:53 ANTIBIOTICS AT RASHAAD.: RECEIVED : 02/05/20 00:18 SITE: R E Eileen U L T S URINE CULTURE,BACTERIAL FINAL 02/05/20 18:51 NO SIGNIFICANT GROWTH. Normal [place]/[facility] Comment on above: Performed By: #### L IPID #### [facility] [address] [place] [address] Urinalysison 02-04-2020 Appearance (U) Clear CLEAR [facility] [employer] Work Phone: Color (U) Yellow See Below [facility] [employer] Work Phone: Comment on above: Reference Range: STR AW,YELLOW Glucose Ql (U) Negative NEGATIVE [facility] [employer] Work Phone: Ketones Ql (U) Negative NEGATIVE [facility] [employer] Work Phone: Leukocyte esterase Test strip Ql (U) MODERATE(2+) Abnormal NEGATIVE [facility] [employer] Work Phone: pH (U) 6.0 [pH] 5.0 - 8.0 [facility] [employer] Work Phone: Protein (U) [Mass/Vol] Negative NEGATIVE [facility] [employer] Work Phone: RBC (U) [#/Vol] Negative NEGATIVE [facility] [employer] Phone: Specific gravity (U) [Rel density] 1.011 See Below [facility] [employer] Phone: Comment on above: Reference Range: 1.0 05 - 1.035 Urinalysis Negative NEGATIVE [facility] [employer] Phone: Urinalysis <2.0 0.0 - 1.9 [facility] [employer] Work Phone: Urinalysis, Microscopicon Bacteria LM.HPF (Urine sed) [#/Area] 4+ Abnormal [facility] [employer] Work Phone: RBC (Bld) [#/Vol] NONE 0-5 [facility] [employer] Work Phone: Urinalysis, Microscopic 1 {/HPF} 0-5 [facility] Work Phone: Urinalysis, Microscopic 3 {/HPF} [facility] [employer] Work Phone: CRITICAL SYSTEMS TECHNICIAN - Office Visiton 01-12 CRITICAL SYSTEMS TECHNICIAN - Office Visit Chief Complaint PT here for a PESSARY check from 10/21/2019 States she thinks she might have to change sizes. Circulation Tender Declined Bety Iverson CMA History of Present [...] Tablet; TAKE 1 TABLET DAILY Requested for: [id number]; Last Rx:[id number] Ordered Rx By: Rafael Frank III; Dispense: [...] PM Vitals Vital Signs Recorded: 28Jan2020 01:21PM Qffvgoif219 Nfwacglgk91 Height5 ft 3 in Vacday284 lb BMI Knmpnrsvus10.07 BSA Calculated1.93 Physical Exam Constitutional: Alert and [...] [Ratio] 14.0 % Normal 11.5 - 14.5 [facility] Comment on above: Performed By: #### C BC #### [address] [address] Hematocrit (Bld) [Volume fraction] 45.0 % Normal 36.0 - 46.0 [facility] Comment on above: Performed By: #### C BC #### [address] [address] Hemoglobin (Bld) [Mass/Vol] 14.0 g/dL Normal 12.0 - 16.0 [facility] Comment on above: Performed By: #### C BC #### [address] [address] MCHC (RBC) [Mass/Vol] 31.1 g/dL Low 32.0 - 36.0 [facility] Comment on above: Performed By: #### C BC #### [address] [address] MCV (RBC) [Entitic vol] 93 fL Normal 80 - 100 [place] Comment on above: Performed By: #### C BC #### [address] [address] Platelets (Bld) [#/Vol] 369 10*3/uL Normal 150 - 450 [place] Comment on above: Performed By: #### C BC #### [address] [address] RBC (Bld) [#/Vol] 4.83 x10E12/L Normal 4.00 - 5.20 [place]n inson/[facility] Comment on above: Performed By: #### C BC #### [address] [address] WBC (Bld) [#/Vol] 8.1 10*3/uL Normal 4.4 - 11.3 [place]/[facility] Comment on above: Performed By: #### C BC #### [address] [address] COMPREHENSIVE PANELon 2019 Albumin [Mass/Vol] 4.2 g/dL Normal 3.4 - 5.0 [place]/[facility] Comment on above: Performed By: #### C MP #### [address] [address] ALP [Catalytic activity/Vol] 58 U/L Normal 33 - 136 [place]/[facility] Comment on above: Performed By: #### C MP #### [address] [address] ALT [Catalytic activity/Vol] 11 U/L Normal 7 - 45 [place]/[facility] Comment on above: Result Comment: Shelby ents treated with Sulfasalazine may generate falsely decreased results for ALT. Performed By: #### C MP #### [address] [address] Anion gap [Moles/Vol] 10 mmol/L Normal 10 - 20 [place]n inson/Po [facility] Comment on above: Performed By: #### C MP #### [address] [address] AST [Catalytic activity/Vol] 15 U/L Normal 9 - 39 [place] Comment on above: Performed By: #### C MP #### [address] [address] Bilirubin [Mass/Vol] 0.4 mg/dL Normal 0.0 - 1.2 [place] nson/[facility] Comment on above: Performed By: #### C MP #### [address] [address] Calcium [Mass/Vol] 9.5 mg/dL Normal 8.6 - 10.3 [place]/[facility] Comment on above: Performed By: #### C MP #### [address] [address] Chloride [Moles/Vol] 104 mmol/L Normal 98 - 107 [place] nson/Po [facility] Comment on above: Performed By: #### C MP #### [address] [address] Creatinine [Mass/Vol] 0.63 mg/dL Normal 0.50 - 1.05 Ro binson/[facility] Comment on above: Performed By: #### C MP #### [address] [address] GFR- AM. >60 Normal >60 [place]/ [facility] Comment on above: Result Comment: CALC ULATIONS OF ESTIMATED GFR ARE PERFORMED USING THE MDRD STUDY EQUATION FOR THE IDMS-TRACEABLE CREATININE METHODS. CLIN CHEM 2007;53:766-72 Performed By: #### C MP #### [address] [address] GFR-NON AM. >60 Normal >60 Robert son/Po [facility] Comment on above: Performed By: #### C MP #### [address] [address] Glucose [Mass/Vol] 87 mg/dL Normal 74 - 99 [place]/[facility] Comment on above: Performed By: #### C MP #### [address] [address] HCO3 (Bld) [Moles/Vol] 31 mmol/L Normal 21 - 32 Ro [place]/[facility] Comment on above: Performed By: #### C MP #### [address] [address] Potassium [Moles/Vol] 4.4 mmol/L Normal 3.5 - 5.3 [place]n inson/Po [facility] Comment on above: Performed By: #### C MP #### [address] [address] Protein [Mass/Vol] 7.6 g/dL Normal 6.4 - 8.2 [place]/[facility] Comment on above: Performed By: #### C MP #### [address] [address] Sodium [Moles/Vol] 141 mmol/L Normal 136 - 145 [place] on/[facility] Comment on above: Performed By: #### C MP #### [address] [address] Urea nitrogen [Mass/Vol] 13 mg/dL Normal 6 - 23 [place]/[facility] Comment on above: Performed By: #### C MP #### [address] [address] [facility]acon 01-22-2020 Cholesterol [Mass/Vol] 248 mg/dL above hig h threshold 0 - 199 [facility] [employer] Work Phone: Comment on above: . AGE [...] dosing. Cholesterol in HDL [Mass/Vol] 51.9 mg/dL [facility] [employer] Phone: Comment on above: . AGE VERY LOW LOW N ORMAL HIGH 0-19 Y < 35 < 40 40-45 ---- 20-24 Y ---- < 40 >45 ---- >24 Y ---- < 40 40-60 >60. Hematologyon 01-22-2020 Hematocrit (Bld) [Volume fraction] 45.0 % See Below [facility] [employer] Phone: Comment on above: Reference Range: 36. 0 - 46.0 Hemoglobin (Bld) [Mass/Vol] 14.0 g/dL See Below [facility] [employer] Phone: Comment on above: Reference Range: 12. 0 - 16.0 MCV (RBC) [Entitic vol] 93 fL 80 - 100 [facility] [employer] Work Phone: Platelets (Bld) [#/Vol] 369 {x10E9/L} 150 - 450 [facility] [employer] Phone: RBC (Bld) [#/Vol] 4.83 {x10E12/L} See Below Wo [facility] [employer] Phone: Comment on above: Reference Range: 4.0 0 - 5.20 WBC (Bld) [#/Vol] 8.1 {x10E9/L} 4.4 - 11.3 [facility] [employer] Work Phone: LIPID PANEL NON-FASTINGon Cholesterol [Mass/Vol] 248 mg/dL High 0 - 199 Ro [facility] Comment on above: Result Comment: . [...] dosing. Performed By: #### L IPIN #### [address] [address] Cholesterol in HDL [Mass/Vol] 51.9 mg/dL Normal [place]/[facility] Comment on above: Result Comment: . AGE VERY LOW LOW NORMAL HIGH 0-19 Y < 35 < 40 40-45 ---- 20-24 Y ---- < 40 >45 ---- >24 Y ---- < 40 40-60 >60 . Performed By: #### L IPIN #### [address] [address] Cholesterol.total/Chol esterol in HDL [Mass ratio] 4.8 {ratio} Normal [place]/[facility] Comment on above: Result Comment: REF VALUES DESIRABLE < 3.4 HIGH RISK > 5.0 Performed By: #### L IPIN #### [address] [address] NON-HDL CHOLESTEROL 196 mg/dL Normal [facility] Comment on above: Result Comment: AGE DESIRABLE BORDERLINE HIGH HIGH VERY HIGH 0-19 Y 0 - 119 120 - 144 >/= 145 >/= 160 20-24 Y 0 - 149 150 - 189 >/= 190 ---- >24 Y 30 MG/DL ABOVE LDL CHOLESTEROL GOAL . Performed By: #### L IPIN #### [address] [address] Metabolic Panelon 01-22-2020 ALP [Catalytic activity/Vol] 58 U/L 33 - 136 [facility] [employer] Work Phone: Anion gap [Moles/Vol] 10 mmol/L 10 - 20 [facility] [employer] Work Phone: Bilirubin [Mass/Vol] 0.4 mg/dL 0.0 - 1.2 [facility] [employer] Work Phone: Calcium [Mass/Vol] 9.5 mg/dL 8.6 - 10.3 Women are-N [facility] [employer] Phone: Chloride [Moles/Vol] 104 mmol/L 98 - 107 [facility] [employer] Work Phone: CO2 [Moles/Vol] 31 mmol/L 21 - 32 [facility] -N [facility] [employer] Work Phone: Creatinine [Mass/Vol] 0.63 mg/dL See Below [facility] [employer] Phone: Comment on above: Reference Range: 0.5 0 - 1.05 Glucose [Mass/Vol] 87 mg/dL 74 - 99 [facility] are-N [facility] [employer] Phone: Potassium [Moles/Vol] 4.4 mmol/L 3.5 - 5.3 [facility] [employer] Phone: Protein [Mass/Vol] 7.6 g/dL 6.4 - 8.2 [facility] are-N [facility] [employer] Phone: Sodium [Moles/Vol] 141 mmol/L 136 - 145 [facility] are-N [facility] [employer] Phone: Urea nitrogen [Mass/Vol] 13 mg/dL 6 - 23 [facility] [employer] Work Phone: Otheron 01-22-2020 Albumin BCP dye [Mass/Vol] 4.2 g/dL 3.4 - 5.0 [facility] [employer] Work Phone: ALT With P-5'-P [Catalytic activity/Vol] 11 U/L 7 - 45 [facility] [employer] Phone: Comment on above: Patients treated wit h Sulfasalazine may generate falsely decreased results for ALT. AST With P-5'-P [Catalytic activity/Vol] 15 U/L 9 - 39 [employer] Phone: Cholesterol non HDL [Mass/Vol] 196 mg/dL [employer] Phone: Comment on above: AGE DESIRABLE BORDER LINE HIGH HIGH VERY HIGH 0-19 Y 0 - 119 120 - 144 >/= 145 >/= 160 20-24 Y 0 - 149 150 - 189 >/= 190 ---- >24 Y 30 MG/DL ABOVE LDL CHOLESTEROL GOAL. Cholesterol.total/Chol esterol in HDL [Mass ratio] 4.8 {ratio} [employer] Phone: Comment on above: REF VALUESDESIRABLE < 3.4HIGH RISK > 5.0 Erythrocyte distribution width (RBC) [Ratio] 14.0 % See Below [employer] Phone: Comment on above: Reference Range: 11. 5 - 14.5 MCHC (RBC) [Mass/Vol] 31.1 g/dL below low threshold See Below [employer] Phone: Comment on above: Reference Range: 32. 0 - 36.0 >60 >60 [employer] Phone: Comment on above: CALCULATIONS OF AARON MATED GFR ARE PERFORMED USING THE MDRD STUDY EQUATION FOR THE IDMS-TRACEABLE CREATININE METHODS. CLIN CHEM 2007;53:766-72 TSHon 01-22-2020 TSH Qn 3.22 m[IU]/L Normal 0.44 - 3.98 [facility] Comment on above: Result Comment: TSH testing is performed using different testing methodology at [facility] than at other [facility]. Direct result comparisons should only be made within the same method. Performed By: #### T [facility] #### [facility] [address] [place] [address] TSH - Thyroid Stimulating Ho rmone, Serumon 01-22-2020 TSH Qn 3.22 {mIU/L} See Below [employer] Phone: Comment on above: Reference Range: 0.4 4 - 3.98 TSH testing is performed using different testing methodology at [facility] than at other [facility]. Direct result comparisons should only be made within the same method. CRITICAL SYSTEMS TECHNICIAN - Office Visiton CRITICAL SYSTEMS TECHNICIAN - Office Visit Chief Complaint 3 month [...] Vital Signs Recorded: 21Oct2019 01:20PMRecorded: 21Oct2019 01:19PM Skdwardq897 Norsrgcyr54 Layoag941 lb BMI Gucgyckwbz83.54 BSA Calculated1.91 Physical Exam Constitutional: Alert and [...] [Ratio] 14.2 % Normal 11.5 - 14.5 [facility] Comment on above: Performed By: #### C BC #### [address] [address] Hematocrit (Bld) [Volume fraction] 45.4 % Normal 36.0 - 46.0 [facility] Comment on above: Performed By: #### C BC #### [facility] [address] [place] [address] Hemoglobin (Bld) [Mass/Vol] 13.9 g/dL Normal 12.0 - 16.0 [facility] Comment on above: Performed By: #### C BC #### [address] [address] MCHC (RBC) [Mass/Vol] 30.6 g/dL Low 32.0 - 36.0 Ro [place]/[facility] Comment on above: Performed By: #### C BC #### [address] [address] MCV (RBC) [Entitic vol] 92 fL Normal 80 - 100 [place]/[facility] Comment on above: Performed By: #### C BC #### [address] [address] Platelets (Bld) [#/Vol] 349 10*3/uL Normal 150 - 450 [place] Comment on above: Performed By: #### C BC #### [address] [address] RBC (Bld) [#/Vol] 4.91 x10E12/L Normal 4.00 - 5.20 Ronn inson/Po [facility] Comment on above: Performed By: #### C BC #### [address] [address] WBC (Bld) [#/Vol] 8.0 10*3/uL Normal 4.4 - 11.3 [place]/[facility] Comment on above: Performed By: #### C BC #### [address] [address] COMPREHENSIVE PANELon 2019 Albumin [Mass/Vol] 3.9 g/dL Normal 3.4 - 5.0 [place]/[facility] Comment on above: Performed By: #### C MP #### [address] [address] ALP [Catalytic activity/Vol] 66 U/L Normal 33 - 136 [place] Comment on above: Performed By: #### C MP #### [address] [address] ALT [Catalytic activity/Vol] 10 U/L Normal 7 - 45 [place]/[facility] Comment on above: Result Comment: [place] ents treated with Sulfasalazine may generate falsely decreased results for ALT. Performed By: #### C MP #### [address] [address] Anion gap [Moles/Vol] 10 mmol/L Normal 10 - 20 Ronn inson/Po [facility] Comment on above: Performed By: #### C MP #### [address] [address] AST [Catalytic activity/Vol] 14 U/L Normal 9 - 39 [place]/Po [facility] Comment on above: Performed By: #### C MP #### [address] [address] Bilirubin [Mass/Vol] 0.5 mg/dL Normal 0.0 - 1.2 Mendoza nson/Po [facility] Comment on above: Performed By: #### C MP #### [place] [address] Calcium [Mass/Vol] 9.1 mg/dL Normal 8.6 - 10.3 [place] on/Po [facility] Comment on above: Performed By: #### C MP #### [place] [address] Chloride [Moles/Vol] 106 mmol/L Normal 98 - 107 Mendoza nson/Po [facility] Comment on above: Performed By: #### C MP #### [address] [address] Creatinine [Mass/Vol] 0.59 mg/dL Normal 0.50 - 1.05 Ro binson/Po [facility] Comment on above: Performed By: #### C MP #### [address] [address] GFR- AM. >60 Normal >60 [place]/ [facility] Comment on above: Result Comment: CALC ULATIONS OF ESTIMATED GFR ARE PERFORMED USING THE MDRD STUDY EQUATION FOR THE IDMS-TRACEABLE CREATININE METHODS. CLIN CHEM 2007;53:766-72 Performed By: #### C MP #### [address] [address] GFR-NON AM. >60 Normal >60 Robert son/Po [facility] Comment on above: Performed By: #### C MP #### [address] [address] Glucose [Mass/Vol] 75 mg/dL Normal 74 - 99 [place]/Po [facility] Comment on above: Performed By: #### C MP #### [address] [address] HCO3 (Bld) [Moles/Vol] 29 mmol/L Normal 21 - 32 Ro binson/Po [facility] Comment on above: Performed By: #### C MP #### [address] [address] Potassium [Moles/Vol] 4.2 mmol/L Normal 3.5 - 5.3 Ronn inson/Po [facility] Comment on above: Performed By: #### C MP #### [address] [address] Protein [Mass/Vol] 6.9 g/dL Normal 6.4 - 8.2 [place]/Po [facility] Comment on above: Performed By: #### C MP #### [address] [address] Sodium [Moles/Vol] 141 mmol/L Normal 136 - 145 [place] on/Po [facility] Comment on above: Performed By: #### C MP #### [address] [address] Urea nitrogen [Mass/Vol] 17 mg/dL Normal 6 - 23 [place]/Po [facility] Comment on above: Performed By: #### C MP #### [address] [address] LIPID PANEL (CORONARY RISK 2 )on 07-22-2019 Cholesterol [Mass/Vol] 243 mg/dL High 0 - 199 Ro binson/Po [facility] Comment on above: Result Comment: . [...] dosing. Performed By: #### L IPID #### [address] [address] Cholesterol in HDL [Mass/Vol] 47.0 mg/dL Normal [facility] Comment on above: Result Comment: . AGE VERY LOW LOW NORMAL HIGH 0-19 Y < 35 < 40 40-45 ---- 20-24 Y ---- < 40 >45 ---- >24 Y ---- < 40 40-60 >60 . Performed By: #### L IPID #### [address] [address] Cholesterol in LDL [Mass/Vol] 151 mg/dL High 0 - 99 [facility] Comment on above: Result Comment: . NEAR BORD AGE DESIRABLE OPTIMAL HIGH HIGH VERY HIGH 0-19 Y 0 - 109 --- 110-129 >/= 130 ---- 20-24 Y 0 - 119 --- 120-159 >/= 160 ---- >24 Y 0 - 99 100-129 130-159 160-189 >/=190 . Performed By: #### L IPID #### [address] [address] Cholesterol in VLDL [Mass/Vol] 45 mg/dL High 0 - 40 [facility] Comment on above: Performed By: #### L IPID #### [address] [address] Cholesterol.total/Chol esterol in HDL [Mass ratio] 5.2 {ratio} Abnormal [facility] Comment on above: Result Comment: REF VALUES DESIRABLE < 3.4 HIGH RISK > 5.0 Performed By: #### L IPID #### [address] [address] NON-HDL CHOLESTEROL 196 mg/dL Normal Robert son/[facility] Comment on above: Result Comment: AGE DESIRABLE BORDERLINE HIGH HIGH VERY HIGH 0-19 Y 0 - 119 120 - 144 >/= 145 >/= 160 20-24 Y 0 - 149 150 - 189 >/= 190 ---- >24 Y 30 MG/DL ABOVE LDL CHOLESTEROL GOAL . Performed By: #### L IPID #### [facility] [address] [place] [address] Triglyceride [Mass/Vol] 225 mg/dL High 0 - 149 [place]/[facility] Comment on above: Result Comment: . [...] dosing. Performed By: #### L IPID #### [address] [address] CRITICAL SYSTEMS TECHNICIAN - Office Visiton 07-12 CRITICAL SYSTEMS TECHNICIAN - Office Visit Chief Complaint Pessary Follow Up History of Present Illness here for recheck of pessary, no bleeding. moving to [place] Review of Systems Constitutional: no fever, no [...] Hypothyroidism; ZAK = N; Verified Transmission to [facility]; Last Updated By: [employer]; 03/18/2019 8:27:37 AM Aspirin Adult Low Dose 81 MG Oral Tablet Delayed Release; Therapy: (Recorded:06Mar2019) to Recorded Dispense: 0 Days ; #: Sufficient; Refill: 0; ZAK = N; Record; Last Updated By: Solane Feng; 03/06/2019 10:30:31 AM Vitamin D-3 TABS; Therapy: (Recorded:06Mar2019) to Recorded Dispense: 0 Days ; #: Sufficient; Refill: 0; ZAK = N; Record; Last Updated By: Sloane Feng; 03/06/2019 10:30:31 AM Vitals Vital Signs Recorded: 22Jul2019 11:25AM [id number] lb Physical Exam Constitutional: Alert and in [...] Jul 22 2019 11:50AM EST (Author) Normal Quantance TSHon 07-22-2019 TSH Qn 2.12 m[IU]/L Normal 0.44 - 3.98 [place]/[facility] Comment on above: Result Comment: Note new pediatric reference range as of 07/17/2019. TSH testing is performed using different testing methodology at [facility] than at other [facility]. Direct result comparisons should only be made within the same method. Performed By: #### T SH2 #### [facility] [address] [place] [address] VITAMIN D, 25-HYDROXYon 07-12 VITAMIN D, 25-HYDROXY 31 ng/mL Normal Ronn ins/[facility] Comment on above: Result Comment: . DEFICIENCY: < 20 NG/ML INSUFFICIENCY: 20-29 NG/ML SUFFICIENCY: 30-100 NG/ML THIS ASSAY ACCURATELY QUANTIFIES THE SUM OF VITAMIN D3, 25-HYDROXY AND VIT D2,25-HYDROXY. Performed By: #### V TDOH #### [facility] [address] [place] [address] CBCon 01-22-2019 Erythrocyte distribution width (RBC) [Ratio] 14.8 % Normal 11.4-16.0 [facility] Hematocrit (Bld) [Volume fraction] 42.5 % Normal 34.7-44.9 [facility] Hemoglobin (Bld) [Mass/Vol] 14.1 g/dL Normal 11.3-15.6 [facility] MCH (RBC) [Entitic mass] 29.1 pg Normal 26.5-33.0 [facility] MCHC (RBC) [Mass/Vol] 33.1 g/dL Normal 32.6-36.0 [facility] MCV (RBC) [Entitic vol] 87.7 fL Normal 80.0-100.0 [facility] Mean Plt Vol 8.8 fL Normal 7.2-10.3 [facility] Platelets (Bld) [#/Vol] 362 10*3/uL Normal 144-400 [facility] RBC (Bld) [#/Vol] 4.84 x10E12/L Normal 3.78-5.45 [facility] WBC (Bld) [#/Vol] 7.4 10*3/uL Normal 3.5-11.5 [facility] CMPon 01-22-2019 Albumin [Mass/Vol] 4.0 g/dL Normal 3.5-5.0 [facility] Alk Phos 62 IU/L Normal 32-91 [facility] ALT [Catalytic activity/Vol] 12 U/L Low 14-63 [facility] Anion gap [Moles/Vol] 11.0 mmol/L Normal 5.0-19.0 [facility] AST [Catalytic activity/Vol] 18 U/L Normal 15-41 [facility] Bilirubin [Mass/Vol] 0.5 mg/dL Normal 0.3-1.2 [facility] Bun/CretRatio 18.1 Normal [facility] Calcium [Mass/Vol] 9.5 mg/dL Normal 8.1-10.1 [facility] Chloride [Moles/Vol] 104 mmol/L Normal 98-107 [facility] CO2 [Moles/Vol] 25 mmol/L Normal 22-32 [facility] Creatinine [Mass/Vol] 0.72 mg/dL Normal 0.60-1.30 [facility] Glucose [Mass/Vol] 84 mg/dL Normal 70-100 [facility] Osmolality-Calc 279 mOsm/kg Normal [facility] Potassium [Moles/Vol] 4.0 mmol/L Normal 3.4-5.1 [facility] Protein [Mass/Vol] 7.3 g/dL Normal 6.5-8.1 [facility] Sodium [Moles/Vol] 140 mmol/L Normal 136-144 [facility] Urea nitrogen [Mass/Vol] 13 mg/dL Normal 8-26 [facility] LDL Calculatedon 01-22-2019 Cholesterol in LDL [Mass/Vol] 124 mg/dL Normal [facility] Comment on above: Result Comment: Calculated LDL is unreliable when Triglyceride result is greater than 400. TSHon 01-22-2019 TSH Qn 2.18 uIU/mL Normal 0.34-5.60 [facility] Vit D 25OHon 01-22-2019 Vit D 25-OH 22 ng/mL Normal [facility] Comment on above: Result Comment: Deficient: Less than 20 ng/mL Insufficient: 20 to less than 30 ng/mL Sufficient: 30 to 100 ng/mL Upper Safety Limit: Greater than 100 ng/mL ZLipidon 01-22-2019 Cholesterol [Mass/Vol] 219 mg/dL High 0-200 [facility] Cholesterol in HDL [Mass/Vol] 51 mg/dL Normal [facility] Triglyceride [Mass/Vol] 222 mg/dL High 0-149 [facility] JOSÉ ANTONIO/MAMMO SCRN DIGIT BILon 0 12-06-2018 Bilirubin [Mass/Vol] Patient Name: SANDRA SCHMITZ STUDY: JOSÉ ANTONIO/MAMMO SCRN DIGIT MADDI; 12/05/2018 12:40 pm INDICATION: Screening. COMPARISON: 08/22/2017 ACCESSION NUMBER(S): [id number] ORDERING CLINICIAN: MANE SOLIS FINDINGS: The breasts are almost entirely fatty. No suspicious masses or calcifications are identified. This study was interpreted with CAD. Markers: [place]- skin lesion; triangle- palpable abnormality IMPRESSION: No mammographic evidence of malignancy. BI-RADS CATEGORY: Category: 1 - Negative. Recommendation: Continued age appropriate screening mammography For any future breast imaging appointments, please call [phone] Dictated by: Electronically Signed by: Isiah Dacosta Electronically Signed on: 12/06/2018 4:18 PM Normal [facility] NUC/HIDA W/ CCKon 11-08-2018 NUC/HIDA W/ CCK Patient Name: SANDRA SCHMITZ STUDY: NUC/HIDA W/ CCK; 11/08/2018 3:09 pm INDICATION: RUQ PAIN. COMPARISON: Ultrasound of the abdomen 10/21/2018, CT of the abdomen 10/31/2018 ACCESSION NUMBER(S): [id number] ORDERING CLINICIAN: LC MCCARTHY TECHNIQUE: DIVISION OF [...] as stated. This study was interpreted at [facility], [place], [place]. Dictated by: Electronically Signed by: Moises Macdonald Electronically Signed on: 11/08/2018 3:40 PM Normal [facility] JOSÉ ANTONIO/CT ABD/PELVIS WITHon JOSÉ ANTONIO/CT ABD/PELVIS WITH Patient Name: SANDRA SCHMITZ STUDY: Unremarkable. JOSÉ ANTONIO/CT ABD/PELVIS WITH; 10/31/2018 12:26 pm INDICATION: PAIN. COMPARISON: 08/22/2017 ACCESSION NUMBER(S): [id number] ORDERING CLINICIAN: LC MCCARTHY TECHNIQUE: CT of [...] Signed on: 11/04/2018 1:[address] [facility] Creaton 10-29-2018 Creatinine [Mass/Vol] 0.64 mg/dL Normal 0.60-1.30 Ronn [facility] RUL/ABDOMEN LIMITEDon 2018 RUL/ABDOMEN LIMITED Patient Name: SANDRA SCHMITZ STUDY: RUL/ABDOMEN LIMITED; 10/21/2018 9:19 am INDICATION: RUQ ABD PAIN--EAL GB. COMPARISON: None. ACCESSION NUMBER(S): [id number] ORDERING CLINICIAN: LC MCCARTHY TECHNIQUE: Multiple images [...] Electronically Signed on: 10/21/2018 10:09 AM Normal [facility] CBCon 08-08-2018 Erythrocyte distribution width (RBC) [Ratio] 15.1 % Normal 11.4-16.0 [facility] Hematocrit (Bld) [Volume fraction] 42.3 % Normal 34.7-44.9 [facility] Hemoglobin (Bld) [Mass/Vol] 13.9 g/dL Normal 11.3-15.6 [facility] MCH (RBC) [Entitic mass] 28.7 pg Normal 26.5-33.0 [facility] MCHC (RBC) [Mass/Vol] 32.8 g/dL Normal 32.6-36.0 [facility] MCV (RBC) [Entitic vol] 87.7 fL Normal 80.0-100.0 [facility] Mean Plt Vol 8.7 fL Normal 7.2-10.3 [facility] Platelets (Bld) [#/Vol] 367 10*3/uL Normal 144-400 [facility] RBC (Bld) [#/Vol] 4.82 x10E12/L Normal 3.78-5.45 [facility] WBC (Bld) [#/Vol] 7.4 10*3/uL Normal 3.5-11.5 [place] [facility] CMPon 08-08-2018 Albumin [Mass/Vol] 4.0 g/dL Normal 3.5-5.0 [facility] Alk Phos 56 IU/L Normal 32-91 [facility] ALT [Catalytic activity/Vol] 12 U/L Low 14-63 [facility] Anion gap [Moles/Vol] 12.0 mmol/L Normal 5.0-19.0 [facility] AST [Catalytic activity/Vol] 22 U/L Normal 15-41 [facility] Bilirubin [Mass/Vol] 0.3 mg/dL Normal 0.3-1.2 [facility] Bun/CretRatio 20.2 Normal [facility] Calcium [Mass/Vol] 9.1 mg/dL Normal 8.1-10.1 [facility] Chloride [Moles/Vol] 102 mmol/L Normal 98-107 [facility] CO2 [Moles/Vol] 27 mmol/L Normal 22-32 [facility] Creatinine [Mass/Vol] 0.84 mg/dL Normal 0.60-1.30 [facility] Glucose [Mass/Vol] 80 mg/dL Normal 70-100 [place] [facility] Osmolality-Calc 282 mOsm/kg Normal [facility] Potassium [Moles/Vol] 3.9 mmol/L Normal 3.4-5.1 [facility] Protein [Mass/Vol] 7.3 g/dL Normal 6.5-8.1 [facility] Sodium [Moles/Vol] 141 mmol/L Normal 136-144 [place] [facility] Urea nitrogen [Mass/Vol] 17 mg/dL Normal 8-26 [facility] LDL Calculatedon 08-08-2018 Cholesterol in LDL [Mass/Vol] 144 mg/dL Normal [facility] Comment on above: Result Comment: Calculated LDL is unreliable when Triglyceride result is greater than 400. ZLipidon 08-08-2018 Cholesterol [Mass/Vol] 237 mg/dL High 0-200 [facility] Cholesterol in HDL [Mass/Vol] 49 mg/dL Normal [facility] Triglyceride [Mass/Vol] 222 mg/dL High 0-149 [facility] Vital Signs Date Time Vital Sign Value Performing Clinician Facility 11-13-2024 23:09-0400 Body temperature 98 [degF] Dr. Mandeep Houser DO Work Phone: [facility] 11-13-2024 23:09-0400 Diastolic blood pressure 63 mm[Hg] Dr. Mandeep Houser DO Work Phone: [facility] 11-13-2024 23:09-0400 Heart rate 65 /min Dr. Mandeep Houser DO Work Phone: [facility] 11-13-2024 23:09-0400 Respiratory rate 17 /min Dr. Mandeep Houser DO Work Phone: [facility] 11-13-2024 23:09-0400 SaO2% (BldA) [Mass fraction] 100 % Dr. Mandeep Houser DO Work Phone: [facility] 11-13-2024 23:09-0400 Systolic blood pressure 101 mm[Hg] Dr. Mandeep Houser DO Work Phone: [facility] 11-13-2024 17:55-0400 Body height 160.[address] Mandeep Houser DO Work Phone: [facility] 11-13-2024 17:55-0400 Body mass index (BMI) [Ratio] 35.3 kg/m2 Dr. Mandeep Houser DO Work Phone: [facility] 11-13-2024 17:55-0400 Body weight 90.[address] Mandeep Houser DO Work Phone: [facility] 11-03-2024 15:12-0400 Body height 162.6 cm Morenita Hill APRN.CNP Work Phone: [facility] 11-03-2024 15:12-0400 Body mass index (BMI) [Ratio] 32.62 kg/m2 Morenita Hill LEASING ASSISTANT.PELLETIZER TENDER Work Phone: [facility] 11-03-2024 15:12-0400 Body weight 86.2 kg Morenita Hill LEASING ASSISTANT.PELLETIZER TENDER Work Phone: [facility] 11-03-2024 15:12-0400 Diastolic blood pressure 71 mm[Hg] Morenita Hill LEASING ASSISTANT.PELLETIZER TENDER Work Phone: [facility] 11-03-2024 15:12-0400 Heart rate 70 /min Morenita Hill LEASING ASSISTANT.PELLETIZER TENDER Work Phone: [facility] 11-03-2024 15:12-0400 SaO2% (BldA) [Mass fraction] 93 % Morenita Hill LEASING ASSISTANT.PELLETIZER TENDER Work Phone: [facility] 11-03-2024 15:12-0400 Systolic blood pressure 119 mm[Hg] Morenita Hill LEASING ASSISTANT.PELLETIZER TENDER Work Phone: [facility] 11-03-2024 14:05-0400 Body height 162.6 cm Pili Wells MD Work Phone: [facility] 11-03-2024 14:05-0400 Body mass index (BMI) [Ratio] 33.34 kg/m2 Pili Wells MD Work Phone: [facility] 11-03-2024 14:05-0400 Body weight 88.1 kg Pili Wells MD Work Phone: [facility] 11-03-2024 14:05-0400 Diastolic blood pressure 85 mm[Hg] Pili Wells MD Work Phone: [facility] 11-03-2024 14:05-0400 Heart rate 67 /min Pili Wells MD Work Phone: [facility] 11-03-2024 14:05-0400 Systolic blood pressure 126 mm[Hg] Pili Wells MD Work Phone: [facility] 07-21-2024 15:55-0400 Body mass index (BMI) [Ratio] 34.19 kg/m2 Mandeep Houser DO Work Phone: [facility] 07-21-2024 15:55-0400 Body temperature 97 [degF] Mandeep Houser DO Work Phone: [facility] 07-21-2024 15:55-0400 Body weight 87.54 kg Mandeep Houser DO Work Phone: [facility] 07-21-2024 15:55-0400 Diastolic blood pressure 82 mm[Hg] Mandeep Houser DO Work Phone: [facility] 07-21-2024 15:55-0400 Heart rate 76 /min Mandeep Houser DO Work Phone: [facility] 07-21-2024 15:55-0400 Respiratory rate 20 /min Mandeep Houser DO Work Phone: [facility] 07-21-2024 15:55-0400 Systolic blood pressure 146 mm[Hg] Mandeep Houser DO Work Phone: [facility] 07-08-2024 14:47-0500 Body mass index (BMI) [Ratio] 32.59 kg/m2 Mandeep Houser DO Work Phone: [facility] 07-08-2024 14:47-0500 Body weight 83.46 kg Mandeep Houser DO Work Phone: [facility] 07-08-2024 14:47-0500 Diastolic blood pressure 70 mm[Hg] Mandeep Houser DO Work Phone: [facility] 07-08-2024 14:47-0500 Heart rate 66 /min Mandeep Houser DO Work Phone: [facility] 07-08-2024 14:47-0500 SaO2% (BldA) [Mass fraction] 96 % Mandeep Houser DO Work Phone: [facility] 07-08-2024 14:47-0500 Systolic blood pressure 110 mm[Hg] Mandeep Houser DO Work Phone: [facility] 02-07-2024 14:13-0400 Body mass index (BMI) [Ratio] 34.84 kg/m2 Angel Presidio DO Work Phone: [facility] 02-07-2024 14:13-0400 Body weight 89.2 kg Angel Presidio DO Work Phone: [facility] 02-07-2024 14:13-0400 Diastolic blood pressure 78 mm[Hg] Angel Presidio DO Work Phone: [facility] 02-07-2024 14:13-0400 Heart rate 83 /min Angel Presidio DO Work Phone: [facility] 02-07-2024 14:13-0400 SaO2% (BldA) [Mass fraction] 95 % Angel Presidio DO Work Phone: [facility] 02-07-2024 14:13-0400 Systolic blood pressure 132 mm[Hg] Angel Presidio DO Work Phone: [facility] 01-15-2024 12:54-0400 Diastolic blood pressure 67 mm[Hg] Pili Wells MD Work Phone: [facility] 01-15-2024 12:54-0400 Heart rate 65 /min Pili Wells MD Work Phone: [facility] 01-15-2024 12:54-0400 Systolic blood pressure 104 mm[Hg] Pili Wells MD Work Phone: [facility] 01-15-2024 12:48-0400 Body mass index (BMI) [Ratio] 34.44 kg/m2 Pili Wells MD Work Phone: [facility] 01-15-2024 12:48-0400 Body weight 88.2 kg Pili Wells MD Work Phone: [facility] 01-15-2024 12:48-0400 SaO2% (BldA) [Mass fraction] 96 % Pili Wells MD Work Phone: [facility] Comment on above: 11-01-2023 09:13-0400 Body height 160 cm Mercedes Vera LEASING ASSISTANT.PELLETIZER TENDER Work Phone: [facility] 11-01-2023 09:13-0400 Body mass index (BMI) [Ratio] 34.01 kg/m2 Mercedes Vera LEASING ASSISTANT.PELLETIZER TENDER Work Phone: [facility] 11-01-2023 09:13-0400 Body weight 87.09 kg Mercedes Vera LEASING ASSISTANT.PELLETIZER TENDER Work Phone: [facility] 11-01-2023 09:13-0400 Diastolic blood pressure 79 mm[Hg] Mercedes Vera LEASING ASSISTANT.PELLETIZER TENDER Work Phone: [facility] 11-01-2023 09:13-0400 Heart rate 68 /min Mercedes Vera LEASING ASSISTANT.PELLETIZER TENDER Work Phone: [facility] 11-01-2023 09:13-0400 Systolic blood pressure 125 mm[Hg] Mercedes Vera LEASING ASSISTANT.PELLETIZER TENDER Work Phone: [facility] 10-31-2023 15:08-0400 Body mass index (BMI) [Ratio] 34.37 kg/m2 Mandeep Houser DO Work Phone: [facility] 10-31-2023 15:08-0400 Body temperature 96.4 [degF] Mandeep Houser DO Work Phone: [facility] 10-31-2023 15:08-0400 Body weight 88 kg Mandeep Houser DO Work Phone: [facility] 10-31-2023 15:08-0400 Diastolic blood pressure 80 mm[Hg] Mandeep Houser DO Work Phone: [facility] 10-31-2023 15:08-0400 Heart rate 76 /min Mandeep Houser DO Work Phone: [facility] 10-31-2023 15:08-0400 Respiratory rate 20 /min Mandeep Houser DO Work Phone: [facility] 10-31-2023 15:08-0400 Systolic blood pressure 150 mm[Hg] Mandeep Houser DO Work Phone: [facility] 10-15-2023 11:41-0400 Body mass index (BMI) [Ratio] 34.4 kg/m2 Rupali Nascimento LEASING ASSISTANT.PELLETIZER TENDER Work Phone: [facility] 10-15-2023 11:41-0400 Body weight 88.09 kg Rupali Nascimento LEASING ASSISTANT.PELLETIZER TENDER Work Phone: [facility] 10-15-2023 11:41-0400 Diastolic blood pressure 68 mm[Hg] Rupali Nascimento LEASING ASSISTANT.PELLETIZER TENDER Work Phone: [facility] 10-15-2023 11:41-0400 Heart rate 68 /min Rupali Nascimento LEASING ASSISTANT.PELLETIZER TENDER Work Phone: [facility] 10-15-2023 11:41-0400 Respiratory rate 14 /min Rupali Nascimento LEASING ASSISTANT.PELLETIZER TENDER Work Phone: [facility] 10-15-2023 11:41-0400 SaO2% (BldA) [Mass fraction] 94 % Rupali Nascimento LEASING ASSISTANT.PELLETIZER TENDER Work Phone: [facility] 10-15-2023 11:41-0400 Systolic blood pressure 130 mm[Hg] Rupali Nascimento LEASING ASSISTANT.PELLETIZER TENDER Work Phone: [facility] 10-01-2023 12:22-0400 Body mass index (BMI) [Ratio] 34.15 kg/m2 Alejandrina Yasir LEASING ASSISTANT.PELLETIZER TENDER Work Phone: [facility] 10-01-2023 12:22-0400 Body temperature 97.11 [degF] Alejandrina Yasir LEASING ASSISTANT.PELLETIZER TENDER Work Phone: [facility] 10-01-2023 12:22-0400 Body weight 87.45 kg Alejandrina Yasir LEASING ASSISTANT.PELLETIZER TENDER Work Phone: [facility] 10-01-2023 12:22-0400 Diastolic blood pressure 84 mm[Hg] Alejandrina Yasir LEASING ASSISTANT.PELLETIZER TENDER Work Phone: [facility] 10-01-2023 12:22-0400 Heart rate 80 /min Alejandrina Yasir LEASING ASSISTANT.PELLETIZER TENDER Work Phone: [facility] 10-01-2023 12:22-0400 Respiratory rate 16 /min Alejandrina Yasir LEASING ASSISTANT.PELLETIZER TENDER Work Phone: [facility] 10-01-2023 12:22-0400 SaO2% (BldA) [Mass fraction] 95 % Alejandrina Yasir LEASING ASSISTANT.PELLETIZER TENDER Work Phone: [facility] 10-01-2023 12:22-0400 Systolic blood pressure 118 mm[Hg] Alejandrina Yasir LEASING ASSISTANT.PELLETIZER TENDER Work Phone: [facility] 09-13-2023 11:04-0400 Body mass index (BMI) [Ratio] 34.12 kg/m2 Alejandrina Yasir LEASING ASSISTANT.PELLETIZER TENDER Work Phone: [facility] 09-13-2023 11:04-0400 Body weight 87.36 kg Alejandrina Yasir LEASING ASSISTANT.PELLETIZER TENDER Work Phone: [facility] 09-13-2023 11:04-0400 Diastolic blood pressure 80 mm[Hg] Alejandrina Yasir LEASING ASSISTANT.PELLETIZER TENDER Work Phone: [facility] 09-13-2023 11:04-0400 Heart rate 73 /min Alejandrina Yasir LEASING ASSISTANT.PELLETIZER TENDER Work Phone: [facility] 09-13-2023 11:04-0400 Respiratory rate 16 /min Alejandrina Yasir LEASING ASSISTANT.PELLETIZER TENDER Work Phone: [facility] 09-13-2023 11:04-0400 SaO2% (BldA) [Mass fraction] 94 % Alejandrina Yasir LEASING ASSISTANT.PELLETIZER TENDER Work Phone: [facility] 09-13-2023 11:04-0400 Systolic blood pressure 122 mm[Hg] Alejandrina Yasir LEASING ASSISTANT.PELLETIZER TENDER Work Phone: [facility] 09-05-2023 10:51-0400 Body height 160 cm Thuy Aguirre APRN.PELLETIZER TENDER Work Phone: [facility] 09-05-2023 10:51-0400 Body mass index (BMI) [Ratio] 34.05 kg/m2 Thuy Aguirre LEASING ASSISTANT.PELLETIZER TENDER Work Phone: [facility] 09-05-2023 10:51-0400 Body weight 87.2 kg Thuy Aguirre LEASING ASSISTANT.PELLETIZER TENDER Work Phone: [facility] 09-05-2023 10:51-0400 Diastolic blood pressure 84 mm[Hg] Thuy Aguirre LEASING ASSISTANT.PELLETIZER TENDER Work Phone: [facility] 09-05-2023 10:51-0400 Heart rate 84 /min Thuy Aguirre LEASING ASSISTANT.PELLETIZER TENDER Work Phone: [facility] 09-05-2023 10:51-0400 SaO2% (BldA) [Mass fraction] 97 % Thuy Aguirre LEASING ASSISTANT.PELLETIZER TENDER Work Phone: [facility] 09-05-2023 10:51-0400 Systolic blood pressure 128 mm[Hg] Thuy Aguirre LEASING ASSISTANT.PELLETIZER TENDER Work Phone: [facility] 08-29-2023 15:37-0400 Body mass index (BMI) [Ratio] 33.6 kg/m2 [facility] 08-29-2023 15:17-0400 Body height 160.02 cm [facility] 08-29-2023 15:17-0400 Body weight 86.18 kg [facility] 08-29-2023 14:28-0400 Diastolic blood pressure 82 mm[Hg] [facility] 08-29-2023 14:28-0400 Heart rate 91 /min [facility] 08-29-2023 14:28-0400 SaO2% (BldA) [Mass fraction] 95 % [facility] 08-29-2023 14:28-0400 Systolic blood pressure 125 mm[Hg] [facility] 08-22-2023 10:27-0400 Body temperature 96.91 [degF] Alejandrina Harvey LEASING ASSISTANT.PELLETIZER TENDER Work Phone: [facility] 08-22-2023 10:27-0400 Body weight 87 kg Alejandrina Waldenman LEASING ASSISTANT.PELLETIZER TENDER Work Phone: [facility] 08-22-2023 10:27-0400 Diastolic blood pressure 84 mm[Hg] Alejandrina Waldenman LEASING ASSISTANT.PELLETIZER TENDER Work Phone: [facility] 08-22-2023 10:27-0400 Heart rate 76 /min Alejandrina Waldenman LEASING ASSISTANT.PELLETIZER TENDER Work Phone: [facility] 08-22-2023 10:27-0400 SaO2% (BldA) [Mass fraction] 95 % Alejandrina Waldenman LEASING ASSISTANT.PELLETIZER TENDER Work Phone: [facility] 08-22-2023 10:27-0400 Systolic blood pressure 122 mm[Hg] Alejandrina Waldenman LEASING ASSISTANT.PELLETIZER TENDER Work Phone: [facility] 08-07-2023 14:44-0400 Body height 160 cm Dilcia Bonilla MD Work Phone: [facility] 08-07-2023 14:44-0400 Body weight 86.59 kg Dilcia Bonilla MD Work Phone: [facility] 08-07-2023 14:44-0400 Diastolic blood pressure 82 mm[Hg] Dilcia Bonilla MD Work Phone: [facility] 08-07-2023 14:44-0400 Heart rate 91 /min Dilcia Bonilla MD Work Phone: [facility] 08-07-2023 14:44-0400 SaO2% (BldA) [Mass fraction] 95 % Dilcia Bonilla MD Work Phone: [facility] 08-07-2023 14:44-0400 Systolic blood pressure 125 mm[Hg] Dilcia Bonilla MD Work Phone: [facility] 07-24-2023 13:42-0400 Body temperature 97 [degF] Mandeep Houser DO Work Phone: [facility] 07-24-2023 13:42-0400 Body weight 87.54 kg Mandeep Houser DO Work Phone: [facility] 07-24-2023 13:42-0400 Diastolic blood pressure 80 mm[Hg] Mandeep Houser DO Work Phone: [facility] 07-24-2023 13:42-0400 Heart rate 80 /min Mandeep Houser DO Work Phone: [facility] 07-24-2023 13:42-0400 Respiratory rate 20 /min Mandeep Houser DO Work Phone: [facility] 07-24-2023 13:42-0400 Systolic blood pressure 120 mm[Hg] Mandeep Houser DO Work Phone: [facility] 10-14-2022 14:12-0400 Body temperature 99.81 [degF] Shanell Older LEASING ASSISTANT.PELLETIZER TENDER Work Phone: [facility] 10-14-2022 14:12-0400 Body weight 88.91 kg Shanell Older LEASING ASSISTANT.PELLETIZER TENDER Work Phone: [facility] 10-14-2022 14:12-0400 Diastolic blood pressure 78 mm[Hg] Shanell Older LEASING ASSISTANT.PELLETIZER TENDER Work Phone: [facility] 10-14-2022 14:12-0400 Heart rate 87 /min Shanell Older LEASING ASSISTANT.PELLETIZER TENDER Work Phone: [facility] 10-14-2022 14:12-0400 Respiratory rate 22 /min Shanell Older LEASING ASSISTANT.PELLETIZER TENDER Work Phone: [facility] 10-14-2022 14:12-0400 SaO2% (BldA) [Mass fraction] 94 % Shanell Older LEASING ASSISTANT.PELLETIZER TENDER Work Phone: [facility] 10-14-2022 14:12-0400 Systolic blood pressure 104 mm[Hg] Shanell Older LEASING ASSISTANT.PELLETIZER TENDER Work Phone: [facility] 08-14-2022 11:20-0400 Body weight 87.09 kg Santo Oneill MD Work Phone: [facility] 08-14-2022 11:20-0400 Diastolic blood pressure 70 mm[Hg] Santo Oneill MD Work Phone: [facility] 08-14-2022 11:20-0400 Heart rate 87 /min Santo Oneill MD Work Phone: [facility] 08-14-2022 11:20-0400 SaO2% (BldA) [Mass fraction] 94 % Santo Oneill MD Work Phone: [facility] 08-14-2022 11:20-0400 Systolic blood pressure 110 mm[Hg] Satno Oneill MD Work Phone: [facility] 07-21-2022 10:44-0500 Body weight 89.54 kg Alejandrina Yasir LEASING ASSISTANT.PELLETIZER TENDER Work Phone: [facility] 07-21-2022 10:44-0500 Diastolic blood pressure 78 mm[Hg] Alejandrina Yasir LEASING ASSISTANT.PELLETIZER TENDER Work Phone: [facility] 07-21-2022 10:44-0500 Heart rate 64 /min Alejandrina Yasir LEASING ASSISTANT.PELLETIZER TENDER Work Phone: [facility] 07-21-2022 10:44-0500 SaO2% (BldA) [Mass fraction] 93 % Alejandrina Yasir LEASING ASSISTANT.PELLETIZER TENDER Work Phone: [facility] 07-21-2022 10:44-0500 Systolic blood pressure 130 mm[Hg] Alejandrina Yasir LEASING ASSISTANT.PELLETIZER TENDER Work Phone: [facility] 02-13-2022 11:07-0400 Body height 162.6 cm aSnto Oneill MD Work Phone: [facility] 02-13-2022 11:07-0400 Body weight 89.09 kg Santo Oneill MD Work Phone: [facility] 02-13-2022 11:07-0400 Diastolic blood pressure 84 mm[Hg] Santo Oneill MD Work Phone: [facility] 02-13-2022 11:07-0400 Heart rate 80 /min Santo Oneill MD Work Phone: [facility] 02-13-2022 11:07-0400 Systolic blood pressure 136 mm[Hg] Santo Oneill MD Work Phone: [facility] 01-20-2022 10:46-0400 Body weight 87.91 kg Alejandrina Yasir LEASING ASSISTANT.PELLETIZER TENDER Work Phone: [facility] 01-20-2022 10:46-0400 Diastolic blood pressure 78 mm[Hg] Alejandrina Yasir LEASING ASSISTANT.PELLETIZER TENDER Work Phone: [facility] 01-20-2022 10:46-0400 Heart rate 79 /min Alejandrina Yasir LEASING ASSISTANT.PELLETIZER TENDER Work Phone: [facility] 01-20-2022 10:46-0400 SaO2% (BldA) [Mass fraction] 95 % Alejandrina Yasir LEASING ASSISTANT.PELLETIZER TENDER Work Phone: [facility] 01-20-2022 10:46-0400 Systolic blood pressure 124 mm[Hg] Alejandrina Yasir LEASING ASSISTANT.PELLETIZER TENDER Work Phone: [facility] 12-19-2021 09:10-0400 Body temperature 97.2 [degF] Sincere [place] Hallie PA-C Work Phone: [facility] 12-19-2021 09:10-0400 Diastolic blood pressure 70 mm[Hg] Isncere Maddie PA-C Work Phone: [facility] 12-19-2021 09:10-0400 Heart rate 76 /min Sincere Maddie PA-C Work Phone: [facility] 12-19-2021 09:10-0400 SaO2% (BldA) [Mass fraction] 92 % Sincere Maddie PA-C Work Phone: [facility] 12-19-2021 09:10-0400 Systolic blood pressure 128 mm[Hg] [place]re [place] PA-C Work Phone: [facility] 12-05-2021 10:53-0400 Body temperature 98.2 [degF] Wes Marshall MD Work Phone: [facility] 12-05-2021 10:53-0400 Heart rate 60 /min Wes Marshall MD Work Phone: [facility] 12-05-2021 10:53-0400 Respiratory rate 8 /min Wes Marshall MD Work Phone: [facility] 12-05-2021 10:53-0400 SaO2% (BldA) [Mass fraction] 98 % Wes Marshall MD Work Phone: [facility] 12-05-2021 10:45-0400 Diastolic blood pressure 70 mm[Hg] Wse Marshall MD Work Phone: [facility] 12-05-2021 10:45-0400 Systolic blood pressure 135 mm[Hg] Wes Marshall MD Work Phone: [facility] 11-02-2021 13:29-0400 Body height 162.6 cm Sincere Maddie PA-C Work Phone: [facility] 11-02-2021 13:29-0400 Body temperature 97.3 [degF] Sincere Maddie PA-C Work Phone: [facility] 11-02-2021 13:29-0400 Body weight 86.64 kg [place]re [place] PA-C Work Phone: [facility] 11-02-2021 13:29-0400 Diastolic blood pressure 62 mm[Hg] Sincere Maddie PA-C Work Phone: [facility] 11-02-2021 13:29-0400 Heart rate 80 /min Sincere [place] PA-C Work Phone: [facility] 11-02-2021 13:29-0400 SaO2% (BldA) [Mass fraction] 94 % [place]re [place] PA-C Work Phone: [facility] 11-02-2021 13:29-0400 Systolic blood pressure 118 mm[Hg] Sincere Perkins PA-C Work Phone: [facility] 10-19-2021 11:38-0400 Body weight 86.73 kg Alejandrina Yasir LEASING ASSISTANT.PELLETIZER TENDER Work Phone: [facility] 10-19-2021 11:38-0400 Diastolic blood pressure 92 mm[Hg] Alejandrina Yasir LEASING ASSISTANT.PELLETIZER TENDER Work Phone: [facility] 10-19-2021 11:38-0400 Heart rate 79 /min Alejandrina Yasir LEASING ASSISTANT.PELLETIZER TENDER Work Phone: [facility] 10-19-2021 11:38-0400 Respiratory rate 16 /min Alejandrina Yasir LEASING ASSISTANT.PELLETIZER TENDER Work Phone: [facility] 10-19-2021 11:38-0400 SaO2% (BldA) [Mass fraction] 96 % Alejandrina Yasir LEASING ASSISTANT.PELLETIZER TENDER Work Phone: [facility] 10-19-2021 11:38-0400 Systolic blood pressure 132 mm[Hg] Alejandrina Yasir LEASING ASSISTANT.PELLETIZER TENDER Work Phone: [facility] 09-01-2021 15:38-0400 Body height 160 cm Alejandrina Yasir LEASING ASSISTANT.PELLETIZER TENDER Work Phone: [facility] 09-01-2021 15:38-0400 Body weight 88.45 kg Alejandrina Yasir LEASING ASSISTANT.PELLETIZER TENDER Work Phone: [facility] 09-01-2021 15:38-0400 Diastolic blood pressure 90 mm[Hg] Alejandrina Yasir LEASING ASSISTANT.PELLETIZER TENDER Work Phone: [facility] 09-01-2021 15:38-0400 Heart rate 69 /min Alejandrina Yasir LEASING ASSISTANT.PELLETIZER TENDER Work Phone: [facility] 09-01-2021 15:38-0400 SaO2% (BldA) [Mass fraction] 96 % Alejandrina Yasir LEASING ASSISTANT.PELLETIZER TENDER Work Phone: [facility] 09-01-2021 15:38-0400 Systolic blood pressure 146 mm[Hg] Alejandrina Harvey APRN.PELLETIZER TENDER Work Phone: [facility] 02-24-2020 12:13-0400 BMI (Body Mass Index) 34.9 kg/m2 Mane Solis [facility] Work Phone: 02-24-2020 12:13-0400 Body weight 89.36 kg Mane Solis [facility] Work Phone: 02-24-2020 12:13-0400 BP Diastolic 80 mm[Hg] Mane Solis [facility] Elvie Work Phone: 02-24-2020 12:13-0400 BP Systolic 160 mm[Hg] Mane Solis [facility] Work Phone: 02-24-2020 12:13-0400 BSA (Body Surface Area) 1.92 m2 Mane Solis [facility] system[facility] Work Phone: 02-04-2020 16:16-0400 BMI (Body Mass Index) 35.43 kg/m2 Rafael Frank III [facility] J[facility] Work Phone: 02-04-2020 16:16-0400 Body weight 90.72 kg Rafael Frank III [facility] Work Phone: 02-04-2020 16:16-0400 BP Diastolic 78 mm[Hg] Rafael Frank III [facility] Jareth Work Phone: 02-04-2020 16:16-0400 BP Systolic 154 mm[Hg] [facility] Work Phone: 02-04-2020 16:16-0400 BSA (Body Surface Area) 1.93 m2 Rafael Frank III [facility] Work Phone: 02-04-2020 16:16-0400 Height 160.02 [...] BP Diastolic 92 mm[Hg] Rafael Frank III [employer] [facility] [place] Work Phone: 01-28-2020 15:21-0400 BP Systolic 132 mm[Hg] Rafael Frank III [facility] [place] Work Phone: 01-28-2020 15:21-0400 BSA (Body Surface Area) 1.93 m2 Rafael Templeton Work Phone: 01-28-2020 15:21-0400 Height 160.02 cm Rafael Frank III [facility] [place] Work Phone: 01-22-2020 12:56-0400 BMI (Body Mass Index) 35.04 kg/m2 Rafael Templeton Work Phone: 01-22-2020 12:56-0400 Body weight 89.72 kg Rafael Frank III [facility] [place] Work Phone: 01-22-2020 12:56-0400 BP Diastolic 84 mm[Hg] Rafael Frank III [employer] [place] Work Phone: 01-22-2020 12:56-0400 BP Systolic 118 mm[Hg] Rafael Frank III [employer] [place] Work Phone: 01-22-2020 12:56-0400 BSA (Body Surface Area) 1.92 m2 Rafael Templeton Work Phone: 01-22-2020 12:56-0400 Height 160.02 cm Rafael Templeton Work Phone: 01-22-2020 12:56-0400 Pulse (Heart Rate) 75 /min Rafael MendenhallRI TISHA Templeton Work Phone: 01-22-2020 12:56-0400 Respiratory Rate 16 /min Rafael Templeton Work Phone: Encounters Encounter Date Encounter Type Care Provider Facility Start: 11-13-2024 End: 11-13-2024 Emergency department patient visit Dr. Mandeep Houser DO Work Phone: -Emergency Department Work Phone: Start: 11-05-2024 End: 11-05-2024 ambulatory Chasidy yLn MA [employer] Start: 11-05-2024 End: 11-05-2024 Patient encounter procedure Chasidy Lyn MA [employer] 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 Start: 11-03-2024 End: 11-03-2024 ambulatory MANDEEP HOUSER Facility:[facility] Start: 10-21-2024 End: 10-21-2024 Patient encounter procedure Mandeep Houser DO Work Phone: [facility] Comment on above: Chronic bilateral th oracic back pain (Primary Dx); Somatic dysfunction of spine, lumbar; Somatic dysfunction of rib; Somatic dysfunction of head region; Somatic dysfunction of spine, cervical; Somatic dysfunction of spine, thoracic Start: 10-21-2024 End: 10-21-2024 ambulatory MANDEEP ALFARORISON Facility:[facility] Start: 09-30-2024 End: 09-30-2024 ambulatory MANDEEP ALFARORISON Facility:[facility] Start: 09-23-2024 End: 09-23-2024 ambulatory MANDEEP ALFARORISON Facility:[facility] Start: 09-15-2024 End: 09-15-2024 [facility] Start: 09-15-2024 End: 09-15-2024 Patient encounter procedure Dorinda Young MA [facility] Comment on above: Population Health Na vigation Outreach ([facility], High Risk /) Start: 08-27-2024 End: 08-27-2024 Telephone encounter Dilcia Bonilla MD Work Phone: Cardiology Start: 08-25-2024 End: 08-25-2024 ambulatory MANDEEP HOUSER Facility:[facility] Start: 08-25-2024 End: 08-25-2024 Patient encounter [...] Start: 08-15-2024 End: 08-15-2024 ambulatory MANDEEP ALFARORISON Facility:[facility] Start: 08-04-2024 End: 08-04-2024 ambulatory MANDEEP HOUSER Facility:[facility] Start: 08-04-2024 End: 08-04-2024 Patient encounter procedure Mandeep Houser DO Work Phone: [facility] Comment on above: Chronic bilateral th oracic back pain (Primary Dx); Somatic dysfunction of rib; Somatic dysfunction of spine, thoracic; Somatic dysfunction of spine, cervical; Somatic dysfunction of head region; Somatic dysfunction of pelvic region Start: 07-21-2024 End: 07-21-2024 ambulatory MANDEEP ALFARORISON Facility:[facility] Start: 07-21-2024 End: 07-21-2024 Patient encounter procedure Mandeep Houser DO Work Phone: [facility] Comment on above: Acute cough (Primary Dx); Vitamin B12 deficiency; Fatigue, unspecified type; Nausea; Hypothyroidism, acquired; Chronic 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); Vitamin D deficiency Start: 07-08-2024 End: 07-08-2024 Subsequent hospital visit by physician Joe Counts [facility] [address] Work Phone: Radiology Comment on above: Acute cough [R05.1] Start: 07-08-2024 End: 07-08-2024 ambulatory MANDEEP HOUSER Facility:[facility] Start: 07-08-2024 End: 07-08-2024 Patient encounter procedure Mandeep Houser DO Work Phone: [facility] Comment on above: Vitamin B12 deficien cy (Primary Dx); Fatigue, unspecified type; Lightheadedness; Acute cough; Chronic 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); Nausea; Hypothyroidism, acquired; Anemia, unspecified type; Vitamin D deficiency; Nonischemic cardiomyopathy (HCC) Start: 07-01-2024 End: 08-01-2024 Telephone encounter Mandeep Elsi Houser DO Work Phone: [facility] Start: 06-20-2024 End: 06-20-2024 ambulatory MANDEEP ALFARORISON Facility:[facility] Start: 06-20-2024 End: 06-20-2024 Patient encounter procedure Mandeep Alfarorison DO Work Phone: [facility] Comment on above: Chronic bilateral th oracic back pain (Primary Dx); Somatic dysfunction of rib; Somatic dysfunction of head region; Somatic dysfunction of spine, thoracic; Somatic dysfunction of spine, lumbar; Somatic dysfunction of spine, cervical; Somatic dysfunction of pelvic region Start: 05-30-2024 End: 05-30-2024 Patient encounter procedure Mandeep Alfarorison DO Work Phone: [facility] [place] Comment on above: Chronic bilateral th oracic back pain (Primary Dx); Somatic dysfunction of rib; Somatic dysfunction of spine, lumbar; Somatic dysfunction of spine, thoracic; Somatic dysfunction of spine, cervical; Somatic dysfunction of pelvic region; Somatic dysfunction of head region Start: 05-30-2024 End: 05-30-2024 ambulatory MANDEEP HOUSER Facility:[facility] Start: 05-12-2024 End: 05-12-2024 Patient encounter procedure Mandeep Elsi AlfaroHouser DO Work Phone: [facility] Comment on above: Chronic bilateral th oracic back pain (Primary Dx); Somatic dysfunction of rib; Somatic dysfunction of spine, thoracic; Somatic dysfunction of spine, cervical; Somatic dysfunction of head region; Somatic dysfunction of spine, lumbar Start: 05-12-2024 End: 05-12-2024 ambulatory MANDEEP HOUSER Facility:[facility] Start: 04-22-2024 End: 04-22-2024 ambulatory MANDEEP HOUSER Facility:[facility] Start: 04-22-2024 End: 04-22-2024 Patient encounter procedure Mandeep Elsi AlfaroHouser DO Work Phone: [facility] Comment on above: Suprapubic pain (Richi maritza Dx); Somatic dysfunction of head region; Chronic bilateral thoracic back pain; Somatic dysfunction of rib; Somatic dysfunction of spine, cervical; Somatic dysfunction of spine, thoracic; Somatic dysfunction of pelvic region; Somatic dysfunction of spine, lumbar Start: 04-22-2024 End: 04-22-2024 ambulatory MANDEEP HOUSER Facility:[facility] Start: 04-08-2024 End: 04-08-2024 Refill Mandeep L Houser DO Work Phone: [facility] Comment on above: Refill Request Start: 03-27-2024 End: 03-27-2024 Emergency department patient visit Mandeep Houser Facility:[facility] Start: 03-21-2024 End: 03-24-2024 Telephone encounter Mandeep Houser DO Work Phone: [facility] Comment on above: Medication Problem Start: 03-18-2024 End: 03-18-2024 ambulatory MANDEEP HOUSER Facility:[facility] Start: 03-05-2024 End: 03-06-2024 Telephone encounter Mandeep Houser DO Work Phone: [facility] Start: 02-12-2024 End: 02-12-2024 Patient encounter procedure Mandeep Houser DO Work Phone: [facility] Comment on above: Hypothyroidism, acqu ired (Primary Dx); Chronic bilateral thoracic back pain; Somatic dysfunction of rib; Somatic dysfunction of spine, cervical; Somatic dysfunction of spine, thoracic; Somatic dysfunction of spine, lumbar; Somatic dysfunction of head region Start: 02-12-2024 End: 02-12-2024 ambulatory MANDEEP HOUSER Facility:[facility] Start: 02-07-2024 End: 02-07-2024 [facility] Start: 02-07-2024 End: 02-07-2024 Patient encounter procedure Angel Castro DO Work Phone: Cardiology Comment on above: Nonischemic cardiomy opathy (HCC) (Primary Dx) Start: 01-29-2024 End: 01-29-2024 ambulatory MANDEEP HOUSER Facility:[facility] Start: 01-29-2024 End: 01-29-2024 Patient encounter procedure Mandeep Houser DO Work Phone: [facility] Comment on above: Hypothyroidism, acqu ired (Primary Dx); Chronic bilateral thoracic back pain; Somatic dysfunction of spine, thoracic; Somatic dysfunction of spine, cervical; Somatic dysfunction of rib; Somatic dysfunction of spine, lumbar; Somatic dysfunction of head region Start: 01-15-2024 End: 01-15-2024 ambulatory MANDEEP HOUSER Facility: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 Start: 12-23-2023 ambulatory [facility] Facility:[facility] Start: 12-12-2023 End: 12-12-2023 [facility]ulatory [facility] Start: 12-12-2023 End: 12-12-2023 Patient encounter procedure Mandeep Houser DO Work Phone: [facility] Comment on above: Chronic bilateral th oracic back pain (Primary Dx); Somatic dysfunction of head region; Somatic dysfunction of spine, cervical; Somatic dysfunction of rib; Somatic dysfunction of spine, thoracic; Somatic dysfunction of pelvic region Start: 12-12-2023 End: 12-12-2023 ambulatory MANDEEP HOUSER Facility:[facility] Start: 12-06-2023 Telephone encounter Pili ricardo MD Work Phone: Cardiology Start: 12-05-2023 End: 12-05-2023 Subsequent hospital visit by physician [facility] Work Phone: Cardiology Lab Comment on above: Chronic systolic con gestive heart failure (HCC) [I50.22] Start: 11-28-2023 Telephone encounter Mandeep ochoa DO Work Phone: NOC Comment on above: Transition Of Care Start: 11-27-2023 End: 11-27-2023 ambulatory MANDEEP ELDERON Facility: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) Start: 11-15-2023 End: 11-18-2023 ambulatory [facility] Facility:[facility] Start: 11-12-2023 End: 12-12-2023 ambulatory [facility] Facility:[facility] Start: 11-07-2023 End: 11-07-2023 Patient encounter procedure Mandeep Houser DO Work Phone: [facility] Comment on above: Acute midline low ba ck pain without sciatica (Primary Dx) Start: 11-07-2023 Telephone encounter Mandeep ochoa DO Work Phone: [facility] Comment on above: Appointment; OMT Start: 11-06-2023 Telephone encounter Mandeep ochoa DO Work Phone: [facility] Comment on above: Results (CT Brain) Start: 11-05-2023 End: 11-11-2023 ambulatory [facility] Facility:[facility] Start: 11-01-2023 ambulatory MANDEEP Calzada HOUSER Facil ity:[facility] Start: 11-01-2023 End: 11-01-2023 Subsequent hospital visit by physician [facility] Work Phone: [facility] Comment on above: Word finding difficu lty [R47.89] Start: 11-01-2023 End: 11-01-2023 Patient encounter procedure Mercedes Vera APRN.PELLETIZER TENDER Work Phone: Cardiology Comment on above: Presence of cardiac resynchronization therapy defibrillator (RN RENAL-D) (Primary Dx); Non-ischemic cardiomyopathy (HCC); LBBB (left bundle branch block) Start: 10-31-2023 End: 10-31-2023 Patient encounter procedure Mandeep Houser DO Work Phone: [facility] Comment on above: Hypothyroidism, acqu ired (Primary [...] Start: 10-17-2023 Telephone encounter Rupali Zak chandra LEASING ASSISTANT.PELLETIZER TENDER Work Phone: [facility] Comment on above: Results Start: 10-15-2023 End: 10-15-2023 Patient encounter procedure Rupali Nascimento MELI.PELLETIZER TENDER Work Phone: [facility] Comment on above: Localized swelling o f left foot (Primary Dx); Foot pain, left; 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 Start: 10-11-2023 End: 10-11-2023 Refill Mandeep Houser DO Work Phone: [facility] Comment on above: Refill Request Left Great Toe Pain Start: 10-10-2023 End: 10-12-2023 ambulatory [facility] Facility:[facility] Start: 10-02-2023 End: 10-02-2023 Office outpatient visit 15 minutes Pili Wells MD Work Phone: Cardiology Comment on above: Chronic systolic con gestive heart failure (HCC) (Primary Dx); Left bundle branch block; Nonischemic cardiomyopathy (HCC); Hypertension with heart disease Start: 10-01-2023 End: 10-01-2023 Patient encounter procedure Alejandrina Harvey APRN.PELLETIZER TENDER Work Phone: [facility] Comment on above: Acute non-recurrent pansinusitis (Primary Dx) Start: 09-30-2023 Telephone encounter Oliverio Del Cid Work Phone: Podiatry Comment on above: Results Start: 09-25-2023 Telephone encounter Thuy Aguirre APRN.PELLETIZER TENDER Work Phone: [place] Provider Adult Comment on above: Results (FLP) Start: 09-24-2023 End: 09-24-2023 Subsequent hospital visit by physician Xr Counts Include [address] [facility] [employer] Work Phone: Radiology Comment on above: Repetitive stress in jury [X50.3XXA] Start: 09-24-2023 End: 09-24-2023 Patient encounter procedure Oliverio Mata Work Phone: Podiatry Comment on above: Repetitive stress in jury (Primary Dx); Venous insufficiency Start: 09-19-2023 Follow-up encounter Dilcia Bonilla MD Work Phone: [facility] Department Start: 09-19-2023 Patient encounter procedure Dilcia Bonilla MD Work Phone: [facility] Start: 09-17-2023 Telephone encounter Angel Castro DO Work Phone: Cardiology Comment on above: Patient Question (inga dennison) Results Patient Update Start: 09-13-2023 End: 09-13-2023 Subsequent hospital visit by physician Xr Counts Include [address] Black Work Phone: Radiology Comment on above: Foot pain, left [M79 .672] Start: 09-13-2023 End: 09-13-2023 Patient encounter procedure Alejandrina Harvey APRN.PELLETIZER TENDER Work Phone: [facility] Comment on above: Foot pain, left (Richi maritza Dx); Localized swelling of left foot Start: 09-10-2023 End: 09-11-2023 ambulatory [facility] [place] Work Phone: Start: 09-10-2023 End: 09-11-2023 Discharged [facility] Work Phone: Start: 09-06-2023 Encounter for meera l adult medical examination without abnormal findings [facility] [place] Start: 09-05-2023 End: 09-05-2023 Patient encounter procedure Thuy Aguirre APRN.PELLETIZER TENDER Work Phone: Cardiology Comment on above: Chronic systolic con gestive heart failure (HCC) (Primary Dx); Nonischemic cardiomyopathy (HCC); Mixed hyperlipidemia; LBBB (left bundle branch block); Presence of cardiac resynchronization therapy defibrillator (RN RENAL-D); Primary hypertension; 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; Valvular heart disease Start: 09-03-2023 Registered Rec[facility]ring [facility] Work Phone: Start: 08-29-2023 End: 08-29-2023 ambulatory [facility] Work Phone: Start: 08-29-2023 End: 08-29-2023 Patient encounter procedure [facility] Work Phone: Start: 08-29-2023 End: 08-29-2023 ambulatory [facility] Facility:[facility] Start: 08-27-2023 Telephone encounter Alejandrina Johnson APRN.PELLETIZER TENDER Work Phone: [facility] Comment on above: Patient Question; Inga moralesnt Update Start: 08-23-2023 Telephone encounter Pili ricardo MD Work Phone: Cardiology Start: 08-22-2023 End: 08-22-2023 Patient encounter procedure Alejandrina Harvey LEASING ASSISTANT.PELLETIZER TENDER Work Phone: [facility] Comment on above: Vagina, candidiasis (Primary Dx); Burning with urination; 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; Acute cough; Laryngopharyngeal reflux (LPR) Start: 08-07-2023 Follow-up encounter Dilcia Bonilla MD Work Phone: [facility] Start: 08-07-2023 End: 08-07-2023 Patient encounter procedure Dilcia Bonilla MD Work Phone: [facility] Department Comment on above: LBBB (left bundle br anch block) (Primary Dx); Presence of cardiac resynchronization therapy defibrillator (RN RENAL-D); Acute on chronic systolic CHF (congestive heart failure) (HCC) Start: 08-06-2023 Telephone encounter Pili ricardo MD Work Phone: Cardiology Start: 07-26-2023 Telephone encounter Dilcia Bonilla MD Work Phone: Cardiology Comment on above: Patient Update Start: 07-25-2023 Telephone encounter Mandeep ochoa DO Work Phone: [facility] Comment on above: Results Refill Request Start: 07-24-2023 End: 07-24-2023 Patient encounter procedure Mandeep Houser DO Work Phone: [facility] Comment on above: Chronic diastolic co ngestive heart failure (HCC) (Primary Dx); Hypothyroidism, acquired; Vitamin D deficiency; Fatigue, unspecified type; Acute hypoxic respiratory failure (HCC); Chronic bronchitis, unspecified chronic bronchitis type (HCC); Atrial fibrillation, unspecified type (HCC); SVT (supraventricular tachycardia) (HCC); Homozygous Factor V Leiden mutation (HCC) Start: 07-20-2023 ambulatory Fitz ramirez RN Work Phone: [facility] Start: 07-20-2023 Telephone encounter Mandeep Millard birdieanh DO Work Phone: NOC Comment on above: Follow Up (All Clear ) Transition Of Care ( TCM Initial [facility] Discharge 07/18/23) Start: 07-17-2023 Telephone encounter Morenita Griffin res, APRN.CNP Work Phone: [facility] Provider Adult Comment on above: Appointment Start: 07-13-2023 End: 07-18-2023 Evaluation and management of inpatient MANDEEP HOUSER Facility:[facility] Start: 07-13-2023 Telephone encounter Rahul messina MD Work Phone: [facility] Provider Adult Comment on above: Hospital To Hospital Start: 07-10-2023 End: 07-13-2023 Evaluation and management of inpatient REMINGTON CAI Facility:[facility] Start: 06-12-2023 End: 06-12-2023 ambulatory FLACA GREENFIELD Facility:[facility] Start: 05-17-2023 End: 05-17-2023 Subsequent hospital visit by physician Joe Counts Include [address] Black Work Phone: Radiology Comment on above: Chronic cough [R05.3 ] Start: 04-26-2023 Telephone encounter Mandeep ochoa DO Work Phone: [facility] [place] Comment on above: Results Start: 04-17-2023 Telephone encounter Mandeep ochoa DO Work Phone: [facility] [place] Start: 04-09-2023 End: 04-09-2023 Patient encounter procedure Santo Oneill MD Work Phone: Cardiology Comment on above: Primary hypertension ; Chronic diastolic congestive heart failure (HCC) Start: 03-01-2023 Telephone encounter Mandeep ochoa DO Work Phone: [facility] Comment on above: Results Start: 01-09-2023 End: 01-09-2023 Refill Santo Oneill MD Work Phone: Cardiology Comment on above: Refill Request Hypothyroidism, unsp ecified type (Primary Dx); Somatic dysfunction of spine, cervical; Somatic dysfunction of rib; Somatic dysfunction of head region; Chronic bilateral thoracic back pain; Chronic neck pain; Neck fullness Start: 12-22-2022 Telephone encounter Mandeep ochoa DO Work Phone: [facility] [place] Comment on above: Results Start: 12-19-2022 Telephone encounter Mandeep ochoa DO Work Phone: [facility] Comment on above: Results Start: 12-14-2022 End: 12-14-2022 Subsequent hospital visit by physician Joe Counts Include [address] [place] Work Phone: Radiology Comment on above: SOB (shortness of br eath) [R06.02] Start: 10-24-2022 Telephone encounter Oliverio Cross gretadiane Work Phone: Podiatry Comment on above: Orders Start: 10-15-2022 Telephone encounter Estelita hess LEASING ASSISTANT.PELLETIZER TENDER Work Phone: [facility] Comment on above: Results Start: 10-14-2022 End: 10-14-2022 Patient encounter procedure Shanellraghav Cox LEASING ASSISTANT.PELLETIZER TENDER Work Phone: [facility] Comment on above: Acute cough (Primary Dx); Sore throat Start: 10-10-2022 End: 10-10-2022 Patient encounter procedure Mandeep Eldervalerie MENDOZA Work Phone: [facility] [place] Comment on above: Chronic bilateral th oracic [...] 09-04-2022 Subsequent hospital visit by physician Ct Counts Include [address] [facility] Wstr (I-Stat) Work Phone: Cat Scan Comment [...] Mixed hyperlipidemia Start: 08-03-2022 [facility] Start: 07-26-2022 Telephone encounter Alejandrina Johnson APRN.PELLETIZER TENDER Work Phone: [facility] Comment on above: Results Start: 07-25-2022 End: 07-25-2022 Subsequent hospital visit by physician Bone Density Counts Include [address] Work Phone: Radiology Comment on above: Screening for osteop orosis [Z13.820] Start: 07-21-2022 End: 07-21-2022 Patient encounter procedure Alejandrina Harvey APRN.PELLETIZER TENDER Work Phone: [facility] Comment on above: Hypothyroidism, unsp ecified type (Primary Dx); Primary hypertension; Mixed hyperlipidemia; Vitamin D deficiency; Asymptomatic menopause; Encounter for vitamin deficiency screening; Screening for diabetes mellitus; Elevated glucose; Encounter for immunization; Screening for osteoporosis; Encounter for screening for osteoporosis Start: 07-18-2022 End: 07-18-2022 Patient encounter procedure Mandeep Houser DO Work Phone: [facility] Comment on above: Chronic right-sided thoracic back pain (Primary Dx); Somatic dysfunction of spine, cervical; Somatic dysfunction of spine, thoracic; Somatic dysfunction of rib; Rib pain on right side Start: 07-03-2022 End: 07-03-2022 Patient encounter procedure Mandeep Houser DO Work Phone: [facility] Comment on above: Chronic bilateral th oracic back pain (Primary Dx); Somatic dysfunction of rib; Somatic dysfunction of spine, thoracic; Somatic dysfunction of spine, cervical; Rib pain on right side; Somatic dysfunction of head region Start: 05-24-2022 Telephone encounter Mandeep ochoa DO Work Phone: [facility] [place] Start: 05-22-2022 End: 05-22-2022 Patient encounter procedure Mandeep Houser DO Work Phone: [facility] [place] Comment on above: Dysuria (Primary Dx) ; Urticaria; Food allergy; Allergic urticaria; Somatic dysfunction of spine, thoracic; Somatic dysfunction of rib; Somatic dysfunction of spine, cervical; Rib pain on right side; Somatic dysfunction of head region Start: 05-16-2022 Refill Santo Oneill MD Work Phone: Cardiology Comment on above: Refill Request Start: 05-03-2022 Telephone encounter Mandeep ochoa DO Work Phone: [address] [place] [address] Comment on above: Patient Question Start: 05-03-2022 End: 05-03-2022 Patient encounter procedure Mandeep Houser DO Work Phone: [facility] Comment on above: Rib pain on right si de (Primary Dx); Somatic dysfunction of spine, cervical; Somatic dysfunction of rib; Somatic dysfunction of spine, thoracic Start: 04-05-2022 ambulatory No Pcp (Historical) Ref erring Physician Start: 03-31-2022 ambulatory No Pcp (Historical) Ref erring Physician Start: 03-13-2022 Telephone encounter Alejandrina Johnson APRN.CNP Work Phone: [facility] Comment on above: Results Start: 03-10-2022 Telephone encounter Alejandrina Johnson APRN.CNP Work Phone: [facility] [place] Comment on above: Consult Start: 02-13-2022 End: 02-13-2022 Patient encounter procedure Santo Oneill MD Work Phone: Cardiology Comment on above: Cardiomegaly (Primar y Dx); Primary hypertension; Chronic diastolic congestive heart failure (HCC); Palpitations; Acute on chronic systolic CHF (congestive heart failure) (HCC) Start: 01-20-2022 End: 01-20-2022 Patient encounter procedure Alejandrina Harvey APRN.CNP Work Phone: [facility] Comment on above: Routine physical exa mination (Primary Dx); Primary hypertension; Mixed hyperlipidemia; 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); Vitamin D deficiency; Hypothyroidism, unspecified type Start: 01-20-2022 End: 01-20-2022 Physical examination Alejandrina Harvey APRN.CNP Work Phone: [facility] Start: 01-13-2022 Telephone encounter Estelita Culp APRN.CNP Work Phone: Cardiology Comment on above: Results Start: 12-27-2021 Refill Mandeep Gamble son DO Work Phone: [facility] Comment on above: Refill Request Start: 12-19-2021 End: 12-19-2021 Patient encounter procedure Sincere Perkins PA-C Work Phone: General Surgery Comment on above: Diverticulosis (Prim moni Dx); History of Clostridium difficile colitis; Abdominal bloating Start: 12-08-2021 Telephone encounter Santo Oneill MD Work Phone: Cardiology Comment on above: Patient Question Start: 12-05-2021 End: 12-05-2021 Subsequent hospital visit by physician Wes Marshall MD Work Phone: [facility] Endoscopy Comment on above: Abdominal bloating [...] ambulatory Mandeep Gamble son DO [facility] Phone[facility] Start: 11-01-2021 Patient encounter procedure Mandeep Houser DO Work Phone: General Surgery Comment on above: Outpatient [place] [facility] Start: 10-27-2021 Telephone encounter Estelita Culp APRN.CNP Work Phone: [facility] Cardiology Comment on above: Results Start: 10-27-2021 End: 10-27-2021 Subsequent hospital visit by physician Ct Counts Include [address] W[facility] (I-Stat) Work Phone: Cat Scan Comment on above: Diverticulitis [K57. 92] Start: 10-24-2021 ambulatory Mandeep Gamble son DO Work Phone: [facility] Start: 10-24-2021 Patient encounter procedure Mandeep Houser DO Work Phone: [facility] [place] Comment on above: Outpatient [place] [facility] Start: 10-24-2021 Telephone encounter Estelita Culp MELI.PELLETIZER TENDER Work Phone: [employer] Comment on above: Preparations For Pro cedures Start: 10-19-2021 End: 10-19-2021 Patient encounter procedure Alejandrina Harvey MELI.PELLETIZER TENDER Work Phone: [facility] Comment on above: Diverticulitis (Prim moni Dx); RLQ abdominal pain; Lower abdominal pain Start: 09-21-2021 End: 09-21-2021 Patient encounter procedure Mandeep Houser DO Work Phone: [facility] Comment on above: Rib pain (Primary Dx ); Somatic dysfunction of head region; Somatic dysfunction of spine, cervical; Somatic dysfunction of rib; Somatic dysfunction of spine, thoracic; Neck pain Start: 09-19-[address] moyatoby MELI.PELLETIZER TENDER Work Phone: [facility] Comment on above: Results Start: 09-02-2021 Telephone encounter Alejandrina leslie MELI.PELLETIZER TENDER Work Phone: [facility] Comment on above: Results Start: 09-01-2021 End: 09-01-2021 Subsequent hospital visit by physician Joe Counts Include [address] Work Phone: Radiology Comment on above: Chronic left shoulde r pain [M25.512, G89.29] Start: 09-01-2021 End: 09-01-2021 Patient encounter procedure Alejandrina Harvey MELI.PELLETIZER TENDER Work Phone: [facility] Comment on above: Chronic left shoulde r pain (Primary Dx); Left elbow pain; Primary hypertension; Mixed hyperlipidemia; Hypokalemia; Screening for lipid disorders; Screening for diabetes mellitus; Screening for thyroid disorder; Encounter for vitamin deficiency screening; Body mass index (BMI) 34.0-34.9, adult ; Abnormal finding of blood chemistry, unspecified Start: 08-29-2021 Telephone encounter Mandeep ochoa DO Work Phone: [facility] Comment on above: Appointment Start: 08-23-2021 ambulatory Farzana Rodriguez LPN [facility] Start: 08-15-2021 Documentation procedure Mammog hermann Coordinator [facility] Start: 08-15-2021 Letter encounter Mammography Coordinator [facility] Department Start: 08-15-2021 End: 08-15-2021 Subsequent hospital visit by physician Screen Mammo Counts Include [address] [facility] Mammogram Comment on above: Encounter for screen ing mammogram for breast cancer [Z12.31] Start: 08-09-2021 End: 08-09-2021 ambulatory Estelita Maradiaga PT Work Phone: [facility] Comment on above: Left shoulder pain, unspecified chronicity; Lateral epicondylitis of left elbow Start: 01-05-2021 End: 01-05-2021 Subsequent hospital visit by physician Joe Counts Include [address] [place] Work Phone: Radiology Comment on above: Chronic pain of righ t ankle [M25.571, G89.29] Start: 08-02-2020 End: 08-02-2020 Subsequent hospital visit by physician Joe Counts Include [address] Work Phone: Radiology Comment on above: [...] foot complete minimum 3 views Kari Harvey LEASING ASSISTANT.PELLETIZER TENDER Work Phone: Start: 08-22-2023 Urnls dip stick/tablet rgnt auto w/o microscopy Alejandrina Harvey LEASING ASSISTANT.PELLETIZER TENDER Work Phone: Start: 08-07-2023 ICD CLINIC CHECK [...] study 1/> sites axial skel Alejandrina Harvey LEASING ASSISTANT.PELLETIZER TENDER Work Phone: Start: 12-05-2021 Colonoscopy flx dx w/collj spec when pfrmd Sincere Perkins PA-C Work Phone: Start: 12-05-2021 Esophagogastroduodenoscopy transoral diagnostic Sincere Perkins PA-C Work Phone: Start: 12-05-2021 Colonoscopy Wes Marshall MD Work Phone: Start: 10-27-2021 Ct abdomen & pelvis w/contrast material Alejandrina Harvey APRN.PELLETIZER TENDER Work Phone: Start: 09-01-2021 Radex elbow 2 views Alejandrina Harvey APRN.PELLETIZER TENDER Work Phone: Start: 08-15-2021 End: 08-15-2021 Screening [...] Author Start: 07-08-2027 Diabetes Screening Diabetes Screening [facility] Start: 04-22-2027 Diabetes Screening Diabetes Screening [facility] Start: 01-12-2027 LIPID SCREEN LIPID SCREEN [facility] Start: 12-11-2026 Diabetes Screening Diabetes Screening [facility] Start: 12-05-2026 Colonoscopy COLONOSCOPY [facility] Start: 12-05-2026 COLORECTAL CANCER SCREENING COLORECTAL CANCER SCREENING [facility] Start: 11-17-2026 Diabetes Screening Diabetes Screening [facility] Start: 10-14-2026 Diabetes Screening Diabetes Screening [facility] Start: 09-19-2026 Diabetes Screening Diabetes Screening [facility] Start: 09-14-2026 LIPID SCREEN LIPID SCREEN [facility] Start: 08-21-2026 Diabetes Screening Diabetes Screening [facility] Start: 07-23-2026 Diabetes Screening Diabetes Screening [facility] Start: 07-17-2026 Diabetes Screening Diabetes Screening [facility] Start: 07-10-2026 Diabetes Screening Diabetes Screening [facility] Start: 02-27-2026 Diabetes Screening Diabetes Screening [facility] Start: 12-22-2025 LIPID SCREEN LIPID SCREEN [facility] Start: 12-14-2025 DIABETES SCREEN DIABETES SCREEN [facility] Start: 12-14-2025 Diabetes Screening Diabetes Screening [facility] Start: 10-21-2025 Annual PCP Team Chronic Disease Visit Annual PCP [facility] [facility] Start: 09-30-2025 Annual PCP Team Chronic Disease Visit Annual PCP Team Chronic Disease Visit [facility] Start: 08-25-2025 Annual PCP Team Chronic Disease Visit Annual PCP Team Chronic Disease Visit [facility] Start: 08-04-2025 Annual PCP Team Chronic Disease Visit Annual PCP Team Chronic Disease Visit [facility] Start: 07-21-2025 Annual PCP Team Chronic Disease Visit Annual PCP Team Chronic Disease Visit [facility] Start: 07-21-2025 DIABETES SCREEN DIABETES SCREEN [facility] Start: 07-08-2025 Annual PCP Team Chronic Disease Visit Annual PCP Team Chronic Disease Visit [facility] Start: 07-08-2025 BP Controlled (<130/80) BP Controlled (<130/80) [facility] in Start: 06-20-2025 Annual PCP Team Chronic Disease Visit Annual PCP Team Chronic Disease Visit [facility] Start: 05-30-2025 Annual PCP Team Chronic Disease Visit Annual PCP Team Chronic Disease Visit [facility] Start: 05-22-2025 DIABETES SCREEN DIABETES SCREEN [facility] Start: 05-20-2025 End: 05-20-2025 Patient encounter procedure 05/20/2025 2:00 PM EST Office Visit Cardiology [address] [place] [address] [place] [address] [place], [place] [id number] 6 months follow up Cardiology Comment on above: 6 months follow up Start: 05-12-2025 Annual PCP Team Chronic Disease Visit Annual PCP Team Chronic Disease Visit [facility] Start: 04-22-2025 Annual PCP Team Chronic Disease Visit Annual PCP Team Chronic Disease Visit [facility] Start: 03-09-2025 End: 03-09-2025 Patient encounter procedure 03/09/2025 2:00 PM EDT Office Visit Cardiology [address] [place] [address] Santo Oneill MD [address] [facility] [address] [place], [place] [id number] 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]; Nonischemic cardiomyopathy (HCC) [I42.8] Cardiology Comment on above: 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]; Nonischemic cardiomyopathy (HCC) [I42.8] Start: 02-11-2025 Annual PCP Team Chronic Disease Visit Annual PCP Team Chronic Disease Visit [facility] Start: 01-28-2025 Annual PCP Team Chronic Disease Visit Annual PCP Team Chronic Disease Visit [facility] Start: 01-14-2025 BP Controlled (<130/80) BP Controlled (<130/80) [facility] Start: 01-12-2025 DIABETES SCREEN DIABETES SCREEN [facility] Start: 01-03-2025 Annual PCP Team Chronic Disease Visit Annual PCP Team Chronic Disease Visit [facility] Start: 12-11-2024 Annual PCP Team Chronic Disease Visit Annual PCP Team Chronic Disease Visit [facility] Start: 11-24-2024 End: 11-24-2024 Patient encounter procedure 11/24/2024 2:00 PM EDT Office Visit [facility] [place] [address] [place] [address] Mandeep Houser DO [address] [place] [address] OMT [facility] [place] Comment on above: OMT Start: 11-21-2024 End: 11-21-2024 Patient encounter procedure 11/21/2024 11:20 AM EDT Office Visit Cardiology [address] [place] [address] Álvaro Lobo MD [address] [place] [address] follow up Cardiology Comment on above: follow up Start: 11-13-2024 Incentive spirometry [facility] Start: 11-13-2024 End: 11-13-2024 [facility] Start: 11-06-2024 Annual PCP Team Chronic Disease Visit Annual PCP Team Chronic Disease Visit [facility] Start: 11-04-2024 End: 11-04-2024 Patient encounter procedure Cardiology Comment on above: medtronic annual annual medtronic ck medtronic annual ck 9 months follow up Start: 11-03-2024 End: 11-03-2024 Patient encounter procedure Cardiology Comment on above: annual device check+ DIRECTOR TRADING annual device check+ Hill 9m Start: 10-31-2024 BP Controlled (<130/80) BP Controlled (<130/80) [facility] in Start: 10-30-2024 Annual PCP Team Chronic Disease Visit Annual PCP Team Chronic Disease Visit [facility] Start: 10-30-2024 Anxiety Screening Anxiety Screening [facility] Start: 10-30-2024 Depression Screening Depression Screening [facility] Start: 10-27-2024 DIABETES SCREEN DIABETES SCREEN [facility] Start: 10-21-2024 End: 10-21-2024 Patient encounter procedure 10/21/2024 3:20 PM EDT Office Visit [facility] [address] [place] [address] Mandeep Houser DO [address] [facility] [place] [id number] OMT Family [facility] [place] Comment on above: OMT Start: 10-14-2024 Annual PCP Team Chronic Disease Visit Annual PCP Team Chronic Disease Visit [facility] Start: 10-14-2024 RSV Vaccine (1 - 1-dose 60+ series) RSV Vaccine (1 - 1-dose 60+ series) [facility] Comment on above: Postponed from 2006 (Declined at t his time) Start: 10-14-2024 RSV Vaccine (1 - 1-dose 75+ series) RSV Vaccine (1 - 1-dose 75+ series) [facility] Comment on above: Postponed from 2021 (Declined at t his time) Start: 10-14-2024 Shingrix Vaccine (1 of 2) Shingrix Vaccine (1 of 2) [facility] Comment on above: Postponed from 1996 (Declined at t his time) Start: 10-14-2024 Urine microalbumin profile DTaP,Tdap,Td Vaccine (1 - Tdap) [facility] Comment on above: Postponed from 1965 (Declined at t his time) Start: 10-14-2024 End: 10-14-2024 Patient encounter procedure Cardiology Comment on above: 9 months follow up Start: 09-30-2024 Annual PCP Team Chronic Disease Visit Annual PCP Team Chronic Disease Visit [facility] Start: 09-23-2024 End: 09-23-2024 Patient encounter procedure 09/23/2024 3:40 PM EDT Office Visit Family [facility] [address] [place] [address] Mandeep Houser, [address] [facility] [place] [address] OMT Family [facility] Comment on above: OMT Start: 09-19-2024 Hepatitis B surface antibody level LDL Cholesterol [facility] Start: 09-14-2024 DIABETES SCREEN DIABETES SCREEN [facility] Start: 09-12-2024 Annual PCP Team Chronic Disease Visit Annual PCP Team Chronic Disease Visit [facility] Start: 08-25-2024 End: 08-25-2024 Patient encounter procedure 08/25/2024 3:40 PM EDT Office Visit Family [facility] [address] [place] [address] Mandeep Houser DO [address] [facility] [place] [address] OMT [facility] [place] Comment on above: OMT Start: 08-22-2024 End: 08-22-2024 Patient encounter procedure 08/22/2024 11:20 AM EDT Office Visit Cardiology [address] [address] Álvaro Lobo MD [address] [place] [address] follow up Cardiology Comment on above: follow up Start: 08-21-2024 Annual PCP Team Chronic Disease Visit Annual PCP Team Chronic Disease Visit [facility] Start: 08-20-2024 End: 08-20-2024 Patient encounter procedure 08/20/2024 1:00 PM EDT Office Visit Cardiology [address] [address] Angel Castro DO [address] [place] [address] 6 month follow up Cardiology Comment on above: 6 month follow up Start: 08-15-2024 End: 08-15-2024 Patient encounter procedure 08/15/2024 1:00 PM EDT Office Visit Cardiology [address] [place] [address] Nonischemic cardiomyopathy (HCC) [I42.8] Cardiology Comment on above: Nonischemic cardiomyopathy (HCC) [I42.8] Start: 08-06-2024 BP Controlled (<130/80) BP Controlled (<130/80) [facility] in Start: 08-06-2024 End: 02-06-2025 Echocardiography ECHO Cardiology Routine Nonischemic cardiomyopathy (HCC) Expected: 08/06/2024, Expires: 02/06/2025 [facility] Work Phone: Comment on above: Expected: 08/06/2024, Expires: Start: 08-06-2024 End: 08-06-2024 Patient encounter procedure 08/06/2024 11:20 AM EDT Office Visit Cardiology [address] [address] Nonischemic cardiomyopathy (HCC) [I42.8] Cardiology Comment on above: Nonischemic cardiomyopathy (HCC) [I42.8] Start: 08-04-2024 End: 08-04-2024 Patient encounter procedure 08/04/2024 2:00 PM EDT Office Visit [facility] [place] [address] [place] [address] Mandeep Houser DO [address] [facility] [place] [address] Omt [facility] [place] Comment on above: Omt Start: 07-23-2024 Annual PCP Team Chronic Disease Visit Annual PCP Team Chronic Disease Visit [facility] Start: 07-21-2024 End: 07-21-2024 Patient encounter procedure 07/21/2024 4:00 PM EDT Office Visit Family [facility] [address] [place] [address] Mandeep Houser, [address] [facility] [place] [address] 2 week follow up Family [facility] Comment on above: 2 week follow up Start: 07-08-2024 End: 10-07-2024 25-hydroxyvitamin D3 [Mass/volume] in Serum or Plasma [facility] Comment on above: Expected: 07/08/2024, Expires: Start: 07-08-2024 End: 10-07-2024 Cobalamin (Vitamin B12) [Mass/volume] in Serum or Plasma [facility] Comment on above: Expected: 07/08/2024, Expires: Start: 07-08-2024 End: 10-07-2024 Comprehensive metabolic 2000 panel - Serum or Plasma [facility] Comment on above: Expected: 07/08/2024, Expires: Start: 07-08-2024 End: 10-07-2024 Magnesium [Mass/volume] in Serum or Plasma [facility] Comment on above: Expected: 07/08/2024, Expires: Start: 07-08-2024 End: 10-07-2024 Natriuretic peptide.B prohormone N-Terminal [Mass/volume] in Serum or Plasma [facility] Comment on above: Expected: 07/08/2024, Expires: Start: 07-08-2024 End: 07-08-2024 Patient encounter procedure 07/08/2024 2:00 PM EST Office Visit [facility] [place] [address] [place] [address] Mandeep Houser DO [address] [place] [address] OMT [facility] Comment on above: OMT Start: 07-08-2024 End: 10-07-2024 Thyrotropin [Units/volume] in Serum or Plasma [facility] Comment on above: Expected: 07/08/2024, Expires: Start: 07-08-2024 End: 10-07-2024 Thyroxine (T4) free [Mass/volume] in Serum or Plasma [facility] Comment on above: Expected: 07/08/2024, Expires: Start: 07-08-2024 End: 10-07-2024 Urinalysis complete panel - Urine [facility] Work Phone: Comment on above: Expected: 07/08/2024, Expires: Start: 06-20-2024 End: 06-20-2024 Patient encounter procedure 06/20/2024 2:20 PM EST Office Visit [facility] [place] [address] [place] [address] Mandeep Houser, [address] [place] [address] OMT [facility] [place] Comment on above: OMT Start: 06-12-2024 BP Controlled (<130/80) BP Controlled (<130/80) [facility] Start: 05-30-2024 End: 05-30-2024 Patient encounter procedure 05/30/2024 3:20 PM EST Office Visit [facility] [place] [address] [facility] [place] [facility] [place] [address] Mandeep Houser, [address] [place] [address] OMT [facility] [place] Comment on above: OMT Start: 05-14-2024 Advance Directive Discussion Advance Directive Discussion [facility] Start: 05-12-2024 End: 05-12-2024 Patient encounter procedure 05/12/2024 3:20 PM EST Office Visit [facility] [place] [address] [facility] [place] [address] Mandeep Houser, DO [address] [place] [address] OMT [facility] Comment on above: OMT Start: 04-22-2024 End: 07-22-2024 Bacteria identified in Urine by Culture URINE CULTURE Microbiology Routine Suprapubic pain Expected: 04/22/2024, Expires: 07/22/2024 [facility] Work Phone: Comment on above: Expected: 04/22/2024, Expires: 5 Start: 04-22-2024 End: 07-22-2024 C reactive protein [Mass/volume] in Serum or Plasma [facility] Comment on above: Expected: 04/22/2024, Expires: 5 Start: 04-22-2024 End: 07-22-2024 Comprehensive metabolic 2000 panel - Serum or Plasma [facility] Comment on above: Expected: 04/22/2024, Expires: 5 Start: 04-22-2024 End: 07-22-2024 Lipase [Enzymatic activity/volume] in Serum or Plasma [facility] Comment on above: Expected: 04/22/2024, Expires: Start: 04-22-2024 End: 04-22-2024 Patient encounter procedure 04/22/2024 2:00 PM EST Office Visit [facility] [place] [address] [place] [address] Mandeep Houser, DO [address] [place] [address] OMT [facility] [place] Comment on above: OMT Start: 04-17-2024 Annual PCP Team Chronic Disease Visit Annual PCP Team Chronic Disease Visit [facility] Start: 03-18-2024 End: 03-18-2024 Patient encounter procedure 03/18/2024 2:00 PM EST Office Visit [facility] [place] [address] [place] [address] Mandeep Houser, DO [address] [place] [address] OMT [facility] [place] Comment on above: OMT Start: 02-12-2024 End: 02-12-2024 Patient encounter procedure 02/12/2024 2:00 PM EDT Office Visit [facility] [place] [address] [place] [address] Mandeep Houser, DO [address] [place] [address] OMT [facility] [place] Comment on above: OMT Start: 02-12-2024 End: 05-13-2024 Thyrotropin [Units/volume] in Serum or Plasma [facility] Work Phone: Comment on above: Expected: 02/12/2024, Expires: Start: 02-12-2024 End: 05-13-2024 Thyroxine (T4) free [Mass/volume] in Serum or Plasma [facility] Comment on above: Expected: 02/12/2024, Expires: Start: 02-12-2024 End: 05-13-2024 Triiodothyronine (T3) Free [Mass/volume] in Serum or Plasma [facility] Comment on above: Expected: 02/12/2024, Expires: Start: 02-07-2024 End: 02-07-2024 Patient encounter procedure 02/07/2024 2:20 PM EDT Office Visit Cardiology [address] [address] Angel Castro DO [address] [place] [address] 3 month follow up Cardiology Comment on above: 3 month follow up Start: 02-07-2024 Annual PCP Team Chronic Disease Visit Annual PCP Team Chronic Disease Visit [facility] Start: 02-01-2024 DIABETES SCREEN DIABETES SCREEN [facility] Start: 01-29-2024 End: 04-29-2024 Thyrotropin [Units/volume] in Serum or Plasma THYROID STIMULATING HORMONE Lab Routine Hypothyroidism, acquired Expected: 01/29/2024, Expires: 04/29/2024 [facility] Work Phone: Comment on above: Expected: 01/29/2024, Expires: Start: 01-29-2024 End: 04-29-2024 Thyroxine (T4) free [Mass/volume] in Serum or Plasma T4 FREE/FREE THYROXINE Lab Routine Hypothyroidism, acquired Expected: 01/29/2024, Expires: 04/29/2024 [facility] Comment on above: Expected: 01/29/2024, Expires: Start: 01-29-2024 End: 04-29-2024 Triiodothyronine (T3) Free [Mass/volume] in Serum or Plasma T3, FREE Lab Routine Hypothyroidism, acquired Expected: 01/29/2024, Expires: 04/29/2024 [facility] Comment on above: Expected: 01/29/2024, Expires: Start: 01-29-2024 End: 01-29-2024 Patient encounter procedure 01/29/2024 11:40 AM EDT Office Visit [facility] [place] [address] [facility] [place] [facility] [place] [address] Mandeep Houser DO [address] [place] [address] OMT [facility] [place] Comment on above: OMT Start: 01-15-2024 End: 01-15-2024 Patient encounter procedure 01/15/2024 1:00 PM EDT Office Visit Cardiology [address] [facility] [address] [place] [id number] [place] [address] [place] [address] 5 months follow up in office per Cardiology Comment on above: 5 months follow up in office per Start: 01-10-2024 ANNUAL PCP TEAM CHRONIC DISEASE VISIT ANNUAL PCP TEAM CHRONIC DISEASE VISIT [facility] Start: 01-07-2024 End: 01-07-2024 Patient encounter procedure Cardiology Comment on above: 5 month follow up office appointment per Start: 01-04-2024 End: 01-04-2024 Patient encounter procedure 01/04/2024 4:20 PM EDT Office Visit [facility] [place] [address] [place] [address] Mandeep Houser DO [address] [place] [address] OMT [facility] [place] Comment on above: OMT Start: 12-14-2023 ANNUAL PCP TEAM CHRONIC DISEASE VISIT ANNUAL PCP TEAM CHRONIC DISEASE VISIT [facility] Start: 12-12-2023 End: 12-12-2023 Patient encounter procedure 12/12/2023 3:40 PM EDT Office Visit [facility] [place] [address] [place] [address] Mandeep Houser DO [address] [facility] [place] [address] OMT [facility] [place] Comment on above: OMT Start: 12-05-2023 End: 12-05-2023 Patient encounter procedure 12/05/2023 1:00 PM EDT Appointment Cardiology Lab [address] [place] [address] ECHO Cardiology Lab Comment on above: ECHO Start: 11-27-2023 End: 11-27-2023 Patient encounter procedure 11/27/2023 11:20 AM EDT Office Visit [facility] [place] [address] [place] [address] Mandeep Houser, [address] [place] [address] OMT [facility] [place] Comment on above: OMT Start: 11-14-2023 End: 11-14-2023 Patient encounter procedure 11/14/2023 11:40 AM EDT Office Visit Cardiology [address] [address] Angel Castro, DO [address] [place] [address] 3 month follow up Cardiology Comment on above: 3 month follow up Start: 11-07-2023 End: 11-07-2023 Patient encounter procedure 11/07/2023 1:00 PM EDT Office Visit Cardiology [address] [address] ECHO Cardiology Comment on above: ECHO Start: 11-01-2023 End: 11-01-2023 Patient encounter procedure Cardiology Comment on above: follow up check incision Word finding difficu lty [R47.89]; New onset of headaches after age 50 [R51.9] Start: 10-31-2023 End: 10-31-2023 Patient encounter procedure 10/31/2023 3:00 PM EDT Office Visit [facility] [place] [address] [place] [address] Mandeep Houser, [address] [place] [address] 3 month follow up Family [facility] Comment on above: 3 month follow up Start: 10-31-2023 End: 01-30-2024 25-hydroxyvitamin D3 [Mass/volume] in Serum or Plasma [facility] Work Phone: Comment on above: Expected: 10/31/2023, Expires: 4 Start: 10-31-2023 End: 01-30-2024 C reactive protein [Mass/volume] in Serum or Plasma [facility] Comment on above: Expected: 10/31/2023, Expires: 4 Start: 10-31-2023 End: 01-30-2024 Iron and Iron binding capacity panel - Serum or Plasma [facility] Comment on above: Expected: 10/31/2023, Expires: 4 Start: 10-31-2023 End: 01-30-2024 Magnesium [Mass/volume] in Serum or Plasma [facility] Comment on above: Expected: 10/31/2023, Expires: Start: 10-31-2023 End: 01-30-2024 Thyrotropin [Units/volume] in Serum or Plasma [facility] Comment on above: Expected: 10/31/2023, Expires: Start: 10-31-2023 End: 01-30-2024 Thyroxine (T4) free [Mass/volume] in Serum or Plasma [facility] Comment on above: Expected: 10/31/2023, Expires: Start: 10-31-2023 End: 01-30-2024 Triiodothyronine (T3) Free [Mass/volume] in Serum or Plasma [facility] Comment on above: Expected: 10/31/2023, Expires: 4 Start: 10-15-2023 BP CONTROLLED (<130/80) BP CONTROLLED (<130/80) [facility] Start: 10-15-2023 End: 01-14-2024 Comprehensive metabolic 2000 panel - Serum or Plasma [facility] Work Phone: Comment on above: Expected: 10/15/2023, Expires: 4 Start: 10-15-2023 End: 01-14-2024 Urate [Mass/volume] in Serum or Plasma [facility] Comment on above: Expected: 10/15/2023, Expires: 4 Start: 10-11-2023 ANNUAL PCP TEAM CHRONIC DISEASE VISIT ANNUAL PCP TEAM CHRONIC DISEASE VISIT [facility] Start: 10-02-2023 End: 10-02-2023 ambulatory Cardiology Comment on above: Phone visit 6-[address] Wells please call [phone] Start: 09-24-2023 End: 09-24-2023 Patient encounter procedure 09/24/2023 10:15 AM EDT Office Visit Podiatry [address] [place], [place] [id number] Oliverio Mata [address] [place], [place] [id number] left foot pain swollen Podiatry Comment on above: left foot pain swollen Start: 09-19-2023 End: 12-19-2023 Basic metabolic 2000 panel - Serum or Plasma BASIC METABOLIC PANEL Lab Routine Nonischemic cardiomyopathy (HCC) Chronic systolic congestive heart failure (HCC) Expected: 09/19/2023 (Approximate), Expires: 12/19/2023 [facility] Work Phone: Comment on above: Expected: 09/19/2023 (Approximate), Expi res: 12/19/2023 Start: 09-05-2023 End: 12-05-2023 Lipid 1996 panel - Serum or Plasma LIPID PANEL BASIC Lab Routine Mixed hyperlipidemia Expected: 09/05/2023, Expires: 12/05/2023 [facility] Comment on above: Expected: 09/05/2023, Expires: Start: 08-23-2023 ANNUAL PCP TEAM CHRONIC DISEASE VISIT ANNUAL PCP TEAM CHRONIC DISEASE VISIT [facility] Start: 08-15-2023 BP CONTROLLED (<130/80) BP CONTROLLED (<130/80) [facility] Start: 08-03-2023 ANNUAL PCP TEAM CHRONIC DISEASE VISIT ANNUAL PCP TEAM CHRONIC DISEASE VISIT [facility] Start: 07-24-2023 End: 10-23-2023 25-hydroxyvitamin D3 [Mass/volume] in Serum or Plasma [facility] Work Phone: Comment on above: Expected: 07/24/2023, Expires: Start: 07-22-2023 ANNUAL PCP TEAM CHRONIC DISEASE VISIT ANNUAL PCP TEAM CHRONIC DISEASE VISIT [facility] Start: 07-22-2023 Hepatitis B surface antibody level LDL CHOLESTEROL [facility] Start: 07-22-2023 HEPATITIS C SCREENING HEPATITIS C SCREENING [facility] Comment on above: Postponed from 1964 (Declined at t his time) Start: 07-22-2023 Hepatitis C screening Hepatitis C Screening [facility] Comment on above: Postponed from 1964 (Declined at t his time) Start: 07-22-2023 Urine microalbumin profile [facility] Comment on above: Postponed from 1965 (Declined at t his time) Start: 07-19-2023 ANNUAL PCP TEAM CHRONIC DISEASE VISIT ANNUAL PCP TEAM CHRONIC DISEASE VISIT [facility] Start: 05-14-2023 Advance Directive Discussion Advance Directive Discussion [facility] Start: 05-14-2023 Behavioral Health Screening Behavioral Health Screening [facility] Start: 05-14-2023 Depression Assessment Depression Assessment [facility] Start: 05-13-2023 ADVANCE DIRECTIVE DISCUSSION ADVANCE DIRECTIVE DISCUSSION [facility] Comment on above: Postponed from 05/14/2022 (Declined at t his time) Start: 05-03-2023 ANNUAL PCP TEAM CHRONIC DISEASE VISIT ANNUAL PCP TEAM CHRONIC DISEASE VISIT [facility] Start: 03-10-2023 ANNUAL PCP TEAM CHRONIC DISEASE VISIT ANNUAL PCP TEAM CHRONIC DISEASE VISIT [facility] Start: 03-10-2023 BP CONTROLLED (<130/80) BP CONTROLLED (<130/80) [facility] Start: 02-09-2023 End: 04-11-2023 CBC W Auto Differential panel - Blood CBC + DIFF Lab Routine Hypothyroidism, unspecified type Expected: 02/09/2023, Expires: 04/11/2023 [facility] Work Phone: Comment on above: Expected: 02/09/2023, Expires: 3 Start: 02-09-2023 End: 04-11-2023 Comprehensive metabolic 2000 panel - Serum or Plasma COMP METABOLIC PANEL Lab Routine Hypothyroidism, unspecified type Expected: 02/09/2023, Expires: 04/11/2023 [facility] Work Phone: Comment on above: Expected: 02/09/2023, Expires: 3 Start: 02-09-2023 End: 04-11-2023 Thyrotropin [Units/volume] in Serum or Plasma TSH BLD Lab Routine Hypothyroidism, unspecified type Expected: 02/09/2023, Expires: 04/11/2023 [facility] Work Phone: Comment on above: Expected: 02/09/2023, Expires: 3 Start: 02-09-2023 End: 04-11-2023 Thyroxine (T4) free [Mass/volume] in Serum or Plasma T4 FREE/FREE THYROX Lab Routine Hypothyroidism, unspecified type Expected: 02/09/2023, Expires: 04/11/2023 [facility] Work Phone: Comment on above: Expected: 02/09/2023, Expires: 3 Start: 02-09-2023 End: 04-11-2023 Triiodothyronine (T3) Free [Mass/volume] in Serum or Plasma T3 FREE BLD Lab Routine Hypothyroidism, unspecified type Expected: 02/09/2023, Expires: 04/11/2023 [facility] Work Phone: Comment on above: Expected: 02/09/2023, Expires: 3 Start: 01-20-2023 ANNUAL PCP TEAM CHRONIC DISEASE VISIT ANNUAL PCP TEAM CHRONIC DISEASE VISIT [facility] Start: 01-20-2023 BP CONTROLLED (<130/80) BP CONTROLLED (<130/80) [facility] Start: 01-12-2023 Hepatitis B surface antibody level LDL CHOLESTEROL [facility] Start: 12-19-2022 BP CONTROLLED (<130/80) BP CONTROLLED (<130/80) [facility] Start: 11-02-2022 BP CONTROLLED (<130/80) BP CONTROLLED (<130/80) [facility] Start: 10-19-2022 ANNUAL PCP TEAM CHRONIC DISEASE VISIT ANNUAL PCP TEAM CHRONIC DISEASE VISIT [facility] Start: 10-14-2022 End: 10-28-2022 Influenza virus A and B RNA and SARS-CoV-2 (COVID-19) N gene panel - Respiratory specimen by PRECIOUS with probe detection COVID WITH FLUA+B, ROUTINE Microbiology Routine Sore throat Acute cough Expected: 10/14/2022, Expires: 10/28/2022 [facility] Work Phone: Comment on above: Expected: 10/14/2022, Expires: 3 Start: 09-21-2022 ANNUAL PCP TEAM CHRONIC DISEASE VISIT ANNUAL PCP TEAM CHRONIC DISEASE VISIT [facility] Start: 09-14-2022 Hepatitis B surface antibody level LDL CHOLESTEROL [facility] Start: 09-01-2022 ANNUAL PCP TEAM CHRONIC DISEASE VISIT ANNUAL PCP TEAM CHRONIC DISEASE VISIT [facility] Start: 08-15-2022 Mammography MAMMOGRAM [facility] Start: 07-01-2022 ANNUAL PCP TEAM CHRONIC DISEASE VISIT ANNUAL PCP TEAM CHRONIC DISEASE VISIT [facility] Start: 05-14-2022 ADVANCE DIRECTIVE DISCUSSION ADVANCE DIRECTIVE DISCUSSION [facility] Start: 05-14-2022 DEPRESSION ASSESSMENT DEPRESSION ASSESSMENT [facility] Start: 02-20-2022 End: 02-13-2023 Echocardiography ECHO Cardiology Routine Cardiomegaly Expected: 02/20/2022, Expires: 02/13/2023 [facility] Work Phone: Comment on above: Expected: 02/20/2022, Expires: 3 Start: 12-29-2021 PNEUMOCOCCAL: 65+ (2 - PCV) PNEUMOCOCCAL: 65+ (2 - PCV) [facility] Start: 12-22-2021 Hepatitis B surface antibody level LDL CHOLESTEROL [facility] Start: 12-09-2021 Adult depression screening assessment DEPRESSION SCREENING [facility] Start: 11-29-2021 End: 01-29-2022 Basic metabolic 2000 panel - Serum or Plasma BASIC METABOLIC PNL Lab Routine Chronic systolic CHF (congestive heart failure) (HCC) Expected: 11/29/2021, Expires: 01/29/2022 [facility] Work Phone: Comment on above: Expected: 11/29/2021, Expires: 2 Start: 11-29-2021 End: 01-29-2022 CBC panel - Blood by Automated count CBC Lab Routine Chronic systolic CHF (congestive heart failure) (HCC) Expected: 11/29/2021, Expires: 01/29/2022 [facility] Work Phone: Comment on above: Expected: 11/29/2021, Expires: 2 Start: 10-20-2021 End: 12-20-2021 T3 BLD T3 BLD Lab Routine Hypothyroidism, unspecified type Expected: 10/20/2021, Expires: 12/20/2021 [facility] Work Phone: Comment on above: Expected: 10/20/2021, Expires: 2 Start: 10-20-2021 End: 12-20-2021 T4 FREE/FREE THYROX T4 FREE/FREE THYROX Lab Routine Hypothyroidism, unspecified type Expected: 10/20/2021, Expires: 12/20/2021 [facility] Work Phone: Comment on above: Expected: 10/20/2021, Expires: 2 Start: 10-20-2021 End: 12-20-2021 Thyrotropin [Units/volume] in Serum or Plasma TSH BLD Lab Routine Hypothyroidism, unspecified type Expected: 10/20/2021, Expires: 12/20/2021 [facility] Work Phone: Comment on above: Expected: 10/20/2021, Expires: 2 Start: 09-01-2021 End: 11-01-2021 CBC W Auto Differential panel - Blood CBC + DIFF Lab Routine Primary hypertension Expected: 09/01/2021, Expires: 11/01/2021 [facility] Work Phone: Comment on above: Expected: 09/01/2021, Expires: 2 Start: 09-01-2021 End: 11-01-2021 Comprehensive metabolic 2000 panel - Serum or Plasma COMP METABOLIC PANEL Lab Routine Primary hypertension Hypokalemia Expected: 09/01/2021, Expires: 11/01/2021 [facility] Work Phone: Comment on above: Expected: 09/01/2021, Expires: 2 Start: 09-01-2021 End: 11-01-2021 Hemoglobin A1c/Hemoglobin.total in Blood HGB A1C Lab Routine Screening for diabetes mellitus Abnormal finding of blood chemistry, unspecified Expected: 09/01/2021, Expires: 11/01/2021 [facility] Work Phone: Comment on above: Expected: 09/01/2021, Expires: 2 Start: 09-01-2021 End: 11-01-2021 LIPID PANEL BASIC LIPID PANEL BASIC Lab Routine Mixed hyperlipidemia Expected: 09/01/2021, Expires: 11/01/2021 [facility] Work Phone: Comment on above: Expected: 09/01/2021, Expires: 2 Start: 09-01-2021 End: 11-01-2021 Thyrotropin [Units/volume] in Serum or Plasma TSH BLD Lab Routine Screening for thyroid disorder Expected: 09/01/2021, Expires: 11/01/2021 [facility] Work Phone: Comment on above: Expected: 09/01/2021, Expires: 2 Start: 09-01-2021 End: 11-01-2021 VITAMIN D 25 HYDROXY VITAMIN D 25 HYDROXY Lab Routine Encounter for vitamin deficiency screening Body mass index (BMI) 34.0-34.9, adult Expected: 09/01/2021, Expires: 11/01/2021 [facility] Work Phone: Comment on above: Expected: 09/01/2021, Expires: 2 Start: 08-09-2021 Mammography MAMMOGRAM [facility] Start: 2021 RSV Vaccine (1 - 1-dose 75+ series) RSV Vaccine (1 - 1-dose 75+ series) [facility] Start: 05-14-2021 ADVANCE DIRECTIVE DISCUSSION ADVANCE DIRECTIVE DISCUSSION [facility] Start: 05-14-2021 DEPRESSION ASSESSMENT DEPRESSION ASSESSMENT [facility] Start: 12-19-2019 Colonoscopy COLONOSCOPY [facility] Start: 12-19-2019 COLORECTAL CANCER SCREENING COLORECTAL CANCER SCREENING [facility] Start: 07-17-2011 BONE DENSITY BONE DENSITY [facility] Start: 07-13-2011 Medicare Annual Wellness Visit Medicare Annual Wellness Visit [facility] Start: 2006 RSV Vaccine (1 - 1-dose 60+ series) RSV Vaccine (1 - 1-dose 60+ series) [facility] Start: 1996 SHINGRIX VACCINE (1 of 2) SHINGRIX VACCINE (1 of 2) [facility] Start: 07-17-1991 COLOGUARD (FIT-DNA) COLOGUARD (FIT-DNA) [facility] Start: 07-17-[address] COLONOGRAPHY [facility] Start: 07-17-1991 FECAL OCCULT BLOOD FECAL OCCULT BLOOD [facility] Start: 07-17-1991 SIGMOIDOSCOPY SIGMOIDOSCOPY [facility] Start: 1965 Urine microalbumin profile [facility] Start: 1964 BP CONTROLLED (<130/80) BP CONTROLLED (<130/80) [facility] Start: 1964 HEPATITIS C SCREENING HEPATITIS C SCREENING [facility] Start: 1964 Hepatitis C screening Hepatitis C Screening [facility] End: 11-18-2022 Ct abdomen & pelvis w/contrast material CT ABD/PEL W IVCON Radiology Routine Diverticulitis RLQ abdominal pain Lower abdominal pain 1 Occurrences starting 10/19/2021 until 11/18/2022 [facility] Work Phone: Comment on above: 1 Occurrences starting 10/19/2021 until 11/18/2022 End: 09-21-2023 Ct abdomen & pelvis w/contrast material CT ABD/PEL W IVCON Radiology STAT Abdominal distension (gaseous) Nausea RUQ abdominal pain 1 Occurrences starting 08/22/2022 until 09/21/2023 [facility] Work Phone: Comment on above: 1 Occurrences starting 08/22/2022 until 09/21/2023 End: 11-29-2024 CT Head WO contrast CT BRAIN WO IVCON Radiology STAT Word finding difficulty New onset of headaches after age 50 1 Occurrences starting 10/31/2023 until 11/29/2024 [facility] Comment on above: 1 Occurrences starting 10/31/2023 until 11/29/2024 End: 08-20-2023 DXA-AXIAL SKELETON DXA-AXIAL SKELETON Radiology Routine Screening for osteoporosis Asymptomatic menopause 1 Occurrences starting 07/21/2022 until 08/20/2023 [facility] Work Phone: Comment on above: 1 Occurrences starting 07/21/2022 until 08/20/2023 End: 08-04-2023 ECG COMPLETE ECG COMPLETE ECG Routine Primary hypertension Palpitations Mixed hyperlipidemia 1 Occurrences starting 08/03/2022 until 08/04/2023 [facility] Work Phone: Comment on above: 1 Occurrences starting 08/03/2022 until 08/04/2023 ECG COMPLETE [facility] Work Phone: Comment on above: Ordered: 04/09/2023 ECG COMPLETE ECG COMPLETE ECG Routine LBBB (left bundle branch block) Presence of cardiac resynchronization therapy defibrillator (RN RENAL-D) Acute on chronic systolic CHF (congestive heart failure) (HCC) Ordered: 08/07/2023 [facility] Work Phone: Comment on above: Ordered: 08/07/2023 ECG COMPLETE ECG COMPLETE ECG Routine Presence of cardiac resynchronization therapy defibrillator (RN RENAL-D) Non-ischemic cardiomyopathy (HCC) LBBB (left bundle branch block) Ordered: 11/01/2023 [facility] Work Phone: Comment on above: Ordered: 11/01/2023 ECG COMPLETE ECG COMPLETE ECG Routine Cardiac resynchronization therapy defibrillator (RN RENAL-D) in place Ordered: 11/03/2024 [facility] Work Phone: Comment on above: Ordered: 11/03/2024 OUTSIDE VENDOR CARDI AC OUTPATIENT EXTENDED RHYTHM RECORDING (WITHOUT TELEMETRY) OUTSIDE VENDOR CARDIAC OUTPATIENT EXTENDED RHYTHM RECORDING (WITHOUT TELEMETRY) Holter Routine Primary hypertension Palpitations Ordered: 08/14/2022 [facility] Work Phone: Comment on above: Ordered: 08/14/2022 OUTSIDE VENDOR CARDI AC OUTPATIENT EXTENDED RHYTHM RECORDING (WITHOUT TELEMETRY) OUTSIDE VENDOR CARDIAC OUTPATIENT EXTENDED RHYTHM RECORDING (WITHOUT TELEMETRY) Holter Routine Cardiac resynchronization therapy defibrillator (RN RENAL-D) in place Ordered: 11/03/2024 [facility] Comment on above: Ordered: 11/03/2024 Patient Education ED Chest Wall Contusion [facility] Work Phone: SURGICAL PATHOLOGY [facility] Work Phone: Comment on above: Release Upon Ordering for 1 Occurrences starting 12/05/2021, 1 completed UA DIP, URINE (POC) UA DIP, URIN E (POC) Lab Routine Vagina, candidiasis Burning with urination Ordered: 08/22/2023 [facility] Work Phone: Comment on above: Ordered: 08/22/2023 End: 08-07-2025 XR Chest PA and Lateral XR CHEST 2V FRONTAL/LAT Radiology Routine Acute cough 1 Occurrences starting 07/08/2024 until 08/07/2025 [facility] Comment on above: 1 Occurrences starting 07/08/2024 until 08/07/2025 XR Chest PA and Lateral XR CHEST 2V FRONTAL/LAT Radiology Routine Acute cough 07/08/2024 3:31 PM EST [facility] End: 10-23-2024 XR Foot - left AP and Lateral and oblique XR FOOT GENERAL 3V AP/LAT/OBL LEFT Radiology Routine Repetitive stress injury 1 Occurrences starting 09/24/2023 until 10/23/2024 [facility] Work Phone: Comment on above: 1 Occurrences starting 09/24/2023 until 10/23/2024 XR Foot - left AP an d Lateral and oblique XR FOOT GENERAL 3V AP/LAT/OBL LEFT Radiology Routine Repetitive stress injury 09/24/2023 11:15 AM EDT [facility] End: 12-06-2024 XR Lumbar spine 3 Views XR LUMBAR GENERAL 3V AP/LAT/L5-S1 Radiology Routine Acute midline low back pain without sciatica 1 Occurrences starting 11/07/2023 until 12/06/2024 [facility] Work Phone: Comment on above: 1 Occurrences starting 11/07/2023 until 12/06/2024 [facility] Immunizations Immunization Date Immunization Notes Care Provider Fa gideon 07-21-2022 pneumococcal (PCV20) vaccine, 20 valent (PREVNAR 20) Alejandrina Yasir LEASING ASSISTANT.PELLETIZER TENDER Work Phone: [facility] 07-21-2022 pneumococcal Conjuga te, unspecified formulation Alejandrina Yasir LEASING ASSISTANT.PELLETIZER TENDER Work Phone: [facility] Work Phone: 12-29-2020 pneumococcal polysaccharide vaccine, 23 valent Estelita Maradiaga PT Work Phone: [facility] Work Phone: Payers Date Payer Category Payer Self-pay 2013 Private Health Insurance [facility] AARP SUPPLEMENT [id number] 2013-Present [phone] [address] [place] [address] Indemnity [id number] 2013 Private Health Insurance [id number] 2013 Unknown [id number] 2011 Medicare MEDICARE MEDICAR E A AND B [id number] 2011-Present [phone] [address] [address] [place] [address] Medicare [id number] 2011 Medicare [id number] 2011 Medicare [id number] Medicare [id number] Unknown NOLANARE/AKRO [id number] Unknown [id number] Unknown [id number] Unknown [id number] Unknown [id number] Unknown [id number] Unknown [id number] Unknown [id number] Social History Date Type Detail Facility Start: 09-03-2020 End: 11-13-2024 Tobacco smoking status NHIS Ex-smoker [facility] End: 10-22-2002 History of tobacco use Current smoker [facility] End: 10-22-2002 History of tobacco use Cigarette Smoker [facility] Start: 07-01-2021 End: 11-03-2024 Alcohol intake Current non-drinker of alcohol (finding) [facility] Start: 1945 Sex Assigned At Not on file [facility] Start: 03-21-2020 End: 03-10-2022 Exposure to SARS-CoV-2 (event) Not sure [facility] Start: 09-03-2020 End: 01-15-2024 Tobacco use and exposure Smokeless tobacco non-user [facility] Start: 09-27-2022 End: 10-14-2022 History of Social function [facility] Work Phone: Start: 09-27-2022 End: 10-14-2022 Tobacco use panel [facility] Work Phone: Adult Depression Screening Assessment 0 [facility] Work Phone: Has the [employer], [employer], or water [employer] threatened to shut off services in your home in past 12Mo No [facility] How hard is it for y ou to pay for the very basics like food, housing, medical care, and heating Not very hard [facility] (I/We) worried paulo er (my/our) food would run out before (I/we) got money to buy more. Never true [facility] Start: 08-29-2023 [facility] Start: 1945 Sex Assigned At Female W [facility] NEGATED: Highlighted row - - [facility] Work Phone: Medical Equipment Procedure Code Equipment Code Equipment Original Text Equipment Identifier Dates Sling Dennis Polypropylene 60x1.1cm Suburethral Transobturator Tape - [id number] Start: 05-24-2020 [id number] Baltazar lt Xt Hf Quad Delivery And Mail Sorter-D [id number] Start: 2023 [id number] Caps urefix Novus [id number] Start: 2023 [id number] Narinder in Stability Quad Mri Surescan [id number] Start: 2023 [id number] [id number] Spr int Quattro Secure S [id number] Start: 2023 Goals Date Patient Goal Desired Activity /State Personal health goal Functional Status Date Assessment Result Facility 11-18-2023 Are you deaf, or do you have serious difficulty hearing No 11/18/2023 1:06 PM Lena Holloway, CARO No [facility] 11-18-2023 Are you blind, or do you have serious difficulty seeing, even when wearing glasses No 11/18/2023 1:06 PM Lena Holloway, CARO No [facility] 11-18-2023 Do you have serious difficulty walking or climbing stairs No 11/18/2023 1:06 PM Lena Holloway, CARO No [facility] 11-18-2023 Do you have difficul ty dressing or bathing No 11/18/2023 1:06 PM Lena Holloway, CARO No [facility] 11-18-2023 Because of a physica l, mental, or emotional condition, do you have difficulty doing errands alone such as visiting a physician's office or shopping No 11/18/2023 1:06 PM EDT Lena Lennon RN No [facility] NEGATED: Highlighted row Functional performance Functional status health issues are not documented Disease [facility] [employer] Work Phone: Mental Status Date Assessment Result Facility 11-18-2023 Because of a physical, mental, or emotional condition, do you have serious difficulty concentrating, remembering, or making decisions No 11/18/2023 1:06 PM EDT Lena Lennon RN No [facility] NEGATED: Highlighted row Cognitive function [Interpretation] Cognitive status health issues are not documented Disease [facility] [employer] Work Phone: Clinical Notes 04-27-2020 to 11-13-2024 Note Date & Type Note Facility 11-13-2024 Discharge summary [facility] 11-13-2024 Radiology Diagnostic study note [facility] Imaging Services [address] [place] [address] [id number] Chest without Contrast MR#: [id number] Acct: [id number] Name: SANDRA SCHMITZ Rep #: [id number] : 1945 F 79 From: Julianna Lanza MD PCP: Dr. Mandeep Houser, DO Status: RE G ER Study:Chest without Contrast Date of Exam: 11/13/24 Exam# [id number] Ordering Dr: Mykel Goldberg MD PROCEDURE: CHEST [...] acute finding on noncontrast examination. Reading Location: [id number] CC: Dr. Jose Goldberg MD; Dr. Mandeep Houser DO ~ Tricot Knitter: Signed [facility] 11-13-2024 Radiology Diagnostic study note [facility] Imaging Services [address] [place] [address] [id number] Brain/Head without Contrast MR#: [id number] Acct: [id number] Name: SANDRA SCHMITZ Rep #: [id number] : 1945 F 79 From: Julianna Lanza MD PCP: Dr. Mandeep Houser DO Status: RE G ER Study:Brain/Head without Contrast Date of Exa m: 11/13/24 Exam# [id number] Ordering Dr: Mykel Goldberg MD EXAM: BRAIN/HEAD [...] IMPRESSION: No acute intracranial finding. Reading Location: [facility] CC: Dr. Jose Goldberg MD; Dr. Mandeep Houser DO ~ [employer]ricot Knitter: Signed [facility] 11-13-2024 Radiology Diagnostic study note [facility] Imaging Services [address] [place] [address] Hand Min 3 Views MR#: [id number] Acct: [id number] Name: NADIRSANDRA Rep #: [id number] : 1945 F 79 From: Julianna Lanza MD PCP: Dr. Mandeep Houser DO Status: RE G ER Study:Hand Min 3 Views Date of Exam: 08/05 Exam# [id number] Ordering Dr: Mykel Goldberg MD PROCEDURE: HAND MIN 3 VIEWS 11/13/2024 REASON FOR EXAM: PAIN/INJURY TECHNIQUE: HAND MIN 3 VIEWS, right COMPARISON: None. FINDINGS: Bones: No acute fracture. No aggressive osseous lesions. Joints: Normal alignment. Moderate degenerative changes. Soft tissues: Soft tissues are unremarkable. RAD/Hand Min 3 Views IMPRESSION: DEGENERATIVE OSTEOARTHROSIS. NO ACUTE FINDINGS. Reading Location: [facility] CC: Dr. Jose Goldberg MD; Dr. Mandeep Houser DO ~ Tricot Knitter: Signed [facility] 11-13-2024 Radiology Diagnostic study note [facility] Imaging Services [address] [place], [place] [id number] Chest 1 View (Portable) MR#: [id number] Acct: [id number] Name: SANDRA SCHMITZ Rep #: [id number] : 1945 F 79 From: Julianna Lanza MD PCP: Dr. Mandeep Houser DO Status: RE G ER Study:Chest 1 View (Portable) Date of Exam: 11/13/24 Exam# [id number] Ordering Dr: Mykel Goldberg MD PROCEDURE: CHEST 1 VIEW (PORTABLE) 11/13/2024 REASON FOR EXAM: FALL/INJURY CHEST TECHNIQUE: Frontal view of the chest. COMPARISON: Chest radiograph 03/27/2024. FINDINGS: Hardware: Left chest wall pacemaker in place. Heart: Stable mild cardiomegaly. Lungs: Low lung volumes, [id number]-abcy-right. Visualization of the left lung is limited due to overlying pacemaker. No large consolidation, pleural effusion or pneumothorax. Bones: Degenerative changes are identified within the thoracic spine. RAD/Chest 1 View (Portable) IMPRESSION: Cardiomegaly. No acute findings. Reading Location: [facility] CC: Dr. Jose Goldberg MD; Dr. Mandeep Houser DO ~ Tricot Knitter: Signed [facility] 11-13-2024 Discharge summary Note Date/Time November 13, 2024 10:33pm [facility] Medical Records Department [address] [place] [id number] Emergency Department Summary 11/13/24 MR#: [id number] Acct: [id number] Name: SANDRA SCHMITZ Rep #:[id number] : 1945 79 From: Jose Goldberg MD [...] but takes a baby aspirin daily. [facility] Medical History Obesity Former tobacco use Hyperlipidemia [...] % (Auto) Cancelled Lymph % (Auto) Cancelled [place] % (Auto) Cancelled Eos % (Auto) Cancelled [...] Drop Cells Cancelled Ovalocytes Cancelled Stomatocytes Cancelled [place] Bodies Cancelled Rocky Cells Cancelled Bite Cells [...] Clarity Clear Urine pH 6.5 Ur Specific [place] 1.010 Urine Protein 15 H Urine Glucose [...] % (Auto) 61.4 Lymph % (Auto) 26.8 [place] % (Auto) 8.8 Eos % (Auto) 1.3 [...] Target Cells Tear Drop Cells Ovalocytes Stomatocytes [place] Bodies Rocky Cells Bite Cells Crenated Cell Acanthocytes (Spur) Rouleaux Schistocytes Sodium Potassium Chloride Carbon Dioxide Anion Gap BUN Creatinine Estim Creat Clear Calc Est GFR (MDRD) Non-Af BUN/Creatinine Ratio Glucose Calcium Urine Color Urine Clarity Urine pH Ur Specific [place] Urine Protein Urine Glucose (UA) Urine Ketones Urine Occult Blood Urine Nitrite Urine Bilirubin Urine Urobilinogen Ur Leukocyte Esterase Urine RBC Urine WBC Ur Squamous Epith Cells Urine Bacteria Urine Mucus Radiography Diagnostic Testing: Clinical Impression(s) from Imaging Studies Chest X-Ray 11/13/24 18:45 IMPRESSION: Cardiomegaly. No acute findings. Reading Location: [facility] Hand X-Ray 11/13/24 18:46 IMPRESSION: DEGENERATIVE OSTEOARTHROSIS. NO ACUTE FINDINGS. Reading Location: [facility] Brain CT 11/13/24 19:57 IMPRESSION: No acute intracranial finding. Reading Location: [facility] Chest CT 11/13/24 19:57 IMPRESSION: Visualization is limited by motion artifact and streak artifact from left chest wall pacemaker. No acute finding on noncontrast examination. Reading Location: [facility] Rhythm Strip Rhythm Strip: Sinus Rhythm [...] is an option for this. Print Language: Albanian Disposition Disposition: Home, Self Care What to do if you have Problems For any increased pain, shortness of breath, bleeding, nausea or vomiting, chestpain, or any unexpected problems, contact your Primary Care Provider. Call [facility] ([phone]) or report to the closest Emergency Room. Call 911 if necessary. 11/13/242232 <Electronically signed by Jose Goldberg MD> Cosigner Signature (if applicable): CC: Dr. Mandeep Houser DO ~ Signed [facility] Work Phone: 1(797) 859-538106-25-2025 NoteHNO ID: [id number] Author: CHASIDY LYN MA Service: ? Author Type: [employer] Machine Operator Type: Progress Notes Filed: 11/05/2024 14:20 Note [...] Chasidy Lyn MA November 05, 2024 2:18 [facility] History of Present illness Narrative* Chasidy Lyn [...] 05, 2024 2:18 PM documented in this encounterOhiohealth Southeastern Medical Center06-25-2025 NotePatient Outreach (NETNAV) SANDRA SCHMITZ ([id number]) 1945 F Date Time Provider Department 11/05/24 [...] Health Navigation Outreach [[id number]] [facility] Pres[facility] as of 11/05/2024 - metoprolol succinate [...] right [M19.071] 08/02/2022 Coronary artery disease involving paimiut lopez*08/02/2022 Vitamin D deficiency [E55.9] 08/02/2022 Somatic dysfunction of head region [M99.00] 08/10/2022 Chronic neck pain [M54.2, G89.29] 08/24/2022 Chronic bronchitis (HCC) [J42] 09/11/2022 SVT (suprave (more content not included)...[facility]06-23-2025 NoteHNO ID: [id number] Author: DILCIA HOOKS MA Service: ? Author Type: [employer] Machine Operator Type: Progress Notes Filed: 11/03/2024 15:58 Note Text: EVENT MONITOR DISPOSABLE PATCH INSTRUCTIONS Patient Name: Sandra Schmitz [facility] Number: [id number] Skin prepped and cleansed with alcohol Patch secured to prepped area Monitor Activated Serial #: [id number] Patient Instructed: Prescribed order timeframe Bathing guidelines Usage of event button and diary documentation Return of monitor at the end of prescribed order Call with problems [phone] or [phone]. [phone] Patient expresses a good understanding of instructions Dilcia Hooks [facility]06-23-2025 History of Present illness Narrative* Dilcia Hooks MA - 11/03/2024 3:57 PM EDT EVENT MONITOR DISPOSABLE PATCH INSTRUCTIONS Patient Name: Sandra Schmitz [facility] Number: [id number] Skin prepped and cleansed with alcohol Patch secured to prepped area Monitor Activated Serial #: [id number] Patient Instructed: Prescribed order timeframe Bathing guidelines Usage of event button and diary documentation Return of monitor at the end of prescribed order Call with problems [phone] or [phone]. [phone] Patient expresses a good understanding of instructions Dilcia Hooks MA documented in this encounterOhiohealth Southeastern Medical Center06-23-2025 History of Present illness Narrative* HillMorenita youMELI.PELLETIZER TENDER - 11/03/2024 3:30 PM EDT Images from the original note were not included. [facility] [place] Eduardo Department of Cardiovascular Medicine SECTION OF ELECTROPHYSIOLOGY AND PACING OUTPATIENT VISIT DATE November 03, 2024 OUTPATIENT VISIT TYPE ESTABLISHED PRIMARY CARE PHYSICIAN: Mandeep Houser [address] [place] [address] CHIEF COMPLAINT: Follow Up HISTORY OF PRESENT ILLNESS: Ms. Schmitz is a 79 year old female, patient of Dr. Wellington and Dr. Wells who presents today for a cardiovascular medicine follow-up visit regarding RN RENAL-D which was placed in July of last year during which time she had been admitted to [facility] for acute HFrEF and inability to initiate GDMT. She was deemed excellent candidate for RN RENAL therapy and thus had MDT RN RENAL-D inserted. Since then, Ms. Schmitz reports that overall she has been feeling well. She has noted over the last several months that when shh is anxious or rushing, she may feel her heart racing with some palpitations. When she rests, symptoms resolve. Overall, since device insertion, she has significantly improved functional capacity. She is compliant with all medications. PMH: Chronic NICM s/p MDT RN RENAL-D, dyslipidemia, hypothyroidism, Factor V Leiden, IBS, h/o gout PAST MEDICAL HISTORY Diagnosis Date Acute acalculous cholecystitis 05/30/2020 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 09/22/2020 Acute on chronic systolic CHF (congestive heart failure) ([facility]) 05/03/2020 Aspiration pneumonia ([facility]) 05/30/2020 Chest pain 05/03/2020 Chest pressure 01/23/2013 [...] Testing. IMPRESSION/PLAN: Chronic Non-ischemic cardiomyopathy s/p MDT RN RENAL-D (07/2023) ECG today demonstrates atrial sensed, ventricular [...] SGL2i: N/A due to intolerance Device: MDT RN RENAL-D (BiV pacing 87.1%) Will contact patient with results and plan. Will arrange for 6 month follow up with DR. Wellington withdevice check prior. If BiVP is optimized, then can extend to annual follow up. CONTACT INFORMATION: Morenita Hill APRN.TIM Cardiology [address] [facility] [address] [facility] [address] Dept: [phone] Dept documented in this encounterOhiohealth Southeastern Medical Center06-23-2025 NoteHNO ID: [id number] Author: MORENITA HILL APRN.TIM Service: ? Author Type: Nurse Practitioner Type: Progress Notes Filed: 11/03/2024 15:59 Note Text: [facility] [place] [facility] Department of Cardiovascular Medicine SECTION OF ELECTROPHYSIOLOGY AND PACING OUTPATIENT VISIT DATE November 03, 2024 OUTPATIENT VISIT TYPE ESTABLISHED PRIMARY CARE PHYSICIAN: Mandeep Houser [address] [place] [address] CHIEF COMPLAINT: Follow Up HISTORY OF PRESENT ILLNESS: Ms. Schmitz is a 79 year old female, patient of Dr. Wellington and Dr. Wells who presents today for a cardiovascular medicine follow-up visit regarding RN RENAL-D which was placed in July of last year during which time she had been admitted to [facility] for acute HFrEF and inability to initiate GDMT. She was deemed excellent candidate for RN RENAL therapy and thus had MDT RN RENAL-D inserted. Since then, Ms. Schmitz reports that overall she has been feeling well. She has noted over the last several months that when shh is anxious or rushing, she may feel her heart racing with some palpitations. When she rests, symptoms resolve. Overall, since device insertion, she has significantly improved functional capacity. She is compliant with all medications. PMH: Chronic NICM s/p MDT RN RENAL-D, dyslipidemia, hypothyroidism, Factor V Leiden, IBS, h/o gout PAST MEDICAL HISTORY Diagnosis Date Acute acalculous cholecystitis 05/30/2020 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 09/22/2020 Acute on chronic systolic CHF (congestive heart failure) ([facility]) 05/03/2020 Aspiration pneumonia ([facility]) 05/30/2020 Chest pain 05/03/2020 Chest pressure 01/23/2013 Chronic diastolic congestive heart failure ([facility]) 02/14/2021 Clostridium difficile diarrhea 09/28/2020 Complete uterovaginal prolapse Cystocele, midline Essential hypertension 06/14/2020 Homozygous Factor V Leiden mutation ([facility]) 05/03/2020 Hypothyroidism IBS (irritable bowel syndrome) 01/23/2013 [...] capsule by mouth thre (more content not included)...[facility]06-23-2025 NoteHNO ID: [id number] Author: PILI WELLS MD Service: ? Author Type: Physician Type: Progress Notes Filed: 11/09/2024 17:30 Note Text: [facility] [place] [facility] SECTION OF HEART FAILURE and CARDIAC TRANSPLANT MEDICINE [facility] OUTPATIENT VISIT DATE November 03, 2024 OUTPATIENT VISIT TYPE Established PRIMARY CARE PHYSICIAN: Mandeep Houser [address] [place] [address] CHIEF COMPLAINT: Follow Up HISTORY OF PRESENT ILLNESS: Sandra Schmitz is a 78 year old female with a medical history that includes non-ischemic CM, HTN, Hypothyroidism, LBBB s/p RN RENAL-D who is referred to me for heart failure management. Sandra Schmitz was initially diagnosed with non-ischemic CM ~ 4 yrs ago and was doing well on losartan and metoprolol. She had progressive sxs of dyspnea on exertion, therefore she was started on entresto and farxiga and her sxs persisted and she was admitted locally in [place] and then transferred to for RN RENAL consideration. Interval History: Sandra Schmitz was last [...] LVEF 40%, LVEdd 4.8cm. LBBB: chronic. S/p RN RENAL 07/2023 Non-obstructive CAD: stable, ischemic testing recently [...] pressure 01/23/2013 Chronic diastolic congestive heart failure ([facility]) 02/14/2021 Clostridium difficile diarrhea 09/28/2020 Complete uterovaginal [...] Short of breath, sympto (more content not included)...[facility] 11-03-2024 History of Present illness Narrative* Pili Wells MD - 11/03/2024 2:17 PM EDT Images from the original note were not included. [facility] [place] [facility] SECTION OF HEART FAILURE and CARDIAC TRANSPLANT MEDICINE [facility] OUTPATIENT VISIT DATE November 03, 2024 OUTPATIENT VISIT TYPE Established PRIMARY CARE PHYSICIAN: Mandeep Houser [address] [place] [address] CHIEF COMPLAINT: Follow Up HISTORY OF PRESENT ILLNESS: Sandra Schmitz is a 78 year old female with a medical history that includes non-ischemic CM, HTN, Hypothyroidism, LBBB s/p RN RENAL-D who is referred to me for heart failure management. Sandra Schmitz was initially diagnosed with non-ischemic CM ~ 4 yrs ago and was doing well on losartan and metoprolol. She had progressive sxs of dyspnea on exertion, therefore she was started on entresto and farxiga and her sxs persisted and she was admitted locally in [place] and then transferredto for RN RENAL consideration. Interval History: Sandra Schmitz was last [...] LVEF 40%, LVEdd 4.8cm. LBBB: chronic. S/p RN RENAL 07/2023 Non-obstructive CAD: stable, ischemic testing recently with no ischemia or infarction. 06/2023 Nuc SPECT: no ischemia or infarction. 10/2021 Cath: mod LAD, D1 prox 40%, mild RCA disease dominant, EF 35%. Hx of HTN: PAST MEDICAL HISTORY Diagnosis Date Acute acalculous cholecystitis 05/30/2020 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 09/22/2020 Acute on chronic systolic CHF (congestive heart failure) ([facility]) 05/03/2020 Aspiration pneumonia ([facility]) 05/30/2020 Chest pain 05/03/2020 Chest pressure 01/23/2013 Chronic diastolic congestive heart failure ([facility]) 02/14/2021 Clostridium difficile diarrhea 09/28/2020 Complete uterovaginal prolapse Cystocele, midline Essential hypertension 06/14/2020 Homozygous Factor V Leiden mutation ([facility]) 05/03/2020 Hypothyroidism IBS (irritable bowel syndrome) 01/23/2013 [...] to tingling/BADILLO - Vasodilators: no - Device: RN RENAL-D - Cardiomems: no - Other: lasix 20mg [...] above. Continues to report symptomatic improvement with RN RENAL. Echo 08/2023 reviewed - LVEF remains low, LV not as dilated, MR improved as well. + LVH GDMT: as above, increase toprol XL to 50mg daily Labs 07/08/24 reviewed: K 4.9, Cr 0.85, NT pro 2.1K Due to suboptimal RN RENAL pacing increase toprol XL to 50mg daily --> seeing EP after this appointment. Discussed amyloid testing as well --> she doesn't wish to pursue currently 2. Non-obsctructive CAD: on aspirin and toprol as above On aspirin 81mg daily, not on statin - reports intolerance. 3. PVCs; LBBB s/p RN RENAL-D -- suboptimal RN RENAL pacing: increasing toprol XL given PVCs on [...] Wells MD Advanced Heart Failure and Transplant Milieu Therapist [facility] [place] [address] Appointment: [phone] documented in this encounterOhiohealth Southeastern Medical Center06-23-2025 Instructions* Patient Instructions* Pili Wells MD - [...] and weight daily. Please notify us via Clipik if your Systolic BP (top number) < [...] heart kidney injury risk Please send a Titansan message or call with any questions or concerns: Outpatient Number: [phone] Thank you, Pili Wells MD Advanced Heart Failure and Transplant Milieu Therapist [address], [place] [address] For [facility] patients , contact: [facility]- Section Of Heart Failure and Cardiac Transplant Medicine [facility] [place] [facility] - Desk [phone] [phone] [facility] Nurse Line and for Refills- call [phone] [facility] Scheduling Line- to make appointments- call [phone] documented in this encounterOhiohealth Southeastern Medical Center06-10-2025 NoteHNO ID: [id number] Author: MANDEEP HOUSER, DO Service: ? Author [...] on chronic systolic CHF (congestive heart failure) ([facility]) 05/03/2020 Aspiration pneumonia ([facility]) 05/30/2020 Chest pain 05/03/2020 Chest pressure 01/23/2013 Chronic diastolic congestive heart failure ([facility]) 02/14/2021 Clostridium difficile diarrhea 09/28/2020 Complete uterovaginal prolapse Cystocele, midline Essential hypertension 06/14/2020 Homozygous Factor V Leiden mutation ([facility]) 05/03/2020 Hypothyroidism IBS (irritable bowel syndrome) 01/23/2013 [...] right head, [id number] Right (more content not included)...[facility]06-10-2025 History of Present illness Narrative* Mandeep [...] on chronic systolic CHF (congestive heart failure) ([facility]) 05/03/2020 Aspiration pneumonia ([facility]) 05/30/2020 Chest pain 05/03/2020 Chest pressure 01/23/2013 Chronic diastolic congestive heart failure ([facility]) 02/14/2021 Clostridium difficile diarrhea 09/28/2020 Complete uterovaginal prolapse Cystocele, midline Essential hypertension 06/14/2020 Homozygous Factor V Leiden mutation ([facility]) 05/03/2020 Hypothyroidism IBS (irritable bowel syndrome) 01/23/2013 [...] plan. See patient instructions. Mandeep Houser DO [address] [place] [address] documented in this encounterOhiohealth Southeastern Medical Center05-20-2025 NoteHNO ID: [id number] Author: MANDEEP HOUSER DO Service: ? Author [...] on chronic systolic CHF (congestive heart failure) ([facility]) 05/03/2020 Aspiration pneumonia ([facility]) 05/30/2020 Chest pain 05/03/2020 Chest pressure 01/23/2013 Chronic diastolic congestive heart failure ([facility]) 02/14/2021 Clostridium difficile diarrhea 09/28/2020 Complete uterovaginal prolapse Cystocele, midline Essential hypertension 06/14/2020 Homozygous Factor V Leiden mutation ([facility]) 05/03/2020 Hypothyroidism IBS (irritable bowel syndrome) 01/23/2013 [...] leg Right lower leg (more content not included)...[facility] 09-15-2024 NoteHNO ID: [id number] Author: DORINDA YOUNG MA Service: ? Author Type: [employer] Machine Operator Type: Progress Notes Filed: 09/15/2024 12:40 Note Text: POPULATION HEALTH NAVIGATION OUTREACH Action/FYI Called and left a message to call [phone], to discuss health maintenance items that are [...] Dorinda Young MA September 15, 2024 12:39 [facility]05-05-2025 History of Present illness Narrative* Dorinda Young MA - 09/15/2024 12:39 PM EDT POPULATION HEALTH NAVIGATION OUTREACH Action/FYI Called and left a message to call [phone], to discuss health maintenance items that are [...] 15, 2024 12:39 PM documented in this encounterOhiohealth Southeastern Medical Center05-05-2025 NotePatient Outreach (NETNAV) SANDRA SCHMITZ ([id number]) 1945 F Date Time Provider Department 09/15/24 DORINDA YOUNG During your visit today, we recorded the following information about you: Dorinda Young MA 09/15/2024 12:40 PM Addendum POPULATION HEALTH NAVIGATION OUTREACH Action/MARIVEL Called and left a message to call [phone], to discuss health maintenance items that are [...] right [M19.071] 08/02/2022 Coronary artery disease involving paimiut lopez*08/02/2022 Vitamin D deficiency [E55.9] 08/02/2022 Somatic dysfunction of head region [M99.00] 08/10/2022 Chronic neck pain [M54.2, G89.29] 08/24/2022 Chronic bronchitis (HCC) [J42] 09/11/2022 SVT (supraventricular tachycardia) (HCC) [I47.1*09/11/2022 Combined systolic and diastolic cardi (more content not included)...[facility]04-17-2025 NoteHNO ID: [id number] Author: MANDEEP HOUSER, DO Service: ? Author [...] on chronic systolic CHF (congestive heart failure) ([facility]) 05/03/2020 Aspiration pneumonia ([facility]) 05/30/2020 Chest pain 05/03/2020 Chest pressure 01/23/2013 Chronic diastolic congestive heart failure ([facility]) 02/14/2021 Clostridium difficile diarrhea 09/28/2020 Complete uterovaginal prolapse Cystocele, midline Essential hypertension 06/14/2020 Homozygous Factor V Leiden mutation ([facility]) 05/03/2020 Hypothyroidism IBS (irritable bowel syndrome) 01/23/2013 [...] ankle arthrosis bracing ASSESSMENT/PLAN: (more content not included)...[facility]04-17-2025 History of Present illness Narrative* Mandeep [...] on chronic systolic CHF (congestive heart failure) ([facility]) 05/03/2020 Aspiration pneumonia ([facility]) 05/30/2020 Chest pain 05/03/2020 Chest pressure 01/23/2013 Chronic diastolic congestive heart failure (HCC) 02/14/2021 Clostridium difficile diarrhea 09/28/2020 Complete uterovaginal prolapse Cystocele, midline Essential hypertension 06/14/2020 Homozygous Factor V Leiden mutation ([facility]) 05/03/2020 Hypothyroidism IBS (irritable bowel syndrome) 01/23/2013 [...] See patient instructions. Mandeep Houser DO [address] [place] [address] documented in this encounterOhiohealth Southeastern Medical Center04-16-2025 Miscellaneous Notes* Telephone Encounter - Radha Buchanan - 08/27/2024 10:22 AM EDT Call to patient to r/s. Patient is driving out from [place] and would prefer all appointments same day as Dr. Wells. Rescheduled to Friday 11/03 with device check, OV with Morenita Hill and Dr. Wells. * Telephone Encounter - Radha Buchanan - 08/27/2024 10:21 AM EDT ----- Message from Dilcia Bonilla MD sent at 08/23/2024 9:30 AM EDT ----- I saw her in '24 Please reschedule with Mercedes + device documented in this encounterOhiohealth Southeastern Medical Center04-16-2025 Telephone encounter Note * Telephone Encounter - Radha Buchanan - 08/27/2024 10:22 AM EDT Call to patient to r/s. Patient is driving out from [place] and would prefer all appointments same day as Dr. Wells. Rescheduled to Friday 11/03 with device check, OV with Morenita Hill and Dr. Wells. [facility] Telephone encounter Note* Telephone Encounter - Radha Buchanan - 08/27/2024 10:21 AM EDT ----- Message from Dilcia Bonilla MD sent at 08/23/2024 9:30 AM EDT ----- I saw her in '24 Please reschedule with Mercedes + device [facility]-14-[facility] Instructions* Patient Instructions* Mandeep Houser DO - 08/25/2024 4:32 PM EDT Magnesium glycinate 250-500 mg in the evening with supper Use as a capsule or powder or tablet To help muscles documented in this encounterOhiohealth Southeastern Medical Center03-25-2025 NoteHNO ID: [id number] Author: MANDEEP HOUSER DO Service: ? Author [...] pain - ICD (more content not included)... [facility]03-25-2025 History of Present illness Narrative* Mandeep [...] on chronic systolic CHF (congestive heart failure) ([facility]) 05/03/2020 Aspiration pneumonia ([facility]) 05/30/2020 Chest pain 05/03/2020 Chest pressure 01/23/2013 Chronic diastolic congestive heart failure ([facility]) 02/14/2021 Clostridium difficile diarrhea 09/28/2020 Complete uterovaginal prolapse Cystocele, midline Essential hypertension 06/14/2020 Homozygous Factor V Leiden mutation ([facility]) 05/03/2020 Hypothyroidism IBS (irritable bowel syndrome) 01/23/2013 [...] See patient instructions. Mandeep Houser DO [address] [place] [address] documented in this encounterOhiohealth Southeastern Medical Center03-10-2025 NoteHNO ID: [id number] Author: MANDEEP HOUSER DO Service: ? Author [...] October Would like to have her medical armhole baster jumpbasting more local for better accessibility She had labs and a chest xray Currently Cough, chest congestion, symptoms are improved. Just still with some fatigue but seems to be getting better. No further cough, no sputum production, no fevers or chills. Heart failure. Has an echo to get scheduled and completed for the armhole baster jumpbasting, taking her medications as prescribed. PAST MEDICAL HISTORY Diagnosis Date Acute acalculous cholecystitis 05/30/2020 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 09/22/2020 Acute on chronic systolic CHF (congestive heart failure) ([facility]) 05/03/2020 Aspiration pneumonia ([facility]) 05/30/2020 Chest pain 05/03/2020 Chest pressure 01/23/2013 Chronic diastolic congestive heart failure ([facility]) 02/14/2021 Clostridium difficile diarrhea 09/28/2020 Complete uterovaginal prolapse Cystocele, midline Essential hypertension 06/14/2020 Homozygous Factor V Leiden mutation ([facility]) 05/03/2020 Hypothyroidism IBS (irritable bowel syndrome) 01/23/2013 [...] EOMs intact b/l, na (more content not included)...[facility]03-10-2025 History of Present illness Narrative* Mandeep [...] October Would like to have her medical armhole baster jumpbasting more local for better accessibility She had labs and a chest xray Currently Cough, chest congestion, symptoms are improved. Just still with some fatigue but seems to be getting better. No further cough, no sputum production, no fevers or chills. Heart failure. Has an echo to get scheduled and completed for the armhole baster jumpbasting, taking her medications as prescribed. PAST MEDICAL HISTORY Diagnosis Date Acute acalculous cholecystitis 05/30/2020 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 09/22/2020 Acute on chronic systolic CHF (congestive heart failure) ([facility]) 05/03/2020 Aspiration pneumonia (HCC) 05/30/2020 Chest pain [...] 428.0, ICD10: I50.42 - chronic, managed by Milieu Therapist 7. Vitamin D deficiency - ICD9: 268.9, ICD10: E55.9 Increase dose of supplement as d/w her today Mandeep Houser DO Return if no improvement. Follow up with Mandeep Houser DO. To ER if develops chest pain, shortness of breath. Discussed risks, benefits, alternatives, and potential side effects of medications. Patient/Guardian expressed understanding and agreed with the plan. See patient instructions. Mandeep Houser DO [address] [place] [address] documented in this encounterOhiohealth Southeastern Medical Center02-25-2025 History of Present illness Narrative* Boone Neumann [...] PATIENT PRESENTS WITH AN IMPLANTABLE OR ATTACHED FIELD TECHNICAL ASSISTANT: No RADIOLOGY DEPARTMENT: General X-ray: Exam(s) Completed: Chest X-Ray PERIPHERAL IV DATA: Not applicable SIGNED BY: Marino Arevalo July 08, 2024 3:31 PM documented in this encounterOhiohealth Southeastern Medical Center02-25-2025 NoteHNO ID: [id number] Author: BOONE NEUMANN Tech Service: ? Author [...] PATIENT PRESENTS WITH AN IMPLANTABLE OR ATTACHED FIELD TECHNICAL ASSISTANT: No RADIOLOGY DEPARTMENT: General X-ray: Exam(s) Completed: Chest X-Ray PERIPHERAL IV DATA: Not applicable SIGNED BY: Marino Arevalo July 08, 2024 3:31 [facility]02-25-2025 NoteHNO ID: [id number] Author: MANDEEP HOUSER, DO Service: ? Author [...] October Would like to have her medical armhole baster jumpbasting more local for better accessibility PAST MEDICAL HISTORY Diagnosis Date Acute acalculous cholecystitis 05/30/2020 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 09/22/2020 Acute on chronic systolic CHF (congestive heart failure) ([facility]) 05/03/2020 Aspiration pneumonia ([facility]) 05/30/2020 Chest pain 05/03/2020 Chest pressure 01/23/2013 Chronic diastolic congestive heart failure (HCC) 02/14/2021 Clostridium difficile diarrhea 09/28/2020 Complete uterovaginal prolapse Cystocele, midline Essential hypertension 06/14/2020 Homozygous Factor V Leiden mutation ([facility]) 05/03/2020 Hypothyroidism IBS (irritable bowel syndrome) 01/23/2013 [...] (primary diagnosis) Injection o (more content not included)...[facility]02-25-2025 History of Present illness Narrative* Mandeep [...] October Would like to have her medical armhole baster jumpbasting more local for better accessibility PAST MEDICAL HISTORY Diagnosis Date Acute acalculous cholecystitis 05/30/2020 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 09/22/2020 Acute on chronic systolic CHF (congestive heart failure) ([facility]) 05/03/2020 Aspiration pneumonia ([facility]) 05/30/2020 Chest pain 05/03/2020 Chest pressure 01/23/2013 Chronic diastolic congestive heart failure ([facility]) 02/14/2021 Clostridium difficile diarrhea 09/28/2020 Complete uterovaginal prolapse Cystocele, midline Essential hypertension 06/14/2020 Homozygous Factor V Leiden mutation ([facility]) 05/03/2020 Hypothyroidism IBS (irritable bowel syndrome) 01/23/2013 [...] chronic, recheck labs Check CXR F/u with Milieu Therapist - NT PRO BNP - COMPLETE BLOOD [...] plan. See patient instructions. Mandeep Houser DO [address] [place] [address] documented in this encounterOhiohealth [facility]02-25-2025 Instructions* Patient Instructions* Mandeep Houser DO - 07/08/2024 2:50 PM EST Milieu Therapist local options Dr.Sleik Dr. Downs Options for mood Low dose of valerian root 250-500 mg in the evening Light box therapy consideration of light at 10,000 Lux strength- 20-30 minutes a day in the AM fromFeb through August to help mood, can buy this on [place] for use documented in this encounterOhiohealth [facility]02-18-2025 Telephone encounter Note * Telephone Encounter - Mandeep Houser DO - 07/01/2024 12:19 PM EST The following approved medication requests have been transmitted electronically. Requested Prescriptions Signed Prescriptions Disp Refills doxycycline (VIBRA-TABS) 100 mg tablet 20 tablet 0 Sig: Take 1 tablet by mouth two times a day for 10 days. Authorizing Provider: MANDEEP HOUSER DO [facility]02-18-2025 Miscellaneous Notes* Telephone Encounter - Mandeep Houser DO - 07/01/2024 12:19 PM EST The following approved medication requests have been transmitted electronically. Requested Prescriptions Signed Prescriptions Disp Refills doxycycline (VIBRA-TABS) 100 mg tablet 20 tablet 0 Sig: Take 1 tablet by mouth two times a day for 10 days. Authorizing Provider: MANDEEP HOUSER DO documented in this encounterOhiohealth [facility]02-07-2025 NoteHNO ID: [id number] Author: MANDEEP HOUSER DO Service: ? Author [...] on chronic systolic CHF (congestive heart failure) ([facility]) 05/03/2020 Aspiration pneumonia ([facility]) 05/30/2020 Chest pain 05/03/2020 Chest pressure 01/23/2013 Chronic diastolic congestive heart failure (HCC) 02/14/2021 Clostridium difficile diarrhea 09/28/2020 Complete uterovaginal prolapse Cystocele, midline Essential hypertension 06/14/2020 Homozygous Factor V Leiden mutation ([facility]) 05/03/2020 Hypothyroidism IBS (irritable bowel syndrome) 01/23/2013 [...] pain - ICD (more content not included)... [facility]02-07-[facility]25 History of Present illness Narrative* Mandeep [...] on chronic systolic CHF (congestive heart failure) ([facility]) 05/03/2020 Aspiration pneumonia ([facility]) 05/30/2020 Chest pain 05/03/2020 Chest pressure 01/23/2013 Chronic diastolic congestive heart failure ([facility]) 02/14/2021 Clostridium difficile diarrhea 09/28/2020 Complete uterovaginal [...] plan. See patient instructions. Mandeep Houser DO [address] [place] [address] documented in this encounterOhiohealth [facility] Center01-17-2025 NoteHNO ID: [id number] Author: MANDEEP HOUSER DO Service: ? Author [...] pressure 01/23/2013 Chronic diastolic congestive heart failure ([facility]) 02/14/2021 Clostridium difficile diarrhea 09/28/2020 Complete uterovaginal prolapse Cystocele, midline Essential hypertension 06/14/2020 Homozygous Factor V Leiden mutation ([facility]) 05/03/2020 Hypothyroidism IBS (irritable bowel syndrome) 01/23/2013 [...] neurovascular tone of ar (more content not included)...[facility]01-17-2025 History of Present illness Narrative* Mandeep [...] on chronic systolic CHF (congestive heart failure) ([facility]) 05/03/2020 Aspiration pneumonia ([facility]) 05/30/2020 Chest pain 05/03/2020 Chest pressure 01/23/2013 Chronic diastolic congestive heart failure ([facility]) 02/14/2021 Clostridium difficile diarrhea 09/28/2020 Complete uterovaginal prolapse Cystocele, midline Essential hypertension 06/14/2020 Homozygous Factor V Leiden mutation ([facility]) 05/03/2020 Hypothyroidism IBS (irritable bowel syndrome) 01/23/2013 [...] plan. See patient instructions. Mandeep Houser DO [address] [place] [address] documented in this encounterOhiohealth [facility]12-30-2024 NoteHNO ID: [id number] Author: MANDEEP HOUSER DO Service: ? Author [...] on chronic systolic CHF (congestive heart failure) ([facility]) 05/03/2020 Aspiration pneumonia ([facility]) 05/30/2020 Chest pain 05/03/2020 Chest pressure 01/23/2013 Chronic diastolic congestive heart failure ([facility]) 02/14/2021 Clostridium difficile diarrhea 09/28/2020 Complete uterovaginal prolapse Cystocele, midline Essential hypertension 06/14/2020 Homozygous Factor V Leiden mutation ([facility]) 05/03/2020 Hypothyroidism IBS (irritable bowel syndrome) 01/23/2013 [...] - ICD9: 724.1, 338.29, (more content not included)...[facility]12-30-[facility] History of Present illness Narrative* Mandeep [...] on chronic systolic CHF (congestive heart failure) ([facility]) 05/03/2020 Aspiration pneumonia ([facility]) 05/30/2020 Chest pain 05/03/2020 Chest pressure 01/23/2013 Chronic diastolic congestive heart failure ([facility]) 02/14/2021 Clostridium difficile diarrhea 09/28/2020 Complete uterovaginal prolapse Cystocele, midline Essential hypertension 06/14/2020 Homozygous Factor V Leiden mutation ([facility]) 05/03/2020 Hypothyroidism IBS (irritable bowel syndrome) 01/23/2013 [...] plan. See patient instructions. Mandeep Houser DO [address] [place] [address] documented in this encounterOhiohealth [facility]12-10-2024 NoteHNO ID: [id number] Author: MANDEEP HOUSER DO Service: ? Author [...] on chronic systolic CHF (congestive heart failure) ([facility]) 05/03/2020 Aspiration pneumonia ([facility]) 05/30/2020 Chest pain 05/03/2020 Chest pressure 01/23/2013 [...] fullness right head, C3-5 (more content not included)...[facility]12-10-[facility] History of Present illness Narrative* Mandeep [...] on chronic systolic CHF (congestive heart failure) ([facility]) 05/03/2020 Aspiration pneumonia ([facility]) 05/30/2020 Chest pain 05/03/2020 Chest pressure 01/23/2013 Chronic diastolic congestive heart failure ([facility]) 02/14/2021 Clostridium difficile diarrhea 09/28/2020 Complete uterovaginal prolapse Cystocele, midline Essential hypertension 06/14/2020 Homozygous Factor V Leiden mutation ([facility]) 05/03/2020 Hypothyroidism IBS (irritable bowel syndrome) 01/23/2013 [...] See patient instructions. Mandeep Houser DO [address] [place] [address] documented in this encounterOhiohealth [facility]11-26-2024 Telephone encounter Note * Telephone Encounter - [...] Pennington LPN April 08, 2024 9:26 AM [facility]11-26-2024 Miscellaneous Notes* Telephone Encounter - Mane Pennington [...] thyroid medication rx runs out next month. aMne Pennington LPN April 08, 2024 9:26 AM documented in this encounterOhiohealth [facility]11-11-2024 Telephone encounter Note * Telephone Encounter - Phyllis Levin MA - 03/24/2024 9:51 AM EST Pt notified. Phyllis Levin MA [facility]11-11-2024 Miscellaneous Notes* Telephone Encounter - Phyllis Levin [...] can send the Rx? documented in this encounterOhiohealth [facility]11-08-2024 Telephone encounter Note * Telephone Encounter - Mandeep Houser DO - 03/21/2024 5:06 PM EST The following approved medication requests have been transmitted electronically. Requested Prescriptions Signed Prescriptions Disp Refills doxycycline (VIBRA-TABS) 100 mg tablet 20 tablet 0 Sig: Take 1 tablet by mouth two times a day for 10 days. Authorizing Provider: MANDEEP HOUSER DO [facility]11-08-2024 Telephone encounter Note* Telephone Encounter - Sanjeev Carpio RN - 03/21/2024 11:15 AM EST Patient reports she saw pcp on 03-18-24 for OMT. Reports pcp was going to call in AB to [facility], for her scratchy throat, sinus drainage, pt could take if the s/s continue. Reports Joanna Cleaning never recv'd the Rx. Asking if pcp can send the Rx? [facility]10-24-2024 Telephone encounter Note* Telephone Encounter - Sanjeev Carpio RN - 03/06/2024 2:23 PM EDT Pt returned call and given provider's message below with verbalized understanding. [facility] Miscellaneous Notes* Telephone Encounter - Sanjeev Carpio [...] stable Mandeep Houser DO documented in this encounterOhiohealth [facility] Center10-24-2024 Telephone encounter Note * Telephone Encounter - Meena Brown LPN - 03/06/2024 10:20 AM EDT Left message to return call. [facility] Telephone encounter Note* Telephone Encounter - Mandeep Houser DO - 03/05/2024 10:33 PM EDT Please call patient and let her know that her recent thyroid labs are all stable Mandeep Houser DO [facility]10-01-2024 NoteHNO ID: [id number] Author: MANDEEP HOUSER DO Service: ? Author [...] ICD10: E03.9 (primary diagnos (more content not included)...[facility]10-01-2024 History of Present illness Narrative* Mandeep [...] on chronic systolic CHF (congestive heart failure) ([facility]) 05/03/2020 Aspiration pneumonia ([facility]) 05/30/2020 Chest pain 05/03/2020 Chest pressure 01/23/2013 Chronic diastolic congestive heart failure ([facility]) 02/14/2021 Clostridium difficile diarrhea 09/28/2020 Complete uterovaginal prolapse Cystocele, midline Essential hypertension 06/14/2020 Homozygous Factor V Leiden mutation ([facility]) 05/03/2020 Hypothyroidism IBS (irritable bowel syndrome) 01/23/2013 [...] plan. See patient instructions. Mandeep Houser DO [address] [place] [address] documented in this encounterOhiohealth [facility] Center09-26-2024 NoteHNO ID: [id number] Author: ANGEL CASTRO DO Service: ? Author Type: Physician Type: Progress Notes Filed: 02/07/2024 14:40 Note Text: [facility] [place] Eduardo Department of Cardiovascular Medicine SECTION OF [facility] OUTPATIENT VISIT DATE February 07, 2024 OUTPATIENT VISIT TYPE ESTABLISHED PATIENT Name: Sandra Schmitz : 1945 Date: February 07, 2024 PRIMARY CARE PHYSICIAN: Mandeep Houser [address] [place] [address] REFERRING PHYSICIAN: No referring provider defined for this encounter. 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 - [facility] 10/2021: mod LAD, D1 prox 40%, [...] breath or increasing abdominal girth. - s/p RN RENAL-D 07/16/23 at [facility] - Follows with advanced heart failure, - Follows with EPDr. Wellington and continue follow-up in the device clinic Left bundle branch block - s/p RN RENAL-D 07/16/23 at [facility] - Follows with EP, Dr. Wellington Nonobstructive coronary artery disease - [facility] 10/2021: mod LAD, D1 prox 40%, [...] an ejection fraction of 23% status post RN RENAL-D in July 2023, hypertension and factor V [...] on chronic systolic CHF (congestive heart failure) ([facility]) 05/03/2020 Aspiration pneumonia ([facility]) 05/30/2020 Chest pain 05/03/2020 Chest pressure 01/23/2013 Chronic diastolic congestive heart failure ([facility]) 02/14/2021 Clostridium difficile diarrhea 09/28/2020 Complete uterovaginal prolapse Cystocele, midline Essential hypertension 06/14/2020 Homozygous Factor V Leiden mutation ([facility]) 05/03/2020 Hypothyroidism IBS (irritable bowel syndrome) 01/23/2013 [...] Relation Age of Onset (more content not included)...[facility]09-26-[facility] History of Present illness Narrative* Angel Castro, DO - 02/07/2024 2:02 PM EDT Images from the original note were not included. [facility] [place] Department of Cardiovascular Medicine SECTION OF [facility] OUTPATIENT VISIT DATE February 07, 2024 OUTPATIENT VISIT TYPE ESTABLISHED PATIENT Name: Sandra Schmitz : 1945 Date: February 07, 2024 PRIMARY CARE PHYSICIAN: Mandeep Houser [address] [place] [address] REFERRING PHYSICIAN: No referring provider defined for this encounter. 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 - [facility] 10/2021: mod LAD, D1 prox 40%, [...] breath or increasing abdominal girth. - s/p RN RENAL-D 07/16/23 at [facility] - Follows with advanced heart failure, - Follows with Dr. Kitty DIAZ and continue follow-up in the device clinic Left bundle branch block - s/p RN RENAL-D 07/16/23 at [facility] - Follows with EPDr. [place] Nonobstructive coronary artery disease - [facility] 10/2021: mod LAD, D1 prox 40%, [...] an ejection fraction of 23% status post RN RENAL-D in July 2023, hypertension and factor V [...] on chronic systolic CHF (congestive heart failure) ([facility]) 05/03/2020 Aspiration pneumonia ([facility]) 05/30/2020 Chest pain 05/03/2020 Chest pressure 01/23/2013 Chronic diastolic congestive heart failure (HCC) 02/14/2021 Clostridium difficile diarrhea 09/28/2020 Complete uterovaginal prolapse Cystocele, midline Essential hypertension 06/14/2020 Homozygous Factor V Leiden mutation ([facility]) 05/03/2020 Hypothyroidism IBS (irritable bowel syndrome) 01/23/2013 [...] Cardiovascular testing perfomed today. Angel Castro DO, [facility] Staff Milieu Therapist Angel and Lizy Nuno Dept. of Cardiovascular Medicine Heart, Vascular and Thoracic [place], [facility] This document was generated using the assistance of voice recognition software. If there are any errors of spelling, grammar, syntax or meaning, please feel free to contact me directly at anytime. documented in this encounterOhiohealth [facility] Medical Center09-17-2024 NoteHNO ID: [id number] Author: MANDEEP HOUSER DO Service: ? Author [...] on chronic systolic CHF (congestive heart failure) ([facility]) 05/03/2020 Aspiration pneumonia ([facility]) 05/30/2020 Chest pain 05/03/2020 Chest pressure 01/23/2013 Chronic diastolic congestive heart failure ([facility]) 02/14/2021 Clostridium difficile diarrhea 09/28/2020 Complete uterovaginal [...] E03.9 (primary diagnosis) - (more content not included)...[facility]09-17-[facility] History of Present illness Narrative* Mandeep [...] on chronic systolic CHF (congestive heart failure) ([facility]) 05/03/2020 Aspiration pneumonia ([facility]) 05/30/2020 Chest pain 05/03/2020 Chest pressure 01/23/2013 Chronic diastolic congestive heart failure ([facility]) 02/14/2021 Clostridium difficile diarrhea 09/28/2020 Complete uterovaginal prolapse Cystocele, midline Essential hypertension 06/14/2020 Homozygous Factor V Leiden mutation ([facility]) 05/03/2020 Hypothyroidism IBS (irritable bowel syndrome) 01/23/2013 [...] plan. See patient instructions. Mandeep Houser DO [address] [place] [address] documented in this encounterOhiohealth [facility]09-03-2024 NoteHNO ID: [id number] Author: PILI WELLS MD Service: ? Author Type: Physician Type: Progress Notes Filed: 03/07/2024 19:04 Note Text: Heart [facility] [place] [facility] SECTION OF HEART FAILURE and CARDIAC TRANSPLANT MEDICINE [facility] OUTPATIENT VISIT DATE January 15, 2024 OUTPATIENT VISIT TYPE Established PRIMARY CARE PHYSICIAN: Mandeep Houser [address] [place] [address] CHIEF COMPLAINT: Follow Up HISTORY OF PRESENT ILLNESS: Sandra Schmitz is a 78 year old female with a medical history that includes non-ischemic CM, HTN, Hypothyroidism, LBBB s/p RN RENAL-D who is referred to me for heart failure management. Sandra Schmitz was initially diagnosed with non-ischemic CM ~ 4 yrs ago and was doing well on losartan and metoprolol. She had progressive sxs of dyspnea on exertion, therefore she was started on entresto and farxiga and her sxs persisted and she was admitted locally in [place] and then transferred to for RN RENAL consideration. Interval History: Sandra Schmitz was last [...] LVEF 40%, LVEdd 4.8cm. LBBB: chronic. S/p RN RENAL 07/2023 Non-obstructive CAD: stable, ischemic testing recently [...] on chronic systolic CHF (congestive heart failure) ([facility]) 05/30/2020: Aspiration pneumonia ([facility]) 05/03/2020: Chest pain 01/23/2013: Chest pressure 02/14/2021: Chronic diastolic congestive heart failure ([facility]) 09/28/2020: Clostridium difficile diarrhea No date: Complete uterovaginal prolapse No date: Cystocele, midline 06/14/2020: Essential hypertension 05/03/2020: Homozygous Factor V Leiden mutation ([facility]) No date: Hypothyroidism 01/23/2013: IBS (irritable bowel [...] of heart failure Beta (more content not included)...[facility]09-03-2024 History of Present illness Narrative* Pili Wells MD - 01/15/2024 1:13 PM EDT Images from the original note were not included. [facility] [place] [facility] SECTION OF HEART FAILURE and CARDIAC TRANSPLANT MEDICINE [facility] OUTPATIENT VISIT DATE January 15, 2024 OUTPATIENT VISIT TYPE Established PRIMARY CARE PHYSICIAN: Mandeep oHuser [address] [place] [address] CHIEF COMPLAINT: Follow Up HISTORY OF PRESENT ILLNESS: Sandra Schmitz is a 78 year old female with a medical history that includes non-ischemic CM, HTN, Hypothyroidism, LBBB s/p RN RENAL-D who is referred to ne for heart failure management. Sandra Schmitz was initially diagnosed with non-ischemic CM ~ 4 yrs ago and was doing well on losartan and metoprolol. She had progressive sxs of dyspnea on exertion, therefore she was started on entresto and farxiga and her sxs persisted and she was admitted locally in [place] and then transferredto for RN RENAL consideration. Interval History: Sandra Schmitz was last [...] LVEF 40%, LVEdd 4.8cm. LBBB: chronic. S/p RN RENAL 07/2023 Non-obstructive CAD: stable, ischemic testing recently [...] on chronic systolic CHF (congestive heart failure) ([facility]) 05/30/2020: Aspiration pneumonia ([facility]) 05/03/2020: Chest pain 01/23/2013: Chest pressure 02/14/2021: Chronic diastolic congestive heart failure ([facility]) 09/28/2020: Clostridium difficile diarrhea No date: Complete uterovaginal prolapse No date: Cystocele, midline 06/14/2020: Essential hypertension 05/03/2020: Homozygous Factor V Leiden mutation ([facility]) No date: Hypothyroidism 01/23/2013: IBS (irritable bowel [...] to tingling/BADILLO - Vasodilators: no - Device: RN RENAL-D - Cardiomems: no - Other: lasix 20mg daily IMPRESSION and PLAN/Recommendation In summary, Sandra Schmitz is a 78 year old being managed today for the following issues: 1. Non-ischemic Cardiomyopathy/chronic systolic heart failure: NYHA functional class IIb, Stage C heart failure, Clinical Class A - warm and euvolemic. Intolerant to many GDMT as above. Currently will continue. She reports symptomatic improvement post RN RENAL. Echo 11/2023 reviewed - LVEF remains low, LV not as dilated, MR improved as well GDMT: as above Did cardiac rehab. Labs 11/2022 reviwed: K 4.0, Cr 0.96 Following with Gloria as well. 2. Non-obsctructive CAD: on aspirin and toprol as above On aspirin 81mg daily, not on stating - reports intolerance. Following with Dr. Castro. 3. LBBB s/p RN RENAL-D Thank you for allowing me to participate [...] Wells MD Advanced Heart Failure and Transplant Milieu Therapist Heart [facility] [place] [address] Appointment: [phone] documented in this encounterOhiohealth [facility] Center09-03-2024 Instructions* Patient Instructions* Pili Wells MD - [...] and weight daily. Please notify us via Clipik if your Systolic BP (top number) < [...] heart kidney injury risk Please send a Titansan message or call with any questions or concerns: Outpatient Number: [phone] Thank you, Pili Wells MD Advanced Heart Failure and Transplant Milieu Therapist [place] [phone] documented in this encounterOhiohealth [facility]heastern [facility] Center08-29-2024 NoteHNO ID: [id number] Author: MANDEEP HOUSER, DO Service: ? Author [...] on chronic systolic CHF (congestive heart failure) ([facility]) 05/30/2020: Aspiration pneumonia ([facility]) 05/03/2020: Chest pain 01/23/2013: Chest pressure 02/14/2021: Chronic diastolic congestive heart failure ([facility]) 09/28/2020: Clostridium difficile diarrhea No date: Complete uterovaginal prolapse No date: Cystocele, midline 06/14/2020: Essential hypertension 05/03/2020: Homozygous Factor V Leiden mutation ([facility]) No date: Hypothyroidism 01/23/2013: IBS (irritable bowel [...] No edema. No sp (more content not included)...[facility]08-29-[facility] History of Present illness Narrative* Mandeep [...] (congestive heart failure) (HCC) 05/30/2020: Aspiration pneumonia ([facility]) 05/03/2020: Chest pain 01/23/2013: Chest pressure 02/14/2021: [...] plan. See patient instructions. Mandeep Houser DO [address] [place] [address] documented in this encounterOhiohealth Southeastern Medical Center07-31-2024 NoteHNO ID: [id number] Author: MANDEEP HOUSER DO Service: ? Author [...] on chronic systolic CHF (congestive heart failure) ([facility]) 05/30/2020: Aspiration pneumonia ([facility]) 05/03/2020: Chest pain 01/23/2013: Chest pressure 02/14/2021: Chronic diastolic congestive heart failure ([facility]) 09/28/2020: Clostridium difficile diarrhea No date: Complete uterovaginal prolapse No date: Cystocele, midline 06/14/2020: Essential hypertension 05/03/2020: Homozygous Factor V Leiden mutation ([facility]) No date: Hypothyroidism 01/23/2013: IBS (irritable bowel [...] bilateral thoracic back pain (more content not included)...[facility]07-31-2024 History of Present illness Narrative* Mandeep [...] on chronic systolic CHF (congestive heart failure) ([facility]) 05/30/2020: Aspiration pneumonia ([facility]) 05/03/2020: Chest pain 01/23/2013: Chest pressure 02/14/2021: Chronic diastolic congestive heart failure ([facility]) 09/28/2020: Clostridium difficile diarrhea No date: Complete uterovaginal prolapse No date: Cystocele, midline 06/14/2020: Essential hypertension 05/03/2020: Homozygous Factor V Leiden mutation ([facility]) No date: Hypothyroidism 01/23/2013: IBS (irritable bowel [...] plan. See patient instructions. Mandeep Houser DO [address] [place] [address] documented in this encounterOhiohealth Southeastern Medical Center07-29-2024 Telephone encounter Note * Telephone Encounter - [...] edema. No further questions. Pt confirmed understanding. [facility]07-29-[facility] Miscellaneous Notes* Telephone Encounter - Helen Ramachandran [...] 12/10/2023 11:31 AM EDT Pili Wells MD Me, Please call patient with results. She doesn't have mychart for me to send message. Thanks, * Telephone Encounter - Pili Wells MD - 12/06/2023 6:49 PM EDT Echo results reviewed. LVEF remains stable, mitral regurgitation is improved. At this time we will continue with medications. No changes documented in this encounterOhiohealth Southeastern Medical Center07-29-2024 Telephone encounter Note * Telephone Encounter - Helen Ramachandran RN - 12/10/2023 11:31 AM EDT Pili Wells MD Me, Please call patient with results. She doesn't have mychart for me to send message. Thanks, [facility]07-25-[facility] Telephone encounter Note* Telephone Encounter - Pili Wells MD - 12/06/2023 6:49 PM EDT Echo results reviewed. LVEF remains stable, mitral regurgitation is improved. At this time we will continue with medications. No changes [facility]07-17-2024 Telephone encounter Note* Telephone Encounter - Concetta Dahl - 11/28/2023 11:06 AM EDT Transitional Care Management (TCM) [facility] Monitoring Program Provider Action / FYI: N/A SUMMARY: Outreach type: FOLLOW-UP OUTREACH Discharge Network Status: In-Network Discharge Source of Patient: [facility] TCM Discharge Report Patient discharged from [place] on 11/18/23. Admitted for Pre-syncope. Contact made with patient: Yes, for Follow-up Outreach Me, my name is Concettajose a Edmondslela. I am calling from the [facility] on behalf of your PrimaryCare Provider, Mandeep [...] Appointment Center phone number to speak witha wellness specialist who can assist you with that appointment. [...] Concetta Dahl November 28, 2023 11:09 AM [facility]07-17-2024 Miscellaneous Notes* Telephone Encounter - Concetta Dahl - 11/28/2023 11:06 AM EDT Transitional Care Management (TCM) [facility] Monitoring Program Provider Action / FYI: N/A SUMMARY: Outreach type: FOLLOW-UP OUTREACH Discharge Network Status: In-[facility] Patient discharged from [place] on 11/18/23. Admitted for Pre-syncope. Contact made with patient: Yes, for Follow-up Outreach Hi, my name is Concetta Nabila. I am calling from the [facility] on behalf of your PrimaryCare Provider, Mandeep [...] Appointment Center phone number to speak witha wellness specialist who can assist you with that appointment. [...] 28, 2023 11:09 AM documented in this encounterOhiohealth Southeastern Medical Center07-12-2024 Telephone encounter Note * Telephone Encounter - Rojas Prakash RN - 11/23/2023 1:28 PM EDT Transitional Care Management (TCM) [facility] Monitoring Program Provider Action / FYI: na SUMMARY: Outreach type: INITIAL OUTREACH Discharge Network Status: In-Network Discharge Source of Patient: [facility] TCM Discharge Report Patient discharged from [place] on 11.18.23. Admitted for Pre-syncope . Contact made with patient: No - next outreach attempt will be on next business day. Rojas Prakash RN November 23, 2023 1:29 PM [facility]07-12-2024 Miscellaneous Notes* Telephone Encounter - Rojas Prakash RN - 11/23/2023 1:28 PM EDT Transitional Care Management (TCM) [facility] Monitoring Program Provider Action / FYI: na SUMMARY: Outreach type: INITIAL OUTREACH Discharge Network Status: In-Network Discharge Source of Patient: [facility] TCM Discharge Report Patient discharged from [place] on 11.18.23. Admitted for Pre-syncope . Contact made with patient: No - next outreach attempt will be on next business day. Rojas Prakash RN November 23, 2023 1:29 PM documented in this encounterOhiohealth Southeastern Medical Center07-09-2024 Telephone encounter Note * Telephone Encounter - [...] No results found for this basename: BNP [facility]07-09-2024 Miscellaneous Notes* Telephone Encounter - Misty Ascencio [...] for this basename: BNP documented in this encounterOhiohealth Southeastern Medical Center07-06-2024 NoteHNO ID: [id number] Author: REMINGTON CAI MD Service: Hospital Medicine Author Type: Physician Type: Progress Notes Filed: 11/18/2023 08:20 Note Text: DEPARTMENT OF HOSPITAL MEDICINE PROGRESS NOTE SERVICE DATE: 11/17/2023 SERVICE TIME: 3:13 PM Hospital Medicine/Primary Attending: Remington Cai MD NIGHT AND WEEKEND COVERAGE: [place] COVER[employer]: Nights: [phone], please page [facility] Hospitalist Night coverage pager [phone]. Probable discharge: 11/17 Disposition: Home Consultants: PROCEDURES: [...] (1st dx 2019, 07-12-23: EF 26%), s/p RN RENAL-D (July 20, 2023, [employer]), non occlusive CAD ([facility]: ), IBS, Factor V Leiden Syndrome, HTN, HLD, CAD, Hypothyroidism almost blacking out. Patient states that earlier today she was having some abdominal spasms and went to the bathroom. Had a small BM then proceeded to very lightheaded and states her visions kind of went dark but she did not lose full consci (more content not included)...[facility] HospitalEpmpwcsk05-19-5028 NoteHNO ID: [id number] Author: REMINGTON CAI MD Service: Hospital Medicine Author Type: Physician Type: Progress Notes Filed: 11/17/2023 15:12 Note Text: [facility]MENT OF [facility] MEDICINE PROGRESS NOTE SERVICE DATE: 11/16/2023 SERVICE TIME: 2:31 PM Hospital Medicine/Primary Attending: Remington Cai MD NIGHT AND WEEKEND COVERAGE: [place] [employer]: Nights: [phone], please page [place] Hospitalist Night coverage pager [phone]. Probable discharge: 11/16 Disposition: Home Consultants: PROCEDURES: [...] ( dx 2019, 07-12-23: EF 26%), s/p RN RENAL-D (July 20, 2023, [employer]), non occlusive CAD ([facility]: ), IBS, Factor V Leiden Syndrome, HTN, HLD, CAD, Hypothyroidism almost blacking out. Patient states that earlier today she was having some abdominal spasms and went (more content not included)...[facility] [id number] NoteHNO ID: [id number] Author: SADIE TALBERT RN Service: Care Management [...] Determined Advance Directives Current Advance Directive: None Cash Posting Specialist Attempted to Assist with AD Completion: Yes [...] Be able to go home, General wellness [place] of Choice Explained: [place] of Choice Given: No Reason Not Given: [...] 16, 2023 TIME: 9:42 AM CONTACT #: [id number] NoteHNO ID: [id number] Author: JP HENNING CT Service: Cardiovascular Testing Author Type: Clinical Linoleum Installer Type: Progress Notes Filed: 11/16/2023 07:55 Note Text: Summary: Pacemaker Check Received requisition for pacemaker check. Went to patient's room to check device. Patient stated that the device was checked in the ED last night. I checked the patient's hard chart and report from [employer] is in the chart. No need to repeat a device check.[facility] [id number] Telephone encounter Note * Telephone Encounter - Bria Wallace MA - 11/08/2023 8:20 AM EDT Pt notified and verbalized understanding Bria Wallace MA [facility]06-[facility]24 Miscellaneous Notes* Telephone Encounter - Bria Wallace [...] Lymph 1.00 - 4.00 k/uL 4.05 (H) [place]% % 9.1 Abs [place] <0.87 k/uL 0.99 (H) Eosin% % 3.1 [...] chronic microvascular ischemic changes. documented in this encounterOhiohealth Southeastern Medical Center06-26-2024 History of Present illness Narrative* Mandeep Houser [...] on chronic systolic CHF (congestive heart failure) ([facility]) 05/03/2020 Aspiration pneumonia ([facility]) 05/30/2020 Chest pain 05/03/2020 Chest pressure 01/23/2013 Chronic diastolic congestive heart failure ([facility]) 02/14/2021 Clostridium difficile diarrhea 09/28/2020 Complete uterovaginal prolapse Cystocele, midline Essential hypertension 06/14/2020 Homozygous Factor V Leiden mutation ([facility]) 05/03/2020 Hypothyroidism IBS (irritable bowel syndrome) 01/23/2013 [...] M54.50 Xrays as ordered Start on prednisone [place] for severe pain, If xrays are without [...] plan. See patient instructions. Mandeep Houser DO [address] [place] [address] documented in this encounterOhiohealth Southeastern Medical Center06-26-2024 Telephone encounter Note * Telephone Encounter - [...] before breakfast. Authorizing Provider: HOUSERMANDEEP HAUSER DO [facility]06-26-2024 Telephone encounter Note* Telephone Encounter - Petrona Lechuga RN - 11/07/2023 1:03 PM EDT Spoke with patient. Given message from provider's office. Patient verbalizes understanding. Scheduled. Petrona Lechuga RN [facility]06-26-2024 Miscellaneous Notes* Telephone Encounter - Petrona Lechuga [...] on her. Please advise documented in this encounterOhiohealth Southeastern Medical Center06-26-2024 Telephone encounter Note * Telephone Encounter - Mandeep Houser DO - 11/07/2023 12:36 PM EDT Ok for her to come in at 6 pm tonight for an appointment Mandeep Houser DO [facility]06-26-2024 Telephone encounter Note* Telephone Encounter - Mane Pennington LPN - 11/07/2023 10:36 AM EDT Patient calling asking for an OMT appt having back and hip problems. Patient said her hip went out on her. Please advise [facility]06-[facility] Telephone encounter Note* Telephone Encounter - Sanjeev [...] Lymph 1.00 - 4.00 k/uL 4.05 (H) [place]% % 9.1 Abs [place] <0.87 k/uL 0.99 (H) Eosin% % 3.1 [...] 2.1 (L) Legend: (H) High (L) Low [facility]06-25-2024 Telephone encounter Note* Telephone Encounter - Merly Gomez OCCA - 11/06/2023 10:14 AM EDT TC no answer. Left VM to return call. BETTY Wells [facility]06-25-2024 Telephone encounter Note* Telephone Encounter - Mandeep [...] consistent with chronic microvascular ischemic changes. T [facility]06-20-2024 History of Present illness Narrative* Kirstin Stevens [...] PATIENT PRESENTS WITH AN IMPLANTABLE OR ATTACHED FIELD TECHNICAL ASSISTANT: No RADIOLOGY DEPARTMENT: CT; Exam(s) Completed: Brain PERIPHERAL IV DATA: Not applicable SIGNED BY: RT Reyes(Marlee) November 01, 2023 3:05 PM documented in this encounterOhiohealth Southeastern Medical Center06-20-2024 NoteHNO ID: [id number] Author: KIRSTIN STEVENS RT(Marlee) Service: Radiology Author [...] PATIENT PRESENTS WITH AN IMPLANTABLE OR ATTACHED FIELD TECHNICAL ASSISTANT: No RADIOLOGY DEPARTMENT: CT; Exam(s) Completed: Brain PERIPHERAL IV DATA: Not applicable SIGNED BY: RT Reyes(R) November 01, 2023 3:05 [facility]06-20-2024 History of Present illness Narrative* Mercedes Vera APRN.PELLETIZER TENDER - 11/01/2023 9:30 AM EDT Images from the original note were not included. [facility] [place] Eduardo Department of Cardiovascular Medicine SECTION OF CARDIAC PACING and ELECTROPHYSIOLOGY OUTPATIENT VISIT DATE November 01, 2023 OUTPATIENT VISIT TYPE ESTABLISHED PRIMARY CARE PHYSICIAN: Mandeep Houser [address] [place] [address] CHIEF COMPLAINT: follow up s/p RN RENAL-D HISTORY OF PRESENT ILLNESS: Ms. Schmitz is a 78 year old female who presents today for followed by Dr. Wells, Dr. Wellington, Dr. Greenfield ([facility]), Dr. Oneill, non ischemic cardiomyopathy, chronic HFrEF (2019, 07-12-23: EF 26%), s/p RN RENAL-D (July 20, 2023, [employer]), non occlusive CAD ([facility]: ), Other PMH of hypertension, hyperlipidemia, [...] on chronic systolic CHF (congestive heart failure) ([facility]) 05/03/2020 Aspiration pneumonia ([facility]) 05/30/2020 Chest pain 05/03/2020 Chest pressure 01/23/2013 [...] - 4.00 k/uL 3.09 3.14 4.05 (H) [place]% % 8.6 7.3 9.1 Abs [place] <0.87 k/uL 1.15 (H) 0.72 0.99 (H) [...] Programmed parameters reviewed * Presenting rhythm reviewed: /QUARTZ MINER * Heart Rate Histograms reviewed * No [...] pacing <0.1%. total V pacing 97.9%. Adaptive RN RENAL shows BiV pacing 6.8%, LV only pacing [...] chronic HFrEF (2019, 07-12-23: EF 26%), s/p RN RENAL-D (July 20, 2023, [employer]), non occlusive CAD ([facility]: ). -normotensive, ventricular pacing, no evidence [...] with more than 50% of the total emox-hm-cddl time of the visit in counseling / coordination of care. CONTACT INFORMATION: Mercedes Vera APRN.TIM, 11/01/23 [facility] [place] [facility] Cardiology [address] [place] [address] documented in this encounterOhiohealth Southeastern Medical Center06-19-2024 History of Present illness Narrative* Mandeep Houser, [...] 3 months had a pacemaker placed by Milieu Therapist- has upcoming follow up for check up. [...] (congestive heart failure) (HCC) 05/03/2020 Aspiration pneumonia ([facility]) 05/30/2020 Chest pain 05/03/2020 Chest pressure 01/23/2013 Chronic diastolic congestive heart failure ([facility]) 02/14/2021 Clostridium difficile diarrhea 09/28/2020 Complete uterovaginal prolapse Cystocele, midline Essential hypertension 06/14/2020 Homozygous Factor V Leiden mutation ([facility]) 05/03/2020 Hypothyroidism IBS (irritable bowel syndrome) 01/23/2013 [...] with the plan. Mandeep Houser DO [address] [place] [address] documented in this encounterOhiohealth Southeastern Medical Center06-18-2024 Telephone encounter Note * Telephone Encounter - Radha Buchanan - 10/30/2023 12:00 PM EDT Patient will call back to confirm or change appointment. Will check with daughter and sister for transportation help. Prefers [place] location with Mercedes. [facility]06-18-[facility]24 Miscellaneous Notes* Telephone Encounter - Radha Buchanan - 10/30/2023 12:00 PM EDT Patient will call back to confirm or change appointment. Will check with daughter and sister for transportation help. Prefers [place] location with Mercedes. * Telephone Encounter - Radha Buchanan - 10/30/2023 11:33 AM EDT Images from the original note were not included. Dilcia Pearson MD Othman, Amal; Shelly Briones MA Can we bring her in for visit with Mercedes (here) or Morenita Chavis at [facility] - earliest available(not urgent) Thx C documented in this encounterOhiohealth Southeastern Medical Center06-18-2024 Telephone encounter Note * Telephone Encounter - Radha Buchanan - 10/30/2023 11:33 AM EDT Images from the original note were not included. Dilcia Pearson MD Othman, Amal; Shelly Briones MA Can we bring her in for visit with Mercedes (here) or Morenita or Palmira at [facility] - earliest available(not urgent) Thx C [facility]06-05-2024 Telephone encounter Note* Telephone Encounter - Anni Herrera LPN - 10/17/2023 11:20 AM EDT Spoke with pt and information listed below given. Pt verbalizes understanding. Anni Herrera LPN [facility]06-05-2024 Miscellaneous Notes* Telephone Encounter - Anni Herrera [...] stable. Take careRupali APRN.CNP documented in this encounterOhiohealth Southeastern Medical Center06-05-2024 Telephone encounter Note * Telephone Encounter - Kelsey Costa LPN - 10/17/2023 10:19 AM EDT Message left to return call. [facility] Work Phone: [phone]) 487-182706-05-2024 Telephone encounter Note* Telephone Encounter - Rupali Nascimento APRN.CNP - 10/17/2023 9:38 AM EDT Please call patient and let her know that lab work looks good. Uric acid level was elevated as we suspected d/t gout flare up. Continue with regimen as discussed. Kidney function is normal and stable. Take care, Rupali Nascimento APRN.PELLETIZER TENDER [facility]06-03-2024 Telephone encounter Note* Telephone Encounter - Rupali Nascimento APRN.CNP - 10/15/2023 12:18 PM EDT Noted. Just saw patient in office and agree with below. Trial of prednisone burst x 4 days and continue with compression stockings was the recommendation. Thank you, Rupali Nascimento APRN.PELLETIZER TENDER [facility]06-03-2024 Miscellaneous Notes* Telephone Encounter - Rupali Nascimento [...] pain, rash, fever, numbness Protocols used: Toe [id number] documented in this encounterOhiohealth Southeastern Medical Center06-03-2024 Instructions* Patient Instructions* Rupali Nascimento APRN.PELLETIZER TENDER - 10/15/2023 11:47 AM EDT .az documented in this encounterOhiohealth Southeastern Medical Center06-03-2024 History of Present illness Narrative* Rupali Nascimento [...] on chronic systolic CHF (congestive heart failure) ([facility]) 05/03/2020 Aspiration pneumonia ([facility]) 05/30/2020 Chest pain 05/03/2020 Chest pressure 01/23/2013 Chronic diastolic congestive heart failure ([facility]) 02/14/2021 Clostridium difficile diarrhea 09/28/2020 Complete uterovaginal prolapse Cystocele, midline Essential hypertension 06/14/2020 Homozygous Factor V Leiden mutation ([facility]) 05/03/2020 Hypothyroidism IBS (irritable bowel syndrome) 01/23/2013 [...] Patient agreeable to treatment plan. Rupali Correa APRN.PELLETIZER TENDER [address] [place] [address] documented in this encounterOhiohealth Southeastern Medical Center06-03-2024 Telephone encounter Note * Telephone Encounter - Jyoti Josue RN - 10/15/2023 11:09 AM EDT Received TE back today and called patient with update. Patient scheduled with PCP office previously. Patient wanting to have PCP check to make sure she doesn't have gout. Dr. Del Cid is out this week. Jyoti Josue RN [facility]05-30-2024 Telephone encounter Note* Telephone Encounter - Jyoti [...] pain, rash, fever, numbness Protocols used: Toe [id number] [facility]05-30-2024 Telephone encounter Note* Telephone Encounter - Sridevi [...] 10/31/2023 Please advise. Thank you. Sridevi Leyva. [facility]05-30-2024 Miscellaneous Notes* Telephone Encounter - Sridevi Leyva [...] Thank you. Sridevi Leyva. documented in this encounterOhiohealth Southeastern Medical Center05-21-2024 History of Present illness Narrative* Pili Wells MD - 10/02/2023 4:00 PM EDT [facility] [place] Department of Cardiovascular Medicine TELEPHONE VISIT (audio [...] visit. Either the patient or their legal sales and merchandising representative has been informed of the risks and benefits of -- and alternatives to -- treatment through a remote evaluation andconsents to proceed with the evaluation remotely. Sandra Schmitz has consented to this telephone encounter. Persons Present: patient Chief Complaint/Reason: Follow up HPI: Sandra Schmitz is a 78 year old female with a medical history that includes non-ischemic CM, HTN, Hypothyroidism, LBBB s/p RN RENAL-D who is referred to me for heart failure management. Sandra Schmitz was initially diagnosed with non-ischemic CM ~ 4 yrs ago and was doing well on losartan and metoprolol. She had progressive sxs of dyspnea on exertion, therefore she was started on entresto and farxiga and her sxs persisted and she was admitted locally in [place] and then transferredto for RN RENAL consideration. Interval History: Sandra Schmitz was last [...] LVEF 40%, LVEdd 4.8cm. LBBB: chronic. S/p RN RENAL 07/2023 Non-obstructive CAD: stable, ischemic testing recently with no ischemia or infarction. 06/2023 Nuc SPECT: no ischemia or infarction. 10/2021 Cath: mod LAD, D1 prox 40%, mild RCA disease dominant, EF 35%. Hx of HTN: BP have been stable Data Reviewed: Device interrogation (09/19/23) OTHER DIAGNOSTICS: RA pacing <0.1%. total V pacing 97.9%. Adaptive RN RENAL shows BiV pacing 6.8%, LV only pacing 93.2%. Assessment: GDMT: - BB: toprol XL 12.5mg daily - ACEI/ARB/ARNI: losartan 25mg daily - MRA: no - SGLT2: unable to tolerate it - Vasodilators: no - Device: RN RENAL - Cardiomems: no - Other: lasix 20mg [...] reviewed Cr: 0.84, K 3.9. Echocardiogram in [place] next month and following with Dr. Castro. 2. HTN: BP well controlled currently. 3. LBBB s/p RN RENAL: Will send message to Dr. Wellington given [...] Wells MD Advanced Heart Failure and Transplant Milieu Therapist [facility] [place] [id number] Appointment: [phone] documented in this encounterOhiohealth Southeastern Medical Center05-20-2024 Instructions* Patient Instructions* Alejandrina Harvey APRN.PELLETIZER TENDER - 10/01/2023 12:41 PM EDT Take the Mucinex twice daily for 14 days. Start the Zpak today. Use the tessalon perles for your cough if they work. Get in at least 60-80oz of water daily. Ok for Tylenol/ibuprofen if necessary. Let me know in the next week if you're not improving. documented in this encounterOhiohealth Southeastern Medical Center05-20-2024 History of Present illness Narrative* Alejandrina Harvey [...] on chronic systolic CHF (congestive heart failure) ([facility]) 05/03/2020 Aspiration pneumonia ([facility]) 05/30/2020 Chest pain 05/03/2020 Chest pressure 01/23/2013 Chronic diastolic congestive heart failure ([facility]) 02/14/2021 Clostridium difficile diarrhea 09/28/2020 Complete uterovaginal prolapse Cystocele, midline Essential hypertension 06/14/2020 Homozygous Factor V Leiden mutation ([facility]) 05/03/2020 Hypothyroidism IBS (irritable bowel syndrome) 01/23/2013 [...] HR Alejandrina Harvey APRN.TIM documented in this encounterOhiohealth Southeastern Medical Center05-20-2024 Telephone encounter Note * Telephone Encounter - Margarita Villalba LPN - 10/01/2023 10:17 AM EDT Patient notified of results and provider's instructions. Patient verbalizes understanding. Margarita Villalba LPN [facility] Work Phone: 1(129) 934-139305-20-2024 Miscellaneous Notes* Telephone Encounter - Margarita Villalba [...] shoes Oliverio Mata DPM documented in this encounterOhiohealth Southeastern Medical Center05-19-2024 Telephone encounter Note * Telephone Encounter - Oliverio Mata - 09/30/2023 8:03 AM EDT Please call patient to inform her that xrays do not show any stress fracture. Continue with good supportive shoes and/or insert in shoes Oliverio Mata DPM [facility] Work Phone: [phone] NoteMULTI CHAMBER ICD REMOTE EVALUATION: PRESENTING EGM: /LVP BATTERY STATUS: Estimated time remaining to YOLI is 11.7 years COUNTERS SINCE: 08/07/23 ATRIAL ARRHYTHMIAS: There have been no atrial detections. VENTRICULAR ARRHYTHMIAS: There have been no ventricular detections. LEAD MEASUREMENTS: Sensing is appropriate. Review of the lead impedance trends are normal. OTHER DIAGNOSTICS: RA pacing <0.1%. total V pacing 97.9%. Adaptive RN RENAL shows BiV pacing 6.8%, LV only pacing 93.2%. FOLLOW UP: Continue 3 month remote transmissions and yearly in-clinic interrogations. Amy Louis RN NOTE TO PROVIDERS: CARD Flowsheets contain detailed device programming and testing data. Paceart/Interrogation PDF can be found under CARDIAC DATA AND REPORT, Scanned Documents section.[id number] Telephone encounter Note* Telephone Encounter - Thuy [...] Dr. Wells 10/01 carlito. Thuy Aguirre APRN.CNP [facility]05-14-2024 Miscellaneous Notes* Telephone Encounter - Thuy Aguirre [...] Thuy Aguirre APRN.CNP documented in this encounterCleveland [id number] History of Present illness Narrative* Nuria Whitten [...] PATIENT PRESENTS WITH AN IMPLANTABLE OR ATTACHED FIELD TECHNICAL ASSISTANT: No RADIOLOGY DEPARTMENT: General X-ray: Exam(s) Completed: Lower Extremity X- Ray(s): Foot, Left PERIPHERAL IV DATA: Not applicable SIGNED BY: RT Daily(R) September 24, 2023 11:01 AM documented in this encounterOhiohealth Southeastern Medical Center05-13-2024 History of Present illness Narrative* Oliverio Mata [...] on chronic systolic CHF (congestive heart failure) ([facility]) 05/03/2020 Aspiration pneumonia ([facility]) 05/30/2020 Chest pain 05/03/2020 Chest pressure 01/23/2013 Chronic diastolic congestive heart failure ([facility]) 02/14/2021 Clostridium difficile diarrhea 09/28/2020 Complete uterovaginal prolapse Cystocele, midline Essential hypertension 06/14/2020 Homozygous Factor V Leiden mutation ([facility]) 05/03/2020 Hypothyroidism IBS (irritable bowel syndrome) 01/23/2013 [...] cardiology Oliverio Mata DPM Podiatry [address] [facility] [address] Dept: [phone] Dept * Sincere Berger RN - 09/24/2023 [...] is in cardiac rehab where she walks [facility], started that on 08/31/23 three times a week. documented in this encounterOhiohealth Southeastern Medical Center05-08-2024 Telephone encounter Note * Telephone Encounter - Ira Welch RN - 09/19/2023 5:43 PM EDT Spoke with patient and talked her through sending remote transmission. Pt states that she feels okay other than mild discomfort, denies any shortness of breath, internal chest pain or feeling unwell. Ira Welch RN [facility]05-08-2024 Miscellaneous Notes* Telephone Encounter - Ira Welch [...] and she asks if that is the [place] thing that sits on the table and [...] was connected that she should contact her armhole baster jumpbasting. Please review. JOHN Rowe documented in this encounterOhiohealth Southeastern Medical Center05-08-2024 Telephone encounter Note * Telephone Encounter - [...] and she asks if that is the [place] thing that sits on the table and turns green. She states she has never had to send one before and isn't sure how to do it so someone will need to walk her through it. I told her to watch for our call. [facility]05-07-2024 Telephone encounter Note* Telephone Encounter - Sanjeev Carpio RN - 09/18/2023 8:22 AM EDT Phoned patient and given provider's message below with verbalized understanding. Patient agreeable and will call back to schedule appt. [facility]05-07-2024 Miscellaneous Notes* Telephone Encounter - Sanjeev Carpio [...] schedule with for further assessment. Alejandrina Harvey APRN.PELLETIZER TENDER * Telephone Encounter - Sanjeev Carpio RN - 09/17/2023 1:11 PM EDT Patient asking provider to review and advise on xray left foot results, and asking if she should schedule appt with Dr. Mata, as the left foot is sill swollen some today. documented in this encounterOhiohealth Southeastern Medical Center05-07-2024 Telephone encounter Note * Telephone Encounter - Alejandrina Harvey APRN.CNP - 09/18/2023 6:57 AM EDT Her foot xray looks stable, nothing acutely concerning. Yes, please assist her to schedule with for further assessment. Alejandrina Harvey APRN.TIM [facility]05-06-2024 Telephone encounter Note* Telephone Encounter - Dianna [...] out to EP doctor Dr. Wellington too. [facility]05-06-2024 Miscellaneous Notes* Telephone Encounter - Dianna Merino [...] doctor Dr. Wellington too. documented in this encounterOhiohealth Southeastern Medical Center05-06-2024 Telephone encounter Note * Telephone Encounter - Concetta Prado PSS - 09/17/2023 1:38 PM EDT Patient stated that while she bent over to weed she felt her pacemaker move forward. Pt had a cardio therapy appt today 09/17/23 and they stated everything was connected that she should contact her armhole baster jumpbasting. Please review. JOHN Rowe [facility]05-06-2024 Telephone encounter Note* Telephone Encounter - Sanjeev Carpio RN - 09/17/2023 1:11 PM EDT Patient asking provider to review and advise on xray left foot results, and asking if she should schedule appt with Dr. Mata, as the left foot is sill swollen some today. [facility]05-02-2024 History of Present illness Narrative* Nuria Whitten [...] PATIENT PRESENTS WITH AN IMPLANTABLE OR ATTACHED FIELD TECHNICAL ASSISTANT: No RADIOLOGY DEPARTMENT: General X-ray: Exam(s) Completed: Lower Extremity X- Ray(s): Foot, Left PERIPHERAL IV DATA: Not applicable SIGNED BY: RT Daily(R) September 13, 2023 11:37 AM documented in this encounterOhiohealth Southeastern Medical Center05-02-2024 History of Present illness Narrative* Alejandrina Harvey [...] OMEPRAZOLE 20 MG CAPSULE,DELAYED RELEASE Alejandrina Harvey APRN.PELLETIZER TENDER Currently: Top of left foot just near the base of her first 2 toes is painful and swollen. Doing therapy. Has hx of pin in her big toe and fusion to second toe. Thinks she may have stepped wrong-started about 1.5 weeks ago. Hurts to walk and now hurting into the ball of her foot. M-W-F at 10:00 therapy/cardiac rehab at [facility]. Past medical history, appointments, medications, allergies reviewed. Previous Medical History PAST MEDICAL HISTORY Diagnosis Date Acute acalculous cholecystitis 05/30/2020 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 09/22/2020 Acute on chronic systolic CHF (congestive heart failure) ([facility]) 05/03/2020 Aspiration pneumonia ([facility]) 05/30/2020 Chest pain 05/03/2020 Chest pressure 01/23/2013 Chronic diastolic congestive heart failure ([facility]) 02/14/2021 Clostridium difficile diarrhea 09/28/2020 Complete uterovaginal prolapse Cystocele, midline Essential hypertension 06/14/2020 Homozygous Factor V Leiden mutation ([facility]) 05/03/2020 Hypothyroidism IBS (irritable bowel syndrome) 01/23/2013 [...] LEFT Alejandrina Harvey APRN.TIM documented in this encounterOhiohealth Southeastern Medical Center04-24-2024 Instructions* Patient Instructions* Thuy Aguirre APRN.CNP - [...] Jardiance. 3. Fasting blood work at any [facility] lab in 2 weeks to check kidney [...] appointment with Dr. Oneill documented in this encounterOhiohealth Southeastern Medical Center04-24-2024 History of Present illness Narrative* Thuy Aguirre APRN.CNP - 09/05/2023 11:00 AM EDT Images from the original note were not included. [facility] [place] Eduardo Department of Cardiovascular Medicine SECTION OF CLINICAL CARDIOLOGY OUTPATIENT VISIT DATE September 05, 2023 OUTPATIENT VISIT TYPE ESTABLISHED PRIMARY CARE PHYSICIAN: Mandeep Houser [address] [place] [address] CHIEF COMPLAINT: Follow up HISTORY OF PRESENT ILLNESS: Ms. Schmitz is a 78 year old female with history of chronic HFrEF, NICM, LBBB, s/p RN RENAL-D (07/2023), nonobstructive CAD, valvular insufficiency, HTN, hypothyroidism, and factor V Leiden mutation who presents today for a cardiovascular medicine follow-up visit. She has historically received her general cardiology care in [place] with Dr. Oneill however after recent admission to [facility] 06/2023 she is looking to establish her [...] She is participating in cardiac rehab in [facility]. She isweighing herself daily and weights [...] on chronic systolic CHF (congestive heart failure) ([facility]) 05/03/2020 Aspiration pneumonia ([facility]) 05/30/2020 Chest pain 05/03/2020 Chest pressure 01/23/2013 Chronic diastolic congestive heart failure ([facility]) 02/14/2021 Clostridium difficile diarrhea 09/28/2020 Complete uterovaginal prolapse Cystocele, midline Essential hypertension 06/14/2020 Homozygous Factor V Leiden mutation ([facility]) 05/03/2020 Hypothyroidism IBS (irritable bowel syndrome) 01/23/2013 [...] 09/11) - Repeat echo 3 months post RN RENAL-D (~10/2023) - Jardiance started 08/31 and Lasix discontinued - BMP 2 weeks after starting Jardiance - Consider increase Losartan dose pending Jardiance response Nonischemic cardiomyopathy - [facility] 10/2021: mod LAD, D1 prox 40%, mild RCA disease - GDMT: - s/p RN RENAL-D 07/16/23 at [facility] - Follows with advanced heart failure, - Follows with EP, Dr. Wellington Left bundle branch block - s/p RN RENAL-D 07/16/23 at [facility] - Follows with EP, Dr. Wellington Nonobstructive coronary artery disease - [facility] 10/2021: mod LAD, D1 prox 40%, [...] October to assess LVEF 3 months s/p RN RENAL-D. Her most recent cholesterol profile is not [...] Wells in September as scheduled and Dr. Mckoen November as scheduled, or sooner should need arise. CONTACT INFORMATION: Thuy Aguirre APRN.TIM Cardiology Nurse Practitioner Section of Regional Cardiology [facility] Dept of Cardiovascular Medicine [facility] [place] [address] Office Office This note was partially generated using [employer] voice recognition system and may contain errors related to that system including grammar, punctuation, spelling, and words that may be inappropriate documented in this encounterOhiohealth Southeastern Medical Center04-15-2024 Miscellaneous Notes* Telephone Encounter - Vinita Fernandez [...] as she states she recently saw her armhole baster jumpbasting and was put on Jardiance. She is calling to see if there is any problem to starting the Jardiance and taking the Fluconozole? Please call pt back after provider review. documented in this encounterOhiohealth Southeastern Medical Center04-12-2024 Miscellaneous Notes* Telephone Encounter - Helen Ramachandran [...] lasix is she taking? documented in this encounterOhiohealth Southeastern Medical Center04-10-2024 Instructions* Patient Instructions* Alejandrina Harvey APRN.TIM - 08/22/2023 11:16 AM EDT Take the prednisone (steroid) if needed for your gout pain. Start taking the omeprazole for your silent reflux, take this at night if you're able. Take the diflucan for yeast infection today. You can repeat it in 3 days if necessary. Your urine testing looks completely normal. documented in this encounterOhiohealth Southeastern Medical Center04-10-2024 History of Present illness Narrative* Alejandrina Harvey [...] on chronic systolic CHF (congestive heart failure) ([facility]) 05/03/2020 Aspiration pneumonia ([facility]) 05/30/2020 Chest pain 05/03/2020 Chest pressure 01/23/2013 Chronic diastolic congestive heart failure ([facility]) 02/14/2021 Clostridium difficile diarrhea 09/28/2020 Complete uterovaginal prolapse Cystocele, midline Essential hypertension 06/14/2020 Homozygous Factor V Leiden mutation ([facility]) 05/03/2020 Hypothyroidism IBS (irritable bowel syndrome) 01/23/2013 [...] OMEPRAZOLE 20 MG CAPSULE,DELAYED RELEASE Alejandrina Harvey APRN.PELLETIZER TENDER documented in this encounterOhiohealth Southeastern Medical Center03-26-2024 History of Present illness Narrative* Dilcia Pearson MD - 08/07/2023 3:22 PM EDT Images from the original note were not included. [facility] [place] [facility] Department of Cardiovascular Medicine SECTION OF CARDIAC PACING and ELECTROPHYSIOLOGY OUTPATIENT VISIT DATE August 07, 2023 OUTPATIENT VISIT TYPE ESTABLISHED PRIMARY CARE PHYSICIAN: Mandeep Houser [address] [place] [address] REFERRING PHYSICIAN: No referring provider defined for this encounter. CHIEF COMPLAINT: Left bundle branch block, nonischemic cardiomyopathy, status post RN RENAL-D HISTORY OF PRESENT ILLNESS: Ms. Schmitz is [...] shows normal lead parametersand effective delivery of RN RENAL. She reports notable improvement in symptoms. We will monitor her device remotely every 3 months Follow-up with EP team on an annual basis CONTACT INFORMATION: Dilcia Bonilla MD documented in this encounterOhiohealth Southeastern Medical Center03-25-2024 Miscellaneous Notes* Telephone Encounter - Helen Ramachandran RN - 08/06/2023 3:41 PM EDT Spoke with pt to confirm appt with Dr. Wells tomorrow. documented in this encounterOhiohealth Southeastern Medical Center03-16-2024 Miscellaneous Notes* Telephone Encounter - Palmira Samuels [...] device related. Please advise. documented in this encounterOhiohealth Southeastern Medical Center03-13-2024 Miscellaneous Notes* Telephone Encounter - Mane Pennington [...] you. Mane Pennington LPN. documented in this encounterOhiohealth Southeastern Medical Center03-13-2024 Miscellaneous Notes* Telephone Encounter - Mane Pennington LPN - 07/25/2023 2:06 PM EDT Phoned patient and went over results, notes from Dr Houser with understanding. * Telephone Encounter - Mandeep Houser DO - 07/25/2023 1:49 PM EDT Please let patient know that overall her labs are stable. No changes at this time Mandeep Houser DO documented in this encounterOhiohealth Southeastern Medical Center03-12-2024 History of Present illness Narrative* Mandeep Houser [...] beta-lorenzo. Unable to schedule pacer defibrillator and [place] and contacted [facility] in August to have Dr. Wellington [...] pacer defibrillator plan to be done at [facility] Disposition: Transfer to [facility] on hospital medicine with consult to Dr. [...] 24 Has a follow up scheduled with [facility] Therapist / Cardiac surgeon in the next 2 [...] and fatigue is improving. Follow up with Milieu Therapist/surgeon Recheck labs. She is taking the metoprolol [...] and fatigue is improving. Follow up with Milieu Therapist/surgeon Recheck labs. She is taking the metoprolol medication - COMP METABOLIC PANEL - CBC + DIFF 5. Acute hypoxic respiratory failure (HCC) - ICD9: 518.81, ICD10: J96.01 - recently hospitalized and medications adjusted down and off Entresto. Had biventricular pacemakerand defibrillator placed and fatigue is improving. Follow up with Milieu Therapist/surgeon Recheck labs. She is taking the metoprolol medication - COMP METABOLIC PANEL - CBC + DIFF 6. Chronic bronchitis, unspecified chronic bronchitis type (HCC) - ICD9: 491.9, ICD10: J42 - recently hospitalized and medications adjusted down and off Entresto. Had biventricular pacemakerand defibrillator placed and fatigue is improving. Follow up with Milieu Therapist/surgeon Recheck labs. She is taking the metoprolol medication - COMP METABOLIC PANEL - CBC + DIFF 7. Atrial fibrillation, unspecified type (HCC) - ICD9: 427.31, ICD10: I48.91 - recently hospitalized and medications adjusted down and off Entresto. Had biventricular pacemakerand defibrillator placed and fatigue is improving. Follow up with [facility] Therapist/surgeon Recheck labs. She is taking the metoprolol medication - COMP METABOLIC PANEL - CBC + DIFF 8. SVT (supraventricular tachycardia) (HCC) - ICD9: 427.89, ICD10: I47.10 - recently hospitalized and medications adjusted down and off Entresto. Had biventricular pacemakerand defibrillator placed and fatigue is improving. Follow up with Milieu Therapist/surgeon Recheck labs. She is taking the metoprolol [...] with the plan. Mandeep Houser DO [address] [place] [address] documented in this encounterOhiohealth Southeastern Medical Center03-08-2024 History of Present illness Narrative* Fitz Mcqueen RN - 07/20/2023 1:09 PM EST TCM Home Visit Referral Source of Stratification: [facility] Hospital Admission Status: Discharged Readmission [...] Dept Phone 07/24/2023 1:40 PM MANDEEP HOUSER [facility] [phone] 08/07/2023 2:30 PM DEVICE CLINIC CARD EPS EDENILSON Reed [phone] 08/07/2023 3:00 PM KITTY MUNOZTODILCIAWestValley [phone] 08/07/2023 3:30 PM PILI [facility] [phone] SUMMARY: Discharge Network Status: In-Network Discharge Pt discharged from [facility] on 07/18/23. Admitted for: Bradycardia Contact made with patient: Yes Hi my name is Fitz Mcqueen RN and I am calling from the [facility] on behalf of your PCP, Mandeep Houser, [...] like to speak with a social work swat team member to help give you support for any [...] I will send your request to a wellness specialist who will contact and assist you with [...] if possible). LAZ Education Ordered -: No iFtz Mcqueen RN documented in this encounterOhiohealth Southeastern Medical Center03-08-2024 Miscellaneous Notes* Telephone Encounter - Cathy Munguia - 07/20/2023 10:17 AM EST PATIENT INFORMATION Record ID: [id number] Patient [facility]: [facility]: [facility] [place]: [facility] Attending: Angelica Silva Center: Hospital Medicine INSTRUCTIONS SN to remind patient of next upcoming appointment date, time, location All Clear [facility] INFORMATION Medical/Nurse Certified Tumor Registrar: Cathy Prakash 1. Your discharge instructions are [...] symptoms? (Standard Question) No documented in this encounterOhiohealth Southeastern Medical Center03-05-2024 NoteHNO ID: [id number] Author: ANGELICA SILVA MD Service: Hospital Medicine Author Type: Physician Type: Progress Notes Filed: 07/18/2023 09:37 Note Text: DEPARTMENT OF HOSPITAL MEDICINE PROGRESS NOTE SERVICE DATE: 07/17/2023 SERVICE TIME: 5:22 PM Hospital Medicine/Primary Attending: Angelica Silva MD NIGHT AND WEEKEND COVERAGE: HERMAN COVERAGE:Team 5 Subjective INTERVAL HPI: The patient [...] at home that made her come to [facility] Patient reports when she was off [...] and Airways Line Duration Peripheral 07/15/23 1115 [facility] Short Right Forearm 20 Gauge 2 days Peripheral 07/16/23 1718 [facility] Left Wrist 20 Gauge 1 day DATA: Diagnostic tests reviewed for today's visit: Most recent labs and imaging results. 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 [...] July 17, 2023 TIME: 5:22 PM etx [id number] Specialty [id number] NoteHNO ID: [id number] Author: ANGELICA SILVA MD Service: Hospital Medicine [...] levels are clinically Insignificant Other, please specify [facility] HospitalAutbyuvs04-70-6884 Miscellaneous Notes* Telephone Encounter - Morenita Hill APRN.CNP - 07/17/2023 11:04 AM EST Please call patient to arrange for appointment with EP ROSEMARY or Dr. Wellington with device check immediately prior at P office. If we could coordinate this for same day she is seeing Dr. Wells, that wouldbe great, in the next ~2 weeks. Thank you! Morenita Hill APRN.CNP documented in this encounterOhiohealth Southeastern Medical Center03-04-2024 NoteHNO ID: [id number] Author: GRISELDA SALMERON MD Service: Anesthesiology Author [...] Schmitz DATE: 2023 TIME: 5:03 PM CSN: [id number] NoteHNO ID: [id number] Author: KEKE DENG APRN.CRNA Service: ? 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 [employer] BO[employer]ING: Keke Deng APRN.CRNA Indications and Patient Condition [...] Schmitz DATE: 2023 TIME: 2:19 PM CSN: [id number] NoteHNO ID: [id number] Author: ANGELICA SILVA MD Service: Hospital Medicine Author Type: Physician Type: Progress Notes Filed: 2023 13:44 Note Text: DEPARTMENT OF HOSPITAL MEDICINE PROGRESS NOTE SERVICE DATE: 2023 SERVICE TIME: 1:41 PM Hospital Medicine/Primary Attending: Angelica Silva MD NIGHT AND WEEKEND COVERAGE: HERMAN COVERAGE:Team 5 Subjective INTERVAL HPI: Patient is [...] and Airways Line Duration Peripheral 07/15/23 1115 [facility] Short Right Forearm 20 Gauge 1 day DATA: Diagnostic tests reviewed for today's visit: Most recent labs and imaging results. 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 chronic LBBB 77 year old female, who presented to [facility] ER due to concerns for chest pressure with associated postural lightheadedness and dyspnea She was subsequently admitted to [facility] She had lexiscan stress test which was [...] IV Lasix And she was transferred to [facility] for consideration of inpatient RN RENAL implantation given her left bundle branch block Patient currently reports significant improvement in chest pain and shortness of breath compared to admission X-ray of the chest no acute cardiopulmonary process proBNP improved Seen by EP appreciate input PT for RN RENAL placement today Plan Continue IV Lasix ( Switch to PO soon) Monitor volume status Consulted with Dr. Wells, advanced heart failure specialist, RN RENAL today Started on lower dose Entresto 24-26 [...] Schmitz DATE: 2023 TIME: 1:41 PM etx [id number] Specialty HospitalNcvtsktp50-84-2201 NoteHNO ID: [id number] Author: ANGELICA SILVA MD Service: Hospital Medicine Author Type: Physician Type: Progress Notes Filed: 07/15/2023 15:41 Note Text: DEPARTMENT OF HOSPITAL MEDICINE PROGRESS NOTE SERVICE DATE: 07/15/2023 SERVICE TIME: 3:33 PM Hospital Medicine/Primary Attending: Angelica Silva MD NIGHT AND WEEKEND COVERAGE: HERMAN COVERAGE:Team 5 Subjective INTERVAL HPI: Patient is [...] and Airways Line Duration Peripheral 07/15/23 1115 [facility] Short Right Forearm 20 Gauge <1 day DATA: Diagnostic tests reviewed for today's visit: Most recent labs and imaging results. 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 EP tentatively planning for RN RENAL Sunday Started on lower dose Entresto 24-26 [...] July 15, 2023 TIME: 3:33 PM etx [id number] Specialty [id number] NoteHNO ID: [id number] Author: ANGELICA SILVA MD Service: Hospital Medicine Author Type: Physician Type: Progress Notes Filed: 07/14/2023 20:15 Note Text: DEPARTMENT OF HOSPITAL MEDICINE PROGRESS NOTE SERVICE DATE: 07/14/2023 SERVICE TIME: 8:01 PM Hospital Medicine/Primary Attending: Angelica Silva MD NIGHT AND WEEKEND COVERAGE: [place] COVERAGE:Team 5 Subjective INTERVAL HPI: patient is [...] 77 year old female, who presented to [facility] due to concerns for chest pressure with associated postural lightheadedness and dyspnea She was subsequently admitted to [facility] She had lexiscan stress test which was [...] IV Lasix And she was transferred [facility] for consideration of inpatient RN RENAL implantation given her left bundle branch block Patient currently reports significant improvement in chest pain and shortness of breath compared to admission X-ray of the chest no acute cardiopulmonary process proBNP improved Seen by EP appreciate input Plan Continue IV Lasix Monitor volume status Consult with Dr. Wells, advanced heart failure specialist, on Sunday morning. EP tentatively planning for RN RENAL Sunday Started on lower dose Entresto 24-26 [...] July 14, 2023 TIME: 8:01 PM etx [id number] Specialty [id number] NoteHNO ID: [id number] Author: ESTELITA LAMB APRN.CNP Service: Cardiovascular Medicine Author Type: Nurse Practitioner Type: Progress Notes Filed: 07/13/2023 09:28 Note Text: Heart [facility] V[facility] [place] Eduardo Department of Cardiovascular Medicine SECTION OF [facility] Progress Note Elements of this note, including [...] DO Consulting Physician: Remington Cai MD Primary Milieu Therapist: Dr. 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 Patient pending transfer to [facility] via medicine team with consults to EP and advanced heart failure. Patient aware of plan and agreeable. Case discussed with Dr. Lobo and nursing staff. Estelita Lamb APRN.PELLETIZER TENDER 07/13/2023 9:21 AM PAST MEDICAL HISTORY PAST [...] IN 2009 EGD 11/08/2012 (more content not included)...[facility] HospitalSefvlvyo90-72-0978 Miscellaneous Notes* Telephone Encounter - Rahul Bee MD - 07/13/2023 7:23 AM EST Hospital Medicine Transfer Received page for transfer request from [facility] to [facility]: Sandra Schmitz is 77 year old female who presented with non ischemic decompensated heart failure EF 26%. Suspected runs of tachycardia of unclear origin. Being transferred for possible RN RENAL. Cannot tolerate betablocker. Currently SBP in 100s. No ICD before. Mild CAD. Reason for transfer: Possible RN RENAL placement Accepted to hospital medicine service at 7:26PM Rahul Bee MD 7:23 AM documented in this encounterOhiohealth Southeastern Medical Center02-29-2024 NoteHNO ID: [id number] Author: ESTELITA LABM APRN.PELLETIZER TENDER Service: Cardiovascular Medicine Author Type: Nurse Practitioner Type: Progress Notes Filed: 07/12/2023 18:56 Note Text: Heart [facility] [place] Department of Cardiovascular Medicine SECTION OF [facility] Progress Note Elements of this note, including [...] DO Consulting Physician: Remington Cai MD Primary Milieu Therapist: Dr. 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 Castro and nursing staff. Estelita Lamb APRN.PELLETIZER TENDER 07/12/2023 1:26 PM ADDENDUM: Echo today shows EF 26% Discussed patient with Dr. Wellington ant [facility] who is agreeable for patient transfer for refractory heart failure despite medications. We will start transfer process via medicine team with consult to EP and advanced heart failure at [facility]. Consideration for RN RENAL-D implant per Dr. Wellington and EP team. Estelita Lamb APRN.PELLETIZER TENDER 07/12/23 6:55 PM PAST MEDICAL HISTORY PAST MEDICAL HISTORY Diagnosis Date Acute acalculous cholecystitis 05/30/2020 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 09/22/2020 Acute on chronic systolic CHF (congestive heart failure) (HCC) 05/03/2020 Aspiration pneumonia ([facility]) 05/30/2020 Chest pain 05/03/2020 Chest pressure 01/23/2013 [...] UTERUS PAST SURGICAL HIST (more content not included)...[facility] HospitalYkhfzoem56-86-3499 Note HNO ID: [id number] Author: REMINGTON CAI MD Service: Hospital Medicine Author Type: Physician Type: Progress Notes Filed: 07/12/2023 10:40 Note Text: DEPARTMENT OF HOSPITAL MEDICINE PROGRESS NOTE SERVICE DATE: 07/12/2023 SERVICE TIME: 9:21 AM Hospital Medicine/Primary Attending: Remington Cai MD NIGHT AND WEEKEND COVERAGE: [place] COVERAGE: Nights: [phone], please page [facility] Hospitalist Night coverage pager [phone]. Reason for Admission: Acute decompensated heart failure concern for ventricular tachycardia being the precipitating factor INTERVAL HPI: I called electrophysiology and they had no openings. Could page 2 [place] [facility] manager secondary on-call Dr. Castro who will see if Dr. Wellington at [facility] did not do the pacer defibrillator. My [...] fibrillation. She has seen Dr. Greenfield the manager secondary. She is to be scheduled for pacer [...] needs diuresis. Dr. Virk (more content not included)...[facility] HospitalIrvvhpdw36-08-9007 NoteHNO ID: [id number] Author: ESTELITA LAMB APRN.TIM Service: Cardiovascular Medicine Author Type: Nurse Practitioner Type: Plan of Care Filed: 07/11/2023 15:22 Note Text: Patient stress test reviewed. Shows no ischemia but low EF. Echo planned for tomorrow. Pending RN RENAL-D as OP >>> Dr. Sams is facilitating discussion on timing of implant. Will follow. Estelita Lamb APRN.PELLETIZER TENDER Cardiology Nurse Practitioner Section of Regional Cardiology [facility] Dept of Cardiovascular Medicine [facility] [place] [address] [address] Office Office Pzyrei Oxaekprd26-95-4217 NoteHNO ID: [id number] Author: REMINGTON CAI MD Service: Hospital Medicine Author Type: Physician Type: Progress Notes Filed: 07/11/2023 14:17 Note Text: DEPARTMENT OF HOSPITAL MEDICINE PROGRESS NOTE SERVICE DATE: 07/11/2023 SERVICE TIME: 1:06 PM Hospital Medicine/Primary Attending: Remington Cai MD NIGHT AND WEEKEND COVERAGE: [place] COVERAGE: Nights: [phone], please page [facility] Hospitalist Night coverage pager [phone]. Reason for Admission: Acute decompensated heart failure [...] beta-lorenzo held Nuclear stress test-see below Basket Case Rover message sent to concerning pacer defibrillator placement [...] fibrillation. She has seen Dr. Greenfield the manager secondary. She is to be scheduled for pacer [...] Acute on chronic systolic (more content not included)...[facility] 06-12-2023 NoteHNO ID: [id number] Author: FLACA GREENFIELD MD Service: ? Author Type: Physician Type: Progress Notes Filed: 06/12/2023 16:02 Note Text: Heart [facility] [place] [facility] SECTION OF CARDIAC PACING and ELECTROPHYSIOLOGY OUTPATIENT VISIT DATE June 12, 2023 OUTPATIENT VISIT TYPE NEW PRIMARY CARE PHYSICIAN: Mandeep Houser [address] [place] [address] REFERRING PHYSICIAN: Santo Oneill MD. HISTORY OF PRESENT ILLNESS: 77-year-old female with history of nonischemic cardiomyopathy, severe LV systolic function, LVEF of 30% despite GDMT, LBBB with QRS of 170 ms, was referred for consideration of RN RENAL-D system implantation for prevention of sudden cardiac [...] on chronic systolic CHF (congestive heart failure) ([facility]) 05/03/2020 Aspiration pneumonia ([facility]) 05/30/2020 Chest pain 05/03/2020 Chest pressure 01/23/2013 Chronic diastolic congestive heart failure ([facility]) 02/14/2021 Clostridium difficile diarrhea 09/28/2020 Complete uterovaginal prolapse Cystocele, midline Essential hypertension 06/14/2020 Homozygous Factor V Leiden mutation ([facility]) 05/03/2020 Hypothyroidism IBS (irritable bowel syndrome) 01/23/2013 [...] 17, 2023 1:31 PM documented in this encounterOhiohealth Southeastern Medical Center12-14-2023 Miscellaneous Notes* Telephone Encounter - Bria Shah MA - 04/26/2023 2:37 PM EST Patient notified of results, verbalizes understanding of instructions. Bria Shah MA * Telephone Encounter - Mandeep Houser DO - 04/26/2023 2:24 PM EST Please inform patient that her mammogram is normal/negative. She will need routine screening mammogram in 1 year. Thanks CELIA Gamez documented in this encounterOhiohealth Southeastern Medical Center12-12-2023 Miscellaneous Notes* Telephone Encounter - Vinita Harman - 04/24/2023 2:06 PM EST Patient is scheduled at on 05/28/[address] Angel Gaxiola. * Telephone Encounter - Mandeep Houser DO - 04/17/2023 4:59 PM EST Patient is supposed to be seen by [facility] Reporter / Cardiology per recommendations by Dr. Oneill. She is asking office if this is scheduled yet? Please clarify Mandeep Houser DO documented in this encounterOhiohealth Southeastern Medical Center11-27-2023 History of Present illness Narrative* Santo Oneill MD - 04/09/2023 5:19 PM EST Images from the original note were not included. Santo Oneill MD Interventional Cardiology [address] [place] [address] Chief Complaint Patient presents with: Established Patient [...] to correct any errors. 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 No fevers or chills. Present the last few weeksoff and on PAST MEDICAL HISTORY Diagnosis Date Acute acalculous cholecystitis 05/30/2020 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 09/22/2020 Acute on chronic systolic CHF (congestive heart failure) ([facility]) 05/03/2020 Aspiration pneumonia ([facility]) 05/30/2020 Chest pain 05/03/2020 Chest pressure 01/23/2013 Chronic diastolic congestive heart failure ([facility]) 02/14/2021 Clostridium difficile diarrhea 09/28/2020 Complete uterovaginal prolapse Cystocele, midline Essential hypertension 06/14/2020 Homozygous Factor V Leiden mutation ([facility]) 05/03/2020 Hypothyroidism IBS (irritable bowel syndrome) 01/23/2013 [...] plan. See patient instructions. Mandeep Houser DO [address] [place] [address] documented in this encounterOhiohealth Southeastern Medical Center08-29-2023 Instructions* Patient Instructions* Mandeep Houser DO - 01/09/2023 1:53 PM EDT Decrease dose of thyroid medication to 88 mcg a day, new rx sent into [facility] Recheck labs in 1 month, these are ordered. Can be done non fasting If front of neck symptoms aren't better, I will order ultrasound. Let me konw documented in this encounterOhiohealth Southeastern Medical Center08-29-2023 Miscellaneous Notes* Telephone Encounter - Sandra Malave [...] and advise. Sandra Wells documented in this encounterOhiohealth Southeastern Medical Center08-17-2023 Miscellaneous Notes* Telephone Encounter - Rupali Nascimento [...] when able. Thank you. documented in this encounterOhiohealth Southeastern Medical Center08-08-2023 Miscellaneous Notes* Telephone Encounter - Alejandrina Barnes LPN - 12/19/2022 8:59 AM EDT Patient notified. Verbalized understanding. * Telephone Encounter - Mandeep Houser DO - 12/19/2022 8:08 AM EDT Please inform patient that her CXR is normal Mandeep Houser DO documented in this encounterOhiohealth Southeastern Medical Center08-03-2023 History of Present illness Narrative* Faye Aguirre [...] 14, 2022 10:38 AM documented in this encounterOhiohealth Southeastern Medical Center06-19-2023 Miscellaneous Notes* Telephone Encounter - Leyla Ferreira RN - 10/30/2022 10:48 AM EDT Addendum completed by Dr. Mata and faxed to [facility] [employer]. * Telephone Encounter - Sincere Berger RN - 10/24/2022 1:25 PM EDT Received fax from [employer] requesting addendum to 08/[address]. [address] Testrakes desk. documented in this encounterOhiohealth Southeastern Medical Center06-04-2023 Miscellaneous Notes* Telephone Encounter - Estelita Pinon [...] care provider or schedule a visit with [facility]. A test is not recommended to return to work/school when meeting the above criteria. Estelita Pinon APRN.CNP documented in this encounterOhiohealth Southeastern Medical Center06-03-2023 History of Present illness Narrative* Shanell Cox [...] plan. Shanell Cox APRN.CNP documented in this encounterOhiohealth Southeastern Medical Center05-31-2023 History of Present illness Narrative* Mandeep Houser [...] on chronic systolic CHF (congestive heart failure) ([facility]) 05/03/2020 Aspiration pneumonia ([facility]) 05/30/2020 Chest pain 05/03/2020 Chest pressure 01/23/2013 Chronic diastolic congestive heart failure ([facility]) 02/14/2021 Clostridium difficile diarrhea 09/28/2020 Complete uterovaginal prolapse Cystocele, midline Essential hypertension 06/14/2020 Homozygous Factor V Leiden mutation ([facility]) 05/03/2020 Hypothyroidism IBS (irritable bowel syndrome) 01/23/2013 [...] See patient instructions. Mandeep Houser DO [address] [place] [address] documented in this encounterOhiohealth Southeastern Medical Center05-11-2023 Miscellaneous Notes* Telephone Encounter - Leyla Ferreira RN - 09/21/2022 2:51 PM EDT Refaxed forms to [employer]. * Telephone Encounter - Rachelle Stout LPN - 09/21/2022 1:38 PM EDT Shana varner called stating that fax sent only came thru as every other page and the whole fax was not received. Please refax paper work to [phone] Rachelle Stout LPN documented in this encounterOhiohealth Southeastern Medical Center05-01-2023 Miscellaneous Notes* Telephone Encounter - Sincere Berger RN - 09/11/2022 11:44 AM EDT Received fax from [employer] for Orthosis order. Forms filled out and signed by Dr. Mata andfaxed back to [place] with office notes. 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 Feels like she could at times. No blood in stool. Symptoms worsening over weeks time PAST MEDICAL HISTORY Diagnosis Date Acute acalculous cholecystitis 05/30/2020 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 09/22/2020 Acute on chronic systolic CHF (congestive heart failure) ([facility]) 05/03/2020 Aspiration pneumonia ([facility]) 05/30/2020 Chest pain 05/03/2020 Chest pressure 01/23/2013 Chronic diastolic congestive heart failure ([facility]) 02/14/2021 Clostridium difficile diarrhea 09/28/2020 Complete uterovaginal prolapse Cystocele, midline Essential hypertension 06/14/2020 Homozygous Factor V Leiden mutation ([facility]) 05/03/2020 Hypothyroidism IBS (irritable bowel syndrome) 01/23/2013 [...] See patient instructions. Mandeep Houser DO [address] [place] [address] documented in this encounterOhiohealth Southeastern Medical Center04-03-2023 History of Present illness Narrative* Santo Oneill MD - 08/14/2022 11:58 AM EDT Images from the original note were not included. Santo Oneill MD Interventional Cardiology [facility] [address], [place] [address] [phone] Chief Complaint Patient presents with: Established Patient [...] on chronic systolic CHF (congestive heart failure) ([facility]) 05/03/2020 Aspiration pneumonia ([facility]) 05/30/2020 Chest pain 05/03/2020 Chest pressure 01/23/2013 Chronic diastolic congestive heart failure ([facility]) 02/14/2021 Clostridium difficile diarrhea 09/28/2020 Complete uterovaginal prolapse Cystocele, midline Essential hypertension 06/14/2020 Homozygous Factor V Leiden mutation ([facility]) 05/03/2020 Hypothyroidism IBS (irritable bowel syndrome) 01/23/2013 [...] INSTRUCTIONS Patient Name: Sandra Schmitz Clinic Number: [id number] Skin prepped and cleansed with alcohol Patch secured to prepped area Monitor Activated Serial #: [id number] Patient Instructed: Prescribed order timeframe Bathing guidelines Usage of event button and diary documentation Return of monitor at the end of prescribed order Call with problems [phone] or [phone]. [phone] Patient expresses a good understanding of instructions Anni Roldan * Santo Oneill MD - 08/14/2022 11:57 AM EDT Images from the original note were not included. Santo Oneill MD Interventional Cardiology [facility] [address], [place] [address] [phone] Chief Complaint Patient presents with: Established Patient [...] to correct any errors. documented in this encounterOhiohealth Southeastern Medical Center03-30-2023 History of Present illness Narrative* Mandeep Houser, - 08/10/2022 11:20 AM EDT CC: Sandra Schmitz is a 77 year old female who presents to the office for OMT HPI: Here for OMT today, has had acute care physician and OMT in the past. Right mid [...] on chronic systolic CHF (congestive heart failure) ([facility]) 05/03/2020 Aspiration pneumonia ([facility]) 05/30/2020 Chest pain 05/03/2020 Chest pressure 01/23/2013 Chronic diastolic congestive heart failure ([facility]) 02/14/2021 Clostridium difficile diarrhea 09/28/2020 Complete uterovaginal prolapse Cystocele, midline Essential hypertension 06/14/2020 Homozygous Factor V Leiden mutation ([facility]) 05/03/2020 Hypothyroidism IBS (irritable bowel syndrome) 01/23/2013 [...] plan. See patient instructions. Mandeep Houser DO [address] [place] [address] documented in this encounterOhiohealth Southeastern Medical Center03-30-2023 History of Present illness Narrative* Mandeep Houser [...] on chronic systolic CHF (congestive heart failure) ([facility]) 05/03/2020 Aspiration pneumonia ([facility]) 05/30/2020 Chest pain 05/03/2020 Chest pressure 01/23/2013 [...] plan. See patient instructions. Mandeep Houser DO [address] [place] [address] documented in this encounterOhiohealth Southeastern Medical Center03-23-2023 History of Present illness Narrative* Linda Juarez [...] 03, 2022 10:33 AM documented in this encounterOhiohealth Southeastern Medical Center03-15-2023 Miscellaneous Notes* Telephone Encounter - Palak Jacobson [...] day Alejandrina Harvey APRN.CNP documented in this encounterOhiohealth Southeastern Medical Center03-14-2023 History of Present illness Narrative* Abraham Ibarra [...] 25, 2022 3:03 PM documented in this encounterOhiohealth Southeastern Medical Center03-10-2023 Instructions* Patient Instructions* Alejandrina Harvey APRN.CNP - [...] your usual activities immediately. documented in this encounterOhiohealth Southeastern Medical Center03-10-2023 History of Present illness Narrative* Alejandrina Harvey [...] on chronic systolic CHF (congestive heart failure) ([facility]) 05/03/2020 Aspiration pneumonia ([facility]) 05/30/2020 Chest pain 05/03/2020 Chest pressure 01/23/2013 [...] 09/07/2020 Laparoscopic cholecystectomy with intraoperative cholangiograms. Dr. Ragsadle Family History FAMILY HISTORY Problem Relation Age [...] V82.81, ICD10: Z13.820 - DXA-AXIAL SKELETON Alejandrina Harevy APRN.PELLETIZER TENDER documented in this encounterOhiohealth Southeastern Medical Center03-07-2023 History of Present illness Narrative* Mandeep Houser, [...] plan. See patient instructions. Mandeep Houser DO [address] [place] [address] documented in this encounterOhiohealth Southeastern Medical Center01-12-2023 Miscellaneous Notes* Telephone Encounter - Griselda Harris [...] concerns. Mandeep Houser DO documented in this encounterOhiohealth Southeastern Medical Center01-03-2023 Miscellaneous Notes* Telephone Encounter - Leyla Ferreira [...] from pharmacy's request. Please send RX to [facility] in [place]. documented in this encounterOhiohealth Southeastern Medical Center12-21-2022 History of Present illness Narrative* Mandeep Houser [...] See patient instructions. Mandeep Houser DO [address] [place] [address] documented in this encounterOhiohealth Southeastern Medical Center12-21-2022 Miscellaneous Notes* Telephone Encounter - Mandeep Houser [...] Please advise the patient. documented in this encounterOhiohealth Southeastern Medical Center11-23-2022 History of Present illness Narrative* Enmanuel Sahu - 04/05/2022 11:02 AM EST POPULATION HEALTH NAVIGATION OUTREACH Action/I RP Outreach: Contacted patient to schedule ROBEL Consult for Chronic pain of right ankle [M25.571, G89.29] and patient requested to call back [phone]. Any agent can assist. Pt identified by name and : YES, via [employer] Outreach Outcome/Action Spoke to patient or caregiver: [...] 05, 2022 11:03 AM documented in this encounterOhiohealth Southeastern Medical Center11-18-2022 History of Present illness Narrative* Santisujit Sahu - 03/31/2022 2:07 PM EST POPULATION HEALTH NAVIGATION OUTREACH Action/I RP Outreach: LVM for Patient to call back and schedule ROBEL Consult for Chronic pain of right ankle [M25.571, G89.29]. [phone]. Any agent can assist. Pt identified by name and : YES, via [employer] Outreach Outcome/Action Unable to reach patient: Left [...] 31, 2022 2:07 PM documented in this encounterOhiohealth Southeastern Medical Center10-31-2022 Miscellaneous Notes* Telephone Encounter - Kelsey Costa LPN - 03/13/2022 9:59 AM EDT Pt. informed, * Telephone Encounter - Alejandrina Harvey APRN.CNP - 03/13/2022 7:45 AM EDT Please let Sandra know that her COVID and flu tests are negative. Alejandrina Harvey APRN.CNP documented in this encounterOhiohealth Southeastern Medical Center10-28-2022 Miscellaneous Notes* Telephone Encounter - Griselda Harris Ma - 03/10/2022 11:08 AM EDT Faxed 03/10/2022 BRANDI Harris Ma * Telephone Encounter - Alejandrina Harvey APRN.CNP - 03/10/2022 10:14 AM EDT Please fax podiatry consult to Dr. Contreras's office. Alejandrina Harvey APRN.CNP documented in this encounterOhiohealth Southeastern Medical Center10-03-2022 History of Present illness Narrative* Santo Oneill MD - 02/13/2022 12:21 PM EDT Images from the original note were not included. Santo Oneill MD Interventional Cardiology [address] [place] [address] Chief Complaint Patient presents with: Follow Up [...] on chronic systolic CHF (congestive heart failure) ([facility]) 05/03/2020 Aspiration pneumonia ([facility]) 05/30/2020 Chest pain 05/03/2020 Chest pressure 01/23/2013 [...] 1 tablet by mouth once daily. 90 [id number] L. acidophilus/L. rhamnosus ([employer]) Take [...] to correct any errors. documented in this encounterOhio[facility]09-09-2022 History of Present illness Narrative* Alejandrina Harvey, MELI.PELLETIZER TENDER - 01/20/2022 10:51 AM EDT Chief Complaint Patient presents with: Follow Up: Review lab work HPI Sandra Schmitz is a 76 year old female who presents here today for Above Complaints. Today: Would like to review her lab results today. Knows that her cholesterol still elevated, but has not tolerated Lipitor or Crestor. 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 4. 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 Thank you, Saqib. MELI Culp.PELLETIZER TENDER documented in this encounterOhiohealth Southeastern Medical Center08-16-2022 Miscellaneous Notes* Telephone Encounter - Anni Herrera [...] you. Anni Herrera LPN documented in this encounterOhiohealth Southeastern Medical Center08-08-2022 Instructions* Patient Instructions* Sincere Perkins PA-C - 12/19/2021 9:33 AM EDT The following instructions are important for you related to your office visit today with the [facility] Surgeons. -Continue omeprazole for 1-2 months [...] you should contact our office immediately @ [phone] and ask to be transferred to the General Surgery department. documented in this encounterOhiohealth Southeastern Medical Center08-08-2022 History of Present illness Narrative* Sincere Perkins PA-C - 12/19/2021 9:15 AM EDT FOLLOW UP VISIT - ENDOSCOPY NAME: Sandra Ricardo [facility] NO.: [id number] DATE OF SERVICE: 12/19/2021 : 1945 REFERRING PHYSICIAN: Mandeep Houser DO Sandra is a patient I am following with Dr. Marshall for history of colon polyps as well as upper GI complaints. Dr. Marshall performed upper and lower endoscopy on 12/05/21 at [facility]. The patient was found to have [...] which included preparing to see the patient, [id number] patient care, completing clinical documentation, obtaining and/or reviewing separately obtained history, counseling and educating the patient/family/caregiver, independently interpretin g results (not separately reported), and communicating results to the patient/family/caregiver. Sincere Perkins PA-C documented in this encounterOhiohealth Southeastern Medical Center07-28-2022 Miscellaneous Notes* Telephone Encounter - Rula Lopez RN - 12/08/2021 11:11 AM EDT Pt. notified. Please send refill for Losartan to [facility]. Thank you. Rula Lopez RN * Telephone Encounter - Rula Lopez RN - 12/08/2021 11:11 AM EDT Images from the original note were not included. Estelita Culp APRN.PELLETIZER TENDER You; Santo Oneill MD 12 minutes ago [...] hears back from someone. documented in this encounterOhiohealth Southeastern Medical Center07-25-2022 History and physical note * Wes Marshall [...] a colonoscopy performed by Dr. Marshall in [place] for 04/04/21, however procedure was cancelled. Patient [...] patient was offered a surgery/procedure at [facility]. I have counseled the patient regarding [...] mail. Sincere Perkins PA-C documented in this encounterOhiohealth Southeastern Medical Center07-19-2022 Miscellaneous Notes* Telephone Encounter - Sincere Perkins [...] upper and lower scope with [facility] in [place] and is on miralax/dulcalax as her prep [...] moved up to 12/05 with [facility] in [place] for upper and lower scopes. LV of [...] 02/20/2022 colon egd ko documented in this encounterOhiohealth Southeastern Medical Center07-19-2022 Miscellaneous Notes* Telephone Encounter - Rula Lopez [...] stomach problems. Please advise. documented in this encounterOhiohealth Southeastern Medical Center06-23-2022 History of Present illness Narrative* Vinita Flores Pss - 11/03/2021 3:26 PM EDT Patient seen by Elisha Perkins on 11/02 for consult. * Dejan Lorenzo - 11/01/2021 11:45 AM EDT Patient due for screening colonoscopy . Patient is not appropriate for open access. Please scheduleoffice consult Dejan Lorenzo documented in this encounterOhiohealth Southeastern Medical Center06-23-2022 History of Present illness Narrative* Sincere Perkins [...] a colonoscopy performed by Dr. Marshall in [place] for 04/04/21, however procedure was cancelled. Patient [...] entered by the nurse and reviewed by ne Nursing Notes: Maritza Contreras LPN 11/02/2021 1:34 [...] patient was offered a surgery/procedure at [facility]. I have counseled the patient regarding [...] mail. Sincere Perkins PA-C documented in this encounterOhiohealth Southeastern Medical Center06-22-2022 Nurse Note* Maritza Contreras LPN - 11/02/2021 [...] 2020 Maritza Contreras LPN documented in this encounterOhiohealth Southeastern Medical Center06-16-2022 Miscellaneous Notes* Telephone Encounter - Estelita Hermosillo LPN - 10/27/2021 10:51 AM EDT I spoke to and informed her of Estelita's response to lab results. Patient voiced understanding. Estelita Hermosillo LPN * Telephone Encounter - Estelita Hermosillo LPN - 10/27/2021 10:50 AM EDT ----- Message from Estelita Culp APRN.PELLETIZER TENDER sent at 10/27/2021 10:39 AM EDT ----- Please call patient and notify her of results. BMP and CBC stable. Thank you! documented in this encounterOhiohealth Southeastern Medical Center06-16-2022 History of Present illness Narrative* RT Dayanna(R) [...] 2021 TIME: 1:36 PM documented in this encounterOhiohealth Southeastern Medical Center06-13-2022 Miscellaneous Notes* Telephone Encounter - Kelsey Shannon RN - 10/24/2021 4:00 PM EDT Patient scheduled for left heart cath, with Dr Oneill on 11/10/21. Instructions reviewed. Questions answered. Patient verbalized understanding. Instructions were as follows: -Arrive to [facility] at time assigned by [facility] quality control lab technician staff in phone call 2-5 PM [...] someone drive you home from your procedure. -quality control lab technician policy is pt not be alone first evening Office phone number provided for questions or concerns. Kelsey Shannon RN * Telephone Encounter - Luzma Tejeda [facility] - 10/24/2021 1:33 PM EDT Schedule C on 11/10/[address] Oneill documented in this encounterOhiohealth Southeastern Medical Center06-13-2022 History of Present illness Narrative* Kelsey Costa [...] Dr Ragsdale after CT documented in this encounterOhiohealth Southeastern Medical Center06-08-2022 Instructions* Patient Instructions* Alejandrina Harvey APRN.CNP - 10/19/2021 12:28 PM EDT Schedule your CT scan of your abdomen and pelvis. I'll get back with you in regards to the clearance for you colonoscopy. documented in this encounterOhiohealth Southeastern Medical Center06-08-2022 History of Present illness Narrative* Alejandrina Harvey [...] PROCEDURE) Alejandrina Harvey APRN.TIM documented in this encounterOhiohealth Southeastern Medical Center05-11-2022 History of Present illness Narrative* Mandeep Houser [...] on chronic systolic CHF (congestive heart failure) ([facility]) 05/03/2020 Aspiration pneumonia ([facility]) 05/30/2020 Chest pain 05/03/2020 Chest pressure 01/23/2013 Chronic diastolic congestive heart failure ([facility]) 02/14/2021 Clostridium difficile diarrhea 09/28/2020 Complete uterovaginal prolapse Cystocele, midline Essential hypertension 06/14/2020 Homozygous Factor V Leiden mutation ([facility]) 05/03/2020 Hypothyroidism IBS (irritable bowel syndrome) 01/23/2013 [...] plan. See patient instructions. Mandeep Houser DO [address] [place] [address] documented in this encounterOhiohealth Southeastern Medical Center05-09-2022 Miscellaneous Notes* Telephone Encounter - Griselda Harris [...] Provider: ALEJANDRINA HARVEY APRN.CNP documented in this encounterOhiohealth Southeastern Medical Center04-22-2022 Miscellaneous Notes* Telephone Encounter - Griselda Harris [...] appointment. Alejandrina Harvey APRN.CNP documented in this encounterOhiohealth Southeastern Medical Center04-21-2022 Instructions* Patient Instructions* Alejandrina Harvey APRN.CNP - 09/01/2021 3:57 PM EDT Have your xrays completed. I typically have results in 24 hours or less. Have your lab work completed, fasting, when able. We typically have results in 1-2 days. documented in this encounter[address]21-2022 History of Present illness Narrative* Alejandrina Yasir, LEASING ASSISTANT.PELLETIZER TENDER - 09/01/2021 3:40 PM EDT Patient presents [...] on chronic systolic CHF (congestive heart failure) ([facility]) 05/03/2020 Aspiration pneumonia ([facility]) 05/30/2020 Chest pain 05/03/2020 Chest pressure 01/23/2013 Chronic diastolic congestive heart failure (HCC) 02/14/2021 Clostridium difficile diarrhea 09/28/2020 Complete uterovaginal prolapse Cystocele, midline Essential hypertension 06/14/2020 Homozygous Factor V Leiden mutation ([facility]) 05/03/2020 Hypothyroidism IBS (irritable bowel syndrome) 01/23/2013 [...] ICD10: R79.9 - HGB A1C Alejandrina Harvey APRN.PELLETIZER TENDER To ER if develops chest pain, shortness of breath, or severe worsening of symptoms. Discussed risks, benefits, alternatives, and potential side effects of medications. Patient expressed understanding and agreed with the plan. Alejandrina Harvey APRN.PELLETIZER TENDER [address] [place] [address] documented in this encounterOhiohealth Southeastern Medical Center04-18-2022 Miscellaneous Notes* Telephone Encounter - Griselda Harris Ma - 08/29/2021 1:42 PM EDT Pt scheduled with [facility] to [facility] care Griselda Harris Ma * Telephone Encounter [...] if okay to schedule. documented in this encounterOhiohealth Southeastern Medical Center04-12-2022 History of Present illness Narrative* Farzana Rodriguez [...] 23, 2021 10:23 AM documented in this encounterOhiohealth Southeastern Medical Center04-04-2022 Miscellaneous Notes* Letter - Mammography Coordinator - 08/15/2021 1:00 PM EDT August 15, 2021 PID: [id number] Sandra Schmitz [address] [place] [address] Dear Ms. Schmitz, We are pleased to [...] report will be [facility] as part of your permanent medical record and are available for your continuing care. Thank you for allowing us to help in meeting your health care needs. Sincerely, Dr. Zendejas Interpreting Radiologist [facility] (Normal over 40) documented in this encounterOhiohealth Southeastern Medical Center04-04-2022 History of Present illness Narrative* Polina Castaneda, [...] 15, 2021 9:50 AM documented in this encounterOhiohealth Southeastern Medical Center03-29-2022 History of Present illness Narrative* Estelita Maradiaga, [...] treatment included: Therapeutic exercise, Manual therapy, Self- prison management and Patient/Family/Caregiver Education. Pt. Reports reduced [...] 07/11/21 through 09/05/21 Goals updated on 08/09/2021. [place] in home exercise program. -- PARTIALLY MET [...] the elbow felt somewhat looser after the [facility] last visit but then returned back to [...] and function . Patient education as noted. Self-Nursing Home Management: 1: *advised pt. to avoid carrying [...] 30 Estelita Maradiaga PT documented in this encounterOhiohealth Southeastern Medical Center08-25-2021 History of Present illness Narrative* Nely Carrasquillo [...] 05, 2021 10:18 AM documented in this encounterOhiohealth Southeastern Medical Center03-22-2021 History of Present illness Narrative* Luzma VegaRt)Marino [...] 02, 2020 12:14 PM documented in this encounterOhiohealth Southeastern Medical Center01-17-2021 History of Past illness Narrative* Problem Noted Date Resolved Date Aspiration pneumonia 05/30/2020 09/22/2020 Post-operative state 05/24/2020 06/14/2020 Shortness of breath 05/03/2020 06/14/2020 Chest pain 05/03/2020 06/14/2020 documented as of this encounter (statuses as of 08/09/2021) [address]17-2021 History of Past illness Narrative* Problem Noted Date Resolved Date Aspiration pneumonia 05/30/2020 09/22/2020 Post-operative state 05/24/2020 06/14/2020 Shortness of breath 05/03/2020 06/14/2020 Chest pain 05/03/2020 06/14/2020 documented as of this encounter (statuses as of 08/16/2021) [address]17-2021 History of Past illness Narrative* Problem Noted Date Resolved Date Aspiration pneumonia 05/30/2020 09/22/2020 Post-operative state 05/24/2020 06/14/2020 Shortness of breath 05/03/2020 06/14/2020 Chest pain 05/03/2020 06/14/2020 documented as of this encounter (statuses as of 08/17/2021) [address]17-2021 History of Past illness Narrative* Problem Noted Date Resolved Date Aspiration pneumonia 05/30/2020 09/22/2020 Post-operative state 05/24/2020 06/14/2020 Shortness of breath 05/03/2020 06/14/2020 Chest pain 05/03/2020 06/14/2020 documented as of this encounter (statuses as of 08/23/2021) [address]17-2021 History of Past illness Narrative* Problem Noted Date Resolved Date Aspiration pneumonia 05/30/2020 09/22/2020 Post-operative state 05/24/2020 06/14/2020 Shortness of breath 05/03/2020 06/14/2020 Chest pain 05/03/2020 06/14/2020 documented as of this encounter (statuses as of 09/02/2021) [address]17-2021 History of Past illness Narrative* Problem Noted Date Resolved Date Aspiration pneumonia 05/30/2020 09/22/2020 Post-operative state 05/24/2020 06/14/2020 Shortness of breath 05/03/2020 06/14/2020 Chest pain 05/03/2020 06/14/2020 documented as of this encounter (statuses as of 09/07/2021) [address]17-2021 History of Past illness Narrative* Problem Noted Date Resolved Date Aspiration pneumonia 05/30/2020 09/22/2020 Post-operative state 05/24/2020 06/14/2020 Shortness of breath 05/03/2020 06/14/2020 Chest pain 05/03/2020 06/14/2020 documented as of this encounter (statuses as of 09/19/2021) [address]17-2021 History of Past illness Narrative* Problem Noted Date Resolved Date Aspiration pneumonia 05/30/2020 09/22/2020 Post-operative state 05/24/2020 06/14/2020 Shortness of breath 05/03/2020 06/14/2020 Chest pain 05/03/2020 06/14/2020 documented as of this encounter (statuses as of 09/21/2021) [address]17-2021 History of Past illness Narrative* Problem Noted Date Resolved Date Aspiration pneumonia 05/30/2020 09/22/2020 Post-operative state 05/24/2020 06/14/2020 Shortness of breath 05/03/2020 06/14/2020 Chest pain 05/03/2020 06/14/2020 documented as of this encounter (statuses as of 09/29/2021) [address]17-2021 History of Past illness Narrative* Problem Noted Date Resolved Date Aspiration pneumonia 05/30/2020 09/22/2020 Post-operative state 05/24/2020 06/14/2020 Shortness of breath 05/03/2020 06/14/2020 Chest pain 05/03/2020 06/14/2020 documented as of this encounter (statuses as of 10/20/2021) [address]17-2021 History of Past illness Narrative* Problem Noted Date Resolved Date Aspiration pneumonia 05/30/2020 09/22/2020 Post-operative state 05/24/2020 06/14/2020 Shortness of breath 05/03/2020 06/14/2020 Chest pain 05/03/2020 06/14/2020 documented as of this encounter (statuses as of 10/24/2021) [address]17-2021 History of Past illness Narrative* Problem Noted Date Resolved Date Aspiration pneumonia 05/30/2020 09/22/2020 Post-operative state 05/24/2020 06/14/2020 Shortness of breath 05/03/2020 06/14/2020 Chest pain 05/03/2020 06/14/2020 documented as of this encounter (statuses as of 10/27/2021) [address]17-2021 History of Past illness Narrative* Problem Noted Date Resolved Date Aspiration pneumonia 05/30/2020 09/22/2020 Post-operative state 05/24/2020 06/14/2020 Shortness of breath 05/03/2020 06/14/2020 Chest pain 05/03/2020 06/14/2020 documented as of this encounter (statuses as of 10/28/2021) [address]17-2021 History of Past illness Narrative* Problem Noted Date Resolved Date Aspiration pneumonia 05/30/2020 09/22/2020 Post-operative state 05/24/2020 06/14/2020 Shortness of breath 05/03/2020 06/14/2020 Chest pain 05/03/2020 06/14/2020 documented as of this encounter (statuses as of 11/03/2021) [address]17-2021 History of Past illness Narrative* Problem Noted Date Resolved Date Aspiration pneumonia 05/30/2020 09/22/2020 Post-operative state 05/24/2020 06/14/2020 Shortness of breath 05/03/2020 06/14/2020 Chest pain 05/03/2020 06/14/2020 documented as of this encounter (statuses as of 11/03/2021) [address]17-2021 History of Past illness Narrative* Problem Noted Date Resolved Date Aspiration pneumonia 05/30/2020 09/22/2020 Post-operative state 05/24/2020 06/14/2020 Shortness of breath 05/03/2020 06/14/2020 Chest pain 05/03/2020 06/14/2020 documented as of this encounter (statuses as of 11/10/2021) [address]17-2021 History of Past illness Narrative* Problem Noted Date Resolved Date Aspiration pneumonia 05/30/2020 09/22/2020 Post-operative state 05/24/2020 06/14/2020 Shortness of breath 05/03/2020 06/14/2020 Chest pain 05/03/2020 06/14/2020 documented as of this encounter (statuses as of 11/29/2021) [address]17-2021 History of Past illness Narrative* Problem Noted Date Resolved Date Aspiration pneumonia 05/30/2020 09/22/2020 Post-operative state 05/24/2020 06/14/2020 Shortness of breath 05/03/2020 06/14/2020 Chest pain 05/03/2020 06/14/2020 documented as of this encounter (statuses as of 12/06/2021) [address]17-2021 History of Past illness Narrative* Problem Noted Date Resolved Date Aspiration pneumonia 05/30/2020 09/22/2020 Post-operative state 05/24/2020 06/14/2020 Shortness of breath 05/03/2020 06/14/2020 Chest pain 05/03/2020 06/14/2020 documented as of this encounter (statuses as of 12/08/2021) [address]17-2021 History of Past illness Narrative* Problem Noted Date Resolved Date Aspiration pneumonia 05/30/2020 09/22/2020 Post-operative state 05/24/2020 06/14/2020 Shortness of breath 05/03/2020 06/14/2020 Chest pain 05/03/2020 06/14/2020 documented as of this encounter (statuses as of 12/27/2021) [address]17-2021 History of Past illness Narrative* Problem Noted Date Resolved Date Aspiration pneumonia 05/30/2020 09/22/2020 Post-operative state 05/24/2020 06/14/2020 Shortness of breath 05/03/2020 06/14/2020 Chest pain 05/03/2020 06/14/2020 documented as of this encounter (statuses as of 12/27/2021) [address]17-2021 History of Past illness Narrative* Problem Noted Date Resolved Date Aspiration pneumonia 05/30/2020 09/22/2020 Post-operative state 05/24/2020 06/14/2020 Shortness of breath 05/03/2020 06/14/2020 Chest pain 05/03/2020 06/14/2020 documented as of this encounter (statuses as of 01/19/2022) [address]17-2021 History of Past illness Narrative* Problem Noted Date Resolved Date Aspiration pneumonia 05/30/2020 09/22/2020 Post-operative state 05/24/2020 06/14/2020 Shortness of breath 05/03/2020 06/14/2020 Chest pain 05/03/2020 06/14/2020 documented as of this encounter (statuses as of 01/19/2022) [address]17-2021 History of Past illness Narrative* Problem Noted Date Resolved Date Aspiration pneumonia 05/30/2020 09/22/2020 Post-operative state 05/24/2020 06/14/2020 Shortness of breath 05/03/2020 06/14/2020 Chest pain 05/03/2020 06/14/2020 documented as of this encounter (statuses as of 01/20/2022) [address]17-2021 History of Past illness Narrative* Problem Noted Date Resolved Date Aspiration pneumonia 05/30/2020 09/22/2020 Post-operative state 05/24/2020 06/14/2020 Shortness of breath 05/03/2020 06/14/2020 Chest pain 05/03/2020 06/14/2020 documented as of this encounter (statuses as of 02/13/2022) [address]17-2021 History of Past illness Narrative* Problem Noted Date Resolved Date Aspiration pneumonia 05/30/2020 09/22/2020 Post-operative state 05/24/2020 06/14/2020 Shortness of breath 05/03/2020 06/14/2020 Chest pain 05/03/2020 06/14/2020 documented as of this encounter (statuses as of 03/10/2022) [address]17-2021 History of Past illness Narrative* Problem Noted Date Resolved Date Aspiration pneumonia 05/30/2020 09/22/2020 Post-operative state 05/24/2020 06/14/2020 Shortness of breath 05/03/2020 06/14/2020 Chest pain 05/03/2020 06/14/2020 documented as of this encounter (statuses as of 03/13/2022) [address]17-2021 History of Past illness Narrative* Problem Noted Date Resolved Date Aspiration pneumonia 05/30/2020 09/22/2020 Post-operative state 05/24/2020 06/14/2020 Shortness of breath 05/03/2020 06/14/2020 Chest pain 05/03/2020 06/14/2020 documented as of this encounter (statuses as of 03/31/2022) [address]17-2021 History of Past illness Narrative* Problem Noted Date Resolved Date Aspiration pneumonia 05/30/2020 09/22/2020 Post-operative state 05/24/2020 06/14/2020 Shortness of breath 05/03/2020 06/14/2020 Chest pain 05/03/2020 06/14/2020 documented as of this encounter (statuses as of 04/05/2022) [facility] Narrative* Problem Noted Date Resolved Date Aspiration pneumonia 05/30/2020 09/22/2020 Post-operative state 05/24/2020 06/14/2020 Shortness of breath 05/03/2020 06/14/2020 Chest pain 05/03/2020 06/14/2020 documented as of this encounter (statuses as of 05/03/2022) [facility] Narrative* Problem Noted Date Resolved Date Aspiration pneumonia 05/30/2020 09/22/2020 Post-operative state 05/24/2020 06/14/2020 Shortness of breath 05/03/2020 06/14/2020 Chest pain 05/03/2020 06/14/2020 documented as of this encounter (statuses as of 05/18/2022) [address]17-2021 History of Past illness Narrative* Problem Noted Date Resolved Date Aspiration pneumonia 05/30/2020 09/22/2020 Post-operative state 05/24/2020 06/14/2020 Shortness of breath 05/03/2020 06/14/2020 Chest pain 05/03/2020 06/14/2020 documented as of this encounter (statuses as of 07/12/2022) [facility] Narrative* Problem Noted Date Resolved Date Aspiration pneumonia 05/30/2020 09/22/2020 Post-operative state 05/24/2020 06/14/2020 Shortness of breath 05/03/2020 06/14/2020 Chest pain 05/03/2020 06/14/2020 documented as of this encounter (statuses as of 07/18/2022) [facility] Narrative* Problem Noted Date Resolved Date Aspiration pneumonia 05/30/2020 09/22/2020 Post-operative state 05/24/2020 06/14/2020 Shortness of breath 05/03/2020 06/14/2020 Chest pain 05/03/2020 06/14/2020 documented as of this encounter (statuses as of 07/25/2022) [address]17-2021 History of Past illness Narrative* Problem Noted Date Resolved Date Aspiration pneumonia 05/30/2020 09/22/2020 Post-operative state 05/24/2020 06/14/2020 Shortness of breath 05/03/2020 06/14/2020 Chest pain 05/03/2020 06/14/2020 documented as of this encounter (statuses as of 07/27/2022) [address]17-2021 History of Past illness Narrative* Problem Noted Date Resolved Date Aspiration pneumonia 05/30/2020 09/22/2020 Post-operative state 05/24/2020 06/14/2020 Shortness of breath 05/03/2020 06/14/2020 Chest pain 05/03/2020 06/14/2020 documented as of this encounter (statuses as of 08/03/2022) [place] [address]-17-2021 History of Past illness Narrative* Problem Noted Date Resolved Date Aspiration pneumonia 05/30/2020 09/22/2020 Post-operative state 05/24/2020 06/14/2020 Shortness of breath 05/03/2020 06/14/2020 Chest pain 05/03/2020 06/14/2020 documented as of this encounter (statuses as of 08/10/2022) [address]17-2021 History of Past illness Narrative* Problem Noted Date Resolved Date Aspiration pneumonia 05/30/2020 09/22/2020 Post-operative state 05/24/2020 06/14/2020 Shortness of breath 05/03/2020 06/14/2020 Chest pain 05/03/2020 06/14/2020 documented as of this encounter (statuses as of 08/10/2022) [address]17-2021 History of Past illness Narrative* Problem Noted Date Resolved Date Aspiration pneumonia 05/30/2020 09/22/2020 Post-operative state 05/24/2020 06/14/2020 Shortness of breath 05/03/2020 06/14/2020 Chest pain 05/03/2020 06/14/2020 documented as of this encounter (statuses as of 08/14/2022) [facility]01-17-2021 History of Past illness Narrative* Problem Noted Date Resolved Date Aspiration pneumonia 05/30/2020 09/22/2020 Post-operative state 05/24/2020 06/14/2020 Shortness of breath 05/03/2020 06/14/2020 Chest pain 05/03/2020 06/14/2020 documented as of this encounter (statuses as of 08/25/2022) [address]17-2021 History of Past illness Narrative* Problem Noted Date Resolved Date Aspiration pneumonia 05/30/2020 09/22/2020 Post-operative state 05/24/2020 06/14/2020 Shortness of breath 05/03/2020 06/14/2020 Chest pain 05/03/2020 06/14/2020 documented as of this encounter (statuses as of 09/11/2022) [facility]17-2021 History of Past illness Narrative* Problem Noted Date Resolved Date Aspiration pneumonia 05/30/2020 09/22/2020 Post-operative state 05/24/2020 06/14/2020 Shortness of breath 05/03/2020 06/14/2020 Chest pain 05/03/2020 06/14/2020 documented as of this encounter (statuses as of 09/22/2022) [address]17-2021 History of Past illness Narrative* Problem Noted Date Resolved Date Aspiration pneumonia 05/30/2020 09/22/2020 Post-operative state 05/24/2020 06/14/2020 Shortness of breath 05/03/2020 06/14/2020 Chest pain 05/03/2020 06/14/2020 documented as of this encounter (statuses as of 10/12/2022) [facility]17-2021 History of Past illness Narrative* Problem Noted Date Resolved Date Aspiration pneumonia 05/30/2020 09/22/2020 Post-operative state 05/24/2020 06/14/2020 Shortness of breath 05/03/2020 06/14/2020 Chest pain 05/03/2020 06/14/2020 documented as of this encounter (statuses as of 10/14/2022) [facility]17-2021 History of Past illness Narrative* Problem Noted Date Resolved Date Aspiration pneumonia 05/30/2020 09/22/2020 Post-operative state 05/24/2020 06/14/2020 Shortness of breath 05/03/2020 06/14/2020 Chest pain 05/03/2020 06/14/2020 documented as of this encounter (statuses as of 10/15/2022) [facility]2021 History of Past illness Narrative* Problem Noted Date Resolved Date Aspiration pneumonia 05/30/2020 09/22/2020 Post-operative state 05/24/2020 06/14/2020 Shortness of breath 05/03/2020 06/14/2020 Chest pain 05/03/2020 06/14/2020 documented as of this encounter (statuses as of 10/30/2022) [facility]17-2021 History of Past illness Narrative* Problem Noted Date Diagnosed Date Resolved Date Aspiration pneumonia 05/30/2020 021 Post-operative state 05/24/2020 021 Shortness of breath 05/03/2020 06/14/19 21 Chest pain 05/03/2020 06/14/2020 documented as of this encounter (statuses as of 12/19/2022) [facility]17-2021 History of Past illness Narrative* Problem Noted Date Diagnosed Date Resolved Date Aspiration pneumonia 05/30/2020 021 Post-operative state 05/24/2020 021 Shortness of breath 05/03/2020 06/14/19 21 Chest pain 05/03/2020 06/14/2020 documented as of this encounter (statuses as of 01/10/2023) [address]17-2021 History of Past illness Narrative* Problem Noted Date Diagnosed Date Resolved Date Aspiration pneumonia 05/30/2020 021 Post-operative state 05/24/2020 021 Shortness of breath 05/03/2020 06/14/19 21 Chest pain 05/03/2020 06/14/2020 documented as of this encounter (statuses as of 01/10/2023) [facility]17-2021 History of Past illness Narrative* Problem Noted Date Diagnosed Date Resolved Date Aspiration pneumonia 05/30/2020 021 Post-operative state 05/24/2020 021 Shortness of breath 05/03/2020 06/14/19 21 Chest pain 05/03/2020 06/14/2020 documented as of this encounter (statuses as of 01/12/2023) [facility]17[facility]2021 History of Past illness Narrative* Problem Noted Date Diagnosed Date Resolved Date Aspiration pneumonia 05/30/2020 021 Post-operative state 05/24/2020 021 Shortness of breath 05/03/2020 06/14/19 21 Chest pain 05/03/2020 06/14/2020 documented as of this encounter (statuses as of 02/21/2023) [facility]17[facility]2021 History of Past illness Narrative* Problem Noted Date Diagnosed Date Resolved Date Aspiration pneumonia 05/30/2020 021 Post-operative state 05/24/2020 021 Shortness of breath 05/03/2020 06/14/19 21 Chest pain 05/03/2020 06/14/2020 documented as of this encounter (statuses as of 03/18/2023) [facility]17[facility]2021 History of Past illness Narrative* Problem Noted Date Diagnosed Date Resolved Date Aspiration pneumonia 05/30/2020 021 Post-operative state 05/24/2020 021 Shortness of breath 05/03/2020 06/14/19 21 Chest pain 05/03/2020 06/14/2020 documented as of this encounter (statuses as of 03/18/2023) [facility]2021 History of Past illness Narrative* Problem Noted Date Diagnosed Date Resolved Date Aspiration pneumonia 05/30/2020 021 Post-operative state 05/24/2020 021 Shortness of breath 05/03/2020 06/14/19 21 Chest pain 05/03/2020 06/14/2020 documented as of this encounter (statuses as of 03/18/2023) [facility]2021 History of Past illness Narrative* Problem Noted Date Diagnosed Date Resolved Date Aspiration pneumonia 05/30/2020 021 Post-operative state 05/24/2020 021 Shortness of breath 05/03/2020 06/14/19 21 Chest pain 05/03/2020 06/14/2020 documented as of this encounter (statuses as of 03/18/2023) [facility]2021 History of Past illness Narrative* Problem Noted Date Diagnosed Date Resolved Date Aspiration pneumonia 05/30/2020 021 Post-operative state 05/24/2020 021 Shortness of breath 05/03/2020 06/14/19 21 Chest pain 05/03/2020 06/14/2020 documented as of this encounter (statuses as of 03/20/2023) [facility]17[facility]2021 History of Past illness Narrative* Problem Noted Date Diagnosed Date Resolved Date Aspiration pneumonia 05/30/2020 021 Post-operative state 05/24/2020 021 Shortness of breath 05/03/2020 06/14/19 21 Chest pain 05/03/2020 06/14/2020 documented as of this encounter (statuses as of 04/10/2023) [facility]17[facility]2021 History of Past illness Narrative* Problem Noted Date Diagnosed Date Resolved Date Aspiration pneumonia 05/30/2020 021 Post-operative state 05/24/2020 021 Shortness of breath 05/03/2020 06/14/19 21 Chest pain 05/03/2020 06/14/2020 documented as of this encounter (statuses as of 04/25/2023) [facility]17[facility]2021 History of Past illness Narrative* Problem Noted Date Diagnosed Date Resolved Date Aspiration pneumonia 05/30/2020 021 Post-operative state 05/24/2020 021 Shortness of breath 05/03/2020 06/14/19 21 Chest pain 05/03/2020 06/14/2020 documented as of this encounter (statuses as of 04/27/2023) [facility]17[facility]2021 History of Past illness Narrative* Problem Noted Date Diagnosed Date Resolved Date Aspiration pneumonia 05/30/2020 021 Post-operative state 05/24/2020 021 Shortness of breath 05/03/2020 06/14/19 21 Chest pain 05/03/2020 06/14/2020 documented as of this encounter (statuses as of 07/13/2023) [facility]17[facility]2021 History of Past illness Narrative* Problem Noted Date Diagnosed Date Resolved Date Aspiration pneumonia 05/30/2020 021 Post-operative state 05/24/2020 021 Shortness of breath 05/03/2020 06/14/19 21 Chest pain 05/03/2020 06/14/2020 documented as of this encounter (statuses as of 07/20/2023) [facility]2021 History of Past illness Narrative* Problem Noted Date Diagnosed Date Resolved Date Aspiration pneumonia 05/30/2020 021 Post-operative state 05/24/2020 021 Shortness of breath 05/03/2020 06/14/19 21 Chest pain 05/03/2020 06/14/2020 documented as of this encounter (statuses as of 07/25/2023) [facility]2021 History of Past illness Narrative* Problem Noted Date Diagnosed Date Resolved Date Aspiration pneumonia 05/30/2020 021 Post-operative state 05/24/2020 021 Shortness of breath 05/03/2020 06/14/19 21 Chest pain 05/03/2020 06/14/2020 documented as of this encounter (statuses as of 07/25/2023) [address]17-2021 History of Past illness Narrative* Problem Noted Date Diagnosed Date Resolved Date Aspiration pneumonia 05/30/2020 021 Post-operative state 05/24/2020 021 Shortness of breath 05/03/2020 06/14/19 21 Chest pain 05/03/2020 06/14/2020 documented as of this encounter (statuses as of 07/26/2023) [address]17-2021 History of Past illness Narrative* Problem Noted Date Diagnosed Date Resolved Date Aspiration pneumonia 05/30/2020 021 Post-operative state 05/24/2020 021 Shortness of breath 05/03/2020 06/14/19 21 Chest pain 05/03/2020 06/14/2020 documented as of this encounter (statuses as of 07/28/2023) [facility]2021 History of Past illness Narrative* Problem Noted Date Diagnosed Date Resolved Date Aspiration pneumonia 05/30/2020 021 Post-operative state 05/24/2020 021 Shortness of breath 05/03/2020 06/14/19 21 Chest pain 05/03/2020 06/14/2020 documented as of this encounter (statuses as of 08/06/2023) [facility]17-2021 History of Past illness Narrative* Problem Noted Date Diagnosed Date Resolved Date Aspiration pneumonia 05/30/2020 021 Post-operative state 05/24/2020 021 Shortness of breath 05/03/2020 06/14/19 21 Chest pain 05/03/2020 06/14/2020 documented as of this encounter (statuses as of 08/07/2023) [facility]17[facility]2021 History of Past illness Narrative* Problem Noted Date Diagnosed Date Resolved Date Aspiration pneumonia 05/30/2020 021 Post-operative state 05/24/2020 021 Shortness of breath 05/03/2020 06/14/19 21 Chest pain 05/03/2020 06/14/2020 documented as of this encounter (statuses as of 08/08/2023) [address]17-2021 History of Past illness Narrative* Problem Noted Date Diagnosed Date Resolved Date Aspiration pneumonia 05/30/2020 021 Post-operative state 05/24/2020 021 Shortness of breath 05/03/2020 06/14/19 21 Chest pain 05/03/2020 06/14/2020 documented as of this encounter (statuses as of 08/23/2023) [facility]17-2021 History of Past illness Narrative* Problem Noted Date Diagnosed Date Resolved Date Aspiration pneumonia 05/30/2020 021 Post-operative state 05/24/2020 021 Shortness of breath 05/03/2020 06/14/19 21 Chest pain 05/03/2020 06/14/2020 documented as of this encounter (statuses as of 08/24/2023) [facility]01[facility]17-2021 History of Past illness Narrative* Problem Noted Date Diagnosed Date Resolved Date Aspiration pneumonia 05/30/2020 021 Post-operative state 05/24/2020 021 Shortness of breath 05/03/2020 06/14/19 21 Chest pain 05/03/2020 06/14/2020 documented as of this encounter (statuses as of 08/28/2023) [facility]12[facility] History of Present illness Narrative* [facility] [...] STATUS: Discontinued PROCEDURE TYPE: NM Stress: 13.0mCi [id number] was administered IV for Rest [facility] at 1307 by [facility]. 35.8 mCi [id number] was administered IV for Stress Imaging at [...] 1:10 PM PAGER/CONTACT #: [facility]* Diagnosis Left shoulder pain, unspecified chronicity Lateral epicondylitis of left elbow Lateral epicondylitis of elbow [facility] Diagnosis Encounter for screening mammogram for breast cancer [facility] Diagnosis Chronic left shoulder pain- Primary [...] blood chemistry, unspecified documented in this encounter [facility] note* Diagnosis Hypothyroidism, unspecified type- Primary documented in this encounter [facility] note* Diagnosis Rib pain- Primary Chest pain, unspecified Somatic dysfunction of head region Somatic dysfunction of spine, cervical Nonallopathic lesion of cervical region, not elsewhere classified Somatic dysfunction of rib Somatic dysfunction of spine, thoracic Nonallopathic lesion of thoracic region, not elsewhere classified Neck pain Cervicalgia documented in this encounter [facility] note* Diagnosis Diverticulitis- Primary Diverticulitis of colon (without mention of hemorrhage) RLQ abdominal pain Abdominal pain, right lower quadrant Lower abdominal pain Abdominal pain, other specified site documented in this encounter [facility] note* Diagnosis Diverticulitis Diverticulitis of colon (without mention of hemorrhage) RLQ abdominal pain Abdominal pain, right lower quadrant Lower abdominal pain Abdominal pain, other specified site Stable angina (HCC) Other and unspecified angina pectoris Cardiomyopathy, unspecified type (HCC) Dyspnea on exertion Other dyspnea and respiratory abnormality documented in this encounter [facility] note* Diagnosis Generalized abdominal pain- Primary Abdominal [...] and respiratory abnormality documented in this encounter [facility] note* Diagnosis Chronic systolic CHF (congestive heart failure) (HCC)- Primary Chronic systolic heart failure documented in this encounter [facility] note* Diagnosis Abdominal bloating Flatulence, eructation, and gas pain Belching Flatulence, eructation, and gas pain Abdominal pain, unspecified abdominal location documented in this encounter [facility] note* Diagnosis Diverticulosis- Primary Diverticulosis of colon (without mention of hemorrhage) History of Clostridium difficile colitis Personal history of other diseases of digestive system Abdominal bloating Flatulence, eructation, and gas pain documented in this encounter [facility] note* Diagnosis Hypothyroidism, unspecified type documented in this encounter [facility] note* Diagnosis Abdominal bloating- Primary Flatulence, eructation, and gas pain Belching Flatulence, eructation, and gas pain Abdominal pain, unspecified abdominal location [facility] Routine physical examination- Primary Routine general medical examination at a health care facility Primary hypertension Unspecified essential hypertension Mixed hyperlipidemia 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) Vitamin D deficiency Unspecified vitamin D deficiency Hypothyroidism, unspecified type [facility] Diagnosis Cardiomegaly- Primary Primary hypertension Unspecified essential hypertension Chronic diastolic congestive heart failure (HCC) Chronic diastolic heart failure Palpitations Acute on chronic systolic CHF (congestive heart failure) (HCC) Acute on chronic systolic heart failure [facility] Diagnosis Rib pain on right side- Primary Chest pain, unspecified Somatic dysfunction of spine, cervical Nonallopathic lesion of cervical region, not elsewhere classified Somatic dysfunction of rib Somatic dysfunction of spine, thoracic Nonallopathic lesion of thoracic region, not elsewhere classified [facility] Diagnosis Chronic right-sided thoracic back pain- Primary Somatic dysfunction of spine, cervical Nonallopathic lesion of cervical region, not elsewhere classified Somatic dysfunction of spine, thoracic Nonallopathic lesion of thoracic region, not elsewhere classified Somatic dysfunction of rib Rib pain on right side Chest pain, unspecified [facility] Diagnosis Hypothyroidism, unspecified type- Primary [...] screening for osteoporosis [facility]* Diagnosis Hypothyroidism, unspecified type [facility]* Diagnosis Chronic bilateral thoracic back [...] Palpitations Mixed hyperlipidemia [facility]* Diagnosis Dysuria- Primary Urticaria Urticaria, [...] Palpitations Mixed hyperlipidemia [facility] Diagnosis Primary hypertension- Primary Unspecified essential hypertension Palpitations Mixed hyperlipidemia [facility] Diagnosis Chronic neck pain- Primary Cervicalgia Abdominal distension (gaseous) Flatulence, eructation, and gas pain Nausea Nausea alone RUQ abdominal pain Abdominal pain, right upper quadrant Somatic dysfunction of spine, cervical Nonallopathic lesion of cervical region, not elsewhere classified Somatic dysfunction of rib Somatic dysfunction of head region [facility] Diagnosis Chronic bilateral thoracic back pain- Primary Somatic dysfunction of spine, cervical Nonallopathic lesion of cervical region, not elsewhere classified Somatic dysfunction of rib Somatic dysfunction of head region Chronic neck pain Cervicalgia Somatic dysfunction of spine, thoracic Nonallopathic lesion of thoracic region, not elsewhere classified [facility] Diagnosis Acute cough- Primary Sore throat Acute pharyngitis [facility] Diagnosis Primary hypertension Unspecified essential hypertension [facility]* Diagnosis Hypothyroidism, unspecified type- Primary Somatic dysfunction of spine, cervical Nonallopathic lesion of cervical region, not elsewhere classified Somatic dysfunction of rib Somatic dysfunction of head region Chronic bilateral thoracic back pain Chronic neck pain Cervicalgia Neck fullness Swelling, mass, or lump in head and neck [facility]* Diagnosis Hypothyroidism, unspecified type [facility]* Diagnosis Screening for osteoporosis Special screening for osteoporosis Asymptomatic menopause [facility]* Diagnosis SOB (shortness of breath) Shortness of breath [facility] Diagnosis Abnormal electrocardiogram Nonspecific abnormal electrocardiogram (ECG) (EKG) LBBB (left bundle branch block) Other left bundle branch block [facility]* Diagnosis Abdominal distension (gaseous) Flatulence, eructation, and gas pain Nausea Nausea alone RUQ abdominal pain Abdominal pain, right upper quadrant [facility] Diagnosis Primary hypertension Unspecified essential hypertension Chronic diastolic congestive heart failure (HCC) Chronic diastolic heart failure [facility] Diagnosis Chronic diastolic congestive heart failure [...] Primary hypercoagulable state [facility]* Diagnosis LBBB (left bundle branch block)- Primary Other left bundle branch block Presence of cardiac resynchronization therapy defibrillator (RN RENAL-D) Acute on chronic systolic CHF (congestive heart failure) (HCC) Acute on chronic systolic heart failure [facility] Diagnosis Vagina, candidiasis- Primary Candidiasis of vulva and vagina Burning with urination Dysuria 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 Acute cough Laryngopharyngeal reflux (LPR) Other diseases of larynx [facility] Diagnosis Chronic systolic congestive heart failure (HCC)- Primary Chronic systolic heart failure Nonischemic cardiomyopathy (HCC) Other primary cardiomyopathies Mixed hyperlipidemia LBBB (left bundle branch block) Other left bundle branch block Presence of cardiac resynchronization therapy defibrillator (RN RENAL-D) Primary hypertension Unspecified essential hypertension 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 Valvular heart disease Endocarditis, valve unspecified, unspecified cause [facility] noteNo assessment information availableWOhioHealth [facility] Work Phone: Evaluation note* Diagnosis Foot pain, left- Primary Pain in limb Localized swelling of left foot Foot pain, left Pain in limb Localized swelling of left foot [facility]* Diagnosis Repetitive stress injury- Primary Unspecified site of sprain and strain Venous insufficiency Unspecified venous (peripheral) insufficiency [facility] Diagnosis Repetitive stress injury Unspecified site of sprain and strain [facility] Diagnosis Acute on chronic systolic CHF [...] of left foot [facility] Diagnosis Hypothyroidism, acquired- Primary Unspecified [...] Diagnosis Presence of cardiac resynchronization therapy defibrillator (RN RENAL-D)- Primary Non-ischemic cardiomyopathy (HCC) Other primary cardiomyopathies [...] not elsewhere classified [facility] Diagnosis Pre-op evaluation- Primary [...] not elsewhere classified [facility] Diagnosis Pre-op evaluation- Primary Preoperative examination, [...] of left foot [facility]* Diagnosis Pre-op evaluation- Primary Preoperative examination, [...] Chronic cough Cough documented in this encounter [facility] note* Diagnosis Pre-op evaluation- Primary Preoperative examination, [...] of head region [facility]* Diagnosis Pre-op evaluation- Primary Preoperative examination, [...] Other primary cardiomyopathies documented in this encounter [facility] note* Diagnosis Pre-op evaluation- Primary Preoperative examination, [...] joint, upper arm documented in this encounter [facility] note* Diagnosis Pre-op evaluation- Primary Preoperative examination, [...] of head region [facility] Diagnosis Pre-op evaluation- Primary Preoperative examination, [...] 30-34.9 Obesity, unspecified [facility] Diagnosis Great toe pain, left Pre-op [...] 30-34.9 Obesity, unspecified documented in this encounter [facility] Diagnosis Pre-op evaluation- Primary Preoperative examination, [...] bundle branch block 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 documented in this encounter [facility]* Diagnosis Pre-op evaluation- Primary Preoperative examination, [...] not elsewhere classified [facility] Pre-op evaluation- Primary Preoperative examination, [...] not elsewhere classified [facility] Diagnosis Pre-op evaluation- Primary Preoperative examination, [...] of head region [facility] Diagnosis Pre-op evaluation- Primary Preoperative examination, [...] not elsewhere classified [facility] Diagnosis Pre-op evaluation- Primary Preoperative examination, [...] Other primary cardiomyopathies documented in this encounter [facility]* Diagnosis Pre-op evaluation- Primary Preoperative examination, [...] unspecified Acute cough documented in this encounter [facility]* Diagnosis Pre-op evaluation- Primary Preoperative examination, [...] vitamin D deficiency documented in this encounter [facility]* Diagnosis Pre-op evaluation- Primary Preoperative examination, [...] not elsewhere classified [facility] Diagnosis Pre-op evaluation- Primary Preoperative examination, [...] of cardiac pacemaker documented in this encounter [facility] note* Diagnosis Pre-op evaluation- Primary Preoperative examination, [...] of cardiac pacemaker documented [facility] this encounter [facility]* Diagnosis Pre-op evaluation- Primary Preoperative examination, [...] 30-34.9 Obesity, unspecified Cardiac resynchronization therapy defibrillator (RN RENAL-D) in place- Primary documented in this encounter [facility] note* Diagnosis Pre-op evaluation- Primary Preoperative examination, [...] 30-34.9 Obesity, unspecified Cardiac resynchronization therapy defibrillator (RN RENAL-D) in place- Primary Chronic HFrEF (heart failure with reduced ejection fraction) (HCC) Medication management Encounter for long-term (current) use of other medications documented in this encounter [facility] note* Diagnosis Pre-op evaluation- Primary Preoperative examination, [...] Other primary cardiomyopathies 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 Left bundle branch block Other left bundle branch block Cardiac resynchronization therapy defibrillator (RN RENAL-D) in place documented in this encounter [facility] Discharge instructionsAdditional Instructions Use incentive spirometer [...] of any fluid is an option for this.[facility] Work Phone: Reason for referral (narrative)* Diagnostic Procedure Only (Routine) - Closed Specialty Diagnoses / Procedures Referred By Crissy kelley Referred To Contact [facility] Diagnoses Encounter for screening mammogram for breast cancer Procedures KARTHIK SCREENING SCREENING MAMMOGRAPHY BI 2-VIEW BREAST INC CAD Maycol Valladares MD [address] [place] [address] [facility] [address] [place] [address] Referral ID Status Reason Start Date Expiration Date V isits Requested Visits Authorized [id number] Closed Auto-Generate d Referral 07/01/2021 07/31/2022 1 1 [facility] for referral (narrative)* Diagnostic Procedure Only (Routine) - Closed Specialty Diagnoses / Procedures Referred By Crissy kelley Referred To Contact XR IMAGING Diagnoses Chronic left shoulder pain Left elbow pain Procedures XR SHOULDER LIMITED 2V AP/TRUE AP LEFT RADEX SHOULDER COMPLETE MINIMUM 2 VIEWS Alejandrina Harvey APRN.PELLETIZER TENDER [address] [place] [address] X[facility] Imaging Referral ID Status Reason Start Date Expiration Date V isits Requested Visits Authorized [id number] Closed Auto-Generate d Referral 09/01/2021 10/01/2022 1 1 * Diagnostic Procedure Only (Routine) - Closed Specialty Diagnoses / Procedures Referred By Contac t Referred To Contact XR IMAGING Diagnoses Chronic left shoulder pain Left elbow pain Procedures XR ELBOW GENERAL 2V AP/LAT LEFT RADEX ELBOW 2 VIEWS Alejandrina Harvey APRN.CNP [address] [place] [address] Xr Imaging Referral ID Status Reason Start Date Expiration Date V isits Requested Visits Authorized [id number] Closed Auto-Generate d Referral 09/01/2021 10/01/2022 1 1 [facility] for referral (narrative)* Outpatient Procedure (Routine) - Closed Specialty Diagnoses / Procedures Referred By Contac t Referred To Contact [facility] Diagnoses Abdominal bloating Belching Abdominal pain, unspecified abdominal location Procedures EGD DIAGNOSTIC ESOPHAGOGASTRODUODENOSC OPY TRANSORAL DIAGNOSTIC Sincere Perkins PA-C [address] [place] [address] [facility] [place] [facility] [address] [place] [address] Referral ID Status Reason Start Date Expiration Date V isits Requested Visits Authorized [id number] Closed Auto-Generate d Referral 11/02/2021 11/02/2022 1 1 * Outpatient Procedure (Routine) - Closed Specialty Diagnoses / Procedures Referred By Contac t Referred To Contact [facility] Diagnoses Abdominal bloating Belching Abdominal pain, unspecified abdominal location Procedures COLONOSCOPY DIAGNOSTIC COLONOSCOPY FLX DX W/COLLJ SPEC WHEN PFRMD Sincere Perkins PA-C [address] [place] [address] [facility] [address] [place] [id number] Referral ID Status Reason Start Date Expiration Date V isits Requested Visits Authorized [id number] Closed Auto-Generate d Referral 11/02/2021 11/02/2022 1 1 [facility] for referral (narrative)* Outpatient Procedure (Routine) - Closed Specialty Diagnoses / Procedures Referred By Contac t Referred To Contact [facility] [place] Diagnoses Abdominal bloating Belching Abdominal pain, unspecified abdominal location Procedures EGD DIAGNOSTIC ESOPHAGOGASTRODUODENOSC OPY TRANSORAL DIAGNOSTIC Sincere Perkins PA-C [address] [place] [address] [address] Referral ID Status Reason Start Date Expiration Date V isits Requested Visits Authorized [id number] Closed Auto-Generate d Referral 11/02/2021 11/02/2022 1 1 * Outpatient Procedure (Routine) - Closed Specialty Diagnoses / Procedures Referred By Contac t Referred To Contact [facility] Diagnoses Abdominal bloating Belching Abdominal pain, unspecified abdominal location Procedures COLONOSCOPY DIAGNOSTIC COLONOSCOPY FLX DX W/COLLJ SPEC WHEN PFRMD Sincere Perkins PA-C [address] [place] [address] [address] Referral ID Status Reason Start Date Expiration Date V isits Requested Visits Authorized [id number] Closed Auto-Generate d Referral 11/02/2021 11/02/2022 1 1 [facility] for referral (narrative)* Outpatient Procedure (Routine) - Authorized Specialty Diagnoses / Procedures Referred By Contac t Referred [facility] Diagnoses Cardiomegaly Procedures ECHO ECHO TTHRC R-T 2D W/WOM-MODE COMPL SPEC&COLR D Santo Oneill MD [address] [place] [address] [facility] [address] [place] [address] Referral ID Status Reason Start Date Expiration Date Visits Requested Visits Authorized [id number] Authorized Auto-Generat ed Referral 02/13/2023 1 1 [facility] for referral (narrative)* Outpatient Procedure (Routine) - Closed Specialty Diagnoses / Procedures Referred By Contac t Referred To Contact [facility] Diagnoses Primary hypertension Palpitations Mixed hyperlipidemia Procedures ECG COMPLETE ECG ROUTINE ECG W/LEAST 12 LDS W/I&R Santo Oneill MD [address] [place] [address] [facility] [address] [place] [address] Referral ID Status Reason Start Date Expiration Date V isits Requested Visits Authorized [id number] Closed Auto-Generate d Referral 08/03/2022 08/03/2023 1 1 [facility] for referral (narrative)* Outpatient Procedure (Routine) - Pending Review Specialty Diagnoses / Procedures Referred By Contac t Referred To Contact [facility] Diagnoses LBBB (left bundle branch block) Presence of cardiac resynchronization therapy defibrillator (RN RENAL-D) Acute on chronic systolic CHF (congestive heart failure) (HCC) Procedures ECG COMPLETE ECG ROUTINE ECG W/LEAST 12 LDS W/I&[place] [address] [place] [address] [address] Referral ID Status Reason Start Date Expiration Date Visits Requested Visits Authorized [id number] Pending Review Auto-Generat ed Referral 08/07/2023 08/06/2024 1 1 [facility] for referral (narrative)* Diagnostic Procedure Only (Urgent) - Closed Specialty Diagnoses / Procedures Referred By Contac t Referred To Contact XR IMAGING Diagnoses Foot pain, left Localized swelling of left foot Procedures XR FOOT GENERAL 3V AP/LAT/OBL LEFT RADEX FOOT COMPLETE MINIMUM 3 VIEWS Alejandrina Harvey APRN.CNP [address] [place] [address] [place] [address] Referral ID Status Reason Start Date Expiration Date V isits Requested Visits Authorized [id number] Closed Auto-Generate d Referral 09/13/2023 10/12/2024 1 1 [facility] for referral (narrative)* Diagnostic Procedure Only (Routine) - Closed Specialty Diagnoses / Procedures Referred By Contac t Referred To Contact [facility] Diagnoses Repetitive stress injury Procedures XR FOOT GENERAL 3V AP/LAT/OBL LEFT RADEX FOOT COMPLETE MINIMUM 3 VIEWS Oliverio Mata [address] [place] [address] [place] [address] Referral ID Status Reason Start Date Expiration Date V isits Requested Visits Authorized [id number] Closed Auto-Generate d Referral 09/24/2023 10/23/2024 1 1 [facility] for referral (narrative)* Outpatient Procedure (Routine) - Pending Review Specialty Diagnoses / Procedures Referred By Contac t Referred [facility] Diagnoses Presence of cardiac resynchronization therapy defibrillator (RN RENAL-D) Non-ischemic cardiomyopathy (HCC) LBBB (left bundle branch block) Procedures ECG COMPLETE ECG ROUTINE ECG W/LEAST 12 LDS W/I&R Mercedes Vera APRN.PELLETIZER TENDER [address] [place] [address] [facility] [address] [facility] [place] [id number] Referral ID Status Reason Start Date Expiration Date Visits Requested Visits Authorized [id number] Pending Review Auto-Generat ed Referral 11/01/2023 10/31/2024 1 1 [facility] for referral (narrative)* Diagnostic Procedure Only (Routine) - Pending Review Specialty Diagnoses / Procedures Referred By Contac t Referred To Contact XR IMAGING Diagnoses Acute midline low back pain without sciatica Procedures XR LUMBAR GENERAL 3V AP/LAT/L5-S1 RADEX SPINE LUMBOSACRAL 2/3 VIEWS Mandeep Houser DO [address] [place] [address] [place] [address] Referral ID Status Reason Start Date Expiration Date Visits Requested Visits Authorized [id number] Pending Review Auto-Generat ed Referral 11/07/2023 12/06/2024 1 1 * Physical Therapy (Routine) - Authorized Specialty Diagnoses / Procedures Referred By Contac t Referred To Contact [facility] Diagnoses Acute midline low back pain without sciatica Procedures CONSULT TO PHYSICAL THERAPY PHYSICAL THERAPY EVALUATION HIGH COMPLEX 45 MINS Mandeep Houser DO [address] [place] [address] [facility] [address] [address] Referral ID Status Reason Start Date Expiration Date Visits Requested Visits Authorized [id number] Authorized PCP Requested Referral Auto-Generate d Referral 11/07/2023 11/06/2024 99 99 [facility] for referral (narrative)* Outpatient Procedure (Routine) - Closed Specialty Diagnoses / Procedures Referred By Contac t Referred To [facility] Diagnoses Chronic systolic congestive heart failure (HCC) Procedures ECHO ECHO TTHRC R-T 2D W/WOM-MODE COMPL SPEC&[place] [address] [place] [address] [facility] [address] [address] Referral ID Status Reason Start Date Expiration Date V isits Requested Visits Authorized [id number] Closed Auto-Generate d Referral 11/07/2023 08/06/2024 1 1 [facility] for referral (narrative)* Diagnostic Procedure Only (Urgent) - Closed Specialty Diagnoses / Procedures Referred By Contac t Referred To Contact XR IMAGING Diagnoses Foot pain, left Localized swelling of left foot Procedures XR FOOT GENERAL 3V AP/LAT/OBL LEFT RADEX FOOT COMPLETE MINIMUM 3 VIEWS Alejandrina Harvey APRN.PELLETIZER TENDER [address] [place] [address] [place] [address] Referral ID Status Reason Start Date Expiration Date V isits Requested Visits Authorized [id number] Closed Auto-Generate d Referral 09/13/2023 10/12/2024 1 1 [facility] for referral (narrative)* Outpatient Procedure (Routine) - New Request Specialty Diagnoses / Procedures Referred By Contac t Referred To Contact [facility] [place] Diagnoses Nonischemic cardiomyopathy (HCC) Procedures ECHO ECHO TTHRC R-T 2D W/WOM-MODE COMPL SPEC&COLR Angel Benites DO [address] [place] [address] [facility] [address] [address] Referral ID Status Reason Start Date Expiration Date Visits Requested Visits Authorized [id number] New Request Auto-Generat ed Referral 08/06/2024 02/06/2025 1 1 [facility] for referral (narrative)* Diagnostic Procedure Only (Routine) - Closed Specialty Diagnoses / Procedures Referred By Contac t Referred To Contact XR IMAGING Diagnoses Chronic left shoulder pain Left elbow pain Procedures XR SHOULDER LIMITED 2V AP/TRUE AP LEFT RADEX SHOULDER COMPLETE MINIMUM 2 VIEWS Alejandrina Harvey APRN.PELLETIZER TENDER [address] [place] [address] [place] [address] Referral ID Status Reason Start Date Expiration Date V isits Requested Visits Authorized [id number] Closed Auto-Generate d Referral 09/01/2021 10/01/2022 1 1 * Diagnostic Procedure Only (Routine) - Closed Specialty Diagnoses / Procedures Referred By Contac t Referred To Contact XR IMAG[facility] Diagnoses Chronic left shoulder pain Left elbow pain Procedures XR ELBOW GENERAL 2V AP/LAT LEFT RADEX ELBOW 2 VIEWS Alejandrina Harvey APRN.PELLETIZER TENDER [address] [place] [address] [place] [address] Referral ID Status Reason Start Date Expiration Date V isits Requested Visits Authorized [id number] Closed Auto-Generate d Referral 09/01/2021 10/01/2022 1 1 [facility] for referral (narrative)* Diagnostic Procedure Only (Routine) - Closed Specialty Diagnoses / Procedures Referred By Contac t Referred To Contact XR IMAG[facility] Diagnoses Chronic pain of right ankle Procedures XR ANKLE GENERAL 3V AP/LAT/OBL RT X-RAY ANKLE MINIMUM 3 VIEWS Maycol Valladares MD [address] [place] [address] [place] [address] Referral ID Status Reason Start Date Expiration Date V isits Requested Visits Authorized [id number] Closed Auto-Generate d Referral 12/29/2020 01/28/2022 1 1 [facility] for referral (narrative)No reason for referral information [facility] Work Phone: Reason for visit Narrative* Diagnostic Procedure Only (Routine) - Closed Specialty Diagnoses / Procedures Referred By Crissy t Referred To Contact [facility] Diagnoses Encounter for screening mammogram for breast cancer Procedures KARTHIK SCREENING SCREENING MAMMOGRAPHY BI 2-VIEW BREAST INC CAD Valladares, Tereso, MD [address] [place] [address] [facility] [address] [place] [phone] Referral ID Status Reason Start Date Expiration Date V isits Requested Visits Authorized [id number] Closed Auto-Generate d Referral 07/01/2021 07/31/2022 1 1 [facility] for visit Narrative* Outpatient Procedure (Routine) - Closed Specialty Diagnoses / Procedures Referred By Gageac t Referred To Contact [facility] Diagnoses Abdominal bloating Belching Abdominal pain, unspecified abdominal location Procedures EGD DIAGNOSTIC ESOPHAGOGASTRODUODENOSC OPY TRANSORAL DIAGNOSTIC Sincere Perkins PA-C [address] [place] [address] [facility] [address] [address] Referral ID Status Reason Start Date Expiration Date V isits Requested Visits Authorized [id number] Closed Auto-Generate d Referral 11/02/2021 11/02/2022 1 1 [facility] for visit Narrative* Diagnostic Procedure Only (Routine) - Closed Specialty Diagnoses / Procedures Referred By Crissy t Referred To Contact XR IMAGING Diagnoses Repetitive stress injury Procedures XR FOOT GENERAL 3V AP/LAT/OBL LEFT RADEX FOOT COMPLETE MINIMUM 3 VIEWS Oliverio Mata [address] [place] [address] [place] [address] Referral ID Status Reason Start Date Expiration Date V isits Requested Visits Authorized [id number] Closed Auto-Generate d Referral 09/24/2023 10/23/2024 1 1 [facility] for visit Narrative* Outpatient Procedure (Routine) - Closed Specialty Diagnoses / Procedures Referred By Contac t Referred To Contact [facility] Diagnoses Chronic systolic congestive heart failure (HCC) Procedures ECHO ECHO TTHRC R-T 2D W/WOM-MODE COMPL SPEC&[place] [address] [place] [address] [facility] [address] [place] [address] Referral ID Status Reason Start Date Expiration Date V isits Requested Visits Authorized [id number] Closed Auto-Generate d Referral 11/07/2023 08/06/2024 1 1 [facility] for visit Narrative* Diagnostic Procedure Only (Urgent) - Closed Specialty Diagnoses / Procedures Referred By Contac t Referred To Contact XR IMAGING Diagnoses Foot pain, left Localized swelling of left foot Procedures XR FOOT GENERAL 3V AP/LAT/OBL LEFT RADEX FOOT COMPLETE MINIMUM 3 VIEWS Alejandrina Harvey, LEASING ASSISTANT.PELLETIZER TENDER [address] [place] [address] [place] [address] Referral ID Status Reason Start Date Expiration Date V isits Requested Visits Authorized [id number] Closed Auto-Generate d Referral 09/13/2023 10/12/2024 1 1 [facility] for visit Narrative* Diagnostic Procedure Only (Routine) - Closed Specialty Diagnoses / Procedures Referred By Contac t Referred To Contact XR IMAGING Diagnoses Chronic left shoulder pain Left elbow pain Procedures XR SHOULDER LIMITED 2V AP/TRUE AP LEFT RADEX SHOULDER COMPLETE MINIMUM 2 VIEWS Alejandrina Harvey, LEASING ASSISTANT.PELLETIZER TENDER [address] [place] [address] [place] [address] Referral ID Status Reason Start Date Expiration Date V isits Requested Visits Authorized [id number] Closed Auto-Generate d Referral 09/01/2021 10/01/2022 1 1 [facility] for visit Narrative* Diagnostic Procedure Only (Routine) - Closed Specialty Diagnoses / Procedures Referred By Contac t Referred To Contact XR IMAGING Diagnoses Chronic pain of right ankle Procedures XR ANKLE GENERAL 3V AP/LAT/OBL RT X-RAY ANKLE MINIMUM 3 VIEWS Maycol Valladares MD [address] [place] [address] [place] [address] Referral ID Status Reason Start Date Expiration Date V isits Requested Visits Authorized [id number] Closed Auto-Generate d Referral 12/29/2020 01/28/2022 1 1 [facility] Summary Purpose Family History Grandmother Name Dates [...] Documents on File Type Date Recorded Patient Cuff Slitter Expl anation Advance Directive(s) 03/18/2021 2:56 PM Advance Directive(s) 09/28/2020 8:38 PM Advance Directive(s) 09/07/2020 9:42 AM Advance Directive(s) 09/03/2020 2:04 PM Advance Directive(s) 05/30/2020 10:25 AM Advance Directive(s) 05/24/2020 10:03 AM Advance Directive(s) 05/03/2020 9:25 AM Advance Directive(s) 03/09/2020 8:13 AM Advance Directive(s) 03/09/2020 12:44 PM Documents on File Type Date Recorded Patient Cuff Slitter Expl anation Advance Directive(s) 03/18/2021 2:56 PM Advance Directive(s) 09/28/2020 8:38 PM Advance Directive(s) 09/07/2020 9:42 AM Advance Directive(s) 09/03/2020 2:04 PM Advance Directive(s) 05/30/2020 10:25 AM Advance Directive(s) 05/24/2020 10:03 AM Advance Directive(s) 05/03/2020 9:25 AM Advance Directive(s) 03/09/2020 8:13 AM Advance Directive(s) 03/09/2020 12:44 PM Documents on File Type Date Recorded Patient Cuff Slitter Expl anation Advance Directive(s) 11/21/2021 10:55 AM Advance Directive(s) 03/18/2021 2:56 PM Advance Directive(s) 09/28/2020 8:38 PM Advance Directive(s) 09/07/2020 9:42 AM Advance Directive(s) 09/03/2020 2:04 PM Advance Directive(s) 05/30/2020 10:25 AM Advance Directive(s) 05/24/2020 10:03 AM Advance Directive(s) 05/03/2020 9:25 AM Advance Directive(s) 03/09/2020 8:13 AM Advance Directive(s) 03/09/2020 12:44 PM Documents on File Type Date Recorded Patient Cuff Slitter Expl anation Advance Directive(s) 12/05/2021 8:38 AM [...] Documents on File Type Date Recorded Patient Cuff Slitter Expl anation Advance Directive(s) 12/05/2021 8:38 AM [...] Yes August 29, 2023 3:01pm Power of Aging Room Hand Yes August 28 3:01pm Advance Directives on [...] Do you have a Healthcare Power of Aging Room Hand? Yes November 13, 2024 5:58pm Reason for Referral Specialty Diagnoses / Procedures Referred By Contac t Referred To Contact CT IM[facility] Diagnoses Diverticulitis RLQ abdominal pain Lower abdominal pain Procedures CT ABD/PEL W IVCON CT ABD & PELVIS W/CONTRAST Alejandrina Harvey APRN.PELLETIZER TENDER [address] [place] [address] Ct [facility] Referral ID Status Reason Start Date Expiration Date Visits Requested Visits Authorized [id number] Authorized Auto-Generat ed Referral 10/19/2021 11/18/2022 1 1 Referral ID Status Reason Start Date Expiration Date V isits Requested Visits Authorized [id number] Closed Auto-Generate d Referral 10/19/2021 11/18/2022 1 1 Specialty Diagnoses / Procedures Referred By Contac t Referred To Contact CT IMAGING Diagnoses Abdominal distension (gaseous) Nausea RUQ abdominal pain Procedures CT ABD/PEL W IVCON CT ABD & PELVIS W/CONTRAST Mandeep Houser, DO [address] [place] [address] Ct Imaging Referral ID Status Reason Start Date Expiration Date Visits Requested Visits Authorized [id number] Authorized Auto-Generat ed Referral 08/22/2022 09/21/2023 1 1 Specialty Diagnoses / Procedures Referred By Contac t Referred To Contact CT IMAG[facility] Diagnoses Abdominal distension (gaseous) Nausea RUQ abdominal pain Procedures CT ABD/PEL W IVCON CT ABD & PELVIS W/CONTRAST Mandeep Houser L, DO [address] [place] [address] [facility] [place] [address] Referral ID Status Reason Start Date Expiration Date V isits Requested Visits Authorized [id number] Closed Auto-Generate d Referral 08/22/2022 09/21/2023 1 1 Specialty Diagnoses / Procedures Referred By Contac t Referred To Contact Diagnoses Acute on chronic systolic CHF (congestive heart failure) (HCC) Procedures CONSULT TO ELECTROPHYSIOLOGY OFFICE/OUTPATIENT NEW HIGH MDM 60-74 MINUTES Santo Oneill MD [address] [place] [address] Angel Gaxiola MD [address] [phone] Referral ID Status Reason Start Date Expiration Date Visits Requested Visits Authorized [id number] Authorized PCP Requested Referral 04/16/2023 07/08/2023 1 1 Specialty Diagnoses / Procedures Referred By Contac t Referred [facility] Diagnoses Primary hypertension Procedures ECG COMPLETE ECG ROUTINE ECG W/LEAST 12 LDS W/I&R Santo Oneill MD [address] [place] [address] [facility] [address] [place] [address] Referral ID Status Reason Start Date Expiration Date Visits Requested Visits Authorized [id number] Pending Review Auto-Generat ed Referral 3 04/08/2024 1 1 Specialty Diagnoses / Procedures Referred By Contac t Referred To Contact CT IMAGING Diagnoses Word finding difficulty New onset of headaches after age [address] BRAIN WO IVCON CT HEAD/BRAIN W/O CONTRAST MATERIAL Mandeep Houser L, DO [address] [place] [address] [place] [address] Referral ID Status Reason Start Date Expiration Date Visits Requested Visits Authorized [id number] Authorized Auto-Generat ed Referral 10/31/2023 11/29/2024 1 1 Referral ID Status Reason Start Date Expiration Date V isits Requested Visits Authorized [id number] Closed Auto-Generate d Referral 10/31/2023 11/29/2024 1 1 Medications Administered Section Inactive Administered Medications - up to 3 most recent administrations Medication Order MAR Action Action Date Dose Rate Site benzocaine 20% 1 Mcdowell (TOPEX) 1 Mcdowell, TOPICAL, ONCE, 1 dose, On Sun12/05/21 at 1030, 1 spray to the back of the throat prior to EGD - Pharmaceutical Waste: Aerosol -, Preprocedure Given 12/05/2021 9:50 AM EDT 1 Mcdowell lactated ringers iv infusion 30 mL/hr, INTRAVENOUS, [...] section and content) DATE CREATED AUTHOR 02/21/2018 [facility] DATE CREATED AUTHOR AUTHOR'S ORGANIZ ATION 01/28/2019 [facility] DATE CREATED AUTHOR AUTHOR'S ORGANIZ ATION 02/09/2020 [facility] DATE CREATED AUTHOR AUTHOR'S ORGANIZ ATION 04/30/2020 [facility] DATE CREATED AUTHOR AUTHOR'S ORGANIZ ATION 01/11/2021 [facility] DATE CREATED AUTHOR AUTHOR'S ORGANIZ ATION 08/24/2023 [facility] DATE CREATED AUTHOR AUTHOR'S ORGANIZ ATION 11/03/2023 [facility] DATE CREATED AUTHOR AUTHOR'S ORGANIZ ATION 11/19/2023 [facility] DATE CREATED AUTHOR AUTHOR'S ORGANIZ ATION 04/26/2024 [facility] DATE CREATED AUTHOR AUTHOR'S ORGANIZ ATION 11/09/2024 [facility] Source Comments (unrecognize d section and content) In the event this informatio n is protected by the Federal Confidentiality of Alcohol and Drug Abuse Patient Records regulations: The Federal rules restrict any use of the information to criminally investigate or prosecute any alcohol or drug abuse patient.[facility] CenterIn the event this information is protected by the Federal Confidentiality of Alcohol and Drug Abuse Patient Records regulations: The Federal rules restrict any use of the information to criminally investigate or prosecute any alcohol or drug abuse patient.[facility] CenterIn the event this information is protected by the Federal Confidentiality of Alcohol and Drug Abuse Patient Records regulations: The Federal rules restrict any use of the information to criminally investigate or prosecute any alcohol or drug abuse patient.[facility] CenterIn the event this information is protected by the Federal Confidentiality of Alcohol and Drug Abuse Patient Records regulations: The Federal rules restrict any use of the information to criminally investigate or prosecute any alcohol or drug abuse patient.[facility] CenterIn the event this information is protected by the Federal Confidentiality of Alcohol and Drug Abuse Patient Records regulations: The Federal rules restrict any use of the information to criminally investigate or prosecute any alcohol or drug abuse patient.[facility] CenterIn the event this information is protected by the Federal Confidentiality of Alcohol and Drug Abuse Patient Records regulations: The Federal rules restrict any use of the information to criminally investigate or prosecute any alcohol or drug abuse patient.[facility] CenterIn the event this information is protected by the Federal Confidentiality of Alcohol and Drug Abuse Patient Records regulations: The Federal rules restrict any use of the information to criminally investigate or prosecute any alcohol or drug abuse patient.[facility] CenterIn the event this information is protected by the Federal Confidentiality of Alcohol and Drug Abuse Patient Records regulations: The Federal rules restrict any use of the information to criminally investigate or prosecute any alcohol or drug abuse patient.[facility] CenterIn the event this information is protected by the Federal Confidentiality of Alcohol and Drug Abuse Patient Records regulations: The Federal rules restrict any use of the information to criminally investigate or prosecute any alcohol or drug abuse patient.[facility] CenterIn the event this information is protected by the Federal Confidentiality of Alcohol and Drug Abuse Patient Records regulations: The Federal rules restrict any use of the information to criminally investigate or prosecute any alcohol or drug abuse patient.[facility] CenterIn the event this information is protected by the Federal Confidentiality of Alcohol and Drug Abuse Patient Records regulations: The Federal rules restrict any use of the information to criminally investigate or prosecute any alcohol or drug abuse patient.[facility] CenterIn the event this information is protected by the Federal Confidentiality of Alcohol and Drug Abuse Patient Records regulations: The Federal rules restrict any use of the information to criminally investigate or prosecute any alcohol or drug abuse patient.[facility] CenterIn the event this information is protected by the Federal Confidentiality of Alcohol and Drug Abuse Patient Records regulations: The Federal rules restrict any use of the information to criminally investigate or prosecute any alcohol or drug abuse patient.[facility] CenterIn the event this information is protected by the Federal Confidentiality of Alcohol and Drug Abuse Patient Records regulations: The Federal rules restrict any use of the information to criminally investigate or prosecute any alcohol or drug abuse patient.[facility] CenterIn the event this information is protected by the Federal Confidentiality of Alcohol and Drug Abuse Patient Records regulations: The Federal rules restrict any use of the information to criminally investigate or prosecute any alcohol or drug abuse patient.[facility] CenterIn the event this information is protected by the Federal Confidentiality of Alcohol and Drug Abuse Patient Records regulations: The Federal rules restrict any use of the information to criminally investigate or prosecute any alcohol or drug abuse patient.[facility] CenterIn the event this information is protected by the Federal Confidentiality of Alcohol and Drug Abuse Patient Records regulations: The Federal rules restrict any use of the information to criminally investigate or prosecute any alcohol or drug abuse patient.[facility] CenterIn the event this information is protected by the Federal Confidentiality of Alcohol and Drug Abuse Patient Records regulations: The Federal rules restrict any use of the information to criminally investigate or prosecute any alcohol or drug abuse patient.[facility] CenterIn the event this information is protected by the Federal Confidentiality of Alcohol and Drug Abuse Patient Records regulations: The Federal rules restrict any use of the information to criminally investigate or prosecute any alcohol or drug abuse patient.[facility] CenterIn the event this information is protected by the Federal Confidentiality of Alcohol and Drug Abuse Patient Records regulations: The Federal rules restrict any use of the information to criminally investigate or prosecute any alcohol or drug abuse patient.[facility] CenterIn the event this information is protected by the Federal Confidentiality of Alcohol and Drug Abuse Patient Records regulations: The Federal rules restrict any use of the information to criminally investigate or prosecute any alcohol or drug abuse patient.[facility] CenterIn the event this information is protected by the Federal Confidentiality of Alcohol and Drug Abuse Patient Records regulations: The Federal rules restrict any use of the information to criminally investigate or prosecute any alcohol or drug abuse patient.[facility] CenterIn the event this information is protected by the Federal Confidentiality of Alcohol and Drug Abuse Patient Records regulations: The Federal rules restrict any use of the information to criminally investigate or prosecute any alcohol or drug abuse patient.[facility] CenterIn the event this information is protected by the Federal Confidentiality of Alcohol and Drug Abuse Patient Records regulations: The Federal rules restrict any use of the information to criminally investigate or prosecute any alcohol or drug abuse patient.[facility] CenterIn the event this information is protected by the Federal Confidentiality of Alcohol and Drug Abuse Patient Records regulations: The Federal rules restrict any use of the information to criminally investigate or prosecute any alcohol or drug abuse patient.[facility] CenterIn the event this information is protected by the Federal Confidentiality of Alcohol and Drug Abuse Patient Records regulations: The Federal rules restrict any use of the information to criminally investigate or prosecute any alcohol or drug abuse patient.[facility] CenterIn the event this information is protected by the Federal Confidentiality of Alcohol and Drug Abuse Patient Records regulations: The Federal rules restrict any use of the information to criminally investigate or prosecute any alcohol or drug abuse patient.[facility] CenterIn the event this information is protected by the Federal Confidentiality of Alcohol and Drug Abuse Patient Records regulations: The Federal rules restrict any use of the information to criminally investigate or prosecute any alcohol or drug abuse patient.[facility] CenterIn the event this information is protected by the Federal Confidentiality of Alcohol and Drug Abuse Patient Records regulations: The Federal rules restrict any use of the information to criminally investigate or prosecute any alcohol or drug abuse patient.[facility] CenterIn the event this information is protected by the Federal Confidentiality of Alcohol and Drug Abuse Patient Records regulations: The Federal rules restrict any use of the information to criminally investigate or prosecute any alcohol or drug abuse patient.[facility] CenterIn the event this information is protected by the Federal Confidentiality of Alcohol and Drug Abuse Patient Records regulations: The Federal rules restrict any use of the information to criminally investigate or prosecute any alcohol or drug abuse patient.[facility] CenterIn the event this information is protected by the Federal Confidentiality of Alcohol and Drug Abuse Patient Records regulations: The Federal rules restrict any use of the information to criminally investigate or prosecute any alcohol or drug abuse patient.[facility] CenterIn the event this information is protected by the Federal Confidentiality of Alcohol and Drug Abuse Patient Records regulations: The Federal rules restrict any use of the information to criminally investigate or prosecute any alcohol or drug abuse patient.[facility] CenterIn the event this information is protected by the Federal Confidentiality of Alcohol and Drug Abuse Patient Records regulations: The Federal rules restrict any use of the information to criminally investigate or prosecute any alcohol or drug abuse patient.[facility] CenterIn the event this information is protected by the Federal Confidentiality of Alcohol and Drug Abuse Patient Records regulations: The Federal rules restrict any use of the information to criminally investigate or prosecute any alcohol or drug abuse patient.[facility] CenterIn the event this information is protected by the Federal Confidentiality of Alcohol and Drug Abuse Patient Records regulations: The Federal rules restrict any use of the information to criminally investigate or prosecute any alcohol or drug abuse patient.[facility] CenterIn the event this information is protected by the Federal Confidentiality of Alcohol and Drug Abuse Patient Records regulations: The Federal rules restrict any use of the information to criminally investigate or prosecute any alcohol or drug abuse patient.[facility] CenterIn the event this information is protected by the Federal Confidentiality of Alcohol and Drug Abuse Patient Records regulations: The Federal rules restrict any use of the information to criminally investigate or prosecute any alcohol or drug abuse patient.[facility] CenterIn the event this information is protected by the Federal Confidentiality of Alcohol and Drug Abuse Patient Records regulations: The Federal rules restrict any use of the information to criminally investigate or prosecute any alcohol or drug abuse patient.[facility] CenterIn the event this information is protected by the Federal Confidentiality of Alcohol and Drug Abuse Patient Records regulations: The Federal rules restrict any use of the information to criminally investigate or prosecute any alcohol or drug abuse patient.[facility] CenterIn the event this information is protected by the Federal Confidentiality of Alcohol and Drug Abuse Patient Records regulations: The Federal rules restrict any use of the information to criminally investigate or prosecute any alcohol or drug abuse patient.[facility] CenterIn the event this information is protected by the Federal Confidentiality of Alcohol and Drug Abuse Patient Records regulations: The Federal rules restrict any use of the information to criminally investigate or prosecute any alcohol or drug abuse patient.[facility] CenterIn the event this information is protected by the Federal Confidentiality of Alcohol and Drug Abuse Patient Records regulations: The Federal rules restrict any use of the information to criminally investigate or prosecute any alcohol or drug abuse patient.[facility] CenterIn the event this information is protected by the Federal Confidentiality of Alcohol and Drug Abuse Patient Records regulations: The Federal rules restrict any use of the information to criminally investigate or prosecute any alcohol or drug abuse patient.[facility] CenterIn the event this information is protected by the Federal Confidentiality of Alcohol and Drug Abuse Patient Records regulations: The Federal rules restrict any use of the information to criminally investigate or prosecute any alcohol or drug abuse patient.[facility] CenterIn the event this information is protected by the Federal Confidentiality of Alcohol and Drug Abuse Patient Records regulations: The Federal rules restrict any use of the information to criminally investigate or prosecute any alcohol or drug abuse patient.[facility] CenterIn the event this information is protected by the Federal Confidentiality of Alcohol and Drug Abuse Patient Records regulations: The Federal rules restrict any use of the information to criminally investigate or prosecute any alcohol or drug abuse patient.[facility] CenterIn the event this information is protected by the Federal Confidentiality of Alcohol and Drug Abuse Patient Records regulations: The Federal rules restrict any use of the information to criminally investigate or prosecute any alcohol or drug abuse patient.[facility] CenterIn the event this information is protected by the Federal Confidentiality of Alcohol and Drug Abuse Patient Records regulations: The Federal rules restrict any use of the information to criminally investigate or prosecute any alcohol or drug abuse patient.[facility] CenterIn the event this information is protected by the Federal Confidentiality of Alcohol and Drug Abuse Patient Records regulations: The Federal rules restrict any use of the information to criminally investigate or prosecute any alcohol or drug abuse patient.[facility] CenterIn the event this information is protected by the Federal Confidentiality of Alcohol and Drug Abuse Patient Records regulations: The Federal rules restrict any use of the information to criminally investigate or prosecute any alcohol or drug abuse patient.[facility] CenterIn the event this information is protected by the Federal Confidentiality of Alcohol and Drug Abuse Patient Records regulations: The Federal rules restrict any use of the information to criminally investigate or prosecute any alcohol or drug abuse patient.[facility] CenterIn the event this information is protected by the Federal Confidentiality of Alcohol and Drug Abuse Patient Records regulations: The Federal rules restrict any use of the information to criminally investigate or prosecute any alcohol or drug abuse patient.[facility] CenterIn the event this information is protected by the Federal Confidentiality of Alcohol and Drug Abuse Patient Records regulations: The Federal rules restrict any use of the information to criminally investigate or prosecute any alcohol or drug abuse patient.[facility] CenterIn the event this information is protected by the Federal Confidentiality of Alcohol and Drug Abuse Patient Records regulations: The Federal rules restrict any use of the information to criminally investigate or prosecute any alcohol or drug abuse patient.[facility] CenterIn the event this information is protected by the Federal Confidentiality of Alcohol and Drug Abuse Patient Records regulations: The Federal rules restrict any use of the information to criminally investigate or prosecute any alcohol or drug abuse patient.[facility] CenterIn the event this information is protected by the Federal Confidentiality of Alcohol and Drug Abuse Patient Records regulations: The Federal rules restrict any use of the information to criminally investigate or prosecute any alcohol or drug abuse patient.[facility] CenterIn the event this information is protected by the Federal Confidentiality of Alcohol and Drug Abuse Patient Records regulations: The Federal rules restrict any use of the information to criminally investigate or prosecute any alcohol or drug abuse patient.[facility] CenterIn the event this information is protected by the Federal Confidentiality of Alcohol and Drug Abuse Patient Records regulations: The Federal rules restrict any use of the information to criminally investigate or prosecute any alcohol or drug abuse patient.[facility] CenterIn the event this information is protected by the Federal Confidentiality of Alcohol and Drug Abuse Patient Records regulations: The Federal rules restrict any use of the information to criminally investigate or prosecute any alcohol or drug abuse patient.[facility] CenterIn the event this information is protected by the Federal Confidentiality of Alcohol and Drug Abuse Patient Records regulations: The Federal rules restrict any use of the information to criminally investigate or prosecute any alcohol or drug abuse patient.[facility] CenterIn the event this information is protected by the Federal Confidentiality of Alcohol and Drug Abuse Patient Records regulations: The Federal rules restrict any use of the information to criminally investigate or prosecute any alcohol or drug abuse patient.[facility] CenterIn the event this information is protected by the Federal Confidentiality of Alcohol and Drug Abuse Patient Records regulations: The Federal rules restrict any use of the information to criminally investigate or prosecute any alcohol or drug abuse patient.[facility] CenterIn the event this information is protected by the Federal Confidentiality of Alcohol and Drug Abuse Patient Records regulations: The Federal rules restrict any use of the information to criminally investigate or prosecute any alcohol or drug abuse patient.[facility] CenterIn the event this information is protected by the Federal Confidentiality of Alcohol and Drug Abuse Patient Records regulations: The Federal rules restrict any use of the information to criminally investigate or prosecute any alcohol or drug abuse patient.[facility] CenterIn the event this information is protected by the Federal Confidentiality of Alcohol and Drug Abuse Patient Records regulations: The Federal rules restrict any use of the information to criminally investigate or prosecute any alcohol or drug abuse patient.[facility] CenterIn the event this information is protected by the Federal Confidentiality of Alcohol and Drug Abuse Patient Records regulations: The Federal rules restrict any use of the information to criminally investigate or prosecute any alcohol or drug abuse patient.[facility] CenterIn the event this information is protected by the Federal Confidentiality of Alcohol and Drug Abuse Patient Records regulations: The Federal rules restrict any use of the information to criminally investigate or prosecute any alcohol or drug abuse patient.[facility] CenterIn the event this information is protected by the Federal Confidentiality of Alcohol and Drug Abuse Patient Records regulations: The Federal rules restrict any use of the information to criminally investigate or prosecute any alcohol or drug abuse patient.[facility] CenterIn the event this information is protected by the Federal Confidentiality of Alcohol and Drug Abuse Patient Records regulations: The Federal rules restrict any use of the information to criminally investigate or prosecute any alcohol or drug abuse patient.[facility] CenterIn the event this information is protected by the Federal Confidentiality of Alcohol and Drug Abuse Patient Records regulations: The Federal rules restrict any use of the information to criminally investigate or prosecute any alcohol or drug abuse patient.[facility] CenterIn the event this information is protected by the Federal Confidentiality of Alcohol and Drug Abuse Patient Records regulations: The Federal rules restrict any use of the information to criminally investigate or prosecute any alcohol or drug abuse patient.[facility] CenterIn the event this information is protected by the Federal Confidentiality of Alcohol and Drug Abuse Patient Records regulations: The Federal rules restrict any use of the information to criminally investigate or prosecute any alcohol or drug abuse patient.[facility] CenterIn the event this information is protected by the Federal Confidentiality of Alcohol and Drug Abuse Patient Records regulations: The Federal rules restrict any use of the information to criminally investigate or prosecute any alcohol or drug abuse patient.[facility] CenterIn the event this information is protected by the Federal Confidentiality of Alcohol and Drug Abuse Patient Records regulations: The Federal rules restrict any use of the information to criminally investigate or prosecute any alcohol or drug abuse patient.[facility] CenterIn the event this information is protected by the Federal Confidentiality of Alcohol and Drug Abuse Patient Records regulations: The Federal rules restrict any use of the information to criminally investigate or prosecute any alcohol or drug abuse patient.[facility] CenterIn the event this information is protected by the Federal Confidentiality of Alcohol and Drug Abuse Patient Records regulations: The Federal rules restrict any use of the information to criminally investigate or prosecute any alcohol or drug abuse patient.[facility] CenterIn the event this information is protected by the Federal Confidentiality of Alcohol and Drug Abuse Patient Records regulations: The Federal rules restrict any use of the information to criminally investigate or prosecute any alcohol or drug abuse patient.[facility] CenterIn the event this information is protected by the Federal Confidentiality of Alcohol and Drug Abuse Patient Records regulations: The Federal rules restrict any use of the information to criminally investigate or prosecute any alcohol or drug abuse patient.[facility] CenterIn the event this information is protected by the Federal Confidentiality of Alcohol and Drug Abuse Patient Records regulations: The Federal rules restrict any use of the information to criminally investigate or prosecute any alcohol or drug abuse patient.[facility] CenterIn the event this information is protected by the Federal Confidentiality of Alcohol and Drug Abuse Patient Records regulations: The Federal rules restrict any use of the information to criminally investigate or prosecute any alcohol or drug abuse patient.[facility] CenterIn the event this information is protected by the Federal Confidentiality of Alcohol and Drug Abuse Patient Records regulations: The Federal rules restrict any use of the information to criminally investigate or prosecute any alcohol or drug abuse patient.[facility] CenterIn the event this information is protected by the Federal Confidentiality of Alcohol and Drug Abuse Patient Records regulations: The Federal rules restrict any use of the information to criminally investigate or prosecute any alcohol or drug abuse patient.[facility] CenterIn the event this information is protected by the Federal Confidentiality of Alcohol and Drug Abuse Patient Records regulations: The Federal rules restrict any use of the information to criminally investigate or prosecute any alcohol or drug abuse patient.[facility] CenterIn the event this information is protected by the Federal Confidentiality of Alcohol and Drug Abuse Patient Records regulations: The Federal rules restrict any use of the information to criminally investigate or prosecute any alcohol or drug abuse patient.[facility] CenterIn the event this information is protected by the Federal Confidentiality of Alcohol and Drug Abuse Patient Records regulations: The Federal rules restrict any use of the information to criminally investigate or prosecute any alcohol or drug abuse patient.[facility] CenterIn the event this information is protected by the Federal Confidentiality of Alcohol and Drug Abuse Patient Records regulations: The Federal rules restrict any use of the information to criminally investigate or prosecute any alcohol or drug abuse patient.[facility] CenterIn the event this information is protected by the Federal Confidentiality of Alcohol and Drug Abuse Patient Records regulations: The Federal rules restrict any use of the information to criminally investigate or prosecute any alcohol or drug abuse patient.[facility] CenterIn the event this information is protected by the Federal Confidentiality of Alcohol and Drug Abuse Patient Records regulations: The Federal rules restrict any use of the information to criminally investigate or prosecute any alcohol or drug abuse patient.[facility] CenterIn the event this information is protected by the Federal Confidentiality of Alcohol and Drug Abuse Patient Records regulations: The Federal rules restrict any use of the information to criminally investigate or prosecute any alcohol or drug abuse patient.[facility] CenterIn the event this information is protected by the Federal Confidentiality of Alcohol and Drug Abuse Patient Records regulations: The Federal rules restrict any use of the information to criminally investigate or prosecute any alcohol or drug abuse patient.[facility] CenterIn the event this information is protected by the Federal Confidentiality of Alcohol and Drug Abuse Patient Records regulations: The Federal rules restrict any use of the information to criminally investigate or prosecute any alcohol or drug abuse patient.[facility] CenterIn the event this information is protected by the Federal Confidentiality of Alcohol and Drug Abuse Patient Records regulations: The Federal rules restrict any use of the information to criminally investigate or prosecute any alcohol or drug abuse patient.[facility] CenterIn the event this information is protected by the Federal Confidentiality of Alcohol and Drug Abuse Patient Records regulations: The Federal rules restrict any use of the information to criminally investigate or prosecute any alcohol or drug abuse patient.[facility] CenterIn the event this information is protected by the Federal Confidentiality of Alcohol and Drug Abuse Patient Records regulations: The Federal rules restrict any use of the information to criminally investigate or prosecute any alcohol or drug abuse patient.[facility] CenterIn the event this information is protected by the Federal Confidentiality of Alcohol and Drug Abuse Patient Records regulations: The Federal rules restrict any use of the information to criminally investigate or prosecute any alcohol or drug abuse patient.[facility] CenterIn the event this information is protected by the Federal Confidentiality of Alcohol and Drug Abuse Patient Records regulations: The Federal rules restrict any use of the information to criminally investigate or prosecute any alcohol or drug abuse patient.[facility] CenterIn the event this information is protected by the Federal Confidentiality of Alcohol and Drug Abuse Patient Records regulations: The Federal rules restrict any use of the information to criminally investigate or prosecute any alcohol or drug abuse patient.[facility] CenterIn the event this information is protected by the Federal Confidentiality of Alcohol and Drug Abuse Patient Records regulations: The Federal rules restrict any use of the information to criminally investigate or prosecute any alcohol or drug abuse patient.[facility] CenterIn the event this information is protected by the Federal Confidentiality of Alcohol and Drug Abuse Patient Records regulations: The Federal rules restrict any use of the information to criminally investigate or prosecute any alcohol or drug abuse patient.[facility] CenterIn the event this information is protected by the Federal Confidentiality of Alcohol and Drug Abuse Patient Records regulations: The Federal rules restrict any use of the information to criminally investigate or prosecute any alcohol or drug abuse patient.[facility] CenterIn the event this information is protected by the Federal Confidentiality of Alcohol and Drug Abuse Patient Records regulations: The Federal rules restrict any use of the information to criminally investigate or prosecute any alcohol or drug abuse patient.[facility] CenterIn the event this information is protected by the Federal Confidentiality of Alcohol and Drug Abuse Patient Records regulations: The Federal rules restrict any use of the information to criminally investigate or prosecute any alcohol or drug abuse patient.[facility] CenterIn the event this information is protected by the Federal Confidentiality of Alcohol and Drug Abuse Patient Records regulations: The Federal rules restrict any use of the information to criminally investigate or prosecute any alcohol or drug abuse patient.[facility] CenterIn the event this information is protected by the Federal Confidentiality of Alcohol and Drug Abuse Patient Records regulations: The Federal rules restrict any use of the information to criminally investigate or prosecute any alcohol or drug abuse patient.[facility] CenterIn the event this information is protected by the Federal Confidentiality of Alcohol and Drug Abuse Patient Records regulations: The Federal rules restrict any use of the information to criminally investigate or prosecute any alcohol or drug abuse patient.[facility] CenterIn the event this information is protected by the Federal Confidentiality of Alcohol and Drug Abuse Patient Records regulations: The Federal rules restrict any use of the information to criminally investigate or prosecute any alcohol or drug abuse patient.[facility] CenterIn the event this information is protected by the Federal Confidentiality of Alcohol and Drug Abuse Patient Records regulations: The Federal rules restrict any use of the information to criminally investigate or prosecute any alcohol or drug abuse patient.[facility] CenterIn the event this information is protected by the Federal Confidentiality of Alcohol and Drug Abuse Patient Records regulations: The Federal rules restrict any use of the information to criminally investigate or prosecute any alcohol or drug abuse patient.[facility] CenterIn the event this information is protected by the Federal Confidentiality of Alcohol and Drug Abuse Patient Records regulations: The Federal rules restrict any use of the information to criminally investigate or prosecute any alcohol or drug abuse patient.[facility] CenterIn the event this information is protected by the Federal Confidentiality of Alcohol and Drug Abuse Patient Records regulations: The Federal rules restrict any use of the information to criminally investigate or prosecute any alcohol or drug abuse patient.[facility] CenterIn the event this information is protected by the Federal Confidentiality of Alcohol and Drug Abuse Patient Records regulations: The Federal rules restrict any use of the information to criminally investigate or prosecute any alcohol or drug abuse patient.[facility] CenterIn the event this information is protected by the Federal Confidentiality of Alcohol and Drug Abuse Patient Records regulations: The Federal rules restrict any use of the information to criminally investigate or prosecute any alcohol or drug abuse patient.[facility] CenterIn the event this information is protected by the Federal Confidentiality of Alcohol and Drug Abuse Patient Records regulations: The Federal rules restrict any use of the information to criminally investigate or prosecute any alcohol or drug abuse patient.[facility] CenterIn the event this information is protected by the Federal Confidentiality of Alcohol and Drug Abuse Patient Records regulations: The Federal rules restrict any use of the information to criminally investigate or prosecute any alcohol or drug abuse patient.[facility] CenterIn the event this information is protected by the Federal Confidentiality of Alcohol and Drug Abuse Patient Records regulations: The Federal rules restrict any use of the information to criminally investigate or prosecute any alcohol or drug abuse patient.[facility] CenterIn the event this information is protected by the Federal Confidentiality of Alcohol and Drug Abuse Patient Records regulations: The Federal rules restrict any use of the information to criminally investigate or prosecute any alcohol or drug abuse patient.[facility] CenterIn the event this information is protected by the Federal Confidentiality of Alcohol and Drug Abuse Patient Records regulations: The Federal rules restrict any use of the information to criminally investigate or prosecute any alcohol or drug abuse patient.[facility] CenterIn the event this information is protected by the Federal Confidentiality of Alcohol and Drug Abuse Patient Records regulations: The Federal rules restrict any use of the information to criminally investigate or prosecute any alcohol or drug abuse patient.[facility] CenterIn the event this information is protected by the Federal Confidentiality of Alcohol and Drug Abuse Patient Records regulations: The Federal rules restrict any use of the information to criminally investigate or prosecute any alcohol or drug abuse patient.[facility] CenterIn the event this information is protected by the Federal Confidentiality of Alcohol and Drug Abuse Patient Records regulations: The Federal rules restrict any use of the information to criminally investigate or prosecute any alcohol or drug abuse patient.[facility] CenterIn the event this information is protected by the Federal Confidentiality of Alcohol and Drug Abuse Patient Records regulations: The Federal rules restrict any use of the information to criminally investigate or prosecute any alcohol or drug abuse patient.[facility] CenterIn the event this information is protected by the Federal Confidentiality of Alcohol and Drug Abuse Patient Records regulations: The Federal rules restrict any use of the information to criminally investigate or prosecute any alcohol or drug abuse patient.[facility] CenterIn the event this information is protected by the Federal Confidentiality of Alcohol and Drug Abuse Patient Records regulations: The Federal rules restrict any use of the information to criminally investigate or prosecute any alcohol or drug abuse patient.[facility] CenterIn the event this information is protected by the Federal Confidentiality of Alcohol and Drug Abuse Patient Records regulations: The Federal rules restrict any use of the information to criminally investigate or prosecute any alcohol or drug abuse patient.[facility] CenterIn the event this information is protected by the Federal Confidentiality of Alcohol and Drug Abuse Patient Records regulations: The Federal rules restrict any use of the information to criminally investigate or prosecute any alcohol or drug abuse patient.[facility] CenterIn the event this information is protected by the Federal Confidentiality of Alcohol and Drug Abuse Patient Records regulations: The Federal rules restrict any use of the information to criminally investigate or prosecute any alcohol or drug abuse patient.[facility] CenterIn the event this information is protected by the Federal Confidentiality of Alcohol and Drug Abuse Patient Records regulations: The Federal rules restrict any use of the information to criminally investigate or prosecute any alcohol or drug abuse patient.[facility] CenterIn the event this information is protected by the Federal Confidentiality of Alcohol and Drug Abuse Patient Records regulations: The Federal rules restrict any use of the information to criminally investigate or prosecute any alcohol or drug abuse patient.[facility] CenterIn the event this information is protected by the Federal Confidentiality of Alcohol and Drug Abuse Patient Records regulations: The Federal rules restrict any use of the information to criminally investigate or prosecute any alcohol or drug abuse patient.[facility] CenterIn the event this information is protected by the Federal Confidentiality of Alcohol and Drug Abuse Patient Records regulations: The Federal rules restrict any use of the information to criminally investigate or prosecute any alcohol or drug abuse patient.[facility] CenterIn the event this information is protected by the Federal Confidentiality of Alcohol and Drug Abuse Patient Records regulations: The Federal rules restrict any use of the information to criminally investigate or prosecute any alcohol or drug abuse patient.[facility] CenterIn the event this information is protected by the Federal Confidentiality of Alcohol and Drug Abuse Patient Records regulations: The Federal rules restrict any use of the information to criminally investigate or prosecute any alcohol or drug abuse patient.[facility] CenterIn the event this information is protected by the Federal Confidentiality of Alcohol and Drug Abuse Patient Records regulations: The Federal rules restrict any use of the information to criminally investigate or prosecute any alcohol or drug abuse patient.[facility] CenterIn the event this information is protected by the Federal Confidentiality of Alcohol and Drug Abuse Patient Records regulations: The Federal rules restrict any use of the information to criminally investigate or prosecute any alcohol or drug abuse patient.[facility] CenterIn the event this information is protected by the Federal Confidentiality of Alcohol and Drug Abuse Patient Records regulations: The Federal rules restrict any use of the information to criminally investigate or prosecute any alcohol or drug abuse patient.[facility] Reason for Visit (unrecogniz ed section and content) Reason Comments PT Discharge Specialty Diagnoses / Procedures Referred By Contac t Referred To Contact [facility] Diagnoses Left shoulder pain, unspecified chronicity Lateral epicondylitis of left elbow Procedures CONSULT TO PHYSICAL THERAPY PHYSICAL THERAPY EVALUATION HIGH COMPLEX 45 MINS Maycol Valladares MD [address] [place] [address] [facility] [place] [address] [place] [address] Referral ID Status Reason Start Date Expiration Date Visits Requested Visits Authorized [id number] Authorized PCP Requested Referral Auto-Generate d Referral [...] & PELVIS W/CONTRAST Alejandrina Harvey APRN.CNP [address] [place] [address] Ct Imaging Referral ID Status Reason Start Date Expiration Date V isits Requested Visits Authorized [id number] Closed Auto-Generate d Referral 10/19/2021 11/18/2022 1 [...] & PELVIS W/CONTRAST Mandeep Houser DO [address] [place] [address] [place] [address] Referral ID Status Reason Start Date Expiration Date V isits Requested Visits Authorized [id number] Closed Auto-Generate d Referral 08/22/2022 09/21/2023 1 [...] HEAD/BRAIN W/O CONTRAST MATERIAL Mandeep Houser DO [address] [place] [address] [place] [address] Referral ID Status Reason Start Date Expiration Date V isits Requested Visits Authorized [id number] Closed Auto-Generate d Referral 10/31/2023 11/29/2024 1 1 Reason Comments Appointment OMT Reason Comments Results CT Brain 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 Reason Comments Transition Of Care Reason Comments omt Reason Comments OMT Reason Comments CARD Follow Up 3 Month PMH: non-ischemic CM, HTN, Hypothyroidism, LBBB s/p RN RENAL-D Reason Comments Establish Care 5 mos follow [...] Care Teams (unrecognized sec tion and content) Acetaldehyde Converter Operator Relationship Specialty Start Date End Date Maycol Valladares MD [address] [place] [address] PCP - General Internal Medicine 06/14/20 Galen Heaton MD [address] [place] [address] Primary Staff Physician Cardiology 07/30/18 Acetaldehyde Converter Operator Relationship Specialty Start Date End Date Maycol Valladares MD [address] [place] [address] PCP - General Internal Medicine 06/14/20 Galen Heaton MD [address] [place] [address] Primary Staff Physician Cardiology 07/30/18 Acetaldehyde Converter Operator Relationship Specialty Start Date End Date Maycol Valladares MD [address] [place] [address] PCP - General Internal Medicine 06/14/20 Galen Heaton MD [address] [place] [address] Primary Staff Physician Cardiology 07/30/18 Acetaldehyde Converter Operator Relationship Specialty Start Date End Date Maycol Valladares MD [address] [place] [address] PCP - General Internal Medicine 06/14/20 Galen Heaton MD [address] [place] [place] [address] Primary Staff Physician Cardiology 07/30/18 Acetaldehyde Converter Operator Relationship Specialty Start Date End Date Mandeep Houser, DO [address] [facility] [place] [address] PCP - General Family Practice 09/01/21 Galen Heaton MD [address] [place] [address] Primary Staff Physician Cardiology 07/30/18 Acetaldehyde Converter Operator Relationship Specialty Start Date End Date Mandeep Houser, DO [address] [facility] [place] [address] PCP - General Family Practice 09/01/21 Galen Heaton MD [address] [place] [address] Primary Staff Physician Cardiology 07/30/18 Acetaldehyde Converter Operator Relationship Specialty Start Date End Date Mandeep Houser, DO [address] [facility] [place] [address] PCP - General Family Practice 09/01/21 Galen Heaton MD [address] [place] [address] Primary Staff Physician Cardiology 07/30/18 Acetaldehyde Converter Operator Relationship Specialty Start Date End Date Mandeep Houser, DO [address] [facility] [place] [address] PCP - General Family Practice 09/01/21 Galen Heaton MD [address] [place] [address] Primary Staff Physician Cardiology 07/30/18 Acetaldehyde Converter Operator Relationship Specialty Start Date End Date Maycol Valladares MD [address] [facility] [place] [address] PCP - General Internal Medicine 06/14/20 08/31/21 Mandeep Houser, DO [address] [facility] [place] [address] PCP - General Family Practice 09/01/21 Galen Heaton MD [address] [place] [address] Primary Staff Physician Cardiology 07/30/18 Acetaldehyde Converter Operator Relationship Specialty Start Date End Date Mandeep Houser, DO [address] [place] [address] PCP - General Family Practice 09/01/21 Galen Heaton MD [address] [address] Primary Staff Physician Cardiology 07/30/18 Acetaldehyde Converter Operator Relationship Specialty Start Date End Date Mandeep Houser, DO [address] [facility] [place] [address] PCP - General Family Practice 09/01/21 Galen Heaton MD [address] [facility] [address] Primary Staff Physician Cardiology 07/30/18 Acetaldehyde Converter Operator Relationship Specialty Start Date End Date Mandeep Houser, DO [address] [facility] [place] [address] PCP - General Family Practice 09/01/21 Galen Heaton MD [address] [place] [address] Primary Staff Physician Cardiology 07/30/18 Acetaldehyde Converter Operator Relationship Specialty Start Date End Date Mandeep Houser, DO [address] [facility] [place] [address] PCP - General Family Practice 09/01/21 Galen Heaton MD [address] [place] [address] Primary Staff Physician Cardiology 07/30/18 Acetaldehyde Converter Operator Relationship Specialty Start Date End Date Mandeep Houser, DO [address] [facility] [place] [address] PCP - General Family Practice 09/01/21 Galen Heaton MD [address] [place] [address] Primary Staff Physician Cardiology 07/30/18 Acetaldehyde Converter Operator Relationship Specialty Start Date End Date Mandeep Houser, DO [address] [place] [address] PCP - General Family Practice 09/01/21 Galen Heaton MD [address] [place] [address] Primary Staff Physician Cardiology 07/30/18 Acetaldehyde Converter Operator Relationship Specialty Start Date End Date Mandeep Houser, DO [address] [place] [address] PCP - General Family Practice 09/01/21 Galen Heaton MD [address] [place] [address] Primary Staff Physician Cardiology 07/30/18 Acetaldehyde Converter Operator Relationship Specialty Start Date End Date Mandeep Houser, DO [address] [place] [address] PCP - General Family Practice 09/01/21 Galen Heaton MD [address] [place] [address] Primary Staff Physician Cardiology 07/30/18 Acetaldehyde Converter Operator Relationship Specialty Start Date End Date Mandeep Houser, DO [address] [place] [address] PCP - General Family Practice 09/01/21 Galen Heaton MD [address] [place] [address] Primary Staff Physician Cardiology 07/30/18 Acetaldehyde Converter Operator Relationship Specialty Start Date End Date Mandeep Houser, DO [address] [place] [address] PCP - General Family Practice 09/01/21 Galen Heaton MD [address] [place] [address] Primary Staff Physician Cardiology 07/30/18 Acetaldehyde Converter Operator Relationship Specialty Start Date End Date Mandeep Houser, DO [address] [facility] [place] [address] PCP - General Family Practice 09/01/21 Galen Heaton MD [address] [place] [address] Primary Staff Physician Cardiology 07/30/18 Acetaldehyde Converter Operator Relationship Specialty Start Date End Date Mandeep Houser, DO [address] [facility] [place] [address] PCP - General Family Practice 09/01/21 Galen Heaton MD [address] [place] [address] Primary Staff Physician Cardiology 07/30/18 Acetaldehyde Converter Operator Relationship Specialty Start Date End Date Mandeep Houser, DO [address] [facility] [place] [address] PCP - General Family Practice 09/01/21 Galen Heaton MD [address] [place] [address] Primary Staff Physician Cardiology 07/30/18 Acetaldehyde Converter Operator Relationship Specialty Start Date End Date Mandeep Houser, DO [address] [facility] [place] [address] PCP - General Family Medicine 09/01/21 Galen Heaton MD [address] [place] [address] Primary Staff Physician Cardiology 07/30/18 Acetaldehyde Converter Operator Relationship Specialty Start Date End Date Mandeep Houser, DO [address] [facility] [place] [address] PCP - General Family Medicine 09/01/21 Galen Heaton MD [address] [place] [address] Primary Staff Physician Cardiology 07/30/18 Acetaldehyde Converter Operator Relationship Specialty Start Date End Date Mandeep Houser, DO [address] [facility] [place] [address] PCP - General Family Medicine 09/01/21 Galen Heaton MD [address] [facility] [place] [address] Primary Staff Physician Cardiology 07/30/18 Acetaldehyde Converter Operator Relationship Specialty Start Date End Date Mandeep Houser, DO [address] [facility] [place] [address] PCP - General Family Medicine 09/01/21 Galen Heaton MD [address] [facility] [place] [address] Primary Staff Physician Cardiology 07/30/18 Acetaldehyde Converter Operator Relationship Specialty Start Date End Date Mandeep Houser, DO [address] [facility] [place] [address] PCP - General Family Medicine 09/01/21 Galen Heaton MD [address] [facility] [place] [address] Primary Staff Physician Cardiology 07/30/18 Acetaldehyde Converter Operator Relationship Specialty Start Date End Date Mandeep Houser, DO [address] [facility] [place] [address] PCP - General Family Medicine 09/01/21 Galen Heaton MD [address] [place] [address] Primary Staff Physician Cardiology 07/30/18 Acetaldehyde Converter Operator Relationship Specialty Start Date End Date Mandeep Houser, DO [address] [facility] [place] [address] PCP - General Family Medicine 09/01/21 Galen Heaton MD [address] [place] [address] Primary Staff Physician Cardiology 07/30/18 Acetaldehyde Converter Operator Relationship Specialty Start Date End Date Mandeep Houser, DO [address] [facility] [place] [address] PCP - General Family Medicine 09/01/21 Galen Heaton MD [address] [place] [address] Primary Staff Physician Cardiology 07/30/18 Acetaldehyde Converter Operator Relationship Specialty Start Date End Date Mandeep Houser, DO [address] [facility] [place] [address] PCP - General Family Medicine 09/01/21 Galen Heaton MD [address] [place] [address] Primary Staff Physician Cardiology 07/30/18 Acetaldehyde Converter Operator Relationship Specialty Start Date End Date Mandeep Houser, DO [address] [facility] [place] [address] PCP - General Family Medicine 09/01/21 Galen Heaton MD [address] [place] [address] Primary Staff Physician Cardiology 07/30/18 Acetaldehyde Converter Operator Relationship Specialty Start Date End Date Mandeep Houser, DO [address] [facility] [place] [address] PCP - General Family Medicine 09/01/21 Galen Heaton MD [address] [place] [address] Primary Staff Physician Cardiology 07/30/18 Acetaldehyde Converter Operator Relationship Specialty Start Date End Date Mandeep Houser, DO [address] [facility] [place] [address] PCP - General Family Medicine 09/01/21 Galen Heaton MD [address] [place] [address] Primary Staff Physician Cardiology 07/30/18 Acetaldehyde Converter Operator Relationship Specialty Start Date End Date Mandeep Houser DO [address] [facility] [place] [address] PCP - General Family Medicine 09/01/21 Galen Heaton MD [address] [place] [address] Primary Staff Physician Cardiology 07/30/18 Acetaldehyde Converter Operator Relationship Specialty Start Date End Date Mandeep Houser DO [address] [place] [address] PCP - General Family Medicine 09/01/21 Galen Heaton MD [address] [place] [address] Primary Staff Physician Cardiology 07/30/18 Acetaldehyde Converter Operator Relationship Specialty Start Date End Date Mandeep Houser DO [address] [place] [address] PCP - General Family Medicine 09/01/21 Galen Heaton MD [address] [place] [address] Primary Staff Physician Cardiology 07/30/18 Acetaldehyde Converter Operator Relationship Specialty Start Date End Date Mandeep Houser DO [address] [place] [address] PCP - General Family Medicine 09/01/21 Galen Heaton MD [address] [place] [address] Primary Staff Physician Cardiology 07/30/18 Acetaldehyde Converter Operator Relationship Specialty Start Date End Date Mandeep Houser DO [address] [place] [address] PCP - General Family Medicine 09/01/21 Galen Heaton MD [address] [place] [address] Primary Staff Physician Cardiology 07/30/18 Acetaldehyde Converter Operator Relationship Specialty Start Date End Date Mandeep Houser DO [address] [place] [address] PCP - General Family Medicine 09/01/21 Galen Heaton MD [address] [place] [address] Primary Staff Physician Cardiology 07/30/18 Acetaldehyde Converter Operator Relationship Specialty Start Date End Date Mandeep Houser DO [address] [place] [address] PCP - General Family Medicine 09/01/21 Galen Heaton MD [address] [place] [address] Primary Staff Physician Cardiology 07/30/18 Acetaldehyde Converter Operator Relationship Specialty Start Date End Date Rafael Frank III [address] [id number] PCP - General Family Medicine 09/02/12 05/23/20 Galen Heaton MD [address] [place] [address] Primary Staff Physician Cardiology 07/30/18 Acetaldehyde Converter Operator Relationship Specialty Start Date End Date Mandeep Houser DO [address] [place] [address] PCP - General Family Medicine 09/01/21 Galen Heaton MD [address] [place] [address] Primary Staff Physician Cardiology 07/30/18 Acetaldehyde Converter Operator Relationship Specialty Start Date End Date Rafael Frank LISA [address] [phone] PCP - General Family Medicine 09/02/12 05/23/20 Galen Heaton MD [address] [place] [address] Primary Staff Physician Cardiology 07/30/18 Acetaldehyde Converter Operator Relationship Specialty Start Date End Date Mandeep Houser DO [address] [place], [place] [address] PCP - General Family Medicine 09/01/21 Galen Heaton MD [address] [place] [address] Primary Staff Physician Cardiology 07/30/18 Acetaldehyde Converter Operator Relationship Specialty Start Date End Date Mandeep Houser DO [address] [place] [address] PCP - General Family Medicine 09/01/21 Galen Heaton MD [address] [place], [place] [address] Primary Staff Physician Cardiology 07/30/18 Acetaldehyde Converter Operator Relationship Specialty Start Date End Date Mandeep Houser DO [address] [place] [address] PCP - General Family Medicine 09/01/21 Galen Heaton MD [address] [place] [address] Primary Staff Physician Cardiology 07/30/18 Acetaldehyde Converter Operator Relationship Specialty Start Date End Date Mandeep Houser DO [address] [place] [address] PCP - General Family Medicine 09/01/21 Galen Heaton MD [address] [place], [place] [phone] Primary Staff Physician Cardiology 07/30/18 Acetaldehyde Converter Operator Relationship Specialty Start Date End Date Mandeep Houser DO [address] [place] [address] PCP - General Family Medicine 09/01/21 Galen Heaton MD [address] [place] [address] Primary Staff Physician Cardiology 07/30/18 Acetaldehyde Converter Operator Relationship Specialty Start Date End Date Mandeep Houser DO [address] [place] [address] PCP - General Family Medicine 09/01/21 Galen Heaton MD [address] [place] [address] Primary Staff Physician Cardiology 07/30/18 Acetaldehyde Converter Operator Relationship Specialty Start Date End Date Mandeep Houser DO [address] [place] [address] PCP - General Family Medicine 09/01/21 Galen Heaton MD [address] [place] [address] Primary Staff Physician Cardiology 07/30/18 Acetaldehyde Converter Operator Relationship Specialty Start Date End Date Mandeep Houser DO [address] [place] [address] PCP - General Family Medicine 09/01/21 Galen Heaton MD [address] [place] [address] Primary Staff Physician Cardiology 07/30/18 Fitz Mcqueen RN [address] [place] [address] Primary Care Business Continuity Planner Internal Medicine 07/19/23 Acetaldehyde Converter Operator Relationship Specialty Start Date End Date Mandeep Houser DO [address] [place] [address] PCP - General Family Medicine 09/01/21 Galen Heaton MD [address] [place] [address] Primary Staff Physician Cardiology 07/30/18 Fitz Mcqueen RN [address] [facility] [place] [address] Primary Care Business Continuity Planner Internal Medicine 07/19/23 Acetaldehyde Converter Operator Relationship Specialty Start Date End Date Mandeep Houser DO [address] [place] [address] PCP - General Family Medicine 09/01/21 Galen Heaton MD [address] [facility] [place] [address] Primary Staff Physician Cardiology 07/30/18 Fitz Mcqueen RN [address] [place] [address] Primary Care Business Continuity Planner Internal Medicine 07/19/23 Acetaldehyde Converter Operator Relationship Specialty Start Date End Date Mandeep Houser DO [address] [place] [address] PCP - General Family Medicine 09/01/21 Galen Heaton MD [address] [facility] [place] [address] Primary Staff Physician Cardiology 07/30/18 Fitz Mcqueen RN [address] [place] [address] Primary Care Business Continuity Planner Internal Medicine 07/19/23 Acetaldehyde Converter Operator Relationship Specialty Start Date End Date Mandeep Houser DO [address] [place] [address] PCP - General Family Medicine 09/01/21 Galen Heaton MD [address] [facility] [place] [address] Primary Staff Physician Cardiology 07/30/18 Fitz Mcqueen RN [address] [place] [address] Primary Care Business Continuity Planner Internal Medicine 07/19/23 Acetaldehyde Converter Operator Relationship Specialty Start Date End Date Mandeep Houser DO [address] [place] [address] PCP - General Family Medicine 09/01/21 Galen Heaton MD [address] [place] [address] Primary Staff Physician Cardiology 07/30/18 Acetaldehyde Converter Operator Relationship Specialty Start Date End Date Mandeep Houser DO [address] [place] [address] PCP - General Family Medicine 09/01/21 Galen Heaton MD [address] [facility] [place] [address] Primary Staff Physician Cardiology 07/30/18 Acetaldehyde Converter Operator Relationship Specialty Start Date End Date Mandeep Houser DO [address] [place] [address] PCP - General Family Medicine 09/01/21 Galen Heaton MD [address] [place] [address] Primary Staff Physician Cardiology 07/30/18 Thuy Aguirre, LEASING ASSISTANT.PELLETIZER TENDER [address] [place] [address] Cardiology 09/05/23 Team Status: Active Member Role [...] ALEJANDRE Attending Provider, Referring Provider Ac tive Acetaldehyde Converter Operator Relationship Specialty Start Date End Date Mandeep Houser DO [address] [place] [address] PCP - General Family Medicine 09/01/21 Galen Heaton MD [address] [place] [address] Primary Staff Physician Cardiology 07/30/18 Thuy Aguirre, LEASING ASSISTANT.PELLETIZER TENDER [address] [place] [address] Cardiology 09/05/23 Acetaldehyde Converter Operator Relationship Specialty Start Date End Date Mandeep Houser DO [address] [place] [address] PCP - General Family Medicine 09/01/21 Galen Heaton MD [address] [place] [address] Primary Staff Physician Cardiology 07/30/18 Thuy Aguirre, LEASING ASSISTANT.PELLETIZER TENDER [address] [place] [address] Cardiology 09/05/23 Acetaldehyde Converter Operator Relationship Specialty Start Date End Date Mandeep Houser DO [address] [place] [address] PCP - General Family Medicine 09/01/21 Galen Heaton MD [address] [place] [address] Primary Staff Physician Cardiology 07/30/18 Thuy Aguirre, LEASING ASSISTANT.PELLETIZER TENDER [address] [place] [address] Cardiology 09/05/23 Acetaldehyde Converter Operator Relationship Specialty Start Date End Date Mandeep Houser DO [address] [place] [address] PCP - General Family Medicine 09/01/21 Galen Heaton MD [address] [place] [address] Primary Staff Physician Cardiology 07/30/18 Thuy Aguirre, LEASING ASSISTANT.PELLETIZER TENDER [address] [place] [address] Cardiology 09/05/23 Acetaldehyde Converter Operator Relationship Specialty Start Date End Date Mandeep Houser DO [address] [place] [address] PCP - General Family Medicine 09/01/21 Galen Heaton MD [address] [place] [address] Primary Staff Physician Cardiology 07/30/18 Thuy Aguirre, LEASING ASSISTANT.PELLETIZER TENDER [address] [place] [address] Cardiology 09/05/23 Acetaldehyde Converter Operator Relationship Specialty Start Date End Date Mandeep Houser DO [address] [place] [address] PCP - General Family Medicine 09/01/21 Galen Heaton MD [address] [place] [address] Primary Staff Physician Cardiology 07/30/18 Thuy Aguirre, LEASING ASSISTANT.PELLETIZER TENDER [address] [place] [address] Cardiology 09/05/23 Acetaldehyde Converter Operator Relationship Specialty Start Date End Date Mandeep Houser DO [address] [place] [address] PCP - General Family Medicine 09/01/21 Galen Heaton MD [address] [place] [address] Primary Staff Physician Cardiology 07/30/18 Thuy Aguirre, LEASING ASSISTANT.PELLETIZER TENDER [address] [place] [address] Cardiology 09/05/23 Acetaldehyde Converter Operator Relationship Specialty Start Date End Date Mandeep Houser DO [address] [place] [address] PCP - General Family Medicine 09/01/21 Galen Heaton MD [address] [place] [address] Primary Staff Physician Cardiology 07/30/18 Thuy Aguirre, LEASING ASSISTANT.PELLETIZER TENDER [address] [place] [address] Cardiology 09/05/23 Acetaldehyde Converter Operator Relationship Specialty Start Date End Date Mandeep Houser DO [address] [place] [address] PCP - General Family Medicine 09/01/21 Galen Heaton MD [address] [place] [address] Primary Staff Physician Cardiology 07/30/18 Thuy Aguirre, LEASING ASSISTANT.PELLETIZER TENDER [address] [place] [address] Cardiology 09/05/23 Acetaldehyde Converter Operator Relationship Specialty Start Date End Date Mandeep Houser DO [address] [place] [address] PCP - General Family Medicine 09/01/21 Galen Heaton MD [address] [place] [address] Primary Staff Physician Cardiology 07/30/18 Thuy Aguirre, LEASING ASSISTANT.PELLETIZER TENDER [address] [place] [address] Cardiology 09/05/23 Acetaldehyde Converter Operator Relationship Specialty Start Date End Date Mandeep Houser DO [address] [place] [address] PCP - General Family Medicine 09/01/21 Galen Heaton MD [address] [place] [address] Primary Staff Physician Cardiology 07/30/18 Thuy Aguirre, LEASING ASSISTANT.PELLETIZER TENDER [address] [place] [address] Cardiology 09/05/23 Acetaldehyde Converter Operator Relationship Specialty Start Date End Date Mandeep Houser DO [address] [place] [address] PCP - General Family Medicine 09/01/21 Galen Heaton MD [address] [place] [address] Primary Staff Physician Cardiology 07/30/18 Thuy Aguirre, LEASING ASSISTANT.PELLETIZER TENDER [address] [place] [address] Cardiology 09/05/23 Acetaldehyde Converter Operator Relationship Specialty Start Date End Date Mandeep Houser DO [address] [place] [address] PCP - General Family Medicine 09/01/21 Galen Heaton MD [address] [place] [address] Primary Staff Physician Cardiology 07/30/18 Thuy Aguirre, LEASING ASSISTANT.PELLETIZER TENDER [address] [place] [address] Cardiology 09/05/23 Acetaldehyde Converter Operator Relationship Specialty Start Date End Date Mandeep Houser DO [address] [place] [address] PCP - General Family Medicine 09/01/21 Galen Heaton MD [address] [place] [address] Primary Staff Physician Cardiology 07/30/18 Thuy Aguirre, LEASING ASSISTANT.PELLETIZER TENDER [address] [place] [address] Cardiology 09/05/23 Acetaldehyde Converter Operator Relationship Specialty Start Date End Date Mandeep Houser DO [address] [place] [address] PCP - General Family Medicine 09/01/21 Galen Heaton MD [address] [place] [address] Primary Staff Physician Cardiology 07/30/18 Thuy Aguirre, LEASING ASSISTANT.PELLETIZER TENDER [address] [place] [address] Cardiology 09/05/23 ProviderUvaldo MD Delinquent Notice Machine Operator 11/18/23 12/01/23 Acetaldehyde Converter Operator Relationship Specialty Start Date End Date Mandeep Houser DO [address] [place] [address] PCP - General Family Medicine 09/01/21 Galen Heaton MD [address] [place] [address] Primary Staff Physician Cardiology 07/30/18 Thuy Aguirre, LEASING ASSISTANT.PELLETIZER TENDER [address] [place] [address] Cardiology 09/05/23 Acetaldehyde Converter Operator Relationship Specialty Start Date End Date Mandeep Houser DO [address] [place] [address] PCP - General Family Medicine 09/01/21 Galen Heaton MD [address] [place] [address] Primary Staff Physician Cardiology 07/30/18 Thuy Aguirre LEASING ASSISTANT.PELLETIZER TENDER [address] [place] [address] Cardiology 09/05/23 Acetaldehyde Converter Operator Relationship Specialty Start Date End Date Mandeep Houser DO [address] [place] [address] PCP - General Family Medicine 09/01/21 Galen Heaton MD [address] [place] [address] Primary Staff Physician Cardiology 07/30/18 Thuy Aguirre, LEASING ASSISTANT.PELLETIZER TENDER [address] [place] [address] Cardiology 09/05/23 Acetaldehyde Converter Operator Relationship Specialty Start Date End Date Mandeep Houser DO [address] [place] [address] PCP - General Family Medicine 09/01/21 Galen Heaton MD [address] [place] [address] Primary Staff Physician Cardiology 07/30/18 Acetaldehyde Converter Operator Relationship Specialty Start Date End Date Mandeep Houser DO [address] [place] [address] PCP - General Family Medicine 09/01/21 Galen Heaton MD [address] [place] [address] Primary Staff Physician Cardiology 07/30/18 Thuy Aguirre, LEASING ASSISTANT.PELLETIZER TENDER [address] [place] [address] Cardiology 09/05/23 Acetaldehyde Converter Operator Relationship Specialty Start Date End Date Mandeep Houser DO [address] [place] [address] PCP - General Family Medicine 09/01/21 Galen Heaton MD [address] [place], [place] [address] Primary Staff Physician Cardiology 07/30/18 Thuy Aguirre, LEASING ASSISTANT.PELLETIZER TENDER [address] [place], [place] [address] Cardiology 09/05/23 Acetaldehyde Converter Operator Relationship Specialty Start Date End Date Mandeep Houser DO [address] [place] [address] PCP - General Family Medicine 09/01/21 Galen Heaton MD [address] [place], [place] [address] Primary Staff Physician Cardiology 07/30/18 Acetaldehyde Converter Operator Relationship Specialty Start Date End Date Mandeep Houser DO [address] [place] [address] PCP - General Family Medicine 09/01/21 Galen Heaton MD [address] [place] [address] Primary Staff Physician Cardiology 07/30/18 Thuy Aguirre, LEASING ASSISTANT.PELLETIZER TENDER [address] [place], [place] [id number] Cardiology 09/05/23 Acetaldehyde Converter Operator Relationship Specialty Start Date End Date Maycol Valladares MD [address] [place] [address] PCP - General Internal Medicine 06/14/20 08/31/21 Galen Heaton MD [address] [place] [address] Primary Staff Physician Cardiology 07/30/18 Acetaldehyde Converter Operator Relationship Specialty Start Date End Date Maycol Valladares MD [address] [place] [address] PCP - General Internal Medicine 06/14/20 08/31/21 Galen Heaton MD [address] [place] [address] Primary Staff Physician Cardiology 07/30/18 Acetaldehyde Converter Operator Relationship Specialty Start Date End Date Mandeep Houser DO [address] [place] [address] PCP - General Family Medicine 09/01/21 Galen Heaton MD [address] [place] [address] Primary Staff Physician Cardiology 07/30/18 Thuy Aguirre, LEASING ASSISTANT.PELLETIZER TENDER [address] [place] [address] Cardiology 09/05/23 Acetaldehyde Converter Operator Relationship Specialty Start Date End Date Mandeep Houser DO [address] [place] [address] PCP - General Family Medicine 09/01/21 Galen Heaton MD [address] [place] [address] Primary Staff Physician Cardiology 07/30/18 Thuy Aguirre, LEASING ASSISTANT.PELLETIZER TENDER [address] [place] [address] Cardiology 09/05/23 Acetaldehyde Converter Operator Relationship Specialty Start Date End Date Mandeep Houser DO [address] [place] [address] PCP - General Family Medicine 09/01/21 Galen Heaton MD [address] [place] [address] Primary Staff Physician Cardiology 07/30/18 Thuy Aguirre, LEASING ASSISTANT.PELLETIZER TENDER [address] [place] [address] Cardiology 09/05/23 Acetaldehyde Converter Operator Relationship Specialty Start Date End Date Mandeep Houser DO [address] [place] [address] PCP - General Family Medicine 09/01/21 Galen Heaton MD [address] [place] [address] Primary Staff Physician Cardiology 07/30/18 Thuy Aguirre, LEASING ASSISTANT.PELLETIZER TENDER [address] [place] [address] Cardiology 09/05/23 Acetaldehyde Converter Operator Relationship Specialty Start Date End Date Mandeep Houser DO [address] [place] [address] PCP - General Family Medicine 09/01/21 Galen Heaton MD [address] [place] [address] Primary Staff Physician Cardiology 07/30/18 Thuy Aguirre, LEASING ASSISTANT.PELLETIZER TENDER [address] [place] [address] Cardiology 09/05/23 Rupali Nascimento, LEASING ASSISTANT.PELLETIZER TENDER [address] [place] [address] Delinquent Notice Machine Operator Family Medicine 04/20/24 [facility], LEASING ASSISTANT.PELLETIZER TENDER [address] [place] [address] Delinquent Notice Machine Operator Family Medicine 04/20/24 Acetaldehyde Converter Operator Relationship Specialty Start Date End Date Mandeep Houser DO [address] [place] [address] PCP - General Family Medicine 09/01/21 Galen Heaton MD [address] [place] [address] Primary Staff Physician Cardiology 07/30/18 Thuy Aguirre, LEASING ASSISTANT.PELLETIZER TENDER [address] [place] [address] Cardiology 09/05/23 Rupali Nascimento, LEASING ASSISTANT.PELLETIZER TENDER [address] [place] [address] Delinquent Notice Machine Operator Family Medicine 04/20/24 [facility], LEASING ASSISTANT.PELLETIZER TENDER [address] [place] [address] Delinquent Notice Machine Operator Family Medicine 04/20/24 Acetaldehyde Converter Operator Relationship Specialty Start Date End Date Mandeep Houser DO [address] [place] [address] PCP - General Family Medicine 09/01/21 Galen Heaton MD [address] [place] [address] Primary Staff Physician Cardiology 07/30/18 Thuy Aguirre LEASING ASSISTANT.PELLETIZER TENDER [address] [place] [address] Cardiology 09/05/23 Rupali Nascimento LEASING ASSISTANT.PELLETIZER TENDER [address] [place] [address] Delinquent Notice Machine Operator Family Medicine 04/20/24 Alejandrina Harvey APRN.PELLETIZER TENDER [address] [place] [address] Delinquent Notice Machine Operator Family Medicine 04/20/24 Acetaldehyde Converter Operator Relationship Specialty Start Date End Date Mandeep Houser DO [address] [place] [address] PCP - General Family Medicine 09/01/21 Galen Heaton MD [address] [place] [address] Primary Staff Physician Cardiology 07/30/18 Thuy Aguirre LEASING ASSISTANT.PELLETIZER TENDER [address] [place] [address] Cardiology 09/05/23 Rupali Nascimento LEASING ASSISTANT.PELLETIZER TENDER [address] [place] [address] Delinquent Notice Machine Operator Family Medicine 04/20/24 Alejandrina Harvey LEASING ASSISTANT.PELLETIZER TENDER [address] [place] [address] Delinquent Notice Machine Operator Family Medicine 04/20/24 Acetaldehyde Converter Operator Relationship Specialty Start Date End Date Mandeep Houser DO [address] [place] [address] PCP - General Family Medicine 09/01/21 Galen Heaton MD [address] [place] [address] Primary Staff Physician Cardiology 07/30/18 Thuy Aguirre, LEASING ASSISTANT.PELLETIZER TENDER [address] [place], [place] [id number] Cardiology 09/05/23 Rupali Nascimento, LEASING ASSISTANT.PELLETIZER TENDER [address] [place] [address] Delinquent Notice Machine Operator Family Medicine 04/20/24 Alejandrina Harvey, LEASING ASSISTANT.PELLETIZER TENDER [address] [place] [address] Delinquent Notice Machine Operator Family [facility] 04/20/24 Acetaldehyde Converter Operator Relationship Specialty Start Date End Date Mandeep Houser DO [address] [place] [address] PCP - General Family Medicine 09/01/21 Galen Heaton MD [address] [place] [address] Primary Staff Physician Cardiology 07/30/18 Thuy Aguirre, LEASING ASSISTANT.PELLETIZER TENDER [address] [place], [place] [id number] Cardiology 09/05/23 Rupali Nascimento, LEASING ASSISTANT.PELLETIZER TENDER [address] [place] [address] [facility] 04/20/24 Alejandrina Harvey, LEASING ASSISTANT.PELLETIZER TENDER [address] [place] [address] [facility] 04/20/24 Acetaldehyde Converter Operator Relationship Specialty Start Date End Date Mandeep Houser DO [address] [place] [address] PCP - General Family Medicine 09/01/21 Galen Heaton MD [address] [place] [place], [place] [id number] Primary Staff Physician Cardiology 07/30/18 Thuy Aguirre, LEASING ASSISTANT.PELLETIZER TENDER [address] [place], [place] [id number] Cardiology 09/05/23 Rupali Nascimento, LEASING ASSISTANT.PELLETIZER TENDER [address] [place] [address] [facility] 04/20/24 Alejandrina Harvey, LEASING ASSISTANT.PELLETIZER TENDER [address] [place] [address] [facility] 04/20/24 Acetaldehyde Converter Operator Relationship Specialty Start Date End Date Mandeep Houser DO [address] [place] [address] PCP - General Family Medicine 09/01/21 Galen Heaton MD [address] [place], [place] [id number] Primary Staff Physician Cardiology 07/30/18 Thuy Aguirre, LEASING ASSISTANT.PELLETIZER TENDER [address] [place] [address] Cardiology 09/05/23 Alejandrina Harvey, LEASING ASSISTANT.PELLETIZER TENDER [address] [place] [address] [facility] 04/20/24 Acetaldehyde Converter Operator Relationship Specialty Start Date End Date Mandeep Houser DO [address] [place] [address] PCP - General Family Medicine 09/01/21 Galen Heaton MD [address] [place] [address] Primary Staff Physician Cardiology 07/30/18 Thuy Aguirre, LEASING ASSISTANT.PELLETIZER TENDER [address] [place] [address] Cardiology 09/05/23 Alejandrina Harvey, LEASING ASSISTANT.PELLETIZER TENDER [address] [place] [address] [facility] 04/20/24 Acetaldehyde Converter Operator Relationship Specialty Start Date End Date Mandeep Houser DO [address] [place] [address] PCP - General Family Medicine 09/01/21 Galen Heaton MD [address] [place] [address] Primary Staff Physician Cardiology 07/30/18 Thuy Aguirre LEASING ASSISTANT.PELLETIZER TENDER [address] [place] [address] Cardiology 09/05/23 Alejandrina Harvey, LEASING ASSISTANT.PELLETIZER TENDER [address] [place] [address] Delinquent Notice Machine Operator Family Medicine 04/20/24 Acetaldehyde Converter Operator Relationship Specialty Start Date End Date Mandeep Houser DO [address] [place] [address] PCP - General Family Medicine 09/01/21 Galen Heaton MD [address] [place] [address] Primary Staff Physician Cardiology 07/30/18 Thuy Aguirre, LEASING ASSISTANT.PELLETIZER TENDER [address] [place], [place] [id number] Cardiology 09/05/23 Alejandrina Harvey, LEASING ASSISTANT.PELLETIZER TENDER [address] [place] [address] Delinquent Notice Machine Operator [facility] Medicine 04/20/24 Acetaldehyde Converter Operator Relationship Specialty Start Date End Date Mandeep Houser DO [address] [place] [address] PCP - General Family Medicine 09/01/21 Galen Heaton MD [address] [place] [address] Primary Staff Physician Cardiology 07/30/18 Thuy Aguirre, LEASING ASSISTANT.PELLETIZER TENDER [address] [place], [place] [id number] Cardiology 09/05/23 Alejandrina Harvey, LEASING ASSISTANT.PELLETIZER TENDER [address] [place] [address] Delinquent Notice Machine Operator Family Medicine 04/20/24 Acetaldehyde Converter Operator Relationship Specialty Start Date End Date Mandeep Houser DO [address] [place] [address] PCP - General Family Medicine 09/01/21 Galen Heaton MD [address] [place] [address] Primary Staff Physician Cardiology 07/30/18 Thuy Aguirre, LEASING ASSISTANT.PELLETIZER TENDER [address] [place], [place] [id number] Cardiology 09/05/23 Alejandrina Harvey, LEASING ASSISTANT.PELLETIZER TENDER [facility] [place] [address] Delinquent Notice Machine Operator Family Medicine 04/20/24 Brittani Yap, LEASING ASSISTANT.PELLETIZER TENDER [facility] [place] [address] Delinquent Notice Machine Operator Family Medicine 10/27/24 Acetaldehyde Converter Operator Relationship Specialty Start Date End Date Mandeep Houser DO [address] [place] [address] PCP - General Family Medicine 09/01/21 Galen Heaton MD [address] [place] [address] Primary Staff Physician Cardiology 07/30/18 Thuy Aguirre LEASING ASSISTANT.PELLETIZER TENDER [address] [place], [place] [id number] Cardiology 09/05/23 Alejandrina Harvey, LEASING ASSISTANT.PELLETIZER TENDER [address] [place] [address] Delinquent Notice Machine Operator Family Medicine 04/20/24 Brittani Yap, LEASING ASSISTANT.PELLETIZER TENDER [address] [place], [place] [address] [facility] 10/27/24 Acetaldehyde Converter Operator Relationship Specialty Start Date End Date Mandeep Houser DO [address] [place] [address] PCP - General Family Medicine 09/01/21 Galen Heaton MD [address] [place] [address] Primary Staff Physician Cardiology 07/30/18 Thuy Aguirre, LEASING ASSISTANT.PELLETIZER TENDER [address] [place], [place] [id number] Cardiology 09/05/23 Alejandrina Harvey, LEASING ASSISTANT.PELLETIZER TENDER [address] [place] [address] [facility] 04/20/24 Brittani Yap, LEASING ASSISTANT.PELLETIZER TENDER [address] [place], [place] [address] [facility] 10/27/24 Team Status: Active Member Role/Relationship [...] BE BASED ON THE PRIMARY CLINICAL RECORDS. [facility] [employer] [facility]. provides no warranty or guarantee of the accuracy or completeness of information in this document.
--- OUTSIDE RECORDS SUMMARY | 2024-11-14 04:32 | XMS RPT_ITS | CCD ---
Author Organization [facility] Care Team Providers Care Waist Cutter Name Role Phone Rafael Frankolphus Unavailable Unavailab [...] Mandeep Houser DO Primary Care Provider Timothy TONGN.GEOPHYSICS SCIENTIST, Thuy Serrato Unavailable [phone] FLACA [place] Attending Unavailable HOUSER, MANDEEP L [...] Maycol Valladares MD Primary Care Provider [phone] Azam ATHLETIC SCOUT.GEOPHYSICS SCIENTIST, Rupali Adelina Unavailable Yasir ATHLETIC SCOUT.GEOPHYSICS SCIENTIST, Alejandrina Unavailable ZAINAB, CH Referring Unavailable Houser, [...] Care Unavailable ZAINAB, CH Attending Unavailable Marely ATHLETIC SCOUT.GEOPHYSICS SCIENTIST, Brittani Ji Unavailable [phone] HOUSER, MANDEEP [...] Care Unavailable HOUSER, MANDEEP Attending Unavailable HOUSER, MADNEEP Primary Care Unavailable HOUSER, MANDEEP Referring Unavailable [...] HouserDr. Mandeep padilla DO Primary Care Provider [phone] Yusuf BRYAN, Dr. Garcia Emergency Provider Allergies Allergy Classification Reported Allergen(s) Allergy Type Date of Onset Reaction(s) Facility amLODIPine (2 sources) amLODIPine Drug Allergy 0 Intolerance [facility] Amoxicillin / Clavulanate (2 sources) Amoxicillin / Clavulanate Drug Allergy 3 GI Upset [facility] HMG-CoA Reductase Inhibitors (statins) (2 sources) atorvastatin Drug Allergy 0 Myalgia [facility] Opioid Agonists (2 sources) Codeine Drug Allergy 3 Mental Status Change [facility] Work Phone: Sulfonamides (antibiotic) (2 sources) Sulfonamides (Antibiotic) Drug Allergy 0 Intolerance [facility] (20 sources) amLODIPine; Translations: [AMLODIPINE] Drug Allergy 0 Other: See Comments, Intolerance [facility] (2 sources) Amoxicillin / Clavulanate Drug Allergy [facility] Work Phone: (20 sources) Codeine; Translations: [CODEINE] Drug Allergy 3 Dizziness, Mental Status Change [facility] Work Phone: (2 sources) Sulfonamides (Antibiotic) Allergy to drug (finding) Headache [facility] Work Phone: (20 sources) Amoxicillin / Clavulanate; Translations: [AMOXICILLIN-POT CLAVULANATE] Drug Allergy 3 GI Upset [facility] (20 sources) Angiotensin-conve rting enzyme inhibitor agent; Translations: [EMILIO INHIBITORS] Drug Allergy 0 Other: See Comments [facility] (20 sources) atorvastatin; Translations: [ATORVASTATIN] Drug Allergy 0 Myalgia [facility] (20 sources) beta-Blocking agent; Translations: [BETA-BLOCKERS (BETA-ADRENERGIC BLOCKING AGTS)] Drug Allergy 0 Other: See Comments [facility] (20 sources) Sulfonamides (Antibiotic); Translations: [SULFA (SULFONAMIDE ANTIBIOTICS)] Drug Allergy 0 Other: See Comments, Intolerance [facility] (20 sources) Angiotensin-conve rting enzyme inhibitor agent Drug Allergy 0 Other: See Comments, Intolerance [facility] (20 sources) beta-Blocking agent Drug Allergy 0 Other: See Comments, Intolerance [facility] (20 sources) sacubitril / valsartan; Translations: [SACUBITRIL-VALSA RTAN] Drug Allergy 4 Intolerance [facility] (1 source) Amoxicillin Drug Allergy 4 [facility] Rep[facility] (1 source) Clavulanate Drug Allergy 4 [facility] Rep[facility] (1 source) Amoxicillin Drug Allergy 5 PT UNSURE OF REACTION [facility] (1 source) Clavulanate Drug Allergy 5 PT UNSURE OF REACTION [facility] Medications Current Medications Medication Drug Class(es) [...] as needed. Take 2 tablets by mo [facility] every 8 hours as needed for pain. [...] on above: Take 1 capsule by mo [facility] three times daily as needed for cough. [...] 1 tablet by jc th once daily. Marcus-3 Fatty Acids-Vitamin E (FISH OIL) 1,000 mg cap (1 source) End: 04-30-20 take 1 capsule by mouth once daily Marcus-3 Fatty Acids-Vitamin E (FISH OIL) 1,000 mg cap Take 1 capsule by mouth once daily. 0 04/30/2020 Discontinued Comment on above: Take 1 capsule by mo [facility] once daily. omeprazole 20 mg delayed release [...] End: 07-13-2023 OREGANO OIL ORAL Take by [facility] once daily. 0 07/13/2023 Discontinued OREGANO [...] mg tablet Indications: 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 with other form of angina pectoris [...] Coronary atherosclerosis; Translations: [Atherosclerotic heart disease of alutiiq coronary artery with other forms of angina [...] 08-02-2022 Chronic Other aftercare (1 source) Other snf (current) drug therapy; Translations: [Medication management] Onset: [...] Auto (Unsp spec) [#/Vol] 2.58 10*3/uL 0.83-4.51 [facility] Absolute neutrophil countOrd ered By: Jose Goldberg on 11-13-2024 Neutrophils (Bld) [#/Vol] 5.9 10*3/uL 2.0-7.7 [facility] Anion gap in Serum or Plasma Ordered By: Jose Goldberg on 11-13-2024 Anion gap [Moles/Vol] 12 mmol/L 5-[address] [facility] Automated lymphocyte count a s percentage of total leukocytesOrdered By: Jose Goldberg on 11-13-2024 Lymphocytes/100 WBC Auto (Unsp spec) 26.8 % 19-41 [facility] BUN/creatinine ratioOrdered By: Jose Goldberg on 11-13-2024 Urea nitrogen/Creatinine [Mass ratio] 22.8 mg/mg High 10-20 [facility] Basophil percentageOrdered B y: Jose Goldberg on 11-13-2024 Basophils/100 WBC (Bld) 1.0 % 0-1 [facility] Bilirubin Test strip Ql (U)O rdered By: Jose Goldberg on 11-13-2024 Bilirubin Ql (U) Negative Negative [facility] CBC + diff autoon 11-13-2024 CBC W Auto Differential panel (Bld) [facility] Carbon dioxide, total [Moles /volume] in Central venous bloodOrdered By: Jose Goldberg on 11-13-2024 CO2 [Moles/Vol] 20.2 mmol/L Low 21.0-32.0 [facility] Chloride assayOrdered By: Skyla Goldberg on 11-13-2024 Chloride [Moles/Vol] 107 mmol/L 98-108 [facility] Eosinophil percentageOrdered By: Jose Goldberg on 11-13-2024 Eosinophils/100 WBC (Bld) 1.3 % 0-5 [facility] Erythrocyte distribution wid th ratioOrdered By: Jose Goldberg on 11-13-2024 Erythrocyte distribution width (RBC) [Ratio] 13.8 % 11.6-14.6 [facility] Erythrocyte distribution wid th standard deviationOrdered By: Jose Goldberg on 11-13-2024 Erythrocyte distribution width (RBC) [Ratio] 45.6 fl High 35.1-43.9 [facility] Glomerular filtration rate ( GFR) estimation/1.73 sq m using serum, plasma, or whole bOrdered By: Jose Goldberg on 11-13-2024 GFR/1.73 sq M.predicted among non-blacks MDRD (S/P/Bld) [Vol rate/Area] 61 mL/min/{1.73_m2} >60 [facility] Comment on above: mL/min/1.73m2 CKD-EP I Creatinine Equation (2020) Hematocrit Auto (Bld) [Volum e fraction]Ordered By: Jose Goldberg on 11-13-2024 Hematocrit (Bld) [Volume fraction] 37.5 % 37-47 [facility] Hemoglobin measurementOrdere d By: Jose Goldberg on 11-13-2024 Hemoglobin (Bld) [Mass/Vol] 12.1 g/dL 12.0-15.0 [facility] Immature granulocytes/100 WB C Auto (Bld)Ordered By: Jose Goldberg on 11-13-2024 Immature granulocytes/100 WBC (Bld) 0.700 % 0.0-0.9 [facility] Comment on above: IG% - Immature Granu locytes (promyelocytes, myelocytes and metamyelocytes) > 1% indicates that a LEFT SHIFT is Present. Ketones Test strip Ql (U)Ord ered By: Jose Goldberg on 11-13-2024 Ketones Ql (U) Negative Negative [facility] MCV (mean corpuscular volume ) determinationOrdered By: Jose Goldberg on 11-13-2024 MCV (RBC) [Entitic vol] 90.1 fL 81-99 [facility] Mean corpuscular hemoglobin (MCH) determinationOrdered By: Jose Goldberg on 11-13-2024 MCH (RBC) [Entitic mass] 29.1 pg 27.0-32.0 [facility] Mean corpuscular hemoglobin concentration (MCHC) determinationOrdered By: Jose Goldberg on 11-13-2024 MCHC (RBC) [Mass/Vol] 32.3 g/dL 32-[address] [facility] Mean platelet volume determi nationOrdered By: Jose Goldberg on 11-13-2024 Platelet mean volume (Bld) [Entitic vol] 9.7 fL 6.2-12.0 [facility] Microscopic analysis of urin e for red blood cells (RBC)Ordered By: Jose Goldberg on 11-13-2024 Microscopic analysis of urine for red blood cells (RBC) 0 SEEN /hpf 0-5 [facility] Monocyte percentageOrdered B y: Jose Goldberg on 11-13-2024 Monocytes/100 WBC (Bld) 8.8 % 0-10 [facility] Mucus LM Ql (Urine sed)Order ed By: Jose Goldberg on 11-13-2024 Mucus Ql (Urine sed) 0 SEEN /hpf [facility] Neutrophil percentageOrdered By: Jose Goldberg on 11-13-2024 Neutrophils/100 WBC (Bld) 61.4 % 47-70 [facility] Nitrite Test strip Ql (U)Ord ered By: Jose Goldberg on 11-13-2024 Nitrite Ql (U) Negative Negative [facility] Nucleated red blood cell per centageOrdered By: Jose Goldberg on 11-13-2024 Nucleated RBC/100 WBC (Bld) [Ratio] 0 % 0-5 [facility] Platelet countOrdered By: Skyla Goldberg on 11-13-2024 Platelets (Bld) [#/Vol] 295 10*3/uL 150-450 [facility] Potassium measurement (mass/ volume)Ordered By: Jose Goldberg on 11-13-2024 Potassium (Unsp spec) [Mass/Vol] 4.3 mmol/L 3.3-5.1 [facility] Comment on above: Hemolysis present, R esults could be affected. Protein Test strip Ql (U)Ord ered By: Jose Goldberg on 11-13-2024 Protein Ql (U) 15 mg/dl High Negative [facility] RBC Auto (Bld) [#/Vol]Ordere d By: Jose Goldberg on 11-13-2024 RBC (Bld) [#/Vol] 4.16 10*6/uL Low 4.2-5.4 [facility] Serum creatinine measurement (mass/volume)Ordered By: Jose Goldberg on 11-13-2024 Creatinine [Mass/Vol] 0.96 mg/dL 0.70-1.[address] [facility] Serum glucose measurement (m ass/volume)Ordered By: Jose Goldberg on 11-13-2024 Glucose [Mass/Vol] 122 mg/dL High 70-99 [facility] Serum or plasma calcium franklin urement (mass/volume)Ordered By: Jose Goldberg on 11-13-2024 Calcium [Mass/Vol] 9.3 mg/dL 7.6-11.0 [facility] Serum or plasma urea nitroge n measurement (mass/volume)Ordered By: Jose Goldberg on 11-13-2024 Urea nitrogen [Mass/Vol] 22 mg/dL High 4-19 [facility] Sodium levelOrdered By: Jermaine Goldberg on 11-13-2024 Sodium [Moles/Vol] 139 mmol/L 133-145 [facility] Squamous epithelial cells de tection in urine sediment by light microscopyOrdered By: Jose Goldberg on 11-13-2024 Epithelial cells.squamous LM Ql (Urine sed) 5-10 SEEN /hpf 5-10 [facility] Urine clarityOrdered By: Inna Goldberg on 11-13-2024 Clarity (U) Clear Clear [facility] Urine color determinationOrd ered By: Jose Goldberg on 11-13-2024 Color (U) Yellow Yellow [facility] Urine glucose detectionOrder ed By: Jose Goldberg on 11-13-2024 Glucose Ql (U) Normal mg/dl Normal [facility] Urine leukocyte esterase det ection by dipstickOrdered By: Jose Goldberg on 11-13-2024 Leukocyte esterase Test strip Ql (U) Negative Negative [facility] Urine pHOrdered By: Jose Goldberg on 11-13-2024 pH (U) 6.5 [pH] 5.0 - 8.0 [facility] Urine sediment bacteria coun t by microscopy (number/high power field)Ordered By: Jose Goldberg on 11-13-2024 Bacteria LM.HPF (Urine sed) [#/Area] RARE /hpf None Seen [facility] Urine specific gravity measu rementOrdered By: Jose Goldberg on 11-13-2024 Specific gravity (U) [Rel density] 1.010 1.002-1.030 [facility] Urine urobilinogen measureme ntOrdered By: Jose Goldberg on 11-13-2024 Urobilinogen Ql (U) Normal mg/dl Normal [facility] White blood cell (WBC) count Ordered By: Jose Goldberg on 11-13-2024 WBC (Bld) [#/Vol] 9.6 10*3/uL 4.4-11.0 [facility] White blood cell countOrdere d By: Jose Goldberg on 11-13-2024 White blood cell count 0-5 SEEN /hpf 0-5 [facility] ECG COMPLETEon 11-04-2024 Atrial Rate 63 BPM [facility] Calculated P [place] 16 degrees [facility] Calculated R [place] -81 degrees [facility] Calculated T [place] 24 degrees [facility] P-R Interval 118 ms [facility] QRS Duration 118 ms [facility] QT Interval 452 ms [facility] QTC Calculation (Bazett) 462 ms [facility] Ventricular Rate 63 BPM [facility] ATRIAL-SENSED VENTRICULAR-PACED RHYTHM WITH OCCASIONAL SINUS COMPLEXES ABNORMAL ECG Confirmed by GREGORIA MERCADO MD ([id number]) on 11/04/2024 1:01:22 PM [facility] NAME : SANDRA SCHMITZ PID : [id number] : 1945 Gender : Female Race : ORD : [id number] Procedure Date : Nov 03 2024 14:14:06 Edit Date : Nov 04 2024 13:01:29 Diagnosis: ATRIAL-SENSED VENTRICULAR-PACED RHYTHM WITH OCCASIONAL SINUS COMPLEXES ABNORMAL ECG Confirmed by GREGORIA MERCADO MD ([id number]) on 11/04/2024 1:01:22 PM Test Reason : I42.8 Nonischemic cardiomyopathy (HCC) Location : 225 : [facility] Overread By : GREGORIA MERCADO MD Edited By : GREGORIA MERCADO MD Referred By : DEANN Acquired by : LISANDRO, [facility] CNOVon 11-03-2024 CNOV Office Visit (CARDFV ) ----- SANDRA SCHMITZ ([id number]) 1945 F Date Time Provider Department 11/03/24 3:45 PM HOLTER/EVENT MONITOR EDENILSON WALLACE During your visit today, we recorded the following information about you: Dilcia Hooks MA 11/03/2024 3:58 PM Signed EVENT MONITOR DISPOSABLE PATCH INSTRUCTIONS Patient Name: Sandra Schmitz [facility] Number: [id number] Skin prepped and cleansed with alcohol Patch secured to prepped area Monitor Activated Serial #: [id number] Patient Instructed: Prescribed order timeframe Bathing guidelines Usage of event button and diary documentation Return of monitor at the end of prescribed order Call with problems [phone] or [phone]. [phone] Patient expresses a good understanding of instructions [...] Assessed Primary Visit Diagnosis:Cardiac resynchronization therapy defibrillator (ASSISTANT CENTER MANAGER-D) in place [Z95.810] Prescriptions as of 11/03/2024 [...] right [M19.071] 08/02/2022 Coronary artery disease involving alutiiq lopez*08/02/2022 Vitamin D deficiency [E55.9] 08/02/2022 Somatic dysfunction of head region [M99.00] 08/10/2022 Chronic neck pain [M54.2, G89.29] 08/24/2022 Chronic bronchitis (HCC) [J42] 09/11/2022 SVT (supraventricular tachycardia) (HCC) [I47.1*09/11/2022 Combined systolic and diastoli (more content not included)... Normal [facility] CNOV Office Visit (CACHFV ) ----- SANDRA SCHMITZ ([id number]) 1945 F Date Time Provider Department 11/03/24 [...] and weight daily. Please notify us via Sr.Pago if your Systolic BP (top number) < [...] heart kidney injury risk Please send a [employer] message or call with any questions or concerns: Outpatient Number: [phone] Thank you, Pili Wells MD [facility] [place] [address] For [facility] patients , contact: [facility]- Section Of Heart Failure and Cardiac Transplant Medicine [facility] [place] [facility] - Desk [phone] Nurse Line and for Refills- call [phone] [facility] Scheduling Line- to make appointments- call [phone] Pili Wells MD 11/09/2024 5:30 PM Signed [facility] [place] [facility] SECTION OF HEART FAILURE and CARDIAC TRANSPLANT MEDICINE [facility] OUTPATIENT VISIT DATE November 03, 2024 OUTPATIENT VISIT TYPE Established PRIMARY CARE PHYSICIAN: Mandeep Houser [address] [place] [address] CHIEF COMPLAINT: Follow Up HISTORY OF PRESENT ILLNESS: Sandra Schmitz is a 78 year old female with a medical history that includes non-ischemic CM, HTN, Hypothyroidism, LBBB s/p ASSISTANT CENTER MANAGER-D who is referred to me for heart failure management. Sandra Schmitz was initially diagnosed with non-ischemic CM ~ 4 yrs ago and was doing well on losartan and metoprolol. She had progressive sxs of dyspnea on exertion, therefore she was started on entresto and farxiga and her sxs persisted and she was admitted locally in [place] and then transferred to for ASSISTANT CENTER MANAGER consideration. Interval History: Sandra Schmitz was last [...] LVEF 40%, LVEdd 4.8cm. LBBB: chronic. S/p ASSISTANT CENTER MANAGER 07/2023 Non-obstructive CAD: stable, ischemic testing recently [...] CHF (c (more content not included)... Normal [facility] CNOV Office Visit (CARDFV ) ----- SANDRA SCHMITZ ([id number]) 1945 F Date Time Provider Department 11/03/24 3:30 PM MORENITA [facility] During your visit today, we recorded the following information about you: Pulse Blood pressure Weight Height 70/minute 119/71 86.2 kg 1.626 m Morenita Hill APRN.GEOPHYSICS SCIENTIST 11/03/2024 3:59 PM Signed [facility] [place] [facility] Department of Cardiovascular Medicine SECTION OF ELECTROPHYSIOLOGY AND PACING OUTPATIENT VISIT DATE November 03, 2024 OUTPATIENT VISIT TYPE ESTABLISHED PRIMARY CARE PHYSICIAN: Mandeep Houser [address] [place] [address] CHIEF COMPLAINT: Follow Up HISTORY OF PRESENT ILLNESS: Ms. Schmitz is a 79 year old female, patient of Dr. Wellington and Dr. Wells who presents today for a cardiovascular medicine follow-up visit regarding ASSISTANT CENTER MANAGER-D which was placed in July of last year during which time she had been admitted to [facility] for acute HFrEF and inability to initiate GDMT. She was deemed excellent candidate for ASSISTANT CENTER MANAGER therapy and thus had MDT ASSISTANT CENTER MANAGER-D inserted. Since then, Ms. Schmitz reports that overall she has been feeling well. She has noted over the last several months that when shh is anxious or rushing, she may feel her heart racing with some palpitations. When she rests, symptoms resolve. Overall, since device insertion, she has significantly improved functional capacity. She is compliant with all medications. PMH: Chronic NICM s/p MDT ASSISTANT CENTER MANAGER-D, dyslipidemia, hypothyroidism, Factor V Leiden, IBS, h/o gout PAST MEDICAL HISTORY Diagnosis Date Acute acalculous cholecystitis 05/30/2020 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 09/22/2020 Acute on chronic systolic CHF (congestive heart failure) ([facility]) 05/03/2020 Aspiration pneumonia ([facility]) 05/30/2020 Chest pain 05/03/2020 Chest pressure 01/23/2013 Chronic diastolic congestive heart failure ([facility]) 02/14/2021 Clostridium difficile diarrhea 09/28/2020 Complete uterovaginal prolapse Cystocele, midline Essential hypertension 06/14/2020 Homozygous Factor V Leiden mutation ([facility]) 05/03/2020 Hypothyroidism IBS (irritable [...] once daily (more content not included)... Normal [facility] ECG COMPLETEon 11-03-2024 ECG COMPLETE Ventricular Rate : 5 6 BPM Atrial Rate : 56 BPM P-R Interval : 122 ms QRS Duration : 124 ms Q-T Interval : 478 ms QTC Calculation(Bazett) : 461 ms Calculated P [place] : 36 degrees Calculated R [place] : -50 degrees Calculated T [place] : 89 degrees ATRIAL-SENSED VENTRICULAR-PACED RHYTHM ABNORMAL ECG Confirmed by GREGORIA MERCADO MD ([id number]) on 11/04/2024 1:01:15 PM NAME : SANDRA SCHMITZ PID : [id number] : 1945 Gender : Female Race : ORD : [id number] Procedure Date : Nov 03 2024 15:09:38 Edit Date : Nov 04 2024 13:01:17 Diagnosis: ATRIAL-SENSED VENTRICULAR-PACED RHYTHM ABNORMAL ECG Confirmed by GREGORIA MERCADO MD ([id number]) on 11/04/2024 1:01:15 PM Test Reason : Z95.810 Cardiac resynchronization therapy defibrillator (ASSISTANT CENTER MANAGER-D) in place Location : 225 : [facility] Overread By : GREGORIA MERCADO MD Edited By : GREGORIA MERCADO MD Referred By : JERED Acquired by : Terrie GRANT [facility] ECG COMPLETE Ventricular Rate : 6 3 BPM Atrial Rate : 63 BPM P-R Interval : 118 ms QRS Duration : 118 ms Q-T Interval : 452 ms QTC Calculation(Bazett) : 462 ms Calculated P [place] : 16 degrees Calculated R [place] : -81 degrees Calculated T [place] : 24 degrees ATRIAL-SENSED VENTRICULAR-PACED RHYTHM WITH OCCASIONAL SINUS COMPLEXES ABNORMAL ECG Confirmed by GREGORIA MERCADO MD ([id number]) on 11/04/2024 1:01:22 PM NAME : SANDRA SCHMITZ PID : [id number] : 1945 Gender : Female Race : ORD : [id number] Procedure Date : Nov 03 2024 14:14:06 [...] : DEANN Acquired by : Terrie MCMAHON [facility] CNOVon 10-21-2024 CNOV Office Visit (FAMPWS ) ----- SANDRA SCHMITZ ([id number]) 1945 F Date Time Provider Department 10/21/24 [...] on chronic systolic CHF (congestive heart failure) ([facility]) 05/03/2020 Aspiration pneumonia ([facility]) 05/30/2020 Chest pain 05/03/2020 Chest pressure 01/23/2013 Chronic diastolic congestive heart failure ([facility]) 02/14/2021 Clostridium difficile diarrhea 09/28/2020 Complete uterovaginal prolapse Cystocele, midline Essential hypertension 06/14/2020 Homozygous Factor V Leiden mutation ([facility]) 05/03/2020 Hypothyroidism IBS (irritable [...] without drainage, (more content not included)... Normal [facility] CNOVon 09-30-2024 CNOV Office Visit (FAMPWS ) ----- SANDRA SCHMITZ ([id number]) 1945 F Date Time Provider Department 09/30/24 [...] on chronic systolic CHF (congestive heart failure) ([facility]) 05/03/2020 Aspiration pneumonia ([facility]) 05/30/2020 Chest pain 05/03/2020 Chest pressure 01/23/2013 Chronic diastolic congestive heart failure ([facility]) 02/14/2021 Clostridium difficile diarrhea 09/28/2020 Complete uterovaginal prolapse Cystocele, midline Essential hypertension 06/14/2020 Homozygous Factor V Leiden mutation ([facility]) 05/03/2020 Hypothyroidism IBS (irritable [...] Left poste (more content not included)... Normal [facility] CNPNon 08-27-2024 CNPN Telephone ([facility]) ----- SANDRA SCHMITZ ([id number]) 1945 F Date Time Provider Department 08/27/24 DILCIA PEARSON [facility] During your visit today, we recorded the following information about you: Radha Buchanan 08/27/2024 10:21 AM Signed ----- Message from Dilcia Bonilla MD sent at 08/23/2024 9:30 AM EDT ----- I saw her in '24 Please reschedule with Mercedes + device Radha Buchanan 08/27/2024 10:22 AM Signed Call to patient to r/s. Patient is driving out from [employer] and would prefer all appointments same day [...] right [M19.071] 08/02/2022 Coronary artery disease involving alutiiq lopez*08/02/2022 Vitamin D deficiency [E55.9] 08/02/2022 Somatic [...] (HCC) [J96.01]07/13/19 (more content not included)... Normal [facility] CNOVon 08-25-2024 CNOV Office Visit (FAMPWS ) ----- SANRDA SCHMITZ ([id number]) 1945 F Date Time Provider Department 08/25/24 [...] on chronic systolic CHF (congestive heart failure) ([facility]) 05/03/2020 Aspiration pneumonia ([facility]) 05/30/2020 Chest pain 05/03/2020 Chest pressure 01/23/2013 Chronic diastolic congestive heart failure ([facility]) 02/14/2021 Clostridium difficile diarrhea 09/28/2020 Complete uterovaginal prolapse Cystocele, midline Essential hypertension 06/14/2020 Homozygous Factor V Leiden mutation ([facility]) 05/03/2020 Hypothyroidism IBS (irritable [...] cervical L (more content not included)... Normal [facility] ECHOon 08-15-2024 Echocardiography Echocardiography Rep ort: Transthoracic Echo [facility] Date of service: 08/15/2024 12:49:59 PM SCREEN WORKER Ordering physician: ANGEL CASTRO Indication: NICM Technologist: Teagan Murillo [facility] Interpreting physician: Gilmer Carpio MD PATIENT: [...] * * Final * * * CC [facility] Image : [id number] Normal [facility] CNOVon 08-04-2024 CNOV Office Visit (FAMPWS ) ----- SANDRA SCHMITZ ([id number]) 1945 F Date Time Provider Department 08/04/24 2:00 PM [facility] During your visit today, we recorded [...] L1-2NRrSBr left (more content not included)... Normal [facility] CNOVon 07-21-2024 CNOV Office Visit (FAMPWS ) ----- SANDRA SCHMITZ ([id number]) 1945 F Date Time Provider Department 07/21/24 [...] October Would like to have her medical regulatory affairs manager more local for better accessibility She had labs and a chest xray Currently Cough, chest congestion, symptoms are improved. Just still with some fatigue but seems to be getting better. No further cough, no sputum production, no fevers or chills. Heart failure. Has an echo to get scheduled and completed for the regulatory affairs manager, taking her medications as prescribed. PAST MEDICAL HISTORY Diagnosis Date Acute acalculous cholecystitis 05/30/2020 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 09/22/2020 Acute on chronic systolic CHF (congestive heart failure) ([facility]) 05/03/2020 Aspiration pneumonia ([facility]) 05/30/2020 Chest pain 05/03/2020 [...] tobacco: Never (more content not included)... Normal [facility] 25(OH)D3 SerPl-mCncon 2024 25-hydroxyvitamin D3 [Mass/Vol] 26.0 ng/mL Low 31.0-80.0 [facility] Comment on above: Order Comment: Speci men Type: BLOOD SPECIMENOrdering Facility: [facility] Address: [address] [place] [address] Performed By: #### 1 989-3 ####[facility] LABIA [id number] [address] [place] Bacteria Ur Culton Bacteria identified Cx Nom (U) ORGANISM ID: 1 50,000-<100,000 CFU/ml Normal urogenital kash Normal [facility] Comment on above: Performed By: #### 6 30-4 ####[facility] LABCLIA [id number] [address] [place] CBC W Auto Differential pane l (Bld)on 07-08-2024 Basophils (Bld) [#/Vol] 0.12 10*3/uL High [facility] Basophils/100 WBC (Bld) 1.4 % [facility] Differential cell count method Nom (Bld) Auto [facility] Eosinophils (Bld) [#/Vol] 0.16 10*3/uL [facility] Eosinophils/100 WBC (Bld) 1.8 % [facility] Erythrocyte distribution width (RBC) [Ratio] 14.5 % 11.5 - 15.0 % [facility] Hematocrit (Bld) [Volume fraction] 43.4 % 36.0 - 46.0 % [facility] Hemoglobin (Bld) [Mass/Vol] 13.6 g/dL 11.5 - 15.5 g/dL [facility] Immature granulocytes (Bld) [#/Vol] 0.08 10*3/uL [facility] Immature granulocytes/100 WBC (Bld) 0.9 % [facility] Interpretation and review of laboratory results Abnormal [facility] Lymphocytes (Bld) [#/Vol] 3.59 10*3/uL [facility] Lymphocytes/100 WBC (Bld) 40.5 % [facility] MCH (RBC) [Entitic mass] 28.7 pg 26.0 - 34.0 pg [facility] MCHC (RBC) [Mass/Vol] 31.3 g/dL 30.5 - 36.0 g/dL [facility] MCV (RBC) [Entitic vol] 91.6 fL 80.0 - 100.0 fL [facility] Monocytes (Bld) [#/Vol] 0.81 10*3/uL NINF [facility] Monocytes/100 WBC (Bld) 9.1 % [facility] Neutrophils (Bld) [#/Vol] 4.11 10*3/uL [facility] Neutrophils/100 WBC (Bld) 46.3 % [facility] Nucleated RBC (Bld) [#/Vol] NINF [facility] Nucleated RBC/100 WBC (Bld) [Ratio] 0 % /100 WBC [facility] Platelet mean volume (Bld) [Entitic vol] 10.7 fL 9.0 - 12.7 fL [facility] Platelets (Bld) [#/Vol] 430 10*3/uL High [facility] RBC (Bld) [#/Vol] 4.74 10*6/uL 3.90 - 5.2 0 m/uL [facility] WBC (Bld) [#/Vol] 8.87 10*3/uL [facility] Basophils (Bld) [#/Vol] 0.12 10*3/uL High <0.11 [facility] Comment on above: Order Comment: Speci men Type: BLOOD SPECIMENOrdering Facility: [facility] Address: [address] [place] [address] Performed By: #### 5 7021-8 ####[facility] LABORATORYCLIA [id number] [address] STATES [place] [facility] Basophils/100 WBC (Bld) 1.4 % Normal [facility] Comment on above: Order Comment: Speci men Type: BLOOD SPECIMENOrdering Facility: [facility] Address: [address] [place] [address] Performed By: #### 5 7021-8 ####[facility] LABORATORYCLIA [id number] [address] Differential cell count method Nom (Bld) Auto Normal [facility] Comment on above: Order Comment: Speci men Type: BLOOD SPECIMENOrdering Facility: [facility] Address: [address] [place] [address] Performed By: #### 5 7021-8 ####[facility] LABORATORYCLIA [id number] [address] [place] Eosinophils (Bld) [#/Vol] 0.16 10*3/uL Normal <0.46 [facility] Comment on above: Order Comment: Speci men Type: BLOOD SPECIMENOrdering Facility: [facility] Address: [address] [place] [address] Performed By: #### 5 7021-8 ####[facility] LABORATORYCLIA [id number] [address] STATES [facility] Eosinophils/100 WBC (Bld) 1.8 % Normal [facility] Comment on above: Order Comment: Speci men Type: BLOOD SPECIMENOrdering Facility: [facility] Address: [address] [place] [address] Performed By: #### 5 7021-8 ####[facility] LABORATORYCLIA [id number] [address] Erythrocyte distribution width (RBC) [Ratio] 14.5 % Normal 11.5-15.0 [facility] Comment on above: Order Comment: Speci men Type: BLOOD SPECIMENOrdering Facility: [facility] Address: [address] [place] [address] Performed By: #### 5 7021-8 ####[facility] LABORATORYCLIA [id number] [address] Hematocrit (Bld) [Volume fraction] 43.4 % Normal 36.0-46.0 [facility] Comment on above: Order Comment: Speci men Type: BLOOD SPECIMENOrdering Facility: [facility] Address: [address] [place] [address] Performed By: #### 5 7021-8 ####[facility]ORATORYCLIA [id number] [place] [id number] [place] Hemoglobin (Bld) [Mass/Vol] 13.6 g/dL Normal 11.5-15.5 [facility] Comment on above: Order Comment: Speci men Type: BLOOD SPECIMENOrdering Facility: [facility] Address: [address] [place] [address] Performed By: #### 5 7021-8 ####[facility]ORATORYCLIA [id number] [place] [id number] [place] Immature granulocytes (Bld) [#/Vol] 0.08 10*3/uL Normal <0.10 [facility] Comment on above: Order Comment: Speci men Type: BLOOD SPECIMENOrdering Facility: [facility] Address: [address] [place] [address] Performed By: #### 5 7021-8 ####[facility] LABORATORYCLIA [id number] [place] [address] [place] Immature granulocytes/100 WBC (Bld) 0.9 % Normal [facility] Comment on above: Order Comment: Speci men Type: BLOOD SPECIMENOrdering Facility: [facility] Address: [address] [place] [address] Performed By: #### 5 7021-8 ####[facility]ORATORYCLIA [id number] [place] [id number] [place] Lymphocytes (Bld) [#/Vol] 3.59 10*3/uL Normal 1.00-4.00 [facility] Comment on above: Order Comment: Speci men Type: BLOOD SPECIMENOrdering Facility: [facility] Address: [address] [place] [address] Performed By: #### 5 7021-8 ####[facility]ORATORYCLIA [id number] [place] [id number] [place] Lymphocytes/100 WBC (Bld) 40.5 % Normal [facility] Comment on above: Order Comment: Speci men Type: BLOOD SPECIMENOrdering Facility: [facility] Address: [address] [place] [address] Performed By: #### 5 7021-8 ####[facility] LABORATORYCLIA [id number] [address] MCH (RBC) [Entitic mass] 28.7 pg Normal 26.0-34.0 [facility] Comment on above: Order Comment: Speci men Type: BLOOD SPECIMENOrdering Facility: [facility] Address: [address] [place] [address] Performed By: #### 5 7021-8 ####[facility] LABORATORYCLIA [id number] [address] [place] MCHC (RBC) [Mass/Vol] 31.3 g/dL Normal 30.5-36.0 [facility] Comment on above: Order Comment: Speci men Type: BLOOD SPECIMENOrdering Facility: [facility] Address: [address] [place] [address] Performed By: #### 5 7021-8 ####[facility] LABORATORYCLIA [id number] [address] [place] MCV (RBC) [Entitic vol] 91.6 fL Normal 80.0-100.0 [facility] Comment on above: Order Comment: Speci men Type: BLOOD SPECIMENOrdering Facility: [facility] Address: [address] [place] [address] Performed By: #### 5 7021-8 ####[facility] LABORATORYCLIA [id number] [address] [place] Monocytes (Bld) [#/Vol] 0.81 10*3/uL Normal <0.87 [facility] Comment on above: Order Comment: Speci men Type: BLOOD SPECIMENOrdering Facility: [facility] Address: [address] [place] [address] Performed By: #### 5 7021-8 ####[facility] LABORATORYCLIA [id number] [address] [place] Monocytes/100 WBC (Bld) 9.1 % Normal [facility] Comment on above: Order Comment: Speci men Type: BLOOD SPECIMENOrdering Facility: [facility] Address: [address] [place] [address] Performed By: #### 5 7021-8 ####[facility] LABORATORYCLIA [id number] [place] [address] [place] Neutrophils (Bld) [#/Vol] 4.11 10*3/uL Normal 1.45-7.50 [facility] Comment on above: Order Comment: Speci men Type: BLOOD SPECIMENOrdering Facility: [facility] Address: [address] [place] [address] Performed By: #### 5 7021-8 ####[facility] LABORATORYCLIA [id number] [place] [address] [place] Neutrophils/100 WBC (Bld) 46.3 % Normal [facility] Comment on above: Order Comment: Speci men Type: BLOOD SPECIMENOrdering Facility: [facility] Address: [address] [place] [address] Performed By: #### 5 7021-8 ####[facility] LABORATORYCLIA [id number] [place] [address] [place] Nucleated RBC (Bld) [#/Vol] 10*3/uL Normal <0.01 [facility] Comment on above: Order Comment: Speci men Type: BLOOD SPECIMENOrdering Facility: [facility] Address: [address] [place] [address] Performed By: #### 5 7021-8 ####[facility] LABORATORYCLIA [id number] [place] [address] [place] Nucleated RBC/100 WBC (Bld) [Ratio] 0.0 /100 WBC Normal [facility] Comment on above: Order Comment: Speci men Type: BLOOD SPECIMENOrdering Facility: [facility] Address: [address] [place] [address] Performed By: #### 5 7021-8 ####[facility] LABORATORYCLIA [id number] [address] [place] Platelet mean volume (Bld) [Entitic vol] 10.7 fL Normal 9.0-12.7 [facility] Comment on above: Order Comment: Speci men Type: BLOOD SPECIMENOrdering Facility: [facility] Address: [address] [place] [address] Performed By: #### 5 7021-8 ####[facility] LABORATORYCLIA [id number] [place] [address] [place] Platelets (Bld) [#/Vol] 430 10*3/uL High 150-400 [facility] Comment on above: Order Comment: Speci men Type: BLOOD SPECIMENOrdering Facility: [facility] Address: [address] [place] [address] Performed By: #### 5 7021-8 ####[facility] LABORATORYCLIA [id number] [place] [address] [place] RBC (Bld) [#/Vol] 4.74 10*6/uL Normal 3.90-5.20 [facility] Comment on above: Order Comment: Speci men Type: BLOOD SPECIMENOrdering Facility: [facility] Address: [address] [place] [address] Performed By: #### 5 7021-8 ####[facility] LABORATORYCLIA [id number] [place] [id number] [place] WBC (Bld) [#/Vol] 8.87 10*3/uL Normal 3.70-11.00 [facility] Comment on above: Order Comment: Speci men Type: BLOOD SPECIMENOrdering Facility: [facility] Address: [address] [place] [address] Performed By: #### 5 7021-8 ####[facility] LABORATORYCLIA [id number] [address] [place] CNOVon 07-08-2024 CNOV Office Visit (FAMPWS ) ----- SANDRA SCHMITZ ([id number]) 1945 F Date Time Provider Department 07/08/24 2:00 PM MANDEEP HOUSER During your visit today, we recorded the following information about you: Pulse Blood pressure Weight 66/minute 110/70 83.5 kg Mandeep Houser DO 07/08/2024 2:50 PM Signed Licsw local options Dr.Sleik Dr. [place]s Options for mood Low dose of valerian root 250-500 mg in the evening Light box therapy consideration of light at 10,000 Lux strength- 20-30 minutes a day in the AM from Feb through August to help mood, can buy this on Blood cell Storage for use Mandeep Houser DO 07/08/2024 3:48 [...] October Would like to have her medical regulatory affairs manager more local for better accessibility PAST MEDICAL HISTORY Diagnosis Date Acute acalculous cholecystitis 05/30/2020 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 09/22/2020 Acute on chronic systolic CHF (congestive heart failure) ([facility]) 05/03/2020 Aspiration pneumonia ([facility]) 05/30/2020 Chest pain 05/03/2020 Chest pressure 01/23/2013 Chronic diastolic congestive heart failure ([facility]) 02/14/2021 Clostridium difficile diarrhea [...] use: No (more content not included)... Normal [facility] Comprehensive metabolic 2000 panelon 07-08-2024 Albumin [Mass/Vol] 4.3 g/dL Normal 3.9-4.9 [facility] Comment on above: Order Comment: Speci men Type: BLOOD SPECIMENOrdering Facility: [facility] Address: [address] [place] [address] Performed By: #### 2 132-9, 41623-1 ####[facility]ini[facility].ly[facility] LABORATORYCLIA [id number] [address] STATES OF [facility] ALP [Catalytic activity/Vol] 82 U/L Normal 34-123 [facility] Comment on above: Order Comment: Speci men Type: BLOOD SPECIMENOrdering Facility: [facility] Address: [address] [place] [address] Performed By: #### 2 132-9, 67614-7 ####[facility].ly[facility] LABORATORYCLIA [id number] [address] [place] ALT With P-5'-P [Catalytic activity/Vol] 11 U/L Normal 7-38 [facility] Comment on above: Order Comment: Speci men Type: BLOOD SPECIMENOrdering Facility: [facility] Address: [address] [place] [address] Performed By: #### 2 132-9, 00649-7 ####[facility] LABORATORYCLIA [id number] [place] [address] [place] Anion gap [Moles/Vol] 12 mmol/L Normal 8-15 [facility] Comment on above: Order Comment: Speci men Type: BLOOD SPECIMENOrdering Facility: [facility] Address: [address] [place] [address] Performed By: #### 2 132-9, 25260-3 ####[facility] LABORATORYCLIA [id number] [place] [address] [place] AST With P-5'-P [Catalytic activity/Vol] 16 U/L Normal 13-35 [facility] Comment on above: Order Comment: Speci men Type: BLOOD SPECIMENOrdering Facility: [facility] Address: [address] [place] [address] Performed By: #### 2 132-9, 55247-9 ####[facility] LABORATORYCLIA [id number] [place] [address] [place] Bilirubin [Mass/Vol] 0.7 mg/dL Normal 0.2-1.3 [facility] Comment on above: Order Comment: Speci men Type: BLOOD SPECIMENOrdering Facility: [facility] Address: [address] [place] [address] Performed By: #### 2 132-9, 62897-3 ####[facility] LABORATORYCLIA [id number] [place] [address] [place] Calcium [Mass/Vol] 9.8 mg/dL Normal 8.5-10.2 [facility] Comment on above: Order Comment: Speci men Type: BLOOD SPECIMENOrdering Facility: [facility] Address: [address] [place] [address] Performed By: #### 2 132-9, 97315-5 ####[facility] LABORATORYCLIA [id number] [place] [address] [place] Chloride [Moles/Vol] 102 mmol/L Normal 98-107 [facility] Comment on above: Order Comment: Speci men Type: BLOOD SPECIMENOrdering Facility: [facility] Address: [address] [place] [address] Performed By: #### 2 132-9, 86141-9 ####cliniq.lyLUIS ALFREDO [facility] LABORATORYCLIA [id number] [place] [address] [place] CO2 [Moles/Vol] 26 mmol/L Normal 22-30 [facility] Comment on above: Order Comment: Speci men Type: BLOOD SPECIMENOrdering Facility: [facility] Address: [address] [place] [address] Performed By: #### 2 132-9, ####cliniq.lySUMMERSVILLE MEMORIAL HOSPITALIA [id number] [address] OF [facility] Creatinine [Mass/Vol] 0.85 mg/dL Normal 0.58-0.96 [facility] Comment on above: Order Comment: Speci men Type: BLOOD SPECIMENOrdering Facility: [facility] Address: [address] [place] [address] Performed By: #### 2 132-9, 96796-0 ####cliniq.lySUMMERSVILLE MEMORIAL HOSPITALIA [id number] [address] Creatinine and Glomerular filtration rate.predicted panel (S/P/Bld) 71 mL/min/1.73m??? Normal >=60 [facility] Comment on above: Order Comment: Speci men Type: BLOOD SPECIMENOrdering Facility: [facility] Address: [address] [place] [address] Result Comment: Aaron mated Glomerular Filtration Rate [...] actual GFR. Performed By: #### 2 132-9, 90516-5 ####[place] [facility] LABORATORYCLIA [id number] [place] [id number] [place] Glucose [Mass/Vol] 86 mg/dL Normal 74-99 [facility] Comment on above: Order Comment: Lenard men Type: BLOOD SPECIMENOrdering Facility: [facility] Address: [address] [place], [place] [id number] Result Comment: The [place] [employer] (ADA) provides guidance for cutoff [...] Standards of Medical Care in Diabetes 2016, [place] [employer]. Diabetes Care. 2016.39(Suppl 1). Performed By: #### 2 132-9, 99672-2 ####[facility] LABORATORYCLIA [id number] [place] [id number] [place] Potassium [Moles/Vol] 4.9 mmol/L Normal 3.7-5.1 [facility] Comment on above: Order Comment: Lenard jesus Type: BLOOD SPECIMENOrdering Facility: [facility] Address: [address] [place], [place] [address] Performed By: #### 2 132-9, ####[facility] LABORATORYCLIA [id number] [place] [address] [place] Protein [Mass/Vol] 7.4 g/dL Normal 6.3-8.0 [facility] Comment on above: Order Comment: Lenard jesus Type: BLOOD SPECIMENOrdering Facility: [facility] Address: [address] [place], [place] [address] Performed By: #### 2 132-9, 64826-6 ####cliniq.lyREYNOLDS [facility] LABORATORYCLIA [id number] [place] [address] [place] Sodium [Moles/Vol] 140 mmol/L Normal 136-144 [facility] Comment on above: Order Comment: Speci men Type: BLOOD SPECIMENOrdering Facility: [facility] Address: [address] [place] [address] Performed By: #### 2 132-9, 48844-8 ####[facility] LABORATORYCLIA [id number] [place] [address] [place] Urea nitrogen [Mass/Vol] 23 mg/dL High 7-21 [facility] Comment on above: Order Comment: Speci men Type: BLOOD SPECIMENOrdering Facility: [facility] Address: [address] [place] [address] Performed By: #### 2 132-9, 96291-4 ####[facility] LABORATORYCLIA [id number] [place] [address] [place] Magnesium SerPl-mCncon 07-08 Magnesium [Mass/Vol] 2.0 mg/dL Normal 1.7-2.3 [facility] Comment on above: Order Comment: Speci men Type: BLOOD SPECIMENOrdering Facility: [facility] Address: [address] [place] [address] Performed By: #### 3 016-3, 65495-0, 25459-6, 7 ####[facility] LABORATORYCLIA [id number] [place] [address] [place] NT-proBNP SerPl-mCncon 07-08 Natriuretic peptide.B prohormone N-Terminal [Mass/Vol] 2199 pg/mL High <450 [facility] Comment on above: Order Comment: Speci men Type: BLOOD SPECIMENOrdering Facility: [facility] Address: [address] [place] [address] Performed By: #### 3 016-3, 28690-6, , 3023-11 ####[facility] LABORATORYCLIA [id number] [place] [address] [place] T4 Free SerPl-mCncon 07-08- 025 Free T4 [Mass/Vol] 1.8 ng/dL High 0.9-1.7 [facility] Comment on above: Order Comment: Speci men Type: BLOOD SPECIMENOrdering Facility: [facility] Address: [address] [place] [address] Performed By: #### 3 016-3, 55495-5, 15590-5, 3024-7 ####[facility] LABORATORYCLIA [id number] [place] [address] [place] TSH SerPl-aCncon 07-08-2024 TSH Qn 0.814 m[IU]/L Normal 0.270-4.200 [facility] Comment on above: Order Comment: Speci men Type: BLOOD SPECIMENOrdering Facility: [facility] Address: [address] [place] [address] Performed By: #### 3 016-3, 94010-2, 72970-8, 3024-7 ####[facility] LABORATORYCLIA [id number] [place] [address] [place] Urinalysis complete panel (U )on 07-08-2024 Bacteria LM.HPF (Urine sed) [#/Area] Negative Normal Negative [facility] Comment on above: Order Comment: Speci men Type: URINE SPECIMENOrdering Facility: [facility] Address: [address] [place] [address] Performed By: #### 2 4356-8 ####[facility] LABCLIA [id number] [place] [address] [place] Bilirubin Ql (U) Negative Normal Negative [facility] Comment on above: Order Comment: Speci men Type: URINE SPECIMENOrdering Facility: [facility] [facility] Address: [address] [place] [address] Performed By: #### 2 4356-8 ####[facility] LABCLIA [id number] [place] [address] [place] Clarity (Unsp spec) Clear Normal Clear [facility] Comment on above: Order Comment: Speci men Type: URINE SPECIMENOrdering Facility: [facility] Address: [address] [place] [address] Performed By: #### 2 4356-8 ####[facility] LABCLIA [id number] [address], [place] [address] [place] Color (U) Yellow Normal Yellow [facility] Comment on above: Order Comment: Speci men Type: URINE SPECIMENOrdering Facility: [facility] Address: [address] [place] [address] Performed By: #### 2 4356-8 ####[facility] LABIA [id number] [address], [place] [address] [place] Epithelial cells LM.HPF (Urine sed) [#/Area] Few Normal [facility] Comment on above: Order Comment: Speci men Type: URINE SPECIMENOrdering Facility: [facility] Address: [address] [place] [address] Performed By: #### 2 4356-8 ####[facility] LABIA [id number] [address], [facility] [place] Glucose Test strip (U) [Mass/Vol] Negative Normal Negative [facility] Comment on above: Order Comment: Speci men Type: URINE SPECIMENOrdering Facility: [facility] Address: [address] [place] [address] Performed By: #### 2 4356-8 ####[facility] LABIA [id number] [address], [facility] [place] Hemoglobin Ql (U) Negative Normal Negative [facility] Comment on above: Order Comment: Speci men Type: URINE SPECIMENOrdering Facility: [facility] Address: [address] [place] [address] Performed By: #### 2 4356-8 ####[facility] LABCLIA [id number] [address] [place] [address] [place] Hyaline casts (Urine sed) [#/Area] 0 /[LPF] Normal 0 /LPF [facility] Comment on above: Order Comment: Speci men Type: URINE SPECIMENOrdering Facility: [facility] Address: [address] [place] [address] Performed By: #### 2 4356-8 ####[facility] LABCLIA [id number] [facility] [address] [place] [address] [place] Ketones Ql (U) Negative Normal Negative [facility] Comment on above: Order Comment: Speci men Type: URINE SPECIMENOrdering Facility: [facility] Address: [address] [place] [address] Performed By: #### 2 4356-8 ####[facility] LABCLIA [id number] [address], [facility] [place] Leukocyte esterase Test strip Ql (U) Negative Normal Negative [facility] Comment on above: Order Comment: Speci men Type: URINE SPECIMENOrdering Facility: [facility] Address: [address] [place] [address] Performed By: #### 2 4356-8 ####[facility] LABCLIA [id number] [address], [facility] [place] Nitrite Ql (U) Negative Normal Negative [facility] Comment on above: Order Comment: Speci men Type: URINE SPECIMENOrdering Facility: [facility] Address: [address] [place] [address] Performed By: #### 2 4356-8 ####[facility] LABCLIA [id number] [address] [place] [address] [place] pH (U) 6.0 [pH] Normal <8.5 [facility] Comment on above: Order Comment: Speci men Type: URINE SPECIMENOrdering Facility: [facility] Address: [address] [place] [address] Performed By: #### 2 4356-8 ####[facility] LABCLIA [id number] [address] [place] [address] [place] Protein (U) [Mass/Vol] Negative Normal Negative Cl [facility] Comment on above: Order Comment: Speci men Type: URINE SPECIMENOrdering Facility: [facility] Address: [address] [place] [address] Performed By: #### 2 4356-8 ####[facility] [id number] [place] [address] [place] RBC LM.HPF (Urine sed) [#/Area] 0-2 /HPF Normal 0-2 /HPF [facility] Comment on above: Order Comment: Speci men Type: URINE SPECIMENOrdering Facility: [facility] Address: [address] [place] [address] Performed By: #### 2 4356-8 ####[facility] [id number] [place] [address] [place] Specific gravity (U) [Rel density] 1.022 Normal 1.005-1.030 [facility] Comment on above: Order Comment: Speci men Type: URINE SPECIMENOrdering Facility: [facility] Address: [address] [place] [address] Performed By: #### 2 4356-8 ####[facility] [id number] [address] [place] Urobilinogen Ql (U) 0.2 EU/dL Normal 0.2-1.0 EU/dL [facility] Comment on above: Order Comment: Speci men Type: URINE SPECIMENOrdering Facility: [facility] Address: [address] [place] [address] Performed By: #### 2 4356-8 ####[facility] [id number] [place] [address] [place] WBC LM.HPF (Urine sed) [#/Area] 0-5 /HPF Normal 0-5 /HPF [facility] Comment on above: Order Comment: Speci men Type: URINE SPECIMENOrdering Facility: [facility] Address: [address] [place] [address] Performed By: #### 2 4356-8 ####[facility] LABCLIA [id number] [place] [address] [place] Vit B12 SerPl-mCncon 07-08- 025 Cobalamin (Vitamin B12) [Mass/Vol] pg/mL High 232-1245 [facility] Comment on above: Order Comment: Speci men Type: BLOOD SPECIMENOrdering Facility: [facility] Address: [address] [place] [address] Performed By: #### 2 132-9, 48709-4 ####[facility] LABORATORYCLIA [id number] [place] [id number] [place] XR CHEST 2V [...] and scoliosis. IMPRESSION: No acute radiographic abnormality. Night Clerk: PSCB Transcribe Date/Time: Jul 09 2024 11:46A Dictated by : PERLA ONEILL MD This examination was interpreted and the report reviewed and electronically signed by: PERLA ONEILL MD on Jul 09 2024 11:47AM EST [id number] Normal [facility] CNPPadmini 07-01-2024 CNPN Telephone (FAMPWS) ----- NADIRSANDRA ([id number]) 1945 F Date Time Provider Department 07/01/24 [...] right [M19.071] 08/02/2022 Coronary artery disease involving alutiiq lopez*08/02/2022 Vitamin D deficiency [E55.9] 08/02/2022 Somatic [...] 07/13/2023 Ac (more content not included)... Normal [facility] CNOVon 06-20-2024 CNOV Office Visit ([facility]WS ) ----- SANDRA SCHMITZ ([id number]) 1945 F Date Time Provider Department 06/20/24 [...] on chronic systolic CHF (congestive heart failure) ([facility]) 05/03/2020 Aspiration pneumonia ([facility]) 05/30/2020 Chest pain 05/03/2020 Chest pressure 01/23/2013 Chronic diastolic congestive heart failure ([facility]) 02/14/2021 Clostridium difficile diarrhea 09/28/2020 Complete uterovaginal prolapse Cystocele, midline Essential hypertension 06/14/2020 Homozygous Factor V Leiden mutation ([facility]) 05/03/2020 Hypothyroidism IBS (irritable [...] Right a (more content not included)... Normal [facility] CNCOon 06-06-2024 CNCO Letter Text Normal [facility] CNOVon 05-30-2024 CNOV Office Visit ([facility]AMPWS ) ----- SANDRA SCHMITZ ([id number]) 1945 F [place]* Date Time Provider [...] on chronic systolic CHF (congestive heart failure) ([facility]) 05/03/2020 Aspiration pneumonia ([facility]) 05/30/2020 Chest pain 05/03/2020 Chest pressure 01/23/2013 Chronic diastolic congestive heart failure ([facility]) 02/14/2021 Clostridium difficile diarrhea 09/28/2020 Complete uterovaginal prolapse Cystocele, midline Essential hypertension 06/14/2020 Homozygous Factor V Leiden mutation ([facility]) 05/03/2020 Hypothyroidism IBS (irritable [...] head, C3-6NRrSBr (more content not included)... Normal [facility] CNOVon 05-12-2024 CNOV Office Visit ([facility]AMPWS ) ----- SANDRA SCHMITZ ([id number]) 1945 F [place]* Date Time Provider Department 05/12/24 3:20 PM [facility] During [facility] visit today, we recorded [...] on chronic systolic CHF (congestive heart failure) ([facility]) 05/03/2020 Aspiration pneumonia ([facility]) 05/30/2020 Chest pain 05/03/2020 Chest pressure 01/23/2013 Chronic diastolic congestive heart failure ([facility]) 02/14/2021 Clostridium difficile diarrhea 09/28/2020 Complete uterovaginal prolapse Cystocele, midline Essential hypertension 06/14/2020 Homozygous Factor V Leiden mutation ([facility]) 05/03/2020 Hypothyroidism IBS (irritable [...] posterior T3-10ERrSBl (more content not included)... Normal [facility] CBC W Auto Differential pane l (Bld)on 04-22-2024 Basophils (Bld) [#/Vol] 0.11 10*3/uL High [facility] Basophils/100 WBC (Bld) 0.8 % [facility] Differential cell count method Nom (Bld) Auto [facility] Eosinophils (Bld) [#/Vol] 0.19 10*3/uL [facility] Eosinophils/100 WBC (Bld) 1.3 % [facility] Erythrocyte distribution width (RBC) [Ratio] 14.1 % 11.5 - 15.0 % [facility] Hematocrit (Bld) [Volume fraction] 41.0 % 36.0 - 46.0 % [facility] Hemoglobin (Bld) [Mass/Vol] 12.5 g/dL 11.5 - 15.5 g/dL [facility] Immature granulocytes (Bld) [#/Vol] 0.09 10*3/uL [facility] Immature granulocytes/100 WBC (Bld) 0.6 % [facility] Interpretation and review of laboratory results Abnormal [facility] Lymphocytes (Bld) [#/Vol] 4.47 10*3/uL High [facility] Lymphocytes/100 WBC (Bld) 31.0 % [facility] MCH (RBC) [Entitic mass] 28.0 pg 26.0 - 34.0 pg [facility] MCHC (RBC) [Mass/Vol] 30.5 g/dL 30.5 - 36.0 g/dL [facility] MCV (RBC) [Entitic vol] 91.7 fL 80.0 - 100.0 fL [facility] Monocytes (Bld) [#/Vol] 1.29 10*3/uL High NINF [facility] Monocytes/100 WBC (Bld) 8.9 % [facility] Neutrophils (Bld) [#/Vol] 8.29 10*3/uL High [facility] Neutrophils/100 WBC (Bld) 57.4 % [facility] Nucleated RBC (Bld) [#/Vol] NINF [facility] Nucleated RBC/100 WBC (Bld) [Ratio] 0.0 % /100 WBC [facility] Platelet mean volume (Bld) [Entitic vol] 10.4 fL 9.0 - 12.7 fL [facility] Platelets (Bld) [#/Vol] 317 10*3/uL [facility] RBC (Bld) [#/Vol] 4.47 10*6/uL 3.90 - 5.2 0 m/uL [facility] WBC (Bld) [#/Vol] 14.44 10*3/uL [facility] Basophils (Bld) [#/Vol] 0.11 10*3/uL High <0.11 [facility] Comment on above: Order Comment: Speci men Type: BLOOD SPECIMENOrdering Facility: [facility] Address: [address] [place] [address] Performed By: #### 5 7021-8 ####[facility] LABCLIA [id number] [place] [address] [place] Basophils/100 WBC (Bld) 0.8 % Normal [facility] Comment on above: Order Comment: Speci men Type: BLOOD SPECIMENOrdering Facility: [facility] Address: [address] [place] [address] Performed By: #### 5 7021-8 ####[facility] LABCLIA [id number] [place] [address] [place] Differential cell count method Nom (Bld) Auto Normal [facility] Comment on above: Order Comment: Speci men Type: BLOOD SPECIMENOrdering Facility: [facility] Address: [address] [place] [address] Performed By: #### 5 7021-8 ####[facility] LABCLIA [id number] [place] [address] [place] Eosinophils (Bld) [#/Vol] 0.19 10*3/uL Normal <0.46 [facility] Comment on above: Order Comment: Speci men Type: BLOOD SPECIMENOrdering Facility: [facility] Address: [address] [place] [address] Performed By: #### 5 7021-8 ####[facility] LABCLIA [id number] [place] [address] [place] Eosinophils/100 WBC (Bld) 1.3 % Normal [facility] Comment on above: Order Comment: Speci men Type: BLOOD SPECIMENOrdering Facility: [facility] Address: [address] [place] [address] Performed By: #### 5 7021-8 ####[facility] LABCLIA [id number] [place] [address] [place] Erythrocyte distribution width (RBC) [Ratio] 14.1 % Normal 11.5-15.0 [facility] Comment on above: Order Comment: Speci men Type: BLOOD SPECIMENOrdering Facility: [facility] Address: [address] [place] [address] Performed By: #### 5 7021-8 ####[facility] LABCLIA [id number] [place] [address] [place] Hematocrit (Bld) [Volume fraction] 41.0 % Normal 36.0-46.0 [facility] Comment on above: Order Comment: Speci men Type: BLOOD SPECIMENOrdering Facility: [facility] Address: [address] [place] [address] Performed By: #### 5 7021-8 ####[facility] LABCLIA [id number] [place] [address] [place] Hemoglobin (Bld) [Mass/Vol] 12.5 g/dL Normal 11.5-15.5 [facility] Comment on above: Order Comment: Speci men Type: BLOOD SPECIMENOrdering Facility: [facility] Address: [address] [place] [address] Performed By: #### 5 7021-8 ####[facility] LABCLIA [id number] [place] [address] [place] Immature granulocytes (Bld) [#/Vol] 0.09 10*3/uL Normal <0.10 [facility] Comment on above: Order Comment: Speci men Type: BLOOD SPECIMENOrdering Facility: [facility] Address: [address] [place] [address] Performed By: #### 5 7021-8 ####[facility] LABCLIA [id number] [place] [address] [place] Immature granulocytes/100 WBC (Bld) 0.6 % Normal [facility] Comment on above: Order Comment: Speci men Type: BLOOD SPECIMENOrdering Facility: [facility] Address: [address] [place] [address] Performed By: #### 5 7021-8 ####[facility] LABCLIA [id number] [place] [address] [place] Lymphocytes (Bld) [#/Vol] 4.47 10*3/uL High 1.00-4.00 [facility] Comment on above: Order Comment: Speci men Type: BLOOD SPECIMENOrdering Facility: [facility] Address: [address] [place] [address] Performed By: #### 5 7021-8 ####[facility] LABIA [id number] [place] [address] [place] Lymphocytes/100 WBC (Bld) 31.0 % Normal [facility] Comment on above: Order Comment: Speci men Type: BLOOD SPECIMENOrdering Facility: [facility] Address: [address] [place] [address] Performed By: #### 5 7021-8 ####[facility] LABIA [id number] [place] [address] [place] MCH (RBC) [Entitic mass] 28.0 pg Normal 26.0-34.0 [facility] Comment on above: Order Comment: Speci men Type: BLOOD SPECIMENOrdering Facility: [facility] Address: [address] [place] [address] Performed By: #### 5 7021-8 ####[facility] LABIA [id number] [place] [address] [place] MCHC (RBC) [Mass/Vol] 30.5 g/dL Normal 30.5-36.0 [facility] Comment on above: Order Comment: Speci men Type: BLOOD SPECIMENOrdering Facility: [facility] Address: [address] [place] [address] Performed By: #### 5 7021-8 ####[facility] LABIA [id number] [place] [address] [place] MCV (RBC) [Entitic vol] 91.7 fL Normal 80.0-100.0 [facility] Comment on above: Order Comment: Speci men Type: BLOOD SPECIMENOrdering Facility: [facility] Address: [address] [place] [address] Performed By: #### 5 7021-8 ####[facility] LABCLIA [id number] [place] [address] [place] Monocytes (Bld) [#/Vol] 1.29 10*3/uL High <0.87 [facility] Comment on above: Order Comment: Speci men Type: BLOOD SPECIMENOrdering Facility: [facility] Address: [address] [place] [address] Performed By: #### 5 7021-8 ####[facility] LABCLIA [id number] [place] [address] [place] Monocytes/100 WBC (Bld) 8.9 % Normal [facility] Comment on above: Order Comment: Speci men Type: BLOOD SPECIMENOrdering Facility: [facility] Address: [address] [place] [address] Performed By: #### 5 7021-8 ####[facility] LABCLIA [id number] [place] [address] [place] Neutrophils (Bld) [#/Vol] 8.29 10*3/uL High 1.45-7.50 [facility] Comment on above: Order Comment: Speci men Type: BLOOD SPECIMENOrdering Facility: [facility] Address: [address] [place] [address] Performed By: #### 5 7021-8 ####[facility] LABCLIA [id number] [place] [address] [place] Neutrophils/100 WBC (Bld) 57.4 % Normal [facility] Comment on above: Order Comment: Speci men Type: BLOOD SPECIMENOrdering Facility: [facility] Address: [address] [place] [address] Performed By: #### 5 7021-8 ####[facility] LABCLIA [id number] [place] [address] [place] Nucleated RBC (Bld) [#/Vol] 10*3/uL Normal <0.01 [facility] Comment on above: Order Comment: Speci men Type: BLOOD SPECIMENOrdering Facility: [facility] Address: [address] [place] [address] Performed By: #### 5 7021-8 ####[facility] LABCLIA [id number] [place] [address] [place] Nucleated RBC/100 WBC (Bld) [Ratio] 0.0 /100 WBC Normal [facility] Comment on above: Order Comment: Speci men Type: BLOOD SPECIMENOrdering Facility: [facility] Address: [address] [place] [address] Performed By: #### 5 7021-8 ####[facility] LABCLIA [id number] [place] [address] [place] Platelet mean volume (Bld) [Entitic vol] 10.4 fL Normal 9.0-12.7 [facility] Comment on above: Order Comment: Speci men Type: BLOOD SPECIMENOrdering Facility: [facility] Address: [address] [place] [address] Performed By: #### 5 7021-8 ####[facility] LABCLIA [id number] [place] [address] [place] Platelets (Bld) [#/Vol] 317 10*3/uL Normal 150-400 [facility] Comment on above: Order Comment: Speci men Type: BLOOD SPECIMENOrdering Facility: [facility] Address: [address] [place] [address] Performed By: #### 5 7021-8 ####[facility] LABCLIA [id number] [place] [address] [place] RBC (Bld) [#/Vol] 4.47 10*6/uL Normal 3.90-5.20 [facility] Comment on above: Order Comment: Speci men Type: BLOOD SPECIMENOrdering Facility: [facility] Address: [address] [place] [address] Performed By: #### 5 7021-8 ####[facility] LABCLIA [id number] [place] [id number] [place] WBC (Bld) [#/Vol] 14.44 10*3/uL High 3.70-11.00 [facility] Comment on above: Order Comment: Speci men Type: BLOOD SPECIMENOrdering Facility: [facility] Address: [address] [place] [address] Performed By: #### 5 7021-8 ####[facility] LABCLIA [id number] [place] [id number] [place] CNOVon 04-22-2024 [facility] ----- SANDRA SCHMITZ ([id number]) 1945 F [place] Date Time Provider Department 04/22/24 2:00 PM [facility] During [facility] visit today, we recorded [...] on chronic systolic CHF (congestive heart failure) ([facility]) 05/03/2020 Aspiration pneumonia ([facility]) 05/30/2020 Chest pain 05/03/2020 Chest pressure 01/23/2013 Chronic diastolic congestive heart failure ([facility]) 02/14/2021 Clostridium difficile diarrhea 09/28/2020 Complete uterovaginal prolapse Cystocele, midline Essential hypertension 06/14/2020 Homozygous Factor V Leiden mutation ([facility]) 05/03/2020 Hypothyroidism IBS (irritable [...] intact b (more content not included)... Normal [facility] CRP SerPl-ncon 04-22-2024 CRP [Mass/Vol] 5.4 mg/dL High <0.9 [facility] Comment on above: Order Comment: Speci men Type: BLOOD SPECIMENOrdering Facility: [facility] Address: [address] [place], [place] [address] Performed By: #### 3 040-3, 1987-09 ####[facility] LABCLIA [id number] [address] [address] [place] Comprehensive metabolic 2000 panelon 04-22-2024 Albumin [Mass/Vol] 4.0 g/dL Normal 3.9-4.9 [facility] Comment on above: Order Comment: Speci men Type: BLOOD SPECIMENOrdering Facility: [facility] Address: [address] [place] [address] Performed By: #### 3 016-3, 3024-7, 305-0, 94218-9 ####[facility] LABCLIA [id number] [place] [address] [place] ALP [Catalytic activity/Vol] 76 U/L Normal 34-123 [facility] Comment on above: Order Comment: Speci men Type: BLOOD SPECIMENOrdering Facility: [facility] Address: [address] [place] [address] Performed By: #### 3 016-3, 302-7, 305-0, 94798-1 ####[facility] LABCLIA [id number] [place] [address] [place] ALT [Catalytic activity/Vol] 8 U/L Normal 7-38 [facility] Comment on above: Order Comment: Speci men Type: BLOOD SPECIMENOrdering Facility: [facility] Address: [address] [place] [address] Performed By: #### 3 016-3, 3024-7, 305-0, 38816-1 ####[facility] LABCLIA [id number] [place] [id number] [place] Anion gap [Moles/Vol] 11 mmol/L Normal 8-15 [facility] Comment on above: Order Comment: Speci men Type: BLOOD SPECIMENOrdering Facility: [facility] Address: [address] [place] [address] Performed By: #### 3 016-3, 3024-7, 305-0, 28792-0 ####[facility] LABCLIA [id number] [place] [address] [place] AST [Catalytic activity/Vol] 14 U/L Normal 13-35 [facility] Comment on above: Order Comment: Speci men Type: BLOOD SPECIMENOrdering Facility: [facility] Address: [address] [place], [place] [address] Performed By: #### 3 016-3, 3024-7, 305-0, 44784-9 ####[facility] LABCLIA [id number] [place] [address] [place] Bilirubin [Mass/Vol] 0.8 mg/dL Normal 0.2-1.3 [facility] Comment on above: Order Comment: Speci men Type: BLOOD SPECIMENOrdering Facility: [facility] Address: [address] [place] [address] Performed By: #### 3 016-3, 3024-7, 3050-0, 01891-6 ####[facility] LABIA [id number] [place] [address] [place] Calcium [Mass/Vol] 9.4 mg/dL Normal 8.5-10.2 [facility] Comment on above: Order Comment: Speci men Type: BLOOD SPECIMENOrdering Facility: [facility] Address: [address] [place] [address] Performed By: #### 3 016-3, 3024-7, 305-0, 29696-2 ####[facility] LABIA [id number] [place] [address] [place] Chloride [Moles/Vol] 103 mmol/L Normal 98-107 [facility] Comment on above: Order Comment: Speci men Type: BLOOD SPECIMENOrdering Facility: [facility] Address: [address] [place] [address] Performed By: #### 3 016-3, 3024-7, 305-0, 32363-3 ####[facility] LABCLIA [id number] [place] [address] [place] CO2 [Moles/Vol] 27 mmol/L Normal 22-30 [facility] Comment on above: Order Comment: Speci men Type: BLOOD SPECIMENOrdering Facility: [facility] Address: [address] [place] [address] Performed By: #### 3 016-3, 3024-7, 305-0, 59020-8 ####[facility] LABIA [id number] [place] [address] [place] Creatinine [Mass/Vol] 0.97 mg/dL High 0.58-0.96 [facility] Comment on above: Order Comment: Speci men Type: BLOOD SPECIMENOrdering Facility: [facility] Address: [address] [place] [address] Performed By: #### 3 016-3, 3024-7, 305-0, 97447-1 ####[facility] [id number] [place] [address] [place] Creatinine and Glomerular filtration rate.predicted panel (S/P/Bld) 60 mL/min/1.73m??? Normal >=60 [facility] Comment on above: Order Comment: Speci men Type: BLOOD SPECIMENOrdering Facility: [facility] Address: [address] [place] [address] Result Comment: Aaron mated Glomerular Filtration Rate [...] Performed By: #### 3 016-3, 3024-7, 305-0, 59617-5 ####[facility] LABIA [id number] [place] [id number] [place] Glucose [Mass/Vol] 90 mg/dL Normal 74-99 [facility] Comment on above: Order Comment: Speci men Type: BLOOD SPECIMENOrdering Facility: [facility] Address: [address] [place] [address] Result Comment: The [place] Diabetes Association (ADA) provides guidance for cutoff [...] Standards of Medical Care in Diabetes 2016, [place] [employer]. Diabetes Care. 2016.39(Suppl 1). Performed By: #### 3 016-3, 3024-7, 305-0, 77969-8 ####[facility] LABCLIA [id number] [place] [address] [place] Potassium [Moles/Vol] 4.1 mmol/L Normal 3.7-5.1 [facility] Comment on above: Order Comment: Lenard jesus Type: BLOOD SPECIMENOrdering Facility: [facility] Address: [address] [place] [address] Performed By: #### 3 016-3, 3024-7, 305-0, 16888-1 ####[facility] LABCLIA [id number] [place] [id number] [place] Protein [Mass/Vol] 7.4 g/dL Normal 6.3-8.0 [facility] Comment on above: Order Comment: Ernestinei men Type: BLOOD SPECIMENOrdering Facility: [facility] Address: [address] [place] [address] Performed By: #### 3 016-3, 3024-7, 305-0, 76297-8 ####[facility] LABCLIA [id number] [place] [address] [place] Sodium [Moles/Vol] 141 mmol/L Normal 136-144 [facility] Comment on above: Order Comment: Speci men Type: BLOOD SPECIMENOrdering Facility: [facility] Address: [address] [place] [address] Performed By: #### 3 016-3, 3024-7, 305-0, 27204-4 ####[facility] LABCLIA [id number] [place] [address] [place] Urea nitrogen [Mass/Vol] 19 mg/dL Normal 7-21 [facility] Comment on above: Order Comment: Speci men Type: BLOOD SPECIMENOrdering Facility: [facility] Address: [address] [place] [address] Performed By: #### 3 016-3, 3024-7, 305-0, 25874-5 ####[facility] LABCLIA [id number] [place] [address] [place] Lipase SerPl-cCncon 04-22-20 24 Lipase [Catalytic activity/Vol] 25 U/L Normal 16-61 [facility] Comment on above: Order Comment: Speci men Type: BLOOD SPECIMENOrdering Facility: [facility] Address: [address] [place] [address] Performed By: #### 3 040-3, 1987-09 ####[facility] LABCLIA [id number] [place] [id number] [place] T3Free SerPl-mCncon 04-22-20 24 Free T3 [Mass/Vol] 2.1 pg/mL Low 2.3-4.1 [facility] Comment on above: Order Comment: Speci men Type: BLOOD SPECIMENOrdering Facility: [facility] Address: [address] [place] [address] Performed By: #### 3 016-3, 3024-7, 305-0, 14250-8 ####[facility] LABCLIA [id number] [place] [id number] [place] T4 Free SerPl-mCncon 024 Free T4 [Mass/Vol] 1.6 ng/dL Normal 0.9-1.7 [facility] Comment on above: Order Comment: Speci men Type: BLOOD SPECIMENOrdering Facility: [facility] Address: [address] [place] [address] Performed By: #### 3 016-3, 3024-7, 3051-0, 49758-0 ####[facility] LABIA [id number] [place] [address] [place] TSH SerPl-aCncon 04-22-2024 TSH Qn 0.233 m[IU]/L Low 0.270-4.200 [facility] Comment on above: Order Comment: Speci men Type: BLOOD SPECIMENOrdering Facility: [facility] Address: [address] [place] [address] Performed By: #### 3 016-3, 3024-7, 3051-0, 16607-9 ####[facility] [id number] [place] [address] [place] UA DIP, URINE (POC)on 2023 BILIRUBIN UA (POCT) Negative Negative [facility] CLARITY UA (POCT) Clear [facility] COLOR UA (POCT) Yellow [facility] GLUCOSE UA (POCT) Negative Negative mg/dL [facility] Hemoglobin Ql (U) Negative Negative [facility] KETONE UA (POCT) Negative Negative mg/dL [facility] LEUKOCYTES UA (POCT) Negative Negative [facility] NITRITE UA (POCT) Negative Negative [facility] PH UA (POCT) 6.0 4.5 - 8.0 [facility] Protein Ql (U) Negative Negative mg/dL [facility] SPECIFIC GRAVITY UA (POCT) 1.015 1.005 - 1.030 [facility] UROBILINOGEN UA (POCT) 0.2 Jeanette l E.U./dL [facility] Location:[facility], [address] [facility], [place], [address] [facility] POINT OF CARE [facility] 12 Lead EKGon 03-27-2024 12 Lead EKG [facility] Cardiovascular Services [address] [place] [address] 12 Lead EKG 03/27/24 0108 MR#: [id number] Acct: [id number] Name: SANDRA SCHMITZ Rep #: [id number] : 1945 78 From: Yousuf Parker MD [...] ECG Confirmed by TEO BRYAN, MONICA ([id number]), online editor SINCERE HINSON ([id number]) on 03/27/2024 1:51:10 PM Referred By: Confirmed By: MONICA PARKER MD 03/27/24 1351 Date Yousuf Parker MD CC: Dr. Mandeep Houser DO; Parker Nunez DO Signed Normal [facility] Abdomen/Pelvis W IV Cont ONL Yon 03-27-2024 Abdomen/Pelvis W IV Cont ONLY [facility] Imaging Services [address] [place] [address] Abdomen/Pelvis W IV Cont ONLY MR#: [id number] Acct: [id number] Name: SANDRA SCHMITZ Rep #: [id number] : 1945 F 78 From: Lacy Virk PCP: Dr. Mandeep Houser DO Status: REG ER Study: Abdomen/Pelvis W IV Cont ONLY Date of Exam: Exam# [id number] Ordering Dr: Parker Nunez DO [id number] EXAM: CT Abdomen And Pelvis W/ Contrast [...] Dr. Mandeep Houser DO; Parker Nunez DO Night Clerk: Signed Normal [facility] BNP,B-Type NATRIURETIC PEPTI Lizeth 03-27-2024 Natriuretic peptide B (Bld) [Mass/Vol] 268.9 pg/mL High 0-100 [facility] Comment on above: Performed By: #### L 501.5200, L100.0100, L500.3400, L500.2500, L300.8000, L503.6620, L501.2450 #### [facility] Laboratory [address] [place], [address] Basic Metabolic Profile (BMP )on 03-27-2024 BUN/CRE 30.8 RATIO High 10-20 [facility] Comment on above: Performed By: #### L 501.5200, L100.0100, L500.3400, L500.2500, L300.8000, L503.6620, L501.2450 #### [facility] [address] [place], [address] CA,Total 9.1 mg/dL Normal 8.5-10.1 [facility] Comment on above: Performed By: #### L 501.5200, L100.0100, L500.3400, L500.2500, L300.8000, L503.6620, L501.2450 #### [facility] [address] [place], [address] Chloride [Moles/Vol] 105 mmol/L Normal 98-107 [facility] Comment on above: Performed By: #### L 501.5200, L100.0100, L500.3400, L500.2500, L300.8000, L503.6620, L501.2450 #### [facility] [address] [place], [address] CO2 [Moles/Vol] 28.0 mmol/L Normal 21.0-32.0 [facility] Comment on above: Performed By: #### L 501.5200, L100.0100, L500.3400, L500.2500, L300.8000, L503.6620, L501.2450 #### [facility] [address] [place], [address] Creatinine [Mass/Vol] 1.07 mg/dL High 0.55-1.[address] [facility] Comment on above: Result Comment: The validity of the calculated GFR GFRAA in patients over 70 years has not been determined. Clinical correlation is essential. Performed By: #### L 501.5200, L100.0100, L500.3400, L500.2500, L300.8000, L503.6620, L501.2450 #### [facility] [address] [place], [address] ECRCL 46.99 ml/min Normal [facility] Comment on above: Performed By: #### L 501.5200, L100.0100, L500.3400, L500.2500, L300.8000, L503.6620, L501.2450 #### [facility] [address] [place], [address] EST GFR - AA 64 mL/min Normal >60 [facility] Comment on above: Result Comment: Afri can [place] GFR Calc Performed By: #### L 501.5200, L100.0100, L500.3400, L500.2500, L300.8000, L503.6620, L501.2450 #### [facility] [address] [place], [address] GAP 6 Normal 5-15 [facility] Comment on above: Performed By: #### L 501.5200, L100.0100, L500.3400, L500.2500, L300.8000, L503.6620, L501.2450 #### [facility] [address] [place], [address] GFR/1.73 sq M.predicted among non-blacks MDRD (S/P/Bld) [Vol rate/Area] 53 mL/min/{1.73_m2} Low >60 [facility] Comment on above: Result Comment: Non- GFR Calc Performed By: #### L 501.5200, L100.0100, L500.3400, L500.2500, L300.8000, L503.6620, L501.2450 #### [facility] [address] [place], [address] Glucose [Mass/Vol] 103 mg/dL Normal 74-106 [facility] Comment on above: Result Comment: Fast ing Glucose result from 100 to 125 mg/dL suggests IMPAIRED HOMEOSTASIS per A.D.A. criteria. Performed By: #### L 501.5200, L100.0100, L500.3400, L500.2500, L300.8000, L503.6620, L501.2450 #### [facility] [address] [place], [address] Potassium [Moles/Vol] 3.8 mmol/L Normal 3.5-5.[address] [facility] Comment on above: Performed By: #### L 501.5200, L100.0100, L500.3400, L500.2500, L300.8000, L503.6620, L501.2450 #### [facility] [address] [place], [address] Sodium [Moles/Vol] 139 mmol/L Normal 136-145 [facility] Comment on above: Performed By: #### L 501.5200, L100.0100, L500.3400, L500.2500, L300.8000, L503.6620, L501.2450 #### [facility] [address] [place], [address] Urea nitrogen [Mass/Vol] 33 mg/dL High 7-18 [facility] Comment on above: Performed By: #### L 501.5200, L100.0100, L500.3400, L500.2500, L300.8000, L503.6620, L501.2450 #### [facility] [address] [place], [address] CBC W/Diff, Automatedon 03-14 Absolute Lymph 3.11 X10 3/uL Normal 0.83-4.51 [facility] Comment on above: Performed By: #### L 501.5200, L100.0100, L500.3400, L500.2500, L300.8000, L503.6620, L501.2450 #### [facility] [address] [place], [address] Absolute Neut 8.8 X10 3/uL High 2.0-7.7 [facility] Comment on above: Performed By: #### L 501.5200, L100.0100, L500.3400, L500.2500, L300.8000, L503.6620, L501.2450 #### [facility] [address] [place], [address] Basophils/100 WBC (Bld) 0.9 % Normal 0-1 [facility] Comment on above: Performed By: #### L 501.5200, L100.0100, L500.3400, L500.2500, L300.8000, L503.6620, L501.2450 #### [facility] [address] [place], [address] Eosinophils/100 WBC (Bld) 2.3 % Normal 0-5 [facility] Comment on above: Performed By: #### L 501.5200, L100.0100, L500.3400, L500.2500, L300.8000, L503.6620, L501.2450 #### [facility] [address] [place], [address] Erythrocyte distribution width (RBC) [Ratio] 14.0 % Normal 11.6-14.6 [facility] Comment on above: Performed By: #### L 501.5200, L100.0100, L500.3400, L500.2500, L300.8000, L503.6620, L501.2450 #### [facility] [address] [place], [address] Hematocrit (Bld) [Volume fraction] 43.6 % Normal 37-47 [facility] Comment on above: Performed By: #### L 501.5200, L100.0100, L500.3400, L500.2500, L300.8000, L503.6620, L501.2450 #### [facility] [address] [place], [address] Hemoglobin (Bld) [Mass/Vol] 13.7 g/dL Normal 12.0-15.0 [facility] Comment on above: Performed By: #### L 501.5200, L100.0100, L500.3400, L500.2500, L300.8000, L503.6620, L501.2450 #### [facility] [address] [place], [address] IG% 1.100 High 0.0-0.9 [facility] Comment on above: Result Comment: IG% - Immature Granulocytes (promyelocytes, myelocytes and metamyelocytes) > 1% indicates that a LEFT SHIFT is Present. Performed By: #### L 501.5200, L100.0100, L500.3400, L500.2500, L300.8000, L503.6620, L501.2450 #### [facility] [address] [place], [address] Lymphocytes/100 WBC (Bld) 24.2 % Normal 19-41 [facility] Comment on above: Performed By: #### L 501.5200, L100.0100, L500.3400, L500.2500, L300.8000, L503.6620, L501.2450 #### [facility] [address] [place], [address] MCH (RBC) [Entitic mass] 28.9 pg Normal 27.0-32.0 [facility] Comment on above: Performed By: #### L 501.5200, L100.0100, L500.3400, L500.2500, L300.8000, L503.6620, L501.2450 #### [facility] [address] [place], [address] MCHC (RBC) [Mass/Vol] 31.4 g/dL Low 32-[address] [facility] Comment on above: Performed By: #### L 501.5200, L100.0100, L500.3400, L500.2500, L300.8000, L503.6620, L501.2450 #### [facility] [address] [place], [address] MCV (RBC) [Entitic vol] 92.0 fL Normal 81-99 [facility] Comment on above: Performed By: #### L 501.5200, L100.0100, L500.3400, L500.2500, L300.8000, L503.6620, L501.2450 #### [facility] [address] [place], [address] Monocytes/100 WBC (Bld) 2.7 % Normal 0-10 [facility] Comment on above: Performed By: #### L 501.5200, L100.0100, L500.3400, L500.2500, L300.8000, L503.6620, L501.2450 #### [facility] [address] [place], [address] Neutrophils/100 WBC (Bld) 68.8 % Normal 47-70 [facility] Comment on above: Performed By: #### L 501.5200, L100.0100, L500.3400, L500.2500, L300.8000, L503.6620, L501.2450 #### [facility] [address] [place], [address] Nucleated RBC (Bld) [#/Vol] 0 10*3/uL Normal 0-5 [facility] Comment on above: Performed By: #### L 501.5200, L100.0100, L500.3400, L500.2500, L300.8000, L503.6620, L501.2450 #### [facility] [address] [place], [address] Platelet mean volume (Bld) [Entitic vol] 10.5 fL Normal 6.2-12.0 [facility] Comment on above: Performed By: #### L 501.5200, L100.0100, L500.3400, L500.2500, L300.8000, L503.6620, L501.2450 #### [facility] [address] [place], [address] Platelets (Bld) [#/Vol] 333 10*3/uL Normal 150-450 [facility] Comment on above: Performed By: #### L 501.5200, L100.0100, L500.3400, L500.2500, L300.8000, L503.6620, L501.2450 #### [facility] [address] [place], [address] RBC (Bld) [#/Vol] 4.74 10*6/uL Normal 4.2-5.4 [facility] Comment on above: Performed By: #### L 501.5200, L100.0100, L500.3400, L500.2500, L300.8000, L503.6620, L501.2450 #### [facility] [address] [place], [address] RDW SD 47.4 fl High 35.1-43.9 [facility] Comment on above: Performed By: #### L 501.5200, L100.0100, L500.3400, L500.2500, L300.8000, L503.6620, L501.2450 #### [facility] [address] [place], [address] WBC (Bld) [#/Vol] 12.8 10*3/uL High 4.4-11.0 [facility] Comment on above: Performed By: #### L 501.5200, L100.0100, L500.3400, L500.2500, L300.8000, L503.6620, L501.2450 #### [facility] [address] [place], [address] Chest PA and Lateralon 03-27 Chest PA and Lateral [facility] Imaging Services [address] [place] [address] Chest PA and Lateral MR#: [id number] Acct: [id number] Name: SANDRA SCHMITZ Rep #: [id number] : 1945 F 78 From: Lacy Virk PCP: Dr. Mandeep Houser DO Status: [facility] Study: Chest PA and Lateral Date of Exam: 03/27/24 Exam# [id number] Ordering Dr: Parker Nunez DO [id number] INDICATION: dyspnea EXAMINATION/TECHNIQUE: X-RAY - XR Chest [...] Dr. Mandeep Houser DO; Parker Nunez DO Night Clerk: Signed Normal [facility] D-Dimer Quantitative (DVT/PE )on 03-27-2024 D-DIMER QUANT 0.57 FEU/ug/m Invalid Interpretation Code 0.27-0.49 [facility] Comment on above: Result Comment: D-Di rosa elena ELEVATED (>0.49): Additional studies and clinical assessments are indicated to conclude diagnosis of: Deep Vein Thrombosis (DVT) or Pulmonary Embolism (PE) CRITICAL VALUE CALLED TO MMARTIAN 03/27/24 0155 Cristhian Aguirre. RESULTS READ BACK BY SAME. Performed By: #### L 501.5200, L100.0100, L500.3400, L500.2500, L300.8000, L503.6620, L501.2450 #### [facility] [address] [facility] [place], [address] Emergency Department Summary on 03-27-2024 Emergency Department Summary [facility] Medical Records Department [address] [place] [address] Emergency Department Summary 03/27/24 MR#: [id number] Acct: [id number] Name: SANDRA SCHMITZ Rep #: [id number] : 1945 78 From: Parker Nunez DO [...] called to bring her in for evaluation [facility] Medical History (Updated 03/27/24 @ [...] 18 Res (more content not included)... Normal [facility] Lipaseon 03-27-2024 Lipase [Catalytic activity/Vol] 51 U/L Normal 13-75 [facility] Comment on above: Result Comment: Alva wiggins note: LIPASE revised reference range effective 22. New Lipase methodology. Expected to produce lower values than the previous assay method. NEW Reference Range: 13 - 75 U/L Performed By: #### L 501.5200, L100.0100, L500.3400, L500.2500, L300.8000, L503.6620, L501.2450 #### [facility] [address] [place], [address] Liver Profileon 03-27-2024 Albumin [Mass/Vol] 3.7 g/dL Normal 3.2-5.0 [facility] Comment on above: Performed By: #### L 501.5200, L100.0100, L500.3400, L500.2500, L300.8000, L503.6620, L501.2450 #### [facility] [address] [place], [address] ALK P 78 U/L Normal 45-117 [facility] Comment on above: Performed By: #### L 501.5200, L100.0100, L500.3400, L500.2500, L300.8000, L503.6620, L501.2450 #### [facility] [address] [place], [address] ALT [Catalytic activity/Vol] 16 U/L Normal 13-56 [facility] Comment on above: Performed By: #### L 501.5200, L100.0100, L500.3400, L500.2500, L300.8000, L503.6620, L501.2450 #### [facility] [address] [place], [address] AST [Catalytic activity/Vol] 18 U/L Normal 15-37 [facility] Comment on above: Performed By: #### L 501.5200, L100.0100, L500.3400, L500.2500, L300.8000, L503.6620, L501.2450 #### [facility] [address] [place], [address] Bilirubin [Mass/Vol] 0.40 mg/dL Normal 0.20-1.00 [facility] Comment on above: Result Comment: For patients on eltrombopag therapy, use of Dimension [place] TBIL is not recommended. Performed By: #### L 501.5200, L100.0100, L500.3400, L500.2500, L300.8000, L503.6620, L501.2450 #### [facility] [address] [place], [address] Bilirubin.direct [Mass/Vol] 0.13 mg/dL Normal 0.00-0.30 [facility] Comment on above: Performed By: #### L 501.5200, L100.0100, L500.3400, L500.2500, L300.8000, L503.6620, L501.2450 #### [facility] [address] [place], [address] Globulin (S) [Mass/Vol] 4.5 g/dL High 2.2-4.2 [facility] Comment on above: Performed By: #### L 501.5200, L100.0100, L500.3400, L500.2500, L300.8000, L503.6620, L501.2450 #### [facility] [address] [place], [address] T PROT 8.2 g/dL Normal 6.4-8.2 [facility] Comment on above: Performed By: #### L 501.5200, L100.0100, L500.3400, L500.2500, L300.8000, L503.6620, L501.2450 #### [facility] [address] [place], [address] M100.678on 03-27-2024 M100.678 Pending SARS-CoV-2 (COVID 19) Negative INFLUENZA A Negative INFLUENZA B Negative RSV PCR Negative Normal [facility] Comment on above: Performed By: #### M 100.678 ####[facility] [address] [place], [address] Magnesiumon 03-27-2024 Magnesium [Mass/Vol] 2.1 mg/dL Normal 1.6-2.6 [facility] Comment on above: Performed By: #### L 501.5200, L100.0100, L500.3400, L500.2500, L300.8000, L503.6620, L501.2450 #### [facility] [address] [place], [address] Urinalysis, Completeon 03-27 EPI,SQUAMOUS 0-5 SEEN Normal 5-10 [facility] Comment on above: Order Comment: CLEAN CATCH Performed By: #### L 400.0001 ####[facility] [facility] [address] [place], [address] BACTERIA 0 SEEN Normal None Seen [facility] Comment on above: Order Comment: CLEAN CATCH Performed By: #### L 400.0001 ####[facility] [address] [place], [address] Mucus Ql (Urine sed) 0 SEEN Normal [facility] Comment on above: Order Comment: CLEAN CATCH Performed By: #### L 400.0001 ####[facility] [address] [place], [address] RBC 0 SEEN Normal 0-5 [facility] Comment on above: Order Comment: CLEAN CATCH Performed By: #### L 400.0001 ####[facility] [address] [place], [address] WBC 0 SEEN Normal 0-5 [facility] Comment on above: Order Comment: CLEAN CATCH Performed By: #### L 400.0001 ####[facility] [address] [place], [address] [facility] ----- SANDRA SCHMITZ ([id number]) 1945 [place]* Date Time Provider [...] right [M19.071] 08/02/2022 Coronary artery disease involving alutiiq lopez*08/02/2022 Vitamin D deficiency [E55.9] (more content not included)... Normal [facility] Jayna 03-05-2024 TIMN Telephone ([facility]) ----- SANDRA SCHMITZ ([id number]) 1945 [address] Farhan Shonna* Date Time Provider [...] right [M19.071] 08/02/2022 Coronary artery disease involving alutiiq lopez*08/02/2022 Vitamin D deficiency [E55.9] 08/02/2022 Somatic [...] (left bundle (more content not included)... Normal [facility] CNOVon 02-12-2024 CNOV Office Visit (FAMPWS ) ----- SANDRA SCHMITZ ([id number]) 1945 [place]* Date Time Provider Department 02/12/24 2:00 PM [facility] During your visit today, we recorded the following information about you: Mandeep Houser DO 02/12/2024 4:00 PM Signed CC: Sandra Schimtz is a 78 year old female who [...] on chronic systolic CHF (congestive heart failure) ([facility]) 05/03/2020 Aspiration pneumonia ([facility]) 05/30/2020 Chest pain 05/03/2020 Chest pressure 01/23/2013 Chronic diastolic congestive heart failure ([facility]) 02/14/2021 Clostridium difficile diarrhea 09/28/2020 Complete uterovaginal prolapse Cystocele, midline Essential hypertension 06/14/2020 Homozygous Factor V Leiden mutation ([facility]) 05/03/2020 Hypothyroidism IBS (irritable [...] T3-10ERrSBl L1-2NRrS (more content not included)... Normal [facility] T3Free SerPl-mCncon 02-12-20 24 Free T3 [Mass/Vol] 2.1 pg/mL Low 2.3-4.1 [facility] Comment on above: Order Comment: Speci men Type: BLOOD SPECIMENOrdering Facility: [facility] Address: [address] [place] [address] Performed By: #### 3 051-0, 3024-7, 3016-3 ####[facility] LABCLIA [id number] [facility] [place] [address] [place] T4 Free SerPl-mCncon 024 Free T4 [Mass/Vol] 1.6 ng/dL Normal 0.9-1.7 [facility] Comment on above: Order Comment: Speci men Type: BLOOD SPECIMENOrdering Facility: [facility] Address: [address] [place] [address] Performed By: #### 3 051-0, 3024-7, 6-3 ####[facility] LABCLIA [id number] [place] [id number] [place] TSH SerPl-aCncon 02-12-2024 TSH Qn 0.695 m[IU]/L Normal 0.270-4.200 [facility] Comment on above: Order Comment: Speci men Type: BLOOD SPECIMENOrdering Facility: [facility] Address: [address] [place] [address] Performed By: #### 3 051-0, 3024-7, 6-3 ####[facility] LABCLIA [id number] [address] [place] CNOVon 02-07-2024 CNOV Office Visit (CARDMM ) ----- SANDRA SCHMITZ ([id number]) 1945 [place]* Date Time Provider Department 02/07/24 2:20 PM ANGEL CASTRO During your visit today, we recorded the following information about you: Pulse Blood pressure Weight 83/minute 132/78 89.2 kg Angel Castro DO 02/07/2024 2:40 PM Signed [facility] Department of Cardiovascular Medicine SECTION OF REGIONAL CARDIOLOGY/[facility] OUTPATIENT VISIT DATE February 07, 2024 OUTPATIENT VISIT TYPE ESTABLISHED PATIENT Name: Sandra Ricardo Nadir : 1945 Date: February 07, 2024 PRIMARY CARE PHYSICIAN: Mandeep Houser [address] [place] [address] REFERRING PHYSICIAN: No referring provider defined for this encounter. CHIEF COMPLAINT: Patient presents with: CARD Follow Up 3 Month: PMH: non-ischemic CM, HTN, Hypothyroidism, LBBB s/p ASSISTANT CENTER MANAGER-D IMPRESSION / PLAN: Severe nonischemic cardiomyopathy status post ASSISTANT CENTER MANAGER-D in July 2023. - [facility] 10/2021: mod LAD, D1 prox 40%, mild [...] breath or increasing abdominal girth. - s/p ASSISTANT CENTER MANAGER-D 07/16/23 at [facility] - Follows with advanced heart failure, - Follows with EP, Dr. Wellington and continue follow-up in the device clinic Left bundle branch block - s/p ASSISTANT CENTER MANAGER-D 07/16/23 at [facility] - Follows with EP, Dr. Wellington Nonobstructive coronary artery disease - [facility] 10/2021: mod LAD, D1 prox 40%, mild [...] an ejection fraction of 23% status post ASSISTANT CENTER MANAGER-D in July 2023, hypertension and factor V [...] on chronic systolic CHF (congestive heart failure) ([facility]) 05/03/2020 Aspiration pneumonia ([facility]) 05/30/2020 Chest pain 05/03/2020 [...] status: Former (more content not included)... Normal [facility] ECG COMPLETEon 02-04-2024 Atrial Rate 70 BPM [facility] Calculated P [place] 21 degrees [facility] Calculated R [place] -61 degrees [facility] Calculated T [place] 63 degrees [facility] P-R Interval 132 ms [facility] QRS Duration 116 ms [facility] QT Interval 462 ms [facility] QTC Calculation (Bazett) 498 ms [facility] Ventricular Rate 70 BPM [facility] NORMAL SINUS RHYTHM LEFT AXIS DEVIATION INFERIOR MYOCARDIAL INFARCTION , AGE UNDETERMINED ANTEROLATERAL INFARCTION , AGE UNDETERMINED ABNORMAL ECG Confirmed by AUGUSTINE WAN MD ([id number]) on 02/04/2024 10:18:22 AM [facility] NAME : SANDRA SCHMITZ PID : [id number] : 1945 Gender : Female Race : [...] Acquired by : , HEART AND VASCULAR [facility] NT PRO BNPon 01-30-2024 Natriuretic peptide.B prohormone N-Terminal [Mass/Vol] 2145 pg/mL High NINF - 450 pg/mL [facility] Natriuretic peptide.B prohor briana N-Terminal [Mass/Vol]on 01-30-2024 Interpretation and review of laboratory results Abnormal [facility] CNOVon 01-29-2024 CNOV Office Visit (FAMPWS ) ----- SANDRA SCHMITZ ([id number]) 1945 [place]* Date Time Provider Department [...] on chronic systolic CHF (congestive heart failure) ([facility]) 05/03/2020 Aspiration pneumonia ([facility]) 05/30/2020 Chest pain 05/03/2020 Chest pressure 01/23/2013 Chronic diastolic congestive heart failure ([facility]) 02/14/2021 Clostridium difficile diarrhea 09/28/2020 Complete uterovaginal prolapse Cystocele, midline Essential hypertension 06/14/2020 Homozygous Factor V Leiden mutation ([facility]) 05/03/2020 Hypothyroidism IBS (irritable [...] edema. No (more content not included)... Normal [facility] NT-proBNP Becky-Daniel 01-28 Natriuretic peptide.B prohormone N-Terminal [Mass/Vol] 2145 pg/mL High <450 [facility] Comment on above: Order Comment: Speci men Type: BLOOD SPECIMENOrdering Facility: [facility] Address: [address] [place] [address] Performed By: #### 3 3762-6 ####[facility] LABCLIA [id number] [address] CNOVon 01-15-2024 CNOV Office Visit (CACHFV ) ----- SANDRA SCHMITZ ([id number]) 1945 F [place]* Date Time Provider [...] and weight daily. Please notify us via Synatahart if your Systolic BP (top number) < [...] heart kidney injury risk Please send a [employer] message or call with any questions or concerns: Outpatient Number: [phone] Thank you, Pili Wells MD Advanced Heart Failure [facility] Trans[facility] [place] [phone] Pili Wells MD 03/07/2024 7:04 PM Signed [facility] SECTION OF HEART FAILURE and CARDIAC TRANSPLANT MEDICINE [facility] OUTPATIENT VISIT DATE January 15, 2024 OUTPATIENT VISIT TYPE Established PRIMARY CARE PHYSICIAN: Mandeep Houser [address] [place] [phone] CHIEF COMPLAINT: Follow Up HISTORY OF PRESENT ILLNESS: Sandra Schmitz is a 78 year old female with a medical history that includes non-ischemic CM, HTN, Hypothyroidism, LBBB s/p ASSISTANT CENTER MANAGER-D who is referred to me for heart failure management. Sandra Schmitz was initially diagnosed with non-ischemic CM ~ 4 yrs ago and was doing well on losartan and metoprolol. She had progressive sxs of dyspnea on exertion, therefore she was started on entresto and farxiga and her sxs persisted and she was admitted locally in [place] and then transferred to for ASSISTANT CENTER MANAGER consideration. Interval History: Sandra Schmitz was last [...] LVEF 40%, LVEdd 4.8cm. LBBB: chronic. S/p ASSISTANT CENTER MANAGER 07/2023 Non-obstructive CAD: stable, ischemic testing recently [...] on chronic systolic CHF (congestive heart failure) ([facility]) 05/30/2020: Aspiration pneumonia ([facility]) 05/03/2020: Chest pain 01/23/2013: Chest pressure 02/14/2021: Chronic diastolic congestive heart failure ([facility]) 09/28/2020: Clostridium difficile diarrhea No date: Complete uterovaginal prolapse No date: Cystocele, midline 06/14/2020: Essential hypertension 05/03/2020: Homozygous Factor V Leiden mutation ([facility]) No date: Hypothyroidism 01/23/2013: IBS (irritable bowel syn (more content not included)... Normal [facility] [id number] 01-15-2024 ECG01 Ventricular Rate : 7 0 BPM Atrial Rate : 70 BPM P-R Interval : 132 ms QRS Duration : 116 ms Q-T Interval : 462 ms QTC Calculation(Bazett) : 498 ms Calculated P [place] : 21 degrees Calculated R [place] : -61 degrees Calculated T [place] : 63 degrees NORMAL SINUS RHYTHM LEFT AXIS DEVIATION INFERIOR MYOCARDIAL INFARCTION , AGE UNDETERMINED ANTEROLATERAL INFARCTION , AGE UNDETERMINED ABNORMAL ECG Confirmed by AUGUSTINE WAN MD ([id number]) on 02/04/2024 10:18:22 AM NAME : SANDRA SCHMITZ PID : [id number] : 1945 Gender : Female Race : [...] PILI WELLS Acquired by : Terrie COPE [facility] CNOVon 01-04-2024 CNOV Office Visit (FAMPWS ) ----- SANDRA SCHMITZ ([id number]) 1945 [place]* Date Time Provider Department 01/04/24 4:20 PM [facility] During your visit today, we recorded [...] on chronic systolic CHF (congestive heart failure) ([facility]) 05/30/2020: Aspiration pneumonia ([facility]) 05/03/2020: Chest pain 01/23/2013: Chest pressure 02/14/2021: Chronic diastolic congestive heart failure ([facility]) 09/28/2020: Clostridium difficile diarrhea No date: Complete uterovaginal prolapse No date: Cystocele, midline 06/14/2020: Essential hypertension 05/03/2020: Homozygous Factor V Leiden mutation ([facility]) No date: Hypothyroidism 01/23/2013: [...] no c (more content not included)... Normal [facility] CBC W Auto Differential pane l (Bld)on 12-12-2023 Basophils (Bld) [#/Vol] 0.11 10*3/uL High <0.11 [facility] Comment on above: Order Comment: Speci men Type: BLOOD SPECIMENOrdering Facility: [facility] [place] Address: [address] [place] [address] Performed By: #### 5 7021-8, 4536-7 ####[facility] LABCLIA [id number] [place] [address] [place] Basophils/100 WBC (Bld) 1.2 % Normal [facility] Comment on above: Order Comment: Speci men Type: BLOOD SPECIMENOrdering Facility: [facility] [place] Address: [address] [place] [address] Performed By: #### 5 7021-8, 7 ####[facility] LABCLIA [id number] [place] [address] [place] Differential cell count method Nom (Bld) Auto Normal [facility] Comment on above: Order Comment: Speci men Type: BLOOD SPECIMENOrdering Facility: [facility] [place] Address: [address] [place] [address] Performed By: #### 5 7021-8, 7 ####[facility] LABCLIA [id number] [place] [address] [place] Eosinophils (Bld) [#/Vol] 0.20 10*3/uL Normal <0.46 [facility] Comment on above: Order Comment: Speci men Type: BLOOD SPECIMENOrdering Facility: [facility] [place] Address: [address] [place] [address] Performed By: #### 5 7021-8, 7 ####[facility] LABCLIA [id number] [place] [address] [place] Eosinophils/100 WBC (Bld) 2.1 % Normal [facility] Comment on above: Order Comment: Speci men Type: BLOOD SPECIMENOrdering Facility: [facility] [place] Address: [address] [place] [address] Performed By: #### 5 7021-8, 7 ####[facility] LABCLIA [id number] [address] [address] [place] Erythrocyte distribution width (RBC) [Ratio] 14.4 % Normal 11.5-15.0 [facility] Comment on above: Order Comment: Speci men Type: BLOOD SPECIMENOrdering Facility: [facility] [place] Address: [address] [place] [address] Performed By: #### 5 7021-8, 7 ####[facility] LABIA [id number] [place] [address] [place] Hematocrit (Bld) [Volume fraction] 40.5 % Normal 36.0-46.0 [facility] Comment on above: Order Comment: Speci men Type: BLOOD SPECIMENOrdering Facility: [facility] [place] Address: [address] [place] [address] Performed By: #### 5 7021-8, 7 ####[facility] LABIA [id number] [place] [id number] [place] Hemoglobin (Bld) [Mass/Vol] 12.6 g/dL Normal 11.5-15.5 [facility] Comment on above: Order Comment: Speci men Type: BLOOD SPECIMENOrdering Facility: [facility] [place] Address: [address] [place] [address] Performed By: #### 5 7021-8, 7 ####[facility] LABIA [id number] [address] [address] [place] Immature granulocytes (Bld) [#/Vol] 0.05 10*3/uL Normal <0.10 [facility] Comment on above: Order Comment: Speci men Type: BLOOD SPECIMENOrdering Facility: [facility] [place] Address: [address] [place] [address] Performed By: #### 5 7021-8, 4536-7 ####[facility] LABCLIA [id number] [place] [address] [place] Immature granulocytes/100 WBC (Bld) 0.5 % Normal [facility] Comment on above: Order Comment: Speci men Type: BLOOD SPECIMENOrdering Facility: [facility] [place] Address: [address] [place] [address] Performed By: #### 5 7021-8, 7 ####[facility] LABCLIA [id number] [place] [address] [place] Lymphocytes (Bld) [#/Vol] 3.55 10*3/uL Normal 1.00-4.00 [facility] Comment on above: Order Comment: Speci men Type: BLOOD SPECIMENOrdering Facility: [facility] [place] Address: [address] [place] [address] Performed By: #### 5 7021-8, 7 ####[facility] LABCLIA [id number] [place] [address] [place] Lymphocytes/100 WBC (Bld) 37.6 % Normal [facility] Comment on above: Order Comment: Speci men Type: BLOOD SPECIMENOrdering Facility: [facility] [place] Address: [address] [place] [address] Performed By: #### 5 7021-8, 7 ####[facility] LABCLIA [id number] [place] [address] [place] MCH (RBC) [Entitic mass] 28.8 pg Normal 26.0-34.0 [facility] Comment on above: Order Comment: Speci men Type: BLOOD SPECIMENOrdering Facility: [facility] [place] Address: [address] [place] [address] Performed By: #### 5 7021-8, 4536-7 ####[facility] LABCLIA [id number] [place] [id number] [place] MCHC (RBC) [Mass/Vol] 31.1 g/dL Normal 30.5-36.0 [facility] Comment on above: Order Comment: Speci men Type: BLOOD SPECIMENOrdering Facility: [facility] Address: [address] [place] [address] Performed By: #### 5 7021-8, 7-7 ####[facility] LABCLIA [id number] [place] [address] [place] MCV (RBC) [Entitic vol] 92.5 fL Normal 80.0-100.0 [facility] Comment on above: Order Comment: Speci men Type: BLOOD SPECIMENOrdering Facility: [facility] Address: [address] [place] [address] Performed By: #### 5 7021-8, 4537-7 ####[facility] LABCLIA [id number] [place] [address] [place] Monocytes (Bld) [#/Vol] 1.02 10*3/uL High <0.87 [facility] Comment on above: Order Comment: Speci men Type: BLOOD SPECIMENOrdering Facility: [facility] Address: [address] [place] [address] Performed By: #### 5 7021-8, 4536-7 ####[facility] LABCLIA [id number] [place] [address] [place] Monocytes/100 WBC (Bld) 10.8 % Normal [facility] Comment on above: Order Comment: Speci men Type: BLOOD SPECIMENOrdering Facility: [facility] [place] Address: [address] [place] [address] Performed By: #### 5 7021-8, 4537-7 ####[facility] LABCLIA [id number] [place] [id number] [place] Neutrophils (Bld) [#/Vol] 4.51 10*3/uL Normal 1.45-7.50 [facility] Comment on above: Order Comment: Speci men Type: BLOOD SPECIMENOrdering Facility: [facility] [place] Address: [address] [place] [address] Performed By: #### 5 7021-8, 4537-7 ####[facility] LABCLIA [id number] [place] [address] [place] Neutrophils/100 WBC (Bld) 47.8 % Normal [facility] Comment on above: Order Comment: Speci men Type: BLOOD SPECIMENOrdering Facility: [facility] [place] Address: [address] [place] [address] Performed By: #### 5 7021-8, 453-7 ####[facility] LABCLIA [id number] [place] [address] [place] Nucleated RBC (Bld) [#/Vol] 10*3/uL Normal <0.01 [facility] Comment on above: Order Comment: Speci men Type: BLOOD SPECIMENOrdering Facility: [facility] [place] Address: [address] [place] [address] Performed By: #### 5 7021-8, 4537-7 ####[facility] LABCLIA [id number] [place] [address] [place] Nucleated RBC/100 WBC (Bld) [Ratio] 0.0 /100 WBC Normal [facility] Comment on above: Order Comment: Speci men Type: BLOOD SPECIMENOrdering Facility: [facility] [place] Address: [address] [place] [address] Performed By: #### 5 7021-8, 4537-7 ####[facility] LABCLIA [id number] [place] [address] [place] Platelet mean volume (Bld) [Entitic vol] 10.5 fL Normal 9.0-12.7 [facility] Comment on above: Order Comment: Speci men Type: BLOOD SPECIMENOrdering Facility: [facility] [place] Address: [address] [place] [address] Performed By: #### 5 7021-8, 4537-7 ####[facility] LABCLIA [id number] [place] [address] [place] Platelets (Bld) [#/Vol] 328 10*3/uL Normal 150-400 [facility] Comment on above: Order Comment: Specjeffy jesus Type: BLOOD SPECIMENOrdering Facility: [facility] [place] Address: [address] [place] [address] Performed By: #### 5 7021-8, 4537-7 ####[facility] LABCLIA [id number] [place] [address] [place] RBC (Bld) [#/Vol] 4.38 10*6/uL Normal 3.90-5.20 [facility] Comment on above: Order Comment: Lenard jesus Type: BLOOD SPECIMENOrdering Facility: [facility] [place] Address: [address] [place] [address] Performed By: #### 5 7021-8, 4537-7 ####[facility] LABIA [id number] [place] [address] [place] WBC (Bld) [#/Vol] 9.44 10*3/uL Normal 3.70-11.00 [facility] Comment on above: Order Comment: Lenard jesus Type: BLOOD SPECIMENOrdering Facility: [facility] [place] Address: [address] [place] [address] Performed By: #### 5 7021-8, 4537-7 ####[facility] LABIA [id number] [place] [address] [place] CELIAC SCREENon 12-12-2023 GLIAD DEAMIDATED IGA QUAL Negative Normal Negative, Test not Indicated [facility] Comment on above: Order Comment: Lenard jesus Type: BLOOD SPECIMENOrdering Facility: [facility] [place] Address: [address] [place] [address] Result Comment: This is used as an aid in diagnosis of celiac disease. Clinical correlation is required. The following results were obtained with an [employer]ova QUANTA Lite Gliadin IgA BLAYNE Gliadin. Gliadin IgA values obtained with different manufacturers' assay methods may not be used interchangeably. The magnitude of the reported IgA levels cannot be correlated to an endpoint titer. Performed By: #### L [id number] ####[facility] LABCLIA [id number] [address] Gliadin peptide IgA Qn (S) 4 Units Normal <20 [facility] Comment on above: Order Comment: Speci men Type: BLOOD SPECIMENOrdering Facility: [facility] [place] Address: [address] [place] [address] Performed By: #### L [id number] ####[facility] LABCLIA [id number] [address] [place] INTERPRETATION No serological evide nce of celiac disease, however, if celiac disease is clinically suspected and patient is not on gluten-free diet, histological diagnosis may be considered. HLA testing may help with risk assessment. Normal [facility] Comment on above: Order Comment: Lenard jesus Type: BLOOD SPECIMENOrdering Facility: [facility] [place] Address: [address] [place] [address] Performed By: #### L [id number] ####[facility] LABCLIA [id number] [address] TRANSGLUTAMINASE IGA ABS INTERPRETATION Negative Normal Negative [facility] Comment on above: Order Comment: Lenard jesus Type: BLOOD SPECIMENOrdering Facility: [facility] [place] Address: [address] [place] [address] Result Comment: The following results were obtained with [employer] QUANTA Lite R h-tTG IgA BLAYNE.???R h-tTG IgA values obtained with different manufacturers' assay methods may not be used interchangeably. The magnitude of the reported IgA levels cannot be corelated to an endpoint???concentration. This is used as an aid in diagnosis of celiac disease. Clinical correlation is required. Performed By: #### L [id number] ####[facility] LABCLIA [id number] [place] [address] [place] tTG IgA Qn (S) <2 Normal <4 [facility] Comment on above: Order Comment: Speci men Type: BLOOD SPECIMENOrdering Facility: [facility] Address: [address] [place] [address] Performed By: #### L [id number] ####[facility] LABCLIA [id number] [address] [place] CNOVon 12-12-2023 CNOV Office Visit (FAMPWS ) ----- SANDRA SCHMITZ ([id number]) 1945 [place]* Date Time Provider Department 12/12/23 3:40 PM [facility] During your visit today, we recorded [...] on chronic systolic CHF (congestive heart failure) ([facility]) 05/30/2020: Aspiration pneumonia ([facility]) 05/03/2020: Chest pain 01/23/2013: Chest pressure 02/14/2021: Chronic diastolic congestive heart failure ([facility]) 09/28/2020: Clostridium difficile diarrhea No date: Complete uterovaginal prolapse No date: Cystocele, midline 06/14/2020: Essential hypertension 05/03/2020: Homozygous Factor V Leiden mutation ([facility]) No date: Hypothyroidism 01/23/2013: [...] fullness ri (more content not included)... Normal [facility] CRP SerPl-ncon 12-12-2023 CRP [Mass/Vol] 1.2 mg/dL High <0.9 [facility] Comment on above: Order Comment: Speci men Type: BLOOD SPECIMENOrdering Facility: [facility] Address: [address] [place], [place] [id number] Performed By: #### 2 4322-12, 1987-09 ####[facility] LABCLIA [id number] [address] [address] [place] Comprehensive metabolic 2000 panelon 12-12-2023 Albumin [Mass/Vol] 4.0 g/dL Normal 3.9-4.9 [facility] Comment on above: Order Comment: Speci men Type: BLOOD SPECIMENOrdering Facility: [facility] Address: [address] [place] [address] Performed By: #### 2 4322-12, 1987-09 ####[facility] LABCLIA [id number] [place] [address] [place] ALP [Catalytic activity/Vol] 68 U/L Normal 34-123 [facility] Comment on above: Order Comment: Speci men Type: BLOOD SPECIMENOrdering Facility: [facility] Address: [address] [place] [address] Performed By: #### 2 4322-12, 1987-09 ####[facility] LABCLIA [id number] [place] [address] [place] ALT [Catalytic activity/Vol] 11 U/L Normal 7-38 [facility] Comment on above: Order Comment: Speci men Type: BLOOD SPECIMENOrdering Facility: [facility] Address: [address] [place] [address] Performed By: #### 2 4322-12, 1987-09 ####[facility] LABCLIA [id number] [address] [address] [place] Anion gap [Moles/Vol] 12 mmol/L Normal 8-15 [facility] Comment on above: Order Comment: Speci men Type: BLOOD SPECIMENOrdering Facility: [facility] Address: [address] [place] [address] Performed By: #### 2 4322-12, 1987-09 ####[facility] LABCLIA [id number] [place] [address] [place] AST [Catalytic activity/Vol] 18 U/L Normal 13-35 [facility] Comment on above: Order Comment: Speci men Type: BLOOD SPECIMENOrdering Facility: [facility] Address: [address] [place] [address] Performed By: #### 2 4322-12, 1987-09 ####[facility] LABCLIA [id number] [place] [address] [place] Bilirubin [Mass/Vol] 0.3 mg/dL Normal 0.2-1.3 [facility] Comment on above: Order Comment: Speci men Type: BLOOD SPECIMENOrdering Facility: [facility] Address: [address] [place] [address] Performed By: #### 2 4322-12, 1987-09 ####[facility] LABCLIA [id number] [place] [address] [place] Calcium [Mass/Vol] 9.4 mg/dL Normal 8.5-10.2 [facility] Comment on above: Order Comment: Speci men Type: BLOOD SPECIMENOrdering Facility: [facility] Address: [address] [place] [address] Performed By: #### 2 4322-12, 1987-09 ####[facility] LABCLIA [id number] [place] [address] [place] Chloride [Moles/Vol] 103 mmol/L Normal 98-107 [facility] Comment on above: Order Comment: Speci men Type: BLOOD SPECIMENOrdering Facility: [facility] Address: [address] [place] [address] Performed By: #### 2 4322-12, 1987-09 ####[facility] LABCLIA [id number] [place] [address] [place] CO2 [Moles/Vol] 26 mmol/L Normal 22-30 [facility] Comment on above: Order Comment: Speci men Type: BLOOD SPECIMENOrdering Facility: [facility] ruiz Address: [address] [place] [address] Performed By: #### 2 4322-12, 1987-09 ####[facility] LABCLIA [id number] [address] [address] [place] Creatinine [Mass/Vol] 0.96 mg/dL Normal 0.58-0.96 [facility] Comment on above: Order Comment: Speci men Type: BLOOD SPECIMENOrdering Facility: [facility] Address: [address] [place] [address] Performed By: #### 2 4322-12, 1987-09 ####[facility] LABCLIA [id number] [place] [address] [place] Creatinine and Glomerular filtration rate.predicted panel (S/P/Bld) 61 mL/min/1.73m??? Normal >=60 [facility] Comment on above: Order Comment: Specjeffy jesus Type: BLOOD SPECIMENOrdering Facility: [facility] Address: [address] [place] [address] Result Comment: Aaron mated Glomerular Filtration Rate [...] GFR. Performed By: #### 2 4322-12, 1987-09 ####[facility] LABCLIA [id number] [address] [address] [place] Glucose [Mass/Vol] 82 mg/dL Normal 74-99 [facility] Comment on above: Order Comment: Speci edin Type: BLOOD SPECIMENOrdering Facility: [facility] Address: [address] [place] [address] Result Comment: The [place] Diabetes Association (ADA) provides guidance for cutoff [...] Standards of Medical Care in Diabetes 2016, [place] [employer]. Diabetes Care. 2016.39(Suppl 1). Performed By: #### 2 43207-19, 1987-09 ####[facility] LABCLIA [id number] [place] [address] [place] Potassium [Moles/Vol] 4.0 mmol/L Normal 3.7-5.1 [facility] Comment on above: Order Comment: Lenard jesus Type: BLOOD SPECIMENOrdering Facility: [facility] Address: [address] [place] [address] Performed By: #### 2 4322-12, 1987-09 ####[facility] LABIA [id number] [place] [address] [place] Protein [Mass/Vol] 7.2 g/dL Normal 6.3-8.0 [facility] Comment on above: Order Comment: Lenard jesus Type: BLOOD SPECIMENOrdering Facility: [facility] Address: [address] [place] [address] Performed By: #### 2 4322-12, 1987-09 ####[facility] LABCLIA [id number] [place] [address] [place] Sodium [Moles/Vol] 141 mmol/L Normal 136-144 [facility] Comment on above: Order Comment: Lenard jesus Type: BLOOD SPECIMENOrdering Facility: [facility] Address: [address] [place] [address] Performed By: #### 2 8, 1987-09 ####[facility] LABCLIA [id number] [place] [address] [place] Urea nitrogen [Mass/Vol] 22 mg/dL High 7-21 [facility] Comment on above: Order Comment: Speci edin Type: BLOOD SPECIMENOrdering Facility: [facility] Address: [address] [place] [address] Performed By: #### 2 4323-8, 1987-09 ####[facility] LABCLIA [id number] [place] [id number] [place] ESR Westergren method (Bld) [Velocity]on 12-12-2023 ESR (Bld) [Velocity] 32 mm/h High 0-20 [facility] Comment on above: Order Comment: Ernestinei edin Type: BLOOD SPECIMENOrdering Facility: [facility] Address: [address] [place] [address] Performed By: #### 5 7021-8, 4537-7 ####[facility] LABIA [id number] [address] [place] IgA SerPl-mCncon 12-12-2023 IgA [Mass/Vol] 177 mg/dL Normal 70-400 [facility] Comment on above: Order Comment: Lenard jesus Type: BLOOD SPECIMENOrdering Facility: [facility] Address: [address] [place] [address] Performed By: #### 2 458-8 ####[facility] LABCLIA [id number] [place] [id number] [place] Jayna 12-06-2023 TIMN Telephone (EDUARDO) ----- SANDRA SCHMITZ ([id number]) 1945 [place]* Date Time Provider Department 12/06/23 PLII WELLS During your visit today, we recorded the following information about you: Pili Wells MD 12/06/2023 6:51 PM Signed Echo results reviewed. LVEF remains stable, mitral regurgitation is improved. At this time we will continue with medications. No changes Helen Ramachandran RN 12/10/2023 11:41 AM Signed Pili Wells MD Va, Please call patient with results. She doesn't [...] right [M19.071] 08/02/2022 Coronary artery disease involving alutiiq lopez*08/02/2022 Vitamin D deficiency [E55.9] 08/02/2022 Somatic dysfunction of head region [M99.00] 08/10/2022 Chronic neck pain [M54.2, G89.29] 08/24/2022 Chronic bronchitis (HCC) [J42] 09/11/2022 SVT (supraventricular tachycardia) (HCC) (more content not included)... Normal [facility] ECHOon 12-05-2023 CONCLUSIONS: - Exam indication: [...] * * * Final * * * [facility] Echocardiography Report: Transthoracic Echo [facility] Date of service: 12/05/2023 1:16:13 PM Ordering physician: PILI WELLS Indication: Heart failure Technologist: Maritza Ahn [facility] Interpreting physician: Jim Gonzalez DO PATIENT: Name: MRS. SADNRA SCHMITZ : 1945 Age: 78 years Gender: F History of hypertension, dyslipidemia, heart failure with hospitalization, cardiomyopathy, coronary artery disease and arrhythmia. 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 Paced. Height: 160.02 [...] interventricular septum as detected by Doppler. KO [facility] Jayna 12-03-2023 CNPN Telephone (FAMPWS) ----- SANDRA SCHMITZ ([id number]) 1945 [place]* Date Time Provider Department 12/03/23 [facility] During your visit today, we recorded [...] states that order/letter should be faxed to [facility] Cardiac Rehab [phone]. Please review and advise, CARO Soria Jordan L, DO 12/05/2023 7:20 AM Signed Please create letter as below to hold cardiac rehab due to her back pain for 2-3 weeks DO Juana Gamez Kim E, LPN 12/05/2023 11:08 AM Signed letter completed and signed and faxed to [facility] cardiac rehab. Lillian Arias LPN Allergies [...] 07/18/2022 F (more content not included)... [facility] CNPN Telephone (PODCCP) ----- SANDRA SCHMITZ ([id number]) 1945 [place]* Date Time Provider Department 11/28/23 MANDEEP HOUSER PODCCJohn During your visit today, we recorded the following information about you: Concetta Dahl 11/28/2023 11:09 AM Signed Transitional Care Management (TCM) [facility] Monitoring Program Provider Action / FYI: N/A SUMMARY: Outreach type: FOLLOW-UP OUTREACH Discharge Network Status: In-Network Discharge Source of Patient: [facility] TCM Discharge Report Patient discharged from [facility] on 11/[facility]/23. Admitted for Pre-syncope. Contact made with patient: Yes, for Follow-up Outreach Hi, my name is Concetta Dahl. I am calling from the [facility] on behalf of your Primary [...] Center phone number to speak with a life care planner who can assist you with that appointment. [...] gout involv (more content not included)... Normal [facility] Jayna 11-23-2023 TIMN Telephone (PODCCP) ----- SANDRA SCHMITZ ([id number]) 1945 [place]* Date Time Provider Department 11/23/23 ROJAS PRAKASH PODCCP During your visit today, we recorded the following information about you: Rojas Prakash RN 11/23/2023 1:30 PM Signed Transitional Care Management (TCM) [facility] Monitoring Program Provider Action / FYI: na SUMMARY: Outreach type: INITIAL OUTREACH Discharge Network Status: In-Network Discharge Source of Patient: [facility] TCM Discharge Report Patient discharged from [facility] on 11.18.23. Admitted for Pre-syncope . Contact [...] right [M19.071] 08/02/2022 Coronary artery disease involving alutiiq lopez*08/02/2022 Vitamin D deficiency [E55.9] 08/02/2022 Somatic dysfunction of head region [M99.00] 08/10/2022 Chronic neck pain [M54.2, G89.29] 08/24/2022 Chronic bronchitis (HCC) [J42] 09/11/2022 SVT (supraventricular tachycardia) (HCC) [I47.1*09/11/2022 Combined systol (more content not included)... Normal [facility] CBC panel Auto (Bld)on 11-17 Erythrocyte distribution width (RBC) [Ratio] 14.1 % Normal 11.5-15.0 [facility] Comment on above: Order Comment: Speci men Type: BLOOD SPECIMENOrdering Facility: [facility] Address: [address] [place] [address] [place] [address] Performed By: #### 5 6085-2 ####[facility] LABORATORYCLIA [id number] [address] Hematocrit (Bld) [Volume fraction] 39.4 % Normal 36.0-46.0 [facility] Comment on above: Order Comment: Speci men Type: BLOOD SPECIMENOrdering Facility: [facility] Address: [address] [place] [address] Performed By: #### 5 8410-2 ####[facility] LABORATORYCLIA [id number] [address] Hemoglobin (Bld) [Mass/Vol] 12.5 g/dL Normal 11.5-15.5 [facility] Comment on above: Order Comment: Speci men Type: BLOOD SPECIMENOrdering Facility: [facility] Address: [address] [place] [address] Performed By: #### 5 8410-2 ####[facility] LABORATORYCLIA [id number] [address] MCH (RBC) [Entitic mass] 28.9 pg Normal 26.0-34.0 [facility] Comment on above: Order Comment: Speci men Type: BLOOD SPECIMENOrdering Facility: [facility] Address: [address] [place] [address] Performed By: #### 5 8410-2 ####KO LABORATORYCLIA [id number] [address] MCHC (RBC) [Mass/Vol] 31.7 g/dL Normal 30.5-36.0 [facility] Comment on above: Order Comment: Speci men Type: BLOOD SPECIMENOrdering Facility: [facility] Address: [address] [place] [address] Performed By: #### 5 8410-2 ####KO LABORATORYCLIA [id number] [address] MCV (RBC) [Entitic vol] 91.2 fL Normal 80.0-100.0 [facility] Comment on above: Order Comment: Speci men Type: BLOOD SPECIMENOrdering Facility: [facility] Address: [address] [place] [address] Performed By: #### 5 8410-2 ####KO LABORATORYCLIA [id number] [place] [address] [place] Nucleated RBC (Bld) [#/Vol] 10*3/uL Normal <0.01 [facility] Comment on above: Order Comment: Speci men Type: BLOOD SPECIMENOrdering Facility: [facility] Address: [address] [place] [address] Performed By: #### 5 8410-2 ####KO LABORATORYCLIA [id number] [place] [address] [place] Platelet mean volume (Bld) [Entitic vol] 10.1 fL Normal 9.0-12.7 [facility] Comment on above: Order Comment: Speci men Type: BLOOD SPECIMENOrdering Facility: [facility] Address: [address] [place] [address] Performed By: #### 5 8410-2 ####KO LABORATORYCLIA [id number] [place] [address] [place] Platelets (Bld) [#/Vol] 345 10*3/uL Normal 150-400 [facility] Comment on above: Order Comment: Speci men Type: BLOOD SPECIMENOrdering Facility: [facility] Address: [address] [place] [address] Performed By: #### 5 8410-2 ####KO LABORATORYCLIA [id number] [place] [address] [place] RBC (Bld) [#/Vol] 4.32 10*6/uL Normal 3.90-5.20 [facility] Comment on above: Order Comment: Speci men Type: BLOOD SPECIMENOrdering Facility: [facility] Address: [address] [place] [address] Performed By: #### 5 8410-2 ####KO LABORATORYCLIA [id number] [place] [address] [place] WBC (Bld) [#/Vol] 11.76 10*3/uL High 3.70-11.00 [facility] Comment on above: Order Comment: Speci men Type: BLOOD SPECIMENOrdering Facility: [facility] Address: [address] [place] [id number] Performed By: #### 5 8410-2 ####[facility] LABORATORYCLIA [id number] [place] [address] [place] CNCOon 11-18-2023 CNCO Letter Text Normal [facility] CNDSon 11-18-2023 CNDS HNO ID: [id number] Author: REMINGTON CAI MD Service: Hospital Medicine [...] Provider: Remington Cai MD Primary Service: , [facility] Consulting: Bentley Nolasco MD MY [...] [place], [address] [facility] [place] [address] PCP Requested Referral Follow-Up Appointment When: In 2 weeks Bentley Nolasco MD [phone] [facility] [address] [facility] [address] PCP Requested Referral Follow-Up Appointment When: In 2 weeks Angel Castro DO [phone] [address] [place] [address] PCP Requested Referral Additional Provider to Provider [...] [phone] (more content not included)... Normal [facility] CONSULTon 11-18-2023 CONSULT HNO ID: [id number] Author: BENTLEY NOLASCO MD Service: Gastroenterology Author [...] medical history significant for NICM/systolic CHF s/p ASSISTANT CENTER MANAGER-D, IBS, Factor V Leiden, HTN, HPL, hypothyroidism who presented to ED on 11/15/23 with episode of pre-syncope, facial tingling. Labs with MAYCOL, leukocytosis. [place] to be vasovagal episode. A GI evaluation [...] on chronic systolic CHF (congestive heart failure) ([facility]) 05/03/2020 Aspiration pneumonia ([facility]) 05/30/2020 Chest pain 05/03/2020 Chest pressure 01/23/2013 Chronic diastolic congestive heart failure ([facility]) 02/14/2021 Clostridium difficile diarrhea 09/28/2020 Complete uterovaginal prolapse Cystocele, midline Essential hypertension 06/14/2020 Homozygous Factor V Leiden mutation ([facility]) 05/03/2020 Hypothyroidism IBS (irritable [...] once daily., (more content not included)... Normal [facility] CRP SerPl-mCncon 11-18-2023 CRP [Mass/Vol] 1.2 mg/dL High <0.9 [facility] Comment on above: Order Comment: Speci men Type: BLOOD SPECIMENOrdering Facility: [facility] Address: [address] [place] [address] Performed By: #### 1 9123-9, 3016-3, 72492-3, 1987-09 ####KO LABORATORYCLIA [id number] [place] [address] [place] Comprehensive metabolic 2000 panelon 11-18-2023 Albumin [Mass/Vol] 3.8 g/dL Low 3.9-4.9 [facility] Comment on above: Order Comment: Speci men Type: BLOOD SPECIMENOrdering Facility: [facility] Address: [address] [place] [address] Performed By: #### 1 9123-9, 3015-3, , 1987-09 ####[facility] LABORATORYCLIA [id number] [place] [address] [place] ALP [Catalytic activity/Vol] 63 U/L Normal 34-123 [facility] Comment on above: Order Comment: Speci men Type: BLOOD SPECIMENOrdering Facility: [facility] Address: [address] [place] [address] Performed By: #### 1 9123-9, 3, , 1987-09 ####[facility] LABORATORYCLIA [id number] [place] [address] [place] ALT [Catalytic activity/Vol] 14 U/L Normal 7-38 [facility] Comment on above: Order Comment: Speci men Type: BLOOD SPECIMENOrdering Facility: [facility] Address: [address] [place] [address] Performed By: #### 1 9123-9, 3, , 1987-09 ####[facility] LABORATORYCLIA [id number] [place] [id number] [place] Anion gap [Moles/Vol] 7 mmol/L Low 8-15 [facility] Comment on above: Order Comment: Speci men Type: BLOOD SPECIMENOrdering Facility: [facility] Address: [address] [place] [address] Performed By: #### 1 9123-9, 3, , 1987-09 ####KO LABORATORYCLIA [id number] [place] [address] [place] AST [Catalytic activity/Vol] 15 U/L Normal 13-35 [facility] Comment on above: Order Comment: Speci men Type: BLOOD SPECIMENOrdering Facility: [facility] Address: [address] [place] [address] Performed By: #### 1 9123-9, 3, , 1987-09 ####KO LABORATORYCLIA [id number] [place] [address] [place] Bilirubin [Mass/Vol] 0.5 mg/dL Normal 0.2-1.3 [facility] Comment on above: Order Comment: Speci men Type: BLOOD SPECIMENOrdering Facility: [facility] Address: [facility] [address] Performed By: #### 1 9123-9, 3015-07, , 1987-09 ####[facility] LABORATORYCLIA [id number] [place] [address] [place] Calcium [Mass/Vol] 9.1 mg/dL Normal 8.5-10.2 [facility] Comment on above: Order Comment: Speci men Type: BLOOD SPECIMENOrdering Facility: [facility] Address: [facility] [address] [place] [id number] Performed By: #### 1 9123-9, 3015-07, , 1987-09 ####[facility] LABORATORYCLIA [id number] [place] [address] [place] Chloride [Moles/Vol] 104 mmol/L Normal 98-107 [facility] Comment on above: Order Comment: Speci men Type: BLOOD SPECIMENOrdering Facility: [facility] Address: [address] [place] [id number] Performed By: #### 1 9123-9, 3, , 1987-09 ####KO LABORATORYCLIA [id number] [place] [address] [place] CO2 [Moles/Vol] 29 mmol/L Normal 22-30 [facility] Comment on above: Order Comment: Speci men Type: BLOOD SPECIMENOrdering Facility: [facility] Address: [facility] [place] [address] Performed By: #### 1 9123-9, 6-3, , 1987-09 ####[facility] LABORATORYCLIA [id number] [place] [address] [place] [facility] Creatinine [Mass/Vol] 0.96 mg/dL Normal 0.58-0.96 [facility] Comment on above: Order Comment: Lenard jesus Type: BLOOD SPECIMENOrdering Facility: [facility] Address: [address] [place] [address] Performed By: #### 1 9123-9, 3015-3, , 1987-09 ####[facility] LABORATORYCLIA [id number] [place] [id number] [facility] Creatinine and Glomerular filtration rate.predicted panel (S/P/Bld) 61 mL/min/1.73m??? Normal >=60 [facility] Comment on above: Order Comment: [facility] Type: BLOOD SPECIMENOrdering Facility: [facility] Address: [address] [place] [address] Result Comment: Aaron mated Glomerular Filtration Rate [...] By: #### 1 9123-9, 3015-3, , 1987-09 ####[facility] LABORATORYCLIA [id number] [place] [id number] [place] [facility] Glucose [Mass/Vol] 81 mg/dL Normal 74-99 [facility] Comment on above: Order Comment: Lenard [facility] Type: BLOOD SPECIMENOrdering Facility: [facility] [facility] Address: [address] [place] [address] Result Comment: The [place] [employer] (ADA) provides guidance for cutoff [...] Standards of Medical Care in Diabetes 2016, [place] [employer]. Diabetes Care. 2016.39(Suppl 1). Performed By: #### 1 9123-9, 3, , 1987-09 ####KO LABORATORYCLIA [id number] [place] [address] [place] Potassium [Moles/Vol] 4.1 mmol/L Normal 3.7-5.1 [facility] Comment on above: Order Comment: Lenard jesus Type: BLOOD SPECIMENOrdering Facility: [facility] Address: [address] [place] [address] Performed By: #### 1 91239, 3015-07, , 1987-09 ####KO LABORATORYCLIA [id number] [place] [address] [place] Protein [Mass/Vol] 6.4 g/dL Normal 6.3-8.0 [facility] Comment on above: Order Comment: Lenard jesus Type: BLOOD SPECIMENOrdering Facility: [facility] Address: [address] [place] [address] Performed By: #### 1 9123-9, 3015-07, , 1987-09 ####KO LABORATORYCLIA [id number] [place] [id number] [place] Sodium [Moles/Vol] 140 mmol/L Normal 136-144 [facility] Comment on above: Order Comment: Lenard jesus Type: BLOOD SPECIMENOrdering Facility: [facility] Address: [address] [place] [address] Performed By: #### 1 9123-9, 3015-07, , 1987-09 ####KO LABORATORYCLIA [id number] [place] [address] [place] Urea nitrogen [Mass/Vol] 30 mg/dL High 7-21 [facility] Comment on above: Order Comment: Speci men Type: BLOOD SPECIMENOrdering Facility: [facility] Address: [address] [place] [address] [place] [id number] Performed By: #### 1 9123-9, 3, , 1987-09 ####KO LABORATORYCLIA [id number] [place] [address] [place] Magnesium SerPl-mCncon 11-17 Magnesium [Mass/Vol] 1.9 mg/dL Normal 1.7-2.3 [facility] Comment on above: Order Comment: Speci men Type: BLOOD SPECIMENOrdering Facility: [facility] Address: [address] [place] [address] Performed By: #### 1 9123-9, 3015-07, , 1987-09 ####[facility] LABORATORYCLIA [id number] [place] [address] [place] TSH SerPl-aCncon 11-18-2023 TSH Qn 3.520 m[IU]/L Normal 0.270-4.200 [facility] Comment on above: Order Comment: Speci men Type: BLOOD SPECIMENOrdering Facility: [facility] Address: [address] [place] [address] [place] [address] Performed By: #### 1 9123-9, 3015-07, , 1987-09 ####KO LABORATORYCLIA [id number] [place] [address] [place] CBC panel Auto (Bld)on 11-16 Erythrocyte distribution width (RBC) [Ratio] 14.2 % Normal 11.5-15.0 [facility] Comment on above: Order Comment: Speci men Type: BLOOD SPECIMENOrdering Facility: [facility] Address: [address] [place] [address] Performed By: #### 5 8410-2 ####[facility] LABORATORYCLIA [id number] [address] [place] Hematocrit (Bld) [Volume fraction] 36.8 % Normal 36.0-46.0 [facility] Comment on above: Order Comment: Speci men Type: BLOOD SPECIMENOrdering Facility: [facility] Address: [address] [place] [address] Performed By: #### 5 8410-2 ####KO LABORATORYCLIA [id number] [address] Hemoglobin (Bld) [Mass/Vol] 11.6 g/dL Normal 11.5-15.5 [facility] Comment on above: Order Comment: Speci men Type: BLOOD SPECIMENOrdering Facility: [facility] Address: [address] [place] [address] Performed By: #### 5 8410-2 ####KO LABORATORYCLIA [id number] [address] MCH (RBC) [Entitic mass] 29.1 pg Normal 26.0-34.0 [facility] Comment on above: Order Comment: Speci men Type: BLOOD SPECIMENOrdering Facility: [facility] Address: [address] [place] [address] Performed By: #### 5 8410-2 ####KO LABORATORYCLIA [id number] [address] MCHC (RBC) [Mass/Vol] 31.5 g/dL Normal 30.5-36.0 [facility] Comment on above: Order Comment: Speci men Type: BLOOD SPECIMENOrdering Facility: [facility] Address: [address] [place] [address] Performed By: #### 5 8410-2 ####KO LABORATORYCLIA [id number] [address] MCV (RBC) [Entitic vol] 92.2 fL Normal 80.0-100.0 [facility] Comment on above: Order Comment: Speci men Type: BLOOD SPECIMENOrdering Facility: [facility] Address: [address] [place] [address] Performed By: #### 5 8410-2 ####KO LABORATORYCLIA [id number] [address] Nucleated RBC (Bld) [#/Vol] 10*3/uL Normal <0.01 [facility] Comment on above: Order Comment: Speci men Type: BLOOD SPECIMENOrdering Facility: [facility] Address: [address] [place] [address] Performed By: #### 5 8410-2 ####KO LABORATORYCLIA [id number] [place] [address] [place] Platelet mean volume (Bld) [Entitic vol] 9.8 fL Normal 9.0-12.7 [facility] Comment on above: Order Comment: Speci men Type: BLOOD SPECIMENOrdering Facility: [facility] Address: [address] [place] [address] Performed By: #### 5 8410-2 ####KO LABORATORYCLIA [id number] [place] [address] [place] Platelets (Bld) [#/Vol] 321 10*3/uL Normal 150-400 [facility] Comment on above: Order Comment: Speci men Type: BLOOD SPECIMENOrdering Facility: [facility] Address: [address] [place] [address] Performed By: #### 5 8410-2 ####KO LABORATORYCLIA [id number] [place] [address] [place] RBC (Bld) [#/Vol] 3.99 10*6/uL Normal 3.90-5.20 [facility] Comment on above: Order Comment: Speci men Type: BLOOD SPECIMENOrdering Facility: [facility] Address: [address] [place] [address] Performed By: #### 5 8410-2 ####KO LABORATORYCLIA [id number] [place] [address] [place] WBC (Bld) [#/Vol] 9.28 10*3/uL Normal 3.70-11.00 [facility] Comment on above: Order Comment: Speci men Type: BLOOD SPECIMENOrdering Facility: [facility] Address: [address] [place] [address] Performed By: #### 5 8410-2 ####KO LABORATORYCLIA [id number] [place] [address] [place] Comprehensive metabolic 2000 panelon 11-17-2023 Albumin [Mass/Vol] 3.5 g/dL Low 3.9-4.9 [facility] Comment on above: Order Comment: Speci men Type: BLOOD SPECIMENOrdering Facility: [facility] Address: [address] [place] [address] Performed By: #### 2 432-8, ####KO LABORATORYCLIA [id number] [place] [address] [place] ALP [Catalytic activity/Vol] 56 U/L Normal 34-123 [facility] Comment on above: Order Comment: Speci men Type: BLOOD SPECIMENOrdering Facility: [facility] Address: [address] [place] [address] Performed By: #### 2 4322-8, ####KO LABORATORYCLIA [id number] [address] [place] ALT [Catalytic activity/Vol] 16 U/L Normal 7-38 [facility] Comment on above: Order Comment: Speci men Type: BLOOD SPECIMENOrdering Facility: [facility] Address: [address] [place] [address] Performed By: #### 2 8, ####KO LABORATORYCLIA [id number] [address] [place] Anion gap [Moles/Vol] 5 mmol/L Low 8-15 [facility] Comment on above: Order Comment: Speci men Type: BLOOD SPECIMENOrdering Facility: [facility] Address: [address] [place] [address] Performed By: #### 2 4322-8, ####KO LABORATORYCLIA [id number] [place] [id number] [place] AST [Catalytic activity/Vol] 16 U/L Normal 13-35 [facility] Comment on above: Order Comment: Speci men Type: BLOOD SPECIMENOrdering Facility: [facility] Address: [address] [place] [address] Performed By: #### 2 4322-8, 81439-7 ####KO LABORATORYCLIA [id number] [place] [address] [place] Bilirubin [Mass/Vol] 0.4 mg/dL Normal 0.2-1.3 [facility] Comment on above: Order Comment: Speci men Type: BLOOD SPECIMENOrdering Facility: [facility] Address: [address] [place] [address] Performed By: #### 2 4323-8, ####KO LABORATORYCLIA [id number] [place] [address] [place] Calcium [Mass/Vol] 8.5 mg/dL Normal 8.5-10.2 [facility] Comment on above: Order Comment: Speci men Type: BLOOD SPECIMENOrdering Facility: [facility] Address: [address] [place] [address] Performed By: #### 2 4323-8, ####KO LABORATORYCLIA [id number] [place] [address] [place] Chloride [Moles/Vol] 110 mmol/L High 98-107 [facility] Comment on above: Order Comment: Speci men Type: BLOOD SPECIMENOrdering Facility: [facility] Address: [address] [place] [address] Performed By: #### 2 4323-8, ####KO LABORATORYCLIA [id number] [place] [address] [place] CO2 [Moles/Vol] 28 mmol/L Normal 22-30 [facility] Comment on above: Order Comment: Speci men Type: BLOOD SPECIMENOrdering Facility: [facility] Address: [address] [place] [address] Performed By: #### 2 4323-8, ####KO LABORATORYCLIA [id number] [place] [address] [place] Creatinine [Mass/Vol] 1.05 mg/dL High 0.58-0.96 [facility] Comment on above: Order Comment: Speci men Type: BLOOD SPECIMENOrdering Facility: [facility] Address: [address] [place] [address] Performed By: #### 2 4323-8, ####KO LABORATORYCLIA [id number] [place] [address] [place] Creatinine and Glomerular filtration rate.predicted panel (S/P/Bld) 55 mL/min/1.73m??? Low >=60 [facility] Comment on above: Order Comment: Lenard jesus Type: BLOOD SPECIMENOrdering Facility: [facility] Address: [address] [place] [address] Result Comment: Aaron mated Glomerular Filtration Rate [...] Performed By: #### 2 4323-8, ####KO LABORATORYCLIA [id number] [place] [id number] [place] Glucose [Mass/Vol] 79 mg/dL Normal 74-99 [facility] Comment on above: Order Comment: Lenard jesus Type: BLOOD SPECIMENOrdering Facility: [facility] Address: [address] [place] [address] Result Comment: The [place] [employer] (ADA) provides guidance for cutoff [...] Standards of Medical Care in Diabetes 2016, [place] [employer]. Diabetes Care. 2016.39(Suppl 1). Performed By: #### 2 4323-8, ####KO LABORATORYCLIA [id number] [place] [address] [place] Potassium [Moles/Vol] 4.8 mmol/L Normal 3.7-5.1 [facility] Comment on above: Order Comment: Speci men Type: BLOOD SPECIMENOrdering Facility: [facility] Address: [address] [place] [id number] Performed By: #### 2 4323-8, ####KO LABORATORYCLIA [id number] [place] [address] [place] Protein [Mass/Vol] 6.0 g/dL Low 6.3-8.0 [facility] Comment on above: Order Comment: Speci men Type: BLOOD SPECIMENOrdering Facility: [facility] Address: [address] [place] [address] [place] [address] Performed By: #### 2 432-8, ####KO LABORATORYCLIA [id number] [place] [address] [place] Sodium [Moles/Vol] 143 mmol/L Normal 136-144 [facility] Comment on above: Order Comment: Speci men Type: BLOOD SPECIMENOrdering Facility: [facility] Address: [address] [place] [address] Performed By: #### 2 4323-8, ####KO LABORATORYCLIA [id number] [place] [address] [place] Urea nitrogen [Mass/Vol] 34 mg/dL High 7-21 [facility] Comment on above: Order Comment: Speci men Type: BLOOD SPECIMENOrdering Facility: [facility] Address: [address] [place] [address] Performed By: #### 2 4323-8, ####KO LABORATORYCLIA [id number] [place] [address] [place] Magnesium SerPl-mCncon 11-16 Magnesium [Mass/Vol] 2.0 mg/dL Normal 1.7-2.3 [facility] Comment on above: Order Comment: Speci men Type: BLOOD SPECIMENOrdering Facility: [facility] Address: [address] [place] [address] Performed By: #### 2 432-8, ####KO LABORATORYCLIA [id number] [address] CBC panel Auto (Bld)on 11-15 Erythrocyte distribution width (RBC) [Ratio] 14.3 % Normal 11.5-15.0 [facility] Comment on above: Order Comment: Speci men Type: BLOOD SPECIMENOrdering Facility: [facility] Address: [address] [place] [address] Performed By: #### 5 8410-2 ####KO LABORATORYCLIA [id number] [address] Hematocrit (Bld) [Volume fraction] 37.4 % Normal 36.0-46.0 [facility] Comment on above: Order Comment: Speci men Type: BLOOD SPECIMENOrdering Facility: [facility] Address: [address] [place] [address] Performed By: #### 5 8410-2 ####KO LABORATORYCLIA [id number] [address] Hemoglobin (Bld) [Mass/Vol] 11.8 g/dL Normal 11.5-15.5 [facility] Comment on above: Order Comment: Speci men Type: BLOOD SPECIMENOrdering Facility: [facility] Address: [address] [place] [address] Performed By: #### 5 8410-2 ####KO LABORATORYCLIA [id number] [address] MCH (RBC) [Entitic mass] 28.9 pg Normal 26.0-34.0 [facility] Comment on above: Order Comment: Speci men Type: BLOOD SPECIMENOrdering Facility: [facility] Address: [address] [place] [address] Performed By: #### 5 8410-2 ####KO LABORATORYCLIA [id number] [address] MCHC (RBC) [Mass/Vol] 31.6 g/dL Normal 30.5-36.0 [facility] Comment on above: Order Comment: Speci men Type: BLOOD SPECIMENOrdering Facility: [facility] Address: [address] [place] [address] Performed By: #### 5 8410-2 ####KO LABORATORYCLIA [id number] [address] [place] MCV (RBC) [Entitic vol] 91.4 fL Normal 80.0-100.0 [facility] Comment on above: Order Comment: Speci men Type: BLOOD SPECIMENOrdering Facility: [facility] Address: [address] [place] [address] Performed By: #### 5 8410-2 ####KO LABORATORYCLIA [id number] [address] Nucleated RBC (Bld) [#/Vol] 10*3/uL Normal <0.01 [facility] Comment on above: Order Comment: Speci men Type: BLOOD SPECIMENOrdering Facility: [facility] Address: [address] [place] [address] Performed By: #### 5 8410-2 ####KO LABORATORYCLIA [id number] [address] [place] Platelet mean volume (Bld) [Entitic vol] 10.1 fL Normal 9.0-12.7 [facility] Comment on above: Order Comment: Speci men Type: BLOOD SPECIMENOrdering Facility: [facility] Address: [address] [place] [address] Performed By: #### 5 8410-2 ####KO LABORATORYCLIA [id number] [address] [place] Platelets (Bld) [#/Vol] 356 10*3/uL Normal 150-400 [facility] Comment on above: Order Comment: Speci men Type: BLOOD SPECIMENOrdering Facility: [facility] Address: [address] [place] [address] Performed By: #### 5 8410-2 ####KO LABORATORYCLIA [id number] [place] [address] [facility] [place] RBC (Bld) [#/Vol] 4.09 10*6/uL Normal 3.90-5.20 [facility] Comment on above: Order Comment: Speci men Type: BLOOD SPECIMENOrdering Facility: [facility] Address: [address] [place] [address] Performed By: #### 5 8410-2 ####KO LABORATORYCLIA [id number] [place], [place] [address] [place] [address] [facility] WBC (Bld) [#/Vol] 13.58 10*3/uL High 3.70-11.00 [facility] Comment on above: Order Comment: Speci men Type: BLOOD SPECIMENOrdering Facility: [facility] Address: [address] [place] [address] [place] [id number] Performed By: #### 5 8410-2 ####KO LABORATORYCLIA [id number] [address] Comprehensive metabolic 2000 panelon 11-16-2023 Albumin [Mass/Vol] 3.4 g/dL Low 3.9-4.9 [facility] Comment on above: Order Comment: Speci men Type: BLOOD SPECIMENOrdering Facility: [facility] Address: [address] [place], [place] [address] [id number] Performed By: #### 2 4323-8, ####KO LABORATORYCLIA [id number] [address] OF [facility] ALP [Catalytic activity/Vol] 58 U/L Normal 34-123 [facility] Comment on above: Order Comment: Speci men Type: BLOOD SPECIMENOrdering Facility: [facility] Address: [address] [place] [id number] Performed By: #### 2 4323-8, 51451-1 ####KO LABORATORYCLIA [id number] [place] [id number] [facility] ALT [Catalytic activity/Vol] 15 U/L Normal 7-38 [facility] Comment on above: Order Comment: Speci men Type: BLOOD SPECIMENOrdering Facility: [facility] Address: [address] [place] [id number] Performed By: #### 2 4323-8, 28973-5 ####KO LABORATORYCLIA [id number] [place] [id number] [facility] [place] Anion gap [Moles/Vol] 10 mmol/L Normal 8-15 [facility] Comment on above: Order Comment: Speci men Type: BLOOD SPECIMENOrdering Facility: [facility] Address: [address] [place] [address] Performed By: #### 2 4323-8, ####KO LABORATORYCLIA [id number] [address] [place] AST [Catalytic activity/Vol] 16 U/L Normal 13-35 [facility] Comment on above: Order Comment: Speci men Type: BLOOD SPECIMENOrdering Facility: [facility] Address: [address] [place], [place] [address] [address] Performed By: #### 2 432-8, ####KO LABORATORYCLIA [id number] [address] [place] Bilirubin [Mass/Vol] 0.3 mg/dL Normal 0.2-1.3 [facility] Comment on above: Order Comment: Speci men Type: BLOOD SPECIMENOrdering Facility: [facility] Address: [address] [place] [address] Performed By: #### 2 8, ####KO LABORATORYCLIA [id number] [address] [place] Calcium [Mass/Vol] 8.6 mg/dL Normal 8.5-10.2 [facility] Comment on above: Order Comment: Speci men Type: BLOOD SPECIMENOrdering Facility: [facility] Address: [address] [place] [address] Performed By: #### 2 432-8, ####KO LABORATORYCLIA [id number] [place] [address] [place] Chloride [Moles/Vol] 105 mmol/L Normal 98-107 [facility] Comment on above: Order Comment: Speci men Type: BLOOD SPECIMENOrdering Facility: [facility] Address: [address] [place] [address] Performed By: #### 2 432-8, ####KO LABORATORYCLIA [id number] [place] [id number] [place] CO2 [Moles/Vol] 25 mmol/L Normal 22-30 [facility] Comment on above: Order Comment: Lenard jesus Type: BLOOD SPECIMENOrdering Facility: [facility] Address: [address] [place] [address] Performed By: #### 2 4323-8, ####KO LABORATORYCLIA [id number] [place] [address] [place] Creatinine [Mass/Vol] 1.28 mg/dL High 0.58-0.96 [facility] Comment on above: Order Comment: Speci men Type: BLOOD SPECIMENOrdering Facility: [facility] Address: [address] [place] [address] Performed By: #### 2 4323-8, ####KO LABORATORYCLIA [id number] [address] Creatinine and Glomerular filtration rate.predicted panel (S/P/Bld) 43 mL/min/1.73m??? Low >=60 [facility] Comment on above: Order Comment: Speci men Type: BLOOD SPECIMENOrdering Facility: [facility] Address: [address] [place] [address] Result Comment: Aaron mated Glomerular Filtration Rate [...] Performed By: #### 2 4323-8, ####KO LABORATORYCLIA [id number] [place] [id number] [place] Glucose [Mass/Vol] 121 mg/dL High 74-99 [facility] Comment on above: Order Comment: Ernestinei edin Type: BLOOD SPECIMENOrdering Facility: [facility] Address: [address] [place] [address] Result Comment: The [place] [employer] (ADA) provides guidance for cutoff [...] Standards of Medical Care in Diabetes 2016, [place] [employer]. Diabetes Care. 2016.39(Suppl 1). Performed By: #### 2 4328, ####KO LABORATORYCLIA [id number] [place] [address] [place] Potassium [Moles/Vol] 4.7 mmol/L Normal 3.7-5.1 [facility] Comment on above: Order Comment: Lenard jesus Type: BLOOD SPECIMENOrdering Facility: [facility] Address: [address] [place] [address] Performed By: #### 2 4322-12, ####KO LABORATORYCLIA [id number] [place] [address] [place] Protein [Mass/Vol] 6.3 g/dL Normal 6.3-8.0 [facility] Comment on above: Order Comment: Lenard jesus Type: BLOOD SPECIMENOrdering Facility: [facility] Address: [address] [place] [address] Performed By: #### 2 4322-12, ####KO LABORATORYCLIA [id number] [place] [address] [place] Sodium [Moles/Vol] 140 mmol/L Normal 136-144 [facility] Comment on above: Order Comment: Lenard jesus Type: BLOOD SPECIMENOrdering Facility: [facility] Address: [address] [place] [address] Performed By: #### 2 4328, ####KO LABORATORYCLIA [id number] [place] [address] [place] Urea nitrogen [Mass/Vol] 46 mg/dL High 7-21 [facility] Comment on above: Order Comment: Speci men Type: BLOOD SPECIMENOrdering Facility: [facility] Address: [address] [place], [place] [address] Performed By: #### 2 4323-8, 87199-7 ####[facility] LABORATORYCLIA [id number] [place] [address] [facility] [place] Magnesium SerPl-mCncon 11-15 Magnesium [Mass/Vol] 2.1 mg/dL Normal 1.7-2.3 [facility] Comment on above: Order Comment: Speci men Type: BLOOD SPECIMENOrdering Facility: [facility] Address: [address] [place] [address] Performed By: #### 2 4323-8, ####[facility] LABORATORYCLIA [id number] [place] [address] [facility] NURSING PROGon 11-16-2023 NURSING PROG HNO ID: [id number] Author: MISTY ASCENCIO, CARO Service: Nursing Author Type: Registered Nurse Type: Nursing Progress Note Filed: 11/16/2023 14:15 Note Text: PATIENT EDUCATION HEART FAILURE PATIENT NAME: Sandra Schmitz PATIENT LOCATION: [place] [address] [address] SURVIVAL SKILLS: Low Sodium Diet Weight Monitoring [...] rehab post insertion of pacemaker/defib. 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 States she missed her echo [...] (RECOMMENDATION): Cardiology Electronically Signed By: Misty Asc[facility]io [facility] HNO ID: [id number] Author: JESUS PADILLA RT(R) Service: Radiology Author [...] PATIENT PRESENTS WITH AN IMPLANTABLE OR ATTACHED FOOD TECHNOLOGIST: No RADIOLOGY DEPARTMENT: General X-ray: Exam(s) Completed: Chest X-Ray PERIPHERAL IV DATA: Not applicable SIGNED BY: RT William(R) November 15, 2023 8:26 PM [facility] HNO ID: [id number] Author: MASON VAIL RT(R) Service: Radiology Author [...] PATIENT PRESENTS WITH AN IMPLANTABLE OR ATTACHED FOOD TECHNOLOGIST: No RADIOLOGY DEPARTMENT: CT; Exam(s) Completed: Abdomen/Pelvis and Brain PERIPHERAL IV DATA: Inpatient: see LDA documentation SIGNED BY: RT Dominique(R) November 15, 2023 8:05 PM Normal [facility] CBC W Auto Differential pane l (Bld)on 11-15-2023 Basophils (Bld) [#/Vol] 0.10 10*3/uL Normal <0.11 [facility] Comment on above: Order Comment: Speci men Type: BLOOD SPECIMENOrdering Facility: [facility] Address: [address] [place] [address] Performed By: #### 5 7021-8 ####KO LABORATORYCLIA [id number] [place] [address] [place] Basophils/100 WBC (Bld) 0.6 % Normal [facility] Comment on above: Order Comment: Speci men Type: BLOOD SPECIMENOrdering Facility: [facility] Address: [address] [place] [address] Performed By: #### 5 7021-8 ####KO LABORATORYCLIA [id number] [place] [address] [place] Differential cell count method Nom (Bld) Auto Normal [facility] Comment on above: Order Comment: Speci men Type: BLOOD SPECIMENOrdering Facility: [facility] Address: [address] [place] [address] Performed By: #### 5 7021-8 ####KO LABORATORYCLIA [id number] [address] [place] Eosinophils (Bld) [#/Vol] 0.22 10*3/uL Normal <0.46 [facility] Comment on above: Order Comment: Speci men Type: BLOOD SPECIMENOrdering Facility: [facility] Address: [address] [place] [address] Performed By: #### 5 7021-8 ####KO LABORATORYCLIA [id number] [address] Eosinophils/100 WBC (Bld) 1.4 % Normal [facility] Comment on above: Order Comment: Speci men Type: BLOOD SPECIMENOrdering Facility: [facility] Address: [address] [place] [address] Performed By: #### 5 7021-8 ####KO LABORATORYCLIA [id number] [address] [place] Erythrocyte distribution width (RBC) [Ratio] 14.3 % Normal 11.5-15.0 [facility] Comment on above: Order Comment: Speci men Type: BLOOD SPECIMENOrdering Facility: [facility] Address: [address] [place] [address] Performed By: #### 5 7021-8 ####KO LABORATORYCLIA [id number] [address] Hematocrit (Bld) [Volume fraction] 43.3 % Normal 36.0-46.0 [facility] Comment on above: Order Comment: Speci men Type: BLOOD SPECIMENOrdering Facility: [facility] Address: [address] [place] [address] Performed By: #### 5 7021-8 ####KO LABORATORYCLIA [id number] [address] [place] Hemoglobin (Bld) [Mass/Vol] 13.8 g/dL Normal 11.5-15.5 [facility] Comment on above: Order Comment: Speci men Type: BLOOD SPECIMENOrdering Facility: [facility] Address: [address] [place] [address] Performed By: #### 5 7021-8 ####KO LABORATORYCLIA [id number] [place] [address] [place] Immature granulocytes (Bld) [#/Vol] 0.25 10*3/uL High <0.10 [facility] Comment on above: Order Comment: Speci men Type: BLOOD SPECIMENOrdering Facility: [facility] Address: [address] [place] [address] Performed By: #### 5 7021-8 ####KO LABORATORYCLIA [id number] [address] [place] [facility] Immature granulocytes/100 WBC (Bld) 1.6 % Normal [facility] Comment on above: Order Comment: Speci men Type: BLOOD SPECIMENOrdering Facility: [facility] Address: [address] [place] [address] Performed By: #### 5 7021-8 ####KO LABORATORYCLIA [id number] [address] [place] Lymphocytes (Bld) [#/Vol] 2.35 10*3/uL Normal 1.00-4.00 [facility] Comment on above: Order Comment: Speci men Type: BLOOD SPECIMENOrdering Facility: [facility] Address: [address] [place] [address] Performed By: #### 5 7021-8 ####KO LABORATORYCLIA [id number] [address] Lymphocytes/100 WBC (Bld) 15.0 % Normal [facility] Comment on above: Order Comment: Speci men Type: BLOOD SPECIMENOrdering Facility: [facility] Address: [address] [place] [address] Performed By: #### 5 7021-8 ####KO LABORATORYCLIA [id number] [place] [address] [place] MCH (RBC) [Entitic mass] 29.3 pg Normal 26.0-34.0 [facility] Comment on above: Order Comment: Speci men Type: BLOOD SPECIMENOrdering Facility: [facility] Address: [address] [place] [address] Performed By: #### 5 7021-8 ####KO LABORATORYCLIA [id number] [place] [id number] [place] MCHC (RBC) [Mass/Vol] 31.9 g/dL Normal 30.5-36.0 [facility] Comment on above: Order Comment: Speci men Type: BLOOD SPECIMENOrdering Facility: [facility] Address: [address] [place] [address] Performed By: #### 5 7021-8 ####KO LABORATORYCLIA [id number] [place] [address] [place] MCV (RBC) [Entitic vol] 91.9 fL Normal 80.0-100.0 [facility] Comment on above: Order Comment: Speci men Type: BLOOD SPECIMENOrdering Facility: [facility] Address: [address] [place] [address] Performed By: #### 5 7021-8 ####KO LABORATORYCLIA [id number] [place] [address] [place] Monocytes (Bld) [#/Vol] 1.05 10*3/uL High <0.87 [facility] Comment on above: Order Comment: Speci men Type: BLOOD SPECIMENOrdering Facility: [facility] Address: [address] [place] [address] Performed By: #### 5 7021-8 ####KO LABORATORYCLIA [id number] [address] Monocytes/100 WBC (Bld) 6.7 % Normal [facility] Comment on above: Order Comment: Speci men Type: BLOOD SPECIMENOrdering Facility: [facility] Address: [address] [place] [address] Performed By: #### 5 7021-8 ####KO LABORATORYCLIA [id number] [place] [id number] [place] Neutrophils (Bld) [#/Vol] 11.69 10*3/uL High 1.45-7.50 [facility] Comment on above: Order Comment: Speci men Type: BLOOD SPECIMENOrdering Facility: [facility] Address: [address] [place] [address] Performed By: #### 5 7021-8 ####KO LABORATORYCLIA [id number] [address] Neutrophils/100 WBC (Bld) 74.7 % Normal [facility] Comment on above: Order Comment: Speci men Type: BLOOD SPECIMENOrdering Facility: [facility] Address: [address] [place] [address] Performed By: #### 5 7021-8 ####KO LABORATORYCLIA [id number] [place] [address] [place] Nucleated RBC (Bld) [#/Vol] 10*3/uL Normal <0.01 [facility] Comment on above: Order Comment: Speci men Type: BLOOD SPECIMENOrdering Facility: [facility] Address: [address] [place] [address] Performed By: #### 5 7021-8 ####KO LABORATORYCLIA [id number] [address] STATES [facility] Nucleated RBC/100 WBC (Bld) [Ratio] 0.0 /100 WBC Normal [facility] Comment on above: Order Comment: Speci men Type: BLOOD SPECIMENOrdering Facility: [facility] Address: [address] [place] [address] Performed By: #### 5 7021-8 ####KO LABORATORYCLIA [id number] [address] [place] Platelet mean volume (Bld) [Entitic vol] 10.4 fL Normal 9.0-12.7 [facility] Comment on above: Order Comment: Speci men Type: BLOOD SPECIMENOrdering Facility: [facility] Address: [address] [place] [address] Performed By: #### 5 7021-8 ####KO LABORATORYCLIA [id number] [address] [place] Platelets (Bld) [#/Vol] 386 10*3/uL Normal 150-400 [facility] Comment on above: Order Comment: Speci men Type: BLOOD SPECIMENOrdering Facility: [facility] Address: [address] [facility] [place] [address] Performed By: #### 5 7021-8 ####KO LABORATORYCLIA [id number] [place] [address] [place] RBC (Bld) [#/Vol] 4.71 10*6/uL Normal 3.90-5.20 [facility] Comment on above: Order Comment: Speci men Type: BLOOD SPECIMENOrdering Facility: [facility] Address: [address] [place] [address] Performed By: #### 5 7021-8 ####KO LABORATORYCLIA [id number] [place] [address] [place] WBC (Bld) [#/Vol] 15.66 10*3/uL High 3.70-11.00 [facility] Comment on above: Order Comment: Speci men Type: BLOOD SPECIMENOrdering Facility: [facility] Address: [address] [place] [address] Performed By: #### 5 7021-8 ####[facility] LABORATORYCLIA [id number] [address] OF [facility] CT ABD/PEL WO IVCONon 2023 CT ABD/PEL WO IVCON * * *Final Report* * * DATE OF EXAM: Nov 15 2023 8:16PM [facility] 0531 - CT ABD/PEL WO IVCON / [...] Additional findings as detailed in the report. Night Clerk: PSCB Transcribe Date/Time: Nov 15 2023 8:42P Dictated by : PATRICIA GARCÍA MD This examination was interpreted and the report reviewed and electronically signed by: PATRICIA GARCÍA MD on Nov 15 2023 8:44PM EST [id number] [facility] CT BRAIN WO IVCONon 11-15-19 CT BRAIN WO IVCON * * *Final Report* * * DATE OF EXAM: Nov 15 2023 8:16PM [facility] 0504 - CT BRAIN WO IVCON / [...] parenchymal volume loss. Additional findings as detailed. Night Clerk: KEYANA Transcribe Date/Time: Nov 15 2023 8:44P Dictated by : PATRICIA GARCÍA MD This examination was interpreted and the report reviewed and electronically signed by: PATRICIA GARCÍA MD on Nov 15 2023 8:46PM EST [id number] Normal [facility] Comprehensive metabolic 2000 panelon 11-15-2023 Albumin [Mass/Vol] 3.9 g/dL Normal 3.9-4.9 [facility] Comment on above: Order Comment: Lenard jesus Type: BLOOD SPECIMENOrdering Facility: [facility] Address: [address] [place] [address] Performed By: #### 2 4323-8, 3040-3, 12155-6, 56793-6, [id number] ####[facility] LABORATORYCLIA [id number] [place] [address] [place] ALP [Catalytic activity/Vol] 64 U/L Normal 34-123 [facility] Comment on above: Order Comment: Lenard jesus Type: BLOOD SPECIMENOrdering Facility: [facility] Address: [address] [place] [address] Performed By: #### 2 4323-8, 3040-3, 10878-1, 21187-7, [id number] ####H[facility] LABORATORYCLIA [id number] [place] [id number] [place] ALT [Catalytic activity/Vol] 14 U/L Normal 7-38 [facility] Comment on above: Order Comment: Lenard jesus Type: BLOOD SPECIMENOrdering Facility: [facility] Address: [address] [place] [address] Performed By: #### 2 4323-8, 3040-3, 64247-4, 42134-2, [id number] ####[facility] LABORATORYCLIA [id number] [place] [address] [place] Anion gap [Moles/Vol] 11 mmol/L Normal 8-15 [facility] Comment on above: Order Comment: Speci men Type: BLOOD SPECIMENOrdering Facility: [facility] Address: [address] [place] [address] Performed By: #### 2 4323-8, 3040-3, 95939-9, 67622-5, [id number] ####H[facility] LABORATORYCLIA [id number] [place] [address] [place] AST [Catalytic activity/Vol] Normal [facility] Comment on above: Order Comment: Speci men Type: BLOOD SPECIMENOrdering Facility: [facility] Address: [address] [place] [address] Result Comment: Unab le to assay due to interference from hemolysis. Suggest reorder as clinically indicated. Performed By: #### 2 4323-8, 3040-3, 89892-5, 18787-1, [id number] ####H[facility] LABORATORYCLIA [id number] [place] [address] [place] Bilirubin [Mass/Vol] 0.3 mg/dL Normal 0.2-1.3 [facility] Comment on above: Order Comment: Speci men Type: BLOOD SPECIMENOrdering Facility: [facility] Address: [address] [place] [address] Performed By: #### 2 4323-8, 3040-3, 91452-0, 90831-3, [id number] ####H[facility] LABORATORYCLIA [id number] [place] [address] [place] Calcium [Mass/Vol] 9.5 mg/dL Normal 8.5-10.2 [facility] Comment on above: Order Comment: Speci men Type: BLOOD SPECIMENOrdering Facility: [facility] Address: [address] [place] [address] Performed By: #### 2 4323-8, 3040-3, 09269-9, 72718-5, [id number] ####H[facility] LABORATORYCLIA [id number] [place] [address] [place] Chloride [Moles/Vol] 100 mmol/L Normal 98-107 [facility] Comment on above: Order Comment: Specjeffy men Type: BLOOD SPECIMENOrdering Facility: [facility] Address: [address] [place] [address] Performed By: #### 2 4323-8, 3040-3, 91159-3, 79275-1, [id number] ####H[facility] LABORATORYCLIA [id number] [place] [address] [place] CO2 [Moles/Vol] 28 mmol/L Normal 22-30 [facility] Comment on above: Order Comment: Speci men Type: BLOOD SPECIMENOrdering Facility: [facility] Address: [address] [place], [place] [address] Performed By: #### 2 4323-8, 3040-3, 88436-9, 50750-1, [id number] ####H[facility] LABORATORYCLIA [id number] [place] [id number] [place] Creatinine [Mass/Vol] 1.94 mg/dL High 0.58-0.96 [facility] Comment on above: Order Comment: Speci men Type: BLOOD SPECIMENOrdering Facility: [facility] Address: [address] [place], [place] [address] Performed By: #### 2 4323-8, 3040-3, 84740-1, 96164-7, [id number] ####H[facility] LABORATORYCLIA [id number] [place] [id number] [facility] Creatinine and Glomerular filtration rate.predicted panel (S/P/Bld) 26 mL/min/1.73m??? Low >=60 [facility] Comment on above: Order Comment: Spec men Type: BLOOD SPECIMENOrdering Facility: [facility] Address: [address] [place], [place] [address] Result Comment: Aaron mated Glomerular Filtration Rate [...] GFR. Performed By: #### 2 4323-8, 3040-3, 44651-9, 62238-6, [id number] ####KO LABORATORYCLIA [id number] [place] [address] [place] Glucose [Mass/Vol] 147 mg/dL High 74-99 [facility] Comment on above: Order Comment: Lenard jesus Type: BLOOD SPECIMENOrdering Facility: [facility] Address: [address] [place] [address] Result Comment: The [place] [employer] (ADA) provides guidance for cutoff [...] Standards of Medical Care in Diabetes 2016, [place] [employer]. Diabetes Care. 2016.39(Suppl 1). Performed By: #### 2 4323-8, 3040-3, 39642-8, 96804-6, [id number] ####KO LABORATORYCLIA [id number] [place] [address] [place] Potassium [Moles/Vol] 4.5 mmol/L Normal 3.7-5.1 [facility] Comment on above: Order Comment: Lenard jesus Type: BLOOD SPECIMENOrdering Facility: [facility] Address: [address] [place] [address] Performed By: #### 2 4323-8, 3040-3, 17662-8, 21392-7, [id number] ####[facility] LABORATORYCLIA [id number] [place] [address] [place] Protein [Mass/Vol] 7.5 g/dL Normal 6.3-8.0 [facility] Comment on above: Order Comment: Lenard jesus Type: BLOOD SPECIMENOrdering Facility: [facility] Address: [address] [place] [address] Performed By: #### 2 4323-8, 3040-3, 88518-4, 52821-4, [id number] ####KO LABORATORYCLIA [id number] [address] [place] [facility] Sodium [Moles/Vol] 139 mmol/L Normal 136-144 [facility] Comment on above: Order Comment: Speci men Type: BLOOD SPECIMENOrdering Facility: [facility] Address: [address] [place], [place] [address] Performed By: #### 2 4323-8, 3040-3, 78922-9, 63202-8, [id number] ####KO LABORATORYCLIA [id number] [address] Urea nitrogen [Mass/Vol] 50 mg/dL High 7-21 [facility] Comment on above: Order Comment: Speci men Type: BLOOD SPECIMENOrdering Facility: [facility] Address: [address] [place] [address] Performed By: #### 2 4323-8, 3040-3, 18205-1, 82447-2, [id number] ####[facility] LABORATORYCLIA [id number] [address] D dimer FEU PPP-mCncon 11-14 Fibrin D-dimer FEU (PPP) [Mass/Vol] 620 ng/mL FEU High <500 [facility] Comment on above: Order Comment: Speci men Type: BLOOD SPECIMENOrdering Facility: [facility] Address: [address] [place] [address] Performed By: #### 4 8065-7, 21833-5, 78498-0 ####[facility] LABORATORYCLIA [id number] [place] [id number] [facility] ED NOTEon 11-15-2023 ED NOTE HNO ID: [id number] Author: CHALO CHAIDEZ, CARO Service: ? Author Type: Registered Nurse Type: ED Notes Filed: 11/15/2023 22:21 Note Text: Verbal phone report was provided to Josette on . The pt remains stable for transport to the floor for admission. NAD noted at this time. Belongings list was completed. Medic to transport. [facility] ED NOTE HNO ID: [id number] Author: CHALO CHAIDEZ RN Service: ? Author Type: Registered Nurse Type: ED Notes Filed: 11/15/2023 22:07 Note Text: Heads up called to -[place] charge nurse (Spoke with Singh) [facility] ED PROV NOTEon 11-15-2023 ED PROV NOTE HNO ID: [id number] Author: ISIAH CHOI MD Service: Emergency Medicine [...] on chronic systolic CHF (congestive heart failure) ([facility]) 05/03/2020 Aspiration pneumonia ([facility]) 05/30/2020 Chest pain 05/03/2020 Chest pressure 01/23/2013 Chronic diastolic congestive heart failure ([facility]) 02/14/2021 Clostridium difficile diarrhea 09/28/2020 Complete uterovaginal prolapse Cystocele, midline Essential hypertension 06/14/2020 Homozygous Factor V Leiden mutation ([facility]) 05/03/2020 Hypothyroidism IBS (irritable [...] rub. No gallop. (more content not included)... [facility] EKGon 11-15-2023 Electrocardiogram Ventricular Rate : 5 9 BPM Atrial Rate : 59 BPM P-R Interval : 114 ms QRS Duration : 122 ms Q-T Interval : 490 ms QTC Calculation(Bazett) : 485 ms Calculated P [place] : 27 degrees Calculated R [place] : -60 degrees Calculated T [place] : 78 degrees Atrial-sensed ventricular-paced rhythm ABNORMAL ECG When compared with selected ECG of 10-Jul-2023 07:12, ELECTRONIC VENTRICULAR PACEMAKER HAS REPLACED SINUS RHYTHM no STEMI Confirmed by MD COHI EDWARD.S ([id number]) on 11/15/2023 7:34:54 PM NAME : SANDRA SCHMITZ PID : [id number] : 1945 Gender : Female Race : ORD : Procedure Date : Nov 15 2023 19:27:04 Edit Date : Nov 15 2023 19:34:59 Diagnosis: Atrial-sensed ventricular-paced rhythm ABNORMAL ECG When compared with selected ECG of 10-Jul-2023 07:12, ELECTRONIC VENTRICULAR PACEMAKER HAS REPLACED SINUS RHYTHM no STEMI Confirmed by MD CHOI EDWARD.S ([id number]) on 11/15/2023 7:34:54 PM Test Reason : Location : 1 : ER ED Overread By : MD CHOI EDWARD.S Edited By : MD CHOI EDWARD.Eileen Referred By : , Acquired by : WENCESLAO RN, [facility] FLUABV+SARS-CoV-2+RSV Pnl Re sp PRECIOUS+probeon 11-15-2023 FLUABV+SARS-CoV-2+RSV Pnl Resp PRECIOUS+probe COVID 19 RESULT: Not detected The method used is RT-PCR or an equivalent NAAT method. Reference Range(the expected result in uninfected individuals): Not detected INFLUENZA A PCR: Not detected INFLUENZA B PCR: Not detected RSV PCR: Not detected Normal [facility] Comment on above: Performed By: #### 9 5941-1 ####[facility] LABORATORYCLIA [id number] [place] [address] [place] Fibrin D-dimer FEU (PPP) [Ma ss/Vol]on 11-15-2023 D DIMER AGE-RELATED CUTOFF 770 ng/mL FEU Normal [facility] Comment on above: Order Comment: Lenard jesus Type: BLOOD SPECIMENOrdering Facility: [facility] Address: [address] [place] [address] Performed By: #### 4 8065-7, 22469-0, 81154-6 ####[facility] LABORATORYCLIA [id number] [address] [place] Gas and Carbon monoxide pane l (BldV)on 11-15-2023 Base excess Calc (BldV) [Moles/Vol] 2 mmol/L Normal 0-2 [facility] Comment on above: Order Comment: Lenard jesus Type: VENOUS BLOOD SPECIMENOrdering Facility: [facility] Address: [address] [place] [address] Performed By: #### 2 4344-4 ####[facility] RESPIRATORYCLIA [id number] [facility]IR[facility] [id number] [place] [id number] Carboxyhemoglobin (BldV) [Mass fraction] <1.0 Normal 0.0-2.0 [facility] Comment on above: Order Comment: Lenard jesus Type: VENOUS BLOOD SPECIMENOrdering Facility: [facility] Address: [address] [place] [address] Result Comment: Carb oxyhemoglobin Reference Range for Smokers: 2.0-8.0% Performed By: #### 2 4344-4 ####[facility] RESPIRATORYCLIA [id number] [facility]OS[facility]IR[facility] [id number] [address] [address] CO2 (BldV) [Partial pressure] 46 mm[Hg] Normal 42-55 [facility] Comment on above: Order Comment: Speci men Type: VENOUS BLOOD SPECIMENOrdering Facility: [facility] Address: [address] [place] [address] Performed By: #### 2 4344-4 ####KO RESPIRATORYCLIA [id number] [facility] [id number] [address] [address] CO2 adjusted to patient's actual temperature (BldV) [Partial pressure] Normal [facility] Comment on above: Order Comment: Speci men Type: VENOUS BLOOD SPECIMENOrdering Facility: [facility] Address: [address] [place] [address] Performed By: #### 2 4344-4 ####[facility]ORY[facility] [id number] [facility] RES[facility]IR[facility] [id number] [address] [address] HCO3 (Bld) [Moles/Vol] 27 mmol/L Normal 24-28 [facility] Comment on above: Order Comment: Speci men Type: VENOUS BLOOD SPECIMENOrdering Facility: [facility] Address: [address] [place] [address] Performed By: #### 2 4344-4 ####[facility]ORY[facility] [id number] [facility] [id number] [address] [address] Hemoglobin (Bld) [Mass/Vol] 13.0 g/dL Normal 11.5-15.5 [facility] Comment on above: Order Comment: Speci men Type: VENOUS BLOOD SPECIMENOrdering Facility: [facility] Address: [address] [place] [address] Performed By: #### 2 4344-4 ####[facility]ORY[facility] [id number] [facility]IR[facility] [id number] [address] [address] Lactate [Moles/Vol] 1.6 mmol/L Normal 0.5-2.2 [facility] Comment on above: Order Comment: Speci men Type: VENOUS BLOOD SPECIMENOrdering Facility: [facility] Address: [address] [place] [address] Performed By: #### 2 4344-4 ####KO RESPIRATORYCLIA [id number] [facility]IR[facility] [id number] [address] [address] Methemoglobin (Bld) [Mass fraction] % Normal 0.0-1.5 [facility] Comment on above: Order Comment: Speci men Type: VENOUS BLOOD SPECIMENOrdering Facility: [facility] Address: [address] [place] [id number] Performed By: #### 2 4344-4 ####KO RESPIRATORYCLIA [id number] [id number] [address] [address] O2 THERAPY RA=Room Air [facility] Comment on above: Order Comment: Speci men Type: VENOUS BLOOD SPECIMENOrdering Facility: [facility] Address: [address] [place] [address] Performed By: #### 2 4344-4 ####[facility]ORYIA [id number] [facility] [id number] [address] [address] Oxygen (BldV) [Partial pressure] 42 mm[Hg] Normal 35-45 [facility] Comment on above: Order Comment: Speci men Type: VENOUS BLOOD SPECIMENOrdering Facility: [facility] Address: [address] [id number] Performed By: #### 2 4344-4 ####KO RESPIRATORYIA [id number] [facility]AT[facility] [id number] [address] [address] Oxygen adjusted to patient's actual temperature (BldV) [Partial pressure] Normal [facility] Comment on above: Order Comment: Speci men Type: VENOUS BLOOD SPECIMENOrdering Facility: [facility] Address: [address] [place] [address] Performed By: #### 2 4344-4 ####KO RESPIRATORYIA [id number] [facility] RESPIRATORY [id number] [address] [address] Oxygen saturation in Venous blood 74 % Normal 60-85 [facility] Comment on above: Order Comment: Speci men Type: VENOUS BLOOD SPECIMENOrdering Facility: [facility] Address: [address] [place] [address] Performed By: #### 2 4344-4 ####KO RESPIRATORYCLIA [id number] [facility] RESPIRATORY [id number] [address] [address] Oxyhemoglobin (BldV) [Mass fraction] 73 % Normal [facility] Comment on above: Order Comment: Speci men Type: VENOUS BLOOD SPECIMENOrdering Facility: [facility] Address: [address] [place] [address] Performed By: #### 2 4344-4 ####KO RESPIRATORYCLIA [id number] [facility] RESPIRATORY [id number] [address] [address] pH (BldV) 7.38 [pH] Normal 7.32-7.42 [facility] Comment on above: Order Comment: Speci men Type: VENOUS BLOOD SPECIMENOrdering Facility: [facility] Address: [address] [place] [address] Performed By: #### 2 4344-4 ####KO RESPIRATORYIA [id number] [facility] RESPIRATORY [id number] [address] [address] pH adjusted to patient's actual temperature (BldV) Normal [facility] Comment on above: Order Comment: Speci men Type: VENOUS BLOOD SPECIMENOrdering Facility: [facility] Address: [address] [place] [address] Performed By: #### 2 4344-4 ####KO RESPIRATORYCLIA [id number] [facility] RESPIRATORY [id number] [address] [address] Potassium [Moles/Vol] 3.8 mmol/L Normal 3.5-5.0 [facility] Comment on above: Order Comment: Speci men Type: VENOUS BLOOD SPECIMENOrdering Facility: [facility] Address: [address] [place] [address] Performed By: #### 2 4344-4 ####KO RESPIRATORYCLIA [id number] [facility] RESPIRATORY [id number] [address] [place] [address] HIGH SENSITIVITY TROPONIN T (INITIAL)on 11-15-2023 Troponin T.cardiac High sensitivity method [Mass/Vol] 31 ng/L High <12 [facility] Comment on above: Order Comment: Speci men Type: BLOOD SPECIMENOrdering Facility: [facility] Address: [address] [place] [address] Performed By: #### 2 4323-8, 3040-3, 73412-3, 81198-2, [id number] ####[facility] LABORATORYCLIA [id number] [address] HIGH SENSITIVITY TROPONIN T (SECOND)on 11-15-2023 Troponin T.cardiac High sensitivity method [Mass/Vol] 25 ng/L High <[address] [place] [address] Comment on above: Order Comment: Speci men Type: BLOOD SPECIMENOrdering Facility: [facility] Address: [address] [place] [address] Performed By: #### 3 3959-8, [id number] ####[facility] LABORATORYCLIA [id number] [address] HIGH SENSITIVITY TROPONIN T (THIRD) 3 HRS AFTER INITIALon 11-15-2023 Troponin T.cardiac High sensitivity method [Mass/Vol] 23 ng/L High <[address] [place] [address] Comment on above: Order Comment: Speci men Type: BLOOD SPECIMENOrdering Facility: [facility] Address: [address] [place] [address] Performed By: #### 3 016-3, [id number] ####[facility] LABORATORYCLIA [id number] [place] [id number] [place] HISTORY PHYSICALon HISTORY PHYSICAL HNO ID: [id number] Author: ADDI BRICE DO Service: Hospital Medicine Author Type: Physician Type: H&P Filed: 11/16/2023 00:14 Note Text: DEPARTMENT OF HOSPITAL MEDICINE HISTORY AND PHYSICAL EXAM SERVICE DATE: 11/16/2023 SERVICE TIME: 12:14 AM Primary Care Physician: Mandeep Houser DO NIGHT COVERAGE: Please page [facility] [place] [phone] for any issues or concerns Subjective CHIEF COMPLAINT: Syncope (Having abd cramps was sitting in the bathroom when started breaking out in a sweat and blacking out. 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 HIGH SENSITIVITY TROPONIN T (SECOND) [...] URINALYSIS WI (more content not included)... Normal [facility] Lipase SerPl-cCncon 11-15-19 24 Lipase [Catalytic activity/Vol] 42 U/L Normal 16-61 [facility] Comment on above: Order Comment: Lenard jesus Type: BLOOD SPECIMENOrdering Facility: [facility] Address: [address] [place] [address] Performed By: #### 2 4323-8, 3040-3, 25101-5, 09572-6, [id number] ####[facility] LABORATORYCLIA [id number] [address] [place] Magnesium [facility]-ncon 11-14 Magnesium [Mass/Vol] 2.2 mg/dL Normal 1.7-2.3 [facility] Comment on above: Order Comment: Lenard jesus Type: BLOOD SPECIMENOrdering Facility: [facility] Address: [address] [place] [address] Performed By: #### 2 4323-8, 3040-3, 39506-2, 74300-1, [id number] ####[facility] LABORATORYCLIA [id number] [address] [place] NT-proBNP [facility]14 Natriuretic peptide.B prohormone N-Terminal [Mass/Vol] 1221 pg/mL High <450 [facility] Comment on above: Order Comment: Lenard jesus Type: BLOOD SPECIMENOrdering Facility: [facility] Address: [address] [place] [address] Performed By: #### 2 4323-8, 3040-3, 65010-2, 00983-5, [id number] ####[facility] LABORATORYCLIA [id number] [address] [place] PT panel Coag (PPP)on 2023 INR Coag (PPP) [Relative time] 0.9 {INR} Normal 0.9-1.3 [facility] Comment on above: Order Comment: Lenard jesus Type: BLOOD SPECIMENOrdering Facility: [facility] Address: [address] [place] [address] Result Comment: Sarah min K Antagonist (VKA) Therapeutic Range: INR 2 to 3 (Target INR of 2.5) Note: For patients treated with VKA drugs, such as warfarin, the [place] [employer] 2012 Guideline recommends [...] Chest 2012, 141:7S-47S Becca RA, et al. [facility] 2017, 70: 252-289 Performed By: #### 4 8065-7, 56032-9, 87100-2 ####[facility] LABORATORYCLIA [id number] [place] [address] [place] PT Coag (PPP) [Time] 10.2 s Normal 9.7-13.0 [facility] Comment on above: Order Comment: Lenard [facility] Type: BLOOD SPECIMENOrdering Facility: [facility] Address: [address] [place] [address] Performed By: #### 4 8065-7, 51648-1, 15248-8 ####[facility] LABORATORYCLIA [id number] [place] [id number] [place] Procalcitonin SerPl-mCncon 0 11-15-2023 Procalcitonin [Mass/Vol] 0.07 ng/mL Normal <0.09 [facility] Comment on above: Order Comment: Lenard jesus Type: BLOOD SPECIMENOrdering Facility: [facility] Address: [address] [place] [address] Result Comment: For a guided interpretation of test results, please visit the Change in Procalcitonin Calculator, [email or web address]. Performed By: #### 3 3959-8, [id number] ####KO LABORATORYCLIA [id number] [address] TSH SerPl-aCncon 11-15-2023 TSH Qn 1.470 m[IU]/L Normal 0.270-4.200 [facility] Comment on above: Order Comment: Speci men Type: BLOOD SPECIMENOrdering Facility: [facility] Address: [address] [place] [address] Performed By: #### 3 016-3, [id number] ####KO LABORATORYCLIA [id number] [address] Urinalysis complete panel (U )on 11-15-2023 Bilirubin Ql (U) Negative Normal Negative [facility] Comment on above: Order Comment: Speci men Type: URINE SPECIMENOrdering Facility: [facility] Address: [address] [place] [address] Performed By: #### 2 4356-8 ####KO LABORATORYCLIA [id number] [address] Clarity (Unsp spec) Clear Normal Clear [facility] Comment on above: Order Comment: Speci men Type: URINE SPECIMENOrdering Facility: [facility] Address: [address] [place] [address] Performed By: #### 2 4356-8 ####KO LABORATORYCLIA [id number] [address] Color (U) Yellow Normal Yellow [facility] Comment on above: Order Comment: Speci men Type: URINE SPECIMENOrdering Facility: [facility] Address: [address] [place] [address] Performed By: #### 2 4356-8 ####KO LABORATORYCLIA [id number] [address] Epithelial cells LM.HPF (Urine sed) [#/Area] Few Normal [facility] Comment on above: Order Comment: Speci men Type: URINE SPECIMENOrdering Facility: [facility] Address: [address] [place] [address] Performed By: #### 2 4356-8 ####KO LABORATORYCLIA [id number] [address] Glucose Test strip (U) [Mass/Vol] Negative Normal Negative [facility] Comment on above: Order Comment: Speci men Type: URINE SPECIMENOrdering Facility: [facility] Address: [address] [place] [address] Performed By: #### 2 4356-8 ####KO LABORATORYCLIA [id number] [place] [address] [place] Hemoglobin Ql (U) Negative Normal Negative [facility] Comment on above: Order Comment: Speci men Type: URINE SPECIMENOrdering Facility: [facility] Address: [address] [place] [address] Performed By: #### 2 4356-8 ####KO LABORATORYCLIA [id number] [address] [place] Ketones Ql (U) Negative Normal Negative [facility] Comment on above: Order Comment: Speci men Type: URINE SPECIMENOrdering Facility: [facility] Address: [address] [place] [address] Performed By: #### 2 4356-8 ####KO LABORATORYCLIA [id number] [address] Leukocyte esterase Test strip Ql (U) Negative Normal Negative [facility] Comment on above: Order Comment: Speci men Type: URINE SPECIMENOrdering Facility: [facility] Address: [address] [place] [address] Performed By: #### 2 4356-8 ####KO LABORATORYCLIA [id number] [address] [place] Nitrite Ql (U) Negative Normal Negative [facility] Comment on above: Order Comment: Speci men Type: URINE SPECIMENOrdering Facility: [facility] Address: [address] [place] [address] Performed By: #### 2 4356-8 ####KO LABORATORYCLIA [id number] [address] pH (U) 6.0 [pH] Normal 5.0-8.0 [facility] Comment on above: Order Comment: Speci men Type: URINE SPECIMENOrdering Facility: [facility] Address: [address] [place] [address] Performed By: #### 2 4356-8 ####KO LABORATORYCLIA [id number] [address] [place] Protein (U) [Mass/Vol] Negative Normal Negative [facility] Comment on above: Order Comment: Speci men Type: URINE SPECIMENOrdering Facility: [facility] Address: [address] [place] [address] Performed By: #### 2 4356-8 ####[facility] LABORATORYCLIA [id number] [address] [place] RBC LM.HPF (Urine sed) [#/Area] 0-3 /HPF Normal 0-3 /HPF [facility] Comment on above: Order Comment: Speci men Type: URINE SPECIMENOrdering Facility: [facility] Address: [address] [place] [address] Performed By: #### 2 4356-8 ####[facility] LABORATORYCLIA [id number] [address] Specific gravity (U) [Rel density] 1.020 Normal 1.005-1.030 [facility] Comment on above: Order Comment: Speci men Type: URINE SPECIMENOrdering Facility: [facility] Address: [address] [place] [address] Performed By: #### 2 4356-8 ####KO LABORATORYCLIA [id number] [address] Urobilinogen Ql (U) 0.2 EU/dL Normal 0.2-1.0 EU/dL [facility] Comment on above: Order Comment: Speci men Type: URINE SPECIMENOrdering Facility: [facility] Address: [address] [place] [address] Performed By: #### 2 4356-8 ####KO LABORATORYCLIA [id number] [place] [address] [place] WBC LM.HPF (Urine sed) [#/Area] 0-5 /HPF Normal 0-5 /HPF [facility] Comment on above: Order Comment: Speci men Type: URINE SPECIMENOrdering Facility: [facility] Address: [address] [place] [address] Performed By: #### 2 4356-8 ####[facility] LABORATORYCLIA [id number] [place] [address] [place] XR CHEST 1V [...] osseous abnormality. IMPRESSION: No acute cardiopulmonary disease. Night Clerk: PSCMykel Transcribe Date/Time: Nov 15 2023 8:27P Dictated by : OLIVERIO NOLASCO MD This examination was interpreted and the report reviewed and electronically signed by: OLIVERIO NOLASCO MD on Nov 15 2023 8:31PM EST [id number] Normal [facility] aPTT PPPon 11-15-2023 aPTT Coag (PPP) [Time] 22.7 s Low 23.0-32.4 [facility] Comment on above: Order Comment: Speci men Type: BLOOD SPECIMENOrdering Facility: [facility] Address: [address] [place] [address] Performed By: #### 4 8065-7, 98425-9, 64584-1 ####[facility] LABORATORYCLIA [id number] [place] [address] [place] [address] BRAIN WO IVCONon 11-01-[address] BRAIN WO IVCON * * *Final Report* * * DATE OF EXAM: Nov 01 2023 3:05PM [facility] 0504 - CT BRAIN WO IVCON [...] should be made on a neurological basis. Night Clerk: PSCB Transcribe Date/Time: Nov 01 2023 3:06P Dictated by : ERNESTO KLEIN MD This examination was interpreted and the report reviewed and electronically signed by: ERNESTO KLEIN MD on Nov 01 2023 3:11PM EST [id number] Normal [facility] CT Head WO contraston 2023 IMPRESSION: No CT evidence of acute intracranial abnormality/hemorrhage Mild degree supratentorial chronic microvascular ischemic changes. Axial image 10, focal area decreased attenuation right insular cortex most consistent with chronic microvascular ischemic changes. Decision to perform follow-up and/or further imaging should be made on a neurological basis. Night Clerk: KEYANA Transcribe Date/Time: Nov 01 2023 3:06P Dictated by : ERNESTO KLEIN MD This examination was interpreted and the report reviewed and electronically signed by: ERNESTO KLEIN MD on Nov 01 2023 3:11PM EST [facility] * * *Final Report* * * DATE OF EXAM: Nov 01 2023 3:05PM [facility] 0504 - CT BRAIN WO IVCON [...] base and imaged soft tissues are unremarkable. [facility] * * *Final Report* * * DATE OF EXAM: Nov 01 2023 3:05PM [facility] 0504 - CT BRAIN WO IVCON [...] should be made on a neurological basis. Night Clerk: KEYANA Transcribe Date/Time: Nov 01 2023 3:06P Dictated by : ERNESTO KLEIN MD This examination was interpreted and the report reviewed and electronically signed by: ERNESTO KLEIN MD on Nov 01 2023 3:11PM EST [facility] Radiology Study observation (narrative) [facility] CT Head WO contrastOrdered B y: [facility] Provider on 11-01-2023 [facility] CBC W Auto Differential pane l (Bld)on 10-31-2023 Basophils (Bld) [#/Vol] 0.13 10*3/uL High [facility] Basophils/100 WBC (Bld) 1.2 % [facility] Differential cell count method Nom (Bld) Auto [facility] Eosinophils (Bld) [#/Vol] 0.34 10*3/uL NINF [facility] Eosinophils/100 WBC (Bld) 3.1 % [facility] Erythrocyte distribution width (RBC) [Ratio] 13.5 % 11.5 - 15.0 % [facility] Hematocrit (Bld) [Volume fraction] 41.9 % 36.0 - 46.0 % [facility] Hemoglobin (Bld) [Mass/Vol] 13.0 g/dL 11.5 - 15.5 g/dL [facility] Immature granulocytes (Bld) [#/Vol] 0.07 10*3/uL [facility] Immature granulocytes/100 WBC (Bld) 0.6 % [facility] Interpretation and review of laboratory results Abnormal [facility] Lymphocytes (Bld) [#/Vol] 4.05 10*3/uL High [facility] Lymphocytes/100 WBC (Bld) 37.4 % [facility] MCH (RBC) [Entitic mass] 28.8 pg 26.0 - 34.0 pg [facility] MCHC (RBC) [Mass/Vol] 31.0 g/dL 30.5 - 36.0 g/dL [facility] MCV (RBC) [Entitic vol] 92.7 fL 80.0 - 100.0 fL [facility] Monocytes (Bld) [#/Vol] 0.99 10*3/uL High [facility] Monocytes/100 WBC (Bld) 9.1 % [facility] Neutrophils (Bld) [#/Vol] 5.24 10*3/uL [facility] Neutrophils/100 WBC (Bld) 48.6 % [facility] Nucleated RBC (Bld) [#/Vol] [facility] Nucleated RBC/100 WBC (Bld) [Ratio] 0.0 % /100 WBC [facility] Platelet mean volume (Bld) [Entitic vol] 10.4 fL 9.0 - 12.7 fL [facility] Platelets (Bld) [#/Vol] 326 10*3/uL [facility] RBC (Bld) [#/Vol] 4.52 10*6/uL 3.90 - 5.2 0 m/uL [facility] WBC (Bld) [#/Vol] 10.82 10*3/uL [facility] CBC W Auto Differential pane l (Bld)on 10-15-2023 Basophils (Bld) [#/Vol] 0.11 10*3/uL High NINF [facility] Basophils/100 WBC (Bld) 1.1 % [facility] Differential cell count method Nom (Bld) Auto [facility] Eosinophils (Bld) [#/Vol] 0.30 10*3/uL [facility] Eosinophils/100 WBC (Bld) 3.0 % [facility] Erythrocyte distribution width (RBC) [Ratio] 13.4 % 11.5 - 15.0 % [facility] Hematocrit (Bld) [Volume fraction] 40.6 % 36.0 - 46.0 % [facility] Hemoglobin (Bld) [Mass/Vol] 12.7 g/dL 11.5 - 15.5 g/dL [facility] Immature granulocytes (Bld) [#/Vol] 0.07 10*3/uL [facility] Immature granulocytes/100 WBC (Bld) 0.7 % [facility] Interpretation and review of laboratory results Abnormal [facility] Lymphocytes (Bld) [#/Vol] 3.14 10*3/uL [facility] Lymphocytes/100 WBC (Bld) 31.7 % [facility] MCH (RBC) [Entitic mass] 29.4 pg 26.0 - 34.0 pg [facility] MCHC (RBC) [Mass/Vol] 31.3 g/dL 30.5 - 36.0 g/dL [facility] MCV (RBC) [Entitic vol] 94.0 fL 80.0 - 100.0 fL [facility] Monocytes (Bld) [#/Vol] 0.72 10*3/uL [facility] Monocytes/100 WBC (Bld) 7.3 % [facility] Neutrophils (Bld) [#/Vol] 5.55 10*3/uL [facility] Neutrophils/100 WBC (Bld) 56.2 % [facility] Nucleated RBC (Bld) [#/Vol] [facility] Nucleated RBC/100 WBC (Bld) [Ratio] 0.0 % /100 WBC [facility] Platelet mean volume (Bld) [Entitic vol] 10.4 fL 9.0 - 12.7 fL [facility] Platelets (Bld) [#/Vol] 353 10*3/uL [facility] RBC (Bld) [#/Vol] 4.32 10*6/uL 3.90 - 5.2 0 m/uL [facility] WBC (Bld) [#/Vol] 9.89 10*3/uL [facility] ICD REMOTE CHECKon 4 AV Delay Adaptive Paced Minimum (ms) 130 ms [facility] AV Delay Adaptive Sensed Minimum (ms) 80 ms [facility] AV Delay Adaptive Status ENABLED [facility] Battery Voltage 3.09 V [facility] Luis LV Pacing Amplitude (volts) 1.0 V [facility] Luis LV Pacing Polarity BI [facility] Luis LV Pacing Pulse Width (ms) 0.4 ms [facility] Luis RA Pacing Amplitude (volts) 3.5 V [facility] Luis RA Pacing Polarity BI [facility] Luis RA Pacing Pulse Width (ms) 0.4 ms [facility] Luis RA Sensing Amplitude (mvolts) 0.3 mV [facility] Luis RA Sensing Blanking Period (ms) 150 ms [facility] Luis RA Sensing Polarity BI [facility] Luis RA Sensing Refractory Period (ms) Auto [facility] Luis RV Pacing Amplitude (volts) 3.5 V [facility] Luis RV Pacing Polarity BI [facility] Luis RV Pacing Pulse Width (ms) 0.4 ms [facility] Luis RV Sensing Amplitude (mvolts) 0.3 mV [facility] Luis RV Sensing Blanking Period (ms) 230 ms [facility] Luis RV Sensing Polarity BI [facility] Detection Configuration (Vent) 1 - Zone [facility] ICD AFIB DetectionStatus ENABLED [facility] ICD ATAF DetectionInterval ms 350 ms [facility] ICD ATAF DetectionStatus ENABLED [facility] ICD FastVT DetectionStatus DISABLED [facility] ICD-ADLRATE_BPM 95 {beats}/min [facility] ICD-AMS EPISODES 171 {beats}/min [facility] ICD-ATP Episodes (Vent) 0 [facility] ICD-ATRIALFIBRILLATION 0 Cl [facility] ICD-Device Mfg MDT [facility] ICD-LEADIMPEDANCEATRIA L 589 ohm [facility] ICD-Percent Pacing (Atrial) 0.07 % [facility] ICD-Percent Pacing (Vent) 6.67 % [facility] ICD-PMT Intervention Enabled [facility] ICD-PVC Intervention Enabled [facility] ICD-Rate Modulation Acceleration Reaction 30 s [facility] ICD-Rate Modulation Deceleration Exercise [facility] ICD-Rate Modulation [place] 3 [facility] ICD-Rate Modulation Threshold Low [facility] ICD-Shocks Aborted (Vent) 0 [facility] LCS-[id number] 0 [facility] ICD-SHOCKSABORTED 0 [facility] ICD-SHOCKSDELIVEREDVEN TRICULAR 0 [facility] ICD-Ventricular Fibrillation 0 [facility] ICD-VVDELAY_MS 0 ms [facility] Lead Impedance (LV) 437 ohm [facility] Lead Impedance (RV) 380 ohm [facility] Lead Impedance High Voltage 73 ohm [facility] Lead1 Mfg MDT [facility] Lead2 Mfg MDT [facility] Lead3 Mfg MDT [facility] Location LV [facility] Location RA [facility] Location RV [facility] Lower Rate (bpm) 45 {beats}/min [facility] LV PACING % 97.85 % [facility] Max Sensor Rate (bpm) 120 {beats}/min [facility] MDT_PROG_TACHY_ZONE_DE TECTIONS_STATUS ENABLED [facility] Model [id number] [place] XT HF Quad ASSISTANT CENTER MANAGER-D MRI [facility] Model 4798 Attain Stabilit y Quad [facility] Model 5076 CapSureFix Novus [facility] Model 6935M Sprint Quattro Secure S [facility] Pacing Mode DDD [facility] Serial Number [id number] [facility] Serial Number [id number] [facility] Serial Number [id number] [facility] Serial Number [id number] [facility] Test Charge Energy 40.0 J [facility] Test Charge Time 0 s [facility] Therapy Status (Vent) Enabled [facility] Thresh LV Capture Amplitude (volts) 0.375 V [facility] Thresh LV Capture Duration (ms) 0.4 ms [facility] Thresh RA Capture Amplitude (volts) 0.375 V [facility] Thresh RA Capture Duration (ms) 0.4 ms [facility] Thresh RA Sensing Amplitude (mvolts) 5.0 mV [facility] Thresh RV Capture Amplitude (VOLTS) 0.625 V [facility] Thresh RV Capture Duration (MS) 0.4 ms [facility] Thresh RV Sensing Amplitude (MVOLTS) 24.5 mV [facility] Tracking Rate (bpm) 130 {beats}/min [facility] VF Zone Detection Interval 320 ms [facility] VF Zone Therapy Configuration 1 ATP(s) + 6 Shock(s) [facility] 09/28/2023 Formattin g of this [...] pacing <0.1%. total V pacing 97.9%. Adaptive ASSISTANT CENTER MANAGER shows BiV pacing 6.8%, LV only pacing 93.2%. FOLLOW UP: Continue 3 month remote transmissions and yearly in-clinic interrogations. Amy Louis RN NOTE TO PROVIDERS: CARD Flowsheets contain detailed device programming and testing data. Paceart/Interrogation PDF can be found under CARDIAC DATA AND REPORT, Scanned Documents section. [facility] No Panel Informationon 09-27 BLANK _ [facility] ICD-ATRIALTACHYCARDIA 0 [facility] ICD-Fast Ventricular Tachycardia 0 [facility] Implant Date 2023 [facility] 09-25-2023 TIMN Telephone (MEPRAD) ----- SANDRA SCHMITZ ([id number]) 1945 [place] [employer] Date Time Provider Department 09/25/23 THUY AGUIRRE During your visit today, we recorded the following information about you: Thuy Aguirre, MELI.GEOPHYSICS SCIENTIST 09/25/2023 12:12 PM Signed Called and spoke [...] failure Dr. Wells 10/01 virtually. Thuy Aguirre APRN.GEOPHYSICS SCIENTIST Allergies As of Date: 09/25/2023 Noted Allergy [...] spine, cervical (more content not included)... Normal [facility] XR Foot - left AP and Latera l and obliqueon 09-13-2023 IMPRESSION: No acute osseous abnormality Night Clerk: KEYANA Transcribe Date/Time: Sep 13 2023 11:53A Dictated by : KIRA MALONE MD This examination was interpreted and the report reviewed and electronically signed by: KIRA MALONE MD on Sep 13 2023 11:55AM [facility] DIVISION OF RADIOLOGY * * [...] erosions. IMPRESSION IMPRESSION: No acute osseous abnormality Night Clerk: PSCB Transcribe Date/Time: Sep 13 2023 11:53A Dictated by : KIRA MALONE MD This examination was interpreted and the report reviewed and electronically signed by: KIRA MALONE MD on Sep 13 2023 11:55AM EST [facility] Radiology Study observation (narrative) [facility] XR Foot - left AP and Latera l and obliqueOrdered By: Ccf Provider on 09-13-2023 [facility] CR - History AND Physicalon 08-29-2023 CR - History & Physical [facility] Card[facility] Re[facility] [address] [place] [address] CR - History Physical MR#: [id number] Acct: [id number] Name: SANDRA SCHMITZ Rep #: [id number] : 1945 78 From: Duran KEYS, RVT [...] Negative Advanced Directives Advanced Directives Power of Rock Breaker: Yes Living Will: Yes Advance Directives Information [...] Date Josh Britton MD CC: Signed Normal [facility] UA DIP, URINE (POC)on 2023 BILIRUBIN UA (POCT) Negative Negative [facility] CLARITY UA (POCT) Clear [facility] COLOR UA ([facility]) Yellow [facility] GLUCOSE UA (POCT) Negative Negative mg/dL [facility] Hemoglobin Ql (U) Negative Negative [facility] KETONE UA (POCT) Negative Negative mg/dL [facility] LEUKOCYTES UA (POCT) Negative Negative [facility] NITRITE UA (POCT) Negative Negative [facility] PH UA (POCT) 6.5 4.5 - 8.0 [facility] Protein Ql (U) Negative Negative mg/dL [facility] SPECIFIC GRAVITY UA (POCT) 1.010 1.005 - 1.030 [facility] UROBILINOGEN UA (POCT) 0.2 E.U./dL Jeanette l E.U./dL [facility] ICD CLINIC CHECKon 4 AV Delay Adaptive Paced Minimum (ms) 100 ms [facility] AV Delay Adaptive Sensed Minimum (ms) 80 ms [facility] AV Delay Adaptive Status ENABLED [facility] Battery Voltage 3.11 V [facility] Luis LV Pacing Amplitude (volts) 2.5 V [facility] Luis LV Pacing Polarity BI [facility] Luis LV Pacing Pulse Width (ms) 0.4 ms [facility] Luis RA Pacing Amplitude (volts) 3.5 V [facility] Luis RA Pacing Polarity BI [facility] Luis RA Pacing Pulse Width (ms) 0.4 ms [facility] Luis RA Sensing Amplitude (mvolts) 0.3 mV [facility] Luis RA Sensing Blanking Period (ms) 150 ms [facility] Luis RA Sensing Polarity BI [facility] Luis RA Sensing Refractory Period (ms) Auto [facility] Luis RV Pacing Amplitude (volts) 3.5 V [facility] Luis RV Pacing Polarity BI [facility] Luis RV Pacing Pulse Width (ms) 0.4 ms [facility] Luis RV Sensing Amplitude (mvolts) 0.3 mV [facility] Luis RV Sensing Blanking Period (ms) 230 ms [facility] Luis RV Sensing Polarity BI [facility] Detection Configuration (Vent) 1 - Zone [facility] ICD AFIB DetectionStatus ENABLED [facility] ICD ATAF DetectionInterval ms 350 ms [facility] ICD ATAF DetectionStatus ENABLED [facility] ICD FastVT DetectionStatus DISABLED [facility] ICD-ADLRATE_BPM 95 {beats}/min [facility] ICD-AMS EPISODES 171 {beats}/min [facility] ICD-ATP Episodes (Vent) 0 [facility] ICD-ATRIALFIBRILLATION 0 Cl [facility] ICD-Device Mfg MDT [facility] ICD-LEADIMPEDANCEATRIA L 551 ohm [facility] ICD-Percent Pacing (Atrial) 0.09 % [facility] ICD-Percent Pacing (Vent) 4.41 % [facility] ICD-PMT Intervention Enabled [facility] ICD-PVC Intervention Enabled [facility] ICD-Rate Modulation Acceleration Reaction 30 s [facility] ICD-Rate Modulation Deceleration Exercise [facility] ICD-Rate Modulation [place] 3 [facility] ICD-Rate Modulation Threshold Low [facility] ICD-Rhythm Normal Sinus Rhythm [facility] ICD-Shocks Aborted (Vent) 0 [facility] SAM-OKHEUL-IDPALYXHT 0 [facility] ICD-SHOCKSABORTED 0 [facility] ICD-SHOCKSDELIVEREDVEN TRICULAR 0 [facility] ICD-Ventricular Fibrillation 0 [facility] ICD-VVDELAY_MS 0 ms [facility] Lead Impedance (LV) 418 ohm [facility] Lead Impedance (RV) 361 ohm [facility] Lead Impedance High Voltage 61 ohm [facility] Lead1 Mfg MDT [facility] Lead2 Mfg MDT [facility] Lead3 Mfg MDT [facility] Location LV [facility] Location RA [facility] Location RV [facility] Lower Rate (bpm) 45 {beats}/min [facility] LV PACING % 98.08 % [facility] Max Sensor Rate (bpm) 120 {beats}/min [facility] MDT_PROG_TACHY_ZONE_DE TECTIONS_STATUS ENABLED [facility] Model [id number] [place] XT HF Quad ASSISTANT CENTER MANAGER-D MRI [facility] Model 4798 Attain Stabilit y Quad MRI SureOran [facility] Model 5076 CapSureFix Novus [facility] Model 6935M Sprint Quattro Secure S [facility] Pacemaker Dependent? NO [facility] Pacing Mode DDD [facility] Serial Number [id number] [facility] Serial Number [id number] [facility] Serial Number [id number] [facility] Serial Number [id number] [facility] Test Charge Energy 40.0 J [facility] Test Charge Time 0 s [facility] Therapy Status (Vent) Enabled [facility] Thresh LV Capture Amplitude (volts) 0.75 V [facility] Thresh LV Capture Duration (ms) 0.40 ms [facility] Thresh RA Capture Amplitude (volts) 0.50 V [facility] Thresh RA Capture Duration (ms) 0.40 ms [facility] Thresh RA Sensing Amplitude (mvolts) 4.4 mV [facility] Thresh RV Capture Amplitude (VOLTS) 0.75 V [facility] Thresh RV Capture Duration (MS) 0.40 ms [facility] Thresh RV Sensing Amplitude (MVOLTS) 20.0 mV [facility] Tracking Rate (bpm) 130 {beats}/min [facility] VF Zone Detection Interval 320 ms [facility] VF Zone Therapy Configuration 1 ATP(s) + 6 Shock(s) [facility] No Panel Informationon 08-06 BLANK _ [facility] ICD-Fast Ventricular Tachycardia 0 [facility] Implant Date 2023 [facility] CBC W Auto Differential pane l (Bld)on 07-24-2023 Basophils (Bld) [#/Vol] 0.13 10*3/uL High <0.11 k/uL [facility] Basophils/100 WBC (Bld) 1.0 % [facility] Differential cell count method Nom (Bld) Auto [facility] Eosinophils (Bld) [#/Vol] 0.46 10*3/uL High <0.46 k/uL [facility] Eosinophils/100 WBC (Bld) 3.4 % [facility] Erythrocyte distribution width (RBC) [Ratio] 15.0 % 11.5 - 15.0 % [facility] Hematocrit (Bld) [Volume fraction] 40.8 % 36.0 - 46.0 % [facility] Hemoglobin (Bld) [Mass/Vol] 12.9 g/dL 11.5 - 15.5 g/dL [facility] Immature granulocytes (Bld) [#/Vol] 0.17 10*3/uL High <0.10 k/uL [facility] Immature granulocytes/100 WBC (Bld) 1.3 % [facility] Lymphocytes (Bld) [#/Vol] 3.09 10*3/uL 1.00 - 4.00 k/uL [facility] Lymphocytes/100 WBC (Bld) 23.0 % [facility] MCH (RBC) [Entitic mass] 29.9 pg 26.0 - 34.0 pg [facility] MCHC (RBC) [Mass/Vol] 31.6 g/dL 30.5 - 36.0 g/dL [facility] MCV (RBC) [Entitic vol] 94.7 fL 80.0 - 100.0 fL [facility] Monocytes (Bld) [#/Vol] 1.15 10*3/uL High <0.87 k/uL [facility] Monocytes/100 WBC (Bld) 8.6 % [facility] Neutrophils (Bld) [#/Vol] 8.45 10*3/uL High 1.45 - 7.50 k/uL [facility] Neutrophils/100 WBC (Bld) 62.7 % [facility] Nucleated RBC (Bld) [#/Vol] <0.01 k/uL [facility] Nucleated RBC/100 WBC (Bld) [Ratio] 0.0 /100 WBC [facility] Platelet mean volume (Bld) [Entitic vol] 10.8 fL 9.0 - 12.7 fL [facility] Platelets (Bld) [#/Vol] 230 10*3/uL 150 - 400 k/uL [facility] RBC (Bld) [#/Vol] 4.31 10*6/uL 3.90 - 5.2 0 m/uL [facility] WBC (Bld) [#/Vol] 13.45 10*3/uL High 3.70 - 11.00 k/uL [facility] Comprehensive metabolic 2000 panelon 07-24-2023 Albumin [Mass/Vol] 4.1 g/dL 3.9 - 4.9 g/dL [facility] ALP [Catalytic activity/Vol] 66 U/L 34 - 123 U/L [facility] ALT [Catalytic activity/Vol] 11 U/L 7 - 38 U/L [facility] Anion gap [Moles/Vol] 12 mmol/L 9 - 18 mmol/L [facility] AST [Catalytic activity/Vol] 19 U/L 13 - 35 U/L [facility] Bilirubin [Mass/Vol] 0.4 mg/dL 0.2 - 1 .3 mg/dL [facility] Calcium [Mass/Vol] 9.9 mg/dL 8.5 - 10. 2 mg/dL [facility] Chloride [Moles/Vol] 103 mmol/L 97 - 10 5 mmol/L [facility] CO2 [Moles/Vol] 26 mmol/L 22 - 30 mmol/L [facility] Creatinine [Mass/Vol] 1.08 mg/dL High 0.58 - 0.96 mg/dL [facility] Estimated Glomerular Filtration Rate 53 mL/min/1.73m Low >=60 mL/min/1.73 m [facility] Glucose [Mass/Vol] 89 mg/dL 74 - 99 mg/dL [facility] Potassium [Moles/Vol] 4.5 mmol/L 3.7 - 5.1 mmol/L [facility] Protein [Mass/Vol] 7.5 g/dL 6.3 - 8.0 g/dL [facility] Sodium [Moles/Vol] 141 mmol/L 136 - 144 mmol/L [facility] Urea nitrogen [Mass/Vol] 32 mg/dL High 7 - 21 mg/dL [facility] T3 FREE BLDon 07-24-2023 Free T3 [Mass/Vol] 2.0 pg/mL Low 2.3 - 4.1 pg/mL [facility] T4 FREE/FREE THYROXon 2023 Free T4 [Mass/Vol] 1.5 ng/dL 0.9 - 1.7 ng/dL [facility] TSH BLDon 07-24-2023 TSH Qn 2.430 m[IU]/L 0.270 - 4.200 mIU/L [facility] VITAMIN B12 BLOODon 07-24-19 Cobalamin (Vitamin B12) [Mass/Vol] 520 pg/mL 232 - 1,245 pg/mL [facility] CBC W Auto Differential pane l (Bld)on 07-18-2023 Basophils (Bld) [#/Vol] 0.10 10*3/uL Normal <0.11 [facility] Comment on above: Order Comment: Speci men Type: BLOOD SPECIMENOrdering Facility: [facility] Address: [address] [place] [address] Performed By: #### 5 7021-8 ####[facility]ORATORYCLIA [id number] [place] [address] [place] Basophils/100 WBC (Bld) 1.1 % Normal [facility] Comment on above: Order Comment: Speci men Type: BLOOD SPECIMENOrdering Facility: [facility] Address: [address] [place] [address] Performed By: #### 5 7021-8 ####[facility] LABORATORYCLIA [id number] [place] [id number] [place] Differential cell count method Nom (Bld) Auto Normal [facility] Comment on above: Order Comment: Speci men Type: BLOOD SPECIMENOrdering Facility: [facility] Address: [address] [place] [address] Performed By: #### 5 7021-8 ####[facility] LABORATORYCLIA [id number] [place] [id number] [place] Eosinophils (Bld) [#/Vol] 0.20 10*3/uL Normal <0.46 [facility] Comment on above: Order Comment: Speci men Type: BLOOD SPECIMENOrdering Facility: [facility] Address: [address] [place] [address] Performed By: #### 5 7021-8 ####[facility] LABORATORYCLIA [id number] [place] [id number] [place] Eosinophils/100 WBC (Bld) 2.1 % Normal [facility] Comment on above: Order Comment: Speci men Type: BLOOD SPECIMENOrdering Facility: [facility] Address: [address] [place] [address] Performed By: #### 5 7021-8 ####[facility] LABORATORYCLIA [id number] [place] [address] [place] Erythrocyte distribution width (RBC) [Ratio] 15.1 % High 11.5-15.0 [facility] Comment on above: Order Comment: Speci men Type: BLOOD SPECIMENOrdering Facility: [facility] Address: [address] [place] [address] Performed By: #### 5 7021-8 ####[facility] LABORATORYCLIA [id number] [place] [address] [place] Hematocrit (Bld) [Volume fraction] 36.1 % Normal 36.0-46.0 [facility] Comment on above: Order Comment: Speci men Type: BLOOD SPECIMENOrdering Facility: [facility] Address: [address] [place] [address] Performed By: #### 5 7021-8 ####[facility] LABORATORYCLIA [id number] [place] [id number] [place] Hemoglobin (Bld) [Mass/Vol] 11.7 g/dL Normal 11.5-15.5 [facility] Comment on above: Order Comment: Speci men Type: BLOOD SPECIMENOrdering Facility: [facility] Address: [address] [place] [address] Performed By: #### 5 7021-8 ####[facility] LABORATORYCLIA [id number] [place] [address] [place] Immature granulocytes (Bld) [#/Vol] 0.05 10*3/uL Normal <0.10 [facility] Comment on above: Order Comment: Speci men Type: BLOOD SPECIMENOrdering Facility: [facility] Address: [address] [place] [address] Performed By: #### 5 7021-8 ####[facility] LABORATORYCLIA [id number] [place] [address] [place] Immature granulocytes/100 WBC (Bld) 0.5 % Normal [facility] Comment on above: Order Comment: Speci men Type: BLOOD SPECIMENOrdering Facility: [facility] Address: [address] [place] [address] Performed By: #### 5 7021-8 ####[facility] LABORATORYCLIA [id number] [place] [address] [place] Lymphocytes (Bld) [#/Vol] 3.38 10*3/uL Normal 1.00-4.00 [facility] Comment on above: Order Comment: Speci men Type: BLOOD SPECIMENOrdering Facility: [facility] Address: [address] [place] [address] Performed By: #### 5 7021-8 ####[facility] LABORATORYCLIA [id number] [address] [place] Lymphocytes/100 WBC (Bld) 36.1 % Normal [facility] Comment on above: Order Comment: Speci men Type: BLOOD SPECIMENOrdering Facility: [facility] Address: [address] [place] [address] Performed By: #### 5 7021-8 ####[facility] LABORATORYCLIA [id number] [place] [address] [place] MCH (RBC) [Entitic mass] 30.0 pg Normal 26.0-34.0 [facility] Comment on above: Order Comment: Speci men Type: BLOOD SPECIMENOrdering Facility: [facility] Address: [address] [place] [address] Performed By: #### 5 7021-8 ####[facility] LABORATORYCLIA [id number] [place] [id number] [place] MCHC (RBC) [Mass/Vol] 32.4 g/dL Normal 30.5-36.0 [facility] Comment on above: Order Comment: Speci men Type: BLOOD SPECIMENOrdering Facility: [facility] Address: [address] [place] [address] Performed By: #### 5 7021-8 ####[facility] LABORATORYCLIA [id number] [place] [id number] [place] MCV (RBC) [Entitic vol] 92.6 fL Normal 80.0-100.0 [facility] Comment on above: Order Comment: Speci men Type: BLOOD SPECIMENOrdering Facility: [facility] Address: [address] [place] [address] Performed By: #### 5 7021-8 ####[facility] LABORATORYCLIA [id number] [place] [address] [place] Monocytes (Bld) [#/Vol] 0.81 10*3/uL Normal <0.87 [facility] Comment on above: Order Comment: Speci men Type: BLOOD SPECIMENOrdering Facility: [facility] Address: [address] [place] [address] Performed By: #### 5 7021-8 ####[facility] LABORATORYCLIA [id number] [place] [id number] [place] Monocytes/100 WBC (Bld) 8.6 % Normal [facility] Comment on above: Order Comment: Speci men Type: BLOOD SPECIMENOrdering Facility: [facility] Address: [address] [place] [address] Performed By: #### 5 7021-8 ####[facility] LABORATORYCLIA [id number] [place] [id number] [place] Neutrophils (Bld) [#/Vol] 4.83 10*3/uL Normal 1.45-7.50 [facility] [facility] Comment on above: Order Comment: Speci men Type: BLOOD SPECIMENOrdering Facility: [facility] Address: [address] [place] [address] Performed By: #### 5 7021-8 ####[facility] LABORATORYCLIA [id number] [place] [id number] [place] Neutrophils/100 WBC (Bld) 51.6 % Normal [facility] Comment on above: Order Comment: Speci men Type: BLOOD SPECIMENOrdering Facility: [facility] Address: [address] [place] [address] Performed By: #### 5 7021-8 ####[facility] LABORATORYCLIA [id number] [place] [address] [place] Nucleated RBC (Bld) [#/Vol] 10*3/uL Normal <0.01 [facility] Comment on above: Order Comment: Speci men Type: BLOOD SPECIMENOrdering Facility: [facility] Address: [address] [place] [address] Performed By: #### 5 7021-8 ####[facility] LABORATORYCLIA [id number] [place] [address] [place] Nucleated RBC/100 WBC (Bld) [Ratio] 0.0 /100 WBC Normal [facility] Comment on above: Order Comment: Speci men Type: BLOOD SPECIMENOrdering Facility: [facility] Address: [address] [place] [address] Performed By: #### 5 7021-8 ####[facility]ORATORYCLIA [id number] [place] [id number] [place] Platelet mean volume (Bld) [Entitic vol] 10.2 fL Normal 9.0-12.7 [facility] Comment on above: Order Comment: Speci men Type: BLOOD SPECIMENOrdering Facility: [facility] Address: [address] [place] [address] Performed By: #### 5 7021-8 ####[facility] LABORATORYCLIA [id number] [place] [id number] [place] Platelets (Bld) [#/Vol] 205 10*3/uL Normal 150-400 [facility] Comment on above: Order Comment: Speci men Type: BLOOD SPECIMENOrdering Facility: [facility] Address: [address] [place], [place] [address] Performed By: #### 5 7021-8 ####[facility]ORATORYCLIA [id number] [place] [id number] [facility] RBC (Bld) [#/Vol] 3.90 10*6/uL Normal 3.90-5.20 [facility] Comment on above: Order Comment: Speci men Type: BLOOD SPECIMENOrdering Facility: [facility] Address: [address] [place] [address] Performed By: #### 5 7021-8 ####[facility] LABORATORYCLIA [id number] [place] [id number] [facility] WBC (Bld) [#/Vol] 9.37 10*3/uL Normal 3.70-11.00 [facility] Comment on above: Order Comment: Speci men Type: BLOOD SPECIMENOrdering Facility: [facility] Address: [address] [place] [address] Performed By: #### 5 7021-8 ####[facility]ORATORYCLIA [id number] [place] [id number] [facility] CNDSon 07-18-2023 CNDS HNO ID: [id number] Author: ANGELICA SILVA MD Service: Hospital Medicine [...] (HCC) (POA: Yes) 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 (POA: Yes) Acute hypoxic respiratory failure (HCC) (POA: Unknown) Atrial fibrillation (HCC) (POA: Unknown) LBBB (left bundle branch block) (POA: Unknown) Presence of cardiac resynchronization therapy defibrillator (ASSISTANT CENTER MANAGER-D) (POA: Unknown) Resolved Problems: * No resolved hospital problems. 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 chronic LBBB 77 year old female, who presented to [facility] due to concerns for chest pressure with associated postural lightheadedness and dyspnea She was subsequently admitted to [facility] She had lexiscan stress test which was [...] IV Lasix And she was transferred to [facility] for consideration of inpatient ASSISTANT CENTER MANAGER implantation given her left bundle branch block Pt was seen by EP and she had MDT ASSISTANT CENTER MANAGER-D insertion on 08/14 In regards to heart [...] week follow up with EP ROSEMARY at [facility] office with device check prior. OPERATIONS/PROCEDURE DURING THIS HOSPITALIZATION: Procedure(s) (LRB): INSERTION PERM IMPLANTABLE DEFIBRILLATOR SYSTEM, W/TRANSVENOUS LEAD(S) (N/A) INSERTION CORONARY SINUS/LT VENTRICULAR LEAD W/INITIAL INSERTION OF PACEMAKER/DEFIB GENERATOR (N/A) CONSULTS DURING HOSPITALIZATION: Treatment Team: Attending Provider: Angelica Silva MD Primary Service: , [facility] Consulting: Pili Wells MD Orders Placed [...] to ausc (more content not included)... Normal [facility] Comprehensive metabolic 2000 panelon 07-18-2023 Albumin [Mass/Vol] 3.5 g/dL Low 3.9-4.9 [facility] Comment on above: Order Comment: Speci men Type: BLOOD SPECIMEN [facility] Address: [address] [place] [address] Performed By: #### 2 4321-2, 05488-7 #### [facility] CLIA [id number] [place] [address] [place] ALP [Catalytic activity/Vol] 52 U/L Normal 34-123 [facility] Comment on above: Order Comment: Speci men Type: BLOOD SPECIMEN [facility] Address: [address] [place] [address] Performed By: #### 2 4320-2, #### [facility] CLIA [id number] [address] [place] [address] [place] ALT [Catalytic activity/Vol] 18 U/L Normal 7-38 [facility] Comment on above: Order Comment: Speci men Type: BLOOD SPECIMEN [facility] Address: [address] [place] [address] Performed By: #### 2 2, #### [facility] CLIA [id number] [address] [place] [address] [place] Anion gap [Moles/Vol] 8 mmol/L Low 9-18 [facility] Comment on above: Order Comment: Speci men Type: BLOOD SPECIMEN [facility] Address: [address] [place] [address] Performed By: #### 2 4320-2, #### [facility] CLIA [id number] [address] [place] [address] [place] AST [Catalytic activity/Vol] 18 U/L Normal 13-35 [facility] Comment on above: Order Comment: Speci men Type: BLOOD SPECIMEN [facility] Address: [address] [place] [address] Performed By: #### 2 2, #### [facility] CLIA [id number] [address] [place] [address] [place] Bilirubin [Mass/Vol] 0.4 mg/dL Normal 0.2-1.3 [facility] Comment on above: Order Comment: Speci men Type: BLOOD SPECIMEN [facility] Address: [address] [place] [address] Performed By: #### 2 432-2, #### [facility] CLIA [id number] [address] [place] [address] [place] Calcium [Mass/Vol] 8.8 mg/dL Normal 8.5-10.2 [facility] Comment on above: Order Comment: Speci men Type: BLOOD SPECIMEN [facility] Address: [address] [place] [address] Performed By: #### 2 4321-2, #### [facility] CLIA [id number] [address] [place] [address] [place] Chloride [Moles/Vol] 105 mmol/L Normal 97-105 [facility] Comment on above: Order Comment: Speci men Type: BLOOD SPECIMEN [facility] Address: [address] [place] [address] Performed By: #### 2 4321-2, #### [facility] CLIA [id number] [address] [place] [address] [place] CO2 [Moles/Vol] 27 mmol/L Normal 22-30 [facility] Comment on above: Order Comment: Speci men Type: BLOOD SPECIMEN [facility] Address: [address] [place] [address] Performed By: #### 2 4321-2, #### [facility] CLIA [id number] [address] [place] [address] [place] Creatinine [Mass/Vol] 1.10 mg/dL High 0.58-0.96 [facility] Comment on above: Order Comment: Speci men Type: BLOOD SPECIMEN [facility] Address: [address] [place] [address] Performed By: #### 2 4321-2, #### [facility] CLIA [id number] [address] [place] [address] [place] Creatinine and Glomerular filtration rate.predicted panel (S/P/Bld) 52 mL/min/1.73m??? Low >=60 [facility] Comment on above: Order Comment: Speci men Type: BLOOD SPECIMEN [facility] Address: [address] [place] [address] Result Comment: Aaron mated Glomerular Filtration Rate [...] GFR. Performed By: #### 2 432-, #### [facility] CLIA [id number] [place] [address] [place] Glucose [Mass/Vol] 95 mg/dL Normal 74-99 [facility] Comment on above: Order Comment: Lenard jesus Type: BLOOD SPECIMEN [facility] Address: [address] [place] [address] Result Comment: The [place] Diabetes [employer] (ADA) provides guidance for cutoff [...] Standards of Medical Care in Diabetes 2016, [place] [employer]. Diabetes Care. 2016.39(Suppl 1). Performed By: #### 2 4320-06, #### [facility] CLIA [id number] [place] [address] [place] Potassium [Moles/Vol] 4.0 mmol/L Normal 3.7-5.1 [facility] Comment on above: Order Comment: Lenard jesus Type: BLOOD SPECIMEN [facility] Address: [address] [place] [address] Performed By: #### 2 432-, #### [facility] CLIA [id number] [address] [place] [address] [place] Protein [Mass/Vol] 6.2 g/dL Low 6.3-8.0 [facility] Comment on above: Order Comment: Speci men Type: BLOOD SPECIMEN [facility] Address: [address] [place] [address] Performed By: #### 2 4321-2, #### [facility] CLIA [id number] [address] [place] [address] [place] Sodium [Moles/Vol] 140 mmol/L Normal 136-144 [facility] Comment on above: Order Comment: Speci men Type: BLOOD SPECIMEN [facility] Address: [address] [place] [address] Performed By: #### 2 4321-2, #### [facility] CLIA [id number] [address] [place] [address] [place] Urea nitrogen [Mass/Vol] 36 mg/dL High 7-21 [facility] Comment on above: Order Comment: Speci men Type: BLOOD SPECIMEN [facility] Address: [address] [place] [address] Performed By: #### 2 4321-2, #### [facility] CLIA [id number] [address] [place] [address] [place] Magnesium SerPl-mCncon 07-17 Magnesium [Mass/Vol] 2.3 mg/dL Normal 1.7-2.3 [facility] Comment on above: Order Comment: Speci men Type: BLOOD SPECIMEN [facility] Address: [address] [place] [address] Performed By: #### 5 8410-2 #### [facility] CLIA [id number] [address] [place] [address] [place] NURSING PROGon 07-18-2023 NURSING PROG HNO ID: [id number] Author: CHON RAMSEY RN Service: Nursing Author [...] daughter is here to take her home. [facility] ALLIED HEALTHon 07-17-2023 ALLIED HEALTH HNO ID: [id number] Author: ANAND AMIN RT(R) Service: ? Author [...] PATIENT PRESENTS WITH AN IMPLANTABLE OR ATTACHED FOOD TECHNOLOGIST: No RADIOLOGY DEPARTMENT: General X-ray: Exam(s) Completed: Chest X-Ray PERIPHERAL IV DATA: Not applicable SIGNED BY: RT iCndy(R) July 17, 2023 10:02 AM [facility] ANES POSTPROC EVALon 024 ANES POSTPROC EVAL HNO ID: [id number] Author: GRISELDA SALMERON MD Service: Anesthesiology Author [...] July 17, 2023 TIME: 7:14 AM CSN: [id number] Normal [facility] Basic metabolic 2000 panelon 07-17-2023 Anion gap [Moles/Vol] 9 mmol/L Normal 9-18 [facility] Comment on above: Order Comment: Speci edin Type: BLOOD SPECIMEN [facility] Address: [address] [place] [address] Performed By: #### 2 4321-2 #### [facility] CLIA [id number] [address] [place] [address] [place] Calcium [Mass/Vol] 9.0 mg/dL Normal 8.5-10.2 [facility] Comment on above: Order Comment: Lenard jesus Type: BLOOD SPECIMEN [facility] Address: [address] [place] [address] Performed By: #### 2 4321-2 #### [facility] CLIA [id number] [address] [place] [address] [place] Chloride [Moles/Vol] 103 mmol/L Normal 97-105 [facility] Comment on above: Order Comment: Speci men Type: BLOOD SPECIMEN [facility] Address: [address] [place] [address] Performed By: #### 2 4321-2 #### [facility] CLIA [id number] [address] [place] [address] [place] CO2 [Moles/Vol] 26 mmol/L Normal 22-30 [facility] Comment on above: Order Comment: Speci men Type: BLOOD SPECIMEN [facility] Address: [address] [place] [address] Performed By: #### 2 4321-2 #### [facility] CLIA [id number] [address] [place] [address] Creatinine [Mass/Vol] 0.98 mg/dL High 0.58-0.96 [facility] Comment on above: Order Comment: Speci men Type: BLOOD SPECIMEN [facility] Address: [address] [place] [address] Performed By: #### 2 4321-2 #### [facility] CLIA [id number] [address] [place] [address] Creatinine and Glomerular filtration rate.predicted panel (S/P/Bld) 60 mL/min/1.73m??? Normal >=60 [facility] Comment on above: Order Comment: Speci men Type: BLOOD SPECIMEN [facility] Address: [address] [place] [address] Result Comment: Aaron mated Glomerular Filtration Rate [...] GFR. Performed By: #### 2 4321-2 #### [facility] CLIA [id number] [address] [place] [address] [place] Glucose [Mass/Vol] 120 mg/dL High 74-99 [facility] Comment on above: Order Comment: Lenard jesus Type: BLOOD SPECIMEN [facility] Address: [address] [place] [address] Result Comment: The [place] Diabetes Association (ADA) provides guidance for cutoff [...] Standards of Medical Care in Diabetes 2016, [place] [employer]. Diabetes Care. 2016.39(Suppl 1). Performed By: #### 2 4321-2 #### [facility] CLIA [id number] [address] [place] [address] [place] Potassium [Moles/Vol] 4.6 mmol/L Normal 3.7-5.1 [facility] Comment on above: Order Comment: Lenard jesus Type: BLOOD SPECIMEN [facility] Address: [address] [place] [address] Performed By: #### 2 4321-2 #### [facility] CLIA [id number] [address] [place] [address] [place] Sodium [Moles/Vol] 138 mmol/L Normal 136-144 [facility] Comment on above: Order Comment: Ernestinei men Type: BLOOD SPECIMEN [facility] Address: [address] [place] [address] Performed By: #### 2 4321-2 #### [facility] CLIA [id number] [address] [place] [address] [place] Urea nitrogen [Mass/Vol] 33 mg/dL High 7-21 [facility] Comment on above: Order Comment: Ernestinei men Type: BLOOD SPECIMEN [facility] Address: [address] [place] [address] Performed By: #### 2 4321-2 #### [facility] CLIA [id number] [address] [place] [address] [place] CBC panel Auto (Bld)on 07-16 Erythrocyte distribution width (RBC) [Ratio] 14.6 % Normal 11.5-15.0 [facility] Comment on above: Order Comment: Speci men Type: BLOOD SPECIMEN [facility] Address: [address] [place] [address] Performed By: #### 5 8410-2 #### [facility] CLIA [id number] [address] [place] [address] OF [place] Hematocrit (Bld) [Volume fraction] 38.8 % Normal 36.0-46.0 [facility] Comment on above: Order Comment: Speci men Type: BLOOD SPECIMEN [facility] Address: [address] [place] [address] Performed By: #### 5 8410-2 #### [facility] CLIA [id number] [address] [place] [address] [place] Hemoglobin (Bld) [Mass/Vol] 12.8 g/dL Normal 11.5-15.5 [facility] Comment on above: Order Comment: Speci men Type: BLOOD SPECIMEN [facility] Address: [address] [place] [address] Performed By: #### 5 8410-2 #### [facility] CLIA [id number] [address] [place] [address] [place] MCH (RBC) [Entitic mass] 29.8 pg Normal 26.0-34.0 [facility] Comment on above: Order Comment: Speci men Type: BLOOD SPECIMEN [facility] Address: [address] [place] [address] Performed By: #### 5 8410-2 #### [facility] CLIA [id number] [address] [place] [address] [place] MCHC (RBC) [Mass/Vol] 33.0 g/dL Normal 30.5-36.0 [facility] Comment on above: Order Comment: Speci men Type: BLOOD SPECIMEN [facility] Address: [address] [place] [address] Performed By: #### 5 8410-2 #### [facility] CLIA [id number] [address] [place] [address] [place] MCV (RBC) [Entitic vol] 90.4 fL Normal 80.0-100.0 [facility] Comment on above: Order Comment: Speci men Type: BLOOD SPECIMEN [facility] Address: [address] [place] [address] Performed By: #### 5 8410-2 #### [facility] CLIA [id number] [address] [place] [address] [place] Nucleated RBC (Bld) [#/Vol] 10*3/uL Normal <0.01 [facility] Comment on above: Order Comment: Speci men Type: BLOOD SPECIMEN [facility] Address: [address] [place] [address] Performed By: #### 5 8410-2 #### [facility] CLIA [id number] [address] [place] [address] [place] Platelet mean volume (Bld) [Entitic vol] 9.9 fL Normal 9.0-12.7 [facility] Comment on above: Order Comment: Speci men Type: BLOOD SPECIMEN [facility] Address: [address] [place] [address] Performed By: #### 5 8410-2 #### [facility] CLIA [id number] [address] [place] [address] [place] Platelets (Bld) [#/Vol] 266 10*3/uL Normal 150-400 [facility] Comment on above: Order Comment: Speci men Type: BLOOD SPECIMEN [facility] Address: [address] [place] [address] Performed By: #### 5 8410-2 #### [facility] CLIA [id number] [address] [place] [address] [place] RBC (Bld) [#/Vol] 4.29 10*6/uL Normal 3.90-5.20 [facility] Comment on above: Order Comment: Speci men Type: BLOOD SPECIMEN [facility] Address: [address] [place] [address] Performed By: #### 5 8410-2 #### [facility] CLIA [id number] [address] [place] [address] [place] WBC (Bld) [#/Vol] 11.00 10*3/uL Normal 3.70-11.00 [facility] Comment on above: Order Comment: Speci men Type: BLOOD SPECIMEN [facility] Address: [address] [place] [address] Performed By: #### 5 8410-2 #### [facility] CLIA [id number] [facility] CNPNon 07-17-2023 CNPN Telephone (FVPRAD) ----- SANDRA SCHMITZ ([id number]) 1945 F [facility]* Date Time Provider Department 07/17/23 MORENITA HILL FVFILIBERTO During your visit today, we recorded the following information about you: Morenita Hill APRN.GEOPHYSICS SCIENTIST 07/17/2023 11:05 AM Signed Please call patient to arrange for appointment with EP ROSEMARY or Dr. Wellington with device check immediately prior at [facility] office. If we could coordinate this for same day she is seeing Dr. Wells, that would be great, in the next ~2 weeks. Thank you! Morenita Hill APRN.GEOPHYSICS SCIENTIST Allergies As of Date: 07/17/2023 Noted Allergy [...] right [M19.071] 08/02/2022 Coronary artery disease involving alutiiq lopez*08/02/2022 Vitamin D deficiency [E55.9] 08/02/2022 Somatic [...] respiratory failure (more content not included)... Normal [facility] CONSULT PROGon 07-17-2023 CONSULT PROG HNO ID: [id number] Author: MORENITA HILL APRN.GEOPHYSICS SCIENTIST Service: Electrophysiology Author Type: Nurse Practitioner Type: Consult Progress Note Filed: 07/17/2023 11:02 Note Text: [facility]ARD[facility]ICINE PROGRESS NOTE PRIMARY SERVICE: 5, Fv HOSPITAL DAY: # 4 INTERVAL HISTORY POD #1 s/p MDT ASSISTANT CENTER MANAGER-D for primary prevention in the setting of [...] Chronic, non-ischemic HFrEF with LBBB s/p MDT ASSISTANT CENTER MANAGER-D POD #1 s/p MDT ASSISTANT CENTER MANAGER-D, reports feeling fatigued, but overall feeling well. [...] week follow up with EP ROSEMARY at [facility] office with device check prior. Patient may be discharged from EP perspective. Case to be discussed with staff, Dr. Muro. Morenita Hill APRN.GEOPHYSICS SCIENTIST July 17, 2023 10:55 AM EP Pager: [phone] Normal [facility] CONSULT PROG HNO ID: [id number] Author: PILI WELLS MD Service: Cardiovascular Medicine [...] (H) 4.3 - 5.6 % Final Comment: [place] [employer] guidelines indicate that patients with [...] On low doses of GDMT LBBB: s/p ASSISTANT CENTER MANAGER-D 07/16/23 Non-obstructive CAD: stable, ischemic testing recently with no ischemia or infarction. PLAN/RECOMMENDATIONS: GDMT: continue low dose entresto, start toprol XL 12.5mg today. Start PO lasix 20mg daily. Benedict (more content not included)... Normal [facility] ECG COMPLETEon 07-17-2023 ECG COMPLETE Ventricular Rate : 5 4 BPM Atrial Rate : 53 BPM P-R Interval : 133 ms QRS Duration : 133 ms Q-T Interval : 464 ms QTC Calculation(Bazett) : 440 ms Calculated P [place] : 13 degrees Calculated R [place] : -66 degrees Calculated T [place] : 19 degrees Atrial-sensed ventricular-paced complexes Abnormal ECG Confirmed by ROSALIA WARNER MD ([id number]) on 08/23/2023 1:01:26 PM NAME : SANDRA SCHMITZ PID : [id number] : 1945 Gender : Female Race : ORD : [id number] Procedure Date : Jul 17 2023 08:44:51 Edit Date : Aug 23 2023 13:01:29 Diagnosis: Atrial-sensed ventricular-paced complexes Abnormal ECG Confirmed by ROSALIA WARNER MD ([id number]) on 08/23/2023 1:01:26 PM Test Reason : Post-OP Location : [address] : [address] Overread By : ROSALIA WARNER MD Edited By : ROSALIA WARNER MD Referred By : REMINGTON CAI Acquired by : WILFREDO THOMPSON [facility] NURSING PROGon 07-17-2023 NURSING PROG HNO ID: [id number] Author: CHON RAMSEY, RN Service: Nursing Author [...] MD Shira. Hold lasix 20mg Discharge cancelled. [facility] THERAPY NTon 07-17-2023 THERAPY NT HNO ID: [id number] Author: ZORAN HILL, PT, DPT Service: Physical Therapy Author Type: Physical Therapist Type: Therapy (PT/OT/Speech/Resp) Filed: 07/17/2023 09:00 Note Text: Physical Therapy Treatment Summary SERVICE DATE: 07/17/2023 SERVICE TIME: 08 to 0844 ROOM: [place] [address] PT 6 Clicks Score: 22 DISCHARGE RECOMMENDATIONS [...] CURRENT HOSPITAL COURSE Pt initially admitted to [facility] for acute on chronic HFrEF. She was stabilized with IV diuresis however course complicated by hypotension and bradycardia. 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 Normal [facility] Vancomycin West SerPl-mCncon 07-17-2023 Vancomycin random [Mass/Vol] 9.8 ug/mL Low 10.0-20.0 [facility] Comment on above: Order Comment: Speci men Type: BLOOD SPECIMEN Ordering Facility: [facility] Address: [address] [place] [id number] Result Comment: Refe rence ranges and high/low indicator flags are provided as general guidelines only. The treating physician must determine appropriate target levels/dosing based on the specific clinical situation. Performed By: #### 4 091-5 #### [facility] CLIA [id number] [place] [address] [place] XR CHEST 2V [...] Unremarkable. IMPRESSION: Cardiomegaly. No acute process seen Night Clerk: KEYANA Transcribe Date/Time: Jul 17 2023 10:35A Dictated by : FABIAN BRODERICK MD This examination was interpreted and the report reviewed and electronically signed by: FABIAN BRODERICK MD on Jul 17 2023 10:35AM EST [id number] [facility] ANES PRE-OPon 2023 ANES PRE-OP HNO ID: [id number] Author: GRISELDA SALMERON MD Service: Anesthesiology Author [...] failure (HCC) (+) 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 (+) LBBB (left [...] July 15 (more content not included)... Normal [facility] Basic metabolic 2000 panelon 2023 Anion gap [Moles/Vol] 17 mmol/L Normal 9-18 [facility] Comment on above: Order Comment: Speci men Type: BLOOD SPECIMEN Ordering Facility: [facility] Address: [address] [place] [address] Performed By: #### 2 4321-2, #### [facility] CLIA [id number] [address] [place] [address] [place] Calcium [Mass/Vol] 9.1 mg/dL Normal 8.5-10.2 [facility] Comment on above: Order Comment: Speci men Type: BLOOD SPECIMEN Ordering Facility: [facility] Address: [address] [place] [address] Performed By: #### 2 4320-2, #### [facility] CLIA [id number] [address] [place] [address] [place] Chloride [Moles/Vol] 105 mmol/L Normal 97-105 [facility] Comment on above: Order Comment: Speci men Type: BLOOD SPECIMEN Ordering Facility: [facility] Address: [address] [place] [address] Performed By: #### 2 2, #### [facility] CLIA [id number] [address] [place] [address] [place] CO2 [Moles/Vol] 21 mmol/L Low 22-30 [facility] Comment on above: Order Comment: Speci men Type: BLOOD SPECIMEN Ordering Facility: [facility] Address: [address] [place] [address] Performed By: #### 2 2, #### [facility] CLIA [id number] [address] [place] [address] [place] Creatinine [Mass/Vol] 1.04 mg/dL High 0.58-0.96 [facility] Comment on above: Order Comment: Speci men Type: BLOOD SPECIMEN Ordering Facility: [facility] Address: [address] [place] [address] Performed By: #### 2 2, #### [facility] CLIA [id number] [address] [place] [address] [place] Creatinine and Glomerular filtration rate.predicted panel (S/P/Bld) 56 mL/min/1.73m??? Low >=60 [facility] Comment on above: Order Comment: Speci men Type: BLOOD SPECIMEN Ordering Facility: [facility] Address: [address] [place] [address] Result Comment: Aaron mated Glomerular Filtration Rate [...] GFR. Performed By: #### 2 4320-, #### [facility] CLIA [id number] [place] [address] [place] Glucose [Mass/Vol] 94 mg/dL Normal 74-99 [facility] Comment on above: Order Comment: Lenard jesus Type: BLOOD SPECIMEN Ordering Facility: [facility] Address: [address] [place] [address] Result Comment: The [place] Diabetes Association (ADA) provides guidance for cutoff [...] Standards of Medical Care in Diabetes 2016, [place] [employer]. Diabetes Care. 2016.39(Suppl 1). Performed By: #### 2 4320-06, #### [facility] CLIA [id number] [address] [place] [address] [place] Potassium [Moles/Vol] 4.0 mmol/L Normal 3.7-5.1 [facility] Comment on above: Order Comment: Lenard jesus Type: BLOOD SPECIMEN Ordering Facility: [facility] Address: [address] [place] [address] Performed By: #### 2 4320-, #### [facility] CLIA [id number] [address] [place] [address] [place] Sodium [Moles/Vol] 143 mmol/L Normal 136-144 [facility] Comment on above: Order Comment: Speci men Type: BLOOD SPECIMEN Ordering Facility: [facility] Address: [address] [place] [address] Performed By: #### 2 4321-2, #### [facility] CLIA [id number] [address] [place] [address] [place] Urea nitrogen [Mass/Vol] 39 mg/dL High 7-21 [facility] Comment on above: Order Comment: Speci men Type: BLOOD SPECIMEN Ordering Facility: [facility] Address: [address] [place] [address] Performed By: #### 2 4321-2, #### [facility] CLIA [id number] [address] OF [facility] CASE MGT INIT ASSESon 2023 CASE MGT INIT ASSES HNO ID: [id number] Author: ESTELA BRIONES RN Service: ? Author [...] Current Advance Directive: Health Care Power of Rock Breaker;Living Will In Chart: No Current Living Arrangements [...] None Discharge Planning Patient Goal(s): General wellness [place] of Choice Explained: [place] of Choice Given: No Are you interested [...] Discharge Plan: Pt getting pacemaker. 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 Dtr Julia lives with her. SIGNATURE: Estela Briones RN PATIENT NAME: Sandra Schmitz DATE: 2023 TIME: 12:24 PM CONTACT #: [phone] [facility] CONSULTon 2023 CONSULT HNO ID: [id number] Author: PILI WELLS MD Service: Cardiovascular Medicine [...] no ischemia or infarction. PLAN/RECOMMENDATIONS: Agree with ASSISTANT CENTER MANAGER, planning for today. Can likely transition to PO lasix 40mg daily starting tomorrow. GDMT: continue low dose entresto, post ASSISTANT CENTER MANAGER placement can add toprol XL 12.5mg daily. Re-evaluate tomorrow post ASSISTANT CENTER MANAGER for additional medications if possible. 2L fluid [...] [place]. [place] [phone]; [place] [phone] Pili Wells MD Advanced [facility] Failure [facility] [place] [address] Appointment: [phone] ----- --- SERVICE DATE: 2023 SERVICE TIME: 10:00AM CONSULTING PHYSICIAN: pili wells PCP: Mandeep Houser DO ATTENDING: Angelica Silva MD REASON FOR CONSULT: Heart Failure CHIEF COMPLAINT: Bradycardia [R00.1] HISTORY OF PRESENT ILLNESS: Ms. Schmitz is a 77 year old female who presents for decompensated HF and EP eval for ASSISTANT CENTER MANAGER. Sandra Schmitz has a pmhx of non-ischemic CM, HTN, Hypothyroidism, LBBB, non-obstructive CAD who is transferred to for decompensated HF and EP eval for ASSISTANT CENTER MANAGER. Ns, Nadir reports that she has been [...] went to the hospital. On arrival to [facility] she was volume up, hypotensive. She [...] on chronic systolic CHF (congestive heart failure) ([facility]) 05/03/2020 Aspiration pneumonia ([facility]) 05/30/2020 Chest pain 05/03/2020 Chest pressure 01/23/2013 Chronic diastolic congestive heart failure ([facility]) 02/14/2021 Clostridium difficile diarrhea 09/28/2020 Complete uterovaginal prolapse Cystocele, midline Essential hypertension 06/14/2020 Homozygous Factor V Leiden mutation ([facility]) 05/03/2020 Hypothyroidism IBS (irritable [...] Disease Father (more content not included)... Normal [facility] Magnesium SerPl-mCncon 07-15 Magnesium [Mass/Vol] 2.2 mg/dL Normal 1.7-2.3 [facility] Comment on above: Order Comment: Speci men Type: BLOOD SPECIMEN Ordering Facility: [facility] Address: [address] [place] [address] Performed By: #### 2 4321-2, 52438-6 #### [facility] CLIA [id number] [place] NURSING PROGon 2023 NURSING PROG HNO ID: [id number] Author: ELEONORA ALVARADO RN Service: Nursing Author [...] note was completed by: Eleonora Alvarado Normal [facility] NURSING PROG HNO ID: [id number] Author: CHON RAMSEY RN Service: Nursing Author Type: Registered Nurse Type: Nursing Progress Note Filed: 2023 08:57 Note Text: Daily note: 0800: per MD Shira hold pt morning dose of IV lasix. Aware subq heparin held for procedure. Normal [facility] CBC panel Auto (Bld)on 07-14 Erythrocyte distribution width (RBC) [Ratio] 14.7 % Normal 11.5-15.0 [facility] Comment on above: Order Comment: Speci men Type: BLOOD SPECIMENOrdering Facility: [facility] Address: [facility] [place] [address] Performed By: #### 5 8410-2 ####[facility] [id number] [address] [place] Hematocrit (Bld) [Volume fraction] 38.7 % Normal 36.0-46.0 [facility] Comment on above: Order Comment: Speci men Type: BLOOD SPECIMENOrdering Facility: [facility] Address: [address] [place] [address] Performed By: #### 5 8410-2 ####[facility] [id number] [address] [place] Hemoglobin (Bld) [Mass/Vol] 12.7 g/dL Normal 11.5-15.5 [facility] Comment on above: Order Comment: Speci men Type: BLOOD SPECIMENOrdering Facility: [facility] Address: [address] [place] [address] Performed By: #### 5 8410-2 ####[facility] [id number] [address] [place] MCH (RBC) [Entitic mass] 29.7 pg Normal 26.0-34.0 [facility] Comment on above: Order Comment: Speci men Type: BLOOD SPECIMENOrdering Facility: [facility] Address: [address] [place] [address] Performed By: #### 5 8410-2 ####[facility] [id number] [address] STATES [facility] MCHC (RBC) [Mass/Vol] 32.8 g/dL Normal 30.5-36.0 [facility] Comment on above: Order Comment: Speci men Type: BLOOD SPECIMENOrdering Facility: [facility] Address: [address] [place] [address] Performed By: #### 5 8410-2 ####[facility] [id number] [address] [place] MCV (RBC) [Entitic vol] 90.6 fL Normal 80.0-100.0 [facility] Comment on above: Order Comment: Speci men Type: BLOOD SPECIMENOrdering Facility: [facility] Address: [address] [place] [address] Performed By: #### 5 8410-2 ####[facility] [id number] [place] [address] [place] Nucleated RBC (Bld) [#/Vol] 10*3/uL Normal <0.01 [facility] Comment on above: Order Comment: Speci men Type: BLOOD SPECIMENOrdering Facility: [facility] Address: [address] [place] [address] Performed By: #### 5 8410-2 ####[facility] [id number] [place] [id number] [place] Platelet mean volume (Bld) [Entitic vol] 10.2 fL Normal 9.0-12.7 [facility] Comment on above: Order Comment: Speci men Type: BLOOD SPECIMENOrdering Facility: [facility] Address: [address] [place] [address] Performed By: #### 5 8410-2 ####[facility] [id number] [place] [address] [place] Platelets (Bld) [#/Vol] 280 10*3/uL Normal 150-400 [facility] Comment on above: Order Comment: Speci men Type: BLOOD SPECIMENOrdering Facility: [facility] Address: [address] [place] [address] Performed By: #### 5 8410-2 ####[facility] [id number] [place] [address] [place] RBC (Bld) [#/Vol] 4.27 10*6/uL Normal 3.90-5.20 [facility] Comment on above: Order Comment: Speci men Type: BLOOD SPECIMENOrdering Facility: [facility] Address: [address] [place] [address] Performed By: #### 5 8410-2 ####[facility] [id number] [place] [id number] [place] WBC (Bld) [#/Vol] 7.64 10*3/uL Normal 3.70-11.00 [facility] Comment on above: Order Comment: Speci men Type: BLOOD SPECIMENOrdering Facility: [facility] Address: [address] [place] [address] Performed By: #### 5 8410-2 ####[facility] [id number] [place] [address] [place] Comprehensive metabolic 2000 panelon 07-15-2023 Albumin [Mass/Vol] 3.7 g/dL Low 3.9-4.9 [facility] Comment on above: Order Comment: Speci men Type: BLOOD SPECIMEN Ordering Facility: [facility] Address: [address] [place] [address] Performed By: #### 1 9123-9, 72946-4 #### [facility] CLIA [id number] [address] [place] [address] [place] ALP [Catalytic activity/Vol] 51 U/L Normal 34-123 [facility] Comment on above: Order Comment: Speci men Type: BLOOD SPECIMEN Order[facility] Facility: [facility] Address: [address] [place] [address] Performed By: #### 1 9123-9, 62074-5 #### [facility] CLIA [id number] [address] [place] [address] [place] ALT [Catalytic activity/Vol] Normal [facility] Comment on above: Order Comment: Speci men Type: BLOOD SPECIMEN Ordering Facility: [facility] Address: [address] [place] [address] Result Comment: Unab le to assay due to interference from hemolysis. Suggest reorder as clinically indicated. Performed By: #### 1 9123-9, 96558-6 #### [facility] CLIA [id number] [address] [place] [address] [place] Anion gap [Moles/Vol] 13 mmol/L Normal 9-18 [facility] Comment on above: Order Comment: Speci men Type: BLOOD SPECIMEN Ordering Facility: [facility] Address: [address] [place] [address] Performed By: #### 1 9123-9, 23913-0 #### [facility] CLIA [id number] [address] [place] [address] [place] AST [Catalytic activity/Vol] Normal [facility] Comment on above: Order Comment: Speci men Type: BLOOD SPECIMEN Ordering Facility: [facility] Address: [address] [place] [address] Result Comment: Unab le to assay due to interference from hemolysis. Suggest reorder as clinically indicated. Performed By: #### 1 23-9, #### [facility] CLIA [id number] [address] [place] [address] [place] Bilirubin [Mass/Vol] 0.7 mg/dL Normal 0.2-1.3 [facility] Comment on above: Order Comment: Speci men Type: BLOOD SPECIMEN Ordering Facility: [facility] Address: [address] [place] [address] Performed By: #### 1 9123-01, #### [facility] CLIA [id number] [address] [place] [address] [place] Calcium [Mass/Vol] 9.1 mg/dL Normal 8.5-10.2 [facility] Comment on above: Order Comment: Speci men Type: BLOOD SPECIMEN Ordering Facility: [facility] Address: [address] [place] [address] Performed By: #### 1 239, #### [facility] CLIA [id number] [address] [place] [address] [place] Chloride [Moles/Vol] 103 mmol/L Normal 97-105 [facility] Comment on above: Order Comment: Speci men Type: BLOOD SPECIMEN Ordering Facility: [facility] Address: [address] [place] [address] Performed By: #### 1 9123-01, #### [facility] CLIA [id number] [address] [place] [address] [place] CO2 [Moles/Vol] 25 mmol/L Normal 22-30 [facility] Comment on above: Order Comment: Speci men Type: BLOOD SPECIMEN Order[facility] Facility: [facility] Address: [address] [place] [address] Performed By: #### 1 239, 85172-4 #### [facility] CLIA [id number] [address] [place] [address] [place] Creatinine [Mass/Vol] 0.99 mg/dL High 0.58-0.96 [facility] Comment on above: Order Comment: Lenard jesus Type: BLOOD SPECIMEN Order[facility] Facility: [facility] Address: [address] [place] [address] Performed By: #### 1 9123-9, 93962-4 #### [facility] CLIA [id number] [address] [place] [address] [place] Creatinine and Glomerular filtration rate.predicted panel (S/P/Bld) 59 mL/min/1.73m??? Low >=60 [facility] Comment on above: Order Comment: Lenard jesus Type: BLOOD SPECIMEN Order[facility] Facility: [facility] Address: [address] [place] [address] Result Comment: Aaron mated Glomerular Filtration Rate [...] actual GFR. Performed By: #### 1 9123-9, 21231-5 #### [facility] CLIA [id number] [address] [place] [address] [place] Glucose [Mass/Vol] 95 mg/dL Normal 74-99 [facility] Comment on above: Order Comment: Lenard jesus Type: BLOOD SPECIMEN Order[facility] Facility: [facility] Address: [address] [place] [address] Result Comment: The [place] Diabetes Association (ADA) provides guidance for cutoff [...] Standards of Medical Care in Diabetes 2016, [place] [employer]. Diabetes Care. 2016.39(Suppl 1). Performed By: #### 1 9122-9, 06619-0 #### [facility] CLIA [id number] [address] [place] [address] [place] Potassium [Moles/Vol] 3.8 mmol/L Normal 3.7-5.1 [facility] Comment on above: Order Comment: Speci men Type: BLOOD SPECIMEN Order[facility] Facility: [facility] Address: [address] [place] [address] Performed By: #### 1 9123-01, 66303-9 #### [facility] CLIA [id number] [address] [place] [address] [place] Protein [Mass/Vol] 6.6 g/dL Normal 6.3-8.0 [facility] Comment on above: Order Comment: Speci men Type: BLOOD SPECIMEN Order[facility] Facility: [facility] Address: [address] [place] [address] Performed By: #### 1 9123-01, 30976-2 #### [facility] CLIA [id number] [address] [place] [address] [place] Sodium [Moles/Vol] 141 mmol/L Normal 136-144 [facility] Comment on above: Order Comment: Speci men Type: BLOOD SPECIMEN Ordering Facility: [facility] Address: [address] [place] [address] Performed By: #### 1 9123-01, 33253-0 #### [facility] CLIA [id number] [address] [place] [address] [place] Urea nitrogen [Mass/Vol] 38 mg/dL High 7-21 [facility] Comment on above: Order Comment: Speci men Type: BLOOD SPECIMEN Order[facility] Facility: [facility] Address: [address] [place] [address] Performed By: #### 1 9123-01, 70453-0 #### [facility] CLIA [id number] [address] [place] [address] [place] Magnesium SerPl-mCncon 07-14 Magnesium [Mass/Vol] 2.2 mg/dL Normal 1.7-2.3 [facility] Comment on above: Order Comment: Speci men Type: BLOOD SPECIMEN Ordering Facility: [facility] Address: [address] [place] [address] Performed By: #### 1 9123-9, 40522-6 #### [facility] CLIA [id number] [address] [place] NURSING PROGon 07-15-2023 NURSING PROG HNO ID: [id number] Author: DARIUS GUERRA RN Service: PICC Team [...] 15, 2023 TIME: 11:25 AM PAGER/CONTACT #: [phone] [facility] NURSING PROG HNO ID: [id number] Author: FLORENTINO REBOLLEDO RN Service: ? Author [...] I/O. call mckeon in reach. 1500 Cardiology GEOPHYSICS SCIENTIST in to see pt regarding plan of care. ICD to be placed tomorrow. NPO after midnight tonight except medications. questions and concerns addressed. call [facility]ckeon in reach. 1600 Monitor remains SR 90's. VSS. afebrile. denies dizziness or cp. independent in room with steady gait. I/O. Assessment unchanged from above. call [facility]on in reach. Normal [facility] THERAPY NTon 07-15-2023 THERAPY NT HNO ID: [id number] Author: DANIELLE JACOBS OT/L Service: Occupational Therapy Author Type: Occupational Therapist Type: Therapy (PT/OT/Speech/Resp) Filed: 07/15/2023 12:15 Note Text: Occupational Therapy Evaluation Summary SERVICE DATE: 07/15/2023 SERVICE TIME: 1006 to 1029 ROOM: [place] [address] OT 6 Clicks Score: 24 DISCHARGE RECOMMENDATIONS [...] CURRENT HOSPITAL COURSE Pt initially admitted to [facility] for acute on chronic HFrEF. She was stabilized with IV diuresis however course complicated by hypotension and bradycardia. She was transferred to [facility] for biventricular pacer defibrillator placement Relevant Past Medical History: HFrEF, LBBB, hypothyroidism HOME LIVING Patient Lives With: Family (pt lives with her dtr in a 1 story home) Assistance Available: Part-Time (pt reports that dtr works from home and Sunday typically, but company has been flexible and may allow her to picking table worker upon pt's d/c for first week) [...] No Skilled Need TREATMENT INTERVENTIONS Evaluation, Self Jail Management ([address]48) Timed Code Treatment (minutes): 8 Skilled Treatment Time (minutes): 23 TRAINING AND EDUCATION PROVIDED Assistive Device Use, Benefits of In-Hospital Mobility, Discharge Planning, Disease Specific Education, Energy Conservation, Expected Functional Level, Functional Mobility Involving ADLs, Grooming Tasks, Lower Extremity Dressing, Role of Occupational Therapy, Standing Balance to Improve [place] with ADLs/Self-Care, Toileting , Transfer - Sit [...] DATE: July 15, 2023 TIME: 12:15 PM [facility] THERAPY NT HNO ID: [id number] Author: ZORAN HILL, PT, DPT Service: Physical Therapy Author Type: Physical Therapist Type: Therapy (PT/OT/Speech/Resp) Filed: 07/15/2023 09:14 Note Text: Physical Therapy Evaluation Summary SERVICE DATE: 07/15/2023 SERVICE TIME: 830 to 853 ROOM: [place] [address] PT 6 Clicks Score: 23 DISCHARGE RECOMMENDATIONS [...] CURRENT HOSPITAL COURSE ON RNF, RA, upcoming ASSISTANT CENTER MANAGER device implant this admission Relevant Past Medical History: HFrEF, LBBB, hypothyroidism, multiple abdominal surgerise including cholecystectomy. HOME LIVING Patient Lives With: Family Assistance Available: Part-Time (Daughter works days, may be able to picking table worker for pt first week after d/c [...] Weakness (generalized) TREATMENT INTERVENTIONS Evaluation, Gait Training (48954) Timed Code Treatment (minutes): 8 Skilled Treatment [...] July 15, 2023 TIME: 9:11 AM Normal [facility] Basic metabolic 2000 panelon 07-14-2023 Anion gap [Moles/Vol] 11 mmol/L Normal 9-18 [facility] Comment on above: Order Comment: Speci men Type: BLOOD SPECIMENOrdering Facility: [facility] Address: [address] [place] [address] Performed By: #### 2 4321-2, 85494-1 ####[facility]ALLOU[facility] LABORATORYCLIA [id number] [place] [address] [place] Calcium [Mass/Vol] 9.2 mg/dL Normal 8.5-10.2 [facility] Comment on above: Order Comment: Speci men Type: BLOOD SPECIMENOrdering Facility: [facility] Address: [address] [place] [address] Performed By: #### 2 4321-2, ####[facility] LABORATORYCLIA [id number] [place] [id number] [place] Chloride [Moles/Vol] 104 mmol/L Normal 97-105 [facility] Comment on above: Order Comment: Speci men Type: BLOOD SPECIMENOrdering Facility: [facility] Address: [address] [place] [address] Performed By: #### 2 4321-2, ####[facility] LABORATORYCLIA [id number] [place] [address] [place] CO2 [Moles/Vol] 27 mmol/L Normal 22-30 [facility] Comment on above: Order Comment: Speci men Type: BLOOD SPECIMENOrdering Facility: [facility] Address: [address] [place] [address] Performed By: #### 2 4321-2, ####[facility] LABORATORYCLIA [id number] [place] [address] [place] Creatinine [Mass/Vol] 0.84 mg/dL Normal 0.58-0.96 [facility] Comment on above: Order Comment: Speci men Type: BLOOD SPECIMENOrdering Facility: [facility] Address: [address] [place] [address] Performed By: #### 2 4321-2, ####[facility] LABORATORYCLIA [id number] [place] [id number] [place] Creatinine and Glomerular filtration rate.predicted panel (S/P/Bld) 72 mL/min/1.73m??? Normal >=60 [facility] Comment on above: Order Comment: Speci men Type: BLOOD SPECIMENOrdering Facility: [facility] Address: [address] [place] [address] Result Comment: Aaron mated Glomerular Filtration Rate [...] Performed By: #### 2 432-, ####[facility] LABORATORYCLIA [id number] [place] [id number] [place] Glucose [Mass/Vol] 138 mg/dL High 74-99 [facility] Comment on above: Order Comment: Lenard jesus Type: BLOOD SPECIMENOrdering Facility: [facility] Address: [address] [place] [address] Result Comment: The [place] Diabetes Association (ADA) provides guidance for cutoff [...] Standards of Medical Care in Diabetes 2016, [place] [employer]. Diabetes Care. 2016.39(Suppl 1). Performed By: #### 2 4320-06, ####[facility] LABORATORYCLIA [id number] [place] [id number] [place] Potassium [Moles/Vol] 4.2 mmol/L Normal 3.7-5.1 [facility] Comment on above: Order Comment: Lenard jesus Type: BLOOD SPECIMENOrdering Facility: [facility] Address: [address] [place] [address] Performed By: #### 2 432-, ####[facility] LABORATORYCLIA [id number] [place] [address] [place] Sodium [Moles/Vol] 142 mmol/L Normal 136-144 [facility] Comment on above: Order Comment: Speci men Type: BLOOD SPECIMENOrdering Facility: [facility] Address: [address] [place] [address] Performed By: #### 2 4321-2, ####[facility]ORATORYCLIA [id number] [place] [address] [place] Urea nitrogen [Mass/Vol] 30 mg/dL High 7-21 [facility] Comment on above: Order Comment: Speci men Type: BLOOD SPECIMENOrdering Facility: [facility] Address: [address] [place], [place] [address] Performed By: #### 2 4321-2, ####[facility] LABORATORYCLIA [id number] [place] [id number] [place] Magnesium SerPl-mCncon 07-13 Magnesium [Mass/Vol] 2.1 mg/dL Normal 1.7-2.3 [facility] Comment on above: Order Comment: Speci men Type: BLOOD SPECIMENOrdering Facility: [facility] Address: [address] [place], [place] [address] Performed By: #### 2 4321-2, ####[facility] LABORATORYCLIA [id number] [place] [address] [place] NURSING PROGon 07-14-2023 NURSING PROG HNO ID: [id number] Author: FLORENTINO REBOLLEDO RN Service: ? Author [...] urine. I/O. call mckeon in reach. Normal [facility] NURSING PROG HNO ID: [id number] Author: MEENA ALFORD RN Service: Nursing Author Type: Registered Nurse Type: Nursing Progress Note Filed: 07/14/2023 11:10 Note Text: Transfer Note: PATIENT NAME: Sandra Schmitz [id number]: Dr. Penaloza, Dr. Silva, and Jose Hill, WILLIAM all visited pt this am and updates given; orders rec'd. Pt's family at bedside. 1055: Patient transferred out to room/unit 3P318/CPPU to [place] [address] in stable condition via wheelchair. Actions taken: Report given/called to CARO Swartz. Pt's family with pt. And took pt belongings. Normal [facility] Basic metabolic 2000 panelon 07-13-2023 Anion gap [Moles/Vol] 9 mmol/L Normal 9-18 [facility] Comment on above: Order Comment: Speci men Type: BLOOD SPECIMENOrdering Facility: [facility] Address: [address] [place] [address] Performed By: #### 2 777-1, 56648-2, 63445-2, 90271-4 ####[facility] LABORATORYCLIA [id number] [place] [address] [place] Calcium [Mass/Vol] 9.3 mg/dL Normal 8.5-10.2 [facility] Comment on above: Order Comment: Speci men Type: BLOOD SPECIMENOrdering Facility: [facility] Address: [address] [place] [address] Performed By: #### 2 777-1, 79435-1, 77539-0, ####[facility] LABORATORYCLIA [id number] [place] [id number] [place] Chloride [Moles/Vol] 102 mmol/L Normal 97-105 [facility] Comment on above: Order Comment: Speci men Type: BLOOD SPECIMENOrdering Facility: [facility] Address: [address] [place] [address] Performed By: #### 2 777-1, 04668-5, 39006-7, ####[facility] LABORATORYCLIA [id number] [place] [id number] [place] CO2 [Moles/Vol] 30 mmol/L Normal 22-30 [facility] Comment on above: Order Comment: Speci men Type: BLOOD SPECIMENOrdering Facility: [facility] Address: [address] [place] [address] Performed By: #### 2 777-1, 59546-6, 45327-8, ####[facility] LABORATORYCLIA [id number] [place] [id number] [place] Creatinine [Mass/Vol] 1.05 mg/dL High 0.58-0.96 [facility] Comment on above: Order Comment: Speci men Type: BLOOD SPECIMENOrdering Facility: [facility] Address: [address] [place] [address] Performed By: #### 2 777-1, 29814-4, 47430-5, ####[facility] LABORATORYCLIA [id number] [place] [id number] [place] Creatinine and Glomerular filtration rate.predicted panel (S/P/Bld) 55 mL/min/1.73m??? Low >=60 [facility] Comment on above: Order Comment: Speci men Type: BLOOD SPECIMENOrdering Facility: [facility] Address: [address] [place] [address] Result Comment: Aaron mated Glomerular Filtration Rate [...] actual GFR. Performed By: #### 2 777-1, 99507-6, 60200-2, ####[facility] LABORATORYCLIA [id number] [place] [id number] [place] Glucose [Mass/Vol] 94 mg/dL Normal 74-99 [facility] Comment on above: Order Comment: Lenard jesus Type: BLOOD SPECIMENOrdering Facility: [facility] Address: [address] [place] [address] Result Comment: The [place] Diabetes Association (ADA) provides guidance for cutoff [...] Standards of Medical Care in Diabetes 2016, [place] [employer]. Diabetes Care. 2016.39(Suppl 1). Performed By: #### 2 777-1, 94992-7, 47506-0, 63847-5 ####[facility] LABORATORYCLIA [id number] [place] [id number] [place] Potassium [Moles/Vol] 4.7 mmol/L Normal 3.7-5.1 [facility] Comment on above: Order Comment: Lenard jesus Type: BLOOD SPECIMENOrdering Facility: [facility] Address: [address] [place] [address] Performed By: #### 2 777-1, 32441-5, 95181-9, 38775-6 ####[facility] LABORATORYCLIA [id number] [place] [address] [place] Sodium [Moles/Vol] 141 mmol/L Normal 136-144 [facility] Comment on above: Order Comment: Speci men Type: BLOOD SPECIMENOrdering Facility: [facility] Address: [address] [place] [address] Performed By: #### 2 777-1, 17749-7, 87048-4, 82212-4 ####[facility] LABORATORYCLIA [id number] [place] [id number] [place] Urea nitrogen [Mass/Vol] 37 mg/dL High 7- [facility] Comment on above: Order Comment: Speci men Type: BLOOD SPECIMENOrdering Facility: [facility] Address: [address] [place] [address] Performed By: #### 2 777-1, 84552-0, 99442-2, 61958-3 ####[facility] LABORATORYCLIA [id number] [place] [id number] [facility] CASE MANAGEMon 07-13-2023 CASE MANAGEM HNO ID: [id number] Author: ALIREZA ROBERTS LSW Service: ASSESSMENT Author Type: Heading Machine Operator Type: Care Mgt Progress Note Filed: 07/13/2023 11:11 Note Text: CARE MANAGEMENT PROGRESS NOTE SERVICE DATE: 07/13/2023 SERVICE TIME: 10:59 AM LOS: 3 days Needs Prior to Discharge: To Be Determined;Bed Availability SW reviewed EMR. Per EMR pt. Is waiting for a bed at [place]. CM will remain available should any further discharge planning needs arise. SIGNATURE: CLARA Luna PATIENT NAME: Sandra Schmitz DATE: July 13, 2023 TIME: 10:58 AM PAGER/CONTACT #: [facility] CBC W Auto Differential pane l (Bld)on 07-13-2023 Basophils (Bld) [#/Vol] 0.07 10*3/uL Normal <0.11 [facility] Comment on above: Order Comment: Speci men Type: BLOOD SPECIMENOrdering Facility: [facility] Address: [address] [place] [address] Performed By: #### 5 7021-8 ####KO LABORATORYCLIA [id number] [place] [address] [place] Basophils/100 WBC (Bld) 0.9 % Normal [facility] Comment on above: Order Comment: Speci men Type: BLOOD SPECIMENOrdering Facility: [facility] Address: [address] [place] [address] Performed By: #### 5 7021-8 ####[facility] LABORATORYCLIA [id number] [place] [address] [place] Differential cell count method Nom (Bld) Auto Normal [facility] Comment on above: Order Comment: Speci men Type: BLOOD SPECIMENOrdering Facility: [facility] Address: [address] [place] [address] Performed By: #### 5 7021-8 ####KO LABORATORYCLIA [id number] [place] [address] [place] Eosinophils (Bld) [#/Vol] 0.23 10*3/uL Normal <0.46 [facility] Comment on above: Order Comment: Speci men Type: BLOOD SPECIMENOrdering Facility: [facility] Address: [address] [place] [address] Performed By: #### 5 7021-8 ####KO LABORATORYCLIA [id number] [place] [address] [place] Eosinophils/100 WBC (Bld) 3.0 % Normal [facility] Comment on above: Order Comment: Speci men Type: BLOOD SPECIMENOrdering Facility: [facility] Address: [address] [place] [address] Performed By: #### 5 7021-8 ####KO LABORATORYCLIA [id number] [place] [address] [place] Erythrocyte distribution width (RBC) [Ratio] 14.7 % Normal 11.5-15.0 [facility] Comment on above: Order Comment: Speci men Type: BLOOD SPECIMENOrdering Facility: [facility] Address: [address] [place] [address] Performed By: #### 5 7021-8 ####KO LABORATORYCLIA [id number] [place] [address] [place] Hematocrit (Bld) [Volume fraction] 37.5 % Normal 36.0-46.0 [facility] Comment on above: Order Comment: Speci men Type: BLOOD SPECIMENOrdering Facility: [facility] Address: [address] [place] [address] Performed By: #### 5 7021-8 ####KO LABORATORYCLIA [id number] [place] [address] [place] Hemoglobin (Bld) [Mass/Vol] 12.0 g/dL Normal 11.5-15.5 [facility] Comment on above: Order Comment: Speci men Type: BLOOD SPECIMENOrdering Facility: [facility] Address: [address] [place] [address] Performed By: #### 5 7021-8 ####KO LABORATORYCLIA [id number] [place] [address] [place] Immature granulocytes (Bld) [#/Vol] 0.04 10*3/uL Normal <0.10 [facility] Comment on above: Order Comment: Speci men Type: BLOOD SPECIMENOrdering Facility: [facility] Address: [address] [place] [address] Performed By: #### 5 7021-8 ####KO LABORATORYCLIA [id number] [place] [address] [place] Immature granulocytes/100 WBC (Bld) 0.5 % Normal [facility] Comment on above: Order Comment: Speci men Type: BLOOD SPECIMENOrdering Facility: [facility] Address: [address] [place] [address] Performed By: #### 5 7021-8 ####KO LABORATORYCLIA [id number] [place] [address] [place] Lymphocytes (Bld) [#/Vol] 2.98 10*3/uL Normal 1.00-4.00 [facility] Comment on above: Order Comment: Speci men Type: BLOOD SPECIMENOrdering Facility: [facility] Address: [address] [place] [address] Performed By: #### 5 7021-8 ####KO LABORATORYCLIA [id number] [address] Lymphocytes/100 WBC (Bld) 39.4 % Normal [facility] Comment on above: Order Comment: Speci men Type: BLOOD SPECIMENOrdering Facility: [facility] Address: [address] [place] [address] Performed By: #### 5 7021-8 ####KO LABORATORYCLIA [id number] [address] MCH (RBC) [Entitic mass] 29.4 pg Normal 26.0-34.0 [facility] Comment on above: Order Comment: Speci men Type: BLOOD SPECIMENOrdering Facility: [facility] Address: [address] [place] [address] Performed By: #### 5 7021-8 ####KO LABORATORYCLIA [id number] [address] MCHC (RBC) [Mass/Vol] 32.0 g/dL Normal 30.5-36.0 [facility] Comment on above: Order Comment: Speci men Type: BLOOD SPECIMENOrdering Facility: [facility] Address: [address] [place] [address] Performed By: #### 5 7021-8 ####KO LABORATORYCLIA [id number] [address] MCV (RBC) [Entitic vol] 91.9 fL Normal 80.0-100.0 [facility] Comment on above: Order Comment: Speci men Type: BLOOD SPECIMENOrdering Facility: [facility] Address: [address] [place] [address] Performed By: #### 5 7021-8 ####KO LABORATORYCLIA [id number] [address] [place] Monocytes (Bld) [#/Vol] 0.72 10*3/uL Normal <0.87 [facility] Comment on above: Order Comment: Speci men Type: BLOOD SPECIMENOrdering Facility: [facility] Address: [address] [place] [address] Performed By: #### 5 7021-8 ####KO LABORATORYCLIA [id number] [place] [address] [place] Monocytes/100 WBC (Bld) 9.5 % Normal [facility] Comment on above: Order Comment: Speci men Type: BLOOD SPECIMENOrdering Facility: [facility] Address: [address] [place] [address] Performed By: #### 5 7021-8 ####KO LABORATORYCLIA [id number] [place] [address] [place] Neutrophils (Bld) [#/Vol] 3.52 10*3/uL Normal 1.45-7.50 [facility] Comment on above: Order Comment: Speci men Type: BLOOD SPECIMENOrdering Facility: [facility] Address: [address] [place] [address] Performed By: #### 5 7021-8 ####KO LABORATORYCLIA [id number] [address] [place] Neutrophils/100 WBC (Bld) 46.7 % Normal [facility] Comment on above: Order Comment: Speci men Type: BLOOD SPECIMENOrdering Facility: [facility] Address: [address] [place] [address] Performed By: #### 5 7021-8 ####KO LABORATORYCLIA [id number] [place] [address] [place] Nucleated RBC (Bld) [#/Vol] 10*3/uL Normal <0.01 [facility] Comment on above: Order Comment: Speci men Type: BLOOD SPECIMENOrdering Facility: [facility] Address: [address] [place] [address] Performed By: #### 5 7021-8 ####KO LABORATORYCLIA [id number] [place] [address] [place] Nucleated RBC/100 WBC (Bld) [Ratio] 0.0 /100 WBC Normal [facility] Comment on above: Order Comment: Speci men Type: BLOOD SPECIMENOrdering Facility: [facility] Address: [facility] [place] [address] Performed By: #### 5 7021-8 ####KO LABORATORYCLIA [id number] [place] [address] [place] Platelet mean volume (Bld) [Entitic vol] 10.1 fL Normal 9.0-12.7 [facility] Comment on above: Order Comment: Speci men Type: BLOOD SPECIMENOrdering Facility: [facility] Address: [address] [place] [address] Performed By: #### 5 7021-8 ####KO LABORATORYCLIA [id number] [place] [address] [place] Platelets (Bld) [#/Vol] 270 10*3/uL Normal 150-400 [facility] Comment on above: Order Comment: Speci men Type: BLOOD SPECIMENOrdering Facility: [facility] Address: [address] [place] [address] Performed By: #### 5 7021-8 ####KO LABORATORYCLIA [id number] [place] [address] [place] RBC (Bld) [#/Vol] 4.08 10*6/uL Normal 3.90-5.20 [facility] Comment on above: Order Comment: Speci men Type: BLOOD SPECIMENOrdering Facility: [facility] Address: [address] [place] [address] [place] [address] Performed By: #### 5 7021-8 ####KO LABORATORYCLIA [id number] [place] [address] [place] WBC (Bld) [#/Vol] 7.56 10*3/uL Normal 3.70-11.00 [facility] Comment on above: Order Comment: Speci men Type: BLOOD SPECIMENOrdering Facility: [facility] Address: [address] [place] [address] Performed By: #### 5 7021-8 ####KO LABORATORYCLIA [id number] [place] [address] [place] CBC panel Auto (Bld)on 07-12 Erythrocyte distribution width (RBC) [Ratio] 14.6 % Normal 11.5-15.0 [facility] Comment on above: Order Comment: Speci men Type: BLOOD SPECIMEN [facility] Address: [address] [place] [address] Performed By: #### 5 8410-2 #### [facility] CLIA [id number] [address] [place] [address] [place] Hematocrit (Bld) [Volume fraction] 41.7 % Normal 36.0-46.0 [facility] Comment on above: Order Comment: Speci men Type: BLOOD SPECIMEN [facility] Address: [address] [place] [address] Performed By: #### 5 8410-2 #### [facility] CLIA [id number] [address] [place] [address] [place] Hemoglobin (Bld) [Mass/Vol] 13.3 g/dL Normal 11.5-15.5 [facility] Comment on above: Order Comment: Speci men Type: BLOOD SPECIMEN [facility] Address: [address] [place] [address] Performed By: #### 5 8410-2 #### [facility] CLIA [id number] [address] [place] [address] [place] MCH (RBC) [Entitic mass] 29.4 pg Normal 26.0-34.0 [facility] Comment on above: Order Comment: Speci men Type: BLOOD SPECIMEN [facility] Address: [address] [place] [address] Performed By: #### 5 8410-2 #### [facility] CLIA [id number] [address] [place] [address] [place] MCHC (RBC) [Mass/Vol] 31.9 g/dL Normal 30.5-36.0 [facility] Comment on above: Order Comment: Speci men Type: BLOOD SPECIMEN [facility] Address: [address] [place] [address] Performed By: #### 5 8410-2 #### [facility] CLIA [id number] [address] [place] [address] [place] MCV (RBC) [Entitic vol] 92.1 fL Normal 80.0-100.0 [facility] Comment on above: Order Comment: Speci men Type: BLOOD SPECIMEN [facility] Address: [address] [place] [address] Performed By: #### 5 8410-2 #### [facility] CLIA [id number] [address] [place] [address] [place] Nucleated RBC (Bld) [#/Vol] 10*3/uL Normal <0.01 [facility] Comment on above: Order Comment: Speci men Type: BLOOD SPECIMEN [facility] Address: [address] [place] [address] Performed By: #### 5 8410-2 #### [facility] CLIA [id number] [address] [place] [address] [place] Platelet mean volume (Bld) [Entitic vol] 10.3 fL Normal 9.0-12.7 [facility] Comment on above: Order Comment: Speci men Type: BLOOD SPECIMEN [facility] Address: [address] [place] [address] Performed By: #### 5 8410-2 #### [facility] CLIA [id number] [address] [place] [address] [place] Platelets (Bld) [#/Vol] 299 10*3/uL Normal 150-400 [facility] Comment on above: Order Comment: Speci men Type: BLOOD SPECIMEN [facility] Address: [address] [place] [address] Performed By: #### 5 8410-2 #### [facility] CLIA [id number] [address] [place] [address] [place] RBC (Bld) [#/Vol] 4.53 10*6/uL Normal 3.90-5.20 [facility] Comment on above: Order Comment: Lenard jesus Type: BLOOD SPECIMEN [facility] Address: [address] [place] [address] Performed By: #### 5 8410-2 #### [facility] CLIA [id number] [address] [place] [address] [place] WBC (Bld) [#/Vol] 8.78 10*3/uL Normal 3.70-11.00 [facility] Comment on above: Order Comment: Lenard men Type: BLOOD SPECIMEN [facility] Address: [address] [place] [address] Performed By: #### 5 8410-2 #### [facility] CLIA [id number] [place], [place] [address] [place] CK SerPl-cCncon 07-13-2023 CK [Catalytic activity/Vol] 51 U/L Normal 42-196 [facility] Comment on above: Order Comment: Lenard jesus Type: BLOOD SPECIMENOrdering Facility: [facility] Address: [address] [place] [address] Performed By: #### 1 9123-9, 19806-9, 2157-6 ####[facility] [id number] [place] [id number] [place] CNDSon 07-13-2023 CNDS HNO ID: [id number] Author: REMINGTON CAI MD Service: Hospital Medicine [...] beta-lorenzo. Unable to schedule pacer defibrillator and [place] and contacted [facility] in August to have Dr. Wellington do [...] pacer defibrillator plan to be done at [place] Disposition: Transfer to [place] on [facility] medicine with consult to Dr. Dilcia [...] Recent Labs (more content not included)... Normal [facility] CNPNon 07-13-2023 CNPN Telephone (FVPRAD) ----- SANDRA SCHMITZ ([id number]) 1945 F [place] Date Time Provider Department 07/13/23 RAHUL BEE During your visit today, we recorded the following information about you: Rahul Bee MD 07/13/2023 7:28 AM Signed Hospital Medicine Transfer Received page for transfer request from [facility] to [facility]: Sandra Schmitz is 77 year old female who presented with non ischemic decompensated heart failure EF 26%. Suspected runs of tachycardia of unclear origin. Being transferred for possible ASSISTANT CENTER MANAGER. Cannot tolerate betablocker. Currently SBP in 100s. No ICD before. Mild CAD. Reason for transfer: Possible ASSISTANT CENTER MANAGER placement Accepted to hospital medicine service at [...] Assessed Reason for Visit: Hospital To Hospital [[id number]] Prescriptions as of 07/13/2023 - metoprolol succinate [...] dysfunction of (more content not included)... Normal [facility] CONSULTon 07-13-2023 CONSULT HNO ID: [id number] Author: BRUNO PENALOZA MD Service: Electrophysiology Author Type: Physician Type: Consults Filed: 07/14/2023 11:43 Note Text: [facility]ARDI[facility]ASCULAR [facility]ICINE CONSULT NOTE Sandra Schmitz [id number] PRIMARY SERVICE: Internal Medicine CONSULTING SERVICE: Cardiovascular Medicine: Electrophysiology DATE OF ADMISSION: 07/13/2023 DATE OF CONSULT: 07/13/2023 REASON FOR CONSULT Consideration for ASSISTANT CENTER MANAGER-D HISTORY OF PRESENT ILLNESS Sandra Schmitz is a 77 year old female, who presented initially to [place] [facility] due to concerns for chest pressure with associated postural lightheadedness and bendopnea. Shew as subsequently admitted for further evaluation and management. She underwent lexiscan which was negative for inducible ischemia and transthoracic echocardiogram demonstrated persistently reduced ejection fraction of <35%. There was difficulty initiating GDMT due to hypotension and bradycardia. Thus [facility] EP was consutled for consideration for inpatient ASSISTANT CENTER MANAGER implantation given her longstanding LBBB, dating back [...] EC tabletTak (more content not included)... Normal [facility] ECG COMPLETEon 07-13-2023 ECG COMPLETE Ventricular Rate : 5 8 BPM Atrial Rate : 58 BPM P-R Interval : 148 ms QRS Duration : 177 ms Q-T Interval : 485 ms QTC Calculation(Bazett) : 477 ms Calculated P [place] : 36 degrees Calculated R [place] : -23 degrees Calculated T [place] : 151 degrees Sinus rhythm Left bundle branch block Confirmed by ROSALIA WARNER MD ([id number]) on 08/23/2023 1:01:19 PM NAME : SANDRA SCHMITZ PID : [id number] : 1945 Gender : Female Race : ORD : [id number] Procedure Date : Jul 13 2023 17:24:10 Edit Date : Aug 23 2023 13:01:20 Diagnosis: Sinus rhythm Left bundle branch block Confirmed by ROSALIA WARNER MD ([id number]) on 08/23/2023 1:01:19 PM Test Reason : Shortness of Breath Location : 400 : FVEKG 3P31 Overread By : ROSALIA WARNER MD Edited By : ROSALIA WARNER MD Referred By : REMINGTON CAI Acquired by : ILDEFONSO SANCHEZ [facility] HISTORY PHYSICALon HISTORY PHYSICAL HNO ID: [id number] Author: LOUISA CAMP DO Service: Hospital Medicine Author Type: Physician Type: H&P Filed: 07/13/2023 18:22 Note Text: Hospital Medicine Admission History and Physical PRIMARY SERVICE: HOSPITAL MEDICINE Days: Page or epic chat me directly Evenings: Page hospital medicine pager [phone] PATIENT NAME: Sandra Schmitz DATE of SERVICE: July 13, 2023 TIME of SERVICE: 3:14 PM PCP: Mandeep Houser CODE STATUS: No Order ASSESSMENT/PLAN SUMMARY: 77yo female PMH HFrEF, LBBB, hypothyroidism, initially admitted to [place] for acute on chronic HFrEF. She was stabilized with IV diuresis however course complicated by hypotension and bradycardia. She was transferred to [facility] for biventricular pacer defibrillator placement Acute [...] fibrillation. She has seen Dr. Greenfield the toddler lead teacher. She is to be scheduled for pacer [...] tried to get the procedure scheduled in [place] but they had no openings and Dr. Castro was able to contact Dr. Wellington and patient will be transferred to [facility] on hospital medicine service for her biventricular [...] and is agreeable to current plan. Normal [facility] Magnesium [facility] 07-12 Magnesium [Mass/Vol] 2.1 mg/dL Normal 1.7-2.3 [facility] Comment on above: Order Comment: Speci men Type: BLOOD SPECIMENOrdering Facility: [facility] Address: [address] [place] [address] Performed By: #### 2 777-1, 98955-0, 57268-0, 97112-9 ####[facility] LABORATORYCLIA [id number] [address] [place] Magnesium [Mass/Vol] 2.1 mg/dL Normal 1.7-2.3 [facility] Comment on above: Order Comment: Speci men Type: BLOOD SPECIMENOrdering Facility: [facility] Address: [address] [place] [address] Performed By: #### 1 9123-9, 60387-0, 215-6 ####[facility] LABORATORYCLIA [id number] [place] [address] [place] NT-proBNP [facility]12 Natriuretic peptide.B prohormone N-Terminal [Mass/Vol] 2522 pg/mL High <450 [facility] Comment on above: Order Comment: Speci men Type: BLOOD SPECIMENOrdering Facility: [facility] Address: [address] [place] [address] Performed By: #### 2 777-1, 72332-2, 75705-6, 70211-1 ####[facility] LABORATORYCLIA [id number] [place] [id number] [facility] NURSING PROGon 07-13-2023 NURSING PROG HNO ID: [id number] Author: MARY LOU CRUZ RN Service: Nursing Author Type: Registered Nurse Type: Nursing Progress Note Filed: 07/13/2023 16:48 Note Text: 1425 Pt arrived to unit with transport from [facility] in stable condition. Tele SR on monitor. Pt oriented to unit and plan of care 1600 Dr. Camp into see pt. Attempting to wean O2 at this time [facility] NURSING PROG HNO ID: [id number] Author: MISTY ASCENCIO, RN Service: Nursing Author Type: Registered Nurse Type: Nursing Progress Note Filed: 07/13/2023 11:31 Note Text: PATIENT EDUCATION HEART FAILURE PATIENT NAME: Sandra Schmitz PATIENT LOCATION: [place] [id number] SURVIVAL SKILLS: Low Sodium Diet Weight Monitoring and Dry Weight Importance of Follow Up after Discharge Fluid Restriction, if applicable Heart Failure Medications Symptom Management related to heart failure Activity / Physical Exercise Recommendations Smoking cessation counseling if applicable When Patient Should Call Provider Follow up visit for CHF education. Survival Skills revieved. No questions @ this time. Awaiting transfer to [facility]. Electronically Signed By: Misty Ascencio [facility] Phosphate SerPl-ncon 07-12 Phosphate [Mass/Vol] 3.1 mg/dL Normal 2.7-4.8 [facility] Comment on above: Order Comment: Speci men Type: BLOOD SPECIMENOrdering Facility: [facility] Address: [address] [place] [address] Performed By: #### 2 777-1, 83987-5, 87026-2, ####[facility] LABORATORYCLIA [id number] [place] [id number] [place] Renal function 2000 panelon 07-13-2023 Albumin [Mass/Vol] 3.8 g/dL Low 3.9-4.9 [facility] Comment on above: Order Comment: Speci men Type: BLOOD SPECIMENOrdering Facility: [facility] Address: [address] [place] [address] Performed By: #### 1 9123-9, 91241-6, 2156-10 ####[facility] LABORATORYCLIA [id number] [place] [address] [place] Anion gap [Moles/Vol] 9 mmol/L Normal 9-18 [facility] Comment on above: Order Comment: Speci men Type: BLOOD SPECIMENOrdering Facility: [facility] Address: [address] [place] [address] Performed By: #### 1 9123-9, , 2156-10 ####[facility] LABORATORYCLIA [id number] [place] [address] [place] Calcium [Mass/Vol] 9.1 mg/dL Normal 8.5-10.2 [facility] Comment on above: Order Comment: Speci men Type: BLOOD SPECIMENOrdering Facility: [facility] Address: [address] [place] [address] Performed By: #### 1 9123-9, , 2156-10 ####[facility] LABORATORYCLIA [id number] [place] [address] [place] Chloride [Moles/Vol] 103 mmol/L Normal 97-105 [facility] Comment on above: Order Comment: Speci men Type: BLOOD SPECIMENOrdering Facility: [facility] Address: [address] [place] [address] Performed By: #### 1 9123-9, 50904-3, 2156-10 ####[facility] LABORATORYCLIA [id number] [place] [address] [place] CO2 [Moles/Vol] 31 mmol/L High 22-30 [facility] Comment on above: Order Comment: Leanrd jesus Type: BLOOD SPECIMENOrdering Facility: [facility] Address: [address] [place] [address] Performed By: #### 1 9123-9, 49823-0, 2156-10 ####[facility] LABORATORYCLIA [id number] [place] [id number] [place] Creatinine [Mass/Vol] 1.02 mg/dL High 0.58-0.96 [facility] Comment on above: Order Comment: Lenard jesus Type: BLOOD SPECIMENOrdering Facility: [facility] Address: [address] [place] [address] Performed By: #### 1 9123-9, , 2156-10 ####[facility] LABORATORYCLIA [id number] [place] [id number] [place] Creatinine and Glomerular filtration rate.predicted panel (S/P/Bld) 57 mL/min/1.73m??? Low >=60 [facility] Comment on above: Order Comment: [facility] Type: BLOOD SPECIMENOrdering Facility: [facility] Address: [address] [place] [address] Result Comment: Aaron mated Glomerular Filtration Rate [...] actual GFR. Performed By: #### 1 9123-9, 07224-6, 2156-10 ####[facility] LABORATORYCLIA [id number] [place] [address] [place] Glucose [Mass/Vol] 91 mg/dL Normal 74-99 [facility] Comment on above: Order Comment: [facility] Type: BLOOD SPECIMENOrdering Facility: [facility] Address: [address] [place] [address] Result Comment: The [place] Diabetes Association (ADA) provides guidance for cutoff [...] Standards of Medical Care in Diabetes 2016, [place] [employer]. Diabetes Care. 2016.39(Suppl 1). Performed By: #### 1 9123-9, , 2156-10 ####[facility] LABORATORYCLIA [id number] [place] [address] [place] Phosphate [Mass/Vol] 3.2 mg/dL Normal 2.7-4.8 [facility] Comment on above: Order Comment: Lenard jesus Type: BLOOD SPECIMENOrdering Facility: [facility] Address: [address] [place] [address] Performed By: #### 1 9123-9, , 2156-10 ####[facility] LABORATORYCLIA [id number] [place] [address] [place] Potassium [Moles/Vol] 4.3 mmol/L Normal 3.7-5.1 [facility] Comment on above: Order Comment: Lenard jesus Type: BLOOD SPECIMENOrdering Facility: [facility] Address: [address] [place] [address] Performed By: #### 1 9123-9, , 2156-10 ####[facility] LABORATORYCLIA [id number] [place] [id number] [place] Sodium [Moles/Vol] 143 mmol/L Normal 136-144 [facility] Comment on above: Order Comment: Lenard jesus Type: BLOOD SPECIMENOrdering Facility: [facility] Address: [address] [place] [address] Performed By: #### 1 9123-9, , 2156-10 ####KO LABORATORYCLIA [id number] [place] [id number] [place] Urea nitrogen [Mass/Vol] 33 mg/dL High 7- [facility] Comment on above: Order Comment: Speci edin Type: BLOOD SPECIMENOrdering Facility: [facility] Address: [address] [place] [address] Performed By: #### 1 9123-9, 85190-9, 2157-6 ####[facility] LABORATORYCLIA [id number] [place] [id number] [place] XR CHEST 2V [...] is unremarkable. IMPRESSION: No acute cardiopulmonary process. Night Clerk: PSCB Transcribe Date/Time: Jul 13 2023 5:02P Dictated by : LILI MARSH MD This examination was interpreted and the report reviewed and electronically signed by: LILI MARSH MD on Jul 13 2023 5:03PM EST [id number] Normal [facility] CBC W Auto Differential pane l (Bld)on 07-12-2023 Basophils (Bld) [#/Vol] 0.08 10*3/uL Normal <0.11 [facility] Comment on above: Order Comment: Speci edin Type: BLOOD SPECIMENOrdering Facility: [facility] Address: [address] [place] [address] Performed By: #### 5 7021-8 ####[facility] LABORATORYCLIA [id number] [place] [id number] [place] Basophils/100 WBC (Bld) 1.0 % Normal [facility] Comment on above: Order Comment: Speci men Type: BLOOD SPECIMENOrdering Facility: [facility] Address: [address] [place] [address] Performed By: #### 5 7021-8 ####[facility] LABORATORYCLIA [id number] [address] [place] Differential cell count method Nom (Bld) Auto Normal [facility] Comment on above: Order Comment: Speci men Type: BLOOD SPECIMENOrdering Facility: [facility] Address: [address] [place] [address] Performed By: #### 5 7021-8 ####[facility] LABORATORYCLIA [id number] [place] [address] [place] Eosinophils (Bld) [#/Vol] 0.27 10*3/uL Normal <0.46 [facility] Comment on above: Order Comment: Speci men Type: BLOOD SPECIMENOrdering Facility: [facility] Address: [address] [place] [address] Performed By: #### 5 7021-8 ####[facility] LABORATORYCLIA [id number] [address] [place] Eosinophils/100 WBC (Bld) 3.5 % Normal [facility] Comment on above: Order Comment: Speci men Type: BLOOD SPECIMENOrdering Facility: [facility] Address: [address] [place] [address] Performed By: #### 5 7021-8 ####[facility] LABORATORYCLIA [id number] [address] [place] Erythrocyte distribution width (RBC) [Ratio] 14.8 % Normal 11.5-15.0 [facility] Comment on above: Order Comment: Speci men Type: BLOOD SPECIMENOrdering Facility: [facility] Address: [address] [place] [address] Performed By: #### 5 7021-8 ####KO LABORATORYCLIA [id number] [address] [place] Hematocrit (Bld) [Volume fraction] 38.9 % Normal 36.0-46.0 [facility] Comment on above: Order Comment: Speci men Type: BLOOD SPECIMENOrdering Facility: [facility] Address: [address] [place] [address] Performed By: #### 5 7021-8 ####KO LABORATORYCLIA [id number] [place] [address] [place] Hemoglobin (Bld) [Mass/Vol] 12.2 g/dL Normal 11.5-15.5 [facility] Comment on above: Order Comment: Speci men Type: BLOOD SPECIMENOrdering Facility: [facility] Address: [address] [place] [address] Performed By: #### 5 7021-8 ####[facility] LABORATORYCLIA [id number] [place] [address] [place] Immature granulocytes (Bld) [#/Vol] 0.03 10*3/uL Normal <0.10 [facility] Comment on above: Order Comment: Speci men Type: BLOOD SPECIMENOrdering Facility: [facility] Address: [address] [place] [address] Performed By: #### 5 7021-8 ####[facility] LABORATORYCLIA [id number] [place] [address] [place] Immature granulocytes/100 WBC (Bld) 0.4 % Normal [facility] Comment on above: Order Comment: Speci men Type: BLOOD SPECIMENOrdering Facility: [facility] Address: [address] [place] [address] Performed By: #### 5 7021-8 ####KO LABORATORYCLIA [id number] [place] [address] [place] Lymphocytes (Bld) [#/Vol] 2.73 10*3/uL Normal 1.00-4.00 [facility] Comment on above: Order Comment: Speci men Type: BLOOD SPECIMENOrdering Facility: [facility] Address: [address] [place] [address] Performed By: #### 5 7021-8 ####[facility] LABORATORYCLIA [id number] [address] [place] Lymphocytes/100 WBC (Bld) 35.5 % Normal [facility] Comment on above: Order Comment: Speci men Type: BLOOD SPECIMENOrdering Facility: [facility] Address: [address] [place] [address] Performed By: #### 5 7021-8 ####KO LABORATORYCLIA [id number] [place] [address] [place] MCH (RBC) [Entitic mass] 28.8 pg Normal 26.0-34.0 [facility] Comment on above: Order Comment: Speci men Type: BLOOD SPECIMENOrdering Facility: [facility] Address: [address] [place] [address] Performed By: #### 5 7021-8 ####[facility] LABORATORYCLIA [id number] [place] [address] [place] MCHC (RBC) [Mass/Vol] 31.4 g/dL Normal 30.5-36.0 [facility] Comment on above: Order Comment: Speci men Type: BLOOD SPECIMENOrdering Facility: [facility] Address: [address] [place] [address] Performed By: #### 5 7021-8 ####[facility] LABORATORYCLIA [id number] [address] [place] MCV (RBC) [Entitic vol] 92.0 fL Normal 80.0-100.0 [facility] Comment on above: Order Comment: Speci men Type: BLOOD SPECIMENOrdering Facility: [facility] Address: [address] [place] [address] Performed By: #### 5 7021-8 ####KO LABORATORYCLIA [id number] [place] [address] [place] Monocytes (Bld) [#/Vol] 0.76 10*3/uL Normal <0.87 [facility] Comment on above: Order Comment: Speci men Type: BLOOD SPECIMENOrdering Facility: [facility] Address: [address] [place] [address] Performed By: #### 5 7021-8 ####[facility] LABORATORYCLIA [id number] [address] [place] Monocytes/100 WBC (Bld) 9.9 % Normal [facility] Comment on above: Order Comment: Speci men Type: BLOOD SPECIMENOrdering Facility: [facility] Address: [address] [place] [address] Performed By: #### 5 7021-8 ####KO LABORATORYCLIA [id number] [place] [address] [place] Neutrophils (Bld) [#/Vol] 3.82 10*3/uL Normal 1.45-7.50 [facility] Comment on above: Order Comment: Speci men Type: BLOOD SPECIMENOrdering Facility: [facility] Address: [address] [place] [address] Performed By: #### 5 7021-8 ####KO LABORATORYCLIA [id number] [place] [address] [place] Neutrophils/100 WBC (Bld) 49.7 % Normal [facility] Comment on above: Order Comment: Speci men Type: BLOOD SPECIMENOrdering Facility: [facility] Address: [address] [place] [address] Performed By: #### 5 7021-8 ####KO LABORATORYCLIA [id number] [place] [address] [place] Nucleated RBC (Bld) [#/Vol] 10*3/uL Normal <0.01 [facility] Comment on above: Order Comment: Speci men Type: BLOOD SPECIMENOrdering Facility: [facility] Address: [address] [place] [address] Performed By: #### 5 7021-8 ####KO LABORATORYCLIA [id number] [place] [address] [place] Nucleated RBC/100 WBC (Bld) [Ratio] 0.0 /100 WBC Normal [facility] Comment on above: Order Comment: Speci men Type: BLOOD SPECIMENOrdering Facility: [facility] Address: [address] [place] [address] Performed By: #### 5 7021-8 ####KO LABORATORYCLIA [id number] [place] [address] [place] Platelet mean volume (Bld) [Entitic vol] 10.2 fL Normal 9.0-12.7 [facility] Comment on above: Order Comment: Speci men Type: BLOOD SPECIMENOrdering Facility: [facility] Address: [address] [place] [address] Performed By: #### 5 7021-8 ####KO LABORATORYCLIA [id number] [address] Platelets (Bld) [#/Vol] 273 10*3/uL Normal 150-400 [facility] Comment on above: Order Comment: Speci men Type: BLOOD SPECIMENOrdering Facility: [facility] Address: [address] [place] [address] Performed By: #### 5 7021-8 ####KO LABORATORYCLIA [id number] [address] [place] RBC (Bld) [#/Vol] 4.23 10*6/uL Normal 3.90-5.20 [facility] Comment on above: Order Comment: Speci men Type: BLOOD SPECIMENOrdering Facility: [facility] Address: [address] [place] [address] Performed By: #### 5 7021-8 ####KO LABORATORYCLIA [id number] [address] WBC (Bld) [#/Vol] 7.69 10*3/uL Normal 3.70-11.00 [facility] Comment on above: Order Comment: Speci men Type: BLOOD SPECIMENOrdering Facility: [facility] Address: [address] [place] [address] Performed By: #### 5 7021-8 ####KO LABORATORYCLIA [id number] [address] [place] CK SerPl-cCncon 07-12-2023 CK [Catalytic activity/Vol] 51 U/L Normal 42-196 [facility] Comment on above: Order Comment: Speci men Type: BLOOD SPECIMENOrdering Facility: [facility] Address: [address] [place] [address] Performed By: #### 2 157-6, 60165-1, 51332-5 ####KO LABORATORYCLIA [id number] [address] [place] ECHOon 07-12-2023 Echocardiography Echocardiography Rep ort: Transthoracic Echo [facility] Date of service: 07/12/2023 11:47:34 AM Ordering physician: ÁLVARO LOBO Indication: Chest Pain Symptom(s): Chest Pain and Shortness of breath Technologist: Jimena George [facility] Interpreting physician: Cony Almonte MD PATIENT: [...] motion abnormaliti (more content not included)... Normal [facility] Magnesium SerPl-ncon Magnesium [Mass/Vol] 2.1 mg/dL Normal 1.7-2.3 [facility] Comment on above: Order Comment: Speci men Type: BLOOD SPECIMENOrdering Facility: [facility] Address: [address] [place], [place] [address] Performed By: #### 2 157-6, 46633-5, ####[facility] LABORATORYCLIA [id number] [place] [address] [place] Renal function [address] [place] [address] 07-12-2023 Albumin [Mass/Vol] 3.6 g/dL Low 3.9-4.9 [facility] Comment on above: Order Comment: Speci men Type: BLOOD SPECIMENOrdering Facility: [facility] Address: [address] [place], [place] [address] Performed By: #### 2 157-6, 43608-4, ####[facility] LABORATORYCLIA [id number] [place] [address] [place] Anion gap [Moles/Vol] 8 mmol/L Low 9-18 [facility] Comment on above: Order Comment: Speci men Type: BLOOD SPECIMENOrdering Facility: [facility] Address: [address] [place] [id number] Performed By: #### 2 157-6, 71742-3, ####[facility] LABORATORYCLIA [id number] [place] [id number] [place] Calcium [Mass/Vol] 8.8 mg/dL Normal 8.5-10.2 [facility] Comment on above: Order Comment: Speci men Type: BLOOD SPECIMENOrdering Facility: [facility] Address: [address] [place] [address] Performed By: #### 2 157-6, 08902-7, 45767-3 ####KO LABORATORYCLIA [id number] [place] [address] [place] Chloride [Moles/Vol] 103 mmol/L Normal 97-105 [facility] Comment on above: Order Comment: Speci men Type: BLOOD SPECIMENOrdering Facility: [facility] Address: [address] [place] [address] Performed By: #### 2 157-6, 44096-6, 95192-7 ####KO LABORATORYCLIA [id number] [place] [id number] [place] CO2 [Moles/Vol] 28 mmol/L Normal 22-30 [facility] Comment on above: Order Comment: Speci men Type: BLOOD SPECIMENOrdering Facility: [facility] Address: [address] [place] [address] Performed By: #### 2 157-6, 45858-2, ####KO LABORATORYCLIA [id number] [place] [address] [place] Creatinine [Mass/Vol] 0.95 mg/dL Normal 0.58-0.96 [facility] Comment on above: Order Comment: Speci men Type: BLOOD SPECIMENOrdering Facility: [facility] Address: [address] [place] [address] Performed By: #### 2 157-6, 05959-2, 09350-4 ####KO LABORATORYCLIA [id number] [address] [place] Creatinine and Glomerular filtration rate.predicted panel (S/P/Bld) 62 mL/min/1.73m??? Normal >=60 [facility] Comment on above: Order Comment: Speci men Type: BLOOD SPECIMENOrdering Facility: [facility] Address: [address] [place] [address] Result Comment: Aaron mated Glomerular Filtration Rate [...] actual GFR. Performed By: #### 2 157-6, 36321-9, ####[facility] LABORATORYCLIA [id number] [place] [address] [place] Glucose [Mass/Vol] 89 mg/dL Normal 74-99 [facility] Comment on above: Order Comment: Lenard jesus Type: BLOOD SPECIMENOrdering Facility: [facility] Address: [address] [place], [place] [address] Result Comment: The [place] Diabetes Association (ADA) provides guidance for cutoff [...] Standards of Medical Care in Diabetes 2016, [place] [employer]. Diabetes Care. 2016.39(Suppl 1). Performed By: #### 2 157-6, 07245-3, ####[facility] LABORATORYCLIA [id number] [place] [address] [place] Phosphate [Mass/Vol] 3.7 mg/dL Normal 2.7-4.8 [facility] Comment on above: Order Comment: Lenard jesus Type: BLOOD SPECIMENOrdering Facility: [facility] Address: [address] [place] [address] Performed By: #### 2 157-6, 80621-9, ####[facility] LABORATORYCLIA [id number] [place] [address] [place] Potassium [Moles/Vol] 3.8 mmol/L Normal 3.7-5.1 [facility] Comment on above: Order Comment: Speci men Type: BLOOD SPECIMENOrdering Facility: [facility] Address: [address] [place], [place] [address] Performed By: #### 2 157-6, 38920-7, 03555-8 ####KO LABORATORYCLIA [id number] [place] [address] [facility] [place] Sodium [Moles/Vol] 139 mmol/L Normal 136-144 [facility] Comment on above: Order Comment: Speci men Type: BLOOD SPECIMENOrdering Facility: [facility] Address: [address] [place] [address] Performed By: #### 2 157-6, 40639-6, 86487-3 ####KO LABORATORYCLIA [id number] [place] [address] [place] Urea nitrogen [Mass/Vol] 34 mg/dL High 7-21 [facility] Comment on above: Order Comment: Speci men Type: BLOOD SPECIMENOrdering Facility: [facility] Address: [address] [place] [address] Performed By: #### 2 157-6, 45766-5, 73184-8 ####KO LABORATORYCLIA [id number] [place] [id number] [facility] ALLIED HEALTHon 07-11-2023 ALLIED HEALTH HNO ID: [id number] Author: DEJAN HERNANDEZ RT(R) Service: Nuclear Medicine [...] PATIENT PRESENTS WITH AN IMPLANTABLE OR ATTACHED FOOD TECHNOLOGIST: No CREATININE: Creatinine Date Value Ref Range [...] documentation PROCEDURE TYPE: NM Stress: 13.89 mCi Mt38j-Uswlnwi was administered IV for Rest Imaging at 09:05 by [facility]. 35.4 mCi De75d-Soshixo was administered IV for Stress Imaging at 09:50 by [facility]. PATIENT DISCHARGED TO: Floor A Diagnostic radioactive procedure has taken place, with no further precautions necessary other than routine body substance precautions. More information regarding radiation safety can be found using this link: [email or web address]%[email or web address]%20 [email or web address] SIGNATURE: RT Kevin(R) PATIENT NAME: Sandra Schmitz DATE: July 11, 2023 TIME: 10:09 AM PAGER/CONTACT #: [facility] CASE MGT INIT Alicia 2023 CASE MGT INIT TOMASA HNO ID: [id number] Author: LUX AREVALO LISW Service: ? Author Type: Heading Machine Operator Type: Care Mgt Initial Assessment Filed: [...] Current Advance Directive: Health Care Power of Rock Breaker Current Living Arrangements and Support Lives with: [...] home, General wellness, Ambulate a little better [place] of Choice Explained: Are you interested in [...] 11, 2023 TIME: 11:24 AM CONTACT #: [phone] [facility] CBC W Auto Differential pane l (Bld)on 07-11-2023 Basophils (Bld) [#/Vol] 0.07 10*3/uL Normal <0.11 [facility] Comment on above: Order Comment: Speci men Type: BLOOD SPECIMENOrdering Facility: [facility] Address: [address] [place] [address] Performed By: #### 5 7021-8 ####KO LABORATORYCLIA [id number] [place] [address] [place] Basophils/100 WBC (Bld) 1.0 % Normal [facility] Comment on above: Order Comment: Speci men Type: BLOOD SPECIMENOrdering Facility: [facility] Address: [address] [place] [address] Performed By: #### 5 7021-8 ####KO LABORATORYCLIA [id number] [address] Differential cell count method Nom (Bld) Auto Normal [facility] Comment on above: Order Comment: Speci men Type: BLOOD SPECIMENOrdering Facility: [facility] Address: [address] [place] [address] Performed By: #### 5 7021-8 ####KO LABORATORYCLIA [id number] [place] [address] [place] Eosinophils (Bld) [#/Vol] 0.21 10*3/uL Normal <0.46 [facility] Comment on above: Order Comment: Speci men Type: BLOOD SPECIMENOrdering Facility: [facility] Address: [address] [place] [address] Performed By: #### 5 7021-8 ####KO LABORATORYCLIA [id number] [address] Eosinophils/100 WBC (Bld) 3.0 % Normal [facility] Comment on above: Order Comment: Speci men Type: BLOOD SPECIMENOrdering Facility: [facility] Address: [address] [place] [address] Performed By: #### 5 7021-8 ####KO LABORATORYCLIA [id number] [address] [place] Erythrocyte distribution width (RBC) [Ratio] 14.9 % Normal 11.5-15.0 [facility] Comment on above: Order Comment: Speci men Type: BLOOD SPECIMENOrdering Facility: [facility] Address: [address] [place] [address] Performed By: #### 5 7021-8 ####KO LABORATORYCLIA [id number] [address] [place] Hematocrit (Bld) [Volume fraction] 39.7 % Normal 36.0-46.0 [facility] Comment on above: Order Comment: Speci men Type: BLOOD SPECIMENOrdering Facility: [facility] Address: [address] [place] [address] Performed By: #### 5 7021-8 ####KO LABORATORYCLIA [id number] [address] [place] Hemoglobin (Bld) [Mass/Vol] 12.3 g/dL Normal 11.5-15.5 [facility] Comment on above: Order Comment: Speci men Type: BLOOD SPECIMENOrdering Facility: [facility] Address: [address] [place] [address] Performed By: #### 5 7021-8 ####KO LABORATORYCLIA [id number] [place] [address] [place] Immature granulocytes (Bld) [#/Vol] 0.03 10*3/uL Normal <0.10 [facility] Comment on above: Order Comment: Speci men Type: BLOOD SPECIMENOrdering Facility: [facility] Address: [address] [place] [address] Performed By: #### 5 7021-8 ####KO LABORATORYCLIA [id number] [address] [place] Immature granulocytes/100 WBC (Bld) 0.4 % Normal [facility] Comment on above: Order Comment: Speci men Type: BLOOD SPECIMENOrdering Facility: [facility] Address: [address] [place] [address] Performed By: #### 5 7021-8 ####KO LABORATORYCLIA [id number] [address] Lymphocytes (Bld) [#/Vol] 2.77 10*3/uL Normal 1.00-4.00 [facility] Comment on above: Order Comment: Speci men Type: BLOOD SPECIMENOrdering Facility: [facility] Address: [address] [place] [address] Performed By: #### 5 7021-8 ####KO LABORATORYCLIA [id number] [address] Lymphocytes/100 WBC (Bld) 39.9 % Normal [facility] Comment on above: Order Comment: Speci men Type: BLOOD SPECIMENOrdering Facility: [facility] Address: [address] [place] [address] Performed By: #### 5 7021-8 ####KO LABORATORYCLIA [id number] [address] MCH (RBC) [Entitic mass] 28.2 pg Normal 26.0-34.0 [facility] Comment on above: Order Comment: Speci men Type: BLOOD SPECIMENOrdering Facility: [facility] Address: [address] [place] [address] Performed By: #### 5 7021-8 ####KO LABORATORYCLIA [id number] [address] [place] [facility] MCHC (RBC) [Mass/Vol] 31.0 g/dL Normal 30.5-36.0 [facility] Comment on above: Order Comment: Speci men Type: BLOOD SPECIMENOrdering Facility: [facility] Address: [address] [place] [address] Performed By: #### 5 7021-8 ####KO LABORATORYCLIA [id number] [address] MCV (RBC) [Entitic vol] 91.1 fL Normal 80.0-100.0 [facility] Comment on above: Order Comment: Speci men Type: BLOOD SPECIMENOrdering Facility: [facility] Address: [address] [place] [address] Performed By: #### 5 7021-8 ####KO LABORATORYCLIA [id number] [place] [address] [place] Monocytes (Bld) [#/Vol] 0.60 10*3/uL Normal <0.87 [facility] Comment on above: Order Comment: Speci men Type: BLOOD SPECIMENOrdering Facility: [facility] Address: [address] [place] [address] Performed By: #### 5 7021-8 ####KO LABORATORYCLIA [id number] [place] [address] [place] Monocytes/100 WBC (Bld) 8.6 % Normal [facility] Comment on above: Order Comment: Speci men Type: BLOOD SPECIMENOrdering Facility: [facility] Address: [address] [place] [address] Performed By: #### 5 7021-8 ####KO LABORATORYCLIA [id number] [place] [address] [place] Neutrophils (Bld) [#/Vol] 3.26 10*3/uL Normal 1.45-7.50 [facility] Comment on above: Order Comment: Speci men Type: BLOOD SPECIMENOrdering Facility: [facility] Address: [address] [place] [address] Performed By: #### 5 7021-8 ####KO LABORATORYCLIA [id number] [place] [address] [place] Neutrophils/100 WBC (Bld) 47.1 % Normal [facility] Comment on above: Order Comment: Speci men Type: BLOOD SPECIMENOrdering Facility: [facility] Address: [address] [place] [address] Performed By: #### 5 7021-8 ####KO LABORATORYCLIA [id number] [place] [address] [place] Nucleated RBC (Bld) [#/Vol] 10*3/uL Normal <0.01 [facility] Comment on above: Order Comment: Speci men Type: BLOOD SPECIMENOrdering Facility: [facility] Address: [address] [place] [address] Performed By: #### 5 7021-8 ####KO LABORATORYCLIA [id number] [place] [address] [place] Nucleated RBC/100 WBC (Bld) [Ratio] 0.0 /100 WBC Normal [facility] Comment on above: Order Comment: Speci men Type: BLOOD SPECIMENOrdering Facility: [facility] Address: [address] [place] [address] Performed By: #### 5 7021-8 ####KO LABORATORYCLIA [id number] [place] [address] [place] Platelet mean volume (Bld) [Entitic vol] 10.2 fL Normal 9.0-12.7 [facility] Comment on above: Order Comment: Speci men Type: BLOOD SPECIMENOrdering Facility: [facility] Address: [address] [place] [address] Performed By: #### 5 7021-8 ####KO LABORATORYCLIA [id number] [place] [address] [place] Platelets (Bld) [#/Vol] 290 10*3/uL Normal 150-400 [facility] Comment on above: Order Comment: Speci men Type: BLOOD SPECIMENOrdering Facility: [facility] Address: [address] [place] [address] Performed By: #### 5 7021-8 ####KO LABORATORYCLIA [id number] [place] [address] [place] RBC (Bld) [#/Vol] 4.36 10*6/uL Normal 3.90-5.20 [facility] Comment on above: Order Comment: Speci men Type: BLOOD SPECIMENOrdering Facility: [facility] Address: [address] [place] [address] Performed By: #### 5 7021-8 ####KO LABORATORYCLIA [id number] [place] [address] [place] WBC (Bld) [#/Vol] 6.94 10*3/uL Normal 3.70-11.00 [facility] Comment on above: Order Comment: Speci men Type: BLOOD SPECIMENOrdering Facility: [facility] Address: [address] [place] [address] Performed By: #### 5 7021-8 ####[facility] LABORATORYCLIA [id number] [place] [address] [place] CK SerPl-cCncon 07-11-2023 CK [Catalytic activity/Vol] 49 U/L Normal 42-196 [facility] Comment on above: Order Comment: Speci men Type: BLOOD SPECIMENOrdering Facility: [facility] Address: [address] [place] [address] Performed By: #### 2 4362-6, 6, ####[facility] LABORATORYCLIA [id number] [place] [address] [place] Magnesium SerPl-mCncon 07-11 Magnesium [Mass/Vol] 2.0 mg/dL Normal 1.7-2.3 [facility] Comment on above: Order Comment: Speci men Type: BLOOD SPECIMENOrdering Facility: [facility] Address: [address] [place] [address] Performed By: #### 2 4362-6, 2156-10, ####[facility] LABORATORYCLIA [id number] [place] [address] [place] NM CARDIAC PERF STRESS/PHARM on 07-11-2023 NM CARDIAC PERF STRESS/PHARM * * *Final Report* * * DATE OF EXAM: Jul 11 2023 10:57AM SKIP 0006 - NM CARDIAC PERF STRESS/PHARM / PROCEDURE REASON: Chest pain/anginal equiv, intermediate CAD risk, not treadmill candidate * * * * Physician Interpretation * * * * Stress Sole Edge Inker Machine Report: [facility] Date of service: 07/11/2023 9:15:02 AM [...] later. See administered radiotracer and doses below. [facility] Date of service: 07/11/2023 9:15:02 AM [...] Final * * * Stress ECG Report: [facility] Date of service: 07/11/2023 9:15:02 AM Ordering physician: ÁLVARO LOBO copy center specialist: Oumou Piña Machine Milker: Valery Sung Interpreting physician: Álvaro Lobo MD [...] 101 42 (more content not included)... Normal [facility] NURSING PROGon 07-11-2023 NURSING PROG HNO ID: [id number] Author: MISTY ASCENCIO, RN Service: Nursing Author Type: Registered Nurse Type: Nursing Progress Note Filed: 07/11/2023 14:37 Note Text: PATIENT EDUCATION HEART FAILURE PATIENT NAME: Sandra Schmitz PATIENT LOCATION: [place] [id number] SURVIVAL SKILLS: Low Sodium Diet Weight Monitoring [...] EF @ 29%. Follow Dr Oneill from [place]. Brief overview of CHF, s/s and management [...] Cardiology Electronically Signed By: Misty Ascencio Normal [facility] Renal function 2000 panelon 07-11-2023 Albumin [Mass/Vol] 3.6 g/dL Low 3.9-4.9 [facility] Comment on above: Order Comment: Ernestinei men Type: BLOOD SPECIMENOrdering Facility: [facility] Address: [address] [place] [address] Performed By: #### 2 4362-6, 2156-10, ####[facility] LABORATORYCLIA [id number] [place] [id number] [place] Anion gap [Moles/Vol] 9 mmol/L Normal 9-18 [facility] Comment on above: Order Comment: Speci men Type: BLOOD SPECIMENOrdering Facility: [facility] Address: [address] [place] [address] Performed By: #### 2 4362-6, 2156-10, ####[facility] LABORATORYCLIA [id number] [place] [address] [place] Calcium [Mass/Vol] 9.2 mg/dL Normal 8.5-10.2 [facility] Comment on above: Order Comment: Speci men Type: BLOOD SPECIMENOrdering Facility: [facility] Address: [address] [place] [id number] Performed By: #### 2 4362-6, 2156-10, ####KO LABORATORYCLIA [id number] [place] [address] [place] Chloride [Moles/Vol] 103 mmol/L Normal 97-105 [facility] Comment on above: Order Comment: Speci men Type: BLOOD SPECIMENOrdering Facility: [facility] Address: [address] [place] [address] Performed By: #### 2 4362-6, 2156-10, ####KO LABORATORYCLIA [id number] [place] [id number] [place] CO2 [Moles/Vol] 29 mmol/L Normal 22-30 [facility] Comment on above: Order Comment: Speci men Type: BLOOD SPECIMENOrdering Facility: [facility] Address: [address] [place] [address] Performed By: #### 2 4362-6, 2156-10, ####[facility] LABORATORYCLIA [id number] [place] [address] [place] Creatinine [Mass/Vol] 0.90 mg/dL Normal 0.58-0.96 [facility] Comment on above: Order Comment: Speci men Type: BLOOD SPECIMENOrdering Facility: [facility] Address: [address] [place] [address] Performed By: #### 2 4362-6, 2156-10, ####[facility] LABORATORYCLIA [id number] [address] [place] Creatinine and Glomerular filtration rate.predicted panel (S/P/Bld) 66 mL/min/1.73m??? Normal >=60 [facility] Comment on above: Order Comment: Speci men Type: BLOOD SPECIMENOrdering Facility: [facility] Address: [address] [place] [address] Result Comment: Aaron mated Glomerular Filtration Rate [...] By: #### 2 4362-6, 2156-10, ####KO LABORATORYCLIA [id number] [place] [address] [place] Glucose [Mass/Vol] 91 mg/dL Normal 74-99 [facility] Comment on above: Order Comment: Lenard [facility] Type: BLOOD SPECIMENOrdering Facility: [facility] Address: [address] [place] [address] Result Comment: The [place] [employer] (ADA) provides guidance for cutoff [...] Standards of Medical Care in Diabetes 2016, [place] [employer]. Diabetes Care. 2016.39(Suppl 1). Performed By: #### 2 4362-6, 2156-10, ####[facility] LABORATORYCLIA [id number] [place] [address] [place] Phosphate [Mass/Vol] 3.9 mg/dL Normal 2.7-4.8 [facility] Comment on above: Order Comment: Lenard jesus Type: BLOOD SPECIMENOrdering Facility: [facility] Address: [address] [place] [address] Performed By: #### 2 4362-6, 2156-10, ####[facility] LABORATORYCLIA [id number] [place] [address] [place] Potassium [Moles/Vol] 4.2 mmol/L Normal 3.7-5.1 [facility] Comment on above: Order Comment: Speci men Type: BLOOD SPECIMENOrdering Facility: [facility] Address: [address] [place], [place] [address] Performed By: #### 2 4362-6, 2156-10, ####KO LABORATORYCLIA [id number] [place] [id number] [facility] Sodium [Moles/Vol] 141 mmol/L Normal 136-144 [facility] Comment on above: Order Comment: Speci men Type: BLOOD SPECIMENOrdering Facility: [facility] Address: [address] [place] [address] Performed By: #### 2 4362-6, 2156-10, ####KO LABORATORYCLIA [id number] [place] [id number] [place] Urea nitrogen [Mass/Vol] 29 mg/dL High 7-21 [facility] Comment on above: Order Comment: Speci men Type: BLOOD SPECIMENOrdering Facility: [facility] Address: [address] [place] [address] Performed By: #### 2 4362-6, 2156-10, ####KO LABORATORYCLIA [id number] [place] [id number] [facility] ALLIED HEALTHon 07-10-2023 ALLIED HEALTH HNO ID: [id number] Author: DANIELLE ESTRELLA RT(Marlee) Service: ? Author [...] PATIENT PRESENTS WITH AN IMPLANTABLE OR ATTACHED FOOD TECHNOLOGIST: No RADIOLOGY DEPARTMENT: General X-ray: Exam(s) Completed: Chest X-Ray PERIPHERAL IV DATA: Not applicable SIGNED BY: RT Maciel(R) July 10, 2023 8:12 AM Normal [facility] CBC W Auto Differential pane l (Bld)on 07-10-2023 Basophils (Bld) [#/Vol] 0.11 10*3/uL High <0.11 [facility] Comment on above: Order Comment: Speci men Type: BLOOD SPECIMENOrdering Facility: [facility] Address: [address] [place] [address] Performed By: #### 5 7021-8 ####KO LABORATORYCLIA [id number] [place] [address] [place] Basophils/100 WBC (Bld) 1.3 % Normal [facility] Comment on above: Order Comment: Speci men Type: BLOOD SPECIMENOrdering Facility: [facility] Address: [address] [place] [address] Performed By: #### 5 7021-8 ####KO LABORATORYCLIA [id number] [place] [address] [place] Differential cell count method Nom (Bld) Auto Normal [facility] Comment on above: Order Comment: Speci men Type: BLOOD SPECIMENOrdering Facility: [facility] Address: [address] [place] [address] Performed By: #### 5 7021-8 ####KO LABORATORYCLIA [id number] [place] [address] [place] Eosinophils (Bld) [#/Vol] 0.26 10*3/uL Normal <0.46 [facility] Comment on above: Order Comment: Speci men Type: BLOOD SPECIMENOrdering Facility: [facility] Address: [address] [place] [address] Performed By: #### 5 7021-8 ####KO LABORATORYCLIA [id number] [place] [address] [place] Eosinophils/100 WBC (Bld) 3.0 % Normal [facility] Comment on above: Order Comment: Speci men Type: BLOOD SPECIMENOrdering Facility: [facility] Address: [address] [place] [address] Performed By: #### 5 7021-8 ####KO LABORATORYCLIA [id number] [place] [address] [place] Erythrocyte distribution width (RBC) [Ratio] 14.8 % Normal 11.5-15.0 [facility] Comment on above: Order Comment: Speci men Type: BLOOD SPECIMENOrdering Facility: [facility] Address: [address] [place] [address] Performed By: #### 5 7021-8 ####KO LABORATORYCLIA [id number] [place] [address] [place] Hematocrit (Bld) [Volume fraction] 42.8 % Normal 36.0-46.0 [facility] Comment on above: Order Comment: Speci men Type: BLOOD SPECIMENOrdering Facility: [facility] Address: [address] [place] [address] Performed By: #### 5 7021-8 ####KO LABORATORYCLIA [id number] [place] [address] [place] Hemoglobin (Bld) [Mass/Vol] 14.0 g/dL Normal 11.5-15.5 [facility] Comment on above: Order Comment: Speci men Type: BLOOD SPECIMENOrdering Facility: [facility] Address: [address] [place] [address] Performed By: #### 5 7021-8 ####KO LABORATORYCLIA [id number] [place] [address] [place] Immature granulocytes (Bld) [#/Vol] 0.05 10*3/uL Normal <0.10 [facility] Comment on above: Order Comment: Speci men Type: BLOOD SPECIMENOrdering Facility: [facility] Address: [address] [place] [address] Performed By: #### 5 7021-8 ####KO LABORATORYCLIA [id number] [place] [address] [place] Immature granulocytes/100 WBC (Bld) 0.6 % Normal [facility] Comment on above: Order Comment: Speci men Type: BLOOD SPECIMENOrdering Facility: [facility] Address: [address] [place] [address] Performed By: #### 5 7021-8 ####KO LABORATORYCLIA [id number] [address] Lymphocytes (Bld) [#/Vol] 3.08 10*3/uL Normal 1.00-4.00 [facility] Comment on above: Order Comment: Speci men Type: BLOOD SPECIMENOrdering Facility: [facility] Address: [address] [place] [address] Performed By: #### 5 7021-8 ####KO LABORATORYCLIA [id number] [address] Lymphocytes/100 WBC (Bld) 35.7 % Normal [facility] Comment on above: Order Comment: Speci men Type: BLOOD SPECIMENOrdering Facility: [facility] Address: [address] [place] [address] Performed By: #### 5 7021-8 ####KO LABORATORYCLIA [id number] [address] MCH (RBC) [Entitic mass] 29.9 pg Normal 26.0-34.0 [facility] Comment on above: Order Comment: Speci men Type: BLOOD SPECIMENOrdering Facility: [facility] Address: [address] [place] [address] Performed By: #### 5 7021-8 ####KO LABORATORYCLIA [id number] [address] MCHC (RBC) [Mass/Vol] 32.7 g/dL Normal 30.5-36.0 [facility] Comment on above: Order Comment: Speci men Type: BLOOD SPECIMENOrdering Facility: [facility] Address: [address] [place] [address] Performed By: #### 5 7021-8 ####KO LABORATORYCLIA [id number] [address] MCV (RBC) [Entitic vol] 91.5 fL Normal 80.0-100.0 [facility] Comment on above: Order Comment: Speci men Type: BLOOD SPECIMENOrdering Facility: [facility] Address: [address] [place] [address] Performed By: #### 5 7021-8 ####KO LABORATORYCLIA [id number] [place] [address] [place] Monocytes (Bld) [#/Vol] 0.68 10*3/uL Normal <0.87 [facility] Comment on above: Order Comment: Speci men Type: BLOOD SPECIMENOrdering Facility: [facility] Address: [address] [place] [address] Performed By: #### 5 7021-8 ####KO LABORATORYCLIA [id number] [place] [address] [place] Monocytes/100 WBC (Bld) 7.9 % Normal [facility] Comment on above: Order Comment: Speci men Type: BLOOD SPECIMENOrdering Facility: [facility] Address: [address] [place] [address] Performed By: #### 5 7021-8 ####KO LABORATORYCLIA [id number] [place] [address] [place] Neutrophils (Bld) [#/Vol] 4.45 10*3/uL Normal 1.45-7.50 [facility] Comment on above: Order Comment: Speci men Type: BLOOD SPECIMENOrdering Facility: [facility] Address: [address] [place] [address] Performed By: #### 5 7021-8 ####KO LABORATORYCLIA [id number] [place] [address] [place] Neutrophils/100 WBC (Bld) 51.5 % Normal [facility] Comment on above: Order Comment: Speci men Type: BLOOD SPECIMENOrdering Facility: [facility] Address: [address] [place] [address] Performed By: #### 5 7021-8 ####KO LABORATORYCLIA [id number] [place] [address] [place] Nucleated RBC (Bld) [#/Vol] 10*3/uL Normal <0.01 [facility] Comment on above: Order Comment: Speci men Type: BLOOD SPECIMENOrdering Facility: [facility] Address: [address] [place] [address] Performed By: #### 5 7021-8 ####KO LABORATORYCLIA [id number] [place] [address] [place] Nucleated RBC/100 WBC (Bld) [Ratio] 0.0 /100 WBC Normal [facility] Comment on above: Order Comment: Speci men Type: BLOOD SPECIMENOrdering Facility: [facility] Address: [address] [place] [address] Performed By: #### 5 7021-8 ####KO LABORATORYCLIA [id number] [place] [address] [place] Platelet mean volume (Bld) [Entitic vol] 10.0 fL Normal 9.0-12.7 [facility] Comment on above: Order Comment: Speci men Type: BLOOD SPECIMENOrdering Facility: [facility] Address: [address] [place] [address] Performed By: #### 5 7021-8 ####KO LABORATORYCLIA [id number] [place] [address] [place] Platelets (Bld) [#/Vol] 313 10*3/uL Normal 150-400 [facility] Comment on above: Order Comment: Speci men Type: BLOOD SPECIMENOrdering Facility: [facility] Address: [address] [place] [address] Performed By: #### 5 7021-8 ####KO LABORATORYCLIA [id number] [place] [address] [place] RBC (Bld) [#/Vol] 4.68 10*6/uL Normal 3.90-5.20 [facility] Comment on above: Order Comment: Speci men Type: BLOOD SPECIMENOrdering Facility: [facility] Address: [address] [place] [address] Performed By: #### 5 7021-8 ####KO LABORATORYCLIA [id number] [place] [address] [place] WBC (Bld) [#/Vol] 8.63 10*3/uL Normal 3.70-11.00 [facility] Comment on above: Order Comment: Speci men Type: BLOOD SPECIMENOrdering Facility: [facility] Address: [address] [place] [address] Performed By: #### 5 7021-8 ####[facility] LABORATORYCLIA [id number] [address] [place] CK TOTAL AND CK-MBon 024 CK [Catalytic activity/Vol] 57 U/L Normal 42-196 [facility] Comment on above: Order Comment: Speci men Type: BLOOD SPECIMENOrdering Facility: [facility] Address: [address] [place] [address] Performed By: #### 3 084-1, 2777-1, [id number], , CKCKMB ####[facility] LABORATORYCLIA [id number] [address] CK.MB [Mass/Vol] 2.3 ng/mL Normal <4.4 [facility] Comment on above: Order Comment: Speci men Type: BLOOD SPECIMENOrdering Facility: [facility] Address: [address] [place] [address] Performed By: #### 3 084-1, 2777-1, [id number], , CKCKMB ####[facility] LABORATORYCLIA [id number] [address] CK.MB [Ratio] Normal [facility] Comment on above: Order Comment: Speci men Type: BLOOD SPECIMENOrdering Facility: [facility] Address: [address] [place] [address] Result Comment: CK M B % not reported with CK <100 U/L. 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 She follows with Dr. Oneill, last seen in clinic on 06/04/23. 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 Normal [facility] Comprehensive metabolic 2000 panelon 07-10-2023 Albumin [Mass/Vol] 4.2 g/dL Normal 3.9-4.9 [facility] Comment on above: Order Comment: Lenard jesus Type: BLOOD SPECIMENOrdering Facility: [facility] Address: [address] [place] [address] Performed By: #### 3 3762-6, 77929-2, [id number] ####KO LABORATORYCLIA [id number] [address] STATES OF [facility] ALP [Catalytic activity/Vol] 61 U/L Normal 34-123 [facility] Comment on above: Order Comment: Lenard jesus Type: BLOOD SPECIMENOrdering Facility: [facility] Address: [address] [place] [address] Performed By: #### 3 3762-6, 20799-5, [id number] ####KO LABORATORYCLIA [id number] [address] STATES OF [facility] ALT [Catalytic activity/Vol] 12 U/L Normal 7-38 [facility] Comment on above: Order Comment: Lenard jesus Type: BLOOD SPECIMENOrdering Facility: [facility] Address: [address] [place] [address] Performed By: #### 3 3762-6, 51418-3, [id number] ####KO LABORATORYCLIA [id number] [place] [address] [place] [facility] Anion gap [Moles/Vol] 9 mmol/L Normal 9-18 [facility] Comment on above: Order Comment: Speci men Type: BLOOD SPECIMENOrdering Facility: [facility] Address: [address] [place] [address] Performed By: #### 3 3762-6, 14938-5, [id number] ####KO LABORATORYCLIA [id number] [place] [address] [place] AST [Catalytic activity/Vol] 17 U/L Normal 13-35 [facility] Comment on above: Order Comment: Speci men Type: BLOOD SPECIMENOrdering Facility: [facility] Address: [address] [place] [address] Performed By: #### 3 3762-6, 57195-7, [id number] ####KO LABORATORYCLIA [id number] [place] [address] [place] Bilirubin [Mass/Vol] 0.3 mg/dL Normal 0.2-1.3 [facility] Comment on above: Order Comment: Speci men Type: BLOOD SPECIMENOrdering Facility: [facility] Address: [address] [place] [address] Performed By: #### 3 3762-6, 80337-1, [id number] ####KO LABORATORYCLIA [id number] [address] [place] Calcium [Mass/Vol] 9.9 mg/dL Normal 8.5-10.2 [facility] Comment on above: Order Comment: Speci men Type: BLOOD SPECIMENOrdering Facility: [facility] Address: [address] [place] [address] Performed By: #### 3 3762-6, 65210-1, [id number] ####KO LABORATORYCLIA [id number] [place] [address] [place] Chloride [Moles/Vol] 104 mmol/L Normal 97-105 [facility] Comment on above: Order Comment: Speci men Type: BLOOD SPECIMENOrdering Facility: [facility] Address: [address] [place] [address] Performed By: #### 3 3762-6, 38073-7, [id number] ####KO LABORATORYCLIA [id number] [place] [address] [place] [facility] CO2 [Moles/Vol] 28 mmol/L Normal 22-30 [facility] Comment on above: Order Comment: Lenard jesus Type: BLOOD SPECIMENOrdering Facility: [facility] Address: [address] [place] [address] Performed By: #### 3 3762-6, 49479-8, [id number] ####KO LABORATORYCLIA [id number] [place] [address] [place] Creatinine [Mass/Vol] 0.89 mg/dL Normal 0.58-0.96 [facility] Comment on above: Order Comment: Speci men Type: BLOOD SPECIMENOrdering Facility: [facility] Address: [address] [place] [address] Performed By: #### 3 3762-6, 30282-3, [id number] ####KO LABORATORYCLIA [id number] [address] Creatinine and Glomerular filtration rate.predicted panel (S/P/Bld) 67 mL/min/1.73m??? Normal >=60 [facility] Comment on above: Order Comment: Lenard jesus Type: BLOOD SPECIMENOrdering Facility: [facility] Address: [address] [place] [address] Result Comment: Aaron mated Glomerular Filtration Rate [...] actual GFR. Performed By: #### 3 3762-6, 06138-9, [id number] ####KO LABORATORYCLIA [id number] [address] [place] Glucose [Mass/Vol] 105 mg/dL High 74-99 [facility] Comment on above: Order Comment: Speci men Type: BLOOD SPECIMENOrdering Facility: [facility] Address: [address] [place] [address] Result Comment: The [place] [employer] (ADA) provides guidance for cutoff [...] Standards of Medical Care in Diabetes 2016, [place] [employer]. Diabetes Care. 2016.39(Suppl 1). Performed By: #### 3 3762-6, 40819-8, [id number] ####KO LABORATORYCLIA [id number] [place] [address] [place] Potassium [Moles/Vol] 4.3 mmol/L Normal 3.7-5.1 [facility] Comment on above: Order Comment: Lenard jesus Type: BLOOD SPECIMENOrdering Facility: [facility] Address: [address] [place] [address] Performed By: #### 3 3762-6, 04049-9, [id number] ####KO LABORATORYCLIA [id number] [place] [address] [place] Protein [Mass/Vol] 7.5 g/dL Normal 6.3-8.0 [facility] Comment on above: Order Comment: Lenard jesus Type: BLOOD SPECIMENOrdering Facility: [facility] Address: [address] [place] [address] Performed By: #### 3 3762-6, 22403-1, [id number] ####KO LABORATORYCLIA [id number] [place] [address] [place] Sodium [Moles/Vol] 141 mmol/L Normal 136-144 [facility] Comment on above: Order Comment: Lenard jesus Type: BLOOD SPECIMENOrdering Facility: [facility] Address: [address] [place] [address] Performed By: #### 3 3762-6, 42975-4, [id number] ####KO LABORATORYCLIA [id number] [place] [address] [facility] Urea nitrogen [Mass/Vol] 33 mg/dL High 7-21 [facility] Comment on above: Order Comment: Speci men Type: BLOOD SPECIMENOrdering Facility: [facility] Address: [address] [id number] Performed By: #### 3 3762-6, 68393-6, [id number] ####[facility] LABORATORYCLIA [id number] [place] [address] [facility] ED NOTEon 07-10-2023 ED NOTE HNO ID: [id number] Author: OLIVERIO RITTER, CARO Service: Nursing Author Type: Registered Nurse Type: ED Notes Filed: 07/10/2023 13:06 Note Text: Report called to 4S RN at this time. [facility] ED NOTE HNO ID: [id number] Author: OLIVERIO RITTER RN Service: Nursing Author Type: Registered Nurse Type: ED Notes Filed: 07/10/2023 12:50 Note Text: Dr. Sams rounding on patient at bedside at this time. [facility] ED NOTE HNO ID: [id number] Author: OLIVERIO RITTER RN Service: Nursing Author Type: Registered Nurse Type: ED Notes Filed: 07/10/2023 12:13 Note Text: Room air ambulatory pulse oximetry obtained at 92-93%. Patient returned to bed. Patient tolerated fairly. She does endorse that she has unsteadiness and dizziness when ambulating. SPO2 90% on RA when returned to bed. Discussed with Dr. Medina at this time. [facility] ED NOTE HNO ID: [id number] Author: BENTLEY PATTON RN Service: ? Author Type: Registered Nurse Type: ED Notes Filed: 07/10/2023 07:50 Note Text: Pt spo2 noted to be 89-90% on room air. Placed on O2, 2lpm via NC. Dr. Medina aware. [facility] ED NOTE HNO ID: [id number] Author: MARY LOU LIGHT, CARO Service: ? Author Type: Registered Nurse Type: ED Notes Filed: 07/10/2023 07:17 Note Text: Chest pressure woke her up out of sleep at approx 0430 C/O chest pressure 6/10 [facility] ED PROV NOTEon 07-10-2023 ED PROV NOTE HNO ID: [id number] Author: JIM MEDINA MD Service: ? Author [...] Mouth/Throat: M (more content not included)... Normal [facility] EKGon 07-10-2023 Electrocardiogram Ventricular Rate : 7 2 BPM Atrial Rate : 72 BPM P-R Interval : 134 ms QRS Duration : 172 ms Q-T Interval : 424 ms QTC Calculation(Bazett) : 464 ms Calculated P [place] : 39 degrees Calculated R [place] : -10 degrees Calculated T [place] : 153 degrees NORMAL SINUS RHYTHM LEFT BUNDLE BRANCH BLOCK ABNORMAL ECG 716 Confirmed by MD MEDINA MICHAEL ([id number]), online editor Alyssa Russell ([id number]) on 07/10/2023 3:39:44 PM NAME : SANDRA SCHMITZ PID : [id number] : 1945 Gender : Female Race : ORD : Procedure Date : Jul 10 2023 07:12:14 Edit Date : Jul 10 2023 15:39:46 Diagnosis: NORMAL SINUS RHYTHM LEFT BUNDLE BRANCH BLOCK ABNORMAL ECG 716 Confirmed by MD MEDINA MICHAEL ([id number]), online editor Alyssa Russell ([id number]) on 07/10/2023 3:39:44 PM Test Reason : Location : 1 : ER ED Overread By : MD MEDINA MICHAEL Edited By : Alyssa Russell Referred By : , Acquired by : Terrie AMADOR [facility] HIGH SENSITIVITY TROPONIN T (INITIAL)on 07-10-2023 Troponin T.cardiac High sensitivity method [Mass/Vol] 25 ng/L High <12 [facility] Comment on above: Order Comment: Speci men Type: BLOOD SPECIMENOrdering Facility: [facility] Address: [address] [place] [address] Result Comment: When assessing risk for acute [...] day MACE. Performed By: #### 3 3762-6, 20963-4, [id number] ####KO LABORATORYCLIA [id number] [place] [address] [place] HIGH SENSITIVITY TROPONIN T (SECOND)on 07-10-2023 Troponin T.cardiac High sensitivity method [Mass/Vol] 25 ng/L High <12 [facility] Comment on above: Order Comment: Lenard jesus Type: BLOOD SPECIMENOrdering Facility: [facility] Address: [address] [place] [address] Result Comment: When assessing risk for acute [...] 30 day MACE. Performed By: #### L [id number] ####KO LABORATORYCLIA [id number] [place] [address] [place] HIGH SENSITIVITY TROPONIN T (THIRD) 3 HRS AFTER INITIALon 07-10-2023 Troponin T.cardiac High sensitivity method [Mass/Vol] 24 ng/L High <12 [facility] Comment on above: Order Comment: Lenard jesus Type: BLOOD SPECIMENOrdering Facility: [facility] Address: [address] [place] [address] Result Comment: When assessing risk for acute [...] MACE. Performed By: #### 3 084-1, 2777-1, [id number], 95564-5, CKCKMB ####KO LABORATORYCLIA [id number] [place] [address] [place] HISTORY PHYSICALon HISTORY PHYSICAL HNO ID: [id number] Author: REMINGTON CAI MD Service: Hospital Medicine Author Type: Physician Type: H&P Filed: 07/10/2023 13:52 Note Text: DEPARTMENT OF HOSPITAL MEDICINE HISTORY AND PHYSICAL EXAM SERVICE DATE: 07/10/2023 SERVICE TIME: 1:49 PM Hospital Medicine/Primary Attending: Remington Cai MD NIGHT AND WEEKEND COVERAGE: [facility] [employer]: Nights: [phone], please page [facility] Night coverage pager [phone]. Admission date: 07/10/2023 MEDICAL DECISION MAKING Reason for Admission: Chest pain Reviewed notes: Interpreted labs: Interpreted imaging indpendently: Interpreted EKG independently: See EKG interpretation below. ASSESSMENT/PLAN Chest z-tbm-qkfojtxqxhly with elevated left hemidiaphragm and bibasilar atelectasis [...] fibrillation. She has seen Dr. Greenfield the toddler lead teacher. She is to be scheduled for pacer [...] S1: decreased (more content not included)... Normal [facility] Magnesium [Mass/Vol] 2.0 mg/dL Normal 1.7-2.3 [facility] Comment on above: Order Comment: [facility] Type: BLOOD SPECIMENOrdering Facility: [facility] Address: [address] [place] [address] Performed By: #### 3 084-1, 2777-1, [id number], 85369-2, CKCKMB ####[facility] LABORATORYCLIA [id number] [place] [address] [place] NT-proBNP [facility] Natriuretic peptide.B prohormone N-Terminal [Mass/Vol] 3171 pg/mL High <450 [facility] Comment on above: Order Comment: [facility] Type: BLOOD SPECIMENOrdering Facility: [facility] Address: [address] [place] [address] Performed By: #### 3 3762-6, 51150-0, [id number] ####[facility] LABORATORYCLIA [id number] [place] [id number] [place] [facility]ate [facility] Phosphate [Mass/Vol] 3.6 mg/dL Normal 2.7-4.8 [facility] Comment on above: Order Comment: Speci men Type: BLOOD SPECIMENOrdering Facility: [facility] Address: [address] [place] [address] Performed By: #### 3 084-1, 2777-1, [id number], 02751-0, CKCKMB ####[facility] LABORATORYCLIA [id number] [address] Urate SerPl-mCncon Urate [Mass/Vol] 9.1 mg/dL High 2.5-6.6 [facility] Comment on above: Order Comment: Speci men Type: BLOOD SPECIMENOrdering Facility: [facility] Address: [address] [place] [address] Performed By: #### 3 084-1, 2777-1, [id number], 81822-8, CKCKMB ####[facility] LABORATORYCLIA [id number] [address] Urinalysis complete panel (U )on 07-10-2023 Bacteria LM.HPF (Urine sed) [#/Area] Few Abnormal None Seen [facility] Comment on above: Order Comment: Speci men Type: URINE SPECIMENOrdering Facility: [facility] Address: [address] [place] [address] Performed By: #### 2 4356-8 ####[facility] LABORATORYCLIA [id number] [address] Bilirubin Ql (U) Negative Normal Negative [facility] Comment on above: Order Comment: Speci men Type: URINE SPECIMENOrdering Facility: [facility] Address: [address] [place] [address] Performed By: #### 2 4356-8 ####[facility] LABORATORYCLIA [id number] [address] Clarity (Unsp spec) Clear Normal Clear [facility] Comment on above: Order Comment: Speci men Type: URINE SPECIMENOrdering Facility: [facility] Address: [address] [place] [address] Performed By: #### 2 4356-8 ####KO LABORATORYCLIA [id number] [place] [address] [place] Color (U) Yellow Normal Yellow [facility] Comment on above: Order Comment: Speci men Type: URINE SPECIMENOrdering Facility: [facility] Address: [address] [place] [address] Performed By: #### 2 4356-8 ####KO LABORATORYCLIA [id number] [place] [address] [place] Epithelial cells LM.HPF (Urine sed) [#/Area] Few Normal [facility] Comment on above: Order Comment: Speci men Type: URINE SPECIMENOrdering Facility: [facility] Address: [address] [place] [address] Performed By: #### 2 4356-8 ####KO LABORATORYCLIA [id number] [address] [place] Glucose Test strip (U) [Mass/Vol] Negative Normal Negative [facility] Comment on above: Order Comment: Speci men Type: URINE SPECIMENOrdering Facility: [facility] Address: [address] [place] [address] Performed By: #### 2 4356-8 ####KO LABORATORYCLIA [id number] [address] [place] Hemoglobin Ql (U) Negative Normal Negative [facility] Comment on above: Order Comment: Speci men Type: URINE SPECIMENOrdering Facility: [facility] Address: [address] [place] [address] Performed By: #### 2 4356-8 ####KO LABORATORYCLIA [id number] [place] [address] [place] Ketones Ql (U) Negative Normal Negative [facility] Comment on above: Order Comment: Speci men Type: URINE SPECIMENOrdering Facility: [facility] Address: [facility] [place] [address] Performed By: #### 2 4356-8 ####KO LABORATORYCLIA [id number] [address] [place] Leukocyte esterase Test strip Ql (U) Negative Normal Negative [facility] Comment on above: Order Comment: Speci men Type: URINE SPECIMENOrdering Facility: [facility] Address: [address] [place] [address] Performed By: #### 2 4356-8 ####KO LABORATORYCLIA [id number] [place] [address] [place] Nitrite Ql (U) Negative Normal Negative [facility] Comment on above: Order Comment: Speci men Type: URINE SPECIMENOrdering Facility: [facility] Address: [address] [place] [address] Performed By: #### 2 4356-8 ####KO LABORATORYCLIA [id number] [place] [address] [place] pH (U) 6.5 [pH] Normal 5.0-8.0 [facility] Comment on above: Order Comment: Speci men Type: URINE SPECIMENOrdering Facility: [facility] Address: [address] [place] [address] Performed By: #### 2 4356-8 ####KO LABORATORYCLIA [id number] [place] [address] [place] Protein (U) [Mass/Vol] Negative Normal Negative [facility] Comment on above: Order Comment: Speci men Type: URINE SPECIMENOrdering Facility: [facility] Address: [address] [place] [address] Performed By: #### 2 4356-8 ####KO LABORATORYCLIA [id number] [place] [address] [place] RBC LM.HPF (Urine sed) [#/Area] 0-3 /HPF Normal 0-3 /HPF [facility] Comment on above: Order Comment: Speci men Type: URINE SPECIMENOrdering Facility: [facility] Address: [address] [place] [address] Performed By: #### 2 4356-8 ####KO LABORATORYCLIA [id number] [place] [address] [place] Specific gravity (U) [Rel density] <=1.005 Low 1.005-1.030 [facility] Comment on above: Order Comment: Speci men Type: URINE SPECIMENOrdering Facility: [facility] Address: [address] [place] [address] Performed By: #### 2 4356-8 ####KO LABORATORYCLIA [id number] [address] Urobilinogen Ql (U) 0.2 EU/dL Normal 0.2-1.0 EU/dL [facility] Comment on above: Order Comment: Speci men Type: URINE SPECIMENOrdering Facility: [facility] Address: [address] [place] [address] Performed By: #### 2 4356-8 ####H[facility] LABORATORYCLIA [id number] [address] [place] WBC LM.HPF (Urine sed) [#/Area] 0-5 /HPF Normal 0-5 /HPF [facility] Comment on above: Order Comment: Speci men Type: URINE SPECIMENOrdering Facility: [facility] Address: [address] [place] [address] Performed By: #### 2 4356-8 ####H[facility] LABORATORYCLIA [id number] [address] OF [facility] XR CHEST 2V FRONTAL/LATon XR CHEST [...] tissues: Unremarkable. IMPRESSION: No acute radiographic abnormality. Night Clerk: KEYANA Transcribe Date/Time: Jul 10 2023 8:19A Dictated by : YESENIA GUZMAN MD This examination was interpreted and the report reviewed and electronically signed by: YESENIA GUZMAN MD on Jul 10 2023 8:20AM EST [id number] [facility] 06[facility]12[facility]2023 [facility] Office Visit (AGCARD POB) ----- SANDRA SCHMITZ ([id number]) 1945 [address]* Date Time Provider Department 06/12/23 3:20 PM [facility] During your visit today, we recorded the following information about you: Pulse Blood pressure Weight Height 68/minute 115/74 86.2 kg 1.6 m Randa Smith MA 06/12/2023 4:02 PM Signed No cardiac complaints today. FELIPE Rios Sergey Aleksandrovich, MD 06/12/2023 4:02 PM Signed Heart [facility] V[facility] SECTION OF CARDIAC PACING and ELECTROPHYSIOLOGY OUTPATIENT VISIT DATE June 12, 2023 OUTPATIENT VISIT TYPE NEW PRIMARY CARE PHYSICIAN: Mandeep Houser [address] [phone] REFERRING PHYSICIAN: Santo Oneill MD. HISTORY OF PRESENT ILLNESS: 77-year-old female with history of nonischemic cardiomyopathy, severe LV systolic function, LVEF of 30% despite GDMT, LBBB with QRS of 170 ms, was referred for consideration of ASSISTANT CENTER MANAGER-D system implantation for prevention of sudden cardiac [...] on chronic systolic CHF (congestive heart failure) ([facility]) 05/03/2020 Aspiration pneumonia ([facility]) 05/30/2020 Chest pain 05/03/2020 Chest pressure 01/23/2013 Chronic diastolic congestive heart failure ([facility]) 02/14/2021 Clostridium difficile diarrhea 09/28/2020 Complete uterovaginal prolapse Cystocele, midline Essential hypertension 06/14/2020 Homozygous Factor V Leiden mutation ([facility]) 05/03/2020 Hypothyroidism IBS (irritable [...] syncope. Psychiatric/Behavior (more content not included)... Normal [facility] XR Chest PA and Lateralon IMPRESSION: Stable exam with mild cardiomegaly and nonspecific parenchymal changes in left lung base. Night Clerk: KEYANA Transcribe Date/Time: May 20 2023 10:19A Dictated by : KRISHNA CRUZ MD This examination was interpreted and the report reviewed and electronically signed by: KRISHNA CRUZ MD on May 20 2023 10:20AM [facility] DIVISION OF RADIOLOGY * * [...] soft tissues: Unremarkable. DIVISION OF RADIOLOGY Provider, [facility] - 05/20/2023 * * *Final Report* [...] nonspecific parenchymal changes in left lung base. Night Clerk: PSCB Transcribe Date/Time: May 20 2023 10:19A Dictated by : KRISHNA CRUZ MD This examination was interpreted and the report reviewed and electronically signed by: KRISHNA CRUZ MD on May 20 2023 10:20AM EST [facility] XR Chest PA and LateralOrder ed By: Cc Provider on 05-20-2023 [facility] XR Chest PA and Lateralon Radiology Study observation (narrative) [facility] XR CHEST 2V FRONTAL/LATon [facility] STREP A MOLECULAR (POC)on Procedural Control Valid [facility] Strep A (POCT) Negative Negative [facility] CT ABD/PEL W IVCONon 023 [facility] DXA-AXIAL SKELETONon 023 [facility] VITAMIN D 25 HYDROXYon 07-22 25-hydroxyvitamin D3 [Mass/Vol] 45.2 ng/mL 31.0 - 80.0 ng/mL [facility] CBC panel Auto (Bld)on 07-21 Erythrocyte distribution width (RBC) [Ratio] 14.2 % 11.5 - 15.0 % [facility] Hematocrit (Bld) [Volume fraction] 41.8 % 36.0 - 46.0 % [facility] Hemoglobin (Bld) [Mass/Vol] 13.1 g/dL 11.5 - 15.5 g/dL [facility] MCH (RBC) [Entitic mass] 29.3 pg 26.0 - 34.0 pg [facility] MCHC (RBC) [Mass/Vol] 31.3 g/dL 30.5 - 36.0 g/dL [facility] MCV (RBC) [Entitic vol] 93.5 fL 80.0 - 100.0 fL [facility] Nucleated RBC (Bld) [#/Vol] <0.01 k/uL [facility] Platelet mean volume (Bld) [Entitic vol] 10.6 fL 9.0 - 12.7 fL [facility] Platelets (Bld) [#/Vol] 346 10*3/uL 150 - 400 k/uL [facility] RBC (Bld) [#/Vol] 4.47 10*6/uL 3.90 - 5.2 0 m/uL [facility] WBC (Bld) [#/Vol] 9.77 10*3/uL 3.70 - 11.00 k/uL [facility] Comprehensive metabolic 2000 panelon 07-21-2022 Albumin [Mass/Vol] 4.2 g/dL 3.9 - 4.9 g/dL [facility] ALP [Catalytic activity/Vol] 61 U/L 34 - 123 U/L [facility] ALT [Catalytic activity/Vol] 12 U/L 7 - 38 U/L [facility] Anion gap [Moles/Vol] 8 mmol/L Low 9 - 18 mmol/L [facility] AST [Catalytic activity/Vol] 15 U/L 13 - 35 U/L [facility] Bilirubin [Mass/Vol] 0.6 mg/dL 0.2 - 1 .3 mg/dL [facility] Calcium [Mass/Vol] 9.6 mg/dL 8.5 - 10. 2 mg/dL [facility] Chloride [Moles/Vol] 106 mmol/L High 97 - 10 5 mmol/L [facility] CO2 [Moles/Vol] 28 mmol/L 22 - 30 mmol/L [facility] Creatinine [Mass/Vol] 0.75 mg/dL 0.58 - 0.96 mg/dL [facility] Estimated Glomerular Filtration Rate 83 mL/min/1.73m >=60 mL/min/1.73 m [facility] Glucose [Mass/Vol] 68 mg/dL Low 74 - 99 mg/dL [facility] Potassium [Moles/Vol] 4.3 mmol/L 3.7 - 5.1 mmol/L [facility] Protein [Mass/Vol] 7.0 g/dL 6.3 - 8.0 g/dL [facility] Sodium [Moles/Vol] 142 mmol/L 136 - 144 mmol/L [facility] Urea nitrogen [Mass/Vol] 20 mg/dL 7 - 21 mg/dL [facility] HbA1c (Bld)on 07-21-2022 Average glucose Estimated from glycated hemoglobin (Bld) [Mass/Vol] 117 mg/dL [facility] HbA1c (Bld) [Mass fraction] 5.7 % High 4.3 - 5.6 % [facility] Lipid 1996 panelon Cholesterol [Mass/Vol] 220 mg/dL High <200 mg/dL [facility] Cholesterol in HDL [Mass/Vol] 46 mg/dL >39 mg/dL [facility] Cholesterol in LDL [Mass/Vol] 137 mg/dL High <100 mg/dL [facility] Cholesterol in LDL/Cholesterol in HDL [Mass ratio] 2.98 {ratio} High <2.54 [facility] Cholesterol in VLDL [Mass/Vol] 37 mg/dL High <30 mg/dL [facility] Cholesterol non HDL [Mass/Vol] 174 mg/dL High <130 mg/dL [facility] Cholesterol.total/Chol esterol in HDL [Mass ratio] 4.78 {ratio} <5.10 [facility] Fasting Time 4 hrs [facility] Triglyceride [Mass/Vol] 184 mg/dL High <150 mg/dL [facility] T3 [facility] 07-21-2022 T3 [Mass/Vol] 75 ng/dL Low 79 - 165 ng/dL [facility] T4 FREE/FREE THYROXon 2022 Free T4 [Mass/Vol] 1.6 ng/dL 0.9 - 1.7 ng/dL [facility] TSH [facility] 07-21-2022 TSH Qn 1.880 m[IU]/L 0.270 - 4.200 mIU/L [facility] VITAMIN B12 BLOODon 07-22-19 Cobalamin (Vitamin B12) [Mass/Vol] 246 pg/mL 232 - 1,245 pg/mL [facility] ALGN ALMOND IGEon 05-23-2022 [place] IgE Qn (S) <0.35 KU/L [facility] ALGN CASHEW NUT IGEon 2022 Cashew nut IgE Qn (S) <0.35 KU/L [facility] ALGN GLUTEN IGEon 05-23-2022 Gluten IgE Qn (S) <0.35 kU/l [facility] ALGN PEANUT IGEon 05-23-2022 Peanut IgE Qn (S) <0.35 kU/l [facility] ALGN PECAN NUT IGEon 023 Pecan or [place] Nut IgE Qn (S) <0.35 kU/l [facility] ALGN WHEAT IGEon 05-23-2022 Wheat IgE Qn (S) <0.35 kU/l [facility] Colton IgE Qn (S)on 05-23-19 [place] IgE RAST class (S) Class 0 Class 0 [facility] Cashew nut IgE Qn (S)on 05-14 Cashew nut IgE RAST class (S) Class 0 Class 0 [facility] Comprehensive metabolic 2000 panelon 05-23-2022 Albumin [Mass/Vol] 4.4 g/dL 3.9 - 4.9 g/dL [facility] ALP [Catalytic activity/Vol] 65 U/L 34 - 123 U/L [facility] ALT [Catalytic activity/Vol] 12 U/L 7 - 38 U/L [facility] Anion gap [Moles/Vol] 12 mmol/L 9 - 18 mmol/L [facility] AST [Catalytic activity/Vol] 25 U/L 13 - 35 U/L [facility] Bilirubin [Mass/Vol] 0.8 mg/dL 0.2 - 1 .3 mg/dL [facility] Calcium [Mass/Vol] 9.9 mg/dL 8.5 - 10. 2 mg/dL [facility] Chloride [Moles/Vol] 101 mmol/L 97 - 10 5 mmol/L [facility] CO2 [Moles/Vol] 25 mmol/L 22 - 30 mmol/L [facility] Creatinine [Mass/Vol] 0.90 mg/dL 0.58 - 0.96 mg/dL [facility] Estimated Glomerular Filtration Rate 67 mL/min/1.73m >=60 mL/min/1.73 m [facility] Glucose [Mass/Vol] 73 mg/dL Low 74 - 99 mg/dL [facility] Potassium [Moles/Vol] 4.7 mmol/L 3.7 - 5.1 mmol/L [facility] Protein [Mass/Vol] 7.6 g/dL 6.3 - 8.0 g/dL [facility] Sodium [Moles/Vol] 138 mmol/L 136 - 144 mmol/L [facility] Urea nitrogen [Mass/Vol] 27 mg/dL High 7 - 21 mg/dL [facility] Gluten IgE Qn (S)on 05-23-19 Gluten IgE RAST class (S) Class 0 Class 0 [facility] Peanut IgE Qn (S)on 05-23-19 Peanut IgE RAST class (S) Class 0 Class 0 [facility] Pecan or [place] Nut IgE Qn (S)on 05-23-2022 Pecan or [place] Nut IgE RAST class (S) Class 0 Class 0 [facility] URINE CULTUREon 05-23-2022 Bacteria identified Cx Nom (U) No growth (<1,000 CFU/ml) [facility] Urinalysis complete panel (U )on 05-23-2022 Bilirubin Ql (U) Negative Negative [facility] Clarity (Unsp spec) Clear Clear [facility] Color (U) Light Yellow Yellow [facility] Epithelial cells LM.HPF (Urine sed) [#/Area] Few [facility] Glucose Test strip (U) [Mass/Vol] Negative Trace, Negative [facility] Hemoglobin Ql (U) Negative Negative, Trace [facility] Hyaline casts (Urine sed) [#/Area] 1-3 /LPF Abnormal 0 /LPF [facility] Ketones Ql (U) Negative Trace, Negative [facility] Leukocyte esterase Test strip Ql (U) Negative Negative, 25 Cruz/mL [facility] Nitrite Ql (U) Negative Negative [facility] pH (U) 6.5 [pH] 5.0 - 8.0 [facility] Protein (U) [Mass/Vol] 1+ Abnormal Trace , Negative [facility] RBC LM.HPF (Urine sed) [#/Area] 0-3 /HPF 0-3 /HPF [facility] Specific gravity (U) [Rel density] 1.023 1.005 - 1.030 [facility] Urobilinogen Ql (U) Negative Negative [facility] WBC LM.HPF (Urine sed) [#/Area] 0-5 /HPF 0-5 /HPF [facility] Wheat IgE Qn (S)on Wheat IgE RAST class (S) Class 0 Class 0 [facility] CBC W Auto Differential pane l (Bld)on 05-22-2022 Basophils (Bld) [#/Vol] 0.12 10*3/uL High <0.11 k/uL [facility] Basophils/100 WBC (Bld) 1.4 % [facility] Differential cell count method Nom (Bld) Auto [facility] Eosinophils (Bld) [#/Vol] 0.26 10*3/uL <0.46 k/uL [facility] Eosinophils/100 WBC (Bld) 3.0 % [facility] Erythrocyte distribution width (RBC) [Ratio] 14.6 % 11.5 - 15.0 % [facility] Hematocrit (Bld) [Volume fraction] 44.9 % 36.0 - 46.0 % [facility] Hemoglobin (Bld) [Mass/Vol] 14.2 g/dL 11.5 - 15.5 g/dL [facility] Immature granulocytes (Bld) [#/Vol] 0.03 10*3/uL <0.10 k/uL [facility] Immature granulocytes/100 WBC (Bld) 0.3 % [facility] Lymphocytes (Bld) [#/Vol] 3.76 10*3/uL 1.00 - 4.00 k/uL [facility] Lymphocytes/100 WBC (Bld) 42.8 % [facility] MCH (RBC) [Entitic mass] 29.4 pg 26.0 - 34.0 pg [facility] MCHC (RBC) [Mass/Vol] 31.6 g/dL 30.5 - 36.0 g/dL [facility] MCV (RBC) [Entitic vol] 93.0 fL 80.0 - 100.0 fL [facility] Monocytes (Bld) [#/Vol] 0.82 10*3/uL <0.87 k/uL [facility] Monocytes/100 WBC (Bld) 9.3 % [facility] Neutrophils (Bld) [#/Vol] 3.80 10*3/uL 1.45 - 7.50 k/uL [facility] Neutrophils/100 WBC (Bld) 43.2 % [facility] Nucleated RBC (Bld) [#/Vol] <0.01 k/uL [facility] Nucleated RBC/100 WBC (Bld) [Ratio] 0.0 /100 WBC [facility] Platelet mean volume (Bld) [Entitic vol] 10.8 fL 9.0 - 12.7 fL [facility] Platelets (Bld) [#/Vol] 365 10*3/uL 150 - 400 k/uL [facility] RBC (Bld) [#/Vol] 4.83 10*6/uL 3.90 - 5.2 0 m/uL [facility] WBC (Bld) [#/Vol] 8.79 10*3/uL 3.70 - 11.00 k/uL [facility] No Panel Informationon 12-[address] [facility] [address] ABD/PEL W IVCONon 022 [facility] No Panel InformationOrdered By: Ccf Provider on 09-02-2021 [facility] XR Elbow - left AP and Later jones 09-02-2021 IMPRESSION: NO ACUTE FINDINGS. Night Clerk: KEYANA Transcribe Date/Time: Sep 02 2021 7:52A [...] - ZZZ_DO_NOT_ USE_DIVISIO N OF RADIOLOGY Provider, [facility] - 09/02/2021 * * *Final Report* [...] preserved. - IMPRESSION IMPRESSION: NO ACUTE FINDINGS. Night Clerk: PSCB Transcribe Date/Time: Sep 02 2021 7:52A Dictated by : MALCOM GELLER MD This examination was interpreted and the report reviewed and electronically signed by: MALCOM GELLER MD on Sep 02 2021 7:53AM EST [facility] XR Shoulder - left 2 Viewson 09-02-2021 IMPRESSION: NO ACUTE FINDINGS. Night Clerk: PSCB Transcribe Date/Time: Sep 02 2021 7:53A [...] - ZZZ_DO_NOT_ USE_DIVISIO N OF RADIOLOGY Provider, [facility] - 09/02/2021 * * *Final Report* [...] maintained. - IMPRESSION IMPRESSION: NO ACUTE FINDINGS. Night Clerk: PSCMykel Transcribe Date/Time: Sep 02 2021 7:53A Dictated by : MALCOM GELLER MD This examination was interpreted and the report reviewed and electronically signed by: MALCOM GELLER MD on Sep 02 2021 7:53AM EST [facility] Panel Informationon 09-01 Radiology Study observation (narrative) [facility] KARTHIK SCREENINGon 08-15-2021 [facility] XR Ankle - right AP and Late ral and obliqueon 01-05-2021 IMPRESSION: No radiographic evidence of acute osseous injury. Plantar calcaneal enthesophyte. Night Clerk: KEYANA Transcribe Date/Time: Jan 05 2021 10:38A [...] plantar calcaneal enthesophyte. DIVISION OF RADIOLOGY Provider, [facility] - 01/05/2021 * * *Final [...] of acute osseous injury. Plantar calcaneal enthesophyte. Night [facility] Transcribe Date/Time: Jan 05 2021 10:38A Dictated by : ZEKE TIRADO MD This examination was interpreted and the report reviewed and electronically signed by: ZEKE TIRADO MD on Jan 05 2021 10:39AM EST [facility] Radiology Study observation (narrative) [facility] XR Ankle - right AP and Late ral and obliqueOrdered By: Ccf Provider on 01-05-2021 [facility] XR Toes - left 3 Viewson IMPRESSION: Refer to the result. Night Clerk: PSCMykel Transcribe Date/Time: Aug 02 2020 12:20P Dictated by : BUCK MARRUFO MD This examination was interpreted and the report reviewed and electronically signed by: BUCK MARRUFO MD on Aug 02 2020 12:25PM [facility] DIVISION OF RADIOLOGY * * [...] proximal interphalangeal joint. DIVISION OF RADIOLOGY Provider, [facility] - 08/02/2020 * * *Final Report* [...] joint. IMPRESSION IMPRESSION: Refer to the result. Night Clerk: KEYANA Transcribe Date/Time: Aug 02 2020 12:20P Dictated by : BUCK MARRUFO MD This examination was interpreted and the report reviewed and electronically signed by: BUCK MARRUFO MD on Aug 02 2020 12:25PM EST [facility] Radiology Study observation (narrative) [facility] XR Toes - left 3 ViewsOrdere d By: Ccf Provider on 08-02-2020 [facility] XR CHEST 2V FRONTAL/LATon XR [...] tissues: Unremarkable. IMPRESSION: No acute radiographic abnormality. Night Clerk: [facility] Transcribe Date/Time: May 26 2020 9:36A Dictated by : SALLIE BUTTS MD This examination was interpreted and the report reviewed and electronically signed by: SALLIE BUTTS MD on May 26 2020 9:39AM EST Normal [facility] No Panel Informationon 04-27 [facility] MANAGER DENTAL - Office Visiton 02-11 MANAGER DENTAL - Office Visit Chief Complaint Patient here for pessary check. It is causing her discomfort. 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 Kameron [...] 81 MG Oral Tablet Delayed Release; Therapy: (Recorded:[id number]) to Recorded Dispense: 0 Days ; #: Sufficient; Refill: 0; ZAK = N; Record; Last Updated By: Bety Iverson; 01/28/2020 1:21:26 PM Fontanez Concentrate Oral Concentrate; Therapy: (Recorded:[id number]) to Recorded Dispense: 0 Days ; #: Sufficient; Refill: 0; ZAK = N; Record; Last Updated By: Bety Iverson; 01/28/2020 1:21:27 PM Vitamin D3 25 MCG (1000 UT) Oral Tablet; TAKE 1 TABLET DAILY; Therapy: (Recorded:[id number]) to Recorded Dispense: 0 Days ; #: Sufficient Tablet; Refill: 0; ZAK = N; Record; Last Updated By: Bety Iverson; 01/28/2020 1:21:27 PM Vitals Vital Signs Recorded: [id number] 10:13AM Xnjdpclf547 Srkysbuyp95 Huuuwn460 lb BMI Zmepnddrqb80.9 BSA Calculated1.92 Physical Exam Constitutional: Alert and [...] Nom (U) PATIENT: SANDRA SCHMITZ LOCATION: [facility]#: [id number] : 47 AGE: SEX: F ORDERED BY: ISAEL MELO: URINE COLLECTED: 02/04/20 16:53ANTIBIOTICS AT [facility].: RECEIVED : 02/05/20 00:18SITE: R E S U L T S URINE CULTURE,BACTERIAL FINAL 02/05/20 18:51 NO SIGNIFICANT GROWTH. [facility] Work Phone: MANAGER DENTAL - Office Visiton 01-13 MANAGER DENTAL - Office Visit Chief Complaint recheck pessary, refer from DR. Doll History of Present Nozftgu89 y.o. W and 1 ectopic with prior [...] Tablet; TAKE 1 TABLET DAILY Requested for: [id number]; Last Rx:[id number] Ordered Rx By: Rafael Frank III; Dispense: 90 Days ; #:90 Tablet; Refill: 1;For: Hypothyroidism; ZAK = N; Print Rx; Last Updated By: Bety Iverson; 01/28/2020 1:21:26 PM Aspirin Adult Low Dose 81 MG Oral Tablet Delayed Release; Therapy: (Recorded:[id number]) to Recorded Dispense: 0 Days ; #: Sufficient; Refill: 0; ZAK = N; Record; Last Updated By: Bety Iverson; 01/28/2020 1:21:26 PM Fontanez Concentrate Oral Concentrate; Therapy: (Recorded:[id number]) to Recorded Dispense: 0 Days ; #: Sufficient; Refill: 0; ZAK = N; Record; Last Updated By: Bety Iverson; 01/28/2020 1:21:27 PM Vitamin D3 25 MCG (1000 UT) Oral Tablet; TAKE 1 TABLET DAILY; Therapy: (Recorded:[id number]) to Recorded Dispense: 0 Days ; #: Sufficient Tablet; Refill: 0; ZAK = N; Record; Last Updated By: Bety Iverson; 01/28/2020 1:21:27 PM Vitals Vital Signs Recorded: [id number] 02:16PM Ouxpfdwd557 Reybfkiob60 Height5 ft 3 in Gfqxtf066 lb BMI Syksiglwcc69.43 BSA Calculated1.93 LMPyears ago Gravida2 Para1 Physical [...] (788.1) (R30.0) Orders Cult, Urine; Status:Active; Requested for:[id number]; Perform:Lab Services - Lab To Draw (Non-Blood Test); Due:[id number];Ordered; For:Dysuria; Ordered By:Darren Melo; Urinalysis; Status:Active; Requested for:[id number]; Perform:Lab Services - Lab To Draw (Non-Blood Test); Due:[id number];Ordered; For:Dysuria; Ordered By:Darren Melo; Provider Impressions Utero [...] MICROSCOPICon 02-04-2020 BACTERIA 4+ /HPF Abnormal [place]/[facility] Comment on above: Performed By: #### L IPID #### [address] [address] RBC (Bld) [#/Vol] NONE [facility] 0[facility]5 [facility] Comment on above: Performed By: #### L IPID #### [address] [address] SQUAMOUS EPITH. CELLS 3 /HPF Normal [place] inson/[facility] Comment on above: Performed By: #### L IPID #### [address] [address] WBC 1 /HPF Normal 0-5 [place] Comment on above: Performed By: #### L IPID #### [address] [address] URINALYSISon 02-04-2020 Appearance (U) Clear Normal CLEAR [place]/[facility] Comment on above: Performed By: #### U A #### [address] [address] Bilirubin (U) [Mass/Vol] Negative Normal NEGATIVE [place]/[facility] Comment on above: Performed By: #### U A #### [address] [address] BLOOD Negative Normal NEGATIVE [place] Comment on above: Performed By: #### U A #### [address] [address] Color (U) Yellow Normal STRAW,YELLO W [place]/[facility] Comment on above: Performed By: #### U A #### [address] [address] Glucose [Mass/Vol] Negative Normal NEGATIVE [place]/Po [facility] Comment on above: Performed By: #### U A #### [address] [address] Ketones Ql (U) Negative Normal NEGATIVE [place] Comment on above: Performed By: #### U A #### [address] [address] Leukocyte esterase Test strip Ql (U) MODERATE(2+) Abnormal NEGATIVE [place]/[facility] Comment on above: Performed By: #### U A #### [address] [address] Nitrite Ql (U) Negative Normal NEGATIVE [place]/[facility] Comment on above: Performed By: #### U A #### [address] [address] pH (Bld) 6.0 Normal 5.0 - 8.0 [place]/[facility] Comment on above: Performed By: #### U A #### [address] [address] Protein (U) [Mass/Vol] Negative Normal NEGATIVE [place]/Po [facility] Comment on above: Performed By: #### U A #### [address] [address] Specific gravity (U) [Rel density] 1.011 Normal 1.005 - 1.035 [place]/[facility] Comment on above: Performed By: #### U A #### [address] [address] Urobilinogen Qn (U) <2.0 Normal 0.0 - 1.9 [place] son/Po [facility] Comment on above: Performed By: #### U A #### [address] [address] URINE CULTURE,BACTERIALon URINE CULTURE,BACTERIAL PATIENT: SANDRA SCHMITZ LOCATION: [facility]#: [id number] : 47 AGE: SEX: F ORDERED BY: DARREN MELO SOURCE: URINE COLLECTED: 02/04/20 16:53 ANTIBIOTICS AT [facility].: RECEIVED : 02/05/20 00:18 SITE: R E Eileen U L T S URINE CULTURE,BACTERIAL FINAL 02/05/20 18:51 NO SIGNIFICANT GROWTH. Normal [place]/[facility] Comment on above: Performed By: #### L IPID #### [facility] [address] [place] [address] Urinalysison 02-04-2020 Appearance (U) Clear CLEAR [facility] [employer] Work Phone: Color (U) Yellow See Below [facility]ed[facility] [employer] Work Phone: Comment on above: Reference Range: STR AW,YELLOW Glucose Ql (U) Negative NEGATIVE [facility] [employer] Work Phone: Ketones Ql (U) Negative NEGATIVE [facility] [employer] Work Phone: Leukocyte esterase Test strip Ql (U) MODERATE(2+) Abnormal NEGATIVE [facility] [employer] Work Phone: pH (U) 6.0 [pH] 5.0 - 8.0 [facility] [employer] Work Phone: Protein (U) [Mass/Vol] Negative NEGATIVE [facility] services[facility]edE[facility] [employer] Work Phone: RBC (U) [#/Vol] Negative NEGATIVE [facility] Rule. Phone: Specific gravity (U) [Rel density] 1.011 See Below [facility] Rule. Phone: Comment on above: Reference Range: 1.0 05 - 1.035 Urinalysis Negative NEGATIVE [facility] Rule. Phone: Urinalysis <2.0 0.0 - 1.9 [facility]edE[facility] [employer] Work Phone: Urinalysis, Microscopicon Bacteria LM.HPF (Urine sed) [#/Area] 4+ Abnormal [facility] Work Phone: RBC (Bld) [#/Vol] NONE 0-5 [facility] Work Phone: Urinalysis, Microscopic 1 {/HPF} 0-5 [facility] Work Phone: Urinalysis, Microscopic 3 {/HPF} [facility] J[employer] Work Phone: MANAGER DENTAL - Office Visiton 01-12 MANAGER DENTAL - Office Visit Chief Complaint PT here for a PESSARY check from 10/21/2019 States she thinks she might have to change sizes. Tile Setter Apprentice Declined Bety Iverson CMA History of Present [...] Tablet; TAKE 1 TABLET DAILY Requested for: [id number]; Last Rx:[id number] Ordered Rx By: aRfael Frank III; Dispense: 90 Days ; #:90 [...] PM Vitals Vital Signs Recorded: 28Jan2020 01:21PM Ybcckyuu970 Gxeccjfsw41 Height5 ft 3 in Ptpjkn754 lb BMI Lahctiqijg96.07 BSA Calculated1.93 Physical Exam Constitutional: Alert and [...] [Ratio] 14.0 % Normal 11.5 - 14.5 [facility] Comment on above: Performed By: #### C BC #### [address] [address] Hematocrit (Bld) [Volume fraction] 45.0 % Normal 36.0 - 46.0 [facility] Comment on above: Performed By: #### C BC #### [address] [address] Hemoglobin (Bld) [Mass/Vol] 14.0 g/dL Normal 12.0 - 16.0 [facility] Comment on above: Performed By: #### C BC #### [address] [address] MCHC (RBC) [Mass/Vol] 31.1 g/dL Low 32.0 - 36.0 [facility] Comment on above: Performed By: #### C BC #### [address] [address] MCV (RBC) [Entitic vol] 93 fL Normal 80 - 100 [place]/[facility] Comment on above: Performed By: #### C BC #### [address] [address] Platelets (Bld) [#/Vol] 369 10*3/uL Normal 150 - 450 [place]/[facility] Comment on above: Performed By: #### C BC #### [address] [address] RBC (Bld) [#/Vol] 4.83 x10E12/L Normal 4.00 - 5.20 [place]/Po [facility] Comment on above: Performed By: #### C BC #### [address] [address] WBC (Bld) [#/Vol] 8.1 10*3/uL Normal 4.4 - 11.3 [place]/[facility] Comment on above: Performed By: #### C BC #### [address] [address] COMPREHENSIVE PANELon 2019 Albumin [Mass/Vol] 4.2 g/dL Normal 3.4 - 5.0 [place]/[facility] Comment on above: Performed By: #### C MP #### [address] [address] ALP [Catalytic activity/Vol] 58 U/L Normal 33 - 136 [place] Comment on above: Performed By: #### C MP #### [address] [address] ALT [Catalytic activity/Vol] 11 U/L Normal 7 - 45 [place] Comment on above: Result Comment: [place] ents treated with Sulfasalazine may generate falsely decreased results for ALT. Performed By: #### C MP #### [address] [address] Anion gap [Moles/Vol] 10 mmol/L Normal 10 - 20 [place]/Po [facility] Comment on above: Performed By: #### C MP #### [address] [address] AST [Catalytic activity/Vol] 15 U/L Normal 9 - 39 [place] Comment on above: Performed By: #### C MP #### [address] [address] Bilirubin [Mass/Vol] 0.4 mg/dL Normal 0.0 - 1.2 [place]/Po [facility] Comment on above: Performed By: #### C MP #### [address] [address] Calcium [Mass/Vol] 9.5 mg/dL Normal 8.6 - 10.3 [place]/[facility] Comment on above: Performed By: #### C MP #### [address] [address] Chloride [Moles/Vol] 104 mmol/L Normal 98 - 107 [place] n[place]/Po [facility] Comment on above: Performed By: #### C MP #### [address] [address] Creatinine [Mass/Vol] 0.63 mg/dL Normal 0.50 - 1.05 [place]/[facility] Comment on above: Performed By: #### C MP #### [address] [address] GFR- AM. >60 Normal >60 [place] [facility] Comment on above: Result Comment: CALC ULATIONS OF ESTIMATED GFR ARE PERFORMED USING THE MDRD STUDY EQUATION FOR THE IDMS-TRACEABLE CREATININE METHODS. CLIN CHEM 2007;53:766-72 Performed By: #### C MP #### [address] [address] GFR-NON AM. >60 Normal >60 [place]/[facility] Comment on above: Performed By: #### C MP #### [address] [address] Glucose [Mass/Vol] 87 mg/dL Normal 74 - 99 [place]/Po [facility] Comment on above: Performed By: #### C MP #### [address] [address] HCO3 (Bld) [Moles/Vol] 31 mmol/L Normal 21 - 32 [place]/[facility] Comment on above: Performed By: #### C MP #### [address] [address] Potassium [Moles/Vol] 4.4 mmol/L Normal 3.5 - 5.3 [place]/Po [facility] Comment on above: Performed By: #### C MP #### [address] [address] Protein [Mass/Vol] 7.6 g/dL Normal 6.4 - 8.2 [place]/[facility] Comment on above: Performed By: #### C MP #### [address] [address] Sodium [Moles/Vol] 141 mmol/L Normal 136 - 145 [place] on/Po [facility] Comment on above: Performed By: #### C MP #### [address] [address] Urea nitrogen [Mass/Vol] 13 mg/dL Normal 6 - 23 [place] Comment on above: Performed By: #### C MP #### [address] [address] [facility] 01-22-2020 Cholesterol [Mass/Vol] 248 mg/dL above hig h threshold 0 - 199 [facility] [employer] Work Phone: Comment on above: . AGE [...] dosing. Cholesterol in HDL [Mass/Vol] 51.9 mg/dL [facility] Rule. Phone: Comment on above: . AGE VERY LOW LOW N ORMAL HIGH 0-19 Y < 35 < 40 40-45 ---- 20-24 Y ---- < 40 >45 ---- >24 Y ---- < 40 40-60 >60. Hematologyon 01-22-2020 Hematocrit (Bld) [Volume fraction] 45.0 % See Below [facility] Rule. Phone: Comment on above: Reference Range: 36. 0 - 46.0 Hemoglobin (Bld) [Mass/Vol] 14.0 g/dL See Below [facility] Rule. Phone: Comment on above: Reference Range: 12. 0 - 16.0 MCV (RBC) [Entitic vol] 93 fL 80 - 100 [facility] [employer] Work Phone: Platelets (Bld) [#/Vol] 369 {x10E9/L} 150 - 450 [facility] Rule. Phone: RBC (Bld) [#/Vol] 4.83 {x10E12/L} See Below Wo [facility] Rule. Phone: Comment on above: Reference Range: 4.0 0 - 5.20 WBC (Bld) [#/Vol] 8.1 {x10E9/L} 4.4 - 11.3 [facility] [employer] Work Phone: LIPID PANEL NON-FASTINGon Cholesterol [Mass/Vol] 248 mg/dL High 0 - 199 [facility] Comment on above: Result Comment: . AGE [...] dosing. Performed By: #### L IPIN #### [address] [address] Cholesterol in HDL [Mass/Vol] 51.9 mg/dL Normal [place] Comment on above: Result Comment: . AGE VERY LOW LOW NORMAL HIGH 0-19 Y < 35 < 40 40-45 ---- 20-24 Y ---- < 40 >45 ---- >24 Y ---- < 40 40-60 >60 . Performed By: #### L IPIN #### [address] [address] Cholesterol.total/Chol esterol in HDL [Mass ratio] 4.8 {ratio} Normal [place]/[facility] Comment on above: Result Comment: REF VALUES DESIRABLE < 3.4 HIGH RISK > 5.0 Performed By: #### L IPIN #### [address] [address] NON-HDL CHOLESTEROL 196 mg/dL Normal Robert [facility] Comment on above: Result Comment: AGE DESIRABLE BORDERLINE HIGH HIGH VERY HIGH 0-19 Y 0 - 119 120 - 144 >/= 145 >/= 160 20-24 Y 0 - 149 150 - 189 >/= 190 ---- >24 Y 30 MG/DL ABOVE LDL CHOLESTEROL GOAL . Performed By: #### L IPIN #### [address] [address] Metabolic Panelon 01-22-2020 ALP [Catalytic activity/Vol] 58 U/L 33 - 136 [facility] Work Phone: Anion gap [Moles/Vol] 10 mmol/L 10 - 20 [facility] [employer] Work Phone: Bilirubin [Mass/Vol] 0.4 mg/dL 0.0 - 1.2 [facility] [employer] Work Phone: Calcium [Mass/Vol] 9.5 mg/dL 8.6 - 10.3 Women are-N [facility] Rule. Phone: Chloride [Moles/Vol] 104 mmol/L 98 - 107 [facility]re-[facility] [employer] Work Phone: CO2 [Moles/Vol] 31 mmol/L 21 - 32 [facility] -N [facility] [employer] Work Phone: Creatinine [Mass/Vol] 0.63 mg/dL See Below [facility] Rule. Phone: Comment on above: Reference Range: 0.5 0 - 1.05 Glucose [Mass/Vol] 87 mg/dL 74 - 99 [facility] are-N [facility] Rule. Phone: Potassium [Moles/Vol] 4.4 mmol/L 3.5 - 5.3 [facility] Rule. Phone: Protein [Mass/Vol] 7.6 g/dL 6.4 - 8.2 [facility] are-N [facility] Rule. Phone: Sodium [Moles/Vol] 141 mmol/L 136 - 145 [facility] are-N [facility] Rule. Phone: Urea nitrogen [Mass/Vol] 13 mg/dL 6 - 23 [facility] [employer] Work Phone: Otheron 01-22-2020 Albumin BCP dye [Mass/Vol] 4.2 g/dL 3.4 - 5.0 [facility] [employer] Work Phone: ALT With P-5'-P [Catalytic activity/Vol] 11 U/L 7 - 45 [facility] Rule. Phone: Comment on above: Patients treated wit h Sulfasalazine may generate falsely decreased results for ALT. AST With P-5'-P [Catalytic activity/Vol] 15 U/L 9 - 39 [employer] Phone: Cholesterol non HDL [Mass/Vol] 196 mg/dL [employer] Phone: Comment on above: AGE DESIRABLE BORDER LINE HIGH HIGH VERY HIGH 0-19 Y 0 - 119 120 - 144 >/= 145 >/= 160 20-24 Y 0 - 149 150 - 189 >/= 190 ---- >24 Y 30 MG/DL ABOVE LDL CHOLESTEROL GOAL. Cholesterol.total/Chol esterol in HDL [Mass ratio] 4.8 {ratio} [employer] Phone: Comment on above: REF VALUESDESIRABLE < 3.4HIGH RISK > 5.0 Erythrocyte distribution width (RBC) [Ratio] 14.0 % See Below [employer] Phone: Comment on above: Reference Range: 11. 5 - 14.5 MCHC (RBC) [Mass/Vol] 31.1 g/dL below low threshold See Below [employer] Phone: Comment on above: Reference Range: 32. 0 - 36.0 >60 >60 [employer] Phone: Comment on above: CALCULATIONS OF AARON MATED GFR ARE PERFORMED USING THE MDRD STUDY EQUATION FOR THE IDMS-TRACEABLE CREATININE METHODS. CLIN CHEM 2007;53:766-72 TSHon 01-22-2020 TSH Qn 3.22 m[IU]/L Normal 0.44 - 3.98 [facility] Comment on above: Result Comment: TSH testing is performed using different testing methodology at [facility] than at other [facility]. Direct result comparisons should only be made within the same method. Performed By: #### T [facility] #### [facility] [address] [place] [address] TSH - Thyroid Stimulating Ho rmone, Serumon 01-22-2020 TSH Qn 3.22 {mIU/L} See Below [employer] Phone: Comment on above: Reference Range: 0.4 4 - 3.98 TSH testing is performed using different testing methodology at [facility] than at other [facility]. Direct result comparisons should only be made within the same method. MANAGER DENTAL - Office Visiton MANAGER DENTAL - Office Visit Chief Complaint 3 month [...] Vital Signs Recorded: 21Oct2019 01:20PMRecorded: 21Oct2019 01:19PM Gfpxfylq199 Zxuoogyfk01 Byutrs669 lb BMI Xnxdpjtonq94.54 BSA Calculated1.91 Physical Exam Constitutional: Alert and [...] [Ratio] 14.2 % Normal 11.5 - 14.5 [facility] Comment on above: Performed By: #### C BC #### [address] [address] Hematocrit (Bld) [Volume fraction] 45.4 % Normal 36.0 - 46.0 [facility] Comment on above: Performed By: #### C BC #### [facility] [address] [place] [address] Hemoglobin (Bld) [Mass/Vol] 13.9 g/dL Normal 12.0 - 16.0 [facility] Comment on above: Performed By: #### C BC #### [address] [address] MCHC (RBC) [Mass/Vol] 30.6 g/dL Low 32.0 - 36.0 [place]/Po [facility] Comment on above: Performed By: #### C BC #### [address] [address] MCV (RBC) [Entitic vol] 92 fL Normal 80 - 100 [place]/[facility] Comment on above: Performed By: #### C BC #### [address] [address] Platelets (Bld) [#/Vol] 349 10*3/uL Normal 150 - 450 [place]/[facility] Comment on above: Performed By: #### C BC #### [address] [address] RBC (Bld) [#/Vol] 4.91 x10E12/L Normal 4.00 - 5.20 [place] inson/Po [facility] Comment on above: Performed By: #### C BC #### [address] [address] WBC (Bld) [#/Vol] 8.0 10*3/uL Normal 4.4 - 11.3 [place]/[facility] Comment on above: Performed By: #### C BC #### [address] [address] COMPREHENSIVE PANELon 2019 Albumin [Mass/Vol] 3.9 g/dL Normal 3.4 - 5.0 [place]/Po [facility] Comment on above: Performed By: #### C MP #### [address] [address] ALP [Catalytic activity/Vol] 66 U/L Normal 33 - 136 [place] Comment on above: Performed By: #### C MP #### [address] [address] ALT [Catalytic activity/Vol] 10 U/L Normal 7 - 45 [place] Comment on above: Result Comment: [place] ents treated with Sulfasalazine may generate falsely decreased results for ALT. Performed By: #### C MP #### [address] [address] Anion gap [Moles/Vol] 10 mmol/L Normal 10 - 20 [place] inson/Po [facility] Comment on above: Performed By: #### C MP #### [address] [address] AST [Catalytic activity/Vol] 14 U/L Normal 9 - 39 [place] Comment on above: Performed By: #### C MP #### [address] [address] Bilirubin [Mass/Vol] 0.5 mg/dL Normal 0.0 - 1.2 [place] nson/Po [facility] Comment on above: Performed By: #### C MP #### [place] [address] Calcium [Mass/Vol] 9.1 mg/dL Normal 8.6 - 10.3 [place]/Po [facility] Comment on above: Performed By: #### C MP #### [place] [address] Chloride [Moles/Vol] 106 mmol/L Normal 98 - 107 [place] nson/Po [facility] Comment on above: Performed By: #### C MP #### [address] [address] Creatinine [Mass/Vol] 0.59 mg/dL Normal 0.50 - 1.05 [place]/Po [facility] Comment on above: Performed By: #### C MP #### [address] [address] GFR- AM. >60 Normal >60 [place]/ [facility] Comment on above: Result Comment: CALC ULATIONS OF ESTIMATED GFR ARE PERFORMED USING THE MDRD STUDY EQUATION FOR THE IDMS-TRACEABLE CREATININE METHODS. CLIN CHEM 2007;53:766-72 Performed By: #### C MP #### [address] [address] GFR-NON AM. >60 Normal >60 Robert son/Po [facility] Comment on above: Performed By: #### C MP #### [address] [address] Glucose [Mass/Vol] 75 mg/dL Normal 74 - 99 [place] on/Po [facility] Comment on above: Performed By: #### C MP #### [address] [address] HCO3 (Bld) [Moles/Vol] 29 mmol/L Normal 21 - 32 [place]/Po [facility] Comment on above: Performed By: #### C MP #### [address] [address] Potassium [Moles/Vol] 4.2 mmol/L Normal 3.5 - 5.3 [place] inson/Po [facility] Comment on above: Performed By: #### C MP #### [address] [address] Protein [Mass/Vol] 6.9 g/dL Normal 6.4 - 8.2 [place] on/Po [facility] Comment on above: Performed By: #### C MP #### [address] [address] Sodium [Moles/Vol] 141 mmol/L Normal 136 - 145 [place] on/Po [facility] Comment on above: Performed By: #### C MP #### [address] [address] Urea nitrogen [Mass/Vol] 17 mg/dL Normal 6 - 23 [place]/[facility] Comment on above: Performed By: #### C MP #### [address] [address] LIPID PANEL (CORONARY RISK 2 )on 07-22-2019 Cholesterol [Mass/Vol] 243 mg/dL High 0 - 199 [place]/Po [facility] Comment on above: Result Comment: . [...] dosing. Performed By: #### L IPID #### [address] [address] Cholesterol in HDL [Mass/Vol] 47.0 mg/dL Normal [facility] Comment on above: Result Comment: . AGE VERY LOW LOW NORMAL HIGH 0-19 Y < 35 < 40 40-45 ---- 20-24 Y ---- < 40 >45 ---- >24 Y ---- < 40 40-60 >60 . Performed By: #### L IPID #### [address] [address] Cholesterol in LDL [Mass/Vol] 151 mg/dL High 0 - 99 [facility] Comment on above: Result Comment: . NEAR BORD AGE DESIRABLE OPTIMAL HIGH HIGH VERY HIGH 0-19 Y 0 - 109 --- 110-129 >/= 130 ---- 20-24 Y 0 - 119 --- 120-159 >/= 160 ---- >24 Y 0 - 99 100-129 130-159 160-189 >/=190 . Performed By: #### L IPID #### [address] [address] Cholesterol in VLDL [Mass/Vol] 45 mg/dL High 0 - 40 [facility] Comment on above: Performed By: #### L IPID #### [address] [address] Cholesterol.total/Chol esterol in HDL [Mass ratio] 5.2 {ratio} Abnormal [facility] Comment on above: Result Comment: REF VALUES DESIRABLE < 3.4 HIGH RISK > 5.0 Performed By: #### L IPID #### [address] [address] NON-HDL CHOLESTEROL 196 mg/dL Normal Robert son/[facility] Comment on above: Result Comment: AGE DESIRABLE BORDERLINE HIGH HIGH VERY HIGH 0-19 Y 0 - 119 120 - 144 >/= 145 >/= 160 20-24 Y 0 - 149 150 - 189 >/= 190 ---- >24 Y 30 MG/DL ABOVE LDL CHOLESTEROL GOAL . Performed By: #### L IPID #### [facility] [address] [place] [address] Triglyceride [Mass/Vol] 225 mg/dL High 0 - 149 [place] Comment on above: Result Comment: . AGE [...] dosing. Performed By: #### L IPID #### [address] [address] MANAGER DENTAL - Office Visiton 07-12 MANAGER DENTAL - Office Visit Chief Complaint Pessary Follow Up History of Present Illness here for recheck of pessary, no bleeding. moving to [place] Review of Systems Constitutional: no fever, no [...] Hypothyroidism; ZAK = N; Verified Transmission to [facility]; Last Updated By: [employer]; 03/18/2019 8:27:37 AM Aspirin Adult Low Dose [...] AM Vitals Vital Signs Recorded: 22Jul2019 11:25AM Omacqrva105 Ugzdhlroo25 Tjxkzz580 lb Physical Exam Constitutional: Alert and in [...] Jul 22 2019 11:50AM EST (Author) Normal [facility] TSHon 07-22-2019 TSH Qn 2.12 m[IU]/L Normal 0.44 - 3.98 [place]/[facility] Comment on above: Result Comment: Note new pediatric reference range as of 07/17/2019. TSH testing is performed using different testing methodology at [facility] than at other [facility]. Direct result comparisons should only be made within the same method. Performed By: #### T SH2 #### [facility] [address] [place] [address] VITAMIN D, 25-HYDROXYon 07-12 VITAMIN D, 25-HYDROXY 31 ng/mL Normal Ron[place] ins/[facility] Comment on above: Result Comment: . DEFICIENCY: < 20 NG/ML INSUFFICIENCY: 20-29 NG/ML SUFFICIENCY: 30-100 NG/ML THIS ASSAY ACCURATELY QUANTIFIES THE SUM OF VITAMIN D3, 25-HYDROXY AND VIT D2,25-HYDROXY. Performed By: #### V TDOH #### [facility] [address] [place] [address] CBCon 01-22-2019 Erythrocyte distribution width (RBC) [Ratio] 14.8 % Normal 11.4-16.0 [facility] Hematocrit (Bld) [Volume fraction] 42.5 % Normal 34.7-44.9 [facility] Hemoglobin (Bld) [Mass/Vol] 14.1 g/dL Normal 11.3-15.6 [facility] MCH (RBC) [Entitic mass] 29.1 pg Normal 26.5-33.0 [facility] MCHC (RBC) [Mass/Vol] 33.1 g/dL Normal 32.6-36.0 [facility] MCV (RBC) [Entitic vol] 87.7 fL Normal 80.0-100.0 [facility] Mean Plt Vol 8.8 fL Normal 7.2-10.3 [facility] Platelets (Bld) [#/Vol] 362 10*3/uL Normal 144-400 [facility] RBC (Bld) [#/Vol] 4.84 x10E12/L Normal 3.78-5.45 [facility] WBC (Bld) [#/Vol] 7.4 10*3/uL Normal 3.5-11.5 [facility] CMPon 01-22-2019 Albumin [Mass/Vol] 4.0 g/dL Normal 3.5-5.0 [facility] Alk Phos 62 IU/L Normal 32-91 [facility] ALT [Catalytic activity/Vol] 12 U/L Low 14-63 [facility] Anion gap [Moles/Vol] 11.0 mmol/L Normal 5.0-19.0 [facility] AST [Catalytic activity/Vol] 18 U/L Normal 15-41 [facility] Bilirubin [Mass/Vol] 0.5 mg/dL Normal 0.3-1.2 [facility] Bun/CretRatio 18.1 [facility] Calcium [Mass/Vol] 9.5 mg/dL Normal 8.1-10.1 [facility] Chloride [Moles/Vol] 104 mmol/L Normal 98-107 [facility] CO2 [Moles/Vol] 25 mmol/L Normal 22-32 [facility] Creatinine [Mass/Vol] 0.72 mg/dL Normal 0.60-1.30 [facility] Glucose [Mass/Vol] 84 mg/dL Normal 70-100 [facility] Osmolality-Calc 279 mOsm/kg [facility] Potassium [Moles/Vol] 4.0 mmol/L Normal 3.4-5.1 [facility] Protein [Mass/Vol] 7.3 g/dL Normal 6.5-8.1 [facility] Sodium [Moles/Vol] 140 mmol/L Normal 136-144 [facility] Urea nitrogen [Mass/Vol] 13 mg/dL Normal 8-26 [facility] LDL Calculatedon 01-22-2019 Cholesterol in LDL [Mass/Vol] 124 mg/dL [facility] Comment on above: Result Comment: Calculated LDL is unreliable when Triglyceride result is greater than 400. TSHon 01-22-2019 TSH Qn 2.18 uIU/mL Normal 0.34-5.60 [facility] Vit D 25OHon 01-22-2019 Vit D 25-OH 22 ng/mL [facility] Comment on above: Result Comment: Deficient: Less than 20 ng/mL Insufficient: 20 to less than 30 ng/mL Sufficient: 30 to 100 ng/mL Upper Safety Limit: Greater than 100 ng/mL ZLipidon 01-22-2019 Cholesterol [Mass/Vol] 219 mg/dL High 0-200 [facility] Cholesterol in HDL [Mass/Vol] 51 mg/dL [facility] Triglyceride [Mass/Vol] 222 mg/dL High 0-149 [facility] JOSÉ ANTONIO/MAMMO SCRN DIGIT BILon 0 12-06-2018 Bilirubin [Mass/Vol] Patient Name: SANDRA SCHMITZ STUDY: JOSÉ ANTONIO/MAMMO SCRN DIGIT MADDI; 12/05/2018 12:40 pm INDICATION: Screening. COMPARISON: 08/22/2017 ACCESSION NUMBER(S): [id number] ORDERING CLINICIAN: MANE SOLIS FINDINGS: The breasts are almost entirely fatty. No suspicious masses or calcifications are identified. This study was interpreted with CAD. Markers: [place]- skin lesion; triangle- palpable abnormality IMPRESSION: No mammographic evidence of malignancy. BI-RADS CATEGORY: Category: 1 - Negative. Recommendation: Continued age appropriate screening mammography For any future breast imaging appointments, please call [phone] Dictated by: Electronically Signed by: Isiah Dacosta Electronically Signed on: 12/06/2018 4:18 PM [facility] NUC/HIDA W/ CCKon 11-08-2018 NUC/HIDA W/ CCK Patient Name: SANDRA SCHMITZ STUDY: NUC/HIDA W/ CCK; 11/08/2018 3:09 pm INDICATION: RUQ PAIN. COMPARISON: Ultrasound of the abdomen 10/21/2018, CT of the abdomen 10/31/2018 ACCESSION NUMBER(S): [id number] ORDERING CLINICIAN: LC MCCARTHY TECHNIQUE: DIVISION OF [...] as stated. This study was interpreted at [facility], [place], [place]. Dictated by: Electronically Signed by: Moises Macdonald Electronically Signed on: 11/08/2018 3:40 PM [facility] JOSÉ ANTONIO/CT ABD/PELVIS WITHon JOSÉ ANTONIO/CT ABD/PELVIS WITH Patient Name: SANDRA SCHMITZ STUDY: Unremarkable. JOSÉ ANTONIO/CT ABD/PELVIS WITH; 10/31/2018 12:26 pm INDICATION: PAIN. COMPARISON: 08/22/2017 ACCESSION NUMBER(S): [id number] ORDERING CLINICIAN: LC MCCARTHY TECHNIQUE: CT of [...] Creatinine [Mass/Vol] 0.64 mg/dL Normal 0.60-1.30 [facility] RUL/ABDOMEN LIMITEDon 2018 RUL/ABDOMEN LIMITED Patient Name: SANDRA SCHMITZ STUDY: RUL/ABDOMEN LIMITED; 10/21/2018 9:19 am INDICATION: RUQ ABD PAIN--EAL GB. COMPARISON: None. ACCESSION NUMBER(S): [id number] ORDERING CLINICIAN: LC MCCARTHY TECHNIQUE: Multiple images [...] Electronically Signed on: 10/21/2018 10:09 AM [facility] CBCon 08-08-2018 Erythrocyte distribution width (RBC) [Ratio] 15.1 % Normal 11.4-16.0 [facility] Hematocrit (Bld) [Volume fraction] 42.3 % Normal 34.7-44.9 [facility] Hemoglobin (Bld) [Mass/Vol] 13.9 g/dL Normal 11.3-15.6 [facility] MCH (RBC) [Entitic mass] 28.7 pg Normal 26.5-33.0 [facility] MCHC (RBC) [Mass/Vol] 32.8 g/dL Normal 32.6-36.0 [facility] MCV (RBC) [Entitic vol] 87.7 fL Normal 80.0-100.0 [facility] Mean Plt Vol 8.7 fL Normal 7.2-10.3 [facility] Platelets (Bld) [#/Vol] 367 10*3/uL Normal 144-400 [facility] RBC (Bld) [#/Vol] 4.82 x10E12/L Normal 3.78-5.45 [facility] WBC (Bld) [#/Vol] 7.4 10*3/uL Normal 3.5-11.5 [facility] CMPon 08-08-2018 Albumin [Mass/Vol] 4.0 g/dL Normal 3.5-5.0 [facility] Alk Phos 56 IU/L Normal 32-91 [facility] ALT [Catalytic activity/Vol] 12 U/L Low 14-63 [facility] Anion gap [Moles/Vol] 12.0 mmol/L Normal 5.0-19.0 [facility] AST [Catalytic activity/Vol] 22 U/L Normal 15-41 [facility] Bilirubin [Mass/Vol] 0.3 mg/dL Normal 0.3-1.2 [facility] Bun/CretRatio 20.2 [facility] Calcium [Mass/Vol] 9.1 mg/dL Normal 8.1-10.1 [facility] Chloride [Moles/Vol] 102 mmol/L Normal 98-107 [facility] CO2 [Moles/Vol] 27 mmol/L Normal 22-32 [facility] Creatinine [Mass/Vol] 0.84 mg/dL Normal 0.60-1.30 [facility] Glucose [Mass/Vol] 80 mg/dL Normal 70-100 [place] [facility] Osmolality-Calc 282 mOsm/kg [facility] Potassium [Moles/Vol] 3.9 mmol/L Normal 3.4-5.1 [facility] Protein [Mass/Vol] 7.3 g/dL Normal 6.5-8.1 [facility] Sodium [Moles/Vol] 141 mmol/L Normal 136-144 [facility] Urea nitrogen [Mass/Vol] 17 mg/dL Normal 8-26 [facility] LDL Calculatedon 08-08-2018 Cholesterol in LDL [Mass/Vol] 144 mg/dL [facility] Comment on above: Result Comment: Calculated LDL is unreliable when Triglyceride result is greater than 400. ZLipidon 08-08-2018 Cholesterol [Mass/Vol] 237 mg/dL High 0-200 [facility] Cholesterol in HDL [Mass/Vol] 49 mg/dL [facility] Triglyceride [Mass/Vol] 222 mg/dL High 0-149 [facility] Vital Signs Date Time Vital Sign Value Performing Clinician Facility 11-13-2024 23:09-0400 Body temperature 98 [degF] Dr. Mandeep Houser DO Work Phone: [facility] 11-13-2024 23:09-0400 Diastolic blood pressure 63 mm[Hg] Dr. Mandeep Houser DO Work Phone: [facility] 11-13-2024 23:09-0400 Heart rate 65 /min Dr. Mandeep Houser DO Work Phone: [facility] 11-13-2024 23:09-0400 Respiratory rate 17 /min Dr. Mandeep Houser DO Work Phone: [facility] 11-13-2024 23:09-0400 SaO2% (BldA) [Mass fraction] 100 % Dr. Mandeep Houser DO Work Phone: [facility] 11-13-2024 23:09-0400 Systolic blood pressure 101 mm[Hg] Dr. Mandeep Houser DO Work Phone: [facility] 11-13-2024 17:55-0400 Body height 160.[address] Mandeep Houser DO Work Phone: [facility] 11-13-2024 17:55-0400 Body mass index (BMI) [Ratio] 35.3 kg/m2 Dr. Mandeep Houser DO Work Phone: [facility] 11-13-2024 17:55-0400 Body weight 90.[address] Mandeep Houser DO Work Phone: [facility] 11-03-2024 15:12-0400 Body height 162.6 cm Morenita Hill APRN.CNP Work Phone: [facility] 11-03-2024 15:12-0400 Body mass index (BMI) [Ratio] 32.62 kg/m2 Morenita Hill ATHLETIC SCOUT.GEOPHYSICS SCIENTIST Work Phone: [facility] 11-03-2024 15:12-0400 Body weight 86.2 kg Morenita Hill ATHLETIC SCOUT.GEOPHYSICS SCIENTIST Work Phone: [facility] 11-03-2024 15:12-0400 Diastolic blood pressure 71 mm[Hg] Morenita Hill ATHLETIC SCOUT.GEOPHYSICS SCIENTIST Work Phone: [facility] 11-03-2024 15:12-0400 Heart rate 70 /min Morenita Hill ATHLETIC SCOUT.GEOPHYSICS SCIENTIST Work Phone: [facility] 11-03-2024 15:12-0400 SaO2% (BldA) [Mass fraction] 93 % Morenita Hill ATHLETIC SCOUT.GEOPHYSICS SCIENTIST Work Phone: [facility] 11-03-2024 15:12-0400 Systolic blood pressure 119 mm[Hg] Morenita Hill ATHLETIC SCOUT.GEOPHYSICS SCIENTIST Work Phone: [facility] 11-03-2024 14:05-0400 Body height 162.6 cm Pili Wells MD Work Phone: [facility] 11-03-2024 14:05-0400 Body mass index (BMI) [Ratio] 33.34 kg/m2 Pili Wells MD Work Phone: [facility] 11-03-2024 14:05-0400 Body weight 88.1 kg Pili Wells MD Work Phone: [facility] 11-03-2024 14:05-0400 Diastolic blood pressure 85 mm[Hg] Pili Wells MD Work Phone: [facility] 11-03-2024 14:05-0400 Heart rate 67 /min Pili Wells MD Work Phone: [facility] 11-03-2024 14:05-0400 Systolic blood pressure 126 mm[Hg] Pili Wells MD Work Phone: [facility] 07-21-2024 15:55-0400 Body mass index (BMI) [Ratio] 34.19 kg/m2 Mandeep Houser DO Work Phone: [facility] 07-21-2024 15:55-0400 Body temperature 97 [degF] Mandeep Houser DO Work Phone: [facility] 07-21-2024 15:55-0400 Body weight 87.54 kg Mandeep Houser DO Work Phone: [facility] 07-21-2024 15:55-0400 Diastolic blood pressure 82 mm[Hg] Mandeep Houser DO Work Phone: [facility] 07-21-2024 15:55-0400 Heart rate 76 /min Mandeep Houser DO Work Phone: [facility] 07-21-2024 15:55-0400 Respiratory rate 20 /min Mandeep Houser DO Work Phone: [facility] 07-21-2024 15:55-0400 Systolic blood pressure 146 mm[Hg] Mandeep Houser DO Work Phone: [facility] 07-08-2024 14:47-0500 Body mass index (BMI) [Ratio] 32.59 kg/m2 Mandeep Houser DO Work Phone: [facility] 07-08-2024 14:47-0500 Body weight 83.46 kg Mandeep Houser DO Work Phone: [facility] 07-08-2024 14:47-0500 Diastolic blood pressure 70 mm[Hg] Mandeep Houser DO Work Phone: [facility] 07-08-2024 14:47-0500 Heart rate 66 /min Mandeep Houser DO Work Phone: [facility] 07-08-2024 14:47-0500 SaO2% (BldA) [Mass fraction] 96 % Mandeep Houser DO Work Phone: [facility] 07-08-2024 14:47-0500 Systolic blood pressure 110 mm[Hg] Mandeep Houser DO Work Phone: [facility] 02-07-2024 14:13-0400 Body mass index (BMI) [Ratio] 34.84 kg/m2 Angel Shawboro DO Work Phone: [facility] 02-07-2024 14:13-0400 Body weight 89.2 kg Angel [place] DO Work Phone: [facility] 02-07-2024 14:13-0400 Diastolic blood pressure 78 mm[Hg] Angel [place] DO Work Phone: [facility] 02-07-2024 14:13-0400 Heart rate 83 /min Angel [place] DO Work Phone: [facility] 02-07-2024 14:13-0400 SaO2% (BldA) [Mass fraction] 95 % Angel [place] DO Work Phone: [facility] 02-07-2024 14:13-0400 Systolic blood pressure 132 mm[Hg] Angel [place] DO Work Phone: [facility] 01-15-2024 12:54-0400 Diastolic blood pressure 67 mm[Hg] Pili Wells MD Work Phone: [facility] 01-15-2024 12:54-0400 Heart rate 65 /min Pili Wells MD Work Phone: [facility] 01-15-2024 12:54-0400 Systolic blood pressure 104 mm[Hg] Pili Wells MD Work Phone: [facility] 01-15-2024 12:48-0400 Body mass index (BMI) [Ratio] 34.44 kg/m2 Pili Wells MD Work Phone: [facility] 01-15-2024 12:48-0400 Body weight 88.2 kg Pili Wells MD Work Phone: [facility] 01-15-2024 12:48-0400 SaO2% (BldA) [Mass fraction] 96 % Pili Wells MD Work Phone: [facility] Comment on above: 11-01-2023 09:13-0400 Body height 160 cm Mercedes Vera ATHLETIC SCOUT.GEOPHYSICS SCIENTIST Work Phone: [facility] 11-01-2023 09:13-0400 Body mass index (BMI) [Ratio] 34.01 kg/m2 Mercedes Vera ATHLETIC SCOUT.GEOPHYSICS SCIENTIST Work Phone: [facility] 11-01-2023 09:13-0400 Body weight 87.09 kg Mercedes Vera ATHLETIC SCOUT.GEOPHYSICS SCIENTIST Work Phone: [facility] 11-01-2023 09:13-0400 Diastolic blood pressure 79 mm[Hg] Mercedes Vera ATHLETIC SCOUT.GEOPHYSICS SCIENTIST Work Phone: [facility] 11-01-2023 09:13-0400 Heart rate 68 /min Mercedes Vera ATHLETIC SCOUT.GEOPHYSICS SCIENTIST Work Phone: [facility] 11-01-2023 09:13-0400 Systolic blood pressure 125 mm[Hg] Mercedes Vera ATHLETIC SCOUT.GEOPHYSICS SCIENTIST Work Phone: [facility] 10-31-2023 15:08-0400 Body mass index (BMI) [Ratio] 34.37 kg/m2 Mandeep Houser DO Work Phone: [facility] 10-31-2023 15:08-0400 Body temperature 96.4 [degF] Mandeep Houser DO Work Phone: [facility] 10-31-2023 15:08-0400 Body weight 88 kg Mandeep Houser DO Work Phone: [facility] 10-31-2023 15:08-0400 Diastolic blood pressure 80 mm[Hg] Mandeep Houser DO Work Phone: [facility] 10-31-2023 15:08-0400 Heart rate 76 /min Mandeep Houser DO Work Phone: [facility] 10-31-2023 15:08-0400 Respiratory rate 20 /min Mandeep Houser DO Work Phone: [facility] 10-31-2023 15:08-0400 Systolic blood pressure 150 mm[Hg] Mandeep Houser DO Work Phone: [facility] 10-15-2023 11:41-0400 Body mass index (BMI) [Ratio] 34.4 kg/m2 Rupali Nascimento ATHLETIC SCOUT.GEOPHYSICS SCIENTIST Work Phone: [facility] 10-15-2023 11:41-0400 Body weight 88.09 kg Rupali Nascimento ATHLETIC SCOUT.GEOPHYSICS SCIENTIST Work Phone: [facility] 10-15-2023 11:41-0400 Diastolic blood pressure 68 mm[Hg] Rupali Nascimento ATHLETIC SCOUT.GEOPHYSICS SCIENTIST Work Phone: [facility] 10-15-2023 11:41-0400 Heart rate 68 /min Rupali Nascimento ATHLETIC SCOUT.GEOPHYSICS SCIENTIST Work Phone: [facility] 10-15-2023 11:41-0400 Respiratory rate 14 /min Rupali Nascimento ATHLETIC SCOUT.GEOPHYSICS SCIENTIST Work Phone: [facility] 10-15-2023 11:41-0400 SaO2% (BldA) [Mass fraction] 94 % Rupali Nascimento ATHLETIC SCOUT.GEOPHYSICS SCIENTIST Work Phone: [facility] 10-15-2023 11:41-0400 Systolic blood pressure 130 mm[Hg] Rupali Nascimento ATHLETIC SCOUT.GEOPHYSICS SCIENTIST Work Phone: [facility] 10-01-2023 12:22-0400 Body mass index (BMI) [Ratio] 34.15 kg/m2 Alejandrina Yasir ATHLETIC SCOUT.GEOPHYSICS SCIENTIST Work Phone: [facility] 10-01-2023 12:22-0400 Body temperature 97.11 [degF] Alejandrina Yasir ATHLETIC SCOUT.GEOPHYSICS SCIENTIST Work Phone: [facility] 10-01-2023 12:22-0400 Body weight 87.45 kg Alejandrina Yasir ATHLETIC SCOUT.GEOPHYSICS SCIENTIST Work Phone: [facility] 10-01-2023 12:22-0400 Diastolic blood pressure 84 mm[Hg] Alejandrina Yasir ATHLETIC SCOUT.GEOPHYSICS SCIENTIST Work Phone: [facility] 10-01-2023 12:22-0400 Heart rate 80 /min Alejandrina Yasir ATHLETIC SCOUT.GEOPHYSICS SCIENTIST Work Phone: [facility] 10-01-2023 12:22-0400 Respiratory rate 16 /min Alejandrina Yasir ATHLETIC SCOUT.GEOPHYSICS SCIENTIST Work Phone: [facility] 10-01-2023 12:22-0400 SaO2% (BldA) [Mass fraction] 95 % Alejandrina Yasir ATHLETIC SCOUT.GEOPHYSICS SCIENTIST Work Phone: [facility] 10-01-2023 12:22-0400 Systolic blood pressure 118 mm[Hg] Alejandrina Yasir ATHLETIC SCOUT.GEOPHYSICS SCIENTIST Work Phone: [facility] 09-13-2023 11:04-0400 Body mass index (BMI) [Ratio] 34.12 kg/m2 Alejandrina Yasir ATHLETIC SCOUT.GEOPHYSICS SCIENTIST Work Phone: [facility] 09-13-2023 11:04-0400 Body weight 87.36 kg Alejandrina Yasir ATHLETIC SCOUT.GEOPHYSICS SCIENTIST Work Phone: [facility] 09-13-2023 11:04-0400 Diastolic blood pressure 80 mm[Hg] Alejandrina Yasir ATHLETIC SCOUT.GEOPHYSICS SCIENTIST Work Phone: [facility] 09-13-2023 11:04-0400 Heart rate 73 /min Alejandrina Yasir ATHLETIC SCOUT.GEOPHYSICS SCIENTIST Work Phone: [facility] 09-13-2023 11:04-0400 Respiratory rate 16 /min Alejandrina Yasir ATHLETIC SCOUT.GEOPHYSICS SCIENTIST Work Phone: [facility] 09-13-2023 11:04-0400 SaO2% (BldA) [Mass fraction] 94 % Alejandrina Yasir ATHLETIC SCOUT.GEOPHYSICS SCIENTIST Work Phone: [facility] 09-13-2023 11:04-0400 Systolic blood pressure 122 mm[Hg] Alejandrina Yasir ATHLETIC SCOUT.GEOPHYSICS SCIENTIST Work Phone: [facility] 09-05-2023 10:51-0400 Body height 160 cm Thuy Aguirre APRN.GEOPHYSICS SCIENTIST Work Phone: [facility] 09-05-2023 10:51-0400 Body mass index (BMI) [Ratio] 34.05 kg/m2 Tuhy Aguirre ATHLETIC SCOUT.GEOPHYSICS SCIENTIST Work Phone: [facility] 09-05-2023 10:51-0400 Body weight 87.2 kg Thuy Aguirre ATHLETIC SCOUT.GEOPHYSICS SCIENTIST Work Phone: [facility] 09-05-2023 10:51-0400 Diastolic blood pressure 84 mm[Hg] Thuy Aguirre ATHLETIC SCOUT.GEOPHYSICS SCIENTIST Work Phone: [facility] 09-05-2023 10:51-0400 Heart rate 84 /min Thuy Aguirre ATHLETIC SCOUT.GEOPHYSICS SCIENTIST Work Phone: [facility] 09-05-2023 10:51-0400 SaO2% (BldA) [Mass fraction] 97 % Thuy Aguirre ATHLETIC SCOUT.GEOPHYSICS SCIENTIST Work Phone: [facility] 09-05-2023 10:51-0400 Systolic blood pressure 128 mm[Hg] Thuy Aguirre ATHLETIC SCOUT.GEOPHYSICS SCIENTIST Work Phone: [facility] 08-29-2023 15:37-0400 Body mass index (BMI) [Ratio] 33.6 kg/m2 [facility] 08-29-2023 15:17-0400 Body height 160.02 cm [facility] [place] 08-29-2023 15:17-0400 Body weight 86.18 kg [facility] [place] 08-29-2023 14:28-0400 Diastolic blood pressure 82 mm[Hg] [facility] 08-29-2023 14:28-0400 Heart rate 91 /min [facility] [place] 08-29-2023 14:28-0400 SaO2% (BldA) [Mass fraction] 95 % [facility] 08-29-2023 14:28-0400 Systolic blood pressure 125 mm[Hg] [facility] 08-22-2023 10:27-0400 Body temperature 96.91 [degF] Alejandrina Harvey ATHLETIC SCOUT.GEOPHYSICS SCIENTIST Work Phone: [facility] 08-22-2023 10:27-0400 Body weight 87 kg Alejandrina Waldenman ATHLETIC SCOUT.GEOPHYSICS SCIENTIST Work Phone: [facility] 08-22-2023 10:27-0400 Diastolic blood pressure 84 mm[Hg] Alejandrina Waldenman ATHLETIC SCOUT.GEOPHYSICS SCIENTIST Work Phone: [facility] 08-22-2023 10:27-0400 Heart rate 76 /min Alejandrina Waldenman ATHLETIC SCOUT.GEOPHYSICS SCIENTIST Work Phone: [facility] 08-22-2023 10:27-0400 SaO2% (BldA) [Mass fraction] 95 % Alejandrina Waldenman ATHLETIC SCOUT.GEOPHYSICS SCIENTIST Work Phone: [facility] 08-22-2023 10:27-0400 Systolic blood pressure 122 mm[Hg] Alejandrina Waldenman ATHLETIC SCOUT.GEOPHYSICS SCIENTIST Work Phone: [facility] 08-07-2023 14:44-0400 Body height 160 cm Dilcia Bonilla MD Work Phone: [facility] 08-07-2023 14:44-0400 Body weight 86.59 kg Dilcia Bonilla MD Work Phone: [facility] 08-07-2023 14:44-0400 Diastolic blood pressure 82 mm[Hg] Dilcia Bonilla MD Work Phone: [facility] 08-07-2023 14:44-0400 Heart rate 91 /min Dilcia Bonilla MD Work Phone: [facility] 08-07-2023 14:44-0400 SaO2% (BldA) [Mass fraction] 95 % Dilcia Bonilla MD Work Phone: [facility] 08-07-2023 14:44-0400 Systolic blood pressure 125 mm[Hg] Dilcia Bonilla MD Work Phone: [facility] 07-24-2023 13:42-0400 Body temperature 97 [degF] Mandeep Houser DO Work Phone: [facility] 07-24-2023 13:42-0400 Body weight 87.54 kg Mandeep Houser DO Work Phone: [facility] 07-24-2023 13:42-0400 Diastolic blood pressure 80 mm[Hg] Mandeep Houser DO Work Phone: [facility] 07-24-2023 13:42-0400 Heart rate 80 /min Mandeep Houser DO Work Phone: [facility] 07-24-2023 13:42-0400 Respiratory rate 20 /min Mandeep Houser DO Work Phone: [facility] 07-24-2023 13:42-0400 Systolic blood pressure 120 mm[Hg] Mandeep Houser DO Work Phone: [facility] 10-14-2022 14:12-0400 Body temperature 99.81 [degF] Shanell Older ATHLETIC SCOUT.GEOPHYSICS SCIENTIST Work Phone: [facility] 10-14-2022 14:12-0400 Body weight 88.91 kg Shanell Older ATHLETIC SCOUT.GEOPHYSICS SCIENTIST Work Phone: [facility] 10-14-2022 14:12-0400 Diastolic blood pressure 78 mm[Hg] Shanell Older ATHLETIC SCOUT.GEOPHYSICS SCIENTIST Work Phone: [facility] 10-14-2022 14:12-0400 Heart rate 87 /min Shanell Older ATHLETIC SCOUT.GEOPHYSICS SCIENTIST Work Phone: [facility] 10-14-2022 14:12-0400 Respiratory rate 22 /min Shanell Older ATHLETIC SCOUT.GEOPHYSICS SCIENTIST Work Phone: [facility] 10-14-2022 14:12-0400 SaO2% (BldA) [Mass fraction] 94 % Shanell Older ATHLETIC SCOUT.GEOPHYSICS SCIENTIST Work Phone: [facility] 10-14-2022 14:12-0400 Systolic blood pressure 104 mm[Hg] Shanell Older ATHLETIC SCOUT.GEOPHYSICS SCIENTIST Work Phone: [facility] 08-14-2022 11:20-0400 Body weight 87.09 kg Santo Oneill MD Work Phone: [facility] 08-14-2022 11:20-0400 Diastolic blood pressure 70 mm[Hg] Santo Oneill MD Work Phone: [facility] 08-14-2022 11:20-0400 Heart rate 87 /min Santo Oneill MD Work Phone: [facility] 08-14-2022 11:20-0400 SaO2% (BldA) [Mass fraction] 94 % Santo Oneill MD Work Phone: [facility] 08-14-2022 11:20-0400 Systolic blood pressure 110 mm[Hg] Santo Oneill MD Work Phone: [facility] 07-21-2022 10:44-0500 Body weight 89.54 kg Alejandrina Yasir ATHLETIC SCOUT.GEOPHYSICS SCIENTIST Work Phone: [facility] 07-21-2022 10:44-0500 Diastolic blood pressure 78 mm[Hg] Alejandrina Yasir ATHLETIC SCOUT.GEOPHYSICS SCIENTIST Work Phone: [facility] 07-21-2022 10:44-0500 Heart rate 64 /min Alejandrina Yasir ATHLETIC SCOUT.GEOPHYSICS SCIENTIST Work Phone: [facility] 07-21-2022 10:44-0500 SaO2% (BldA) [Mass fraction] 93 % Alejandrina Yasir ATHLETIC SCOUT.GEOPHYSICS SCIENTIST Work Phone: [facility] 07-21-2022 10:44-0500 Systolic blood pressure 130 mm[Hg] Alejandrina Yasir ATHLETIC SCOUT.GEOPHYSICS SCIENTIST Work Phone: [facility] 02-13-2022 11:07-0400 Body height 162.6 cm Santo Oneill MD Work Phone: [facility] 02-13-2022 11:07-0400 Body weight 89.09 kg Santo Oneill MD Work Phone: [facility] 02-13-2022 11:07-0400 Diastolic blood pressure 84 mm[Hg] Santo Oneill MD Work Phone: [facility] 02-13-2022 11:07-0400 Heart rate 80 /min Santo Oneill MD Work Phone: [facility] 02-13-2022 11:07-0400 Systolic blood pressure 136 mm[Hg] Santo Oneill MD Work Phone: [facility] 01-20-2022 10:46-0400 Body weight 87.91 kg Alejandrina Yasir ATHLETIC SCOUT.GEOPHYSICS SCIENTIST Work Phone: [facility] 01-20-2022 10:46-0400 Diastolic blood pressure 78 mm[Hg] Alejandrina Yasir ATHLETIC SCOUT.GEOPHYSICS SCIENTIST Work Phone: [facility] 01-20-2022 10:46-0400 Heart rate 79 /min Alejandrina Yasir ATHLETIC SCOUT.GEOPHYSICS SCIENTIST Work Phone: [facility] 01-20-2022 10:46-0400 SaO2% (BldA) [Mass fraction] 95 % Alejandrina Yasir ATHLETIC SCOUT.GEOPHYSICS SCIENTIST Work Phone: [facility] 01-20-2022 10:46-0400 Systolic blood pressure 124 mm[Hg] Alejandrina Yasir ATHLETIC SCOUT.GEOPHYSICS SCIENTIST Work Phone: [facility] 12-19-2021 09:10-0400 Body temperature 97.2 [degF] Sincere Audubon PA-C Work Phone: [facility] 12-19-2021 09:10-0400 Diastolic blood pressure 70 mm[Hg] Sincere Maddie PA-C Work Phone: [facility] 12-19-2021 09:10-0400 Heart rate 76 /min Sincere Maddie PA-C Work Phone: [facility] 12-19-2021 09:10-0400 SaO2% (BldA) [Mass fraction] 92 % Sincere Maddie PA-C Work Phone: [facility] 12-19-2021 09:10-0400 Systolic blood pressure 128 mm[Hg] Sincere Audubon PA-C Work Phone: [facility] 12-05-2021 10:53-0400 Body temperature 98.2 [degF] Wes Marshall MD Work Phone: [facility] 12-05-2021 10:53-0400 Heart rate 60 /min Wes Marshall MD Work Phone: [facility] 12-05-2021 10:53-0400 Respiratory rate 8 /min Wes Marshall MD Work Phone: [facility] 12-05-2021 10:53-0400 SaO2% (BldA) [Mass fraction] 98 % Wes Marshall MD Work Phone: [facility] 12-05-2021 10:45-0400 Diastolic blood pressure 70 mm[Hg] Wes Marshall MD Work Phone: [facility] 12-05-2021 10:45-0400 Systolic blood pressure 135 mm[Hg] Wes Marshall MD Work Phone: [facility] 11-02-2021 13:29-0400 Body height 162.6 cm Sincere Maddie PA-C Work Phone: [facility] 11-02-2021 13:29-0400 Body temperature 97.3 [degF] Sincere Maddie PA-C Work Phone: [facility] 11-02-2021 13:29-0400 Body weight 86.64 kg Sincere Audubon PA-C Work Phone: [facility] 11-02-2021 13:29-0400 Diastolic blood pressure 62 mm[Hg] Sincere Maddie PA-C Work Phone: [facility] 11-02-2021 13:29-0400 Heart rate 80 /min Sincere Audubon PA-C Work Phone: [facility] 11-02-2021 13:29-0400 SaO2% (BldA) [Mass fraction] 94 % Sincere Audubon PA-C Work Phone: [facility] 11-02-2021 13:29-0400 Systolic blood pressure 118 mm[Hg] Sincere Perkins PA-C Work Phone: [facility] 10-19-2021 11:38-0400 Body weight 86.73 kg Alejandrina Yasir ATHLETIC SCOUT.GEOPHYSICS SCIENTIST Work Phone: [facility] 10-19-2021 11:38-0400 Diastolic blood pressure 92 mm[Hg] Alejandrina Yasir ATHLETIC SCOUT.GEOPHYSICS SCIENTIST Work Phone: [facility] 10-19-2021 11:38-0400 Heart rate 79 /min Alejandrina Yasir ATHLETIC SCOUT.GEOPHYSICS SCIENTIST Work Phone: [facility] 10-19-2021 11:38-0400 Respiratory rate 16 /min Alejandrina Yasir ATHLETIC SCOUT.GEOPHYSICS SCIENTIST Work Phone: [facility] 10-19-2021 11:38-0400 SaO2% (BldA) [Mass fraction] 96 % Alejandrina Yasir ATHLETIC SCOUT.GEOPHYSICS SCIENTIST Work Phone: [facility] 10-19-2021 11:38-0400 Systolic blood pressure 132 mm[Hg] Alejandrina Yasir ATHLETIC SCOUT.GEOPHYSICS SCIENTIST Work Phone: [facility] 09-01-2021 15:38-0400 Body height 160 cm Alejandrina Yasir ATHLETIC SCOUT.GEOPHYSICS SCIENTIST Work Phone: [facility] 09-01-2021 15:38-0400 Body weight 88.45 kg Alejandrina Yasir ATHLETIC SCOUT.GEOPHYSICS SCIENTIST Work Phone: [facility] 09-01-2021 15:38-0400 Diastolic blood pressure 90 mm[Hg] Alejandrina Yasir ATHLETIC SCOUT.GEOPHYSICS SCIENTIST Work Phone: [facility] 09-01-2021 15:38-0400 Heart rate 69 /min Alejandrina Yasir ATHLETIC SCOUT.GEOPHYSICS SCIENTIST Work Phone: [facility] 09-01-2021 15:38-0400 SaO2% (BldA) [Mass fraction] 96 % Alejandrina Yasir ATHLETIC SCOUT.GEOPHYSICS SCIENTIST Work Phone: [facility] 09-01-2021 15:38-0400 Systolic blood pressure 146 mm[Hg] Alejandrina Harvey APRN.GEOPHYSICS SCIENTIST Work Phone: [facility] 02-24-2020 12:13-0400 BMI (Body Mass Index) 34.9 kg/m2 [facility]ane Solis [facility] Work Phone: 02-24-2020 12:13-0400 Body weight 89.36 kg Mane Solis [facility] [place] Work Phone: 02-24-2020 12:13-0400 BP Diastolic 80 mm[Hg] Mane Solis [facility] Elvie Work Phone: 02-24-2020 12:13-0400 BP Systolic 160 mm[Hg] [facility] Work Phone: 02-24-2020 12:13-0400 BSA (Body Surface Area) 1.92 m2 Mane Solis [facility] Work Phone: 02-04-2020 16:16-0400 BMI (Body Mass Index) 35.43 kg/m2 Rafael Frank III [facility] Work Phone: 02-04-2020 16:16-0400 Body weight 90.72 kg Rafael Frank III [facility] Work Phone: 02-04-2020 16:16-0400 BP Diastolic 78 mm[Hg] Rafael Frank III [facility] Jareth Work Phone: 02-04-2020 16:16-0400 BP Systolic 154 mm[Hg] Rafael Frank III [facility] Work Phone: 02-04-2020 16:16-0400 BSA (Body Surface Area) 1.93 m2 Rafael Frank III [facility] Work Phone: 02-04-2020 16:16-0400 Height 160.02 [...] BP Diastolic 92 mm[Hg] Rafael Frank III [facility] Work Phone: 01-28-2020 15:21-0400 BP Systolic 132 mm[Hg] Rafael Frank III [facility] Work Phone: 01-28-2020 15:21-0400 BSA (Body Surface Area) 1.93 m2 Rafael Templeton Work Phone: 01-28-2020 15:21-0400 Height 160.02 cm Rafael Frank III [facility] Work Phone: 01-22-2020 12:56-0400 BMI (Body Mass Index) 35.04 kg/m2 Rafael Templeton Work Phone: 01-22-2020 12:56-0400 Body weight 89.72 kg Rafael Frank III [facility] Work Phone: 01-22-2020 12:56-0400 BP Diastolic 84 mm[Hg] Rafael Frank III [facility] Work Phone: 01-22-2020 12:56-0400 BP Systolic 118 mm[Hg] Rafael Frank III [facility] Work Phone: 01-22-2020 12:56-0400 BSA (Body Surface Area) 1.92 m2 Rafael Templeton Work Phone: 01-22-2020 12:56-0400 Height 160.02 cm Rafael Templeton Work Phone: 01-22-2020 12:56-0400 Pulse (Heart Rate) 75 /min Rafael MendenhallMI TISHA Templeton Work Phone: 01-22-2020 12:56-0400 Respiratory Rate 16 /min Rafael Templeton Work Phone: Encounters Encounter Date Encounter Type Care Provider Facility Start: 11-13-2024 End: 11-13-2024 Emergency department patient visit Dr. Mandeep Houser DO Work Phone: -Emergency Department Work Phone: Start: 11-05-2024 End: 11-05-2024 ambulatory Chasidy Lyn MA [employer] Start: 11-05-2024 End: 11-05-2024 Patient encounter procedure Chasidy Lyn MA [employer] Comment on above: Population Health Na vigation Outreach 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; Left bundle branch block; Cardiac resynchronization therapy defibrillator (ASSISTANT CENTER MANAGER-D) in place Start: 11-03-2024 End: 11-03-2024 Patient encounter procedure Holter/Event Monitor Edenilson Work Phone: Cardiology Comment on above: Cardiac resynchroniz ation therapy defibrillator (ASSISTANT CENTER MANAGER-D) in place (Primary Dx) Cardiac resynchroniz ation therapy defibrillator (ASSISTANT CENTER MANAGER-D) in place (Primary Dx); Chronic HFrEF (heart failure with reduced ejection fraction) ([facility]); Medication management Start: 11-03-2024 End: 11-03-2024 ambulatory MANDEEP ALFARORISON Facility:[facility] Start: 11-03-2024 End: 11-03-2024 ambulatory MANDEEP HOUSER Facility:[facility] Start: 10-21-2024 End: 10-21-2024 Patient encounter procedure Mandeep Houser DO Work Phone: [facility] Comment on above: Chronic bilateral th oracic back pain (Primary Dx); Somatic dysfunction of spine, lumbar; Somatic dysfunction of rib; Somatic dysfunction of head region; Somatic dysfunction of spine, cervical; Somatic dysfunction of spine, thoracic Start: 10-21-2024 End: 10-21-2024 ambulatory MANDEEP ALFARORISON Facility:[facility] Start: 09-30-2024 End: 09-30-2024 ambulatory MANDEEP ALFARORISON Facility:[facility] Start: 09-23-2024 End: 09-23-2024 ambulatory MANDEEP ALFARORISON Facility:[facility] Start: 09-15-2024 End: 09-15-2024 [facility] Start: 09-15-2024 End: 09-15-2024 Patient encounter procedure Dorinda Young MA [facility] Comment on above: Population Health Na vigation Outreach ([facility], High Risk /) Start: 08-27-2024 End: 08-27-2024 Telephone encounter Dilcia Bonilla MD Work Phone: Cardiology Start: 08-25-2024 End: 08-25-2024 ambulatory MANDEEP HOUSER Facility:[facility] Start: 08-25-2024 End: 08-25-2024 Patient [...] Start: 08-15-2024 End: 08-15-2024 ambulatory MANDEEP ALFARORISON Facility:[facility] Start: 08-04-2024 End: 08-04-2024 ambulatory MANDEEP HOUSER Facility:[facility] Start: 08-04-2024 End: 08-04-2024 Patient encounter procedure Mandeep Houser DO Work Phone: Family Medicine [facility] Comment on above: Chronic bilateral th oracic back pain (Primary Dx); Somatic dysfunction of rib; Somatic dysfunction of spine, thoracic; Somatic dysfunction of spine, cervical; Somatic dysfunction of head region; Somatic dysfunction of pelvic region Start: 07-21-2024 End: 07-21-2024 ambulatory MANDEEP ALFARORISON Facility:[facility] Start: 07-21-2024 End: 07-21-2024 Patient encounter procedure Mandeep Houser DO Work Phone: [facility] Comment on above: Acute cough (Primary Dx); Vitamin B12 deficiency; Fatigue, unspecified type; Nausea; Hypothyroidism, acquired; Chronic 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); Vitamin D deficiency Start: 07-08-2024 End: 07-08-2024 Subsequent hospital visit by physician Joe [facility] Work Phone: Radiology Comment on above: Acute cough [R05.1] Start: 07-08-2024 End: 07-08-2024 ambulatory MANDEEP HOUSER Facility:[facility] Start: 07-08-2024 End: 07-08-2024 Patient encounter procedure Mandeep Houser DO Work Phone: [facility] Comment on above: Vitamin B12 deficien cy (Primary Dx); Fatigue, unspecified type; Lightheadedness; Acute cough; Chronic 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); Nausea; Hypothyroidism, acquired; Anemia, unspecified type; Vitamin D deficiency; Nonischemic cardiomyopathy (HCC) Start: 07-01-2024 End: 08-01-2024 Telephone encounter Mandeep Elsi Houser DO Work Phone: [facility] Start: 06-20-2024 End: 06-20-2024 ambulatory MANDEEP ALFARORISON Facility:[facility] Start: 06-20-2024 End: 06-20-2024 Patient encounter procedure Mandeep Alfarorison DO Work Phone: [facility] Comment on above: Chronic bilateral th oracic back pain (Primary Dx); Somatic dysfunction of rib; Somatic dysfunction of head region; Somatic dysfunction of spine, thoracic; Somatic dysfunction of spine, lumbar; Somatic dysfunction of spine, cervical; Somatic dysfunction of pelvic region Start: 05-30-2024 End: 05-30-2024 Patient encounter procedure Mandeep Alfarorison DO Work Phone: [facility] [place] Comment on above: Chronic bilateral th oracic back pain (Primary Dx); Somatic dysfunction of rib; Somatic dysfunction of spine, lumbar; Somatic dysfunction of spine, thoracic; Somatic dysfunction of spine, cervical; Somatic dysfunction of pelvic region; Somatic dysfunction of head region Start: 05-30-2024 End: 05-30-2024 ambulatory MANDEEP HOUSER Facility:[facility] Start: 05-12-2024 End: 05-12-2024 Patient encounter procedure Mandeep Elsi AlfaroHouser DO Work Phone: [facility] Comment on above: Chronic bilateral th oracic back pain (Primary Dx); Somatic dysfunction of rib; Somatic dysfunction of spine, thoracic; Somatic dysfunction of spine, cervical; Somatic dysfunction of head region; Somatic dysfunction of spine, lumbar Start: 05-12-2024 End: 05-12-2024 ambulatory MANDEEP HOUSER Facility:[facility] Start: 04-22-2024 End: 04-22-2024 ambulatory MANDEEP HOUSER Facility:[facility] Start: 04-22-2024 End: 04-22-2024 Patient encounter procedure Mandeep Elsi AlfaroHouser DO Work Phone: [facility] Comment on above: Suprapubic pain (Richi maritza Dx); Somatic dysfunction of head region; Chronic bilateral thoracic back pain; Somatic dysfunction of rib; Somatic dysfunction of spine, cervical; Somatic dysfunction of spine, thoracic; Somatic dysfunction of pelvic region; Somatic dysfunction of spine, lumbar Start: 04-22-2024 End: 04-22-2024 ambulatory MANDEEP HOUSER Facility:[facility] Start: 04-08-2024 End: 04-08-2024 Refill Mandeep L Houser DO Work Phone: [facility] Comment on above: Refill Request Start: 03-27-2024 End: 03-27-2024 Emergency department patient visit Mandeep Houser Facility:[facility] Start: 03-21-2024 End: 03-24-2024 Telephone encounter Mandeep Houser DO Work Phone: [facility] Comment on above: Medication Problem Start: 03-18-2024 End: 03-18-2024 ambulatory MANDEEP HOUSER Facility:[facility] Start: 03-05-2024 End: 03-06-2024 Telephone encounter Mandeep Houser DO Work Phone: [facility] Start: 02-12-2024 End: 02-12-2024 Patient encounter procedure Mandeep Houser DO Work Phone: [facility] Comment on above: Hypothyroidism, acqu ired (Primary Dx); Chronic bilateral thoracic back pain; Somatic dysfunction of rib; Somatic dysfunction of spine, cervical; Somatic dysfunction of spine, thoracic; Somatic dysfunction of spine, lumbar; Somatic dysfunction of head region Start: 02-12-2024 End: 02-12-2024 ambulatory MANDEEP HOUSER Facility:[facility] Start: 02-07-2024 End: 02-07-2024 ambulatory [facility] Facility:[facility] Start: 02-07-2024 End: 02-07-2024 Patient encounter procedure Angel Castro DO Work Phone: Cardiology Comment on above: Nonischemic cardiomy opathy (HCC) (Primary Dx) Start: 01-29-2024 End: 01-29-2024 ambulatory MANDEEP HOUSER Facility:[facility] Start: 01-29-2024 End: 01-29-2024 Patient encounter procedure Mandeep Houser DO Work Phone: [facility] Comment on above: Hypothyroidism, acqu ired (Primary Dx); Chronic bilateral thoracic back pain; Somatic dysfunction of spine, thoracic; Somatic dysfunction of spine, cervical; Somatic dysfunction of rib; Somatic dysfunction of spine, lumbar; Somatic dysfunction of head region Start: 01-15-2024 End: 01-15-2024 ambulatory MANDEEP HOUSER Facility:[facility] Start: 01-15-2024 End: 01-15-2024 Office outpatient visit 40 minutes Pili Wells MD Work Phone: Cardiology Comment on above: Chronic systolic con gestive heart failure (HCC) (Primary Dx); Nonischemic cardiomyopathy (HCC); Left bundle branch block; 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 Start: 01-04-2024 End: 01-04-2024 Patient encounter procedure Mandeep Houser DO Work Phone: [facility] Comment on above: Chronic neck pain (P rimary Dx); Chronic bilateral thoracic back pain; Somatic dysfunction of spine, thoracic; Somatic dysfunction of rib; Somatic dysfunction of spine, cervical; Somatic dysfunction of pelvic region; Somatic dysfunction of head region; Somatic dysfunction of spine, lumbar Start: 01-04-2024 End: 01-04-2024 ambulatory [facility] Facility:[facility] Start: 12-23-2023 ambulatory [facility] Facility:[facility] Start: 12-12-2023 End: 12-12-2023 ambulatory [facility] Facility:[facility] Start: 12-12-2023 End: 12-12-2023 Patient encounter procedure Mandeep Houser DO Work Phone: [facility] Comment on above: Chronic bilateral th oracic back pain (Primary Dx); Somatic dysfunction of head region; Somatic dysfunction of spine, cervical; Somatic dysfunction of rib; Somatic dysfunction of spine, thoracic; Somatic dysfunction of pelvic region Start: 12-12-2023 End: 12-12-2023 ambulatory MANDEEP HOUSER Facility:[facility] Start: 12-06-2023 Telephone encounter Pili ricardo MD Work Phone: Cardiology Start: 12-05-2023 End: 12-05-2023 Subsequent hospital visit by physician [facility] Work Phone: Cardiology Lab Comment on above: Chronic systolic con gestive heart failure (HCC) [I50.22] Start: 11-28-2023 Telephone encounter Mandeep ochoa DO Work Phone: NOC Comment on above: Transition Of Care Start: 11-27-2023 End: 11-27-2023 ambulatory MANDEEP ELDERON Facility:[facility] Start: 11-23-2023 Telephone encounter Rojas Prakash RN NOC Comment on above: Transition Of Care Start: 11-20-2023 Telephone encounter Misty Ascencio RN Cardiology Comment on above: Immunology Specialist - O ther (CHF) Start: 11-15-2023 End: 11-18-2023 ambulatory [facility] Facility:[facility] Start: 11-12-2023 End: 12-12-2023 ambulatory [facility] Facility:[facility] Start: 11-07-2023 End: 11-07-2023 Patient encounter procedure Mandeep Houser DO Work Phone: [facility] Comment on above: Acute midline low ba ck pain without sciatica (Primary Dx) Start: 11-07-2023 Telephone encounter Mandeep ochoa DO Work Phone: [facility] Comment on above: Appointment; OMT Start: 11-06-2023 Telephone encounter Mandeep ochoa DO Work Phone: [facility] Comment on above: Results (CT Brain) Start: 11-05-2023 End: 11-11-2023 ambulatory [facility] Facility:[facility] Start: 11-01-2023 ambulatory MANDEEP Calzada HOUSER Facil ity:[facility] Start: 11-01-2023 End: 11-01-2023 Subsequent hospital visit by physician [facility] Work Phone: [facility] Comment on above: Word finding difficu lty [R47.89] Start: 11-01-2023 End: 11-01-2023 Patient encounter procedure Mercedes Vera APRN.GEOPHYSICS SCIENTIST Work Phone: Cardiology Comment on above: Presence of cardiac resynchronization therapy defibrillator (ASSISTANT CENTER MANAGER-D) (Primary Dx); Non-ischemic cardiomyopathy (HCC); LBBB (left bundle branch block) Start: 10-31-2023 End: 10-31-2023 Patient encounter procedure Mandeep Houser DO Work Phone: [facility] Comment on above: Hypothyroidism, acqu ired (Primary [...] Start: 10-17-2023 Telephone encounter Rupali Zak chandra ATHLETIC SCOUT.GEOPHYSICS SCIENTIST Work Phone: [facility] Comment on above: Results Start: 10-15-2023 End: 10-15-2023 Patient encounter procedure Rupali Nascimento MELI.GEOPHYSICS SCIENTIST Work Phone: [facility] Comment on above: Localized swelling o f left foot (Primary Dx); Foot pain, left; 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 Start: 10-11-2023 End: 10-11-2023 Refill Mandeep Houser DO Work Phone: [facility] Comment on above: Refill Request Left Great Toe Pain Start: 10-10-2023 End: 10-12-2023 ambulatory [facility] Facility:[facility] Start: 10-02-2023 End: 10-02-2023 Office outpatient visit 15 minutes Pili Wells MD Work Phone: Cardiology Comment on above: Chronic systolic con gestive heart failure (HCC) (Primary Dx); Left bundle branch block; Nonischemic cardiomyopathy (HCC); Hypertension with heart disease Start: 10-01-2023 End: 10-01-2023 Patient encounter procedure Alejandrina Harvey APRN.GEOPHYSICS SCIENTIST Work Phone: [facility] Comment on above: Acute non-recurrent pansinusitis (Primary Dx) Start: 09-30-2023 Telephone encounter Oliverio Del Cid Work Phone: Podiatry Comment on above: Results Start: 09-25-2023 Telephone encounter Thuy Aguirre APRN.GEOPHYSICS SCIENTIST Work Phone: [place] [facility] Adult Comment on above: Results (FLP) Start: 09-24-2023 End: 09-24-2023 Subsequent hospital visit by physician Xr [facility] [employer] Work Phone: Radiology Comment on above: Repetitive stress in jury [X50.3XXA] Start: 09-24-2023 End: 09-24-2023 Patient encounter procedure Oliverio Mata Work Phone: Podiatry Comment on above: Repetitive stress in jury (Primary Dx); Venous insufficiency Start: 09-19-2023 Follow-up encounter Dilcia Bonilla MD Work Phone: [facility] Department Start: 09-19-2023 Patient encounter procedure Dilcia Bonilla MD Work Phone: [facility] Department Start: 09-17-2023 Telephone encounter Angel Castro DO Work Phone: Cardiology Comment on above: Patient Question (inga dennison) Results Patient Update Start: 09-13-2023 End: 09-13-2023 Subsequent hospital visit by physician Xr [facility] Work Phone: Radiology Comment on above: Foot pain, left [M79 .672] Start: 09-13-2023 End: 09-13-2023 Patient encounter procedure Alejandrina Harvey APRN.GEOPHYSICS SCIENTIST Work Phone: [facility] Comment on above: Foot pain, left (Richi maritza Dx); Localized swelling of left foot Start: 09-10-2023 End: 09-11-2023 ambulatory [facility] Work Phone: Start: 09-10-2023 End: 09-11-[address] [facility] Work Phone: Start: 09-06-2023 Encounter for meera l adult medical examination without abnormal findings [facility] Start: 09-05-2023 End: 09-05-2023 Patient encounter procedure Thuy Aguirre APRN.GEOPHYSICS SCIENTIST Work Phone: Cardiology Comment on above: Chronic systolic con gestive heart failure (HCC) (Primary Dx); Nonischemic cardiomyopathy (HCC); Mixed hyperlipidemia; LBBB (left bundle branch block); Presence of cardiac resynchronization therapy defibrillator (ASSISTANT CENTER MANAGER-D); Primary hypertension; 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; Valvular heart disease Start: 09-03-2023 Registered Recurring [facility]Card[facility] Work Phone: Start: 08-29-2023 End: 08-29-2023 ambulatory [facility] Work Phone: Start: 08-29-2023 End: 08-29-2023 Patient encounter procedure [facility]-Cardiac Rehab Work Phone: Start: 08-29-2023 End: 08-29-2023 ambulatory [facility] Facility:[facility] Start: 08-27-2023 Telephone encounter Alejandrina Johnson APRN.GEOPHYSICS SCIENTIST Work Phone: [facility] Comment on above: Patient Question; Inga moralesnt Update Start: 08-23-2023 Telephone encounter Pili ricardo MD Work Phone: Cardiology Start: 08-22-2023 End: 08-22-2023 Patient encounter procedure Alejandrina Harvey ATHLETIC SCOUT.GEOPHYSICS SCIENTIST Work Phone: [facility] Comment on above: Vagina, candidiasis (Primary Dx); Burning with urination; 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; Acute cough; Laryngopharyngeal reflux (LPR) Start: 08-07-2023 Follow-up encounter Dilcia Bonilla MD Work Phone: [facility] Start: 08-07-2023 End: 08-07-2023 Patient encounter procedure Dilcia Bonilla MD Work Phone: [facility] Department Comment on above: LBBB (left bundle br anch block) (Primary Dx); Presence of cardiac resynchronization therapy defibrillator (ASSISTANT CENTER MANAGER-D); Acute on chronic systolic CHF (congestive heart failure) (HCC) Start: 08-06-2023 Telephone encounter Pili ricardo MD Work Phone: Cardiology Start: 07-26-2023 Telephone encounter Dilcia Bonilla MD Work Phone: Cardiology Comment on above: Patient Update Start: 07-25-2023 Telephone encounter Mandeep ochoa DO Work Phone: Family [facility] Comment on above: Results Refill Request Start: 07-24-2023 End: 07-24-2023 Patient encounter procedure Mandeep Houser DO Work Phone: [facility] Comment on above: Chronic diastolic co ngestive heart failure (HCC) (Primary Dx); Hypothyroidism, acquired; Vitamin D deficiency; Fatigue, unspecified type; Acute hypoxic respiratory failure (HCC); Chronic bronchitis, unspecified chronic bronchitis type (HCC); Atrial fibrillation, unspecified type (HCC); SVT (supraventricular tachycardia) (HCC); Homozygous Factor V Leiden mutation (HCC) Start: 07-20-2023 ambulatory Fitz ramirez RN Work Phone: [facility] Start: 07-20-2023 Telephone encounter Mandeep Millard birdieanh DO Work Phone: NOC Comment on above: Follow Up (All Clear ) Transition Of Care ( TCM Initial [facility] Discharge 07/18/23) Start: 07-17-2023 Telephone encounter Morenita Griffin res, APRN.CNP Work Phone: [facility] Adult Comment on above: Appointment Start: 07-13-2023 End: 07-18-2023 Evaluation and management of inpatient MANDEEP HOUSER Facility:[facility] Start: 07-13-2023 Telephone encounter Rahul messina MD Work Phone: [facility] Adult Comment on above: Hospital To Hospital Start: 07-10-2023 End: 07-13-2023 Evaluation and management of inpatient REMINGTON CAI Facility:[facility] Start: 06-12-2023 End: 06-12-2023 ambulatory FLACA GREENFIELD Facility:[facility] Start: 05-17-2023 End: 05-17-2023 Subsequent hospital visit by physician [facility] Work Phone: Radiology Comment on above: Chronic cough [R05.3 ] Start: 04-26-2023 Telephone encounter Mandeep ochoa DO Work Phone: [facility] [place] Comment on above: Results Start: 04-17-2023 Telephone encounter Mandeep ochoa DO Work Phone: [facility] [place] Start: 04-09-2023 End: 04-09-2023 Patient encounter procedure Snato Oneill MD Work Phone: Cardiology Comment on above: Primary hypertension ; Chronic diastolic congestive heart failure (HCC) Start: 03-01-2023 Telephone encounter Mandeep ochoa DO Work Phone: Family [facility] Comment on above: Results Start: 01-09-2023 End: 01-09-2023 Refill Santo Oneill MD Work Phone: Cardiology Comment on above: Refill Request Hypothyroidism, unsp ecified type (Primary Dx); Somatic dysfunction of spine, cervical; Somatic dysfunction of rib; Somatic dysfunction of head region; Chronic bilateral thoracic back pain; Chronic neck pain; Neck fullness Start: 12-22-2022 Telephone encounter Mandeep ochoa DO Work Phone: [facility] [place] Comment on above: Results Start: 12-19-2022 Telephone encounter Mandeep ochoa DO Work Phone: Family [facility] Comment on above: Results Start: 12-14-2022 End: 12-14-2022 Subsequent hospital visit by physician [facility] [place] Work Phone: Radiology Comment on above: SOB (shortness of br eath) [R06.02] Start: 10-24-2022 Telephone encounter Oliverio Cross gretadiane Work Phone: Podiatry Comment on above: Orders Start: 10-15-2022 Telephone encounter Estelita hess ATHLETIC SCOUT.GEOPHYSICS SCIENTIST Work Phone: [facility] Comment on above: Results Start: 10-14-2022 End: 10-14-2022 Patient encounter procedure Shanellraghav Cox ATHLETIC SCOUT.GEOPHYSICS SCIENTIST Work Phone: [facility] Comment on above: Acute cough (Primary Dx); Sore throat Start: 10-10-2022 End: 10-10-2022 Patient encounter procedure Mandeep Eldervalerie MENDOZA Work Phone: [facility] [place] Comment on above: Chronic bilateral th oracic [...] 09-04-2022 Subsequent hospital visit by physician [facility] (I-Stat) Work Phone: Cat Scan [...] Mixed hyperlipidemia Start: 08-03-2022 [facility] Start: 07-26-2022 Telephone encounter Alejandrina Johnson APRN.GEOPHYSICS SCIENTIST Work Phone: [facility] [place] Comment on above: Results Start: 07-25-2022 End: 07-25-2022 Subsequent hospital visit by physician Bone Density [facility] Work Phone: Radiology Comment on above: Screening for osteop orosis [Z13.820] Start: 07-21-2022 End: 07-21-2022 Patient encounter procedure Alejandrina Harvey APRN.GEOPHYSICS SCIENTIST Work Phone: [facility] Comment on above: Hypothyroidism, unsp ecified type (Primary Dx); Primary hypertension; Mixed hyperlipidemia; Vitamin D deficiency; Asymptomatic menopause; Encounter for vitamin deficiency screening; Screening for diabetes mellitus; Elevated glucose; Encounter for immunization; Screening for osteoporosis; Encounter for screening for osteoporosis Start: 07-18-2022 End: 07-18-2022 Patient encounter procedure Mandeep Houser DO Work Phone: [facility] Comment on above: Chronic right-sided thoracic back pain (Primary Dx); Somatic dysfunction of spine, cervical; Somatic dysfunction of spine, thoracic; Somatic dysfunction of rib; Rib pain on right side Start: 07-03-2022 End: 07-03-2022 Patient encounter procedure Mandeep Houser DO Work Phone: [facility] Comment on above: Chronic bilateral th oracic back pain (Primary Dx); Somatic dysfunction of rib; Somatic dysfunction of spine, thoracic; Somatic dysfunction of spine, cervical; Rib pain on right side; Somatic dysfunction of head region Start: 05-24-2022 Telephone encounter Mandeep ochoa DO Work Phone: [facility] Start: 05-22-2022 End: 05-22-2022 Patient encounter procedure Mandeep Houser DO Work Phone: [facility] Comment on above: Dysuria (Primary Dx) ; Urticaria; Food allergy; Allergic urticaria; Somatic dysfunction of spine, thoracic; Somatic dysfunction of rib; Somatic dysfunction of spine, cervical; Rib pain on right side; Somatic dysfunction of head region Start: 05-16-2022 Refill Santo Oneill MD Work Phone: Cardiology Comment on above: Refill Request Start: 05-03-2022 Telephone encounter Mandeep ochoa DO Work Phone: [address] [address] Comment on above: Patient Question Start: 05-03-2022 End: 05-03-2022 Patient encounter procedure Mandeep Houser DO Work Phone: [facility] Comment on above: Rib pain on right si de (Primary Dx); Somatic dysfunction of spine, cervical; Somatic dysfunction of rib; Somatic dysfunction of spine, thoracic Start: 04-05-2022 ambulatory No Pcp (Historical) Ref erring Physician Start: 03-31-2022 ambulatory No Pcp (Historical) Ref erring Physician Start: 03-13-2022 Telephone encounter Alejandrina Johnson APRN.CNP Work Phone: [facility] Comment on above: Results Start: 03-10-2022 Telephone encounter Alejandrina Johnson APRN.CNP Work Phone: [facility] Comment on above: Consult Start: 02-13-2022 End: 02-13-2022 Patient encounter procedure Santo Oneill MD Work Phone: Cardiology Comment on above: Cardiomegaly (Primar y Dx); Primary hypertension; Chronic diastolic congestive heart failure (HCC); Palpitations; Acute on chronic systolic CHF (congestive heart failure) (HCC) Start: 01-20-2022 End: 01-20-2022 Patient encounter procedure Alejandrina Harvey APRN.CNP Work Phone: [facility] Comment on above: Routine physical exa mination (Primary Dx); Primary hypertension; Mixed hyperlipidemia; 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 with other form of angina pectoris (HCC); Vitamin D deficiency; Hypothyroidism, unspecified type Start: 01-20-2022 End: 01-20-2022 Physical examination Alejandrina Harvey APRN.CNP Work Phone: [facility] Start: 01-13-2022 Telephone encounter Estelita Culp APRN.CNP Work Phone: Cardiology Comment on above: Results Start: 12-27-2021 Refill Mandeep Gamble son DO Work Phone: [facility] Comment on above: Refill Request Start: 12-19-2021 End: 12-19-2021 Patient encounter procedure Sincere Perkins PA-C Work Phone: General Surgery Comment on above: Diverticulosis (Prim moni Dx); History of Clostridium difficile colitis; Abdominal bloating Start: 12-08-2021 Telephone encounter Santo Oneill MD Work Phone: Cardiology Comment on above: Patient Question Start: 12-05-2021 End: 12-05-2021 Subsequent hospital visit by physician Wes Marshall MD Work Phone: [facility] Endoscopy Comment on above: Abdominal bloating [...] ambulatory Mandeep Gamble son DO Work Phone: [facility] Start: 11-01-2021 Patient encounter procedure Mandeep Houser DO Work Phone: General Surgery Comment on above: Outpatient [place] [facility] Start: 10-27-2021 Telephone encounter Estelita Culp APRN.CNP Work Phone: [facility] Cardiology Comment on above: Results Start: 10-27-2021 End: 10-27-2021 Subsequent hospital visit by physician [facility] (I-Stat) Work Phone: Cat Scan Comment on above: Diverticulitis [K57. 92] Start: 10-24-2021 ambulatory Mandeep Gamble son DO Work Phone: [facility] Start: 10-24-2021 Patient encounter procedure Mandeep Houser DO Work Phone: [facility] [place] Comment on above: Outpatient [place] [facility] Start: 10-24-2021 Telephone encounter Estelita Culp MELI.GEOPHYSICS SCIENTIST Work Phone: [facility] [employer] [employer] Comment on above: Preparations For Pro cedures Start: 10-19-2021 End: 10-19-2021 Patient encounter procedure Alejandrina Harvey MELI.GEOPHYSICS SCIENTIST Work Phone: [facility] Comment on above: Diverticulitis (Prim moni Dx); RLQ abdominal pain; Lower abdominal pain Start: 09-21-2021 End: 09-21-2021 Patient encounter procedure Mandeep Houser DO Work Phone: [facility] Comment on above: Rib pain (Primary Dx ); Somatic dysfunction of head region; Somatic dysfunction of spine, cervical; Somatic dysfunction of rib; Somatic dysfunction of spine, thoracic; Neck pain Start: 09-19-[address] moyatoby MELI.GEOPHYSICS SCIENTIST Work Phone: [facility] Comment on above: Results Start: 09-02-2021 Telephone encounter Alejandrina leslie MELI.GEOPHYSICS SCIENTIST Work Phone: [facility] Comment on above: Results Start: 09-01-2021 End: 09-01-2021 Subsequent hospital visit by physician Joe [facility] Work Phone: Radiology Comment on above: Chronic left shoulde r pain [M25.512, G89.29] Start: 09-01-2021 End: 09-01-2021 Patient encounter procedure Alejandrina Harvey MELI.GEOPHYSICS SCIENTIST Work Phone: [facility] Comment on above: Chronic left shoulde r pain (Primary Dx); Left elbow pain; Primary hypertension; Mixed hyperlipidemia; Hypokalemia; Screening for lipid disorders; Screening for diabetes mellitus; Screening for thyroid disorder; Encounter for vitamin deficiency screening; Body mass index (BMI) 34.0-34.9, adult ; Abnormal finding of blood chemistry, unspecified Start: 08-29-2021 Telephone encounter Mandeep ochoa DO Work Phone: [facility] Comment on above: Appointment Start: 08-23-2021 ambulatory Farzana Rodriguez LPN [facility] Start: 08-15-2021 Documentation procedure Mammog hermann Coordinator [facility] Start: 08-15-2021 Letter encounter Mammography Coordinator [facility] Department Start: 08-15-2021 End: 08-15-2021 Subsequent hospital visit by physician Screen Mammo [facility] Mammogram Comment on above: Encounter for screen ing mammogram for breast cancer [Z12.31] Start: 08-09-2021 End: 08-09-2021 ambulatory Estelita Maradiaga PT Work Phone: [facility] Physical Therapy Comment on above: Left shoulder pain, unspecified chronicity; Lateral epicondylitis of left elbow Start: 01-05-2021 End: 01-05-2021 Subsequent hospital visit by physician Joe [facility] [place] Work Phone: Radiology Comment on above: Chronic pain of righ t ankle [M25.571, G89.29] Start: 08-02-2020 End: 08-02-2020 Subsequent hospital visit by physician Joe [facility] Work Phone: Radiology Comment on [...] Work Phone: Start: 10-21-2019 Patient encounter procedure [facility]af[facility] Frank [facility] Work Phone: Start: [...] foot complete minimum 3 views Kari Harvey ATHLETIC SCOUT.GEOPHYSICS SCIENTIST Work Phone: Start: 08-22-2023 Urnls dip stick/tablet rgnt auto w/o microscopy Alejandrina Harvey ATHLETIC SCOUT.GEOPHYSICS SCIENTIST Work Phone: Start: 08-07-2023 ICD CLINIC CHECK [...] study 1/> sites axial skel Alejandrina Harvey ATHLETIC SCOUT.GEOPHYSICS SCIENTIST Work Phone: Start: 12-05-2021 Colonoscopy flx dx w/collj spec when pfrmd Sincere Perkins PA-C Work Phone: Start: 12-05-2021 Esophagogastroduodenoscopy transoral diagnostic Sincere Perkins PA-C Work Phone: Start: 12-05-2021 Colonoscopy Wes Marshall MD Work Phone: Start: 10-27-2021 Ct abdomen & pelvis w/contrast material Alejandrina Harvey APRN.GEOPHYSICS SCIENTIST Work Phone: Start: 09-01-2021 Radex elbow 2 views Alejandrina Harvey APRN.GEOPHYSICS SCIENTIST Work Phone: Start: 08-15-2021 End: 08-15-2021 Screening [...] Author Start: 07-08-2027 Diabetes Screening Diabetes Screening [facility] Start: 04-22-2027 Diabetes Screening Diabetes Screening [facility] Start: 01-12-2027 LIPID SCREEN LIPID SCREEN [facility] Start: 12-11-2026 Diabetes Screening Diabetes Screening [facility] Start: 12-05-2026 Colonoscopy COLONOSCOPY [facility] Start: 12-05-2026 COLORECTAL CANCER SCREENING COLORECTAL CANCER SCREENING [facility] Start: 11-17-2026 Diabetes Screening Diabetes Screening [facility] Start: 10-14-2026 Diabetes Screening Diabetes Screening [facility] Start: 09-19-2026 Diabetes Screening Diabetes Screening [facility] Start: 09-14-2026 LIPID SCREEN LIPID SCREEN [facility] Start: 08-21-2026 Diabetes Screening Diabetes Screening [facility] Start: 07-23-2026 Diabetes Screening Diabetes Screening [facility] Start: 07-17-2026 Diabetes Screening Diabetes Screening [facility] Start: 07-10-2026 Diabetes Screening Diabetes Screening [facility] Start: 02-27-2026 Diabetes Screening Diabetes Screening [facility] Start: 12-22-2025 LIPID SCREEN LIPID SCREEN [facility] Start: 12-14-2025 DIABETES SCREEN DIABETES SCREEN [facility] Start: 12-14-2025 Diabetes Screening Diabetes Screening [facility] Start: 10-21-2025 Annual PCP Team Chronic Disease Visit Annual PCP Team Chronic Disease Visit [facility] Start: 09-30-2025 Annual PCP Team Chronic Disease Visit Annual PCP Team Chronic Disease Visit [facility] Start: 08-25-2025 Annual PCP Team Chronic Disease Visit Annual PCP Team Chronic Disease Visit [facility] Start: 08-04-2025 Annual PCP Team Chronic Disease Visit Annual PCP Team Chronic Disease Visit [facility] Start: 07-21-2025 Annual PCP Team Chronic Disease Visit Annual PCP Team Chronic Disease Visit [facility] Start: 07-21-2025 DIABETES SCREEN DIABETES SCREEN [facility] Start: 07-08-2025 Annual PCP Team Chronic Disease Visit Annual PCP Team Chronic Disease Visit [facility] Start: 07-08-2025 BP Controlled (<130/80) BP Controlled (<130/80) [facility] in Start: 06-20-2025 Annual PCP Team Chronic Disease Visit Annual PCP Team Chronic Disease Visit [facility] Start: 05-30-2025 Annual PCP Team Chronic Disease Visit Annual PCP Team Chronic Disease Visit [facility] Start: 05-22-2025 DIABETES SCREEN DIABETES SCREEN [facility] Start: 05-20-2025 End: 05-20-2025 Patient encounter procedure 05/20/2025 2:00 PM EST Office Visit Cardiology [address] [place] [address] [place] [address] [place], [place] [id number] 6 months follow up Cardiology Comment on above: 6 months follow up Start: 05-12-2025 Annual PCP Team Chronic Disease Visit Annual PCP Team Chronic Disease Visit [facility] Start: 04-22-2025 Annual PCP Team Chronic Disease Visit Annual PCP Team Chronic Disease Visit [facility] Start: 03-09-2025 End: 03-09-2025 Patient encounter procedure 03/09/2025 2:00 PM EDT Office Visit Cardiology [address] [place] [address] Santo Oneill MD [address] [facility] [address] [place], [place] [id number] 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]; Nonischemic cardiomyopathy (HCC) [I42.8] Cardiology Comment on above: 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]; Nonischemic cardiomyopathy (HCC) [I42.8] Start: 02-11-2025 Annual PCP Team Chronic Disease Visit Annual PCP Team Chronic Disease Visit [facility] Start: 01-28-2025 Annual PCP Team Chronic Disease Visit Annual PCP Team Chronic Disease Visit [facility] Start: 01-14-2025 BP Controlled (<130/80) BP Controlled (<130/80) [facility] Start: 01-12-2025 DIABETES SCREEN DIABETES SCREEN [facility] Start: 01-03-2025 Annual PCP Team Chronic Disease Visit Annual PCP Team Chronic Disease Visit [facility] Start: 12-11-2024 Annual PCP Team Chronic Disease Visit Annual PCP Team Chronic Disease Visit [facility] Start: 11-24-2024 End: 11-24-2024 Patient encounter procedure 11/24/2024 2:00 PM EDT Office Visit [facility] [address] [place] [address] Mandeep Houser DO [address] [place] [address] OMT Family [facility] Comment on above: OMT Start: 11-21-2024 End: 11-21-2024 Patient encounter procedure 11/21/2024 11:20 AM EDT Office Visit Cardiology [address] [place] [id number] Álvaro Lobo MD [address] [place] [address] follow up Cardiology Comment on above: follow up Start: 11-13-2024 Incentive spirometry [facility] Start: 11-13-2024 End: 11-13-2024 [facility] Start: 11-06-2024 Annual PCP Team Chronic Disease Visit Annual PCP Team Chronic Disease Visit [facility] Start: 11-04-2024 End: 11-04-2024 Patient encounter procedure Cardiology Comment on above: medtronic annual annual medtronic ck medtronic annual ck 9 months follow up Start: 11-03-2024 End: 11-03-2024 Patient encounter procedure Cardiology Comment on above: 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+ Hill 9m Start: 10-31-2024 BP Controlled (<130/80) BP Controlled (<130/80) [facility] in Start: 10-30-2024 Annual PCP Team Chronic Disease Visit Annual PCP Team Chronic Disease Visit [facility] Start: 10-30-2024 Anxiety Screening Anxiety Screening [facility] Start: 10-30-2024 Depression Screening Depression Screening [facility] Start: 10-27-2024 DIABETES SCREEN DIABETES SCREEN [facility] Start: 10-21-2024 End: 10-21-2024 Patient encounter procedure 10/21/2024 3:20 PM EDT Office Visit [facility] [employer] [address] [place] [address] Mandeep Houser DO [address] [facility] [place] [id number] OMT [facility] [place] Comment on above: OMT Start: 10-14-2024 Annual PCP Team Chronic Disease Visit Annual PCP Team Chronic Disease Visit [facility] Start: 10-14-2024 RSV Vaccine (1 - 1-dose 60+ series) RSV Vaccine (1 - 1-dose 60+ series) [facility] Comment on above: Postponed from 2006 (Declined at t his time) Start: 10-14-2024 RSV Vaccine (1 - 1-dose 75+ series) RSV Vaccine (1 - 1-dose 75+ series) [facility] Comment on above: Postponed from 2021 (Declined at t his time) Start: 10-14-2024 Shingrix Vaccine (1 of 2) Shingrix Vaccine (1 of 2) [facility] Comment on above: Postponed from 1996 (Declined at t his time) Start: 10-14-2024 Urine microalbumin profile DTaP,Tdap,Td Vaccine (1 - Tdap) [facility] Comment on above: Postponed from 1965 (Declined at t his time) Start: 10-14-2024 End: 10-14-2024 Patient encounter procedure Cardiology Comment on above: 9 months follow up Start: 09-30-2024 Annual PCP Team Chronic Disease Visit Annual PCP Team Chronic Disease Visit [facility] Start: 09-23-2024 End: 09-23-2024 Patient encounter procedure 09/23/2024 3:40 PM EDT Office Visit Family [employer] [address] [facility] [place] [address] Mandeep Houser, [address] [place] [address] OMT [facility] Comment on above: OMT Start: 09-19-2024 Hepatitis B surface antibody level LDL Cholesterol [facility] Start: 09-14-2024 DIABETES SCREEN DIABETES SCREEN [facility] Start: 09-12-2024 Annual PCP Team Chronic Disease Visit Annual PCP Team Chronic Disease Visit [facility] Start: 08-25-2024 End: 08-25-2024 Patient encounter procedure 08/25/2024 3:40 PM EDT Office Visit Family [facility] [address] [place] [address] Mandeep Houser DO [address] [place] [address] OMT [facility] [place] Comment on above: OMT Start: 08-22-2024 End: 08-22-2024 Patient encounter procedure 08/22/2024 11:20 AM EDT Office Visit Cardiology [address] [address] Álvaro Lobo MD [address] [place] [address] follow up Cardiology Comment on above: follow up Start: 08-21-2024 Annual PCP Team Chronic Disease Visit Annual PCP Team Chronic Disease Visit [facility] Start: 08-20-2024 End: 08-20-2024 Patient encounter procedure 08/20/2024 1:00 PM EDT Office Visit Cardiology [address] [address] Angel Castro DO [address] [place] [address] 6 month follow up Cardiology Comment on above: 6 month follow up Start: 08-15-2024 End: 08-15-2024 Patient encounter procedure 08/15/2024 1:00 PM EDT Office Visit Cardiology [address] [place] [address] Nonischemic cardiomyopathy (HCC) [I42.8] Cardiology Comment on above: Nonischemic cardiomyopathy (HCC) [I42.8] Start: 08-06-2024 BP Controlled (<130/80) BP Controlled (<130/80) [facility] in Start: 08-06-2024 End: 02-06-2025 Echocardiography ECHO Cardiology Routine Nonischemic cardiomyopathy (HCC) Expected: 08/06/2024, Expires: 02/06/2025 [facility] Work Phone: Comment on above: Expected: 08/06/2024, Expires: Start: 08-06-2024 End: 08-06-2024 Patient encounter procedure 08/06/2024 11:20 AM EDT Office Visit Cardiology [address] [address] Nonischemic cardiomyopathy (HCC) [I42.8] Cardiology Comment on above: Nonischemic cardiomyopathy (HCC) [I42.8] Start: 08-04-2024 End: 08-04-2024 Patient encounter procedure 08/04/2024 2:00 PM EDT Office Visit [facility] [place] [address] [facility] [address] Mandeep Houser DO [address] [place] [address] Omt [facility] Comment on above: Omt Start: 07-23-2024 Annual PCP Team Chronic Disease Visit Annual PCP Team Chronic Disease Visit [facility] Start: 07-21-2024 End: 07-21-2024 Patient encounter procedure 07/21/2024 4:00 PM EDT Office Visit Family [facility] [address] [facility] [place] [address] Mandeep Houser, [address] [place] [address] 2 week follow up Family [facility] Comment on above: 2 week follow up Start: 07-08-2024 End: 10-07-2024 25-hydroxyvitamin D3 [Mass/volume] in Serum or Plasma [facility] Comment on above: Expected: 07/08/2024, Expires: Start: 07-08-2024 End: 10-07-2024 Cobalamin (Vitamin B12) [Mass/volume] in Serum or Plasma [facility] Comment on above: Expected: 07/08/2024, Expires: Start: 07-08-2024 End: 10-07-2024 Comprehensive metabolic 2000 panel - Serum or Plasma [facility] Comment on above: Expected: 07/08/2024, Expires: Start: 07-08-2024 End: 10-07-2024 Magnesium [Mass/volume] in Serum or Plasma [facility] Comment on above: Expected: 07/08/2024, Expires: Start: 07-08-2024 End: 10-07-2024 Natriuretic peptide.B prohormone N-Terminal [Mass/volume] in Serum or Plasma [facility] Comment on above: Expected: 07/08/2024, Expires: Start: 07-08-2024 End: 07-08-2024 Patient encounter procedure 07/08/2024 2:00 PM EST Office Visit [facility] [place] [address] [place] [address] Mandeep Houser DO [address] [place] [address] OMT [facility] Comment on above: OMT Start: 07-08-2024 End: 10-07-2024 Thyrotropin [Units/volume] in Serum or Plasma [facility] Comment on above: Expected: 07/08/2024, Expires: Start: 07-08-2024 End: 10-07-2024 Thyroxine (T4) free [Mass/volume] in Serum or Plasma [facility] Comment on above: Expected: 07/08/2024, Expires: Start: 07-08-2024 End: 10-07-2024 Urinalysis complete panel - Urine [facility] Work Phone: Comment on above: Expected: 07/08/2024, Expires: Start: 06-20-2024 End: 06-20-2024 Patient encounter procedure 06/20/2024 2:20 PM EST Office Visit [facility] [address] [place] [address] Mandeep Houser, [address] [place] [address] OMT [facility] [place] Comment on above: OMT Start: 06-12-2024 BP Controlled (<130/80) BP Controlled (<130/80) [facility] Start: 05-30-2024 End: 05-30-2024 Patient encounter procedure 05/30/2024 3:20 PM EST Office Visit Family Medicine [place] [address] [facility] [place] [address] Mandeep Houser, [address] [place] [address] OMT [facility] [place] Comment on above: OMT Start: 05-14-2024 Advance Directive Discussion Advance Directive Discussion [facility] Start: 05-12-2024 End: 05-12-2024 Patient encounter procedure 05/12/2024 3:20 PM EST Office Visit [facility] [place] [address] [facility] [place] [address] Mandeep Houser, DO [address] [place] [address] OMT [facility] Comment on above: OMT Start: 04-22-2024 End: 07-22-2024 Bacteria identified in Urine by Culture URINE CULTURE Microbiology Routine Suprapubic pain Expected: 04/22/2024, Expires: 07/22/2024 [facility] Work Phone: Comment on above: Expected: 04/22/2024, Expires: 5 Start: 04-22-2024 End: 07-22-2024 C reactive protein [Mass/volume] in Serum or Plasma [facility] Comment on above: Expected: 04/22/2024, Expires: 5 Start: 04-22-2024 End: 07-22-2024 Comprehensive metabolic 2000 panel - Serum or Plasma [facility] Comment on above: Expected: 04/22/2024, Expires: 5 Start: 04-22-2024 End: 07-22-2024 Lipase [Enzymatic activity/volume] in Serum or Plasma [facility] Comment on above: Expected: 04/22/2024, Expires: Start: 04-22-2024 End: 04-22-2024 Patient encounter procedure 04/22/2024 2:00 PM EST Office Visit [facility] [place] [address] [place] [address] Mandeep Houser, DO [address] [place] [address] OMT [facility] [place] Comment on above: OMT Start: 04-17-2024 Annual PCP Team Chronic Disease Visit Annual PCP Team Chronic Disease Visit [facility] Start: 03-18-2024 End: 03-18-2024 Patient encounter procedure 03/18/2024 2:00 PM EST Office Visit [facility] [place] [address] [place] [address] Mandeep Houser, DO [address] [place] [address] OMT [facility] [place] Comment on above: OMT Start: 02-12-2024 End: 02-12-2024 Patient encounter procedure 02/12/2024 2:00 PM EDT Office Visit [facility] [place] [address] [place] [address] Mandeep Houser, DO [address] [place] [address] OMT [facility] [place] Comment on above: OMT Start: 02-12-2024 End: 05-13-2024 Thyrotropin [Units/volume] in Serum or Plasma [facility] Work Phone: Comment on above: Expected: 02/12/2024, Expires: Start: 02-12-2024 End: 05-13-2024 Thyroxine (T4) free [Mass/volume] in Serum or Plasma [facility] Comment on above: Expected: 02/12/2024, Expires: Start: 02-12-2024 End: 05-13-2024 Triiodothyronine (T3) Free [Mass/volume] in Serum or Plasma [facility] Comment on above: Expected: 02/12/2024, Expires: Start: 02-07-2024 End: 02-07-2024 Patient encounter procedure 02/07/2024 2:20 PM EDT Office Visit Cardiology [address] [address] Angel Castro DO [address] [place] [address] 3 month follow up Cardiology Comment on above: 3 month follow up Start: 02-07-2024 Annual PCP Team Chronic Disease Visit Annual PCP Team Chronic Disease Visit [facility] Start: 02-01-2024 DIABETES SCREEN DIABETES SCREEN [facility] Start: 01-29-2024 End: 04-29-2024 Thyrotropin [Units/volume] in Serum or Plasma THYROID STIMULATING HORMONE Lab Routine Hypothyroidism, acquired Expected: 01/29/2024, Expires: 04/29/2024 [facility] Work Phone: Comment on above: Expected: 01/29/2024, Expires: Start: 01-29-2024 End: 04-29-2024 Thyroxine (T4) free [Mass/volume] in Serum or Plasma T4 FREE/FREE THYROXINE Lab Routine Hypothyroidism, acquired Expected: 01/29/2024, Expires: 04/29/2024 [facility] Comment on above: Expected: 01/29/2024, Expires: Start: 01-29-2024 End: 04-29-2024 Triiodothyronine (T3) Free [Mass/volume] in Serum or Plasma T3, FREE Lab Routine Hypothyroidism, acquired Expected: 01/29/2024, Expires: 04/29/2024 [facility] Comment on above: Expected: 01/29/2024, Expires: Start: 01-29-2024 End: 01-29-2024 Patient encounter procedure 01/29/2024 11:40 AM EDT Office Visit [facility] [place] [address] [facility] [place] [address] Mandeep Houser DO [address] [place] [address] OMT [facility] [place] Comment on above: OMT Start: 01-15-2024 End: 01-15-2024 Patient encounter procedure 01/15/2024 1:00 PM EDT Office Visit Cardiology [address] [facility] [address] [place] [id number] [place] [address] [place] [address] 5 months follow up in office per Cardiology Comment on above: 5 months follow up in office per Start: 01-10-2024 ANNUAL PCP TEAM CHRONIC DISEASE VISIT ANNUAL PCP TEAM CHRONIC DISEASE VISIT [facility] Start: 01-07-2024 End: 01-07-2024 Patient encounter procedure Cardiology Comment on above: 5 month follow up office appointment per Start: 01-04-2024 End: 01-04-2024 Patient encounter procedure 01/04/2024 4:20 PM EDT Office Visit [facility] [place] [address] [place] [address] Mandeep Houser DO [address] [place] [address] OMT [facility] [place] Comment on above: OMT Start: 12-14-2023 ANNUAL PCP TEAM CHRONIC DISEASE VISIT ANNUAL PCP TEAM CHRONIC DISEASE VISIT [facility] Start: 12-12-2023 End: 12-12-2023 Patient encounter procedure 12/12/2023 3:40 PM EDT Office Visit [facility] [place] [address] [facility] [place] [address] Mandeep Houser DO [address] [facility] [place] [address] OMT [facility] [place] Comment on above: OMT Start: 12-05-2023 End: 12-05-2023 Patient encounter procedure 12/05/2023 1:00 PM EDT Appointment Cardiology Lab [address] [place] [id number] ECHO Cardiology Lab Comment on above: ECHO Start: 11-27-2023 End: 11-27-2023 Patient encounter procedure 11/27/2023 11:20 AM EDT Office Visit [facility] Medicine [place] [address] [facility] [place] [address] Mandeep Houser, [address] [place] [address] OMT [facility] [place] Comment on above: OMT Start: 11-14-2023 End: 11-14-2023 Patient encounter procedure 11/14/2023 11:40 AM EDT Office Visit Cardiology [address] [address] Angel Castro, DO [address] [place] [address] 3 month follow up Cardiology Comment on above: 3 month follow up Start: 11-07-2023 End: 11-07-2023 Patient encounter procedure 11/07/2023 1:00 PM EDT Office Visit Cardiology [address] [address] ECHO Cardiology Comment on above: ECHO Start: 11-01-2023 End: 11-01-2023 Patient encounter procedure Cardiology Comment on above: follow up check incision Word finding difficu lty [R47.89]; New onset of headaches after age 50 [R51.9] Start: 10-31-2023 End: 10-31-2023 Patient encounter procedure 10/31/2023 3:00 PM EDT Office Visit [facility] [place] [address] [place] [address] Mandeep Houser, [address] [place] [address] 3 month follow up Family [facility] Comment on above: 3 month follow up Start: 10-31-2023 End: 01-30-2024 25-hydroxyvitamin D3 [Mass/volume] in Serum or Plasma [facility] Work Phone: Comment on above: Expected: 10/31/2023, Expires: 4 Start: 10-31-2023 End: 01-30-2024 C reactive protein [Mass/volume] in Serum or Plasma [facility] Comment on above: Expected: 10/31/2023, Expires: 4 Start: 10-31-2023 End: 01-30-2024 Iron and Iron binding capacity panel - Serum or Plasma [facility] Comment on above: Expected: 10/31/2023, Expires: 4 Start: 10-31-2023 End: 01-30-2024 Magnesium [Mass/volume] in Serum or Plasma [facility] Comment on above: Expected: 10/31/2023, Expires: Start: 10-31-2023 End: 01-30-2024 Thyrotropin [Units/volume] in Serum or Plasma [facility] Comment on above: Expected: 10/31/2023, Expires: Start: 10-31-2023 End: 01-30-2024 Thyroxine (T4) free [Mass/volume] in Serum or Plasma [facility] Comment on above: Expected: 10/31/2023, Expires: Start: 10-31-2023 End: 01-30-2024 Triiodothyronine (T3) Free [Mass/volume] in Serum or Plasma [facility] Comment on above: Expected: 10/31/2023, Expires: 4 Start: 10-15-2023 BP CONTROLLED (<130/80) BP CONTROLLED (<130/80) [facility] Start: 10-15-2023 End: 01-14-2024 Comprehensive metabolic 2000 panel - Serum or Plasma [facility] Work Phone: Comment on above: Expected: 10/15/2023, Expires: 4 Start: 10-15-2023 End: 01-14-2024 Urate [Mass/volume] in Serum or Plasma [facility] Comment on above: Expected: 10/15/2023, Expires: 4 Start: 10-11-2023 ANNUAL PCP TEAM CHRONIC DISEASE VISIT ANNUAL PCP TEAM CHRONIC DISEASE VISIT [facility] Start: 10-02-2023 End: 10-02-2023 ambulatory Cardiology Comment on above: Phone visit 6-[address] Wells please call [phone] Start: 09-24-2023 End: 09-24-2023 Patient encounter procedure 09/24/2023 10:15 AM EDT Office Visit Podiatry [address] [place], [place] [id number] Oliverio Mata [address] [place], [place] [id number] left foot pain swollen Podiatry Comment on above: left foot pain swollen Start: 09-19-2023 End: 12-19-2023 Basic metabolic 2000 panel - Serum or Plasma BASIC METABOLIC PANEL Lab Routine Nonischemic cardiomyopathy (HCC) Chronic systolic congestive heart failure (HCC) Expected: 09/19/2023 (Approximate), Expires: 12/19/2023 [facility] Work Phone: Comment on above: Expected: 09/19/2023 (Approximate), Expi res: 12/19/2023 Start: 09-05-2023 End: 12-05-2023 Lipid 1996 panel - Serum or Plasma LIPID PANEL BASIC Lab Routine Mixed hyperlipidemia Expected: 09/05/2023, Expires: 12/05/2023 [facility] Comment on above: Expected: 09/05/2023, Expires: Start: 08-23-2023 ANNUAL PCP TEAM CHRONIC DISEASE VISIT ANNUAL PCP TEAM CHRONIC DISEASE VISIT [facility] Start: 08-15-2023 BP CONTROLLED (<130/80) BP CONTROLLED (<130/80) [facility] Start: 08-03-2023 ANNUAL PCP TEAM CHRONIC DISEASE VISIT ANNUAL PCP TEAM CHRONIC DISEASE VISIT [facility] Start: 07-24-2023 End: 10-23-2023 25-hydroxyvitamin D3 [Mass/volume] in Serum or Plasma [facility] Work Phone: Comment on above: Expected: 07/24/2023, Expires: Start: 07-22-2023 ANNUAL PCP TEAM CHRONIC DISEASE VISIT ANNUAL PCP TEAM CHRONIC DISEASE VISIT [facility] Start: 07-22-2023 Hepatitis B surface antibody level LDL CHOLESTEROL [facility] Start: 07-22-2023 HEPATITIS C SCREENING HEPATITIS C SCREENING [facility] Comment on above: Postponed from 1964 (Declined at t his time) Start: 07-22-2023 Hepatitis C screening Hepatitis C Screening [facility] Comment on above: Postponed from 1964 (Declined at t his time) Start: 07-22-2023 Urine microalbumin profile [facility] Comment on above: Postponed from 1965 (Declined at t his time) Start: 07-19-2023 ANNUAL PCP TEAM CHRONIC DISEASE VISIT ANNUAL PCP TEAM CHRONIC DISEASE VISIT [facility] Start: 05-14-2023 Advance Directive Discussion Advance Directive Discussion [facility] Start: 05-14-2023 Behavioral Health Screening Behavioral Health Screening [facility] Start: 05-14-2023 Depression Assessment Depression Assessment [facility] Start: 05-13-2023 ADVANCE DIRECTIVE DISCUSSION ADVANCE DIRECTIVE DISCUSSION [facility] Comment on above: Postponed from 05/14/2022 (Declined at t his time) Start: 05-03-2023 ANNUAL PCP TEAM CHRONIC DISEASE VISIT ANNUAL PCP TEAM CHRONIC DISEASE VISIT [facility] Start: 03-10-2023 ANNUAL PCP TEAM CHRONIC DISEASE VISIT ANNUAL PCP TEAM CHRONIC DISEASE VISIT [facility] Start: 03-10-2023 BP CONTROLLED (<130/80) BP CONTROLLED (<130/80) [facility] Start: 02-09-2023 End: 04-11-2023 CBC W Auto Differential panel - Blood CBC + DIFF Lab Routine Hypothyroidism, unspecified type Expected: 02/09/2023, Expires: 04/11/2023 [facility] Work Phone: Comment on above: Expected: 02/09/2023, Expires: 3 Start: 02-09-2023 End: 04-11-2023 Comprehensive metabolic 2000 panel - Serum or Plasma COMP METABOLIC PANEL Lab Routine Hypothyroidism, unspecified type Expected: 02/09/2023, Expires: 04/11/2023 [facility] Work Phone: Comment on above: Expected: 02/09/2023, Expires: 3 Start: 02-09-2023 End: 04-11-2023 Thyrotropin [Units/volume] in Serum or Plasma TSH BLD Lab Routine Hypothyroidism, unspecified type Expected: 02/09/2023, Expires: 04/11/2023 [facility] Work Phone: Comment on above: Expected: 02/09/2023, Expires: 3 Start: 02-09-2023 End: 04-11-2023 Thyroxine (T4) free [Mass/volume] in Serum or Plasma T4 FREE/FREE THYROX Lab Routine Hypothyroidism, unspecified type Expected: 02/09/2023, Expires: 04/11/2023 [facility] Work Phone: Comment on above: Expected: 02/09/2023, Expires: 3 Start: 02-09-2023 End: 04-11-2023 Triiodothyronine (T3) Free [Mass/volume] in Serum or Plasma T3 FREE BLD Lab Routine Hypothyroidism, unspecified type Expected: 02/09/2023, Expires: 04/11/2023 [facility] Work Phone: Comment on above: Expected: 02/09/2023, Expires: 3 Start: 01-20-2023 ANNUAL PCP TEAM CHRONIC DISEASE VISIT ANNUAL PCP TEAM CHRONIC DISEASE VISIT [facility] Start: 01-20-2023 BP CONTROLLED (<130/80) BP CONTROLLED (<130/80) [facility] Start: 01-12-2023 Hepatitis B surface antibody level LDL CHOLESTEROL [facility] Start: 12-19-2022 BP CONTROLLED (<130/80) BP CONTROLLED (<130/80) [facility] Start: 11-02-2022 BP CONTROLLED (<130/80) BP CONTROLLED (<130/80) [facility] Start: 10-19-2022 ANNUAL PCP TEAM CHRONIC DISEASE VISIT ANNUAL PCP TEAM CHRONIC DISEASE VISIT [facility] Start: 10-14-2022 End: 10-28-2022 Influenza virus A and B RNA and SARS-CoV-2 (COVID-19) N gene panel - Respiratory specimen by PRECIOUS with probe detection COVID WITH FLUA+B, ROUTINE Microbiology Routine Sore throat Acute cough Expected: 10/14/2022, Expires: 10/28/2022 [facility] Work Phone: Comment on above: Expected: 10/14/2022, Expires: 3 Start: 09-21-2022 ANNUAL PCP TEAM CHRONIC DISEASE VISIT ANNUAL PCP TEAM CHRONIC DISEASE VISIT [facility] Start: 09-14-2022 Hepatitis B surface antibody level LDL CHOLESTEROL [facility] Start: 09-01-2022 ANNUAL PCP TEAM CHRONIC DISEASE VISIT ANNUAL PCP TEAM CHRONIC DISEASE VISIT [facility] Start: 08-15-2022 Mammography MAMMOGRAM [facility] Start: 07-01-2022 ANNUAL PCP TEAM CHRONIC DISEASE VISIT ANNUAL PCP TEAM CHRONIC DISEASE VISIT [facility] Start: 05-14-2022 ADVANCE DIRECTIVE DISCUSSION ADVANCE DIRECTIVE DISCUSSION [facility] Start: 05-14-2022 DEPRESSION ASSESSMENT DEPRESSION ASSESSMENT [facility] Start: 02-20-2022 End: 02-13-2023 Echocardiography ECHO Cardiology Routine Cardiomegaly Expected: 02/20/2022, Expires: 02/13/2023 [facility] Work Phone: Comment on above: Expected: 02/20/2022, Expires: 3 Start: 12-29-2021 PNEUMOCOCCAL: 65+ (2 - PCV) PNEUMOCOCCAL: 65+ (2 - PCV) [facility] Start: 12-22-2021 Hepatitis B surface antibody level LDL CHOLESTEROL [facility] Start: 12-09-2021 Adult depression screening assessment DEPRESSION SCREENING [facility] Start: 11-29-2021 End: 01-29-2022 Basic metabolic 2000 panel - Serum or Plasma BASIC METABOLIC PNL Lab Routine Chronic systolic CHF (congestive heart failure) (HCC) Expected: 11/29/2021, Expires: 01/29/2022 [facility] Work Phone: Comment on above: Expected: 11/29/2021, Expires: 2 Start: 11-29-2021 End: 01-29-2022 CBC panel - Blood by Automated count CBC Lab Routine Chronic systolic CHF (congestive heart failure) (HCC) Expected: 11/29/2021, Expires: 01/29/2022 [facility] Work Phone: Comment on above: Expected: 11/29/2021, Expires: 2 Start: 10-20-2021 End: 12-20-2021 T3 BLD T3 BLD Lab Routine Hypothyroidism, unspecified type Expected: 10/20/2021, Expires: 12/20/2021 [facility] Work Phone: Comment on above: Expected: 10/20/2021, Expires: 2 Start: 10-20-2021 End: 12-20-2021 T4 FREE/FREE THYROX T4 FREE/FREE THYROX Lab Routine Hypothyroidism, unspecified type Expected: 10/20/2021, Expires: 12/20/2021 [facility] Work Phone: Comment on above: Expected: 10/20/2021, Expires: 2 Start: 10-20-2021 End: 12-20-2021 Thyrotropin [Units/volume] in Serum or Plasma TSH BLD Lab Routine Hypothyroidism, unspecified type Expected: 10/20/2021, Expires: 12/20/2021 [facility] Work Phone: Comment on above: Expected: 10/20/2021, Expires: 2 Start: 09-01-2021 End: 11-01-2021 CBC W Auto Differential panel - Blood CBC + DIFF Lab Routine Primary hypertension Expected: 09/01/2021, Expires: 11/01/2021 [facility] Work Phone: Comment on above: Expected: 09/01/2021, Expires: 2 Start: 09-01-2021 End: 11-01-2021 Comprehensive metabolic 2000 panel - Serum or Plasma COMP METABOLIC PANEL Lab Routine Primary hypertension Hypokalemia Expected: 09/01/2021, Expires: 11/01/2021 [facility] Work Phone: Comment on above: Expected: 09/01/2021, Expires: 2 Start: 09-01-2021 End: 11-01-2021 Hemoglobin A1c/Hemoglobin.total in Blood HGB A1C Lab Routine Screening for diabetes mellitus Abnormal finding of blood chemistry, unspecified Expected: 09/01/2021, Expires: 11/01/2021 [facility] Work Phone: Comment on above: Expected: 09/01/2021, Expires: 2 Start: 09-01-2021 End: 11-01-2021 LIPID PANEL BASIC LIPID PANEL BASIC Lab Routine Mixed hyperlipidemia Expected: 09/01/2021, Expires: 11/01/2021 [facility] Work Phone: Comment on above: Expected: 09/01/2021, Expires: 2 Start: 09-01-2021 End: 11-01-2021 Thyrotropin [Units/volume] in Serum or Plasma TSH BLD Lab Routine Screening for thyroid disorder Expected: 09/01/2021, Expires: 11/01/2021 [facility] Work Phone: Comment on above: Expected: 09/01/2021, Expires: 2 Start: 09-01-2021 End: 11-01-2021 VITAMIN D 25 HYDROXY VITAMIN D 25 HYDROXY Lab Routine Encounter for vitamin deficiency screening Body mass index (BMI) 34.0-34.9, adult Expected: 09/01/2021, Expires: 11/01/2021 [facility] Work Phone: Comment on above: Expected: 09/01/2021, Expires: 2 Start: 08-09-2021 Mammography MAMMOGRAM [facility] Start: 2021 RSV Vaccine (1 - 1-dose 75+ series) RSV Vaccine (1 - 1-dose 75+ series) [facility] Start: 05-14-2021 ADVANCE DIRECTIVE DISCUSSION ADVANCE DIRECTIVE DISCUSSION [facility] Start: 05-14-2021 DEPRESSION ASSESSMENT DEPRESSION ASSESSMENT [facility] Start: 12-19-2019 Colonoscopy COLONOSCOPY [facility] Start: 12-19-2019 COLORECTAL CANCER SCREENING COLORECTAL CANCER SCREENING [facility] Start: 07-17-2011 BONE DENSITY BONE DENSITY [facility] Start: 07-13-2011 Medicare Annual Wellness Visit Medicare Annual Wellness Visit [facility] Start: 2006 RSV Vaccine (1 - 1-dose 60+ series) RSV Vaccine (1 - 1-dose 60+ series) [facility] Start: 1996 SHINGRIX VACCINE (1 of 2) SHINGRIX VACCINE (1 of 2) [facility] Start: 07-17-1991 COLOGUARD (FIT-DNA) COLOGUARD (FIT-DNA) [facility] Start: 07-17-[address] COLONOGRAPHY [facility] Start: 07-17-1991 FECAL OCCULT BLOOD FECAL OCCULT BLOOD [facility] Start: 07-17-1991 SIGMOIDOSCOPY SIGMOIDOSCOPY [facility] Start: 1965 Urine microalbumin profile [facility] Start: 1964 BP CONTROLLED (<130/80) BP CONTROLLED (<130/80) [facility] Start: 1964 HEPATITIS C SCREENING HEPATITIS C SCREENING [facility] Start: 1964 Hepatitis C screening Hepatitis C Screening [facility] End: 11-18-2022 Ct abdomen & pelvis w/contrast material CT ABD/PEL W IVCON Radiology Routine Diverticulitis RLQ abdominal pain Lower abdominal pain 1 Occurrences starting 10/19/2021 until 11/18/2022 [facility] Work Phone: Comment on above: 1 Occurrences starting 10/19/2021 until 11/18/2022 End: 09-21-2023 Ct abdomen & pelvis w/contrast material CT ABD/PEL W IVCON Radiology STAT Abdominal distension (gaseous) Nausea RUQ abdominal pain 1 Occurrences starting 08/22/2022 until 09/21/2023 [facility] Work Phone: Comment on above: 1 Occurrences starting 08/22/2022 until 09/21/2023 End: 11-29-2024 CT Head WO contrast CT BRAIN WO IVCON Radiology STAT Word finding difficulty New onset of headaches after age 50 1 Occurrences starting 10/31/2023 until 11/29/2024 [facility] Comment on above: 1 Occurrences starting 10/31/2023 until 11/29/2024 End: 08-20-2023 DXA-AXIAL SKELETON DXA-AXIAL SKELETON Radiology Routine Screening for osteoporosis Asymptomatic menopause 1 Occurrences starting 07/21/2022 until 08/20/2023 [facility] Work Phone: Comment on above: 1 Occurrences starting 07/21/2022 until 08/20/2023 End: 08-04-2023 ECG COMPLETE ECG COMPLETE ECG Routine Primary hypertension Palpitations Mixed hyperlipidemia 1 Occurrences starting 08/03/2022 until 08/04/2023 [facility] Work Phone: Comment on above: 1 Occurrences starting 08/03/2022 until 08/04/2023 ECG COMPLETE [facility] Work Phone: Comment on above: Ordered: 04/09/2023 ECG COMPLETE ECG COMPLETE ECG Routine LBBB (left bundle branch block) Presence of cardiac resynchronization therapy defibrillator (ASSISTANT CENTER MANAGER-D) Acute on chronic systolic CHF (congestive heart failure) (HCC) Ordered: 08/07/2023 [facility] Work Phone: Comment on above: Ordered: 08/07/2023 ECG COMPLETE ECG COMPLETE ECG Routine Presence of cardiac resynchronization therapy defibrillator (ASSISTANT CENTER MANAGER-D) Non-ischemic cardiomyopathy (HCC) LBBB (left bundle branch block) Ordered: 11/01/2023 [facility] Work Phone: Comment on above: Ordered: 11/01/2023 ECG COMPLETE ECG COMPLETE ECG Routine Cardiac resynchronization therapy defibrillator (ASSISTANT CENTER MANAGER-D) in place Ordered: 11/03/2024 [facility] Work Phone: Comment on above: Ordered: 11/03/2024 OUTSIDE VENDOR CARDI AC OUTPATIENT EXTENDED RHYTHM RECORDING (WITHOUT TELEMETRY) OUTSIDE VENDOR CARDIAC OUTPATIENT EXTENDED RHYTHM RECORDING (WITHOUT TELEMETRY) Holter Routine Primary hypertension Palpitations Ordered: 08/14/2022 [facility] Work Phone: Comment on above: Ordered: 08/14/2022 OUTSIDE VENDOR CARDI AC OUTPATIENT EXTENDED RHYTHM RECORDING (WITHOUT TELEMETRY) OUTSIDE VENDOR CARDIAC OUTPATIENT EXTENDED RHYTHM RECORDING (WITHOUT TELEMETRY) Holter Routine Cardiac resynchronization therapy defibrillator (ASSISTANT CENTER MANAGER-D) in place Ordered: 11/03/2024 [facility] Comment on above: Ordered: 11/03/2024 Patient Education ED Chest Wall Contusion [facility] Work Phone: SURGICAL PATHOLOGY [facility] Work Phone: Comment on above: Release Upon Ordering for 1 Occurrences starting 12/05/2021, 1 completed UA DIP, URINE (POC) UA DIP, URIN E (POC) Lab Routine Vagina, candidiasis Burning with urination Ordered: 08/22/2023 [facility] Work Phone: Comment on above: Ordered: 08/22/2023 End: 08-07-2025 XR Chest PA and Lateral XR CHEST 2V FRONTAL/LAT Radiology Routine Acute cough 1 Occurrences starting 07/08/2024 until 08/07/2025 [facility] Comment on above: 1 Occurrences starting 07/08/2024 until 08/07/2025 XR Chest PA and Lateral XR CHEST 2V FRONTAL/LAT Radiology Routine Acute cough 07/08/2024 3:31 PM EST [facility] End: 10-23-2024 XR Foot - left AP and Lateral and oblique XR FOOT GENERAL 3V AP/LAT/OBL LEFT Radiology Routine Repetitive stress injury 1 Occurrences starting 09/24/2023 until 10/23/2024 [facility] Work Phone: Comment on above: 1 Occurrences starting 09/24/2023 until 10/23/2024 XR Foot - left AP an d Lateral and oblique XR FOOT GENERAL 3V AP/LAT/OBL LEFT Radiology Routine Repetitive stress injury 09/24/2023 11:15 AM EDT [facility] End: 12-06-2024 XR Lumbar spine 3 Views XR LUMBAR GENERAL 3V AP/LAT/L5-S1 Radiology Routine Acute midline low back pain without sciatica 1 Occurrences starting 11/07/2023 until 12/06/2024 [facility] Work Phone: Comment on above: 1 Occurrences starting 11/07/2023 until 12/06/2024 [facility] Immunizations Immunization Date Immunization Notes Care Provider Fa gideon 07-21-2022 pneumococcal (PCV20) vaccine, 20 valent (PREVNAR 20) Alejandrina Yasir ATHLETIC SCOUT.GEOPHYSICS SCIENTIST Work Phone: [facility] 07-21-2022 pneumococcal Conjuga te, unspecified formulation Alejandrina Yasir ATHLETIC SCOUT.GEOPHYSICS SCIENTIST Work Phone: [facility] Work Phone: 12-29-2020 pneumococcal polysaccharide vaccine, 23 valent Estelita Maradiaga PT Work Phone: [facility] Work Phone: Payers Date Payer Category Payer Self-pay 2013 Private Health Insurance [facility] AARP SUPPLEMENT [id number] 2013-Present [phone] [address] [place] [address] Indemnity [id number] 2013 Private Health Insurance [id number] 2013 Unknown [id number] 2011 Medicare MEDICARE MEDICAR E A AND B [id number] 2011-Present [phone] [address] [address] [place] [address] Medicare [id number] 2011 Medicare [id number] 2011 Medicare [id number] Medicare [id number] Unknown NOLANARE/AKRO [id number] Unknown [id number] Unknown [id number] Unknown [id number] Unknown [id number] Unknown [id number] Unknown [id number] Unknown [id number] Social History Date Type Detail Facility Start: 09-03-2020 End: 11-13-2024 Tobacco smoking status NHIS Ex-smoker [facility] End: 10-22-2002 History of tobacco use Current smoker [facility] End: 10-22-2002 History of tobacco use Cigarette Smoker [facility] Start: 07-01-2021 End: 11-03-2024 Alcohol intake Current non-drinker of alcohol (finding) [facility] Start: 1945 Sex Assigned At Not on file [facility] Start: 03-21-2020 End: 03-10-2022 Exposure to SARS-CoV-2 (event) Not sure [facility] Start: 09-03-2020 End: 01-15-2024 Tobacco use and exposure Smokeless tobacco non-user [facility] Start: 09-27-2022 End: 10-14-2022 History of Social function [facility] Work Phone: Start: 09-27-2022 End: 10-14-2022 Tobacco use panel [facility] Work Phone: Adult Depression Screening Assessment 0 [facility] Work Phone: Has the [employer], [employer], or water [facility] threatened to shut off services in your home in past 12Mo No [facility] How hard is it for y ou to pay for the very basics like food, housing, medical care, and heating Not very hard [facility] (I/We) worried paulo er (my/our) food would run out before (I/we) got money to buy more. Never true [facility] Start: 08-29-2023 [facility] if ever smoked [facility] Start: 1945 Sex Assigned At Female W [facility] NEGATED: Highlighted row - - [facility] Work Phone: Medical Equipment Procedure Code Equipment Code Equipment Original Text Equipment Identifier Dates Sling Dennis Polypropylene 60x1.1cm Suburethral Transobturator Tape - [id number] Start: 05-24-2020 [id number] Baltazar lt Xt Hf Quad Licensed Loan Officer-D [id number] Start: 2023 [id number] Caps urefix Novus [id number] Start: 2023 [id number] Narinder in Stability Quad Mri Surescan [id number] Start: 2023 [id number] [id number] Spr int Quattro Secure S [id number] Start: 2023 Goals Date Patient Goal Desired Activity /State Personal health goal Functional Status Date Assessment Result Facility 11-18-2023 Are you deaf, or do you have serious difficulty hearing No 11/18/2023 1:06 PM Lena Holloway, CARO No [facility] 11-18-2023 Are you blind, or do you have serious difficulty seeing, even when wearing glasses No 11/18/2023 1:06 PM Lena Holloway, CARO No [facility] 11-18-2023 Do you have serious difficulty walking or climbing stairs No 11/18/2023 1:06 PM Lena Holloway, CARO No [facility] 11-18-2023 Do you have difficul ty dressing or bathing No 11/18/2023 1:06 PM Lena Holloway, CARO No [facility] 11-18-2023 Because of a physica l, mental, or emotional condition, do you have difficulty doing errands alone such as visiting a physician's office or shopping No 11/18/2023 1:06 PM EDT Lena Lennon RN No [facility] NEGATED: Highlighted row Functional performance Functional status health issues are not documented Disease [facility] [employer] Work Phone: Mental Status Date Assessment Result Facility 11-18-2023 Because of a physical, mental, or emotional condition, do you have serious difficulty concentrating, remembering, or making decisions No 11/18/2023 1:06 PM EDT Lena Lennon RN No [facility] NEGATED: Highlighted row Cognitive function [Interpretation] Cognitive status health issues are not documented Disease [facility] [employer] Work Phone: Clinical Notes 04-27-2020 to 11-13-2024 Note Date & Type Note Facility 11-13-2024 Discharge summary [facility] 11-13-2024 Radiology Diagnostic study note [facility] Imaging Services [address] [place] [address] [id number] Chest without Contrast MR#: [id number] Acct: [id number] Name: SANDRA SCHMITZ Rep #: [id number] : 1945 F 79 From: Julianna Lanza MD PCP: Dr. Mandeep Houser, DO Status: RE G ER Study:Chest without Contrast Date of Exam: 11/13/24 Exam# [id number] Ordering Dr: Mykel Goldebrg MD PROCEDURE: CHEST WITHOUT CONTRAST 11/13/2024 REASON [...] acute finding on noncontrast examination. Reading Location: [id number] CC: Dr. Jose Goldberg MD; Dr. Mandeep Houser DO ~ Night Clerk: Signed [facility] 11-13-2024 Radiology Diagnostic study note [facility] Imaging Services [address] [place] [id number] Brain/Head without Contrast MR#: [id number] Acct: [id number] Name: SANDRA SCHMITZ Rep #: [id number] : 1945 F 79 From: Julianna Lanza MD PCP: Dr. Mandeep Houser DO Status: RE G ER Study:Brain/Head without Contrast Date of Exa m: 11/13/24 Exam# [id number] Ordering Dr: Mykel Goldberg MD EXAM: BRAIN/HEAD [...] IMPRESSION: No acute intracranial finding. Reading Location: [facility] CC: Dr. Jose Goldberg MD; Dr. Mandeep Houser DO ~ Night Clerk: Signed [facility] 11-13-2024 Radiology Diagnostic study note [facility] Imaging Services [address] [place] [address] Hand Min 3 Views MR#: [id number] Acct: [id number] Name: NADIRSANDRA Rep #: [id number] : 1945 F 79 From: Julianna Lanza MD PCP: Dr. Mandeep Houser DO Status: RE G ER Study:Hand Min 3 Views Date of Exam: 08/05 Exam# [id number] Ordering Dr: Mykel Goldberg MD PROCEDURE: HAND MIN 3 VIEWS 11/13/2024 REASON FOR EXAM: PAIN/INJURY TECHNIQUE: HAND MIN 3 VIEWS, right COMPARISON: None. FINDINGS: Bones: No acute fracture. No aggressive osseous lesions. Joints: Normal alignment. Moderate degenerative changes. Soft tissues: Soft tissues are unremarkable. RAD/Hand Min 3 Views IMPRESSION: DEGENERATIVE OSTEOARTHROSIS. NO ACUTE FINDINGS. Reading Location: [facility] CC: Dr. Jose Goldberg MD; Dr. Mandeep Houser DO ~ Night Clerk: Signed [facility] 11-13-2024 Radiology Diagnostic study note [facility] Imaging Services [address] [place], [place] [id number] Chest 1 View (Portable) MR#: [id number] Acct: [id number] Name: SANDRA SCHMITZ Rep #: [id number] : 1945 F 79 From: Julianna Lanza MD PCP: Dr. Mandeep Houser DO Status: RE G ER Study:Chest 1 View (Portable) Date of Exam: 11/13/24 Exam# [id number] Ordering Dr: Mykel Goldberg MD PROCEDURE: CHEST 1 VIEW (PORTABLE) 11/13/2024 REASON FOR EXAM: FALL/INJURY CHEST TECHNIQUE: Frontal view of the chest. COMPARISON: Chest radiograph 03/27/2024. FINDINGS: Hardware: Left chest wall pacemaker in place. Heart: Stable mild cardiomegaly. Lungs: Low lung volumes, xlyp-alvneul-hxqi-right. Visualization of the left lung is limited due to overlying pacemaker. No large consolidation, pleural effusion or pneumothorax. Bones: Degenerative changes are identified within the thoracic spine. RAD/Chest 1 View (Portable) IMPRESSION: Cardiomegaly. No acute findings. Reading Location: [facility] CC: Dr. Jose Goldberg MD; Dr. Mandeep Houser DO ~ Night Clerk: Signed [facility] 11-13-2024 Discharge summary Note Date/Time November 13, 2024 10:33pm [facility] Medical Records Department [address] [place] [address] Emergency Department Summary 11/13/24 MR#: [id number] Acct: [id number] Name: SANDRA SCHMITZ Rep #:[id number] : 1945 79 From: Jose Goldberg MD [...] anticoagulants but takes a baby aspirin daily. [facility] Medical History Obesity Former tobacco [...] % (Auto) Cancelled Lymph % (Auto) Cancelled Holmes % (Auto) Cancelled Eos % (Auto) Cancelled [...] Drop Cells Cancelled Ovalocytes Cancelled Stomatocytes Cancelled Lua-Coin Bodies Cancelled Rocky Cells Cancelled Bite Cells [...] Clarity Clear Urine pH 6.5 Ur Specific Hubbard 1.010 Urine Protein 15 H Urine Glucose [...] % (Auto) 61.4 Lymph % (Auto) 26.8 Holmes % (Auto) 8.8 Eos % (Auto) 1.3 [...] Target Cells Tear Drop Cells Ovalocytes Stomatocytes Lua-Coin Bodies Rocky Cells Bite Cells Crenated Cell Acanthocytes (Spur) Rouleaux Schistocytes Sodium Potassium Chloride Carbon Dioxide Anion Gap BUN Creatinine Estim Creat Clear Calc Est GFR (MDRD) Non-Af BUN/Creatinine Ratio Glucose Calcium Urine Color Urine Clarity Urine pH Ur Specific Hubbard Urine Protein Urine Glucose (UA) Urine Ketones Urine Occult Blood Urine Nitrite Urine Bilirubin Urine Urobilinogen Ur Leukocyte Esterase Urine RBC Urine WBC Ur Squamous Epith Cells Urine Bacteria Urine Mucus Radiography Diagnostic Testing: Clinical Impression(s) from Imaging Studies Chest X-Ray 11/13/24 18:45 IMPRESSION: Cardiomegaly. No acute findings. Reading Location: [facility] Hand X-Ray 11/13/24 18:46 IMPRESSION: DEGENERATIVE OSTEOARTHROSIS. NO ACUTE FINDINGS. Reading Location: [facility] Brain CT 11/13/24 19:57 IMPRESSION: No acute intracranial finding. Reading Location: [facility] Chest CT 11/13/24 19:57 IMPRESSION: Visualization is limited by motion artifact and streak artifact from left chest wall pacemaker. No acute finding on noncontrast examination. Reading Location: [facility] Rhythm Strip Rhythm Strip: Sinus Rhythm [...] is an option for this. Print Language: Greenlandic Disposition Disposition: Home, Self Care What to do if you have Problems For any increased pain, shortness of breath, bleeding, nausea or vomiting, chestpain, or any unexpected problems, contact your Primary Care Provider. Call [facility] ([phone]) or report to the closest Emergency Room. Call 911 if necessary. 11/13/242232 <Electronically signed by Jose Goldberg MD> Cosigner Signature (if applicable): CC: Dr. Mandeep Houser DO ~ Signed [facility] Work Phone: 1(297) 288-297806-25-2025 NoteHNO ID: [id number] Author: CHASIDY YLN MA Service: ? Author Type: Italian Lecturer Type: Progress Notes Filed: 11/05/2024 14:20 Note [...] Chasidy Lyn MA November 05, 2024 2:[facility] History of Present illness Narrative* Chasidy [...] 05, 2024 2:18 PM documented in this encounterCincinnati [facility] NotePatient Outreach (NETNAV) SANDRA SCHMITZ ([id number]) 1945 F Date Time Provider Department 11/05/24 [...] Health Navigation Outreach [[id number]] [facility] Pres[facility] as of 11/05/2024 - [...] right [M19.071] 08/02/2022 Coronary artery disease involving alutiiq lopez*08/02/2022 Vitamin D deficiency [E55.9] 08/02/2022 Somatic dysfunction of head region [M99.00] 08/10/2022 Chronic neck pain [M54.2, G89.29] 08/24/2022 Chronic bronchitis (HCC) [J42] 09/11/2022 SVT (suprave (more content not included)...[facility]06-23-2025 NoteHNO ID: [id number] Author: DILCIA HOOKS MA Service: ? Author Type: Italian Lecturer Type: Progress Notes Filed: 11/03/2024 15:58 Note Text: EVENT MONITOR DISPOSABLE PATCH INSTRUCTIONS Patient Name: Sandra Schmitz [facility] Number: [id number] Skin prepped and cleansed with alcohol Patch secured to prepped area Monitor Activated Serial #: [id number] Patient Instructed: Prescribed order timeframe Bathing guidelines Usage of event button and diary documentation Return of monitor at the end of prescribed order Call with problems [phone] or [phone]. [phone] Patient expresses a good understanding of instructions Dilcia Hooks [facility]06-23-2025 History of Present illness Narrative* Dilcia Hooks MA - 11/03/2024 3:57 PM EDT EVENT MONITOR DISPOSABLE PATCH INSTRUCTIONS Patient Name: Sandra Schmitz [facility] Number: [id number] Skin prepped and cleansed with alcohol Patch secured to prepped area Monitor Activated Serial #: [id number] Patient Instructed: Prescribed order timeframe Bathing guidelines Usage of event button and diary documentation Return of monitor at the end of prescribed order Call with problems [phone] or [phone]. [phone] Patient expresses a good understanding of instructions Dilcia Hooks MA documented in this encounterCincinnati [facility]06-23-2025 History of Present illness Narrative* HillMorenita youMELI.GEOPHYSICS SCIENTIST - 11/03/2024 3:30 PM EDT Images from the original note were not included. [facility] Department of Cardiovascular Medicine SECTION OF ELECTROPHYSIOLOGY AND PACING OUTPATIENT VISIT DATE November 03, 2024 OUTPATIENT VISIT TYPE ESTABLISHED PRIMARY CARE PHYSICIAN: Mandeep Houser [address] [place] [address] CHIEF COMPLAINT: Follow Up HISTORY OF PRESENT ILLNESS: Ms. Schmitz is a 79 year old female, patient of Dr. Wellington and Dr. Wells who presents today for a cardiovascular medicine follow-up visit regarding ASSISTANT CENTER MANAGER-D which was placed in July of last year during which time she had been admitted to [facility] for acute HFrEF and inability to initiate GDMT. She was deemed excellent candidate for ASSISTANT CENTER MANAGER therapy and thus had MDT ASSISTANT CENTER MANAGER-D inserted. Since then, Ms. Schmitz reports that overall she has been feeling well. She has noted over the last several months that when shh is anxious or rushing, she may feel her heart racing with some palpitations. When she rests, symptoms resolve. Overall, since device insertion, she has significantly improved functional capacity. She is compliant with all medications. PMH: Chronic NICM s/p MDT ASSISTANT CENTER MANAGER-D, dyslipidemia, hypothyroidism, Factor V Leiden, IBS, h/o gout PAST MEDICAL HISTORY Diagnosis Date Acute acalculous cholecystitis 05/30/2020 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 09/22/2020 Acute on chronic systolic CHF (congestive heart failure) ([facility]) 05/03/2020 Aspiration pneumonia ([facility]) 05/30/2020 Chest pain 05/03/2020 [...] Testing. IMPRESSION/PLAN: Chronic Non-ischemic cardiomyopathy s/p MDT ASSISTANT CENTER MANAGER-D (07/2023) ECG today demonstrates atrial sensed, ventricular [...] SGL2i: N/A due to intolerance Device: MDT ASSISTANT CENTER MANAGER-D (BiV pacing 87.1%) Will contact patient with results and plan. Will arrange for 6 [address] up [address]. [place] withdevice check prior. If BiVP is optimized, then can extend to annual follow up. CONTACT INFORMATION: Morenita Hill APRN.TIM Cardiology [address] [facility] [address], [place] [address] Dept: [phone] Dept documented in this encounterCincinnati [facility]06-23-2025 NoteHNO ID: [id number] Author: MORENITA HILL APRN.TIM Service: ? Author Type: Nurse Practitioner Type: Progress Notes Filed: 11/03/2024 15:59 Note Text: [facility] [place] [facility] Department of Cardiovascular Medicine SECTION OF ELECTROPHYSIOLOGY AND PACING OUTPATIENT VISIT DATE November 03, 2024 OUTPATIENT VISIT TYPE ESTABLISHED PRIMARY CARE PHYSICIAN: Mandeep Houser [address] [place] [address] CHIEF COMPLAINT: Follow Up HISTORY OF PRESENT ILLNESS: Ms. Schmitz is a 79 year old female, patient of Dr. Wellington and Dr. Wells who presents today for a cardiovascular medicine follow-up visit regarding ASSISTANT CENTER MANAGER-D which was placed in July of last year during which time she had been admitted to [facility] for acute HFrEF and inability to initiate GDMT. She was deemed excellent candidate for ASSISTANT CENTER MANAGER therapy and thus had MDT ASSISTANT CENTER MANAGER-D inserted. Since then, Ms. Schmitz reports that overall she has been feeling well. She has noted over the last several months that when shh is anxious or rushing, she may feel her heart racing with some palpitations. When she rests, symptoms resolve. Overall, since device insertion, she has significantly improved functional capacity. She is compliant with all medications. PMH: Chronic NICM s/p MDT ASSISTANT CENTER MANAGER-D, dyslipidemia, hypothyroidism, Factor V Leiden, IBS, h/o gout PAST MEDICAL HISTORY Diagnosis Date Acute acalculous cholecystitis 05/30/2020 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 09/22/2020 Acute on chronic systolic CHF (congestive heart failure) ([facility]) 05/03/2020 Aspiration pneumonia ([facility]) 05/30/2020 Chest pain 05/03/2020 Chest pressure 01/23/2013 Chronic diastolic congestive heart failure ([facility]) 02/14/2021 Clostridium difficile diarrhea 09/28/2020 Complete uterovaginal prolapse Cystocele, midline Essential hypertension 06/14/2020 Homozygous Factor V Leiden mutation ([facility]) 05/03/2020 Hypothyroidism IBS (irritable [...] capsule by mouth thre (more content not included)...[facility]06-23-2025 NoteHNO ID: [id number] Author: PILI WELLS MD Service: ? Author Type: Physician Type: Progress Notes Filed: 11/09/2024 17:30 Note Text: [facility] [place] [facility] SECTION OF HEART FAILURE and CARDIAC TRANSPLANT MEDICINE [facility] OUTPATIENT VISIT DATE November 03, 2024 OUTPATIENT VISIT TYPE Established PRIMARY CARE PHYSICIAN: Mandeep Houser [address] [place] [address] CHIEF COMPLAINT: Follow Up HISTORY OF PRESENT ILLNESS: Sandra Schmitz is a 78 year old female with a medical history that includes non-ischemic CM, HTN, Hypothyroidism, LBBB s/p ASSISTANT CENTER MANAGER-D who is referred to me for heart failure management. Sandra Schmitz was initially diagnosed with non-ischemic CM ~ 4 yrs ago and was doing well on losartan and metoprolol. She had progressive sxs of dyspnea on exertion, therefore she was started on entresto and farxiga and her sxs persisted and she was admitted locally in [place] and then transferred to for ASSISTANT CENTER MANAGER consideration. Interval History: Sandra Schmitz was last seen in this clinic on 01/15/24. Since the last visit Sandar Schmitz, has done well. On follow up [...] LVEF 40%, LVEdd 4.8cm. LBBB: chronic. S/p ASSISTANT CENTER MANAGER 07/2023 Non-obstructive CAD: stable, ischemic testing recently [...] pressure 01/23/2013 Chronic diastolic congestive heart failure ([facility]) 02/14/2021 Clostridium difficile diarrhea [...] Short of breath, sympto (more content not included)...[facility] 11-03-2024 History of Present illness Narrative* Pili Wells MD - 11/03/2024 2:17 PM EDT Images from the original note were not included. [facility] [place] [facility] SECTION OF HEART FAILURE and CARDIAC TRANSPLANT MEDICINE [facility] OUTPATIENT VISIT DATE November 03, 2024 OUTPATIENT VISIT TYPE Established PRIMARY CARE PHYSICIAN: Mandeep Houser [address] [place] [address] CHIEF COMPLAINT: Follow Up HISTORY OF PRESENT ILLNESS: Sandra Schmitz is a 78 year old female with a medical history that includes non-ischemic CM, HTN, Hypothyroidism, LBBB s/p ASSISTANT CENTER MANAGER-D who is referred to me for heart failure management. Sandra Schmitz was initially diagnosed with non-ischemic CM ~ 4 yrs ago and was doing well on losartan and metoprolol. She had progressive sxs of dyspnea on exertion, therefore she was started on entresto and farxiga and her sxs persisted and she was admitted locally in [place] and then transferredto for ASSISTANT CENTER MANAGER consideration. Interval History: Sandra Schmitz was last [...] LVEF 40%, LVEdd 4.8cm. LBBB: chronic. S/p ASSISTANT CENTER MANAGER 07/2023 Non-obstructive CAD: stable, ischemic testing recently with no ischemia or infarction. 06/2023 Nuc SPECT: no ischemia or infarction. 10/2021 Cath: mod LAD, D1 prox 40%, mild RCA disease dominant, EF 35%. Hx of HTN: PAST MEDICAL HISTORY Diagnosis Date Acute acalculous cholecystitis 05/30/2020 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 09/22/2020 Acute on chronic systolic CHF (congestive heart failure) ([facility]) 05/03/2020 Aspiration pneumonia ([facility]) 05/30/2020 Chest pain 05/03/2020 Chest pressure 01/23/2013 Chronic diastolic congestive heart failure ([facility]) 02/14/2021 Clostridium difficile diarrhea 09/28/2020 Complete uterovaginal prolapse Cystocele, midline Essential hypertension 06/14/2020 Homozygous Factor V Leiden mutation ([facility]) 05/03/2020 Hypothyroidism IBS (irritable [...] to tingling/BADILLO - Vasodilators: no - Device: ASSISTANT CENTER MANAGER-D - Cardiomems: no - Other: lasix 20mg [...] above. Continues to report symptomatic improvement with ASSISTANT CENTER MANAGER. Echo 08/2023 reviewed - LVEF remains low, LV not as dilated, MR improved as well. + LVH GDMT: as above, increase toprol XL to 50mg daily Labs 07/08/24 reviewed: K 4.9, Cr 0.85, NT pro 2.1K Due to suboptimal ASSISTANT CENTER MANAGER pacing increase toprol XL to 50mg daily --> seeing EP after this appointment. Discussed amyloid testing as well --> she doesn't wish to pursue currently 2. Non-obsctructive CAD: on aspirin and toprol as above On aspirin 81mg daily, not on statin - reports intolerance. 3. PVCs; LBBB s/p ASSISTANT CENTER MANAGER-D -- suboptimal ASSISTANT CENTER MANAGER pacing: increasing toprol XL given PVCs on [...] Wells MD [facility] [place] [address] Appointment: [phone] documented in this encounterCincinnati Children'[facility]06-23-2025 Instructions* Patient Instructions* Pili Wells [...] and weight daily. Please notify us via Sr.Pago if your Systolic BP (top number) < [...] heart kidney injury risk Please send a [employer] message or call with any questions or concerns: Outpatient Number: [phone] Thank you, Pili Wells MD [facility] [address], [place] [address] For [facility] patients , contact: [facility]- Section Of Heart Failure and Cardiac Transplant Medicine [facility] [place] [facility] - Desk [phone] [id number] [facility] Nurse Line and for Refills- call [phone] [facility] Scheduling Line- to make appointments- call [phone] documented in this encounterCincinnati Children'[facility]06-10-2025 NoteHNO ID: [id number] Author: MANDEEP HOUSER, DO Service: ? Author [...] on chronic systolic CHF (congestive heart failure) ([facility]) 05/03/2020 Aspiration pneumonia ([facility]) 05/30/2020 Chest pain 05/03/2020 Chest pressure 01/23/2013 Chronic diastolic congestive heart failure ([facility]) 02/14/2021 Clostridium difficile diarrhea 09/28/2020 Complete uterovaginal prolapse Cystocele, midline Essential hypertension 06/14/2020 Homozygous Factor V Leiden mutation ([facility]) 05/03/2020 Hypothyroidism IBS (irritable [...] right head, [id number] Right (more content not included)...[facility]06-10-2025 History of Present illness Narrative* Mandeep [...] on chronic systolic CHF (congestive heart failure) ([facility]) 05/03/2020 Aspiration pneumonia ([facility]) 05/30/2020 Chest pain 05/03/2020 Chest pressure 01/23/2013 Chronic diastolic congestive heart failure ([facility]) 02/14/2021 Clostridium difficile diarrhea 09/28/2020 Complete uterovaginal prolapse Cystocele, midline Essential hypertension 06/14/2020 Homozygous Factor V Leiden mutation ([facility]) 05/03/2020 Hypothyroidism IBS (irritable [...] plan. See patient instructions. Mandeep Houser DO [address] [place] [address] documented in this encounterCincinnati [facility]05-20-2025 NoteHNO ID: [id number] Author: MANDEEP HOUSER DO Service: ? Author [...] on chronic systolic CHF (congestive heart failure) ([facility]) 05/03/2020 Aspiration pneumonia ([facility]) 05/30/2020 Chest pain 05/03/2020 Chest pressure 01/23/2013 Chronic diastolic congestive heart failure ([facility]) 02/14/2021 Clostridium difficile diarrhea 09/28/2020 Complete uterovaginal prolapse Cystocele, midline Essential hypertension 06/14/2020 Homozygous Factor V Leiden mutation ([facility]) 05/03/2020 Hypothyroidism IBS (irritable [...] leg Right lower leg (more content not included)...[facility] 09-15-2024 NoteHNO ID: [id number] Author: DORINDA YOUNG MA Service: ? Author Type: Italian Lecturer Type: Progress Notes Filed: 09/15/2024 12:40 Note Text: POPULATION HEALTH NAVIGATION OUTREACH Action/FYI Called and left a message to call [phone], to discuss health maintenance items that are [...] Dorinda Young MA September 15, 2024 12:39 [facility]05-05-2025 History of Present illness Narrative* Dorinda Young MA - 09/15/2024 12:39 PM EDT POPULATION HEALTH NAVIGATION OUTREACH Action/FYI Called and left a message to call [phone], to discuss health maintenance items that are [...] 15, 2024 12:39 PM documented in this encounterCincinnati [facility]05-05-2025 NotePatient Outreach (NETNAV) SANDRA SCHMITZ ([id number]) 1945 F Date Time Provider Department 09/15/24 DORINDA YOUNG During your visit today, we recorded the following information about you: Dorinda Young MA 09/15/2024 12:40 PM Addendum POPULATION HEALTH NAVIGATION OUTREACH Action/MARIVEL Called and left a message to call [phone], to discuss health maintenance items that are [...] right [M19.071] 08/02/2022 Coronary artery disease involving alutiiq lopez*08/02/2022 Vitamin D deficiency [E55.9] 08/02/2022 Somatic dysfunction of head region [M99.00] 08/10/2022 Chronic neck pain [M54.2, G89.29] 08/24/2022 Chronic bronchitis (HCC) [J42] 09/11/2022 SVT (supraventricular tachycardia) (HCC) [I47.1*09/11/2022 Combined systolic and diastolic cardi (more content not included)...[facility]04-17-2025 NoteHNO ID: [id number] Author: MANDEEP HOUSER, DO Service: ? Author [...] on chronic systolic CHF (congestive heart failure) ([facility]) 05/03/2020 Aspiration pneumonia ([facility]) 05/30/2020 Chest pain 05/03/2020 Chest pressure 01/23/2013 Chronic diastolic congestive heart failure ([facility]) 02/14/2021 Clostridium difficile diarrhea 09/28/2020 Complete uterovaginal prolapse Cystocele, midline Essential hypertension 06/14/2020 Homozygous Factor V Leiden mutation ([facility]) 05/03/2020 Hypothyroidism IBS (irritable [...] ankle arthrosis bracing ASSESSMENT/PLAN: (more content not included)...[facility]04-17-2025 History of Present illness Narrative* Mandeep [...] on chronic systolic CHF (congestive heart failure) ([facility]) 05/03/2020 Aspiration pneumonia ([facility]) 05/30/2020 Chest pain 05/03/2020 Chest pressure 01/23/2013 Chronic diastolic congestive heart failure (HCC) 02/14/2021 Clostridium difficile diarrhea 09/28/2020 Complete uterovaginal prolapse Cystocele, midline Essential hypertension 06/14/2020 Homozygous Factor V Leiden mutation ([facility]) 05/03/2020 Hypothyroidism IBS (irritable [...] See patient instructions. Mandeep Houser DO [address] [place] [address] documented in this encounterCincinnati [facility]04-16-2025 Miscellaneous Notes* Telephone Encounter - Radha Buchanan - 08/27/2024 10:22 AM EDT Call to patient to r/s. Patient is driving out from [place] and would prefer all appointments same day as Dr. Wells. Rescheduled to Friday 11/03 with device check, OV with Morenita Hill and Dr. Wells. * Telephone Encounter - Radha Buchanan - 08/27/2024 10:21 AM EDT ----- Message from Dilcia Bonilla MD sent at 08/23/2024 9:30 AM EDT ----- I saw her in '24 Please reschedule with Mercedes + device documented in this encounterCincinnati [facility]04-16-2025 Telephone encounter Note * Telephone Encounter - Radha Buchanan - 08/27/2024 10:22 AM EDT Call to patient to r/s. Patient is driving out from [place] and would prefer all appointments same day as Dr. Wells. Rescheduled to Friday 11/03 with device check, OV with Morenita Hill and Dr. Wells. [facility]04-16-2025 Telephone encounter Note* Telephone Encounter - Radha Buchanan - 08/27/2024 10:21 AM EDT ----- Message from Dilcia Bonilla MD sent at 08/23/2024 9:30 AM EDT ----- I saw her in '24 Please reschedule with Mercedes + device [facility]04-14-2025 Instructions* Patient Instructions* Mandeep Houser DO - 08/25/2024 4:32 PM EDT Magnesium glycinate 250-500 mg in the evening with supper Use as a capsule or powder or tablet To help muscles documented in this encounterCincinnati [facility]03-25-2025 NoteHNO ID: [id number] Author: MANDEEP HOUSER DO Service: ? Author [...] pain - ICD (more content not included)... [facility]03-25-2025 History of Present illness Narrative* Mandeep [...] on chronic systolic CHF (congestive heart failure) ([facility]) 05/03/2020 Aspiration pneumonia ([facility]) 05/30/2020 Chest pain 05/03/2020 Chest pressure 01/23/2013 Chronic diastolic congestive heart failure ([facility]) 02/14/2021 Clostridium difficile diarrhea 09/28/2020 Complete uterovaginal prolapse Cystocele, midline Essential hypertension 06/14/2020 Homozygous Factor V Leiden mutation ([facility]) 05/03/2020 Hypothyroidism IBS (irritable [...] See patient instructions. Mandeep Houser DO [address] [place] [address] documented in this encounterCincinnati [facility]03-10-2025 NoteHNO ID: [id number] Author: MANDEEP HOUSER DO Service: ? Author [...] October Would like to have her medical regulatory affairs manager more local for better accessibility She had labs and a chest xray Currently Cough, chest congestion, symptoms are improved. Just still with some fatigue but seems to be getting better. No further cough, no sputum production, no fevers or chills. Heart failure. Has an echo to get scheduled and completed for the regulatory affairs manager, taking her medications as prescribed. PAST MEDICAL HISTORY Diagnosis Date Acute acalculous cholecystitis 05/30/2020 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 09/22/2020 Acute on chronic systolic CHF (congestive heart failure) ([facility]) 05/03/2020 Aspiration pneumonia ([facility]) 05/30/2020 Chest pain 05/03/2020 Chest pressure 01/23/2013 Chronic diastolic congestive heart failure ([facility]) 02/14/2021 Clostridium difficile diarrhea 09/28/2020 Complete uterovaginal prolapse Cystocele, midline Essential hypertension 06/14/2020 Homozygous Factor V Leiden mutation ([facility]) 05/03/2020 Hypothyroidism IBS (irritable [...] EOMs intact b/l, na (more content not included)...[facility]03-10-2025 History of Present illness Narrative* Mandeep [...] October Would like to have her medical regulatory affairs manager more local for better accessibility She had labs and a chest xray Currently Cough, chest congestion, symptoms are improved. Just still with some fatigue but seems to be getting better. No further cough, no sputum production, no fevers or chills. Heart failure. Has an echo to get scheduled and completed for the regulatory affairs manager, taking her medications as prescribed. PAST MEDICAL HISTORY Diagnosis Date Acute acalculous cholecystitis 05/30/2020 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 09/22/2020 Acute on chronic systolic CHF (congestive heart failure) ([facility]) 05/03/2020 Aspiration pneumonia (HCC) [...] 428.0, ICD10: I50.42 - chronic, managed by [facility] 7. Vitamin D deficiency - ICD9: 268.9, ICD10: E55.9 Increase dose of supplement as d/w her today Mandeep Houser DO Return if no improvement. Follow up with Mandeep Houser DO. To ER if develops chest pain, shortness of breath. Discussed risks, benefits, alternatives, and potential side effects of medications. Patient/Guardian expressed understanding and agreed with the plan. See patient instructions. Mandeep Houser DO [address] [place] [address] documented in this encounterCincinnati [facility]02-25-2025 History of Present illness Narrative* [...] PATIENT PRESENTS WITH AN IMPLANTABLE OR ATTACHED FOOD TECHNOLOGIST: No RADIOLOGY DEPARTMENT: General X-ray: Exam(s) Completed: Chest X-Ray PERIPHERAL IV DATA: Not applicable SIGNED BY: Marino Arevalo July 08, 2024 3:31 PM documented in this encounterCincinnati [facility]02-25-2025 NoteHNO ID: [id number] Author: BOONE NEUMANN Tech Service: ? Author [...] PATIENT PRESENTS WITH AN IMPLANTABLE OR ATTACHED FOOD TECHNOLOGIST: No RADIOLOGY DEPARTMENT: General X-ray: Exam(s) Completed: Chest X-Ray PERIPHERAL IV DATA: Not applicable SIGNED BY: Marino Arevalo July 08, 2024 3:31 [facility]02-25-2025 NoteHNO ID: [id number] Author: MANDEEP HOUSER, DO Service: ? Author [...] October Would like to have her medical regulatory affairs manager more local for better accessibility PAST MEDICAL HISTORY Diagnosis Date Acute acalculous cholecystitis 05/30/2020 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 09/22/2020 Acute on chronic systolic CHF (congestive heart failure) ([facility]) 05/03/2020 Aspiration pneumonia ([facility]) 05/30/2020 Chest pain 05/03/2020 Chest pressure 01/23/2013 Chronic diastolic congestive heart failure (HCC) 02/14/2021 Clostridium difficile diarrhea 09/28/2020 Complete uterovaginal prolapse Cystocele, midline Essential hypertension 06/14/2020 Homozygous Factor V Leiden mutation ([facility]) 05/03/2020 Hypothyroidism IBS (irritable [...] (primary diagnosis) Injection o (more content not included)...[facility]02-25-[facility] History of Present illness Narrative* Mandeep [...] October Would like to have her medical regulatory affairs manager more local for better accessibility PAST MEDICAL HISTORY Diagnosis Date Acute acalculous cholecystitis 05/30/2020 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 09/22/2020 Acute on chronic systolic CHF (congestive heart failure) ([facility]) 05/03/2020 Aspiration pneumonia ([facility]) 05/30/2020 Chest pain 05/03/2020 Chest pressure 01/23/2013 Chronic diastolic congestive heart failure ([facility]) 02/14/2021 Clostridium difficile diarrhea 09/28/2020 Complete uterovaginal prolapse Cystocele, midline Essential hypertension 06/14/2020 Homozygous Factor V Leiden mutation ([facility]) 05/03/2020 Hypothyroidism IBS (irritable [...] chronic, recheck labs Check CXR F/u with [facility] - NT PRO BNP - COMPLETE BLOOD [...] plan. See patient instructions. Mandeep Houser DO [address] [place] [address] documented in this encounterCincinnati [facility]02-25-2025 Instructions* Patient Instructions* Mandeep Houser DO - 07/08/2024 2:50 PM EST [facility] local options Dr.S[facility] Dr. [place]s Options for mood Low dose of valerian root 250-500 mg in the evening Light box therapy consideration of light at 10,000 Lux strength- 20-30 minutes a day in the AM fromFeb through August to help mood, can buy this on [employer] cell [employer] for use documented in this encounterCincinnati [facility]02-18-2025 Telephone encounter Note * Telephone Encounter - Mandeep Houser DO - 07/01/2024 12:19 PM EST The following approved medication requests have been transmitted electronically. Requested Prescriptions Signed Prescriptions Disp Refills doxycycline (VIBRA-TABS) 100 mg tablet 20 tablet 0 Sig: Take 1 tablet by mouth two times a day for 10 days. Authorizing Provider: MANDEEP HOUSER DO [facility]02-18-2025 Miscellaneous Notes* Telephone Encounter - Mandeep Houser DO - 07/01/2024 12:19 PM EST The following approved medication requests have been transmitted electronically. Requested Prescriptions Signed Prescriptions Disp Refills doxycycline (VIBRA-TABS) 100 mg tablet 20 tablet 0 Sig: Take 1 tablet by mouth two times a day for 10 days. Authorizing Provider: MANDEEP HOUSER DO documented in this encounterCincinnati [facility]02-07-2025 NoteHNO ID: [id number] Author: MANDEEP HOUSER DO Service: ? Author [...] on chronic systolic CHF (congestive heart failure) ([facility]) 05/03/2020 Aspiration pneumonia ([facility]) 05/30/2020 Chest pain 05/03/2020 Chest pressure 01/23/2013 Chronic diastolic congestive heart failure (HCC) 02/14/2021 Clostridium difficile diarrhea 09/28/2020 Complete uterovaginal prolapse Cystocele, midline Essential hypertension 06/14/2020 Homozygous Factor V Leiden mutation ([facility]) 05/03/2020 Hypothyroidism IBS (irritable [...] pain - ICD (more content not included)... [facility]02-07-[facility] History of Present illness Narrative* Mandeep [...] on chronic systolic CHF (congestive heart failure) ([facility]) 05/03/2020 Aspiration pneumonia ([facility]) 05/30/2020 Chest pain 05/03/2020 Chest pressure 01/23/2013 Chronic diastolic congestive heart failure ([facility]) 02/14/2021 Clostridium difficile diarrhea [...] plan. See patient instructions. Mandeep Houser DO [address] [place] [address] documented in this encounterCincinnati [facility]01-17-2025 NoteHNO ID: [id number] Author: MANDEEP HOUSER DO Service: ? Author [...] pressure 01/23/2013 Chronic diastolic congestive heart failure ([facility]) 02/14/2021 Clostridium difficile diarrhea 09/28/2020 Complete uterovaginal prolapse Cystocele, midline Essential hypertension 06/14/2020 Homozygous Factor V Leiden mutation ([facility]) 05/03/2020 Hypothyroidism IBS (irritable [...] neurovascular tone of ar (more content not included)...[facility]01-17-2025 History of Present illness Narrative* Mandeep [...] on chronic systolic CHF (congestive heart failure) ([facility]) 05/03/2020 Aspiration pneumonia ([facility]) 05/30/2020 Chest pain 05/03/2020 Chest pressure 01/23/2013 Chronic diastolic congestive heart failure ([facility]) 02/14/2021 Clostridium difficile diarrhea 09/28/2020 Complete uterovaginal prolapse Cystocele, midline Essential hypertension 06/14/2020 Homozygous Factor V Leiden mutation ([facility]) 05/03/2020 Hypothyroidism IBS (irritable [...] plan. See patient instructions. Mandeep Houser DO [address] [place] [address] documented in this encounterCincinnati [facility]12-30-2024 NoteHNO ID: [id number] Author: MANDEEP HOUSER DO Service: ? Author [...] on chronic systolic CHF (congestive heart failure) ([facility]) 05/03/2020 Aspiration pneumonia ([facility]) 05/30/2020 Chest pain 05/03/2020 Chest pressure 01/23/2013 Chronic diastolic congestive heart failure ([facility]) 02/14/2021 Clostridium difficile diarrhea 09/28/2020 Complete uterovaginal prolapse Cystocele, midline Essential hypertension 06/14/2020 Homozygous Factor V Leiden mutation ([facility]) 05/03/2020 Hypothyroidism IBS (irritable [...] - ICD9: 724.1, 338.29, (more content not included)...[facility]12-30-2024 History of Present illness Narrative* Mandeep [...] on chronic systolic CHF (congestive heart failure) ([facility]) 05/03/2020 Aspiration pneumonia ([facility]) 05/30/2020 Chest pain 05/03/2020 Chest pressure 01/23/2013 Chronic diastolic congestive heart failure ([facility]) 02/14/2021 Clostridium difficile diarrhea 09/28/2020 Complete uterovaginal prolapse Cystocele, midline Essential hypertension 06/14/2020 Homozygous Factor V Leiden mutation ([facility]) 05/03/2020 Hypothyroidism IBS (irritable [...] plan. See patient instructions. Mandeep Houser DO [address] [place] [address] documented in this encounterCincinnati [facility]12-10-2024 NoteHNO ID: [id number] Author: MANDEEP HOUSER DO Service: ? Author [...] on chronic systolic CHF (congestive heart failure) ([facility]) 05/03/2020 Aspiration pneumonia ([facility]) 05/30/2020 Chest pain 05/03/2020 [...] fullness right head, C3-5 (more content not included)...[facility]12-10-20[facility] History of Present illness Narrative* Mandeep [...] on chronic systolic CHF (congestive heart failure) ([facility]) 05/03/2020 Aspiration pneumonia ([facility]) 05/30/2020 Chest pain 05/03/2020 Chest pressure 01/23/2013 Chronic diastolic congestive heart failure ([facility]) 02/14/2021 Clostridium difficile diarrhea 09/28/2020 Complete uterovaginal prolapse Cystocele, midline Essential hypertension 06/14/2020 Homozygous Factor V Leiden mutation ([facility]) 05/03/2020 Hypothyroidism IBS (irritable [...] if no improvement. Follow up with Mandeep Housre DO. To ER if develops chest pain, shortness of breath,. Discussed risks, benefits, alternatives, and potential side effects of medications. Patient/Guardian expressed understanding and agreed with the plan. See patient instructions. Mandeep Houser DO [address] [place] [address] documented in this encounterCincinnati [facility]11-26-2024 Telephone encounter Note * Telephone [...] Penning[place] LPN April 08, 2024 9:26 AM [facility]11-26-2024 Miscellaneous Notes* Telephone Encounter - [...] 08, 2024 9:26 AM documented in this encounterCincinnati [facility]11-11-2024 Telephone encounter Note * Telephone Encounter - Phyllis Levin MA - 03/24/2024 9:51 AM EST Pt notified. Phyllis Levin MA [facility]11-11-2024 Miscellaneous Notes* Telephone Encounter - Phyllis Levin MA - 03/24/2024 9:51 AM EST Pt notified. Phyllis Levin MA * Telephone Encounter - Mandeep Housre DO - 03/21/2024 5:06 PM EST The [...] can send the Rx? documented in this encounterCincinnati [facility]11-08-2024 Telephone encounter Note * Telephone Encounter - Mandeep Houser DO - 03/21/2024 5:06 PM EST The following approved medication requests have been transmitted electronically. Requested Prescriptions Signed Prescriptions Disp Refills doxycycline (VIBRA-TABS) 100 mg tablet 20 tablet 0 Sig: Take 1 tablet by mouth two times a day for 10 days. Authorizing Provider: MANDEEP HOUSER DO [facility]11-08-2024 Telephone encounter Note* Telephone Encounter - Sanjeev Carpio RN - 03/21/2024 11:15 AM EST Patient reports she saw pcp on 03-18-24 for OMT. Reports pcp was going to call in AB to Amparowally Black, for her scratchy throat, sinus drainage, pt could take if the s/s continue. Reports Joanna Cleaning never recv'd the Rx. Asking if pcp can send the Rx? [facility]10-24-2024 Telephone encounter Note* Telephone Encounter - Sanjeev Carpio RN - 03/06/2024 2:23 PM EDT Pt returned call and given provider's message below with verbalized understanding. [facility]10-24-2024 Miscellaneous Notes* Telephone Encounter - [...] stable Mandeep Houser DO documented in this encounterCincinnati [facility]10-24-2024 Telephone encounter Note * Telephone Encounter - Meena Brown LPN - 03/06/2024 10:20 AM EDT Left message to return call. [facility]10-23-2024 Telephone encounter Note* Telephone Encounter - Mandeep Houser DO - 03/05/2024 10:33 PM EDT Please call patient and let her know that her recent thyroid labs are all stable Mandeep Houser DO [facility]10-01-2024 NoteHNO ID: [id number] Author: MANDEEP HOUSER DO Service: ? Author [...] ICD10: E03.9 (primary diagnos (more content not included)...[facility]10-01-20[facility] History of Present illness Narrative* Mandeep [...] on chronic systolic CHF (congestive heart failure) ([facility]) 05/03/2020 Aspiration pneumonia ([facility]) 05/30/2020 Chest pain 05/03/2020 Chest pressure 01/23/2013 Chronic diastolic congestive heart failure ([facility]) 02/14/2021 Clostridium difficile diarrhea 09/28/2020 Complete uterovaginal prolapse Cystocele, midline Essential hypertension 06/14/2020 Homozygous Factor V Leiden mutation ([facility]) 05/03/2020 Hypothyroidism IBS (irritable [...] plan. See patient instructions. Mandeep Houser DO [address] [place] [address] documented in this encounterCincinnati Children'[facility]09-26-2024 NoteHNO ID: [id number] Author: ANGEL CASTRO DO Service: ? Author Type: Physician Type: Progress Notes Filed: 02/07/2024 14:40 Note Text: [facility] [place] [facility] Department of Cardiovascular Medicine SECTION OF [facility] CARDIOLOGY/[facility] OUTPATIENT VISIT DATE February 07, 2024 OUTPATIENT VISIT TYPE ESTABLISHED PATIENT Name: Sandra Schmitz : 1945 Date: February 07, 2024 PRIMARY CARE PHYSICIAN: Mandeep Houser [address] [place] [address] REFERRING PHYSICIAN: No referring provider defined for this encounter. CHIEF COMPLAINT: Patient presents with: CARD Follow Up 3 Month: PMH: non-ischemic CM, HTN, Hypothyroidism, LBBB s/p ASSISTANT CENTER MANAGER-D IMPRESSION / PLAN: Severe nonischemic cardiomyopathy status post ASSISTANT CENTER MANAGER-D in July 2023. - [facility] 10/2021: mod LAD, D1 prox 40%, mild [...] breath or increasing abdominal girth. - s/p ASSISTANT CENTER MANAGER-D 07/16/23 at [facility] - Follows with advanced heart failure, - Follows with EPDr. [place] and continue follow-up in the device clinic Left bundle branch block - s/p ASSISTANT CENTER MANAGER-D 07/16/23 at [facility] - Follows with EP, Dr. Wellington Nonobstructive coronary artery disease - [facility] 10/2021: mod LAD, D1 prox 40%, mild [...] an ejection fraction of 23% status post ASSISTANT CENTER MANAGER-D in July 2023, hypertension and factor V [...] on chronic systolic CHF (congestive heart failure) ([facility]) 05/03/2020 Aspiration pneumonia ([facility]) 05/30/2020 Chest pain 05/03/2020 Chest pressure 01/23/2013 Chronic diastolic congestive heart failure ([facility]) 02/14/2021 Clostridium difficile diarrhea 09/28/2020 Complete uterovaginal prolapse Cystocele, midline Essential hypertension 06/14/2020 Homozygous Factor V Leiden mutation ([facility]) 05/03/2020 Hypothyroidism IBS (irritable [...] Relation Age of Onset (more content not included)...[facility]09-26-[facility] History of Present illness Narrative* Angel Castro, DO - 02/07/2024 2:02 PM EDT Images from the original note were not included. [facility] [place] [facility] Department of Cardiovascular Medicine SECTION OF [facility]ARDIOLOG[facility] OUTPATIENT VISIT DATE February 07, 2024 OUTPATIENT VISIT TYPE ESTABLISHED PATIENT Name: Sandra Schmitz : 1945 Date: February 07, 2024 PRIMARY CARE PHYSICIAN: Mandeep Houser [address] [place] [address] REFERRING PHYSICIAN: No referring provider defined for this encounter. CHIEF COMPLAINT: Patient presents with: CARD Follow Up 3 Month: PMH: non-ischemic CM, HTN, Hypothyroidism, LBBB s/p ASSISTANT CENTER MANAGER-D IMPRESSION / PLAN: Severe nonischemic cardiomyopathy status post ASSISTANT CENTER MANAGER-D in July 2023. - [facility] 10/2021: mod LAD, D1 prox 40%, mild [...] breath or increasing abdominal girth. - s/p ASSISTANT CENTER MANAGER-D 07/16/23 at [facility] - Follows with advanced heart failure, - Follows with Dr. Kitty DIAZ and continue follow-up in the device clinic Left bundle branch block - s/p ASSISTANT CENTER MANAGER-D 07/16/23 at [facility] - Follows with EPDr. [place] Nonobstructive coronary artery disease - [facility] 10/2021: mod LAD, D1 prox 40%, mild [...] an ejection fraction of 23% status post ASSISTANT CENTER MANAGER-D in July 2023, hypertension and factor V [...] on chronic systolic CHF (congestive heart failure) ([facility]) 05/03/2020 Aspiration pneumonia ([facility]) 05/30/2020 Chest pain 05/03/2020 Chest pressure 01/23/2013 Chronic diastolic congestive heart failure ([facility]) 02/14/2021 Clostridium difficile diarrhea 09/28/2020 Complete uterovaginal prolapse Cystocele, midline Essential hypertension 06/14/2020 Homozygous Factor V Leiden mutation ([facility]) 05/03/2020 Hypothyroidism IBS (irritable [...] Cardiovascular testing perfomed today. Angel Castro DO, [facility] Staff Lics[facility] Angel and Lizy Nuno Dept. of Cardiovascular Medicine Heart, Vascular and Thoracic [place], [facility] This document was generated using the assistance of voice recognition software. If there are any errors of spelling, grammar, syntax or meaning, please feel free to contact me directly at anytime. documented in this encounterCincinnati [facility]09-17-2024 NoteHNO ID: [id number] Author: MANDEEP HOUSER DO Service: ? Author [...] on chronic systolic CHF (congestive heart failure) ([facility]) 05/03/2020 Aspiration pneumonia ([facility]) 05/30/2020 Chest pain 05/03/2020 Chest pressure 01/23/2013 Chronic diastolic congestive heart failure ([facility]) 02/14/2021 Clostridium difficile diarrhea [...] E03.9 (primary diagnosis) - (more content not included)...[facility]09-17-20[facility] History of Present illness Narrative* Mandeep [...] on chronic systolic CHF (congestive heart failure) ([facility]) 05/03/2020 Aspiration pneumonia ([facility]) 05/30/2020 Chest pain 05/03/2020 Chest pressure 01/23/2013 Chronic diastolic congestive heart failure ([facility]) 02/14/2021 Clostridium difficile diarrhea 09/28/2020 Complete uterovaginal prolapse Cystocele, midline Essential hypertension 06/14/2020 Homozygous Factor V Leiden mutation ([facility]) 05/03/2020 Hypothyroidism IBS (irritable [...] plan. See patient instructions. Mandeep Houser DO [address] [place] [address] documented in this encounterCincinnati [facility]09-03-2024 NoteHNO ID: [id number] Author: PILI WELLS MD Service: ? Author Type: Physician Type: Progress Notes Filed: 03/07/2024 19:04 Note Text: [facility] [place] [facility] SECTION OF HEART FAILURE and CARDIAC TRANSPLANT MEDICINE [facility] OUTPATIENT VISIT DATE January 15, 2024 OUTPATIENT VISIT TYPE Established PRIMARY CARE PHYSICIAN: Mandeep Houser [address] [place] [address] CHIEF COMPLAINT: Follow Up HISTORY OF PRESENT ILLNESS: Sandra Schmitz is a 78 year old female with a medical history that includes non-ischemic CM, HTN, Hypothyroidism, LBBB s/p ASSISTANT CENTER MANAGER-D who is referred to me for heart failure management. Sandra Schmitz was initially diagnosed with non-ischemic CM ~ 4 yrs ago and was doing well on losartan and metoprolol. She had progressive sxs of dyspnea on exertion, therefore she was started on entresto and farxiga and her sxs persisted and she was admitted locally in [place] and then transferred to for ASSISTANT CENTER MANAGER consideration. Interval History: Sandra Schmitz was last [...] LVEF 40%, LVEdd 4.8cm. LBBB: chronic. S/p ASSISTANT CENTER MANAGER 07/2023 Non-obstructive CAD: stable, ischemic testing recently [...] on chronic systolic CHF (congestive heart failure) ([facility]) 05/30/2020: Aspiration pneumonia ([facility]) 05/03/2020: Chest pain 01/23/2013: Chest pressure 02/14/2021: Chronic diastolic congestive heart failure ([facility]) 09/28/2020: Clostridium difficile diarrhea No date: Complete uterovaginal prolapse No date: Cystocele, midline 06/14/2020: Essential hypertension 05/03/2020: Homozygous Factor V Leiden mutation ([facility]) No date: Hypothyroidism 01/23/2013: [...] of heart failure Beta (more content not included)...[facility]09-03-2024 History of Present illness Narrative* Pili Wells MD - 01/15/2024 1:13 PM EDT Images from the original note were not included. [facility] [place] [facility] SECTION OF HEART FAILURE and CARDIAC TRANSPLANT MEDICINE [facility] OUTPATIENT VISIT DATE January 15, 2024 OUTPATIENT VISIT TYPE Established PRIMARY CARE PHYSICIAN: Mandeep Houser [address] [place] [address] CHIEF COMPLAINT: Follow Up HISTORY OF PRESENT ILLNESS: Sandra Schmitz is a 78 year old female with a medical history that includes non-ischemic CM, HTN, Hypothyroidism, LBBB s/p ASSISTANT CENTER MANAGER-D who is referred to [facility] for heart failure management. Sandra Schmitz was initially diagnosed with non-ischemic CM ~ 4 yrs ago and was doing well on losartan and metoprolol. She had progressive sxs of dyspnea on exertion, therefore she was started on entresto and farxiga and her sxs persisted and she was admitted locally in [place] and then transferredto for ASSISTANT CENTER MANAGER consideration. Interval History: Sandra Schmitz was last [...] LVEF 40%, LVEdd 4.8cm. LBBB: chronic. S/p ASSISTANT CENTER MANAGER 07/2023 Non-obstructive CAD: stable, ischemic testing recently [...] on chronic systolic CHF (congestive heart failure) ([facility]) 05/30/2020: Aspiration pneumonia ([facility]) 05/03/2020: Chest pain 01/23/2013: Chest pressure 02/14/2021: Chronic diastolic congestive heart failure ([facility]) 09/28/2020: Clostridium difficile diarrhea No date: Complete uterovaginal prolapse No date: Cystocele, midline 06/14/2020: Essential hypertension 05/03/2020: Homozygous Factor V Leiden mutation ([facility]) No date: Hypothyroidism 01/23/2013: [...] to tingling/BADILLO - Vasodilators: no - Device: ASSISTANT CENTER MANAGER-D - Cardiomems: no - Other: lasix 20mg daily IMPRESSION and PLAN/Recommendation In summary, Sandra Schmitz is a 78 year old being managed today for the following issues: 1. Non-ischemic Cardiomyopathy/chronic systolic heart failure: NYHA functional class IIb, Stage C heart failure, Clinical Class A - warm and euvolemic. Intolerant to many GDMT as above. Currently will continue. She reports symptomatic improvement post ASSISTANT CENTER MANAGER. Echo 11/2023 reviewed - LVEF remains low, LV not as dilated, MR improved as well GDMT: as above Did cardiac rehab. Labs 11/2022 reviwed: K 4.0, Cr 0.96 Following with [facility] as well. 2. Non-obsctructive CAD: on aspirin and toprol as above On aspirin 81mg daily, not on stating - reports intolerance. Following with Dr. Castro. 3. LBBB s/p ASSISTANT CENTER MANAGER-D Thank you for allowing me to participate [...] Wells MD Advanced Heart Failure and Trans[facility] [place] [address] Appointment: [phone] documented in this encounterCincinnati [facility]09-03-2024 Instructions* Patient Instructions* Pili Wells [...] and weight daily. Please notify us via Sr[employer]Pago if your Systolic BP (top number) < [...] heart kidney injury risk Please send a [employer] message or call with any questions or concerns: Outpatient Number: [phone] Thank you, Pili Wells MD Advanced Heart Failure and Transplant [facility] [place] [id number] documented in this encounterCincinnati [facility]08-29-2024 NoteHNO ID: [id number] Author: MANDEEP HOUSER, DO Service: ? Author [...] on chronic systolic CHF (congestive heart failure) ([facility]) 05/30/2020: Aspiration pneumonia ([facility]) 05/03/2020: Chest pain 01/23/2013: Chest pressure 02/14/2021: Chronic diastolic congestive heart failure ([facility]) 09/28/2020: Clostridium difficile diarrhea No date: Complete uterovaginal prolapse No date: Cystocele, midline 06/14/2020: Essential hypertension 05/03/2020: Homozygous Factor V Leiden mutation ([facility]) No date: Hypothyroidism 01/23/2013: [...] No edema. No sp (more content not included)...[facility]08-29-[facility] History of Present illness Narrative* Mandeep [...] (congestive heart failure) ([facility]) 05/30/2020: Aspiration pneumonia ([facility]) 05/03/2020: Chest pain 01/23/2013: [...] plan. See patient instructions. Mandeep Houser DO [address] [place] [address] documented in this encounterCincinnati [facility]07-31-2024 NoteHNO ID: [id number] Author: MANDEEP HOUSER DO Service: ? Author [...] on chronic systolic CHF (congestive heart failure) ([facility]) 05/30/2020: Aspiration pneumonia ([facility]) 05/03/2020: Chest pain 01/23/2013: Chest pressure 02/14/2021: Chronic diastolic congestive heart failure ([facility]) 09/28/2020: Clostridium difficile diarrhea No date: Complete uterovaginal prolapse No date: Cystocele, midline 06/14/2020: Essential hypertension 05/03/2020: Homozygous Factor V Leiden mutation ([facility]) No date: Hypothyroidism 01/23/2013: [...] Comment: Laparoscopic cholecystectomy with intraoperative cholangiograms. Dr. [place] Current Outpatient Medications Medication Sig aluminum-magnesium hydroxide-simethicone [...] bilateral thoracic back pain (more content not included)...[facility]07-31-[facility] History of Present illness Narrative* Mandeep [...] on chronic systolic CHF (congestive heart failure) ([facility]) 05/30/2020: Aspiration pneumonia ([facility]) 05/03/2020: Chest pain 01/23/2013: Chest pressure 02/14/2021: Chronic diastolic congestive heart failure ([facility]) 09/28/2020: Clostridium difficile diarrhea No date: Complete uterovaginal prolapse No date: Cystocele, midline 06/14/2020: Essential hypertension 05/03/2020: Homozygous Factor V Leiden mutation ([facility]) No date: Hypothyroidism 01/23/2013: [...] plan. See patient instructions. Mandeep Houser DO [address] [place] [address] documented in this encounterCincinnati [facility]07-29-2024 Telephone encounter Note * Telephone [...] edema. No further questions. Pt confirmed understanding. [facility]07-29-2024 Miscellaneous Notes* Telephone Encounter - [...] 12/10/2023 11:31 AM EDT Pili Wells MD [facility], Please call patient with results. She doesn't have mychart for me to send message. Thanks, * Telephone Encounter - Pili Wells MD - 12/06/2023 6:49 PM EDT Echo results reviewed. LVEF remains stable, mitral regurgitation is improved. At this time we will continue with medications. No changes documented in this encounterCincinnati [facility]07-29-2024 Telephone encounter Note * Telephone Encounter - Helen Ramachandran RN - 12/10/2023 11:31 AM EDT Pili Wells MD [facility], Please call patient with results. She doesn't have mychart for me to send message. Thanks, [facility]07-25-2024 Telephone encounter Note* Telephone Encounter - Pili Wells MD - 12/06/2023 6:49 PM EDT Echo results reviewed. LVEF remains stable, mitral regurgitation is improved. At this time we will continue with medications. No changes [facility]07-17-2024 Telephone encounter Note* Telephone Encounter - Concetta Dahl - 11/28/2023 11:06 AM EDT Transitional Care Management (TCM) [facility] Monitoring Program Provider Action / FYI: N/A SUMMARY: Outreach type: FOLLOW-UP OUTREACH Discharge Network Status: In-Network Discharge Source of Patient: [facility] TCM Discharge Report Patient discharged from [place] on 11/18/23. Admitted for Pre-syncope. Contact made with patient: Yes, for Follow-up Outreach [facility], my name is Concettajose a Edmondslela. I am calling from the [facility] on behalf of your PrimaryCare [...] Appointment Center phone number to speak witha life care planner who can assist you with that appointment. [...] Concetta Dahl November 28, 2023 11:09 AM [facility]07-17-2024 Miscellaneous Notes* Telephone Encounter - Concetta Dahl - 11/28/2023 11:06 AM EDT Transitional Care Management (TCM) [facility] Monitoring Program Provider Action / FYI: N/A SUMMARY: Outreach type: FOLLOW-UP OUTREACH Discharge Network Status: [facility] Patient [facility] from [place] on 11/18/23. Admitted for Pre-syncope. Contact made with patient: Yes, for Follow-up Outreach Hi, my name is Concetta Nabila. I am calling from the [facility] on behalf of your PrimaryCare [...] Appointment Center phone number to speak witha life care planner who can assist you with that appointment. [...] 28, 2023 11:09 AM documented in this encounterCinc[facility]07-12-2024 Telephone encounter Note * Telephone Encounter - Rojas Prakash RN - 11/23/2023 1:28 PM EDT Transitional Care Management (TCM) [facility] Monitoring Program Provider Action / FYI: na SUMMARY: Outreach type: INITIAL OUTREACH Discharge Network Status: In-Network Discharge Source of Patient: [facility] TCM Discharge Report Patient discharged from [place] on 11.18.23. Admitted for Pre-syncope . Contact made with patient: No - next outreach attempt will be on next business day. Rojas Prakash RN November 23, 2023 1:29 PM [facility]07-12-2024 Miscellaneous Notes* Telephone Encounter - Rojas Prakash RN - 11/23/2023 1:28 PM EDT Transitional Care Management (TCM) [facility] Monitoring Program Provider Action / FYI: na SUMMARY: Outreach type: INITIAL OUTREACH Discharge Network Status: In-Network Discharge Source of Patient: [facility] TCM Discharge Report Patient discharged from [place] on 11.18.23. Admitted for Pre-syncope . Contact made with patient: No - next outreach attempt will be on next business day. Rojas Prakash RN November 23, 2023 1:29 PM documented in this encounterCinc[facility]07-[facility] Telephone encounter Note * Telephone [...] No results found for this basename: BNP [facility]07-09-2024 Miscellaneous Notes* Telephone Encounter - [...] for this basename: BNP documented in this encounterCincinnati [facility]07-06-2024 NoteHNO ID: [id number] Author: REMINGTON CAI MD Service: Hospital Medicine Author Type: Physician Type: Progress Notes Filed: 11/18/2023 08:20 Note Text: DEPARTMENT OF HOSPITAL MEDICINE PROGRESS NOTE SERVICE DATE: 11/17/2023 SERVICE TIME: 3:13 PM Hospital Medicine/Primary Attending: Remington Cai MD NIGHT AND WEEKEND COVERAGE: [facility] [employer]: Nights: [phone], please page [facility] Night coverage pager [phone]. Probable discharge: 11/17 Disposition: Home Consultants: PROCEDURES: [...] (1st dx 2019, 07-12-23: EF 26%), s/p ASSISTANT CENTER MANAGER-D (July 20, 2023, [employer]tr[employer]), non occlusive CAD ([facility]: ), IBS, Factor V Leiden Syndrome, HTN, HLD, CAD, Hypothyroidism almost blacking out. Patient states that earlier today she was having some abdominal spasms and went to the bathroom. Had a small BM then proceeded to very lightheaded and states her visions kind of went dark but she did not lose full consci (more content not included)...[facility] HospitalSrdarhdz62-22-0822 NoteHNO ID: [id number] Author: REMINGTON CAI MD Service: Hospital Medicine Author Type: Physician Type: Progress Notes Filed: 11/17/2023 15:12 Note Text: [facility] MEDICINE PROGRESS NOTE SERVICE DATE: 11/16/2023 SERVICE TIME: 2:31 PM Hospital Medicine/Primary Attending: Remington Cai MD NIGHT AND WEEKEND COVERAGE: [facility] [employer]: Nights: [phone], please page [facility] Night coverage pager [phone]. Probable discharge: 11/16 Disposition: Home Consultants: PROCEDURES: [...] ( dx 2019, 07-12-23: EF 26%), s/p ASSISTANT CENTER MANAGER-D (July 20, 2023, [employer]tr[employer]), non occlusive CAD ([facility]: ), IBS, Factor V Leiden Syndrome, HTN, HLD, CAD, Hypothyroidism almost blacking out. Patient states that earlier today she was having some abdominal spasms and went (more content not included)...[facility] [id number] NoteHNO ID: [id number] Author: SADIE TALBERT RN Service: Care Management [...] Determined Advance Directives Current Advance Directive: None Fuel [employer] Clerk Attempted to Assist with AD Completion: Yes [...] Be able to go home, General wellness [place] of Choice Explained: [place] of Choice Given: No Reason Not Given: [...] 16, 2023 TIME: 9:42 AM CONTACT #: [phone] [id number] NoteHNO ID: [id number] Author: JP HENNING CT Service: Cardiovascular Testing Author Type: Clinical Family Readiness Support Assistant Type: Progress Notes Filed: 11/16/2023 07:55 Note Text: Summary: Pacemaker Check Received requisition for pacemaker check. Went to patient's room to check device. Patient stated that the device was checked in the ED last night. I checked the patient's hard chart and report from [employer] is in the chart. No need to repeat a device check.[facility] [id number] Telephone encounter Note * Telephone Encounter - Bria Wallace MA - 11/08/2023 8:20 AM EDT Pt notified and verbalized understanding Bria Wallace MA [facility]06-27-2024 Miscellaneous Notes* Telephone Encounter - [...] Lymph 1.00 - 4.00 k/uL 4.05 (H) Holmes% % 9.1 Abs Holmes <0.87 k/uL 0.99 (H) Eosin% % 3.1 [...] chronic microvascular ischemic changes. documented in this encounterCincinnati [facility]06-26-2024 History of Present illness Narrative* [...] on chronic systolic CHF (congestive heart failure) ([facility]) 05/03/2020 Aspiration pneumonia ([facility]) 05/30/2020 Chest pain 05/03/2020 Chest pressure 01/23/2013 Chronic diastolic congestive heart failure ([facility]) 02/14/2021 Clostridium difficile diarrhea 09/28/2020 Complete uterovaginal prolapse Cystocele, midline Essential hypertension 06/14/2020 Homozygous Factor V Leiden mutation ([facility]) 05/03/2020 Hypothyroidism IBS (irritable [...] M54.50 Xrays as ordered Start on prednisone Busby for severe pain, If xrays are without [...] plan. See patient instructions. Mandeep Houser DO [address] [place] [address] documented in this encounterCincinnati [facility]06-26-2024 Telephone encounter Note * Telephone [...] before breakfast. Authorizing Provider: HOUSERMANDEEP HAUSER DO [facility]06-26-2024 Telephone encounter Note* Telephone Encounter - Petrona Lechuga RN - 11/07/2023 1:03 PM EDT Spoke with patient. Given message from provider's office. Patient verbalizes understanding. Scheduled. Petrona Lechuga RN [facility]06-26-2024 Miscellaneous Notes* Telephone Encounter - [...] on her. Please advise documented in this encounterCincinnati [facility]'S [facility] Center06-26-2024 Telephone encounter Note * Telephone Encounter - Mandeep Houser DO - 11/07/2023 12:36 PM EDT Ok for her to come in at 6 pm tonight for an appointment Mandeep Houser DO [facility]06-26-2024 Telephone encounter Note* Telephone Encounter - Mane Pennington LPN - 11/07/2023 10:36 AM EDT Patient calling asking for an OMT appt having back and hip problems. Patient said her hip went out on her. Please advise [facility]06-25-2024 Telephone encounter Note* Telephone Encounter [...] Lymph 1.00 - 4.00 k/uL 4.05 (H) Holmes% % 9.1 Abs Holmes <0.87 k/uL 0.99 (H) Eosin% % 3.1 [...] 2.1 (L) Legend: (H) High (L) Low [facility]06-25-2024 Telephone encounter Note* Telephone Encounter - Merly Gomez OCCA - 11/06/2023 10:14 AM EDT TC no answer. Left VM to return call. BETTY Wells [facility]06-25-2024 Telephone encounter Note* Telephone Encounter [...] consistent with chronic microvascular ischemic changes. T [facility]06-20-2024 History of Present illness Narrative* [...] PATIENT PRESENTS WITH AN IMPLANTABLE OR ATTACHED FOOD TECHNOLOGIST: No RADIOLOGY DEPARTMENT: CT; Exam(s) Completed: Brain PERIPHERAL IV DATA: Not applicable SIGNED BY: RT Reyes(Marlee) November 01, 2023 3:05 PM documented in this encounterCincinnati [facility]06-20-2024 NoteHNO ID: [id number] Author: KIRSTIN STEVENS RT(Marlee) Service: Radiology Author [...] PATIENT PRESENTS WITH AN IMPLANTABLE OR ATTACHED FOOD TECHNOLOGIST: No RADIOLOGY DEPARTMENT: CT; Exam(s) Completed: Brain PERIPHERAL IV DATA: Not applicable SIGNED BY: RT Reyes(R) November 01, 2023 3:05 [facility]06-20-2024 History of Present illness Narrative* Mercedes Vera APRN.GEOPHYSICS SCIENTIST - 11/01/2023 9:30 AM EDT Images from the original note were not included. [facility] [place] [facility] Department of Cardiovascular Medicine SECTION OF CARDIAC PACING and ELECTROPHYSIOLOGY OUTPATIENT VISIT DATE November 01, 2023 OUTPATIENT VISIT TYPE ESTABLISHED PRIMARY CARE PHYSICIAN: Mandeep Houser [address] [place] [address] CHIEF COMPLAINT: follow up s/p ASSISTANT CENTER MANAGER-D HISTORY OF PRESENT ILLNESS: Ms. Schmitz is a 78 year old female who presents today for followed by Dr. Wells, Dr. Wellington, Dr. Greenfield ([facility]), Dr. Oneill, non ischemic cardiomyopathy, chronic HFrEF (2019, 07-12-23: EF 26%), s/p ASSISTANT CENTER MANAGER-D (July 20, 2023, [employer]tr[employer]), non occlusive CAD ([facility]: ), Other PMH of hypertension, hyperlipidemia, family [...] on chronic systolic CHF (congestive heart failure) ([facility]) 05/03/2020 Aspiration pneumonia ([facility]) 05/30/2020 Chest pain 05/03/2020 [...] - 4.00 k/uL 3.09 3.14 4.05 (H) Holmes% % 8.6 7.3 9.1 Abs Holmes <0.87 k/uL 1.15 (H) 0.72 0.99 (H) [...] Programmed parameters reviewed * Presenting rhythm reviewed: /CROP QUANTITATIVE GENETICIST * Heart Rate Histograms reviewed * No [...] pacing <0.1%. total V pacing 97.9%. Adaptive ASSISTANT CENTER MANAGER shows BiV pacing 6.8%, LV only pacing [...] chronic HFrEF (2019, 07-12-23: EF 26%), s/p ASSISTANT CENTER MANAGER-D (July 20, 2023, [employer]tr[employer]), non occlusive CAD ([facility]: ). -normotensive, ventricular pacing, no evidence per [...] with more than 50% of the total poiu-xz-fmru time of the visit in counseling / coordination of care. CONTACT INFORMATION: Mercedes Vera APRN.TIM, 11/01/23 [facility] [address] [place] [address] documented in this encounterCinc[facility]06-[facility]-20[facility] History of Present illness Narrative* [...] 3 months had a pacemaker placed by [facility]- has upcoming follow up for check up. [...] (congestive heart failure) (HCC) 05/03/2020 Aspiration pneumonia ([facility]) 05/30/2020 Chest pain 05/03/2020 Chest pressure 01/23/2013 Chronic diastolic congestive heart failure ([facility]) 02/14/2021 Clostridium difficile diarrhea 09/28/2020 Complete uterovaginal prolapse Cystocele, midline Essential hypertension 06/14/2020 Homozygous Factor V Leiden mutation ([facility]) 05/03/2020 Hypothyroidism IBS (irritable [...] with the plan. Mandeep Houser DO [address] [place] [address] documented in this encounterCinc[facility]06-[facility]-2024 Telephone encounter Note * Telephone Encounter - Radha Buchanan - 10/30/2023 12:00 PM EDT Patient will call back to confirm or change appointment. Will check with daughter and sister for transportation help. Prefers [place] location with Mercedes. [facility]06-18-2024 Miscellaneous Notes* Telephone Encounter - Radha Buchanan - 10/30/2023 12:00 PM EDT Patient will call back to confirm or change appointment. Will check with daughter and sister for transportation help. Prefers [place] location with Mercedes. * Telephone Encounter - Radha Buchanan - 10/30/2023 11:33 AM EDT Images from the original note were not included. Dilcia Pearson MD [place], Amal; Shelly Briones MA Can we bring her in for visit with Mercedes (here) or Morenita Chavis at [facility] - earliest available(not urgent) Thx C documented in this encounterCinc[facility]06-18-2024 Telephone encounter Note * Telephone Encounter - Radha Buchanan - 10/30/2023 11:33 AM EDT Images from the original note were not included. Dilcia Pearson MD Othman, Amal; Shelly Briones MA Can we bring her in for visit with Mercedes (here) or Morenita or [place] at [facility] - earliest available(not urgent) Thx C [facility]06-05-2024 Telephone encounter Note* Telephone Encounter - Anni Herrera LPN - 10/17/2023 11:20 AM EDT Spoke with pt and information listed below given. Pt verbalizes understanding. Anni Herrera LPN [facility]06-05-2024 Miscellaneous Notes* Telephone Encounter - [...] stable. Take careRupali APRN.CNP documented in this encounterCincinnati [facility]06-05-2024 Telephone encounter Note * Telephone Encounter - Kelsey Costa LPN - 10/17/2023 10:19 AM EDT Message left to return call. [facility] Work Phone: 1(617) 733-114206-05-2024 Telephone encounter Note* Telephone Encounter - Rupali Nascimento APRN.CNP - 10/17/2023 9:38 AM EDT Please call patient and let her know that lab work looks good. Uric acid level was elevated as we suspected d/t gout flare up. Continue with regimen as discussed. Kidney function is normal and stable. Take care, Rupali Nascimento APRN.GEOPHYSICS SCIENTIST [facility]06-03-2024 Telephone encounter Note* Telephone Encounter - Rupali Nascimento APRN.CNP - 10/15/2023 12:18 PM EDT Noted. Just saw patient in office and agree with below. Trial of prednisone burst x 4 days and continue with compression stockings was the recommendation. Thank you, Rupali Nascimento APRN.GEOPHYSICS SCIENTIST [facility]06-03-2024 Miscellaneous Notes* Telephone Encounter - [...] pain, rash, fever, numbness Protocols used: Toe Ulqt-NPCYA-JL documented in this encounterCincinnati [facility]06-03-2024 Instructions* Patient Instructions* Rupali Nascimento APRN.GEOPHYSICS SCIENTIST - 10/15/2023 11:47 AM EDT .az documented in this encounterCinc[facility]06-[facility]-2024 History of Present illness Narrative* [...] on chronic systolic CHF (congestive heart failure) ([facility]) 05/03/2020 Aspiration pneumonia ([facility]) 05/30/2020 Chest pain 05/03/2020 Chest pressure 01/23/2013 Chronic diastolic congestive heart failure ([facility]) 02/14/2021 Clostridium difficile diarrhea 09/28/2020 Complete uterovaginal prolapse Cystocele, midline Essential hypertension 06/14/2020 Homozygous Factor V Leiden mutation ([facility]) 05/03/2020 Hypothyroidism IBS (irritable [...] Patient agreeable to treatment plan. Rupali Correa APRN.GEOPHYSICS SCIENTIST [address] [place] [address] documented in this encounterCinc[facility]06-03-2024 Telephone encounter Note * Telephone Encounter - Jyoti Josue RN - 10/15/2023 11:09 AM EDT Received TE back today and called patient with update. Patient scheduled with PCP office previously. Patient wanting to have PCP check to make sure she doesn't have gout. Dr. Del Cid is out this week. Jyoti Josue RN [facility]05-30-2024 Telephone encounter Note* Telephone Encounter [...] pain, rash, fever, numbness Protocols used: Toe Olxp-MDTRN-CJ [facility]05-30-2024 Telephone encounter Note* Telephone Encounter [...] 10/31/2023 Please advise. Thank you. Sridevi Leyva. [facility]05-30-2024 Miscellaneous Notes* Telephone Encounter - [...] Thank you. Sridevi Leyva. documented in this encounterCinc[facility]05-21-2024 History of Present illness Narrative* Pili Wells MD - 10/02/2023 4:00 PM EDT [facility] Department of Cardiovascular Medicine TELEPHONE VISIT (audio [...] visit. Either the patient or their legal civil rights representative has been informed of the risks and benefits of -- and alternatives to -- treatment through a remote evaluation andconsents to proceed with the evaluation remotely. Sandra Schmitz has consented to this telephone encounter. Persons Present: patient Chief Complaint/Reason: Follow up HPI: Sandra Schmitz is a 78 year old female with a medical history that includes non-ischemic CM, HTN, Hypothyroidism, LBBB s/p ASSISTANT CENTER MANAGER-D who is referred to me for heart failure management. Sandra Schmitz was initially diagnosed with non-ischemic CM ~ 4 yrs ago and was doing well on losartan and metoprolol. She had progressive sxs of dyspnea on exertion, therefore she was started on entresto and farxiga and her sxs persisted and she was admitted locally in [place] and then transferredto for ASSISTANT CENTER MANAGER consideration. Interval History: Sandra Schmitz was last [...] LVEF 40%, LVEdd 4.8cm. LBBB: chronic. S/p ASSISTANT CENTER MANAGER 07/2023 Non-obstructive CAD: stable, ischemic testing recently with no ischemia or infarction. 06/2023 Nuc SPECT: no ischemia or infarction. 10/2021 Cath: mod LAD, D1 prox 40%, mild RCA disease dominant, EF 35%. Hx of HTN: BP have been stable Data Reviewed: Device interrogation (09/19/23) OTHER DIAGNOSTICS: RA pacing <0.1%. total V pacing 97.9%. Adaptive ASSISTANT CENTER MANAGER shows BiV pacing 6.8%, LV only pacing 93.2%. Assessment: GDMT: - BB: toprol XL 12.5mg daily - ACEI/ARB/ARNI: losartan 25mg daily - MRA: no - SGLT2: unable to tolerate it - Vasodilators: no - Device: ASSISTANT CENTER MANAGER - Cardiomems: no - Other: lasix 20mg [...] reviewed Cr: 0.84, K 3.9. Echocardiogram in [place] next month and following with Dr. Castro. 2. HTN: BP well controlled currently. 3. LBBB s/p ASSISTANT CENTER MANAGER: Will send message to Dr. Wellington given [...] Wells MD Advanced Heart Failure [facility] Trans[facility] [place] [id number] Appointment: [phone] documented in this encounterCincinnati [facility]05-20-2024 Instructions* Patient Instructions* Alejandrina Harvey APRN.GEOPHYSICS SCIENTIST - 10/01/2023 12:41 PM EDT Take the Mucinex twice daily for 14 days. Start the Zpak today. Use the tessalon perles for your cough if they work. Get in at least 60-80oz of water daily. Ok for Tylenol/ibuprofen if necessary. Let me know in the next week if you're not improving. documented in this encounterCinc[facility]05-20-2024 History of Present illness Narrative* [...] on chronic systolic CHF (congestive heart failure) ([facility]) 05/03/2020 Aspiration pneumonia ([facility]) 05/30/2020 Chest pain 05/03/2020 Chest pressure 01/23/2013 Chronic diastolic congestive heart failure ([facility]) 02/14/2021 Clostridium difficile diarrhea 09/28/2020 Complete uterovaginal prolapse Cystocele, midline Essential hypertension 06/14/2020 Homozygous Factor V Leiden mutation ([facility]) 05/03/2020 Hypothyroidism IBS (irritable [...] HR Alejandrina Harvey APRN.TIM documented in this encounterCinc[facility]05-20-2024 Telephone encounter Note * Telephone Encounter - Margarita Villalba LPN - 10/01/2023 10:17 AM EDT Patient notified of results and provider's instructions. Patient verbalizes understanding. Margarita Villalba LPN [facility] Work Phone: [phone]) 445-939805-20-2024 Miscellaneous Notes* Telephone Encounter - Margarita Villalba [...] shoes Oliverio Mata DPM documented in this encounterCincinnati [facility]05-19-2024 Telephone encounter Note * Telephone Encounter - Oliverio Mata - 09/30/2023 8:03 AM EDT Please call patient to inform her that xrays do not show any stress fracture. Continue with good supportive shoes and/or insert in shoes Oliverio Mata DPM [facility] Work Phone: 1(818) 461-134505-17-2024 NoteMULTI CHAMBER ICD REMOTE EVALUATION: PRESENTING EGM: /LVP BATTERY STATUS: Estimated time remaining to YOLI is 11.7 years COUNTERS SINCE: 08/07/23 ATRIAL ARRHYTHMIAS: There have been no atrial detections. VENTRICULAR ARRHYTHMIAS: There have been no ventricular detections. LEAD MEASUREMENTS: Sensing is appropriate. Review of the lead impedance trends are normal. OTHER DIAGNOSTICS: RA pacing <0.1%. total V pacing 97.9%. Adaptive ASSISTANT CENTER MANAGER shows BiV pacing 6.8%, LV only pacing 93.2%. FOLLOW UP: Continue 3 month remote transmissions and yearly in-clinic interrogations. Amy Louis RN NOTE TO PROVIDERS: CARD Flowsheets contain detailed device programming and testing data. Paceart/Interrogation PDF can be found under CARDIAC DATA AND REPORT, Scanned Documents section.[id number] Telephone encounter Note* Telephone Encounter - Thuy [...] Dr. Wells 10/01 carlito. Thuy Aguirre APRN.CNP [facility]05-14-2024 Miscellaneous Notes* Telephone Encounter - [...] Thuy Aguirre APRN.CNP documented in this encounterCleveland [id number] History of Present illness Narrative* Nuria Whitten [...] PATIENT PRESENTS WITH AN IMPLANTABLE OR ATTACHED FOOD TECHNOLOGIST: No RADIOLOGY DEPARTMENT: General X-ray: Exam(s) Completed: Lower Extremity X- Ray(s): Foot, Left PERIPHERAL IV DATA: Not applicable SIGNED BY: RT Daily(R) September 24, 2023 11:01 AM documented in this encounterCincinnati [facility]05-13-2024 History of Present illness Narrative* [...] on chronic systolic CHF (congestive heart failure) ([facility]) 05/03/2020 Aspiration pneumonia ([facility]) 05/30/2020 Chest pain 05/03/2020 Chest pressure 01/23/2013 Chronic diastolic congestive heart failure ([facility]) 02/14/2021 Clostridium difficile diarrhea 09/28/2020 Complete uterovaginal prolapse Cystocele, midline Essential hypertension 06/14/2020 Homozygous Factor V Leiden mutation ([facility]) 05/03/2020 Hypothyroidism IBS (irritable [...] cardiology Oliverio Mata DPM Podiatry [address] [facility] [address] Dept: [phone] Dept * Sincere Berger RN - 09/24/2023 [...] is in cardiac rehab where she walks [facility], started that on 08/31/23 three times a week. documented in this encounterCincinnati [facility]05-08-2024 Telephone encounter Note * Telephone Encounter - Ira Welch RN - 09/19/2023 5:43 PM EDT Spoke with patient and talked her through sending remote transmission. Pt states that she feels okay other than mild discomfort, denies any shortness of breath, internal chest pain or feeling unwell. Ira Welch RN [facility]05-08-2024 Miscellaneous Notes* Telephone Encounter - [...] and she asks if that is the [place] tribe thing that sits on the table and [...] was connected that she should contact her regulatory affairs manager. Please review. JOHN Rowe documented in this encounterCincinnati [facility]'S [facility]05-08-2024 Telephone encounter Note * Telephone [...] and she asks if that is the [place] tribe thing that sits on the table and turns green. She states she has never had to send one before and isn't sure how to do it so someone will need to walk her through it. I told her to watch for our call. [facility]05-07-2024 Telephone encounter Note* Telephone Encounter - Sanjeev Carpio RN - 09/18/2023 8:22 AM EDT Phoned patient and given provider's message below with verbalized understanding. Patient agreeable and will call back to schedule appt. [facility]05-07-2024 Miscellaneous Notes* Telephone Encounter - [...] her to schedule with for further assessment. Alejandrnia Harvey APRN.GEOPHYSICS SCIENTIST * Telephone Encounter - Sanjeev Carpio RN - 09/17/2023 1:11 PM EDT Patient asking provider to review and advise on xray left foot results, and asking if she should schedule appt with Dr. Mata, as the left foot is sill swollen some today. documented in this encounterCincinnati [facility]05-07-2024 Telephone encounter Note * Telephone Encounter - Alejandrina Harvey APRN.CNP - 09/18/2023 6:57 AM EDT Her foot xray looks stable, nothing acutely concerning. Yes, please assist her to schedule with for further assessment. Alejandrina Harvey APRN.TIM [facility]05-06-2024 Telephone encounter Note* Telephone Encounter [...] out to EP doctor Dr. Wellington too. [facility]05-06-2024 Miscellaneous Notes* Telephone Encounter - [...] doctor Dr. Wellington too. documented in this encounterCincinnati [facility] Telephone encounter Note * Telephone Encounter - Concetta Prado PSS - 09/17/2023 1:38 PM EDT Patient stated that while she bent over to weed she felt her pacemaker move forward. Pt had a cardio therapy appt today 09/17/23 and they stated everything was connected that she should contact her regulatory affairs manager. Please review. JOHN Rowe [facility]05-06-2024 Telephone encounter Note* Telephone Encounter - Sanjeev Carpio RN - 09/17/2023 1:11 PM EDT Patient asking provider to review and advise on xray left foot results, and asking if she should schedule appt with Dr. Mata, as the left foot is sill swollen some today. [facility]05-[facility] History of Present illness Narrative* [...] PATIENT PRESENTS WITH AN IMPLANTABLE OR ATTACHED FOOD TECHNOLOGIST: No RADIOLOGY DEPARTMENT: General X-ray: Exam(s) Completed: Lower Extremity X- Ray(s): Foot, Left PERIPHERAL IV DATA: Not applicable SIGNED BY: RT Daily(R) September 13, 2023 11:37 AM documented in this encounterCincinnati [facility]05-02-2024 History of Present illness Narrative* [...] OMEPRAZOLE 20 MG CAPSULE,DELAYED RELEASE Alejandrina Harvey APRN.GEOPHYSICS SCIENTIST Currently: Top of left foot just near the base of her first 2 toes is painful and swollen. Doing therapy. Has hx of pin in her big toe and fusion to second toe. Thinks she may have stepped wrong-started about 1.5 weeks ago. Hurts to walk and now hurting into the ball of her foot. M-W-F at 10:00 therapy/cardiac rehab at [facility]. Past medical history, appointments, medications, allergies reviewed. Previous Medical History PAST MEDICAL HISTORY Diagnosis Date Acute acalculous cholecystitis 05/30/2020 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 09/22/2020 Acute on chronic systolic CHF (congestive heart failure) ([facility]) 05/03/2020 Aspiration pneumonia ([facility]) 05/30/2020 Chest pain 05/03/2020 Chest pressure 01/23/2013 Chronic diastolic congestive heart failure ([facility]) 02/14/2021 Clostridium difficile diarrhea 09/28/2020 Complete uterovaginal prolapse Cystocele, midline Essential hypertension 06/14/2020 Homozygous Factor V Leiden mutation ([facility]) 05/03/2020 Hypothyroidism IBS (irritable [...] LEFT Alejandrina Harvey APRN.TIM documented in this encounterCincinnati Children'S [facility]04-24-2024 Instructions* Patient Instructions* Thuy Aguirre [...] Jardiance. 3. Fasting blood work at any [facility] lab in 2 weeks to [...] appointment with Dr. Oneill documented in this encounterCincinnati Children'S [facility]04-24-2024 History of Present illness Narrative* Thuy Aguirre APRN.CNP - 09/05/2023 11:00 AM EDT Images from the original note were not included. [facility] Department of Cardiovascular Medicine SECTION OF CLINICAL CARDIOLOGY OUTPATIENT VISIT DATE September 05, 2023 OUTPATIENT VISIT TYPE ESTABLISHED PRIMARY CARE PHYSICIAN: Mandeep Houser [address] [place] [address] CHIEF COMPLAINT: Follow up HISTORY OF PRESENT ILLNESS: Ms. Schmitz is a 78 year old female with history of chronic HFrEF, NICM, LBBB, s/p ASSISTANT CENTER MANAGER-D (07/2023), nonobstructive CAD, valvular insufficiency, HTN, hypothyroidism, and factor V Leiden mutation who presents today for a cardiovascular medicine follow-up visit. She has historically received her general cardiology care in [place] with Dr. Oneill however after recent admission to [facility] 06/2023 she is looking to establish her [...] She is participating in cardiac rehab in [facility]. She isweighing herself daily and weights [...] on chronic systolic CHF (congestive heart failure) ([facility]) 05/03/2020 Aspiration pneumonia ([facility]) 05/30/2020 Chest pain 05/03/2020 Chest pressure 01/23/2013 Chronic diastolic congestive heart failure ([facility]) 02/14/2021 Clostridium difficile diarrhea 09/28/2020 Complete uterovaginal prolapse Cystocele, midline Essential hypertension 06/14/2020 Homozygous Factor V Leiden mutation ([facility]) 05/03/2020 Hypothyroidism IBS (irritable [...] 09/11) - Repeat echo 3 months post ASSISTANT CENTER MANAGER-D (~10/2023) - Jardiance started 08/31 and Lasix discontinued - BMP 2 weeks after starting Jardiance - Consider increase Losartan dose pending Jardiance response Nonischemic cardiomyopathy - [facility] 10/2021: mod LAD, D1 prox 40%, mild RCA disease - GDMT: - s/p ASSISTANT CENTER MANAGER-D 07/16/23 at [facility] - Follows with advanced heart failure, - Follows with EP, Dr. Wellington Left bundle branch block - s/p ASSISTANT CENTER MANAGER-D 07/16/23 at [facility] - Follows with EP, Dr. Wellington Nonobstructive coronary artery disease - [facility] 10/2021: mod LAD, D1 prox 40%, mild [...] October to assess LVEF 3 months s/p ASSISTANT CENTER MANAGER-D. Her most recent cholesterol profile is not [...] Cardiology Nurse Practitioner Section of Regional Cardiology [facility] Dept of Cardiovascular Medicine [facility] [place] [address] Office Office This note was partially generated using Authorly voice recognition system and may contain errors related to that system including grammar, punctuation, spelling, and words that may be inappropriate documented in this encounterCincinnati [facility]04-15-2024 Miscellaneous Notes* Telephone Encounter - [...] as she states she recently saw her regulatory affairs manager and was put on Jardiance. She is calling to see if there is any problem to starting the Jardiance and taking the Fluconozole? Please call pt back after provider review. documented in this encounterCincinnati [facility]04-12-2024 Miscellaneous Notes* Telephone Encounter - [...] lasix is she taking? documented in this encounterCincinnati Children'S [facility] Center04-10-2024 Instructions* Patient Instructions* Alejandrina Harvey APRN.TIM - 08/22/2023 11:16 AM EDT Take the prednisone (steroid) if needed for your gout pain. Start taking the omeprazole for your silent reflux, take this at night if you're able. Take the diflucan for yeast infection today. You can repeat it in 3 days if necessary. Your urine testing looks completely normal. documented in this encounterCincinnati Children'[facility]04-10-2024 History of Present illness Narrative* [...] on chronic systolic CHF (congestive heart failure) ([facility]) 05/03/2020 Aspiration pneumonia ([facility]) 05/30/2020 Chest pain 05/03/2020 Chest pressure 01/23/2013 Chronic diastolic congestive heart failure ([facility]) 02/14/2021 Clostridium difficile diarrhea 09/28/2020 Complete uterovaginal prolapse Cystocele, midline Essential hypertension 06/14/2020 Homozygous Factor V Leiden mutation ([facility]) 05/03/2020 Hypothyroidism IBS (irritable [...] OMEPRAZOLE 20 MG CAPSULE,DELAYED RELEASE Alejandrina Harvey APRN.GEOPHYSICS SCIENTIST documented in this encounterCincinnati [facility]03-26-2024 History of Present illness Narrative* Dilcia Pearson MD - 08/07/2023 3:22 PM EDT Images from the original note were not included. [facility] Department of Cardiovascular Medicine SECTION OF CARDIAC PACING and ELECTROPHYSIOLOGY OUTPATIENT VISIT DATE August 07, 2023 OUTPATIENT VISIT TYPE ESTABLISHED PRIMARY CARE PHYSICIAN: Mandeep Houser [address] [place] [address] REFERRING PHYSICIAN: No referring provider defined for this encounter. CHIEF COMPLAINT: Left bundle branch block, nonischemic cardiomyopathy, status post ASSISTANT CENTER MANAGER-D HISTORY OF PRESENT ILLNESS: Ms. Schmitz is [...] shows normal lead parametersand effective delivery of ASSISTANT CENTER MANAGER. She reports notable improvement in symptoms. We will monitor her device remotely every 3 months Follow-up with EP team on an annual basis CONTACT INFORMATION: Dilcia Bonilla MD documented in this encounterCincinnati [facility]03-25-2024 Miscellaneous Notes* Telephone Encounter - Helen Ramachandran RN - 08/06/2023 3:41 PM EDT Spoke with pt to confirm appt with Dr. Wells tomorrow. documented in this encounterCincinnati [facility]03-16-2024 Miscellaneous Notes* Telephone Encounter - [...] device related. Please advise. documented in this encounterCincinnati [facility]'S [facility] Center03-13-2024 Miscellaneous Notes* Telephone Encounter - [...] you. Mane Pennington LPN. documented in this encounterCincinnati Children'S [facility] Center03-13-2024 Miscellaneous Notes* Telephone Encounter - Mane Pennington LPN - 07/25/2023 2:06 PM EDT Phoned patient and went over results, notes from Dr Houser with understanding. * Telephone Encounter - Mandeep Houser DO - 07/25/2023 1:49 PM EDT Please let patient know that overall her labs are stable. No changes at this time Mandeep Houser DO documented in this encounterCincinnati Children'S [facility] Center03-12-2024 History of Present illness Narrative* [...] beta-lorenzo. Unable to schedule pacer defibrillator and [place] and contacted [facility] in August to have Dr. Wellington do [...] pacer defibrillator plan to be done at [place] Disposition: Transfer to [place] on hospital medicine with consult to Dr. [...] 24 Has a follow up scheduled with Licsw / Cardiac surgeon in the next 2 [...] and fatigue is improving. Follow up with Licsw/surgeon Recheck labs. She is taking the metoprolol [...] and fatigue is improving. Follow up with Licsw/surgeon Recheck labs. She is taking the metoprolol medication - COMP METABOLIC PANEL - CBC + DIFF 5. Acute hypoxic respiratory failure (HCC) - ICD9: 518.81, ICD10: J96.01 - recently hospitalized and medications adjusted down and off Entresto. Had biventricular pacemakerand defibrillator placed and fatigue is improving. Follow up with Licsw/surgeon Recheck labs. She is taking the metoprolol medication - COMP METABOLIC PANEL - CBC + DIFF 6. Chronic bronchitis, unspecified chronic bronchitis type (HCC) - ICD9: 491.9, ICD10: J42 - recently hospitalized and medications adjusted down and off Entresto. Had biventricular pacemakerand defibrillator placed and fatigue is improving. Follow up with Licsw/surgeon Recheck labs. She is taking the metoprolol medication - COMP METABOLIC PANEL - CBC + DIFF 7. Atrial fibrillation, unspecified type (HCC) - ICD9: 427.31, ICD10: I48.91 - recently hospitalized and medications adjusted down and off Entresto. Had biventricular pacemakerand defibrillator placed and fatigue is improving. Follow up with Licsw/surgeon Recheck labs. She is taking the metoprolol medication - COMP METABOLIC PANEL - CBC + DIFF 8. SVT (supraventricular tachycardia) (HCC) - ICD9: 427.89, ICD10: I47.10 - recently hospitalized and medications adjusted down and off Entresto. Had biventricular pacemakerand defibrillator placed and fatigue is improving. Follow up with Licsw/surgeon Recheck labs. She is taking the metoprolol [...] with the plan. Mandeep Houser DO [address] [place] [address] documented in this encounterCincinnati [facility]03-08-2024 History of Present illness Narrative* Fitz Mcqueen RN - 07/20/2023 1:09 PM EST TCM Home Visit Referral Source of Stratification: [facility] Admission Status: Discharged Readmission Risk [...] Dept Phone 07/24/2023 1:40 PM MANDEEP HOUSER [facility] [phone] 08/07/2023 2:30 PM DEVICE CLINIC CARD EPS EDENILSON Reed [phone] 08/07/2023 3:00 PM KITTY MUNOZTODILCIAWestVal[facility] [phone] 08/07/2023 3:30 PM PILI [facility] [phone] SUMMARY: Discharge Network Status: In-Network Discharge Pt discharged from [facility] [facility] on 07/18/23. Admitted for: Bradycardia Contact made with patient: Yes Hi my name is Fitz Mcqueen RN and I am calling from the [facility] on behalf of your PCP, [...] like to speak with a social work bioinformatics team member to help give you support [...] I will send your request to a life care planner who will contact and assist you with [...] No Fitz Mcqueen RN documented in this encounterCincinnati [facility]'S [facility]03-08-2024 Miscellaneous Notes* Telephone Encounter - Cathy Munguia - 07/20/2023 10:17 AM EST PATIENT INFORMATION Record ID: [id number] [facility]: [place] [facility]: [facility] Attending: Angelica Silva Center: Hospital Medicine INSTRUCTIONS SN to remind patient of next upcoming appointment date, time, location All Clear SURVEY INFORMATION Medical/Nurse Machine Milker: Cathy Prakash 1. Your discharge instructions are [...] symptoms? (Standard Question) No documented in this encounterCincinnati Children'S [facility] Center03-05-2024 NoteHNO ID: [id number] Author: ANGELICA SILVA MD Service: Hospital Medicine Author Type: Physician Type: Progress Notes Filed: 07/18/2023 09:37 Note Text: DEPARTMENT OF HOSPITAL MEDICINE PROGRESS NOTE SERVICE DATE: 07/17/2023 SERVICE TIME: 5:22 PM Hospital Medicine/Primary Attending: Angelica Silva MD NIGHT AND WEEKEND COVERAGE: [place] COVERAGE:Team 5 Subjective INTERVAL HPI: The patient [...] at home that made her come to [facility] Patient reports when she was off [...] and Airways Line Duration Peripheral 07/15/[address] [facility] Short Right Forearm 20 Gauge 2 days Peripheral 07/16/[address] [facility] Left Wrist 20 Gauge 1 day DATA: Diagnostic tests reviewed for today's visit: Most recent labs and imaging results. 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 chronic LBBB 77 year old female, who presented to [facility] ER due to concerns for chest pressure with associated postural lightheadedness and dyspnea She was subsequently admitted to [facility] She had lexiscan stress test which was [...] IV Lasix And she was transferred to [facility] for consideration of inpatient ASSISTANT CENTER MANAGER implantation given her left bundle branch block Pt was seen by EP and she had MDT ASSISTANT CENTER MANAGER-D insertion on 08/14 In regards to heart [...] week follow up with EP ROSEMARY at [facility] office with device check prior. Medication [...] July 17, 2023 TIME: 5:22 PM etx [id number] Cod And The Islands Mental Health CenterRabgsxpy91-93-8696 NoteHNO ID: [id number] Author: ANGELICA SILVA MD Service: Hospital Medicine [...] levels are clinically Insignificant Other, please specify [facility] [id number] Miscellaneous Notes* Telephone Encounter - Morenita Hill APRN.CNP - 07/17/2023 11:04 AM EST Please call patient to arrange for appointment with EP ROSEMARY or Dr. Wellington with device check immediately prior at P office. If we could coordinate this for same day she is seeing Dr. Wells, that wouldbe great, in the next ~2 weeks. Thank you! Morenita Hill APRN.CNP documented in this encounterCincinnati Children'S [facility] Center03-04-2024 NoteHNO ID: [id number] Author: GRISELDA SALMERON MD Service: Anesthesiology Author [...] Schmitz DATE: 2023 TIME: 5:03 PM CSN: [id number] NoteHNO ID: [id number] Author: KEKE DENG APRN.CRNA Service: ? Author Type: Nurse Cleaner Signs Type: Anesthesia Procedure Notes Filed: 2023 14:19 Note Text: ANESTHESIOLOGY PROCEDURE NOTE Airway General Information Procedure Start Time/Medication Administration: 2023 1:49 PM Patient location during procedure: OR Timeout Performed Pre-procedure: timeout performed Consent Obtained: Yes Patient identity confirmed: arm band and patient Staffing CARE NAVIGATOR: Keke Deng APRN.CRNA Indications and Patient Condition [...] approach: 1 Airway not difficult SIGNATURE: Keke Dneg APRN.CRNA PATIENT NAME: Sandra Schmitz DATE: 2023 TIME: 2:19 PM CSN: [id number] NoteHNO ID: [id number] Author: ANGELICA SILVA MD Service: Hospital Medicine Author Type: Physician Type: Progress Notes Filed: 2023 13:44 Note Text: DEPARTMENT OF HOSPITAL MEDICINE PROGRESS NOTE SERVICE DATE: 2023 SERVICE TIME: 1:41 PM Hospital Medicine/Primary Attending: Angelica Silva MD NIGHT AND WEEKEND COVERAGE: [place] COVERAGE:Team 5 Subjective INTERVAL HPI: Patient is [...] and Airways Line Duration Peripheral 07/15/[address] [facility] Short Right Forearm 20 Gauge 1 day DATA: Diagnostic tests reviewed for today's visit: Most recent labs and imaging results. 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 chronic LBBB 77 year old female, who presented to [facility] ER due to concerns for chest pressure with associated postural lightheadedness and dyspnea She was subsequently admitted to [facility] She had lexiscan stress test which was [...] IV Lasix And she was transferred to [facility] for consideration of inpatient ASSISTANT CENTER MANAGER implantation given her left bundle branch block Patient currently reports significant improvement in chest pain and shortness of breath compared to admission X-ray of the chest no acute cardiopulmonary process proBNP improved Seen by EP appreciate input PT for ASSISTANT CENTER MANAGER placement today Plan Continue IV Lasix ( Switch to PO soon) Monitor volume status Consulted with Dr. Wells, advanced heart failure specialist, ASSISTANT CENTER MANAGER today Started on lower dose Entresto 24-26 [...] Schmitz DATE: 2023 TIME: 1:41 PM etx [id number] Cod And The Islands Mental Health [id number] NoteHNO ID: [id number] Author: ANGELICA SILVA MD Service: Hospital Medicine Author Type: Physician Type: Progress Notes Filed: 07/15/2023 15:41 Note Text: DEPARTMENT OF HOSPITAL MEDICINE PROGRESS NOTE SERVICE DATE: 07/15/2023 SERVICE TIME: 3:33 PM Hospital Medicine/Primary Attending: Angelica Silva MD NIGHT AND WEEKEND COVERAGE: [place] COVERAGE:Team 5 Subjective INTERVAL HPI: Patient is [...] and Airways Line Duration Peripheral 07/15/[address] [facility] Short Right Forearm 20 Gauge <1 day DATA: Diagnostic tests reviewed for today's visit: Most recent labs and imaging results. 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 EP tentatively planning for ASSISTANT CENTER MANAGER Sunday Started on lower dose Entresto 24-26 [...] July 15, 2023 TIME: 3:33 PM etx [id number] Cod And The Islands Mental Health [id number] NoteHNO ID: [id number] Author: ANGELICA SILVA MD Service: Hospital Medicine Author Type: Physician Type: Progress Notes Filed: 07/14/2023 20:15 Note Text: DEPARTMENT OF HOSPITAL MEDICINE PROGRESS NOTE SERVICE DATE: 07/14/2023 SERVICE TIME: 8:01 PM Hospital Medicine/Primary Attending: Angelica Silva MD NIGHT AND WEEKEND COVERAGE: [place] COVERAGE:Team 5 Subjective INTERVAL HPI: patient is [...] 77 year old female, who presented to [facility] ER due to concerns for chest pressure with associated postural lightheadedness and dyspnea She was subsequently admitted to [facility] She had lexiscan stress test which was [...] IV Lasix And she was transferred to [facility] for consideration of inpatient ASSISTANT CENTER MANAGER implantation given her left bundle branch block Patient currently reports significant improvement in chest pain and shortness of breath compared to admission X-ray of the chest no acute cardiopulmonary process proBNP improved Seen by EP appreciate input Plan Continue IV Lasix Monitor volume status Consult with Dr. Wells, advanced heart failure specialist, on Sunday morning. EP tentatively planning for ASSISTANT CENTER MANAGER Sunday Started on lower dose Entresto 24-26 [...] July 14, 2023 TIME: 8:01 PM etx [id number] Cod And The Islands Mental Health CenterBkgjquzs13-78-8914 NoteHNO ID: [id number] Author: ESTELITA LAMB APRN.CNP Service: Cardiovascular Medicine Author Type: Nurse Practitioner Type: Progress Notes Filed: 07/13/2023 09:28 Note Text: [facility] [place] [facility] Department of Cardiovascular Medicine SECTION OF [facility] CARDIOLOGY/[facility] Progress Note Elements of this note, including [...] DO Consulting Physician: Remington Cai MD Primary Licsw: Dr. Oneill SERVICE DATE: July 13, 2023 [...] with SOB, chest pain and lightheadedness - [facility] 10/2021: Moderate LAD and D1 proximal disease [...] - QRS = 176 mx - pending ASSISTANT CENTER MANAGER-D implant Palpitations - present PRINCIPAL DATA ARCHITECT - zio 06/2023: Patient had a min [...] noted on admission - call placed to [facility] EP service to discuss considerations for expedited ASSISTANT CENTER MANAGER-D CAD - chest pain on admission has resolved - [facility] 10/2021: Moderate LAD and D1 proximal disease [...] last evening who agrees with transfer to [facility] for refractory HF despite medical therapy. Patient pending transfer to [facility] via medicine team with consults to EP and advanced heart failure. Patient aware of plan and agreeable. Case discussed with Dr. Lobo and nursing staff. Estelita Lamb APRN.GEOPHYSICS SCIENTIST 07/13/2023 9:21 AM PAST MEDICAL HISTORY PAST [...] IN 2009 EGD 11/08/2012 (more content not included)...[facility] [id number] Miscellaneous Notes* Telephone Encounter - Rahul Bee MD - 07/13/2023 7:23 AM EST Hospital Medicine Transfer Received page for transfer request from [facility] to [facility]: Sandra Schmitz is 77 year old female who presented with non ischemic decompensated heart failure EF 26%. Suspected runs of tachycardia of unclear origin. Being transferred for possible ASSISTANT CENTER MANAGER. Cannot tolerate betablocker. Currently SBP in 100s. No ICD before. Mild CAD. Reason for transfer: Possible ASSISTANT CENTER MANAGER placement Accepted to hospital medicine service at 7:26PM Rahul Bee MD 7:23 AM documented in this encounterCincinnati Children'S [facility] Center02-29-2024 NoteHNO ID: [id number] Author: ESTELITA LAMB APRN.GEOPHYSICS SCIENTIST Service: Cardiovascular Medicine Author Type: Nurse Practitioner Type: Progress Notes Filed: 07/12/2023 18:56 Note Text: [facility] Department of Cardiovascular Medicine SECTION OF [facility] CARDIOLOGY/[facility] Progress Note Elements of this note, including [...] DO Consulting Physician: Remington Cai MD Primary Licsw: Dr. Oneill SERVICE DATE: July 12, 2023 [...] with SOB, chest pain and lightheadedness - [facility] 10/2021: Moderate LAD and D1 proximal disease [...] 0.9 kg since admission LBBB - pending ASSISTANT CENTER MANAGER-D implant Palpitations - present PRINCIPAL DATA ARCHITECT - zio 06/2023: Patient had a min [...] noted on admission - call placed to [facility] EP service to discuss considerations for expedited ASSISTANT CENTER MANAGER-D CAD - chest pain on admission has resolved - [facility] 10/2021: Moderate LAD and D1 proximal disease [...] Dr. Castro and nursing staff. Estelita Lamb APRN.GEOPHYSICS SCIENTIST 07/12/2023 1:26 PM ADDENDUM: Echo today shows EF 26% Discussed patient with Dr. Wellington ant [facility] who is agreeable for patient transfer for refractory heart failure despite medications. We will start transfer process via medicine team with consult to EP and advanced heart failure at [place]. Consideration for ASSISTANT CENTER MANAGER-D implant per Dr. Wellington and EP team. Estelita Lamb APRN.GEOPHYSICS SCIENTIST 07/12/23 6:55 PM PAST MEDICAL HISTORY PAST MEDICAL HISTORY Diagnosis Date Acute acalculous cholecystitis 05/30/2020 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 09/22/2020 Acute on chronic systolic CHF (congestive heart failure) (HCC) 05/03/2020 Aspiration pneumonia ([facility]) 05/30/2020 Chest pain 05/03/2020 [...] UTERUS PAST SURGICAL HIST (more content not included)...[id number] Note HNO ID: [id number] Author: REMINGTON CAI MD Service: Hospital Medicine Author Type: Physician Type: Progress Notes Filed: 07/12/2023 10:40 Note Text: DEPARTMENT OF HOSPITAL MEDICINE PROGRESS NOTE SERVICE DATE: 07/12/2023 SERVICE TIME: 9:21 AM Hospital Medicine/Primary Attending: Remington Cai MD NIGHT AND WEEKEND COVERAGE: [place] [employer]: Nights: [phone], please page [place] Hospitalist Night coverage pager [phone]. Reason for Admission: Acute decompensated heart failure concern for ventricular tachycardia being the precipitating factor INTERVAL HPI: I called electrophysiology and they had no openings. Could page 2 [facility] toddler lead teacher on-call Dr. Castro who will see if Dr. Wellington at [facility] did not do the pacer defibrillator. My [...] fibrillation. She has seen Dr. Greenfield the toddler lead teacher. She is to be scheduled for pacer [...] needs diuresis. Dr. Virk (more content not included)...[facility] [id number] NoteHNO ID: [id number] Author: ESTELITA LAMB APRN.TIM Service: Cardiovascular Medicine Author Type: Nurse Practitioner Type: Plan of Care Filed: 07/11/2023 15:22 Note Text: Patient stress test reviewed. Shows no ischemia but low EF. Echo planned for tomorrow. Pending ASSISTANT CENTER MANAGER-D as OP >>> Dr. Sams is facilitating discussion on timing of implant. Will follow. Estelita Lamb APRN.GEOPHYSICS SCIENTIST Cardiology Nurse Practitioner Section of Regional Cardiology [facility] Dept of Cardiovascular Medicine [facility] Heart and Vascular [place] [address] [address] Office Office [place] [id number] NoteHNO ID: [id number] Author: REMINGTON CAI MD Service: Hospital Medicine Author Type: Physician Type: Progress Notes Filed: 07/11/2023 14:17 Note Text: DEPARTMENT OF HOSPITAL MEDICINE PROGRESS NOTE SERVICE DATE: 07/11/2023 SERVICE TIME: 1:06 PM Hospital Medicine/Primary Attending: Remington Cai MD NIGHT AND WEEKEND COVERAGE: [place] [employer]: Nights: [phone], please page [place] Hospitalist Night coverage pager [phone]. Reason for Admission: Acute decompensated heart failure [...] beta-lorenzo held Nuclear stress test-see below [employer] message sent to concerning pacer defibrillator placement [...] fibrillation. She has seen Dr. Greenfield the toddler lead teacher. She is to be scheduled for pacer [...] Acute on chronic systolic (more content not included)...[facility] 06-12-2023 NoteHNO ID: [id number] Author: FLACA GREENFIELD MD Service: ? Author Type: Physician Type: Progress Notes Filed: 06/12/2023 16:02 Note Text: Heart and Vascular [place] [facility] SECTION OF CARDIAC PACING and ELECTROPHYSIOLOGY OUTPATIENT VISIT DATE June 12, 2023 OUTPATIENT VISIT TYPE NEW PRIMARY CARE PHYSICIAN: Mandeep Houser [address] [place] [address] REFERRING PHYSICIAN: Santo Oneill MD. HISTORY OF PRESENT ILLNESS: 77-year-old female with history of nonischemic cardiomyopathy, severe LV systolic function, LVEF of 30% despite GDMT, LBBB with QRS of 170 ms, was referred for consideration of ASSISTANT CENTER MANAGER-D system implantation for prevention of sudden cardiac [...] on chronic systolic CHF (congestive heart failure) ([facility]) 05/03/2020 Aspiration pneumonia ([facility]) 05/30/2020 Chest pain 05/03/2020 Chest pressure 01/23/2013 Chronic diastolic congestive heart failure ([facility]) 02/14/2021 Clostridium difficile diarrhea 09/28/2020 Complete uterovaginal prolapse Cystocele, midline Essential hypertension 06/14/2020 Homozygous Factor V Leiden mutation ([facility]) 05/03/2020 Hypothyroidism IBS (irritable [...] Arm Large Adult Physic (more content not included)...[facility]01-04-2024 History of Present illness Narrative* Luzma Vega [...] 17, 2023 1:31 PM documented in this encounterCincinnati [facility]12-14-2023 Miscellaneous Notes* Telephone Encounter - Bria Shah MA - 04/26/2023 2:37 PM EST Patient notified of results, verbalizes understanding of instructions. Bria Shah MA * Telephone Encounter - Mandeep Houser DO - 04/26/2023 2:24 PM EST Please inform patient that her mammogram is normal/negative. She will need routine screening mammogram in 1 year. Thanks CELIA Gamez documented in this encounterCincinnati Children'[facility] Center12-12-2023 Miscellaneous Notes* Telephone Encounter - Vinita Harman - 04/24/2023 2:06 PM EST Patient is scheduled at on 05/28/[address] Angel Gaxiola. * Telephone Encounter - Mandeep Houser DO - 04/17/2023 4:59 PM EST Patient is supposed to be seen by Urgent Care Technician / Cardiology per recommendations by Dr. Oneill. She is asking office if this is scheduled yet? Please clarify Mandeep Houser DO documented in this encounterCincinnati Children'[facility] Center11-27-2023 History of Present illness Narrative* Santo Oneill MD - 04/09/2023 5:19 PM EST Images from the original note were not included. Santo Oneill MD Interventional Cardiology [address] [place] [address] Chief Complaint Patient presents with: Established Patient [...] to correct any errors. documented in this encounterCincinnati [facility] Center10-19-2023 Miscellaneous Notes* Telephone Encounter - [...] months Mandeep Houser DO documented in this encounterCincinnati Children'S [facility] Center08-30-2023 History of Present illness Narrative* [...] [facility]. No fevers or chills. Present the last few weeksoff and on PAST MEDICAL HISTORY Diagnosis Date Acute acalculous cholecystitis 05/30/2020 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 09/22/2020 Acute on chronic systolic CHF (congestive heart failure) ([facility]) 05/03/2020 Aspiration pneumonia ([facility]) 05/30/2020 Chest pain 05/03/2020 Chest pressure 01/23/2013 Chronic diastolic congestive heart failure ([facility]) 02/14/2021 Clostridium difficile diarrhea 09/28/2020 Complete uterovaginal prolapse Cystocele, midline Essential hypertension 06/14/2020 Homozygous Factor V Leiden mutation ([facility]) 05/03/2020 Hypothyroidism IBS (irritable [...] plan. See patient instructions. Mandeep Houser DO [address] [place] [address] documented in this encounterCincinnati [facility]08-29-2023 Instructions* Patient Instructions* Mandeep Houser DO - 01/09/2023 1:53 PM EDT Decrease dose of thyroid medication to 88 mcg a day, new rx sent into [facility] Recheck labs in 1 month, these are ordered. Can be done non fasting If front of neck symptoms aren't better, I will order ultrasound. Let me konw documented in this encounterCincinnati Children'[facility] Center08-29-2023 Miscellaneous Notes* Telephone Encounter - [...] and advise. Sandra Wells documented in this encounterCincinnati Children'[facility] Center08-17-2023 Miscellaneous Notes* Telephone Encounter - [...] her back? * Telephone Encounter - Mandeep Houesr DO - 12/26/2022 7:25 AM EDT Please [...] when able. Thank you. documented in this encounterCincinnati [facility] Center08-08-2023 Miscellaneous Notes* Telephone Encounter - Alejandrina Barnes LPN - 12/19/2022 8:59 AM EDT Patient notified. Verbalized understanding. * Telephone Encounter - Mandeep Houser DO - 12/19/2022 8:08 AM EDT Please inform patient that her CXR is normal Mandeep Houser DO documented in this encounterCincinnati [facility] Center08-03-2023 History of Present illness Narrative* [...] 14, 2022 10:38 AM documented in this encounterCincinnati [facility] Center06-19-2023 Miscellaneous Notes* Telephone Encounter - Leyla Ferreira RN - 10/30/2022 10:48 AM EDT Addendum completed by Dr. Mata and faxed to [facility]. * Telephone Encounter - Sincere Berger RN - 10/24/2022 1:25 PM EDT Received fax from [facility] requesting addendum to 08/[address]. [address] Testrakes desk. documented in this encounterCincinnati Children'[facility] Center06-04-2023 Miscellaneous Notes* Telephone Encounter - [...] care provider or schedule a visit with [facility]. A test is not recommended to return to work/school when meeting the above criteria. Estelita Pinon APRN.CNP documented in this encounterCincinnati [facility] Center06-03-2023 History of Present illness Narrative* [...] plan. Shanell Cox APRN.CNP documented in this encounterCincinnati [facility]05-31-2023 History of Present illness Narrative* [...] on chronic systolic CHF (congestive heart failure) ([facility]) 05/03/2020 Aspiration pneumonia ([facility]) 05/30/2020 Chest pain 05/03/2020 Chest pressure 01/23/2013 Chronic diastolic congestive heart failure ([facility]) 02/14/2021 Clostridium difficile diarrhea 09/28/2020 Complete uterovaginal prolapse Cystocele, midline Essential hypertension 06/14/2020 Homozygous Factor V Leiden mutation ([facility]) 05/03/2020 Hypothyroidism IBS (irritable [...] See patient instructions. Mandeep Houser DO [address] [place] [address] documented in this encounterCincinnati [facility]05-11-2023 Miscellaneous Notes* Telephone Encounter - Leyla Ferreira RN - 09/21/2022 2:51 PM EDT Refaxed forms to [facility]. * Telephone Encounter - Rachelle Stout LPN - 09/21/2022 1:38 PM EDT Shana varner called stating that fax sent only came thru as every other page and the whole fax was not received. Please refax paper work to [phone] Rachelle Stout LPN documented in this encounterCincinnati [facility]05-01-2023 Miscellaneous Notes* Telephone Encounter - Sincere Berger RN - 09/11/2022 11:44 AM EDT Received fax from [facility] for Orthosis order. Forms filled out and signed by Dr. Mata andfaxed back to [place] with office notes. Fax number: [phone] documented in this encounterCincinnati Children'[facility] Center04-24-2023 History of Present illness Narrative* [...] 2022 TIME: 2:30 PM documented in this encounterCincinnati [facility] Center04-13-2023 History of Present illness Narrative* [...] OMT in the past Has a ZIO deck steward in place currently Abdominal discomfort, fullness feeling and distension feeling, gassiness/intermittent nausea, hx ofcholecystectomy >1 year ago, no vomiting. Feels like she could at times. No blood in stool. Symptoms worsening over weeks time PAST MEDICAL HISTORY Diagnosis Date Acute acalculous cholecystitis 05/30/2020 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 09/22/2020 Acute on chronic systolic CHF (congestive heart failure) ([facility]) 05/03/2020 Aspiration pneumonia ([facility]) 05/30/2020 Chest pain 05/03/2020 Chest pressure 01/23/2013 Chronic diastolic congestive heart failure ([facility]) 02/14/2021 Clostridium difficile diarrhea 09/28/2020 Complete uterovaginal prolapse Cystocele, midline Essential hypertension 06/14/2020 Homozygous Factor V Leiden mutation ([facility]) 05/03/2020 Hypothyroidism IBS (irritable [...] See patient instructions. Mandeep Houser DO [address] [place] [address] documented in this encounterCincinnati [facility] Center04-03-2023 History of Present illness Narrative* Santo Oneill MD - 08/14/2022 11:58 AM EDT Images from the original note were not included. Santo Oneill MD Interventional Cardiology [facility] [address], [place] [address] [phone] Chief Complaint Patient presents with: Established Patient [...] on chronic systolic CHF (congestive heart failure) ([facility]) 05/03/2020 Aspiration pneumonia ([facility]) 05/30/2020 Chest pain 05/03/2020 Chest pressure 01/23/2013 Chronic diastolic congestive heart failure ([facility]) 02/14/2021 Clostridium difficile diarrhea 09/28/2020 Complete uterovaginal prolapse Cystocele, midline Essential hypertension 06/14/2020 Homozygous Factor V Leiden mutation ([facility]) 05/03/2020 Hypothyroidism IBS (irritable [...] INSTRUCTIONS Patient Name: Sandra Schmitz Clinic Number: [id number] Skin prepped and cleansed with alcohol Patch secured to prepped area Monitor Activated Serial #: [id number] Patient Instructed: Prescribed order timeframe Bathing guidelines Usage of event button and diary documentation Return of monitor at the end of prescribed order Call with problems [phone] or [phone]. [phone] Patient expresses a good understanding of instructions Anni Roldan * Santo Oneill MD - 08/14/2022 11:57 AM EDT Images from the original note were not included. Santo Oneill MD Interventional Cardiology [facility] [address], [place] [phone] Chief Complaint Patient presents with: Established Patient [...] to correct any errors. documented in this encounterCincinnati Children'[facility] Center03-30-2023 History of Present illness Narrative* Mandeep Houser, - 08/10/2022 11:20 AM EDT CC: Sandra Schmitz is a 77 year old female who presents to the office for OMT HPI: Here for OMT today, has had complex care nurse and OMT in the past. Right mid [...] on chronic systolic CHF (congestive heart failure) ([facility]) 05/03/2020 Aspiration pneumonia ([facility]) 05/30/2020 Chest pain 05/03/2020 Chest pressure 01/23/2013 Chronic diastolic congestive heart failure ([facility]) 02/14/2021 Clostridium difficile diarrhea 09/28/2020 Complete uterovaginal prolapse Cystocele, midline Essential hypertension 06/14/2020 Homozygous Factor V Leiden mutation ([facility]) 05/03/2020 Hypothyroidism IBS (irritable [...] plan. See patient instructions. Mandeep Houser DO [address] [place] [address] documented in this encounterCincinnati [facility] Center03-30-2023 History of Present illness Narrative* [...] on chronic systolic CHF (congestive heart failure) ([facility]) 05/03/2020 Aspiration pneumonia ([facility]) 05/30/2020 Chest pain 05/03/2020 [...] plan. See patient instructions. Mandeep Houser DO [address] [place] [address] documented in this encounterCincinnati [facility]03-23-2023 History of Present illness Narrative* [...] 03, 2022 10:33 AM documented in this encounterCincinnati [facility]03-15-2023 Miscellaneous Notes* Telephone Encounter - [...] day Alejandrina Harvey APRN.CNP documented in this encounterCincinnati [facility] Center03-14-2023 History of Present illness Narrative* [...] 25, 2022 3:03 PM documented in this encounterCincinnati [facility]03-10-2023 Instructions* Patient Instructions* Alejandrina Harvey [...] your usual activities immediately. documented in this encounterCincinnati [facility] Center03-10-2023 History of Present illness Narrative* [...] on chronic systolic CHF (congestive heart failure) ([facility]) 05/03/2020 Aspiration pneumonia ([facility]) 05/30/2020 Chest pain 05/03/2020 [...] ICD10: Z13.820 - DXA-AXIAL SKELETON Alejandrina Harvey APRN.GEOPHYSICS SCIENTIST documented in this encounterCincinnati [facility] Center03-07-2023 History of Present illness Narrative* [...] plan. See patient instructions. Mandeep Houser DO [address] [place] [address] documented in this encounterCincinnati [facility] Center01-12-2023 Miscellaneous Notes* Telephone Encounter - [...] concerns. Mandeep Houser DO documented in this encounterCincinnati Children'S [facility] Center01-03-2023 Miscellaneous Notes* Telephone Encounter - [...] from pharmacy's request. Please send RX to [facility] in [place]. documented in this encounterCincinnati Children'[facility] Center12-21-2022 History of Present illness Narrative* [...] See patient instructions. Mandeep Houser DO [address] [place] [address] documented in this encounterCincinnati Children'[facility] Center12-21-2022 Miscellaneous Notes* Telephone Encounter - [...] Please advise the patient. documented in this encounterCincinnati Children'[facility] Center11-23-2022 History of Present illness Narrative* Enmanuel Sahu - 04/05/2022 11:02 AM EST POPULATION HEALTH NAVIGATION OUTREACH Action/I RP Outreach: Contacted patient to schedule ROBEL Consult for Chronic pain of right ankle [M25.571, G89.29] and patient requested to call back [phone]. Any agent can assist. Pt identified by name and : YES, via Sr.Pago Outreach Outcome/Action Spoke to patient or caregiver: [...] 05, 2022 11:03 AM documented in this encounterCincinnati [facility]11-18-2022 History of Present illness Narrative* Santisujit Sahu - 03/31/2022 2:07 PM EST POPULATION HEALTH NAVIGATION OUTREACH Action/I RP Outreach: LVM for Patient to call back and schedule ROBEL Consult for Chronic pain of right ankle [M25.571, G89.29]. [phone]. Any agent can assist. Pt identified by name and : YES, via Sr.Pago Outreach Outcome/Action Unable to reach patient: Left [...] 31, 2022 2:07 PM documented in this encounterCincinnati [facility] Center10-31-2022 Miscellaneous Notes* Telephone Encounter - Kelsey Costa LPN - 03/13/2022 9:59 AM EDT Pt. informed, * Telephone Encounter - Alejandrina Harvey APRN.CNP - 03/13/2022 7:45 AM EDT Please let Sandra know that her COVID and flu tests are negative. Alejandrina Harvey APRN.CNP documented in this encounterCincinnati Children'[facility] Center10-28-2022 Miscellaneous Notes* Telephone Encounter - Griselda Harris Ma - 03/10/2022 11:08 AM EDT Faxed 03/10/2022 BRANDI Harris Ma * Telephone Encounter - Alejandrina Harvey APRN.CNP - 03/10/2022 10:14 AM EDT Please fax podiatry consult to Dr. Contreras's office. Alejandrina Harvey APRN.CNP documented in this encounterCincinnati Children'[facility] Center10-03-2022 History of Present illness Narrative* Santo Oneill MD - 02/13/2022 12:21 PM EDT Images from the original note were not included. Santo Oneill MD Interventional Cardiology [address] [place] [address] Chief Complaint Patient presents with: Follow Up [...] on chronic systolic CHF (congestive heart failure) ([facility]) 05/03/2020 Aspiration pneumonia ([facility]) 05/30/2020 Chest pain 05/03/2020 [...] 1 tablet by mouth once daily. 90 qnyzsf86 L. acidophilus/L. rhamnosus ([facility]) Take [...] to correct any errors. documented in this encounterCincinnati Children'[facility] Center09-09-2022 History of Present illness Narrative* Alejandrina Harvey, MELI.GEOPHYSICS SCIENTIST - 01/20/2022 10:51 AM EDT Chief Complaint Patient presents with: Follow Up: Review lab work HPI Sandra Schmitz is a 76 year old female who presents here today for Above Complaints. Today: Would like to review her lab results today. Knows that her cholesterol still elevated, but has not tolerated Lipitor or Crestor. She is awaiting a call back from her regulatory affairs manager in regards to possibly starting a new [...] with cardiology. 4. 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 Thank you, Saqib. MELI Culp.GEOPHYSICS SCIENTIST documented in this encounterCincinnati Children'[facility]08-16-2022 Miscellaneous Notes* Telephone Encounter - [...] you. Anni Herrera LPN documented in this encounterCincinnati Children'[facility] Center08-08-2022 Instructions* Patient Instructions* Sincere Perkins PA-C - 12/19/2021 9:33 AM EDT The following instructions are important for you related to your office visit today with the [facility]. -Continue omeprazole for 1-2 [...] you should contact our office immediately @ [phone] and ask to be transferred to the General Surgery department. documented in this encounterCincinnati Children'[facility] Center08-08-2022 History of Present illness Narrative* Sincere Perkins PA-C - 12/19/2021 9:15 AM EDT FOLLOW UP VISIT - ENDOSCOPY NAME: Sandra Ricardo [facility] NO.: [id number] DATE OF SERVICE: 12/19/2021 : 1945 REFERRING PHYSICIAN: Mandeep Houser DO Sandra is a patient I am following with Dr. Marshall for history of colon polyps as well as upper GI complaints. Dr. Marshall performed upper and lower endoscopy on 12/05/21 at [facility]. The patient was found to have [...] which included preparing to see the patient, oxvi-rf-fkcn patient care, completing clinical documentation, obtaining and/or reviewing separately obtained history, counseling and educating the patient/family/caregiver, independently interpretin g results (not separately reported), and communicating results to the patient/family/caregiver. Sincere Perkins PA-C documented in this encounterCincinnati Children'[facility]07-28-2022 Miscellaneous Notes* Telephone Encounter - Rula Lopez RN - 12/08/2021 11:11 AM EDT Pt. notified. Please send refill for Losartan to [facility]. Thank you. Rula Lopez RN * Telephone Encounter - Rula Lopez RN - 12/08/2021 11:11 AM EDT Images from the original note were not included. Estelita Culp APRN.GEOPHYSICS SCIENTIST You; Santo Oneill MD 12 minutes ago [...] hears back from someone. documented in this encounterCincinnati Children'S [facility] Center07-25-2022 History and physical note * [...] a colonoscopy performed by Dr. Marshall in [place] for 04/04/21, however procedure was cancelled. Patient [...] patient was offered a surgery/procedure at a [facility] facility. I have counseled the [...] mail. Sincere Perkins PA-C documented in this encounterCincinnati Children'[facility]07-19-2022 Miscellaneous Notes* Telephone Encounter - [...] upper and lower scope with [facility] in [place] and is on miralax/dulcalax as her prep [...] Thank you Marie * Telephone Encounter - Sahnnon Hughes - 11/15/2021 11:33 AM EDT Patient has been added and moved up to 12/05 with [facility] in [place] for upper and lower scopes. LV of [...] 02/20/2022 colon egd ko documented in this encounterCincinnati Children'S [facility] Center07-19-2022 Miscellaneous Notes* Telephone Encounter - [...] stomach problems. Please advise. documented in this encounterCincinnati Children'S [facility] Center06-23-2022 History of Present illness Narrative* Vinita Flores Pss - 11/03/2021 3:26 PM EDT Patient seen by Elisha Perkins on 11/02 for consult. * Dejan Lorenzo - 11/01/2021 11:45 AM EDT Patient due for screening colonoscopy . Patient is not appropriate for open access. Please scheduleoffice consult Dejan Lorenzo documented in this encounterCincinnati [facility] of Present illness Narrative* [...] a colonoscopy performed by Dr. Marshall in [place] for 04/04/21, however procedure was cancelled. Patient [...] entered by the nurse and reviewed by vt Nursing Notes: Maritza Contreras LPN 11/02/2021 1:34 [...] patient was offered a surgery/procedure at a [facility] facility. I have counseled the [...] mail. Sincere Perkins PA-C documented in this encounterCincinnati [facility] Nurse Note* Maritza Contreras LPN [...] 2020 Maritza Contreras LPN documented in this encounterCincinnati [facility]06[facility] Miscellaneous Notes* Telephone Encounter - Estelita Hermosillo LPN - 10/27/2021 10:51 AM EDT I spoke to and informed her of Estelita's response to lab results. Patient voiced understanding. Estelita Hermosillo LPN * Telephone Encounter - Estelita Hermosillo LPN - 10/27/2021 10:50 AM EDT ----- Message from Estelita Culp APRN.GEOPHYSICS SCIENTIST sent at 10/27/2021 10:39 AM EDT ----- Please call patient and notify her of results. BMP and CBC stable. Thank you! documented in this encounterCincinnati [facility] History of Present illness Narrative* [...] 2021 TIME: 1:36 PM documented in this encounterCincinnati [facility] Miscellaneous Notes* Telephone Encounter - Kelsey Shannon RN - 10/24/2021 4:00 PM EDT Patient scheduled for left heart cath, with Dr Oneill on 11/10/21. Instructions reviewed. Questions answered. Patient verbalized understanding. Instructions were as follows: -Arrive to [facility] En[facility] at time assigned by [facility] geophysical laboratory supervisor staff in phone call 2-5 PM on [...] someone drive you home from your procedure. -geophysical laboratory supervisor policy is pt not be alone first evening Office phone number provided for questions or concerns. Kelsey Shannon RN * Telephone Encounter - Luzma Tejeda [facility] - 10/24/2021 1:33 PM EDT Schedule C on 11/10/[address] Oneill documented in this encounterCincinnati [facility] History of Present illness Narrative* [...] Dr Ragsdale after CT documented in this encounterCincinnati [facility]06[facility] Instructions* Patient Instructions* Alejandrina Harvey APRN.CNP - 10/19/2021 12:28 PM EDT Schedule your CT scan of your abdomen and pelvis. I'll get back with you in regards to the clearance for you colonoscopy. documented in this encounterCincinnati [facility]06[facility] History of Present illness Narrative* [...] PROCEDURE) Alejandrina Harvey APRN.TIM documented in this encounterCincinnati [facility]05[facility]11[facility] History of Present illness Narrative* [...] on chronic systolic CHF (congestive heart failure) ([facility]) 05/03/2020 Aspiration pneumonia ([facility]) 05/30/2020 Chest pain 05/03/2020 Chest pressure 01/23/2013 Chronic diastolic congestive heart failure ([facility]) 02/14/2021 Clostridium difficile diarrhea 09/28/2020 Complete uterovaginal prolapse Cystocele, midline Essential hypertension 06/14/2020 Homozygous Factor V Leiden mutation ([facility]) 05/03/2020 Hypothyroidism IBS (irritable [...] plan. See patient instructions. Mandeep Houser DO [address] [place] [address] documented in this encounterCincinnati [facility]05-09-2022 Miscellaneous Notes* Telephone Encounter - [...] Provider: ALEJANDRINA HARVEY APRN.CNP documented in this encounterCincinnati [facility]04[facility]22-2022 Miscellaneous Notes* Telephone Encounter - [...] appointment. Alejandrina Harvey APRN.CNP documented in this encounterCincinnati [facility]04-21-2022 Instructions* Patient Instructions* Alejandrina Harvey APRN.CNP - 09/01/2021 3:57 PM EDT Have your xrays completed. I typically have results in 24 hours or less. Have your lab work completed, fasting, when able. We typically have results in 1-2 days. documented in this encounter[address]21-2022 History of Present illness Narrative* Alejandrina Yasir, ATHLETIC SCOUT.GEOPHYSICS SCIENTIST - 09/01/2021 3:40 PM EDT Patient presents [...] on chronic systolic CHF (congestive heart failure) ([facility]) 05/03/2020 Aspiration pneumonia ([facility]) 05/30/2020 Chest pain 05/03/2020 Chest pressure 01/23/2013 Chronic diastolic congestive heart failure ([facility]) 02/14/2021 Clostridium difficile diarrhea 09/28/2020 Complete uterovaginal prolapse Cystocele, midline Essential hypertension 06/14/2020 Homozygous Factor V Leiden mutation ([facility]) 05/03/2020 Hypothyroidism IBS (irritable [...] ICD10: R79.9 - HGB A1C Alejandrina Harvey APRN.GEOPHYSICS SCIENTIST To ER if develops chest pain, shortness of breath, or severe worsening of symptoms. Discussed risks, benefits, alternatives, and potential side effects of medications. Patient expressed understanding and agreed with the plan. Alejandrina Harvey APRN.GEOPHYSICS SCIENTIST [address] [place] [address] documented in this encounterCincinnati [facility]04[facility]18-2022 Miscellaneous Notes* Telephone Encounter - Griselda Harris Ma - 08/29/2021 1:42 PM EDT Pt scheduled with RS to [facility] care Griselda Harris Ma * Telephone Encounter [...] if okay to schedule. documented in this encounterCincinnati [facility]04[facility]12-20[facility] History of Present illness Narrative* [...] 23, 2021 10:23 AM documented in this encounterCincinnati [facility]04-04-2022 Miscellaneous Notes* Letter - Mammography Coordinator - 08/15/2021 1:00 PM EDT August 15, 2021 PID: [id number] Sandra Schmitz [address] [place] [address] Dear Ms. Schmitz, We are pleased to [...] report will be kept on file at [facility] as part of your permanent medical record and are available for your continuing care. Thank you for allowing us to help in meeting your health care needs. Sincerely, Dr. Zendejas Interpreting Radiologist [facility] (Normal over 40) documented in this encounterCincinnati [facility]04[facility]04[facility]20[facility] History of Present illness Narrative* [...] PERIPHERAL IV DATA: Not applicable SIGNED BY: Lesetr Alvaradoo Marino August 15, 2021 9:50 AM documented in this encounterCincinnati [facility]03[facility]29[facility] History of Present illness Narrative* [...] treatment included: Therapeutic exercise, Manual therapy, Self- group home management and Patient/Family/Caregiver Education. Pt. Reports reduced [...] 07/11/21 through 09/05/21 Goals updated on 08/09/2021. [place] in home exercise program. -- PARTIALLY MET [...] the elbow felt somewhat looser after the [facility] last visit but then returned back [...] and function . Patient education as noted. Self-Jail Management: 1: *advised pt. to avoid carrying [...] 30 Estelita Maradiaga PT documented in this encounterCincinnati [facility]08[facility] History of Present illness Narrative* [...] 05, 2021 10:18 AM documented in this encounterCincinnati [facility]03[facility] History of Present illness Narrative* [...] 02, 2020 12:14 PM documented in this encounterCincinnati [facility]01[facility]17[facility] History of Past illness Narrative* Problem Noted Date Resolved Date Aspiration pneumonia 05/30/2020 09/22/2020 Post-operative state 05/24/2020 06/14/2020 Shortness of breath 05/03/2020 06/14/2020 Chest pain 05/03/2020 06/14/2020 documented as of this encounter (statuses as of 08/09/2021) [address]17-2021 History of Past illness Narrative* Problem Noted Date Resolved Date Aspiration pneumonia 05/30/2020 09/22/2020 Post-operative state 05/24/2020 06/14/2020 Shortness of breath 05/03/2020 06/14/2020 Chest pain 05/03/2020 06/14/2020 documented as of this encounter (statuses as of 08/16/2021) [address]17-2021 History of Past illness Narrative* Problem Noted Date Resolved Date Aspiration pneumonia 05/30/2020 09/22/2020 Post-operative state 05/24/2020 06/14/2020 Shortness of breath 05/03/2020 06/14/2020 Chest pain 05/03/2020 06/14/2020 documented as of this encounter (statuses as of 08/17/2021) [address]17-2021 History of Past illness Narrative* Problem Noted Date Resolved Date Aspiration pneumonia 05/30/2020 09/22/2020 Post-operative state 05/24/2020 06/14/2020 Shortness of breath 05/03/2020 06/14/2020 Chest pain 05/03/2020 06/14/2020 documented as of this encounter (statuses as of 08/23/2021) [address]17-2021 History of Past illness Narrative* Problem Noted Date Resolved Date Aspiration pneumonia 05/30/2020 09/22/2020 Post-operative state 05/24/2020 06/14/2020 Shortness of breath 05/03/2020 06/14/2020 Chest pain 05/03/2020 06/14/2020 documented as of this encounter (statuses as of 09/02/2021) [address]17-2021 History of Past illness Narrative* Problem Noted Date Resolved Date Aspiration pneumonia 05/30/2020 09/22/2020 Post-operative state 05/24/2020 06/14/2020 Shortness of breath 05/03/2020 06/14/2020 Chest pain 05/03/2020 06/14/2020 documented as of this encounter (statuses as of 09/07/2021) [address]17-2021 History of Past illness Narrative* Problem Noted Date Resolved Date Aspiration pneumonia 05/30/2020 09/22/2020 Post-operative state 05/24/2020 06/14/2020 Shortness of breath 05/03/2020 06/14/2020 Chest pain 05/03/2020 06/14/2020 documented as of this encounter (statuses as of 09/19/2021) [address]17-2021 History of Past illness Narrative* Problem Noted Date Resolved Date Aspiration pneumonia 05/30/2020 09/22/2020 Post-operative state 05/24/2020 06/14/2020 Shortness of breath 05/03/2020 06/14/2020 Chest pain 05/03/2020 06/14/2020 documented as of this encounter (statuses as of 09/21/2021) [address]17-2021 History of Past illness Narrative* Problem Noted Date Resolved Date Aspiration pneumonia 05/30/2020 09/22/2020 Post-operative state 05/24/2020 06/14/2020 Shortness of breath 05/03/2020 06/14/2020 Chest pain 05/03/2020 06/14/2020 documented as of this encounter (statuses as of 09/29/2021) [address]17-2021 History of Past illness Narrative* Problem Noted Date Resolved Date Aspiration pneumonia 05/30/2020 09/22/2020 Post-operative state 05/24/2020 06/14/2020 Shortness of breath 05/03/2020 06/14/2020 Chest pain 05/03/2020 06/14/2020 documented as of this encounter (statuses as of 10/20/2021) [address]17-2021 History of Past illness Narrative* Problem Noted Date Resolved Date Aspiration pneumonia 05/30/2020 09/22/2020 Post-operative state 05/24/2020 06/14/2020 Shortness of breath 05/03/2020 06/14/2020 Chest pain 05/03/2020 06/14/2020 documented as of this encounter (statuses as of 10/24/2021) [address]17-2021 History of Past illness Narrative* Problem Noted Date Resolved Date Aspiration pneumonia 05/30/2020 09/22/2020 Post-operative state 05/24/2020 06/14/2020 Shortness of breath 05/03/2020 06/14/2020 Chest pain 05/03/2020 06/14/2020 documented as of this encounter (statuses as of 10/27/2021) [address]17-2021 History of Past illness Narrative* Problem Noted Date Resolved Date Aspiration pneumonia 05/30/2020 09/22/2020 Post-operative state 05/24/2020 06/14/2020 Shortness of breath 05/03/2020 06/14/2020 Chest pain 05/03/2020 06/14/2020 documented as of this encounter (statuses as of 10/28/2021) [address]17-2021 History of Past illness Narrative* Problem Noted Date Resolved Date Aspiration pneumonia 05/30/2020 09/22/2020 Post-operative state 05/24/2020 06/14/2020 Shortness of breath 05/03/2020 06/14/2020 Chest pain 05/03/2020 06/14/2020 documented as of this encounter (statuses as of 11/03/2021) [address]17-2021 History of Past illness Narrative* Problem Noted Date Resolved Date Aspiration pneumonia 05/30/2020 09/22/2020 Post-operative state 05/24/2020 06/14/2020 Shortness of breath 05/03/2020 06/14/2020 Chest pain 05/03/2020 06/14/2020 documented as of this encounter (statuses as of 11/03/2021) [address]17-2021 History of Past illness Narrative* Problem Noted Date Resolved Date Aspiration pneumonia 05/30/2020 09/22/2020 Post-operative state 05/24/2020 06/14/2020 Shortness of breath 05/03/2020 06/14/2020 Chest pain 05/03/2020 06/14/2020 documented as of this encounter (statuses as of 11/10/2021) [address]17-2021 History of Past illness Narrative* Problem Noted Date Resolved Date Aspiration pneumonia 05/30/2020 09/22/2020 Post-operative state 05/24/2020 06/14/2020 Shortness of breath 05/03/2020 06/14/2020 Chest pain 05/03/2020 06/14/2020 documented as of this encounter (statuses as of 11/29/2021) [address]17-2021 History of Past illness Narrative* Problem Noted Date Resolved Date Aspiration pneumonia 05/30/2020 09/22/2020 Post-operative state 05/24/2020 06/14/2020 Shortness of breath 05/03/2020 06/14/2020 Chest pain 05/03/2020 06/14/2020 documented as of this encounter (statuses as of 12/06/2021) [address]17-2021 History of Past illness Narrative* Problem Noted Date Resolved Date Aspiration pneumonia 05/30/2020 09/22/2020 Post-operative state 05/24/2020 06/14/2020 Shortness of breath 05/03/2020 06/14/2020 Chest pain 05/03/2020 06/14/2020 documented as of this encounter (statuses as of 12/08/2021) [address]17-2021 History of Past illness Narrative* Problem Noted Date Resolved Date Aspiration pneumonia 05/30/2020 09/22/2020 Post-operative state 05/24/2020 06/14/2020 Shortness of breath 05/03/2020 06/14/2020 Chest pain 05/03/2020 06/14/2020 documented as of this encounter (statuses as of 12/27/2021) [address]17-2021 History of Past illness Narrative* Problem Noted Date Resolved Date Aspiration pneumonia 05/30/2020 09/22/2020 Post-operative state 05/24/2020 06/14/2020 Shortness of breath 05/03/2020 06/14/2020 Chest pain 05/03/2020 06/14/2020 documented as of this encounter (statuses as of 12/27/2021) [address]17-2021 History of Past illness Narrative* Problem Noted Date Resolved Date Aspiration pneumonia 05/30/2020 09/22/2020 Post-operative state 05/24/2020 06/14/2020 Shortness of breath 05/03/2020 06/14/2020 Chest pain 05/03/2020 06/14/2020 documented as of this encounter (statuses as of 01/19/2022) [address]17-2021 History of Past illness Narrative* Problem Noted Date Resolved Date Aspiration pneumonia 05/30/2020 09/22/2020 Post-operative state 05/24/2020 06/14/2020 Shortness of breath 05/03/2020 06/14/2020 Chest pain 05/03/2020 06/14/2020 documented as of this encounter (statuses as of 01/19/2022) [address]17-2021 History of Past illness Narrative* Problem Noted Date Resolved Date Aspiration pneumonia 05/30/2020 09/22/2020 Post-operative state 05/24/2020 06/14/2020 Shortness of breath 05/03/2020 06/14/2020 Chest pain 05/03/2020 06/14/2020 documented as of this encounter (statuses as of 01/20/2022) [address]17-2021 History of Past illness Narrative* Problem Noted Date Resolved Date Aspiration pneumonia 05/30/2020 09/22/2020 Post-operative state 05/24/2020 06/14/2020 Shortness of breath 05/03/2020 06/14/2020 Chest pain 05/03/2020 06/14/2020 documented as of this encounter (statuses as of 02/13/2022) [address]17-2021 History of Past illness Narrative* Problem Noted Date Resolved Date Aspiration pneumonia 05/30/2020 09/22/2020 Post-operative state 05/24/2020 06/14/2020 Shortness of breath 05/03/2020 06/14/2020 Chest pain 05/03/2020 06/14/2020 documented as of this encounter (statuses as of 03/10/2022) [address]17-2021 History of Past illness Narrative* Problem Noted Date Resolved Date Aspiration pneumonia 05/30/2020 09/22/2020 Post-operative state 05/24/2020 06/14/2020 Shortness of breath 05/03/2020 06/14/2020 Chest pain 05/03/2020 06/14/2020 documented as of this encounter (statuses as of 03/13/2022) [address]17-2021 History of Past illness Narrative* Problem Noted Date Resolved Date Aspiration pneumonia 05/30/2020 09/22/2020 Post-operative state 05/24/2020 06/14/2020 Shortness of breath 05/03/2020 06/14/2020 Chest pain 05/03/2020 06/14/2020 documented as of this encounter (statuses as of 03/31/2022) [address]17-2021 History of Past illness Narrative* Problem Noted Date Resolved Date Aspiration pneumonia 05/30/2020 09/22/2020 Post-operative state 05/24/2020 06/14/2020 Shortness of breath 05/03/2020 06/14/2020 Chest pain 05/03/2020 06/14/2020 documented as of this encounter (statuses as of 04/05/2022) [facility] History of Past illness Narrative* Problem Noted Date Resolved Date Aspiration pneumonia 05/30/2020 09/22/2020 Post-operative state 05/24/2020 06/14/2020 Shortness of breath 05/03/2020 06/14/2020 Chest pain 05/03/2020 06/14/2020 documented as of this encounter (statuses as of 05/03/2022) [facility] History of Past illness Narrative* Problem Noted Date Resolved Date Aspiration pneumonia 05/30/2020 09/22/2020 Post-operative state 05/24/2020 06/14/2020 Shortness of breath 05/03/2020 06/14/2020 Chest pain 05/03/2020 06/14/2020 documented as of this encounter (statuses as of 05/18/2022) [address]17-2021 History of Past illness Narrative* Problem Noted Date Resolved Date Aspiration pneumonia 05/30/2020 09/22/2020 Post-operative state 05/24/2020 06/14/2020 Shortness of breath 05/03/2020 06/14/2020 Chest pain 05/03/2020 06/14/2020 documented as of this encounter (statuses as of 07/12/2022) [facility] History of Past illness Narrative* Problem Noted Date Resolved Date Aspiration pneumonia 05/30/2020 09/22/2020 Post-operative state 05/24/2020 06/14/2020 Shortness of breath 05/03/2020 06/14/2020 Chest pain 05/03/2020 06/14/2020 documented as of this encounter (statuses as of 07/18/2022) [facility] History of Past illness Narrative* Problem Noted Date Resolved Date Aspiration pneumonia 05/30/2020 09/22/2020 Post-operative state 05/24/2020 06/14/2020 Shortness of breath 05/03/2020 06/14/2020 Chest pain 05/03/2020 06/14/2020 documented as of this encounter (statuses as of 07/25/2022) [address]17-2021 History of Past illness Narrative* Problem Noted Date Resolved Date Aspiration pneumonia 05/30/2020 09/22/2020 Post-operative state 05/24/2020 06/14/2020 Shortness of breath 05/03/2020 06/14/2020 Chest pain 05/03/2020 06/14/2020 documented as of this encounter (statuses as of 07/27/2022) [address]17-2021 History of Past illness Narrative* Problem Noted Date Resolved Date Aspiration pneumonia 05/30/2020 09/22/2020 Post-operative state 05/24/2020 06/14/2020 Shortness of breath 05/03/2020 06/14/2020 Chest pain 05/03/2020 06/14/2020 documented as of this encounter (statuses as of 08/03/2022) [place] [address]-17-2021 History of Past illness Narrative* Problem Noted Date Resolved Date Aspiration pneumonia 05/30/2020 09/22/2020 Post-operative state 05/24/2020 06/14/2020 Shortness of breath 05/03/2020 06/14/2020 Chest pain 05/03/2020 06/14/2020 documented as of this encounter (statuses as of 08/10/2022) [address]17-2021 History of Past illness Narrative* Problem Noted Date Resolved Date Aspiration pneumonia 05/30/2020 09/22/2020 Post-operative state 05/24/2020 06/14/2020 Shortness of breath 05/03/2020 06/14/2020 Chest pain 05/03/2020 06/14/2020 documented as of this encounter (statuses as of 08/10/2022) [address]17-2021 History of Past illness Narrative* Problem Noted Date Resolved Date Aspiration pneumonia 05/30/2020 09/22/2020 Post-operative state 05/24/2020 06/14/2020 Shortness of breath 05/03/2020 06/14/2020 Chest pain 05/03/2020 06/14/2020 documented as of this encounter (statuses as of 08/14/2022) [facility] of Past illness Narrative* Problem Noted Date Resolved Date Aspiration pneumonia 05/30/2020 09/22/2020 Post-operative state 05/24/2020 06/14/2020 Shortness of breath 05/03/2020 06/14/2020 Chest pain 05/03/2020 06/14/2020 documented as of this encounter (statuses as of 08/25/2022) [address]17-2021 History of Past illness Narrative* Problem Noted Date Resolved Date Aspiration pneumonia 05/30/2020 09/22/2020 Post-operative state 05/24/2020 06/14/2020 Shortness of breath 05/03/2020 06/14/2020 Chest pain 05/03/2020 06/14/2020 documented as of this encounter (statuses as of 09/11/2022) [facility] History of Past illness Narrative* Problem Noted Date Resolved Date Aspiration pneumonia 05/30/2020 09/22/2020 Post-operative state 05/24/2020 06/14/2020 Shortness of breath 05/03/2020 06/14/2020 Chest pain 05/03/2020 06/14/2020 documented as of this encounter (statuses as of 09/22/2022) [address]17-2021 History of Past illness Narrative* Problem Noted Date Resolved Date Aspiration pneumonia 05/30/2020 09/22/2020 Post-operative state 05/24/2020 06/14/2020 Shortness of breath 05/03/2020 06/14/2020 Chest pain 05/03/2020 06/14/2020 documented as of this encounter (statuses as of 10/12/2022) [facility] History of Past illness Narrative* Problem Noted Date Resolved Date Aspiration pneumonia 05/30/2020 09/22/2020 Post-operative state 05/24/2020 06/14/2020 Shortness of breath 05/03/2020 06/14/2020 Chest pain 05/03/2020 06/14/2020 documented as of this encounter (statuses as of 10/14/2022) [facility] History of Past illness Narrative* Problem Noted Date Resolved Date Aspiration pneumonia 05/30/2020 09/22/2020 Post-operative state 05/24/2020 06/14/2020 Shortness of breath 05/03/2020 06/14/2020 Chest pain 05/03/2020 06/14/2020 documented as of this encounter (statuses as of 10/15/2022) [facility] History of Past illness Narrative* Problem Noted Date Resolved Date Aspiration pneumonia 05/30/2020 09/22/2020 Post-operative state 05/24/2020 06/14/2020 Shortness of breath 05/03/2020 06/14/2020 Chest pain 05/03/2020 06/14/2020 documented as of this encounter (statuses as of 10/30/2022) [facility] History of Past illness Narrative* Problem Noted Date Diagnosed Date Resolved Date Aspiration pneumonia 05/30/2020 021 Post-operative state 05/24/2020 021 Shortness of breath 05/03/2020 06/14/19 21 Chest pain 05/03/2020 06/14/2020 documented as of this encounter (statuses as of 12/19/2022) [facility] of Past illness Narrative* Problem Noted Date Diagnosed Date Resolved Date Aspiration pneumonia 05/30/2020 021 Post-operative state 05/24/2020 021 Shortness of breath 05/03/2020 06/14/19 21 Chest pain 05/03/2020 06/14/2020 documented as of this encounter (statuses as of 01/10/2023) [address]17-2021 History of Past illness Narrative* Problem Noted Date Diagnosed Date Resolved Date Aspiration pneumonia 05/30/2020 021 Post-operative state 05/24/2020 021 Shortness of breath 05/03/2020 06/14/19 21 Chest pain 05/03/2020 06/14/2020 documented as of this encounter (statuses as of 01/10/2023) [facility] History of Past illness Narrative* Problem Noted Date Diagnosed Date Resolved Date Aspiration pneumonia 05/30/2020 021 Post-operative state 05/24/2020 021 Shortness of breath 05/03/2020 06/14/19 21 Chest pain 05/03/2020 06/14/2020 documented as of this encounter (statuses as of 01/12/2023) [facility] History of Past illness Narrative* Problem Noted Date Diagnosed Date Resolved Date Aspiration pneumonia 05/30/2020 021 Post-operative state 05/24/2020 021 Shortness of breath 05/03/2020 06/14/19 21 Chest pain 05/03/2020 06/14/2020 documented as of this encounter (statuses as of 02/21/2023) [facility] History of Past illness Narrative* Problem Noted Date Diagnosed Date Resolved Date Aspiration pneumonia 05/30/2020 021 Post-operative state 05/24/2020 021 Shortness of breath 05/03/2020 06/14/19 21 Chest pain 05/03/2020 06/14/2020 documented as of this encounter (statuses as of 03/18/2023) [facility]21 History of Past illness Narrative* Problem Noted Date Diagnosed Date Resolved Date Aspiration pneumonia 05/30/2020 021 Post-operative state 05/24/2020 021 Shortness of breath 05/03/2020 06/14/19 21 Chest pain 05/03/2020 06/14/2020 documented as of this encounter (statuses as of 03/18/2023) [facility]2021 History of Past illness Narrative* Problem Noted Date Diagnosed Date Resolved Date Aspiration pneumonia 05/30/2020 021 Post-operative state 05/24/2020 021 Shortness of breath 05/03/2020 06/14/19 21 Chest pain 05/03/2020 06/14/2020 documented as of this encounter (statuses as of 03/18/2023) [facility]2021 History of Past illness Narrative* Problem Noted Date Diagnosed Date Resolved Date Aspiration pneumonia 05/30/2020 021 Post-operative state 05/24/2020 021 Shortness of breath 05/03/2020 06/14/19 21 Chest pain 05/03/2020 06/14/2020 documented as of this encounter (statuses as of 03/18/2023) [facility]21 History of Past illness Narrative* Problem Noted Date Diagnosed Date Resolved Date Aspiration pneumonia 05/30/2020 021 Post-operative state 05/24/2020 021 Shortness of breath 05/03/2020 06/14/19 21 Chest pain 05/03/2020 06/14/2020 documented as of this encounter (statuses as of 03/20/2023) [facility]21 History of Past illness Narrative* Problem Noted Date Diagnosed Date Resolved Date Aspiration pneumonia 05/30/2020 021 Post-operative state 05/24/2020 021 Shortness of breath 05/03/2020 06/14/19 21 Chest pain 05/03/2020 06/14/2020 documented as of this encounter (statuses as of 04/10/2023) [facility] History of Past illness Narrative* Problem Noted Date Diagnosed Date Resolved Date Aspiration pneumonia 05/30/2020 021 Post-operative state 05/24/2020 021 Shortness of breath 05/03/2020 06/14/19 21 Chest pain 05/03/2020 06/14/2020 documented as of this encounter (statuses as of 04/25/2023) [facility] History of Past illness Narrative* Problem Noted Date Diagnosed Date Resolved Date Aspiration pneumonia 05/30/2020 021 Post-operative state 05/24/2020 021 Shortness of breath 05/03/2020 06/14/19 21 Chest pain 05/03/2020 06/14/2020 documented as of this encounter (statuses as of 04/27/2023) [facility] History of Past illness Narrative* Problem Noted Date Diagnosed Date Resolved Date Aspiration pneumonia 05/30/2020 021 Post-operative state 05/24/2020 021 Shortness of breath 05/03/2020 06/14/19 21 Chest pain 05/03/2020 06/14/2020 documented as of this encounter (statuses as of 07/13/2023) [facility] History of Past illness Narrative* Problem Noted Date Diagnosed Date Resolved Date Aspiration pneumonia 05/30/2020 021 Post-operative state 05/24/2020 021 Shortness of breath 05/03/2020 06/14/19 21 Chest pain 05/03/2020 06/14/2020 documented as of this encounter (statuses as of 07/20/2023) [facility] History of Past illness Narrative* Problem Noted Date Diagnosed Date Resolved Date Aspiration pneumonia 05/30/2020 021 Post-operative state 05/24/2020 021 Shortness of breath 05/03/2020 06/14/19 21 Chest pain 05/03/2020 06/14/2020 documented as of this encounter (statuses as of 07/25/2023) [facility] History of Past illness Narrative* Problem Noted Date Diagnosed Date Resolved Date Aspiration pneumonia 05/30/2020 021 Post-operative state 05/24/2020 021 Shortness of breath 05/03/2020 06/14/19 21 Chest pain 05/03/2020 06/14/2020 documented as of this encounter (statuses as of 07/25/2023) [address]17-2021 History of Past illness Narrative* Problem Noted Date Diagnosed Date Resolved Date Aspiration pneumonia 05/30/2020 021 Post-operative state 05/24/2020 021 Shortness of breath 05/03/2020 06/14/19 21 Chest pain 05/03/2020 06/14/2020 documented as of this encounter (statuses as of 07/26/2023) [address]17-2021 History of Past illness Narrative* Problem Noted Date Diagnosed Date Resolved Date Aspiration pneumonia 05/30/2020 021 Post-operative state 05/24/2020 021 Shortness of breath 05/03/2020 06/14/19 21 Chest pain 05/03/2020 06/14/2020 documented as of this encounter (statuses as of 07/28/2023) [facility] History of Past illness Narrative* Problem Noted Date Diagnosed Date Resolved Date Aspiration pneumonia 05/30/2020 021 Post-operative state 05/24/2020 021 Shortness of breath 05/03/2020 06/14/19 21 Chest pain 05/03/2020 06/14/2020 documented as of this encounter (statuses as of 08/06/2023) [facility]21 History of Past illness Narrative* Problem Noted Date Diagnosed Date Resolved Date Aspiration pneumonia 05/30/2020 021 Post-operative state 05/24/2020 021 Shortness of breath 05/03/2020 06/14/19 21 Chest pain 05/03/2020 06/14/2020 documented as of this encounter (statuses as of 08/07/2023) [facility]21 History of Past illness Narrative* Problem Noted Date Diagnosed Date Resolved Date Aspiration pneumonia 05/30/2020 021 Post-operative state 05/24/2020 021 Shortness of breath 05/03/2020 06/14/19 21 Chest pain 05/03/2020 06/14/2020 documented as of this encounter (statuses as of 08/08/2023) [address]17-2021 History of Past illness Narrative* Problem Noted Date Diagnosed Date Resolved Date Aspiration pneumonia 05/30/2020 021 Post-operative state 05/24/2020 021 Shortness of breath 05/03/2020 06/14/19 21 Chest pain 05/03/2020 06/14/2020 documented as of this encounter (statuses as of 08/23/2023) [facility]21 History of Past illness Narrative* Problem Noted Date Diagnosed Date Resolved Date Aspiration pneumonia 05/30/2020 021 Post-operative state 05/24/2020 021 Shortness of breath 05/03/2020 06/14/19 21 Chest pain 05/03/2020 06/14/2020 documented as of this encounter (statuses as of 08/24/2023) [facility]2021 History of Past illness Narrative* Problem Noted Date Diagnosed Date Resolved Date Aspiration pneumonia 05/30/2020 021 Post-operative state 05/24/2020 021 Shortness of breath 05/03/2020 06/14/19 21 Chest pain 05/03/2020 06/14/2020 documented as of this encounter (statuses as of 08/28/2023) [facility]12-15-2020 History of Present illness Narrative* [...] STATUS: Discontinued PROCEDURE TYPE: NM Stress: 13.0mCi [id number] was administered IV for Rest Imaging at [address] by [facility]. 35.8 mCi [id number] was administered IV for Stress Imaging at [...] 1:10 PM PAGER/CONTACT #: [facility]* Diagnosis Left shoulder pain, unspecified chronicity Lateral epicondylitis of left elbow Lateral epicondylitis of elbow [facility] Diagnosis Encounter for screening mammogram for breast cancer [facility] Diagnosis Chronic left shoulder pain- Primary [...] blood chemistry, unspecified documented in this encounter [facility] note* Diagnosis Hypothyroidism, unspecified type- Primary documented in this encounter [facility] note* Diagnosis Rib pain- Primary Chest pain, unspecified Somatic dysfunction of head region Somatic dysfunction of spine, cervical Nonallopathic lesion of cervical region, not elsewhere classified Somatic dysfunction of rib Somatic dysfunction of spine, thoracic Nonallopathic lesion of thoracic region, not elsewhere classified Neck pain Cervicalgia documented in this encounter [facility] note* Diagnosis Diverticulitis- Primary Diverticulitis of colon (without mention of hemorrhage) RLQ abdominal pain Abdominal pain, right lower quadrant Lower abdominal pain Abdominal pain, other specified site documented in this encounter [facility] note* Diagnosis Diverticulitis Diverticulitis of colon (without mention of hemorrhage) RLQ abdominal pain Abdominal pain, right lower quadrant Lower abdominal pain Abdominal pain, other specified site Stable angina (HCC) Other and unspecified angina pectoris Cardiomyopathy, unspecified type (HCC) Dyspnea on exertion Other dyspnea and respiratory abnormality documented in this encounter [facility] note* Diagnosis Generalized abdominal pain- Primary Abdominal [...] and respiratory abnormality documented in this encounter [facility] note* Diagnosis Chronic systolic CHF (congestive heart failure) (HCC)- Primary Chronic systolic heart failure documented in this encounter [facility] note* Diagnosis Abdominal bloating Flatulence, eructation, and gas pain Belching Flatulence, eructation, and gas pain Abdominal pain, unspecified abdominal location documented in this encounter [facility] note* Diagnosis Diverticulosis- Primary Diverticulosis of colon (without mention of hemorrhage) History of Clostridium difficile colitis Personal history of other diseases of digestive system Abdominal bloating Flatulence, eructation, and gas pain documented in this encounter [facility] note* Diagnosis Hypothyroidism, unspecified type documented in this encounter [facility] note* Diagnosis Abdominal bloating- Primary Flatulence, eructation, and gas pain Belching Flatulence, eructation, and gas pain Abdominal pain, unspecified abdominal location [facility] Routine physical examination- Primary Routine general medical examination at a health care facility Primary hypertension Unspecified essential hypertension Mixed hyperlipidemia 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 with other form of angina pectoris (HCC) Vitamin D deficiency Unspecified vitamin D deficiency Hypothyroidism, unspecified type [facility] Diagnosis Cardiomegaly- Primary Primary hypertension Unspecified essential hypertension Chronic diastolic congestive heart failure (HCC) Chronic diastolic heart failure Palpitations Acute on chronic systolic CHF (congestive heart failure) (HCC) Acute on chronic systolic heart failure [facility] Diagnosis Rib pain on right side- Primary Chest pain, unspecified Somatic dysfunction of spine, cervical Nonallopathic lesion of cervical region, not elsewhere classified Somatic dysfunction of rib Somatic dysfunction of spine, thoracic Nonallopathic lesion of thoracic region, not elsewhere classified [facility] Diagnosis Chronic right-sided thoracic back pain- Primary Somatic dysfunction of spine, cervical Nonallopathic lesion of cervical region, not elsewhere classified Somatic dysfunction of spine, thoracic Nonallopathic lesion of thoracic region, not elsewhere classified Somatic dysfunction of rib Rib pain on right side Chest pain, unspecified [facility] Diagnosis Hypothyroidism, unspecified type- Primary [...] screening for osteoporosis [facility]* Diagnosis Hypothyroidism, unspecified type [facility]* Diagnosis Chronic bilateral thoracic back [...] Palpitations Mixed hyperlipidemia [facility]* Diagnosis Dysuria- Primary Urticaria Urticaria, [...] Palpitations Mixed hyperlipidemia [facility] Diagnosis Primary hypertension- Primary Unspecified essential hypertension Palpitations Mixed hyperlipidemia [facility]* Diagnosis Chronic neck pain- Primary Cervicalgia Abdominal distension (gaseous) Flatulence, eructation, and gas pain Nausea Nausea alone RUQ abdominal pain Abdominal pain, right upper quadrant Somatic dysfunction of spine, cervical Nonallopathic lesion of cervical region, not elsewhere classified Somatic dysfunction of rib Somatic dysfunction of head region [facility] Diagnosis Chronic bilateral thoracic back pain- Primary Somatic dysfunction of spine, cervical Nonallopathic lesion of cervical region, not elsewhere classified Somatic dysfunction of rib Somatic dysfunction of head region Chronic neck pain Cervicalgia Somatic dysfunction of spine, thoracic Nonallopathic lesion of thoracic region, not elsewhere classified [facility] Diagnosis Acute cough- Primary Sore throat Acute pharyngitis [facility] Diagnosis Primary hypertension Unspecified essential hypertension [facility] Diagnosis Hypothyroidism, unspecified type- Primary Somatic dysfunction of spine, cervical Nonallopathic lesion of cervical region, not elsewhere classified Somatic dysfunction of rib Somatic dysfunction of head region Chronic bilateral thoracic back pain Chronic neck pain Cervicalgia Neck fullness Swelling, mass, or lump in head and neck documented [facility] this [facility]* Diagnosis Hypothyroidism, unspecified type [facility]* Diagnosis Screening for osteoporosis Special screening for osteoporosis Asymptomatic menopause [facility]* Diagnosis SOB (shortness of breath) Shortness of breath [facility] Diagnosis Abnormal electrocardiogram Nonspecific abnormal electrocardiogram (ECG) (EKG) LBBB (left bundle branch block) Other left bundle branch block [facility]* Diagnosis Abdominal distension (gaseous) Flatulence, eructation, and gas pain Nausea Nausea alone RUQ abdominal pain Abdominal pain, right upper quadrant [facility] Diagnosis Primary hypertension Unspecified essential hypertension Chronic diastolic congestive heart failure (HCC) Chronic diastolic heart failure [facility] Diagnosis Chronic diastolic congestive heart failure [...] Primary hypercoagulable state [facility]* Diagnosis LBBB (left bundle branch block)- Primary Other left bundle branch block Presence of cardiac resynchronization therapy defibrillator ([employer]-D) Acute on chronic systolic CHF (congestive heart failure) (HCC) Acute on chronic systolic heart failure [facility] Diagnosis Vagina, candidiasis- Primary Candidiasis of vulva and vagina Burning with urination Dysuria 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 Acute cough Laryngopharyngeal reflux (LPR) Other diseases of larynx [facility] Diagnosis Chronic systolic congestive heart failure (HCC)- Primary Chronic systolic heart failure Nonischemic cardiomyopathy (HCC) Other primary cardiomyopathies Mixed hyperlipidemia LBBB (left bundle branch block) Other left bundle branch block Presence of cardiac resynchronization therapy defibrillator ([employer]-D) Primary hypertension Unspecified essential hypertension 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 Valvular heart disease Endocarditis, valve unspecified, unspecified cause [facility] noteNo assessment information availableWTuscarawas Hospital Work Phone: Evaluation note* Diagnosis Foot pain, left- Primary Pain in limb Localized swelling of left foot Foot pain, left Pain in limb Localized swelling of left foot [facility]* Diagnosis Repetitive stress injury- Primary Unspecified site of sprain and strain Venous insufficiency Unspecified venous (peripheral) insufficiency [facility] Diagnosis Repetitive stress injury Unspecified site of sprain and strain [facility]* Diagnosis Acute on chronic [...] of left foot [facility]* Diagnosis Hypothyroidism, acquired- Primary Unspecified [...] Diagnosis Presence of cardiac resynchronization therapy defibrillator ([employer]-D)- Primary Non-ischemic cardiomyopathy (HCC) Other primary cardiomyopathies [...] not elsewhere classified [facility] Diagnosis Pre-op evaluation- Primary Preoperative examination, [...] not elsewhere classified [facility] Diagnosis Pre-op evaluation- Primary Preoperative examination, [...] of left foot [facility] Diagnosis Pre-op evaluation- Primary Preoperative examination, [...] Chronic cough Cough documented in this encounter [facility] note* Diagnosis Pre-op evaluation- Primary Preoperative examination, [...] of head region [facility] Diagnosis Pre-op evaluation- Primary Preoperative examination, [...] Other primary cardiomyopathies documented in this encounter [facility] note* Diagnosis Pre-op evaluation- Primary Preoperative examination, [...] joint, upper arm documented in this encounter [facility] note* Diagnosis Pre-op evaluation- Primary Preoperative examination, [...] of head region [facility] Diagnosis Pre-op evaluation- Primary Preoperative examination, [...] 30-34.9 Obesity, unspecified [facility] Diagnosis Great toe pain, left Pre-op [...] 30-34.9 Obesity, unspecified [facility] Diagnosis Pre-op evaluation- Primary Preoperative examination, [...] bundle branch block 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 [facility]* Diagnosis Pre-op evaluation- Primary Preoperative examination, [...] not elsewhere classified [facility] Diagnosis Pre-op evaluation- Primary [...] not elsewhere classified [facility] Diagnosis Pre-op evaluation- Primary Preoperative examination, [...] of head region [facility] Diagnosis Pre-op evaluation- Primary Preoperative examination, [...] not elsewhere classified [facility] Diagnosis Pre-op evaluation- Primary Preoperative examination, [...] Other primary cardiomyopathies [facility] Diagnosis Pre-op evaluation- Primary Preoperative examination, [...] unspecified Acute cough [facility] Diagnosis Pre-op evaluation- Primary Preoperative examination, [...] vitamin D deficiency [facility] Diagnosis Pre-op evaluation- Primary Preoperative examination, [...] not elsewhere classified [facility] Diagnosis Pre-op evaluation- Primary [...] of cardiac pacemaker documented in this encounter [facility] note* Diagnosis Pre-op evaluation- Primary Preoperative examination, [...] of cardiac pacemaker [facility] Diagnosis Pre-op evaluation- Primary Preoperative examination, [...] 30-34.9 Obesity, unspecified Cardiac resynchronization therapy defibrillator ([employer]GER-D) in place- Primary documented in this encounter [facility] note* Diagnosis Pre-op evaluation- Primary Preoperative examination, [...] 30-34.9 Obesity, unspecified Cardiac resynchronization therapy defibrillator ([employer] C[employer] MANAGER-D) in place- Primary Chronic HFrEF (heart failure with reduced ejection fraction) (HCC) Medication management Encounter for long-term (current) use of other medications documented in this encounter [facility] note* Diagnosis Pre-op evaluation- Primary Preoperative examination, [...] Other primary cardiomyopathies 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 Left bundle branch block Other left bundle branch block Cardiac resynchronization therapy defibrillator ([employer] CENTER MANAGER-D) in place documented in this encounter [facility] Discharge instructionsAdditional Instructions Use incentive spirometer 5 [...] of any fluid is an option for this.[facility] Work Phone: Reason for referral (narrative)* Diagnostic Procedure Only (Routine) - Closed Specialty Diagnoses / Procedures Referred By Crissy kelley Referred To Contact [facility] Diagnoses Encounter for screening mammogram for breast cancer Procedures KARTHIK SCREENING SCREENING MAMMOGRAPHY BI 2-VIEW BREAST INC CAD Maycol Valladares MD [address] [place] [address] [facility] [address] [place] [address] Referral ID Status Reason Start Date Expiration Date V isits Requested Visits Authorized [id number] Closed Auto-Generate d Referral 07/01/2021 07/31/2022 1 1 [facility] for referral (narrative)* Diagnostic Procedure Only (Routine) - Closed Specialty Diagnoses / Procedures Referred By Crissy kelley Referred To Contact XR IMAGING Diagnoses Chronic left shoulder pain Left elbow pain Procedures XR SHOULDER LIMITED 2V AP/TRUE AP LEFT RADEX SHOULDER COMPLETE MINIMUM 2 VIEWS Alejandrina Harvey APRN.GEOPHYSICS SCIENTIST [address] [place] [address] Xr Imaging Referral ID Status Reason Start Date Expiration Date V isits Requested Visits Authorized [id number] Closed Auto-Generate d Referral 09/01/2021 10/01/2022 1 1 * Diagnostic Procedure Only (Routine) - Closed Specialty Diagnoses / Procedures Referred By Contac t Referred To Contact XR IMAGING Diagnoses Chronic left shoulder pain Left elbow pain Procedures XR ELBOW GENERAL 2V AP/LAT LEFT RADEX ELBOW 2 VIEWS Alejandrina Harvey APRN.CNP [address] [place] [address] Xr Imaging Referral ID Status Reason Start Date Expiration Date V isits Requested Visits Authorized [id number] Closed Auto-Generate d Referral 09/01/2021 10/01/2022 1 1 [facility] for referral (narrative)* Outpatient Procedure (Routine) - Closed Specialty Diagnoses / Procedures Referred By Contac t Referred To Contact [facility] Diagnoses Abdominal bloating Belching Abdominal pain, unspecified abdominal location Procedures EGD DIAGNOSTIC ESOPHAGOGASTRODUODENOSC OPY TRANSORAL DIAGNOSTIC Sincere Perkins PA-C [address] [place] [address] [facility] [address] [place] [address] Referral ID Status Reason Start Date Expiration Date V isits Requested Visits Authorized [id number] Closed Auto-Generate d Referral 11/02/2021 11/02/2022 1 1 * Outpatient Procedure (Routine) - Closed Specialty Diagnoses / Procedures Referred By Contac t Referred To Contact [facility] Diagnoses Abdominal bloating Belching Abdominal pain, unspecified abdominal location Procedures COLONOSCOPY DIAGNOSTIC COLONOSCOPY FLX DX W/COLLJ SPEC WHEN PFRMD Sincere Perkisn PA-C [address] [place] [address] [facility] [address] [place] [address] Referral ID Status Reason Start Date Expiration Date V isits Requested Visits Authorized [id number] Closed Auto-Generate d Referral 11/02/2021 11/02/2022 1 1 [facility] for referral (narrative)* Outpatient Procedure (Routine) - Closed Specialty Diagnoses / Procedures Referred By Contac t Referred To Contact [facility] Diagnoses Abdominal bloating Belching Abdominal pain, unspecified abdominal location Procedures EGD DIAGNOSTIC ESOPHAGOGASTRODUODENOSC OPY TRANSORAL DIAGNOSTIC Sincere Perkins PA-C [address] [place] [address] [address] Referral ID Status Reason Start Date Expiration Date V isits Requested Visits Authorized [id number] Closed Auto-Generate d Referral 11/02/2021 11/02/2022 1 1 * Outpatient Procedure (Routine) - Closed Specialty Diagnoses / Procedures Referred By Contac t Referred To Contact [facility] Diagnoses Abdominal bloating Belching Abdominal pain, unspecified abdominal location Procedures COLONOSCOPY DIAGNOSTIC COLONOSCOPY FLX DX W/COLLJ SPEC WHEN PFRMD Sincere Perkins PA-C [address] [place] [address] [address] Referral ID Status Reason Start Date Expiration Date V isits Requested Visits Authorized [id number] Closed Auto-Generate d Referral 11/02/2021 11/02/2022 1 1 [facility] for referral (narrative)* Outpatient Procedure (Routine) - Authorized Specialty Diagnoses / Procedures Referred By Contac t Referred To [facility] Diagnoses Cardiomegaly Procedures ECHO ECHO TTHRC R-T 2D W/WOM-MODE COMPL SPEC&COLR D Santo Oneill MD [address] [place] [address] [facility] [address] [place] [address] Referral ID Status Reason Start Date Expiration Date Visits Requested Visits Authorized [id number] Authorized Auto-Generat ed Referral 02/13/2023 1 1 [facility] for referral (narrative)* Outpatient Procedure (Routine) - Closed Specialty Diagnoses / Procedures Referred By Contac t Referred To Contact [facility] Diagnoses Primary hypertension Palpitations Mixed hyperlipidemia Procedures ECG COMPLETE ECG ROUTINE ECG W/LEAST 12 LDS W/I&R Santo Oneill MD [address] [place] [address] [facility] [address] [place] [address] Referral ID Status Reason Start Date Expiration Date V isits Requested Visits Authorized [id number] Closed Auto-Generate d Referral 08/03/2022 08/03/2023 1 1 [facility] for referral (narrative)* Outpatient Procedure (Routine) - Pending Review Specialty Diagnoses / Procedures Referred By Contac t Referred To Contact [facility] Diagnoses LBBB (left bundle branch block) Presence of cardiac resynchronization therapy defibrillator (ASSISTANT CENTER MANAGER-D) Acute on chronic systolic CHF (congestive heart failure) (HCC) Procedures ECG COMPLETE ECG ROUTINE ECG W/LEAST 12 LDS W/I&[place] [address] [place] [address] [address] Referral ID Status Reason Start Date Expiration Date Visits Requested Visits Authorized [id number] Pending Review Auto-Generat ed Referral 08/07/2023 08/06/2024 1 1 [facility] for referral (narrative)* Diagnostic Procedure Only (Urgent) - Closed Specialty Diagnoses / Procedures Referred By Contac t Referred To Contact [facility] Diagnoses Foot pain, left Localized swelling of left foot Procedures XR FOOT GENERAL 3V AP/LAT/OBL LEFT RADEX FOOT COMPLETE MINIMUM 3 VIEWS Alejandrina Harvey APRN.CNP [address] [place] [address] [place] [address] Referral ID Status Reason Start Date Expiration Date V isits Requested Visits Authorized [id number] Closed Auto-Generate d Referral 09/13/2023 10/12/2024 1 1 [facility] for referral (narrative)* Diagnostic Procedure Only (Routine) - Closed Specialty Diagnoses / Procedures Referred By Contac t Referred To Contact [facility] Diagnoses Repetitive stress injury Procedures XR FOOT GENERAL 3V AP/LAT/OBL LEFT RADEX FOOT COMPLETE MINIMUM 3 VIEWS Oliverio Mata [address] [place] [address] [place] [address] Referral ID Status Reason Start Date Expiration Date V isits Requested Visits Authorized [id number] Closed Auto-Generate d Referral 09/24/2023 10/23/2024 1 1 [facility] for referral (narrative)* Outpatient Procedure (Routine) - Pending Review Specialty Diagnoses / Procedures Referred By Contac t Referred [facility] Diagnoses Presence of cardiac resynchronization therapy defibrillator (ASSISTANT CENTER MANAGER-D) Non-ischemic cardiomyopathy (HCC) LBBB (left bundle branch block) Procedures ECG COMPLETE ECG ROUTINE ECG W/LEAST 12 LDS W/I&R Mercedes Vera APRN.GEOPHYSICS SCIENTIST [address] [place] [address] [facility] [address] [facility] [place] [id number] Referral ID Status Reason Start Date Expiration Date Visits Requested Visits Authorized [id number] Pending Review Auto-Generat ed Referral 11/01/2023 10/31/2024 1 1 [facility] for referral (narrative)* Diagnostic Procedure Only (Routine) - Pending Review Specialty Diagnoses / Procedures Referred By Contac t Referred To Contact [facility] Diagnoses Acute midline low back pain without sciatica Procedures XR LUMBAR GENERAL 3V AP/LAT/L5-S1 RADEX SPINE LUMBOSACRAL 2/3 VIEWS Mandeep Houser DO [address] [place] [address] [place] [address] Referral ID Status Reason Start Date Expiration Date Visits Requested Visits Authorized [id number] Pending Review Auto-Generat ed Referral 11/07/2023 12/06/2024 1 1 * Physical Therapy (Routine) - Authorized Specialty Diagnoses / Procedures Referred By Contac t Referred To Contact [facility] Diagnoses Acute midline low back pain without sciatica Procedures CONSULT TO PHYSICAL THERAPY PHYSICAL THERAPY EVALUATION HIGH COMPLEX 45 MINS Mandeep Houser DO [address] [place] [address] [facility] [address] [address] Referral ID Status Reason Start Date Expiration Date Visits Requested Visits Authorized [id number] Authorized PCP Requested Referral Auto-Generate d Referral 11/07/2023 11/06/2024 99 [phone] [facility] for referral (narrative)* Outpatient Procedure (Routine) - Closed Specialty Diagnoses / Procedures Referred By Contac t Referred To [facility] Diagnoses Chronic systolic congestive heart failure (HCC) Procedures ECHO ECHO TTHRC R-T 2D W/WOM-MODE COMPL SPEC&[place] [address] [place] [address] [facility] [address] [address] Referral ID Status Reason Start Date Expiration Date V isits Requested Visits Authorized [id number] Closed Auto-Generate d Referral 11/07/2023 08/06/2024 1 1 [facility] for referral (narrative)* Diagnostic Procedure Only (Urgent) - Closed Specialty Diagnoses / Procedures Referred By Contac t Referred To Contact [facility] Diagnoses Foot pain, left Localized swelling of left foot Procedures XR FOOT GENERAL 3V AP/LAT/OBL LEFT RADEX FOOT COMPLETE MINIMUM 3 VIEWS Alejandrina Harvey APRN.GEOPHYSICS SCIENTIST [address] [place] [address] [place] [address] Referral ID Status Reason Start Date Expiration Date V isits Requested Visits Authorized [id number] Closed Auto-Generate d Referral 09/13/2023 10/12/2024 1 1 [facility] for referral (narrative)* Outpatient Procedure (Routine) - New Request Specialty Diagnoses / Procedures Referred By Contac t Referred To Contact [facility] Diagnoses Nonischemic cardiomyopathy (HCC) Procedures ECHO ECHO TTHRC R-T 2D W/WOM-MODE COMPL SPEC&COLR Angel Benites DO [address] [place] [address] [facility] [address] [address] Referral ID Status Reason Start Date Expiration Date Visits Requested Visits Authorized [id number] New Request Auto-Generat ed Referral 08/06/2024 02/06/2025 1 1 [facility] for referral (narrative)* Diagnostic Procedure Only (Routine) - Closed Specialty Diagnoses / Procedures Referred By Contac t Referred To Contact [facility] Diagnoses Chronic left shoulder pain Left elbow pain Procedures XR SHOULDER LIMITED 2V AP/TRUE AP LEFT RADEX SHOULDER COMPLETE MINIMUM 2 VIEWS Alejandrina Harvey APRN.GEOPHYSICS SCIENTIST [address] [place] [address] [place] [address] Referral ID Status Reason Start Date Expiration Date V isits Requested Visits Authorized [id number] Closed Auto-Generate d Referral 09/01/2021 10/01/2022 1 1 * Diagnostic Procedure Only (Routine) - Closed Specialty Diagnoses / Procedures Referred By Contac t Referred To Contact [facility] Diagnoses Chronic left shoulder pain Left elbow pain Procedures XR ELBOW GENERAL 2V AP/LAT LEFT RADEX ELBOW 2 VIEWS Alejandrina Harvey APRN.GEOPHYSICS SCIENTIST [address] [place] [address] [place] [address] Referral ID Status Reason Start Date Expiration Date V isits Requested Visits Authorized [id number] Closed Auto-Generate d Referral 09/01/2021 10/01/2022 1 1 [facility] for referral (narrative)* Diagnostic Procedure Only (Routine) - Closed Specialty Diagnoses / Procedures Referred By Contac t Referred To Contact [facility] Diagnoses Chronic pain of right ankle Procedures XR ANKLE GENERAL 3V AP/LAT/OBL RT X-RAY ANKLE MINIMUM 3 VIEWS Maycol Valladares MD [address] [place] [address] [place] [address] Referral ID Status Reason Start Date Expiration Date V isits Requested Visits Authorized [id number] Closed Auto-Generate d Referral 12/29/2020 01/28/2022 1 1 [facility] for referral (narrative)No reason for referral information availableWTuscarawas [facility] Work Phone: Reason for visit Narrative* Diagnostic Procedure Only (Routine) - Closed Specialty Diagnoses / Procedures Referred By Crissy t Referred To Contact [facility] Diagnoses Encounter for screening mammogram for breast cancer Procedures KARTHIK SCREENING SCREENING MAMMOGRAPHY BI 2-VIEW BREAST INC CAD Valladares, Tereso, MD [address] [place] [address] [facility] [address] [place] [phone] Referral ID Status Reason Start Date Expiration Date V isits Requested Visits Authorized [id number] Closed Auto-Generate d Referral 07/01/2021 07/31/2022 1 1 [facility] for visit Narrative* Outpatient Procedure (Routine) - Closed Specialty Diagnoses / Procedures Referred By Gageac t Referred To Contact [facility] Diagnoses Abdominal bloating Belching Abdominal pain, unspecified abdominal location Procedures EGD DIAGNOSTIC ESOPHAGOGASTRODUODENOSC OPY TRANSORAL DIAGNOSTIC Sincere Perkins PA-C [address] [place] [address] [facility] [address] [address] Referral ID Status Reason Start Date Expiration Date V isits Requested Visits Authorized [id number] Closed Auto-Generate d Referral 11/02/2021 11/02/2022 1 1 [facility] for visit Narrative* Diagnostic Procedure Only (Routine) - Closed Specialty Diagnoses / Procedures Referred By Crissy t Referred To Contact [facility] Diagnoses Repetitive stress injury Procedures XR FOOT GENERAL 3V AP/LAT/OBL LEFT RADEX FOOT COMPLETE MINIMUM 3 VIEWS Oliverio Mata [address] [place] [address] [place] [address] Referral ID Status Reason Start Date Expiration Date V isits Requested Visits Authorized [id number] Closed Auto-Generate d Referral 09/24/2023 10/23/2024 1 1 [facility] for visit Narrative* Outpatient Procedure (Routine) - Closed Specialty Diagnoses / Procedures Referred By Contac t Referred To [facility] Diagnoses Chronic systolic congestive heart failure (HCC) Procedures ECHO ECHO TTHRC R-T 2D W/WOM-MODE COMPL SPEC&[place] [address] [place] [address] [facility] [address] [place] [address] Referral ID Status Reason Start Date Expiration Date V isits Requested Visits Authorized [id number] Closed Auto-Generate d Referral 11/07/2023 08/06/2024 1 1 [facility] for visit Narrative* Diagnostic Procedure Only (Urgent) - Closed Specialty Diagnoses / Procedures Referred By Contac t Referred To Contact [facility] Diagnoses Foot pain, left Localized swelling of left foot Procedures XR FOOT GENERAL 3V AP/LAT/OBL LEFT RADEX FOOT COMPLETE MINIMUM 3 VIEWS Alejandrina Harvey, ATHLETIC SCOUT.GEOPHYSICS SCIENTIST [address] [place] [address] [place] [address] Referral ID Status Reason Start Date Expiration Date V isits Requested Visits Authorized [id number] Closed Auto-Generate d Referral 09/13/2023 10/12/2024 1 1 [facility] for visit Narrative* Diagnostic Procedure Only (Routine) - Closed Specialty Diagnoses / Procedures Referred By Contac t Referred To Contact [facility] Diagnoses Chronic left shoulder pain Left elbow pain Procedures XR SHOULDER LIMITED 2V AP/TRUE AP LEFT RADEX SHOULDER COMPLETE MINIMUM 2 VIEWS Alejandrina Harvey, ATHLETIC SCOUT.GEOPHYSICS SCIENTIST [address] [place] [address] [place] [address] Referral ID Status Reason Start Date Expiration Date V isits Requested Visits Authorized [id number] Closed Auto-Generate d Referral 09/01/2021 10/01/2022 1 1 [facility] for visit Narrative* Diagnostic Procedure Only (Routine) - Closed Specialty Diagnoses / Procedures Referred By Contac t Referred To Contact [facility] Diagnoses Chronic pain of right ankle Procedures XR ANKLE GENERAL 3V AP/LAT/OBL RT X-RAY ANKLE MINIMUM 3 VIEWS Maycol Valladares MD [address] [place] [address] [place] [address] Referral ID Status Reason Start Date Expiration Date V isits Requested Visits Authorized [id number] Closed Auto-Generate d Referral 12/29/2020 01/28/2022 1 1 [facility] Summary Purpose Family History Grandmother [...] Documents on File Type Date Recorded 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 Advance Directive(s) 03/18/2021 2:56 PM Advance Directive(s) 09/28/2020 8:38 PM Advance Directive(s) 09/07/2020 9:42 AM Advance Directive(s) 09/03/2020 2:04 PM Advance Directive(s) 05/30/2020 10:25 AM Advance Directive(s) 05/24/2020 10:03 AM Advance Directive(s) 05/03/2020 9:25 AM Advance Directive(s) 03/09/2020 8:13 AM Advance Directive(s) 03/09/2020 12:44 PM Documents on File Type Date Recorded 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 Advance Directive(s) 03/18/2021 2:56 PM Advance Directive(s) 09/28/2020 8:38 PM Advance Directive(s) 09/07/2020 9:42 AM Advance Directive(s) 09/03/2020 2:04 PM Advance Directive(s) 05/30/2020 10:25 AM Advance Directive(s) 05/24/2020 10:03 AM Advance Directive(s) 05/03/2020 9:25 AM Advance Directive(s) 03/09/2020 8:13 AM Advance Directive(s) 03/09/2020 12:44 PM Documents on File Type Date Recorded 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 Advance Directive(s) 11/21/2021 10:55 AM Advance Directive(s) 03/18/2021 2:56 PM Advance Directive(s) 09/28/2020 8:38 PM Advance Directive(s) 09/07/2020 9:42 AM Advance Directive(s) 09/03/2020 2:04 PM Advance Directive(s) 05/30/2020 10:25 AM Advance Directive(s) 05/24/2020 10:03 AM Advance Directive(s) 05/03/2020 9:25 AM Advance Directive(s) 03/09/2020 8:13 AM Advance Directive(s) 03/09/2020 12:44 PM Documents on File Type Date Recorded 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 Yes November 13, 2024 5:58pm Reason for Referral Specialty Diagnoses / Procedures Referred By Contac t Referred To Contact CT IMAGING Diagnoses Diverticulitis RLQ abdominal pain Lower abdominal pain Procedures CT ABD/PEL W IVCON CT ABD & PELVIS W/CONTRAST Alejandrina Harvey APRN.GEOPHYSICS SCIENTIST [address] [place] [address] Ct [facility] Referral ID Status Reason Start Date Expiration Date Visits Requested Visits Authorized [id number] Authorized Auto-Generat ed Referral 10/19/2021 11/18/2022 1 1 Referral ID Status Reason Start Date Expiration Date V isits Requested Visits Authorized [id number] Closed Auto-Generate d Referral 10/19/2021 11/18/2022 1 1 Specialty Diagnoses / Procedures Referred By Contac t Referred To Contact CT IMAGING Diagnoses Abdominal distension (gaseous) Nausea RUQ abdominal pain Procedures CT ABD/PEL W IVCON CT ABD & PELVIS W/CONTRAST Mandeep Houser, DO [address] [place] [address] Ct Imaging Referral ID Status Reason Start Date Expiration Date Visits Requested Visits Authorized [id number] Authorized Auto-Generat ed Referral 08/22/2022 09/21/2023 1 1 Specialty Diagnoses / Procedures Referred By Contac t Referred To Contact CT IM[facility] Diagnoses Abdominal distension (gaseous) Nausea RUQ abdominal pain Procedures CT ABD/PEL W IVCON CT ABD & PELVIS W/CONTRAST Mandeep Houser L, DO [address] [place] [address] [facility] [place] [address] Referral ID Status Reason Start Date Expiration Date V isits Requested Visits Authorized [id number] Closed Auto-Generate d Referral 08/22/2022 09/21/2023 1 1 Specialty Diagnoses / Procedures Referred By Contac t Referred To Contact Diagnoses Acute on chronic systolic CHF (congestive heart failure) (HCC) Procedures CONSULT TO ELECTROPHYSIOLOGY OFFICE/OUTPATIENT NEW HIGH MDM 60-74 MINUTES Santo Oneill MD [address] [place] [address] Angel Gaxiola MD [address] [address] Referral ID Status Reason Start Date Expiration Date Visits Requested Visits Authorized [id number] Authorized PCP Requested Referral 04/16/2023 07/08/2023 1 1 Specialty Diagnoses / Procedures Referred By Contac t Referred To Contact [facility] Diagnoses Primary hypertension Procedures ECG COMPLETE ECG ROUTINE ECG W/LEAST 12 LDS W/I&R Santo Oneill MD [address] [place] [address] [facility] [address] [place] [address] Referral ID Status Reason Start Date Expiration Date Visits Requested Visits Authorized [id number] Pending Review Auto-Generat ed Referral 3 04/08/2024 1 1 Specialty Diagnoses / Procedures Referred By Contac t Referred To Contact CT IMAGING Diagnoses Word finding difficulty New onset of headaches after age [address] BRAIN WO IVCON CT HEAD/BRAIN W/O CONTRAST MATERIAL Mandeep Houser L, DO [address] [place] [address] [place] [address] Referral ID Status Reason Start Date Expiration Date Visits Requested Visits Authorized [id number] Authorized Auto-Generat ed Referral 10/31/2023 11/29/2024 1 1 Referral ID Status Reason Start Date Expiration Date V isits Requested Visits Authorized [id number] Closed Auto-Generate d Referral 10/31/2023 11/29/2024 1 1 Medications Administered Section Inactive Administered Medications - up to 3 most recent administrations Medication Order MAR Action Action Date Dose Rate Site benzocaine 20% 1 [place] (TOPEX) 1 [place], TOPICAL, ONCE, 1 dose, On Sun12/05/21 at 1030, 1 spray to the back of the throat prior to EGD - Pharmaceutical Waste: Aerosol -, Preprocedure Given 12/05/2021 9:50 AM EDT 1 [place] lactated ringers iv infusion 30 mL/hr, INTRAVENOUS, [...] section and content) DATE CREATED AUTHOR 02/21/2018 [facility] DATE CREATED AUTHOR AUTHOR'S ORGANIZ ATION 01/28/2019 [facility] DATE CREATED AUTHOR AUTHOR'S ORGANIZ ATION 02/09/2020 [facility] DATE CREATED AUTHOR AUTHOR'S ORGANIZ ATION 04/30/2020 [facility] DATE CREATED AUTHOR AUTHOR'S ORGANIZ ATION 01/11/2021 [facility] DATE CREATED AUTHOR AUTHOR'S ORGANIZ ATION 08/24/2023 [facility] DATE CREATED AUTHOR AUTHOR'S ORGANIZ ATION 11/03/2023 [facility] DATE CREATED AUTHOR AUTHOR'S ORGANIZ ATION 11/19/2023 [facility] DATE CREATED AUTHOR AUTHOR'S ORGANIZ ATION 04/26/2024 [facility] DATE CREATED AUTHOR AUTHOR'S ORGANIZ ATION 11/09/2024 [facility] Source Comments (unrecognize d section and content) In the event this informatio n is protected by the Federal Confidentiality of Alcohol and Drug Abuse Patient Records regulations: The Federal rules restrict any use of the information to criminally investigate or prosecute any alcohol or drug abuse patient.[facility] the event this information is protected by the Federal Confidentiality of Alcohol and Drug Abuse Patient Records regulations: The Federal rules restrict any use of the information to criminally investigate or prosecute any alcohol or drug abuse patient.[facility] Center[facility] the event this information is protected by the Federal Confidentiality of Alcohol and Drug Abuse Patient Records regulations: The Federal rules restrict any use of the information to criminally investigate or prosecute any alcohol or drug abuse patient.[facility] Center[facility] the event this information is protected by the Federal Confidentiality of Alcohol and Drug Abuse Patient Records regulations: The Federal rules restrict any use of the information to criminally investigate or prosecute any alcohol or drug abuse patient.[facility] Center[facility] the event this information is protected by the Federal Confidentiality of Alcohol and Drug Abuse Patient Records regulations: The Federal rules restrict any use of the information to criminally investigate or prosecute any alcohol or drug abuse patient.[facility] Center[facility] the event this information is protected by the Federal Confidentiality of Alcohol and Drug Abuse Patient Records regulations: The Federal rules restrict any use of the information to criminally investigate or prosecute any alcohol or drug abuse patient.[facility] Center[facility] the event this information is protected by the Federal Confidentiality of Alcohol and Drug Abuse Patient Records regulations: The Federal rules restrict any use of the information to criminally investigate or prosecute any alcohol or drug abuse patient.[facility] Center[facility] the event this information is protected by the Federal Confidentiality of Alcohol and Drug Abuse Patient Records regulations: The Federal rules restrict any use of the information to criminally investigate or prosecute any alcohol or drug abuse patient.[facility] Center[facility] the event this information is protected by the Federal Confidentiality of Alcohol and Drug Abuse Patient Records regulations: The Federal rules restrict any use of the information to criminally investigate or prosecute any alcohol or drug abuse patient.[facility] CenterIn the event this information is protected by the Federal Confidentiality of Alcohol and Drug Abuse Patient Records regulations: The Federal rules restrict any use of the information to criminally investigate or prosecute any alcohol or drug abuse patient.[facility] CenterIn the event this information is protected by the Federal Confidentiality of Alcohol and Drug Abuse Patient Records regulations: The Federal rules restrict any use of the information to criminally investigate or prosecute any alcohol or drug abuse patient.[facility] CenterIn the event this information is protected by the Federal Confidentiality of Alcohol and Drug Abuse Patient Records regulations: The Federal rules restrict any use of the information to criminally investigate or prosecute any alcohol or drug abuse patient.[facility] CenterIn the event this information is protected by the Federal Confidentiality of Alcohol and Drug Abuse Patient Records regulations: The Federal rules restrict any use of the information to criminally investigate or prosecute any alcohol or drug abuse patient.[facility] CenterIn the event this information is protected by the Federal Confidentiality of Alcohol and Drug Abuse Patient Records regulations: The Federal rules restrict any use of the information to criminally investigate or prosecute any alcohol or drug abuse patient.[facility] CenterIn the event this information is protected by the Federal Confidentiality of Alcohol and Drug Abuse Patient Records regulations: The Federal rules restrict any use of the information to criminally investigate or prosecute any alcohol or drug abuse patient.[facility] CenterIn the event this information is protected by the Federal Confidentiality of Alcohol and Drug Abuse Patient Records regulations: The Federal rules restrict any use of the information to criminally investigate or prosecute any alcohol or drug abuse patient.[facility] CenterIn the event this information is protected by the Federal Confidentiality of Alcohol and Drug Abuse Patient Records regulations: The Federal rules restrict any use of the information to criminally investigate or prosecute any alcohol or drug abuse patient.[facility] CenterIn the event this information is protected by the Federal Confidentiality of Alcohol and Drug Abuse Patient Records regulations: The Federal rules restrict any use of the information to criminally investigate or prosecute any alcohol or drug abuse patient.[facility] CenterIn the event this information is protected by the Federal Confidentiality of Alcohol and Drug Abuse Patient Records regulations: The Federal rules restrict any use of the information to criminally investigate or prosecute any alcohol or drug abuse patient.[facility] CenterIn the event this information is protected by the Federal Confidentiality of Alcohol and Drug Abuse Patient Records regulations: The Federal rules restrict any use of the information to criminally investigate or prosecute any alcohol or drug abuse patient.[facility] CenterIn the event this information is protected by the Federal Confidentiality of Alcohol and Drug Abuse Patient Records regulations: The Federal rules restrict any use of the information to criminally investigate or prosecute any alcohol or drug abuse patient.[facility] CenterIn the event this information is protected by the Federal Confidentiality of Alcohol and Drug Abuse Patient Records regulations: The Federal rules restrict any use of the information to criminally investigate or prosecute any alcohol or drug abuse patient.[facility] CenterIn the event this information is protected by the Federal Confidentiality of Alcohol and Drug Abuse Patient Records regulations: The Federal rules restrict any use of the information to criminally investigate or prosecute any alcohol or drug abuse patient.[facility] CenterIn the event this information is protected by the Federal Confidentiality of Alcohol and Drug Abuse Patient Records regulations: The Federal rules restrict any use of the information to criminally investigate or prosecute any alcohol or drug abuse patient.[facility] CenterIn the event this information is protected by the Federal Confidentiality of Alcohol and Drug Abuse Patient Records regulations: The Federal rules restrict any use of the information to criminally investigate or prosecute any alcohol or drug abuse patient.[facility] CenterIn the event this information is protected by the Federal Confidentiality of Alcohol and Drug Abuse Patient Records regulations: The Federal rules restrict any use of the information to criminally investigate or prosecute any alcohol or drug abuse patient.[facility] CenterIn the event this information is protected by the Federal Confidentiality of Alcohol and Drug Abuse Patient Records regulations: The Federal rules restrict any use of the information to criminally investigate or prosecute any alcohol or drug abuse patient.[facility] CenterIn the event this information is protected by the Federal Confidentiality of Alcohol and Drug Abuse Patient Records regulations: The Federal rules restrict any use of the information to criminally investigate or prosecute any alcohol or drug abuse patient.[facility] CenterIn the event this information is protected by the Federal Confidentiality of Alcohol and Drug Abuse Patient Records regulations: The Federal rules restrict any use of the information to criminally investigate or prosecute any alcohol or drug abuse patient.[facility] CenterIn the event this information is protected by the Federal Confidentiality of Alcohol and Drug Abuse Patient Records regulations: The Federal rules restrict any use of the information to criminally investigate or prosecute any alcohol or drug abuse patient.[facility] CenterIn the event this information is protected by the Federal Confidentiality of Alcohol and Drug Abuse Patient Records regulations: The Federal rules restrict any use of the information to criminally investigate or prosecute any alcohol or drug abuse patient.[facility] CenterIn the event this information is protected by the Federal Confidentiality of Alcohol and Drug Abuse Patient Records regulations: The Federal rules restrict any use of the information to criminally investigate or prosecute any alcohol or drug abuse patient.[facility] CenterIn the event this information is protected by the Federal Confidentiality of Alcohol and Drug Abuse Patient Records regulations: The Federal rules restrict any use of the information to criminally investigate or prosecute any alcohol or drug abuse patient.[facility] CenterIn the event this information is protected by the Federal Confidentiality of Alcohol and Drug Abuse Patient Records regulations: The Federal rules restrict any use of the information to criminally investigate or prosecute any alcohol or drug abuse patient.[facility] CenterIn the event this information is protected by the Federal Confidentiality of Alcohol and Drug Abuse Patient Records regulations: The Federal rules restrict any use of the information to criminally investigate or prosecute any alcohol or drug abuse patient.[facility] CenterIn the event this information is protected by the Federal Confidentiality of Alcohol and Drug Abuse Patient Records regulations: The Federal rules restrict any use of the information to criminally investigate or prosecute any alcohol or drug abuse patient.[facility] CenterIn the event this information is protected by the Federal Confidentiality of Alcohol and Drug Abuse Patient Records regulations: The Federal rules restrict any use of the information to criminally investigate or prosecute any alcohol or drug abuse patient.[facility] CenterIn the event this information is protected by the Federal Confidentiality of Alcohol and Drug Abuse Patient Records regulations: The Federal rules restrict any use of the information to criminally investigate or prosecute any alcohol or drug abuse patient.[facility] CenterIn the event this information is protected by the Federal Confidentiality of Alcohol and Drug Abuse Patient Records regulations: The Federal rules restrict any use of the information to criminally investigate or prosecute any alcohol or drug abuse patient.[facility] CenterIn the event this information is protected by the Federal Confidentiality of Alcohol and Drug Abuse Patient Records regulations: The Federal rules restrict any use of the information to criminally investigate or prosecute any alcohol or drug abuse patient.[facility] CenterIn the event this information is protected by the Federal Confidentiality of Alcohol and Drug Abuse Patient Records regulations: The Federal rules restrict any use of the information to criminally investigate or prosecute any alcohol or drug abuse patient.[facility] CenterIn the event this information is protected by the Federal Confidentiality of Alcohol and Drug Abuse Patient Records regulations: The Federal rules restrict any use of the information to criminally investigate or prosecute any alcohol or drug abuse patient.[facility] CenterIn the event this information is protected by the Federal Confidentiality of Alcohol and Drug Abuse Patient Records regulations: The Federal rules restrict any use of the information to criminally investigate or prosecute any alcohol or drug abuse patient.[facility] CenterIn the event this information is protected by the Federal Confidentiality of Alcohol and Drug Abuse Patient Records regulations: The Federal rules restrict any use of the information to criminally investigate or prosecute any alcohol or drug abuse patient.[facility] CenterIn the event this information is protected by the Federal Confidentiality of Alcohol and Drug Abuse Patient Records regulations: The Federal rules restrict any use of the information to criminally investigate or prosecute any alcohol or drug abuse patient.[facility] CenterIn the event this information is protected by the Federal Confidentiality of Alcohol and Drug Abuse Patient Records regulations: The Federal rules restrict any use of the information to criminally investigate or prosecute any alcohol or drug abuse patient.[facility] CenterIn the event this information is protected by the Federal Confidentiality of Alcohol and Drug Abuse Patient Records regulations: The Federal rules restrict any use of the information to criminally investigate or prosecute any alcohol or drug abuse patient.[facility] CenterIn the event this information is protected by the Federal Confidentiality of Alcohol and Drug Abuse Patient Records regulations: The Federal rules restrict any use of the information to criminally investigate or prosecute any alcohol or drug abuse patient.[facility] CenterIn the event this information is protected by the Federal Confidentiality of Alcohol and Drug Abuse Patient Records regulations: The Federal rules restrict any use of the information to criminally investigate or prosecute any alcohol or drug abuse patient.[facility] CenterIn the event this information is protected by the Federal Confidentiality of Alcohol and Drug Abuse Patient Records regulations: The Federal rules restrict any use of the information to criminally investigate or prosecute any alcohol or drug abuse patient.[facility] CenterIn the event this information is protected by the Federal Confidentiality of Alcohol and Drug Abuse Patient Records regulations: The Federal rules restrict any use of the information to criminally investigate or prosecute any alcohol or drug abuse patient.[facility] CenterIn the event this information is protected by the Federal Confidentiality of Alcohol and Drug Abuse Patient Records regulations: The Federal rules restrict any use of the information to criminally investigate or prosecute any alcohol or drug abuse patient.[facility] CenterIn the event this information is protected by the Federal Confidentiality of Alcohol and Drug Abuse Patient Records regulations: The Federal rules restrict any use of the information to criminally investigate or prosecute any alcohol or drug abuse patient.[facility] CenterIn the event this information is protected by the Federal Confidentiality of Alcohol and Drug Abuse Patient Records regulations: The Federal rules restrict any use of the information to criminally investigate or prosecute any alcohol or drug abuse patient.[facility] CenterIn the event this information is protected by the Federal Confidentiality of Alcohol and Drug Abuse Patient Records regulations: The Federal rules restrict any use of the information to criminally investigate or prosecute any alcohol or drug abuse patient.[facility] CenterIn the event this information is protected by the Federal Confidentiality of Alcohol and Drug Abuse Patient Records regulations: The Federal rules restrict any use of the information to criminally investigate or prosecute any alcohol or drug abuse patient.[facility] CenterIn the event this information is protected by the Federal Confidentiality of Alcohol and Drug Abuse Patient Records regulations: The Federal rules restrict any use of the information to criminally investigate or prosecute any alcohol or drug abuse patient.[facility] CenterIn the event this information is protected by the Federal Confidentiality of Alcohol and Drug Abuse Patient Records regulations: The Federal rules restrict any use of the information to criminally investigate or prosecute any alcohol or drug abuse patient.[facility] CenterIn the event this information is protected by the Federal Confidentiality of Alcohol and Drug Abuse Patient Records regulations: The Federal rules restrict any use of the information to criminally investigate or prosecute any alcohol or drug abuse patient.[facility] CenterIn the event this information is protected by the Federal Confidentiality of Alcohol and Drug Abuse Patient Records regulations: The Federal rules restrict any use of the information to criminally investigate or prosecute any alcohol or drug abuse patient.[facility] CenterIn the event this information is protected by the Federal Confidentiality of Alcohol and Drug Abuse Patient Records regulations: The Federal rules restrict any use of the information to criminally investigate or prosecute any alcohol or drug abuse patient.[facility] CenterIn the event this information is protected by the Federal Confidentiality of Alcohol and Drug Abuse Patient Records regulations: The Federal rules restrict any use of the information to criminally investigate or prosecute any alcohol or drug abuse patient.[facility] CenterIn the event this information is protected by the Federal Confidentiality of Alcohol and Drug Abuse Patient Records regulations: The Federal rules restrict any use of the information to criminally investigate or prosecute any alcohol or drug abuse patient.[facility] CenterIn the event this information is protected by the Federal Confidentiality of Alcohol and Drug Abuse Patient Records regulations: The Federal rules restrict any use of the information to criminally investigate or prosecute any alcohol or drug abuse patient.[facility] CenterIn the event this information is protected by the Federal Confidentiality of Alcohol and Drug Abuse Patient Records regulations: The Federal rules restrict any use of the information to criminally investigate or prosecute any alcohol or drug abuse patient.[facility] CenterIn the event this information is protected by the Federal Confidentiality of Alcohol and Drug Abuse Patient Records regulations: The Federal rules restrict any use of the information to criminally investigate or prosecute any alcohol or drug abuse patient.[facility] CenterIn the event this information is protected by the Federal Confidentiality of Alcohol and Drug Abuse Patient Records regulations: The Federal rules restrict any use of the information to criminally investigate or prosecute any alcohol or drug abuse patient.[facility] CenterIn the event this information is protected by the Federal Confidentiality of Alcohol and Drug Abuse Patient Records regulations: The Federal rules restrict any use of the information to criminally investigate or prosecute any alcohol or drug abuse patient.[facility] CenterIn the event this information is protected by the Federal Confidentiality of Alcohol and Drug Abuse Patient Records regulations: The Federal rules restrict any use of the information to criminally investigate or prosecute any alcohol or drug abuse patient.[facility] CenterIn the event this information is protected by the Federal Confidentiality of Alcohol and Drug Abuse Patient Records regulations: The Federal rules restrict any use of the information to criminally investigate or prosecute any alcohol or drug abuse patient.[facility] CenterIn the event this information is protected by the Federal Confidentiality of Alcohol and Drug Abuse Patient Records regulations: The Federal rules restrict any use of the information to criminally investigate or prosecute any alcohol or drug abuse patient.[facility] CenterIn the event this information is protected by the Federal Confidentiality of Alcohol and Drug Abuse Patient Records regulations: The Federal rules restrict any use of the information to criminally investigate or prosecute any alcohol or drug abuse patient.[facility] CenterIn the event this information is protected by the Federal Confidentiality of Alcohol and Drug Abuse Patient Records regulations: The Federal rules restrict any use of the information to criminally investigate or prosecute any alcohol or drug abuse patient.[facility] CenterIn the event this information is protected by the Federal Confidentiality of Alcohol and Drug Abuse Patient Records regulations: The Federal rules restrict any use of the information to criminally investigate or prosecute any alcohol or drug abuse patient.[facility] CenterIn the event this information is protected by the Federal Confidentiality of Alcohol and Drug Abuse Patient Records regulations: The Federal rules restrict any use of the information to criminally investigate or prosecute any alcohol or drug abuse patient.[facility] CenterIn the event this information is protected by the Federal Confidentiality of Alcohol and Drug Abuse Patient Records regulations: The Federal rules restrict any use of the information to criminally investigate or prosecute any alcohol or drug abuse patient.[facility] CenterIn the event this information is protected by the Federal Confidentiality of Alcohol and Drug Abuse Patient Records regulations: The Federal rules restrict any use of the information to criminally investigate or prosecute any alcohol or drug abuse patient.[facility] CenterIn the event this information is protected by the Federal Confidentiality of Alcohol and Drug Abuse Patient Records regulations: The Federal rules restrict any use of the information to criminally investigate or prosecute any alcohol or drug abuse patient.[facility] CenterIn the event this information is protected by the Federal Confidentiality of Alcohol and Drug Abuse Patient Records regulations: The Federal rules restrict any use of the information to criminally investigate or prosecute any alcohol or drug abuse patient.[facility] CenterIn the event this information is protected by the Federal Confidentiality of Alcohol and Drug Abuse Patient Records regulations: The Federal rules restrict any use of the information to criminally investigate or prosecute any alcohol or drug abuse patient.[facility] CenterIn the event this information is protected by the Federal Confidentiality of Alcohol and Drug Abuse Patient Records regulations: The Federal rules restrict any use of the information to criminally investigate or prosecute any alcohol or drug abuse patient.[facility] CenterIn the event this information is protected by the Federal Confidentiality of Alcohol and Drug Abuse Patient Records regulations: The Federal rules restrict any use of the information to criminally investigate or prosecute any alcohol or drug abuse patient.[facility] CenterIn the event this information is protected by the Federal Confidentiality of Alcohol and Drug Abuse Patient Records regulations: The Federal rules restrict any use of the information to criminally investigate or prosecute any alcohol or drug abuse patient.[facility] CenterIn the event this information is protected by the Federal Confidentiality of Alcohol and Drug Abuse Patient Records regulations: The Federal rules restrict any use of the information to criminally investigate or prosecute any alcohol or drug abuse patient.[facility] CenterIn the event this information is protected by the Federal Confidentiality of Alcohol and Drug Abuse Patient Records regulations: The Federal rules restrict any use of the information to criminally investigate or prosecute any alcohol or drug abuse patient.[facility] CenterIn the event this information is protected by the Federal Confidentiality of Alcohol and Drug Abuse Patient Records regulations: The Federal rules restrict any use of the information to criminally investigate or prosecute any alcohol or drug abuse patient.[facility] CenterIn the event this information is protected by the Federal Confidentiality of Alcohol and Drug Abuse Patient Records regulations: The Federal rules restrict any use of the information to criminally investigate or prosecute any alcohol or drug abuse patient.[facility] CenterIn the event this information is protected by the Federal Confidentiality of Alcohol and Drug Abuse Patient Records regulations: The Federal rules restrict any use of the information to criminally investigate or prosecute any alcohol or drug abuse patient.[facility] CenterIn the event this information is protected by the Federal Confidentiality of Alcohol and Drug Abuse Patient Records regulations: The Federal rules restrict any use of the information to criminally investigate or prosecute any alcohol or drug abuse patient.[facility] CenterIn the event this information is protected by the Federal Confidentiality of Alcohol and Drug Abuse Patient Records regulations: The Federal rules restrict any use of the information to criminally investigate or prosecute any alcohol or drug abuse patient.[facility] CenterIn the event this information is protected by the Federal Confidentiality of Alcohol and Drug Abuse Patient Records regulations: The Federal rules restrict any use of the information to criminally investigate or prosecute any alcohol or drug abuse patient.[facility] CenterIn the event this information is protected by the Federal Confidentiality of Alcohol and Drug Abuse Patient Records regulations: The Federal rules restrict any use of the information to criminally investigate or prosecute any alcohol or drug abuse patient.[facility] CenterIn the event this information is protected by the Federal Confidentiality of Alcohol and Drug Abuse Patient Records regulations: The Federal rules restrict any use of the information to criminally investigate or prosecute any alcohol or drug abuse patient.[facility] CenterIn the event this information is protected by the Federal Confidentiality of Alcohol and Drug Abuse Patient Records regulations: The Federal rules restrict any use of the information to criminally investigate or prosecute any alcohol or drug abuse patient.[facility] CenterIn the event this information is protected by the Federal Confidentiality of Alcohol and Drug Abuse Patient Records regulations: The Federal rules restrict any use of the information to criminally investigate or prosecute any alcohol or drug abuse patient.[facility] CenterIn the event this information is protected by the Federal Confidentiality of Alcohol and Drug Abuse Patient Records regulations: The Federal rules restrict any use of the information to criminally investigate or prosecute any alcohol or drug abuse patient.[facility] CenterIn the event this information is protected by the Federal Confidentiality of Alcohol and Drug Abuse Patient Records regulations: The Federal rules restrict any use of the information to criminally investigate or prosecute any alcohol or drug abuse patient.[facility] CenterIn the event this information is protected by the Federal Confidentiality of Alcohol and Drug Abuse Patient Records regulations: The Federal rules restrict any use of the information to criminally investigate or prosecute any alcohol or drug abuse patient.[facility] CenterIn the event this information is protected by the Federal Confidentiality of Alcohol and Drug Abuse Patient Records regulations: The Federal rules restrict any use of the information to criminally investigate or prosecute any alcohol or drug abuse patient.[facility] CenterIn the event this information is protected by the Federal Confidentiality of Alcohol and Drug Abuse Patient Records regulations: The Federal rules restrict any use of the information to criminally investigate or prosecute any alcohol or drug abuse patient.[facility] CenterIn the event this information is protected by the Federal Confidentiality of Alcohol and Drug Abuse Patient Records regulations: The Federal rules restrict any use of the information to criminally investigate or prosecute any alcohol or drug abuse patient.[facility] CenterIn the event this information is protected by the Federal Confidentiality of Alcohol and Drug Abuse Patient Records regulations: The Federal rules restrict any use of the information to criminally investigate or prosecute any alcohol or drug abuse patient.[facility] CenterIn the event this information is protected by the Federal Confidentiality of Alcohol and Drug Abuse Patient Records regulations: The Federal rules restrict any use of the information to criminally investigate or prosecute any alcohol or drug abuse patient.[facility] CenterIn the event this information is protected by the Federal Confidentiality of Alcohol and Drug Abuse Patient Records regulations: The Federal rules restrict any use of the information to criminally investigate or prosecute any alcohol or drug abuse patient.[facility] CenterIn the event this information is protected by the Federal Confidentiality of Alcohol and Drug Abuse Patient Records regulations: The Federal rules restrict any use of the information to criminally investigate or prosecute any alcohol or drug abuse patient.[facility] CenterIn the event this information is protected by the Federal Confidentiality of Alcohol and Drug Abuse Patient Records regulations: The Federal rules restrict any use of the information to criminally investigate or prosecute any alcohol or drug abuse patient.[facility] CenterIn the event this information is protected by the Federal Confidentiality of Alcohol and Drug Abuse Patient Records regulations: The Federal rules restrict any use of the information to criminally investigate or prosecute any alcohol or drug abuse patient.[facility] CenterIn the event this information is protected by the Federal Confidentiality of Alcohol and Drug Abuse Patient Records regulations: The Federal rules restrict any use of the information to criminally investigate or prosecute any alcohol or drug abuse patient.[facility] CenterIn the event this information is protected by the Federal Confidentiality of Alcohol and Drug Abuse Patient Records regulations: The Federal rules restrict any use of the information to criminally investigate or prosecute any alcohol or drug abuse patient.[facility] CenterIn the event this information is protected by the Federal Confidentiality of Alcohol and Drug Abuse Patient Records regulations: The Federal rules restrict any use of the information to criminally investigate or prosecute any alcohol or drug abuse patient.[facility] CenterIn the event this information is protected by the Federal Confidentiality of Alcohol and Drug Abuse Patient Records regulations: The Federal rules restrict any use of the information to criminally investigate or prosecute any alcohol or drug abuse patient.[facility] CenterIn the event this information is protected by the Federal Confidentiality of Alcohol and Drug Abuse Patient Records regulations: The Federal rules restrict any use of the information to criminally investigate or prosecute any alcohol or drug abuse patient.[facility] CenterIn the event this information is protected by the Federal Confidentiality of Alcohol and Drug Abuse Patient Records regulations: The Federal rules restrict any use of the information to criminally investigate or prosecute any alcohol or drug abuse patient.[facility] CenterIn the event this information is protected by the Federal Confidentiality of Alcohol and Drug Abuse Patient Records regulations: The Federal rules restrict any use of the information to criminally investigate or prosecute any alcohol or drug abuse patient.[facility] CenterIn the event this information is protected by the Federal Confidentiality of Alcohol and Drug Abuse Patient Records regulations: The Federal rules restrict any use of the information to criminally investigate or prosecute any alcohol or drug abuse patient.[facility] CenterIn the event this information is protected by the Federal Confidentiality of Alcohol and Drug Abuse Patient Records regulations: The Federal rules restrict any use of the information to criminally investigate or prosecute any alcohol or drug abuse patient.[facility] CenterIn the event this information is protected by the Federal Confidentiality of Alcohol and Drug Abuse Patient Records regulations: The Federal rules restrict any use of the information to criminally investigate or prosecute any alcohol or drug abuse patient.[facility] CenterIn the event this information is protected by the Federal Confidentiality of Alcohol and Drug Abuse Patient Records regulations: The Federal rules restrict any use of the information to criminally investigate or prosecute any alcohol or drug abuse patient.[facility] CenterIn the event this information is protected by the Federal Confidentiality of Alcohol and Drug Abuse Patient Records regulations: The Federal rules restrict any use of the information to criminally investigate or prosecute any alcohol or drug abuse patient.[facility] CenterIn the event this information is protected by the Federal Confidentiality of Alcohol and Drug Abuse Patient Records regulations: The Federal rules restrict any use of the information to criminally investigate or prosecute any alcohol or drug abuse patient.[facility] CenterIn the event this information is protected by the Federal Confidentiality of Alcohol and Drug Abuse Patient Records regulations: The Federal rules restrict any use of the information to criminally investigate or prosecute any alcohol or drug abuse patient.[facility] CenterIn the event this information is protected by the Federal Confidentiality of Alcohol and Drug Abuse Patient Records regulations: The Federal rules restrict any use of the information to criminally investigate or prosecute any alcohol or drug abuse patient.[facility] CenterIn the event this information is protected by the Federal Confidentiality of Alcohol and Drug Abuse Patient Records regulations: The Federal rules restrict any use of the information to criminally investigate or prosecute any alcohol or drug abuse patient.[facility] CenterIn the event this information is protected by the Federal Confidentiality of Alcohol and Drug Abuse Patient Records regulations: The Federal rules restrict any use of the information to criminally investigate or prosecute any alcohol or drug abuse patient.[facility] CenterIn the event this information is protected by the Federal Confidentiality of Alcohol and Drug Abuse Patient Records regulations: The Federal rules restrict any use of the information to criminally investigate or prosecute any alcohol or drug abuse patient.[facility] CenterIn the event this information is protected by the Federal Confidentiality of Alcohol and Drug Abuse Patient Records regulations: The Federal rules restrict any use of the information to criminally investigate or prosecute any alcohol or drug abuse patient.[facility] CenterIn the event this information is protected by the Federal Confidentiality of Alcohol and Drug Abuse Patient Records regulations: The Federal rules restrict any use of the information to criminally investigate or prosecute any alcohol or drug abuse patient.[facility] CenterIn the event this information is protected by the Federal Confidentiality of Alcohol and Drug Abuse Patient Records regulations: The Federal rules restrict any use of the information to criminally investigate or prosecute any alcohol or drug abuse patient.[facility] CenterIn the event this information is protected by the Federal Confidentiality of Alcohol and Drug Abuse Patient Records regulations: The Federal rules restrict any use of the information to criminally investigate or prosecute any alcohol or drug abuse patient.[facility] CenterIn the event this information is protected by the Federal Confidentiality of Alcohol and Drug Abuse Patient Records regulations: The Federal rules restrict any use of the information to criminally investigate or prosecute any alcohol or drug abuse patient.[facility] CenterIn the event this information is protected by the Federal Confidentiality of Alcohol and Drug Abuse Patient Records regulations: The Federal rules restrict any use of the information to criminally investigate or prosecute any alcohol or drug abuse patient.[facility] CenterIn the event this information is protected by the Federal Confidentiality of Alcohol and Drug Abuse Patient Records regulations: The Federal rules restrict any use of the information to criminally investigate or prosecute any alcohol or drug abuse patient.[facility] CenterIn the event this information is protected by the Federal Confidentiality of Alcohol and Drug Abuse Patient Records regulations: The Federal rules restrict any use of the information to criminally investigate or prosecute any alcohol or drug abuse patient.[facility] CenterIn the event this information is protected by the Federal Confidentiality of Alcohol and Drug Abuse Patient Records regulations: The Federal rules restrict any use of the information to criminally investigate or prosecute any alcohol or drug abuse patient.[facility] CenterIn the event this information is protected by the Federal Confidentiality of Alcohol and Drug Abuse Patient Records regulations: The Federal rules restrict any use of the information to criminally investigate or prosecute any alcohol or drug abuse patient.[facility] CenterIn the event this information is protected by the Federal Confidentiality of Alcohol and Drug Abuse Patient Records regulations: The Federal rules restrict any use of the information to criminally investigate or prosecute any alcohol or drug abuse patient.[facility] Reason for Visit (unrecogniz ed section and content) Reason Comments PT Discharge Specialty Diagnoses / Procedures Referred By Contac t Referred To Contact [facility] Diagnoses Left shoulder pain, unspecified chronicity Lateral epicondylitis of left elbow Procedures CONSULT TO PHYSICAL THERAPY PHYSICAL THERAPY EVALUATION HIGH COMPLEX 45 MINS Maycol Valladares MD [address] [place] [address] [facility] [address] [place] [address] Referral ID Status Reason Start Date Expiration Date Visits Requested Visits Authorized [id number] Authorized PCP Requested Referral Auto-Generate d Referral [...] & PELVIS W/CONTRAST Alejandrina Harvey APRN.CNP [address] [place] [address] Ct Imaging Referral ID Status Reason Start Date Expiration Date V isits Requested Visits Authorized [id number] Closed Auto-Generate d Referral 10/19/2021 11/18/2022 1 [...] & PELVIS W/CONTRAST Mandeep Houser DO [address] [place] [address] [place] [address] Referral ID Status Reason Start Date Expiration Date V isits Requested Visits Authorized [id number] Closed Auto-Generate d Referral 08/22/2022 09/21/2023 1 [...] foot pain and swelling. Saw Dr. 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 Reason Comments Establish Care 5 mos follow [...] Care Teams (unrecognized sec tion and content) Waist Cutter Relationship Specialty Start Date End Date Maycol Valladares MD [address] [place] [address] PCP - General Internal Medicine 06/14/20 Galen Heaton MD [address] [place] [address] Primary Staff Physician Cardiology 07/30/18 Waist Cutter Relationship Specialty Start Date End Date Maycol Valladares MD [address] [place] [address] PCP - General Internal Medicine 06/14/20 Galen Heaton MD [address] [place] [address] Primary Staff Physician Cardiology 07/30/18 Waist Cutter Relationship Specialty Start Date End Date Maycol Valladares MD [address] [place] [address] PCP - General Internal Medicine 06/14/20 Galen Heaton MD [address] [place] [address] Primary Staff Physician Cardiology 07/30/18 Waist Cutter Relationship Specialty Start Date End Date Maycol Valladares MD [address] [place] [address] PCP - General Internal Medicine 06/14/20 Galen Heaton MD [address] [facility] [facility] [place] [address] Primary Staff Physician Cardiology 07/30/18 Waist Cutter Relationship Specialty Start Date End Date Mandeep Houser, DO [address] [facility] [place] [address] PCP - General Family Practice 09/01/21 Galen Heaton MD [address] [place] [address] Primary Staff Physician Cardiology 07/30/18 Waist Cutter Relationship Specialty Start Date End Date Mandeep Houser, DO [address] [facility] [place] [address] PCP - General Family Practice 09/01/21 Galen Heaton MD [address] [place] [address] Primary Staff Physician Cardiology 07/30/18 Waist Cutter Relationship Specialty Start Date End Date Mandeep Houser, DO [address] [facility] [place] [address] PCP - General Family Practice 09/01/21 Galen Heaton MD [address] [place] [address] Primary Staff Physician Cardiology 07/30/18 Waist Cutter Relationship Specialty Start Date End Date Mandeep Houser, DO [address] [facility] [place] [address] PCP - General Family Practice 09/01/21 Galen Heaton MD [address] [facility] [place] [address] Primary Staff Physician Cardiology 07/30/18 Waist Cutter Relationship Specialty Start Date End Date Maycol Valladares MD [address] [facility] [place] [address] PCP - General Internal Medicine 06/14/20 08/31/21 Mandeep Houser, DO [address] [place] [address] PCP - General Family Practice 09/01/21 Galen Heaton MD [address] [place] [address] Primary Staff Physician Cardiology 07/30/18 Waist Cutter Relationship Specialty Start Date End Date Mandeep Houser, DO [address] [place] [address] PCP - General Family Practice 09/01/21 Galen Heaton MD [address] [place] [address] Primary Staff Physician Cardiology 07/30/18 Waist Cutter Relationship Specialty Start Date End Date Mandeep Houser, DO [address] [facility] [place] [address] PCP - General Family Practice 09/01/21 Galen Heaton MD [address] [place] [address] Primary Staff Physician Cardiology 07/30/18 Waist Cutter Relationship Specialty Start Date End Date Mandeep Houser, DO [address] [facility] [place] [address] PCP - General Family Practice 09/01/21 Galen Heaton MD [address] [place] [address] Primary Staff Physician Cardiology 07/30/18 Waist Cutter Relationship Specialty Start Date End Date Mandeep Houser, DO [address] [facility] [place] [address] PCP - General Family Practice 09/01/21 Galen Heaton MD [address] [place] [address] Primary Staff Physician Cardiology 07/30/18 Waist Cutter Relationship Specialty Start Date End Date Mandeep Houser, DO [address] [facility] [place] [address] PCP - General Family Practice 09/01/21 Galen Heaton MD [address] [place] [address] Primary Staff Physician Cardiology 07/30/18 Waist Cutter Relationship Specialty Start Date End Date Mandeep Houser, DO [address] [facility] [place] [address] PCP - General Family Practice 09/01/21 Galen Heaton MD [address] [place] [address] Primary Staff Physician Cardiology 07/30/18 Waist Cutter Relationship Specialty Start Date End Date Mandeep Houser, DO [address] [place] [address] PCP - General Family Practice 09/01/21 Galen Heaton MD [address] [place] [address] Primary Staff Physician Cardiology 07/30/18 Waist Cutter Relationship Specialty Start Date End Date Mandeep Houser, DO [address] [place] [address] PCP - General Family Practice 09/01/21 Galen Heaton MD [address] [place] [address] Primary Staff Physician Cardiology 07/30/18 Waist Cutter Relationship Specialty Start Date End Date Mandeep Houser, DO [address] [facility] [place] [address] PCP - General Family Practice 09/01/21 Galen Heaton MD [address] [place] [address] Primary Staff Physician Cardiology 07/30/18 Waist Cutter Relationship Specialty Start Date End Date Mandeep Houser, DO [address] [facility] [place] [address] PCP - General Family Practice 09/01/21 Galen Heaton MD [address] [place] [address] Primary Staff Physician Cardiology 07/30/18 Waist Cutter Relationship Specialty Start Date End Date Mandeep Houser, DO [address] [facility] [place] [address] PCP - General Family Practice 09/01/21 Galen Heaton MD [address] [place] [address] Primary Staff Physician Cardiology 07/30/18 Waist Cutter Relationship Specialty Start Date End Date Mandeep Houser, DO [address] [facility] [place] [address] PCP - General Family Practice 09/01/21 Galen Heaton MD [address] [place] [address] Primary Staff Physician Cardiology 07/30/18 Waist Cutter Relationship Specialty Start Date End Date Mandeep Houser, DO [address] [facility] [place] [address] PCP - General Family Practice 09/01/21 Galen Heaton MD [address] [place] [address] Primary Staff Physician Cardiology 07/30/18 Waist Cutter Relationship Specialty Start Date End Date Mandeep Houser, DO [address] [facility] [place] [address] PCP - General Family Medicine 09/01/21 Galen Heaton MD [address] [place] [address] Primary Staff Physician Cardiology 07/30/18 Waist Cutter Relationship Specialty Start Date End Date Mandeep Houser, DO [address] [facility] [place] [address] PCP - General Family Medicine 09/01/21 Galen Heaton MD [address] [facility] [place] [address] Primary Staff Physician Cardiology 07/30/18 Waist Cutter Relationship Specialty Start Date End Date Mandeep Houser, DO [address] [facility] [place] [address] PCP - General Family Medicine 09/01/21 Galen Heaton MD [address] [facility] [place] [place] [address] Primary Staff Physician Cardiology 07/30/18 Waist Cutter Relationship Specialty Start Date End Date Mandeep Houser, DO [address] [facility] [place] [address] PCP - General Family Medicine 09/01/21 Galen Heaton MD [address] [facility] [place] [place] [address] Primary Staff Physician Cardiology 07/30/18 Waist Cutter Relationship Specialty Start Date End Date Mandeep Houser, DO [address] [facility] [place] [address] PCP - General Family Medicine 09/01/21 Galen Heaton MD [address] [facility] [place] [address] Primary Staff Physician Cardiology 07/30/18 Waist Cutter Relationship Specialty Start Date End Date Mandeep Houser, DO [address] [facility] [place] [address] PCP - General Family Medicine 09/01/21 Galen Heaton MD [address] [place] [address] Primary Staff Physician Cardiology 07/30/18 Waist Cutter Relationship Specialty Start Date End Date Mandeep Houser, DO [address] [facility] [place] [address] PCP - General Family Medicine 09/01/21 Galen Haeton MD [address] [place] [address] Primary Staff Physician Cardiology 07/30/18 Waist Cutter Relationship Specialty Start Date End Date Mandeep Houser, DO [address] [facility] [place] [address] PCP - General Family Medicine 09/01/21 Galen Heaton MD [address] [place] [address] Primary Staff Physician Cardiology 07/30/18 Waist Cutter Relationship Specialty Start Date End Date Mandeep Houser, DO [address] [facility] [place] [address] PCP - General Family Medicine 09/01/21 Galen Heaton MD [address] [place] [address] Primary Staff Physician Cardiology 07/30/18 Waist Cutter Relationship Specialty Start Date End Date Mandeep Houser, DO [address] [facility] [place] [address] PCP - General Family Medicine 09/01/21 Galen Heaton MD [address] [place] [address] Primary Staff Physician Cardiology 07/30/18 Waist Cutter Relationship Specialty Start Date End Date Mandeep Houser, DO [address] [facility] [place] [address] PCP - General Family Medicine 09/01/21 Galen Heaton MD [address] [place] [address] Primary Staff Physician Cardiology 07/30/18 Waist Cutter Relationship Specialty Start Date End Date Mandeep Houser, DO [address] [facility] [place] [address] PCP - General Family Medicine 09/01/21 Galen Heaton MD [address] [place] [address] Primary Staff Physician Cardiology 07/30/18 Waist Cutter Relationship Specialty Start Date End Date Mandeep Houser DO [address] [facility] [place] [address] PCP - General Family Medicine 09/01/21 Galen Heaton MD [address] [place] [address] Primary Staff Physician Cardiology 07/30/18 Waist Cutter Relationship Specialty Start Date End Date Mandeep Houser DO [address] [place] [address] PCP - General Family Medicine 09/01/21 Galen Heaton MD [address] [place] [address] Primary Staff Physician Cardiology 07/30/18 Waist Cutter Relationship Specialty Start Date End Date Mandeep Houser DO [address] [place] [address] PCP - General Family Medicine 09/01/21 Galen Heaton MD [address] [place] [address] Primary Staff Physician Cardiology 07/30/18 Waist Cutter Relationship Specialty Start Date End Date Mandeep Houser DO [address] [place] [address] PCP - General Family Medicine 09/01/21 Galen Heaton MD [address] [place] [address] Primary Staff Physician Cardiology 07/30/18 Waist Cutter Relationship Specialty Start Date End Date Mandeep Houser DO [address] [place] [address] PCP - General Family Medicine 09/01/21 Galen Heaton MD [address] [place] [address] Primary Staff Physician Cardiology 07/30/18 Waist Cutter Relationship Specialty Start Date End Date Mandeep Houser DO [address] [place] [address] PCP - General Family Medicine 09/01/21 Galen Heaton MD [address] [place] [address] Primary Staff Physician Cardiology 07/30/18 Waist Cutter Relationship Specialty Start Date End Date Mandeep Houser DO [address] [place] [address] PCP - General Family Medicine 09/01/21 Galen Heaton MD [address] [place] [address] Primary Staff Physician Cardiology 07/30/18 Waist Cutter Relationship Specialty Start Date End Date Rafael Frank III [address] [phone] PCP - General Family Medicine 09/02/12 05/23/20 Galen Heaton MD [address] [place] [address] Primary Staff Physician Cardiology 07/30/18 Waist Cutter Relationship Specialty Start Date End Date Mandeep Houser DO [address] [place] [address] PCP - General Family Medicine 09/01/21 Galen Heaton MD [address] [place] [address] Primary Staff Physician Cardiology 07/30/18 Waist Cutter Relationship Specialty Start Date End Date Rafael Frank LISA [address] [phone] PCP - General Family Medicine 09/02/12 05/23/20 Galen Heaton MD [address] [place] [address] Primary Staff Physician Cardiology 07/30/18 Waist Cutter Relationship Specialty Start Date End Date Mandeep Houser DO [address] [place], [place] [address] PCP - General Family Medicine 09/01/21 Galen Heaton MD [address] [place] [address] Primary Staff Physician Cardiology 07/30/18 Waist Cutter Relationship Specialty Start Date End Date Mandeep Houser DO [address] [place] [address] PCP - General Family Medicine 09/01/21 Galen Heaton MD [address] [place], [place] [address] Primary Staff Physician Cardiology 07/30/18 Waist Cutter Relationship Specialty Start Date End Date Mandeep Houser DO [address] [place] [address] PCP - General Family Medicine 09/01/21 Galen Heaton MD [address] [place] [address] Primary Staff Physician Cardiology 07/30/18 Waist Cutter Relationship Specialty Start Date End Date Mandeep Houser DO [address] [place] [address] PCP - General Family Medicine 09/01/21 Galen Heaton MD [address] [place], [place] [address] [phone] Primary Staff Physician Cardiology 07/30/18 Waist Cutter Relationship Specialty Start Date End Date Mandeep Houser DO [address] [place] [address] PCP - General Family Medicine 09/01/21 Galen Heaton MD [address] [place] [address] Primary Staff Physician Cardiology 07/30/18 Waist Cutter Relationship Specialty Start Date End Date Mandeep Houser DO [address] [place] [address] PCP - General Family Medicine 09/01/21 Galen Heaton MD [address] [place] [address] Primary Staff Physician Cardiology 07/30/18 Waist Cutter Relationship Specialty Start Date End Date Mandeep Houser DO [address] [place] [address] PCP - General Family Medicine 09/01/21 Galen Heaton MD [address] [place] [address] Primary Staff Physician Cardiology 07/30/18 Waist Cutter Relationship Specialty Start Date End Date Mandeep Houser DO [address] [place] [address] PCP - General Family Medicine 09/01/21 Galen Heaton MD [address] [place] [address] Primary Staff Physician Cardiology 07/30/18 Fitz Mcqueen RN [address] [place] [address] Primary Care Healthcare Risk Control Consultant Internal Medicine 07/19/23 Waist Cutter Relationship Specialty Start Date End Date Mandeep Houser DO [address] [place] [address] PCP - General Family Medicine 09/01/21 Galen Heaton MD [address] [place] [address] Primary Staff Physician Cardiology 07/30/18 Fitz Mcqueen RN [address] [facility] [place] [address] Primary Care Healthcare Risk Control Consultant Internal Medicine 07/19/23 Waist Cutter Relationship Specialty Start Date End Date Mandeep Houser DO [address] [place] [address] PCP - General Family Medicine 09/01/21 Galen Heaton MD [address] [facility] [place] [place] [address] Primary Staff Physician Cardiology 07/30/18 Fitz Mcqueen RN [address] [place] [address] Primary Care Healthcare Risk Control Consultant Internal Medicine 07/19/23 Waist Cutter Relationship Specialty Start Date End Date Mandeep Houser DO [address] [place] [address] PCP - General Family Medicine 09/01/21 Galen Heaton MD [address] [facility] [place] [address] Primary Staff Physician Cardiology 07/30/18 Fitz Mcqueen RN [address] [place] [address] Primary Care Healthcare Risk Control Consultant Internal Medicine 07/19/23 Waist Cutter Relationship Specialty Start Date End Date Mandeep Houser DO [address] [place] [address] PCP - General Family Medicine 09/01/21 Galen Heaton MD [address] [facility] [place] [address] Primary Staff Physician Cardiology 07/30/18 Fitz Mcqueen RN [address] [place] [address] Primary Care Healthcare Risk Control Consultant Internal Medicine 07/19/23 Waist Cutter Relationship Specialty Start Date End Date Mandeep Houser DO [address] [place] [address] PCP - General Family Medicine 09/01/21 Galen Heaton MD [address] [place] [address] Primary Staff Physician Cardiology 07/30/18 Waist Cutter Relationship Specialty Start Date End Date Mandeep Houser DO [address] [place] [address] PCP - General Family Medicine 09/01/21 Galen Heaton MD [address] [facility] [place] [address] Primary Staff Physician Cardiology 07/30/18 Waist Cutter Relationship Specialty Start Date End Date Mandeep Houser DO [address] [place] [address] PCP - General Family Medicine 09/01/21 Galen Heaton MD [address] [place] [address] Primary Staff Physician Cardiology 07/30/18 Thuy Aguirre, ATHLETIC SCOUT.GEOPHYSICS SCIENTIST [address] [place] [address] Cardiology 09/05/23 Team Status: Active Member Role [...] ALEJANDRE Attending Provider, Referring Provider Ac tive Waist Cutter Relationship Specialty Start Date End Date Mandeep Houser DO [address] [place] [address] PCP - General Family Medicine 09/01/21 Galen Heaton MD [address] [place] [address] Primary Staff Physician Cardiology 07/30/18 Thuy Aguirre, ATHLETIC SCOUT.GEOPHYSICS SCIENTIST [address] [place] [address] Cardiology 09/05/23 Waist Cutter Relationship Specialty Start Date End Date Mandeep Houser DO [address] [place] [address] PCP - General Family Medicine 09/01/21 Galen Heaton MD [address] [place] [address] Primary Staff Physician Cardiology 07/30/18 Thuy Aguirre, ATHLETIC SCOUT.GEOPHYSICS SCIENTIST [address] [place] [address] Cardiology 09/05/23 Waist Cutter Relationship Specialty Start Date End Date Mandeep Houser DO [address] [place] [address] PCP - General Family Medicine 09/01/21 Galen Heaton MD [address] [place] [address] Primary Staff Physician Cardiology 07/30/18 Thuy Aguirre, ATHLETIC SCOUT.GEOPHYSICS SCIENTIST [address] [place] [address] Cardiology 09/05/23 Waist Cutter Relationship Specialty Start Date End Date Mandeep Houser DO [address] [place] [address] PCP - General Family Medicine 09/01/21 Galen Heaton MD [address] [place] [address] Primary Staff Physician Cardiology 07/30/18 Thuy Aguirre, ATHLETIC SCOUT.GEOPHYSICS SCIENTIST [address] [place] [address] Cardiology 09/05/23 Waist Cutter Relationship Specialty Start Date End Date Mandeep Houser DO [address] [place] [address] PCP - General Family Medicine 09/01/21 Galen Heaton MD [address] [place] [address] Primary Staff Physician Cardiology 07/30/18 Thuy Aguirre, ATHLETIC SCOUT.GEOPHYSICS SCIENTIST [address] [place] [address] Cardiology 09/05/23 Waist Cutter Relationship Specialty Start Date End Date Mandeep Houser DO [address] [place] [address] PCP - General Family Medicine 09/01/21 Galen Heaton MD [address] [place] [address] Primary Staff Physician Cardiology 07/30/18 Thuy Aguirre, ATHLETIC SCOUT.GEOPHYSICS SCIENTIST [address] [place] [address] Cardiology 09/05/23 Waist Cutter Relationship Specialty Start Date End Date Mandeep Houser DO [address] [place] [address] PCP - General Family Medicine 09/01/21 Galen Heaton MD [address] [place] [address] Primary Staff Physician Cardiology 07/30/18 Thuy Aguirre, ATHLETIC SCOUT.GEOPHYSICS SCIENTIST [address] [place] [address] Cardiology 09/05/23 Waist Cutter Relationship Specialty Start Date End Date Mandeep Houser DO [address] [place] [address] PCP - General Family Medicine 09/01/21 Galen Heaton MD [address] [place] [address] Primary Staff Physician Cardiology 07/30/18 Thuy Aguirre, ATHLETIC SCOUT.GEOPHYSICS SCIENTIST [address] [place] [address] Cardiology 09/05/23 Waist Cutter Relationship Specialty Start Date End Date Mandeep Houser DO [address] [place] [address] PCP - General Family Medicine 09/01/21 Galen Heaton MD [address] [place] [address] Primary Staff Physician Cardiology 07/30/18 Thuy Aguirre, ATHLETIC SCOUT.GEOPHYSICS SCIENTIST [address] [place] [address] Cardiology 09/05/23 Waist Cutter Relationship Specialty Start Date End Date Mandeep Houser DO [address] [place] [address] PCP - General Family Medicine 09/01/21 Galen Heaton MD [address] [place] [address] Primary Staff Physician Cardiology 07/30/18 Thuy Aguirre, ATHLETIC SCOUT.GEOPHYSICS SCIENTIST [address] [place] [address] Cardiology 09/05/23 Waist Cutter Relationship Specialty Start Date End Date Mandeep Houser DO [address] [place] [address] PCP - General Family Medicine 09/01/21 Galen Heaton MD [address] [place] [address] Primary Staff Physician Cardiology 07/30/18 Thuy Aguirre, ATHLETIC SCOUT.GEOPHYSICS SCIENTIST [address] [place] [address] Cardiology 09/05/23 Waist Cutter Relationship Specialty Start Date End Date Mandeep Houser DO [address] [place] [address] PCP - General Family Medicine 09/01/21 Galen Heaton MD [address] [place] [address] Primary Staff Physician Cardiology 07/30/18 Thuy Aguirre, ATHLETIC SCOUT.GEOPHYSICS SCIENTIST [address] [place] [address] Cardiology 09/05/23 Waist Cutter Relationship Specialty Start Date End Date Mandeep Houser DO [address] [place] [address] PCP - General Family Medicine 09/01/21 Galen Heaton MD [address] [place] [address] Primary Staff Physician Cardiology 07/30/18 Thuy Aguirre, ATHLETIC SCOUT.GEOPHYSICS SCIENTIST [address] [place] [address] Cardiology 09/05/23 Waist Cutter Relationship Specialty Start Date End Date Mandeep Houser DO [address] [place] [address] PCP - General Family Medicine 09/01/21 Galen Heaton MD [address] [place] [address] Primary Staff Physician Cardiology 07/30/18 Thuy Aguirre, ATHLETIC SCOUT.GEOPHYSICS SCIENTIST [address] [place] [address] Cardiology 09/05/23 Waist Cutter Relationship Specialty Start Date End Date Mandeep Houser DO [address] [place] [address] PCP - General Family Medicine 09/01/21 Galen Heaton MD [address] [place] [address] Primary Staff Physician Cardiology 07/30/18 Thuy Aguirre, ATHLETIC SCOUT.GEOPHYSICS SCIENTIST [address] [place] [address] Cardiology 09/05/23 ProviderUvaldo MD Instructor Industrial Design 11/18/23 12/01/23 Waist Cutter Relationship Specialty Start Date End Date Mandeep Houser DO [address] [place] [address] PCP - General Family Medicine 09/01/21 Galen Heaton MD [address] [place] [address] Primary Staff Physician Cardiology 07/30/18 Thuy Aguirre, ATHLETIC SCOUT.GEOPHYSICS SCIENTIST [address] [place] [address] Cardiology 09/05/23 Waist Cutter Relationship Specialty Start Date End Date Mandeep Houser DO [address] [place] [address] PCP - General Family Medicine 09/01/21 Galen Heaton MD [address] [place] [address] Primary Staff Physician Cardiology 07/30/18 Thuy Aguirre ATHLETIC SCOUT.GEOPHYSICS SCIENTIST [address] [place] [address] Cardiology 09/05/23 Waist Cutter Relationship Specialty Start Date End Date Mandeep Houser DO [address] [place] [address] PCP - General Family Medicine 09/01/21 Galen Heaton MD [address] [place] [address] Primary Staff Physician Cardiology 07/30/18 Thuy Aguirre, ATHLETIC SCOUT.GEOPHYSICS SCIENTIST [address] [place] [address] Cardiology 09/05/23 Waist Cutter Relationship Specialty Start Date End Date Mandeep Houser DO [address] [place] [address] PCP - General Family Medicine 09/01/21 Galen Heaton MD [address] [place] [address] Primary Staff Physician Cardiology 07/30/18 Waist Cutter Relationship Specialty Start Date End Date Mandeep Houser DO [address] [place] [address] PCP - General Family Medicine 09/01/21 Galen Heaton MD [address] [place] [address] Primary Staff Physician Cardiology 07/30/18 Thuy Aguirre, ATHLETIC SCOUT.GEOPHYSICS SCIENTIST [address] [place] [address] Cardiology 09/05/23 Waist Cutter Relationship Specialty Start Date End Date Mandeep Houser DO [address] [place] [address] PCP - General Family Medicine 09/01/21 Galen Heaton MD [address] [place], [place] [address] Primary Staff Physician Cardiology 07/30/18 Thuy Aguirre, ATHLETIC SCOUT.GEOPHYSICS SCIENTIST [address] [place], [place] [id number] Cardiology 09/05/23 Waist Cutter Relationship Specialty Start Date End Date Mandeep Houser DO [address] [place] [address] PCP - General Family Medicine 09/01/21 Galen Heaton MD [address] [place], [place] [address] Primary Staff Physician Cardiology 07/30/18 Waist Cutter Relationship Specialty Start Date End Date Mandeep Houser DO [address] [place] [address] PCP - General Family Medicine 09/01/21 Galen Heaton MD [address] [place] [address] Primary Staff Physician Cardiology 07/30/18 Thuy Aguirre, ATHLETIC SCOUT.GEOPHYSICS SCIENTIST [address] [place], [place] [id number] Cardiology 09/05/23 Waist Cutter Relationship Specialty Start Date End Date Maycol Valladares MD [address] [place] [address] PCP - General Internal Medicine 06/14/20 08/31/21 Galen Heaton MD [address] [place] [address] Primary Staff Physician Cardiology 07/30/18 Waist Cutter Relationship Specialty Start Date End Date Maycol Valladares MD [address] [place] [address] PCP - General Internal Medicine 06/14/20 08/31/21 Galen Heaton MD [address] [place] [address] Primary Staff Physician Cardiology 07/30/18 Waist Cutter Relationship Specialty Start Date End Date Mandeep Houser DO [address] [place] [address] PCP - General Family Medicine 09/01/21 Galen Heaton MD [address] [place] [address] Primary Staff Physician Cardiology 07/30/18 Thuy Aguirre, ATHLETIC SCOUT.GEOPHYSICS SCIENTIST [address] [place] [address] Cardiology 09/05/23 Waist Cutter Relationship Specialty Start Date End Date Mandeep Houser DO [address] [place] [address] PCP - General Family Medicine 09/01/21 Galen Heaton MD [address] [place] [address] Primary Staff Physician Cardiology 07/30/18 Thuy Aguirre, ATHLETIC SCOUT.GEOPHYSICS SCIENTIST [address] [place] [address] Cardiology 09/05/23 Waist Cutter Relationship Specialty Start Date End Date Mandeep Houser DO [address] [place] [address] PCP - General Family Medicine 09/01/21 Galen Heaton MD [address] [place] [address] Primary Staff Physician Cardiology 07/30/18 Thuy Aguirre, ATHLETIC SCOUT.GEOPHYSICS SCIENTIST [address] [place] [address] Cardiology 09/05/23 Waist Cutter Relationship Specialty Start Date End Date Mandeep Houser DO [address] [place] [address] PCP - General Family Medicine 09/01/21 Galen Heaton MD [address] [place] [address] Primary Staff Physician Cardiology 07/30/18 Thuy Aguirre, ATHLETIC SCOUT.GEOPHYSICS SCIENTIST [address] [place] [address] Cardiology 09/05/23 Waist Cutter Relationship Specialty Start Date End Date Mandeep Houser DO [address] [place] [address] PCP - General Family Medicine 09/01/21 Galen Heaton MD [address] [place] [address] Primary Staff Physician Cardiology 07/30/18 Thuy Aguirre, ATHLETIC SCOUT.GEOPHYSICS SCIENTIST [address] [place] [address] Cardiology 09/05/23 Rupali Nascimento, ATHLETIC SCOUT.GEOPHYSICS SCIENTIST [address] [place] [address] Instructor Industrial Design Family Medicine 04/20/24 [facility], ATHLETIC SCOUT.GEOPHYSICS SCIENTIST [address] [place] [address] Instructor Industrial Design Family Medicine 04/20/24 Waist Cutter Relationship Specialty Start Date End Date Mandeep Houser DO [address] [place] [address] PCP - General Family Medicine 09/01/21 Galen Heaton MD [address] [place] [address] Primary Staff Physician Cardiology 07/30/18 Thuy Aguirre, ATHLETIC SCOUT.GEOPHYSICS SCIENTIST [address] [place] [address] Cardiology 09/05/23 Rupali Nascimento, ATHLETIC SCOUT.GEOPHYSICS SCIENTIST [address] [place] [address] Instructor Industrial Design Family Medicine 04/20/24 [facility], ATHLETIC SCOUT.GEOPHYSICS SCIENTIST [address] [place] [address] Instructor Industrial Design Family Medicine 04/20/24 Waist Cutter Relationship Specialty Start Date End Date Mandeep Houser DO [address] [place] [address] PCP - General Family Medicine 09/01/21 Galen Heaton MD [address] [place] [address] Primary Staff Physician Cardiology 07/30/18 Thuy Agiurre ATHLETIC SCOUT.GEOPHYSICS SCIENTIST [address] [place] [address] Cardiology 09/05/23 Rupali Nascimento ATHLETIC SCOUT.GEOPHYSICS SCIENTIST [address] [place] [address] Instructor Industrial Design Family Medicine 04/20/24 Alejandrina Harvey APRN.GEOPHYSICS SCIENTIST [address] [place] [address] Instructor Industrial Design Family Medicine 04/20/24 Waist Cutter Relationship Specialty Start Date End Date Mandeep Houser DO [address] [place] [address] PCP - General Family Medicine 09/01/21 Galen Heaton MD [address] [place] [address] Primary Staff Physician Cardiology 07/30/18 Thuy Aguirre ATHLETIC SCOUT.GEOPHYSICS SCIENTIST [address] [place] [address] Cardiology 09/05/23 Rupali Nascimento ATHLETIC SCOUT.GEOPHYSICS SCIENTIST [address] [place] [address] Instructor Industrial Design Family Medicine 04/20/24 Alejandrina Harvey ATHLETIC SCOUT.GEOPHYSICS SCIENTIST [address] [place] [address] Instructor Industrial Design Family Medicine 04/20/24 Waist Cutter Relationship Specialty Start Date End Date Mandeep Houser DO [address] [place] [address] PCP - General Family Medicine 09/01/21 Galen Heaton MD [address] [place] [address] Primary Staff Physician Cardiology 07/30/18 Thuy Aguirre, ATHLETIC SCOUT.GEOPHYSICS SCIENTIST [address] [place], [place] [id number] Cardiology 09/05/23 Rupali Nascimento, ATHLETIC SCOUT.GEOPHYSICS SCIENTIST [address] [place] [address] Instructor Industrial Design Family Medicine 04/20/24 Alejandrina Harvey, ATHLETIC SCOUT.GEOPHYSICS SCIENTIST [address] [place] [address] Instructor Industrial Design Family [facility] 04/20/24 Waist Cutter Relationship Specialty Start Date End Date Mandeep Houser DO [address] [place] [address] PCP - General Family Medicine 09/01/21 Galen Heaton MD [address] [place] [address] Primary Staff Physician Cardiology 07/30/18 Thuy Aguirre, ATHLETIC SCOUT.GEOPHYSICS SCIENTIST [address] [place], [place] [id number] Cardiology 09/05/23 Rupali Nascimento, ATHLETIC SCOUT.GEOPHYSICS SCIENTIST [address] [place] [address] [facility] 04/20/24 Alejandrina Harvey, ATHLETIC SCOUT.GEOPHYSICS SCIENTIST [address] [place] [address] [facility] 04/20/24 Waist Cutter Relationship Specialty Start Date End Date Mandeep Houser DO [address] [place] [address] PCP - General Family Medicine 09/01/21 Galen Heaton MD [address] [place], [place] [address] Primary Staff Physician Cardiology 07/30/18 Thuy Aguirre, ATHLETIC SCOUT.GEOPHYSICS SCIENTIST [address] [place], [place] [id number] Cardiology 09/05/23 Rupali Nascimento, ATHLETIC SCOUT.GEOPHYSICS SCIENTIST [address] [place] [address] [facility] 04/20/24 Alejandrina Harvey, ATHLETIC SCOUT.GEOPHYSICS SCIENTIST [address] [place] [address] [facility] 04/20/24 Waist Cutter Relationship Specialty Start Date End Date Mandeep Houser DO [address] [place] [address] PCP - General Family Medicine 09/01/21 Galen Heaton MD [address] [place], [place] [address] Primary Staff Physician Cardiology 07/30/18 Thuy Aguirre, ATHLETIC SCOUT.GEOPHYSICS SCIENTIST [address] [place] [address] Cardiology 09/05/23 Alejandrina Harvey, ATHLETIC SCOUT.GEOPHYSICS SCIENTIST [address] [place] [address] [facility] 04/20/24 Waist Cutter Relationship Specialty Start Date End Date Mandeep Houser DO [address] [place] [address] PCP - General Family Medicine 09/01/21 Galen Heaton MD [address] [place] [address] Primary Staff Physician Cardiology 07/30/18 Thuy Aguirre, ATHLETIC SCOUT.GEOPHYSICS SCIENTIST [address] [place] [address] Cardiology 09/05/23 Alejandrina Harvey, ATHLETIC SCOUT.GEOPHYSICS SCIENTIST [address] [place] [address] [facility] 04/20/24 Waist Cutter Relationship Specialty Start Date End Date Mandeep Houser DO [address] [place] [address] PCP - General Family Medicine 09/01/21 Galen Heaton MD [address] [place] [address] Primary Staff Physician Cardiology 07/30/18 Thuy Aguirre ATHLETIC SCOUT.GEOPHYSICS SCIENTIST [address] [place] [address] Cardiology 09/05/23 Alejandrina Harvey, ATHLETIC SCOUT.GEOPHYSICS SCIENTIST [address] [place] [address] Instructor Industrial Design Family Medicine 04/20/24 Waist Cutter Relationship Specialty Start Date End Date Mandeep Houser DO [address] [place] [address] PCP - General Family Medicine 09/01/21 Galen Heaton MD [address] [place] [address] Primary Staff Physician Cardiology 07/30/18 Thuy Aguirre, ATHLETIC SCOUT.GEOPHYSICS SCIENTIST [address] [place], [place] [id number] Cardiology 09/05/23 Alejandrina Harvey, ATHLETIC SCOUT.GEOPHYSICS SCIENTIST [address] [place] [address] Instructor Industrial Design [facility] 04/20/24 Waist Cutter Relationship Specialty Start Date End Date Mandeep Houser DO [address] [place] [address] PCP - General Family Medicine 09/01/21 Galen Heaton MD [address] [place] [address] Primary Staff Physician Cardiology 07/30/18 Thuy Aguirre, ATHLETIC SCOUT.GEOPHYSICS SCIENTIST [address] [place], [place] [id number] Cardiology 09/05/23 Alejandrina Harvey, ATHLETIC SCOUT.GEOPHYSICS SCIENTIST [address] [place] [address] Instructor Industrial Design Family Medicine 04/20/24 Waist Cutter Relationship Specialty Start Date End Date Mandeep Houser DO [address] [place] [address] PCP - General Family Medicine 09/01/21 Galen Heaton MD [address] [place] [address] Primary Staff Physician Cardiology 07/30/18 Thuy Aguirre, ATHLETIC SCOUT.GEOPHYSICS SCIENTIST [address] [place], [place] [id number] Cardiology 09/05/23 Alejandrina Harvey, ATHLETIC SCOUT.GEOPHYSICS SCIENTIST [facility] [place] [address] Instructor Industrial Design Family Medicine 04/20/24 Brittani Yap, ATHLETIC SCOUT.GEOPHYSICS SCIENTIST [facility] [place] [address] Instructor Industrial Design Family Medicine 10/27/24 Waist Cutter Relationship Specialty Start Date End Date Mandeep Houser DO [address] [place] [address] PCP - General Family Medicine 09/01/21 Galen Heaton MD [address] [place] [address] Primary Staff Physician Cardiology 07/30/18 Thuy Aguirre ATHLETIC SCOUT.GEOPHYSICS SCIENTIST [address] [place], [place] [id number] Cardiology 09/05/23 Alejandrina aHrvey, ATHLETIC SCOUT.GEOPHYSICS SCIENTIST [address] [place] [address] Instructor Industrial Design Family Medicine 04/20/24 Brittani Yap, ATHLETIC SCOUT.GEOPHYSICS SCIENTIST [address] [place], [place] [address] [facility] 10/27/24 Waist Cutter Relationship Specialty Start Date End Date Mandeep Houser DO [address] [place] [address] PCP - General Family Medicine 09/01/21 Galen Heaton MD [address] [place] [address] Primary Staff Physician Cardiology 07/30/18 Thuy Aguirre, ATHLETIC SCOUT.GEOPHYSICS SCIENTIST [address], [place] [id number] Cardiology 09/05/23 Alejandrina Harvey, ATHLETIC SCOUT.GEOPHYSICS SCIENTIST [address] [place] [address] [facility] 04/20/24 Brittani Yap, ATHLETIC SCOUT.GEOPHYSICS SCIENTIST [address] [place], [place] [id number] [facility] 10/27/24 Team Status: Active Member Role/Relationship Status [...] BE BASED ON THE PRIMARY CLINICAL RECORDS. [facility]. provides no warranty or guarantee of the accuracy or completeness of information in this document.
--- OUTSIDE RECORDS SUMMARY | 2024-11-14 05:16 | XMS RPT_ITS | CCD ---
Author Organization [facility] Care Team Providers Care Central Sterile Technician Name Role Phone Rafael Frankolphus Unavailable Unavailab [...] Mandeep Houser DO Primary Care Provider Timothy TONGN.STRATEGIC BUYER, Thuy Serrato Unavailable FLACA GREENFIELD Attending Unavailable HOUSER, MANDEEP L [...] Maycol Valladares MD Primary Care Provider [phone] Azam BUSINESS STRATEGY MANAGER.STRATEGIC BUYER, Rupali Adelina Unavailable Yasir BUSINESS STRATEGY MANAGER.STRATEGIC BUYER, Alejandrina Unavailable ZAINAB, CH Referring Unavailable Houser, [...] Care Unavailable ZAINAB, CH Attending Unavailable Marely BUSINESS STRATEGY MANAGER.STRATEGIC BUYER, Brittani Ji Unavailable [phone] HOUSER, MANDEEP [...] (2 sources) amLODIPine Drug Allergy [address] [facility] Amoxicillin / Clavulanate (2 sources) Amoxicillin / Clavulanate Drug Allergy 3 GI Upset [facility] HMG-CoA Reductase Inhibitors (statins) (2 sources) atorvastatin Drug Allergy [address] [facility] Opioid Agonists (2 sources) Codeine Drug Allergy 3 Mental Status Change [facility] Work Phone: Sulfonamides (antibiotic) (2 sources) Sulfonamides (Antibiotic) Drug Allergy [address] [facility] (20 sources) amLODIPine; Translations: [AMLODIPINE] Drug Allergy 0 Other: See Comments, Intolerance [facility] (2 sources) Amoxicillin / Clavulanate Drug Allergy [facility] Work Phone: (20 sources) Codeine; Translations: [CODEINE] Drug Allergy 3 Dizziness, Mental Status Change [facility] Work Phone: (2 sources) Sulfonamides (Antibiotic) Allergy to drug (finding) Headache [facility] Work Phone: (20 sources) Amoxicillin / Clavulanate; Translations: [AMOXICILLIN-POT CLAVULANATE] Drug Allergy 3 GI Upset [facility] (20 sources) Angiotensin-conve rting enzyme inhibitor agent; Translations: [EMILIO INHIBITORS] Drug Allergy 0 Other: See Comments [facility] (20 sources) atorvastatin; Translations: [ATORVASTATIN] Drug Allergy [address] [facility] (20 sources) beta-Blocking agent; Translations: [BETA-BLOCKERS (BETA-ADRENERGIC BLOCKING AGTS)] Drug Allergy 0 Other: See Comments [facility] (20 sources) Sulfonamides (Antibiotic); Translations: [SULFA (SULFONAMIDE ANTIBIOTICS)] Drug Allergy 0 Other: See Comments, Intolerance [facility] (20 sources) Angiotensin-conve rting enzyme inhibitor agent Drug Allergy 0 Other: See Comments, Intolerance [facility] (20 sources) beta-Blocking agent Drug Allergy 0 Other: See Comments, Intolerance [facility] (20 sources) sacubitril / valsartan; Translations: [SACUBITRIL-VALSA RTAN] Drug Allergy [address] [facility] (1 source) Amoxicillin Drug Allergy 4 [facility] Repository (1 source) Clavulanate Drug Allergy 4 [facility] Repository (1 source) Amoxicillin Drug Allergy 5 PT UNSURE OF REACTION [facility] (1 source) Clavulanate Drug Allergy 5 PT UNSURE OF REACTION [facility] Medications Current Medications Medication Drug Class(es) [...] as needed. Take 2 tablets by mo [facility] every 8 hours as needed for [...] on above: Take 1 capsule by mo [facility] three times daily as needed for [...] 1 tablet by jc th once daily. Wolf-3 Fatty Acids-Vitamin E (FISH OIL) 1,000 mg cap (1 source) End: 04-30-20 take 1 capsule by mouth once daily Wolf-3 Fatty Acids-Vitamin E (FISH OIL) 1,000 mg cap Take 1 capsule by mouth once daily. 0 04/30/2020 Discontinued Comment on above: Take 1 capsule by mo [facility] once daily. omeprazole 20 mg delayed [...] End: 07-13-2023 [facility]O [facility] 0 07/13/2023 Discontinued OREGANO [...] mg tablet Indications: Coronary artery disease involving [place] coronary artery of [place] heart with other form of angina pectoris [...] Coronary atherosclerosis; Translations: [Atherosclerotic heart disease of [place] coronary artery with other forms of angina [...] 08-02-2022 Chronic Other aftercare (1 source) Other nursing home (current) drug therapy; Translations: [Medication management] Onset: [...] Auto (Unsp spec) [#/Vol] 2.58 10*3/uL 0.83-4.51 [facility] Absolute neutrophil countOrd ered By: Jose Goldberg on 11-13-2024 Neutrophils (Bld) [#/Vol] 5.9 10*3/uL 2.0-7.7 [facility] Anion gap in Serum or Plasma Ordered By: Jose Goldberg on 11-13-2024 Anion gap [Moles/Vol] 12 mmol/L 5-15 [facility] Automated lymphocyte count a s percentage of total leukocytesOrdered By: Jose Goldberg on 11-13-2024 Lymphocytes/100 WBC Auto (Unsp spec) 26.8 % 19-41 [facility] BUN/creatinine ratioOrdered By: Jose Goldberg on 11-13-2024 Urea nitrogen/Creatinine [Mass ratio] 22.8 mg/mg High 10-20 [facility] Basophil percentageOrdered B y: Jose Goldberg on 11-13-2024 Basophils/100 WBC (Bld) 1.0 % 0-1 [facility] Bilirubin Test strip Ql (U)O rdered By: Jose Goldberg on 11-13-2024 Bilirubin Ql (U) Negative Negative [facility] CBC + diff autoon 11-13-2024 CBC W Auto Differential panel (Bld) [facility] Carbon dioxide, total [Moles /volume] in Central venous bloodOrdered By: Jose Goldberg on 11-13-2024 CO2 [Moles/Vol] 20.2 mmol/L Low 21.0-32.0 [facility] Chloride assayOrdered By: Skyla Goldberg on 11-13-2024 Chloride [Moles/Vol] 107 mmol/L 98-108 [facility] Eosinophil percentageOrdered By: Jose Goldberg on 11-13-2024 Eosinophils/100 WBC (Bld) 1.3 % 0-5 [facility] Erythrocyte distribution wid th ratioOrdered By: Jose Goldberg on 11-13-2024 Erythrocyte distribution width (RBC) [Ratio] 13.8 % 11.6-14.6 [facility] Erythrocyte distribution wid th standard deviationOrdered By: Jose Goldberg on 11-13-2024 Erythrocyte distribution width (RBC) [Ratio] 45.6 fl High 35.1-43.9 [facility] Glomerular filtration rate ( GFR) estimation/1.73 sq m using serum, plasma, or whole bOrdered By: Jose Goldberg on 11-13-2024 GFR/1.73 sq M.predicted among non-blacks MDRD (S/P/Bld) [Vol rate/Area] 61 mL/min/{1.73_m2} >60 [facility] Comment on above: mL/min/1.73m2 CKD-EP I Creatinine Equation (2020) Hematocrit Auto (Bld) [Volum e fraction]Ordered By: Jose Goldberg on 11-13-2024 Hematocrit (Bld) [Volume fraction] 37.5 % 37-47 [facility] Hemoglobin measurementOrdere d By: Jose Goldberg on 11-13-2024 Hemoglobin (Bld) [Mass/Vol] 12.1 g/dL 12.0-15.0 [facility] Immature granulocytes/100 WB C Auto (Bld)Ordered By: Jose Goldberg on 11-13-2024 Immature granulocytes/100 WBC (Bld) 0.700 % 0.0-0.9 [facility] Comment on above: IG% - Immature Granu locytes (promyelocytes, myelocytes and metamyelocytes) > 1% indicates that a LEFT SHIFT is Present. Ketones Test strip Ql (U)Ord ered By: Jose Goldberg on 11-13-2024 Ketones Ql (U) Negative Negative [facility] MCV (mean corpuscular volume ) determinationOrdered By: Jose Goldberg on 11-13-2024 MCV (RBC) [Entitic vol] 90.1 fL 81-99 [facility] Mean corpuscular hemoglobin (MCH) determinationOrdered By: Jose Goldberg on 11-13-2024 MCH (RBC) [Entitic mass] 29.1 pg 27.0-32.0 [facility] Mean corpuscular hemoglobin concentration (MCHC) determinationOrdered By: Jose Goldberg on 11-13-2024 MCHC (RBC) [Mass/Vol] 32.3 g/dL 32-36 [facility] Mean platelet volume determi nationOrdered By: Jose Goldberg on 11-13-2024 Platelet mean volume (Bld) [Entitic vol] 9.7 fL 6.2-12.0 [facility] Microscopic analysis of urin e for red blood cells (RBC)Ordered By: Jose Goldberg on 11-13-2024 Microscopic analysis of urine for red blood cells (RBC) 0 SEEN /hpf 0-5 [facility] Monocyte percentageOrdered B y: Jose Goldberg on 11-13-2024 Monocytes/100 WBC (Bld) 8.8 % 0-10 [facility] Mucus LM Ql (Urine sed)Order ed By: Jose Goldberg on 11-13-2024 Mucus Ql (Urine sed) 0 SEEN /hpf [facility] Neutrophil percentageOrdered By: Jose Goldberg on 11-13-2024 Neutrophils/100 WBC (Bld) 61.4 % 47-70 [facility] Nitrite Test strip Ql (U)Ord ered By: Jose Goldberg on 11-13-2024 Nitrite Ql (U) Negative Negative [facility] Nucleated red blood cell per centageOrdered By: Jose Goldberg on 11-13-2024 Nucleated RBC/100 WBC (Bld) [Ratio] 0 % 0-5 [facility] Platelet countOrdered By: Skyla Goldberg on 11-13-2024 Platelets (Bld) [#/Vol] 295 10*3/uL 150-450 [facility] Potassium measurement (mass/ volume)Ordered By: Jose Goldberg on 11-13-2024 Potassium (Unsp spec) [Mass/Vol] 4.3 mmol/L 3.3-5.1 [facility] Comment on above: Hemolysis present, R esults could be affected. Protein Test strip Ql (U)Ord ered By: Jose Goldberg on 11-13-2024 Protein Ql (U) 15 mg/dl High Negative [facility] RBC Auto (Bld) [#/Vol]Ordere d By: Jose Goldberg on 11-13-2024 RBC (Bld) [#/Vol] 4.16 10*6/uL Low 4.2-5.4 [facility] Serum creatinine measurement (mass/volume)Ordered By: Jose Goldberg on 11-13-2024 Creatinine [Mass/Vol] 0.96 mg/dL 0.70-1.20 [facility] Serum glucose measurement (m ass/volume)Ordered By: Jose Goldberg on 11-13-2024 Glucose [Mass/Vol] 122 mg/dL High 70-99 [facility] Serum or plasma calcium franklin urement (mass/volume)Ordered By: Jose Goldberg on 11-13-2024 Calcium [Mass/Vol] 9.3 mg/dL 7.6-11.0 [facility] Serum or plasma urea nitroge n measurement (mass/volume)Ordered By: Jose Goldberg on 11-13-2024 Urea nitrogen [Mass/Vol] 22 mg/dL High 4-19 [facility] Sodium levelOrdered By: Jermaine Goldberg on 11-13-2024 Sodium [Moles/Vol] 139 mmol/L 133-145 [facility] Squamous epithelial cells de tection in urine sediment by light microscopyOrdered By: Jose Goldberg on 11-13-2024 Epithelial cells.squamous LM Ql (Urine sed) 5-10 SEEN /hpf 5-10 [facility] Urine clarityOrdered By: Inna Goldberg on 11-13-2024 Clarity (U) Clear Clear [facility] Urine color determinationOrd ered By: Jose Goldberg on 11-13-2024 Color (U) Yellow Yellow [facility] Urine glucose detectionOrder ed By: Jose Goldberg on 11-13-2024 Glucose Ql (U) Normal mg/dl Normal [facility] Urine leukocyte esterase det ection by dipstickOrdered By: Jose Goldberg on 11-13-2024 Leukocyte esterase Test strip Ql (U) Negative Negative [facility] Urine pHOrdered By: Jose Goldberg on 11-13-2024 pH (U) 6.5 [pH] 5.0 - 8.0 [facility] Urine sediment bacteria coun t by microscopy (number/high power field)Ordered By: Jose Goldberg on 11-13-2024 Bacteria LM.HPF (Urine sed) [#/Area] RARE /hpf None Seen [facility] Urine specific gravity measu rementOrdered By: Jose Goldberg on 11-13-2024 Specific gravity (U) [Rel density] 1.010 1.002-1.030 [facility] Urine urobilinogen measureme ntOrdered By: Jose Goldberg on 11-13-2024 Urobilinogen Ql (U) Normal mg/dl Normal [facility] White blood cell (WBC) count Ordered By: Jose Goldberg on 11-13-2024 WBC (Bld) [#/Vol] 9.6 10*3/uL 4.4-11.0 [facility] White blood cell countOrdere d By: Jose Goldberg on 11-13-2024 White blood cell count 0-5 SEEN /hpf 0-5 [facility] ECG COMPLETEon 11-04-2024 Atrial Rate [address] [facility] Calculated P [place] 16 degrees [facility] Calculated R [place] -81 degrees [facility] Calculated T [place] 24 degrees [facility] P-R Interval [address] [facility] QRS Duration [address] [facility] QT Interval [address] [facility] QTC Calculation (Bazett) [address] [facility] Ventricular Rate 63 BPM [facility] ATRIAL-SENSED VENTRICULAR-PACED RHYTHM WITH OCCASIONAL SINUS COMPLEXES ABNORMAL ECG Confirmed by GREGORIA MERCADO MD ([id number]) on 11/04/2024 1:01:22 PM [facility] NAME : SANDRA SCHMITZ PID : [id number] : 1945 Gender : Female Race : ORD : [id number] Procedure Date : Nov 03 2024 14:14:06 Edit Date : Nov 04 2024 13:01:29 Diagnosis: ATRIAL-SENSED VENTRICULAR-PACED RHYTHM WITH OCCASIONAL SINUS COMPLEXES ABNORMAL ECG Confirmed by GREGORIA MERCADO MD ([id number]) on 11/04/2024 1:01:22 PM Test Reason : I42.8 Nonischemic cardiomyopathy (HCC) [facility] Overread By : GREGORIA MERCADO MD Edited By : GREGORIA MERCADO MD Referred By : DEANN Acquired by : LISANDRO, [facility] CNOVon 11-03-2024 CNOV Office Visit (CARDFV ) ----- SANDRA SCHMITZ ([id number]) 1945 F Date Time Provider Department 11/03/24 3:45 PM HOLTER/EVENT MONITOR EDENILSON WALLACE During your visit today, we recorded the following information about you: Dilcia Hooks MA 11/03/2024 3:58 PM Signed EVENT MONITOR DISPOSABLE PATCH INSTRUCTIONS Patient Name: Sandra Schmitz [facility] Number: [id number] Skin prepped and cleansed with alcohol Patch secured to prepped area Monitor Activated Serial #: [id number] Patient Instructed: Prescribed order timeframe Bathing guidelines Usage of event button and diary documentation Return of monitor at the end of prescribed order Call with problems [phone] or [phone]. [phone] Patient expresses a good understanding of instructions [...] Assessed Primary Visit Diagnosis:Cardiac resynchronization therapy defibrillator (AUTOMATION TECH-D) in place [Z95.810] Prescriptions as of 11/03/2024 [...] right [M19.071] 08/02/2022 Coronary artery disease involving [place] lopez*08/02/2022 Vitamin D deficiency [E55.9] 08/02/2022 Somatic dysfunction of head region [M99.00] 08/10/2022 Chronic neck pain [M54.2, G89.29] 08/24/2022 Chronic bronchitis (HCC) [J42] 09/11/2022 SVT (supraventricular tachycardia) (HCC) [I47.1*09/11/2022 Combined systolic and diastoli (more content not included)... Normal [facility] CNOV Office Visit (CACHFV ) ----- SANDRA SCHMITZ ([id number]) 1945 F Date Time Provider Department 11/03/24 [...] and weight daily. Please notify us via [employer] if your Systolic BP (top number) < [...] heart kidney injury risk Please send a [employer] message or call with any questions or concerns: Outpatient Number: [phone] Thank you, Pili Wells MD Advanced Heart Failure and [place] [address] For [facility] patients , contact: [facility] For Heart Failure- Section Of Heart Failure and Cardiac Transplant Medicine Heart [facility] Vascular [facility] - Desk [phone] Nurse Line and for Refills- call [phone] [facility] Scheduling Line- to make appointments- call [phone] Pili Wells MD 11/09/2024 5:30 PM Signed [facility] For Heart Failure SECTION OF HEART FAILURE and CARDIAC TRANSPLANT MEDICINE [facility] OUTPATIENT VISIT DATE November 03, 2024 OUTPATIENT VISIT TYPE Established PRIMARY CARE PHYSICIAN: Mandeep Houser [address] [place] [address] CHIEF COMPLAINT: Follow Up HISTORY OF PRESENT ILLNESS: Sandra Schmitz is a 78 year old female with a medical history that includes non-ischemic CM, HTN, Hypothyroidism, LBBB s/p AUTOMATION TECH-D who is referred to me for heart failure management. Sandra Schmitz was initially diagnosed with non-ischemic CM ~ 4 yrs ago and was doing well on losartan and metoprolol. She had progressive sxs of dyspnea on exertion, therefore she was started on entresto and farxiga and her sxs persisted and she was admitted locally in [place] and then transferred to for AUTOMATION TECH consideration. Interval History: Sandra Schmitz was last [...] LVEF 40%, LVEdd 4.8cm. LBBB: chronic. S/p AUTOMATION TECH 07/2023 Non-obstructive CAD: stable, ischemic testing recently [...] CHF (c (more content not included)... Normal [facility] CNOV Office Visit (CARDFV ) ----- SANDRA SCHMITZ ([id number]) 1945 F Date Time Provider Department 11/03/24 3:30 PM MORENITA [facility] During your visit today, we recorded the following information about you: Pulse Blood pressure Weight Height 70/minute 119/71 86.2 kg 1.626 m Morenita Hill APRN.STRATEGIC BUYER 11/03/2024 3:59 PM Signed [facility] Department of Cardiovascular Medicine SECTION OF ELECTROPHYSIOLOGY AND PACING OUTPATIENT VISIT DATE November 03, 2024 OUTPATIENT VISIT TYPE ESTABLISHED PRIMARY CARE PHYSICIAN: Mandeep Houser [address] [place] [address] CHIEF COMPLAINT: Follow Up HISTORY OF PRESENT ILLNESS: Ms. Schmitz is a 79 year old female, patient of Dr. Wellington and Dr. Wells who presents today for a cardiovascular medicine follow-up visit regarding AUTOMATION TECH-D which was placed in July of last year during which time she had been admitted to [facility] for acute HFrEF and inability to initiate GDMT. She was deemed excellent candidate for AUTOMATION TECH therapy and thus had MDT AUTOMATION TECH-D inserted. Since then, Ms. Schmitz reports that overall she has been feeling well. She has noted over the last several months that when shh is anxious or rushing, she may feel her heart racing with some palpitations. When she rests, symptoms resolve. Overall, since device insertion, she has significantly improved functional capacity. She is compliant with all medications. PMH: Chronic NICM s/p MDT AUTOMATION TECH-D, dyslipidemia, hypothyroidism, Factor V Leiden, IBS, h/o gout PAST MEDICAL HISTORY Diagnosis Date Acute acalculous cholecystitis 05/30/2020 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 09/22/2020 Acute on chronic systolic CHF (congestive heart failure) ([facility]) 05/03/2020 Aspiration pneumonia ([facility]) 05/30/2020 Chest pain 05/03/2020 Chest pressure 01/23/2013 Chronic diastolic congestive heart failure ([facility]) 02/14/2021 Clostridium difficile diarrhea 09/28/2020 Complete uterovaginal prolapse Cystocele, midline Essential hypertension 06/14/2020 Homozygous Factor V Leiden mutation ([facility]) 05/03/2020 Hypothyroidism IBS (irritable bowel syndrome) 01/23/2013 [...] once daily (more content not included)... Normal [facility] ECG COMPLETEon 11-03-2024 ECG COMPLETE Ventricular Rate : 5 6 BPM Atrial Rate : 56 BPM P-R Interval : 122 ms QRS Duration : 124 ms Q-T Interval : 478 ms QTC Calculation(Bazett) : 461 ms Calculated P [place] : 36 degrees Calculated R [place] : -50 degrees Calculated T [place] : 89 degrees ATRIAL-SENSED VENTRICULAR-PACED RHYTHM ABNORMAL ECG Confirmed by GREGORIA MERCADO MD ([id number]) on 11/04/2024 1:01:15 PM NAME : SANDRA SCHMITZ PID : [id number] : 1945 Gender : Female Race : ORD : [id number] Procedure Date : Nov 03 2024 15:09:38 Edit Date : Nov 04 2024 13:01:17 Diagnosis: ATRIAL-SENSED VENTRICULAR-PACED RHYTHM ABNORMAL ECG Confirmed by GREGORIA MERCADO MD ([id number]) on 11/04/2024 1:01:15 PM Test Reason : Z95.810 Cardiac resynchronization therapy defibrillator (AUTOMATION TECH-D) in place Location : 225 : [facility] Overread By : GREGORIA MERCADO MD Edited By : GREGORIA MERCADO MD Referred By : JERED Acquired by : Terrie GRANT [facility] ECG COMPLETE Ventricular Rate : 6 3 BPM Atrial Rate : 63 BPM P-R Interval : 118 ms QRS Duration : 118 ms Q-T Interval : 452 ms QTC Calculation(Bazett) : 462 ms Calculated P [place] : 16 degrees Calculated R [place] : -81 degrees Calculated T [place] : 24 degrees ATRIAL-SENSED VENTRICULAR-PACED RHYTHM WITH OCCASIONAL SINUS COMPLEXES ABNORMAL ECG Confirmed by GREGORIA MERCADO MD ([id number]) on 11/04/2024 1:01:22 PM NAME : SANDRA SCHMITZ PID : [id number] : 1945 Gender : Female Race : ORD : [id number] Procedure Date : Nov 03 2024 14:14:06 [...] : DEANN Acquired by : Terrie MCMAHON [facility] CNOVon 10-21-2024 CNOV Office Visit (FAMPWS ) ----- SANDRA SCHMITZ ([id number]) 1945 F Date Time Provider Department 10/21/24 [...] on chronic systolic CHF (congestive heart failure) ([facility]) 05/03/2020 Aspiration pneumonia ([facility]) 05/30/2020 Chest pain 05/03/2020 Chest pressure 01/23/2013 Chronic diastolic congestive heart failure ([facility]) 02/14/2021 Clostridium difficile diarrhea 09/28/2020 Complete uterovaginal prolapse Cystocele, midline Essential hypertension 06/14/2020 Homozygous Factor V Leiden mutation ([facility]) 05/03/2020 Hypothyroidism IBS (irritable bowel syndrome) 01/23/2013 [...] without drainage, (more content not included)... Normal [facility] CNOVon 09-30-2024 CNOV Office Visit (FAMPWS ) ----- SANDRA SCHMITZ ([id number]) 1945 F Date Time Provider Department 09/30/24 [...] on chronic systolic CHF (congestive heart failure) ([facility]) 05/03/2020 Aspiration pneumonia ([facility]) 05/30/2020 Chest pain 05/03/2020 Chest pressure 01/23/2013 Chronic diastolic congestive heart failure ([facility]) 02/14/2021 Clostridium difficile diarrhea 09/28/2020 Complete uterovaginal prolapse Cystocele, midline Essential hypertension 06/14/2020 Homozygous Factor V Leiden mutation ([facility]) 05/03/2020 Hypothyroidism IBS (irritable bowel syndrome) 01/23/2013 [...] Left poste (more content not included)... Normal [facility] CNPNon 08-27-2024 CNPN Telephone ([facility]) ----- SANDRA SCHMITZ ([id number]) 1945 F Date Time Provider Department 08/27/24 DILCIA PEARSON [facility] During your visit today, we recorded the following information about you: Radha Buchanan 08/27/2024 10:21 AM Signed ----- Message from Dilcia Bonilla MD sent at 08/23/2024 9:30 AM EDT ----- I saw her in '24 Please reschedule with Mercedes + device Radha Buchanan 08/27/2024 10:22 AM Signed Call to patient to r/s. Patient is driving out from [place] and would prefer all appointments same day [...] right [M19.071] 08/02/2022 Coronary artery disease involving [place] lopez*08/02/2022 Vitamin D deficiency [E55.9] 08/02/2022 Somatic [...] (HCC) [J96.01]07/13/19 (more content not included)... Normal [facility] CNOVon 08-25-2024 CNOV Office Visit (FAMPWS ) ----- SANDRA SCHMITZ ([id number]) 1945 F Date Time Provider Department 08/25/24 [...] on chronic systolic CHF (congestive heart failure) ([facility]) 05/03/2020 Aspiration pneumonia ([facility]) 05/30/2020 Chest pain 05/03/2020 Chest pressure 01/23/2013 Chronic diastolic congestive heart failure ([facility]) 02/14/2021 Clostridium difficile diarrhea 09/28/2020 Complete uterovaginal prolapse Cystocele, midline Essential hypertension 06/14/2020 Homozygous Factor V Leiden mutation ([facility]) 05/03/2020 Hypothyroidism IBS (irritable bowel syndrome) 01/23/2013 [...] cervical L (more content not included)... Normal [facility] ECHOon 08-15-2024 Echocardiography Echocardiography Rep ort: Transthoracic Echo [facility] Date of service: 08/15/2024 12:49:59 PM STITCHER Ordering physician: ANGEL CASTRO Indication: NICM Technologist: Teagan Murillo [facility] Interpreting physician: Gilmer Carpio MD PATIENT: [...] * * Final * * * CC [employer] Image : [id number] Normal [facility] CNOVon 08-04-2024 CNOV Office Visit (FAMPWS ) ----- SANDRA SCHMITZ ([id number]) 1945 F Date Time Provider Department 08/04/24 2:00 PM [facility] your visit today, we recorded [...] L1-2NRrSBr left (more content not included)... Normal [facility] CNOVon 07-21-2024 CNOV Office Visit (FAMPWS ) ----- SANDRA SCHMITZ ([id number]) 1945 F Date Time Provider Department 07/21/24 [...] October Would like to have her medical silver buffer more local for better accessibility She had labs and a chest xray Currently Cough, chest congestion, symptoms are improved. Just still with some fatigue but seems to be getting better. No further cough, no sputum production, no fevers or chills. Heart failure. Has an echo to get scheduled and completed for the silver buffer, taking her medications as prescribed. PAST MEDICAL HISTORY Diagnosis Date Acute acalculous cholecystitis 05/30/2020 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 09/22/2020 Acute on chronic systolic CHF (congestive heart failure) ([facility]) 05/03/2020 Aspiration pneumonia ([facility]) 05/30/2020 Chest pain 05/03/2020 Chest pressure 01/23/2013 [...] tobacco: Never (more content not included)... Normal [facility] 25(OH)D3 SerPl-mCncon 2024 25-hydroxyvitamin D3 [Mass/Vol] 26.0 ng/mL Low 31.0-80.0 [facility] Comment on above: Order Comment: Speci men Type: BLOOD SPECIMENOrdering Facility: [facility] Address: [address] [place] [address] Performed By: #### 1 989-3 ####[facility] LABIA [id number] [address] [place] Bacteria Ur Culton Bacteria identified Cx Nom (U) ORGANISM ID: 1 50,000-<100,000 CFU/ml Normal urogenital kash Normal [facility] Comment on above: Performed By: #### 6 30-4 ####[facility] LABCLIA [id number] [address] [place] CBC W Auto Differential pane l (Bld)on 07-08-2024 Basophils (Bld) [#/Vol] 0.12 10*3/uL High [facility] Basophils/100 WBC (Bld) 1.4 % [facility] Differential cell count method Nom (Bld) Auto [facility] Eosinophils (Bld) [#/Vol] 0.16 10*3/uL [facility] Eosinophils/100 WBC (Bld) 1.8 % [facility] Erythrocyte distribution width (RBC) [Ratio] 14.5 % 11.5 - 15.0 % [facility] Hematocrit (Bld) [Volume fraction] 43.4 % 36.0 - 46.0 % [facility] Hemoglobin (Bld) [Mass/Vol] 13.6 g/dL 11.5 - 15.5 g/dL [facility] Immature granulocytes (Bld) [#/Vol] 0.08 10*3/uL [facility] Immature granulocytes/100 WBC (Bld) 0.9 % [facility] Interpretation and review of laboratory results Abnormal [facility] Lymphocytes (Bld) [#/Vol] 3.59 10*3/uL [facility] Lymphocytes/100 WBC (Bld) 40.5 % [facility] MCH (RBC) [Entitic mass] 28.7 pg 26.0 - 34.[address] [facility] MCHC (RBC) [Mass/Vol] 31.3 g/dL 30.5 - 36.0 g/dL [facility] MCV (RBC) [Entitic vol] 91.6 fL 80.0 - 100.[address] [facility] Monocytes (Bld) [#/Vol] 0.81 10*3/uL NINF [facility] Monocytes/100 WBC (Bld) 9.1 % [facility] Neutrophils (Bld) [#/Vol] 4.11 10*3/uL [facility] Neutrophils/100 WBC (Bld) 46.3 % [facility] Nucleated RBC (Bld) [#/Vol] NINF [facility] Nucleated RBC/100 WBC (Bld) [Ratio] 0 % /[address] [facility] Platelet mean volume (Bld) [Entitic vol] 10.7 fL 9.0 - 12.[address] [facility] Platelets (Bld) [#/Vol] 430 10*3/uL High [facility] RBC (Bld) [#/Vol] 4.74 10*6/uL 3.90 - 5.2 0 m/uL [facility] WBC (Bld) [#/Vol] 8.87 10*3/uL [facility] Basophils (Bld) [#/Vol] 0.12 10*3/uL High <0.11 [facility] Comment on above: Order Comment: Speci men Type: BLOOD SPECIMENOrdering Facility: [facility] Address: [address] [place] [address] Performed By: #### 5 7021-8 ####[facility] LABORATORYCLIA [id number] [address] STATES OF [facility] Basophils/100 WBC (Bld) 1.4 % Normal [facility] Comment on above: Order Comment: Speci men Type: BLOOD SPECIMENOrdering Facility: [facility] Address: [address] [place] [address] Performed By: #### 5 7021-8 ####[facility] LABORATORYCLIA [id number] [address] Differential cell count method Nom (Bld) Auto Normal [facility] Comment on above: Order Comment: Speci men Type: BLOOD SPECIMENOrdering Facility: [facility] Address: [address] [place] [address] Performed By: #### 5 7021-8 ####[facility] LABORATORYCLIA [id number] [address] [place] Eosinophils (Bld) [#/Vol] 0.16 10*3/uL Normal <0.46 [facility] Comment on above: Order Comment: Speci men Type: BLOOD SPECIMENOrdering Facility: [facility] Address: [address] [place] [address] Performed By: #### 5 7021-8 ####[facility] LABORATORYCLIA [id number] [address] STATES [facility] Eosinophils/100 WBC (Bld) 1.8 % Normal [facility] Comment on above: Order Comment: Speci men Type: BLOOD SPECIMENOrdering Facility: [facility] Address: [address] [place] [address] Performed By: #### 5 7021-8 ####[facility] LABORATORYCLIA [id number] [address] Erythrocyte distribution width (RBC) [Ratio] 14.5 % Normal 11.5-15.0 [facility] Comment on above: Order Comment: Speci men Type: BLOOD SPECIMENOrdering Facility: [facility] Address: [address] [place] [address] Performed By: #### 5 7021-8 ####[facility] LABORATORYCLIA [id number] [address] Hematocrit (Bld) [Volume fraction] 43.4 % Normal 36.0-46.0 [facility] Comment on above: Order Comment: Speci men Type: BLOOD SPECIMENOrdering Facility: [facility] Address: [address] [place] [address] Performed By: #### 5 7021-8 ####[facility] LABORATORYCLIA [id number] [place] [id number] [place] Hemoglobin (Bld) [Mass/Vol] 13.6 g/dL Normal 11.5-15.5 [facility] Comment on above: Order Comment: Speci men Type: BLOOD SPECIMENOrdering Facility: [facility] Address: [address] [place] [address] Performed By: #### 5 7021-8 ####[facility] LABORATORYCLIA [id number] [place] [id number] [place] Immature granulocytes (Bld) [#/Vol] 0.08 10*3/uL Normal <0.10 [facility] Comment on above: Order Comment: Speci men Type: BLOOD SPECIMENOrdering Facility: [facility] Address: [address] [place] [address] Performed By: #### 5 7021-8 ####[facility] LABORATORYCLIA [id number] [place] [address] [place] Immature granulocytes/100 WBC (Bld) 0.9 % Normal [facility] Comment on above: Order Comment: Speci men Type: BLOOD SPECIMENOrdering Facility: [facility] Address: [address] [place] [address] Performed By: #### 5 7021-8 ####[facility] LABORATORYCLIA [id number] [place] [id number] [place] Lymphocytes (Bld) [#/Vol] 3.59 10*3/uL Normal 1.00-4.00 [facility] Comment on above: Order Comment: Speci men Type: BLOOD SPECIMENOrdering Facility: [facility] Address: [address] [place] [address] Performed By: #### 5 7021-8 ####[facility] LABORATORYCLIA [id number] [place] [id number] [place] Lymphocytes/100 WBC (Bld) 40.5 % Normal [facility] Comment on above: Order Comment: Speci men Type: BLOOD SPECIMENOrdering Facility: [facility] Address: [address] [place] [address] Performed By: #### 5 7021-8 ####[facility] LABORATORYCLIA [id number] [address] MCH (RBC) [Entitic mass] 28.7 pg Normal 26.0-34.0 [facility] Comment on above: Order Comment: Speci men Type: BLOOD SPECIMENOrdering Facility: [facility] Address: [address] [place] [address] Performed By: #### 5 7021-8 ####[facility] LABORATORYCLIA [id number] [address] [place] MCHC (RBC) [Mass/Vol] 31.3 g/dL Normal 30.5-36.[address] [facility] Comment on above: Order Comment: Speci men Type: BLOOD SPECIMENOrdering Facility: [facility] Address: [address] [place] [address] Performed By: #### 5 7021-8 ####[facility] LABORATORYCLIA [id number] [address] [place] MCV (RBC) [Entitic vol] 91.6 fL Normal 80.0-100.0 [facility] Comment on above: Order Comment: Speci men Type: BLOOD SPECIMENOrdering Facility: [facility] Address: [address] [place] [address] Performed By: #### 5 7021-8 ####[facility] LABORATORYCLIA [id number] [address] [place] Monocytes (Bld) [#/Vol] 0.81 10*3/uL Normal <0.87 [facility] Comment on above: Order Comment: Speci men Type: BLOOD SPECIMENOrdering Facility: [facility] Address: [address] [place] [address] Performed By: #### 5 7021-8 ####[facility] LABORATORYCLIA [id number] [address] [place] Monocytes/100 WBC (Bld) 9.1 % Normal [facility] Comment on above: Order Comment: Speci men Type: BLOOD SPECIMENOrdering Facility: [facility] Address: [address] [place] [address] Performed By: #### 5 7021-8 ####[facility] LABORATORYCLIA [id number] [place] [address] [place] Neutrophils (Bld) [#/Vol] 4.11 10*3/uL Normal 1.45-7.50 [facility] Comment on above: Order Comment: Speci men Type: BLOOD SPECIMENOrdering Facility: [facility] Address: [address] [place] [address] Performed By: #### 5 7021-8 ####[facility] LABORATORYCLIA [id number] [place] [address] [place] Neutrophils/100 WBC (Bld) 46.3 % Normal [facility] Comment on above: Order Comment: Speci men Type: BLOOD SPECIMENOrdering Facility: [facility] Address: [address] [place] [address] Performed By: #### 5 7021-8 ####[facility] LABORATORYCLIA [id number] [place] [address] [place] Nucleated RBC (Bld) [#/Vol] 10*3/uL Normal <0.01 [facility] Comment on above: Order Comment: Speci men Type: BLOOD SPECIMENOrdering Facility: [facility] Address: [address] [place] [address] Performed By: #### 5 7021-8 ####[facility] LABORATORYCLIA [id number] [place] [address] [place] Nucleated RBC/100 WBC (Bld) [Ratio] 0.0 /100 WBC Normal [facility] Comment on above: Order Comment: Speci men Type: BLOOD SPECIMENOrdering Facility: [facility] Address: [address] [place] [address] Performed By: #### 5 7021-8 ####[facility] LABORATORYCLIA [id number] [address] [place] Platelet mean volume (Bld) [Entitic vol] 10.7 fL Normal 9.0-12.7 [facility] Comment on above: Order Comment: Speci men Type: BLOOD SPECIMENOrdering Facility: [facility] Address: [address] [place] [address] Performed By: #### 5 7021-8 ####[facility] LABORATORYCLIA [id number] [place] [address] [place] Platelets (Bld) [#/Vol] 430 10*3/uL High 150-400 [facility] Comment on above: Order Comment: Speci men Type: BLOOD SPECIMENOrdering Facility: [facility] Address: [address] [place] [address] Performed By: #### 5 7021-8 ####[facility] LABORATORYCLIA [id number] [place] [address] [place] RBC (Bld) [#/Vol] 4.74 10*6/uL Normal 3.90-5.20 [facility] Comment on above: Order Comment: Speci men Type: BLOOD SPECIMENOrdering Facility: [facility] Address: [address] [place] [address] Performed By: #### 5 7021-8 ####[facility] LABORATORYCLIA [id number] [place] [id number] [place] WBC (Bld) [#/Vol] 8.87 10*3/uL Normal 3.70-11.00 [facility] Comment on above: Order Comment: Speci men Type: BLOOD SPECIMENOrdering Facility: [facility] Address: [address] [place] [address] Performed By: #### 5 7021-8 ####[facility] LABORATORYCLIA [id number] [address] [place] CNOVon 07-08-2024 CNOV Office Visit (FAMPWS ) ----- SANDRA SCHMITZ ([id number]) 1945 F Date Time Provider Department 07/08/24 2:00 PM MANDEEP HOUSER During your visit today, we recorded the following information about you: Pulse Blood pressure Weight 66/minute 110/70 83.5 kg Mandeep Houser DO 07/08/2024 2:50 PM Signed [employer] [facility] local options Dr.Sleik Dr. [place]s Options for mood Low dose of valerian root 250-500 mg in the evening Light box therapy consideration of light at 10,000 Lux strength- 20-30 minutes a day in the AM from Feb through August to help mood, can buy this on [employer] for use Mandeep Houser DO 07/08/2024 3:48 [...] October Would like to have her medical silver buffer more local for better accessibility PAST MEDICAL HISTORY Diagnosis Date Acute acalculous cholecystitis 05/30/2020 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 09/22/2020 Acute on chronic systolic CHF (congestive heart failure) ([facility]) 05/03/2020 Aspiration pneumonia ([facility]) 05/30/2020 Chest pain 05/03/2020 Chest pressure 01/23/2013 Chronic diastolic congestive heart failure ([facility]) 02/14/2021 Clostridium difficile diarrhea 09/28/2020 Complete uterovaginal [...] use: No (more content not included)... Normal [facility] Comprehensive metabolic 2000 panelon 07-08-2024 Albumin [Mass/Vol] 4.3 g/dL Normal 3.9-4.9 [facility] Comment on above: Order Comment: Speci men Type: BLOOD SPECIMENOrdering Facility: [facility] Address: [address] [place] [address] Performed By: #### 2 132-9, 80089-5 ####[facility] LABORATORYCLIA [id number] [address] STATES OF [facility] ALP [Catalytic activity/Vol] 82 U/L Normal 34-123 [facility] Comment on above: Order Comment: Speci men Type: BLOOD SPECIMENOrdering Facility: [facility] Address: [address] [place] [address] Performed By: #### 2 132-9, 05190-1 ####[facility] LABORATORYCLIA [id number] [address] [place] ALT With P-5'-P [Catalytic activity/Vol] 11 U/L Normal 7-38 [facility] Comment on above: Order Comment: Speci men Type: BLOOD SPECIMENOrdering Facility: [facility] Address: [address] [place] [address] Performed By: #### 2 132-9, 21691-3 ####[facility] LABORATORYCLIA [id number] [place] [address] [place] Anion gap [Moles/Vol] 12 mmol/L Normal 8-[address] [facility] Comment on above: Order Comment: Speci men Type: BLOOD SPECIMENOrdering Facility: [facility] Address: [address] [place] [address] Performed By: #### 2 132-9, 24728-9 ####[facility] LABORATORYCLIA [id number] [place] [address] [place] AST With P-5'-P [Catalytic activity/Vol] 16 U/L Normal 13-35 [facility] Comment on above: Order Comment: Speci men Type: BLOOD SPECIMENOrdering Facility: [facility] Address: [address] [place] [address] Performed By: #### 2 132-9, 47577-4 ####[facility] LABORATORYCLIA [id number] [place] [address] [place] Bilirubin [Mass/Vol] 0.7 mg/dL Normal 0.2-1.3 [facility] Comment on above: Order Comment: Speci men Type: BLOOD SPECIMENOrdering Facility: [facility] Address: [address] [place] [address] Performed By: #### 2 132-9, 02182-5 ####[facility] LABORATORYCLIA [id number] [place] [address] [place] Calcium [Mass/Vol] 9.8 mg/dL Normal 8.5-10.2 [facility] Comment on above: Order Comment: Speci men Type: BLOOD SPECIMENOrdering Facility: [facility] Address: [address] [place] [address] Performed By: #### 2 132-9, 21114-8 ####[facility] LABORATORYCLIA [id number] [place] [address] [place] Chloride [Moles/Vol] 102 mmol/L Normal 98-107 [facility] Comment on above: Order Comment: Speci men Type: BLOOD SPECIMENOrdering Facility: [facility] Address: [address] [place] [address] Performed By: #### 2 132-9, 66530-1 ####Active StorageLUIS ALFREDO [facility] LABORATORYCLIA [id number] [place] [address] [place] CO2 [Moles/Vol] 26 mmol/L Normal 22-30 [facility] Comment on above: Order Comment: Speci men Type: BLOOD SPECIMENOrdering Facility: [facility] Address: [address] [place] [address] Performed By: #### 2 132-9, ####Active StorageHEALTHSOUTH REHABILITATION HOSPITALIA [id number] [address] OF [facility] Creatinine [Mass/Vol] 0.85 mg/dL Normal 0.58-0.[address] [facility] Comment on above: Order Comment: Speci men Type: BLOOD SPECIMENOrdering Facility: [facility] Address: [address] [place] [address] Performed By: #### 2 132-9, 64566-2 ####Active StorageHEALTHSOUTH REHABILITATION HOSPITALIA [id number] [address] Creatinine and Glomerular filtration rate.predicted panel (S/P/Bld) 71 mL/min/1.73m??? Normal >=60 [facility] Comment on above: Order Comment: Speci men Type: BLOOD SPECIMENOrdering Facility: [facility] Address: [address] [place] [address] Result Comment: Aaron mated Glomerular Filtration Rate [...] actual GFR. Performed By: #### 2 132-9, 14736-2 ####[employer] [facility] LABORATORYCLIA [id number] [place] [id number] [place] Glucose [Mass/Vol] 86 mg/dL Normal 74-99 [facility] Comment on above: Order Comment: Lenard men Type: BLOOD SPECIMENOrdering Facility: [facility] Address: [address] [place], [place] [address] Result Comment: The [place] [employer] (ADA) provides guidance for cutoff [...] Standards of Medical Care in Diabetes 2016, [place] [employer]. Diabetes Care. 2016.39(Suppl 1). Performed By: #### 2 132-9, 86719-2 ####[facility] LABORATORYCLIA [id number] [place] [id number] [place] Potassium [Moles/Vol] 4.9 mmol/L Normal 3.7-5.[address] [facility] Comment on above: Order Comment: Lenard jesus Type: BLOOD SPECIMENOrdering Facility: [facility] Address: [address] [place], [place] [id number] Performed By: #### 2 132-9, ####[facility] LABORATORYCLIA [id number] [place] [address] [place] Protein [Mass/Vol] 7.4 g/dL Normal 6.3-8.0 [facility] Comment on above: Order Comment: Lenard jesus Type: BLOOD SPECIMENOrdering Facility: [facility] Address: [address] [place], [place] [address] Performed By: #### 2 132-9, 13091-0 ####[facility] StorageR[facility]FE[facility] LABORATORYCLIA [id number] [place] [address] [place] Sodium [Moles/Vol] 140 mmol/L Normal 136-144 [facility] Comment on above: Order Comment: Speci men Type: BLOOD SPECIMENOrdering Facility: [facility] Address: [address] [place] [address] Performed By: #### 2 132-9, 60857-2 ####[facility] LABORATORYCLIA [id number] [place] [address] [place] Urea nitrogen [Mass/Vol] 23 mg/dL High 7-21 [facility] Comment on above: Order Comment: Speci men Type: BLOOD SPECIMENOrdering Facility: [facility] Address: [address] [place] [address] Performed By: #### 2 132-9, 77365-9 ####[facility] LABORATORYCLIA [id number] [place] [address] [place] Magnesium SerPl-mCncon 07-08 Magnesium [Mass/Vol] 2.0 mg/dL Normal 1.7-2.3 [facility] Comment on above: Order Comment: Speci men Type: BLOOD SPECIMENOrdering Facility: [facility] Address: [address] [place] [address] Performed By: #### 3 016-3, 68868-0, 45171-0, 7 ####[facility] LABORATORYCLIA [id number] [place] [address] [place] NT-proBNP SerPl-mCncon 07-08 Natriuretic peptide.B prohormone N-Terminal [Mass/Vol] 2199 pg/mL High <450 [facility] Comment on above: Order Comment: Speci men Type: BLOOD SPECIMENOrdering Facility: [facility] Address: [address] [place] [address] Performed By: #### 3 016-3, 97478-9, , 3023-11 ####[facility] LABORATORYCLIA [id number] [place] [address] [place] T4 Free SerPl-mCncon 07-08- 025 Free T4 [Mass/Vol] 1.8 ng/dL High 0.9-1.7 [facility] Comment on above: Order Comment: Speci men Type: BLOOD SPECIMENOrdering Facility: [facility] Address: [address] [place] [address] Performed By: #### 3 016-3, 03695-2, 32055-0, 3024-7 ####[facility] LABORATORYCLIA [id number] [place] [address] [place] TSH SerPl-aCncon 07-08-2024 TSH Qn 0.814 m[IU]/L Normal 0.270-4.200 [facility] Comment on above: Order Comment: Speci men Type: BLOOD SPECIMENOrdering Facility: [facility] Address: [address] [place] [address] Performed By: #### 3 016-3, 06418-5, 96535-6, 3024-7 ####[facility] LABORATORYCLIA [id number] [place] [address] [place] Urinalysis complete panel (U )on 07-08-2024 Bacteria LM.HPF (Urine sed) [#/Area] Negative Normal Negative [facility] Comment on above: Order Comment: Speci men Type: URINE SPECIMENOrdering Facility: [facility] Address: [address] [place] [address] Performed By: #### 2 4356-8 ####[facility] LABCLIA [id number] [place] [address] [place] Bilirubin Ql (U) Negative Normal Negative [facility] [facility] Comment on above: Order Comment: Speci men Type: URINE SPECIMENOrdering Facility: [facility] Address: [address] [place] [address] Performed By: #### 2 4356-8 ####[facility] LABCLIA [id number] [place] [address] [place] Clarity (Unsp spec) Clear Normal Clear [facility] Comment on above: Order Comment: Speci men Type: URINE SPECIMENOrdering Facility: [facility] Address: [address] [place] [address] Performed By: #### 2 4356-8 ####[facility] LABCLIA [id number] [address], [place] [address] [place] Color (U) Yellow Normal Yellow [facility] Comment on above: Order Comment: Speci men Type: URINE SPECIMENOrdering Facility: [facility] Address: [address] [place] [address] Performed By: #### 2 4356-8 ####[facility] LABIA [id number] [address], [place] [address] [place] Epithelial cells LM.HPF (Urine sed) [#/Area] Few Normal [facility] Comment on above: Order Comment: Speci men Type: URINE SPECIMENOrdering Facility: [facility] Address: [address] [place] [address] Performed By: #### 2 4356-8 ####[facility] LABIA [id number] [address], [facility] [place] Glucose Test strip (U) [Mass/Vol] Negative Normal Negative [facility] Comment on above: Order Comment: Speci men Type: URINE SPECIMENOrdering Facility: [facility] Address: [address] [place] [address] Performed By: #### 2 4356-8 ####[facility] LABIA [id number] [address], [facility] [place] Hemoglobin Ql (U) Negative Normal Negative [facility] Comment on above: Order Comment: Speci men Type: URINE SPECIMENOrdering Facility: [facility] Address: [address] [place] [address] Performed By: #### 2 4356-8 ####[facility] LABCLIA [id number] [address] [place] [address] [place] Hyaline casts (Urine sed) [#/Area] 0 /[LPF] Normal 0 /LPF [facility] Comment on above: Order Comment: Speci men Type: URINE SPECIMENOrdering Facility: [facility] Address: [address] [place] [address] Performed By: #### 2 4356-8 ####[facility] LABCLIA [id number] [facility] [address] [place] [address] [place] Ketones Ql (U) Negative Normal Negative [facility] Comment on above: Order Comment: Speci men Type: URINE SPECIMENOrdering Facility: [facility] Address: [address] [place] [address] Performed By: #### 2 4356-8 ####[facility] LABCLIA [id number] [address], [facility] [place] Leukocyte esterase Test strip Ql (U) Negative Normal Negative [facility] Comment on above: Order Comment: Speci men Type: URINE SPECIMENOrdering Facility: [facility] Address: [address] [place] [address] Performed By: #### 2 4356-8 ####[facility] LABCLIA [id number] [address], [facility] [place] Nitrite Ql (U) Negative Normal Negative [facility] Comment on above: Order Comment: Speci men Type: URINE SPECIMENOrdering Facility: [facility] Address: [address] [place] [address] Performed By: #### 2 4356-8 ####[facility] LABCLIA [id number] [address] [place] [address] [place] pH (U) 6.0 [pH] Normal <8.5 [facility] Comment on above: Order Comment: Speci men Type: URINE SPECIMENOrdering Facility: [facility] Address: [address] [place] [address] Performed By: #### 2 4356-8 ####[facility] LABCLIA [id number] [address] [place] [address] [place] Protein (U) [Mass/Vol] Negative Normal Negative Cl [facility] Comment on above: Order Comment: Speci men Type: URINE SPECIMENOrdering Facility: [facility] Address: [address] [place] [address] Performed By: #### 2 4356-8 ####[facility] [id number] [place] [address] [place] RBC LM.HPF (Urine sed) [#/Area] 0-2 /HPF Normal 0-2 /HPF [facility] Comment on above: Order Comment: Speci men Type: URINE SPECIMENOrdering Facility: [facility] Address: [address] [place] [address] Performed By: #### 2 4356-8 ####[facility] [id number] [place] [address] [place] Specific gravity (U) [Rel density] 1.022 Normal 1.005-1.030 [facility] Comment on above: Order Comment: Speci men Type: URINE SPECIMENOrdering Facility: [facility] Address: [address] [place] [address] Performed By: #### 2 4356-8 ####[facility] [id number] [address] [place] Urobilinogen Ql (U) 0.2 EU/dL Normal 0.2-1.0 EU/dL [facility] Comment on above: Order Comment: Speci men Type: URINE SPECIMENOrdering Facility: [facility] Address: [address] [place] [address] Performed By: #### 2 4356-8 ####[facility] [id number] [place] [address] [place] WBC LM.HPF (Urine sed) [#/Area] 0-5 /HPF Normal 0-5 /HPF [facility] Comment on above: Order Comment: Speci men Type: URINE SPECIMENOrdering Facility: [facility] Address: [address] [place] [address] Performed By: #### 2 4356-8 ####[facility] LABCLIA [id number] [place] [address] [place] Vit B12 SerPl-mCncon 07-08- 025 Cobalamin (Vitamin B12) [Mass/Vol] pg/mL High 232-1245 [facility] Comment on above: Order Comment: Speci men Type: BLOOD SPECIMENOrdering Facility: [facility] Address: [address] [place] [address] Performed By: #### 2 132-9, 12005-6 ####[facility] LABORATORYCLIA [id number] [place] [id number] [place] XR CHEST 2V [...] and scoliosis. IMPRESSION: No acute radiographic abnormality. Income Tax Administrator: PSCB Transcribe Date/Time: Jul 09 2024 11:46A Dictated by : PERLA ONEILL MD This examination was interpreted and the report reviewed and electronically signed by: PERLA ONEILL MD on Jul 09 2024 11:47AM EST [id number] Normal [facility] CNPPadmini 07-01-2024 CNPN Telephone (FAMPWS) ----- NADIRSANDRA ([id number]) 1945 F Date Time Provider Department 07/01/24 [...] right [M19.071] 08/02/2022 Coronary artery disease involving [place]*08/02/2022 Vitamin D deficiency [E55.9] 08/02/2022 Somatic [...] 07/13/2023 Ac (more content not included)... Normal [facility] CNOVon 06-20-2024 CNOV Office Visit (FAMPWS ) ----- SANDRA SCHMITZ ([id number]) 1945 F Date Time Provider Department 06/20/24 [...] on chronic systolic CHF (congestive heart failure) ([facility]) 05/03/2020 Aspiration pneumonia ([facility]) 05/30/2020 Chest pain 05/03/2020 Chest pressure 01/23/2013 Chronic diastolic congestive heart failure ([facility]) 02/14/2021 Clostridium difficile diarrhea 09/28/2020 Complete uterovaginal prolapse Cystocele, midline Essential hypertension 06/14/2020 Homozygous Factor V Leiden mutation ([facility]) 05/03/2020 Hypothyroidism IBS (irritable bowel syndrome) 01/23/2013 [...] Right a (more content not included)... Normal [facility] CNCOon 06-06-2024 CNCO Letter Text Normal [facility] CNOVon 05-30-2024 CNOV Office Visit (FAMPWS ) ----- SANDRA SCHMITZ ([id number]) 1945 F [place]* Date Time Provider [...] on chronic systolic CHF (congestive heart failure) ([facility]) 05/03/2020 Aspiration pneumonia ([facility]) 05/30/2020 Chest pain 05/03/2020 Chest pressure 01/23/2013 Chronic diastolic congestive heart failure ([facility]) 02/14/2021 Clostridium difficile diarrhea 09/28/2020 Complete uterovaginal prolapse Cystocele, midline Essential hypertension 06/14/2020 Homozygous Factor V Leiden mutation ([facility]) 05/03/2020 Hypothyroidism IBS (irritable bowel syndrome) 01/23/2013 [...] head, C3-6NRrSBr (more content not included)... Normal [facility] CNOVon 05-12-2024 CNOV Office Visit (FAMPWS ) ----- SANDRA SCHMITZ ([id number]) 1945 F [place] Date Time Provider Department 05/12/24 3:20 PM [facility], we recorded [...] on chronic systolic CHF (congestive heart failure) ([facility]) 05/03/2020 Aspiration pneumonia ([facility]) 05/30/2020 Chest pain 05/03/2020 Chest pressure 01/23/2013 Chronic diastolic congestive heart failure ([facility]) 02/14/2021 Clostridium difficile diarrhea 09/28/2020 Complete uterovaginal prolapse Cystocele, midline Essential hypertension 06/14/2020 Homozygous Factor V Leiden mutation ([facility]) 05/03/2020 Hypothyroidism IBS (irritable bowel syndrome) 01/23/2013 [...] posterior T3-10ERrSBl (more content not included)... Normal [facility] CBC W Auto Differential pane l (Bld)on 04-22-2024 Basophils (Bld) [#/Vol] 0.11 10*3/uL High [facility] Basophils/100 WBC (Bld) 0.8 % [facility] Differential cell count method Nom (Bld) Auto [facility] Eosinophils (Bld) [#/Vol] 0.19 10*3/uL [facility] Eosinophils/100 WBC (Bld) 1.3 % [facility] Erythrocyte distribution width (RBC) [Ratio] 14.1 % 11.5 - 15.0 % [facility] Hematocrit (Bld) [Volume fraction] 41.0 % 36.0 - 46.0 % [facility] Hemoglobin (Bld) [Mass/Vol] 12.5 g/dL 11.5 - 15.5 g/dL [facility] Immature granulocytes (Bld) [#/Vol] 0.09 10*3/uL [facility] Immature granulocytes/100 WBC (Bld) 0.6 % [facility] Interpretation and review of laboratory results Abnormal [facility] Lymphocytes (Bld) [#/Vol] 4.47 10*3/uL High [facility] Lymphocytes/100 WBC (Bld) 31.0 % [facility] MCH (RBC) [Entitic mass] 28.0 pg 26.0 - 34.[address] [facility] MCHC (RBC) [Mass/Vol] 30.5 g/dL 30.5 - 36.0 g/dL [facility] MCV (RBC) [Entitic vol] 91.7 fL 80.0 - 100.[address] [facility] Monocytes (Bld) [#/Vol] 1.29 10*3/uL High NINF [facility] Monocytes/100 WBC (Bld) 8.9 % [facility] Neutrophils (Bld) [#/Vol] 8.29 10*3/uL High [facility] Neutrophils/100 WBC (Bld) 57.4 % [facility] Nucleated RBC (Bld) [#/Vol] NINF [facility] Nucleated RBC/100 WBC (Bld) [Ratio] 0.0 % /[address] [facility] Platelet mean volume (Bld) [Entitic vol] 10.4 fL 9.0 - 12.[address] [facility] Platelets (Bld) [#/Vol] 317 10*3/uL [facility] RBC (Bld) [#/Vol] 4.47 10*6/uL 3.90 - 5.2 0 m/uL [facility] WBC (Bld) [#/Vol] 14.44 10*3/uL [facility] Basophils (Bld) [#/Vol] 0.11 10*3/uL High <0.11 [facility] Comment on above: Order Comment: Speci men Type: BLOOD SPECIMENOrdering Facility: [facility] Address: [address] [place] [address] Performed By: #### 5 7021-8 ####[facility] LABCLIA [id number] [place] [address] [place] Basophils/100 WBC (Bld) 0.8 % Normal [facility] Comment on above: Order Comment: Speci men Type: BLOOD SPECIMENOrdering Facility: [facility] Address: [address] [place] [address] Performed By: #### 5 7021-8 ####[facility] LABCLIA [id number] [place] [address] [place] Differential cell count method Nom (Bld) Auto Normal [facility] Comment on above: Order Comment: Speci men Type: BLOOD SPECIMENOrdering Facility: [facility] Address: [address] [place] [address] Performed By: #### 5 7021-8 ####[facility] LABCLIA [id number] [place] [address] [place] Eosinophils (Bld) [#/Vol] 0.19 10*3/uL Normal <0.46 [facility] Comment on above: Order Comment: Speci men Type: BLOOD SPECIMENOrdering Facility: [facility] Address: [address] [place] [address] Performed By: #### 5 7021-8 ####[facility] LABCLIA [id number] [place] [address] [place] Eosinophils/100 WBC (Bld) 1.3 % Normal [facility] Comment on above: Order Comment: Speci men Type: BLOOD SPECIMENOrdering Facility: [facility] Address: [address] [place] [address] Performed By: #### 5 7021-8 ####[facility] LABCLIA [id number] [place] [address] [place] Erythrocyte distribution width (RBC) [Ratio] 14.1 % Normal 11.5-15.0 [facility] Comment on above: Order Comment: Speci men Type: BLOOD SPECIMENOrdering Facility: [facility] Address: [address] [place] [address] Performed By: #### 5 7021-8 ####[facility] LABCLIA [id number] [place] [address] [place] Hematocrit (Bld) [Volume fraction] 41.0 % Normal 36.0-46.0 [facility] Comment on above: Order Comment: Speci men Type: BLOOD SPECIMENOrdering Facility: [facility] Address: [address] [place] [address] Performed By: #### 5 7021-8 ####[facility] LABCLIA [id number] [place] [address] [place] Hemoglobin (Bld) [Mass/Vol] 12.5 g/dL Normal 11.5-15.5 [facility] Comment on above: Order Comment: Speci men Type: BLOOD SPECIMENOrdering Facility: [facility] Address: [address] [place] [address] Performed By: #### 5 7021-8 ####[facility] LABCLIA [id number] [place] [address] [place] Immature granulocytes (Bld) [#/Vol] 0.09 10*3/uL Normal <0.10 [facility] Comment on above: Order Comment: Speci men Type: BLOOD SPECIMENOrdering Facility: [facility] Address: [address] [place] [address] Performed By: #### 5 7021-8 ####[facility] LABCLIA [id number] [place] [address] [place] Immature granulocytes/100 WBC (Bld) 0.6 % Normal [facility] Comment on above: Order Comment: Speci men Type: BLOOD SPECIMENOrdering Facility: [facility] Address: [address] [place] [address] Performed By: #### 5 7021-8 ####[facility] LABCLIA [id number] [place] [address] [place] Lymphocytes (Bld) [#/Vol] 4.47 10*3/uL High 1.00-4.00 [facility] Comment on above: Order Comment: Speci men Type: BLOOD SPECIMENOrdering Facility: [facility] Address: [address] [place] [address] Performed By: #### 5 7021-8 ####[facility] LABIA [id number] [place] [address] [place] Lymphocytes/100 WBC (Bld) 31.0 % Normal [facility] Comment on above: Order Comment: Speci men Type: BLOOD SPECIMENOrdering Facility: [facility] Address: [address] [place] [address] Performed By: #### 5 7021-8 ####[facility] LABIA [id number] [place] [address] [place] MCH (RBC) [Entitic mass] 28.0 pg Normal 26.0-34.0 [facility] Comment on above: Order Comment: Speci men Type: BLOOD SPECIMENOrdering Facility: [facility] Address: [address] [place] [address] Performed By: #### 5 7021-8 ####[facility] LABIA [id number] [place] [address] [place] MCHC (RBC) [Mass/Vol] 30.5 g/dL Normal 30.5-36.[address] [facility] Comment on above: Order Comment: Speci men Type: BLOOD SPECIMENOrdering Facility: [facility] Address: [address] [place] [address] Performed By: #### 5 7021-8 ####[facility] LABIA [id number] [place] [address] [place] MCV (RBC) [Entitic vol] 91.7 fL Normal 80.0-100.0 [facility] Comment on above: Order Comment: Speci men Type: BLOOD SPECIMENOrdering Facility: [facility] Address: [address] [place] [address] Performed By: #### 5 7021-8 ####[facility] LABCLIA [id number] [place] [address] [place] Monocytes (Bld) [#/Vol] 1.29 10*3/uL High <0.87 [facility] Comment on above: Order Comment: Speci men Type: BLOOD SPECIMENOrdering Facility: [facility] Address: [address] [place] [address] Performed By: #### 5 7021-8 ####[facility] LABCLIA [id number] [place] [address] [place] Monocytes/100 WBC (Bld) 8.9 % Normal [facility] Comment on above: Order Comment: Speci men Type: BLOOD SPECIMENOrdering Facility: [facility] Address: [address] [place] [address] Performed By: #### 5 7021-8 ####[facility] LABCLIA [id number] [place] [address] [place] Neutrophils (Bld) [#/Vol] 8.29 10*3/uL High 1.45-7.50 [facility] Comment on above: Order Comment: Speci men Type: BLOOD SPECIMENOrdering Facility: [facility] Address: [address] [place] [address] Performed By: #### 5 7021-8 ####[facility] LABCLIA [id number] [place] [address] [place] Neutrophils/100 WBC (Bld) 57.4 % Normal [facility] Comment on above: Order Comment: Speci men Type: BLOOD SPECIMENOrdering Facility: [facility] Address: [address] [place] [address] Performed By: #### 5 7021-8 ####[facility] LABCLIA [id number] [place] [address] [place] Nucleated RBC (Bld) [#/Vol] 10*3/uL Normal <0.01 [facility] Comment on above: Order Comment: Speci men Type: BLOOD SPECIMENOrdering Facility: [facility] Address: [address] [place] [address] Performed By: #### 5 7021-8 ####[facility] LABCLIA [id number] [place] [address] [place] Nucleated RBC/100 WBC (Bld) [Ratio] 0.0 /100 WBC Normal [facility] Comment on above: Order Comment: Speci men Type: BLOOD SPECIMENOrdering Facility: [facility] Address: [address] [place] [address] Performed By: #### 5 7021-8 ####[facility] LABCLIA [id number] [place] [address] [place] Platelet mean volume (Bld) [Entitic vol] 10.4 fL Normal 9.0-12.7 [facility] Comment on above: Order Comment: Speci men Type: BLOOD SPECIMENOrdering Facility: [facility] Address: [address] [place] [address] Performed By: #### 5 7021-8 ####[facility] LABCLIA [id number] [place] [address] [place] Platelets (Bld) [#/Vol] 317 10*3/uL Normal 150-400 [facility] Comment on above: Order Comment: Speci men Type: BLOOD SPECIMENOrdering Facility: [facility] Address: [address] [place] [address] Performed By: #### 5 7021-8 ####[facility] LABCLIA [id number] [place] [address] [place] RBC (Bld) [#/Vol] 4.47 10*6/uL Normal 3.90-5.20 [facility] Comment on above: Order Comment: Speci men Type: BLOOD SPECIMENOrdering Facility: [facility] Address: [address] [place] [address] Performed By: #### 5 7021-8 ####[facility] LABCLIA [id number] [place] [id number] [place] WBC (Bld) [#/Vol] 14.44 10*3/uL High 3.70-11.[address] [facility] Comment on above: Order Comment: Speci men Type: BLOOD SPECIMENOrdering Facility: [facility] Address: [address] [place] [address] Performed By: #### 5 7021-8 ####[facility] LABCLIA [id number] [place] [id number] [place] CNOVon 04-22-2024 [facility] ----- SANDRA SCHMITZ ([id number]) 1945 [place] Date Time Provider Department 04/22/24 2:00 PM [facility] we recorded [...] on chronic systolic CHF (congestive heart failure) ([facility]) 05/03/2020 Aspiration pneumonia ([facility]) 05/30/2020 Chest pain 05/03/2020 Chest pressure 01/23/2013 Chronic diastolic congestive heart failure ([facility]) 02/14/2021 Clostridium difficile diarrhea 09/28/2020 Complete uterovaginal prolapse Cystocele, midline Essential hypertension 06/14/2020 Homozygous Factor V Leiden mutation ([facility]) 05/03/2020 Hypothyroidism IBS (irritable bowel syndrome) 01/23/2013 [...] intact b (more content not included)... Normal [facility] CRP SerPl-ncon 04-22-2024 CRP [Mass/Vol] 5.4 mg/dL High <0.9 [facility] Comment on above: Order Comment: Speci men Type: BLOOD SPECIMENOrdering Facility: [facility] Address: [address] [place], [place] [address] Performed By: #### 3 040-3, 1987-09 ####[facility] LABCLIA [id number] [address] [address] [place] Comprehensive metabolic 2000 panelon 04-22-2024 Albumin [Mass/Vol] 4.0 g/dL Normal 3.9-4.9 [facility] Comment on above: Order Comment: Speci men Type: BLOOD SPECIMENOrdering Facility: [facility] Address: [address] [place] [address] Performed By: #### 3 016-3, 3024-7, 305-0, 76979-0 ####[facility] LABCLIA [id number] [place] [address] [place] ALP [Catalytic activity/Vol] 76 U/L Normal 34-123 [facility] Comment on above: Order Comment: Speci men Type: BLOOD SPECIMENOrdering Facility: [facility] Address: [address] [place] [address] Performed By: #### 3 016-3, 302-7, 305-0, 66370-5 ####[facility] LABCLIA [id number] [place] [address] [place] ALT [Catalytic activity/Vol] 8 U/L Normal 7-38 [facility] Comment on above: Order Comment: Speci men Type: BLOOD SPECIMENOrdering Facility: [facility] Address: [address] [place] [address] Performed By: #### 3 016-3, 3024-7, 305-0, 95159-9 ####[facility] LABCLIA [id number] [place] [id number] [place] Anion gap [Moles/Vol] 11 mmol/L Normal 8-[address] [facility] Comment on above: Order Comment: Speci men Type: BLOOD SPECIMENOrdering Facility: [facility] Address: [address] [place] [address] Performed By: #### 3 016-3, 3024-7, 305-0, 56529-1 ####[facility] LABCLIA [id number] [place] [address] [place] AST [Catalytic activity/Vol] 14 U/L Normal 13-35 [facility] Comment on above: Order Comment: Speci men Type: BLOOD SPECIMENOrdering Facility: [facility] Address: [address] [place] [address] Performed By: #### 3 016-3, 3024-7, 305-0, 51652-5 ####[facility] LABCLIA [id number] [place] [address] [place] Bilirubin [Mass/Vol] 0.8 mg/dL Normal 0.2-1.3 [facility] Comment on above: Order Comment: Speci men Type: BLOOD SPECIMENOrdering Facility: [facility] Address: [address] [place] [address] Performed By: #### 3 016-3, 3024-7, 3050-0, 07782-2 ####[facility] [id number] [place] [address] [place] Calcium [Mass/Vol] 9.4 mg/dL Normal 8.5-10.2 [facility] Comment on above: Order Comment: Speci men Type: BLOOD SPECIMENOrdering Facility: [facility] Address: [address] [place] [address] Performed By: #### 3 016-3, 3024-7, 305-0, 85583-0 ####[facility] [id number] [place] [address] [place] Chloride [Moles/Vol] 103 mmol/L Normal 98-107 [facility] Comment on above: Order Comment: Speci men Type: BLOOD SPECIMENOrdering Facility: [facility] Address: [address] [place] [address] Performed By: #### 3 016-3, 3024-7, 305-0, 69582-4 ####[facility] LABCLIA [id number] [place] [address] [place] CO2 [Moles/Vol] 27 mmol/L Normal 22-30 [facility] Comment on above: Order Comment: Speci men Type: BLOOD SPECIMENOrdering Facility: [facility] Address: [address] [place] [address] Performed By: #### 3 016-3, 3024-7, 305-0, 65039-4 ####[facility] [id number] [place] [address] [place] Creatinine [Mass/Vol] 0.97 mg/dL High 0.58-0.[address] [facility] Comment on above: Order Comment: Speci men Type: BLOOD SPECIMENOrdering Facility: [facility] Address: [address] [place] [address] Performed By: #### 3 016-3, 3024-7, 305-0, 69230-0 ####[facility] [id number] [place] [address] [place] Creatinine and Glomerular filtration rate.predicted panel (S/P/Bld) 60 mL/min/1.73m??? Normal >=60 [facility] Comment on above: Order Comment: Speci men Type: BLOOD SPECIMENOrdering Facility: [facility] Address: [address] [place] [address] Result Comment: Aaron mated Glomerular Filtration Rate [...] Performed By: #### 3 016-3, 3024-7, 305-0, 67535-1 ####[facility] [id number] [place] [id number] [place] Glucose [Mass/Vol] 90 mg/dL Normal 74-99 [facility] Comment on above: Order Comment: Speci men Type: BLOOD SPECIMENOrdering Facility: [facility] Address: [address] [place] [address] Result Comment: The [place] Diabetes [employer] (ADA) provides guidance for cutoff [...] Standards of Medical Care in Diabetes 2016, [place] [employer]. Diabetes Care. 2016.39(Suppl 1). Performed By: #### 3 016-3, 3024-7, 305-0, 18148-4 ####[facility] LABCL[facility] [id number] [place] [address] [place] Potassium [Moles/Vol] 4.1 mmol/L Normal 3.7-5.[address] [facility] Comment on above: Order Comment: Lenard jesus Type: BLOOD SPECIMENOrdering Facility: [facility] Address: [address] [place] [address] Performed By: #### 3 016-3, 3024-7, 305-0, 17025-8 ####[facility]CL[facility] [id number] [place] [id number] [place] Protein [Mass/Vol] 7.4 g/dL Normal 6.3-8.0 [facility] Comment on above: Order Comment: Ernestinei men Type: BLOOD SPECIMENOrdering Facility: [facility] Address: [address] [place] [address] Performed By: #### 3 016-3, 3024-7, 305-0, 65705-2 ####[facility]CL[facility] [id number] [place] [address] [place] Sodium [Moles/Vol] 141 mmol/L Normal 136-144 [facility] Comment on above: Order Comment: Speci men Type: BLOOD SPECIMENOrdering Facility: [facility] Address: [address] [place] [address] Performed By: #### 3 016-3, 3024-7, 305-0, 00535-7 ####[facility]CL[facility] [id number] [place] [address] [place] Urea nitrogen [Mass/Vol] 19 mg/dL Normal 7-21 [facility] Comment on above: Order Comment: Speci men Type: BLOOD SPECIMENOrdering Facility: [facility] Address: [address] [place] [address] Performed By: #### 3 016-3, 3024-7, 305-0, 57530-3 ####[facility]CL[facility] [id number] [place] [address] [place] Lipase SerPl-cCncon 04-22-20 24 Lipase [Catalytic activity/Vol] 25 U/L Normal 16-61 [facility] Comment on above: Order Comment: Speci men Type: BLOOD SPECIMENOrdering Facility: [facility] Address: [address] [place] [address] Performed By: #### 3 040-3, 1987-09 ####[facility] [id number] [place] [id number] [place] T3Free SerPl-mCncon 04-22-20 24 Free T3 [Mass/Vol] 2.1 pg/mL Low 2.3-4.1 [facility] Comment on above: Order Comment: Speci men Type: BLOOD SPECIMENOrdering Facility: [facility] Address: [address] [place] [address] Performed By: #### 3 016-3, 3024-7, 305-0, 23212-4 ####[facility]CL[facility] [id number] [place] [id number] [place] T4 Free SerPl-mCncon 024 Free T4 [Mass/Vol] 1.6 ng/dL Normal 0.9-1.7 [facility] Comment on above: Order Comment: Speci men Type: BLOOD SPECIMENOrdering Facility: [facility] Address: [address] [place] [address] Performed By: #### 3 016-3, 3024-7, 3051-0, 30309-3 ####[facility] [id number] [place] [address] [place] TSH SerPl-aCncon 04-22-2024 TSH Qn 0.233 m[IU]/L Low 0.270-4.200 [facility] Comment on above: Order Comment: Speci men Type: BLOOD SPECIMENOrdering Facility: [facility] Address: [address] [place] [address] Performed By: #### 3 016-3, 3024-7, 3051-0, 80751-4 ####[facility] [id number] [place] [address] [place] UA DIP, URINE (POC)on 2023 BILIRUBIN UA (POCT) Negative Negative [facility] CLARITY UA (POCT) Clear [facility] COLOR UA (POCT) Yellow [facility] GLUCOSE UA (POCT) Negative Negative mg/dL [facility] Hemoglobin Ql (U) Negative Negative [facility] KETONE UA (POCT) Negative Negative mg/dL [facility] LEUKOCYTES UA (POCT) Negative Negative [facility] NITRITE UA (POCT) Negative Negative [facility] PH UA (POCT) 6.0 4.5 - 8.[address] [facility] Protein Ql (U) Negative Negative mg/dL [facility] SPECIFIC GRAVITY UA (POCT) 1.015 1.005 - 1.[address] [facility] UROBILINOGEN UA (POCT) 0.2 Jeanette l E.U./dL [facility] Location:[facility] [place], [address] [facility], [place], [address] [facility] POINT OF CARE [facility] 12 Lead EKGon 03-27-2024 12 Lead EKG [facility] Cardiovascular Services [address] [place] [address] 12 Lead EKG 03/27/24 0108 MR#: [id number] Acct: [id number] Name: SANDRA SCHMITZ Rep #: [id number] : 1945 78 From: Yousuf Parker MD [...] ECG Confirmed by TEO BRYAN, MONICA ([id number]), non linear editor SINCERE HINSON ([id number]) on 03/27/2024 1:51:10 PM Referred By: Confirmed By: MONICA PARKER MD 03/27/24 1351 Date Yousuf Parker MD CC: Dr. Mandeep Houser DO; Parker Nunez DO Signed Normal [facility] Abdomen/Pelvis W IV Cont ONL Yon 03-27-2024 Abdomen/Pelvis W IV Cont ONLY [facility] Imaging Services [address] [address] Abdomen/Pelvis W IV Cont ONLY MR#: [id number] Acct: [id number] Name: SANDRA SCHMITZ Rep #: [id number] : 1945 F 78 From: Lacy Virk PCP: Dr. Mandeep Houser DO Status: REG ER Study: Abdomen/Pelvis W IV Cont ONLY Date of Exam: Exam# [id number] Ordering Dr: Parker Nunez DO [id number] EXAM: CT Abdomen And Pelvis W/ Contrast [...] without evidence of acute diverticulitis. Electronically Signed: aLcy Pemberton MD at 3:17 EST , CC: Dr. Mandeep Houser DO; Parker Nunez DO Income Tax Administrator: Signed Normal [facility] BNP,B-Type NATRIURETIC PEPTI Lizeth 03-27-2024 Natriuretic peptide B (Bld) [Mass/Vol] 268.9 pg/mL High 0-100 [facility] Comment on above: Performed By: #### L 501.5200, L100.0100, L500.3400, L500.2500, L300.8000, L503.6620, L501.2450 #### [facility] [address] [place], [address] Basic Metabolic Profile (BMP )on 03-27-2024 BUN/CRE 30.8 RATIO High 10-20 [facility] Comment on above: Performed By: #### L 501.5200, L100.0100, L500.3400, L500.2500, L300.8000, L503.6620, L501.2450 #### [facility] [address] [place], [address] CA,Total 9.1 mg/dL Normal 8.5-10.1 [facility] Comment on above: Performed By: #### L 501.5200, L100.0100, L500.3400, L500.2500, L300.8000, L503.6620, L501.2450 #### [facility] [address] [place], [address] Chloride [Moles/Vol] 105 mmol/L Normal 98-107 [facility] Comment on above: Performed By: #### L 501.5200, L100.0100, L500.3400, L500.2500, L300.8000, L503.6620, L501.2450 #### [facility] [address] [place], [address] CO2 [Moles/Vol] 28.0 mmol/L Normal 21.0-32.0 [facility] Comment on above: Performed By: #### L 501.5200, L100.0100, L500.3400, L500.2500, L300.8000, L503.6620, L501.2450 #### [facility] [address] [place], [address] Creatinine [Mass/Vol] 1.07 mg/dL High 0.55-1.02 [facility] Comment on above: Result Comment: The validity of the calculated GFR GFRAA in patients over 70 years has not been determined. Clinical correlation is essential. Performed By: #### L 501.5200, L100.0100, L500.3400, L500.2500, L300.8000, L503.6620, L501.2450 #### [facility] [address] [place], [address] ECRCL 46.99 ml/min Normal [facility] Comment on above: Performed By: #### L 501.5200, L100.0100, L500.3400, L500.2500, L300.8000, L503.6620, L501.2450 #### [facility] [address] [place], [address] EST GFR - AA 64 mL/min Normal >60 [facility] Comment on above: Result Comment: Afri can [place] GFR Calc Performed By: #### L 501.5200, L100.0100, L500.3400, L500.2500, L300.8000, L503.6620, L501.2450 #### [facility] [address] [place], [address] GAP 6 Normal 5-15 [facility] Comment on above: Performed By: #### L 501.5200, L100.0100, L500.3400, L500.2500, L300.8000, L503.6620, L501.2450 #### [facility] [address] [place], [address] GFR/1.73 sq M.predicted among non-blacks MDRD (S/P/Bld) [Vol rate/Area] 53 mL/min/{1.73_m2} Low >60 [facility] Comment on above: Result Comment: Non- GFR Calc Performed By: #### L 501.5200, L100.0100, L500.3400, L500.2500, L300.8000, L503.6620, L501.2450 #### [facility] [address] [place], [address] Glucose [Mass/Vol] 103 mg/dL Normal 74-106 [facility] Comment on above: Result Comment: Fast ing Glucose result from 100 to 125 mg/dL suggests IMPAIRED HOMEOSTASIS per A.D.A. criteria. Performed By: #### L 501.5200, L100.0100, L500.3400, L500.2500, L300.8000, L503.6620, L501.2450 #### [facility] [address] [place], [address] Potassium [Moles/Vol] 3.8 mmol/L Normal 3.5-5.1 [facility] Comment on above: Performed By: #### L 501.5200, L100.0100, L500.3400, L500.2500, L300.8000, L503.6620, L501.2450 #### [facility] [address] [place], [address] Sodium [Moles/Vol] 139 mmol/L Normal 136-145 [facility] Comment on above: Performed By: #### L 501.5200, L100.0100, L500.3400, L500.2500, L300.8000, L503.6620, L501.2450 #### [facility] [address] [place], [address] Urea nitrogen [Mass/Vol] 33 mg/dL High 7-18 [facility] Comment on above: Performed By: #### L 501.5200, L100.0100, L500.3400, L500.2500, L300.8000, L503.6620, L501.2450 #### [facility] [address] [place], [address] CBC W/Diff, Automatedon 03-14 Absolute Lymph 3.11 X10 3/uL Normal 0.83-4.51 [facility] Comment on above: Performed By: #### L 501.5200, L100.0100, L500.3400, L500.2500, L300.8000, L503.6620, L501.2450 #### [facility] [address] [place], [address] Absolute Neut 8.8 X10 3/uL High 2.0-7.7 [facility] Comment on above: Performed By: #### L 501.5200, L100.0100, L500.3400, L500.2500, L300.8000, L503.6620, L501.2450 #### [facility] [address] [place], [address] Basophils/100 WBC (Bld) 0.9 % Normal 0-1 [facility] Comment on above: Performed By: #### L 501.5200, L100.0100, L500.3400, L500.2500, L300.8000, L503.6620, L501.2450 #### [facility] [address] [place], [address] Eosinophils/100 WBC (Bld) 2.3 % Normal 0-5 [facility] Comment on above: Performed By: #### L 501.5200, L100.0100, L500.3400, L500.2500, L300.8000, L503.6620, L501.2450 #### [facility] [address] [place], [address] Erythrocyte distribution width (RBC) [Ratio] 14.0 % Normal 11.6-14.6 [facility] Comment on above: Performed By: #### L 501.5200, L100.0100, L500.3400, L500.2500, L300.8000, L503.6620, L501.2450 #### [facility] [address] [place], [address] Hematocrit (Bld) [Volume fraction] 43.6 % Normal 37-47 [facility] Comment on above: Performed By: #### L 501.5200, L100.0100, L500.3400, L500.2500, L300.8000, L503.6620, L501.2450 #### [facility] [address] [place], [address] Hemoglobin (Bld) [Mass/Vol] 13.7 g/dL Normal 12.0-15.0 [facility] Comment on above: Performed By: #### L 501.5200, L100.0100, L500.3400, L500.2500, L300.8000, L503.6620, L501.2450 #### [facility] [address] [place], [address] IG% 1.100 High 0.0-0.9 [facility] Comment on above: Result Comment: IG% - Immature Granulocytes (promyelocytes, myelocytes and metamyelocytes) > 1% indicates that a LEFT SHIFT is Present. Performed By: #### L 501.5200, L100.0100, L500.3400, L500.2500, L300.8000, L503.6620, L501.2450 #### [facility] [address] [place], [address] Lymphocytes/100 WBC (Bld) 24.2 % Normal 19-41 [facility] Comment on above: Performed By: #### L 501.5200, L100.0100, L500.3400, L500.2500, L300.8000, L503.6620, L501.2450 #### [facility] [address] [place], [address] MCH (RBC) [Entitic mass] 28.9 pg Normal 27.0-32.0 [facility] Comment on above: Performed By: #### L 501.5200, L100.0100, L500.3400, L500.2500, L300.8000, L503.6620, L501.2450 #### [facility] [address] [place], [address] MCHC (RBC) [Mass/Vol] 31.4 g/dL Low 32-36 [facility] Comment on above: Performed By: #### L 501.5200, L100.0100, L500.3400, L500.2500, L300.8000, L503.6620, L501.2450 #### [facility] [address] [place], [address] MCV (RBC) [Entitic vol] 92.0 fL Normal 81-99 [facility] Comment on above: Performed By: #### L 501.5200, L100.0100, L500.3400, L500.2500, L300.8000, L503.6620, L501.2450 #### [facility] [address] [place], [address] Monocytes/100 WBC (Bld) 2.7 % Normal 0-10 [facility] Comment on above: Performed By: #### L 501.5200, L100.0100, L500.3400, L500.2500, L300.8000, L503.6620, L501.2450 #### [facility] [address] [place], [address] Neutrophils/100 WBC (Bld) 68.8 % Normal 47-70 [facility] Comment on above: Performed By: #### L 501.5200, L100.0100, L500.3400, L500.2500, L300.8000, L503.6620, L501.2450 #### [facility] [address] [place], [address] Nucleated RBC (Bld) [#/Vol] 0 10*3/uL Normal 0-5 [facility] Comment on above: Performed By: #### L 501.5200, L100.0100, L500.3400, L500.2500, L300.8000, L503.6620, L501.2450 #### [facility] [address] [place], [address] Platelet mean volume (Bld) [Entitic vol] 10.5 fL Normal 6.2-12.0 [facility] Comment on above: Performed By: #### L 501.5200, L100.0100, L500.3400, L500.2500, L300.8000, L503.6620, L501.2450 #### [facility] [address] [place], [address] Platelets (Bld) [#/Vol] 333 10*3/uL Normal 150-450 [facility] Comment on above: Performed By: #### L 501.5200, L100.0100, L500.3400, L500.2500, L300.8000, L503.6620, L501.2450 #### [facility] [address] [place], [address] RBC (Bld) [#/Vol] 4.74 10*6/uL Normal 4.2-5.4 [facility] Comment on above: Performed By: #### L 501.5200, L100.0100, L500.3400, L500.2500, L300.8000, L503.6620, L501.2450 #### [facility] [address] [place], [address] RDW SD 47.4 fl High 35.1-43.9 [facility] Comment on above: Performed By: #### L 501.5200, L100.0100, L500.3400, L500.2500, L300.8000, L503.6620, L501.2450 #### [facility] [address] [place], [address] WBC (Bld) [#/Vol] 12.8 10*3/uL High 4.4-11.0 [facility] Comment on above: Performed By: #### L 501.5200, L100.0100, L500.3400, L500.2500, L300.8000, L503.6620, L501.2450 #### [facility] [address] [place], [address] Chest PA and Lateralon 03-27 Chest PA and Lateral [facility] Imaging Services [address] [place] [address] Chest PA and Lateral MR#: [id number] Acct: [id number] Name: SANDRA SCHMITZ Rep #: [id number] : 1945 F 78 From: Lacy Virk PCP: Dr. Mandeep Houser DO Status: [facility] Study: Chest PA and Lateral Date of Exam: 03/27/24 Exam# [id number] Ordering Dr: Parker Nunez DO [id number] INDICATION: dyspnea EXAMINATION/TECHNIQUE: X-RAY - XR Chest [...] Dr. Mandeep Houser DO; Parker Nunez DO Income Tax Administrator: Signed Normal [facility] D-Dimer Quantitative (DVT/PE )on 03-27-2024 D-DIMER QUANT 0.57 FEU/ug/m Invalid Interpretation Code 0.27-0.49 [facility] Comment on above: Result Comment: D-Di rosa elena ELEVATED (>0.49): Additional studies and clinical assessments are indicated to conclude diagnosis of: Deep Vein Thrombosis (DVT) or Pulmonary Embolism (PE) CRITICAL VALUE CALLED TO MMARTIAN 03/27/24 0155 Cristhian Aguirre. RESULTS READ BACK BY SAME. Performed By: #### L 501.5200, L100.0100, L500.3400, L500.2500, L300.8000, L503.6620, L501.2450 #### [facility] [address] [facility] [place], [address] Emergency Department Summary on 03-27-2024 Emergency Department Summary [facility] Medical Records Department [address] [place] [address] Emergency Department Summary 03/27/24 MR#: [id number] Acct: [id number] Name: SANDRA SCHMITZ Rep #: [id number] : 1945 78 From: Parker Nunez DO PCP: Dr. Manedep Houser DO Status:DEP ER Location: ED HPI [...] called to bring her in for evaluation [facility] Medical History (Updated 03/27/24 @ 06:55 [...] 18 Res (more content not included)... Normal [facility] Lipaseon 03-27-2024 Lipase [Catalytic activity/Vol] 51 U/L Normal 13-75 [facility] Comment on above: Result Comment: Alva wiggins note: LIPASE revised reference range effective 22. New Lipase methodology. Expected to produce lower values than the previous assay method. NEW Reference Range: 13 - 75 U/L Performed By: #### L 501.5200, L100.0100, L500.3400, L500.2500, L300.8000, L503.6620, L501.2450 #### [facility] [address] [place], [address] Liver Profileon 03-27-2024 Albumin [Mass/Vol] 3.7 g/dL Normal 3.2-5.0 [facility] Comment on above: Performed By: #### L 501.5200, L100.0100, L500.3400, L500.2500, L300.8000, L503.6620, L501.2450 #### [facility] [address] [place], [address] ALK P 78 U/L Normal 45-117 [facility] Comment on above: Performed By: #### L 501.5200, L100.0100, L500.3400, L500.2500, L300.8000, L503.6620, L501.2450 #### [facility] [address] [place], [address] ALT [Catalytic activity/Vol] 16 U/L Normal 13-56 [facility] Comment on above: Performed By: #### L 501.5200, L100.0100, L500.3400, L500.2500, L300.8000, L503.6620, L501.2450 #### [facility] [address] [place], [address] AST [Catalytic activity/Vol] 18 U/L Normal 15-37 [facility] Comment on above: Performed By: #### L 501.5200, L100.0100, L500.3400, L500.2500, L300.8000, L503.6620, L501.2450 #### [facility] [address] [place], [address] Bilirubin [Mass/Vol] 0.40 mg/dL Normal 0.20-1.00 [facility] Comment on above: Result Comment: For patients on eltrombopag therapy, use of Dimension [place] TBIL is not recommended. Performed By: #### L 501.5200, L100.0100, L500.3400, L500.2500, L300.8000, L503.6620, L501.2450 #### [facility] [address] [place], [address] Bilirubin.direct [Mass/Vol] 0.13 mg/dL Normal 0.00-0.30 [facility] Comment on above: Performed By: #### L 501.5200, L100.0100, L500.3400, L500.2500, L300.8000, L503.6620, L501.2450 #### [facility] [address] [place], [address] Globulin (S) [Mass/Vol] 4.5 g/dL High 2.2-4.2 [facility] Comment on above: Performed By: #### L 501.5200, L100.0100, L500.3400, L500.2500, L300.8000, L503.6620, L501.2450 #### [facility] [address] [place], [address] T PROT 8.2 g/dL Normal 6.4-8.2 [facility] Comment on above: Performed By: #### L 501.5200, L100.0100, L500.3400, L500.2500, L300.8000, L503.6620, L501.2450 #### [facility] [address] [place], [address] M100.678on 03-27-2024 M100.678 Pending SARS-CoV-2 (COVID 19) Negative INFLUENZA A Negative INFLUENZA B Negative RSV PCR Negative Normal [facility] Comment on above: Performed By: #### M 100.678 ####[facility] [address] [place], [address] Magnesiumon 03-27-2024 Magnesium [Mass/Vol] 2.1 mg/dL Normal 1.6-2.6 [facility] Comment on above: Performed By: #### L 501.5200, L100.0100, L500.3400, L500.2500, L300.8000, L503.6620, L501.2450 #### [facility] [address] [place], [address] Urinalysis, Completeon 03-27 EPI,SQUAMOUS 0-5 SEEN Normal 5-10 [facility] Comment on above: Order Comment: CLEAN CATCH Performed By: #### L 400.0001 ####[facility] [address] [place], [address] BACTERIA 0 SEEN Normal None Seen [facility] Comment on above: Order Comment: CLEAN CATCH Performed By: #### L [id number] ####[facility] [address] [place], [address] Mucus Ql (Urine sed) 0 SEEN Normal [facility] Comment on above: Order Comment: CLEAN CATCH Performed By: #### [id number] ####[facility] [address] [place], [address] RBC 0 SEEN Normal 0-5 [facility] Comment on above: Order Comment: CLEAN CATCH Performed By: #### L [id number] ####[facility] [address] [place], [address] WBC 0 SEEN Normal 0-5 [facility] Comment on above: Order Comment: CLEAN CATCH Performed By: #### L 400.0001 ####[facility] [address] [place], [address] CNPNon [facility] ----- SANDRA SCHMITZ ([id number]) 1945 [place]* Date Time Provider [...] right [M19.071] 08/02/2022 Coronary artery disease involving [place]*08/02/2022 Vitamin D deficiency [E55.9] (more content not included)... Normal [facility] Jayna 03-05-2024 TIMN Telephone (FAMPWS) ----- SANDRA SCHMITZ ([id number]) 1945 Pra[address] Farhan Shonna* Date Time Provider [...] right [M19.071] 08/02/2022 Coronary artery disease involving [place]*08/02/2022 Vitamin D deficiency [E55.9] 08/02/2022 Somatic [...] (left bundle (more content not included)... Normal [facility] CNOVon 02-12-2024 CNOV Office Visit (FAMPWS ) ----- SANDRA SCHMITZ ([id number]) 1945 [place]* Date Time Provider Department 02/12/24 2:00 PM [facility] During [facility] visit today, we recorded [...] on chronic systolic CHF (congestive heart failure) ([facility]) 05/03/2020 Aspiration pneumonia ([facility]) 05/30/2020 Chest pain 05/03/2020 Chest pressure 01/23/2013 Chronic diastolic congestive heart failure ([facility]) 02/14/2021 Clostridium difficile diarrhea 09/28/2020 Complete uterovaginal prolapse Cystocele, midline Essential hypertension 06/14/2020 Homozygous Factor V Leiden mutation ([facility]) 05/03/2020 Hypothyroidism IBS (irritable bowel syndrome) 01/23/2013 [...] T3-10ERrSBl L1-2NRrS (more content not included)... Normal [facility] T3Free SerPl-mCncon 02-12-20 24 Free T3 [Mass/Vol] 2.1 pg/mL Low 2.3-4.1 [facility] Comment on above: Order Comment: Speci men Type: BLOOD SPECIMENOrdering Facility: [facility] Address: [address] [place] [address] Performed By: #### 3 051-0, 3024-7, 3016-3 ####[facility] LABCLIA [id number] [facility] [id number] [address] [place] T4 Free SerPl-mCncon 024 Free T4 [Mass/Vol] 1.6 ng/dL Normal 0.9-1.7 [facility] Comment on above: Order Comment: Speci men Type: BLOOD SPECIMENOrdering Facility: [facility] Address: [address] [place] [address] Performed By: #### 3 051-0, 3024-7, 6-3 ####[facility] LABCLIA [id number] [place] [id number] [place] TSH SerPl-aCncon 02-12-2024 TSH Qn 0.695 m[IU]/L Normal 0.270-4.200 [facility] Comment on above: Order Comment: Speci men Type: BLOOD SPECIMENOrdering Facility: [facility] Address: [address] [place] [address] Performed By: #### 3 051-0, 3024-7, 6-3 ####[facility] LABCLIA [id number] [address] [place] CNOVon 02-07-2024 CNOV Office Visit (CARDMM ) ----- SANDRA SCHMITZ ([id number]) 1945 [place]* Date Time Provider Department 02/07/24 2:20 PM ANGEL CASTRO During your visit today, we recorded the following information about you: Pulse Blood pressure Weight 83/minute 132/78 89.2 kg Angel Castro DO 02/07/2024 2:40 PM Signed [facility] Department of Cardiovascular Medicine SECTION OF REGIONAL CARDIOLOGY/[facility] OUTPATIENT VISIT DATE February 07, 2024 OUTPATIENT VISIT TYPE ESTABLISHED PATIENT Name: Sandra Ricardo Nadir : 1945 Date: February 07, 2024 PRIMARY CARE PHYSICIAN: Mandeep Houser [address] [place] [address] REFERRING PHYSICIAN: No referring provider defined for this encounter. CHIEF COMPLAINT: Patient presents with: CARD Follow Up 3 Month: PMH: non-ischemic CM, HTN, Hypothyroidism, LBBB s/p AUTOMATION TECH-D IMPRESSION / PLAN: Severe nonischemic cardiomyopathy status post AUTOMATION TECH-D in July 2023. - [facility] 10/2021: mod LAD, D1 prox 40%, mild [...] breath or increasing abdominal girth. - s/p AUTOMATION TECH-D 07/16/23 at [facility] - Follows with advanced heart failure, - Follows with EP, Dr. Wellington and continue follow-up in the device clinic Left bundle branch block - s/p AUTOMATION TECH-D 07/16/23 at [facility] - Follows with EP, Dr. Wellington Nonobstructive coronary artery disease - [facility] 10/2021: mod LAD, D1 prox 40%, mild [...] an ejection fraction of 23% status post AUTOMATION TECH-D in July 2023, hypertension and factor V [...] on chronic systolic CHF (congestive heart failure) ([facility]) 05/03/2020 Aspiration pneumonia ([facility]) 05/30/2020 Chest pain 05/03/2020 Chest pressure 01/23/2013 [...] OF 05/24/2020 TVH, partial colpectomy, anterior colporrhaphy, Dennsi transobturator midurethral sling, cystourethroscopy, rectocele repair with perineorrhaphy, laparoscopic lysis of adhesions and excision of bilateral adnexal structures PAST SURGICAL HISTORY OF 09/07/2020 Laparoscopic cholecystectomy with intraoperative cholangiograms. Dr. Ragsdale SOCIAL HISTORY Social History Tobacco Use Smoking status: Former (more content not included)... Normal [facility] ECG COMPLETEon 02-04-2024 Atrial Rate [address] [facility] Calculated P [place] 21 degrees [facility] Calculated R [place] -61 degrees [facility] Calculated T [place] 63 degrees [facility] P-R Interval [address] [facility] QRS Duration [address] [facility] QT Interval [address] [facility] QTC Calculation (Bazett) [address] [facility] Ventricular Rate 70 BPM [facility] NORMAL SINUS RHYTHM LEFT AXIS DEVIATION INFERIOR MYOCARDIAL INFARCTION , AGE UNDETERMINED ANTEROLATERAL INFARCTION , AGE UNDETERMINED ABNORMAL ECG Confirmed by AUGUSTINE WAN MD ([id number]) on 02/04/2024 10:18:22 AM [facility] NAME : SANDRA SCHMITZ PID : [id number] : 1945 Gender : Female Race : [...] Acquired by : , HEART AND VASCULAR [facility] NT PRO BNPon 01-30-2024 Natriuretic peptide.B prohormone N-Terminal [Mass/Vol] 2145 pg/mL High NINF - 450 pg/mL [facility] Natriuretic peptide.B prohor briana N-Terminal [Mass/Vol]on 01-30-2024 Interpretation and review of laboratory results Abnormal [facility] CNOVon 01-29-2024 CNOV Office Visit (FAMPWS ) ----- SANDRA SCHMITZ ([id number]) 1945 Pra[place]* Date Time Provider Department [...] on chronic systolic CHF (congestive heart failure) ([facility]) 05/03/2020 Aspiration pneumonia ([facility]) 05/30/2020 Chest pain 05/03/2020 Chest pressure 01/23/2013 Chronic diastolic congestive heart failure ([facility]) 02/14/2021 Clostridium difficile diarrhea 09/28/2020 Complete uterovaginal prolapse Cystocele, midline Essential hypertension 06/14/2020 Homozygous Factor V Leiden mutation ([facility]) 05/03/2020 Hypothyroidism IBS (irritable bowel syndrome) 01/23/2013 [...] edema. No (more content not included)... Normal [facility] NT-proBNP Becky-Daniel 01-28 Natriuretic peptide.B prohormone N-Terminal [Mass/Vol] 2145 pg/mL High <450 [facility] Comment on above: Order Comment: Speci men Type: BLOOD SPECIMENOrdering Facility: [facility] Address: [address] [place] [address] Performed By: #### 3 3762-6 ####[facility] LABCLIA [id number] [address] CNOVon 01-15-2024 CNOV Office Visit (CACHFV ) ----- SANDRA SCHMITZ ([id number]) 1945 F Farhan Kil[place]* Date Time Provider [...] and weight daily. Please notify us via gloStreamhart if your Systolic BP (top number) < [...] heart kidney injury risk Please send a [employer] message or call with any questions or concerns: Outpatient Number: [phone] Thank you, Pili Wells MD Advanced Heart Failure and Transplant [employer] [place] [phone] Pili Wells MD 03/07/2024 7:04 PM Signed Heart [facility] V[facility] SECTION OF HEART FAILURE and CARDIAC TRANSPLANT MEDICINE [facility] OUTPATIENT VISIT DATE January 15, 2024 OUTPATIENT VISIT TYPE Established PRIMARY CARE PHYSICIAN: Mandeep Houser [address] [place] [phone] CHIEF COMPLAINT: Follow Up HISTORY OF PRESENT ILLNESS: Sandra Schmitz is a 78 year old female with a medical history that includes non-ischemic CM, HTN, Hypothyroidism, LBBB s/p AUTOMATION TECH-D who is referred to me for heart failure management. Sandra Schmitz was initially diagnosed with non-ischemic CM ~ 4 yrs ago and was doing well on losartan and metoprolol. She had progressive sxs of dyspnea on exertion, therefore she was started on entresto and farxiga and her sxs persisted and she was admitted locally in [place] and then transferred to for AUTOMATION TECH consideration. Interval History: Sandra Schmitz was last [...] LVEF 40%, LVEdd 4.8cm. LBBB: chronic. S/p AUTOMATION TECH 07/2023 Non-obstructive CAD: stable, ischemic testing recently [...] on chronic systolic CHF (congestive heart failure) ([facility]) 05/30/2020: Aspiration pneumonia ([facility]) 05/03/2020: Chest pain 01/23/2013: Chest pressure 02/14/2021: Chronic diastolic congestive heart failure ([facility]) 09/28/2020: Clostridium difficile diarrhea No date: Complete uterovaginal prolapse No date: Cystocele, midline 06/14/2020: Essential hypertension 05/03/2020: Homozygous Factor V Leiden mutation ([facility]) No date: Hypothyroidism 01/23/2013: IBS (irritable bowel syn (more content not included)... Normal [facility] [id number] 01-15-2024 ECG01 Ventricular Rate : 7 0 BPM Atrial Rate : 70 BPM P-R Interval : 132 ms QRS Duration : 116 ms Q-T Interval : 462 ms QTC Calculation(Bazett) : 498 ms Calculated P [place] : 21 degrees Calculated R [place] : -61 degrees Calculated T [place] : 63 degrees NORMAL SINUS RHYTHM LEFT AXIS DEVIATION INFERIOR MYOCARDIAL INFARCTION , AGE UNDETERMINED ANTEROLATERAL INFARCTION , AGE UNDETERMINED ABNORMAL ECG Confirmed by AUGUSTINE WAN MD ([id number]) on 02/04/2024 10:18:22 AM NAME : SANDRA SCHMITZ PID : [id number] : 1945 Gender : Female Race : [...] PILI WELLS Acquired by : Terrie COPE [facility] CNOVon 01-04-2024 CNOV Office Visit (FAMPWS ) ----- SANDRA SCHMITZ ([id number]) 1945 [place]* Date Time Provider Department 01/04/24 4:20 PM [facility] During [facility] visit today, we recorded [...] on chronic systolic CHF (congestive heart failure) ([facility]) 05/30/2020: Aspiration pneumonia ([facility]) 05/03/2020: Chest pain 01/23/2013: Chest pressure 02/14/2021: Chronic diastolic congestive heart failure ([facility]) 09/28/2020: Clostridium difficile diarrhea No date: Complete uterovaginal prolapse No date: Cystocele, midline 06/14/2020: Essential hypertension 05/03/2020: Homozygous Factor V Leiden mutation ([facility]) No date: Hypothyroidism 01/23/2013: IBS (irritable bowel [...] no c (more content not included)... Normal [facility] CBC W Auto Differential pane l (Bld)on 12-12-2023 Basophils (Bld) [#/Vol] 0.11 10*3/uL High <0.11 [facility] Comment on above: Order Comment: Speci men Type: BLOOD SPECIMENOrdering Facility: [facility] [place] Address: [address] [place] [address] Performed By: #### 5 7021-8, 4536-7 ####[facility] LABCLIA [id number] [place] [address] [place] Basophils/100 WBC (Bld) 1.2 % Normal [facility] Comment on above: Order Comment: Speci men Type: BLOOD SPECIMENOrdering Facility: [facility] [place] Address: [address] [place] [address] Performed By: #### 5 7021-8, 7 ####[facility] LABCLIA [id number] [place] [address] [place] Differential cell count method Nom (Bld) Auto Normal [facility] Comment on above: Order Comment: Speci men Type: BLOOD SPECIMENOrdering Facility: [facility] [place] Address: [address] [place] [address] Performed By: #### 5 7021-8, 7 ####[facility] LABCLIA [id number] [place] [address] [place] Eosinophils (Bld) [#/Vol] 0.20 10*3/uL Normal <0.46 [facility] Comment on above: Order Comment: Speci men Type: BLOOD SPECIMENOrdering Facility: [facility] [place] Address: [address] [place] [address] Performed By: #### 5 7021-8, 7 ####[facility] LABCLIA [id number] [place] [address] [place] Eosinophils/100 WBC (Bld) 2.1 % Normal [facility] Comment on above: Order Comment: Speci men Type: BLOOD SPECIMENOrdering Facility: [facility] [place] Address: [address] [place] [address] Performed By: #### 5 7021-8, 7 ####[facility] LABCLIA [id number] [address] [address] [place] Erythrocyte distribution width (RBC) [Ratio] 14.4 % Normal 11.5-15.0 [facility] Comment on above: Order Comment: Speci men Type: BLOOD SPECIMENOrdering Facility: [facility] [place] Address: [address] [place] [address] Performed By: #### 5 7021-8, 7 ####[facility] LABIA [id number] [place] [address] [place] Hematocrit (Bld) [Volume fraction] 40.5 % Normal 36.0-46.0 [facility] Comment on above: Order Comment: Speci men Type: BLOOD SPECIMENOrdering Facility: [facility] [place] Address: [address] [place] [address] Performed By: #### 5 7021-8, 7 ####[facility] LABIA [id number] [place] [id number] [place] Hemoglobin (Bld) [Mass/Vol] 12.6 g/dL Normal 11.5-15.5 [facility] Comment on above: Order Comment: Speci men Type: BLOOD SPECIMENOrdering Facility: [facility] [place] Address: [address] [place] [address] Performed By: #### 5 7021-8, 7 ####[facility] LABIA [id number] [address] [address] [place] Immature granulocytes (Bld) [#/Vol] 0.05 10*3/uL Normal <0.10 [facility] Comment on above: Order Comment: Speci men Type: BLOOD SPECIMENOrdering Facility: [facility] [place] Address: [address] [place] [address] Performed By: #### 5 7021-8, 4536-7 ####[facility] LABCLIA [id number] [place] [address] [place] Immature granulocytes/100 WBC (Bld) 0.5 % Normal [facility] Comment on above: Order Comment: Speci men Type: BLOOD SPECIMENOrdering Facility: [facility] [place] Address: [address] [place] [address] Performed By: #### 5 7021-8, 7 ####[facility] LABCLIA [id number] [place] [address] [place] Lymphocytes (Bld) [#/Vol] 3.55 10*3/uL Normal 1.00-4.00 [facility] Comment on above: Order Comment: Speci men Type: BLOOD SPECIMENOrdering Facility: [facility] [place] Address: [address] [place] [address] Performed By: #### 5 7021-8, 7 ####[facility] LABCLIA [id number] [place] [address] [place] Lymphocytes/100 WBC (Bld) 37.6 % Normal [facility] Comment on above: Order Comment: Speci men Type: BLOOD SPECIMENOrdering Facility: [facility] [place] Address: [address] [place] [address] Performed By: #### 5 7021-8, 7 ####[facility] LABCLIA [id number] [place] [address] [place] MCH (RBC) [Entitic mass] 28.8 pg Normal 26.0-34.0 [facility] Comment on above: Order Comment: Speci men Type: BLOOD SPECIMENOrdering Facility: [facility] [place] Address: [address] [place] [address] Performed By: #### 5 7021-8, 4536-7 ####[facility] LABCLIA [id number] [place] [id number] [place] MCHC (RBC) [Mass/Vol] 31.1 g/dL Normal 30.5-36.[address] [facility] Comment on above: Order Comment: Speci men Type: BLOOD SPECIMENOrdering Facility: [facility] Address: [address] [place] [address] Performed By: #### 5 7021-8, 7-7 ####[facility] LABCLIA [id number] [place] [address] [place] MCV (RBC) [Entitic vol] 92.5 fL Normal 80.0-100.0 [facility] Comment on above: Order Comment: Speci men Type: BLOOD SPECIMENOrdering Facility: [facility] Address: [address] [place] [address] Performed By: #### 5 7021-8, 4537-7 ####[facility] LABCLIA [id number] [place] [address] [place] Monocytes (Bld) [#/Vol] 1.02 10*3/uL High <0.87 [facility] Comment on above: Order Comment: Speci men Type: BLOOD SPECIMENOrdering Facility: [facility] Address: [address] [place] [address] Performed By: #### 5 7021-8, 4536-7 ####[facility] LABCLIA [id number] [place] [address] [place] Monocytes/100 WBC (Bld) 10.8 % Normal [facility] Comment on above: Order Comment: Speci men Type: BLOOD SPECIMENOrdering Facility: [facility] [place] Address: [address] [place] [address] Performed By: #### 5 7021-8, 4537-7 ####[facility] LABCLIA [id number] [place] [id number] [place] Neutrophils (Bld) [#/Vol] 4.51 10*3/uL Normal 1.45-7.50 [facility] Comment on above: Order Comment: Speci men Type: BLOOD SPECIMENOrdering Facility: [facility] [place] Address: [address] [place] [address] Performed By: #### 5 7021-8, 4537-7 ####[facility] LABCLIA [id number] [place] [address] [place] Neutrophils/100 WBC (Bld) 47.8 % Normal [facility] Comment on above: Order Comment: Speci men Type: BLOOD SPECIMENOrdering Facility: [facility] [place] Address: [address] [place] [address] Performed By: #### 5 7021-8, 453-7 ####[facility] LABCLIA [id number] [place] [address] [place] Nucleated RBC (Bld) [#/Vol] 10*3/uL Normal <0.01 [facility] Comment on above: Order Comment: Speci men Type: BLOOD SPECIMENOrdering Facility: [facility] [place] Address: [address] [place] [address] Performed By: #### 5 7021-8, 4537-7 ####[facility] LABCLIA [id number] [place] [address] [place] Nucleated RBC/100 WBC (Bld) [Ratio] 0.0 /100 WBC Normal [facility] Comment on above: Order Comment: Speci men Type: BLOOD SPECIMENOrdering Facility: [facility] [place] Address: [address] [place] [address] Performed By: #### 5 7021-8, 4537-7 ####[facility] LABCLIA [id number] [place] [address] [place] Platelet mean volume (Bld) [Entitic vol] 10.5 fL Normal 9.0-12.7 [facility] Comment on above: Order Comment: Speci men Type: BLOOD SPECIMENOrdering Facility: [facility] [place] Address: [address] [place] [address] Performed By: #### 5 7021-8, 4537-7 ####[facility] LABCLIA [id number] [place] [address] [place] Platelets (Bld) [#/Vol] 328 10*3/uL Normal 150-400 [facility] Comment on above: Order Comment: Specjeffy jesus Type: BLOOD SPECIMENOrdering Facility: [facility] [place] Address: [address] [place] [address] Performed By: #### 5 7021-8, 4537-7 ####[facility] LABCLIA [id number] [place] [address] [place] RBC (Bld) [#/Vol] 4.38 10*6/uL Normal 3.90-5.20 [facility] Comment on above: Order Comment: Lenard jesus Type: BLOOD SPECIMENOrdering Facility: [facility] [place] Address: [address] [place] [address] Performed By: #### 5 7021-8, 4537-7 ####[facility] LABIA [id number] [place] [address] [place] WBC (Bld) [#/Vol] 9.44 10*3/uL Normal 3.70-11.00 [facility] Comment on above: Order Comment: Lenard jesus Type: BLOOD SPECIMENOrdering Facility: [facility] [place] Address: [address] [place] [address] Performed By: #### 5 7021-8, 4537-7 ####[facility] LABIA [id number] [place] [address] [place] CELIAC SCREENon 12-12-2023 GLIAD DEAMIDATED IGA QUAL Negative Normal Negative, Test not Indicated [facility] Comment on above: Order Comment: Lenard jesus Type: BLOOD SPECIMENOrdering Facility: [facility] [place] Address: [address] [place] [address] Result Comment: This is used as an aid in diagnosis of celiac disease. Clinical correlation is required. The following results were obtained with an [employer]ova QUANTA Lite Gliadin IgA BLAYNE Gliadin. Gliadin IgA values obtained with different manufacturers' assay methods may not be used interchangeably. The magnitude of the reported IgA levels cannot be correlated to an endpoint titer. Performed By: #### L [id number] ####[facility] LABCLIA [id number] [address] Gliadin peptide IgA Qn (S) 4 Units Normal <20 [facility] Comment on above: Order Comment: Speci men Type: BLOOD SPECIMENOrdering Facility: [facility] [place] Address: [address] [place] [address] Performed By: #### L [id number] ####[facility] LABCLIA [id number] [address] [place] INTERPRETATION No serological evide nce of celiac disease, however, if celiac disease is clinically suspected and patient is not on gluten-free diet, histological diagnosis may be considered. HLA testing may help with risk assessment. Normal [facility] Comment on above: Order Comment: Lenard jesus Type: BLOOD SPECIMENOrdering Facility: [facility] [place] Address: [address] [place] [address] Performed By: #### L [id number] ####[facility] LABCLIA [id number] [address] TRANSGLUTAMINASE IGA ABS INTERPRETATION Negative Normal Negative [facility] Comment on above: Order Comment: Lenard jesus Type: BLOOD SPECIMENOrdering Facility: [facility] [place] Address: [address] [place] [address] Result Comment: The following results were obtained with [employer]ova QUANTA Lite R h-tTG IgA BLAYNE.???R h-tTG IgA values obtained with different manufacturers' assay methods may not be used interchangeably. The magnitude of the reported IgA levels cannot be corelated to an endpoint???concentration. This is used as an aid in diagnosis of celiac disease. Clinical correlation is required. Performed By: #### L [id number] ####[facility] LABCLIA [id number] [place] [address] [place] tTG IgA Qn (S) <2 Normal <4 [facility] Comment on above: Order Comment: Speci men Type: BLOOD SPECIMENOrdering Facility: [facility] [place] Address: [address] [place] [address] Performed By: #### L [id number] ####[facility] LABCLIA [id number] [address] [place] CNOVon 12-12-2023 CNOV Office Visit (FAMPWS ) ----- SANDRA SCHMITZ ([id number]) 1945 [place]* Date Time Provider Department 12/12/23 3:40 PM [facility] visit today, we recorded [...] on chronic systolic CHF (congestive heart failure) ([facility]) 05/30/2020: Aspiration pneumonia ([facility]) 05/03/2020: Chest pain 01/23/2013: Chest pressure 02/14/2021: Chronic diastolic congestive heart failure ([facility]) 09/28/2020: Clostridium difficile diarrhea No date: Complete uterovaginal prolapse No date: Cystocele, midline 06/14/2020: Essential hypertension 05/03/2020: Homozygous Factor V Leiden mutation ([facility]) No date: Hypothyroidism 01/23/2013: IBS (irritable bowel [...] fullness ri (more content not included)... Normal [facility] CRP SerPl-ncon 12-12-2023 CRP [Mass/Vol] 1.2 mg/dL High <0.9 [facility] Comment on above: Order Comment: Speci men Type: BLOOD SPECIMENOrdering Facility: [facility] Address: [address] [place], [place] [id number] Performed By: #### 2 4322-12, 1987-09 ####[facility] LABCLIA [id number] [address] [address] [place] Comprehensive metabolic 2000 panelon 12-12-2023 Albumin [Mass/Vol] 4.0 g/dL Normal 3.9-4.9 [facility] Comment on above: Order Comment: Speci men Type: BLOOD SPECIMENOrdering Facility: [facility] Address: [address] [place] [address] Performed By: #### 2 4322-12, 1987-09 ####[facility] LABCLIA [id number] [place] [id number] [place] ALP [Catalytic activity/Vol] 68 U/L Normal 34-123 [facility] Comment on above: Order Comment: Speci men Type: BLOOD SPECIMENOrdering Facility: [facility] Address: [address] [place] [address] Performed By: #### 2 4322-12, 1987-09 ####[facility] LABCLIA [id number] [place] [id number] [place] ALT [Catalytic activity/Vol] 11 U/L Normal 7-38 [facility] Comment on above: Order Comment: Speci men Type: BLOOD SPECIMENOrdering Facility: [facility] Address: [address] [place] [address] Performed By: #### 2 4322-12, 1987-09 ####[facility] LABCLIA [id number] [address] [address] [place] Anion gap [Moles/Vol] 12 mmol/L Normal 8-[address] [facility] Comment on above: Order Comment: Speci men Type: BLOOD SPECIMENOrdering Facility: [facility] Address: [address] [place] [address] Performed By: #### 2 4322-12, 1987-09 ####[facility] LABCLIA [id number] [place] [id number] [place] AST [Catalytic activity/Vol] 18 U/L Normal 13-35 [facility] Comment on above: Order Comment: Speci men Type: BLOOD SPECIMENOrdering Facility: [facility] Address: [address] [place] [address] Performed By: #### 2 4322-12, 1987-09 ####[facility] LABCLIA [id number] [place] [address] [place] Bilirubin [Mass/Vol] 0.3 mg/dL Normal 0.2-1.3 [facility] Comment on above: Order Comment: Speci men Type: BLOOD SPECIMENOrdering Facility: [facility] Address: [address] [place] [address] Performed By: #### 2 4322-12, 1987-09 ####[facility] LABCLIA [id number] [place] [address] [place] Calcium [Mass/Vol] 9.4 mg/dL Normal 8.5-10.2 [facility] Comment on above: Order Comment: Speci men Type: BLOOD SPECIMENOrdering Facility: [facility] Address: [address] [place] [address] Performed By: #### 2 4322-12, 1987-09 ####[facility] LABCLIA [id number] [place] [id number] [place] Chloride [Moles/Vol] 103 mmol/L Normal 98-107 [facility] Comment on above: Order Comment: Speci men Type: BLOOD SPECIMENOrdering Facility: [facility] Address: [address] [place] [address] Performed By: #### 2 4322-12, 1987-09 ####[facility] LABCLIA [id number] [place] [id number] [place] CO2 [Moles/Vol] 26 mmol/L Normal 22-30 [facility] Comment on above: Order Comment: Speci men Type: BLOOD SPECIMENOrdering Facility: [facility] Address: [address] [place] [address] Performed By: #### 2 4322-12, 1987-09 ####[facility] LABCLIA [id number] [address] [address] [place] Creatinine [Mass/Vol] 0.96 mg/dL Normal 0.58-0.[address] [facility] Comment on above: Order Comment: Speci men Type: BLOOD SPECIMENOrdering Facility: [facility] Address: [address] [place] [address] Performed By: #### 2 4322-12, 1987-09 ####[facility] LABCLIA [id number] [place] [address] [place] Creatinine and Glomerular filtration rate.predicted panel (S/P/Bld) 61 mL/min/1.73m??? Normal >=60 [facility] Comment on above: Order Comment: Specjeffy jesus Type: BLOOD SPECIMENOrdering Facility: [facility] Address: [address] [place] [address] Result Comment: Aaron mated Glomerular Filtration Rate [...] GFR. Performed By: #### 2 4322-12, 1987-09 ####[facility] LABCLIA [id number] [address] [address] [place] Glucose [Mass/Vol] 82 mg/dL Normal 74-99 [facility] Comment on above: Order Comment: Speci edin Type: BLOOD SPECIMENOrdering Facility: [facility] Address: [address] [place] [address] Result Comment: The [place] [employer] Association (ADA) provides guidance for cutoff [...] Standards of Medical Care in Diabetes 2016, [place] [employer]. Diabetes Care. 2016.39(Suppl 1). Performed By: #### 2 43207-19, 1987-09 ####[facility] LABCLIA [id number] [place] [address] [place] Potassium [Moles/Vol] 4.0 mmol/L Normal 3.7-5.[address] [facility] Comment on above: Order Comment: Lenard jesus Type: BLOOD SPECIMENOrdering Facility: [facility] Address: [address] [place] [address] Performed By: #### 2 4322-12, 1987-09 ####[facility] LABIA [id number] [place] [address] [place] Protein [Mass/Vol] 7.2 g/dL Normal 6.3-8.0 [facility] Comment on above: Order Comment: Lenard jesus Type: BLOOD SPECIMENOrdering Facility: [facility] Address: [address] [place] [address] Performed By: #### 2 4322-12, 1987-09 ####[facility] LABCLIA [id number] [place] [id number] [place] Sodium [Moles/Vol] 141 mmol/L Normal 136-144 [facility] Comment on above: Order Comment: Lenard jesus Type: BLOOD SPECIMENOrdering Facility: [facility] Address: [address] [place] [address] Performed By: #### 2 8, 1987-09 ####[facility] LABCLIA [id number] [place] [address] [place] Urea nitrogen [Mass/Vol] 22 mg/dL High 7-21 [facility] Comment on above: Order Comment: Speci edin Type: BLOOD SPECIMENOrdering Facility: [facility] Address: [address] [place] [address] Performed By: #### 2 4323-8, 1987-09 ####[facility] LABCLIA [id number] [place] [id number] [place] ESR Westergren method (Bld) [Velocity]on 12-12-2023 ESR (Bld) [Velocity] 32 mm/h High 0-20 [facility] Comment on above: Order Comment: Ernestinei edin Type: BLOOD SPECIMENOrdering Facility: [facility] Address: [address] [place] [address] Performed By: #### 5 7021-8, 4537-7 ####[facility] LABIA [id number] [address] [place] IgA SerPl-mCncon 12-12-2023 IgA [Mass/Vol] 177 mg/dL Normal 70-400 [facility] Comment on above: Order Comment: Lenard jesus Type: BLOOD SPECIMENOrdering Facility: [facility] Address: [address] [place] [address] Performed By: #### 2 458-8 ####[facility] LABCLIA [id number] [place] [id number] [place] Jayna 12-06-2023 TIMN Telephone (EDUARDO) ----- SANDRA SCHMITZ ([id number]) 1945 [place] Date Time Provider Department 12/06/23 PILI WELLS During your visit today, we recorded the following information about you: Pili Wells MD 12/06/2023 6:51 PM Signed Echo results reviewed. LVEF remains stable, mitral regurgitation is improved. At this time we will continue with medications. No changes Helen Ramachandran RN 12/10/2023 11:41 AM Signed Pili Wells MD Vt, Please call patient with results. She doesn't [...] right [M19.071] 08/02/2022 Coronary artery disease involving [place]*08/02/2022 Vitamin D deficiency [E55.9] 08/02/2022 Somatic dysfunction of head region [M99.00] 08/10/2022 Chronic neck pain [M54.2, G89.29] 08/24/2022 Chronic bronchitis (HCC) [J42] 09/11/2022 SVT (supraventricular tachycardia) (HCC) (more content not included)... Normal [facility] ECHOon 12-05-2023 CONCLUSIONS: - Exam indication: Heart [...] * * * Final * * * [facility] Echocardiography Report: Transthoracic Echo [facility] Date of service: 12/05/2023 1:16:13 PM Ordering physician: PILI WELLS Indication: Heart failure Technologist: Maritza Ahn [facility] Interpreting physician: Jim Gonzalez DO PATIENT: Name: MRS. SANDRA SCHMITZ : 1945 Age: 78 years Gender: F History of hypertension, dyslipidemia, heart failure with hospitalization, cardiomyopathy, coronary artery disease and arrhythmia. Previous cardiovascular interventions: AUTOMATION TECH-D (07/2023) Primary rhythm: V. Paced. Height: 160.02 [...] interventricular septum as detected by Doppler. KO [facility] Jayna 12-03-2023 CNPN Telephone (FAMPWS) ----- SANDRA SCHMITZ ([id number]) 1945 [place] Date Time Provider Department 12/03/23 [facility] During your visit today, we recorded [...] states that order/letter should be faxed to [facility] Cardiac Rehab [phone]. Please review and advise, CARO Soria Jordan L, DO 12/05/2023 7:20 AM Signed Please create letter as below to hold cardiac rehab due to her back pain for 2-3 weeks DO Juana Gamez Kim E, LPN 12/05/2023 11:08 AM Signed letter completed and signed and faxed to [facility] cardiac rehab. Lillian Arias LPN [...] F (more content not included)... [facility] CNPN Telephone (PODCCP) ----- SANDRA SCHMITZ ([id number]) 1945 [place] Date Time Provider Department 11/28/23 MANDEEP HOUSER PODCCJohn During your visit today, we recorded the following information about you: Concetta Dahl 11/28/2023 11:09 AM Signed Transitional Care Management (TCM) [facility] Monitoring Program Provider Action / FYI: N/A SUMMARY: Outreach type: FOLLOW-UP OUTREACH Discharge Network Status: In-Network Discharge Source of Patient: [facility] TCM Discharge Report Patient discharged from [facility] on 11/18/23. Admitted for Pre-syncope. Contact made with patient: Yes, for Follow-up Outreach Hi, my name is Concetta Dahl. I am calling from the [facility] on behalf of your Primary Care [...] Center phone number to speak with a director of corporate communications who can assist you with that appointment. [...] gout involv (more content not included)... Normal [facility] Jayna 11-23-2023 TIMN Telephone (PODCCP) ----- SANDRA SCHMITZ ([id number]) 1945 [place]* Date Time Provider Department 11/23/23 ROJAS PRAKASH PODCCP During your visit today, we recorded the following information about you: Rojas Prakash RN 11/23/2023 1:30 PM Signed Transitional Care Management (TCM) [facility] Monitoring Program Provider Action / FYI: na SUMMARY: Outreach type: INITIAL OUTREACH Discharge Network Status: In-Network Discharge Source of Patient: [facility] TCM Discharge Report Patient discharged from [facility] on 11.18.23. Admitted for Pre-syncope . Contact [...] right [M19.071] 08/02/2022 Coronary artery disease involving [place]*08/02/2022 Vitamin D deficiency [E55.9] 08/02/2022 Somatic dysfunction of head region [M99.00] 08/10/2022 Chronic neck pain [M54.2, G89.29] 08/24/2022 Chronic bronchitis (HCC) [J42] 09/11/2022 SVT (supraventricular tachycardia) (HCC) [I47.1*09/11/2022 Combined systol (more content not included)... Normal [facility] CBC panel Auto (Bld)on 11-17 Erythrocyte distribution width (RBC) [Ratio] 14.1 % Normal 11.5-15.0 [facility] Comment on above: Order Comment: Speci men Type: BLOOD SPECIMENOrdering Facility: [facility] Address: [address] [place] [address] [place] [address] Performed By: #### 5 6522-2 ####[facility] LABORATORYCLIA [id number] [address] Hematocrit (Bld) [Volume fraction] 39.4 % Normal 36.0-46.0 [facility] Comment on above: Order Comment: Speci men Type: BLOOD SPECIMENOrdering Facility: [facility] Address: [address] [place] [address] Performed By: #### 5 8410-2 ####[facility] LABORATORYCLIA [id number] [address] Hemoglobin (Bld) [Mass/Vol] 12.5 g/dL Normal 11.5-15.5 [facility] Comment on above: Order Comment: Speci men Type: BLOOD SPECIMENOrdering Facility: [facility] Address: [address] [place] [address] Performed By: #### 5 8410-2 ####[facility] LABORATORYCLIA [id number] [address] MCH (RBC) [Entitic mass] 28.9 pg Normal 26.0-34.0 [facility] Comment on above: Order Comment: Speci men Type: BLOOD SPECIMENOrdering Facility: [facility] Address: [address] [place] [address] Performed By: #### 5 8410-2 ####[facility] LABORATORYCLIA [id number] [address] MCHC (RBC) [Mass/Vol] 31.7 g/dL Normal 30.5-36.0 [facility] Comment on above: Order Comment: Speci men Type: BLOOD SPECIMENOrdering Facility: [facility] Address: [address] [place] [address] Performed By: #### 5 8410-2 ####[facility] LABORATORYCLIA [id number] [address] MCV (RBC) [Entitic vol] 91.2 fL Normal 80.0-100.0 [facility] Comment on above: Order Comment: Speci men Type: BLOOD SPECIMENOrdering Facility: [facility] Address: [address] [place] [address] Performed By: #### 5 8410-2 ####[facility] LABORATORYCLIA [id number] [place] [address] [place] Nucleated RBC (Bld) [#/Vol] 10*3/uL Normal <0.01 [facility] Comment on above: Order Comment: Speci men Type: BLOOD SPECIMENOrdering Facility: [facility] Address: [address] [place] [address] Performed By: #### 5 8410-2 ####[facility] LABORATORYCLIA [id number] [place] [address] [place] Platelet mean volume (Bld) [Entitic vol] 10.1 fL Normal 9.0-12.7 [facility] Comment on above: Order Comment: Speci men Type: BLOOD SPECIMENOrdering Facility: [facility] Address: [address] [place] [address] Performed By: #### 5 8410-2 ####[facility] LABORATORYCLIA [id number] [place] [address] [place] Platelets (Bld) [#/Vol] 345 10*3/uL Normal 150-400 [facility] Comment on above: Order Comment: Speci men Type: BLOOD SPECIMENOrdering Facility: [facility] Address: [address] [place] [address] Performed By: #### 5 8410-2 ####KO LABORATORYCLIA [id number] [place] [address] [place] RBC (Bld) [#/Vol] 4.32 10*6/uL Normal 3.90-5.20 [facility] Comment on above: Order Comment: Speci men Type: BLOOD SPECIMENOrdering Facility: [facility] Address: [address] [place] [address] Performed By: #### 5 8410-2 ####KO LABORATORYCLIA [id number] [place] [address] [place] WBC (Bld) [#/Vol] 11.76 10*3/uL High 3.70-11.00 [facility] Comment on above: Order Comment: Speci men Type: BLOOD SPECIMENOrdering Facility: [facility] Address: [address] [place] [address] Performed By: #### 5 8410-2 ####[facility] LABORATORYCLIA [id number] [place] [address] [place] CNCOon 11-18-2023 CNCO Letter Text Normal [facility] CNDSon 11-18-2023 CNDS HNO ID: [id number] Author: REMINGTON CAI MD Service: Hospital Medicine [...] call for appointment?: Scheduled Mandeep Houser, [address] [facility] [place] [address] PCP Requested Referral Follow-Up Appointment When: In 2 weeks Bentley Nolasco MD [phone] [facility] [address] [facility] [address] PCP Requested Referral Follow-Up Appointment When: In 2 weeks Angel Castor DO [phone] [address] [place] [address] PCP Requested Referral Additional Provider to Provider [...] [phone] (more content not included)... Normal [facility] CONSULTon 11-18-2023 CONSULT HNO ID: [id number] Author: BENTLEY NOLASCO MD Service: Gastroenterology Author [...] medical history significant for NICM/systolic CHF s/p AUTOMATION TECH-D, IBS, Factor V Leiden, HTN, HPL, hypothyroidism who presented to ED on 11/15/23 with episode of pre-syncope, facial tingling. Labs with MAYCOL, leukocytosis. [place] to be vasovagal episode. A GI evaluation [...] on chronic systolic CHF (congestive heart failure) ([facility]) 05/03/2020 Aspiration pneumonia ([facility]) 05/30/2020 Chest pain 05/03/2020 Chest pressure 01/23/2013 Chronic diastolic congestive heart failure ([facility]) 02/14/2021 Clostridium difficile diarrhea 09/28/2020 Complete uterovaginal prolapse Cystocele, midline Essential hypertension 06/14/2020 Homozygous Factor V Leiden mutation ([facility]) 05/03/2020 Hypothyroidism IBS (irritable bowel syndrome) 01/23/2013 [...] once daily., (more content not included)... Normal [facility] CRP SerPl-mCncon 11-18-2023 CRP [Mass/Vol] 1.2 mg/dL High <0.9 [facility] Comment on above: Order Comment: Speci men Type: BLOOD SPECIMENOrdering Facility: [facility] Address: [address] [place] [address] Performed By: #### 1 9123-9, 3016-3, 10120-4, 1987-09 ####KO LABORATORYCLIA [id number] [place] [address] [place] Comprehensive metabolic 2000 panelon 11-18-2023 Albumin [Mass/Vol] 3.8 g/dL Low 3.9-4.9 [facility] Comment on above: Order Comment: Speci men Type: BLOOD SPECIMENOrdering Facility: [facility] Address: [address] [place] [address] Performed By: #### 1 9123-9, 3015-3, , 1987-09 ####[facility] LABORATORYCLIA [id number] [place] [address] [place] ALP [Catalytic activity/Vol] 63 U/L Normal 34-123 [facility] Comment on above: Order Comment: Speci men Type: BLOOD SPECIMENOrdering Facility: [facility] Address: [address] [place] [address] Performed By: #### 1 9123-9, 3, , 1987-09 ####[facility] LABORATORYCLIA [id number] [place] [address] [place] ALT [Catalytic activity/Vol] 14 U/L Normal 7-38 [facility] Comment on above: Order Comment: Speci men Type: BLOOD SPECIMENOrdering Facility: [facility] Address: [address] [place] [address] Performed By: #### 1 9123-9, 3, , 1987-09 ####[facility] LABORATORYCLIA [id number] [place] [id number] [place] Anion gap [Moles/Vol] 7 mmol/L Low 8-15 [facility] Comment on above: Order Comment: Speci men Type: BLOOD SPECIMENOrdering Facility: [facility] Address: [address] [place] [address] Performed By: #### 1 9123-9, 3, , 1987-09 ####KO LABORATORYCLIA [id number] [place] [address] [place] AST [Catalytic activity/Vol] 15 U/L Normal 13-35 [facility] Comment on above: Order Comment: Speci men Type: BLOOD SPECIMENOrdering Facility: [facility] Address: [address] [place] [address] Performed By: #### 1 9123-9, 3, , 1987-09 ####KO LABORATORYCLIA [id number] [place] [address] [place] Bilirubin [Mass/Vol] 0.5 mg/dL Normal 0.2-1.3 [facility] Comment on above: Order Comment: Speci men Type: BLOOD SPECIMENOrdering Facility: [facility] Address: [facility] [place] [address] Performed By: #### 1 9123-9, 3015-07, , 1987-09 ####[facility] LABORATORYCLIA [id number] [place] [address] [place] Calcium [Mass/Vol] 9.1 mg/dL Normal 8.5-10.2 [facility] Comment on above: Order Comment: Speci men Type: BLOOD SPECIMENOrdering Facility: [facility] Address: [facility] [place] [id number] Performed By: #### 1 9123-9, 3015-07, , 1987-09 ####[facility] LABORATORYCLIA [id number] [place] [address] [place] Chloride [Moles/Vol] 104 mmol/L Normal 98-107 [facility] Comment on above: Order Comment: Speci men Type: BLOOD SPECIMENOrdering Facility: [facility] Address: [address] [place] [id number] Performed By: #### 1 9123-9, 3, , 1987-09 ####KO LABORATORYCLIA [id number] [place] [address] [place] CO2 [Moles/Vol] 29 mmol/L Normal 22-30 [facility] Comment on above: Order Comment: Speci men Type: BLOOD SPECIMENOrdering Facility: [facility] Address: [facility] [place] [address] Performed By: #### 1 9123-9, 6-3, , 1987-09 ####[facility] LABORATORYCLIA [id number] [place] [address] [place] [facility] Creatinine [Mass/Vol] 0.96 mg/dL Normal 0.58-0.96 [facility] Comment on above: Order Comment: Lenard jesus Type: BLOOD SPECIMENOrdering Facility: [facility] Address: [address] [place] [address] Performed By: #### 1 9123-9, 3015-3, , 1987-09 ####[facility] LABORATORYCLIA [id number] [place] [id number] [facility] Creatinine and Glomerular filtration rate.predicted panel (S/P/Bld) 61 mL/min/1.73m??? Normal >=60 [facility] Comment on above: Order Comment: [facility] Type: BLOOD SPECIMENOrdering Facility: [facility] Address: [address] [place] [address] Result Comment: Aaron mated Glomerular Filtration Rate [...] By: #### 1 9123-9, 3015-3, , 1987-09 ####[facility] LABORATORYCLIA [id number] [place] [id number] [place] [facility] Glucose [Mass/Vol] 81 mg/dL Normal 74-99 [facility] Comment on above: Order Comment: [facility] Type: BLOOD SPECIMENOrdering Facility: [facility] Address: [address] [place] [address] Result Comment: The [place] [employer] (ADA) provides guidance for cutoff [...] Standards of Medical Care in Diabetes 2016, [place] [employer]. Diabetes Care. 2016.39(Suppl 1). Performed By: #### 1 9123-9, 3, , 1987-09 ####KO LABORATORYCLIA [id number] [place] [address] [place] Potassium [Moles/Vol] 4.1 mmol/L Normal 3.7-5.1 [facility] Comment on above: Order Comment: Lenard jesus Type: BLOOD SPECIMENOrdering Facility: [facility] Address: [address] [place] [address] Performed By: #### 1 91239, 3015-07, , 1987-09 ####KO LABORATORYCLIA [id number] [place] [address] [place] Protein [Mass/Vol] 6.4 g/dL Normal 6.3-8.0 [facility] Comment on above: Order Comment: Lenard jesus Type: BLOOD SPECIMENOrdering Facility: [facility] Address: [address] [place] [address] Performed By: #### 1 9123-9, 3015-07, , 1987-09 ####KO LABORATORYCLIA [id number] [place] [id number] [place] SARAH Sodium [Moles/Vol] 140 mmol/L Normal 136-144 [facility] Comment on above: Order Comment: Lenard jesus Type: BLOOD SPECIMENOrdering Facility: [facility] Address: [address] [place] [address] Performed By: #### 1 9123-9, 3015-07, , 1987-09 ####KO LABORATORYCLIA [id number] [place] [address] [place] Urea nitrogen [Mass/Vol] 30 mg/dL High 7-21 [facility] Comment on above: Order Comment: Speci men Type: BLOOD SPECIMENOrdering Facility: [facility] Address: [address] [place] [address] [place] [id number] Performed By: #### 1 9123-9, 3, , 1987-09 ####KO LABORATORYCLIA [id number] [place] [address] [place] Magnesium SerPl-mCncon 11-17 Magnesium [Mass/Vol] 1.9 mg/dL Normal 1.7-2.3 [facility] Comment on above: Order Comment: Speci men Type: BLOOD SPECIMENOrdering Facility: [facility] Address: [address] [place] [address] Performed By: #### 1 9123-9, 3015-07, , 1987-09 ####[place] LABORATORYCLIA [id number] [place] [address] [place] TSH SerPl-aCncon 11-18-2023 TSH Qn 3.520 m[IU]/L Normal 0.270-4.200 [facility] Comment on above: Order Comment: Speci men Type: BLOOD SPECIMENOrdering Facility: [facility] Address: [address] [place] [address] [place] [address] Performed By: #### 1 9123-9, 3015-07, , 1987-09 ####KO LABORATORYCLIA [id number] [place] [address] [place] CBC panel Auto (Bld)on 11-16 Erythrocyte distribution width (RBC) [Ratio] 14.2 % Normal 11.5-15.0 [facility] Comment on above: Order Comment: Speci men Type: BLOOD SPECIMENOrdering Facility: [facility] Address: [address] [place] [address] Performed By: #### 5 8410-2 ####[place] LABORATORYCLIA [id number] [address] [place] Hematocrit (Bld) [Volume fraction] 36.8 % Normal 36.0-46.0 [facility] Comment on above: Order Comment: Speci men Type: BLOOD SPECIMENOrdering Facility: [facility] Address: [address] [place] [address] Performed By: #### 5 8410-2 ####KO LABORATORYCLIA [id number] [address] Hemoglobin (Bld) [Mass/Vol] 11.6 g/dL Normal 11.5-15.5 [facility] Comment on above: Order Comment: Speci men Type: BLOOD SPECIMENOrdering Facility: [facility] Address: [address] [place] [address] Performed By: #### 5 8410-2 ####KO LABORATORYCLIA [id number] [address] MCH (RBC) [Entitic mass] 29.1 pg Normal 26.0-34.0 [facility] Comment on above: Order Comment: Speci men Type: BLOOD SPECIMENOrdering Facility: [facility] Address: [address] [place] [address] Performed By: #### 5 8410-2 ####KO LABORATORYCLIA [id number] [address] MCHC (RBC) [Mass/Vol] 31.5 g/dL Normal 30.5-36.0 [facility] Comment on above: Order Comment: Speci men Type: BLOOD SPECIMENOrdering Facility: [facility] Address: [address] [place] [address] Performed By: #### 5 8410-2 ####KO LABORATORYCLIA [id number] [address] MCV (RBC) [Entitic vol] 92.2 fL Normal 80.0-100.0 [facility] Comment on above: Order Comment: Speci men Type: BLOOD SPECIMENOrdering Facility: [facility] Address: [address] [place] [address] Performed By: #### 5 8410-2 ####KO LABORATORYCLIA [id number] [address] Nucleated RBC (Bld) [#/Vol] 10*3/uL Normal <0.01 [facility] Comment on above: Order Comment: Speci men Type: BLOOD SPECIMENOrdering Facility: [facility] Address: [address] [place] [address] Performed By: #### 5 8410-2 ####KO LABORATORYCLIA [id number] [place] [address] [place] Platelet mean volume (Bld) [Entitic vol] 9.8 fL Normal 9.0-12.7 [facility] Comment on above: Order Comment: Speci men Type: BLOOD SPECIMENOrdering Facility: [facility] Address: [address] [place] [address] Performed By: #### 5 8410-2 ####KO LABORATORYCLIA [id number] [place] [address] [place] Platelets (Bld) [#/Vol] 321 10*3/uL Normal 150-400 [facility] Comment on above: Order Comment: Speci men Type: BLOOD SPECIMENOrdering Facility: [facility] Address: [address] [place] [address] Performed By: #### 5 8410-2 ####KO LABORATORYCLIA [id number] [place] [address] [place] RBC (Bld) [#/Vol] 3.99 10*6/uL Normal 3.90-5.20 [facility] Comment on above: Order Comment: Speci men Type: BLOOD SPECIMENOrdering Facility: [facility] Address: [address] [place] [address] Performed By: #### 5 8410-2 ####KO LABORATORYCLIA [id number] [place] [address] [place] WBC (Bld) [#/Vol] 9.28 10*3/uL Normal 3.70-11.00 [facility] Comment on above: Order Comment: Speci men Type: BLOOD SPECIMENOrdering Facility: [facility] Address: [address] [place] [address] Performed By: #### 5 8410-2 ####KO LABORATORYCLIA [id number] [place] [address] [place] Comprehensive metabolic 2000 panelon 11-17-2023 Albumin [Mass/Vol] 3.5 g/dL Low 3.9-4.9 [facility] Comment on above: Order Comment: Speci men Type: BLOOD SPECIMENOrdering Facility: [facility] Address: [address] [place] [address] Performed By: #### 2 432-8, ####KO LABORATORYCLIA [id number] [place] [address] [place] ALP [Catalytic activity/Vol] 56 U/L Normal 34-123 [facility] Comment on above: Order Comment: Speci men Type: BLOOD SPECIMENOrdering Facility: [facility] Address: [address] [place] [address] Performed By: #### 2 4322-8, ####KO LABORATORYCLIA [id number] [address] [place] ALT [Catalytic activity/Vol] 16 U/L Normal 7-38 [facility] Comment on above: Order Comment: Speci men Type: BLOOD SPECIMENOrdering Facility: [facility] Address: [address] [place] [address] Performed By: #### 2 8, ####KO LABORATORYCLIA [id number] [address] [place] Anion gap [Moles/Vol] 5 mmol/L Low 8-15 [facility] Comment on above: Order Comment: Speci men Type: BLOOD SPECIMENOrdering Facility: [facility] Address: [address] [place] [address] Performed By: #### 2 4322-8, ####KO LABORATORYCLIA [id number] [place] [id number] [place] AST [Catalytic activity/Vol] 16 U/L Normal 13-35 [facility] Comment on above: Order Comment: Speci men Type: BLOOD SPECIMENOrdering Facility: [facility] Address: [address] [place] [address] Performed By: #### 2 4322-8, 20307-4 ####KO LABORATORYCLIA [id number] [place] [address] [place] Bilirubin [Mass/Vol] 0.4 mg/dL Normal 0.2-1.3 [facility] Comment on above: Order Comment: Speci men Type: BLOOD SPECIMENOrdering Facility: [facility] Address: [address] [place] [address] Performed By: #### 2 4323-8, ####KO LABORATORYCLIA [id number] [place] [address] [place] Calcium [Mass/Vol] 8.5 mg/dL Normal 8.5-10.2 [facility] Comment on above: Order Comment: Speci men Type: BLOOD SPECIMENOrdering Facility: [facility] Address: [address] [place] [address] Performed By: #### 2 4323-8, ####KO LABORATORYCLIA [id number] [place] [address] [place] Chloride [Moles/Vol] 110 mmol/L High 98-107 [facility] Comment on above: Order Comment: Speci men Type: BLOOD SPECIMENOrdering Facility: [facility] Address: [address] [place] [address] Performed By: #### 2 4323-8, ####KO LABORATORYCLIA [id number] [place] [address] [place] CO2 [Moles/Vol] 28 mmol/L Normal 22-30 [facility] Comment on above: Order Comment: Speci men Type: BLOOD SPECIMENOrdering Facility: [facility] Address: [address] [place] [address] Performed By: #### 2 4323-8, ####KO LABORATORYCLIA [id number] [place] [address] [place] Creatinine [Mass/Vol] 1.05 mg/dL High 0.58-0.96 [facility] Comment on above: Order Comment: Speci men Type: BLOOD SPECIMENOrdering Facility: [facility] Address: [address] [place] [address] Performed By: #### 2 4323-8, ####KO LABORATORYCLIA [id number] [place] [address] [place] Creatinine and Glomerular filtration rate.predicted panel (S/P/Bld) 55 mL/min/1.73m??? Low >=60 [facility] Comment on above: Order Comment: Lenard jesus Type: BLOOD SPECIMENOrdering Facility: [facility] Address: [address] [place] [address] Result Comment: Aaron mated Glomerular Filtration Rate [...] Performed By: #### 2 4323-8, ####KO LABORATORYCLIA [id number] [place] [id number] [place] Glucose [Mass/Vol] 79 mg/dL Normal 74-99 [facility] Comment on above: Order Comment: Lenard jesus Type: BLOOD SPECIMENOrdering Facility: [facility] Address: [address] [place] [address] Result Comment: The [place] [employer] (ADA) provides guidance for cutoff [...] Standards of Medical Care in Diabetes 2016, [place] [employer]. Diabetes Care. 2016.39(Suppl 1). Performed By: #### 2 4323-8, ####KO LABORATORYCLIA [id number] [place] [address] [place] Potassium [Moles/Vol] 4.8 mmol/L Normal 3.7-5.1 [facility] Comment on above: Order Comment: Speci men Type: BLOOD SPECIMENOrdering Facility: [facility] Address: [address] [place] [id number] Performed By: #### 2 4323-8, ####KO LABORATORYCLIA [id number] [place] [address] [place] Protein [Mass/Vol] 6.0 g/dL Low 6.3-8.0 [facility] Comment on above: Order Comment: Speci men Type: BLOOD SPECIMENOrdering Facility: [facility] Address: [address] [place] [address] [place] [address] Performed By: #### 2 432-8, ####KO LABORATORYCLIA [id number] [place] [address] [place] Sodium [Moles/Vol] 143 mmol/L Normal 136-144 [facility] Comment on above: Order Comment: Speci men Type: BLOOD SPECIMENOrdering Facility: [facility] Address: [address] [place] [address] Performed By: #### 2 4323-8, ####KO LABORATORYCLIA [id number] [place] [address] [place] Urea nitrogen [Mass/Vol] 34 mg/dL High 7-21 [facility] Comment on above: Order Comment: Speci men Type: BLOOD SPECIMENOrdering Facility: [facility] Address: [address] [place] [id number] Performed By: #### 2 4323-8, ####KO LABORATORYCLIA [id number] [place] [address] [place] Magnesium SerPl-mCncon 11-16 Magnesium [Mass/Vol] 2.0 mg/dL Normal 1.7-2.3 [facility] Comment on above: Order Comment: Speci men Type: BLOOD SPECIMENOrdering Facility: [facility] Address: [address] [place] [address] Performed By: #### 2 432-8, ####KO LABORATORYCLIA [id number] [address] CBC panel Auto (Bld)on 11-15 Erythrocyte distribution width (RBC) [Ratio] 14.3 % Normal 11.5-15.0 [facility] Comment on above: Order Comment: Speci men Type: BLOOD SPECIMENOrdering Facility: [facility] Address: [address] [place] [address] Performed By: #### 5 8410-2 ####KO LABORATORYCLIA [id number] [address] Hematocrit (Bld) [Volume fraction] 37.4 % Normal 36.0-46.0 [facility] Comment on above: Order Comment: Speci men Type: BLOOD SPECIMENOrdering Facility: [facility] Address: [address] [place] [address] Performed By: #### 5 8410-2 ####OK LABORATORYCLIA [id number] [address] Hemoglobin (Bld) [Mass/Vol] 11.8 g/dL Normal 11.5-15.5 [facility] Comment on above: Order Comment: Speci men Type: BLOOD SPECIMENOrdering Facility: [facility] Address: [address] [place] [address] Performed By: #### 5 8410-2 ####KO LABORATORYCLIA [id number] [address] MCH (RBC) [Entitic mass] 28.9 pg Normal 26.0-34.0 [facility] Comment on above: Order Comment: Speci men Type: BLOOD SPECIMENOrdering Facility: [facility] Address: [address] [place] [address] Performed By: #### 5 8410-2 ####KO LABORATORYCLIA [id number] [address] MCHC (RBC) [Mass/Vol] 31.6 g/dL Normal 30.5-36.0 [facility] Comment on above: Order Comment: Speci men Type: BLOOD SPECIMENOrdering Facility: [facility] Address: [address] [place] [address] Performed By: #### 5 8410-2 ####KO LABORATORYCLIA [id number] [address] [place] MCV (RBC) [Entitic vol] 91.4 fL Normal 80.0-100.0 [facility] Comment on above: Order Comment: Speci men Type: BLOOD SPECIMENOrdering Facility: [facility] Address: [address] [place] [address] Performed By: #### 5 8410-2 ####KO LABORATORYCLIA [id number] [address] Nucleated RBC (Bld) [#/Vol] 10*3/uL Normal <0.01 [facility] Comment on above: Order Comment: Speci men Type: BLOOD SPECIMENOrdering Facility: [facility] Address: [address] [place] [address] Performed By: #### 5 8410-2 ####KO LABORATORYCLIA [id number] [address] [place] Platelet mean volume (Bld) [Entitic vol] 10.1 fL Normal 9.0-12.7 [facility] Comment on above: Order Comment: Speci men Type: BLOOD SPECIMENOrdering Facility: [facility] Address: [address] [place] [address] Performed By: #### 5 8410-2 ####KO LABORATORYCLIA [id number] [address] [place] Platelets (Bld) [#/Vol] 356 10*3/uL Normal 150-400 [facility] Comment on above: Order Comment: Speci men Type: BLOOD SPECIMENOrdering Facility: [facility] Address: [address] [place] [address] Performed By: #### 5 8410-2 ####KO LABORATORYCLIA [id number] [place] [address] [facility] [place] RBC (Bld) [#/Vol] 4.09 10*6/uL Normal 3.90-5.20 [facility] Comment on above: Order Comment: Speci men Type: BLOOD SPECIMENOrdering Facility: [facility] Address: [address] [place] [address] Performed By: #### 5 8410-2 ####KO LABORATORYCLIA [id number] [place], [place] [address] [place] [address] [facility] WBC (Bld) [#/Vol] 13.58 10*3/uL High 3.70-11.00 [facility] Comment on above: Order Comment: Speci men Type: BLOOD SPECIMENOrdering Facility: [facility] Address: [address] [place] [address] [place] [id number] Performed By: #### 5 8410-2 ####KO LABORATORYCLIA [id number] [address] Comprehensive metabolic 2000 panelon 11-16-2023 Albumin [Mass/Vol] 3.4 g/dL Low 3.9-4.9 [facility] Comment on above: Order Comment: Speci men Type: BLOOD SPECIMENOrdering Facility: [facility] Address: [address] [place], [place] [address] [address] Performed By: #### 2 4323-8, ####KO LABORATORYCLIA [id number] [address] OF [facility] ALP [Catalytic activity/Vol] 58 U/L Normal 34-123 [facility] Comment on above: Order Comment: Speci men Type: BLOOD SPECIMENOrdering Facility: [facility] Address: [address] [place] [id number] Performed By: #### 2 4323-8, 43979-9 ####KO LABORATORYCLIA [id number] [place] [id number] [facility] ALT [Catalytic activity/Vol] 15 U/L Normal 7-38 [facility] Comment on above: Order Comment: Speci men Type: BLOOD SPECIMENOrdering Facility: [facility] Address: [address] [place] [id number] Performed By: #### 2 4323-8, 53128-7 ####KO LABORATORYCLIA [id number] [place] [id number] [facility] [place] Anion gap [Moles/Vol] 10 mmol/L Normal 8-15 [facility] Comment on above: Order Comment: Speci men Type: BLOOD SPECIMENOrdering Facility: [facility] Address: [address] [place] [address] Performed By: #### 2 4323-8, ####KO LABORATORYCLIA [id number] [address] [place] AST [Catalytic activity/Vol] 16 U/L Normal 13-35 [facility] Comment on above: Order Comment: Speci men Type: BLOOD SPECIMENOrdering Facility: [facility] Address: [address] [place], [place] [address] [address] Performed By: #### 2 432-8, ####KO LABORATORYCLIA [id number] [address] [place] Bilirubin [Mass/Vol] 0.3 mg/dL Normal 0.2-1.3 [facility] Comment on above: Order Comment: Speci men Type: BLOOD SPECIMENOrdering Facility: [facility] Address: [address] [place] [address] Performed By: #### 2 8, ####KO LABORATORYCLIA [id number] [address] [place] Calcium [Mass/Vol] 8.6 mg/dL Normal 8.5-10.2 [facility] Comment on above: Order Comment: Speci men Type: BLOOD SPECIMENOrdering Facility: [facility] Address: [address] [place] [address] Performed By: #### 2 432-8, ####KO LABORATORYCLIA [id number] [place] [address] [place] Chloride [Moles/Vol] 105 mmol/L Normal 98-107 [facility] Comment on above: Order Comment: Speci men Type: BLOOD SPECIMENOrdering Facility: [facility] Address: [address] [place] [address] Performed By: #### 2 432-8, ####KO LABORATORYCLIA [id number] [place] [id number] [place] CO2 [Moles/Vol] 25 mmol/L Normal 22-30 [facility] Comment on above: Order Comment: Lenard jesus Type: BLOOD SPECIMENOrdering Facility: [facility] Address: [address] [place] [address] Performed By: #### 2 4323-8, ####KO LABORATORYCLIA [id number] [place] [address] [place] Creatinine [Mass/Vol] 1.28 mg/dL High 0.58-0.96 [facility] Comment on above: Order Comment: Speci men Type: BLOOD SPECIMENOrdering Facility: [facility] Address: [address] [place] [address] Performed By: #### 2 4323-8, ####KO LABORATORYCLIA [id number] [address] Creatinine and Glomerular filtration rate.predicted panel (S/P/Bld) 43 mL/min/1.73m??? Low >=60 [facility] Comment on above: Order Comment: Speci men Type: BLOOD SPECIMENOrdering Facility: [facility] Address: [address] [place] [address] Result Comment: Aaron mated Glomerular Filtration Rate [...] Performed By: #### 2 4323-8, ####KO LABORATORYCLIA [id number] [place] [id number] [place] Glucose [Mass/Vol] 121 mg/dL High 74-99 [facility] Comment on above: Order Comment: Ernestinei edin Type: BLOOD SPECIMENOrdering Facility: [facility] Address: [address] [place] [address] Result Comment: The [place] [employer] (ADA) provides guidance for cutoff [...] Standards of Medical Care in Diabetes 2016, [place] [employer]. Diabetes Care. 2016.39(Suppl 1). Performed By: #### 2 4328, ####KO LABORATORYCLIA [id number] [place] [address] [place] Potassium [Moles/Vol] 4.7 mmol/L Normal 3.7-5.1 [facility] Comment on above: Order Comment: Lenard jesus Type: BLOOD SPECIMENOrdering Facility: [facility] Address: [address] [place] [address] Performed By: #### 2 4322-12, ####KO LABORATORYCLIA [id number] [place] [address] [place] Protein [Mass/Vol] 6.3 g/dL Normal 6.3-8.0 [facility] Comment on above: Order Comment: Lenard jesus Type: BLOOD SPECIMENOrdering Facility: [facility] Address: [address] [place] [address] Performed By: #### 2 4322-12, ####KO LABORATORYCLIA [id number] [place] [address] [place] Sodium [Moles/Vol] 140 mmol/L Normal 136-144 [facility] Comment on above: Order Comment: Lenard jesus Type: BLOOD SPECIMENOrdering Facility: [facility] Address: [address] [place] [address] Performed By: #### 2 4328, ####KO LABORATORYCLIA [id number] [place] [address] [place] Urea nitrogen [Mass/Vol] 46 mg/dL High 7-21 [facility] Comment on above: Order Comment: Speci men Type: BLOOD SPECIMENOrdering Facility: [facility] Address: [address] [place], [place] [address] Performed By: #### 2 4323-8, 46502-5 ####[facility] LABORATORYCLIA [id number] [place] [address] [facility] [place] Magnesium SerPl-mCncon 11-15 Magnesium [Mass/Vol] 2.1 mg/dL Normal 1.7-2.3 [facility] Comment on above: Order Comment: Speci men Type: BLOOD SPECIMENOrdering Facility: [facility] Address: [address] [place] [address] Performed By: #### 2 4323-8, ####HEBBRON[place] LABORATORYCLIA [id number] [place] [address] [facility] NURSING PROGon 11-16-2023 NURSING PROG HNO ID: [id number] Author: MISTY ASCENCIO, CARO Service: Nursing Author Type: Registered Nurse Type: Nursing Progress Note Filed: 11/16/2023 14:15 Note Text: PATIENT EDUCATION HEART FAILURE PATIENT NAME: Sandra Schmitz PATIENT LOCATION: [place] [address] [address] SURVIVAL SKILLS: Low Sodium Diet Weight Monitoring [...] rehab post insertion of pacemaker/defib. Follows [facility] ,as well as, [facility]ology team. States she missed her echo [...] (RECOMMENDATION): Cardiology Electronically Signed By: Misty Ascencio [facility]: [id number] Author: JESUS PADILLA RT(R) Service: Radiology Author [...] PATIENT PRESENTS WITH AN IMPLANTABLE OR ATTACHED COTTON CLEANER: No RADIOLOGY DEPARTMENT: General X-ray: Exam(s) Completed: Chest X-Ray PERIPHERAL IV DATA: Not applicable SIGNED BY: RT William(R) November 15, 2023 8:26 PM [facility] HNO ID: [id number] Author: MASON VAIL RT(R) Service: Radiology Author [...] PATIENT PRESENTS WITH AN IMPLANTABLE OR ATTACHED COTTON CLEANER: No RADIOLOGY DEPARTMENT: CT; Exam(s) Completed: Abdomen/Pelvis and Brain PERIPHERAL IV DATA: Inpatient: see LDA documentation SIGNED BY: RT Dominique(R) November 15, 2023 8:05 PM Normal [facility] CBC W Auto Differential pane l (Bld)on 11-15-2023 Basophils (Bld) [#/Vol] 0.10 10*3/uL Normal <0.11 [facility] Comment on above: Order Comment: Speci men Type: BLOOD SPECIMENOrdering Facility: [facility] Address: [address] [place] [address] Performed By: #### 5 7021-8 ####KO LABORATORYCLIA [id number] [place] [address] [place] Basophils/100 WBC (Bld) 0.6 % Normal [facility] Comment on above: Order Comment: Speci men Type: BLOOD SPECIMENOrdering Facility: [facility] Address: [address] [place] [address] Performed By: #### 5 7021-8 ####KO LABORATORYCLIA [id number] [place] [address] [place] Differential cell count method Nom (Bld) Auto Normal [facility] Comment on above: Order Comment: Speci men Type: BLOOD SPECIMENOrdering Facility: [facility] Address: [address] [place] [address] Performed By: #### 5 7021-8 ####KO LABORATORYCLIA [id number] [address] [place] Eosinophils (Bld) [#/Vol] 0.22 10*3/uL Normal <0.46 [facility] Comment on above: Order Comment: Speci men Type: BLOOD SPECIMENOrdering Facility: [facility] Address: [address] [place] [address] Performed By: #### 5 7021-8 ####KO LABORATORYCLIA [id number] [address] Eosinophils/100 WBC (Bld) 1.4 % Normal [facility] Comment on above: Order Comment: Speci men Type: BLOOD SPECIMENOrdering Facility: [facility] Address: [address] [place] [address] Performed By: #### 5 7021-8 ####KO LABORATORYCLIA [id number] [address] [place] Erythrocyte distribution width (RBC) [Ratio] 14.3 % Normal 11.5-15.0 [facility] Comment on above: Order Comment: Speci men Type: BLOOD SPECIMENOrdering Facility: [facility] Address: [address] [place] [address] Performed By: #### 5 7021-8 ####KO LABORATORYCLIA [id number] [address] Hematocrit (Bld) [Volume fraction] 43.3 % Normal 36.0-46.0 [facility] Comment on above: Order Comment: Speci men Type: BLOOD SPECIMENOrdering Facility: [facility] Address: [address] [place] [address] Performed By: #### 5 7021-8 ####KO LABORATORYCLIA [id number] [address] [place] Hemoglobin (Bld) [Mass/Vol] 13.8 g/dL Normal 11.5-15.5 [facility] Comment on above: Order Comment: Speci men Type: BLOOD SPECIMENOrdering Facility: [facility] Address: [address] [place] [address] Performed By: #### 5 7021-8 ####KO LABORATORYCLIA [id number] [place] [address] [place] Immature granulocytes (Bld) [#/Vol] 0.25 10*3/uL High <0.10 [facility] Comment on above: Order Comment: Speci men Type: BLOOD SPECIMENOrdering Facility: [facility] Address: [address] [place] [address] Performed By: #### 5 7021-8 ####KO LABORATORYCLIA [id number] [address] [place] [facility] Immature granulocytes/100 WBC (Bld) 1.6 % Normal [facility] Comment on above: Order Comment: Speci men Type: BLOOD SPECIMENOrdering Facility: [facility] Address: [address] [place] [address] Performed By: #### 5 7021-8 ####KO LABORATORYCLIA [id number] [address] [place] Lymphocytes (Bld) [#/Vol] 2.35 10*3/uL Normal 1.00-4.00 [facility] Comment on above: Order Comment: Speci men Type: BLOOD SPECIMENOrdering Facility: [facility] Address: [address] [place] [address] Performed By: #### 5 7021-8 ####KO LABORATORYCLIA [id number] [address] Lymphocytes/100 WBC (Bld) 15.0 % Normal [facility] Comment on above: Order Comment: Speci men Type: BLOOD SPECIMENOrdering Facility: [facility] Address: [address] [place] [address] Performed By: #### 5 7021-8 ####KO LABORATORYCLIA [id number] [place] [address] [place] MCH (RBC) [Entitic mass] 29.3 pg Normal 26.0-34.0 [facility] Comment on above: Order Comment: Speci men Type: BLOOD SPECIMENOrdering Facility: [facility] Address: [address] [place] [address] Performed By: #### 5 7021-8 ####KO LABORATORYCLIA [id number] [place] [id number] [place] MCHC (RBC) [Mass/Vol] 31.9 g/dL Normal 30.5-36.0 [facility] Comment on above: Order Comment: Speci men Type: BLOOD SPECIMENOrdering Facility: [facility] Address: [address] [place] [address] Performed By: #### 5 7021-8 ####KO LABORATORYCLIA [id number] [place] [address] [place] MCV (RBC) [Entitic vol] 91.9 fL Normal 80.0-100.0 [facility] Comment on above: Order Comment: Speci men Type: BLOOD SPECIMENOrdering Facility: [facility] Address: [address] [place] [address] Performed By: #### 5 7021-8 ####KO LABORATORYCLIA [id number] [place] [address] [place] Monocytes (Bld) [#/Vol] 1.05 10*3/uL High <0.87 [facility] Comment on above: Order Comment: Speci men Type: BLOOD SPECIMENOrdering Facility: [facility] Address: [address] [place] [address] Performed By: #### 5 7021-8 ####KO LABORATORYCLIA [id number] [address] Monocytes/100 WBC (Bld) 6.7 % Normal [facility] Comment on above: Order Comment: Speci men Type: BLOOD SPECIMENOrdering Facility: [facility] Address: [address] [place] [address] Performed By: #### 5 7021-8 ####KO LABORATORYCLIA [id number] [place] [id number] [place] Neutrophils (Bld) [#/Vol] 11.69 10*3/uL High 1.45-7.50 [facility] Comment on above: Order Comment: Speci men Type: BLOOD SPECIMENOrdering Facility: [facility] Address: [address] [place] [address] Performed By: #### 5 7021-8 ####KO LABORATORYCLIA [id number] [address] Neutrophils/100 WBC (Bld) 74.7 % Normal [facility] Comment on above: Order Comment: Speci men Type: BLOOD SPECIMENOrdering Facility: [facility] Address: [address] [place] [address] Performed By: #### 5 7021-8 ####KO LABORATORYCLIA [id number] [place] [address] [place] Nucleated RBC (Bld) [#/Vol] 10*3/uL Normal <0.01 [facility] Comment on above: Order Comment: Speci men Type: BLOOD SPECIMENOrdering Facility: [facility] Address: [address] [place] [address] Performed By: #### 5 7021-8 ####KO LABORATORYCLIA [id number] [address] STATES [facility] Nucleated RBC/100 WBC (Bld) [Ratio] 0.0 /100 WBC Normal [facility] Comment on above: Order Comment: Speci men Type: BLOOD SPECIMENOrdering Facility: [facility] Address: [address] [place] [address] Performed By: #### 5 7021-8 ####KO LABORATORYCLIA [id number] [address] [place] Platelet mean volume (Bld) [Entitic vol] 10.4 fL Normal 9.0-12.7 [facility] Comment on above: Order Comment: Speci men Type: BLOOD SPECIMENOrdering Facility: [facility] Address: [address] [place] [address] Performed By: #### 5 7021-8 ####KO LABORATORYCLIA [id number] [address] [place] Platelets (Bld) [#/Vol] 386 10*3/uL Normal 150-400 [facility] Comment on above: Order Comment: Speci men Type: BLOOD SPECIMENOrdering Facility: [facility] Address: [address] [facility] [place] [address] Performed By: #### 5 7021-8 ####KO LABORATORYCLIA [id number] [place] [address] [place] RBC (Bld) [#/Vol] 4.71 10*6/uL Normal 3.90-5.20 [facility] Comment on above: Order Comment: Speci men Type: BLOOD SPECIMENOrdering Facility: [facility] Address: [address] [place] [address] Performed By: #### 5 7021-8 ####KO LABORATORYCLIA [id number] [place] [address] [place] WBC (Bld) [#/Vol] 15.66 10*3/uL High 3.70-11.00 [facility] Comment on above: Order Comment: Speci men Type: BLOOD SPECIMENOrdering Facility: [facility] Address: [address] [place] [address] Performed By: #### 5 7021-8 ####[place] LABORATORYCLIA [id number] [address] OF [facility] CT ABD/PEL WO IVCONon 2023 CT ABD/PEL WO IVCON * * *Final Report* * * DATE OF EXAM: Nov 15 2023 8:16PM [facility] 0531 - CT ABD/PEL WO IVCON / [...] Additional findings as detailed in the report. Income Tax Administrator: PSCB Transcribe Date/Time: Nov 15 2023 8:42P Dictated by : PATRICIA GARCÍA MD This examination was interpreted and the report reviewed and electronically signed by: PATRICIA GARCÍA MD on Nov 15 2023 8:44PM EST [id number] [facility] CT BRAIN WO IVCONon 11-15-19 CT BRAIN WO IVCON * * *Final Report* * * DATE OF EXAM: Nov 15 2023 8:16PM [facility] 0504 - CT BRAIN WO IVCON / [...] parenchymal volume loss. Additional findings as detailed. Income Tax Administrator: KEYANA Transcribe Date/Time: Nov 15 2023 8:44P Dictated by : PATRICIA GARCÍA MD This examination was interpreted and the report reviewed and electronically signed by: PATRICIA GARCÍA MD on Nov 15 2023 8:46PM EST [id number] Normal [facility] Comprehensive metabolic 2000 panelon 11-15-2023 Albumin [Mass/Vol] 3.9 g/dL Normal 3.9-4.9 [facility] Comment on above: Order Comment: Lenard jesus Type: BLOOD SPECIMENOrdering Facility: [facility] Address: [address] [place] [address] Performed By: #### 2 4323-8, 3040-3, 38733-2, 43019-3, [id number] ####[place] LABORATORYCLIA [id number] [place] [address] [place] ALP [Catalytic activity/Vol] 64 U/L Normal 34-123 [facility] Comment on above: Order Comment: Lenard jesus Type: BLOOD SPECIMENOrdering Facility: [facility] Address: [address] [place] [address] Performed By: #### 2 4323-8, 3040-3, 79623-9, 73755-6, [id number] ####[place] LABORATORYCLIA [id number] [place] [id number] [place] ALT [Catalytic activity/Vol] 14 U/L Normal 7-38 [facility] Comment on above: Order Comment: Lenard jesus Type: BLOOD SPECIMENOrdering Facility: [facility] Address: [address] [place] [address] Performed By: #### 2 4323-8, 3040-3, 26593-1, 07831-1, [id number] ####[place] LABORATORYCLIA [id number] [place] [id number] [place] Anion gap [Moles/Vol] 11 mmol/L Normal 8-15 [facility] Comment on above: Order Comment: Speci men Type: BLOOD SPECIMENOrdering Facility: [facility] Address: [address] [place] [address] Performed By: #### 2 4323-8, 3040-3, 62521-5, 98646-5, [id number] ####[place] LABORATORYCLIA [id number] [place] [address] [place] AST [Catalytic activity/Vol] Normal [facility] Comment on above: Order Comment: Speci men Type: BLOOD SPECIMENOrdering Facility: [facility] Address: [address] [place] [address] Result Comment: Unab le to assay due to interference from hemolysis. Suggest reorder as clinically indicated. Performed By: #### 2 4323-8, 3040-3, 92664-4, 77812-2, [id number] ####[place] LABORATORYCLIA [id number] [place] [address] [place] Bilirubin [Mass/Vol] 0.3 mg/dL Normal 0.2-1.3 [facility] Comment on above: Order Comment: Speci men Type: BLOOD SPECIMENOrdering Facility: [facility] Address: [address] [place] [address] Performed By: #### 2 4323-8, 3040-3, 62413-6, 33320-0, [id number] ####[place] LABORATORYCLIA [id number] [place] [address] [place] Calcium [Mass/Vol] 9.5 mg/dL Normal 8.5-10.2 [facility] Comment on above: Order Comment: Speci men Type: BLOOD SPECIMENOrdering Facility: [facility] Address: [address] [place] [address] Performed By: #### 2 4323-8, 3040-3, 51037-3, 13070-7, [id number] ####[place] LABORATORYCLIA [id number] [place] [address] [place] Chloride [Moles/Vol] 100 mmol/L Normal 98-107 [facility] Comment on above: Order Comment: Specjeffy men Type: BLOOD SPECIMENOrdering Facility: [facility] Address: [address] [place] [address] Performed By: #### 2 4323-8, 3040-3, 14752-7, 87317-4, [id number] ####[place] LABORATORYCLIA [id number] [place] [address] [place] CO2 [Moles/Vol] 28 mmol/L Normal 22-30 [facility] Comment on above: Order Comment: Speci men Type: BLOOD SPECIMENOrdering Facility: [facility] Address: [address] [place], [place] [address] Performed By: #### 2 4323-8, 3040-3, 17876-8, 89481-5, [id number] ####[place] LABORATORYCLIA [id number] [place] [id number] [place] Creatinine [Mass/Vol] 1.94 mg/dL High 0.58-0.96 [facility] Comment on above: Order Comment: Speci men Type: BLOOD SPECIMENOrdering Facility: [facility] Address: [address] [place], [place] [address] Performed By: #### 2 4323-8, 3040-3, 66360-4, 68501-7, [id number] ####[place] LABORATORYCLIA [id number] [place] [id number] [facility] Creatinine and Glomerular filtration rate.predicted panel (S/P/Bld) 26 mL/min/1.73m??? Low >=60 [facility] Comment on above: Order Comment: Spec men Type: BLOOD SPECIMENOrdering Facility: [facility] Address: [address] [place], [place] [address] Result Comment: Aaron mated Glomerular Filtration Rate [...] GFR. Performed By: #### 2 4323-8, 3040-3, 62818-1, 54899-9, [id number] ####KO LABORATORYCLIA [id number] [place] [address] [place] Glucose [Mass/Vol] 147 mg/dL High 74-99 [facility] Comment on above: Order Comment: Lenard jeuss Type: BLOOD SPECIMENOrdering Facility: [facility] Address: [address] [place] [address] Result Comment: The [place] [employer] (ADA) provides guidance for cutoff [...] Standards of Medical Care in Diabetes 2016, [place] [employer]. Diabetes Care. 2016.39(Suppl 1). Performed By: #### 2 4323-8, 3040-3, 40007-7, 46242-7, [id number] ####KO LABORATORYCLIA [id number] [place] [id number] [place] Potassium [Moles/Vol] 4.5 mmol/L Normal 3.7-5.1 [facility] Comment on above: Order Comment: Lenard jesus Type: BLOOD SPECIMENOrdering Facility: [facility] Address: [address] [place] [id number] Performed By: #### 2 4323-8, 3040-3, 67525-2, 51634-9, [id number] ####[place] LABORATORYCLIA [id number] [place] [id number] [place] Protein [Mass/Vol] 7.5 g/dL Normal 6.3-8.0 [facility] Comment on above: Order Comment: Lenard jesus Type: BLOOD SPECIMENOrdering Facility: [facility] Address: [address] [place] [address] Performed By: #### 2 4323-8, 3040-3, 12532-4, 39265-5, [id number] ####[place] LABORATORYCLIA [id number] [address] STATES [facility] Sodium [Moles/Vol] 139 mmol/L Normal 136-144 [facility] Comment on above: Order Comment: Speci men Type: BLOOD SPECIMENOrdering Facility: [facility] Address: [address] [place], [place] [address] Performed By: #### 2 4323-8, 3040-3, 33865-7, 64718-9, [id number] ####KO LABORATORYCLIA [id number] [address] Urea nitrogen [Mass/Vol] 50 mg/dL High 7-21 [facility] Comment on above: Order Comment: Speci men Type: BLOOD SPECIMENOrdering Facility: [facility] Address: [address] [place] [address] Performed By: #### 2 4323-8, 3040-3, 22090-7, 77800-0, [id number] ####[place] LABORATORYCLIA [id number] [address] D dimer FEU PPP-mCncon 11-14 Fibrin D-dimer FEU (PPP) [Mass/Vol] 620 ng/mL FEU High <500 [facility] Comment on above: Order Comment: Speci men Type: BLOOD SPECIMENOrdering Facility: [facility] Address: [address] [place] [address] Performed By: #### 4 8065-7, 95455-5, 40418-2 ####[place] LABORATORYCLIA [id number] [place] [id number] [facility] ED NOTEon 11-15-2023 ED NOTE HNO ID: [id number] Author: CHALO CHAIDEZ, CARO Service: ? Author Type: Registered Nurse Type: ED Notes Filed: 11/15/2023 22:21 Note Text: Verbal phone report was provided to Josette on . The pt remains stable for transport to the floor for admission. NAD noted at this time. Belongings list was completed. Medic to transport. [facility] ED NOTE HNO ID: [id number] Author: CHALO CHAIDEZ RN Service: ? Author Type: Registered Nurse Type: ED Notes Filed: 11/15/2023 22:07 Note Text: Heads up called to -[place] charge nurse (Spoke with Singh) [facility] ED PROV NOTEon 11-15-2023 ED PROV NOTE HNO ID: [id number] Author: ISIAH CHOI MD Service: Emergency Medicine [...] on chronic systolic CHF (congestive heart failure) ([facility]) 05/03/2020 Aspiration pneumonia ([facility]) 05/30/2020 Chest pain 05/03/2020 Chest pressure 01/23/2013 Chronic diastolic congestive heart failure (HCC) 02/14/2021 Clostridium difficile diarrhea 09/28/2020 Complete uterovaginal prolapse Cystocele, midline Essential hypertension 06/14/2020 Homozygous Factor V Leiden mutation ([facility]) 05/03/2020 Hypothyroidism IBS (irritable bowel syndrome) 01/23/2013 [...] No gallop. (more content not included)... [facility] EKGon 11-15-2023 Electrocardiogram Ventricular Rate : 5 9 BPM Atrial Rate : 59 BPM P-R Interval : 114 ms QRS Duration : 122 ms Q-T Interval : 490 ms QTC Calculation(Bazett) : 485 ms Calculated P [place] : 27 degrees Calculated R [place] : -60 degrees Calculated T [place] : 78 degrees Atrial-sensed ventricular-paced rhythm ABNORMAL ECG When compared with selected ECG of 10-Jul-2023 07:12, ELECTRONIC VENTRICULAR PACEMAKER HAS REPLACED SINUS RHYTHM no STEMI Confirmed by MD CHOI EDWARD.S ([id number]) on 11/15/2023 7:34:54 PM NAME : SANDRA SCHMITZ PID : [id number] : 1945 Gender : Female Race : ORD : Procedure Date : Nov 15 2023 19:27:04 Edit Date : Nov 15 2023 19:34:59 Diagnosis: Atrial-sensed ventricular-paced rhythm ABNORMAL ECG When compared with selected ECG of 10-Jul-2023 07:12, ELECTRONIC VENTRICULAR PACEMAKER HAS REPLACED SINUS RHYTHM no STEMI Confirmed by MD CHOI EDWARD.S ([id number]) on 11/15/2023 7:34:54 PM Test Reason : Location : 1 : ER ED Overread By : MD CHOI EDWARD.S Edited By : MD CHOI EDWARD.Eileen Referred By : , Acquired by : WENCESLAO RN, [facility] FLUABV+SARS-CoV-2+RSV Pnl Re sp PRECIOUS+probeon 11-15-2023 FLUABV+SARS-CoV-2+RSV Pnl Resp PRECIOUS+probe COVID 19 RESULT: Not detected The method used is RT-PCR or an equivalent NAAT method. Reference Range(the expected result in uninfected individuals): Not detected INFLUENZA A PCR: Not detected INFLUENZA B PCR: Not detected RSV PCR: Not detected Normal [facility] Comment on above: Performed By: #### 9 5941-1 ####[place] LABORATORYCLIA [id number] [place] [address] [place] Fibrin D-dimer FEU (PPP) [Ma ss/Vol]on 11-15-2023 D DIMER AGE-RELATED CUTOFF 770 ng/mL FEU Normal [facility] Comment on above: Order Comment: Lenard jesus Type: BLOOD SPECIMENOrdering Facility: [facility] Address: [address] [place] [address] Performed By: #### 4 8065-7, 12603-5, 68962-6 ####[place] LABORATORYCLIA [id number] [address] [place] Gas and Carbon monoxide pane l (BldV)on 11-15-2023 Base excess Calc (BldV) [Moles/Vol] 2 mmol/L Normal 0-2 [facility] Comment on above: Order Comment: Lenard jesus Type: VENOUS BLOOD SPECIMENOrdering Facility: [facility] Address: [address] [place] [address] Performed By: #### 2 4344-4 ####[place] RESPIRATORYCLIA [id number] [facility]IR[facility] [id number] [place] [address] Carboxyhemoglobin (BldV) [Mass fraction] <1.0 Normal 0.0-2.0 [facility] Comment on above: Order Comment: Lenard jesus Type: VENOUS BLOOD SPECIMENOrdering Facility: [facility] Address: [address] [place] [address] Result Comment: Carb oxyhemoglobin Reference Range for Smokers: 2.0-8.0% Performed By: #### 2 4344-4 ####[place] RESPIRATORYCLIA [id number] [facility] [id number] [address] [address] CO2 (BldV) [Partial pressure] 46 mm[Hg] Normal 42-55 [facility] Comment on above: Order Comment: Speci men Type: VENOUS BLOOD SPECIMENOrdering Facility: [facility] Address: [address] [place] [address] Performed By: #### 2 4344-4 ####KO RESPIRATORYCLIA [id number] [facility] [id number] [address] [address] CO2 adjusted to patient's actual temperature (BldV) [Partial pressure] Normal [facility] Comment on above: Order Comment: Speci men Type: VENOUS BLOOD SPECIMENOrdering Facility: [facility] Address: [address] [place] [address] Performed By: #### 2 4344-4 ####[place] RESPIRATORYROCKINGH[facility] [id number] [facility] RESPIRATORY [id number] [address] [address] HCO3 (Bld) [Moles/Vol] 27 mmol/L Normal 24-28 [facility] Comment on above: Order Comment: Speci men Type: VENOUS BLOOD SPECIMENOrdering Facility: [facility] Address: [address] [place] [address] Performed By: #### 2 4344-4 ####[place] RESPIRATORYROCKINGHAM [facility] [id number] [facility]OSP[facility] RESPIRATORY [id number] [address] [address] Hemoglobin (Bld) [Mass/Vol] 13.0 g/dL Normal 11.5-15.5 [facility] Comment on above: Order Comment: Speci men Type: VENOUS BLOOD SPECIMENOrdering Facility: [facility] Address: [address] [place] [address] Performed By: #### 2 4344-4 ####[place] RESPIRATORYROCKINGHAM [facility] [id number] [facility] RESPIRAT[facility] [id number] [address] Lactate [Moles/Vol] 1.6 mmol/L Normal 0.5-2.2 [facility] Comment on above: Order Comment: Speci men Type: VENOUS BLOOD SPECIMENOrdering Facility: [facility] Address: [address] [place] [address] Performed By: #### 2 4344-4 ####KO RESPIRATORYCLIA [id number] [facility] RESPIRAT[facility] [id number] [address] Methemoglobin (Bld) [Mass fraction] % Normal 0.0-1.5 [facility] Comment on above: Order Comment: Speci men Type: VENOUS BLOOD SPECIMENOrdering Facility: [facility] Address: [address] [place] [id number] Performed By: #### 2 4344-4 ####KO RESPIRATORYCLIA [id number] [facility] RESPIRAT[facility] [id number] [address] [address] O2 THERAPY RA=Room Air [facility] Comment on above: Order Comment: Speci men Type: VENOUS BLOOD SPECIMENOrdering Facility: [facility] Address: [address] [place] [address] Performed By: #### 2 4344-4 ####[place] RESPIRATORYIA [id number] [facility]OS[facility] RESPIRATORY [id number] [address] Oxygen (BldV) [Partial pressure] 42 mm[Hg] Normal 35-45 [facility] Comment on above: Order Comment: Speci men Type: VENOUS BLOOD SPECIMENOrdering Facility: [facility] Address: [address] [place] [id number] Performed By: #### 2 4344-4 ####KO RESPIRATORYIA [id number] [facility]OSPITAL RESPIRATORY [id number] [address] [address] Oxygen adjusted to patient's actual temperature (BldV) [Partial pressure] Normal [facility] Comment on above: Order Comment: Speci men Type: VENOUS BLOOD SPECIMENOrdering Facility: [facility] Address: [address] [place] [address] Performed By: #### 2 4344-4 ####KO RESPIRATORYIA [id number] [facility]OS[facility] RESPIRATORY [id number] [address] Oxygen saturation in Venous blood 74 % Normal 60-85 [facility] Comment on above: Order Comment: Speci men Type: VENOUS BLOOD SPECIMENOrdering Facility: [facility] Address: [address] [place] [address] Performed By: #### 2 4344-4 ####KO RESPIRATORYCLIA [id number] [facility]IRAT[facility] [id number] [address] Oxyhemoglobin (BldV) [Mass fraction] 73 % Normal [facility] Comment on above: Order Comment: Speci men Type: VENOUS BLOOD SPECIMENOrdering Facility: [facility] Address: [address] [place] [address] Performed By: #### 2 4344-4 ####KO RESPIRATORYCLIA [id number] [id number] [address] [address] pH (BldV) 7.38 [pH] Normal 7.32-7.42 [facility] Comment on above: Order Comment: Speci men Type: VENOUS BLOOD SPECIMENOrdering Facility: [facility] Address: [address] [place] [address] Performed By: #### 2 4344-4 ####KO RESPIRATORYIA [id number] [facility] [id number] [address] pH adjusted to patient's actual temperature (BldV) Normal [facility] Comment on above: Order Comment: Speci men Type: VENOUS BLOOD SPECIMENOrdering Facility: [facility] Address: [address] [place] [address] Performed By: #### 2 4344-4 ####KO RESPIRATORYCLIA [id number] [id number] [address] Potassium [Moles/Vol] 3.8 mmol/L Normal 3.5-5.0 [facility] Comment on above: Order Comment: Speci men Type: VENOUS BLOOD SPECIMENOrdering Facility: [facility] Address: [address] [place] [address] Performed By: #### 2 4344-4 ####KO RESPIRATORYCLIA [id number] [facility] RESPIRATORY [id number] [address] [place] [address] HIGH SENSITIVITY TROPONIN T (INITIAL)on 11-15-2023 Troponin T.cardiac High sensitivity method [Mass/Vol] 31 ng/L High <12 [facility] Comment on above: Order Comment: Speci men Type: BLOOD SPECIMENOrdering Facility: [facility] Address: [address] [place] [address] Performed By: #### 2 4323-8, 3040-3, 17689-5, 74257-4, [id number] ####[facility] LABORATORYCLIA [id number] [address] HIGH SENSITIVITY TROPONIN T (SECOND)on 11-15-2023 Troponin T.cardiac High sensitivity method [Mass/Vol] 25 ng/L High <[address] [place] [address] Comment on above: Order Comment: Speci men Type: BLOOD SPECIMENOrdering Facility: [facility] Address: [address] [place] [address] Performed By: #### 3 3959-8, [id number] ####[facility] LABORATORYCLIA [id number] [address] HIGH SENSITIVITY TROPONIN T (THIRD) 3 HRS AFTER INITIALon 11-15-2023 Troponin T.cardiac High sensitivity method [Mass/Vol] 23 ng/L High <[address] [place] [address] Comment on above: Order Comment: Speci men Type: BLOOD SPECIMENOrdering Facility: [facility] Address: [address] [place] [address] Performed By: #### 3 016-3, [id number] ####[facility] LABORATORYCLIA [id number] [place] [id number] [place] HISTORY PHYSICALon HISTORY PHYSICAL HNO ID: [id number] Author: ADDI BRICE DO Service: Hospital Medicine Author Type: Physician Type: H&P Filed: 11/16/2023 00:14 Note Text: DEPARTMENT OF HOSPITAL MEDICINE HISTORY AND PHYSICAL EXAM SERVICE DATE: 11/16/2023 SERVICE TIME: 12:14 AM Primary Care Physician: Mandeep Houser DO NIGHT COVERAGE: Please page [facility] [place] [phone] for any issues or concerns Subjective CHIEF COMPLAINT: Syncope (Having abd cramps was sitting in the bathroom when started breaking out in a sweat and blacking out. ) HPI: This is a 78 year old female with PMH of non ischemic cardiomyopathy, HFrEF (2019, 07-12-23: EF 26%), s/p AUTOMATION TECH-D (July 20, 2023, medtronic), non occlusive CAD ([facility]: ), IBS, Factor V Leiden Syndrome, HTN, [...] 15.66 (*) Abs Neut 11.69 (*) Abs [place] 1.05 (*) Abs Immature Gran 0.25 (*) [...] laboratory APTT reagent in use throughout the [facility]. HIGH SENSITIVITY TROPONIN T (SECOND) - [...] URINALYSIS WI (more content not included)... Normal [facility] Lipase SerPl-cCncon 11-15-19 24 Lipase [Catalytic activity/Vol] 42 U/L Normal 16-61 [facility] Comment on above: Order Comment: Lenard jesus Type: BLOOD SPECIMENOrdering Facility: [facility] Address: [address] [place] [address] Performed By: #### 2 4323-8, 3040-3, 87595-1, 58981-7, [id number] ####[facility] LABORATORYCLIA [id number] [address] [place] Magnesium [facility]-ncon 11-14 Magnesium [Mass/Vol] 2.2 mg/dL Normal 1.7-2.3 [facility] Comment on above: Order Comment: eLnard jesus Type: BLOOD SPECIMENOrdering Facility: [facility] Address: [address] [place] [address] Performed By: #### 2 4323-8, 3040-3, 34021-2, 00210-1, [id number] ####[facility] LABORATORYCLIA [id number] [address] [place] [facility] Natriuretic peptide.B prohormone N-Terminal [Mass/Vol] 1221 pg/mL High <450 [facility] Comment on above: Order Comment: Lenard jesus Type: BLOOD SPECIMENOrdering Facility: [facility] Address: [address] [place] [address] Performed By: #### 2 4323-8, 3040-3, 20504-9, 04759-5, [id number] ####[facility] LABORATORYCLIA [id number] [address] [place] PT panel Coag (PPP)on 2023 INR Coag (PPP) [Relative time] 0.9 {INR} Normal 0.9-1.3 [facility] Comment on above: Order Comment: Lenard jesus Type: BLOOD SPECIMENOrdering Facility: [facility] Address: [address] [place] [address] Result Comment: Sarah min K Antagonist (VKA) Therapeutic Range: INR 2 to 3 (Target INR of 2.5) Note: For patients treated with VKA drugs, such as warfarin, the [employer] [employer] 2012 Guideline recommends [...] Chest 2012, 141:7S-47S Becca RA, et al. [facility] 2017, 70: 252-289 Performed By: #### 4 8065-7, 44810-6, 70482-6 ####[facility] LABORATORYCLIA [id number] [place] [address] [place] PT Coag (PPP) [Time] 10.2 s Normal 9.7-13.0 [facility] Comment on above: Order Comment: Lenard [facility] Type: BLOOD SPECIMENOrdering Facility: [facility] Address: [address] [place] [address] Performed By: #### 4 8065-7, 49858-9, 27190-5 ####[facility] LABORATORYCLIA [id number] [place] [id number] [place] Procalcitonin SerPl-mCncon 0 11-15-2023 Procalcitonin [Mass/Vol] 0.07 ng/mL Normal <0.09 [facility] Comment on above: Order Comment: Lenard jesus Type: BLOOD SPECIMENOrdering Facility: [facility] Address: [address] [place] [address] Result Comment: For a guided interpretation of test results, please visit the Change in Procalcitonin Calculator, [email or web address]. Performed By: #### 3 3959-8, [id number] ####KO LABORATORYCLIA [id number] [address] TSH SerPl-aCncon 11-15-2023 TSH Qn 1.470 m[IU]/L Normal 0.270-4.200 [facility] Comment on above: Order Comment: Speci men Type: BLOOD SPECIMENOrdering Facility: [facility] Address: [address] [place] [address] Performed By: #### 3 016-3, [id number] ####KO LABORATORYCLIA [id number] [address] Urinalysis complete panel (U )on 11-15-2023 Bilirubin Ql (U) Negative Normal Negative [facility] Comment on above: Order Comment: Speci men Type: URINE SPECIMENOrdering Facility: [facility] Address: [address] [place] [address] Performed By: #### 2 4356-8 ####KO LABORATORYCLIA [id number] [address] Clarity (Unsp spec) Clear Normal Clear [facility] Comment on above: Order Comment: Speci men Type: URINE SPECIMENOrdering Facility: [facility] Address: [address] [place] [address] Performed By: #### 2 4356-8 ####KO LABORATORYCLIA [id number] [address] Color (U) Yellow Normal Yellow [facility] Comment on above: Order Comment: Speci men Type: URINE SPECIMENOrdering Facility: [facility] Address: [address] [place] [address] Performed By: #### 2 4356-8 ####KO LABORATORYCLIA [id number] [address] Epithelial cells LM.HPF (Urine sed) [#/Area] Few Normal [facility] Comment on above: Order Comment: Speci men Type: URINE SPECIMENOrdering Facility: [facility] Address: [address] [place] [address] Performed By: #### 2 4356-8 ####KO LABORATORYCLIA [id number] [address] Glucose Test strip (U) [Mass/Vol] Negative Normal Negative [facility] Comment on above: Order Comment: Speci men Type: URINE SPECIMENOrdering Facility: [facility] Address: [address] [place] [address] Performed By: #### 2 4356-8 ####KO LABORATORYCLIA [id number] [place] [address] [place] Hemoglobin Ql (U) Negative Normal Negative [facility] Comment on above: Order Comment: Speci men Type: URINE SPECIMENOrdering Facility: [facility] Address: [address] [place] [address] Performed By: #### 2 4356-8 ####KO LABORATORYCLIA [id number] [address] [place] Ketones Ql (U) Negative Normal Negative [facility] Comment on above: Order Comment: Speci men Type: URINE SPECIMENOrdering Facility: [facility] Address: [address] [place] [address] Performed By: #### 2 4356-8 ####KO LABORATORYCLIA [id number] [address] Leukocyte esterase Test strip Ql (U) Negative Normal Negative [facility] Comment on above: Order Comment: Speci men Type: URINE SPECIMENOrdering Facility: [facility] Address: [address] [place] [address] Performed By: #### 2 4356-8 ####KO LABORATORYCLIA [id number] [address] [place] Nitrite Ql (U) Negative Normal Negative [facility] Comment on above: Order Comment: Speci men Type: URINE SPECIMENOrdering Facility: [facility] Address: [address] [place] [address] Performed By: #### 2 4356-8 ####KO LABORATORYCLIA [id number] [address] pH (U) 6.0 [pH] Normal 5.0-8.0 [facility] Comment on above: Order Comment: Speci men Type: URINE SPECIMENOrdering Facility: [facility] Address: [address] [place] [address] Performed By: #### 2 4356-8 ####KO LABORATORYCLIA [id number] [address] [place] Protein (U) [Mass/Vol] Negative Normal Negative [facility] Comment on above: Order Comment: Speci men Type: URINE SPECIMENOrdering Facility: [facility] Address: [address] [place] [address] Performed By: #### 2 4356-8 ####[facility] LABORATORYCLIA [id number] [address] [place] RBC LM.HPF (Urine sed) [#/Area] 0-3 /HPF Normal 0-3 /HPF [facility] Comment on above: Order Comment: Speci men Type: URINE SPECIMENOrdering Facility: [facility] Address: [address] [place] [address] Performed By: #### 2 4356-8 ####[facility] LABORATORYCLIA [id number] [address] Specific gravity (U) [Rel density] 1.020 Normal 1.005-1.030 [facility] Comment on above: Order Comment: Speci men Type: URINE SPECIMENOrdering Facility: [facility] Address: [address] [place] [address] Performed By: #### 2 4356-8 ####KO LABORATORYCLIA [id number] [address] Urobilinogen Ql (U) 0.2 EU/dL Normal 0.2-1.0 EU/dL [facility] Comment on above: Order Comment: Speci men Type: URINE SPECIMENOrdering Facility: [facility] Address: [address] [place] [address] Performed By: #### 2 4356-8 ####KO LABORATORYCLIA [id number] [place] [address] [place] WBC LM.HPF (Urine sed) [#/Area] 0-5 /HPF Normal 0-5 /HPF [facility] Comment on above: Order Comment: Speci men Type: URINE SPECIMENOrdering Facility: [facility] Address: [address] [place] [address] Performed By: #### 2 4356-8 ####[facility] LABORATORYCLIA [id number] [place] [address] [place] XR CHEST 1V [...] osseous abnormality. IMPRESSION: No acute cardiopulmonary disease. Income Tax Administrator: PSCMykel Transcribe Date/Time: Nov 15 2023 8:27P Dictated by : OLIVERIO NOLASCO MD This examination was interpreted and the report reviewed and electronically signed by: OLIVERIO NOLASCO MD on Nov 15 2023 8:31PM EST [id number] Normal [facility] aPTT PPPon 11-15-2023 aPTT Coag (PPP) [Time] 22.7 s Low 23.0-32.4 [facility] Comment on above: Order Comment: Speci men Type: BLOOD SPECIMENOrdering Facility: [facility] Address: [address] [place] [address] Performed By: #### 4 8065-7, 83286-0, 91114-5 ####[facility] LABORATORYCLIA [id number] [place] [address] [place] [address] BRAIN WO IVCONon 11-01-[address] BRAIN WO IVCON * * *Final Report* * * DATE OF EXAM: Nov 01 2023 3:05PM [facility]NOTE 3] 0504 - CT BRAIN WO IVCON / [...] should be made on a neurological basis. Income Tax Administrator: PSCB Transcribe Date/Time: Nov 01 2023 3:06P Dictated by : ERNESTO KLEIN MD This examination was interpreted and the report reviewed and electronically signed by: ERNESTO KLEIN MD on Nov 01 2023 3:11PM EST [id number] Normal [facility] CT Head WO contraston 2023 IMPRESSION: No CT evidence of acute intracranial abnormality/hemorrhage Mild degree supratentorial chronic microvascular ischemic changes. Axial image 10, focal area decreased attenuation right insular cortex most consistent with chronic microvascular ischemic changes. Decision to perform follow-up and/or further imaging should be made on a neurological basis. Income Tax Administrator: KEYANA Transcribe Date/Time: Nov 01 2023 3:06P Dictated by : ERNESTO KLEIN MD This examination was interpreted and the report reviewed and electronically signed by: ERNESTO KLEIN MD on Nov 01 2023 3:11PM EST [facility] * * *Final Report* * * DATE OF EXAM: Nov 01 2023 3:05PM [facility]NOTE 3] 0504 - CT BRAIN WO IVCON / [...] base and imaged soft tissues are unremarkable. [facility]/01/2023 * * *Final Report* * * DATE OF EXAM: Nov 01 2023 3:05PM [facility][NOTE 3] 0504 - CT BRAIN WO IVCON / [...] should be made on a neurological basis. Income Tax Administrator: KEYANA Transcribe Date/Time: Nov 01 2023 3:06P Dictated by : ERNESTO KLEIN MD This examination was interpreted and the report reviewed and electronically signed by: ERNESTO KLEIN MD on Nov 01 2023 3:11PM EST [facility] Radiology Study observation (narrative) [facility] CT Head WO contrastOrdered B y: Ccf Provider on 11-01-[address] [facility] CBC W Auto Differential pane l (Bld)on 10-31-2023 Basophils (Bld) [#/Vol] 0.13 10*3/uL High [facility] Basophils/100 WBC (Bld) 1.2 % [facility] Differential cell count method Nom (Bld) Auto [facility] Eosinophils (Bld) [#/Vol] 0.34 10*3/uL NINF [facility] Eosinophils/100 WBC (Bld) 3.1 % [facility] Erythrocyte distribution width (RBC) [Ratio] 13.5 % 11.5 - 15.0 % [facility] Hematocrit (Bld) [Volume fraction] 41.9 % 36.0 - 46.0 % [facility] Hemoglobin (Bld) [Mass/Vol] 13.0 g/dL 11.5 - 15.5 g/dL [facility] Immature granulocytes (Bld) [#/Vol] 0.07 10*3/uL [facility] Immature granulocytes/100 WBC (Bld) 0.6 % [facility] Interpretation and review of laboratory results Abnormal [facility] Lymphocytes (Bld) [#/Vol] 4.05 10*3/uL High [facility] Lymphocytes/100 WBC (Bld) 37.4 % [facility] MCH (RBC) [Entitic mass] 28.8 pg 26.0 - 34.[address] [facility] MCHC (RBC) [Mass/Vol] 31.0 g/dL 30.5 - 36.0 g/dL [facility] MCV (RBC) [Entitic vol] 92.7 fL 80.0 - 100.[address] [facility] Monocytes (Bld) [#/Vol] 0.99 10*3/uL High [facility] Monocytes/100 WBC (Bld) 9.1 % [facility] Neutrophils (Bld) [#/Vol] 5.24 10*3/uL [facility] Neutrophils/100 WBC (Bld) 48.6 % [facility] Nucleated RBC (Bld) [#/Vol] [facility] Nucleated RBC/100 WBC (Bld) [Ratio] 0.0 % /[address] [facility] Platelet mean volume (Bld) [Entitic vol] 10.4 fL 9.0 - 12.[address] [facility] Platelets (Bld) [#/Vol] 326 10*3/uL [facility] RBC (Bld) [#/Vol] 4.52 10*6/uL 3.90 - 5.2 0 m/uL [facility] WBC (Bld) [#/Vol] 10.82 10*3/uL [facility] CBC W Auto Differential pane l (Bld)on 10-15-2023 Basophils (Bld) [#/Vol] 0.11 10*3/uL High NINF [facility] Basophils/100 WBC (Bld) 1.1 % [facility] Differential cell count method Nom (Bld) Auto [facility] Eosinophils (Bld) [#/Vol] 0.30 10*3/uL [facility] Eosinophils/100 WBC (Bld) 3.0 % [facility] Erythrocyte distribution width (RBC) [Ratio] 13.4 % 11.5 - 15.0 % [facility] Hematocrit (Bld) [Volume fraction] 40.6 % 36.0 - 46.0 % [facility] Hemoglobin (Bld) [Mass/Vol] 12.7 g/dL 11.5 - 15.5 g/dL [facility] Immature granulocytes (Bld) [#/Vol] 0.07 10*3/uL [facility] Immature granulocytes/100 WBC (Bld) 0.7 % [facility] Interpretation and review of laboratory results Abnormal [facility] Lymphocytes (Bld) [#/Vol] 3.14 10*3/uL [facility] Lymphocytes/100 WBC (Bld) 31.7 % [facility] MCH (RBC) [Entitic mass] 29.4 pg 26.0 - 34.[address] [facility] MCHC (RBC) [Mass/Vol] 31.3 g/dL 30.5 - 36.0 g/dL [facility] MCV (RBC) [Entitic vol] 94.0 fL 80.0 - 100.[address] [facility] Monocytes (Bld) [#/Vol] 0.72 10*3/uL [facility] Monocytes/100 WBC (Bld) 7.3 % [facility] Neutrophils (Bld) [#/Vol] 5.55 10*3/uL [facility] Neutrophils/100 WBC (Bld) 56.2 % [facility] Nucleated RBC (Bld) [#/Vol] [facility] Nucleated RBC/100 WBC (Bld) [Ratio] 0.0 % /[address] [facility] Platelet mean volume (Bld) [Entitic vol] 10.4 fL 9.0 - 12.[address] [facility] Platelets (Bld) [#/Vol] 353 10*3/uL [facility] RBC (Bld) [#/Vol] 4.32 10*6/uL 3.90 - 5.2 0 m/uL [facility] WBC (Bld) [#/Vol] 9.89 10*3/uL [facility] ICD REMOTE CHECKon 4 AV Delay Adaptive Paced Minimum (ms) [address] [facility] AV Delay Adaptive Sensed Minimum (ms) [address] [facility] AV Delay Adaptive Status ENABLED [facility] Battery Voltage 3.[address] [facility] Luis LV Pacing Amplitude (volts) 1.[address] [facility] Luis LV Pacing Polarity BI [facility] Luis LV Pacing Pulse Width (ms) 0.[address] [facility] Luis RA Pacing Amplitude (volts) 3.[address] [facility] Luis RA Pacing Polarity BI [facility] Luis RA Pacing Pulse Width (ms) 0.[address] [facility] Luis RA Sensing Amplitude (mvolts) 0.[address] [facility] Luis RA Sensing Blanking Period (ms) [address] [facility] Luis RA Sensing Polarity BI [facility] Luis RA Sensing Refractory Period (ms) Auto [facility] Luis RV Pacing Amplitude (volts) 3.[address] [facility] Luis RV Pacing Polarity BI [facility] Luis RV Pacing Pulse Width (ms) 0.[address] [facility] Luis RV Sensing Amplitude (mvolts) 0.[address] [facility] Luis RV Sensing Blanking Period (ms) [address] [facility] Luis RV Sensing Polarity BI [facility] Detection Configuration (Vent) 1 - Zone [facility] ICD AFIB DetectionStatus ENABLED [facility] ICD ATAF DetectionInterval ms [address] [facility] ICD ATAF DetectionStatus ENABLED [facility] ICD FastVT DetectionStatus DISABLED [facility] ICD-ADLRATE_BPM 95 {beats}/min [facility] ICD-AMS EPISODES 171 {beats}/min [facility] ICD-ATP Episodes (Vent) [address] [facility] ICD-ATRIALFIBRILLATION 0 Cl [facility] ICD-Device Mfg MDT [facility] ICD-LEADIMPEDANCEATRIA L [address] [facility] ICD-Percent Pacing (Atrial) 0.07 % [facility] ICD-Percent Pacing (Vent) 6.67 % [facility] ICD-PMT Intervention Enabled [facility] ICD-PVC Intervention Enabled [facility] ICD-Rate Modulation Acceleration Reaction [address] [facility] ICD-Rate Modulation Deceleration Exercise [facility] ICD-Rate Modulation Denali [address] [facility] ICD-Rate Modulation Threshold Low [facility] ICD-Shocks Aborted (Vent) [address] [facility] [id number] [address] [facility] ICD-SHOCKSABORTED 0 [facility] ICD-SHOCKSDELIVEREDVEN TRICULAR [address] [facility] ICD-Ventricular Fibrillation [address] [facility] ICD-VVDELAY_MS [address] [facility] Lead Impedance (LV) 437 ohm [facility] Lead Impedance (RV) 380 ohm [facility] Lead Impedance High Voltage [address] [facility] Lead1 Mfg MDT [facility] Lead2 Mfg MDT [facility] Lead3 Mfg MDT [facility] Location LV [facility] Location RA [facility] Location RV [facility] Lower Rate (bpm) 45 {beats}/min [facility] LV PACING % 97.85 % [facility] Max Sensor Rate (bpm) 120 {beats}/min [facility] MDT_PROG_TACHY_ZONE_DE TECTIONS_STATUS ENABLED [facility] Model [id number] [place] XT HF Quad AUTOMATION TECH-D MRI [facility] Model 4798 Attain Stabilit y Quad MRI [facility] Model 5076 CapSureFix [employer] [facility] Model 6935M Sprint Quattro Secure S [facility] Pacing Mode DDD [facility] Serial Number [id number] [facility] Serial Number [id number] [facility] Serial Number [id number] [facility] Serial Number [id number] [facility] Test Charge Energy 40.0 J [facility] Test Charge Time 0 s [facility] Therapy Status (Vent) Enabled [facility] Thresh LV Capture Amplitude (volts) 0.[address] [facility] Thresh LV Capture Duration (ms) 0.[address] [facility] Thresh RA Capture Amplitude (volts) 0.[address] [facility] Thresh RA Capture Duration (ms) 0.[address] [facility] Thresh RA Sensing Amplitude (mvolts) 5.[address] [facility] Thresh RV Capture Amplitude (VOLTS) 0.[address] [facility] Thresh RV Capture Duration (MS) 0.[address] [facility] Thresh RV Sensing Amplitude (MVOLTS) 24.[address] [facility] Tracking Rate (bpm) 130 {beats}/min [facility] VF Zone Detection Interval [address] [facility] VF Zone Therapy Configuration 1 ATP(s) + 6 Shock(s) [facility] 09/28/2023 Formattin g of this note [...] pacing <0.1%. total V pacing 97.9%. Adaptive AUTOMATION TECH shows BiV pacing 6.8%, LV only pacing 93.2%. FOLLOW UP: Continue 3 month remote transmissions and yearly in-clinic interrogations. Amy Louis RN NOTE TO PROVIDERS: CARD Flowsheets contain detailed device programming and testing data. Paceart/Interrogation PDF can be found under CARDIAC DATA AND REPORT, Scanned Documents section. [facility] No Panel Informationon 09-27 BLANK _ [facility] ICD-ATRIALTACHYCARDIA 0 [facility] ICD-Fast Ventricular Tachycardia [address] [facility] Implant Date 2023 [facility] 09-25-2023 TIMN Telephone (MEPRAD) ----- SANDRA SCHMITZ ([id number]) 1945 [place] [employer] Date Time Provider Department 09/25/23 THUY AGUIRRE During your visit today, we recorded the following information about you: Thuy Aguirre, MELI.STRATEGIC BUYER 09/25/2023 12:12 PM Signed Called and spoke [...] failure Dr. Wells 10/01 virtually. Thuy Aguirre APRN.STRATEGIC BUYER Allergies As of Date: 09/25/2023 Noted Allergy [...] spine, cervical (more content not included)... Normal [facility] XR Foot - left AP and Latera l and obliqueon 09-13-2023 IMPRESSION: No acute osseous abnormality Income Tax Administrator: KEYANA Transcribe Date/Time: Sep 13 2023 11:53A Dictated by : KIRA MALONE MD This examination was interpreted and the report reviewed and electronically signed by: KIRA MALONE MD on Sep 13 2023 11:55AM [facility] DIVISION OF RADIOLOGY * * *Final [...] erosions. IMPRESSION IMPRESSION: No acute osseous abnormality Income Tax Administrator: PSCB Transcribe Date/Time: Sep 13 2023 11:53A Dictated by : KIRA MALONE MD This examination was interpreted and the report reviewed and electronically signed by: KIRA MALONE MD on Sep 13 2023 11:55AM EST [facility] Radiology Study observation (narrative) [facility] XR Foot - left AP and Latera l and obliqueOrdered By: Ccf Provider on 09-13-[address] [facility] CR - History AND Physicalon 08-29-2023 CR - History & Physical [facility] Cardiac Rehab [address] [place] [address] CR - History Physical MR#: [id number] Acct: [id number] Name: SANDRA SCHMITZ Rep #: [id number] : 1945 78 From: Duran KEYS, RVT [...] Negative Advanced Directives Advanced Directives Power of Feller Machine Operator: Yes Living Will: Yes Advance Directives Information [...] Date Josh Britton MD CC: Signed Normal [facility] UA DIP, URINE (POC)on 2023 BILIRUBIN UA (POCT) Negative Negative [facility] CLARITY UA (POCT) [facility] COLOR UA ([facility]) Yellow [facility] GLUCOSE UA (POCT) Negative Negative mg/dL [facility] Hemoglobin Ql (U) Negative Negative [facility] KETONE UA (POCT) Negative Negative mg/dL [facility] LEUKOCYTES UA (POCT) Negative Negative [facility] NITRITE UA (POCT) Negative Negative [facility] PH UA (POCT) 6.5 4.5 - 8.[address] [facility] Protein Ql (U) Negative Negative mg/dL [facility] SPECIFIC GRAVITY UA (POCT) 1.010 1.005 - 1.[address] [facility] UROBILINOGEN UA (POCT) 0.2 E.U./dL Jeanette l E.U./dL [facility] ICD CLINIC CHECKon 4 AV Delay Adaptive Paced Minimum (ms) [address] [facility] AV Delay Adaptive Sensed Minimum (ms) [address] [facility] AV Delay Adaptive Status ENABLED [facility] Battery Voltage 3.[address] [facility] Luis LV Pacing Amplitude (volts) 2.[address] [facility] Luis LV Pacing Polarity BI [facility] Luis LV Pacing Pulse Width (ms) 0.[address] [facility] Luis RA Pacing Amplitude (volts) 3.[address] [facility] Luis RA Pacing Polarity BI [facility] Luis RA Pacing Pulse Width (ms) 0.[address] [facility] Luis RA Sensing Amplitude (mvolts) 0.[address] [facility] Luis RA Sensing Blanking Period (ms) [address] [facility] Luis RA Sensing Polarity BI [facility] Luis RA Sensing Refractory Period (ms) Auto [facility] Luis RV Pacing Amplitude (volts) 3.[address] [facility] Luis RV Pacing Polarity BI [facility] Luis RV Pacing Pulse Width (ms) 0.[address] [facility] Luis RV Sensing Amplitude (mvolts) 0.[address] [facility] Luis RV Sensing Blanking Period (ms) [address] [facility] Luis RV Sensing Polarity BI [facility] Detection Configuration (Vent) 1 - Zone [facility] ICD AFIB DetectionStatus ENABLED [facility] ICD ATAF DetectionInterval ms [address] [facility] ICD ATAF DetectionStatus ENABLED [facility] ICD FastVT DetectionStatus DISABLED [facility] ICD-ADLRATE_BPM 95 {beats}/min [facility] ICD-AMS EPISODES 171 {beats}/min [facility] ICD-ATP Episodes (Vent) [address] [facility] ICD-ATRIALFIBRILLATION 0 Cl [facility] ICD-Device Mfg MDT [facility] ICD-LEADIMPEDANCEATRIA L [address] [facility] ICD-Percent Pacing (Atrial) 0.09 % [facility] ICD-Percent Pacing (Vent) 4.41 % [facility] ICD-PMT Intervention Enabled [facility] ICD-PVC Intervention Enabled [facility] ICD-Rate Modulation Acceleration Reaction [address] [facility] ICD-Rate Modulation Deceleration Exercise [facility] ICD-Rate Modulation Denali [address] [facility] ICD-Rate Modulation Threshold Low [facility] ICD-Rhythm Normal Sinus Rhythm [facility] ICD-Shocks Aborted (Vent) [address] [facility] ZYW-[id number]-UHILSLEQH 0 [facility] ICD-SHOCKSABORTED 0 [facility] ICD-SHOCKSDELIVEREDVEN TRICULAR [address] [facility] ICD-Ventricular Fibrillation [address] [facility] ICD-VVDELAY_MS [address] [facility] Lead Impedance (LV) 418 ohm [facility] Lead Impedance (RV) 361 ohm [facility] Lead Impedance High Voltage [address] [facility] Lead1 Mfg MDT [facility] Lead2 Mfg MDT [facility] Lead3 Mfg MDT [facility] Location LV [facility] Location RA [facility] Location RV [facility] Lower Rate (bpm) 45 {beats}/min [facility] LV PACING % 98.08 % [facility] Max Sensor Rate (bpm) 120 {beats}/min [facility] MDT_PROG_TACHY_ZONE_DE TECTIONS_STATUS ENABLED [facility] Model [id number] [place] XT HF Quad AUTOMATION TECH-D MRI [facility] Model 4798 Attain Stabilit y Quad MRI SureNvan [facility] Model 5076 CapSureFix Novus [facility] Model 6935M Sprint Quattro Secure S [facility] Pacemaker Dependent? NO [facility] Pacing Mode DDD [facility] Serial Number [id number] [facility] Serial Number [id number] [facility] Serial Number [id number] [facility] Serial Number [id number] [facility] Test Charge Energy 40.0 J [facility] Test Charge Time 0 s [facility] Therapy Status (Vent) Enabled [facility] Thresh LV Capture Amplitude (volts) 0.[address] [facility] Thresh LV Capture Duration (ms) 0.[address] [facility] Thresh RA Capture Amplitude (volts) 0.[address] [facility] Thresh RA Capture Duration (ms) 0.[address] [facility] Thresh RA Sensing Amplitude (mvolts) 4.[address] [facility] Thresh RV Capture Amplitude (VOLTS) 0.[address] [facility] Thresh RV Capture Duration (MS) 0.[address] [facility] Thresh RV Sensing Amplitude (MVOLTS) 20.[address] [facility] Tracking Rate (bpm) 130 {beats}/min [facility] VF Zone Detection Interval 320 ms [facility] VF Zone Therapy Configuration 1 ATP(s) + 6 Shock(s) [facility] No Panel Informationon 08-06 BLANK _ [facility] ICD-Fast Ventricular Tachycardia [address] [facility] Implant Date [address] [facility] CBC W Auto Differential pane l (Bld)on 07-24-2023 Basophils (Bld) [#/Vol] 0.13 10*3/uL High <0.11 k/uL [facility] Basophils/100 WBC (Bld) 1.0 % [facility] Differential cell count method Nom (Bld) Auto [facility] Eosinophils (Bld) [#/Vol] 0.46 10*3/uL High <0.46 k/uL [facility] Eosinophils/100 WBC (Bld) 3.4 % [facility] Erythrocyte distribution width (RBC) [Ratio] 15.0 % 11.5 - 15.0 % [facility] Hematocrit (Bld) [Volume fraction] 40.8 % 36.0 - 46.0 % [facility] Hemoglobin (Bld) [Mass/Vol] 12.9 g/dL 11.5 - 15.5 g/dL [facility] Immature granulocytes (Bld) [#/Vol] 0.17 10*3/uL High <0.10 k/uL [facility] Immature granulocytes/100 WBC (Bld) 1.3 % [facility] Lymphocytes (Bld) [#/Vol] 3.09 10*3/uL 1.00 - 4.00 k/uL [facility] Lymphocytes/100 WBC (Bld) 23.0 % [facility] MCH (RBC) [Entitic mass] 29.9 pg 26.0 - 34.[address] [facility] MCHC (RBC) [Mass/Vol] 31.6 g/dL 30.5 - 36.0 g/dL [facility] MCV (RBC) [Entitic vol] 94.7 fL 80.0 - 100.[address] [facility] Monocytes (Bld) [#/Vol] 1.15 10*3/uL High <0.87 k/uL [facility] Monocytes/100 WBC (Bld) 8.6 % [facility] Neutrophils (Bld) [#/Vol] 8.45 10*3/uL High 1.45 - 7.50 k/uL [facility] Neutrophils/100 WBC (Bld) 62.7 % [facility] Nucleated RBC (Bld) [#/Vol] <0.01 k/uL [facility] Nucleated RBC/100 WBC (Bld) [Ratio] 0.0 /[address] [facility] Platelet mean volume (Bld) [Entitic vol] 10.8 fL 9.0 - 12.[address] [facility] Platelets (Bld) [#/Vol] 230 10*3/uL 150 - 400 k/uL [facility] RBC (Bld) [#/Vol] 4.31 10*6/uL 3.90 - 5.2 0 m/uL [facility] WBC (Bld) [#/Vol] 13.45 10*3/uL High 3.70 - 11.00 k/uL [facility] Comprehensive metabolic 2000 panelon 07-24-2023 Albumin [Mass/Vol] 4.1 g/dL 3.9 - 4.9 g/dL [facility] ALP [Catalytic activity/Vol] 66 U/L 34 - 123 U/L [facility] ALT [Catalytic activity/Vol] 11 U/L 7 - 38 U/L [facility] Anion gap [Moles/Vol] 12 mmol/L 9 - 18 mmol/L [facility] AST [Catalytic activity/Vol] 19 U/L 13 - 35 U/L [facility] Bilirubin [Mass/Vol] 0.4 mg/dL 0.2 - 1 .3 mg/dL [facility] Calcium [Mass/Vol] 9.9 mg/dL 8.5 - 10. 2 mg/dL [facility] Chloride [Moles/Vol] 103 mmol/L 97 - 10 5 mmol/L [facility] CO2 [Moles/Vol] 26 mmol/L 22 - 30 mmol/L [facility] Creatinine [Mass/Vol] 1.08 mg/dL High 0.58 - 0.96 mg/dL [facility] Estimated Glomerular Filtration Rate 53 mL/min/1.73m Low >=60 mL/min/1.[address] [facility] Glucose [Mass/Vol] 89 mg/dL 74 - 99 mg/dL [facility] Potassium [Moles/Vol] 4.5 mmol/L 3.7 - 5.1 mmol/L [facility] Protein [Mass/Vol] 7.5 g/dL 6.3 - 8.0 g/dL [facility] Sodium [Moles/Vol] 141 mmol/L 136 - 144 mmol/L [facility] Urea nitrogen [Mass/Vol] 32 mg/dL High 7 - 21 mg/dL [facility] T3 FREE BLDon 07-24-2023 Free T3 [Mass/Vol] 2.0 pg/mL Low 2.3 - 4.1 pg/mL [facility] T4 FREE/FREE THYROXon 2023 Free T4 [Mass/Vol] 1.5 ng/dL 0.9 - 1.7 ng/dL [facility] TSH BLDon 07-24-2023 TSH Qn 2.430 m[IU]/L 0.270 - 4.200 mIU/L [facility] VITAMIN B12 BLOODon 07-24-19 Cobalamin (Vitamin B12) [Mass/Vol] 520 pg/mL 232 - 1,245 pg/mL [facility] CBC W Auto Differential pane l (Bld)on 07-18-2023 Basophils (Bld) [#/Vol] 0.10 10*3/uL Normal <0.11 [facility] Comment on above: Order Comment: Speci men Type: BLOOD SPECIMENOrdering Facility: [facility] Address: [address] [place] [address] Performed By: #### 5 7021-8 ####[facility] LABORATORYCLIA [id number] [place] [address] [place] Basophils/100 WBC (Bld) 1.1 % Normal [facility] Comment on above: Order Comment: Speci men Type: BLOOD SPECIMENOrdering Facility: [facility] Address: [address] [place] [address] Performed By: #### 5 7021-8 ####[facility] LABORATORYCLIA [id number] [place] [id number] [place] Differential cell count method Nom (Bld) Auto Normal [facility] Comment on above: Order Comment: Speci men Type: BLOOD SPECIMENOrdering Facility: [facility] Address: [address] [place] [address] Performed By: #### 5 7021-8 ####[facility] LABORATORYCLIA [id number] [place] [id number] [place] Eosinophils (Bld) [#/Vol] 0.20 10*3/uL Normal <0.46 [facility] Comment on above: Order Comment: Speci men Type: BLOOD SPECIMENOrdering Facility: [facility] Address: [address] [place] [address] Performed By: #### 5 7021-8 ####[facility] LABORATORYCLIA [id number] [place] [id number] [place] Eosinophils/100 WBC (Bld) 2.1 % Normal [facility] Comment on above: Order Comment: Speci men Type: BLOOD SPECIMENOrdering Facility: [facility] Address: [address] [place] [address] Performed By: #### 5 7021-8 ####[facility] LABORATORYCLIA [id number] [place] [address] [place] Erythrocyte distribution width (RBC) [Ratio] 15.1 % High 11.5-15.0 [facility] Comment on above: Order Comment: Speci men Type: BLOOD SPECIMENOrdering Facility: [facility] Address: [address] [place] [address] Performed By: #### 5 7021-8 ####[facility] LABORATORYCLIA [id number] [place] [address] [place] Hematocrit (Bld) [Volume fraction] 36.1 % Normal 36.0-46.0 [facility] Comment on above: Order Comment: Speci men Type: BLOOD SPECIMENOrdering Facility: [facility] Address: [address] [place] [address] Performed By: #### 5 7021-8 ####[facility]ORATORYCLIA [id number] [place] [id number] [place] Hemoglobin (Bld) [Mass/Vol] 11.7 g/dL Normal 11.5-15.5 [facility] Comment on above: Order Comment: Speci men Type: BLOOD SPECIMENOrdering Facility: [facility] Address: [address] [place] [address] Performed By: #### 5 7021-8 ####[facility] LABORATORYCLIA [id number] [place] [address] [place] Immature granulocytes (Bld) [#/Vol] 0.05 10*3/uL Normal <0.10 [facility] Comment on above: Order Comment: Speci men Type: BLOOD SPECIMENOrdering Facility: [facility] Address: [address] [place] [address] Performed By: #### 5 7021-8 ####[facility] LABORATORYCLIA [id number] [place] [address] [place] Immature granulocytes/100 WBC (Bld) 0.5 % Normal [facility] Comment on above: Order Comment: Speci men Type: BLOOD SPECIMENOrdering Facility: [facility] Address: [address] [place] [address] Performed By: #### 5 7021-8 ####[facility] LABORATORYCLIA [id number] [place] [address] [place] Lymphocytes (Bld) [#/Vol] 3.38 10*3/uL Normal 1.00-4.00 [facility] Comment on above: Order Comment: Speci men Type: BLOOD SPECIMENOrdering Facility: [facility] Address: [address] [place] [address] Performed By: #### 5 7021-8 ####[facility] LABORATORYCLIA [id number] [address] [place] Lymphocytes/100 WBC (Bld) 36.1 % Normal [facility] Comment on above: Order Comment: Speci men Type: BLOOD SPECIMENOrdering Facility: [facility] Address: [address] [place] [address] Performed By: #### 5 7021-8 ####[facility] LABORATORYCLIA [id number] [place] [address] [place] MCH (RBC) [Entitic mass] 30.0 pg Normal 26.0-34.0 [facility] Comment on above: Order Comment: Speci men Type: BLOOD SPECIMENOrdering Facility: [facility] Address: [address] [place] [address] Performed By: #### 5 7021-8 ####[facility] LABORATORYCLIA [id number] [place] [id number] [place] MCHC (RBC) [Mass/Vol] 32.4 g/dL Normal 30.5-36.0 [facility] Comment on above: Order Comment: Speci men Type: BLOOD SPECIMENOrdering Facility: [facility] Address: [address] [place] [address] Performed By: #### 5 7021-8 ####[facility] LABORATORYCLIA [id number] [place] [id number] [place] MCV (RBC) [Entitic vol] 92.6 fL Normal 80.0-100.0 [facility] Comment on above: Order Comment: Speci men Type: BLOOD SPECIMENOrdering Facility: [facility] Address: [address] [place] [address] Performed By: #### 5 7021-8 ####[facility] LABORATORYCLIA [id number] [place] [address] [place] Monocytes (Bld) [#/Vol] 0.81 10*3/uL Normal <0.87 [facility] Comment on above: Order Comment: Speci men Type: BLOOD SPECIMENOrdering Facility: [facility] Address: [address] [place] [address] Performed By: #### 5 7021-8 ####[facility] LABORATORYCLIA [id number] [place] [address] [place] Monocytes/100 WBC (Bld) 8.6 % Normal [facility] Comment on above: Order Comment: Speci men Type: BLOOD SPECIMENOrdering Facility: [facility] Address: [address] [place] [address] Performed By: #### 5 7021-8 ####[facility] LABORATORYCLIA [id number] [place] [id number] [place] Neutrophils (Bld) [#/Vol] 4.83 10*3/uL Normal 1.45-7.50 [facility] Comment on above: Order Comment: Speci men Type: BLOOD SPECIMENOrdering Facility: [facility] Address: [address] [place] [address] Performed By: #### 5 7021-8 ####[facility] LABORATORYCLIA [id number] [place] [id number] [place] Neutrophils/100 WBC (Bld) 51.6 % Normal [facility] Comment on above: Order Comment: Speci men Type: BLOOD SPECIMENOrdering Facility: [facility] Address: [address] [place] [address] Performed By: #### 5 7021-8 ####[facility] LABORATORYCLIA [id number] [place] [address] [place] Nucleated RBC (Bld) [#/Vol] 10*3/uL Normal <0.01 [facility] Comment on above: Order Comment: Speci men Type: BLOOD SPECIMENOrdering Facility: [facility] Address: [address] [place] [address] Performed By: #### 5 7021-8 ####[facility] LABORATORYCLIA [id number] [place] [address] [place] Nucleated RBC/100 WBC (Bld) [Ratio] 0.0 /100 WBC Normal [facility] Comment on above: Order Comment: Speci men Type: BLOOD SPECIMENOrdering Facility: [facility] Address: [address] [place] [address] Performed By: #### 5 7021-8 ####[facility]ORATORYCLIA [id number] [place] [id number] [place] Platelet mean volume (Bld) [Entitic vol] 10.2 fL Normal 9.0-12.7 [facility] Comment on above: Order Comment: Speci men Type: BLOOD SPECIMENOrdering Facility: [facility] Address: [address] [place] [address] Performed By: #### 5 7021-8 ####[facility] LABORATORYCLIA [id number] [place] [id number] [place] Platelets (Bld) [#/Vol] 205 10*3/uL Normal 150-400 [facility] Comment on above: Order Comment: Speci men Type: BLOOD SPECIMENOrdering Facility: [facility] Address: [address] [place], [place] [address] Performed By: #### 5 7021-8 ####[facility] LABORATORYCLIA [id number] [place] [id number] [facility] RBC (Bld) [#/Vol] 3.90 10*6/uL Normal 3.90-5.20 [facility] Comment on above: Order Comment: Speci men Type: BLOOD SPECIMENOrdering Facility: [facility] Address: [address] [place] [address] Performed By: #### 5 7021-8 ####[facility] LABORATORYCLIA [id number] [place] [id number] [facility] WBC (Bld) [#/Vol] 9.37 10*3/uL Normal 3.70-11.00 [facility] Comment on above: Order Comment: Speci men Type: BLOOD SPECIMENOrdering Facility: [facility] Address: [address] [place] [address] Performed By: #### 5 7021-8 ####[facility] LABORATORYCLIA [id number] [place] [id number] [facility] CNDSon 07-18-2023 CNDS HNO ID: [id number] Author: ANGELICA SILVA MD Service: Hospital Medicine [...] (HCC) (POA: Yes) Coronary artery disease involving [place] coronary artery of [place] heart without angina pectoris (POA: Yes) Acute hypoxic respiratory failure (HCC) (POA: Unknown) Atrial fibrillation (HCC) (POA: Unknown) LBBB (left bundle branch block) (POA: Unknown) Presence of cardiac resynchronization therapy defibrillator (AUTOMATION TECH-D) (POA: Unknown) Resolved Problems: * No resolved hospital problems. 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 chronic LBBB 77 year old female, who presented to [facility] due to concerns for chest pressure with associated postural lightheadedness and dyspnea She was subsequently admitted to [facility] She had lexiscan stress test which was [...] IV Lasix And she was transferred to [facility] for consideration of inpatient AUTOMATION TECH implantation given her left bundle branch block Pt was seen by EP and she had MDT AUTOMATION TECH-D insertion on 08/14 In regards to heart [...] week follow up with EP ROSEMARY at [facility] office with device check prior. OPERATIONS/PROCEDURE DURING THIS HOSPITALIZATION: Procedure(s) (LRB): INSERTION PERM IMPLANTABLE DEFIBRILLATOR SYSTEM, W/TRANSVENOUS LEAD(S) (N/A) INSERTION CORONARY SINUS/LT VENTRICULAR LEAD W/INITIAL INSERTION OF PACEMAKER/DEFIB GENERATOR (N/A) CONSULTS DURING HOSPITALIZATION: Treatment Team: Attending Provider: Angelica Silva MD Primary Service: , [facility] Consulting: Pili Wells MD Orders Placed This [...] to ausc (more content not included)... Normal [facility] Comprehensive metabolic 2000 panelon 07-18-2023 Albumin [Mass/Vol] 3.5 g/dL Low 3.9-4.9 [facility] Comment on above: Order Comment: Speci men Type: BLOOD SPECIMEN Ordering Facility: [facility] Address: [address] [place] [address] Performed By: #### 2 4321-2, 13484-0 #### [facility] CLIA [id number] [address] [place] [address] [place] ALP [Catalytic activity/Vol] 52 U/L Normal 34-123 [facility] Comment on above: Order Comment: Speci men Type: BLOOD SPECIMEN Ordering Facility: [facility] Address: [address] [place] [address] Performed By: #### 2 4320-2, #### [facility] CLIA [id number] [address] [place] [address] [place] ALT [Catalytic activity/Vol] 18 U/L Normal 7-38 [facility] Comment on above: Order Comment: Speci men Type: BLOOD SPECIMEN Ordering Facility: [facility] Address: [address] [place] [address] Performed By: #### 2 2, #### [facility] CLIA [id number] [address] [place] [address] [place] Anion gap [Moles/Vol] 8 mmol/L Low 9-18 [facility] Comment on above: Order Comment: Speci men Type: BLOOD SPECIMEN Ordering Facility: [facility] Address: [address] [place] [address] Performed By: #### 2 4320-2, #### [facility] CLIA [id number] [address] [place] [address] [place] AST [Catalytic activity/Vol] 18 U/L Normal 13-35 [facility] Comment on above: Order Comment: Speci men Type: BLOOD SPECIMEN Ordering Facility: [facility] Address: [address] [place] [address] Performed By: #### 2 2, #### [facility] CLIA [id number] [address] [place] [address] [place] Bilirubin [Mass/Vol] 0.4 mg/dL Normal 0.2-1.3 [facility] Comment on above: Order Comment: Speci men Type: BLOOD SPECIMEN Ordering Facility: [facility] Address: [address] [place] [address] Performed By: #### 2 432-2, #### [facility] CLIA [id number] [address] [place] [address] [place] Calcium [Mass/Vol] 8.8 mg/dL Normal 8.5-10.2 [facility] Comment on above: Order Comment: Speci men Type: BLOOD SPECIMEN Ordering Facility: [facility] Address: [address] [place] [address] Performed By: #### 2 4321-2, #### [facility] CLIA [id number] [address] [place] [address] [place] Chloride [Moles/Vol] 105 mmol/L Normal 97-105 [facility] Comment on above: Order Comment: Speci men Type: BLOOD SPECIMEN Ordering Facility: [facility] Address: [address] [place] [address] Performed By: #### 2 4321-2, #### [facility] CLIA [id number] [address] [place] [address] [place] CO2 [Moles/Vol] 27 mmol/L Normal 22-30 [facility] Comment on above: Order Comment: Speci men Type: BLOOD SPECIMEN Ordering Facility: [facility] Address: [address] [place] [address] Performed By: #### 2 4321-2, #### [facility] CLIA [id number] [address] [place] [address] [place] Creatinine [Mass/Vol] 1.10 mg/dL High 0.58-0.96 [facility] Comment on above: Order Comment: Speci men Type: BLOOD SPECIMEN Ordering Facility: [facility] Address: [address] [place] [address] Performed By: #### 2 4321-2, #### [facility] CLIA [id number] [address] [place] [address] [place] Creatinine and Glomerular filtration rate.predicted panel (S/P/Bld) 52 mL/min/1.73m??? Low >=60 [facility] Comment on above: Order Comment: Speci men Type: BLOOD SPECIMEN Ordering Facility: [facility] Address: [address] [place] [address] Result Comment: Aaron mated Glomerular Filtration Rate [...] GFR. Performed By: #### 2 432-, #### [facility] CLIA [id number] [place] [address] [place] Glucose [Mass/Vol] 95 mg/dL Normal 74-99 [facility] Comment on above: Order Comment: Lenard jesus Type: BLOOD SPECIMEN Ordering Facility: [facility] Address: [address] [place] [address] Result Comment: The [place] Diabetes Association (ADA) provides guidance for cutoff [...] Standards of Medical Care in Diabetes 2016, [place] [employer]. Diabetes Care. 2016.39(Suppl 1). Performed By: #### 2 4320-06, #### [facility] CLIA [id number] [place] [address] [place] Potassium [Moles/Vol] 4.0 mmol/L Normal 3.7-5.1 [facility] Comment on above: Order Comment: Lenard jesus Type: BLOOD SPECIMEN Ordering Facility: [facility] Address: [address] [place] [address] Performed By: #### 2 432-, #### [facility] CLIA [id number] [address] [place] [address] [place] Protein [Mass/Vol] 6.2 g/dL Low 6.3-8.0 [facility] Comment on above: Order Comment: Speci men Type: BLOOD SPECIMEN Ordering Facility: [facility] Address: [address] [place] [address] Performed By: #### 2 4321-2, #### [facility] CLIA [id number] [address] [place] [address] [place] Sodium [Moles/Vol] 140 mmol/L Normal 136-144 [facility] Comment on above: Order Comment: Speci men Type: BLOOD SPECIMEN Ordering Facility: [facility] Address: [address] [place] [address] Performed By: #### 2 4321-2, #### [facility] CLIA [id number] [address] [place] [address] [place] Urea nitrogen [Mass/Vol] 36 mg/dL High 7-21 [facility] Comment on above: Order Comment: Speci men Type: BLOOD SPECIMEN Ordering Facility: [facility] Address: [address] [place] [address] Performed By: #### 2 4321-2, #### [facility] CLIA [id number] [address] [place] [address] [place] Magnesium SerPl-mCncon 07-17 Magnesium [Mass/Vol] 2.3 mg/dL Normal 1.7-2.3 [facility] Comment on above: Order Comment: Speci men Type: BLOOD SPECIMEN Ordering Facility: [facility] Address: [address] [place] [address] Performed By: #### 5 8410-2 #### [facility] CLIA [id number] [address] [place] [address] [place] NURSING PROGon 07-18-2023 NURSING PROG HNO ID: [id number] Author: CHON RAMSEY RN Service: Nursing Author [...] daughter is here to take her home. [facility] ALLIED HEALTHon 07-17-2023 ALLIED HEALTH HNO ID: [id number] Author: ANAND AMIN RT(R) Service: ? Author [...] PATIENT PRESENTS WITH AN IMPLANTABLE OR ATTACHED COTTON CLEANER: No RADIOLOGY DEPARTMENT: General X-ray: Exam(s) Completed: Chest X-Ray PERIPHERAL IV DATA: Not applicable SIGNED BY: RT Cindy(R) July 17, 2023 10:02 AM [facility] ANES POSTPROC EVALon 024 ANES POSTPROC EVAL HNO ID: [id number] Author: GRISELDA SALMERON MD Service: Anesthesiology Author [...] July 17, 2023 TIME: 7:14 AM CSN: [id number] Normal [facility] Basic metabolic 2000 panelon 07-17-2023 Anion gap [Moles/Vol] 9 mmol/L Normal 9-18 [facility] Comment on above: Order Comment: Speci edin Type: BLOOD SPECIMEN Ordering Facility: [facility] Address: [address] [place] [address] Performed By: #### 2 4321-2 #### [facility] CLIA [id number] [address] [place] [address] [place] Calcium [Mass/Vol] 9.0 mg/dL Normal 8.5-10.2 [facility] Comment on above: Order Comment: Lenard jesus Type: BLOOD SPECIMEN Ordering Facility: [facility] Address: [address] [place] [address] Performed By: #### 2 4321-2 #### [facility] CLIA [id number] [address] [place] [address] [place] Chloride [Moles/Vol] 103 mmol/L Normal 97-105 [facility] Comment on above: Order Comment: Speci men Type: BLOOD SPECIMEN Ordering Facility: [facility] Address: [address] [place] [address] Performed By: #### 2 4321-2 #### [facility] CLIA [id number] [address] [place] [address] [place] CO2 [Moles/Vol] 26 mmol/L Normal 22-30 [facility] Comment on above: Order Comment: Speci men Type: BLOOD SPECIMEN Ordering Facility: [facility] Address: [address] [place] [address] Performed By: #### 2 4321-2 #### [facility] CLIA [id number] [address] [place] [address] Creatinine [Mass/Vol] 0.98 mg/dL High 0.58-0.96 [facility] Comment on above: Order Comment: Speci men Type: BLOOD SPECIMEN Ordering Facility: [facility] Address: [address] [place] [address] Performed By: #### 2 4321-2 #### [facility] CLIA [id number] [address] [place] [address] Creatinine and Glomerular filtration rate.predicted panel (S/P/Bld) 60 mL/min/1.73m??? Normal >=60 [facility] Comment on above: Order Comment: Speci men Type: BLOOD SPECIMEN Ordering Facility: [facility] Address: [address] [place] [address] Result Comment: Aaron mated Glomerular Filtration Rate [...] GFR. Performed By: #### 2 4321-2 #### [facility] CLIA [id number] [address] [place] [address] [place] Glucose [Mass/Vol] 120 mg/dL High 74-99 [facility] Comment on above: Order Comment: Lenard jesus Type: BLOOD SPECIMEN Ordering Facility: [facility] Address: [address] [place] [address] Result Comment: The [place] Diabetes Association (ADA) provides guidance for cutoff [...] Standards of Medical Care in Diabetes 2016, [place] [employer]. Diabetes Care. 2016.39(Suppl 1). Performed By: #### 2 4321-2 #### [facility] CLIA [id number] [address] [place] [address] [place] Potassium [Moles/Vol] 4.6 mmol/L Normal 3.7-5.1 [facility] Comment on above: Order Comment: Lenard jesus Type: BLOOD SPECIMEN Ordering Facility: [facility] Address: [address] [place] [address] Performed By: #### 2 4321-2 #### [facility] CLIA [id number] [address] [place] [address] [place] Sodium [Moles/Vol] 138 mmol/L Normal 136-144 [facility] Comment on above: Order Comment: Ernestinei men Type: BLOOD SPECIMEN Ordering Facility: [facility] Address: [address] [place] [address] Performed By: #### 2 4321-2 #### [facility] CLIA [id number] [address] [place] [address] [place] Urea nitrogen [Mass/Vol] 33 mg/dL High 7-21 [facility] Comment on above: Order Comment: Ernestinei men Type: BLOOD SPECIMEN Ordering Facility: [facility] Address: [address] [place] [address] Performed By: #### 2 4321-2 #### [facility] CLIA [id number] [address] [place] [address] [place] CBC panel Auto (Bld)on 07-16 Erythrocyte distribution width (RBC) [Ratio] 14.6 % Normal 11.5-15.0 [facility] Comment on above: Order Comment: Speci men Type: BLOOD SPECIMEN Ordering Facility: [facility] Address: [address] [place] [address] Performed By: #### 5 8410-2 #### [facility] CLIA [id number] [address] [place] [address] OF [place] Hematocrit (Bld) [Volume fraction] 38.8 % Normal 36.0-46.0 [facility] Comment on above: Order Comment: Speci men Type: BLOOD SPECIMEN Ordering Facility: [facility] Address: [address] [place] [address] Performed By: #### 5 8410-2 #### [facility] CLIA [id number] [address] [place] [address] [place] Hemoglobin (Bld) [Mass/Vol] 12.8 g/dL Normal 11.5-15.5 [facility] Comment on above: Order Comment: Speci men Type: BLOOD SPECIMEN Ordering Facility: [facility] Address: [address] [place] [address] Performed By: #### 5 8410-2 #### [facility] CLIA [id number] [address] [place] [address] [place] MCH (RBC) [Entitic mass] 29.8 pg Normal 26.0-34.0 [facility] Comment on above: Order Comment: Speci men Type: BLOOD SPECIMEN Ordering Facility: [facility] Address: [address] [place] [address] Performed By: #### 5 8410-2 #### [facility] CLIA [id number] [address] [place] [address] [place] MCHC (RBC) [Mass/Vol] 33.0 g/dL Normal 30.5-36.0 [facility] Comment on above: Order Comment: Speci men Type: BLOOD SPECIMEN Ordering Facility: [facility] Address: [address] [place] [address] Performed By: #### 5 8410-2 #### [facility] CLIA [id number] [address] [place] [address] [place] MCV (RBC) [Entitic vol] 90.4 fL Normal 80.0-100.0 [facility] Comment on above: Order Comment: Speci men Type: BLOOD SPECIMEN Ordering Facility: [facility] Address: [address] [place] [address] Performed By: #### 5 8410-2 #### [facility] CLIA [id number] [address] [place] [address] [place] Nucleated RBC (Bld) [#/Vol] 10*3/uL Normal <0.01 [facility] Comment on above: Order Comment: Speci men Type: BLOOD SPECIMEN Ordering Facility: [facility] Address: [address] [place] [address] Performed By: #### 5 8410-2 #### [facility] CLIA [id number] [address] [place] [address] [place] Platelet mean volume (Bld) [Entitic vol] 9.9 fL Normal 9.0-12.7 [facility] Comment on above: Order Comment: Speci men Type: BLOOD SPECIMEN Ordering Facility: [facility] Address: [address] [place] [address] Performed By: #### 5 8410-2 #### [facility] CLIA [id number] [address] [place] [address] [place] Platelets (Bld) [#/Vol] 266 10*3/uL Normal 150-400 [facility] Comment on above: Order Comment: Speci men Type: BLOOD SPECIMEN Ordering Facility: [facility] Address: [address] [place] [address] Performed By: #### 5 8410-2 #### [facility] CLIA [id number] [address] [place] [address] [place] RBC (Bld) [#/Vol] 4.29 10*6/uL Normal 3.90-5.20 [facility] Comment on above: Order Comment: Speci men Type: BLOOD SPECIMEN Ordering Facility: [facility] Address: [address] [place] [address] Performed By: #### 5 8410-2 #### [facility] CLIA [id number] [address] [place] [address] [place] WBC (Bld) [#/Vol] 11.00 10*3/uL Normal 3.70-11.00 [facility] Comment on above: Order Comment: Speci men Type: BLOOD SPECIMEN Ordering Facility: [facility] Address: [address] [place] [address] Performed By: #### 5 8410-2 #### [facility] CLIA [id number] [facility] CNPNon 07-17-2023 CNPN Telephone (FVPRAD) ----- SANDRA SCHMITZ ([id number]) 1945 F [facility]* Date Time Provider Department 07/17/23 MORENITA HILL FVFILIBERTO During your visit today, we recorded the following information about you: Morenita Hill APRN.STRATEGIC BUYER 07/17/2023 11:05 AM Signed Please call patient to arrange for appointment with EP ROSEMARY or Dr. Wellington with device check immediately prior at [facility] office. If we could coordinate this for same day she is seeing Dr. Wells, that would be great, in the next ~2 weeks. Thank you! Morenita Hill APRN.STRATEGIC BUYER Allergies As of Date: 07/17/2023 Noted Allergy [...] right [M19.071] 08/02/2022 Coronary artery disease involving [place] lopez*08/02/2022 Vitamin D deficiency [E55.9] 08/02/2022 Somatic [...] respiratory failure (more content not included)... Normal [facility] CONSULT PROGon 07-17-2023 CONSULT PROG HNO ID: [id number] Author: MORENITA HILL APRN.STRATEGIC BUYER Service: Electrophysiology Author Type: Nurse Practitioner Type: Consult Progress Note Filed: 07/17/2023 11:02 Note Text: [facility]ARD[facility]IC[facility] PROGRESS NOTE PRIMARY SERVICE: 5, Fv HOSPITAL DAY: # 4 INTERVAL HISTORY POD #1 s/p MDT AUTOMATION TECH-D for primary prevention in the setting of [...] Chronic, non-ischemic HFrEF with LBBB s/p MDT AUTOMATION TECH-D POD #1 s/p MDT AUTOMATION TECH-D, reports feeling fatigued, but overall feeling well. [...] week follow up with EP ROSEMARY at [facility] office with device check prior. Patient may be discharged from EP perspective. Case to be discussed with staff, Dr. Muro. Morenita Hill APRN.STRATEGIC BUYER July 17, 2023 10:55 AM EP Pager: [phone] Normal [facility] CONSULT PROG HNO ID: [id number] Author: PILI WELLS MD Service: Cardiovascular Medicine [...] (H) 4.3 - 5.6 % Final Comment: [place] [employer] guidelines indicate that patients with [...] On low doses of GDMT LBBB: s/p AUTOMATION TECH-D 07/16/23 Non-obstructive CAD: stable, ischemic testing recently with no ischemia or infarction. PLAN/RECOMMENDATIONS: GDMT: continue low dose entresto, start toprol XL 12.5mg today. Start PO lasix 20mg daily. Benedict (more content not included)... Normal [facility] ECG COMPLETEon 07-17-2023 ECG COMPLETE Ventricular Rate : 5 4 BPM Atrial Rate : 53 BPM P-R Interval : 133 ms QRS Duration : 133 ms Q-T Interval : 464 ms QTC Calculation(Bazett) : 440 ms Calculated P [place] : 13 degrees Calculated R [place] : -66 degrees Calculated T [place] : 19 degrees Atrial-sensed ventricular-paced complexes Abnormal ECG Confirmed by ROSALIA WARNER MD ([id number]) on 08/23/2023 1:01:26 PM NAME : SANDRA SCHMITZ PID : [id number] : 1945 Gender : Female Race : ORD : [id number] Procedure Date : Jul 17 2023 08:44:51 Edit Date : Aug 23 2023 13:01:29 Diagnosis: Atrial-sensed ventricular-paced complexes Abnormal ECG Confirmed by ROSALIA WARNER MD ([id number]) on 08/23/2023 1:01:26 PM Test Reason : Post-OP Location : [address] Overread By : ROSALIA WARNER MD Edited By : ROSALIA WARNER MD Referred By : REMINGTON CAI Acquired by : WILFREDO THOMPSON [facility] NURSING PROGon 07-17-2023 NURSING PROG HNO ID: [id number] Author: CHON RAMSEY, RN Service: Nursing Author [...] MD Shira. Hold lasix 20mg Discharge cancelled. [facility] THERAPY NTon 07-17-2023 THERAPY NT HNO ID: [id number] Author: ZORAN HILL, PT, DPT Service: Physical Therapy Author Type: Physical Therapist Type: Therapy (PT/OT/Speech/Resp) Filed: 07/17/2023 09:00 Note Text: Physical Therapy Treatment Summary SERVICE DATE: 07/17/2023 SERVICE TIME: 08 to 0844 ROOM: [place] [address] PT 6 Clicks Score: 22 DISCHARGE RECOMMENDATIONS [...] CURRENT HOSPITAL COURSE Pt initially admitted to [facility] for acute on chronic HFrEF. She was stabilized with IV diuresis however course complicated by hypotension and bradycardia. 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 Normal [facility] Vancomycin [place] SerPl-mCncon 07-17-2023 Vancomycin random [Mass/Vol] 9.8 ug/mL Low 10.0-20.0 [facility] Comment on above: Order Comment: Speci men Type: BLOOD SPECIMEN Ordering Facility: [facility] Address: [address] [place] [id number] Result Comment: Refe rence ranges and high/low indicator flags are provided as general guidelines only. The treating physician must determine appropriate target levels/dosing based on the specific clinical situation. Performed By: #### 4 091-5 #### [facility] CLIA [id number] [place] [address] [place] XR CHEST 2V [...] Unremarkable. IMPRESSION: Cardiomegaly. No acute process seen Income Tax Administrator: KEYANA Transcribe Date/Time: Jul 17 2023 10:35A Dictated by : FABIAN BRODERICK MD This examination was interpreted and the report reviewed and electronically signed by: FABIAN RBODERICK MD on Jul 17 2023 10:35AM EST [id number] [facility] ANES PRE-OPon 2023 ANES PRE-OP HNO ID: [id number] Author: GRISELDA SALMERON MD Service: Anesthesiology Author [...] failure (HCC) (+) Coronary artery disease involving [place] coronary artery of [place] heart without angina pectoris (+) LBBB (left [...] and consent discussed: yes. Patient / Responsible Constitution Party agrees to proceed: yes Patient / [...] July 15 (more content not included)... Normal [facility] Basic metabolic 2000 panelon 2023 Anion gap [Moles/Vol] 17 mmol/L Normal 9-18 [facility] Comment on above: Order Comment: Speci men Type: BLOOD SPECIMEN Ordering Facility: [facility] Address: [address] [place] [address] Performed By: #### 2 4321-2, #### [facility] CLIA [id number] [address] [place] [address] [place] Calcium [Mass/Vol] 9.1 mg/dL Normal 8.5-10.2 [facility] Comment on above: Order Comment: Speci men Type: BLOOD SPECIMEN Ordering Facility: [facility] Address: [address] [place] [address] Performed By: #### 2 4320-2, #### [facility] CLIA [id number] [address] [place] [address] [place] Chloride [Moles/Vol] 105 mmol/L Normal 97-105 [facility] Comment on above: Order Comment: Speci men Type: BLOOD SPECIMEN Ordering Facility: [facility] Address: [address] [place] [address] Performed By: #### 2 2, #### [facility] CLIA [id number] [address] [place] [address] [place] CO2 [Moles/Vol] 21 mmol/L Low 22-30 [facility] Comment on above: Order Comment: Speci men Type: BLOOD SPECIMEN Ordering Facility: [facility] Address: [address] [place] [address] Performed By: #### 2 2, #### [facility] CLIA [id number] [address] [place] [address] [place] Creatinine [Mass/Vol] 1.04 mg/dL High 0.58-0.96 [facility] Comment on above: Order Comment: Speci men Type: BLOOD SPECIMEN Ordering Facility: [facility] Address: [address] [place] [address] Performed By: #### 2 2, #### [facility] CLIA [id number] [address] [place] [address] [place] Creatinine and Glomerular filtration rate.predicted panel (S/P/Bld) 56 mL/min/1.73m??? Low >=60 [facility] Comment on above: Order Comment: Speci men Type: BLOOD SPECIMEN Ordering Facility: [facility] Address: [address] [place] [address] Result Comment: Aaron mated Glomerular Filtration Rate [...] GFR. Performed By: #### 2 4320-, #### [facility] CLIA [id number] [place] [address] [place] Glucose [Mass/Vol] 94 mg/dL Normal 74-99 [facility] Comment on above: Order Comment: Lenard jesus Type: BLOOD SPECIMEN Ordering Facility: [facility] Address: [address] [place] [address] Result Comment: The [place] [employer] Association (ADA) provides guidance for cutoff [...] Standards of Medical Care in Diabetes 2016, [place] [employer]. Diabetes Care. 2016.39(Suppl 1). Performed By: #### 2 4320-06, #### [facility] CLIA [id number] [address] [place] [address] [place] Potassium [Moles/Vol] 4.0 mmol/L Normal 3.7-5.1 [facility] Comment on above: Order Comment: Lenard jesus Type: BLOOD SPECIMEN Ordering Facility: [facility] Address: [address] [place] [address] Performed By: #### 2 4320-, #### [facility] CLIA [id number] [address] [place] [address] [place] Sodium [Moles/Vol] 143 mmol/L Normal 136-144 [facility] Comment on above: Order Comment: Speci men Type: BLOOD SPECIMEN Ordering Facility: [facility] Address: [address] [place] [address] Performed By: #### 2 4321-2, #### [facility] CLIA [id number] [address] [place] [id number] [place] Urea nitrogen [Mass/Vol] 39 mg/dL High 7-21 [facility] Comment on above: Order Comment: Speci men Type: BLOOD SPECIMEN Ordering Facility: [facility] Address: [address] [place] [address] Performed By: #### 2 4321-2, #### [facility] CLIA [id number] [facility] CASE MGT INIT ASSESon 2023 CASE MGT INIT ASSES HNO ID: [id number] Author: ESTELA BRIONES RN Service: ? Author Type: Registered Nurse Type: Care Mgt Initial Assessment Filed: 2023 12:25 Note Text: CARE MANAGEMENT: ASSESSMENT AND DISCHARGE PLAN SERVICE DATE: 2023 SERVICE TIME: 12:24 PM PCP: Mandeep Houser DO Primary Contact: Extended Emergency Contact Information Primary Emergency Contact: Louisa Crouhc Mobile Relation: Sister Secondary Emergency Contact: Julia Schmitz Mobile Relation: Daughter Admission Status: Inpatient Insurance Provider: MEDICARE A AND B Discharge Planning requested by: Per Department Practice Potential Transition Plans No Services Indicated Advance Directives Current Advance Directive: 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 Dtr Julia lives with her. SIGNATURE: Estela Briones RN PATIENT NAME: Sandra Schmitz DATE: 2023 TIME: 12:24 PM CONTACT #: [phone] [facility] CONSULTon 2023 CONSULT HNO ID: [id number] Author: PILI WELLS MD Service: Cardiovascular Medicine [...] no ischemia or infarction. PLAN/RECOMMENDATIONS: Agree with AUTOMATION TECH, planning for today. Can likely transition to PO lasix 40mg daily starting tomorrow. GDMT: continue low dose entresto, post AUTOMATION TECH placement can add toprol XL 12.5mg daily. Re-evaluate tomorrow post AUTOMATION TECH for additional medications if possible. 2L fluid [...] or [place]. [place] [phone]; [place] [phone] Pili Wells MD Advanced Heart Failure and Transplant [facility] [place] [id number] Appointment: [phone] ----- --- SERVICE DATE: 2023 SERVICE TIME: 10:00AM CONSULTING PHYSICIAN: pili wells PCP: Mandeep Houser DO ATTENDING: Angelica Silva MD REASON FOR CONSULT: Heart Failure CHIEF COMPLAINT: Bradycardia [R00.1] HISTORY OF PRESENT ILLNESS: Ms. Schmitz is a 77 year old female who presents for decompensated HF and EP eval for AUTOMATION TECH. Sandra Schmitz has a pmhx of non-ischemic CM, HTN, Hypothyroidism, LBBB, non-obstructive CAD who is transferred to for decompensated HF and EP eval for AUTOMATION TECH. Ns, Nadir reports that she has been [...] went to the hospital. On arrival to [facility] she was volume up, hypotensive. She [...] on chronic systolic CHF (congestive heart failure) ([facility]) 05/03/2020 Aspiration pneumonia ([facility]) 05/30/2020 Chest pain 05/03/2020 Chest pressure 01/23/2013 Chronic diastolic congestive heart failure ([facility]) 02/14/2021 Clostridium difficile diarrhea 09/28/2020 Complete uterovaginal prolapse Cystocele, midline Essential hypertension 06/14/2020 Homozygous Factor V Leiden mutation ([facility]) 05/03/2020 Hypothyroidism IBS (irritable bowel syndrome) 01/23/2013 [...] Disease Father (more content not included)... Normal [facility] Magnesium SerPl-mCncon 07-15 Magnesium [Mass/Vol] 2.2 mg/dL Normal 1.7-2.3 [facility] Comment on above: Order Comment: Speci men Type: BLOOD SPECIMEN Ordering Facility: [facility] Address: [address] [place] [address] Performed By: #### 2 4321-2, 23725-8 #### [facility] CLIA [id number] [place] NURSING PROGon 2023 NURSING PROG HNO ID: [id number] Author: ELEONORA ALVARADO RN Service: Nursing Author [...] note was completed by: Eleonora Alvarado Normal [facility] NURSING PROG HNO ID: [id number] Author: CHON RAMSEY RN Service: Nursing Author Type: Registered Nurse Type: Nursing Progress Note Filed: 2023 08:57 Note Text: Daily note: 0800: per MD Shira hold pt morning dose of IV lasix. Aware subq heparin held for procedure. Normal [facility] CBC panel Auto (Bld)on 07-14 Erythrocyte distribution width (RBC) [Ratio] 14.7 % Normal 11.5-15.0 [facility] Comment on above: Order Comment: Speci men Type: BLOOD SPECIMENOrdering Facility: [facility] Address: [facility] [place] [address] Performed By: #### 5 8410-2 ####[facility]IA [id number] [address] [place] Hematocrit (Bld) [Volume fraction] 38.7 % Normal 36.0-46.0 [facility] Comment on above: Order Comment: Speci men Type: BLOOD SPECIMENOrdering Facility: [facility] Address: [address] [place] [address] Performed By: #### 5 8410-2 ####[facility] [id number] [address] [place] Hemoglobin (Bld) [Mass/Vol] 12.7 g/dL Normal 11.5-15.5 [facility] Comment on above: Order Comment: Speci men Type: BLOOD SPECIMENOrdering Facility: [facility] Address: [address] [place] [address] Performed By: #### 5 8410-2 ####[facility] [id number] [address] [place] MCH (RBC) [Entitic mass] 29.7 pg Normal 26.0-34.0 [facility] Comment on above: Order Comment: Speci men Type: BLOOD SPECIMENOrdering Facility: [facility] Address: [address] [place] [address] Performed By: #### 5 8410-2 ####[facility]ORYCLIA [id number] [address] STATES [facility] MCHC (RBC) [Mass/Vol] 32.8 g/dL Normal 30.5-36.0 [facility] Comment on above: Order Comment: Speci men Type: BLOOD SPECIMENOrdering Facility: [facility] Address: [address] [place] [address] Performed By: #### 5 8410-2 ####[facility] [id number] [address] [place] MCV (RBC) [Entitic vol] 90.6 fL Normal 80.0-100.0 [facility] Comment on above: Order Comment: Speci men Type: BLOOD SPECIMENOrdering Facility: [facility] Address: [address] [place] [address] Performed By: #### 5 8410-2 ####[facility] [id number] [place] [address] [place] Nucleated RBC (Bld) [#/Vol] 10*3/uL Normal <0.01 [facility] Comment on above: Order Comment: Speci men Type: BLOOD SPECIMENOrdering Facility: [facility] Address: [address] [place] [address] Performed By: #### 5 8410-2 ####[facility]ORYCLIA [id number] [place] [id number] [place] Platelet mean volume (Bld) [Entitic vol] 10.2 fL Normal 9.0-12.7 [facility] Comment on above: Order Comment: Speci men Type: BLOOD SPECIMENOrdering Facility: [facility] Address: [address] [place] [address] Performed By: #### 5 8410-2 ####[facility]ORYCLIA [id number] [place] [address] [place] Platelets (Bld) [#/Vol] 280 10*3/uL Normal 150-400 [facility] Comment on above: Order Comment: Speci men Type: BLOOD SPECIMENOrdering Facility: [facility] Address: [address] [place] [address] Performed By: #### 5 8410-2 ####[facility]ORYCLIA [id number] [place] [address] [place] RBC (Bld) [#/Vol] 4.27 10*6/uL Normal 3.90-5.20 [facility] Comment on above: Order Comment: Speci men Type: BLOOD SPECIMENOrdering Facility: [facility] Address: [address] [place] [address] Performed By: #### 5 8410-2 ####[facility]ORYCLIA [id number] [place] [id number] [place] WBC (Bld) [#/Vol] 7.64 10*3/uL Normal 3.70-11.00 [facility] Comment on above: Order Comment: Speci men Type: BLOOD SPECIMENOrdering Facility: [facility] Address: [address] [place] [address] Performed By: #### 5 8410-2 ####[facility] [id number] [place] [address] [place] Comprehensive metabolic 2000 panelon 07-15-2023 Albumin [Mass/Vol] 3.7 g/dL Low 3.9-4.9 [facility] Comment on above: Order Comment: Speci men Type: BLOOD SPECIMEN Ordering Facility: [facility] Address: [address] [place] [address] Performed By: #### 1 9123-9, 18509-6 #### [facility] CLIA [id number] [address] [place] [address] [place] ALP [Catalytic activity/Vol] 51 U/L Normal 34-123 [facility] Comment on above: Order Comment: Speci men Type: BLOOD SPECIMEN Ordering Facility: [facility] Address: [address] [place] [address] Performed By: #### 1 9123-9, 80888-6 #### [facility] CLIA [id number] [address] [place] [address] [place] ALT [Catalytic activity/Vol] Normal [facility] Comment on above: Order Comment: Speci men Type: BLOOD SPECIMEN Ordering Facility: [facility] Address: [address] [place] [address] Result Comment: Unab le to assay due to interference from hemolysis. Suggest reorder as clinically indicated. Performed By: #### 1 9123-9, 14160-3 #### [facility] CLIA [id number] [address] [place] [address] [place] Anion gap [Moles/Vol] 13 mmol/L Normal 9-18 [facility] Comment on above: Order Comment: Speci men Type: BLOOD SPECIMEN Ordering Facility: [facility] Address: [address] [place] [address] Performed By: #### 1 9123-9, 36160-8 #### [facility] CLIA [id number] [address] [place] [address] [place] AST [Catalytic activity/Vol] Normal [facility] Comment on above: Order Comment: Speci men Type: BLOOD SPECIMEN Ordering Facility: [facility] Address: [address] [place] [address] Result Comment: Unab le to assay due to interference from hemolysis. Suggest reorder as clinically indicated. Performed By: #### 1 23-9, #### [facility] CLIA [id number] [address] [place] [address] [place] Bilirubin [Mass/Vol] 0.7 mg/dL Normal 0.2-1.3 [facility] Comment on above: Order Comment: Speci men Type: BLOOD SPECIMEN Ordering Facility: [facility] Address: [address] [place] [address] Performed By: #### 1 9123-01, #### [facility] CLIA [id number] [address] [place] [address] [place] Calcium [Mass/Vol] 9.1 mg/dL Normal 8.5-10.2 [facility] Comment on above: Order Comment: Speci men Type: BLOOD SPECIMEN Ordering Facility: [facility] Address: [address] [place] [address] Performed By: #### 1 239, #### [facility] CLIA [id number] [address] [place] [address] [place] Chloride [Moles/Vol] 103 mmol/L Normal 97-105 [facility] Comment on above: Order Comment: Speci men Type: BLOOD SPECIMEN Ordering Facility: [facility] Address: [address] [place] [address] Performed By: #### 1 9123-01, #### [facility] CLIA [id number] [address] [place] [address] [place] CO2 [Moles/Vol] 25 mmol/L Normal 22-30 [facility] Comment on above: Order Comment: Speci men Type: BLOOD SPECIMEN Ordering Facility: [facility] Address: [address] [place] [address] Performed By: #### 1 239, 66991-1 #### [facility] CLIA [id number] [address] [place] [address] [place] Creatinine [Mass/Vol] 0.99 mg/dL High 0.58-0.96 [facility] Comment on above: Order Comment: Lenard jesus Type: BLOOD SPECIMEN Ordering Facility: [facility] Address: [address] [place] [address] Performed By: #### 1 9123-9, 17984-8 #### [facility] CLIA [id number] [address] [place] [address] [place] Creatinine and Glomerular filtration rate.predicted panel (S/P/Bld) 59 mL/min/1.73m??? Low >=60 [facility] Comment on above: Order Comment: Lenard jesus Type: BLOOD SPECIMEN Ordering Facility: [facility] Address: [address] [place] [address] Result Comment: Aaron mated Glomerular Filtration Rate [...] actual GFR. Performed By: #### 1 9123-9, 52821-9 #### [facility] CLIA [id number] [address] [place] [address] [place] Glucose [Mass/Vol] 95 mg/dL Normal 74-99 [facility] Comment on above: Order Comment: Lenard jesus Type: BLOOD SPECIMEN Ordering Facility: [facility] Address: [address] [place] [address] Result Comment: The [place] [employer] (ADA) provides guidance for cutoff [...] Standards of Medical Care in Diabetes 2016, [place] [employer]. Diabetes Care. 2016.39(Suppl 1). Performed By: #### 1 9122-9, 84621-8 #### [facility] CLIA [id number] [address] [place] [address] [place] Potassium [Moles/Vol] 3.8 mmol/L Normal 3.7-5.1 [facility] Comment on above: Order Comment: Speci men Type: BLOOD SPECIMEN Ordering Facility: [facility] Address: [address] [place] [address] Performed By: #### 1 9123-01, 88164-5 #### [facility] CLIA [id number] [address] [place] [address] [place] Protein [Mass/Vol] 6.6 g/dL Normal 6.3-8.0 [facility] Comment on above: Order Comment: Speci men Type: BLOOD SPECIMEN Ordering Facility: [facility] Address: [address] [place] [address] Performed By: #### 1 9123-01, 82625-0 #### [facility] CLIA [id number] [address] [place] [address] [place] Sodium [Moles/Vol] 141 mmol/L Normal 136-144 [facility] Comment on above: Order Comment: Speci men Type: BLOOD SPECIMEN Ordering Facility: [facility] Address: [address] [place] [address] Performed By: #### 1 9123-01, 04151-3 #### [facility] CLIA [id number] [address] [place] [address] [place] Urea nitrogen [Mass/Vol] 38 mg/dL High 7-21 [facility] Comment on above: Order Comment: Speci men Type: BLOOD SPECIMEN Ordering Facility: [facility] Address: [address] [place] [address] Performed By: #### 1 9123-01, 46182-2 #### [facility] CLIA [id number] [address] [place] [address] [place] Magnesium SerPl-mCncon 07-14 Magnesium [Mass/Vol] 2.2 mg/dL Normal 1.7-2.3 [facility] Comment on above: Order Comment: Speci men Type: BLOOD SPECIMEN Ordering Facility: [facility] Address: [address] [place] [address] Performed By: #### 1 9123-9, 54352-6 #### [facility] CLIA [id number] [place] NURSING PROGon 07-15-2023 NURSING PROG HNO ID: [id number] Author: DARIUS GUERRA RN Service: PICC Team [...] 15, 2023 TIME: 11:25 AM PAGER/CONTACT #: [phone] [facility] NURSING PROG HNO ID: [id number] Author: FLORENTINO REBOLLEDO RN Service: ? Author [...] I/O. call mckeon in reach. 1500 Cardiology STRATEGIC BUYER in to see pt regarding plan of care. ICD to be placed tomorrow. NPO after midnight tonight except medications. questions and concerns addressed. call mckeon in reach. 1600 Monitor remains SR 90's. VSS. afebrile. denies dizziness or cp. independent in room with steady gait. I/O. Assessment unchanged from above. call mckeon in reach. Normal [facility] THERAPY NTon 07-15-2023 THERAPY NT HNO ID: [id number] Author: DANIELLE JACOBS OT/L Service: Occupational Therapy Author Type: Occupational Therapist Type: Therapy (PT/OT/Speech/Resp) Filed: 07/15/2023 12:15 Note Text: Occupational Therapy Evaluation Summary SERVICE DATE: 07/15/2023 SERVICE TIME: 1006 to 1029 ROOM: [place] [address] OT 6 Clicks Score: 24 DISCHARGE RECOMMENDATIONS [...] CURRENT HOSPITAL COURSE Pt initially admitted to [facility] for acute on chronic HFrEF. She was stabilized with IV diuresis however course complicated by hypotension and bradycardia. 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 pt's d/c for first week) [...] No Skilled Need TREATMENT INTERVENTIONS Evaluation, Self Fpc Management (17536) Timed Code Treatment (minutes): 8 Skilled Treatment Time (minutes): 23 TRAINING AND EDUCATION PROVIDED Assistive Device Use, Benefits of In-Hospital Mobility, Discharge Planning, Disease Specific Education, Energy Conservation, Expected Functional Level, Functional Mobility Involving ADLs, Grooming Tasks, Lower Extremity Dressing, Role of Occupational Therapy, Standing Balance to Improve [place] with ADLs/Self-Care, Toileting , Transfer - Sit [...] DATE: July 15, 2023 TIME: 12:15 PM [facility] THERAPY NT HNO ID: [id number] Author: ZORAN HILL, PT, DPT Service: Physical Therapy Author Type: Physical Therapist Type: Therapy (PT/OT/Speech/Resp) Filed: 07/15/2023 09:14 Note Text: Physical Therapy Evaluation Summary SERVICE DATE: 07/15/2023 SERVICE TIME: 830 to 853 ROOM: [place] [address] PT 6 Clicks Score: 23 DISCHARGE RECOMMENDATIONS [...] CURRENT HOSPITAL COURSE ON RNF, RA, upcoming AUTOMATION TECH device implant this admission Relevant Past Medical History: HFrEF, LBBB, hypothyroidism, multiple abdominal surgerise including cholecystectomy. HOME LIVING Patient Lives With: Family Assistance Available: Part-Time (Daughter works days, may be able to clerical warehouse worker for pt first week after d/c [...] Weakness (generalized) TREATMENT INTERVENTIONS Evaluation, Gait Training (80587) Timed Code Treatment (minutes): 8 Skilled Treatment [...] July 15, 2023 TIME: 9:11 AM Normal [facility] Basic metabolic 2000 panelon 07-14-2023 Anion gap [Moles/Vol] 11 mmol/L Normal 9-18 [facility] Comment on above: Order Comment: Speci men Type: BLOOD SPECIMENOrdering Facility: [facility] Address: [address] [place] [address] Performed By: #### 2 4321-2, 40497-9 ####[facility]ORYCLIA [id number] [place] [address] [place] Calcium [Mass/Vol] 9.2 mg/dL Normal 8.5-10.2 [facility] Comment on above: Order Comment: Speci men Type: BLOOD SPECIMENOrdering Facility: [facility] Address: [address] [place] [address] Performed By: #### 2 4321-2, ####[facility]ORATORYCLIA [id number] [place] [id number] [place] Chloride [Moles/Vol] 104 mmol/L Normal 97-105 [facility] Comment on above: Order Comment: Speci men Type: BLOOD SPECIMENOrdering Facility: [facility] Address: [address] [place] [address] Performed By: #### 2 4321-2, ####[facility]ORATORYCLIA [id number] [place] [address] [place] CO2 [Moles/Vol] 27 mmol/L Normal 22-30 [facility] Comment on above: Order Comment: Speci men Type: BLOOD SPECIMENOrdering Facility: [facility] Address: [address] [place] [address] Performed By: #### 2 4321-2, ####[facility]ORYCLIA [id number] [place] [address] [place] Creatinine [Mass/Vol] 0.84 mg/dL Normal 0.58-0.96 [facility] Comment on above: Order Comment: Speci men Type: BLOOD SPECIMENOrdering Facility: [facility] Address: [address] [place] [address] Performed By: #### 2 4321-2, ####[facility]ORATORYCLIA [id number] [place] [id number] [place] Creatinine and Glomerular filtration rate.predicted panel (S/P/Bld) 72 mL/min/1.73m??? Normal >=60 [facility] Comment on above: Order Comment: Speci men Type: BLOOD SPECIMENOrdering Facility: [facility] Address: [address] [place] [address] Result Comment: Aaron mated Glomerular Filtration Rate [...] Performed By: #### 2 432-, ####[facility]ORYCLIA [id number] [place] [id number] [place] Glucose [Mass/Vol] 138 mg/dL High 74-99 [facility] Comment on above: Order Comment: Lenard jesus Type: BLOOD SPECIMENOrdering Facility: [facility] Address: [address] [place] [address] Result Comment: The [place] [employer] (ADA) provides guidance for cutoff [...] Standards of Medical Care in Diabetes 2016, [place] [employer]. Diabetes Care. 2016.39(Suppl 1). Performed By: #### 2 4320-06, ####[facility]ORYCLIA [id number] [place] [id number] [place] Potassium [Moles/Vol] 4.2 mmol/L Normal 3.7-5.1 [facility] Comment on above: Order Comment: Lenard jesus Type: BLOOD SPECIMENOrdering Facility: [facility] Address: [address] [place] [id number] Performed By: #### 2 432-, ####[facility]ORYCLIA [id number] [place] [address] [place] Sodium [Moles/Vol] 142 mmol/L Normal 136-144 [facility] Comment on above: Order Comment: Speci men Type: BLOOD SPECIMENOrdering Facility: [facility] Address: [address] [place] [address] Performed By: #### 2 4321-2, ####[facility] [id number] [place] [address] [place] Urea nitrogen [Mass/Vol] 30 mg/dL High 7-21 [facility] Comment on above: Order Comment: Speci men Type: BLOOD SPECIMENOrdering Facility: [facility] Address: [address] [place], [place] [address] Performed By: #### 2 4321-2, ####[facility]ORY[facility]IA [id number] [place] [id number] [place] Magnesium SerPl-mCncon 07-13 Magnesium [Mass/Vol] 2.1 mg/dL Normal 1.7-2.3 [facility] Comment on above: Order Comment: Speci men Type: BLOOD SPECIMENOrdering Facility: [facility] Address: [address] [place], [place] [address] Performed By: #### 2 4321-2, ####[facility] LABORATORYCLIA [id number] [place] [id number] [place] NURSING PROGon 07-14-2023 NURSING PROG HNO ID: [id number] Author: FLORENTINO REBOLLEDO RN Service: ? Author [...] urine. I/O. call mckeon in reach. Normal [facility] NURSING PROG HNO ID: [id number] Author: MEENA ALFORD RN Service: Nursing Author Type: Registered Nurse Type: Nursing Progress Note Filed: 07/14/2023 11:10 Note Text: Transfer Note: PATIENT NAME: Sandra Schmitz [phone]: Dr. Penaloza, Dr. Silva, and Jose Hill, WILLIAM all visited pt this am and updates given; orders rec'd. Pt's family at bedside. 1055: Patient transferred out to room/unit 3P318/CPPU to [place] [address] in stable condition via wheelchair. Actions taken: Report given/called to CARO Swartz. Pt's family with pt. And took pt belongings. Normal [facility] Basic metabolic 2000 panelon 07-13-2023 Anion gap [Moles/Vol] 9 mmol/L Normal 9-18 [facility] Comment on above: Order Comment: Speci men Type: BLOOD SPECIMENOrdering Facility: [facility] Address: [address] [place] [address] Performed By: #### 2 777-1, 92048-6, 52913-4, 55775-5 ####[facility] LABORATORYCLIA [id number] [place] [address] [place] Calcium [Mass/Vol] 9.3 mg/dL Normal 8.5-10.2 [facility] Comment on above: Order Comment: Speci men Type: BLOOD SPECIMENOrdering Facility: [facility] Address: [address] [place] [address] Performed By: #### 2 777-1, 33141-9, 43548-3, ####[facility] LABORATORYCLIA [id number] [place] [address] [place] Chloride [Moles/Vol] 102 mmol/L Normal 97-105 [facility] Comment on above: Order Comment: Speci men Type: BLOOD SPECIMENOrdering Facility: [facility] Address: [address] [place] [address] Performed By: #### 2 777-1, 84962-3, 88179-3, ####[facility] LABORATORYCLIA [id number] [place] [address] [place] CO2 [Moles/Vol] 30 mmol/L Normal 22-30 [facility] Comment on above: Order Comment: Speci men Type: BLOOD SPECIMENOrdering Facility: [facility] Address: [address] [place] [address] Performed By: #### 2 777-1, 01863-0, 92004-4, ####[facility] LABORATORYCLIA [id number] [place] [address] [place] Creatinine [Mass/Vol] 1.05 mg/dL High 0.58-0.96 [facility] Comment on above: Order Comment: Speci men Type: BLOOD SPECIMENOrdering Facility: [facility] Address: [address] [place] [address] Performed By: #### 2 777-1, 09351-8, 99036-4, ####[facility] LABORATORYCLIA [id number] [place] [address] [place] Creatinine and Glomerular filtration rate.predicted panel (S/P/Bld) 55 mL/min/1.73m??? Low >=60 [facility] Comment on above: Order Comment: Speci men Type: BLOOD SPECIMENOrdering Facility: [facility] Address: [address] [place] [address] Result Comment: Aaron mated Glomerular Filtration Rate [...] actual GFR. Performed By: #### 2 777-1, 77525-2, 43745-6, ####[facility] LABORATORYCLIA [id number] [place] [address] [place] Glucose [Mass/Vol] 94 mg/dL Normal 74-99 [facility] Comment on above: Order Comment: Lenard jesus Type: BLOOD SPECIMENOrdering Facility: [facility] Address: [address] [place] [address] Result Comment: The [place] Diabetes Association (ADA) provides guidance for cutoff [...] Standards of Medical Care in Diabetes 2016, [place] [employer]. Diabetes Care. 2016.39(Suppl 1). Performed By: #### 2 777-1, 32258-2, 89650-4, 34752-2 ####[facility] LABORATORYCLIA [id number] [place] [address] [place] Potassium [Moles/Vol] 4.7 mmol/L Normal 3.7-5.1 [facility] Comment on above: Order Comment: Lenard jesus Type: BLOOD SPECIMENOrdering Facility: [facility] Address: [address] [place] [address] Performed By: #### 2 777-1, 39790-6, 73268-6, 21424-7 ####[facility] LABORATORYCLIA [id number] [place] [address] [place] Sodium [Moles/Vol] 141 mmol/L Normal 136-144 [facility] Comment on above: Order Comment: Speci men Type: BLOOD SPECIMENOrdering Facility: [facility] Address: [address] [place] [address] Performed By: #### 2 777-1, 79822-7, 84636-7, 86477-1 ####[facility] LABORATORYCLIA [id number] [place] [address] [place] Urea nitrogen [Mass/Vol] 37 mg/dL High 7- [facility] Comment on above: Order Comment: Speci men Type: BLOOD SPECIMENOrdering Facility: [facility] Address: [address] [place] [address] Performed By: #### 2 777-1, 59290-8, 48114-6, 02386-6 ####[facility] LABORATORYCLIA [id number] [place] [address] [facility] CASE MANAGEMon 07-13-2023 CASE MANAGEM HNO ID: [id number] Author: ALIREZA ROBERTS LSW Service: ASSESSMENT Author Type: Medical Records Tech Type: Care Mgt Progress Note Filed: 07/13/2023 11:11 Note Text: CARE MANAGEMENT PROGRESS NOTE SERVICE DATE: 07/13/2023 SERVICE TIME: 10:59 AM LOS: 3 days Needs Prior to Discharge: To Be Determined;Bed Availability SW reviewed EMR. Per EMR pt. Is waiting for a bed at [place]. CM will remain available should any further discharge planning needs arise. SIGNATURE: CLARA Luna PATIENT NAME: Sandra Schmitz DATE: July 13, 2023 TIME: 10:58 AM PAGER/CONTACT #: [facility] CBC W Auto Differential pane l (Bld)on 07-13-2023 Basophils (Bld) [#/Vol] 0.07 10*3/uL Normal <0.11 [facility] Comment on above: Order Comment: Speci men Type: BLOOD SPECIMENOrdering Facility: [facility] Address: [address] [place] [address] Performed By: #### 5 7021-8 ####[facility] LABORATORYCLIA [id number] [place] [address] [place] Basophils/100 WBC (Bld) 0.9 % Normal [facility] Comment on above: Order Comment: Speci men Type: BLOOD SPECIMENOrdering Facility: [facility] Address: [address] [place] [address] Performed By: #### 5 7021-8 ####KO LABORATORYCLIA [id number] [place] [address] [place] Differential cell count method Nom (Bld) Auto Normal [facility] Comment on above: Order Comment: Speci men Type: BLOOD SPECIMENOrdering Facility: [facility] Address: [address] [place] [address] Performed By: #### 5 7021-8 ####KO LABORATORYCLIA [id number] [place] [address] [place] Eosinophils (Bld) [#/Vol] 0.23 10*3/uL Normal <0.46 [facility] Comment on above: Order Comment: Speci men Type: BLOOD SPECIMENOrdering Facility: [facility] Address: [address] [place] [address] Performed By: #### 5 7021-8 ####KO LABORATORYCLIA [id number] [place] [address] [place] Eosinophils/100 WBC (Bld) 3.0 % Normal [facility] Comment on above: Order Comment: Speci men Type: BLOOD SPECIMENOrdering Facility: [facility] Address: [address] [place] [address] Performed By: #### 5 7021-8 ####KO LABORATORYCLIA [id number] [place] [address] [place] Erythrocyte distribution width (RBC) [Ratio] 14.7 % Normal 11.5-15.0 [facility] Comment on above: Order Comment: Speci men Type: BLOOD SPECIMENOrdering Facility: [facility] Address: [address] [place] [address] Performed By: #### 5 7021-8 ####KO LABORATORYCLIA [id number] [place] [address] [place] Hematocrit (Bld) [Volume fraction] 37.5 % Normal 36.0-46.0 [facility] Comment on above: Order Comment: Speci men Type: BLOOD SPECIMENOrdering Facility: [facility] Address: [address] [place] [address] Performed By: #### 5 7021-8 ####KO LABORATORYCLIA [id number] [place] [address] [place] Hemoglobin (Bld) [Mass/Vol] 12.0 g/dL Normal 11.5-15.5 [facility] Comment on above: Order Comment: Speci men Type: BLOOD SPECIMENOrdering Facility: [facility] Address: [address] [place] [address] Performed By: #### 5 7021-8 ####KO LABORATORYCLIA [id number] [place] [address] [place] Immature granulocytes (Bld) [#/Vol] 0.04 10*3/uL Normal <0.10 [facility] Comment on above: Order Comment: Speci men Type: BLOOD SPECIMENOrdering Facility: [facility] Address: [address] [place] [address] Performed By: #### 5 7021-8 ####KO LABORATORYCLIA [id number] [place] [address] [place] Immature granulocytes/100 WBC (Bld) 0.5 % Normal [facility] Comment on above: Order Comment: Speci men Type: BLOOD SPECIMENOrdering Facility: [facility] Address: [address] [place] [address] Performed By: #### 5 7021-8 ####KO LABORATORYCLIA [id number] [place] [address] [place] Lymphocytes (Bld) [#/Vol] 2.98 10*3/uL Normal 1.00-4.00 [facility] Comment on above: Order Comment: Speci men Type: BLOOD SPECIMENOrdering Facility: [facility] Address: [address] [place] [address] Performed By: #### 5 7021-8 ####KO LABORATORYCLIA [id number] [address] Lymphocytes/100 WBC (Bld) 39.4 % Normal [facility] Comment on above: Order Comment: Speci men Type: BLOOD SPECIMENOrdering Facility: [facility] Address: [address] [place] [address] Performed By: #### 5 7021-8 ####KO LABORATORYCLIA [id number] [address] MCH (RBC) [Entitic mass] 29.4 pg Normal 26.0-34.0 [facility] Comment on above: Order Comment: Speci men Type: BLOOD SPECIMENOrdering Facility: [facility] Address: [address] [place] [address] Performed By: #### 5 7021-8 ####KO LABORATORYCLIA [id number] [address] MCHC (RBC) [Mass/Vol] 32.0 g/dL Normal 30.5-36.0 [facility] Comment on above: Order Comment: Speci men Type: BLOOD SPECIMENOrdering Facility: [facility] Address: [address] [place] [address] Performed By: #### 5 7021-8 ####KO LABORATORYCLIA [id number] [address] MCV (RBC) [Entitic vol] 91.9 fL Normal 80.0-100.0 [facility] Comment on above: Order Comment: Speci men Type: BLOOD SPECIMENOrdering Facility: [facility] Address: [address] [place] [address] Performed By: #### 5 7021-8 ####KO LABORATORYCLIA [id number] [address] [place] Monocytes (Bld) [#/Vol] 0.72 10*3/uL Normal <0.87 [facility] Comment on above: Order Comment: Speci men Type: BLOOD SPECIMENOrdering Facility: [facility] Address: [address] [place] [address] Performed By: #### 5 7021-8 ####KO LABORATORYCLIA [id number] [place] [address] [place] Monocytes/100 WBC (Bld) 9.5 % Normal [facility] Comment on above: Order Comment: Speci men Type: BLOOD SPECIMENOrdering Facility: [facility] Address: [address] [place] [address] Performed By: #### 5 7021-8 ####KO LABORATORYCLIA [id number] [place] [address] [place] Neutrophils (Bld) [#/Vol] 3.52 10*3/uL Normal 1.45-7.50 [facility] Comment on above: Order Comment: Speci men Type: BLOOD SPECIMENOrdering Facility: [facility] Address: [address] [place] [address] Performed By: #### 5 7021-8 ####KO LABORATORYCLIA [id number] [address] [place] Neutrophils/100 WBC (Bld) 46.7 % Normal [facility] Comment on above: Order Comment: Speci men Type: BLOOD SPECIMENOrdering Facility: [facility] Address: [address] [place] [address] Performed By: #### 5 7021-8 ####KO LABORATORYCLIA [id number] [place] [address] [place] Nucleated RBC (Bld) [#/Vol] 10*3/uL Normal <0.01 [facility] Comment on above: Order Comment: Speci men Type: BLOOD SPECIMENOrdering Facility: [facility] Address: [address] [place] [address] Performed By: #### 5 7021-8 ####KO LABORATORYCLIA [id number] [place] [address] [place] Nucleated RBC/100 WBC (Bld) [Ratio] 0.0 /100 WBC Normal [facility] Comment on above: Order Comment: Speci men Type: BLOOD SPECIMENOrdering Facility: [facility] Address: [facility] [place] [address] Performed By: #### 5 7021-8 ####KO LABORATORYCLIA [id number] [place] [address] [place] Platelet mean volume (Bld) [Entitic vol] 10.1 fL Normal 9.0-12.7 [facility] Comment on above: Order Comment: Speci men Type: BLOOD SPECIMENOrdering Facility: [facility] Address: [address] [place] [address] Performed By: #### 5 7021-8 ####KO LABORATORYCLIA [id number] [place] [address] [place] Platelets (Bld) [#/Vol] 270 10*3/uL Normal 150-400 [facility] Comment on above: Order Comment: Speci men Type: BLOOD SPECIMENOrdering Facility: [facility] Address: [address] [place] [address] Performed By: #### 5 7021-8 ####KO LABORATORYCLIA [id number] [place] [address] [place] RBC (Bld) [#/Vol] 4.08 10*6/uL Normal 3.90-5.20 [facility] Comment on above: Order Comment: Speci men Type: BLOOD SPECIMENOrdering Facility: [facility] Address: [address] [place] [address] [place] [address] Performed By: #### 5 7021-8 ####KO LABORATORYCLIA [id number] [place] [address] [place] WBC (Bld) [#/Vol] 7.56 10*3/uL Normal 3.70-11.00 [facility] Comment on above: Order Comment: Speci men Type: BLOOD SPECIMENOrdering Facility: [facility] Address: [address] [place] [address] Performed By: #### 5 7021-8 ####KO LABORATORYCLIA [id number] [place] [address] [place] CBC panel Auto (Bld)on 07-12 Erythrocyte distribution width (RBC) [Ratio] 14.6 % Normal 11.5-15.0 [facility] Comment on above: Order Comment: Speci men Type: BLOOD SPECIMEN [facility] Address: [address] [place] [address] Performed By: #### 5 8410-2 #### [facility] CLIA [id number] [address] [place] [address] [place] Hematocrit (Bld) [Volume fraction] 41.7 % Normal 36.0-46.0 [facility] Comment on above: Order Comment: Speci men Type: BLOOD SPECIMEN [facility] Address: [address] [place] [address] Performed By: #### 5 8410-2 #### [facility] CLIA [id number] [address] [place] [address] [place] Hemoglobin (Bld) [Mass/Vol] 13.3 g/dL Normal 11.5-15.5 [facility] Comment on above: Order Comment: Speci men Type: BLOOD SPECIMEN [facility] Address: [address] [place] [address] Performed By: #### 5 8410-2 #### [facility] CLIA [id number] [address] [place] [address] [place] MCH (RBC) [Entitic mass] 29.4 pg Normal 26.0-34.0 [facility] Comment on above: Order Comment: Speci men Type: BLOOD SPECIMEN [facility] Address: [address] [place] [address] Performed By: #### 5 8410-2 #### [facility] CLIA [id number] [address] [place] [address] [place] MCHC (RBC) [Mass/Vol] 31.9 g/dL Normal 30.5-36.0 [facility] Comment on above: Order Comment: Speci men Type: BLOOD SPECIMEN [facility] Address: [address] [place] [address] Performed By: #### 5 8410-2 #### [facility] CLIA [id number] [address] [place] [address] [place] MCV (RBC) [Entitic vol] 92.1 fL Normal 80.0-100.0 [facility] Comment on above: Order Comment: Speci men Type: BLOOD SPECIMEN [facility] Address: [address] [place] [address] Performed By: #### 5 8410-2 #### [facility] CLIA [id number] [address] [place] [address] [place] Nucleated RBC (Bld) [#/Vol] 10*3/uL Normal <0.01 [facility] Comment on above: Order Comment: Speci men Type: BLOOD SPECIMEN [facility] Address: [address] [place] [address] Performed By: #### 5 8410-2 #### [facility] CLIA [id number] [address] [place] [address] [place] Platelet mean volume (Bld) [Entitic vol] 10.3 fL Normal 9.0-12.7 [facility] Comment on above: Order Comment: Speci men Type: BLOOD SPECIMEN [facility] Address: [address] [place] [address] Performed By: #### 5 8410-2 #### [facility] CLIA [id number] [address] [place] [address] [place] Platelets (Bld) [#/Vol] 299 10*3/uL Normal 150-400 [facility] Comment on above: Order Comment: Speci men Type: BLOOD SPECIMEN [facility] Address: [address] [place] [address] Performed By: #### 5 8410-2 #### [facility] CLIA [id number] [address] [place] [address] [place] RBC (Bld) [#/Vol] 4.53 10*6/uL Normal 3.90-5.20 [facility] Comment on above: Order Comment: Lenard jesus Type: BLOOD SPECIMEN [facility] Address: [address] [place] [address] Performed By: #### 5 8410-2 #### [facility] CLIA [id number] [place] [id number] [place] WBC (Bld) [#/Vol] 8.78 10*3/uL Normal 3.70-11.00 [facility] Comment on above: Order Comment: Lenard men Type: BLOOD SPECIMEN [facility] Address: [address] [place] [address] Performed By: #### 5 8410-2 #### [facility] CLIA [id number] [place], [place] [address] [place] CK SerPl-cCncon 07-13-2023 CK [Catalytic activity/Vol] 51 U/L Normal 42-196 [facility] Comment on above: Order Comment: Lenard jesus Type: BLOOD SPECIMENOrdering Facility: [facility] Address: [address] [place] [address] Performed By: #### 1 9123-9, 40841-8, 2157-6 ####[facility] LABORATORYCLIA [id number] [place] [id number] [place] CNDSon 07-13-2023 CNDS HNO ID: [id number] Author: REMINGTON CAI MD Service: Hospital Medicine [...] beta-lorenzo. Unable to schedule pacer defibrillator and [place] and contacted [facility] in August to have Dr. Wellington [...] pacer defibrillator plan to be done at [place] Disposition: Transfer to [place] on [facility] medicine with consult to Dr. Dilcia Wellington [...] Recent Labs (more content not included)... Normal [facility] CNPNon 07-13-2023 CNPN Telephone (FVPRAD) ----- SANDRA SCHMITZ ([id number]) 1945 [place] [employer] Date Time Provider Department 07/13/23 RAHUL BEE During your visit today, we recorded the following information about you: Rahul Bee MD 07/13/2023 7:28 AM Signed Hospital Medicine Transfer Received page for transfer request from [facility] to [facility]: Sandra Schmitz is 77 year old female who presented with non ischemic decompensated heart failure EF 26%. Suspected runs of tachycardia of unclear origin. Being transferred for possible AUTOMATION TECH. Cannot tolerate betablocker. Currently SBP in 100s. No ICD before. Mild CAD. Reason for transfer: Possible AUTOMATION TECH placement Accepted to hospital medicine service at [...] Assessed Reason for Visit: Hospital To Hospital [[id number]] Prescriptions as of 07/13/2023 - metoprolol succinate [...] dysfunction of (more content not included)... Normal [facility] CONSULTon 07-13-2023 CONSULT HNO ID: [id number] Author: BRUNO PENALOZA MD Service: Electrophysiology Author Type: Physician Type: Consults Filed: 07/14/2023 11:43 Note Text: [facility]ARDI[facility]ASCULAR MEDICINE CONSULT NOTE Sandra Schmitz [id number] PRIMARY SERVICE: Internal Medicine CONSULTING SERVICE: Cardiovascular Medicine: Electrophysiology DATE OF ADMISSION: 07/13/2023 DATE OF CONSULT: 07/13/2023 REASON FOR CONSULT Consideration for AUTOMATION TECH-D HISTORY OF PRESENT ILLNESS Sandra Schmitz is a 77 year old female, who presented initially to [facility] due to concerns for chest pressure with associated postural lightheadedness and bendopnea. Shew as subsequently admitted for further evaluation and management. She underwent lexiscan which was negative for inducible ischemia and transthoracic echocardiogram demonstrated persistently reduced ejection fraction of <35%. There was difficulty initiating GDMT due to hypotension and bradycardia. Thus [facility] EP was consutled for consideration for inpatient AUTOMATION TECH implantation given her longstanding LBBB, dating back [...] EC tabletTak (more content not included)... Normal [facility] ECG COMPLETEon 07-13-2023 ECG COMPLETE Ventricular Rate : 5 8 BPM Atrial Rate : 58 BPM P-R Interval : 148 ms QRS Duration : 177 ms Q-T Interval : 485 ms QTC Calculation(Bazett) : 477 ms Calculated P [place] : 36 degrees Calculated R [place] : -23 degrees Calculated T [place] : 151 degrees Sinus rhythm Left bundle branch block Confirmed by ROSALIA WARNER MD ([id number]) on 08/23/2023 1:01:19 PM NAME : SANDRA SCHMITZ PID : [id number] : 1945 Gender : Female Race : ORD : [id number] Procedure Date : Jul 13 2023 17:24:10 Edit Date : Aug 23 2023 13:01:20 Diagnosis: Sinus rhythm Left bundle branch block Confirmed by ROSALIA WARNER MD ([id number]) on 08/23/2023 1:01:19 PM Test Reason : Shortness of Breath Location : 400 : FVEKG 3P31 Overread By : ROSALIA WARNER MD Edited By : ROSALIA WARNER MD Referred By : REMINGTON CAI Acquired by : ILDEFONSO SANCHEZ [facility] HISTORY PHYSICALon HISTORY PHYSICAL HNO ID: [id number] Author: LOUISA CAMP DO Service: Hospital Medicine Author Type: Physician Type: H&P Filed: 07/13/2023 18:22 Note Text: Hospital Medicine Admission History and Physical PRIMARY SERVICE: HOSPITAL MEDICINE Days: Page or epic chat me directly Evenings: Page hospital medicine pager [phone] PATIENT NAME: Sandra Schmitz DATE of SERVICE: July 13, 2023 TIME of SERVICE: 3:14 PM PCP: Mandeep Houser CODE STATUS: No Order ASSESSMENT/PLAN SUMMARY: 77yo female PMH HFrEF, LBBB, hypothyroidism, initially admitted to [facility] for acute on chronic HFrEF. She was stabilized with IV diuresis however course complicated by hypotension and bradycardia. She was transferred to [facility] for biventricular pacer defibrillator placement Acute [...] fibrillation. She has seen Dr. Greenfield the assistant producer. She is to be scheduled for pacer [...] tried to get the procedure scheduled in [place] but they had no openings and Dr. Castro was able to contact Dr. Wellington and patient will be transferred to [facility] on hospital medicine service for her [...] and is agreeable to current plan. Normal [facility] Magnesium [facility] 07-12 Magnesium [Mass/Vol] 2.1 mg/dL Normal 1.7-2.3 [facility] Comment on above: Order Comment: Speci men Type: BLOOD SPECIMENOrdering Facility: [facility] Address: [address] [place] [address] Performed By: #### 2 777-1, 09039-6, 17277-9, 94633-3 ####[facility] LABORATORYCLIA [id number] [address] [place] Magnesium [Mass/Vol] 2.1 mg/dL Normal 1.7-2.3 [facility] Comment on above: Order Comment: Speci men Type: BLOOD SPECIMENOrdering Facility: [facility] Address: [address] [place] [address] Performed By: #### 1 9123-9, 72050-8, 215-6 ####[facility] LABORATORYCLIA [id number] [place] [address] [place] [facility] Natriuretic peptide.B prohormone N-Terminal [Mass/Vol] 2522 pg/mL High <450 [facility] Comment on above: Order Comment: Speci men Type: BLOOD SPECIMENOrdering Facility: [facility] Address: [address] [place] [address] Performed By: #### 2 777-1, 37885-8, 05477-7, 86940-5 ####[place] LABORATORYCLIA [id number] [place] [id number] [facility] NURSING PROGon 07-13-2023 NURSING PROG HNO ID: [id number] Author: MARY LOU CRUZ RN Service: Nursing Author Type: Registered Nurse Type: Nursing Progress Note Filed: 07/13/2023 16:48 Note Text: 1425 Pt arrived to unit with transport from [facility] in stable condition. Tele SR on monitor. Pt oriented to unit and plan of care [address] into see pt. Attempting to wean O2 at this time [facility] NURSING PROG HNO ID: [id number] Author: MISTY ASCENCIO, RN Service: Nursing Author Type: Registered Nurse Type: Nursing Progress Note Filed: 07/13/2023 11:31 Note Text: PATIENT EDUCATION HEART FAILURE PATIENT NAME: Sandra Schmitz PATIENT LOCATION: [place] [id number] SURVIVAL SKILLS: Low Sodium Diet Weight Monitoring and Dry Weight Importance of Follow Up after Discharge Fluid Restriction, if applicable Heart Failure Medications Symptom Management related to heart failure Activity / Physical Exercise Recommendations Smoking cessation counseling if applicable When Patient Should Call Provider Follow up visit for CHF education. Survival Skills revieved. No questions @ this time. Awaiting transfer to [facility]. Electronically Signed By: Misty Ascencio [facility] Phosphate SerPl-ncon 07-12 Phosphate [Mass/Vol] 3.1 mg/dL Normal 2.7-4.8 [facility] Comment on above: Order Comment: Speci men Type: BLOOD SPECIMENOrdering Facility: [facility] Address: [address] [place] [address] Performed By: #### 2 777-1, 41070-6, 17753-1, ####[facility] LABORATORYCLIA [id number] [place] [id number] [place] Renal function 2000 panelon 07-13-2023 Albumin [Mass/Vol] 3.8 g/dL Low 3.9-4.9 [facility] Comment on above: Order Comment: Speci men Type: BLOOD SPECIMENOrdering Facility: [facility] Address: [address] [place] [address] Performed By: #### 1 9123-9, 44324-8, 2156-10 ####[facility] LABORATORYCLIA [id number] [place] [address] [place] Anion gap [Moles/Vol] 9 mmol/L Normal 9-18 [facility] Comment on above: Order Comment: Speci men Type: BLOOD SPECIMENOrdering Facility: [facility] Address: [address] [place] [address] Performed By: #### 1 9123-9, , 2156-10 ####[facility] LABORATORYCLIA [id number] [place] [address] [place] Calcium [Mass/Vol] 9.1 mg/dL Normal 8.5-10.2 [facility] Comment on above: Order Comment: Speci men Type: BLOOD SPECIMENOrdering Facility: [facility] Address: [address] [place] [address] Performed By: #### 1 9123-9, , 2156-10 ####[facility] LABORATORYCLIA [id number] [place] [address] [place] Chloride [Moles/Vol] 103 mmol/L Normal 97-105 [facility] Comment on above: Order Comment: Speci men Type: BLOOD SPECIMENOrdering Facility: [facility] Address: [address] [place] [address] Performed By: #### 1 9123-9, 65127-2, 2156-10 ####KO LABORATORYCLIA [id number] [place] [address] [place] CO2 [Moles/Vol] 31 mmol/L High 22-30 [facility] Comment on above: Order Comment: Lenard jesus Type: BLOOD SPECIMENOrdering Facility: [facility] Address: [address] [place] [address] Performed By: #### 1 9123-9, 40087-5, 2156-10 ####[facility] LABORATORYCLIA [id number] [place] [id number] [place] Creatinine [Mass/Vol] 1.02 mg/dL High 0.58-0.96 [facility] Comment on above: Order Comment: Lenard jesus Type: BLOOD SPECIMENOrdering Facility: [facility] Address: [address] [place] [address] Performed By: #### 1 9123-9, , 2156-10 ####[facility] LABORATORYCLIA [id number] [place] [id number] [place] Creatinine and Glomerular filtration rate.predicted panel (S/P/Bld) 57 mL/min/1.73m??? Low >=60 [facility] Comment on above: Order Comment: [facility] Type: BLOOD SPECIMENOrdering Facility: [facility] Address: [address] [place] [address] Result Comment: Aaron mated Glomerular Filtration Rate [...] actual GFR. Performed By: #### 1 9123-9, 45410-4, 2156-10 ####[facility] LABORATORYCLIA [id number] [place] [id number] [place] Glucose [Mass/Vol] 91 mg/dL Normal 74-99 [facility] Comment on above: Order Comment: [facility] Type: BLOOD SPECIMENOrdering Facility: [facility] Address: [address] [place] [address] Result Comment: The [place] [employer] (ADA) provides guidance for cutoff [...] Standards of Medical Care in Diabetes 2016, [place] [employer]. Diabetes Care. 2016.39(Suppl 1). Performed By: #### 1 9123-9, , 2156-10 ####[facility] LABORATORYCLIA [id number] [place] [address] [place] Phosphate [Mass/Vol] 3.2 mg/dL Normal 2.7-4.8 [facility] Comment on above: Order Comment: Lenard jesus Type: BLOOD SPECIMENOrdering Facility: [facility] Address: [address] [place] [address] Performed By: #### 1 9123-9, , 2156-10 ####KO LABORATORYCLIA [id number] [place] [address] [place] Potassium [Moles/Vol] 4.3 mmol/L Normal 3.7-5.1 [facility] Comment on above: Order Comment: Lenard jesus Type: BLOOD SPECIMENOrdering Facility: [facility] Address: [address] [place] [address] Performed By: #### 1 9123-9, , 2156-10 ####KO LABORATORYCLIA [id number] [place] [id number] [place] Sodium [Moles/Vol] 143 mmol/L Normal 136-144 [facility] Comment on above: Order Comment: Lenard jesus Type: BLOOD SPECIMENOrdering Facility: [facility] Address: [address] [place] [address] Performed By: #### 1 9123-9, , 2156-10 ####KO LABORATORYCLIA [id number] [place] [id number] [place] Urea nitrogen [Mass/Vol] 33 mg/dL High 7- [facility] Comment on above: Order Comment: Speci edin Type: BLOOD SPECIMENOrdering Facility: [facility] Address: [address] [place] [address] Performed By: #### 1 9123-9, 37704-0, 2157-6 ####[facility] LABORATORYCLIA [id number] [place] [id number] [place] XR CHEST 2V [...] is unremarkable. IMPRESSION: No acute cardiopulmonary process. Income Tax Administrator: PSCB Transcribe Date/Time: Jul 13 2023 5:02P Dictated by : LILI MARSH MD This examination was interpreted and the report reviewed and electronically signed by: LILI MARSH MD on Jul 13 2023 5:03PM EST [id number] Normal [facility] CBC W Auto Differential pane l (Bld)on 07-12-2023 Basophils (Bld) [#/Vol] 0.08 10*3/uL Normal <0.11 [facility] Comment on above: Order Comment: Speci edin Type: BLOOD SPECIMENOrdering Facility: [facility] Address: [address] [place] [address] Performed By: #### 5 7021-8 ####[facility] LABORATORYCLIA [id number] [place] [id number] [place] Basophils/100 WBC (Bld) 1.0 % Normal [facility] Comment on above: Order Comment: Speci men Type: BLOOD SPECIMENOrdering Facility: [facility] Address: [address] [place] [address] Performed By: #### 5 7021-8 ####KO LABORATORYCLIA [id number] [address] [place] Differential cell count method Nom (Bld) Auto Normal [facility] Comment on above: Order Comment: Speci men Type: BLOOD SPECIMENOrdering Facility: [facility] Address: [address] [place] [address] Performed By: #### 5 7021-8 ####KO LABORATORYCLIA [id number] [place] [address] [place] Eosinophils (Bld) [#/Vol] 0.27 10*3/uL Normal <0.46 [facility] Comment on above: Order Comment: Speci men Type: BLOOD SPECIMENOrdering Facility: [facility] Address: [address] [place] [address] Performed By: #### 5 7021-8 ####KO LABORATORYCLIA [id number] [address] [place] Eosinophils/100 WBC (Bld) 3.5 % Normal [facility] Comment on above: Order Comment: Speci men Type: BLOOD SPECIMENOrdering Facility: [facility] Address: [address] [place] [address] Performed By: #### 5 7021-8 ####KO LABORATORYCLIA [id number] [address] [place] Erythrocyte distribution width (RBC) [Ratio] 14.8 % Normal 11.5-15.0 [facility] Comment on above: Order Comment: Speci men Type: BLOOD SPECIMENOrdering Facility: [facility] Address: [address] [place] [address] Performed By: #### 5 7021-8 ####KO LABORATORYCLIA [id number] [address] [place] Hematocrit (Bld) [Volume fraction] 38.9 % Normal 36.0-46.0 [facility] Comment on above: Order Comment: Speci men Type: BLOOD SPECIMENOrdering Facility: [facility] Address: [address] [place] [address] Performed By: #### 5 7021-8 ####KO LABORATORYCLIA [id number] [place] [address] [place] Hemoglobin (Bld) [Mass/Vol] 12.2 g/dL Normal 11.5-15.5 [facility] Comment on above: Order Comment: Speci men Type: BLOOD SPECIMENOrdering Facility: [facility] Address: [address] [place] [address] Performed By: #### 5 7021-8 ####KO LABORATORYCLIA [id number] [place] [address] [place] Immature granulocytes (Bld) [#/Vol] 0.03 10*3/uL Normal <0.10 [facility] Comment on above: Order Comment: Speci men Type: BLOOD SPECIMENOrdering Facility: [facility] Address: [address] [place] [address] Performed By: #### 5 7021-8 ####KO LABORATORYCLIA [id number] [place] [address] [place] Immature granulocytes/100 WBC (Bld) 0.4 % Normal [facility] Comment on above: Order Comment: Speci men Type: BLOOD SPECIMENOrdering Facility: [facility] Address: [address] [place] [address] Performed By: #### 5 7021-8 ####KO LABORATORYCLIA [id number] [place] [address] [place] Lymphocytes (Bld) [#/Vol] 2.73 10*3/uL Normal 1.00-4.00 [facility] Comment on above: Order Comment: Speci men Type: BLOOD SPECIMENOrdering Facility: [facility] Address: [address] [place] [address] Performed By: #### 5 7021-8 ####KO LABORATORYCLIA [id number] [address] [place] Lymphocytes/100 WBC (Bld) 35.5 % Normal [facility] Comment on above: Order Comment: Speci men Type: BLOOD SPECIMENOrdering Facility: [facility] Address: [address] [place] [address] Performed By: #### 5 7021-8 ####KO LABORATORYCLIA [id number] [place] [address] [place] MCH (RBC) [Entitic mass] 28.8 pg Normal 26.0-34.0 [facility] Comment on above: Order Comment: Speci men Type: BLOOD SPECIMENOrdering Facility: [facility] Address: [address] [place] [address] Performed By: #### 5 7021-8 ####KO LABORATORYCLIA [id number] [place] [address] [place] MCHC (RBC) [Mass/Vol] 31.4 g/dL Normal 30.5-36.0 [facility] Comment on above: Order Comment: Speci men Type: BLOOD SPECIMENOrdering Facility: [facility] Address: [address] [place] [address] Performed By: #### 5 7021-8 ####KO LABORATORYCLIA [id number] [address] [place] MCV (RBC) [Entitic vol] 92.0 fL Normal 80.0-100.0 [facility] Comment on above: Order Comment: Speci men Type: BLOOD SPECIMENOrdering Facility: [facility] Address: [address] [place] [address] Performed By: #### 5 7021-8 ####KO LABORATORYCLIA [id number] [place] [address] [place] Monocytes (Bld) [#/Vol] 0.76 10*3/uL Normal <0.87 [facility] Comment on above: Order Comment: Speci men Type: BLOOD SPECIMENOrdering Facility: [facility] Address: [address] [place] [address] Performed By: #### 5 7021-8 ####[facility] LABORATORYCLIA [id number] [address] [place] Monocytes/100 WBC (Bld) 9.9 % Normal [facility] Comment on above: Order Comment: Speci men Type: BLOOD SPECIMENOrdering Facility: [facility] Address: [address] [place] [address] Performed By: #### 5 7021-8 ####KO LABORATORYCLIA [id number] [place] [address] [place] Neutrophils (Bld) [#/Vol] 3.82 10*3/uL Normal 1.45-7.50 [facility] Comment on above: Order Comment: Speci men Type: BLOOD SPECIMENOrdering Facility: [facility] Address: [address] [place] [address] Performed By: #### 5 7021-8 ####KO LABORATORYCLIA [id number] [place] [address] [place] Neutrophils/100 WBC (Bld) 49.7 % Normal [facility] Comment on above: Order Comment: Speci men Type: BLOOD SPECIMENOrdering Facility: [facility] Address: [address] [place] [address] Performed By: #### 5 7021-8 ####KO LABORATORYCLIA [id number] [place] [address] [place] Nucleated RBC (Bld) [#/Vol] 10*3/uL Normal <0.01 [facility] Comment on above: Order Comment: Speci men Type: BLOOD SPECIMENOrdering Facility: [facility] Address: [address] [place] [address] Performed By: #### 5 7021-8 ####KO LABORATORYCLIA [id number] [place] [address] [place] Nucleated RBC/100 WBC (Bld) [Ratio] 0.0 /100 WBC Normal [facility] Comment on above: Order Comment: Speci men Type: BLOOD SPECIMENOrdering Facility: [facility] Address: [address] [place] [address] Performed By: #### 5 7021-8 ####KO LABORATORYCLIA [id number] [place] [address] [place] Platelet mean volume (Bld) [Entitic vol] 10.2 fL Normal 9.0-12.7 [facility] Comment on above: Order Comment: Speci men Type: BLOOD SPECIMENOrdering Facility: [facility] Address: [address] [place] [address] Performed By: #### 5 7021-8 ####KO LABORATORYCLIA [id number] [address] Platelets (Bld) [#/Vol] 273 10*3/uL Normal 150-400 [facility] Comment on above: Order Comment: Speci men Type: BLOOD SPECIMENOrdering Facility: [facility] Address: [address] [place] [address] Performed By: #### 5 7021-8 ####KO LABORATORYCLIA [id number] [address] [place] RBC (Bld) [#/Vol] 4.23 10*6/uL Normal 3.90-5.20 [facility] Comment on above: Order Comment: Speci men Type: BLOOD SPECIMENOrdering Facility: [facility] Address: [address] [place] [address] Performed By: #### 5 7021-8 ####KO LABORATORYCLIA [id number] [address] WBC (Bld) [#/Vol] 7.69 10*3/uL Normal 3.70-11.00 [facility] Comment on above: Order Comment: Speci men Type: BLOOD SPECIMENOrdering Facility: [facility] Address: [address] [place] [address] Performed By: #### 5 7021-8 ####KO LABORATORYCLIA [id number] [address] [place] CK SerPl-cCncon 07-12-2023 CK [Catalytic activity/Vol] 51 U/L Normal 42-196 [facility] Comment on above: Order Comment: Speci men Type: BLOOD SPECIMENOrdering Facility: [facility] Address: [address] [place] [address] Performed By: #### 2 157-6, 53459-4, 53931-7 ####KO LABORATORYCLIA [id number] [address] [place] ECHOon 07-12-2023 Echocardiography Echocardiography Rep ort: Transthoracic Echo [facility] Date of service: 07/12/2023 11:47:34 AM Ordering physician: ÁLVARO LOBO Indication: Chest Pain Symptom(s): Chest Pain and Shortness of breath Technologist: Jimena George [facility] Interpreting physician: Cony Almonte MD PATIENT: [...] motion abnormaliti (more content not included)... Normal [facility] Magnesium SerPl-ncon Magnesium [Mass/Vol] 2.1 mg/dL Normal 1.7-2.3 [facility] Comment on above: Order Comment: Speci men Type: BLOOD SPECIMENOrdering Facility: [facility] Address: [address] [place], [place] [address] Performed By: #### 2 157-6, 68990-3, ####[facility] LABORATORYCLIA [id number] [place] [address] [place] Renal function [address] [place] [address] 07-12-2023 Albumin [Mass/Vol] 3.6 g/dL Low 3.9-4.9 [facility] Comment on above: Order Comment: Speci men Type: BLOOD SPECIMENOrdering Facility: [facility] Address: [address] [place], [place] [address] Performed By: #### 2 157-6, 40078-4, ####[facility] LABORATORYCLIA [id number] [place] [address] [place] Anion gap [Moles/Vol] 8 mmol/L Low 9-18 [facility] Comment on above: Order Comment: Speci men Type: BLOOD SPECIMENOrdering Facility: [facility] Address: [address] [place] [id number] Performed By: #### 2 157-6, 55135-8, ####[facility] LABORATORYCLIA [id number] [place] [id number] [place] Calcium [Mass/Vol] 8.8 mg/dL Normal 8.5-10.2 [facility] Comment on above: Order Comment: Speci men Type: BLOOD SPECIMENOrdering Facility: [facility] Address: [address] [place] [address] Performed By: #### 2 157-6, 87070-0, 17312-0 ####KO LABORATORYCLIA [id number] [place] [address] [place] Chloride [Moles/Vol] 103 mmol/L Normal 97-105 [facility] Comment on above: Order Comment: Speci men Type: BLOOD SPECIMENOrdering Facility: [facility] Address: [address] [place] [address] Performed By: #### 2 157-6, 57846-6, 31695-1 ####KO LABORATORYCLIA [id number] [place] [id number] [place] CO2 [Moles/Vol] 28 mmol/L Normal 22-30 [facility] Comment on above: Order Comment: Speci men Type: BLOOD SPECIMENOrdering Facility: [facility] Address: [address] [place] [address] Performed By: #### 2 157-6, 74895-6, ####KO LABORATORYCLIA [id number] [place] [address] [place] Creatinine [Mass/Vol] 0.95 mg/dL Normal 0.58-0.96 [facility] Comment on above: Order Comment: Speci men Type: BLOOD SPECIMENOrdering Facility: [facility] Address: [address] [place] [address] Performed By: #### 2 157-6, 37021-9, 02739-5 ####KO LABORATORYCLIA [id number] [address] [place] Creatinine and Glomerular filtration rate.predicted panel (S/P/Bld) 62 mL/min/1.73m??? Normal >=60 [facility] Comment on above: Order Comment: Speci men Type: BLOOD SPECIMENOrdering Facility: [facility] Address: [address] [place] [address] Result Comment: Aaron mated Glomerular Filtration Rate [...] actual GFR. Performed By: #### 2 157-6, 51204-9, ####[facility] LABORATORYCLIA [id number] [place] [address] [place] Glucose [Mass/Vol] 89 mg/dL Normal 74-99 [facility] Comment on above: Order Comment: Lenard jesus Type: BLOOD SPECIMENOrdering Facility: [facility] Address: [address] [place], [place] [address] Result Comment: The [place] [employer] (ADA) provides guidance for cutoff [...] Standards of Medical Care in Diabetes 2016, [place] [employer]. Diabetes Care. 2016.39(Suppl 1). Performed By: #### 2 157-6, 75144-0, ####[facility] LABORATORYCLIA [id number] [place] [address] [place] Phosphate [Mass/Vol] 3.7 mg/dL Normal 2.7-4.8 [facility] Comment on above: Order Comment: Lenard jeuss Type: BLOOD SPECIMENOrdering Facility: [facility] Address: [address] [place] [address] Performed By: #### 2 157-6, 10879-4, ####[facility] LABORATORYCLIA [id number] [place] [address] [place] Potassium [Moles/Vol] 3.8 mmol/L Normal 3.7-5.1 [facility] Comment on above: Order Comment: Speci men Type: BLOOD SPECIMENOrdering Facility: [facility] Address: [address] [place], [place] [address] Performed By: #### 2 157-6, 47429-4, 21271-7 ####KO LABORATORYCLIA [id number] [place] [address] [facility] [place] Sodium [Moles/Vol] 139 mmol/L Normal 136-144 [facility] Comment on above: Order Comment: Speci men Type: BLOOD SPECIMENOrdering Facility: [facility] Address: [address] [place] [address] Performed By: #### 2 157-6, 62704-0, 56917-8 ####KO LABORATORYCLIA [id number] [place] [id number] [place] Urea nitrogen [Mass/Vol] 34 mg/dL High 7-21 [facility] Comment on above: Order Comment: Speci men Type: BLOOD SPECIMENOrdering Facility: [facility] Address: [address] [place] [address] Performed By: #### 2 157-6, 95679-5, 24636-5 ####KO LABORATORYCLIA [id number] [place] [id number] [facility] ALLIED HEALTHon 07-11-2023 ALLIED HEALTH HNO ID: [id number] Author: DEJAN HERNANDEZ RT(R) Service: Nuclear Medicine [...] PATIENT PRESENTS WITH AN IMPLANTABLE OR ATTACHED COTTON CLEANER: No CREATININE: Creatinine Date Value Ref Range [...] documentation PROCEDURE TYPE: NM Stress: 13.89 mCi [id number] was administered IV for Rest Imaging at 09:05 by [facility]. 35.4 mCi [id number] was administered IV for Stress Imaging at 09:50 by [facility]. PATIENT DISCHARGED TO: Floor A Diagnostic radioactive procedure has taken place, with no further precautions necessary other than routine body substance precautions. More information regarding radiation safety can be found using this link: [email or web address] [email or web address]%20Nuclear%20 Medicine%[email or web address] SIGNATURE: RT Kevin(R) PATIENT NAME: Sandra Schmitz DATE: July 11, 2023 TIME: 10:09 AM PAGER/CONTACT #: [facility] CASE MGT INIT Alicia 2023 CASE MGT INIT TOMASA HNO ID: [id number] Author: LUX AREVALO LISW Service: ? 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 Current Living Arrangements and Support Lives with: [...] home, General wellness, Ambulate a little better [place] of Choice Explained: Are you interested in [...] 11, 2023 TIME: 11:24 AM CONTACT #: [phone] [facility] CBC W Auto Differential pane l (Bld)on 07-11-2023 Basophils (Bld) [#/Vol] 0.07 10*3/uL Normal <0.11 [facility] Comment on above: Order Comment: Speci men Type: BLOOD SPECIMENOrdering Facility: [facility] Address: [address] [place] [address] Performed By: #### 5 7021-8 ####KO LABORATORYCLIA [id number] [place] [address] [place] Basophils/100 WBC (Bld) 1.0 % Normal [facility] Comment on above: Order Comment: Speci men Type: BLOOD SPECIMENOrdering Facility: [facility] Address: [address] [place] [address] Performed By: #### 5 7021-8 ####KO LABORATORYCLIA [id number] [address] Differential cell count method Nom (Bld) Auto Normal [facility] Comment on above: Order Comment: Speci men Type: BLOOD SPECIMENOrdering Facility: [facility] Address: [address] [place] [address] Performed By: #### 5 7021-8 ####KO LABORATORYCLIA [id number] [place] [address] [place] Eosinophils (Bld) [#/Vol] 0.21 10*3/uL Normal <0.46 [facility] Comment on above: Order Comment: Speci men Type: BLOOD SPECIMENOrdering Facility: [facility] Address: [address] [place] [address] Performed By: #### 5 7021-8 ####KO LABORATORYCLIA [id number] [address] Eosinophils/100 WBC (Bld) 3.0 % Normal [facility] Comment on above: Order Comment: Speci men Type: BLOOD SPECIMENOrdering Facility: [facility] Address: [address] [place] [address] Performed By: #### 5 7021-8 ####KO LABORATORYCLIA [id number] [address] [place] Erythrocyte distribution width (RBC) [Ratio] 14.9 % Normal 11.5-15.0 [facility] Comment on above: Order Comment: Speci men Type: BLOOD SPECIMENOrdering Facility: [facility] Address: [address] [place] [address] Performed By: #### 5 7021-8 ####KO LABORATORYCLIA [id number] [address] [place] Hematocrit (Bld) [Volume fraction] 39.7 % Normal 36.0-46.0 [facility] Comment on above: Order Comment: Speci men Type: BLOOD SPECIMENOrdering Facility: [facility] Address: [address] [place] [address] Performed By: #### 5 7021-8 ####KO LABORATORYCLIA [id number] [address] [place] Hemoglobin (Bld) [Mass/Vol] 12.3 g/dL Normal 11.5-15.5 [facility] Comment on above: Order Comment: Speci men Type: BLOOD SPECIMENOrdering Facility: [facility] Address: [address] [place] [address] Performed By: #### 5 7021-8 ####KO LABORATORYCLIA [id number] [place] [address] [place] Immature granulocytes (Bld) [#/Vol] 0.03 10*3/uL Normal <0.10 [facility] Comment on above: Order Comment: Speci men Type: BLOOD SPECIMENOrdering Facility: [facility] Address: [address] [place] [address] Performed By: #### 5 7021-8 ####KO LABORATORYCLIA [id number] [address] [place] Immature granulocytes/100 WBC (Bld) 0.4 % Normal [facility] Comment on above: Order Comment: Speci men Type: BLOOD SPECIMENOrdering Facility: [facility] Address: [address] [place] [address] Performed By: #### 5 7021-8 ####KO LABORATORYCLIA [id number] [place] [address] Lymphocytes (Bld) [#/Vol] 2.77 10*3/uL Normal 1.00-4.00 [facility] Comment on above: Order Comment: Speci men Type: BLOOD SPECIMENOrdering Facility: [facility] Address: [address] [place] [address] Performed By: #### 5 7021-8 ####KO LABORATORYCLIA [id number] [address] Lymphocytes/100 WBC (Bld) 39.9 % Normal [facility] Comment on above: Order Comment: Speci men Type: BLOOD SPECIMENOrdering Facility: [facility] Address: [address] [place] [address] Performed By: #### 5 7021-8 ####KO LABORATORYCLIA [id number] [address] MCH (RBC) [Entitic mass] 28.2 pg Normal 26.0-34.0 [facility] Comment on above: Order Comment: Speci men Type: BLOOD SPECIMENOrdering Facility: [facility] Address: [address] [place] [address] Performed By: #### 5 7021-8 ####KO LABORATORYCLIA [id number] [address] [place] [facility] MCHC (RBC) [Mass/Vol] 31.0 g/dL Normal 30.5-36.0 [facility] Comment on above: Order Comment: Speci men Type: BLOOD SPECIMENOrdering Facility: [facility] Address: [address] [place] [address] Performed By: #### 5 7021-8 ####KO LABORATORYCLIA [id number] [address] MCV (RBC) [Entitic vol] 91.1 fL Normal 80.0-100.0 [facility] Comment on above: Order Comment: Speci men Type: BLOOD SPECIMENOrdering Facility: [facility] Address: [address] [place] [address] Performed By: #### 5 7021-8 ####KO LABORATORYCLIA [id number] [place] [address] [place] Monocytes (Bld) [#/Vol] 0.60 10*3/uL Normal <0.87 [facility] Comment on above: Order Comment: Speci men Type: BLOOD SPECIMENOrdering Facility: [facility] Address: [address] [place] [address] Performed By: #### 5 7021-8 ####KO LABORATORYCLIA [id number] [place] [address] [place] Monocytes/100 WBC (Bld) 8.6 % Normal [facility] Comment on above: Order Comment: Speci men Type: BLOOD SPECIMENOrdering Facility: [facility] Address: [address] [place] [address] Performed By: #### 5 7021-8 ####KO LABORATORYCLIA [id number] [place] [address] [place] Neutrophils (Bld) [#/Vol] 3.26 10*3/uL Normal 1.45-7.50 [facility] Comment on above: Order Comment: Speci men Type: BLOOD SPECIMENOrdering Facility: [facility] Address: [address] [place] [address] Performed By: #### 5 7021-8 ####KO LABORATORYCLIA [id number] [place] [address] [place] Neutrophils/100 WBC (Bld) 47.1 % Normal [facility] Comment on above: Order Comment: Speci men Type: BLOOD SPECIMENOrdering Facility: [facility] Address: [address] [place] [address] Performed By: #### 5 7021-8 ####KO LABORATORYCLIA [id number] [place] [address] [place] Nucleated RBC (Bld) [#/Vol] 10*3/uL Normal <0.01 [facility] Comment on above: Order Comment: Speci men Type: BLOOD SPECIMENOrdering Facility: [facility] Address: [address] [place] [address] Performed By: #### 5 7021-8 ####KO LABORATORYCLIA [id number] [place] [address] [place] Nucleated RBC/100 WBC (Bld) [Ratio] 0.0 /100 WBC Normal [facility] Comment on above: Order Comment: Speci men Type: BLOOD SPECIMENOrdering Facility: [facility] Address: [address] [place] [address] Performed By: #### 5 7021-8 ####KO LABORATORYCLIA [id number] [place] [address] [place] Platelet mean volume (Bld) [Entitic vol] 10.2 fL Normal 9.0-12.7 [facility] Comment on above: Order Comment: Speci men Type: BLOOD SPECIMENOrdering Facility: [facility] Address: [address] [place] [address] Performed By: #### 5 7021-8 ####KO LABORATORYCLIA [id number] [place] [address] [place] Platelets (Bld) [#/Vol] 290 10*3/uL Normal 150-400 [facility] Comment on above: Order Comment: Speci men Type: BLOOD SPECIMENOrdering Facility: [facility] Address: [address] [place] [address] Performed By: #### 5 7021-8 ####KO LABORATORYCLIA [id number] [place] [address] [place] RBC (Bld) [#/Vol] 4.36 10*6/uL Normal 3.90-5.20 [facility] Comment on above: Order Comment: Speci men Type: BLOOD SPECIMENOrdering Facility: [facility] Address: [address] [place] [address] Performed By: #### 5 7021-8 ####KO LABORATORYCLIA [id number] [place] [address] [place] WBC (Bld) [#/Vol] 6.94 10*3/uL Normal 3.70-11.00 [facility] Comment on above: Order Comment: Speci men Type: BLOOD SPECIMENOrdering Facility: [facility] Address: [address] [place] [address] Performed By: #### 5 7021-8 ####[place] LABORATORYCLIA [id number] [place] [address] [place] CK SerPl-cCncon 07-11-2023 CK [Catalytic activity/Vol] 49 U/L Normal 42-196 [facility] Comment on above: Order Comment: Speci men Type: BLOOD SPECIMENOrdering Facility: [facility] Address: [address] [place] [address] Performed By: #### 2 4362-6, 6, ####[facility] LABORATORYCLIA [id number] [place] [address] [place] Magnesium SerPl-mCncon 07-11 Magnesium [Mass/Vol] 2.0 mg/dL Normal 1.7-2.3 [facility] Comment on above: Order Comment: Speci men Type: BLOOD SPECIMENOrdering Facility: [facility] Address: [address] [place] [address] Performed By: #### 2 4362-6, 2156-10, ####[facility] LABORATORYCLIA [id number] [place] [address] [place] NM CARDIAC PERF STRESS/PHARM on 07-11-2023 NM CARDIAC PERF STRESS/PHARM * * *Final Report* * * DATE OF EXAM: Jul 11 2023 10:57AM SKIP 0006 - NM CARDIAC PERF STRESS/PHARM / PROCEDURE REASON: Chest pain/anginal equiv, intermediate CAD risk, not treadmill candidate * * * * Physician Interpretation * * * * Stress Medical Services Assistant Report: [facility] Date of service: 07/11/2023 9:15:02 AM Supervising [...] later. See administered radiotracer and doses below. [facility] Date of service: 07/11/2023 9:15:02 AM Ordering [...] Final * * * Stress ECG Report: [facility] Date of service: 07/11/2023 9:15:02 AM Ordering physician: ÁLVARO LOBO training and documentation specialist: Oumou Piña Tiler: Valery Sung Interpreting physician: Álvaro Lobo MD [...] 101 42 (more content not included)... Normal [facility] NURSING PROGon 07-11-2023 NURSING PROG HNO ID: [id number] Author: MISTY ASCENCIO, RN Service: Nursing Author Type: Registered Nurse Type: Nursing Progress Note Filed: 07/11/2023 14:37 Note Text: PATIENT EDUCATION HEART FAILURE PATIENT NAME: Sandra Schmitz PATIENT LOCATION: [place] [id number] SURVIVAL SKILLS: Low Sodium Diet Weight Monitoring [...] EF @ 29%. Follow Dr Oneill from [place]. Brief overview of CHF, s/s and management [...] Cardiology Electronically Signed By: Misty Ascencio Normal [facility] Renal function 2000 panelon 07-11-2023 Albumin [Mass/Vol] 3.6 g/dL Low 3.9-4.9 [facility] Comment on above: Order Comment: Ernestinei men Type: BLOOD SPECIMENOrdering Facility: [facility] Address: [address] [place] [address] Performed By: #### 2 4362-6, 2156-10, ####[facility] LABORATORYCLIA [id number] [place] [id number] [place] Anion gap [Moles/Vol] 9 mmol/L Normal 9-18 [facility] Comment on above: Order Comment: Speci men Type: BLOOD SPECIMENOrdering Facility: [facility] Address: [address] [place] [address] Performed By: #### 2 4362-6, 2156-10, ####[facility] LABORATORYCLIA [id number] [place] [id number] [place] Calcium [Mass/Vol] 9.2 mg/dL Normal 8.5-10.2 [facility] Comment on above: Order Comment: Speci men Type: BLOOD SPECIMENOrdering Facility: [facility] Address: [address] [place] [id number] Performed By: #### 2 4362-6, 2156-10, ####KO LABORATORYCLIA [id number] [place] [address] [place] Chloride [Moles/Vol] 103 mmol/L Normal 97-105 [facility] Comment on above: Order Comment: Speci men Type: BLOOD SPECIMENOrdering Facility: [facility] Address: [address] [place] [address] Performed By: #### 2 4362-6, 2156-10, ####KO LABORATORYCLIA [id number] [place] [id number] [place] CO2 [Moles/Vol] 29 mmol/L Normal 22-30 [facility] Comment on above: Order Comment: Speci men Type: BLOOD SPECIMENOrdering Facility: [facility] Address: [address] [place] [address] Performed By: #### 2 4362-6, 2156-10, ####[facility] LABORATORYCLIA [id number] [place] [address] [place] Creatinine [Mass/Vol] 0.90 mg/dL Normal 0.58-0.96 [facility] Comment on above: Order Comment: Speci men Type: BLOOD SPECIMENOrdering Facility: [facility] Address: [address] [place] [address] Performed By: #### 2 4362-6, 2156-10, ####[facility] LABORATORYCLIA [id number] [address] [place] Creatinine and Glomerular filtration rate.predicted panel (S/P/Bld) 66 mL/min/1.73m??? Normal >=60 [facility] Comment on above: Order Comment: Speci men Type: BLOOD SPECIMENOrdering Facility: [facility] Address: [address] [place] [address] Result Comment: Aaron mated Glomerular Filtration Rate [...] By: #### 2 4362-6, 2156-10, ####KO LABORATORYCLIA [id number] [place] [address] [place] Glucose [Mass/Vol] 91 mg/dL Normal 74-99 [facility] Comment on above: Order Comment: [facility] Type: BLOOD SPECIMENOrdering Facility: [facility] Address: [address] [place] [address] Result Comment: The [place] [employer] (ADA) provides guidance for cutoff [...] Standards of Medical Care in Diabetes 2016, [place] [employer]. Diabetes Care. 2016.39(Suppl 1). Performed By: #### 2 4362-6, 2156-10, ####[facility] LABORATORYCLIA [id number] [place] [address] [place] Phosphate [Mass/Vol] 3.9 mg/dL Normal 2.7-4.8 [facility] Comment on above: Order Comment: Lenard jesus Type: BLOOD SPECIMENOrdering Facility: [facility] Address: [address] [place] [address] Performed By: #### 2 4362-6, 2156-10, ####[facility] LABORATORYCLIA [id number] [place] [address] [place] Potassium [Moles/Vol] 4.2 mmol/L Normal 3.7-5.1 [facility] Comment on above: Order Comment: Speci men Type: BLOOD SPECIMENOrdering Facility: [facility] Address: [address] [place], [place] [address] Performed By: #### 2 4362-6, 2156-10, ####KO LABORATORYCLIA [id number] [place] [id number] [facility] Sodium [Moles/Vol] 141 mmol/L Normal 136-144 [facility] Comment on above: Order Comment: Speci men Type: BLOOD SPECIMENOrdering Facility: [facility] Address: [address] [place] [address] Performed By: #### 2 4362-6, 2156-10, ####KO LABORATORYCLIA [id number] [place] [id number] [place] Urea nitrogen [Mass/Vol] 29 mg/dL High 7-21 [facility] Comment on above: Order Comment: Speci men Type: BLOOD SPECIMENOrdering Facility: [facility] Address: [address] [place] [address] Performed By: #### 2 4362-6, 2156-10, ####KO LABORATORYCLIA [id number] [place] [id number] [facility] ALLIED HEALTHon 07-10-2023 ALLIED HEALTH HNO ID: [id number] Author: DANIELLE ESTRELLA RT(Marlee) Service: ? Author [...] PATIENT PRESENTS WITH AN IMPLANTABLE OR ATTACHED COTTON CLEANER: No RADIOLOGY DEPARTMENT: General X-ray: Exam(s) Completed: Chest X-Ray PERIPHERAL IV DATA: Not applicable SIGNED BY: RT Maciel(R) July 10, 2023 8:12 AM Normal [facility] CBC W Auto Differential pane l (Bld)on 07-10-2023 Basophils (Bld) [#/Vol] 0.11 10*3/uL High <0.11 [facility] Comment on above: Order Comment: Speci men Type: BLOOD SPECIMENOrdering Facility: [facility] Address: [address] [place] [address] Performed By: #### 5 7021-8 ####KO LABORATORYCLIA [id number] [place] [address] [place] Basophils/100 WBC (Bld) 1.3 % Normal [facility] Comment on above: Order Comment: Speci men Type: BLOOD SPECIMENOrdering Facility: [facility] Address: [address] [place] [address] Performed By: #### 5 7021-8 ####KO LABORATORYCLIA [id number] [place] [address] [place] Differential cell count method Nom (Bld) Auto Normal [facility] Comment on above: Order Comment: Speci men Type: BLOOD SPECIMENOrdering Facility: [facility] Address: [address] [place] [address] Performed By: #### 5 7021-8 ####KO LABORATORYCLIA [id number] [place] [address] [place] Eosinophils (Bld) [#/Vol] 0.26 10*3/uL Normal <0.46 [facility] Comment on above: Order Comment: Speci men Type: BLOOD SPECIMENOrdering Facility: [facility] Address: [address] [place] [address] Performed By: #### 5 7021-8 ####KO LABORATORYCLIA [id number] [place] [address] [place] Eosinophils/100 WBC (Bld) 3.0 % Normal [facility] Comment on above: Order Comment: Speci men Type: BLOOD SPECIMENOrdering Facility: [facility] Address: [address] [place] [address] Performed By: #### 5 7021-8 ####KO LABORATORYCLIA [id number] [place] [address] [place] Erythrocyte distribution width (RBC) [Ratio] 14.8 % Normal 11.5-15.0 [facility] Comment on above: Order Comment: Speci men Type: BLOOD SPECIMENOrdering Facility: [facility] Address: [address] [place] [address] Performed By: #### 5 7021-8 ####KO LABORATORYCLIA [id number] [place] [address] [place] Hematocrit (Bld) [Volume fraction] 42.8 % Normal 36.0-46.0 [facility] Comment on above: Order Comment: Speci men Type: BLOOD SPECIMENOrdering Facility: [facility] Address: [address] [place] [address] Performed By: #### 5 7021-8 ####KO LABORATORYCLIA [id number] [place] [address] [place] Hemoglobin (Bld) [Mass/Vol] 14.0 g/dL Normal 11.5-15.5 [facility] Comment on above: Order Comment: Speci men Type: BLOOD SPECIMENOrdering Facility: [facility] Address: [address] [place] [address] Performed By: #### 5 7021-8 ####KO LABORATORYCLIA [id number] [place] [address] [place] Immature granulocytes (Bld) [#/Vol] 0.05 10*3/uL Normal <0.10 [facility] Comment on above: Order Comment: Speci men Type: BLOOD SPECIMENOrdering Facility: [facility] Address: [address] [place] [address] Performed By: #### 5 7021-8 ####KO LABORATORYCLIA [id number] [place] [address] [place] Immature granulocytes/100 WBC (Bld) 0.6 % Normal [facility] Comment on above: Order Comment: Speci men Type: BLOOD SPECIMENOrdering Facility: [facility] Address: [address] [place] [address] Performed By: #### 5 7021-8 ####KO LABORATORYCLIA [id number] [address] Lymphocytes (Bld) [#/Vol] 3.08 10*3/uL Normal 1.00-4.00 [facility] Comment on above: Order Comment: Speci men Type: BLOOD SPECIMENOrdering Facility: [facility] Address: [address] [place] [address] Performed By: #### 5 7021-8 ####KO LABORATORYCLIA [id number] [address] Lymphocytes/100 WBC (Bld) 35.7 % Normal [facility] Comment on above: Order Comment: Speci men Type: BLOOD SPECIMENOrdering Facility: [facility] Address: [address] [place] [address] Performed By: #### 5 7021-8 ####KO LABORATORYCLIA [id number] [address] MCH (RBC) [Entitic mass] 29.9 pg Normal 26.0-34.0 [facility] Comment on above: Order Comment: Speci men Type: BLOOD SPECIMENOrdering Facility: [facility] Address: [address] [place] [address] Performed By: #### 5 7021-8 ####KO LABORATORYCLIA [id number] [address] MCHC (RBC) [Mass/Vol] 32.7 g/dL Normal 30.5-36.0 [facility] Comment on above: Order Comment: Speci men Type: BLOOD SPECIMENOrdering Facility: [facility] Address: [address] [place] [address] Performed By: #### 5 7021-8 ####[place] LABORATORYCLIA [id number] [address] MCV (RBC) [Entitic vol] 91.5 fL Normal 80.0-100.0 [facility] Comment on above: Order Comment: Speci men Type: BLOOD SPECIMENOrdering Facility: [facility] Address: [address] [place] [address] Performed By: #### 5 7021-8 ####KO LABORATORYCLIA [id number] [place] [address] [place] Monocytes (Bld) [#/Vol] 0.68 10*3/uL Normal <0.87 [facility] Comment on above: Order Comment: Speci men Type: BLOOD SPECIMENOrdering Facility: [facility] Address: [address] [place] [address] Performed By: #### 5 7021-8 ####KO LABORATORYCLIA [id number] [place] [address] [place] Monocytes/100 WBC (Bld) 7.9 % Normal [facility] Comment on above: Order Comment: Speci men Type: BLOOD SPECIMENOrdering Facility: [facility] Address: [address] [place] [address] Performed By: #### 5 7021-8 ####KO LABORATORYCLIA [id number] [place] [address] [place] Neutrophils (Bld) [#/Vol] 4.45 10*3/uL Normal 1.45-7.50 [facility] Comment on above: Order Comment: Speci men Type: BLOOD SPECIMENOrdering Facility: [facility] Address: [address] [place] [address] Performed By: #### 5 7021-8 ####KO LABORATORYCLIA [id number] [place] [address] [place] Neutrophils/100 WBC (Bld) 51.5 % Normal [facility] Comment on above: Order Comment: Speci men Type: BLOOD SPECIMENOrdering Facility: [facility] Address: [address] [place] [address] Performed By: #### 5 7021-8 ####KO LABORATORYCLIA [id number] [place] [address] [place] Nucleated RBC (Bld) [#/Vol] 10*3/uL Normal <0.01 [facility] Comment on above: Order Comment: Speci men Type: BLOOD SPECIMENOrdering Facility: [facility] Address: [address] [place] [address] Performed By: #### 5 7021-8 ####KO LABORATORYCLIA [id number] [place] [address] [place] Nucleated RBC/100 WBC (Bld) [Ratio] 0.0 /100 WBC Normal [facility] Comment on above: Order Comment: Speci men Type: BLOOD SPECIMENOrdering Facility: [facility] Address: [address] [place] [address] Performed By: #### 5 7021-8 ####KO LABORATORYCLIA [id number] [place] [address] [place] Platelet mean volume (Bld) [Entitic vol] 10.0 fL Normal 9.0-12.7 [facility] Comment on above: Order Comment: Speci men Type: BLOOD SPECIMENOrdering Facility: [facility] Address: [address] [place] [address] Performed By: #### 5 7021-8 ####KO LABORATORYCLIA [id number] [place] [address] [place] Platelets (Bld) [#/Vol] 313 10*3/uL Normal 150-400 [facility] Comment on above: Order Comment: Speci men Type: BLOOD SPECIMENOrdering Facility: [facility] Address: [address] [place] [address] Performed By: #### 5 7021-8 ####KO LABORATORYCLIA [id number] [place] [address] [place] RBC (Bld) [#/Vol] 4.68 10*6/uL Normal 3.90-5.20 [facility] Comment on above: Order Comment: Speci men Type: BLOOD SPECIMENOrdering Facility: [facility] Address: [address] [place] [address] Performed By: #### 5 7021-8 ####KO LABORATORYCLIA [id number] [place] [address] [place] WBC (Bld) [#/Vol] 8.63 10*3/uL Normal 3.70-11.00 [facility] Comment on above: Order Comment: Speci men Type: BLOOD SPECIMENOrdering Facility: [facility] Address: [address] [place] [address] Performed By: #### 5 7021-8 ####[facility] LABORATORYCLIA [id number] [address] [place] CK TOTAL AND CK-MBon 024 CK [Catalytic activity/Vol] 57 U/L Normal 42-196 [facility] Comment on above: Order Comment: Speci men Type: BLOOD SPECIMENOrdering Facility: [facility] Address: [address] [place] [address] Performed By: #### 3 084-1, 2777-1, [id number], , CKCKMB ####[facility] LABORATORYCLIA [id number] [address] CK.MB [Mass/Vol] 2.3 ng/mL Normal <4.4 [facility] Comment on above: Order Comment: Speci men Type: BLOOD SPECIMENOrdering Facility: [facility] Address: [address] [place] [address] Performed By: #### 3 084-1, 2777-1, [id number], , CKCKMB ####[facility] LABORATORYCLIA [id number] [address] CK.MB [Ratio] Normal [facility] Comment on above: Order Comment: Speci men Type: BLOOD SPECIMENOrdering Facility: [facility] Address: [address] [place] [address] Result Comment: CK M B % not reported with CK <100 U/L. Performed By: #### 3 084-1, 2777-1, [id number], , [id number] ####[facility] LABORATORYCLIA [id number] [address] OF [place] CONSULTon 07-10-2023 CONSULT HNO ID: [id number] Author: ÁLVARO LOBO MD Service: Cardiovascular Medicine Author Type: Physician Type: Consults Filed: 07/10/2023 15:09 Note Text: Heart and Vascular Leopold Angel and Lizy Eduardo Department of Cardiovascular Medicine SECTION OF [facility] CARDIOLOGY/[facility] Consultation Note Name: [...] grade I DD, trace MR, TR, mild OH, asc Ao 3.6c m, atrial septal aneurysm Cardiac cath 10/2021: mod LAD, D1 prox 40%, mild RCA disease dominant, EF 35%. She was seen by EP on 06/12/23 and was planned for AUTOMATION TECH-D. She follows with Dr. Oneill, last seen in clinic on 06/04/23. PAST MEDICAL HISTORY Diagnosis Date Acute acalculous cholecystitis 05/30/2020 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 09/22/2020 Acute on chronic systolic CHF (congestive heart failure) ([facility]) 05/03/2020 Aspiration pneumonia (HCC) 05/30/2020 Chest pain [...] Numbness, Tingli (more content not included)... Normal [facility] Comprehensive metabolic 2000 panelon 07-10-2023 Albumin [Mass/Vol] 4.2 g/dL Normal 3.9-4.9 [facility] Comment on above: Order Comment: Lenard jesus Type: BLOOD SPECIMENOrdering Facility: [facility] Address: [address] [place] [address] Performed By: #### 3 3762-6, 35300-6, [id number] ####KO LABORATORYCLIA [id number] [address] STATES OF [facility] ALP [Catalytic activity/Vol] 61 U/L Normal 34-123 [facility] Comment on above: Order Comment: Lenard jesus Type: BLOOD SPECIMENOrdering Facility: [facility] Address: [address] [place] [address] Performed By: #### 3 3762-6, 94598-8, [id number] ####KO LABORATORYCLIA [id number] [address] [place] [facility] ALT [Catalytic activity/Vol] 12 U/L Normal 7-38 [facility] Comment on above: Order Comment: Lenard jesus Type: BLOOD SPECIMENOrdering Facility: [facility] Address: [address] [place] [address] Performed By: #### 3 3762-6, 14246-0, [id number] ####KO LABORATORYCLIA [id number] [place] [address] [place] [facility] Anion gap [Moles/Vol] 9 mmol/L Normal 9-18 [facility] Comment on above: Order Comment: Speci men Type: BLOOD SPECIMENOrdering Facility: [facility] Address: [address] [place] [address] Performed By: #### 3 3762-6, 01389-1, [id number] ####KO LABORATORYCLIA [id number] [place] [address] [place] AST [Catalytic activity/Vol] 17 U/L Normal 13-35 [facility] Comment on above: Order Comment: Speci men Type: BLOOD SPECIMENOrdering Facility: [facility] Address: [address] [place] [address] Performed By: #### 3 3762-6, 23752-3, [id number] ####KO LABORATORYCLIA [id number] [place] [address] [place] Bilirubin [Mass/Vol] 0.3 mg/dL Normal 0.2-1.3 [facility] Comment on above: Order Comment: Speci men Type: BLOOD SPECIMENOrdering Facility: [facility] Address: [address] [place] [address] Performed By: #### 3 3762-6, 20797-2, [id number] ####KO LABORATORYCLIA [id number] [address] STATES [place] Calcium [Mass/Vol] 9.9 mg/dL Normal 8.5-10.2 [facility] Comment on above: Order Comment: Speci men Type: BLOOD SPECIMENOrdering Facility: [facility] Address: [address] [place] [address] Performed By: #### 3 3762-6, 61164-1, [id number] ####KO LABORATORYCLIA [id number] [place] [address] [place] Chloride [Moles/Vol] 104 mmol/L Normal 97-105 [facility] Comment on above: Order Comment: Speci men Type: BLOOD SPECIMENOrdering Facility: [facility] Address: [address] [place] [address] Performed By: #### 3 3762-6, 70135-1, [id number] ####KO LABORATORYCLIA [id number] [place] [address] [place] [facility] CO2 [Moles/Vol] 28 mmol/L Normal 22-30 [facility] Comment on above: Order Comment: Lenard jesus Type: BLOOD SPECIMENOrdering Facility: [facility] Address: [address] [place] [address] Performed By: #### 3 3762-6, 39098-8, [id number] ####KO LABORATORYCLIA [id number] [place] [address] [place] Creatinine [Mass/Vol] 0.89 mg/dL Normal 0.58-0.96 [facility] Comment on above: Order Comment: Speci men Type: BLOOD SPECIMENOrdering Facility: [facility] Address: [address] [place] [address] Performed By: #### 3 3762-6, 98086-3, [id number] ####KO LABORATORYCLIA [id number] [address] Creatinine and Glomerular filtration rate.predicted panel (S/P/Bld) 67 mL/min/1.73m??? Normal >=60 [facility] Comment on above: Order Comment: Lenard jesus Type: BLOOD SPECIMENOrdering Facility: [facility] Address: [address] [place] [address] Result Comment: Aaron mated Glomerular Filtration Rate [...] actual GFR. Performed By: #### 3 3762-6, 68030-2, [id number] ####KO LABORATORYCLIA [id number] [address] STATES [place] Glucose [Mass/Vol] 105 mg/dL High 74-99 [facility] Comment on above: Order Comment: Speci men Type: BLOOD SPECIMENOrdering Facility: [facility] Address: [address] [place] [address] Result Comment: The [place] [employer] Association (ADA) provides guidance for cutoff [...] Standards of Medical Care in Diabetes 2016, [place] [employer]. Diabetes Care. 2016.39(Suppl 1). Performed By: #### 3 3762-6, 93160-4, [id number] ####KO LABORATORYCLIA [id number] [place] [address] [place] Potassium [Moles/Vol] 4.3 mmol/L Normal 3.7-5.1 [facility] Comment on above: Order Comment: Lenard jesus Type: BLOOD SPECIMENOrdering Facility: [facility] Address: [address] [place] [address] Performed By: #### 3 3762-6, 51023-5, [id number] ####KO LABORATORYCLIA [id number] [place] [address] [place] Protein [Mass/Vol] 7.5 g/dL Normal 6.3-8.0 [facility] Comment on above: Order Comment: Lenard jesus Type: BLOOD SPECIMENOrdering Facility: [facility] Address: [address] [place] [address] Performed By: #### 3 3762-6, 18305-1, [id number] ####KO LABORATORYCLIA [id number] [place] [address] [place] Sodium [Moles/Vol] 141 mmol/L Normal 136-144 [facility] Comment on above: Order Comment: Lenard jesus Type: BLOOD SPECIMENOrdering Facility: [facility] Address: [address] [place] [address] Performed By: #### 3 3762-6, 62139-0, [id number] ####KO LABORATORYCLIA [id number] [place] [address] [facility] Urea nitrogen [Mass/Vol] 33 mg/dL High 7-21 [facility] Comment on above: Order Comment: Speci men Type: BLOOD SPECIMENOrdering Facility: [facility] Address: [address] [address] [id number] Performed By: #### 3 3762-6, 78909-2, [id number] ####[facility] LABORATORYCLIA [id number] [place] [id number] [facility] ED NOTEon 07-10-2023 ED NOTE HNO ID: [id number] Author: OLIVERIO RITTER, CARO Service: Nursing Author Type: Registered Nurse Type: ED Notes Filed: 07/10/2023 13:06 Note Text: Report called to 4S RN at this time. [facility] ED NOTE HNO ID: [id number] Author: OLIVERIO RITTER RN Service: Nursing Author Type: Registered Nurse Type: ED Notes Filed: 07/10/2023 12:50 Note Text: Dr. Sams rounding on patient at bedside at this time. [facility] ED NOTE HNO ID: [id number] Author: OLIVERIO RITTER RN Service: Nursing Author Type: Registered Nurse Type: ED Notes Filed: 07/10/2023 12:13 Note Text: Room air ambulatory pulse oximetry obtained at 92-93%. Patient returned to bed. Patient tolerated fairly. She does endorse that she has unsteadiness and dizziness when ambulating. SPO2 90% on RA when returned to bed. Discussed with Dr. Medina at this time. [facility] ED NOTE HNO ID: [id number] Author: BENTLEY PATTON RN Service: ? Author Type: Registered Nurse Type: ED Notes Filed: 07/10/2023 07:50 Note Text: Pt spo2 noted to be 89-90% on room air. Placed on O2, 2lpm via NC. Dr. Medina aware. [facility] ED NOTE HNO ID: [id number] Author: MARY LOU LIGHT, CARO Service: ? Author Type: Registered Nurse Type: ED Notes Filed: 07/10/2023 07:17 Note Text: Chest pressure woke her up out of sleep at approx 0430 C/O chest pressure 6/10 [facility] ED PROV NOTEon 07-10-2023 ED PROV NOTE HNO ID: [id number] Author: JIM MEDINA MD Service: ? Author [...] Mouth/Throat: M (more content not included)... Normal [facility] EKGon 07-10-2023 Electrocardiogram Ventricular Rate : 7 2 BPM Atrial Rate : 72 BPM P-R Interval : 134 ms QRS Duration : 172 ms Q-T Interval : 424 ms QTC Calculation(Bazett) : 464 ms Calculated P Brownwood : 39 degrees Calculated R [place] : -10 degrees Calculated T [place] : 153 degrees NORMAL SINUS RHYTHM LEFT BUNDLE BRANCH BLOCK ABNORMAL ECG 716 Confirmed by MD MEDINA MICHAEL ([id number]), non linear editor Alyssa Russell ([id number]) on 07/10/2023 3:39:44 PM NAME : SANDRA SCHMITZ PID : [id number] : 1945 Gender : Female Race : ORD : Procedure Date : Jul 10 2023 07:12:14 Edit Date : Jul 10 2023 15:39:46 Diagnosis: NORMAL SINUS RHYTHM LEFT BUNDLE BRANCH BLOCK ABNORMAL ECG 716 Confirmed by MD MEDINA MICHAEL ([id number]), non linear editor Alyssa Russell ([id number]) on 07/10/2023 3:39:44 PM Test Reason : Location : 1 : ER ED Overread By : MD MEDINA MICHAEL Edited By : Alyssa Russell Referred By : , Acquired by : Terrie AMADOR [facility] HIGH SENSITIVITY TROPONIN T (INITIAL)on 07-10-2023 Troponin T.cardiac High sensitivity method [Mass/Vol] 25 ng/L High <12 [facility] Comment on above: Order Comment: Speci men Type: BLOOD SPECIMENOrdering Facility: [facility] Address: [address] [place] [address] Result Comment: When assessing risk for acute [...] day MACE. Performed By: #### 3 3762-6, 94047-8, [id number] ####KO LABORATORYCLIA [id number] [place] [address] [place] HIGH SENSITIVITY TROPONIN T (SECOND)on 07-10-2023 Troponin T.cardiac High sensitivity method [Mass/Vol] 25 ng/L High <12 [facility] Comment on above: Order Comment: Lenard jesus Type: BLOOD SPECIMENOrdering Facility: [facility] Address: [address] [place] [address] Result Comment: When assessing risk for acute [...] 30 day MACE. Performed By: #### L [id number] ####KO LABORATORYCLIA [id number] [place] [address] [place] HIGH SENSITIVITY TROPONIN T (THIRD) 3 HRS AFTER INITIALon 07-10-2023 Troponin T.cardiac High sensitivity method [Mass/Vol] 24 ng/L High <12 [facility] Comment on above: Order Comment: Lenard jesus Type: BLOOD SPECIMENOrdering Facility: [facility] Address: [address] [place] [address] Result Comment: When assessing risk for acute [...] MACE. Performed By: #### 3 084-1, 2777-1, [id number], 80913-2, CKCKMB ####KO LABORATORYCLIA [id number] [place] [address] [place] HISTORY PHYSICALon HISTORY PHYSICAL HNO ID: [id number] Author: REMINGTON CAI MD Service: Hospital Medicine Author Type: Physician Type: H&P Filed: 07/10/2023 13:52 Note Text: DEPARTMENT OF HOSPITAL MEDICINE HISTORY AND PHYSICAL EXAM SERVICE DATE: 07/10/2023 SERVICE TIME: 1:49 PM Hospital Medicine/Primary Attending: Remington Cai MD NIGHT AND WEEKEND COVERAGE: [place] [facility]: Nights: [phone], please page [facility] Night coverage pager [phone]. Admission date: 07/10/2023 MEDICAL DECISION MAKING Reason for Admission: Chest pain Reviewed notes: Interpreted labs: Interpreted imaging indpendently: Interpreted EKG independently: See EKG interpretation below. ASSESSMENT/PLAN Chest y-vwj-wpjaaiynkvoh with elevated left hemidiaphragm and bibasilar atelectasis [...] fibrillation. She has seen Dr. Greenfield the assistant producer. She is to be scheduled for pacer [...] S1: decreased (more content not included)... Normal [facility] Magnesium [Mass/Vol] 2.0 mg/dL Normal 1.7-2.3 [facility] Comment on above: Order Comment: [facility] Type: BLOOD SPECIMENOrdering Facility: [facility] Address: [address] [place] [address] Performed By: #### 3 084-1, 2777-1, [id number], 69563-5, CKCKMB ####[facility] LABORATORYCLIA [id number] [place] [address] [place] NT-proBNP [facility] Natriuretic peptide.B prohormone N-Terminal [Mass/Vol] 3171 pg/mL High <450 [facility] Comment on above: Order Comment: [facility] Type: BLOOD SPECIMENOrdering Facility: [facility] Address: [address] [place] [address] Performed By: #### 3 3762-6, 56170-2, [id number] ####[facility] LABORATORYCLIA [id number] [place] [id number] [place] [facility]ate [facility] Phosphate [Mass/Vol] 3.6 mg/dL Normal 2.7-4.8 [facility] Comment on above: Order Comment: Speci men Type: BLOOD SPECIMENOrdering Facility: [facility] Address: [address] [place] [address] Performed By: #### 3 084-1, 2777-1, [id number], 48518-1, CKCKMB ####[facility] LABORATORYCLIA [id number] [address] Urate SerPl-mCncon Urate [Mass/Vol] 9.1 mg/dL High 2.5-6.6 [facility] Comment on above: Order Comment: Speci men Type: BLOOD SPECIMENOrdering Facility: [facility] Address: [address] [place] [address] Performed By: #### 3 084-1, 2777-1, [id number], 04032-9, CKCKMB ####[facility] LABORATORYCLIA [id number] [address] Urinalysis complete panel (U )on 07-10-2023 Bacteria LM.HPF (Urine sed) [#/Area] Few Abnormal None Seen [facility] Comment on above: Order Comment: Speci men Type: URINE SPECIMENOrdering Facility: [facility] Address: [address] [place] [address] Performed By: #### 2 4356-8 ####[facility] LABORATORYCLIA [id number] [address] Bilirubin Ql (U) Negative Normal Negative [facility] Comment on above: Order Comment: Speci men Type: URINE SPECIMENOrdering Facility: [facility] Address: [address] [place] [address] Performed By: #### 2 4356-8 ####[facility] LABORATORYCLIA [id number] [address] Clarity (Unsp spec) Clear Normal Clear [facility] Comment on above: Order Comment: Speci men Type: URINE SPECIMENOrdering Facility: [facility] Address: [address] [place] [address] Performed By: #### 2 4356-8 ####KO LABORATORYCLIA [id number] [place] [address] [place] Color (U) Yellow Normal Yellow [facility] Comment on above: Order Comment: Speci men Type: URINE SPECIMENOrdering Facility: [facility] Address: [address] [place] [address] Performed By: #### 2 4356-8 ####KO LABORATORYCLIA [id number] [place] [address] [place] Epithelial cells LM.HPF (Urine sed) [#/Area] Few Normal [facility] Comment on above: Order Comment: Speci men Type: URINE SPECIMENOrdering Facility: [facility] Address: [address] [place] [address] Performed By: #### 2 4356-8 ####KO LABORATORYCLIA [id number] [address] [place] Glucose Test strip (U) [Mass/Vol] Negative Normal Negative [facility] Comment on above: Order Comment: Speci men Type: URINE SPECIMENOrdering Facility: [facility] Address: [address] [place] [address] Performed By: #### 2 4356-8 ####KO LABORATORYCLIA [id number] [address] [place] Hemoglobin Ql (U) Negative Normal Negative [facility] Comment on above: Order Comment: Speci men Type: URINE SPECIMENOrdering Facility: [facility] Address: [address] [place] [address] Performed By: #### 2 4356-8 ####KO LABORATORYCLIA [id number] [place] [address] [place] Ketones Ql (U) Negative Normal Negative [facility] Comment on above: Order Comment: Speci men Type: URINE SPECIMENOrdering Facility: [facility] Address: [facility] [place] [address] Performed By: #### 2 4356-8 ####KO LABORATORYCLIA [id number] [address] [place] Leukocyte esterase Test strip Ql (U) Negative Normal Negative [facility] Comment on above: Order Comment: Speci men Type: URINE SPECIMENOrdering Facility: [facility] Address: [address] [place] [address] Performed By: #### 2 4356-8 ####KO LABORATORYCLIA [id number] [place] [address] [place] Nitrite Ql (U) Negative Normal Negative [facility] Comment on above: Order Comment: Speci men Type: URINE SPECIMENOrdering Facility: [facility] Address: [address] [place] [address] Performed By: #### 2 4356-8 ####KO LABORATORYCLIA [id number] [place] [address] [place] pH (U) 6.5 [pH] Normal 5.0-8.0 [facility] Comment on above: Order Comment: Speci men Type: URINE SPECIMENOrdering Facility: [facility] Address: [address] [place] [address] Performed By: #### 2 4356-8 ####KO LABORATORYCLIA [id number] [place] [address] [place] Protein (U) [Mass/Vol] Negative Normal Negative [facility] Comment on above: Order Comment: Speci men Type: URINE SPECIMENOrdering Facility: [facility] Address: [address] [place] [address] Performed By: #### 2 4356-8 ####KO LABORATORYCLIA [id number] [place] [address] [place] RBC LM.HPF (Urine sed) [#/Area] 0-3 /HPF Normal 0-3 /HPF [facility] Comment on above: Order Comment: Speci men Type: URINE SPECIMENOrdering Facility: [facility] Address: [address] [place] [address] Performed By: #### 2 4356-8 ####KO LABORATORYCLIA [id number] [place] [address] [place] Specific gravity (U) [Rel density] <=1.005 Low 1.005-1.030 [facility] Comment on above: Order Comment: Speci men Type: URINE SPECIMENOrdering Facility: [facility] Address: [address] [place] [address] Performed By: #### 2 4356-8 ####KO LABORATORYCLIA [id number] [address] Urobilinogen Ql (U) 0.2 EU/dL Normal 0.2-1.0 EU/dL [facility] Comment on above: Order Comment: Speci men Type: URINE SPECIMENOrdering Facility: [facility] Address: [address] [place] [address] Performed By: #### 2 4356-8 ####[facility] LABORATORYCLIA [id number] [address] [place] WBC LM.HPF (Urine sed) [#/Area] 0-5 /HPF Normal 0-5 /HPF [facility] Comment on above: Order Comment: Speci men Type: URINE SPECIMENOrdering Facility: [facility] Address: [address] [place] [address] Performed By: #### 2 4356-8 ####[facility] LABORATORYCLIA [id number] [address] OF [facility] XR CHEST 2V FRONTAL/LATon XR CHEST [...] tissues: Unremarkable. IMPRESSION: No acute radiographic abnormality. Income Tax Administrator: KEYANA Transcribe Date/Time: Jul 10 2023 8:19A Dictated by : YESENIA GUZMAN MD This examination was interpreted and the report reviewed and electronically signed by: YESENIA GUZMAN MD on Jul 10 2023 8:20AM EST [id number] [facility] 06-12-2023 [facility] Office Visit (AGCARD POB) ----- SANDRA SCHMITZ ([id number]) 1945 [address] [employer]* Date Time Provider Department 06/12/23 3:20 PM [facility] During your visit today, we recorded the following information about you: Pulse Blood pressure Weight Height 68/minute 115/74 86.2 kg 1.6 m Randa Smith MA 06/12/2023 4:02 PM Signed No cardiac complaints today. FELIPE Rios Sergey Aleksandrovich, MD 06/12/2023 4:02 PM Signed Heart and Vascular [facility] SECTION OF CARDIAC PACING and ELECTROPHYSIOLOGY OUTPATIENT VISIT DATE June 12, 2023 OUTPATIENT VISIT TYPE NEW PRIMARY CARE PHYSICIAN: Mandeep Houser [address] [place] [phone] REFERRING PHYSICIAN: Santo Oneill MD. HISTORY OF PRESENT ILLNESS: 77-year-old female with history of nonischemic cardiomyopathy, severe LV systolic function, LVEF of 30% despite GDMT, LBBB with QRS of 170 ms, was referred for consideration of AUTOMATION TECH-D system implantation for prevention of sudden cardiac [...] on chronic systolic CHF (congestive heart failure) ([facility]) 05/03/2020 Aspiration pneumonia ([facility]) 05/30/2020 Chest pain 05/03/2020 Chest pressure 01/23/2013 Chronic diastolic congestive heart failure ([facility]) 02/14/2021 Clostridium difficile diarrhea 09/28/2020 Complete uterovaginal prolapse Cystocele, midline Essential hypertension 06/14/2020 Homozygous Factor V Leiden mutation ([facility]) 05/03/2020 Hypothyroidism IBS (irritable bowel syndrome) 01/23/2013 [...] syncope. Psychiatric/Behavior (more content not included)... Normal [facility] XR Chest PA and Lateralon IMPRESSION: Stable exam with mild cardiomegaly and nonspecific parenchymal changes in left lung base. Income Tax Administrator: KEYANA Transcribe Date/Time: May 20 2023 10:19A Dictated by : KRISHNA CRUZ MD This examination was interpreted and the report reviewed and electronically signed by: KRISHNA CRUZ MD on May 20 2023 10:20AM [facility] DIVISION OF RADIOLOGY * * *Final [...] soft tissues: Unremarkable. DIVISION OF RADIOLOGY Provider, [facility] - 05/20/2023 * * *Final Report* * [...] nonspecific parenchymal changes in left lung base. Income Tax Administrator: PSCB Transcribe Date/Time: May 20 2023 10:19A Dictated by : KRISHNA CRUZ MD This examination was interpreted and the report reviewed and electronically signed by: KRISHNA CRUZ MD on May 20 2023 10:20AM EST [facility] XR Chest PA and LateralOrder ed By: Cc Provider on 05-20-[address] [facility] XR Chest PA and Lateralon Radiology Study observation (narrative) [facility] XR CHEST 2V FRONTAL/LATon [facility] STREP A MOLECULAR (POC)on Procedural Control Valid [facility] Strep A (POCT) Negative Negative [facility] CT ABD/PEL W IVCONon [address] [facility] DXA-AXIAL SKELETONon [address] [facility] VITAMIN D 25 HYDROXYon 07-22 25-hydroxyvitamin D3 [Mass/Vol] 45.2 ng/mL 31.0 - 80.0 ng/mL [facility] CBC panel Auto (Bld)on 07-21 Erythrocyte distribution width (RBC) [Ratio] 14.2 % 11.5 - 15.0 % [facility] Hematocrit (Bld) [Volume fraction] 41.8 % 36.0 - 46.0 % [facility] Hemoglobin (Bld) [Mass/Vol] 13.1 g/dL 11.5 - 15.5 g/dL [facility] MCH (RBC) [Entitic mass] 29.3 pg 26.0 - 34.[address] [facility] MCHC (RBC) [Mass/Vol] 31.3 g/dL 30.5 - 36.0 g/dL [facility] MCV (RBC) [Entitic vol] 93.5 fL 80.0 - 100.[address] [facility] Nucleated RBC (Bld) [#/Vol] <0.01 k/uL [facility] Platelet mean volume (Bld) [Entitic vol] 10.6 fL 9.0 - 12.[address] [facility] Platelets (Bld) [#/Vol] 346 10*3/uL 150 - 400 k/uL [facility] RBC (Bld) [#/Vol] 4.47 10*6/uL 3.90 - 5.2 0 m/uL [facility] WBC (Bld) [#/Vol] 9.77 10*3/uL 3.70 - 11.00 k/uL [facility] Comprehensive metabolic 2000 panelon 07-21-2022 Albumin [Mass/Vol] 4.2 g/dL 3.9 - 4.9 g/dL [facility] ALP [Catalytic activity/Vol] 61 U/L 34 - 123 U/L [facility] ALT [Catalytic activity/Vol] 12 U/L 7 - 38 U/L [facility] Anion gap [Moles/Vol] 8 mmol/L Low 9 - 18 mmol/L [facility] AST [Catalytic activity/Vol] 15 U/L 13 - 35 U/L [facility] Bilirubin [Mass/Vol] 0.6 mg/dL 0.2 - 1 .3 mg/dL [facility] Calcium [Mass/Vol] 9.6 mg/dL 8.5 - 10. 2 mg/dL [facility] Chloride [Moles/Vol] 106 mmol/L High 97 - 10 5 mmol/L [facility] CO2 [Moles/Vol] 28 mmol/L 22 - 30 mmol/L [facility] Creatinine [Mass/Vol] 0.75 mg/dL 0.58 - 0.96 mg/dL [facility] Estimated Glomerular Filtration Rate 83 mL/min/1.73m >=60 mL/min/1.[address] [facility] Glucose [Mass/Vol] 68 mg/dL Low 74 - 99 mg/dL [facility] Potassium [Moles/Vol] 4.3 mmol/L 3.7 - 5.1 mmol/L [facility] Protein [Mass/Vol] 7.0 g/dL 6.3 - 8.0 g/dL [facility] Sodium [Moles/Vol] 142 mmol/L 136 - 144 mmol/L [facility] Urea nitrogen [Mass/Vol] 20 mg/dL 7 - 21 mg/dL [facility] HbA1c (Bld)on 07-21-2022 Average glucose Estimated from glycated hemoglobin (Bld) [Mass/Vol] 117 mg/dL [facility] HbA1c (Bld) [Mass fraction] 5.7 % High 4.3 - 5.6 % [facility] Lipid 1996 panelon Cholesterol [Mass/Vol] 220 mg/dL High <200 mg/dL [facility] Cholesterol in HDL [Mass/Vol] 46 mg/dL >39 mg/dL [facility] Cholesterol in LDL [Mass/Vol] 137 mg/dL High <100 mg/dL [facility] Cholesterol in LDL/Cholesterol in HDL [Mass ratio] 2.98 {ratio} High <2.[address] [facility] Cholesterol in VLDL [Mass/Vol] 37 mg/dL High <30 mg/dL [facility] Cholesterol non HDL [Mass/Vol] 174 mg/dL High <130 mg/dL [facility] Cholesterol.total/Chol esterol in HDL [Mass ratio] 4.78 {ratio} <5.[address] [facility] Fasting Time [address] [facility] Triglyceride [Mass/Vol] 184 mg/dL High <150 mg/dL [facility] T3 [facility] 07-21-2022 T3 [Mass/Vol] 75 ng/dL Low 79 - 165 ng/dL [facility] T4 FREE/FREE THYROXon 2022 Free T4 [Mass/Vol] 1.6 ng/dL 0.9 - 1.7 ng/dL [facility] TSH [facility] 07-21-2022 TSH Qn 1.880 m[IU]/L 0.270 - 4.200 mIU/L [facility] VITAMIN B12 BLOODon 07-22-19 Cobalamin (Vitamin B12) [Mass/Vol] 246 pg/mL 232 - 1,245 pg/mL [facility] ALGN ALMOND IGEon 05-23-2022 [place] IgE Qn (S) <0.35 KU/L [facility] ALGN CASHEW NUT IGEon 2022 Cashew nut IgE Qn (S) <0.35 KU/L [facility] ALGN GLUTEN IGEon 05-23-2022 Gluten IgE Qn (S) <0.35 kU/l [facility] ALGN PEANUT IGEon 05-23-2022 Peanut IgE Qn (S) <0.35 kU/l [facility] ALGN PECAN NUT IGEon 023 Pecan or Barron Nut IgE Qn (S) <0.35 kU/l [facility] ALGN WHEAT IGEon 05-23-2022 Wheat IgE Qn (S) <0.35 kU/l [facility] [place] IgE Qn (S)on 05-23-19 [place] IgE RAST class (S) Class 0 Class [address] [facility] Cashew nut IgE Qn (S)on 05-14 Cashew nut IgE RAST class (S) Class 0 Class [address] [facility] Comprehensive metabolic 2000 panelon 05-23-2022 Albumin [Mass/Vol] 4.4 g/dL 3.9 - 4.9 g/dL [facility] ALP [Catalytic activity/Vol] 65 U/L 34 - 123 U/L [facility] ALT [Catalytic activity/Vol] 12 U/L 7 - 38 U/L [facility] Anion gap [Moles/Vol] 12 mmol/L 9 - 18 mmol/L [facility] AST [Catalytic activity/Vol] 25 U/L 13 - 35 U/L [facility] Bilirubin [Mass/Vol] 0.8 mg/dL 0.2 - 1 .3 mg/dL [facility] Calcium [Mass/Vol] 9.9 mg/dL 8.5 - 10. 2 mg/dL [facility] Chloride [Moles/Vol] 101 mmol/L 97 - 10 5 mmol/L [facility] CO2 [Moles/Vol] 25 mmol/L 22 - 30 mmol/L [facility] Creatinine [Mass/Vol] 0.90 mg/dL 0.58 - 0.96 mg/dL [facility] Estimated Glomerular Filtration Rate 67 mL/min/1.73m >=60 mL/min/1.[address] [facility] Glucose [Mass/Vol] 73 mg/dL Low 74 - 99 mg/dL [facility] Potassium [Moles/Vol] 4.7 mmol/L 3.7 - 5.1 mmol/L [facility] Protein [Mass/Vol] 7.6 g/dL 6.3 - 8.0 g/dL [facility] Sodium [Moles/Vol] 138 mmol/L 136 - 144 mmol/L [facility] Urea nitrogen [Mass/Vol] 27 mg/dL High 7 - 21 mg/dL [facility] Gluten IgE Qn (S)on 05-23-19 Gluten IgE RAST class (S) Class 0 Class [address] [facility] Peanut IgE Qn (S)on 05-23-19 Peanut IgE RAST class (S) Class 0 Class [address] [facility] Pecan or Barron Nut IgE Qn (S)on 05-23-2022 Pecan or Barron Nut IgE RAST class (S) Class 0 Class [address] [facility] URINE CULTUREon 05-23-2022 Bacteria identified Cx Nom (U) No growth (<1,000 CFU/ml) [facility] Urinalysis complete panel (U )on 05-23-2022 Bilirubin Ql (U) Negative Negative [facility] Clarity (Unsp spec) Clear Clear [facility] Color (U) Light Yellow Yellow [facility] Epithelial cells LM.HPF (Urine sed) [#/Area] Few [facility] Glucose Test strip (U) [Mass/Vol] Negative Trace, Negative [facility] Hemoglobin Ql (U) Negative Negative, Trace [facility] Hyaline casts (Urine sed) [#/Area] 1-3 /LPF Abnormal 0 /LPF [facility] Ketones Ql (U) Negative Trace, Negative [facility] Leukocyte esterase Test strip Ql (U) Negative Negative, 25 Cruz/mL [facility] Nitrite Ql (U) Negative Negative [facility] pH (U) 6.5 [pH] 5.0 - 8.[address] [facility] Protein (U) [Mass/Vol] 1+ Abnormal Trace , Negative [facility] RBC LM.HPF (Urine sed) [#/Area] 0-3 /HPF 0-3 /HPF [facility] Specific gravity (U) [Rel density] 1.023 1.005 - 1.[address] [facility] Urobilinogen Ql (U) Negative Negative [facility] WBC LM.HPF (Urine sed) [#/Area] 0-5 /HPF 0-5 /HPF [facility] Wheat IgE Qn (S)on Wheat IgE RAST class (S) Class 0 Class [address] [facility] CBC W Auto Differential pane l (Bld)on 05-22-2022 Basophils (Bld) [#/Vol] 0.12 10*3/uL High <0.11 k/uL [facility] Basophils/100 WBC (Bld) 1.4 % [facility] Differential cell count method Nom (Bld) Auto [facility] Eosinophils (Bld) [#/Vol] 0.26 10*3/uL <0.46 k/uL [facility] Eosinophils/100 WBC (Bld) 3.0 % [facility] Erythrocyte distribution width (RBC) [Ratio] 14.6 % 11.5 - 15.0 % [facility] Hematocrit (Bld) [Volume fraction] 44.9 % 36.0 - 46.0 % [facility] Hemoglobin (Bld) [Mass/Vol] 14.2 g/dL 11.5 - 15.5 g/dL [facility] Immature granulocytes (Bld) [#/Vol] 0.03 10*3/uL <0.10 k/uL [facility] Immature granulocytes/100 WBC (Bld) 0.3 % [facility] Lymphocytes (Bld) [#/Vol] 3.76 10*3/uL 1.00 - 4.00 k/uL [facility] Lymphocytes/100 WBC (Bld) 42.8 % [facility] MCH (RBC) [Entitic mass] 29.4 pg 26.0 - 34.[address] [facility] MCHC (RBC) [Mass/Vol] 31.6 g/dL 30.5 - 36.0 g/dL [facility] MCV (RBC) [Entitic vol] 93.0 fL 80.0 - 100.[address] [facility] Monocytes (Bld) [#/Vol] 0.82 10*3/uL <0.87 k/uL [facility] Monocytes/100 WBC (Bld) 9.3 % [facility] Neutrophils (Bld) [#/Vol] 3.80 10*3/uL 1.45 - 7.50 k/uL [facility] Neutrophils/100 WBC (Bld) 43.2 % [facility] Nucleated RBC (Bld) [#/Vol] <0.01 k/uL [facility] Nucleated RBC/100 WBC (Bld) [Ratio] 0.0 /[address] [facility] Platelet mean volume (Bld) [Entitic vol] 10.8 fL 9.0 - 12.[address] [facility] Platelets (Bld) [#/Vol] 365 10*3/uL 150 - 400 k/uL [facility] RBC (Bld) [#/Vol] 4.83 10*6/uL 3.90 - 5.2 0 m/uL [facility] WBC (Bld) [#/Vol] 8.79 10*3/uL 3.70 - 11.00 k/uL [facility] No Panel Informationon 12-05 [facility] CT ABD/PEL W IVCONon [address] [facility] No Panel InformationOrdered By: Ccf Provider on 09-02-[address] [facility] XR Elbow - left AP and Later jones 09-02-2021 IMPRESSION: NO ACUTE FINDINGS. Income Tax Administrator: KEYANA Transcribe Date/Time: Sep 02 2021 7:52A [...] - ZZZ_DO_NOT_ USE_DIVISIO N OF RADIOLOGY Provider, [facility] - 09/02/2021 * * *Final Report* * [...] preserved. - IMPRESSION IMPRESSION: NO ACUTE FINDINGS. Income Tax Administrator: PSCB Transcribe Date/Time: Sep 02 2021 7:52A Dictated by : MALCOM GELLER MD This examination was interpreted and the report reviewed and electronically signed by: MALCOM GELLER MD on Sep 02 2021 7:53AM EST [facility] XR Shoulder - left 2 Viewson 09-02-2021 IMPRESSION: NO ACUTE FINDINGS. Income Tax Administrator: PSCB Transcribe Date/Time: Sep 02 2021 7:53A [...] - ZZZ_DO_NOT_ USE_DIVISIO N OF RADIOLOGY Provider, [facility] - 09/02/2021 * * *Final Report* * [...] maintained. - IMPRESSION IMPRESSION: NO ACUTE FINDINGS. Income Tax Administrator: PSCMykel Transcribe Date/Time: Sep 02 2021 7:53A Dictated by : MALCOM GELLER MD This examination was interpreted and the report reviewed and electronically signed by: MALCOM GELLER MD on Sep 02 2021 7:53AM EST [facility] Panel Informationon 09-01 Radiology Study observation (narrative) [facility] KARTHIK SCREENINGon 08-15-[address] [facility] XR Ankle - right AP and Late ral and obliqueon 01-05-2021 IMPRESSION: No radiographic evidence of acute osseous injury. Plantar calcaneal enthesophyte. Income Tax Administrator: KEYANA Transcribe Date/Time: Jan 05 2021 10:38A [...] plantar calcaneal enthesophyte. DIVISION OF RADIOLOGY Provider, [facility] - 01/05/2021 * * *Final [...] of acute osseous injury. Plantar calcaneal enthesophyte. Income Tax Administrator[facility] Transcribe Date/Time: Jan 05 2021 10:38A Dictated by : ZEKE TIRADO MD This examination was interpreted and the report reviewed and electronically signed by: ZEKE TIRADO MD on Jan 05 2021 10:39AM EST [facility] Radiology Study observation (narrative) [facility] XR Ankle - right AP and Late ral and obliqueOrdered By: Ccf Provider on 01-05-[address] [facility] XR Toes - left 3 Viewson IMPRESSION: Refer to the result. Income Tax Administrator: PSCMykel Transcribe Date/Time: Aug 02 2020 12:20P Dictated by : BUCK MARRUFO MD This examination was interpreted and the report reviewed and electronically signed by: BUCK MARRUFO MD on Aug 02 2020 12:25PM [facility] DIVISION OF RADIOLOGY * * *Final [...] proximal interphalangeal joint. DIVISION OF RADIOLOGY Provider, [facility] - 08/02/2020 * * *Final Report* * [...] joint. IMPRESSION IMPRESSION: Refer to the result. Income Tax Administrator: KEYANA Transcribe Date/Time: Aug 02 2020 12:20P Dictated by : BUCK MARRUFO MD This examination was interpreted and the report reviewed and electronically signed by: BUCK MARRUFO MD on Aug 02 2020 12:25PM EST [facility] Radiology Study observation (narrative) [facility] XR Toes - left 3 ViewsOrdere d By: Ccf Provider on 08-02-[address] [facility] XR CHEST 2V FRONTAL/LATon XR CHEST [...] tissues: Unremarkable. IMPRESSION: No acute radiographic abnormality. Income Tax Administrator: [facility] Transcribe Date/Time: May 26 2020 9:36A Dictated by : SALLIE BUTTS MD This examination was interpreted and the report reviewed and electronically signed by: SALLIE BUTTS MD on May 26 2020 9:39AM EST Normal [facility] No Panel Informationon 04-[address] [facility] FIN[employer]CIAL INTERNSHIP - Office Visiton 02-11 [employer] - Office Visit Chief Complaint Patient here for pessary check. It is causing her discomfort. 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 Status: Declined History of Present IllnessDr. Kameron [...] 81 MG Oral Tablet Delayed Release; Therapy: (Recorded:[id number]) to Recorded Dispense: 0 Days ; #: Sufficient; Refill: 0; ZAK = N; Record; Last Updated By: Bety Iverson; 01/28/2020 1:21:26 PM Fontanez Concentrate Oral Concentrate; Therapy: (Recorded:[id number]) to Recorded Dispense: 0 Days ; #: Sufficient; Refill: 0; ZAK = N; Record; Last Updated By: Bety Iverson; 01/28/2020 1:21:27 PM Vitamin D3 25 MCG (1000 UT) Oral Tablet; TAKE 1 TABLET DAILY; Therapy: (Recorded:[id number]) to Recorded Dispense: 0 Days ; #: Sufficient Tablet; Refill: 0; ZAK = N; Record; Last Updated By: Bety Iverson; 01/28/2020 1:21:27 PM Vitals Vital Signs Recorded: 44Wst1233 10:13AM Zpxmvejs796 Jvomylkec99 Npjjvn596 lb BMI Voddchdkob57.9 BSA Calculated1.92 Physical Exam Constitutional: Alert and [...] Cx Nom (U) PATIENT: SANDRA SCHMITZ LOCATION: [facility]#: [id number] : 47 AGE: SEX: F ORDERED BY: ISAEL MELO: URINE COLLECTED: 02/04/20 16:53ANTIBIOTICS AT [facility]HA[place].: RECEIVED : 02/05/20 00:18SITE: R E S U L T S URINE CULTURE,BACTERIAL FINAL 02/05/20 18:51 NO SIGNIFICANT GROWTH. [facility] Work Phone: FINANCIAL INTERNSHIP - Office Visiton 01-13 FINANCIAL INTERNSHIP - Office Visit Chief Complaint recheck pessary, refer from DR. Doll History of Present Pgdubys68 y.o. W and 1 ectopic with prior [...] Tablet; TAKE 1 TABLET DAILY Requested for: [id number]; Last Rx:[id number] Ordered Rx By: Rafael Frank III; Dispense: 90 Days ; #:90 Tablet; Refill: 1;For: Hypothyroidism; ZAK = N; Print Rx; Last Updated By: Bety Iverson; 01/28/2020 1:21:26 PM Aspirin Adult Low Dose 81 MG Oral Tablet Delayed Release; Therapy: (Recorded:[id number]) to Recorded Dispense: 0 Days ; #: Sufficient; Refill: 0; ZAK = N; Record; Last Updated By: Bety Iverson; 01/28/2020 1:21:26 PM Fontanez Concentrate Oral Concentrate; Therapy: (Recorded:[id number]) to Recorded Dispense: 0 Days ; #: Sufficient; Refill: 0; ZAK = N; Record; Last Updated By: Bety Iverson; 01/28/2020 1:21:27 PM Vitamin D3 25 MCG (1000 UT) Oral Tablet; TAKE 1 TABLET DAILY; Therapy: (Recorded:[id number]) to Recorded Dispense: 0 Days ; #: Sufficient Tablet; Refill: 0; ZAK = N; Record; Last Updated By: Bety Iverson; 01/28/2020 1:21:27 PM Vitals Vital Signs Recorded: 85Yqe8834 02:16PM Rcjsvybr149 Cevwpsnmv04 Height5 ft 3 in Zjwudp637 lb BMI Iusqyuepne14.43 BSA Calculated1.93 LMPyears ago Gravida2 Para1 Physical [...] (788.1) (R30.0) Orders Cult, Urine; Status:Active; Requested for:[id number]; Perform:Lab Services - Lab To Draw (Non-Blood Test); Due:[id number];Ordered; For:Dysuria; Ordered By:Darren Melo; Urinalysis; Status:Active; Requested for:[id number]; Perform:Lab Services - Lab To Draw (Non-Blood Test); Due:[id number];Ordered; For:Dysuria; Ordered By:Darren Melo; Provider Impressions Utero [...] MICROSCOPICon 02-04-2020 BACTERIA 4+ /HPF Abnormal [place]/Po [facility] Comment on above: Performed By: #### L IPID #### [address] [address] RBC (Bld) [#/Vol] NONE Normal 0-5 [facility] Comment on above: Performed By: #### L IPID #### [address] [address] SQUAMOUS EPITH. CELLS 3 /HPF Normal [place] inson/Po [facility] Comment on above: Performed By: #### L IPID #### [address] [address] WBC 1 /HPF Normal 0-5 [place]/[facility] Comment on above: Performed By: #### L IPID #### [address] [address] URINALYSISon 02-04-2020 Appearance (U) Clear Normal CLEAR [place]/P o [facility] Comment on above: Performed By: #### U A #### [address] [address] Bilirubin (U) [Mass/Vol] Negative Normal NEGATIVE [place]/[facility] Comment on above: Performed By: #### U A #### [address] [address] BLOOD Negative Normal NEGATIVE [place]/[facility] Comment on above: Performed By: #### U A #### [address] [address] Color (U) Yellow Normal STRAW,YELLO W [place]/[facility] Comment on above: Performed By: #### U A #### [address] [address] Glucose [Mass/Vol] Negative Normal NEGATIVE [place] on/Po [facility] Comment on above: Performed By: #### U A #### [address] [address] Ketones Ql (U) Negative Normal NEGATIVE [place]/P o [facility] Comment on above: Performed By: #### U A #### [address] [address] Leukocyte esterase Test strip Ql (U) MODERATE(2+) Abnormal NEGATIVE [place]/[facility] Comment on above: Performed By: #### U A #### [address] [address] Nitrite Ql (U) Negative Normal NEGATIVE [place]/P o [facility] Comment on above: Performed By: #### U A #### [address] [address] pH (Bld) 6.0 Normal 5.0 - 8.0 [place]/[facility] Comment on above: Performed By: #### U A #### [address] [address] Protein (U) [Mass/Vol] Negative Normal NEGATIVE [place]/Po [facility] Comment on above: Performed By: #### U A #### [address] [address] Specific gravity (U) [Rel density] 1.011 Normal 1.005 - 1.035 [place]/[facility] Comment on above: Performed By: #### U A #### [address] [address] Urobilinogen Qn (U) <2.0 Normal 0.0 - 1.9 [place] son/Po [facility] Comment on above: Performed By: #### U A #### [address] [address] URINE CULTURE,BACTERIALon URINE CULTURE,BACTERIAL PATIENT: SANDRA SCHMITZ LOCATION: [facility]#: [id number] : 47 AGE: SEX: F ORDERED BY: DARREN MELO SOURCE: URINE COLLECTED: 02/04/20 16:53 ANTIBIOTICS AT [place]HA[place].: RECEIVED : 02/05/20 00:18 SITE: R E Eileen U L T S URINE CULTURE,BACTERIAL FINAL 02/05/20 18:51 NO SIGNIFICANT GROWTH. Normal [place]/[facility] Comment on above: Performed By: #### L IPID #### [facility] [address] [place] [address] Urinalysison 02-04-2020 Appearance (U) Clear CLEAR [facility] [employer] Work Phone: Color (U) Yellow See Below [facility] [employer] Work Phone: Comment on above: Reference Range: STR AW,YELLOW Glucose Ql (U) Negative NEGATIVE [facility] [employer] Work Phone: Ketones Ql (U) Negative NEGATIVE [facility] [employer] Work Phone: Leukocyte esterase Test strip Ql (U) MODERATE(2+) Abnormal NEGATIVE [facility] [employer] Work Phone: pH (U) 6.0 [pH] 5.0 - 8.0 [facility] [employer] Work Phone: Protein (U) [Mass/Vol] Negative NEGATIVE [facility] [employer] Work Phone: RBC (U) [#/Vol] Negative NEGATIVE [facility] [employer] Phone: Specific gravity (U) [Rel density] 1.011 See Below [facility] [employer] Phone: Comment on above: Reference Range: 1.0 05 - 1.035 Urinalysis Negative NEGATIVE [facility] [employer] Phone: Urinalysis <2.0 0.0 - 1.9 [facility] [employer] Work Phone: Urinalysis, Microscopicon Bacteria LM.HPF (Urine sed) [#/Area] 4+ Abnormal [facility] Work Phone: RBC (Bld) [#/Vol] NONE 0-5 [employer] Work Phone: Urinalysis, Microscopic 1 {/HPF} 0-5 [facility] Work Phone: Urinalysis, Microscopic 3 {/HPF} [facility] [employer] Work Phone: FINANCIAL INTERNSHIP - Office Visiton 01-12 FIN[employer]CIAL INTERNSHIP - Office Visit Chief Complaint PT here for a PESSARY check from 10/21/2019 States she thinks she might have to change sizes. 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 Declined Bety Iverson CMA History of Present [...] Tablet; TAKE 1 TABLET DAILY Requested for: [id number]; Last Rx:[id number] Ordered Rx By: Rafael Frank III; Dispense: [...] PM Vitals Vital Signs Recorded: 28Jan2020 01:21PM Mmrqcgor477 Mcysupnqi58 Height5 ft 3 in Enhrrl417 lb BMI Xhdeqmgtag06.07 BSA Calculated1.93 Physical Exam Constitutional: Alert and [...] [Ratio] 14.0 % Normal 11.5 - 14.5 [facility] Comment on above: Performed By: #### C BC #### [address] [address] Hematocrit (Bld) [Volume fraction] 45.0 % Normal 36.0 - 46.0 [facility] Comment on above: Performed By: #### C BC #### [address] [address] Hemoglobin (Bld) [Mass/Vol] 14.0 g/dL Normal 12.0 - 16.0 [facility] Comment on above: Performed By: #### C BC #### [address] [address] MCHC (RBC) [Mass/Vol] 31.1 g/dL Low 32.0 - 36.0 [facility] Comment on above: Performed By: #### C BC #### [address] [address] MCV (RBC) [Entitic vol] 93 fL Normal 80 - 100 [place]/[facility] Comment on above: Performed By: #### C BC #### [address] [address] Platelets (Bld) [#/Vol] 369 10*3/uL Normal 150 - 450 [place]/[facility] Comment on above: Performed By: #### C BC #### [address] [address] RBC (Bld) [#/Vol] 4.83 x10E12/L Normal 4.00 - 5.20 [place] inson/Po [facility] Comment on above: Performed By: #### C BC #### [address] [address] WBC (Bld) [#/Vol] 8.1 10*3/uL Normal 4.4 - 11.3 [place] on/Po [facility] Comment on above: Performed By: #### C BC #### [address] [address] COMPREHENSIVE PANELon 2019 Albumin [Mass/Vol] 4.2 g/dL Normal 3.4 - 5.0 [place] on/Po [facility] Comment on above: Performed By: #### C MP #### [address] [address] ALP [Catalytic activity/Vol] 58 U/L Normal 33 - 136 [place]/[facility] Comment on above: Performed By: #### C MP #### [address] [address] ALT [Catalytic activity/Vol] 11 U/L Normal 7 - 45 [place]/[facility] Comment on above: Result Comment: [place] ents treated with Sulfasalazine may generate falsely decreased results for ALT. Performed By: #### C MP #### [address] [address] Anion gap [Moles/Vol] 10 mmol/L Normal 10 - 20 [place] ins[place]/Po [facility] Comment on above: Performed By: #### C MP #### [address] [address] AST [Catalytic activity/Vol] 15 U/L Normal 9 - 39 [place]/[facility] Comment on above: Performed By: #### C MP #### [address] [address] Bilirubin [Mass/Vol] 0.4 mg/dL Normal 0.0 - 1.2 [place]/[facility] Comment on above: Performed By: #### C MP #### [address] [address] Calcium [Mass/Vol] 9.5 mg/dL Normal 8.6 - 10.3 [place] Comment on above: Performed By: #### C MP #### [address] [address] Chloride [Moles/Vol] 104 mmol/L Normal 98 - 107 [place]/[facility] Comment on above: Performed By: #### C MP #### [address] [address] Creatinine [Mass/Vol] 0.63 mg/dL Normal 0.50 - 1.05 [place]/[facility] Comment on above: Performed By: #### C MP #### [address] [address] GFR- AM. >60 Normal >60 [place]/ [facility] Comment on above: Result Comment: CALC ULATIONS OF ESTIMATED GFR ARE PERFORMED USING THE MDRD STUDY EQUATION FOR THE IDMS-TRACEABLE CREATININE METHODS. CLIN CHEM 2007;53:766-72 Performed By: #### C MP #### [address] [address] GFR-NON AM. >60 Normal >60 [place] son/Po [facility] Comment on above: Performed By: #### C MP #### [address] [address] Glucose [Mass/Vol] 87 mg/dL Normal 74 - 99 [place] Comment on above: Performed By: #### C MP #### [address] [address] HCO3 (Bld) [Moles/Vol] 31 mmol/L Normal 21 - 32 [place]/[facility] Comment on above: Performed By: #### C MP #### [address] [address] Potassium [Moles/Vol] 4.4 mmol/L Normal 3.5 - 5.3 [place] inson/Po [facility] Comment on above: Performed By: #### C MP #### [address] [address] Protein [Mass/Vol] 7.6 g/dL Normal 6.4 - 8.2 [place] Comment on above: Performed By: #### C MP #### [address] [address] Sodium [Moles/Vol] 141 mmol/L Normal 136 - 145 [place] Comment on above: Performed By: #### C MP #### [address] [address] Urea nitrogen [Mass/Vol] 13 mg/dL Normal 6 - 23 [place] [facility] Comment on above: Performed By: #### C MP #### [address] [address] [facility] 01-22-2020 Cholesterol [Mass/Vol] 248 mg/dL above hig h threshold 0 - 199 [facility] [employer] Work Phone: Comment on above: . AGE [...] dosing. Cholesterol in HDL [Mass/Vol] 51.9 mg/dL [facility] [employer] Phone: Comment on above: . AGE VERY LOW LOW N ORMAL HIGH 0-19 Y < 35 < 40 40-45 ---- 20-24 Y ---- < 40 >45 ---- >24 Y ---- < 40 40-60 >60. Hematologyon 01-22-2020 Hematocrit (Bld) [Volume fraction] 45.0 % See Below [facility] [employer] Phone: Comment on above: Reference Range: 36. 0 - 46.0 Hemoglobin (Bld) [Mass/Vol] 14.0 g/dL See Below [facility] [employer] Phone: Comment on above: Reference Range: 12. 0 - 16.0 MCV (RBC) [Entitic vol] 93 fL 80 - 100 [facility] [employer] Work Phone: Platelets (Bld) [#/Vol] 369 {x10E9/L} 150 - 450 [facility] [employer] Phone: RBC (Bld) [#/Vol] 4.83 {x10E12/L} See Below Wo [facility] [employer] Phone: Comment on above: Reference Range: 4.0 0 - 5.20 WBC (Bld) [#/Vol] 8.1 {x10E9/L} 4.4 - 11.3 [facility] [employer] Work Phone: LIPID PANEL NON-FASTINGon Cholesterol [Mass/Vol] 248 mg/dL High 0 - 199 [facility] Comment on above: Result Comment: . AGE [...] dosing. Performed By: #### L IPIN #### [address] [address] Cholesterol in HDL [Mass/Vol] 51.9 mg/dL Normal [place] Comment on above: Result Comment: . AGE VERY LOW LOW NORMAL HIGH 0-19 Y < 35 < 40 40-45 ---- 20-24 Y ---- < 40 >45 ---- >24 Y ---- < 40 40-60 >60 . Performed By: #### L IPIN #### [address] [address] Cholesterol.total/Chol esterol in HDL [Mass ratio] 4.8 {ratio} Normal [place]/[facility] Comment on above: Result Comment: REF VALUES DESIRABLE < 3.4 HIGH RISK > 5.0 Performed By: #### L IPIN #### [address] [address] NON-HDL CHOLESTEROL 196 mg/dL Normal [facility] Comment on above: Result Comment: AGE DESIRABLE BORDERLINE HIGH HIGH VERY HIGH 0-19 Y 0 - 119 120 - 144 >/= 145 >/= 160 20-24 Y 0 - 149 150 - 189 >/= 190 ---- >24 Y 30 MG/DL ABOVE LDL CHOLESTEROL GOAL . Performed By: #### L IPIN #### [address] [address] Metabolic Panelon 01-22-2020 ALP [Catalytic activity/Vol] 58 U/L 33 - 136 [facility] [employer] Work Phone: Anion gap [Moles/Vol] 10 mmol/L 10 - 20 [facility] [employer] Work Phone: Bilirubin [Mass/Vol] 0.4 mg/dL 0.0 - 1.2 [place] [facility] [employer] Work Phone: Calcium [Mass/Vol] 9.5 mg/dL 8.6 - 10.3 Women are-N [facility] [employer] Phone: Chloride [Moles/Vol] 104 mmol/L 98 - 107 [place] [facility] [employer] Work Phone: CO2 [Moles/Vol] 31 mmol/L 21 - 32 [facility] -[facility] [employer] Work Phone: Creatinine [Mass/Vol] 0.63 mg/dL See Below [facility] [employer] Phone: Comment on above: Reference Range: 0.5 0 - 1.05 Glucose [Mass/Vol] 87 mg/dL 74 - 99 [facility] are-N [facility] [employer] Phone: Potassium [Moles/Vol] 4.4 mmol/L 3.5 - 5.3 [facility] [employer] Phone: Protein [Mass/Vol] 7.6 g/dL 6.4 - 8.2 [facility] are-N [facility] [employer] Phone: Sodium [Moles/Vol] 141 mmol/L 136 - 145 [facility] are-N [facility] [employer] Phone: Urea nitrogen [Mass/Vol] 13 mg/dL 6 - 23 [facility] [employer] Work Phone: Otheron 01-22-2020 Albumin BCP dye [Mass/Vol] 4.2 g/dL 3.4 - 5.0 [facility] [employer] Work Phone: ALT With P-5'-P [Catalytic activity/Vol] 11 U/L 7 - 45 [facility] [employer] Phone: Comment on above: Patients treated wit h Sulfasalazine may generate falsely decreased results for ALT. AST With P-5'-P [Catalytic activity/Vol] 15 U/L 9 - 39 [employer] Phone: Cholesterol non HDL [Mass/Vol] 196 mg/dL [employer] Phone: Comment on above: AGE DESIRABLE BORDER LINE HIGH HIGH VERY HIGH 0-19 Y 0 - 119 120 - 144 >/= 145 >/= 160 20-24 Y 0 - 149 150 - 189 >/= 190 ---- >24 Y 30 MG/DL ABOVE LDL CHOLESTEROL GOAL. Cholesterol.total/Chol esterol in HDL [Mass ratio] 4.8 {ratio} [employer] Phone: Comment on above: REF VALUESDESIRABLE < 3.4HIGH RISK > 5.0 Erythrocyte distribution width (RBC) [Ratio] 14.0 % See Below [employer] Phone: Comment on above: Reference Range: 11. 5 - 14.5 MCHC (RBC) [Mass/Vol] 31.1 g/dL below low threshold See Below [employer] Phone: Comment on above: Reference Range: 32. 0 - 36.0 >60 >60 [employer] Phone: Comment on above: CALCULATIONS OF AARON MATED GFR ARE PERFORMED USING THE MDRD STUDY EQUATION FOR THE IDMS-TRACEABLE CREATININE METHODS. CLIN CHEM 2007;53:766-72 TSHon 01-22-2020 TSH Qn 3.22 m[IU]/L Normal 0.44 - 3.98 [facility] Comment on above: Result Comment: TSH testing is performed using different testing methodology at [facility] than at other [facility]. Direct result comparisons should only be made within the same method. Performed By: #### T [facility] #### [facility] [address] [place] [address] TSH - Thyroid Stimulating Ho rmone, Serumon 01-22-2020 TSH Qn 3.22 {mIU/L} See Below [employer] Phone: Comment on above: Reference Range: 0.4 4 - 3.98 TSH testing is performed using different testing methodology at [facility] than at other [facility]. Direct result comparisons should only be made within the same method. [employer] - Office Visiton [employer] - Office Visit Chief Complaint 3 month [...] Vital Signs Recorded: 21Oct2019 01:20PMRecorded: 21Oct2019 01:19PM [id number] Wmhbywbau51 Yoyhgk196 lb BMI Allowckqxq95.54 BSA Calculated1.91 Physical Exam Constitutional: Alert and [...] [Ratio] 14.2 % Normal 11.5 - 14.5 [facility] Comment on above: Performed By: #### C BC #### [address] [address] Hematocrit (Bld) [Volume fraction] 45.4 % Normal 36.0 - 46.0 [facility] Comment on above: Performed By: #### C BC #### [facility] [address] [place] [address] Hemoglobin (Bld) [Mass/Vol] 13.9 g/dL Normal 12.0 - 16.0 [facility] Comment on above: Performed By: #### C BC #### [address] [address] MCHC (RBC) [Mass/Vol] 30.6 g/dL Low 32.0 - 36.0 [place]/[facility] Comment on above: Performed By: #### C BC #### [address] [address] MCV (RBC) [Entitic vol] 92 fL Normal 80 - 100 [place] [facility] Comment on above: Performed By: #### C BC #### [address] [address] Platelets (Bld) [#/Vol] 349 10*3/uL Normal 150 - 450 [place] [facility] Comment on above: Performed By: #### C BC #### [address] [address] RBC (Bld) [#/Vol] 4.91 x10E12/L Normal 4.00 - 5.20 [place] inson/Po [facility] Comment on above: Performed By: #### C BC #### [address] [address] WBC (Bld) [#/Vol] 8.0 10*3/uL Normal 4.4 - 11.3 [place]/[facility] Comment on above: Performed By: #### C BC #### [address] [address] COMPREHENSIVE PANELon 2019 Albumin [Mass/Vol] 3.9 g/dL Normal 3.4 - 5.0 [place] Comment on above: Performed By: #### C MP #### [address] [address] ALP [Catalytic activity/Vol] 66 U/L Normal 33 - 136 [place] Comment on above: Performed By: #### C MP #### [address] [address] ALT [Catalytic activity/Vol] 10 U/L Normal 7 - 45 [place] Comment on above: Result Comment: [place] ents treated with Sulfasalazine may generate falsely decreased results for ALT. Performed By: #### C MP #### [address] [address] Anion gap [Moles/Vol] 10 mmol/L Normal 10 - 20 [place] inson/Po [facility] Comment on above: Performed By: #### C MP #### [address] [address] AST [Catalytic activity/Vol] 14 U/L Normal 9 - 39 [place] [facility] Comment on above: Performed By: #### C MP #### [address] [address] Bilirubin [Mass/Vol] 0.5 mg/dL Normal 0.0 - 1.2 [place]/[facility] Comment on above: Performed By: #### C MP #### [place] [address] Calcium [Mass/Vol] 9.1 mg/dL Normal 8.6 - 10.3 [place] Comment on above: Performed By: #### C MP #### [place] [address] Chloride [Moles/Vol] 106 mmol/L Normal 98 - 107 [place]/[facility] Comment on above: Performed By: #### C MP #### [address] [address] Creatinine [Mass/Vol] 0.59 mg/dL Normal 0.50 - 1.05 [place]/[facility] Comment on above: Performed By: #### C MP #### [address] [address] GFR- AM. >60 Normal >60 [place]/ [facility] Comment on above: Result Comment: CALC ULATIONS OF ESTIMATED GFR ARE PERFORMED USING THE MDRD STUDY EQUATION FOR THE IDMS-TRACEABLE CREATININE METHODS. CLIN CHEM 2007;53:766-72 Performed By: #### C MP #### [address] [address] GFR-NON AM. >60 Normal >60 [place] son/Po [facility] Comment on above: Performed By: #### C MP #### [address] [address] Glucose [Mass/Vol] 75 mg/dL Normal 74 - 99 [place]/[facility] Comment on above: Performed By: #### C MP #### [address] [address] HCO3 (Bld) [Moles/Vol] 29 mmol/L Normal 21 - 32 [place] [facility] Comment on above: Performed By: #### C MP #### [address] [address] Potassium [Moles/Vol] 4.2 mmol/L Normal 3.5 - 5.3 [place] inson/Po [facility] Comment on above: Performed By: #### C MP #### [address] [address] Protein [Mass/Vol] 6.9 g/dL Normal 6.4 - 8.2 [place]/[facility] Comment on above: Performed By: #### C MP #### [address] [address] Sodium [Moles/Vol] 141 mmol/L Normal 136 - 145 [place]/[facility] Comment on above: Performed By: #### C MP #### [address] [address] Urea nitrogen [Mass/Vol] 17 mg/dL Normal 6 - 23 [place] [facility] Comment on above: Performed By: #### C MP #### [address] [address] LIPID PANEL (CORONARY RISK 2 )on 07-22-2019 Cholesterol [Mass/Vol] 243 mg/dL High 0 - 199 [place] [facility] Comment on above: Result [...] dosing. Performed By: #### L IPID #### [address] [address] Cholesterol in HDL [Mass/Vol] 47.0 mg/dL Normal [facility] Comment on above: Result Comment: . AGE VERY LOW LOW NORMAL HIGH 0-19 Y < 35 < 40 40-45 ---- 20-24 Y ---- < 40 >45 ---- >24 Y ---- < 40 40-60 >60 . Performed By: #### L IPID #### [address] [address] Cholesterol in LDL [Mass/Vol] 151 mg/dL High 0 - 99 [facility] Comment on above: Result Comment: . NEAR BORD AGE DESIRABLE OPTIMAL HIGH HIGH VERY HIGH 0-19 Y 0 - 109 --- 110-129 >/= 130 ---- 20-24 Y 0 - 119 --- 120-159 >/= 160 ---- >24 Y 0 - 99 100-129 130-159 160-189 >/=190 . Performed By: #### L IPID #### [address] [address] Cholesterol in VLDL [Mass/Vol] 45 mg/dL High 0 - 40 [facility] Comment on above: Performed By: #### L IPID #### [address] [address] Cholesterol.total/Chol esterol in HDL [Mass ratio] 5.2 {ratio} Abnormal [facility] Comment on above: Result Comment: REF VALUES DESIRABLE < 3.4 HIGH RISK > 5.0 Performed By: #### L IPID #### [address] [address] NON-HDL CHOLESTEROL 196 mg/dL Normal Robert son/[facility] Comment on above: Result Comment: AGE DESIRABLE BORDERLINE HIGH HIGH VERY HIGH 0-19 Y 0 - 119 120 - 144 >/= 145 >/= 160 20-24 Y 0 - 149 150 - 189 >/= 190 ---- >24 Y 30 MG/DL ABOVE LDL CHOLESTEROL GOAL . Performed By: #### L IPID #### [facility] [address] [place] [address] Triglyceride [Mass/Vol] 225 mg/dL High 0 - 149 [place]/[facility] Comment on above: Result Comment: . AGE [...] dosing. Performed By: #### L IPID #### [address] [address] [employer] - Office Visiton 07-12 [employer] - Office Visit Chief Complaint Pessary Follow Up History of Present Illness here for recheck of pessary, no bleeding. moving to [place] Review of Systems Constitutional: no fever, no [...] ZAK = N; Verified Transmission to [facility]; Last Updated By: SystemDrawn to Scale; 03/18/2019 8:27:37 AM Aspirin Adult Low Dose [...] AM Vitals Vital Signs Recorded: 22Jul2019 11:25AM [id number] Uuxmoqgsq41 Bzanlj523 lb Physical Exam Constitutional: Alert and in [...] Jul 22 2019 11:50AM EST (Author) Normal [facility] TSHon 07-22-2019 TSH Qn 2.12 m[IU]/L Normal 0.44 - 3.98 [place]/[facility] Comment on above: Result Comment: Note new pediatric reference range as of 07/17/2019. TSH testing is performed using different testing methodology at [facility] than at other [facility]. Direct result comparisons should only be made within the same method. Performed By: #### T SH2 #### [facility] [address] [place] [address] VITAMIN D, 25-HYDROXYon 07-12 VITAMIN D, 25-HYDROXY 31 ng/mL Normal [place] ins/[facility] Comment on above: Result Comment: . DEFICIENCY: < 20 NG/ML INSUFFICIENCY: 20-29 NG/ML SUFFICIENCY: 30-100 NG/ML THIS ASSAY ACCURATELY QUANTIFIES THE SUM OF VITAMIN D3, 25-HYDROXY AND VIT D2,25-HYDROXY. Performed By: #### V TDOH #### [facility] [address] [place] [address] CBCon 01-22-2019 Erythrocyte distribution width (RBC) [Ratio] [...] MCHC (RBC) [Mass/Vol] 33.1 g/dL Normal 32.6-36.0 [facility] MCV (RBC) [Entitic vol] 87.7 fL Normal 80.0-100.0 [facility] Mean Plt Vol 8.8 fL Normal 7.2-10.3 [facility] Platelets (Bld) [#/Vol] 362 10*3/uL Normal 144-400 [facility] RBC (Bld) [#/Vol] 4.84 x10E12/L Normal 3.78-5.45 [facility] WBC (Bld) [#/Vol] 7.4 10*3/uL Normal 3.5-11.5 [facility] CMPon 01-22-2019 Albumin [Mass/Vol] 4.0 g/dL Normal 3.5-5.0 [facility] Alk Phos 62 IU/L Normal 32-91 [facility] ALT [Catalytic activity/Vol] 12 U/L Low 14-63 [facility] Anion gap [Moles/Vol] 11.0 mmol/L Normal 5.0-19.0 [facility] AST [Catalytic activity/Vol] 18 U/L Normal 15-41 [facility] Bilirubin [Mass/Vol] 0.5 mg/dL Normal 0.3-1.2 [facility] Bun/CretRatio 18.1 Normal [facility] Calcium [Mass/Vol] 9.5 mg/dL Normal 8.1-10.1 [facility] Chloride [Moles/Vol] 104 mmol/L Normal 98-107 [facility] CO2 [Moles/Vol] 25 mmol/L Normal 22-32 [facility] Creatinine [Mass/Vol] 0.72 mg/dL Normal 0.60-1.30 [facility] Glucose [Mass/Vol] 84 mg/dL Normal 70-100 [facility] Osmolality-Calc 279 mOsm/kg Normal [facility] Potassium [Moles/Vol] 4.0 mmol/L Normal 3.4-5.1 [facility] Protein [Mass/Vol] 7.3 g/dL Normal 6.5-8.1 [facility] [...] 01-22-2019 Cholesterol [Mass/Vol] 219 mg/dL High 0-200 [facility] Cholesterol in HDL [Mass/Vol] 51 mg/dL Normal [facility] Triglyceride [Mass/Vol] 222 mg/dL High 0-149 [facility] JOSÉ ANTONIO/MAMMO SCRN DIGIT BILon 0 12-06-2018 Bilirubin [Mass/Vol] Patient Name: SANDRA SCHMITZ STUDY: JOSÉ ANTONIO/MAMMO SCRN DIGIT MADDI; 12/05/2018 12:40 pm INDICATION: Screening. COMPARISON: 08/22/2017 ACCESSION NUMBER(S): [id number] ORDERING CLINICIAN: MANE SOLIS FINDINGS: The breasts are almost entirely fatty. No suspicious masses or calcifications are identified. This study was interpreted with CAD. Markers: [place]- skin lesion; triangle- palpable abnormality IMPRESSION: No mammographic evidence of malignancy. BI-RADS CATEGORY: Category: 1 - Negative. Recommendation: Continued age appropriate screening mammography For any future breast imaging appointments, please call [phone]). Dictated by: Electronically Signed by: Isiah Dacosta Electronically Signed on: 12/06/2018 4:18 PM Normal [facility] NUC/HIDA W/ CCKon 11-08-2018 NUC/HIDA W/ CCK Patient Name: SANDRA SCHMITZ STUDY: NUC/HIDA W/ CCK; 11/08/2018 3:09 pm INDICATION: RUQ PAIN. COMPARISON: Ultrasound of the abdomen 10/21/2018, CT of the abdomen 10/31/2018 ACCESSION NUMBER(S): [id number] ORDERING CLINICIAN: LC MCCARTHY TECHNIQUE: DIVISION OF [...] as stated. This study was interpreted at [facility], [place], [place]. Dictated by: Electronically Signed by: Moises Macdonald Electronically Signed on: 11/08/2018 3:40 PM Normal [facility] JOSÉ ANTONIO/CT ABD/PELVIS WITHon JOSÉ ANTONIO/CT ABD/PELVIS WITH Patient Name: SANDRA SCHMITZ STUDY: Unremarkable. JOSÉ ANTONIO/CT ABD/PELVIS WITH; 10/31/2018 12:26 pm INDICATION: PAIN. COMPARISON: 08/22/2017 ACCESSION NUMBER(S): [id number] ORDERING CLINICIAN: LC MCCARTHY TECHNIQUE: CT of [...] Stoll Electronically Signed on: 11/04/2018 1:14 PM [facility] Creaton 10-29-2018 Creatinine [Mass/Vol] 0.64 mg/dL Normal 0.60-1.30 [facility] RUL/ABDOMEN LIMITEDon 2018 RUL/ABDOMEN LIMITED Patient Name: SANDRA SCHMITZ STUDY: RUL/ABDOMEN LIMITED; 10/21/2018 9:19 am INDICATION: RUQ ABD PAIN--EAL GB. COMPARISON: None. ACCESSION NUMBER(S): [id number] ORDERING CLINICIAN: LC MCCARTHY TECHNIQUE: Multiple images [...] MCHC (RBC) [Mass/Vol] 32.8 g/dL Normal 32.6-36.0 [facility] MCV (RBC) [Entitic vol] 87.7 fL Normal 80.0-100.0 [facility] Mean Plt Vol 8.7 fL Normal 7.2-10.3 [facility] Platelets (Bld) [#/Vol] 367 10*3/uL Normal 144-400 [facility] RBC (Bld) [#/Vol] 4.82 x10E12/L Normal 3.78-5.45 [facility] WBC (Bld) [#/Vol] 7.4 10*3/uL Normal 3.5-11.5 [facility] CMPon 08-08-2018 Albumin [Mass/Vol] 4.0 g/dL Normal 3.5-5.0 [facility] Alk Phos 56 IU/L Normal 32-91 [facility] ALT [Catalytic activity/Vol] 12 U/L Low 14-63 [facility] Anion gap [Moles/Vol] 12.0 mmol/L Normal 5.0-19.0 [facility] AST [Catalytic activity/Vol] 22 U/L Normal 15-41 [facility] Bilirubin [Mass/Vol] 0.3 mg/dL Normal 0.3-1.2 [facility] Bun/CretRatio 20.2 Normal [facility] Calcium [Mass/Vol] 9.1 mg/dL Normal 8.1-10.1 [facility] Chloride [Moles/Vol] 102 mmol/L Normal 98-107 [facility] CO2 [Moles/Vol] 27 mmol/L Normal 22-32 [facility] Creatinine [Mass/Vol] 0.84 mg/dL Normal 0.60-1.30 [facility] Glucose [Mass/Vol] 80 mg/dL Normal 70-100 [facility] Osmolality-Calc 282 mOsm/kg Normal [facility] Potassium [Moles/Vol] 3.9 mmol/L Normal 3.4-5.1 [facility] Protein [Mass/Vol] 7.3 g/dL Normal 6.5-8.1 [facility] Sodium [Moles/Vol] 141 mmol/L Normal 136-144 [facility] Urea nitrogen [Mass/Vol] 17 mg/dL Normal 8-26 [facility] LDL Calculatedon 08-08-2018 Cholesterol in LDL [Mass/Vol] 144 mg/dL Normal [facility] Comment on above: Result Comment: Calculated LDL is unreliable when Triglyceride result is greater than 400. ZLipidon 08-08-2018 Cholesterol [Mass/Vol] 237 mg/dL High 0-200 [facility] Cholesterol in HDL [Mass/Vol] 49 mg/dL Normal [facility] Triglyceride [Mass/Vol] 222 mg/dL High 0-149 [facility] Vital Signs Date Time Vital Sign Value Performing Clinician Facility 11-13-2024 23:09-0400 Body temperature 98 [degF] Dr. Mandeep Houser DO Work Phone: [facility] 11-13-2024 23:09-0400 Diastolic blood pressure 63 mm[Hg] Dr. Mandeep Houser DO Work Phone: [facility] 11-13-2024 23:09-0400 Heart rate 65 /min Dr. Mandeep Houser DO Work Phone: [facility] 11-13-2024 23:09-0400 Respiratory rate 17 /min Dr. Mandeep Houser DO Work Phone: [facility] 11-13-2024 23:09-0400 SaO2% (BldA) [Mass fraction] 100 % Dr. Mandeep Houser DO Work Phone: [facility] 11-13-2024 23:09-0400 Systolic blood pressure 101 mm[Hg] Dr. Mandeep Houser DO Work Phone: [facility] 11-13-2024 17:55-0400 Body height 160.[address] Mandeep Houser DO Work Phone: [facility] 11-13-2024 17:55-0400 Body mass index (BMI) [Ratio] 35.3 kg/m2 Dr. Mandeep Houser DO Work Phone: [facility] 11-13-2024 17:55-0400 Body weight 90.[address] Mandeep Houser DO Work Phone: [facility] 11-03-2024 15:12-0400 Body height 162.6 cm Morenita Hill APRN.CNP Work Phone: [facility] 11-03-2024 15:12-0400 Body mass index (BMI) [Ratio] 32.62 kg/m2 Morenita Hill BUSINESS STRATEGY MANAGER.STRATEGIC BUYER Work Phone: [facility] 11-03-2024 15:12-0400 Body weight 86.2 kg Morenita Hill BUSINESS STRATEGY MANAGER.STRATEGIC BUYER Work Phone: [facility] 11-03-2024 15:12-0400 Diastolic blood pressure 71 mm[Hg] Morenita Hill BUSINESS STRATEGY MANAGER.STRATEGIC BUYER Work Phone: [facility] 11-03-2024 15:12-0400 Heart rate 70 /min Morenita Hill BUSINESS STRATEGY MANAGER.STRATEGIC BUYER Work Phone: [facility] 11-03-2024 15:12-0400 SaO2% (BldA) [Mass fraction] 93 % Morenita Hill BUSINESS STRATEGY MANAGER.STRATEGIC BUYER Work Phone: [facility] 11-03-2024 15:12-0400 Systolic blood pressure 119 mm[Hg] Morenita Hill BUSINESS STRATEGY MANAGER.STRATEGIC BUYER Work Phone: [facility] 11-03-2024 14:05-0400 Body height 162.6 cm Pili Wells MD Work Phone: [facility] 11-03-2024 14:05-0400 Body mass index (BMI) [Ratio] 33.34 kg/m2 Pili Wells MD Work Phone: [facility] 11-03-2024 14:05-0400 Body weight 88.1 kg Pili Wells MD Work Phone: [facility] 11-03-2024 14:05-0400 Diastolic blood pressure 85 mm[Hg] Pili Wells MD Work Phone: [facility] 11-03-2024 14:05-0400 Heart rate 67 /min Pili Wells MD Work Phone: [facility] 11-03-2024 14:05-0400 Systolic blood pressure 126 mm[Hg] Pili Wells MD Work Phone: [facility] 07-21-2024 15:55-0400 Body mass index (BMI) [Ratio] 34.19 kg/m2 Mandeep Houser DO Work Phone: [facility] 07-21-2024 15:55-0400 Body temperature 97 [degF] Mandeep Houser DO Work Phone: [facility] 07-21-2024 15:55-0400 Body weight 87.54 kg Mandeep Houser DO Work Phone: [facility] 07-21-2024 15:55-0400 Diastolic blood pressure 82 mm[Hg] Mandeep Houser DO Work Phone: [facility] 07-21-2024 15:55-0400 Heart rate 76 /min Mandeep Hosuer DO Work Phone: [facility] 07-21-2024 15:55-0400 Respiratory rate 20 /min Mandeep Houser DO Work Phone: [facility] 07-21-2024 15:55-0400 Systolic blood pressure 146 mm[Hg] Mandeep Houser DO Work Phone: [facility] 07-08-2024 14:47-0500 Body mass index (BMI) [Ratio] 32.59 kg/m2 Mandeep Houser DO Work Phone: [facility] 07-08-2024 14:47-0500 Body weight 83.46 kg Mandeep Houser DO Work Phone: [facility] 07-08-2024 14:47-0500 Diastolic blood pressure 70 mm[Hg] Mandeep Houser DO Work Phone: [facility] 07-08-2024 14:47-0500 Heart rate 66 /min Mandeep Houser DO Work Phone: [facility] 07-08-2024 14:47-0500 SaO2% (BldA) [Mass fraction] 96 % Mandeep Houser DO Work Phone: [facility] 07-08-2024 14:47-0500 Systolic blood pressure 110 mm[Hg] Mandeep Houser DO Work Phone: [facility] 02-07-2024 14:13-0400 Body mass index (BMI) [Ratio] 34.84 kg/m2 Angel Mesa DO Work Phone: [facility] 02-07-2024 14:13-0400 Body weight 89.2 kg Angel Mesa DO Work Phone: [facility] 02-07-2024 14:13-0400 Diastolic blood pressure 78 mm[Hg] Angel Mesa DO Work Phone: [facility] 02-07-2024 14:13-0400 Heart rate 83 /min Angel Mesa DO Work Phone: [facility] 02-07-2024 14:13-0400 SaO2% (BldA) [Mass fraction] 95 % Angel Mesa DO Work Phone: [facility] 02-07-2024 14:13-0400 Systolic blood pressure 132 mm[Hg] Angel Mesa DO Work Phone: [facility] 01-15-2024 12:54-0400 Diastolic blood pressure 67 mm[Hg] Pili Wells MD Work Phone: [facility] 01-15-2024 12:54-0400 Heart rate 65 /min Pili Wells MD Work Phone: [facility] 01-15-2024 12:54-0400 Systolic blood pressure 104 mm[Hg] Pili Wells MD Work Phone: [facility] 01-15-2024 12:48-0400 Body mass index (BMI) [Ratio] 34.44 kg/m2 Pili Wells MD Work Phone: [facility] 01-15-2024 12:48-0400 Body weight 88.2 kg Pili Wells MD Work Phone: [facility] 01-15-2024 12:48-0400 SaO2% (BldA) [Mass fraction] 96 % Pili Wells MD Work Phone: [facility] Comment on above: 11-01-2023 09:13-0400 Body height 160 cm Mercedes Vera BUSINESS STRATEGY MANAGER.STRATEGIC BUYER Work Phone: [facility] 11-01-2023 09:13-0400 Body mass index (BMI) [Ratio] 34.01 kg/m2 Mercedes Vera BUSINESS STRATEGY MANAGER.STRATEGIC BUYER Work Phone: [facility] 11-01-2023 09:13-0400 Body weight 87.09 kg Mercedes Vera BUSINESS STRATEGY MANAGER.STRATEGIC BUYER Work Phone: [facility] 11-01-2023 09:13-0400 Diastolic blood pressure 79 mm[Hg] Mercedes Vera BUSINESS STRATEGY MANAGER.STRATEGIC BUYER Work Phone: [facility] 11-01-2023 09:13-0400 Heart rate 68 /min Mercedes Vera BUSINESS STRATEGY MANAGER.STRATEGIC BUYER Work Phone: [facility] 11-01-2023 09:13-0400 Systolic blood pressure 125 mm[Hg] Mercedes Vera BUSINESS STRATEGY MANAGER.STRATEGIC BUYER Work Phone: [facility] 10-31-2023 15:08-0400 Body mass index (BMI) [Ratio] 34.37 kg/m2 Mandeep Houser DO Work Phone: [facility] 10-31-2023 15:08-0400 Body temperature 96.4 [degF] Mandeep Houser DO Work Phone: [facility] 10-31-2023 15:08-0400 Body weight 88 kg Mandeep Houser DO Work Phone: [facility] 10-31-2023 15:08-0400 Diastolic blood pressure 80 mm[Hg] Mandeep Houser DO Work Phone: [facility] 10-31-2023 15:08-0400 Heart rate 76 /min Mandeep Houser DO Work Phone: [facility] 10-31-2023 15:08-0400 Respiratory rate 20 /min Mandeep Houser DO Work Phone: [facility] 10-31-2023 15:08-0400 Systolic blood pressure 150 mm[Hg] Mandeep Houser DO Work Phone: [facility] 10-15-2023 11:41-0400 Body mass index (BMI) [Ratio] 34.4 kg/m2 Rupali Nascimento BUSINESS STRATEGY MANAGER.STRATEGIC BUYER Work Phone: [facility] 10-15-2023 11:41-0400 Body weight 88.09 kg Rupali Nascimento BUSINESS STRATEGY MANAGER.STRATEGIC BUYER Work Phone: [facility] 10-15-2023 11:41-0400 Diastolic blood pressure 68 mm[Hg] Rupali Nascimento BUSINESS STRATEGY MANAGER.STRATEGIC BUYER Work Phone: [facility] 10-15-2023 11:41-0400 Heart rate 68 /min Rupali Nascimento BUSINESS STRATEGY MANAGER.STRATEGIC BUYER Work Phone: [facility] 10-15-2023 11:41-0400 Respiratory rate 14 /min Rupali Nascimento BUSINESS STRATEGY MANAGER.STRATEGIC BUYER Work Phone: [facility] 10-15-2023 11:41-0400 SaO2% (BldA) [Mass fraction] 94 % Rupali Nascimento BUSINESS STRATEGY MANAGER.STRATEGIC BUYER Work Phone: [facility] 10-15-2023 11:41-0400 Systolic blood pressure 130 mm[Hg] Rupali Nascimento BUSINESS STRATEGY MANAGER.STRATEGIC BUYER Work Phone: [facility] 10-01-2023 12:22-0400 Body mass index (BMI) [Ratio] 34.15 kg/m2 Alejandrina Yasir BUSINESS STRATEGY MANAGER.STRATEGIC BUYER Work Phone: [facility] 10-01-2023 12:22-0400 Body temperature 97.11 [degF] Alejandrina Yasir BUSINESS STRATEGY MANAGER.STRATEGIC BUYER Work Phone: [facility] 10-01-2023 12:22-0400 Body weight 87.45 kg Alejandrina Yasir BUSINESS STRATEGY MANAGER.STRATEGIC BUYER Work Phone: [facility] 10-01-2023 12:22-0400 Diastolic blood pressure 84 mm[Hg] Alejandrina Yasir BUSINESS STRATEGY MANAGER.STRATEGIC BUYER Work Phone: [facility] 10-01-2023 12:22-0400 Heart rate 80 /min Alejandrina Yasir BUSINESS STRATEGY MANAGER.STRATEGIC BUYER Work Phone: [facility] 10-01-2023 12:22-0400 Respiratory rate 16 /min Alejandrina Yasir BUSINESS STRATEGY MANAGER.STRATEGIC BUYER Work Phone: [facility] 10-01-2023 12:22-0400 SaO2% (BldA) [Mass fraction] 95 % Alejandrina Yasir BUSINESS STRATEGY MANAGER.STRATEGIC BUYER Work Phone: [facility] 10-01-2023 12:22-0400 Systolic blood pressure 118 mm[Hg] Alejandrina Yasir BUSINESS STRATEGY MANAGER.STRATEGIC BUYER Work Phone: [facility] 09-13-2023 11:04-0400 Body mass index (BMI) [Ratio] 34.12 kg/m2 Alejandrina Yasir BUSINESS STRATEGY MANAGER.STRATEGIC BUYER Work Phone: [facility] 09-13-2023 11:04-0400 Body weight 87.36 kg Alejandrina Yasir BUSINESS STRATEGY MANAGER.STRATEGIC BUYER Work Phone: [facility] 09-13-2023 11:04-0400 Diastolic blood pressure 80 mm[Hg] Alejandrina Yasir BUSINESS STRATEGY MANAGER.STRATEGIC BUYER Work Phone: [facility] 09-13-2023 11:04-0400 Heart rate 73 /min Alejandrina Yasir BUSINESS STRATEGY MANAGER.STRATEGIC BUYER Work Phone: [facility] 09-13-2023 11:04-0400 Respiratory rate 16 /min Alejandrina Yasir BUSINESS STRATEGY MANAGER.STRATEGIC BUYER Work Phone: [facility] 09-13-2023 11:04-0400 SaO2% (BldA) [Mass fraction] 94 % Alejandrina Yasir BUSINESS STRATEGY MANAGER.STRATEGIC BUYER Work Phone: [facility] 09-13-2023 11:04-0400 Systolic blood pressure 122 mm[Hg] Alejandrina Yasir BUSINESS STRATEGY MANAGER.STRATEGIC BUYER Work Phone: [facility] 09-05-2023 10:51-0400 Body height 160 cm Thuy Aguirre APRN.STRATEGIC BUYER Work Phone: [facility] 09-05-2023 10:51-0400 Body mass index (BMI) [Ratio] 34.05 kg/m2 Thuy Aguirre BUSINESS STRATEGY MANAGER.STRATEGIC BUYER Work Phone: [facility] 09-05-2023 10:51-0400 Body weight 87.2 kg Thuy Aguirre BUSINESS STRATEGY MANAGER.STRATEGIC BUYER Work Phone: [facility] 09-05-2023 10:51-0400 Diastolic blood pressure 84 mm[Hg] Thuy Aguirre BUSINESS STRATEGY MANAGER.STRATEGIC BUYER Work Phone: [facility] 09-05-2023 10:51-0400 Heart rate 84 /min Thuy Aguirre BUSINESS STRATEGY MANAGER.STRATEGIC BUYER Work Phone: [facility] 09-05-2023 10:51-0400 SaO2% (BldA) [Mass fraction] 97 % Thuy Aguirre BUSINESS STRATEGY MANAGER.STRATEGIC BUYER Work Phone: [facility] 09-05-2023 10:51-0400 Systolic blood pressure 128 mm[Hg] Thuy Aguirre BUSINESS STRATEGY MANAGER.STRATEGIC BUYER Work Phone: [facility] 08-29-2023 15:37-0400 Body mass index (BMI) [Ratio] 33.6 kg/m2 [facility] 08-29-2023 15:17-0400 Body height 160.02 cm [facility] 08-29-2023 15:17-0400 Body weight 86.18 kg [facility] 08-29-2023 14:28-0400 Diastolic blood pressure 82 mm[Hg] [facility] 08-29-2023 14:28-0400 Heart rate 91 /min [facility] 08-29-2023 14:28-0400 SaO2% (BldA) [Mass fraction] 95 % [facility] 08-29-2023 14:28-0400 Systolic blood pressure 125 mm[Hg] [facility] 08-22-2023 10:27-0400 Body temperature 96.91 [degF] Alejandrina Harvey BUSINESS STRATEGY MANAGER.STRATEGIC BUYER Work Phone: [facility] 08-22-2023 10:27-0400 Body weight 87 kg Alejandrina Waldenman BUSINESS STRATEGY MANAGER.STRATEGIC BUYER Work Phone: [facility] 08-22-2023 10:27-0400 Diastolic blood pressure 84 mm[Hg] Alejandrina Waldenman BUSINESS STRATEGY MANAGER.STRATEGIC BUYER Work Phone: [facility] 08-22-2023 10:27-0400 Heart rate 76 /min Alejandrina Waldenman BUSINESS STRATEGY MANAGER.STRATEGIC BUYER Work Phone: [facility] 08-22-2023 10:27-0400 SaO2% (BldA) [Mass fraction] 95 % Alejandrina Waldenman BUSINESS STRATEGY MANAGER.STRATEGIC BUYER Work Phone: [facility] 08-22-2023 10:27-0400 Systolic blood pressure 122 mm[Hg] Alejandrina Waldenman BUSINESS STRATEGY MANAGER.STRATEGIC BUYER Work Phone: [facility] 08-07-2023 14:44-0400 Body height 160 cm Dilcia Bonilla MD Work Phone: [facility] 08-07-2023 14:44-0400 Body weight 86.59 kg Dilcia Bonilla MD Work Phone: [facility] 08-07-2023 14:44-0400 Diastolic blood pressure 82 mm[Hg] Dilcia Bonilla MD Work Phone: [facility] 08-07-2023 14:44-0400 Heart rate 91 /min Dilcia Bonilla MD Work Phone: [facility] 08-07-2023 14:44-0400 SaO2% (BldA) [Mass fraction] 95 % Dilcia Bonilla MD Work Phone: [facility] 08-07-2023 14:44-0400 Systolic blood pressure 125 mm[Hg] Dilcia Bonilla MD Work Phone: [facility] 07-24-2023 13:42-0400 Body temperature 97 [degF] Mandeep Houser DO Work Phone: [facility] 07-24-2023 13:42-0400 Body weight 87.54 kg Mandeep Houser DO Work Phone: [facility] 07-24-2023 13:42-0400 Diastolic blood pressure 80 mm[Hg] Mandeep Houser DO Work Phone: [facility] 07-24-2023 13:42-0400 Heart rate 80 /min Mandeep Houser DO Work Phone: [facility] 07-24-2023 13:42-0400 Respiratory rate 20 /min Mandeep Houser DO Work Phone: [facility] 07-24-2023 13:42-0400 Systolic blood pressure 120 mm[Hg] Mandeep Houser DO Work Phone: [facility] 10-14-2022 14:12-0400 Body temperature 99.81 [degF] Shanell Older BUSINESS STRATEGY MANAGER.STRATEGIC BUYER Work Phone: [facility] 10-14-2022 14:12-0400 Body weight 88.91 kg Shanell Older BUSINESS STRATEGY MANAGER.STRATEGIC BUYER Work Phone: [facility] 10-14-2022 14:12-0400 Diastolic blood pressure 78 mm[Hg] Shanell Older BUSINESS STRATEGY MANAGER.STRATEGIC BUYER Work Phone: [facility] 10-14-2022 14:12-0400 Heart rate 87 /min Shanell Older BUSINESS STRATEGY MANAGER.STRATEGIC BUYER Work Phone: [facility] 10-14-2022 14:12-0400 Respiratory rate 22 /min Shanell Older BUSINESS STRATEGY MANAGER.STRATEGIC BUYER Work Phone: [facility] 10-14-2022 14:12-0400 SaO2% (BldA) [Mass fraction] 94 % Shanell Older BUSINESS STRATEGY MANAGER.STRATEGIC BUYER Work Phone: [facility] 10-14-2022 14:12-0400 Systolic blood pressure 104 mm[Hg] Shanell Older BUSINESS STRATEGY MANAGER.STRATEGIC BUYER Work Phone: [facility] 08-14-2022 11:20-0400 Body weight 87.09 kg Santo Oneill MD Work Phone: [facility] 08-14-2022 11:20-0400 Diastolic blood pressure 70 mm[Hg] Santo Oneill MD Work Phone: [facility] 08-14-2022 11:20-0400 Heart rate 87 /min Santo Oneill MD Work Phone: [facility] 08-14-2022 11:20-0400 SaO2% (BldA) [Mass fraction] 94 % Santo Oneill MD Work Phone: [facility] 08-14-2022 11:20-0400 Systolic blood pressure 110 mm[Hg] Santo Oneill MD Work Phone: [facility] 07-21-2022 10:44-0500 Body weight 89.54 kg Alejandrina Yasir BUSINESS STRATEGY MANAGER.STRATEGIC BUYER Work Phone: [facility] 07-21-2022 10:44-0500 Diastolic blood pressure 78 mm[Hg] Alejandrina Yasir BUSINESS STRATEGY MANAGER.STRATEGIC BUYER Work Phone: [facility] 07-21-2022 10:44-0500 Heart rate 64 /min Alejandrina Yasir BUSINESS STRATEGY MANAGER.STRATEGIC BUYER Work Phone: [facility] 07-21-2022 10:44-0500 SaO2% (BldA) [Mass fraction] 93 % Alejandrina Yasir BUSINESS STRATEGY MANAGER.STRATEGIC BUYER Work Phone: [facility] 07-21-2022 10:44-0500 Systolic blood pressure 130 mm[Hg] Alejandrina Yasir BUSINESS STRATEGY MANAGER.STRATEGIC BUYER Work Phone: [facility] 02-13-2022 11:07-0400 Body height 162.6 cm Santo Oneill MD Work Phone: [facility] 02-13-2022 11:07-0400 Body weight 89.09 kg Santo Oneill MD Work Phone: [facility] 02-13-2022 11:07-0400 Diastolic blood pressure 84 mm[Hg] Santo Oneill MD Work Phone: [facility] 02-13-2022 11:07-0400 Heart rate 80 /min Santo Oneill MD Work Phone: [facility] 02-13-2022 11:07-0400 Systolic blood pressure 136 mm[Hg] Santo Oneill MD Work Phone: [facility] 01-20-2022 10:46-0400 Body weight 87.91 kg Alejandrina Yasir BUSINESS STRATEGY MANAGER.STRATEGIC BUYER Work Phone: [facility] 01-20-2022 10:46-0400 Diastolic blood pressure 78 mm[Hg] Alejandrina Yasir BUSINESS STRATEGY MANAGER.STRATEGIC BUYER Work Phone: [facility] 01-20-2022 10:46-0400 Heart rate 79 /min Alejandrina Yasir BUSINESS STRATEGY MANAGER.STRATEGIC BUYER Work Phone: [facility] 01-20-2022 10:46-0400 SaO2% (BldA) [Mass fraction] 95 % Alejandrina Yasir BUSINESS STRATEGY MANAGER.STRATEGIC BUYER Work Phone: [facility] 01-20-2022 10:46-0400 Systolic blood pressure 124 mm[Hg] Alejandrina Yasir BUSINESS STRATEGY MANAGER.STRATEGIC BUYER Work Phone: [facility] 12-19-2021 09:10-0400 Body temperature 97.2 [degF] Sincere Yaphank PA-C Work Phone: [facility] 12-19-2021 09:10-0400 Diastolic blood pressure 70 mm[Hg] Sincere Maddie PA-C Work Phone: [facility] 12-19-2021 09:10-0400 Heart rate 76 /min Sincere Maddie PA-C Work Phone: [facility] 12-19-2021 09:10-0400 SaO2% (BldA) [Mass fraction] 92 % Sincere Maddie PA-C Work Phone: [facility] 12-19-2021 09:10-0400 Systolic blood pressure 128 mm[Hg] Sincere Yaphank PA-C Work Phone: [facility] 12-05-2021 10:53-0400 Body temperature 98.2 [degF] Wes Marshall MD Work Phone: [facility] 12-05-2021 10:53-0400 Heart rate 60 /min Wes Marshall MD Work Phone: [facility] 12-05-2021 10:53-0400 Respiratory rate 8 /min Wes Marshall MD Work Phone: [facility] 12-05-2021 10:53-0400 SaO2% (BldA) [Mass fraction] 98 % Wes Marshall MD Work Phone: [facility] 12-05-2021 10:45-0400 Diastolic blood pressure 70 mm[Hg] Wes Marshall MD Work Phone: [facility] 12-05-2021 10:45-0400 Systolic blood pressure 135 mm[Hg] Wes Marshall MD Work Phone: [facility] 11-02-2021 13:29-0400 Body height 162.6 cm Sincere Maddie PA-C Work Phone: [facility] 11-02-2021 13:29-0400 Body temperature 97.3 [degF] Sincere Maddie PA-C Work Phone: [facility] 11-02-2021 13:29-0400 Body weight 86.64 kg Sincere Yaphank PA-C Work Phone: [facility] 11-02-2021 13:29-0400 Diastolic blood pressure 62 mm[Hg] Sincere Maddie PA-C Work Phone: [facility] 11-02-2021 13:29-0400 Heart rate 80 /min Sincere Yaphank PA-C Work Phone: [facility] 11-02-2021 13:29-0400 SaO2% (BldA) [Mass fraction] 94 % Sincere Yaphank PA-C Work Phone: [facility] 11-02-2021 13:29-0400 Systolic blood pressure 118 mm[Hg] Sincere Perkins PA-C Work Phone: [facility] 10-19-2021 11:38-0400 Body weight 86.73 kg Alejandrina Yasir BUSINESS STRATEGY MANAGER.STRATEGIC BUYER Work Phone: [facility] 10-19-2021 11:38-0400 Diastolic blood pressure 92 mm[Hg] Alejandrina Yasir BUSINESS STRATEGY MANAGER.STRATEGIC BUYER Work Phone: [facility] 10-19-2021 11:38-0400 Heart rate 79 /min Alejandrina Yasir BUSINESS STRATEGY MANAGER.STRATEGIC BUYER Work Phone: [facility] 10-19-2021 11:38-0400 Respiratory rate 16 /min Alejandrina Yasir BUSINESS STRATEGY MANAGER.STRATEGIC BUYER Work Phone: [facility] 10-19-2021 11:38-0400 SaO2% (BldA) [Mass fraction] 96 % Alejandrina Yasir BUSINESS STRATEGY MANAGER.STRATEGIC BUYER Work Phone: [facility] 10-19-2021 11:38-0400 Systolic blood pressure 132 mm[Hg] Alejandrina Yasir BUSINESS STRATEGY MANAGER.STRATEGIC BUYER Work Phone: [facility] 09-01-2021 15:38-0400 Body height 160 cm Alejandrina Yasir BUSINESS STRATEGY MANAGER.STRATEGIC BUYER Work Phone: [facility] 09-01-2021 15:38-0400 Body weight 88.45 kg Alejandrina Yasir BUSINESS STRATEGY MANAGER.STRATEGIC BUYER Work Phone: [facility] 09-01-2021 15:38-0400 Diastolic blood pressure 90 mm[Hg] Alejandrina Yasir BUSINESS STRATEGY MANAGER.STRATEGIC BUYER Work Phone: [facility] 09-01-2021 15:38-0400 Heart rate 69 /min Alejandrina Yasir BUSINESS STRATEGY MANAGER.STRATEGIC BUYER Work Phone: [facility] 09-01-2021 15:38-0400 SaO2% (BldA) [Mass fraction] 96 % Alejandrina Yasir BUSINESS STRATEGY MANAGER.STRATEGIC BUYER Work Phone: [facility] 09-01-2021 15:38-0400 Systolic blood pressure 146 mm[Hg] Alejandrina Harvey APRN.STRATEGIC BUYER Work Phone: [facility] 02-24-2020 12:13-0400 BMI (Body Mass Index) 34.9 kg/m2 [employer] [facility] Work Phone: 02-24-2020 12:13-0400 Body weight 89.36 kg Mane Solis [facility] Work Phone: 02-24-2020 12:13-0400 BP Diastolic 80 mm[Hg] Mane Solis [facility] Elvie Work Phone: 02-24-2020 12:13-0400 BP Systolic 160 mm[Hg] [facility] [facility] Work Phone: 02-24-2020 12:13-0400 BSA (Body Surface Area) 1.92 m2 [facility] [facility] Work Phone: 02-04-2020 16:16-0400 BMI (Body Mass Index) 35.43 kg/m2 Rafael Frank III [employer] [facility] Jareth Work Phone: 02-04-2020 16:16-0400 Body weight 90.72 kg Rafael Frank III [employer] [facility] Work Phone: 02-04-2020 16:16-0400 BP Diastolic 78 mm[Hg] Rafael Frank III [facility] Jareth Work Phone: 02-04-2020 16:16-0400 BP Systolic 154 mm[Hg] Rafael Frank [facility] Work Phone: 02-04-2020 16:16-0400 BSA (Body Surface Area) 1.93 m2 Rafael Frank III [employer] [facility] Work Phone: 02-04-2020 16:16-0400 Height 160.02 [...] BP Diastolic 92 mm[Hg] Rafael Frank III [employer] Management[employer]onia Templeton Work Phone: 01-28-2020 15:21-0400 BP Systolic 132 mm[Hg] Rafael Frank III [employer] Management[employer] Templeton Work Phone: 01-28-2020 15:21-0400 BSA (Body Surface Area) 1.93 m2 Rafael Templeton Work Phone: 01-28-2020 15:21-0400 Height 160.02 cm Rafael Frank III [employer] Management[employer] Templeton Work Phone: 01-22-2020 12:56-0400 BMI (Body Mass Index) 35.04 kg/m2 Rafael Templeton Work Phone: 01-22-2020 12:56-0400 Body weight 89.72 kg Rafael Frank III [employer] Management[employer]onia Templeton Work Phone: 01-22-2020 12:56-0400 BP Diastolic 84 mm[Hg] Rafael Frank III [employer] ManagementSonia Templeton Work Phone: 01-22-2020 12:56-0400 BP Systolic 118 mm[Hg] Rafael Frank III [employer] Management[employer]onia Templeton Work Phone: 01-22-2020 12:56-0400 BSA (Body Surface Area) 1.92 m2 Rafael Templeton Work Phone: 01-22-2020 12:56-0400 Height 160.02 cm Rafael Templeton Work Phone: 01-22-2020 12:56-0400 Pulse (Heart Rate) 75 /min Rafael MendenhallNV TISHA Templeton Work Phone: 01-22-2020 12:56-0400 Respiratory Rate 16 /min Rafael Templeton Work Phone: Encounters Encounter Date Encounter Type Care Provider Facility Start: 11-13-2024 End: 11-13-2024 Emergency department patient visit Dr. Mandeep Houser DO Work Phone: -Emergency Department Work Phone: Start: 11-05-2024 End: 11-05-2024 ambulatory Chasidy Lyn MA bookjam Start: 11-05-2024 End: 11-05-2024 Patient encounter procedure Chasidy Lyn MA bookjam Comment on above: Population Health Na vigation Outreach ([facility] Start: 11-03-2024 End: 11-03-2024 Office outpatient visit 25 minutes Pili Wells MD Work Phone: Cardiology Comment on above: Chronic systolic con gestive heart failure (HCC) (Primary Dx); Nonischemic cardiomyopathy (HCC); Coronary artery disease involving [place] coronary artery of [place] heart without angina pectoris; Left bundle branch block; Cardiac resynchronization therapy defibrillator (AUTOMATION TECH-D) in place Start: 11-03-2024 End: 11-03-2024 Patient encounter procedure Holter/Event Monitor Edenilson Work Phone: Cardiology Comment on above: Cardiac resynchroniz ation therapy defibrillator (AUTOMATION TECH-D) in place (Primary Dx) Cardiac resynchroniz ation therapy defibrillator (AUTOMATION TECH-D) in place (Primary Dx); Chronic HFrEF (heart failure with reduced ejection fraction) ([facility]); Medication management Start: 11-03-2024 End: 11-03-2024 ambulatory MANDEEP ALFARORISON Facility:[facility] Start: 11-03-2024 End: 11-03-2024 ambulatory MANDEEP HOUSER Facility:[facility] Start: 10-21-2024 End: 10-21-2024 Patient encounter procedure Mandeep Houser DO Work Phone: [facility] Comment on above: Chronic bilateral th oracic back pain (Primary Dx); Somatic dysfunction of spine, lumbar; Somatic dysfunction of rib; Somatic dysfunction of head region; Somatic dysfunction of spine, cervical; Somatic dysfunction of spine, thoracic Start: 10-21-2024 End: 10-21-2024 ambulatory MANDEEP ALFARORISON Facility:[facility] Start: 09-30-2024 End: 09-30-2024 ambulatory MANDEEP ALFARORISON Facility:[facility] Start: 09-23-2024 End: 09-23-2024 ambulatory MANDEEP ALFARORISON Facility:[facility] Start: 09-15-2024 End: 09-15-2024 [facility] [place] Start: 09-15-2024 End: 09-15-2024 Patient encounter procedure Dorinda Young MA [facility] [place] Comment on above: Population Health Na vigation Outreach (ACO, High Risk /) Start: 08-27-2024 End: 08-27-2024 Telephone encounter Dilcia Bonilla MD Work Phone: Cardiology Start: 08-25-2024 End: 08-25-2024 ambulatory MANDEEP HOUSER Facility:[facility] Start: 08-25-2024 End: 08-25-2024 Patient encounter [...] Start: 08-15-2024 End: 08-15-2024 ambulatory MANDEEP ALFARORISON Facility:[facility] Start: 08-04-2024 End: 08-04-2024 ambulatory MANDEEP HOUSER Facility:[facility] Start: 08-04-2024 End: 08-04-2024 Patient encounter procedure Mandeep Houser DO Work Phone: Family [facility] Comment on above: Chronic bilateral th oracic back pain (Primary Dx); Somatic dysfunction of rib; Somatic dysfunction of spine, thoracic; Somatic dysfunction of spine, cervical; Somatic dysfunction of head region; Somatic dysfunction of pelvic region Start: 07-21-2024 End: 07-21-2024 ambulatory MANDEEP ALFARORISON Facility:[facility] Start: 07-21-2024 End: 07-21-2024 Patient encounter procedure Mandeep Houser DO Work Phone: [facility] Comment on above: Acute cough (Primary Dx); Vitamin B12 deficiency; Fatigue, unspecified type; Nausea; Hypothyroidism, acquired; Chronic 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); Vitamin D deficiency Start: 07-08-2024 End: 07-08-2024 Subsequent hospital visit by physician [facility] Work Phone: Radiology Comment on above: Acute cough [R05.1] Start: 07-08-2024 End: 07-08-2024 ambulatory MANDEEP HOUSER Facility:[facility] Start: 07-08-2024 End: 07-08-2024 Patient encounter procedure Mandeep Houser DO Work Phone: [facility] Comment on above: Vitamin B12 deficien cy (Primary Dx); Fatigue, unspecified type; Lightheadedness; Acute cough; Chronic 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); Nausea; Hypothyroidism, acquired; Anemia, unspecified type; Vitamin D deficiency; Nonischemic cardiomyopathy (HCC) Start: 07-01-2024 End: 08-01-2024 Telephone encounter Mandeep Elsi Houser DO Work Phone: [facility] Start: 06-20-2024 End: 06-20-2024 ambulatory MANDEEP ALFARORISON Facility:[facility] Start: 06-20-2024 End: 06-20-2024 Patient encounter procedure Mandeep Alfarorison DO Work Phone: [facility] Comment on above: Chronic bilateral th oracic back pain (Primary Dx); Somatic dysfunction of rib; Somatic dysfunction of head region; Somatic dysfunction of spine, thoracic; Somatic dysfunction of spine, lumbar; Somatic dysfunction of spine, cervical; Somatic dysfunction of pelvic region Start: 05-30-2024 End: 05-30-2024 Patient encounter procedure Mandeep Alfarorison DO Work Phone: [facility] [place] Comment on above: Chronic bilateral th oracic back pain (Primary Dx); Somatic dysfunction of rib; Somatic dysfunction of spine, lumbar; Somatic dysfunction of spine, thoracic; Somatic dysfunction of spine, cervical; Somatic dysfunction of pelvic region; Somatic dysfunction of head region Start: 05-30-2024 End: 05-30-2024 ambulatory MANDEEP HOUSER Facility:[facility] Start: 05-12-2024 End: 05-12-2024 Patient encounter procedure Mandeep Elsi AlfaroHouser DO Work Phone: [facility] Comment on above: Chronic bilateral th oracic back pain (Primary Dx); Somatic dysfunction of rib; Somatic dysfunction of spine, thoracic; Somatic dysfunction of spine, cervical; Somatic dysfunction of head region; Somatic dysfunction of spine, lumbar Start: 05-12-2024 End: 05-12-2024 ambulatory MANDEEP HOUSER Facility:[facility] Start: 04-22-2024 End: 04-22-2024 ambulatory MANDEEP HOUSER Facility:[facility] Start: 04-22-2024 End: 04-22-2024 Patient encounter procedure Mandeep Elsi AlfaroHouser DO Work Phone: [facility] Comment on above: Suprapubic pain (Richi maritza Dx); Somatic dysfunction of head region; Chronic bilateral thoracic back pain; Somatic dysfunction of rib; Somatic dysfunction of spine, cervical; Somatic dysfunction of spine, thoracic; Somatic dysfunction of pelvic region; Somatic dysfunction of spine, lumbar Start: 04-22-2024 End: 04-22-2024 ambulatory MANDEEP HOUSER Facility:[facility] Start: 04-08-2024 End: 04-08-2024 Refill Mandeep L Houser DO Work Phone: [facility] Comment on above: Refill Request Start: 03-27-2024 End: 03-27-2024 Emergency department patient visit Mandeep Houser Facility:[facility] Start: 03-21-2024 End: 03-24-2024 Telephone encounter Mandeep Houser DO Work Phone: [facility] Comment on above: Medication Problem Start: 03-18-2024 End: 03-18-2024 ambulatory MANDEEP HOUSER Facility:[facility] Start: 03-05-2024 End: 03-06-2024 Telephone encounter Mandeep Houser DO Work Phone: [facility] Start: 02-12-2024 End: 02-12-2024 Patient encounter procedure Mandeep Houser DO Work Phone: [facility] Comment on above: Hypothyroidism, acqu ired (Primary Dx); Chronic bilateral thoracic back pain; Somatic dysfunction of rib; Somatic dysfunction of spine, cervical; Somatic dysfunction of spine, thoracic; Somatic dysfunction of spine, lumbar; Somatic dysfunction of head region Start: 02-12-2024 End: 02-12-2024 ambulatory MANDEEP HOUSER Facility:[facility] Start: 02-07-2024 End: 02-07-2024 [facility] Start: 02-07-2024 End: 02-07-2024 Patient encounter procedure Angel Castro DO Work Phone: Cardiology Comment on above: Nonischemic cardiomy opathy (HCC) (Primary Dx) Start: 01-29-2024 End: 01-29-2024 ambulatory MANDEEP HOUSER Facility:[facility] Start: 01-29-2024 End: 01-29-2024 Patient encounter procedure Mandeep Houser DO Work Phone: [facility] Comment on above: Hypothyroidism, acqu ired (Primary Dx); Chronic bilateral thoracic back pain; Somatic dysfunction of spine, thoracic; Somatic dysfunction of spine, cervical; Somatic dysfunction of rib; Somatic dysfunction of spine, lumbar; Somatic dysfunction of head region Start: 01-15-2024 End: 01-15-2024 ambulatory MANDEEP HOUSER Facility:[facility] Start: 01-15-2024 End: 01-15-2024 Office outpatient visit 40 minutes Pili Wells MD Work Phone: Cardiology Comment on above: Chronic systolic con gestive heart failure (HCC) (Primary Dx); Nonischemic cardiomyopathy (HCC); Left bundle branch block; Coronary artery disease involving [place] coronary artery of [place] heart without angina pectoris Start: 01-04-2024 End: 01-04-2024 Patient encounter procedure Mandeep Houser DO Work Phone: [facility] Comment on above: Chronic neck pain (P rimary Dx); Chronic bilateral thoracic back pain; Somatic dysfunction of spine, thoracic; Somatic dysfunction of rib; Somatic dysfunction of spine, cervical; Somatic dysfunction of pelvic region; Somatic dysfunction of head region; Somatic dysfunction of spine, lumbar Start: 01-04-2024 End: 01-04-2024 ambulatory [facility] Facility:[facility] Start: 12-23-2023 ambulatory [facility] Facility:[facility] Start: 12-12-2023 End: 12-12-2023 [facility] Start: 12-12-2023 End: 12-12-2023 Patient encounter procedure Mandeep Houser DO Work Phone: [facility] Comment on above: Chronic bilateral th oracic back pain (Primary Dx); Somatic dysfunction of head region; Somatic dysfunction of spine, cervical; Somatic dysfunction of rib; Somatic dysfunction of spine, thoracic; Somatic dysfunction of pelvic region Start: 12-12-2023 End: 12-12-2023 ambulatory MANDEEP HOUSER Facility:[facility] Start: 12-06-2023 Telephone encounter Pili ricardo MD Work Phone: Cardiology Start: 12-05-2023 End: 12-05-2023 Subsequent hospital visit by physician [facility] Work Phone: Cardiology Lab Comment on above: Chronic systolic con gestive heart failure (HCC) [I50.22] Start: 11-28-2023 Telephone encounter Mandeep ochoa DO Work Phone: NOC Comment on above: Transition Of Care Start: 11-27-2023 End: 11-27-2023 ambulatory AMNDEEP ELDERON Facility:[facility] Start: 11-23-2023 Telephone encounter Rojas Prakash RN NOC Comment on above: Transition Of Care Start: 11-20-2023 Telephone encounter Misty Ascencio RN Cardiology Comment on above: Brand Coordinator - O ther (CHF) Start: 11-15-2023 End: 11-18-[address] [facility] Facility:[facility] Start: 11-12-2023 End: 12-12-2023 ambulatory [facility] Facility:[facility] Start: 11-07-2023 End: 11-07-2023 Patient encounter procedure Mandeep Houser DO Work Phone: [facility] Comment on above: Acute midline low ba ck pain without sciatica (Primary Dx) Start: 11-07-2023 Telephone encounter Mandeep ochoa DO Work Phone: [facility] Comment on above: Appointment; OMT Start: 11-06-2023 Telephone encounter Mandeep ochoa DO Work Phone: [facility] Comment on above: Results (CT Brain) Start: 11-05-2023 End: 11-11-2023 ambulatory [facility] Facility:[facility] Start: 11-01-2023 ambulatory MANDEEP Calzada HOUSER Facil ity:[facility] Start: 11-01-2023 End: 11-01-2023 Subsequent hospital visit by physician [facility] Work Phone: [facility] Comment on above: Word finding difficu lty [R47.89] Start: 11-01-2023 End: 11-01-2023 Patient encounter procedure Mercedes Vera APRN.STRATEGIC BUYER Work Phone: Cardiology Comment on above: Presence of cardiac resynchronization therapy defibrillator (AUTOMATION TECH-D) (Primary Dx); Non-ischemic cardiomyopathy (HCC); LBBB (left bundle branch block) Start: 10-31-2023 End: 10-31-2023 Patient encounter procedure Mandeep Houser DO Work Phone: [facility] Comment on above: Hypothyroidism, acqu ired (Primary [...] Start: 10-17-2023 Telephone encounter Rupali Zak chandra BUSINESS STRATEGY MANAGER.STRATEGIC BUYER Work Phone: [facility] Comment on above: Results Start: 10-15-2023 End: 10-15-2023 Patient encounter procedure Rupali Nascimento MELI.STRATEGIC BUYER Work Phone: [facility] Comment on above: Localized swelling o f left foot (Primary Dx); Foot pain, left; 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 Start: 10-11-2023 End: 10-11-2023 Refill Mandeep Houser DO Work Phone: [facility] Comment on above: Refill Request Left Great Toe Pain Start: 10-10-2023 End: 10-12-2023 ambulatory [facility] Facility:[facility] Start: 10-02-2023 End: 10-02-2023 Office outpatient visit 15 minutes Pili Wells MD Work Phone: Cardiology Comment on above: Chronic systolic con gestive heart failure (HCC) (Primary Dx); Left bundle branch block; Nonischemic cardiomyopathy (HCC); Hypertension with heart disease Start: 10-01-2023 End: 10-01-2023 Patient encounter procedure Alejandrina Harvey APRN.STRATEGIC BUYER Work Phone: [facility] Comment on above: Acute non-recurrent pansinusitis (Primary Dx) Start: 09-30-2023 Telephone encounter Oliverio Del Cid Work Phone: Podiatry Comment on above: Results Start: 09-25-2023 Telephone encounter Thuy Aguirre APRN.STRATEGIC BUYER Work Phone: [place] Provider Adult Comment on above: Results (FLP) Start: 09-24-2023 End: 09-24-2023 Subsequent hospital visit by physician Xr [facility] Work Phone: Radiology Comment on above: Repetitive stress in jury [X50.3XXA] Start: 09-24-2023 End: 09-24-2023 Patient encounter procedure Oliverio Mata Work Phone: Podiatry Comment on above: Repetitive stress in jury (Primary Dx); Venous insufficiency Start: 09-19-2023 Follow-up encounter Dilcia Bonilla MD Work Phone: [facility] Start: 09-19-2023 Patient encounter procedure Dilcia Bonilla MD Work Phone: [facility] Start: 09-17-2023 Telephone encounter Angel Castro DO Work Phone: Cardiology Comment on above: Patient Question (inga dennison) Results Patient Update Start: 09-13-2023 End: 09-13-2023 Subsequent hospital visit by physician Xr [facility] Work Phone: Radiology Comment on above: Foot pain, left [M79 .672] Start: 09-13-2023 End: 09-13-2023 Patient encounter procedure Alejandrina Harvey APRN.STRATEGIC BUYER Work Phone: [facility] Comment on above: Foot pain, left (Richi maritza Dx); Localized swelling of left foot Start: 09-10-2023 End: 09-11-2023 ambulatory [facility] Work Phone: Start: 09-10-2023 End: 09-11-2023 Discharged [facility] Work Phone: Start: 09-06-2023 Encounter for meera l adult medical examination without abnormal findings [facility] Start: 09-05-2023 End: 09-05-2023 Patient encounter procedure Thuy Aguirre APRN.STRATEGIC BUYER Work Phone: Cardiology Comment on above: Chronic systolic con gestive heart failure (HCC) (Primary Dx); Nonischemic cardiomyopathy (HCC); Mixed hyperlipidemia; LBBB (left bundle branch block); Presence of cardiac resynchronization therapy defibrillator (AUTOMATION TECH-D); Primary hypertension; Coronary artery disease involving [place] coronary artery of [place] heart without angina pectoris; Valvular heart disease Start: 09-03-2023 Registered [facility] Work Phone: Start: 08-29-2023 End: 08-29-2023 ambulatory [facility] Work Phone: Start: 08-29-2023 End: 08-29-2023 Patient encounter procedure [facility] Work Phone: Start: 08-29-2023 End: 08-29-2023 ambulatory [facility] Facility:[facility] Start: 08-27-2023 Telephone encounter Alejandrina Johnson APRN.STRATEGIC BUYER Work Phone: [facility] Comment on above: Patient Question; Inga moralesnt Update Start: 08-23-2023 Telephone encounter Pili ricardo MD Work Phone: Cardiology Start: 08-22-2023 End: 08-22-2023 Patient encounter procedure Alejandrina Harvey BUSINESS STRATEGY MANAGER.STRATEGIC BUYER Work Phone: [facility] Comment on above: Vagina, candidiasis (Primary Dx); Burning with urination; 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; Acute cough; Laryngopharyngeal reflux (LPR) Start: 08-07-2023 Follow-up encounter Dilcia Bonilla MD Work Phone: [facility] Start: 08-07-2023 End: 08-07-2023 Patient encounter procedure Dilcia Bonilla MD Work Phone: [facility] Comment on above: LBBB (left bundle br anch block) (Primary Dx); Presence of cardiac resynchronization therapy defibrillator (AUTOMATION TECH-D); Acute on chronic systolic CHF (congestive heart failure) (HCC) Start: 08-06-2023 Telephone encounter Pili ricardo MD Work Phone: Cardiology Start: 07-26-2023 Telephone encounter Dilcia Bonilla MD Work Phone: Cardiology Comment on above: Patient Update Start: 07-25-2023 Telephone encounter Mandeep ochoa DO Work Phone: Family [facility] Comment on above: Results Refill Request Start: 07-24-2023 End: 07-24-2023 Patient encounter procedure Mandeep Houser DO Work Phone: [facility] Comment on above: Chronic diastolic co ngestive heart failure (HCC) (Primary Dx); Hypothyroidism, acquired; Vitamin D deficiency; Fatigue, unspecified type; Acute hypoxic respiratory failure (HCC); Chronic bronchitis, unspecified chronic bronchitis type (HCC); Atrial fibrillation, unspecified type (HCC); SVT (supraventricular tachycardia) (HCC); Homozygous Factor V Leiden mutation (HCC) Start: 07-20-2023 ambulatory Fitz ramirez RN Work Phone: [facility] Start: 07-20-2023 Telephone encounter Mandeep Millard birdieanh DO Work Phone: NOC Comment on above: Follow Up (All Clear ) Transition Of Care ( TCM Initial [facility] Discharge 07/18/23) Start: 07-17-2023 Telephone encounter Morenita Griffin res, APRN.CNP Work Phone: [facility] Adult Comment on above: Appointment Start: 07-13-2023 End: 07-18-2023 Evaluation and management of inpatient MANDEEP HOUSER Facility:[facility] Start: 07-13-2023 Telephone encounter Rahul messina MD Work Phone: [facility] Provider Adult Comment on above: Hospital To Hospital Start: 07-10-2023 End: 07-13-2023 Evaluation and management of inpatient REMINGTON CAI Facility:[facility] Start: 06-12-2023 End: 06-12-2023 ambulatory [facility] Facility:[facility] Start: 05-17-2023 End: 05-17-2023 Subsequent hospital visit by physician Joe [facility] Work Phone: Radiology Comment on above: Chronic cough [R05.3 ] Start: 04-26-2023 Telephone encounter Mandeep ochoa DO Work Phone: [facility] [place] Comment on above: Results Start: 04-17-2023 Telephone encounter Mandeep ochoa DO Work Phone: [facility] [place] Start: 04-09-2023 End: 04-09-2023 Patient encounter procedure Santo Oneill MD Work Phone: Cardiology Comment on above: Primary hypertension ; Chronic diastolic congestive heart failure (HCC) Start: 03-01-2023 Telephone encounter Mandeep ochoa DO Work Phone: Family [facility] Comment on above: Results Start: 01-09-2023 End: 01-09-2023 Refill Santo Oneill MD Work Phone: Cardiology Comment on above: Refill Request Hypothyroidism, unsp ecified type (Primary Dx); Somatic dysfunction of spine, cervical; Somatic dysfunction of rib; Somatic dysfunction of head region; Chronic bilateral thoracic back pain; Chronic neck pain; Neck fullness Start: 12-22-2022 Telephone encounter Mandeep ochoa DO Work Phone: [facility] [place] Comment on above: Results Start: 12-19-2022 Telephone encounter Mandeep ochoa DO Work Phone: Family [facility] Comment on above: Results Start: 12-14-2022 End: 12-14-2022 Subsequent hospital visit by physician Joe [facility] [place] Work Phone: Radiology Comment on above: SOB (shortness of br eath) [R06.02] Start: 10-24-2022 Telephone encounter Oliverio Cross gretadiane Work Phone: Podiatry Comment on above: Orders Start: 10-15-2022 Telephone encounter Estelita hess BUSINESS STRATEGY MANAGER.STRATEGIC BUYER Work Phone: [facility] Comment on above: Results Start: 10-14-2022 End: 10-14-2022 Patient encounter procedure Shanellraghav Cox BUSINESS STRATEGY MANAGER.STRATEGIC BUYER Work Phone: [facility] Comment on above: Acute cough (Primary Dx); Sore throat Start: 10-10-2022 End: 10-10-2022 Patient encounter procedure Mandeep Eldervalerie MENDOZA Work Phone: [facility] [place] Comment on above: Chronic bilateral th oracic [...] 09-04-2022 Subsequent hospital visit by physician [facility] (I-Stat) Work Phone: Cat Scan [...] Mixed hyperlipidemia Start: 08-03-2022 ambulatory [facility] Start: 07-26-2022 Telephone encounter Alejandrina Johnson APRN.STRATEGIC BUYER Work Phone: [facility] Comment on above: Results Start: 07-25-2022 End: 07-25-2022 Subsequent hospital visit by physician Bone Density [facility] Work Phone: Radiology Comment on above: Screening for osteop orosis [Z13.820] Start: 07-21-2022 End: 07-21-2022 Patient encounter procedure Alejandrina Harvey APRN.STRATEGIC BUYER Work Phone: [facility] Comment on above: Hypothyroidism, unsp ecified type (Primary Dx); Primary hypertension; Mixed hyperlipidemia; Vitamin D deficiency; Asymptomatic menopause; Encounter for vitamin deficiency screening; Screening for diabetes mellitus; Elevated glucose; Encounter for immunization; Screening for osteoporosis; Encounter for screening for osteoporosis Start: 07-18-2022 End: 07-18-2022 Patient encounter procedure Mandeep Houser DO Work Phone: [facility] Comment on above: Chronic right-sided thoracic back pain (Primary Dx); Somatic dysfunction of spine, cervical; Somatic dysfunction of spine, thoracic; Somatic dysfunction of rib; Rib pain on right side Start: 07-03-2022 End: 07-03-2022 Patient encounter procedure Mandeep Houser DO Work Phone: [facility] Comment on above: Chronic bilateral th oracic back pain (Primary Dx); Somatic dysfunction of rib; Somatic dysfunction of spine, thoracic; Somatic dysfunction of spine, cervical; Rib pain on right side; Somatic dysfunction of head region Start: 05-24-2022 Telephone encounter Mandeep ochoa DO Work Phone: [facility] [place] Start: 05-22-2022 End: 05-22-2022 Patient encounter procedure Mandeep Houser DO Work Phone: [facility] [place] Comment on above: Dysuria (Primary Dx) ; Urticaria; Food allergy; Allergic urticaria; Somatic dysfunction of spine, thoracic; Somatic dysfunction of rib; Somatic dysfunction of spine, cervical; Rib pain on right side; Somatic dysfunction of head region Start: 05-16-2022 Refill Santo Oneill MD Work Phone: Cardiology Comment on above: Refill Request Start: 05-03-2022 Telephone encounter Mandeep ochoa DO Work Phone: [address] [place] [address] Comment on above: Patient Question Start: 05-03-2022 End: 05-03-2022 Patient encounter procedure Mandeep Houser DO Work Phone: [facility] [place] Comment on above: Rib pain on right si de (Primary Dx); Somatic dysfunction of spine, cervical; Somatic dysfunction of rib; Somatic dysfunction of spine, thoracic Start: 04-05-2022 ambulatory No Pcp (Historical) Ref erring Physician Start: 03-31-2022 ambulatory No Pcp (Historical) Ref erring Physician Start: 03-13-2022 Telephone encounter Alejandrina Johnson APRN.CNP Work Phone: [facility] Comment on above: Results Start: 03-10-2022 Telephone encounter Alejandrina Johnson APRN.CNP Work Phone: [facility] [place] Comment on above: Consult Start: 02-13-2022 End: 02-13-2022 Patient encounter procedure Santo Oneill MD Work Phone: Cardiology Comment on above: Cardiomegaly (Primar y Dx); Primary hypertension; Chronic diastolic congestive heart failure (HCC); Palpitations; Acute on chronic systolic CHF (congestive heart failure) (HCC) Start: 01-20-2022 End: 01-20-2022 Patient encounter procedure Alejandrina Harvey APRN.CNP Work Phone: [facility] Comment on above: Routine physical exa mination (Primary Dx); Primary hypertension; Mixed hyperlipidemia; Coronary artery disease involving [place] coronary artery of [place] heart with other form of angina pectoris (HCC); Vitamin D deficiency; Hypothyroidism, unspecified type Start: 01-20-2022 End: 01-20-2022 Physical examination Alejandrina Harvey APRN.CNP Work Phone: [facility] [place] Start: 01-13-2022 Telephone encounter Estelita Culp APRN.CNP Work Phone: Cardiology Comment on above: Results Start: 12-27-2021 Refill Mandeep Gamble son DO Work Phone: [facility] Comment on above: Refill Request Start: 12-19-2021 End: 12-19-2021 Patient encounter procedure Sincere Perkins PA-C Work Phone: General Surgery Comment on above: Diverticulosis (Prim moni Dx); History of Clostridium difficile colitis; Abdominal bloating Start: 12-08-2021 Telephone encounter Santo Oneill MD Work Phone: Cardiology Comment on above: Patient Question Start: 12-05-2021 End: 12-05-2021 Subsequent hospital visit by physician Wes Marshall MD Work Phone: [facility] Comment on above: Abdominal bloating [ R14.0] Start: 11-29-2021 Telephone encounter Santo Oneill MD Work Phone: Cardiology Comment on above: Medication Problem Start: 11-10-2021 Orders Only Santo Oneill MD Work Phone: Cardiology Start: 11-02-2021 Telephone encounter iSncere MAC-C Work Phone: General Surgery Comment on above: 12/05 COLON/ASC MEDIN A Start: 11-02-2021 End: 11-02-2021 Patient encounter procedure Sincere MAC-Joaquín Work Phone: General Surgery Comment on above: Generalized abdomina l pain (Primary Dx); Bloating; Belching; History of colonic polyps; Chronic diastolic congestive heart failure (HCC) Start: 11-01-2021 ambulatory Mandeep Gamble son DO [facility] Phone: [facility] Start: 11-01-2021 Patient encounter procedure Mandeep Houser DO Work Phone: General Surgery Comment on above: Outpatient [place] py Start: 10-27-2021 Telephone encounter Estelita Culp APRN.CNP Work Phone: [facility] Comment on above: Results Start: 10-27-2021 End: 10-27-2021 Subsequent hospital visit by physician [facility] (I-Stat) Work Phone: Cat Scan Comment on above: Diverticulitis [K57. 92] Start: 10-24-2021 ambulatory Mandeep Gamble son DO Work Phone: [facility] [place] Start: 10-24-2021 Patient encounter procedure Mandeep Houser DO Work Phone: [facility] [place] Comment on above: Outpatient [place] py Start: 10-24-2021 Telephone encounter Estelita Culp MELI.STRATEGIC BUYER Work Phone: [employer] Comment on above: Preparations For Pro cedures Start: 10-19-2021 End: 10-19-2021 Patient encounter procedure Alejandrina Harvey MELI.STRATEGIC BUYER Work Phone: [facility] Comment on above: Diverticulitis (Prim moni Dx); RLQ abdominal pain; Lower abdominal pain Start: 09-21-2021 End: 09-21-2021 Patient encounter procedure Mandeep Houser DO Work Phone: [facility] Comment on above: Rib pain (Primary Dx ); Somatic dysfunction of head region; Somatic dysfunction of spine, cervical; Somatic dysfunction of rib; Somatic dysfunction of spine, thoracic; Neck pain Start: 09-19-[address] moyatoby MELI.STRATEGIC BUYER Work Phone: [facility] Comment on above: Results Start: 09-02-2021 Telephone encounter Alejandrina leslie MELI.STRATEGIC BUYER Work Phone: [facility] Comment on above: Results Start: 09-01-2021 End: 09-01-2021 Subsequent hospital visit by physician Joe [facility] [place] Work Phone: Radiology Comment on above: Chronic left shoulde r pain [M25.512, G89.29] Start: 09-01-2021 End: 09-01-2021 Patient encounter procedure Alejandrina Harvey MELI.STRATEGIC BUYER Work Phone: [facility] Comment on above: Chronic left shoulde r pain (Primary Dx); Left elbow pain; Primary hypertension; Mixed hyperlipidemia; Hypokalemia; Screening for lipid disorders; Screening for diabetes mellitus; Screening for thyroid disorder; Encounter for vitamin deficiency screening; Body mass index (BMI) 34.0-34.9, adult ; Abnormal finding of blood chemistry, unspecified Start: 08-29-2021 Telephone encounter Mandeep ochoa DO Work Phone: [facility] Comment on above: Appointment Start: 08-23-2021 ambulatory Farzana Rodriguez LPN [facility] [place] Start: 08-15-2021 Documentation procedure Mammog hermann Coordinator [facility] Start: 08-15-2021 Letter encounter Mammography Coordinator [facility] Department Start: 08-15-2021 End: 08-15-2021 Subsequent hospital visit by physician Screen Mammo [facility] Comment on above: Encounter for screen ing mammogram for breast cancer [Z12.31] Start: 08-09-2021 End: 08-09-2021 ambulatory Estelita Maradiaga PT Work Phone: [facility] Comment on above: Left shoulder pain, unspecified chronicity; Lateral epicondylitis of left elbow Start: 01-05-2021 End: 01-05-2021 Subsequent hospital visit by physician Joe [facility] [place] Work Phone: Radiology Comment on above: Chronic pain of righ t ankle [M25.571, G89.29] Start: 08-02-2020 End: 08-02-2020 Subsequent hospital visit by physician Joe [facility] [place] Work Phone: Radiology Comment on [...] foot complete minimum 3 views Kari Harvey BUSINESS STRATEGY MANAGER.STRATEGIC BUYER Work Phone: Start: 08-22-2023 Urnls dip stick/tablet rgnt auto w/o microscopy Alejandrina Harvey BUSINESS STRATEGY MANAGER.STRATEGIC BUYER Work Phone: Start: 08-07-2023 ICD CLINIC CHECK [...] study 1/> sites axial skel Alejandrina Harvey BUSINESS STRATEGY MANAGER.STRATEGIC BUYER Work Phone: Start: 12-05-2021 Colonoscopy flx dx w/collj spec when pfrmd Sincere Perkins PA-C Work Phone: Start: 12-05-2021 Esophagogastroduodenoscopy transoral diagnostic Sincere Perkins PA-C Work Phone: Start: 12-05-2021 Colonoscopy Wes Marshall MD Work Phone: Start: 10-27-2021 Ct abdomen & pelvis w/contrast material Alejandrina Harvey APRN.STRATEGIC BUYER Work Phone: Start: 09-01-2021 Radex elbow 2 views Alejandrina Harvey APRN.STRATEGIC BUYER Work Phone: Start: 08-15-2021 End: 08-15-2021 Screening [...] Author Start: 07-08-2027 Diabetes Screening Diabetes Screening [facility] Start: 04-22-2027 Diabetes Screening Diabetes Screening [facility] Start: 01-12-2027 LIPID SCREEN LIPID SCREEN [facility] Start: 12-11-2026 Diabetes Screening Diabetes Screening [facility] Start: 12-05-2026 Colonoscopy COLONOSCOPY [facility] Start: 12-05-2026 COLORECTAL CANCER SCREENING COLORECTAL CANCER SCREENING [facility] Start: 11-17-2026 Diabetes Screening Diabetes Screening [facility] Start: 10-14-2026 Diabetes Screening Diabetes Screening [facility] Start: 09-19-2026 Diabetes Screening Diabetes Screening [facility] Start: 09-14-2026 LIPID SCREEN LIPID SCREEN [facility] Start: 08-21-2026 Diabetes Screening Diabetes Screening [facility] Start: 07-23-2026 Diabetes Screening Diabetes Screening [facility] Start: 07-17-2026 Diabetes Screening Diabetes Screening [facility] Start: 07-10-2026 Diabetes Screening Diabetes Screening [facility] Start: 02-27-2026 Diabetes Screening Diabetes Screening [facility] Start: 12-22-2025 LIPID SCREEN LIPID SCREEN [facility] Start: 12-14-2025 DIABETES SCREEN DIABETES SCREEN [facility] Start: 12-14-2025 Diabetes Screening Diabetes Screening [facility] Start: 10-21-2025 Annual PCP Team Chronic Disease Visit Annual PCP Team Chronic Disease Visit [facility] Start: 09-30-2025 Annual PCP Team Chronic Disease Visit Annual PCP Team Chronic Disease Visit [facility] Start: 08-25-2025 Annual PCP Team Chronic Disease Visit Annual PCP Team Chronic Disease Visit [facility] Start: 08-04-2025 Annual PCP Team Chronic Disease Visit Annual PCP Team Chronic Disease Visit [facility] Start: 07-21-2025 Annual PCP Team Chronic Disease Visit Annual PCP Team Chronic Disease Visit [facility] Start: 07-21-2025 DIABETES SCREEN DIABETES SCREEN [facility] Start: 07-08-2025 Annual PCP Team Chronic Disease Visit Annual PCP Team Chronic Disease Visit [facility] Start: 07-08-2025 BP Controlled (<130/80) BP Controlled (<130/80) [facility] in Start: 06-20-2025 Annual PCP Team Chronic Disease Visit Annual PCP Team Chronic Disease Visit [facility] Start: 05-30-2025 Annual PCP Team Chronic Disease Visit Annual PCP Team Chronic Disease Visit [facility] Start: 05-22-2025 DIABETES SCREEN DIABETES SCREEN [facility] Start: 05-20-2025 End: 05-20-2025 Patient encounter procedure 05/20/2025 2:00 PM EST Office Visit Cardiology [address] [place] [address] [place] [address] [place], [place] [id number] 6 months follow up Cardiology Comment on above: 6 months follow up Start: 05-12-2025 Annual PCP Team Chronic Disease Visit Annual PCP Team Chronic Disease Visit [facility] Start: 04-22-2025 Annual PCP Team Chronic Disease Visit Annual PCP Team Chronic Disease Visit [facility] Start: 03-09-2025 End: 03-09-2025 Patient encounter procedure 03/09/2025 2:00 PM EDT Office Visit Cardiology [address] [place] [address] Santo Oneill MD [address] [facility] [place] [address] [place], [place] [id number] 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]; Nonischemic cardiomyopathy (HCC) [I42.8] Cardiology Comment on above: 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]; Nonischemic cardiomyopathy (HCC) [I42.8] Start: 02-11-2025 Annual PCP Team Chronic Disease Visit Annual PCP Team Chronic Disease Visit [facility] Start: 01-28-2025 Annual PCP Team Chronic Disease Visit Annual PCP Team Chronic Disease Visit [facility] Start: 01-14-2025 BP Controlled (<130/80) BP Controlled (<130/80) [facility] Start: 01-12-2025 DIABETES SCREEN DIABETES SCREEN [facility] Start: 01-03-2025 Annual PCP Team Chronic Disease Visit Annual PCP Team Chronic Disease Visit [facility] Start: 12-11-2024 Annual PCP Team Chronic Disease Visit Annual PCP Team Chronic Disease Visit [facility] Start: 11-24-2024 End: 11-24-2024 Patient encounter procedure 11/24/2024 2:00 PM EDT Office Visit [facility] [place] [address] [place] [address] Mandeep Houser DO [address] [place] [address] OMT Family [facility] [place] Comment on above: OMT Start: 11-21-2024 End: 11-21-2024 Patient encounter procedure 11/21/2024 11:20 AM EDT Office Visit Cardiology [address] [place] [id number] Álvaro Lobo MD [address] [place] [address] follow up Cardiology Comment on above: follow up Start: 11-13-2024 Incentive spirometry [facility] Start: 11-13-2024 End: 11-13-2024 [facility] Start: 11-06-2024 Annual PCP Team Chronic Disease Visit Annual PCP Team Chronic Disease Visit 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 Start: 10-30-2024 Anxiety Screening Anxiety Screening [facility] Start: 10-30-2024 Depression Screening Depression Screening [facility] Start: 10-27-2024 DIABETES SCREEN DIABETES SCREEN [facility] Start: 10-21-2024 End: 10-21-2024 Patient encounter procedure 10/21/2024 3:20 PM EDT Office Visit [facility] [address] [place] [address] Mandeep Houser DO [address] [facility] [place] [id number] OMT [facility] [place] Comment on above: OMT Start: 10-14-2024 Annual PCP Team Chronic Disease Visit Annual PCP Team Chronic Disease Visit [facility] Start: 10-14-2024 RSV Vaccine (1 - 1-dose 60+ series) RSV Vaccine (1 - 1-dose 60+ series) [facility] Comment on above: Postponed from 2006 (Declined at t his time) Start: 10-14-2024 RSV Vaccine (1 - 1-dose 75+ series) RSV Vaccine (1 - 1-dose 75+ series) [facility] Comment on above: Postponed from 2021 (Declined at t his time) Start: 10-14-2024 Shingrix Vaccine (1 of 2) Shingrix Vaccine (1 of 2) [facility] Comment on above: Postponed from 1996 (Declined at t his time) Start: 10-14-2024 Urine microalbumin profile DTaP,Tdap,Td Vaccine (1 - Tdap) [facility] Comment on above: Postponed from 1965 (Declined at t his time) Start: 10-14-2024 End: 10-14-2024 Patient encounter procedure Cardiology Comment on above: 9 months follow up Start: 09-30-2024 Annual PCP Team Chronic Disease Visit Annual PCP Team Chronic Disease Visit [facility] Start: 09-23-2024 End: 09-23-2024 Patient encounter procedure 09/23/2024 3:40 PM EDT Office Visit Family [facility] [employer] [address] [facility] [place] [address] Mandeep Houser, [address] [facility] [place] [address] OMT Family [facility] [employer] Comment on above: OMT Start: 09-19-2024 Hepatitis B surface antibody level LDL Cholesterol [facility] Start: 09-14-2024 DIABETES SCREEN DIABETES SCREEN [facility] Start: 09-12-2024 Annual PCP Team Chronic Disease Visit Annual PCP Team Chronic Disease Visit [facility] Start: 08-25-2024 End: 08-25-2024 Patient encounter procedure 08/25/2024 3:40 PM EDT Office Visit Family [facility] [employer] [address] [place] [address] Mandeep Houser DO [address] [facility] [place] [address] OMT [facility] [place] Comment on above: OMT Start: 08-22-2024 End: 08-22-2024 Patient encounter procedure 08/22/2024 11:20 AM EDT Office Visit Cardiology [address] [address] Álvaro Lobo MD [address] [place] [address] follow up Cardiology Comment on above: follow up Start: 08-21-2024 Annual PCP Team Chronic Disease Visit Annual PCP Team Chronic Disease Visit [facility] Start: 08-20-2024 End: 08-20-2024 Patient encounter procedure 08/20/2024 1:00 PM EDT Office Visit Cardiology [address] [address] Angel Castro DO [address] [place] [address] 6 month follow up Cardiology Comment on above: 6 month follow up Start: 08-15-2024 End: 08-15-2024 Patient encounter procedure 08/15/2024 1:00 PM EDT Office Visit Cardiology [address] [place] [address] Nonischemic cardiomyopathy (HCC) [I42.8] Cardiology Comment on above: Nonischemic cardiomyopathy (HCC) [I42.8] Start: 08-06-2024 BP Controlled (<130/80) BP Controlled (<130/80) [facility] Start: 08-06-2024 End: 02-06-2025 Echocardiography ECHO Cardiology Routine Nonischemic cardiomyopathy (HCC) Expected: 08/06/2024, Expires: 02/06/2025 [facility] Work Phone: Comment on above: Expected: 08/06/2024, Expires: Start: 08-06-2024 End: 08-06-2024 Patient encounter procedure 08/06/2024 11:20 AM EDT Office Visit Cardiology [address] [address] Nonischemic cardiomyopathy (HCC) [I42.8] Cardiology Comment on above: Nonischemic cardiomyopathy (HCC) [I42.8] Start: 08-04-2024 End: 08-04-2024 Patient encounter procedure 08/04/2024 2:00 PM EDT Office Visit [facility] [place] [address] [facility] [place] [address] Mandeep Houser DO [address] [facility] [place] [address] Omt [facility] [place] Comment on above: Omt Start: 07-23-2024 Annual PCP Team Chronic Disease Visit Annual PCP Team Chronic Disease Visit [facility] Start: 07-21-2024 End: 07-21-2024 Patient encounter procedure 07/21/2024 4:00 PM EDT Office Visit Family [employer] [address] [facility] [place] [address] Mandeep Houser, [address] [facility] [place] [address] 2 week follow up Family [employer] Comment on above: 2 week follow up Start: 07-08-2024 End: 10-07-2024 25-hydroxyvitamin D3 [Mass/volume] in Serum or Plasma [facility] Comment on above: Expected: 07/08/2024, Expires: Start: 07-08-2024 End: 10-07-2024 Cobalamin (Vitamin B12) [Mass/volume] in Serum or Plasma [facility] Comment on above: Expected: 07/08/2024, Expires: Start: 07-08-2024 End: 10-07-2024 Comprehensive metabolic 2000 panel - Serum or Plasma [facility] Comment on above: Expected: 07/08/2024, Expires: Start: 07-08-2024 End: 10-07-2024 Magnesium [Mass/volume] in Serum or Plasma [facility] Comment on above: Expected: 07/08/2024, Expires: Start: 07-08-2024 End: 10-07-2024 Natriuretic peptide.B prohormone N-Terminal [Mass/volume] in Serum or Plasma [facility] Comment on above: Expected: 07/08/2024, Expires: Start: 07-08-2024 End: 07-08-2024 Patient encounter procedure 07/08/2024 2:00 PM EST Office Visit [facility] [place] [address] [place] [address] Mandeep Houser DO [address] [place] [address] OMT [facility] Comment on above: OMT Start: 07-08-2024 End: 10-07-2024 Thyrotropin [Units/volume] in Serum or Plasma [facility] Comment on above: Expected: 07/08/2024, Expires: Start: 07-08-2024 End: 10-07-2024 Thyroxine (T4) free [Mass/volume] in Serum or Plasma [facility] Comment on above: Expected: 07/08/2024, Expires: Start: 07-08-2024 End: 10-07-2024 Urinalysis complete panel - Urine [facility] Work Phone: Comment on above: Expected: 07/08/2024, Expires: Start: 06-20-2024 End: 06-20-2024 Patient encounter procedure 06/20/2024 2:20 PM EST Office Visit [facility] [place] [address] [place] [address] Mandeep Houser, [address] [place] [address] OMT [facility] [place] Comment on above: OMT Start: 06-12-2024 BP Controlled (<130/80) BP Controlled (<130/80) [facility] Start: 05-30-2024 End: 05-30-2024 Patient encounter procedure 05/30/2024 3:20 PM EST Office Visit [facility] [place] [address] [place] [address] Mandeep Houser, [address] [place] [address] OMT [facility] [place] Comment on above: OMT Start: 05-14-2024 Advance Directive Discussion Advance Directive Discussion [facility] Start: 05-12-2024 End: 05-12-2024 Patient encounter procedure 05/12/2024 3:20 PM EST Office Visit [facility] [place] [address] [facility] [place] [address] Mandeep Houser, DO [address] [facility] [place] [address] OMT [facility] Comment on above: OMT Start: 04-22-2024 End: 07-22-2024 Bacteria identified in Urine by Culture URINE CULTURE Microbiology Routine Suprapubic pain Expected: 04/22/2024, Expires: 07/22/2024 [facility] Work Phone: Comment on above: Expected: 04/22/2024, Expires: 5 Start: 04-22-2024 End: 07-22-2024 C reactive protein [Mass/volume] in Serum or Plasma [facility] Comment on above: Expected: 04/22/2024, Expires: 5 Start: 04-22-2024 End: 07-22-2024 Comprehensive metabolic 2000 panel - Serum or Plasma [facility] Comment on above: Expected: 04/22/2024, Expires: 5 Start: 04-22-2024 End: 07-22-2024 Lipase [Enzymatic activity/volume] in Serum or Plasma [facility] Comment on above: Expected: 04/22/2024, Expires: Start: 04-22-2024 End: 04-22-2024 Patient encounter procedure 04/22/2024 2:00 PM EST Office Visit [facility] [place] [address] [place] [address] Mandeep Houser, DO [address] [place] [address] OMT [facility] [place] Comment on above: OMT Start: 04-17-2024 Annual PCP Team Chronic Disease Visit Annual PCP Team Chronic Disease Visit [facility] Start: 03-18-2024 End: 03-18-2024 Patient encounter procedure 03/18/2024 2:00 PM EST Office Visit [facility] [place] [address] [place] [address] Mandeep Houser, DO [address] [place] [address] OMT [facility] [place] Comment on above: OMT Start: 02-12-2024 End: 02-12-2024 Patient encounter procedure 02/12/2024 2:00 PM EDT Office Visit [facility] [place] [address] [place] [address] Mandeep Houser, DO [address] [place] [address] OMT [facility] [place] Comment on above: OMT Start: 02-12-2024 End: 05-13-2024 Thyrotropin [Units/volume] in Serum or Plasma [facility] Work Phone: Comment on above: Expected: 02/12/2024, Expires: Start: 02-12-2024 End: 05-13-2024 Thyroxine (T4) free [Mass/volume] in Serum or Plasma [facility] Comment on above: Expected: 02/12/2024, Expires: Start: 02-12-2024 End: 05-13-2024 Triiodothyronine (T3) Free [Mass/volume] in Serum or Plasma [facility] Comment on above: Expected: 02/12/2024, Expires: Start: 02-07-2024 End: 02-07-2024 Patient encounter procedure 02/07/2024 2:20 PM EDT Office Visit Cardiology [address] [address] Angel Castro DO [address] [place] [address] 3 month follow up Cardiology Comment on above: 3 month follow up Start: 02-07-2024 Annual PCP Team Chronic Disease Visit Annual PCP Team Chronic Disease Visit [facility] Start: 02-01-2024 DIABETES SCREEN DIABETES SCREEN [facility] Start: 01-29-2024 End: 04-29-2024 Thyrotropin [Units/volume] in Serum or Plasma THYROID STIMULATING HORMONE Lab Routine Hypothyroidism, acquired Expected: 01/29/2024, Expires: 04/29/2024 [facility] Work Phone: Comment on above: Expected: 01/29/2024, Expires: Start: 01-29-2024 End: 04-29-2024 Thyroxine (T4) free [Mass/volume] in Serum or Plasma T4 FREE/FREE THYROXINE Lab Routine Hypothyroidism, acquired Expected: 01/29/2024, Expires: 04/29/[address] [facility] Comment on above: Expected: 01/29/2024, Expires: Start: 01-29-2024 End: 04-29-2024 Triiodothyronine (T3) Free [Mass/volume] in Serum or Plasma T3, FREE Lab Routine Hypothyroidism, acquired Expected: 01/29/2024, Expires: 04/29/[address] [facility] Comment on above: Expected: 01/29/2024, Expires: Start: 01-29-2024 End: 01-29-2024 Patient encounter procedure 01/29/2024 11:40 AM EDT Office Visit [facility] [place] [address] [place] [address] Mandeep Houser DO [address] [facility] [place] [address] OMT [facility] [place] Comment on above: OMT Start: 01-15-2024 End: 01-15-2024 Patient encounter procedure 01/15/2024 1:00 PM EDT Office Visit Cardiology [id number] [facility] [address] [place] [id number] [place] [address] [place] [address] 5 months follow up in office per Cardiology Comment on above: 5 months follow up in office per Start: 01-10-2024 ANNUAL PCP TEAM CHRONIC DISEASE VISIT ANNUAL PCP TEAM CHRONIC DISEASE VISIT [facility] Start: 01-07-2024 End: 01-07-2024 Patient encounter procedure Cardiology Comment on above: 5 month follow up office appointment per Start: 01-04-2024 End: 01-04-2024 Patient encounter procedure 01/04/2024 4:20 PM EDT Office Visit [facility] [place] [address] [facility] [place] [address] Mandeep Houser DO [address] [facility] [place] [address] OMT [facility] [place] Comment on above: OMT Start: 12-14-2023 ANNUAL PCP TEAM CHRONIC DISEASE VISIT ANNUAL PCP TEAM CHRONIC DISEASE VISIT [facility] Start: 12-12-2023 End: 12-12-2023 Patient encounter procedure 12/12/2023 3:40 PM EDT Office Visit [facility] Medicine [place] [address] [facility] [place] [address] Mandeep Houser DO [address] [facility] [place] [address] OMT [facility] [place] Comment on above: OMT Start: 12-05-2023 End: 12-05-2023 Patient encounter procedure 12/05/2023 1:00 PM EDT Appointment Cardiology Lab [address] [place] [id number] [facility] Lab Comment on above: ECHO Start: 11-27-2023 End: 11-27-2023 Patient encounter procedure 11/27/2023 11:20 AM EDT Office Visit [facility] [place] [address] [facility] [place] [address] Mandeep Houser, [address] [place] [address] OMT [facility] [place] Comment on above: OMT Start: 11-14-2023 End: 11-14-2023 Patient encounter procedure 11/14/2023 11:40 AM EDT Office Visit Cardiology [address] [address] Angel Castro, DO [address] [place] [address] 3 month follow up Cardiology Comment on above: 3 month follow up Start: 11-07-2023 End: 11-07-2023 Patient encounter procedure 11/07/2023 1:00 PM EDT Office Visit Cardiology [address] [address] ECHO Cardiology Comment on above: ECHO Start: 11-01-2023 End: 11-01-2023 Patient encounter procedure Cardiology Comment on above: follow up check incision Word finding difficu lty [R47.89]; New onset of headaches after age 50 [R51.9] Start: 10-31-2023 End: 10-31-2023 Patient encounter procedure 10/31/2023 3:00 PM EDT Office Visit Family Medicine [place] [address] [place] [address] Mandeep Houser, [address] [place] [address] 3 month follow up Family [facility] Comment on above: 3 month follow up Start: 10-31-2023 End: 01-30-2024 25-hydroxyvitamin D3 [Mass/volume] in Serum or Plasma [facility] Work Phone: Comment on above: Expected: 10/31/2023, Expires: 4 Start: 10-31-2023 End: 01-30-2024 C reactive protein [Mass/volume] in Serum or Plasma [facility] Comment on above: Expected: 10/31/2023, Expires: 4 Start: 10-31-2023 End: 01-30-2024 Iron and Iron binding capacity panel - Serum or Plasma [facility] Comment on above: Expected: 10/31/2023, Expires: 4 Start: 10-31-2023 End: 01-30-2024 Magnesium [Mass/volume] in Serum or Plasma [facility] Comment on above: Expected: 10/31/2023, Expires: Start: 10-31-2023 End: 01-30-2024 Thyrotropin [Units/volume] in Serum or Plasma [facility] Comment on above: Expected: 10/31/2023, Expires: Start: 10-31-2023 End: 01-30-2024 Thyroxine (T4) free [Mass/volume] in Serum or Plasma [facility] Comment on above: Expected: 10/31/2023, Expires: Start: 10-31-2023 End: 01-30-2024 Triiodothyronine (T3) Free [Mass/volume] in Serum or Plasma [facility] Comment on above: Expected: 10/31/2023, Expires: 4 Start: 10-15-2023 BP CONTROLLED (<130/80) BP CONTROLLED (<130/80) [facility] Start: 10-15-2023 End: 01-14-2024 Comprehensive metabolic 2000 panel - Serum or Plasma [facility] Work Phone: Comment on above: Expected: 10/15/2023, Expires: 4 Start: 10-15-2023 End: 01-14-2024 Urate [Mass/volume] in Serum or Plasma [facility] Comment on above: Expected: 10/15/2023, Expires: 4 Start: 10-11-2023 ANNUAL PCP TEAM CHRONIC DISEASE VISIT ANNUAL PCP TEAM CHRONIC DISEASE VISIT [facility] Start: 10-02-2023 End: 10-02-2023 ambulatory Cardiology Comment on above: Phone visit 6-[address] Wells please call [phone] Start: 09-24-2023 End: 09-24-2023 Patient encounter procedure 09/24/2023 10:15 AM EDT Office Visit Podiatry [address] [place], [place] [id number] Oliverio Mata [address] [place], [place] [id number] left foot pain swollen Podiatry Comment on above: left foot pain swollen Start: 09-19-2023 End: 12-19-2023 Basic metabolic 2000 panel - Serum or Plasma BASIC METABOLIC PANEL Lab Routine Nonischemic cardiomyopathy (HCC) Chronic systolic congestive heart failure (HCC) Expected: 09/19/2023 (Approximate), Expires: 12/19/2023 [facility] Work Phone: Comment on above: Expected: 09/19/2023 (Approximate), Expi res: 12/19/2023 Start: 09-05-2023 End: 12-05-2023 Lipid 1996 panel - Serum or Plasma LIPID PANEL BASIC Lab Routine Mixed hyperlipidemia Expected: 09/05/2023, Expires: 12/05/[address] [facility] Comment on above: Expected: 09/05/2023, Expires: Start: 08-23-2023 ANNUAL PCP TEAM CHRONIC DISEASE VISIT ANNUAL PCP TEAM CHRONIC DISEASE VISIT [facility] Start: 08-15-2023 BP CONTROLLED (<130/80) BP CONTROLLED (<130/80) [facility] Start: 08-03-2023 ANNUAL PCP TEAM CHRONIC DISEASE VISIT ANNUAL PCP TEAM CHRONIC DISEASE VISIT [facility] Start: 07-24-2023 End: 10-23-2023 25-hydroxyvitamin D3 [Mass/volume] in Serum or Plasma [facility] Work Phone: Comment on above: Expected: 07/24/2023, Expires: Start: 07-22-2023 ANNUAL PCP TEAM CHRONIC DISEASE VISIT ANNUAL PCP TEAM CHRONIC DISEASE VISIT [facility] Start: 07-22-2023 Hepatitis B surface antibody level LDL CHOLESTEROL [facility] Start: 07-22-2023 HEPATITIS C SCREENING HEPATITIS C SCREENING [facility] Comment on above: Postponed from 1964 (Declined at t his time) Start: 07-22-2023 Hepatitis C screening Hepatitis C Screening [facility] Comment on above: Postponed from 1964 (Declined at t his time) Start: 07-22-2023 Urine microalbumin profile [facility] Comment on above: Postponed from 1965 (Declined at t his time) Start: 07-19-2023 ANNUAL PCP TEAM CHRONIC DISEASE VISIT ANNUAL PCP TEAM CHRONIC DISEASE VISIT [facility] Start: 05-14-2023 Advance Directive Discussion Advance Directive Discussion [facility] Start: 05-14-2023 Behavioral Health Screening Behavioral Health Screening [facility] Start: 05-14-2023 Depression Assessment Depression Assessment [facility] Start: 05-13-2023 ADVANCE DIRECTIVE DISCUSSION ADVANCE DIRECTIVE DISCUSSION [facility] Comment on above: Postponed from 05/14/2022 (Declined at t his time) Start: 05-03-2023 ANNUAL PCP TEAM CHRONIC DISEASE VISIT ANNUAL PCP TEAM CHRONIC DISEASE VISIT [facility] Start: 03-10-2023 ANNUAL PCP TEAM CHRONIC DISEASE VISIT ANNUAL PCP TEAM CHRONIC DISEASE VISIT [facility] Start: 03-10-2023 BP CONTROLLED (<130/80) BP CONTROLLED (<130/80) [facility] Start: 02-09-2023 End: 04-11-2023 CBC W Auto Differential panel - Blood CBC + DIFF Lab Routine Hypothyroidism, unspecified type Expected: 02/09/2023, Expires: 04/11/2023 [facility] Work Phone: Comment on above: Expected: 02/09/2023, Expires: 3 Start: 02-09-2023 End: 04-11-2023 Comprehensive metabolic 2000 panel - Serum or Plasma COMP METABOLIC PANEL Lab Routine Hypothyroidism, unspecified type Expected: 02/09/2023, Expires: 04/11/2023 [facility] Work Phone: Comment on above: Expected: 02/09/2023, Expires: 3 Start: 02-09-2023 End: 04-11-2023 Thyrotropin [Units/volume] in Serum or Plasma TSH BLD Lab Routine Hypothyroidism, unspecified type Expected: 02/09/2023, Expires: 04/11/2023 [facility] Work Phone: Comment on above: Expected: 02/09/2023, Expires: 3 Start: 02-09-2023 End: 04-11-2023 Thyroxine (T4) free [Mass/volume] in Serum or Plasma T4 FREE/FREE THYROX Lab Routine Hypothyroidism, unspecified type Expected: 02/09/2023, Expires: 04/11/2023 [facility] Work Phone: Comment on above: Expected: 02/09/2023, Expires: 3 Start: 02-09-2023 End: 04-11-2023 Triiodothyronine (T3) Free [Mass/volume] in Serum or Plasma T3 FREE BLD Lab Routine Hypothyroidism, unspecified type Expected: 02/09/2023, Expires: 04/11/2023 [facility] Work Phone: Comment on above: Expected: 02/09/2023, Expires: 3 Start: 01-20-2023 ANNUAL PCP TEAM CHRONIC DISEASE VISIT ANNUAL PCP TEAM CHRONIC DISEASE VISIT [facility] Start: 01-20-2023 BP CONTROLLED (<130/80) BP CONTROLLED (<130/80) [facility] Start: 01-12-2023 Hepatitis B surface antibody level LDL CHOLESTEROL [facility] Start: 12-19-2022 BP CONTROLLED (<130/80) BP CONTROLLED (<130/80) [facility] Start: 11-02-2022 BP CONTROLLED (<130/80) BP CONTROLLED (<130/80) [facility] Start: 10-19-2022 ANNUAL PCP TEAM CHRONIC DISEASE VISIT ANNUAL PCP TEAM CHRONIC DISEASE VISIT [facility] Start: 10-14-2022 End: 10-28-2022 Influenza virus A and B RNA and SARS-CoV-2 (COVID-19) N gene panel - Respiratory specimen by PRECIOUS with probe detection COVID WITH FLUA+B, ROUTINE Microbiology Routine Sore throat Acute cough Expected: 10/14/2022, Expires: 10/28/2022 [facility] Work Phone: Comment on above: Expected: 10/14/2022, Expires: 3 Start: 09-21-2022 ANNUAL PCP TEAM CHRONIC DISEASE VISIT ANNUAL PCP TEAM CHRONIC DISEASE VISIT [facility] Start: 09-14-2022 Hepatitis B surface antibody level LDL CHOLESTEROL [facility] Start: 09-01-2022 ANNUAL PCP TEAM CHRONIC DISEASE VISIT ANNUAL PCP TEAM CHRONIC DISEASE VISIT [facility] Start: 08-15-2022 Mammography MAM[address] [facility] Start: 07-01-2022 ANNUAL PCP TEAM CHRONIC DISEASE VISIT ANNUAL PCP TEAM CHRONIC DISEASE VISIT [facility] Start: 05-14-2022 ADVANCE DIRECTIVE DISCUSSION ADVANCE DIRECTIVE DISCUSSION [facility] Start: 05-14-2022 DEPRESSION ASSESSMENT DEPRESSION ASSESSMENT [facility] Start: 02-20-2022 End: 02-13-2023 Echocardiography ECHO Cardiology Routine Cardiomegaly Expected: 02/20/2022, Expires: 02/13/2023 [facility] Work Phone: Comment on above: Expected: 02/20/2022, Expires: 3 Start: 12-29-2021 PNEUMOCOCCAL: 65+ (2 - PCV) PNEUMOCOCCAL: 65+ (2 - PCV) [facility] Start: 12-22-2021 Hepatitis B surface antibody level LDL CHOLESTEROL [facility] Start: 12-09-2021 Adult depression screening assessment DEPRESSION SCREENING [facility] Start: 11-29-2021 End: 01-29-2022 Basic metabolic 2000 panel - Serum or Plasma BASIC METABOLIC PNL Lab Routine Chronic systolic CHF (congestive heart failure) (HCC) Expected: 11/29/2021, Expires: 01/29/2022 [facility] Work Phone: Comment on above: Expected: 11/29/2021, Expires: 2 Start: 11-29-2021 End: 01-29-2022 CBC panel - Blood by Automated count CBC Lab Routine Chronic systolic CHF (congestive heart failure) (HCC) Expected: 11/29/2021, Expires: 01/29/2022 [facility] Work Phone: Comment on above: Expected: 11/29/2021, Expires: 2 Start: 10-20-2021 End: 12-20-2021 T3 BLD T3 BLD Lab Routine Hypothyroidism, unspecified type Expected: 10/20/2021, Expires: 12/20/2021 [facility] Work Phone: Comment on above: Expected: 10/20/2021, Expires: 2 Start: 10-20-2021 End: 12-20-2021 T4 FREE/FREE THYROX T4 FREE/FREE THYROX Lab Routine Hypothyroidism, unspecified type Expected: 10/20/2021, Expires: 12/20/2021 [facility] Work Phone: Comment on above: Expected: 10/20/2021, Expires: 2 Start: 10-20-2021 End: 12-20-2021 Thyrotropin [Units/volume] in Serum or Plasma TSH BLD Lab Routine Hypothyroidism, unspecified type Expected: 10/20/2021, Expires: 12/20/2021 [facility] Work Phone: Comment on above: Expected: 10/20/2021, Expires: 2 Start: 09-01-2021 End: 11-01-2021 CBC W Auto Differential panel - Blood CBC + DIFF Lab Routine Primary hypertension Expected: 09/01/2021, Expires: 11/01/2021 [facility] Work Phone: Comment on above: Expected: 09/01/2021, Expires: 2 Start: 09-01-2021 End: 11-01-2021 Comprehensive metabolic 2000 panel - Serum or Plasma COMP METABOLIC PANEL Lab Routine Primary hypertension Hypokalemia Expected: 09/01/2021, Expires: 11/01/2021 [facility] Work Phone: Comment on above: Expected: 09/01/2021, Expires: 2 Start: 09-01-2021 End: 11-01-2021 Hemoglobin A1c/Hemoglobin.total in Blood HGB A1C Lab Routine Screening for diabetes mellitus Abnormal finding of blood chemistry, unspecified Expected: 09/01/2021, Expires: 11/01/2021 [facility] Work Phone: Comment on above: Expected: 09/01/2021, Expires: 2 Start: 09-01-2021 End: 11-01-2021 LIPID PANEL BASIC LIPID PANEL BASIC Lab Routine Mixed hyperlipidemia Expected: 09/01/2021, Expires: 11/01/2021 [facility] Work Phone: Comment on above: Expected: 09/01/2021, Expires: 2 Start: 09-01-2021 End: 11-01-2021 Thyrotropin [Units/volume] in Serum or Plasma TSH BLD Lab Routine Screening for thyroid disorder Expected: 09/01/2021, Expires: 11/01/2021 [facility] Work Phone: Comment on above: Expected: 09/01/2021, Expires: 2 Start: 09-01-2021 End: 11-01-2021 VITAMIN D 25 HYDROXY VITAMIN D 25 HYDROXY Lab Routine Encounter for vitamin deficiency screening Body mass index (BMI) 34.0-34.9, adult Expected: 09/01/2021, Expires: 11/01/2021 [facility] Work Phone: Comment on above: Expected: 09/01/2021, Expires: 2 Start: 08-09-2021 Mammography MAMMOGRAM [facility] Start: 2021 RSV Vaccine (1 - 1-dose 75+ series) RSV Vaccine (1 - 1-dose 75+ series) [facility] Start: 05-14-2021 ADVANCE DIRECTIVE DISCUSSION ADVANCE DIRECTIVE DISCUSSION [facility] Start: 05-14-2021 DEPRESSION ASSESSMENT DEPRESSION ASSESSMENT [facility] Start: 12-19-2019 Colonoscopy [address] [facility] Start: 12-19-2019 COLORECTAL CANCER SCREENING COLORECTAL CANCER SCREENING [facility] Start: 07-17-2011 BONE DENSITY BONE DENSITY [facility] Start: 07-13-2011 Medicare Annual Wellness Visit Medicare Annual Wellness Visit [facility] Start: 2006 RSV Vaccine (1 - 1-dose 60+ series) RSV Vaccine (1 - 1-dose 60+ series) [facility] Start: 1996 SHINGRIX VACCINE (1 of 2) SHINGRIX VACCINE (1 of 2) [facility] Start: 07-17-1991 COLOGUARD (FIT-DNA) COLOGUARD (FIT-DNA) [facility] Start: 07-17-[address] COLONOGRAPHY [facility] Start: 07-17-1991 FECAL OCCULT BLOOD FECAL OCCULT BLOOD [facility] Start: 07-17-1991 SIGMOIDOSCOPY SIGMOIDOSCOPY [facility] Start: 1965 Urine microalbumin profile [facility] Start: 1964 BP CONTROLLED (<130/80) BP CONTROLLED (<130/80) [facility] Start: 1964 HEPATITIS C SCREENING HEPATITIS C SCREENING [facility] Start: 1964 Hepatitis C screening Hepatitis C Screening [facility] End: 11-18-2022 Ct abdomen & pelvis w/contrast material CT ABD/PEL W IVCON Radiology Routine Diverticulitis RLQ abdominal pain Lower abdominal pain 1 Occurrences starting 10/19/2021 until 11/18/2022 [facility] Work Phone: Comment on above: 1 Occurrences starting 10/19/2021 until 11/18/2022 End: 09-21-2023 Ct abdomen & pelvis w/contrast material CT ABD/PEL W IVCON Radiology STAT Abdominal distension (gaseous) Nausea RUQ abdominal pain 1 Occurrences starting 08/22/2022 until 09/21/2023 [facility] Work Phone: Comment on above: 1 Occurrences starting 08/22/2022 until 09/21/2023 End: 11-29-2024 CT Head WO contrast CT BRAIN WO IVCON Radiology STAT Word finding difficulty New onset of headaches after age 50 1 Occurrences starting 10/31/2023 until 11/29/[address] [facility] Comment on above: 1 Occurrences starting 10/31/2023 until 11/29/2024 End: 08-20-2023 DXA-AXIAL SKELETON DXA-AXIAL SKELETON Radiology Routine Screening for osteoporosis Asymptomatic menopause 1 Occurrences starting 07/21/2022 until 08/20/2023 [facility] Work Phone: Comment on above: 1 Occurrences starting 07/21/2022 until 08/20/2023 End: 08-04-2023 ECG COMPLETE ECG COMPLETE ECG Routine Primary hypertension Palpitations Mixed hyperlipidemia 1 Occurrences starting 08/03/2022 until 08/04/2023 [facility] Work Phone: Comment on above: 1 Occurrences starting 08/03/2022 until 08/04/2023 ECG COMPLETE [facility] Work Phone: Comment on above: Ordered: 04/09/2023 ECG COMPLETE ECG COMPLETE ECG Routine LBBB (left bundle branch block) Presence of cardiac resynchronization therapy defibrillator (AUTOMATION TECH-D) Acute on chronic systolic CHF (congestive heart failure) (HCC) Ordered: 08/07/2023 [facility] Work Phone: Comment on above: Ordered: 08/07/2023 ECG COMPLETE ECG COMPLETE ECG Routine Presence of cardiac resynchronization therapy defibrillator (AUTOMATION TECH-D) Non-ischemic cardiomyopathy (HCC) LBBB (left bundle branch block) Ordered: 11/01/2023 [facility] Work Phone: Comment on above: Ordered: 11/01/2023 ECG COMPLETE ECG COMPLETE ECG Routine Cardiac resynchronization therapy defibrillator (AUTOMATION TECH-D) in place Ordered: 11/03/2024 [facility] Work Phone: Comment on above: Ordered: 11/03/2024 OUTSIDE VENDOR CARDI AC OUTPATIENT EXTENDED RHYTHM RECORDING (WITHOUT TELEMETRY) OUTSIDE VENDOR CARDIAC OUTPATIENT EXTENDED RHYTHM RECORDING (WITHOUT TELEMETRY) Holter Routine Primary hypertension Palpitations Ordered: 08/14/2022 [facility] Work Phone: Comment on above: Ordered: 08/14/2022 OUTSIDE VENDOR CARDI AC OUTPATIENT EXTENDED RHYTHM RECORDING (WITHOUT TELEMETRY) OUTSIDE VENDOR CARDIAC OUTPATIENT EXTENDED RHYTHM RECORDING (WITHOUT TELEMETRY) Holter Routine Cardiac resynchronization therapy defibrillator (AUTOMATION TECH-D) in place Ordered: 11/03/[address] [facility] Comment on above: Ordered: 11/03/2024 Patient Education ED Chest Wall Contusion [facility] Work Phone: SURGICAL PATHOLOGY [facility] Work Phone: Comment on above: Release Upon Ordering for 1 Occurrences starting 12/05/2021, 1 completed UA DIP, URINE (POC) UA DIP, URIN E (POC) Lab Routine Vagina, candidiasis Burning with urination Ordered: 08/22/2023 [facility] Work Phone: Comment on above: Ordered: 08/22/2023 End: 08-07-2025 XR Chest PA and Lateral XR CHEST 2V FRONTAL/LAT Radiology Routine Acute cough 1 Occurrences starting 07/08/2024 until 08/07/[address] [facility] Comment on above: 1 Occurrences starting 07/08/2024 until 08/07/2025 XR Chest PA and Lateral XR CHEST 2V FRONTAL/LAT Radiology Routine Acute cough 07/08/2024 3:31 PM EST [facility] End: 10-23-2024 XR Foot - left AP and Lateral and oblique XR FOOT GENERAL 3V AP/LAT/OBL LEFT Radiology Routine Repetitive stress injury 1 Occurrences starting 09/24/2023 until 10/23/2024 [facility] Work Phone: Comment on above: 1 Occurrences starting 09/24/2023 until 10/23/2024 XR Foot - left AP an d Lateral and oblique XR FOOT GENERAL 3V AP/LAT/OBL LEFT Radiology Routine Repetitive stress injury 09/24/2023 11:15 AM EDT [facility] End: 12-06-2024 XR Lumbar spine 3 Views XR LUMBAR GENERAL 3V AP/LAT/L5-S1 Radiology Routine Acute midline low back pain without sciatica 1 Occurrences starting 11/07/2023 until 12/06/2024 [facility] Work Phone: Comment on above: 1 Occurrences starting 11/07/2023 until 12/06/2024 [facility] Immunizations Immunization Date Immunization Notes Care Provider Fa gideon 07-21-2022 pneumococcal (PCV20) vaccine, 20 valent (PREVNAR 20) Alejandrina Yasir BUSINESS STRATEGY MANAGER.STRATEGIC BUYER Work Phone: [facility] 07-21-2022 pneumococcal Conjuga te, unspecified formulation Alejandrina Yasir BUSINESS STRATEGY MANAGER.STRATEGIC BUYER Work Phone: [facility] Work Phone: 12-29-2020 pneumococcal polysaccharide vaccine, 23 valent Estelita Maradiaga PT Work Phone: [facility] Work Phone: Payers Date Payer Category Payer Self-pay 2013 Private Health Insurance [facility] AARP SUPPLEMENT [id number] 2013-Present [phone] [address] [place] [address] Indemnity [id number] 2013 Private Health Insurance [id number] 2013 Unknown [id number] 2011 Medicare MEDICARE MEDICAR E A AND B [id number] 2011-Present [phone] [address] [address] [place] [address] Medicare [id number] 2011 Medicare [id number] 2011 Medicare [id number] Medicare [id number] Unknown NOLANARE/AKRO [id number] Unknown [id number] Unknown [id number] Unknown [id number] Unknown [id number] Unknown [id number] Unknown [id number] Unknown [id number] Social History Date Type Detail Facility Start: 09-03-2020 End: 11-13-2024 Tobacco smoking status NHIS Ex-smoker [facility] End: 10-22-2002 History of tobacco use Current smoker [facility] End: 10-22-2002 History of tobacco use Cigarette Smoker [facility] Start: 07-01-2021 End: 11-03-2024 Alcohol intake Current non-drinker of alcohol (finding) [facility] Start: 1945 Sex Assigned At Not on file [facility] Start: 03-21-2020 End: 03-10-2022 Exposure to SARS-CoV-2 (event) Not sure [facility] Start: 09-03-2020 End: 01-15-2024 Tobacco use and exposure Smokeless tobacco non-user [facility] Start: 09-27-2022 End: 10-14-2022 History of Social function [facility] Work Phone: Start: 09-27-2022 End: 10-14-2022 Tobacco use panel [facility] Work Phone: Adult Depression Screening Assessment [address] [facility] Work Phone: Has the [employer], Android App Review Source, or water Blood cell Storage threatened to shut off services in your home in past 12Mo No [facility] How hard is it for y ou to pay for the very basics like food, housing, medical care, and heating Not very hard [facility] (I/We) worried paulo er (my/our) food would run out before (I/we) got money to buy more. Never true [facility] Start: 08-29-2023 [facility] Start: 1945 Sex Assigned At Female W [facility] NEGATED: Highlighted row - - [facility] Work Phone: Medical Equipment Procedure Code Equipment Code Equipment Original Text Equipment Identifier Dates Sling Dennis Polypropylene 60x1.1cm Suburethral Transobturator Tape - [id number] Start: 05-24-2020 Icd-[id number] Baltazar lt Xt Hf Quad Paster Supervisor-D [id number] Start: 2023 [id number] Caps urefix Novus [id number] Start: 2023 [id number] Narinder in Stability Quad Mri Surescan [id number] Start: 2023 [id number] Spr int Quattro Secure S [id number] Start: 2023 Goals Date Patient Goal Desired Activity /State Personal health goal Functional Status Date Assessment Result Facility 11-18-2023 Are you deaf, or do you have serious difficulty hearing No 11/18/2023 1:06 PM Lena Holloway, CARO No [facility] 11-18-2023 Are you blind, or do you have serious difficulty seeing, even when wearing glasses No 11/18/2023 1:06 PM Lena Holloway, CARO No [facility] 11-18-2023 Do you have serious difficulty walking or climbing stairs No 11/18/2023 1:06 PM Lena Holloway, CARO No [facility] 11-18-2023 Do you have difficul ty dressing or bathing No 11/18/2023 1:06 PM Lena Holloway, CARO No [facility] 11-18-2023 Because of a physica l, mental, or emotional condition, do you have difficulty doing errands alone such as visiting a physician's office or shopping No 11/18/2023 1:06 PM EDT Lena Lennon RN No [facility] NEGATED: Highlighted row Functional performance Functional status health issues are not documented Disease [facility] [employer] Work Phone: Mental Status Date Assessment Result Facility 11-18-2023 Because of a physical, mental, or emotional condition, do you have serious difficulty concentrating, remembering, or making decisions No 11/18/2023 1:06 PM EDT Lena Lennon RN No [facility] NEGATED: Highlighted row Cognitive function [Interpretation] Cognitive status health issues are not documented Disease [facility] [employer] Work Phone: Clinical Notes 04-27-2020 to 11-13-2024 Note Date & Type Note Facility 11-13-2024 Discharge summary [facility] 11-13-2024 Radiology Diagnostic study note [facility] Imaging Services [address] [place] [address] [id number] Chest without Contrast MR#: [id number] Acct: [id number] Name: SANDRA SCHMITZ Rep #: [id number] : 1945 F 79 From: Julianna Lanza MD PCP: Dr. Mandeep Houser, DO Status: RE G ER Study:Chest without Contrast Date of Exam: 11/13/24 Exam# [id number] Ordering Dr: Mykel Goldberg MD PROCEDURE: CHEST [...] acute finding on noncontrast examination. Reading Location: [id number] CC: Dr. Jose Goldberg MD; Dr. Mandeep Houser DO ~ Income Tax Administrator: Signed [facility] 11-13-2024 Radiology Diagnostic study note [facility] Imaging Services [address] [place] [address] [id number] Brain/Head without Contrast MR#: [id number] Acct: [id number] Name: SANDRA SCHMITZ Rep #: [id number] : 1945 F 79 From: Julianna Lanza MD PCP: Dr. Mandeep Houser DO Status: RE G ER Study:Brain/Head without Contrast Date of Exa m: 11/13/24 Exam# [id number] Ordering Dr: Mykel Goldberg MD EXAM: BRAIN/HEAD [...] Goldberg MD; Dr. Mandeep Houser DO ~ Income Tax Administrator: Signed [facility] 11-13-2024 Radiology Diagnostic study note [facility] Imaging Services [address] [place] [address] Hand Min 3 Views MR#: [id number] Acct: [id number] Name: NADIRSANDRA Rep #: [id number] : 1945 F 79 From: Julianna Lanza MD PCP: Dr. Mandeep Houser DO Status: RE G ER Study:Hand Min 3 Views Date of Exam: 08/05 Exam# [id number] Ordering Dr: Mykel Goldberg MD PROCEDURE: HAND [...] Goldberg MD; Dr. Mandeep Houser DO ~ Income Tax Administrator: Signed [facility] 11-13-2024 Radiology Diagnostic study note [facility] Imaging Services [address] [place], [place] [address] Chest 1 View (Portable) MR#: [id number] Acct: [id number] Name: SANDRA SCHMITZ Rep #: [id number] : 1945 F 79 From: Julianna Lanza MD PCP: Dr. Mandeep Houser DO Status: RE G ER Study:Chest 1 View (Portable) Date of Exam: 11/13/24 Exam# [id number] Ordering Dr: Mykel Goldberg MD PROCEDURE: CHEST 1 VIEW (PORTABLE) 11/13/2024 REASON FOR EXAM: FALL/INJURY CHEST TECHNIQUE: Frontal view of the chest. COMPARISON: Chest radiograph 03/27/2024. FINDINGS: Hardware: Left chest wall pacemaker in place. Heart: Stable mild cardiomegaly. Lungs: Low lung volumes, gbee-[id number]-xbua-right. Visualization of the left lung is limited due to overlying pacemaker. No large consolidation, pleural effusion or pneumothorax. Bones: Degenerative changes are identified within the thoracic spine. RAD/Chest 1 View (Portable) IMPRESSION: Cardiomegaly. No acute findings. Reading Location: [facility] CC: Dr. Jose Goldberg MD; Dr. Mandeep Houser DO ~ Income Tax Administrator: Signed [facility] 11-13-2024 Discharge summary Note Date/Time November 13, 2024 10:33pm [facility] Medical Records Department [address] [place] [id number] Emergency Department Summary 11/13/24 MR#: [id number] Acct: [id number] Name: SANDRA SCHMITZ Rep #:[id number] : 1945 79 From: Jose Goldberg MD [...] anticoagulants but takes a baby aspirin daily. [facility] Medical History Obesity Former tobacco use [...] % (Auto) Cancelled Lymph % (Auto) Cancelled [place] % (Auto) Cancelled Eos % (Auto) Cancelled [...] Drop Cells Cancelled Ovalocytes Cancelled Stomatocytes Cancelled [place] Bodies Cancelled Rocky Cells Cancelled Bite Cells [...] Clarity Clear Urine pH 6.5 Ur Specific [place] 1.010 Urine Protein 15 H Urine Glucose [...] % (Auto) 61.4 Lymph % (Auto) 26.8 [place] % (Auto) 8.8 Eos % (Auto) 1.3 [...] Target Cells Tear Drop Cells Ovalocytes Stomatocytes [place] Bodies Rocky Cells Bite Cells Crenated Cell Acanthocytes (Spur) Rouleaux Schistocytes Sodium Potassium Chloride Carbon Dioxide Anion Gap BUN Creatinine Estim Creat Clear Calc Est GFR (MDRD) Non-Af BUN/Creatinine Ratio Glucose Calcium Urine Color Urine Clarity Urine pH Ur Specific [place] Urine Protein Urine Glucose (UA) Urine Ketones [...] is an option for this. Print Language: Persian Disposition Disposition: Home, Self Care What to do if you have Problems For any increased pain, shortness of breath, bleeding, nausea or vomiting, chestpain, or any unexpected problems, contact your Primary Care Provider. Call [facility] ([phone]) or report to the closest Emergency Room. Call 911 if necessary. 11/13/242232 <Electronically signed by Jose Goldberg MD> Cosigner Signature (if applicable): CC: Dr. Mandeep Houser DO ~ Signed [facility] Work Phone: 1(232) 467-906406-25-2025 NoteHNO ID: [id number] Author: CHASIDY LYN MA Service: ? Author Type: Global Climate Change Analyst Type: Progress Notes Filed: 11/05/2024 14:20 Note [...] Chasidy Lyn MA November 05, 2024 2:18 [facility] History of Present illness Narrative* [...] 05, 2024 2:18 PM documented in this encounter[facility] NotePatient Outreach (NETNAV) SANDRA SCHMITZ ([id number]) 1945 F Date Time Provider Department 11/05/24 [...] Health Navigation Outreach [[id number]] [facility] Prescriptions as of 11/05/2024 - metoprolol [...] right [M19.071] 08/02/2022 Coronary artery disease involving [place] lopez*08/02/2022 Vitamin D deficiency [E55.9] 08/02/2022 Somatic dysfunction of head region [M99.00] 08/10/2022 Chronic neck pain [M54.2, G89.29] 08/24/2022 Chronic bronchitis (HCC) [J42] 09/11/2022 SVT (suprave (more content not included)...[facility]06-23-2025 NoteHNO ID: [id number] Author: DILCIA HOOKS MA Service: ? Author Type: Global Climate Change Analyst Type: Progress Notes Filed: 11/03/2024 15:58 Note Text: EVENT MONITOR DISPOSABLE PATCH INSTRUCTIONS Patient Name: Sandra Schmitz [facility] Number: [id number] Skin prepped and cleansed with alcohol Patch secured to prepped area Monitor Activated Serial #: [id number] Patient Instructed: Prescribed order timeframe Bathing guidelines Usage of event button and diary documentation Return of monitor at the end of prescribed order Call with problems [phone] or [phone]. [phone] Patient expresses a good understanding of instructions Dilcia Hooks [facility]06-23-2025 History of Present illness Narrative* Dilcia Hooks MA - 11/03/2024 3:57 PM EDT EVENT MONITOR DISPOSABLE PATCH INSTRUCTIONS Patient Name: Sandra Schmitz [facility] Number: [id number] Skin prepped and cleansed with alcohol Patch secured to prepped area Monitor Activated Serial #: [id number] Patient Instructed: Prescribed order timeframe Bathing guidelines Usage of event button and diary documentation Return of monitor at the end of prescribed order Call with problems [phone] or [phone]. [phone] Patient expresses a good understanding of instructions Dilcia Hooks MA documented in this encounter[facility] History of Present illness Narrative* HillMorenita youMELI.STRATEGIC BUYER - 11/03/2024 3:30 PM EDT Images from the original note were not included. [facility] Department of Cardiovascular Medicine SECTION OF ELECTROPHYSIOLOGY AND PACING OUTPATIENT VISIT DATE November 03, 2024 OUTPATIENT VISIT TYPE ESTABLISHED PRIMARY CARE PHYSICIAN: Mandeep Houser [address] [place] [address] CHIEF COMPLAINT: Follow Up HISTORY OF PRESENT ILLNESS: Ms. Schmitz is a 79 year old female, patient of Dr. Wellington and Dr. Wells who presents today for a cardiovascular medicine follow-up visit regarding AUTOMATION TECH-D which was placed in July of last year during which time she had been admitted to [facility] for acute HFrEF and inability to initiate GDMT. She was deemed excellent candidate for AUTOMATION TECH therapy and thus had MDT AUTOMATION TECH-D inserted. Since then, Ms. Schmitz reports that overall she has been feeling well. She has noted over the last several months that when shh is anxious or rushing, she may feel her heart racing with some palpitations. When she rests, symptoms resolve. Overall, since device insertion, she has significantly improved functional capacity. She is compliant with all medications. PMH: Chronic NICM s/p MDT AUTOMATION TECH-D, dyslipidemia, hypothyroidism, Factor V Leiden, IBS, h/o gout PAST MEDICAL HISTORY Diagnosis Date Acute acalculous cholecystitis 05/30/2020 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 09/22/2020 Acute on chronic systolic CHF (congestive heart failure) ([facility]) 05/03/2020 Aspiration pneumonia ([facility]) 05/30/2020 Chest pain 05/03/2020 Chest pressure 01/23/2013 [...] Testing. IMPRESSION/PLAN: Chronic Non-ischemic cardiomyopathy s/p MDT AUTOMATION TECH-D (07/2023) ECG today demonstrates atrial sensed, ventricular [...] SGL2i: N/A due to intolerance Device: MDT AUTOMATION TECH-D (BiV pacing 87.1%) Will contact patient with results and plan. Will arrange for 6 month follow up with DR. Wellington withdevice check prior. If BiVP is optimized, then can extend to annual follow up. CONTACT INFORMATION: Morenita Hill APRN.TIM Cardiology [address] [facility] [address] [facility] [address] Dept: [phone] Dept documented in this encounterMer[facility]06-[facility]-2025 NoteHNO ID: [id number] Author: MORENITA HILL APRN.TIM Service: ? Author Type: Nurse Practitioner Type: Progress Notes Filed: 11/03/2024 15:59 Note Text: [facility] Department of Cardiovascular Medicine SECTION OF ELECTROPHYSIOLOGY AND PACING OUTPATIENT VISIT DATE November 03, 2024 OUTPATIENT VISIT TYPE ESTABLISHED PRIMARY CARE PHYSICIAN: Mandeep Houser [address] [place] [address] CHIEF COMPLAINT: Follow Up HISTORY OF PRESENT ILLNESS: Ms. Schmitz is a 79 year old female, patient of Dr. Wellington and Dr. Wells who presents today for a cardiovascular medicine follow-up visit regarding AUTOMATION TECH-D which was placed in July of last year during which time she had been admitted to [facility] for acute HFrEF and inability to initiate GDMT. She was deemed excellent candidate for AUTOMATION TECH therapy and thus had MDT AUTOMATION TECH-D inserted. Since then, Ms. Schmitz reports that overall she has been feeling well. She has noted over the last several months that when shh is anxious or rushing, she may feel her heart racing with some palpitations. When she rests, symptoms resolve. Overall, since device insertion, she has significantly improved functional capacity. She is compliant with all medications. PMH: Chronic NICM s/p MDT AUTOMATION TECH-D, dyslipidemia, hypothyroidism, Factor V Leiden, IBS, h/o gout PAST MEDICAL HISTORY Diagnosis Date Acute acalculous cholecystitis 05/30/2020 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 09/22/2020 Acute on chronic systolic CHF (congestive heart failure) ([facility]) 05/03/2020 Aspiration pneumonia ([facility]) 05/30/2020 Chest pain 05/03/2020 Chest pressure 01/23/2013 Chronic diastolic congestive heart failure ([facility]) 02/14/2021 Clostridium difficile diarrhea 09/28/2020 Complete uterovaginal prolapse Cystocele, midline Essential hypertension 06/14/2020 Homozygous Factor V Leiden mutation ([facility]) 05/03/2020 Hypothyroidism IBS (irritable bowel syndrome) 01/23/2013 [...] capsule by mouth thre (more content not included)...[facility]06-23-2025 NoteHNO ID: [id number] Author: PILI WELLS MD Service: ? Author Type: Physician Type: Progress Notes Filed: 11/09/2024 17:30 Note Text: [facility] SECTION OF HEART FAILURE and CARDIAC TRANSPLANT MEDICINE [facility] OUTPATIENT VISIT DATE November 03, 2024 OUTPATIENT VISIT TYPE Established PRIMARY CARE PHYSICIAN: Mandeep Houser [address] [place] [address] CHIEF COMPLAINT: Follow Up HISTORY OF PRESENT ILLNESS: Sandra Schmitz is a 78 year old female with a medical history that includes non-ischemic CM, HTN, Hypothyroidism, LBBB s/p AUTOMATION TECH-D who is referred to me for heart failure management. Sandra Schmitz was initially diagnosed with non-ischemic CM ~ 4 yrs ago and was doing well on losartan and metoprolol. She had progressive sxs of dyspnea on exertion, therefore she was started on entresto and farxiga and her sxs persisted and she was admitted locally in [place] and then transferred to for AUTOMATION TECH consideration. Interval History: Sandra Schmitz was last [...] LVEF 40%, LVEdd 4.8cm. LBBB: chronic. S/p AUTOMATION TECH 07/2023 Non-obstructive CAD: stable, ischemic testing recently [...] pressure 01/23/2013 Chronic diastolic congestive heart failure ([facility]) 02/14/2021 Clostridium difficile diarrhea 09/28/2020 Complete uterovaginal [...] Short of breath, sympto (more content not included)...[facility] 11-03-2024 History of Present illness Narrative* Pili Wells MD - 11/03/2024 2:17 PM EDT Images from the original note were not included. [facility] SECTION OF HEART FAILURE and CARDIAC TRANSPLANT MEDICINE [facility] OUTPATIENT VISIT DATE November 03, 2024 OUTPATIENT VISIT TYPE Established PRIMARY CARE PHYSICIAN: Mandeep Houser [address] [place] [address] CHIEF COMPLAINT: Follow Up HISTORY OF PRESENT ILLNESS: Sandra Schmitz is a 78 year old female with a medical history that includes non-ischemic CM, HTN, Hypothyroidism, LBBB s/p AUTOMATION TECH-D who is referred to me for heart failure management. Sandra Schmitz was initially diagnosed with non-ischemic CM ~ 4 yrs ago and was doing well on losartan and metoprolol. She had progressive sxs of dyspnea on exertion, therefore she was started on entresto and farxiga and her sxs persisted and she was admitted locally in [place] and then transferredto for AUTOMATION TECH consideration. Interval History: Sandra Schmitz was last [...] LVEF 40%, LVEdd 4.8cm. LBBB: chronic. S/p AUTOMATION TECH 07/2023 Non-obstructive CAD: stable, ischemic testing recently with no ischemia or infarction. 06/2023 Nuc SPECT: no ischemia or infarction. 10/2021 Cath: mod LAD, D1 prox 40%, mild RCA disease dominant, EF 35%. Hx of HTN: PAST MEDICAL HISTORY Diagnosis Date Acute acalculous cholecystitis 05/30/2020 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 09/22/2020 Acute on chronic systolic CHF (congestive heart failure) ([facility]) 05/03/2020 Aspiration pneumonia ([facility]) 05/30/2020 Chest pain 05/03/2020 Chest pressure 01/23/2013 Chronic diastolic congestive heart failure ([facility]) 02/14/2021 Clostridium difficile diarrhea 09/28/2020 Complete uterovaginal prolapse Cystocele, midline Essential hypertension 06/14/2020 Homozygous Factor V Leiden mutation ([facility]) 05/03/2020 Hypothyroidism IBS (irritable bowel syndrome) 01/23/2013 [...] to tingling/BADILLO - Vasodilators: no - Device: AUTOMATION TECH-D - Cardiomems: no - Other: lasix 20mg [...] above. Continues to report symptomatic improvement with AUTOMATION TECH. Echo 08/2023 reviewed - LVEF remains low, LV not as dilated, MR improved as well. + LVH GDMT: as above, increase toprol XL to 50mg daily Labs 07/08/24 reviewed: K 4.9, Cr 0.85, NT pro 2.1K Due to suboptimal AUTOMATION TECH pacing increase toprol XL to 50mg daily --> seeing EP after this appointment. Discussed amyloid testing as well --> she doesn't wish to pursue currently 2. Non-obsctructive CAD: on aspirin and toprol as above On aspirin 81mg daily, not on statin - reports intolerance. 3. PVCs; LBBB s/p AUTOMATION TECH-D -- suboptimal AUTOMATION TECH pacing: increasing toprol XL given PVCs on [...] Wells MD [facility] [place] [address] Appointment: [phone] documented in [address] encounterMer[facility]06-[facility]-2025 Instructions* Patient Instructions* Pili Wells MD [...] and weight daily. Please notify us via [employer] if your Systolic BP (top number) < [...] heart kidney injury risk Please send a [employer] message or call with any questions or concerns: Outpatient Number: [phone] Thank you, Pili Wells MD Advanced Heart Failure [facility] Transplant [facility] [address], [place] [address] For [facility] patients , contact: [facility]- Section Of Heart Failure and Cardiac Transplant Medicine [facility] - Desk [phone] [phone] [facility] Nurse Line and for Refills- call [phone] [facility] Scheduling Line- to make appointments- call [phone] documented in [address] encounterMer[facility]06-10-2025 NoteHNO ID: [id number] Author: MANDEEP HOUSER, DO Service: ? Author [...] on chronic systolic CHF (congestive heart failure) ([facility]) 05/03/2020 Aspiration pneumonia ([facility]) 05/30/2020 Chest pain 05/03/2020 Chest pressure 01/23/2013 Chronic diastolic congestive heart failure ([facility]) 02/14/2021 Clostridium difficile diarrhea 09/28/2020 Complete uterovaginal prolapse Cystocele, midline Essential hypertension 06/14/2020 Homozygous Factor V Leiden mutation ([facility]) 05/03/2020 Hypothyroidism IBS (irritable bowel syndrome) 01/23/2013 [...] right head, [id number] Right (more content not included)...[facility]06-10-2025 History of Present illness Narrative* Mandeep Houser, [...] on chronic systolic CHF (congestive heart failure) ([facility]) 05/03/2020 Aspiration pneumonia ([facility]) 05/30/2020 Chest pain 05/03/2020 Chest pressure 01/23/2013 Chronic diastolic congestive heart failure ([facility]) 02/14/2021 Clostridium difficile diarrhea 09/28/2020 Complete uterovaginal prolapse Cystocele, midline Essential hypertension 06/14/2020 Homozygous Factor V Leiden mutation ([facility]) 05/03/2020 Hypothyroidism IBS (irritable bowel syndrome) 01/23/2013 [...] plan. See patient instructions. Mandeep Houser DO [address] [place] [address] documented in [address] [facility]05-[facility]-2025 NoteHNO ID: [id number] Author: MANDEEP HOUSER DO Service: ? Author [...] on chronic systolic CHF (congestive heart failure) ([facility]) 05/03/2020 Aspiration pneumonia ([facility]) 05/30/2020 Chest pain 05/03/2020 Chest pressure 01/23/2013 Chronic diastolic congestive heart failure ([facility]) 02/14/2021 Clostridium difficile diarrhea 09/28/2020 Complete uterovaginal prolapse Cystocele, midline Essential hypertension 06/14/2020 Homozygous Factor V Leiden mutation ([facility]) 05/03/2020 Hypothyroidism IBS (irritable bowel syndrome) 01/23/2013 [...] leg Right lower leg (more content not included)...[facility] 09-15-2024 NoteHNO ID: [id number] Author: DORINDA YOUNG MA Service: ? Author Type: Global Climate Change Analyst Type: Progress Notes Filed: 09/15/2024 12:40 Note Text: POPULATION HEALTH NAVIGATION OUTREACH Action/FYI Called and left a message to call [phone], to discuss health maintenance items that are [...] Dorinda Young MA September 15, 2024 12:39 [facility]05-05-2025 History of Present illness Narrative* Dorinda Young MA - 09/15/2024 12:39 PM EDT POPULATION HEALTH NAVIGATION OUTREACH Action/FYI Called and left a message to call [phone], to discuss health maintenance items that are [...] 15, 2024 12:39 PM documented in this encounterMer[facility]05-[facility]-2025 NotePatient Outreach (NETNAV) SANDRA SCHMITZ ([id number]) 1945 F Date Time Provider Department 09/15/24 DORINDA YOUNG During your visit today, we recorded the following information about you: Dorinda Young MA 09/15/2024 12:40 PM Addendum POPULATION HEALTH NAVIGATION OUTREACH Action/MARIVEL Called and left a message to call [phone], to discuss health maintenance items that are [...] right [M19.071] 08/02/2022 Coronary artery disease involving [place]*08/02/2022 Vitamin D deficiency [E55.9] 08/02/2022 Somatic dysfunction of head region [M99.00] 08/10/2022 Chronic neck pain [M54.2, G89.29] 08/24/2022 Chronic bronchitis (HCC) [J42] 09/11/2022 SVT (supraventricular tachycardia) (HCC) [I47.1*09/11/2022 Combined systolic and diastolic cardi (more content not included)...[facility]04-17-2025 NoteHNO ID: [id number] Author: MANDEEP HOUSER, DO Service: ? Author [...] on chronic systolic CHF (congestive heart failure) ([facility]) 05/03/2020 Aspiration pneumonia ([facility]) 05/30/2020 Chest pain 05/03/2020 Chest pressure 01/23/2013 Chronic diastolic congestive heart failure ([facility]) 02/14/2021 Clostridium difficile diarrhea 09/28/2020 Complete uterovaginal prolapse Cystocele, midline Essential hypertension 06/14/2020 Homozygous Factor V Leiden mutation ([facility]) 05/03/2020 Hypothyroidism IBS (irritable bowel syndrome) 01/23/2013 [...] ankle arthrosis bracing ASSESSMENT/PLAN: (more content not included)...[facility]04-17-2025 History of Present illness Narrative* Mandeep Houser, [...] on chronic systolic CHF (congestive heart failure) ([facility]) 05/03/2020 Aspiration pneumonia ([facility]) 05/30/2020 Chest pain 05/03/2020 Chest pressure 01/23/2013 Chronic diastolic congestive heart failure (HCC) 02/14/2021 Clostridium difficile diarrhea 09/28/2020 Complete uterovaginal prolapse Cystocele, midline Essential hypertension 06/14/2020 Homozygous Factor V Leiden mutation ([facility]) 05/03/2020 Hypothyroidism IBS (irritable bowel syndrome) 01/23/2013 [...] See patient instructions. Mandeep Houser DO [address] [place] [address] documented in [address] encounterMer[facility]04[facility] Miscellaneous Notes* Telephone Encounter - Radha Buchanan - 08/27/2024 10:22 AM EDT Call to patient to r/s. Patient is driving out from [place] and would prefer all appointments same day as Dr. Wells. Rescheduled to Friday 11/03 with device check, OV with Morenita Hill and Dr. Wells. * Telephone Encounter - Radha Buchanan - 08/27/2024 10:21 AM EDT ----- Message from Dilcia Bonilla MD sent at 08/23/2024 9:30 AM EDT ----- I saw her in '24 Please reschedule with Mercedes + device documented in this encounterMer[facility]04[facility] Telephone encounter Note * Telephone Encounter - Radha Buchanan - 08/27/2024 10:22 AM EDT Call to patient to r/s. Patient is driving out from [place] and would prefer all appointments same day as Dr. Wells. Rescheduled to Friday 11/03 with device check, OV with Morenita Hill and Dr. Wells. [facility]04-16-2025 Telephone encounter Note* Telephone Encounter - Radha Buchanan - 08/27/2024 10:21 AM EDT ----- Message from Dilcia Bonilla MD sent at 08/23/2024 9:30 AM EDT ----- I saw her in '24 Please reschedule with Mercedes + device [facility]04-14-2025 Instructions* Patient Instructions* Mandeep Houser DO - 08/25/2024 4:32 PM EDT Magnesium glycinate 250-500 mg in the evening with supper Use as a capsule or powder or tablet To help muscles documented in this encounterMercy Health St. [facility]03-25-2025 NoteHNO ID: [id number] Author: MANDEEP HOUSER DO Service: ? Author [...] pain - ICD (more content not included)... [facility]03-25-2025 History of Present illness Narrative* Mandeep Houser, [...] on chronic systolic CHF (congestive heart failure) ([facility]) 05/03/2020 Aspiration pneumonia ([facility]) 05/30/2020 Chest pain 05/03/2020 Chest pressure 01/23/2013 Chronic diastolic congestive heart failure ([facility]) 02/14/2021 Clostridium difficile diarrhea 09/28/2020 Complete uterovaginal prolapse Cystocele, midline Essential hypertension 06/14/2020 Homozygous Factor V Leiden mutation ([facility]) 05/03/2020 Hypothyroidism IBS (irritable bowel syndrome) 01/23/2013 [...] See patient instructions. Mandeep Houser DO [address] [place] [address] documented in [address]Mer[address]03-10-2025 NoteHNO ID: [id number] Author: MANDEEP HOUSER DO Service: ? Author [...] October Would like to have her medical silver buffer more local for better accessibility She had labs and a chest xray Currently Cough, chest congestion, symptoms are improved. Just still with some fatigue but seems to be getting better. No further cough, no sputum production, no fevers or chills. Heart failure. Has an echo to get scheduled and completed for the silver buffer, taking her medications as prescribed. PAST MEDICAL HISTORY Diagnosis Date Acute acalculous cholecystitis 05/30/2020 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 09/22/2020 Acute on chronic systolic CHF (congestive heart failure) ([facility]) 05/03/2020 Aspiration pneumonia ([facility]) 05/30/2020 Chest pain 05/03/2020 Chest pressure 01/23/2013 Chronic diastolic congestive heart failure ([facility]) 02/14/2021 Clostridium difficile diarrhea 09/28/2020 Complete uterovaginal prolapse Cystocele, midline Essential hypertension 06/14/2020 Homozygous Factor V Leiden mutation ([facility]) 05/03/2020 Hypothyroidism IBS (irritable bowel syndrome) 01/23/2013 [...] EOMs intact b/l, na (more content not included)...[facility]03-10-2025 History of Present illness Narrative* Mandeep Houser, [...] October Would like to have her medical silver buffer more local for better accessibility She had labs and a chest xray Currently Cough, chest congestion, symptoms are improved. Just still with some fatigue but seems to be getting better. No further cough, no sputum production, no fevers or chills. Heart failure. Has an echo to get scheduled and completed for the silver buffer, taking her medications as prescribed. PAST MEDICAL HISTORY Diagnosis Date Acute acalculous cholecystitis 05/30/2020 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 09/22/2020 Acute on chronic systolic CHF (congestive heart failure) ([facility]) 05/03/2020 Aspiration pneumonia (HCC) 05/30/2020 Chest pain [...] 428.0, ICD10: I50.42 - chronic, managed by Swage Tender 7. Vitamin D deficiency - ICD9: 268.9, ICD10: E55.9 Increase dose of supplement as d/w her today Mandeep Houser DO Return if no improvement. Follow up with Mandeep Houser DO. To ER if develops chest pain, shortness of breath. Discussed risks, benefits, alternatives, and potential side effects of medications. Patient/Guardian expressed understanding and agreed with the plan. See patient instructions. Mandeep Houser DO [address] [place] [address] documented in [address] encounterMer[address] [facility] St. [facility]02-25-2025 History of Present illness Narrative* Boone [...] PATIENT PRESENTS WITH AN IMPLANTABLE OR ATTACHED COTTON CLEANER: No RADIOLOGY DEPARTMENT: General X-ray: Exam(s) Completed: Chest X-Ray PERIPHERAL IV DATA: Not applicable SIGNED BY: Marino Arevalo July 08, 2024 3:31 PM documented in this encounterMercy Health St. [facility]02-25-2025 NoteHNO ID: [id number] Author: BOONE NEUMANN Tech Service: ? Author [...] PATIENT PRESENTS WITH AN IMPLANTABLE OR ATTACHED COTTON CLEANER: No RADIOLOGY DEPARTMENT: General X-ray: Exam(s) Completed: Chest X-Ray PERIPHERAL IV DATA: Not applicable SIGNED BY: Marino Arevalo July 08, 2024 3:31 [facility]02-25-2025 NoteHNO ID: [id number] Author: MANDEEP HOUSER, DO Service: ? Author [...] October Would like to have her medical silver buffer more local for better accessibility PAST MEDICAL HISTORY Diagnosis Date Acute acalculous cholecystitis 05/30/2020 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 09/22/2020 Acute on chronic systolic CHF (congestive heart failure) ([facility]) 05/03/2020 Aspiration pneumonia ([facility]) 05/30/2020 Chest pain 05/03/2020 Chest pressure 01/23/2013 Chronic diastolic congestive heart failure (HCC) 02/14/2021 Clostridium difficile diarrhea 09/28/2020 Complete uterovaginal prolapse Cystocele, midline Essential hypertension 06/14/2020 Homozygous Factor V Leiden mutation ([facility]) 05/03/2020 Hypothyroidism IBS (irritable bowel syndrome) 01/23/2013 [...] (primary diagnosis) Injection o (more content not included)...[facility]02-25-20[facility] History of Present illness Narrative* Mandeep Houser, [...] October Would like to have her medical silver buffer more local for better accessibility PAST MEDICAL HISTORY Diagnosis Date Acute acalculous cholecystitis 05/30/2020 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 09/22/2020 Acute on chronic systolic CHF (congestive heart failure) ([facility]) 05/03/2020 Aspiration pneumonia ([facility]) 05/30/2020 Chest pain 05/03/2020 Chest pressure 01/23/2013 Chronic diastolic congestive heart failure ([facility]) 02/14/2021 Clostridium difficile diarrhea 09/28/2020 Complete uterovaginal prolapse Cystocele, midline Essential hypertension 06/14/2020 Homozygous Factor V Leiden mutation ([facility]) 05/03/2020 Hypothyroidism IBS (irritable bowel syndrome) 01/23/2013 [...] chronic, recheck labs Check CXR F/u with Swage Tender - NT PRO BNP - COMPLETE BLOOD [...] plan. See patient instructions. Mandeep Houser DO [address] [place] [address] documented in [address] encounterMer[address] [facility]02-25-2025 Instructions* Patient Instructions* Mandeep Houser DO - 07/08/2024 2:50 PM EST Swage Tender local options Dr.Sleik Dr. [place]s Options for mood Low dose of valerian root 250-500 mg in the evening Light box therapy consideration of light at 10,000 Lux strength- 20-30 minutes a day in the AM fromFeb through August to help mood, can buy this on [employer] for use documented in this encounterMercy Health St. [facility]02-18-2025 Telephone encounter Note * Telephone Encounter - Mandeep Houser DO - 07/01/2024 12:19 PM EST The following approved medication requests have been transmitted electronically. Requested Prescriptions Signed Prescriptions Disp Refills doxycycline (VIBRA-TABS) 100 mg tablet 20 tablet 0 Sig: Take 1 tablet by mouth two times a day for 10 days. Authorizing Provider: MANDEEP HOUSER DO [facility]02-18-2025 Miscellaneous Notes* Telephone Encounter - Mandeep Houser DO - 07/01/2024 12:19 PM EST The following approved medication requests have been transmitted electronically. Requested Prescriptions Signed Prescriptions Disp Refills doxycycline (VIBRA-TABS) 100 mg tablet 20 tablet 0 Sig: Take 1 tablet by mouth two times a day for 10 days. Authorizing Provider: MANDEEP HOUSER DO documented in this encounterMercy Health St. [facility]02-07-2025 NoteHNO ID: [id number] Author: MANDEEP HOUSER DO Service: ? Author [...] on chronic systolic CHF (congestive heart failure) ([facility]) 05/03/2020 Aspiration pneumonia ([facility]) 05/30/2020 Chest pain 05/03/2020 Chest pressure 01/23/2013 Chronic diastolic congestive heart failure (HCC) 02/14/2021 Clostridium difficile diarrhea 09/28/2020 Complete uterovaginal prolapse Cystocele, midline Essential hypertension 06/14/2020 Homozygous Factor V Leiden mutation ([facility]) 05/03/2020 Hypothyroidism IBS (irritable bowel syndrome) 01/23/2013 [...] pain - ICD (more content not included)... [facility]02-07-2025 History of Present illness Narrative* Mandeep Houser, [...] on chronic systolic CHF (congestive heart failure) ([facility]) 05/03/2020 Aspiration pneumonia ([facility]) 05/30/2020 Chest pain 05/03/2020 Chest pressure 01/23/2013 Chronic diastolic congestive heart failure ([facility]) 02/14/2021 Clostridium difficile diarrhea 09/28/2020 Complete uterovaginal [...] plan. See patient instructions. Mandeep Houser DO [address] [place] [address] documented in [address] encounterMer[address]01-17-2025 NoteHNO ID: [id number] Author: MANDEEP HOUSER DO Service: ? Author [...] pressure 01/23/2013 Chronic diastolic congestive heart failure ([facility]) 02/14/2021 Clostridium difficile diarrhea 09/28/2020 Complete uterovaginal prolapse Cystocele, midline Essential hypertension 06/14/2020 Homozygous Factor V Leiden mutation ([facility]) 05/03/2020 Hypothyroidism IBS (irritable bowel syndrome) 01/23/2013 [...] neurovascular tone of ar (more content not included)...[facility]01-17-2025 History of Present illness Narrative* Mandeep Houser, [...] on chronic systolic CHF (congestive heart failure) ([facility]) 05/03/2020 Aspiration pneumonia ([facility]) 05/30/2020 Chest pain 05/03/2020 Chest pressure 01/23/2013 Chronic diastolic congestive heart failure ([facility]) 02/14/2021 Clostridium difficile diarrhea 09/28/2020 Complete uterovaginal prolapse Cystocele, midline Essential hypertension 06/14/2020 Homozygous Factor V Leiden mutation ([facility]) 05/03/2020 Hypothyroidism IBS (irritable bowel syndrome) 01/23/2013 [...] plan. See patient instructions. Mandeep Houser DO [address] [place] [address] documented in [address] encounterMer[address] [facility]12-30-2024 NoteHNO ID: [id number] Author: MANDEEP HOUSER DO Service: ? Author [...] on chronic systolic CHF (congestive heart failure) ([facility]) 05/03/2020 Aspiration pneumonia ([facility]) 05/30/2020 Chest pain 05/03/2020 Chest pressure 01/23/2013 Chronic diastolic congestive heart failure ([facility]) 02/14/2021 Clostridium difficile diarrhea 09/28/2020 Complete uterovaginal prolapse Cystocele, midline Essential hypertension 06/14/2020 Homozygous Factor V Leiden mutation ([facility]) 05/03/2020 Hypothyroidism IBS (irritable bowel syndrome) 01/23/2013 [...] - ICD9: 724.1, 338.29, (more content not included)...[facility]12-30-[facility] History of Present illness Narrative* Mandeep Houser, [...] on chronic systolic CHF (congestive heart failure) ([facility]) 05/03/2020 Aspiration pneumonia ([facility]) 05/30/2020 Chest pain 05/03/2020 Chest pressure 01/23/2013 Chronic diastolic congestive heart failure ([facility]) 02/14/2021 Clostridium difficile diarrhea 09/28/2020 Complete uterovaginal prolapse Cystocele, midline Essential hypertension 06/14/2020 Homozygous Factor V Leiden mutation ([facility]) 05/03/2020 Hypothyroidism IBS (irritable bowel syndrome) 01/23/2013 [...] See patient instructions. Mandeep Houser DO [address] [place] [address] documented in [address]Mer[address] [facility]12-10-2024 NoteHNO ID: [id number] Author: MANDEEP HOUSER DO Service: ? Author [...] on chronic systolic CHF (congestive heart failure) ([facility]) 05/03/2020 Aspiration pneumonia ([facility]) 05/30/2020 Chest pain 05/03/2020 Chest pressure 01/23/2013 [...] fullness right head, C3-5 (more content not included)...[facility]12-10-2024 History of Present illness Narrative* Mandeep Houser, [...] on chronic systolic CHF (congestive heart failure) ([facility]) 05/03/2020 Aspiration pneumonia ([facility]) 05/30/2020 Chest pain 05/03/2020 Chest pressure 01/23/2013 Chronic diastolic congestive heart failure ([facility]) 02/14/2021 Clostridium difficile diarrhea 09/28/2020 Complete uterovaginal prolapse Cystocele, midline Essential hypertension 06/14/2020 Homozygous Factor V Leiden mutation ([facility]) 05/03/2020 Hypothyroidism IBS (irritable bowel syndrome) 01/23/2013 [...] See patient instructions. Mandeep Houser DO [address] [place] [address] documented in [address] encounterMer[facility]11-26-2024 Telephone encounter Note * Telephone Encounter [...] Pennington LPN April 08, 2024 9:[address] [facility]11-26-2024 Miscellaneous Notes* Telephone Encounter - Mane [...] 08, 2024 9:26 AM documented in this encounterMercy Health St. [facility]11-11-2024 Telephone encounter Note * Telephone Encounter - Phyllis Levin MA - 03/24/2024 9:51 AM EST Pt notified. Phyllis Levin MA [facility]11-11-2024 Miscellaneous Notes* Telephone Encounter - Phyllis [...] can send the Rx? documented in this encounterMercy Health St. [facility]11-08-2024 Telephone encounter Note * Telephone Encounter - Mandeep Houser DO - 03/21/2024 5:06 PM EST The following approved medication requests have been transmitted electronically. Requested Prescriptions Signed Prescriptions Disp Refills doxycycline (VIBRA-TABS) 100 mg tablet 20 tablet 0 Sig: Take 1 tablet by mouth two times a day for 10 days. Authorizing Provider: MANDEEP HOUSER DO [facility]11-08-2024 Telephone encounter Note* Telephone Encounter - Sanjeev Carpio RN - 03/21/2024 11:15 AM EST Patient reports she saw pcp on 03-18-24 for OMT. Reports pcp was going to call in AB to Amparowally Black, for her scratchy throat, sinus drainage, pt could take if the s/s continue. Reports Joanna Cleaning never recv'd the Rx. Asking if pcp can send the Rx? [facility]10-24-2024 Telephone encounter Note* Telephone Encounter - Sanjeev Carpio RN - 03/06/2024 2:23 PM EDT Pt returned call and given provider's message below with verbalized understanding. [facility]10-24-2024 Miscellaneous Notes* Telephone Encounter - Sanjeev Carpio RN - 03/06/2024 2:23 PM EDT Pt returned call and given provider's message below with verbalized understanding. * Telephone Encounter - Meena Borwn LPN - 03/06/2024 10:20 AM EDT Left message to return call. * Telephone Encounter - Mandeep Houser DO - 03/05/2024 10:33 PM EDT Please call patient and let her know that her recent thyroid labs are all stable Mandeep Houser DO documented in this encounterMercy Health St. [facility]10-24-2024 Telephone encounter Note * Telephone Encounter - Meena Brown LPN - 03/06/2024 10:20 AM EDT Left message to return call. [facility]10-23-2024 Telephone encounter Note* Telephone Encounter - Mandeep Houser DO - 03/05/2024 10:33 PM EDT Please call patient and let her know that her recent thyroid labs are all stable Mandeep Houser DO [facility]10-01-2024 NoteHNO ID: [id number] Author: MANDEEP HOUSER DO Service: ? Author [...] ICD10: E03.9 (primary diagnos (more content not included)...[facility]10-[facility] History of Present illness Narrative* Mandeep Houser, [...] on chronic systolic CHF (congestive heart failure) ([facility]) 05/03/2020 Aspiration pneumonia ([facility]) 05/30/2020 Chest pain 05/03/2020 Chest pressure 01/23/2013 Chronic diastolic congestive heart failure ([facility]) 02/14/2021 Clostridium difficile diarrhea 09/28/2020 Complete uterovaginal prolapse Cystocele, midline Essential hypertension 06/14/2020 Homozygous Factor V Leiden mutation ([facility]) 05/03/2020 Hypothyroidism IBS (irritable bowel syndrome) 01/23/2013 [...] plan. See patient instructions. Mandeep Houser DO [address] [place] [address] documented in [address] encounterMer[address] [facility]09-26-2024 NoteHNO ID: [id number] Author: ANGEL CASTRO DO Service: ? Author Type: Physician Type: Progress Notes Filed: 02/07/2024 14:40 Note Text: [facility] [place] [facility] Department of Cardiovascular Medicine SECTION OF [facility] OUTPATIENT VISIT DATE February 07, 2024 OUTPATIENT VISIT TYPE ESTABLISHED PATIENT Name: Sandra Schmitz : 1945 Date: February 07, 2024 PRIMARY CARE PHYSICIAN: Mandeep Houser [address] [place] [address] REFERRING PHYSICIAN: No referring provider defined for this encounter. CHIEF COMPLAINT: Patient presents with: CARD Follow Up 3 Month: PMH: non-ischemic CM, HTN, Hypothyroidism, LBBB s/p AUTOMATION TECH-D IMPRESSION / PLAN: Severe nonischemic cardiomyopathy status post AUTOMATION TECH-D in July 2023. - [facility] 10/2021: mod LAD, D1 prox 40%, mild [...] breath or increasing abdominal girth. - s/p AUTOMATION TECH-D 07/16/23 at [facility] - Follows with advanced heart failure, - Follows with EPDr. [place] and continue follow-up in the device clinic Left bundle branch block - s/p AUTOMATION TECH-D 07/16/23 at [facility] - Follows with EP, Dr. Wellington Nonobstructive coronary artery disease - [facility] 10/2021: mod LAD, D1 prox 40%, mild [...] an ejection fraction of 23% status post AUTOMATION TECH-D in July 2023, hypertension and factor V [...] on chronic systolic CHF (congestive heart failure) ([facility]) 05/03/2020 Aspiration pneumonia ([facility]) 05/30/2020 Chest pain 05/03/2020 Chest pressure 01/23/2013 Chronic diastolic congestive heart failure ([facility]) 02/14/2021 Clostridium difficile diarrhea 09/28/2020 Complete uterovaginal prolapse Cystocele, midline Essential hypertension 06/14/2020 Homozygous Factor V Leiden mutation ([facility]) 05/03/2020 Hypothyroidism IBS (irritable bowel syndrome) 01/23/2013 [...] Relation Age of Onset (more content not included)...[facility]09[facility] History of Present illness Narrative* Angel Castro, DO - 02/07/2024 2:02 PM EDT Images from the original note were not included. [facility] [place] [facility] Department of Cardiovascular Medicine [facility] OUTPATIENT VISIT DATE February 07, 2024 OUTPATIENT VISIT TYPE ESTABLISHED PATIENT Name: Sandra Schmitz : 1945 Date: February 07, 2024 PRIMARY CARE PHYSICIAN: Mandeep Houser [address] [place] [address] REFERRING PHYSICIAN: No referring provider defined for this encounter. CHIEF COMPLAINT: Patient presents with: CARD Follow Up 3 Month: PMH: non-ischemic CM, HTN, Hypothyroidism, LBBB s/p AUTOMATION TECH-D IMPRESSION / PLAN: Severe nonischemic cardiomyopathy status post AUTOMATION TECH-D in July 2023. - [facility] 10/2021: mod LAD, D1 prox 40%, mild [...] breath or increasing abdominal girth. - s/p AUTOMATION TECH-D 07/16/23 at [facility] - Follows with advanced heart failure, - Follows with Dr. Kitty DIAZ and continue follow-up in the device clinic Left bundle branch block - s/p AUTOMATION TECH-D 07/16/23 at [facility] - Follows with EPDr. [place] Nonobstructive coronary artery disease - [facility] 10/2021: mod LAD, D1 prox 40%, mild [...] an ejection fraction of 23% status post AUTOMATION TECH-D in July 2023, hypertension and factor V [...] on chronic systolic CHF (congestive heart failure) ([facility]) 05/03/2020 Aspiration pneumonia ([facility]) 05/30/2020 Chest pain 05/03/2020 Chest pressure 01/23/2013 Chronic diastolic congestive heart failure (HCC) 02/14/2021 Clostridium difficile diarrhea 09/28/2020 Complete uterovaginal prolapse Cystocele, midline Essential hypertension 06/14/2020 Homozygous Factor V Leiden mutation ([facility]) 05/03/2020 Hypothyroidism IBS (irritable bowel syndrome) 01/23/2013 [...] Cardiovascular testing perfomed today. Angel Castro DO, [facility] Staff Swage Tender Angel and Lizy Nuno Dept. of Cardiovascular Medicine Heart, Vascular and Thoracic [facility], [facility] This document was generated using the assistance of voice recognition software. If there are any errors of spelling, grammar, syntax or meaning, please feel free to contact me directly at anytime. documented in this encounterMercy Health St. [facility]09-17-2024 NoteHNO ID: [id number] Author: MANDEEP HOUSER DO Service: ? Author [...] on chronic systolic CHF (congestive heart failure) ([facility]) 05/03/2020 Aspiration pneumonia ([facility]) 05/30/2020 Chest pain 05/03/2020 Chest pressure 01/23/2013 Chronic diastolic congestive heart failure ([facility]) 02/14/2021 Clostridium difficile diarrhea 09/28/2020 Complete uterovaginal [...] E03.9 (primary diagnosis) - (more content not included)...[facility]09-17-[facility]24 History of Present illness Narrative* Mandeep Houser, [...] on chronic systolic CHF (congestive heart failure) ([facility]) 05/03/2020 Aspiration pneumonia ([facility]) 05/30/2020 Chest pain 05/03/2020 Chest pressure 01/23/2013 Chronic diastolic congestive heart failure ([facility]) 02/14/2021 Clostridium difficile diarrhea 09/28/2020 Complete uterovaginal prolapse Cystocele, midline Essential hypertension 06/14/2020 Homozygous Factor V Leiden mutation ([facility]) 05/03/2020 Hypothyroidism IBS (irritable bowel syndrome) 01/23/2013 [...] plan. See patient instructions. Mandeep Houser DO [address] [place] [address] documented in [address] [facility] NoteHNO ID: [id number] Author: PILI WELLS MD Service: ? Author Type: Physician Type: Progress Notes Filed: 03/07/2024 19:04 Note Text: Heart [facility] Vascular [facility] SECTION OF HEART FAILURE and CARDIAC TRANSPLANT MEDICINE [facility] OUTPATIENT VISIT DATE January 15, 2024 OUTPATIENT VISIT TYPE Established PRIMARY CARE PHYSICIAN: Mandeep Houser [address] [place] [address] CHIEF COMPLAINT: Follow Up HISTORY OF PRESENT ILLNESS: Sandra Schmitz is a 78 year old female with a medical history that includes non-ischemic CM, HTN, Hypothyroidism, LBBB s/p AUTOMATION TECH-D who is referred to me for heart failure management. Sandra Schmitz was initially diagnosed with non-ischemic CM ~ 4 yrs ago and was doing well on losartan and metoprolol. She had progressive sxs of dyspnea on exertion, therefore she was started on entresto and farxiga and her sxs persisted and she was admitted locally in [place] and then transferred to for AUTOMATION TECH consideration. Interval History: Sandra Schmitz was last [...] LVEF 40%, LVEdd 4.8cm. LBBB: chronic. S/p AUTOMATION TECH 07/2023 Non-obstructive CAD: stable, ischemic testing recently [...] on chronic systolic CHF (congestive heart failure) ([facility]) 05/30/2020: Aspiration pneumonia ([facility]) 05/03/2020: Chest pain 01/23/2013: Chest pressure 02/14/2021: Chronic diastolic congestive heart failure ([facility]) 09/28/2020: Clostridium difficile diarrhea No date: Complete uterovaginal prolapse No date: Cystocele, midline 06/14/2020: Essential hypertension 05/03/2020: Homozygous Factor V Leiden mutation ([facility]) No date: Hypothyroidism 01/23/2013: IBS (irritable bowel [...] of heart failure Beta (more content not included)...[facility]09-03[facility]24 History of Present illness Narrative* Pili Wells MD - 01/15/2024 1:13 PM EDT Images from the original note were not included. Heart [facility] Vascular [facility] SECTION OF HEART FAILURE and CARDIAC TRANSPLANT MEDICINE [facility] OUTPATIENT VISIT DATE January 15, 2024 OUTPATIENT VISIT TYPE Established PRIMARY CARE PHYSICIAN: Mandeep Houser [address] [place] [address] CHIEF COMPLAINT: Follow Up HISTORY OF PRESENT ILLNESS: Sandra Schmitz is a 78 year old female with a medical history that includes non-ischemic CM, HTN, Hypothyroidism, LBBB s/p AUTOMATION TECH-D who is referred to md for heart failure management. Sadnra Schmitz was initially diagnosed with non-ischemic CM ~ 4 yrs ago and was doing well on losartan and metoprolol. She had progressive sxs of dyspnea on exertion, therefore she was started on entresto and farxiga and her sxs persisted and she was admitted locally in [place] and then transferredto for AUTOMATION TECH consideration. Interval History: Sandra Schmitz was last [...] LVEF 40%, LVEdd 4.8cm. LBBB: chronic. S/p AUTOMATION TECH 07/2023 Non-obstructive CAD: stable, ischemic testing recently [...] on chronic systolic CHF (congestive heart failure) ([facility]) 05/30/2020: Aspiration pneumonia ([facility]) 05/03/2020: Chest pain 01/23/2013: Chest pressure 02/14/2021: Chronic diastolic congestive heart failure ([facility]) 09/28/2020: Clostridium difficile diarrhea No date: Complete uterovaginal prolapse No date: Cystocele, midline 06/14/2020: Essential hypertension 05/03/2020: Homozygous Factor V Leiden mutation ([facility]) No date: Hypothyroidism 01/23/2013: IBS (irritable bowel [...] to tingling/BADILLO - Vasodilators: no - Device: AUTOMATION TECH-D - Cardiomems: no - Other: lasix 20mg daily IMPRESSION and PLAN/Recommendation In summary, Sandra Schmitz is a 78 year old being managed today for the following issues: 1. Non-ischemic Cardiomyopathy/chronic systolic heart failure: NYHA functional class IIb, Stage C heart failure, Clinical Class A - warm and euvolemic. Intolerant to many GDMT as above. Currently will continue. She reports symptomatic improvement post AUTOMATION TECH. Echo 11/2023 reviewed - LVEF remains low, LV not as dilated, MR improved as well GDMT: as above Did cardiac rehab. Labs 11/2022 reviwed: K 4.0, Cr 0.96 Following with Gloria as well. 2. Non-obsctructive CAD: on aspirin and toprol as above On aspirin 81mg daily, not on stating - reports intolerance. Following with Dr. Castro. 3. LBBB s/p AUTOMATION TECH-D Thank you for allowing me to participate [...] Wells MD Advanced Heart Failure and Transplant [facility] [place] [address] Appointment: [phone] documented in [address] encounterMercy [facility]09-03-2024 Instructions* Patient Instructions* Pili Wells MD [...] and weight daily. Please notify us via [employer] if your Systolic BP (top number) < [...] heart kidney injury risk Please send a [employer] message or call with any questions or concerns: Outpatient Number: [phone] Thank you, Pili Wells MD Advanced Heart Failure and Transplant [facility] [place] [id number] documented in this encounterMercy Health St. [facility]08-29-2024 NoteHNO ID: [id number] Author: MANDEEP HOUSER, DO Service: ? Author [...] on chronic systolic CHF (congestive heart failure) ([facility]) 05/30/2020: Aspiration pneumonia ([facility]) 05/03/2020: Chest pain 01/23/2013: Chest pressure 02/14/2021: Chronic diastolic congestive heart failure ([facility]) 09/28/2020: Clostridium difficile diarrhea No date: Complete uterovaginal prolapse No date: Cystocele, midline 06/14/2020: Essential hypertension 05/03/2020: Homozygous Factor V Leiden mutation ([facility]) No date: Hypothyroidism 01/23/2013: IBS (irritable bowel [...] No edema. No sp (more content not included)...[facility]08-29-[facility] History of Present illness Narrative* Mandeep Houser, [...] (congestive heart failure) (HCC) 05/30/2020: Aspiration pneumonia ([facility]) 05/03/2020: Chest pain 01/23/2013: Chest pressure 02/14/2021: [...] plan. See patient instructions. Mandeep Houser DO [address] [place] [address] documented in [address]Mer[address]07-31-2024 NoteHNO ID: [id number] Author: MANDEEP HOUSER DO Service: ? Author [...] on chronic systolic CHF (congestive heart failure) ([facility]) 05/30/2020: Aspiration pneumonia ([facility]) 05/03/2020: Chest pain 01/23/2013: Chest pressure 02/14/2021: Chronic diastolic congestive heart failure ([facility]) 09/28/2020: Clostridium difficile diarrhea No date: Complete uterovaginal prolapse No date: Cystocele, midline 06/14/2020: Essential hypertension 05/03/2020: Homozygous Factor V Leiden mutation ([facility]) No date: Hypothyroidism 01/23/2013: IBS (irritable bowel [...] bilateral thoracic back pain (more content not included)...[facility]07-31-2024 History of Present illness Narrative* Mandeep Houser, [...] on chronic systolic CHF (congestive heart failure) ([facility]) 05/30/2020: Aspiration pneumonia ([facility]) 05/03/2020: Chest pain 01/23/2013: Chest pressure 02/14/2021: Chronic diastolic congestive heart failure ([facility]) 09/28/2020: Clostridium difficile diarrhea No date: Complete uterovaginal prolapse No date: Cystocele, midline 06/14/2020: Essential hypertension 05/03/2020: Homozygous Factor V Leiden mutation ([facility]) No date: Hypothyroidism 01/23/2013: IBS (irritable bowel [...] OF Comment: TVH, partial colpectomy, anterior colporrhaphy, Dnenis transobturator midurethral sling, cystourethroscopy, rectocele repair with [...] plan. See patient instructions. Mandeep Houser DO [address] [place] [address] documented in [address]Mer[address] [facility] [facility]07-29-2024 Telephone encounter Note * Telephone Encounter [...] edema. No further questions. Pt confirmed understanding. [facility]07-29-2024 Miscellaneous Notes* Telephone Encounter - Helen Ramachandran [...] 12/10/2023 11:31 AM EDT Pili Wells MD Vt, Please call patient with results. She doesn't have mychart for me to send message. Thanks, * Telephone Encounter - Pili Wells MD - 12/06/2023 6:49 PM EDT Echo results reviewed. LVEF remains stable, mitral regurgitation is improved. At this time we will continue with medications. No changes documented in this encounterMercy Health St. [facility]07-29-2024 Telephone encounter Note * Telephone Encounter - Helen Ramachandran RN - 12/10/2023 11:31 AM EDT Pili Wells MD Vt, Please call patient with results. She doesn't have mychart for me to send message. Thanks, [facility]07-25-2024 Telephone encounter Note* Telephone Encounter - Pili Wells MD - 12/06/2023 6:49 PM EDT Echo results reviewed. LVEF remains stable, mitral regurgitation is improved. At this time we will continue with medications. No changes [facility]07-17-2024 Telephone encounter Note* Telephone Encounter - Concetta Dahl - 11/28/2023 11:06 AM EDT Transitional Care Management (TCM) [facility] Monitoring Program Provider Action / FYI: N/A SUMMARY: Outreach type: FOLLOW-UP OUTREACH Discharge Network Status: In-Network Discharge Source of Patient: [facility] TCM Discharge Report Patient discharged from [place] on 11/18/23. Admitted for Pre-syncope. Contact made with patient: Yes, for Follow-up Outreach Vt, my name is Concettajose a Edmondslela. I am calling from the [facility] on behalf of your PrimaryCare Provider, [...] Appointment Center phone number to speak witha director of corporate communications who can assist you with that appointment. [...] Concetta Dahl November 28, 2023 11:[address] [facility]07-17-2024 Miscellaneous Notes* Telephone Encounter - Concetta Dahl - 11/28/2023 11:06 AM EDT Transitional Care Management (TCM) [facility] Monitoring Program Provider Action / FYI: N/A SUMMARY: Outreach type: FOLLOW-UP OUTREACH Discharge Network Status: In-Network [facility]charge [facility] Patient discharged from [place] on 11/18/23. Admitted for Pre-syncope. Contact made with patient: Yes, for Follow-up Outreach Hi, my name is Concetta Nabila. I am calling [facility] the [facility] on behalf of your PrimaryCare Provider, [...] Appointment Center phone number to speak witha director of corporate communications who can assist you with that appointment. [...] 28, 2023 11:09 AM documented in this encounterMercy Health [facility]. [facility]07-12-2024 Telephone encounter Note * Telephone Encounter - Rojas Prakash RN - 11/23/2023 1:28 PM EDT Transitional Care Management (TCM) [facility] Monitoring Program Provider Action / FYI: na SUMMARY: Outreach type: INITIAL OUTREACH Discharge Network Status: In-Network Discharge Source of Patient: [facility] TCM Discharge Report Patient discharged from [place] on 11.18.23. Admitted for Pre-syncope . Contact made with patient: No - next outreach attempt will be on next business day. Rojas Prakash RN November 23, 2023 1:[address] [facility]07-12-2024 Miscellaneous Notes* Telephone Encounter - Rojas Prakash RN - 11/23/2023 1:28 PM EDT Transitional Care Management (TCM) [facility] Monitoring Program Provider Action / FYI: na SUMMARY: Outreach type: INITIAL OUTREACH Discharge Network Status: In-Network Discharge Source of Patient: [facility] TCM Discharge Report Patient discharged from [place] on 11.18.23. Admitted for Pre-syncope . Contact made with patient: No - next outreach attempt will be on next business day. Rojas Prakash RN November 23, 2023 1:29 PM documented in this encounterMercy Health [facility]07-09-2024 Telephone encounter Note * Telephone Encounter [...] No results found for this basename: BNP [facility]07-09-2024 Miscellaneous Notes* Telephone Encounter - Misty [...] for this basename: BNP documented in this encounterMercy Health St. [facility]07-06-2024 NoteHNO ID: [id number] Author: REMINGTON CAI MD Service: Hospital Medicine Author Type: Physician Type: Progress Notes Filed: 11/18/2023 08:20 Note Text: DEPARTMENT OF HOSPITAL MEDICINE PROGRESS NOTE SERVICE DATE: 11/17/2023 SERVICE TIME: 3:13 PM Hospital Medicine/Primary Attending: Remington Cai MD NIGHT AND WEEKEND COVERAGE: [place] COVERAGE: Nights: [phone], please page [facility] Night coverage pager [phone]. Probable discharge: 11/17 Disposition: Home Consultants: PROCEDURES: [...] (1st dx 2019, 07-12-23: EF 26%), s/p AUTOMATION TECH-D (July 20, 2023, medtronic), non occlusive CAD ([facility]: ), IBS, Factor V Leiden Syndrome, HTN, HLD, CAD, Hypothyroidism almost blacking out. Patient states that earlier today she was having some abdominal spasms and went to the bathroom. Had a small BM then proceeded to very lightheaded and states her visions kind of went dark but she did not lose full consci (more content not included)...[facility] [id number] NoteHNO ID: [id number] Author: REMINGTON CAI MD Service: Hospital Medicine Author Type: Physician Type: Progress Notes Filed: 11/17/2023 15:12 Note Text: DEPARTMENT OF [facility] MEDICINE PROGRESS NOTE SERVICE DATE: 11/16/2023 SERVICE TIME: 2:31 PM Hospital Medicine/Primary Attending: Remington Cai MD NIGHT AND WEEKEND COVERAGE: [place] COVER[employer]: Nights: [phone], please page [place] Hospitalist Night coverage pager [phone]. Probable discharge: 11/16 Disposition: Home Consultants: PROCEDURES: [...] ( dx 2019, 07-12-23: EF 26%), s/p AUTOMATION TECH-D (July 20, 2023, medtronic), non occlusive CAD ([facility]: ), IBS, Factor V Leiden Syndrome, HTN, HLD, CAD, Hypothyroidism almost blacking out. Patient states that earlier today she was having some abdominal spasms and went (more content not included)...[facility] [id number] NoteHNO ID: [id number] Author: SADIE TALBERT RN Service: Care Management [...] Determined Advance Directives Current Advance Directive: None Color Paste Mixer Attempted to Assist with AD Completion: Yes [...] Be able to go home, General wellness [place] Explained: [place] Given: No Reason Not Given: [...] 16, 2023 TIME: 9:42 AM CONTACT #: [phone] [id number] NoteHNO ID: [id number] Author: JP HENNING CT Service: Cardiovascular Testing Author Type: Clinical Vegetable Scullion Type: Progress Notes Filed: 11/16/2023 07:55 Note Text: Summary: Pacemaker Check Received requisition for pacemaker check. Went to patient's room to check device. Patient stated that the device was checked in the ED last night. I checked the patient's hard chart and report from [employer] is in the chart. No need to repeat a device check.[facility] [id number] Telephone encounter Note * Telephone Encounter - Bria Wallace MA - 11/08/2023 8:20 AM EDT Pt notified and verbalized understanding Bria Wallace MA [facility]06-27-2024 Miscellaneous Notes* Telephone Encounter - Bria [...] Lymph 1.00 - 4.00 k/uL 4.05 (H) [place]% % 9.1 Abs [place] <0.87 k/uL 0.99 (H) Eosin% % 3.1 [...] chronic microvascular ischemic changes. documented in this encounterMercy Health St. [facility]06-26-2024 History of Present illness Narrative* Mandeep [...] on chronic systolic CHF (congestive heart failure) ([facility]) 05/03/2020 Aspiration pneumonia ([facility]) 05/30/2020 Chest pain 05/03/2020 Chest pressure 01/23/2013 Chronic diastolic congestive heart failure ([facility]) 02/14/2021 Clostridium difficile diarrhea 09/28/2020 Complete uterovaginal prolapse Cystocele, midline Essential hypertension 06/14/2020 Homozygous Factor V Leiden mutation ([facility]) 05/03/2020 Hypothyroidism IBS (irritable bowel syndrome) 01/23/2013 [...] M54.50 Xrays as ordered Start on prednisone Rousseau for severe pain, If xrays are without [...] plan. See patient instructions. Mandeep Houser DO [address] [place] [address] documented in [address]Mer[address]06-26-2024 Telephone encounter Note * Telephone Encounter [...] before breakfast. Authorizing Provider: HOUSERMANDEEP HAUSER DO [facility]06-26-2024 Telephone encounter Note* Telephone Encounter - Petrona Lechuga RN - 11/07/2023 1:03 PM EDT Spoke with patient. Given message from provider's office. Patient verbalizes understanding. Scheduled. Petrona Lechuga RN [facility]06-26-2024 Miscellaneous Notes* Telephone Encounter - Petrona [...] on her. Please advise documented in this encounterMercy Health St. [facility]06-26-2024 Telephone encounter Note * Telephone Encounter - Mandeep Houser DO - 11/07/2023 12:36 PM EDT Ok for her to come in at 6 pm tonight for an appointment Mandeep Houser DO [facility]06-26-2024 Telephone encounter Note* Telephone Encounter - Mane Pennington LPN - 11/07/2023 10:36 AM EDT Patient calling asking for an OMT appt having back and hip problems. Patient said her hip went out on her. Please advise [facility]06-25-2024 Telephone encounter Note* Telephone Encounter - Sajneev Carpio RN - 11/06/2023 10:25 AM EDT [...] Lymph 1.00 - 4.00 k/uL 4.05 (H) [place]% % 9.1 Abs [place] <0.87 k/uL 0.99 (H) Eosin% % 3.1 [...] 2.1 (L) Legend: (H) High (L) Low [facility]06-25-2024 Telephone encounter Note* Telephone Encounter - Merly Gomez OCCA - 11/06/2023 10:14 AM EDT TC no answer. Left VM to return call. BETTY Wells [facility]06-25-2024 Telephone encounter Note* Telephone Encounter - [...] consistent with chronic microvascular ischemic changes. T [facility]06-20-2024 History of Present illness Narrative* Kirstin [...] PATIENT PRESENTS WITH AN IMPLANTABLE OR ATTACHED COTTON CLEANER: No RADIOLOGY DEPARTMENT: CT; Exam(s) Completed: Brain PERIPHERAL IV DATA: Not applicable SIGNED BY: RT Reyes(Marlee) November 01, 2023 3:05 PM documented in this encounterMercy Health St. [facility]06-20-2024 NoteHNO ID: [id number] Author: KIRSTIN STEVENS RT(Marlee) Service: Radiology Author [...] PATIENT PRESENTS WITH AN IMPLANTABLE OR ATTACHED COTTON CLEANER: No RADIOLOGY DEPARTMENT: CT; Exam(s) Completed: Brain PERIPHERAL IV DATA: Not applicable SIGNED BY: RT Reyes(R) November 01, 2023 3:05 [facility]06-20-2024 History of Present illness Narrative* Mercedes Vera APRN.STRATEGIC BUYER - 11/01/2023 9:30 AM EDT Images from the original note were not included. [facility] [place] [facility] Department of Cardiovascular Medicine SECTION OF CARDIAC PACING and ELECTROPHYSIOLOGY OUTPATIENT VISIT DATE November 01, 2023 OUTPATIENT VISIT TYPE ESTABLISHED PRIMARY CARE PHYSICIAN: Mandeep Houser [address] [place] [address] CHIEF COMPLAINT: follow up s/p AUTOMATION TECH-D HISTORY OF PRESENT ILLNESS: Ms. Schmitz is a 78 year old female who presents today for followed by Dr. Wells, Dr. Wellington, Dr. Greenfield ([facility]), Dr. Oneill, non ischemic cardiomyopathy, chronic HFrEF (2019, 07-12-23: EF 26%), s/p AUTOMATION TECH-D (July 20, 2023, medtronic), non occlusive CAD ([facility]: ), Other PMH of hypertension, hyperlipidemia, family [...] on chronic systolic CHF (congestive heart failure) ([facility]) 05/03/2020 Aspiration pneumonia ([facility]) 05/30/2020 Chest pain 05/03/2020 Chest pressure 01/23/2013 [...] - 4.00 k/uL 3.09 3.14 4.05 (H) [place]% % 8.6 7.3 9.1 Abs [place] <0.87 k/uL 1.15 (H) 0.72 0.99 (H) [...] Programmed parameters reviewed * Presenting rhythm reviewed: /METAL PATTERNMAKER APPRENTICE * Heart Rate Histograms reviewed * No [...] pacing <0.1%. total V pacing 97.9%. Adaptive AUTOMATION TECH shows BiV pacing 6.8%, LV only pacing [...] chronic HFrEF (2019, 07-12-23: EF 26%), s/p AUTOMATION TECH-D (July 20, 2023, medtronic), non occlusive CAD ([facility]: ). -normotensive, ventricular pacing, no evidence per [...] with more than 50% of the total [id number] time of the visit in counseling / coordination of care. CONTACT INFORMATION: Mercedes Vera APRN.TIM, 11/01/23 [facility] [address] [place] [address] documented in [address]Mer[address] [facility]06-19-20[facility] History of Present illness Narrative* Mandeep [...] 3 months had a pacemaker placed by [facility]- has upcoming follow up for check up. [...] (congestive heart failure) (HCC) 05/03/2020 Aspiration pneumonia ([facility]) 05/30/2020 Chest pain 05/03/2020 Chest pressure 01/23/2013 Chronic diastolic congestive heart failure ([facility]) 02/14/2021 Clostridium difficile diarrhea 09/28/2020 Complete uterovaginal prolapse Cystocele, midline Essential hypertension 06/14/2020 Homozygous Factor V Leiden mutation ([facility]) 05/03/2020 Hypothyroidism IBS (irritable bowel syndrome) 01/23/2013 [...] with the plan. Mandeep Houser DO [address] [place] [address] documented in [address] [facility]06-[facility]-2024 Telephone encounter Note * Telephone Encounter - Radha Buchanan - 10/30/2023 12:00 PM EDT Patient will call back to confirm or change appointment. Will check with daughter and sister for transportation help. Prefers [place] location with Mercedes. [facility]06-18-2024 Miscellaneous Notes* Telephone Encounter - Radha Buchanan - 10/30/2023 12:00 PM EDT Patient will call back to confirm or change appointment. Will check with daughter and sister for transportation help. Prefers [place] location with Mercedes. * Telephone Encounter - Radha Buchanan - 10/30/2023 11:33 AM EDT Images from the original note were not included. Dilcia Pearson MD Othman, Amal; Shelly Briones MA Can we bring her in for visit with Mercedes (here) or Morenita Chavis at [facility] - earliest available(not urgent) Thx C documented in this encounterMercy Health St. [facility]06-18-2024 Telephone encounter Note * Telephone Encounter - Radha Buchanan - 10/30/2023 11:33 AM EDT Images from the original note were not included. Dilcia Pearson MD Othman, Amal; Shelly Briones MA Can we bring her in for visit with Mercedes (here) or Morenita or [place] at [facility] - earliest available(not urgent) Thx C [facility]06-05-2024 Telephone encounter Note* Telephone Encounter - Anni Herrera LPN - 10/17/2023 11:20 AM EDT Spoke with pt and information listed below given. Pt verbalizes understanding. Anni Herrera LPN [facility]06-05-2024 Miscellaneous Notes* Telephone Encounter - Anni [...] stable. Take careRupali APRN.CNP documented in this encounterMercy Health St. [facility]06-[facility]-2024 Telephone encounter Note * Telephone Encounter - Kelsey Costa LPN - 10/17/2023 10:19 AM EDT Message left to return call. [facility] Work Phone: 1(123) 652-322006-05-2024 Telephone encounter Note* Telephone Encounter - Rupali Nascimento APRN.CNP - 10/17/2023 9:38 AM EDT Please call patient and let her know that lab work looks good. Uric acid level was elevated as we suspected d/t gout flare up. Continue with regimen as discussed. Kidney function is normal and stable. Take care, Rupali Nascimento APRN.STRATEGIC BUYER [facility]06-03-2024 Telephone encounter Note* Telephone Encounter - Rupali Nascimento APRN.CNP - 10/15/2023 12:18 PM EDT Noted. Just saw patient in office and agree with below. Trial of prednisone burst x 4 days and continue with compression stockings was the recommendation. Thank you, Rupali Nascimento APRN.STRATEGIC BUYER [facility]06-03-2024 Miscellaneous Notes* Telephone Encounter - Rupali [...] pain, rash, fever, numbness Protocols used: Toe [id number] documented in this encounterMercy Health St. [facility]06-03-2024 Instructions* Patient Instructions* Rupali Nascimento APRN.STRATEGIC BUYER - 10/15/2023 11:47 AM EDT .az documented in this encounterMercy Health St. [facility]06-03-2024 History of Present illness Narrative* Rupali [...] on chronic systolic CHF (congestive heart failure) ([facility]) 05/03/2020 Aspiration pneumonia ([facility]) 05/30/2020 Chest pain 05/03/2020 Chest pressure 01/23/2013 Chronic diastolic congestive heart failure ([facility]) 02/14/2021 Clostridium difficile diarrhea 09/28/2020 Complete uterovaginal prolapse Cystocele, midline Essential hypertension 06/14/2020 Homozygous Factor V Leiden mutation ([facility]) 05/03/2020 Hypothyroidism IBS (irritable bowel syndrome) 01/23/2013 [...] Patient agreeable to treatment plan. Rupali Correa APRN.STRATEGIC BUYER [address] [place] [address] documented in [address] encounterMer[address]06-03-2024 Telephone encounter Note * Telephone Encounter - Jyoti Josue RN - 10/15/2023 11:09 AM EDT Received TE back today and called patient with update. Patient scheduled with PCP office previously. Patient wanting to have PCP check to make sure she doesn't have gout. Dr. Del Cid is out this week. Jyoti Josue RN [facility]05-30-2024 Telephone encounter Note* Telephone Encounter - [...] pain, rash, fever, numbness Protocols used: Toe [id number] [facility]05-30-2024 Telephone encounter Note* Telephone Encounter - [...] 10/31/2023 Please advise. Thank you. Sridevi Leyva. [facility]05-30-2024 Miscellaneous Notes* Telephone Encounter - Sridevi [...] Thank you. Sridevi Leyva. documented in this encounterMercy Health St. [facility]05-21-2024 History of Present illness Narrative* Pili Wells MD - 10/02/2023 4:00 PM EDT Heart, V[facility] [place] Department of Cardiovascular Medicine TELEPHONE VISIT (audio [...] visit. Either the patient or their legal wireless sales representative has been informed of the [...] includes non-ischemic CM, HTN, Hypothyroidism, LBBB s/p AUTOMATION TECH-D who is referred to me for heart failure management. Sandra Schmitz was initially diagnosed with non-ischemic CM ~ 4 yrs ago and was doing well on losartan and metoprolol. She had progressive sxs of dyspnea on exertion, therefore she was started on entresto and farxiga and her sxs persisted and she was admitted locally in [place] and then transferredto for AUTOMATION TECH consideration. Interval History: Sandra Schmitz was last [...] LVEF 40%, LVEdd 4.8cm. LBBB: chronic. S/p AUTOMATION TECH 07/2023 Non-obstructive CAD: stable, ischemic testing recently with no ischemia or infarction. 06/2023 Nuc SPECT: no ischemia or infarction. 10/2021 Cath: mod LAD, D1 prox 40%, mild RCA disease dominant, EF 35%. Hx of HTN: BP have been stable Data Reviewed: Device interrogation (09/19/23) OTHER DIAGNOSTICS: RA pacing <0.1%. total V pacing 97.9%. Adaptive AUTOMATION TECH shows BiV pacing 6.8%, LV only pacing 93.2%. Assessment: GDMT: - BB: toprol XL 12.5mg daily - ACEI/ARB/ARNI: losartan 25mg daily - MRA: no - SGLT2: unable to tolerate it - Vasodilators: no - Device: AUTOMATION TECH - Cardiomems: no - Other: lasix 20mg [...] reviewed Cr: 0.84, K 3.9. Echocardiogram in [place] next month and following with Dr. Castro. 2. HTN: BP well controlled currently. 3. LBBB s/p AUTOMATION TECH: Will send message to Dr. Wellington given [...] Wells MD Advanced Heart Failure and Transplant [facility] [place] [id number] Appointment: [phone] documented in [address] encounterMer[facility]05-20-2024 Instructions* Patient Instructions* Alejandrina Harvey APRN.STRATEGIC BUYER - 10/01/2023 12:41 PM EDT Take the Mucinex twice daily for 14 days. Start the Zpak today. Use the tessalon perles for your cough if they work. Get in at least 60-80oz of water daily. Ok for Tylenol/ibuprofen if necessary. Let me know in the next week if you're not improving. documented in this encounterMercy Health St. [facility]05-20-2024 History of Present illness Narrative* Alejandrina [...] on chronic systolic CHF (congestive heart failure) ([facility]) 05/03/2020 Aspiration pneumonia ([facility]) 05/30/2020 Chest pain 05/03/2020 Chest pressure 01/23/2013 Chronic diastolic congestive heart failure ([facility]) 02/14/2021 Clostridium difficile diarrhea 09/28/2020 Complete uterovaginal prolapse Cystocele, midline Essential hypertension 06/14/2020 Homozygous Factor V Leiden mutation ([facility]) 05/03/2020 Hypothyroidism IBS (irritable bowel syndrome) 01/23/2013 [...] HR Alejandrina Harvey APRN.TIM documented in this encounterMercy Health St. [facility]05-20-2024 Telephone encounter Note * Telephone Encounter - Margarita Villalba LPN - 10/01/2023 10:17 AM EDT Patient notified of results and provider's instructions. Patient verbalizes understanding. Margarita Villalba LPN [facility] Work Phone: 1(255) 622-136805-20-2024 Miscellaneous Notes* Telephone Encounter - Margarita Villalba [...] shoes Oliverio Mata DPM documented in this encounterMercy Health St. [facility]05-19-2024 Telephone encounter Note * Telephone Encounter - Oliverio Mata - 09/30/2023 8:03 AM EDT Please call patient to inform her that xrays do not show any stress fracture. Continue with good supportive shoes and/or insert in shoes Oliverio Mata DPM [facility] Work Phone: 1(686) 901-298105-17-2024 NoteMULTI CHAMBER ICD REMOTE EVALUATION: PRESENTING EGM: /LVP BATTERY STATUS: Estimated time remaining to YOLI is 11.7 years COUNTERS SINCE: 08/07/23 ATRIAL ARRHYTHMIAS: There have been no atrial detections. VENTRICULAR ARRHYTHMIAS: There have been no ventricular detections. LEAD MEASUREMENTS: Sensing is appropriate. Review of the lead impedance trends are normal. OTHER DIAGNOSTICS: RA pacing <0.1%. total V pacing 97.9%. Adaptive AUTOMATION TECH shows BiV pacing 6.8%, LV only pacing 93.2%. FOLLOW UP: Continue 3 month remote transmissions and yearly in-clinic interrogations. Amy Louis RN NOTE TO PROVIDERS: CARD Flowsheets contain detailed device programming and testing data. Paceart/Interrogation PDF can be found under CARDIAC DATA AND REPORT, Scanned Documents section.[id number] Telephone encounter Note* Telephone Encounter - Thuy [...] Dr. Wells 10/01 carlito. Thuy Aguirre APRN.CNP [facility]05-14-2024 Miscellaneous Notes* Telephone Encounter - Thuy [...] Thuy Aguirre APRN.CNP documented in this encounterCleveland [id number] History of Present illness Narrative* Nuria Whitten [...] PATIENT PRESENTS WITH AN IMPLANTABLE OR ATTACHED COTTON CLEANER: No RADIOLOGY DEPARTMENT: General X-ray: Exam(s) Completed: Lower Extremity X- Ray(s): Foot, Left PERIPHERAL IV DATA: Not applicable SIGNED BY: RT Daily(R) September 24, 2023 11:01 AM documented in this encounterMercy Health St. [facility]05-13-2024 History of Present illness Narrative* Oliverio Mata [...] on chronic systolic CHF (congestive heart failure) ([facility]) 05/03/2020 Aspiration pneumonia ([facility]) 05/30/2020 Chest pain 05/03/2020 Chest pressure 01/23/2013 Chronic diastolic congestive heart failure ([facility]) 02/14/2021 Clostridium difficile diarrhea 09/28/2020 Complete uterovaginal prolapse Cystocele, midline Essential hypertension 06/14/2020 Homozygous Factor V Leiden mutation ([facility]) 05/03/2020 Hypothyroidism IBS (irritable bowel syndrome) 01/23/2013 [...] cardiology Oliverio Mata DPM Podiatry [address] [facility] [address] Dept: [phone] Dept * Sincere Berger RN - 09/24/2023 [...] is in cardiac rehab where she walks [facility], started that on 08/31/23 three times a week. documented in this encounterMercy Health St. [facility]05-08-2024 Telephone encounter Note * Telephone Encounter - Ira Welch RN - 09/19/2023 5:43 PM EDT Spoke with patient and talked her through sending remote transmission. Pt states that she feels okay other than mild discomfort, denies any shortness of breath, internal chest pain or feeling unwell. Ira Welch RN [facility]05-08-2024 Miscellaneous Notes* Telephone Encounter - Ira [...] and she asks if that is the venetie ira thing that sits on the table and [...] was connected that she should contact her silver buffer. Please review. JOHN Rowe documented in this encounterMercy Health St. [facility]05-08-2024 Telephone encounter Note * Telephone Encounter [...] and she asks if that is the venetie ira thing that sits on the table and turns green. She states she has never had to send one before and isn't sure how to do it so someone will need to walk her through it. I told her to watch for our call. [facility]05-07-2024 Telephone encounter Note* Telephone Encounter - Sanjeev Carpio RN - 09/18/2023 8:22 AM EDT Phoned patient and given provider's message below with verbalized understanding. Patient agreeable and will call back to schedule appt. [facility]05-07-2024 Miscellaneous Notes* Telephone Encounter - Sanjeev [...] schedule with for further assessment. Alejandrina Harvey APRN.STRATEGIC BUYER * Telephone Encounter - Sanjeev Carpio RN - 09/17/2023 1:11 PM EDT Patient asking provider to review and advise on xray left foot results, and asking if she should schedule appt with Dr. Mata, as the left foot is sill swollen some today. documented in this encounterMer[facility]05-07-2024 Telephone encounter Note * Telephone Encounter - Alejandrina Harvey APRN.CNP - 09/18/2023 6:57 AM EDT Her foot xray looks stable, nothing acutely concerning. Yes, please assist her to schedule with for further assessment. Alejandrina Harvey APRN.TIM [facility]05-06-2024 Telephone encounter Note* Telephone Encounter - [...] out to EP doctor Dr. Wellington too. [facility]05-06-2024 Miscellaneous Notes* Telephone Encounter - Dianna [...] doctor Dr. Wellington too. documented in this encounterMercy Health St. [facility]05-06-2024 Telephone encounter Note * Telephone Encounter - Concetta Prado PSS - 09/17/2023 1:38 PM EDT Patient stated that while she bent over to weed she felt her pacemaker move forward. Pt had a cardio therapy appt today 09/17/23 and they stated everything was connected that she should contact her silver buffer. Please review. JOHN Rowe [facility]05-06-2024 Telephone encounter Note* Telephone Encounter - Sanjeev Carpio RN - 09/17/2023 1:11 PM EDT Patient asking provider to review and advise on xray left foot results, and asking if she should schedule appt with Dr. Mata, as the left foot is sill swollen some today. [facility]05-02-2024 History of Present illness Narrative* Nuria [...] PATIENT PRESENTS WITH AN IMPLANTABLE OR ATTACHED COTTON CLEANER: No RADIOLOGY DEPARTMENT: General X-ray: Exam(s) Completed: Lower Extremity X- Ray(s): Foot, Left PERIPHERAL IV DATA: Not applicable SIGNED BY: RT Daily(R) September 13, 2023 11:37 AM documented in this encounterMercy Health St. [facility]05-02-2024 History of Present illness Narrative* Alejandrina [...] OMEPRAZOLE 20 MG CAPSULE,DELAYED RELEASE Alejandrina Harvey APRN.STRATEGIC BUYER Currently: Top of left foot just near the base of her first 2 toes is painful and swollen. Doing therapy. Has hx of pin in her big toe and fusion to second toe. Thinks she may have stepped wrong-started about 1.5 weeks ago. Hurts to walk and now hurting into the ball of her foot. M-W-F at 10:00 therapy/cardiac rehab at [facility]. Past medical history, appointments, medications, allergies reviewed. Previous Medical History PAST MEDICAL HISTORY Diagnosis Date Acute acalculous cholecystitis 05/30/2020 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 09/22/2020 Acute on chronic systolic CHF (congestive heart failure) ([facility]) 05/03/2020 Aspiration pneumonia ([facility]) 05/30/2020 Chest pain 05/03/2020 Chest pressure 01/23/2013 Chronic diastolic congestive heart failure ([facility]) 02/14/2021 Clostridium difficile diarrhea 09/28/2020 Complete uterovaginal prolapse Cystocele, midline Essential hypertension 06/14/2020 Homozygous Factor V Leiden mutation ([facility]) 05/03/2020 Hypothyroidism IBS (irritable bowel syndrome) 01/23/2013 [...] LEFT Alejandrina Harvey APRN.TIM documented in this encounterMercy Health St. [facility]04-24-2024 Instructions* Patient Instructions* Thuy Aguirre APRN.CNP [...] Jardiance. 3. Fasting blood work at any [facility] lab in 2 weeks to check [...] appointment with Dr. Oneill documented in this encounterMercy Health St. [facility]04-24-2024 History of Present illness Narrative* Thuy Aguirre APRN.CNP - 09/05/2023 11:00 AM EDT Images from the original note were not included. [facility] [place] Department of Cardiovascular Medicine SECTION OF CLINICAL CARDIOLOGY OUTPATIENT VISIT DATE September 05, 2023 OUTPATIENT VISIT TYPE ESTABLISHED PRIMARY CARE PHYSICIAN: Mandeep Houser [address] [place] [address] CHIEF COMPLAINT: Follow up HISTORY OF PRESENT ILLNESS: Ms. Schmitz is a 78 year old female with history of chronic HFrEF, NICM, LBBB, s/p AUTOMATION TECH-D (07/2023), nonobstructive CAD, valvular insufficiency, HTN, hypothyroidism, and factor V Leiden mutation who presents today for a cardiovascular medicine follow-up visit. She has historically received her general cardiology care in [place] with Dr. Oneill however after recent admission to [place] 06/2023 she is looking to establish her [...] She is participating in cardiac rehab in [facility]. She isweighing herself daily and weights have [...] on chronic systolic CHF (congestive heart failure) ([facility]) 05/03/2020 Aspiration pneumonia ([facility]) 05/30/2020 Chest pain 05/03/2020 Chest pressure 01/23/2013 Chronic diastolic congestive heart failure ([facility]) 02/14/2021 Clostridium difficile diarrhea 09/28/2020 Complete uterovaginal prolapse Cystocele, midline Essential hypertension 06/14/2020 Homozygous Factor V Leiden mutation ([facility]) 05/03/2020 Hypothyroidism IBS (irritable bowel syndrome) 01/23/2013 [...] 09/11) - Repeat echo 3 months post AUTOMATION TECH-D (~10/2023) - Jardiance started 08/31 and Lasix discontinued - BMP 2 weeks after starting Jardiance - Consider increase Losartan dose pending Jardiance response Nonischemic cardiomyopathy - [facility] 10/2021: mod LAD, D1 prox 40%, mild RCA disease - GDMT: - s/p AUTOMATION TECH-D 07/16/23 at [facility] - Follows with advanced heart failure, - Follows with EP, Dr. Wellington Left bundle branch block - s/p AUTOMATION TECH-D 07/16/23 at [facility] - Follows with EP, Dr. Wellington Nonobstructive coronary artery disease - [facility] 10/2021: mod LAD, D1 prox 40%, mild [...] October to assess LVEF 3 months s/p AUTOMATION TECH-D. Her most recent cholesterol profile is not [...] Cardiology Nurse Practitioner Section of Regional Cardiology [facility] Dept of Cardiovascular Medicine [facility] [place] [address] Office Office This note was partially generated using [employer] voice recognition system and may contain errors related to that system including grammar, punctuation, spelling, and words that may be inappropriate documented in this encounterMercy Health St. [facility]04-15-2024 Miscellaneous Notes* Telephone Encounter - Vinita [...] as she states she recently saw her silver buffer and was put on Jardiance. She is calling to see if there is any problem to starting the Jardiance and taking the Fluconozole? Please call pt back after provider review. documented in this encounterMer[facility] Health St. [facility]04-12-2024 Miscellaneous Notes* Telephone Encounter - Helen [...] lasix is she taking? documented in this encounterMercy Health St. [facility]04-10-2024 Instructions* Patient Instructions* Alejandrina Harvey APRN.TIM - 08/22/2023 11:16 AM EDT Take the prednisone (steroid) if needed for your gout pain. Start taking the omeprazole for your silent reflux, take this at night if you're able. Take the diflucan for yeast infection today. You can repeat it in 3 days if necessary. Your urine testing looks completely normal. documented in this encounterMercy Health St. [facility]04-10-2024 History of Present illness Narrative* Alejandrina [...] on chronic systolic CHF (congestive heart failure) ([facility]) 05/03/2020 Aspiration pneumonia ([facility]) 05/30/2020 Chest pain 05/03/2020 Chest pressure 01/23/2013 Chronic diastolic congestive heart failure ([facility]) 02/14/2021 Clostridium difficile diarrhea 09/28/2020 Complete uterovaginal prolapse Cystocele, midline Essential hypertension 06/14/2020 Homozygous Factor V Leiden mutation ([facility]) 05/03/2020 Hypothyroidism IBS (irritable bowel syndrome) 01/23/2013 [...] OMEPRAZOLE 20 MG CAPSULE,DELAYED RELEASE Alejandrina Harvey APRN.STRATEGIC BUYER documented in this encounterMercy Health St. [facility]03-26-2024 History of Present illness Narrative* Dilcia Pearson MD - 08/07/2023 3:22 PM EDT Images from the original note were not included. [facility] [place] Department of Cardiovascular Medicine SECTION OF CARDIAC PACING and ELECTROPHYSIOLOGY OUTPATIENT VISIT DATE August 07, 2023 OUTPATIENT VISIT TYPE ESTABLISHED PRIMARY CARE PHYSICIAN: Mandeep Houser [address] [place] [address] REFERRING PHYSICIAN: No referring provider defined for this encounter. CHIEF COMPLAINT: Left bundle branch block, nonischemic cardiomyopathy, status post AUTOMATION TECH-D HISTORY OF PRESENT ILLNESS: Ms. Schmitz is [...] shows normal lead parametersand effective delivery of AUTOMATION TECH. She reports notable improvement in symptoms. We will monitor her device remotely every 3 months Follow-up with EP team on an annual basis CONTACT INFORMATION: Dilcia Bonilla MD documented in this encounterMercy Health St. [facility]03-25-2024 Miscellaneous Notes* Telephone Encounter - Helen Ramachandran RN - 08/06/2023 3:41 PM EDT Spoke with pt to confirm appt with Dr. Wells tomorrow. documented in this encounterMercy Health St. [facility]03-16-2024 Miscellaneous Notes* Telephone Encounter - Palmira [...] device related. Please advise. documented in this encounterMercy Health St. [facility]03-13-2024 Miscellaneous Notes* Telephone Encounter - Mane [...] you. Mane Pennington LPN. documented in this encounterMercy Health St. [facility]03-13-2024 Miscellaneous Notes* Telephone Encounter - Mane Pennington LPN - 07/25/2023 2:06 PM EDT Phoned patient and went over results, notes from Dr Houser with understanding. * Telephone Encounter - Mandeep Houser DO - 07/25/2023 1:49 PM EDT Please let patient know that overall her labs are stable. No changes at this time Mandeep Houser DO documented in this encounterMercy Health St. [facility]03-12-2024 History of Present illness Narrative* Mandeep [...] beta-lorenzo. Unable to schedule pacer defibrillator and [place] and contacted [facility] in August to have Dr. Wellington [...] pacer defibrillator plan to be done at [place] Disposition: Transfer to [place] on hospital medicine with consult to Dr. [...] 24 Has a follow up scheduled with [facility] / Cardiac surgeon in the next 2 [...] and fatigue is improving. Follow up with [facility]/surgeon Recheck labs. She is taking the metoprolol [...] and fatigue is improving. Follow up with [facility]/surgeon Recheck labs. She is taking the metoprolol medication - COMP METABOLIC PANEL - CBC + DIFF 5. Acute hypoxic respiratory failure (HCC) - ICD9: 518.81, ICD10: J96.01 - recently hospitalized and medications adjusted down and off Entresto. Had biventricular pacemakerand defibrillator placed and fatigue is improving. Follow up with [facility]/surgeon Recheck labs. She is taking the metoprolol medication - COMP METABOLIC PANEL - CBC + DIFF 6. Chronic bronchitis, unspecified chronic bronchitis type (HCC) - ICD9: 491.9, ICD10: J42 - recently hospitalized and medications adjusted down and off Entresto. Had biventricular pacemakerand defibrillator placed and fatigue is improving. Follow up with [facility]/surgeon Recheck labs. She is taking the metoprolol medication - COMP METABOLIC PANEL - CBC + DIFF 7. Atrial fibrillation, unspecified type (HCC) - ICD9: 427.31, ICD10: I48.91 - recently hospitalized and medications adjusted down and off Entresto. Had biventricular pacemakerand defibrillator placed and fatigue is improving. Follow up with [facility]/surgeon Recheck labs. She is taking the metoprolol medication - COMP METABOLIC PANEL - CBC + DIFF 8. SVT (supraventricular tachycardia) (HCC) - ICD9: 427.89, ICD10: I47.10 - recently hospitalized and medications adjusted down and off Entresto. Had biventricular pacemakerand defibrillator placed and fatigue is improving. Follow up with [facility]/surgeon Recheck labs. She is taking the metoprolol [...] with the plan. Mandeep Houser DO [address] [place] [address] documented in [address]Mer[address] [facility]03-08-2024 History of Present illness Narrative* Fitz Mcqueen RN - 07/20/2023 1:09 PM EST TCM Home Visit Referral Source of Stratification: [facility] Admission Status: Discharged [...] Dept Phone 07/24/2023 1:40 PM MANDEEP HOUSER [facility] [phone] 08/07/2023 2:30 PM DEVICE CLINIC CARD EPS EDENILSON Reed [phone] 08/07/2023 3:00 PM KITTY MUNOZTODILCIAWestValley [phone] 08/07/2023 3:30 PM PILI [place] [phone] SUMMARY: Discharge Network Status: In-Network Discharge Pt discharged from [place] on 07/18/23. Admitted for: Bradycardia Contact made with patient: Yes Hi my name is Fitz Mcqueen RN and I am calling from the [facility] on behalf of your PCP, Mandeep [...] like to speak with a social work front desk team member to help give you support [...] I will send your request to a director of corporate communications who will contact and assist you with [...] No Fitz Mcqueen RN documented in this encounterMercy Health St. [facility]03-08-2024 Miscellaneous Notes* Telephone Encounter - Cathy Munguia - 07/20/2023 10:17 AM EST PATIENT INFORMATION Record ID: [id number] Patient Name: [facility]: [place]: [facility] Attending: Angelica Silva Center: Hospital Medicine INSTRUCTIONS SN to remind patient of next upcoming appointment date, time, location All Clear SURVEY INFORMATION Medical/Nurse Tiler: Cathy Prakash 1. Your discharge instructions are [...] symptoms? (Standard Question) No documented in this encounterMercy Health St. [facility]03-05-2024 NoteHNO ID: [id number] Author: ANGELICA SILVA MD Service: Hospital Medicine Author Type: Physician Type: Progress Notes Filed: 07/18/2023 09:37 Note Text: DEPARTMENT OF HOSPITAL MEDICINE PROGRESS NOTE SERVICE DATE: 07/17/2023 SERVICE TIME: 5:22 PM Hospital Medicine/Primary Attending: Angelica Silva MD NIGHT AND WEEKEND COVERAGE: [place] COVERAGE:Team 5 Subjective INTERVAL HPI: The patient [...] that made her come to [facility] Patient reports when she was off [...] and Airways Line Duration Peripheral 07/15/23 1115 [facility] Short Right Forearm 20 Gauge 2 days Peripheral 07/16/23 1718 [facility] Left Wrist 20 Gauge 1 day DATA: Diagnostic tests reviewed for today's visit: Most recent labs and imaging results. 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 chronic LBBB 77 year old female, who presented to [facility] due to concerns for chest pressure with associated postural lightheadedness and dyspnea She was subsequently admitted to [facility] She had lexiscan stress test which was [...] IV Lasix And she was transferred to [facility] for consideration of inpatient AUTOMATION TECH implantation given her left bundle branch block Pt was seen by EP and she had MDT AUTOMATION TECH-D insertion on 08/14 In regards to heart [...] week follow up with EP ROSEMARY at [facility] office with device check prior. Medication and [...] July 17, 2023 TIME: 5:22 PM etx [id number] [id number] NoteHNO ID: [id number] Author: ANGELICA SILVA MD Service: Hospital Medicine [...] levels are clinically Insignificant Other, please specify [facility] [id number] Miscellaneous Notes* Telephone Encounter - Morenita Hill APRN.CNP - 07/17/2023 11:04 AM EST Please call patient to arrange for appointment with EP ROSEMARY or Dr. Wellington with device check immediately prior at P office. If we could coordinate this for same day she is seeing Dr. Wells, that wouldbe great, in the next ~2 weeks. Thank you! Morenita Hill APRN.CNP documented in this encounterMercy Health St. [facility]03-04-2024 NoteHNO ID: [id number] Author: GRISELDA SALMERON MD Service: Anesthesiology Author [...] Schmitz DATE: 2023 TIME: 5:03 PM CSN: [id number] NoteHNO ID: [id number] Author: KEKE DENG APRN.CRNA Service: ? Author Type: Nurse Piano Mover Type: Anesthesia Procedure Notes Filed: 2023 14:19 Note Text: ANESTHESIOLOGY PROCEDURE NOTE Airway General Information Procedure Start Time/Medication Administration: 2023 1:49 PM Patient location during procedure: OR Timeout Performed Pre-procedure: timeout performed Consent Obtained: Yes Patient identity confirmed: arm band and patient Staffing ENGINEERING WRITER: Keke Deng APRN.CRNA Indications and Patient Condition [...] Schmitz DATE: 2023 TIME: 2:19 PM CSN: [id number] NoteHNO ID: [id number] Author: ANGELICA SILVA MD Service: Hospital Medicine Author Type: Physician Type: Progress Notes Filed: 2023 13:44 Note Text: DEPARTMENT OF HOSPITAL MEDICINE PROGRESS NOTE SERVICE DATE: 2023 SERVICE TIME: 1:41 PM Hospital Medicine/Primary Attending: Angelica Silva MD NIGHT AND WEEKEND COVERAGE: [place] COVERAGE:Team 5 Subjective INTERVAL HPI: Patient is [...] and Airways Line Duration Peripheral 07/15/23 1115 [facility] Short Right Forearm 20 Gauge 1 day DATA: Diagnostic tests reviewed for today's visit: Most recent labs and imaging results. 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 chronic LBBB 77 year old female, who presented to [facility] due to concerns for chest pressure with associated postural lightheadedness and dyspnea She was subsequently admitted to [facility] She had lexiscan stress test which was [...] IV Lasix And she was transferred to [facility] for consideration of inpatient AUTOMATION TECH implantation given her left bundle branch block Patient currently reports significant improvement in chest pain and shortness of breath compared to admission X-ray of the chest no acute cardiopulmonary process proBNP improved Seen by EP appreciate input PT for AUTOMATION TECH placement today Plan Continue IV Lasix ( Switch to PO soon) Monitor volume status Consulted with Dr. Wells, advanced heart failure specialist, AUTOMATION TECH today Started on lower dose Entresto 24-26 [...] Schmitz DATE: 2023 TIME: 1:41 PM etx [id number] [id number] NoteHNO ID: [id number] Author: ANGELICA SILVA MD Service: Hospital Medicine Author Type: Physician Type: Progress Notes Filed: 07/15/2023 15:41 Note Text: DEPARTMENT OF HOSPITAL MEDICINE PROGRESS NOTE SERVICE DATE: 07/15/2023 SERVICE TIME: 3:33 PM Hospital Medicine/Primary Attending: Angelica Silva MD NIGHT AND WEEKEND COVERAGE: [place] COVERAGE:Team 5 Subjective INTERVAL HPI: Patient is [...] and Airways Line Duration Peripheral 07/15/23 1115 [facility] Short Right Forearm 20 Gauge <1 day DATA: Diagnostic tests reviewed for today's visit: Most recent labs and imaging results. 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 chronic LBBB 77 year old female, who presented to [facility] due to concerns for chest pressure with associated postural lightheadedness and dyspnea She was subsequently admitted to [facility] She had lexiscan stress test which was [...] IV Lasix And she was transferred to [facility] for consideration of inpatient AUTOMATION TECH implantation given her left bundle branch block [...] on Sunday morning. EP tentatively planning for AUTOMATION TECH Sunday Started on lower dose Entresto 24-26 [...] July 15, 2023 TIME: 3:33 PM etx [id number] [id number] NoteHNO ID: [id number] Author: ANGELICA SILVA MD Service: Hospital Medicine Author Type: Physician Type: Progress Notes Filed: 07/14/2023 20:15 Note Text: DEPARTMENT OF HOSPITAL MEDICINE PROGRESS NOTE SERVICE DATE: 07/14/2023 SERVICE TIME: 8:01 PM Hospital Medicine/Primary Attending: Angelica Silva MD NIGHT AND WEEKEND COVERAGE: [place] COVERAGE:Team 5 Subjective INTERVAL HPI: patient is [...] 77 year old female, who presented to [facility] due to concerns for chest pressure with associated postural lightheadedness and dyspnea She was subsequently admitted to [facility] She had lexiscan stress test which was [...] IV Lasix And she was transferred to [facility] for consideration of inpatient AUTOMATION TECH implantation given her left bundle branch block Patient currently reports significant improvement in chest pain and shortness of breath compared to admission X-ray of the chest no acute cardiopulmonary process proBNP improved Seen by EP appreciate input Plan Continue IV Lasix Monitor volume status Consult with Dr. Wells, advanced heart failure specialist, on Sunday morning. EP tentatively planning for AUTOMATION TECH Sunday Started on lower dose Entresto 24-26 [...] July 14, 2023 TIME: 8:01 PM etx [id number] [id number] NoteHNO ID: [id number] Author: ESTELITA LAMB APRN.CNP Service: Cardiovascular Medicine Author Type: Nurse Practitioner Type: Progress Notes Filed: 07/13/2023 09:28 Note Text: Heart and Vascular [facility] Department of Cardiovascular Medicine SECTION OF [facility] Progress Note Elements [...] DO Consulting Physician: Remington Cai MD Primary Swage Tender: Dr. Oneill SERVICE DATE: July 13, 2023 [...] with SOB, chest pain and lightheadedness - [facility] 10/2021: Moderate LAD and D1 proximal disease [...] - QRS = 176 mx - pending AUTOMATION TECH-D implant Palpitations - present FINANCIAL INSTITUTION MANAGER - zio 06/2023: Patient had a min [...] noted on admission - call placed to [facility] EP service to discuss considerations for expedited AUTOMATION TECH-D CAD - chest pain on admission has resolved - [facility] 10/2021: Moderate LAD and D1 proximal disease [...] last evening who agrees with transfer to [facility] for refractory HF despite medical therapy. Patient pending transfer to [facility] via medicine team with consults to EP and advanced heart failure. Patient aware of plan and agreeable. Case discussed with Dr. Lobo and nursing staff. Estelita Lamb APRN.STRATEGIC BUYER 07/13/2023 9:21 AM PAST MEDICAL HISTORY PAST [...] IN 2009 EGD 11/08/2012 (more content not included)...[facility] SystemFcoajglu11-08-7004 Miscellaneous Notes* Telephone Encounter - Rahul Bee MD - 07/13/2023 7:23 AM EST Hospital Medicine Transfer Received page for transfer request from [facility] to [facility]: Sandra Schmitz is 77 year old female who presented with non ischemic decompensated heart failure EF 26%. Suspected runs of tachycardia of unclear origin. Being transferred for possible AUTOMATION TECH. Cannot tolerate betablocker. Currently SBP in 100s. No ICD before. Mild CAD. Reason for transfer: Possible AUTOMATION TECH placement Accepted to hospital medicine service at 7:26PM Rahul Bee MD 7:23 AM documented in this encounterMercy Health St. [facility]02-29-2024 NoteHNO ID: [id number] Author: ESTELITA LAMB APRN.STRATEGIC BUYER Service: Cardiovascular Medicine Author Type: Nurse Practitioner Type: Progress Notes Filed: 07/12/2023 18:56 Note Text: Heart and Vascular [facility] Department of Cardiovascular Medicine SECTION OF [facility] Progress Note Elements [...] DO Consulting Physician: Remington Cai MD Primary Swage Tender: Dr. Oneill SERVICE DATE: July 12, 2023 [...] with SOB, chest pain and lightheadedness - [facility] 10/2021: Moderate LAD and D1 proximal disease [...] 0.9 kg since admission LBBB - pending AUTOMATION TECH-D implant Palpitations - present FINANCIAL INSTITUTION MANAGER - zio 06/2023: Patient had a min [...] noted on admission - call placed to [facility] EP service to discuss considerations for expedited AUTOMATION TECH-D CAD - chest pain on admission has resolved - [facility] 10/2021: Moderate LAD and D1 proximal disease [...] Dr. Castro and nursing staff. Estelita Lamb APRN.STRATEGIC BUYER 07/12/2023 1:26 PM ADDENDUM: Echo today shows EF 26% Discussed patient with Dr. Wellington ant [facility] who is agreeable for patient transfer for refractory heart failure despite medications. We will start transfer process via medicine team with consult to EP and advanced heart failure at [place]. Consideration for AUTOMATION TECH-D implant per Dr. Wellington and EP team. Estelita Lamb APRN.STRATEGIC BUYER 07/12/23 6:55 PM PAST MEDICAL HISTORY PAST MEDICAL HISTORY Diagnosis Date Acute acalculous cholecystitis 05/30/2020 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 09/22/2020 Acute on chronic systolic CHF (congestive heart failure) (HCC) 05/03/2020 Aspiration pneumonia ([facility]) 05/30/2020 Chest pain 05/03/2020 Chest pressure 01/23/2013 [...] UTERUS PAST SURGICAL HIST (more content not included)...[facility] [id number] Note HNO ID: [id number] Author: REMINGTON CAI MD Service: Hospital Medicine Author Type: Physician Type: Progress Notes Filed: 07/12/2023 10:40 Note Text: DEPARTMENT OF HOSPITAL MEDICINE PROGRESS NOTE SERVICE DATE: 07/12/2023 SERVICE TIME: 9:21 AM Hospital Medicine/Primary Attending: Remington Cai MD NIGHT AND WEEKEND COVERAGE: [place] COVERAGE: Nights: [phone], please page [facility] Hospitalist Night coverage pager [phone]. Reason for Admission: Acute decompensated heart failure concern for ventricular tachycardia being the precipitating factor INTERVAL HPI: I called electrophysiology and they had no openings. Could page 2 [facility] [facility] assistant producer on-call Dr. Castro who will see if Dr. Wellington at [place] did not do the pacer defibrillator. My [...] fibrillation. She has seen Dr. Greenfield the assistant producer. She is to be scheduled for pacer [...] needs diuresis. Dr. Virk (more content not included)...[facility] [id number] NoteHNO ID: [id number] Author: ESTELITA LAMB APRN.TIM Service: Cardiovascular Medicine Author Type: Nurse Practitioner Type: Plan of Care Filed: 07/11/2023 15:22 Note Text: Patient stress test reviewed. Shows no ischemia but low EF. Echo planned for tomorrow. Pending AUTOMATION TECH-D as OP >>> Dr. Sams is facilitating discussion on timing of implant. Will follow. Estelita Lamb APRN.STRATEGIC BUYER Cardiology Nurse Practitioner Section of Regional Cardiology [facility] Dept of Cardiovascular Medicine [facility] Heart and Vascular [facility] [address] [address] Office Office Xgycyj [id number] NoteHNO ID: [id number] Author: REMINGTON CAI MD Service: Hospital Medicine Author Type: Physician Type: Progress Notes Filed: 07/11/2023 14:17 Note Text: DEPARTMENT OF HOSPITAL MEDICINE PROGRESS NOTE SERVICE DATE: 07/11/2023 SERVICE TIME: 1:06 PM Hospital Medicine/Primary Attending: Remington Cai MD NIGHT AND WEEKEND COVERAGE: [place] COVERAGE: Nights: [phone], please page [facility] Hospitalist Night coverage pager [phone]. Reason for Admission: Acute decompensated heart failure [...] beta-lorenzo held Nuclear stress test-see below [employer] message sent to concerning pacer defibrillator placement [...] fibrillation. She has seen Dr. Greenfield the assistant producer. She is to be scheduled for pacer [...] Acute on chronic systolic (more content not included)...[facility] 06-12-2023 NoteHNO ID: [id number] Author: FLACA GREENFIELD MD Service: ? Author Type: Physician Type: Progress Notes Filed: 06/12/2023 16:02 Note Text: Heart and Vascular [facility] SECTION OF CARDIAC PACING and ELECTROPHYSIOLOGY OUTPATIENT VISIT DATE June 12, 2023 OUTPATIENT VISIT TYPE NEW PRIMARY CARE PHYSICIAN: Mandeep Houser [address] [place] [address] REFERRING PHYSICIAN: Santo Oneill MD. HISTORY OF PRESENT ILLNESS: 77-year-old female with history of nonischemic cardiomyopathy, severe LV systolic function, LVEF of 30% despite GDMT, LBBB with QRS of 170 ms, was referred for consideration of AUTOMATION TECH-D system implantation for prevention of sudden cardiac [...] on chronic systolic CHF (congestive heart failure) ([facility]) 05/03/2020 Aspiration pneumonia ([facility]) 05/30/2020 Chest pain 05/03/2020 Chest pressure 01/23/2013 Chronic diastolic congestive heart failure ([facility]) 02/14/2021 Clostridium difficile diarrhea 09/28/2020 Complete uterovaginal prolapse Cystocele, midline Essential hypertension 06/14/2020 Homozygous Factor V Leiden mutation ([facility]) 05/03/2020 Hypothyroidism IBS (irritable bowel syndrome) 01/23/2013 [...] Arm Large Adult Physic (more content not included)...[facility]01-04-2024 History of Present illness Narrative* [...] 17, 2023 1:31 PM documented in this encounterMercy Health St. [facility]12-14-2023 Miscellaneous Notes* Telephone Encounter - Bria Shah MA - 04/26/2023 2:37 PM EST Patient notified of results, verbalizes understanding of instructions. Bria Shah MA * Telephone Encounter - Mandeep Houser DO - 04/26/2023 2:24 PM EST Please inform patient that her mammogram is normal/negative. She will need routine screening mammogram in 1 year. Thanks CELIA Gamez documented in this encounterMercy Health St. [facility]12-12-2023 Miscellaneous Notes* Telephone Encounter - Vinita Harman - 04/24/2023 2:06 PM EST Patient is scheduled at on 05/28/[address] Angel Gaxiola. * Telephone Encounter - Mandeep Houser DO - 04/17/2023 4:59 PM EST Patient is supposed to be seen by Driver'S License Reviewing Officer / Cardiology per recommendations by Dr. Oneill. She is asking office if this is scheduled yet? Please clarify Mandeep Houser DO documented in this encounterMercy Health St. [facility]11-27-2023 History of Present illness Narrative* Santo Oneill MD - 04/09/2023 5:19 PM EST Images from the original note were not included. Santo Oneill MD Interventional Cardiology [address] [place] [address] Chief Complaint Patient presents with: Established Patient [...] to correct any errors. documented in this encounterMercy Health St. [facility]10-19-2023 Miscellaneous Notes* Telephone Encounter - Sanjeev [...] months Mandeep Houser DO documented in this encounterMercy Health St. 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 No fevers or chills. Present the last few weeksoff and on PAST MEDICAL HISTORY Diagnosis Date Acute acalculous cholecystitis 05/30/2020 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 09/22/2020 Acute on chronic systolic CHF (congestive heart failure) ([facility]) 05/03/2020 Aspiration pneumonia ([facility]) 05/30/2020 Chest pain 05/03/2020 Chest pressure 01/23/2013 Chronic diastolic congestive heart failure ([facility]) 02/14/2021 Clostridium difficile diarrhea 09/28/2020 Complete uterovaginal prolapse Cystocele, midline Essential hypertension 06/14/2020 Homozygous Factor V Leiden mutation ([facility]) 05/03/2020 Hypothyroidism IBS (irritable bowel syndrome) 01/23/2013 [...] plan. See patient instructions. Mandeep Houser DO [address] [place] [address] documented in [address] encounterMercy Health St. [facility]08-29-2023 Instructions* Patient Instructions* Mandeep Houser DO - 01/09/2023 1:53 PM EDT Decrease dose of thyroid medication to 88 mcg a day, new rx sent [facility] Recheck labs in 1 month, these are ordered. Can be done non fasting If front of neck symptoms aren't better, I will order ultrasound. Let me konw documented in this encounterMercy Health St. [facility]08-29-2023 Miscellaneous Notes* Telephone Encounter - Sandra [...] and advise. Sandra Wells documented in this encounterMercy Health St. Joseph [facility] Hospital08-17-2023 Miscellaneous Notes* Telephone Encounter - Rupali [...] when able. Thank you. documented in this encounterMercy Health St. Joseph [facility] Hospital08-08-2023 Miscellaneous Notes* Telephone Encounter - Alejandrina Barnes LPN - 12/19/2022 8:59 AM EDT Patient notified. Verbalized understanding. * Telephone Encounter - Mandeep Houser DO - 12/19/2022 8:08 AM EDT Please inform patient that her CXR is normal Mandeep Houser DO documented in this encounterMercy Health St. [facility]08-03-2023 History of Present illness Narrative* Faye [...] 14, 2022 10:38 AM documented in this encounterMercy Health St. Joseph [facility]06-19-2023 Miscellaneous Notes* Telephone Encounter - Leyla Ferreira RN - 10/30/2022 10:48 AM EDT Addendum completed by Dr. Mata and faxed to [facility]. * Telephone Encounter - Sincere Berger RN - 10/24/2022 1:25 PM EDT Received fax from [facility] requesting addendum to 08/[address]. [address] Testrakes desk. documented in this encounterMercy Health St. Joseph [facility]06-04-2023 Miscellaneous Notes* Telephone Encounter - Estelita Pinon APRN.CNP - 10/15/2022 9:26 AM EDT Reached out and informed patient. States today she is feeling better. At this time she is declining antivirals. She was informed she can take antivirals up until day 5. * Telephone Encounter - Estelita Pinno APRN.CNP - 10/15/2022 8:02 AM EDT You [...] care provider or schedule a visit with [facility]. A test is not recommended to return to work/school when meeting the above criteria. Estelita Pinon APRN.CNP documented in this encounterMercy Health St. Joseph [facility]06-03-2023 History of Present illness Narrative* Shanell [...] plan. Shanell Cox APRN.CNP documented in this encounterMercy Health St. Joseph [facility]05-31-2023 History of Present illness Narrative* Mandeep [...] on chronic systolic CHF (congestive heart failure) ([facility]) 05/03/2020 Aspiration pneumonia ([facility]) 05/30/2020 Chest pain 05/03/2020 Chest pressure 01/23/2013 Chronic diastolic congestive heart failure ([facility]) 02/14/2021 Clostridium difficile diarrhea 09/28/2020 Complete uterovaginal prolapse Cystocele, midline Essential hypertension 06/14/2020 Homozygous Factor V Leiden mutation ([facility]) 05/03/2020 Hypothyroidism IBS (irritable bowel syndrome) 01/23/2013 [...] See patient instructions. Mandeep Houser DO [address] [place] [address] documented in [address] encounterMercy Health St. [facility]05-11-2023 Miscellaneous Notes* Telephone Encounter - Leyla Ferreira RN - 09/21/2022 2:51 PM EDT Refaxed forms to [employer]. * Telephone Encounter - Rachelle Stout LPN - 09/21/2022 1:38 PM EDT Shana varner called stating that fax sent only came thru as every other page and the whole fax was not received. Please refax paper work to [phone] Rachelle Stout LPN documented in this encounterMercy Health St. Joseph [facility]05-01-2023 Miscellaneous Notes* Telephone Encounter - Sincere Berger RN - 09/11/2022 11:44 AM EDT Received fax from [facility] for Orthosis order. Forms filled out and signed by Dr. Mata andfaxed back to [place] with office notes. Fax number: [phone] documented in this encounterMercy Health St. Joseph [facility]04-24-2023 History of Present illness Narrative* Dorinda [...] 2022 TIME: 2:30 PM documented in this encounterMercy Health St. Joseph [facility]04-13-2023 History of Present illness Narrative* Mandeep [...] OMT in the past Has a [employer] color television console monitor in place currently Abdominal discomfort, fullness feeling and distension feeling, gassiness/intermittent nausea, hx ofcholecystectomy >1 year ago, no vomiting. Feels like she could at times. No blood in stool. Symptoms worsening over weeks time PAST MEDICAL HISTORY Diagnosis Date Acute acalculous cholecystitis 05/30/2020 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 09/22/2020 Acute on chronic systolic CHF (congestive heart failure) ([facility]) 05/03/2020 Aspiration pneumonia ([facility]) 05/30/2020 Chest pain 05/03/2020 Chest pressure 01/23/2013 Chronic diastolic congestive heart failure ([facility]) 02/14/2021 Clostridium difficile diarrhea 09/28/2020 Complete uterovaginal prolapse Cystocele, midline Essential hypertension 06/14/2020 Homozygous Factor V Leiden mutation ([facility]) 05/03/2020 Hypothyroidism IBS (irritable bowel syndrome) 01/23/2013 [...] See patient instructions. Mandeep Houser DO [address] [place] [address] documented in [address] encounterMercy Health St. [facility]04-03-2023 History of Present illness Narrative* Santo Oneill MD - 08/14/2022 11:58 AM EDT Images from the original note were not included. Santo Oneill MD Interventional Cardiology [facility] [address], [place] [address] [phone] Chief Complaint Patient presents with: Established Patient [...] on chronic systolic CHF (congestive heart failure) ([facility]) 05/03/2020 Aspiration pneumonia ([facility]) 05/30/2020 Chest pain 05/03/2020 Chest pressure 01/23/2013 Chronic diastolic congestive heart failure ([facility]) 02/14/2021 Clostridium difficile diarrhea 09/28/2020 Complete uterovaginal prolapse Cystocele, midline Essential hypertension 06/14/2020 Homozygous Factor V Leiden mutation ([facility] [place]) 05/03/2020 Hypothyroidism IBS (irritable bowel syndrome) 01/23/2013 [...] INSTRUCTIONS Patient Name: Sandra Schmitz Clinic Number: [id number] Skin prepped and cleansed with alcohol Patch secured to prepped area Monitor Activated Serial #: [id number] Patient Instructed: Prescribed order timeframe Bathing guidelines Usage of event button and diary documentation Return of monitor at the end of prescribed order Call with problems [phone] or [phone] ext. [phone] Patient expresses a good understanding of instructions Anni Roldan * Santo Oneill MD - 08/14/2022 11:57 AM EDT Images from the original note were not included. Santo Oneill MD Interventional Cardiology [facility] [address], [place] [address] [phone] Chief Complaint Patient presents with: Established Patient [...] to correct any errors. documented in this encounterMer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 Right mid [...] on chronic systolic CHF (congestive heart failure) ([facility]) 05/03/2020 Aspiration pneumonia ([facility]) 05/30/2020 Chest pain 05/03/2020 Chest pressure 01/23/2013 Chronic diastolic congestive heart failure ([facility]) 02/14/2021 Clostridium difficile diarrhea 09/28/2020 Complete uterovaginal prolapse Cystocele, midline Essential hypertension 06/14/2020 Homozygous Factor V Leiden mutation ([facility]) 05/03/2020 Hypothyroidism IBS (irritable bowel syndrome) 01/23/2013 [...] plan. See patient instructions. Mandeep Houser DO [address] [place] [address] documented in [address]Mer[facility]03-30-20[facility] History of Present illness Narrative* Mandeep [...] on chronic systolic CHF (congestive heart failure) ([facility]) 05/03/2020 Aspiration pneumonia ([facility]) 05/30/2020 Chest pain 05/03/2020 Chest pressure 01/23/2013 [...] plan. See patient instructions. Mandeep Houser DO [address] [place] [address] documented in [address] encounterMer[facility]03-23-2023 History of Present illness Narrative* Linda [...] 03, 2022 10:33 AM documented in this encounterMercy [facility] St. [facility]03-15-2023 Miscellaneous Notes* Telephone Encounter - Palak [...] day Alejandrina Harvey APRN.CNP documented in this encounterMercy Health St. [facility]03-14-2023 History of Present illness Narrative* Abraham [...] 25, 2022 3:03 PM documented in this encounterMercy [facility] St. [facility]03-10-2023 Instructions* Patient Instructions* Alejandrina Harvey APRN.CNP [...] your usual activities immediately. documented in this encounterMercy [facility] St. [facility]03-10-2023 History of Present illness Narrative* Alejandrina [...] on chronic systolic CHF (congestive heart failure) ([facility]) 05/03/2020 Aspiration pneumonia ([facility]) 05/30/2020 Chest pain 05/03/2020 Chest pressure 01/23/2013 [...] ICD10: Z13.820 - DXA-AXIAL SKELETON Alejandrina Harvey APRN.STRATEGIC BUYER documented in this encounterMercy Health St. [facility]03-07-2023 History of Present illness Narrative* Mandeep [...] plan. See patient instructions. Mandeep Houser DO [address] [place] [address] documented in [address] encounterMer[facility]01-12-2023 Miscellaneous Notes* Telephone Encounter - Griselda [...] concerns. Mandeep Houser DO documented in this encounterMercy Health St. [facility]01-03-2023 Miscellaneous Notes* Telephone Encounter - Leyla [...] from pharmacy's request. Please send RX to [facility] in [place]. documented in this encounterMercy Health St. [facility]12-21-2022 History of Present illness Narrative* Mandeep [...] See patient instructions. Mandeep Houser DO [address] [place] [address] documented in [address] encounterMer[facility]12-21-2022 Miscellaneous Notes* Telephone Encounter - Mandeep [...] Please advise the patient. documented in this encounterMercy Health St. [facility]11-23-2022 History of Present illness Narrative* Enmanuel Sahu - 04/05/2022 11:02 AM EST POPULATION HEALTH NAVIGATION OUTREACH Action/I RP Outreach: Contacted patient to schedule ROBEL Consult for Chronic pain of right ankle [M25.571, G89.29] and patient requested to call back [phone]. Any agent can assist. Pt identified by name and : YES, via [employer] Outreach Outcome/Action Spoke to patient or caregiver: [...] 05, 2022 11:03 AM documented in this encounterMercy Health St. [facility]11-18-2022 History of Present illness Narrative* Santisujit Sahu - 03/31/2022 2:07 PM EST POPULATION HEALTH NAVIGATION OUTREACH Action/I RP Outreach: LVM for Patient to call back and schedule ROBEL Consult for Chronic pain of right ankle [M25.571, G89.29]. [phone]. Any agent can assist. Pt identified by name and : YES, via [employer] Outreach Outcome/Action Unable to reach patient: Left [...] 31, 2022 2:07 PM documented in this encounterMercy Health St. [facility]10-31-2022 Miscellaneous Notes* Telephone Encounter - Kelsey Costa LPN - 03/13/2022 9:59 AM EDT Pt. informed, * Telephone Encounter - Alejandrina Harvey APRN.CNP - 03/13/2022 7:45 AM EDT Please let Sandra know that her COVID and flu tests are negative. Alejandrina Harvey APRN.CNP documented in this encounterMercy Health St. [facility]10-28-2022 Miscellaneous Notes* Telephone Encounter - Griselda aHrris Ma - 03/10/2022 11:08 AM EDT Faxed 03/10/2022 BRANDI Harris Ma * Telephone Encounter - Alejandrina Harvey APRN.CNP - 03/10/2022 10:14 AM EDT Please fax podiatry consult to Dr. Contreras's office. Alejandrina Harvey APRN.CNP documented in this encounterMercy Health St. [facility]10-03-2022 History of Present illness Narrative* Santo Oneill MD - 02/13/2022 12:21 PM EDT Images from the original note were not included. Santo Oneill MD Interventional Cardiology [address] [place] [address] Chief Complaint Patient presents with: Follow Up [...] on chronic systolic CHF (congestive heart failure) ([facility]) 05/03/2020 Aspiration pneumonia ([facility]) 05/30/2020 Chest pain 05/03/2020 Chest pressure 01/23/2013 [...] 1 tablet by mouth once daily. 90 [id number] L. acidophilus/L. rhamnosus ([facility]) Take [...] to correct any errors. documented in this encounterMercy Health St. [facility]09-09-2022 History of Present illness Narrative* Alejandrina Harvey, MELI.STRATEGIC BUYER - 01/20/2022 10:51 AM EDT Chief Complaint Patient presents with: Follow Up: Review lab work HPI Sandra Schmitz is a 76 year old female who presents here today for Above Complaints. Today: Would like to review her lab results today. Knows that her cholesterol still elevated, but has not tolerated Lipitor or Crestor. She is awaiting a call back from her silver buffer in regards to possibly starting a new [...] with cardiology. 4. Coronary artery disease involving [place] coronary artery of [place] heart with other form of angina pectoris [...] TABLET Alejandrina Harvey APRN.TIM documented in this encounterMercy Health St. [facility]09-06-2022 Miscellaneous Notes* Telephone Encounter - Leyla [...] mg of Crestor? Thank you, Saqib. MELI Culp.STRATEGIC BUYER documented in this encounterMercy Health St. [facility]08-16-2022 Miscellaneous Notes* Telephone Encounter - Anni [...] you. Anni Herrera LPN documented in this encounterMercy Health St. [facility]08-08-2022 Instructions* Patient Instructions* Sincere Perkins PA-C - 12/19/2021 9:33 AM EDT The following instructions are important for you related to your office visit today with the [facility]. -Continue omeprazole for 1-2 [...] you should contact our office immediately @ [phone] and ask to be transferred to the General Surgery department. documented in this encounterMercy Health St. [facility]08-08-2022 History of Present illness Narrative* Sincere Perkins PA-C - 12/19/2021 9:15 AM EDT FOLLOW UP VISIT - ENDOSCOPY NAME: Sandra Ricardo [facility] NO.: [id number] DATE OF SERVICE: 12/19/2021 : 1945 REFERRING PHYSICIAN: Mandeep Houser DO Sandra is a patient I am following with Dr. Marshall for history of colon polyps as well as upper GI complaints. Dr. Marshall performed upper and lower endoscopy on 12/05/21 at [facility]. The patient was found to have gastritis [...] which included preparing to see the patient, [id number] patient care, completing clinical documentation, obtaining and/or reviewing separately obtained history, counseling and educating the patient/family/caregiver, independently interpretin g results (not separately reported), and communicating results to the patient/family/caregiver. Sincere Perkins PA-C documented in this encounterMercy Health St. [facility]07-28-2022 Miscellaneous Notes* Telephone Encounter - Rula Lopez RN - 12/08/2021 11:11 AM EDT Pt. notified. Please send refill for Losartan to [facility]. Thank you. Rula Lopez RN * Telephone Encounter - Rula Lopez RN - 12/08/2021 11:11 AM EDT Images from the original note were not included. Estelita Culp APRN.STRATEGIC BUYER You; Santo Oneill MD 12 minutes ago [...] hears back from someone. documented in this encounterMercy Health St. [facility]07-25-2022 History and physical note * Wes [...] a colonoscopy performed by Dr. Marshall in [place] for 04/04/21, however procedure was cancelled. Patient [...] patient was offered a surgery/procedure at a [facility]. I have counseled the patient [...] mail. Sincere Perkins PA-C documented in this encounterMercy Health St. [facility]07-19-2022 Miscellaneous Notes* Telephone Encounter - Sincere [...] upper and lower scope with [facility] in [place] and is on miralax/dulcalax as her prep [...] moved up to 12/05 with [facility] in [place] for upper and lower scopes. LV of [...] 02/20/2022 colon egd ko documented in this encounterMercy Health St. [facility]07-19-2022 Miscellaneous Notes* Telephone Encounter - Rula [...] stomach problems. Please advise. documented in this encounterMercy Health St. [facility]06-23-2022 History of Present illness Narrative* Vinita Flores Pss - 11/03/2021 3:26 PM EDT Patient seen by Elisha Perkins on 11/02 for consult. * Dejan Lorenzo - 11/01/2021 11:45 AM EDT Patient due for screening colonoscopy . Patient is not appropriate for open access. Please scheduleoffice consult Dejan Lorenzo documented in this encounterMercy Health St. [facility]06-23-2022 History of Present illness Narrative* Sincere [...] a colonoscopy performed by Dr. Marshall in [place] for 04/04/21, however procedure was cancelled. Patient [...] entered by the nurse and reviewed by md Nursing Notes: Maritza Contreras LPN 11/02/2021 1:34 [...] patient was offered a surgery/procedure at a [facility]. I have counseled the patient [...] mail. Sincere Perkins PA-C documented in this encounterMercy Health St. [facility]06-22-2022 Nurse Note* Maritza Contreras LPN - [...] 2020 Maritza Contreras LPN documented in this encounterMercy Health St. [facility]06-16-2022 Miscellaneous Notes* Telephone Encounter - Estelita Hermosillo LPN - 10/27/2021 10:51 AM EDT I spoke to and informed her of Estelita's response to lab results. Patient voiced understanding. Estelita Hermosillo LPN * Telephone Encounter - Estelita Hermosillo LPN - 10/27/2021 10:50 AM EDT ----- Message from Estelita Culp APRN.STRATEGIC BUYER sent at 10/27/2021 10:39 AM EDT ----- Please call patient and notify her of results. BMP and CBC stable. Thank you! documented in this encounterMercy Health St. [facility]06-16-2022 History of Present illness Narrative* RT [...] 2021 TIME: 1:36 PM documented in this encounterMercy Health St. [facility]06-13-2022 Miscellaneous Notes* Telephone Encounter - Kelsey Shannon RN - 10/24/2021 4:00 PM EDT Patient scheduled for left heart cath, with Dr Oneill on 11/10/21. Instructions reviewed. Questions answered. Patient verbalized understanding. Instructions were as follows: -Arrive to [facility] at time assigned by [facility] director of cardiac cath lab staff in phone call 2-5 PM on [...] someone drive you home from your procedure. -director of cardiac cath lab policy is pt not be alone first evening Office phone number provided for questions or concerns. Kelsey Shannon RN * Telephone Encounter - Luzma Tejeda [facility] - 10/24/2021 1:33 PM EDT Schedule C on 11/10/[address] Oneill documented in this encounterMercy Health St. [facility]06-13-2022 History of Present illness Narrative* Kelsey [...] Dr Ragsdale after CT documented in this encounterMercy Health St. [facility]06-08-2022 Instructions* Patient Instructions* Alejandrina Harvey APRN.CNP - 10/19/2021 12:28 PM EDT Schedule your CT scan of your abdomen and pelvis. I'll get back with you in regards to the clearance for you colonoscopy. documented in this encounterMercy Health St. [facility]06-08-2022 History of Present illness Narrative* Alejandrina [...] PROCEDURE) Alejandrina Harvey APRN.TIM documented in this encounterMercy Health St. [facility]05-11-2022 History of Present illness Narrative* Mandeep [...] on chronic systolic CHF (congestive heart failure) ([facility]) 05/03/2020 Aspiration pneumonia ([facility]) 05/30/2020 Chest pain 05/03/2020 Chest pressure 01/23/2013 Chronic diastolic congestive heart failure ([facility]) 02/14/2021 Clostridium difficile diarrhea 09/28/2020 Complete uterovaginal prolapse Cystocele, midline Essential hypertension 06/14/2020 Homozygous Factor V Leiden mutation ([facility]) 05/03/2020 Hypothyroidism IBS (irritable bowel syndrome) 01/23/2013 [...] plan. See patient instructions. Mandeep Houser DO [address] [place] [address] documented in this encounterMercy Health [address]. [facility]05-09-2022 Miscellaneous Notes* Telephone Encounter - Griselda [...] Provider: ALEJANDRINA HARVEY APRN.CNP documented in this encounterMercy Health St. [facility]04-22-2022 Miscellaneous Notes* Telephone Encounter - Girselda Harris Ma - 09/02/2021 3:27 PM EDT [...] appointment. Alejandrina Harvey APRN.CNP documented in this encounterMercy Health St. [facility]04-21-2022 Instructions* Patient Instructions* Alejandrina Harvey APRN.CNP - 09/01/2021 3:57 PM EDT Have your xrays completed. I typically have results in 24 hours or less. Have your lab work completed, fasting, when able. We typically have results in 1-2 days. documented in this encounter[address]21-2022 History of Present illness Narrative* Alejandrina Yasir, BUSINESS STRATEGY MANAGER.STRATEGIC BUYER - 09/01/2021 3:40 PM EDT Patient presents [...] on chronic systolic CHF (congestive heart failure) ([facility]) 05/03/2020 Aspiration pneumonia ([facility]) 05/30/2020 Chest pain 05/03/2020 Chest pressure 01/23/2013 Chronic diastolic congestive heart failure ([facility]) 02/14/2021 Clostridium difficile diarrhea 09/28/2020 Complete uterovaginal prolapse Cystocele, midline Essential hypertension 06/14/2020 Homozygous Factor V Leiden mutation ([facility]) 05/03/2020 Hypothyroidism IBS (irritable bowel syndrome) 01/23/2013 [...] ICD10: R79.9 - HGB A1C Alejandrina Harvey APRN.STRATEGIC BUYER To ER if develops chest pain, shortness of breath, or severe worsening of symptoms. Discussed risks, benefits, alternatives, and potential side effects of medications. Patient expressed understanding and agreed with the plan. Alejandrina Harvey APRN.STRATEGIC BUYER [address] [place] [address] documented in [address] encounterMer[facility]. [facility]04-18-2022 Miscellaneous Notes* Telephone Encounter - Griselda [...] if okay to schedule. documented in this encounterMercy Health St. [facility]04-12-2022 History of Present illness Narrative* Frazana Rodriguez LPN - 08/23/2021 10:23 AM EDT [...] 23, 2021 10:23 AM documented in this encounterMercy Health St. [facility]04-04-2022 Miscellaneous Notes* Letter - Mammography Coordinator - 08/15/2021 1:00 PM EDT August 15, 2021 PID: [id number] Sandra Schmitz [address] [place] [address] Dear Ms. Schmitz, We are pleased to [...] report will be kept on file [facility] as part of your permanent medical record and are available for your continuing care. Thank you for allowing us to help in meeting your health care needs. Sincerely, Dr. Zendejas Interpreting Radiologist [facility] (Normal over 40) documented in this encounterMercy Health St. [facility]04-04-2022 History of Present illness Narrative* Polina [...] 15, 2021 9:50 AM documented in this encounterMercy Health St. [facility]03-29-2022 History of Present illness Narrative* Estelita [...] treatment included: Therapeutic exercise, Manual therapy, Self- chcf management and Patient/Family/Caregiver Education. Pt. Reports reduced [...] 07/11/21 through 09/05/21 Goals updated on 08/09/2021. [place] in home exercise program. -- PARTIALLY MET [...] the elbow felt somewhat looser after the [facility] last visit but then returned back [...] and function . Patient education as noted. Self-Fpc Management: 1: *advised pt. to avoid carrying [...] (timed and untimed codes) : 30 Estelita Maardiaga PT documented in this encounterMercy Health St. [facility]08-25-2021 History of Present illness Narrative* Nely [...] 05, 2021 10:18 AM documented in this encounterMercy Health St. [facility]03-22-2021 History of Present illness Narrative* Luzma [...] 02, 2020 12:14 PM documented in this encounterMercy Health St. [facility]01-17-2021 History of Past illness Narrative* Problem Noted Date Resolved Date Aspiration pneumonia 05/30/2020 09/22/2020 Post-operative state 05/24/2020 06/14/2020 Shortness of breath 05/03/2020 06/14/2020 Chest pain 05/03/2020 06/14/2020 documented as of this encounter (statuses as of 08/09/2021) [address]17-2021 History of Past illness Narrative* Problem Noted Date Resolved Date Aspiration pneumonia 05/30/2020 09/22/2020 Post-operative state 05/24/2020 06/14/2020 Shortness of breath 05/03/2020 06/14/2020 Chest pain 05/03/2020 06/14/2020 documented as of this encounter (statuses as of 08/16/2021) [address]17-2021 History of Past illness Narrative* Problem Noted Date Resolved Date Aspiration pneumonia 05/30/2020 09/22/2020 Post-operative state 05/24/2020 06/14/2020 Shortness of breath 05/03/2020 06/14/2020 Chest pain 05/03/2020 06/14/2020 documented as of this encounter (statuses as of 08/17/2021) [address]17-2021 History of Past illness Narrative* Problem Noted Date Resolved Date Aspiration pneumonia 05/30/2020 09/22/2020 Post-operative state 05/24/2020 06/14/2020 Shortness of breath 05/03/2020 06/14/2020 Chest pain 05/03/2020 06/14/2020 documented as of this encounter (statuses as of 08/23/2021) [address]17-2021 History of Past illness Narrative* Problem Noted Date Resolved Date Aspiration pneumonia 05/30/2020 09/22/2020 Post-operative state 05/24/2020 06/14/2020 Shortness of breath 05/03/2020 06/14/2020 Chest pain 05/03/2020 06/14/2020 documented as of this encounter (statuses as of 09/02/2021) [address]17-2021 History of Past illness Narrative* Problem Noted Date Resolved Date Aspiration pneumonia 05/30/2020 09/22/2020 Post-operative state 05/24/2020 06/14/2020 Shortness of breath 05/03/2020 06/14/2020 Chest pain 05/03/2020 06/14/2020 documented as of this encounter (statuses as of 09/07/2021) [address]17-2021 History of Past illness Narrative* Problem Noted Date Resolved Date Aspiration pneumonia 05/30/2020 09/22/2020 Post-operative state 05/24/2020 06/14/2020 Shortness of breath 05/03/2020 06/14/2020 Chest pain 05/03/2020 06/14/2020 documented as of this encounter (statuses as of 09/19/2021) [address]17-2021 History of Past illness Narrative* Problem Noted Date Resolved Date Aspiration pneumonia 05/30/2020 09/22/2020 Post-operative state 05/24/2020 06/14/2020 Shortness of breath 05/03/2020 06/14/2020 Chest pain 05/03/2020 06/14/2020 documented as of this encounter (statuses as of 09/21/2021) [address]17-2021 History of Past illness Narrative* Problem Noted Date Resolved Date Aspiration pneumonia 05/30/2020 09/22/2020 Post-operative state 05/24/2020 06/14/2020 Shortness of breath 05/03/2020 06/14/2020 Chest pain 05/03/2020 06/14/2020 documented as of this encounter (statuses as of 09/29/2021) [address]17-2021 History of Past illness Narrative* Problem Noted Date Resolved Date Aspiration pneumonia 05/30/2020 09/22/2020 Post-operative state 05/24/2020 06/14/2020 Shortness of breath 05/03/2020 06/14/2020 Chest pain 05/03/2020 06/14/2020 documented as of this encounter (statuses as of 10/20/2021) [address]17-2021 History of Past illness Narrative* Problem Noted Date Resolved Date Aspiration pneumonia 05/30/2020 09/22/2020 Post-operative state 05/24/2020 06/14/2020 Shortness of breath 05/03/2020 06/14/2020 Chest pain 05/03/2020 06/14/2020 documented as of this encounter (statuses as of 10/24/2021) [address]17-2021 History of Past illness Narrative* Problem Noted Date Resolved Date Aspiration pneumonia 05/30/2020 09/22/2020 Post-operative state 05/24/2020 06/14/2020 Shortness of breath 05/03/2020 06/14/2020 Chest pain 05/03/2020 06/14/2020 documented as of this encounter (statuses as of 10/27/2021) [address]17-2021 History of Past illness Narrative* Problem Noted Date Resolved Date Aspiration pneumonia 05/30/2020 09/22/2020 Post-operative state 05/24/2020 06/14/2020 Shortness of breath 05/03/2020 06/14/2020 Chest pain 05/03/2020 06/14/2020 documented as of this encounter (statuses as of 10/28/2021) [address]17-2021 History of Past illness Narrative* Problem Noted Date Resolved Date Aspiration pneumonia 05/30/2020 09/22/2020 Post-operative state 05/24/2020 06/14/2020 Shortness of breath 05/03/2020 06/14/2020 Chest pain 05/03/2020 06/14/2020 documented as of this encounter (statuses as of 11/03/2021) [address]17-2021 History of Past illness Narrative* Problem Noted Date Resolved Date Aspiration pneumonia 05/30/2020 09/22/2020 Post-operative state 05/24/2020 06/14/2020 Shortness of breath 05/03/2020 06/14/2020 Chest pain 05/03/2020 06/14/2020 documented as of this encounter (statuses as of 11/03/2021) [address]17-2021 History of Past illness Narrative* Problem Noted Date Resolved Date Aspiration pneumonia 05/30/2020 09/22/2020 Post-operative state 05/24/2020 06/14/2020 Shortness of breath 05/03/2020 06/14/2020 Chest pain 05/03/2020 06/14/2020 documented as of this encounter (statuses as of 11/10/2021) [address]17-2021 History of Past illness Narrative* Problem Noted Date Resolved Date Aspiration pneumonia 05/30/2020 09/22/2020 Post-operative state 05/24/2020 06/14/2020 Shortness of breath 05/03/2020 06/14/2020 Chest pain 05/03/2020 06/14/2020 documented as of this encounter (statuses as of 11/29/2021) [address]17-2021 History of Past illness Narrative* Problem Noted Date Resolved Date Aspiration pneumonia 05/30/2020 09/22/2020 Post-operative state 05/24/2020 06/14/2020 Shortness of breath 05/03/2020 06/14/2020 Chest pain 05/03/2020 06/14/2020 documented as of this encounter (statuses as of 12/06/2021) [address]17-2021 History of Past illness Narrative* Problem Noted Date Resolved Date Aspiration pneumonia 05/30/2020 09/22/2020 Post-operative state 05/24/2020 06/14/2020 Shortness of breath 05/03/2020 06/14/2020 Chest pain 05/03/2020 06/14/2020 documented as of this encounter (statuses as of 12/08/2021) [address]17-2021 History of Past illness Narrative* Problem Noted Date Resolved Date Aspiration pneumonia 05/30/2020 09/22/2020 Post-operative state 05/24/2020 06/14/2020 Shortness of breath 05/03/2020 06/14/2020 Chest pain 05/03/2020 06/14/2020 documented as of this encounter (statuses as of 12/27/2021) [address]17-2021 History of Past illness Narrative* Problem Noted Date Resolved Date Aspiration pneumonia 05/30/2020 09/22/2020 Post-operative state 05/24/2020 06/14/2020 Shortness of breath 05/03/2020 06/14/2020 Chest pain 05/03/2020 06/14/2020 documented as of this encounter (statuses as of 12/27/2021) [address]17-2021 History of Past illness Narrative* Problem Noted Date Resolved Date Aspiration pneumonia 05/30/2020 09/22/2020 Post-operative state 05/24/2020 06/14/2020 Shortness of breath 05/03/2020 06/14/2020 Chest pain 05/03/2020 06/14/2020 documented as of this encounter (statuses as of 01/19/2022) [address]17-2021 History of Past illness Narrative* Problem Noted Date Resolved Date Aspiration pneumonia 05/30/2020 09/22/2020 Post-operative state 05/24/2020 06/14/2020 Shortness of breath 05/03/2020 06/14/2020 Chest pain 05/03/2020 06/14/2020 documented as of this encounter (statuses as of 01/19/2022) [address]17-2021 History of Past illness Narrative* Problem Noted Date Resolved Date Aspiration pneumonia 05/30/2020 09/22/2020 Post-operative state 05/24/2020 06/14/2020 Shortness of breath 05/03/2020 06/14/2020 Chest pain 05/03/2020 06/14/2020 documented as of this encounter (statuses as of 01/20/2022) [address]17-2021 History of Past illness Narrative* Problem Noted Date Resolved Date Aspiration pneumonia 05/30/2020 09/22/2020 Post-operative state 05/24/2020 06/14/2020 Shortness of breath 05/03/2020 06/14/2020 Chest pain 05/03/2020 06/14/2020 documented as of this encounter (statuses as of 02/13/2022) [address]17-2021 History of Past illness Narrative* Problem Noted Date Resolved Date Aspiration pneumonia 05/30/2020 09/22/2020 Post-operative state 05/24/2020 06/14/2020 Shortness of breath 05/03/2020 06/14/2020 Chest pain 05/03/2020 06/14/2020 documented as of this encounter (statuses as of 03/10/2022) [address]17-2021 History of Past illness Narrative* Problem Noted Date Resolved Date Aspiration pneumonia 05/30/2020 09/22/2020 Post-operative state 05/24/2020 06/14/2020 Shortness of breath 05/03/2020 06/14/2020 Chest pain 05/03/2020 06/14/2020 documented as of this encounter (statuses as of 03/13/2022) [address]17-2021 History of Past illness Narrative* Problem Noted Date Resolved Date Aspiration pneumonia 05/30/2020 09/22/2020 Post-operative state 05/24/2020 06/14/2020 Shortness of breath 05/03/2020 06/14/2020 Chest pain 05/03/2020 06/14/2020 documented as of this encounter (statuses as of 03/31/2022) [address]17-2021 History of Past illness Narrative* Problem Noted Date Resolved Date Aspiration pneumonia 05/30/2020 09/22/2020 Post-operative state 05/24/2020 06/14/2020 Shortness of breath 05/03/2020 06/14/2020 Chest pain 05/03/2020 06/14/2020 documented as of this encounter (statuses as of 04/05/2022) [facility]01-17-2021 History of Past illness Narrative* Problem Noted Date Resolved Date Aspiration pneumonia 05/30/2020 09/22/2020 Post-operative state 05/24/2020 06/14/2020 Shortness of breath 05/03/2020 06/14/2020 Chest pain 05/03/2020 06/14/2020 documented as of this encounter (statuses as of 05/03/2022) [facility]01-17-2021 History of Past illness Narrative* Problem Noted Date Resolved Date Aspiration pneumonia 05/30/2020 09/22/2020 Post-operative state 05/24/2020 06/14/2020 Shortness of breath 05/03/2020 06/14/2020 Chest pain 05/03/2020 06/14/2020 documented as of this encounter (statuses as of 05/18/2022) [address]17-2021 History of Past illness Narrative* Problem Noted Date Resolved Date Aspiration pneumonia 05/30/2020 09/22/2020 Post-operative state 05/24/2020 06/14/2020 Shortness of breath 05/03/2020 06/14/2020 Chest pain 05/03/2020 06/14/2020 documented as of this encounter (statuses as of 07/12/2022) [facility]01-17-2021 History of Past illness Narrative* Problem Noted Date Resolved Date Aspiration pneumonia 05/30/2020 09/22/2020 Post-operative state 05/24/2020 06/14/2020 Shortness of breath 05/03/2020 06/14/2020 Chest pain 05/03/2020 06/14/2020 documented as of this encounter (statuses as of 07/18/2022) [facility]01-17-2021 History of Past illness Narrative* Problem Noted Date Resolved Date Aspiration pneumonia 05/30/2020 09/22/2020 Post-operative state 05/24/2020 06/14/2020 Shortness of breath 05/03/2020 06/14/2020 Chest pain 05/03/2020 06/14/2020 documented as of this encounter (statuses as of 07/25/2022) [address]17-2021 History of Past illness Narrative* Problem Noted Date Resolved Date Aspiration pneumonia 05/30/2020 09/22/2020 Post-operative state 05/24/2020 06/14/2020 Shortness of breath 05/03/2020 06/14/2020 Chest pain 05/03/2020 06/14/2020 documented as of this encounter (statuses as of 07/27/2022) [address]17-2021 History of Past illness Narrative* Problem Noted Date Resolved Date Aspiration pneumonia 05/30/2020 09/22/2020 Post-operative state 05/24/2020 06/14/2020 Shortness of breath 05/03/2020 06/14/2020 Chest pain 05/03/2020 06/14/2020 documented as of this encounter (statuses as of 08/03/2022) [place] [id number] History of Past illness Narrative* Problem Noted Date Resolved Date Aspiration pneumonia 05/30/2020 09/22/2020 Post-operative state 05/24/2020 06/14/2020 Shortness of breath 05/03/2020 06/14/2020 Chest pain 05/03/2020 06/14/2020 documented as of this encounter (statuses as of 08/10/2022) [address]17-2021 History of Past illness Narrative* Problem Noted Date Resolved Date Aspiration pneumonia 05/30/2020 09/22/2020 Post-operative state 05/24/2020 06/14/2020 Shortness of breath 05/03/2020 06/14/2020 Chest pain 05/03/2020 06/14/2020 documented as of this encounter (statuses as of 08/10/2022) [address]17-2021 History of Past illness Narrative* Problem Noted Date Resolved Date Aspiration pneumonia 05/30/2020 09/22/2020 Post-operative state 05/24/2020 06/14/2020 Shortness of breath 05/03/2020 06/14/2020 Chest pain 05/03/2020 06/14/2020 documented as of this encounter (statuses as of 08/14/2022) [facility]01-17-2021 History of Past illness Narrative* Problem Noted Date Resolved Date Aspiration pneumonia 05/30/2020 09/22/2020 Post-operative state 05/24/2020 06/14/2020 Shortness of breath 05/03/2020 06/14/2020 Chest pain 05/03/2020 06/14/2020 documented as of this encounter (statuses as of 08/25/2022) [address]17-2021 History of Past illness Narrative* Problem Noted Date Resolved Date Aspiration pneumonia 05/30/2020 09/22/2020 Post-operative state 05/24/2020 06/14/2020 Shortness of breath 05/03/2020 06/14/2020 Chest pain 05/03/2020 06/14/2020 documented as of this encounter (statuses as of 09/11/2022) [facility]01-17-2021 History of Past illness Narrative* Problem Noted Date Resolved Date Aspiration pneumonia 05/30/2020 09/22/2020 Post-operative state 05/24/2020 06/14/2020 Shortness of breath 05/03/2020 06/14/2020 Chest pain 05/03/2020 06/14/2020 documented as of this encounter (statuses as of 09/22/2022) [address]17-2021 History of Past illness Narrative* Problem Noted Date Resolved Date Aspiration pneumonia 05/30/2020 09/22/2020 Post-operative state 05/24/2020 06/14/2020 Shortness of breath 05/03/2020 06/14/2020 Chest pain 05/03/2020 06/14/2020 documented as of this encounter (statuses as of 10/12/2022) [facility]01-17-2021 History of Past illness Narrative* Problem Noted Date Resolved Date Aspiration pneumonia 05/30/2020 09/22/2020 Post-operative state 05/24/2020 06/14/2020 Shortness of breath 05/03/2020 06/14/2020 Chest pain 05/03/2020 06/14/2020 documented as of this encounter (statuses as of 10/14/2022) [facility]01-17-2021 History of Past illness Narrative* Problem Noted Date Resolved Date Aspiration pneumonia 05/30/2020 09/22/2020 Post-operative state 05/24/2020 06/14/2020 Shortness of breath 05/03/2020 06/14/2020 Chest pain 05/03/2020 06/14/2020 documented as of this encounter (statuses as of 10/15/2022) [facility]01-17-2021 History of Past illness Narrative* Problem Noted Date Resolved Date Aspiration pneumonia 05/30/2020 09/22/2020 Post-operative state 05/24/2020 06/14/2020 Shortness of breath 05/03/2020 06/14/2020 Chest pain 05/03/2020 06/14/2020 documented as of this encounter (statuses as of 10/30/2022) [facility]-17-2021 History of Past illness Narrative* Problem Noted Date Diagnosed Date Resolved Date Aspiration pneumonia 05/30/2020 021 Post-operative state 05/24/2020 021 Shortness of breath 05/03/2020 06/14/19 21 Chest pain 05/03/2020 06/14/2020 documented as of this encounter (statuses as of 12/19/2022) [facility]01-17-2021 History of Past illness Narrative* Problem Noted Date Diagnosed Date Resolved Date Aspiration pneumonia 05/30/2020 021 Post-operative state 05/24/2020 021 Shortness of breath 05/03/2020 06/14/19 21 Chest pain 05/03/2020 06/14/2020 documented as of this encounter (statuses as of 01/10/2023) [address]17-2021 History of Past illness Narrative* Problem Noted Date Diagnosed Date Resolved Date Aspiration pneumonia 05/30/2020 021 Post-operative state 05/24/2020 021 Shortness of breath 05/03/2020 06/14/19 21 Chest pain 05/03/2020 06/14/2020 documented as of this encounter (statuses as of 01/10/2023) [facility]01-17-2021 History of Past illness Narrative* Problem Noted Date Diagnosed Date Resolved Date Aspiration pneumonia 05/30/2020 021 Post-operative state 05/24/2020 021 Shortness of breath 05/03/2020 06/14/19 21 Chest pain 05/03/2020 06/14/2020 documented as of this encounter (statuses as of 01/12/2023) [facility]01-17-2021 History of Past illness Narrative* Problem Noted Date Diagnosed Date Resolved Date Aspiration pneumonia 05/30/2020 021 Post-operative state 05/24/2020 021 Shortness of breath 05/03/2020 06/14/19 21 Chest pain 05/03/2020 06/14/2020 documented as of this encounter (statuses as of 02/21/2023) [facility]01[facility]17-2021 History of Past illness Narrative* Problem Noted Date Diagnosed Date Resolved Date Aspiration pneumonia 05/30/2020 021 Post-operative state 05/24/2020 021 Shortness of breath 05/03/2020 06/14/19 21 Chest pain 05/03/2020 06/14/2020 documented as of this encounter (statuses as of 03/18/2023) [facility]01[facility]17-2021 History of Past illness Narrative* Problem Noted Date Diagnosed Date Resolved Date Aspiration pneumonia 05/30/2020 021 Post-operative state 05/24/2020 021 Shortness of breath 05/03/2020 06/14/19 21 Chest pain 05/03/2020 06/14/2020 documented as of this encounter (statuses as of 03/18/2023) [facility]01[facility]17-2021 History of Past illness Narrative* Problem Noted Date Diagnosed Date Resolved Date Aspiration pneumonia 05/30/2020 021 Post-operative state 05/24/2020 021 Shortness of breath 05/03/2020 06/14/19 21 Chest pain 05/03/2020 06/14/2020 documented as of this encounter (statuses as of 03/18/2023) [facility]01[facility]17-2021 History of Past illness Narrative* Problem Noted Date Diagnosed Date Resolved Date Aspiration pneumonia 05/30/2020 021 Post-operative state 05/24/2020 021 Shortness of breath 05/03/2020 06/14/19 21 Chest pain 05/03/2020 06/14/2020 documented as of this encounter (statuses as of 03/18/2023) [facility]01[facility]17-2021 History of Past illness Narrative* Problem Noted Date Diagnosed Date Resolved Date Aspiration pneumonia 05/30/2020 021 Post-operative state 05/24/2020 021 Shortness of breath 05/03/2020 06/14/19 21 Chest pain 05/03/2020 06/14/2020 documented as of this encounter (statuses as of 03/20/2023) [facility]01[facility]17-2021 History of Past illness Narrative* Problem Noted Date Diagnosed Date Resolved Date Aspiration pneumonia 05/30/2020 021 Post-operative state 05/24/2020 021 Shortness of breath 05/03/2020 06/14/19 21 Chest pain 05/03/2020 06/14/2020 documented as of this encounter (statuses as of 04/10/2023) [facility]01[facility]17-2021 History of Past illness Narrative* Problem Noted Date Diagnosed Date Resolved Date Aspiration pneumonia 05/30/2020 021 Post-operative state 05/24/2020 021 Shortness of breath 05/03/2020 06/14/19 21 Chest pain 05/03/2020 06/14/2020 documented as of this encounter (statuses as of 04/25/2023) [facility]01[facility]17-2021 History of Past illness Narrative* Problem Noted Date Diagnosed Date Resolved Date Aspiration pneumonia 05/30/2020 021 Post-operative state 05/24/2020 021 Shortness of breath 05/03/2020 06/14/19 21 Chest pain 05/03/2020 06/14/2020 documented as of this encounter (statuses as of 04/27/2023) [facility]01[facility]17-2021 History of Past illness Narrative* Problem Noted Date Diagnosed Date Resolved Date Aspiration pneumonia 05/30/2020 021 Post-operative state 05/24/2020 021 Shortness of breath 05/03/2020 06/14/19 21 Chest pain 05/03/2020 06/14/2020 documented as of this encounter (statuses as of 07/13/2023) [facility]01[facility]17-2021 History of Past illness Narrative* Problem Noted Date Diagnosed Date Resolved Date Aspiration pneumonia 05/30/2020 021 Post-operative state 05/24/2020 021 Shortness of breath 05/03/2020 06/14/19 21 Chest pain 05/03/2020 06/14/2020 documented as of this encounter (statuses as of 07/20/2023) [facility]01[facility]17-2021 History of Past illness Narrative* Problem Noted Date Diagnosed Date Resolved Date Aspiration pneumonia 05/30/2020 021 Post-operative state 05/24/2020 021 Shortness of breath 05/03/2020 06/14/19 21 Chest pain 05/03/2020 06/14/2020 documented as of this encounter (statuses as of 07/25/2023) [facility]17-2021 History of Past illness Narrative* Problem Noted Date Diagnosed Date Resolved Date Aspiration pneumonia 05/30/2020 021 Post-operative state 05/24/2020 021 Shortness of breath 05/03/2020 06/14/19 21 Chest pain 05/03/2020 06/14/2020 documented as of this encounter (statuses as of 07/25/2023) [address]17-2021 History of Past illness Narrative* Problem Noted Date Diagnosed Date Resolved Date Aspiration pneumonia 05/30/2020 021 Post-operative state 05/24/2020 021 Shortness of breath 05/03/2020 06/14/19 21 Chest pain 05/03/2020 06/14/2020 documented as of this encounter (statuses as of 07/26/2023) [address]17-2021 History of Past illness Narrative* Problem Noted Date Diagnosed Date Resolved Date Aspiration pneumonia 05/30/2020 021 Post-operative state 05/24/2020 021 Shortness of breath 05/03/2020 06/14/19 21 Chest pain 05/03/2020 06/14/2020 documented as of this encounter (statuses as of 07/28/2023) [facility]17-2021 History of Past illness Narrative* Problem Noted Date Diagnosed Date Resolved Date Aspiration pneumonia 05/30/2020 021 Post-operative state 05/24/2020 021 Shortness of breath 05/03/2020 06/14/19 21 Chest pain 05/03/2020 06/14/2020 documented as of this encounter (statuses as of 08/06/2023) [facility]01[facility]17-2021 History of Past illness Narrative* Problem Noted Date Diagnosed Date Resolved Date Aspiration pneumonia 05/30/2020 021 Post-operative state 05/24/2020 021 Shortness of breath 05/03/2020 06/14/19 21 Chest pain 05/03/2020 06/14/2020 documented as of this encounter (statuses as of 08/07/2023) [facility]01[facility]17-2021 History of Past illness Narrative* Problem Noted Date Diagnosed Date Resolved Date Aspiration pneumonia 05/30/2020 021 Post-operative state 05/24/2020 021 Shortness of breath 05/03/2020 06/14/19 21 Chest pain 05/03/2020 06/14/2020 documented as of this encounter (statuses as of 08/08/2023) [address]17-2021 History of Past illness Narrative* Problem Noted Date Diagnosed Date Resolved Date Aspiration pneumonia 05/30/2020 021 Post-operative state 05/24/2020 021 Shortness of breath 05/03/2020 06/14/19 21 Chest pain 05/03/2020 06/14/2020 documented as of this encounter (statuses as of 08/23/2023) [facility]17-2021 History of Past illness Narrative* Problem Noted Date Diagnosed Date Resolved Date Aspiration pneumonia 05/30/2020 021 Post-operative state 05/24/2020 021 Shortness of breath 05/03/2020 06/14/19 21 Chest pain 05/03/2020 06/14/2020 documented as of this encounter (statuses as of 08/24/2023) [facility]01[facility]17-2021 History of Past illness Narrative* Problem Noted Date Diagnosed Date Resolved Date Aspiration pneumonia 05/30/2020 021 Post-operative state 05/24/2020 021 Shortness of breath 05/03/2020 06/14/19 21 Chest pain 05/03/2020 06/14/2020 documented as of this encounter (statuses as of 08/28/2023) [facility] History of Present illness Narrative* [facility] [...] STATUS: Discontinued PROCEDURE TYPE: NM Stress: 13.0mCi [id number] was administered IV for Rest [facility] at 1307 by [facility]. 35.8 mCi [id number] was administered IV for Stress Imaging at [...] 1:10 PM PAGER/CONTACT #: [facility] Diagnosis Left shoulder pain, unspecified chronicity Lateral epicondylitis of left elbow Lateral epicondylitis of elbow [facility] Diagnosis Encounter for screening mammogram for breast cancer [facility] Diagnosis Chronic left shoulder pain- Primary [...] blood chemistry, unspecified documented in this encounter [facility] note* Diagnosis Hypothyroidism, unspecified type- Primary documented in this encounter [facility] note* Diagnosis Rib pain- Primary Chest pain, unspecified Somatic dysfunction of head region Somatic dysfunction of spine, cervical Nonallopathic lesion of cervical region, not elsewhere classified Somatic dysfunction of rib Somatic dysfunction of spine, thoracic Nonallopathic lesion of thoracic region, not elsewhere classified Neck pain Cervicalgia documented in this encounter [facility] note* Diagnosis Diverticulitis- Primary Diverticulitis of colon (without mention of hemorrhage) RLQ abdominal pain Abdominal pain, right lower quadrant Lower abdominal pain Abdominal pain, other specified site documented in this encounter [facility] note* Diagnosis Diverticulitis Diverticulitis of colon (without mention of hemorrhage) RLQ abdominal pain Abdominal pain, right lower quadrant Lower abdominal pain Abdominal pain, other specified site Stable angina (HCC) Other and unspecified angina pectoris Cardiomyopathy, unspecified type (HCC) Dyspnea on exertion Other dyspnea and respiratory abnormality documented in this encounter [facility] note* Diagnosis Generalized abdominal pain- Primary [...] and respiratory abnormality documented in this encounter [facility] note* Diagnosis Chronic systolic CHF (congestive heart failure) (HCC)- Primary Chronic systolic heart failure documented in this encounter [facility] note* Diagnosis Abdominal bloating Flatulence, eructation, and gas pain Belching Flatulence, eructation, and gas pain Abdominal pain, unspecified abdominal location documented in this encounter [facility] note* Diagnosis Diverticulosis- Primary Diverticulosis of colon (without mention of hemorrhage) History of Clostridium difficile colitis Personal history of other diseases of digestive system Abdominal bloating Flatulence, eructation, and gas pain documented in this encounter [facility] note* Diagnosis Hypothyroidism, unspecified type documented in this encounter [facility] note* Diagnosis Abdominal bloating- Primary Flatulence, eructation, and gas pain Belching Flatulence, eructation, and gas pain Abdominal pain, unspecified abdominal location [facility] Routine physical examination- Primary Routine general medical examination at a health care facility Primary hypertension Unspecified essential hypertension Mixed hyperlipidemia Coronary artery disease involving [place] coronary artery of [place] heart with other form of angina pectoris (HCC) Vitamin D deficiency Unspecified vitamin D deficiency Hypothyroidism, unspecified type [facility] Diagnosis Cardiomegaly- Primary Primary hypertension Unspecified essential hypertension Chronic diastolic congestive heart failure (HCC) Chronic diastolic heart failure Palpitations Acute on chronic systolic CHF (congestive heart failure) (HCC) Acute on chronic systolic heart failure [facility] Diagnosis Rib pain on right side- Primary Chest pain, unspecified Somatic dysfunction of spine, cervical Nonallopathic lesion of cervical region, not elsewhere classified Somatic dysfunction of rib Somatic dysfunction of spine, thoracic Nonallopathic lesion of thoracic region, not elsewhere classified [facility] Diagnosis Chronic right-sided thoracic back pain- Primary Somatic dysfunction of spine, cervical Nonallopathic lesion of cervical region, not elsewhere classified Somatic dysfunction of spine, thoracic Nonallopathic lesion of thoracic region, not elsewhere classified Somatic dysfunction of rib Rib pain on right side Chest pain, unspecified [facility] Diagnosis Hypothyroidism, unspecified type- Primary [...] screening for osteoporosis [facility] Diagnosis Hypothyroidism, unspecified type [facility] Diagnosis Chronic bilateral thoracic back [...] Palpitations Mixed hyperlipidemia [facility] Diagnosis Dysuria- Primary Urticaria Urticaria, [...] Palpitations Mixed hyperlipidemia [facility] Diagnosis Primary hypertension- Primary Unspecified essential hypertension Palpitations Mixed hyperlipidemia [facility] Diagnosis Chronic neck pain- Primary Cervicalgia Abdominal distension (gaseous) Flatulence, eructation, and gas pain Nausea Nausea alone RUQ abdominal pain Abdominal pain, right upper quadrant Somatic dysfunction of spine, cervical Nonallopathic lesion of cervical region, not elsewhere classified Somatic dysfunction of rib Somatic dysfunction of head region [facility] Diagnosis Chronic bilateral thoracic back pain- Primary Somatic dysfunction of spine, cervical Nonallopathic lesion of cervical region, not elsewhere classified Somatic dysfunction of rib Somatic dysfunction of head region Chronic neck pain Cervicalgia Somatic dysfunction of spine, thoracic Nonallopathic lesion of thoracic region, not elsewhere classified [facility] Diagnosis Acute cough- Primary Sore throat Acute pharyngitis [facility] Diagnosis Primary hypertension Unspecified essential hypertension documented [facility] encounter [facility] [facility]* Diagnosis Hypothyroidism, unspecified type- Primary Somatic dysfunction of spine, cervical Nonallopathic lesion of cervical region, not elsewhere classified Somatic dysfunction of rib Somatic dysfunction of head region Chronic bilateral thoracic back pain Chronic neck pain Cervicalgia Neck fullness Swelling, mass, or lump in head and neck documented in this encounter [facility]* Diagnosis Hypothyroidism, unspecified type documented [facility] this [facility]* Diagnosis Screening for osteoporosis Special screening for osteoporosis Asymptomatic menopause documented in this [facility]* Diagnosis SOB (shortness of breath) Shortness of breath documented [facility] this [facility]* Diagnosis Abnormal electrocardiogram Nonspecific abnormal electrocardiogram (ECG) (EKG) LBBB (left bundle branch block) Other left bundle branch block documented [facility] this encounter [facility]* Diagnosis Abdominal distension (gaseous) Flatulence, eructation, and gas pain Nausea Nausea alone RUQ abdominal pain Abdominal pain, right upper quadrant documented [facility] this [facility]* Diagnosis Primary hypertension Unspecified essential hypertension Chronic diastolic congestive heart failure (HCC) Chronic diastolic heart failure [facility] Diagnosis Chronic diastolic congestive heart failure [...] Primary hypercoagulable state documented in this encounter [facility]* Diagnosis LBBB (left bundle branch block)- Primary Other left bundle branch block Presence of cardiac resynchronization therapy defibrillator (AUTOMATION TECH-D) Acute on chronic systolic CHF (congestive heart failure) (HCC) Acute on chronic systolic heart failure documented [facility]* Diagnosis Vagina, candidiasis- Primary Candidiasis of vulva and vagina Burning with urination Dysuria 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 Acute cough Laryngopharyngeal reflux (LPR) Other diseases of larynx documented [facility] this [facility] Diagnosis Chronic systolic congestive heart failure (HCC)- Primary Chronic systolic heart failure Nonischemic cardiomyopathy (HCC) Other primary cardiomyopathies Mixed hyperlipidemia LBBB (left bundle branch block) Other left bundle branch block Presence of cardiac resynchronization therapy defibrillator (AUTOMATION TECH-D) Primary hypertension Unspecified essential hypertension Coronary artery disease involving [place] coronary artery of [place] heart without angina pectoris Valvular heart disease Endocarditis, valve unspecified, unspecified cause [facility] this encounter [facility] noteNo assessment information availableWKindred [facility] Work Phone: Evaluation note* Diagnosis Foot pain, left- Primary Pain in limb Localized swelling of left foot Foot pain, left Pain in limb Localized swelling of left foot documented in this encounter [facility]* Diagnosis Repetitive stress injury- Primary Unspecified site of sprain and strain Venous insufficiency Unspecified venous (peripheral) insufficiency documented [facility] this [facility] Diagnosis Repetitive stress injury Unspecified site of sprain and strain documented in this encounter [facility]* Diagnosis Acute on chronic systolic [...] of left foot [facility] Diagnosis Hypothyroidism, acquired- Primary Unspecified [...] Diagnosis Presence of cardiac resynchronization therapy defibrillator (AUTOMATION TECH-D)- Primary Non-ischemic cardiomyopathy (HCC) Other primary cardiomyopathies [...] not elsewhere classified [facility] Diagnosis Pre-op evaluation- Primary [...] not elsewhere classified [facility]* Diagnosis Pre-op evaluation- Primary Preoperative examination, [...] of left foot [facility]* Diagnosis Pre-op evaluation- Primary Preoperative examination, [...] Chronic cough Cough documented in this encounter [facility] note* Diagnosis Pre-op evaluation- Primary Preoperative [...] of head region [facility]* Diagnosis Pre-op evaluation- Primary Preoperative examination, [...] Other primary cardiomyopathies documented in this encounter [facility] note* Diagnosis Pre-op evaluation- Primary Preoperative [...] joint, upper arm documented in this encounter [facility] note* Diagnosis Pre-op evaluation- Primary Preoperative [...] of head region [facility]* Diagnosis Pre-op evaluation- Primary Preoperative examination, [...] 30-34.9 Obesity, unspecified [facility]* Diagnosis Great toe pain, left Pre-op [...] 30-34.9 Obesity, unspecified [facility]* Diagnosis Pre-op evaluation- Primary Preoperative examination, [...] bundle branch block Coronary artery disease involving [place] coronary artery of [place] heart without angina pectoris documented [facility]* Diagnosis Pre-op evaluation- Primary Preoperative examination, [...] not elsewhere classified documented [facility] Diagnosis Pre-op evaluation- Primary Preoperative [...] not elsewhere classified documented in this [facility]* Diagnosis Pre-op evaluation- Primary Preoperative examination, [...] of head region documented in this [facility]* Diagnosis Pre-op evaluation- Primary Preoperative examination, [...] not elsewhere classified documented [facility] this [facility]* Diagnosis Pre-op evaluation- Primary Preoperative examination, [...] Other primary cardiomyopathies [facility]* Diagnosis Pre-op evaluation- Primary Preoperative examination, [...] unspecified Acute cough [facility]* Diagnosis Pre-op evaluation- Primary Preoperative examination, [...] vitamin D deficiency documented [facility]* Diagnosis Pre-op evaluation- Primary Preoperative examination, [...] not elsewhere classified documented [facility] Diagnosis Pre-op evaluation- Primary Preoperative [...] of cardiac pacemaker documented in this encounter [facility] note* Diagnosis Pre-op evaluation- Primary Preoperative [...] of cardiac pacemaker [facility]* Diagnosis Pre-op evaluation- Primary Preoperative examination, [...] 30-34.9 Obesity, unspecified Cardiac resynchronization therapy defibrillator (AUTOMATION TECH-D) in place- Primary documented in this encounter [facility] note* Diagnosis Pre-op evaluation- Primary Preoperative [...] 30-34.9 Obesity, unspecified Cardiac resynchronization therapy defibrillator (AUTOMATION TECH-D) in place- Primary Chronic HFrEF (heart failure with reduced ejection fraction) (HCC) Medication management Encounter for long-term (current) use of other medications documented in this encounter [facility] note* Diagnosis Pre-op evaluation- Primary Preoperative [...] Other primary cardiomyopathies Coronary artery disease involving [place] coronary artery of [place] heart without angina pectoris Left bundle branch block Other left bundle branch block Cardiac resynchronization therapy defibrillator (AUTOMATION TECH-D) in place documented in this encounter [facility] Discharge instructionsAdditional Instructions Use incentive spirometer [...] of any fluid is an option for this.[facility] Work Phone: Reason for referral (narrative)* Diagnostic Procedure Only (Routine) - Closed Specialty Diagnoses / Procedures Referred By Crissy kelley Referred To Contact [facility] Diagnoses Encounter for screening mammogram for breast cancer Procedures KARTHIK SCREENING SCREENING MAMMOGRAPHY BI 2-VIEW BREAST INC CAD Maycol Valladares MD [address] [place] [address] [facility] [address] [place] [address] Referral ID Status Reason Start Date Expiration Date V isits Requested Visits Authorized [id number] Closed Auto-Generate d Referral 07/01/2021 07/31/2022 1 1 [facility] for referral (narrative)* Diagnostic Procedure Only (Routine) - Closed Specialty Diagnoses / Procedures Referred By Crissy kelley Referred To Contact [facility] Diagnoses Chronic left shoulder pain Left elbow pain Procedures XR SHOULDER LIMITED 2V AP/TRUE AP LEFT RADEX SHOULDER COMPLETE MINIMUM 2 VIEWS Alejandrina Harvey APRN.STRATEGIC BUYER [address] [place] [address] [facility] Referral ID Status Reason Start Date Expiration Date V isits Requested Visits Authorized [id number] Closed Auto-Generate d Referral 09/01/2021 10/01/2022 1 1 * Diagnostic Procedure Only (Routine) - Closed Specialty Diagnoses / Procedures Referred By Contac t Referred To Contact [facility] Diagnoses Chronic left shoulder pain Left elbow pain Procedures XR ELBOW GENERAL 2V AP/LAT LEFT RADEX ELBOW 2 VIEWS Alejandrina Harvey APRN.CNP [address] [place] [address] [facility] Referral ID Status Reason Start Date Expiration Date V isits Requested Visits Authorized [id number] Closed Auto-Generate d Referral 09/01/2021 10/01/2022 1 1 [facility] for referral (narrative)* Outpatient Procedure (Routine) - Closed Specialty Diagnoses / Procedures Referred By Contac t Referred To Contact [facility] Diagnoses Abdominal bloating Belching Abdominal pain, unspecified abdominal location Procedures EGD DIAGNOSTIC ESOPHAGOGASTRODUODENOSC OPY TRANSORAL DIAGNOSTIC Sincere Perkins PA-C [address] [place] [address] [facility] [address] [place] [address] Referral ID Status Reason Start Date Expiration Date V isits Requested Visits Authorized [id number] Closed Auto-Generate d Referral 11/02/2021 11/02/2022 1 1 * Outpatient Procedure (Routine) - Closed Specialty Diagnoses / Procedures Referred By Contac t Referred To Contact [facility] Diagnoses Abdominal bloating Belching Abdominal pain, unspecified abdominal location Procedures COLONOSCOPY DIAGNOSTIC COLONOSCOPY FLX DX W/COLLJ SPEC WHEN PFRMD Sincere Perkins PA-C [address] [place] [address] [facility] [address] [place] [address] Referral ID Status Reason Start Date Expiration Date V isits Requested Visits Authorized [id number] Closed Auto-Generate d Referral 11/02/2021 11/02/2022 1 1 [facility] for referral (narrative)* Outpatient Procedure (Routine) - Closed Specialty Diagnoses / Procedures Referred By Contac t Referred To Contact [facility] [place] Diagnoses Abdominal bloating Belching Abdominal pain, unspecified abdominal location Procedures EGD DIAGNOSTIC ESOPHAGOGASTRODUODENOSC OPY TRANSORAL DIAGNOSTIC Sincere Perkins PA-C [address] [place] [address] [address] Referral ID Status Reason Start Date Expiration Date V isits Requested Visits Authorized [id number] Closed Auto-Generate d Referral 11/02/2021 11/02/2022 1 1 * Outpatient Procedure (Routine) - Closed Specialty Diagnoses / Procedures Referred By Contac t Referred To Contact [facility] Diagnoses Abdominal bloating Belching Abdominal pain, unspecified abdominal location Procedures COLONOSCOPY DIAGNOSTIC COLONOSCOPY FLX DX W/COLLJ SPEC WHEN PFRMD Sincere Perkins PA-C [address] [place] [address] [address] Referral ID Status Reason Start Date Expiration Date V isits Requested Visits Authorized [id number] Closed Auto-Generate d Referral 11/02/2021 11/02/2022 1 1 [facility] for referral (narrative)* Outpatient Procedure (Routine) - Authorized Specialty Diagnoses / Procedures Referred By Contac t Referred [facility] Diagnoses Cardiomegaly Procedures ECHO ECHO TTHRC R-T 2D W/WOM-MODE COMPL SPEC&COLR D Santo Oneill MD [address] [place] [address] [facility] [address] [place] [address] Referral ID Status Reason Start Date Expiration Date Visits Requested Visits Authorized [id number] Authorized Auto-Generat ed Referral 02/13/2023 1 1 [facility] for referral (narrative)* Outpatient Procedure (Routine) - Closed Specialty Diagnoses / Procedures Referred By Contac t Referred To Contact [facility] [place] Diagnoses Primary hypertension Palpitations Mixed hyperlipidemia Procedures ECG COMPLETE ECG ROUTINE ECG W/LEAST 12 LDS W/I&R Santo Oneill MD [address] [place] [address] [facility] [address] [place] [address] Referral ID Status Reason Start Date Expiration Date V isits Requested Visits Authorized [id number] Closed Auto-Generate d Referral 08/03/2022 08/03/2023 1 1 [facility] for referral (narrative)* Outpatient Procedure (Routine) - Pending Review Specialty Diagnoses / Procedures Referred By Contac t Referred To Contact [facility] [place] [facility] Diagnoses LBBB (left bundle branch block) Presence of cardiac resynchronization therapy defibrillator (AUTOMATION TECH-D) Acute on chronic systolic CHF (congestive heart failure) (HCC) Procedures ECG COMPLETE ECG ROUTINE ECG W/LEAST 12 LDS W/I&[place] [address] [place] [address] [address] Referral ID Status Reason Start Date Expiration Date Visits Requested Visits Authorized [id number] Pending Review Auto-Generat ed Referral 08/07/2023 08/06/2024 1 1 [facility] for referral (narrative)* Diagnostic Procedure Only (Urgent) - Closed Specialty Diagnoses / Procedures Referred By Contac t Referred To Contact [facility] Diagnoses Foot pain, left Localized swelling of left foot Procedures XR FOOT GENERAL 3V AP/LAT/OBL LEFT RADEX FOOT COMPLETE MINIMUM 3 VIEWS Alejandrina Harvey APRN.CNP [address] [place] [address] [place] [address] Referral ID Status Reason Start Date Expiration Date V isits Requested Visits Authorized [id number] Closed Auto-Generate d Referral 09/13/2023 10/12/2024 1 1 [facility] for referral (narrative)* Diagnostic Procedure Only (Routine) - Closed Specialty Diagnoses / Procedures Referred By Contac t Referred To Contact [facility] Diagnoses Repetitive stress injury Procedures XR FOOT GENERAL 3V AP/LAT/OBL LEFT RADEX FOOT COMPLETE MINIMUM 3 VIEWS Oliverio Mata [address] [place] [address] [place] [address] Referral ID Status Reason Start Date Expiration Date V isits Requested Visits Authorized [id number] Closed Auto-Generate d Referral 09/24/2023 10/23/2024 1 1 [facility] for referral (narrative)* Outpatient Procedure (Routine) - Pending Review Specialty Diagnoses / Procedures Referred By Contac t Referred [facility] Diagnoses Presence of cardiac resynchronization therapy defibrillator (AUTOMATION TECH-D) Non-ischemic cardiomyopathy (HCC) LBBB (left bundle branch block) Procedures ECG COMPLETE ECG ROUTINE ECG W/LEAST 12 LDS W/I&R Mercedes Vera APRN.STRATEGIC BUYER [address] [place] [address] [facility] [address] [facility] [place] [id number] Referral ID Status Reason Start Date Expiration Date Visits Requested Visits Authorized [id number] Pending Review Auto-Generat ed Referral 11/01/2023 10/31/2024 1 1 [facility] for referral (narrative)* Diagnostic Procedure Only (Routine) - Pending Review Specialty Diagnoses / Procedures Referred By Contac t Referred To Contact X[facility] IMAG[facility] Diagnoses Acute midline low back pain without sciatica Procedures XR LUMBAR GENERAL 3V AP/LAT/L5-S1 RADEX SPINE LUMBOSACRAL 2/3 VIEWS Mandeep Houser DO [address] [place] [address] [place] [address] Referral ID Status Reason Start Date Expiration Date Visits Requested Visits Authorized [id number] Pending Review Auto-Generat ed Referral 11/07/2023 12/06/2024 1 1 * Physical Therapy (Routine) - Authorized Specialty Diagnoses / Procedures Referred By Contac t Referred To Contact [facility] Diagnoses Acute midline low back pain without sciatica Procedures CONSULT TO PHYSICAL THERAPY PHYSICAL THERAPY EVALUATION HIGH COMPLEX 45 MINS Mandeep Houser DO [address] [place] [address] [facility] [address] [address] Referral ID Status Reason Start Date Expiration Date Visits Requested Visits Authorized [id number] Authorized PCP Requested Referral Auto-Generate d Referral 11/07/2023 11/06/2024 99 [phone] [facility] for referral (narrative)* Outpatient Procedure (Routine) - Closed Specialty Diagnoses / Procedures Referred By Contac t Referred [facility] Diagnoses Chronic systolic congestive heart failure (HCC) Procedures ECHO ECHO TTHRC R-T 2D W/WOM-MODE COMPL SPEC&[place] [address] [place] [address] [facility] [address] [address] Referral ID Status Reason Start Date Expiration Date V isits Requested Visits Authorized [id number] Closed Auto-Generate d Referral 11/07/2023 08/06/2024 1 1 [facility] for referral (narrative)* Diagnostic Procedure Only (Urgent) - Closed Specialty Diagnoses / Procedures Referred By Contac t Referred To Contact [facility] IMAG[facility] Diagnoses Foot pain, left Localized swelling of left foot Procedures XR FOOT GENERAL 3V AP/LAT/OBL LEFT RADEX FOOT COMPLETE MINIMUM 3 VIEWS Alejandrina Harvey APRN.STRATEGIC BUYER [address] [place] [address] [place] [address] Referral ID Status Reason Start Date Expiration Date V isits Requested Visits Authorized [id number] Closed Auto-Generate d Referral 09/13/2023 10/12/2024 1 1 [facility] for referral (narrative)* Outpatient Procedure (Routine) - New Request Specialty Diagnoses / Procedures Referred By Contac t Referred To Contact [facility] [place] Diagnoses Nonischemic cardiomyopathy (HCC) Procedures ECHO ECHO TTHRC R-T 2D W/WOM-MODE COMPL SPEC&COLR Angel Benites DO [address] [place] [address] [facility] [address] [address] Referral ID Status Reason Start Date Expiration Date Visits Requested Visits Authorized [id number] New Request Auto-Generat ed Referral 08/06/2024 02/06/2025 1 1 [facility] for referral (narrative)* Diagnostic Procedure Only (Routine) - Closed Specialty Diagnoses / Procedures Referred By Contac t Referred To Contact [facility] Diagnoses Chronic left shoulder pain Left elbow pain Procedures XR SHOULDER LIMITED 2V AP/TRUE AP LEFT RADEX SHOULDER COMPLETE MINIMUM 2 VIEWS Alejandrina Harvey APRN.STRATEGIC BUYER [address] [place] [address] [place] [address] Referral ID Status Reason Start Date Expiration Date V isits Requested Visits Authorized [id number] Closed Auto-Generate d Referral 09/01/2021 10/01/2022 1 1 * Diagnostic Procedure Only (Routine) - Closed Specialty Diagnoses / Procedures Referred By Contac t Referred To Contact [facility] Diagnoses Chronic left shoulder pain Left elbow pain Procedures XR ELBOW GENERAL 2V AP/LAT LEFT RADEX ELBOW 2 VIEWS Alejandrina Harvey APRN.STRATEGIC BUYER [address] [place] [address] [place] [address] Referral ID Status Reason Start Date Expiration Date V isits Requested Visits Authorized [id number] Closed Auto-Generate d Referral 09/01/2021 10/01/2022 1 1 [facility] for referral (narrative)* Diagnostic Procedure Only (Routine) - Closed Specialty Diagnoses / Procedures Referred By Contac t Referred To Contact [facility] Diagnoses Chronic pain of right ankle Procedures XR ANKLE GENERAL 3V AP/LAT/OBL RT X-RAY ANKLE MINIMUM 3 VIEWS Maycol Valladares MD [address] [place] [address] [place] [address] Referral ID Status Reason Start Date Expiration Date V isits Requested Visits Authorized [id number] Closed Auto-Generate d Referral 12/29/2020 01/28/2022 1 1 [facility] for referral (narrative)No reason for referral information availableWKindred Hospital [facility] Work Phone: Reason for visit Narrative* Diagnostic Procedure Only (Routine) - Closed Specialty Diagnoses / Procedures Referred By Crissy t Referred To Contact [facility] Diagnoses Encounter for screening mammogram for breast cancer Procedures KARTHIK SCREENING SCREENING MAMMOGRAPHY BI 2-VIEW BREAST INC CAD Valladares, Tereso, MD [address] [place] [address] [facility] [address] [place] [id number] Referral ID Status Reason Start Date Expiration Date V isits Requested Visits Authorized [id number] Closed Auto-Generate d Referral 07/01/2021 07/31/2022 1 1 [facility] for visit Narrative* Outpatient Procedure (Routine) - Closed Specialty Diagnoses / Procedures Referred By Gageac t Referred To Contact [facility] Diagnoses Abdominal bloating Belching Abdominal pain, unspecified abdominal location Procedures EGD DIAGNOSTIC ESOPHAGOGASTRODUODENOSC OPY TRANSORAL DIAGNOSTIC Sincere Perkins PA-C [address] [place] [address] [facility] [address] [address] Referral ID Status Reason Start Date Expiration Date V isits Requested Visits Authorized [id number] Closed Auto-Generate d Referral 11/02/2021 11/02/2022 1 1 [facility] for visit Narrative* Diagnostic Procedure Only (Routine) - Closed Specialty Diagnoses / Procedures Referred By Crissy t Referred To Contact [facility] IMAG[facility] Diagnoses Repetitive stress injury Procedures XR FOOT GENERAL 3V AP/LAT/OBL LEFT RADEX FOOT COMPLETE MINIMUM 3 VIEWS Oliverio Mata [address] [place] [address] [place] [address] Referral ID Status Reason Start Date Expiration Date V isits Requested Visits Authorized [id number] Closed Auto-Generate d Referral 09/24/2023 10/23/2024 1 1 [facility] for visit Narrative* Outpatient Procedure (Routine) - Closed Specialty Diagnoses / Procedures Referred By Contac t Referred To [facility] Diagnoses Chronic systolic congestive heart failure (HCC) Procedures ECHO ECHO TTHRC R-T 2D W/WOM-MODE COMPL SPEC&[place] [address] [place] [address] [facility] [address] [place] [address] Referral ID Status Reason Start Date Expiration Date V isits Requested Visits Authorized [id number] Closed Auto-Generate d Referral 11/07/2023 08/06/2024 1 1 [facility] for visit Narrative* Diagnostic Procedure Only (Urgent) - Closed Specialty Diagnoses / Procedures Referred By Contac t Referred To Contact [facility]R IMAG[facility] Diagnoses Foot pain, left Localized swelling of left foot Procedures XR FOOT GENERAL 3V AP/LAT/OBL LEFT RADEX FOOT COMPLETE MINIMUM 3 VIEWS Alejandrina Harvey, BUSINESS STRATEGY MANAGER.STRATEGIC BUYER [address] [place] [address] [place] [address] Referral ID Status Reason Start Date Expiration Date V isits Requested Visits Authorized [id number] Closed Auto-Generate d Referral 09/13/2023 10/12/2024 1 1 [facility] for visit Narrative* Diagnostic Procedure Only (Routine) - Closed Specialty Diagnoses / Procedures Referred By Contac t Referred To Contact XR IMAGING Diagnoses Chronic left shoulder pain Left elbow pain Procedures XR SHOULDER LIMITED 2V AP/TRUE AP LEFT RADEX SHOULDER COMPLETE MINIMUM 2 VIEWS Alejandrina Harvey, BUSINESS STRATEGY MANAGER.STRATEGIC BUYER [address] [place] [address] [place] [address] Referral ID Status Reason Start Date Expiration Date V isits Requested Visits Authorized [id number] Closed Auto-Generate d Referral 09/01/2021 10/01/2022 1 1 [facility] for visit Narrative* Diagnostic Procedure Only (Routine) - Closed Specialty Diagnoses / Procedures Referred By Contac t Referred To Contact XR IMAGING Diagnoses Chronic pain of right ankle Procedures XR ANKLE GENERAL 3V AP/LAT/OBL RT X-RAY ANKLE MINIMUM 3 VIEWS Maycol Valladares MD [address] [place] [address] [place] [address] Referral ID Status Reason Start Date Expiration Date V isits Requested Visits Authorized [id number] Closed Auto-Generate d Referral 12/29/2020 01/28/2022 [address] [facility] Summary Purpose Family History Grandmother Name [...] Documents on File Type Date Recorded Patient Automation Technician Expl anation Advance Directive(s) 03/18/2021 2:56 PM Advance Directive(s) 09/28/2020 8:38 PM Advance Directive(s) 09/07/2020 9:42 AM Advance Directive(s) 09/03/2020 2:04 PM Advance Directive(s) 05/30/2020 10:25 AM Advance Directive(s) 05/24/2020 10:03 AM Advance Directive(s) 05/03/2020 9:25 AM Advance Directive(s) 03/09/2020 8:13 AM Advance Directive(s) 03/09/2020 12:44 PM Documents on File Type Date Recorded Patient Automation Technician Expl anation Advance Directive(s) 03/18/2021 2:56 PM Advance Directive(s) 09/28/2020 8:38 PM Advance Directive(s) 09/07/2020 9:42 AM Advance Directive(s) 09/03/2020 2:04 PM Advance Directive(s) 05/30/2020 10:25 AM Advance Directive(s) 05/24/2020 10:03 AM Advance Directive(s) 05/03/2020 9:25 AM Advance Directive(s) 03/09/2020 8:13 AM Advance Directive(s) 03/09/2020 12:44 PM Documents on File Type Date Recorded Patient Automation Technician Expl anation Advance Directive(s) 11/21/2021 10:55 AM Advance Directive(s) 03/18/2021 2:56 PM Advance Directive(s) 09/28/2020 8:38 PM Advance Directive(s) 09/07/2020 9:42 AM Advance Directive(s) 09/03/2020 2:04 PM Advance Directive(s) 05/30/2020 10:25 AM Advance Directive(s) 05/24/2020 10:03 AM Advance Directive(s) 05/03/2020 9:25 AM Advance Directive(s) 03/09/2020 8:13 AM Advance Directive(s) 03/09/2020 12:44 PM Documents on File Type Date Recorded Patient Automation Technician Expl anation Advance Directive(s) 12/05/2021 8:38 AM [...] Documents on File Type Date Recorded Patient Automation Technician Expl anation Advance Directive(s) 12/05/2021 8:38 AM [...] Yes August 29, 2023 3:01pm Power of Feller Machine Operator Yes August 28 3:01pm Advance Directives on [...] Do you have a Healthcare Power of Feller Machine Operator? Yes November 13, 2024 5:58pm Reason for Referral Specialty Diagnoses / Procedures Referred By Contac t Referred To Contact CT IMAGING Diagnoses Diverticulitis RLQ abdominal pain Lower abdominal pain Procedures CT ABD/PEL W IVCON CT ABD & PELVIS W/CONTRAST Alejandrina Harvey APRN.STRATEGIC BUYER [address] [place] [address] Ct Imaging Referral ID Status Reason Start Date Expiration Date Visits Requested Visits Authorized [id number] Authorized Auto-Generat ed Referral 10/19/2021 11/18/2022 1 1 Referral ID Status Reason Start Date Expiration Date V isits Requested Visits Authorized [id number] Closed Auto-Generate d Referral 10/19/2021 11/18/2022 1 1 Specialty Diagnoses / Procedures Referred By Contac t Referred To Contact CT IMAGING Diagnoses Abdominal distension (gaseous) Nausea RUQ abdominal pain Procedures CT ABD/PEL W IVCON CT ABD & PELVIS W/CONTRAST Mandeep Houser, DO [address] [place] [address] Ct Imaging Referral ID Status Reason Start Date Expiration Date Visits Requested Visits Authorized [id number] Authorized Auto-Generat ed Referral 08/22/2022 09/21/2023 1 1 Specialty Diagnoses / Procedures Referred By Contac t Referred To Contact CT IMAGING Diagnoses Abdominal distension (gaseous) Nausea RUQ abdominal pain Procedures CT ABD/PEL W IVCON CT ABD & PELVIS W/CONTRAST Mandeep Houser L, DO [address] [place] [address] Ct [facility] [place] [address] Referral ID Status Reason Start Date Expiration Date V isits Requested Visits Authorized [id number] Closed Auto-Generate d Referral 08/22/2022 09/21/2023 1 1 Specialty Diagnoses / Procedures Referred By Contac t Referred To Contact Diagnoses Acute on chronic systolic CHF (congestive heart failure) (HCC) Procedures CONSULT TO ELECTROPHYSIOLOGY OFFICE/OUTPATIENT NEW HIGH MDM 60-74 MINUTES Santo Oneill MD [address] [place] [address] Angel Gaxiola MD [address] [id number] Referral ID Status Reason Start Date Expiration Date Visits Requested Visits Authorized [id number] Authorized PCP Requested Referral 04/16/2023 07/08/2023 1 1 Specialty Diagnoses / Procedures Referred By Contac t Referred [facility] Diagnoses Primary hypertension Procedures ECG COMPLETE ECG ROUTINE ECG W/LEAST 12 LDS W/I&R Santo Oneill MD [address] [place] [address] [facility] [address] [place] [address] Referral ID Status Reason Start Date Expiration Date Visits Requested Visits Authorized [id number] Pending Review Auto-Generat ed Referral 3 04/08/2024 1 1 Specialty Diagnoses / Procedures Referred By Contac t Referred To Contact CT IMAGING Diagnoses Word finding difficulty New onset of headaches after age [address] BRAIN WO IVCON CT HEAD/BRAIN W/O CONTRAST MATERIAL Mandeep Houser L, DO [address] [place] [address] [place] [address] Referral ID Status Reason Start Date Expiration Date Visits Requested Visits Authorized [id number] Authorized Auto-Generat ed Referral 10/31/2023 11/29/2024 1 1 Referral ID Status Reason Start Date Expiration Date V isits Requested Visits Authorized [id number] Closed Auto-Generate d Referral 10/31/2023 11/29/2024 1 1 Medications Administered Section Inactive Administered Medications - up to 3 most recent administrations Medication Order MAR Action Action Date Dose Rate Site benzocaine 20% 1 [place] (TOPEX) 1 [place], TOPICAL, ONCE, 1 dose, On Sun12/05/21 at 1030, 1 spray to the back of the throat prior to EGD - Pharmaceutical Waste: Aerosol -, Preprocedure Given 12/05/2021 9:50 AM EDT 1 [place] lactated ringers iv infusion 30 mL/hr, INTRAVENOUS, [...] section and content) DATE CREATED AUTHOR 02/21/2018 [facility] DATE CREATED AUTHOR AUTHOR'S ORGANIZ ATION 01/28/2019 [facility] DATE CREATED AUTHOR AUTHOR'S ORGANIZ ATION 02/09/2020 [facility] DATE CREATED AUTHOR AUTHOR'S ORGANIZ ATION 04/30/2020 [facility] DATE CREATED AUTHOR AUTHOR'S ORGANIZ ATION 01/11/2021 [facility] DATE CREATED AUTHOR AUTHOR'S ORGANIZ ATION 08/24/2023 [facility] DATE CREATED AUTHOR AUTHOR'S ORGANIZ ATION 11/03/2023 [facility] DATE CREATED AUTHOR AUTHOR'S ORGANIZ ATION 11/19/2023 [facility] DATE CREATED AUTHOR AUTHOR'S ORGANIZ ATION 04/26/2024 [facility] DATE CREATED AUTHOR AUTHOR'S ORGANIZ ATION 11/09/2024 [facility] Source Comments (unrecognize d section and content) In the event this informatio n is protected by the Federal Confidentiality of Alcohol and Drug Abuse Patient Records regulations: The Federal rules restrict any use of the information to criminally investigate or prosecute any alcohol or drug abuse patient.[facility] the event this information is protected by the Federal Confidentiality of Alcohol and Drug Abuse Patient Records regulations: The Federal rules restrict any use of the information to criminally investigate or prosecute any alcohol or drug abuse patient.[facility] HospitalIn the event this information is protected by the Federal Confidentiality of Alcohol and Drug Abuse Patient Records regulations: The Federal rules restrict any use of the information to criminally investigate or prosecute any alcohol or drug abuse patient.[facility] HospitalIn the event this information is protected by the Federal Confidentiality of Alcohol and Drug Abuse Patient Records regulations: The Federal rules restrict any use of the information to criminally investigate or prosecute any alcohol or drug abuse patient.[facility] HospitalIn the event this information is protected by the Federal Confidentiality of Alcohol and Drug Abuse Patient Records regulations: The Federal rules restrict any use of the information to criminally investigate or prosecute any alcohol or drug abuse patient.[facility] HospitalIn the event this information is protected by the Federal Confidentiality of Alcohol and Drug Abuse Patient Records regulations: The Federal rules restrict any use of the information to criminally investigate or prosecute any alcohol or drug abuse patient.[facility] HospitalIn the event this information is protected by the Federal Confidentiality of Alcohol and Drug Abuse Patient Records regulations: The Federal rules restrict any use of the information to criminally investigate or prosecute any alcohol or drug abuse patient.[facility] HospitalIn the event this information is protected by the Federal Confidentiality of Alcohol and Drug Abuse Patient Records regulations: The Federal rules restrict any use of the information to criminally investigate or prosecute any alcohol or drug abuse patient.[facility] HospitalIn the event this information is protected by the Federal Confidentiality of Alcohol and Drug Abuse Patient Records regulations: The Federal rules restrict any use of the information to criminally investigate or prosecute any alcohol or drug abuse patient.[facility] HospitalIn the event this information is protected by the Federal Confidentiality of Alcohol and Drug Abuse Patient Records regulations: The Federal rules restrict any use of the information to criminally investigate or prosecute any alcohol or drug abuse patient.[facility] HospitalIn the event this information is protected by the Federal Confidentiality of Alcohol and Drug Abuse Patient Records regulations: The Federal rules restrict any use of the information to criminally investigate or prosecute any alcohol or drug abuse patient.[facility] HospitalIn the event this information is protected by the Federal Confidentiality of Alcohol and Drug Abuse Patient Records regulations: The Federal rules restrict any use of the information to criminally investigate or prosecute any alcohol or drug abuse patient.[facility] HospitalIn the event this information is protected by the Federal Confidentiality of Alcohol and Drug Abuse Patient Records regulations: The Federal rules restrict any use of the information to criminally investigate or prosecute any alcohol or drug abuse patient.[facility] HospitalIn the event this information is protected by the Federal Confidentiality of Alcohol and Drug Abuse Patient Records regulations: The Federal rules restrict any use of the information to criminally investigate or prosecute any alcohol or drug abuse patient.[facility] HospitalIn the event this information is protected by the Federal Confidentiality of Alcohol and Drug Abuse Patient Records regulations: The Federal rules restrict any use of the information to criminally investigate or prosecute any alcohol or drug abuse patient.[facility] HospitalIn the event this information is protected by the Federal Confidentiality of Alcohol and Drug Abuse Patient Records regulations: The Federal rules restrict any use of the information to criminally investigate or prosecute any alcohol or drug abuse patient.[facility] HospitalIn the event this information is protected by the Federal Confidentiality of Alcohol and Drug Abuse Patient Records regulations: The Federal rules restrict any use of the information to criminally investigate or prosecute any alcohol or drug abuse patient.[facility] HospitalIn the event this information is protected by the Federal Confidentiality of Alcohol and Drug Abuse Patient Records regulations: The Federal rules restrict any use of the information to criminally investigate or prosecute any alcohol or drug abuse patient.[facility] HospitalIn the event this information is protected by the Federal Confidentiality of Alcohol and Drug Abuse Patient Records regulations: The Federal rules restrict any use of the information to criminally investigate or prosecute any alcohol or drug abuse patient.[facility] HospitalIn the event this information is protected by the Federal Confidentiality of Alcohol and Drug Abuse Patient Records regulations: The Federal rules restrict any use of the information to criminally investigate or prosecute any alcohol or drug abuse patient.[facility] HospitalIn the event this information is protected by the Federal Confidentiality of Alcohol and Drug Abuse Patient Records regulations: The Federal rules restrict any use of the information to criminally investigate or prosecute any alcohol or drug abuse patient.[facility] HospitalIn the event this information is protected by the Federal Confidentiality of Alcohol and Drug Abuse Patient Records regulations: The Federal rules restrict any use of the information to criminally investigate or prosecute any alcohol or drug abuse patient.[facility] HospitalIn the event this information is protected by the Federal Confidentiality of Alcohol and Drug Abuse Patient Records regulations: The Federal rules restrict any use of the information to criminally investigate or prosecute any alcohol or drug abuse patient.[facility] HospitalIn the event this information is protected by the Federal Confidentiality of Alcohol and Drug Abuse Patient Records regulations: The Federal rules restrict any use of the information to criminally investigate or prosecute any alcohol or drug abuse patient.[facility] HospitalIn the event this information is protected by the Federal Confidentiality of Alcohol and Drug Abuse Patient Records regulations: The Federal rules restrict any use of the information to criminally investigate or prosecute any alcohol or drug abuse patient.[facility] HospitalIn the event this information is protected by the Federal Confidentiality of Alcohol and Drug Abuse Patient Records regulations: The Federal rules restrict any use of the information to criminally investigate or prosecute any alcohol or drug abuse patient.[facility] HospitalIn the event this information is protected by the Federal Confidentiality of Alcohol and Drug Abuse Patient Records regulations: The Federal rules restrict any use of the information to criminally investigate or prosecute any alcohol or drug abuse patient.[facility] HospitalIn the event this information is protected by the Federal Confidentiality of Alcohol and Drug Abuse Patient Records regulations: The Federal rules restrict any use of the information to criminally investigate or prosecute any alcohol or drug abuse patient.[facility] HospitalIn the event this information is protected by the Federal Confidentiality of Alcohol and Drug Abuse Patient Records regulations: The Federal rules restrict any use of the information to criminally investigate or prosecute any alcohol or drug abuse patient.[facility] HospitalIn the event this information is protected by the Federal Confidentiality of Alcohol and Drug Abuse Patient Records regulations: The Federal rules restrict any use of the information to criminally investigate or prosecute any alcohol or drug abuse patient.[facility] HospitalIn the event this information is protected by the Federal Confidentiality of Alcohol and Drug Abuse Patient Records regulations: The Federal rules restrict any use of the information to criminally investigate or prosecute any alcohol or drug abuse patient.[facility] HospitalIn the event this information is protected by the Federal Confidentiality of Alcohol and Drug Abuse Patient Records regulations: The Federal rules restrict any use of the information to criminally investigate or prosecute any alcohol or drug abuse patient.[facility] HospitalIn the event this information is protected by the Federal Confidentiality of Alcohol and Drug Abuse Patient Records regulations: The Federal rules restrict any use of the information to criminally investigate or prosecute any alcohol or drug abuse patient.[facility] HospitalIn the event this information is protected by the Federal Confidentiality of Alcohol and Drug Abuse Patient Records regulations: The Federal rules restrict any use of the information to criminally investigate or prosecute any alcohol or drug abuse patient.[facility] HospitalIn the event this information is protected by the Federal Confidentiality of Alcohol and Drug Abuse Patient Records regulations: The Federal rules restrict any use of the information to criminally investigate or prosecute any alcohol or drug abuse patient.[facility] HospitalIn the event this information is protected by the Federal Confidentiality of Alcohol and Drug Abuse Patient Records regulations: The Federal rules restrict any use of the information to criminally investigate or prosecute any alcohol or drug abuse patient.[facility] HospitalIn the event this information is protected by the Federal Confidentiality of Alcohol and Drug Abuse Patient Records regulations: The Federal rules restrict any use of the information to criminally investigate or prosecute any alcohol or drug abuse patient.[facility] HospitalIn the event this information is protected by the Federal Confidentiality of Alcohol and Drug Abuse Patient Records regulations: The Federal rules restrict any use of the information to criminally investigate or prosecute any alcohol or drug abuse patient.[facility] HospitalIn the event this information is protected by the Federal Confidentiality of Alcohol and Drug Abuse Patient Records regulations: The Federal rules restrict any use of the information to criminally investigate or prosecute any alcohol or drug abuse patient.[facility] HospitalIn the event this information is protected by the Federal Confidentiality of Alcohol and Drug Abuse Patient Records regulations: The Federal rules restrict any use of the information to criminally investigate or prosecute any alcohol or drug abuse patient.[facility] HospitalIn the event this information is protected by the Federal Confidentiality of Alcohol and Drug Abuse Patient Records regulations: The Federal rules restrict any use of the information to criminally investigate or prosecute any alcohol or drug abuse patient.[facility] HospitalIn the event this information is protected by the Federal Confidentiality of Alcohol and Drug Abuse Patient Records regulations: The Federal rules restrict any use of the information to criminally investigate or prosecute any alcohol or drug abuse patient.[facility] HospitalIn the event this information is protected by the Federal Confidentiality of Alcohol and Drug Abuse Patient Records regulations: The Federal rules restrict any use of the information to criminally investigate or prosecute any alcohol or drug abuse patient.[facility] HospitalIn the event this information is protected by the Federal Confidentiality of Alcohol and Drug Abuse Patient Records regulations: The Federal rules restrict any use of the information to criminally investigate or prosecute any alcohol or drug abuse patient.[facility] HospitalIn the event this information is protected by the Federal Confidentiality of Alcohol and Drug Abuse Patient Records regulations: The Federal rules restrict any use of the information to criminally investigate or prosecute any alcohol or drug abuse patient.[facility] HospitalIn the event this information is protected by the Federal Confidentiality of Alcohol and Drug Abuse Patient Records regulations: The Federal rules restrict any use of the information to criminally investigate or prosecute any alcohol or drug abuse patient.[facility] HospitalIn the event this information is protected by the Federal Confidentiality of Alcohol and Drug Abuse Patient Records regulations: The Federal rules restrict any use of the information to criminally investigate or prosecute any alcohol or drug abuse patient.[facility] HospitalIn the event this information is protected by the Federal Confidentiality of Alcohol and Drug Abuse Patient Records regulations: The Federal rules restrict any use of the information to criminally investigate or prosecute any alcohol or drug abuse patient.[facility] HospitalIn the event this information is protected by the Federal Confidentiality of Alcohol and Drug Abuse Patient Records regulations: The Federal rules restrict any use of the information to criminally investigate or prosecute any alcohol or drug abuse patient.[facility] HospitalIn the event this information is protected by the Federal Confidentiality of Alcohol and Drug Abuse Patient Records regulations: The Federal rules restrict any use of the information to criminally investigate or prosecute any alcohol or drug abuse patient.[facility] HospitalIn the event this information is protected by the Federal Confidentiality of Alcohol and Drug Abuse Patient Records regulations: The Federal rules restrict any use of the information to criminally investigate or prosecute any alcohol or drug abuse patient.[facility] HospitalIn the event this information is protected by the Federal Confidentiality of Alcohol and Drug Abuse Patient Records regulations: The Federal rules restrict any use of the information to criminally investigate or prosecute any alcohol or drug abuse patient.[facility] HospitalIn the event this information is protected by the Federal Confidentiality of Alcohol and Drug Abuse Patient Records regulations: The Federal rules restrict any use of the information to criminally investigate or prosecute any alcohol or drug abuse patient.[facility] HospitalIn the event this information is protected by the Federal Confidentiality of Alcohol and Drug Abuse Patient Records regulations: The Federal rules restrict any use of the information to criminally investigate or prosecute any alcohol or drug abuse patient.[facility] HospitalIn the event this information is protected by the Federal Confidentiality of Alcohol and Drug Abuse Patient Records regulations: The Federal rules restrict any use of the information to criminally investigate or prosecute any alcohol or drug abuse patient.[facility] HospitalIn the event this information is protected by the Federal Confidentiality of Alcohol and Drug Abuse Patient Records regulations: The Federal rules restrict any use of the information to criminally investigate or prosecute any alcohol or drug abuse patient.[facility] HospitalIn the event this information is protected by the Federal Confidentiality of Alcohol and Drug Abuse Patient Records regulations: The Federal rules restrict any use of the information to criminally investigate or prosecute any alcohol or drug abuse patient.[facility] HospitalIn the event this information is protected by the Federal Confidentiality of Alcohol and Drug Abuse Patient Records regulations: The Federal rules restrict any use of the information to criminally investigate or prosecute any alcohol or drug abuse patient.[facility] HospitalIn the event this information is protected by the Federal Confidentiality of Alcohol and Drug Abuse Patient Records regulations: The Federal rules restrict any use of the information to criminally investigate or prosecute any alcohol or drug abuse patient.[facility] HospitalIn the event this information is protected by the Federal Confidentiality of Alcohol and Drug Abuse Patient Records regulations: The Federal rules restrict any use of the information to criminally investigate or prosecute any alcohol or drug abuse patient.[facility] HospitalIn the event this information is protected by the Federal Confidentiality of Alcohol and Drug Abuse Patient Records regulations: The Federal rules restrict any use of the information to criminally investigate or prosecute any alcohol or drug abuse patient.[facility] HospitalIn the event this information is protected by the Federal Confidentiality of Alcohol and Drug Abuse Patient Records regulations: The Federal rules restrict any use of the information to criminally investigate or prosecute any alcohol or drug abuse patient.[facility] HospitalIn the event this information is protected by the Federal Confidentiality of Alcohol and Drug Abuse Patient Records regulations: The Federal rules restrict any use of the information to criminally investigate or prosecute any alcohol or drug abuse patient.[facility] HospitalIn the event this information is protected by the Federal Confidentiality of Alcohol and Drug Abuse Patient Records regulations: The Federal rules restrict any use of the information to criminally investigate or prosecute any alcohol or drug abuse patient.[facility] HospitalIn the event this information is protected by the Federal Confidentiality of Alcohol and Drug Abuse Patient Records regulations: The Federal rules restrict any use of the information to criminally investigate or prosecute any alcohol or drug abuse patient.[facility] HospitalIn the event this information is protected by the Federal Confidentiality of Alcohol and Drug Abuse Patient Records regulations: The Federal rules restrict any use of the information to criminally investigate or prosecute any alcohol or drug abuse patient.[facility] HospitalIn the event this information is protected by the Federal Confidentiality of Alcohol and Drug Abuse Patient Records regulations: The Federal rules restrict any use of the information to criminally investigate or prosecute any alcohol or drug abuse patient.[facility] HospitalIn the event this information is protected by the Federal Confidentiality of Alcohol and Drug Abuse Patient Records regulations: The Federal rules restrict any use of the information to criminally investigate or prosecute any alcohol or drug abuse patient.[facility] HospitalIn the event this information is protected by the Federal Confidentiality of Alcohol and Drug Abuse Patient Records regulations: The Federal rules restrict any use of the information to criminally investigate or prosecute any alcohol or drug abuse patient.[facility] HospitalIn the event this information is protected by the Federal Confidentiality of Alcohol and Drug Abuse Patient Records regulations: The Federal rules restrict any use of the information to criminally investigate or prosecute any alcohol or drug abuse patient.[facility] HospitalIn the event this information is protected by the Federal Confidentiality of Alcohol and Drug Abuse Patient Records regulations: The Federal rules restrict any use of the information to criminally investigate or prosecute any alcohol or drug abuse patient.[facility] HospitalIn the event this information is protected by the Federal Confidentiality of Alcohol and Drug Abuse Patient Records regulations: The Federal rules restrict any use of the information to criminally investigate or prosecute any alcohol or drug abuse patient.[facility] HospitalIn the event this information is protected by the Federal Confidentiality of Alcohol and Drug Abuse Patient Records regulations: The Federal rules restrict any use of the information to criminally investigate or prosecute any alcohol or drug abuse patient.[facility] HospitalIn the event this information is protected by the Federal Confidentiality of Alcohol and Drug Abuse Patient Records regulations: The Federal rules restrict any use of the information to criminally investigate or prosecute any alcohol or drug abuse patient.[facility] HospitalIn the event this information is protected by the Federal Confidentiality of Alcohol and Drug Abuse Patient Records regulations: The Federal rules restrict any use of the information to criminally investigate or prosecute any alcohol or drug abuse patient.[facility] HospitalIn the event this information is protected by the Federal Confidentiality of Alcohol and Drug Abuse Patient Records regulations: The Federal rules restrict any use of the information to criminally investigate or prosecute any alcohol or drug abuse patient.[facility] HospitalIn the event this information is protected by the Federal Confidentiality of Alcohol and Drug Abuse Patient Records regulations: The Federal rules restrict any use of the information to criminally investigate or prosecute any alcohol or drug abuse patient.[facility] HospitalIn the event this information is protected by the Federal Confidentiality of Alcohol and Drug Abuse Patient Records regulations: The Federal rules restrict any use of the information to criminally investigate or prosecute any alcohol or drug abuse patient.[facility] HospitalIn the event this information is protected by the Federal Confidentiality of Alcohol and Drug Abuse Patient Records regulations: The Federal rules restrict any use of the information to criminally investigate or prosecute any alcohol or drug abuse patient.[facility] HospitalIn the event this information is protected by the Federal Confidentiality of Alcohol and Drug Abuse Patient Records regulations: The Federal rules restrict any use of the information to criminally investigate or prosecute any alcohol or drug abuse patient.[facility] HospitalIn the event this information is protected by the Federal Confidentiality of Alcohol and Drug Abuse Patient Records regulations: The Federal rules restrict any use of the information to criminally investigate or prosecute any alcohol or drug abuse patient.[facility] HospitalIn the event this information is protected by the Federal Confidentiality of Alcohol and Drug Abuse Patient Records regulations: The Federal rules restrict any use of the information to criminally investigate or prosecute any alcohol or drug abuse patient.[facility] HospitalIn the event this information is protected by the Federal Confidentiality of Alcohol and Drug Abuse Patient Records regulations: The Federal rules restrict any use of the information to criminally investigate or prosecute any alcohol or drug abuse patient.[facility] HospitalIn the event this information is protected by the Federal Confidentiality of Alcohol and Drug Abuse Patient Records regulations: The Federal rules restrict any use of the information to criminally investigate or prosecute any alcohol or drug abuse patient.[facility] HospitalIn the event this information is protected by the Federal Confidentiality of Alcohol and Drug Abuse Patient Records regulations: The Federal rules restrict any use of the information to criminally investigate or prosecute any alcohol or drug abuse patient.[facility] HospitalIn the event this information is protected by the Federal Confidentiality of Alcohol and Drug Abuse Patient Records regulations: The Federal rules restrict any use of the information to criminally investigate or prosecute any alcohol or drug abuse patient.[facility] HospitalIn the event this information is protected by the Federal Confidentiality of Alcohol and Drug Abuse Patient Records regulations: The Federal rules restrict any use of the information to criminally investigate or prosecute any alcohol or drug abuse patient.[facility] HospitalIn the event this information is protected by the Federal Confidentiality of Alcohol and Drug Abuse Patient Records regulations: The Federal rules restrict any use of the information to criminally investigate or prosecute any alcohol or drug abuse patient.[facility] HospitalIn the event this information is protected by the Federal Confidentiality of Alcohol and Drug Abuse Patient Records regulations: The Federal rules restrict any use of the information to criminally investigate or prosecute any alcohol or drug abuse patient.[facility] HospitalIn the event this information is protected by the Federal Confidentiality of Alcohol and Drug Abuse Patient Records regulations: The Federal rules restrict any use of the information to criminally investigate or prosecute any alcohol or drug abuse patient.[facility] HospitalIn the event this information is protected by the Federal Confidentiality of Alcohol and Drug Abuse Patient Records regulations: The Federal rules restrict any use of the information to criminally investigate or prosecute any alcohol or drug abuse patient.[facility] HospitalIn the event this information is protected by the Federal Confidentiality of Alcohol and Drug Abuse Patient Records regulations: The Federal rules restrict any use of the information to criminally investigate or prosecute any alcohol or drug abuse patient.[facility] HospitalIn the event this information is protected by the Federal Confidentiality of Alcohol and Drug Abuse Patient Records regulations: The Federal rules restrict any use of the information to criminally investigate or prosecute any alcohol or drug abuse patient.[facility] HospitalIn the event this information is protected by the Federal Confidentiality of Alcohol and Drug Abuse Patient Records regulations: The Federal rules restrict any use of the information to criminally investigate or prosecute any alcohol or drug abuse patient.[facility] HospitalIn the event this information is protected by the Federal Confidentiality of Alcohol and Drug Abuse Patient Records regulations: The Federal rules restrict any use of the information to criminally investigate or prosecute any alcohol or drug abuse patient.[facility] HospitalIn the event this information is protected by the Federal Confidentiality of Alcohol and Drug Abuse Patient Records regulations: The Federal rules restrict any use of the information to criminally investigate or prosecute any alcohol or drug abuse patient.[facility] HospitalIn the event this information is protected by the Federal Confidentiality of Alcohol and Drug Abuse Patient Records regulations: The Federal rules restrict any use of the information to criminally investigate or prosecute any alcohol or drug abuse patient.[facility] HospitalIn the event this information is protected by the Federal Confidentiality of Alcohol and Drug Abuse Patient Records regulations: The Federal rules restrict any use of the information to criminally investigate or prosecute any alcohol or drug abuse patient.[facility] HospitalIn the event this information is protected by the Federal Confidentiality of Alcohol and Drug Abuse Patient Records regulations: The Federal rules restrict any use of the information to criminally investigate or prosecute any alcohol or drug abuse patient.[facility] HospitalIn the event this information is protected by the Federal Confidentiality of Alcohol and Drug Abuse Patient Records regulations: The Federal rules restrict any use of the information to criminally investigate or prosecute any alcohol or drug abuse patient.[facility] HospitalIn the event this information is protected by the Federal Confidentiality of Alcohol and Drug Abuse Patient Records regulations: The Federal rules restrict any use of the information to criminally investigate or prosecute any alcohol or drug abuse patient.[facility] HospitalIn the event this information is protected by the Federal Confidentiality of Alcohol and Drug Abuse Patient Records regulations: The Federal rules restrict any use of the information to criminally investigate or prosecute any alcohol or drug abuse patient.[facility] HospitalIn the event this information is protected by the Federal Confidentiality of Alcohol and Drug Abuse Patient Records regulations: The Federal rules restrict any use of the information to criminally investigate or prosecute any alcohol or drug abuse patient.[facility] HospitalIn the event this information is protected by the Federal Confidentiality of Alcohol and Drug Abuse Patient Records regulations: The Federal rules restrict any use of the information to criminally investigate or prosecute any alcohol or drug abuse patient.[facility] HospitalIn the event this information is protected by the Federal Confidentiality of Alcohol and Drug Abuse Patient Records regulations: The Federal rules restrict any use of the information to criminally investigate or prosecute any alcohol or drug abuse patient.[facility] HospitalIn the event this information is protected by the Federal Confidentiality of Alcohol and Drug Abuse Patient Records regulations: The Federal rules restrict any use of the information to criminally investigate or prosecute any alcohol or drug abuse patient.[facility] HospitalIn the event this information is protected by the Federal Confidentiality of Alcohol and Drug Abuse Patient Records regulations: The Federal rules restrict any use of the information to criminally investigate or prosecute any alcohol or drug abuse patient.[facility] HospitalIn the event this information is protected by the Federal Confidentiality of Alcohol and Drug Abuse Patient Records regulations: The Federal rules restrict any use of the information to criminally investigate or prosecute any alcohol or drug abuse patient.[facility] HospitalIn the event this information is protected by the Federal Confidentiality of Alcohol and Drug Abuse Patient Records regulations: The Federal rules restrict any use of the information to criminally investigate or prosecute any alcohol or drug abuse patient.[facility] HospitalIn the event this information is protected by the Federal Confidentiality of Alcohol and Drug Abuse Patient Records regulations: The Federal rules restrict any use of the information to criminally investigate or prosecute any alcohol or drug abuse patient.[facility] HospitalIn the event this information is protected by the Federal Confidentiality of Alcohol and Drug Abuse Patient Records regulations: The Federal rules restrict any use of the information to criminally investigate or prosecute any alcohol or drug abuse patient.[facility] HospitalIn the event this information is protected by the Federal Confidentiality of Alcohol and Drug Abuse Patient Records regulations: The Federal rules restrict any use of the information to criminally investigate or prosecute any alcohol or drug abuse patient.[facility] HospitalIn the event this information is protected by the Federal Confidentiality of Alcohol and Drug Abuse Patient Records regulations: The Federal rules restrict any use of the information to criminally investigate or prosecute any alcohol or drug abuse patient.[facility] HospitalIn the event this information is protected by the Federal Confidentiality of Alcohol and Drug Abuse Patient Records regulations: The Federal rules restrict any use of the information to criminally investigate or prosecute any alcohol or drug abuse patient.[facility] HospitalIn the event this information is protected by the Federal Confidentiality of Alcohol and Drug Abuse Patient Records regulations: The Federal rules restrict any use of the information to criminally investigate or prosecute any alcohol or drug abuse patient.[facility] HospitalIn the event this information is protected by the Federal Confidentiality of Alcohol and Drug Abuse Patient Records regulations: The Federal rules restrict any use of the information to criminally investigate or prosecute any alcohol or drug abuse patient.[facility] HospitalIn the event this information is protected by the Federal Confidentiality of Alcohol and Drug Abuse Patient Records regulations: The Federal rules restrict any use of the information to criminally investigate or prosecute any alcohol or drug abuse patient.[facility] HospitalIn the event this information is protected by the Federal Confidentiality of Alcohol and Drug Abuse Patient Records regulations: The Federal rules restrict any use of the information to criminally investigate or prosecute any alcohol or drug abuse patient.[facility] HospitalIn the event this information is protected by the Federal Confidentiality of Alcohol and Drug Abuse Patient Records regulations: The Federal rules restrict any use of the information to criminally investigate or prosecute any alcohol or drug abuse patient.[facility] HospitalIn the event this information is protected by the Federal Confidentiality of Alcohol and Drug Abuse Patient Records regulations: The Federal rules restrict any use of the information to criminally investigate or prosecute any alcohol or drug abuse patient.[facility] HospitalIn the event this information is protected by the Federal Confidentiality of Alcohol and Drug Abuse Patient Records regulations: The Federal rules restrict any use of the information to criminally investigate or prosecute any alcohol or drug abuse patient.[facility] HospitalIn the event this information is protected by the Federal Confidentiality of Alcohol and Drug Abuse Patient Records regulations: The Federal rules restrict any use of the information to criminally investigate or prosecute any alcohol or drug abuse patient.[facility] HospitalIn the event this information is protected by the Federal Confidentiality of Alcohol and Drug Abuse Patient Records regulations: The Federal rules restrict any use of the information to criminally investigate or prosecute any alcohol or drug abuse patient.[facility] HospitalIn the event this information is protected by the Federal Confidentiality of Alcohol and Drug Abuse Patient Records regulations: The Federal rules restrict any use of the information to criminally investigate or prosecute any alcohol or drug abuse patient.[facility] HospitalIn the event this information is protected by the Federal Confidentiality of Alcohol and Drug Abuse Patient Records regulations: The Federal rules restrict any use of the information to criminally investigate or prosecute any alcohol or drug abuse patient.[facility] HospitalIn the event this information is protected by the Federal Confidentiality of Alcohol and Drug Abuse Patient Records regulations: The Federal rules restrict any use of the information to criminally investigate or prosecute any alcohol or drug abuse patient.[facility] HospitalIn the event this information is protected by the Federal Confidentiality of Alcohol and Drug Abuse Patient Records regulations: The Federal rules restrict any use of the information to criminally investigate or prosecute any alcohol or drug abuse patient.[facility] HospitalIn the event this information is protected by the Federal Confidentiality of Alcohol and Drug Abuse Patient Records regulations: The Federal rules restrict any use of the information to criminally investigate or prosecute any alcohol or drug abuse patient.[facility] HospitalIn the event this information is protected by the Federal Confidentiality of Alcohol and Drug Abuse Patient Records regulations: The Federal rules restrict any use of the information to criminally investigate or prosecute any alcohol or drug abuse patient.[facility] HospitalIn the event this information is protected by the Federal Confidentiality of Alcohol and Drug Abuse Patient Records regulations: The Federal rules restrict any use of the information to criminally investigate or prosecute any alcohol or drug abuse patient.[facility] HospitalIn the event this information is protected by the Federal Confidentiality of Alcohol and Drug Abuse Patient Records regulations: The Federal rules restrict any use of the information to criminally investigate or prosecute any alcohol or drug abuse patient.[facility] HospitalIn the event this information is protected by the Federal Confidentiality of Alcohol and Drug Abuse Patient Records regulations: The Federal rules restrict any use of the information to criminally investigate or prosecute any alcohol or drug abuse patient.[facility] HospitalIn the event this information is protected by the Federal Confidentiality of Alcohol and Drug Abuse Patient Records regulations: The Federal rules restrict any use of the information to criminally investigate or prosecute any alcohol or drug abuse patient.[facility] HospitalIn the event this information is protected by the Federal Confidentiality of Alcohol and Drug Abuse Patient Records regulations: The Federal rules restrict any use of the information to criminally investigate or prosecute any alcohol or drug abuse patient.[facility] HospitalIn the event this information is protected by the Federal Confidentiality of Alcohol and Drug Abuse Patient Records regulations: The Federal rules restrict any use of the information to criminally investigate or prosecute any alcohol or drug abuse patient.[facility] HospitalIn the event this information is protected by the Federal Confidentiality of Alcohol and Drug Abuse Patient Records regulations: The Federal rules restrict any use of the information to criminally investigate or prosecute any alcohol or drug abuse patient.[facility] Reason for Visit (unrecogniz ed section and content) Reason Comments PT Discharge Specialty Diagnoses / Procedures Referred By Contac t Referred To Contact [facility] Diagnoses Left shoulder pain, unspecified chronicity Lateral epicondylitis of left elbow Procedures CONSULT TO PHYSICAL THERAPY PHYSICAL THERAPY EVALUATION HIGH COMPLEX 45 MINS Maycol Valladares MD [address] [place] [address] [facility] [address] [place] [address] Referral ID Status Reason Start Date Expiration Date Visits Requested Visits Authorized [id number] Authorized PCP Requested Referral Auto-Generate d Referral [...] & PELVIS W/CONTRAST Alejandrina Harvey APRN.CNP [address] [place] [address] Ct Imaging Referral ID Status Reason Start Date Expiration Date V isits Requested Visits Authorized [id number] Closed Auto-Generate d Referral 10/19/2021 11/18/2022 1 [...] & PELVIS W/CONTRAST Mandeep Houser DO [address] [place] [address] [place] [address] Referral ID Status Reason Start Date Expiration Date V isits Requested Visits Authorized [id number] Closed Auto-Generate d Referral 08/22/2022 09/21/2023 1 [...] WO IVCON CT HEAD/BRAIN W/O CONTRAST MATERIAL Manedep Houser DO [address] [place] [address] [place] [address] Referral ID Status Reason Start Date Expiration Date V isits Requested Visits Authorized [id number] Closed Auto-Generate d Referral 10/31/2023 11/29/2024 1 1 Reason Comments Appointment OMT Reason Comments Results CT Brain Reason Comments Brand Coordinator - Other CHF Reason Comments Transition Of Care Reason Comments omt Reason Comments OMT Reason Comments CARD Follow Up 3 Month PMH: non-ischemic CM, HTN, Hypothyroidism, LBBB s/p AUTOMATION TECH-D Reason Comments Establish Care 5 mos follow [...] Care Teams (unrecognized sec tion and content) Central Sterile Technician Relationship Specialty Start Date End Date Maycol Valladares MD [address] [place] [address] PCP - General Internal Medicine 06/14/20 Galen Heaton MD [address] [place] [address] Primary Staff Physician Cardiology 07/30/18 Central Sterile Technician Relationship Specialty Start Date End Date Maycol Valladares MD [address] [place] [address] PCP - General Internal Medicine 06/14/20 Galen Heaton MD [address] [place] [address] Primary Staff Physician Cardiology 07/30/18 Central Sterile Technician Relationship Specialty Start Date End Date Maycol Valladares MD [address] [place] [address] PCP - General Internal Medicine 06/14/20 Galen Heaton MD [address] [place] [address] Primary Staff Physician Cardiology 07/30/18 Central Sterile Technician Relationship Specialty Start Date End Date Maycol Valladares MD [address] [place] [address] PCP - General Internal Medicine 06/14/20 Galen Heaton MD [address] [place] [address] Primary Staff Physician Cardiology 07/30/18 Central Sterile Technician Relationship Specialty Start Date End Date Mandeep Houser, DO [address] [facility] [place] [address] PCP - General Family Practice 09/01/21 Galen Heaton MD [address] [place] [address] Primary Staff Physician Cardiology 07/30/18 Central Sterile Technician Relationship Specialty Start Date End Date Mandeep Houser, DO [address] [facility] [place] [address] PCP - General Family Practice 09/01/21 Galen Heaton MD [address] [place] [address] Primary Staff Physician Cardiology 07/30/18 Central Sterile Technician Relationship Specialty Start Date End Date Mandepe Houser, DO [address] [facility] [place] [address] PCP - General Family Practice 09/01/21 Galen Heaton MD [address] [place] [address] Primary Staff Physician Cardiology 07/30/18 Central Sterile Technician Relationship Specialty Start Date End Date Mandeep Houser, DO [address] [facility] [place] [address] PCP - General Family Practice 09/01/21 Galen Heaton MD [address] [facility] [place] [address] Primary Staff Physician Cardiology 07/30/18 Central Sterile Technician Relationship Specialty Start Date End Date Maycol Valladares MD [address] [facility] [place] [address] PCP - General Internal Medicine 06/14/20 08/31/21 Mandeep Houser, DO [address] [facility] [place] [address] PCP - General Family Practice 09/01/21 Galen Heaton MD [address] [place] [address] Primary Staff Physician Cardiology 07/30/18 Central Sterile Technician Relationship Specialty Start Date End Date Mandeep Houser, DO [address] [facility] [place] [address] PCP - General Family Practice 09/01/21 Galen Heaton MD [address] [place] [address] Primary Staff Physician Cardiology 07/30/18 Central Sterile Technician Relationship Specialty Start Date End Date Mandeep Houser, DO [address] [facility] [place] [address] PCP - General Family Practice 09/01/21 Galen Heaton MD [address] [place] [address] Primary Staff Physician Cardiology 07/30/18 Central Sterile Technician Relationship Specialty Start Date End Date Mandeep Houser, DO [address] [facility] [place] [address] PCP - General Family Practice 09/01/21 Galen Heaton MD [address] [place] [address] Primary Staff Physician Cardiology 07/30/18 Central Sterile Technician Relationship Specialty Start Date End Date Mandeep Houser, DO [address] [facility] [place] [address] PCP - General Family Practice 09/01/21 Galen Heaton MD [address] [place] [address] Primary Staff Physician Cardiology 07/30/18 Central Sterile Technician Relationship Specialty Start Date End Date Mandeep Houser, DO [address] [facility] [place] [address] PCP - General Family Practice 09/01/21 Galen Heaton MD [address] [place] [address] Primary Staff Physician Cardiology 07/30/18 Central Sterile Technician Relationship Specialty Start Date End Date Mandeep Houser, DO [address] [facility] [address] PCP - General Family Practice 09/01/21 Galen Heaton MD [address] [place] [address] Primary Staff Physician Cardiology 07/30/18 Central Sterile Technician Relationship Specialty Start Date End Date Mandeep Houser, DO [address] [place] [address] PCP - General Family Practice 09/01/21 Galen Heaton MD [address] [place] [address] Primary Staff Physician Cardiology 07/30/18 Central Sterile Technician Relationship Specialty Start Date End Date Mandeep Houser, DO [address] [place] [address] PCP - General Family Practice 09/01/21 Galen Heaton MD [address] [place] [address] Primary Staff Physician Cardiology 07/30/18 Central Sterile Technician Relationship Specialty Start Date End Date Mandeep Houser, DO [address] [facility] [address] PCP - General Family Practice 09/01/21 Galen Heaton MD [address] [place] [address] Primary Staff Physician Cardiology 07/30/18 Central Sterile Technician Relationship Specialty Start Date End Date Mandeep Houser, DO [address] [facility] [address] PCP - General Family Practice 09/01/21 Galen Heaton MD [address] [place] [address] Primary Staff Physician Cardiology 07/30/18 Central Sterile Technician Relationship Specialty Start Date End Date Mandeep Houser, DO [address] [facility] [address] PCP - General Family Practice 09/01/21 Galen Heaton MD [address] [place] [address] Primary Staff Physician Cardiology 07/30/18 Central Sterile Technician Relationship Specialty Start Date End Date Mandeep Houser, DO [address] [facility] [address] PCP - General Family Practice 09/01/21 Galen Heaton MD [address] [place] [address] Primary Staff Physician Cardiology 07/30/18 Central Sterile Technician Relationship Specialty Start Date End Date Mandeep Houser, DO [address] [facility] [address] PCP - General Family Practice 09/01/21 Galen Heaton MD [address] [place] [address] Primary Staff Physician Cardiology 07/30/18 Central Sterile Technician Relationship Specialty Start Date End Date Mandeep Houser, DO [address] [facility] [address] PCP - General Family Medicine 09/01/21 Galen Heaton MD [address] [place] [address] Primary Staff Physician Cardiology 07/30/18 Central Sterile Technician Relationship Specialty Start Date End Date Mandeep Houser, DO [address] [facility] [place] [address] PCP - General Family Medicine 09/01/21 Galen Heaton MD [address] [place] [address] Primary Staff Physician Cardiology 07/30/18 Central Sterile Technician Relationship Specialty Start Date End Date Mandeep Houser, DO [address] [facility] [place] [address] PCP - General Family Medicine 09/01/21 Galen Heaton MD [address] [facility] [place] [place] [address] Primary Staff Physician Cardiology 07/30/18 Central Sterile Technician Relationship Specialty Start Date End Date Mandeep Houser, DO [address] [facility] [place] [address] PCP - General Family Medicine 09/01/21 Galen Heaton MD [address] [facility] [place] [address] Primary Staff Physician Cardiology 07/30/18 Central Sterile Technician Relationship Specialty Start Date End Date Mandeep Houser, DO [address] [facility] [address] PCP - General Family Medicine 09/01/21 Galen Heaton MD [address] [facility] [place] [address] Primary Staff Physician Cardiology 07/30/18 Central Sterile Technician Relationship Specialty Start Date End Date Mandeep Houser, DO [address] [facility] [place] [address] PCP - General Family Medicine 09/01/21 Galen Heaton MD [address] [place] [address] Primary Staff Physician Cardiology 07/30/18 Central Sterile Technician Relationship Specialty Start Date End Date Mandeep Houser, DO [address] [facility] [address] PCP - General Family Medicine 09/01/21 Galen Heaton MD [address] [place] [address] Primary Staff Physician Cardiology 07/30/18 Central Sterile Technician Relationship Specialty Start Date End Date Mandeep Houser, DO [address] [facility] [place] [address] PCP - General Family Medicine 09/01/21 Galen Heaton MD [address] [place] [address] Primary Staff Physician Cardiology 07/30/18 Central Sterile Technician Relationship Specialty Start Date End Date Mandeep Houser, DO [address] [facility] [address] PCP - General Family Medicine 09/01/21 Galen Heaton MD [address] [place] [address] Primary Staff Physician Cardiology 07/30/18 Central Sterile Technician Relationship Specialty Start Date End Date Mandeep Houser, DO [address] [facility] [address] PCP - General Family Medicine 09/01/21 Galen Heaton MD [address] [place] [address] Primary Staff Physician Cardiology 07/30/18 Central Sterile Technician Relationship Specialty Start Date End Date Mandeep Houser, DO [address] [facility] [address] PCP - General Family Medicine 09/01/21 Galen Heaton MD [address] [place] [address] Primary Staff Physician Cardiology 07/30/18 Central Sterile Technician Relationship Specialty Start Date End Date Mandeep Houser, DO [address] [facility] [address] PCP - General Family Medicine 09/01/21 Galen Heaton MD [address] [place] [address] Primary Staff Physician Cardiology 07/30/18 Central Sterile Technician Relationship Specialty Start Date End Date Mandeep Houser DO [address] [facility] [address] PCP - General Family Medicine 09/01/21 Galen Heaton MD [address] [place] [address] Primary Staff Physician Cardiology 07/30/18 Central Sterile Technician Relationship Specialty Start Date End Date Mandeep Houser DO [address] [place] [address] PCP - General Family Medicine 09/01/21 Galen Heaton MD [address] [place] [address] Primary Staff Physician Cardiology 07/30/18 Central Sterile Technician Relationship Specialty Start Date End Date Mandeep Houser DO [address] [place] [address] PCP - General Family Medicine 09/01/21 Galen Heaton MD [address] [place] [address] Primary Staff Physician Cardiology 07/30/18 Central Sterile Technician Relationship Specialty Start Date End Date Mandeep Houser DO [address] [place] [address] PCP - General Family Medicine 09/01/21 Galen Heaton MD [address] [place] [address] Primary Staff Physician Cardiology 07/30/18 Central Sterile Technician Relationship Specialty Start Date End Date Mandeep Houser DO [address] [place] [address] PCP - General Family Medicine 09/01/21 Galen Heaton MD [address] [place] [address] Primary Staff Physician Cardiology 07/30/18 Central Sterile Technician Relationship Specialty Start Date End Date Mandeep Houser DO [address] [place] [address] PCP - General Family Medicine 09/01/21 Galen Heaton MD [address] [place] [address] Primary Staff Physician Cardiology 07/30/18 Central Sterile Technician Relationship Specialty Start Date End Date Mandeep Houser DO [address] [place] [address] PCP - General Family Medicine 09/01/21 Galen Heaton MD [address] [place] [address] Primary Staff Physician Cardiology 07/30/18 Central Sterile Technician Relationship Specialty Start Date End Date Rafael Frank III [address] [phone] PCP - General Family Medicine 09/02/12 05/23/20 Galen Heaton MD [address] [place] [address] Primary Staff Physician Cardiology 07/30/18 Central Sterile Technician Relationship Specialty Start Date End Date Mandeep Houser DO [address] [place] [address] PCP - General Family Medicine 09/01/21 Galen Heaton MD [address] [place] [address] Primary Staff Physician Cardiology 07/30/18 Central Sterile Technician Relationship Specialty Start Date End Date Rafael Frank LISA [address] [phone] PCP - General Family Medicine 09/02/12 05/23/20 Galen Heaton MD [address] [place] [address] Primary Staff Physician Cardiology 07/30/18 Central Sterile Technician Relationship Specialty Start Date End Date Mandeep Houser DO [address] [place], [place] [address] PCP - General Family Medicine 09/01/21 Galen Heaton MD [address] [place] [address] Primary Staff Physician Cardiology 07/30/18 Central Sterile Technician Relationship Specialty Start Date End Date Mandeep Houser DO [address] [place] [address] PCP - General Family Medicine 09/01/21 Galen Heaton MD [address] [place], [place] [address] Primary Staff Physician Cardiology 07/30/18 Central Sterile Technician Relationship Specialty Start Date End Date Mandeep Houser DO [address] [place] [address] PCP - General Family Medicine 09/01/21 Galen Heaton MD [address] [place] [address] Primary Staff Physician Cardiology 07/30/18 Central Sterile Technician Relationship Specialty Start Date End Date Mandeep Houser DO [address] [place] [address] PCP - General Family Medicine 09/01/21 Galen Heaton MD [address] [place], [place] [address] [phone] Primary Staff Physician Cardiology 07/30/18 Central Sterile Technician Relationship Specialty Start Date End Date Mandeep Houser DO [address] [place] [address] PCP - General Family Medicine 09/01/21 Galen Heaton MD [address] [place] [address] Primary Staff Physician Cardiology 07/30/18 Central Sterile Technician Relationship Specialty Start Date End Date Mandeep Houser DO [address] [place] [address] PCP - General Family Medicine 09/01/21 Galen Heaton MD [address] [place] [address] Primary Staff Physician Cardiology 07/30/18 Central Sterile Technician Relationship Specialty Start Date End Date Mandeep Houser DO [address] [place] [address] PCP - General Family Medicine 09/01/21 Galen Heaton MD [address] [place] [address] Primary Staff Physician Cardiology 07/30/18 Central Sterile Technician Relationship Specialty Start Date End Date Mandeep Houser DO [address] [place] [address] PCP - General Family Medicine 09/01/21 Galen Heaton MD [address] [place] [address] Primary Staff Physician Cardiology 07/30/18 Fitz Mcqueen RN [address] [place] [address] Primary Care Masonry Inspector Internal Medicine 07/19/23 Central Sterile Technician Relationship Specialty Start Date End Date Mandeep Houser DO [address] [place] [address] PCP - General Family Medicine 09/01/21 Galen Heaton MD [address] [place] [address] Primary Staff Physician Cardiology 07/30/18 Fitz Mcqueen RN [address] [facility] [place] [address] Primary Care Masonry Inspector Internal Medicine 07/19/23 Central Sterile Technician Relationship Specialty Start Date End Date Mandeep Houser DO [address] [place] [address] PCP - General Family Medicine 09/01/21 Galen Heaton MD [address] [facility] [place] [address] Primary Staff Physician Cardiology 07/30/18 Fitz Mcqueen RN [address] [place] [address] Primary Care Masonry Inspector Internal Medicine 07/19/23 Central Sterile Technician Relationship Specialty Start Date End Date Mandeep Houser DO [address] [place] [address] PCP - General Family Medicine 09/01/21 Galen Heaton MD [address] [facility] [place] [address] Primary Staff Physician Cardiology 07/30/18 Fitz Mcqueen RN [address] [place] [address] Primary Care Masonry Inspector Internal Medicine 07/19/23 Central Sterile Technician Relationship Specialty Start Date End Date Mandeep Houser DO [address] [place] [address] PCP - General Family Medicine 09/01/21 Galen Heaton MD [address] [facility] [place] [place] [address] Primary Staff Physician Cardiology 07/30/18 Fitz Mcqueen RN [address] [place] [address] Primary Care Masonry Inspector Internal Medicine 07/19/23 Central Sterile Technician Relationship Specialty Start Date End Date Mandeep Houser DO [address] [place] [address] PCP - General Family Medicine 09/01/21 Galen Heaton MD [address] [place] [address] Primary Staff Physician Cardiology 07/30/18 Central Sterile Technician Relationship Specialty Start Date End Date Mandeep Houser DO [address] [place] [address] PCP - General Family Medicine 09/01/21 Galen Heaton MD [address] [facility] [place] [place] [address] Primary Staff Physician Cardiology 07/30/18 Central Sterile Technician Relationship Specialty Start Date End Date Mandeep Houser DO [address] [place] [address] PCP - General Family Medicine 09/01/21 Galen Heaton MD [address] [place] [address] Primary Staff Physician Cardiology 07/30/18 Thuy Aguirre, BUSINESS STRATEGY MANAGER.STRATEGIC BUYER [address] [place] [address] Cardiology 09/05/23 Team Status: Active Member Role [...] ALEJANDRE Attending Provider, Referring Provider Ac tive Central Sterile Technician Relationship Specialty Start Date End Date Mandeep Houser DO [address] [place] [address] PCP - General Family Medicine 09/01/21 Galen Heaton MD [address] [place] [address] Primary Staff Physician Cardiology 07/30/18 Thuy Aguirre, BUSINESS STRATEGY MANAGER.STRATEGIC BUYER [address] [place] [address] Cardiology 09/05/23 Central Sterile Technician Relationship Specialty Start Date End Date Mandeep Houser DO [address] [place] [address] PCP - General Family Medicine 09/01/21 Galen Heaton MD [address] [place] [address] Primary Staff Physician Cardiology 07/30/18 Thuy Aguirre, BUSINESS STRATEGY MANAGER.STRATEGIC BUYER [address] [place] [address] Cardiology 09/05/23 Central Sterile Technician Relationship Specialty Start Date End Date Mandeep Houser DO [address] [place] [address] PCP - General Family Medicine 09/01/21 Galen Heaton MD [address] [place] [address] Primary Staff Physician Cardiology 07/30/18 Thuy Aguirre, BUSINESS STRATEGY MANAGER.STRATEGIC BUYER [address] [place] [address] Cardiology 09/05/23 Central Sterile Technician Relationship Specialty Start Date End Date Mandeep Houser DO [address] [place] [address] PCP - General Family Medicine 09/01/21 Galen Heaton MD [address] [place] [address] Primary Staff Physician Cardiology 07/30/18 Thuy Aguirre, BUSINESS STRATEGY MANAGER.STRATEGIC BUYER [address] [place] [address] Cardiology 09/05/23 Central Sterile Technician Relationship Specialty Start Date End Date Mandeep Houser DO [address] [place] [address] PCP - General Family Medicine 09/01/21 Galen Heaton MD [address] [place] [address] Primary Staff Physician Cardiology 07/30/18 Thuy Aguirre, BUSINESS STRATEGY MANAGER.STRATEGIC BUYER [address] [place] [address] Cardiology 09/05/23 Central Sterile Technician Relationship Specialty Start Date End Date Mandeep Houser DO [address] [place] [address] PCP - General Family Medicine 09/01/21 Galen Heaton MD [address] [place] [address] Primary Staff Physician Cardiology 07/30/18 Thuy Aguirre, BUSINESS STRATEGY MANAGER.STRATEGIC BUYER [address] [place] [address] Cardiology 09/05/23 Central Sterile Technician Relationship Specialty Start Date End Date Mandeep Houser DO [address] [place] [address] PCP - General Family Medicine 09/01/21 Galen Heaton MD [address] [place] [address] Primary Staff Physician Cardiology 07/30/18 Thuy Aguirre, BUSINESS STRATEGY MANAGER.STRATEGIC BUYER [address] [place] [address] Cardiology 09/05/23 Central Sterile Technician Relationship Specialty Start Date End Date Mandeep Houser DO [address] [place] [address] PCP - General Family Medicine 09/01/21 Galen Heaotn MD [address] [place] [address] Primary Staff Physician Cardiology 07/30/18 Thuy Aguirre, BUSINESS STRATEGY MANAGER.STRATEGIC BUYER [address] [place] [address] Cardiology 09/05/23 Central Sterile Technician Relationship Specialty Start Date End Date Mandeep Houser DO [address] [place] [address] PCP - General Family Medicine 09/01/21 Galen Heaton MD [address] [place] [address] Primary Staff Physician Cardiology 07/30/18 Thuy Aguirre, BUSINESS STRATEGY MANAGER.STRATEGIC BUYER [address] [place] [address] Cardiology 09/05/23 Central Sterile Technician Relationship Specialty Start Date End Date Mandeep Houser DO [address] [place] [address] PCP - General Family Medicine 09/01/21 Galen Heaton MD [address] [place] [address] Primary Staff Physician Cardiology 07/30/18 Thuy Aguirre, BUSINESS STRATEGY MANAGER.STRATEGIC BUYER [address] [place] [address] Cardiology 09/05/23 Central Sterile Technician Relationship Specialty Start Date End Date Mandeep Houser DO [address] [place] [address] PCP - General Family Medicine 09/01/21 Galen Heaton MD [address] [place] [address] Primary Staff Physician Cardiology 07/30/18 Thuy Aguirre, BUSINESS STRATEGY MANAGER.STRATEGIC BUYER [address] [place] [address] Cardiology 09/05/23 Central Sterile Technician Relationship Specialty Start Date End Date Mandeep Houser DO [address] [place] [address] PCP - General Family Medicine 09/01/21 Galen Heaton MD [address] [place] [address] Primary Staff Physician Cardiology 07/30/18 Thuy Aguirre, BUSINESS STRATEGY MANAGER.STRATEGIC BUYER [address] [place] [address] Cardiology 09/05/23 Central Sterile Technician Relationship Specialty Start Date End Date Mandeep Houser DO [address] [place] [address] PCP - General Family Medicine 09/01/21 Galen Heaton MD [address] [place] [address] Primary Staff Physician Cardiology 07/30/18 Thuy Aguirre, BUSINESS STRATEGY MANAGER.STRATEGIC BUYER [address] [place] [address] Cardiology 09/05/23 Central Sterile Technician Relationship Specialty Start Date End Date Mandeep Houser DO [address] [place] [address] PCP - General Family Medicine 09/01/21 Galen Heaton MD [address] [place] [address] Primary Staff Physician Cardiology 07/30/18 Thuy Aguirre, BUSINESS STRATEGY MANAGER.STRATEGIC BUYER [address] [place] [address] Cardiology 09/05/23 Central Sterile Technician Relationship Specialty Start Date End Date Mandeep Houser DO [address] [place] [address] PCP - General Family Medicine 09/01/21 Galen Heaton MD [address] [place] [address] Primary Staff Physician Cardiology 07/30/18 Thuy Aguirre, BUSINESS STRATEGY MANAGER.STRATEGIC BUYER [address] [place] [address] Cardiology 09/05/23 ProviderUvaldo MD Recruiting Specialist 11/18/23 12/01/23 Central Sterile Technician Relationship Specialty Start Date End Date Mandeep Houser DO [address] [place] [address] PCP - General Family Medicine 09/01/21 Galen Heaton MD [address] [place] [address] Primary Staff Physician Cardiology 07/30/18 Thuy Aguirre, BUSINESS STRATEGY MANAGER.STRATEGIC BUYER [address] [place] [address] Cardiology 09/05/23 Central Sterile Technician Relationship Specialty Start Date End Date Mandeep Houser DO [address] [place] [address] PCP - General Family Medicine 09/01/21 Galen Heaton MD [address] [place] [address] Primary Staff Physician Cardiology 07/30/18 Thuy Aguirre BUSINESS STRATEGY MANAGER.STRATEGIC BUYER [address] [place] [address] Cardiology 09/05/23 Central Sterile Technician Relationship Specialty Start Date End Date Mandeep Houser DO [address] [place] [id number] PCP - General Family Medicine 09/01/21 Galen Heaton MD [address] [place] [address] Primary Staff Physician Cardiology 07/30/18 Thuy Aguirre, BUSINESS STRATEGY MANAGER.STRATEGIC BU[place]ER [address] [place] [address] Cardiology 09/05/23 Central Sterile Technician Relationship Specialty Start Date End Date Mandeep Houser DO [address] [place] [address] PCP - General Family Medicine 09/01/21 Galen Heaton MD [address] [place] [address] Primary Staff Physician Cardiology 07/30/18 Central Sterile Technician Relationship Specialty Start Date End Date Mandeep Houser DO [address] [place] [address] PCP - General Family Medicine 09/01/21 Galen Heaton MD [address] [place] [address] Primary Staff Physician Cardiology 07/30/18 Thuy Aguirre, BUSINESS STRATEGY MANAGER.STRATEGIC BUYER [address] [place] [address] Cardiology 09/05/23 Central Sterile Technician Relationship Specialty Start Date End Date Mandeep Houser DO [address] [place] [address] PCP - General Family Medicine 09/01/21 Galen Heaton MD [address] [place] [employer], [place] [id number] Primary Staff Physician Cardiology 07/30/18 Thuy Aguirre, BUSINESS STRATEGY MANAGER.STRATEGIC BUYER [address] [place], [place] [id number] Cardiology 09/05/23 Central Sterile Technician Relationship Specialty Start Date End Date Mandeep Houser DO [address] [place] [address] PCP - General Family Medicine 09/01/21 Galen Heaton MD [address] [place] [employer], [place] [id number] Primary Staff Physician Cardiology 07/30/18 Central Sterile Technician Relationship Specialty Start Date End Date Mandeep Houser DO [address] [place] [address] PCP - General Family Medicine 09/01/21 Galen Heaton MD [address] [place] [address] Primary Staff Physician Cardiology 07/30/18 Thuy Aguirre, BUSINESS STRATEGY MANAGER.STRATEGIC BUYER [address] [place], [place] [id number] Cardiology 09/05/23 Central Sterile Technician Relationship Specialty Start Date End Date Maycol Valladares MD [address] [place] [address] PCP - General Internal Medicine 06/14/20 08/31/21 Galen Heaton MD [address] [place] [address] Primary Staff Physician Cardiology 07/30/18 Central Sterile Technician Relationship Specialty Start Date End Date Maycol Valladares MD [address] [place] [address] PCP - General Internal Medicine 06/14/20 08/31/21 Galen Heaton MD [address] [place] [address] Primary Staff Physician Cardiology 07/30/18 Central Sterile Technician Relationship Specialty Start Date End Date Mandeep Houser DO [address] [place] [address] PCP - General Family Medicine 09/01/21 Galen Heaton MD [address] [place] [address] Primary Staff Physician Cardiology 07/30/18 Thuy Aguirre, BUSINESS STRATEGY MANAGER.STRATEGIC BUYER [address] [place] [address] Cardiology 09/05/23 Central Sterile Technician Relationship Specialty Start Date End Date Mandeep Houser DO [address] [place] [address] PCP - General Family Medicine 09/01/21 Galen Heaton MD [address] [place] [address] Primary Staff Physician Cardiology 07/30/18 Thuy Aguirre, BUSINESS STRATEGY MANAGER.STRATEGIC BUYER [address] [place] [address] Cardiology 09/05/23 Central Sterile Technician Relationship Specialty Start Date End Date Mandeep Houser DO [address] [place] [address] PCP - General Family Medicine 09/01/21 Galen Heaton MD [address] [place] [address] Primary Staff Physician Cardiology 07/30/18 Thuy Aguirre, BUSINESS STRATEGY MANAGER.STRATEGIC BUYER [address] [place] [address] Cardiology 09/05/23 Central Sterile Technician Relationship Specialty Start Date End Date Mandeep Houser DO [address] [place] [address] PCP - General Family Medicine 09/01/21 Galen Heaton MD [address] [place] [address] Primary Staff Physician Cardiology 07/30/18 Thuy Aguirre, BUSINESS STRATEGY MANAGER.STRATEGIC BUYER [address] [place] [address] Cardiology 09/05/23 Central Sterile Technician Relationship Specialty Start Date End Date Mandeep Houser DO [address] [place] [address] PCP - General Family Medicine 09/01/21 Galen Heaton MD [address] [place] [address] Primary Staff Physician Cardiology 07/30/18 Thuy Aguirre, BUSINESS STRATEGY MANAGER.STRATEGIC BUYER [address] [place] [address] Cardiology 09/05/23 Rupali Nascimento, BUSINESS STRATEGY MANAGER.STRATEGIC BUYER [address] [place] [address] Recruiting Specialist Family Medicine 04/20/24 [facility], BUSINESS STRATEGY MANAGER.STRATEGIC BUYER [address] [place] [address] Recruiting Specialist Family Medicine 04/20/24 Central Sterile Technician Relationship Specialty Start Date End Date Mandeep Houser DO [address] [place] [address] PCP - General Family Medicine 09/01/21 Galen Heaton MD [address] [place] [address] Primary Staff Physician Cardiology 07/30/18 Thuy Aguirre, BUSINESS STRATEGY MANAGER.STRATEGIC BUYER [address] [place] [address] Cardiology 09/05/23 Rupali Nascimento, BUSINESS STRATEGY MANAGER.STRATEGIC BUYER [address] [place] [address] Recruiting Specialist Family Medicine 04/20/24 [facility], BUSINESS STRATEGY MANAGER.STRATEGIC BUYER [address] [place] [address] Recruiting Specialist Family Medicine 04/20/24 Central Sterile Technician Relationship Specialty Start Date End Date Mandeep Houser DO [address] [place] [address] PCP - General Family Medicine 09/01/21 Galen Heaton MD [address] [place] [address] Primary Staff Physician Cardiology 07/30/18 Thuy Aguirre BUSINESS STRATEGY MANAGER.STRATEGIC BUYER [address] [place] [address] Cardiology 09/05/23 Rupali Nascimento BUSINESS STRATEGY MANAGER.STRATEGIC BUYER [address] [place] [address] Recruiting Specialist Family Medicine 04/20/24 Alejandrina Harvey APRN.STRATEGIC BUYER [address] [place] [address] Recruiting Specialist Family Medicine 04/20/24 Central Sterile Technician Relationship Specialty Start Date End Date Mandeep Houser DO [address] [place] [address] PCP - General Family Medicine 09/01/21 Galen Heaton MD [address] [place] [address] Primary Staff Physician Cardiology 07/30/18 Thuy Aguirre BUSINESS STRATEGY MANAGER.STRATEGIC BUYER [address] [place] [address] Cardiology 09/05/23 Rupali Nascimento BUSINESS STRATEGY MANAGER.STRATEGIC BUYER [address] [place] [address] Recruiting Specialist Family Medicine 04/20/24 Alejandrina Harvey BUSINESS STRATEGY MANAGER.STRATEGIC BUYER [address] [place] [address] Recruiting Specialist Family Medicine 04/20/24 Central Sterile Technician Relationship Specialty Start Date End Date Mandeep Houser DO [address] [place] [address] PCP - General Family Medicine 09/01/21 Galen Heaton MD [address] [place] [address] Primary Staff Physician Cardiology 07/30/18 Thuy Aguirre, BUSINESS STRATEGY MANAGER.STRATEGIC BUYER [address] [place], [place] [id number] Cardiology 09/05/23 Rupali Nascimento, BUSINESS STRATEGY MANAGER.STRATEGIC BUYER [address] [place] [address] Recruiting Specialist Family Medicine 04/20/24 Alejandrina Harvey, BUSINESS STRATEGY MANAGER.STRATEGIC BUYER [address] [place] [address] Recruiting Specialist Family [facility] 04/20/24 Central Sterile Technician Relationship Specialty Start Date End Date Mandeep Houser DO [address] [place] [address] PCP - General Family Medicine 09/01/21 Galen Heaton MD [address] [place] [address] Primary Staff Physician Cardiology 07/30/18 Thuy Aguirre, BUSINESS STRATEGY MANAGER.STRATEGIC BUYER [address] [place], [place] [id number] Cardiology 09/05/23 Rupali Nascimento, BUSINESS STRATEGY MANAGER.STRATEGIC BUYER [address] [place] [address] [facility] 04/20/24 Alejandrina Harvey, BUSINESS STRATEGY MANAGER.STRATEGIC BUYER [address] [place] [address] [facility] 04/20/24 Central Sterile Technician Relationship Specialty Start Date End Date Mandeep Houser DO [address] [place] [address] PCP - General Family Medicine 09/01/21 Galen Heaton MD [address] [place], [place] [address] Primary Staff Physician Cardiology 07/30/18 Thuy Aguirre, BUSINESS STRATEGY MANAGER.STRATEGIC BUYER [address] [place], [place] [id number] Cardiology 09/05/23 Rupali Nascimento, BUSINESS STRATEGY MANAGER.STRATEGIC BUYER [address] [place] [address] [facility] 04/20/24 Alejandrina Harvey, BUSINESS STRATEGY MANAGER.STRATEGIC BUYER [address] [place] [address] [facility] 04/20/24 Central Sterile Technician Relationship Specialty Start Date End Date Mandeep Houser DO [address] [place] [address] PCP - General Family Medicine 09/01/21 Galen Heaton MD [address] [place] [place], [place] [id number] Primary Staff Physician Cardiology 07/30/18 Thuy Aguirre, BUSINESS STRATEGY MANAGER.STRATEGIC BUYER [address] [place] [address] Cardiology 09/05/23 Alejandrina Harvey, BUSINESS STRATEGY MANAGER.STRATEGIC BUYER [address] [place] [address] [facility] 04/20/24 Central Sterile Technician Relationship Specialty Start Date End Date Mandeep Houser DO [address] [place] [address] PCP - General Family Medicine 09/01/21 Galen Heaton MD [address] [place] [address] Primary Staff Physician Cardiology 07/30/18 Thuy Aguirre, BUSINESS STRATEGY MANAGER.STRATEGIC BUYER [address] [place] [address] Cardiology 09/05/23 Alejandrina Harvey, BUSINESS STRATEGY MANAGER.STRATEGIC BUYER [address] [place] [address] [facility] 04/20/24 Central Sterile Technician Relationship Specialty Start Date End Date Mandeep Houser DO [address] [place] [address] PCP - General Family Medicine 09/01/21 Galen Heaton MD [address] [place] [address] Primary Staff Physician Cardiology 07/30/18 Thuy Aguirre BUSINESS STRATEGY MANAGER.STRATEGIC BUYER [address] [place] [address] Cardiology 09/05/23 Alejandrina Harvey, BUSINESS STRATEGY MANAGER.STRATEGIC BUYER [address] [place] [address] Recruiting Specialist Family Medicine 04/20/24 Central Sterile Technician Relationship Specialty Start Date End Date Mandeep Houser DO [address] [place] [address] PCP - General Family Medicine 09/01/21 Galen Heaton MD [address] [place] [address] Primary Staff Physician Cardiology 07/30/18 Thuy Aguirre, BUSINESS STRATEGY MANAGER.STRATEGIC BUYER [address] [place], [place] [id number] Cardiology 09/05/23 Alejandrina Harvey, BUSINESS STRATEGY MANAGER.STRATEGIC BUYER [address] [place] [address] Recruiting Specialist [facility] Medicine 04/20/24 Central Sterile Technician Relationship Specialty Start Date End Date Mandeep Houser DO [address] [place] [address] PCP - General Family Medicine 09/01/21 Galen Heaton MD [address] [place] [address] Primary Staff Physician Cardiology 07/30/18 Thuy Aguirre, BUSINESS STRATEGY MANAGER.STRATEGIC BUYER [address] [place], [place] [id number] Cardiology 09/05/23 Alejandrina Harvey, BUSINESS STRATEGY MANAGER.STRATEGIC BUYER [address] [place] [address] Recruiting Specialist Family Medicine 04/20/24 Central Sterile Technician Relationship Specialty Start Date End Date Mandeep Houser DO [address] [place] [address] PCP - General Family Medicine 09/01/21 Galen Heaton MD [address] [place] [address] Primary Staff Physician Cardiology 07/30/18 Thuy Aguirre, BUSINESS STRATEGY MANAGER.STRATEGIC BUYER [address] [place], [place] [id number] Cardiology 09/05/23 Alejandrina Harvey, BUSINESS STRATEGY MANAGER.STRATEGIC BUYER [facility] [place] [address] Recruiting Specialist Family Medicine 04/20/24 Brittani Yap, BUSINESS STRATEGY MANAGER.STRATEGIC BUYER [facility] [place] [address] Recruiting Specialist Family Medicine 10/27/24 Central Sterile Technician Relationship Specialty Start Date End Date Mandeep Houser DO [address] [place] [address] PCP - General Family Medicine 09/01/21 Galen Heaton MD [address] [place] [address] Primary Staff Physician Cardiology 07/30/18 Thuy Aguirre BUSINESS STRATEGY MANAGER.STRATEGIC BUYER [address] [place], [place] [id number] Cardiology 09/05/23 Alejandrina Harvey, BUSINESS STRATEGY MANAGER.STRATEGIC BUYER [address] [place] [address] Recruiting Specialist Family Medicine 04/20/24 Brittani Yap, BUSINESS STRATEGY MANAGER.STRATEGIC BUYER [address] [place], [place] [address] [facility] 10/27/24 Central Sterile Technician Relationship Specialty Start Date End Date Mandeep Houser DO [address] [place] [address] PCP - General Family Medicine 09/01/21 Galen Heaton MD [address] [place] [address] Primary Staff Physician Cardiology 07/30/18 Thuy Aguirre, BUSINESS STRATEGY MANAGER.STRATEGIC BUYER [address] [place], [place] [id number] Cardiology 09/05/23 Alejandrina Harvey, BUSINESS STRATEGY MANAGER.STRATEGIC BUYER [address] [place] [address] [facility] 04/20/24 Brittani Yap, BUSINESS STRATEGY MANAGER.STRATEGIC BUYER [address] [place], [place] [address] [facility] 10/27/24 Team Status: Active Member Role/Relationship Status [...] BE BASED ON THE PRIMARY CLINICAL RECORDS. [facility]. provides no warranty or guarantee of the accuracy or completeness of information in this document.
--- OUTSIDE RECORDS SUMMARY | 2024-11-14 05:16 | XMS RPT_ITS | CCD ---
Author Organization [facility] Care Team Providers Care Medical Laboratory Assistant Name Role Phone Rafael Frankolphus Unavailable Unavailab [...] Mandeep Houser DO Primary Care Provider Galen Heatno MD Unavailable Zac III, Rafael Myers Primary Care Provider Fitz Mcqueen RN Unavailable MANDEEP HOUSER Primary Care Unavailable DEANN BRYAN, PILI Consulting Unavailable LOUISA CAMP Admitting Unavailable ANGELICA SILVA Attending Unavailable REMINGTON CAI Referring Unavailabl e Mandeep Houser DO Primary Care Provider Timothy TONGN.MEDICAL SCIENTIST, Thuy Serrato Unavailable FLACA GREENFIELD Attending Unavailable [...] Maycol Valladares MD Primary Care Provider [phone] Azam AQUATIC LIFE LABORER.MEDICAL SCIENTIST, Rupali Adelina Unavailable Yasir AQUATIC LIFE LABORER.MEDICAL SCIENTIST, Alejandrina Unavailable ZAINAB, CH Referring Unavailable [...] Care Unavailable ZAINAB, CH Attending Unavailable Marely AQUATIC LIFE LABORER.MEDICAL SCIENTIST, Brittani Ji Unavailable [phone] HOUSER, [...] (2 sources) amLODIPine Drug Allergy 0 Intolerance [facility] Amoxicillin / Clavulanate (2 sources) Amoxicillin / Clavulanate Drug Allergy 3 GI Upset [facility] HMG-CoA Reductase Inhibitors (statins) (2 sources) atorvastatin Drug Allergy 0 Myalgia [facility] Opioid Agonists (2 sources) Codeine Drug Allergy 3 Mental Status Change [facility] Work Phone: Sulfonamides (antibiotic) (2 sources) Sulfonamides (Antibiotic) Drug Allergy 0 Intolerance [facility] (20 sources) amLODIPine; Translations: [AMLODIPINE] Drug Allergy 0 Other: See Comments, Intolerance [facility] (2 sources) Amoxicillin / Clavulanate Drug Allergy [facility] Work Phone: (20 sources) Codeine; Translations: [CODEINE] Drug Allergy 3 Dizziness, Mental Status Change [facility] Work Phone: (2 sources) Sulfonamides (Antibiotic) Allergy to drug (finding) Headache [facility] Work Phone: (20 sources) Amoxicillin / Clavulanate; Translations: [AMOXICILLIN-POT CLAVULANATE] Drug Allergy 3 GI Upset [facility] (20 sources) Angiotensin-conve rting enzyme inhibitor agent; Translations: [EMILIO INHIBITORS] Drug Allergy 0 Other: See Comments [facility] (20 sources) atorvastatin; Translations: [ATORVASTATIN] Drug Allergy 0 Myalgia [facility] (20 sources) beta-Blocking agent; Translations: [BETA-BLOCKERS (BETA-ADRENERGIC BLOCKING AGTS)] Drug Allergy 0 Other: See Comments [facility] (20 sources) Sulfonamides (Antibiotic); Translations: [SULFA (SULFONAMIDE ANTIBIOTICS)] Drug Allergy 0 Other: See Comments, Intolerance [facility] (20 sources) Angiotensin-conve rting enzyme inhibitor agent Drug Allergy 0 Other: See Comments, Intolerance [facility] (20 sources) beta-Blocking agent Drug Allergy 0 Other: See Comments, Intolerance [facility] (20 sources) sacubitril / valsartan; Translations: [SACUBITRIL-VALSA RTAN] Drug Allergy 4 Intolerance [facility] (1 source) Amoxicillin Drug Allergy 4 [facility] Rep[facility] (1 source) Clavulanate Drug Allergy 4 [facility] Rep[facility] (1 source) Amoxicillin Drug Allergy 5 PT UNSURE OF REACTION [facility] (1 source) Clavulanate Drug Allergy 5 PT UNSURE OF REACTION [facility] Medications Current Medications Medication Drug Class(es) Dates [...] as needed. Take 2 tablets by mo [facility] every 8 hours as needed for [...] on above: Take 1 capsule by mo [facility] three times daily as needed for [...] 1 tablet by jc th once daily. [place]-3 Fatty Acids-Vitamin E (FISH OIL) 1,000 mg cap (1 source) End: 04-30-20 take 1 capsule by mouth once daily [place]-3 Fatty Acids-Vitamin E (FISH OIL) 1,000 mg cap Take 1 capsule by mouth once daily. 0 04/30/2020 Discontinued Comment on above: Take 1 capsule by mo [facility] once daily. omeprazole 20 mg delayed [...] End: 07-13-2023 OREGANO OIL ORAL [facility] 0 07/13/2023 Discontinued OREGANO [...] mg tablet Indications: Coronary artery disease involving benton coronary artery of benton heart with other form of angina pectoris [...] Coronary atherosclerosis; Translations: [Atherosclerotic heart disease of benton coronary artery with other forms of angina [...] 08-02-2022 Chronic Other aftercare (1 source) Other intermediate (current) drug therapy; Translations: [Medication management] Onset: [...] Auto (Unsp spec) [#/Vol] 2.58 10*3/uL 0.83-4.51 [facility] Absolute neutrophil countOrd ered By: Jose Goldberg on 11-13-2024 Neutrophils (Bld) [#/Vol] 5.9 10*3/uL 2.0-7.7 [facility] Anion gap in Serum or Plasma Ordered By: Jose Goldberg on 11-13-2024 Anion gap [Moles/Vol] 12 mmol/L 5-15 [facility] Automated lymphocyte count a s percentage of total leukocytesOrdered By: Jose Goldberg on 11-13-2024 Lymphocytes/100 WBC Auto (Unsp spec) 26.8 % 19-41 [facility] BUN/creatinine ratioOrdered By: Jose Goldberg on 11-13-2024 Urea nitrogen/Creatinine [Mass ratio] 22.8 mg/mg High 10-20 [facility] Basophil percentageOrdered B y: Jose Goldberg on 11-13-2024 Basophils/100 WBC (Bld) 1.0 % 0-1 [facility] Bilirubin Test strip Ql (U)O rdered By: Jose Goldberg on 11-13-2024 Bilirubin Ql (U) Negative Negative [facility] CBC + diff autoon 11-13-2024 CBC W Auto Differential panel (Bld) [facility] Carbon dioxide, total [Moles /volume] in Central venous bloodOrdered By: Jose Goldberg on 11-13-2024 CO2 [Moles/Vol] 20.2 mmol/L Low 21.0-32.0 [facility] Chloride assayOrdered By: Skyla Goldberg on 11-13-2024 Chloride [Moles/Vol] 107 mmol/L 98-108 [facility] Eosinophil percentageOrdered By: Jose Goldberg on 11-13-2024 Eosinophils/100 WBC (Bld) 1.3 % 0-5 [facility] Erythrocyte distribution wid th ratioOrdered By: Jose Goldberg on 11-13-2024 Erythrocyte distribution width (RBC) [Ratio] 13.8 % 11.6-14.6 [facility] Erythrocyte distribution wid th standard deviationOrdered By: Jose Goldberg on 11-13-2024 Erythrocyte distribution width (RBC) [Ratio] 45.6 fl High 35.1-43.9 [facility] Glomerular filtration rate ( GFR) estimation/1.73 sq m using serum, plasma, or whole bOrdered By: Jose Goldberg on 11-13-2024 GFR/1.73 sq M.predicted among non-blacks MDRD (S/P/Bld) [Vol rate/Area] 61 mL/min/{1.73_m2} >60 [facility] Comment on above: mL/min/1.73m2 CKD-EP I Creatinine Equation (2020) Hematocrit Auto (Bld) [Volum e fraction]Ordered By: Jose Goldberg on 11-13-2024 Hematocrit (Bld) [Volume fraction] 37.5 % 37-47 [facility] Hemoglobin measurementOrdere d By: Jose Goldberg on 11-13-2024 Hemoglobin (Bld) [Mass/Vol] 12.1 g/dL 12.0-15.0 [facility] Immature granulocytes/100 WB C Auto (Bld)Ordered By: Jose Goldberg on 11-13-2024 Immature granulocytes/100 WBC (Bld) 0.700 % 0.0-0.9 [facility] Comment on above: IG% - Immature Granu locytes (promyelocytes, myelocytes and metamyelocytes) > 1% indicates that a LEFT SHIFT is Present. Ketones Test strip Ql (U)Ord ered By: Jose Goldberg on 11-13-2024 Ketones Ql (U) Negative Negative [facility] MCV (mean corpuscular volume ) determinationOrdered By: Jose Goldberg on 11-13-2024 MCV (RBC) [Entitic vol] 90.1 fL 81-99 [facility] Mean corpuscular hemoglobin (MCH) determinationOrdered By: Jose Goldberg on 11-13-2024 MCH (RBC) [Entitic mass] 29.1 pg 27.0-32.0 [facility] Mean corpuscular hemoglobin concentration (MCHC) determinationOrdered By: Jose Goldberg on 11-13-2024 MCHC (RBC) [Mass/Vol] 32.3 g/dL 32-36 [facility] Mean platelet volume determi nationOrdered By: Jose Goldberg on 11-13-2024 Platelet mean volume (Bld) [Entitic vol] 9.7 fL 6.2-12.0 [facility] Microscopic analysis of urin e for red blood cells (RBC)Ordered By: Jose Goldberg on 11-13-2024 Microscopic analysis of urine for red blood cells (RBC) 0 SEEN /hpf 0-5 [facility] Monocyte percentageOrdered B y: Jose Goldberg on 11-13-2024 Monocytes/100 WBC (Bld) 8.8 % 0-10 [facility] Mucus LM Ql (Urine sed)Order ed By: Jose Goldberg on 11-13-2024 Mucus Ql (Urine sed) 0 SEEN /hpf [facility] Neutrophil percentageOrdered By: Jose Goldberg on 11-13-2024 Neutrophils/100 WBC (Bld) 61.4 % 47-70 [facility] Nitrite Test strip Ql (U)Ord ered By: Jose Goldberg on 11-13-2024 Nitrite Ql (U) Negative Negative [facility] Nucleated red blood cell per centageOrdered By: Jose Goldberg on 11-13-2024 Nucleated RBC/100 WBC (Bld) [Ratio] 0 % 0-5 [facility] Platelet countOrdered By: Skyla Goldberg on 11-13-2024 Platelets (Bld) [#/Vol] 295 10*3/uL 150-450 [facility] Potassium measurement (mass/ volume)Ordered By: Jose Goldberg on 11-13-2024 Potassium (Unsp spec) [Mass/Vol] 4.3 mmol/L 3.3-5.1 [facility] Comment on above: Hemolysis present, R esults could be affected. Protein Test strip Ql (U)Ord ered By: Jose Goldberg on 11-13-2024 Protein Ql (U) 15 mg/dl High Negative [facility] RBC Auto (Bld) [#/Vol]Ordere d By: Jose Goldberg on 11-13-2024 RBC (Bld) [#/Vol] 4.16 10*6/uL Low 4.2-5.4 [facility] Serum creatinine measurement (mass/volume)Ordered By: Jose Goldberg on 11-13-2024 Creatinine [Mass/Vol] 0.96 mg/dL 0.70-1.20 [facility] Serum glucose measurement (m ass/volume)Ordered By: Jose Goldberg on 11-13-2024 Glucose [Mass/Vol] 122 mg/dL High 70-99 [facility] Serum or plasma calcium franklin urement (mass/volume)Ordered By: Jose Goldberg on 11-13-2024 Calcium [Mass/Vol] 9.3 mg/dL 7.6-11.0 [facility] Serum or plasma urea nitroge n measurement (mass/volume)Ordered By: Jose Goldberg on 11-13-2024 Urea nitrogen [Mass/Vol] 22 mg/dL High 4-19 [facility] Sodium levelOrdered By: Jermaine Goldberg on 11-13-2024 Sodium [Moles/Vol] 139 mmol/L 133-145 [facility] Squamous epithelial cells de tection in urine sediment by light microscopyOrdered By: Jose Goldberg on 11-13-2024 Epithelial cells.squamous LM Ql (Urine sed) 5-10 SEEN /hpf 5-10 [facility] Urine clarityOrdered By: Inna Goldberg on 11-13-2024 Clarity (U) Clear Clear [facility] Urine color determinationOrd ered By: Jose Goldberg on 11-13-2024 Color (U) Yellow Yellow [facility] Urine glucose detectionOrder ed By: Jose Goldberg on 11-13-2024 Glucose Ql (U) Normal mg/dl Normal [facility] Urine leukocyte esterase det ection by dipstickOrdered By: Jose Goldberg on 11-13-2024 Leukocyte esterase Test strip Ql (U) Negative Negative [facility] Urine pHOrdered By: Jose Goldberg on 11-13-2024 pH (U) 6.5 [pH] 5.0 - 8.0 [facility] Urine sediment bacteria coun t by microscopy (number/high power field)Ordered By: Jose Goldberg on 11-13-2024 Bacteria LM.HPF (Urine sed) [#/Area] RARE /hpf None Seen [facility] Urine specific gravity measu rementOrdered By: Jose Goldberg on 11-13-2024 Specific gravity (U) [Rel density] 1.010 1.002-1.030 [facility] Urine urobilinogen measureme ntOrdered By: Jose Goldberg on 11-13-2024 Urobilinogen Ql (U) Normal mg/dl Normal [facility] White blood cell (WBC) count Ordered By: Jose Goldberg on 11-13-2024 WBC (Bld) [#/Vol] 9.6 10*3/uL 4.4-11.0 [facility] White blood cell countOrdere d By: Jose Goldberg on 11-13-2024 White blood cell count 0-5 SEEN /hpf 0-5 [facility] ECG COMPLETEon 11-04-2024 Atrial Rate 63 BPM [facility] Calculated P [place] 16 degrees [facility] Calculated R [place] -81 degrees [facility] Calculated T [place] 24 degrees [facility] P-R Interval 118 ms [facility] QRS Duration 118 ms [facility] QT Interval 452 ms [facility] QTC Calculation (Bazett) 462 ms [facility] Ventricular Rate 63 BPM [facility] ATRIAL-SENSED VENTRICULAR-PACED RHYTHM WITH OCCASIONAL SINUS COMPLEXES ABNORMAL ECG Confirmed by GREGORIA MERCADO MD ([id number]) on 11/04/2024 1:01:22 PM [facility] NAME : SANDRA SCHMITZ PID : [id number] : 1945 Gender : Female Race : ORD : [id number] Procedure Date : Nov 03 2024 14:14:06 [...] by : LISANDRO, [facility] CNOVon 11-03-2024 CNOV Office Visit (CARDFV ) ----- SANDRA SCHMITZ ([id number]) 1945 F Date Time Provider Department 11/03/24 3:45 PM HOLTER/EVENT MONITOR EDENILSON WALLACE During your visit today, we recorded the following information about you: Dilcia Hooks MA 11/03/2024 3:58 PM Signed EVENT MONITOR DISPOSABLE PATCH INSTRUCTIONS Patient Name: Sandra Schmitz [facility] Number: [id number] Skin prepped and cleansed with alcohol Patch secured to prepped area Monitor Activated Serial #: [id number] Patient Instructed: Prescribed order timeframe Bathing guidelines Usage of event button and diary documentation Return of monitor at the end of prescribed order Call with problems [phone] or [phone]. [phone] Patient expresses a good understanding of instructions [...] Assessed Primary Visit Diagnosis:Cardiac resynchronization therapy defibrillator (DISTRICT FIRE MANAGEMENT OFFICER-D) in place [Z95.810] Prescriptions as of 11/03/2024 [...] right [M19.071] 08/02/2022 Coronary artery disease involving benton lopez*08/02/2022 Vitamin D deficiency [E55.9] 08/02/2022 Somatic dysfunction of head region [M99.00] 08/10/2022 Chronic neck pain [M54.2, G89.29] 08/24/2022 Chronic bronchitis (HCC) [J42] 09/11/2022 SVT (supraventricular tachycardia) (HCC) [I47.1*09/11/2022 Combined systolic and diastoli (more content not included)... Normal [facility] CNOV Office Visit (CACHFV ) ----- SANDRA SCHMITZ ([id number]) 1945 F Date Time Provider Department 11/03/24 [...] and weight daily. Please notify us via [employer] if your Systolic BP (top number) < [...] heart kidney injury risk Please send a [employer] message or call with any questions or concerns: Outpatient Number: [phone] Thank you, Pili Wells MD Advanced Heart Failure and Transplant [place] [address] For [facility] patients , contact: [facility]- Section Of Heart Failure and Cardiac Transplant Medicine [facility] - Desk [phone] Nurse Line and for Refills- call [phone] [facility] Scheduling Line- to make appointments- call [phone] Pili Wells MD 11/09/2024 5:30 PM Signed [facility] SECTION OF HEART FAILURE and CARDIAC TRANSPLANT MEDICINE [facility] OUTPATIENT VISIT DATE November 03, 2024 OUTPATIENT VISIT TYPE Established PRIMARY CARE PHYSICIAN: Mandeep Houser [address] [place] [address] CHIEF COMPLAINT: Follow Up HISTORY OF PRESENT ILLNESS: Sandra Schmitz is a 78 year old female with a medical history that includes non-ischemic CM, HTN, Hypothyroidism, LBBB 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 who is referred to me for heart failure management. Sandra Schmitz was initially diagnosed with non-ischemic CM ~ 4 yrs ago and was doing well on losartan and metoprolol. She had progressive sxs of dyspnea on exertion, therefore she was started on entresto and farxiga and her sxs persisted and she was admitted locally in [place] and then transferred to for DISTRICT FIRE MANAGEMENT OFFICER consideration. Interval History: Sandra Schmitz was last [...] LVEF 40%, LVEdd 4.8cm. LBBB: chronic. S/p DISTRICT FIRE MANAGEMENT OFFICER 07/2023 Non-obstructive CAD: stable, ischemic testing recently [...] CHF (c (more content not included)... Normal [facility] CNOV Office Visit (CARDFV ) ----- SANDRA SCHMITZ ([id number]) 1945 F Date Time Provider Department 11/03/24 3:30 PM [facility] During your visit today, we recorded the following information about you: Pulse Blood pressure Weight Height 70/minute 119/71 86.2 kg 1.626 m Morenita Hill APRN.MEDICAL SCIENTIST 11/03/2024 3:59 PM Signed [facility] Department of Cardiovascular Medicine SECTION OF ELECTROPHYSIOLOGY AND PACING OUTPATIENT VISIT DATE November 03, 2024 OUTPATIENT VISIT TYPE ESTABLISHED PRIMARY CARE PHYSICIAN: Mandeep Houser [address] [place] [address] CHIEF COMPLAINT: Follow Up HISTORY OF PRESENT ILLNESS: Ms. Schmitz is a 79 year old female, patient of Dr. Wellington and Dr. Wells who presents today for a cardiovascular medicine follow-up visit regarding DISTRICT FIRE MANAGEMENT OFFICER-D which was placed in July of last year during which time she had been admitted to [facility] for acute HFrEF and inability to initiate GDMT. She was deemed excellent candidate for DISTRICT FIRE MANAGEMENT OFFICER therapy and thus had MDT DISTRICT FIRE MANAGEMENT OFFICER-D inserted. Since then, Ms. Schmitz reports that overall she has been feeling well. She has noted over the last several months that when shh is anxious or rushing, she may feel her heart racing with some palpitations. When she rests, symptoms resolve. Overall, since device insertion, she has significantly improved functional capacity. She is compliant with all medications. PMH: Chronic NICM s/p MDT DISTRICT FIRE MANAGEMENT OFFICER-D, dyslipidemia, hypothyroidism, Factor V Leiden, IBS, h/o gout PAST MEDICAL HISTORY Diagnosis Date Acute acalculous cholecystitis 05/30/2020 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 09/22/2020 Acute on chronic systolic CHF (congestive heart failure) ([facility]) 05/03/2020 Aspiration pneumonia ([facility]) 05/30/2020 Chest pain 05/03/2020 Chest pressure 01/23/2013 Chronic diastolic congestive heart failure ([facility]) 02/14/2021 Clostridium difficile diarrhea 09/28/2020 Complete uterovaginal prolapse Cystocele, midline Essential hypertension 06/14/2020 Homozygous Factor V Leiden mutation ([facility]) 05/03/2020 Hypothyroidism IBS (irritable bowel syndrome) [...] once daily (more content not included)... Normal [facility] ECG COMPLETEon 11-03-2024 ECG COMPLETE Ventricular Rate : 5 6 BPM Atrial Rate : 56 BPM P-R Interval : 122 ms QRS Duration : 124 ms Q-T Interval : 478 ms QTC Calculation(Bazett) : 461 ms Calculated P [place] : 36 degrees Calculated R [place] : -50 degrees Calculated T [place] : 89 degrees ATRIAL-SENSED VENTRICULAR-PACED RHYTHM ABNORMAL ECG Confirmed by GREGORIA MERCADO MD ([id number]) on 11/04/2024 1:01:15 PM NAME : SANDRA SCHMITZ PID : [id number] : 1945 Gender : Female Race : ORD : [id number] Procedure Date : Nov 03 2024 15:09:38 Edit Date : Nov 04 2024 13:01:17 Diagnosis: ATRIAL-SENSED VENTRICULAR-PACED RHYTHM ABNORMAL ECG Confirmed by GREGORIA MERCADO MD ([id number]) on 11/04/2024 1:01:15 PM Test Reason : Z95.810 Cardiac resynchronization therapy defibrillator (DISTRICT FIRE MANAGEMENT OFFICER-D) in place Location : 225 : [facility] Overread By : GREGORIA MERCADO MD Edited By : GREGORIA MERCADO MD Referred By : JERED Acquired by : Terrie GRANT [facility] ECG COMPLETE Ventricular Rate : 6 3 BPM Atrial Rate : 63 BPM P-R Interval : 118 ms QRS Duration : 118 ms Q-T Interval : 452 ms QTC Calculation(Bazett) : 462 ms Calculated P [place] : 16 degrees Calculated R [place] : -81 degrees Calculated T [place] : 24 degrees ATRIAL-SENSED VENTRICULAR-PACED RHYTHM WITH OCCASIONAL SINUS COMPLEXES ABNORMAL ECG Confirmed by GREGORIA MERCADO MD ([id number]) on 11/04/2024 1:01:22 PM NAME : SANDRA SCHMITZ PID : [id number] : 1945 Gender : Female Race : ORD : [id number] Procedure Date : Nov 03 2024 14:14:06 [...] : DEANN Acquired by : Terrie MCMAHON [facility] CNOVon 10-21-2024 CNOV Office Visit (FAMPWS ) ----- SANDRA SCHMITZ ([id number]) 1945 F Date Time Provider Department 10/21/24 [...] on chronic systolic CHF (congestive heart failure) ([facility]) 05/03/2020 Aspiration pneumonia ([facility]) 05/30/2020 Chest pain 05/03/2020 Chest pressure 01/23/2013 Chronic diastolic congestive heart failure ([facility]) 02/14/2021 Clostridium difficile diarrhea 09/28/2020 Complete uterovaginal prolapse Cystocele, midline Essential hypertension 06/14/2020 Homozygous Factor V Leiden mutation ([facility]) 05/03/2020 Hypothyroidism IBS (irritable bowel syndrome) [...] without drainage, (more content not included)... Normal [facility] CNOVon 09-30-2024 CNOV Office Visit (FAMPWS ) ----- SANDAR SCHMITZ ([id number]) 1945 F Date Time Provider Department 09/30/24 [...] on chronic systolic CHF (congestive heart failure) ([facility]) 05/03/2020 Aspiration pneumonia ([facility]) 05/30/2020 Chest pain 05/03/2020 Chest pressure 01/23/2013 Chronic diastolic congestive heart failure ([facility]) 02/14/2021 Clostridium difficile diarrhea 09/28/2020 Complete uterovaginal prolapse Cystocele, midline Essential hypertension 06/14/2020 Homozygous Factor V Leiden mutation ([facility]) 05/03/2020 Hypothyroidism IBS (irritable bowel syndrome) [...] Left poste (more content not included)... Normal [facility] CNPNon 08-27-2024 CNPN Telephone ([facility]) ----- SANDRA SCHMITZ ([id number]) 1945 F Date Time Provider Department 08/27/24 DILCIA PEARSON [facility] During your visit today, we recorded the following information about you: Radha Buchanan 08/27/2024 10:21 AM Signed ----- Message from Dilcia Bonilla MD sent at 08/23/2024 9:30 AM EDT ----- I saw her in '24 Please reschedule with Mercedes + device Radha Buchanan 08/27/2024 10:22 AM Signed Call to patient to r/s. Patient is driving out from [place] and would prefer all appointments same day [...] lightheaded Date Reviewed: 07/21/2024 Reviewed by: Kelsey Csota LPN - Fully Assessed Prescriptions as of [...] right [M19.071] 08/02/2022 Coronary artery disease involving benton lopez*08/02/2022 Vitamin D deficiency [E55.9] 08/02/2022 Somatic [...] (HCC) [J96.01]07/13/19 (more content not included)... Normal [facility] CNOVon 08-25-2024 CNOV Office Visit (FAMPWS ) ----- SANDRA SCHMITZ ([id number]) 1945 F Date Time Provider Department 08/25/24 [...] on chronic systolic CHF (congestive heart failure) ([facility]) 05/03/2020 Aspiration pneumonia ([facility]) 05/30/2020 Chest pain 05/03/2020 Chest pressure 01/23/2013 Chronic diastolic congestive heart failure ([facility]) 02/14/2021 Clostridium difficile diarrhea 09/28/2020 Complete uterovaginal prolapse Cystocele, midline Essential hypertension 06/14/2020 Homozygous Factor V Leiden mutation ([facility]) 05/03/2020 Hypothyroidism IBS (irritable bowel syndrome) [...] cervical L (more content not included)... Normal [facility] ECHOon 08-15-2024 Echocardiography Echocardiography Rep ort: Transthoracic Echo [facility] Date of service: 08/15/2024 12:49:59 PM [employer]TER [employer] Ordering physician: ANGEL CASTRO Indication: NICM Technologist: Teagan Murillo [facility] Interpreting physician: Gilmer Carpio MD PATIENT: [...] * * Final * * * CC [employer] Medical Image : [id number] Normal [facility] CNOVon 08-04-2024 CNOV Office Visit (FAMPWS ) ----- SANDRA SCHMITZ ([id number]) 1945 F Date Time Provider Department 08/04/24 2:00 PM [facility] your visit today, we recorded [...] L1-2NRrSBr left (more content not included)... 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 Just still with some fatigue but seems to be getting better. No further cough, no sputum production, no fevers or chills. Heart failure. Has an echo to get scheduled and completed for the screedman/laborer, taking her medications as prescribed. PAST MEDICAL HISTORY Diagnosis Date Acute acalculous cholecystitis 05/30/2020 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 09/22/2020 Acute on chronic systolic CHF (congestive heart failure) ([facility]) 05/03/2020 Aspiration pneumonia ([facility]) 05/30/2020 Chest pain 05/03/2020 Chest pressure [...] tobacco: Never (more content not included)... Normal [facility] 25(OH)D3 SerPl-mCncon 2024 25-hydroxyvitamin D3 [Mass/Vol] 26.0 ng/mL Low 31.0-80.0 [facility] Comment on above: Order Comment: Speci men Type: BLOOD SPECIMENOrdering Facility: [facility] Address: [address] [place] [address] Performed By: #### 1 989-3 ####[facility] LABIA [id number] [address] [place] Bacteria Ur Culton Bacteria identified Cx Nom (U) ORGANISM ID: 1 50,000-<100,000 CFU/ml Normal urogenital kash Normal [facility] Comment on above: Performed By: #### 6 30-4 ####[facility] LABCLIA [id number] [address] [place] CBC W Auto Differential pane l (Bld)on 07-08-2024 Basophils (Bld) [#/Vol] 0.12 10*3/uL High [facility] Basophils/100 WBC (Bld) 1.4 % [facility] Differential cell count method Nom (Bld) Auto [facility] Eosinophils (Bld) [#/Vol] 0.16 10*3/uL [facility] Eosinophils/100 WBC (Bld) 1.8 % [facility] Erythrocyte distribution width (RBC) [Ratio] 14.5 % 11.5 - 15.0 % [facility] Hematocrit (Bld) [Volume fraction] 43.4 % 36.0 - 46.0 % [facility] Hemoglobin (Bld) [Mass/Vol] 13.6 g/dL 11.5 - 15.5 g/dL [facility] Immature granulocytes (Bld) [#/Vol] 0.08 10*3/uL [facility] Immature granulocytes/100 WBC (Bld) 0.9 % [facility] Interpretation and review of laboratory results Abnormal [facility] Lymphocytes (Bld) [#/Vol] 3.59 10*3/uL [facility] Lymphocytes/100 WBC (Bld) 40.5 % [facility] MCH (RBC) [Entitic mass] 28.7 pg 26.0 - 34.0 pg [facility] MCHC (RBC) [Mass/Vol] 31.3 g/dL 30.5 - 36.0 g/dL [facility] MCV (RBC) [Entitic vol] 91.6 fL 80.0 - 100.0 fL [facility] Monocytes (Bld) [#/Vol] 0.81 10*3/uL NINF [facility] Monocytes/100 WBC (Bld) 9.1 % [facility] Neutrophils (Bld) [#/Vol] 4.11 10*3/uL [facility] Neutrophils/100 WBC (Bld) 46.3 % [facility] Nucleated RBC (Bld) [#/Vol] NINF [facility] Nucleated RBC/100 WBC (Bld) [Ratio] 0 % /100 WBC [facility] Platelet mean volume (Bld) [Entitic vol] 10.7 fL 9.0 - 12.7 fL [facility] Platelets (Bld) [#/Vol] 430 10*3/uL High [facility] RBC (Bld) [#/Vol] 4.74 10*6/uL 3.90 - 5.2 0 m/uL [facility] WBC (Bld) [#/Vol] 8.87 10*3/uL [facility] Basophils (Bld) [#/Vol] 0.12 10*3/uL High <0.11 [facility] Comment on above: Order Comment: Speci men Type: BLOOD SPECIMENOrdering Facility: [facility] Address: [address] [place] [address] Performed By: #### 5 7021-8 ####[facility] LABORATORYCLIA [id number] [address] STATES OF [facility] Basophils/100 WBC (Bld) 1.4 % Normal [facility] Comment on above: Order Comment: Speci men Type: BLOOD SPECIMENOrdering Facility: [facility] Address: [address] [place] [address] Performed By: #### 5 7021-8 ####[facility] LABORATORYCLIA [id number] [address] Differential cell count method Nom (Bld) Auto Normal [facility] Comment on above: Order Comment: Speci men Type: BLOOD SPECIMENOrdering Facility: [facility] Address: [address] [place] [address] Performed By: #### 5 7021-8 ####[facility] LABORATORYCLIA [id number] [address] [place] Eosinophils (Bld) [#/Vol] 0.16 10*3/uL Normal <0.46 [facility] Comment on above: Order Comment: Speci men Type: BLOOD SPECIMENOrdering Facility: [facility] Address: [address] [place] [address] Performed By: #### 5 7021-8 ####[facility] LABORATORYCLIA [id number] [address] STATES [facility] Eosinophils/100 WBC (Bld) 1.8 % Normal [facility] Comment on above: Order Comment: Speci men Type: BLOOD SPECIMENOrdering Facility: [facility] Address: [address] [place] [address] Performed By: #### 5 7021-8 ####[facility] LABORATORYCLIA [id number] [address] Erythrocyte distribution width (RBC) [Ratio] 14.5 % Normal 11.5-15.0 [facility] Comment on above: Order Comment: Speci men Type: BLOOD SPECIMENOrdering Facility: [facility] Address: [address] [place] [address] Performed By: #### 5 7021-8 ####[facility] LABORATORYCLIA [id number] [address] Hematocrit (Bld) [Volume fraction] 43.4 % Normal 36.0-46.0 [facility] Comment on above: Order Comment: Speci men Type: BLOOD SPECIMENOrdering Facility: [facility] Address: [address] [place] [address] Performed By: #### 5 7021-8 ####[facility] LABORATORYCLIA [id number] [place] [id number] [place] Hemoglobin (Bld) [Mass/Vol] 13.6 g/dL Normal 11.5-15.5 [facility] Comment on above: Order Comment: Speci men Type: BLOOD SPECIMENOrdering Facility: [facility] Address: [address] [place] [address] Performed By: #### 5 7021-8 ####[facility] LABORATORYCLIA [id number] [place] [id number] [place] Immature granulocytes (Bld) [#/Vol] 0.08 10*3/uL Normal <0.10 [facility] Comment on above: Order Comment: Speci men Type: BLOOD SPECIMENOrdering Facility: [facility] Address: [address] [place] [address] Performed By: #### 5 7021-8 ####[facility] LABORATORYCLIA [id number] [place] [address] [place] Immature granulocytes/100 WBC (Bld) 0.9 % Normal [facility] Comment on above: Order Comment: Speci men Type: BLOOD SPECIMENOrdering Facility: [facility] Address: [address] [place] [address] Performed By: #### 5 7021-8 ####[facility] LABORATORYCLIA [id number] [place] [id number] [place] Lymphocytes (Bld) [#/Vol] 3.59 10*3/uL Normal 1.00-4.00 [facility] Comment on above: Order Comment: Speci men Type: BLOOD SPECIMENOrdering Facility: [facility] Address: [address] [place] [address] Performed By: #### 5 7021-8 ####[facility] LABORATORYCLIA [id number] [place] [id number] [place] Lymphocytes/100 WBC (Bld) 40.5 % Normal [facility] Comment on above: Order Comment: Speci men Type: BLOOD SPECIMENOrdering Facility: [facility] Address: [address] [place] [address] Performed By: #### 5 7021-8 ####[facility] LABORATORYCLIA [id number] [address] MCH (RBC) [Entitic mass] 28.7 pg Normal 26.0-34.0 [facility] Comment on above: Order Comment: Speci men Type: BLOOD SPECIMENOrdering Facility: [facility] Address: [address] [place] [address] Performed By: #### 5 7021-8 ####[facility] LABORATORYCLIA [id number] [address] [place] MCHC (RBC) [Mass/Vol] 31.3 g/dL Normal 30.5-36.0 [facility] Comment on above: Order Comment: Speci men Type: BLOOD SPECIMENOrdering Facility: [facility] Address: [address] [place] [address] Performed By: #### 5 7021-8 ####[facility] LABORATORYCLIA [id number] [address] [place] MCV (RBC) [Entitic vol] 91.6 fL Normal 80.0-100.0 [facility] Comment on above: Order Comment: Speci men Type: BLOOD SPECIMENOrdering Facility: [facility] Address: [address] [place] [address] Performed By: #### 5 7021-8 ####[facility] LABORATORYCLIA [id number] [address] [place] Monocytes (Bld) [#/Vol] 0.81 10*3/uL Normal <0.87 [facility] Comment on above: Order Comment: Speci men Type: BLOOD SPECIMENOrdering Facility: [facility] Address: [address] [place] [address] Performed By: #### 5 7021-8 ####[facility] LABORATORYCLIA [id number] [address] [place] Monocytes/100 WBC (Bld) 9.1 % Normal [facility] Comment on above: Order Comment: Speci men Type: BLOOD SPECIMENOrdering Facility: [facility] Address: [address] [place] [address] Performed By: #### 5 7021-8 ####[facility] LABORATORYCLIA [id number] [place] [address] [place] Neutrophils (Bld) [#/Vol] 4.11 10*3/uL Normal 1.45-7.50 [facility] Comment on above: Order Comment: Speci men Type: BLOOD SPECIMENOrdering Facility: [facility] Address: [address] [place] [address] Performed By: #### 5 7021-8 ####[facility] LABORATORYCLIA [id number] [place] [address] [place] Neutrophils/100 WBC (Bld) 46.3 % Normal [facility] Comment on above: Order Comment: Speci men Type: BLOOD SPECIMENOrdering Facility: [facility] Address: [address] [place] [address] Performed By: #### 5 7021-8 ####[facility] LABORATORYCLIA [id number] [place] [address] [place] Nucleated RBC (Bld) [#/Vol] 10*3/uL Normal <0.01 [facility] Comment on above: Order Comment: Speci men Type: BLOOD SPECIMENOrdering Facility: [facility] Address: [address] [place] [address] Performed By: #### 5 7021-8 ####[facility] LABORATORYCLIA [id number] [place] [address] [place] Nucleated RBC/100 WBC (Bld) [Ratio] 0.0 /100 WBC Normal [facility] Comment on above: Order Comment: Speci men Type: BLOOD SPECIMENOrdering Facility: [facility] Address: [address] [place] [address] Performed By: #### 5 7021-8 ####[facility] LABORATORYCLIA [id number] [address] [place] Platelet mean volume (Bld) [Entitic vol] 10.7 fL Normal 9.0-12.7 [facility] Comment on above: Order Comment: Speci men Type: BLOOD SPECIMENOrdering Facility: [facility] Address: [address] [place] [address] Performed By: #### 5 7021-8 ####[facility] LABORATORYCLIA [id number] [place] [address] [place] Platelets (Bld) [#/Vol] 430 10*3/uL High 150-400 [facility] Comment on above: Order Comment: Speci men Type: BLOOD SPECIMENOrdering Facility: [facility] Address: [address] [place] [address] Performed By: #### 5 7021-8 ####[facility] LABORATORYCLIA [id number] [place] [address] [place] RBC (Bld) [#/Vol] 4.74 10*6/uL Normal 3.90-5.20 [facility] Comment on above: Order Comment: Speci men Type: BLOOD SPECIMENOrdering Facility: [facility] Address: [address] [place] [address] Performed By: #### 5 7021-8 ####[facility] LABORATORYCLIA [id number] [place] [id number] [place] WBC (Bld) [#/Vol] 8.87 10*3/uL Normal 3.70-11.00 [facility] Comment on above: Order Comment: Speci men Type: BLOOD SPECIMENOrdering Facility: [facility] Address: [address] [place] [address] Performed By: #### 5 7021-8 ####[facility] LABORATORYCLIA [id number] [address] [place] CNOVon 07-08-2024 CNOV Office Visit (FAMPWS ) ----- SANDRA SCHMITZ ([id number]) 1945 F Date Time Provider Department 07/08/24 2:00 PM MANDEEP HOUSER During your visit today, we recorded the following information about you: Pulse Blood pressure Weight 66/minute 110/70 83.5 kg Mandeep Houser DO 07/08/2024 2:50 PM Signed Director Of Curriculum local options Dr.Sleik Dr. 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 Normal [facility] Comprehensive metabolic 2000 panelon 07-08-2024 Albumin [Mass/Vol] 4.3 g/dL Normal 3.9-4.9 [facility] Comment on above: Order Comment: Speci men Type: BLOOD SPECIMENOrdering Facility: [facility] Address: [address] [place] [address] Performed By: #### 2 132-9, 07910-2 ####[facility] LABORATORYCLIA [id number] [address] [place] OF [facility] ALP [Catalytic activity/Vol] 82 U/L Normal 34-123 [facility] Comment on above: Order Comment: Speci men Type: BLOOD SPECIMENOrdering Facility: [facility] Address: [address] [place] [address] Performed By: #### 2 132-9, 45710-0 ####[facility] LABORATORYCLIA [id number] [address] [place] ALT With P-5'-P [Catalytic activity/Vol] 11 U/L Normal 7-38 [facility] Comment on above: Order Comment: Speci men Type: BLOOD SPECIMENOrdering Facility: [facility] Address: [address] [place] [address] Performed By: #### 2 132-9, 43505-5 ####[facility] LABORATORYCLIA [id number] [place] [address] [place] Anion gap [Moles/Vol] 12 mmol/L Normal 8-15 [facility] Comment on above: Order Comment: Speci men Type: BLOOD SPECIMENOrdering Facility: [facility] Address: [address] [place] [address] Performed By: #### 2 132-9, 90045-1 ####[facility] LABORATORYCLIA [id number] [place] [address] [place] AST With P-5'-P [Catalytic activity/Vol] 16 U/L Normal 13-35 [facility] Comment on above: Order Comment: Speci men Type: BLOOD SPECIMENOrdering Facility: [facility] Address: [address] [place] [address] Performed By: #### 2 132-9, 69817-1 ####[facility] LABORATORYCLIA [id number] [place] [address] [place] Bilirubin [Mass/Vol] 0.7 mg/dL Normal 0.2-1.3 [facility] Comment on above: Order Comment: Speci men Type: BLOOD SPECIMENOrdering Facility: [facility] Address: [address] [place] [address] Performed By: #### 2 132-9, 44675-4 ####[facility] LABORATORYCLIA [id number] [place] [address] [place] Calcium [Mass/Vol] 9.8 mg/dL Normal 8.5-10.2 [facility] Comment on above: Order Comment: Speci men Type: BLOOD SPECIMENOrdering Facility: [facility] Address: [address] [place] [address] Performed By: #### 2 132-9, 44688-5 ####[facility] LABORATORYCLIA [id number] [place] [address] [place] Chloride [Moles/Vol] 102 mmol/L Normal 98-107 [facility] Comment on above: Order Comment: Speci men Type: BLOOD SPECIMENOrdering Facility: [facility] Address: [address] [place] [address] Performed By: #### 2 132-9, 06010-2 ####[facility]lowLUIS ALFREDO [facility] LABORATORYCLIA [id number] [place] [address] [place] CO2 [Moles/Vol] 26 mmol/L Normal 22-30 [facility] Comment on above: Order Comment: Speci men Type: BLOOD SPECIMENOrdering Facility: [facility] Address: [address] [place] [address] Performed By: #### 2 132-9, ####[facility]lowROANE GENERAL HOSPITALIA [id number] [address] [facility] Creatinine [Mass/Vol] 0.85 mg/dL Normal 0.58-0.96 [facility] Comment on above: Order Comment: Speci men Type: BLOOD SPECIMENOrdering Facility: [facility] Address: [address] [place] [address] Performed By: #### 2 132-9, 67227-2 ####[facility]lowROANE GENERAL HOSPITALIA [id number] [address] Creatinine and Glomerular filtration rate.predicted panel (S/P/Bld) 71 mL/min/1.73m??? Normal >=60 [facility] Comment on above: Order Comment: Speci men Type: BLOOD SPECIMENOrdering Facility: [facility] Address: [address] [place] [address] Result Comment: Aaron mated Glomerular Filtration Rate [...] actual GFR. Performed By: #### 2 132-9, 89750-1 ####[facility] LABORATORYCLIA [id number] [place] [id number] [place] Glucose [Mass/Vol] 86 mg/dL Normal 74-99 [facility] Comment on above: Order Comment: Lenard men Type: BLOOD SPECIMENOrdering Facility: [facility] Address: [address] [place], [place] [address] Result Comment: The [place] Diabetes Association (ADA) provides guidance for cutoff [...] Standards of Medical Care in Diabetes 2016, [place] Diabetes Association. Diabetes Care. 2016.39(Suppl 1). Performed By: #### 2 132-9, 90676-8 ####[facility] LABORATORYCLIA [id number] [place] [id number] [place] Potassium [Moles/Vol] 4.9 mmol/L Normal 3.7-5.1 [facility] Comment on above: Order Comment: Lenard jesus Type: BLOOD SPECIMENOrdering Facility: [facility] Address: [address] [place], [place] [address] Performed By: #### 2 132-9, ####[facility] LABORATORYCLIA [id number] [place] [address] [place] Protein [Mass/Vol] 7.4 g/dL Normal 6.3-8.0 [facility] Comment on above: Order Comment: Lenard jesus Type: BLOOD SPECIMENOrdering Facility: [facility] Address: [address] [place], [place] [address] Performed By: #### 2 132-9, 83452-3 ####[facility] LABORATORYCLIA [id number] [place] [address] [place] Sodium [Moles/Vol] 140 mmol/L Normal 136-144 [facility] Comment on above: Order Comment: Speci men Type: BLOOD SPECIMENOrdering Facility: [facility] Address: [address] [place] [address] Performed By: #### 2 132-9, 26320-9 ####[facility] LABORATORYCLIA [id number] [place] [address] [place] Urea nitrogen [Mass/Vol] 23 mg/dL High 7-21 [facility] Comment on above: Order Comment: Speci men Type: BLOOD SPECIMENOrdering Facility: [facility] Address: [address] [place] [address] Performed By: #### 2 132-9, 45893-2 ####[facility] LABORATORYCLIA [id number] [place] [address] [place] Magnesium SerPl-mCncon 07-08 Magnesium [Mass/Vol] 2.0 mg/dL Normal 1.7-2.3 [facility] Comment on above: Order Comment: Speci men Type: BLOOD SPECIMENOrdering Facility: [facility] Address: [address] [place] [address] Performed By: #### 3 016-3, 91145-6, 41484-3, 7 ####[facility] LABORATORYCLIA [id number] [place] [address] [place] NT-proBNP SerPl-mCncon 07-08 Natriuretic peptide.B prohormone N-Terminal [Mass/Vol] 2199 pg/mL High <450 [facility] Comment on above: Order Comment: Speci men Type: BLOOD SPECIMENOrdering Facility: [facility] Address: [address] [place] [address] Performed By: #### 3 016-3, 39789-3, , 3023-11 ####[facility] LABORATORYCLIA [id number] [place] [address] [place] T4 Free SerPl-mCncon 07-08- 025 Free T4 [Mass/Vol] 1.8 ng/dL High 0.9-1.7 [facility] Comment on above: Order Comment: Speci men Type: BLOOD SPECIMENOrdering Facility: [facility] Address: [address] [place] [address] Performed By: #### 3 016-3, 18213-0, 96556-8, 3024-7 ####[facility] LABORATORYCLIA [id number] [place] [address] [place] TSH SerPl-aCncon 07-08-2024 TSH Qn 0.814 m[IU]/L Normal 0.270-4.200 [facility] Comment on above: Order Comment: Speci men Type: BLOOD SPECIMENOrdering Facility: [facility] Address: [address] [place] [address] Performed By: #### 3 016-3, 44953-7, 51033-7, 3024-7 ####[facility] LABORATORYCLIA [id number] [place] [address] [place] Urinalysis complete panel (U )on 07-08-2024 Bacteria LM.HPF (Urine sed) [#/Area] Negative Normal Negative [facility] Comment on above: Order Comment: Speci men Type: URINE SPECIMENOrdering Facility: [facility] Address: [address] [place] [address] Performed By: #### 2 4356-8 ####[facility] LABCLIA [id number] [place] [address] [place] Bilirubin Ql (U) Negative Normal Negative [facility] Comment on above: Order Comment: Speci men Type: URINE SPECIMENOrdering Facility: [facility] Address: [address] [place] [address] Performed By: #### 2 4356-8 ####[facility] LABCLIA [id number] [place] [address] [place] Clarity (Unsp spec) Clear Normal Clear [facility] Comment on above: Order Comment: Speci men Type: URINE SPECIMENOrdering Facility: [facility] Address: [address] [place] [address] Performed By: #### 2 4356-8 ####[facility] LABCLIA [id number] [address], [place] [address] [place] Color (U) Yellow Normal Yellow [facility] Comment on above: Order Comment: Speci men Type: URINE SPECIMENOrdering Facility: [facility] Address: [address] [place] [address] Performed By: #### 2 4356-8 ####[facility] LABIA [id number] [address], [place] [address] [place] Epithelial cells LM.HPF (Urine sed) [#/Area] Few Normal [facility] Comment on above: Order Comment: Speci men Type: URINE SPECIMENOrdering Facility: [facility] Address: [address] [place] [address] Performed By: #### 2 4356-8 ####[facility] LABIA [id number] [address], [facility] [place] Glucose Test strip (U) [Mass/Vol] Negative Normal Negative [facility] Comment on above: Order Comment: Speci men Type: URINE SPECIMENOrdering Facility: [facility] Address: [address] [place] [address] Performed By: #### 2 4356-8 ####[facility] LABIA [id number] [address], [facility] [place] Hemoglobin Ql (U) Negative Normal Negative [facility] Comment on above: Order Comment: Speci men Type: URINE SPECIMENOrdering Facility: [facility] Address: [address] [place] [address] Performed By: #### 2 4356-8 ####[facility] LABCLIA [id number] [address] [place] [address] [place] Hyaline casts (Urine sed) [#/Area] 0 /[LPF] Normal 0 /LPF [facility] Comment on above: Order Comment: Speci men Type: URINE SPECIMENOrdering Facility: [facility] Address: [address] [place] [address] Performed By: #### 2 4356-8 ####[facility] LABCLIA [id number] [facility] [address] [place] [address] [place] Ketones Ql (U) Negative Normal Negative [facility] Comment on above: Order Comment: Speci men Type: URINE SPECIMENOrdering Facility: [facility] Address: [address] [place] [address] Performed By: #### 2 4356-8 ####[facility] LABCLIA [id number] [address], [facility] [place] Leukocyte esterase Test strip Ql (U) Negative Normal Negative [facility] Comment on above: Order Comment: Speci men Type: URINE SPECIMENOrdering Facility: [facility] Address: [address] [place] [address] Performed By: #### 2 4356-8 ####[facility] LABCLIA [id number] [address], [facility] [place] Nitrite Ql (U) Negative Normal Negative [facility] Comment on above: Order Comment: Speci men Type: URINE SPECIMENOrdering Facility: [facility] Address: [address] [place] [address] Performed By: #### 2 4356-8 ####[facility] LABCLIA [id number] [address] [place] [address] [place] pH (U) 6.0 [pH] Normal <8.5 [facility] Comment on above: Order Comment: Speci men Type: URINE SPECIMENOrdering Facility: [facility] Address: [address] [place] [address] Performed By: #### 2 4356-8 ####[facility] LABCLIA [id number] [address] [place] [address] [place] Protein (U) [Mass/Vol] Negative Normal Negative [facility] Comment on above: Order Comment: Speci men Type: URINE SPECIMENOrdering Facility: [facility] Address: [address] [place] [address] Performed By: #### 2 4356-8 ####[facility] [id number] [place] [address] [place] RBC LM.HPF (Urine sed) [#/Area] 0-2 /HPF Normal 0-2 /HPF [facility] Comment on above: Order Comment: Speci men Type: URINE SPECIMENOrdering Facility: [facility] Address: [address] [place] [address] Performed By: #### 2 4356-8 ####[facility] [id number] [place] [address] [place] Specific gravity (U) [Rel density] 1.022 Normal 1.005-1.030 [facility] Comment on above: Order Comment: Speci men Type: URINE SPECIMENOrdering Facility: [facility] Address: [address] [place] [address] Performed By: #### 2 4356-8 ####[facility] [id number] [address] [place] Urobilinogen Ql (U) 0.2 EU/dL Normal 0.2-1.0 EU/dL [facility] Comment on above: Order Comment: Speci men Type: URINE SPECIMENOrdering Facility: [facility] Address: [address] [place] [address] Performed By: #### 2 4356-8 ####[facility] [id number] [place] [address] [place] WBC LM.HPF (Urine sed) [#/Area] 0-5 /HPF Normal 0-5 /HPF [facility] Comment on above: Order Comment: Speci men Type: URINE SPECIMENOrdering Facility: [facility] Address: [address] [place] [address] Performed By: #### 2 4356-8 ####[facility] LABCLIA [id number] [place] [address] [place] Vit B12 SerPl-mCncon 07-08- 025 Cobalamin (Vitamin B12) [Mass/Vol] pg/mL High 232-1245 [facility] Comment on above: Order Comment: Speci men Type: BLOOD SPECIMENOrdering Facility: [facility] Address: [address] [place] [address] Performed By: #### 2 132-9, 57132-2 ####[facility] LABORATORYCLIA [id number] [place] [id number] [place] XR CHEST 2V [...] and scoliosis. IMPRESSION: No acute radiographic abnormality. Cartographic Aide: PSCB Transcribe Date/Time: Jul 09 2024 11:46A Dictated by : PERLA ONEILL MD This examination was interpreted and the report reviewed and electronically signed by: PERLA ONEILL MD on Jul 09 2024 11:47AM EST [id number] Normal [facility] CNPPadmini 07-01-2024 CNPN Telephone (FAMPWS) ----- NADIRSANDRA ([id number]) 1945 F Date Time Provider Department 07/01/24 [...] right [M19.071] 08/02/2022 Coronary artery disease involving benton lopez*08/02/2022 Vitamin D deficiency [E55.9] 08/02/2022 Somatic [...] 07/13/2023 Ac (more content not included)... Normal [facility] CNOVon 06-20-2024 CNOV Office Visit ([facility]AMPWS ) ----- SANDRA SCHMITZ ([id number]) 1945 F Date Time Provider Department 06/20/24 [...] on chronic systolic CHF (congestive heart failure) ([facility]) 05/03/2020 Aspiration pneumonia ([facility]) 05/30/2020 Chest pain 05/03/2020 Chest pressure 01/23/2013 Chronic diastolic congestive heart failure ([facility]) 02/14/2021 Clostridium difficile diarrhea 09/28/2020 Complete uterovaginal prolapse Cystocele, midline Essential hypertension 06/14/2020 Homozygous Factor V Leiden mutation ([facility]) 05/03/2020 Hypothyroidism IBS (irritable bowel syndrome) [...] Right a (more content not included)... Normal [facility] CNCOon 06-06-2024 CNCO Letter Text Normal [facility] CNOVon 05-30-2024 CNOV Office Visit ([facility]AMPWS ) ----- SANDRA SCHMITZ ([id number]) 1945 F [place]* Date Time Provider [...] on chronic systolic CHF (congestive heart failure) ([facility]) 05/03/2020 Aspiration pneumonia ([facility]) 05/30/2020 Chest pain 05/03/2020 Chest pressure 01/23/2013 Chronic diastolic congestive heart failure ([facility]) 02/14/2021 Clostridium difficile diarrhea 09/28/2020 Complete uterovaginal prolapse Cystocele, midline Essential hypertension 06/14/2020 Homozygous Factor V Leiden mutation ([facility]) 05/03/2020 Hypothyroidism IBS (irritable bowel syndrome) [...] head, C3-6NRrSBr (more content not included)... Normal [facility] CNOVon 05-12-2024 CNOV Office Visit ([facility]AMPWS ) ----- SANDRA SCHMITZ ([id number]) 1945 F [place] Date Time Provider Department 05/12/24 3:20 PM [facility] today, we recorded [...] on chronic systolic CHF (congestive heart failure) ([facility]) 05/03/2020 Aspiration pneumonia ([facility]) 05/30/2020 Chest pain 05/03/2020 Chest pressure 01/23/2013 Chronic diastolic congestive heart failure ([facility]) 02/14/2021 Clostridium difficile diarrhea 09/28/2020 Complete uterovaginal prolapse Cystocele, midline Essential hypertension 06/14/2020 Homozygous Factor V Leiden mutation ([facility]) 05/03/2020 Hypothyroidism IBS (irritable bowel syndrome) [...] posterior T3-10ERrSBl (more content not included)... Normal [facility] CBC W Auto Differential pane l (Bld)on 04-22-2024 Basophils (Bld) [#/Vol] 0.11 10*3/uL High [facility] Basophils/100 WBC (Bld) 0.8 % [facility] Differential cell count method Nom (Bld) Auto [facility] Eosinophils (Bld) [#/Vol] 0.19 10*3/uL [facility] Eosinophils/100 WBC (Bld) 1.3 % [facility] Erythrocyte distribution width (RBC) [Ratio] 14.1 % 11.5 - 15.0 % [facility] Hematocrit (Bld) [Volume fraction] 41.0 % 36.0 - 46.0 % [facility] Hemoglobin (Bld) [Mass/Vol] 12.5 g/dL 11.5 - 15.5 g/dL [facility] Immature granulocytes (Bld) [#/Vol] 0.09 10*3/uL [facility] Immature granulocytes/100 WBC (Bld) 0.6 % [facility] Interpretation and review of laboratory results Abnormal [facility] Lymphocytes (Bld) [#/Vol] 4.47 10*3/uL High [facility] Lymphocytes/100 WBC (Bld) 31.0 % [facility] MCH (RBC) [Entitic mass] 28.0 pg 26.0 - 34.0 pg [facility] MCHC (RBC) [Mass/Vol] 30.5 g/dL 30.5 - 36.0 g/dL [facility] MCV (RBC) [Entitic vol] 91.7 fL 80.0 - 100.0 fL [facility] Monocytes (Bld) [#/Vol] 1.29 10*3/uL High NINF [facility] Monocytes/100 WBC (Bld) 8.9 % [facility] Neutrophils (Bld) [#/Vol] 8.29 10*3/uL High [facility] Neutrophils/100 WBC (Bld) 57.4 % [facility] Nucleated RBC (Bld) [#/Vol] NINF [facility] Nucleated RBC/100 WBC (Bld) [Ratio] 0.0 % /100 WBC [facility] Platelet mean volume (Bld) [Entitic vol] 10.4 fL 9.0 - 12.7 fL [facility] Platelets (Bld) [#/Vol] 317 10*3/uL [facility] RBC (Bld) [#/Vol] 4.47 10*6/uL 3.90 - 5.2 0 m/uL [facility] WBC (Bld) [#/Vol] 14.44 10*3/uL [facility] Basophils (Bld) [#/Vol] 0.11 10*3/uL High <0.11 [facility] Comment on above: Order Comment: Speci men Type: BLOOD SPECIMENOrdering Facility: [facility] Address: [address] [place] [address] Performed By: #### 5 7021-8 ####[facility] LABCLIA [id number] [place] [address] [place] Basophils/100 WBC (Bld) 0.8 % Normal [facility] Comment on above: Order Comment: Speci men Type: BLOOD SPECIMENOrdering Facility: [facility] Address: [address] [place] [address] Performed By: #### 5 7021-8 ####[facility] LABCLIA [id number] [place] [address] [place] Differential cell count method Nom (Bld) Auto Normal [facility] Comment on above: Order Comment: Speci men Type: BLOOD SPECIMENOrdering Facility: [facility] Address: [address] [place] [address] Performed By: #### 5 7021-8 ####[facility] LABCLIA [id number] [place] [address] [place] Eosinophils (Bld) [#/Vol] 0.19 10*3/uL Normal <0.46 [facility] Comment on above: Order Comment: Speci men Type: BLOOD SPECIMENOrdering Facility: [facility] Address: [address] [place] [address] Performed By: #### 5 7021-8 ####[facility] LABCLIA [id number] [place] [address] [place] Eosinophils/100 WBC (Bld) 1.3 % Normal [facility] Comment on above: Order Comment: Speci men Type: BLOOD SPECIMENOrdering Facility: [facility] Address: [address] [place] [address] Performed By: #### 5 7021-8 ####[facility] LABCLIA [id number] [place] [address] [place] Erythrocyte distribution width (RBC) [Ratio] 14.1 % Normal 11.5-15.0 [facility] Comment on above: Order Comment: Speci men Type: BLOOD SPECIMENOrdering Facility: [facility] Address: [address] [place] [address] Performed By: #### 5 7021-8 ####[facility] LABCLIA [id number] [place] [address] [place] Hematocrit (Bld) [Volume fraction] 41.0 % Normal 36.0-46.0 [facility] Comment on above: Order Comment: Speci men Type: BLOOD SPECIMENOrdering Facility: [facility] Address: [address] [place] [address] Performed By: #### 5 7021-8 ####[facility] LABCLIA [id number] [place] [address] [place] Hemoglobin (Bld) [Mass/Vol] 12.5 g/dL Normal 11.5-15.5 [facility] Comment on above: Order Comment: Speci men Type: BLOOD SPECIMENOrdering Facility: [facility] Address: [address] [place] [address] Performed By: #### 5 7021-8 ####[facility] LABCLIA [id number] [place] [address] [place] Immature granulocytes (Bld) [#/Vol] 0.09 10*3/uL Normal <0.10 [facility] Comment on above: Order Comment: Speci men Type: BLOOD SPECIMENOrdering Facility: [facility] Address: [address] [place] [address] Performed By: #### 5 7021-8 ####[facility] LABCLIA [id number] [place] [address] [place] Immature granulocytes/100 WBC (Bld) 0.6 % Normal [facility] Comment on above: Order Comment: Speci men Type: BLOOD SPECIMENOrdering Facility: [facility] Address: [address] [place] [address] Performed By: #### 5 7021-8 ####[facility] LABCLIA [id number] [place] [address] [place] Lymphocytes (Bld) [#/Vol] 4.47 10*3/uL High 1.00-4.00 [facility] Comment on above: Order Comment: Speci men Type: BLOOD SPECIMENOrdering Facility: [facility] Address: [address] [place] [address] Performed By: #### 5 7021-8 ####[facility] LABIA [id number] [place] [address] [place] Lymphocytes/100 WBC (Bld) 31.0 % Normal [facility] Comment on above: Order Comment: Speci men Type: BLOOD SPECIMENOrdering Facility: [facility] Address: [address] [place] [address] Performed By: #### 5 7021-8 ####[facility] LABIA [id number] [place] [address] [place] MCH (RBC) [Entitic mass] 28.0 pg Normal 26.0-34.0 [facility] Comment on above: Order Comment: Speci men Type: BLOOD SPECIMENOrdering Facility: [facility] Address: [address] [place] [address] Performed By: #### 5 7021-8 ####[facility] LABIA [id number] [place] [address] [place] MCHC (RBC) [Mass/Vol] 30.5 g/dL Normal 30.5-36.0 [facility] Comment on above: Order Comment: Speci men Type: BLOOD SPECIMENOrdering Facility: [facility] Address: [address] [place] [address] Performed By: #### 5 7021-8 ####[facility] LABIA [id number] [place] [address] [place] MCV (RBC) [Entitic vol] 91.7 fL Normal 80.0-100.0 [facility] Comment on above: Order Comment: Speci men Type: BLOOD SPECIMENOrdering Facility: [facility] Address: [address] [place] [address] Performed By: #### 5 7021-8 ####[facility] LABCLIA [id number] [place] [address] [place] Monocytes (Bld) [#/Vol] 1.29 10*3/uL High <0.87 [facility] Comment on above: Order Comment: Speci men Type: BLOOD SPECIMENOrdering Facility: [facility] Address: [address] [place] [address] Performed By: #### 5 7021-8 ####[facility] LABCLIA [id number] [place] [address] [place] Monocytes/100 WBC (Bld) 8.9 % Normal [facility] Comment on above: Order Comment: Speci men Type: BLOOD SPECIMENOrdering Facility: [facility] Address: [address] [place] [address] Performed By: #### 5 7021-8 ####[facility] LABCLIA [id number] [place] [address] [place] Neutrophils (Bld) [#/Vol] 8.29 10*3/uL High 1.45-7.50 [facility] Comment on above: Order Comment: Speci men Type: BLOOD SPECIMENOrdering Facility: [facility] Address: [address] [place] [address] Performed By: #### 5 7021-8 ####[facility] LABCLIA [id number] [place] [address] [place] Neutrophils/100 WBC (Bld) 57.4 % Normal [facility] Comment on above: Order Comment: Speci men Type: BLOOD SPECIMENOrdering Facility: [facility] Address: [address] [place] [address] Performed By: #### 5 7021-8 ####[facility] LABCLIA [id number] [place] [address] [place] Nucleated RBC (Bld) [#/Vol] 10*3/uL Normal <0.01 [facility] Comment on above: Order Comment: Speci men Type: BLOOD SPECIMENOrdering Facility: [facility] Address: [address] [place] [address] Performed By: #### 5 7021-8 ####[facility] LABCLIA [id number] [place] [address] [place] Nucleated RBC/100 WBC (Bld) [Ratio] 0.0 /100 WBC Normal [facility] Comment on above: Order Comment: Speci men Type: BLOOD SPECIMENOrdering Facility: [facility] Address: [address] [place] [address] Performed By: #### 5 7021-8 ####[facility] LABCLIA [id number] [place] [address] [place] Platelet mean volume (Bld) [Entitic vol] 10.4 fL Normal 9.0-12.7 [facility] Comment on above: Order Comment: Speci men Type: BLOOD SPECIMENOrdering Facility: [facility] Address: [address] [place] [address] Performed By: #### 5 7021-8 ####[facility] LABCLIA [id number] [place] [address] [place] Platelets (Bld) [#/Vol] 317 10*3/uL Normal 150-400 [facility] Comment on above: Order Comment: Speci men Type: BLOOD SPECIMENOrdering Facility: [facility] Address: [address] [place] [address] Performed By: #### 5 7021-8 ####[facility] LABCLIA [id number] [place] [address] [place] RBC (Bld) [#/Vol] 4.47 10*6/uL Normal 3.90-5.20 [facility] Comment on above: Order Comment: Speci men Type: BLOOD SPECIMENOrdering Facility: [facility] Address: [address] [place] [address] Performed By: #### 5 7021-8 ####[facility] LABCLIA [id number] [place] [id number] [place] WBC (Bld) [#/Vol] 14.44 10*3/uL High 3.70-11.00 [facility] Comment on above: Order Comment: Speci men Type: BLOOD SPECIMENOrdering Facility: [facility] Address: [address] [place] [address] Performed By: #### 5 7021-8 ####[facility] LABCLIA [id number] [place] [id number] [place] CNOVon 04-22-2024 [facility] ----- SANDRA SCHMITZ ([id number]) 1945 F [place] Date Time Provider Department 04/22/24 2:00 PM [facility] During [facility] visit today, we recorded [...] on chronic systolic CHF (congestive heart failure) ([facility]) 05/03/2020 Aspiration pneumonia ([facility]) 05/30/2020 Chest pain 05/03/2020 Chest pressure 01/23/2013 Chronic diastolic congestive heart failure ([facility]) 02/14/2021 Clostridium difficile diarrhea 09/28/2020 Complete uterovaginal prolapse Cystocele, midline Essential hypertension 06/14/2020 Homozygous Factor V Leiden mutation ([facility]) 05/03/2020 Hypothyroidism IBS (irritable bowel syndrome) [...] intact b (more content not included)... Normal [facility] CRP SerPl-ncon 04-22-2024 CRP [Mass/Vol] 5.4 mg/dL High <0.9 [facility] [facility] Comment on above: Order Comment: Speci men Type: BLOOD SPECIMENOrdering Facility: [facility] Address: [address] [place], [place] [address] Performed By: #### 3 040-3, 1987-09 ####[facility] LABCLIA [id number] [address] [address] [place] Comprehensive metabolic 2000 panelon 04-22-2024 Albumin [Mass/Vol] 4.0 g/dL Normal 3.9-4.9 [facility] Comment on above: Order Comment: Speci men Type: BLOOD SPECIMENOrdering Facility: [facility] Address: [address] [place] [address] Performed By: #### 3 016-3, 3024-7, 305-0, 98531-6 ####[facility] LABCLIA [id number] [place] [address] [place] ALP [Catalytic activity/Vol] 76 U/L Normal 34-123 [facility] Comment on above: Order Comment: Speci men Type: BLOOD SPECIMENOrdering Facility: [facility] Address: [address] [place] [address] Performed By: #### 3 016-3, 302-7, 305-0, 78981-9 ####[facility] LABCLIA [id number] [place] [address] [place] ALT [Catalytic activity/Vol] 8 U/L Normal 7-38 [facility] Comment on above: Order Comment: Speci men Type: BLOOD SPECIMENOrdering Facility: [facility] Address: [address] [place] [address] Performed By: #### 3 016-3, 3024-7, 305-0, 67159-1 ####[facility] LABCLIA [id number] [place] [id number] [place] Anion gap [Moles/Vol] 11 mmol/L Normal 8-15 [facility] Comment on above: Order Comment: Speci men Type: BLOOD SPECIMENOrdering Facility: [facility] Address: [address] [place] [address] Performed By: #### 3 016-3, 3024-7, 305-0, 16361-5 ####[facility] LABCLIA [id number] [place] [address] [place] AST [Catalytic activity/Vol] 14 U/L Normal 13-35 [facility] Comment on above: Order Comment: Speci men Type: BLOOD SPECIMENOrdering Facility: [facility] Address: [address] [place] [address] Performed By: #### 3 016-3, 3024-7, 305-0, 61321-4 ####[facility] LABCLIA [id number] [place] [address] [place] Bilirubin [Mass/Vol] 0.8 mg/dL Normal 0.2-1.3 [facility] Comment on above: Order Comment: Speci men Type: BLOOD SPECIMENOrdering Facility: [facility] Address: [address] [place] [address] Performed By: #### 3 016-3, 3024-7, 3050-0, 85042-3 ####[facility] LABIA [id number] [place] [address] [place] Calcium [Mass/Vol] 9.4 mg/dL Normal 8.5-10.2 [facility] Comment on above: Order Comment: Speci men Type: BLOOD SPECIMENOrdering Facility: [facility] Address: [address] [place] [address] Performed By: #### 3 016-3, 3024-7, 305-0, 95130-1 ####[facility] LABIA [id number] [place] [address] [place] Chloride [Moles/Vol] 103 mmol/L Normal 98-107 [facility] Comment on above: Order Comment: Speci men Type: BLOOD SPECIMENOrdering Facility: [facility] Address: [address] [place] [address] Performed By: #### 3 016-3, 3024-7, 305-0, 56137-8 ####[facility] LABCLIA [id number] [place] [address] [place] CO2 [Moles/Vol] 27 mmol/L Normal 22-30 [facility] Comment on above: Order Comment: Speci men Type: BLOOD SPECIMENOrdering Facility: [facility] Address: [address] [place] [address] Performed By: #### 3 016-3, 3024-7, 305-0, 49185-0 ####[facility] LABIA [id number] [place] [address] [place] Creatinine [Mass/Vol] 0.97 mg/dL High 0.58-0.96 [facility] Comment on above: Order Comment: Speci men Type: BLOOD SPECIMENOrdering Facility: [facility] Address: [address] [place] [address] Performed By: #### 3 016-3, 3024-7, 305-0, 35729-8 ####[facility] [id number] [place] [address] [place] Creatinine and Glomerular filtration rate.predicted panel (S/P/Bld) 60 mL/min/1.73m??? Normal >=60 [facility] Comment on above: Order Comment: Speci men Type: BLOOD SPECIMENOrdering Facility: [facility] Address: [address] [place] [address] Result Comment: Aaron mated Glomerular Filtration Rate [...] Performed By: #### 3 016-3, 3024-7, 305-0, 68982-4 ####[facility] LABIA [id number] [place] [address] [place] Glucose [Mass/Vol] 90 mg/dL Normal 74-99 [facility] Comment on above: Order Comment: Speci men Type: BLOOD SPECIMENOrdering Facility: [facility] Address: [address] [place] [address] Result Comment: The [place] Diabetes Association (ADA) provides guidance for cutoff [...] Standards of Medical Care in Diabetes 2016, [place] Diabetes Association. Diabetes Care. 2016.39(Suppl 1). Performed By: #### 3 016-3, 3024-7, 305-0, 15204-4 ####[facility] LABCLIA [id number] [place] [address] [place] Potassium [Moles/Vol] 4.1 mmol/L Normal 3.7-5.1 [facility] Comment on above: Order Comment: Lenard jesus Type: BLOOD SPECIMENOrdering Facility: [facility] Address: [address] [place] [address] Performed By: #### 3 016-3, 3024-7, 305-0, 88701-5 ####[facility] LABCLIA [id number] [place] [address] [place] Protein [Mass/Vol] 7.4 g/dL Normal 6.3-8.0 [facility] Comment on above: Order Comment: Ernestinei men Type: BLOOD SPECIMENOrdering Facility: [facility] Address: [address] [place] [address] Performed By: #### 3 016-3, 3024-7, 305-0, 92950-2 ####[facility] LABCLIA [id number] [place] [address] [place] Sodium [Moles/Vol] 141 mmol/L Normal 136-144 [facility] Comment on above: Order Comment: Speci men Type: BLOOD SPECIMENOrdering Facility: [facility] Address: [address] [place] [address] Performed By: #### 3 016-3, 3024-7, 305-0, 46265-7 ####[facility] LABCLIA [id number] [place] [address] [place] Urea nitrogen [Mass/Vol] 19 mg/dL Normal 7-21 [facility] Comment on above: Order Comment: Speci men Type: BLOOD SPECIMENOrdering Facility: [facility] Address: [address] [place] [address] Performed By: #### 3 016-3, 3024-7, 305-0, 94901-1 ####[facility] LABCLIA [id number] [place] [address] [place] Lipase SerPl-cCncon 04-22-20 24 Lipase [Catalytic activity/Vol] 25 U/L Normal 16-61 [facility] Comment on above: Order Comment: Speci men Type: BLOOD SPECIMENOrdering Facility: [facility] Address: [address] [place] [address] Performed By: #### 3 040-3, 1987-09 ####[facility] LABCLIA [id number] [place] [address] [place] T3Free SerPl-mCncon 04-22-20 24 Free T3 [Mass/Vol] 2.1 pg/mL Low 2.3-4.1 [facility] Comment on above: Order Comment: Speci men Type: BLOOD SPECIMENOrdering Facility: [facility] Address: [address] [place] [address] Performed By: #### 3 016-3, 3024-7, 305-0, 85892-6 ####[facility] LABCLIA [id number] [place] [id number] [place] T4 Free SerPl-mCncon 024 Free T4 [Mass/Vol] 1.6 ng/dL Normal 0.9-1.7 [facility] Comment on above: Order Comment: Speci men Type: BLOOD SPECIMENOrdering Facility: [facility] Address: [address] [place] [address] Performed By: #### 3 016-3, 3024-7, 3051-0, 89652-0 ####[facility] LABIA [id number] [place] [address] [place] TSH SerPl-aCncon 04-22-2024 TSH Qn 0.233 m[IU]/L Low 0.270-4.200 [facility] Comment on above: Order Comment: Speci men Type: BLOOD SPECIMENOrdering Facility: [facility] Address: [address] [place] [address] Performed By: #### 3 016-3, 3024-7, 3051-0, 84557-1 ####[facility] [id number] [place] [address] [place] UA DIP, URINE (POC)on 2023 BILIRUBIN UA (POCT) Negative Negative [facility] CLARITY UA (POCT) [facility] COLOR UA (POCT) Yellow [facility] GLUCOSE UA (POCT) Negative Negative mg/dL [facility] Hemoglobin Ql (U) Negative Negative [facility] KETONE UA (POCT) Negative Negative mg/dL [facility] LEUKOCYTES UA (POCT) Negative Negative [facility] NITRITE UA (POCT) Negative Negative [facility] PH UA (POCT) 6.0 4.5 - 8.0 [facility] Protein Ql (U) Negative Negative mg/dL [facility] SPECIFIC GRAVITY UA (POCT) 1.015 1.005 - 1.030 [facility] UROBILINOGEN UA (POCT) 0.2 Jeanette l E.U./dL [facility] Location:[facility], [address], [place], [address] [facility] POINT OF CARE [facility] 12 Lead EKGon 03-27-2024 12 Lead EKG [facility] Cardiovascular Services [address] [place] [address] 12 Lead EKG 03/27/24 0108 MR#: [id number] Acct: [id number] Name: SANDRA SCHMITZ Rep #: [id number] : 1945 78 From: Yousuf Parker MD [...] ECG Confirmed by TEO BRYAN, MONICA ([id number]), tape editor SINCERE HINSON ([id number]) on 03/27/2024 1:51:10 PM Referred By: Confirmed By: MONICA PARKER MD 03/27/24 1351 Date Yousuf Parker MD CC: Dr. Mandeep Houser DO; Parker Nunez DO Signed Normal [facility] Abdomen/Pelvis W IV Cont ONL Yon 03-27-2024 Abdomen/Pelvis W IV Cont ONLY [facility] Imaging Services [address] [place] [address] Abdomen/Pelvis W IV Cont ONLY MR#: [id number] Acct: [id number] Name: SANDRA SCHMITZ Rep #: [id number] : 1945 F 78 From: Lacy Virk PCP: Dr. Mandeep Houser DO Status: REG ER Study: Abdomen/Pelvis W IV Cont ONLY Date of Exam: Exam# [id number] Ordering Dr: Parker Nunez DO [id number] EXAM: CT Abdomen And Pelvis W/ Contrast [...] Dr. Mandeep Houser DO; Parker Nunez DO Cartographic Aide: Signed Normal [facility] BNP,B-Type NATRIURETIC PEPTI Lizeth 03-27-2024 Natriuretic peptide B (Bld) [Mass/Vol] 268.9 pg/mL High 0-100 [facility] Comment on above: Performed By: #### L 501.5200, L100.0100, L500.3400, L500.2500, L300.8000, L503.6620, L501.2450 #### [facility] [address] [place], [address] Basic Metabolic Profile (BMP )on 03-27-2024 BUN/CRE 30.8 RATIO High 10-20 [facility] Comment on above: Performed By: #### L 501.5200, L100.0100, L500.3400, L500.2500, L300.8000, L503.6620, L501.2450 #### [facility] [address] [place], [address] CA,Total 9.1 mg/dL Normal 8.5-10.1 [facility] Comment on above: Performed By: #### L 501.5200, L100.0100, L500.3400, L500.2500, L300.8000, L503.6620, L501.2450 #### [facility] [address] [place], [address] Chloride [Moles/Vol] 105 mmol/L Normal 98-107 [facility] Comment on above: Performed By: #### L 501.5200, L100.0100, L500.3400, L500.2500, L300.8000, L503.6620, L501.2450 #### [facility] [address] [place], [address] CO2 [Moles/Vol] 28.0 mmol/L Normal 21.0-32.0 [facility] Comment on above: Performed By: #### L 501.5200, L100.0100, L500.3400, L500.2500, L300.8000, L503.6620, L501.2450 #### [facility] [address] [place], [address] Creatinine [Mass/Vol] 1.07 mg/dL High 0.55-1.02 [facility] Comment on above: Result Comment: The validity of the calculated GFR GFRAA in patients over 70 years has not been determined. Clinical correlation is essential. Performed By: #### L 501.5200, L100.0100, L500.3400, L500.2500, L300.8000, L503.6620, L501.2450 #### [facility] [address] [place], [address] ECRCL 46.99 ml/min Normal [facility] Comment on above: Performed By: #### L 501.5200, L100.0100, L500.3400, L500.2500, L300.8000, L503.6620, L501.2450 #### [facility] [address] [place], [address] EST GFR - AA 64 mL/min Normal >60 [facility] Comment on above: Result Comment: Afri can [place] GFR Calc Performed By: #### L 501.5200, L100.0100, L500.3400, L500.2500, L300.8000, L503.6620, L501.2450 #### [facility] [address] [place], [address] GAP 6 Normal 5-15 [facility] Comment on above: Performed By: #### L 501.5200, L100.0100, L500.3400, L500.2500, L300.8000, L503.6620, L501.2450 #### [facility] [address] [place], [address] GFR/1.73 sq M.predicted among non-blacks MDRD (S/P/Bld) [Vol rate/Area] 53 mL/min/{1.73_m2} Low >60 [facility] Comment on above: Result Comment: Non- GFR Calc Performed By: #### L 501.5200, L100.0100, L500.3400, L500.2500, L300.8000, L503.6620, L501.2450 #### [facility] [address] [place], [address] Glucose [Mass/Vol] 103 mg/dL Normal 74-106 [facility] Comment on above: Result Comment: Fast ing Glucose result from 100 to 125 mg/dL suggests IMPAIRED HOMEOSTASIS per A.D.A. criteria. Performed By: #### L 501.5200, L100.0100, L500.3400, L500.2500, L300.8000, L503.6620, L501.2450 #### [facility] [address] [place], [address] Potassium [Moles/Vol] 3.8 mmol/L Normal 3.5-5.1 [facility] Comment on above: Performed By: #### L 501.5200, L100.0100, L500.3400, L500.2500, L300.8000, L503.6620, L501.2450 #### [facility] [address] [place], [address] Sodium [Moles/Vol] 139 mmol/L Normal 136-145 [facility] Comment on above: Performed By: #### L 501.5200, L100.0100, L500.3400, L500.2500, L300.8000, L503.6620, L501.2450 #### [facility] [address] [place], [address] Urea nitrogen [Mass/Vol] 33 mg/dL High 7-18 [facility] Comment on above: Performed By: #### L 501.5200, L100.0100, L500.3400, L500.2500, L300.8000, L503.6620, L501.2450 #### [facility] [address] [place], [address] CBC W/Diff, Automatedon 03-14 Absolute Lymph 3.11 X10 3/uL Normal 0.83-4.51 [facility] Comment on above: Performed By: #### L 501.5200, L100.0100, L500.3400, L500.2500, L300.8000, L503.6620, L501.2450 #### [facility] [address] [place], [address] Absolute Neut 8.8 X10 3/uL High 2.0-7.7 [facility] Comment on above: Performed By: #### L 501.5200, L100.0100, L500.3400, L500.2500, L300.8000, L503.6620, L501.2450 #### [facility] [address] [place], [address] Basophils/100 WBC (Bld) 0.9 % Normal 0-1 [facility] Comment on above: Performed By: #### L 501.5200, L100.0100, L500.3400, L500.2500, L300.8000, L503.6620, L501.2450 #### [facility] [address] [place], [address] Eosinophils/100 WBC (Bld) 2.3 % Normal 0-5 [facility] Comment on above: Performed By: #### L 501.5200, L100.0100, L500.3400, L500.2500, L300.8000, L503.6620, L501.2450 #### [facility] [address] [place], [address] Erythrocyte distribution width (RBC) [Ratio] 14.0 % Normal 11.6-14.6 [facility] Comment on above: Performed By: #### L 501.5200, L100.0100, L500.3400, L500.2500, L300.8000, L503.6620, L501.2450 #### [facility] [address] [place], [address] Hematocrit (Bld) [Volume fraction] 43.6 % Normal 37-47 [facility] Comment on above: Performed By: #### L 501.5200, L100.0100, L500.3400, L500.2500, L300.8000, L503.6620, L501.2450 #### [facility] [address] [place], [address] Hemoglobin (Bld) [Mass/Vol] 13.7 g/dL Normal 12.0-15.0 [facility] Comment on above: Performed By: #### L 501.5200, L100.0100, L500.3400, L500.2500, L300.8000, L503.6620, L501.2450 #### [facility] [address] [place], [address] IG% 1.100 High 0.0-0.9 [facility] Comment on above: Result Comment: IG% - Immature Granulocytes (promyelocytes, myelocytes and metamyelocytes) > 1% indicates that a LEFT SHIFT is Present. Performed By: #### L 501.5200, L100.0100, L500.3400, L500.2500, L300.8000, L503.6620, L501.2450 #### [facility] [address] [place], [address] Lymphocytes/100 WBC (Bld) 24.2 % Normal 19-41 [facility] Comment on above: Performed By: #### L 501.5200, L100.0100, L500.3400, L500.2500, L300.8000, L503.6620, L501.2450 #### [facility] [address] [place], [address] MCH (RBC) [Entitic mass] 28.9 pg Normal 27.0-32.0 [facility] Comment on above: Performed By: #### L 501.5200, L100.0100, L500.3400, L500.2500, L300.8000, L503.6620, L501.2450 #### [facility] [address] [place], [address] MCHC (RBC) [Mass/Vol] 31.4 g/dL Low 32-36 [facility] Comment on above: Performed By: #### L 501.5200, L100.0100, L500.3400, L500.2500, L300.8000, L503.6620, L501.2450 #### [facility] [address] [place], [address] MCV (RBC) [Entitic vol] 92.0 fL Normal 81-99 [facility] Comment on above: Performed By: #### L 501.5200, L100.0100, L500.3400, L500.2500, L300.8000, L503.6620, L501.2450 #### [facility] [address] [place], [address] Monocytes/100 WBC (Bld) 2.7 % Normal 0-10 [facility] Comment on above: Performed By: #### L 501.5200, L100.0100, L500.3400, L500.2500, L300.8000, L503.6620, L501.2450 #### [facility] [address] [place], [address] Neutrophils/100 WBC (Bld) 68.8 % Normal 47-70 [facility] Comment on above: Performed By: #### L 501.5200, L100.0100, L500.3400, L500.2500, L300.8000, L503.6620, L501.2450 #### [facility] [address] [place], [address] Nucleated RBC (Bld) [#/Vol] 0 10*3/uL Normal 0-5 [facility] Comment on above: Performed By: #### L 501.5200, L100.0100, L500.3400, L500.2500, L300.8000, L503.6620, L501.2450 #### [facility] [address] [place], [address] Platelet mean volume (Bld) [Entitic vol] 10.5 fL Normal 6.2-12.0 [facility] Comment on above: Performed By: #### L 501.5200, L100.0100, L500.3400, L500.2500, L300.8000, L503.6620, L501.2450 #### [facility] [address] [place], [address] Platelets (Bld) [#/Vol] 333 10*3/uL Normal 150-450 [facility] Comment on above: Performed By: #### L 501.5200, L100.0100, L500.3400, L500.2500, L300.8000, L503.6620, L501.2450 #### [facility] [address] [place], [address] RBC (Bld) [#/Vol] 4.74 10*6/uL Normal 4.2-5.4 [facility] Comment on above: Performed By: #### L 501.5200, L100.0100, L500.3400, L500.2500, L300.8000, L503.6620, L501.2450 #### [facility] [address] [place], [address] RDW SD 47.4 fl High 35.1-43.9 [facility] Comment on above: Performed By: #### L 501.5200, L100.0100, L500.3400, L500.2500, L300.8000, L503.6620, L501.2450 #### [facility] [address] [place], [address] WBC (Bld) [#/Vol] 12.8 10*3/uL High 4.4-11.0 [facility] Comment on above: Performed By: #### L 501.5200, L100.0100, L500.3400, L500.2500, L300.8000, L503.6620, L501.2450 #### [facility] [address] [place], [address] Chest PA and Lateralon 03-27 Chest PA and Lateral [facility] Imaging Services [address] [place] [place] [address] Chest PA and Lateral MR#: [id number] Acct: [id number] Name: SANDRA SCHMITZ Rep #: [id number] : 1945 F 78 From: Lacy Virk PCP: Dr. Mandeep Houser DO Status: [facility] Study: Chest PA and Lateral Date of Exam: 03/27/24 Exam# [id number] Ordering Dr: Parker Nunez DO [id number] INDICATION: dyspnea EXAMINATION/TECHNIQUE: X-RAY - XR Chest [...] Dr. Mandeep Houser DO; Parker Nunez DO Cartographic Aide: Signed Normal [facility] D-Dimer Quantitative (DVT/PE )on 03-27-2024 D-DIMER QUANT 0.57 FEU/ug/m Invalid Interpretation Code 0.27-0.49 [facility] Comment on above: Result Comment: D-Di rosa elena ELEVATED (>0.49): Additional studies and clinical assessments are indicated to conclude diagnosis of: Deep Vein Thrombosis (DVT) or Pulmonary Embolism (PE) CRITICAL VALUE CALLED TO MMARTIAN 03/27/24 0155 Cristhian Aguirre. RESULTS READ BACK BY SAME. Performed By: #### L 501.5200, L100.0100, L500.3400, L500.2500, L300.8000, L503.6620, L501.2450 #### [facility] [address] [facility] [place], [address] Emergency Department Summary on 03-27-2024 Emergency Department Summary [facility] Medical Records Department [address] [place] [address] Emergency Department Summary 03/27/24 MR#: [id number] Acct: [id number] Name: SANDRA SCHMITZ Rep #: [id number] : 1945 78 From: Parker Nunez DO [...] called to bring her in for evaluation [facility] Medical History (Updated 03/27/24 [...] 18 Res (more content not included)... Normal [facility] Lipaseon 03-27-2024 Lipase [Catalytic activity/Vol] 51 U/L Normal 13-75 [facility] Comment on above: Result Comment: Alva wiggins note: LIPASE revised reference range effective 22. New Lipase methodology. Expected to produce lower values than the previous assay method. NEW Reference Range: 13 - 75 U/L Performed By: #### L 501.5200, L100.0100, L500.3400, L500.2500, L300.8000, L503.6620, L501.2450 #### [facility] [address] [place], [address] Liver Profileon 03-27-2024 Albumin [Mass/Vol] 3.7 g/dL Normal 3.2-5.0 [facility] Comment on above: Performed By: #### L 501.5200, L100.0100, L500.3400, L500.2500, L300.8000, L503.6620, L501.2450 #### [facility] [facility] [address] [place], [address] ALK P 78 U/L Normal 45-117 [facility] Comment on above: Performed By: #### L 501.5200, L100.0100, L500.3400, L500.2500, L300.8000, L503.6620, L501.2450 #### [facility] [address] [place], [address] ALT [Catalytic activity/Vol] 16 U/L Normal 13-56 [facility] Comment on above: Performed By: #### L 501.5200, L100.0100, L500.3400, L500.2500, L300.8000, L503.6620, L501.2450 #### [facility] [address] [place], [address] AST [Catalytic activity/Vol] 18 U/L Normal 15-37 [facility] Comment on above: Performed By: #### L 501.5200, L100.0100, L500.3400, L500.2500, L300.8000, L503.6620, L501.2450 #### [facility] [address] [place], [address] Bilirubin [Mass/Vol] 0.40 mg/dL Normal 0.20-1.00 [facility] Comment on above: Result Comment: For patients on eltrombopag therapy, use of Dimension [place] TBIL is not recommended. Performed By: #### L 501.5200, L100.0100, L500.3400, L500.2500, L300.8000, L503.6620, L501.2450 #### [facility] [address] [place], [address] Bilirubin.direct [Mass/Vol] 0.13 mg/dL Normal 0.00-0.30 [facility] Comment on above: Performed By: #### L 501.5200, L100.0100, L500.3400, L500.2500, L300.8000, L503.6620, L501.2450 #### [facility] [address] [place], [address] Globulin (S) [Mass/Vol] 4.5 g/dL High 2.2-4.2 [facility] Comment on above: Performed By: #### L 501.5200, L100.0100, L500.3400, L500.2500, L300.8000, L503.6620, L501.2450 #### [facility] [address] [place], [address] T PROT 8.2 g/dL Normal 6.4-8.2 [facility] Comment on above: Performed By: #### L 501.5200, L100.0100, L500.3400, L500.2500, L300.8000, L503.6620, L501.2450 #### [facility] [address] [place], [address] M100.678on 03-27-2024 M100.678 Pending SARS-CoV-2 (COVID 19) Negative INFLUENZA A Negative INFLUENZA B Negative RSV PCR Negative Normal [facility] Comment on above: Performed By: #### M 100.678 ####[facility] [address] [place], [address] Magnesiumon 03-27-2024 Magnesium [Mass/Vol] 2.1 mg/dL Normal 1.6-2.6 [facility] Comment on above: Performed By: #### L 501.5200, L100.0100, L500.3400, L500.2500, L300.8000, L503.6620, L501.2450 #### [facility] [address] [place], [address] Urinalysis, Completeon 03-27 EPI,SQUAMOUS 0-5 SEEN Normal 5-10 [facility] Comment on above: Order Comment: CLEAN CATCH Performed By: #### L 400.0001 ####[facility] [address] [place], [address] BACTERIA 0 SEEN Normal None Seen [facility] Comment on above: Order Comment: CLEAN CATCH Performed By: #### L 400.0001 ####[facility] [address] [place], [address] Mucus Ql (Urine sed) 0 SEEN Normal [facility] Comment on above: Order Comment: CLEAN CATCH Performed By: #### L 400.0001 ####[facility] [address] [place], [address] RBC 0 SEEN Normal 0-5 [facility] Comment on above: Order Comment: CLEAN CATCH Performed By: #### L 400.0001 ####[facility] [address] [place], [address] WBC 0 SEEN Normal 0-5 [facility] Comment on above: Order Comment: CLEAN CATCH Performed By: #### L 400.0001 ####[facility] [address] [place], [address] [facility] ----- SANDRA SCHMITZ ([id number]) 1945 [place]* Date Time Provider [...] lightheaded Date Reviewed: 02/07/2024 Reviewed by: Yessica Quinetro MA - Fully Assessed Reason for Visit: [...] right [M19.071] 08/02/2022 Coronary artery disease involving benton lopez*08/02/2022 Vitamin D deficiency [E55.9] (more content not included)... Normal [facility] Jayna 03-05-2024 TIMN Telephone ([facility]AMPWS) ----- SANDRA SCHMITZ ([id number]) 1945 [place] Shonna* Date Time Provider [...] right [M19.071] 08/02/2022 Coronary artery disease involving benton lopez*08/02/2022 Vitamin D deficiency [E55.9] 08/02/2022 Somatic [...] (left bundle (more content not included)... Normal [facility] CNOVon 02-12-2024 CNOV Office Visit (FAMPWS ) ----- SANDRA SCHMITZ ([id number]) 1945 [place]* Date Time Provider Department 02/12/24 2:00 PM [facility] During your visit today, we recorded [...] on chronic systolic CHF (congestive heart failure) ([facility]) 05/03/2020 Aspiration pneumonia ([facility]) 05/30/2020 Chest pain 05/03/2020 Chest pressure 01/23/2013 Chronic diastolic congestive heart failure ([facility]) 02/14/2021 Clostridium difficile diarrhea 09/28/2020 Complete uterovaginal prolapse Cystocele, midline Essential hypertension 06/14/2020 Homozygous Factor V Leiden mutation ([facility]) 05/03/2020 Hypothyroidism IBS (irritable bowel syndrome) [...] T3-10ERrSBl L1-2NRrS (more content not included)... Normal [facility] T3Free SerPl-mCncon 02-12-20 24 Free T3 [Mass/Vol] 2.1 pg/mL Low 2.3-4.1 [facility] Comment on above: Order Comment: Speci men Type: BLOOD SPECIMENOrdering Facility: [facility] Address: [address] [place] [address] Performed By: #### 3 051-0, 3024-7, 3016-3 ####[facility] LABCLIA [id number] [facility] [id number] [address] [place] T4 Free SerPl-mCncon 024 Free T4 [Mass/Vol] 1.6 ng/dL Normal 0.9-1.7 [facility] Comment on above: Order Comment: Speci men Type: BLOOD SPECIMENOrdering Facility: [facility] Address: [address] [place] [address] Performed By: #### 3 051-0, 3024-7, 6-3 ####[facility] LABCLIA [id number] [place] [id number] [place] TSH SerPl-aCncon 02-12-2024 TSH Qn 0.695 m[IU]/L Normal 0.270-4.200 [facility] Comment on above: Order Comment: Speci men Type: BLOOD SPECIMENOrdering Facility: [facility] Address: [address] [place] [address] Performed By: #### 3 051-0, 3024-7, 6-3 ####[facility] LABCLIA [id number] [address] [place] CNOVon 02-07-2024 CNOV Office Visit (CARDMM ) ----- SANDRA SCHMITZ ([id number]) 1945 [place]* Date Time Provider Department 02/07/24 2:20 PM ANGEL CASTRO During your visit today, we recorded the following information about you: Pulse Blood pressure Weight 83/minute 132/78 89.2 kg Angel Castro DO 02/07/2024 2:40 PM Signed [facility] [place] [facility] Department of Cardiovascular Medicine SECTION OF [facility] OUTPATIENT VISIT DATE February 07, 2024 OUTPATIENT VISIT TYPE ESTABLISHED PATIENT Name: Sandra Ricardo Nadir : 1945 Date: February 07, 2024 PRIMARY CARE PHYSICIAN: Mandeep Houser [address] [place] [address] REFERRING PHYSICIAN: No referring provider defined for this encounter. CHIEF COMPLAINT: Patient presents with: CARD Follow Up 3 Month: PMH: non-ischemic CM, HTN, Hypothyroidism, LBBB 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 IMPRESSION / PLAN: Severe nonischemic cardiomyopathy status post DISTRICT FIRE MANAGEMENT OFFICER-D in July 2023. - [facility] 10/2021: mod LAD, D1 prox 40%, mild [...] breath or increasing abdominal girth. - 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 07/16/23 at [facility] - Follows with advanced heart failure, - Follows with EP, Dr. Wellington and continue follow-up in the device clinic Left bundle branch block - 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 07/16/23 at [facility] - Follows with EP, Dr. Wellington Nonobstructive coronary artery disease - [facility] 10/2021: mod LAD, D1 prox 40%, mild [...] an ejection fraction of 23% status post DISTRICT FIRE MANAGEMENT OFFICER-D in July 2023, hypertension and factor V [...] on chronic systolic CHF (congestive heart failure) ([facility]) 05/03/2020 Aspiration pneumonia ([facility]) 05/30/2020 Chest pain 05/03/2020 Chest pressure [...] status: Former (more content not included)... Normal [facility] ECG COMPLETEon 02-04-2024 Atrial Rate 70 BPM [facility] Calculated P [place] 21 degrees [facility] Calculated R [place] -61 degrees [facility] Calculated T [place] 63 degrees [facility] P-R Interval 132 ms [facility] QRS Duration 116 ms [facility] QT Interval 462 ms [facility] QTC Calculation (Bazett) 498 ms [facility] Ventricular Rate 70 BPM [facility] NORMAL SINUS RHYTHM LEFT AXIS DEVIATION INFERIOR MYOCARDIAL INFARCTION , AGE UNDETERMINED ANTEROLATERAL INFARCTION , AGE UNDETERMINED ABNORMAL ECG Confirmed by AUGUSTINE WAN MD ([id number]) on 02/04/2024 10:18:22 AM [facility] NAME : SANDRA SCHMITZ PID : [id number] : 1945 Gender : Female Race : [...] Acquired by : , HEART AND VASCULAR [facility] NT PRO BNPon 01-30-2024 Natriuretic peptide.B prohormone N-Terminal [Mass/Vol] 2145 pg/mL High NINF - 450 pg/mL [facility] Natriuretic peptide.B prohor briana N-Terminal [Mass/Vol]on 01-30-2024 Interpretation and review of laboratory results Abnormal [facility] CNOVon 01-29-2024 CNOV Office Visit (FAMPWS ) ----- SANDRA SCHMITZ ([id number]) 1945 [place]* Date Time Provider Department [...] on chronic systolic CHF (congestive heart failure) ([facility]) 05/03/2020 Aspiration pneumonia ([facility]) 05/30/2020 Chest pain 05/03/2020 Chest pressure 01/23/2013 Chronic diastolic congestive heart failure ([facility]) 02/14/2021 Clostridium difficile diarrhea 09/28/2020 Complete uterovaginal prolapse Cystocele, midline Essential hypertension 06/14/2020 Homozygous Factor V Leiden mutation ([facility]) 05/03/2020 Hypothyroidism IBS (irritable bowel syndrome) [...] edema. No (more content not included)... Normal [facility] NT-proBNP Becky-Daniel 01-28 Natriuretic peptide.B prohormone N-Terminal [Mass/Vol] 2145 pg/mL High <450 [facility] Comment on above: Order Comment: Speci men Type: BLOOD SPECIMENOrdering Facility: [facility] Address: [address] [place] [address] Performed By: #### 3 3762-6 ####[facility] LABCLIA [id number] [address] CNOVon 01-15-2024 CNOV Office Visit (CACHFV ) ----- SANDRA SCHMITZ ([id number]) 1945 [place]* Date Time Provider [...] and weight daily. Please notify us via ZenDe[employer]hart if your Systolic BP (top number) < [...] heart kidney injury risk Please send a [employer] message or call with any questions or concerns: Outpatient Number: [phone] Thank you, Pili Wells MD Advanced Heart Failure and Transplant Director Of Curriculum [place] [phone] Pili Wells MD 03/07/2024 7:04 PM Signed [facility] SECTION OF HEART FAILURE and CARDIAC TRANSPLANT MEDICINE [facility] OUTPATIENT VISIT DATE January 15, 2024 OUTPATIENT VISIT TYPE Established PRIMARY CARE PHYSICIAN: Mandeep Houser [address] [place] [phone] CHIEF COMPLAINT: Follow Up HISTORY OF PRESENT ILLNESS: Sandra Schmitz is a 78 year old female with a medical history that includes non-ischemic CM, HTN, Hypothyroidism, LBBB 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 who is referred to me for heart failure management. Sandar Schmitz was initially diagnosed with non-ischemic CM ~ 4 yrs ago and was doing well on losartan and metoprolol. She had progressive sxs of dyspnea on exertion, therefore she was started on entresto and farxiga and her sxs persisted and she was admitted locally in [place] and then transferred to for DISTRICT FIRE MANAGEMENT OFFICER consideration. Interval History: Sandra Schmitz was last [...] LVEF 40%, LVEdd 4.8cm. LBBB: chronic. S/p DISTRICT FIRE MANAGEMENT OFFICER 07/2023 Non-obstructive CAD: stable, ischemic testing recently [...] on chronic systolic CHF (congestive heart failure) ([facility]) 05/30/2020: Aspiration pneumonia ([facility]) 05/03/2020: Chest pain 01/23/2013: Chest pressure 02/14/2021: Chronic diastolic congestive heart failure ([facility]) 09/28/2020: Clostridium difficile diarrhea No date: Complete uterovaginal prolapse No date: Cystocele, midline 06/14/2020: Essential hypertension 05/03/2020: Homozygous Factor V Leiden mutation ([facility]) No date: Hypothyroidism 01/23/2013: IBS (irritable bowel syn (more content not included)... Normal [facility] [id number] 01-15-2024 ECG01 Ventricular Rate : 7 0 BPM Atrial Rate : 70 BPM P-R Interval : 132 ms QRS Duration : 116 ms Q-T Interval : 462 ms QTC Calculation(Bazett) : 498 ms Calculated P [place] : 21 degrees Calculated R [place] : -61 degrees Calculated T [place] : 63 degrees NORMAL SINUS RHYTHM LEFT AXIS DEVIATION INFERIOR MYOCARDIAL INFARCTION , AGE UNDETERMINED ANTEROLATERAL INFARCTION , AGE UNDETERMINED ABNORMAL ECG Confirmed by AUGUSTINE WAN MD ([id number]) on 02/04/2024 10:18:22 AM NAME : SANDRA SCHMITZ PID : [id number] : 1945 Gender : Female Race : [...] PILI WELLS Acquired by : Terrie COPE [facility] CNOVon 01-04-2024 CNOV Office Visit (FAMPWS ) ----- SANDRA SCHMITZ ([id number]) 1945 [place]* Date Time Provider Department 01/04/24 4:20 PM [facility] During your visit today, we recorded [...] on chronic systolic CHF (congestive heart failure) ([facility]) 05/30/2020: Aspiration pneumonia ([facility]) 05/03/2020: Chest pain 01/23/2013: Chest pressure 02/14/2021: Chronic diastolic congestive heart failure ([facility]) 09/28/2020: Clostridium difficile diarrhea No date: Complete uterovaginal prolapse No date: Cystocele, midline 06/14/2020: Essential hypertension 05/03/2020: Homozygous Factor V Leiden mutation ([facility]) No date: Hypothyroidism 01/23/2013: IBS (irritable [...] no c (more content not included)... Normal [facility] CBC W Auto Differential pane l (Bld)on 12-12-2023 Basophils (Bld) [#/Vol] 0.11 10*3/uL High <0.11 [facility] Comment on above: Order Comment: Speci men Type: BLOOD SPECIMENOrdering Facility: [facility] [place] Address: [address] [place] [address] Performed By: #### 5 7021-8, 4536-7 ####[facility] LABCLIA [id number] [facility] [address] [place] Basophils/100 WBC (Bld) 1.2 % Normal [facility] Comment on above: Order Comment: Speci men Type: BLOOD SPECIMENOrdering Facility: [facility] [place] Address: [address] [place] [address] Performed By: #### 5 7021-8, 7 ####[facility] LABCLIA [id number] [place] [address] [place] Differential cell count method Nom (Bld) Auto Normal [facility] Comment on above: Order Comment: Speci men Type: BLOOD SPECIMENOrdering Facility: [facility] [place] Address: [address] [place] [address] Performed By: #### 5 7021-8, 7 ####[facility] LABCLIA [id number] [place] [address] [place] Eosinophils (Bld) [#/Vol] 0.20 10*3/uL Normal <0.46 [facility] Comment on above: Order Comment: Speci men Type: BLOOD SPECIMENOrdering Facility: [facility] [place] Address: [address] [place] [address] Performed By: #### 5 7021-8, 7 ####[facility] LABCLIA [id number] [place] [address] [place] Eosinophils/100 WBC (Bld) 2.1 % Normal [facility] Comment on above: Order Comment: Speci men Type: BLOOD SPECIMENOrdering Facility: [facility] [place] Address: [address] [place] [address] Performed By: #### 5 7021-8, 7 ####[facility] LABCLIA [id number] [address] [address] [place] Erythrocyte distribution width (RBC) [Ratio] 14.4 % Normal 11.5-15.0 [facility] Comment on above: Order Comment: Speci men Type: BLOOD SPECIMENOrdering Facility: [facility] [place] Address: [address] [place] [address] Performed By: #### 5 7021-8, 7 ####[facility] LABIA [id number] [place] [address] [place] Hematocrit (Bld) [Volume fraction] 40.5 % Normal 36.0-46.0 [facility] Comment on above: Order Comment: Speci men Type: BLOOD SPECIMENOrdering Facility: [facility] [place] Address: [address] [place] [address] Performed By: #### 5 7021-8, 7 ####[facility] LABIA [id number] [place] [id number] [place] Hemoglobin (Bld) [Mass/Vol] 12.6 g/dL Normal 11.5-15.5 [facility] Comment on above: Order Comment: Speci men Type: BLOOD SPECIMENOrdering Facility: [facility] [place] Address: [address] [place] [address] Performed By: #### 5 7021-8, 7 ####[facility] LABIA [id number] [address] [address] [place] Immature granulocytes (Bld) [#/Vol] 0.05 10*3/uL Normal <0.10 [facility] Comment on above: Order Comment: Speci men Type: BLOOD SPECIMENOrdering Facility: [facility] [place] Address: [address] [place] [address] Performed By: #### 5 7021-8, 4536-7 ####[facility] LABCLIA [id number] [place] [address] [place] Immature granulocytes/100 WBC (Bld) 0.5 % Normal [facility] Comment on above: Order Comment: Speci men Type: BLOOD SPECIMENOrdering Facility: [facility] [place] Address: [address] [place] [address] Performed By: #### 5 7021-8, 7 ####[facility] LABCLIA [id number] [place] [address] [place] Lymphocytes (Bld) [#/Vol] 3.55 10*3/uL Normal 1.00-4.00 [facility] Comment on above: Order Comment: Speci men Type: BLOOD SPECIMENOrdering Facility: [facility] [place] Address: [address] [place] [address] Performed By: #### 5 7021-8, 7 ####[facility] LABCLIA [id number] [place] [address] [place] Lymphocytes/100 WBC (Bld) 37.6 % Normal [facility] Comment on above: Order Comment: Speci men Type: BLOOD SPECIMENOrdering Facility: [facility] [place] Address: [address] [place] [address] Performed By: #### 5 7021-8, 7 ####[facility] LABCLIA [id number] [place] [address] [place] MCH (RBC) [Entitic mass] 28.8 pg Normal 26.0-34.0 [facility] Comment on above: Order Comment: Speci men Type: BLOOD SPECIMENOrdering Facility: [facility] [place] Address: [address] [place] [address] Performed By: #### 5 7021-8, 4536-7 ####[facility] LABCLIA [id number] [place] [id number] [place] MCHC (RBC) [Mass/Vol] 31.1 g/dL Normal 30.5-36.0 [facility] Comment on above: Order Comment: Speci men Type: BLOOD SPECIMENOrdering Facility: [facility] Address: [address] [place] [address] Performed By: #### 5 7021-8, 7-7 ####[facility] LABCLIA [id number] [place] [address] [place] MCV (RBC) [Entitic vol] 92.5 fL Normal 80.0-100.0 [facility] Comment on above: Order Comment: Speci men Type: BLOOD SPECIMENOrdering Facility: [facility] Address: [address] [place] [address] Performed By: #### 5 7021-8, 4537-7 ####[facility] LABCLIA [id number] [place] [address] [place] Monocytes (Bld) [#/Vol] 1.02 10*3/uL High <0.87 [facility] Comment on above: Order Comment: Speci men Type: BLOOD SPECIMENOrdering Facility: [facility] Address: [address] [place] [address] Performed By: #### 5 7021-8, 4536-7 ####[facility] LABCLIA [id number] [place] [address] [place] Monocytes/100 WBC (Bld) 10.8 % Normal [facility] Comment on above: Order Comment: Speci men Type: BLOOD SPECIMENOrdering Facility: [facility] [place] Address: [address] [place] [address] Performed By: #### 5 7021-8, 4537-7 ####[facility] LABCLIA [id number] [place] [id number] [place] Neutrophils (Bld) [#/Vol] 4.51 10*3/uL Normal 1.45-7.50 [facility] Comment on above: Order Comment: Speci men Type: BLOOD SPECIMENOrdering Facility: [facility] [place] Address: [address] [place] [address] Performed By: #### 5 7021-8, 4537-7 ####[facility] LABCLIA [id number] [place] [address] [place] Neutrophils/100 WBC (Bld) 47.8 % Normal [facility] Comment on above: Order Comment: Speci men Type: BLOOD SPECIMENOrdering Facility: [facility] [place] Address: [address] [place] [address] Performed By: #### 5 7021-8, 453-7 ####[facility] LABCLIA [id number] [place] [address] [place] Nucleated RBC (Bld) [#/Vol] 10*3/uL Normal <0.01 [facility] Comment on above: Order Comment: Speci men Type: BLOOD SPECIMENOrdering Facility: [facility] [place] Address: [address] [place] [address] Performed By: #### 5 7021-8, 4537-7 ####[facility] LABCLIA [id number] [place] [address] [place] Nucleated RBC/100 WBC (Bld) [Ratio] 0.0 /100 WBC Normal [facility] Comment on above: Order Comment: Speci men Type: BLOOD SPECIMENOrdering Facility: [facility] Address: [address] [place] [address] Performed By: #### 5 7021-8, 4537-7 ####[facility] LABCLIA [id number] [place] [address] [place] Platelet mean volume (Bld) [Entitic vol] 10.5 fL Normal 9.0-12.7 [facility] Comment on above: Order Comment: Speci men Type: BLOOD SPECIMENOrdering Facility: [facility] Address: [address] [place] [address] Performed By: #### 5 7021-8, 4537-7 ####[facility] LABCLIA [id number] [place] [address] [place] Platelets (Bld) [#/Vol] 328 10*3/uL Normal 150-400 [facility] Comment on above: Order Comment: Specjeffy jesus Type: BLOOD SPECIMENOrdering Facility: [facility] Address: [address] [place] [address] Performed By: #### 5 7021-8, 4537-7 ####[facility] LABCLIA [id number] [place] [address] [place] RBC (Bld) [#/Vol] 4.38 10*6/uL Normal 3.90-5.20 [facility] Comment on above: Order Comment: Lenard jesus Type: BLOOD SPECIMENOrdering Facility: [facility] Address: [address] [place] [address] Performed By: #### 5 7021-8, 4537-7 ####[facility] LABIA [id number] [place] [address] [place] WBC (Bld) [#/Vol] 9.44 10*3/uL Normal 3.70-11.00 [facility] Comment on above: Order Comment: Lenard jesus Type: BLOOD SPECIMENOrdering Facility: [facility] Address: [address] [place] [address] Performed By: #### 5 7021-8, 4537-7 ####[facility] LABIA [id number] [place] [address] [place] CELIAC SCREENon 12-12-2023 GLIAD DEAMIDATED IGA QUAL Negative Normal Negative, Test not Indicated [facility] Comment on above: Order Comment: Lenard jesus Type: BLOOD SPECIMENOrdering Facility: [facility] Address: [address] [place] [address] Result Comment: This is used as an aid in diagnosis of celiac disease. Clinical correlation is required. The following results were obtained with an Inova QUANTA Lite Gliadin IgA BLAYNE Gliadin. Gliadin IgA values obtained with different manufacturers' assay methods may not be used interchangeably. The magnitude of the reported IgA levels cannot be correlated to an endpoint titer. Performed By: #### L [id number] ####[facility] LABCLIA [id number] [address] Gliadin peptide IgA Qn (S) 4 Units Normal <20 [facility] Comment on above: Order Comment: Speci men Type: BLOOD SPECIMENOrdering Facility: [facility] Address: [address] [place] [address] Performed By: #### L [id number] ####[facility] LABCLIA [id number] [address] [place] INTERPRETATION No serological evide nce of celiac disease, however, if celiac disease is clinically suspected and patient is not on gluten-free diet, histological diagnosis may be considered. HLA testing may help with risk assessment. Normal [facility] Comment on above: Order Comment: Lenard jesus Type: BLOOD SPECIMENOrdering Facility: [facility] Address: [address] [place] [address] Performed By: #### L [id number] ####[facility] LABCLIA [id number] [address] TRANSGLUTAMINASE IGA ABS INTERPRETATION Negative Normal Negative [facility] Comment on above: Order Comment: Lenard jesus Type: BLOOD SPECIMENOrdering Facility: [facility] Address: [address] [place] [address] Result Comment: The following results were obtained with Inova QUANTA Lite R h-tTG IgA BLAYNE.???R h-tTG IgA values obtained with different manufacturers' assay methods may not be used interchangeably. The magnitude of the reported IgA levels cannot be corelated to an endpoint???concentration. This is used as an aid in diagnosis of celiac disease. Clinical correlation is required. Performed By: #### L [id number] ####[facility] LABCLIA [id number] [place] [address] [place] tTG IgA Qn (S) <2 Normal <4 [facility] Comment on above: Order Comment: Speci men Type: BLOOD SPECIMENOrdering Facility: [facility] Address: [address] [place] [address] Performed By: #### L [id number] ####[facility] LABCLIA [id number] [address] [place] CNOVon 12-12-2023 CNOV Office Visit (FAMPWS ) ----- SANDRA SCHMITZ ([id number]) 1945 [place] [employer] Date Time Provider Department 12/12/23 3:40 PM [facility] During your visit today, we recorded [...] on chronic systolic CHF (congestive heart failure) ([facility]) 05/30/2020: Aspiration pneumonia ([facility]) 05/03/2020: Chest pain 01/23/2013: Chest pressure 02/14/2021: Chronic diastolic congestive heart failure ([facility]) 09/28/2020: Clostridium difficile diarrhea No date: Complete uterovaginal prolapse No date: Cystocele, midline 06/14/2020: Essential hypertension 05/03/2020: Homozygous Factor V Leiden mutation ([facility]) No date: Hypothyroidism 01/23/2013: IBS (irritable [...] fullness ri (more content not included)... Normal [facility] CRP SerPl-ncon 12-12-2023 CRP [Mass/Vol] 1.2 mg/dL High <0.9 [facility] Comment on above: Order Comment: Speci men Type: BLOOD SPECIMENOrdering Facility: [facility] Address: [address] [place], [place] [address] Performed By: #### 2 4322-12, 1987-09 ####[facility] LABCLIA [id number] [address] [address] [place] Comprehensive metabolic 2000 panelon 12-12-2023 Albumin [Mass/Vol] 4.0 g/dL Normal 3.9-4.9 [facility] Comment on above: Order Comment: Speci men Type: BLOOD SPECIMENOrdering Facility: [facility] Address: [address] [place] [address] Performed By: #### 2 4322-12, 1987-09 ####[facility] LABCLIA [id number] [place] [address] [place] ALP [Catalytic activity/Vol] 68 U/L Normal 34-123 [facility] Comment on above: Order Comment: Speci men Type: BLOOD SPECIMENOrdering Facility: [facility] Address: [address] [place] [address] Performed By: #### 2 4322-12, 1987-09 ####[facility] LABCLIA [id number] [place] [address] [place] ALT [Catalytic activity/Vol] 11 U/L Normal 7-38 [facility] Comment on above: Order Comment: Speci men Type: BLOOD SPECIMENOrdering Facility: [facility]ant[facility] ruizna Address: [address] [place] [address] Performed By: #### 2 4322-12, 1987-09 ####[facility] LABCLIA [id number] [address] [address] [place] Anion gap [Moles/Vol] 12 mmol/L Normal 8-15 [facility] Comment on above: Order Comment: Speci men Type: BLOOD SPECIMENOrdering Facility: [facility] Address: [address] [place] [address] Performed By: #### 2 4322-12, 1987-09 ####[facility] LABCLIA [id number] [place] [address] [place] AST [Catalytic activity/Vol] 18 U/L Normal 13-35 [facility] Comment on above: Order Comment: Speci men Type: BLOOD SPECIMENOrdering Facility: [facility] Address: [address] [place] [address] Performed By: #### 2 4322-12, 1987-09 ####[facility] LABCLIA [id number] [place] [address] [place] Bilirubin [Mass/Vol] 0.3 mg/dL Normal 0.2-1.3 [facility] Comment on above: Order Comment: Speci men Type: BLOOD SPECIMENOrdering Facility: [facility] Address: [address] [place] [address] Performed By: #### 2 4322-12, 1987-09 ####[facility] LABCLIA [id number] [place] [address] [place] Calcium [Mass/Vol] 9.4 mg/dL Normal 8.5-10.2 [facility] Comment on above: Order Comment: Speci men Type: BLOOD SPECIMENOrdering Facility: [facility] Address: [address] [place] [address] Performed By: #### 2 4322-12, 1987-09 ####[facility] LABCLIA [id number] [place] [address] [place] Chloride [Moles/Vol] 103 mmol/L Normal 98-107 [facility] Comment on above: Order Comment: Speci men Type: BLOOD SPECIMENOrdering Facility: [facility] Address: [address] [place] [address] Performed By: #### 2 4322-12, 1987-09 ####[facility] LABCLIA [id number] [place] [address] [place] CO2 [Moles/Vol] 26 mmol/L Normal 22-30 [facility] Comment on above: Order Comment: Speci men Type: BLOOD SPECIMENOrdering Facility: [facility]antLet[facility] ruiz Address: [address] [place] [address] Performed By: #### 2 4322-12, 1987-09 ####[facility] LABCLIA [id number] [address] [address] [place] Creatinine [Mass/Vol] 0.96 mg/dL Normal 0.58-0.96 [facility] Comment on above: Order Comment: Speci men Type: BLOOD SPECIMENOrdering Facility: [facility] Address: [address] [place] [address] Performed By: #### 2 4322-12, 1987-09 ####[facility] LABCLIA [id number] [place] [address] [place] Creatinine and Glomerular filtration rate.predicted panel (S/P/Bld) 61 mL/min/1.73m??? Normal >=60 [facility] Comment on above: Order Comment: Specjeffy jesus Type: BLOOD SPECIMENOrdering Facility: [facility] Address: [address] [place] [address] Result Comment: Aaron mated Glomerular Filtration Rate [...] GFR. Performed By: #### 2 4322-12, 1987-09 ####[facility] LABCLIA [id number] [address] [address] [place] Glucose [Mass/Vol] 82 mg/dL Normal 74-99 [facility] Comment on above: Order Comment: Speci edin Type: BLOOD SPECIMENOrdering Facility: [facility] ru[facility] Address: [address] [place] [address] Result Comment: The [place] Diabetes Association (ADA) provides guidance for cutoff [...] Standards of Medical Care in Diabetes 2016, [place] Diabetes Association. Diabetes Care. 2016.39(Suppl 1). Performed By: #### 2 43207-19, 1987-09 ####[facility] LABCLIA [id number] [place] [address] [place] Potassium [Moles/Vol] 4.0 mmol/L Normal 3.7-5.1 [facility] Comment on above: Order Comment: Lenard jesus Type: BLOOD SPECIMENOrdering Facility: [facility] Address: [address] [place] [address] Performed By: #### 2 4322-12, 1987-09 ####[facility] LABIA [id number] [place] [address] [place] Protein [Mass/Vol] 7.2 g/dL Normal 6.3-8.0 [facility] Comment on above: Order Comment: Lenard jesus Type: BLOOD SPECIMENOrdering Facility: [facility] Address: [address] [place] [address] Performed By: #### 2 4322-12, 1987-09 ####[facility] LABCLIA [id number] [place] [address] [place] Sodium [Moles/Vol] 141 mmol/L Normal 136-144 [facility] Comment on above: Order Comment: Lenard jesus Type: BLOOD SPECIMENOrdering Facility: [facility] Address: [address] [place] [address] Performed By: #### 2 8, 1987-09 ####[facility] LABCLIA [id number] [place] [address] [place] Urea nitrogen [Mass/Vol] 22 mg/dL High 7-21 [facility] Comment on above: Order Comment: Speci edin Type: BLOOD SPECIMENOrdering Facility: [facility] Address: [address] [place] [address] Performed By: #### 2 4323-8, 1987-09 ####[facility] LABCLIA [id number] [place] [id number] [place] ESR Westergren method (Bld) [Velocity]on 12-12-2023 ESR (Bld) [Velocity] 32 mm/h High 0-20 [facility] Comment on above: Order Comment: Ernestinei edin Type: BLOOD SPECIMENOrdering Facility: [facility] Address: [address] [place] [address] Performed By: #### 5 7021-8, 4537-7 ####[facility] LABIA [id number] [address] [place] IgA SerPl-mCncon 12-12-2023 IgA [Mass/Vol] 177 mg/dL Normal 70-400 [facility] Comment on above: Order Comment: Lenard jesus Type: BLOOD SPECIMENOrdering Facility: [facility] Address: [address] [place] [address] Performed By: #### 2 458-8 ####[facility] LABCLIA [id number] [place] [id number] [place] Jayna 12-06-2023 TIMN Telephone (EDUARDO) ----- SANDRA SCHMITZ ([id number]) 1945 [place] [employer] Date Time Provider Department 12/06/23 PILI WELLS During your visit today, we recorded the following information about you: Pili Wells MD 12/06/2023 6:51 PM Signed Echo results reviewed. LVEF remains stable, mitral regurgitation is improved. At this time we will continue with medications. No changes Helen Ramachandran RN 12/10/2023 11:41 AM Signed Pili Wells MD De, Please call patient with results. She doesn't [...] right [M19.071] 08/02/2022 Coronary artery disease involving benton lopez*08/02/2022 Vitamin D deficiency [E55.9] 08/02/2022 Somatic dysfunction of head region [M99.00] 08/10/2022 Chronic neck pain [M54.2, G89.29] 08/24/2022 Chronic bronchitis (HCC) [J42] 09/11/2022 SVT (supraventricular tachycardia) (HCC) (more content not included)... Normal [facility] ECHOon 12-05-2023 CONCLUSIONS: - Exam indication: [...] * * * Final * * * [facility] Echocardiography Report: Transthoracic Echo [facility] Date of service: 12/05/2023 1:16:13 PM Ordering physician: PILI WELLS Indication: Heart failure Technologist: Maritza Ahn [facility] Interpreting physician: Jim Gonzalez DO PATIENT: Name: MRS. SNADRA SCHMITZ : 1945 Age: 78 years Gender: F History of hypertension, dyslipidemia, heart failure with hospitalization, cardiomyopathy, coronary artery disease and arrhythmia. 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 Paced. Height: 160.02 [...] as detected by Doppler. KO [facility] Jayna 12-03-2023 CNPN Telephone (FAMPWS) ----- SANDRA SCHMITZ ([id number]) 1945 [place]* Date Time Provider Department 12/03/23 [facility] During your visit today, we recorded [...] states that order/letter should be faxed to [facility] [phone]. Please review and advise, CARO Soria Jordan L, DO 12/05/2023 7:20 AM Signed Please create letter as below to hold cardiac rehab due to her back pain for 2-3 weeks DO Juana Gamez Kim E, LPN 12/05/2023 11:08 AM Signed letter completed and signed and faxed to [facility] cardiac rehab. Lillian Arias LPN Allergies As [...] 07/18/2022 F (more content not included)... [facility] CNPN Telephone (PODCCP) ----- SANDRA SCHMITZ ([id number]) 1945 [place] Date Time Provider Department 11/28/23 MANDEEP HOUSER PODCCJohn During your visit today, we recorded the following information about you: Concetta Dahl 11/28/2023 11:09 AM Signed Transitional Care Management (TCM) [facility] Monitoring Program Provider Action / FYI: N/A SUMMARY: Outreach type: FOLLOW-UP OUTREACH Discharge Network Status: In-Network Discharge Source of Patient: [facility] TCM Discharge Report Patient discharged from [facility] on 11/[facility]/23. Admitted for Pre-syncope. Contact made with patient: Yes, for Follow-up Outreach Hi, my name is Cocnetta Dahl. I am calling from the [facility] on behalf of your Primary Care Provider, [...] Center phone number to speak with a harbor engineer who can assist you with that appointment. [...] gout involv (more content not included)... Normal [facility] Jayna 11-23-2023 TIMN Telephone (PODCCP) ----- SANDRA SCHMITZ ([id number]) 1945 [place]* Date Time Provider Department 11/23/23 ROJAS PRAKASH PODCCP During your visit today, we recorded the following information about you: Rojas Prakash RN 11/23/2023 1:30 PM Signed Transitional Care Management (TCM) [facility] Monitoring Program Provider Action / FYI: na SUMMARY: Outreach type: INITIAL OUTREACH Discharge Network Status: In-Network Discharge Source of Patient: [facility] TCM Discharge Report Patient discharged from [facility] on 11.18.23. Admitted for Pre-syncope . Contact [...] right [M19.071] 08/02/2022 Coronary artery disease involving benton lopez*08/02/2022 Vitamin D deficiency [E55.9] 08/02/2022 Somatic dysfunction of head region [M99.00] 08/10/2022 Chronic neck pain [M54.2, G89.29] 08/24/2022 Chronic bronchitis (HCC) [J42] 09/11/2022 SVT (supraventricular tachycardia) (HCC) [I47.1*09/11/2022 Combined systol (more content not included)... Normal [facility] CBC panel Auto (Bld)on 11-17 Erythrocyte distribution width (RBC) [Ratio] 14.1 % Normal 11.5-15.0 [facility] Comment on above: Order Comment: Speci men Type: BLOOD SPECIMENOrdering Facility: [facility] Address: [address] [place] [address] [place] [address] Performed By: #### 5 6769-2 ####[facility] LABORATORYCLIA [id number] [address] Hematocrit (Bld) [Volume fraction] 39.4 % Normal 36.0-46.0 [facility] Comment on above: Order Comment: Speci men Type: BLOOD SPECIMENOrdering Facility: [facility] Address: [address] [place] [address] Performed By: #### 5 8410-2 ####[facility] LABORATORYCLIA [id number] [address] Hemoglobin (Bld) [Mass/Vol] 12.5 g/dL Normal 11.5-15.5 [facility] Comment on above: Order Comment: Speci men Type: BLOOD SPECIMENOrdering Facility: [facility] Address: [address] [place] [address] Performed By: #### 5 8410-2 ####[facility] LABORATORYCLIA [id number] [address] MCH (RBC) [Entitic mass] 28.9 pg Normal 26.0-34.0 [facility] Comment on above: Order Comment: Speci men Type: BLOOD SPECIMENOrdering Facility: [facility] Address: [address] [place] [address] Performed By: #### 5 8410-2 ####[facility] LABORATORYCLIA [id number] [address] MCHC (RBC) [Mass/Vol] 31.7 g/dL Normal 30.5-36.[address] [facility] Comment on above: Order Comment: Speci men Type: BLOOD SPECIMENOrdering Facility: [facility] Address: [address] [place] [address] Performed By: #### 5 8410-2 ####[facility] LABORATORYCLIA [id number] [address] MCV (RBC) [Entitic vol] 91.2 fL Normal 80.0-100.0 [facility] Comment on above: Order Comment: Speci men Type: BLOOD SPECIMENOrdering Facility: [facility] Address: [address] [place] [address] Performed By: #### 5 8410-2 ####[facility] LABORATORYCLIA [id number] [place] [address] [place] Nucleated RBC (Bld) [#/Vol] 10*3/uL Normal <0.01 [facility] Comment on above: Order Comment: Speci men Type: BLOOD SPECIMENOrdering Facility: [facility] Address: [address] [place] [address] Performed By: #### 5 8410-2 ####KO LABORATORYCLIA [id number] [place] [address] [place] Platelet mean volume (Bld) [Entitic vol] 10.1 fL Normal 9.0-12.7 [facility] Comment on above: Order Comment: Speci men Type: BLOOD SPECIMENOrdering Facility: [facility] Address: [address] [place] [address] Performed By: #### 5 8410-2 ####KO LABORATORYCLIA [id number] [place] [address] [place] Platelets (Bld) [#/Vol] 345 10*3/uL Normal 150-400 [facility] Comment on above: Order Comment: Speci men Type: BLOOD SPECIMENOrdering Facility: [facility] Address: [address] [place] [address] Performed By: #### 5 8410-2 ####KO LABORATORYCLIA [id number] [place] [address] [place] RBC (Bld) [#/Vol] 4.32 10*6/uL Normal 3.90-5.20 [facility] Comment on above: Order Comment: Speci men Type: BLOOD SPECIMENOrdering Facility: [facility] Address: [address] [place] [address] Performed By: #### 5 8410-2 ####KO LABORATORYCLIA [id number] [place] [address] [place] WBC (Bld) [#/Vol] 11.76 10*3/uL High 3.70-11.00 [facility] Comment on above: Order Comment: Speci men Type: BLOOD SPECIMENOrdering Facility: [facility] Address: [address] [place] [id number] Performed By: #### 5 8410-2 ####[facility] LABORATORYCLIA [id number] [place] [address] [place] CNCOon 11-18-2023 CNCO Letter Text Normal [facility] CNDSon 11-18-2023 CNDS HNO ID: [id number] Author: REMINGTON CAI MD Service: Hospital Medicine [...] Provider: Remington Cai MD Primary Service: , [facility] Consulting: Bentley Nolasco MD MY [...] call for appointment?: Scheduled Mandeep Houser, [address] [facility] [place] [place] [address] PCP Requested Referral Follow-Up Appointment When: In 2 weeks Bentley Nolasco MD [phone] [facility] [address] [facility] [address] PCP Requested Referral Follow-Up Appointment When: In 2 weeks Angel Castro DO [phone] [address] [place] [address] PCP Requested Referral Additional Provider to Provider [...] (more content not included)... 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 Labs with MAYCOL, leukocytosis. [place] to be vasovagal episode. A GI evaluation [...] on chronic systolic CHF (congestive heart failure) ([facility]) 05/03/2020 Aspiration pneumonia ([facility]) 05/30/2020 Chest pain 05/03/2020 Chest pressure 01/23/2013 Chronic diastolic congestive heart failure ([facility]) 02/14/2021 Clostridium difficile diarrhea 09/28/2020 Complete uterovaginal prolapse Cystocele, midline Essential hypertension 06/14/2020 Homozygous Factor V Leiden mutation ([facility]) 05/03/2020 Hypothyroidism IBS (irritable bowel syndrome) [...] (more content not included)... Normal [facility] CRP SerPl-mCncon 11-18-2023 CRP [Mass/Vol] 1.2 mg/dL High <0.9 [facility] Comment on above: Order Comment: Speci men Type: BLOOD SPECIMENOrdering Facility: [facility] Address: [address] [place] [address] Performed By: #### 1 9123-9, 3016-3, 36756-0, 1987-09 ####KO LABORATORYCLIA [id number] [place] [address] [place] Comprehensive metabolic 2000 panelon 11-18-2023 Albumin [Mass/Vol] 3.8 g/dL Low 3.9-4.9 [facility] Comment on above: Order Comment: Speci men Type: BLOOD SPECIMENOrdering Facility: [facility] Address: [address] [place] [address] Performed By: #### 1 9123-9, 3015-3, , 1987-09 ####MULBERRY LABORATORYCLIA [id number] [place] [address] [place] ALP [Catalytic activity/Vol] 63 U/L Normal 34-123 [facility] Comment on above: Order Comment: Speci men Type: BLOOD SPECIMENOrdering Facility: [facility] Address: [address] [place] [address] Performed By: #### 1 9123-9, 3, , 1987-09 ####MULBERRY LABORATORYCLIA [id number] [place] [address] [place] ALT [Catalytic activity/Vol] 14 U/L Normal 7-38 [facility] Comment on above: Order Comment: Speci men Type: BLOOD SPECIMENOrdering Facility: [facility] Address: [address] [place] [address] Performed By: #### 1 9123-9, 3, , 1987-09 ####MULBERRY LABORATORYCLIA [id number] [place] [id number] [place] Anion gap [Moles/Vol] 7 mmol/L Low 8-[address] [facility] Comment on above: Order Comment: Speci men Type: BLOOD SPECIMENOrdering Facility: [facility] Address: [address] [place] [address] Performed By: #### 1 9123-9, 3, , 1987-09 ####KO LABORATORYCLIA [id number] [place] [address] [place] AST [Catalytic activity/Vol] 15 U/L Normal 13-35 [facility] Comment on above: Order Comment: Speci men Type: BLOOD SPECIMENOrdering Facility: [facility] Address: [address] [place] [address] Performed By: #### 1 9123-9, 3, , 1987-09 ####KO LABORATORYCLIA [id number] [place] [address] [place] Bilirubin [Mass/Vol] 0.5 mg/dL Normal 0.2-1.3 [facility] Comment on above: Order Comment: Speci men Type: BLOOD SPECIMENOrdering Facility: [facility] Address: [facility] [place] [address] Performed By: #### 1 9123-9, 3015-07, , 1987-09 ####MULBERRY LABORATORYCLIA [id number] [place] [address] [place] Calcium [Mass/Vol] 9.1 mg/dL Normal 8.5-10.2 [facility] Comment on above: Order Comment: Speci men Type: BLOOD SPECIMENOrdering Facility: [facility] Address: [facility] [place] [id number] Performed By: #### 1 9123-9, 3015-07, , 1987-09 ####MULBERRY LABORATORYCLIA [id number] [place] [address] [place] Chloride [Moles/Vol] 104 mmol/L Normal 98-107 [facility] Comment on above: Order Comment: Speci men Type: BLOOD SPECIMENOrdering Facility: [facility] Address: [address] [place] [id number] Performed By: #### 1 9123-9, 3, , 1987-09 ####KO LABORATORYCLIA [id number] [place] [address] [place] CO2 [Moles/Vol] 29 mmol/L Normal 22-30 [facility] Comment on above: Order Comment: Speci men Type: BLOOD SPECIMENOrdering Facility: [facility] Address: [facility] [address] Performed By: #### 1 9123-9, 6-3, , 1987-09 ####MULBERRY LABORATORYCLIA [id number] [place] [address] [place] [facility] Creatinine [Mass/Vol] 0.96 mg/dL Normal 0.58-0.[address] [facility] Comment on above: Order Comment: Lenard jesus Type: BLOOD SPECIMENOrdering Facility: [facility] Address: [address] [place] [address] Performed By: #### 1 9123-9, 3015-3, , 1987-09 ####MULBERRY LABORATORYCLIA [id number] [place] [id number] [facility] Creatinine and Glomerular filtration rate.predicted panel (S/P/Bld) 61 mL/min/1.73m??? Normal >=60 [facility] Comment on above: Order Comment: Type: BLOOD SPECIMENOrdering Facility: [facility] Address: [address] [place] [address] Result Comment: Aaron mated Glomerular Filtration Rate [...] By: #### 1 9123-9, 3015-3, , 1987-09 ####MULBERRY LABORATORYCLIA [id number] [place] [id number] [place] [facility] Glucose [Mass/Vol] 81 mg/dL Normal 74-99 [facility] Comment on above: Order Comment: Lenard [facility] Type: BLOOD SPECIMENOrdering Facility: [facility] Address: [address] [place] [address] Result Comment: The [place] Diabetes Association (ADA) provides guidance for cutoff [...] Standards of Medical Care in Diabetes 2016, [place] Diabetes Association. Diabetes Care. 2016.39(Suppl 1). Performed By: #### 1 9123-9, 3, , 1987-09 ####KO LABORATORYCLIA [id number] [place] [address] [place] Potassium [Moles/Vol] 4.1 mmol/L Normal 3.7-5.[address] [facility] Comment on above: Order Comment: Lenard jesus Type: BLOOD SPECIMENOrdering Facility: [facility] Address: [address] [place] [address] Performed By: #### 1 91239, 3015-07, , 1987-09 ####KO LABORATORYCLIA [id number] [place] [address] [place] Protein [Mass/Vol] 6.4 g/dL Normal 6.3-8.0 [facility] Comment on above: Order Comment: Lenard jesus Type: BLOOD SPECIMENOrdering Facility: [facility] Address: [address] [place] [address] Performed By: #### 1 9123-9, 3015-07, , 1987-09 ####KO LABORATORYCLIA [id number] [place] [id number] [place] Sodium [Moles/Vol] 140 mmol/L Normal 136-144 [facility] Comment on above: Order Comment: Lenard jesus Type: BLOOD SPECIMENOrdering Facility: [facility] Address: [address] [place] [address] Performed By: #### 1 9123-9, 3015-07, , 1987-09 ####KO LABORATORYCLIA [id number] [place] [address] [place] Urea nitrogen [Mass/Vol] 30 mg/dL High 7-21 [facility] Comment on above: Order Comment: Speci men Type: BLOOD SPECIMENOrdering Facility: [facility] Address: [address] [place] [address] [place] [id number] Performed By: #### 1 9123-9, 3, , 1987-09 ####KO LABORATORYCLIA [id number] [place] [address] [place] Magnesium SerPl-mCncon 11-17 Magnesium [Mass/Vol] 1.9 mg/dL Normal 1.7-2.3 [facility] Comment on above: Order Comment: Speci men Type: BLOOD SPECIMENOrdering Facility: [facility] Address: [address] [place] [address] Performed By: #### 1 9123-9, 3015-07, , 1987-09 ####MULBERRY LABORATORYCLIA [id number] [place] [address] [place] TSH SerPl-aCncon 11-18-2023 TSH Qn 3.520 m[IU]/L Normal 0.270-4.200 [facility] Comment on above: Order Comment: Speci men Type: BLOOD SPECIMENOrdering Facility: [facility] Address: [address] [place] [address] [place] [address] Performed By: #### 1 9123-9, 3015-07, , 1987-09 ####KO LABORATORYCLIA [id number] [place] [address] [place] CBC panel Auto (Bld)on 11-16 Erythrocyte distribution width (RBC) [Ratio] 14.2 % Normal 11.5-15.0 [facility] Comment on above: Order Comment: Speci men Type: BLOOD SPECIMENOrdering Facility: [facility] Address: [address] [place] [address] Performed By: #### 5 8410-2 ####MULBERRY LABORATORYCLIA [id number] [address] [place] Hematocrit (Bld) [Volume fraction] 36.8 % Normal 36.0-46.0 [facility] Comment on above: Order Comment: Speci men Type: BLOOD SPECIMENOrdering Facility: [facility] Address: [address] [place] [address] Performed By: #### 5 8410-2 ####KO LABORATORYCLIA [id number] [address] Hemoglobin (Bld) [Mass/Vol] 11.6 g/dL Normal 11.5-15.5 [facility] Comment on above: Order Comment: Speci men Type: BLOOD SPECIMENOrdering Facility: [facility] Address: [address] [place] [address] Performed By: #### 5 8410-2 ####KO LABORATORYCLIA [id number] [address] MCH (RBC) [Entitic mass] 29.1 pg Normal 26.0-34.0 [facility] Comment on above: Order Comment: Speci men Type: BLOOD SPECIMENOrdering Facility: [facility] Address: [address] [place] [address] Performed By: #### 5 8410-2 ####KO LABORATORYCLIA [id number] [address] MCHC (RBC) [Mass/Vol] 31.5 g/dL Normal 30.5-36.[address] [facility] Comment on above: Order Comment: Speci men Type: BLOOD SPECIMENOrdering Facility: [facility] Address: [address] [place] [address] Performed By: #### 5 8410-2 ####KO LABORATORYCLIA [id number] [address] MCV (RBC) [Entitic vol] 92.2 fL Normal 80.0-100.0 [facility] Comment on above: Order Comment: Speci men Type: BLOOD SPECIMENOrdering Facility: [facility] Address: [address] [place] [address] Performed By: #### 5 8410-2 ####KO LABORATORYCLIA [id number] [address] Nucleated RBC (Bld) [#/Vol] 10*3/uL Normal <0.01 [facility] Comment on above: Order Comment: Speci men Type: BLOOD SPECIMENOrdering Facility: [facility] Address: [address] [place] [address] Performed By: #### 5 8410-2 ####KO LABORATORYCLIA [id number] [place] [address] [place] Platelet mean volume (Bld) [Entitic vol] 9.8 fL Normal 9.0-12.7 [facility] Comment on above: Order Comment: Speci men Type: BLOOD SPECIMENOrdering Facility: [facility] Address: [address] [place] [address] Performed By: #### 5 8410-2 ####KO LABORATORYCLIA [id number] [place] [address] [place] Platelets (Bld) [#/Vol] 321 10*3/uL Normal 150-400 [facility] Comment on above: Order Comment: Speci men Type: BLOOD SPECIMENOrdering Facility: [facility] Address: [address] [place] [address] Performed By: #### 5 8410-2 ####KO LABORATORYCLIA [id number] [place] [address] [place] RBC (Bld) [#/Vol] 3.99 10*6/uL Normal 3.90-5.20 [facility] Comment on above: Order Comment: Speci men Type: BLOOD SPECIMENOrdering Facility: [facility] Address: [address] [place] [address] Performed By: #### 5 8410-2 ####KO LABORATORYCLIA [id number] [place] [address] [place] WBC (Bld) [#/Vol] 9.28 10*3/uL Normal 3.70-11.00 [facility] Comment on above: Order Comment: Speci men Type: BLOOD SPECIMENOrdering Facility: [facility] Address: [address] [place] [address] Performed By: #### 5 8410-2 ####KO LABORATORYCLIA [id number] [place] [address] [place] Comprehensive metabolic 2000 panelon 11-17-2023 Albumin [Mass/Vol] 3.5 g/dL Low 3.9-4.9 [facility] Comment on above: Order Comment: Speci men Type: BLOOD SPECIMENOrdering Facility: [facility] Address: [address] [place] [address] Performed By: #### 2 432-8, ####KO LABORATORYCLIA [id number] [place] [address] [place] ALP [Catalytic activity/Vol] 56 U/L Normal 34-123 [facility] Comment on above: Order Comment: Speci men Type: BLOOD SPECIMENOrdering Facility: [facility] Address: [address] [place] [address] Performed By: #### 2 4322-8, ####KO LABORATORYCLIA [id number] [address] [place] ALT [Catalytic activity/Vol] 16 U/L Normal 7-38 [facility] Comment on above: Order Comment: Speci men Type: BLOOD SPECIMENOrdering Facility: [facility] Address: [address] [place] [address] Performed By: #### 2 8, ####KO LABORATORYCLIA [id number] [address] [place] Anion gap [Moles/Vol] 5 mmol/L Low 8-[address] [facility] Comment on above: Order Comment: Speci men Type: BLOOD SPECIMENOrdering Facility: [facility] Address: [address] [place] [address] Performed By: #### 2 4322-8, ####KO LABORATORYCLIA [id number] [place] [id number] [place] AST [Catalytic activity/Vol] 16 U/L Normal 13-35 [facility] Comment on above: Order Comment: Speci men Type: BLOOD SPECIMENOrdering Facility: [facility] Address: [address] [place] [address] Performed By: #### 2 4322-8, 57261-2 ####KO LABORATORYCLIA [id number] [place] [address] [place] Bilirubin [Mass/Vol] 0.4 mg/dL Normal 0.2-1.3 [facility] Comment on above: Order Comment: Speci men Type: BLOOD SPECIMENOrdering Facility: [facility] Address: [address] [place] [address] Performed By: #### 2 4323-8, ####KO LABORATORYCLIA [id number] [place] [address] [place] Calcium [Mass/Vol] 8.5 mg/dL Normal 8.5-10.2 [facility] Comment on above: Order Comment: Speci men Type: BLOOD SPECIMENOrdering Facility: [facility] Address: [address] [place] [address] Performed By: #### 2 4323-8, ####KO LABORATORYCLIA [id number] [place] [address] [place] Chloride [Moles/Vol] 110 mmol/L High 98-107 [facility] Comment on above: Order Comment: Speci men Type: BLOOD SPECIMENOrdering Facility: [facility] Address: [address] [place] [address] Performed By: #### 2 4323-8, ####KO LABORATORYCLIA [id number] [place] [address] [place] CO2 [Moles/Vol] 28 mmol/L Normal 22-30 [facility] Comment on above: Order Comment: Speci men Type: BLOOD SPECIMENOrdering Facility: [facility] Address: [address] [place] [address] Performed By: #### 2 4323-8, ####KO LABORATORYCLIA [id number] [place] [address] [place] Creatinine [Mass/Vol] 1.05 mg/dL High 0.58-0.[address] [facility] Comment on above: Order Comment: Speci men Type: BLOOD SPECIMENOrdering Facility: [facility] Address: [address] [place] [address] Performed By: #### 2 4323-8, ####KO LABORATORYCLIA [id number] [place] [address] [place] Creatinine and Glomerular filtration rate.predicted panel (S/P/Bld) 55 mL/min/1.73m??? Low >=60 [facility] Comment on above: Order Comment: Lenard jesus Type: BLOOD SPECIMENOrdering Facility: [facility] Address: [address] [place] [address] Result Comment: Aaron mated Glomerular Filtration Rate [...] Performed By: #### 2 4323-8, ####KO LABORATORYCLIA [id number] [place] [id number] [place] Glucose [Mass/Vol] 79 mg/dL Normal 74-99 [facility] Comment on above: Order Comment: Lenard jesus Type: BLOOD SPECIMENOrdering Facility: [facility] Address: [address] [place] [address] Result Comment: The [place] Diabetes Association (ADA) provides guidance for cutoff [...] Standards of Medical Care in Diabetes 2016, [place] Diabetes Association. Diabetes Care. 2016.39(Suppl 1). Performed By: #### 2 4323-8, ####KO LABORATORYCLIA [id number] [place] [address] [place] Potassium [Moles/Vol] 4.8 mmol/L Normal 3.7-5.[address] [facility] Comment on above: Order Comment: Speci men Type: BLOOD SPECIMENOrdering Facility: [facility] Address: [address] [place] [id number] Performed By: #### 2 4323-8, ####KO LABORATORYCLIA [id number] [place] [address] [place] Protein [Mass/Vol] 6.0 g/dL Low 6.3-8.0 [facility] Comment on above: Order Comment: Speci men Type: BLOOD SPECIMENOrdering Facility: [facility] Address: [address] [place] [address] [place] [address] Performed By: #### 2 432-8, ####KO LABORATORYCLIA [id number] [place] [address] [place] Sodium [Moles/Vol] 143 mmol/L Normal 136-144 [facility] Comment on above: Order Comment: Speci men Type: BLOOD SPECIMENOrdering Facility: [facility] Address: [address] [place] [address] Performed By: #### 2 4323-8, ####KO LABORATORYCLIA [id number] [place] [address] [place] Urea nitrogen [Mass/Vol] 34 mg/dL High 7-21 [facility] Comment on above: Order Comment: Speci men Type: BLOOD SPECIMENOrdering Facility: [facility] Address: [address] [place] [id number] Performed By: #### 2 4323-8, ####KO LABORATORYCLIA [id number] [place] [address] [place] Magnesium SerPl-mCncon 11-16 Magnesium [Mass/Vol] 2.0 mg/dL Normal 1.7-2.3 [facility] Comment on above: Order Comment: Speci men Type: BLOOD SPECIMENOrdering Facility: [facility] Address: [address] [place] [address] Performed By: #### 2 432-8, ####KO LABORATORYCLIA [id number] [address] CBC panel Auto (Bld)on 11-15 Erythrocyte distribution width (RBC) [Ratio] 14.3 % Normal 11.5-15.0 [facility] Comment on above: Order Comment: Speci men Type: BLOOD SPECIMENOrdering Facility: [facility] Address: [address] [place] [address] Performed By: #### 5 8410-2 ####KO LABORATORYCLIA [id number] [address] Hematocrit (Bld) [Volume fraction] 37.4 % Normal 36.0-46.0 [facility] Comment on above: Order Comment: Speci men Type: BLOOD SPECIMENOrdering Facility: [facility] Address: [address] [place] [address] Performed By: #### 5 8410-2 ####KO LABORATORYCLIA [id number] [address] Hemoglobin (Bld) [Mass/Vol] 11.8 g/dL Normal 11.5-15.5 [facility] Comment on above: Order Comment: Speci men Type: BLOOD SPECIMENOrdering Facility: [facility] Address: [address] [place] [address] Performed By: #### 5 8410-2 ####KO LABORATORYCLIA [id number] [address] MCH (RBC) [Entitic mass] 28.9 pg Normal 26.0-34.0 [facility] Comment on above: Order Comment: Speci men Type: BLOOD SPECIMENOrdering Facility: [facility] Address: [address] [place] [address] Performed By: #### 5 8410-2 ####KO LABORATORYCLIA [id number] [address] MCHC (RBC) [Mass/Vol] 31.6 g/dL Normal 30.5-36.[address] [facility] Comment on above: Order Comment: Speci men Type: BLOOD SPECIMENOrdering Facility: [facility] Address: [address] [place] [address] Performed By: #### 5 8410-2 ####KO LABORATORYCLIA [id number] [address] [place] MCV (RBC) [Entitic vol] 91.4 fL Normal 80.0-100.0 [facility] Comment on above: Order Comment: Speci men Type: BLOOD SPECIMENOrdering Facility: [facility] Address: [address] [place] [address] Performed By: #### 5 8410-2 ####KO LABORATORYCLIA [id number] [address] Nucleated RBC (Bld) [#/Vol] 10*3/uL Normal <0.01 [facility] Comment on above: Order Comment: Speci men Type: BLOOD SPECIMENOrdering Facility: [facility] Address: [address] [place] [address] Performed By: #### 5 8410-2 ####KO LABORATORYCLIA [id number] [address] [place] Platelet mean volume (Bld) [Entitic vol] 10.1 fL Normal 9.0-12.7 [facility] Comment on above: Order Comment: Speci men Type: BLOOD SPECIMENOrdering Facility: [facility] Address: [address] [place] [address] Performed By: #### 5 8410-2 ####KO LABORATORYCLIA [id number] [address] [place] Platelets (Bld) [#/Vol] 356 10*3/uL Normal 150-400 [facility] Comment on above: Order Comment: Speci men Type: BLOOD SPECIMENOrdering Facility: [facility] Address: [address] [place] [address] Performed By: #### 5 8410-2 ####KO LABORATORYCLIA [id number] [place] [address] [facility] [place] RBC (Bld) [#/Vol] 4.09 10*6/uL Normal 3.90-5.20 [facility] Comment on above: Order Comment: Speci men Type: BLOOD SPECIMENOrdering Facility: [facility] Address: [address] [place] [address] Performed By: #### 5 8410-2 ####KO LABORATORYCLIA [id number] [place], [place] [id number] [place] [address] [facility] WBC (Bld) [#/Vol] 13.58 10*3/uL High 3.70-11.00 [facility] Comment on above: Order Comment: Speci men Type: BLOOD SPECIMENOrdering Facility: [facility] Address: [address] [place] [address] [place] [id number] Performed By: #### 5 8410-2 ####KO LABORATORYCLIA [id number] [address] Comprehensive metabolic 2000 panelon 11-16-2023 Albumin [Mass/Vol] 3.4 g/dL Low 3.9-4.9 [facility] Comment on above: Order Comment: Speci men Type: BLOOD SPECIMENOrdering Facility: [facility] Address: [address] [place], [place] [address] [id number] Performed By: #### 2 4323-8, ####KO LABORATORYCLIA [id number] [address] [facility] ALP [Catalytic activity/Vol] 58 U/L Normal 34-123 [facility] Comment on above: Order Comment: Speci men Type: BLOOD SPECIMENOrdering Facility: [facility] Address: [address] [place] [id number] Performed By: #### 2 4323-8, 21763-0 ####KO LABORATORYCLIA [id number] [place] [id number] [facility] ALT [Catalytic activity/Vol] 15 U/L Normal 7-38 [facility] Comment on above: Order Comment: Speci men Type: BLOOD SPECIMENOrdering Facility: [facility] Address: [address] [place] [id number] Performed By: #### 2 4323-8, 32153-9 ####KO LABORATORYCLIA [id number] [place] [id number] [facility] [place] Anion gap [Moles/Vol] 10 mmol/L Normal 8-[address] [facility] Comment on above: Order Comment: Speci men Type: BLOOD SPECIMENOrdering Facility: [facility] Address: [address] [place] [address] Performed By: #### 2 4323-8, ####KO LABORATORYCLIA [id number] [address] [place] AST [Catalytic activity/Vol] 16 U/L Normal 13-35 [facility] Comment on above: Order Comment: Speci men Type: BLOOD SPECIMENOrdering Facility: [facility] Address: [address] [place], [place] [address] [address] Performed By: #### 2 432-8, ####KO LABORATORYCLIA [id number] [address] [place] Bilirubin [Mass/Vol] 0.3 mg/dL Normal 0.2-1.3 [facility] Comment on above: Order Comment: Speci men Type: BLOOD SPECIMENOrdering Facility: [facility] Address: [address] [place] [address] Performed By: #### 2 8, ####KO LABORATORYCLIA [id number] [address] [place] Calcium [Mass/Vol] 8.6 mg/dL Normal 8.5-10.2 [facility] Comment on above: Order Comment: Speci men Type: BLOOD SPECIMENOrdering Facility: [facility] Address: [address] [place] [address] Performed By: #### 2 432-8, ####KO LABORATORYCLIA [id number] [place] [address] [place] Chloride [Moles/Vol] 105 mmol/L Normal 98-107 [facility] Comment on above: Order Comment: Speci men Type: BLOOD SPECIMENOrdering Facility: [facility] Address: [address] [place] [address] Performed By: #### 2 432-8, ####KO LABORATORYCLIA [id number] [place] [id number] [place] CO2 [Moles/Vol] 25 mmol/L Normal 22-30 [facility] Comment on above: Order Comment: Lenard jesus Type: BLOOD SPECIMENOrdering Facility: [facility] Address: [address] [place] [address] Performed By: #### 2 4323-8, ####KO LABORATORYCLIA [id number] [place] [address] [place] Creatinine [Mass/Vol] 1.28 mg/dL High 0.58-0.[address] [facility] Comment on above: Order Comment: Speci men Type: BLOOD SPECIMENOrdering Facility: [facility] Address: [address] [place] [address] Performed By: #### 2 4323-8, ####KO LABORATORYCLIA [id number] [address] Creatinine and Glomerular filtration rate.predicted panel (S/P/Bld) 43 mL/min/1.73m??? Low >=60 [facility] Comment on above: Order Comment: Speci men Type: BLOOD SPECIMENOrdering Facility: [facility] Address: [address] [place] [address] Result Comment: Aaron mated Glomerular Filtration Rate [...] Performed By: #### 2 4323-8, ####KO LABORATORYCLIA [id number] [place] [id number] [place] Glucose [Mass/Vol] 121 mg/dL High 74-99 [facility] Comment on above: Order Comment: Ernestinei edin Type: BLOOD SPECIMENOrdering Facility: [facility] Address: [address] [place] [address] Result Comment: The [place] Diabetes Association (ADA) provides guidance for cutoff [...] Standards of Medical Care in Diabetes 2016, [place] Diabetes Association. Diabetes Care. 2016.39(Suppl 1). Performed By: #### 2 4328, ####KO LABORATORYCLIA [id number] [place] [address] [place] Potassium [Moles/Vol] 4.7 mmol/L Normal 3.7-5.[address] [facility] Comment on above: Order Comment: Lenard jesus Type: BLOOD SPECIMENOrdering Facility: [facility] Address: [address] [place] [address] Performed By: #### 2 4322-12, ####KO LABORATORYCLIA [id number] [place] [address] [place] Protein [Mass/Vol] 6.3 g/dL Normal 6.3-8.0 [facility] Comment on above: Order Comment: Lenard jesus Type: BLOOD SPECIMENOrdering Facility: [facility] Address: [address] [place] [address] Performed By: #### 2 4322-12, ####KO LABORATORYCLIA [id number] [place] [address] [place] Sodium [Moles/Vol] 140 mmol/L Normal 136-144 [facility] Comment on above: Order Comment: Lenard jesus Type: BLOOD SPECIMENOrdering Facility: [facility] Address: [address] [place] [address] Performed By: #### 2 4328, ####KO LABORATORYCLIA [id number] [place] [address] [place] Urea nitrogen [Mass/Vol] 46 mg/dL High 7-21 [facility] Comment on above: Order Comment: Speci men Type: BLOOD SPECIMENOrdering Facility: [facility] Address: [address] [place], [place] [address] Performed By: #### 2 4323-8, 35532-0 ####MULBERRY LABORATORYCLIA [id number] [place] [address] [facility] [place] Magnesium SerPl-mCncon 11-15 Magnesium [Mass/Vol] 2.1 mg/dL Normal 1.7-2.3 [facility] Comment on above: Order Comment: Speci men Type: BLOOD SPECIMENOrdering Facility: [facility] Address: [address] [place] [address] Performed By: #### 2 4323-8, ####MULBERRY LABORATORYCLIA [id number] [place] [address] [facility] NURSING PROGon 11-16-2023 NURSING PROG HNO ID: [id number] Author: MISTY ASCENCIO, CARO Service: Nursing Author Type: Registered Nurse Type: Nursing Progress Note Filed: 11/16/2023 14:15 Note Text: PATIENT EDUCATION HEART FAILURE PATIENT NAME: Sandra Schmitz PATIENT LOCATION: [place] [address] [address] SURVIVAL SKILLS: Low Sodium Diet Weight Monitoring [...] rehab post insertion of pacemaker/defib. Follows [facility] ,as well as, [facility]. States she missed her echo [...] (RECOMMENDATION): Cardiology Electronically Signed By: Misty Ascencio [facility] HNO ID: [id number] Author: JESUS PADILLA RT(R) Service: Radiology Author [...] PATIENT PRESENTS WITH AN IMPLANTABLE OR ATTACHED ROLLING CHAIR PUSHER: No RADIOLOGY DEPARTMENT: General X-ray: Exam(s) Completed: Chest X-Ray PERIPHERAL IV DATA: Not applicable SIGNED BY: RT William(R) November 15, 2023 8:26 PM [facility] HNO ID: [id number] Author: MASON VAIL RT(R) Service: Radiology Author [...] PATIENT PRESENTS WITH AN IMPLANTABLE OR ATTACHED ROLLING CHAIR PUSHER: No RADIOLOGY DEPARTMENT: CT; Exam(s) Completed: Abdomen/Pelvis and Brain PERIPHERAL IV DATA: Inpatient: see LDA documentation SIGNED BY: RT Dominique(R) November 15, 2023 8:05 PM Normal [facility] CBC W Auto Differential pane l (Bld)on 11-15-2023 Basophils (Bld) [#/Vol] 0.10 10*3/uL Normal <0.11 [facility] Comment on above: Order Comment: Speci men Type: BLOOD SPECIMENOrdering Facility: [facility] Address: [address] [place] [address] Performed By: #### 5 7021-8 ####KO LABORATORYCLIA [id number] [place] [address] [place] Basophils/100 WBC (Bld) 0.6 % Normal [facility] Comment on above: Order Comment: Speci men Type: BLOOD SPECIMENOrdering Facility: [facility] Address: [address] [place] [address] Performed By: #### 5 7021-8 ####KO LABORATORYCLIA [id number] [place] [address] [place] Differential cell count method Nom (Bld) Auto Normal [facility] Comment on above: Order Comment: Speci men Type: BLOOD SPECIMENOrdering Facility: [facility] Address: [address] [place] [address] Performed By: #### 5 7021-8 ####KO LABORATORYCLIA [id number] [address] [place] Eosinophils (Bld) [#/Vol] 0.22 10*3/uL Normal <0.46 [facility] Comment on above: Order Comment: Speci men Type: BLOOD SPECIMENOrdering Facility: [facility] Address: [address] [place] [address] Performed By: #### 5 7021-8 ####KO LABORATORYCLIA [id number] [address] Eosinophils/100 WBC (Bld) 1.4 % Normal [facility] Comment on above: Order Comment: Speci men Type: BLOOD SPECIMENOrdering Facility: [facility] Address: [address] [place] [address] Performed By: #### 5 7021-8 ####KO LABORATORYCLIA [id number] [address] [place] Erythrocyte distribution width (RBC) [Ratio] 14.3 % Normal 11.5-15.0 [facility] Comment on above: Order Comment: Speci men Type: BLOOD SPECIMENOrdering Facility: [facility] Address: [address] [place] [address] Performed By: #### 5 7021-8 ####KO LABORATORYCLIA [id number] [address] Hematocrit (Bld) [Volume fraction] 43.3 % Normal 36.0-46.0 [facility] Comment on above: Order Comment: Speci men Type: BLOOD SPECIMENOrdering Facility: [facility] Address: [address] [place] [address] Performed By: #### 5 7021-8 ####KO LABORATORYCLIA [id number] [address] [place] Hemoglobin (Bld) [Mass/Vol] 13.8 g/dL Normal 11.5-15.5 [facility] Comment on above: Order Comment: Speci men Type: BLOOD SPECIMENOrdering Facility: [facility] Address: [address] [place] [address] Performed By: #### 5 7021-8 ####KO LABORATORYCLIA [id number] [place] [address] [place] Immature granulocytes (Bld) [#/Vol] 0.25 10*3/uL High <0.10 [facility] Comment on above: Order Comment: Speci men Type: BLOOD SPECIMENOrdering Facility: [facility] Address: [address] [place] [address] Performed By: #### 5 7021-8 ####KO LABORATORYCLIA [id number] [address] STATES [facility] Immature granulocytes/100 WBC (Bld) 1.6 % Normal [facility] Comment on above: Order Comment: Speci men Type: BLOOD SPECIMENOrdering Facility: [facility] Address: [address] [place] [address] Performed By: #### 5 7021-8 ####KO LABORATORYCLIA [id number] [address] [place] Lymphocytes (Bld) [#/Vol] 2.35 10*3/uL Normal 1.00-4.00 [facility] Comment on above: Order Comment: Speci men Type: BLOOD SPECIMENOrdering Facility: [facility] Address: [address] [place] [address] Performed By: #### 5 7021-8 ####KO LABORATORYCLIA [id number] [address] Lymphocytes/100 WBC (Bld) 15.0 % Normal [facility] Comment on above: Order Comment: Speci men Type: BLOOD SPECIMENOrdering Facility: [facility] Address: [address] [place] [address] Performed By: #### 5 7021-8 ####KO LABORATORYCLIA [id number] [place] [address] [place] MCH (RBC) [Entitic mass] 29.3 pg Normal 26.0-34.0 [facility] Comment on above: Order Comment: Speci men Type: BLOOD SPECIMENOrdering Facility: [facility] Address: [address] [place] [address] Performed By: #### 5 7021-8 ####KO LABORATORYCLIA [id number] [place] [id number] [place] MCHC (RBC) [Mass/Vol] 31.9 g/dL Normal 30.5-36.[address] [facility] Comment on above: Order Comment: Speci men Type: BLOOD SPECIMENOrdering Facility: [facility] Address: [address] [place] [address] Performed By: #### 5 7021-8 ####KO LABORATORYCLIA [id number] [place] [address] [place] MCV (RBC) [Entitic vol] 91.9 fL Normal 80.0-100.0 [facility] Comment on above: Order Comment: Speci men Type: BLOOD SPECIMENOrdering Facility: [facility] Address: [address] [place] [address] Performed By: #### 5 7021-8 ####KO LABORATORYCLIA [id number] [place] [address] [place] Monocytes (Bld) [#/Vol] 1.05 10*3/uL High <0.87 [facility] Comment on above: Order Comment: Speci men Type: BLOOD SPECIMENOrdering Facility: [facility] Address: [address] [place] [address] Performed By: #### 5 7021-8 ####KO LABORATORYCLIA [id number] [address] Monocytes/100 WBC (Bld) 6.7 % Normal [facility] Comment on above: Order Comment: Speci men Type: BLOOD SPECIMENOrdering Facility: [facility] Address: [address] [place] [address] Performed By: #### 5 7021-8 ####KO LABORATORYCLIA [id number] [place] [id number] [place] Neutrophils (Bld) [#/Vol] 11.69 10*3/uL High 1.45-7.50 [facility] Comment on above: Order Comment: Speci men Type: BLOOD SPECIMENOrdering Facility: [facility] Address: [address] [place] [address] Performed By: #### 5 7021-8 ####KO LABORATORYCLIA [id number] [address] Neutrophils/100 WBC (Bld) 74.7 % Normal [facility] Comment on above: Order Comment: Speci men Type: BLOOD SPECIMENOrdering Facility: [facility] Address: [address] [place] [address] Performed By: #### 5 7021-8 ####KO LABORATORYCLIA [id number] [place] [address] [place] Nucleated RBC (Bld) [#/Vol] 10*3/uL Normal <0.01 [facility] Comment on above: Order Comment: Speci men Type: BLOOD SPECIMENOrdering Facility: [facility] Address: [address] [place] [address] Performed By: #### 5 7021-8 ####KO LABORATORYCLIA [id number] [address] STATES [facility] Nucleated RBC/100 WBC (Bld) [Ratio] 0.0 /100 WBC Normal [facility] Comment on above: Order Comment: Speci men Type: BLOOD SPECIMENOrdering Facility: [facility] Address: [address] [place] [address] Performed By: #### 5 7021-8 ####KO LABORATORYCLIA [id number] [address] [place] Platelet mean volume (Bld) [Entitic vol] 10.4 fL Normal 9.0-12.7 [facility] Comment on above: Order Comment: Speci men Type: BLOOD SPECIMENOrdering Facility: [facility] Address: [address] [place] [address] Performed By: #### 5 7021-8 ####KO LABORATORYCLIA [id number] [address] [place] Platelets (Bld) [#/Vol] 386 10*3/uL Normal 150-400 [facility] Comment on above: Order Comment: Speci men Type: BLOOD SPECIMENOrdering Facility: [facility] Address: [address] [facility] [place] [address] Performed By: #### 5 7021-8 ####KO LABORATORYCLIA [id number] [place] [address] [place] RBC (Bld) [#/Vol] 4.71 10*6/uL Normal 3.90-5.20 [facility] Comment on above: Order Comment: Speci men Type: BLOOD SPECIMENOrdering Facility: [facility] Address: [address] [place] [address] Performed By: #### 5 7021-8 ####KO LABORATORYCLIA [id number] [place] [address] [place] WBC (Bld) [#/Vol] 15.66 10*3/uL High 3.70-11.00 [facility] Comment on above: Order Comment: Speci men Type: BLOOD SPECIMENOrdering Facility: [facility] Address: [address] [place] [address] Performed By: #### 5 7021-8 ####MULBERRY LABORATORYCLIA [id number] [address] [facility] ABD/PEL WO IVCONon 2023 CT ABD/PEL WO IVCON * * *Final Report* * * DATE OF EXAM: Nov 15 2023 8:16PM [facility] 0531 - CT ABD/PEL WO IVCON / [...] Additional findings as detailed in the report. Cartographic Aide: PSCB Transcribe Date/Time: Nov 15 2023 8:42P Dictated by : PATRICIA GARCÍA MD This examination was interpreted and the report reviewed and electronically signed by: PATRICIA GARCÍA MD on Nov 15 2023 8:44PM EST [id number] [facility] CT BRAIN WO IVCONon 11-15-19 CT BRAIN WO IVCON * * *Final Report* * * DATE OF EXAM: Nov 15 2023 8:16PM [facility] 0504 - CT BRAIN WO IVCON / [...] parenchymal volume loss. Additional findings as detailed. Cartographic Aide: KEYANA Transcribe Date/Time: Nov 15 2023 8:44P Dictated by : PATRICIA GARCÍA MD This examination was interpreted and the report reviewed and electronically signed by: PATRICIA GARCÍA MD on Nov 15 2023 8:46PM EST [id number] Normal [facility] Comprehensive metabolic 2000 panelon 11-15-2023 Albumin [Mass/Vol] 3.9 g/dL Normal 3.9-4.9 [facility] Comment on above: Order Comment: Lenard jesus Type: BLOOD SPECIMENOrdering Facility: [facility] Address: [address] [place] [address] Performed By: #### 2 4323-8, 3040-3, 94372-3, 28106-1, [id number] ####MULBERRY LABORATORYCLIA [id number] [place] [address] [place] ALP [Catalytic activity/Vol] 64 U/L Normal 34-123 [facility] Comment on above: Order Comment: Lenard jesus Type: BLOOD SPECIMENOrdering Facility: [facility] Address: [address] [place] [address] Performed By: #### 2 4323-8, 3040-3, 66573-5, 61916-1, [id number] ####MULBERRY LABORATORYCLIA [id number] [place] [id number] [place] ALT [Catalytic activity/Vol] 14 U/L Normal 7-38 [facility] Comment on above: Order Comment: Lenard jesus Type: BLOOD SPECIMENOrdering Facility: [facility] Address: [address] [place] [address] Performed By: #### 2 4323-8, 3040-3, 17902-5, 60053-6, [id number] ####MULBERRY LABORATORYCLIA [id number] [place] [id number] [place] Anion gap [Moles/Vol] 11 mmol/L Normal 8-[address] [facility] Comment on above: Order Comment: Speci men Type: BLOOD SPECIMENOrdering Facility: [facility] Address: [address] [place] [address] Performed By: #### 2 4323-8, 3040-3, 67917-1, 86189-6, [id number] ####MULBERRY LABORATORYCLIA [id number] [place] [address] [place] AST [Catalytic activity/Vol] Normal [facility] Comment on above: Order Comment: Speci men Type: BLOOD SPECIMENOrdering Facility: [facility] Address: [address] [place] [address] Result Comment: Unab le to assay due to interference from hemolysis. Suggest reorder as clinically indicated. Performed By: #### 2 4323-8, 3040-3, 11081-1, 99440-0, [id number] ####MULBERRY LABORATORYCLIA [id number] [place] [address] [place] Bilirubin [Mass/Vol] 0.3 mg/dL Normal 0.2-1.3 [facility] Comment on above: Order Comment: Speci men Type: BLOOD SPECIMENOrdering Facility: [facility] Address: [address] [place] [address] Performed By: #### 2 4323-8, 3040-3, 74058-7, 70031-2, [id number] ####MULBERRY LABORATORYCLIA [id number] [place] [address] [place] Calcium [Mass/Vol] 9.5 mg/dL Normal 8.5-10.2 [facility] Comment on above: Order Comment: Speci men Type: BLOOD SPECIMENOrdering Facility: [facility] Address: [address] [place] [address] Performed By: #### 2 4323-8, 3040-3, 21290-8, 49918-6, [id number] ####MULBERRY LABORATORYCLIA [id number] [place] [address] [place] Chloride [Moles/Vol] 100 mmol/L Normal 98-107 [facility] Comment on above: Order Comment: Specjeffy men Type: BLOOD SPECIMENOrdering Facility: [facility] Address: [address] [place] [address] Performed By: #### 2 4323-8, 3040-3, 50727-9, 64877-3, [id number] ####MULBERRY LABORATORYCLIA [id number] [place] [address] [place] CO2 [Moles/Vol] 28 mmol/L Normal 22-30 [facility] Comment on above: Order Comment: Speci men Type: BLOOD SPECIMENOrdering Facility: [facility] Address: [address] [place], [place] [address] Performed By: #### 2 4323-8, 3040-3, 22300-5, 49865-0, [id number] ####MULBERRY LABORATORYCLIA [id number] [place] [id number] [place] Creatinine [Mass/Vol] 1.94 mg/dL High 0.58-0.[address] [facility] Comment on above: Order Comment: Speci men Type: BLOOD SPECIMENOrdering Facility: [facility] Address: [address] [place], [place] [address] Performed By: #### 2 4323-8, 3040-3, 93658-8, 11843-0, [id number] ####MULBERRY LABORATORYCLIA [id number] [place] [id number] [facility] Creatinine and Glomerular filtration rate.predicted panel (S/P/Bld) 26 mL/min/1.73m??? Low >=60 [facility] Comment on above: Order Comment: Spec men Type: BLOOD SPECIMENOrdering Facility: [facility] Address: [address] [place], [place] [address] Result Comment: Aaron mated Glomerular Filtration Rate [...] GFR. Performed By: #### 2 4323-8, 3040-3, 87309-2, 33844-0, [id number] ####KO LABORATORYCLIA [id number] [place] [address] [place] Glucose [Mass/Vol] 147 mg/dL High 74-99 [facility] Comment on above: Order Comment: Lenard jesus Type: BLOOD SPECIMENOrdering Facility: [facility] Address: [address] [place] [address] Result Comment: The [place] Diabetes Association (ADA) provides guidance for cutoff [...] Standards of Medical Care in Diabetes 2016, [place] Diabetes Association. Diabetes Care. 2016.39(Suppl 1). Performed By: #### 2 4323-8, 3040-3, 13667-5, 18915-7, [id number] ####KO LABORATORYCLIA [id number] [place] [id number] [place] Potassium [Moles/Vol] 4.5 mmol/L Normal 3.7-5.[address] [facility] Comment on above: Order Comment: Lenard jesus Type: BLOOD SPECIMENOrdering Facility: [facility] Address: [address] [place] [id number] Performed By: #### 2 4323-8, 3040-3, 48082-6, 14074-3, [id number] ####MULBERRY LABORATORYCLIA [id number] [place] [id number] [place] Protein [Mass/Vol] 7.5 g/dL Normal 6.3-8.0 [facility] Comment on above: Order Comment: Lenard jesus Type: BLOOD SPECIMENOrdering Facility: [facility] Address: [address] [place] [address] Performed By: #### 2 4323-8, 3040-3, 39967-5, 76592-1, [id number] ####KO LABORATORYCLIA [id number] [address] STATES [facility] Sodium [Moles/Vol] 139 mmol/L Normal 136-144 [facility] Comment on above: Order Comment: Speci men Type: BLOOD SPECIMENOrdering Facility: [facility] Address: [address] [place], [place] [address] Performed By: #### 2 4323-8, 3040-3, 55699-8, 27865-5, [id number] ####KO LABORATORYCLIA [id number] [address] Urea nitrogen [Mass/Vol] 50 mg/dL High 7-21 [facility] Comment on above: Order Comment: Speci men Type: BLOOD SPECIMENOrdering Facility: [facility] Address: [address] [place] [address] Performed By: #### 2 4323-8, 3040-3, 48013-6, 03757-3, [id number] ####MULBERRY LABORATORYCLIA [id number] [address] D dimer FEU PPP-mCncon 11-14 Fibrin D-dimer FEU (PPP) [Mass/Vol] 620 ng/mL FEU High <500 [facility] Comment on above: Order Comment: Speci men Type: BLOOD SPECIMENOrdering Facility: [facility] Address: [address] [place] [address] Performed By: #### 4 8065-7, 31388-4, 88992-3 ####MULBERRY LABORATORYCLIA [id number] [place] [id number] [facility] ED NOTEon 11-15-2023 ED NOTE HNO ID: [id number] Author: CHALO CHAIDEZ, CARO Service: ? Author Type: Registered Nurse Type: ED Notes Filed: 11/15/2023 22:21 Note Text: Verbal phone report was provided to Josette on . The pt remains stable for transport to the floor for admission. NAD noted at this time. Belongings list was completed. Medic to transport. [facility] ED NOTE HNO ID: [id number] Author: CHALO CHAIDEZ RN Service: ? Author Type: Registered Nurse Type: ED Notes Filed: 11/15/2023 22:07 Note Text: Heads up called to -South charge nurse (Spoke with Singh) [facility] ED PROV NOTEon 11-15-2023 ED PROV NOTE HNO ID: [id number] Author: ISIAH CHOI MD Service: Emergency Medicine [...] on chronic systolic CHF (congestive heart failure) ([facility]) 05/03/2020 Aspiration pneumonia ([facility]) 05/30/2020 Chest pain 05/03/2020 Chest pressure 01/23/2013 Chronic diastolic congestive heart failure (HCC) 02/14/2021 Clostridium difficile diarrhea 09/28/2020 Complete uterovaginal prolapse Cystocele, midline Essential hypertension 06/14/2020 Homozygous Factor V Leiden mutation ([facility]) 05/03/2020 Hypothyroidism IBS (irritable bowel syndrome) [...] rub. No gallop. (more content not included)... [facility] EKGon 11-15-2023 Electrocardiogram Ventricular Rate : 5 9 BPM Atrial Rate : 59 BPM P-R Interval : 114 ms QRS Duration : 122 ms Q-T Interval : 490 ms QTC Calculation(Bazett) : 485 ms Calculated P Quartzsite : 27 degrees Calculated R Quartzsite : -60 degrees Calculated T Quartzsite : 78 degrees Atrial-sensed ventricular-paced rhythm ABNORMAL ECG When compared with selected ECG of 10-Jul-2023 07:12, ELECTRONIC VENTRICULAR PACEMAKER HAS REPLACED SINUS RHYTHM no STEMI Confirmed by MD CHOI EDWARD.S ([id number]) on 11/15/2023 7:34:54 PM NAME : SANDRA SCHMITZ PID : [id number] : 1945 Gender : Female Race : ORD : Procedure Date : Nov 15 2023 19:27:04 Edit Date : Nov 15 2023 19:34:59 Diagnosis: Atrial-sensed ventricular-paced rhythm ABNORMAL ECG When compared with selected ECG of 10-Jul-2023 07:12, ELECTRONIC VENTRICULAR PACEMAKER HAS REPLACED SINUS RHYTHM no STEMI Confirmed by MD CHOI EDWARD.S ([id number]) on 11/15/2023 7:34:54 PM Test Reason : Location : 1 : ER ED Overread By : MD CHOI EDWARD.S Edited By : MD CHOI EDWARD.Eileen Referred By : , Acquired by : WENCESLAO RN, [facility] FLUABV+SARS-CoV-2+RSV Pnl Re sp PRECIOUS+probeon 11-15-2023 FLUABV+SARS-CoV-2+RSV Pnl Resp PRECIOUS+probe COVID 19 RESULT: Not detected The method used is RT-PCR or an equivalent NAAT method. Reference Range(the expected result in uninfected individuals): Not detected INFLUENZA A PCR: Not detected INFLUENZA B PCR: Not detected RSV PCR: Not detected Normal [facility] Comment on above: Performed By: #### 9 5941-1 ####MULBERRY LABORATORYCLIA [id number] [place] [address] [place] Fibrin D-dimer FEU (PPP) [Ma ss/Vol]on 11-15-2023 D DIMER AGE-RELATED CUTOFF 770 ng/mL FEU Normal [facility] Comment on above: Order Comment: Lenard jesus Type: BLOOD SPECIMENOrdering Facility: [facility] Address: [address] [place] [address] Performed By: #### 4 8065-7, 96913-1, 81363-1 ####MULBERRY LABORATORYCLIA [id number] [address] [place] Gas and Carbon monoxide pane l (BldV)on 11-15-2023 Base excess Calc (BldV) [Moles/Vol] 2 mmol/L Normal 0-2 [facility] Comment on above: Order Comment: Lenard jesus Type: VENOUS BLOOD SPECIMENOrdering Facility: [facility] Address: [address] [place] [address] Performed By: #### 2 4344-4 ####MULBERRY RESPIRATORYCLIA [id number] [facility] [id number] [place] [id number] Carboxyhemoglobin (BldV) [Mass fraction] <1.0 Normal 0.0-2.0 [facility] Comment on above: Order Comment: Lenard jesus Type: VENOUS BLOOD SPECIMENOrdering Facility: [facility] Address: [address] [place] [address] Result Comment: Carb oxyhemoglobin Reference Range for Smokers: 2.0-8.0% Performed By: #### 2 4344-4 ####MULBERRY RESPIRATORYCLIA [id number] [facility]OS[facility] [id number] [address] [address] CO2 (BldV) [Partial pressure] 46 mm[Hg] Normal 42-55 [facility] Comment on above: Order Comment: Speci men Type: VENOUS BLOOD SPECIMENOrdering Facility: [facility] Address: [address] [place] [address] Performed By: #### 2 4344-4 ####KO RESPIRATORYCLIA [id number] [facility] [id number] [address] [address] CO2 adjusted to patient's actual temperature (BldV) [Partial pressure] Normal [facility] Comment on above: Order Comment: Speci men Type: VENOUS BLOOD SPECIMENOrdering Facility: [facility] Address: [address] [place] [address] Performed By: #### 2 4344-4 ####[facility] RESPIRATORYNORTHWESTERN MED[facility] [id number] [facility]OSP[facility]AT[facility] [id number] [address] [address] HCO3 (Bld) [Moles/Vol] 27 mmol/L Normal 24-28 [facility] Comment on above: Order Comment: Speci men Type: VENOUS BLOOD SPECIMENOrdering Facility: [facility] Address: [address] [place] [address] Performed By: #### 2 4344-4 ####[facility] RESPIRATORYNORTHWESTERN MEDICAL CENTER [id number] [facility]OS[facility] [id number] [address] [address] Hemoglobin (Bld) [Mass/Vol] 13.0 g/dL Normal 11.5-15.5 [facility] Comment on above: Order Comment: Speci men Type: VENOUS BLOOD SPECIMENOrdering Facility: [facility] Address: [address] [place] [address] Performed By: #### 2 4344-4 ####[facility] RESPIRATORYNORTHWESTERN MEDICAL CENTER [id number] [facility]OS[facility] RES[facility]IRAT[facility] [id number] [address] Lactate [Moles/Vol] 1.6 mmol/L Normal 0.5-2.2 [facility] Comment on above: Order Comment: Speci men Type: VENOUS BLOOD SPECIMENOrdering Facility: [facility] Address: [address] [place] [address] Performed By: #### 2 4344-4 ####KO RESPIRATORYCLIA [id number] [facility] RES[facility]IRAT[facility] [id number] [address] [address] Methemoglobin (Bld) [Mass fraction] % Normal 0.0-1.5 [facility] Comment on above: Order Comment: Speci men Type: VENOUS BLOOD SPECIMENOrdering Facility: [facility] Address: [address] [place] [id number] Performed By: #### 2 4344-4 ####KO RESPIRATORYCLIA [id number] [facility]OS[facility] RESPIRATORY [id number] [address] O2 THERAPY RA=Room Air [facility] Comment on above: Order Comment: Speci men Type: VENOUS BLOOD SPECIMENOrdering Facility: [facility] Address: [address] [place] [address] Performed By: #### 2 4344-4 ####MULBERRY RESPIRATORYIA [id number] [facility]OSP[facility] RESPIRATORY [id number] [address] [address] Oxygen (BldV) [Partial pressure] 42 mm[Hg] Normal 35-45 [facility] Comment on above: Order Comment: Speci men Type: VENOUS BLOOD SPECIMENOrdering Facility: [facility] Address: [address] [place] [id number] Performed By: #### 2 4344-4 ####KO RESPIRATORYIA [id number] [facility]OS[facility] RESPIRATORY [id number] [address] [address] Oxygen adjusted to patient's actual temperature (BldV) [Partial pressure] Normal [facility] Comment on above: Order Comment: Speci men Type: VENOUS BLOOD SPECIMENOrdering Facility: [facility] Address: [address] [place] [address] Performed By: #### 2 4344-4 ####KO RESPIRATORYIA [id number] [facility]OSP[facility] RESPIRATORY [id number] [address] [address] Oxygen saturation in Venous blood 74 % Normal 60-85 [facility] Comment on above: Order Comment: Speci men Type: VENOUS BLOOD SPECIMENOrdering Facility: [facility] Address: [address] [place] [address] Performed By: #### 2 4344-4 ####KO RESPIRATORYCLIA [id number] [facility] [id number] [address] [address] Oxyhemoglobin (BldV) [Mass fraction] 73 % Normal [facility] Comment on above: Order Comment: Speci men Type: VENOUS BLOOD SPECIMENOrdering Facility: [facility] Address: [address] [place] [address] Performed By: #### 2 4344-4 ####KO RESPIRATORYCLIA [id number] [facility] RES[facility]IRAT[facility] [id number] [address] [address] pH (BldV) 7.38 [pH] Normal 7.32-7.42 [facility] Comment on above: Order Comment: Speci men Type: VENOUS BLOOD SPECIMENOrdering Facility: [facility] Address: [address] [place] [address] Performed By: #### 2 4344-4 ####KO RESPIRATORYIA [id number] [facility] RESPIRATORY [id number] [address] [address] pH adjusted to patient's actual temperature (BldV) Normal [facility] Comment on above: Order Comment: Speci men Type: VENOUS BLOOD SPECIMENOrdering Facility: [facility] Address: [address] [place] [address] Performed By: #### 2 4344-4 ####KO RESPIRATORYCLIA [id number] [facility] RESPIRAT[facility] [id number] [address] [address] Potassium [Moles/Vol] 3.8 mmol/L Normal 3.5-5.[address] [facility] Comment on above: Order Comment: Speci men Type: VENOUS BLOOD SPECIMENOrdering Facility: [facility] Address: [address] [place] [address] Performed By: #### 2 4344-4 ####KO RESPIRATORYCLIA [id number] [facility] RES[facility]IRAT[facility] [id number] [address] [place] [address] HIGH SENSITIVITY TROPONIN T (INITIAL)on 11-15-2023 Troponin T.cardiac High sensitivity method [Mass/Vol] 31 ng/L High <12 [facility] Comment on above: Order Comment: Speci men Type: BLOOD SPECIMENOrdering Facility: [facility] Address: [address] [place] [address] Performed By: #### 2 4323-8, 3040-3, 24270-9, 64472-8, [id number] ####MULBERRY LABORATORYCLIA [id number] [address] HIGH SENSITIVITY TROPONIN T (SECOND)on 11-15-2023 Troponin T.cardiac High sensitivity method [Mass/Vol] 25 ng/L High <[address] [place] [address] Comment on above: Order Comment: Speci men Type: BLOOD SPECIMENOrdering Facility: [facility] Address: [address] [place] [address] Performed By: #### 3 3959-8, [id number] ####MULBERRY LABORATORYCLIA [id number] [address] HIGH SENSITIVITY TROPONIN T (THIRD) 3 HRS AFTER INITIALon 11-15-2023 Troponin T.cardiac High sensitivity method [Mass/Vol] 23 ng/L High <[address] [place] [address] Comment on above: Order Comment: Speci men Type: BLOOD SPECIMENOrdering Facility: [facility] Address: [address] [place] [address] Performed By: #### 3 016-3, [id number] ####MULBERRY LABORATORYCLIA [id number] [place] [id number] [place] HISTORY PHYSICALon HISTORY PHYSICAL HNO ID: [id number] Author: ADDI BRICE DO Service: Hospital Medicine Author Type: Physician Type: H&P Filed: 11/16/2023 00:14 Note Text: DEPARTMENT OF HOSPITAL MEDICINE HISTORY AND PHYSICAL EXAM SERVICE DATE: 11/16/2023 SERVICE TIME: 12:14 AM Primary Care Physician: Mandeep Houser DO NIGHT COVERAGE: [place] [facility] [place] [phone] for any issues or concerns Subjective CHIEF COMPLAINT: Syncope (Having abd cramps was sitting in the bathroom when started breaking out in a sweat and blacking out. ) HPI: This is a 78 year old female with PMH of non ischemic cardiomyopathy, HFrEF (2019, 07-12-23: EF 26%), 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 (July 20, 2023, [employer]), non occlusive CAD ([facility]: ), IBS, Factor V Leiden Syndrome, HTN, [...] 15.66 (*) Abs Neut 11.69 (*) Abs Reeves 1.05 (*) Abs Immature Gran 0.25 (*) [...] laboratory APTT reagent in use throughout the [facility]. HIGH SENSITIVITY TROPONIN T (SECOND) - Abnormal; [...] (more content not included)... Normal [facility] Lipase SerPl-cCncon 11-15-19 24 Lipase [Catalytic activity/Vol] 42 U/L Normal 16-61 [facility] Comment on above: Order Comment: Lenard jesus Type: BLOOD SPECIMENOrdering Facility: [facility] Address: [address] [place] [address] Performed By: #### 2 4323-8, 3040-3, 41247-4, 31441-4, [id number] ####MULBERRY LABORATORYCLIA [id number] [address] [place] Magnesium [facility]-ncon 11-14 Magnesium [Mass/Vol] 2.2 mg/dL Normal 1.7-2.3 [facility] Comment on above: Order Comment: Lenard jesus Type: BLOOD SPECIMENOrdering Facility: [facility] Address: [address] [place] [address] Performed By: #### 2 4323-8, 3040-3, 34356-5, 93222-3, [id number] ####MULBERRY LABORATORYCLIA [id number] [address] [place] [facility]14 Natriuretic peptide.B prohormone N-Terminal [Mass/Vol] 1221 pg/mL High <450 [facility] Comment on above: Order Comment: Lenard jesus Type: BLOOD SPECIMENOrdering Facility: [facility] Address: [address] [place] [address] Performed By: #### 2 4323-8, 3040-3, 35576-0, 87746-3, [id number] ####MULBERRY LABORATORYCLIA [id number] [address] [place] PT panel Coag (PPP)on 2023 INR Coag (PPP) [Relative time] 0.9 {INR} Normal 0.9-1.3 [facility] Comment on above: Order Comment: Lenard jesus Type: BLOOD SPECIMENOrdering Facility: [facility] Address: [address] [place] [address] Result Comment: Sarah min K Antagonist (VKA) Therapeutic Range: INR 2 to 3 (Target INR of 2.5) Note: For patients treated with VKA drugs, such as warfarin, the [place] [employer] 2012 Guideline recommends [...] Chest 2012, 141:7S-47S Becca RA, et al. [facility] 2017, 70: 252-289 Performed By: #### 4 8065-7, 05755-8, 04333-5 ####MULBERRY LABORATORYCLIA [id number] [place] [address] [place] PT Coag (PPP) [Time] 10.2 s Normal 9.7-13.0 [facility] Comment on above: Order Comment: Lenard [facility] Type: BLOOD SPECIMENOrdering Facility: [facility] Address: [address] [place] [address] Performed By: #### 4 8065-7, 55460-3, 34661-0 ####MULBERRY LABORATORYCLIA [id number] [place] [id number] [place] Procalcitonin SerPl-mCncon 0 11-15-2023 Procalcitonin [Mass/Vol] 0.07 ng/mL Normal <0.09 [facility] Comment on above: Order Comment: Lenard jesus Type: BLOOD SPECIMENOrdering Facility: [facility] Address: [address] [place] [address] Result Comment: For a guided interpretation of test results, please visit the Change in Procalcitonin Calculator, [email or web address]. Performed By: #### 3 3959-8, [id number] ####KO LABORATORYCLIA [id number] [address] TSH SerPl-aCncon 11-15-2023 TSH Qn 1.470 m[IU]/L Normal 0.270-4.200 [facility] Comment on above: Order Comment: Speci men Type: BLOOD SPECIMENOrdering Facility: [facility] Address: [address] [place] [address] Performed By: #### 3 016-3, [id number] ####KO LABORATORYCLIA [id number] [address] Urinalysis complete panel (U )on 11-15-2023 Bilirubin Ql (U) Negative Normal Negative [facility] Comment on above: Order Comment: Speci men Type: URINE SPECIMENOrdering Facility: [facility] Address: [address] [place] [address] Performed By: #### 2 4356-8 ####KO LABORATORYCLIA [id number] [address] Clarity (Unsp spec) Clear Normal Clear [facility] Comment on above: Order Comment: Speci men Type: URINE SPECIMENOrdering Facility: [facility] Address: [address] [place] [address] Performed By: #### 2 4356-8 ####KO LABORATORYCLIA [id number] [address] Color (U) Yellow Normal Yellow [facility] Comment on above: Order Comment: Speci men Type: URINE SPECIMENOrdering Facility: [facility] Address: [address] [place] [address] Performed By: #### 2 4356-8 ####KO LABORATORYCLIA [id number] [address] Epithelial cells LM.HPF (Urine sed) [#/Area] Few Normal [facility] Comment on above: Order Comment: Speci men Type: URINE SPECIMENOrdering Facility: [facility] Address: [address] [place] [address] Performed By: #### 2 4356-8 ####KO LABORATORYCLIA [id number] [address] Glucose Test strip (U) [Mass/Vol] Negative Normal Negative [facility] Comment on above: Order Comment: Speci men Type: URINE SPECIMENOrdering Facility: [facility] Address: [address] [place] [address] Performed By: #### 2 4356-8 ####KO LABORATORYCLIA [id number] [place] [address] [place] Hemoglobin Ql (U) Negative Normal Negative [facility] Comment on above: Order Comment: Speci men Type: URINE SPECIMENOrdering Facility: [facility] Address: [address] [place] [address] Performed By: #### 2 4356-8 ####KO LABORATORYCLIA [id number] [address] [place] Ketones Ql (U) Negative Normal Negative [facility] Comment on above: Order Comment: Speci men Type: URINE SPECIMENOrdering Facility: [facility] Address: [address] [place] [address] Performed By: #### 2 4356-8 ####KO LABORATORYCLIA [id number] [address] Leukocyte esterase Test strip Ql (U) Negative Normal Negative [facility] Comment on above: Order Comment: Speci men Type: URINE SPECIMENOrdering Facility: [facility] Address: [address] [place] [address] Performed By: #### 2 4356-8 ####KO LABORATORYCLIA [id number] [address] [place] Nitrite Ql (U) Negative Normal Negative [facility] Comment on above: Order Comment: Speci men Type: URINE SPECIMENOrdering Facility: [facility] Address: [address] [place] [address] Performed By: #### 2 4356-8 ####KO LABORATORYCLIA [id number] [address] pH (U) 6.0 [pH] Normal 5.0-8.0 [facility] Comment on above: Order Comment: Speci men Type: URINE SPECIMENOrdering Facility: [facility] Address: [address] [place] [address] Performed By: #### 2 4356-8 ####KO LABORATORYCLIA [id number] [address] [place] Protein (U) [Mass/Vol] Negative Normal Negative [facility] Comment on above: Order Comment: Speci men Type: URINE SPECIMENOrdering Facility: [facility] Address: [address] [place] [address] Performed By: #### 2 4356-8 ####MULBERRY LABORATORYCLIA [id number] [address] [place] RBC LM.HPF (Urine sed) [#/Area] 0-3 /HPF Normal 0-3 /HPF [facility] Comment on above: Order Comment: Speci men Type: URINE SPECIMENOrdering Facility: [facility] Address: [address] [place] [address] Performed By: #### 2 4356-8 ####MULBERRY LABORATORYCLIA [id number] [address] Specific gravity (U) [Rel density] 1.020 Normal 1.005-1.030 [facility] Comment on above: Order Comment: Speci men Type: URINE SPECIMENOrdering Facility: [facility] Address: [address] [place] [address] Performed By: #### 2 4356-8 ####KO LABORATORYCLIA [id number] [address] Urobilinogen Ql (U) 0.2 EU/dL Normal 0.2-1.0 EU/dL [facility] Comment on above: Order Comment: Speci men Type: URINE SPECIMENOrdering Facility: [facility] Address: [address] [place] [address] Performed By: #### 2 4356-8 ####KO LABORATORYCLIA [id number] [place] [address] [place] WBC LM.HPF (Urine sed) [#/Area] 0-5 /HPF Normal 0-5 /HPF [facility] Comment on above: Order Comment: Speci men Type: URINE SPECIMENOrdering Facility: [facility] Address: [address] [place] [address] Performed By: #### 2 4356-8 ####MULBERRY LABORATORYCLIA [id number] [place] [address] [place] XR CHEST 1V [...] osseous abnormality. IMPRESSION: No acute cardiopulmonary disease. Cartographic Aide: PSCMykel Transcribe Date/Time: Nov 15 2023 8:27P Dictated by : OLIVERIO NOLASCO MD This examination was interpreted and the report reviewed and electronically signed by: OLIVERIO NOLASCO MD on Nov 15 2023 8:31PM EST [id number] Normal [facility] aPTT PPPon 11-15-2023 aPTT Coag (PPP) [Time] 22.7 s Low 23.0-32.4 [facility] Comment on above: Order Comment: Speci men Type: BLOOD SPECIMENOrdering Facility: [facility] Address: [address] [place] [address] Performed By: #### 4 8065-7, 20550-7, 44588-8 ####MULBERRY LABORATORYCLIA [id number] [place] [address] [place] [address] BRAIN WO IVCONon 11-01-[address] BRAIN WO IVCON * * *Final Report* * * DATE OF EXAM: Nov 01 2023 3:05PM [facility] 0504 - CT BRAIN WO IVCON [...] should be made on a neurological basis. Cartographic Aide: PSCB Transcribe Date/Time: Nov 01 2023 3:06P Dictated by : ERNESTO KLEIN MD This examination was interpreted and the report reviewed and electronically signed by: ERNESTO KLEIN MD on Nov 01 2023 3:11PM EST [id number] Normal [facility] CT Head WO contraston 2023 IMPRESSION: No CT evidence of acute intracranial abnormality/hemorrhage Mild degree supratentorial chronic microvascular ischemic changes. Axial image 10, focal area decreased attenuation right insular cortex most consistent with chronic microvascular ischemic changes. Decision to perform follow-up and/or further imaging should be made on a neurological basis. Cartographic Aide: KEYANA Transcribe Date/Time: Nov 01 2023 3:06P Dictated by : ERNESTO KLEIN MD This examination was interpreted and the report reviewed and electronically signed by: ERNESTO KLEIN MD on Nov 01 2023 3:11PM EST [facility] * * *Final Report* * * DATE OF EXAM: Nov 01 2023 3:05PM [facility] 0504 - CT BRAIN WO IVCON [...] base and imaged soft tissues are unremarkable. [facility] Provider, [facility]23 * * *Final Report* * * DATE OF EXAM: Nov 01 2023 3:05PM [facility] 0504 - CT BRAIN WO IVCON [...] should be made on a neurological basis. Cartographic Aide: KEYANA Transcribe Date/Time: Nov 01 2023 3:06P Dictated by : ERNESTO KLEIN MD This examination was interpreted and the report reviewed and electronically signed by: ERNESTO KLEIN MD on Nov 01 2023 3:11PM EST [facility] Radiology Study observation (narrative) [facility] CT Head WO contrastOrdered B y: [facility] Provider on 11-01-2023 [facility] CBC W Auto Differential pane l (Bld)on 10-31-2023 Basophils (Bld) [#/Vol] 0.13 10*3/uL [facility] Basophils/100 WBC (Bld) 1.2 % [facility] Differential cell count method Nom (Bld) Auto [facility] Eosinophils (Bld) [#/Vol] 0.34 10*3/uL NINF [facility] Eosinophils/100 WBC (Bld) 3.1 % [facility] Erythrocyte distribution width (RBC) [Ratio] 13.5 % 11.5 - 15.0 % [facility] Hematocrit (Bld) [Volume fraction] 41.9 % 36.0 - 46.0 % [facility] Hemoglobin (Bld) [Mass/Vol] 13.0 g/dL 11.5 - 15.5 g/dL [facility] Immature granulocytes (Bld) [#/Vol] 0.07 10*3/uL [facility] Immature granulocytes/100 WBC (Bld) 0.6 % [facility] Interpretation and review of laboratory results Abnormal [facility] Lymphocytes (Bld) [#/Vol] 4.05 10*3/uL High [facility] [place] Lymphocytes/100 WBC (Bld) 37.4 % [facility] [place] MCH (RBC) [Entitic mass] 28.8 pg 26.0 - 34.0 pg [facility] [place] MCHC (RBC) [Mass/Vol] 31.0 g/dL 30.5 - 36.0 g/dL [facility] [place] MCV (RBC) [Entitic vol] 92.7 fL 80.0 - 100.0 fL [facility] [place] Monocytes (Bld) [#/Vol] 0.99 10*3/uL [facility] Monocytes/100 WBC (Bld) 9.1 % [facility] [place] Neutrophils (Bld) [#/Vol] 5.24 10*3/uL [facility] [place] Neutrophils/100 WBC (Bld) 48.6 % [facility] [place] Nucleated RBC (Bld) [#/Vol] [facility] Nucleated RBC/100 WBC (Bld) [Ratio] 0.0 % /100 WBC [facility] [place] Platelet mean volume (Bld) [Entitic vol] 10.4 fL 9.0 - 12.7 fL [facility] [place] Platelets (Bld) [#/Vol] 326 10*3/uL [facility] [place] RBC (Bld) [#/Vol] 4.52 10*6/uL 3.90 - 5.2 0 m/uL [facility] [place] WBC (Bld) [#/Vol] 10.82 10*3/uL [facility] CBC W Auto Differential pane l (Bld)on 10-15-2023 Basophils (Bld) [#/Vol] 0.11 10*3/uL High NINF [facility] [place] Basophils/100 WBC (Bld) 1.1 % [facility] [place] Differential cell count method Nom (Bld) Auto [facility] [place] Eosinophils (Bld) [#/Vol] 0.30 10*3/uL [facility] [place] Eosinophils/100 WBC (Bld) 3.0 % [facility] [place] Erythrocyte distribution width (RBC) [Ratio] 13.4 % 11.5 - 15.0 % [facility] [place] Hematocrit (Bld) [Volume fraction] 40.6 % 36.0 - 46.0 % [facility] [place] Hemoglobin (Bld) [Mass/Vol] 12.7 g/dL 11.5 - 15.5 g/dL [facility] [place] Immature granulocytes (Bld) [#/Vol] 0.07 10*3/uL [facility] [place] Immature granulocytes/100 WBC (Bld) 0.7 % [facility] [place] Interpretation and review of laboratory results Abnormal [facility] [place] Lymphocytes (Bld) [#/Vol] 3.14 10*3/uL [facility] [place] Lymphocytes/100 WBC (Bld) 31.7 % [facility] [place] MCH (RBC) [Entitic mass] 29.4 pg 26.0 - 34.0 pg [facility] [place] MCHC (RBC) [Mass/Vol] 31.3 g/dL 30.5 - 36.0 g/dL [facility] [place] MCV (RBC) [Entitic vol] 94.0 fL 80.0 - 100.0 fL [facility] [place] Monocytes (Bld) [#/Vol] 0.72 10*3/uL [facility] Monocytes/100 WBC (Bld) 7.3 % [facility] [place] Neutrophils (Bld) [#/Vol] 5.55 10*3/uL [facility] [place] Neutrophils/100 WBC (Bld) 56.2 % [facility] [place] Nucleated RBC (Bld) [#/Vol] [facility] [place] Nucleated RBC/100 WBC (Bld) [Ratio] 0.0 % /100 WBC [facility] [place] Platelet mean volume (Bld) [Entitic vol] 10.4 fL 9.0 - 12.7 fL [facility] [place] Platelets (Bld) [#/Vol] 353 10*3/uL [facility] [place] RBC (Bld) [#/Vol] 4.32 10*6/uL 3.90 - 5.2 0 m/uL [facility] [place] WBC (Bld) [#/Vol] 9.89 10*3/uL [facility] ICD REMOTE CHECKon 4 AV Delay Adaptive Paced Minimum (ms) 130 ms [facility] [place] AV Delay Adaptive Sensed Minimum (ms) 80 ms [facility] [place] AV Delay Adaptive Status ENABLED [facility] [place] Battery Voltage 3.09 V [facility] [place] Luis LV Pacing Amplitude (volts) 1.0 V [facility] [place] Luis LV Pacing Polarity BI [facility] [place] Luis LV Pacing Pulse Width (ms) 0.4 ms [facility] [place] Luis RA Pacing Amplitude (volts) 3.5 V [facility] [place] Luis RA Pacing Polarity BI [facility] [place] Luis RA Pacing Pulse Width (ms) 0.4 ms [facility] [place] Luis RA Sensing Amplitude (mvolts) 0.3 mV [facility] [place] Luis RA Sensing Blanking Period (ms) 150 ms [facility] [place] Luis RA Sensing Polarity BI [facility] [place] Luis RA Sensing Refractory Period (ms) Auto [facility] [place] Luis RV Pacing Amplitude (volts) 3.5 V [facility] [place] Luis RV Pacing Polarity BI [facility] [place] Luis RV Pacing Pulse Width (ms) 0.4 ms [facility] [place] Luis RV Sensing Amplitude (mvolts) 0.3 mV [facility] [place] Luis RV Sensing Blanking Period (ms) 230 ms [facility] [place] Luis RV Sensing Polarity BI [facility] [place] Detection Configuration (Vent) 1 - Zone [facility] [place] ICD AFIB DetectionStatus ENABLED [facility] [place] ICD ATAF DetectionInterval ms 350 ms [facility] [place] ICD ATAF DetectionStatus ENABLED [facility] [place] ICD FastVT DetectionStatus DISABLED [facility] [place] ICD-ADLRATE_BPM 95 {beats}/min [facility] ICD-AMS EPISODES 171 {beats}/min [facility] ICD-ATP Episodes (Vent) 0 [facility] [place] ICD-ATRIALFIBRILLATION 0 Cl [facility] ICD-Device Mfg MDT [facility] [place] ICD-LEADIMPEDANCEATRIA L 589 ohm [facility] [place] ICD-Percent Pacing (Atrial) 0.07 % [facility] [place] ICD-Percent Pacing (Vent) 6.67 % [facility] [place] ICD-PMT Intervention Enabled [facility] ICD-PVC Intervention Enabled [facility] ICD-Rate Modulation Acceleration Reaction 30 s [facility] [place] ICD-Rate Modulation Deceleration Exercise [facility] [place] ICD-Rate Modulation [place] 3 [facility] [place] ICD-Rate Modulation Threshold Low [facility] [place] ICD-Shocks Aborted (Vent) 0 [facility] [place] [id number] 0 [facility] ICD-SHOCKSABORTED 0 [facility] ICD-SHOCKSDELIVEREDVEN TRICULAR 0 [facility] [place] ICD-Ventricular Fibrillation 0 [facility] [place] ICD-VVDELAY_MS 0 ms [facility] [place] Lead Impedance (LV) 437 ohm [facility] Lead Impedance (RV) 380 ohm [facility] Lead Impedance High Voltage 73 ohm [facility] [place] Lead1 Mfg MDT [facility] [place] Lead2 Mfg MDT [facility] [place] Lead3 Mfg MDT [facility] [place] Location LV [facility] [place] Location RA [facility] [place] Location RV [facility] [place] Lower Rate (bpm) 45 {beats}/min [facility] LV PACING % 97.85 % [facility] [place] Max Sensor Rate (bpm) 120 {beats}/min [facility] [place] MDT_PROG_TACHY_ZONE_DE TECTIONS_STATUS ENABLED [facility] [place] Model [id number] [place] XT HF Quad DISTRICT FIRE MANAGEMENT OFFICER-D MRI [facility] [place] Model 4798 Attain Stabilit y Quad [facility] Model 5076 CapSureFix Novus [facility] Model 6935M Sprint Quattro Secure S [facility] [place] Pacing Mode DDD [facility] [place] Serial Number [id number] [facility] [place] Serial Number [id number] [facility] [place] Serial Number [id number] [facility] [place] Serial Number [id number] [facility] [place] Test Charge Energy 40.0 J [facility] Test Charge Time 0 s [facility] Therapy Status (Vent) Enabled [facility] Thresh LV Capture Amplitude (volts) 0.375 V [facility] [place] Thresh LV Capture Duration (ms) 0.4 ms [facility] [place] Thresh RA Capture Amplitude (volts) 0.375 V [facility] [place] Thresh RA Capture Duration (ms) 0.4 ms [facility] [place] Thresh RA Sensing Amplitude (mvolts) 5.0 mV [facility] [place] Thresh RV Capture Amplitude (VOLTS) 0.625 V [facility] [place] Thresh RV Capture Duration (MS) 0.4 ms [facility] [place] Thresh RV Sensing Amplitude (MVOLTS) 24.5 mV [facility] [place] Tracking Rate (bpm) 130 {beats}/min [facility] [place] VF Zone Detection Interval 320 ms [facility] [place] VF Zone Therapy Configuration 1 ATP(s) + 6 Shock(s) [facility] [place] 09/28/2023 Formattin g of this note might [...] pacing <0.1%. total V pacing 97.9%. Adaptive DISTRICT FIRE MANAGEMENT OFFICER shows BiV pacing 6.8%, LV only pacing 93.2%. FOLLOW UP: Continue 3 month remote transmissions and yearly in-clinic interrogations. Amy Louis RN NOTE TO PROVIDERS: CARD Flowsheets contain detailed device programming and testing data. Paceart/Interrogation PDF can be found under CARDIAC DATA AND REPORT, Scanned Documents section. [facility] No Panel Informationon 09-27 BLANK _ [facility] [place] ICD-ATRIALTACHYCARDIA 0 [facility] ICD-Fast Ventricular Tachycardia 0 [facility] [place] Implant Date 2023 [facility] 09-25-2023 TIMN Telephone (MEPRAD) ----- SANDRA SCHMITZ ([id number]) 1945 [place] Date Time Provider Department 09/25/23 THUY AGUIRRE During your visit today, we recorded the following information about you: Thuy Aguirre, MELI.MEDICAL SCIENTIST 09/25/2023 12:12 PM Signed Called and [...] Dr. Wells 10/01 virtually. Thuy Aguirre APRN.MEDICAL SCIENTIST Allergies As of Date: 09/25/2023 Noted [...] (more content not included)... Normal [facility] XR Foot - left AP and Latera l and obliqueon 09-13-2023 IMPRESSION: No acute osseous abnormality Cartographic Aide: KEYANA Transcribe Date/Time: Sep 13 2023 11:53A Dictated by : KIRA MALONE MD This examination was interpreted and the report reviewed and electronically signed by: KIRA MALONE MD on Sep 13 2023 11:55AM [facility] DIVISION OF RADIOLOGY * * *Final [...] erosions. IMPRESSION IMPRESSION: No acute osseous abnormality Cartographic Aide: PSCB Transcribe Date/Time: Sep 13 2023 11:53A Dictated by : KIRA MALONE MD This examination was interpreted and the report reviewed and electronically signed by: KIRA MALONE MD on Sep 13 2023 11:55AM EST [facility] [place] Radiology Study observation (narrative) [facility] [place] XR Foot - left AP and Latera l and obliqueOrdered By: Ccf Provider on 09-13-2023 [facility] [place] CR - History AND Physicalon 08-29-2023 CR - History & Physical [facility] [address] [place] [address] CR - History Physical MR#: [id number] Acct: [id number] Name: SANDRA SCHMITZ Rep #: [id number] : 1945 78 From: [place] KEYS, RVT [...] Negative Advanced Directives Advanced Directives Power of Sapp[employer] Grinder: Yes Living Will: Yes Advance Directives Information [...] Date Josh Britton MD CC: Signed Normal [facility] UA DIP, URINE (POC)on 2023 BILIRUBIN UA (POCT) Negative Negative [facility] CLARITY UA (POCT) Clear [facility] COLOR UA (POCT) Yellow [facility] [place] GLUCOSE UA (POCT) Negative Negative mg/dL [facility] [place] Hemoglobin Ql (U) Negative Negative [facility] KETONE UA (POCT) Negative Negative mg/dL [facility] [place] LEUKOCYTES UA (POCT) Negative Negative [facility] NITRITE UA (POCT) Negative Negative [facility] PH UA (POCT) 6.5 4.5 - 8.0 [facility] [place] Protein Ql (U) Negative Negative mg/dL [facility] [place] SPECIFIC GRAVITY UA (POCT) 1.010 1.005 - 1.030 [facility] [place] UROBILINOGEN UA (POCT) 0.2 E.U./dL Jeanette l E.U./dL [facility] [place] ICD CLINIC CHECKon 4 AV Delay Adaptive Paced Minimum (ms) 100 ms [facility] [place] AV Delay Adaptive Sensed Minimum (ms) 80 ms [facility] [place] AV Delay Adaptive Status ENABLED [facility] [place] Battery Voltage 3.11 V [facility] [place] Luis LV Pacing Amplitude (volts) 2.5 V [facility] [place] Luis LV Pacing Polarity BI [facility] [place] Luis LV Pacing Pulse Width (ms) 0.4 ms [facility] [place] Luis RA Pacing Amplitude (volts) 3.5 V [facility] [place] Luis RA Pacing Polarity BI [facility] [place] Luis RA Pacing Pulse Width (ms) 0.4 ms [facility] [place] Luis RA Sensing Amplitude (mvolts) 0.3 mV [facility] [place] Luis RA Sensing Blanking Period (ms) 150 ms [facility] [place] Luis RA Sensing Polarity BI [facility] [place] Luis RA Sensing Refractory Period (ms) Auto [facility] [place] Luis RV Pacing Amplitude (volts) 3.5 V [facility] [place] Luis RV Pacing Polarity BI [facility] [place] Luis RV Pacing Pulse Width (ms) 0.4 ms [facility] [place] Luis RV Sensing Amplitude (mvolts) 0.3 mV [facility] [place] Luis RV Sensing Blanking Period (ms) 230 ms [facility] [place] Luis RV Sensing Polarity BI [facility] [place] Detection Configuration (Vent) 1 - Zone [facility] [place] ICD AFIB DetectionStatus ENABLED [facility] [place] ICD ATAF DetectionInterval ms 350 ms [facility] [place] ICD ATAF DetectionStatus ENABLED [facility] [place] ICD FastVT DetectionStatus DISABLED [facility] [place] ICD-ADLRATE_BPM 95 {beats}/min [facility] ICD-AMS EPISODES 171 {beats}/min [facility] ICD-ATP Episodes (Vent) 0 [facility] [place] ICD-ATRIALFIBRILLATION 0 Cl [facility] ICD-Device Mfg MDT [facility] [place] ICD-LEADIMPEDANCEATRIA L 551 ohm [facility] [place] ICD-Percent Pacing (Atrial) 0.09 % [facility] [place] ICD-Percent Pacing (Vent) 4.41 % [facility] [place] ICD-PMT Intervention Enabled [facility] ICD-PVC Intervention Enabled [facility] ICD-Rate Modulation Acceleration Reaction 30 s [facility] [place] ICD-Rate Modulation Deceleration Exercise [facility] [place] ICD-Rate Modulation [place] 3 [facility] [place] ICD-Rate Modulation Threshold Low [facility] [place] ICD-Rhythm Normal Sinus Rhythm [facility] ICD-Shocks Aborted (Vent) 0 [facility] [place] [id number] 0 [facility] ICD-SHOCKSABORTED 0 [facility] ICD-SHOCKSDELIVEREDVEN TRICULAR 0 [facility] [place] ICD-Ventricular Fibrillation 0 [facility] [place] ICD-VVDELAY_MS 0 ms [facility] [place] Lead Impedance (LV) 418 ohm [facility] Lead Impedance (RV) 361 ohm [facility] Lead Impedance High Voltage 61 ohm [facility] [place] Lead1 Mfg MDT [facility] [place] Lead2 Mfg MDT [facility] [place] Lead3 Mfg MDT [facility] [place] Location LV [facility] [place] Location RA [facility] [place] Location RV [facility] [place] Lower Rate (bpm) 45 {beats}/min [facility] LV PACING % 98.08 % [facility] [place] Max Sensor Rate (bpm) 120 {beats}/min [facility] [place] MDT_PROG_TACHY_ZONE_DE TECTIONS_STATUS ENABLED [facility] [place] Model [id number] [place] XT HF Quad DISTRICT FIRE MANAGEMENT OFFICER-D MRI [facility] [place] Model 4798 Attain Stabilit y Quad MRI [employer]Oran [facility] [place] Model 5076 [employer]SureFix Novus [facility] Model 6935M Sprint Quattro Secure S [facility] [place] Pacemaker Dependent? NO [facility] Pacing Mode DDD [facility] [place] Serial Number [id number] [facility] [place] Serial Number [id number] [facility] [place] Serial Number [id number] [facility] [place] Serial Number [id number] [facility] [place] Test Charge Energy 40.0 J [facility] Test Charge Time 0 s [facility] Therapy Status (Vent) Enabled [facility] Thresh LV Capture Amplitude (volts) 0.75 V [facility] [place] Thresh LV Capture Duration (ms) 0.40 ms [facility] [place] Thresh RA Capture Amplitude (volts) 0.50 V [facility] [place] Thresh RA Capture Duration (ms) 0.40 ms [facility] [place] Thresh RA Sensing Amplitude (mvolts) 4.4 mV [facility] [place] Thresh RV Capture Amplitude (VOLTS) 0.75 V [facility] [place] Thresh RV Capture Duration (MS) 0.40 ms [facility] [place] Thresh RV Sensing Amplitude (MVOLTS) 20.0 mV [facility] [place] Tracking Rate (bpm) 130 {beats}/min [facility] [place] VF Zone Detection Interval 320 ms [facility] VF Zone Therapy Configuration 1 ATP(s) + 6 Shock(s) [facility] [place] No Panel Informationon 08-06 BLANK _ [facility] [place] ICD-Fast Ventricular Tachycardia 0 [facility] [place] Implant Date 2023 [facility] [place] CBC W Auto Differential pane l (Bld)on 07-24-2023 Basophils (Bld) [#/Vol] 0.13 10*3/uL High <0.11 k/uL [facility] [place] Basophils/100 WBC (Bld) 1.0 % [facility] [place] Differential cell count method Nom (Bld) Auto [facility] [place] Eosinophils (Bld) [#/Vol] 0.46 10*3/uL High <0.46 k/uL [facility] [place] Eosinophils/100 WBC (Bld) 3.4 % [facility] [place] Erythrocyte distribution width (RBC) [Ratio] 15.0 % 11.5 - 15.0 % [facility] [place] Hematocrit (Bld) [Volume fraction] 40.8 % 36.0 - 46.0 % [facility] [place] Hemoglobin (Bld) [Mass/Vol] 12.9 g/dL 11.5 - 15.5 g/dL [facility] [place] Immature granulocytes (Bld) [#/Vol] 0.17 10*3/uL High <0.10 k/uL [facility] [place] Immature granulocytes/100 WBC (Bld) 1.3 % [facility] [place] Lymphocytes (Bld) [#/Vol] 3.09 10*3/uL 1.00 - 4.00 k/uL [facility] [place] Lymphocytes/100 WBC (Bld) 23.0 % [facility] [place] MCH (RBC) [Entitic mass] 29.9 pg 26.0 - 34.0 pg [facility] [place] MCHC (RBC) [Mass/Vol] 31.6 g/dL 30.5 - 36.0 g/dL [facility] [place] MCV (RBC) [Entitic vol] 94.7 fL 80.0 - 100.0 fL [facility] [place] Monocytes (Bld) [#/Vol] 1.15 10*3/uL High <0.87 k/uL [facility] [place] Monocytes/100 WBC (Bld) 8.6 % [facility] [place] Neutrophils (Bld) [#/Vol] 8.45 10*3/uL High 1.45 - 7.50 k/uL [facility] [place] Neutrophils/100 WBC (Bld) 62.7 % [facility] [place] Nucleated RBC (Bld) [#/Vol] <0.01 k/uL [facility] [place] Nucleated RBC/100 WBC (Bld) [Ratio] 0.0 /100 WBC [facility] [place] Platelet mean volume (Bld) [Entitic vol] 10.8 fL 9.0 - 12.7 fL [facility] [place] Platelets (Bld) [#/Vol] 230 10*3/uL 150 - 400 k/uL [facility] [place] RBC (Bld) [#/Vol] 4.31 10*6/uL 3.90 - 5.2 0 m/uL [facility] [place] WBC (Bld) [#/Vol] 13.45 10*3/uL High 3.70 - 11.00 k/uL [facility] [place] Comprehensive metabolic 2000 panelon 07-24-2023 Albumin [Mass/Vol] 4.1 g/dL 3.9 - 4.9 g/dL [facility] [place] ALP [Catalytic activity/Vol] 66 U/L 34 - 123 U/L [facility] [place] ALT [Catalytic activity/Vol] 11 U/L 7 - 38 U/L [facility] [place] Anion gap [Moles/Vol] 12 mmol/L 9 - 18 mmol/L [facility] [place] AST [Catalytic activity/Vol] 19 U/L 13 - 35 U/L [facility] [place] Bilirubin [Mass/Vol] 0.4 mg/dL 0.2 - 1 .3 mg/dL [facility] [place] Calcium [Mass/Vol] 9.9 mg/dL 8.5 - 10. 2 mg/dL [facility] [place] Chloride [Moles/Vol] 103 mmol/L 97 - 10 5 mmol/L [facility] [place] CO2 [Moles/Vol] 26 mmol/L 22 - 30 mmol/L [facility] [place] Creatinine [Mass/Vol] 1.08 mg/dL High 0.58 - 0.96 mg/dL [facility] [place] Estimated Glomerular Filtration Rate 53 mL/min/1.73m Low >=60 mL/min/1.73 m [facility] [place] Glucose [Mass/Vol] 89 mg/dL 74 - 99 mg/dL [facility] [place] Potassium [Moles/Vol] 4.5 mmol/L 3.7 - 5.1 mmol/L [facility] [place] Protein [Mass/Vol] 7.5 g/dL 6.3 - 8.0 g/dL [facility] [place] Sodium [Moles/Vol] 141 mmol/L 136 - 144 mmol/L [facility] [place] Urea nitrogen [Mass/Vol] 32 mg/dL High 7 - 21 mg/dL [facility] [place] T3 FREE BLDon 07-24-2023 Free T3 [Mass/Vol] 2.0 pg/mL Low 2.3 - 4.1 pg/mL [facility] T4 FREE/FREE THYROXon 2023 Free T4 [Mass/Vol] 1.5 ng/dL 0.9 - 1.7 ng/dL [facility] TSH BLDon 07-24-2023 TSH Qn 2.430 m[IU]/L 0.270 - 4.200 mIU/L [facility] VITAMIN B12 BLOODon 07-24-19 Cobalamin (Vitamin B12) [Mass/Vol] 520 pg/mL 232 - 1,245 pg/mL [facility] CBC W Auto Differential pane l (Bld)on 07-18-2023 Basophils (Bld) [#/Vol] 0.10 10*3/uL Normal <0.11 [facility] Comment on above: Order Comment: Speci men Type: BLOOD SPECIMENOrdering Facility: [facility] Address: [address] [place] [address] Performed By: #### 5 7021-8 ####[facility]ORYCLIA [id number] [place] [address] [place] Basophils/100 WBC (Bld) 1.1 % Normal [facility] Comment on above: Order Comment: Speci men Type: BLOOD SPECIMENOrdering Facility: [facility] Address: [address] [place] [address] Performed By: #### 5 7021-8 ####[facility]ORYCLIA [id number] [place] [id number] [place] Differential cell count method Nom (Bld) Auto Normal [facility] Comment on above: Order Comment: Speci men Type: BLOOD SPECIMENOrdering Facility: [facility] Address: [address] [place] [address] Performed By: #### 5 7021-8 ####[facility] LABORATORYCLIA [id number] [place] [id number] [place] Eosinophils (Bld) [#/Vol] 0.20 10*3/uL Normal <0.46 [facility] Comment on above: Order Comment: Speci men Type: BLOOD SPECIMENOrdering Facility: [facility] Address: [address] [place] [address] Performed By: #### 5 7021-8 ####[facility] LABORATORYCLIA [id number] [place] [id number] [place] Eosinophils/100 WBC (Bld) 2.1 % Normal [facility] Comment on above: Order Comment: Speci men Type: BLOOD SPECIMENOrdering Facility: [facility] Address: [address] [place] [address] Performed By: #### 5 7021-8 ####[facility] LABORATORYCLIA [id number] [place] [address] [place] Erythrocyte distribution width (RBC) [Ratio] 15.1 % High 11.5-15.0 [facility] Comment on above: Order Comment: Speci men Type: BLOOD SPECIMENOrdering Facility: [facility] Address: [address] [place] [address] Performed By: #### 5 7021-8 ####[facility] LABORATORYCLIA [id number] [place] [address] [place] Hematocrit (Bld) [Volume fraction] 36.1 % Normal 36.0-46.0 [facility] Comment on above: Order Comment: Speci men Type: BLOOD SPECIMENOrdering Facility: [facility] Address: [address] [place] [address] Performed By: #### 5 7021-8 ####[facility]ORYCLIA [id number] [place] [id number] [place] Hemoglobin (Bld) [Mass/Vol] 11.7 g/dL Normal 11.5-15.5 [facility] Comment on above: Order Comment: Speci men Type: BLOOD SPECIMENOrdering Facility: [facility] Address: [address] [place] [address] Performed By: #### 5 7021-8 ####[facility]ATORYCLIA [id number] [place] [address] [place] Immature granulocytes (Bld) [#/Vol] 0.05 10*3/uL Normal <0.10 [facility] Comment on above: Order Comment: Speci men Type: BLOOD SPECIMENOrdering Facility: [facility] Address: [address] [place] [address] Performed By: #### 5 7021-8 ####[facility]ATORYCLIA [id number] [place] [address] [place] Immature granulocytes/100 WBC (Bld) 0.5 % Normal [facility] Comment on above: Order Comment: Speci men Type: BLOOD SPECIMENOrdering Facility: [facility] Address: [address] [place] [address] Performed By: #### 5 7021-8 ####[facility]ATORYCLIA [id number] [place] [address] [place] Lymphocytes (Bld) [#/Vol] 3.38 10*3/uL Normal 1.00-4.00 [facility] Comment on above: Order Comment: Speci men Type: BLOOD SPECIMENOrdering Facility: [facility] Address: [address] [place] [address] Performed By: #### 5 7021-8 ####[facility] LABORATORYCLIA [id number] [address] [place] Lymphocytes/100 WBC (Bld) 36.1 % Normal [facility] Comment on above: Order Comment: Speci men Type: BLOOD SPECIMENOrdering Facility: [facility] Address: [address] [place] [address] Performed By: #### 5 7021-8 ####[facility] LABORATORYCLIA [id number] [place] [address] [place] MCH (RBC) [Entitic mass] 30.0 pg Normal 26.0-34.0 [facility] Comment on above: Order Comment: Speci men Type: BLOOD SPECIMENOrdering Facility: [facility] Address: [address] [place] [address] Performed By: #### 5 7021-8 ####[facility]ATORYCLIA [id number] [place] [id number] [place] MCHC (RBC) [Mass/Vol] 32.4 g/dL Normal 30.5-36.0 [facility] Comment on above: Order Comment: Speci men Type: BLOOD SPECIMENOrdering Facility: [facility] Address: [address] [place] [address] Performed By: #### 5 7021-8 ####[facility] LABORATORYCLIA [id number] [place] [id number] [place] MCV (RBC) [Entitic vol] 92.6 fL Normal 80.0-100.0 [facility] Comment on above: Order Comment: Speci men Type: BLOOD SPECIMENOrdering Facility: [facility] Address: [address] [place] [address] Performed By: #### 5 7021-8 ####[facility] LABORATORYCLIA [id number] [place] [address] [place] Monocytes (Bld) [#/Vol] 0.81 10*3/uL Normal <0.87 [facility] Comment on above: Order Comment: Speci men Type: BLOOD SPECIMENOrdering Facility: [facility] Address: [address] [place] [address] Performed By: #### 5 7021-8 ####[facility]ORYCLIA [id number] [place] [id number] [place] Monocytes/100 WBC (Bld) 8.6 % Normal [facility] Comment on above: Order Comment: Speci men Type: BLOOD SPECIMENOrdering Facility: [facility] Address: [address] [place] [address] Performed By: #### 5 7021-8 ####[facility] LABORATORYCLIA [id number] [place] [id number] [place] Neutrophils (Bld) [#/Vol] 4.83 10*3/uL Normal 1.45-7.50 [facility] Comment on above: Order Comment: Speci men Type: BLOOD SPECIMENOrdering Facility: [facility] Address: [address] [place] [address] Performed By: #### 5 7021-8 ####[facility] LABORATORYCLIA [id number] [place] [id number] [place] Neutrophils/100 WBC (Bld) 51.6 % Normal [facility] Comment on above: Order Comment: Speci men Type: BLOOD SPECIMENOrdering Facility: [facility] Address: [address] [place] [address] Performed By: #### 5 7021-8 ####[facility] LABORATORYCLIA [id number] [place] [address] [place] Nucleated RBC (Bld) [#/Vol] 10*3/uL Normal <0.01 [facility] Comment on above: Order Comment: Speci men Type: BLOOD SPECIMENOrdering Facility: [facility] Address: [address] [place] [address] Performed By: #### 5 7021-8 ####[facility] LABORATORYCLIA [id number] [place] [address] [place] Nucleated RBC/100 WBC (Bld) [Ratio] 0.0 /100 WBC Normal [facility] Comment on above: Order Comment: Speci men Type: BLOOD SPECIMENOrdering Facility: [facility] Address: [address] [place] [address] Performed By: #### 5 7021-8 ####[facility]ATORYCLIA [id number] [place] [id number] [place] Platelet mean volume (Bld) [Entitic vol] 10.2 fL Normal 9.0-12.7 [facility] Comment on above: Order Comment: Speci men Type: BLOOD SPECIMENOrdering Facility: [facility] Address: [address] [place] [address] Performed By: #### 5 7021-8 ####[facility] LABORATORYCLIA [id number] [place] [id number] [place] Platelets (Bld) [#/Vol] 205 10*3/uL Normal 150-400 [facility] Comment on above: Order Comment: Speci men Type: BLOOD SPECIMENOrdering Facility: [facility] Address: [address] [place], [place] [address] Performed By: #### 5 7021-8 ####[facility]ATORYCLIA [id number] [place] [id number] [facility] RBC (Bld) [#/Vol] 3.90 10*6/uL Normal 3.90-5.20 [facility] Comment on above: Order Comment: Speci men Type: BLOOD SPECIMENOrdering Facility: [facility] Address: [address] [place] [address] Performed By: #### 5 7021-8 ####[facility] LABORATORYCLIA [id number] [place] [id number] [facility] WBC (Bld) [#/Vol] 9.37 10*3/uL Normal 3.70-11.00 [facility] Comment on above: Order Comment: Speci men Type: BLOOD SPECIMENOrdering Facility: [facility] Address: [address] [place] [address] Performed By: #### 5 7021-8 ####[facility]ORATORYCLIA [id number] [place] [id number] [facility] CNDSon 07-18-2023 CNDS HNO ID: [id number] Author: ANGELICA SILVA MD Service: Hospital Medicine [...] (HCC) (POA: Yes) 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 chronic LBBB 77 year old female, who presented to [facility] ER due to concerns for chest pressure with associated postural lightheadedness and dyspnea She was subsequently admitted to [facility] She had lexiscan stress test which was [...] IV Lasix And she was transferred to [facility] for consideration of inpatient DISTRICT FIRE MANAGEMENT OFFICER implantation given her left bundle branch block Pt was seen by EP and she had MDT DISTRICT FIRE MANAGEMENT OFFICER-D insertion on 08/14 In regards to heart [...] week follow up with EP ROSEMARY at [facility] office with device check prior. OPERATIONS/PROCEDURE DURING THIS HOSPITALIZATION: Procedure(s) (LRB): INSERTION PERM IMPLANTABLE DEFIBRILLATOR SYSTEM, W/TRANSVENOUS LEAD(S) (N/A) INSERTION CORONARY SINUS/LT VENTRICULAR LEAD W/INITIAL INSERTION OF PACEMAKER/DEFIB GENERATOR (N/A) CONSULTS DURING HOSPITALIZATION: Treatment Team: Attending Provider: Angelica Silva MD Primary Service: , [facility] Consulting: Pili Wells MD Orders [...] to ausc (more content not included)... Normal [facility] Comprehensive metabolic 2000 panelon 07-18-2023 Albumin [Mass/Vol] 3.5 g/dL Low 3.9-4.9 [facility] Comment on above: Order Comment: Speci men Type: BLOOD SPECIMEN [facility] Address: [address] [place] [address] Performed By: #### 2 4321-2, 86700-0 #### [facility] CLIA [id number] [place] [address] [place] ALP [Catalytic activity/Vol] 52 U/L Normal 34-123 [facility] Comment on above: Order Comment: Speci men Type: BLOOD SPECIMEN [facility] Address: [address] [place] [address] Performed By: #### 2 4320-2, #### [facility] CLIA [id number] [address] [place] [address] [place] ALT [Catalytic activity/Vol] 18 U/L Normal 7-38 [facility] Comment on above: Order Comment: Speci men Type: BLOOD SPECIMEN [facility] Address: [address] [place] [address] Performed By: #### 2 2, #### [facility] CLIA [id number] [address] [place] [address] [place] Anion gap [Moles/Vol] 8 mmol/L Low 9-18 [facility] Comment on above: Order Comment: Speci men Type: BLOOD SPECIMEN [facility] Address: [address] [place] [address] Performed By: #### 2 4320-2, #### [facility] CLIA [id number] [address] [place] [address] [place] AST [Catalytic activity/Vol] 18 U/L Normal 13-35 [facility] Comment on above: Order Comment: Speci men Type: BLOOD SPECIMEN [facility] Address: [address] [place] [address] Performed By: #### 2 2, #### [facility] CLIA [id number] [address] [place] [address] [place] Bilirubin [Mass/Vol] 0.4 mg/dL Normal 0.2-1.3 [facility] Comment on above: Order Comment: Speci men Type: BLOOD SPECIMEN [facility] Address: [address] [place] [address] Performed By: #### 2 432-2, #### [facility] CLIA [id number] [address] [place] [address] [place] Calcium [Mass/Vol] 8.8 mg/dL Normal 8.5-10.2 [facility] Comment on above: Order Comment: Speci men Type: BLOOD SPECIMEN [facility] Address: [address] [place] [address] Performed By: #### 2 4321-2, #### [facility] CLIA [id number] [address] [place] [address] [place] Chloride [Moles/Vol] 105 mmol/L Normal 97-105 [facility] Comment on above: Order Comment: Speci men Type: BLOOD SPECIMEN [facility] Address: [address] [place] [address] Performed By: #### 2 4321-2, #### [facility] CLIA [id number] [address] [place] [address] [place] CO2 [Moles/Vol] 27 mmol/L Normal 22-30 [facility] Comment on above: Order Comment: Speci men Type: BLOOD SPECIMEN [facility] Address: [address] [place] [address] Performed By: #### 2 4321-2, #### [facility] CLIA [id number] [address] [place] [address] [place] Creatinine [Mass/Vol] 1.10 mg/dL High 0.58-0.96 [facility] Comment on above: Order Comment: Speci men Type: BLOOD SPECIMEN [facility] Address: [address] [place] [address] Performed By: #### 2 4321-2, #### [facility] CLIA [id number] [address] [place] [address] [place] Creatinine and Glomerular filtration rate.predicted panel (S/P/Bld) 52 mL/min/1.73m??? Low >=60 [facility] Comment on above: Order Comment: Speci men Type: BLOOD SPECIMEN [facility] Address: [address] [place] [address] Result Comment: Aaron mated Glomerular Filtration Rate [...] GFR. Performed By: #### 2 432-, #### [facility] CLIA [id number] [place] [address] [place] Glucose [Mass/Vol] 95 mg/dL Normal 74-99 [facility] Comment on above: Order Comment: Lenard jesus Type: BLOOD SPECIMEN [facility] Address: [address] [place] [address] Result Comment: The [place] Diabetes Association (ADA) provides guidance for cutoff [...] Standards of Medical Care in Diabetes 2016, [place] Diabetes Association. Diabetes Care. 2016.39(Suppl 1). Performed By: #### 2 4320-06, #### [facility] CLIA [id number] [place] [address] [place] Potassium [Moles/Vol] 4.0 mmol/L Normal 3.7-5.1 [facility] Comment on above: Order Comment: Lenard jesus Type: BLOOD SPECIMEN [facility] Address: [address] [place] [address] Performed By: #### 2 432-, #### [facility] CLIA [id number] [address] [place] [address] [place] Protein [Mass/Vol] 6.2 g/dL Low 6.3-8.0 [facility] Comment on above: Order Comment: Speci men Type: BLOOD SPECIMEN [facility] Address: [address] [place] [address] Performed By: #### 2 4321-2, #### [facility] CLIA [id number] [address] [place] [address] [place] Sodium [Moles/Vol] 140 mmol/L Normal 136-144 [facility] Comment on above: Order Comment: Speci men Type: BLOOD SPECIMEN [facility] Address: [address] [place] [address] Performed By: #### 2 4321-2, #### [facility] CLIA [id number] [address] [place] [address] [place] Urea nitrogen [Mass/Vol] 36 mg/dL High 7-21 [facility] Comment on above: Order Comment: Speci men Type: BLOOD SPECIMEN [facility] Address: [address] [place] [address] Performed By: #### 2 4321-2, #### [facility] CLIA [id number] [address] [place] [address] [place] Magnesium SerPl-mCncon 07-17 Magnesium [Mass/Vol] 2.3 mg/dL Normal 1.7-2.3 [facility] Comment on above: Order Comment: Speci men Type: BLOOD SPECIMEN [facility] Address: [address] [place] [address] Performed By: #### 5 8410-2 #### [facility] CLIA [id number] [address] [place] [address] [place] NURSING PROGon 07-18-2023 NURSING PROG HNO ID: [id number] Author: CHON RAMSEY RN Service: Nursing Author [...] daughter is here to take her home. [facility] ALLIED HEALTHon 07-17-2023 ALLIED HEALTH HNO ID: [id number] Author: ANAND AMIN RT(R) Service: ? Author [...] PATIENT PRESENTS WITH AN IMPLANTABLE OR ATTACHED ROLLING CHAIR PUSHER: No RADIOLOGY DEPARTMENT: General X-ray: Exam(s) Completed: Chest X-Ray PERIPHERAL IV DATA: Not applicable SIGNED BY: RT Cindy(R) July 17, 2023 10:02 AM [facility] ANES POSTPROC EVALon 024 ANES POSTPROC EVAL HNO ID: [id number] Author: GRISELDA SALMERON MD Service: Anesthesiology Author [...] July 17, 2023 TIME: 7:14 AM CSN: [id number] Normal [facility] Basic metabolic 2000 panelon 07-17-2023 Anion gap [Moles/Vol] 9 mmol/L Normal 9-18 [facility] Comment on above: Order Comment: Speci edin Type: BLOOD SPECIMEN [facility] Address: [address] [place] [address] Performed By: #### 2 4321-2 #### [facility] CLIA [id number] [address] [place] [address] [place] Calcium [Mass/Vol] 9.0 mg/dL Normal 8.5-10.2 [facility] Comment on above: Order Comment: Lenard jesus Type: BLOOD SPECIMEN [facility] Address: [address] [place] [address] Performed By: #### 2 4321-2 #### [facility] CLIA [id number] [address] [place] [address] [place] Chloride [Moles/Vol] 103 mmol/L Normal 97-105 [facility] Comment on above: Order Comment: Speci men Type: BLOOD SPECIMEN [facility] Address: [address] [place] [address] Performed By: #### 2 4321-2 #### [facility] CLIA [id number] [address] [place] [address] [place] CO2 [Moles/Vol] 26 mmol/L Normal 22-30 [facility] Comment on above: Order Comment: Speci men Type: BLOOD SPECIMEN [facility] Address: [address] [place] [address] Performed By: #### 2 4321-2 #### [facility] CLIA [id number] [address] [place] [address] Creatinine [Mass/Vol] 0.98 mg/dL High 0.58-0.96 [facility] Comment on above: Order Comment: Speci men Type: BLOOD SPECIMEN [facility] Address: [address] [place] [address] Performed By: #### 2 4321-2 #### [facility] CLIA [id number] [address] [place] [address] Creatinine and Glomerular filtration rate.predicted panel (S/P/Bld) 60 mL/min/1.73m??? Normal >=60 [facility] Comment on above: Order Comment: Speci men Type: BLOOD SPECIMEN [facility] Address: [address] [place] [address] Result Comment: Aaron mated Glomerular Filtration Rate [...] GFR. Performed By: #### 2 4321-2 #### [facility] CLIA [id number] [address] [place] [address] [place] Glucose [Mass/Vol] 120 mg/dL High 74-99 [facility] Comment on above: Order Comment: Lenard jesus Type: BLOOD SPECIMEN [facility] Address: [address] [place] [address] Result Comment: The [place] Diabetes Association (ADA) provides guidance for cutoff [...] Standards of Medical Care in Diabetes 2016, [place] Diabetes Association. Diabetes Care. 2016.39(Suppl 1). Performed By: #### 2 4321-2 #### [facility] CLIA [id number] [address] [place] [address] [place] Potassium [Moles/Vol] 4.6 mmol/L Normal 3.7-5.1 [facility] Comment on above: Order Comment: Lenard jesus Type: BLOOD SPECIMEN [facility] Address: [address] [place] [address] Performed By: #### 2 4321-2 #### [facility] CLIA [id number] [address] [place] [address] [place] Sodium [Moles/Vol] 138 mmol/L Normal 136-144 [facility] Comment on above: Order Comment: Ernestinei men Type: BLOOD SPECIMEN [facility] Address: [address] [place] [address] Performed By: #### 2 4321-2 #### [facility] CLIA [id number] [address] [place] [address] [place] Urea nitrogen [Mass/Vol] 33 mg/dL High 7-21 [facility] Comment on above: Order Comment: Ernestinei men Type: BLOOD SPECIMEN [facility] Address: [address] [place] [address] Performed By: #### 2 4321-2 #### [facility] CLIA [id number] [address] [place] [address] [place] CBC panel Auto (Bld)on 07-16 Erythrocyte distribution width (RBC) [Ratio] 14.6 % Normal 11.5-15.0 [facility] Comment on above: Order Comment: Speci men Type: BLOOD SPECIMEN [facility] Address: [address] [place] [address] Performed By: #### 5 8410-2 #### [facility] CLIA [id number] [address] [place] [address] OF [place] Hematocrit (Bld) [Volume fraction] 38.8 % Normal 36.0-46.0 [facility] Comment on above: Order Comment: Speci men Type: BLOOD SPECIMEN Ordering Facility: [facility] Address: [address] [place] [address] Performed By: #### 5 8410-2 #### [facility] CLIA [id number] [address] [place] [address] [place] Hemoglobin (Bld) [Mass/Vol] 12.8 g/dL Normal 11.5-15.5 [facility] Comment on above: Order Comment: Speci men Type: BLOOD SPECIMEN Ordering Facility: [facility] Address: [address] [place] [address] Performed By: #### 5 8410-2 #### [facility] CLIA [id number] [address] [place] [address] [place] MCH (RBC) [Entitic mass] 29.8 pg Normal 26.0-34.0 [facility] Comment on above: Order Comment: Speci men Type: BLOOD SPECIMEN Ordering Facility: [facility] Address: [address] [place] [address] Performed By: #### 5 8410-2 #### [facility] CLIA [id number] [address] [place] [address] [place] MCHC (RBC) [Mass/Vol] 33.0 g/dL Normal 30.5-36.0 [facility] Comment on above: Order Comment: Speci men Type: BLOOD SPECIMEN Ordering Facility: [facility] Address: [address] [place] [address] Performed By: #### 5 8410-2 #### [facility] CLIA [id number] [address] [place] [address] [place] MCV (RBC) [Entitic vol] 90.4 fL Normal 80.0-100.0 [facility] Comment on above: Order Comment: Speci men Type: BLOOD SPECIMEN Ordering Facility: [facility] Address: [address] [place] [address] Performed By: #### 5 8410-2 #### [facility] CLIA [id number] [address] [place] [address] [place] Nucleated RBC (Bld) [#/Vol] 10*3/uL Normal <0.01 [facility] Comment on above: Order Comment: Speci men Type: BLOOD SPECIMEN Ordering Facility: [facility] Address: [address] [place] [address] Performed By: #### 5 8410-2 #### [facility] CLIA [id number] [address] [place] [address] [place] Platelet mean volume (Bld) [Entitic vol] 9.9 fL Normal 9.0-12.7 [facility] Comment on above: Order Comment: Speci men Type: BLOOD SPECIMEN Ordering Facility: [facility] Address: [address] [place] [address] Performed By: #### 5 8410-2 #### [facility] CLIA [id number] [address] [place] [address] [place] Platelets (Bld) [#/Vol] 266 10*3/uL Normal 150-400 [facility] Comment on above: Order Comment: Speci men Type: BLOOD SPECIMEN Ordering Facility: [facility] Address: [address] [place] [address] Performed By: #### 5 8410-2 #### [facility] CLIA [id number] [address] [place] [address] [place] RBC (Bld) [#/Vol] 4.29 10*6/uL Normal 3.90-5.20 [facility] Comment on above: Order Comment: Speci men Type: BLOOD SPECIMEN Ordering Facility: [facility] Address: [address] [place] [address] Performed By: #### 5 8410-2 #### [facility] CLIA [id number] [address] [place] [address] [place] WBC (Bld) [#/Vol] 11.00 10*3/uL Normal 3.70-11.00 [facility] Comment on above: Order Comment: Speci men Type: BLOOD SPECIMEN Ordering Facility: [facility] Address: [address] [place] [address] Performed By: #### 5 8410-2 #### [facility] CLIA [id number] [facility] CNPNon 07-17-2023 CNPN Telephone (FVPRAD) ----- SANDRA SCHMITZ ([id number]) 1945 F [facility]* Date Time Provider Department 07/17/23 MORENITA HILL FVFILIBERTO During your visit today, we recorded the following information about you: Morenita Hill APRN.MEDICAL SCIENTIST 07/17/2023 11:05 AM Signed Please call patient to arrange for appointment with EP ROSEMARY or Dr. Wellington with device check immediately prior at [facility] office. If we could coordinate this for same day she is seeing Dr. Wells, that would be great, in the next ~2 weeks. Thank you! Morenita Hill APRN.MEDICAL SCIENTIST Allergies As of Date: 07/17/2023 Noted [...] right [M19.071] 08/02/2022 Coronary artery disease involving benton lopez*08/02/2022 Vitamin D deficiency [E55.9] 08/02/2022 Somatic [...] respiratory failure (more content not included)... Normal [facility] CONSULT PROGon 07-17-2023 CONSULT PROG HNO ID: [id number] Author: MORENITA HILL APRN.MEDICAL SCIENTIST Service: Electrophysiology Author Type: Nurse Practitioner Type: Consult Progress Note Filed: 07/17/2023 11:02 Note Text: [facility] CARDI[facility]ASCULAR MEDICINE PROGRESS NOTE PRIMARY SERVICE: 5, Fv HOSPITAL DAY: # 4 INTERVAL HISTORY POD #1 s/p MDT DISTRICT FIRE MANAGEMENT OFFICER-D for primary prevention in the setting of [...] Chronic, non-ischemic HFrEF with LBBB s/p MDT DISTRICT FIRE MANAGEMENT OFFICER-D POD #1 s/p MDT DISTRICT FIRE MANAGEMENT OFFICER-D, reports feeling fatigued, but overall feeling well. [...] week follow up with EP ROSEMARY at [facility] office with device check prior. Patient may be discharged from EP perspective. Case to be discussed with staff, Dr. Muro. Morenita Hill APRN.MEDICAL SCIENTIST July 17, 2023 10:55 AM EP Pager: [phone] Normal [facility] CONSULT PROG HNO ID: [id number] Author: PILI WELLS MD Service: Cardiovascular Medicine [...] (H) 4.3 - 5.6 % Final Comment: [place] Diabetes Association guidelines indicate that patients with [...] On low doses of GDMT LBBB: 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 07/16/23 Non-obstructive CAD: stable, ischemic testing recently with no ischemia or infarction. PLAN/RECOMMENDATIONS: GDMT: continue low dose entresto, start toprol XL 12.5mg today. Start PO lasix 20mg daily. Benedict (more content not included)... Normal [facility] ECG COMPLETEon 07-17-2023 ECG COMPLETE Ventricular Rate : 5 4 BPM Atrial Rate : 53 BPM P-R Interval : 133 ms QRS Duration : 133 ms Q-T Interval : 464 ms QTC Calculation(Bazett) : 440 ms Calculated P Quartzsite : 13 degrees Calculated R Quartzsite : -66 degrees Calculated T Quartzsite : 19 degrees Atrial-sensed ventricular-paced complexes Abnormal ECG Confirmed by ROSALIA WARNER MD ([id number]) on 08/23/2023 1:01:26 PM NAME : SANDRA SCHMITZ PID : [id number] : 1945 Gender : Female Race : ORD : [id number] Procedure Date : Jul 17 2023 08:44:51 Edit Date : Aug 23 2023 13:01:29 Diagnosis: Atrial-sensed ventricular-paced complexes Abnormal ECG Confirmed by ROSALIA WARNER MD ([id number]) on 08/23/2023 1:01:26 PM Test Reason : Post-OP Location : [address] : [address] Overread By : ROSALIA WARNER MD Edited By : ROSALIA WARNER MD Referred By : REMINGTON CAI Acquired by : WILFREDO THOMPSON [facility] NURSING PROGon 07-17-2023 NURSING PROG HNO ID: [id number] Author: CHON RAMSEY, RN Service: Nursing Author [...] MD Shira. Hold lasix 20mg Discharge cancelled. [facility] THERAPY NTon 07-17-2023 THERAPY NT HNO ID: [id number] Author: ZORAN HILL, PT, DPT Service: Physical Therapy Author Type: Physical Therapist Type: Therapy (PT/OT/Speech/Resp) Filed: 07/17/2023 09:00 Note Text: Physical Therapy Treatment Summary SERVICE DATE: 07/17/2023 SERVICE TIME: 08 to 0844 ROOM: [place] [address] PT 6 Clicks Score: 22 DISCHARGE RECOMMENDATIONS [...] CURRENT HOSPITAL COURSE Pt initially admitted to [facility] for acute on chronic HFrEF. She was stabilized with IV diuresis however course complicated by hypotension and bradycardia. She was transferred to [facility] for biventricular pacer defibrillator placement Relevant Past Medical History: HFrEF, LBBB, hypothyroidism HOME LIVING Patient Lives With: Family (pt lives with her dtr in a 1 story home) Assistance Available: Part-Time (pt reports that dtr works from home and Sunday typically, but company has been flexible and may allow her to ball worker upon pt's d/c for first week) [...] Unsteadiness on feet TREATMENT INTERVENTIONS Gait Training (38700), Therapeutic Activity (90384) Timed Code Treatment (minutes): 38 Skilled Treatment [...] Toward Goa (more content not included)... Normal [facility] Vancomycin Edelstein SerPl-mCncon 07-17-2023 Vancomycin random [Mass/Vol] 9.8 ug/mL Low 10.0-20.0 [facility] Comment on above: Order Comment: Speci men Type: BLOOD SPECIMEN Ordering Facility: [facility] Address: [address] [place] [id number] Result Comment: Refe rence ranges and high/low indicator flags are provided as general guidelines only. The treating physician must determine appropriate target levels/dosing based on the specific clinical situation. Performed By: #### 4 091-5 #### [facility] CLIA [id number] [place] [address] [place] XR CHEST 2V [...] Unremarkable. IMPRESSION: Cardiomegaly. 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 Normal [facility] Basic metabolic 2000 panelon 2023 Anion gap [Moles/Vol] 17 mmol/L Normal 9-18 [facility] Comment on above: Order Comment: Speci men Type: BLOOD SPECIMEN Ordering Facility: [facility] Address: [address] [place] [address] Performed By: #### 2 4321-2, #### [facility] CLIA [id number] [address] [place] [address] [place] Calcium [Mass/Vol] 9.1 mg/dL Normal 8.5-10.2 [facility] Comment on above: Order Comment: Speci men Type: BLOOD SPECIMEN Ordering Facility: [facility] Address: [address] [place] [address] Performed By: #### 2 4320-2, #### [facility] CLIA [id number] [address] [place] [address] [place] Chloride [Moles/Vol] 105 mmol/L Normal 97-105 [facility] Comment on above: Order Comment: Speci men Type: BLOOD SPECIMEN Ordering Facility: [facility] Address: [address] [place] [address] Performed By: #### 2 2, #### [facility] CLIA [id number] [address] [place] [address] [place] CO2 [Moles/Vol] 21 mmol/L Low 22-30 [facility] Comment on above: Order Comment: Speci men Type: BLOOD SPECIMEN Ordering Facility: [facility] Address: [address] [place] [address] Performed By: #### 2 2, #### [facility] CLIA [id number] [address] [place] [address] [place] Creatinine [Mass/Vol] 1.04 mg/dL High 0.58-0.96 [facility] Comment on above: Order Comment: Speci men Type: BLOOD SPECIMEN Ordering Facility: [facility] Address: [address] [place] [address] Performed By: #### 2 2, #### [facility] CLIA [id number] [address] [place] [address] [place] Creatinine and Glomerular filtration rate.predicted panel (S/P/Bld) 56 mL/min/1.73m??? Low >=60 [facility] Comment on above: Order Comment: Speci men Type: BLOOD SPECIMEN Ordering Facility: [facility] Address: [address] [place] [address] Result Comment: Aaron mated Glomerular Filtration Rate [...] GFR. Performed By: #### 2 4320-, #### [facility] CLIA [id number] [place] [address] [place] Glucose [Mass/Vol] 94 mg/dL Normal 74-99 [facility] Comment on above: Order Comment: Lenard jesus Type: BLOOD SPECIMEN Ordering Facility: [facility] Address: [address] [place] [address] Result Comment: The [place] Diabetes Association (ADA) provides guidance for cutoff [...] Standards of Medical Care in Diabetes 2016, [place] Diabetes Association. Diabetes Care. 2016.39(Suppl 1). Performed By: #### 2 4320-06, #### [facility] CLIA [id number] [address] [place] [address] [place] Potassium [Moles/Vol] 4.0 mmol/L Normal 3.7-5.1 [facility] Comment on above: Order Comment: Lenard jesus Type: BLOOD SPECIMEN Ordering Facility: [facility] Address: [address] [place] [address] Performed By: #### 2 4320-, #### [facility] CLIA [id number] [address] [place] [address] [place] Sodium [Moles/Vol] 143 mmol/L Normal 136-144 [facility] Comment on above: Order Comment: Speci men Type: BLOOD SPECIMEN Ordering Facility: [facility] Address: [address] [place] [address] Performed By: #### 2 4321-2, #### [facility] CLIA [id number] [address] [place] [id number] [place] Urea nitrogen [Mass/Vol] 39 mg/dL High 7-21 [facility] Comment on above: Order Comment: Speci men Type: BLOOD SPECIMEN Ordering Facility: [facility] Address: [address] [place] [address] Performed By: #### 2 4321-2, #### [facility] CLIA [id number] [facility] CASE MGT INIT ASSESon 2023 CASE MGT INIT ASSES HNO ID: [id number] Author: ESTELA BRIONES RN Service: ? Author [...] Current Advance Directive: Health Care Power of [place]apphire Stylus Grinder;Living Will In Chart: No Current Living Arrangements [...] None Discharge Planning Patient Goal(s): General wellness [place] Explained: [place] of [place] Given: No Are you interested [...] Discharge Plan: Pt getting pacemaker. Reports independent captain cannery tender. Dtr Julia lives with her. SIGNATURE: Estela Briones RN PATIENT NAME: Sandra Schmitz DATE: 2023 TIME: 12:24 PM CONTACT #: [phone] [facility] CONSULTon 2023 CONSULT HNO ID: [id number] Author: PILI WELLS MD Service: Cardiovascular Medicine [...] no ischemia or infarction. PLAN/RECOMMENDATIONS: Agree with DISTRICT FIRE MANAGEMENT OFFICER, planning for today. Can likely transition to PO lasix 40mg daily starting tomorrow. GDMT: continue low dose entresto, post DISTRICT FIRE MANAGEMENT OFFICER placement can add toprol XL 12.5mg daily. Re-evaluate tomorrow post DISTRICT FIRE MANAGEMENT OFFICER for additional medications if possible. 2L fluid [...] or on weekends. [place] [phone]; [place] [phone] Pili Wells MD Advanced Heart Failure and Transplant Director Of [facility] [place] [id number] Appointment: [phone] ----- --- SERVICE DATE: 2023 SERVICE TIME: 10:00AM CONSULTING PHYSICIAN: pili wells PCP: Mandeep Houser DO ATTENDING: Angelica Silva MD REASON FOR CONSULT: Heart Failure CHIEF COMPLAINT: Bradycardia [R00.1] HISTORY OF PRESENT ILLNESS: Ms. Schmitz is a 77 year old female who presents for decompensated HF and EP eval for DISTRICT FIRE MANAGEMENT OFFICER. Sandra Schmitz has a pmhx of non-ischemic CM, HTN, Hypothyroidism, LBBB, non-obstructive CAD who is transferred to for decompensated HF and EP eval for DISTRICT FIRE MANAGEMENT OFFICER. Ns, Nadir reports that she has been [...] went to the hospital. On arrival to [facility] she was volume up, hypotensive. She [...] on chronic systolic CHF (congestive heart failure) ([facility]) 05/03/2020 Aspiration pneumonia ([facility]) 05/30/2020 Chest pain 05/03/2020 Chest pressure 01/23/2013 Chronic diastolic congestive heart failure ([facility]) 02/14/2021 Clostridium difficile diarrhea 09/28/2020 Complete uterovaginal prolapse Cystocele, midline Essential hypertension 06/14/2020 Homozygous Factor V Leiden mutation ([facility]) 05/03/2020 Hypothyroidism IBS (irritable bowel syndrome) [...] Disease Father (more content not included)... Normal [facility] Magnesium SerPl-mCncon 07-15 Magnesium [Mass/Vol] 2.2 mg/dL Normal 1.7-2.3 [facility] Comment on above: Order Comment: Speci men Type: BLOOD SPECIMEN Ordering Facility: [facility] Address: [address] [place] [address] Performed By: #### 2 4321-2, 04299-3 #### [facility] CLIA [id number] [place] NURSING PROGon 2023 NURSING PROG HNO ID: [id number] Author: ELEONORA ALVARADO RN Service: Nursing Author [...] note was completed by: Eleonora Alvarado Normal [facility] NURSING PROG HNO ID: [id number] Author: CHON RAMSEY RN Service: Nursing Author Type: Registered Nurse Type: Nursing Progress Note Filed: 2023 08:57 Note Text: Daily note: 0800: per MD Shira hold pt morning dose of IV lasix. Aware subq heparin held for procedure. Normal [facility] CBC panel Auto (Bld)on 07-14 Erythrocyte distribution width (RBC) [Ratio] 14.7 % Normal 11.5-15.0 [facility] Comment on above: Order Comment: Speci men Type: BLOOD SPECIMENOrdering Facility: [facility] Address: [facility] [place] [address] Performed By: #### 5 8410-2 ####[facility]ORYCLIA [id number] [address] [place] Hematocrit (Bld) [Volume fraction] 38.7 % Normal 36.0-46.0 [facility] Comment on above: Order Comment: Speci men Type: BLOOD SPECIMENOrdering Facility: [facility] Address: [address] [place] [address] Performed By: #### 5 8410-2 ####[facility] [id number] [address] [place] Hemoglobin (Bld) [Mass/Vol] 12.7 g/dL Normal 11.5-15.5 [facility] Comment on above: Order Comment: Speci men Type: BLOOD SPECIMENOrdering Facility: [facility] Address: [address] [place] [address] Performed By: #### 5 8410-2 ####[facility] [id number] [address] [place] MCH (RBC) [Entitic mass] 29.7 pg Normal 26.0-34.0 [facility] Comment on above: Order Comment: Speci men Type: BLOOD SPECIMENOrdering Facility: [facility] Address: [address] [place] [address] Performed By: #### 5 8410-2 ####[facility] LABORATORYCLIA [id number] [address] STATES [facility] MCHC (RBC) [Mass/Vol] 32.8 g/dL Normal 30.5-36.0 [facility] Comment on above: Order Comment: Speci men Type: BLOOD SPECIMENOrdering Facility: [facility] Address: [address] [place] [address] Performed By: #### 5 8410-2 ####[facility] [id number] [address] [place] MCV (RBC) [Entitic vol] 90.6 fL Normal 80.0-100.0 [facility] Comment on above: Order Comment: Speci men Type: BLOOD SPECIMENOrdering Facility: [facility] Address: [address] [place] [address] Performed By: #### 5 8410-2 ####[facility] [id number] [place] [address] [place] Nucleated RBC (Bld) [#/Vol] 10*3/uL Normal <0.01 [facility] Comment on above: Order Comment: Speci men Type: BLOOD SPECIMENOrdering Facility: [facility] Address: [address] [place] [address] Performed By: #### 5 8410-2 ####[facility] LABORATORYCLIA [id number] [place] [id number] [place] Platelet mean volume (Bld) [Entitic vol] 10.2 fL Normal 9.0-12.7 [facility] Comment on above: Order Comment: Speci men Type: BLOOD SPECIMENOrdering Facility: [facility] Address: [address] [place] [address] Performed By: #### 5 8410-2 ####[facility]ORATORYCLIA [id number] [place] [address] [place] Platelets (Bld) [#/Vol] 280 10*3/uL Normal 150-400 [facility] Comment on above: Order Comment: Speci men Type: BLOOD SPECIMENOrdering Facility: [facility] Address: [address] [place] [address] Performed By: #### 5 8410-2 ####[facility] LABORATORYCLIA [id number] [place] [address] [place] RBC (Bld) [#/Vol] 4.27 10*6/uL Normal 3.90-5.20 [facility] Comment on above: Order Comment: Speci men Type: BLOOD SPECIMENOrdering Facility: [facility] Address: [address] [place] [address] Performed By: #### 5 8410-2 ####[facility] LABORATORYCLIA [id number] [place] [id number] [place] WBC (Bld) [#/Vol] 7.64 10*3/uL Normal 3.70-11.00 [facility] Comment on above: Order Comment: Speci men Type: BLOOD SPECIMENOrdering Facility: [facility] Address: [address] [place] [address] Performed By: #### 5 8410-2 ####[facility] [id number] [place] [address] [place] Comprehensive metabolic 2000 panelon 07-15-2023 Albumin [Mass/Vol] 3.7 g/dL Low 3.9-4.9 [facility] Comment on above: Order Comment: Speci men Type: BLOOD SPECIMEN Ordering Facility: [facility] Address: [address] [place] [address] Performed By: #### 1 9123-9, 47345-3 #### [facility] CLIA [id number] [address] [place] [address] [place] ALP [Catalytic activity/Vol] 51 U/L Normal 34-123 [facility] Comment on above: Order Comment: Speci men Type: BLOOD SPECIMEN Ordering Facility: [facility] Address: [address] [place] [address] Performed By: #### 1 9123-9, 01941-4 #### [facility] CLIA [id number] [address] [place] [address] [place] ALT [Catalytic activity/Vol] Normal [facility] Comment on above: Order Comment: Speci men Type: BLOOD SPECIMEN Ordering Facility: [facility] Address: [address] [place] [address] Result Comment: Unab le to assay due to interference from hemolysis. Suggest reorder as clinically indicated. Performed By: #### 1 9123-9, 89769-1 #### [facility] CLIA [id number] [address] [place] [address] [place] Anion gap [Moles/Vol] 13 mmol/L Normal 9-18 [facility] Comment on above: Order Comment: Speci men Type: BLOOD SPECIMEN [facility]ing Facility: [facility] Address: [address] [place] [address] Performed By: #### 1 9123-9, 96769-9 #### [facility] CLIA [id number] [address] [place] [address] [place] AST [Catalytic activity/Vol] Normal [facility] Comment on above: Order Comment: Speci men Type: BLOOD SPECIMEN Ordering Facility: [facility] Address: [address] [place] [address] Result Comment: Unab le to assay due to interference from hemolysis. Suggest reorder as clinically indicated. Performed By: #### 1 23-9, #### [facility] CLIA [id number] [address] [place] [address] [place] Bilirubin [Mass/Vol] 0.7 mg/dL Normal 0.2-1.3 [facility] Comment on above: Order Comment: Speci men Type: BLOOD SPECIMEN [facility] [facility] Address: [address] [place] [address] Performed By: #### 1 9123-01, #### [facility] CLIA [id number] [address] [place] [address] [place] Calcium [Mass/Vol] 9.1 mg/dL Normal 8.5-10.2 [facility] Comment on above: Order Comment: Speci men Type: BLOOD SPECIMEN Ordering Facility: [facility] Address: [address] [place] [address] Performed By: #### 1 239, #### [facility] CLIA [id number] [address] [place] [address] [place] Chloride [Moles/Vol] 103 mmol/L Normal 97-105 [facility] Comment on above: Order Comment: Speci men Type: BLOOD SPECIMEN Ordering Facility: [facility] Address: [address] [place] [address] Performed By: #### 1 9123-01, #### [facility] CLIA [id number] [address] [place] [address] [place] CO2 [Moles/Vol] 25 mmol/L Normal 22-30 [facility] Comment on above: Order Comment: Speci men Type: BLOOD SPECIMEN Ordering Facility: [facility] Address: [address] [place] [address] Performed By: #### 1 239, 59959-8 #### [facility] CLIA [id number] [address] [place] [address] [place] Creatinine [Mass/Vol] 0.99 mg/dL High 0.58-0.96 [facility] Comment on above: Order Comment: Lenard jesus Type: BLOOD SPECIMEN Ordering Facility: [facility] Address: [address] [place] [address] Performed By: #### 1 9123-9, 43933-3 #### [facility] CLIA [id number] [address] [place] [address] [place] Creatinine and Glomerular filtration rate.predicted panel (S/P/Bld) 59 mL/min/1.73m??? Low >=60 [facility] Comment on above: Order Comment: Lenard jesus Type: BLOOD SPECIMEN Ordering Facility: [facility] Address: [address] [place] [address] Result Comment: Aaron mated Glomerular Filtration Rate [...] actual GFR. Performed By: #### 1 9123-9, 00466-2 #### [facility] CLIA [id number] [address] [place] [address] [place] Glucose [Mass/Vol] 95 mg/dL Normal 74-99 [facility] Comment on above: Order Comment: Lenard jesus Type: BLOOD SPECIMEN Ordering Facility: [facility] Address: [address] [place] [address] Result Comment: The [place] Diabetes Association (ADA) provides guidance for cutoff [...] Standards of Medical Care in Diabetes 2016, [place] Diabetes Association. Diabetes Care. 2016.39(Suppl 1). Performed By: #### 1 9122-9, 13423-0 #### [facility] CLIA [id number] [address] [place] [address] [place] Potassium [Moles/Vol] 3.8 mmol/L Normal 3.7-5.1 [facility] Comment on above: Order Comment: Speci men Type: BLOOD SPECIMEN Ordering Facility: [facility] Address: [address] [place] [address] Performed By: #### 1 9123-01, 61300-1 #### [facility] CLIA [id number] [address] [place] [address] [place] Protein [Mass/Vol] 6.6 g/dL Normal 6.3-8.0 [facility] Comment on above: Order Comment: Speci men Type: BLOOD SPECIMEN Ordering Facility: [facility] Address: [address] [place] [address] Performed By: #### 1 9123-01, 82019-4 #### [facility] CLIA [id number] [address] [place] [address] [place] Sodium [Moles/Vol] 141 mmol/L Normal 136-144 [facility] Comment on above: Order Comment: Speci men Type: BLOOD SPECIMEN Ordering Facility: [facility] Address: [address] [place] [address] Performed By: #### 1 9123-01, 52828-2 #### [facility] CLIA [id number] [address] [place] [address] [place] Urea nitrogen [Mass/Vol] 38 mg/dL High 7-21 [facility] Comment on above: Order Comment: Speci men Type: BLOOD SPECIMEN Ordering Facility: [facility] Address: [address] [place] [address] Performed By: #### 1 9123-01, 17267-1 #### [facility] CLIA [id number] [address] [place] [address] [place] Magnesium SerPl-mCncon 07-14 Magnesium [Mass/Vol] 2.2 mg/dL Normal 1.7-2.3 [facility] Comment on above: Order Comment: Speci men Type: BLOOD SPECIMEN Ordering Facility: [facility] Address: [address] [place] [address] Performed By: #### 1 9123-9, 95239-8 #### [facility] CLIA [id number] [place] NURSING PROGon 07-15-2023 NURSING PROG HNO ID: [id number] Author: DARIUS GUERRA RN Service: PICC Team [...] 15, 2023 TIME: 11:25 AM PAGER/CONTACT #: [phone] [facility] NURSING PROG HNO ID: [id number] Author: FLORENTINO REBOLLEDO RN Service: ? Author [...] call mckeon in reach. 1500 Cardiology MEDICAL SCIENTIST in to see pt regarding plan of care. ICD to be placed tomorrow. NPO after midnight tonight except medications. questions and concerns addressed. call mckeon in reach. 1600 Monitor remains SR 90's. VSS. afebrile. denies dizziness or cp. independent in room with steady gait. I/O. Assessment unchanged from above. call mckeon in reach. Normal [facility] THERAPY NTon 07-15-2023 THERAPY NT HNO ID: [id number] Author: DANIELLE JACOBS OT/L Service: Occupational Therapy Author Type: Occupational Therapist Type: Therapy (PT/OT/Speech/Resp) Filed: 07/15/2023 12:15 Note Text: Occupational Therapy Evaluation Summary SERVICE DATE: 07/15/2023 SERVICE TIME: 1006 to 1029 ROOM: [place] [address] OT 6 Clicks Score: 24 DISCHARGE RECOMMENDATIONS [...] CURRENT HOSPITAL COURSE Pt initially admitted to [facility] for acute on chronic HFrEF. She was stabilized with IV diuresis however course complicated by hypotension and bradycardia. She was transferred to [facility] for biventricular pacer defibrillator placement Relevant Past Medical History: HFrEF, LBBB, hypothyroidism HOME LIVING Patient Lives With: Family (pt lives with her dtr in a 1 story home) Assistance Available: Part-Time (pt reports that dtr works from home and Sunday typically, but company has been flexible and may allow her to ball worker upon pt's d/c for first week) [...] No Skilled Need TREATMENT INTERVENTIONS Evaluation, Self Correction Management (59334) Timed Code Treatment (minutes): 8 Skilled Treatment Time (minutes): 23 TRAINING AND EDUCATION PROVIDED Assistive Device Use, Benefits of In-Hospital Mobility, Discharge Planning, Disease Specific Education, Energy Conservation, Expected Functional Level, Functional Mobility Involving ADLs, Grooming Tasks, Lower Extremity Dressing, Role of Occupational Therapy, Standing Balance to Improve [place] with ADLs/Self-Care, Toileting , Transfer - Sit [...] DATE: July 15, 2023 TIME: 12:15 PM [facility] THERAPY NT HNO ID: [id number] Author: ZORAN HILL, PT, DPT Service: Physical Therapy Author Type: Physical Therapist Type: Therapy (PT/OT/Speech/Resp) Filed: 07/15/2023 09:14 Note Text: Physical Therapy Evaluation Summary SERVICE DATE: 07/15/2023 SERVICE TIME: 830 to 853 ROOM: [place] [address] PT 6 Clicks Score: 23 DISCHARGE RECOMMENDATIONS [...] CURRENT HOSPITAL COURSE ON RNF, RA, upcoming DISTRICT FIRE MANAGEMENT OFFICER device implant this admission Relevant Past Medical History: HFrEF, LBBB, hypothyroidism, multiple abdominal surgerise including cholecystectomy. HOME LIVING Patient Lives With: Family Assistance Available: Part-Time (Daughter works days, may be able to ball worker for pt first week after d/c [...] Weakness (generalized) TREATMENT INTERVENTIONS Evaluation, Gait Training (70701) Timed Code Treatment (minutes): 8 Skilled Treatment [...] July 15, 2023 TIME: 9:11 AM Normal [facility] Basic metabolic 2000 panelon 07-14-2023 Anion gap [Moles/Vol] 11 mmol/L Normal 9-18 [facility] Comment on above: Order Comment: Speci men Type: BLOOD SPECIMENOrdering Facility: [facility] Address: [address] [place] [address] Performed By: #### 2 4321-2, 56879-5 ####[facility]ORYCLIA [id number] [place] [address] [place] Calcium [Mass/Vol] 9.2 mg/dL Normal 8.5-10.2 [facility] Comment on above: Order Comment: Speci men Type: BLOOD SPECIMENOrdering Facility: [facility] Address: [address] [place] [address] Performed By: #### 2 4321-2, ####[facility]ATORYCLIA [id number] [place] [id number] [place] Chloride [Moles/Vol] 104 mmol/L Normal 97-105 [facility] Comment on above: Order Comment: Speci men Type: BLOOD SPECIMENOrdering Facility: [facility] Address: [address] [place] [address] Performed By: #### 2 4321-2, ####[facility]ORYCLIA [id number] [place] [address] [place] CO2 [Moles/Vol] 27 mmol/L Normal 22-30 [facility] Comment on above: Order Comment: Speci men Type: BLOOD SPECIMENOrdering Facility: [facility] Address: [address] [place] [address] Performed By: #### 2 4321-2, ####[facility] [id number] [place] [address] [place] Creatinine [Mass/Vol] 0.84 mg/dL Normal 0.58-0.96 [facility] Comment on above: Order Comment: Speci men Type: BLOOD SPECIMENOrdering Facility: [facility] Address: [address] [place] [address] Performed By: #### 2 4321-2, ####[facility]ATORYCLIA [id number] [place] [id number] [place] Creatinine and Glomerular filtration rate.predicted panel (S/P/Bld) 72 mL/min/1.73m??? Normal >=60 [facility] Comment on above: Order Comment: Speci men Type: BLOOD SPECIMENOrdering Facility: [facility] Address: [address] [place] [address] Result Comment: Aaron mated Glomerular Filtration Rate [...] Performed By: #### 2 432-, ####[facility] [id number] [place] [id number] [place] Glucose [Mass/Vol] 138 mg/dL High 74-99 [facility] Comment on above: Order Comment: Lenard jesus Type: BLOOD SPECIMENOrdering Facility: [facility] Address: [address] [place] [address] Result Comment: The [place] Diabetes Association (ADA) provides guidance for cutoff [...] Standards of Medical Care in Diabetes 2016, [place] Diabetes Association. Diabetes Care. 2016.39(Suppl 1). Performed By: #### 2 4320-06, ####[facility] [id number] [place] [id number] [place] Potassium [Moles/Vol] 4.2 mmol/L Normal 3.7-5.1 [facility] Comment on above: Order Comment: Lenard jesus Type: BLOOD SPECIMENOrdering Facility: [facility] Address: [address] [place] [id number] Performed By: #### 2 432-, ####[facility]IA [id number] [place] [address] [place] Sodium [Moles/Vol] 142 mmol/L Normal 136-144 [facility] Comment on above: Order Comment: Speci men Type: BLOOD SPECIMENOrdering Facility: [facility] Address: [address] [place] [address] Performed By: #### 2 4321-2, ####[facility] [id number] [place] [address] [place] Urea nitrogen [Mass/Vol] 30 mg/dL High 7-21 [facility] Comment on above: Order Comment: Speci men Type: BLOOD SPECIMENOrdering Facility: [facility] Address: [address] [place], [place] [address] Performed By: #### 2 4321-2, ####[facility] [id number] [place] [id number] [place] Magnesium SerPl-mCncon 07-13 Magnesium [Mass/Vol] 2.1 mg/dL Normal 1.7-2.3 [facility] Comment on above: Order Comment: Speci men Type: BLOOD SPECIMENOrdering Facility: [facility] Address: [address] [place], [place] [address] Performed By: #### 2 4321-2, ####[facility] [id number] [place] [id number] [place] NURSING PROGon 07-14-2023 NURSING PROG HNO ID: [id number] Author: FLORENTINO REBOLLEDO RN Service: ? Author [...] urine. I/O. call mckeon in reach. Normal [facility] NURSING PROG HNO ID: [id number] Author: MEENA [place] RN Service: Nursing Author Type: Registered Nurse Type: Nursing Progress Note Filed: 07/14/2023 11:10 Note Text: Transfer Note: PATIENT NAME: Sandra Schmitz [id number]: Dr. Penaloza, Dr. Silva, and Jose Hill, WILLIAM all visited pt this am and updates given; orders rec'd. Pt's family at bedside. 1055: Patient transferred out to room/unit 3P318/CPPU to [place] [address] in stable condition via wheelchair. Actions taken: Report given/called to CARO Swartz. Pt's family with pt. And took pt belongings. Normal [facility] Basic metabolic 2000 panelon 07-13-2023 Anion gap [Moles/Vol] 9 mmol/L Normal 9-18 [facility] Comment on above: Order Comment: Speci men Type: BLOOD SPECIMENOrdering Facility: [facility] Address: [address] [place] [address] Performed By: #### 2 777-1, 09466-6, 97753-9, 28522-3 ####[facility] [id number] [place] [address] [place] Calcium [Mass/Vol] 9.3 mg/dL Normal 8.5-10.2 [facility] Comment on above: Order Comment: Speci men Type: BLOOD SPECIMENOrdering Facility: [facility] Address: [address] [place] [address] Performed By: #### 2 777-1, 55897-1, 48220-3, ####[facility] [id number] [place] [id number] [place] Chloride [Moles/Vol] 102 mmol/L Normal 97-105 [facility] Comment on above: Order Comment: Speci men Type: BLOOD SPECIMENOrdering Facility: [facility] Address: [address] [place] [address] Performed By: #### 2 777-1, 09701-1, 69611-8, ####[facility] [id number] [place] [id number] [place] CO2 [Moles/Vol] 30 mmol/L Normal 22-30 [facility] Comment on above: Order Comment: Speci men Type: BLOOD SPECIMENOrdering Facility: [facility] Address: [address] [place] [address] Performed By: #### 2 777-1, 13154-1, 45019-2, ####[facility] [id number] [place] [id number] [place] Creatinine [Mass/Vol] 1.05 mg/dL High 0.58-0.96 [facility] Comment on above: Order Comment: Speci men Type: BLOOD SPECIMENOrdering Facility: [facility] Address: [address] [place] [address] Performed By: #### 2 777-1, 16545-1, 42463-3, ####[facility] [id number] [place] [id number] [place] Creatinine and Glomerular filtration rate.predicted panel (S/P/Bld) 55 mL/min/1.73m??? Low >=60 [facility] Comment on above: Order Comment: Speci men Type: BLOOD SPECIMENOrdering Facility: [facility] Address: [address] [place] [address] Result Comment: Aaron mated Glomerular Filtration Rate [...] actual GFR. Performed By: #### 2 777-1, 08679-1, 41580-4, ####[facility]ORATORYCLIA [id number] [place] [id number] [place] Glucose [Mass/Vol] 94 mg/dL Normal 74-99 [facility] Comment on above: Order Comment: Lenard jesus Type: BLOOD SPECIMENOrdering Facility: [facility] Address: [address] [place] [address] Result Comment: The [place] Diabetes Association (ADA) provides guidance for cutoff [...] Standards of Medical Care in Diabetes 2016, [place] Diabetes Association. Diabetes Care. 2016.39(Suppl 1). Performed By: #### 2 777-1, 03864-9, 97054-0, 94742-3 ####[facility]ORATORYCLIA [id number] [place] [id number] [place] Potassium [Moles/Vol] 4.7 mmol/L Normal 3.7-5.1 [facility] Comment on above: Order Comment: Lenard jesus Type: BLOOD SPECIMENOrdering Facility: [facility] Address: [address] [place] [address] Performed By: #### 2 777-1, 24280-2, 97398-1, 81704-1 ####[facility]IA [id number] [place] [address] [place] Sodium [Moles/Vol] 141 mmol/L Normal 136-144 [facility] Comment on above: Order Comment: Speci men Type: BLOOD SPECIMENOrdering Facility: [facility] Address: [address] [place] [address] Performed By: #### 2 777-1, 02764-2, 16751-9, 67606-1 ####[facility] [id number] [place] [id number] [place] Urea nitrogen [Mass/Vol] 37 mg/dL High 7- [facility] Comment on above: Order Comment: Speci men Type: BLOOD SPECIMENOrdering Facility: [facility] Address: [address] [place] [address] Performed By: #### 2 777-1, 16189-6, 86643-8, 44909-5 ####[facility]CLIA [id number] [place] [id number] 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 Per EMR pt. Is waiting for a bed at [facility]. CM will remain available should any further discharge planning needs arise. SIGNATURE: CLARA Luna PATIENT NAME: Sandra Schmitz DATE: July 13, 2023 TIME: 10:58 AM PAGER/CONTACT #: [facility] CBC W Auto Differential pane l (Bld)on 07-13-2023 Basophils (Bld) [#/Vol] 0.07 10*3/uL Normal <0.11 [facility] Comment on above: Order Comment: Speci men Type: BLOOD SPECIMENOrdering Facility: [facility] Address: [address] [place] [address] Performed By: #### 5 7021-8 ####[facility]ORATORYCLIA [id number] [place] [address] [place] Basophils/100 WBC (Bld) 0.9 % Normal [facility] Comment on above: Order Comment: Speci men Type: BLOOD SPECIMENOrdering Facility: [facility] Address: [address] [place] [address] Performed By: #### 5 7021-8 ####[facility]ORYCLIA [id number] [place] [address] [place] Differential cell count method Nom (Bld) Auto Normal [facility] Comment on above: Order Comment: Speci men Type: BLOOD SPECIMENOrdering Facility: [facility] Address: [address] [place] [address] Performed By: #### 5 7021-8 ####[facility]ORYCLIA [id number] [place] [address] [place] Eosinophils (Bld) [#/Vol] 0.23 10*3/uL Normal <0.46 [facility] Comment on above: Order Comment: Speci men Type: BLOOD SPECIMENOrdering Facility: [facility] Address: [address] [place] [address] Performed By: #### 5 7021-8 ####[facility]ORYCLIA [id number] [place] [address] [place] Eosinophils/100 WBC (Bld) 3.0 % Normal [facility] Comment on above: Order Comment: Speci men Type: BLOOD SPECIMENOrdering Facility: [facility] Address: [address] [place] [address] Performed By: #### 5 7021-8 ####[facility]ORYCLIA [id number] [place] [address] [place] Erythrocyte distribution width (RBC) [Ratio] 14.7 % Normal 11.5-15.0 [facility] Comment on above: Order Comment: Speci men Type: BLOOD SPECIMENOrdering Facility: [facility] Address: [address] [place] [address] Performed By: #### 5 7021-8 ####[facility]ORATORYCLIA [id number] [place] [address] [place] Hematocrit (Bld) [Volume fraction] 37.5 % Normal 36.0-46.0 [facility] Comment on above: Order Comment: Speci men Type: BLOOD SPECIMENOrdering Facility: [facility] Address: [address] [place] [address] Performed By: #### 5 7021-8 ####[facility]ORATORYCLIA [id number] [place] [address] [place] Hemoglobin (Bld) [Mass/Vol] 12.0 g/dL Normal 11.5-15.5 [facility] Comment on above: Order Comment: Speci men Type: BLOOD SPECIMENOrdering Facility: [facility] Address: [address] [place] [address] Performed By: #### 5 7021-8 ####[facility]ORATORYCLIA [id number] [place] [address] [place] Immature granulocytes (Bld) [#/Vol] 0.04 10*3/uL Normal <0.10 [facility] Comment on above: Order Comment: Speci men Type: BLOOD SPECIMENOrdering Facility: [facility] Address: [address] [place] [address] Performed By: #### 5 7021-8 ####[facility]ORATORYCLIA [id number] [place] [address] [place] Immature granulocytes/100 WBC (Bld) 0.5 % Normal [facility] Comment on above: Order Comment: Speci men Type: BLOOD SPECIMENOrdering Facility: [facility] Address: [address] [place] [address] Performed By: #### 5 7021-8 ####[facility]ORATORYCLIA [id number] [place] [address] [place] Lymphocytes (Bld) [#/Vol] 2.98 10*3/uL Normal 1.00-4.00 [facility] Comment on above: Order Comment: Speci men Type: BLOOD SPECIMENOrdering Facility: [facility] Address: [address] [place] [address] Performed By: #### 5 7021-8 ####[facility]ORATORYCLIA [id number] [address] Lymphocytes/100 WBC (Bld) 39.4 % Normal [facility] Comment on above: Order Comment: Speci men Type: BLOOD SPECIMENOrdering Facility: [facility] Address: [address] [place] [address] Performed By: #### 5 7021-8 ####[facility]ORATORYCLIA [id number] [address] MCH (RBC) [Entitic mass] 29.4 pg Normal 26.0-34.0 [facility] Comment on above: Order Comment: Speci men Type: BLOOD SPECIMENOrdering Facility: [facility] Address: [address] [place] [address] Performed By: #### 5 7021-8 ####[facility]ORATORYCLIA [id number] [address] MCHC (RBC) [Mass/Vol] 32.0 g/dL Normal 30.5-36.[address] [facility] Comment on above: Order Comment: Speci men Type: BLOOD SPECIMENOrdering Facility: [facility] Address: [address] [place] [address] Performed By: #### 5 7021-8 ####[facility]ORATORYCLIA [id number] [address] MCV (RBC) [Entitic vol] 91.9 fL Normal 80.0-100.0 [facility] Comment on above: Order Comment: Speci men Type: BLOOD SPECIMENOrdering Facility: [facility] Address: [address] [place] [address] Performed By: #### 5 7021-8 ####[facility]ORATORYCLIA [id number] [address] [place] Monocytes (Bld) [#/Vol] 0.72 10*3/uL Normal <0.87 [facility] Comment on above: Order Comment: Speci men Type: BLOOD SPECIMENOrdering Facility: [facility] Address: [address] [place] [address] Performed By: #### 5 7021-8 ####[facility]ORATORYCLIA [id number] [place] [address] [place] Monocytes/100 WBC (Bld) 9.5 % Normal [facility] Comment on above: Order Comment: Speci men Type: BLOOD SPECIMENOrdering Facility: [facility] Address: [address] [place] [address] Performed By: #### 5 7021-8 ####KO LABORATORYCLIA [id number] [place] [address] [place] Neutrophils (Bld) [#/Vol] 3.52 10*3/uL Normal 1.45-7.50 [facility] Comment on above: Order Comment: Speci men Type: BLOOD SPECIMENOrdering Facility: [facility] Address: [address] [place] [address] Performed By: #### 5 7021-8 ####KO LABORATORYCLIA [id number] [address] [place] Neutrophils/100 WBC (Bld) 46.7 % Normal [facility] Comment on above: Order Comment: Speci men Type: BLOOD SPECIMENOrdering Facility: [facility] Address: [address] [place] [address] Performed By: #### 5 7021-8 ####KO LABORATORYCLIA [id number] [place] [address] [place] Nucleated RBC (Bld) [#/Vol] 10*3/uL Normal <0.01 [facility] Comment on above: Order Comment: Speci men Type: BLOOD SPECIMENOrdering Facility: [facility] Address: [address] [place] [address] Performed By: #### 5 7021-8 ####KO LABORATORYCLIA [id number] [place] [address] [place] Nucleated RBC/100 WBC (Bld) [Ratio] 0.0 /100 WBC Normal [facility] Comment on above: Order Comment: Speci men Type: BLOOD SPECIMENOrdering Facility: [facility] Address: [facility] [place] [address] Performed By: #### 5 7021-8 ####KO LABORATORYCLIA [id number] [place] [address] [place] Platelet mean volume (Bld) [Entitic vol] 10.1 fL Normal 9.0-12.7 [facility] Comment on above: Order Comment: Speci men Type: BLOOD SPECIMENOrdering Facility: [facility] Address: [address] [place] [address] Performed By: #### 5 7021-8 ####KO LABORATORYCLIA [id number] [place] [address] [place] Platelets (Bld) [#/Vol] 270 10*3/uL Normal 150-400 [facility] Comment on above: Order Comment: Speci men Type: BLOOD SPECIMENOrdering Facility: [facility] Address: [address] [place] [address] Performed By: #### 5 7021-8 ####KO LABORATORYCLIA [id number] [place] [address] [place] RBC (Bld) [#/Vol] 4.08 10*6/uL Normal 3.90-5.20 [facility] Comment on above: Order Comment: Speci men Type: BLOOD SPECIMENOrdering Facility: [facility] Address: [address] [place] [address] [place] [address] Performed By: #### 5 7021-8 ####KO LABORATORYCLIA [id number] [place] [address] [place] WBC (Bld) [#/Vol] 7.56 10*3/uL Normal 3.70-11.00 [facility] Comment on above: Order Comment: Speci men Type: BLOOD SPECIMENOrdering Facility: [facility] Address: [address] [place] [address] Performed By: #### 5 7021-8 ####KO LABORATORYCLIA [id number] [place] [address] [place] CBC panel Auto (Bld)on 07-12 Erythrocyte distribution width (RBC) [Ratio] 14.6 % Normal 11.5-15.0 [facility] Comment on above: Order Comment: Speci men Type: BLOOD SPECIMEN [facility] Address: [address] [place] [address] Performed By: #### 5 8410-2 #### [facility] CLIA [id number] [address] [place] [address] [place] Hematocrit (Bld) [Volume fraction] 41.7 % Normal 36.0-46.0 [facility] Comment on above: Order Comment: Speci men Type: BLOOD SPECIMEN [facility] Address: [address] [place] [address] Performed By: #### 5 8410-2 #### [facility] CLIA [id number] [address] [place] [address] [place] Hemoglobin (Bld) [Mass/Vol] 13.3 g/dL Normal 11.5-15.5 [facility] Comment on above: Order Comment: Speci men Type: BLOOD SPECIMEN [facility] Address: [address] [place] [address] Performed By: #### 5 8410-2 #### [facility] CLIA [id number] [address] [place] [address] [place] MCH (RBC) [Entitic mass] 29.4 pg Normal 26.0-34.0 [facility] Comment on above: Order Comment: Speci men Type: BLOOD SPECIMEN [facility] Address: [address] [place] [address] Performed By: #### 5 8410-2 #### [facility] CLIA [id number] [address] [place] [address] [place] MCHC (RBC) [Mass/Vol] 31.9 g/dL Normal 30.5-36.0 [facility] Comment on above: Order Comment: Speci men Type: BLOOD SPECIMEN [facility] Address: [address] [place] [address] Performed By: #### 5 8410-2 #### [facility] CLIA [id number] [address] [place] [address] [place] MCV (RBC) [Entitic vol] 92.1 fL Normal 80.0-100.0 [facility] Comment on above: Order Comment: Speci men Type: BLOOD SPECIMEN [facility] Address: [address] [place] [address] Performed By: #### 5 8410-2 #### [facility] CLIA [id number] [address] [place] [address] [place] Nucleated RBC (Bld) [#/Vol] 10*3/uL Normal <0.01 [facility] Comment on above: Order Comment: Speci men Type: BLOOD SPECIMEN [facility] Address: [address] [place] [address] Performed By: #### 5 8410-2 #### [facility] CLIA [id number] [address] [place] [address] [place] Platelet mean volume (Bld) [Entitic vol] 10.3 fL Normal 9.0-12.7 [facility] Comment on above: Order Comment: Speci men Type: BLOOD SPECIMEN [facility] Address: [address] [place] [address] Performed By: #### 5 8410-2 #### [facility] CLIA [id number] [address] [place] [address] [place] Platelets (Bld) [#/Vol] 299 10*3/uL Normal 150-400 [facility] Comment on above: Order Comment: Speci men Type: BLOOD SPECIMEN [facility] Address: [address] [place] [address] Performed By: #### 5 8410-2 #### [facility] CLIA [id number] [address] [place] [address] [place] RBC (Bld) [#/Vol] 4.53 10*6/uL Normal 3.90-5.20 [facility] Comment on above: Order Comment: Lenard jesus Type: BLOOD SPECIMEN [facility] Address: [address] [place] [address] Performed By: #### 5 8410-2 #### [facility] CLIA [id number] [address] [place] [id number] [place] WBC (Bld) [#/Vol] 8.78 10*3/uL Normal 3.70-11.00 [facility] Comment on above: Order Comment: Lenard men Type: BLOOD SPECIMEN [facility] Address: [address] [place] [address] Performed By: #### 5 8410-2 #### [facility] CLIA [id number] [place], [place] [address] [place] CK SerPl-cCncon 07-13-2023 CK [Catalytic activity/Vol] 51 U/L Normal 42-196 [facility] Comment on above: Order Comment: Lenard jesus Type: BLOOD SPECIMENOrdering Facility: [facility] Address: [address] [place] [address] Performed By: #### 1 9123-9, 66037-7, 2157-6 ####MULBERRY LABORATORYCLIA [id number] [place] [id number] [place] CNDSon 07-13-2023 CNDS HNO ID: [id number] Author: REMINGTON CAI MD Service: Hospital Medicine [...] Team: Attending Provider: Remington Cai MD Consulting: Álvaor Lobo MD MY CONDITION AT DISCHARGE: Serious condition meaning subject to change unexpectedly REASON I WAS IN THE HOSPITAL: Acute decompensated heart failure SUMMARY OF WHAT HAPPENED WHILE I WAS IN THE HOSPITAL: Able to be diuresed with Lasix but unable to tolerate Entresto or beta-lorenzo. Unable to schedule pacer defibrillator and [place] and contacted [facility] in August to have Dr. Wellington [...] pacer defibrillator plan to be done at [place] Disposition: Transfer to [place] on [facility] with consult to Dr. Dilcia Wellington [...] (more content not included)... Normal [facility] CNPNon 07-13-2023 CNPN Telephone (FVPRAD) ----- SANDRA SCHMITZ ([id number]) 1945 [place] Date Time Provider Department 07/13/23 RAHUL BEE During your visit today, we recorded the following information about you: Rahul Bee MD 07/13/2023 7:28 AM Signed Hospital Medicine Transfer Received page for transfer request from [facility] to [facility]: Sandra Schmitz is 77 year old female who presented with non ischemic decompensated heart failure EF 26%. Suspected runs of tachycardia of unclear origin. Being transferred for possible DISTRICT FIRE MANAGEMENT OFFICER. Cannot tolerate betablocker. Currently SBP in 100s. No ICD before. Mild CAD. Reason for transfer: Possible DISTRICT FIRE MANAGEMENT OFFICER placement Accepted to hospital medicine service at [...] Assessed Reason for Visit: Hospital To Hospital [[id number]] Prescriptions as of 07/13/2023 - metoprolol succinate [...] dysfunction of (more content not included)... Normal [facility] CONSULTon 07-13-2023 CONSULT HNO ID: [id number] Author: BRUNO PENALOZA MD Service: Electrophysiology Author Type: Physician Type: Consults Filed: 07/14/2023 11:43 Note Text: [facility]ARDI[facility]ULAR [facility]ICINE CONSULT NOTE Sandra Schmitz [id number] PRIMARY SERVICE: Internal Medicine CONSULTING SERVICE: Cardiovascular Medicine: Electrophysiology DATE OF ADMISSION: 07/13/2023 DATE OF CONSULT: 07/13/2023 REASON FOR CONSULT Consideration for DISTRICT FIRE MANAGEMENT OFFICER-D HISTORY OF PRESENT ILLNESS Sandra Schmitz is a 77 year old female, who presented initially to [facility] due to concerns for chest pressure with associated postural lightheadedness and bendopnea. Shew as subsequently admitted for further evaluation and management. She underwent lexiscan which was negative for inducible ischemia and transthoracic echocardiogram demonstrated persistently reduced ejection fraction of <35%. There was difficulty initiating GDMT due to hypotension and bradycardia. Thus [facility] EP was consutled for consideration for inpatient DISTRICT FIRE MANAGEMENT OFFICER implantation given her longstanding LBBB, dating back [...] EC tabletTak (more content not included)... Normal [facility] ECG COMPLETEon 07-13-2023 ECG COMPLETE Ventricular Rate : 5 8 BPM Atrial Rate : 58 BPM P-R Interval : 148 ms QRS Duration : 177 ms Q-T Interval : 485 ms QTC Calculation(Bazett) : 477 ms Calculated P Quartzsite : 36 degrees Calculated R Quartzsite : -23 degrees Calculated T Quartzsite : 151 degrees Sinus rhythm Left bundle branch block Confirmed by ROSALIA WARNER MD ([id number]) on 08/23/2023 1:01:19 PM NAME : SANDRA SCHMITZ PID : [id number] : 1945 Gender : Female Race : ORD : [id number] Procedure Date : Jul 13 2023 17:24:10 Edit Date : Aug 23 2023 13:01:20 Diagnosis: Sinus rhythm Left bundle branch block Confirmed by ROSALIA WARNER MD ([id number]) on 08/23/2023 1:01:19 PM Test Reason : Shortness of Breath Location : 400 : FVEKG 3P31 Overread By : ROSALIA WARNER MD Edited By : ROSALIA WARNER MD Referred By : REMINGTON CAI Acquired by : ILDEFONSO SANCHEZ [facility] HISTORY PHYSICALon HISTORY PHYSICAL HNO ID: [id number] Author: LOUISA CAMP DO Service: Hospital Medicine Author Type: Physician Type: H&P Filed: 07/13/2023 18:22 Note Text: Hospital Medicine Admission History and Physical PRIMARY SERVICE: HOSPITAL MEDICINE Days: Page or epic chat me directly Evenings: Page hospital medicine pager [phone] PATIENT NAME: Sandra Schmitz DATE of SERVICE: July 13, 2023 TIME of SERVICE: 3:14 PM PCP: Mandeep Houser CODE STATUS: No Order ASSESSMENT/PLAN SUMMARY: 77yo female PMH HFrEF, LBBB, hypothyroidism, initially admitted to [facility] for acute on chronic HFrEF. She was stabilized with IV diuresis however course complicated by hypotension and bradycardia. She was transferred to [facility] for biventricular pacer defibrillator placement Acute [...] fibrillation. She has seen Dr. Greenfield the rehab rn. She is to be scheduled for pacer [...] tried to get the procedure scheduled in [place] but they had no openings and Dr. Castro was able to contact Dr. Wellington and patient will be transferred to [facility] on hospital medicine service for her [...] and is agreeable to current plan. Normal [facility] Magnesium [facility] 07-12 Magnesium [Mass/Vol] 2.1 mg/dL Normal 1.7-2.3 [facility] Comment on above: Order Comment: Speci men Type: BLOOD SPECIMENOrdering Facility: [facility] Address: [address] [place] [address] Performed By: #### 2 777-1, 09468-8, 13186-2, 28688-6 ####[place] [facility]ORATORYCLIA [id number] [address] [place] Magnesium [Mass/Vol] 2.1 mg/dL Normal 1.7-2.3 [facility] Comment on above: Order Comment: Speci men Type: BLOOD SPECIMENOrdering Facility: [facility] Address: [address] [place] [address] Performed By: #### 1 9123-9, 79988-4, 215-6 ####MULBERRY LABORATORYCLIA [id number] [place] [address] [place] [facility]12 Natriuretic peptide.B prohormone N-Terminal [Mass/Vol] 2522 pg/mL High <450 [facility] Comment on above: Order Comment: Speci men Type: BLOOD SPECIMENOrdering Facility: [facility] Address: [address] [place] [address] Performed By: #### 2 777-1, 80597-3, 77497-7, 58594-1 ####[place] [facility]ORATORYCLIA [id number] [place] [id number] [facility] NURSING PROGon 07-13-2023 NURSING PROG HNO ID: [id number] Author: MARY LOU CRUZ RN Service: Nursing Author Type: Registered Nurse Type: Nursing Progress Note Filed: 07/13/2023 16:48 Note Text: 1425 Pt arrived to unit with transport from [facility] in stable condition. Tele SR on monitor. Pt oriented to unit and plan of care 1600 Dr. Camp into see pt. Attempting to wean O2 at this time [facility] NURSING PROG HNO ID: [id number] Author: MISTY ASCENCIO, RN Service: Nursing Author Type: Registered Nurse Type: Nursing Progress Note Filed: 07/13/2023 11:31 Note Text: PATIENT EDUCATION HEART FAILURE PATIENT NAME: Sandra Schmitz PATIENT LOCATION: [place] [id number] SURVIVAL SKILLS: Low Sodium Diet Weight Monitoring and Dry Weight Importance of Follow Up after Discharge Fluid Restriction, if applicable Heart Failure Medications Symptom Management related to heart failure Activity / Physical Exercise Recommendations Smoking cessation counseling if applicable When Patient Should Call Provider Follow up visit for CHF education. Survival Skills revieved. No questions @ this time. Awaiting transfer to [facility]. Electronically Signed By: Misty Ascencio [facility] Phosphate SerPl-ncon 07-12 Phosphate [Mass/Vol] 3.1 mg/dL Normal 2.7-4.8 [facility] Comment on above: Order Comment: Speci men Type: BLOOD SPECIMENOrdering Facility: [facility] Address: [address] [place] [address] Performed By: #### 2 777-1, 76494-7, 23281-3, ####[facility] LABORATORYCLIA [id number] [place] [id number] [place] Renal function 2000 panelon 07-13-2023 Albumin [Mass/Vol] 3.8 g/dL Low 3.9-4.9 [facility] Comment on above: Order Comment: Speci men Type: BLOOD SPECIMENOrdering Facility: [facility] Address: [address] [place] [address] Performed By: #### 1 9123-9, 58191-8, 2156-10 ####M[facility] LABORATORYCLIA [id number] [place] [address] [place] Anion gap [Moles/Vol] 9 mmol/L Normal 9-[address] [facility] Comment on above: Order Comment: Speci men Type: BLOOD SPECIMENOrdering Facility: [facility] Address: [address] [place] [address] Performed By: #### 1 9123-9, , 2156-10 ####MUL[facility] LABORATORYCLIA [id number] [place] [address] [place] Calcium [Mass/Vol] 9.1 mg/dL Normal 8.5-10.2 [facility] Comment on above: Order Comment: Speci men Type: BLOOD SPECIMENOrdering Facility: [facility] Address: [address] [place] [address] Performed By: #### 1 9123-9, , 2156-10 ####M[facility] LABORATORYCLIA [id number] [place] [address] [place] Chloride [Moles/Vol] 103 mmol/L Normal 97-105 [facility] Comment on above: Order Comment: Speci men Type: BLOOD SPECIMENOrdering Facility: [facility] Address: [address] [place] [address] Performed By: #### 1 9123-9, 90817-6, 2156-10 ####KO LABORATORYCLIA [id number] [place] [address] [place] CO2 [Moles/Vol] 31 mmol/L High 22-30 [facility] Comment on above: Order Comment: Lenard jesus Type: BLOOD SPECIMENOrdering Facility: [facility] Address: [address] [place] [address] Performed By: #### 1 9123-9, 16318-7, 2156-10 ####[facility] LABORATORYCLIA [id number] [place] [id number] [place] Creatinine [Mass/Vol] 1.02 mg/dL High 0.58-0.[address] [facility] Comment on above: Order Comment: Lenard jesus Type: BLOOD SPECIMENOrdering Facility: [facility] Address: [address] [place] [address] Performed By: #### 1 9123-9, , 2156-10 ####M[facility] LABORATORYCLIA [id number] [place] [id number] [place] Creatinine and Glomerular filtration rate.predicted panel (S/P/Bld) 57 mL/min/1.73m??? Low >=60 [facility] Comment on above: Order Comment: [facility] Type: BLOOD SPECIMENOrdering Facility: [facility] Address: [address] [place] [address] Result Comment: Aaron mated Glomerular Filtration Rate [...] actual GFR. Performed By: #### 1 9123-9, 34047-4, 2156-10 ####[facility] LABORATORYCLIA [id number] [place] [id number] [place] Glucose [Mass/Vol] 91 mg/dL Normal 74-99 [facility] Comment on above: Order Comment: [facility] Type: BLOOD SPECIMENOrdering Facility: [facility] Address: [address] [place] [address] Result Comment: The [place] Diabetes Association (ADA) provides guidance for cutoff [...] Standards of Medical Care in Diabetes 2016, [place] Diabetes Association. Diabetes Care. 2016.39(Suppl 1). Performed By: #### 1 9123-9, , 2156-10 ####[facility] LABORATORYCLIA [id number] [place] [address] [place] Phosphate [Mass/Vol] 3.2 mg/dL Normal 2.7-4.8 [facility] Comment on above: Order Comment: Lenard jesus Type: BLOOD SPECIMENOrdering Facility: [facility] Address: [address] [place] [address] Performed By: #### 1 9123-9, , 2156-10 ####KO LABORATORYCLIA [id number] [place] [address] [place] Potassium [Moles/Vol] 4.3 mmol/L Normal 3.7-5.[address] [facility] Comment on above: Order Comment: Lenard jesus Type: BLOOD SPECIMENOrdering Facility: [facility] Address: [address] [place] [address] Performed By: #### 1 9123-9, , 2156-10 ####KO LABORATORYCLIA [id number] [place] [id number] [place] Sodium [Moles/Vol] 143 mmol/L Normal 136-144 [facility] Comment on above: Order Comment: Lenard jesus Type: BLOOD SPECIMENOrdering Facility: [facility] Address: [address] [place] [address] Performed By: #### 1 9123-9, , 2156-10 ####KO LABORATORYCLIA [id number] [place] [id number] [place] Urea nitrogen [Mass/Vol] 33 mg/dL High 7- [facility] Comment on above: Order Comment: Speci edin Type: BLOOD SPECIMENOrdering Facility: [facility] Address: [address] [place] [address] Performed By: #### 1 9123-9, 72743-7, 2157-6 ####[facility] LABORATORYCLIA [id number] [place] [id number] [place] XR CHEST 2V [...] is unremarkable. IMPRESSION: No acute cardiopulmonary process. Cartographic Aide: PSCB Transcribe Date/Time: Jul 13 2023 5:02P Dictated by : LILI MARSH MD This examination was interpreted and the report reviewed and electronically signed by: LILI MARSH MD on Jul 13 2023 5:03PM EST [id number] Normal [facility] CBC W Auto Differential pane l (Bld)on 07-12-2023 Basophils (Bld) [#/Vol] 0.08 10*3/uL Normal <0.11 [facility] Comment on above: Order Comment: Speci edin Type: BLOOD SPECIMENOrdering Facility: [facility] Address: [address] [place] [address] Performed By: #### 5 7021-8 ####[facility] LABORATORYCLIA [id number] [place] [id number] [place] Basophils/100 WBC (Bld) 1.0 % Normal [facility] Comment on above: Order Comment: Speci men Type: BLOOD SPECIMENOrdering Facility: [facility] Address: [address] [place] [address] Performed By: #### 5 7021-8 ####KO LABORATORYCLIA [id number] [address] [place] Differential cell count method Nom (Bld) Auto Normal [facility] Comment on above: Order Comment: Speci men Type: BLOOD SPECIMENOrdering Facility: [facility] Address: [address] [place] [address] Performed By: #### 5 7021-8 ####KO LABORATORYCLIA [id number] [place] [address] [place] Eosinophils (Bld) [#/Vol] 0.27 10*3/uL Normal <0.46 [facility] Comment on above: Order Comment: Speci men Type: BLOOD SPECIMENOrdering Facility: [facility] Address: [address] [place] [address] Performed By: #### 5 7021-8 ####[facility] LABORATORYCLIA [id number] [address] [place] Eosinophils/100 WBC (Bld) 3.5 % Normal [facility] Comment on above: Order Comment: Speci men Type: BLOOD SPECIMENOrdering Facility: [facility] Address: [address] [place] [address] Performed By: #### 5 7021-8 ####[facility] LABORATORYCLIA [id number] [address] [place] Erythrocyte distribution width (RBC) [Ratio] 14.8 % Normal 11.5-15.0 [facility] Comment on above: Order Comment: Speci men Type: BLOOD SPECIMENOrdering Facility: [facility] Address: [address] [place] [address] Performed By: #### 5 7021-8 ####[facility] LABORATORYCLIA [id number] [address] [place] Hematocrit (Bld) [Volume fraction] 38.9 % Normal 36.0-46.0 [facility] Comment on above: Order Comment: Speci men Type: BLOOD SPECIMENOrdering Facility: [facility] Address: [address] [place] [address] Performed By: #### 5 7021-8 ####KO LABORATORYCLIA [id number] [place] [address] [place] Hemoglobin (Bld) [Mass/Vol] 12.2 g/dL Normal 11.5-15.5 [facility] Comment on above: Order Comment: Speci men Type: BLOOD SPECIMENOrdering Facility: [facility] Address: [address] [place] [address] Performed By: #### 5 7021-8 ####KO LABORATORYCLIA [id number] [place] [address] [place] Immature granulocytes (Bld) [#/Vol] 0.03 10*3/uL Normal <0.10 [facility] Comment on above: Order Comment: Speci men Type: BLOOD SPECIMENOrdering Facility: [facility] Address: [address] [place] [address] Performed By: #### 5 7021-8 ####KO LABORATORYCLIA [id number] [place] [address] [place] Immature granulocytes/100 WBC (Bld) 0.4 % Normal [facility] Comment on above: Order Comment: Speci men Type: BLOOD SPECIMENOrdering Facility: [facility] Address: [address] [place] [address] Performed By: #### 5 7021-8 ####KO LABORATORYCLIA [id number] [place] [address] [place] Lymphocytes (Bld) [#/Vol] 2.73 10*3/uL Normal 1.00-4.00 [facility] Comment on above: Order Comment: Speci men Type: BLOOD SPECIMENOrdering Facility: [facility] Address: [address] [place] [address] Performed By: #### 5 7021-8 ####KO LABORATORYCLIA [id number] [address] [place] Lymphocytes/100 WBC (Bld) 35.5 % Normal [facility] Comment on above: Order Comment: Speci men Type: BLOOD SPECIMENOrdering Facility: [facility] Address: [address] [place] [address] Performed By: #### 5 7021-8 ####KO LABORATORYCLIA [id number] [place] [address] [place] MCH (RBC) [Entitic mass] 28.8 pg Normal 26.0-34.0 [facility] Comment on above: Order Comment: Speci men Type: BLOOD SPECIMENOrdering Facility: [facility] Address: [address] [place] [address] Performed By: #### 5 7021-8 ####KO LABORATORYCLIA [id number] [place] [address] [place] MCHC (RBC) [Mass/Vol] 31.4 g/dL Normal 30.5-36.[address] [facility] Comment on above: Order Comment: Speci men Type: BLOOD SPECIMENOrdering Facility: [facility] Address: [address] [place] [address] Performed By: #### 5 7021-8 ####KO LABORATORYCLIA [id number] [address] [place] MCV (RBC) [Entitic vol] 92.0 fL Normal 80.0-100.0 [facility] Comment on above: Order Comment: Speci men Type: BLOOD SPECIMENOrdering Facility: [facility] Address: [address] [place] [address] Performed By: #### 5 7021-8 ####KO LABORATORYCLIA [id number] [place] [address] [place] Monocytes (Bld) [#/Vol] 0.76 10*3/uL Normal <0.87 [facility] Comment on above: Order Comment: Speci men Type: BLOOD SPECIMENOrdering Facility: [facility] Address: [address] [place] [address] Performed By: #### 5 7021-8 ####KO LABORATORYCLIA [id number] [address] [place] Monocytes/100 WBC (Bld) 9.9 % Normal [facility] Comment on above: Order Comment: Speci men Type: BLOOD SPECIMENOrdering Facility: [facility] Address: [address] [place] [address] Performed By: #### 5 7021-8 ####KO LABORATORYCLIA [id number] [place] [address] [place] Neutrophils (Bld) [#/Vol] 3.82 10*3/uL Normal 1.45-7.50 [facility] Comment on above: Order Comment: Speci men Type: BLOOD SPECIMENOrdering Facility: [facility] Address: [address] [place] [address] Performed By: #### 5 7021-8 ####KO LABORATORYCLIA [id number] [place] [address] [place] Neutrophils/100 WBC (Bld) 49.7 % Normal [facility] Comment on above: Order Comment: Speci men Type: BLOOD SPECIMENOrdering Facility: [facility] Address: [address] [place] [address] Performed By: #### 5 7021-8 ####KO LABORATORYCLIA [id number] [place] [address] [place] Nucleated RBC (Bld) [#/Vol] 10*3/uL Normal <0.01 [facility] Comment on above: Order Comment: Speci men Type: BLOOD SPECIMENOrdering Facility: [facility] Address: [address] [place] [address] Performed By: #### 5 7021-8 ####KO LABORATORYCLIA [id number] [place] [address] [place] Nucleated RBC/100 WBC (Bld) [Ratio] 0.0 /100 WBC Normal [facility] Comment on above: Order Comment: Speci men Type: BLOOD SPECIMENOrdering Facility: [facility] Address: [address] [place] [address] Performed By: #### 5 7021-8 ####KO LABORATORYCLIA [id number] [place] [address] [place] Platelet mean volume (Bld) [Entitic vol] 10.2 fL Normal 9.0-12.7 [facility] Comment on above: Order Comment: Speci men Type: BLOOD SPECIMENOrdering Facility: [facility] Address: [address] [place] [address] Performed By: #### 5 7021-8 ####KO LABORATORYCLIA [id number] [address] Platelets (Bld) [#/Vol] 273 10*3/uL Normal 150-400 [facility] Comment on above: Order Comment: Speci men Type: BLOOD SPECIMENOrdering Facility: [facility] Address: [address] [place] [address] Performed By: #### 5 7021-8 ####KO LABORATORYCLIA [id number] [address] [place] RBC (Bld) [#/Vol] 4.23 10*6/uL Normal 3.90-5.20 [facility] Comment on above: Order Comment: Speci men Type: BLOOD SPECIMENOrdering Facility: [facility] Address: [address] [place] [address] Performed By: #### 5 7021-8 ####KO LABORATORYCLIA [id number] [address] WBC (Bld) [#/Vol] 7.69 10*3/uL Normal 3.70-11.00 [facility] Comment on above: Order Comment: Speci men Type: BLOOD SPECIMENOrdering Facility: [facility] Address: [address] [place] [address] Performed By: #### 5 7021-8 ####KO LABORATORYCLIA [id number] [address] [place] CK SerPl-cCncon 07-12-2023 CK [Catalytic activity/Vol] 51 U/L Normal 42-196 [facility] Comment on above: Order Comment: Speci men Type: BLOOD SPECIMENOrdering Facility: [facility] Address: [address] [place] [address] Performed By: #### 2 157-6, 68995-1, 35212-9 ####KO LABORATORYCLIA [id number] [address] [place] ECHOon 07-12-2023 Echocardiography Echocardiography Rep ort: Transthoracic Echo [facility] Date of service: 07/12/2023 11:47:34 AM Ordering physician: ÁLVARO LOBO Indication: Chest Pain Symptom(s): Chest Pain and Shortness of breath Technologist: Jimena George [facility] Interpreting physician: Cony Almonte MD PATIENT: [...] (more content not included)... Normal [facility] Magnesium SerPl-ncon Magnesium [Mass/Vol] 2.1 mg/dL Normal 1.7-2.3 [facility] Comment on above: Order Comment: Speci men Type: BLOOD SPECIMENOrdering Facility: [facility] Address: [address] [place], [place] [address] Performed By: #### 2 157-6, 43357-6, ####MULBERRY LABORATORYCLIA [id number] [place] [address] [place] Renal function [address] [place] [address] 07-12-2023 Albumin [Mass/Vol] 3.6 g/dL Low 3.9-4.9 [facility] Comment on above: Order Comment: Speci men Type: BLOOD SPECIMENOrdering Facility: [facility] Address: [address] [place], [place] [address] Performed By: #### 2 157-6, 46515-6, ####MULBERRY LABORATORYCLIA [id number] [place] [address] [place] Anion gap [Moles/Vol] 8 mmol/L Low 9-[address] [facility] Comment on above: Order Comment: Speci men Type: BLOOD SPECIMENOrdering Facility: [facility] Address: [address] [id number] Performed By: #### 2 157-6, 95435-1, ####MULBERRY LABORATORYCLIA [id number] [place] [id number] [place] Calcium [Mass/Vol] 8.8 mg/dL Normal 8.5-10.2 [facility] Comment on above: Order Comment: Speci men Type: BLOOD SPECIMENOrdering Facility: [facility] Address: [address] [place] [address] Performed By: #### 2 157-6, 36875-8, 76135-6 ####KO LABORATORYCLIA [id number] [place] [address] [place] Chloride [Moles/Vol] 103 mmol/L Normal 97-105 [facility] Comment on above: Order Comment: Speci men Type: BLOOD SPECIMENOrdering Facility: [facility] Address: [address] [place] [address] Performed By: #### 2 157-6, 27788-2, 62348-5 ####KO LABORATORYCLIA [id number] [place] [id number] [place] CO2 [Moles/Vol] 28 mmol/L Normal 22-30 [facility] Comment on above: Order Comment: Speci men Type: BLOOD SPECIMENOrdering Facility: [facility] Address: [address] [place] [address] Performed By: #### 2 157-6, 83306-3, ####KO LABORATORYCLIA [id number] [place] [address] [place] Creatinine [Mass/Vol] 0.95 mg/dL Normal 0.58-0.[address] [facility] Comment on above: Order Comment: Speci men Type: BLOOD SPECIMENOrdering Facility: [facility] Address: [address] [place] [address] Performed By: #### 2 157-6, 32350-3, 63431-8 ####KO LABORATORYCLIA [id number] [address] [place] Creatinine and Glomerular filtration rate.predicted panel (S/P/Bld) 62 mL/min/1.73m??? Normal >=60 [facility] Comment on above: Order Comment: Speci men Type: BLOOD SPECIMENOrdering Facility: [facility] Address: [address] [place] [address] Result Comment: Aaron mated Glomerular Filtration Rate [...] actual GFR. Performed By: #### 2 157-6, 58782-3, ####MULBERRY LABORATORYCLIA [id number] [place] [address] [place] Glucose [Mass/Vol] 89 mg/dL Normal 74-99 [facility] Comment on above: Order Comment: Lenard jesus Type: BLOOD SPECIMENOrdering Facility: [facility] Address: [address] [place], [place] [address] Result Comment: The [place] Diabetes Association (ADA) provides guidance for cutoff [...] Standards of Medical Care in Diabetes 2016, [place] Diabetes Association. Diabetes Care. 2016.39(Suppl 1). Performed By: #### 2 157-6, 66476-3, ####MULBERRY LABORATORYCLIA [id number] [place] [address] [place] Phosphate [Mass/Vol] 3.7 mg/dL Normal 2.7-4.8 [facility] Comment on above: Order Comment: Lenard jesus Type: BLOOD SPECIMENOrdering Facility: [facility] Address: [address] [place] [address] Performed By: #### 2 157-6, 83270-7, ####MULBERRY LABORATORYCLIA [id number] [place] [address] [place] Potassium [Moles/Vol] 3.8 mmol/L Normal 3.7-5.[address] [facility] Comment on above: Order Comment: Speci men Type: BLOOD SPECIMENOrdering Facility: [facility] Address: [address] [place], [place] [address] Performed By: #### 2 157-6, 87887-9, 65405-6 ####KO LABORATORYCLIA [id number] [place] [address] [facility] [place] Sodium [Moles/Vol] 139 mmol/L Normal 136-144 [facility] Comment on above: Order Comment: Speci men Type: BLOOD SPECIMENOrdering Facility: [facility] Address: [address] [place] [address] Performed By: #### 2 157-6, 31026-2, 04953-3 ####KO LABORATORYCLIA [id number] [place] [id number] [place] Urea nitrogen [Mass/Vol] 34 mg/dL High 7-21 [facility] Comment on above: Order Comment: Speci men Type: BLOOD SPECIMENOrdering Facility: [facility] Address: [address] [place] [address] Performed By: #### 2 157-6, 59870-0, 93020-5 ####KO LABORATORYCLIA [id number] [place] [id number] [facility] ALLIED HEALTHon 07-11-2023 ALLIED HEALTH HNO ID: [id number] Author: DEJAN HERNANDEZ RT(R) Service: Nuclear Medicine [...] PATIENT PRESENTS WITH AN IMPLANTABLE OR ATTACHED ROLLING CHAIR PUSHER: No CREATININE: Creatinine Date Value Ref Range [...] documentation PROCEDURE TYPE: NM Stress: 13.89 mCi [id number] was administered IV for Rest Imaging at 09:05 by [facility]. 35.4 mCi [id number] was administered IV for Stress Imaging at 09:50 by [facility]. PATIENT DISCHARGED TO: Floor A Diagnostic radioactive procedure has taken place, with no further precautions necessary other than routine body substance precautions. More information regarding radiation safety can be found using this link: [email or web address] [email or web address]%20Nuclear%20 [email or web address] SIGNATURE: RT Kevin(R) PATIENT NAME: Sandra Schmitz DATE: July 11, 2023 TIME: 10:09 AM PAGER/CONTACT #: [facility] CASE MGT INIT Alicia 2023 CASE MGT INIT TOMASA HNO ID: [id number] Author: LUX AREVALO LISW Service: ? Author Type: High School Music Director Type: Care Mgt Initial Assessment Filed: 07/11/2023 [...] Current Advance Directive: Health Care Power of [employer] Grinder Current Living Arrangements and Support Lives with: [...] home, General wellness, Ambulate a little better [place] of Choice Explained: Are you interested in [...] 11, 2023 TIME: 11:24 AM CONTACT #: [phone] [facility] CBC W Auto Differential pane l (Bld)on 07-11-2023 Basophils (Bld) [#/Vol] 0.07 10*3/uL Normal <0.11 [facility] Comment on above: Order Comment: Speci men Type: BLOOD SPECIMENOrdering Facility: [facility] Address: [address] [place] [address] Performed By: #### 5 7021-8 ####KO LABORATORYCLIA [id number] [place] [address] [place] Basophils/100 WBC (Bld) 1.0 % Normal [facility] Comment on above: Order Comment: Speci men Type: BLOOD SPECIMENOrdering Facility: [facility] Address: [address] [place] [address] Performed By: #### 5 7021-8 ####KO LABORATORYCLIA [id number] [address] Differential cell count method Nom (Bld) Auto Normal [facility] Comment on above: Order Comment: Speci men Type: BLOOD SPECIMENOrdering Facility: [facility] Address: [address] [place] [address] Performed By: #### 5 7021-8 ####KO LABORATORYCLIA [id number] [place] [address] [place] Eosinophils (Bld) [#/Vol] 0.21 10*3/uL Normal <0.46 [facility] Comment on above: Order Comment: Speci men Type: BLOOD SPECIMENOrdering Facility: [facility] Address: [address] [place] [address] Performed By: #### 5 7021-8 ####KO LABORATORYCLIA [id number] [address] Eosinophils/100 WBC (Bld) 3.0 % Normal [facility] Comment on above: Order Comment: Speci men Type: BLOOD SPECIMENOrdering Facility: [facility] Address: [address] [place] [address] Performed By: #### 5 7021-8 ####KO LABORATORYCLIA [id number] [address] [place] Erythrocyte distribution width (RBC) [Ratio] 14.9 % Normal 11.5-15.0 [facility] Comment on above: Order Comment: Speci men Type: BLOOD SPECIMENOrdering Facility: [facility] Address: [address] [place] [address] Performed By: #### 5 7021-8 ####KO LABORATORYCLIA [id number] [address] [place] Hematocrit (Bld) [Volume fraction] 39.7 % Normal 36.0-46.0 [facility] Comment on above: Order Comment: Speci men Type: BLOOD SPECIMENOrdering Facility: [facility] Address: [address] [place] [address] Performed By: #### 5 7021-8 ####KO LABORATORYCLIA [id number] [address] [place] Hemoglobin (Bld) [Mass/Vol] 12.3 g/dL Normal 11.5-15.5 [facility] Comment on above: Order Comment: Speci men Type: BLOOD SPECIMENOrdering Facility: [facility] Address: [address] [place] [address] Performed By: #### 5 7021-8 ####KO LABORATORYCLIA [id number] [place] [address] [place] Immature granulocytes (Bld) [#/Vol] 0.03 10*3/uL Normal <0.10 [facility] Comment on above: Order Comment: Speci men Type: BLOOD SPECIMENOrdering Facility: [facility] Address: [address] [place] [address] Performed By: #### 5 7021-8 ####KO LABORATORYCLIA [id number] [address] [place] Immature granulocytes/100 WBC (Bld) 0.4 % Normal [facility] Comment on above: Order Comment: Speci men Type: BLOOD SPECIMENOrdering Facility: [facility] Address: [address] [place] [address] Performed By: #### 5 7021-8 ####KO LABORATORYCLIA [id number] [place] [address] Lymphocytes (Bld) [#/Vol] 2.77 10*3/uL Normal 1.00-4.00 [facility] Comment on above: Order Comment: Speci men Type: BLOOD SPECIMENOrdering Facility: [facility] Address: [address] [place] [address] Performed By: #### 5 7021-8 ####KO LABORATORYCLIA [id number] [address] Lymphocytes/100 WBC (Bld) 39.9 % Normal [facility] Comment on above: Order Comment: Speci men Type: BLOOD SPECIMENOrdering Facility: [facility] Address: [address] [place] [address] Performed By: #### 5 7021-8 ####KO LABORATORYCLIA [id number] [address] MCH (RBC) [Entitic mass] 28.2 pg Normal 26.0-34.0 [facility] Comment on above: Order Comment: Speci men Type: BLOOD SPECIMENOrdering Facility: [facility] Address: [address] [place] [address] Performed By: #### 5 7021-8 ####KO LABORATORYCLIA [id number] [address] STATES [facility] MCHC (RBC) [Mass/Vol] 31.0 g/dL Normal 30.5-36.[address] [facility] Comment on above: Order Comment: Speci men Type: BLOOD SPECIMENOrdering Facility: [facility] Address: [address] [place] [address] Performed By: #### 5 7021-8 ####KO LABORATORYCLIA [id number] [address] MCV (RBC) [Entitic vol] 91.1 fL Normal 80.0-100.0 [facility] Comment on above: Order Comment: Speci men Type: BLOOD SPECIMENOrdering Facility: [facility] Address: [address] [place] [address] Performed By: #### 5 7021-8 ####KO LABORATORYCLIA [id number] [place] [address] [place] Monocytes (Bld) [#/Vol] 0.60 10*3/uL Normal <0.87 [facility] Comment on above: Order Comment: Speci men Type: BLOOD SPECIMENOrdering Facility: [facility] Address: [address] [place] [address] Performed By: #### 5 7021-8 ####KO LABORATORYCLIA [id number] [place] [address] [place] Monocytes/100 WBC (Bld) 8.6 % Normal [facility] Comment on above: Order Comment: Speci men Type: BLOOD SPECIMENOrdering Facility: [facility] Address: [address] [place] [address] Performed By: #### 5 7021-8 ####KO LABORATORYCLIA [id number] [place] [address] [place] Neutrophils (Bld) [#/Vol] 3.26 10*3/uL Normal 1.45-7.50 [facility] Comment on above: Order Comment: Speci men Type: BLOOD SPECIMENOrdering Facility: [facility] Address: [address] [place] [address] Performed By: #### 5 7021-8 ####KO LABORATORYCLIA [id number] [place] [address] [place] Neutrophils/100 WBC (Bld) 47.1 % Normal [facility] Comment on above: Order Comment: Speci men Type: BLOOD SPECIMENOrdering Facility: [facility] Address: [address] [place] [address] Performed By: #### 5 7021-8 ####KO LABORATORYCLIA [id number] [place] [address] [place] Nucleated RBC (Bld) [#/Vol] 10*3/uL Normal <0.01 [facility] Comment on above: Order Comment: Speci men Type: BLOOD SPECIMENOrdering Facility: [facility] Address: [address] [place] [address] Performed By: #### 5 7021-8 ####KO LABORATORYCLIA [id number] [place] [address] [place] Nucleated RBC/100 WBC (Bld) [Ratio] 0.0 /100 WBC Normal [facility] Comment on above: Order Comment: Speci men Type: BLOOD SPECIMENOrdering Facility: [facility] Address: [address] [place] [address] Performed By: #### 5 7021-8 ####KO LABORATORYCLIA [id number] [place] [address] [place] Platelet mean volume (Bld) [Entitic vol] 10.2 fL Normal 9.0-12.7 [facility] Comment on above: Order Comment: Speci men Type: BLOOD SPECIMENOrdering Facility: [facility] Address: [address] [place] [address] Performed By: #### 5 7021-8 ####KO LABORATORYCLIA [id number] [place] [address] [place] Platelets (Bld) [#/Vol] 290 10*3/uL Normal 150-400 [facility] Comment on above: Order Comment: Speci men Type: BLOOD SPECIMENOrdering Facility: [facility] Address: [address] [place] [address] Performed By: #### 5 7021-8 ####KO LABORATORYCLIA [id number] [place] [address] [place] RBC (Bld) [#/Vol] 4.36 10*6/uL Normal 3.90-5.20 [facility] Comment on above: Order Comment: Speci men Type: BLOOD SPECIMENOrdering Facility: [facility] Address: [address] [place] [address] Performed By: #### 5 7021-8 ####KO LABORATORYCLIA [id number] [place] [address] [place] WBC (Bld) [#/Vol] 6.94 10*3/uL Normal 3.70-11.00 [facility] Comment on above: Order Comment: Speci men Type: BLOOD SPECIMENOrdering Facility: [facility] Address: [address] [place] [address] Performed By: #### 5 7021-8 ####MULBERRY LABORATORYCLIA [id number] [place] [address] [place] CK SerPl-cCncon 07-11-2023 CK [Catalytic activity/Vol] 49 U/L Normal 42-196 [facility] Comment on above: Order Comment: Speci men Type: BLOOD SPECIMENOrdering Facility: [facility] Address: [address] [place] [address] Performed By: #### 2 4362-6, 6, ####MULBERRY LABORATORYCLIA [id number] [place] [address] [place] Magnesium SerPl-mCncon 07-11 Magnesium [Mass/Vol] 2.0 mg/dL Normal 1.7-2.3 [facility] Comment on above: Order Comment: Speci men Type: BLOOD SPECIMENOrdering Facility: [facility] Address: [address] [place] [address] Performed By: #### 2 4362-6, 2156-10, ####MULBERRY LABORATORYCLIA [id number] [place] [address] [place] NM CARDIAC PERF STRESS/PHARM on 07-11-2023 NM CARDIAC PERF STRESS/PHARM * * *Final Report* * * DATE OF EXAM: Jul 11 2023 10:57AM SKIP 0006 - NM CARDIAC PERF STRESS/PHARM / PROCEDURE REASON: Chest pain/anginal equiv, intermediate CAD risk, not treadmill candidate * * * * Physician Interpretation * * * * Stress Cooler Servicer Report: [facility] Date of service: 07/11/2023 9:15:02 AM Supervising [...] administered radiotracer and doses below. [facility] Date of service: 07/11/2023 9:15:02 AM Ordering Physician: ÁLVARO LOBO. Requesting Physician: Indication: CP - ECG uniterpretable OR unable to exercise Interpreting physician: eDonte Penaloza MD Height: 161.29 cm BSA: 1.98 [...] * * Stress ECG Report: [facility] Date of service: 07/11/2023 9:15:02 AM Ordering physician: ÁLVARO LOBO compliance review specialist: Oumou Piña Migratory Game Bird Biologist: Valery Sung Interpreting physician: Álvaro Lobo MD [...] (more content not included)... Normal [facility] NURSING PROGon 07-11-2023 NURSING PROG HNO ID: [id number] Author: MISTY ASCENCIO, RN Service: Nursing Author Type: Registered Nurse Type: Nursing Progress Note Filed: 07/11/2023 14:37 Note Text: PATIENT EDUCATION HEART FAILURE PATIENT NAME: Sandra Schmitz PATIENT LOCATION: [place] [id number] SURVIVAL SKILLS: Low Sodium Diet Weight Monitoring [...] EF @ 29%. Follow Dr Oneill from [place]. Brief overview of CHF, s/s and management [...] Signed By: Misty Ascencio Normal [facility] Renal function 2000 panelon 07-11-2023 Albumin [Mass/Vol] 3.6 g/dL Low 3.9-4.9 [facility] Comment on above: Order Comment: Ernestinei men Type: BLOOD SPECIMENOrdering Facility: [facility] Address: [address] [place] [address] Performed By: #### 2 4362-6, 2156-10, ####MULBERRY LABORATORYCLIA [id number] [place] [id number] [place] Anion gap [Moles/Vol] 9 mmol/L Normal 9-[address] [facility] Comment on above: Order Comment: Speci men Type: BLOOD SPECIMENOrdering Facility: [facility] Address: [address] [place] [address] Performed By: #### 2 4362-6, 2156-10, ####MULBERRY LABORATORYCLIA [id number] [place] [id number] [place] Calcium [Mass/Vol] 9.2 mg/dL Normal 8.5-10.2 [facility] Comment on above: Order Comment: Speci men Type: BLOOD SPECIMENOrdering Facility: [facility] Address: [address] [place] [id number] Performed By: #### 2 4362-6, 2156-10, ####KO LABORATORYCLIA [id number] [place] [address] [place] Chloride [Moles/Vol] 103 mmol/L Normal 97-105 [facility] Comment on above: Order Comment: Speci men Type: BLOOD SPECIMENOrdering Facility: [facility] Address: [address] [place] [address] Performed By: #### 2 4362-6, 2156-10, ####KO LABORATORYCLIA [id number] [place] [id number] [place] CO2 [Moles/Vol] 29 mmol/L Normal 22-30 [facility] Comment on above: Order Comment: Speci men Type: BLOOD SPECIMENOrdering Facility: [facility] Address: [address] [place] [address] Performed By: #### 2 4362-6, 2156-10, ####MULBERRY LABORATORYCLIA [id number] [place] [address] [place] Creatinine [Mass/Vol] 0.90 mg/dL Normal 0.58-0.[address] [facility] Comment on above: Order Comment: Speci men Type: BLOOD SPECIMENOrdering Facility: [facility] Address: [address] [place] [address] Performed By: #### 2 4362-6, 2156-10, ####MULBERRY LABORATORYCLIA [id number] [address] [place] Creatinine and Glomerular filtration rate.predicted panel (S/P/Bld) 66 mL/min/1.73m??? Normal >=60 [facility] Comment on above: Order Comment: Speci men Type: BLOOD SPECIMENOrdering Facility: [facility] Address: [address] [place] [address] Result Comment: Aaron mated Glomerular Filtration Rate [...] By: #### 2 4362-6, 2156-10, ####KO LABORATORYCLIA [id number] [place] [address] [place] Glucose [Mass/Vol] 91 mg/dL Normal 74-99 [facility] Comment on above: Order Comment: Lenard [facility] Type: BLOOD SPECIMENOrdering Facility: [facility] Address: [address] [place] [address] Result Comment: The [place] Diabetes Association (ADA) provides guidance for cutoff [...] Standards of Medical Care in Diabetes 2016, [place] Diabetes Association. Diabetes Care. 2016.39(Suppl 1). Performed By: #### 2 4362-6, 2156-10, ####MULBERRY LABORATORYCLIA [id number] [place] [address] [place] Phosphate [Mass/Vol] 3.9 mg/dL Normal 2.7-4.8 [facility] Comment on above: Order Comment: Lenard jesus Type: BLOOD SPECIMENOrdering Facility: [facility] Address: [address] [place] [address] Performed By: #### 2 4362-6, 2156-10, ####MULBERRY LABORATORYCLIA [id number] [place] [address] [place] Potassium [Moles/Vol] 4.2 mmol/L Normal 3.7-5.[address] [facility] Comment on above: Order Comment: Speci men Type: BLOOD SPECIMENOrdering Facility: [facility] Address: [address] [place], [place] [address] Performed By: #### 2 4362-6, 2156-10, ####KO LABORATORYCLIA [id number] [place] [id number] [facility] Sodium [Moles/Vol] 141 mmol/L Normal 136-144 [facility] Comment on above: Order Comment: Speci men Type: BLOOD SPECIMENOrdering Facility: [facility] Address: [address] [place] [address] Performed By: #### 2 4362-6, 2156-10, ####KO LABORATORYCLIA [id number] [place] [id number] [place] Urea nitrogen [Mass/Vol] 29 mg/dL High 7-21 [facility] Comment on above: Order Comment: Speci men Type: BLOOD SPECIMENOrdering Facility: [facility] Address: [address] [place] [address] Performed By: #### 2 4362-6, 2156-10, ####KO LABORATORYCLIA [id number] [place] [id number] [facility] ALLIED HEALTHon 07-10-2023 ALLIED HEALTH HNO ID: [id number] Author: DANIELLE ESTRELLA RT(Marlee) Service: ? Author [...] PATIENT PRESENTS WITH AN IMPLANTABLE OR ATTACHED ROLLING CHAIR PUSHER: No RADIOLOGY DEPARTMENT: General X-ray: Exam(s) Completed: Chest X-Ray PERIPHERAL IV DATA: Not applicable SIGNED BY: RT Maciel(R) July 10, 2023 8:12 AM Normal [facility] CBC W Auto Differential pane l (Bld)on 07-10-2023 Basophils (Bld) [#/Vol] 0.11 10*3/uL High <0.11 [facility] Comment on above: Order Comment: Speci men Type: BLOOD SPECIMENOrdering Facility: [facility] Address: [address] [place] [address] Performed By: #### 5 7021-8 ####KO LABORATORYCLIA [id number] [place] [address] [place] Basophils/100 WBC (Bld) 1.3 % Normal [facility] Comment on above: Order Comment: Speci men Type: BLOOD SPECIMENOrdering Facility: [facility] Address: [address] [place] [address] Performed By: #### 5 7021-8 ####KO LABORATORYCLIA [id number] [place] [address] [place] Differential cell count method Nom (Bld) Auto Normal [facility] Comment on above: Order Comment: Speci men Type: BLOOD SPECIMENOrdering Facility: [facility] Address: [address] [place] [address] Performed By: #### 5 7021-8 ####KO LABORATORYCLIA [id number] [place] [address] [place] Eosinophils (Bld) [#/Vol] 0.26 10*3/uL Normal <0.46 [facility] Comment on above: Order Comment: Speci men Type: BLOOD SPECIMENOrdering Facility: [facility] Address: [address] [place] [address] Performed By: #### 5 7021-8 ####KO LABORATORYCLIA [id number] [place] [address] [place] Eosinophils/100 WBC (Bld) 3.0 % Normal [facility] Comment on above: Order Comment: Speci men Type: BLOOD SPECIMENOrdering Facility: [facility] Address: [address] [place] [address] Performed By: #### 5 7021-8 ####KO LABORATORYCLIA [id number] [place] [address] [place] Erythrocyte distribution width (RBC) [Ratio] 14.8 % Normal 11.5-15.0 [facility] Comment on above: Order Comment: Speci men Type: BLOOD SPECIMENOrdering Facility: [facility] Address: [address] [place] [address] Performed By: #### 5 7021-8 ####KO LABORATORYCLIA [id number] [place] [address] [place] Hematocrit (Bld) [Volume fraction] 42.8 % Normal 36.0-46.0 [facility] Comment on above: Order Comment: Speci men Type: BLOOD SPECIMENOrdering Facility: [facility] Address: [address] [place] [address] Performed By: #### 5 7021-8 ####KO LABORATORYCLIA [id number] [place] [address] [place] Hemoglobin (Bld) [Mass/Vol] 14.0 g/dL Normal 11.5-15.5 [facility] Comment on above: Order Comment: Speci men Type: BLOOD SPECIMENOrdering Facility: [facility] Address: [address] [place] [address] Performed By: #### 5 7021-8 ####KO LABORATORYCLIA [id number] [place] [address] [place] Immature granulocytes (Bld) [#/Vol] 0.05 10*3/uL Normal <0.10 [facility] Comment on above: Order Comment: Speci men Type: BLOOD SPECIMENOrdering Facility: [facility] Address: [address] [place] [address] Performed By: #### 5 7021-8 ####KO LABORATORYCLIA [id number] [place] [address] [place] Immature granulocytes/100 WBC (Bld) 0.6 % Normal [facility] Comment on above: Order Comment: Speci men Type: BLOOD SPECIMENOrdering Facility: [facility] Address: [address] [place] [address] Performed By: #### 5 7021-8 ####KO LABORATORYCLIA [id number] [address] Lymphocytes (Bld) [#/Vol] 3.08 10*3/uL Normal 1.00-4.00 [facility] Comment on above: Order Comment: Speci men Type: BLOOD SPECIMENOrdering Facility: [facility] Address: [address] [place] [address] Performed By: #### 5 7021-8 ####KO LABORATORYCLIA [id number] [address] Lymphocytes/100 WBC (Bld) 35.7 % Normal [facility] Comment on above: Order Comment: Speci men Type: BLOOD SPECIMENOrdering Facility: [facility] Address: [address] [place] [address] Performed By: #### 5 7021-8 ####KO LABORATORYCLIA [id number] [address] MCH (RBC) [Entitic mass] 29.9 pg Normal 26.0-34.0 [facility] Comment on above: Order Comment: Speci men Type: BLOOD SPECIMENOrdering Facility: [facility] Address: [address] [place] [address] Performed By: #### 5 7021-8 ####KO LABORATORYCLIA [id number] [address] MCHC (RBC) [Mass/Vol] 32.7 g/dL Normal 30.5-36.[address] [facility] Comment on above: Order Comment: Speci men Type: BLOOD SPECIMENOrdering Facility: [facility] Address: [address] [place] [address] Performed By: #### 5 7021-8 ####KO LABORATORYCLIA [id number] [address] MCV (RBC) [Entitic vol] 91.5 fL Normal 80.0-100.0 [facility] Comment on above: Order Comment: Speci men Type: BLOOD SPECIMENOrdering Facility: [facility] Address: [address] [place] [address] Performed By: #### 5 7021-8 ####KO LABORATORYCLIA [id number] [place] [address] [place] Monocytes (Bld) [#/Vol] 0.68 10*3/uL Normal <0.87 [facility] Comment on above: Order Comment: Speci men Type: BLOOD SPECIMENOrdering Facility: [facility] Address: [address] [place] [address] Performed By: #### 5 7021-8 ####KO LABORATORYCLIA [id number] [place] [address] [place] Monocytes/100 WBC (Bld) 7.9 % Normal [facility] Comment on above: Order Comment: Speci men Type: BLOOD SPECIMENOrdering Facility: [facility] Address: [address] [place] [address] Performed By: #### 5 7021-8 ####KO LABORATORYCLIA [id number] [place] [address] [place] Neutrophils (Bld) [#/Vol] 4.45 10*3/uL Normal 1.45-7.50 [facility] Comment on above: Order Comment: Speci men Type: BLOOD SPECIMENOrdering Facility: [facility] Address: [address] [place] [address] Performed By: #### 5 7021-8 ####KO LABORATORYCLIA [id number] [place] [address] [place] Neutrophils/100 WBC (Bld) 51.5 % Normal [facility] Comment on above: Order Comment: Speci men Type: BLOOD SPECIMENOrdering Facility: [facility] Address: [address] [place] [address] Performed By: #### 5 7021-8 ####KO LABORATORYCLIA [id number] [place] [address] [place] Nucleated RBC (Bld) [#/Vol] 10*3/uL Normal <0.01 [facility] Comment on above: Order Comment: Speci men Type: BLOOD SPECIMENOrdering Facility: [facility] Address: [address] [place] [address] Performed By: #### 5 7021-8 ####KO LABORATORYCLIA [id number] [place] [address] [place] Nucleated RBC/100 WBC (Bld) [Ratio] 0.0 /100 WBC Normal [facility] Comment on above: Order Comment: Speci men Type: BLOOD SPECIMENOrdering Facility: [facility] Address: [address] [place] [address] Performed By: #### 5 7021-8 ####KO LABORATORYCLIA [id number] [place] [address] [place] Platelet mean volume (Bld) [Entitic vol] 10.0 fL Normal 9.0-12.7 [facility] Comment on above: Order Comment: Speci men Type: BLOOD SPECIMENOrdering Facility: [facility] Address: [address] [place] [address] Performed By: #### 5 7021-8 ####KO LABORATORYCLIA [id number] [place] [address] [place] Platelets (Bld) [#/Vol] 313 10*3/uL Normal 150-400 [facility] Comment on above: Order Comment: Speci men Type: BLOOD SPECIMENOrdering Facility: [facility] Address: [address] [place] [address] Performed By: #### 5 7021-8 ####KO LABORATORYCLIA [id number] [place] [address] [place] RBC (Bld) [#/Vol] 4.68 10*6/uL Normal 3.90-5.20 [facility] Comment on above: Order Comment: Speci men Type: BLOOD SPECIMENOrdering Facility: [facility] Address: [address] [place] [address] Performed By: #### 5 7021-8 ####KO LABORATORYCLIA [id number] [place] [address] [place] WBC (Bld) [#/Vol] 8.63 10*3/uL Normal 3.70-11.00 [facility] Comment on above: Order Comment: Speci men Type: BLOOD SPECIMENOrdering Facility: [facility] Address: [address] [place] [address] Performed By: #### 5 7021-8 ####MULBERRY LABORATORYCLIA [id number] [address] [place] CK TOTAL AND CK-MBon 024 CK [Catalytic activity/Vol] 57 U/L Normal 42-196 [facility] Comment on above: Order Comment: Speci men Type: BLOOD SPECIMENOrdering Facility: [facility] Address: [address] [place] [address] Performed By: #### 3 084-1, 2777-1, [id number], , CKCKMB ####MULBERRY LABORATORYCLIA [id number] [address] CK.MB [Mass/Vol] 2.3 ng/mL Normal <4.4 [facility] Comment on above: Order Comment: Speci men Type: BLOOD SPECIMENOrdering Facility: [facility] Address: [address] [place] [address] Performed By: #### 3 084-1, 2777-1, [id number], , CKCKMB ####MULBERRY LABORATORYCLIA [id number] [address] CK.MB [Ratio] Normal [facility] Comment on above: Order Comment: Speci men Type: BLOOD SPECIMENOrdering Facility: [facility] Address: [address] [place] [address] Result Comment: CK M B % not reported with CK <100 U/L. Performed By: #### 3 084-1, 2777-1, [id number], , CKCKMB ####MULBERRY LABORATORYCLIA [id number] [address] [place] CONSULTon 07-10-2023 CONSULT HNO ID: [id number] Author: ÁLVARO LOBO MD Service: Cardiovascular Medicine Author Type: Physician Type: Consults Filed: 07/10/2023 15:09 Note Text: Heart and Vascular [facility] Lizy Eduardo Department of Cardiovascular Medicine SECTION OF [facility] CARDIOLOG[facility] Consultation Note Name: Sandra Schmitz : 1945 [...] grade I DD, trace MR, TR, mild PA, asc Ao 3.6c m, atrial septal aneurysm Cardiac cath 10/2021: mod LAD, D1 prox 40%, mild RCA disease dominant, EF 35%. She was seen by EP on 06/12/23 and was planned for [employer]. She follows with Dr. Oneill, last seen in clinic on 06/04/23. PAST MEDICAL HISTORY Diagnosis Date Acute acalculous cholecystitis 05/30/2020 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 09/22/2020 Acute on chronic systolic CHF (congestive heart failure) ([facility]) 05/03/2020 Aspiration pneumonia (HCC) 05/30/2020 Chest [...] (more content not included)... Normal [facility] Comprehensive metabolic 2000 panelon 07-10-2023 Albumin [Mass/Vol] 4.2 g/dL Normal 3.9-4.9 [facility] Comment on above: Order Comment: Lenard jesus Type: BLOOD SPECIMENOrdering Facility: [facility] Address: [address] [place] [address] Performed By: #### 3 3762-6, 13523-9, [id number] ####KO LABORATORYCLIA [id number] [address] [place] [facility] ALP [Catalytic activity/Vol] 61 U/L Normal 34-123 [facility] Comment on above: Order Comment: Lenard jesus Type: BLOOD SPECIMENOrdering Facility: [facility] Address: [address] [place] [address] Performed By: #### 3 3762-6, 09396-7, [id number] ####KO LABORATORYCLIA [id number] [address] [place] [facility] ALT [Catalytic activity/Vol] 12 U/L Normal 7-38 [facility] Comment on above: Order Comment: Lenard jesus Type: BLOOD SPECIMENOrdering Facility: [facility] Address: [address] [place] [address] Performed By: #### 3 3762-6, 16603-8, [id number] ####KO LABORATORYCLIA [id number] [place] [address] [place] [facility] Anion gap [Moles/Vol] 9 mmol/L Normal 9-[address] [facility] Comment on above: Order Comment: Speci men Type: BLOOD SPECIMENOrdering Facility: [facility] Address: [address] [place] [address] Performed By: #### 3 3762-6, 19891-8, [id number] ####KO LABORATORYCLIA [id number] [place] [address] [place] AST [Catalytic activity/Vol] 17 U/L Normal 13-35 [facility] Comment on above: Order Comment: Speci men Type: BLOOD SPECIMENOrdering Facility: [facility] Address: [address] [place] [address] Performed By: #### 3 3762-6, 99956-0, [id number] ####KO LABORATORYCLIA [id number] [place] [address] [place] Bilirubin [Mass/Vol] 0.3 mg/dL Normal 0.2-1.3 [facility] Comment on above: Order Comment: Speci men Type: BLOOD SPECIMENOrdering Facility: [facility] Address: [address] [place] [address] Performed By: #### 3 3762-6, 60677-6, [id number] ####KO LABORATORYCLIA [id number] [address] [place] Calcium [Mass/Vol] 9.9 mg/dL Normal 8.5-10.2 [facility] Comment on above: Order Comment: Speci men Type: BLOOD SPECIMENOrdering Facility: [facility] Address: [address] [place] [address] Performed By: #### 3 3762-6, 69113-6, [id number] ####KO LABORATORYCLIA [id number] [place] [address] [place] Chloride [Moles/Vol] 104 mmol/L Normal 97-105 [facility] Comment on above: Order Comment: Speci men Type: BLOOD SPECIMENOrdering Facility: [facility] Address: [address] [place] [address] Performed By: #### 3 3762-6, 29773-2, [id number] ####KO LABORATORYCLIA [id number] [place] [address] [place] [address] [facility] CO2 [Moles/Vol] 28 mmol/L Normal 22-30 [facility] Comment on above: Order Comment: Lenard jesus Type: BLOOD SPECIMENOrdering Facility: [facility] Address: [address] [place] [address] Performed By: #### 3 3762-6, 31154-2, [id number] ####KO LABORATORYCLIA [id number] [place] [address] [place] Creatinine [Mass/Vol] 0.89 mg/dL Normal 0.58-0.[address] [facility] Comment on above: Order Comment: Speci men Type: BLOOD SPECIMENOrdering Facility: [facility] Address: [address] [place] [address] Performed By: #### 3 3762-6, 13980-8, [id number] ####KO LABORATORYCLIA [id number] [address] Creatinine and Glomerular filtration rate.predicted panel (S/P/Bld) 67 mL/min/1.73m??? Normal >=60 [facility] Comment on above: Order Comment: Lenard jesus Type: BLOOD SPECIMENOrdering Facility: [facility] Address: [address] [place] [address] Result Comment: Aaron mated Glomerular Filtration Rate [...] actual GFR. Performed By: #### 3 3762-6, 19850-5, [id number] ####KO LABORATORYCLIA [id number] [address] [place] Glucose [Mass/Vol] 105 mg/dL High 74-99 [facility] Comment on above: Order Comment: Speci men Type: BLOOD SPECIMENOrdering Facility: [facility] Address: [address] [place] [address] Result Comment: The [place] Diabetes Association (ADA) provides guidance for cutoff [...] Standards of Medical Care in Diabetes 2016, [place] Diabetes Association. Diabetes Care. 2016.39(Suppl 1). Performed By: #### 3 3762-6, 71128-9, [id number] ####KO LABORATORYCLIA [id number] [place] [address] [place] Potassium [Moles/Vol] 4.3 mmol/L Normal 3.7-5.[address] [facility] Comment on above: Order Comment: Lenard jesus Type: BLOOD SPECIMENOrdering Facility: [facility] Address: [address] [place] [address] Performed By: #### 3 3762-6, 81825-0, [id number] ####KO LABORATORYCLIA [id number] [place] [address] [place] Protein [Mass/Vol] 7.5 g/dL Normal 6.3-8.0 [facility] Comment on above: Order Comment: Lenard jesus Type: BLOOD SPECIMENOrdering Facility: [facility] Address: [address] [place] [address] Performed By: #### 3 3762-6, 26191-0, [id number] ####KO LABORATORYCLIA [id number] [place] [address] [place] Sodium [Moles/Vol] 141 mmol/L Normal 136-144 [facility] Comment on above: Order Comment: Lenard jesus Type: BLOOD SPECIMENOrdering Facility: [facility] Address: [address] [place] [address] Performed By: #### 3 3762-6, 89211-0, [id number] ####KO LABORATORYCLIA [id number] [place] [address] [facility] Urea nitrogen [Mass/Vol] 33 mg/dL High 7-21 [facility] Comment on above: Order Comment: Speci men Type: BLOOD SPECIMENOrdering Facility: [facility] Address: [address] [place] [id number] Performed By: #### 3 3762-6, 84427-0, [id number] ####MULBERRY LABORATORYCLIA [id number] [place] [id number] [facility] ED NOTEon 07-10-2023 ED NOTE HNO ID: [id number] Author: OLIVERIO RITTER, CARO Service: Nursing Author Type: Registered Nurse Type: ED Notes Filed: 07/10/2023 13:06 Note Text: Report called to 4S RN at this time. [facility] ED NOTE HNO ID: [id number] Author: OLIVERIO RITTER RN Service: Nursing Author Type: Registered Nurse Type: ED Notes Filed: 07/10/2023 12:50 Note Text: Dr. Sams rounding on patient at bedside at this time. [facility] ED NOTE HNO ID: [id number] Author: OLIVERIO RITTER RN Service: Nursing Author Type: Registered Nurse Type: ED Notes Filed: 07/10/2023 12:13 Note Text: Room air ambulatory pulse oximetry obtained at 92-93%. Patient returned to bed. Patient tolerated fairly. She does endorse that she has unsteadiness and dizziness when ambulating. SPO2 90% on RA when returned to bed. Discussed with Dr. Medina at this time. [facility] ED NOTE HNO ID: [id number] Author: BENTLEY PATTON RN Service: ? Author Type: Registered Nurse Type: ED Notes Filed: 07/10/2023 07:50 Note Text: Pt spo2 noted to be 89-90% on room air. Placed on O2, 2lpm via NC. Dr. Medina aware. [facility] ED NOTE HNO ID: [id number] Author: MARY LOU LIGHT, CARO Service: ? Author Type: Registered Nurse Type: ED Notes Filed: 07/10/2023 07:17 Note Text: Chest pressure woke her up out of sleep at approx 0430 C/O chest pressure 6/10 [facility] ED PROV NOTEon 07-10-2023 ED PROV NOTE HNO ID: [id number] Author: JIM MEDINA MD Service: ? Author [...] (more content not included)... Normal [facility] EKGon 07-10-2023 Electrocardiogram Ventricular Rate : 7 2 BPM Atrial Rate : 72 BPM P-R Interval : 134 ms QRS Duration : 172 ms Q-T Interval : 424 ms QTC Calculation(Bazett) : 464 ms Calculated P Quartzsite : 39 degrees Calculated R Quartzsite : -10 degrees Calculated T Quartzsite : 153 degrees NORMAL SINUS RHYTHM LEFT BUNDLE BRANCH BLOCK ABNORMAL ECG 716 Confirmed by MD MEDINA MICHAEL ([id number]), tape editor Alyssa Russell ([id number]) on 07/10/2023 3:39:44 PM NAME : SANDRA SCHMITZ PID : [id number] : 1945 Gender : Female Race : ORD : Procedure Date : Jul 10 2023 07:12:14 Edit Date : Jul 10 2023 15:39:46 Diagnosis: NORMAL SINUS RHYTHM LEFT BUNDLE BRANCH BLOCK ABNORMAL ECG 716 Confirmed by MD MEDINA MICHAEL ([id number]), tape editor Alyssa Russell ([id number]) on 07/10/2023 3:39:44 PM Test Reason : Location : 1 : ER ED Overread By : MD MEDINA MICHAEL Edited By : Alyssa Russell Referred By : , Acquired by : Terrie AMADOR [facility] HIGH SENSITIVITY TROPONIN T (INITIAL)on 07-10-2023 Troponin T.cardiac High sensitivity method [Mass/Vol] 25 ng/L High <12 [facility] Comment on above: Order Comment: Speci men Type: BLOOD SPECIMENOrdering Facility: [facility] Address: [address] [place] [address] Result Comment: When assessing risk for acute [...] day MACE. Performed By: #### 3 3762-6, 83257-6, [id number] ####KO LABORATORYCLIA [id number] [place] [address] [place] HIGH SENSITIVITY TROPONIN T (SECOND)on 07-10-2023 Troponin T.cardiac High sensitivity method [Mass/Vol] 25 ng/L High <12 [facility] Comment on above: Order Comment: Lenard jesus Type: BLOOD SPECIMENOrdering Facility: [facility] Address: [address] [place] [address] Result Comment: When assessing risk for acute [...] 30 day MACE. Performed By: #### L [id number] ####KO LABORATORYCLIA [id number] [place] [address] [place] HIGH SENSITIVITY TROPONIN T (THIRD) 3 HRS AFTER INITIALon 07-10-2023 Troponin T.cardiac High sensitivity method [Mass/Vol] 24 ng/L High <12 [facility] Comment on above: Order Comment: Lenard jesus Type: BLOOD SPECIMENOrdering Facility: [facility] Address: [address] [place] [address] Result Comment: When assessing risk for acute [...] MACE. Performed By: #### 3 084-1, 2777-1, [id number], 25756-6, CKCKMB ####KO LABORATORYCLIA [id number] [place] [address] [place] HISTORY PHYSICALon HISTORY PHYSICAL HNO ID: [id number] Author: REMINGTON CAI MD Service: Hospital Medicine Author Type: Physician Type: H&P Filed: 07/10/2023 13:52 Note Text: DEPARTMENT OF HOSPITAL MEDICINE HISTORY AND PHYSICAL EXAM SERVICE DATE: 07/10/2023 SERVICE TIME: 1:49 PM Hospital Medicine/Primary Attending: Remington Cai MD NIGHT AND WEEKEND COVERAGE: MULBERRY COVERAGE: Nights: [phone], please page [facility] Night coverage pager [phone]. Admission date: 07/10/2023 MEDICAL DECISION MAKING Reason for Admission: Chest pain Reviewed notes: Interpreted labs: Interpreted imaging indpendently: Interpreted EKG independently: See EKG interpretation below. ASSESSMENT/PLAN Chest h-ksy-npssicjqsucg with elevated left hemidiaphragm and bibasilar atelectasis [...] fibrillation. She has seen Dr. Greenfield the rehab rn. She is to be scheduled for pacer [...] (more content not included)... Normal [facility] Magnesium [Mass/Vol] 2.0 mg/dL Normal 1.7-2.3 [facility] Comment on above: Order Comment: [facility]pen[facility] Type: BLOOD SPECIMENOrdering Facility: [facility] Address: [address] [place] [address] Performed By: #### 3 084-1, 2777-1, [id number], 49320-6, CKCKMB ####MULBERRY LABORATORYCLIA [id number] [place] [address] [place] NT-proBNP [facility] Natriuretic peptide.B prohormone N-Terminal [Mass/Vol] 3171 pg/mL High <450 [facility] Comment on above: Order Comment: [facility] Type: BLOOD SPECIMENOrdering Facility: [facility] Address: [address] [place] [address] Performed By: #### 3 3762-6, 54225-6, [id number] ####MULBERRY LABORATORYCLIA [id number] [place] [id number] [place] [facility]ate [facility] Phosphate [Mass/Vol] 3.6 mg/dL Normal 2.7-4.8 [facility] Comment on above: Order Comment: Speci men Type: BLOOD SPECIMENOrdering Facility: [facility] Address: [address] [place] [address] Performed By: #### 3 084-1, 2777-1, [id number], 30798-3, CKCKMB ####MULBERRY LABORATORYCLIA [id number] [address] Urate SerPl-mCncon Urate [Mass/Vol] 9.1 mg/dL High 2.5-6.6 [facility] Comment on above: Order Comment: Speci men Type: BLOOD SPECIMENOrdering Facility: [facility] Address: [address] [place] [address] Performed By: #### 3 084-1, 2777-1, [id number], 92167-6, CKCKMB ####MULBERRY LABORATORYCLIA [id number] [address] Urinalysis complete panel (U )on 07-10-2023 Bacteria LM.HPF (Urine sed) [#/Area] Few Abnormal None Seen [facility] Comment on above: Order Comment: Speci men Type: URINE SPECIMENOrdering Facility: [facility] Address: [address] [place] [address] Performed By: #### 2 4356-8 ####MULBERRY LABORATORYCLIA [id number] [address] Bilirubin Ql (U) Negative Normal Negative [facility] Comment on above: Order Comment: Speci men Type: URINE SPECIMENOrdering Facility: [facility] Address: [address] [place] [address] Performed By: #### 2 4356-8 ####MULBERRY LABORATORYCLIA [id number] [address] Clarity (Unsp spec) Clear Normal Clear [facility] Comment on above: Order Comment: Speci men Type: URINE SPECIMENOrdering Facility: [facility] Address: [address] [place] [address] Performed By: #### 2 4356-8 ####KO LABORATORYCLIA [id number] [place] [address] [place] Color (U) Yellow Normal Yellow [facility] Comment on above: Order Comment: Speci men Type: URINE SPECIMENOrdering Facility: [facility] Address: [address] [place] [address] Performed By: #### 2 4356-8 ####KO LABORATORYCLIA [id number] [place] [address] [place] Epithelial cells LM.HPF (Urine sed) [#/Area] Few Normal [facility] Comment on above: Order Comment: Speci men Type: URINE SPECIMENOrdering Facility: [facility] Address: [address] [place] [address] Performed By: #### 2 4356-8 ####KO LABORATORYCLIA [id number] [address] [place] Glucose Test strip (U) [Mass/Vol] Negative Normal Negative [facility] Comment on above: Order Comment: Speci men Type: URINE SPECIMENOrdering Facility: [facility] Address: [address] [place] [address] Performed By: #### 2 4356-8 ####KO LABORATORYCLIA [id number] [address] [place] Hemoglobin Ql (U) Negative Normal Negative [facility] Comment on above: Order Comment: Speci men Type: URINE SPECIMENOrdering Facility: [facility] Address: [address] [place] [address] Performed By: #### 2 4356-8 ####KO LABORATORYCLIA [id number] [place] [address] [place] Ketones Ql (U) Negative Normal Negative [facility] Comment on above: Order Comment: Speci men Type: URINE SPECIMENOrdering Facility: [facility] Address: [facility] [place] [address] Performed By: #### 2 4356-8 ####KO LABORATORYCLIA [id number] [address] [place] Leukocyte esterase Test strip Ql (U) Negative Normal Negative [facility] Comment on above: Order Comment: Speci men Type: URINE SPECIMENOrdering Facility: [facility] Address: [address] [place] [address] Performed By: #### 2 4356-8 ####KO LABORATORYCLIA [id number] [place] [address] [place] Nitrite Ql (U) Negative Normal Negative [facility] Comment on above: Order Comment: Speci men Type: URINE SPECIMENOrdering Facility: [facility] Address: [address] [place] [address] Performed By: #### 2 4356-8 ####KO LABORATORYCLIA [id number] [place] [address] [place] pH (U) 6.5 [pH] Normal 5.0-8.0 [facility] Comment on above: Order Comment: Speci men Type: URINE SPECIMENOrdering Facility: [facility] Address: [address] [place] [address] Performed By: #### 2 4356-8 ####KO LABORATORYCLIA [id number] [place] [address] [place] Protein (U) [Mass/Vol] Negative Normal Negative [facility] Comment on above: Order Comment: Speci men Type: URINE SPECIMENOrdering Facility: [facility] Address: [address] [place] [address] Performed By: #### 2 4356-8 ####KO LABORATORYCLIA [id number] [place] [address] [place] RBC LM.HPF (Urine sed) [#/Area] 0-3 /HPF Normal 0-3 /HPF [facility] Comment on above: Order Comment: Speci men Type: URINE SPECIMENOrdering Facility: [facility] Address: [address] [place] [address] Performed By: #### 2 4356-8 ####KO LABORATORYCLIA [id number] [place] [address] [place] Specific gravity (U) [Rel density] <=1.005 Low 1.005-1.030 [facility] Comment on above: Order Comment: Speci men Type: URINE SPECIMENOrdering Facility: [facility] Address: [address] [place] [address] Performed By: #### 2 4356-8 ####KO LABORATORYCLIA [id number] [address] Urobilinogen Ql (U) 0.2 EU/dL Normal 0.2-1.0 EU/dL [facility] Comment on above: Order Comment: Speci men Type: URINE SPECIMENOrdering Facility: [facility] Address: [address] [place] [address] Performed By: #### 2 4356-8 ####MULBERRY LABORATORYCLIA [id number] [address] [place] WBC LM.HPF (Urine sed) [#/Area] 0-5 /HPF Normal 0-5 /HPF [facility] Comment on above: Order Comment: Speci men Type: URINE SPECIMENOrdering Facility: [facility] Address: [address] [place] [address] Performed By: #### 2 4356-8 ####MULBERRY LABORATORYCLIA [id number] [address] [facility] XR CHEST 2V FRONTAL/LATon XR CHEST [...] tissues: Unremarkable. IMPRESSION: No acute radiographic abnormality. Cartographic Aide: KEYANA Transcribe Date/Time: Jul 10 2023 8:19A Dictated by : YESENIA GUZMAN MD This examination was interpreted and the report reviewed and electronically signed by: YESENIA GUZMAN MD on Jul 10 2023 8:20AM EST [id number] [facility] 06-12-2023 [facility] Office Visit (AGCARD POB) ----- SANDRA SCHMITZ ([id number]) 1945 [address] [employer] [employer]* Date Time Provider Department 06/12/23 3:20 PM [facility] During your visit today, we recorded the following information about you: Pulse Blood pressure Weight Height 68/minute 115/74 86.2 kg 1.6 m Randa Smith MA 06/12/2023 4:02 PM Signed No cardiac complaints today. FELIPE Rios Sergey Aleksandrovich, MD 06/12/2023 4:02 PM Signed [facility] SECTION OF CARDIAC PACING and ELECTROPHYSIOLOGY OUTPATIENT VISIT DATE June 12, 2023 OUTPATIENT VISIT TYPE NEW PRIMARY CARE PHYSICIAN: Mandeep Houser [phone] [phone] REFERRING PHYSICIAN: Santo Oneill MD. HISTORY OF PRESENT ILLNESS: 77-year-old female with history of nonischemic cardiomyopathy, severe LV systolic function, LVEF of 30% despite GDMT, LBBB with QRS of 170 ms, was referred for consideration of [employer]-D system implantation for prevention of sudden cardiac [...] on chronic systolic CHF (congestive heart failure) ([facility]) 05/03/2020 Aspiration pneumonia ([facility]) 05/30/2020 Chest pain 05/03/2020 Chest pressure 01/23/2013 Chronic diastolic congestive heart failure ([facility]) 02/14/2021 Clostridium difficile diarrhea 09/28/2020 Complete uterovaginal prolapse Cystocele, midline Essential hypertension 06/14/2020 Homozygous Factor V Leiden mutation ([facility]) 05/03/2020 Hypothyroidism IBS (irritable bowel syndrome) [...] syncope. Psychiatric/Behavior (more content not included)... Normal [facility] XR Chest PA and Lateralon IMPRESSION: Stable exam with mild cardiomegaly and nonspecific parenchymal changes in left lung base. Cartographic Aide: KEYANA Transcribe Date/Time: May 20 2023 10:19A Dictated by : KRISHAN CRUZ MD This examination was interpreted and the report reviewed and electronically signed by: KRISHNA CRUZ MD on May 20 2023 10:20AM [facility] DIVISION OF RADIOLOGY * * *Final [...] soft tissues: Unremarkable. DIVISION OF RADIOLOGY Provider, [facility] - 05/20/2023 * * *Final [...] nonspecific parenchymal changes in left lung base. Cartographic Aide: PSCB Transcribe Date/Time: May 20 2023 10:19A Dictated by : KRISHNA CRUZ MD This examination was interpreted and the report reviewed and electronically signed by: KRISHNA CRUZ MD on May 20 2023 10:20AM EST [facility] XR Chest PA and LateralOrder ed By: Cc Provider on 05-20-2023 [facility] XR Chest PA and Lateralon Radiology Study observation (narrative) [facility] XR CHEST 2V FRONTAL/LATon [facility] STREP A MOLECULAR (POC)on Procedural Control Valid [facility] Strep A (POCT) Negative Negative [facility] CT ABD/PEL W IVCONon 023 [facility] DXA-AXIAL SKELETONon 023 [facility] VITAMIN D 25 HYDROXYon 07-22 25-hydroxyvitamin D3 [Mass/Vol] 45.2 ng/mL 31.0 - 80.0 ng/mL [facility] CBC panel Auto (Bld)on 07-21 Erythrocyte distribution width (RBC) [Ratio] 14.2 % 11.5 - 15.0 % [facility] Hematocrit (Bld) [Volume fraction] 41.8 % 36.0 - 46.0 % [facility] Hemoglobin (Bld) [Mass/Vol] 13.1 g/dL 11.5 - 15.5 g/dL [facility] MCH (RBC) [Entitic mass] 29.3 pg 26.0 - 34.0 pg [facility] MCHC (RBC) [Mass/Vol] 31.3 g/dL 30.5 - 36.0 g/dL [facility] MCV (RBC) [Entitic vol] 93.5 fL 80.0 - 100.0 fL [facility] Nucleated RBC (Bld) [#/Vol] <0.01 k/uL [facility] Platelet mean volume (Bld) [Entitic vol] 10.6 fL 9.0 - 12.7 fL [facility] Platelets (Bld) [#/Vol] 346 10*3/uL 150 - 400 k/uL [facility] RBC (Bld) [#/Vol] 4.47 10*6/uL 3.90 - 5.2 0 m/uL [facility] WBC (Bld) [#/Vol] 9.77 10*3/uL 3.70 - 11.00 k/uL [facility] Comprehensive metabolic 2000 panelon 07-21-2022 Albumin [Mass/Vol] 4.2 g/dL 3.9 - 4.9 g/dL [facility] ALP [Catalytic activity/Vol] 61 U/L 34 - 123 U/L [facility] ALT [Catalytic activity/Vol] 12 U/L 7 - 38 U/L [facility] Anion gap [Moles/Vol] 8 mmol/L Low 9 - 18 mmol/L [facility] AST [Catalytic activity/Vol] 15 U/L 13 - 35 U/L [facility] Bilirubin [Mass/Vol] 0.6 mg/dL 0.2 - 1 .3 mg/dL [facility] Calcium [Mass/Vol] 9.6 mg/dL 8.5 - 10. 2 mg/dL [facility] Chloride [Moles/Vol] 106 mmol/L High 97 - 10 5 mmol/L [facility] CO2 [Moles/Vol] 28 mmol/L 22 - 30 mmol/L [facility] Creatinine [Mass/Vol] 0.75 mg/dL 0.58 - 0.96 mg/dL [facility] Estimated Glomerular Filtration Rate 83 mL/min/1.73m >=60 mL/min/1.73 m [facility] Glucose [Mass/Vol] 68 mg/dL Low 74 - 99 mg/dL [facility] Potassium [Moles/Vol] 4.3 mmol/L 3.7 - 5.1 mmol/L [facility] Protein [Mass/Vol] 7.0 g/dL 6.3 - 8.0 g/dL [facility] Sodium [Moles/Vol] 142 mmol/L 136 - 144 mmol/L [facility] Urea nitrogen [Mass/Vol] 20 mg/dL 7 - 21 mg/dL [facility] HbA1c (Bld)on 07-21-2022 Average glucose Estimated from glycated hemoglobin (Bld) [Mass/Vol] 117 mg/dL [facility] HbA1c (Bld) [Mass fraction] 5.7 % High 4.3 - 5.6 % [facility] Lipid 1996 panelon Cholesterol [Mass/Vol] 220 mg/dL High <200 mg/dL [facility] Cholesterol in HDL [Mass/Vol] 46 mg/dL >39 mg/dL [facility] Cholesterol in LDL [Mass/Vol] 137 mg/dL High <100 mg/dL [facility] Cholesterol in LDL/Cholesterol in HDL [Mass ratio] 2.98 {ratio} High <2.54 [facility] Cholesterol in VLDL [Mass/Vol] 37 mg/dL High <30 mg/dL [facility] Cholesterol non HDL [Mass/Vol] 174 mg/dL High <130 mg/dL [facility] Cholesterol.total/Chol esterol in HDL [Mass ratio] 4.78 {ratio} <5.10 [facility] Fasting Time 4 hrs [facility] Triglyceride [Mass/Vol] 184 mg/dL High <150 mg/dL [facility] T3 [facility] 07-21-2022 T3 [Mass/Vol] 75 ng/dL Low 79 - 165 ng/dL [facility] T4 FREE/FREE THYROXon 2022 Free T4 [Mass/Vol] 1.6 ng/dL 0.9 - 1.7 ng/dL [facility] TSH [facility] 07-21-2022 TSH Qn 1.880 m[IU]/L 0.270 - 4.200 mIU/L [facility] VITAMIN B12 BLOODon 07-22-19 Cobalamin (Vitamin B12) [Mass/Vol] 246 pg/mL 232 - 1,245 pg/mL [facility] ALGN ALMOND IGEon 05-23-2022 Francis IgE Qn (S) <0.35 KU/L [facility] ALGN CASHEW NUT IGEon 2022 Cashew nut IgE Qn (S) <0.35 KU/L [facility] ALGN GLUTEN IGEon 05-23-2022 Gluten IgE Qn (S) <0.35 kU/l [facility] ALGN PEANUT IGEon 05-23-2022 Peanut IgE Qn (S) <0.35 kU/l [facility] ALGN PECAN NUT IGEon 023 [place]ec[place] or [place] Nut IgE Qn (S) <0.35 kU/l [facility] ALGN WHEAT IGEon 05-23-2022 Wheat IgE Qn (S) <0.35 kU/l [facility] Francis IgE Qn (S)on 05-23-19 Francis IgE RAST class (S) Class 0 Class 0 [facility] Cashew nut IgE Qn (S)on 05-14 Cashew nut IgE RAST class (S) Class 0 Class 0 [facility] Comprehensive metabolic 2000 panelon 05-23-2022 Albumin [Mass/Vol] 4.4 g/dL 3.9 - 4.9 g/dL [facility] ALP [Catalytic activity/Vol] 65 U/L 34 - 123 U/L [facility] ALT [Catalytic activity/Vol] 12 U/L 7 - 38 U/L [facility] Anion gap [Moles/Vol] 12 mmol/L 9 - 18 mmol/L [facility] AST [Catalytic activity/Vol] 25 U/L 13 - 35 U/L [facility] Bilirubin [Mass/Vol] 0.8 mg/dL 0.2 - 1 .3 mg/dL [facility] Calcium [Mass/Vol] 9.9 mg/dL 8.5 - 10. 2 mg/dL [facility] Chloride [Moles/Vol] 101 mmol/L 97 - 10 5 mmol/L [facility] CO2 [Moles/Vol] 25 mmol/L 22 - 30 mmol/L [facility] Creatinine [Mass/Vol] 0.90 mg/dL 0.58 - 0.96 mg/dL [facility] Estimated Glomerular Filtration Rate 67 mL/min/1.73m >=60 mL/min/1.73 m [facility] Glucose [Mass/Vol] 73 mg/dL Low 74 - 99 mg/dL [facility] Potassium [Moles/Vol] 4.7 mmol/L 3.7 - 5.1 mmol/L [facility] Protein [Mass/Vol] 7.6 g/dL 6.3 - 8.0 g/dL [facility] Sodium [Moles/Vol] 138 mmol/L 136 - 144 mmol/L [facility] Urea nitrogen [Mass/Vol] 27 mg/dL High 7 - 21 mg/dL [facility] Gluten IgE Qn (S)on 05-23-19 Gluten IgE RAST class (S) Class 0 Class 0 [facility] Peanut IgE Qn (S)on 05-23-19 Peanut IgE RAST class (S) Class 0 Class 0 [facility] Pecan or [place] Nut IgE Qn (S)on 05-23-2022 [place] Nut IgE RAST class (S) Class 0 Class 0 [facility] URINE CULTUREon 05-23-2022 Bacteria identified Cx Nom (U) No growth (<1,000 CFU/ml) [facility] Urinalysis complete panel (U )on 05-23-2022 Bilirubin Ql (U) Negative Negative [facility] Clarity (Unsp spec) Clear Clear [facility] Color (U) Light Yellow Yellow [facility] Epithelial cells LM.HPF (Urine sed) [#/Area] Few [facility] Glucose Test strip (U) [Mass/Vol] Negative Trace, Negative [facility] Hemoglobin Ql (U) Negative Negative, Trace [facility] Hyaline casts (Urine sed) [#/Area] 1-3 /LPF Abnormal 0 /LPF [facility] Ketones Ql (U) Negative Trace, Negative [facility] Leukocyte esterase Test strip Ql (U) Negative Negative, 25 Cruz/mL [facility] Nitrite Ql (U) Negative Negative [facility] pH (U) 6.5 [pH] 5.0 - 8.0 [facility] Protein (U) [Mass/Vol] 1+ Abnormal Trace , Negative [facility] RBC LM.HPF (Urine sed) [#/Area] 0-3 /HPF 0-3 /HPF [facility] Specific gravity (U) [Rel density] 1.023 1.005 - 1.030 [facility] Urobilinogen Ql (U) Negative Negative [facility] WBC LM.HPF (Urine sed) [#/Area] 0-5 /HPF 0-5 /HPF [facility] Wheat IgE Qn (S)on Wheat IgE RAST class (S) Class 0 Class 0 [facility] CBC W Auto Differential pane l (Bld)on 05-22-2022 Basophils (Bld) [#/Vol] 0.12 10*3/uL High <0.11 k/uL [facility] Basophils/100 WBC (Bld) 1.4 % [facility] Differential cell count method Nom (Bld) Auto [facility] Eosinophils (Bld) [#/Vol] 0.26 10*3/uL <0.46 k/uL [facility] Eosinophils/100 WBC (Bld) 3.0 % [facility] Erythrocyte distribution width (RBC) [Ratio] 14.6 % 11.5 - 15.0 % [facility] Hematocrit (Bld) [Volume fraction] 44.9 % 36.0 - 46.0 % [facility] Hemoglobin (Bld) [Mass/Vol] 14.2 g/dL 11.5 - 15.5 g/dL [facility] Immature granulocytes (Bld) [#/Vol] 0.03 10*3/uL <0.10 k/uL [facility] Immature granulocytes/100 WBC (Bld) 0.3 % [facility] Lymphocytes (Bld) [#/Vol] 3.76 10*3/uL 1.00 - 4.00 k/uL [facility] Lymphocytes/100 WBC (Bld) 42.8 % [facility] MCH (RBC) [Entitic mass] 29.4 pg 26.0 - 34.0 pg [facility] MCHC (RBC) [Mass/Vol] 31.6 g/dL 30.5 - 36.0 g/dL [facility] MCV (RBC) [Entitic vol] 93.0 fL 80.0 - 100.0 fL [facility] Monocytes (Bld) [#/Vol] 0.82 10*3/uL <0.87 k/uL [facility] Monocytes/100 WBC (Bld) 9.3 % [facility] Neutrophils (Bld) [#/Vol] 3.80 10*3/uL 1.45 - 7.50 k/uL [facility] Neutrophils/100 WBC (Bld) 43.2 % [facility] Nucleated RBC (Bld) [#/Vol] <0.01 k/uL [facility] Nucleated RBC/100 WBC (Bld) [Ratio] 0.0 /100 WBC [facility] Platelet mean volume (Bld) [Entitic vol] 10.8 fL 9.0 - 12.7 fL [facility] Platelets (Bld) [#/Vol] 365 10*3/uL 150 - 400 k/uL [facility] RBC (Bld) [#/Vol] 4.83 10*6/uL 3.90 - 5.2 0 m/uL [facility] WBC (Bld) [#/Vol] 8.79 10*3/uL 3.70 - 11.00 k/uL [facility] No Panel Informationon 12-[address] [facility] [address] ABD/PEL W IVCONon 022 [facility] No Panel InformationOrdered By: Ccf Provider on 09-02-2021 [facility] XR Elbow - left AP and Later jones 09-02-2021 IMPRESSION: NO ACUTE FINDINGS. Cartographic Aide: KEYANA Transcribe Date/Time: Sep 02 2021 7:52A [...] - ZZZ_DO_NOT_ USE_DIVISIO N OF RADIOLOGY Provider, [facility] - 09/02/2021 * * *Final [...] preserved. - IMPRESSION IMPRESSION: NO ACUTE FINDINGS. Cartographic Aide: PSCB Transcribe Date/Time: Sep 02 2021 7:52A Dictated by : MALCOM GELLER MD This examination was interpreted and the report reviewed and electronically signed by: MALCOM GELLER MD on Sep 02 2021 7:53AM EST [facility] XR Shoulder - left 2 Viewson 09-02-2021 IMPRESSION: NO ACUTE FINDINGS. Cartographic Aide: PSCB Transcribe Date/Time: Sep 02 2021 7:53A [...] - ZZZ_DO_NOT_ USE_DIVISIO N OF RADIOLOGY Provider, [facility] - 09/02/2021 * * *Final [...] maintained. - IMPRESSION IMPRESSION: NO ACUTE FINDINGS. Cartographic Aide: PSCMykel Transcribe Date/Time: Sep 02 2021 7:53A Dictated by : MALCOM GELLER MD This examination was interpreted and the report reviewed and electronically signed by: MALCOM GELLER MD on Sep 02 2021 7:53AM EST [facility] Panel Informationon 09-01 Radiology Study observation (narrative) [facility] KARTHIK SCREENINGon 08-15-2021 [facility] XR Ankle - right AP and Late ral and obliqueon 01-05-2021 IMPRESSION: No radiographic evidence of acute osseous injury. Plantar calcaneal enthesophyte. Cartographic Aide: KEYANA Transcribe Date/Time: Jan 05 2021 10:38A [...] plantar calcaneal enthesophyte. DIVISION OF RADIOLOGY Provider, [facility] Skyler Warren - 01/05/2021 * * [...] of acute osseous injury. Plantar calcaneal enthesophyte. [facility] Transcribe Date/Time: Jan 05 2021 10:38A Dictated by : ZEKE TIRADO MD This examination was interpreted and the report reviewed and electronically signed by: ZEKE TIRADO MD on Jan 05 2021 10:39AM EST [facility] Radiology Study observation (narrative) [facility] XR Ankle - right AP and Late ral and obliqueOrdered By: Ccf Provider on 01-05-2021 [facility] XR Toes - left 3 Viewson IMPRESSION: Refer to the result. Cartographic Aide: PSCMykel Transcribe Date/Time: Aug 02 2020 12:20P Dictated by : BUCK MARRUFO MD This examination was interpreted and the report reviewed and electronically signed by: BUCK MARRUFO MD on Aug 02 2020 12:25PM [facility] DIVISION OF RADIOLOGY * * *Final [...] proximal interphalangeal joint. DIVISION OF RADIOLOGY Provider, [facility] - 08/02/2020 * * *Final [...] joint. IMPRESSION IMPRESSION: Refer to the result. Cartographic Aide: KEYANA Transcribe Date/Time: Aug 02 2020 12:20P Dictated by : BUCK MARRUFO MD This examination was interpreted and the report reviewed and electronically signed by: BUCK MARRUFO MD on Aug 02 2020 12:25PM EST [facility] Radiology Study observation (narrative) [facility] XR Toes - left 3 ViewsOrdere d By: Ccf Provider on 08-02-2020 [facility] XR CHEST 2V FRONTAL/LATon XR CHEST 2V [...] tissues: Unremarkable. IMPRESSION: No acute radiographic abnormality. Cartographic Aide: [facility] Transcribe Date/Time: May 26 2020 9:36A Dictated by : SALLIE BUTTS MD This examination was interpreted and the report reviewed and electronically signed by: SALLIE BUTTS MD on May 26 2020 9:39AM EST Normal [facility] No Panel Informationon 04-27 [facility] [employer] - Office Visiton 02-11 [employer] - Office Visit Chief Complaint Patient here for pessary check. It is causing her discomfort. [employer] Status: Declined History of Present IllnessDr. Kameron [...] 81 MG Oral Tablet Delayed Release; Therapy: (Recorded:[id number]) to Recorded Dispense: 0 Days ; #: Sufficient; Refill: 0; ZAK = N; Record; Last Updated By: Bety Iverson; 01/28/2020 1:21:26 PM Fontanez Concentrate Oral Concentrate; Therapy: (Recorded:[id number]) to Recorded Dispense: 0 Days ; #: Sufficient; Refill: 0; ZAK = N; Record; Last Updated By: Bety Iverson; 01/28/2020 1:21:27 PM Vitamin D3 25 MCG (1000 UT) Oral Tablet; TAKE 1 TABLET DAILY; Therapy: (Recorded:[id number]) to Recorded Dispense: 0 Days ; #: Sufficient Tablet; Refill: 0; ZAK = N; Record; Last Updated By: Bety Iverson; 01/28/2020 1:21:27 PM Vitals Vital Signs Recorded: 57Rth4844 10:13AM Senxkcgl986 Cesihqwom11 Ucnrud453 lb BMI Ebtdvwphtc61.9 BSA Calculated1.92 Physical Exam Constitutional: Alert and [...] Cx Nom (U) PATIENT: SANDRA SCHMITZ LOCATION: [facility] [id number] : 47 AGE: SEX: F ORDERED BY: ISAEL MELO: URINE COLLECTED: 02/04/20 16:53ANTIBIOTICS AT RASHAAD.: RECEIVED : 02/05/20 00:18SITE: R E S U L T S URINE CULTURE,BACTERIAL FINAL 02/05/20 18:51 NO SIGNIFICANT GROWTH. [facility] Work Phone: [employer] - Office Visiton 01-13 [employer] - Office Visit Chief Complaint recheck pessary, refer from DR. Doll History of Present Xnficwh21 y.o. W and 1 ectopic with prior [...] Tablet; TAKE 1 TABLET DAILY Requested for: [id number]; Last Rx:[id number] Ordered Rx By: Rafael Frank III; Dispense: 90 Days ; #:90 Tablet; Refill: 1;For: Hypothyroidism; ZAK = N; Print Rx; Last Updated By: Bety Iverson; 01/28/2020 1:21:26 PM Aspirin Adult Low Dose 81 MG Oral Tablet Delayed Release; Therapy: (Recorded:[id number]) to Recorded Dispense: 0 Days ; #: Sufficient; Refill: 0; ZAK = N; Record; Last Updated By: Bety Iverson; 01/28/2020 1:21:26 PM [employer]ane[employer] Concentrate Oral Concentrate; Therapy: (Recorded:[id number]) to Recorded Dispense: 0 Days ; #: Sufficient; Refill: 0; ZAK = N; Record; Last Updated By: Bety Iverson; 01/28/2020 1:21:27 PM Vitamin D3 25 MCG (1000 UT) Oral Tablet; TAKE 1 TABLET DAILY; Therapy: (Recorded:[id number]) to Recorded Dispense: 0 Days ; #: Sufficient Tablet; Refill: 0; ZAK = N; Record; Last Updated By: Bety Iverson; 01/28/2020 1:21:27 PM Vitals Vital Signs Recorded: 57Hcs5344 02:16PM Wjpmadma390 Vljwucmvp64 Height5 ft 3 in Zjbxyp251 lb BMI Oqsbhsbkzo79.43 BSA Calculated1.93 LMPyears ago Gravida2 Para1 Physical [...] (788.1) (R30.0) Orders Cult, Urine; Status:Active; Requested for:[id number]; Perform:Lab Services - Lab To Draw (Non-Blood Test); Due:[id number];Ordered; For:Dysuria; Ordered By:Darren Melo; Urinalysis; Status:Active; Requested for:[id number]; Perform:Lab Services - Lab To Draw (Non-Blood Test); Due:[id number];Ordered; For:Dysuria; Ordered By:Darren Melo; Provider Impressions Utero [...] MICROSCOPICon 02-04-2020 BACTERIA 4+ /HPF Abnormal [place]/Po [facility] Comment on above: Performed By: #### L IPID #### [address] [address] RBC (Bld) [#/Vol] NONE Normal 0-5 [facility] Comment on above: Performed By: #### L IPID #### [address] [address] SQUAMOUS EPITH. CELLS 3 /HPF Normal [place] inson/Po [facility] Comment on above: Performed By: #### L IPID #### [address] [address] WBC 1 /HPF Normal 0-5 [place]/[facility] Comment on above: Performed By: #### L IPID #### [address] [address] URINALYSISon 02-04-2020 Appearance (U) Clear Normal CLEAR [place]/P o [facility] Comment on above: Performed By: #### U A #### [address] [address] Bilirubin (U) [Mass/Vol] Negative Normal NEGATIVE [place]/[facility] Comment on above: Performed By: #### U A #### [address] [address] BLOOD Negative Normal NEGATIVE [place]/[facility] Comment on above: Performed By: #### U A #### [address] [address] Color (U) Yellow Normal STRAW,YELLO W [place]/[facility] Comment on above: Performed By: #### U A #### [address] [address] Glucose [Mass/Vol] Negative Normal NEGATIVE [place] on/Po [facility] Comment on above: Performed By: #### U A #### [address] [address] Ketones Ql (U) Negative Normal NEGATIVE [place]/P o [facility] Comment on above: Performed By: #### U A #### [address] [address] Leukocyte esterase Test strip Ql (U) MODERATE(2+) Abnormal NEGATIVE [place] [facility] Comment on above: Performed By: #### U A #### [address] [address] Nitrite Ql (U) Negative Normal NEGATIVE [place]/P o [facility] Comment on above: Performed By: #### U A #### [address] [address] pH (Bld) 6.0 Normal 5.0 - 8.0 [place] [facility] Comment on above: Performed By: #### U A #### [address] [address] Protein (U) [Mass/Vol] Negative Normal NEGATIVE [place]/Po [facility] Comment on above: Performed By: #### U A #### [address] [address] Specific gravity (U) [Rel density] 1.011 Normal 1.005 - 1.035 [place]/Po [facility] Comment on above: Performed By: #### U A #### [address] [address] Urobilinogen Qn (U) <2.0 Normal 0.0 - 1.9 Robert son/Po [facility] Comment on above: Performed By: #### U A #### [address] [address] URINE CULTURE,BACTERIALon URINE CULTURE,BACTERIAL PATIENT: SANDRA SCHMITZ LOCATION: [facility]#: [id number] : 47 AGE: SEX: F ORDERED BY: DARREN MELO SOURCE: URINE COLLECTED: 02/04/20 16:53 ANTIBIOTICS AT RASHAAD.: RECEIVED : 02/05/20 00:18 SITE: R E Eileen U L T S URINE CULTURE,BACTERIAL FINAL 02/05/20 18:51 NO SIGNIFICANT GROWTH. Normal [place]/Po [facility] Comment on above: Performed By: #### L IPID #### [facility] [address] [place] [address] Urinalysison 02-04-2020 Appearance (U) Clear CLEAR [facility] [employer] Work Phone: Color (U) Yellow See Below [facility] [employer] Work Phone: Comment on above: Reference Range: STR AW,YELLOW Glucose Ql (U) Negative NEGATIVE [facility] [employer] Work Phone: Ketones Ql (U) Negative NEGATIVE [facility] [employer] Work Phone: Leukocyte esterase Test strip Ql (U) MODERATE(2+) Abnormal NEGATIVE [facility] [employer] Work Phone: pH (U) 6.0 [pH] 5.0 - 8.0 [facility] [employer] Work Phone: Protein (U) [Mass/Vol] Negative NEGATIVE [facility] [employer] Work Phone: RBC (U) [#/Vol] Negative NEGATIVE [facility] [employer] Phone: Specific gravity (U) [Rel density] 1.011 See Below [facility] [employer] Phone: Comment on above: Reference Range: 1.0 05 - 1.035 Urinalysis Negative NEGATIVE [facility] [employer] Phone: Urinalysis <2.0 0.0 - 1.9 [facility] [employer] Work Phone: Urinalysis, Microscopicon Bacteria LM.HPF (Urine sed) [#/Area] 4+ Abnormal [facility] Work Phone: RBC (Bld) [#/Vol] NONE 0-5 [employer] [employer] Work Phone: Urinalysis, Microscopic 1 {/HPF} 0-5 [facility] Work Phone: Urinalysis, Microscopic 3 {/HPF} [facility] [employer] Work Phone: [employer] - Office Visiton 01-12 [employer] - Office Visit Chief Complaint PT here for a PESSARY check from 10/21/2019 States she thinks she might have to change sizes. [employer] Declined Bety Iverson CMA History of Present [...] Tablet; TAKE 1 TABLET DAILY Requested for: [id number]; Last Rx:[id number] Ordered Rx By: Rafael Frank III; Dispense: [...] PM Vitals Vital Signs Recorded: 28Jan2020 01:21PM Bmtikent175 Yvqptlkqa81 Height5 ft 3 in Adctqf211 lb BMI Gvurgfutoa38.07 BSA Calculated1.93 Physical Exam Constitutional: Alert and [...] 14.0 % Normal 11.5 - 14.5 [facility] Comment on above: Performed By: #### C BC #### [address] [address] Hematocrit (Bld) [Volume fraction] 45.0 % Normal 36.0 - 46.0 [facility] Comment on above: Performed By: #### C BC #### [address] [address] Hemoglobin (Bld) [Mass/Vol] 14.0 g/dL Normal 12.0 - 16.0 [facility] Comment on above: Performed By: #### C BC #### [address] [address] MCHC (RBC) [Mass/Vol] 31.1 g/dL Low 32.0 - 36.0 [facility] Comment on above: Performed By: #### C BC #### [address] [address] MCV (RBC) [Entitic vol] 93 fL Normal 80 - 100 [place] [facility] Comment on above: Performed By: #### C BC #### [address] [address] Platelets (Bld) [#/Vol] 369 10*3/uL Normal 150 - 450 [place] [facility] Comment on above: Performed By: #### C BC #### [address] [address] RBC (Bld) [#/Vol] 4.83 x10E12/L Normal 4.00 - 5.20 [place] inson/Po [facility] Comment on above: Performed By: #### C BC #### [address] [address] WBC (Bld) [#/Vol] 8.1 10*3/uL Normal 4.4 - 11.3 [place] on/Po [facility] Comment on above: Performed By: #### C BC #### [address] [address] COMPREHENSIVE PANELon 2019 Albumin [Mass/Vol] 4.2 g/dL Normal 3.4 - 5.0 [place] on/Po [facility] Comment on above: Performed By: #### C MP #### [address] [address] ALP [Catalytic activity/Vol] 58 U/L Normal 33 - 136 [place]/[facility] Comment on above: Performed By: #### C MP #### [address] [address] ALT [Catalytic activity/Vol] 11 U/L Normal 7 - 45 [place]/[facility] Comment on above: Result Comment: Shelby ents treated with Sulfasalazine may generate falsely decreased results for ALT. Performed By: #### C MP #### [address] [address] Anion gap [Moles/Vol] 10 mmol/L Normal 10 - 20 [place] inson/Po [facility] Comment on above: Performed By: #### C MP #### [address] [address] AST [Catalytic activity/Vol] 15 U/L Normal 9 - 39 [place] [facility] Comment on above: Performed By: #### C MP #### [address] [address] Bilirubin [Mass/Vol] 0.4 mg/dL Normal 0.0 - 1.2 [place] nson/Po [facility] Comment on above: Performed By: #### C MP #### [address] [address] Calcium [Mass/Vol] 9.5 mg/dL Normal 8.6 - 10.3 [place] on/Po [facility] Comment on above: Performed By: #### C MP #### [address] [address] Chloride [Moles/Vol] 104 mmol/L Normal 98 - 107 [place] nson/Po [facility] Comment on above: Performed By: #### C MP #### [address] [address] Creatinine [Mass/Vol] 0.63 mg/dL Normal 0.50 - 1.05 [place]/Po [facility] Comment on above: Performed By: #### C MP #### [address] [address] GFR- AM. >60 Normal >60 [place]/ [facility] Comment on above: Result Comment: CALC ULATIONS OF ESTIMATED GFR ARE PERFORMED USING THE MDRD STUDY EQUATION FOR THE IDMS-TRACEABLE CREATININE METHODS. CLIN CHEM 2007;53:766-72 Performed By: #### C MP #### [address] [address] GFR-NON AM. >60 Normal >60 [place] son/Po [facility] Comment on above: Performed By: #### C MP #### [address] [address] Glucose [Mass/Vol] 87 mg/dL Normal 74 - 99 [place] on/Po [facility] Comment on above: Performed By: #### C MP #### [address] [address] HCO3 (Bld) [Moles/Vol] 31 mmol/L Normal 21 - 32 [place]/Po [facility] Comment on above: Performed By: #### C MP #### [address] [address] Potassium [Moles/Vol] 4.4 mmol/L Normal 3.5 - 5.3 [place] inson/Po [facility] Comment on above: Performed By: #### C MP #### [address] [address] Protein [Mass/Vol] 7.6 g/dL Normal 6.4 - 8.2 [place] on/Po [facility] Comment on above: Performed By: #### C MP #### [address] [address] Sodium [Moles/Vol] 141 mmol/L Normal 136 - 145 [place] on/Po [facility] Comment on above: Performed By: #### C MP #### [address] [address] Urea nitrogen [Mass/Vol] 13 mg/dL Normal 6 - 23 [place]/[facility] Comment on above: Performed By: #### C MP #### [address] [address] [facility] 01-22-2020 Cholesterol [Mass/Vol] 248 mg/dL above hig h threshold 0 - 199 [facility] [employer] Work Phone: Comment on above: . AGE [...] dosing. Cholesterol in HDL [Mass/Vol] 51.9 mg/dL [facility] [employer] Phone: Comment on above: . AGE VERY LOW LOW N ORMAL HIGH 0-19 Y < 35 < 40 40-45 ---- 20-24 Y ---- < 40 >45 ---- >24 Y ---- < 40 40-60 >60. Hematologyon 01-22-2020 Hematocrit (Bld) [Volume fraction] 45.0 % See Below [facility] [employer] Phone: Comment on above: Reference Range: 36. 0 - 46.0 Hemoglobin (Bld) [Mass/Vol] 14.0 g/dL See Below [facility] [employer] Phone: Comment on above: Reference Range: 12. 0 - 16.0 MCV (RBC) [Entitic vol] 93 fL 80 - 100 [facility] [employer] Work Phone: Platelets (Bld) [#/Vol] 369 {x10E9/L} 150 - 450 [facility] [employer] Phone: RBC (Bld) [#/Vol] 4.83 {x10E12/L} See Below Wo [facility] [employer] Phone: Comment on above: Reference Range: 4.0 0 - 5.20 WBC (Bld) [#/Vol] 8.1 {x10E9/L} 4.4 - 11.3 [facility] [employer] Work Phone: LIPID PANEL NON-FASTINGon Cholesterol [Mass/Vol] 248 mg/dL High 0 - 199 [facility] Comment on above: Result Comment: [...] dosing. Performed By: #### L IPIN #### [address] [address] Cholesterol in HDL [Mass/Vol] 51.9 mg/dL Normal [place]/[facility] Comment on above: Result Comment: . AGE VERY LOW LOW NORMAL HIGH 0-19 Y < 35 < 40 40-45 ---- 20-24 Y ---- < 40 >45 ---- >24 Y ---- < 40 40-60 >60 . Performed By: #### L IPIN #### [address] [address] Cholesterol.total/Chol esterol in HDL [Mass ratio] 4.8 {ratio} Normal [place]/[facility] Comment on above: Result Comment: REF VALUES DESIRABLE < 3.4 HIGH RISK > 5.0 Performed By: #### L IPIN #### [address] [address] NON-HDL CHOLESTEROL 196 mg/dL Normal Robert [facility] Comment on above: Result Comment: AGE DESIRABLE BORDERLINE HIGH HIGH VERY HIGH 0-19 Y 0 - 119 120 - 144 >/= 145 >/= 160 20-24 Y 0 - 149 150 - 189 >/= 190 ---- >24 Y 30 MG/DL ABOVE LDL CHOLESTEROL GOAL . Performed By: #### L IPIN #### [address] [address] Metabolic Panelon 01-22-2020 ALP [Catalytic activity/Vol] 58 U/L 33 - 136 [facility] [employer] Work Phone: Anion gap [Moles/Vol] 10 mmol/L 10 - 20 [facility] [employer] Work Phone: Bilirubin [Mass/Vol] 0.4 mg/dL 0.0 - 1.2 [facility] [employer] Work Phone: Calcium [Mass/Vol] 9.5 mg/dL 8.6 - 10.3 Women are-N [facility] [employer] Phone: Chloride [Moles/Vol] 104 mmol/L 98 - 107 [facility] [employer] Work Phone: CO2 [Moles/Vol] 31 mmol/L 21 - 32 [facility] -[facility] [employer] Work Phone: Creatinine [Mass/Vol] 0.63 mg/dL See Below [facility] [employer] Phone: Comment on above: Reference Range: 0.5 0 - 1.05 Glucose [Mass/Vol] 87 mg/dL 74 - 99 [facility] are-N [facility] [employer] Phone: Potassium [Moles/Vol] 4.4 mmol/L 3.5 - 5.3 [facility] [employer] Phone: Protein [Mass/Vol] 7.6 g/dL 6.4 - 8.2 [facility] are-N [facility] [employer] Phone: Sodium [Moles/Vol] 141 mmol/L 136 - 145 [facility] are-N [facility] [employer] Phone: Urea nitrogen [Mass/Vol] 13 mg/dL 6 - 23 [facility] [employer] Work Phone: Otheron 01-22-2020 Albumin BCP dye [Mass/Vol] 4.2 g/dL 3.4 - 5.0 [facility] [employer] Work Phone: ALT With P-5'-P [Catalytic activity/Vol] 11 U/L 7 - 45 [facility] [employer] Phone: Comment on above: Patients treated wit h Sulfasalazine may generate falsely decreased results for ALT. AST With P-5'-P [Catalytic activity/Vol] 15 U/L 9 - 39 [employer] Phone: Cholesterol non HDL [Mass/Vol] 196 mg/dL [employer] Phone: Comment on above: AGE DESIRABLE BORDER LINE HIGH HIGH VERY HIGH 0-19 Y 0 - 119 120 - 144 >/= 145 >/= 160 20-24 Y 0 - 149 150 - 189 >/= 190 ---- >24 Y 30 MG/DL ABOVE LDL CHOLESTEROL GOAL. Cholesterol.total/Chol esterol in HDL [Mass ratio] 4.8 {ratio} [employer] Phone: Comment on above: REF VALUESDESIRABLE < 3.4HIGH RISK > 5.0 Erythrocyte distribution width (RBC) [Ratio] 14.0 % See Below [employer] Phone: Comment on above: Reference Range: 11. 5 - 14.5 MCHC (RBC) [Mass/Vol] 31.1 g/dL below low threshold See Below [employer] Phone: Comment on above: Reference Range: 32. 0 - 36.0 >60 >60 [employer] Phone: Comment on above: CALCULATIONS OF AARON MATED GFR ARE PERFORMED USING THE MDRD STUDY EQUATION FOR THE IDMS-TRACEABLE CREATININE METHODS. CLIN CHEM 2007;53:766-72 TSHon 01-22-2020 TSH Qn 3.22 m[IU]/L Normal 0.44 - 3.98 [facility] Comment on above: Result Comment: TSH testing is performed using different testing methodology at [facility] than [facility]. Direct result comparisons should only be made within the same method. Performed By: #### T [facility] #### [facility] [address] [place] [address] TSH - Thyroid Stimulating Ho rmone, Serumon 01-22-2020 TSH Qn 3.22 {mIU/L} See Below [employer] Phone: Comment on above: Reference Range: 0.4 4 - 3.98 TSH testing is performed using different testing methodology at [facility] than at other [facility]. Direct result comparisons should only be made within the same method. [employer] TRIMMER - Office Visiton [employer] TRIMMER - Office Visit Chief Complaint 3 month [...] Vital Signs Recorded: 21Oct2019 01:20PMRecorded: 21Oct2019 01:19PM [id number] Esnwpvobb76 Uvlcws863 lb BMI Nhgbsjtbwd44.54 BSA Calculated1.91 Physical Exam Constitutional: Alert and [...] 14.2 % Normal 11.5 - 14.5 [facility] Comment on above: Performed By: #### C BC #### [address] [address] Hematocrit (Bld) [Volume fraction] 45.4 % Normal 36.0 - 46.0 [facility] Comment on above: Performed By: #### C BC #### [facility] [address] [place] [id number] Hemoglobin (Bld) [Mass/Vol] 13.9 g/dL Normal 12.0 - 16.0 [facility] Comment on above: Performed By: #### C BC #### [address] [address] MCHC (RBC) [Mass/Vol] 30.6 g/dL Low 32.0 - 36.0 [place]/Po [facility] Comment on above: Performed By: #### C BC #### [address] [address] MCV (RBC) [Entitic vol] 92 fL Normal 80 - 100 [place]/[facility] Comment on above: Performed By: #### C BC #### [address] [address] Platelets (Bld) [#/Vol] 349 10*3/uL Normal 150 - 450 [place]/[facility] Comment on above: Performed By: #### C BC #### [address] [address] RBC (Bld) [#/Vol] 4.91 x10E12/L Normal 4.00 - 5.20 [place] inson/Po [facility] Comment on above: Performed By: #### C BC #### [address] [address] WBC (Bld) [#/Vol] 8.0 10*3/uL Normal 4.4 - 11.3 [place] on/Po [facility] Comment on above: Performed By: #### C BC #### [address] [address] COMPREHENSIVE PANELon 2019 Albumin [Mass/Vol] 3.9 g/dL Normal 3.4 - 5.0 [place] on/Po [facility] Comment on above: Performed By: #### C MP #### [address] [address] ALP [Catalytic activity/Vol] 66 U/L Normal 33 - 136 [place]/[facility] Comment on above: Performed By: #### C MP #### [address] [address] ALT [Catalytic activity/Vol] 10 U/L Normal 7 - 45 [place] Comment on above: Result Comment: [place] ents treated with Sulfasalazine may generate falsely decreased results for ALT. Performed By: #### C MP #### [address] [address] Anion gap [Moles/Vol] 10 mmol/L Normal 10 - 20 [place] inson/Po [facility] Comment on above: Performed By: #### C MP #### [address] [address] AST [Catalytic activity/Vol] 14 U/L Normal 9 - 39 [place]/[facility] Comment on above: Performed By: #### C MP #### [address] [address] Bilirubin [Mass/Vol] 0.5 mg/dL Normal 0.0 - 1.2 [place] nson/Po [facility] Comment on above: Performed By: #### C MP #### [place] [address] Calcium [Mass/Vol] 9.1 mg/dL Normal 8.6 - 10.3 [place] on/Po [facility] Comment on above: Performed By: #### C MP #### [place] [address] Chloride [Moles/Vol] 106 mmol/L Normal 98 - 107 [place] nson/Po [facility] Comment on above: Performed By: #### C MP #### [address] [address] Creatinine [Mass/Vol] 0.59 mg/dL Normal 0.50 - 1.05 [place]/Po [facility] Comment on above: Performed By: #### C MP #### [address] [address] GFR- AM. >60 Normal >60 [place]/ [facility] Comment on above: Result Comment: CALC ULATIONS OF ESTIMATED GFR ARE PERFORMED USING THE MDRD STUDY EQUATION FOR THE IDMS-TRACEABLE CREATININE METHODS. CLIN CHEM 2007;53:766-72 Performed By: #### C MP #### [address] [address] GFR-NON AM. >60 Normal >60 [place] son/Po [facility] Comment on above: Performed By: #### C MP #### [address] [address] Glucose [Mass/Vol] 75 mg/dL Normal 74 - 99 [place] on/Po [facility] Comment on above: Performed By: #### C MP #### [address] [address] HCO3 (Bld) [Moles/Vol] 29 mmol/L Normal 21 - 32 [place]/Po [facility] Comment on above: Performed By: #### C MP #### [address] [address] Potassium [Moles/Vol] 4.2 mmol/L Normal 3.5 - 5.3 [place] inson/Po [facility] Comment on above: Performed By: #### C MP #### [address] [address] Protein [Mass/Vol] 6.9 g/dL Normal 6.4 - 8.2 [place] on/Po [facility] Comment on above: Performed By: #### C MP #### [address] [address] Sodium [Moles/Vol] 141 mmol/L Normal 136 - 145 [place] on/Po [facility] Comment on above: Performed By: #### C MP #### [address] [address] Urea nitrogen [Mass/Vol] 17 mg/dL Normal 6 - 23 [place] [facility] Comment on above: Performed By: #### C MP #### [address] [address] LIPID PANEL (CORONARY RISK 2 )on 07-22-2019 Cholesterol [Mass/Vol] 243 mg/dL High 0 - 199 [place]/Po [facility] Comment on above: Result Comment: [...] dosing. Performed By: #### L IPID #### [address] [address] Cholesterol in HDL [Mass/Vol] 47.0 mg/dL Normal [facility] Comment on above: Result Comment: . AGE VERY LOW LOW NORMAL HIGH 0-19 Y < 35 < 40 40-45 ---- 20-24 Y ---- < 40 >45 ---- >24 Y ---- < 40 40-60 >60 . Performed By: #### L IPID #### [address] [address] Cholesterol in LDL [Mass/Vol] 151 mg/dL High 0 - 99 [facility] Comment on above: Result Comment: . NEAR BORD AGE DESIRABLE OPTIMAL HIGH HIGH VERY HIGH 0-19 Y 0 - 109 --- 110-129 >/= 130 ---- 20-24 Y 0 - 119 --- 120-159 >/= 160 ---- >24 Y 0 - 99 100-129 130-159 160-189 >/=190 . Performed By: #### L IPID #### [address] [address] Cholesterol in VLDL [Mass/Vol] 45 mg/dL High 0 - 40 [facility] Comment on above: Performed By: #### L IPID #### [address] [address] Cholesterol.total/Chol esterol in HDL [Mass ratio] 5.2 {ratio} Abnormal [facility] Comment on above: Result Comment: REF VALUES DESIRABLE < 3.4 HIGH RISK > 5.0 Performed By: #### L IPID #### [address] [address] NON-HDL CHOLESTEROL 196 mg/dL Normal Robert son/[facility] Comment on above: Result Comment: AGE DESIRABLE BORDERLINE HIGH HIGH VERY HIGH 0-19 Y 0 - 119 120 - 144 >/= 145 >/= 160 20-24 Y 0 - 149 150 - 189 >/= 190 ---- >24 Y 30 MG/DL ABOVE LDL CHOLESTEROL GOAL . Performed By: #### L IPID #### [facility] [address] [place] [address] Triglyceride [Mass/Vol] 225 mg/dL High 0 - 149 [place]/[facility] Comment on above: Result Comment: [...] dosing. Performed By: #### L IPID #### [address] [address] [employer] TR[employer]MER - Office Visiton 07-12 [employer] - Office Visit Chief Complaint Pessary Follow Up History of Present Illness here for recheck of pessary, no bleeding. moving to [place] Review of Systems Constitutional: no fever, no [...] Hypothyroidism; ZAK = N; Verified Transmission to [facility]; Last Updated By: [employer]; 03/18/2019 8:27:37 AM Aspirin Adult Low Dose [...] AM Vitals Vital Signs Recorded: 22Jul2019 11:25AM [id number] Oiptoohbn26 Udpbyr845 lb Physical Exam Constitutional: Alert and in [...] Jul 22 2019 11:50AM EST (Author) Normal [employer] TSHon 07-22-2019 TSH Qn 2.12 m[IU]/L Normal 0.44 - 3.98 [place]/[facility] Comment on above: Result Comment: Note new pediatric reference range as of 07/17/2019. TSH testing is performed using different testing methodology at [facility] than at [facility]. Direct result comparisons should only be made within the same method. Performed By: #### T SH2 #### [facility] [address] [place] [address] VITAMIN D, 25-HYDROXYon 07-12 VITAMIN D, 25-HYDROXY 31 ng/mL Normal [place] ins/[facility] Comment on above: Result Comment: . DEFICIENCY: < 20 NG/ML INSUFFICIENCY: 20-29 NG/ML SUFFICIENCY: 30-100 NG/ML THIS ASSAY ACCURATELY QUANTIFIES THE SUM OF VITAMIN D3, 25-HYDROXY AND VIT D2,25-HYDROXY. Performed By: #### V TDOH #### [facility] [address] [place] [address] CBCon 01-22-2019 Erythrocyte distribution width (RBC) [Ratio] 14.8 % Normal 11.4-16.0 [facility] Hematocrit (Bld) [Volume fraction] 42.5 % Normal 34.7-44.9 [facility] Hemoglobin (Bld) [Mass/Vol] 14.1 g/dL Normal 11.3-15.6 [facility] MCH (RBC) [Entitic mass] 29.1 pg Normal 26.5-33.0 [facility] MCHC (RBC) [Mass/Vol] 33.1 g/dL Normal 32.6-36.0 [facility] MCV (RBC) [Entitic vol] 87.7 fL Normal 80.0-100.0 [facility] Mean Plt Vol 8.8 fL Normal 7.2-10.3 [facility] Platelets (Bld) [#/Vol] 362 10*3/uL Normal 144-400 [facility] RBC (Bld) [#/Vol] 4.84 x10E12/L Normal 3.78-5.45 [facility] WBC (Bld) [#/Vol] 7.4 10*3/uL Normal 3.5-11.5 [facility] CMPon 01-22-2019 Albumin [Mass/Vol] 4.0 g/dL Normal 3.5-5.0 [facility] Alk Phos 62 IU/L Normal 32-91 [facility] ALT [Catalytic activity/Vol] 12 U/L Low 14-63 [facility] Anion gap [Moles/Vol] 11.0 mmol/L Normal 5.0-19.0 [facility] AST [Catalytic activity/Vol] 18 U/L Normal 15-41 [facility] Bilirubin [Mass/Vol] 0.5 mg/dL Normal 0.3-1.2 [facility] Bun/CretRatio 18.1 Normal [facility] Calcium [Mass/Vol] 9.5 mg/dL Normal 8.1-10.1 [facility] Chloride [Moles/Vol] 104 mmol/L Normal 98-107 [facility] CO2 [Moles/Vol] 25 mmol/L Normal 22-32 [facility] Creatinine [Mass/Vol] 0.72 mg/dL Normal 0.60-1.30 [facility] Glucose [Mass/Vol] 84 mg/dL Normal 70-100 [facility] Osmolality-Calc 279 mOsm/kg Normal [facility] Potassium [Moles/Vol] 4.0 mmol/L Normal 3.4-5.1 [facility] Protein [Mass/Vol] 7.3 g/dL Normal 6.5-8.1 [facility] Sodium [Moles/Vol] 140 mmol/L Normal 136-144 [facility] Urea nitrogen [Mass/Vol] 13 mg/dL Normal 8-26 [facility] LDL Calculatedon 01-22-2019 Cholesterol in LDL [Mass/Vol] 124 mg/dL Normal [facility] Comment on above: Result Comment: Calculated LDL is unreliable when Triglyceride result is greater than 400. TSHon 01-22-2019 TSH Qn 2.18 uIU/mL Normal 0.34-5.60 [facility] Vit D 25OHon 01-22-2019 Vit D 25-OH 22 ng/mL Normal [facility] Comment on above: Result Comment: Deficient: Less than 20 ng/mL Insufficient: 20 to less than 30 ng/mL Sufficient: 30 to 100 ng/mL Upper Safety Limit: Greater than 100 ng/mL ZLipidon 01-22-2019 Cholesterol [Mass/Vol] 219 mg/dL High 0-200 [facility] Cholesterol in HDL [Mass/Vol] 51 mg/dL Normal [facility] Triglyceride [Mass/Vol] 222 mg/dL High 0-149 [facility] JOSÉ ANTONIO/MAMMO SCRN DIGIT BILon 0 12-06-2018 Bilirubin [Mass/Vol] Patient Name: SANDRA SCHMITZ STUDY: JOSÉ ANTONIO/MAMMO SCRN DIGIT MADDI; 12/05/2018 12:40 pm INDICATION: Screening. COMPARISON: 08/22/2017 ACCESSION NUMBER(S): [id number] ORDERING CLINICIAN: MANE SOLIS FINDINGS: The breasts are almost entirely fatty. No suspicious masses or calcifications are identified. This study was interpreted with CAD. Markers: [place]- skin lesion; triangle- palpable abnormality IMPRESSION: No mammographic evidence of malignancy. BI-RADS CATEGORY: Category: 1 - Negative. Recommendation: Continued age appropriate screening mammography For any future breast imaging appointments, please call [phone]). Dictated by: Electronically Signed by: Isiah Dacosta Electronically Signed on: 12/06/2018 4:18 PM Normal [facility] NUC/HIDA W/ CCKon 11-08-2018 NUC/HIDA W/ CCK Patient Name: SANDRA SCHMITZ STUDY: NUC/HIDA W/ CCK; 11/08/2018 3:09 pm INDICATION: RUQ PAIN. COMPARISON: Ultrasound of the abdomen 10/21/2018, CT of the abdomen 10/31/2018 ACCESSION NUMBER(S): [id number] ORDERING CLINICIAN: LC MCCARTHY TECHNIQUE: DIVISION OF [...] as stated. This study was interpreted at [facility], [place], [place]. Dictated by: Electronically Signed by: Moises Macdonald Electronically Signed on: 11/08/2018 3:40 PM Normal [facility] JOSÉ ANTONIO/CT ABD/PELVIS WITHon JOSÉ ANTONIO/CT ABD/PELVIS WITH Patient Name: SANDRA SCHMITZ STUDY: Unremarkable. JOSÉ ANTONIO/CT ABD/PELVIS WITH; 10/31/2018 12:26 pm INDICATION: PAIN. COMPARISON: 08/22/2017 ACCESSION NUMBER(S): [id number] ORDERING CLINICIAN: LC MCCARTHY TECHNIQUE: CT of [...] Electronically Signed on: 11/04/2018 1:[address] [facility] Creaton 10-29-2018 Creatinine [Mass/Vol] 0.64 mg/dL Normal 0.60-1.30 [facility] RUL/ABDOMEN LIMITEDon 2018 RUL/ABDOMEN LIMITED Patient Name: SANDRA SCHMITZ STUDY: RUL/ABDOMEN LIMITED; 10/21/2018 9:19 am INDICATION: RUQ ABD PAIN--EAL GB. COMPARISON: None. ACCESSION NUMBER(S): [id number] ORDERING CLINICIAN: LC MCCARTHY TECHNIQUE: Multiple images [...] Electronically Signed on: 10/21/2018 10:09 AM Normal [facility] CBCon 08-08-2018 Erythrocyte distribution width (RBC) [Ratio] 15.1 % Normal 11.4-16.0 [facility] Hematocrit (Bld) [Volume fraction] 42.3 % Normal 34.7-44.9 [facility] Hemoglobin (Bld) [Mass/Vol] 13.9 g/dL Normal 11.3-15.6 [facility] MCH (RBC) [Entitic mass] 28.7 pg Normal 26.5-33.0 [facility] MCHC (RBC) [Mass/Vol] 32.8 g/dL Normal 32.6-36.0 [facility] MCV (RBC) [Entitic vol] 87.7 fL Normal 80.0-100.0 [facility] Mean Plt Vol 8.7 fL Normal 7.2-10.3 [facility] Platelets (Bld) [#/Vol] 367 10*3/uL Normal 144-400 [facility] RBC (Bld) [#/Vol] 4.82 x10E12/L Normal 3.78-5.45 [facility] WBC (Bld) [#/Vol] 7.4 10*3/uL Normal 3.5-11.5 [place] [facility] CMPon 08-08-2018 Albumin [Mass/Vol] 4.0 g/dL Normal 3.5-5.0 [facility] Alk Phos 56 IU/L Normal 32-91 [facility] ALT [Catalytic activity/Vol] 12 U/L Low 14-63 [facility] Anion gap [Moles/Vol] 12.0 mmol/L Normal 5.0-19.0 [facility] AST [Catalytic activity/Vol] 22 U/L Normal 15-41 [facility] Bilirubin [Mass/Vol] 0.3 mg/dL Normal 0.3-1.2 [facility] Bun/CretRatio 20.2 Normal [facility] Calcium [Mass/Vol] 9.1 mg/dL Normal 8.1-10.1 [facility] Chloride [Moles/Vol] 102 mmol/L Normal 98-107 [facility] CO2 [Moles/Vol] 27 mmol/L Normal 22-32 [facility] Creatinine [Mass/Vol] 0.84 mg/dL Normal 0.60-1.30 [facility] Glucose [Mass/Vol] 80 mg/dL Normal 70-100 [place] [facility] Osmolality-Calc 282 mOsm/kg Normal [facility] Potassium [Moles/Vol] 3.9 mmol/L Normal 3.4-5.1 [facility] Protein [Mass/Vol] 7.3 g/dL Normal 6.5-8.1 [facility] Sodium [Moles/Vol] 141 mmol/L Normal 136-144 [place] [facility] Urea nitrogen [Mass/Vol] 17 mg/dL Normal 8-26 [facility] LDL Calculatedon 08-08-2018 Cholesterol in LDL [Mass/Vol] 144 mg/dL Normal [facility] Comment on above: Result Comment: Calculated LDL is unreliable when Triglyceride result is greater than 400. ZLipidon 08-08-2018 Cholesterol [Mass/Vol] 237 mg/dL High 0-200 [facility] Cholesterol in HDL [Mass/Vol] 49 mg/dL Normal [facility] Triglyceride [Mass/Vol] 222 mg/dL High 0-149 [facility] Vital Signs Date Time Vital Sign Value Performing Clinician Facility 11-13-2024 23:09-0400 Body temperature 98 [degF] Dr. Mandeep Houser DO Work Phone: [facility] 11-13-2024 23:09-0400 Diastolic blood pressure 63 mm[Hg] Dr. Mandeep Houser DO Work Phone: [facility] 11-13-2024 23:09-0400 Heart rate 65 /min Dr. Mandeep Houser DO Work Phone: [facility] 11-13-2024 23:09-0400 Respiratory rate 17 /min Dr. Mandeep Houser DO Work Phone: [facility] 11-13-2024 23:09-0400 SaO2% (BldA) [Mass fraction] 100 % Dr. Mandeep Houser DO Work Phone: [facility] 11-13-2024 23:09-0400 Systolic blood pressure 101 mm[Hg] Dr. Mandeep Houser DO Work Phone: [facility] 11-13-2024 17:55-0400 Body height 160.[address] Mandeep Houser DO Work Phone: [facility] 11-13-2024 17:55-0400 Body mass index (BMI) [Ratio] 35.3 kg/m2 Dr. Mandeep Houser DO Work Phone: [facility] 11-13-2024 17:55-0400 Body weight 90.[address] Mandeep Houser DO Work Phone: [facility] 11-03-2024 15:12-0400 Body height 162.6 cm Morenita Hill APRN.CNP Work Phone: [facility] 11-03-2024 15:12-0400 Body mass index (BMI) [Ratio] 32.62 kg/m2 Morenita Hill A[employer]ATIC LIFE LABORER.MEDICAL SCIENTIST Work Phone: [facility] 11-03-2024 15:12-0400 Body weight 86.2 kg Morenita Hill A[employer]ATIC LIFE LABORER.MEDICAL SCIENTIST Work Phone: [facility] 11-03-2024 15:12-0400 Diastolic blood pressure 71 mm[Hg] Morenita Hill AQUATIC LIFE LABORER.MEDICAL SCIENTIST Work Phone: [facility] 11-03-2024 15:12-0400 Heart rate 70 /min Morenita Hill AQUATIC LIFE LABORER.MEDICAL SCIENTIST Work Phone: [facility] 11-03-2024 15:12-0400 SaO2% (BldA) [Mass fraction] 93 % Morenita Hill AQUATIC LIFE LABORER.MEDICAL SCIENTIST Work Phone: [facility] 11-03-2024 15:12-0400 Systolic blood pressure 119 mm[Hg] Morenita Hill AQUATIC LIFE LABORER.MEDICAL SCIENTIST Work Phone: [facility] 11-03-2024 14:05-0400 Body height 162.6 cm Pili Wells MD Work Phone: [facility] 11-03-2024 14:05-0400 Body mass index (BMI) [Ratio] 33.34 kg/m2 Pili Wells MD Work Phone: [facility] 11-03-2024 14:05-0400 Body weight 88.1 kg Pili Wells MD Work Phone: [facility] 11-03-2024 14:05-0400 Diastolic blood pressure 85 mm[Hg] Pili Wells MD Work Phone: [facility] 11-03-2024 14:05-0400 Heart rate 67 /min Pili Wells MD Work Phone: [facility] 11-03-2024 14:05-0400 Systolic blood pressure 126 mm[Hg] Pili Wells MD Work Phone: [facility] 07-21-2024 15:55-0400 Body mass index (BMI) [Ratio] 34.19 kg/m2 Mandeep Houser DO Work Phone: [facility] 07-21-2024 15:55-0400 Body temperature 97 [degF] Mandeep Houser DO Work Phone: [facility] 07-21-2024 15:55-0400 Body weight 87.54 kg Mandeep Houser DO Work Phone: [facility] 07-21-2024 15:55-0400 Diastolic blood pressure 82 mm[Hg] Mandeep Houser DO Work Phone: [facility] 07-21-2024 15:55-0400 Heart rate 76 /min Mandeep Houser DO Work Phone: [facility] 07-21-2024 15:55-0400 Respiratory rate 20 /min Mandeep Houser DO Work Phone: [facility] 07-21-2024 15:55-0400 Systolic blood pressure 146 mm[Hg] Mandeep Houser DO Work Phone: [facility] 07-08-2024 14:47-0500 Body mass index (BMI) [Ratio] 32.59 kg/m2 Mandeep Houser DO Work Phone: [facility] 07-08-2024 14:47-0500 Body weight 83.46 kg Mandeep Houser DO Work Phone: [facility] 07-08-2024 14:47-0500 Diastolic blood pressure 70 mm[Hg] Mandeep Houser DO Work Phone: [facility] 07-08-2024 14:47-0500 Heart rate 66 /min Mandeep Houser DO Work Phone: [facility] 07-08-2024 14:47-0500 SaO2% (BldA) [Mass fraction] 96 % Mandeep Houser DO Work Phone: [facility] 07-08-2024 14:47-0500 Systolic blood pressure 110 mm[Hg] Mandeep Houser DO Work Phone: [facility] 02-07-2024 14:13-0400 Body mass index (BMI) [Ratio] 34.84 kg/m2 Angel [place] DO Work Phone: [facility] 02-07-2024 14:13-0400 Body weight 89.2 kg Angel [place] DO Work Phone: [facility] 02-07-2024 14:13-0400 Diastolic blood pressure 78 mm[Hg] Angel [place] DO Work Phone: [facility] 02-07-2024 14:13-0400 Heart rate 83 /min Angel [place] DO Work Phone: [facility] 02-07-2024 14:13-0400 SaO2% (BldA) [Mass fraction] 95 % Angel [place] DO Work Phone: [facility] 02-07-2024 14:13-0400 Systolic blood pressure 132 mm[Hg] Angel [place] DO Work Phone: [facility] 01-15-2024 12:54-0400 Diastolic blood pressure 67 mm[Hg] Pili Wells MD Work Phone: [facility] 01-15-2024 12:54-0400 Heart rate 65 /min Pili Wells MD Work Phone: [facility] 01-15-2024 12:54-0400 Systolic blood pressure 104 mm[Hg] Pili Wells MD Work Phone: [facility] 01-15-2024 12:48-0400 Body mass index (BMI) [Ratio] 34.44 kg/m2 Pili Wells MD Work Phone: [facility] 01-15-2024 12:48-0400 Body weight 88.2 kg Pili Wells MD Work Phone: [facility] 01-15-2024 12:48-0400 SaO2% (BldA) [Mass fraction] 96 % Pili Wells MD Work Phone: [facility] Comment on above: 11-01-2023 09:13-0400 Body height 160 cm Mercedes Vera A[employer]ATIC LIFE LABORER.MEDICAL SCIENTIST Work Phone: [facility] 11-01-2023 09:13-0400 Body mass index (BMI) [Ratio] 34.01 kg/m2 Mercedes Vera A[employer]ATIC LIFE LABORER.MEDICAL SCIENTIST Work Phone: [facility] 11-01-2023 09:13-0400 Body weight 87.09 kg Mercedes Vera A[employer]ATIC LIFE LABORER.MEDICAL SCIENTIST Work Phone: [facility] 11-01-2023 09:13-0400 Diastolic blood pressure 79 mm[Hg] Mercedes Vera AQUATIC LIFE LABORER.MEDICAL SCIENTIST Work Phone: [facility] 11-01-2023 09:13-0400 Heart rate 68 /min Mercedes Vera AQUATIC LIFE LABORER.MEDICAL SCIENTIST Work Phone: [facility] 11-01-2023 09:13-0400 Systolic blood pressure 125 mm[Hg] Mercedes Vera AQUATIC LIFE LABORER.MEDICAL SCIENTIST Work Phone: [facility] 10-31-2023 15:08-0400 Body mass index (BMI) [Ratio] 34.37 kg/m2 Mandeep Houser DO Work Phone: [facility] [facility] [place] 10-31-2023 15:08-0400 Body temperature 96.4 [degF] Mandeep Houser DO Work Phone: [facility] [place] 10-31-2023 15:08-0400 Body weight 88 kg Mandeep Houser DO Work Phone: [facility] [place] 10-31-2023 15:08-0400 Diastolic blood pressure 80 mm[Hg] Mandeep Houser DO Work Phone: [facility] [place] 10-31-2023 15:08-0400 Heart rate 76 /min Mandeep Houser DO Work Phone: [facility] [place] 10-31-2023 15:08-0400 Respiratory rate 20 /min Mandeep Houser DO Work Phone: [facility] [place] 10-31-2023 15:08-0400 Systolic blood pressure 150 mm[Hg] Mandeep Houser DO Work Phone: [facility] [place] 10-15-2023 11:41-0400 Body mass index (BMI) [Ratio] 34.4 kg/m2 Rupali Nascimento [employer]ATIC [employer] LABORER.MEDICAL SCIENTIST Work Phone: [facility] [place] 10-15-2023 11:41-0400 Body weight 88.09 kg Rupali Nascimento [employer]ATIC LIFE LABORER.MEDICAL SCIENTIST Work Phone: [facility] [place] 10-15-2023 11:41-0400 Diastolic blood pressure 68 mm[Hg] Rupali Nascimento A[employer]ATIC LIFE LABORER.MEDICAL SCIENTIST Work Phone: [facility] [place] 10-15-2023 11:41-0400 Heart rate 68 /min Rupali Nascimento A[employer]ATIC LIFE LABORER.MEDICAL SCIENTIST Work Phone: [facility] [place] 10-15-2023 11:41-0400 Respiratory rate 14 /min Rupali Nascimento [employer]ATIC LIFE LABORER.MEDICAL SCIENTIST Work Phone: [facility] [place] 10-15-2023 11:41-0400 SaO2% (BldA) [Mass fraction] 94 % Rupali Nascimento [employer]ATIC LIFE LABORER.MEDICAL SCIENTIST Work Phone: [facility] [place] 10-15-2023 11:41-0400 Systolic blood pressure 130 mm[Hg] Rupali Nascimento [employer]ATIC LIFE LABORER.MEDICAL SCIENTIST Work Phone: [facility] [place] 10-01-2023 12:22-0400 Body mass index (BMI) [Ratio] 34.15 kg/m2 Alejandrina Yasir A[employer]ATIC LIFE LABORER.MEDICAL SCIENTIST Work Phone: [facility] [place] 10-01-2023 12:22-0400 Body temperature 97.11 [degF] Alejandrina Yasir A[employer]ATIC LIFE LABORER.MEDICAL SCIENTIST Work Phone: [facility] [place] 10-01-2023 12:22-0400 Body weight 87.45 kg Alejandrina Yasir A[employer]ATIC LIFE LABORER.MEDICAL SCIENTIST Work Phone: [facility] [place] 10-01-2023 12:22-0400 Diastolic blood pressure 84 mm[Hg] Alejandrina Yasir A[employer]ATIC LIFE LABORER.MEDICAL SCIENTIST Work Phone: [facility] [place] 10-01-2023 12:22-0400 Heart rate 80 /min Alejandrina Yasir A[employer]ATIC LIFE LABORER.MEDICAL SCIENTIST Work Phone: [facility] [place] 10-01-2023 12:22-0400 Respiratory rate 16 /min Alejandrina Yasir A[employer]ATIC LIFE LABORER.MEDICAL SCIENTIST Work Phone: [facility] [place] 10-01-2023 12:22-0400 SaO2% (BldA) [Mass fraction] 95 % Alejandrina Yasir A[employer]ATIC LIFE LABORER.MEDICAL SCIENTIST Work Phone: [facility] [place] 10-01-2023 12:22-0400 Systolic blood pressure 118 mm[Hg] Alejandrina Yasir A[employer]ATIC LIFE LABORER.MEDICAL SCIENTIST Work Phone: [facility] [place] 09-13-2023 11:04-0400 Body mass index (BMI) [Ratio] 34.12 kg/m2 Alejandrina Yasir A[employer]ATIC LIFE LABORER.MEDICAL SCIENTIST Work Phone: [facility] [place] 09-13-2023 11:04-0400 Body weight 87.36 kg Alejandrina Yasir A[employer]ATIC LIFE LABORER.MEDICAL SCIENTIST Work Phone: [facility] [place] 09-13-2023 11:04-0400 Diastolic blood pressure 80 mm[Hg] Alejandrina Yasir A[employer]ATIC LIFE LABORER.MEDICAL SCIENTIST Work Phone: [facility] [place] 09-13-2023 11:04-0400 Heart rate 73 /min Alejandrina Yasir A[employer]ATIC LIFE LABORER.MEDICAL SCIENTIST Work Phone: [facility] [place] 09-13-2023 11:04-0400 Respiratory rate 16 /min Alejandrina Yasir A[employer]ATIC LIFE LABORER.MEDICAL SCIENTIST Work Phone: [facility] [place] 09-13-2023 11:04-0400 SaO2% (BldA) [Mass fraction] 94 % Alejandrina Yasir A[employer]ATIC LIFE LABORER.MEDICAL SCIENTIST Work Phone: [facility] [place] 09-13-2023 11:04-0400 Systolic blood pressure 122 mm[Hg] Alejandrina Yasir A[employer]ATIC LIFE LABORER.MEDICAL SCIENTIST Work Phone: [facility] [place] 09-05-2023 10:51-0400 Body height 160 cm Thuy Aguirre APRN.MEDICAL SCIENTIST Work Phone: [facility] [place] 09-05-2023 10:51-0400 Body mass index (BMI) [Ratio] 34.05 kg/m2 Thuy Aguirre A[employer]ATIC LIFE LABORER.MEDICAL SCIENTIST Work Phone: [facility] [place] 09-05-2023 10:51-0400 Body weight 87.2 kg Thuy Aguirre AQUATIC LIFE LABORER.MEDICAL SCIENTIST Work Phone: [facility] [place] 09-05-2023 10:51-0400 Diastolic blood pressure 84 mm[Hg] Thuy Aguirre A[employer]ATIC LIFE LABORER.MEDICAL SCIENTIST Work Phone: [facility] [place] 09-05-2023 10:51-0400 Heart rate 84 /min Thuy Aguirre A[employer]ATIC LIFE LABORER.MEDICAL SCIENTIST Work Phone: [facility] [place] 09-05-2023 10:51-0400 SaO2% (BldA) [Mass fraction] 97 % Thuy Aguirre A[employer]ATIC LIFE LABORER.MEDICAL SCIENTIST Work Phone: [facility] [place] 09-05-2023 10:51-0400 Systolic blood pressure 128 mm[Hg] Thuy Aguirre A[employer]ATIC LIFE LABORER.MEDICAL SCIENTIST Work Phone: [facility] [place] 08-29-2023 15:37-0400 Body mass index (BMI) [Ratio] 33.6 kg/m2 [facility] 08-29-2023 15:17-0400 Body height 160.02 cm [facility] 08-29-2023 15:17-0400 Body weight 86.18 kg [facility] 08-29-2023 14:28-0400 Diastolic blood pressure 82 mm[Hg] [facility] 08-29-2023 14:28-0400 Heart rate 91 /min [facility] 08-29-2023 14:28-0400 SaO2% (BldA) [Mass fraction] 95 % [facility] 08-29-2023 14:28-0400 Systolic blood pressure 125 mm[Hg] [facility] 08-22-2023 10:27-0400 Body temperature 96.91 [degF] Alejandrina Harvey A[employer]ATIC LIFE LABORER.MEDICAL SCIENTIST Work Phone: [facility] [place] 08-22-2023 10:27-0400 Body weight 87 kg Alejandrina Waldenman A[employer]ATIC LIFE LABORER.MEDICAL SCIENTIST Work Phone: [facility] [place] 08-22-2023 10:27-0400 Diastolic blood pressure 84 mm[Hg] Alejandrina Waldenman A[employer]ATIC LIFE LABORER.MEDICAL SCIENTIST Work Phone: [facility] [place] 08-22-2023 10:27-0400 Heart rate 76 /min Alejandrina Waldenman A[employer]ATIC LIFE LABORER.MEDICAL SCIENTIST Work Phone: [facility] [place] 08-22-2023 10:27-0400 SaO2% (BldA) [Mass fraction] 95 % Alejandrina Waldenman AQUATIC LIFE LABORER.MEDICAL SCIENTIST Work Phone: [facility] [place] 08-22-2023 10:27-0400 Systolic blood pressure 122 mm[Hg] Alejandrina Waldenman AQUATIC LIFE LABORER.MEDICAL SCIENTIST Work Phone: [facility] [place] 08-07-2023 14:44-0400 Body height 160 cm Dilcia Bonilla MD Work Phone: [facility] [place] 08-07-2023 14:44-0400 Body weight 86.59 kg Dilcia Bonilla MD Work Phone: [facility] [place] 08-07-2023 14:44-0400 Diastolic blood pressure 82 mm[Hg] Dilcia Bonilla MD Work Phone: [facility] [place] 08-07-2023 14:44-0400 Heart rate 91 /min Dilcia Bonilla MD Work Phone: [facility] [place] 08-07-2023 14:44-0400 SaO2% (BldA) [Mass fraction] 95 % Dilcia Bonilla MD Work Phone: [facility] [place] 08-07-2023 14:44-0400 Systolic blood pressure 125 mm[Hg] Dilcia Bonilla MD Work Phone: [facility] [place] 07-24-2023 13:42-0400 Body temperature 97 [degF] Mandeep Houser DO Work Phone: [facility] [place] 07-24-2023 13:42-0400 Body weight 87.54 kg Mandeep Houser DO Work Phone: [facility] [place] 07-24-2023 13:42-0400 Diastolic blood pressure 80 mm[Hg] Mandeep Houser DO Work Phone: [facility] [place] 07-24-2023 13:42-0400 Heart rate 80 /min Mandeep Houser DO Work Phone: [facility] [place] 07-24-2023 13:42-0400 Respiratory rate 20 /min Mandeep Houser DO Work Phone: [facility] [place] 07-24-2023 13:42-0400 Systolic blood pressure 120 mm[Hg] Mandeep Houser DO Work Phone: [facility] [place] 10-14-2022 14:12-0400 Body temperature 99.81 [degF] Shanell Older A[employer]ATIC LIFE LABORER.MEDICAL SCIENTIST Work Phone: [facility] [place] 10-14-2022 14:12-0400 Body weight 88.91 kg Shanell Older AQUATIC LIFE LABORER.MEDICAL SCIENTIST Work Phone: [facility] [place] 10-14-2022 14:12-0400 Diastolic blood pressure 78 mm[Hg] Shanell Older AQUATIC LIFE LABORER.MEDICAL SCIENTIST Work Phone: [facility] [place] 10-14-2022 14:12-0400 Heart rate 87 /min Shanell Older AQUATIC LIFE LABORER.MEDICAL SCIENTIST Work Phone: [facility] [place] 10-14-2022 14:12-0400 Respiratory rate 22 /min Shanell Older AQUATIC LIFE LABORER.MEDICAL SCIENTIST Work Phone: [facility] [place] 10-14-2022 14:12-0400 SaO2% (BldA) [Mass fraction] 94 % Shanell Older AQUATIC LIFE LABORER.MEDICAL SCIENTIST Work Phone: [facility] [place] 10-14-2022 14:12-0400 Systolic blood pressure 104 mm[Hg] Shanell Older AQUATIC LIFE LABORER.MEDICAL SCIENTIST Work Phone: [facility] [place] 08-14-2022 11:20-0400 Body weight 87.09 kg Santo Oneill MD Work Phone: [facility] [place] 08-14-2022 11:20-0400 Diastolic blood pressure 70 mm[Hg] Santo Oneill MD Work Phone: [facility] [place] 08-14-2022 11:20-0400 Heart rate 87 /min Santo Oneill MD Work Phone: [facility] [place] 08-14-2022 11:20-0400 SaO2% (BldA) [Mass fraction] 94 % Santo Oneill MD Work Phone: [facility] [place] 08-14-2022 11:20-0400 Systolic blood pressure 110 mm[Hg] Santo Oneill MD Work Phone: [facility] [place] 07-21-2022 10:44-0500 Body weight 89.54 kg Alejandrina Yasir AQUATIC LIFE LABORER.MEDICAL SCIENTIST Work Phone: [facility] [place] 07-21-2022 10:44-0500 Diastolic blood pressure 78 mm[Hg] Alejandrina Yasir AQUATIC LIFE LABORER.MEDICAL SCIENTIST Work Phone: [facility] [place] 07-21-2022 10:44-0500 Heart rate 64 /min Alejandrina Yasri AQUATIC LIFE LABORER.MEDICAL SCIENTIST Work Phone: [facility] [place] 07-21-2022 10:44-0500 SaO2% (BldA) [Mass fraction] 93 % Alejandrina Yasir AQUATIC LIFE LABORER.MEDICAL SCIENTIST Work Phone: [facility] [place] 07-21-2022 10:44-0500 Systolic blood pressure 130 mm[Hg] Alejandrina Yasir AQUATIC LIFE LABORER.MEDICAL SCIENTIST Work Phone: [facility] [place] 02-13-2022 11:07-0400 Body height 162.6 cm Santo Oneill MD Work Phone: [facility] [place] 02-13-2022 11:07-0400 Body weight 89.09 kg Santo Oneill MD Work Phone: [facility] [place] 02-13-2022 11:07-0400 Diastolic blood pressure 84 mm[Hg] Santo Oneill MD Work Phone: [facility] [place] 02-13-2022 11:07-0400 Heart rate 80 /min Santo Oneill MD Work Phone: [facility] [place] 02-13-2022 11:07-0400 Systolic blood pressure 136 mm[Hg] Santo Oneill MD Work Phone: [facility] [place] 01-20-2022 10:46-0400 Body weight 87.91 kg Alejandrina Yasir AQUATIC LIFE LABORER.MEDICAL SCIENTIST Work Phone: [facility] [place] 01-20-2022 10:46-0400 Diastolic blood pressure 78 mm[Hg] Alejandrina Yasir AQUATIC LIFE LABORER.MEDICAL SCIENTIST Work Phone: [facility] [place] 01-20-2022 10:46-0400 Heart rate 79 /min Alejandrina Yasir AQUATIC LIFE LABORER.MEDICAL SCIENTIST Work Phone: [facility] [place] 01-20-2022 10:46-0400 SaO2% (BldA) [Mass fraction] 95 % Alejandrina Yasir AQUATIC LIFE LABORER.MEDICAL SCIENTIST Work Phone: [facility] [place] 01-20-2022 10:46-0400 Systolic blood pressure 124 mm[Hg] Alejandrina Yasir AQUATIC LIFE LABORER.MEDICAL SCIENTIST Work Phone: [facility] [place] 12-19-2021 09:10-0400 Body temperature 97.2 [degF] Sincere Winterhaven PA-C Work Phone: [facility] [place] 12-19-2021 09:10-0400 Diastolic blood pressure 70 mm[Hg] Sincere Maddie PA-C Work Phone: [facility] [place] 12-19-2021 09:10-0400 Heart rate 76 /min Sincere Maddie PA-C Work Phone: [facility] [place] 12-19-2021 09:10-0400 SaO2% (BldA) [Mass fraction] 92 % Sincere Maddie PA-C Work Phone: [facility] [place] 12-19-2021 09:10-0400 Systolic blood pressure 128 mm[Hg] Sincere Winterhaven PA-C Work Phone: [facility] [place] 12-05-2021 10:53-0400 Body temperature 98.2 [degF] Wes Marshall MD Work Phone: [facility] [place] 12-05-2021 10:53-0400 Heart rate 60 /min Wes Marshall MD Work Phone: [facility] [place] 12-05-2021 10:53-0400 Respiratory rate 8 /min Wes Marshall MD Work Phone: [facility] [place] 12-05-2021 10:53-0400 SaO2% (BldA) [Mass fraction] 98 % Wes Marshall MD Work Phone: [facility] [place] 12-05-2021 10:45-0400 Diastolic blood pressure 70 mm[Hg] Wes Marshall MD Work Phone: [facility] [place] 12-05-2021 10:45-0400 Systolic blood pressure 135 mm[Hg] Wes Marshall MD Work Phone: [facility] [place] 11-02-2021 13:29-0400 Body height 162.6 cm Sincere Maddie PA-C Work Phone: [facility] [place] 11-02-2021 13:29-0400 Body temperature 97.3 [degF] Sincere Maddie PA-C Work Phone: [facility] [place] 11-02-2021 13:29-0400 Body weight 86.64 kg Sincere Winterhaven PA-C Work Phone: [facility] [place] 11-02-2021 13:29-0400 Diastolic blood pressure 62 mm[Hg] Sincere Maddie PA-C Work Phone: [facility] [place] 11-02-2021 13:29-0400 Heart rate 80 /min Sincere Winterhaven PA-C Work Phone: [facility] [place] 11-02-2021 13:29-0400 SaO2% (BldA) [Mass fraction] 94 % Sincere Winterhaven PA-C Work Phone: [facility] [place] 11-02-2021 13:29-0400 Systolic blood pressure 118 mm[Hg] Sincere Perkins PA-C Work Phone: [facility] [place] 10-19-2021 11:38-0400 Body weight 86.73 kg Alejandrina Yasir AQUATIC LIFE LABORER.MEDICAL SCIENTIST Work Phone: [facility] [place] 10-19-2021 11:38-0400 Diastolic blood pressure 92 mm[Hg] Alejandrina Yasir AQUATIC LIFE LABORER.MEDICAL SCIENTIST Work Phone: [facility] [place] 10-19-2021 11:38-0400 Heart rate 79 /min Alejandrina Yasir AQUATIC LIFE LABORER.MEDICAL SCIENTIST Work Phone: [facility] [place] 10-19-2021 11:38-0400 Respiratory rate 16 /min Alejandrina Yasir AQUATIC LIFE LABORER.MEDICAL SCIENTIST Work Phone: [facility] [place] 10-19-2021 11:38-0400 SaO2% (BldA) [Mass fraction] 96 % Alejandrina Yasir AQUATIC LIFE LABORER.MEDICAL SCIENTIST Work Phone: [facility] [place] 10-19-2021 11:38-0400 Systolic blood pressure 132 mm[Hg] Alejandrina Yasir AQUATIC LIFE LABORER.MEDICAL SCIENTIST Work Phone: [facility] [place] 09-01-2021 15:38-0400 Body height 160 cm Alejandrina Yasir AQUATIC LIFE LABORER.MEDICAL SCIENTIST Work Phone: [facility] [place] 09-01-2021 15:38-0400 Body weight 88.45 kg Alejandrina Yasir AQUATIC LIFE LABORER.MEDICAL SCIENTIST Work Phone: [facility] [place] 09-01-2021 15:38-0400 Diastolic blood pressure 90 mm[Hg] Alejandrina Yasir AQUATIC LIFE LABORER.MEDICAL SCIENTIST Work Phone: [facility] [place] 09-01-2021 15:38-0400 Heart rate 69 /min Alejandrina Yasir AQUATIC LIFE LABORER.MEDICAL SCIENTIST Work Phone: [facility] [place] 09-01-2021 15:38-0400 SaO2% (BldA) [Mass fraction] 96 % Alejandrina Yasir AQUATIC LIFE LABORER.MEDICAL SCIENTIST Work Phone: [facility] [place] 09-01-2021 15:38-0400 Systolic blood pressure 146 mm[Hg] Alejandrina Harvey APRN.MEDICAL SCIENTIST Work Phone: [facility] [place] 02-24-2020 12:13-0400 BMI (Body Mass Index) 34.9 kg/m2 Mane Solis [facility] center[facility] GroupSM[facility] Elvie Work Phone: 02-24-2020 12:13-0400 Body weight 89.36 kg Mane Solis [facility] [place] Work Phone: 02-24-2020 12:13-0400 BP Diastolic 80 mm[Hg] Mane Solis [facility] Elvie Work Phone: 02-24-2020 12:13-0400 BP Systolic 160 mm[Hg] [facility]ane [facility]is [facility] Work Phone: 02-24-2020 12:13-0400 BSA (Body Surface Area) 1.92 m2 Mane Solis [facility]sk[facility] instituteSM[facility] Work Phone: 02-04-2020 16:16-0400 BMI (Body Mass Index) 35.43 kg/m2 Rafael Frank III [facility]sk[facility] instituteN[facility] Jareth Work Phone: 02-04-2020 16:16-0400 Body weight 90.72 kg Rafael Frank III [facility] instituteN[facility] Jareth Work Phone: 02-04-2020 16:16-0400 BP Diastolic 78 mm[Hg] Rafael Frank III [facility] Jareth Work Phone: 02-04-2020 16:16-0400 BP Systolic 154 mm[Hg] [facility] Work Phone: 02-04-2020 16:16-0400 BSA (Body Surface Area) 1.93 m2 Rafael Frank III [facility] institute[facility] Work Phone: 02-04-2020 16:16-0400 Height 160.02 [...] BP Diastolic 92 mm[Hg] Rafael Frank III [facility] Work Phone: 01-28-2020 15:21-0400 BP Systolic 132 mm[Hg] Rafael Frank III [facility] [place] Work Phone: 01-28-2020 15:21-0400 BSA (Body Surface Area) 1.93 m2 Rafael Templeton Work Phone: 01-28-2020 15:21-0400 Height 160.02 cm Rafael Frank III [facility] [place] Work Phone: 01-22-2020 12:56-0400 BMI (Body Mass Index) 35.04 kg/m2 Rafael Templeton Work Phone: 01-22-2020 12:56-0400 Body weight 89.72 kg Rafael Frank III [facility] [place] Work Phone: 01-22-2020 12:56-0400 BP Diastolic 84 mm[Hg] Rafael Frank III [facility] [employer] Work Phone: 01-22-2020 12:56-0400 BP Systolic 118 mm[Hg] Rafael Frank III [facility] Work Phone: 01-22-2020 12:56-0400 BSA (Body Surface Area) 1.92 m2 Rafael Templeton Work Phone: 01-22-2020 12:56-0400 Height 160.02 cm Rafael Templeton Work Phone: 01-22-2020 12:56-0400 Pulse (Heart Rate) 75 /min Rafael MendenhallWI TISHA [place] Work Phone: 01-22-2020 12:56-0400 Respiratory Rate 16 /min Rafael Templeton Work Phone: Encounters Encounter Date Encounter Type Care Provider Facility Start: 11-13-2024 End: 11-13-2024 Emergency department patient visit Dr. 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; Left bundle branch block; Cardiac resynchronization therapy defibrillator (DISTRICT FIRE MANAGEMENT OFFICER-D) in place Start: 11-03-2024 End: 11-03-2024 Patient encounter procedure Holter/Event Monitor Edenilson Work Phone: Cardiology Comment on above: Cardiac resynchroniz ation therapy defibrillator (DISTRICT FIRE MANAGEMENT OFFICER-D) in place (Primary Dx) Cardiac resynchroniz ation therapy defibrillator (DISTRICT FIRE MANAGEMENT OFFICER-D) in place (Primary Dx); Chronic HFrEF (heart failure with reduced ejection fraction) ([facility]); Medication management Start: 11-03-2024 End: 11-03-2024 ambulatory MANDEEP ALFARORISON Facility:[facility] Start: 11-03-2024 End: 11-03-2024 ambulatory MANDEEP HOUSER Facility:[facility] Start: 10-21-2024 End: 10-21-2024 Patient encounter procedure Mandeep Houesr DO Work Phone: [facility] Comment on above: Chronic bilateral th oracic back pain (Primary Dx); Somatic dysfunction of spine, lumbar; Somatic dysfunction of rib; Somatic dysfunction of head region; Somatic dysfunction of spine, cervical; Somatic dysfunction of spine, thoracic Start: 10-21-2024 End: 10-21-2024 ambulatory MANDEEP ALFARORISON Facility:[facility] Start: 09-30-2024 End: 09-30-2024 ambulatory MANDEEP ALFARORISON Facility:[facility] Start: 09-23-2024 End: 09-23-2024 ambulatory MANDEEP ALFARORISON Facility:[facility] Start: 09-15-2024 End: 09-15-2024 [facility] [place] Start: 09-15-2024 End: 09-15-2024 Patient encounter procedure Dorinda Young [facility] [place] Comment on above: Population Health Na vigation Outreach ([facility], High Risk /) Start: 08-27-2024 End: 08-27-2024 Telephone encounter Dilcia Bonilla MD Work Phone: Cardiology Start: 08-25-2024 End: 08-25-2024 ambulatory MANDEEP HOUSER Facility:[facility] Start: 08-25-2024 End: 08-25-2024 Patient encounter procedure [...] Start: 08-15-2024 End: 08-15-2024 ambulatory MANDEEP ALFARORISON Facility:[facility] Start: 08-04-2024 End: 08-04-2024 ambulatory MANDEEP HOUSER Facility:[facility] Start: 08-04-2024 End: 08-04-2024 Patient encounter procedure Mandeep Houser DO Work Phone: [facility] [place] Comment on above: Chronic bilateral th oracic back pain (Primary Dx); Somatic dysfunction of rib; Somatic dysfunction of spine, thoracic; Somatic dysfunction of spine, cervical; Somatic dysfunction of head region; Somatic dysfunction of pelvic region Start: 07-21-2024 End: 07-21-2024 ambulatory MANDEEP ALFARORISON Facility:[facility] Start: 07-21-2024 End: 07-21-2024 Patient encounter procedure Mandeep Houser DO Work Phone: [facility] Comment on above: Acute cough (Primary Dx); Vitamin B12 deficiency; Fatigue, unspecified type; Nausea; Hypothyroidism, acquired; Chronic 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); Vitamin D deficiency Start: 07-08-2024 End: 07-08-2024 Subsequent hospital visit by physician Joe [facility] Work Phone: Radiology Comment on above: Acute cough [R05.1] Start: 07-08-2024 End: 07-08-2024 ambulatory MANDEEP HOUSER Facility:[facility] Start: 07-08-2024 End: 07-08-2024 Patient encounter procedure Mandeep Houser DO Work Phone: [facility] Comment on above: Vitamin B12 deficien cy (Primary Dx); Fatigue, unspecified type; Lightheadedness; Acute cough; Chronic 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); Nausea; Hypothyroidism, acquired; Anemia, unspecified type; Vitamin D deficiency; Nonischemic cardiomyopathy (HCC) Start: 07-01-2024 End: 08-01-2024 Telephone encounter Mandeep Elsi Houser DO Work Phone: [facility] Start: 06-20-2024 End: 06-20-2024 ambulatory MANDEEP ALFARORISON Facility:[facility] Start: 06-20-2024 End: 06-20-2024 Patient encounter procedure Mandeep Alfarorison DO Work Phone: [facility] Comment on above: Chronic bilateral th oracic back pain (Primary Dx); Somatic dysfunction of rib; Somatic dysfunction of head region; Somatic dysfunction of spine, thoracic; Somatic dysfunction of spine, lumbar; Somatic dysfunction of spine, cervical; Somatic dysfunction of pelvic region Start: 05-30-2024 End: 05-30-2024 Patient encounter procedure Mandeep Alfarorison DO Work Phone: [facility] [place] Comment on above: Chronic bilateral th oracic back pain (Primary Dx); Somatic dysfunction of rib; Somatic dysfunction of spine, lumbar; Somatic dysfunction of spine, thoracic; Somatic dysfunction of spine, cervical; Somatic dysfunction of pelvic region; Somatic dysfunction of head region Start: 05-30-2024 End: 05-30-2024 ambulatory MANDEEP HOUSER Facility:[facility] Start: 05-12-2024 End: 05-12-2024 Patient encounter procedure Mandeep Elsi AlfaroHouser DO Work Phone: [facility] Black Comment on above: Chronic bilateral th oracic back pain (Primary Dx); Somatic dysfunction of rib; Somatic dysfunction of spine, thoracic; Somatic dysfunction of spine, cervical; Somatic dysfunction of head region; Somatic dysfunction of spine, lumbar Start: 05-12-2024 End: 05-12-2024 ambulatory MANDEEP HOUSER Facility:[facility] Start: 04-22-2024 End: 04-22-2024 ambulatory MANDEEP HOUSER Facility:[facility] Start: 04-22-2024 End: 04-22-2024 Patient encounter procedure Mandeep Elsi AlfaroHouser DO Work Phone: [facility] Black Comment on above: Suprapubic pain (Richi maritza Dx); Somatic dysfunction of head region; Chronic bilateral thoracic back pain; Somatic dysfunction of rib; Somatic dysfunction of spine, cervical; Somatic dysfunction of spine, thoracic; Somatic dysfunction of pelvic region; Somatic dysfunction of spine, lumbar Start: 04-22-2024 End: 04-22-2024 ambulatory MANDEEP HOUSER Facility:[facility] Start: 04-08-2024 End: 04-08-2024 Refill Mandeep L Houser DO Work Phone: [facility] Comment on above: Refill Request Start: 03-27-2024 End: 03-27-2024 Emergency department patient visit Mandeep Houser Facility:[facility] Start: 03-21-2024 End: 03-24-2024 Telephone encounter Mandeep Houser DO Work Phone: [facility] Comment on above: Medication Problem Start: 03-18-2024 End: 03-18-2024 ambulatory MANDEEP HOUSER Facility:[facility] Start: 03-05-2024 End: 03-06-2024 Telephone encounter Mandeep Houser DO Work Phone: [facility] Start: 02-12-2024 End: 02-12-2024 Patient encounter procedure Mandeep Houser DO Work Phone: [facility] [place] Comment on above: Hypothyroidism, acqu ired (Primary Dx); Chronic bilateral thoracic back pain; Somatic dysfunction of rib; Somatic dysfunction of spine, cervical; Somatic dysfunction of spine, thoracic; Somatic dysfunction of spine, lumbar; Somatic dysfunction of head region Start: 02-12-2024 End: 02-12-2024 ambulatory MANDEEP HOUSER Facility:[facility] Start: 02-07-2024 End: 02-07-2024 [facility] Start: 02-07-2024 End: 02-07-2024 Patient encounter procedure Angel Castro DO Work Phone: Cardiology Comment on above: Nonischemic cardiomy opathy (HCC) (Primary Dx) Start: 01-29-2024 End: 01-29-2024 ambulatory MANDEEP HOUSER Facility:[facility] Start: 01-29-2024 End: 01-29-2024 Patient encounter procedure Mandeep Houser DO Work Phone: [facility] Comment on above: Hypothyroidism, acqu ired (Primary Dx); Chronic bilateral thoracic back pain; Somatic dysfunction of spine, thoracic; Somatic dysfunction of spine, cervical; Somatic dysfunction of rib; Somatic dysfunction of spine, lumbar; Somatic dysfunction of head region Start: 01-15-2024 End: 01-15-2024 ambulatory MANDEEP HOUSER Facility:[facility] Start: 01-15-2024 End: 01-15-2024 Office outpatient visit 40 minutes Pili Wells MD Work Phone: Cardiology Comment on above: Chronic systolic con gestive heart failure (HCC) (Primary Dx); Nonischemic cardiomyopathy (HCC); Left bundle branch block; 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 Start: 01-04-2024 End: 01-04-2024 Patient encounter procedure Mandeep Houser DO Work Phone: [facility] Comment on above: Chronic neck pain (P rimary Dx); Chronic bilateral thoracic back pain; Somatic dysfunction of spine, thoracic; Somatic dysfunction of rib; Somatic dysfunction of spine, cervical; Somatic dysfunction of pelvic region; Somatic dysfunction of head region; Somatic dysfunction of spine, lumbar Start: 01-04-2024 End: 01-04-2024 ambulatory [facility] Facility:[facility] Start: 12-23-2023 ambulatory [facility] Facility:[facility] Start: 12-12-2023 End: 12-12-2023 [facility]ulatory [facility] Start: 12-12-2023 End: 12-12-2023 Patient encounter procedure Mandeep Houser DO Work Phone: [facility] Comment on above: Chronic bilateral th oracic back pain (Primary Dx); Somatic dysfunction of head region; Somatic dysfunction of spine, cervical; Somatic dysfunction of rib; Somatic dysfunction of spine, thoracic; Somatic dysfunction of pelvic region Start: 12-12-2023 End: 12-12-2023 ambulatory MANDEEP HOUSER Facility:[facility] Start: 12-06-2023 Telephone encounter Pili ricardo MD Work Phone: Cardiology Start: 12-05-2023 End: 12-05-2023 Subsequent hospital visit by physician [facility] Work Phone: Cardiology Lab Comment on above: Chronic systolic con gestive heart failure (HCC) [I50.22] Start: 11-28-2023 Telephone encounter Mandeep ochoa DO Work Phone: NOC Comment on above: Transition Of Care Start: 11-27-2023 End: 11-27-2023 ambulatory MANDEEP ELDERON Facility:[facility] Start: 11-23-2023 Telephone encounter Rojas Prakash RN NOC Comment on above: Transition Of Care Start: 11-20-2023 Telephone encounter Misty Ascencio RN Cardiology Comment on above: Account Development Specialist - O ther (CHF) Start: 11-15-2023 End: 11-18-2023 ambulatory [facility] Facility:[facility] Start: 11-12-2023 End: 12-12-2023 ambulatory [facility] Facility:[facility] Start: 11-07-2023 End: 11-07-2023 Patient encounter procedure Mandeep Houser DO Work Phone: [facility] Comment on above: Acute midline low ba ck pain without sciatica (Primary Dx) Start: 11-07-2023 Telephone encounter Mandeep ochoa DO Work Phone: [facility] Comment on above: Appointment; OMT Start: 11-06-2023 Telephone encounter Mandeep ochoa DO Work Phone: [facility] Comment on above: Results (CT Brain) Start: 11-05-2023 End: 11-11-2023 ambulatory [facility] Facility:[facility] Start: 11-01-2023 ambulatory MANDEEP Calzada HOUSER Facil ity:[facility] Start: 11-01-2023 End: 11-01-2023 Subsequent hospital visit by physician [facility] Work Phone: [facility] Comment on above: Word finding difficu lty [R47.89] Start: 11-01-2023 End: 11-01-2023 Patient encounter procedure Mercedes Vera APRN.MEDICAL SCIENTIST Work Phone: Cardiology Comment on above: Presence of cardiac resynchronization therapy defibrillator (DISTRICT FIRE MANAGEMENT OFFICER-D) (Primary Dx); Non-ischemic cardiomyopathy (HCC); LBBB (left bundle branch block) Start: 10-31-2023 End: 10-31-2023 Patient encounter procedure Mandeep Houser DO Work Phone: [facility] Comment on above: Hypothyroidism, acqu [...] Start: 10-17-2023 Telephone encounter Rupali Zak chandra AQUATIC LIFE LABORER.MEDICAL SCIENTIST Work Phone: [facility] Comment on above: Results Start: 10-15-2023 End: 10-15-2023 Patient encounter procedure Rupali Nascimento MELI.MEDICAL SCIENTIST Work Phone: [facility] Comment on above: Localized swelling o f left foot (Primary Dx); Foot pain, left; 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 Start: 10-11-2023 End: 10-11-2023 Refill Mandeep Houser DO Work Phone: [facility] Comment on above: Refill Request Left Great Toe Pain Start: 10-10-2023 End: 10-12-2023 ambulatory [facility] Facility:[facility] Start: 10-02-2023 End: 10-02-2023 Office outpatient visit 15 minutes Pili Wells MD Work Phone: Cardiology Comment on above: Chronic systolic con gestive heart failure (HCC) (Primary Dx); Left bundle branch block; Nonischemic cardiomyopathy (HCC); Hypertension with heart disease Start: 10-01-2023 End: 10-01-2023 Patient encounter procedure Alejandrina Harvey APRN.MEDICAL SCIENTIST Work Phone: [facility] Comment on above: Acute non-recurrent pansinusitis (Primary Dx) Start: 09-30-2023 Telephone encounter Oliverio Del Cid Work Phone: Podiatry Comment on above: Results Start: 09-25-2023 Telephone encounter Thuy Aguirre APRN.MEDICAL SCIENTIST Work Phone: [place] Provider Adult Comment on above: Results (FLP) Start: 09-24-2023 End: 09-24-2023 Subsequent hospital visit by physician Xr [facility] [place] Work Phone: Radiology Comment on above: Repetitive stress in jury [X50.3XXA] Start: 09-24-2023 End: 09-24-2023 Patient encounter procedure Oliverio Mata Work Phone: Podiatry Comment on above: Repetitive stress in jury (Primary Dx); Venous insufficiency Start: 09-19-2023 Follow-up encounter Dilcia Bonilla MD Work Phone: [facility] Start: 09-19-2023 Patient encounter procedure Dilcia Bonilla MD Work Phone: [facility] Start: 09-17-2023 Telephone encounter Angel Castro DO Work Phone: Cardiology Comment on above: Patient Question (inga dennison) Results Patient Update Start: 09-13-2023 End: 09-13-2023 Subsequent hospital visit by physician Xr [facility] Work Phone: Radiology Comment on above: Foot pain, left [M79 .672] Start: 09-13-2023 End: 09-13-2023 Patient encounter procedure Alejandrina Harvey APRN.MEDICAL SCIENTIST Work Phone: [facility] Comment on above: Foot pain, left (Richi maritza Dx); Localized swelling of left foot Start: 09-10-2023 End: 09-11-2023 ambulatory [facility] Work Phone: Start: 09-10-2023 End: 09-11-2023 Discharged [facility] Work Phone: Start: 09-06-2023 Encounter for meera l adult medical examination without abnormal findings [facility] Start: 09-05-2023 End: 09-05-2023 Patient encounter procedure Thuy Aguirre APRN.MEDICAL SCIENTIST Work Phone: Cardiology Comment on above: Chronic systolic con gestive heart failure (HCC) (Primary Dx); Nonischemic cardiomyopathy (HCC); Mixed hyperlipidemia; LBBB (left bundle branch block); Presence of cardiac resynchronization therapy defibrillator (DISTRICT FIRE MANAGEMENT OFFICER-D); Primary hypertension; 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; Valvular heart disease Start: 09-03-2023 Registered Rec[facility]ring [facility] Work Phone: Start: 08-29-2023 End: 08-29-2023 ambulatory [facility] Work Phone: Start: 08-29-2023 End: 08-29-2023 Patient encounter procedure [facility] Work Phone: Start: 08-29-2023 End: 08-29-2023 ambulatory [facility] Facility:[facility] Start: 08-27-2023 Telephone encounter Alejandrina Johnson APRN.MEDICAL SCIENTIST Work Phone: [facility] Comment on above: Patient Question; Inga moralesnt Update Start: 08-23-2023 Telephone encounter Pili ricardo MD Work Phone: Cardiology Start: 08-22-2023 End: 08-22-2023 Patient encounter procedure Alejandrina Harvey AQUATIC LIFE LABORER.MEDICAL SCIENTIST Work Phone: [facility] Comment on above: Vagina, candidiasis (Primary Dx); Burning with urination; 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; Acute cough; Laryngopharyngeal reflux (LPR) Start: 08-07-2023 Follow-up encounter Dilcia Bonilla MD Work Phone: [facility] Start: 08-07-2023 End: 08-07-2023 Patient encounter procedure Dilcia Bonilla MD Work Phone: [facility] Comment on above: LBBB (left bundle br anch block) (Primary Dx); Presence of cardiac resynchronization therapy defibrillator (DISTRICT FIRE MANAGEMENT OFFICER-D); Acute on chronic systolic CHF (congestive heart failure) (HCC) Start: 08-06-2023 Telephone encounter Pili ricardo MD Work Phone: Cardiology Start: 07-26-2023 Telephone encounter Dilcia Bonilla MD Work Phone: Cardiology Comment on above: Patient Update Start: 07-25-2023 Telephone encounter Mandeep ochoa DO Work Phone: Family [facility] Comment on above: Results Refill Request Start: 07-24-2023 End: 07-24-2023 Patient encounter procedure Mandeep Houser DO Work Phone: [facility] Comment on above: Chronic diastolic co ngestive heart failure (HCC) (Primary Dx); Hypothyroidism, acquired; Vitamin D deficiency; Fatigue, unspecified type; Acute hypoxic respiratory failure (HCC); Chronic bronchitis, unspecified chronic bronchitis type (HCC); Atrial fibrillation, unspecified type (HCC); SVT (supraventricular tachycardia) (HCC); Homozygous Factor V Leiden mutation (HCC) Start: 07-20-2023 ambulatory Fitz ramirez RN Work Phone: [facility] Start: 07-20-2023 Telephone encounter Mandeep Millard birdieanh DO Work Phone: NOC Comment on above: Follow Up (All Clear ) Transition Of Care ( TCM Initial [facility] Discharge 07/18/23) Start: 07-17-2023 Telephone encounter Morenita Griffin res, APRN.CNP Work Phone: [facility] Adult Comment on above: Appointment Start: 07-13-2023 End: 07-18-2023 Evaluation and management of inpatient MANDEEP HOUSER Facility:[facility] Start: 07-13-2023 Telephone encounter Rahul messina MD Work Phone: [facility] Provider Adult Comment on above: Hospital To Hospital Start: 07-10-2023 End: 07-13-2023 Evaluation and management of inpatient REMINGTON CAI Facility:[facility] Start: 06-12-2023 End: 06-12-2023 ambulatory FLACA GREENFIELD Facility:[facility] Start: 05-17-2023 End: 05-17-2023 Subsequent hospital visit by physician Joe [facility] Work Phone: Radiology Comment on above: Chronic cough [R05.3 ] Start: 04-26-2023 Telephone encounter Mandeep ochoa DO Work Phone: [facility] [place] Comment on above: Results Start: 04-17-2023 Telephone encounter Mandeep ochoa DO Work Phone: [facility] [place] Start: 04-09-2023 End: 04-09-2023 Patient encounter procedure Santo Oneill MD Work Phone: Cardiology Comment on above: Primary hypertension ; Chronic diastolic congestive heart failure (HCC) Start: 03-01-2023 Telephone encounter Mandeep ochoa DO Work Phone: Family [facility] [place] Comment on above: Results Start: 01-09-2023 End: 01-09-2023 Refill Santo Oneill MD Work Phone: Cardiology Comment on above: Refill Request Hypothyroidism, unsp ecified type (Primary Dx); Somatic dysfunction of spine, cervical; Somatic dysfunction of rib; Somatic dysfunction of head region; Chronic bilateral thoracic back pain; Chronic neck pain; Neck fullness Start: 12-22-2022 Telephone encounter Mandeep ochoa DO Work Phone: [facility] [place] Comment on above: Results Start: 12-19-2022 Telephone encounter Mandeep ochoa DO Work Phone: Family [facility] [place] Comment on above: Results Start: 12-14-2022 End: 12-14-2022 Subsequent hospital visit by physician Joe [facility] [place] Work Phone: Radiology Comment on above: SOB (shortness of br eath) [R06.02] Start: 10-24-2022 Telephone encounter Oliverio Cross gretadiane Work Phone: Podiatry Comment on above: Orders Start: 10-15-2022 Telephone encounter Estelita hess AQUATIC LIFE LABORER.MEDICAL SCIENTIST Work Phone: [facility] Comment on above: Results Start: 10-14-2022 End: 10-14-2022 Patient encounter procedure Shanellraghav Cox AQUATIC LIFE LABORER.MEDICAL SCIENTIST Work Phone: [facility] Comment on above: Acute cough (Primary Dx); Sore throat Start: 10-10-2022 End: 10-10-2022 Patient encounter procedure Mandeep Eldervalerie MENDOZA Work Phone: Family Medicine [place] Comment on above: Chronic bilateral th oracic [...] hospital visit by physician [facility] (I-Stat) Work Phone: Cat Scan Comment [...] Mixed hyperlipidemia Start: 08-03-2022 [facility] Start: 07-26-2022 Telephone encounter Alejandrina Johnson APRN.MEDICAL SCIENTIST Work Phone: Family Medicine [place] Comment on above: Results Start: 07-25-2022 End: 07-25-2022 Subsequent hospital visit by physician Bone Density [facility] Work Phone: Radiology Comment on above: Screening for osteop orosis [Z13.820] Start: 07-21-2022 End: 07-21-2022 Patient encounter procedure Alejandrina Harvey APRN.MEDICAL SCIENTIST Work Phone: [facility] Comment on above: Hypothyroidism, unsp ecified type (Primary Dx); Primary hypertension; Mixed hyperlipidemia; Vitamin D deficiency; Asymptomatic menopause; Encounter for vitamin deficiency screening; Screening for diabetes mellitus; Elevated glucose; Encounter for immunization; Screening for osteoporosis; Encounter for screening for osteoporosis Start: 07-18-2022 End: 07-18-2022 Patient encounter procedure Mandeep Houser DO Work Phone: [facility] Comment on above: Chronic right-sided thoracic back pain (Primary Dx); Somatic dysfunction of spine, cervical; Somatic dysfunction of spine, thoracic; Somatic dysfunction of rib; Rib pain on right side Start: 07-03-2022 End: 07-03-2022 Patient encounter procedure Mandeep Houser DO Work Phone: [facility] Comment on above: Chronic bilateral th oracic back pain (Primary Dx); Somatic dysfunction of rib; Somatic dysfunction of spine, thoracic; Somatic dysfunction of spine, cervical; Rib pain on right side; Somatic dysfunction of head region Start: 05-24-2022 Telephone encounter Mandeep ochoa DO Work Phone: [facility] [place] Start: 05-22-2022 End: 05-22-2022 Patient encounter procedure Mandeep Houser DO Work Phone: [facility] [place] Comment on above: Dysuria (Primary Dx) ; Urticaria; Food allergy; Allergic urticaria; Somatic dysfunction of spine, thoracic; Somatic dysfunction of rib; Somatic dysfunction of spine, cervical; Rib pain on right side; Somatic dysfunction of head region Start: 05-16-2022 Refill Santo Oneill MD Work Phone: Cardiology Comment on above: Refill Request Start: 05-03-2022 Telephone encounter Mandeep ochoa DO Work Phone: [address] [place] [address] Comment on above: Patient Question Start: 05-03-2022 End: 05-03-2022 Patient encounter procedure Mandeep Houser DO Work Phone: [facility] Comment on above: Rib pain on right si de (Primary Dx); Somatic dysfunction of spine, cervical; Somatic dysfunction of rib; Somatic dysfunction of spine, thoracic Start: 04-05-2022 ambulatory No Pcp (Historical) Ref erring Physician Start: 03-31-2022 ambulatory No Pcp (Historical) Ref erring Physician Start: 03-13-2022 Telephone encounter Alejandrina Johnson APRN.CNP Work Phone: [facility] Comment on above: Results Start: 03-10-2022 Telephone encounter Alejandrina Johnson APRN.CNP Work Phone: [facility] [place] Comment on above: Consult Start: 02-13-2022 End: 02-13-2022 Patient encounter procedure Santo Oneill MD Work Phone: Cardiology Comment on above: Cardiomegaly (Primar y Dx); Primary hypertension; Chronic diastolic congestive heart failure (HCC); Palpitations; Acute on chronic systolic CHF (congestive heart failure) (HCC) Start: 01-20-2022 End: 01-20-2022 Patient encounter procedure Alejandrina Harvey APRN.CNP Work Phone: [facility] Comment on above: Routine physical exa mination (Primary Dx); Primary hypertension; Mixed hyperlipidemia; Coronary artery disease involving benton coronary artery of benton heart with other form of angina pectoris (HCC); Vitamin D deficiency; Hypothyroidism, unspecified type Start: 01-20-2022 End: 01-20-2022 Physical examination Alejandrina Harvey APRN.CNP Work Phone: [facility] Start: 01-13-2022 Telephone encounter Estelita Culp APRN.CNP Work Phone: Cardiology Comment on above: Results Start: 12-27-2021 Refill Mandeep Gamble son DO Work Phone: [facility] Comment on above: Refill Request [...] Wes Marshall MD Work Phone: [facility] Endoscopy Comment on above: Abdominal bloating [ [...] ambulatory Mandeep Gamble son DO Work Phone: [facility] Start: 11-01-2021 Patient encounter procedure Mandeep Houser DO Work Phone: General Surgery Comment on above: Outpatient [place] [facility] Start: 10-27-2021 Telephone encounter Estelita Culp APRN.CNP Work Phone: [facility] Cardiology Comment on above: Results Start: 10-27-2021 End: 10-27-2021 Subsequent hospital visit by physician [facility] (I-Stat) Work Phone: Cat Scan Comment on above: Diverticulitis [K57. 92] Start: 10-24-2021 ambulatory Mandeep Gamble son DO Work Phone: [facility] Start: 10-24-2021 Patient encounter procedure Mandeep Houser DO Work Phone: [facility] [place] Comment on above: Outpatient [place] [facility] Start: 10-24-2021 Telephone encounter Estelita Culp MELI.MEDICAL SCIENTIST Work Phone: [place] [employer] Comment on above: Preparations For Pro cedures Start: 10-19-2021 End: 10-19-2021 Patient encounter procedure Alejandrina Harvey MELI.MEDICAL SCIENTIST Work Phone: [facility] Comment on above: Diverticulitis (Prim moni Dx); RLQ abdominal pain; Lower abdominal pain Start: 09-21-2021 End: 09-21-2021 Patient encounter procedure Mandeep Houser DO Work Phone: [facility] Comment on above: Rib pain (Primary Dx ); Somatic dysfunction of head region; Somatic dysfunction of spine, cervical; Somatic dysfunction of rib; Somatic dysfunction of spine, thoracic; Neck pain Start: 09-19-[address] moyatoby MELI.MEDICAL SCIENTIST Work Phone: [facility] Comment on above: Results Start: 09-02-2021 Telephone encounter Alejandrina leslie MELI.MEDICAL SCIENTIST Work Phone: [facility] Comment on above: Results Start: 09-01-2021 End: 09-01-2021 Subsequent hospital visit by physician Joe [facility] Work Phone: Radiology Comment on above: Chronic left shoulde r pain [M25.512, G89.29] Start: 09-01-2021 End: 09-01-2021 Patient encounter procedure Alejandrina Harvey MELI.MEDICAL SCIENTIST Work Phone: [facility] Comment on above: Chronic left shoulde r pain (Primary Dx); Left elbow pain; Primary hypertension; Mixed hyperlipidemia; Hypokalemia; Screening for lipid disorders; Screening for diabetes mellitus; Screening for thyroid disorder; Encounter for vitamin deficiency screening; Body mass index (BMI) 34.0-34.9, adult ; Abnormal finding of blood chemistry, unspecified Start: 08-29-2021 Telephone encounter Mandeep ochoa DO Work Phone: [facility] Comment on above: Appointment Start: 08-23-2021 ambulatory Farzana Rodriguez LPN I nternal Medicine [facility] Start: 08-15-2021 Documentation procedure Mammog hermann Coordinator [facility] Start: 08-15-2021 Letter encounter Mammography Coordinator [facility] Department Start: 08-15-2021 End: 08-15-2021 Subsequent hospital visit by physician Screen Mammo [facility] Comment on above: Encounter for screen ing mammogram for breast cancer [Z12.31] Start: 08-09-2021 End: 08-09-2021 ambulatory Estelita Maradiaga PT Work Phone: [facility] Comment on above: Left shoulder pain, unspecified chronicity; Lateral epicondylitis of left elbow Start: 01-05-2021 End: 01-05-2021 Subsequent hospital visit by physician Joe [facility] Work Phone: Radiology Comment on above: Chronic pain of righ t ankle [M25.571, G89.29] Start: 08-02-2020 End: 08-02-2020 Subsequent hospital visit by physician Joe [facility] Work Phone: Radiology Comment on above: [...] foot complete minimum 3 views Kari Harvey AQUATIC LIFE LABORER.MEDICAL SCIENTIST Work Phone: Start: 08-22-2023 Urnls dip stick/tablet rgnt auto w/o microscopy Alejandrina Harvey AQUATIC LIFE LABORER.MEDICAL SCIENTIST Work Phone: Start: 08-07-2023 ICD CLINIC [...] study 1/> sites axial skel Alejandrina Harvey AQUATIC LIFE LABORER.MEDICAL SCIENTIST Work Phone: Start: 12-05-2021 Colonoscopy flx dx w/collj spec when pfrmd Sincere Perkins PA-C Work Phone: Start: 12-05-2021 Esophagogastroduodenoscopy transoral diagnostic Sincere Perkins PA-C Work Phone: Start: 12-05-2021 Colonoscopy Wes Marshall MD Work Phone: Start: 10-27-2021 Ct abdomen & pelvis w/contrast material Alejandrina Harvey APRN.MEDICAL SCIENTIST Work Phone: Start: 09-01-2021 Radex elbow 2 views Alejandrina Harvey APRN.MEDICAL SCIENTIST Work Phone: Start: 08-15-2021 End: 08-15-2021 [...] Author Start: 07-08-2027 Diabetes Screening Diabetes Screening [facility] Start: 04-22-2027 Diabetes Screening Diabetes Screening [facility] Start: 01-12-2027 LIPID SCREEN LIPID SCREEN [facility] Start: 12-11-2026 Diabetes Screening Diabetes Screening [facility] Start: 12-05-2026 Colonoscopy COLONOSCOPY [facility] Start: 12-05-2026 COLORECTAL CANCER SCREENING COLORECTAL CANCER SCREENING [facility] Start: 11-17-2026 Diabetes Screening Diabetes Screening [facility] Start: 10-14-2026 Diabetes Screening Diabetes Screening [facility] Start: 09-19-2026 Diabetes Screening Diabetes Screening [facility] Start: 09-14-2026 LIPID SCREEN LIPID SCREEN [facility] Start: 08-21-2026 Diabetes Screening Diabetes Screening [facility] Start: 07-23-2026 Diabetes Screening Diabetes Screening [facility] Start: 07-17-2026 Diabetes Screening Diabetes Screening [facility] Start: 07-10-2026 Diabetes Screening Diabetes Screening [facility] Start: 02-27-2026 Diabetes Screening Diabetes Screening [facility] Start: 12-22-2025 LIPID SCREEN LIPID SCREEN [facility] Start: 12-14-2025 DIABETES SCREEN DIABETES SCREEN [facility] Start: 12-14-2025 Diabetes Screening Diabetes Screening [facility] Start: 10-21-2025 Annual PCP Team Chronic Disease Visit Annual PCP Team Chronic Disease Visit [facility] Start: 09-30-2025 Annual PCP Team Chronic Disease Visit Annual PCP Team Chronic Disease Visit [facility] Start: 08-25-2025 Annual PCP Team Chronic Disease Visit Annual PCP Team Chronic Disease Visit [facility] Start: 08-04-2025 Annual PCP Team Chronic Disease Visit Annual PCP Team Chronic Disease Visit [facility] Start: 07-21-2025 Annual PCP Team Chronic Disease Visit Annual PCP Team Chronic Disease Visit [facility] Start: 07-21-2025 DIABETES SCREEN DIABETES SCREEN [facility] Start: 07-08-2025 Annual PCP Team Chronic Disease Visit Annual PCP Team Chronic Disease Visit [facility] Start: 07-08-2025 BP Controlled (<130/80) BP Controlled (<130/80) [facility] in Start: 06-20-2025 Annual PCP Team Chronic Disease Visit Annual PCP Team Chronic Disease Visit [facility] Start: 05-30-2025 Annual PCP Team Chronic Disease Visit Annual PCP Team Chronic Disease Visit [facility] Start: 05-22-2025 DIABETES SCREEN DIABETES SCREEN [facility] Start: 05-20-2025 End: 05-20-2025 Patient encounter procedure 05/20/2025 2:00 PM EST Office Visit Cardiology [facility] [address] [place] [address] [place] [address] [place], [place] [id number] 6 months follow up Cardiology Comment on above: 6 months follow up Start: 05-12-2025 Annual PCP Team Chronic Disease Visit Annual PCP Team Chronic Disease Visit [facility] Start: 04-22-2025 Annual PCP Team Chronic Disease Visit Annual PCP Team Chronic Disease Visit [facility] Start: 03-09-2025 End: 03-09-2025 Patient encounter procedure 03/09/2025 2:00 PM EDT Office Visit Cardiology [address] [place] [address] Santo Oneill MD [address] [facility] [address] [place], [place] [id number] 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]; Nonischemic cardiomyopathy (HCC) [I42.8] Cardiology Comment on above: 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]; Nonischemic cardiomyopathy (HCC) [I42.8] Start: 02-11-2025 Annual PCP Team Chronic Disease Visit Annual PCP Team Chronic Disease Visit [facility] Start: 01-28-2025 Annual PCP Team Chronic Disease Visit Annual PCP Team Chronic Disease Visit [facility] Start: 01-14-2025 BP Controlled (<130/80) BP Controlled (<130/80) [facility] Start: 01-12-2025 DIABETES SCREEN DIABETES SCREEN [facility] Start: 01-03-2025 Annual PCP Team Chronic Disease Visit Annual PCP Team Chronic Disease Visit [facility] Start: 12-11-2024 Annual PCP Team Chronic Disease Visit Annual PCP Team Chronic Disease Visit [facility] Start: 11-24-2024 End: 11-24-2024 Patient encounter procedure 11/24/2024 2:00 PM EDT Office Visit [facility] [address] [place] [address] Mandeep Houser DO [address] [place] [address] [address]MT [address] [facility] Comment on above: OMT Start: 11-21-2024 End: 11-21-2024 Patient encounter procedure 11/21/2024 11:20 AM EDT Office Visit Cardiology [address] [place] [id number] Álvaro Lobo MD [address] [place] [address] follow up Cardiology Comment on above: follow up Start: 11-13-2024 Incentive spirometry [facility] Start: 11-13-2024 End: 11-13-2024 [facility] Start: 11-06-2024 Annual PCP Team Chronic Disease Visit Annual PCP Team Chronic Disease Visit [facility] Start: 11-04-2024 End: 11-04-2024 Patient encounter procedure Cardiology Comment on above: medtronic annual annual medtronic ck medtronic annual ck 9 months follow up Start: 11-03-2024 End: 11-03-2024 Patient encounter procedure Cardiology Comment on above: 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 in Start: 10-30-2024 Annual PCP Team Chronic Disease Visit Annual PCP Team Chronic Disease Visit [facility] Start: 10-30-2024 Anxiety Screening Anxiety Screening [facility] Start: 10-30-2024 Depression Screening Depression Screening [facility] Start: 10-27-2024 DIABETES SCREEN DIABETES SCREEN [facility] Start: 10-21-2024 End: 10-21-2024 Patient encounter procedure 10/21/2024 3:20 PM EDT Office Visit [facility] [address] [place] [address] Mandeep Houser DO [address] [facility] [place] [id number] OMT [facility] Comment on above: OMT Start: 10-14-2024 Annual PCP Team Chronic Disease Visit Annual PCP Team Chronic Disease Visit [facility] Start: 10-14-2024 RSV Vaccine (1 - 1-dose 60+ series) RSV Vaccine (1 - 1-dose 60+ series) [facility] Comment on above: Postponed from 2006 (Declined at t his time) Start: 10-14-2024 RSV Vaccine (1 - 1-dose 75+ series) RSV Vaccine (1 - 1-dose 75+ series) [facility] Comment on above: Postponed from 2021 (Declined at t his time) Start: 10-14-2024 Shingrix Vaccine (1 of 2) Shingrix Vaccine (1 of 2) [facility] Comment on above: Postponed from 1996 (Declined at t his time) Start: 10-14-2024 Urine microalbumin profile DTaP,Tdap,Td Vaccine (1 - Tdap) [facility] Comment on above: Postponed from 1965 (Declined at t his time) Start: 10-14-2024 End: 10-14-2024 Patient encounter procedure Cardiology Comment on above: 9 months follow up Start: 09-30-2024 Annual PCP Team Chronic Disease Visit Annual PCP Team Chronic Disease Visit [facility] Start: 09-23-2024 End: 09-23-2024 Patient encounter procedure 09/23/2024 3:40 PM EDT Office Visit Family [facility] [employer] [address] [facility] [place] [address] Mandeep Houser, [address] [place] [address] OMT Family [facility] [employer] Comment on above: OMT Start: 09-19-2024 Hepatitis B surface antibody level LDL Cholesterol [facility] Start: 09-14-2024 DIABETES SCREEN DIABETES SCREEN [facility] Start: 09-12-2024 Annual PCP Team Chronic Disease Visit Annual PCP Team Chronic Disease Visit [facility] Start: 08-25-2024 End: 08-25-2024 Patient encounter procedure 08/25/2024 3:40 PM EDT Office Visit Family [facility] [employer] [address] [place] [address] Mandeep Houser DO [address] [place] [address] OMT [facility] Comment on above: OMT Start: 08-22-2024 End: 08-22-2024 Patient encounter procedure 08/22/2024 11:20 AM EDT Office Visit Cardiology [address] [address] Álvaro Lobo MD [address] [place] [address] follow up Cardiology Comment on above: follow up Start: 08-21-2024 Annual PCP Team Chronic Disease Visit Annual PCP Team Chronic Disease Visit [facility] Start: 08-20-2024 End: 08-20-2024 Patient encounter procedure 08/20/2024 1:00 PM EDT Office Visit Cardiology [address] [address] Angel Castro DO [address] [place] [address] 6 month follow up Cardiology Comment on above: 6 month follow up Start: 08-15-2024 End: 08-15-2024 Patient encounter procedure 08/15/2024 1:00 PM EDT Office Visit Cardiology [address] [place] [address] Nonischemic cardiomyopathy (HCC) [I42.8] Cardiology Comment on above: Nonischemic cardiomyopathy (HCC) [I42.8] Start: 08-06-2024 BP Controlled (<130/80) BP Controlled (<130/80) [facility] in Start: 08-06-2024 End: 02-06-2025 Echocardiography ECHO Cardiology Routine Nonischemic cardiomyopathy (HCC) Expected: 08/06/2024, Expires: 02/06/2025 [facility] Work Phone: Comment on above: Expected: 08/06/2024, Expires: Start: 08-06-2024 End: 08-06-2024 Patient encounter procedure 08/06/2024 11:20 AM EDT Office Visit Cardiology [address] [address] Nonischemic cardiomyopathy (HCC) [I42.8] Cardiology Comment on above: Nonischemic cardiomyopathy (HCC) [I42.8] Start: 08-04-2024 End: 08-04-2024 Patient encounter procedure 08/04/2024 2:00 PM EDT Office Visit [facility] [address] [place] [address] Mandeep Houser DO [address] [place] [address] Omt [facility] Comment on above: Omt Start: 07-23-2024 Annual PCP Team Chronic Disease Visit Annual PCP Team Chronic Disease Visit [facility] Start: 07-21-2024 End: 07-21-2024 Patient encounter procedure 07/21/2024 4:00 PM EDT Office Visit Family [facility] [employer] [address] [facility] [place] [address] Mandeep Houser, [address] [place] [address] 2 week follow up Family [facility] Comment on above: 2 week follow up Start: 07-08-2024 End: 10-07-2024 25-hydroxyvitamin D3 [Mass/volume] in Serum or Plasma [facility] Comment on above: Expected: 07/08/2024, Expires: Start: 07-08-2024 End: 10-07-2024 Cobalamin (Vitamin B12) [Mass/volume] in Serum or Plasma [facility] Comment on above: Expected: 07/08/2024, Expires: Start: 07-08-2024 End: 10-07-2024 Comprehensive metabolic 2000 panel - Serum or Plasma [facility] Comment on above: Expected: 07/08/2024, Expires: Start: 07-08-2024 End: 10-07-2024 Magnesium [Mass/volume] in Serum or Plasma [facility] Comment on above: Expected: 07/08/2024, Expires: Start: 07-08-2024 End: 10-07-2024 Natriuretic peptide.B prohormone N-Terminal [Mass/volume] in Serum or Plasma [facility] Comment on above: Expected: 07/08/2024, Expires: Start: 07-08-2024 End: 07-08-2024 Patient encounter procedure 07/08/2024 2:00 PM EST Office Visit [facility] [place] [address] [place] [address] Mandeep Houser DO [address] [place] [address] OMT [facility] Comment on above: OMT Start: 07-08-2024 End: 10-07-2024 Thyrotropin [Units/volume] in Serum or Plasma [facility] Comment on above: Expected: 07/08/2024, Expires: Start: 07-08-2024 End: 10-07-2024 Thyroxine (T4) free [Mass/volume] in Serum or Plasma [facility] Comment on above: Expected: 07/08/2024, Expires: Start: 07-08-2024 End: 10-07-2024 Urinalysis complete panel - Urine [facility] Work Phone: Comment on above: Expected: 07/08/2024, Expires: Start: 06-20-2024 End: 06-20-2024 Patient encounter procedure 06/20/2024 2:20 PM EST Office Visit [facility] [address] [place] [address] Mandeep Houser, [address] [place] [address] OMT Family [facility] Comment on above: OMT Start: 06-12-2024 BP Controlled (<130/80) BP Controlled (<130/80) [facility] Start: 05-30-2024 End: 05-30-2024 Patient encounter procedure 05/30/2024 3:20 PM EST Office Visit [facility] [place] [address] [place] [address] Mandeep Houser, [address] [place] [address] OMT [facility] Comment on above: OMT Start: 05-14-2024 Advance Directive Discussion Advance Directive Discussion [facility] Start: 05-12-2024 End: 05-12-2024 Patient encounter procedure 05/12/2024 3:20 PM EST Office Visit [facility] [address] [facility] [place] [address] Mandeep Houser, DO [address] [place] [address] OMT [facility] Comment on above: OMT Start: 04-22-2024 End: 07-22-2024 Bacteria identified in Urine by Culture URINE CULTURE Microbiology Routine Suprapubic pain Expected: 04/22/2024, Expires: 07/22/2024 [facility] Work Phone: Comment on above: Expected: 04/22/2024, Expires: 5 Start: 04-22-2024 End: 07-22-2024 C reactive protein [Mass/volume] in Serum or Plasma [facility] Comment on above: Expected: 04/22/2024, Expires: 5 Start: 04-22-2024 End: 07-22-2024 Comprehensive metabolic 2000 panel - Serum or Plasma [facility] Comment on above: Expected: 04/22/2024, Expires: 5 Start: 04-22-2024 End: 07-22-2024 Lipase [Enzymatic activity/volume] in Serum or Plasma [facility] Comment on above: Expected: 04/22/2024, Expires: Start: 04-22-2024 End: 04-22-2024 Patient encounter procedure 04/22/2024 2:00 PM EST Office Visit [facility] [address] [place] [address] Mandeep Houser, DO [address] [place] [address] OMT [facility] Comment on above: OMT Start: 04-17-2024 Annual PCP Team Chronic Disease Visit Annual PCP Team Chronic Disease Visit [facility] Start: 03-18-2024 End: 03-18-2024 Patient encounter procedure 03/18/2024 2:00 PM EST Office Visit [facility] [address] [place] [address] Mandeep Houser, DO [address] [place] [address] OMT [facility] Comment on above: OMT Start: 02-12-2024 End: 02-12-2024 Patient encounter procedure 02/12/2024 2:00 PM EDT Office Visit [facility] [address] [place] [address] Mandeep Houser, DO [address] [place] [address] OMT [facility] Comment on above: OMT Start: 02-12-2024 End: 05-13-2024 Thyrotropin [Units/volume] in Serum or Plasma [facility] Work Phone: Comment on above: Expected: 02/12/2024, Expires: Start: 02-12-2024 End: 05-13-2024 Thyroxine (T4) free [Mass/volume] in Serum or Plasma [facility] Comment on above: Expected: 02/12/2024, Expires: Start: 02-12-2024 End: 05-13-2024 Triiodothyronine (T3) Free [Mass/volume] in Serum or Plasma [facility] Comment on above: Expected: 02/12/2024, Expires: Start: 02-07-2024 End: 02-07-2024 Patient encounter procedure 02/07/2024 2:20 PM EDT Office Visit Cardiology [address] [address] Angel Castro DO [address] [place] [address] 3 month follow up Cardiology Comment on above: 3 month follow up Start: 02-07-2024 Annual PCP Team Chronic Disease Visit Annual PCP Team Chronic Disease Visit [facility] Start: 02-01-2024 DIABETES SCREEN DIABETES SCREEN [facility] Start: 01-29-2024 End: 04-29-2024 Thyrotropin [Units/volume] in Serum or Plasma THYROID STIMULATING HORMONE Lab Routine Hypothyroidism, acquired Expected: 01/29/2024, Expires: 04/29/2024 [facility] Work Phone: Comment on above: Expected: 01/29/2024, Expires: Start: 01-29-2024 End: 04-29-2024 Thyroxine (T4) free [Mass/volume] in Serum or Plasma T4 FREE/FREE THYROXINE Lab Routine Hypothyroidism, acquired Expected: 01/29/2024, Expires: 04/29/2024 [facility] Comment on above: Expected: 01/29/2024, Expires: Start: 01-29-2024 End: 04-29-2024 Triiodothyronine (T3) Free [Mass/volume] in Serum or Plasma T3, FREE Lab Routine Hypothyroidism, acquired Expected: 01/29/2024, Expires: 04/29/2024 [facility] Comment on above: Expected: 01/29/2024, Expires: Start: 01-29-2024 End: 01-29-2024 Patient encounter procedure 01/29/2024 11:40 AM EDT Office Visit [facility] [address] [place] [address] Mandeep Houser DO [address] [place] [address] OMT [facility] Comment on above: OMT Start: 01-15-2024 End: 01-15-2024 Patient encounter procedure 01/15/2024 1:00 PM EDT Office Visit Cardiology [address] [facility] [address] [place] [id number] [place] [address] [place] [address] 5 months follow up in office per Cardiology Comment on above: 5 months follow up in office per Start: 01-10-2024 ANNUAL PCP TEAM CHRONIC DISEASE VISIT ANNUAL PCP TEAM CHRONIC DISEASE VISIT [facility] Start: 01-07-2024 End: 01-07-2024 Patient encounter procedure Cardiology Comment on above: 5 month follow up office appointment per Start: 01-04-2024 End: 01-04-2024 Patient encounter procedure 01/04/2024 4:20 PM EDT Office Visit [facility] [place] [address] [place] [address] Mandeep Houser DO [address] [place] [address] OMT [facility] Comment on above: OMT Start: 12-14-2023 ANNUAL PCP TEAM CHRONIC DISEASE VISIT ANNUAL PCP TEAM CHRONIC DISEASE VISIT [facility] Start: 12-12-2023 End: 12-12-2023 Patient encounter procedure 12/12/2023 3:40 PM EDT Office Visit [facility] [place] [address] [facility] [place] [address] Mandeep Houser DO [address] [facility] [place] [address] OMT [facility] Comment on above: OMT Start: 12-05-2023 End: 12-05-2023 Patient encounter procedure 12/05/2023 1:00 PM EDT Appointment Cardiology Lab [address] [place] [address] ECHO Cardiology Lab Comment on above: ECHO Start: 11-27-2023 End: 11-27-2023 Patient encounter procedure 11/27/2023 11:20 AM EDT Office Visit [facility] [place] [address] [facility] [place] [address] Mandeep Houser, [address] [place] [address] OMT [facility] Comment on above: OMT Start: 11-14-2023 End: 11-14-2023 Patient encounter procedure 11/14/2023 11:40 AM EDT Office Visit Cardiology [address] [address] Angel aCstro, DO [address] [place] [address] 3 month follow up Cardiology Comment on above: 3 month follow up Start: 11-07-2023 End: 11-07-2023 Patient encounter procedure 11/07/2023 1:00 PM EDT Office Visit Cardiology [address] [address] ECHO Cardiology Comment on above: ECHO Start: 11-01-2023 End: 11-01-2023 Patient encounter procedure Cardiology Comment on above: follow up check incision Word finding difficu lty [R47.89]; New onset of headaches after age 50 [R51.9] Start: 10-31-2023 End: 10-31-2023 Patient encounter procedure 10/31/2023 3:00 PM EDT Office Visit [facility] [address] [place] [address] Mandeep Houser, [address] [place] [address] 3 month follow up Family [facility] Comment on above: 3 month follow up Start: 10-31-2023 End: 01-30-2024 25-hydroxyvitamin D3 [Mass/volume] in Serum or Plasma [facility] Work Phone: Comment on above: Expected: 10/31/2023, Expires: 4 Start: 10-31-2023 End: 01-30-2024 C reactive protein [Mass/volume] in Serum or Plasma [facility] Comment on above: Expected: 10/31/2023, Expires: 4 Start: 10-31-2023 End: 01-30-2024 Iron and Iron binding capacity panel - Serum or Plasma [facility] Comment on above: Expected: 10/31/2023, Expires: 4 Start: 10-31-2023 End: 01-30-2024 Magnesium [Mass/volume] in Serum or Plasma [facility] Comment on above: Expected: 10/31/2023, Expires: Start: 10-31-2023 End: 01-30-2024 Thyrotropin [Units/volume] in Serum or Plasma [facility] Comment on above: Expected: 10/31/2023, Expires: Start: 10-31-2023 End: 01-30-2024 Thyroxine (T4) free [Mass/volume] in Serum or Plasma [facility] Comment on above: Expected: 10/31/2023, Expires: Start: 10-31-2023 End: 01-30-2024 Triiodothyronine (T3) Free [Mass/volume] in Serum or Plasma [facility] Comment on above: Expected: 10/31/2023, Expires: 4 Start: 10-15-2023 BP CONTROLLED (<130/80) BP CONTROLLED (<130/80) [facility] Start: 10-15-2023 End: 01-14-2024 Comprehensive metabolic 2000 panel - Serum or Plasma [facility] Work Phone: Comment on above: Expected: 10/15/2023, Expires: 4 Start: 10-15-2023 End: 01-14-2024 Urate [Mass/volume] in Serum or Plasma [facility] Comment on above: Expected: 10/15/2023, Expires: 4 Start: 10-11-2023 ANNUAL PCP TEAM CHRONIC DISEASE VISIT ANNUAL PCP TEAM CHRONIC DISEASE VISIT [facility] Start: 10-02-2023 End: 10-02-2023 ambulatory Cardiology Comment on above: Phone visit 6-8 wks per Dr. Wells please call [phone] Start: 09-24-2023 End: 09-24-2023 Patient encounter procedure 09/24/2023 10:15 AM EDT Office Visit Podiatry [address] [place], [place] [id number] Oliverio Mata [address], [place] [id number] left foot pain swollen Podiatry Comment on above: left foot pain swollen Start: 09-19-2023 End: 12-19-2023 Basic metabolic 2000 panel - Serum or Plasma BASIC METABOLIC PANEL Lab Routine Nonischemic cardiomyopathy (HCC) Chronic systolic congestive heart failure (HCC) Expected: 09/19/2023 (Approximate), Expires: 12/19/2023 [facility] Work Phone: Comment on above: Expected: 09/19/2023 (Approximate), Expi res: 12/19/2023 Start: 09-05-2023 End: 12-05-2023 Lipid 1996 panel - Serum or Plasma LIPID PANEL BASIC Lab Routine Mixed hyperlipidemia Expected: 09/05/2023, Expires: 12/05/2023 [facility] Comment on above: Expected: 09/05/2023, Expires: Start: 08-23-2023 ANNUAL PCP TEAM CHRONIC DISEASE VISIT ANNUAL PCP TEAM CHRONIC DISEASE VISIT [facility] Start: 08-15-2023 BP CONTROLLED (<130/80) BP CONTROLLED (<130/80) [facility] Start: 08-03-2023 ANNUAL PCP TEAM CHRONIC DISEASE VISIT ANNUAL PCP TEAM CHRONIC DISEASE VISIT [facility] Start: 07-24-2023 End: 10-23-2023 25-hydroxyvitamin D3 [Mass/volume] in Serum or Plasma [facility] Work Phone: Comment on above: Expected: 07/24/2023, Expires: Start: 07-22-2023 ANNUAL PCP TEAM CHRONIC DISEASE VISIT ANNUAL PCP TEAM CHRONIC DISEASE VISIT [facility] Start: 07-22-2023 Hepatitis B surface antibody level LDL CHOLESTEROL [facility] Start: 07-22-2023 HEPATITIS C SCREENING HEPATITIS C SCREENING [facility] Comment on above: Postponed from 1964 (Declined at t his time) Start: 07-22-2023 Hepatitis C screening Hepatitis C Screening [facility] Comment on above: Postponed from 1964 (Declined at t his time) Start: 07-22-2023 Urine microalbumin profile [facility] Comment on above: Postponed from 1965 (Declined at t his time) Start: 07-19-2023 ANNUAL PCP TEAM CHRONIC DISEASE VISIT ANNUAL PCP TEAM CHRONIC DISEASE VISIT [facility] Start: 05-14-2023 Advance Directive Discussion Advance Directive Discussion [facility] Start: 05-14-2023 Behavioral Health Screening Behavioral Health Screening [facility] Start: 05-14-2023 Depression Assessment Depression Assessment [facility] Start: 05-13-2023 ADVANCE DIRECTIVE DISCUSSION ADVANCE DIRECTIVE DISCUSSION [facility] Comment on above: Postponed from 05/14/2022 (Declined at t his time) Start: 05-03-2023 ANNUAL PCP TEAM CHRONIC DISEASE VISIT ANNUAL PCP TEAM CHRONIC DISEASE VISIT [facility] Start: 03-10-2023 ANNUAL PCP TEAM CHRONIC DISEASE VISIT ANNUAL PCP TEAM CHRONIC DISEASE VISIT [facility] Start: 03-10-2023 BP CONTROLLED (<130/80) BP CONTROLLED (<130/80) [facility] Start: 02-09-2023 End: 04-11-2023 CBC W Auto Differential panel - Blood CBC + DIFF Lab Routine Hypothyroidism, unspecified type Expected: 02/09/2023, Expires: 04/11/2023 [facility] Work Phone: Comment on above: Expected: 02/09/2023, Expires: 3 Start: 02-09-2023 End: 04-11-2023 Comprehensive metabolic 2000 panel - Serum or Plasma COMP METABOLIC PANEL Lab Routine Hypothyroidism, unspecified type Expected: 02/09/2023, Expires: 04/11/2023 [facility] Work Phone: Comment on above: Expected: 02/09/2023, Expires: 3 Start: 02-09-2023 End: 04-11-2023 Thyrotropin [Units/volume] in Serum or Plasma TSH BLD Lab Routine Hypothyroidism, unspecified type Expected: 02/09/2023, Expires: 04/11/2023 [facility] Work Phone: Comment on above: Expected: 02/09/2023, Expires: 3 Start: 02-09-2023 End: 04-11-2023 Thyroxine (T4) free [Mass/volume] in Serum or Plasma T4 FREE/FREE THYROX Lab Routine Hypothyroidism, unspecified type Expected: 02/09/2023, Expires: 04/11/2023 [facility] Work Phone: Comment on above: Expected: 02/09/2023, Expires: 3 Start: 02-09-2023 End: 04-11-2023 Triiodothyronine (T3) Free [Mass/volume] in Serum or Plasma T3 FREE BLD Lab Routine Hypothyroidism, unspecified type Expected: 02/09/2023, Expires: 04/11/2023 [facility] Work Phone: Comment on above: Expected: 02/09/2023, Expires: 3 Start: 01-20-2023 ANNUAL PCP TEAM CHRONIC DISEASE VISIT ANNUAL PCP TEAM CHRONIC DISEASE VISIT [facility] Start: 01-20-2023 BP CONTROLLED (<130/80) BP CONTROLLED (<130/80) [facility] Start: 01-12-2023 Hepatitis B surface antibody level LDL CHOLESTEROL [facility] Start: 12-19-2022 BP CONTROLLED (<130/80) BP CONTROLLED (<130/80) [facility] Start: 11-02-2022 BP CONTROLLED (<130/80) BP CONTROLLED (<130/80) [facility] Start: 10-19-2022 ANNUAL PCP TEAM CHRONIC DISEASE VISIT ANNUAL PCP TEAM CHRONIC DISEASE VISIT [facility] Start: 10-14-2022 End: 10-28-2022 Influenza virus A and B RNA and SARS-CoV-2 (COVID-19) N gene panel - Respiratory specimen by PRECIOUS with probe detection COVID WITH FLUA+B, ROUTINE Microbiology Routine Sore throat Acute cough Expected: 10/14/2022, Expires: 10/28/2022 [facility] Work Phone: Comment on above: Expected: 10/14/2022, Expires: 3 Start: 09-21-2022 ANNUAL PCP TEAM CHRONIC DISEASE VISIT ANNUAL PCP TEAM CHRONIC DISEASE VISIT [facility] Start: 09-14-2022 Hepatitis B surface antibody level LDL CHOLESTEROL [facility] Start: 09-01-2022 ANNUAL PCP TEAM CHRONIC DISEASE VISIT ANNUAL PCP TEAM CHRONIC DISEASE VISIT [facility] Start: 08-15-2022 Mammography MAMMOGRAM [facility] Start: 07-01-2022 ANNUAL PCP TEAM CHRONIC DISEASE VISIT ANNUAL PCP TEAM CHRONIC DISEASE VISIT [facility] Start: 05-14-2022 ADVANCE DIRECTIVE DISCUSSION ADVANCE DIRECTIVE DISCUSSION [facility] Start: 05-14-2022 DEPRESSION ASSESSMENT DEPRESSION ASSESSMENT [facility] Start: 02-20-2022 End: 02-13-2023 Echocardiography ECHO Cardiology Routine Cardiomegaly Expected: 02/20/2022, Expires: 02/13/2023 [facility] Work Phone: Comment on above: Expected: 02/20/2022, Expires: 3 Start: 12-29-2021 PNEUMOCOCCAL: 65+ (2 - PCV) PNEUMOCOCCAL: 65+ (2 - PCV) [facility] Start: 12-22-2021 Hepatitis B surface antibody level LDL CHOLESTEROL [facility] Start: 12-09-2021 Adult depression screening assessment DEPRESSION SCREENING [facility] Start: 11-29-2021 End: 01-29-2022 Basic metabolic 2000 panel - Serum or Plasma BASIC METABOLIC PNL Lab Routine Chronic systolic CHF (congestive heart failure) (HCC) Expected: 11/29/2021, Expires: 01/29/2022 [facility] Work Phone: Comment on above: Expected: 11/29/2021, Expires: 2 Start: 11-29-2021 End: 01-29-2022 CBC panel - Blood by Automated count CBC Lab Routine Chronic systolic CHF (congestive heart failure) (HCC) Expected: 11/29/2021, Expires: 01/29/2022 [facility] Work Phone: Comment on above: Expected: 11/29/2021, Expires: 2 Start: 10-20-2021 End: 12-20-2021 T3 BLD T3 BLD Lab Routine Hypothyroidism, unspecified type Expected: 10/20/2021, Expires: 12/20/2021 [facility] Work Phone: Comment on above: Expected: 10/20/2021, Expires: 2 Start: 10-20-2021 End: 12-20-2021 T4 FREE/FREE THYROX T4 FREE/FREE THYROX Lab Routine Hypothyroidism, unspecified type Expected: 10/20/2021, Expires: 12/20/2021 [facility] Work Phone: Comment on above: Expected: 10/20/2021, Expires: 2 Start: 10-20-2021 End: 12-20-2021 Thyrotropin [Units/volume] in Serum or Plasma TSH BLD Lab Routine Hypothyroidism, unspecified type Expected: 10/20/2021, Expires: 12/20/2021 [facility] Work Phone: Comment on above: Expected: 10/20/2021, Expires: 2 Start: 09-01-2021 End: 11-01-2021 CBC W Auto Differential panel - Blood CBC + DIFF Lab Routine Primary hypertension Expected: 09/01/2021, Expires: 11/01/2021 [facility] Work Phone: Comment on above: Expected: 09/01/2021, Expires: 2 Start: 09-01-2021 End: 11-01-2021 Comprehensive metabolic 2000 panel - Serum or Plasma COMP METABOLIC PANEL Lab Routine Primary hypertension Hypokalemia Expected: 09/01/2021, Expires: 11/01/2021 [facility] Work Phone: Comment on above: Expected: 09/01/2021, Expires: 2 Start: 09-01-2021 End: 11-01-2021 Hemoglobin A1c/Hemoglobin.total in Blood HGB A1C Lab Routine Screening for diabetes mellitus Abnormal finding of blood chemistry, unspecified Expected: 09/01/2021, Expires: 11/01/2021 [facility] Work Phone: Comment on above: Expected: 09/01/2021, Expires: 2 Start: 09-01-2021 End: 11-01-2021 LIPID PANEL BASIC LIPID PANEL BASIC Lab Routine Mixed hyperlipidemia Expected: 09/01/2021, Expires: 11/01/2021 [facility] Work Phone: Comment on above: Expected: 09/01/2021, Expires: 2 Start: 09-01-2021 End: 11-01-2021 Thyrotropin [Units/volume] in Serum or Plasma TSH BLD Lab Routine Screening for thyroid disorder Expected: 09/01/2021, Expires: 11/01/2021 [facility] Work Phone: Comment on above: Expected: 09/01/2021, Expires: 2 Start: 09-01-2021 End: 11-01-2021 VITAMIN D 25 HYDROXY VITAMIN D 25 HYDROXY Lab Routine Encounter for vitamin deficiency screening Body mass index (BMI) 34.0-34.9, adult Expected: 09/01/2021, Expires: 11/01/2021 [facility] Work Phone: Comment on above: Expected: 09/01/2021, Expires: 2 Start: 08-09-2021 Mammography MAMMOGRAM [facility] Start: 2021 RSV Vaccine (1 - 1-dose 75+ series) RSV Vaccine (1 - 1-dose 75+ series) [facility] Start: 05-14-2021 ADVANCE DIRECTIVE DISCUSSION ADVANCE DIRECTIVE DISCUSSION [facility] Start: 05-14-2021 DEPRESSION ASSESSMENT DEPRESSION ASSESSMENT [facility] Start: 12-19-2019 Colonoscopy COLONOSCOPY [facility] Start: 12-19-2019 COLORECTAL CANCER SCREENING COLORECTAL CANCER SCREENING [facility] Start: 07-17-2011 BONE DENSITY BONE DENSITY [facility] Start: 07-13-2011 Medicare Annual Wellness Visit Medicare Annual Wellness Visit [facility] Start: 2006 RSV Vaccine (1 - 1-dose 60+ series) RSV Vaccine (1 - 1-dose 60+ series) [facility] Start: 1996 SHINGRIX VACCINE (1 of 2) SHINGRIX VACCINE (1 of 2) [facility] Start: 07-17-1991 COLOGUARD (FIT-DNA) COLOGUARD (FIT-DNA) [facility] Start: 07-17-[address] COLONOGRAPHY [facility] Start: 07-17-1991 FECAL OCCULT BLOOD FECAL OCCULT BLOOD [facility] Start: 07-17-1991 SIGMOIDOSCOPY SIGMOIDOSCOPY [facility] Start: 1965 Urine microalbumin profile [facility] Start: 1964 BP CONTROLLED (<130/80) BP CONTROLLED (<130/80) [facility] Start: 1964 HEPATITIS C SCREENING HEPATITIS C SCREENING [facility] Start: 1964 Hepatitis C screening Hepatitis C Screening [facility] End: 11-18-2022 Ct abdomen & pelvis w/contrast material CT ABD/PEL W IVCON Radiology Routine Diverticulitis RLQ abdominal pain Lower abdominal pain 1 Occurrences starting 10/19/2021 until 11/18/2022 [facility] Work Phone: Comment on above: 1 Occurrences starting 10/19/2021 until 11/18/2022 End: 09-21-2023 Ct abdomen & pelvis w/contrast material CT ABD/PEL W IVCON Radiology STAT Abdominal distension (gaseous) Nausea RUQ abdominal pain 1 Occurrences starting 08/22/2022 until 09/21/2023 [facility] Work Phone: Comment on above: 1 Occurrences starting 08/22/2022 until 09/21/2023 End: 11-29-2024 CT Head WO contrast CT BRAIN WO IVCON Radiology STAT Word finding difficulty New onset of headaches after age 50 1 Occurrences starting 10/31/2023 until 11/29/2024 [facility] Comment on above: 1 Occurrences starting 10/31/2023 until 11/29/2024 End: 08-20-2023 DXA-AXIAL SKELETON DXA-AXIAL SKELETON Radiology Routine Screening for osteoporosis Asymptomatic menopause 1 Occurrences starting 07/21/2022 until 08/20/2023 [facility] Work Phone: Comment on above: 1 Occurrences starting 07/21/2022 until 08/20/2023 End: 08-04-2023 ECG COMPLETE ECG COMPLETE ECG Routine Primary hypertension Palpitations Mixed hyperlipidemia 1 Occurrences starting 08/03/2022 until 08/04/2023 [facility] Work Phone: Comment on above: 1 Occurrences starting 08/03/2022 until 08/04/2023 ECG COMPLETE [facility] Work Phone: Comment on above: Ordered: 04/09/2023 ECG COMPLETE ECG COMPLETE ECG Routine LBBB (left bundle branch block) Presence of cardiac resynchronization therapy defibrillator (DISTRICT FIRE MANAGEMENT OFFICER-D) Acute on chronic systolic CHF (congestive heart failure) (HCC) Ordered: 08/07/2023 [facility] Work Phone: Comment on above: Ordered: 08/07/2023 ECG COMPLETE ECG COMPLETE ECG Routine Presence of cardiac resynchronization therapy defibrillator (DISTRICT FIRE MANAGEMENT OFFICER-D) Non-ischemic cardiomyopathy (HCC) LBBB (left bundle branch block) Ordered: 11/01/2023 [facility] Work Phone: Comment on above: Ordered: 11/01/2023 ECG COMPLETE ECG COMPLETE ECG Routine Cardiac resynchronization therapy defibrillator (DISTRICT FIRE MANAGEMENT OFFICER-D) in place Ordered: 11/03/2024 [facility] Work Phone: Comment on above: Ordered: 11/03/2024 OUTSIDE VENDOR CARDI AC OUTPATIENT EXTENDED RHYTHM RECORDING (WITHOUT TELEMETRY) OUTSIDE VENDOR CARDIAC OUTPATIENT EXTENDED RHYTHM RECORDING (WITHOUT TELEMETRY) Holter Routine Primary hypertension Palpitations Ordered: 08/14/2022 [facility] Work Phone: Comment on above: Ordered: 08/14/2022 OUTSIDE VENDOR CARDI AC OUTPATIENT EXTENDED RHYTHM RECORDING (WITHOUT TELEMETRY) OUTSIDE VENDOR CARDIAC OUTPATIENT EXTENDED RHYTHM RECORDING (WITHOUT TELEMETRY) Holter Routine Cardiac resynchronization therapy defibrillator (DISTRICT FIRE MANAGEMENT OFFICER-D) in place Ordered: 11/03/2024 [facility] Comment on above: Ordered: 11/03/2024 Patient Education ED Chest Wall Contusion [facility] Work Phone: SURGICAL PATHOLOGY [facility] Work Phone: Comment on above: Release Upon Ordering for 1 Occurrences starting 12/05/2021, 1 completed UA DIP, URINE (POC) UA DIP, URIN E (POC) Lab Routine Vagina, candidiasis Burning with urination Ordered: 08/22/2023 [facility] Work Phone: Comment on above: Ordered: 08/22/2023 End: 08-07-2025 XR Chest PA and Lateral XR CHEST 2V FRONTAL/LAT Radiology Routine Acute cough 1 Occurrences starting 07/08/2024 until 08/07/2025 [facility] Comment on above: 1 Occurrences starting 07/08/2024 until 08/07/2025 XR Chest PA and Lateral XR CHEST 2V FRONTAL/LAT Radiology Routine Acute cough 07/08/2024 3:31 PM EST [facility] End: 10-23-2024 XR Foot - left AP and Lateral and oblique XR FOOT GENERAL 3V AP/LAT/OBL LEFT Radiology Routine Repetitive stress injury 1 Occurrences starting 09/24/2023 until 10/23/2024 [facility] Work Phone: Comment on above: 1 Occurrences starting 09/24/2023 until 10/23/2024 XR Foot - left AP an d Lateral and oblique XR FOOT GENERAL 3V AP/LAT/OBL LEFT Radiology Routine Repetitive stress injury 09/24/2023 11:15 AM EDT [facility] End: 12-06-2024 XR Lumbar spine 3 Views XR LUMBAR GENERAL 3V AP/LAT/L5-S1 Radiology Routine Acute midline low back pain without sciatica 1 Occurrences starting 11/07/2023 until 12/06/2024 [facility] Work Phone: Comment on above: 1 Occurrences starting 11/07/2023 until 12/06/2024 [facility] Immunizations Immunization Date Immunization Notes Care Provider Fa gideon 07-21-2022 pneumococcal (PCV20) vaccine, 20 valent (PREVNAR 20) Alejandrina Yasir AQUATIC LIFE LABORER.MEDICAL SCIENTIST Work Phone: [facility] 07-21-2022 pneumococcal Conjuga te, unspecified formulation Alejandrina Yasir AQUATIC LIFE LABORER.MEDICAL SCIENTIST Work Phone: [facility] Work Phone: 12-29-2020 pneumococcal polysaccharide vaccine, 23 valent Estelita Maradiaga PT Work Phone: [facility] Work Phone: Payers Date Payer Category Payer Self-pay 2013 Private Health Insurance [facility] AARP SUPPLEMENT [id number] 2013-Present [phone] [address] [place] [address] Indemnity [id number] 2013 Private Health Insurance [id number] 2013 Unknown [id number] 2011 Medicare MEDICARE MEDICAR E A AND B [id number] 2011-Present [phone] [address] [address] [place] [address] Medicare [id number] 2011 Medicare [id number] 2011 Medicare [id number] Medicare [id number] Unknown NOLANARE/AKRO [id number] Unknown [id number] Unknown [id number] Unknown [id number] Unknown [id number] Unknown [id number] Unknown [id number] Unknown [id number] Social History Date Type Detail Facility Start: 09-03-2020 End: 11-13-2024 Tobacco smoking status NHIS Ex-smoker [facility] End: 10-22-2002 History of tobacco use Current smoker [facility] End: 10-22-2002 History of tobacco use Cigarette Smoker [facility] Start: 07-01-2021 End: 11-03-2024 Alcohol intake Current non-drinker of alcohol (finding) [facility] Start: 1945 Sex Assigned At Not on file C [facility] Start: 03-21-2020 End: 03-10-2022 Exposure to SARS-CoV-2 (event) Not sure [facility] Start: 09-03-2020 End: 01-15-2024 Tobacco use and exposure Smokeless tobacco non-user [facility] Start: 09-27-2022 End: 10-14-2022 History of Social function [facility] Work Phone: Start: 09-27-2022 End: 10-14-2022 Tobacco use panel [facility] Work Phone: Adult Depression Screening Assessment 0 [facility] Work Phone: Has the [employer], [email or web address], or water [employer] threatened to shut off services in your home in past 12Mo No [facility] How hard is it for y ou to pay for the very basics like food, housing, medical care, and heating Not very hard [facility] (I/We) worried paulo er (my/our) food would run out before (I/we) got money to buy more. Never true [facility] Start: 08-29-2023 [facility] Start: 1945 Sex Assigned At Female [facility] NEGATED: Highlighted row - - [facility] Work Phone: Medical Equipment Procedure Code Equipment Code Equipment Original Text Equipment Identifier Dates Sling Dennis Polypropylene 60x1.1cm Suburethral Transobturator Tape - [id number] Start: 05-24-2020 [id number] Baltazar lt Xt Hf [employer] Associate-D [id number] Start: 2023 [id number] Caps urefix Novus [id number] Start: 2023 [id number] Narinder in Stability Quad Mri Surescan [id number] Start: 2023 [id number] Spr int Quattro Secure S [id number] Start: 2023 Goals Date Patient Goal Desired Activity /State Personal health goal Functional Status Date Assessment Result Facility 11-18-2023 Are you deaf, or do you have serious difficulty hearing No 11/18/2023 1:06 PM Lena Holloway, CARO No [facility] 11-18-2023 Are you blind, or do you have serious difficulty seeing, even when wearing glasses No 11/18/2023 1:06 PM Lena Holloway, CARO No [facility] 11-18-2023 Do you have serious difficulty walking or climbing stairs No 11/18/2023 1:06 PM Lena Holloway, CARO No [facility] 11-18-2023 Do you have difficul ty dressing or bathing No 11/18/2023 1:06 PM Lena Holloway, CARO No [facility] 11-18-2023 Because of a physica l, mental, or emotional condition, do you have difficulty doing errands alone such as visiting a physician's office or shopping No 11/18/2023 1:06 PM EDT Lena Lennon RN No [facility] NEGATED: Highlighted row Functional performance Functional status health issues are not documented Disease [facility] [employer] Work Phone: Mental Status Date Assessment Result Facility 11-18-2023 Because of a physical, mental, or emotional condition, do you have serious difficulty concentrating, remembering, or making decisions No 11/18/2023 1:06 PM EDT Lena Lennon RN No [facility] NEGATED: Highlighted row Cognitive function [Interpretation] Cognitive status health issues are not documented Disease [facility] [employer] Work Phone: Clinical Notes 04-27-2020 to 11-13-2024 Note Date & Type Note Facility 11-13-2024 Discharge summary [facility] 11-13-2024 Radiology Diagnostic study note [facility] Imaging Services [address] [place] [address] [id number] Chest without Contrast MR#: [id number] Acct: [id number] Name: SANDRA SCHMITZ Rep #: [id number] : 1945 F 79 From: Julianna Lanza MD PCP: Dr. Mandeep Houser, DO Status: RE G ER Study:Chest without Contrast Date of Exam: 11/13/24 Exam# [id number] Ordering Dr: Mykel Goldberg MD PROCEDURE: CHEST [...] acute finding on noncontrast examination. Reading Location: [id number] CC: Dr. Jose Goldberg MD; Dr. Mandeep Houser DO ~ Cartographic Aide: Signed [facility] 11-13-2024 Radiology Diagnostic study note [facility] Imaging Services [address] [place] [address] [id number] Brain/Head without Contrast MR#: [id number] Acct: [id number] Name: SANDAR SCHMITZ Rep #: [id number] : 1945 F 79 From: Julianna Lanza MD PCP: Dr. Mandeep Houser DO Status: RE G ER Study:Brain/Head without Contrast Date of Exa m: 11/13/24 Exam# [id number] Ordering Dr: Mykel Goldberg MD EXAM: BRAIN/HEAD [...] IMPRESSION: No acute intracranial finding. Reading Location: [facility] CC: Dr. Jose Goldberg MD; Dr. Mandeep Houser DO ~ Cartographic Aide: Signed [facility] 11-13-2024 Radiology Diagnostic study note [facility] Imaging Services [address] [place] [address] Hand Min 3 Views MR#: [id number] Acct: [id number] Name: NADIRSANDRA Rep #: [id number] : 1945 F 79 From: Julianna Lanza MD PCP: Dr. Mandeep Houser DO Status: RE G ER Study:Hand Min 3 Views Date of Exam: 08/05 Exam# [id number] Ordering Dr: Mykel Goldberg MD PROCEDURE: HAND MIN 3 VIEWS 11/13/2024 REASON FOR EXAM: PAIN/INJURY TECHNIQUE: HAND MIN 3 VIEWS, right COMPARISON: None. FINDINGS: Bones: No acute fracture. No aggressive osseous lesions. Joints: Normal alignment. Moderate degenerative changes. Soft tissues: Soft tissues are unremarkable. RAD/Hand Min 3 Views IMPRESSION: DEGENERATIVE OSTEOARTHROSIS. NO ACUTE FINDINGS. Reading Location: [facility] CC: Dr. Jose Goldberg MD; Dr. Mandeep Houser DO ~ Cartographic Aide: Signed [facility] 11-13-2024 Radiology Diagnostic study note [facility] Imaging Services [address] [place], [place] [id number] Chest 1 View (Portable) MR#: [id number] Acct: [id number] Name: SANDRA SCHMITZ Rep #: [id number] : 1945 F 79 From: Julianna Lanza MD PCP: Dr. Mandeep Houser DO Status: RE G ER Study:Chest 1 View (Portable) Date of Exam: 11/13/24 Exam# [id number] Ordering Dr: Mykel Goldberg MD PROCEDURE: CHEST 1 VIEW (PORTABLE) 11/13/2024 REASON FOR EXAM: FALL/INJURY CHEST TECHNIQUE: Frontal view of the chest. COMPARISON: Chest radiograph 03/27/2024. FINDINGS: Hardware: Left chest wall pacemaker in place. Heart: Stable mild cardiomegaly. Lungs: Low lung volumes, [id number]-right. Visualization of the left lung is limited due to overlying pacemaker. No large consolidation, pleural effusion or pneumothorax. Bones: Degenerative changes are identified within the thoracic spine. RAD/Chest 1 View (Portable) IMPRESSION: Cardiomegaly. No acute findings. Reading Location: [facility] CC: Dr. Jose Goldberg MD; Dr. Mandeep Houser DO ~ Cartographic Aide: Signed [facility] 11-13-2024 Discharge summary Note Date/Time November 13, 2024 10:33pm [facility] Medical Records Department [address] [place] [address] Emergency Department Summary 11/13/24 MR#: [id number] Acct: [id number] Name: SANDRA SCHMITZ Rep #:[id number] : 1945 79 From: Jose Goldberg MD [...] anticoagulants but takes a baby aspirin daily. [facility] Medical History Obesity Former [...] % (Auto) Cancelled Lymph % (Auto) Cancelled Reeves % (Auto) Cancelled Eos % (Auto) Cancelled [...] Drop Cells Cancelled Ovalocytes Cancelled Stomatocytes Cancelled Lua-[place] Bodies Cancelled Rocky Cells Cancelled Bite Cells [...] Clarity Clear Urine pH 6.5 Ur Specific [place] 1.010 Urine Protein 15 H Urine Glucose [...] % (Auto) 61.4 Lymph % (Auto) 26.8 Reeves % (Auto) 8.8 Eos % (Auto) 1.3 [...] Target Cells Tear Drop Cells Ovalocytes Stomatocytes [place] Bodies Rocky Cells Bite Cells Crenated Cell Acanthocytes (Spur) Rouleaux Schistocytes Sodium Potassium Chloride Carbon Dioxide Anion Gap BUN Creatinine Estim Creat Clear Calc Est GFR (MDRD) Non-Af BUN/Creatinine Ratio Glucose Calcium Urine Color Urine Clarity Urine pH Ur Specific [place] Urine Protein Urine Glucose (UA) Urine Ketones Urine Occult Blood Urine Nitrite Urine Bilirubin Urine Urobilinogen Ur Leukocyte Esterase Urine RBC Urine WBC Ur Squamous Epith Cells Urine Bacteria Urine Mucus Radiography Diagnostic Testing: Clinical Impression(s) from Imaging Studies Chest X-Ray 11/13/24 18:45 IMPRESSION: Cardiomegaly. No acute findings. Reading Location: [facility] Hand X-Ray 11/13/24 18:46 IMPRESSION: DEGENERATIVE OSTEOARTHROSIS. NO ACUTE FINDINGS. Reading Location: [facility] Brain CT 11/13/24 19:57 IMPRESSION: No acute intracranial finding. Reading Location: [facility] Chest CT 11/13/24 19:57 IMPRESSION: Visualization is limited by motion artifact and streak artifact from left chest wall pacemaker. No acute finding on noncontrast examination. Reading Location: [facility] Rhythm Strip Rhythm Strip: Sinus Rhythm Rate: [...] is an option for this. Print Language: Yi Disposition Disposition: Home, Self Care What to do if you have Problems For any increased pain, shortness of breath, bleeding, nausea or vomiting, chestpain, or any unexpected problems, contact your Primary Care Provider. Call [facility] ([phone]) or report to the closest Emergency Room. Call 911 if necessary. 11/13/242232 <Electronically signed by Jose Goldberg MD> Cosigner Signature (if applicable): CC: Dr. Mandeep Houser DO ~ Signed [facility] Work Phone: 1(359) 919-875906-25-2025 NoteHNO ID: [id number] Author: CHASIDY LYN MA Service: ? Author Type: Repairer Sash And Door Type: Progress Notes Filed: 11/05/2024 14:20 Note [...] Chasidy Lyn MA November 05, 2024 2:18 [facility] History of Present illness Narrative* Chasidy Lyn [...] 05, 2024 2:18 PM documented in this encounterSelect [facility] [place]06-25-2025 NotePatient Outreach (NETNAV) SANDRA SCHMITZ ([id number]) 1945 F Date Time Provider Department 11/05/24 [...] Health Navigation Outreach [[id number]] [facility] Prescriptions as of 11/05/2024 - metoprolol [...] right [M19.071] 08/02/2022 Coronary artery disease involving benton lopez*08/02/2022 Vitamin D deficiency [E55.9] 08/02/2022 Somatic dysfunction of head region [M99.00] 08/10/2022 Chronic neck pain [M54.2, G89.29] 08/24/2022 Chronic bronchitis (HCC) [J42] 09/11/2022 SVT (suprave (more content not included)...[facility]06-23-2025 NoteHNO ID: [id number] Author: DILCIA HOOKS MA Service: ? Author Type: Repairer Sash And Door Type: Progress Notes Filed: 11/03/2024 15:58 Note Text: EVENT MONITOR DISPOSABLE PATCH INSTRUCTIONS Patient Name: Sandra Schmitz [facility] Number: [id number] Skin prepped and cleansed with alcohol Patch secured to prepped area Monitor Activated Serial #: [id number] Patient Instructed: Prescribed order timeframe Bathing guidelines Usage of event button and diary documentation Return of monitor at the end of prescribed order Call with problems [phone] or [phone]. [phone] Patient expresses a good understanding of instructions Dilcia Hooks [facility]06-23-2025 History of Present illness Narrative* Dilcia Hooks MA - 11/03/2024 3:57 PM EDT EVENT MONITOR DISPOSABLE PATCH INSTRUCTIONS Patient Name: Sandra Schmitz [facility] Number: [id number] Skin prepped and cleansed with alcohol Patch secured to prepped area Monitor Activated Serial #: [id number] Patient Instructed: Prescribed order timeframe Bathing guidelines Usage of event button and diary documentation Return of monitor at the end of prescribed order Call with problems [phone] or [phone]. [phone] Patient expresses a good understanding of instructions Dilcia Hooks MA documented in this encounterSelect Medical Specialty [facility] [place]06-23-2025 History of Present illness Narrative* HillMorenita youMELI.MEDICAL SCIENTIST - 11/03/2024 3:30 PM EDT Images from the original note were not included. [facility] [place] [facility] Department of Cardiovascular Medicine SECTION OF ELECTROPHYSIOLOGY AND PACING OUTPATIENT VISIT DATE November 03, 2024 OUTPATIENT VISIT TYPE ESTABLISHED PRIMARY CARE PHYSICIAN: Mandeep Houser [address] [place] [address] CHIEF COMPLAINT: Follow Up HISTORY OF PRESENT ILLNESS: Ms. Schmitz is a 79 year old female, patient of Dr. Wellington and Dr. Wells who presents today for a cardiovascular medicine follow-up visit regarding DISTRICT FIRE MANAGEMENT OFFICER-D which was placed in July of last year during which time she had been admitted to [facility] for acute HFrEF and inability to initiate GDMT. She was deemed excellent candidate for DISTRICT FIRE MANAGEMENT OFFICER therapy and thus had MDT DISTRICT FIRE MANAGEMENT OFFICER-D inserted. Since then, Ms. Schmitz reports that overall she has been feeling well. She has noted over the last several months that when shh is anxious or rushing, she may feel her heart racing with some palpitations. When she rests, symptoms resolve. Overall, since device insertion, she has significantly improved functional capacity. She is compliant with all medications. PMH: Chronic NICM s/p MDT DISTRICT FIRE MANAGEMENT OFFICER-D, dyslipidemia, hypothyroidism, Factor V Leiden, IBS, h/o gout PAST MEDICAL HISTORY Diagnosis Date Acute acalculous cholecystitis 05/30/2020 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 09/22/2020 Acute on chronic systolic CHF (congestive heart failure) ([facility]) 05/03/2020 Aspiration pneumonia ([facility]) 05/30/2020 Chest pain 05/03/2020 Chest pressure [...] Testing. IMPRESSION/PLAN: Chronic Non-ischemic cardiomyopathy s/p MDT DISTRICT FIRE MANAGEMENT OFFICER-D (07/2023) ECG today demonstrates atrial sensed, ventricular [...] SGL2i: N/A due to intolerance Device: MDT DISTRICT FIRE MANAGEMENT OFFICER-D (BiV pacing 87.1%) Will contact patient with results and plan. Will arrange for 6 month follow up with DR. Wellington withdevice check prior. If BiVP is optimized, then can extend to annual follow up. CONTACT INFORMATION: Morenita Hill APRN.TIM Cardiology [address] [facility] [address] [facility] [address] Dept: [phone] Dept documented in this encounterSelect Medical Specialty [facility]06-23-2025 NoteHNO ID: [id number] Author: MORENITA HILL APRN.TIM Service: ? Author Type: Nurse Practitioner Type: Progress Notes Filed: 11/03/2024 15:59 Note Text: [facility] [place] [facility] Department of Cardiovascular Medicine SECTION OF ELECTROPHYSIOLOGY AND PACING OUTPATIENT VISIT DATE November 03, 2024 OUTPATIENT VISIT TYPE ESTABLISHED PRIMARY CARE PHYSICIAN: Mandeep Houser [address] [place] [address] CHIEF COMPLAINT: Follow Up HISTORY OF PRESENT ILLNESS: Ms. Schmitz is a 79 year old female, patient of Dr. Wellington and Dr. Wells who presents today for a cardiovascular medicine follow-up visit regarding DISTRICT FIRE MANAGEMENT OFFICER-D which was placed in July of last year during which time she had been admitted to [facility] for acute HFrEF and inability to initiate GDMT. She was deemed excellent candidate for DISTRICT FIRE MANAGEMENT OFFICER therapy and thus had MDT DISTRICT FIRE MANAGEMENT OFFICER-D inserted. Since then, Ms. Schmitz reports that overall she has been feeling well. She has noted over the last several months that when shh is anxious or rushing, she may feel her heart racing with some palpitations. When she rests, symptoms resolve. Overall, since device insertion, she has significantly improved functional capacity. She is compliant with all medications. PMH: Chronic NICM s/p MDT DISTRICT FIRE MANAGEMENT OFFICER-D, dyslipidemia, hypothyroidism, Factor V Leiden, IBS, h/o gout PAST MEDICAL HISTORY Diagnosis Date Acute acalculous cholecystitis 05/30/2020 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 09/22/2020 Acute on chronic systolic CHF (congestive heart failure) ([facility]) 05/03/2020 Aspiration pneumonia ([facility]) 05/30/2020 Chest pain 05/03/2020 Chest pressure 01/23/2013 Chronic diastolic congestive heart failure ([facility]) 02/14/2021 Clostridium difficile diarrhea 09/28/2020 Complete uterovaginal prolapse Cystocele, midline Essential hypertension 06/14/2020 Homozygous Factor V Leiden mutation ([facility]) 05/03/2020 Hypothyroidism IBS (irritable bowel syndrome) [...] capsule by mouth thre (more content not included)...[facility]06-23-2025 NoteHNO ID: [id number] Author: PILI WELLS MD Service: ? Author Type: Physician Type: Progress Notes Filed: 11/09/2024 17:30 Note Text: [facility] SECTION OF HEART FAILURE and CARDIAC TRANSPLANT MEDICINE [facility] OUTPATIENT VISIT DATE November 03, 2024 OUTPATIENT VISIT TYPE Established PRIMARY CARE PHYSICIAN: Mandeep Houser [address] [place] [address] CHIEF COMPLAINT: Follow Up HISTORY OF PRESENT ILLNESS: Sandra Schmitz is a 78 year old female with a medical history that includes non-ischemic CM, HTN, Hypothyroidism, LBBB 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 who is referred to me for heart failure management. Sandra Schmitz was initially diagnosed with non-ischemic CM ~ 4 yrs ago and was doing well on losartan and metoprolol. She had progressive sxs of dyspnea on exertion, therefore she was started on entresto and farxiga and her sxs persisted and she was admitted locally in [place] and then transferred to for DISTRICT FIRE MANAGEMENT OFFICER consideration. Interval History: Sandra Schmitz was last [...] LVEF 40%, LVEdd 4.8cm. LBBB: chronic. S/p DISTRICT FIRE MANAGEMENT OFFICER 07/2023 Non-obstructive CAD: stable, ischemic testing recently [...] pressure 01/23/2013 Chronic diastolic congestive heart failure ([facility]) 02/14/2021 Clostridium difficile diarrhea 09/28/2020 Complete [...] Short of breath, sympto (more content not included)...[facility] 11-03-2024 History of Present illness Narrative* Pili Wells MD - 11/03/2024 2:17 PM EDT Images from the original note were not included. [facility] SECTION OF HEART FAILURE and CARDIAC TRANSPLANT MEDICINE [facility] OUTPATIENT VISIT DATE November 03, 2024 OUTPATIENT VISIT TYPE Established PRIMARY CARE PHYSICIAN: Mandeep Houser [address] [place] [address] CHIEF COMPLAINT: Follow Up HISTORY OF PRESENT ILLNESS: Sandra Schmitz is a 78 year old female with a medical history that includes non-ischemic CM, HTN, Hypothyroidism, LBBB 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 who is referred to me for heart failure management. Sandra Schmitz was initially diagnosed with non-ischemic CM ~ 4 yrs ago and was doing well on losartan and metoprolol. She had progressive sxs of dyspnea on exertion, therefore she was started on entresto and farxiga and her sxs persisted and she was admitted locally in [place] and then transferredto for DISTRICT FIRE MANAGEMENT OFFICER consideration. Interval History: Sandra Schmitz was last [...] LVEF 40%, LVEdd 4.8cm. LBBB: chronic. S/p DISTRICT FIRE MANAGEMENT OFFICER 07/2023 Non-obstructive CAD: stable, ischemic testing recently with no ischemia or infarction. 06/2023 Nuc SPECT: no ischemia or infarction. 10/2021 Cath: mod LAD, D1 prox 40%, mild RCA disease dominant, EF 35%. Hx of HTN: PAST MEDICAL HISTORY Diagnosis Date Acute acalculous cholecystitis 05/30/2020 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 09/22/2020 Acute on chronic systolic CHF (congestive heart failure) ([facility]) 05/03/2020 Aspiration pneumonia ([facility]) 05/30/2020 Chest pain 05/03/2020 Chest pressure 01/23/2013 Chronic diastolic congestive heart failure ([facility]) 02/14/2021 Clostridium difficile diarrhea 09/28/2020 Complete uterovaginal prolapse Cystocele, midline Essential hypertension 06/14/2020 Homozygous Factor V Leiden mutation ([facility]) 05/03/2020 Hypothyroidism IBS (irritable bowel syndrome) [...] to tingling/BADILLO - Vasodilators: no - Device: DISTRICT FIRE MANAGEMENT OFFICER-D - Cardiomems: no - Other: lasix 20mg [...] above. Continues to report symptomatic improvement with DISTRICT FIRE MANAGEMENT OFFICER. Echo 08/2023 reviewed - LVEF remains low, LV not as dilated, MR improved as well. + LVH GDMT: as above, increase toprol XL to 50mg daily Labs 07/08/24 reviewed: K 4.9, Cr 0.85, NT pro 2.1K Due to suboptimal DISTRICT FIRE MANAGEMENT OFFICER pacing increase toprol XL to 50mg daily --> seeing EP after this appointment. Discussed amyloid testing as well --> she doesn't wish to pursue currently 2. Non-obsctructive CAD: on aspirin and toprol as above On aspirin 81mg daily, not on statin - reports intolerance. 3. PVCs; LBBB 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 -- suboptimal DISTRICT FIRE MANAGEMENT OFFICER pacing: increasing toprol XL given PVCs on [...] Wells MD Advanced Heart Failure and Transplant Director Of [facility] [place] [address] Appointment: [phone] documented in this encounterSelect Medical [facility]ty [facility]06-23-2025 Instructions* Patient Instructions* Pili Wells MD - [...] and weight daily. Please notify us via [employer] if your Systolic BP (top number) < [...] heart kidney injury risk Please send a [employer] message or call with any questions or concerns: Outpatient Number: [phone] Thank you, Pili Wells MD Advanced Heart Failure and Transplant Director Of Curriculum [address], [place] [address] For [facility] patients , contact: [facility]- Section Of Heart Failure and Cardiac Transplant Medicine [facility] - Desk [phone] [phone] [facility] Nurse Line and for Refills- call [phone] [facility] Scheduling Line- to make appointments- call [phone] documented in this encounterSelect Medical Specialty [facility] [place]06-10-2025 NoteHNO ID: [id number] Author: MANDEEP HOUSER, DO Service: ? Author [...] on chronic systolic CHF (congestive heart failure) ([facility]) 05/03/2020 Aspiration pneumonia ([facility]) 05/30/2020 Chest pain 05/03/2020 Chest pressure 01/23/2013 Chronic diastolic congestive heart failure ([facility]) 02/14/2021 Clostridium difficile diarrhea 09/28/2020 Complete uterovaginal prolapse Cystocele, midline Essential hypertension 06/14/2020 Homozygous Factor V Leiden mutation ([facility]) 05/03/2020 Hypothyroidism IBS (irritable bowel syndrome) [...] right head, [id number] Right (more content not included)...[facility]06-10-2025 History of Present illness Narrative* Mandeep [...] on chronic systolic CHF (congestive heart failure) ([facility]) 05/03/2020 Aspiration pneumonia ([facility]) 05/30/2020 Chest pain 05/03/2020 Chest pressure 01/23/2013 Chronic diastolic congestive heart failure ([facility]) 02/14/2021 Clostridium difficile diarrhea 09/28/2020 Complete uterovaginal prolapse Cystocele, midline Essential hypertension 06/14/2020 Homozygous Factor V Leiden mutation ([facility]) 05/03/2020 Hypothyroidism IBS (irritable bowel syndrome) [...] plan. See patient instructions. Mandeep Houser DO [address] [place] [address] documented in this encounterSelect Medical Specialty [facility]05-20-2025 NoteHNO ID: [id number] Author: MANDEEP HOUSER DO Service: ? Author [...] on chronic systolic CHF (congestive heart failure) ([facility]) 05/03/2020 Aspiration pneumonia ([facility]) 05/30/2020 Chest pain 05/03/2020 Chest pressure 01/23/2013 Chronic diastolic congestive heart failure ([facility]) 02/14/2021 Clostridium difficile diarrhea 09/28/2020 Complete uterovaginal prolapse Cystocele, midline Essential hypertension 06/14/2020 Homozygous Factor V Leiden mutation ([facility]) 05/03/2020 Hypothyroidism IBS (irritable bowel syndrome) [...] leg Right lower leg (more content not included)...[facility] 09-15-2024 NoteHNO ID: [id number] Author: DORINDA YOUNG MA Service: ? Author Type: Repairer Sash And Door Type: Progress Notes Filed: 09/15/2024 12:40 Note Text: POPULATION HEALTH NAVIGATION OUTREACH Action/FYI Called and left a message to call [phone], to discuss health maintenance items that are [...] Called and left a message to call [phone], to discuss health maintenance items that are [...] HCC related Updated appointment notes Navigation Signature: oDrinda Young MA September 15, 2024 12:39 PM documented in this encounterSelect Medical Specialty [facility]05-05-2025 NotePatient Outreach (NETNAV) SANDRA SCHMITZ ([id number]) 1945 F Date Time Provider Department 09/15/24 DORINDA YOUNG During your visit today, we recorded the following information about you: Dorinda Young MA 09/15/2024 12:40 PM Addendum POPULATION HEALTH NAVIGATION OUTREACH Action/MARIVEL Called and left a message to call [phone], to discuss health maintenance items that are [...] right [M19.071] 08/02/2022 Coronary artery disease involving benton lopez*08/02/2022 Vitamin D deficiency [E55.9] 08/02/2022 Somatic dysfunction of head region [M99.00] 08/10/2022 Chronic neck pain [M54.2, G89.29] 08/24/2022 Chronic bronchitis (HCC) [J42] 09/11/2022 SVT (supraventricular tachycardia) (HCC) [I47.1*09/11/2022 Combined systolic and diastolic cardi (more content not included)...[facility]04-17-2025 NoteHNO ID: [id number] Author: MANDEEP HOUSER, DO Service: ? Author [...] on chronic systolic CHF (congestive heart failure) ([facility]) 05/03/2020 Aspiration pneumonia ([facility]) 05/30/2020 Chest pain 05/03/2020 Chest pressure 01/23/2013 Chronic diastolic congestive heart failure ([facility]) 02/14/2021 Clostridium difficile diarrhea 09/28/2020 Complete uterovaginal prolapse Cystocele, midline Essential hypertension 06/14/2020 Homozygous Factor V Leiden mutation ([facility]) 05/03/2020 Hypothyroidism IBS (irritable bowel syndrome) [...] ankle arthrosis bracing ASSESSMENT/PLAN: (more content not included)...[facility]04-17-2025 History of Present illness Narrative* Mandeep [...] on chronic systolic CHF (congestive heart failure) ([facility]) 05/03/2020 Aspiration pneumonia ([facility]) 05/30/2020 Chest pain 05/03/2020 Chest pressure 01/23/2013 Chronic diastolic congestive heart failure ([facility]) 02/14/2021 Clostridium difficile diarrhea 09/28/2020 Complete uterovaginal prolapse Cystocele, midline Essential hypertension 06/14/2020 Homozygous Factor V Leiden mutation ([facility]) 05/03/2020 Hypothyroidism IBS (irritable bowel syndrome) [...] See patient instructions. Mandeep Houser DO [address] [place] [address] documented in this encounterSelect Medical Specialty [facility]04-16-2025 Miscellaneous Notes* Telephone Encounter - Radha Buchanan - 08/27/2024 10:22 AM EDT Call to patient to r/s. Patient is driving out from [place] and would prefer all appointments same day as Dr. Wells. Rescheduled to Friday 11/03 with device check, OV with Morenita Hill and Dr. Wells. * Telephone Encounter - Radha Buchanan - 08/27/2024 10:21 AM EDT ----- Message from Dilcia Bonilla MD sent at 08/23/2024 9:30 AM EDT ----- I saw her in '24 Please reschedule with Mercedes + device documented in this encounterSelect Medical Specialty [facility]04-16-2025 Telephone encounter Note * Telephone Encounter - Radha Buchanan - 08/27/2024 10:22 AM EDT Call to patient to r/s. Patient is driving out from [place] and would prefer all appointments same day as Dr. Wells. Rescheduled to Friday 11/03 with device check, OV with Morenita Hill and Dr. Wells. [facility]04-16-2025 Telephone encounter Note* Telephone Encounter - Radha Buchanan - 08/27/2024 10:21 AM EDT ----- Message from Dilcia Bonilla MD sent at 08/23/2024 9:30 AM EDT ----- I saw her in '24 Please reschedule with Mercedes + device [facility]04-14-2025 Instructions* Patient Instructions* Mandeep Houser DO - 08/25/2024 4:32 PM EDT Magnesium glycinate 250-500 mg in the evening with supper Use as a capsule or powder or tablet To help muscles documented in this encounterSelect Medical Specialty [facility]03-25-2025 NoteHNO ID: [id number] Author: MANDEEP HOUSER DO Service: ? Author [...] pain - ICD (more content not included)... [facility]03-25-2025 History of Present illness Narrative* Mandeep [...] on chronic systolic CHF (congestive heart failure) ([facility]) 05/03/2020 Aspiration pneumonia ([facility]) 05/30/2020 Chest pain 05/03/2020 Chest pressure 01/23/2013 Chronic diastolic congestive heart failure ([facility]) 02/14/2021 Clostridium difficile diarrhea 09/28/2020 Complete uterovaginal prolapse Cystocele, midline Essential hypertension 06/14/2020 Homozygous Factor V Leiden mutation ([facility]) 05/03/2020 Hypothyroidism IBS (irritable bowel syndrome) [...] See patient instructions. Mandeep Houser DO [address] [place] [address] documented in this encounterSelect [facility]ty [facility]03-10-2025 NoteHNO ID: [id number] Author: MANDEEP HOUSER DO Service: ? Author [...] October Would like to have her medical screedman/laborer more local for better accessibility She had labs and a chest xray Currently Cough, chest congestion, symptoms are improved. Just still with some fatigue but seems to be getting better. No further cough, no sputum production, no fevers or chills. Heart failure. Has an echo to get scheduled and completed for the screedman/laborer, taking her medications as prescribed. PAST MEDICAL HISTORY Diagnosis Date Acute acalculous cholecystitis 05/30/2020 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 09/22/2020 Acute on chronic systolic CHF (congestive heart failure) ([facility]) 05/03/2020 Aspiration pneumonia ([facility]) 05/30/2020 Chest pain 05/03/2020 Chest pressure 01/23/2013 Chronic diastolic congestive heart failure ([facility]) 02/14/2021 Clostridium difficile diarrhea 09/28/2020 Complete uterovaginal prolapse Cystocele, midline Essential hypertension 06/14/2020 Homozygous Factor V Leiden mutation ([facility]) 05/03/2020 Hypothyroidism IBS (irritable bowel syndrome) [...] EOMs intact b/l, na (more content not included)...[facility]03-10-2025 History of Present illness Narrative* Mandeep [...] October Would like to have her medical screedman/laborer more local for better accessibility She had labs and a chest xray Currently Cough, chest congestion, symptoms are improved. Just still with some fatigue but seems to be getting better. No further cough, no sputum production, no fevers or chills. Heart failure. Has an echo to get scheduled and completed for the screedman/laborer, taking her medications as prescribed. PAST MEDICAL HISTORY Diagnosis Date Acute acalculous cholecystitis 05/30/2020 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 09/22/2020 Acute on chronic systolic CHF (congestive heart failure) ([facility]) 05/03/2020 Aspiration pneumonia (HCC) 05/30/2020 Chest [...] 428.0, ICD10: I50.42 - chronic, managed by Director Of Curriculum 7. Vitamin D deficiency - ICD9: 268.9, ICD10: E55.9 Increase dose of supplement as d/w her today Mandeep Houser DO Return if no improvement. Follow up with Mandeep Houser DO. To ER if develops chest pain, shortness of breath. Discussed risks, benefits, alternatives, and potential side effects of medications. Patient/Guardian expressed understanding and agreed with the plan. See patient instructions. Mandeep Houser DO [address] [place] [address] documented in this encounterSelect Medical Specialty Hospital [facility] [place]02-25-2025 History of Present illness Narrative* Boone Neumann [...] PATIENT PRESENTS WITH AN IMPLANTABLE OR ATTACHED ROLLING CHAIR PUSHER: No RADIOLOGY DEPARTMENT: General X-ray: Exam(s) Completed: Chest X-Ray PERIPHERAL IV DATA: Not applicable SIGNED BY: Marino Arevalo July 08, 2024 3:31 PM documented in this encounterSelect Medical Specialty Hospital [facility] [place]02-25-2025 NoteHNO ID: [id number] Author: BOONE NEUMANN Tech Service: ? Author [...] PATIENT PRESENTS WITH AN IMPLANTABLE OR ATTACHED ROLLING CHAIR PUSHER: No RADIOLOGY DEPARTMENT: General X-ray: Exam(s) Completed: Chest X-Ray PERIPHERAL IV DATA: Not applicable SIGNED BY: Marino Arevalo July 08, 2024 3:31 [facility]02-25-2025 NoteHNO ID: [id number] Author: MANDEEP HOUSER, DO Service: ? Author [...] October Would like to have her medical screedman/laborer more local for better accessibility PAST MEDICAL HISTORY Diagnosis Date Acute acalculous cholecystitis 05/30/2020 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 09/22/2020 Acute on chronic systolic CHF (congestive heart failure) ([facility]) 05/03/2020 Aspiration pneumonia ([facility]) 05/30/2020 Chest pain 05/03/2020 Chest pressure 01/23/2013 Chronic diastolic congestive heart failure (HCC) 02/14/2021 Clostridium difficile diarrhea 09/28/2020 Complete uterovaginal prolapse Cystocele, midline Essential hypertension 06/14/2020 Homozygous Factor V Leiden mutation ([facility]) 05/03/2020 Hypothyroidism IBS (irritable bowel syndrome) [...] (primary diagnosis) Injection o (more content not included)...[facility]02-25-2025 History of Present illness Narrative* Mandeep Houser, DO - 07/08/2024 2:56 PM EST CC: Snadra Schmitz is a 78 year old female [...] October Would like to have her medical screedman/laborer more local for better accessibility PAST MEDICAL HISTORY Diagnosis Date Acute acalculous cholecystitis 05/30/2020 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 09/22/2020 Acute on chronic systolic CHF (congestive heart failure) ([facility]) 05/03/2020 Aspiration pneumonia ([facility]) 05/30/2020 Chest pain 05/03/2020 Chest pressure 01/23/2013 Chronic diastolic congestive heart failure ([facility]) 02/14/2021 Clostridium difficile diarrhea 09/28/2020 Complete uterovaginal prolapse Cystocele, midline Essential hypertension 06/14/2020 Homozygous Factor V Leiden mutation ([facility]) 05/03/2020 Hypothyroidism IBS (irritable bowel syndrome) [...] chronic, recheck labs Check CXR F/u with Director Of Curriculum - NT PRO BNP - COMPLETE BLOOD [...] plan. See patient instructions. Mandeep Houser DO [address] [place] [address] documented in this encounterSelect Medical Specialty [facility] [place]02-25-2025 Instructions* Patient Instructions* Mandeep Houser DO - 07/08/2024 2:50 PM EST Director Of Curriculum local options Dr.Sleik Dr. Downs Options for mood Low dose of valerian root 250-500 mg in the evening Light box therapy consideration of light at 10,000 Lux strength- 20-30 minutes a day in the AM fromFeb through August to help mood, can buy this on [employer] for use documented in this encounterSelect Medical Specialty [facility] [place]02-18-2025 Telephone encounter Note * Telephone Encounter - Mandeep Houser DO - 07/01/2024 12:19 PM EST The following approved medication requests have been transmitted electronically. Requested Prescriptions Signed Prescriptions Disp Refills doxycycline (VIBRA-TABS) 100 mg tablet 20 tablet 0 Sig: Take 1 tablet by mouth two times a day for 10 days. Authorizing Provider: MANDEEP HOUSER DO [facility] [place]02-18-2025 Miscellaneous Notes* Telephone Encounter - Mandeep Houser DO - 07/01/2024 12:19 PM EST The following approved medication requests have been transmitted electronically. Requested Prescriptions Signed Prescriptions Disp Refills doxycycline (VIBRA-TABS) 100 mg tablet 20 tablet 0 Sig: Take 1 tablet by mouth two times a day for 10 days. Authorizing Provider: MANDEEP HOUSER DO documented in this encounterSelect Medical Specialty [facility] [place]02-07-2025 NoteHNO ID: [id number] Author: MANDEEP HOUSER DO Service: ? Author [...] on chronic systolic CHF (congestive heart failure) ([facility]) 05/03/2020 Aspiration pneumonia ([facility]) 05/30/2020 Chest pain 05/03/2020 Chest pressure 01/23/2013 Chronic diastolic congestive heart failure (HCC) 02/14/2021 Clostridium difficile diarrhea 09/28/2020 Complete uterovaginal prolapse Cystocele, midline Essential hypertension 06/14/2020 Homozygous Factor V Leiden mutation ([facility]) 05/03/2020 Hypothyroidism IBS (irritable bowel syndrome) [...] pain - ICD (more content not included)... [facility]02-07-2025 History of Present illness Narrative* Mandeep [...] on chronic systolic CHF (congestive heart failure) ([facility]) 05/03/2020 Aspiration pneumonia ([facility]) 05/30/2020 Chest pain 05/03/2020 Chest pressure 01/23/2013 Chronic diastolic congestive heart failure ([facility]) 02/14/2021 Clostridium difficile diarrhea 09/28/2020 Complete [...] plan. See patient instructions. Mandeep Houser DO [address] [place] [address] documented in this encounterSelect Medical Specialty [facility] [place]01-17-2025 NoteHNO ID: [id number] Author: MANDEEP HOUSER DO Service: ? Author [...] pressure 01/23/2013 Chronic diastolic congestive heart failure ([facility]) 02/14/2021 Clostridium difficile diarrhea 09/28/2020 Complete uterovaginal prolapse Cystocele, midline Essential hypertension 06/14/2020 Homozygous Factor V Leiden mutation ([facility]) 05/03/2020 Hypothyroidism IBS (irritable bowel syndrome) [...] neurovascular tone of ar (more content not included)...[facility]01-17-2025 History of Present illness Narrative* Mandeep [...] on chronic systolic CHF (congestive heart failure) ([facility]) 05/03/2020 Aspiration pneumonia ([facility]) 05/30/2020 Chest pain 05/03/2020 Chest pressure 01/23/2013 Chronic diastolic congestive heart failure ([facility]) 02/14/2021 Clostridium difficile diarrhea 09/28/2020 Complete uterovaginal prolapse Cystocele, midline Essential hypertension 06/14/2020 Homozygous Factor V Leiden mutation ([facility]) 05/03/2020 Hypothyroidism IBS (irritable bowel syndrome) [...] plan. See patient instructions. Mandeep Houser DO [address] [place] [address] documented in this encounterSelect Medical Specialty [facility] [place]12-30-2024 NoteHNO ID: [id number] Author: MANDEEP HOUSER DO Service: ? Author [...] on chronic systolic CHF (congestive heart failure) ([facility]) 05/03/2020 Aspiration pneumonia ([facility]) 05/30/2020 Chest pain 05/03/2020 Chest pressure 01/23/2013 Chronic diastolic congestive heart failure ([facility]) 02/14/2021 Clostridium difficile diarrhea 09/28/2020 Complete uterovaginal prolapse Cystocele, midline Essential hypertension 06/14/2020 Homozygous Factor V Leiden mutation ([facility]) 05/03/2020 Hypothyroidism IBS (irritable bowel syndrome) [...] - ICD9: 724.1, 338.29, (more content not included)...[facility]12-30-20[facility] History of Present illness Narrative* Mandeep [...] on chronic systolic CHF (congestive heart failure) ([facility]) 05/03/2020 Aspiration pneumonia ([facility]) 05/30/2020 Chest pain 05/03/2020 Chest pressure 01/23/2013 Chronic diastolic congestive heart failure ([facility]) 02/14/2021 Clostridium difficile diarrhea 09/28/2020 Complete uterovaginal prolapse Cystocele, midline Essential hypertension 06/14/2020 Homozygous Factor V Leiden mutation ([facility]) 05/03/2020 Hypothyroidism IBS (irritable bowel syndrome) [...] See patient instructions. Mandeep Houser DO [address] [place] [address] documented in this encounterSelect Medical [facility] [place]12-10-2024 NoteHNO ID: [id number] Author: MANDEEP HOUSER DO Service: ? Author [...] on chronic systolic CHF (congestive heart failure) ([facility]) 05/03/2020 Aspiration pneumonia ([facility]) 05/30/2020 Chest pain 05/03/2020 Chest pressure [...] fullness right head, C3-5 (more content not included)...[facility]12-10-2024 History of Present illness Narrative* Mandeep [...] on chronic systolic CHF (congestive heart failure) ([facility]) 05/03/2020 Aspiration pneumonia ([facility]) 05/30/2020 Chest pain 05/03/2020 Chest pressure 01/23/2013 Chronic diastolic congestive heart failure ([facility]) 02/14/2021 Clostridium difficile diarrhea 09/28/2020 Complete uterovaginal prolapse Cystocele, midline Essential hypertension 06/14/2020 Homozygous Factor V Leiden mutation ([facility]) 05/03/2020 Hypothyroidism IBS (irritable bowel syndrome) [...] See patient instructions. Mandeep Houser DO [address] [place] [address] documented in this encounterSelect Medical [facility] [place]11-26-2024 Telephone encounter Note * Telephone Encounter - [...] Pennington LPN April 08, 2024 9:26 AM [facility]11-26-2024 Miscellaneous Notes* Telephone Encounter - Mane Pennington [...] 08, 2024 9:26 AM documented in this encounterSelect Medical Specialty [facility] [place]11-11-2024 Telephone encounter Note * Telephone Encounter - Phyllis Levin MA - 03/24/2024 9:51 AM EST Pt notified. Phyllis Levin MA [facility]11-11-2024 Miscellaneous Notes* Telephone Encounter - Phyllis Levin [...] can send the Rx? documented in this encounterSelect Medical Specialty [facility] [place]11-08-2024 Telephone encounter Note * Telephone Encounter - Mandeep Houser DO - 03/21/2024 5:06 PM EST The following approved medication requests have been transmitted electronically. Requested Prescriptions Signed Prescriptions Disp Refills doxycycline (VIBRA-TABS) 100 mg tablet 20 tablet 0 Sig: Take 1 tablet by mouth two times a day for 10 days. Authorizing Provider: MANDEEP HOUSER DO [facility]11-08-2024 Telephone encounter Note* Telephone Encounter - Sanjeev Carpio RN - 03/21/2024 11:15 AM EST Patient reports she saw pcp on 03-18-24 for OMT. Reports pcp was going to call in AB to [facility], for her scratchy throat, sinus drainage, pt could take if the s/s continue. Reports Joanna Cleaning never recv'd the Rx. Asking if pcp can send the Rx? [facility]10-24-2024 Telephone encounter Note* Telephone Encounter - Sanjeev Carpio RN - 03/06/2024 2:23 PM EDT Pt returned call and given provider's message below with verbalized understanding. [facility]10-24-2024 Miscellaneous Notes* Telephone Encounter - Sanjeev Carpio [...] stable Mandeep Houser DO documented in this encounterSelect Medical Specialty [facility] [place]10-24-2024 Telephone encounter Note * Telephone Encounter - Meena Brown LPN - 03/06/2024 10:20 AM EDT Left message to return call. [facility]24 Telephone encounter Note* Telephone Encounter - Mandeep Houser DO - 03/05/2024 10:33 PM EDT Please call patient and let her know that her recent thyroid labs are all stable Mandeep Houser DO [facility]10-[facility]-2024 NoteHNO ID: [id number] Author: MANDEEP HOUSER DO Service: ? Author [...] 09/07/2020 Laparoscopic cholecystectomy with intraoperative cholangiograms. Dr. [place] Current Outpatient Medications Medication Sig losartan (COZAAR) [...] ICD10: E03.9 (primary diagnos (more content not included)...[facility]10-01-2024 History of Present illness Narrative* Mandeep [...] on chronic systolic CHF (congestive heart failure) ([facility]) 05/03/2020 Aspiration pneumonia ([facility]) 05/30/2020 Chest pain 05/03/2020 Chest pressure 01/23/2013 Chronic diastolic congestive heart failure ([facility]) 02/14/2021 Clostridium difficile diarrhea 09/28/2020 Complete uterovaginal prolapse Cystocele, midline Essential hypertension 06/14/2020 Homozygous Factor V Leiden mutation ([facility]) 05/03/2020 Hypothyroidism IBS (irritable bowel syndrome) [...] agreed with the plan. See patient instructions. aMndeep Houser DO [address] [place] [address] documented in this encounterSelect Medical Specialty [facility]09-26-2024 NoteHNO ID: [id number] Author: ANGEL CASTRO DO Service: ? Author Type: Physician Type: Progress Notes Filed: 02/07/2024 14:40 Note Text: Heart and Vascular [facility] [place] [facility] Department of Cardiovascular Medicine SECTION OF [facility] CARDIOLOGY/[facility] OUTPATIENT VISIT DATE February 07, 2024 OUTPATIENT VISIT TYPE ESTABLISHED PATIENT Name: Sandra Schmitz : 1945 Date: February 07, 2024 PRIMARY CARE PHYSICIAN: Mandeep Houser [address] [place] [address] REFERRING PHYSICIAN: No referring provider defined for this encounter. CHIEF COMPLAINT: Patient presents with: CARD Follow Up 3 Month: PMH: non-ischemic CM, HTN, Hypothyroidism, LBBB 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 IMPRESSION / PLAN: Severe nonischemic cardiomyopathy status post DISTRICT FIRE MANAGEMENT OFFICER-D in July 2023. - [facility] 10/2021: mod LAD, D1 prox 40%, mild [...] breath or increasing abdominal girth. - 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 07/16/23 at [facility] - Follows with advanced heart failure, - Follows with EPDr. [place] and continue follow-up in the device clinic Left bundle branch block - 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 07/16/23 at [facility] - Follows with EP, Dr. [place] Nonobstructive coronary artery disease - [facility] 10/2021: mod LAD, D1 prox 40%, mild [...] an ejection fraction of 23% status post DISTRICT FIRE MANAGEMENT OFFICER-D in July 2023, hypertension and factor V [...] on chronic systolic CHF (congestive heart failure) ([facility]) 05/03/2020 Aspiration pneumonia ([facility]) 05/30/2020 Chest pain 05/03/2020 Chest pressure 01/23/2013 Chronic diastolic congestive heart failure ([facility]) 02/14/2021 Clostridium difficile diarrhea 09/28/2020 Complete uterovaginal prolapse Cystocele, midline Essential hypertension 06/14/2020 Homozygous Factor V Leiden mutation ([facility]) 05/03/2020 Hypothyroidism IBS (irritable bowel syndrome) [...] Relation Age of Onset (more content not included)...[facility]09-26-2024 History of Present illness Narrative* Angel Castro, DO - 02/07/2024 2:02 PM EDT Images from the original note were not included. [facility] [place] [facility] Department of Cardiovascular Medicine SECTION OF [facility] OUTPATIENT VISIT DATE February 07, 2024 OUTPATIENT VISIT TYPE ESTABLISHED PATIENT Name: Sandra Schmitz : 1945 Date: February 07, 2024 PRIMARY CARE PHYSICIAN: Mandeep Houser [address] [place] [address] REFERRING PHYSICIAN: No referring provider defined for this encounter. CHIEF COMPLAINT: Patient presents with: CARD Follow Up 3 Month: PMH: non-ischemic CM, HTN, Hypothyroidism, LBBB 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 IMPRESSION / PLAN: Severe nonischemic cardiomyopathy status post DISTRICT FIRE MANAGEMENT OFFICER-D in July 2023. - [facility] 10/2021: mod LAD, D1 prox 40%, mild [...] breath or increasing abdominal girth. - 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 07/16/23 at [facility] - Follows with advanced heart failure, - Follows with Dr. Kitty DIAZ and continue follow-up in the device clinic Left bundle branch block - 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 07/16/23 at [facility] - Follows with EPDr. [place] Nonobstructive coronary artery disease - [facility] 10/2021: mod LAD, D1 prox 40%, mild [...] an ejection fraction of 23% status post DISTRICT FIRE MANAGEMENT OFFICER-D in July 2023, hypertension and factor V [...] on chronic systolic CHF (congestive heart failure) ([facility]) 05/03/2020 Aspiration pneumonia ([facility]) 05/30/2020 Chest pain 05/03/2020 Chest pressure 01/23/2013 Chronic diastolic congestive heart failure (HCC) 02/14/2021 Clostridium difficile diarrhea 09/28/2020 Complete uterovaginal prolapse Cystocele, midline Essential hypertension 06/14/2020 Homozygous Factor V Leiden mutation ([facility]) 05/03/2020 Hypothyroidism IBS (irritable bowel syndrome) [...] Cardiovascular testing perfomed today. Angel Castro DO, [facility] Staff Director Of Curriculum Angel and Lizy Nuno Dept. of Cardiovascular Medicine Heart, Vascular and Thoracic [facility], [facility] This document was generated using the assistance of voice recognition software. If there are any errors of spelling, grammar, syntax or meaning, please feel free to contact me directly at anytime. documented in this encounterSelect Medical [facility] [place]09-17-2024 NoteHNO ID: [id number] Author: MANDEEP HOUSER DO Service: ? Author [...] on chronic systolic CHF (congestive heart failure) ([facility]) 05/03/2020 Aspiration pneumonia ([facility]) 05/30/2020 Chest pain 05/03/2020 Chest pressure 01/23/2013 Chronic diastolic congestive heart failure ([facility]) 02/14/2021 Clostridium difficile diarrhea 09/28/2020 Complete [...] E03.9 (primary diagnosis) - (more content not included)...[facility]09-17-[facility] History of Present illness Narrative* Mandeep [...] on chronic systolic CHF (congestive heart failure) ([facility]) 05/03/2020 Aspiration pneumonia ([facility]) 05/30/2020 Chest pain 05/03/2020 Chest pressure 01/23/2013 Chronic diastolic congestive heart failure ([facility]) 02/14/2021 Clostridium difficile diarrhea 09/28/2020 Complete uterovaginal prolapse Cystocele, midline Essential hypertension 06/14/2020 Homozygous Factor V Leiden mutation ([facility]) 05/03/2020 Hypothyroidism IBS (irritable bowel syndrome) [...] plan. See patient instructions. Mandeep Houser DO [address] [place] [address] documented in this encounterSelect Medical [facility] [place]09-03-2024 NoteHNO ID: [id number] Author: PILI WELLS MD Service: ? Author Type: Physician Type: Progress Notes Filed: 03/07/2024 19:04 Note Text: Heart and Vascular [facility] SECTION OF HEART FAILURE and CARDIAC TRANSPLANT MEDICINE [facility] OUTPATIENT VISIT DATE January 15, 2024 OUTPATIENT VISIT TYPE Established PRIMARY CARE PHYSICIAN: Mandeep Houser [address] [place] [address] CHIEF COMPLAINT: Follow Up HISTORY OF PRESENT ILLNESS: Sandra Schmitz is a 78 year old female with a medical history that includes non-ischemic CM, HTN, Hypothyroidism, LBBB 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 who is referred to me for heart failure management. Sandra Schmitz was initially diagnosed with non-ischemic CM ~ 4 yrs ago and was doing well on losartan and metoprolol. She had progressive sxs of dyspnea on exertion, therefore she was started on entresto and farxiga and her sxs persisted and she was admitted locally in [place] and then transferred to for DISTRICT FIRE MANAGEMENT OFFICER consideration. Interval History: Sandra Schmitz was last [...] LVEF 40%, LVEdd 4.8cm. LBBB: chronic. S/p DISTRICT FIRE MANAGEMENT OFFICER 07/2023 Non-obstructive CAD: stable, ischemic testing recently [...] on chronic systolic CHF (congestive heart failure) ([facility]) 05/30/2020: Aspiration pneumonia ([facility]) 05/03/2020: Chest pain 01/23/2013: Chest pressure 02/14/2021: Chronic diastolic congestive heart failure ([facility]) 09/28/2020: Clostridium difficile diarrhea No date: Complete uterovaginal prolapse No date: Cystocele, midline 06/14/2020: Essential hypertension 05/03/2020: Homozygous Factor V Leiden mutation ([facility]) No date: Hypothyroidism 01/23/2013: IBS (irritable [...] of heart failure Beta (more content not included)...[facility]09-03-2024 History of Present illness Narrative* Pili Wells MD - 01/15/2024 1:13 PM EDT Images from the original note were not included. [facility] SECTION OF HEART FAILURE and CARDIAC TRANSPLANT MEDICINE [facility] OUTPATIENT VISIT DATE January 15, 2024 OUTPATIENT VISIT TYPE Established PRIMARY CARE PHYSICIAN: Mandeep Houser [address] [place] [address] CHIEF COMPLAINT: Follow Up HISTORY OF PRESENT ILLNESS: Sandra Schmitz is a 78 year old female with a medical history that includes non-ischemic CM, HTN, Hypothyroidism, LBBB 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 who is referred to dc for heart failure management. Sandra Schmitz was initially diagnosed with non-ischemic CM ~ 4 yrs ago and was doing well on losartan and metoprolol. She had progressive sxs of dyspnea on exertion, therefore she was started on entresto and farxiga and her sxs persisted and she was admitted locally in [place] and then transferredto for DISTRICT FIRE MANAGEMENT OFFICER consideration. Interval History: Sandra Schmitz was last [...] LVEF 40%, LVEdd 4.8cm. LBBB: chronic. S/p DISTRICT FIRE MANAGEMENT OFFICER 07/2023 Non-obstructive CAD: stable, ischemic testing recently [...] on chronic systolic CHF (congestive heart failure) ([facility]) 05/30/2020: Aspiration pneumonia ([facility]) 05/03/2020: Chest pain 01/23/2013: Chest pressure 02/14/2021: Chronic diastolic congestive heart failure ([facility]) 09/28/2020: Clostridium difficile diarrhea No date: Complete uterovaginal prolapse No date: Cystocele, midline 06/14/2020: Essential hypertension 05/03/2020: Homozygous Factor V Leiden mutation ([facility]) No date: Hypothyroidism 01/23/2013: IBS (irritable [...] to tingling/BADILLO - Vasodilators: no - Device: DISTRICT FIRE MANAGEMENT OFFICER-D - Cardiomems: no - Other: lasix 20mg daily IMPRESSION and PLAN/Recommendation In summary, Sandra Schmitz is a 78 year old being managed today for the following issues: 1. Non-ischemic Cardiomyopathy/chronic systolic heart failure: NYHA functional class IIb, Stage C heart failure, Clinical Class A - warm and euvolemic. Intolerant to many GDMT as above. Currently will continue. She reports symptomatic improvement post DISTRICT FIRE MANAGEMENT OFFICER. Echo 11/2023 reviewed - LVEF remains low, LV not as dilated, MR improved as well GDMT: as above Did cardiac rehab. Labs 11/2022 reviwed: K 4.0, Cr 0.96 Following with Gloria as well. 2. Non-obsctructive CAD: on aspirin and toprol as above On aspirin 81mg daily, not on stating - reports intolerance. Following with Dr. Castro. 3. LBBB 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 Thank you for allowing me to participate [...] Wells MD Advanced Heart Failure and Transplant Director Of Curriculum [place] [address] Appointment: [phone] documented in this encounterSelect [facility] Instructions* Patient Instructions* Pili Wells MD - [...] and weight daily. Please notify us via [employer] if your Systolic BP (top number) < [...] heart kidney injury risk Please send a [employer] message or call with any questions or concerns: Outpatient Number: [id number] Thank you, Pili Wells MD Advanced Heart Failure and Transplant Director Of Curriculum [place] [phone] documented in this encounterSelect [facility]ty [facility]08-29-2024 NoteHNO ID: [id number] Author: MANDEEP HOUSER, DO Service: ? Author [...] on chronic systolic CHF (congestive heart failure) ([facility]) 05/30/2020: Aspiration pneumonia ([facility]) 05/03/2020: Chest pain 01/23/2013: Chest pressure 02/14/2021: Chronic diastolic congestive heart failure ([facility]) 09/28/2020: Clostridium difficile diarrhea No date: Complete uterovaginal prolapse No date: Cystocele, midline 06/14/2020: Essential hypertension 05/03/2020: Homozygous Factor V Leiden mutation ([facility]) No date: Hypothyroidism 01/23/2013: IBS (irritable [...] No edema. No sp (more content not included)...[facility]08-29-2024 History of Present illness Narrative* Mandeep [...] (congestive heart failure) (HCC) 05/30/2020: Aspiration pneumonia ([facility]) 05/03/2020: Chest pain 01/23/2013: Chest pressure [...] plan. See patient instructions. Mandeep Houser DO [address] [place] [address] documented in this encounterSelect [facility]07-31-2024 NoteHNO ID: [id number] Author: MANDEEP HOUSER DO Service: ? Author [...] on chronic systolic CHF (congestive heart failure) ([facility]) 05/30/2020: Aspiration pneumonia ([facility]) 05/03/2020: Chest pain 01/23/2013: Chest pressure 02/14/2021: Chronic diastolic congestive heart failure ([facility]) 09/28/2020: Clostridium difficile diarrhea No date: Complete uterovaginal prolapse No date: Cystocele, midline 06/14/2020: Essential hypertension 05/03/2020: Homozygous Factor V Leiden mutation ([facility]) No date: Hypothyroidism 01/23/2013: IBS (irritable [...] bilateral thoracic back pain (more content not included)...[facility]07-31-2024 History of Present illness Narrative* Mandeep [...] on chronic systolic CHF (congestive heart failure) ([facility]) 05/30/2020: Aspiration pneumonia ([facility]) 05/03/2020: Chest pain 01/23/2013: Chest pressure 02/14/2021: Chronic diastolic congestive heart failure ([facility]) 09/28/2020: Clostridium difficile diarrhea No date: Complete uterovaginal prolapse No date: Cystocele, midline 06/14/2020: Essential hypertension 05/03/2020: Homozygous Factor V Leiden mutation ([facility]) No date: Hypothyroidism 01/23/2013: IBS (irritable [...] plan. See patient instructions. Mandeep Houser DO [address] [place] [address] documented in this encounterSelect [facility]07-29-2024 Telephone encounter Note * Telephone Encounter - [...] edema. No further questions. Pt confirmed understanding. [facility]07-29-2024 Miscellaneous Notes* Telephone Encounter - Helen Ramachandran [...] 12/10/2023 11:31 AM EDT Pili Wells MD De, Please call patient with results. She doesn't have mychart for me to send message. Thanks, * Telephone Encounter - Pili Wells MD - 12/06/2023 6:49 PM EDT Echo results reviewed. LVEF remains stable, mitral regurgitation is improved. At this time we will continue with medications. No changes documented in this encounterSelect [facility]07-29-2024 Telephone encounter Note * Telephone Encounter - Helen Ramachandran RN - 12/10/2023 11:31 AM EDT Pili Wells MD De, Please call patient with results. She doesn't have mychart for me to send message. Thanks, [facility]07-25-2024 Telephone encounter Note* Telephone Encounter - Pili Wells MD - 12/06/2023 6:49 PM EDT Echo results reviewed. LVEF remains stable, mitral regurgitation is improved. At this time we will continue with medications. No changes [facility]07-17-2024 Telephone encounter Note* Telephone Encounter - Concetta Dahl - 11/28/2023 11:06 AM EDT Transitional Care Management (TCM) [facility] Monitoring Program Provider Action / FYI: N/A SUMMARY: Outreach type: FOLLOW-UP OUTREACH Discharge Network Status: In-Network Discharge Source of Patient: [facility] TCM Discharge Report Patient discharged from [facility] on 11[facility]. Admitted for Pre-syncope. Contact made with patient: Yes, for Follow-up Outreach De, my name is Concettajose a Edmondslela. I am calling from the [facility] on behalf of your PrimaryCare Provider, Mandeep [...] Appointment Center phone number to speak witha harbor engineer who can assist you with that appointment. [...] Concetta Dahl November 28, 2023 11:09 AM [facility]07-17-2024 Miscellaneous Notes* Telephone Encounter - Concetta Dahl - 11/28/2023 11:06 AM EDT Transitional Care Management (TCM) [facility] Monitoring Program Provider Action / FYI: N/A SUMMARY: Outreach type: FOLLOW-UP OUTREACH Discharge Network Status: [facility] Patient discharged from [facility] on 11/18[facility]23. Admitted for Pre-syncope. Contact made with patient: Yes, for Follow-up Outreach Hi, my name is Concetta Nabila. I am calling from the [facility] on behalf of your PrimaryCare Provider, Mandeep [...] Appointment Center phone number to speak witha harbor engineer who can assist you with that appointment. [...] 28, 2023 11:09 AM documented in this encounterSelect [facility]07-12-2024 Telephone encounter Note * Telephone Encounter - Rojas Prakash RN - 11/23/2023 1:28 PM EDT Transitional Care Management (TCM) [facility] Monitoring Program Provider Action / FYI: na SUMMARY: Outreach type: INITIAL OUTREACH Discharge Network Status: In-Network Discharge Source of Patient: [facility] TCM Discharge Report Patient discharged from [facility] on 11.18.23. Admitted for Pre-syncope . Contact made with patient: No - next outreach attempt will be on next business day. Rojas Prakash RN November 23, 2023 1:29 PM [facility]07-12-2024 Miscellaneous Notes* Telephone Encounter - Rojas Prakash RN - 11/23/2023 1:28 PM EDT Transitional Care Management (TCM) [facility] Monitoring Program Provider Action / FYI: na SUMMARY: Outreach type: INITIAL OUTREACH Discharge Network Status: In-Network Discharge Source of Patient: [facility] TCM Discharge Report Patient discharged from [facility] on 11.18.23. Admitted for Pre-syncope . Contact made with patient: No - next outreach attempt will be on next business day. Rojas Prakash RN November 23, 2023 1:29 PM documented in this encounterSelect [facility] [place]07-09-2024 Telephone encounter Note * Telephone Encounter - [...] No results found for this basename: BNP [facility]07-09-2024 Miscellaneous Notes* Telephone Encounter - Misty Ascencio [...] for this basename: BNP documented in this encounterSelect Medical [facility]ty [facility] [place]07-06-2024 NoteHNO ID: [id number] Author: REMINGTON CAI MD Service: Hospital Medicine Author Type: Physician Type: Progress Notes Filed: 11/18/2023 08:20 Note Text: DEPARTMENT OF HOSPITAL MEDICINE PROGRESS NOTE SERVICE DATE: 11/17/2023 SERVICE TIME: 3:13 PM Hospital Medicine/Primary Attending: Remington Cai MD NIGHT AND WEEKEND COVERAGE: [employer]UL[employer]ERRY COVERAGE: Nights: [phone], please page [facility] Centerist Night coverage pager [phone]. Probable discharge: 11/17 Disposition: Home Consultants: PROCEDURES: [...] (1st dx 2019, 07-12-23: EF 26%), 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 (July 20, 2023, [employer]), non occlusive CAD ([facility]: ), IBS, Factor V Leiden Syndrome, HTN, HLD, CAD, Hypothyroidism almost blacking out. Patient states that earlier today she was having some abdominal spasms and went to the bathroom. Had a small BM then proceeded to very lightheaded and states her visions kind of went dark but she did not lose full consci (more content not included)...[facility] [id number] NoteHNO ID: [id number] Author: REMINGTON CAI MD Service: Hospital Medicine Author Type: Physician Type: Progress Notes Filed: 11/17/2023 15:12 Note Text: DEPARTMENT OF [facility] MEDICINE PROGRESS NOTE SERVICE DATE: 11/16/2023 SERVICE TIME: 2:31 PM Hospital Medicine/Primary Attending: Remington Cai MD NIGHT AND WEEKEND COVERAGE: MULBERRY COVERAGE: Nights: [phone], please page [facility] Night coverage pager [phone]. Probable discharge: 11/16 Disposition: Home Consultants: PROCEDURES: [...] ( dx 2019, 07-12-23: EF 26%), 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 (July 20, 2023, [employer]), non occlusive CAD ([facility]: ), IBS, Factor V Leiden Syndrome, HTN, HLD, CAD, Hypothyroidism almost blacking out. Patient states that earlier today she was having some abdominal spasms and went (more content not included)...[facility] [id number] NoteHNO ID: [id number] Author: SADIE TALBERT RN Service: Care Management [...] Determined Advance Directives Current Advance Directive: None Stamp Classifier Attempted to Assist with AD Completion: Yes [...] Be able to go home, General wellness [place] Explained: [place] Given: No Reason Not Given: [...] 16, 2023 TIME: 9:42 AM CONTACT #: [phone] [id number] NoteHNO ID: [id number] Author: JP HENNING CT Service: Cardiovascular Testing Author Type: Clinical Car Barn Laborer Type: Progress Notes Filed: 11/16/2023 07:55 Note Text: Summary: Pacemaker Check Received requisition for pacemaker check. Went to patient's room to check device. Patient stated that the device was checked in the ED last night. I checked the patient's hard chart and report from [employer] is in the chart. No need to repeat a device check.[facility] [id number] Telephone encounter Note * Telephone Encounter - Bria Wallace MA - 11/08/2023 8:20 AM EDT Pt notified and verbalized understanding Bria Wallace MA [facility]06-27-2024 Miscellaneous Notes* Telephone Encounter - Bria Wallace [...] Lymph 1.00 - 4.00 k/uL 4.05 (H) Reeves% % 9.1 Abs Reeves <0.87 k/uL 0.99 (H) Eosin% % 3.1 [...] chronic microvascular ischemic changes. documented in this encounterSelect [facility]06-26-2024 History of Present illness Narrative* Mandeep Houser [...] on chronic systolic CHF (congestive heart failure) ([facility]) 05/03/2020 Aspiration pneumonia ([facility]) 05/30/2020 Chest pain 05/03/2020 Chest pressure 01/23/2013 Chronic diastolic congestive heart failure ([facility]) 02/14/2021 Clostridium difficile diarrhea 09/28/2020 Complete uterovaginal prolapse Cystocele, midline Essential hypertension 06/14/2020 Homozygous Factor V Leiden mutation ([facility]) 05/03/2020 Hypothyroidism IBS (irritable bowel syndrome) [...] M54.50 Xrays as ordered Start on prednisone [place] for severe pain, If xrays are without [...] plan. See patient instructions. Mandeep Houser DO [address] [place] [address] documented in this encounterSelect [facility]06-26-2024 Telephone encounter Note * Telephone Encounter - [...] before breakfast. Authorizing Provider: HOUSERMANDEEP HAUSER DO [facility]06-26-2024 Telephone encounter Note* Telephone Encounter - Petrona Lechuga RN - 11/07/2023 1:03 PM EDT Spoke with patient. Given message from provider's office. Patient verbalizes understanding. Scheduled. Petrona Lechuga RN [facility]06-26-2024 Miscellaneous Notes* Telephone Encounter - Petrona Lechuga [...] on her. Please advise documented in this encounterSelect [facility]06-26-2024 Telephone encounter Note * Telephone Encounter - Mandeep Houser DO - 11/07/2023 12:36 PM EDT Ok for her to come in at 6 pm tonight for an appointment Mandeep Houser DO [facility]06-26-[facility]24 Telephone encounter Note* Telephone Encounter - Mane Pennington LPN - 11/07/2023 10:36 AM EDT Patient calling asking for an OMT appt having back and hip problems. Patient said her hip went out on her. Please advise [facility] Telephone encounter Note* Telephone Encounter - Sanjeev [...] Lymph 1.00 - 4.00 k/uL 4.05 (H) Reeves% % 9.1 Abs Reeves <0.87 k/uL 0.99 (H) Eosin% % 3.1 [...] 2.1 (L) Legend: (H) High (L) Low [facility]06-25-2024 Telephone encounter Note* Telephone Encounter - Merly Gomez OCCA - 11/06/2023 10:14 AM EDT TC no answer. Left VM to return call. BETTY Wells [facility]06-25-2024 Telephone encounter Note* Telephone Encounter - Mandeep [...] consistent with chronic microvascular ischemic changes. T [facility]06-20-2024 History of Present illness Narrative* Kirstin Stevens [...] PATIENT PRESENTS WITH AN IMPLANTABLE OR ATTACHED ROLLING CHAIR PUSHER: No RADIOLOGY DEPARTMENT: CT; Exam(s) Completed: Brain PERIPHERAL IV DATA: Not applicable SIGNED BY: RT Reyes(Marlee) November 01, 2023 3:05 PM documented in this encounterSelect [facility]06-20-2024 NoteHNO ID: [id number] Author: KIRSTIN STEVENS RT(Marlee) Service: Radiology Author [...] PATIENT PRESENTS WITH AN IMPLANTABLE OR ATTACHED ROLLING CHAIR PUSHER: No RADIOLOGY DEPARTMENT: CT; Exam(s) Completed: Brain PERIPHERAL IV DATA: Not applicable SIGNED BY: RT Reyes(R) November 01, 2023 3:05 [facility]06-20-2024 History of Present illness Narrative* Mercedes Vera APRN.MEDICAL SCIENTIST - 11/01/2023 9:30 AM EDT Images from the original note were not included. [facility] [place] [facility] Department of Cardiovascular Medicine SECTION OF CARDIAC PACING and ELECTROPHYSIOLOGY OUTPATIENT VISIT DATE November 01, 2023 OUTPATIENT VISIT TYPE ESTABLISHED PRIMARY CARE PHYSICIAN: Mandeep Houser [address] [place] [address] CHIEF COMPLAINT: follow up 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 HISTORY OF PRESENT ILLNESS: Ms. Schmitz is a 78 year old female who presents today for followed by Dr. Wells, Dr. Wellington, Dr. Greenfield ([facility]), Dr. 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 total V pacing 97.9%. Adaptive DISTRICT FIRE MANAGEMENT OFFICER shows BiV pacing 6.8%, LV only pacing [...] chronic HFrEF (2019, 07-12-23: EF 26%), 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 (July 20, 2023, [employer]), non occlusive CAD ([facility]: ). -normotensive, ventricular pacing, no evidence per [...] with more than 50% of the total [id number]-rw-cnyc time of the visit in counseling / coordination of care. CONTACT INFORMATION: Mercedes Vera APRN.TIM, 11/01/23 [facility] [place] Cardiology [address] [place] [address] documented in this encounterSelect [facility]06-19-[facility]24 History of Present illness Narrative* Mandeep Houser, [...] 3 months had a pacemaker placed by Director Of Curriculum- has upcoming follow up for check up. [...] (congestive heart failure) (HCC) 05/03/2020 Aspiration pneumonia ([facility]) 05/30/2020 Chest pain 05/03/2020 Chest pressure 01/23/2013 Chronic diastolic congestive heart failure ([facility]) 02/14/2021 Clostridium difficile diarrhea 09/28/2020 Complete uterovaginal prolapse Cystocele, midline Essential hypertension 06/14/2020 Homozygous Factor V Leiden mutation ([facility]) 05/03/2020 Hypothyroidism IBS (irritable bowel syndrome) [...] with the plan. Mandeep Houser DO [address] [place] [address] documented in this encounterSelect [facility]06-18-2024 Telephone encounter Note * Telephone Encounter - Radha Buchanan - 10/30/2023 12:00 PM EDT Patient will call back to confirm or change appointment. Will check with daughter and sister for transportation help. Prefers [place] location with Mercedes. [facility]06-18-[facility]24 Miscellaneous Notes* Telephone Encounter - Radha Buchanan - 10/30/2023 12:00 PM EDT Patient will call back to confirm or change appointment. Will check with daughter and sister for transportation help. Prefers [place] location with Mercedes. * Telephone Encounter - Radha Buchanan - 10/30/2023 11:33 AM EDT Images from the original note were not included. Dilcia Pearson MD Othman, Amal; Shelly Briones MA Can we bring her in for visit with Mercedes (here) or Morenita Chavis at [facility] - earliest available(not urgent) Thx C documented in this encounterSelect [facility]06-18-2024 Telephone encounter Note * Telephone Encounter - Radha Buchanan - 10/30/2023 11:33 AM EDT Images from the original note were not included. Dilcia Pearson MD Othman, Amal; Shelly Briones MA Can we bring her in for visit with Mercedes (here) or Morenita or [place] at [facility] - earliest available(not urgent) Thx C [facility]06-05-2024 Telephone encounter Note* Telephone Encounter - Anni Herrera LPN - 10/17/2023 11:20 AM EDT Spoke with pt and information listed below given. Pt verbalizes understanding. Anni Herrera LPN [facility]06-05-2024 Miscellaneous Notes* Telephone Encounter - Anni Herrera [...] stable. Take careRupali APRN.CNP documented in this encounterSelect Medical Specialty [facility]06-05-2024 Telephone encounter Note * Telephone Encounter - Kelsey Costa LPN - 10/17/2023 10:19 AM EDT Message left to return call. [facility] Work Phone: [phone] Telephone encounter Note* Telephone Encounter - Rupali Nascimento APRN.CNP - 10/17/2023 9:38 AM EDT Please call patient and let her know that lab work looks good. Uric acid level was elevated as we suspected d/t gout flare up. Continue with regimen as discussed. Kidney function is normal and stable. Take care, Rupali Nascimento APRN.MEDICAL SCIENTIST [facility]06-03-2024 Telephone encounter Note* Telephone Encounter - Rupali Nascimento APRN.CNP - 10/15/2023 12:18 PM EDT Noted. Just saw patient in office and agree with below. Trial of prednisone burst x 4 days and continue with compression stockings was the recommendation. Thank you, Rupali Nascimento APRN.MEDICAL SCIENTIST [facility]06-03-2024 Miscellaneous Notes* Telephone Encounter - Rupali Nascimento [...] pain, rash, fever, numbness Protocols used: Toe [id number] documented in this encounterSelect Medical [facility]06-03-2024 Instructions* Patient Instructions* Rupali Nascimento APRN.MEDICAL SCIENTIST - 10/15/2023 11:47 AM EDT .az documented in this encounterSelect Medical Specialty [facility]06-03-2024 History of Present illness Narrative* Rupali Nascimento [...] on chronic systolic CHF (congestive heart failure) ([facility]) 05/03/2020 Aspiration pneumonia ([facility]) 05/30/2020 Chest pain 05/03/2020 Chest pressure 01/23/2013 Chronic diastolic congestive heart failure ([facility]) 02/14/2021 Clostridium difficile diarrhea 09/28/2020 Complete uterovaginal prolapse Cystocele, midline Essential hypertension 06/14/2020 Homozygous Factor V Leiden mutation ([facility]) 05/03/2020 Hypothyroidism IBS (irritable bowel syndrome) [...] agreeable to treatment plan. Rupali Correa APRN.MEDICAL SCIENTIST [address] [place] [address] documented in this encounterSelect [facility]06-03-2024 Telephone encounter Note * Telephone Encounter - Jyoti Josue RN - 10/15/2023 11:09 AM EDT Received TE back today and called patient with update. Patient scheduled with PCP office previously. Patient wanting to have PCP check to make sure she doesn't have gout. Dr. Del Cid is out this week. Jyoti Josue RN [facility]-30-2024 Telephone encounter Note* Telephone Encounter - Jyoti [...] pain, rash, fever, numbness Protocols used: Toe [id number] [facility]05-30-2024 Telephone encounter Note* Telephone Encounter - Sridevi [...] 10/31/2023 Please advise. Thank you. Sridevi Leyva. [facility]-30-2024 Miscellaneous Notes* Telephone Encounter - Sridevi Leyva [...] Thank you. Sridevi Leyva. documented in this encounterSelect [facility]ty [facility]05-21-2024 History of Present illness Narrative* Pili Wells MD - 10/02/2023 4:00 PM EDT [facility] [place] Department of Cardiovascular Medicine TELEPHONE VISIT (audio [...] visit. Either the patient or their legal healthcare representative has been informed of the risks and benefits of -- and alternatives to -- treatment through a remote evaluation andconsents to proceed with the evaluation remotely. Sandra Schmitz has consented to this telephone encounter. Persons Present: patient Chief Complaint/Reason: Follow up HPI: Sandra Schmitz is a 78 year old female with a medical history that includes non-ischemic CM, HTN, Hypothyroidism, LBBB 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 who is referred to me for heart failure management. Sandra Schmitz was initially diagnosed with non-ischemic CM ~ 4 yrs ago and was doing well on losartan and metoprolol. She had progressive sxs of dyspnea on exertion, therefore she was started on entresto and farxiga and her sxs persisted and she was admitted locally in [place] and then transferredto for DISTRICT FIRE MANAGEMENT OFFICER consideration. Interval History: Sandra Schmitz was last [...] LVEF 40%, LVEdd 4.8cm. LBBB: chronic. S/p DISTRICT FIRE MANAGEMENT OFFICER 07/2023 Non-obstructive CAD: stable, ischemic testing recently with no ischemia or infarction. 06/2023 Nuc SPECT: no ischemia or infarction. 10/2021 Cath: mod LAD, D1 prox 40%, mild RCA disease dominant, EF 35%. Hx of HTN: BP have been stable Data Reviewed: Device interrogation (09/19/23) OTHER DIAGNOSTICS: RA pacing <0.1%. total V pacing 97.9%. Adaptive DISTRICT FIRE MANAGEMENT OFFICER shows BiV pacing 6.8%, LV only pacing 93.2%. Assessment: GDMT: - BB: toprol XL 12.5mg daily - ACEI/ARB/ARNI: losartan 25mg daily - MRA: no - SGLT2: unable to tolerate it - Vasodilators: no - Device: DISTRICT FIRE MANAGEMENT OFFICER - Cardiomems: no - Other: lasix 20mg [...] reviewed Cr: 0.84, K 3.9. Echocardiogram in [place] next month and following with Dr. Castro. 2. HTN: BP well controlled currently. 3. LBBB s/p DISTRICT FIRE MANAGEMENT OFFICER: Will send message to Dr. Wellington given [...] Wells MD Advanced Heart Failure and Transplant Director Of Curriculum Heart and Vascular [place] [phone] Appointment: [phone] documented in this encounterSelect [facility] Instructions* Patient Instructions* Alejandrina Harvey APRN.MEDICAL SCIENTIST - 10/01/2023 12:41 PM EDT Take the Mucinex twice daily for 14 days. Start the Zpak today. Use the tessalon perles for your cough if they work. Get in at least 60-80oz of water daily. Ok for Tylenol/ibuprofen if necessary. Let me know in the next week if you're not improving. documented in this encounterSelect Medical [facility]ty [facility] [place]05-20-2024 History of Present illness Narrative* Alejandrina Harvey [...] on chronic systolic CHF (congestive heart failure) ([facility]) 05/03/2020 Aspiration pneumonia ([facility]) 05/30/2020 Chest pain 05/03/2020 Chest pressure 01/23/2013 Chronic diastolic congestive heart failure ([facility]) 02/14/2021 Clostridium difficile diarrhea 09/28/2020 Complete uterovaginal prolapse Cystocele, midline Essential hypertension 06/14/2020 Homozygous Factor V Leiden mutation ([facility]) 05/03/2020 Hypothyroidism IBS (irritable bowel syndrome) [...] HR Alejandrina Harvey APRN.TIM documented in this encounterSelect Medical [facility]ty [facility] [place]05-20-2024 Telephone encounter Note * Telephone Encounter - Margarita Villalba LPN - 10/01/2023 10:17 AM EDT Patient notified of results and provider's instructions. Patient verbalizes understanding. Margarita Villalba LPN [facility] Work Phone: [phone]) 633-504905-20-2024 Miscellaneous Notes* Telephone Encounter - Margarita Villalba [...] shoes Oliverio Mata DPM documented in this encounterSelect Medical [facility] [place]05-19-2024 Telephone encounter Note * Telephone Encounter - Oliverio Mata - 09/30/2023 8:03 AM EDT Please call patient to inform her that xrays do not show any stress fracture. Continue with good supportive shoes and/or insert in shoes Oliverio Mata DPM [facility] Work Phone: [phone]) 828-949105-17-2024 NoteMULTI CHAMBER ICD REMOTE EVALUATION: PRESENTING EGM: /LVP BATTERY STATUS: Estimated time remaining to YOLI is 11.7 years COUNTERS SINCE: 08/07/23 ATRIAL ARRHYTHMIAS: There have been no atrial detections. VENTRICULAR ARRHYTHMIAS: There have been no ventricular detections. LEAD MEASUREMENTS: Sensing is appropriate. Review of the lead impedance trends are normal. OTHER DIAGNOSTICS: RA pacing <0.1%. total V pacing 97.9%. Adaptive DISTRICT FIRE MANAGEMENT OFFICER shows BiV pacing 6.8%, LV only pacing 93.2%. FOLLOW UP: Continue 3 month remote transmissions and yearly in-clinic interrogations. Amy Louis RN NOTE TO PROVIDERS: CARD Flowsheets contain detailed device programming and testing data. Paceart/Interrogation PDF can be found under CARDIAC DATA AND REPORT, Scanned Documents section.[id number] Telephone encounter Note* Telephone Encounter - Thuy [...] Dr. Wells 10/01 carlito. Thuy Aguirre APRN.CNP [facility]-14-2024 Miscellaneous Notes* Telephone Encounter - Thuy Aguirre [...] Thuy Aguirre APRN.CNP documented in this encounterCleveland [id number] History of Present illness Narrative* Nuria Whitten [...] PATIENT PRESENTS WITH AN IMPLANTABLE OR ATTACHED ROLLING CHAIR PUSHER: No RADIOLOGY DEPARTMENT: General X-ray: Exam(s) Completed: Lower Extremity X- Ray(s): Foot, Left PERIPHERAL IV DATA: Not applicable SIGNED BY: RT Daily(R) September 24, 2023 11:01 AM documented in this encounterSelect Medical Specialty [facility] [place]05-13-2024 History of Present illness Narrative* Oliverio Mata [...] on chronic systolic CHF (congestive heart failure) ([facility]) 05/03/2020 Aspiration pneumonia ([facility]) 05/30/2020 Chest pain 05/03/2020 Chest pressure 01/23/2013 Chronic diastolic congestive heart failure ([facility]) 02/14/2021 Clostridium difficile diarrhea 09/28/2020 Complete uterovaginal prolapse Cystocele, midline Essential hypertension 06/14/2020 Homozygous Factor V Leiden mutation ([facility]) 05/03/2020 Hypothyroidism IBS (irritable bowel syndrome) [...] cardiology Oliverio Mata DPM Podiatry [address] [facility] [address] Dept: [phone] Dept * Sincere Berger RN - 09/24/2023 [...] is in cardiac rehab where [facility], started that on 08/31/23 three times a week. documented in this encounterSelect Medical Specialty [facility] [place]05-08-2024 Telephone encounter Note * Telephone Encounter - Ira Welch RN - 09/19/2023 5:43 PM EDT Spoke with patient and talked her through sending remote transmission. Pt states that she feels okay other than mild discomfort, denies any shortness of breath, internal chest pain or feeling unwell. Ira Welch RN [facility]05-08-2024 Miscellaneous Notes* Telephone Encounter - Ira Welch [...] and she asks if that is the nikolai thing that sits on the table and [...] was connected that she should contact her screedman/laborer. Please review. JOHN Rowe documented in this encounterSelect Medical Specialty [facility] [place]05-08-2024 Telephone encounter Note * Telephone Encounter - [...] and she asks if that is the nikolai thing that sits on the table and turns green. She states she has never had to send one before and isn't sure how to do it so someone will need to walk her through it. I told her to watch for our call. [facility]-07-[facility] Telephone encounter Note* Telephone Encounter - Sanjeev Carpio RN - 09/18/2023 8:22 AM EDT Phoned patient and given provider's message below with verbalized understanding. Patient agreeable and will call back to schedule appt. [facility]-07-[facility]24 Miscellaneous Notes* Telephone Encounter - Sanjeev Carpio [...] with for further assessment. Alejandrina Harvey APRN.MEDICAL SCIENTIST * Telephone Encounter - Sanjeev Carpio RN - 09/17/2023 1:11 PM EDT Patient asking provider to review and advise on xray left foot results, and asking if she should schedule appt with Dr. Mata, as the left foot is sill swollen some today. documented in this encounterSelect Medical [facility]ty [facility] [place]05-07-2024 Telephone encounter Note * Telephone Encounter - Alejandrina Harvey APRN.CNP - 09/18/2023 6:57 AM EDT Her foot xray looks stable, nothing acutely concerning. Yes, please assist her to schedule with for further assessment. Alejandrina Harvey APRN.TIM [facility]05-06-2024 Telephone encounter Note* Telephone Encounter - Dianna [...] out to EP doctor Dr. Wellington too. [facility]-06-[facility]24 Miscellaneous Notes* Telephone Encounter - Dianna Merino [...] doctor Dr. Wellington too. documented in this encounterSelect Medical Specialty [facility] [place]05-06-2024 Telephone encounter Note * Telephone Encounter - Concetta Prado PSS - 09/17/2023 1:38 PM EDT Patient stated that while she bent over to weed she felt her pacemaker move forward. Pt had a cardio therapy appt today 09/17/23 and they stated everything was connected that she should contact her screedman/laborer. Please review. JOHN Rowe [facility]05-06-2024 Telephone encounter Note* Telephone Encounter - Sanjeev Carpio RN - 09/17/2023 1:11 PM EDT Patient asking provider to review and advise on xray left foot results, and asking if she should schedule appt with Dr. Mata, as the left foot is sill swollen some today. [facility] History of Present illness Narrative* Nuria Whitten [...] PATIENT PRESENTS WITH AN IMPLANTABLE OR ATTACHED ROLLING CHAIR PUSHER: No RADIOLOGY DEPARTMENT: General X-ray: Exam(s) Completed: Lower Extremity X- Ray(s): Foot, Left PERIPHERAL IV DATA: Not applicable SIGNED BY: RT Daily(R) September 13, 2023 11:37 AM documented in this encounterSelect Medical [facility]ty [facility] [place]05-02-2024 History of Present illness Narrative* Alejandrina Harvey [...] 20 MG CAPSULE,DELAYED RELEASE Alejandrina Harvey APRN.MEDICAL SCIENTIST Currently: Top of left foot just near the base of her first 2 toes is painful and swollen. Doing therapy. Has hx of pin in her big toe and fusion to second toe. Thinks she may have stepped wrong-started about 1.5 weeks ago. Hurts to walk and now hurting into the ball of her foot. M-W-F at 10:00 therapy/cardiac rehab at [facility]. Past medical history, appointments, medications, allergies reviewed. Previous Medical History PAST MEDICAL HISTORY Diagnosis Date Acute acalculous cholecystitis 05/30/2020 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 09/22/2020 Acute on chronic systolic CHF (congestive heart failure) ([facility]) 05/03/2020 Aspiration pneumonia ([facility]) 05/30/2020 Chest pain 05/03/2020 Chest pressure 01/23/2013 Chronic diastolic congestive heart failure ([facility]) 02/14/2021 Clostridium difficile diarrhea 09/28/2020 Complete uterovaginal prolapse Cystocele, midline Essential hypertension 06/14/2020 Homozygous Factor V Leiden mutation ([facility]) 05/03/2020 Hypothyroidism IBS (irritable bowel syndrome) [...] LEFT Alejandrina Harvey APRN.TIM documented in this encounterSelect Medical [facility]ty [facility] [place]04-24-2024 Instructions* Patient Instructions* Thuy Aguirre APRN.CNP - [...] Jardiance. 3. Fasting blood work at any [facility] lab in 2 weeks to check kidney [...] appointment with Dr. Oneill documented in this encounterSelect Medical Specialty [facility] [place]04-24-2024 History of Present illness Narrative* Thuy Aguirre APRN.CNP - 09/05/2023 11:00 AM EDT Images from the original note were not included. [facility] [place] [facility] Department of Cardiovascular Medicine SECTION OF CLINICAL CARDIOLOGY OUTPATIENT VISIT DATE September 05, 2023 OUTPATIENT VISIT TYPE ESTABLISHED PRIMARY CARE PHYSICIAN: Mandeep Houser [address] [place] [address] CHIEF COMPLAINT: Follow up HISTORY OF PRESENT ILLNESS: Ms. Schmitz is a 78 year old female with history of chronic HFrEF, NICM, LBBB, 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 (07/2023), nonobstructive CAD, valvular insufficiency, HTN, hypothyroidism, and factor V Leiden mutation who presents today for a cardiovascular medicine follow-up visit. She has historically received her general cardiology care in [place] with Dr. Oneill however after recent admission to [place] 06/2023 she is looking to establish her [...] She is participating in cardiac rehab in [facility]. She isweighing herself daily and weights [...] on chronic systolic CHF (congestive heart failure) ([facility]) 05/03/2020 Aspiration pneumonia ([facility]) 05/30/2020 Chest pain 05/03/2020 Chest pressure 01/23/2013 Chronic diastolic congestive heart failure ([facility]) 02/14/2021 Clostridium difficile diarrhea 09/28/2020 Complete uterovaginal prolapse Cystocele, midline Essential hypertension 06/14/2020 Homozygous Factor V Leiden mutation ([facility]) 05/03/2020 Hypothyroidism IBS (irritable bowel syndrome) [...] 09/11) - Repeat echo 3 months post DISTRICT FIRE MANAGEMENT OFFICER-D (~10/2023) - Jardiance started 08/31 and Lasix discontinued - BMP 2 weeks after starting Jardiance - Consider increase Losartan dose pending Jardiance response Nonischemic cardiomyopathy - [facility] 10/2021: mod LAD, D1 prox 40%, mild RCA disease - GDMT: - 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 07/16/23 at [facility] - Follows with advanced heart failure, - Follows with EP, Dr. Wellington Left bundle branch block - 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 07/16/23 at [facility] - Follows with EP, Dr. Wellington Nonobstructive coronary artery disease - [facility] 10/2021: mod LAD, D1 prox 40%, mild [...] October to assess LVEF 3 months 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. Her most recent cholesterol profile is not [...] Cardiology Nurse Practitioner Section of Regional Cardiology [facility] Dept of Cardiovascular Medicine [facility] [place] [address] Office Office This note was partially generated using Superprotonic voice recognition system and may contain errors related to that system including grammar, punctuation, spelling, and words that may be inappropriate documented in this encounterSelect Medical Specialty [facility] [place]04-15-2024 Miscellaneous Notes* Telephone Encounter - Vinita Fernandez [...] as she states she recently saw her screedman/laborer and was put on Jardiance. She is calling to see if there is any problem to starting the Jardiance and taking the Fluconozole? Please call pt back after provider review. documented in this encounterSelect Medical [facility]ty [facility] [place]04-12-2024 Miscellaneous Notes* Telephone Encounter - Helen Ramachandran [...] lasix is she taking? documented in this encounterSelect Medical Specialty [facility] [place]04-10-2024 Instructions* Patient Instructions* Alejandrina Harvey APRN.TIM - 08/22/2023 11:16 AM EDT Take the prednisone (steroid) if needed for your gout pain. Start taking the omeprazole for your silent reflux, take this at night if you're able. Take the diflucan for yeast infection today. You can repeat it in 3 days if necessary. Your urine testing looks completely normal. documented in this encounterSelect Medical [facility]ty [facility] [place]04-10-2024 History of Present illness Narrative* Alejandrina Harvey [...] on chronic systolic CHF (congestive heart failure) ([facility]) 05/03/2020 Aspiration pneumonia ([facility]) 05/30/2020 Chest pain 05/03/2020 Chest pressure 01/23/2013 Chronic diastolic congestive heart failure ([facility]) 02/14/2021 Clostridium difficile diarrhea 09/28/2020 Complete uterovaginal prolapse Cystocele, midline Essential hypertension 06/14/2020 Homozygous Factor V Leiden mutation ([facility]) 05/03/2020 Hypothyroidism IBS (irritable bowel syndrome) [...] 20 MG CAPSULE,DELAYED RELEASE Alejandrina Harvey APRN.MEDICAL SCIENTIST documented in this encounterSelect Medical [facility]ty [facility] [place]03-26-2024 History of Present illness Narrative* Dilcia Pearson MD - 08/07/2023 3:22 PM EDT Images from the original note were not included. [facility] [place] [facility] Department of Cardiovascular Medicine SECTION OF CARDIAC PACING and ELECTROPHYSIOLOGY OUTPATIENT VISIT DATE August 07, 2023 OUTPATIENT VISIT TYPE ESTABLISHED PRIMARY CARE PHYSICIAN: Mandeep Houser [address] [place] [address] REFERRING PHYSICIAN: No referring provider defined for this encounter. CHIEF COMPLAINT: Left bundle branch block, nonischemic cardiomyopathy, status post DISTRICT FIRE MANAGEMENT OFFICER-D HISTORY OF PRESENT ILLNESS: Ms. Schmitz is [...] shows normal lead parametersand effective delivery of DISTRICT FIRE MANAGEMENT OFFICER. She reports notable improvement in symptoms. We will monitor her device remotely every 3 months Follow-up with EP team on an annual basis CONTACT INFORMATION: Dilcia Bonilla MD documented in this encounterSelect Medical Specialty [facility]03-25-2024 Miscellaneous Notes* Telephone Encounter - Helen Ramachandran RN - 08/06/2023 3:41 PM EDT Spoke with pt to confirm appt with Dr. Wells tomorrow. documented in this encounterSelect Medical Specialty [facility] [place]03-16-2024 Miscellaneous Notes* Telephone Encounter - Palmira Samuels [...] device related. Please advise. documented in this encounterSelect Medical Specialty [facility] [place]03-13-2024 Miscellaneous Notes* Telephone Encounter - Mane Pennington [...] you. Mane Pennington LPN. documented in this encounterSelect Medical Specialty Hospital [facility] [place]03-13-2024 Miscellaneous Notes* Telephone Encounter - Mane Pennington LPN - 07/25/2023 2:06 PM EDT Phoned patient and went over results, notes from Dr Houser with understanding. * Telephone Encounter - Mandeep Houser DO - 07/25/2023 1:49 PM EDT Please let patient know that overall her labs are stable. No changes at this time Mandeep Houser DO documented in this encounterSelect Medical Specialty [facility] [place]03-12-2024 History of Present illness Narrative* Mandeep Houser [...] beta-lorenzo. Unable to schedule pacer defibrillator and [place] and contacted [facility] in August to have Dr. Wellington [...] pacer defibrillator plan to be done at [place] Disposition: Transfer to [place] on hospital medicine with consult to Dr. [...] 24 Has a follow up scheduled with Director Of Curriculum / Cardiac surgeon in the next 2 [...] and fatigue is improving. Follow up with Director Of Curriculum/surgeon Recheck labs. She is taking the metoprolol [...] and fatigue is improving. Follow up with Director Of Curriculum/surgeon Recheck labs. She is taking the metoprolol medication - COMP METABOLIC PANEL - CBC + DIFF 5. Acute hypoxic respiratory failure (HCC) - ICD9: 518.81, ICD10: J96.01 - recently hospitalized and medications adjusted down and off Entresto. Had biventricular pacemakerand defibrillator placed and fatigue is improving. Follow up with Director Of Curriculum/surgeon Recheck labs. She is taking the metoprolol medication - COMP METABOLIC PANEL - CBC + DIFF 6. Chronic bronchitis, unspecified chronic bronchitis type (HCC) - ICD9: 491.9, ICD10: J42 - recently hospitalized and medications adjusted down and off Entresto. Had biventricular pacemakerand defibrillator placed and fatigue is improving. Follow up with Director Of Curriculum/surgeon Recheck labs. She is taking the metoprolol medication - COMP METABOLIC PANEL - CBC + DIFF 7. Atrial fibrillation, unspecified type (HCC) - ICD9: 427.31, ICD10: I48.91 - recently hospitalized and medications adjusted down and off Entresto. Had biventricular pacemakerand defibrillator placed and fatigue is improving. Follow up with Director Of Curriculum/surgeon Recheck labs. She is taking the metoprolol medication - COMP METABOLIC PANEL - CBC + DIFF 8. SVT (supraventricular tachycardia) (HCC) - ICD9: 427.89, ICD10: I47.10 - recently hospitalized and medications adjusted down and off Entresto. Had biventricular pacemakerand defibrillator placed and fatigue is improving. Follow up with Director Of Curriculum/surgeon Recheck labs. She is taking the metoprolol [...] with the plan. Mandeep Houser DO [address] [place] [address] documented in this encounterSelect Medical Specialty [facility] [place]03-08-2024 History of Present illness Narrative* Fitz Mcqueen RN - 07/20/2023 1:09 PM EST TCM Home Visit Referral Source of Stratification: [facility] Hospital Admission Status: Discharged Readmission [...] Dept Phone 07/24/2023 1:40 PM MANDEEP HOUSER [facility] [phone] 08/07/2023 2:30 PM DEVICE CLINIC CARD EPS EDENILSON Reed [phone] 08/07/2023 3:00 PM KITTY MUNOZTODILCIAWestValley [phone] 08/07/2023 3:30 PM PILI [facility] [phone] SUMMARY: Discharge Network Status: In-Network Discharge Pt discharged from [place] on 07/18/23. Admitted for: Bradycardia Contact made with patient: Yes Hi my name is Fitz Mcqueen RN and I am calling from the [facility] on behalf of your PCP, Mandeep Houser, [...] like to speak with a social work team sports sales associate to help give you support for any [...] I will send your request to a harbor engineer who will contact and assist you with [...] No Fitz Mcqueen RN documented in this encounterSelect Medical Specialty [facility] [place]03-08-2024 Miscellaneous Notes* Telephone Encounter - Cathy Munguia - 07/20/2023 10:17 AM EST PATIENT INFORMATION Record ID: [id number] Patient [facility]: [facility]: [place]: [facility] Attending: Angelica Silva Center: Hospital Medicine INSTRUCTIONS SN to remind patient of next upcoming appointment date, time, location All Clear SURVEY INFORMATION Medical/Nurse Migratory Game Bird Biologist: Cathy Prakash 1. Your discharge instructions are [...] symptoms? (Standard Question) No documented in this encounterSelect Medical Specialty [facility] [place]03-05-2024 NoteHNO ID: [id number] Author: ANGELICA SILVA MD Service: Hospital Medicine Author Type: Physician Type: Progress Notes Filed: 07/18/2023 09:37 Note Text: DEPARTMENT OF HOSPITAL MEDICINE PROGRESS NOTE SERVICE DATE: 07/17/2023 SERVICE TIME: 5:22 PM Hospital Medicine/Primary Attending: Angelica Silva MD NIGHT AND WEEKEND COVERAGE: [place] COVERAGE:Team 5 Subjective INTERVAL HPI: The patient [...] at home that made her come to [facility] Patient reports when she was off the [...] Duration Peripheral 07/15/[address] [facility] Short Right Forearm 20 Gauge 2 days Peripheral 07/16/[address] [facility] Left Wrist 20 Gauge 1 day DATA: Diagnostic tests reviewed for today's visit: Most recent labs and imaging results. 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 chronic LBBB 77 year old female, who presented to [place] ER due to concerns for chest pressure with associated postural lightheadedness and dyspnea She was subsequently admitted to [place] She had lexiscan stress test which was [...] IV Lasix And she was transferred to [facility] for consideration of inpatient DISTRICT FIRE MANAGEMENT OFFICER implantation given her left bundle branch block Pt was seen by EP and she had MDT DISTRICT FIRE MANAGEMENT OFFICER-D insertion on 08/14 In regards to heart [...] week follow up with EP ROSEMARY at [facility] office with device check prior. Medication and [...] July 17, 2023 TIME: 5:22 PM etx [id number] Recovery Center And [id number] NoteHNO ID: [id number] Author: ANGELICA SILVA MD Service: Hospital Medicine [...] levels are clinically Insignificant Other, please specify [facility] [id number] Miscellaneous Notes* Telephone Encounter - Morenita Hill APRN.CNP - 07/17/2023 11:04 AM EST Please call patient to arrange for appointment with EP ROSEMARY or Dr. Wellington with device check immediately prior at P office. If we could coordinate this for same day she is seeing Dr. Wells, that wouldbe great, in the next ~2 weeks. Thank you! Morenita Hill APRN.CNP documented in this encounterSelect Medical Specialty [facility]03-04-2024 NoteHNO ID: [id number] Author: GRISELDA SALMERON MD Service: Anesthesiology Author [...] Schmitz DATE: 2023 TIME: 5:03 PM CSN: [id number] NoteHNO ID: [id number] Author: KEKE DENG APRN.CRNA Service: ? Author Type: Nurse Eating Disorder Specialist Type: Anesthesia Procedure Notes Filed: 2023 14:19 Note Text: ANESTHESIOLOGY PROCEDURE NOTE Airway General Information Procedure Start Time/Medication Administration: 2023 1:49 PM Patient location during procedure: OR Timeout Performed Pre-procedure: timeout performed Consent Obtained: Yes Patient identity confirmed: arm band and patient Staffing HEALTH OUTCOMES LIAISON: Keke Deng APRN.CRNA Indications and Patient Condition [...] Schmitz DATE: 2023 TIME: 2:19 PM CSN: [id number] NoteHNO ID: [id number] Author: ANGELICA SILVA MD Service: Hospital Medicine Author Type: Physician Type: Progress Notes Filed: 2023 13:44 Note Text: DEPARTMENT OF HOSPITAL MEDICINE PROGRESS NOTE SERVICE DATE: 2023 SERVICE TIME: 1:41 PM Hospital Medicine/Primary Attending: Angelica Silva MD NIGHT AND WEEKEND COVERAGE: [place] COVERAGE:Team 5 Subjective INTERVAL HPI: Patient is [...] Duration Peripheral 07/15/[address] [facility] Short Right Forearm 20 Gauge 1 day DATA: Diagnostic tests reviewed for today's visit: Most recent labs and imaging results. 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 chronic LBBB 77 year old female, who presented to [facility] due to concerns for chest pressure with associated postural lightheadedness and dyspnea She was subsequently admitted to [facility] She had lexiscan stress test which was [...] IV Lasix And she was transferred to [facility] for consideration of inpatient DISTRICT FIRE MANAGEMENT OFFICER implantation given her left bundle branch block Patient currently reports significant improvement in chest pain and shortness of breath compared to admission X-ray of the chest no acute cardiopulmonary process proBNP improved Seen by EP appreciate input PT for DISTRICT FIRE MANAGEMENT OFFICER placement today Plan Continue IV Lasix ( Switch to PO soon) Monitor volume status Consulted with Dr. Wells, advanced heart failure specialist, DISTRICT FIRE MANAGEMENT OFFICER today Started on lower dose Entresto 24-26 [...] Schmitz DATE: 2023 TIME: 1:41 PM etx [id number] Recovery Center And HospitalNkkayeic93-18-6981 NoteHNO ID: [id number] Author: ANGELICA SILVA MD Service: Hospital Medicine Author Type: Physician Type: Progress Notes Filed: 07/15/2023 15:41 Note Text: DEPARTMENT OF HOSPITAL MEDICINE PROGRESS NOTE SERVICE DATE: 07/15/2023 SERVICE TIME: 3:33 PM Hospital Medicine/Primary Attending: Angelica Silva MD NIGHT AND WEEKEND COVERAGE: [place] COVERAGE:Team 5 Subjective INTERVAL HPI: Patient is [...] Duration Peripheral 07/15/[address] [facility] Short Right Forearm 20 Gauge <1 day DATA: Diagnostic tests reviewed for today's visit: Most recent labs and imaging results. 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 chronic LBBB 77 year old female, who presented to [facility] due to concerns for chest pressure with associated postural lightheadedness and dyspnea She was subsequently admitted to [facility] She had lexiscan stress test which was [...] IV Lasix And she was transferred to [facility] for consideration of inpatient DISTRICT FIRE MANAGEMENT OFFICER implantation given her left bundle branch block [...] on Sunday morning. EP tentatively planning for DISTRICT FIRE MANAGEMENT OFFICER Sunday Started on lower dose Entresto 24-26 [...] July 15, 2023 TIME: 3:33 PM etx [id number] Recovery Center And HospitalNzhczzwu63-99-0058 NoteHNO ID: [id number] Author: ANGELICA SILVA MD Service: Hospital Medicine Author Type: Physician Type: Progress Notes Filed: 07/14/2023 20:15 Note Text: DEPARTMENT OF HOSPITAL MEDICINE PROGRESS NOTE SERVICE DATE: 07/14/2023 SERVICE TIME: 8:01 PM Hospital Medicine/Primary Attending: Agnelica Silva MD NIGHT AND WEEKEND COVERAGE: [place] COVERAGE:Team 5 Subjective INTERVAL HPI: patient is [...] 77 year old female, who presented to [facility] due to concerns for chest pressure with associated postural lightheadedness and dyspnea She was subsequently admitted to [facility] She had lexiscan stress test which was [...] IV Lasix And she was transferred to [facility] for consideration of inpatient DISTRICT FIRE MANAGEMENT OFFICER implantation given her left bundle branch block Patient currently reports significant improvement in chest pain and shortness of breath compared to admission X-ray of the chest no acute cardiopulmonary process proBNP improved Seen by EP appreciate input Plan Continue IV Lasix Monitor volume status Consult with Dr. Wells, advanced heart failure specialist, on Sunday morning. EP tentatively planning for DISTRICT FIRE MANAGEMENT OFFICER Sunday Started on lower dose Entresto 24-26 [...] July 14, 2023 TIME: 8:01 PM etx [id number] Recovery Center And HospitalJhzbtomt57-00-9233 NoteHNO ID: [id number] Author: ESTELITA LAMB APRN.CNP Service: Cardiovascular Medicine Author Type: Nurse Practitioner Type: Progress Notes Filed: 07/13/2023 09:28 Note Text: Heart and Vascular [facility] [place] [facility] Department of Cardiovascular Medicine SECTION OF [facility] CARDIOLOGY/[facility] Progress Note Elements of this note, including [...] DO Consulting Physician: Remington Cai MD Primary Director Of Curriculum: Dr. Oneill SERVICE DATE: July 13, 2023 [...] with SOB, chest pain and lightheadedness - [facility] 10/2021: Moderate LAD and D1 proximal disease [...] - QRS = 176 mx - pending DISTRICT FIRE MANAGEMENT OFFICER-D implant Palpitations - present CTO - zio 06/2023: Patient had a min [...] noted on admission - call placed to [facility] EP service to discuss considerations for expedited DISTRICT FIRE MANAGEMENT OFFICER-D CAD - chest pain on admission has resolved - [facility] 10/2021: Moderate LAD and D1 proximal disease [...] last evening who agrees with transfer to [facility] for refractory HF despite medical therapy. Patient pending transfer to [facility] via medicine team with consults to EP and advanced heart failure. Patient aware of plan and agreeable. Case discussed with Dr. Lobo and nursing staff. Estelita Lamb APRN.MEDICAL SCIENTIST 07/13/2023 9:21 AM PAST MEDICAL HISTORY [...] EGD 11/08/2012 (more content not included)...[facility] CenterGkmzaafg49-80-9848 Miscellaneous Notes* Telephone Encounter - Rahul Bee MD - 07/13/2023 7:23 AM EST Hospital Medicine Transfer Received page for transfer request from [facility] to [facility]: Sandra Schmitz is 77 year old female who presented with non ischemic decompensated heart failure EF 26%. Suspected runs of tachycardia of unclear origin. Being transferred for possible DISTRICT FIRE MANAGEMENT OFFICER. Cannot tolerate betablocker. Currently SBP in 100s. No ICD before. Mild CAD. Reason for transfer: Possible DISTRICT FIRE MANAGEMENT OFFICER placement Accepted to hospital medicine service at 7:26PM Rahul Bee MD 7:23 AM documented in this encounterSelect [facility] [place]02-29-2024 NoteHNO ID: [id number] Author: ESTELITA LAMB APRN.MEDICAL SCIENTIST Service: Cardiovascular Medicine Author Type: Nurse Practitioner Type: Progress Notes Filed: 07/12/2023 18:56 Note Text: Heart and Vascular [facility] [place] [facility] Department of Cardiovascular Medicine SECTION OF [facility] CARDIOLOGY/[facility] Progress Note Elements of this note, including [...] DO Consulting Physician: Remington Cai MD Primary Director Of Curriculum: Dr. Oneill SERVICE DATE: July 12, 2023 [...] with SOB, chest pain and lightheadedness - [facility] 10/2021: Moderate LAD and D1 proximal disease [...] 0.9 kg since admission LBBB - pending DISTRICT FIRE MANAGEMENT OFFICER-D implant Palpitations - present CTO - zio 06/2023: Patient had a min [...] noted on admission - call placed to [facility] EP service to discuss considerations for expedited DISTRICT FIRE MANAGEMENT OFFICER-D CAD - chest pain on admission has resolved - [facility] 10/2021: Moderate LAD and D1 proximal disease [...] Castro and nursing staff. Estelita Lamb APRN.MEDICAL SCIENTIST 07/12/2023 1:26 PM ADDENDUM: Echo today shows EF 26% Discussed patient with Dr. Wellington ant [facility] who is agreeable for patient transfer for refractory heart failure despite medications. We will start transfer process via medicine team with consult to EP and advanced heart failure at [facility]. Consideration for DISTRICT FIRE MANAGEMENT OFFICER-D implant per Dr. Wellington and EP team. Estelita Lamb APRN.MEDICAL SCIENTIST 07/12/23 6:55 PM PAST MEDICAL HISTORY PAST MEDICAL HISTORY Diagnosis Date Acute acalculous cholecystitis 05/30/2020 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 09/22/2020 Acute on chronic systolic CHF (congestive heart failure) (HCC) 05/03/2020 Aspiration pneumonia ([facility]) 05/30/2020 Chest pain 05/03/2020 Chest pressure [...] SURGICAL HIST (more content not included)...[facility] [id number] Note HNO ID: [id number] Author: REMINGTON CAI MD Service: Hospital Medicine Author Type: Physician Type: Progress Notes Filed: 07/12/2023 10:40 Note Text: DEPARTMENT OF HOSPITAL MEDICINE PROGRESS NOTE SERVICE DATE: 07/12/2023 SERVICE TIME: 9:21 AM Hospital Medicine/Primary Attending: Remington Cai MD NIGHT AND WEEKEND COVERAGE: [place] COVERAGE: Nights: [phone], please page [facility] Night coverage pager [phone]. Reason for Admission: Acute decompensated heart failure concern for ventricular tachycardia being the precipitating factor INTERVAL HPI: I called electrophysiology and they had no openings. Could page 2 [facility] re[facility] rn on-call Dr. Castro who will see if Dr. Wellington at [facility] did not do the pacer defibrillator. My [...] fibrillation. She has seen Dr. Greenfield the rehab rn. She is to be scheduled for pacer [...] Dr. Virk (more content not included)...[facility] CenterDcicoaiq19-40-6493 NoteHNO ID: [id number] Author: ESTELITA LAMB APRN.TIM Service: Cardiovascular Medicine Author Type: Nurse Practitioner Type: Plan of Care Filed: 07/11/2023 15:22 Note Text: Patient stress test reviewed. Shows no ischemia but low EF. Echo planned for tomorrow. Pending DISTRICT FIRE MANAGEMENT OFFICER-D as OP >>> Dr. Sams is facilitating discussion on timing of implant. Will follow. Estelita Lamb APRN.MEDICAL SCIENTIST Cardiology Nurse Practitioner Section of Regional Cardiology [facility] Dept of Cardiovascular Medicine [facility] Heart and Vascular [facility] [address] [address] Office Office Jbljdy [id number] NoteHNO ID: [id number] Author: REMINGTON CAI MD Service: Hospital Medicine Author Type: Physician Type: Progress Notes Filed: 07/11/2023 14:17 Note Text: DEPARTMENT OF HOSPITAL MEDICINE PROGRESS NOTE SERVICE DATE: 07/11/2023 SERVICE TIME: 1:06 PM Hospital Medicine/Primary Attending: Remington Cai MD NIGHT AND WEEKEND COVERAGE: [place] COVERAGE: Nights: [phone], please page [facility] Night coverage pager [phone]. Reason for Admission: Acute decompensated heart failure [...] beta-lorenzo held Nuclear stress test-see below [employer] message sent to concerning pacer defibrillator placement [...] fibrillation. She has seen Dr. Greenfield the rehab rn. She is to be scheduled for pacer [...] chronic systolic (more content not included)...[facility] 06-12-2023 NoteHNO ID: [id number] Author: FLACA GREENFIELD MD Service: ? Author Type: Physician Type: Progress Notes Filed: 06/12/2023 16:02 Note Text: Heart and Vascular [facility] SECTION OF CARDIAC PACING and ELECTROPHYSIOLOGY OUTPATIENT VISIT DATE June 12, 2023 OUTPATIENT VISIT TYPE NEW PRIMARY CARE PHYSICIAN: Mandeep Houser [address] [place] [address] REFERRING PHYSICIAN: Santo Oneill MD. HISTORY OF PRESENT ILLNESS: 77-year-old female with history of nonischemic cardiomyopathy, severe LV systolic function, LVEF of 30% despite GDMT, LBBB with QRS of 170 ms, was referred for consideration of DISTRICT FIRE MANAGEMENT OFFICER-D system implantation for prevention of sudden cardiac [...] on chronic systolic CHF (congestive heart failure) ([facility]) 05/03/2020 Aspiration pneumonia ([facility]) 05/30/2020 Chest pain 05/03/2020 Chest pressure 01/23/2013 Chronic diastolic congestive heart failure ([facility]) 02/14/2021 Clostridium difficile diarrhea 09/28/2020 Complete uterovaginal prolapse Cystocele, midline Essential hypertension 06/14/2020 Homozygous Factor V Leiden mutation ([facility]) 05/03/2020 Hypothyroidism IBS (irritable bowel syndrome) [...] Arm Large Adult Physic (more content not included)...[facility]01-04-2024 History of Present illness Narrative* Luzma [...] 17, 2023 1:31 PM documented in this encounterSelect Medical [facility]ty [facility] [place]12-14-2023 Miscellaneous Notes* Telephone Encounter - Bria Shah MA - 04/26/2023 2:37 PM EST Patient notified of results, verbalizes understanding of instructions. Bria Shah MA * Telephone Encounter - Mandeep Houser DO - 04/26/2023 2:24 PM EST Please inform patient that her mammogram is normal/negative. She will need routine screening mammogram in 1 year. Thanks CELIA Gamez documented in this encounterSelect Medical Specialty Hospital [facility] [place]12-12-2023 Miscellaneous Notes* Telephone Encounter - Vinita Harman - 04/24/2023 2:06 PM EST Patient is scheduled at on 05/28/[address] Angel Gaxiola. * Telephone Encounter - Mandeep Houser DO - 04/17/2023 4:59 PM EST Patient is supposed to be seen by Supervisor [employer] Charge Loading / Cardiology per recommendations by Dr. Oneill. She is asking office if this is scheduled yet? Please clarify Mandeep Houser DO documented in this encounterSelect Medical Specialty Hospital - [place]11-27-2023 History of Present illness Narrative* Santo Oneill MD - 04/09/2023 5:19 PM EST Images from the original note were not included. Santo Oneill MD Interventional Cardiology [address] [place] [address] Chief Complaint Patient presents with: Established Patient [...] to correct any errors. 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 No fevers or chills. Present the last few weeksoff and on PAST MEDICAL HISTORY Diagnosis Date Acute acalculous cholecystitis 05/30/2020 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 09/22/2020 Acute on chronic systolic CHF (congestive heart failure) ([facility]) 05/03/2020 Aspiration pneumonia ([facility]) 05/30/2020 Chest pain 05/03/2020 Chest pressure 01/23/2013 Chronic diastolic congestive heart failure ([facility]) 02/14/2021 Clostridium difficile diarrhea 09/28/2020 Complete uterovaginal prolapse Cystocele, midline Essential hypertension 06/14/2020 Homozygous Factor V Leiden mutation ([facility]) 05/03/2020 Hypothyroidism IBS (irritable bowel syndrome) [...] plan. See patient instructions. Mandeep Houser DO [address] [place] [address] documented in this encounterSelect Medical Specialty [facility] [place]08-29-2023 Instructions* Patient Instructions* Mandeep Houser DO - 01/09/2023 1:53 PM EDT Decrease dose of thyroid medication to 88 mcg a day, new rx sent [facility] Recheck labs in 1 month, these are ordered. Can be done non fasting If front of neck symptoms aren't better, I will order ultrasound. Let me konw documented in this encounterSelect Medical Specialty Hospital [facility] [place]08-29-2023 Miscellaneous Notes* Telephone Encounter - Sandra Malave [...] and advise. Sandra Wells documented in this encounterSelect Medical Specialty Hospital - [place]08-17-2023 Miscellaneous Notes* Telephone Encounter - Rupali Nascimento [...] when able. Thank you. documented in this encounterSelect Medical Specialty [facility] [place]08-08-2023 Miscellaneous Notes* Telephone Encounter - Alejandrina Barnes LPN - 12/19/2022 8:59 AM EDT Patient notified. Verbalized understanding. * Telephone Encounter - Mandeep Houser DO - 12/19/2022 8:08 AM EDT Please inform patient that her CXR is normal Mandeep Houser DO documented in this encounterSelect Medical Specialty [facility] [place]08-03-2023 History of Present illness Narrative* Faye Aguirre [...] 14, 2022 10:38 AM documented in this encounterSelect Medical Specialty [facility] [place]06-19-2023 Miscellaneous Notes* Telephone Encounter - Leyla Ferreira RN - 10/30/2022 10:48 AM EDT Addendum completed by Dr. Mata and faxed to [employer]. * Telephone Encounter - Sincere Berger RN - 10/24/2022 1:25 PM EDT Received fax from [employer] requesting addendum to 08/[address]. [address] Testrakes desk. documented in this encounterSelect Medical [facility]ty [facility] [place]06-04-2023 Miscellaneous Notes* Telephone Encounter - Estelita Pinon [...] care provider or schedule a visit with [facility]. A test is not recommended to return to work/school when meeting the above criteria. Estelita Pinon APRN.CNP documented in this encounterSelect Medical Specialty [facility] [place]06-03-2023 History of Present illness Narrative* Shanell Cox [...] plan. Shanell Cox APRN.CNP documented in this encounterSelect Medical Specialty [facility] [place]05-31-2023 History of Present illness Narrative* Mandeep Houser [...] on chronic systolic CHF (congestive heart failure) ([facility]) 05/03/2020 Aspiration pneumonia ([facility]) 05/30/2020 Chest pain 05/03/2020 Chest pressure 01/23/2013 Chronic diastolic congestive heart failure ([facility]) 02/14/2021 Clostridium difficile diarrhea 09/28/2020 Complete uterovaginal prolapse Cystocele, midline Essential hypertension 06/14/2020 Homozygous Factor V Leiden mutation ([facility]) 05/03/2020 Hypothyroidism IBS (irritable bowel syndrome) [...] if no improvement. Follow up with Mandeep Houesr DO. To ER if develops chest pain, shortness of breath Discussed risks, benefits, alternatives, and potential side effects of medications. Patient/Guardian expressed understanding and agreed with the plan. See patient instructions. Mandeep Houser DO [address] [place] [address] documented in this encounterSelect Medical Specialty [facility] [place]05-11-2023 Miscellaneous Notes* Telephone Encounter - Leyla Ferreira RN - 09/21/2022 2:51 PM EDT Refaxed forms to [employer]. * Telephone Encounter - Rachelle Stout LPN - 09/21/2022 1:38 PM EDT Shana varner called stating that fax sent only came thru as every other page and the whole fax was not received. Please refax paper work to [phone] Rachelle Stuot LPN documented in this encounterSelect Medical Specialty Hospital [facility] [place]05-01-2023 Miscellaneous Notes* Telephone Encounter - Sincere Berger RN - 09/11/2022 11:44 AM EDT Received fax from [employer] for Orthosis order. Forms filled out and signed by Dr. Mata andfaxed back to [place] with office notes. 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 Feels like she could at times. No blood in stool. Symptoms worsening over weeks time PAST MEDICAL HISTORY Diagnosis Date Acute acalculous cholecystitis 05/30/2020 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 09/22/2020 Acute on chronic systolic CHF (congestive heart failure) ([facility]) 05/03/2020 Aspiration pneumonia ([facility]) 05/30/2020 Chest pain 05/03/2020 Chest pressure 01/23/2013 Chronic diastolic congestive heart failure ([facility]) 02/14/2021 Clostridium difficile diarrhea 09/28/2020 Complete uterovaginal prolapse Cystocele, midline Essential hypertension 06/14/2020 Homozygous Factor V Leiden mutation ([facility]) 05/03/2020 Hypothyroidism IBS (irritable bowel syndrome) [...] See patient instructions. Mandeep Houser DO [address] [place] [address] documented in this encounterSelect Medical Specialty [facility] [place]04-03-2023 History of Present illness Narrative* Santo Oneill MD - 08/14/2022 11:58 AM EDT Images from the original note were not included. Santo Oneill MD Interventional Cardiology [facility] [address], [place] [address] [phone] Chief Complaint Patient presents with: Established Patient [...] on chronic systolic CHF (congestive heart failure) ([facility]) 05/03/2020 Aspiration pneumonia ([facility]) 05/30/2020 Chest pain 05/03/2020 Chest pressure 01/23/2013 Chronic diastolic congestive heart failure ([facility]) 02/14/2021 Clostridium difficile diarrhea 09/28/2020 Complete uterovaginal prolapse Cystocele, midline Essential hypertension 06/14/2020 Homozygous Factor V Leiden mutation ([facility]) 05/03/2020 Hypothyroidism IBS (irritable bowel syndrome) [...] INSTRUCTIONS Patient Name: Sandra Schmitz Clinic Number: [id number] Skin prepped and cleansed with alcohol Patch secured to prepped area Monitor Activated Serial #: [id number] Patient Instructed: Prescribed order timeframe Bathing guidelines Usage of event button and diary documentation Return of monitor at the end of prescribed order Call with problems [phone] or [phone]. [phone] Patient expresses a good understanding of instructions Anni Roldan * Santo Oneill MD - 08/14/2022 11:57 AM EDT Images from the original note were not included. Santo Oneill MD Interventional Cardiology [facility] [address], [place] [address] [phone] Chief Complaint Patient presents with: Established Patient [...] to correct any errors. 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 Right mid [...] on chronic systolic CHF (congestive heart failure) ([facility]) 05/03/2020 Aspiration pneumonia ([facility]) 05/30/2020 Chest pain 05/03/2020 Chest pressure 01/23/2013 Chronic diastolic congestive heart failure ([facility]) 02/14/2021 Clostridium difficile diarrhea 09/28/2020 Complete uterovaginal prolapse Cystocele, midline Essential hypertension 06/14/2020 Homozygous Factor V Leiden mutation ([facility]) 05/03/2020 Hypothyroidism IBS (irritable bowel syndrome) [...] plan. See patient instructions. Mandeep Houser DO [address] [place] [address] documented in this encounterSelect Medical [facility]ty [facility]03-30-2023 History of Present illness Narrative* Mandeep Houser [...] on chronic systolic CHF (congestive heart failure) ([facility]) 05/03/2020 Aspiration pneumonia ([facility]) 05/30/2020 Chest pain 05/03/2020 Chest pressure [...] plan. See patient instructions. Mandeep Houser DO [address] [place] [address] documented in this encounterSelect Medical Specialty [facility]03-23-2023 History of Present illness Narrative* Linda Juarez [...] 03, 2022 10:33 AM documented in this encounter[facility] [place] Miscellaneous Notes* Telephone Encounter - Palak Jacobson [...] day Alejandrina Harvey APRN.CNP documented in this encounterSelect [facility] [place]03-14-2023 History of Present illness Narrative* Abraham Ibarra [...] 25, 2022 3:03 PM documented in this encounterSelect [facility] [place]03-10-2023 Instructions* Patient Instructions* Alejandrina Harvey APRN.CNP - [...] your usual activities immediately. documented in this encounterSelect [facility] [place]03-10-2023 History of Present illness Narrative* Alejandrina Harvey [...] on chronic systolic CHF (congestive heart failure) ([facility]) 05/03/2020 Aspiration pneumonia ([facility]) 05/30/2020 Chest pain 05/03/2020 Chest pressure [...] Z13.820 - DXA-AXIAL SKELETON Alejandrina Harvey APRN.MEDICAL SCIENTIST documented in this encounterSelect [facility] [place]03-07-2023 History of Present illness Narrative* Mandeep Houser, [...] plan. See patient instructions. Mandeep Houser DO [address] [place] [address] documented in this encounterSelect [facility] [place]01-12-2023 Miscellaneous Notes* Telephone Encounter - Griselda Harris [...] concerns. Mandeep Houser DO documented in this encounterSelect [facility] [place]01-03-2023 Miscellaneous Notes* Telephone Encounter - Leyla Ferreira [...] pharmacy's request. Please send RX to [facility] [place]. documented in this encounterSelect [facility] [place]12-21-2022 History of Present illness Narrative* Mandeep Houser [...] See patient instructions. Mandeep Houser DO [address] [place] [address] documented in this encounterSelect [facility] [place]12-21-2022 Miscellaneous Notes* Telephone Encounter - Mandeep Houser [...] Please advise the patient. documented in this encounterSelect [facility] [place]11-23-2022 History of Present illness Narrative* Enmanuel Sahu - 04/05/2022 11:02 AM EST POPULATION HEALTH NAVIGATION OUTREACH Action/I RP Outreach: Contacted patient to schedule ROBEL Consult for Chronic pain of right ankle [M25.571, G89.29] and patient requested to call back [phone]. Any agent can assist. Pt identified by name and : YES, via [employer] Outreach Outcome/Action Spoke to patient or caregiver: [...] 05, 2022 11:03 AM documented in this encounterSelect [facility] [place]11-18-2022 History of Present illness Narrative* Santisujit Sahu - 03/31/2022 2:07 PM EST POPULATION HEALTH NAVIGATION OUTREACH Action/I RP Outreach: LVM for Patient to call back and schedule ROBEL Consult for Chronic pain of right ankle [M25.571, G89.29]. [phone]. Any agent can assist. Pt identified by name and : YES, via [employer] Outreach Outcome/Action Unable to reach patient: Left [...] 31, 2022 2:07 PM documented in this encounterSelect [facility] [place]10-31-2022 Miscellaneous Notes* Telephone Encounter - Kelsey Costa LPN - 03/13/2022 9:59 AM EDT Pt. informed, * Telephone Encounter - Alejandrina Harvey APRN.CNP - 03/13/2022 7:45 AM EDT Please let Sandra know that her COVID and flu tests are negative. Alejandrina Harvey APRN.CNP documented in this encounterSelect [facility] [place]10-28-2022 Miscellaneous Notes* Telephone Encounter - Griselda Harris Ma - 03/10/2022 11:08 AM EDT Faxed 03/10/2022 BRANDI Harris Ma * Telephone Encounter - Alejandrina Harvey APRN.CNP - 03/10/2022 10:14 AM EDT Please fax podiatry consult to Dr. Contreras's office. Alejandrina Harvey APRN.CNP documented in this encounterSelect [facility] [place]10-03-2022 History of Present illness Narrative* Santo Oneill MD - 02/13/2022 12:21 PM EDT Images from the original note were not included. Santo Oneill MD Interventional Cardiology [address] [place] [address] Chief Complaint Patient presents with: Follow Up [...] on chronic systolic CHF (congestive heart failure) ([facility]) 05/03/2020 Aspiration pneumonia ([facility]) 05/30/2020 Chest pain 05/03/2020 Chest pressure [...] 1 tablet by mouth once daily. 90 [id number] L. acidophilus/L. rhamnosus ([facility]) Take [...] to correct any errors. documented in this encounterSelect [facility] [place]09-09-2022 History of Present illness Narrative* Alejandrina Harvey, MELI.MEDICAL SCIENTIST - 01/20/2022 10:51 AM EDT Chief Complaint Patient presents with: Follow Up: Review lab work HPI Sandra Schmitz is a 76 year old female who presents here today for Above Complaints. Today: Would like to review her lab results today. Knows that her cholesterol still elevated, but has not tolerated Lipitor or Crestor. 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 4. 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 Kidney function, electrolytes and liver function arestable. Cholesterol is elevated. Is she able to tolerate/taking 5 mg of Crestor? Thank you, Saqib. MELI Culp.MEDICAL SCIENTIST documented in this encounterSelect [facility] [place]08-16-2022 Miscellaneous Notes* Telephone Encounter - Anni Herrera [...] you. Anni Herrera LPN documented in this encounterSelect Medical Specialty [facility] [place]08-08-2022 Instructions* Patient Instructions* Sincere Perkins PA-C - 12/19/2021 9:33 AM EDT The following instructions are important for you related to your office visit today with the [facility]. -Continue omeprazole for 1-2 [...] you should contact our office immediately @ [phone] and ask to be transferred to the General Surgery department. documented in this encounterSelect [facility] [place]08-08-2022 History of Present illness Narrative* Sincere Perkins PA-C - 12/19/2021 9:15 AM EDT FOLLOW UP VISIT - ENDOSCOPY NAME: Sandra Ricardo [facility] NO.: [id number] DATE OF SERVICE: 12/19/2021 : 1945 REFERRING PHYSICIAN: Mandeep Houser DO Sandra is a patient I am following with Dr. Marshall for history of colon polyps as well as upper GI complaints. Dr. Marshall performed upper and lower endoscopy on 12/05/21 at [facility]. The patient was found to have gastritis [...] which included preparing to see the patient, [id number] patient care, completing clinical documentation, obtaining and/or reviewing separately obtained history, counseling and educating the patient/family/caregiver, independently interpretin g results (not separately reported), and communicating results to the patient/family/caregiver. Sincere Perkins PA-C documented in this encounterSelect [facility] [place]07-28-2022 Miscellaneous Notes* Telephone Encounter - Rula Lopez RN - 12/08/2021 11:11 AM EDT Pt. notified. Please send refill for Losartan to [facility]. Thank you. Rula Lopez RN * Telephone Encounter - uRla Lopez RN - 12/08/2021 11:11 AM EDT Images from the original note were not included. Estelita Culp APRN.MEDICAL SCIENTIST You; Santo Oneill MD 12 minutes [...] hears back from someone. documented in this encounterSelect [facility] [place]07-25-2022 History and physical note * Wes Marshall [...] SIGNATURE: Wes Marshall MD PATIENT NAME: Sandra Scmhitz DATE: December 05, 2021 TIME: 9:37 AM [...] a colonoscopy performed by Dr. Marshall in [place] for 04/04/21, however procedure was cancelled. Patient [...] patient was offered a surgery/procedure at [facility]. I have counseled the patient regarding [...] mail. Sincere Perkins PA-C documented in this encounterSelect [facility] [place]07-19-2022 Miscellaneous Notes* Telephone Encounter - Sincere Perkins [...] upper and lower scope with [facility] in [place] and is on miralax/dulcalax as her prep [...] moved up to 12/05 with [facility] in [place] for upper and lower scopes. LV of [...] 02/20/2022 colon egd ko documented in this encounterSelect [facility] [place]07-19-2022 Miscellaneous Notes* Telephone Encounter - Rula Lopez [...] stomach problems. Please advise. documented in this encounterSelect Medical [facility]ty [facility] [place]06-23-2022 History of Present illness Narrative* Vinita Flores Pss - 11/03/2021 3:26 PM EDT Patient seen by Elisha Perkins on 11/02 for consult. * Dejan Lorenzo - 11/01/2021 11:45 AM EDT Patient due for screening colonoscopy . Patient is not appropriate for open access. Please scheduleoffice consult Dejan Lorenzo documented in this encounterSelect Medical [facility]ty [facility] [place]06-23-2022 History of Present illness Narrative* Sincere Perkins [...] a colonoscopy performed by Dr. Marshall in [place] for 04/04/21, however procedure was cancelled. Patient [...] entered by the nurse and reviewed by dc Nursing Notes: Maritza Contreras LPN 11/02/2021 1:34 [...] patient was offered a surgery[facility]procedure [facility]. I have counseled the patient regarding [...] mail. Sincere Perkins PA-C documented in this encounterSelect [facility] [place]06-22-2022 Nurse Note* Maritza Contreras LPN - 11/02/2021 [...] 2020 Maritza Contreras LPN documented in this encounterSelect [facility] [place]06-16-2022 Miscellaneous Notes* Telephone Encounter - Estelita Hermosillo LPN - 10/27/2021 10:51 AM EDT I spoke to and informed her of Estelita's response to lab results. Patient voiced understanding. Estelita Hermosillo LPN * Telephone Encounter - Estelita Hermosillo LPN - 10/27/2021 10:50 AM EDT ----- Message from Estelita Culp APRN.MEDICAL SCIENTIST sent at 10/27/2021 10:39 AM EDT ----- Please call patient and notify her of results. BMP and CBC stable. Thank you! documented in this encounterSelect Medical [facility]ty [facility] [place]06-16-2022 History of Present illness Narrative* RT Dayanna(R) [...] 2021 TIME: 1:36 PM documented in this encounterSelect [facility] [place]06-13-2022 Miscellaneous Notes* Telephone Encounter - Kelsey Shannon RN - 10/24/2021 4:00 PM EDT Patient scheduled for left heart cath, with Dr Oneill on 11/10/21. Instructions reviewed. Questions answered. Patient verbalized understanding. Instructions were as follows: -Arrive to [facility] H&V Entrance at time assigned by [facility] veterinary laboratory diagnostician staff in phone call 2-5 PM on [...] someone drive you home from your procedure. -veterinary laboratory diagnostician policy is pt not be alone first evening Office phone number provided for questions or concerns. Kelsey Shannon RN * Telephone Encounter - Luzma Tejeda [facility] [place] 10/24/2021 1:33 PM EDT Schedule C on 11/10/[address] Oneill documented in this encounterSelect [facility] [place]06-13-2022 History of Present illness Narrative* Kelsey Costa [...] Dr Ragsdale after CT documented in this encounterSelect [facility] [place]06-08-2022 Instructions* Patient Instructions* Alejandrina Harvey APRN.CNP - 10/19/2021 12:28 PM EDT Schedule your CT scan of your abdomen and pelvis. I'll get back with you in regards to the clearance for you colonoscopy. documented in this encounterSelect [facility] [place]06-08-2022 History of Present illness Narrative* Alejandrina Harvey [...] PROCEDURE) Alejandrina Harvey APRN.TIM documented in this encounterSelect Medical [facility]ty [facility] [place]05-11-2022 History of Present illness Narrative* Mandeep Houser [...] on chronic systolic CHF (congestive heart failure) ([facility]) 05/03/2020 Aspiration pneumonia ([facility]) 05/30/2020 Chest pain 05/03/2020 Chest pressure 01/23/2013 Chronic diastolic congestive heart failure ([facility]) 02/14/2021 Clostridium difficile diarrhea 09/28/2020 Complete uterovaginal prolapse Cystocele, midline Essential hypertension 06/14/2020 Homozygous Factor V Leiden mutation ([facility]) 05/03/2020 Hypothyroidism IBS (irritable bowel syndrome) [...] plan. See patient instructions. Mandeep Houser DO [address] [place] [address] documented in this encounterSelect Medical [facility]ty [facility] [place]05-09-2022 Miscellaneous Notes* Telephone Encounter - Griselda Harris [...] Provider: ALEJANDRINA HARVEY APRN.CNP documented in this encounterSelect Medical [facility]ty [facility] [place]04-22-2022 Miscellaneous Notes* Telephone Encounter - Griselda Harris [...] appointment. Alejandrina Harvey APRN.CNP documented in this encounterSelect Medical [facility]ty [facility] [place]04-21-2022 Instructions* Patient Instructions* Alejandrina Harvey APRN.CNP - 09/01/2021 3:57 PM EDT Have your xrays completed. I typically have results in 24 hours or less. Have your lab work completed, fasting, when able. We typically have results in 1-2 days. documented in this encounter[address]21-2022 History of Present illness Narrative* Alejandrina Yasir, AQUATIC LIFE LABORER.MEDICAL SCIENTIST - 09/01/2021 3:40 PM EDT Patient [...] on chronic systolic CHF (congestive heart failure) ([facility]) 05/03/2020 Aspiration pneumonia ([facility]) 05/30/2020 Chest pain 05/03/2020 Chest pressure 01/23/2013 Chronic diastolic congestive heart failure ([facility]) 02/14/2021 Clostridium difficile diarrhea 09/28/2020 Complete uterovaginal prolapse Cystocele, midline Essential hypertension 06/14/2020 Homozygous Factor V Leiden mutation ([facility]) 05/03/2020 Hypothyroidism IBS (irritable bowel syndrome) [...] R79.9 - HGB A1C Alejandrina Harvey APRN.MEDICAL SCIENTIST To ER if develops chest pain, shortness of breath, or severe worsening of symptoms. Discussed risks, benefits, alternatives, and potential side effects of medications. Patient expressed understanding and agreed with the plan. Alejandrina Harvey APRN.MEDICAL SCIENTIST [address] [place] [address] documented in this encounterSelect [facility] [place]04-18-2022 Miscellaneous Notes* Telephone Encounter - Griselda Harris Ma - 08/29/2021 1:42 PM EDT Pt scheduled with RS to [facility] care Griselda Harris Ma * Telephone [...] if okay to schedule. documented in this encounterSelect [facility] [place]04-12-2022 History of Present illness Narrative* Farzana Rodriguez [...] 23, 2021 10:23 AM documented in this encounterSelect [facility] [place]04-04-2022 Miscellaneous Notes* Letter - Mammography Coordinator - 08/15/2021 1:00 PM EDT August 15, 2021 PID: [id number] Sandra Schmitz [address] [place] [address] Dear Ms. Schmitz, We are pleased to [...] report will be [facility] as part of your permanent medical record and are available for your continuing care. Thank you for allowing us to help in meeting your health care needs. Sincerely, Dr. Zendejas Interpreting Radiologist (Normal over 40) documented in this encounterSelect Medical [facility]ty [facility] [place]04-04-2022 History of Present illness Narrative* Polina Castaneda, [...] 15, 2021 9:50 AM documented in this encounterSelect [facility] [place]03-29-2022 History of Present illness Narrative* Estelita Maradiaga, [...] treatment included: Therapeutic exercise, Manual therapy, Self- senior care management and Patient/Family/Caregiver Education. Pt. Reports reduced [...] 07/11/21 through 09/05/21 Goals updated on 08/09/2021. [place] in home exercise program. -- PARTIALLY MET [...] the elbow felt somewhat looser after the [facility] last visit but then returned back to [...] and function . Patient education as noted. Self-Correction Management: 1: *advised pt. to avoid carrying [...] 30 Estelita Maradiaga PT documented in this encounterSelect [facility] [place]08-25-2021 History of Present illness Narrative* Nely Carrasquillo [...] 05, 2021 10:18 AM documented in this encounterSelect [facility] [place]03-22-2021 History of Present illness Narrative* Luzma VegaRt)Marino [...] 02, 2020 12:14 PM documented in this encounterSelect [facility] [place]01-17-2021 History of Past illness Narrative* Problem Noted Date Resolved Date Aspiration pneumonia 05/30/2020 09/22/2020 Post-operative state 05/24/2020 06/14/2020 Shortness of breath 05/03/2020 06/14/2020 Chest pain 05/03/2020 06/14/2020 documented as of this encounter (statuses as of 08/09/2021) [address]17-2021 History of Past illness Narrative* Problem Noted Date Resolved Date Aspiration pneumonia 05/30/2020 09/22/2020 Post-operative state 05/24/2020 06/14/2020 Shortness of breath 05/03/2020 06/14/2020 Chest pain 05/03/2020 06/14/2020 documented as of this encounter (statuses as of 08/16/2021) [address]17-2021 History of Past illness Narrative* Problem Noted Date Resolved Date Aspiration pneumonia 05/30/2020 09/22/2020 Post-operative state 05/24/2020 06/14/2020 Shortness of breath 05/03/2020 06/14/2020 Chest pain 05/03/2020 06/14/2020 documented as of this encounter (statuses as of 08/17/2021) [address]17-2021 History of Past illness Narrative* Problem Noted Date Resolved Date Aspiration pneumonia 05/30/2020 09/22/2020 Post-operative state 05/24/2020 06/14/2020 Shortness of breath 05/03/2020 06/14/2020 Chest pain 05/03/2020 06/14/2020 documented as of this encounter (statuses as of 08/23/2021) [address]17-2021 History of Past illness Narrative* Problem Noted Date Resolved Date Aspiration pneumonia 05/30/2020 09/22/2020 Post-operative state 05/24/2020 06/14/2020 Shortness of breath 05/03/2020 06/14/2020 Chest pain 05/03/2020 06/14/2020 documented as of this encounter (statuses as of 09/02/2021) [address]17-2021 History of Past illness Narrative* Problem Noted Date Resolved Date Aspiration pneumonia 05/30/2020 09/22/2020 Post-operative state 05/24/2020 06/14/2020 Shortness of breath 05/03/2020 06/14/2020 Chest pain 05/03/2020 06/14/2020 documented as of this encounter (statuses as of 09/07/2021) [address]17-2021 History of Past illness Narrative* Problem Noted Date Resolved Date Aspiration pneumonia 05/30/2020 09/22/2020 Post-operative state 05/24/2020 06/14/2020 Shortness of breath 05/03/2020 06/14/2020 Chest pain 05/03/2020 06/14/2020 documented as of this encounter (statuses as of 09/19/2021) [address]17-2021 History of Past illness Narrative* Problem Noted Date Resolved Date Aspiration pneumonia 05/30/2020 09/22/2020 Post-operative state 05/24/2020 06/14/2020 Shortness of breath 05/03/2020 06/14/2020 Chest pain 05/03/2020 06/14/2020 documented as of this encounter (statuses as of 09/21/2021) [address]17-2021 History of Past illness Narrative* Problem Noted Date Resolved Date Aspiration pneumonia 05/30/2020 09/22/2020 Post-operative state 05/24/2020 06/14/2020 Shortness of breath 05/03/2020 06/14/2020 Chest pain 05/03/2020 06/14/2020 documented as of this encounter (statuses as of 09/29/2021) [address]17-2021 History of Past illness Narrative* Problem Noted Date Resolved Date Aspiration pneumonia 05/30/2020 09/22/2020 Post-operative state 05/24/2020 06/14/2020 Shortness of breath 05/03/2020 06/14/2020 Chest pain 05/03/2020 06/14/2020 documented as of this encounter (statuses as of 10/20/2021) [address]17-2021 History of Past illness Narrative* Problem Noted Date Resolved Date Aspiration pneumonia 05/30/2020 09/22/2020 Post-operative state 05/24/2020 06/14/2020 Shortness of breath 05/03/2020 06/14/2020 Chest pain 05/03/2020 06/14/2020 documented as of this encounter (statuses as of 10/24/2021) [address]17-2021 History of Past illness Narrative* Problem Noted Date Resolved Date Aspiration pneumonia 05/30/2020 09/22/2020 Post-operative state 05/24/2020 06/14/2020 Shortness of breath 05/03/2020 06/14/2020 Chest pain 05/03/2020 06/14/2020 documented as of this encounter (statuses as of 10/27/2021) [address]17-2021 History of Past illness Narrative* Problem Noted Date Resolved Date Aspiration pneumonia 05/30/2020 09/22/2020 Post-operative state 05/24/2020 06/14/2020 Shortness of breath 05/03/2020 06/14/2020 Chest pain 05/03/2020 06/14/2020 documented as of this encounter (statuses as of 10/28/2021) [address]17-2021 History of Past illness Narrative* Problem Noted Date Resolved Date Aspiration pneumonia 05/30/2020 09/22/2020 Post-operative state 05/24/2020 06/14/2020 Shortness of breath 05/03/2020 06/14/2020 Chest pain 05/03/2020 06/14/2020 documented as of this encounter (statuses as of 11/03/2021) [address]17-2021 History of Past illness Narrative* Problem Noted Date Resolved Date Aspiration pneumonia 05/30/2020 09/22/2020 Post-operative state 05/24/2020 06/14/2020 Shortness of breath 05/03/2020 06/14/2020 Chest pain 05/03/2020 06/14/2020 documented as of this encounter (statuses as of 11/03/2021) [address]17-2021 History of Past illness Narrative* Problem Noted Date Resolved Date Aspiration pneumonia 05/30/2020 09/22/2020 Post-operative state 05/24/2020 06/14/2020 Shortness of breath 05/03/2020 06/14/2020 Chest pain 05/03/2020 06/14/2020 documented as of this encounter (statuses as of 11/10/2021) [address]17-2021 History of Past illness Narrative* Problem Noted Date Resolved Date Aspiration pneumonia 05/30/2020 09/22/2020 Post-operative state 05/24/2020 06/14/2020 Shortness of breath 05/03/2020 06/14/2020 Chest pain 05/03/2020 06/14/2020 documented as of this encounter (statuses as of 11/29/2021) [address]17-2021 History of Past illness Narrative* Problem Noted Date Resolved Date Aspiration pneumonia 05/30/2020 09/22/2020 Post-operative state 05/24/2020 06/14/2020 Shortness of breath 05/03/2020 06/14/2020 Chest pain 05/03/2020 06/14/2020 documented as of this encounter (statuses as of 12/06/2021) [address]17-2021 History of Past illness Narrative* Problem Noted Date Resolved Date Aspiration pneumonia 05/30/2020 09/22/2020 Post-operative state 05/24/2020 06/14/2020 Shortness of breath 05/03/2020 06/14/2020 Chest pain 05/03/2020 06/14/2020 documented as of this encounter (statuses as of 12/08/2021) [address]17-2021 History of Past illness Narrative* Problem Noted Date Resolved Date Aspiration pneumonia 05/30/2020 09/22/2020 Post-operative state 05/24/2020 06/14/2020 Shortness of breath 05/03/2020 06/14/2020 Chest pain 05/03/2020 06/14/2020 documented as of this encounter (statuses as of 12/27/2021) [address]17-2021 History of Past illness Narrative* Problem Noted Date Resolved Date Aspiration pneumonia 05/30/2020 09/22/2020 Post-operative state 05/24/2020 06/14/2020 Shortness of breath 05/03/2020 06/14/2020 Chest pain 05/03/2020 06/14/2020 documented as of this encounter (statuses as of 12/27/2021) [address]17-2021 History of Past illness Narrative* Problem Noted Date Resolved Date Aspiration pneumonia 05/30/2020 09/22/2020 Post-operative state 05/24/2020 06/14/2020 Shortness of breath 05/03/2020 06/14/2020 Chest pain 05/03/2020 06/14/2020 documented as of this encounter (statuses as of 01/19/2022) [address]17-2021 History of Past illness Narrative* Problem Noted Date Resolved Date Aspiration pneumonia 05/30/2020 09/22/2020 Post-operative state 05/24/2020 06/14/2020 Shortness of breath 05/03/2020 06/14/2020 Chest pain 05/03/2020 06/14/2020 documented as of this encounter (statuses as of 01/19/2022) [address]17-2021 History of Past illness Narrative* Problem Noted Date Resolved Date Aspiration pneumonia 05/30/2020 09/22/2020 Post-operative state 05/24/2020 06/14/2020 Shortness of breath 05/03/2020 06/14/2020 Chest pain 05/03/2020 06/14/2020 documented as of this encounter (statuses as of 01/20/2022) [address]17-2021 History of Past illness Narrative* Problem Noted Date Resolved Date Aspiration pneumonia 05/30/2020 09/22/2020 Post-operative state 05/24/2020 06/14/2020 Shortness of breath 05/03/2020 06/14/2020 Chest pain 05/03/2020 06/14/2020 documented as of this encounter (statuses as of 02/13/2022) [address]17-2021 History of Past illness Narrative* Problem Noted Date Resolved Date Aspiration pneumonia 05/30/2020 09/22/2020 Post-operative state 05/24/2020 06/14/2020 Shortness of breath 05/03/2020 06/14/2020 Chest pain 05/03/2020 06/14/2020 documented as of this encounter (statuses as of 03/10/2022) [address]17-2021 History of Past illness Narrative* Problem Noted Date Resolved Date Aspiration pneumonia 05/30/2020 09/22/2020 Post-operative state 05/24/2020 06/14/2020 Shortness of breath 05/03/2020 06/14/2020 Chest pain 05/03/2020 06/14/2020 documented as of this encounter (statuses as of 03/13/2022) [address]17-2021 History of Past illness Narrative* Problem Noted Date Resolved Date Aspiration pneumonia 05/30/2020 09/22/2020 Post-operative state 05/24/2020 06/14/2020 Shortness of breath 05/03/2020 06/14/2020 Chest pain 05/03/2020 06/14/2020 documented as of this encounter (statuses as of 03/31/2022) [address]17-2021 History of Past illness Narrative* Problem Noted Date Resolved Date Aspiration pneumonia 05/30/2020 09/22/2020 Post-operative state 05/24/2020 06/14/2020 Shortness of breath 05/03/2020 06/14/2020 Chest pain 05/03/2020 06/14/2020 documented as of this encounter (statuses as of 04/05/2022) [facility]01-17-2021 History of Past illness Narrative* Problem Noted Date Resolved Date Aspiration pneumonia 05/30/2020 09/22/2020 Post-operative state 05/24/2020 06/14/2020 Shortness of breath 05/03/2020 06/14/2020 Chest pain 05/03/2020 06/14/2020 documented as of this encounter (statuses as of 05/03/2022) [facility]01-17-2021 History of Past illness Narrative* Problem Noted Date Resolved Date Aspiration pneumonia 05/30/2020 09/22/2020 Post-operative state 05/24/2020 06/14/2020 Shortness of breath 05/03/2020 06/14/2020 Chest pain 05/03/2020 06/14/2020 documented as of this encounter (statuses as of 05/18/2022) [address]17-2021 History of Past illness Narrative* Problem Noted Date Resolved Date Aspiration pneumonia 05/30/2020 09/22/2020 Post-operative state 05/24/2020 06/14/2020 Shortness of breath 05/03/2020 06/14/2020 Chest pain 05/03/2020 06/14/2020 documented as of this encounter (statuses as of 07/12/2022) [facility]01-17-2021 History of Past illness Narrative* Problem Noted Date Resolved Date Aspiration pneumonia 05/30/2020 09/22/2020 Post-operative state 05/24/2020 06/14/2020 Shortness of breath 05/03/2020 06/14/2020 Chest pain 05/03/2020 06/14/2020 documented as of this encounter (statuses as of 07/18/2022) [facility]01-17-2021 History of Past illness Narrative* Problem Noted Date Resolved Date Aspiration pneumonia 05/30/2020 09/22/2020 Post-operative state 05/24/2020 06/14/2020 Shortness of breath 05/03/2020 06/14/2020 Chest pain 05/03/2020 06/14/2020 documented as of this encounter (statuses as of 07/25/2022) [address]17-2021 History of Past illness Narrative* Problem Noted Date Resolved Date Aspiration pneumonia 05/30/2020 09/22/2020 Post-operative state 05/24/2020 06/14/2020 Shortness of breath 05/03/2020 06/14/2020 Chest pain 05/03/2020 06/14/2020 documented as of this encounter (statuses as of 07/27/2022) [address]17-2021 History of Past illness Narrative* Problem Noted Date Resolved Date Aspiration pneumonia 05/30/2020 09/22/2020 Post-operative state 05/24/2020 06/14/2020 Shortness of breath 05/03/2020 06/14/2020 Chest pain 05/03/2020 06/14/2020 documented as of this encounter (statuses as of 08/03/2022) [place] [id number] History of Past illness Narrative* Problem Noted Date Resolved Date Aspiration pneumonia 05/30/2020 09/22/2020 Post-operative state 05/24/2020 06/14/2020 Shortness of breath 05/03/2020 06/14/2020 Chest pain 05/03/2020 06/14/2020 documented as of this encounter (statuses as of 08/10/2022) [address]17-2021 History of Past illness Narrative* Problem Noted Date Resolved Date Aspiration pneumonia 05/30/2020 09/22/2020 Post-operative state 05/24/2020 06/14/2020 Shortness of breath 05/03/2020 06/14/2020 Chest pain 05/03/2020 06/14/2020 documented as of this encounter (statuses as of 08/10/2022) [address]17-2021 History of Past illness Narrative* Problem Noted Date Resolved Date Aspiration pneumonia 05/30/2020 09/22/2020 Post-operative state 05/24/2020 06/14/2020 Shortness of breath 05/03/2020 06/14/2020 Chest pain 05/03/2020 06/14/2020 documented as of this encounter (statuses as of 08/14/2022) [facility]01-17-2021 History of Past illness Narrative* Problem Noted Date Resolved Date Aspiration pneumonia 05/30/2020 09/22/2020 Post-operative state 05/24/2020 06/14/2020 Shortness of breath 05/03/2020 06/14/2020 Chest pain 05/03/2020 06/14/2020 documented as of this encounter (statuses as of 08/25/2022) [address]17-2021 History of Past illness Narrative* Problem Noted Date Resolved Date Aspiration pneumonia 05/30/2020 09/22/2020 Post-operative state 05/24/2020 06/14/2020 Shortness of breath 05/03/2020 06/14/2020 Chest pain 05/03/2020 06/14/2020 documented as of this encounter (statuses as of 09/11/2022) [facility]01-17-2021 History of Past illness Narrative* Problem Noted Date Resolved Date Aspiration pneumonia 05/30/2020 09/22/2020 Post-operative state 05/24/2020 06/14/2020 Shortness of breath 05/03/2020 06/14/2020 Chest pain 05/03/2020 06/14/2020 documented as of this encounter (statuses as of 09/22/2022) [address]17-2021 History of Past illness Narrative* Problem Noted Date Resolved Date Aspiration pneumonia 05/30/2020 09/22/2020 Post-operative state 05/24/2020 06/14/2020 Shortness of breath 05/03/2020 06/14/2020 Chest pain 05/03/2020 06/14/2020 documented as of this encounter (statuses as of 10/12/2022) [facility]01-17-2021 History of Past illness Narrative* Problem Noted Date Resolved Date Aspiration pneumonia 05/30/2020 09/22/2020 Post-operative state 05/24/2020 06/14/2020 Shortness of breath 05/03/2020 06/14/2020 Chest pain 05/03/2020 06/14/2020 documented as of this encounter (statuses as of 10/14/2022) [facility]01-17-2021 History of Past illness Narrative* Problem Noted Date Resolved Date Aspiration pneumonia 05/30/2020 09/22/2020 Post-operative state 05/24/2020 06/14/2020 Shortness of breath 05/03/2020 06/14/2020 Chest pain 05/03/2020 06/14/2020 documented as of this encounter (statuses as of 10/15/2022) [facility]01-17-2021 History of Past illness Narrative* Problem Noted Date Resolved Date Aspiration pneumonia 05/30/2020 09/22/2020 Post-operative state 05/24/2020 06/14/2020 Shortness of breath 05/03/2020 06/14/2020 Chest pain 05/03/2020 06/14/2020 documented as of this encounter (statuses as of 10/30/2022) [facility]01-17-2021 History of Past illness Narrative* Problem Noted Date Diagnosed Date Resolved Date Aspiration pneumonia 05/30/2020 021 Post-operative state 05/24/2020 021 Shortness of breath 05/03/2020 06/14/19 21 Chest pain 05/03/2020 06/14/2020 documented as of this encounter (statuses as of 12/19/2022) [facility]01-17-2021 History of Past illness Narrative* Problem Noted Date Diagnosed Date Resolved Date Aspiration pneumonia 05/30/2020 021 Post-operative state 05/24/2020 021 Shortness of breath 05/03/2020 06/14/19 21 Chest pain 05/03/2020 06/14/2020 documented as of this encounter (statuses as of 01/10/2023) [address]17-2021 History of Past illness Narrative* Problem Noted Date Diagnosed Date Resolved Date Aspiration pneumonia 05/30/2020 021 Post-operative state 05/24/2020 021 Shortness of breath 05/03/2020 06/14/19 21 Chest pain 05/03/2020 06/14/2020 documented as of this encounter (statuses as of 01/10/2023) [facility]01-17-2021 History of Past illness Narrative* Problem Noted Date Diagnosed Date Resolved Date Aspiration pneumonia 05/30/2020 021 Post-operative state 05/24/2020 021 Shortness of breath 05/03/2020 06/14/19 21 Chest pain 05/03/2020 06/14/2020 documented as of this encounter (statuses as of 01/12/2023) [facility]01-17-2021 History of Past illness Narrative* Problem Noted Date Diagnosed Date Resolved Date Aspiration pneumonia 05/30/2020 021 Post-operative state 05/24/2020 021 Shortness of breath 05/03/2020 06/14/19 21 Chest pain 05/03/2020 06/14/2020 documented as of this encounter (statuses as of 02/21/2023) [facility]01-17-2021 History of Past illness Narrative* Problem Noted Date Diagnosed Date Resolved Date Aspiration pneumonia 05/30/2020 021 Post-operative state 05/24/2020 021 Shortness of breath 05/03/2020 06/14/19 21 Chest pain 05/03/2020 06/14/2020 documented as of this encounter (statuses as of 03/18/2023) [facility]01-17-2021 History of Past illness Narrative* Problem Noted Date Diagnosed Date Resolved Date Aspiration pneumonia 05/30/2020 021 Post-operative state 05/24/2020 021 Shortness of breath 05/03/2020 06/14/19 21 Chest pain 05/03/2020 06/14/2020 documented as of this encounter (statuses as of 03/18/2023) [facility]-17-2021 History of Past illness Narrative* Problem Noted Date Diagnosed Date Resolved Date Aspiration pneumonia 05/30/2020 021 Post-operative state 05/24/2020 021 Shortness of breath 05/03/2020 06/14/19 21 Chest pain 05/03/2020 06/14/2020 documented as of this encounter (statuses as of 03/18/2023) [facility]01-17-2021 History of Past illness Narrative* Problem Noted Date Diagnosed Date Resolved Date Aspiration pneumonia 05/30/2020 021 Post-operative state 05/24/2020 021 Shortness of breath 05/03/2020 06/14/19 21 Chest pain 05/03/2020 06/14/2020 documented as of this encounter (statuses as of 03/18/2023) [facility]01-17-2021 History of Past illness Narrative* Problem Noted Date Diagnosed Date Resolved Date Aspiration pneumonia 05/30/2020 021 Post-operative state 05/24/2020 021 Shortness of breath 05/03/2020 06/14/19 21 Chest pain 05/03/2020 06/14/2020 documented as of this encounter (statuses as of 03/20/2023) [facility]-17-2021 History of Past illness Narrative* Problem Noted Date Diagnosed Date Resolved Date Aspiration pneumonia 05/30/2020 021 Post-operative state 05/24/2020 021 Shortness of breath 05/03/2020 06/14/19 21 Chest pain 05/03/2020 06/14/2020 documented as of this encounter (statuses as of 04/10/2023) [facility]-17-2021 History of Past illness Narrative* Problem Noted Date Diagnosed Date Resolved Date Aspiration pneumonia 05/30/2020 021 Post-operative state 05/24/2020 021 Shortness of breath 05/03/2020 06/14/19 21 Chest pain 05/03/2020 06/14/2020 documented as of this encounter (statuses as of 04/25/2023) [facility]-17-2021 History of Past illness Narrative* Problem Noted Date Diagnosed Date Resolved Date Aspiration pneumonia 05/30/2020 021 Post-operative state 05/24/2020 021 Shortness of breath 05/03/2020 06/14/19 21 Chest pain 05/03/2020 06/14/2020 documented as of this encounter (statuses as of 04/27/2023) [facility]01-17-2021 History of Past illness Narrative* Problem Noted Date Diagnosed Date Resolved Date Aspiration pneumonia 05/30/2020 021 Post-operative state 05/24/2020 021 Shortness of breath 05/03/2020 06/14/19 21 Chest pain 05/03/2020 06/14/2020 documented as of this encounter (statuses as of 07/13/2023) [facility]01-17-2021 History of Past illness Narrative* Problem Noted Date Diagnosed Date Resolved Date Aspiration pneumonia 05/30/2020 021 Post-operative state 05/24/2020 021 Shortness of breath 05/03/2020 06/14/19 21 Chest pain 05/03/2020 06/14/2020 documented as of this encounter (statuses as of 07/20/2023) [facility]01-17-2021 History of Past illness Narrative* Problem Noted Date Diagnosed Date Resolved Date Aspiration pneumonia 05/30/2020 021 Post-operative state 05/24/2020 021 Shortness of breath 05/03/2020 06/14/19 21 Chest pain 05/03/2020 06/14/2020 documented as of this encounter (statuses as of 07/25/2023) [facility]-17-2021 History of Past illness Narrative* Problem Noted Date Diagnosed Date Resolved Date Aspiration pneumonia 05/30/2020 021 Post-operative state 05/24/2020 021 Shortness of breath 05/03/2020 06/14/19 21 Chest pain 05/03/2020 06/14/2020 documented as of this encounter (statuses as of 07/25/2023) [address]17-2021 History of Past illness Narrative* Problem Noted Date Diagnosed Date Resolved Date Aspiration pneumonia 05/30/2020 021 Post-operative state 05/24/2020 021 Shortness of breath 05/03/2020 06/14/19 21 Chest pain 05/03/2020 06/14/2020 documented as of this encounter (statuses as of 07/26/2023) [address]17-2021 History of Past illness Narrative* Problem Noted Date Diagnosed Date Resolved Date Aspiration pneumonia 05/30/2020 021 Post-operative state 05/24/2020 021 Shortness of breath 05/03/2020 06/14/19 21 Chest pain 05/03/2020 06/14/2020 documented as of this encounter (statuses as of 07/28/2023) [facility]17-2021 History of Past illness Narrative* Problem Noted Date Diagnosed Date Resolved Date Aspiration pneumonia 05/30/2020 021 Post-operative state 05/24/2020 021 Shortness of breath 05/03/2020 06/14/19 21 Chest pain 05/03/2020 06/14/2020 documented as of this encounter (statuses as of 08/06/2023) [facility]-17-2021 History of Past illness Narrative* Problem Noted Date Diagnosed Date Resolved Date Aspiration pneumonia 05/30/2020 021 Post-operative state 05/24/2020 021 Shortness of breath 05/03/2020 06/14/19 21 Chest pain 05/03/2020 06/14/2020 documented as of this encounter (statuses as of 08/07/2023) [facility]17-2021 History of Past illness Narrative* Problem Noted Date Diagnosed Date Resolved Date Aspiration pneumonia 05/30/2020 021 Post-operative state 05/24/2020 021 Shortness of breath 05/03/2020 06/14/19 21 Chest pain 05/03/2020 06/14/2020 documented as of this encounter (statuses as of 08/08/2023) [address]17-2021 History of Past illness Narrative* Problem Noted Date Diagnosed Date Resolved Date Aspiration pneumonia 05/30/2020 021 Post-operative state 05/24/2020 021 Shortness of breath 05/03/2020 06/14/19 21 Chest pain 05/03/2020 06/14/2020 documented as of this encounter (statuses as of 08/23/2023) [facility]01-17-2021 History of Past illness Narrative* Problem Noted Date Diagnosed Date Resolved Date Aspiration pneumonia 05/30/2020 021 Post-operative state 05/24/2020 021 Shortness of breath 05/03/2020 06/14/19 21 Chest pain 05/03/2020 06/14/2020 documented as of this encounter (statuses as of 08/24/2023) [facility]01-17-2021 History of Past illness Narrative* Problem Noted Date Diagnosed Date Resolved Date Aspiration pneumonia 05/30/2020 021 Post-operative state 05/24/2020 021 Shortness of breath 05/03/2020 06/14/19 21 Chest pain 05/03/2020 06/14/2020 documented as of this encounter (statuses as of 08/28/2023) [facility]12[facility]2020 History of Present illness Narrative* [facility] [...] STATUS: Discontinued PROCEDURE TYPE: NM Stress: 13.0mCi [id number] was administered IV for Rest Imaging at 1307 by [facility]. 35.8 mCi [id number] was administered IV for Stress Imaging at [...] 1:10 PM PAGER/CONTACT #: [facility] Diagnosis Left shoulder pain, unspecified chronicity Lateral epicondylitis of left elbow Lateral epicondylitis of elbow [facility] Diagnosis Encounter for screening mammogram for breast cancer [facility] Diagnosis Chronic left shoulder pain- Primary [...] blood chemistry, unspecified documented in this encounter [facility] note* Diagnosis Hypothyroidism, unspecified type- Primary documented in this encounter [facility] note* Diagnosis Rib pain- Primary Chest pain, unspecified Somatic dysfunction of head region Somatic dysfunction of spine, cervical Nonallopathic lesion of cervical region, not elsewhere classified Somatic dysfunction of rib Somatic dysfunction of spine, thoracic Nonallopathic lesion of thoracic region, not elsewhere classified Neck pain Cervicalgia documented in this encounter [facility] note* Diagnosis Diverticulitis- Primary Diverticulitis of colon (without mention of hemorrhage) RLQ abdominal pain Abdominal pain, right lower quadrant Lower abdominal pain Abdominal pain, other specified site documented in this encounter [facility] note* Diagnosis Diverticulitis Diverticulitis of colon (without mention of hemorrhage) RLQ abdominal pain Abdominal pain, right lower quadrant Lower abdominal pain Abdominal pain, other specified site Stable angina (HCC) Other and unspecified angina pectoris Cardiomyopathy, unspecified type (HCC) Dyspnea on exertion Other dyspnea and respiratory abnormality documented in this encounter [facility] note* Diagnosis Generalized abdominal pain- Primary [...] and respiratory abnormality documented in this encounter [facility] note* Diagnosis Chronic systolic CHF (congestive heart failure) (HCC)- Primary Chronic systolic heart failure documented in this encounter [facility] note* Diagnosis Abdominal bloating Flatulence, eructation, and gas pain Belching Flatulence, eructation, and gas pain Abdominal pain, unspecified abdominal location documented in this encounter [facility] note* Diagnosis Diverticulosis- Primary Diverticulosis of colon (without mention of hemorrhage) History of Clostridium difficile colitis Personal history of other diseases of digestive system Abdominal bloating Flatulence, eructation, and gas pain documented in this encounter [facility] note* Diagnosis Hypothyroidism, unspecified type documented in this encounter [facility] note* Diagnosis Abdominal bloating- Primary Flatulence, eructation, and gas pain Belching Flatulence, eructation, and gas pain Abdominal pain, unspecified abdominal location [facility] Routine physical examination- Primary Routine general medical examination at a health care facility Primary hypertension Unspecified essential hypertension Mixed hyperlipidemia Coronary artery disease involving benton coronary artery of benton heart with other form of angina pectoris (HCC) Vitamin D deficiency Unspecified vitamin D deficiency Hypothyroidism, unspecified type [facility] Diagnosis Cardiomegaly- Primary Primary hypertension Unspecified essential hypertension Chronic diastolic congestive heart failure (HCC) Chronic diastolic heart failure Palpitations Acute on chronic systolic CHF (congestive heart failure) (HCC) Acute on chronic systolic heart failure [facility] Diagnosis Rib pain on right side- Primary Chest pain, unspecified Somatic dysfunction of spine, cervical Nonallopathic lesion of cervical region, not elsewhere classified Somatic dysfunction of rib Somatic dysfunction of spine, thoracic Nonallopathic lesion of thoracic region, not elsewhere classified [facility] Diagnosis Chronic right-sided thoracic back pain- Primary Somatic dysfunction of spine, cervical Nonallopathic lesion of cervical region, not elsewhere classified Somatic dysfunction of spine, thoracic Nonallopathic lesion of thoracic region, not elsewhere classified Somatic dysfunction of rib Rib pain on right side Chest pain, unspecified [facility] Diagnosis Hypothyroidism, unspecified type- Primary [...] screening for osteoporosis [facility] Diagnosis Hypothyroidism, unspecified type [facility] Diagnosis Chronic bilateral thoracic back [...] Palpitations Mixed hyperlipidemia [facility] Diagnosis Dysuria- Primary Urticaria Urticaria, [...] Palpitations Mixed hyperlipidemia [facility] Diagnosis Primary hypertension- Primary Unspecified essential hypertension Palpitations Mixed hyperlipidemia [facility] Diagnosis Chronic neck pain- Primary Cervicalgia Abdominal distension (gaseous) Flatulence, eructation, and gas pain Nausea Nausea alone RUQ abdominal pain Abdominal pain, right upper quadrant Somatic dysfunction of spine, cervical Nonallopathic lesion of cervical region, not elsewhere classified Somatic dysfunction of rib Somatic dysfunction of head region [facility] Diagnosis Chronic bilateral thoracic back pain- Primary Somatic dysfunction of spine, cervical Nonallopathic lesion of cervical region, not elsewhere classified Somatic dysfunction of rib Somatic dysfunction of head region Chronic neck pain Cervicalgia Somatic dysfunction of spine, thoracic Nonallopathic lesion of thoracic region, not elsewhere classified [facility] Diagnosis Acute cough- Primary Sore throat Acute pharyngitis [facility] Diagnosis Primary hypertension Unspecified essential hypertension [facility] Diagnosis Hypothyroidism, unspecified type- Primary Somatic dysfunction of spine, cervical Nonallopathic lesion of cervical region, not elsewhere classified Somatic dysfunction of rib Somatic dysfunction of head region Chronic bilateral thoracic back pain Chronic neck pain Cervicalgia Neck fullness Swelling, mass, or lump in head and neck documented [facility] this [facility] Diagnosis Hypothyroidism, unspecified type [facility] Diagnosis Screening for osteoporosis Special screening for osteoporosis Asymptomatic menopause [facility] Diagnosis SOB (shortness of breath) Shortness of breath [facility] [facility] Diagnosis Abnormal electrocardiogram Nonspecific abnormal electrocardiogram (ECG) (EKG) LBBB (left bundle branch block) Other left bundle branch block [facility] Diagnosis Abdominal distension (gaseous) Flatulence, eructation, and gas pain Nausea Nausea alone RUQ abdominal pain Abdominal pain, right upper quadrant [facility] Diagnosis Primary hypertension Unspecified essential hypertension Chronic diastolic congestive heart failure (HCC) Chronic diastolic heart failure [facility] Diagnosis Chronic diastolic congestive heart failure [...] Primary hypercoagulable state [facility] Diagnosis LBBB (left bundle branch block)- Primary Other left bundle branch block Presence of cardiac resynchronization therapy defibrillator (DISTRICT FIRE MANAGEMENT OFFICER-D) Acute on chronic systolic CHF (congestive heart failure) (HCC) Acute on chronic systolic heart failure [facility] Diagnosis Vagina, candidiasis- Primary Candidiasis of vulva and vagina Burning with urination Dysuria 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 Acute cough Laryngopharyngeal reflux (LPR) Other diseases of larynx documented [facility] Diagnosis Chronic systolic congestive heart failure (HCC)- Primary Chronic systolic heart failure Nonischemic cardiomyopathy (HCC) Other primary cardiomyopathies Mixed hyperlipidemia LBBB (left bundle branch block) Other left bundle branch block Presence of cardiac resynchronization therapy defibrillator (DISTRICT FIRE MANAGEMENT OFFICER-D) Primary hypertension Unspecified essential hypertension 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 Valvular heart disease Endocarditis, valve unspecified, unspecified cause [facility] noteNo assessment information availableWMain [facility] Work Phone: Evaluation note* Diagnosis Foot pain, left- Primary Pain in limb Localized swelling of left foot Foot pain, left Pain in limb Localized swelling of left foot [facility] Diagnosis Repetitive stress injury- Primary Unspecified site of sprain and strain Venous insufficiency Unspecified venous (peripheral) insufficiency [facility] Diagnosis Repetitive stress injury Unspecified site of sprain and strain [facility] Diagnosis Acute on chronic systolic CHF [...] of left foot [facility] Hypothyroidism, acquired- Primary Unspecified [...] Diagnosis Presence of cardiac resynchronization therapy defibrillator (DISTRICT FIRE MANAGEMENT OFFICER-D)- Primary Non-ischemic cardiomyopathy (HCC) Other primary cardiomyopathies [...] not elsewhere classified [facility] Diagnosis Pre-op evaluation- Primary [...] not elsewhere classified [facility] Diagnosis Pre-op evaluation- Primary Preoperative examination, [...] of left foot [facility] Diagnosis Pre-op evaluation- Primary Preoperative examination, [...] Chronic cough Cough documented in this encounter [facility] note* Diagnosis Pre-op evaluation- Primary Preoperative [...] of head region [facility] Diagnosis Pre-op evaluation- Primary Preoperative examination, [...] Other primary cardiomyopathies documented in this encounter [facility] note* Diagnosis Pre-op evaluation- Primary Preoperative [...] joint, upper arm documented in this encounter [facility] note* Diagnosis Pre-op evaluation- Primary Preoperative [...] of head region [facility] Diagnosis Pre-op evaluation- Primary Preoperative examination, [...] 30-34.9 Obesity, unspecified [facility] Diagnosis Great toe pain, left Pre-op [...] 30-34.9 Obesity, unspecified [facility] Diagnosis Pre-op evaluation- Primary Preoperative examination, [...] bundle branch block 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 [facility] Diagnosis Pre-op evaluation- Primary Preoperative examination, [...] not elsewhere classified [facility] Diagnosis Pre-op evaluation- Primary Preoperative examination, [...] not elsewhere classified [facility] Diagnosis Pre-op evaluation- Primary Preoperative examination, [...] of head region documented [facility] Diagnosis Pre-op evaluation- Primary Preoperative examination, [...] not elsewhere classified [facility] Diagnosis Pre-op evaluation- Primary Preoperative examination, [...] Other primary cardiomyopathies [facility] Diagnosis Pre-op evaluation- Primary Preoperative examination, [...] unspecified Acute cough [facility] Diagnosis Pre-op evaluation- Primary Preoperative examination, [...] vitamin D deficiency [facility] Diagnosis Pre-op evaluation- Primary Preoperative examination, [...] not elsewhere classified [facility] Diagnosis Pre-op evaluation- Primary Preoperative examination, [...] of cardiac pacemaker documented in this encounter [facility] note* Diagnosis Pre-op evaluation- Primary Preoperative [...] of cardiac pacemaker [facility] Diagnosis Pre-op evaluation- Primary Preoperative examination, [...] 30-34.9 Obesity, unspecified Cardiac resynchronization therapy defibrillator (DISTRICT FIRE MANAGEMENT OFFICER-D) in place- Primary documented in this encounter [facility] note* Diagnosis Pre-op evaluation- Primary Preoperative [...] 30-34.9 Obesity, unspecified Cardiac resynchronization therapy defibrillator (DISTRICT FIRE MANAGEMENT OFFICER-D) in place- Primary Chronic HFrEF (heart failure with reduced ejection fraction) (HCC) Medication management Encounter for long-term (current) use of other medications documented in this encounter [facility] note* Diagnosis Pre-op evaluation- Primary Preoperative [...] Other primary cardiomyopathies 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 Left bundle branch block Other left bundle branch block Cardiac resynchronization therapy defibrillator (DISTRICT FIRE MANAGEMENT OFFICER-D) in place documented in this encounter [facility] Discharge instructionsAdditional Instructions Use incentive [...] of any fluid is an option for this.[facility] Work Phone: Reason for referral (narrative)* Diagnostic Procedure Only (Routine) - Closed Specialty Diagnoses / Procedures Referred By Crissy kelley Referred To Contact [facility] Diagnoses Encounter for screening mammogram for breast cancer Procedures KARTHIK SCREENING SCREENING MAMMOGRAPHY BI 2-VIEW BREAST INC CAD Maycol Valladares MD [address] [place] [address] [facility] [address] [place] [address] Referral ID Status Reason Start Date Expiration Date V isits Requested Visits Authorized [id number] Closed Auto-Generate d Referral 07/01/2021 07/31/2022 1 1 [facility] for referral (narrative)* Diagnostic Procedure Only (Routine) - Closed Specialty Diagnoses / Procedures Referred By Crissy kelley Referred To Contact [facility] Diagnoses Chronic left shoulder pain Left elbow pain Procedures XR SHOULDER LIMITED 2V AP/TRUE AP LEFT RADEX SHOULDER COMPLETE MINIMUM 2 VIEWS Alejandrina Harvey APRN.MEDICAL SCIENTIST [address] [place] [address] [facility] Referral ID Status Reason Start Date Expiration Date V isits Requested Visits Authorized [id number] Closed Auto-Generate d Referral 09/01/2021 10/01/2022 1 1 * Diagnostic Procedure Only (Routine) - Closed Specialty Diagnoses / Procedures Referred By Contac t Referred To Contact [facility] Diagnoses Chronic left shoulder pain Left elbow pain Procedures XR ELBOW GENERAL 2V AP/LAT LEFT RADEX ELBOW 2 VIEWS Alejandrina Harvey APRN.CNP [address] [place] [address] [facility] Referral ID Status Reason Start Date Expiration Date V isits Requested Visits Authorized [id number] Closed Auto-Generate d Referral 09/01/2021 10/01/2022 1 1 [facility] for referral (narrative)* Outpatient Procedure (Routine) - Closed Specialty Diagnoses / Procedures Referred By Contac t Referred To [facility] Diagnoses Abdominal bloating Belching Abdominal pain, unspecified abdominal location Procedures EGD DIAGNOSTIC ESOPHAGOGASTRODUODENOSC OPY TRANSORAL DIAGNOSTIC Sincere Perkins PA-C [address] [place] [address] [facility] [address] [place] [address] Referral ID Status Reason Start Date Expiration Date V isits Requested Visits Authorized [id number] Closed Auto-Generate d Referral 11/02/2021 11/02/2022 1 1 * Outpatient Procedure (Routine) - Closed Specialty Diagnoses / Procedures Referred By Contac t Referred To Contact [facility] Diagnoses Abdominal bloating Belching Abdominal pain, unspecified abdominal location Procedures COLONOSCOPY DIAGNOSTIC COLONOSCOPY FLX DX W/COLLJ SPEC WHEN PFRMD Sincere Perkins PA-C [address] [place] [address] [facility] [address] [place] [address] Referral ID Status Reason Start Date Expiration Date V isits Requested Visits Authorized [id number] Closed Auto-Generate d Referral 11/02/2021 11/02/2022 1 1 [facility] for referral (narrative)* Outpatient Procedure (Routine) - Closed Specialty Diagnoses / Procedures Referred By Contac t Referred To Contact [facility] Diagnoses Abdominal bloating Belching Abdominal pain, unspecified abdominal location Procedures EGD DIAGNOSTIC ESOPHAGOGASTRODUODENOSC OPY TRANSORAL DIAGNOSTIC Sincere Perkins PA-C [address] [place] [address] [address] Referral ID Status Reason Start Date Expiration Date V isits Requested Visits Authorized [id number] Closed Auto-Generate d Referral 11/02/2021 11/02/2022 1 1 * Outpatient Procedure (Routine) - Closed Specialty Diagnoses / Procedures Referred By Contac t Referred To Contact [facility] Diagnoses Abdominal bloating Belching Abdominal pain, unspecified abdominal location Procedures COLONOSCOPY DIAGNOSTIC COLONOSCOPY FLX DX W/COLLJ SPEC WHEN PFRMD Sincere Perkins PA-C [address] [place] [address] [address] Referral ID Status Reason Start Date Expiration Date V isits Requested Visits Authorized [id number] Closed Auto-Generate d Referral 11/02/2021 11/02/2022 1 1 [facility] for referral (narrative)* Outpatient Procedure (Routine) - Authorized Specialty Diagnoses / Procedures Referred By Contac t Referred [facility] Diagnoses Cardiomegaly Procedures ECHO ECHO TTHRC R-T 2D W/WOM-MODE COMPL SPEC&COLR D Santo Oneill MD [address] [place] [address] [facility] [address] [place] [address] Referral ID Status Reason Start Date Expiration Date Visits Requested Visits Authorized [id number] Authorized Auto-Generat ed Referral 02/13/2023 1 1 [facility] for referral (narrative)* Outpatient Procedure (Routine) - Closed Specialty Diagnoses / Procedures Referred By Contac t Referred To Contact [facility] Diagnoses Primary hypertension Palpitations Mixed hyperlipidemia Procedures ECG COMPLETE ECG ROUTINE ECG W/LEAST 12 LDS W/I&R Santo Oneill MD [address] [place] [address] [facility] [address] [place] [address] Referral ID Status Reason Start Date Expiration Date V isits Requested Visits Authorized [id number] Closed Auto-Generate d Referral 08/03/2022 08/03/2023 1 1 [facility] for referral (narrative)* Outpatient Procedure (Routine) - Pending Review Specialty Diagnoses / Procedures Referred By Contac t Referred To Contact [facility] Diagnoses LBBB (left bundle branch block) Presence of cardiac resynchronization therapy defibrillator (DISTRICT FIRE MANAGEMENT OFFICER-D) Acute on chronic systolic CHF (congestive heart failure) (HCC) Procedures ECG COMPLETE ECG ROUTINE ECG W/LEAST 12 LDS W/I&[place] [address] [place] [address] [address] Referral ID Status Reason Start Date Expiration Date Visits Requested Visits Authorized [id number] Pending Review Auto-Generat ed Referral 08/07/2023 08/06/2024 1 1 [facility] for referral (narrative)* Diagnostic Procedure Only (Urgent) - Closed Specialty Diagnoses / Procedures Referred By Contac t Referred To Contact [facility] IMAG[facility] Diagnoses Foot pain, left Localized swelling of left foot Procedures XR FOOT GENERAL 3V AP/LAT/OBL LEFT RADEX FOOT COMPLETE MINIMUM 3 VIEWS Alejandrina Harvey APRN.CNP [address] [place] [address] [place] [address] Referral ID Status Reason Start Date Expiration Date V isits Requested Visits Authorized [id number] Closed Auto-Generate d Referral 09/13/2023 10/12/2024 1 1 [facility] for referral (narrative)* Diagnostic Procedure Only (Routine) - Closed Specialty Diagnoses / Procedures Referred By Contac t Referred To Contact [facility] Diagnoses Repetitive stress injury Procedures XR FOOT GENERAL 3V AP/LAT/OBL LEFT RADEX FOOT COMPLETE MINIMUM 3 VIEWS Oliverio Mata [address] [place] [address] [place] [address] Referral ID Status Reason Start Date Expiration Date V isits Requested Visits Authorized [id number] Closed Auto-Generate d Referral 09/24/2023 10/23/2024 1 1 [facility] for referral (narrative)* Outpatient Procedure (Routine) - Pending Review Specialty Diagnoses / Procedures Referred By Contac t Referred [facility] Diagnoses Presence of cardiac resynchronization therapy defibrillator (DISTRICT FIRE MANAGEMENT OFFICER-D) Non-ischemic cardiomyopathy (HCC) LBBB (left bundle branch block) Procedures ECG COMPLETE ECG ROUTINE ECG W/LEAST 12 LDS W/I&R Mercedes Vera APRN.MEDICAL SCIENTIST [address] [place] [address] [facility] [address] [facility] [place] [id number] Referral ID Status Reason Start Date Expiration Date Visits Requested Visits Authorized [id number] Pending Review Auto-Generat ed Referral 11/01/2023 10/31/2024 1 1 [facility] for referral (narrative)* Diagnostic Procedure Only (Routine) - Pending Review Specialty Diagnoses / Procedures Referred By Contac t Referred To Contact [facility] IMAG[facility] Diagnoses Acute midline low back pain without sciatica Procedures XR LUMBAR GENERAL 3V AP/LAT/L5-S1 RADEX SPINE LUMBOSACRAL 2/3 VIEWS Mandeep Houser DO [address] [place] [address] [place] [address] Referral ID Status Reason Start Date Expiration Date Visits Requested Visits Authorized [id number] Pending Review Auto-Generat ed Referral 11/07/2023 12/06/2024 1 1 * Physical Therapy (Routine) - Authorized Specialty Diagnoses / Procedures Referred By Contac t Referred To Contact [facility] Diagnoses Acute midline low back pain without sciatica Procedures CONSULT TO PHYSICAL THERAPY PHYSICAL THERAPY EVALUATION HIGH COMPLEX 45 MINS Mandeep Houser DO [address] [place] [address] [facility] [address] [address] Referral ID Status Reason Start Date Expiration Date Visits Requested Visits Authorized [id number] Authorized PCP Requested Referral Auto-Generate d Referral 11/07/2023 11/06/2024 99 99 [facility] for referral (narrative)* Outpatient Procedure (Routine) - Closed Specialty Diagnoses / Procedures Referred By Contac t Referred [facility] Diagnoses Chronic systolic congestive heart failure (HCC) Procedures ECHO ECHO TTHRC R-T 2D W/WOM-MODE COMPL SPEC&[place] [address] [place] [address] [facility] [address] [address] Referral ID Status Reason Start Date Expiration Date V isits Requested Visits Authorized [id number] Closed Auto-Generate d Referral 11/07/2023 08/06/2024 1 1 [facility] for referral (narrative)* Diagnostic Procedure Only (Urgent) - Closed Specialty Diagnoses / Procedures Referred By Contac t Referred To Contact [facility] IMAG[facility] Diagnoses Foot pain, left Localized swelling of left foot Procedures XR FOOT GENERAL 3V AP/LAT/OBL LEFT RADEX FOOT COMPLETE MINIMUM 3 VIEWS Alejandrina Harvey APRN.MEDICAL SCIENTIST [address] [place] [address] [place] [address] Referral ID Status Reason Start Date Expiration Date V isits Requested Visits Authorized [id number] Closed Auto-Generate d Referral 09/13/2023 10/12/2024 1 1 [facility] for referral (narrative)* Outpatient Procedure (Routine) - New Request Specialty Diagnoses / Procedures Referred By Contac t Referred To Contact [facility] Diagnoses Nonischemic cardiomyopathy (HCC) Procedures ECHO ECHO TTHRC R-T 2D W/WOM-MODE COMPL SPEC&COLR Angel Benites DO [address] [place] [address] [facility] [address] [address] Referral ID Status Reason Start Date Expiration Date Visits Requested Visits Authorized [id number] New Request Auto-Generat ed Referral 08/06/2024 02/06/2025 1 1 [facility] for referral (narrative)* Diagnostic Procedure Only (Routine) - Closed Specialty Diagnoses / Procedures Referred By Contac t Referred To Contact [facility] Diagnoses Chronic left shoulder pain Left elbow pain Procedures XR SHOULDER LIMITED 2V AP/TRUE AP LEFT RADEX SHOULDER COMPLETE MINIMUM 2 VIEWS Alejandrina Harvey APRN.MEDICAL SCIENTIST [address] [place] [address] [place] [address] Referral ID Status Reason Start Date Expiration Date V isits Requested Visits Authorized [id number] Closed Auto-Generate d Referral 09/01/2021 10/01/2022 1 1 * Diagnostic Procedure Only (Routine) - Closed Specialty Diagnoses / Procedures Referred By Contac t Referred To Contact [facility] Diagnoses Chronic left shoulder pain Left elbow pain Procedures XR ELBOW GENERAL 2V AP/LAT LEFT RADEX ELBOW 2 VIEWS Alejandrina Harvey APRN.MEDICAL SCIENTIST [address] [place] [address] [place] [address] Referral ID Status Reason Start Date Expiration Date V isits Requested Visits Authorized [id number] Closed Auto-Generate d Referral 09/01/2021 10/01/2022 1 1 [facility] for referral (narrative)* Diagnostic Procedure Only (Routine) - Closed Specialty Diagnoses / Procedures Referred By Contac t Referred To Contact [facility] IMAG[facility] Diagnoses Chronic pain of right ankle Procedures XR ANKLE GENERAL 3V AP/LAT/OBL RT X-RAY ANKLE MINIMUM 3 VIEWS Maycol Valladares MD [address] [place] [address] [place] [address] Referral ID Status Reason Start Date Expiration Date V isits Requested Visits Authorized [id number] Closed Auto-Generate d Referral 12/29/2020 01/28/2022 1 1 [facility] for referral (narrative)No reason for referral information availableWMain Campus Medical Center Work Phone: Reason for visit Narrative* Diagnostic Procedure Only (Routine) - Closed Specialty Diagnoses / Procedures Referred By Crissy t Referred To Contact [facility] Diagnoses Encounter for screening mammogram for breast cancer Procedures KARTHIK SCREENING SCREENING MAMMOGRAPHY BI 2-VIEW BREAST INC CAD Valladares, Tereso, MD [address] [place] [address] [facility] [address] [place] [phone] Referral ID Status Reason Start Date Expiration Date V isits Requested Visits Authorized [id number] Closed Auto-Generate d Referral 07/01/2021 07/31/2022 1 1 [facility] for visit Narrative* Outpatient Procedure (Routine) - Closed Specialty Diagnoses / Procedures Referred By Gageac t Referred To Contact [facility] Diagnoses Abdominal bloating Belching Abdominal pain, unspecified abdominal location Procedures EGD DIAGNOSTIC ESOPHAGOGASTRODUODENOSC OPY TRANSORAL DIAGNOSTIC Sincere Perkins PA-C [address] [place] [address] [facility] [address] [address] Referral ID Status Reason Start Date Expiration Date V isits Requested Visits Authorized [id number] Closed Auto-Generate d Referral 11/02/2021 11/02/2022 1 1 [facility] for visit Narrative* Diagnostic Procedure Only (Routine) - Closed Specialty Diagnoses / Procedures Referred By Crissy t Referred To Contact XR IMAGING Diagnoses Repetitive stress injury Procedures XR FOOT GENERAL 3V AP/LAT/OBL LEFT RADEX FOOT COMPLETE MINIMUM 3 VIEWS Oliverio Mata [address] [place] [address] [place] [address] Referral ID Status Reason Start Date Expiration Date V isits Requested Visits Authorized [id number] Closed Auto-Generate d Referral 09/24/2023 10/23/2024 1 1 [facility] for visit Narrative* Outpatient Procedure (Routine) - Closed Specialty Diagnoses / Procedures Referred By Contac t Referred To [facility] Diagnoses Chronic systolic congestive heart failure (HCC) Procedures ECHO ECHO TTHRC R-T 2D W/WOM-MODE COMPL SPEC&[place] [address] [place] [address] [facility] [address] [place] [address] Referral ID Status Reason Start Date Expiration Date V isits Requested Visits Authorized [id number] Closed Auto-Generate d Referral 11/07/2023 08/06/2024 1 1 [facility] for visit Narrative* Diagnostic Procedure Only (Urgent) - Closed Specialty Diagnoses / Procedures Referred By Contac t Referred To Contact XR IMAGING Diagnoses Foot pain, left Localized swelling of left foot Procedures XR FOOT GENERAL 3V AP/LAT/OBL LEFT RADEX FOOT COMPLETE MINIMUM 3 VIEWS Alejandrina Harvey, AQUATIC LIFE LABORER.MEDICAL SCIENTIST [address] [place] [address] [place] [address] Referral ID Status Reason Start Date Expiration Date V isits Requested Visits Authorized [id number] Closed Auto-Generate d Referral 09/13/2023 10/12/2024 1 1 [facility] for visit Narrative* Diagnostic Procedure Only (Routine) - Closed Specialty Diagnoses / Procedures Referred By Contac t Referred To Contact X[facility] IMAG[facility] Diagnoses Chronic left shoulder pain Left elbow pain Procedures XR SHOULDER LIMITED 2V AP/TRUE AP LEFT RADEX SHOULDER COMPLETE MINIMUM 2 VIEWS Alejandrina Harvey, AQUATIC LIFE LABORER.MEDICAL SCIENTIST [address] [place] [address] [place] [address] Referral ID Status Reason Start Date Expiration Date V isits Requested Visits Authorized [id number] Closed Auto-Generate d Referral 09/01/2021 10/01/2022 1 1 [facility] for visit Narrative* Diagnostic Procedure Only (Routine) - Closed Specialty Diagnoses / Procedures Referred By Contac t Referred To Contact XR IMAGING Diagnoses Chronic pain of right ankle Procedures XR ANKLE GENERAL 3V AP/LAT/OBL RT X-RAY ANKLE MINIMUM 3 VIEWS Maycol Valladares MD [address] [place] [address] [place] [address] Referral ID Status Reason Start Date Expiration Date V isits Requested Visits Authorized [id number] Closed Auto-Generate d Referral 12/29/2020 01/28/2022 1 1 [facility] Summary Purpose Family History Grandmother Name Dates [...] Documents on File Type Date 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 Advance Directive(s) 03/18/2021 2:56 PM Advance Directive(s) 09/28/2020 8:38 PM Advance Directive(s) 09/07/2020 9:42 AM Advance Directive(s) 09/03/2020 2:04 PM Advance Directive(s) 05/30/2020 10:25 AM Advance Directive(s) 05/24/2020 10:03 AM Advance Directive(s) 05/03/2020 9:25 AM Advance Directive(s) 03/09/2020 8:13 AM Advance Directive(s) 03/09/2020 12:44 PM Documents on File Type Date Recorded 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 Advance Directive(s) 03/18/2021 2:56 PM Advance Directive(s) 09/28/2020 8:38 PM Advance Directive(s) 09/07/2020 9:42 AM Advance Directive(s) 09/03/2020 2:04 PM Advance Directive(s) 05/30/2020 10:25 AM Advance Directive(s) 05/24/2020 10:03 AM Advance Directive(s) 05/03/2020 9:25 AM Advance Directive(s) 03/09/2020 8:13 AM Advance Directive(s) 03/09/2020 12:44 PM Documents on File Type Date Recorded 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 Advance Directive(s) 11/21/2021 10:55 AM Advance Directive(s) 03/18/2021 2:56 PM Advance Directive(s) 09/28/2020 8:38 PM Advance Directive(s) 09/07/2020 9:42 AM Advance Directive(s) 09/03/2020 2:04 PM Advance Directive(s) 05/30/2020 10:25 AM Advance Directive(s) 05/24/2020 10:03 AM Advance Directive(s) 05/03/2020 9:25 AM Advance Directive(s) 03/09/2020 8:13 AM Advance Directive(s) 03/09/2020 12:44 PM Documents on File Type Date Recorded 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 Yes November 13, 2024 5:58pm Reason for Referral Specialty Diagnoses / Procedures Referred By Contac t Referred To Contact CT IMAGING Diagnoses Diverticulitis RLQ abdominal pain Lower abdominal pain Procedures CT ABD/PEL W IVCON CT ABD & PELVIS W/CONTRAST Alejandrina Harvey APRN.MEDICAL SCIENTIST [address] [place] [address] Ct Imaging Referral ID Status Reason Start Date Expiration Date Visits Requested Visits Authorized [id number] Authorized Auto-Generat ed Referral 10/19/2021 11/18/2022 1 1 Referral ID Status Reason Start Date Expiration Date V isits Requested Visits Authorized [id number] Closed Auto-Generate d Referral 10/19/2021 11/18/2022 1 1 Specialty Diagnoses / Procedures Referred By Contac t Referred To Contact CT IMAGING Diagnoses Abdominal distension (gaseous) Nausea RUQ abdominal pain Procedures CT ABD/PEL W IVCON CT ABD & PELVIS W/CONTRAST Mandeep Houser, DO [address] [place] [address] Ct Imaging Referral ID Status Reason Start Date Expiration Date Visits Requested Visits Authorized [id number] Authorized Auto-Generat ed Referral 08/22/2022 09/21/2023 1 1 Specialty Diagnoses / Procedures Referred By Contac t Referred To Contact CT IMAGING Diagnoses Abdominal distension (gaseous) Nausea RUQ abdominal pain Procedures CT ABD/PEL W IVCON CT ABD & PELVIS W/CONTRAST Mandeep Houser L, DO [address] [place] [address] Ct Imaging [place] [address] Referral ID Status Reason Start Date Expiration Date V isits Requested Visits Authorized [id number] Closed Auto-Generate d Referral 08/22/2022 09/21/2023 1 1 Specialty Diagnoses / Procedures Referred By Contac t Referred To Contact Diagnoses Acute on chronic systolic CHF (congestive heart failure) (HCC) Procedures CONSULT TO ELECTROPHYSIOLOGY OFFICE/OUTPATIENT NEW HIGH MDM 60-74 MINUTES Santo Oneill MD [address] [place] [address] Angel Gaxiola MD [address] [id number] Referral ID Status Reason Start Date Expiration Date Visits Requested Visits Authorized [id number] Authorized PCP Requested Referral 04/16/2023 07/08/2023 1 1 Specialty Diagnoses / Procedures Referred By Contac t Referred [facility] Diagnoses Primary hypertension Procedures ECG COMPLETE ECG ROUTINE ECG W/LEAST 12 LDS W/I&R Santo Oneill MD [address] [place] [address] [facility] [address] [place] [address] Referral ID Status Reason Start Date Expiration Date Visits Requested Visits Authorized [id number] Pending Review Auto-Generat ed Referral 3 04/08/2024 1 1 Specialty Diagnoses / Procedures Referred By Contac t Referred To Contact CT IMAGING Diagnoses Word finding difficulty New onset of headaches after age [address] BRAIN WO IVCON CT HEAD/BRAIN W/O CONTRAST MATERIAL Mandeep Houser L, DO [address] [place] [address] [place] [address] Referral ID Status Reason Start Date Expiration Date Visits Requested Visits Authorized [id number] Authorized Auto-Generat ed Referral 10/31/2023 11/29/2024 1 1 Referral ID Status Reason Start Date Expiration Date V isits Requested Visits Authorized [id number] Closed Auto-Generate d Referral 10/31/2023 11/29/2024 1 1 Medications Administered Section Inactive Administered Medications - up to 3 most recent administrations Medication Order MAR Action Action Date Dose Rate Site benzocaine 20% 1 [place] (TOPEX) 1 [place], TOPICAL, ONCE, 1 dose, On Sun12/05/21 at 1030, 1 spray to the back of the throat prior to EGD - Pharmaceutical Waste: Aerosol -, Preprocedure Given 12/05/2021 9:50 AM EDT 1 [place] lactated ringers iv infusion 30 mL/hr, INTRAVENOUS, [...] section and content) DATE CREATED AUTHOR 02/21/2018 [facility] DATE CREATED AUTHOR AUTHOR'S ORGANIZ ATION 01/28/2019 [facility] [place] [place] DATE CREATED AUTHOR AUTHOR'S ORGANIZ ATION 02/09/2020 [facility] DATE CREATED AUTHOR AUTHOR'S ORGANIZ ATION 04/30/2020 [facility] DATE CREATED AUTHOR AUTHOR'S ORGANIZ ATION 01/11/2021 [facility] DATE CREATED AUTHOR AUTHOR'S ORGANIZ ATION 08/24/2023 [facility] DATE CREATED AUTHOR AUTHOR'S ORGANIZ ATION 11/03/2023 [facility] DATE CREATED AUTHOR AUTHOR'S ORGANIZ ATION 11/19/2023 [facility] DATE CREATED AUTHOR AUTHOR'S ORGANIZ ATION 04/26/2024 [facility] DATE CREATED AUTHOR AUTHOR'S ORGANIZ ATION 11/09/2024 [facility] Source Comments (unrecognize d section and content) In the event this informatio n is protected by the Federal Confidentiality of Alcohol and Drug Abuse Patient Records regulations: The Federal rules restrict any use of the information to criminally investigate or prosecute any alcohol or drug abuse patient.[facility] the event this information is protected by the Federal Confidentiality of Alcohol and Drug Abuse Patient Records regulations: The Federal rules restrict any use of the information to criminally investigate or prosecute any alcohol or drug abuse patient.[facility] the event this information is protected by the Federal Confidentiality of Alcohol and Drug Abuse Patient Records regulations: The Federal rules restrict any use of the information to criminally investigate or prosecute any alcohol or drug abuse patient.[facility] the event this information is protected by the Federal Confidentiality of Alcohol and Drug Abuse Patient Records regulations: The Federal rules restrict any use of the information to criminally investigate or prosecute any alcohol or drug abuse patient.[facility] the event this information is protected by the Federal Confidentiality of Alcohol and Drug Abuse Patient Records regulations: The Federal rules restrict any use of the information to criminally investigate or prosecute any alcohol or drug abuse patient.[facility] the event this information is protected by the Federal Confidentiality of Alcohol and Drug Abuse Patient Records regulations: The Federal rules restrict any use of the information to criminally investigate or prosecute any alcohol or drug abuse patient.[facility] the event this information is protected by the Federal Confidentiality of Alcohol and Drug Abuse Patient Records regulations: The Federal rules restrict any use of the information to criminally investigate or prosecute any alcohol or drug abuse patient.[facility] the event this information is protected by the Federal Confidentiality of Alcohol and Drug Abuse Patient Records regulations: The Federal rules restrict any use of the information to criminally investigate or prosecute any alcohol or drug abuse patient.[facility] the event this information is protected by the Federal Confidentiality of Alcohol and Drug Abuse Patient Records regulations: The Federal rules restrict any use of the information to criminally investigate or prosecute any alcohol or drug abuse patient.[facility] the event this information is protected by the Federal Confidentiality of Alcohol and Drug Abuse Patient Records regulations: The Federal rules restrict any use of the information to criminally investigate or prosecute any alcohol or drug abuse patient.[facility] the event this information is protected by the Federal Confidentiality of Alcohol and Drug Abuse Patient Records regulations: The Federal rules restrict any use of the information to criminally investigate or prosecute any alcohol or drug abuse patient.[facility] the event this information is protected by the Federal Confidentiality of Alcohol and Drug Abuse Patient Records regulations: The Federal rules restrict any use of the information to criminally investigate or prosecute any alcohol or drug abuse patient.[facility] the event this information is protected by the Federal Confidentiality of Alcohol and Drug Abuse Patient Records regulations: The Federal rules restrict any use of the information to criminally investigate or prosecute any alcohol or drug abuse patient.[facility] the event this information is protected by the Federal Confidentiality of Alcohol and Drug Abuse Patient Records regulations: The Federal rules restrict any use of the information to criminally investigate or prosecute any alcohol or drug abuse patient.[facility] the event this information is protected by the Federal Confidentiality of Alcohol and Drug Abuse Patient Records regulations: The Federal rules restrict any use of the information to criminally investigate or prosecute any alcohol or drug abuse patient.[facility] the event this information is protected by the Federal Confidentiality of Alcohol and Drug Abuse Patient Records regulations: The Federal rules restrict any use of the information to criminally investigate or prosecute any alcohol or drug abuse patient.[facility] the event this information is protected by the Federal Confidentiality of Alcohol and Drug Abuse Patient Records regulations: The Federal rules restrict any use of the information to criminally investigate or prosecute any alcohol or drug abuse patient.[facility] the event this information is protected by the Federal Confidentiality of Alcohol and Drug Abuse Patient Records regulations: The Federal rules restrict any use of the information to criminally investigate or prosecute any alcohol or drug abuse patient.[facility] the event this information is protected by the Federal Confidentiality of Alcohol and Drug Abuse Patient Records regulations: The Federal rules restrict any use of the information to criminally investigate or prosecute any alcohol or drug abuse patient.[facility] the event this information is protected by the Federal Confidentiality of Alcohol and Drug Abuse Patient Records regulations: The Federal rules restrict any use of the information to criminally investigate or prosecute any alcohol or drug abuse patient.[facility] the event this information is protected by the Federal Confidentiality of Alcohol and Drug Abuse Patient Records regulations: The Federal rules restrict any use of the information to criminally investigate or prosecute any alcohol or drug abuse patient.[facility]In the event this information is protected by the Federal Confidentiality of Alcohol and Drug Abuse Patient Records regulations: The Federal rules restrict any use of the information to criminally investigate or prosecute any alcohol or drug abuse patient.[facility] the event this information is protected by the Federal Confidentiality of Alcohol and Drug Abuse Patient Records regulations: The Federal rules restrict any use of the information to criminally investigate or prosecute any alcohol or drug abuse patient.[facility] the event this information is protected by the Federal Confidentiality of Alcohol and Drug Abuse Patient Records regulations: The Federal rules restrict any use of the information to criminally investigate or prosecute any alcohol or drug abuse patient.[facility] the event this information is protected by the Federal Confidentiality of Alcohol and Drug Abuse Patient Records regulations: The Federal rules restrict any use of the information to criminally investigate or prosecute any alcohol or drug abuse patient.[facility]In the event this information is protected by the Federal Confidentiality of Alcohol and Drug Abuse Patient Records regulations: The Federal rules restrict any use of the information to criminally investigate or prosecute any alcohol or drug abuse patient.[facility] the event this information is protected by the Federal Confidentiality of Alcohol and Drug Abuse Patient Records regulations: The Federal rules restrict any use of the information to criminally investigate or prosecute any alcohol or drug abuse patient.[facility] the event this information is protected by the Federal Confidentiality of Alcohol and Drug Abuse Patient Records regulations: The Federal rules restrict any use of the information to criminally investigate or prosecute any alcohol or drug abuse patient.[facility]In the event this information is protected by the Federal Confidentiality of Alcohol and Drug Abuse Patient Records regulations: The Federal rules restrict any use of the information to criminally investigate or prosecute any alcohol or drug abuse patient.[facility]In the event this information is protected by the Federal Confidentiality of Alcohol and Drug Abuse Patient Records regulations: The Federal rules restrict any use of the information to criminally investigate or prosecute any alcohol or drug abuse patient.[facility]In the event this information is protected by the Federal Confidentiality of Alcohol and Drug Abuse Patient Records regulations: The Federal rules restrict any use of the information to criminally investigate or prosecute any alcohol or drug abuse patient.[facility]In the event this information is protected by the Federal Confidentiality of Alcohol and Drug Abuse Patient Records regulations: The Federal rules restrict any use of the information to criminally investigate or prosecute any alcohol or drug abuse patient.[facility]In the event this information is protected by the Federal Confidentiality of Alcohol and Drug Abuse Patient Records regulations: The Federal rules restrict any use of the information to criminally investigate or prosecute any alcohol or drug abuse patient.[facility]In the event this information is protected by the Federal Confidentiality of Alcohol and Drug Abuse Patient Records regulations: The Federal rules restrict any use of the information to criminally investigate or prosecute any alcohol or drug abuse patient.[facility]In the event this information is protected by the Federal Confidentiality of Alcohol and Drug Abuse Patient Records regulations: The Federal rules restrict any use of the information to criminally investigate or prosecute any alcohol or drug abuse patient.[facility]In the event this information is protected by the Federal Confidentiality of Alcohol and Drug Abuse Patient Records regulations: The Federal rules restrict any use of the information to criminally investigate or prosecute any alcohol or drug abuse patient.[facility]In the event this information is protected by the Federal Confidentiality of Alcohol and Drug Abuse Patient Records regulations: The Federal rules restrict any use of the information to criminally investigate or prosecute any alcohol or drug abuse patient.[facility]In the event this information is protected by the Federal Confidentiality of Alcohol and Drug Abuse Patient Records regulations: The Federal rules restrict any use of the information to criminally investigate or prosecute any alcohol or drug abuse patient.[facility]In the event this information is protected by the Federal Confidentiality of Alcohol and Drug Abuse Patient Records regulations: The Federal rules restrict any use of the information to criminally investigate or prosecute any alcohol or drug abuse patient.[facility]In the event this information is protected by the Federal Confidentiality of Alcohol and Drug Abuse Patient Records regulations: The Federal rules restrict any use of the information to criminally investigate or prosecute any alcohol or drug abuse patient.[facility]In the event this information is protected by the Federal Confidentiality of Alcohol and Drug Abuse Patient Records regulations: The Federal rules restrict any use of the information to criminally investigate or prosecute any alcohol or drug abuse patient.[facility]In the event this information is protected by the Federal Confidentiality of Alcohol and Drug Abuse Patient Records regulations: The Federal rules restrict any use of the information to criminally investigate or prosecute any alcohol or drug abuse patient.[facility]In the event this information is protected by the Federal Confidentiality of Alcohol and Drug Abuse Patient Records regulations: The Federal rules restrict any use of the information to criminally investigate or prosecute any alcohol or drug abuse patient.[facility]In the event this information is protected by the Federal Confidentiality of Alcohol and Drug Abuse Patient Records regulations: The Federal rules restrict any use of the information to criminally investigate or prosecute any alcohol or drug abuse patient.[facility]In the event this information is protected by the Federal Confidentiality of Alcohol and Drug Abuse Patient Records regulations: The Federal rules restrict any use of the information to criminally investigate or prosecute any alcohol or drug abuse patient.[facility]In the event this information is protected by the Federal Confidentiality of Alcohol and Drug Abuse Patient Records regulations: The Federal rules restrict any use of the information to criminally investigate or prosecute any alcohol or drug abuse patient.[facility]In the event this information is protected by the Federal Confidentiality of Alcohol and Drug Abuse Patient Records regulations: The Federal rules restrict any use of the information to criminally investigate or prosecute any alcohol or drug abuse patient.[facility]In the event this information is protected by the Federal Confidentiality of Alcohol and Drug Abuse Patient Records regulations: The Federal rules restrict any use of the information to criminally investigate or prosecute any alcohol or drug abuse patient.[facility]In the event this information is protected by the Federal Confidentiality of Alcohol and Drug Abuse Patient Records regulations: The Federal rules restrict any use of the information to criminally investigate or prosecute any alcohol or drug abuse patient.[facility]In the event this information is protected by the Federal Confidentiality of Alcohol and Drug Abuse Patient Records regulations: The Federal rules restrict any use of the information to criminally investigate or prosecute any alcohol or drug abuse patient.[facility]In the event this information is protected by the Federal Confidentiality of Alcohol and Drug Abuse Patient Records regulations: The Federal rules restrict any use of the information to criminally investigate or prosecute any alcohol or drug abuse patient.[facility]In the event this information is protected by the Federal Confidentiality of Alcohol and Drug Abuse Patient Records regulations: The Federal rules restrict any use of the information to criminally investigate or prosecute any alcohol or drug abuse patient.[facility]In the event this information is protected by the Federal Confidentiality of Alcohol and Drug Abuse Patient Records regulations: The Federal rules restrict any use of the information to criminally investigate or prosecute any alcohol or drug abuse patient.[facility]In the event this information is protected by the Federal Confidentiality of Alcohol and Drug Abuse Patient Records regulations: The Federal rules restrict any use of the information to criminally investigate or prosecute any alcohol or drug abuse patient.[facility]In the event this information is protected by the Federal Confidentiality of Alcohol and Drug Abuse Patient Records regulations: The Federal rules restrict any use of the information to criminally investigate or prosecute any alcohol or drug abuse patient.[facility]In the event this information is protected by the Federal Confidentiality of Alcohol and Drug Abuse Patient Records regulations: The Federal rules restrict any use of the information to criminally investigate or prosecute any alcohol or drug abuse patient.[facility]In the event this information is protected by the Federal Confidentiality of Alcohol and Drug Abuse Patient Records regulations: The Federal rules restrict any use of the information to criminally investigate or prosecute any alcohol or drug abuse patient.[facility] [place] the event this information is protected by the Federal Confidentiality of Alcohol and Drug Abuse Patient Records regulations: The Federal rules restrict any use of the information to criminally investigate or prosecute any alcohol or drug abuse patient.[facility] [place] the event this information is protected by the Federal Confidentiality of Alcohol and Drug Abuse Patient Records regulations: The Federal rules restrict any use of the information to criminally investigate or prosecute any alcohol or drug abuse patient.[facility] [place] the event this information is protected by the Federal Confidentiality of Alcohol and Drug Abuse Patient Records regulations: The Federal rules restrict any use of the information to criminally investigate or prosecute any alcohol or drug abuse patient.[facility] [place] the event this information is protected by the Federal Confidentiality of Alcohol and Drug Abuse Patient Records regulations: The Federal rules restrict any use of the information to criminally investigate or prosecute any alcohol or drug abuse patient.[facility] [place] the event this information is protected by the Federal Confidentiality of Alcohol and Drug Abuse Patient Records regulations: The Federal rules restrict any use of the information to criminally investigate or prosecute any alcohol or drug abuse patient.[facility] [place]In the event this information is protected by the Federal Confidentiality of Alcohol and Drug Abuse Patient Records regulations: The Federal rules restrict any use of the information to criminally investigate or prosecute any alcohol or drug abuse patient.[facility] [place]In the event this information is protected by the Federal Confidentiality of Alcohol and Drug Abuse Patient Records regulations: The Federal rules restrict any use of the information to criminally investigate or prosecute any alcohol or drug abuse patient.[facility] [place]In the event this information is protected by the Federal Confidentiality of Alcohol and Drug Abuse Patient Records regulations: The Federal rules restrict any use of the information to criminally investigate or prosecute any alcohol or drug abuse patient.[facility] [place]In the event this information is protected by the Federal Confidentiality of Alcohol and Drug Abuse Patient Records regulations: The Federal rules restrict any use of the information to criminally investigate or prosecute any alcohol or drug abuse patient.[facility] [place]In the event this information is protected by the Federal Confidentiality of Alcohol and Drug Abuse Patient Records regulations: The Federal rules restrict any use of the information to criminally investigate or prosecute any alcohol or drug abuse patient.[facility] [place] the event this information is protected by the Federal Confidentiality of Alcohol and Drug Abuse Patient Records regulations: The Federal rules restrict any use of the information to criminally investigate or prosecute any alcohol or drug abuse patient.[facility] [place]In the event this information is protected by the Federal Confidentiality of Alcohol and Drug Abuse Patient Records regulations: The Federal rules restrict any use of the information to criminally investigate or prosecute any alcohol or drug abuse patient.[facility] [place]In the event this information is protected by the Federal Confidentiality of Alcohol and Drug Abuse Patient Records regulations: The Federal rules restrict any use of the information to criminally investigate or prosecute any alcohol or drug abuse patient.[facility] [place]In the event this information is protected by the Federal Confidentiality of Alcohol and Drug Abuse Patient Records regulations: The Federal rules restrict any use of the information to criminally investigate or prosecute any alcohol or drug abuse patient.[facility] [place]In the event this information is protected by the Federal Confidentiality of Alcohol and Drug Abuse Patient Records regulations: The Federal rules restrict any use of the information to criminally investigate or prosecute any alcohol or drug abuse patient.[facility] [place]In the event this information is protected by the Federal Confidentiality of Alcohol and Drug Abuse Patient Records regulations: The Federal rules restrict any use of the information to criminally investigate or prosecute any alcohol or drug abuse patient.[facility] [place]In the event this information is protected by the Federal Confidentiality of Alcohol and Drug Abuse Patient Records regulations: The Federal rules restrict any use of the information to criminally investigate or prosecute any alcohol or drug abuse patient.[facility] [place]In the event this information is protected by the Federal Confidentiality of Alcohol and Drug Abuse Patient Records regulations: The Federal rules restrict any use of the information to criminally investigate or prosecute any alcohol or drug abuse patient.[facility] [place]In the event this information is protected by the Federal Confidentiality of Alcohol and Drug Abuse Patient Records regulations: The Federal rules restrict any use of the information to criminally investigate or prosecute any alcohol or drug abuse patient.[facility] [place]In the event this information is protected by the Federal Confidentiality of Alcohol and Drug Abuse Patient Records regulations: The Federal rules restrict any use of the information to criminally investigate or prosecute any alcohol or drug abuse patient.[facility] [place]In the event this information is protected by the Federal Confidentiality of Alcohol and Drug Abuse Patient Records regulations: The Federal rules restrict any use of the information to criminally investigate or prosecute any alcohol or drug abuse patient.[facility] [place]In the event this information is protected by the Federal Confidentiality of Alcohol and Drug Abuse Patient Records regulations: The Federal rules restrict any use of the information to criminally investigate or prosecute any alcohol or drug abuse patient.[facility] [place]In the event this information is protected by the Federal Confidentiality of Alcohol and Drug Abuse Patient Records regulations: The Federal rules restrict any use of the information to criminally investigate or prosecute any alcohol or drug abuse patient.[facility] [place]In the event this information is protected by the Federal Confidentiality of Alcohol and Drug Abuse Patient Records regulations: The Federal rules restrict any use of the information to criminally investigate or prosecute any alcohol or drug abuse patient.[facility] [place]In the event this information is protected by the Federal Confidentiality of Alcohol and Drug Abuse Patient Records regulations: The Federal rules restrict any use of the information to criminally investigate or prosecute any alcohol or drug abuse patient.[facility] [place]In the event this information is protected by the Federal Confidentiality of Alcohol and Drug Abuse Patient Records regulations: The Federal rules restrict any use of the information to criminally investigate or prosecute any alcohol or drug abuse patient.[facility] [place]In the event this information is protected by the Federal Confidentiality of Alcohol and Drug Abuse Patient Records regulations: The Federal rules restrict any use of the information to criminally investigate or prosecute any alcohol or drug abuse patient.[facility] [place]In the event this information is protected by the Federal Confidentiality of Alcohol and Drug Abuse Patient Records regulations: The Federal rules restrict any use of the information to criminally investigate or prosecute any alcohol or drug abuse patient.[facility] [place]In the event this information is protected by the Federal Confidentiality of Alcohol and Drug Abuse Patient Records regulations: The Federal rules restrict any use of the information to criminally investigate or prosecute any alcohol or drug abuse patient.[facility] [place]In the event this information is protected by the Federal Confidentiality of Alcohol and Drug Abuse Patient Records regulations: The Federal rules restrict any use of the information to criminally investigate or prosecute any alcohol or drug abuse patient.[facility] [place]In the event this information is protected by the Federal Confidentiality of Alcohol and Drug Abuse Patient Records regulations: The Federal rules restrict any use of the information to criminally investigate or prosecute any alcohol or drug abuse patient.[facility] [place]In the event this information is protected by the Federal Confidentiality of Alcohol and Drug Abuse Patient Records regulations: The Federal rules restrict any use of the information to criminally investigate or prosecute any alcohol or drug abuse patient.[facility] [place]In the event this information is protected by the Federal Confidentiality of Alcohol and Drug Abuse Patient Records regulations: The Federal rules restrict any use of the information to criminally investigate or prosecute any alcohol or drug abuse patient.[facility] [place]In the event this information is protected by the Federal Confidentiality of Alcohol and Drug Abuse Patient Records regulations: The Federal rules restrict any use of the information to criminally investigate or prosecute any alcohol or drug abuse patient.[facility] [place]In the event this information is protected by the Federal Confidentiality of Alcohol and Drug Abuse Patient Records regulations: The Federal rules restrict any use of the information to criminally investigate or prosecute any alcohol or drug abuse patient.[facility] [place]In the event this information is protected by the Federal Confidentiality of Alcohol and Drug Abuse Patient Records regulations: The Federal rules restrict any use of the information to criminally investigate or prosecute any alcohol or drug abuse patient.[facility] [place]In the event this information is protected by the Federal Confidentiality of Alcohol and Drug Abuse Patient Records regulations: The Federal rules restrict any use of the information to criminally investigate or prosecute any alcohol or drug abuse patient.[facility] [place]In the event this information is protected by the Federal Confidentiality of Alcohol and Drug Abuse Patient Records regulations: The Federal rules restrict any use of the information to criminally investigate or prosecute any alcohol or drug abuse patient.[facility] [place]In the event this information is protected by the Federal Confidentiality of Alcohol and Drug Abuse Patient Records regulations: The Federal rules restrict any use of the information to criminally investigate or prosecute any alcohol or drug abuse patient.[facility] [place]In the event this information is protected by the Federal Confidentiality of Alcohol and Drug Abuse Patient Records regulations: The Federal rules restrict any use of the information to criminally investigate or prosecute any alcohol or drug abuse patient.[facility] [place]In the event this information is protected by the Federal Confidentiality of Alcohol and Drug Abuse Patient Records regulations: The Federal rules restrict any use of the information to criminally investigate or prosecute any alcohol or drug abuse patient.[facility] [place]In the event this information is protected by the Federal Confidentiality of Alcohol and Drug Abuse Patient Records regulations: The Federal rules restrict any use of the information to criminally investigate or prosecute any alcohol or drug abuse patient.[facility] [place]In the event this information is protected by the Federal Confidentiality of Alcohol and Drug Abuse Patient Records regulations: The Federal rules restrict any use of the information to criminally investigate or prosecute any alcohol or drug abuse patient.[facility] [place]In the event this information is protected by the Federal Confidentiality of Alcohol and Drug Abuse Patient Records regulations: The Federal rules restrict any use of the information to criminally investigate or prosecute any alcohol or drug abuse patient.[facility] [place]In the event this information is protected by the Federal Confidentiality of Alcohol and Drug Abuse Patient Records regulations: The Federal rules restrict any use of the information to criminally investigate or prosecute any alcohol or drug abuse patient.[facility] [place]In the event this information is protected by the Federal Confidentiality of Alcohol and Drug Abuse Patient Records regulations: The Federal rules restrict any use of the information to criminally investigate or prosecute any alcohol or drug abuse patient.[facility] [place]In the event this information is protected by the Federal Confidentiality of Alcohol and Drug Abuse Patient Records regulations: The Federal rules restrict any use of the information to criminally investigate or prosecute any alcohol or drug abuse patient.[facility] [place]In the event this information is protected by the Federal Confidentiality of Alcohol and Drug Abuse Patient Records regulations: The Federal rules restrict any use of the information to criminally investigate or prosecute any alcohol or drug abuse patient.[facility] [place]In the event this information is protected by the Federal Confidentiality of Alcohol and Drug Abuse Patient Records regulations: The Federal rules restrict any use of the information to criminally investigate or prosecute any alcohol or drug abuse patient.[facility] [place]In the event this information is protected by the Federal Confidentiality of Alcohol and Drug Abuse Patient Records regulations: The Federal rules restrict any use of the information to criminally investigate or prosecute any alcohol or drug abuse patient.[facility] [place]In the event this information is protected by the Federal Confidentiality of Alcohol and Drug Abuse Patient Records regulations: The Federal rules restrict any use of the information to criminally investigate or prosecute any alcohol or drug abuse patient.[facility] [place]In the event this information is protected by the Federal Confidentiality of Alcohol and Drug Abuse Patient Records regulations: The Federal rules restrict any use of the information to criminally investigate or prosecute any alcohol or drug abuse patient.[facility] [place]In the event this information is protected by the Federal Confidentiality of Alcohol and Drug Abuse Patient Records regulations: The Federal rules restrict any use of the information to criminally investigate or prosecute any alcohol or drug abuse patient.[facility] [place]In the event this information is protected by the Federal Confidentiality of Alcohol and Drug Abuse Patient Records regulations: The Federal rules restrict any use of the information to criminally investigate or prosecute any alcohol or drug abuse patient.[facility] [place]In the event this information is protected by the Federal Confidentiality of Alcohol and Drug Abuse Patient Records regulations: The Federal rules restrict any use of the information to criminally investigate or prosecute any alcohol or drug abuse patient.[facility] [place]In the event this information is protected by the Federal Confidentiality of Alcohol and Drug Abuse Patient Records regulations: The Federal rules restrict any use of the information to criminally investigate or prosecute any alcohol or drug abuse patient.[facility] [place]In the event this information is protected by the Federal Confidentiality of Alcohol and Drug Abuse Patient Records regulations: The Federal rules restrict any use of the information to criminally investigate or prosecute any alcohol or drug abuse patient.[facility] [place]In the event this information is protected by the Federal Confidentiality of Alcohol and Drug Abuse Patient Records regulations: The Federal rules restrict any use of the information to criminally investigate or prosecute any alcohol or drug abuse patient.[facility] [place]In the event this information is protected by the Federal Confidentiality of Alcohol and Drug Abuse Patient Records regulations: The Federal rules restrict any use of the information to criminally investigate or prosecute any alcohol or drug abuse patient.[facility] [place]In the event this information is protected by the Federal Confidentiality of Alcohol and Drug Abuse Patient Records regulations: The Federal rules restrict any use of the information to criminally investigate or prosecute any alcohol or drug abuse patient.[facility] [place]In the event this information is protected by the Federal Confidentiality of Alcohol and Drug Abuse Patient Records regulations: The Federal rules restrict any use of the information to criminally investigate or prosecute any alcohol or drug abuse patient.[facility] [place]In the event this information is protected by the Federal Confidentiality of Alcohol and Drug Abuse Patient Records regulations: The Federal rules restrict any use of the information to criminally investigate or prosecute any alcohol or drug abuse patient.[facility] [place]In the event this information is protected by the Federal Confidentiality of Alcohol and Drug Abuse Patient Records regulations: The Federal rules restrict any use of the information to criminally investigate or prosecute any alcohol or drug abuse patient.[facility] [place]In the event this information is protected by the Federal Confidentiality of Alcohol and Drug Abuse Patient Records regulations: The Federal rules restrict any use of the information to criminally investigate or prosecute any alcohol or drug abuse patient.[facility] [place]In the event this information is protected by the Federal Confidentiality of Alcohol and Drug Abuse Patient Records regulations: The Federal rules restrict any use of the information to criminally investigate or prosecute any alcohol or drug abuse patient.[facility] [place]In the event this information is protected by the Federal Confidentiality of Alcohol and Drug Abuse Patient Records regulations: The Federal rules restrict any use of the information to criminally investigate or prosecute any alcohol or drug abuse patient.[facility] [place]In the event this information is protected by the Federal Confidentiality of Alcohol and Drug Abuse Patient Records regulations: The Federal rules restrict any use of the information to criminally investigate or prosecute any alcohol or drug abuse patient.[facility] [place]In the event this information is protected by the Federal Confidentiality of Alcohol and Drug Abuse Patient Records regulations: The Federal rules restrict any use of the information to criminally investigate or prosecute any alcohol or drug abuse patient.[facility] [place]In the event this information is protected by the Federal Confidentiality of Alcohol and Drug Abuse Patient Records regulations: The Federal rules restrict any use of the information to criminally investigate or prosecute any alcohol or drug abuse patient.[facility] [place]In the event this information is protected by the Federal Confidentiality of Alcohol and Drug Abuse Patient Records regulations: The Federal rules restrict any use of the information to criminally investigate or prosecute any alcohol or drug abuse patient.[facility] [place]In the event this information is protected by the Federal Confidentiality of Alcohol and Drug Abuse Patient Records regulations: The Federal rules restrict any use of the information to criminally investigate or prosecute any alcohol or drug abuse patient.[facility] [place]In the event this information is protected by the Federal Confidentiality of Alcohol and Drug Abuse Patient Records regulations: The Federal rules restrict any use of the information to criminally investigate or prosecute any alcohol or drug abuse patient.[facility] [place]In the event this information is protected by the Federal Confidentiality of Alcohol and Drug Abuse Patient Records regulations: The Federal rules restrict any use of the information to criminally investigate or prosecute any alcohol or drug abuse patient.[facility] [place]In the event this information is protected by the Federal Confidentiality of Alcohol and Drug Abuse Patient Records regulations: The Federal rules restrict any use of the information to criminally investigate or prosecute any alcohol or drug abuse patient.[facility] [place]In the event this information is protected by the Federal Confidentiality of Alcohol and Drug Abuse Patient Records regulations: The Federal rules restrict any use of the information to criminally investigate or prosecute any alcohol or drug abuse patient.[facility] [place]In the event this information is protected by the Federal Confidentiality of Alcohol and Drug Abuse Patient Records regulations: The Federal rules restrict any use of the information to criminally investigate or prosecute any alcohol or drug abuse patient.[facility] [place]In the event this information is protected by the Federal Confidentiality of Alcohol and Drug Abuse Patient Records regulations: The Federal rules restrict any use of the information to criminally investigate or prosecute any alcohol or drug abuse patient.[facility] [place]In the event this information is protected by the Federal Confidentiality of Alcohol and Drug Abuse Patient Records regulations: The Federal rules restrict any use of the information to criminally investigate or prosecute any alcohol or drug abuse patient.[facility] [place]In the event this information is protected by the Federal Confidentiality of Alcohol and Drug Abuse Patient Records regulations: The Federal rules restrict any use of the information to criminally investigate or prosecute any alcohol or drug abuse patient.[facility] [facility] [place] Reason for Visit (unrecogniz ed section and content) Reason Comments PT Discharge Specialty Diagnoses / Procedures Referred By Contac t Referred To Contact [facility] Diagnoses Left shoulder pain, unspecified chronicity Lateral epicondylitis of left elbow Procedures CONSULT TO PHYSICAL THERAPY PHYSICAL THERAPY EVALUATION HIGH COMPLEX 45 MINS Maycol Valladares MD [address] [place] [address] [facility] [address] [place] [address] Referral ID Status Reason Start Date Expiration Date Visits Requested Visits Authorized [id number] Authorized PCP Requested Referral Auto-Generate d Referral [...] & PELVIS W/CONTRAST Alejandrina Harvey APRN.CNP [address] [place] [address] Ct Imaging Referral ID Status Reason Start Date Expiration Date V isits Requested Visits Authorized [id number] Closed Auto-Generate d Referral 10/19/2021 11/18/2022 1 [...] & PELVIS W/CONTRAST Mandeep Houser DO [address] [place] [address] [place] [address] Referral ID Status Reason Start Date Expiration Date V isits Requested Visits Authorized [id number] Closed Auto-Generate d Referral 08/22/2022 09/21/2023 1 [...] HEAD/BRAIN W/O CONTRAST MATERIAL Mandeep Houser DO [address] [place] [address] [place] [address] Referral ID Status Reason Start Date Expiration Date V isits Requested Visits Authorized [id number] Closed Auto-Generate d Referral 10/31/2023 11/29/2024 1 1 Reason Comments Appointment OMT Reason Comments Results CT Brain 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 CHF Reason Comments Transition Of Care Reason Comments omt Reason Comments OMT Reason Comments CARD Follow Up 3 Month PMH: non-ischemic CM, HTN, Hypothyroidism, LBBB 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 Reason Comments Establish Care 5 mos follow [...] Care Teams (unrecognized sec tion and content) Medical Laboratory Assistant Relationship Specialty Start Date End Date Maycol Valladares MD [address] [place] [address] PCP - General Internal Medicine 06/14/20 Galen Heaton MD [address] [place] [address] Primary Staff Physician Cardiology 07/30/18 Medical Laboratory Assistant Relationship Specialty Start Date End Date Maycol Valladares MD [address] [place] [address] PCP - General Internal Medicine 06/14/20 Galen Heaton MD [address] [place] [address] Primary Staff Physician Cardiology 07/30/18 Medical Laboratory Assistant Relationship Specialty Start Date End Date Maycol Valladares MD [address] [place] [address] PCP - General Internal Medicine 06/14/20 Galen Heaton MD [address] [place] [address] Primary Staff Physician Cardiology 07/30/18 Medical Laboratory Assistant Relationship Specialty Start Date End Date Maycol Valladares MD [address] [place] [address] PCP - General Internal Medicine 06/14/20 Galen Heaton MD [address] [facility] [place] [address] Primary Staff Physician Cardiology 07/30/18 Medical Laboratory Assistant Relationship Specialty Start Date End Date Mandeep Houser, DO [address] [facility] [place] [address] PCP - General Family Practice 09/01/21 Galen Heaton MD [address] [place] [address] Primary Staff Physician Cardiology 07/30/18 Medical Laboratory Assistant Relationship Specialty Start Date End Date Mandeep Houser, DO [address] [facility] [place] [address] PCP - General Family Practice 09/01/21 Galen Heaton MD [address] [place] [address] Primary Staff Physician Cardiology 07/30/18 Medical Laboratory Assistant Relationship Specialty Start Date End Date Mandeep Houser, DO [address] [facility] [place] [address] PCP - General Family Practice 09/01/21 Galen Heaton MD [address] [place] [address] Primary Staff Physician Cardiology 07/30/18 Medical Laboratory Assistant Relationship Specialty Start Date End Date Mandeep Houser, DO [address] [facility] [place] [address] PCP - General Family Practice 09/01/21 Galen Heaton MD [address] [place] [address] Primary Staff Physician Cardiology 07/30/18 Medical Laboratory Assistant Relationship Specialty Start Date End Date Maycol Valladares MD [address] [facility] [place] [address] PCP - General Internal Medicine 06/14/20 08/31/21 Mandeep Houser, DO [address] [place] [address] PCP - General Family Practice 09/01/21 Galen Heaton MD [address] [place] [address] Primary Staff Physician Cardiology 07/30/18 Medical Laboratory Assistant Relationship Specialty Start Date End Date Mandeep Houser, DO [address] [place] [address] PCP - General Family Practice 09/01/21 Galen Heaton MD [address] [place] [address] Primary Staff Physician Cardiology 07/30/18 Medical Laboratory Assistant Relationship Specialty Start Date End Date Mandeep Houser, DO [address] [facility] [place] [address] PCP - General Family Practice 09/01/21 Galen Heaton MD [address] [place] [address] Primary Staff Physician Cardiology 07/30/18 Medical Laboratory Assistant Relationship Specialty Start Date End Date Mandeep Houser, DO [address] [facility] [place] [address] PCP - General Family Practice 09/01/21 Galen Heaton MD [address] [place] [address] Primary Staff Physician Cardiology 07/30/18 Medical Laboratory Assistant Relationship Specialty Start Date End Date Mandeep Houser, DO [address] [facility] [place] [address] PCP - General Family Practice 09/01/21 Galen Heaton MD [address] [place] [address] Primary Staff Physician Cardiology 07/30/18 Medical Laboratory Assistant Relationship Specialty Start Date End Date Mandeep Houser, DO [address] [facility] [place] [address] PCP - General Family Practice 09/01/21 Galen Heaton MD [address] [place] [address] Primary Staff Physician Cardiology 07/30/18 Medical Laboratory Assistant Relationship Specialty Start Date End Date Mandeep Houser, DO [address] [place] [address] PCP - General Family Practice 09/01/21 Galen Heaton MD [address] [place] [address] Primary Staff Physician Cardiology 07/30/18 Medical Laboratory Assistant Relationship Specialty Start Date End Date Mandeep Houser, DO [address] [place] [address] PCP - General Family Practice 09/01/21 Galen Heaton MD [address] [place] [address] Primary Staff Physician Cardiology 07/30/18 Medical Laboratory Assistant Relationship Specialty Start Date End Date Mandeep Houser, DO [address] [place] [address] PCP - General Family Practice 09/01/21 Galen Heaton MD [address] [place] [address] Primary Staff Physician Cardiology 07/30/18 Medical Laboratory Assistant Relationship Specialty Start Date End Date Mandeep Houser, DO [address] [place] [address] PCP - General Family Practice 09/01/21 Galen Heaton MD [address] [place] [address] Primary Staff Physician Cardiology 07/30/18 Medical Laboratory Assistant Relationship Specialty Start Date End Date Mandeep Houser, DO [address] [place] [address] PCP - General Family Practice 09/01/21 Galen Heaton MD [address] [place] [address] Primary Staff Physician Cardiology 07/30/18 Medical Laboratory Assistant Relationship Specialty Start Date End Date Mandeep Houser, DO [address] [facility] [place] [address] PCP - General Family Practice 09/01/21 Galen Heaton MD [address] [place] [address] Primary Staff Physician Cardiology 07/30/18 Medical Laboratory Assistant Relationship Specialty Start Date End Date Mandeep Houser, DO [address] [facility] [place] [address] PCP - General Family Practice 09/01/21 Galen Heaton MD [address] [place] [address] Primary Staff Physician Cardiology 07/30/18 Medical Laboratory Assistant Relationship Specialty Start Date End Date Mandeep Houser, DO [address] [facility] [place] [address] PCP - General Family Practice 09/01/21 Galen Heaton MD [address] [place] [address] Primary Staff Physician Cardiology 07/30/18 Medical Laboratory Assistant Relationship Specialty Start Date End Date Mandeep Houser, DO [address] [facility] [place] [address] PCP - General Family Medicine 09/01/21 Galen Heaton MD [address] [place] [address] Primary Staff Physician Cardiology 07/30/18 Medical Laboratory Assistant Relationship Specialty Start Date End Date Mandeep Houser, DO [address] [facility] [place] [address] PCP - General Family Medicine 09/01/21 Galen Heaton MD [address] [place] [facility] [address] Primary Staff Physician Cardiology 07/30/18 Medical Laboratory Assistant Relationship Specialty Start Date End Date Mandeep Houser, DO [address] [facility] [place] [address] PCP - General Family Medicine 09/01/21 Galen Heaton MD [address] [facility] [place] [address] Primary Staff Physician Cardiology 07/30/18 Medical Laboratory Assistant Relationship Specialty Start Date End Date Mandeep Houser, DO [address] [facility] [place] [address] PCP - General Family Medicine 09/01/21 Galen Heaton MD [address] [facility] [address] Primary Staff Physician Cardiology 07/30/18 Medical Laboratory Assistant Relationship Specialty Start Date End Date Mandeep Houser, DO [address] [facility] [place] [address] PCP - General Family Medicine 09/01/21 Galen Heaton MD [address] [facility] [place] [address] Primary Staff Physician Cardiology 07/30/18 Medical Laboratory Assistant Relationship Specialty Start Date End Date Mandeep Houser, DO [address] [facility] [place] [address] PCP - General Family Medicine 09/01/21 Galen Heaton MD [address] [place] [address] Primary Staff Physician Cardiology 07/30/18 Medical Laboratory Assistant Relationship Specialty Start Date End Date Mandeep Houser, DO [address] [facility] [place] [address] PCP - General Family Medicine 09/01/21 Galen Heaton MD [address] [place] [address] Primary Staff Physician Cardiology 07/30/18 Medical Laboratory Assistant Relationship Specialty Start Date End Date Mandeep Houser, DO [address] [facility] [place] [address] PCP - General Family Medicine 09/01/21 Galen Heaton MD [address] [place] [address] Primary Staff Physician Cardiology 07/30/18 Medical Laboratory Assistant Relationship Specialty Start Date End Date Mandeep Houser, DO [address] [facility] [place] [address] PCP - General Family Medicine 09/01/21 Galen Heaton MD [address] [place] [address] Primary Staff Physician Cardiology 07/30/18 Medical Laboratory Assistant Relationship Specialty Start Date End Date Mandeep Houser, DO [address] [facility] [place] [address] PCP - General Family Medicine 09/01/21 Gaeln Heaton MD [address] [place] [address] Primary Staff Physician Cardiology 07/30/18 Medical Laboratory Assistant Relationship Specialty Start Date End Date Mandeep Houser, DO [address] [facility] [place] [address] PCP - General Family Medicine 09/01/21 Galen Heaton MD [address] [place] [address] Primary Staff Physician Cardiology 07/30/18 Medical Laboratory Assistant Relationship Specialty Start Date End Date Mandeep Houser, DO [address] [facility] [place] [address] PCP - General Family Medicine 09/01/21 Galen Heaton MD [address] [place] [address] Primary Staff Physician Cardiology 07/30/18 Medical Laboratory Assistant Relationship Specialty Start Date End Date Mandeep Houser DO [address] [facility] [place] [address] PCP - General Family Medicine 09/01/21 Galen Heaton MD [address] [place] [address] Primary Staff Physician Cardiology 07/30/18 Medical Laboratory Assistant Relationship Specialty Start Date End Date Mandeep Houser DO [address] [place] [address] PCP - General Family Medicine 09/01/21 Galen Heaton MD [address] [place] [address] Primary Staff Physician Cardiology 07/30/18 Medical Laboratory Assistant Relationship Specialty Start Date End Date Mandeep Houser DO [address] [place] [address] PCP - General Family Medicine 09/01/21 Galen Heaton MD [address] [place] [address] Primary Staff Physician Cardiology 07/30/18 Medical Laboratory Assistant Relationship Specialty Start Date End Date Mandeep Houser DO [address] [place] [address] PCP - General Family Medicine 09/01/21 Galen Heaton MD [address] [place] [address] Primary Staff Physician Cardiology 07/30/18 Medical Laboratory Assistant Relationship Specialty Start Date End Date Mandeep Houser DO [address] [place] [address] PCP - General Family Medicine 09/01/21 Galen Heaton MD [address] [place] [address] Primary Staff Physician Cardiology 07/30/18 Medical Laboratory Assistant Relationship Specialty Start Date End Date Mandeep Houser DO [address] [place] [address] PCP - General Family Medicine 09/01/21 Galen Heaton MD [address] [place] [address] Primary Staff Physician Cardiology 07/30/18 Medical Laboratory Assistant Relationship Specialty Start Date End Date Mandeep Houser DO [address] [place] [address] PCP - General Family Medicine 09/01/21 Galen Heaton MD [address] [place] [address] Primary Staff Physician Cardiology 07/30/18 Medical Laboratory Assistant Relationship Specialty Start Date End Date Rafael Frank III [address] [phone] PCP - General Family Medicine 09/02/12 05/23/20 Galen Heaton MD [address] [place] [address] Primary Staff Physician Cardiology 07/30/18 Medical Laboratory Assistant Relationship Specialty Start Date End Date Mandeep Houser DO [address] [place] [address] PCP - General Family Medicine 09/01/21 Galen Heaton MD [address] [place] [address] Primary Staff Physician Cardiology 07/30/18 Medical Laboratory Assistant Relationship Specialty Start Date End Date Rafael Frank LISA [address] [phone] PCP - General Family Medicine 09/02/12 05/23/20 Galen Heaton MD [address] [place] [address] Primary Staff Physician Cardiology 07/30/18 Medical Laboratory Assistant Relationship Specialty Start Date End Date Mandeep Houser DO [address] [place], [place] [address]81 PCP - General Family Medicine 09/01/21 Galen Heaton MD [address] [place] [address] Primary Staff Physician Cardiology 07/30/18 Medical Laboratory Assistant Relationship Specialty Start Date End Date Mandeep Houser DO [address] [place] [address] PCP - General Family Medicine 09/01/21 Galen Heaton MD [address] [place], [place] [address] Primary Staff Physician Cardiology 07/30/18 Medical Laboratory Assistant Relationship Specialty Start Date End Date Mandeep Houser DO [address] [place] [address] PCP - General Family Medicine 09/01/21 Galen Heaton MD [address] [place] [address] Primary Staff Physician Cardiology 07/30/18 Medical Laboratory Assistant Relationship Specialty Start Date End Date Mandeep Houser DO [address] [place] [address] PCP - General Family Medicine 09/01/21 Galen Heaton MD [address] [place], [place] [address] [phone] Primary Staff Physician Cardiology 07/30/18 Medical Laboratory Assistant Relationship Specialty Start Date End Date Mandeep Houser DO [address] [place] [address] PCP - General Family Medicine 09/01/21 Galen Heaton MD [address] [place] [address] Primary Staff Physician Cardiology 07/30/18 Medical Laboratory Assistant Relationship Specialty Start Date End Date Mandeep Houser DO [address] [place] [address] PCP - General Family Medicine 09/01/21 Galen Heaton MD [address] [place] [address] Primary Staff Physician Cardiology 07/30/18 Medical Laboratory Assistant Relationship Specialty Start Date End Date Mandeep Houser DO [address] [place] [address] PCP - General Family Medicine 09/01/21 Galen Heaton MD [address] [place] [address] Primary Staff Physician Cardiology 07/30/18 Medical Laboratory Assistant Relationship Specialty Start Date End Date Mandeep Houser DO [address] [place] [address] PCP - General Family Medicine 09/01/21 Galen Heaton MD [address] [place] [address] Primary Staff Physician Cardiology 07/30/18 Fitz Mcqueen RN [address] [place] [address] Primary Care Materials Planner Internal Medicine 07/19/23 Medical Laboratory Assistant Relationship Specialty Start Date End Date Mandeep Houser DO [address] [place] [address] PCP - General Family Medicine 09/01/21 Galen Heaton MD [address] [place] [address] Primary Staff Physician Cardiology 07/30/18 Fitz Mcqueen RN [address] [facility] [place] [address] Primary Care Materials Planner Internal Medicine 07/19/23 Medical Laboratory Assistant Relationship Specialty Start Date End Date Mandeep Houser DO [address] [place] [address] PCP - General Family Medicine 09/01/21 Galen Heaton MD [address] [facility] [place] [address] Primary Staff Physician Cardiology 07/30/18 Fitz Mcqueen RN [address] [place] [address] Primary Care Materials Planner Internal Medicine 07/19/23 Medical Laboratory Assistant Relationship Specialty Start Date End Date Mandeep Houser DO [address] [place] [address] PCP - General Family Medicine 09/01/21 Galen Heaton MD [address] [facility] [place] [address] Primary Staff Physician Cardiology 07/30/18 Fitz Mcqueen RN [address] [place] [address] Primary Care Materials Planner Internal Medicine 07/19/23 Medical Laboratory Assistant Relationship Specialty Start Date End Date Mandeep Houser DO [address] [place] [address] PCP - General Family Medicine 09/01/21 Galen Heaton MD [address] [facility] [place] [address] Primary Staff Physician Cardiology 07/30/18 Fitz Mcqueen RN [address] [place] [address] Primary Care Materials Planner Internal Medicine 07/19/23 Medical Laboratory Assistant Relationship Specialty Start Date End Date Mandeep Houser DO [address] [place] [address] PCP - General Family Medicine 09/01/21 Galen Heaton MD [address] [place] [address] Primary Staff Physician Cardiology 07/30/18 Medical Laboratory Assistant Relationship Specialty Start Date End Date Mandeep Houser DO [address] [place] [address] PCP - General Family Medicine 09/01/21 Galen Heaton MD [address] [facility] [place] [address] Primary Staff Physician Cardiology 07/30/18 Medical Laboratory Assistant Relationship Specialty Start Date End Date Mandeep Houser DO [address] [place] [address] PCP - General Family Medicine 09/01/21 Galen Heaton MD [address] [place] [address] Primary Staff Physician Cardiology 07/30/18 Thuy Aguirre, AQUATIC LIFE LABORER.MEDICAL SCIENTIST [address] [place] [address] Cardiology 09/05/23 Team Status: Active Member Role [...] ALEJANDRE Attending Provider, Referring Provider Ac tive Medical Laboratory Assistant Relationship Specialty Start Date End Date Mandeep Houser DO [address] [place] [address] PCP - General Family Medicine 09/01/21 Galen Heaton MD [address] [place] [address] Primary Staff Physician Cardiology 07/30/18 Thuy Aguirre, AQUATIC LIFE LABORER.MEDICAL SCIENTIST [address] [place] [address] Cardiology 09/05/23 Medical Laboratory Assistant Relationship Specialty Start Date End Date Mandeep Houser DO [address] [place] [address] PCP - General Family Medicine 09/01/21 Galen Heaton MD [address] [place] [address] Primary Staff Physician Cardiology 07/30/18 Thuy Aguirre, AQUATIC LIFE LABORER.MEDICAL SCIENTIST [address] [place] [address] Cardiology 09/05/23 Medical Laboratory Assistant Relationship Specialty Start Date End Date Mandeep Houser DO [address] [place] [address] PCP - General Family Medicine 09/01/21 Galen Heaton MD [address] [place] [address] Primary Staff Physician Cardiology 07/30/18 Thuy Aguirre, AQUATIC LIFE LABORER.MEDICAL SCIENTIST [address] [place] [address] Cardiology 09/05/23 Medical Laboratory Assistant Relationship Specialty Start Date End Date Mandeep Houser DO [address] [place] [address] PCP - General Family Medicine 09/01/21 Galen Heaton MD [address] [place] [address] Primary Staff Physician Cardiology 07/30/18 Thuy Aguirre, AQUATIC LIFE LABORER.MEDICAL SCIENTIST [address] [place] [address] Cardiology 09/05/23 Medical Laboratory Assistant Relationship Specialty Start Date End Date Mandeep Houser DO [address] [place] [address] PCP - General Family Medicine 09/01/21 Galen Heaton MD [address] [place] [address] Primary Staff Physician Cardiology 07/30/18 Thuy Aguirre, AQUATIC LIFE LABORER.MEDICAL SCIENTIST [address] [place] [address] Cardiology 09/05/23 Medical Laboratory Assistant Relationship Specialty Start Date End Date Mandeep Houser DO [address] [place] [address] PCP - General Family Medicine 09/01/21 Galen Heaton MD [address] [place] [address] Primary Staff Physician Cardiology 07/30/18 Thuy Aguirre, AQUATIC LIFE LABORER.MEDICAL SCIENTIST [address] [place] [address] Cardiology 09/05/23 Medical Laboratory Assistant Relationship Specialty Start Date End Date Mandeep Houser DO [address] [place] [address] PCP - General Family Medicine 09/01/21 Galen Heaton MD [address] [place] [address] Primary Staff Physician Cardiology 07/30/18 Thuy Aguirre, AQUATIC LIFE LABORER.MEDICAL SCIENTIST [address] [place] [address] Cardiology 09/05/23 Medical Laboratory Assistant Relationship Specialty Start Date End Date Mandeep Houser DO [address] [place] [address] PCP - General Family Medicine 09/01/21 Galen Heaton MD [address] [place] [address] Primary Staff Physician Cardiology 07/30/18 Thuy Aguirre, AQUATIC LIFE LABORER.MEDICAL SCIENTIST [address] [place] [address] Cardiology 09/05/23 Medical Laboratory Assistant Relationship Specialty Start Date End Date Mandeep Houser DO [address] [place] [address] PCP - General Family Medicine 09/01/21 Galen Heaton MD [address] [place] [address] Primary Staff Physician Cardiology 07/30/18 Thuy Aguirre, AQUATIC LIFE LABORER.MEDICAL SCIENTIST [address] [place] [address] Cardiology 09/05/23 Medical Laboratory Assistant Relationship Specialty Start Date End Date Mnadeep Houser DO [address] [place] [address] PCP - General Family Medicine 09/01/21 Galen Heaton MD [address] [place] [address] Primary Staff Physician Cardiology 07/30/18 hTuy Aguirre, AQUATIC LIFE LABORER.MEDICAL SCIENTIST [address] [place] [address] Cardiology 09/05/23 Medical Laboratory Assistant Relationship Specialty Start Date End Date Mandeep Houser DO [address] [place] [address] PCP - General Family Medicine 09/01/21 Galen Heaton MD [address] [place] [address] Primary Staff Physician Cardiology 07/30/18 Thuy Aguirre, AQUATIC LIFE LABORER.MEDICAL SCIENTIST [address] [place] [address] Cardiology 09/05/23 Medical Laboratory Assistant Relationship Specialty Start Date End Date Mandeep Houser DO [address] [place] [address] PCP - General Family Medicine 09/01/21 Galen Heaton MD [address] [place] [address] Primary Staff Physician Cardiology 07/30/18 Thuy Aguirre, AQUATIC LIFE LABORER.MEDICAL SCIENTIST [address] [place] [address] Cardiology 09/05/23 Medical Laboratory Assistant Relationship Specialty Start Date End Date Mandeep Houser DO [address] [place] [address] PCP - General Family Medicine 09/01/21 Galen Heaton MD [address] [place] [address] Primary Staff Physician Cardiology 07/30/18 Thuy Aguirre, AQUATIC LIFE LABORER.MEDICAL SCIENTIST [address] [place] [address] Cardiology 09/05/23 Medical Laboratory Assistant Relationship Specialty Start Date End Date Mandeep Houser DO [address] [place] [address] PCP - General Family Medicine 09/01/21 Galen Heaton MD [address] [place] [address] Primary Staff Physician Cardiology 07/30/18 Tuhy Aguirre, AQUATIC LIFE LABORER.MEDICAL SCIENTIST [address] [place] [address] Cardiology 09/05/23 Medical Laboratory Assistant Relationship Specialty Start Date End Date Mandeep Houser DO [address] [place] [address] PCP - General Family Medicine 09/01/21 Galen Heaton MD [address] [place] [address] Primary Staff Physician Cardiology 07/30/18 Thuy Aguirre, AQUATIC LIFE LABORER.MEDICAL SCIENTIST [address] [place] [address] Cardiology 09/05/23 ProviderUvaldo MD Nutrition And Dietetics Instructor 11/18/23 12/01/23 Medical Laboratory Assistant Relationship Specialty Start Date End Date Mandeep Houser DO [address] [place] [address] PCP - General Family Medicine 09/01/21 Galen Heaton MD [address] [place] [address] Primary Staff Physician Cardiology 07/30/18 Thuy Aguirre, AQUATIC LIFE LABORER.MEDICAL SCIENTIST [address] [place] [address] Cardiology 09/05/23 Medical Laboratory Assistant Relationship Specialty Start Date End Date Mandeep Houser DO [address] [place] [address] PCP - General Family Medicine 09/01/21 Galen Heaton MD [address] [place] [address] Primary Staff Physician Cardiology 07/30/18 Thuy Aguirre AQUATIC LIFE LABORER.MEDICAL SCIENTIST [address] [place] [address] Cardiology 09/05/23 Medical Laboratory Assistant Relationship Specialty Start Date End Date Mandeep Houser DO [address] [place] [address] PCP - General Family Medicine 09/01/21 Galen Heaton MD [address] [place] [address] Primary Staff Physician Cardiology 07/30/18 Thuy Aguirre, AQUATIC LIFE LABORER.MEDICAL SCIENTIST [address] [place] [address] Cardiology 09/05/23 Medical Laboratory Assistant Relationship Specialty Start Date End Date Mandeep Houser DO [address] [place] [address] PCP - General Family Medicine 09/01/21 Galen Heaton MD [address] [place] [address] Primary Staff Physician Cardiology 07/30/18 Medical Laboratory Assistant Relationship Specialty Start Date End Date Mandeep Houser DO [address] [place] [address] PCP - General Family Medicine 09/01/21 Galen Heaton MD [address] [place] [address] Primary Staff Physician Cardiology 07/30/18 Thuy Aguirre, AQUATIC LIFE LABORER.MEDICAL SCIENTIST [address] [place] [address] Cardiology 09/05/23 Medical Laboratory Assistant Relationship Specialty Start Date End Date Mandeep Houser DO [address] [place] [address] PCP - General Family Medicine 09/01/21 Galen Heaton MD [address] [place], [place] [id number] Primary Staff Physician Cardiology 07/30/18 Thuy Aguirre, AQUATIC LIFE LABORER.MEDICAL SCIENTIST [address] [place], [place] [id number] Cardiology 09/05/23 Medical Laboratory Assistant Relationship Specialty Start Date End Date Mandeep Houser DO [address] [place] [address] PCP - General Family Medicine 09/01/21 Galen Heaton MD [address] [place], [place] [id number] Primary Staff Physician Cardiology 07/30/18 Medical Laboratory Assistant Relationship Specialty Start Date End Date Mandeep Houser DO [address] [place] [address] PCP - General Family Medicine 09/01/21 Galen Heaton MD [address] [place] [address] Primary Staff Physician Cardiology 07/30/18 Thuy Aguirre, AQUATIC LIFE LABORER.MEDICAL SCIENTIST [address] [place], [place] [id number] Cardiology 09/05/23 Medical Laboratory Assistant Relationship Specialty Start Date End Date Maycol Valladares MD [address] [place] [address] PCP - General Internal Medicine 06/14/20 08/31/21 Galen Heaton MD [address] [place] [address] Primary Staff Physician Cardiology 07/30/18 Medical Laboratory Assistant Relationship Specialty Start Date End Date Maycol Valladares MD [address] [place] [address] PCP - General Internal Medicine 06/14/20 08/31/21 Galen Heaton MD [address] [place] [address] Primary Staff Physician Cardiology 07/30/18 Medical Laboratory Assistant Relationship Specialty Start Date End Date Mandeep Houser DO [address] [place] [address] PCP - General Family Medicine 09/01/21 Galen Heaton MD [address] [place] [address] Primary Staff Physician Cardiology 07/30/18 Thuy Aguirre, AQUATIC LIFE LABORER.MEDICAL SCIENTIST [address] [place] [address] Cardiology 09/05/23 Medical Laboratory Assistant Relationship Specialty Start Date End Date Mandeep Houser DO [address] [place] [address] PCP - General Family Medicine 09/01/21 Galen Heaton MD [address] [place] [address] Primary Staff Physician Cardiology 07/30/18 Thuy Aguirre, AQUATIC LIFE LABORER.MEDICAL SCIENTIST [address] [place] [address] Cardiology 09/05/23 Medical Laboratory Assistant Relationship Specialty Start Date End Date Mandeep Houser DO [address] [place] [address] PCP - General Family Medicine 09/01/21 Galen Heaton MD [address] [place] [address] Primary Staff Physician Cardiology 07/30/18 Thuy Aguirre, AQUATIC LIFE LABORER.MEDICAL SCIENTIST [address] [place] [address] Cardiology 09/05/23 Medical Laboratory Assistant Relationship Specialty Start Date End Date Mandeep Houser DO [address] [place] [address] PCP - General Family Medicine 09/01/21 Galen Heaton MD [address] [place] [address] Primary Staff Physician Cardiology 07/30/18 Thuy Aguirre, AQUATIC LIFE LABORER.MEDICAL SCIENTIST [address] [place] [address] Cardiology 09/05/23 Medical Laboratory Assistant Relationship Specialty Start Date End Date Mandeep Houser DO [address] [place] [address] PCP - General Family Medicine 09/01/21 Galen Heaton MD [address] [place] [address] Primary Staff Physician Cardiology 07/30/18 Thuy Aguirre, AQUATIC LIFE LABORER.MEDICAL SCIENTIST [address] [place] [address] Cardiology 09/05/23 Rupali Nascimento, AQUATIC LIFE LABORER.MEDICAL SCIENTIST [address] [place] [address] Nutrition And Dietetics Instructor Family Medicine 04/20/24 [facility], AQUATIC LIFE LABORER.MEDICAL SCIENTIST [address] [place] [address] Nutrition And Dietetics Instructor Family Medicine 04/20/24 Medical Laboratory Assistant Relationship Specialty Start Date End Date Mandeep Houser DO [address] [place] [address] PCP - General Family Medicine 09/01/21 Galen Heaton MD [address] [place] [address] Primary Staff Physician Cardiology 07/30/18 Thuy Aguirre, AQUATIC LIFE LABORER.MEDICAL SCIENTIST [address] [place] [address] Cardiology 09/05/23 Rupali Nascimento, AQUATIC LIFE LABORER.MEDICAL SCIENTIST [address] [place] [address] Nutrition And Dietetics Instructor Family Medicine 04/20/24 [facility], AQUATIC LIFE LABORER.MEDICAL SCIENTIST [address] [place] [address] Nutrition And Dietetics Instructor Family Medicine 04/20/24 Medical Laboratory Assistant Relationship Specialty Start Date End Date Mandeep Houser DO [address] [place] [address] PCP - General Family Medicine 09/01/21 Galen Heaton MD [address] [place] [address] Primary Staff Physician Cardiology 07/30/18 Thuy Aguirre AQUATIC LIFE LABORER.MEDICAL SCIENTIST [address] [place] [address] Cardiology 09/05/23 Rupali Nascimento AQUATIC LIFE LABORER.MEDICAL SCIENTIST [address] [place] [address] Nutrition And Dietetics Instructor Family Medicine 04/20/24 Alejandrina Harvey APRN.MEDICAL SCIENTIST [address] [place] [address] Nutrition And Dietetics Instructor Family Medicine 04/20/24 Medical Laboratory Assistant Relationship Specialty Start Date End Date Mandeep Houser DO [address] [place] [address] PCP - General Family Medicine 09/01/21 Galen Heaton MD [address] [place] [address] Primary Staff Physician Cardiology 07/30/18 Thuy Aguirre AQUATIC LIFE LABORER.MEDICAL SCIENTIST [address] [place] [address] Cardiology 09/05/23 Rupali Nascimento AQUATIC LIFE LABORER.MEDICAL SCIENTIST [address] [place] [address] Nutrition And Dietetics Instructor Family Medicine 04/20/24 Alejandrina Harvey AQUATIC LIFE LABORER.MEDICAL SCIENTIST [address] [place] [address] Nutrition And Dietetics Instructor Family Medicine 04/20/24 Medical Laboratory Assistant Relationship Specialty Start Date End Date Mandeep Houser DO [address] [place] [address] PCP - General Family Medicine 09/01/21 Galen Heaton MD [address] [place] [address] Primary Staff Physician Cardiology 07/30/18 Thuy Aguirer, AQUATIC LIFE LABORER.MEDICAL SCIENTIST [address] [place], [place] [id number] Cardiology 09/05/23 Rupali Nascimento, AQUATIC LIFE LABORER.MEDICAL SCIENTIST [address] [place] [address] Nutrition And Dietetics Instructor Family Medicine 04/20/24 Alejandrina Harvey, AQUATIC LIFE LABORER.MEDICAL SCIENTIST [address] [place] [address] Nutrition And Dietetics Instructor Family [facility] 04/20/24 Medical Laboratory Assistant Relationship Specialty Start Date End Date Mandeep Houser DO [address] [place] [address] PCP - General Family Medicine 09/01/21 Galen Heaton MD [address] [place] [address] Primary Staff Physician Cardiology 07/30/18 Thuy Aguirre, AQUATIC LIFE LABORER.MEDICAL SCIENTIST [address] [place], [place] [id number] Cardiology 09/05/23 Rupali Nascimento, AQUATIC LIFE LABORER.MEDICAL SCIENTIST [address] [place] [address] [facility] 04/20/24 Alejandrina Harvey, AQUATIC LIFE LABORER.MEDICAL SCIENTIST [address] [place] [address] [facility] 04/20/24 Medical Laboratory Assistant Relationship Specialty Start Date End Date Mandeep Houser DO [address] [place] [address] PCP - General Family Medicine 09/01/21 Galen Heaton MD [address] [place], [place] [id number] Primary Staff Physician Cardiology 07/30/18 Thuy Aguirre, AQUATIC LIFE LABORER.MEDICAL SCIENTIST [address] [place], [place] [id number] Cardiology 09/05/23 Rupali Nascimento, AQUATIC LIFE LABORER.MEDICAL SCIENTIST [address] [place] [address] [facility] 04/20/24 Alejandrina Harvey, AQUATIC LIFE LABORER.MEDICAL SCIENTIST [address] [place] [address] [facility] 04/20/24 Medical Laboratory Assistant Relationship Specialty Start Date End Date Mandeep Houser DO [address] [place] [address] PCP - General Family Medicine 09/01/21 Galen Heaton MD [address] [place], [place] [address] Primary Staff Physician Cardiology 07/30/18 Thuy Aguirre, AQUATIC LIFE LABORER.MEDICAL SCIENTIST [address] [place] [address] Cardiology 09/05/23 Alejandrina Harvey, AQUATIC LIFE LABORER.MEDICAL SCIENTIST [address] [place] [address] [facility] 04/20/24 Medical Laboratory Assistant Relationship Specialty Start Date End Date Mandeep Houser DO [address] [place] [address] PCP - General Family Medicine 09/01/21 Galen Heaton MD [address] [place] [address] Primary Staff Physician Cardiology 07/30/18 Thuy Aguirre, AQUATIC LIFE LABORER.MEDICAL SCIENTIST [address] [place] [address] Cardiology 09/05/23 Alejandrina Harvey, AQUATIC LIFE LABORER.MEDICAL SCIENTIST [address] [place] [address] [facility] 04/20/24 Medical Laboratory Assistant Relationship Specialty Start Date End Date Mandeep Houser DO [address] [place] [address] PCP - General Family Medicine 09/01/21 Galen Heaton MD [address] [place] [address] Primary Staff Physician Cardiology 07/30/18 Thuy Aguirre AQUATIC LIFE LABORER.MEDICAL SCIENTIST [address] [place] [address] Cardiology 09/05/23 Alejandrina Harvey, AQUATIC LIFE LABORER.MEDICAL SCIENTIST [address] [place] [address] Nutrition And Dietetics Instructor Family Medicine 04/20/24 Medical Laboratory Assistant Relationship Specialty Start Date End Date Mandeep Houser DO [address] [place] [address] PCP - General Family Medicine 09/01/21 Galen Heaton MD [address] [place] [address] Primary Staff Physician Cardiology 07/30/18 Thuy Aguirre, AQUATIC LIFE LABORER.MEDICAL SCIENTIST [address] [place], [place] [id number] Cardiology 09/05/23 Alejandrina Harvey, AQUATIC LIFE LABORER.MEDICAL SCIENTIST [address] [place] [address] Nutrition And Dietetics Instructor [facility] Medicine 04/20/24 Medical Laboratory Assistant Relationship Specialty Start Date End Date Mandeep Houser DO [address] [place] [address] PCP - General Family Medicine 09/01/21 Galen Heaton MD [address] [place] [address] Primary Staff Physician Cardiology 07/30/18 Thuy Aguirre, AQUATIC LIFE LABORER.MEDICAL SCIENTIST [address] [place], [place] [id number] Cardiology 09/05/23 Alejandrina Harvey, AQUATIC LIFE LABORER.MEDICAL SCIENTIST [address] [place] [address] Nutrition And Dietetics Instructor Family Medicine 04/20/24 Medical Laboratory Assistant Relationship Specialty Start Date End Date Mandeep Houser DO [address] [place] [address] PCP - General Family Medicine 09/01/21 Galen Heaton MD [address] [place] [address] Primary Staff Physician Cardiology 07/30/18 Thuy Aguirre, AQUATIC LIFE LABORER.MEDICAL SCIENTIST [address] [place], [place] [id number] Cardiology 09/05/23 Alejandrina Harvey, AQUATIC LIFE LABORER.MEDICAL SCIENTIST [facility] [place] [address] Nutrition And Dietetics Instructor Family Medicine 04/20/24 Brittani Yap, AQUATIC LIFE LABORER.MEDICAL SCIENTIST [facility] [place] [address] Nutrition And Dietetics Instructor Family Medicine 10/27/24 Medical Laboratory Assistant Relationship Specialty Start Date End Date Mandeep Houser DO [address] [place] [address] PCP - General Family Medicine 09/01/21 Galen Heaton MD [address] [place] [address] Primary Staff Physician Cardiology 07/30/18 Thuy Aguirre AQUATIC LIFE LABORER.MEDICAL SCIENTIST [address] [place], [place] [id number] Cardiology 09/05/23 Alejandrina Harvey, AQUATIC LIFE LABORER.MEDICAL SCIENTIST [address] [place] [address] Nutrition And Dietetics Instructor Family Medicine 04/20/24 Brittani Yap, AQUATIC LIFE LABORER.MEDICAL SCIENTIST [address] [place], [place] [address] [facility] 10/27/24 Medical Laboratory Assistant Relationship Specialty Start Date End Date Mandeep Houser DO [address] [place] [address] PCP - General Family Medicine 09/01/21 Galen Heaton MD [address] [place] [address] Primary Staff Physician Cardiology 07/30/18 Thuy Aguirre, AQUATIC LIFE LABORER.MEDICAL SCIENTIST [address], [place] [id number] Cardiology 09/05/23 Alejandrina Harvey, AQUATIC LIFE LABORER.MEDICAL SCIENTIST [address] [place] [address] [facility] 04/20/24 Brittani Yap, AQUATIC LIFE LABORER.MEDICAL SCIENTIST [address] [place], [place] [address] [facility] 10/27/24 Team Status: Active Member Role/Relationship Status Dates Dr. Mandeep oHuser DO Primary Care Provider Active Team Status: [...] BE BASED ON THE PRIMARY CLINICAL RECORDS. [facility] [employer] [facility]. provides no warranty or guarantee of the accuracy or completeness of information in this document.
--- NOTE | 2024-11-14 05:26 | ECHOD_ITS ---
Reason For Study Reason For Study: SYNCOPE Procedure This was a 2D Doppler, Color Flow transthoracic echocardiogram. The study was technically difficult. Patient scanned supine due to injured left side. Exam performed portable in patient room. Left Ventricle Mildly dilated left ventricle. The estimated ejection fraction is 35???40 %. Right Ventricle Normal right ventricle. Normal systolic function. Atria The left atrium is moderately enlarged. Normal right atrium. Bubble study positive. Mitral Valve The mitral valve is structurally normal. No prolapse or stenosis seen. Tricuspid Valve Normal tricuspid valve. Aortic Valve Trisinus/trileaflet aortic valve. Pulmonic Valve The pulmonic valve is not well visualized. Great Vessels The aortic root is not well visualized. Pericardium/Pleural No pericardial effusion. Medication Performed a rapid injection of agitated mix of 9 cc saline and 1cc air to assess for atrial septal defect. MMode/2D Measurements & Calculations LVIDd: 4.8 cm IVSd: 1.1 cm LVOT diam: 2.0 cm LVIDs: 3.5 cm LVPWd: 1.1 cm FS: 27.1 % LVOT area: 3.3 cm2 LAV(MOD-bp): 34.2 ml LVAd ap2: 26.8 cm2 SV(MOD-sp2): 36.9 ml LAV(MOD-bp) Indexed: 17.8 ml/m2 LVLd ap2: 6.8 cm SI(MOD-sp2): 19.2 ml/m2 LAV(MOD-sp2): 47.7 ml EDV(MOD-sp2): 87.1 ml LAV(MOD-sp4): 23.1 ml EDV(sp2-el): 89.5 ml LVAs ap2: 19.5 cm2 LVLs ap2: 6.4 cm ESV(MOD-sp2): 50.3 ml ESV(sp2-el): 50.5 ml EF(MOD-sp2): 42.3 % LA A4 area: 11.2 cm2 LA dimension(2D): 3.8 cm RA A4 area: 7.3 cm2 Time Measurements MV dec time: 0.28 sec Doppler Measurements & Calculations MV E max javier: 43.6 cm/sec Lat Peak E' Javier: 6.3 cm/sec Med Peak E' Javier: 7.0 cm/sec MV A max javier: 77.3 cm/sec E/E' lat: 6.9 E/E' med: 6.2 MV E/A: 0.56 MV V2 max: 75.6 cm/sec Ao V2 max: 129.8 cm/sec MV max P.3 mmHg MV dec slope: 153.0 cm/sec2 Ao max P.7 mmHg MV V2 mean: 44.9 cm/sec Ao V2 mean: 87.7 cm/sec MV mean P.90 mmHg Ao mean P.5 mmHg MV V2 VTI: 23.9 cm Ao V2 VTI: 30.4 cm AV (velocity ratio): 0.66 MVA(VTI): 2.7 cm2 ALYCIA(I,D): 2.1 cm2 ALYCIA(V,D): 2.5 cm2 LV V1 max: 99.6 cm/sec SV(LVOT): 65.2 ml TR max javier: 249.6 cm/sec LV V1 max P.0 mmHg TR max P.9 mmHg LV V1 mean P.3 mmHg LV V1 mean: 69.8 cm/sec LV V1 VTI: 20.0 cm ECHO/Echo Complete Interpretation Summary The estimated ejection fraction is 35???40 %. Moderate LV systolic dysfunction Grade 2 diastolic dysfunction Pacemaker/ICD lead noted on the right side Ordering Physician: Tank Cabezas Referring Physician: BRANDAN ALEX Performed By: Natalie Ríos RCS
[2024-11-14 05:36] LABS: Magnesium 2.1 mg/dL (1.5-2.2)
[2024-11-14] MEDS: 0.9% Normal Saline (1000mL) 1,000 ML 100 ML IV (06:18)
[2024-11-14 07:42] LABS: Troponin T High Sens 4 HR 20 ng/L (<=14)
--- NOTE | 2024-11-14 07:49 | PN.HOSP_ITS ---
Reason for Visit Reason for Visit: Diagnoses Obesity, class 1 (11/14/24) Essential (primary) hypertension (11/14/24) Shortness of breath (11/14/24) Other abnormalities of breathing (11/14/24) Difficulty in walking, not elsewhere classified (11/14/24) Weakness (11/14/24) Syncope and collapse (11/14/24) Generalized hyperhidrosis (11/14/24) Other specified abnormal findings of blood chemistry (11/14/24) Contusion of left front wall of thorax, subsequent encounter (11/14/24) Adverse effect of unspecified drugs, medicaments and biological substances, initial encounter (11/14/24) Unspecified fall, initial encounter (11/14/24) Presence of automatic (implantable) cardiac defibrillator (11/14/24) Subjective Subjective Patient is a 79-year-old lady admitted following an accidental fall. Patient denied feeling any lightheadedness or passing out prior to the fall patient was found to be bradycardic admitted to a monitored bed for further management Objective Data Objective Data Vital Signs: Vital Signs Temp Pulse Resp BP Pulse Ox O2 Del Method 97.8 F 55 L 15 120/80 93 Room Air 11/14/24 04:29 11/14/24 04:29 11/14/24 04:29 11/14/24 04:29 11/14/24 04:29 11/14/24 04:00 Oxygen Delivery Method Room Air Weight: 87.9 kg Body Mass Index (BMI) 33.3 Lab / Micro Data 11/14/24 01:00 Labs: Laboratory Results - last 24 hr 11/14/24 01:00: WBC 10.7, RBC 4.43, Hgb 12.9, Hct 40.3, MCV 91.0, MCH 29.1, MCHC 32.0, RDW Std Deviation 47.1 H, RDW Coeff of Julian 14.1, Plt Count 305, MPV 9.8, T roponin T High Sens 20 H 11/14/24 03:08: Magnesium 2.1, Troponin T Hi Sens 2 Hr 22 H 11/14/24 06:24: Troponin T Hi Sens 4Hr 20 H ABG Data ABG results: ABG 11/14/24 02:44 Specimen Type TRES Sample Site R Brach VBG pH 7.45 H VBG pO2 31 VBG HCO3 27 H VBG Total CO2 29 VBG O2 Sat (Calc) 62 VBG Base Excess 3 POC Mix VBG pCO2 Pt Tmp 39.4 L O2 Delivery Device Room Air Radiography Diagnostic Testing: Radiology Impression Chest CTA 11/14/24 04:08 IMPRESSION: No embolism, dissection, or pneumonia. Reading Location: [place] [address] Physical Exam Const alert, oriented x3 and no apparent distress Constitutional Narrative: Obese with elderly frail appearance. General Appearance: cooperative HEENT normocephalic, head/scalp atraumatic, hearing grossly normal bilaterally and moist oral mucous membranes Eyes PERRL, EOMs intact bilaterally and conjunctivae normal Neck no lymphadenopathy and supple Resp normal respiratory effort, no retractions, no use of accessory muscles and clear to auscultation bilaterally Cardio regular rate and regular rhythm Cardio Narrative: Bradycardia noted at ~49 bpm. GI normal to inspection, nondistended, normoactive bowel sounds, soft to palpation, non-tender and non-distended Extremity Extremity Narrative: Patient has scattered bruising on extremities from recent fall. Skin Skin Narrative: Patient has evidence of rash, abscess, wounds or jaundice. Neuro oriented x3, CN's II-XII intact bilaterally, moves all extremities and no focal motor deficits Sensorium / Orientation: awake, alert, oriented to person, oriented to place and oriented to time Speech: speech normal Assessment & Plan Assessment/Plan (1) Near syncope: (2) Contusion of left front wall of thorax, subsequent encounter: PLAN: Plan Patient is a 79-year-old lady who presented with a fall after a near syncopal episode 1. Fall. Patient was found to be orthostatic on admission as well as being bradycardic. Admitted to a monitored bed for continuous telemetry. Ordered every shift orthostatic checks. As part of her management serial cardiac enzymes and a 2D echo obtained. Initial imaging studies with CT of the head came back unremarkable 2. Essential hypertension ? Patient antihypertensives including metoprolol and losartan held given her presentation 3. Persistent bradycardia ? Attributed to patient being on beta-blockers, held on admission. Consult placed to cardiology 4. Conduction system disorder ? Status post pacemaker placement 5. Chronic congestive heart failure with preserved ejection fraction ? Currently not in exacerbation patient is on furosemide held given patient orthostatic tension 6. Hypothyroidism ? Patient is on levothyroxine home dose continued 7. DVT prophylax ?Subcu heparin Charges/Coding Visit Charges Inpatient E&M: 56837 Subs Hosp L2
[2024-11-14 08:30] LABS: CPK Total, Creatine Kinase 94 U/L (24-195); Cholesterol 202 mg/dL (<=200); Low Density Lipoprotein Calc. 117 mg/dL; Triglycerides 176 mg/dL; Very Low Density Lipoprotein 35 mg/dL (5-40); cholesterol:hdl ratio screen 4.09
[2024-11-14] MEDS: Potassium Chloride Oral Tablet 10 MEQ PO (09:19)
[2024-11-14] MEDS: Aspirin E.C. 81 MG Tablet PO (09:19)
[2024-11-14] MEDS: Heparin Injection (Vial) 5,000 UNIT/ML VIAL 5000 UNIT SC ×2 (09:19→21:51)
--- NOTE | 2024-11-14 13:57 | CON.PCM.CA_ITS ---
Assessment & Plan Assessment/Plan (1) Presence of combination internal cardiac defibrillator (ICD) and pacemaker: (2) Generalized weakness: HPI Consult Data Date of Consult: 11/15/24 HPI Narrative Reason for Consultation: Near-syncope/following recent mechanical fall. HPI Narrative: PRANAV WATKINS, is a 79 F who presents [facility] Medical History (Updated 11/14/24 @ 06:[address] Tank Cabezas, DO) Obesity Former tobacco use Hyperlipidemia HFrEF (heart failure with reduced ejection fraction) Presence of combination internal cardiac defibrillator (ICD) and pacemaker Hypertension Home Medications ?Medication ?Instructions ?Recorded ?Last Taken ?Type aspirin 81 mg tablet,delayed 81 mg PO DAILY heart heal th 03/27/24 Unknown History release (Adult Aspirin Regimen) ondansetron 8 mg disintegrating 8 mg PO Q8H PRN nausea and 11/13/24 Unknown Rx tablet vomiting #12 tabs oxycodone-acetaminophen 5 mg-325 1 tab PO Q6H PRN PRN Pain 3 days 11/13/24 Unknown Rx mg tablet #12 TABLETS simethicone 80 mg chewable tablet 160 mg PO PRN PRN ab dominal 11/13/24 Unknown History distention levothyroxine 100 mcg tablet 100 mcg PO DAILY thyroid 11/14/24 Unknown History potassium chloride 10 mEq 10 meq PO DAILY supplement 0 11/14/24 Unknown History tablet,extended release acetaminophen 325 mg tablet 650 mg (2 x 325 mg) PO Q6H PRN PRN 11/15/24 Unknown Rx Pain 1-5/10 or Fever #0 tabs Allergy/AdvReac Type Severity Reaction Status Date / Time amoxicillin (From Augmentin) AdvReac PT UNSURE Verified 11/14/24 00:49 OF REACTION clavulanic acid (From AdvReac PT UNSURE Verified 11/14/24 00:49 Augmentin) OF REACTION Surgical History S/P implantation of automatic cardioverter/defibrillator (AICD) H/O: hysterectomy History of cholecystectomy Social History household members: none Smoking Status: Former smoker how long ago did patient quit smoking: Quit ~ 20 yrs prior, smoked 1 ppd x ~ 30 yrs. alcohol intake: never substance use type: does not use Physical Exam Cardio Cardio Narrative: Patient seen evaluated at bedside Along with the nursing staff No symptoms of dizziness or lightheadedness reported she is still complaining of pain in the left shoulder. monitor worker showed normal paced rhythm. Evidently patient discharged recently from the hospital and while she was picking up her mail she had a fall she had mechanical fall resulting in a blunt force trauma to the chest wall as well as to the left shoulder. Cardiac consultation requested as the patient had a history of CRD-T Patient followed regularly with her analytical tech.. And she been seen and followed by analytical tech recently pacemaker has been checked. Other medical problem include history of hypertension Diastolic heart failure with previous echo showing LV function preserved. Multiple other medical comorbidities with hyper lipidemia hypothyroidism. Cardiac care plan; I reviewed the pacemaker interrogation/[employer] which showed normal pacer capture. Patient has a orthostatic hypotension with drop in the diastolic pressure more than 20 mmHg Checked at bedside today. Agree with the plan of conservative management to hold on blood pressure medication and start on IV fluid. Evaluated by echocardiogram and stress and continue to monitor and cardiac telemetry. Will continue to monitor and follow-up clinically and will repeat echocardiogram tomorrow. I reviewed the interrogation of the PRINTING PRESS MACHINE OPERATOR-D which showed normal function No shock or therapy by the defibrillator. As well I reviewed the echocardiogram which showed LV function is moderate ejection fraction in the range of 35-40% /ICD?pacer lead was noted on the right side No pericardial effusion From cardiac standpoint blood pressure within normal there is no further episode of orthostatic hypotension Patient can be discharged with the plan of follow-up with her primary analytical tech for continuation of cardiac care. Nancy Vasquez MD,[facility] Risk Stratification Risk Stratification Applicable: No Objective Data Vital Signs: Vital Signs Temp Pulse Resp BP Pulse Ox O2 Del Method 97.8 F 55 L 15 125/44 H 93 Room Air 11/14/24 04:29 11/14/24 04:29 11/14/24 04:29 11/14/24 13:48 11/14/24 04:29 11/14/24 04:00 Oxygen Delivery Method Room Air Weight: 193 lb 12.581 oz Body Mass Index (BMI) 33.3 Lab / Micro Data 11/15/24 05:43 11/15/24 05:43 Labs: Laboratory Results - last 24 hr 11/14/24 01:00: WBC 10.7, RBC 4.43, Hgb 12.9, Hct 40.3, MCV 91.0, MCH 29.1, MCHC 32.0, RDW Std Deviation 47.1 H, RDW Coeff of Julian 14.1, Plt Count 305, MPV 9.8, T roponin T High Sens 20 H 11/14/24 03:08: Magnesium 2.1, Troponin T Hi Sens 2 Hr 22 H 11/14/24 06:24: Hemoglobin A1c 5.9 H, Phosphorus 3.2, Total Creatine Kinase 94, Troponin T Hi Sens 4Hr 20 H, Triglycerides 176, Cholesterol 202 H, LDL Cholesterol, Calc 117, VLDL Cholesterol 35, HDL Cholesterol 49, Cholesterol/HDL Ratio 4.09, TSH 0.408 ABG Data ABG results: ABG 11/14/24 02:44 Specimen Type TRES Sample Site R Brach VBG pH 7.45 H VBG pO2 31 VBG HCO3 27 H VBG Total CO2 29 VBG O2 Sat (Calc) 62 VBG Base Excess 3 POC Mix VBG pCO2 Pt Tmp 39.4 L O2 Delivery Device Room Air Cardiology Labs/Tests 11/14/24 01:00: WBC 10.7, RBC 4.43, Hgb 12.9, Hct 40.3, MCV 91.0, MCH 29.1, MCHC 32.0, Plt Count 305, MPV 9.8 11/14/24 02:44: VBG pH 7.45 H, VBG pO2 31, VBG HCO3 27 H, VBG O2 Sat (Calc) 62, VBG Base Excess 3 11/14/24 03:08: Magnesium 2.1 11/14/24 06:24: Hemoglobin A1c 5.9 H, Phosphorus 3.2, Triglycerides 176, C holesterol 202 H, VLDL Cholesterol 35, HDL Cholesterol 49, Cholesterol/HDL Ratio 4.09 Rhythm: EKG: ECHO: Stress Test: Cardiac Cath: PCI: CT Surgery: Holter monitor: EPS: PPM: CXR: Chest CT Scan: Radiography Diagnostic Testing: Radiology Impression Chest CTA 11/14/24 04:08 IMPRESSION: No embolism, dissection, or pneumonia. Reading Location: [place] [address]
--- NOTE | 2024-11-14 13:57 | CON.PCM.CA_ITS ---
Assessment & Plan Assessment/Plan (1) Presence of combination internal cardiac defibrillator (ICD) and pacemaker: (2) Generalized weakness: HPI Consult Data Date of Consult: 11/15/24 HPI Narrative Reason for Consultation: Near-syncope/following recent mechanical fall. HPI Narrative: PRANAV WATKINS, is a 79 F who presents [facility] Medical History (Updated 11/14/24 @ 06:[address] Tank Cabezas, DO) Obesity Former tobacco use Hyperlipidemia HFrEF (heart failure with reduced ejection fraction) Presence of combination internal cardiac defibrillator (ICD) and pacemaker Hypertension Home Medications ?Medication ?Instructions ?Recorded ?Last Taken ?Type aspirin 81 mg tablet,delayed 81 mg PO DAILY heart heal th 03/27/24 Unknown History release (Adult Aspirin Regimen) ondansetron 8 mg disintegrating 8 mg PO Q8H PRN nausea and 11/13/24 Unknown Rx tablet vomiting #12 tabs oxycodone-acetaminophen 5 mg-325 1 tab PO Q6H PRN PRN Pain 3 days 11/13/24 Unknown Rx mg tablet #12 TABLETS simethicone 80 mg chewable tablet 160 mg PO PRN PRN ab dominal 11/13/24 Unknown History distention levothyroxine 100 mcg tablet 100 mcg PO DAILY thyroid 11/14/24 Unknown History potassium chloride 10 mEq 10 meq PO DAILY supplement 0 11/14/24 Unknown History tablet,extended release acetaminophen 325 mg tablet 650 mg (2 x 325 mg) PO Q6H PRN PRN 11/15/24 Unknown Rx Pain 1-5/10 or Fever #0 tabs Allergy/AdvReac Type Severity Reaction Status Date / Time amoxicillin (From Augmentin) AdvReac PT UNSURE Verified 11/14/24 00:49 OF REACTION clavulanic acid (From AdvReac PT UNSURE Verified 11/14/24 00:49 Augmentin) OF REACTION Surgical History S/P implantation of automatic cardioverter/defibrillator (AICD) H/O: hysterectomy History of cholecystectomy Social History household members: none Smoking Status: Former smoker how long ago did patient quit smoking: Quit ~ 20 yrs prior, smoked 1 ppd x ~ 30 yrs. alcohol intake: never substance use type: does not use Physical Exam Cardio Cardio Narrative: Patient seen evaluated at bedside Along with the nursing staff No symptoms of dizziness or lightheadedness reported she is still complaining of pain in the left shoulder. phonograph needle tip maker showed normal paced rhythm. Evidently patient discharged recently from the hospital and while she was picking up her mail she had a fall she had mechanical fall resulting in a blunt force trauma to the chest wall as well as to the left shoulder. Cardiac consultation requested as the patient had a history of CRD-T Patient followed regularly with her driver/sales workers.. And she been seen and followed by driver/sales workers recently pacemaker has been checked. Other medical problem include history of hypertension Diastolic heart failure with previous echo showing LV function preserved. Multiple other medical comorbidities with hyper lipidemia hypothyroidism. Cardiac care plan; I reviewed the pacemaker interrogation/[employer] which showed normal pacer capture. Patient has a orthostatic hypotension with drop in the diastolic pressure more than 20 mmHg Checked at bedside today. Agree with the plan of conservative management to hold on blood pressure medication and start on IV fluid. Evaluated by echocardiogram and stress and continue to monitor and cardiac telemetry. Will continue to monitor and follow-up clinically and will repeat echocardiogram tomorrow. I reviewed the interrogation of the RANGE MANAGEMENT SPECIALIST-D which showed normal function No shock or therapy by the defibrillator. As well I reviewed the echocardiogram which showed LV function is moderate ejection fraction in the range of 35-40% /ICD?pacer lead was noted on the right side No pericardial effusion From cardiac standpoint blood pressure within normal there is no further episode of orthostatic hypotension Patient can be discharged with the plan of follow-up with her primary driver/sales workers for continuation of cardiac care. Nancy Vasquez MD,[facility] Risk Stratification Risk Stratification Applicable: No Objective Data Vital Signs: Vital Signs Temp Pulse Resp BP Pulse Ox O2 Del Method 97.8 F 55 L 15 125/44 H 93 Room Air 11/14/24 04:29 11/14/24 04:29 11/14/24 04:29 11/14/24 13:48 11/14/24 04:29 11/14/24 04:00 Oxygen Delivery Method Room Air Weight: 193 lb 12.581 oz Body Mass Index (BMI) 33.3 Lab / Micro Data 11/15/24 05:43 11/15/24 05:43 Labs: Laboratory Results - last 24 hr 11/14/24 01:00: WBC 10.7, RBC 4.43, Hgb 12.9, Hct 40.3, MCV 91.0, MCH 29.1, MCHC 32.0, RDW Std Deviation 47.1 H, RDW Coeff of Julian 14.1, Plt Count 305, MPV 9.8, T roponin T High Sens 20 H 11/14/24 03:08: Magnesium 2.1, Troponin T Hi Sens 2 Hr 22 H 11/14/24 06:24: Hemoglobin A1c 5.9 H, Phosphorus 3.2, Total Creatine Kinase 94, Troponin T Hi Sens 4Hr 20 H, Triglycerides 176, Cholesterol 202 H, LDL Cholesterol, Calc 117, VLDL Cholesterol 35, HDL Cholesterol 49, Cholesterol/HDL Ratio 4.09, TSH 0.408 ABG Data ABG results: ABG 11/14/24 02:44 Specimen Type TRES Sample Site R Brach VBG pH 7.45 H VBG pO2 31 VBG HCO3 27 H VBG Total CO2 29 VBG O2 Sat (Calc) 62 VBG Base Excess 3 POC Mix VBG pCO2 Pt Tmp 39.4 L O2 Delivery Device Room Air Cardiology Labs/Tests 11/14/24 01:00: WBC 10.7, RBC 4.43, Hgb 12.9, Hct 40.3, MCV 91.0, MCH 29.1, MCHC 32.0, Plt Count 305, MPV 9.8 11/14/24 02:44: VBG pH 7.45 H, VBG pO2 31, VBG HCO3 27 H, VBG O2 Sat (Calc) 62, VBG Base Excess 3 11/14/24 03:08: Magnesium 2.1 11/14/24 06:24: Hemoglobin A1c 5.9 H, Phosphorus 3.2, Triglycerides 176, C holesterol 202 H, VLDL Cholesterol 35, HDL Cholesterol 49, Cholesterol/HDL Ratio 4.09 Rhythm: EKG: ECHO: Stress Test: Cardiac Cath: PCI: CT Surgery: Holter monitor: EPS: PPM: CXR: Chest CT Scan: Radiography Diagnostic Testing: Radiology Impression Chest CTA 11/14/24 04:08 IMPRESSION: No embolism, dissection, or pneumonia. Reading Location: [place] [address]
[2024-11-14 15:25] LABS: Color, Urine Yellow (Yellow); Glucose, Dipstick Normal (Normal); Ketone-Dipstick Negative (Negative); Leukocyte Esterase-Dipstick Negative /ul (Negative); Nitrite-Dipstick Negative (Negative); Occult Blood-Urine Negative /ul (Negative); Protein-Dipstick 30 mg/dl (Negative); Specific Gravity, Urine 1.015 (1.002-1.030); Urine Bilirubin Dipstick Negative (Negative)
[2024-11-15 03:50] VITALS: BMI 33.7
[2024-11-15 04:00] VITALS: BP 132/53; PULSE 57; RESP 18; TEMP 35.5; O2SAT 92
[2024-11-15 06:38] LABS: Hematocrit 35.1 % (37-47); Hemoglobin 10.8 g/dL (12.0-15.0); Immature Granulocytes Count 0.040 X10^3/uL (0.0-0.0); Mean Corp Hgb Conc 30.8 g/dL (32-36); Mean Corpuscular Volume 94.1 fL (81-99); Mean Platelet Vol. 10.2 fl (6.2-12.0); NRBC Flagged by Analyzer 0 % (0-5); Platelet Count 266 K/mm3 (150-450); RBC Distribution Width CV 14.5 % (11.6-14.6); RBC Distribution Width SD 50.0 fl (35.1-43.9); Red Blood Count 3.73 M/mm3 (4.2-5.4); White Blood Count 6.0 K/mm3 (4.4-11.0)
[2024-11-15 06:58] LABS: AST(SGOT) 22 U/L (<=31); Alanine Aminotransfer ALT/SGPT 17 U/L (<=34); Albumin, Serum 3.4 g/dL (3.4-4.8); Alkaline Phosphatase 54 U/L (35-104); Anion Gap 8 (5-15); BUN 17 mg/dL (4-19); BUN/Creat Ratio 21.9 RATIO (10-20); Calcium,Total 8.3 mg/dL (7.6-11.0); Carbon Dioxide 23.1 mmol/L (21.0-32.0); Chloride 110 mmol/L (98-108); Estimated Creatinine Clearance 62.64 ml/min (50-250); Globulin 2.8 g/dL (2.2-4.2); Glucose 86 mg/dL (70-99); Potassium 4.0 mmol/L (3.3-5.1)
[2024-11-15 07:10] VITALS: O2SAT 94
--- NOTE | 2024-11-15 07:47 | PCM.PN.HOSP ---
Reason for Visit Reason for Visit: Diagnoses Obesity, class 1 (11/14/24) Essential (primary) hypertension (11/14/24) Shortness of breath (11/14/24) Other abnormalities of breathing (11/14/24) Difficulty in walking, not elsewhere classified (11/14/24) Weakness (11/14/24) Syncope and collapse (11/14/24) Generalized hyperhidrosis (11/14/24) Other specified abnormal findings of blood chemistry (11/14/24) Contusion of left front wall of thorax, subsequent encounter (11/14/24) Adverse effect of unspecified drugs, medicaments and biological substances, initial encounter (11/14/24) Unspecified fall, initial encounter (11/14/24) Presence of automatic (implantable) cardiac defibrillator (11/14/24) Subjective Subjective Change seen heart rates in the 50s. Patient complains of left-sided rib pain. Patient attributed this to where she fell. Cardiology recommended for patient to undergo further evaluation including 2D echo and pacer interrogation which is scheduled to be performed this a.m. Objective Data Objective Data Vital Signs: Vital Signs Temp Pulse Resp BP Pulse Ox O2 Del Method 95.9 F L 57 L 18 132/53 H 92 Room Air 11/15/24 04:00 11/15/24 04:00 11/15/24 04:00 11/15/24 04:00 11/15/24 04:00 11/15/24 04:00 Oxygen Delivery Method Room Air Weight: 89.1 kg Body Mass Index (BMI) 33.7 Intake & Output: Intake and Output for Last 24 Hours 11/13/24 11/14/24 11/15/24 23:59 23:59 23:59 Intake Total 1000.00 / 1350.00 650 / 650 Balance 1000.00 / 1350.00 650 / 650 Lab / Micro Data 11/15/24 05:43 11/15/24 05:43 Labs: Laboratory Results - last 24 hr 11/14/24 06:24: Hemoglobin A1c 5.9 H, Phosphorus 3.2, Total Creatine Kinase 94, Triglycerides 176, Cholesterol 202 H, LDL Cholesterol, Calc 117, VLDL Cholesterol 35, HDL Cholesterol 49, Cholesterol/HDL Ratio 4.09, TSH 0.408 11/14/24 14:53: Urine Color Yellow, Urine Clarity Clear, Urine pH 6.0, Ur Specific [place] 1.015, Urine Protein 30 H, Urine Glucose (UA) Normal, Urine Ketones Negative, Urine Occult Blood Negative, Urine Nitrite Negative, Urine Bilirubin Negative, Urine Urobilinogen Normal, Ur Leukocyte Esterase Negative 11/15/24 05:43: WBC 6.0, RBC 3.73 L, Hgb 10.8 L, Hct 35.1 L, MCV 94.1, MCH 29.0, MCHC 30.8 L, RDW Std Deviation 50.0 H, RDW Coeff of Julian 14.5, Plt Count 266, MPV 10.2, Immature Gran % (Auto) 0.700, Neut % (Auto) 35.8 L, Lymph % (Auto) 50.8 H, [place] % (Auto) 8.2, Eos % (Auto) 3.5, Baso % (Auto) 1.0, Absolute Neuts (auto) 2.1, Absolute Lymphs (auto) 3.04, Nucleated RBC % 0, Sodium 141, Potassium 4.0, Chloride 110 H, Carbon Dioxide 23.1, Anion Gap 8, BUN 17, Creatinine 0.79, Estim Creat Clear Calc 62.64, Est GFR (MDRD) Non-Af 77, BUN/Creatinine Ratio 21.9 H, Glucose 86, Calcium 8.3, Total Bilirubin 0.37, AST 22, ALT 17, Alkaline Phosphatase 54, Total Protein 6.1, Albumin 3.4, Globulin 2.8, Albumin/Globulin Ratio 1.2 Physical Exam Narrative GENERAL: cooperative HEENT: Atraumatic; normocephalic EYES; Anicteric, Normal Conjunctiva NECK; supple, normal thyroid, RESPIRATORY: Diminished to auscultation CARDIOVASCULAR: Regular S1 S2, GI: soft, normoactive bowel sounds, : No Renal angle tenderness; EXTREMITIES: No edema, no clubbing, MUSCULOSKELETAL: no muscle wasting NEURO: Awake; no lateralizing signs. SKIN: No Rash PSYCH; Flat affect Assessment & Plan Assessment/Plan (1) Near syncope: (2) Contusion of left front wall of thorax, subsequent encounter: PLAN: Plan Patient is a 79-year-old lady who presented with a fall after a near syncopal episode 1. Fall. Patient was found to be orthostatic on admission as well as being bradycardic. Admitted to a monitored bed for continuous telemetry. Ordered every shift orthostatic checks. As part of her management serial cardiac enzymes and a 2D echo obtained. Initial imaging studies with CT of the head came back unremarkable ? 11/15/2024 patient complaining of left-sided rib pain. Will continue with current pain meds and use of incentive spirometry encouraged 2. Essential hypertension ? Patient antihypertensives including metoprolol and losartan held given her presentation 3. Persistent bradycardia ? Attributed to patient being on beta-blockers, held on admission. Consult placed to cardiology ? 11/15/2024; cardiology recommended for patient to undergo further evaluation including 2D echo and pacer interrogation which is scheduled to be performed this a.m. 4. Conduction system disorder ? Status post pacemaker placement 5. Chronic congestive heart failure with preserved ejection fraction ? Currently not in exacerbation patient is on furosemide held given patient orthostatic tension 6. Hypothyroidism ? Patient is on levothyroxine home dose continued 7. DVT prophylax ?Subcu heparin Charges/Coding Visit Charges Inpatient E&M: 40408 Subs Hosp L2
[2024-11-15 08:41] VITALS: BP 147/77; PULSE 58; RESP 14; TEMP 36.6; O2SAT 91
[2024-11-15] MEDS: Heparin Injection (Vial) 5,000 UNIT/ML VIAL 5000 UNIT SC (08:45)
[2024-11-15] MEDS: Aspirin E.C. 81 MG Tablet PO (08:45)
[2024-11-15] MEDS: Potassium Chloride Oral Tablet 10 MEQ PO (08:45)
--- NOTE | 2024-11-15 09:48 | CASEMGMT ---
CARO CORTES Assessment: Face to Face with pt for initial transition planning/care coordination assessment. RN SOPHIA introduced self and role at [facility], pt voices understanding and consents to assessment. Pt is A&O x4 and answers all questions appropriately at this time. Care providers, pharmacy, and demographics verified/updated. Strata: 2 Admitting Dx: Near syncopal event with diaphoresis and SOB PCP: Mik Specialists: [facility], Letty for GI, Does not recall doctor's names. [facility]erred Pharmacy: [facility] Insurance: [facility] and [employer] Prescription Benefit: yes LNOK: Daughter, Julia; Sister, Louisa Living Arrangements: Pt lives with daughter in a 1 level home with a couple steps to enter. ADLs: Pt reports I with ADLs and IADLs. Transportation: Pt drives self and denies concerns with transportation. DME: Walker, Shower bench, Cane. HHC/SNF: Denies Hx of Pt states no concerns with going home at time of dc. Pt states no further concerns/needs. CM to follow. Advised pt to ask CM if any further question/concerns/needs arise, voices understanding. Pt Goal: Home Plan: Home with family support. Nathen ELIZONDO CM
--- NOTE | 2024-11-15 09:48 | CASEMGMT ---
CARO CORTES Assessment: Face to Face with pt for initial transition planning/care coordination assessment. RN SOPHIA introduced self and role at [facility], pt voices understanding and consents to assessment. Pt is A&O x4 and answers all questions appropriately at this time. Care providers, pharmacy, and demographics verified/updated. Strata: 2 Admitting Dx: Near syncopal event with diaphoresis and SOB PCP: Mik Specialists: [facility], Letty for GI, Does not recall doctor's names. Preferred Pharmacy: [facility] Insurance: [facility] and [employer] Prescription Benefit: yes LNOK: Daughter, Julia; Sister, Louisa Living Arrangements: Pt lives with daughter in a 1 level home with a couple steps to enter. ADLs: Pt reports I with ADLs and IADLs. Transportation: Pt drives self and denies concerns with transportation. DME: Walker, Shower bench, Cane. HHC/SNF: Denies Hx of Pt states no concerns with going home at time of dc. Pt states no further concerns/needs. CM to follow. Advised pt to ask CM if any further question/concerns/needs arise, voices understanding. Pt Goal: Home Plan: Home with family support. Nathen ELIZONDO CM
--- NOTE | 2024-11-15 11:14 | CASEMGMT ---
RN CM discussed HHC option with Pt, PT recommending. Pt denies wanting any HHC at this time.
--- NOTE | 2024-11-15 11:14 | CASEMGMT ---
RN CM discussed HHC option with Pt, PT recommending. Pt denies wanting any HHC at this time.
--- NOTE | 2024-11-15 14:53 | PCM.DC.SUM ---
Providers Date of Admission: 11/14/24 Date of Discharge: 11/15/24 Primary Care Physician: Dr. Mandeep Houser, DO Consultations 11/14/24 05:26 Consult: Cardiology Routine Consulting Provider: Black Ramos Reason for Consult: Near syncope with elevated troponin. EMERGENT Consult: No MD Notified: Yes Date Notified: 11/14/24 Time Notified: 06:25 Method of Notification: Text Method of Consult:: In-Person Reason For Visit: NEAR SYNCOPAL EVENT WITH DIAPHORESIS & SHIORTNESS Diagnosis Discharge Diagnosis (1) Near syncope: Status: Acute Code(s): R55 - Syncope and collapse (2) Contusion of left front wall of thorax, subsequent encounter: Status: Acute Code(s): S20.212D - Contusion of left front wall of thorax, subsequent encounter Plan Patient is a 79-year-old lady who presented with a fall after a near syncopal episode 1. Fall. Patient was found to be orthostatic on admission as well as being bradycardic. Admitted to a monitored bed for continuous telemetry. Ordered every shift orthostatic checks. As part of her management serial cardiac enzymes and a 2D echo obtained. Initial imaging studies with CT of the head came back unremarkable ? 11/15/2024 patient complaining of left-sided rib pain. Will continue with current pain meds and use of incentive spirometry encouraged 2. Essential hypertension ? Patient antihypertensives including metoprolol and losartan held given her presentation ? Patient antihypertensives were held on discharge instructed to follow-up with primary care physician prior to resumption 3. Persistent bradycardia ? Attributed to patient being on beta-blockers, held on admission. Consult placed to cardiology ? 11/15/2024; cardiology recommended for patient to undergo further evaluation including 2D echo and pacer interrogation which is scheduled to be performed this a.m. ? 11/15/2024; Case was discussed with Dr. Vasquez with cardiology recommended for discontinuation of beta-blockers and for patient to follow-up with her primary parking inspector 4. Conduction system disorder ? Status post pacemaker placement ? Patient had pacer interrogation during her hospital stay 5. Chronic congestive heart failure with preserved ejection fraction ? Currently not in exacerbation patient is on furosemide held given patient orthostatic tension 6. Hypothyroidism ? Patient is on levothyroxine home dose continued 7. DVT prophylax ?Subcu heparin Medications at Discharge Home Medications aspirin 81 mg tablet,delayed release (Adult Aspirin Regimen) 81 mg PO DAILY 03/27/24 ondansetron 8 mg disintegrating tablet 8 mg PO Q8H PRN nausea and vomiting #12 tabs 11/13/24 oxycodone-acetaminophen 5 mg-325 mg tablet 1 tab PO Q6H PRN PRN Pain 3 days #12 TABLETS 11/13/24 simethicone 80 mg chewable tablet 160 mg PO PRN PRN abdominal distention 11/13/24 levothyroxine 100 mcg tablet 100 mcg PO DAILY 11/14/24 potassium chloride 10 mEq tablet,extended release 10 meq PO DAILY 11/14/24 acetaminophen 325 mg tablet 650 mg (2 x 325 mg) PO Q6H PRN PRN Pain 1-09/20 or Fever #0 tabs 11/15/24 Hospital Course Summary of Care Provided Minutes Spent on Discharge: 35 Physical Exam Narrative GENERAL: cooperative HEENT: Atraumatic; normocephalic EYES; Anicteric, Normal Conjunctiva NECK; supple, normal thyroid, RESPIRATORY: Diminished to auscultation CARDIOVASCULAR: Regular S1 S2, GI: soft, normoactive bowel sounds, : No Renal angle tenderness; EXTREMITIES: No edema, no clubbing, MUSCULOSKELETAL: no muscle wasting NEURO: Awake; no lateralizing signs. SKIN: No Rash PSYCH; Flat affect Weight / BMI Weight Weight: 89.1 kg Body Mass Index (BMI) 33.7 ABG / Lab / Microbiology Data 11/15/24 05:43 11/15/24 05:43 Laboratory: Laboratory Results - last 24 hr 11/14/24 14:53: Urine Color Yellow, Urine Clarity Clear, Urine pH 6.0, Ur Specific [place] 1.015, Urine Protein 30 H, Urine Glucose (UA) Normal, Urine Ketones Negative, Urine Occult Blood Negative, Urine Nitrite Negative, Urine Bilirubin Negative, Urine Urobilinogen Normal, Ur Leukocyte Esterase Negative 11/15/24 05:43: WBC 6.0, RBC 3.73 L, Hgb 10.8 L, Hct 35.1 L, MCV 94.1, MCH 29.0, MCHC 30.8 L, RDW Std Deviation 50.0 H, RDW Coeff of [place] 14.5, Plt Count 266, MPV 10.2, Immature Gran % (Auto) 0.700, Neut % (Auto) 35.8 L, Lymph % (Auto) 50.8 H, [place] % (Auto) 8.2, Eos % (Auto) 3.5, Baso % (Auto) 1.0, Absolute Neuts (auto) 2.1, Absolute Lymphs (auto) 3.04, Nucleated RBC % 0, Sodium 141, Potassium 4.0, Chloride 110 H, Carbon Dioxide 23.1, Anion Gap 8, BUN 17, Creatinine 0.79, Estim Creat Clear Calc 62.64, Est GFR (MDRD) Non-Af 77, BUN/Creatinine Ratio 21.9 H, Glucose 86, Calcium 8.3, Total Bilirubin 0.37, AST 22, ALT 17, Alkaline Phosphatase 54, Total Protein 6.1, Albumin 3.4, Globulin 2.8, Albumin/Globulin Ratio 1.2 D/C Instructions Discharge Diet: No restrictions Discharge Activity: Return to Normal Activity Call your doctor if you observe: Fever of 101 or Higher, Shortness of breath, Fainting spells and Chest pain DC O2, CPAP, BIPAP Needs Home O2 Discharge instructions: No Meaningful Use Info Meaningful Use Meaningful Use Diagnoses (Choose all that apply): None applicable Ischemic Stroke Statin Dosing Therapy Reference: STATIN DOSE THERAPY REFERENCE: * Patients > 75 years receive moderate or high dose statin therapy. * Patients 75 years or YOUNGER should receive HIGH intensity statin dose unless contraindicated. You will be required to document reason for non-treatment if statin daily dose does not meet guidelines. HIGH DOSE STATIN THERAPY DAILY Atorvastatin > than or = to 40 mg Rosuvastatin > than or = to 20 mg Amlodipine + Atorvastatin > than or = to 2.5/40 mg Ezetimibe + Simvastatin 10/80 mg Simvastatin 80mg Discharge Plan Admission Admit Date/Time: 11/14/24 04:51 Attending Provider: Tank Jones Primary Care Provider: Mandeep Houser Consulting Providers: Shell Dennis; Annmarie Thorne; Naima Coffman; Edvin Flores; Abraham Cueva; Samson Mooney; Josh Britton; Nancy Vasquez; Jeffrey Ziegler; Yousuf Parker; Edgardo Urena; Dmitry Armstrong; Ruslan Mackey NP; Leslie Gray; Rancho Harvey; Tank Cabezas Discharge Orders/Prescriptions Prescriptions: New acetaminophen 325 mg Tablet 650 mg PO Q6H PRN PRN (Reason: Pain 1-5/ or Fever) Qty: 0 0RF Continued aspirin [Adult Aspirin Regimen] 81 mg tablet,delayed release (DR/EC) 81 mg PO DAILY simethicone 80 mg tablet,chewable 160 mg PO PRN PRN (Reason: abdominal distention) oxycodone-acetaminophen 5-325 mg tablet 1 tab PO Q6H PRN PRN (Reason: Pain) 3 Days Qty: 12 0RF ondansetron 8 mg tablet,disintegrating 8 mg PO Q8H PRN (Reason: nausea and vomiting) Qty: 12 0RF levothyroxine 100 mcg tablet 100 mcg PO DAILY potassium chloride 10 mEq tablet extended release 10 meq PO DAILY Discontinued losartan 25 mg tablet 25 mg PO DAILY furosemide 20 mg tablet 20 mg PO DAILY metoprolol succinate 25 mg tablet extended release 24 hr 25 mg PO QHS Referrals / Follow Up: Josh Britton MD [Med Staff - Active Staff] - Within 2 Weeks Mandeep Houser DO [Primary Care Provider] - Within 1 Week Disposition Disposition (needs filled in before D/C Order can be placed): Home, Self Care Charges/Coding Visit Charges Inpatient E&M: 84072 Disch Hosp >30min
[2024-11-15 15:09] VITALS: BP 137/73; PULSE 62; RESP 14; TEMP 36.6; O2SAT 93
== END 2024-11-15 17:36 | disposition home or self-care (01) | DRG 312 ==
LOC: ED 03:54 → PCU 05:11
PROVIDERS: Admitting Provider Internal Medicine; Emergency Provider Emergency Medicine; PCP Student in an Organized Health Care Education/Training Program; Visit Provider Internal Medicine
DX: R55 Syncope and collapse (principal); I50.32 Chronic diastolic (congestive) heart failure; E03.9 Hypothyroidism, unspecified; I11.0 Hypertensive heart disease with heart failure; E66.9 Obesity, unspecified; R00.1 Bradycardia, unspecified; K58.9 Irritable bowel syndrome, unspecified; S20.212A Contusion of left front wall of thorax, initial encounter; W19.XXXA Unspecified fall, initial encounter; Z79.82 Long term (current) use of aspirin; Z87.891 Personal history of nicotine dependence; Z79.899 Other long term (current) drug therapy; Z95.810 Presence of automatic (implantable) cardiac defibrillator; Z68.34 Body mass index [BMI] 34.0-34.9, adult
CPT/HCPCS: 36415; 70450; 71045; 71250; 71275; 73130; 80048; 80053; 80061; 81001; 81002; 82550; 82803; 82962; 83036; 83735; 84100; 84443; 84484; 85025; 85027; 93005; 93288; 93289; 93306; 97116; 97161; 97165; 97530; 97535; 99284; 99285; Q9967; A4216; J2405

== ENCOUNTER 2025-01-27 10:30 | Outpatient (RCR) | payer MEDICARE, OTHER, SELFPAY ==
--- NOTE | 2024-12-30 12:51 | HP.PTEVAL ---
Patient's Visit Information Visit Information Visit Information: PRANAV WATKINS is a 79 year old F referred to Physical Therapy by Dr. Silvio Jaffe MD with a diagnosis of thoracic spondylosis. Date of Evaluation: 12/30/24 Physical Therapist: Mitul Sharma, DPT, OCS, CSCS Visit Plan Frequency: 2x /Week Duration: 4-6 Weeks Plan: 2x/week for 4-6 weeks... IE HEP: trunk rotation 20x, PT 10x, skc 10x, seated thoracic rotation 10x all 3x/day. with HO has pacemaker Treat with. 1. MH and STM to thoracic and LB 2. progression of turn ROM, HS stretches, 3. core strength and return to fucniton walking, steps etc. Subjective Subjective: Dr. Jaffe sent over for back pain and spasms. Fell November 13 due to turning and catching foot on sidewalk. No balance problems, just caught foot. Back pain severe since. Nothing broken as squad took her to hospital. Family doctor sent for pain mgmt as it lingered. Has somee scoliosis and OA but really got painful with fall. Pain is mid back adn wrapped around and was black and blue on R side. No leg or arm symptoms. Improving overall but turning and lifting things are still painful. Hard to bend over. Sleeping is OK if shee stays still for the last couple nights. Spnds day crocheting and reading. Watches some TV. Basic ADLs: all I. Lives with dtr adn she is away during the day. No regular exercises Hobbies : hard to drive right now and gt out and into car, twisting hurts. Pain thoracic pain: Pain Intensity (Out of 10): 0 Pain Intensity Range: 0 and 5 Comment: sitting can be worse adn twisting. Objective Objective: Stiff gait adn slow and hesitant but I. Trasnfer chair requires UE, bed slow but I, has to roll to side to sit up with less pain in mid back. thoracic/lumbar AROM ext mod limited, flexion max limited, SB min limited, rotation L mod limited vs R min limited and painful L side. UE and LE sensation WFL to lgiht touch. strength in UE and LE is 3+ without myotomal problems, slow movement. reflexes 2/3 bi and tri adn patella adn achilles 20 second TUG. - slump, - SLR Balance/Special Test Scores Functional Gait Assessment Score: 24 % Disability: 20.0000 Oswestry Low Back Score: 15 Goals Goal 1:: Pt feel 75% back to normal activity and pain 1/10 at worst Goal Time Frame: 4-6 Weeks Goal 2:: Pt drive and gt out of chair at normal pace Goal Time Frame: 4-6 Weeks Goal 3:: I appropriate HEP to minimize future problems Goal Time Frame: 4-6 Weeks Goal 4:: oswestry score 5 or better Goal Time Frame: 4-6 Weeks Rehabilitation Potential Physical Therapy Diagnosis: stiffness and ROM and strength deficits limiting comfortablee function. Rehabilitation Potential: Good Anticipated Interventions Patient/Client Instruction: Educate patient on: Condition and Plan of Care For the Purpose of:: To decrease pain, To increase ROM, To improve nutrient delivery to tissue, To improve muscle performance and motor function and To increase tolerance to activity/condition/position Therapeutic Exercise to Include: Strength training, Postural training, Flexibilty training, Passive ROM, Active ROM and Dynamic Lumbar Stabilization For the Purpose of:: To decrease pain, To increase ROM, To improve nutrient delivery to tissue, To improve muscle performance and motor function, To increase tolerance to activity/condition/position, To improve ability of physical actions for home/community/work/leisure and To improve gait and locomotor functions Manual Therapy Techniques to Include: Mobilization, Passive ROM and Soft tissue mobilization For the Purpose of:: To decrease pain, To increase ROM and To improve nutrient delivery to tissue Thermo therapy (hot pack): Yes For the Purpose of:: To improve nutrient delivery to tissue Text: Thank you for the opportunity to evaluate your patient. For Medicare and Medicare HMO plans, please review the plan of care and approve it. It will need to be FAXED BACK to us at [phone] for Medicare purposes. For Medicare only, by signing this I certify the plan of care. Please let me know if there are questions or concerns regarding this plan of care. Physician Signature: Date:
--- NOTE | 2025-01-27 11:14 | HP.PTDCSUM ---
Discharge Summary D/C summary: It has been my pleasure to treat PRANAV WATKINS referred by Dr. Silvio Jaffe MD, with the diagnosis of thoracic spondylosis for a total of 9 visit(s). Discharge Date: 01/27/25 Please see the following information for a summary of their discharge status. Subjective Subjective: Getting better, able to move around without pain. I am doing what I need to be. Activities: normal. Sleeping Ok. Driving now. HEP: sometimes. Helping sister in the last week. Dr. Jaffe in a couple weeks. Pain Bilateral Back: Pain Intensity (Out of 10): 0 thoracic pain: Pain Intensity (Out of 10): 0 Overall Improvement % Improvement: 95 Objective Objective/Function: Exit and sit in chair easily adn no pain or hesitation. Walks without antalgia easily with good balance. Lumbar AROM without pain today all directions and funcitonal movememnt. Oveerall much better and happy. Goals Goal 1:: Pt feel 75% back to normal activity and pain 1/10 at worst Goal Progress: Goal Met Goal 2:: Pt drive and gt out of chair at normal pace Goal Progress: Goal Met Goal 3:: I appropriate HEP to minimize future problems Goal Progress: met Goal 4:: oswestry score 5 or better Goal Progress: Goal Met Plan Plan: d/c D/C Information Discharge Comments: to continue via HEP and f/u doctor in 2 weeks d/c sentence: If there are questions or concerns regarding this patient's physical therapy, please feel free to call me at [phone]. Thank you for the referral of this patient. Sincerely, Mitul Sharma, DPT, OCS, CSCS Balance/Gait/Functional tests Balance/Special Test Scores Functional Gait Assessment Score: 24 % Disability: 20.0000 Oswestry Low Back Score: 0 Improvement % Improvement: 95
== END 2025-01-27 12:53 | disposition home or self-care (01) ==
LOC: PT 10:30
PROVIDERS: PCP Student in an Organized Health Care Education/Training Program; Referring Provider Anesthesiology; Visit Provider Anesthesiology
DX: M47.814 Spondylosis without myelopathy or radiculopathy, thoracic region (principal)
CPT/HCPCS: 97110; 97140; 97162; 97164